=== PATIENT | male | born 1970 | race Caucasian/White ===

== ENCOUNTER 2018-08-18 11:01 | Outpatient (REF) | payer MEDICAID, SELFPAY ==
[2018-08-18 20:40] LABS: Anion Gap 9.7 mmol/L (3-11); BUN 14 mg/dL (7-18); CO2 29.3 mmol/L (21.0-32.0); CREATININE 0.86 mg/dL (0.70-1.30); Calcium 9.1 mg/dL (8.5-10.1); Chloride 103 mmol/L (98-107); Glucose 121 mg/dL (70-100); Potassium 4.5 mmol/L (3.5-5.1); Sodium 142 mmol/L (136-145); TSH 1.41 uIU/mL (0.358-3.74); Troponin I 0.02 ng/mL (0.00-0.06)
== END 2018-08-18 11:21 ==
LOC: NCHCN 11:01
PROVIDERS: PCP Internal Medicine; Visit Provider Nurse Practitioner Family
DX: R00.2 Palpitations (principal)
CPT/HCPCS: 80048; 84443; 84484

== ENCOUNTER 2019-03-13 18:02 | Emergency (ER) | payer MEDICAID, SELFPAY ==
[2019-03-13] VITALS (7 sets, daily range): BP systolic 134–146; BP diastolic 67–82; PULSE 64–91; RESP 15–22; TEMP 36.7; O2SAT 100
--- NOTE | 2019-03-13 18:08 | DI.CT_ITS ---
SYMPTOM/DIAGNOSIS: CHEST/BACK AND ABD PAIN CTA CHEST, ABDOMEN AND PELVIS: CT angiography was performed with multi slice acquisition and multi planar and 3D reconstruction. CT angiography of the chest, abdomen and pelvis was performed with a bolus infusion of 125 cc's of Omnipaque 350. The lungs are clear except for an incidental 2 mm. non calcified right middle lobe nodule. No mediastinal or hilar adenopathy. No thoracic aortic aneurysm or dissection. No pulmonary embolic disease. Major branch vessels of the thoracic aorta appear normal. Abdominal aorta is normal in appearance with no evidence of aneurysm or dissection. The celiac trunk, superior mesenteric artery, inferior mesenteric artery and renal arteries appear normal. Common internal and external iliac arteries appear normal. No abdominal wall hernia is seen. Liver and spleen are normal in appearance. Pancreas appears normal. Gallbladder has been surgically removed. No biliary dilatation is seen. Adrenals and kidneys are unremarkable except for a non obstructing 2 mm. left lower pole renal calculus. No abdominal or pelvic adenopathy is seen. Appendix is normal. No evidence of diverticulitis or bowel obstruction. CONCLUSION: Negative chest, abdomen and pelvis CTA. Incidental 2 mm. non calcified right middle lobe pulmonary nodule. Non obstructing left renal calculus.
--- NOTE | 2019-03-13 18:10 | W.ED.GENAD ---
Discharge Plan Disposition Patient Disposition: HOME Condition: Stable Discharge Details Chief Complaint: Chest Pain Clinical Impression: Epigastric pain Primary Care Provider: Bin Bowman ED Provider: Jose Perez Home Meds and New Rx's Prescriptions: No Action atorvastatin 40 mg Tablet 40 mg PO HS RF: 0 clonazepam 0.5 mg Tablet 0.5 mg PO HS RF: 0 ranitidine HCl [Zantac 75] 75 mg Tablet 150 mg PO DAILY RF: 0 pantoprazole 40 mg Tablet,Delayed Release (Dr/Ec) 40 mg PO DAILY RF: 0 aspirin 81 mg Tablet,Chewable 81 mg PO DAILY RF: 0 lisinopril 2.5 mg Tablet 2.5 mg PO DAILY AM RF: 0 lamotrigine 100 mg Tablet Extended Release 24hr 100 mg PO HS RF: 0 metoprolol tartrate 75 mg Tablet 75 mg PO DAILY AM RF: 0 Discharge Instructions Instructions: Epigastric Pain (ED) Additional Instructions: folllow up with your primary care provider within a week if your symptoms significantly worsen or you have new symptoms such as persistent vomit or fevers return to the emergency department Medical Decision Making 48 yo male who has a hx of cad s/p stent placement last year, prior cholecystectomy, htn, hld, former smoker, who comes in with chief complaint of intermittent epigastric burning that has been going on for over a year. He states he has been seen at [place] a few times recently for this and was told it was likely gastritis. He states he has had burning currently localized to the epigastric region since last night. Denies any diaphoresis, n/v, sob, does have some radiation of the pain to the back, denies any pain with exertion. He is in no distress on exam with soft abdomen with mild epigastric tenderness. Pain doesn't sound typical of acs but given his hx will obtain ecg and troponin, heart score is 3 based on age and risk factors. no evidence of dvt or hypoxia/tachycardia so doubt PE. Given radiation of the pain to the back will obtain CTA to eval for possible dissection pt's labs unremarkable, lipase machine is currently broken and not available for about 30 or so minutes per the lab. Imaging on my read unremarkable, awaiting vrad. Pt states his burning sensation improved significantly with mylana/lidocaine cta shows no acute findings, lipase still pending, he is still in no distress. I recommended delta troponin and ecg but pt declines this at this time and doesn't want to wait for this or lipase. He has capacity to make his own decisions and understands that the delta troponin/ecg would lower his risk of and disability and still doesn't want to stay for this. I did advise that he f/u with his pcp and return precautions given Differential Diagnosis gastritis, pancreatitis, esophagitis, nstemi, dissection Medical Records Medical records reviewed: Yes I reviewed the patient's medical records. Imaging Data Radiologic Study: Attestation: I personally reviewed and interpreted this imaging study as follows: Imaging: CT Scan Radiologist's impression: no acute findings Lab Data Lab results reviewed: Yes I reviewed the patient's lab results. ECG Data Attestation: I personally reviewed and interpreted this ECG (s) as follows: Prior ECG tracings: not available for review Interpretation: sinus rhythm, rate of 78, pr 144, qtc 401, no acute st t wave ischemic findings HPI General Mode of arrival: ambulatory. Date/Time Provider Initiated Documentation: 03/13/19 18:02. Limitations to Documentation: no limitations. Information obtained by: patient. History of Present Illness 48 year old M presents to the emergency department with the chief complaint of epigastric burning, described as moderate, Quality is described as burning, and is localized to the abdomen. Patient reports radiation to back. Patient started experiencing this day(s) (1) and it has been constant. No relieving factors improve symptom(s), No exacerbating factors reported . Patient notes no other symptoms.. Patient did receive the following treatments prior to arrival, other (pepto bismol) Related Data Home Medications Medication Instructions Recorded Confirmed aspirin 81 mg PO DAILY 03/13/19 03/13/19 atorvastatin 40 mg PO HS 03/13/19 03/13/19 clonazepam 0.5 mg PO HS 03/13/19 03/13/19 lamotrigine 100 mg PO HS 03/13/19 03/13/19 lisinopril 2.5 mg PO DAILY AM 03/13/19 03/13/19 metoprolol tartrate 75 mg PO DAILY AM 03/13/19 03/13/19 pantoprazole 40 mg PO DAILY 03/13/19 03/13/19 ranitidine HCl [Zantac 75] 150 mg PO DAILY 03/13/19 03/13/19 Allergies Allergy/AdvReac Type Severity Reaction Status Date / Time gabapentin Allergy Unverified 03/13/19 18:13 bupropion [From Wellbutrin] AdvReac Unverified 03/13/19 18:14 sertraline [From Zoloft] AdvReac Unverified 03/13/19 18:14 Review of Systems Review of Systems All systems reviewed & are unremarkable except as noted in HPI and below Constitutional Denies chills and Denies fever(s) Cardiovascular Denies dyspnea Respiratory Denies cough and Denies dyspnea Gastrointestinal Denies vomiting Integumentary/Breasts Denies rash PFSH Social History Smoking/Tobacco Use Status: Former Tobacco Use Alcohol Intake: never Drug use: Occasionally Substance use type: marijuana Do you feel safe at home: Yes Do you feel safe in your relationship?: Yes Exam Const General: no acute distress Orientation: alert HENMT Head: normal to inspection Ears: external ears normal General nose exam: external nose normal Mouth: moist mucous membranes Eyes General: appearance normal, both eyes and all related structures Neck Neck: normal visual inspection Resp Effort & Inspection: normal respiratory effort and able to speak in complete sentences Cardio Rate: regular rate GI Inspection: normal to inspection and no abdominal wall ecchymosis Skin General skin exam: no rashes or lesions noted Neuro General: alert and oriented x3 Extrem General: normal to inspection Psych Mental Status: mental status grossly normal
--- NOTE | 2019-03-13 18:17 | ED.GENADUL_ITS ---
Discharge Plan Disposition Patient Disposition: HOME Condition: Stable Discharge Details Chief Complaint: Chest Pain Clinical Impression: Epigastric pain Primary Care Provider: Bin Bowman ED Provider: Jose Perez Home Meds and New Rx's Prescriptions: No Action atorvastatin 40 mg Tablet 40 mg PO HS RF: 0 clonazepam 0.5 mg Tablet 0.5 mg PO HS RF: 0 ranitidine HCl [Zantac 75] 75 mg Tablet 150 mg PO DAILY RF: 0 pantoprazole 40 mg Tablet,Delayed Release (Dr/Ec) 40 mg PO DAILY RF: 0 aspirin 81 mg Tablet,Chewable 81 mg PO DAILY RF: 0 lisinopril 2.5 mg Tablet 2.5 mg PO DAILY AM RF: 0 lamotrigine 100 mg Tablet Extended Release 24hr 100 mg PO HS RF: 0 metoprolol tartrate 75 mg Tablet 75 mg PO DAILY AM RF: 0 Discharge Instructions Instructions: Epigastric Pain (ED) Additional Instructions: folllow up with your primary care provider within a week if your symptoms significantly worsen or you have new symptoms such as persistent vomit or fevers return to the emergency department Medical Decision Making 48 yo male who has a hx of cad s/p stent placement last year, prior cholecystectomy, htn, hld, former smoker, who comes in with chief complaint of intermittent epigastric burning that has been going on for over a year. He sta cade he has been seen at [place] a few times recently for this and was told it was likely gastritis. He states he has had burning currently localized to the epigastric region since last night. Denies any diaphoresis, n/v, sob, does have some radiation of the pain to the back, denies any pain with exertion. He is in no distress on exam with soft abdomen with mild epigastric tenderness. Pain doesn't sound typical of acs but given his hx will obtain ecg and troponin, heart score is 3 based on age and risk factors. no evidence of dvt or hypoxia/tachycardia so doubt PE. Given radiation of the pain to the back will obtain CTA to eval for possible dissection pt's labs unremarkable, lipase machine is currently broken and not available for about 30 or so minutes per the lab. Imaging on my read unremarkable, awaiting vrad. Pt states his burning sensation improved significantly with mylana/lidocaine cta shows no acute findings, lipase still pending, he is still in no distress. I recommended delta troponin and ecg but pt declines this at this time and doesn't want to wait for this or lipase. He has capacity to make his own decisions and understands that the delta troponin/ecg would lower his risk of and disability and still doesn't want to stay for this. I did advise that he f/u with his pcp and return precautions given Differential Diagnosis gastritis, pancreatitis, esophagitis, nstemi, dissection Medical Records Medical records reviewed: Yes I reviewed the patient's medical records. Imaging Data Radiologic Study: Attestation: I personally reviewed and interpreted this imaging study as follows: Imaging: CT Scan Radiologist's impression: no acute findings Lab Data Lab results reviewed: Yes I reviewed the patient's lab results. ECG Data Attestation: I personally reviewed and interpreted this ECG (s) as follows: Prior ECG tracings: not available for review Interpretation: sinus rhythm, rate of 78, pr 144, qtc 401, no acute st t wave ischemic findings HPI General Mode of arrival: ambulatory . Date/Time Provider Initiated Documentation: 03/13/19 18:02 . Limitations to Documentation: no limitations . Information obtained by: patient . History of Present Illness 48 year old M presents to the emergency department with the chief complaint of epigastric burning, described as moderate, Quality is described as burning, and is localized to the abdomen. Patient reports radiation to back. Patient started experiencing this day(s) (1) and it has been constant. No relieving factors improve symptom(s), No exacerbating factors reported . Patient notes no other symptoms.. Patient did receive the following treatments prior to arrival, other (pepto bismol) Related Data Home Medications Medication Instructions Recorded Confirmed aspirin 81 mg PO DAILY 03/13/19 03/13/19 atorvastatin 40 mg PO HS 03/13/19 03/13/19 clonazepam 0.5 mg PO HS 03/13/19 03/13/19 lamotrigine 100 mg PO HS 03/13/19 03/13/19 lisinopril 2.5 mg PO DAILY AM 03/13/19 03/13/19 metoprolol tartrate 75 mg PO DAILY AM 03/13/19 03/13/19 pantoprazole 40 mg PO DAILY 03/13/19 03/13/19 ranitidine HCl [Zantac 75] 150 mg PO DAILY 03/13/19 03/13/19 Allergies Allergy/AdvReac Type Severity Reaction Status Date / Time gabapentin Allergy Unverified 03/13/19 18:13 bupropion [From Wellbutrin] AdvReac Unverified 03/13/19 18:14 sertraline [From Zoloft] AdvReac Unverified 03/13/19 18:14 Review of Systems Review of Systems All systems reviewed & are unremarkable except as noted in HPI and below Constitutional Denies chills and Denies fever(s) Cardiovascular Denies dyspnea Respiratory Denies cough and Denies dyspnea Gastrointestinal Denies vomiting Integumentary/Breasts Denies rash PFSH Social History Smoking/Tobacco Use Status: Former Tobacco Use Alcohol Intake: never Drug use: Occasionally Substance use type: marijuana Do you feel safe at home: Yes Do you feel safe in your relationship?: Yes Exam Const General: no acute distress Orientation: alert HENMT Head: normal to inspection Ears: external ears normal General nose exam: external nose normal Mouth: moist mucous membranes Eyes General: appearance normal, both eyes and all related structures Neck Neck: normal visual inspection Resp Effort & Inspection: normal respiratory effort and able to speak in complete sentences Cardio Rate: regular rate GI Inspection: normal to inspection and no abdominal wall ecchymosis Skin General skin exam: no rashes or lesions noted Neuro General: alert and oriented x3 Extrem General: normal to inspection Psych Mental Status: mental status grossly normal
[2019-03-13 18:22] LABS: Abs Immature Grans 0.02 k/cumm (0.0-0.09); Absolute Basophil Count 0.04 k/cumm (0.0-0.2); Absolute Lymphocyte Count 1.88 k/cumm (1.2-3.4); Absolute Monocyte Count 0.56 k/cumm (0.11-0.7); Absolute Neutrophil Count 5.55 k/cumm (1.2-6.7); Basophils % 0.5; Eosinophils % 1.2; HCT 46.3 % (40.0-50.0); Immature Grans % 0.2; Lymphocytes % 23.1; Mean Corp. HGB Concentration 34.6 g/dL (32.0-36.0); Mean Corpuscular Hemoglobin 28.7 pg (27.0-33.0); Mean Corpuscular Volume 83.1 fL (80-95); Mean Platelet Volume 10.4 fL (8.0-11.0); Monocytes % 6.9; Neutrophils % 68.1; Platelet Count 178 x1000/uL (130-400); RBC 5.57 m/cumm (4.50-6.00); RBC Distribution Width 13.3 % (11.8-14.1); White Blood Cell Count 8.15 k/cumm (4.4-10.8)
[2019-03-13] MEDS: Omnipaque 350 MG/ML 100 ML BTL IJ (18:24)
[2019-03-13 18:40] LABS: INR 1.1 (0.9-1.1); PTT Activated 21.1 sec (21.0-31.4); Prothrombin Time 10.6 sec (9.3-11.0)
[2019-03-13] MEDS: Omnipaque 350 MG/ML 50 ML BTL IJ (18:40)
[2019-03-13] MEDS: Normal Saline Flush 10 ML SYR IVP (18:40)
[2019-03-13 19:02] LABS: ALT 36 U/L (12-78); AST 21 U/L (15-37); Albumin 3.9 g/dL (3.4-5.0); Alkaline Phosphatase 67 U/L (46-116); Anion Gap 10.7 mmol/L (3-11); BUN 11 mg/dL (7-18); Bilirubin, Total 0.9 mg/dL (0.2-1.0); CO2 27.3 mmol/L (21.0-32.0); CREATININE 1.09 mg/dL (0.70-1.30); Chloride 100 mmol/L (98-107); Glucose 118 mg/dL (70-100); Magnesium 1.9 mg/dL (1.8-2.4); Potassium 3.4 mmol/L (3.5-5.1); Sodium 138 mmol/L (136-145); Total Protein 7.8 g/dL (6.4-8.2); Troponin I 0.04 ng/mL (0.00-0.06)
--- NOTE | 2019-03-13 19:29 | DI.VRAD_ITS ---
EXAM: CT Angiography Chest With Contrast EXAM DATE/TIME: 03/13/2019 6:10 PM CLINICAL HISTORY: 48 years old, male; Signs and symptoms; Other: Chest/back/abdomen pain TECHNIQUE: Imaging protocol: Axial computed tomographic angiography images of the chest with intravenous contrast using CT angiography protocol. 3D rendering: MIP reconstructed images were created and reviewed. Radiation optimization: All CT scans at this facility use at least one of these dose optimization techniques: automated exposure control; mA and/or kV adjustment per patient size (includes targeted exams where dose is matched to clinical indication); or iterative reconstruction. Contrast material: OMNIPAQUE 350; Contrast volume: 125 ml; Contrast route: IV; COMPARISON: No relevant prior studies available. FINDINGS: Normal thoracic aorta without aneurysm or dissection. No airspace consolidation, pleural effusion or pneumothorax. There is a 2 mm nodule in the right middle lobe. No significant mediastinal lymphadenopathy. No acute fracture. IMPRESSION: No acute findings. EXAM: CT Angiography Abdomen and Pelvis With Contrast EXAM DATE/TIME: 03/13/2019 6:10 PM CLINICAL HISTORY: 48 years old, male; Signs and symptoms; Other: Chest/back/abdomen pain TECHNIQUE: Imaging protocol: Axial computed tomographic angiography images of the abdomen and pelvis with intravenous contrast material. 3D rendering: MIP reconstructed images were created and reviewed. Radiation optimization: All CT scans at this facility use at least one of these dose optimization techniques: automated exposure control; mA and/or kV adjustment per patient size (includes targeted exams where dose is matched to clinical indication); or iterative reconstruction. COMPARISON: No relevant prior studies available. FINDINGS: Normal abdominal aorta without aneurysm or dissection. The celiac trunk, superior mesenteric artery, bilateral renal arteries and inferior mesenteric artery are patent. Status post cholecystectomy. No biliary ductal dilatation. No hepatic masses. No hydronephrosis. 2 mm nonobstructing stone in the left kidney. Unremarkable adrenal glands, pancreas and spleen. No evidence of bowel obstruction. Normal appendix. Normal urinary bladder. No free fluid or free air. No acute fracture. IMPRESSION: No acute findings. Dictated and Authenticated by: Severiano Ann MD. Ordering:CASA Garcia MD
[2019-03-13 23:04] LABS: Calcium 9.3 mg/dL (8.5-10.1)
[2019-03-13 23:05] LABS: Lipase 175 U/L (73-393); NT-proBNP 303 pg/mL
== END 2019-03-13 19:41 | disposition home or self-care (01) ==
PROVIDERS: Emergency Provider Emergency Medicine; PCP Internal Medicine
DX: R10.13 Epigastric pain (principal); I25.10 Atherosclerotic heart disease of native coronary artery without angina pectoris; Z95.5 Presence of coronary angioplasty implant and graft; Z87.891 Personal history of nicotine dependence
CPT/HCPCS: 36415; 71275; 74177; 80053; 83690; 93005; 99285; 83735; 83880; 84484; 85025; 85610; 85730; 93010; J3490; Q9967

== ENCOUNTER 2019-03-24 00:05 | Outpatient (CLI) | payer MEDICAID, SELFPAY ==
--- NOTE | 2019-03-24 08:45 | MERGEMPI_ITS ---
*[facility]* *[facility]* [address] [place] [address] Myocardial Perfusion Imaging - SPECT Regadenoson Date of study: 03/24/2019 *PATIENT PRESENTATION* Height: 167.6cm (66in) Blood Pressure: Weight: 136.4kg (300lb) BSA: 2.6m^2 Referring physician: Jose Culver MD Ordering physician: Jude Dennison V Impressions: Abnormal study after pharmacologic stress. Summary: 1. Myocardial perfusion imaging: There is a moderate sized, severely intense, fixed defect involving the inferolateral wall(s). This suggests moderate myocardial infarction in the distribution of the left circumflex coronary artery. Overall ischemia: minimal. 2. The calculated left ventricular ejection fraction after stress: 50%. No left ventricular regional motion abnormality. Indication: R07.89. History: REASON FOR VISIT: PATIENT REPORTS BURNING SENSATION ORIGINATING IN ABDOMEN AND RADIATING UP TOWARDS CHEST AND UPPER AND LOWER BACK. BURNING SENSATION IS CONSTANT. OMEPRAZOLE AND CARAFATE HAVE NOT RESOLVED BURNING SENSATION. PATIENT HAS BEEN EXPERIENCING BURNING SENSATION FOR PAST 1 1/2 YEARS. PAST MEDICAL HISTORY: CAD S/P STENT PLACEMENT, CHELECYSTECTOMY, HYPERTENSION, HYPERLIPIDEMIA. FAMILY HISTORY: NONE. SMOKING STATUS: 25 PACK YEAR SMOKING HISTORY, QUIT IN 2011. EXERCISE ROUTINE: 20 MIN/DAY OF STATIONARY CYCLING. Risk factors: Hypertension. Obesity. Dyslipidemia. Cholesterol: 163mg/dl. HDL: 36mg/dl. LDL: 111mg/dl. Triglycerides: 146mg/dl. ALLERGIES: GABAPENTIN, BUPROPION, SERTRALINE. MEDICATIONS: RANITIDINE HCL 150MG, DAILY. PANTOPRAZOLE 40MG, DAILY. METOPROLOL TARTRATE 75MG, DAILY. LISINOPRIL 2.5MG, DAILY. LAMOTRIGINE 100MG, HS. CLONAZEPAM 0.5MG, HS. ATORVASTATIN 40MG, HS. ASPIRIN 81MG, DIALY. Imaging Technique: Protocol: Regadenoson. Acquisition: Gated SPECT; 1 day - rest/stress. The patient was imaged in the supine position. Attenuation correction used. Isotope administration: - Rest. Tc[99m]-sestamibi. Dose: 15mCi. Injection time: 09:30 AM. Injection to stress time: 00:45. - Stress. Tc[99m]-sestamibi. Dose: 45mCi. Injection time: 11:20 AM. 1-2 min before end of exercise Baseline ECG: SINUS RHYTHM, HEART RATE 62 BPM. Stress protocol: +--------+---+ + + + !Stage !HR !BP (mmHg) !Symptoms !Comments ! +--------+---+ + + + !Baseline!62 !150/82 (105)! ! ! +--------+---+ + + + !1 min !108!142/80 (101)!Resolved, mild dyspnea!Inject Regadenoson.! +--------+---+ + + + !3 min !93 !150/84 (106)! ! ! +--------+---+ + + + !6 min !75 !138/88 (105)! ! ! +--------+---+ + + + !1 min !---! ! !Inject Regadenoson.! +--------+---+ + + + * Stress results: The rate-pressure product for the peak heart rate and blood pressure was 58927df Hg/min. Stress ECG: MPI STRESS TEST ENDED IN 6 MIN WHEN EFFECTS OF REGADENOSON INJECTION SUBSIDED. APPROPRIATE HEART RATE AND BLOOD PRESSURE RESPONSE TO REGADENOSON INJECTION. MILD DYSPNEA EXPERIENCED, RESOLVING WITHIN A MINUTE. OCCASIONAL PVC NOTED. NO SIGNIFICANT ST SEGMENT CHANGES. Myocardial perfusion: Imaging information: gated. There is a moderate sized, severely intense, fixed defect involving the inferolateral wall(s). This suggests moderate myocardial infarction in the distribution of the left circumflex coronary artery. Overall ischemia: minimal. Ventricular Function (Wall Motion): The calculated left ventricular ejection fraction after stress: 50%. No left ventricular regional motion abnormality. Study data: Jose Culver MD supervised and was readily available during the procedure. This study was interpreted by [facility]. Study status: Routine. Consent: The risks, benefits, and alternatives to the procedure were explained to the patient and informed consent was obtained. Procedure: Initial setup. A baseline ECG was recorded. Surface ECG leads and manual cuff blood pressure measurements were monitored. Heart sounds: Normal. Lung sounds: Normal. Regadenoson stress test. Stress testing was performed, with regadenoson by intravenous bolus, for a total dose of 0.4mgover 10.00sec, followed by a 5ml saline flush. The infusion was terminated due to per protocol. The patient was unable to exercise due to METOPROLOL USE TODAY. Study completion: All catheters inserted during the procedure were removed. The patient tolerated the procedure well and was discharged from the lab. Discharge: The patient left the laboratory in stable condition. Birthdate: Patient birthdate: 1970. Sex: Gender: male. Study date: Study date: 03/24/2019. Study time: 00:01 AM. Electronically signed by Jose Culver MD 03/24/2019 16:58
[2019-03-24] MEDS: Regadenoson 0.4 MG/5 ML SYR IVP (11:28)
== END 2019-03-24 00:25 ==
PROVIDERS: PCP Internal Medicine; Visit Provider Physician Assistant Medical
DX: R07.89 Other chest pain (principal); R94.30 Abnormal result of cardiovascular function study, unspecified; I25.10 Atherosclerotic heart disease of native coronary artery without angina pectoris; I10 Essential (primary) hypertension; E78.5 Hyperlipidemia, unspecified; Z87.891 Personal history of nicotine dependence
CPT/HCPCS: 78452; 93017; J2785

== ENCOUNTER 2019-04-28 13:44 | Outpatient (CLI) | payer MEDICAID, SELFPAY ==
[2019-04-28 15:17] LABS: Calculated LDL 52; Cholesterol 113 mg/dL (50-200); HDL Cholesterol 51 mg/dL (40-60); TSH (W/Ref FT4) 1.55 uIU/mL (0.358-3.74); Triglyceride 50 mg/dL (30-150)
== END 2019-04-28 14:04 ==
PROVIDERS: PCP Internal Medicine; Visit Provider Student in an Organized Health Care Education/Training Program
DX: I10 Essential (primary) hypertension (principal); E78.5 Hyperlipidemia, unspecified; I21.19 ST elevation (STEMI) myocardial infarction involving other coronary artery of inferior wall; Z95.5 Presence of coronary angioplasty implant and graft
CPT/HCPCS: 36415; 80061; 83721; 84443

== ENCOUNTER 2019-05-17 01:43 | Outpatient (CLI) | payer MEDICAID, SELFPAY ==
--- NOTE | 2019-05-20 08:47 | HOLTER_ITS ---
Holter Monitor Report DATE OF DICTATION May 20, 2019 STUDY INDICATION Irregular heartbeat. REQUESTING PROVIDER Jonatan Morgan M.D. FINDINGS The patient was monitored for two days. Baseline sinus rhythm. Average heart rate 59 beats per minute, range 48 to 99 beats per minute. 88 PVCs. No VT. 6,636 PACs for 48 hours, 3.9% of total beats. 7 atrial runs, longest 7 beats, fastest 149 beats per minute. No patient events. FINAL INTERPRETTATION Occasional supraventricular ectopy and rare atrial runs, asymptomatic. Jonatan Morgan M.D. [facility]/debora T - 05/20/2019
== END 2019-05-17 02:03 ==
PROVIDERS: PCP Internal Medicine; Visit Provider Student in an Organized Health Care Education/Training Program
DX: I49.9 Cardiac arrhythmia, unspecified (principal); I49.3 Ventricular premature depolarization; I49.1 Atrial premature depolarization
CPT/HCPCS: 93225

== ENCOUNTER 2019-05-19 15:54 | Outpatient (CLI) | payer MEDICAID, SELFPAY | END 2019-05-19 16:14 | PROVIDERS: PCP Internal Medicine; Visit Provider Student in an Organized Health Care Education/Training Program | DX: I49.9 Cardiac arrhythmia, unspecified (principal); I49.3 Ventricular premature depolarization; I49.1 Atrial premature depolarization | CPT/HCPCS: 93226 ==

== ENCOUNTER 2020-05-16 09:27 | Outpatient (REF) | payer MEDICAID, SELFPAY ==
[2020-05-16 20:07] LABS: Hemoglobin A1C 4.8 % (3.8-5.6)
[2020-05-16 20:11] LABS: TSH (W/Ref FT4) 1.95 uIU/mL (0.36-3.74)
== END 2020-05-16 09:47 ==
LOC: NCHCN 09:27
PROVIDERS: PCP Internal Medicine; Visit Provider Nurse Practitioner Family
DX: I48.91 Unspecified atrial fibrillation (principal); R73.9 Hyperglycemia, unspecified
CPT/HCPCS: 83036; 84443

== ENCOUNTER 2021-04-16 18:19 | Outpatient (REF) | payer MEDICAID, SELFPAY ==
[2021-04-17 01:31] LABS: COVID-19 RT-PCR UVMMC Result Negative (Negative)
== END 2021-04-16 18:20 | disposition home or self-care (01) ==
LOC: NCHCN 18:19
PROVIDERS: PCP Internal Medicine; Visit Provider Nurse Practitioner Family
DX: Z20.822 Contact with and (suspected) exposure to COVID-19 (principal); J06.9 Acute upper respiratory infection, unspecified
CPT/HCPCS: U0003

== ENCOUNTER 2021-06-13 21:23 | Outpatient (REF) | payer MEDICAID, SELFPAY ==
[2021-06-13 20:41] LABS: Bacteria Negative HPF (Negative); Casts Negative LPF (Negative); Crystals Negative HPF (Negative); Epithelial Cells Few HPF (Negative); Mucus Negative (Negative); Other Cells Negative (Negative); RBC Negative HPF (0-2); WBC Negative HPF (0-5)
[2021-06-13 20:42] LABS: C & S Indicated? C&S Done As Ordered
== END 2021-06-13 21:24 | disposition home or self-care (01) ==
LOC: NCHCN 21:23
PROVIDERS: PCP Internal Medicine; Visit Provider Physician Assistant
DX: N39.0 Urinary tract infection, site not specified (principal)
CPT/HCPCS: 81015; 87086

== ENCOUNTER 2021-06-20 09:04 | Outpatient (REF) | payer MEDICAID, SELFPAY ==
[2021-06-20 21:03] LABS: HCT 44.8 % (40.0-50.0); HGB 14.4 g/dL (13.5-17.5); MCH 27.1 pg (27.0-33.0); MCHC 32.1 % (32.0-36.0); MCV 84.4 fL (80-95); MPV 10.2 fL (8.0-11.0); Platelet Count 217 10^3/uL (130-400); RBC 5.31 10^6/uL (4.36-5.78); RDW 17.2 % (11.8-14.1); RDW-SD 53.2 fL; WBC 6.52 10^3/uL (4.4-10.8)
[2021-06-20 21:34] LABS: ALT 35 U/L (16-63); AST 21 U/L (15-37); Albumin 3.8 g/dL (3.4-5.0); Alkaline Phosphatase 53 U/L (46-116); Anion Gap 7.2 mmol/L (3-11); BUN 21 mg/dL (7-18); Bilirubin, Total 0.5 mg/dL (0.2-1.0); CO2 26.8 mmol/L (21.0-32.0); CREATININE 1.2 mg/dL (0.70-1.30); Calcium 8.8 mg/dL (8.5-10.1); Chloride 103 mmol/L (98-107); Glucose 126 mg/dL (74-106); Potassium 4.3 mmol/L (3.5-5.1); Sodium 137 mmol/L (136-145); TSH (W/Ref FT4) 3.32 uIU/mL (0.36-3.74); Total Protein 7.5 g/dL (6.4-8.2)
== END 2021-06-20 09:05 | disposition home or self-care (01) ==
LOC: NCHCN 09:04
PROVIDERS: PCP Internal Medicine; Visit Provider Physician Assistant
DX: I10 Essential (primary) hypertension (principal); I48.91 Unspecified atrial fibrillation
CPT/HCPCS: 80053; 85027; 84443

== ENCOUNTER 2021-12-26 17:40 | Outpatient (REF) | payer MEDICAID, SELFPAY ==
[2021-12-26 21:28] LABS: ALT 44 U/L (16-63); AST 25 U/L (15-37); Albumin 3.7 g/dL (3.4-5.0); Alkaline Phosphatase 51 U/L (46-116); Anion Gap 10.3 mmol/L (3-11); BUN 14 mg/dL (7-18); Bilirubin, Total 0.5 mg/dL (0.2-1.0); CO2 27.7 mmol/L (21.0-32.0); CREATININE 1.2 mg/dL (0.70-1.30); Chloride 102 mmol/L (98-107); Glucose 110 mg/dL (74-106); Potassium 4.1 mmol/L (3.5-5.1); Sodium 140 mmol/L (136-145); TSH (W/Ref FT4) 2.74 uIU/mL (0.36-3.74); Total Protein 7.5 g/dL (6.4-8.2)
== END 2021-12-26 17:41 | disposition home or self-care (01) ==
LOC: NCHCN 17:40
PROVIDERS: PCP Internal Medicine; Visit Provider Physician Assistant
DX: I10 Essential (primary) hypertension (principal); I48.91 Unspecified atrial fibrillation
CPT/HCPCS: 80053; 85027; 84443

== ENCOUNTER 2022-10-22 11:39 | Outpatient (CLI) | payer MEDICAID, SELFPAY ==
--- NOTE | 2022-10-22 11:30 | DI.RAD_ITS ---
Exam(s) XR KNEE RT 3V AP,LAT,BRYON EXAM: XR KNEE RT 3V AP,LAT,BRYON CLINICAL HISTORY: R knee pain. TECHNIQUE: 2D digital imaging was performed of the right knee. Three views obtained. Merchant, AP an d PA tunnel views were obtained. COMPARISON: No exams were available for comparison FINDINGS: BONES: No acute fracture is present. No bony destructive lesion is seen. JOINTS: The knee is normally aligned. There are mild degenerative changes in the medial joint compart ment with joint space narrowing and periarticular spurring. SOFT TISSUE: Normal. IMPRESSION: Degenerative changes of the knee. DATA REPOSITORY: RADIATION DOSE DELIVERED:
== END 2022-10-22 11:40 | disposition home or self-care (01) ==
LOC: DIORS 11:39
PROVIDERS: PCP Internal Medicine; Referring Provider Internal Medicine; Visit Provider Physician Assistant
DX: M17.11 Unilateral primary osteoarthritis, right knee (principal)
CPT/HCPCS: 73562

== ENCOUNTER 2022-12-04 18:12 | Outpatient (REF) | payer MEDICAID, SELFPAY ==
[2022-12-04 21:16] LABS: Abs Immature Grans 0.03 10^3/uL (0.0-0.06); Absolute Basophil Count 0.05 10^3/uL (0.0-0.2); Absolute Eosinophil Count 0.14 10^3/uL (0.0-0.7); Absolute Lymphocyte Count 2.09 10^3/uL (1.2-3.4); Absolute Monocyte Count 0.59 10^3/uL (0.1-0.8); Absolute Neutrophil Count 4.26 10^3/uL (1.2-6.7); Basophils % 0.7; HCT 42.4 % (40.0-50.0); HGB 13.7 g/dL (13.5-17.5); Immature Grans % 0.4; Lymphocytes % 29.2; MCH 28.6 pg (27.0-33.0); MCHC 32.3 % (32.0-36.0); MCV 89 fL (80-95); MPV 10.5 fL (8.0-11.0); Monocytes % 8.2; Neutrophils % 59.5; Platelet Count 217 10^3/uL (130-400); RBC 4.79 10^6/uL (4.36-5.78); RDW-SD 48.4 fL; WBC 7.16 10^3/uL (4.4-10.8)
[2022-12-04 21:34] LABS: ALT 43 U/L (16-63); AST 43 U/L (15-37); Albumin 3.6 g/dL (3.4-5.0); Alkaline Phosphatase 67 U/L (46-116); Anion Gap 8.5 mmol/L (3-11); BUN 10 mg/dL (7-18); CO2 27.5 mmol/L (21.0-32.0); Calcium 9.4 mg/dL (8.5-10.1); Chloride 101 mmol/L (98-107); Estimated GFR 90.56 (mL/min/1.73m2); Glucose 111 mg/dL (74-106); Potassium 4.6 mmol/L (3.5-5.1); Sodium 137 mmol/L (136-145); Total Protein 7.8 g/dL (6.4-8.2)
[2022-12-04 21:35] LABS: Hemoglobin A1C 5.2 % (<5.7)
[2022-12-04 23:11] LABS: Bilirubin, Total 0.8 mg/dL (0.2-1.0)
== END 2022-12-04 18:13 | disposition home or self-care (01) ==
LOC: NCHCN 18:12
PROVIDERS: PCP Internal Medicine; Visit Provider Physician Assistant
DX: I10 Essential (primary) hypertension (principal); R73.9 Hyperglycemia, unspecified; F41.8 Other specified anxiety disorders; E66.01 Morbid (severe) obesity due to excess calories
CPT/HCPCS: 80053; 83036; 85025

== ENCOUNTER 2022-12-25 14:50 | Outpatient (CLI) | payer MEDICAID, SELFPAY ==
--- NOTE | 2022-12-25 14:15 | DI.RAD_ITS ---
Exam(s) XR KNEE LT 3V AP,LAT,BRYON EXAM: XR KNEE LT 3V AP,LAT,BRYON CLINICAL HISTORY: LEFT KNEE PAIN. TECHNIQUE: 2D digital imaging was performed. Three views. COMPARISON: CR XR KNEE RT 3V AP,LAT,BRYON from 10/22/2022 FINDINGS: BONES: No acute fracture is present. No bony destructive lesion is seen. Enchondroma proximal tibial metaphysis. JOINTS: The knee is normally aligned. Joint spaces are maintained. Minimal periarticular spurring. No joint effusion is seen. SOFT TISSUE: Tiny calcification adjacent to the lateral aspect of the patella, likely not within join t space. IMPRESSION: Minimal degenerative changes. No acute abnormality. DATA REPOSITORY: RADIATION DOSE DELIVERED:
== END 2022-12-25 14:51 | disposition home or self-care (01) ==
LOC: DIORS 14:50
PROVIDERS: PCP Internal Medicine; Referring Provider Internal Medicine; Visit Provider Student in an Organized Health Care Education/Training Program
DX: M17.12 Unilateral primary osteoarthritis, left knee (principal)
CPT/HCPCS: 73562

== ENCOUNTER 2023-12-17 18:12 | Outpatient (REF) | payer MEDICAID, SELFPAY ==
--- OUTSIDE RECORDS SUMMARY | 2023-12-17 18:16 | XMS_ITS | Continuity of Care Document ---
Author Name Unknown Organization [facility] Address [address] [place] [address] Care Team Providers Care Assistant Professor Of Chemistry Name Role Phone Primeau IPHCBin Primary Care Physician Encounter [facility]_[place] Date(s): 09/24/22 - 09/24/22 [facility] [address] [place] [address] Discharge Disposition: Home or Self Care Attending Physician: Amira Hooks Admitting Physician: Amira Hooks Referring Physician: Amira Hooks Allergies, Adverse Reactions, Alerts Substance Reaction Severity Status adenosine 1 Rapid heart beat Severe Active gabapentin Unknown Active buPROPion Unknown Active Zoloft Chest pain Severe Active 1PT had an adverse reaction HR went up to 250%27s Assessment and Plan Future Appointments Medications furosemide 20 mg oral tablet 20 mg = 1 tab, Oral, Daily, # 90 tab, 4 Refill(s), Pharmacy: [facility] 4[facility] Start Date: 04/23/22 Status: Ordered metoprolol succinate 50 mg oral tablet, extended release 50 mg = 1 tab, Oral, BID, # 60 tab, 11 Refill(s), Pharmacy: [facility] Start Date: 04/23/22 Status: Ordered Problem List Condition Confirmation Course Effective Dates Status H ealth Status Informant Atrial fibrillation Confirmed 11/28/20 Active Coronary arteriosclerosis Confirmed 11/28/20 Active Epigastric pain Confirmed Active Hypertensive disorder Confirmed 11/28/20 Active Nocturnal dyspnea Confirmed 08/11/20 Active Obstructive sleep apnea syndrome Confirmed Active Supraventricular tachycardia Confirmed 11/28/20 Active Procedures Procedure Date Related Diagnosis Body Site Status Cardiac ablation using fluor oscopy guidance 1 01/10/21 Completed Cardiac catheterization 2 01/10/21 Completed Tonsillectomy Completed Social History Social History Type Response Smoking Status Smoking tobacco use: Former tobacco user;Former smokeless tobacco user, quit more than 30 days ago; Number of years: 15; entered on: 08/22/22 Sex Male Patient Care team information Personnel Name: Bin Boyce MD Address: Address: [address]
--- OUTSIDE RECORDS SUMMARY | 2023-12-17 18:16 | XMS_ITS | Continuity of Care Document ---
Author Name Unknown Organization [facility] Address [address] [place] [address] Care Team Providers Care Instructional Support Technician Name Role Phone Primeau [facility] Primary Care Physician Encounter [facility] [id number] Date(s): 12/10/23 - 12/10/23 [facility] [address] [place] [address] Discharge Disposition: Home Allergies, Adverse Reactions, Alerts Substance Reaction Severity Status adenosine 1 Rapid heart beat Severe Active gabapentin Unknown Active buPROPion Unknown Active Zoloft Chest pain Severe Active 1PT had an adverse reaction HR went up to 250%27s Assessment and Plan Future Appointments Future Scheduled Tests Laboratory* Basic Metabolic Panel 11/06/23 Medications aspirin 81 mg oral capsule 81 mg = 1 cap, Oral, Daily, do not exceed 48 capsules in 24 hours, # 30 cap, 0 Refill(s) Start Date: 09/30/23 Status: Ordered clonazePAM 1 mg oral tablet 1 mg = 1 tab, Oral, TID, 0 Refill(s) Start Date: 09/30/23 Status: Ordered Eliquis 5 mg oral tablet 5 mg = 1 tab, Oral, BID, # 60 tab, 0 Refill(s) Start Date: 09/30/23 Status: Ordered lamoTRIgine 200 mg oral tablet 200 mg = 1 tab, Oral, BID, # 60 tab, 0 Refill(s) Start Date: 09/30/23 Status: Ordered lisinopril 2.5 mg oral tablet 2.5 mg = 1 tab, Oral, Daily, # 30 tab, 0 Refill(s) Start Date: 09/30/23 Status: Ordered metoprolol succinate 50 mg oral tablet, extended release 50 mg = 1 tab, Oral, BID, # 180 tab, 4 Refill(s), Pharmacy: [facility], 168, cm, 11/17/22 13:46:00 EST, Height/Length Dosing, 210, kg, 11/17/22 13:46:00 EST, Weight Dosing Start Date: 06/24/23 Stop Date: 09/16/24 Status: Ordered Potassium Chloride (Tcy-Cenx-Hek 10) 10 mEq oral tablet, extended release 4 tabs, Oral, Daily, # 360 tab, 3 Refill(s), Pharmacy: [facility], 167.64, cm, 10/06/23 12:44:00 EST, Height, 204.12, kg, 10/06/23 12:54:00 EST, Weight Dosing Start Date: 10/31/23 Status: Ordered Pyridium 200 mg oral tablet 200 mg = 1 tab, Oral, TID(PC), # 9 tab, 0 Refill(s), Pharmacy: [facility], 168, cm, 11/17/22 13:46:00 EST, Height/Length Dosing, 210, kg, 11/17/22 13:46:00 EST, Weight Dosing Start Date: 11/17/22 Stop Date: 11/20/22 Status: Ordered torsemide 40 mg oral tablet 40 mg = 1 tab, Oral, Daily, # 90 tab, 4 Refill(s), Pharmacy: [facility] [id number], 167.64, cm, 09/30/23 13:19:00 EST, Height, 206.6, kg, 09/30/23 13:30:00 EST, Weight Dosing Start Date: 09/30/23 Status: Ordered Trulicity Pen 3 mg/0.5 mL subcutaneous solution 3 mg = 0.5 mL, Subcutaneous, every week, rotate injection sites, # 2 mL, 0 Refill(s) Start Date: 09/30/23 Status: Ordered Problem List Condition Confirmation Course Effective Dates Status H ealth Status Informant Atrial fibrillation Confirmed 11/28/20 Active Coronary arteriosclerosis Confirmed 11/28/20 Active Epigastric pain Confirmed Active Hypertensive disorder Confirmed 11/28/20 Active Nocturnal dyspnea Confirmed 08/11/20 Active Obstructive sleep apnea syndrome 1 Confirmed Active Supraventricular tachycardia Confirmed 11/28/20 Active 1CPAP 7-3 cm [place] Procedures Procedure Date Related Diagnosis Body Site Status Cardiac ablation using fluor oscopy guidance 1 01/10/21 Completed Cardiac catheterization 2 01/10/21 Completed Tonsillectomy Completed Social History Social History Type Response Smoking Status Smoking tobacco use: Former tobacco user;Former smokeless tobacco user, quit more than 30 days ago; Number of years: 15; entered on: 10/06/23 Sex Male Patient Care team information Care Team Personnel Name: Suresh Roth MD Position: Physician Member Role: Informed Provider Address: Address: [address] [place] [address] Name: Bin Boyce MD Position: No Access Member Role: Primary Care Physician Address: Address: [facility] [address] Care Team Related Persons Name: MASON GRAY Address: Home [address] [place], [id number]
--- OUTSIDE RECORDS SUMMARY | 2023-12-17 18:16 | XMS_ITS | Continuity of Care Document ---
Author Name Unknown Organization [facility] Address [address] [place] [address] Care Team Providers Care Clinical Cytogeneticist Scientist Name Role Phone Primeau Bin NANCE Primary Care Physician Encounter [facility]_[place] Date(s): 11/17/22 - 11/17/[address] [phone] Discharge Disposition: Home or Self Care Attending Physician: Bin Alcantar MD Admitting Physician: Bin Alcantar MD Allergies, Adverse Reactions, Alerts Substance Reaction Severity Status adenosine 1 Rapid heart beat Severe Active buPROPion Unknown Active Zoloft Chest pain Severe Active gabapentin Unknown Active 1PT had an adverse reaction HR went up to 250%27s Assessment and Plan Extracted from: Title:Clinical Document Author:Yaquelin Salas te:11/17/22 Diagnosis: Urinary frequency Comment: Diagnostic Tests Pending * Urine Culture 11/17/22 Functional Status 11/17/22 Family Member Travel History No recent t ravel Recent Travel History No recent travel Other exposure to Infectious Disease Non e Medications Bactrim 400 mg-80 mg oral tablet 2 tab, Oral, BID, # 40 tab, 0 Refill(s), Pharmacy: [facility], 168, cm, 11/17/22 13:46:00 EST, Height/Length Dosing, 210, kg, 11/17/22 13:46:00 EST, Weight Dosing Start Date: 11/17/22 Stop Date: 11/27/22 Status: Ordered furosemide 20 mg oral tablet 20 mg = 1 tab, Oral, Daily, # 90 tab, 4 Refill(s), [facility] Start Date: 04/23/22 Status: Ordered metoprolol succinate 50 mg oral tablet, extended release 50 mg = 1 tab, Oral, BID, # 60 tab, 11 Refill(s), Pharmacy: [facility] Start Date: 04/23/22 Status: Ordered Pyridium 200 mg oral tablet 200 mg = 1 tab, Oral, TID(PC), # 9 tab, 0 Refill(s), Pharmacy: [facility], 168, cm, 11/17/22 13:46:00 EST, Height/Length Dosing, 210, kg, 11/17/22 13:46:00 EST, Weight Dosing Start Date: 11/17/22 Stop Date: 11/20/22 Status: Ordered Problem List Condition Confirmation Course [...] Cardiac catheterization 2 01/10/21 Completed Tonsillectomy Completed Results Laboratory List Name Date Urinalysis with Micro if Indicated and C ulture if Indicated 11/17/22 Urinalysis Microscopic 11/17/22 Most recent to oldest [Reference Range]: 1 UA Color Yellow (11/17/22 2:15 PM) UA WBC [0-3] 10-25 *ABN* (11/17/22 2:15 PM) UA Urobilinogen Normal (11/17/22 2:15 PM) UA Bili [Negative] Negative (11/17/22 2:15 PM) UA Ketones Negative (11/17/22 2:15 PM) UA RBC [0-2] 3-5 (11/17/22 2:15 PM) UA Leuk Est 3+ *ABN* (11/17/22 2:15 PM) UA Nitrite Negative (11/17/22 2:15 PM) UA Glucose [Negative] Negative (11/17/22 2:15 PM) UA Bacteria Few /HPF *ABN* (11/17/22 2:15 PM) UA Protein Negative (11/17/22 2:15 PM) UA Blood 2+ *ABN* (11/17/22 2:15 PM) UA Mucous None Seen /HPF (11/17/22 2:15 PM) UA Spec Grav 1.010 *NA* (11/17/22 2:15 PM) UA Squam Epithelial [None Seen] Few *ABN* (11/17/22 2:15 PM) UA pH 7.0 *NA* (11/17/22 2:15 PM) UA Appear Clear (11/17/22 2:15 PM) UA Culture Ind?. Indicated (11/17/22 2:15 PM) Vital Signs Most recent to oldest [Reference Range]: 1 Temperature Temporal Artery [36-38 Deg C ] 36.6 Deg C (11/17/22 1:21 PM) Peripheral Pulse Rate [60-100 bpm] 103 b pm *HI* (11/17/22 1:21 PM) Respiratory Rate [12-24 br/min] 18 br/mi n (11/17/22 1:21 PM) Blood Pressure [90-140/60-90 mmHg] 142/8 8mmHg *HI* (11/17/22 1:21 PM) Weight Dosing 210.00 kg (11/17/22 1:46 PM) Weight Estimated 210.00 kg (11/17/22 1:21 PM) Height/Length Dosing 168.000 cm (11/17/22 1:46 PM) Height/Length Estimated 168.000 cm (11/17/22 1:21 PM) Social History Social History Type Response Smoking Status Smoking tobacco use: Former tobacco user;Former smokeless tobacco user, quit more than 30 days ago; Number of years: 15; entered on: 08/22/22 Sex Male Physician Emergency department Note * Bin Alcantar MD: PERFORM Event Display: ED Note Physician Authored Date: [id number] ROLO GRAY :1970 Age:51 years Sex:Male Visit Date:11/17/2022 Primary Care Physician: Bin Boyce MD Name: Rolo Jeff CC: Urinary urgency. HPI: Patient reports having dark urine x5 to 6 days. ??Developed urinary urgency last night. ??Experienced night sweats last night. ??Similar to prior episode of urinary tract infection. Independent History: Med/Surg/Fam/Soc Hx: External Notes: Medications: ROS: Review of systems negative for objective fever, chest pain, palpitations, pulmonary symptoms, upper respiratory symptoms, weight change, visual change, vomiting, abnormal bleeding, skin rash. ??Review of systems is positive for night sweats, urinary urgency, bilateral knee pain. Exam: Patient is in no acute distress. ??He converses normally. ??Establishes maintains eye contact. ??Respirations are normal. ??Mental status is normal. ??Abdomen is obese precluding effective palpation of the abdomen. Labs: Urinalysis demonstrates pyuria. ??Culture is pending Imaging:?? Independent Test Interpretatiion: ?? Medical Decision Making: ?Problem Complexity: Low data Complexity: Limited ?Risk of Management: Low risk ?Codin Diff Dx and Evaluation:?? ED Course:?? Discussion: Disposition: Home Impression: Urinary tract infection Electronically Signed on 11/17/22 03:20 PM Bin Alcantar MD Emergency department Discharge instructions * Bin Alcantar MD: PERFORM Event Display: ED Discharge Information Authored Date: [id number] ROLO GRAY :1970 Age:51 years Sex:Male Visit Date:11/17/2022 Primary Care Physician: Bin Boyce MD Discharge Instructions We would like to thank you for allowing us to assist you with your healthcare needs. The following includes patient education materials and information regarding your injury/illness. Discharge Vitals Temperature??(Temporal Artery) 97.9 ??F (36.6 ??C) Heart Rate??(Peripheral) 103 Respiratory Rate?? 18 Blood Pressure?? 142/88?? Height?? 66.14 in (168.000 cm) Weight??(Estimated) 463.05 lb (210.00 kg) Allergies Zoloft??(Chest pain) adenosine??(Rapid heart beat) buPROPion gabapentin What to Do Next Instructions from Your Care Team You do have a urinary tract infection. ??Take??2 Bactrim double strength twice daily for 10 days.??The culture of your??urine will be??available on Friday. ?? Take Pyridium 200 mg up to 3 times per day as needed for??urinary??urgency/discomfort. ?? There should be gradual improvement. ?? Follow-up here with your primary care provider as needed. ?? Bin Alcantar MD You were treated today on an emergency basis; it may be bermudez to contact your primary care provider to notify them of your visit today. You may have been referred to your regular doctor or a specialist, please follow up as instructed. If your condition worsens or you can't get in to see the doctor, contact the Emergency Department. Medications What How Much When Why Instructions Next Dose New phenazopyridine (Pyridium 200 mg oral tablet) 1 tab Oral (given by mouth) 3 times a day after meals Duration: 3 Days Pickup at [facility] 415 New sulfamethoxazole-trimethoprim (Bactrim 400 mg-80 mg oral tablet) 2 tab Oral (given by mouth) 2 times a day Duration: 10 Days Pickup at [facility] 415 Unchanged furosemide (furosemide 20 mg oral tablet) 1 tab Oral (given by mouth) Every day [facility] Unchanged metoprolol (metoprolol succinate 50 mg oral tablet, extended release) 1 tab Oral (given by mouth) 2 times a day Afib Pharmacy Information [facility] 4156: [address] [id number] [phone] Tests Performed Medications and Immunizations Administered Given Bactrim DS, 2 tab, Oral Lab Test Name Test Result Date/Time UA Color YELLOW. 11/17/2022 14:15 EST UA Appear CLEAR. 11/17/2022 14:15 EST UA Glucose NEGATIVE 11/17/2022 14:15 EST UA Bili NEGATIVE 11/17/2022 14:15 EST UA Ketones NEGATIVE 11/17/2022 14:15 EST UA Spec Grav 1.010 11/17/2022 14:15 EST UA Blood 2+ 11/17/2022 14:15 EST UA pH 7.0 11/17/2022 14:15 EST UA Protein NEGATIVE 11/17/2022 14:15 EST UA Urobilinogen 0.2 Uro 11/17/2022 14:15 EST UA Nitrite NEGATIVE 11/17/2022 14:15 EST UA Leuk Est 3+ 11/17/2022 14:15 EST UA Culture Ind?. Indicated 11/17/2022 14:15 EST UA WBC 10-25 11/17/2022 14:15 EST UA RBC 3-5 11/17/2022 14:15 EST UA Squam Epithelial Few 11/17/2022 14:15 EST UA Mucous None Seen 11/17/2022 14:15 EST UA Bacteria Few 11/17/2022 14:15 EST Patient/Senior Drafter Signature Patient Name:ROLO GRAY I have received this information and my questions have been answered. Patient/Senior Drafter Name: Patient/Senior Drafter Signature: Relationship to Patient: Witness Name/Signature: Date: Electronically Signed on: 11/17/2022 15:20 ESTSigned by:Bin Taylor MD: PERFORM Event Display: ED Discharge Information Authored Date: [id number] ROLO GRAY :1970 Age:51 years Sex:Male Visit Date:11/17/2022 Primary Care Physician: Gracie [facility], Bin Moe MD Discharge Instructions We would like to thank you for allowing us to assist you with your healthcare needs. The following includes patient education materials and information regarding your injury/illness. Discharge Vitals Temperature??(Temporal Artery) 97.9 ??F (36.6 ??C) Heart Rate??(Peripheral) 103 Respiratory Rate?? 18 Blood Pressure?? 142/88?? Height?? 66.14 in (168.000 cm) Weight??(Estimated) 463.05 lb (210.00 kg) Allergies Zoloft??(Chest pain) adenosine??(Rapid heart beat) buPROPion gabapentin What to Do Next Instructions from Your Care Team You do have a urinary tract infection. ??Take??2 Bactrim double strength twice daily for 10 days.??The culture of your??urine will be??available on Friday. ?? Take Pyridium 200 mg up to 3 times per day as needed for??urinary??urgency/discomfort. ?? There should be gradual improvement. ?? Follow-up here with your primary care provider as needed. ?? Bin Alcantar MD You were treated today on an emergency basis; it may be bermudez to contact your primary care provider to notify them of your visit today. You may have been referred to your regular doctor or a specialist, please follow up as instructed. If your condition worsens or you can't get in to see the doctor, contact the Emergency Department. Medications What How Much When Why Instructions Next Dose New phenazopyridine (Pyridium 200 mg oral tablet) 1 tab Oral (given by mouth) 3 times a day after meals Duration: 3 Days Pickup at [facility] 415 New sulfamethoxazole-trimethoprim (Bactrim 400 mg-80 mg oral tablet) 2 tab Oral (given by mouth) 2 times a day Duration: 10 Days Pickup at [place] [address] Unchanged furosemide (furosemide 20 mg oral tablet) 1 tab Oral (given by mouth) Every day Edema [facility] Unchanged metoprolol (metoprolol succinate 50 mg oral tablet, extended release) 1 tab Oral (given by mouth) 2 times a day Afib Pharmacy Information [place] [address]: [address] [place] [address] [phone] Tests Performed Medications and Immunizations Administered Given Bactrim DS, 2 tab, Oral Lab Test Name Test Result Date/Time UA Color YELLOW. 11/17/2022 14:15 EST UA Appear CLEAR. 11/17/2022 14:15 EST UA Glucose NEGATIVE 11/17/2022 14:15 EST UA Bili NEGATIVE 11/17/2022 14:15 EST UA Ketones NEGATIVE 11/17/2022 14:15 EST UA Spec Grav 1.010 11/17/2022 14:15 EST UA Blood 2+ 11/17/2022 14:15 EST UA pH 7.0 11/17/2022 14:15 EST UA Protein NEGATIVE 11/17/2022 14:15 EST UA Urobilinogen 0.2 Uro 11/17/2022 14:15 EST UA Nitrite NEGATIVE 11/17/2022 14:15 EST UA Leuk Est 3+ 11/17/2022 14:15 EST UA Culture Ind?. Indicated 11/17/2022 14:15 EST UA WBC 10-25 11/17/2022 14:15 EST UA RBC 3-5 11/17/2022 14:15 EST UA Squam Epithelial Few 11/17/2022 14:15 EST UA Mucous None Seen 11/17/2022 14:15 EST UA Bacteria Few 11/17/2022 14:15 EST Patient/Senior Drafter Signature Patient Name:ROLO GRAY I have received this information and my questions have been answered. Patient/Senior Drafter Name: Patient/Senior Drafter Signature: Relationship to Patient: Witness Name/Signature: Date: Electronically Signed on: 11/17/2022 15:16 ESTSigned by:[facility] Discharge summary * Yaquelin Salas: PERFORM Event Display: Discharge Note Authored Date: [id number] * Yaquelin Salas: PERFORM Event Display: Discharge Note Authored Date: [id number] Diagnosis: Urinary frequency Comment: Electronically Signed on 11/17/22 03:48 PM Yaquelin Salas Patient Care team information Personnel Name: Bin Boyce MD Address: Address: [address], [place] [address]
--- OUTSIDE RECORDS SUMMARY | 2023-12-17 18:16 | XMS_ITS | Continuity of Care Document ---
Author Name Unknown Organization [facility] Address [address] [place] [address] Care Team Providers Care Cask Maker Name Role Phone Primeau IPHCBin Primary Care Physician Encounter [facility]_[place] Date(s): 09/11/23 - 09/11/[address] [address] Discharge Disposition: Home or Self Care Attending Physician: Amira Hooks PA-C Admitting Physician: Amira Hooks PA-C Referring Physician: Amira Hooks PA-C Allergies, Adverse Reactions, Alerts Substance Reaction Severity Status adenosine 1 Rapid heart beat Severe Active gabapentin Unknown Active buPROPion Unknown Active Zoloft Chest pain Severe Active 1PT had an adverse reaction HR went up to 250%27s Assessment and Plan Future Appointments Medications Bactrim 400 mg-80 mg oral tablet 2 tab, Oral, BID, # 40 tab, 0 Refill(s), Pharmacy: [facility], 168, cm, 11/17/22 13:46:00 EST, Height/Length Dosing, 210, kg, 11/17/22 13:46:00 EST, Weight Dosing Start Date: 11/17/22 Stop Date: 11/27/22 Status: Ordered furosemide 20 mg oral tablet 20 mg = 1 tab, Oral, Daily, # 90 tab, 4 Refill(s), Pharmacy: [facility], 168, cm, 11/17/22 13:46:00 EST, Height/Length Dosing, 210, kg, 11/17/22 13:46:00 EST, Weight Dosing Start Date: 07/08/23 Status: Ordered metoprolol succinate 50 mg oral tablet, extended release 50 mg = 1 tab, Oral, BID, # 180 tab, 4 Refill(s), Pharmacy: [facility], 168, cm, 11/17/22 13:46:00 EST, Height/Length Dosing, 210, kg, 11/17/22 13:46:00 EST, Weight Dosing Start Date: 06/24/23 Stop Date: 09/16/24 Status: Ordered Pyridium 200 mg oral tablet 200 mg = 1 tab, Oral, TID(PC), # 9 tab, 0 Refill(s), Pharmacy: [facility], 168, cm, 11/17/22 13:46:00 EST, [...] 08/22/22 Sex Male Patient Care team information Care Team Personnel Name: Bin Boyce MD Position: No Access Member Role: Primary Care Physician Address: Address: [facility] [address] [place], [place] [address] Care Team Related Persons Name: MASON GRAY Address: Home [address] [facility], [id number]
--- OUTSIDE RECORDS SUMMARY | 2023-12-17 18:16 | XMS_ITS | Continuity of Care Document ---
Author Name Unknown Organization [facility] Address [address] [place] [address] Care Team Providers Care Cytologist Name Role Phone [facility] Encounter [facility] Date(s): 09/18/22 - 12/09/[address] [address] Encounter Diagnosis Pain in left knee(Final) - Pain in right knee(Final) - Recurrent dislocation of patella, right knee(Final) - Discharge Disposition: Home or Self Care Attending Physician: Amira Hooks Admitting Physician: Amira Hooks Referring Physician: Amira Hooks Allergies, Adverse Reactions, Alerts Substance Reaction Severity Status adenosine 1 Rapid heart beat Severe Active gabapentin Unknown Active buPROPion Unknown Active Zoloft Chest pain Severe Active 1PT had an adverse reaction HR went up to 250%27s Medications Bactrim 400 mg-80 mg oral tablet 2 tab, Oral, BID, # 40 tab, 0 Refill(s), [id number], 168, cm, 11/17/22 13:46:00 EST, Height/Length Dosing, 210, kg, 11/17/22 13:46:00 EST, Weight Dosing Start Date: 11/17/22 Stop Date: 11/27/22 Status: Ordered furosemide 20 mg oral tablet 20 mg = 1 tab, Oral, Daily, # 90 tab, 4 Refill(s), [facility] Start Date: 04/23/22 Status: Ordered metoprolol succinate 50 mg oral tablet, extended release 50 mg = 1 tab, Oral, BID, # 60 tab, 11 Refill(s), Pharmacy: [id number] Start Date: 04/23/22 Status: Ordered Pyridium 200 mg oral tablet 200 mg = 1 tab, Oral, TID(PC), # 9 tab, 0 Refill(s), Pharmacy: [id number], 168, cm, 11/17/22 13:46:00 EST, [...] years: 15; entered on: 08/22/22 Sex Male Physical therapy Progress note * Erich Soto PT: PERFORM Event Display: Physical Therapy Progress Note Authored Date: [id number] *Referring??Diagnosis: Bilateral knee pain *Therapy Diagnosis: Bilateral knee sprain injuries Number of Sessions:2 Summary of Treatment: Knee mobility exercise education, patient education for aerobic exercise parameter, pain modulation technique education, education for bilateral patella mobilization technique *Reason for Discharge: Patient did not return for additional therapy. *Therapy Assessment: Bib was last seen on 10/29/2022 for this episode. At that time he was reporting significant improvement in general mobility and strength in bilateral knees. He had resolution of strain related symptoms and was pleased with the progress he was making. He was comfortable with independent management at her last session and canceled his 2 remaining sessions after the 10/29/2022 visit. He had made good progress towards his goals and likely did not require further physical therapy intervention. We will discharge from physical therapy for this episode today. *Goal Status: Short-term goals: Defer long-term goals nursing home goals: To be met in 8 weeks 1. Patient will be able to ambulate over variable terrain without assistive device with no increased knee pain, met 2. Patient able to ascend and descend stairs with no increased right knee pain, met 3. Patient able to transfer in and out of automobiles with no increased knee pain, met 4. Patient able to don footwear with no increased knee pain, met 5. Patient independent with lower extremity dynamic, exercise program, met *Discharge Plan:??Discharge from therapy today. Electronically Signed on 12/09/22 04:52 PM Erich Soto PT * Erich Soto PT: PERFORM, MODIFY Event Display: Physical Therapy Progress Note Authored Date: [id number] *Referring??Diagnosis: Bilateral knee pain *Therapy Diagnosis: Bilateral knee sprain injuries *Subjective: Received an injection in my right knee about a week after he got together, feels so much better. Patient??Case History: Bib returns with reports of improved knee mobility and weightbearing confidence in right lower extremity. He had injection 3 weeks ago and reports no significant distress following up. Pain:?Mild posterior right knee strain sensation, anterior left knee soreness. *Objective Measures and Interventions: CPT 48445: Therapeutic Exercise:?26? minutes Therapeutic exercise to promote improved joint stability, strength, endurance, and range of motion for functional ADL???s such as: walking Specific education/training provided: Home exercise program education/modification Static standing balance challenge exercise education Aerobic exercise parameter education Patient education for seated recumbent bike options for aerobic exercise and lower extremity strengthening *Patient Education: See above *Physical Therapy Assessment: Bib returns reporting significant improvement in right knee mobility and close chain functional capacity following an injection that he received 3 weeks ago. He was proactive with exercises and can appreciate improved tolerance to stair climbing and descending with only moderate discomfort in posterior knee region at endrange. We discussed positional modifications that he can make to reduce posterior capsule and hamstring strain with terminal extension, I anticipate this will resolve in time without issue. He will benefit from home exercise program modifications to maximize confidence with uneven terrain ambulation and coordination of right lower extremity for c lose chain functions. *Plan: ??cont per plan *Total Time: 30 min *Time In: 1444 *Time Out: 3054 This document was dictated utilizing voice recognition software and may contain inadvertent errors. Electronically Signed on 10/29/22 03:16 PM Erich Soto PT * Erich Soto PT: PERFORM, MODIFY Event Display: Physical Therapy Progress Note Authored Date: [id number] *Visit Type: Initial Evaluation Patient ID and date of checked:?? yes *Referring??Diagnosis: Bilateral knee pain *Therapy Diagnosis: Bilateral knee sprain injuries *Subjective: I slipped about a month ago coming out of my bathroom and injured both knees when I fell. Patient Case History:??Patient is a 51-year-old male who presents in physical therapy approximately4 weeks status post a fall injury at his home. He states while he was exiting his bathroom which she has a 6 inch step down he stepped into a pile of dog slobber with his right foot causing a sudden hyperextension of his right knee and generating a fall onto his left knee. He had notable pain through his left knee initially and states over the course of 2 weeks favoring the left knee he developedincreased right knee pain. He presents today with anterior left knee discomfort as well as global right knee pain with limitations in walking and close chain functions. He is hopeful PT can help, is concerned he tore something, and is a consultation with orthopedics scheduled in 2 weeks. 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 Household Members/Support Network: Supportive spouse Home Equipment: Occasional use of a straight cane. *Previous Level of Function: No significant difficulties with ADL mobility, no significant knee pain with ADL mobility *Current Level of Function:??Limited tolerance to close chain activities, decreased balance, decreased confidence with close chain functional movements. Pain: Location: Anterior left knee region, posterior/medial right knee region, anterior right knee region/quadriceptendon Nature: Occasional sharp pain, stiffness, soreness, right medial knee region tightness Behavior: ??Increased pain with weightbearing activities, increased pain with static sitting Severity: Patient rates pain occasionally 10/10, at best 2/10 Palpation:??Hypersensitivity and tenderness to palpation along right medial collateral region of knee, right medial hamstring group, bilateral quadricep tendon region Skin Inspection: wnl Edema: None noted Knee Joint Mobility: ROM/Strength: R AROM L AROM R PROM L PROM R Strength L Strength Knee Flex ??100 ??110 ??100 ??110 ??2 ??3 Knee Ext ??+5 ??+15 ??+5 ??+15 ??2 ??3 Knee Special Tests: Test Right Left Anterior Drawer Test Anterior Henny Test Apley Compression Test Bounce Home Test Leon Test Patellar Apprehension Test Patellar Grind Test Pivot Shift Test Posterior Drawer Test Posterior Henny Test Q-angle Test Thessaly Test ??unable ot perform Valgus Stress Test ??positive Varus Stress Test ??negative ??negative Upper Quadrant Screen: Gross within normal limits, patient is obese Lower Quadrant Screen: Bilateral ankle range of motion, bilateral hip range of motion within normallimits, gross strength bilateral hips and bilateral ankles are within functional limits. Balance: Static standing balance is good, static standing balance single limb bilaterally is poor, dynamic balance is poor both double limb and single limb. Posture Deviations/Comments: Patient unable to stand with right knee in full extension, favors right knee in standing with left pelvic shift Gait Deviations/Comments: Ambulating with wide base of support, increased hip external rotation, decreased stance time right lower extremity, decreased swing phase bilateral knee *Patient Education: Patient education for seated knee extension/flexion exercise, seated hip abduction in combination with knee extension flexion exercise, seated ankle tilting/tibial rotation exercise, patient education for graded loading progression to enhance right knee range of motion and strength. *Physical Therapy Assessment: Patient is a 51-year-old male presents to physical therapy approximately 4 weeks status post a fall after slipping in his home coming out of his bathroom. Patient has notable objective deficits including decreased bilateral knee strength, decreased right knee range of motion, significant tenderness and sensitivity across right medial knee structures as well as hamstring tendon groups, gait abnormalities, balance deficits, and pain consistent with likely sprain related injury to his right knee following a sudden hyperextension moment as well as impact injury to his left knee during the fall. Patient will benefit from physical therapy to address the above deficits and attempt to restore dynamic lower extremity strength and confidence with close chain activities. Patient will be seen an orthopedist in 2 more weeks, I am hopeful that he will begin to appreciatechanges before that with a implementation of home exercises. *Rehab Potential: Good?to reach the established goals *Functional Outcome Measure: FOM: Lower Extremity Functional Scale (LEFS) ? Score: 86% impairment ? Comments: *Short Term Goals: Defer to long-term goals *Geothermal Operating Engineer Goals: ?? To be met in 8 weeks 1. Patient able to ambulate over variable terrain without assistive device with no increased knee pain 2. Patient able to a send and descend stairs with no increased right knee pain 3. Patient able to transfer in and out of automobiles with no increased knee pain 4. Patient able to don closed with no increased knee pain 5. Patient independent with lower extremity dynamic home exercise program *Patient Goals: Regain strength and confidence in my knees *Frequency of Treatment: 1x/wk *Intensity of Treatment (minutes):?? 45 min *Duration of Treatment (days/weeks):?? 8 weeks *Planned Treatment Interventions: ??x CPT 57972: Therapeutic Exercise CPT 93504: Iontophoresis ??x CPT 02159: Therapeutic Activity CPT 07724: Electrical Stimulation (TENS/probe) ??x CPT 95887: Manual Therapy CPT G0283: Electrical Stimulation (unattended) ??x CPT 04874: Gait Training CPT 37363: Biofeedback ??x CPT 05588: Neuromuscular Re-education CPT 16045: Initial Orthotic Fit/Train CPT 03151: Self-Care/Home Management CPT 73154: Initial Prosthetic Train CPT 76165: Ultrasound *Discharge Plan: Upon achieving goals or maximal benefit of therapy services. *Procedure Documentation: CPT 87433: Low Complexity PT Evaluation:??30? minutes Physical Therapy Evaluation performed. History involves 1-2 personal factors and/or comorbidities. Examination of body system(s) includes 3 or more elements. Clinical presentation is stable. Clinical decision making is low. CPT 82473: Therapeutic Exercise:?20?? minutes Therapeutic exercise to promote improved joint stability, strength, endurance, and range of motion for functional ADL???s such as: walking, stair negotiation Specific education/training provided: Patient education for seated knee extension/flexion exercise, seated hip abduction in combination with knee extension flexion exercise, seated ankle tilting/tibial rotation exercise, patient education for graded loading progression to enhance right knee range of motion and strength. *Total Time: 50 min *Time In: 1050 *Time Out: 1140 This document was dictated utilizing voice recognition software and may contain inadvertent errors. Electronically Signed on 10/10/22 11:09 AM Erich Soto PT Reviewed by: Grisel Wayne Patient Care team information Personnel Name: Gracie [facility], Bin Moe MD Address: Address: [id number] [place] [address]
--- OUTSIDE RECORDS SUMMARY | 2023-12-17 18:16 | XMS_ITS | Continuity of Care Document ---
Author Name Unknown Organization [facility] Address [address] [place] [address] Care Team Providers Care Traction Power Engineer Name Role Phone [facility] Encounter [facility] Date(s): 08/22/22 - 08/23/[address] [address] Encounter Diagnosis Palpitations(Discharge Diagnosis) - 08/23/22 Palpitations(Final) - Unspecified atrial fibrillation(Final) - Atherosclerotic heart disease of [place] coronary artery without angina pectoris (Final) - Essential (primary) hypertension(Final) - Other correction (current) drug therapy(Final) - Discharge Disposition: Home or Self Care Attending Physician: Oliver Newton MD Admitting Physician: Oliver Newton MD Allergies, Adverse Reactions, Alerts Substance Reaction Severity Status adenosine 1 Rapid heart beat Severe Active gabapentin Unknown Active buPROPion Unknown Active Zoloft Chest pain Severe Active 1PT had an adverse reaction HR went up to 250%27s Functional Status 08/22/22 Family Member Travel History No recent t ravel Recent Travel History No recent travel Other exposure to Infectious Disease Non e Medications furosemide 20 mg oral tablet 20 mg = 1 tab, Oral, Daily, # 90 tab, 4 Refill(s), Pharmacy: [id number] Start Date: 04/23/22 Status: Ordered metoprolol succinate 50 mg oral tablet, extended release 50 mg = 1 tab, Oral, BID, # 60 tab, 11 Refill(s), Pharmacy: [id number] Start Date: 04/23/22 Status: Ordered [...] Tonsillectomy Completed Results Laboratory List Name Date Troponin-I 08/23/22 CBC w/ Diff 08/23/22 Comprehensive Metabolic Panel 08/23/22 Troponin-I 08/23/22 Automated Diff 08/22/22 Most recent to oldest [Reference Range]: 1 2 WBC [5.0-10.0 x10^3/mcL] 8.0 x10^3/mcL (08/23/22 12:02 AM) RBC [4.6-6.0 x10^6/mcL] 5.0 x10^6/mcL (08/23/22 12:02 AM) Neutro Auto [40.0-75.0 %] 66.7 % (08/23/22 12:02 AM) Lymph Auto [20.0-50.0 %] 22.6 % (08/23/22 12:02 AM) Drew Auto [2.0-15.0 %] 7.4 % (08/23/22 12:02 AM) Basophil Auto [0.0-1.0 %] 0.6 % (08/23/22 12:02 AM) BUN [7-18 mg/dL] 9 mg/dL (08/23/22 12:02 AM) Glucose Level [74-106 mg/dL] 106 mg/dL (08/23/22 12:02 AM) Potassium Level [3.5-5.1 mmol/L] 3.5 mmo l/L (08/23/22 12:02 AM) MCV [80.0-103.0 fL] 87.2 fL (08/23/22 12:02 AM) AST [15-37 unit/L] 16 unit/L (08/23/22 12:02 AM) ALT [14-59 unit/L] 30 unit/L (08/23/22 12:02 AM) MCHC [31.0-35.0 g/dL] 32.4 g/dL (08/23/22 12:02 AM) Troponin-I [0.0-76.2 pg/mL] 68.8 pg/mL (08/23/22 1:55 AM) 57.9 pg/mL (08/23/22 12:02 AM) Sodium Level [136-145 mmol/L] 140 mmol/L (08/23/22 12:02 AM) Hct [41.0-51.0 %] 43.5 % (08/23/22 AM) Calcium Level [8.5-10.1 mg/dL] 9.0 mg/dL (08/23/22 12:02 AM) Albumin Level [3.4-5.0 g/dL] 3.2 g/dL *LOW* (08/23/22 AM) Protein Total [6.4-8.2 g/dL] 7.2 g/dL (08/23/22 12:02 AM) MCH [26.0-32.0 pg] 28.3 pg (08/23/22 AM) Neutro Absolute 5.3 x10^3/mcL *NA* (08/23/22 12:02 AM) Bilirubin Total [0.2-1.0 mg/dL] 0.4 mg/d L (08/23/22:02 AM) Hgb [14.0-18.0 g/dL] 14.1 g/dL (08/23/22 12:02 AM) Alk Phos [46-146 unit/L] 69 unit/L (08/23/22 AM) Platelets [130-450 x10^3/mcL] 195 x10^3/ mcL (08/23/22 12:02 AM) CO2 [21-32 mmol/L] 29 mmol/L (08/23/22 12:02 AM) eGFR Non-AA [>=60] 89 (08/23/22 12:02 AM) eGFR AA [>=60] 89 (08/23/22 12:02 AM) Chloride Level [98-107 mmol/L] 104 mmol/ L (08/23/22 12:02 AM) RDW-CV [11.5-17.0 %] 13.7 % (08/23/22 12:02 AM) Imm Gran Auto [0.0-0.9 %] 0.4 % (08/23/22 12:02 AM) Creatinine Level [0.70-1.30 mg/dL] 1.01 mg/dL (08/23/22 12:02 AM) Anion Gap [8-16 mmol/L] 9 mmol/L (08/23/22 12:02 AM) Eos, Auto [1.0-6.0 %] 2.3 % (08/23/22 12:02 AM) Vital Signs Most recent to oldest [Reference Range]: 1 2 3 Temperature Temporal Artery [36-38 Deg C] 36.9 Deg C (08/22/22 11:22 PM) Peripheral Pulse Rate [60-100 bpm] 66 bpm (08/23/22 3:00 AM) 69 bpm (08/23/22 2:30 AM) 86 bpm (08/23/22 2:00 AM) Heart Rate Monitored [60-100 bpm] 68 bpm (08/23/22 3:00 AM) 66 bpm (08/23/22 2:30 AM) 76 bpm (08/23/22 2:00 AM) Respiratory Rate [12-24 br/min] 18 br/min (08/23/22 3:00 AM) 18 br/min (08/23/22 2:30 AM) 14 br/min (08/23/22 2:00 AM) Blood Pressure [90-140/60-90 mmHg] 140/96mmHg (08/23/22 1:00 AM) 148/108mmHg *HI* (08/23/22 12:00 AM) 161/88mmHg *HI* (08/22/22 11:22 PM) Weight Dosing 200.00 kg (08/22/22 11:46 PM) Weight Estimated 200.00 kg (08/22/22 11:22 PM) Height/Length Dosing 168.000 cm (08/22/22 11:46 PM) Height/Length Estimated 168.000 cm (08/22/22 11:22 PM) Social History Social History Type Response Smoking Status Smoking tobacco use: Former tobacco user;Former smokeless tobacco user, quit more than 30 days ago; Number of years: 15; entered on: 08/22/22 Sex Male Hospital Discharge Instructions Patient Education 08/23/2022 01:59:25 Palpitations, Ufal-iq-Ptwm Palpitations Palpitations are feelings that your heartbeat is not normal. Your heartbeat may feel like it is: ??? Uneven. ??? Faster than normal. ??? Fluttering. ??? Skipping a beat. This is usually not a serious problem. In some cases, you may need tests to rule out any serious problems. Follow these instructions at home: Pay attention to any changes in your condition. Take these actions to help manage your symptoms: Eating and drinking ??? Avoid: ??? Coffee, tea, soft drinks, and energy drinks. ??? Chocolate. ??? Alcohol. ??? Diet pills. Lifestyle ??? Try to lower your stress. These things can help you relax: ??? Yoga. ??? Deep breathing and meditation. ??? Exercise. ??? Using words and images to create positive thoughts (guided imagery). ??? Using your mind to control things in your body (biofeedback). ??? Do not use drugs. ??? Get plenty of rest and sleep. Keep a regular bed time. General instructions ??? Take [id number] and prescription medicines only as told by your doctor. ??? Do not use any products that contain nicotine or tobacco, such as cigarettes and e-cigarettes. If you need help quitting, ask your doctor. ??? Keep all follow-up visits as told by your doctor. This is important. You may need more tests ifpalpitations do not go away or get worse. Contact a doctor if: ??? Your symptoms last more than 24 hours. ??? Your symptoms occur more often. Get help right away if you: ??? Have chest pain. ??? Feel short of breath. ??? Have a very bad headache. ??? Feel dizzy. ??? Pass out (faint). Summary ??? Palpitations are feelings that your heartbeat is uneven or faster than normal. It may feel likeyour heart is fluttering or skipping a beat. ??? Avoid food and drinks that may cause palpitations. These include caffeine, chocolate, and alcohol. ??? Try to lower your stress. Do not smoke or use drugs. ??? Get help right away if you faint or have chest pain, shortness of breath, a severe headache, ordizziness. This information is not intended to replace advice given to you by your health care provider. Make sure you discuss any questions you have with your health care provider. Document Revised: 02/22/2022 Document Reviewed: 12/09/2018 Else[employer] Patient Education ?? 2021 [employer] Follow Up Care 08/22/2022 23:22:33 With:Follow up with primary care provider Address: When: only if needed Patient Care team information Personnel Name: Gracie Bin MOTA MD Address: Address: [address] [address]- [place]
--- OUTSIDE RECORDS SUMMARY | 2023-12-17 18:16 | XMS_ITS | Continuity of Care Document ---
Author Name Unknown Organization [facility] Address [address] [place] [address] Care Team Providers Care Book Packer Name Role Phone Primeau IPHC, Bin Moe Primary Care Physician Encounter [facility] Date(s): 09/30/23 - 09/30/23 [facility] [address] [place] [address] Encounter Diagnosis Atrial fibrillation(Discharge Diagnosis) - 09/30/23 Discharge Disposition: Home or Self Care Attending Physician: Suresh Roth MD Allergies, Adverse Reactions, Alerts Substance Reaction Severity Status adenosine 1 Rapid heart beat Severe Active gabapentin Unknown Active buPROPion Unknown Active Zoloft Chest pain Severe Active 1PT had an adverse reaction HR went up to 250%27s Assessment and Plan Future Appointments Future Scheduled Tests Laboratory* Basic Metabolic Panel 10/10/23 Medications aspirin 81 mg oral capsule 81 mg = 1 cap, Oral, Daily, do not exceed 48 capsules in 24 hours, # 30 cap, 0 Refill(s) Start Date: 09/30/23 Status: Ordered Bactrim 400 mg-80 mg oral tablet 2 tab, Oral, BID, # 40 tab, 0 Refill(s), Pharmacy: [id number], 168, cm, 11/17/22 13:46:00 EST, Height/Length Dosing, 210, kg, 11/17/22 13:46:00 EST, Weight Dosing Start Date: 11/17/22 Stop Date: 11/27/22 Status: Ordered clonazePAM 1 mg oral tablet [...] Refill(s) Start Date: 09/30/23 Status: Ordered lamoTRIgine 50 mg oral tablet, disintegrating 50 mg = 1 tab, Oral, Daily, # 30 tab, 0 Refill(s) Start Date: 09/30/23 Status: Ordered lisinopril 2.5 mg oral tablet 2.5 mg = 1 tab, Oral, Daily, # 30 tab, 0 Refill(s) Start Date: 09/30/23 Status: Ordered metoprolol succinate 50 mg oral tablet, extended release 50 mg = 1 tab, Oral, BID, # 180 tab, 4 Refill(s), Pharmacy: [facility], 168, cm, 11/17/22 13:46:00 EST, Height/Length Dosing, 210, kg, 11/17/22 13:46:00 EST, Weight Dosing Start Date: 06/24/23 Stop Date: 09/16/24 Status: Ordered Pyridium 200 mg oral tablet 200 mg = 1 tab, Oral, TID(PC), # 9 tab, 0 Refill(s), Pharmacy: [id number], 168, cm, 11/17/22 13:46:00 EST, Height/Length Dosing, 210, kg, 11/17/22 13:46:00 EST, Weight Dosing Start Date: 11/17/22 Stop Date: 11/20/22 Status: Ordered torsemide 40 mg oral tablet 40 mg = 1 tab, Oral, Daily, # 90 tab, 4 Refill(s), Pharmacy: [facility], 167.64, cm, 09/30/23 13:19:00 EST, Height, 206.6, [...] Cardiac catheterization 2 01/10/21 Completed Tonsillectomy Completed Vital Signs Most recent to oldest [Reference Range]: 1 Peripheral Pulse Rate [60-100 bpm] 66 bp m (09/30/23 1:19 PM) Blood Pressure [90-140/60-90 mmHg] 140/7 9mmHg (09/30/23 1:19 PM) Mean Arterial Pressure, Cuff [70-110 mmH g] 99 mmHg (09/30/23 1:19 PM) Weight 206.60 kg (09/30/23 1:19 PM) Weight Measured (lbs) 455.474 lb (09/30/23 1:19 PM) Weight Dosing 206.600 kg (09/30/23 1:19 PM) Height 167.64 cm (09/30/23 1:19 PM) Height/Length Measured (inches) 66 inch (09/30/23 1:19 PM) BSA Measured 3.1 m2 (09/30/23 1:19 PM) Body Mass Index 73.51 kg/m2 (09/30/23 1:19 PM) Social History Social History Type Response Smoking Status Smoking tobacco use: Former tobacco user;Former smokeless tobacco user, quit more than 30 days ago; Number of years: 15; entered on: 08/22/22 Sex Male Cardiology * Marissa Hamilton: PERFORM Event Display: Cardiac Services Authored Date: [id number] Cardiac catheterization study * Marissa Hamilton: PERFORM Event Display: Power Distribution Engineer Authored Date: [id number] Physician Outpatient Note * Suresh Roth MD: PERFORM Event Display: Office Clinic Note Physician Authored Date: [id number] KAELA GRAY :1970 Age:52 years Sex:Male Visit Date:09/30/2023 Primary Care Physician: Gracie SVETLANA, Bin Moe MD History of Present Illness Cardiac Complaints 1. CAD- NSTEMI 2017, EMMY OM1. 2. SVT 3. Atrial fibrillation- Ablation 06/2020, repeat ablation 01/2021 ?? This is a 52 year old man who last saw Dr. Culver in April 2022 for routine cardiology follow up. He saw EP in November 2021, his Amiodarone was decreased to 200mg 4 days a week. By the end of Dec 2021,his??use had stopped completely.??He had been doing well at the time of his visit, and had no cardiac complaints.?? He is here today for routine cardiology follow up. ?? He is accompanied by his Autumn. ??He has been without chest pain, orthopnea, PND, palpitations,syncope. ??He does have lower extremity edema which is been going on for about a year. ?? We about his ablation which was accompanied by??perforation and hemopericardium which required a drain; this was a painful process, but he was well treated??and??remains a big admirer of Dr. Escobar,as am I. ?? We spent a fair bit of time talking about diuresis. ??He is taking 20 mg of Lasix which is essentially placebo??dose.?? He weighs 450 pounds but does not have access to a scale??that can give him accurate weights.?? I think he would be very much to his advantage to invest in a scale, but it would be quite expensive??and if we can get insurance to help with that??we certainly should. ?? He does not have nocturia because he spends his night sleeping in a recliner with CPAP.?? He is not exercising much due to a bad right knee. Review of Systems A complete review of systems is negative other than as noted in the history of present illness. Physical Exam Vitals & Measurements HR:??66??(Peripheral)?? BP:??140/79?? SpO2:??98%?? HT:??167.64??cm?? WT:??206.60??kg?? BMI:??73.51?? BSA:??3.1?? HEENT: Normocephalic, atraumatic Respirations: Clear to auscultation bilaterally with no wheezes rubs or rhonchi Cardiac: Regular rate and rhythm, normal S1, S2, no murmurs gallops or rubs Abdomen: Nontender nondistended normal active bowel sounds Extremities: 2+ dorsalis pedis pulses bilaterally with no significant edema Medical Decision Making Data Reviewed: Echo:??February 12, 2021. ??LVEF 60-65%. ??Normal size. ??Mild concentric LVH. ??E/E primed average 7.9. ??Atrial fibrillation. ??Right ventricle mildly dilated, normal function. ??Left atrium mildly dilated, 38. ??Right atrium mildly dilated. ??Trivial TR. ??Pulmonary pressure 25-35 mmHg. ??Small circumferential pericardial effusion. ??Moderate left pleural effusion. ??IVC mildly dilated with respirophasic change right atrial pressure estimated 5-10 mmHg. Stress: March 14, 2019. ??[place]. ??Moderate size severely intense fixed inferolateral defect. ??LVEF 50%. ??Minimal ischemia. LHC:??January 16, 2021. ??[place]. ??Successful placement of pericardial drain for pre tamponade physiology. July 13, 2017. ??[place]. ??Left main: Normal. ??LAD normal. ??LCx: 85% proximal OM 1. ??Thrombus. ??Large. ??RCA normal. ??[place] normal. [place] EMMY x1???OM1. Event monitor: February 22, 2021. ??11 days 4 hours. ??ZIO monitor. ??[place]. ??Baseline rhythm sinus, average rate 57 bpm, range 41-95 bpm. ??No pauses greater than or equal to 3 seconds. ??No AV block. ??Rare PAC. ??No SVT. ??Less than 1% burden PVC. ??No NSVT. August 02, 2020. ??13 days 21 hours. ??[place]. ??Baseline rhythm sinus, average 64 bpm, [id number] bpm. ??No pauses. ??Rare single PAC. ??19 runs of SVT. ??Fastest 160 bpm, longest 13 beat duration. ??Less than 1% PVC. ??No NSVT. ??Symptoms: Dyspnea chest pain pressure dizziness lightheadedness corresponded to sinus rhythm 64-92 bpm. EK09/30/2023: Sinus rhythm at 63 bpm.?? Axes and intervals within normal limits. ??No evidence of ischemia or prior infarct. ?? 52-year-old gentleman??with coronary disease and heart failure with preserved ejection fraction. ?? Coronary artery disease:??No signs or symptoms of ischemia.?? It has been??about??6 years since he had PCI??to OM1, and he remains without ischemic symptoms. ??EKG is reassuring. ??He is on appropriate medications. ?? SVT/atrial fibrillation:??He has had [address] Escobar. ??He remains in sinus rhythm. ??He wears an Apple Watch and has seen no arrhythmia. ??He says sometimes he feels his heart fluttering??after eating, but this does not correlate with any arrhythmias on his Apple Watch. ?? Heart failure with preserved ejection fraction: I have not started??Entresto and Jardiance yet,??but I will have him see heart failure clinic in a few months, and this conversation should occur at that time.?? Today we focused fairly extensively on diuretics.?I am??stopping his placebo dose of Lasix, switching over to torsemide 40 mg. ??He knows what to expect with this.?? I would love for this to be weight-based. ??If in fact he currently weighs 450 pounds, estimated that he was carrying on10 pounds of excess fluid weight so his dry weight would be around 440.?? This would mean on days that he weighs 441 or more, he should take torsemide??and on days that he weighs 440 or less, he would not take torsemide. ??Since he does not have access to a scale,??we will simply go based on exam findings, but I think he would very much be to his advantage to get a scale,??and this would be fairly expensive given his weight, and we are hoping insurance can help with that.?? I did review with Autumn and with Bib how to check for pitting. ?? We will check a Chem-7 in about 10 days; both he and Autumn agreed to make sure that they come in forlab work. ?? I will plan to see Bib back here in about a year, but we will have him seen in heart failure clinic in just about 3 months with Suzy. ??It was genuine pleasure to meet Bib and Autumn.?? I am glad to see he is doing well.?? Clinic Assessment/Plan Atrial fibrillation??I48.91 Actions: DISCONTINUED - furosemide, 20 mg = 1 tab, Oral, Daily, # 90 tab, 4 Refill(s), Pharmacy: [facility], 168, cm, 11/17/22 13:46:00 EST, Height/Length Dosing, 210, kg, 11/17/22 13:46:00 EST, Weight Dosing ORDERED - torsemide, 40 mg = 1 tab, Oral, Daily, # 90 tab, 4 Refill(s), Pharmacy: [facility], 167.64, cm, 09/30/23 13:19:00 EST, Height, 206.6, kg, 09/30/23 13:30:00 EST, Weight Dosing COMPLETED - [id number] Office/Outpatient Visit - Established Patient, Level 4 (30-39 min)., 09/30/23 13:05:00 EST, Atrial fibrillation FUTURE - Basic Metabolic Panel, Blood, Routine, 10/10/23, Once, Lab Collect, Atrial fibrillation (HFpEF) heart failure with preserved ejection fraction, Order for future visit COMPLETED - CV ECG Clinic, 09/30/23 13:11:00 EST, Routine, Reason: Other (please specify), Stop date and time 09/30/23 13:11:00 EST, Atrial fibrillation, ORD_SET_REQ_DT_RANGE, [facility] Internal Person Id FUTURE - Follow-Up Appointment Request [facility], *Est. 09/30/24 +/- 28 days, Future Order, In [facility] ?? Problem List/Past Medical History Ongoing Atrial fibrillation Coronary arteriosclerosis Epigastric pain Hypertensive disorder Morbid obesity Nocturnal dyspnea Obstructive sleep apnea syndrome Supraventricular tachycardia Historical No qualifying data Procedure/Surgical History ???Cardiac ablation using fluoroscopy guidance (01/11/2021)???Cardiac catheterization (01/11/2021)???Tonsillectomy Medications What How Much When Why Instructions New torsemide (torsemide 40 mg oral tablet) 1 tab Oral (given by mouth) Every day Atrial fibrillation Refills: [address] [facility] Unchanged apixaban (Eliquis 5 mg oral tablet) 1 tab Oral (given by mouth) 2 times a day Unchanged aspirin (aspirin 81 mg oral capsule) 1 Capsules Oral (given by mouth) Every day do not exceed 48 capsules in 24 hours ?? Unchanged clonazePAM (clonazePAM 1 mg oral tablet) 1 tab Oral (given by mouth) 3 times a day Unchanged dulaglutide (Trulicity Pen 3 mg/ 0.5 mL subcutaneous solution) 0.5 Milliliters Subcutaneous (under the skin) Every week rotate injection sites ?? Unchanged lamoTRIgine (lamoTRIgine 200 mg oral tablet) 1 tab Oral (given by mouth) 2 times a day Unchanged lamoTRIgine (lamoTRIgine 50 mg oral tablet, disintegrating) 1 tab Oral (given by mouth) Every day Unchanged lisinopril (lisinopril 2.5 mg oral tablet) 1 tab Oral (given by mouth) Every day Unchanged metoprolol (metoprolol succinate 50 mg oral tablet, extended release) 1 tab Oral (given by mouth) 2 times a day Afib Duration: 90 Days Unchanged phenazopyridine (Pyridium 200 mg oral tablet) 1 tab Oral (given by mouth) 3 times a day after meals Duration: 3 Days Unchanged sulfamethoxazole-trimethoprim (Bactrim 400 mg-80 mg oral tablet) 2 tab Oral (given by mouth) 2 times a day Duration: [address] [facility]: [address] [place] [address] [phone] ?? What How Much When WhyComments Stop Taking furosemide (furosemide 20 mg oral tablet) 1 tab Oral (given by mouth) Every day Edema Afib Allergies Zoloft??(Chest pain) adenosine??(Rapid heart beat) buPROPion gabapentin Social History Electronic Cigarette/Vaping Electronic Cigarette Use: Former use, quit more than 90 days ago. Tobacco Former tobacco user Tobacco Use:. 15 year(s). Former smokeless tobacco user, quit more than 30 daysago Smokeless Tobacco use:. Family History Diabetes mellitus: Brother. Hyperlipidemia: Father and Brother. Hypertensive disorder: Father and Brother. Myocardial infarction: Father and Brother. Electronically Signed on 09/30/23 02:10 PM Suresh Roth MD Patient Care team information Care Team Personnel Name: Bin Boyce MD Position: No Access Member Role: Primary Care Physician Address: Address: [address] [address]- Care Team Related Persons Name: AUTUMN GRAY Address: Home [address] [facility], [id number]
--- OUTSIDE RECORDS SUMMARY | 2023-12-17 18:16 | XMS_ITS | Continuity of Care Document ---
Author Name Unknown Organization [facility] Address [address] [place] [address] Care Team Providers Care Steam Roller Operator Name Role Phone Primeau IPHC, Bin Moe Primary Care Physician Encounter [facility] [id number] Date(s): 10/08/23 - 10/08/23 [facility] [address] [place] [address] Discharge Disposition: Home Allergies, Adverse Reactions, Alerts [...] BID, # 180 tab, 4 Refill(s), Pharmacy: [facility], 168, cm, 11/17/22 13:46:00 EST, Height/Length Dosing, 210, kg, 11/17/22 13:46:00 EST, Weight Dosing Start Date: 06/24/23 Stop Date: 09/16/24 Status: Ordered Pyridium 200 mg oral tablet 200 mg = 1 tab, Oral, TID(PC), # 9 tab, 0 Refill(s), Pharmacy: [facility], 168, cm, 11/17/22 13:46:00 EST, Height/Length Dosing, 210, kg, 11/17/22 13:46:00 EST, Weight Dosing Start Date: 11/17/22 Stop Date: 11/20/22 Status: Ordered torsemide 40 mg oral tablet 40 mg = 1 tab, Oral, Daily, # 90 tab, 4 Refill(s), Pharmacy: [facility], 167.64, cm, 09/30/23 13:19:00 EST, [...] tachycardia Confirmed 11/28/20 Active 1CPAP 7-3 cm [place]/Adapt Procedures Procedure Date Related Diagnosis Body Site [...] Member Role: Primary Care Physician Address: Address: [address] [address]- Care Team Related Persons Name: MASON GRAY Address: Home [address] [place], [id number]
--- OUTSIDE RECORDS SUMMARY | 2023-12-17 18:16 | XMS_ITS | Continuity of Care Document ---
Author Name Unknown Organization [facility] Address [address] [place] [address] Care Team Providers Care Resort Manager Name Role Phone Primeau Bin MOTA Primary Care Physician Encounter [facility] [id number] Date(s): 12/03/23 - 12/03/[address] [address] Discharge Disposition: Home or Self Care Attending Physician: Joan Castro MD Admitting Physician: Joan Castro MD Referring Physician: Joan Castro MD Allergies, Adverse Reactions, Alerts Substance Reaction [...] BID, # 180 tab, 4 Refill(s), Pharmacy: [id number], 168, cm, 11/17/22 13:46:00 EST, Height/Length Dosing, 210, kg, 11/17/22 13:46:00 EST, Weight Dosing Start Date: 06/24/23 Stop Date: 09/16/24 Status: Ordered Potassium Chloride (Srs-Kgsr-Gwo 10) 10 mEq oral tablet, extended release 4 tabs, Oral, Daily, # 360 tab, 3 Refill(s), Pharmacy: [facility] [address], 167.64, cm, 10/06/23 12:44:00 EST, Height, 204.12, kg, 10/06/23 12:54:00 EST, Weight Dosing Start Date: 10/31/23 Status: Ordered Pyridium 200 mg oral tablet 200 mg = 1 tab, Oral, TID(PC), # 9 tab, 0 Refill(s), Pharmacy: [facility] [address], 168, cm, 11/17/22 13:46:00 EST, Height/Length Dosing, 210, kg, 11/17/22 13:46:00 EST, Weight Dosing Start Date: 11/17/22 Stop Date: 11/20/22 Status: Ordered torsemide 40 mg oral tablet 40 mg = 1 tab, Oral, Daily, # 90 tab, 4 Refill(s), Pharmacy: [facility] [address], 167.64, cm, 09/30/23 13:19:00 EST, Height, 206.6, [...] disorder Confirmed 11/28/20 Active Nocturnal dyspnea Confirmed 10/2/20 Active Obstructive sleep apnea syndrome 1 Confirmed Active Supraventricular tachycardia Confirmed 11/28/20 Active 1CPAP 7-3 cm [place]/Adapt Procedures Procedure Date Related Diagnosis Body Site [...] Physician Member Role: Informed Provider Address: Address: [address] [place] [address]- Name: Bin Boyce MD Position: No Access Member Role: Primary Care Physician Address: Address: [address] Care Team Related Persons Name: MASON GRAY Address: Home [address] [facility], [id number]
--- OUTSIDE RECORDS SUMMARY | 2023-12-17 18:16 | XMS_ITS | Continuity of Care Document ---
Author Name Unknown Organization [facility] Address [address] [place] [address] Care Team Providers Care Molder Hand Name Role Phone Primeau Bin MOTA Primary Care Physician Encounter [facility] [id number] Date(s): 12/08/23 - 12/08/[address] [address] Discharge Disposition: Home or Self Care Attending [...] BID, # 180 tab, 4 Refill(s), Pharmacy: [facility] [id number], 168, cm, 11/17/22 13:46:00 EST, Height/Length Dosing, 210, kg, 11/17/22 13:46:00 EST, Weight Dosing Start Date: 06/24/23 Stop Date: 09/16/24 Status: Ordered Potassium Chloride (Doi-Jxeh-Hsz 10) 10 mEq oral tablet, extended release 4 tabs, Oral, Daily, # 360 tab, 3 Refill(s), Pharmacy: [facility] [address], 167.64, cm, 10/06/23 12:44:00 EST, Height, 204.12, kg, 10/06/23 12:54:00 EST, Weight Dosing Start Date: 10/31/23 Status: Ordered Pyridium 200 mg oral tablet 200 mg = 1 tab, Oral, TID(PC), # 9 tab, 0 Refill(s), Pharmacy: [facility] [address], 168, cm, 11/17/22 13:46:00 EST, Height/Length Dosing, 210, kg, 11/17/22 13:46:00 EST, Weight Dosing Start Date: 11/17/22 Stop Date: 11/20/22 Status: Ordered torsemide 40 mg oral tablet 40 mg = 1 tab, Oral, Daily, # 90 tab, 4 Refill(s), Pharmacy: [facility] [address], 167.64, cm, 09/30/23 13:19:00 EST, Height, 206.6, [...] tachycardia Confirmed 11/28/20 Active 1CPAP 7-3 cm [place]/Adapt Procedures Procedure Date Related Diagnosis Body Site [...] Physician Member Role: Informed Provider Address: Address: [address] [place] [address]- Name: Bin Boyce MD Position: No Access Member Role: Primary Care Physician Address: Address: [address] Care Team Related Persons Name: MASON GRAY Address: Home [address] [facility], [id number]
--- OUTSIDE RECORDS SUMMARY | 2023-12-17 18:17 | XMS_ITS | Continuity of Care Document ---
Author Name Unknown Organization [facility] Address [address] [place] [address] Care Team Providers Care Group Exercise Class Instructor Name Role Phone Primeau Bin MOTA Primary Care Physician Encounter [facility] [id number] Date(s): 10/29/23 - 10/29/[address] [address] Discharge Disposition: Home or Self Care Attending Physician: Suresh Roth MD Admitting Physician: Suresh Roth MD Referring Physician: Suresh Roth MD Allergies, Adverse Reactions, Alerts Substance Reaction Severity Status adenosine 1 Rapid heart beat Severe Active gabapentin Unknown Active buPROPion Unknown Active Zoloft Chest pain Severe Active 1PT had an adverse reaction HR went up to 250%27s Assessment and Plan Future Appointments Medications aspirin 81 mg oral capsule 81 [...] BID, # 180 tab, 4 Refill(s), Pharmacy: [facility], 168, cm, 11/17/22 13:46:00 EST, Height/Length Dosing, 210, kg, 11/17/22 13:46:00 EST, Weight Dosing Start Date: 06/24/23 Stop Date: 09/16/24 Status: Ordered Pyridium 200 mg oral tablet 200 mg = 1 tab, Oral, TID(PC), # 9 tab, 0 Refill(s), Pharmacy: [facility], 168, cm, 11/17/22 13:46:00 EST, Height/Length Dosing, 210, kg, 11/17/22 13:46:00 EST, Weight Dosing Start Date: 11/17/22 Stop Date: 11/20/22 Status: Ordered torsemide 40 mg oral tablet 40 mg = 1 tab, Oral, Daily, # 90 tab, 4 Refill(s), Pharmacy: [facility], 167.64, cm, 09/30/23 13:19:00 EST, [...] tachycardia Confirmed 11/28/20 Active 1CPAP 7-3 cm [place]/Adapt Procedures Procedure Date Related Diagnosis Body Site Status Cardiac ablation using fluor oscopy guidance 1 01/10/21 Completed Cardiac catheterization 2 01/10/21 Completed Tonsillectomy Completed Results Laboratory List Name Date Basic Metabolic Panel (BMP) 10/29/23 Most recent to oldest [Reference Range]: 1 BUN [7-18 mg/dL] 10 mg/dL (10/29/23 1:14 PM) Glucose Level [74-106 mg/dL] 129 mg/dL *HI* (10/29/23 1:14 PM) Potassium Level [3.5-5.1 mmol/L] 2.9 mmo l/L *LOW* (10/29/23 1:14 PM) Sodium Level [136-145 mmol/L] 137 mmol/L (10/29/23 1:14 PM) Calcium Level [8.5-10.1 mg/dL] 9.3 mg/dL (10/29/23 1:14 PM) CO2 [21-32 mmol/L] 32 mmol/L (10/29/23 1:14 PM) eGFR Non-AA [>=60] 98 (10/29/23 1:14 PM) eGFR AA [>=60] 98 (10/29/23 1:14 PM) Chloride Level [98-107 mmol/L] 97 mmol/L *LOW* (10/29/23 1:14 PM) Creatinine Level [0.70-1.30 mg/dL] 0.93 mg/dL (10/29/23 1:14 PM) Social History Social History Type Response Smoking Status Smoking tobacco use: Former tobacco user;Former smokeless tobacco user, quit more than 30 days ago; Number of years: 15; entered on: 10/06/23 Sex Male Patient Care team information Care Team Personnel Name: Bin Boyce MD Position: No Access Member Role: Primary Care Physician Address: Address: [address] [address]- Care Team Related Persons Name: MASON GRAY Address: Home [address] [place], [id number]
--- OUTSIDE RECORDS SUMMARY | 2023-12-17 18:17 | XMS_ITS | Continuity of Care Document ---
Author Name Unknown Organization [facility] f or Sleep Disorders Address [address] [place] [address] Care Team Providers Care Medical Operations Supervisor Name Role Phone [facility], Severo Moe Primary Care Physician [facility] Date(s): 10/06/23 - 10/06/23 [facility] [address] [place] [address] Encounter Diagnosis Obstructive sleep apnea syndrome(Discharge Diagnosis) - 10/06/23 Discharge Disposition: Home or Self Care Attending Physician: Bernarda Aguilar QUALITY ASSURANCE/R&D LAB TECHNICIAN Allergies, Adverse Reactions, Alerts Substance Reaction Severity [...] BID, # 180 tab, 4 Refill(s), Pharmacy: [id number], 168, cm, 11/17/22 13:46:00 EST, Height/Length Dosing, 210, kg, 11/17/22 13:46:00 EST, Weight Dosing Start Date: 06/24/23 Stop Date: 09/16/24 Status: Ordered Pyridium 200 mg oral tablet 200 mg = 1 tab, Oral, TID(PC), # 9 tab, 0 Refill(s), Pharmacy: [id number], 168, cm, 11/17/22 13:46:00 EST, Height/Length Dosing, 210, kg, 11/17/22 13:46:00 EST, Weight Dosing Start Date: 11/17/22 Stop Date: 11/20/22 Status: Ordered torsemide 40 mg oral tablet 40 mg = 1 tab, Oral, Daily, # 90 tab, 4 Refill(s), Pharmacy: [facility], 167.64, cm, 09/30/23 13:19:00 EST, [...] Range]: 1 Peripheral Pulse Rate [60-100 bpm] 84 bp m (10/06/23 12:44 PM) Blood Pressure [90-140/60-90 mmHg] 128/7 6mmHg (10/06/23 12:44 PM) Mean Arterial Pressure, Cuff [70-110 mmH g] 93 mmHg (10/06/23 12:44 PM) Weight 204.12 kg (10/06/23 12:44 PM) Weight Measured (lbs) 450.007 lb (10/06/23 12:44 PM) Weight Dosing 204.120 kg (10/06/23 12:44 PM) Height 167.64 cm (10/06/23 12:44 PM) Height/Length Measured (inches) 66 inch (10/06/23 12:44 PM) BSA Measured 3.08 m2 (10/06/23 12:44 PM) Body Mass Index 72.63 kg/m2 (10/06/23 12:44 PM) Social History Social History Type Response Smoking Status Smoking tobacco use: Former tobacco user;Former smokeless tobacco user, quit more than 30 days ago; Number of years: 15; entered on: 10/06/23 Sex Male Polysomnography (sleep) study * Jean Pastor M: PERFORM Event Display: Sleep Study Authored Date: [id number] Progress note * Lily Landon R: PERFORM Event Display: Progress Note - Physician Authored Date: [id number] Physician Outpatient Note * Bernarda Aguilar QUALITY ASSURANCE/R&D LAB TECHNICIAN: PERFORM Event Display: Office Clinic Note Physician Authored Date: [id number] KAELA AGUILAR :1970 Age:52 years Sex:Male Visit Date:10/06/2023 Primary Care Physician: [facility], Severo Moe MD Chief Complaint 450 History of Present Illness Kaela Aguilar has a visit for PILAR follow-up. ?? Kaela was seen by me on 03/04/2022. He has a medical history to include CAD (s/p NSTEMI 2016), SVT (s/p cardioversion), a-fib, HTN and morbid obesity. ?? He noted symptoms of mild snoring, nocturnal gasping, and fatigue. ?? Polysomnogram 09/16/2020 (BMI 60.76). Sleep efficiency was 79%, AHI 72.7/hr, RDI 73.4/hr, REM AHI 68.2/hr, REM RDI 68.2/hr, supine AHI 73/hr, right lateral AHI N/A, left lateral AHI N/A, sp02 mike 67%, 51 minutes were spent at a saturation <88%, arousal index 44/hr, PLMi 0/hr, PLM arousal index0/hr. EKG showed frequent PVC's and PAC's. ?? Last visit he was using CPAP??6-13 cm with nasal pillows and a residual AHI of 6/hr. I set CPAP to 7-13 cm. ?? Bib tells me he is using his CPAP every night but he was hoping to get a new machine because he heard that his replaced CPAP machine is on the recall list again. He says he wakes every morning with nasal and sinus congestion. ?? ESS today 12/03 COMPLIANCE DATA REVIEWED WITH PATIENT: Dates 09/06/23-10/05/23, Used 30/30 nights, average use 8??hrs and 53??minutes. Mean pressure 7.7 cm, 90th percentile pressure 9 cm, time in large air leak 0.5 minutes, AHI 2.4/hr. Physical Exam Vitals & Measurements HR:??84??(Peripheral)?? BP:??128/76?? SpO2:??96%?? HT:??167.64??cm?? WT:??204.12??kg?? BMI:??72.63?? BSA:??3.08?? N/A Clinic Assessment/Plan 1.??Obstructive sleep apnea syndrome??G47.33 Severe PILAR with an AHI of 72.7/hr and sp02 mike of 67%. He has been using CPAP 7-13 cm. He has excellent compliance and reduction in AHI. He benefits from CPAP and can't sleep without it. Unfortunately he recently found out that his replaced CPAP is again being recalled and he was told that it would not be replaced. His CPAP was issued in 10/12/2020 so his insurance will not likely replace it Prerna let he and his Autumn know this but I am ordering a new CPAP set at 7-13 cm through [facility]. He is aware of the insurance compliance requirements and follow-up that will be needed if he doesget a new CPAP. I discussed other options like buying a new one online or getting one from a friendwho may not be using theirs. He asked about the [facility] and??I let him know he was not a candidate.??If he does not get a new CPAP I will see him back in one year. He has significant daily sinus congestion despite adjusting humidity, using saline flushes and Flonase. I suggested he turn the humidity up to highest setting without running out of water.??He is asked to call our office for any sleeprelated questions or concerns. I provided greater than 30 minutes in the care of this patient, more than half the time was spent in [id number] counseling. Additional Actions: DISCONTINUED - sulfamethoxazole-trimethoprim, 2 tab, Oral, BID, # 40 tab, 0 Refill(s), Pharmacy: [id number], 168, cm, 11/17/22 13:46:00 EST, Height/Length Dosing, 210, kg, 11/17/22 13:46:00 EST, Weight Dosing Problem List/Past Medical History Ongoing Atrial fibrillation Coronary arteriosclerosis Epigastric pain Hypertensive disorder Morbid obesity Nocturnal dyspnea Obstructive sleep apnea syndrome Supraventricular tachycardia Historical No qualifying data Procedure/Surgical History ???Cardiac ablation using fluoroscopy guidance (01/11/2021)???Cardiac catheterization (01/11/2021)???Tonsillectomy Medications What How Much When Why Instructions Unchanged apixaban (Eliquis 5 mg oral tablet) 1 tab Oral (given by mouth) 2 times a day Contact prescribing physician if questions or concerns ?? Unchanged aspirin (aspirin 81 mg oral capsule) 1 Capsules Oral (given by mouth) Every day do not exceed 48 capsules in 24 hours Contact prescribing physician if questions or concerns ?? Unchanged clonazePAM (clonazePAM 1 mg oral tablet) 1 tab Oral (given by mouth) 3 times a day Contact prescribing physician if questions or concerns ?? Unchanged dulaglutide (Trulicity Pen 3 mg/ 0.5 mL subcutaneous solution) 0.5 Milliliters Subcutaneous (under the skin) Every week rotate injection sites Contact prescribing physician if questions or concerns ?? Unchanged lamoTRIgine (lamoTRIgine 200 mg oral tablet) 1 tab Oral (given by mouth) 2 times a day Contact prescribing physician if questions or concerns ?? Unchanged lisinopril (lisinopril 2.5 mg oral tablet) 1 tab Oral (given by mouth) Every day Contact prescribing physician if questions or concerns ?? Unchanged metoprolol (metoprolol succinate 50 mg oral tablet, extended release) 1 tab Oral (given by mouth) 2 times a day Afib Duration: 90 Days Contact prescribing physician if questions or concerns ?? Unchanged phenazopyridine (Pyridium 200 mg oral tablet) 1 tab Oral (given by mouth) 3 times a day after meals Duration: 3 Days Contact prescribing physician if questions or concerns ?? Unchanged torsemide (torsemide 40 mg oral tablet) 1 tab Oral (given by mouth) Every day Atrial fibrillation Contact prescribing physician if questions or concerns ? What How Much When Comments Stop Taking lamoTRIgine (lamoTRIgine 50 mg oral tablet, disintegrating) 1 tab Oral (given by mouth) Every day Stop Taking sulfamethoxazole-trimethoprim (Bactrim 400 mg-80 mg oral tablet) 2 tab Oral (given by mouth) 2 times a day Duration: 10 Days Allergies Zoloft??(Chest pain) adenosine??(Rapid heart beat) buPROPion [...] infarction: Father and Brother. Electronically Signed on 10/06/23 01:27 PM Bernarda Aguilar NP * Jean Pastor: PERFORM Event Display: Office Clinic Note Physician Authored Date: [id number] Patient Name KAELA AGUILAR (51yo, M) ID# [id number] Appt. Date/Time 03/04/2022 02:00PM 1970 Service Dept. P_Sleep Medicine Provider BERNARDA AGUILAR NP Insurance Med Primary: [facility] (MEDICAID) Insurance # : [id number] Med : [facility] - OUTPATIENT - INSTITUTIONAL (MEDICAID) Insurance # : [id number] Med Enriquez: SLIDING FEE SCHEDULE - DISCOUNT Med : [facility] - INPATIENT - INSTITUTIONAL (MEDICAID) Insurance # : [id number] Med : [facility] - OUTPATIENT - INSTITUTIONAL (MEDICAID) Insurance # : [id number] Prescription: CHANGE - [place] [employer] - Member is eligible. details Chief Complaint None recorded. Patient's Care Team Primary Care Provider: SEVERO ARRIAGA MD: [address] [place] [address], , Orthopedic Surgeon: OMAYRA ACOSTA PASwathiC: [address] [facility] [place] [address], , Helper Maintenance Cleaning: MARIA G CULVER MD: [address] [facility] [place] [address], Ph , General Surgeon: MARIVEL DEL VALLE MD: [address] [facility] [place] [address], , Other: [facility]: [address], [place] [address], , Patient's Pharmacies [facility] ([facility]): [address] [place] [phone], Ph , [id number]: [address] [address], [facility] (ER[facility]): [place] [address], , Vitals Ht: 5 ft 6 in Stated (167.64 cm) 03/04/2022 01:43 pm Wt: 450 lbs With clothes (204.12 kg) 03/04/2022 01:43 pm BMI: 72.6 03/04/2022 01:43 pm BP: 118/72 03/04/2022 01:46 pm Pulse: 66 bpm 03/04/2022 01:46 pm O2Sat: 98% 03/04/2022 01:46 pm Allergies Reviewed Allergies ADENOSINE: Tachycardia (Severe) GABAPENTIN WELLBUTRIN Adensine: PT had an adverse reaction HR went up to 250's. No seafood allergy. No contrast allergy. Medications Reviewed Medications acetaminophen 325 mg tablet Take 2 tablet(s) every 6 hours by oral route as needed. Internal Note: per [facility] DIscharge, start 01/15/2021 01/15/21 started Tameka Lynch RN amiodarone 400 mg tablet Take 1 tablet(s) every day by oral route. Internal Note: pt not taking, start 03/26/2021 03/26/21 started Tameka Lynch RN aspirin 81 mg tablet,delayed release Take 1 tablet(s) every day by oral route., start 12/16/2020 03/18/19 filled [facility] atorvastatin 80 mg tablet Take 1 tablet(s) every day by oral route at bedtime for 90 days. Internal Note: 20 mg QHS, start 12/16/2020 09/29/20 filled surescripts budesonide 32 mcg/actuation nasal spray 2 spray(s) every day by nasal route for 30 days. Internal Note: Each Nostril, start 12/16/2020 10/18/20 filled surescripts Clindagel 1 % topical gel, once daily APPLY A THIN LAYER TO THE AFFECTED AREA(S) BY TOPICAL ROUTE TWICE DAILY NEEDED 01/16/21 entered Tameka Lynch RN clonazePAM 1 mg tablet 1 tablet(s) twice a day by oral route as directed for 30 days. Internal Note: Coty Savage 11/29/2020, start 12/16/2020 10/23/20 filled surescripts Eliquis 5 mg tablet 1 tablet(s) twice a day by oral route for 30 days., start 12/16/2020 11/20/20 filled surescripts furosemide 20 mg tablet Take 1 tablet(s) every day by oral route for 90 days. 04/10/21 prescribed Maria G Culver MD lamoTRIgine 100 mg tablet Take 1 tablet(s) every day by oral route. Internal Note: Coty Savage 12/12/2020, start 12/16/2020 12/16/20 started Arturo Garner MD lisinopriL 2.5 mg tablet Take 1 tablet(s) every day by oral route for 90 days. 03/15/21 prescribed Maria G Culver MD metoprolol succinate ER 100 mg tablet,extended release 24 hr Take 1.5 tablet(s) every day by oral route. Internal Note: 02/21/[address] Escobar 50mg BID and decrease Amiodarone 400mg QD 02/14/21 entered Tameka Lynch, RN nitroglycerin 0.4 mg sublingual tablet DISSOLVE ONE TABLET UNDER THE TONGUE EVERY 5 MINUTES NEEDED FOR CHEST PAIN. DO NOT EXCEED A TOTAL OF 3 DOSES IN 15 MINUTES, start 12/16/2020 11/07/20 filled surescripts Pacerone 200 mg tablet 2 tabs twice daily until 02/24/21 then decrease to 1 tab bid on 02/25/[address] Escobar 02/19/21 entered Tameka Lynch, RN pantoprazole 40 mg tablet,delayed release Take 1 tablet(s) every day by oral route in the morning for 90 days. Internal Note: pt not taking, start 12/16/2020 11/16/20 filled surescripts Vaccines None recorded. Problems Reviewed Problems Obstructive sleep apnea syndrome - PSG 09/16/20 AHI 72.7, 02 67%, CPAP 6-10 cm Roxanna- Hypertensive disorder - Onset: 11/28/2020 Coronary arteriosclerosis - Onset: 11/28/2020 Atrial fibrillation - Onset: 11/28/2020 Supraventricular tachycardia - Onset: 11/28/2020 Nocturnal dyspnea - Onset: 08/11/2020 Epigastric pain Family History Family History not reviewed (last reviewed 10/11/2021) Father - Myocardial infarction - Hypertensive disorder - Hyperlipidemia Brother - Myocardial infarction - Hypertensive disorder - Hyperlipidemia - Diabetes mellitus Social History Reviewed Social History Advanced Directive Do you have an advanced directive?: No What is your code status?: 0 Education and Occupation Are you currently employed?: Yes 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 Diet and Exercise What is your exercise level?: Moderate (Notes: light housework light yardwork, stairs, walks) Substance Use Do you or have you ever smoked tobacco?: Former smoker (Notes: quit 2009) How much tobacco do you chew?: none What was the date of your most recent tobacco screening?: 04/03/2021 What is your level of alcohol consumption?: None Have you used IV drugs?: No What is your level of caffeine consumption?: None Home and Environment Are there any guns present in your home?: Yes Activities of Daily Living Are you blind or do you have difficulty seeing?: No Which of your hands is dominant?: Right Other Animal exposure?: Yes (Notes: 5 dogs/bird/ 3 snakes) Auto related injury?: No Currently : No Hard of hearing or deaf in one or both ears?: No Live alone or with others?: with others (Notes: /mother) If injured, is litigation ongoing?: No General stress level: High (Notes: due to hear problems) Work related injury?: No Gender Identity and LGBTQ Identity First name used: BIB Surgical History Surgical History not reviewed (last reviewed 04/03/2021) Tonsillectomy Cardiac ablation using fluoroscopy guidance - 01/11/2021 - 07-10-2020 Cardiac Catheterization - 01/11/2021 - 07-13-2017 Past Medical History Past Medical History not reviewed (last reviewed 07/19/2020) Hypertension: Y Notes: EGD[10/04/2016] Screening Name Score Notes [place] Sleepiness 0 HPI Kaela Aguilar has a visit for PILAR follow-up. Kaela was seen by me on 02/20/21. He has a medical history to include CAD (s/p NSTEMI 2016), SVT (s/p cardioversion), a-fib, HTN and morbid obesity. He noted symptoms of mild snoring, nocturnal gasping, and fatigue. Polysomnogram was completed on 09/16/2020 (BMI 60.76) . Sleep efficiency was 79%, AHI 72.7/hr, RDI 73.4/hr, REM AHI 68.2/hr, REM RDI 68.2/hr, supine AHI 73/hr, right lateral AHI N/A, left lateral AHI N/A, sp02 mike 67%, 51 minutes were spent at a saturation <88%, arousal index 44/hr, PLMi 0/hr, PLM arousal index 0/hr. EKG showed frequent PVC's and PAC's. Last visit he was using CPAP 6-10 cm with nasal pillows and a residual AHI of 6.9/hr. He had poor tolerance initially to higher pressures. I set CPAP to 7-10 cm last visit. A follow-up oximetry 03/10/21 with only 28 seconds <88%. Bib tells me he stopped using his CPAP when he learned about the recall (over a month). He does notnotice a difference with or without CPAP. He has been back on it since he received the replacement several months ago. He is using it every night. He is sleeping from about 11pm-12 am until 7 am. He falls asleep easily, he wakes up 0 times most nights. He is not napping. The CPAP pressure feels ok. He says he actually raised the pressure because he thought it might be too low. He set it at 6-13 cm. He feels very well rested. He is using nasal pillows and has occasional nasal irritation that is better with vit D oil. ESS today COMPLIANCE DATA REVIEWED WITH PATIENT: 02/02/22-03/03/22, Used 30/30 days, average use 7 hours 52 minutes a night, mean pressure 7.3cm, 90 th percentile pressure 9cm, time in large air leak 0 minutes, AHI 6.3/hour. ROS ROS as noted in the HPI Physical Exam General: A&O, well groomed morbidly obese. HEAD: normocephalic & atraumatic. EYES: non icteric. LUNGS: CTA all georges. Good air movement. CARDIO: RRR without murmur, gallop or thrill. NEURO: A&O. Normal gait. PSYCH: Normal mood and affect. CUTANEOUS: no overt lesions or rashes Assessment / Plan 1. Obstructive sleep apnea syndrome - Severe PILAR with an AHI of 72.7/hr and sp02 mike of 67%. He has been using CPAP 6-13 cm (he actually changed the pressure on his own down from 7-10 cm). A follow-up oximetry on these settings showed elimination of any significant hypoxemia. He has an AHI just slightly above goal so I have changed the pressure back to 7 cm. I did let him know the small, but potential dangers of adjusting pressureson his own to include central apneas and aerophagia or worsening AHI. He continues to sleep well and feel well rested. Continued use of CPAP is recommended. He is encouraged to keep up with the routine maintenance of the machine and to clean and replace parts as indicated. I will see him back in two years. He is asked to call the clinic for any sleep related questions or concerns. I provided greater than 30 minutes in the care of this patient, more than half the time was spent in [id number] counseling. G47.33: Obstructive sleep apnea (adult) (pediatric) Return to Office Maria G Culver MD for Follow Up 30 at [facility] on 04/23/2022 at 10:00 AM to see BERNARDA AGUILAR NP at Sleep Medicine on or around 03/04/2024 Electronically Signed on 10/03/23 09:13 AM Jean Pastor Patient Care team information Care Team Personnel Name: Gr[facility]ie [facility], Severo Moe MD Position: No Access Member Role: Primary Care Physician Address: Address: [facility] [address] [place] [address]- Care Team Related Persons Name: AUTUMN AGUILAR Address: Home [address] [facility], [id number]
--- OUTSIDE RECORDS SUMMARY | 2023-12-17 18:17 | XMS_ITS | Continuity of Care Document ---
Author Name Unknown Organization [facility] Address [address] [place] [address] Care Team Providers Care Real Estate Account Executive Name Role Phone Primeau Bin MOTA Primary Care Physician Encounter [facility] [id number] Date(s): 11/04/23 - 11/04/[address] [address] Encounter Diagnosis Hypokalemia(Discharge Diagnosis) - 11/04/23 Discharge Disposition: Home or Self Care Attending [...] BID, # 180 tab, 4 Refill(s), Pharmacy: [id number], 168, cm, 11/17/22 13:46:00 EST, Height/Length Dosing, 210, kg, 11/17/22 13:46:00 EST, Weight Dosing Start Date: 06/24/23 Stop Date: 09/16/24 Status: Ordered Potassium Chloride (Jdl-Jzar-Yec 10) 10 mEq oral tablet, extended release 4 tabs, Oral, Daily, # 360 tab, 3 Refill(s), Pharmacy: [facility], 167.64, cm, 10/06/23 12:44:00 EST, Height, 204.12, kg, 10/06/23 12:54:00 EST, Weight Dosing Start Date: 10/31/23 Status: Ordered Pyridium 200 mg oral tablet 200 mg = 1 tab, Oral, TID(PC), # 9 tab, 0 Refill(s), Pharmacy: [facility], 168, cm, 11/17/22 13:46:00 EST, Height/Length Dosing, 210, kg, 11/17/22 13:46:00 EST, Weight Dosing Start Date: 11/17/22 Stop Date: 11/20/22 Status: Ordered torsemide 40 mg oral tablet 40 mg = 1 tab, Oral, Daily, # 90 tab, 4 Refill(s), Pharmacy: [facility], 167.64, cm, 09/30/23 13:19:00 EST, Height, 206.6, [...] tachycardia Confirmed 11/28/20 Active 1CPAP 7-3 cm [place] Procedures Procedure Date Related Diagnosis Body Site Status Cardiac ablation using fluor oscopy guidance 1 01/10/21 Completed Cardiac catheterization 2 01/10/21 Completed Tonsillectomy Completed Results Laboratory List Name Date Basic Metabolic Panel (BMP) 11/04/23 Magnesium Level 11/04/23 Most recent to oldest [Reference Range]: 1 BUN [7-18 mg/dL] 12 mg/dL (11/04/23 1:42 PM) Glucose Level [74-106 mg/dL] 134 mg/dL *HI* (11/04/23 1:42 PM) Potassium Level [3.5-5.1 mmol/L] 4.1 mmo l/L (11/04/23 1:42 PM) Sodium Level [136-145 mmol/L] 142 mmol/L (11/04/23 1:42 PM) Calcium Level [8.5-10.1 mg/dL] 10.1 mg/d L (11/04/23 1:42 PM) Magnesium Level [1.8-2.4 mg/dL] 2.0 mg/d L (11/04/23 1:42 PM) CO2 [21-32 mmol/L] 34 mmol/L *HI* (11/04/23 1:42 PM) eGFR Non-AA [>=60] 83 (11/04/23 1:42 PM) eGFR AA [>=60] 83 (11/04/23 1:42 PM) Chloride Level [98-107 mmol/L] 103 mmol/ L (11/04/23 1:42 PM) Creatinine Level [0.70-1.30 mg/dL] 1.07 mg/dL (11/04/23 1:42 PM) Vital Signs Most recent to oldest [Reference Range]: 1 2 Temperature Temporal Artery [36-38 Deg C ] 36.2 Deg C (11/04/23 12:18 PM) Peripheral Pulse Rate [60-100 bpm] 66 bp m (11/04/23 2:52 PM) 71 bpm (11/04/23 12:18 PM) Heart Rate Monitored [60-100 bpm] 62 bpm (11/04/23 2:52 PM) Respiratory Rate [12-24 br/min] 23 br/mi n (11/04/23 2:52 PM) 18 br/min (11/04/23 12:18 PM) Blood Pressure [90-140/60-90 mmHg] 136/8 3mmHg (11/04/23 12:18 PM) Mean Arterial Pressure, Cuff [70-110 mmHg] 101 mmHg (11/04/23 12:18 PM) Weight 208.7 kg (11/04/23 12:18 PM) Weight Dosing 208.700 kg (11/04/23 12:18 PM) Social History Social History Type Response Smoking Status Smoking tobacco use: Former tobacco user;Former smokeless tobacco user, quit more than 30 days ago; Number of years: 15; entered on: 10/06/23 Sex Male Hospital Discharge Instructions Patient Education 11/04/2023 13:48:47 Hypokalemia Hypokalemia Hypokalemia means that the amount of potassium in the blood is lower than normal. Potassium is a mineral (electrolyte) that helps regulate the amount of fluid in the body. It also stimulates muscle tightening (contraction) and helps nerves work properly. Normally, most of the body's potassium is inside cells, and only a very small amount is in the blood. Because the amount in the blood is so small, minor changes to potassium levels in the blood can be life-threatening. What are the causes? This condition may be caused by: ??? Antibiotic medicine. ??? Diarrhea or vomiting. Taking too much of a medicine that helps you have a bowel movement (laxative) can cause diarrhea and lead to hypokalemia. ??? Chronic kidney disease (CKD). ??? Medicines that help the body get rid of excess fluid (diuretics). ??? Eating disorders, such as anorexia or bulimia. ??? Low magnesium levels in the body. ??? Sweating a lot. What are the signs or symptoms? Symptoms of this condition include: ??? Weakness. ??? Constipation. ??? Fatigue. ??? Muscle cramps. ??? Mental confusion. ??? Skipped heartbeats or irregular heartbeat (palpitations). ??? Tingling or numbness. How is this diagnosed? This condition is diagnosed with a blood test. How is this treated? This condition may be treated by: ??? Taking potassium supplements. ??? Adjusting the medicines that you take. ??? Eating more foods that contain a lot of potassium. If your potassium level is very low, you may need to get potassium through an IV and be monitored in the hospital. Follow these instructions at home: Eating and drinking ??? Eat a healthy diet. A healthy diet includes fresh fruits and vegetables, whole grains, healthy fats, and lean proteins. ??? If told, eat more foods that contain a lot of potassium. These include: ??? Nuts, such as peanuts and pistachios. ??? Seeds, such as sunflower seeds and pumpkin seeds. ??? Peas, lentils, and barrios beans. ??? Whole grain and bran cereals and breads. ??? Fresh fruits and vegetables, such as apricots, avocado, bananas, cantaloupe, kiwi, oranges, tomatoes, asparagus, and potatoes. ??? Juices, such as orange, tomato, and prune. ??? Lean meats, including fish. ??? Milk and milk products, such as yogurt. General instructions ??? Take iqaq-wkm-fmaabzd and prescription medicines only as told by your health care provider. This includes vitamins, natural food products, and supplements. ??? Keep all follow-up visits. This is important. Contact a health care provider if: ??? You have weakness that gets worse. ??? You feel your heart pounding or racing. ??? You vomit. ??? You have diarrhea. ??? You have diabetes and you have trouble keeping your blood sugar in your target range. Get help right away if: ??? You have chest pain. ??? You have shortness of breath. ??? You have vomiting or diarrhea that lasts for more than 2 days. ??? You faint. These symptoms may be an emergency. Get help right away. Call 911. ??? Do not wait to see if the symptoms will go away. ??? Do not drive yourself to the hospital. Summary ??? Hypokalemia means that the amount of potassium in the blood is lower than normal. ??? This condition is diagnosed with a blood test. ??? Hypokalemia may be treated by taking potassium supplements, adjusting the medicines that you take, or eating more foods that are high in potassium. ??? If your potassium level is very low, you may need to get potassium through an IV and be monitored in the hospital. This information is not intended to replace advice given to you by your health care provider. Make sure you discuss any questions you have with your health care provider. Document Revised: 07/11/2022 Document Reviewed: 07/11/2022 [employer] Patient Education ?? 2022 [employer]. 11/04/2023 13:48:44 Potassium Content of Foods Potassium Content of Foods Potassium is a mineral found in many foods and drinks. It can affect how the heart works, affect blood pressure, and keep fluids and electrolytes balanced in the body. It is important not to have toomuch potassium (hyperkalemia) or too little potassium (hypokalemia) in the body, especially in the blood. Potassium is naturally found in many different types of whole foods, such as fruits, vegetables, meat, and dairy products. Processed foods tend to be lower in potassium. The amount of potassium you need each day depends on your age and any medical conditions you may have. General recommendations are: ??? Females aged 19 and older: 2,600 mg per day. ??? Males aged 19 and older: 3,400 mg per day. Talk with your health care provider or dietitian about how much potassium you need. What foods are high in potassium? Below are examples of foods that have greater than 200 mg of potassium per serving. Fruits ??? Corozal ??? 1 medium (130 g) has 230 mg of potassium. ??? Banana ??? 1 medium (120 g) has 420 mg of potassium. ??? Cantaloupe, chunks ??? 1 cup (160 g) has 430 mg of potassium. Vegetables ??? Potato, baked, without skin ??? 1 medium (170 g) has 600 mg of potassium. ??? Broccoli, chopped, cooked ? cup (77.5 g) has 230 mg of potassium. ??? Tomato, chopped or sliced ??? 1 cup (152 g) has 400 mg of potassium. Grains ??? Cereal, bran with raisins ??? 1 cup (59 g) has 360 mg of potassium. ??? Granola with almonds ? cup (82 g) has 220 mg of potassium. Meats and other proteins ??? Ground beef erica ??? 4 ounces (113 g) has 240 mg of potassium. ??? Kidney beans, boiled ? cup (130 g) has 350 mg of potassium. ??? Almonds ??? 1 ounce (approximately 22 nuts or 28 g) has 200 mg of potassium. Dairy ??? Cow's milk, 1% ??? 1 cup (237 mL) has 360 mg of potassium. ??? Plain vanilla low-fat yogurt ? cup (184 g) has 220 mg of potassium. The items listed above may not be a complete list of foods high in potassium. Actual amounts of potassium may be different depending on ripeness, shelf life, and food preparation. Contact a dietitianfor more information. What foods are low in potassium? Below are examples of foods that have less than 200 mg of potassium per serving. Fruits ??? Blueberries ??? 1 cup (145 g) has 110 mg of potassium. ??? Apple ??? 1 medium (140 g) has 145 mg of potassium. ??? Grapes ??? 1 cup (160 g) has 175 mg of potassium. Vegetables ??? Cabbage, raw ??? 1 cup (70 g) has 120 mg of potassium. ??? Cauliflower, chopped, cooked ??? 1 cup (180 g) has 90 mg of potassium. ??? George lettuce, chopped ??? 1 cup (56 g) has 120 mg of potassium. Grains ??? Bagel, plain ??? one 4-inch (10 cm) has 100 mg of potassium. ??? Whole wheat bread ??? 1 slice (26 g) has 70 mg of potassium. ??? White rice, cooked ??? 1 cup (163 g) has 50 mg of potassium. Meats and other proteins ??? Tuna, light, canned in water ??? 3 ounces (85 g) has 150 mg of potassium. ??? Egg, fried ??? 1 large (50 g) has 60 mg of potassium. ??? Peanuts ???1 ounce (35 nuts or 28 g) has 180 mg of potassium. ??? Tofu ? cup (252 g) has 150 mg of potassium. Dairy ??? Cheese (cheddar, felisa, mozzarella, or provolone) ??? 1 ounce (28 g) has 30 to 40 mg of potassium. The items listed above may not be a complete list of foods that are low in potassium. Actual amounts of potassium may be different depending on ripeness, shelf life, and food preparation. Contact a dietitian for more information. Summary ??? Potassium is a mineral found in many foods and drinks. It affects how the heart works, affects blood pressure, and keeps fluids and electrolytes balanced in the body. ??? The amount of potassium you need each day depends on your age and any existing medical conditions you may have. ??? Your health care provider or dietitian may recommend an amount of potassium that you should have each day. This information is not intended to replace advice given to you by your health care provider. Make sure you discuss any questions you have with your health care provider. Document Revised: 07/30/2022 Document Reviewed: 07/11/2022 [employer] Patient Education ?? 2022 [employer]. Physician Emergency department Note * Bin Alcantar MD: PERFORM Event Display: ED Note Physician Authored Date: [id number] KAELA GRAY :1970 Age:52 years Sex:Male Visit Date:11/04/2023 [facility] Information Time Seen: Bin Alcantar MD / 11/04/2023 13:19 Chief Complaint K 2.2 on friday put on potassium pills. I take lasix so thats why its low. Today feeling dizzy fatigue. chronic sob denies chest pain pitting +1 edema noted to RLE pt states its better than normal History Of Present Illness: Patient is concerns are fatigue and lightheadedness.?? Notified by??cardiology that potassium is low at 2.9. ??Referred to ED for replacement. Review of Systems: Other than as per HPI noncontributory. Physical Exam Vitals & Measurements T:??36.2?C ??(Temporal Artery)?? HR:??71??(Peripheral)?? RR:??18?? BP:??136/83?? SpO2:??100%?? WT:??208.7??kg?? O2 Therapy:??Room air?? No distress. ??Minimal peripheral edema. Medical Decision Making: Problem complexity is low. ??Data complexity is low. ??Management risk are low. ??[facility] coding 29358. Procedure No Qualifying Data Assessment/Plan 1.??Hypokalemia??E87.6 Patient Education Hypokalemia Potassium Content of Foods Medication Reconciliation Unchanged apixaban (Eliquis 5 mg oral tablet)1 tab Oral (given by mouth) 2 times a day. ?? aspirin (aspirin 81 mg oral capsule)1 Capsules Oral (given by mouth) every day. do not exceed 48 capsules in 24 hours. ?? clonazePAM (clonazePAM 1 mg oral tablet)1 tab Oral (given by mouth) 3 times a day. ?? dulaglutide (Trulicity Pen 3 mg/0.5 mL subcutaneous solution)0.5 Milliliters Subcutaneous (under the skin) every week. rotate injection sites. ?? lamoTRIgine (lamoTRIgine 200 mg oral tablet)1 tab Oral (given by mouth) 2 times a day. ?? lisinopril (lisinopril 2.5 mg oral tablet)1 tab Oral (given by mouth) every day. ?? metoprolol (metoprolol succinate 50 mg oral tablet, extended release)1 tab Oral (given by mouth) 2 times a day for 90 Days. Refills: 4. ?? phenazopyridine (Pyridium 200 mg oral tablet)1 tab Oral (given by mouth) 3 times a day after meals for 3 Days. Refills: 0. ?? potassium chloride (Potassium Chloride (Ekw-Rasg-Eam 10) 10 mEq oral tablet, extended release)4 tabs Oral (given by mouth) every day. Refills: 3. ?? torsemide (torsemide 40 mg oral tablet)1 tab Oral (given by mouth) every day. Refills: 4. Problem List/Past Medical History Ongoing Atrial fibrillation Coronary arteriosclerosis Epigastric pain Hypertensive disorder Morbid obesity Nocturnal dyspnea Obstructive sleep apnea syndrome Supraventricular tachycardia Historical No qualifying data Procedure/Surgical History ???Cardiac ablation using fluoroscopy guidance (01/11/2021)???Cardiac catheterization (01/11/2021)???Tonsillectomy Medication Administration Given potassium chloride, 10 mEq, IV Piggyback Allergies Zoloft??(Chest pain) adenosine??(Rapid heart beat) buPROPion gabapentin Social History Electronic Cigarette/Vaping Electronic Cigarette Use: Former use, quit more than 90 days ago. Tobacco Former tobacco user Tobacco Use:. 14 year(s). Former smokeless tobacco user, quit more than 30 daysago Smokeless Tobacco use:. Family History Diabetes mellitus: Brother. Hyperlipidemia: Father and Brother. Hypertensive disorder: Father and Brother. Myocardial infarction: Father and Brother. Lab Results Routine Chemistry?? LATEST RESULTS?? HISTORICAL RESULTS?? Sodium Level?? 11/04/23 13:42?? 142?? 10/29/23?? 137?? Potassium Level?? 11/04/23 13:42?? 4.1?? 10/29/23?? 2.9 ??Low?? Chloride Level?? 11/04/23 13:42?? 103?? 10/29/23?? 97 ??Low?? CO2?? 11/04/23 13:42?? 34 ??High?? 10/29/23?? 32?? BUN?? 11/04/23 13:42?? 12?? 10/29/23?? 10?? Glucose Level?? 11/04/23 13:42?? 134 ??High?? 10/29/23?? 129 ??High?? Creatinine Level?? 11/04/23 13:42?? 1.07?? 10/29/23?? 0.93?? eGFR AA?? 11/04/23 13:42?? 83?? 10/29/23?? 98?? eGFR Non-AA?? 11/04/23 13:42?? 83?? 10/29/23?? 98?? Calcium Level?? 11/04/23 13:42?? 10.1?? 10/29/23?? 9.3?? Magnesium Level?? 11/04/23 13:42?? 2.0? Electronically Signed on 11/04/23 02:49 PM Bin Alcantar MD Emergency department Discharge instructions * Bin Alcantar MD: PERFORM Event Display: ED Discharge Information Authored Date: [id number] KAELA GRAY :1970 Age:52 years Sex:Male Visit Date:11/04/2023 Primary Care Physician: Bin Boyce MD Discharge Instructions We would like to thank you for allowing us to assist you with your healthcare needs. The following includes patient education materials and information regarding your injury/illness. Diagnosis from Today's Visit Hypokalemia Discharge Vitals Temperature??(Temporal Artery) 97.2 ??F (36.2 ??C) Heart Rate??(Peripheral) 71 Respiratory Rate?? 18 Blood Pressure?? 136/83?? Weight?? 460.18 lb (208.7 kg) Allergies Zoloft??(Chest pain) adenosine??(Rapid heart beat) buPROPion gabapentin What to Do Next Instructions from Your Care Team A aeki-ixv-ejiovcb magnesium supplement 500 mg/day??may be??beneficial.?? High potassium diet may also be helpful.?? Consider??thigh height compression stockings. ?? Bin Alcantar MD Upcoming Scheduled Appointments Friday 12:40 PM EST ?? With: Suzy Hall ADMINISTRATIVE SALES ASSISTANT Where: [facility] [address] [place] [address] Status: Confirmed Friday 10:15 AM EST ?? With: Bernarda Aguilar NP Where: [facility] [address] [place] [address] Status: Confirmed You were treated today on an emergency [...] How Much When Why Instructions Next Dose Unchanged apixaban (Eliquis 5 mg oral tablet) [...] by mouth) 2 times a day Unchanged lisinopril (lisinopril 2.5 mg oral tablet) 1 tab Oral (given by mouth) Every day Unchanged metoprolol (metoprolol succinate 50 mg oral tablet, extended release) 1 tab Oral (given by mouth) 2 times a day Afib Duration: 90 Days Unchanged phenazopyridine (Pyridium 200 mg oral tablet) 1 tab Oral (given by mouth) 3 times a day after meals Duration: 3 Days Unchanged potassium chloride (Potassium Chloride (Nih-Kzjb-Mqo 10) 10 mEq oral tablet, extended release) 4 tabs Oral (given by mouth) Every day Atrial fibrillation Unchanged torsemide (torsemide 40 mg oral tablet) 1 tab Oral (given by mouth) Every day Atrial fibrillation Education Materials Hypokalemia Hypokalemia means that the amount of potassium in the blood is lower than normal. Potassium is a mineral (electrolyte) that helps regulate the amount of fluid in the body. It also stimulates muscle tightening (contraction) and helps nerves work properly. Normally, most of the body's potassium is inside cells, and only a very small amount is in the blood. Because the amount in the blood is so small, minor changes to potassium levels in the blood can be life-threatening. What are the causes? This condition may be caused by: ? Antibiotic medicine. ? Diarrhea or vomiting. Taking too much of a medicine that helps you have a bowel movement (laxative)can cause diarrhea and lead to hypokalemia. ? Chronic kidney disease (CKD). ? Medicines that help the body get rid of excess fluid (diuretics). ? Eating disorders, such as anorexia or bulimia. ? Low magnesium levels in the body. ? Sweating a lot. What are the signs or symptoms? Symptoms of this condition include: ? Weakness. ? Constipation. ? Fatigue. ? Muscle cramps. ? Mental confusion. ? Skipped heartbeats or irregular heartbeat (palpitations). ? Tingling or numbness. How is this diagnosed? This condition is diagnosed with a blood test. How is this treated? This condition may be treated by: ? Taking potassium supplements. ? Adjusting the medicines that you take. ? Eating more foods that contain a lot of potassium. If your potassium level is very low, you may need to get potassium through an IV and be monitored in the hospital. Follow these instructions at home: Eating and drinking ? Eat a healthy diet. A healthy diet includes fresh fruits and vegetables, whole grains, healthy fats, and lean proteins. ? If told, eat more foods that contain a lot of potassium. These include: ? Nuts, such as peanuts and pistachios. ? Seeds, such as sunflower seeds and pumpkin seeds. ? Peas, lentils, and barrios beans. ? Whole grain and bran cereals and breads. ? Fresh fruits and vegetables, such as apricots, avocado, bananas, cantaloupe, kiwi, oranges, tomatoes, asparagus, and potatoes. ? Juices, such as orange, tomato, and prune. ? Lean meats, including fish. ? Milk and milk products, such as yogurt. General instructions ? Take qamd-dpp-vwqhqht and prescription medicines only as told by your health care provider. This includes vitamins, natural food products, and supplements. ? Keep all follow-up visits. This is important. Contact a health care provider if: ? You have weakness that gets worse. ? You feel your heart pounding or racing. ? You vomit. ? You have diarrhea. ? You have diabetes and you have trouble keeping your blood sugar in your target range. Get help right away if: ? You have chest pain. ? You have shortness of breath. ? You have vomiting or diarrhea that lasts for more than 2 days. ? You faint. These symptoms may be an emergency. Get help right away. Call 911. ? Do not wait to see if the symptoms will go away. ? Do not drive yourself to the hospital. Summary ? Hypokalemia means that the amount of potassium in the blood is lower than normal. ? This condition is diagnosed with a blood test. ? Hypokalemia may be treated by taking potassium supplements, adjusting the medicines that you take, or eating more foods that are high in potassium. ? If your potassium level is very low, you may need to get potassium through an IV and be monitored in the hospital. This information is not intended to replace advice given to you by your health care provider. Make sure you discuss any questions you have with your health care provider. Document Revised: 07/11/2022 Document Reviewed: 07/11/2022 [employer] Patient Education ?? 2022 [employer] Potassium Content of Foods Potassium is a mineral found in many foods and drinks. It can affect how the heart works, affect blood pressure, and keep fluids and electrolytes balanced in the body. It is important not to have toomuch potassium (hyperkalemia) or too little potassium (hypokalemia) in the body, especially in the blood. Potassium is naturally found in many different types of whole foods, such as fruits, vegetables, meat, and dairy products. Processed foods tend to be lower in potassium. The amount of potassium you need each day depends on your age and any medical conditions you may have. General recommendations are: ? Females aged 19 and older: 2,600 mg per day. ? Males aged 19 and older: 3,400 mg per day. Talk with your health care provider or dietitian about how much potassium you need. What foods are high in potassium? Below are examples of foods that have greater than 200 mg of potassium per serving. Fruits ? [place]al ??? 1 medium (130 g) has 230 mg of potassium. ? Banana ??? 1 medium (120 g) has 420 mg of potassium. ? Cantaloupe, chunks ??? 1 cup (160 g) has 430 mg of potassium. Vegetables ? Potato, baked, without skin ??? 1 medium (170 g) has 600 mg of potassium. ? Broccoli, chopped, cooked ? cup (77.5 g) has 230 mg of potassium. ? Tomato, chopped or sliced ??? 1 cup (152 g) has 400 mg of potassium. Grains ? Cereal, bran with raisins ??? 1 cup (59 g) has 360 mg of potassium. ? Granola with almonds ? cup (82 g) has 220 mg of potassium. Meats and other proteins ? Ground beef erica ??? 4 ounces (113 g) has 240 mg of potassium. ? Kidney beans, boiled ? cup (130 g) has 350 mg of potassium. ? Almonds ??? 1 ounce (approximately 22 nuts or 28 g) has 200 mg of potassium. Dairy ? Cow's milk, 1% ??? 1 cup (237 mL) has 360 mg of potassium. ? Plain vanilla low-fat yogurt ? cup (184 g) has 220 mg of potassium. The items listed above may not be a complete list of foods high in potassium. Actual amounts of potassium may be different depending on ripeness, shelf life, and food preparation. Contact a dietitianfor more information. What foods are low in potassium? Below are examples of foods that have less than 200 mg of potassium per serving. Fruits ? Blueberries ??? 1 cup (145 g) has 110 mg of potassium. ? Apple ??? 1 medium (140 g) has 145 mg of potassium. ? Grapes ??? 1 cup (160 g) has 175 mg of potassium. Vegetables ? Cabbage, raw ??? 1 cup (70 g) has 120 mg of potassium. ? Cauliflower, chopped, cooked ??? 1 cup (180 g) has 90 mg of potassium. ? George lettuce, chopped ??? 1 cup (56 g) has 120 mg of potassium. Grains ? Bagel, plain ??? one 4-inch (10 cm) has 100 mg of potassium. ? Whole wheat bread ??? 1 slice (26 g) has 70 mg of potassium. ? White rice, cooked ??? 1 cup (163 g) has 50 mg of potassium. Meats and other proteins ? Tuna, light, canned in water ??? 3 ounces (85 g) has 150 mg of potassium. ? Egg, fried ??? 1 large (50 g) has 60 mg of potassium. ? Peanuts ???1 ounce (35 nuts or 28 g) has 180 mg of potassium. ? Tofu ? cup (252 g) has 150 mg of potassium. Dairy ? Cheese (cheddar, felisa, mozzarella, or provolone) ??? 1 ounce (28 g) has 30 to 40 mg of potassium. The items listed above may not be a complete list of foods that are low in potassium. Actual amounts of potassium may be different depending on ripeness, shelf life, and food preparation. Contact a dietitian for more information. Summary ? Potassium is a mineral found in many foods and drinks. It affects how the heart works, affects blood pressure, and keeps fluids and electrolytes balanced in the body. ? The amount of potassium you need each day depends on your age and any existing medical conditions you may have. ? Your health care provider or dietitian may recommend an amount of potassium that you should have each day. This information is not intended to replace advice given to you by your health care provider. Make sure you discuss any questions you have with your health care provider. Document Revised: 07/30/2022 Document Reviewed: 07/11/2022 Elsevier Patient Education ?? 2022 Elsevier Inc. Tests Performed Medications and Immunizations Administered Given potassium chloride, 10 mEq, IV Piggyback Lab Test Name Test Result Date/Time Sodium Level 142 mmol/L 11/04/2023 13:42 EST Potassium Level 4.1 mmol/L 11/04/2023 13:42 EST Chloride Level 103 mmol/L 11/04/2023 13:42 EST CO2 34 mmol/L 11/04/2023 13:42 EST BUN 12 mg/dL 11/04/2023 13:42 EST Glucose Level 134 mg/dL 11/04/2023 13:42 EST Creatinine Level 1.07 mg/dL 11/04/2023 13:42 EST eGFR AA 83 11/04/2023 13:42 EST eGFR Non-AA 83 11/04/2023 13:42 EST Calcium Level 10.1 mg/dL 11/04/2023 13:42 EST Magnesium Level 2.0 mg/dL 11/04/2023 13:42 EST Patient/Block Captain Signature Patient Name:KAELA GRAY I have received this information and my questions have been answered. Patient/Block Captain Name: Patient/Block Captain Signature: Relationship to Patient: Witness Name/Signature: Date: Electronically Signed on: 11/04/2023 14:49 ESTSigned by:[facility] Emergency department Note * Kinga Sloan: PERFORM Event Display: ED Notes Authored Date: Patient Care team information Care Team Personnel Name: Suresh Roth MD Position: Physician Member Role: Informed Provider Address: Address: [address] [place] [id number] Name: Bin Boyce MD Position: No Access Member Role: Primary Care Physician Address: Address: [id number] [place] [address] Name: Ericka Reed Position: Nurse Member Role: ED Nurse Name: Bin Alcantar MD Position: Physician Member Role: ED Physician Address: Address: [address] [place] [id number] [place] Care Team Related Persons Name: MASON GRAY Address: Home [address] [facility], [id number]
--- OUTSIDE RECORDS SUMMARY | 2023-12-17 18:17 | XMS_ITS | Continuity of Care Document ---
Author Name Unknown Organization [facility] Address [address] [place] [address] Care Team Providers Care Shuttle Route Vehicle Operator Name Role Phone [place] [facility], Bin Moe Primary Care Physician Encounter [facility] [id number] Date(s): 12/10/23 - 12/10/[address] [id number] Encounter Diagnosis Hematuria(Discharge Diagnosis) - 12/10/23 Discharge Disposition: Home or Self Care Attending Physician: Esther Hodgson MD Admitting Physician: Esther Hodgson MD Allergies, Adverse Reactions, Alerts Substance Reaction Severity Status adenosine 1 Rapid heart beat Severe Active gabapentin Unknown Active buPROPion Unknown Active Zoloft Chest pain Severe Active 1PT had an adverse reaction HR went up to 250%27s Assessment and Plan Extracted from: Title:ED Provider Note Author:Kristy Iqbal Ma, MD Date:12/10/23 Assessment/Plan 1.??Hematuria??R31.9 Ordered: Discharge Patient, 12/10/23 11:56:00 EST, Constant Indicator ?? Patient Education Hematuria, Adult Follow Up With When Contact Information Tacho Machado MD Within 1 to 2 weeks [facility] [address] [place] [id number] ?? Additional Instructions: Future Appointments Future Scheduled Tests Laboratory* Basic Metabolic Panel 11/06/23 Functional Status 12/10/23 Family Member Travel History No recent t ravel Recent Travel History No recent travel Other exposure to Infectious Disease Non e Medications aspirin 81 mg oral capsule 81 [...] BID, # 180 tab, 4 Refill(s), Pharmacy: [facility], 168, cm, 11/17/22 13:46:00 EST, Height/Length Dosing, 210, kg, 11/17/22 13:46:00 EST, Weight Dosing Start Date: 06/24/23 Stop Date: 09/16/24 Status: Ordered Potassium Chloride (Dyl-Bgzw-Qbj 10) 10 mEq oral tablet, extended release 4 tabs, Oral, Daily, # 360 tab, 3 Refill(s), Pharmacy: [facility] [id number], 167.64, cm, 10/06/23 12:44:00 EST, Height, 204.12, kg, 10/06/23 12:54:00 EST, Weight Dosing Start Date: 10/31/23 Status: Ordered Pyridium 200 mg oral tablet 200 mg = 1 tab, Oral, TID(PC), # 9 tab, 0 Refill(s), Pharmacy: [facility], 168, cm, 11/17/22 13:46:00 EST, Height/Length Dosing, 210, kg, 11/17/22 13:46:00 EST, Weight Dosing Start Date: 11/17/22 Stop Date: 11/20/22 Status: Ordered torsemide 40 mg oral tablet 40 mg = 1 tab, Oral, Daily, # 90 tab, 4 Refill(s), Pharmacy: [facility] [id number], 167.64, cm, 09/30/23 13:19:00 EST, [...] if Indicated and C ulture if Indicated 12/10/23 Urinalysis Microscopic 12/10/23 Most recent to oldest [Reference Range]: 1 UA Color Pale Yellow (12/10/23 11:33 AM) UA WBC [0-3] 0-3 (12/10/23 11:33 AM) UA Urobilinogen Normal (12/10/23 11:33 AM) UA Bili [Negative] Negative (12/10/23 11:33 AM) UA Ketones Negative (12/10/23 11:33 AM) UA RBC [0-2] 3-5 (12/10/23 11:33 AM) UA Leuk Est Negative (12/10/23 11:33 AM) UA Nitrite Negative (12/10/23 11:33 AM) UA Glucose [Negative] Negative (12/10/23 11:33 AM) UA Bacteria None Seen /HPF (12/10/23 11:33 AM) UA Protein Negative (12/10/23 11:33 AM) UA Blood 1+ *ABN* (12/10/23 11:33 AM) UA Mucous None Seen /HPF (12/10/23 11:33 AM) UA Spec Grav 1.010 *NA* (12/10/23 11:33 AM) UA Squam Epithelial [None Seen] Rare (12/10/23 11:33 AM) UA pH 5.5 *NA* (12/10/23 11:33 AM) UA Appear Clear (12/10/23 11:33 AM) UA Culture Ind?. Not Indicated (12/10/23 11:33 AM) Vital Signs Most recent to oldest [Reference Range]: 1 2 3 Temperature Tympanic [36.6-38.1 Deg C] 36.5 Deg C *LOW* (12/10/23:23 AM) Peripheral Pulse Rate [60-100 bpm] 94 bpm (12/10/23 12:02 PM) 96 bpm (12/10/23:38 AM) Heart Rate Monitored [60-100 bpm] 95 bpm (12/10/23 11:23 AM) Respiratory Rate [12-24 br/min] 20 br/min (12/10/23 12:02 PM) 20 br/min (12/10/23:38 AM) 20 br/min (12/10/23 11:23 AM) Blood Pressure [90-140/60-90 mmHg] 137/82mmHg (12/10/23 12:02 PM) 148/80mmHg *HI* (12/10/23 11: AM) Mean Arterial Pressure, Cuff [70-110 mmHg] 103 mmHg (12/10/23 11:23 AM) Weight Estimated 208.7 kg (12/10/23 11:23 AM) Body Mass Index Estimated 74.26 kg/m2 (12/10/23 11:23 AM) Height/Length Estimated 167.64 cm (12/10/23 11:23 AM) Social History Social History Type Response Smoking Status Smoking tobacco use: Former tobacco user;Former smokeless tobacco user, quit more than 30 days ago; Number of years: 15; entered on: 10/06/23 Sex Male Hospital Discharge Instructions Patient Education 12/10/2023 10:56:00 Hematuria, Adult Hematuria, Adult Hematuria is blood in the urine. Blood may be visible in the urine, or it may be identified with a test. This condition can be caused by infections of the bladder, urethra, kidney, or prostate. Otherpossible causes include: ??? Kidney stones. ??? Cancer of the urinary tract. ??? Too much calcium in the urine. ??? Conditions that are passed from parent to child (inherited conditions). ??? Exercise that requires a lot of energy. Infections can usually be treated with medicine, and a kidney stone usually will pass through your urine. If neither of these is the cause of your hematuria, more tests may be needed to identify the cause of your symptoms. It is very important to tell your health care provider about any blood in your urine, even if it ispainless or the blood stops without treatment. Blood in the urine, when it happens and then stops and then happens again, can be a symptom of a very serious condition, including cancer. There is no pain in the initial stages of many urinary cancers. Follow these instructions at home: Medicines ??? Take sigg-glt-vzafbtw and prescription medicines only as told by your health care provider. ??? If you were prescribed an antibiotic medicine, take it as told by your health care provider. Donot stop taking the antibiotic even if you start to feel better. Eating and drinking ??? Drink enough fluid to keep your urine pale yellow. It is recommended that you drink 3???4 quarts (2.8???3.8 L) a day. If you have been diagnosed with an infection, drinking cranberry juice in addition to large amounts of water is recommended. ??? Avoid caffeine, tea, and carbonated beverages. These tend to irritate the bladder. ??? Avoid alcohol because it may irritate the prostate (in males). General instructions ??? If you have been diagnosed with a kidney stone, follow your health care provider's instructionsabout straining your urine to catch the stone. ??? Empty your bladder often. Avoid holding urine for long periods of time. ??? If you are female: ??? After a bowel movement, wipe from front to back and use each piece of toilet paper only once. ??? Empty your bladder before and after sex. ??? Pay attention to any changes in your symptoms. Tell your health care provider about any changesor any new symptoms. ??? It is up to you to get the results of any tests. Ask your health care provider, or the department that is doing the test, when your results will be ready. ??? Keep all follow-up visits. This is important. Contact a health care provider if: ??? You develop back pain. ??? You have a fever or chills. ??? You have nausea or vomiting. ??? Your symptoms do not improve after 3 days. ??? Your symptoms get worse. Get help right away if: ??? You develop severe vomiting and are unable to take medicine without vomiting. ??? You develop severe pain in your back or abdomen even though you are taking medicine. ??? You pass a large amount of blood in your urine. ??? You pass blood clots in your urine. ??? You feel very weak or like you might faint. ??? You faint. Summary ??? Hematuria is blood in the urine. It has many possible causes. ??? It is very important that you tell your health care provider about any blood in your urine, even if it is painless or the blood stops without treatment. ??? Take nlwd-rqm-rhkeavs and prescription medicines only as told by your health care provider. ??? Drink enough fluid to keep your urine pale yellow. This information is not intended to replace advice given to you by your health care provider. Make sure you discuss any questions you have with your health care provider. Document Revised: 06/27/2021 Document Reviewed: 06/27/2021 ElseSift Patient Education ?? 2022 [employer] Follow Up Care 12/10/2023 11:23:47 With:Tacho Machado MD Address: [facility] [address] [place], [place] [id number]- When:1 to 2 weeks Physician Emergency department Note * Kristy Iqbal MD: PERFORM Event Display: ED Note Physician Authored Date: [id number] KAELA GRAY :1970 Age:52 years Sex:Male Visit Date:12/10/2023 Primary Care Physician: Bin Boyce MD Basic Information Time Seen: Kristy Iqbal MD / 12/10/2023 11:35 Chief Complaint Urinated blood at home. Came in via EMS. Denies pain, dysuria. No fevers, no clots. Pt denies flankpain. Reports burning sensation in upper right quadrant of abdomen. Had a US here recently looking for stones in bile duct. Has hadd gall bladder removed. History Of Present Illness: 52-year-old male with history of atrial fibrillation on??Eliquis,??CAD,??hypertension, morbid obesity, PILAR, SVT,??presents to the emergency department complaining of??blood in his urine this morning on waking up.?? The patient says that he??just peed now??and did not notice any blood.?? He does report some midepigastric pain??that has been ongoing the past few weeks,??he had an ultrasound??showing stones in his gallbladder.?? He does not have any dysuria,??urgency or frequency.?? He does not have any flank pain, he has had no fevers or chills. Physical Exam Vitals & Measurements T:??36.5?C ??(Tympanic)?? HR:??96??(Peripheral)?? RR:??20?? BP:??148/80?? SpO2:??98%?? HT:??167.64??cm?? WT:??208.7??kg??(Estimated)?? BMI:??74.26?? O2 Therapy:??Room air?? General: A&Ox3, Calm, no apparent distress, well developed, pleasant and cooperative ?? HEENT: Head ATNC. Eyes: VISHAL. Extraocular Mobility: intact and symmetrical. Conjunctiva: non-injected, anicteric, no discharge. Oral Cavity: moist. Neck: no masses, no crepitus. Lymph Nodes: no cervical lymphadenopathy? Respiratory: CTA bilaterally, no wheezing, no rales/crackles? CV: RRR, normal S1, normal S2, no murmurs, rubs or gallops ?? Abdomen : soft, non-tender, non-distended, no rebound or guarding, no hepatosplenomegaly ?? Extremities: no le swelling, warm and well-perfused, no cyanosis, capillary refill <2 seconds? Skin: no rash, no lesions, no bruising? Neuro: normal tone, normal strength in all 4 extremities, sensation intact?? Medical Decision Makin-year-old male with history of atrial fibrillation on??Eliquis,??CAD,??hypertension, morbid obesity, PILAR, SVT,??presents to the emergency department complaining of??an episode?? of hematuria this morning, which he says resolved on second urination. ?? Thorough chart review performed, nursing triage note reviewed, vitals reviewed ?? The patient is well and non toxic appearing with reassuring VS ?? Pt's presentation is concerning for??painless hematuria. No concern for painful or obstructing kidney stone. ?? UA with blood, no evidence of infection ?? f/u Urology 1-2 weeks. Discharge instructions and return precautions discussed, all questions answered. Procedure No Qualifying Data Assessment/Plan 1.??Hematuria??R31.9 Ordered: Discharge Patient, 12/10/23 11:56:00 EST, Constant Indicator ?? Patient Education Hematuria, Adult Follow Up With When Contact Information Tacho Machado MD Within 1 to 2 weeks [facility] [address] [place] [id number]- Additional Instructions: Medication Reconciliation Unchanged apixaban (Eliquis 5 mg [...] Refills: 0. ?? potassium chloride (Potassium Chloride (Zkf-Szcp-Sox 10) 10 mEq oral tablet, extended release)4 [...] ablation using fluoroscopy guidance (01/11/2021)???Cardiac catheterization (01/11/2021)???Tonsillectomy Allergies Zoloft??(Chest pain) adenosine??(Rapid heart beat) buPROPion [...] Myocardial infarction: Father and Brother. Lab Results UA Macroscopic?? LATEST RESULTS?? HISTORICAL RESULTS?? UA Color?? 12/10/23 11:33?? Pale Yellow?? 11/17/22?? Yellow?? UA Appear?? 12/10/23 11:33?? Clear?? 11/17/22?? Clear?? UA Glucose?? 12/10/23 11:33?? Negative?? 11/17/22?? Negative?? UA Bili?? 12/10/23 11:33?? Negative?? 11/17/22?? Negative?? UA Ketones?? 12/10/23 11:33?? Negative?? 11/17/22?? Negative?? UA Spec Grav?? 12/10/23 11:33?? 1.010?? 11/17/22?? 1.010?? UA Blood?? 12/10/23 11:33?? 1+ Abnormal?? 11/17/22?? 2+ Abnormal?? UA pH?? 12/10/23 11:33?? 5.5?? 11/17/22?? 7.0?? UA Protein?? 12/10/23 11:33?? Negative?? 11/17/22?? Negative?? UA Urobilinogen?? 12/10/23 11:33?? Normal?? 11/17/22?? Normal?? UA Nitrite?? 12/10/23 11:33?? Negative?? 11/17/22?? Negative?? UA Leuk Est?? 12/10/23 11:33?? Negative?? 11/17/22?? 3+ Abnormal?? UA Culture Ind?.?? 12/10/23 11:33?? Not Indicated?? 11/17/22?? Indicated? UA Microscopic?? LATEST RESULTS?? HISTORICAL RESULTS?? UA WBC?? 12/10/23 11:33?? 0-3?? 11/17/22?? 10-25 Abnormal?? UA RBC?? 12/10/23 11:33?? 3-5?? 11/17/22?? 3-5?? UA Squam Epithelial?? 12/10/23 11:33?? Rare?? 11/17/22?? Few Abnormal?? UA Mucous?? 12/10/23 11:33?? None Seen?? 11/17/22?? None Seen?? UA Bacteria?? 12/10/23 11:33?? None Seen?? 11/17/22?? Few Abnormal? Electronically Signed on 12/10/23 11:59 AM Kristy Iqbal MD Emergency department Discharge instructions * Kristy Iqbal MD: PERFORM Event Display: ED Discharge Information Authored Date: [id number] KAELA GRAY :1970 Age:52 years Sex:Male Visit Date:12/10/2023 Primary Care Physician: Bin Boyce MD Discharge Instructions We would like to thank you for allowing us to assist you with your healthcare needs. The following includes patient education materials and information regarding your injury/illness. Diagnosis from Today's Visit Hematuria Discharge Vitals Temperature??(Tympanic) 97.7 ??F (36.5 ??C) Heart Rate??(Peripheral) 96 Respiratory Rate?? 20 Blood Pressure?? 148/80?? Height?? 66.00 in (167.64 cm) Weight??(Estimated) 460.18 lb (208.7 kg) BMI?? 74.26 Allergies Zoloft??(Chest pain) adenosine??(Rapid heart beat) buPROPion gabapentin What to Do Next Instructions from Your Care Team Please follow up with Dr Machado for evaluation of blood in your urine in the next 1-2 weeks. Call the number listed here to make an appointment. Return to the ED for any new or worsening symptoms. You Need to Schedule the Following Appointments Follow Up with??Tacho Machado MD When:??Within 1 to 2 weeks Where: [facility] [address] [place] [address] Upcoming Scheduled Appointments Friday 12:40 PM EST ?? With: Suzy Hall CURING MACHINE OPERATOR Where: [facility] [address] [place] [address] Status: Confirmed Friday 10:15 AM EST ?? With: Bernarda Aguilar CURING MACHINE OPERATOR Where: [facility] [address] [place] [address] Status: Confirmed You were treated today [...] 3 Days Unchanged potassium chloride (Potassium Chloride (Jqg-Htzi-Ath 10) 10 mEq oral tablet, extended release) 4 tabs Oral (given by mouth) Every day Atrial fibrillation Unchanged torsemide (torsemide 40 mg oral tablet) 1 tab Oral (given by mouth) Every day Atrial fibrillation Education Materials Hematuria, Adult Hematuria is blood in the urine. Blood may be visible in the urine, or it may be identified with a test. This condition can be caused by infections of the bladder, urethra, kidney, or prostate. Otherpossible causes include: ? Kidney stones. ? Cancer of the urinary tract. ? Too much calcium in the urine. ? Conditions that are passed from parent to child (inherited conditions). ? Exercise that requires a lot of energy. Infections can usually be treated with medicine, and a kidney stone usually will pass through your urine. If neither of these is the cause of your hematuria, more tests may be needed to identify the cause of your symptoms. It is very important to tell your health care provider about any blood in your urine, even if it ispainless or the blood stops without treatment. Blood in the urine, when it happens and then stops and then happens again, can be a symptom of a very serious condition, including cancer. There is no pain in the initial stages of many urinary cancers. Follow these instructions at home: Medicines ? Take lqfc-dcq-fpqytnj and prescription medicines only as told by your health care provider. ? If you were prescribed an antibiotic medicine, take it as told by your health care provider. Do notstop taking the antibiotic even if you start to feel better. Eating and drinking ? Drink enough fluid to keep your urine pale yellow. It is recommended that you drink 3???4 quarts (2.8???3.8 L) a day. If you have been diagnosed with an infection, drinking cranberry juice in addition to large amounts of water is recommended. ? Avoid caffeine, tea, and carbonated beverages. These tend to irritate the bladder. ? Avoid alcohol because it may irritate the prostate (in males). General instructions ? If you have been diagnosed with a kidney stone, follow your health care provider's instructions about straining your urine to catch the stone. ? Empty your bladder often. Avoid holding urine for long periods of time. ? If you are female: ? After a bowel movement, wipe from front to back and use each piece of toilet paper only once. ? Empty your bladder before and after sex. ? Pay attention to any changes in your symptoms. Tell your health care provider about any changes or any new symptoms. ? It is up to you to get the results of any tests. Ask your health care provider, or the department that is doing the test, when your results will be ready. ? Keep all follow-up visits. This is important. Contact a health care provider if: ? You develop back pain. ? You have a fever or chills. ? You have nausea or vomiting. ? Your symptoms do not improve after 3 days. ? Your symptoms get worse. Get help right away if: ? You develop severe vomiting and are unable to take medicine without vomiting. ? You develop severe pain in your back or abdomen even though you are taking medicine. ? You pass a large amount of blood in your urine. ? You pass blood clots in your urine. ? You feel very weak or like you might faint. ? You faint. Summary ? Hematuria is blood in the urine. It has many possible causes. ? It is very important that you tell your health care provider about any blood in your urine, even ifit is painless or the blood stops without treatment. ? Take glkc-gmf-phohfzn and prescription medicines only as told by your health care provider. ? Drink enough fluid to keep your urine pale yellow. This information is not intended to replace advice given to you by your health care provider. Make sure you discuss any questions you have with your health care provider. Document Revised: 06/27/2021 Document Reviewed: 06/27/2021 [employer] Patient Education ?? 2022 [employer]. Tests Performed Lab Test Name Test Result Date/Time UA Color Pale Yello 12/10/2023 11:33 EST UA Appear CLEAR. 12/10/2023 11:33 EST UA Glucose NEGATIVE 12/10/2023 11:33 EST UA Bili NEGATIVE 12/10/2023 11:33 EST UA Ketones NEGATIVE 12/10/2023 11:33 EST UA Spec Grav 1.010 12/10/2023 11:33 EST UA Blood 1+ 12/10/2023 11:33 EST UA pH 5.5 12/10/2023 11:33 EST UA Protein NEGATIVE 12/10/2023 11:33 EST UA Urobilinogen 0.2 Uro 12/10/2023 11:33 EST UA Nitrite NEGATIVE 12/10/2023 11:33 EST UA Leuk Est NEGATIVE 12/10/2023 11:33 EST UA Culture Ind?. Not Indicated 12/10/2023 11:33 EST UA WBC 0-3 12/10/2023 11:33 EST UA RBC 3-5 12/10/2023 11:33 EST UA Squam Epithelial Rare 12/10/2023 11:33 EST UA Mucous None Seen 12/10/2023 11:33 EST UA Bacteria None Seen 12/10/2023 11:33 EST Patient/Saturator Signature Patient Name:KAELA GRAY I have received this information and my questions have been answered. Patient/Saturator Name: Patient/Saturator Signature: Relationship to Patient: Witness Name/Signature: Date: Electronically Signed on: 12/10/2023 11:57 ESTSigned by:EDWARD Patient Care team information Care Team Personnel Name: Suresh Roth MD Position: Physician Member Role: Informed Provider Address: Address: [address] [place] [address], [place] [address]- Name: Bin Boyce MD Position: No Access Member Role: Primary Care Physician Address: Address: [facility] [address] [place] [address]- Care Team Related Persons Name: MASON GRAY Address: Home [address] [facility], [id number]
[2023-12-17 20:18] LABS: Abs Immature Grans 0.04 10^3/uL (0.0-0.06); Absolute Basophil Count 0.06 10^3/uL (0.0-0.2); Absolute Eosinophil Count 0.26 10^3/uL (0.0-0.7); Absolute Lymphocyte Count 2.21 10^3/uL (1.2-3.4); Absolute Monocyte Count 0.72 10^3/uL (0.1-0.8); Absolute Neutrophil Count 5.13 10^3/uL (1.2-6.7); Basophils % 0.7; Eosinophils % 3.1; HCT 39.1 % (40.0-50.0); HGB 12.7 g/dL (13.5-17.5); Immature Grans % 0.5; Lymphocytes % 26.2; MCH 27.8 pg (27.0-33.0); MCHC 32.5 % (32.0-36.0); MCV 86 fL (80-95); MPV 10.5 fL (8.0-11.0); Monocytes % 8.6; Neutrophils % 60.9; Platelet Count 171 10^3/uL (130-400); RBC 4.57 10^6/uL (4.36-5.78); RDW 14.1 % (11.8-14.1); RDW-SD 44.1 fL; WBC 8.42 10^3/uL (4.4-10.8)
[2023-12-17 20:31] LABS: Bacteria Rare HPF (Negative); Epithelial Cells Few HPF (Negative); RBC 0-2 HPF (0-2); WBC 0-2 HPF (0-5)
[2023-12-17 20:32] LABS: C & S Indicated? C&S Done As Ordered; Crystals Negative HPF (Negative); Mucus Negative (Negative)
[2023-12-17 20:35] LABS: ALT 51 U/L (16-63); AST 42 U/L (15-37); Albumin 3.1 g/dL (3.4-5.0); Alkaline Phosphatase 65 U/L (46-116); Anion Gap 7.1 mmol/L (3-11); BUN 8 mg/dL (7-18); Bilirubin, Total 0.5 mg/dL (0.2-1.0); CO2 27.9 mmol/L (21.0-32.0); CREATININE 0.9 mg/dL (0.70-1.30); Chloride 105 mmol/L (98-107); Estimated GFR 101.49 (mL/min/1.73m2); Glucose 124 mg/dL (74-106); Sodium 140 mmol/L (136-145); Total Protein 7.2 g/dL (6.4-8.2)
[2023-12-17 20:38] LABS: Hemoglobin A1C 5.7 % (<5.7)
== END 2023-12-17 18:13 | disposition home or self-care (01) ==
LOC: NCHCN 18:12
PROVIDERS: PCP Internal Medicine; Visit Provider Physician Assistant
DX: I10 Essential (primary) hypertension (principal)
CPT/HCPCS: 80053; 81015; 83036; 85025; 87086

== ENCOUNTER 2024-05-17 14:25 | Outpatient (REF) | payer MEDICAID, SELFPAY ==
--- OUTSIDE RECORDS SUMMARY | 2024-05-17 14:28 | XMS_ITS | Continuity of Care Document ---
Author Name Unknown Organization [facility] Address [address] [place] [address] Care Team Providers Care Lump Roller Name Role Phone Primeau Bin MOTA Primary Care Physician Encounter [facility] [id number] Date(s): 04/17/24 - 04/17/[address] [address] Encounter Diagnosis Hematuria(Discharge Diagnosis) - 04/17/24 Discharge Disposition: Home or Self Care Attending Physician: Bin Alcantar MD Admitting Physician: Bin Alcantar MD Allergies, Adverse Reactions, Alerts Substance Reaction Severity Status adenosine 1 Rapid heart beat Severe Active gabapentin Unknown Active buPROPion Unknown Active Zoloft Chest pain Severe Active 1PT had an adverse reaction HR went up to 250%27s Assessment and Plan Extracted from: Title:Clinical Document Author:Yaquelin Salas te:04/17/24 Diagnosis: 1. Hematuria Comment: Diagnosis: Urinary symptoms Comment: Extracted from: Title:ED Provider Note Author:Carlos Elizabeth MD Date:04/17/24 Assessment/Plan 1.??Hematuria??R31.9 Ordered: cephalexin 500 mg oral capsule, 500 mg = 1 cap, Oral, QID, X 7 days, # 28 cap, 0 Refill(s), 04/24/24 17:29:00 EDT, Pharmacy: [id number], 168, cm, 04/09/24 22:09:00 EDT, Height, 210.92, kg, 04/09/24 22:12:00 EDT, Weight Dosing Discharge Patient, 04/17/24 17:29:00 EDT, Home Independently, Constant Indicator ?? Patient Education Hematuria, Adult Follow Up With When Contact Information [facility], Bin Moe MD Within 1 to [address] [phone] ?? Additional Instructions: Future Appointments Diagnostic Tests Pending * Urine Culture 04/17/24 Future Scheduled Tests Laboratory* Basic Metabolic Panel 11/06/23 Functional Status 04/17/24 Family Member Travel History No recent t ravel Recent Travel History No recent travel Other exposure to Infectious Disease Non e Medications aspirin 81 mg oral capsule 81 mg = 1 cap, Oral, Daily, do not exceed 48 capsules in 24 hours, # 30 cap, 0 Refill(s) Start Date: 09/30/23 Status: Ordered cephalexin 500 mg oral capsule 500 mg = 1 cap, Oral, QID, X 7 days, # 28 cap, 0 Refill(s), 04/24/24 4:29:00 PM CDT, Pharmacy: [id number], 168, cm, 04/09/24 22:09:00 EDT, Height, 210.92, kg, 04/09/24 22:12:00 EDT, Weight Dosing Start Date: 04/17/24 Stop Date: 04/24/24 Status: Ordered clonazePAM 1 mg oral tablet [...] # 180 tab, 4 Refill(s), Pharmacy: [id number], 168, cm, 11/17/22 13:46:00 EST, Height/Length Dosing, 210, kg, 11/17/22 13:46:00 EST, Weight Dosing Start Date: 06/24/23 Stop Date: 09/16/24 Status: Ordered Motegrity 0 Refill(s) Start Date: 03/16/24 Status: Ordered neomycin 500 mg =, BID, 0 Refill(s) Start Date: 04/03/24 Status: Ordered Potassium Chloride (Obi-Dlio-Lhf 10) 10 mEq oral tablet, extended release 4 tabs, Oral, Daily, # 360 tab, 3 Refill(s), Pharmacy: [id number], 167.64, cm, 10/06/23 12:44:00 EST, Height, 204.12, kg, 10/06/23 12:54:00 EST, Weight Dosing Start Date: 10/31/23 Status: Ordered torsemide 40 mg oral tablet 40 mg = 1 tab, Oral, Daily, # 90 tab, 4 Refill(s), Pharmacy: [id number], 167.64, cm, 09/30/23 13:19:00 EST, Height, 206.6, kg, 09/30/23 13:30:00 EST, Weight Dosing Start Date: 09/30/23 Status: Ordered Trulicity Pen 3 mg/0.5 mL subcutaneous solution 3 mg = 0.5 mL, Subcutaneous, every week, rotate injection sites, # 2 mL, 0 Refill(s) Start Date: 09/30/23 Status: Ordered Mental Status 04/17/24 Eye Opening Response Emma Spontaneous ly Best Verbal Response Emma Oriented Best Motor Response Emma Obeys comman ds Protivin Coma Score 15 Problem List Condition Confirmation Course Effective Dates Status H ealth Status Informant Atrial fibrillation Confirmed 11/28/20 Active Coronary arteriosclerosis Confirmed 11/28/20 Active Epigastric pain Confirmed Active Hypertensive disorder Confirmed 11/28/20 Active Nocturnal dyspnea Confirmed 08/11/20 Active Obstructive sleep apnea syndrome 1 Confirmed Active Supraventricular tachycardia Confirmed 11/28/20 Active 1CPAP 7-3 cm [place] Procedures Procedure Date Related Diagnosis Body Site Status Cardiac ablation using fluor oscopy guidance 1 01/10/21 Completed Cardiac catheterization 2 01/10/21 Completed Tonsillectomy Completed Results Laboratory List Name Date Urinalysis Microscopic 04/17/24 Urinalysis with Micro if Indicated and C ulture if Indicated 04/17/24 Most recent to oldest [Reference Range]: 1 UA Color Pale Yellow (04/17/24 4:53 PM) UA WBC [0-3] 3-5 *ABN* (04/17/24 4:53 PM) UA Urobilinogen Normal (04/17/24 4:53 PM) UA Bili [Negative] Negative (04/17/24 4:53 PM) UA Ketones Negative (04/17/24 4:53 PM) UA RBC [0-2] 50-100 (04/17/24 4:53 PM) UA Leuk Est 1+ *ABN* (04/17/24 4:53 PM) UA Nitrite Negative (04/17/24 4:53 PM) UA Glucose [Negative] Negative (04/17/24 4:53 PM) UA Bacteria Rare /HPF (04/17/24 4:53 PM) UA Protein Trace *ABN* (04/17/24 4:53 PM) UA Blood 3+ *ABN* (04/17/24 4:53 PM) UA Mucous Rare /HPF *ABN* (04/17/24 4:53 PM) UA Spec Grav 1.020 *NA* (04/17/24 4:53 PM) UA Squam Epithelial [None Seen] Few *ABN* (04/17/24 4:53 PM) UA pH 6.5 *NA* (04/17/24 4:53 PM) UA Appear Hazy *ABN* (04/17/24 4:53 PM) UA Culture Ind?. Indicated (04/17/24 4:53 PM) Vital Signs Most recent to oldest [Reference Range]: 1 Temperature Temporal Artery [36-38 Deg C ] 35.9 Deg C *LOW* (04/17/24 4:43 PM) Peripheral Pulse Rate [60-100 bpm] 64 bp m (04/17/24 4:43 PM) Respiratory Rate [12-24 br/min] 18 br/mi n (04/17/24 4:43 PM) Blood Pressure [90-140/60-90 mmHg] 158/7 5mmHg *HI* (04/17/24 4:43 PM) Mean Arterial Pressure, Cuff [65-140 mmH g] 103 mmHg (04/17/24 4:43 PM) Weight Estimated 208.6 kg (04/17/24 4:43 PM) Body Mass Index Estimated 73.91 kg/m2 (04/17/24 4:43 PM) Height/Length Estimated 168 cm (04/17/24 4:43 PM) Social History Social History Type Response Smoking Status Smoking tobacco use: Former tobacco user;Former smokeless tobacco user, quit more than 30 days ago; Number of years: 15; entered on: 10/06/23 Sex Male Hospital Discharge Instructions Patient Education 04/17/2024 16:29:57 Hematuria, Adult Hematuria, Adult Hematuria is blood [...] these instructions at home: Medicines ??? Take wmav-jkf-irqwbqv and prescription medicines only as told by [...] the blood stops without treatment. ??? Take wmhy-oyg-aopgbgv and prescription medicines only as told by your health care provider. ??? Drink enough fluid to keep your urine pale yellow. This information is not intended to replace advice given to you by your health care provider. Make sure you discuss any questions you have with your health care provider. Document Revised: 06/27/2021 Document Reviewed: 06/27/2021 Elsevier Patient Education ?? 2022 [employer] Follow Up Care 04/17/2024 16:41:54 With:[facility]ie [facility], Bin Moe MD Address: [address] [phone] When:1 to 2 weeks Physician Emergency department Note * Carlos Elizabeth MD: PERFORM Event Display: ED Note Physician Authored Date: [id number] KAELA GRAY :1970 Age:53 years Sex:Male Visit Date:04/17/2024 Primary Care Physician: Gracie NANCE, Bin Moe MD Basic Information Time Seen: Carlos Elizabeth MD / 04/17/2024 16:52 Chief Complaint I had a right uretral stent placed on the . I have been peeing straight blood ever since but then I stopped peeing blood two days ago, but now my urine is smelly and it's dark and i'm in pain again History Of Present Illness: 53-year-old male past medical history SVT, obesity, hypertension, CAD, atrial fibrillation, renal stones status post??right-sided ureteral stent??placed on the presents with??foul-smelling urineand??towards the end of his void he gets renal pain with this.?? Otherwise no fevers abdominal painnausea vomiting, overall feeling better and states his hematuria has improved since the procedure. Review of Systems: Dark urine, odorous urine, flank pain Physical Exam Vitals & Measurements T:??35.9?C ??(Temporal Artery)?? HR:??64??(Peripheral)?? RR:??18?? BP:??158/75?? SpO2:??100%?? HT:??168??cm?? WT:??208.6??kg??(Estimated)?? BMI:??73.91?? Pain Score:??5?? O2 Therapy:??Room air?? Patient clinically looks very well.?No reproducible abdominal pain on exam Medical Decision Makin-year-old male presents with??foul-smelling urine and dark urine. ??Patient states he just had a right ureteral stent placed for a??renal stone down at [facility] on the . ??He states his pain overall has been well-controlled and improving but he??has started to develop some??pain in the right??flank at the end of his void, and also has noticed darker urine and foul-smelling urine??that he reports is consistent with prior urinary tract infections, and he is quite??nervous that this??may berelated to an infection after his procedure.?? He does not have any outright dysuria per se and no abdominal pain, denies any fevers. ??Vitals are stable.?? His urine sample??is hazy, has +3 blood, 50-100 RBCs, 3-5 WBCs, rare bacteria, positive for leukocyte esterase. ??Overall, this more likely reflects hematuria and not an acute infection, however??given that he would like to err on the side ofcaution and be treated until the culture definitively comes back, we had a shared decision-making conversation to??put him on Keflex and await the culture results, in an effort to avoid a postprocedural??infection. ??Patient was placed on Keflex. ??Given return precautions the ED.?? Will be in touch with the patient??once the urine??culture comes back.?? Discharged stable condition return precautions ED, follow-up with urology. Procedure No Qualifying Data Assessment/Plan 1.??Hematuria??R31.9 Ordered: cephalexin 500 mg oral capsule, 500 mg = 1 cap, Oral, QID, X 7 days, # 28 cap, 0 Refill(s), 04/24/24 17:29:00 EDT, Pharmacy: [id number], 168, cm, 04/09/24 22:09:00 EDT, Height, 210.92, kg,04/09/24 22:12:00 EDT, Weight Dosing Discharge Patient, 04/17/24 17:29:00 EDT, Home Independently, Constant Indicator ?? Patient Education Hematuria, Adult Follow Up With When Contact Information [facility], Bin Moe MD Within 1 to [address] [phone] Additional Instructions: Medication Reconciliation New Prescription cephalexin (cephalexin 500 mg oral capsule)1 Capsules Oral (given by mouth) 4 times a day for 7 Days. Refills: 0. ?? Unchanged apixaban (Eliquis 5 mg oral tablet)1 [...] day for 90 Days. Refills: 4. ?? [id number] Milligrams 2 times a day. ?? potassium chloride (Potassium Chloride (Lus-Leul-God 10) 10 mEq oral tablet, extended release)4 tabs Oral (given by mouth) every day. Refills: 3. ?? prucalopride (Motegrity) ?? torsemide (torsemide 40 mg oral tablet)1 tab Oral (given by mouth) every day. Refills: 4. Problem List/Past Medical History Ongoing Atrial fibrillation Coronary arteriosclerosis Epigastric pain Hypertensive disorder Morbid obesity Nocturnal dyspnea Obstructive sleep apnea syndrome Supraventricular tachycardia Historical No qualifying data Procedure/Surgical History ???Cardiac ablation using fluoroscopy guidance (01/11/2021)???Cardiac catheterization (01/11/2021)???Tonsillectomy Allergies Zoloft??(Chest pain) adenosine??(Rapid heart beat) buPROPion gabapentin Social History Alcohol Never Electronic Cigarette/Vaping Electronic Cigarette Use: Former use, quit more than 90 days ago. Substance Use Never Tobacco Former tobacco user Tobacco Use:. 14 year(s). Former smokeless tobacco user, quit more than 30 daysago Smokeless Tobacco use:. Family History Diabetes mellitus: Brother. Hyperlipidemia: Father and Brother. Hypertensive disorder: Father and Brother. Myocardial infarction: Father and Brother. Lab Results UA Macroscopic?? LATEST RESULTS?? HISTORICAL RESULTS?? UA Color?? 04/17/24 16:53?? Pale Yellow?? 04/09/24?? Dark Yellow?? UA Appear?? 04/17/24 16:53?? Hazy Abnormal?? 04/09/24?? Hazy Abnormal?? UA Glucose?? 04/17/24 16:53?? Negative?? 04/09/24?? Negative?? UA Bili?? 04/17/24 16:53?? Negative?? 04/09/24?? 1+ Abnormal?? UA Ketones?? 04/17/24 16:53?? Negative?? 04/09/24?? Negative?? UA Spec Grav?? 04/17/24 16:53?? 1.020?? 04/09/24?? 1.015?? UA Blood?? 04/17/24 16:53?? 3+ Abnormal?? 04/09/24?? 3+ Abnormal?? UA pH?? 04/17/24 16:53?? 6.5?? 04/09/24?? 7.0?? UA Protein?? 04/17/24 16:53?? Trace Abnormal?? 04/09/24?? 2+ Abnormal?? UA Urobilinogen?? 04/17/24 16:53?? Normal?? 04/09/24?? Normal?? UA Nitrite?? 04/17/24 16:53?? Negative?? 04/09/24?? Negative?? UA Leuk Est?? 04/17/24 16:53?? 1+ Abnormal?? 04/09/24?? Trace Abnormal?? UA Culture Ind?.?? 04/17/24 16:53?? Indicated?? 04/09/24?? Indicated? UA Microscopic?? LATEST RESULTS?? HISTORICAL RESULTS?? UA WBC?? 04/17/24 16:53?? 3-5 Abnormal?? 04/09/24?? 5-10 Abnormal?? UA RBC?? 04/17/24 16:53?? 50-100?? 04/09/24?? >100?? UA Squam Epithelial?? 04/17/24 16:53?? Few Abnormal?? 04/09/24?? Rare?? UA Mucous?? 04/17/24 16:53?? Rare Abnormal?? 04/09/24?? None Seen?? UA Bacteria?? 04/17/24 16:53?? Rare?? 04/09/24?? Few Abnormal? Electronically Signed on 04/17/2024 17:31 EDT Carlos Elizabeth MD Emergency department Discharge instructions * Carlos Elizabeth MD: PERFORM Event Display: ED Discharge Information Authored Date: [id number] KAELA GRAY :1970 Age:53 years Sex:Male Visit Date:04/17/2024 Primary Care Physician: Bin Boyce MD Discharge Instructions We would like to thank you for allowing us to assist you with your healthcare needs. The following includes patient education materials and information regarding your injury/illness. Diagnosis from Today's Visit Hematuria Discharge Vitals Temperature??(Temporal Artery) 96.6 ??F (35.9 ??C) Heart Rate??(Peripheral) 64 Respiratory Rate?? 18 Blood Pressure?? 158/75?? SpO2?? 100% Height?? 66.14 in (168 cm) Weight??(Estimated) 459.96 lb (208.6 kg) BMI?? 73.91 Allergies Zoloft??(Chest pain) adenosine??(Rapid heart beat) buPROPion gabapentin What to Do Next Instructions from Your Care Team You were seen in the emergency department today for??concern for urinary tract infection. ??Your urine sample showed microscopic blood, this less likely represents an infection, however given??your overall concerns, we will treat as if there is an infection present for the next??couple of days until your urine culture results come back, at which point you may not need to continue the rest of the antibiotics if the culture is negative. ??Kmak to the ER with any worsening symptoms otherwise follow-up with your urologist??as indicated??after your procedure. You Need to Schedule the Following Appointments Follow Up with??Bin Boyce MD When:??Within 1 to 2 weeks Where: [facility] [address] [place] [phone] Upcoming Scheduled Appointments Friday 10:15 AM EST ?? With: Bernarda Aguilar BALLOON DIPPER Where: [facility] [address] [place] [phone] Status: Confirmed You were treated today on [...] Much When Why Instructions Next Dose New cephalexin (cephalexin 500 mg oral capsule) 1 Capsules Oral (given by mouth) 4 times a day Hematuria Duration: 7 Days Pickup at [facility] Unchanged apixaban (Eliquis 5 mg oral tablet) [...] a day Afib Duration: 90 Days Unchanged neomycin 500 Milligrams 2 times a day Unchanged potassium chloride (Potassium Chloride (Fiv-Cwdm-Smu 10) 10 mEq oral tablet, extended release) 4 tabs Oral (given by mouth) Every day Atrial fibrillation Unchanged prucalopride (Motegrity) Unchanged torsemide (torsemide 40 mg oral tablet) 1 tab Oral (given by mouth) Every day Atrial fibrillation Pharmacy Information [facility]: [address] [place] [address] [phone] Education Materials Hematuria, Adult Hematuria is blood [...] these instructions at home: Medicines ? Take sovo-tof-tbrtrzf and prescription medicines only as told by [...] the blood stops without treatment. ? Take ynrl-bxz-tzvotly and prescription medicines only as told by your health care provider. ? Drink enough fluid to keep your urine pale yellow. This information is not intended to replace advice given to you by your health care provider. Make sure you discuss any questions you have with your health care provider. Document Revised: 06/27/2021 Document Reviewed: 06/27/2021 Elsevier Patient Education ?? 2022 [employer] Tests Performed Lab Test Name Test Result Date/Time UA Color Pale Yello 04/17/2024 16:53 EDT UA Appear Hazy- Clinitek 04/17/2024 16:53 EDT UA Glucose NEGATIVE 04/17/2024 16:53 EDT UA Bili NEGATIVE 04/17/2024 16:53 EDT UA Ketones NEGATIVE 04/17/2024 16:53 EDT UA Spec Grav 1.020 04/17/2024 16:53 EDT UA Blood 3+ 04/17/2024 16:53 EDT UA pH 6.5 04/17/2024 16:53 EDT UA Protein TRACE. 04/17/2024 16:53 EDT UA Urobilinogen 0.2 Uro 04/17/2024 16:53 EDT UA Nitrite NEGATIVE 04/17/2024 16:53 EDT UA Leuk Est 1+ 04/17/2024 16:53 EDT UA Culture Ind?. Indicated 04/17/2024 16:53 EDT UA WBC 3-5 04/17/2024 16:53 EDT UA RBC 50-100 04/17/2024 16:53 EDT UA Squam Epithelial Few 04/17/2024 16:53 EDT UA Mucous Rare 04/17/2024 16:53 EDT UA Bacteria Rare 04/17/2024 16:53 EDT Patient/Nurse Reviewer Signature Patient Name:ISAAC KAELA I have received this information and my questions have been answered. Patient/Nurse Reviewer Name: Patient/Nurse Reviewer Signature: Relationship to Patient: Witness Name/Signature: Date: Electronically Signed on: 04/17/2024 17:31 EDTSigned by:[facility] Discharge summary * Yaquelin Salas: PERFORM Event Display: Discharge Note Authored Date: * Yaquelin Salas: PERFORM Event Display: Discharge Note Authored Date: Diagnosis: 1. Hematuria Comment: Diagnosis: Urinary symptoms Comment: Electronically Signed on 04/17/2024 17:36 EDT Yaquelin Salas Patient Care team information Care Team Personnel Name: Bin Boyce MD Position: No Access Member Role: Informed Provider Address: Address: [address] [address] Care Team Related Persons Name: MASON GRAY Address: Home [address] [facility], [phone]
--- OUTSIDE RECORDS SUMMARY | 2024-05-17 14:29 | XMS_ITS | Continuity of Care Document ---
Author Name Unknown Organization [facility] Address [address] [place] [address] Care Team Providers Care Services Tech Name Role Phone Bin Boyce Primary Care Physician Encounter [facility] Date(s): 12/24/23 - 12/24/[address] [address] Encounter Diagnosis Atypical chest pain(Discharge Diagnosis) - 12/24/23 Discharge Disposition: Home or Self Care Attending Physician: Fadi Penny MD Admitting Physician: Fadi Penny MD Allergies, Adverse Reactions, Alerts Substance Reaction Severity Status adenosine 1 Rapid heart beat Severe Active gabapentin Unknown Active buPROPion Unknown Active Zoloft Chest pain Severe Active 1PT had an adverse reaction HR went up to 250%27s Assessment and Plan Extracted from: Title:ED Provider Note Author:Fadi Penny MD Date:12/24/23 Assessment/Plan 1.??Atypical chest pain??R07.89 Orders: Cardiac Monitoring, 12/24/23 1:08:00 EST, May be off for activity: No XR Chest 2 Views, 12/24/23 1:08:00 EST, Stat, Reason: CHEST PAIN, Reason: CHEST PAIN, Exam to be performed outside organization? Patient Education Nonspecific Chest Pain, Adult Follow Up With When Contact Information Bin Boyce MD Within 1 week, only if needed [facility] [address] [place] [address]- [phone] ?? Additional Instructions: Future Appointments Future Scheduled Tests Laboratory* Basic Metabolic Panel 11/06/23 Functional Status 12/24/23 Family Member Travel History No recent t [...] Pharmacy: [id number], 168, cm, 11/17/22 13:46:00 EST, Height/Length Dosing, 210, kg, 11/17/22 13:46:00 EST, Weight Dosing Start Date: 06/24/23 Stop Date: 09/16/24 Status: Ordered Potassium Chloride (Bjb-Awjd-Cbj 10) 10 mEq oral tablet, extended release 4 tabs, Oral, Daily, # 360 tab, 3 Refill(s), Pharmacy: [facility], 167.64, cm, 10/06/23 12:44:00 EST, Height, 204.12, kg, 10/06/23 12:54:00 EST, Weight Dosing Start Date: 10/31/23 Status: Ordered Pyridium 200 mg oral tablet 200 mg = 1 tab, Oral, TID(PC), # 9 tab, 0 Refill(s), Pharmacy: [facility], 168, cm, 11/17/22 13:46:00 EST, Height/Length Dosing, 210, kg, 11/17/22 13:46:00 EST, Weight Dosing Start Date: 11/17/22 Stop Date: 11/20/22 Status: Ordered torsemide 40 mg oral tablet 40 mg = 1 tab, Oral, Daily, # 90 tab, 4 Refill(s), Pharmacy: [facility]156, 167.64, cm, 09/30/23 13:19:00 EST, Height, 206.6, kg, 09/30/23 13:30:00 EST, Weight Dosing Start Date: 09/30/23 Status: Ordered Trulicity Pen 3 mg/0.5 mL subcutaneous solution 3 mg = 0.5 mL, Subcutaneous, every week, rotate injection sites, # 2 mL, 0 Refill(s) Start Date: 09/30/23 Status: Ordered Mental Status 12/24/23 Eye Opening Response Converse Spontaneous ly Best Verbal Response Converse Oriented Best Motor Response Converse Obeys comman ds Emma Coma Score 15 Problem List Condition Confirmation Course Effective Dates Status H ealth Status Informant Atrial fibrillation Confirmed 11/28/20 Active Coronary arteriosclerosis Confirmed 11/28/20 Active Epigastric pain Confirmed Active Hypertensive disorder Confirmed 11/28/20 Active Nocturnal dyspnea Confirmed 08/11/20 Active Obstructive sleep apnea syndrome 1 Confirmed Active Supraventricular tachycardia Confirmed 11/28/20 Active 1CPAP 7-3 cm [place]/Adapt Procedures Procedure Date Related Diagnosis Body Site Status Cardiac ablation using fluor oscopy guidance 1 01/10/21 Completed Cardiac catheterization 2 01/10/21 Completed Tonsillectomy Completed Results Laboratory List Name Date Troponin-I 12/24/23 Automated Diff 12/24/23 CBC w/ Diff 12/24/23 Comprehensive Metabolic Panel (CMP) 12/24 Lipase Level 12/24/23 Troponin-I 12/24/23 Most recent to oldest [Reference Range]: 1 2 WBC [5.0-10.0 x10^3/mcL] 8.9 x10^3/mcL (12/24/23 1:06 AM) RBC [4.6-6.0 x10^6/mcL] 4.6 x10^6/mcL (12/24/23 1:06 AM) Neutro Auto [40.0-75.0 %] 59.3 % (12/24/23 1:06 AM) Lymph Auto [20.0-50.0 %] 30.0 % (12/24/23 1:06 AM) Kern Auto [2.0-15.0 %] 7.0 % (12/24/23 1:06 AM) Basophil Auto [0.0-1.0 %] 0.6 % (12/24/23 1:06 AM) BUN [7-18 mg/dL] 8 mg/dL (12/24/23 1:06 AM) Glucose Level [74-106 mg/dL] 114 mg/dL *HI* (12/24/23 1:06 AM) Potassium Level [3.5-5.1 mmol/L] 3.7 mmo l/L (12/24/23 1:06 AM) MCV [80.0-96.0 fL] 86.7 fL (12/24/23 1:06 AM) AST [15-37 unit/L] 26 unit/L (12/24/23 1:06 AM) ALT [16-63 unit/L] 34 unit/L (12/24/23 1:06 AM) MCHC [31.0-35.0 g/dL] 32.6 g/dL (12/24/23 1:06 AM) Troponin-I [0.0-76.2 pg/mL] 63.9 pg/mL (12/24/23 2:45 AM) 59.3 pg/mL (12/24/23 1:06 AM) Sodium Level [136-145 mmol/L] 140 mmol/L (12/24/23 1:06 AM) Hct [41.0-51.0 %] 39.6 % *LOW* (12/24/23 1:06 AM) Lipase Level [16-77 unit/L] 31 unit/L 1 (12/24/23 1:06 AM) Calcium Level [8.5-10.1 mg/dL] 9.2 mg/dL (12/24/23 1:06 AM) Albumin Level [3.4-5.0 g/dL] 3.1 g/dL *LOW* (12/24/23 1:06 AM) Protein Total [6.4-8.2 g/dL] 7.2 g/dL (12/24/23 1:06 AM) MCH [26.0-32.0 pg] 28.2 pg (12/24/23 1:06 AM) Neutro Absolute 5.3 x10^3/mcL *NA* (12/24/23 1:06 AM) Bilirubin Total [0.2-1.0 mg/dL] 0.5 mg/d L (12/24/23 1:06 AM) Hgb [14.0-18.0 g/dL] 12.9 g/dL *LOW* (12/24/23 1:06 AM) Alk Phos [46-146 unit/L] 69 unit/L (12/24/23 1:06 AM) Platelets [130-450 x10^3/mcL] 176 x10^3/ mcL (12/24/23 1:06 AM) CO2 [21-32 mmol/L] 28 mmol/L (12/24/23 1:06 AM) eGFR Non-AA [>=60] 91 (12/24/23 1:06 AM) eGFR AA [>=60] 91 (12/24/23 1:06 AM) Chloride Level [98-107 mmol/L] 104 mmol/ L (12/24/23 1:06 AM) RDW-CV [11.5-14.5 %] 14.4 % (12/24/23 1:06 AM) Imm Gran Auto [0.0-0.9 %] 0.7 % (12/24/23 1:06 AM) Slide Review Not Indicated (12/24/23 1:06 AM) Creatinine Level [0.70-1.30 mg/dL] 0.99 mg/dL (12/24/23 1:06 AM) Eos, Auto [1.0-6.0 %] 2.4 % (12/24/23 1:06 AM) 1Interpretive Data: Effective 08/29/22, [facility] has switched to a revised Lipase test.Note new ReferenceRange. Vital Signs Most recent to oldest [Reference Range]: 1 2 3 Temperature Temporal Artery [36-38 Deg C] 36.9 Deg C (12/24/23 12:59 AM) Peripheral Pulse Rate [60-100 bpm] 60 bpm (12/24/23 3:03 AM) 79 bpm (12/24/23 2:33 AM) 80 bpm (12/24/23 2:04 AM) Heart Rate Monitored [60-100 bpm] 60 bpm (12/24/23 3:03 AM) 80 bpm (12/24/23 2:33 AM) 73 bpm (12/24/23 2:04 AM) Respiratory Rate [12-24 br/min] 21 br/min (12/24/23 3:03 AM) 19 br/min (12/24/23 2:33 AM) 23 br/min (12/24/23 2:04 AM) Blood Pressure [90-140/60-90 mmHg] 106/58mmHg (12/24/23 3:03 AM) 135/64mmHg (12/24/23 2:33 AM) 123/60mmHg (12/24/23 2:04 AM) Mean Arterial Pressure, Cuff [70-110 mmHg] 74 mmHg (12/24/23 3:03 AM) 88 mmHg (12/24/23:33 AM) 81 mmHg (12/24/23 2:04 AM) Weight 220.2 kg (12/24/23 12:59 AM) Weight Dosing 220.200 kg (12/24/23 12:59 AM) Body Mass Index Estimated 78.35 kg/m2 (12/24/23 12:59 AM) Height/Length Estimated 167.64 cm (12/24/23 12:59 AM) Social History Social History Type Response Smoking Status Smoking tobacco use: Former tobacco user;Former smokeless tobacco user, quit more than 30 days ago; Number of years: 15; entered on: 10/06/23 Sex Male Hospital Discharge Instructions Patient Education 12/24/2023 02:26:02 Nonspecific Chest Pain, Adult Nonspecific Chest Pain, Adult Chest pain is an uncomfortable, tight, or painful feeling in the chest. The pain can feel like a crushing, aching, or squeezing pressure. A person can feel a burning or tingling sensation. Chest paincan also be felt in your back, neck, jaw, shoulder, or arm. This pain can be worse when you move, sneeze, or take a deep breath. Chest pain can be caused by a condition that is life-threatening. This must be treated right away. It can also be caused by something that is not life- threatening. If you have chest pain, it can be hard to know the difference, so it is important to get help right away to make sure that you do not have a serious condition. Some life-threatening causes of chest pain include: ??? Heart attack. ??? A tear in the body's main blood vessel (aortic dissection). ??? Inflammation around your heart (pericarditis). ??? A problem in the lungs, such as a blood clot (pulmonary embolism) or a collapsed lung (pneumothorax). Some non life-threatening causes of chest pain include: ??? Heartburn. ??? Anxiety or stress. ??? Damage to the bones, muscles, and cartilage that make up your chest wall. ??? Pneumonia or bronchitis. ??? Shingles infection (varicella-zoster virus). Your chest pain may come and go. It may also be constant. Your health care provider will do tests and other studies to find the cause of your pain. Treatment will depend on the cause of your chest pain. Follow these instructions at home: Medicines ??? Take tswb-ryr-rtjlvlr and prescription medicines only as told by your health care provider. ??? If you were prescribed an antibiotic medicine, take it as told by your health care provider. Donot stop taking the antibiotic even if you start to feel better. Activity ??? Avoid any activities that cause chest pain. ??? Do not lift anything that is heavier than 10 lb (4.5 kg), or the limit that you are told, untilyour health care provider says that it is safe. ??? Rest as directed by your health care provider. ??? Return to your normal activities only as told by your health care provider. Ask your health care provider what activities are safe for you. Lifestyle ??? Do not use any products that contain nicotine or tobacco, such as cigarettes, e-cigarettes, andchewing tobacco. If you need help quitting, ask your health care provider. ??? Do not drink alcohol. ??? Make healthy lifestyle changes as recommended. These may include: ??? Getting regular exercise. Ask your health care provider to suggest some exercises that are safefor you. ??? Eating a heart-healthy diet. This includes plenty of fresh fruits and vegetables, whole grains,low-fat (lean) protein, and low-fat dairy products. A dietitian can help you find healthy eating options. ??? Maintaining a healthy weight. ??? Managing any other health conditions you may have, such as high blood pressure (hypertension) or diabetes. ??? Reducing stress, such as with yoga or relaxation techniques. General instructions ??? Pay attention to any changes in your symptoms. ??? It is up to you to get the results of any tests that were done. Ask your health care provider, or the department that is doing the tests, when your results will be ready. ??? Keep all follow-up visits as told by your health care provider. This is important. ??? You may be asked to go for further testing if your chest pain does not go away. Contact a health care provider if: ??? Your chest pain does not go away. ??? You feel depressed. ??? You have a fever. ??? You notice changes in your symptoms or develop new symptoms. Get help right away if: ??? Your chest pain gets worse. ??? You have a cough that gets worse, or you cough up blood. ??? You have severe pain in your abdomen. ??? You faint. ??? You have sudden, unexplained chest discomfort. ??? You have sudden, unexplained discomfort in your arms, back, neck, or jaw. ??? You have shortness of breath at any time. ??? You suddenly start to sweat, or your skin gets clammy. ??? You feel nausea or you vomit. ??? You suddenly feel lightheaded or dizzy. ??? You have severe weakness, or unexplained weakness or fatigue. ??? Your heart begins to beat quickly, or it feels like it is skipping beats. These symptoms may represent a serious problem that is an emergency. Do not wait to see if the symptoms will go away. Get medical help right away. Call your local emergency services (911 in the [place] Do not drive yourself to the hospital. Summary ??? Chest pain can be caused by a condition that is serious and requires urgent treatment. It may also be caused by something that is not life-threatening. ??? Your health care provider may do lab tests and other studies to find the cause of your pain. ??? Follow your health care provider's instructions on taking medicines, making lifestyle changes, and getting emergency treatment if symptoms become worse. ??? Keep all follow-up visits as told by your health care provider. This includes visits for any further testing if your chest pain does not go away. This information is not intended to replace advice given to you by your health care provider. Make sure you discuss any questions you have with your health care provider. Document Revised: 01/10/2022 Document Reviewed: 01/10/2022 Elsevier Patient Education ?? 2022 [employer] Follow Up Care 12/24/2023 00:59:09 With:Bin Boyce MD Address: [address] [phone] When:1 week only if needed Physician Emergency department Note * Fadi Penny MD: PERFORM Event Display: ED Note Physician Authored Date: [id number] KAELA GRAY :1970 Age:53 years Sex:Male Visit Date:12/24/2023 Primary Care Physician: Bin Boyce MD Basic Information Time Seen: Fadi Penny MD / 12/24/2023 01:00 Chief Complaint CP started this PM, sharp mid sternum like a sticking feeling 1045, at rest. Received 325 ASA andpain has relieved. Pain began when drinking water, went away within 10 min. No recent illnesses. Hxof stent years ago. History Of Present Illness: Patient complains of??low??retrosternal chest discomfort that lasted about 10 minutes. ??It startedat 10:45 when he was drinking water and then resolved. ??There was no shortness of breath with it. ??He has been having some problems with epigastric discomfort off and on??for the last month or so and is scheduled to have a CT scan at [facility]??next week. ??I assume it is??being done they are nothere because his morbid obesity. ??He has a history of coronary artery disease and had a stent about 5 years ago. ??He also has paroxysmal atrial fibrillation and his last ablation for that was last June. ??No atrial fibrillation since then. Review of Systems: No fever chills or sweats. ??No headache runny nose sore throat??or cough. ??No dysuria. Physical Exam Vitals & Measurements T:??36.9?C ??(Temporal Artery)?? HR:??60??(Peripheral)?? HR:??60??(Monitored)?? RR:??21?? BP:??106/58?? SpO2:??96%?? HT:??167.64??cm?? WT:??220.2??kg?? BMI:??78.35?? Pain Score:??0?? O2 Therapy:??Room air?? Resting SpO2:??98?? Resting SpO2:??97?? Alert pleasant cooperative in no distress. ??Morbidly obese and well-appearing. ??HEENT normocephalic atraumatic. ??Extraocular movements are intact no conjunctivitis. ??Oropharynx is clear. ??Neck is supple and trachea midline. ??No lymphadenopathy. ??Lungs are clear. ??Heart is regular rate and rhythm.?? No tachypnea. ??Abdomen obese soft nontender nondistended.?? Moves all 4 extremities equally.?? No gross neurological deficits. Medical Decision Making: Chest 2 view as read by me??shows no acute finding and??no change compared to??2020 ?? 1:40 AM first troponin negative. ??Will repeat at 2:45 which is 4 hours after onset of pain. ?? 3:25 AM:??Second troponin negative. ??Patient pain-free.?? Pain not likely??cardiopulmonary in nature.?? As it??came while he was drinking water esophageal spasm is a likely culprit.?? He has CT scan??later today and upper and lower endoscopy coming up soon. ??He will return as needed. Procedure No Qualifying Data Assessment/Plan 1.??Atypical chest pain??R07.89 Orders: Cardiac Monitoring, 12/24/23 1:08:00 EST, May be off for activity: No XR Chest 2 Views, 12/24/23 1:08:00 EST, Stat, Reason: CHEST PAIN, Reason: CHEST PAIN, Exam to be performed outside organization? Patient Education Nonspecific Chest Pain, Adult Follow Up With When Contact Information [facility], Bin Moe MD Within 1 week, only if needed [address] [phone] Additional Instructions: Medication Reconciliation Unchanged apixaban (Eliquis [...] Refills: 0. ?? potassium chloride (Potassium Chloride (Bbg-Blxv-Mqj 10) 10 mEq oral tablet, extended release)4 [...] and Brother. Myocardial infarction: Father and Brother. Diagnostic Results ECG EKG as read by me is sinus rhythm rate of 93.?? Inferior Q waves??are noted. ??No acute ST or T wave changes.?? No change from 09/29/2023. Lab Results CBC and Differential?? LATEST RESULTS?? HISTORICAL RESULTS?? WBC?? 12/24/23 01:06?? 8.9?? 08/23/22?? 8.0?? RBC?? 12/24/23 01:06?? 4.6?? 08/23/22?? 5.0?? Hgb?? 12/24/23 01:06?? 12.9 ??Low?? 08/23/22?? 14.1?? Hct?? 12/24/23 01:06?? 39.6 ??Low?? 08/23/22?? 43.5?? MCV?? 12/24/23 01:06?? 86.7?? 08/23/22?? 87.2?? MCH?? 12/24/23 01:06?? 28.2?? 08/23/22?? 28.3?? MCHC?? 12/24/23 01:06?? 32.6?? 08/23/22?? 32.4?? RDW-CV?? 12/24/23 01:06?? 14.4?? 08/23/22?? 13.7?? Platelets?? 12/24/23 01:06?? 176?? 08/23/22?? 195?? Neutro Auto?? 12/24/23 01:06?? 59.3?? 08/23/22?? 66.7?? Lymph Auto?? 12/24/23 01:06?? 30.0?? 08/23/22?? 22.6?? Kern Auto?? 12/24/23 01:06?? 7.0?? 08/23/22?? 7.4?? Eos, Auto?? 12/24/23 01:06?? 2.4?? 08/23/22?? 2.3?? Basophil Auto?? 12/24/23 01:06?? 0.6?? 08/23/22?? 0.6?? Imm Gran Auto?? 12/24/23 01:06?? 0.7?? 08/23/22?? 0.4?? Neutro Absolute?? 12/24/23 01:06?? 5.3?? 08/23/22?? 5.3?? Slide Review?? 12/24/23 01:06?? Not Indicated? Routine Chemistry?? LATEST RESULTS?? HISTORICAL RESULTS?? Sodium Level?? 12/24/23 01:06?? 140?? 11/04/23?? 142?? Potassium Level?? 12/24/23 01:06?? 3.7?? 11/04/23?? 4.1?? Chloride Level?? 12/24/23 01:06?? 104?? 11/04/23?? 103?? CO2?? 12/24/23 01:06?? 28?? 11/04/23?? 34 ??High?? Alk Phos?? 12/24/23 01:06?? 69?? 08/23/22?? 69?? AST?? 12/24/23 01:06?? 26?? 08/23/22?? 16?? ALT?? 12/24/23 01:06?? 34?? 08/23/22?? 30?? BUN?? 12/24/23 01:06?? 8?? 11/04/23?? 12?? Glucose Level?? 12/24/23 01:06?? 114 ??High?? 11/04/23?? 134 ??High?? Creatinine Level?? 12/24/23 01:06?? 0.99?? 11/04/23?? 1.07?? eGFR AA?? 12/24/23 01:06?? 91?? 11/04/23?? 83?? eGFR Non-AA?? 12/24/23 01:06?? 91?? 11/04/23?? 83?? Calcium Level?? 12/24/23 01:06?? 9.2?? 11/04/23?? 10.1?? Protein Total?? 12/24/23 01:06?? 7.2?? 08/23/22?? 7.2?? Albumin Level?? 12/24/23 01:06?? 3.1 ??Low?? 08/23/22?? 3.2 ??Low?? Bilirubin Total?? 12/24/23 01:06?? 0.5?? 08/23/22?? 0.4?? Lipase Level?? 12/24/23 01:06?? 31? Cardiac Isoenzymes?? LATEST RESULTS?? HISTORICAL RESULTS?? Troponin-I?? 12/24/23 02:45?? 63.9?? 08/23/22?? 68.8? Electronically Signed on 12/24/23 03:26 AM Fadi Penny MD Emergency department Discharge instructions * Fadi Penny MD: PERFORM Event Display: ED Discharge Information Authored Date: [id number] ISAACKAELA :1970 Age:53 years Sex:Male Visit Date:12/24/2023 Primary Care Physician: Bin Boyce MD Discharge Instructions We would like to thank you for allowing us to assist you with your healthcare needs. The following includes patient education materials and information regarding your injury/illness. Diagnosis from Today's Visit Atypical chest pain Discharge Vitals Temperature??(Temporal Artery) 98.4 ??F (36.9 ??C) Heart Rate??(Peripheral) 60 Heart Rate??(Monitored) 60 Respiratory Rate?? 21 Blood Pressure?? 106/58?? Height?? 66.00 in (167.64 cm) Weight?? 485.54 lb (220.2 kg) BMI?? 78.35 Allergies Zoloft??(Chest pain) adenosine??(Rapid heart beat) buPROPion gabapentin What to Do Next You Need to Schedule the Following Appointments Follow Up with??Bin Boyce MD When:??Within 1 week, only if needed Where: [address] [phone] Upcoming Scheduled Appointments Friday 12:40 PM EST ?? With: Suzy Hall FIGURINE MAKER Where: [facility] [address] [place] [address] Status: Confirmed Friday 10:15 AM EST ?? With: Bernarda Aguilar NP Where: [facility] [address] [place] [address] Status: Confirmed You were treated today [...] 3 Days Unchanged potassium chloride (Potassium Chloride (Wcn-Mjoe-Ych 10) 10 mEq oral tablet, extended release) 4 tabs Oral (given by mouth) Every day Atrial fibrillation Unchanged torsemide (torsemide 40 mg oral tablet) 1 tab Oral (given by mouth) Every day Atrial fibrillation Education Materials Nonspecific Chest Pain, Adult Chest pain is an uncomfortable, tight, or painful feeling in the chest. The pain can feel like a crushing, aching, or squeezing pressure. A person can feel a burning or tingling sensation. Chest paincan also be felt in your back, neck, jaw, shoulder, or arm. This pain can be worse when you move, sneeze, or take a deep breath. Chest pain can be caused by a condition that is life-threatening. This must be treated right away. It can also be caused by something that is not life- threatening. If you have chest pain, it can be hard to know the difference, so it is important to get help right away to make sure that you do not have a serious condition. Some life-threatening causes of chest pain include: ? Heart attack. ? A tear in the body's main blood vessel (aortic dissection). ? Inflammation around your heart (pericarditis). ? A problem in the lungs, such as a blood clot (pulmonary embolism) or a collapsed lung (pneumothorax). Some non life-threatening causes of chest pain include: ? Heartburn. ? Anxiety or stress. ? Damage to the bones, muscles, and cartilage that make up your chest wall. ? Pneumonia or bronchitis. ? Shingles infection (varicella-zoster virus). Your chest pain may come and go. It may also be constant. Your health care provider will do tests and other studies to find the cause of your pain. Treatment will depend on the cause of your chest pain. Follow these instructions at home: Medicines ? Take ixoh-iqy-rryaqnk and prescription medicines only as told by your health care provider. ? If you were prescribed an antibiotic medicine, take it as told by your health care provider. Do notstop taking the antibiotic even if you start to feel better. Activity ? Avoid any activities that cause chest pain. ? Do not lift anything that is heavier than 10 lb (4.5 kg), or the limit that you are told, until your health care provider says that it is safe. ? Rest as directed by your health care provider. ? Return to your normal activities only as told by your health care provider. Ask your health care provider what activities are safe for you. Lifestyle ? Do not use any products that contain nicotine or tobacco, such as cigarettes, e- cigarettes, and chewing tobacco. If you need help quitting, ask your health care provider. ? Do not drink alcohol. ? Make healthy lifestyle changes as recommended. These may include: ? Getting regular exercise. Ask your health care provider to suggest some exercises that are safe foryou. ? Eating a heart-healthy diet. This includes plenty of fresh fruits and vegetables, whole grains, low-fat (lean) protein, and low-fat dairy products. A dietitian can help you find healthy eating options. ? Maintaining a healthy weight. ? Managing any other health conditions you may have, such as high blood pressure (hypertension) or diabetes. ? Reducing stress, such as with yoga or relaxation techniques. General instructions ? Pay attention to any changes in your symptoms. ? It is up to you to get the results of any tests that were done. Ask your health care provider, or the department that is doing the tests, when your results will be ready. ? Keep all follow-up visits as told by your health care provider. This is important. ? You may be asked to go for further testing if your chest pain does not go away. Contact a health care provider if: ? Your chest pain does not go away. ? You feel depressed. ? You have a fever. ? You notice changes in your symptoms or develop new symptoms. Get help right away if: ? Your chest pain gets worse. ? You have a cough that gets worse, or you cough up blood. ? You have severe pain in your abdomen. ? You faint. ? You have sudden, unexplained chest discomfort. ? You have sudden, unexplained discomfort in your arms, back, neck, or jaw. ? You have shortness of breath at any time. ? You suddenly start to sweat, or your skin gets clammy. ? You feel nausea or you vomit. ? You suddenly feel lightheaded or dizzy. ? You have severe weakness, or unexplained weakness or fatigue. ? Your heart begins to beat quickly, or it feels like it is skipping beats. These symptoms may represent a serious problem that is an emergency. Do not wait to see if the symptoms will go away. Get medical help right away. Call your local emergency services (911 in the [place] Do not drive yourself to the hospital. Summary ? Chest pain can be caused by a condition that is serious and requires urgent treatment. It may also be caused by something that is not life-threatening. ? Your health care provider may do lab tests and other studies to find the cause of your pain. ? Follow your health care provider's instructions on taking medicines, making lifestyle changes, and getting emergency treatment if symptoms become worse. ? Keep all follow-up visits as told by your health care provider. This includes visits for any further testing if your chest pain does not go away. This information is not intended to replace advice given to you by your health care provider. Make sure you discuss any questions you have with your health care provider. Document Revised: 01/10/2022 Document Reviewed: 01/10/2022 [employer] Patient Education ?? 2022 [employer] Tests Performed Lab Test Name Test Result Date/Time WBC 8.9 x10^3/mcL 12/24/2023 01:06 EST RBC 4.6 x10^6/mcL 12/24/2023 01:06 EST Hgb 12.9 g/dL 12/24/2023 01:06 EST Hct 39.6 % 12/24/2023 01:06 EST MCV 86.7 fL 12/24/2023 01:06 EST MCH 28.2 pg 12/24/2023 01:06 EST MCHC 32.6 g/dL 12/24/2023 01:06 EST RDW-CV 14.4 % 12/24/2023 01:06 EST Platelets 176 x10^3/mcL 12/24/2023 01:06 EST Neutro Auto 59.3 % 12/24/2023 01:06 EST Lymph Auto 30.0 % 12/24/2023 01:06 EST Kern Auto 7.0 % 12/24/2023 01:06 EST Eos, Auto 2.4 % 12/24/2023 01:06 EST Basophil Auto 0.6 % 12/24/2023 01:06 EST Imm Gran Auto 0.7 % 12/24/2023 01:06 EST Neutro Absolute 5.3 x10^3/mcL 12/24/2023 01:06 EST Slide Review Not Indicated 12/24/2023 01:06 EST Sodium Level 140 mmol/L 12/24/2023 01:06 EST Potassium Level 3.7 mmol/L 12/24/2023 01:06 EST Chloride Level 104 mmol/L 12/24/2023 01:06 EST CO2 28 mmol/L 12/24/2023 01:06 EST Alk Phos 69 unit/L 12/24/2023 01:06 EST AST 26 unit/L 12/24/2023 01:06 EST ALT 34 unit/L 12/24/2023 01:06 EST BUN 8 mg/dL 12/24/2023 01:06 EST Glucose Level 114 mg/dL 12/24/2023 01:06 EST Creatinine Level 0.99 mg/dL 12/24/2023 01:06 EST eGFR AA 91 12/24/2023 01:06 EST eGFR Non-AA 91 12/24/2023 01:06 EST Calcium Level 9.2 mg/dL 12/24/2023 01:06 EST Protein Total 7.2 g/dL 12/24/2023 01:06 EST Albumin Level 3.1 g/dL 12/24/2023 01:06 EST Bilirubin Total 0.5 mg/dL 12/24/2023 01:06 EST Lipase Level 31 unit/L 12/24/2023 01:06 EST Troponin-I 63.9 pg/mL 12/24/2023 02:45 EST 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 Patient/[employer] Delivery Driver Name: Patient/[employer] Delivery Driver Signature: Relationship to Patient: Witness Name/Signature: Date: Electronically Signed on: 12/24/2023 03:26 ESTSigned by:RONI Patient Care team information Care Team Personnel Name: Suresh Roth MD Position: Physician Member Role: Informed Provider Address: Address: [address] [place] [id number]- Name: Bin Boyce MD Position: No Access Member Role: Primary Care Physician Address: Address: [facility] [address] [facility], [place] [address] Care Team Related Persons Name: MASON GRAY Address: Home [address] [facility], [phone]
--- OUTSIDE RECORDS SUMMARY | 2024-05-17 14:29 | XMS_ITS | Continuity of Care Document ---
Author Name Unknown Organization [facility] Address [address] [place] [address] Care Team Providers Care Behaviorist Name Role Phone [facility] Primary [facility] Physician Encounter [facility] [id number] Date(s): 03/31/24 - 03/31/24 [facility] [address] [place] [address] Encounter Diagnosis Atrial fibrillation(Discharge Diagnosis) - 03/31/24 Hypertension(Discharge Diagnosis) - 03/31/24 SVT (supraventricular tachycardia)(Discharge Diagnosis) - 03/31/24 Discharge Disposition: Home or Self Care Attending Physician: Suzy Hall NP Allergies, Adverse Reactions, Alerts Substance Reaction Severity Status adenosine 1 Rapid heart beat Severe Active gabapentin Unknown Active buPROPion Unknown Active Zoloft Chest pain Severe Active 1PT had an adverse reaction HR went up to 250%27s Assessment and Plan Extracted from: Title:Cardiology Clinic - Office Visit Note Auth or:Suzy Hall NP Date:03/31/24 Atrial fibrillation??I48.91 Actions: COMPLETED - Follow-Up Appointment Request [facility], 03/31/24 12:40:00 EDT, In Approximately, [facility], 03/31/24 12:40:00 EDT ?? Hypertension??I10 Actions: COMPLETED - 72399 Office/Outpatient Visit - Established Patient, Level 3 (20-29 min)., 03/31/24 12:05:00 EDT, Hypertension FUTURE - Follow-Up Appointment Request [facility], *Est. 03/31/25 +/- 28 days, Future Order, In Approximately, [facility] ?? SVT (supraventricular tachycardia)??I47.10 ?? Future Appointments Future Scheduled Tests Laboratory* Basic Metabolic Panel 11/06/23 Medications aspirin 81 mg oral capsule 81 mg = 1 cap, Oral, Daily, do not exceed 48 capsules in 24 hours, # 30 cap, 0 Refill(s) Start Date: 09/30/23 Status: Ordered Bactrim 600 mg =, BID, 0 Refill(s) Start Date: 12/31/23 Status: Ordered clonazePAM 1 mg oral tablet [...] BID, # 180 tab, 4 Refill(s), Pharmacy: [id number], 168, cm, 11/17/22 13:46:00 EST, Height/Length Dosing, 210, kg, 11/17/22 13:46:00 EST, Weight Dosing Start Date: 06/24/23 Stop Date: 09/16/24 Status: Ordered Motegrity 0 Refill(s) Start Date: 03/16/24 Status: Ordered oxyCODONE 10 mg oral tablet 10 mg = 1 tab, Oral, every 6 hr, PRN as needed for pain, # 15 tab, 0 Refill(s), 04/06/24 3:18:00 PM CDT Start Date: 03/16/24 Stop Date: 04/06/24 Status: Ordered Potassium Chloride (Wgu-Skxv-Msk 10) 10 mEq oral tablet, extended release 4 tabs, Oral, Daily, # 360 tab, 3 Refill(s), Pharmacy: [id number], 167.64, cm, 10/06/23 12:44:00 EST, Height, 204.12, kg, 10/06/23 12:54:00 EST, Weight Dosing Start Date: 10/31/23 Status: Ordered Pyridium 200 mg oral tablet 200 mg = 1 tab, Oral, TID(PC), # 9 tab, 0 Refill(s), Pharmacy: [id number], 168, cm, 11/17/22 13:46:00 EST, Height/Length Dosing, 210, kg, 11/17/22 13:46:00 EST, Weight Dosing Start Date: 11/17/22 Stop Date: 11/20/22 Status: Ordered torsemide 40 mg oral tablet 40 mg = 1 tab, Oral, Daily, # 90 tab, 4 Refill(s), Pharmacy: [id number], 167.64, cm, 09/30/23 13:19:00 [...] Range]: 1 Peripheral Pulse Rate [60-100 bpm] 79 bp m (03/31/24 12:06 PM) Blood Pressure [90-140/60-90 mmHg] 165/9 0mmHg *HI* (03/31/24 12:06 PM) Mean Arterial Pressure, Cuff [65-140 mmH g] 115 mmHg (03/31/24 12:06 PM) Social History Social History Type Response Smoking Status Smoking tobacco use: Former tobacco user;Former smokeless tobacco user, quit more than 30 days ago; Number of years: 15; entered on: 10/06/23 Sex Male Physician Outpatient Note * Suzy Hall 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 CAD- NSTEMI 2017, EMMY OM1. 2. SVT 3. Atrial fibrillation- Ablation 06/2020, repeat ablation 01/2021 ?? This is a 53-year-old gentleman that I last saw in the office on 12/31/2019??for heart failure with preserved ejection fraction, atrial fibrillation,??SVT,??coronary artery disease with history of an NSTEMI in 2016 and a stent??to the OM1.?? He was asymptomatic??for his CAD and on a cardioprotectivemedication regimen, as well as in sinus rhythm??with a history of 2 ablations at [facility].?? I discussed with him starting Entresto and Jardiance for his heart failure with preserved ejection fraction, and he stated??that he declined considering he felt well but will keep that??in his mind.?? His torsemide was at a therapeutic dose. ??He is here??to follow-up. ?? He states that he has been??feeling quite poorly lately but it is related to his kidney stones.?? He states that he was told he has at least a 2 mm??kidney stone??that he is scheduled for surgery next Friday. ??He first noticed this when he went into the bathroom and urinated??straight dinesh blood.??He is also on treatment for his H. pylori with 2 antibiotics??so he is slowly hoping to feel better.?? He states that in terms of his heart he feels great. ??He denies chest pain, palpitations, dyspnea, syncope, orthopnea, PND, and edema. ??He was previously on 40 mg of torsemide but is no longertaking this. ??He states that??he is??wearing compression stockings every single day and it makes him feel great and he notices that he has no swelling. ??He is not wearing the compression stockings today and still has no swelling on exam. ?? He is not performing any exercise??lately due to his stomach and kidney issues,??but hopes??to get back??into a routine after his illness is resolved.?? He is not checking his blood pressure at home??routinely??but when he was checking his blood pressure he is averaging around 108. ??He does have an arm blood pressure cuff available and will start to do this again. Review of Systems A complete review of systems is negative other than as noted in the history of present illness. Physical Exam Vitals & Measurements HR:??79??(Peripheral)?? BP:??165/90?? SpO2:??98%?? HEENT: Normocephalic, atraumatic Respirations: Clear to auscultation [...] change right atrial pressure estimated 5-10 mmHg. Stress:??March 14, 2019. ??[place]. ??Moderate size severely intense fixed inferolateral defect. ??LVEF 50%. ??Minimal ischemia. LHC:??January 16, 2021. ??[place]. ??Successful placement of pericardial drain for pre tamponade physiology. July 13, 2017. ??[place]. ??Left main: Normal. ??LAD normal. ??LCx: 85% proximal OM 1. ??Thrombus. ??Large. ??RCA normal. ??Ramus normal. Marck EMMY x1???OM1. Event monitor:??February 22, 2021. ??11 days 4 hours. ??ZIO monitor. ??[place]. ??Baseline rhythm sinus, average rate 57 bpm, range 41-95 bpm. ??No pauses greater than or equal to 3 seconds. ??No AV block. ??Rare PAC. ??No SVT. ??Less than 1% burden PVC. ??No NSVT. August 02, 2020. ??13 days 21 hours. ??[place]. ??Baseline rhythm sinus, average 64 bpm, edqiw66-382 bpm. ??No pauses. ??Rare single PAC. ??19 runs of SVT. ??Fastest 160 bpm, longest 13 beat duration. ??Less than 1% PVC. ??No NSVT. ??Symptoms: Dyspnea chest pain pressure dizziness lightheadedness corresponded to sinus rhythm 64-92 bpm. EK09/30/2023: Sinus rhythm at 63 bpm.?? Axes and intervals within normal limits. ??No evidence of ischemia or prior infarct. 12/31/23:EKG:Sinus rhythm at 64 bpm, axes and intervals within normal limits. 03/31/24:EKG:Sinus rhythm at 73 bpm ?? 52-year-old gentleman??with coronary disease and heart failure with preserved ejection fraction. ? Heart failure with Preserved ejection fraction:??He is not on a cardioprotective medication regimenfor his heart failure, we discussed in??Entresto and Jardiance previously and he declined this.?? David encourage him to be on Entresto and Jardiance for his??heart failure with preserved ejection fraction??by he states he is asymptomatic and declines??at this time.?? He does not have any swelling on exam??and he is not taking his torsemide. 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 ? Coronary artery disease:??He is asymptomatic and on a cardioprotective medication regimen for his coronary artery disease. ??No change to this regimen at this time. ? SVT/atrial fibrillation:??He is asymptomatic and doing well.?? He is properly anticoagulated andrate controlled. ??I will see him again in 1 year to check in on how he is doing, he knows to call in with any questions or concerns in the meantime.?? It was a pleasure to see Rolo. Clinic Assessment/Plan Atrial fibrillation??I48.91 Actions: COMPLETED - Follow-Up Appointment Request [facility], 03/31/24 12:40:00 EDT, In [facility], [facility], 03/31/24 12:40:00 EDT ?? Hypertension??I10 Actions: COMPLETED - [id number] Office/Outpatient Visit - Established Patient, Level 3 (20-29 min)., 03/31/24 12:05:00 EDT, Hypertension FUTURE - Follow-Up Appointment Request SALIM[facility], *Est. 03/31/25 +/- 28 days, Future Order, In [facility], [facility] ?? SVT (supraventricular tachycardia)??I47.10 ?? Problem List/Past Medical History Ongoing Atrial [...] a day Afib Duration: 90 Days Unchanged oxyCODONE (oxyCODONE 10 mg oral tablet) 1 tab Oral (given by mouth) Every 6 hours as needed for as needed for pain Kidney stone Hematuria Unchanged phenazopyridine (Pyridium 200 mg oral tablet) 1 tab Oral (given by mouth) 3 times a day after meals Duration: 3 Days Unchanged potassium chloride (Potassium Chloride (Gpv-Fbio-Sze 10) 10 mEq oral tablet, extended release) 4 tabs Oral (given by mouth) Every day Atrial fibrillation Unchanged prucalopride (Motegrity) Unchanged sulfamethoxazole-trimethoprim (Bactrim) 600 Milligrams 2 times a day Unchanged torsemide (torsemide 40 mg oral tablet) 1 tab Oral (given by mouth) Every day Atrial fibrillation Allergies Zoloft??(Chest pain) adenosine??(Rapid heart beat) buPROPion [...] infarction: Father and Brother. Electronically Signed on 03/31/2024 12:50 EDT Suzy Hall NP Patient Care team information Care Team Personnel Name: Suresh Roth MD Position: Physician Member Role: Informed Provider Address: Address: [address] [place] [id number]- Name: Bin Boyce MD Position: No Access Member Role: Primary Care Physician Address: Address: [facility] [address] [place] [address]- [place] Care Team Related Persons Name: MASON GRAY Address: Home [address] [facility], [phone]
--- OUTSIDE RECORDS SUMMARY | 2024-05-17 14:29 | XMS_ITS | Continuity of Care Document ---
Author Name Unknown Organization [facility] Address [address] [place] [address] Care Team Providers Care Vp Outcomes Name Role Phone [facility] [id number] Date(s): 04/09/24 - 04/10/[address] [address] Discharge Disposition: Home or Self Care Attending Physician: Tacho Dumont MD Admitting Physician: Tacho Dumont MD Allergies, Adverse Reactions, Alerts Substance Reaction Severity Status adenosine 1 Rapid heart beat Severe Active gabapentin Unknown Active buPROPion Unknown Active Zoloft Chest pain Severe Active 1PT had an adverse reaction HR went up to 250%27s Assessment and Plan Future Appointments Diagnostic Tests Pending * Urine Culture 04/09/24 Future Scheduled Tests Laboratory* Basic Metabolic Panel [...] 0 Refill(s) Start Date: 09/30/23 Status: Ordered doxycycline 100 mg =, BID, 0 Refill(s) Start Date: 04/03/24 Status: Ordered Eliquis 5 mg oral tablet [...] BID, # 180 tab, 4 Refill(s), Pharmacy: [id number], 168, cm, 11/17/22 13:46:00 EST, Height/Length Dosing, 210, kg, 11/17/22 13:46:00 EST, Weight Dosing Start Date: 06/24/23 Stop Date: 09/16/24 Status: Ordered Motegrity 0 Refill(s) Start Date: 03/16/24 Status: Ordered neomycin 500 mg =, BID, 0 Refill(s) Start Date: 04/03/24 Status: Ordered oxyCODONE 10 mg oral tablet 10 mg = 1 tab, Oral, every 6 hr, PRN as needed for pain, # 12 tab, 0 Refill(s), 04/15/24 12:57:00 PM CDT Start Date: 04/03/24 Stop Date: 04/15/24 Status: Ordered Potassium Chloride (Rzc-Btdf-Jss 10) 10 mEq oral tablet, extended release 4 tabs, Oral, Daily, # 360 tab, 3 Refill(s), Pharmacy: [facility], 167.64, cm, 10/06/23 12:44:00 EST, Height, 204.12, kg, 10/06/23 12:54:00 EST, Weight Dosing Start Date: 10/31/23 Status: Ordered Pyridium 200 mg oral tablet 200 mg = 1 tab, Oral, TID(PC), # 9 tab, 0 Refill(s), Pharmacy: [id number], 168, cm, 11/17/22 13:46:00 EST, Height/Length Dosing, 210, kg, 11/17/22 13:46:00 EST, Weight Dosing Start Date: 11/17/22 Stop Date: 11/20/22 Status: Ordered torsemide 40 mg oral tablet 40 mg = 1 tab, Oral, Daily, # 90 tab, 4 Refill(s), Pharmacy: [id number], 167.64, cm, 09/30/23 [...] if Indicated and C ulture if Indicated 04/09/24 Urinalysis Microscopic 04/09/24 CBC w/ Diff 04/09/24 Comprehensive Metabolic Panel (CMP) 04/09 .Manual Differential (NCTY) 04/09/24 Most recent to oldest [Reference Range]: 1 WBC [5.0-10.0 x10^3/mcL] 10.8 x10^3/mcL *HI* (04/09/24 10:57 PM) RBC [4.6-6.0 x10^6/mcL] 5.1 x10^6/mcL (04/09/24 10:57 PM) Segs Man [40-75 %] 86 % *HI* (04/09/24 10:57 PM) Lymph Man [20-50 %] 11 % *LOW* (04/09/24 10:57 PM) [place] Man [2-15 %] 2 % (04/09/24 10:57 PM) Eos Man [1-6 %] 0 % *LOW* (04/09/24 10:57 PM) BUN [7-18 mg/dL] 12 mg/dL (04/09/24 10:57 PM) UA Color Dark Yellow (04/09/24 11:52 PM) UA WBC [0-3] 5-10 *ABN* (04/09/24 11:52 PM) Glucose Level [74-106 mg/dL] 162 mg/dL *HI* (04/09/24 10:57 PM) Potassium Level [3.5-5.1 mmol/L] 4.9 mmo l/L (04/09/24 10:57 PM) MCV [80.0-96.0 fL] 84.6 fL (04/09/24 10:57 PM) UA Urobilinogen Normal (04/09/24:52 PM) RBC Morph Normal (04/09/24 10:57 PM) UA Bili [Negative] 1+ *ABN* (04/09/24 11:52 PM) UA Ketones Negative (04/09/24 11:52 PM) AST [15-37 unit/L] 36 unit/L (04/09/24 10:57 PM) ALT [16-63 unit/L] 47 unit/L (04/09/24 10:57 PM) MCHC [31.0-35.0 g/dL] 32.7 g/dL (04/09/24 10:57 PM) Sodium Level [136-145 mmol/L] 134 mmol/L *LOW* (04/09/24 10:57 PM) UA RBC [0-2] >100 (04/09/24 11:52 PM) UA Leuk Est Trace *ABN* (04/09/24:52 PM) UA Nitrite Negative (04/09/24 11:52 PM) UA Glucose [Negative] Negative (04/09/24 11:52 PM) Hct [41.0-51.0 %] 43.4 % (04/09/24 10:57 PM) UA Bacteria Few /HPF *ABN* (04/09/24 11:52 PM) Calcium Level [8.5-10.1 mg/dL] 9.9 mg/dL (04/09/24 10:57 PM) Albumin Level [3.4-5.0 g/dL] 3.4 g/dL (04/09/24 10:57 PM) Protein Total [6.4-8.2 g/dL] 7.9 g/dL (04/09/24 10:57 PM) UA Protein 2+ *ABN* (04/09/24 11:52 PM) MCH [26.0-32.0 pg] 27.7 pg (04/09/24 10:57 PM) Bilirubin Total [0.2-1.0 mg/dL] 0.7 mg/d L (04/09/24 10:57 PM) Hgb [14.0-18.0 g/dL] 14.2 g/dL (04/09/24 10:57 PM) Alk Phos [46-146 unit/L] 74 unit/L (04/09/24 10:57 PM) UA Blood 3+ *ABN* (04/09/24 11:52 PM) UA Mucous None Seen /HPF (04/09/24 11:52 PM) Band Man [0-5 %] 1 % (04/09/24 10:57 PM) UA Spec Grav 1.015 *NA* (04/09/24 11:52 PM) Platelets [130-450 x10^3/mcL] 190 x10^3/ mcL (04/09/24 10:57 PM) CO2 [21-32 mmol/L] 26 mmol/L (04/09/24 10:57 PM) UA Squam Epithelial [None Seen] Rare (04/09/24 11:52 PM) UA pH 7.0 *NA* (04/09/24 11:52 PM) eGFR Non-AA [>=60] 76 (04/09/24 10:57 PM) eGFR AA [>=60] 76 (04/09/24 10:57 PM) UA Appear Hazy *ABN* (04/09/24 11:52 PM) Chloride Level [98-107 mmol/L] 99 mmol/L (04/09/24 10:57 PM) RDW-CV [11.5-14.5 %] 14.8 % *HI* (04/09/24 10:57 PM) Slide Review Man Diff (04/09/24 10:57 PM) UA Culture Ind?. Indicated (04/09/24 11:52 PM) Abs Neut Man 9.4 x10^3/mcL *NA* (04/09/24 10:57 PM) Creatinine Level [0.70-1.30 mg/dL] 1.15 mg/dL (04/09/24 10:57 PM) Baso Man [0-1 %] 0 % (04/09/24 10:57 PM) Vital Signs Most recent to oldest [Reference Range]: 1 Temperature Temporal Artery [36-38 Deg C ] 36.4 Deg C (04/09/24 10:09 PM) Heart Rate Monitored [60-100 bpm] 94 bpm (04/09/24 10:09 PM) Respiratory Rate [12-24 br/min] 20 br/mi n (04/09/24 10:09 PM) Blood Pressure [90-140/60-90 mmHg] 135/7 7mmHg (04/09/24 10:09 PM) Mean Arterial Pressure, Cuff [65-140 mmH g] 96 mmHg (04/09/24 10:09 PM) Weight 210.92 kg (04/09/24 10:09 PM) Weight Dosing 210.920 kg (04/09/24 10:09 PM) Height 168 cm (04/09/24 10:09 PM) Body Mass Index 74.73 kg/m2 (04/09/24 10:09 PM) Body Mass Index Estimated 74.73 kg/m2 (04/09/24 10:09 PM) Height/Length Estimated 168 cm (04/09/24 10:09 PM) Social History Social History Type Response Smoking Status Smoking tobacco use: Former tobacco user;Former smokeless tobacco user, quit more than 30 days ago; Number of years: 15; entered on: 10/06/23 Sex Male Physician Emergency department Note * Tacho Dumont MD: PERFORM Event Display: ED Note Physician Authored Date: [id number] KAELA GRAY :1970 Age:53 years Sex:Male Visit Date:04/09/2024 Primary Care Physician: Bin Boyce MD HPI 53-year-old morbidly obese male with CAD, atrial fibrillation (on Eliquis), HTN, PILAR, and recent kidney stones presents with ongoing right flank pain and pain on urination refractory to acetaminophen(notes that he cannot/will not take ibuprofen due to Eliquis usage) after having a stent placed earlier today at [facility]. ??The patient was discharged with instructions to use ibuprofen and acetaminophen for analgesia. ??The patient has taken acetaminophen approximately 5 hours prior to arrival. ??Thepatient reports that he was seen approximately 1 week ago in this ER and received oxycodone with good effect. ?? M/S/F/SocHx notable for: Please see HPI; remainder reviewed with patient and in chart.? ROS: Negative constitutional, eye, cardiovascular, pulmonary, GI, , MSK, skin, neurologic, psychiatric, endocrine unless noted in the HPI. ?? Exam HR 94, RR 20, BP 135/77, T 36.4?C, SaO2 97% on room air. Gen: Pleasant, non-toxic appearing, 500 mL NS, 1 g IV acetaminophen and 15 mg IV Toradol given for initial symptom management. HEENT: NC, AT, PEERL, EOMI. Resp: Clear to auscultation bilaterally, normal work of breathing, no accessory muscle usage. Card: Regular rate and rhythm with no murmurs, rubs, or gallops, extremities warm and well perfused. GI: Non-tender to palpation throughout all quadrants, non-distended, no rebound or guarding. : No suprapubic tenderness to palpation. MSK: No visible deformities, strength and tone without visually appreciable deficit. Skin: Normal color with no visible lesions. Neuro: Alert and oriented?3, no facial asymmetry, vision and hearing WNL. Psych: Mood and affect appropriate. ?? Labs?? WBC 10.8, Hb 14.2, Na 134, K 4.9, total bilirubin 0.7, AST 36, ALT 47, ALP 74, CR 1.15.?? UA with trace leukocyte esterase, negative nitrate, negative ketones, 5-10 WBCs, >100 RBCs, raresquamous epithelial cells, few bacteria. MDM Previous chart, nursing note, labs, imaging, and vitals reviewed.?? A: 53-year-old morbidly obese male with CAD, atrial fibrillation (on Eliquis), HTN, PILAR, and recentkidney stones presents with ongoing right flank pain and pain on urination refractory to acetaminophen (notes that he cannot/will not take ibuprofen due to Eliquis usage) after having a stent placed earlier today at [facility]. ?? DDx: UTI, pyelonephritis, postprocedural pain, acute kidney injury. ?? Evaluation: Patient resting in mild discomfort, no significant tachycardia, hypertension, or discernible abnormalities on physical examination. ??Creatinine is within acceptable limits, labs note white blood cell count of 10.8 and a urinalysis with trace leukocyte esterase, and 5-10 WBCs, this is tentatively believed to be secondary to the patient's recent procedure as the patient is afebrile andwithout further concerning features, a urinary tract infection/pyelonephritis is felt to be effectively excluded/appropriately risk stratified. ??A urine culture was ordered and the patient was discharged with instructions to use ibuprofen and acetaminophen for pain control. ??Treatment guidelines for concurrent NSAID with NOAC usage reviewed and 3 to 5 days of limited NSAID usage for acute pain control is appropriate. ??The patient noted multiple times that he would prefer to have oxycodone 15mg as he felt that 10 mg oxycodones were not sufficient. ??The patient noted that he did have significant improvement with the liquid acetaminophen that he was given (the patient was given 1 g IV acetaminophen, 15 mg Toradol, and 500 mg NS in the emergency department with good improvement of symptoms). ??As there is similar efficacy between p.o. with IV acetaminophen, then it is anticipated that p.o. acetaminophen should provide similar relief at home. ?? Impression: Post procedural pain. Electronically Signed on 04/10/2024 01:12 EDT Tacho Dumont MD Emergency department Discharge instructions * Tacho Dumont MD: PERFORM Event Display: ED Discharge Information Authored Date: [id number] KAELA GRAY :1970 Age:53 years Sex:Male Visit Date:04/09/2024 Primary Care Physician: Bin Boyce MD Discharge Instructions We would like to thank you for allowing us to assist you with your healthcare needs. The following includes patient education materials and information regarding your injury/illness. ?? You were seen at [facility] for evaluation for evaluation of??flank pain following a recent stent placement. ??At the time of your evaluation your pain is tentatively believed to be due to your recent procedure. ??You may take acetaminophen as directed on the bottle for baseline pain control 400 mg ibuprofen every 6-8 hours as needed for additional pain control. ??Please do not take ibuprofen for more than 3-5 days.?Please contact your urologist tomorrow by phone for further careas needed. ??If you develop fevers, chills, or change in symptoms, please return to the emergency department. ??Please read and follow all of the instructions below. ?? Please follow up with your primary care physician??as needed. When calling for follow-up care, please make the office aware that this follow-up is from your recent emergency room visit.? Your care today was limited to identifying and treating emergent medical problems only. Many peoplehave subtle differences in their test results that require follow up with their outpatient physician(s) to correctly determine if this represents a normal variation or concerning abnormality with respect to your specific health.??The care given to you today was limited to identifying and treating emergent medical problems - you need to request a copy of all of your medical records from today's visit and follow up with your outpatient physician(s) to review both today's visit and your overall health. If you have any new symptoms or if you are at all concerned about your health please return immediately to the emergency department. ?? Prescriptions: If you are uninsured or have financial difficulties with filling your prescription(s), you may consider using a free pharmacy discount service such as [employer] ([employer]) or [employer] ([employer]). These services allow you to search for a medication on your phone (or computer) and obtain a coupon that usually has a significant discount from the list dumont at a pharmacy. Your physician does not have a financial relationship with either of these services. You may also wish to speak with your physician to determine if lower cost prescriptions are possible. ?? Acetaminophen (Tylenol) ?Please take 1,000 mg every 6 hours as needed for pain.?Do no use with alcohol or other??acetaminophen??containing medications.? SIDE EFFECTS: This drug usually has no side effects. If you do not have liver problems, the maximumdose of acetaminophen for adults is 4 grams per day (4000 milligrams). Taking more than the maximumdaily amount may cause serious (possibly fatal) liver damage. Get medical help right away if you have any of the following symptoms of liver damage: persistent nausea/vomiting, extreme tiredness, stomach/abdominal pain, yellowing eyes/skin, dark urine. If you have liver problems, consult your doctor or pharmacist for a safe dosage of this medication. A very serious allergic reaction to this drug is rare. However, get medical help right away if you notice any symptoms of a serious allergic reacti on, including: rash, itching/swelling (especially of the face/tongue/throat), severe dizziness, trouble breathing. This is not a complete list of possible side effects. If you notice other effects not listed above, contact your doctor or pharmacist. Ibuprofen (Brand Names: Motrin, Advil) ?Take 400 mg with a glass of water every 6 to 8 hours as needed for pain or fever. ?Do not take for more than 10 days.?This medication may cause a mildly upset stomach, if so take it with a small snack. Stop taking it if you have persistent abdominal pain, heartburn, or any stomach pain. Do not take this medication if you have known ulcers.?Do not take with Naproxen Sodium (brand name: Aleve) or other non-steroidal antiiflammatory medications that you may be prescribed (e.g. Diclofenac, Etodolac, Indomethicin) ?? WARNING: This drug may infrequently cause serious (rarely fatal) bleeding from the stomach or intestines. Also, related drugs rarely have caused blood clots to form, resulting in heart attacks and strokes. This medication might also rarely cause similar problems. Talk to your doctor or pharmacist about the benefits and risks of treatment, as well as other possible medication choices. If you notice any of the following rare but very serious side effects, stop taking ibuprofen and seek immediate medical attention: black stools, persistent stomach/abdominal pain, vomit that looks like coffee grounds, chest pain, weakness on one side of the body, sudden vision changes, slurred speech.? SIDE EFFECTS: Upset stomach, nausea, vomiting, heartburn, headache, diarrhea, constipation, drowsiness, and dizziness may occur. If any of these effects persist or worsen, notify your doctor or pharmacist promptly. If your doctor has directed you to use this medication, remember that he or she has judged that the benefit to you is greater than the risk of side effects. Many people using this medication do not have serious side effects. Tell your doctor immediately if any of these serious side effects occur: stomach pain, swelling of the hands or feet, sudden or unexplained weight gain, ringing in the ears (tinnitus). Tell your doctor immediately if any of these unlikely but serious side effects occur: vision changes, rapid or pounding heartbeat, easy bruising or bleeding, difficult/painful swallowing. Tell your doctor immediately if any of these highly unlikely but very serious side effects occur: change in amount of urine, severe headache, very stiff neck, mental/mood changes, persistent sore throat or fever. This drug may rarely cause serious (possibly fatal) liver disease. If you notice any of the following highly unlikely but very serious side effects, stop taking ibuprofen and consult your doctor or pharmacist immediately: yellowing eyes and skin, dark urine, unusual/extreme tiredness. An allergic reaction to this drug is unlikely, but seek immediate medical attention if it occurs. Symptoms of an allergic reaction include: rash, itching/swelling (especially of the face/tongue/throat), severe dizziness, trouble breathing. This is not a complete list of possible side effects.? DRUG INTERACTIONS: Your healthcare professionals (e.g., doctor or pharmacist) may already be aware of any possible drug interactions and may be monitoring you for it. Do not start, stop or change thedosage of any medicine before checking with them first. This drug should not be used with the following medications because very serious interactions may occur: cidofovir, ketorolac. If you are currently using any of these medications listed above, tell your doctor or pharmacist before starting ibuprofen. Before using this medication, tell your doctor or pharmacist of all prescription and nonprescription/herbal products you may use, especially of: anti-platelet drugs (e.g., cilostazol, clopidogrel), oral bisphosphonates (e.g., alendronate), other medications for arthritis (e.g., aspirin, methotrexate), blood thinners (e.g., enoxaparin, heparin, warfarin), corticosteroids (e.g., prednisone), cyclosporine, desmopressin, high blood pressure drugs (including YANDEL inhibitors such as captopril, angiotensin II receptor antagonists such as losartan, and beta-blockers such as metoprolol), lithium, pemetrexed, water pills (diuretics such as furosemide, hydrochlorothiazide, triamterene). Check all prescription and nonprescription medicine labels carefully for other pain/fever drugs (NSAIDs such as aspirin, celecoxib, naproxen). These drugs are similar to ibuprofen, so taking one of these drugs while also taking ibuprofen may increase your risk of side effects. Consult your doctor or pharmacist for more details. However, if your doctor has prescribed low doses of aspirin to prevent heart attack or stroke (usually at dosages of 81-325 milligrams a day), you should continue to take theaspirin. Daily use of ibuprofen may decrease aspirin's ability to prevent heart attack/stroke. Talkto your doctor about using a different medication (e.g., acetaminophen) to treat pain/fever. If youmust take ibuprofen, talk to your doctor about possibly taking immediate-release aspirin (not enteric-coated) while also taking the ibuprofen dose apart from your aspirin dose. Do not increase your daily dose of aspirin or change the way you take aspirin/other medications without your doctor's approval. This document does not contain all possible interactions. Therefore, before using this product, tell your doctor or pharmacist of all the products you use. Keep a list of all your medications with you, and share the list with your doctor and pharmacist. ?? Discharge Vitals Temperature??(Temporal Artery) 97.5 ??F (36.4 ??C) Heart Rate??(Monitored) 94 Respiratory Rate?? 20 Blood Pressure?? 135/77?? SpO2?? 97% Height?? 66.14 in (168 cm) Height?? 66.14 in (168 cm) Weight?? 465.08 lb (210.92 kg) BMI?? 74.73 BMI?? 74.73 Allergies Zoloft??(Chest pain) adenosine??(Rapid heart beat) buPROPion gabapentin What to Do Next Upcoming Scheduled Appointments Friday 10:15 AM EST ?? With: Bernarda Aguilar [employer] Where: [facility] [address] [place] [address] Status: Confirmed You were treated today [...] by mouth) 3 times a day Unchanged doxycycline 100 Milligrams 2 times a day Unchanged dulaglutide (Trulicity Pen [...] 500 Milligrams 2 times a day Unchanged oxyCODONE (oxyCODONE 10 mg oral tablet) 1 tab Oral (given by mouth) Every 6 hours as needed for as needed for pain Hematuria Unchanged phenazopyridine (Pyridium 200 mg oral tablet) 1 tab Oral (given by mouth) 3 times a day after meals Duration: 3 Days Unchanged potassium chloride (Potassium Chloride (Rdu-Nncm-Dac 10) 10 mEq oral tablet, extended release) 4 tabs Oral (given by mouth) Every day Atrial fibrillation Unchanged prucalopride (Motegrity) Unchanged sulfamethoxazole-trimethoprim (Bactrim) 600 Milligrams 2 times a day Unchanged torsemide (torsemide 40 mg oral tablet) 1 tab Oral (given by mouth) Every day Atrial fibrillation Tests Performed Medications and Immunizations Administered Given acetaminophen, 1000 mg, IV Piggyback NS bolus, 500 mL, Hydration Bolus Toradol, 15 mg, IV Push Lab Test Name Test Result Date/Time WBC 10.8 x10^3/mcL 04/09/2024 22:57 EDT RBC 5.1 x10^6/mcL 04/09/2024 22:57 EDT Hgb 14.2 g/dL 04/09/2024 22:57 EDT Hct 43.4 % 04/09/2024 22:57 EDT MCV 84.6 fL 04/09/2024 22:57 EDT MCH 27.7 pg 04/09/2024 22:57 EDT MCHC 32.7 g/dL 04/09/2024 22:57 EDT RDW-CV 14.8 % 04/09/2024 22:57 EDT Platelets 190 x10^3/mcL 04/09/2024 22:57 EDT Segs Man 86 % 04/09/2024 22:57 EDT Lymph Man 11 % 04/09/2024 22:57 EDT [place] Man 2 % 04/09/2024 22:57 EDT Eos Man 0 % 04/09/2024 22:57 EDT Baso Man 0 % 04/09/2024 22:57 EDT Band Man 1 % 04/09/2024 22:57 EDT Abs Neut Man 9.4 x10^3/mcL 04/09/2024 22:57 EDT RBC Morph Normal 04/09/2024 22:57 EDT Slide Review Man Diff 04/09/2024 22:57 EDT Sodium Level 134 mmol/L 04/09/2024 22:57 EDT Potassium Level 4.9 mmol/L 04/09/2024 22:57 EDT Chloride Level 99 mmol/L 04/09/2024 22:57 EDT CO2 26 mmol/L 04/09/2024 22:57 EDT Alk Phos 74 unit/L 04/09/2024 22:57 EDT AST 36 unit/L 04/09/2024 22:57 EDT ALT 47 unit/L 04/09/2024 22:57 EDT BUN 12 mg/dL 04/09/2024 22:57 EDT Glucose Level 162 mg/dL 04/09/2024 22:57 EDT Creatinine Level 1.15 mg/dL 04/09/2024 22:57 EDT eGFR AA 76 04/09/2024 22:57 EDT eGFR Non-AA 76 04/09/2024 22:57 EDT Calcium Level 9.9 mg/dL 04/09/2024 22:57 EDT Protein Total 7.9 g/dL 04/09/2024 22:57 EDT Albumin Level 3.4 g/dL 04/09/2024 22:57 EDT Bilirubin Total 0.7 mg/dL 04/09/2024 22:57 EDT UA Color Dark Yello 04/09/2024 23:52 EDT UA Appear Hazy- Clinitek 04/09/2024 23:52 EDT UA Glucose NEGATIVE 04/09/2024 23:52 EDT UA Bili 1+ 04/09/2024 23:52 EDT UA Ketones NEGATIVE 04/09/2024 23:52 EDT UA Spec Grav 1.015 04/09/2024 23:52 EDT UA Blood 3+ 04/09/2024 23:52 EDT UA pH 7.0 04/09/2024 23:52 EDT UA Protein 2+ 04/09/2024 23:52 EDT UA Urobilinogen 0.2 Uro 04/09/2024 23:52 EDT UA Nitrite NEGATIVE 04/09/2024 23:52 EDT UA Leuk Est TRACE. 04/09/2024 23:52 EDT UA Culture Ind?. Indicated 04/09/2024 23:52 EDT UA WBC 5-10 04/09/2024 23:52 EDT UA RBC >100 04/09/2024 23:52 EDT UA Squam Epithelial Rare 04/09/2024 23:52 EDT UA Mucous None Seen 04/09/2024 23:52 EDT UA Bacteria Few 04/09/2024 23:52 EDT Patient/Organic Chemist Signature Patient Name:KAELA GRAY I have received this information and my questions have been answered. Patient/Organic Chemist Name: Patient/Organic Chemist Signature: Relationship to Patient: Witness Name/Signature: Date: Electronically Signed on: 04/10/2024 01:12 EDTSigned by:DALTON Emergency department Note * Fadia Sevilla M: PERFORM Event Display: ED Notes Authored Date: Patient Care team information Care Team Personnel Name: Suresh Roth MD Position: Physician Member Role: Informed Provider Address: Address: [address] [place] [id number] [place] Name: Bin Boyce MD Position: No Access Member Role: Primary Care Physician Address: Address: [facility] [address] [place] [address]- Care Team Related Persons Name: MASON GRAY Address: Home [address] [facility], [id number]
--- OUTSIDE RECORDS SUMMARY | 2024-05-17 14:29 | XMS_ITS | Continuity of Care Document ---
Author Name Unknown Organization [facility] Address [address] [place] [address] Care Team Providers Care Solar Energy Specialist Name Role Phone [facility] Encounter [facility] [id number] Date(s): 02/23/24 - 02/23/[address] [id number] Discharge Disposition: Home or Self Care Attending Physician: Rachel Carrasco MD Admitting Physician: Rachel Carrasco MD Referring Physician: Rachel Carrasco MD Allergies, Adverse Reactions, Alerts Substance Reaction Severity Status adenosine 1 Rapid heart beat Severe Active gabapentin Unknown Active buPROPion Unknown Active Zoloft Chest pain Severe Active 1PT had an adverse reaction HR went up to 250%27s Assessment and Plan Future Appointments Diagnostic Tests Pending * Urine Culture 02/23/24 Future Scheduled Tests Laboratory* Basic Metabolic Panel [...] BID, # 180 tab, 4 Refill(s), Pharmacy: [facility], 168, cm, 11/17/22 13:46:00 EST, Height/Length Dosing, 210, kg, 11/17/22 13:46:00 EST, Weight Dosing Start Date: 06/24/23 Stop Date: 09/16/24 Status: Ordered Potassium Chloride ([id number]-[id number] 10) 10 mEq oral tablet, extended release 4 tabs, Oral, Daily, # 360 tab, 3 Refill(s), Pharmacy: [facility], 167.64, cm, 10/06/23 12:44:00 EST, Height, 204.12, kg, 10/06/23 12:54:00 EST, Weight Dosing Start Date: 10/31/23 Status: Ordered Pyridium 200 mg oral tablet 200 mg = 1 tab, Oral, TID(PC), # 9 tab, 0 Refill(s), Pharmacy: [facility], 168, cm, 11/17/22 13:46:00 EST, Height/Length Dosing, 210, kg, 11/17/22 13:46:00 EST, Weight Dosing Start Date: 11/17/22 Stop Date: 11/20/22 Status: Ordered torsemide 40 mg oral tablet 40 mg = 1 tab, Oral, Daily, # 90 tab, 4 Refill(s), Pharmacy: [facility], 167.64, cm, 09/30/23 13:19:00 EST, Height, 206.6, [...] tachycardia Confirmed 11/28/20 Active 1CPAP 7-3 cm Gate/Adapt Procedures Procedure Date Related Diagnosis Body Site Status Cardiac ablation using fluor oscopy guidance 1 01/10/21 Completed Cardiac catheterization 2 01/10/21 Completed Tonsillectomy Completed Results Laboratory List Name Date Creatinine 02/23/24 Most recent to oldest [Reference Range]: 1 eGFR Non-AA [>=60] 76 (02/23/24 9:57 AM) eGFR AA [>=60] 76 (02/23/24 9:57 AM) Creatinine Level [0.70-1.30 mg/dL] 1.14 mg/dL (02/23/24 9:57 AM) Social History Social History Type Response Smoking Status Smoking tobacco use: Former tobacco user;Former smokeless tobacco user, quit more than 30 days ago; Number of years: 15; entered on: 10/06/23 Sex Male Patient Care team information Care Team Personnel Name: Suresh Roth MD Position: Physician Member Role: Informed Provider Address: Address: [address] [place] [id number]- Name: Bin Boyce MD Position: No Access Member Role: Primary Care Physician Address: Address: [facility] [address] [place], [place] [id number] [place] [address] Care Team Related Persons Name: MASON GRAY Address: Home [address] [facility], [id number]
--- OUTSIDE RECORDS SUMMARY | 2024-05-17 14:29 | XMS_ITS | Continuity of Care Document ---
Author Name Unknown Organization [facility] Address [address] [place] [address] Care Team Providers Care Sales Operations Associate Name Role Phone Bin Boyce Primary Care Physician Encounter [facility] [id number] Date(s): 04/03/24 - 04/03/[address] [address] Encounter Diagnosis Hematuria(Discharge Diagnosis) - 04/03/24 Discharge Disposition: Home or Self Care Attending Physician: Carlos Elizabeth MD Admitting Physician: Carlos Elizabeth MD Allergies, Adverse Reactions, Alerts Substance Reaction Severity Status adenosine 1 Rapid heart beat Severe Active buPROPion Unknown Active Zoloft Chest pain Severe Active gabapentin Unknown Active 1PT had an adverse reaction HR went up to 250%27s Assessment and Plan Extracted from: Title:Clinical Document Author:Yaquelin Salas te:04/03/24 Diagnosis: 1. Hematuria Comment: Diagnosis: Flank pain Comment: Diagnosis: Hematuria Comment: Extracted from: Title:ED Provider Note Author:Carlos Elizabeth MD Date:04/03/24 Assessment/Plan 1.??Hematuria??R31.9 Ordered: oxyCODONE 10 mg oral tablet, 10 mg = 1 tab, Oral, every 6 hr, PRN as needed for pain, # 12 tab, 0 Refill(s), 04/15/24 13:57:00 EDT Discharge Patient, 04/03/24 13:57:00 EDT, Home Independently, Constant Indicator ?? Patient Education Hematuria, Adult Follow Up With When Contact Information Bin Boyce MD Within 1 to 2 weeks [facility] [address] [facility] [place] [phone] ?? Additional Instructions: Future Appointments Future Scheduled Tests Laboratory* Basic Metabolic Panel 11/06/23 Functional Status 04/03/24 Family Member Travel History No recent t [...] BID, # 180 tab, 4 Refill(s), Pharmacy: [id number], 168, cm, 11/17/22 13:46:00 [...] Date: 04/03/24 Stop Date: 04/15/24 Status: Ordered oxyCODONE 10 mg oral tablet 10 mg = 1 tab, Oral, every 6 hr, PRN as needed for pain, # 15 tab, 0 Refill(s), 04/06/24 3:18:00 PM CDT Start Date: 03/16/24 Stop Date: 04/06/24 Status: Ordered Potassium Chloride (Mdq-Kcug-Aoj 10) 10 mEq oral tablet, extended release 4 tabs, Oral, Daily, # 360 tab, 3 Refill(s), Pharmacy: [id number], 167.64, cm, 10/06/23 12:44:00 EST, Height, 204.12, kg, 10/06/23 12:54:00 EST, Weight Dosing Start Date: 10/31/23 Status: Ordered Pyridium 200 mg oral tablet 200 mg = 1 tab, Oral, TID(PC), # 9 tab, 0 Refill(s), Pharmacy: [id number], 168, cm, 11/17/22 13:46:00 EST, Height/Length Dosing, 210, kg, 11/17/22 13:46:00 EST, Weight Dosing Start Date: 11/17/22 Stop Date: 11/20/22 Status: Ordered torsemide 40 mg oral tablet 40 mg = 1 tab, Oral, Daily, # 90 tab, 4 Refill(s), Pharmacy: [id number], 167.64, cm, 09/30/23 13:19:00 EST, Height, 206.6, kg, 09/30/23 13:30:00 EST, Weight Dosing Start Date: 09/30/23 Status: Ordered Trulicity Pen 3 mg/0.5 mL subcutaneous solution 3 mg = 0.5 mL, Subcutaneous, every week, rotate injection sites, # 2 mL, 0 Refill(s) Start Date: 09/30/23 Status: Ordered Mental Status 04/03/24 Eye Opening Response [place] Spontaneous ly Best Verbal Response [place] Oriented Best Motor Response [place] Obeys comman ds [place] Coma Score 15 Problem List Condition Confirmation [...] Tonsillectomy Completed Results Laboratory List Name Date CBC w/ Diff 04/03/24 Comprehensive Metabolic Panel (CMP) 04/03 Urinalysis Microscopic 04/03/24 Urinalysis with Micro if Indicated and C ulture if Indicated 04/03/24 Automated Diff 04/03/24 Most recent to oldest [Reference Range]: 1 WBC [5.0-10.0 x10^3/mcL] 9.4 x10^3/mcL (04/03/24 12:02 PM) RBC [4.6-6.0 x10^6/mcL] 5.0 x10^6/mcL (04/03/24 12:02 PM) Neutro Auto [40.0-75.0 %] 58.7 % (04/03/24 12:02 PM) Lymph Auto [20.0-50.0 %] 26.6 % (04/03/24 12:02 PM) Benton Auto [2.0-15.0 %] 8.0 % (04/03/24 12:02 PM) Basophil Auto [0.0-1.0 %] 0.7 % (04/03/24 12:02 PM) BUN [7-18 mg/dL] 9 mg/dL (04/03/24 12:02 PM) UA Color Yellow (04/03/24 12:02 PM) UA WBC [0-3] 0-3 (04/03/24 12:02 PM) Glucose Level [74-106 mg/dL] 113 mg/dL *HI* (04/03/24 12:02 PM) Potassium Level [3.5-5.1 mmol/L] 3.6 mmo l/L (04/03/24 12:02 PM) MCV [80.0-96.0 fL] 85.9 fL (04/03/24 12:02 PM) UA Urobilinogen Normal (04/03/24 12:02 PM) UA Bili [Negative] Negative (04/03/24: PM) UA Ketones Negative (04/03/24 PM) AST [15-37 unit/L] 31 unit/L (04/03/24 12: PM) ALT [16-63 unit/L] 45 unit/L (04/03/24: PM) MCHC [31.0-35.0 g/dL] 32.5 g/dL (04/03/24: PM) Sodium Level [136-145 mmol/L] 139 mmol/L (04/03/24 12: PM) UA RBC [0-2] >100 (04/03/24 PM) UA Leuk Est Negative (04/03/24: PM) UA Nitrite Negative (04/03/24 PM) UA Glucose [Negative] Negative (04/03/24 PM) Hct [41.0-51.0 %] 43.4 % (04/03/24: PM) UA Bacteria None Seen /HPF (04/03/24 PM) Calcium Level [8.5-10.1 mg/dL] 9.0 mg/dL (04/03/24 PM) Albumin Level [3.4-5.0 g/dL] 3.3 g/dL *LOW* (04/03/24: PM) Protein Total [6.4-8.2 g/dL] 7.5 g/dL (04/03/24: PM) UA Protein Negative (04/03/24: PM) MCH [26.0-32.0 pg] 27.9 pg (04/03/24 12:02 PM) Neutro Absolute 5.5 x10^3/mcL *NA* (04/03/24: PM) Bilirubin Total [0.2-1.0 mg/dL] 0.4 mg/d L (04/03/24 12: PM) Hgb [14.0-18.0 g/dL] 14.1 g/dL (04/03/24:02 PM) Alk Phos [46-146 unit/L] 76 unit/L (04/03/24 12:02 PM) UA Blood 3+ *NA* (04/03/24 12: PM) UA Mucous None Seen /HPF (04/03/24 12: PM) UA Spec Grav <=1.005 *NA* (04/03/24: PM) Platelets [130-450 x10^3/mcL] 187 x10^3/ mcL (04/03/24 12: PM) CO2 [21-32 mmol/L] 26 mmol/L (04/03/24 12: PM) UA Squam Epithelial [None Seen] Rare (04/03/24 12: PM) UA pH 5.5 *NA* (04/03/24: PM) eGFR Non-AA [>=60] 94 (04/03/24 12: PM) eGFR AA [>=60] 94 (04/03/24 12:02 PM) UA Appear Clear (04/03/24: PM) Chloride Level [98-107 mmol/L] 103 mmol/ L (04/03/24: PM) RDW-CV [11.5-14.5 %] 15.2 % *HI* (04/03/24 12: PM) Imm Gran Auto [0.0-0.9 %] 0.6 % (04/03/24 12: PM) Slide Review Not Indicated (04/03/24: PM) UA Culture Ind?. Not Indicated (04/03/24 12: PM) Creatinine Level [0.70-1.30 mg/dL] 0.96 mg/dL (04/03/24: PM) Eos, Auto [1.0-6.0 %] 5.4 % (04/03/24 12: PM) Vital Signs Most recent to oldest [Reference Range]: 1 Temperature Temporal Artery [36-38 Deg C ] 36.2 Deg C (04/03/24 11:42 AM) Peripheral Pulse Rate [60-100 bpm] 57 bp m *LOW* (04/03/24 11:42 AM) Respiratory Rate [12-24 br/min] 17 br/mi n (04/03/24 11:42 AM) Blood Pressure [90-140/60-90 mmHg] 148/8 4mmHg *HI* (04/03/24 11:42 AM) Mean Arterial Pressure, Cuff [65-140 mmH g] 105 mmHg (04/03/24 11:42 AM) Weight Estimated 211 kg (04/03/24 11:42 AM) Body Mass Index Estimated 75.66 kg/m2 (04/03/24 11:42 AM) Height/Length Estimated 167 cm (04/03/24 11:42 AM) Social History Social History Type Response Smoking Status Smoking tobacco use: Former tobacco user;Former smokeless tobacco user, quit more than 30 days ago; Number of years: 15; entered on: 10/06/23 Sex Male Hospital Discharge Instructions Patient Education 04/03/2024 12:59:47 Hematuria, Adult Hematuria, Adult Hematuria is blood [...] these instructions at home: Medicines ??? Take kxjf-ojs-ogqkcsu and prescription medicines only as told by [...] the blood stops without treatment. ??? Take kyah-elu-tfsblky and prescription medicines only as told by your health care provider. ??? Drink enough fluid to keep your urine pale yellow. This information is not intended to replace advice given to you by your health care provider. Make sure you discuss any questions you have with your health care provider. Document Revised: 06/27/2021 Document Reviewed: 06/27/2021 Elsevier Patient Education ?? 2022 [employer]. Follow Up Care 04/03/2024 11:41:25 With:Bin Boyce MD Address: [address] [address] [phone] When:1 to 2 weeks Physician Emergency department Note * Carlos Elizabeth MD: PERFORM Event Display: ED Note Physician Authored Date: [id number] KAELA GRAY :1970 Age:53 years Sex:Male Visit Date:04/03/2024 Primary Care Physician: Bin Boyce MD Basic Information Time Seen: Carlos Elizabeth MD / 04/03/2024 11:44 Chief Complaint I have right flank pain, I have surgery at [facility] next friday to have kidney stone removed and to also look in my bladder to see if anything else is going on. Tylenol last night. I'm on two antibiotics for H Pylori prescribed by [facility] History Of Present Illness: 53-year-old male past medical history obesity, atrial fibrillation on Eliquis, kidney stones, SVT??presents with??hematuria. ??He had a recent diagnosis of??kidney stones, is set to follow-up with??urology in a couple of days. ??Had sudden onset dinesh hematuria which brought the patient back to theER here. ??Has some residual right-sided flank pain. ??No fevers vomiting or any other recent symptoms, no abdominal pain. Review of Systems: Flank pain, hematuria Physical Exam Vitals & Measurements T:??36.2?C ??(Temporal Artery)?? HR:??57??(Peripheral)?? RR:??17?? BP:??148/84?? SpO2:??100%?? HT:??167??cm?? WT:??211??kg??(Estimated)?? BMI:??75.66?? Pain Score:??8?? O2 Therapy:??Room air?? General: Alert and oriented, well nourished,?No??acute distress Eye: PERRL, EOMI,?Normal?conjunctiva HENT: Normocephalic Lungs: Clear to auscultation and percussion,?Non-labored?? respiration Heart:?Normal? rate,?Regular??rhythm Abdomen: Soft, non-tender, non-distended Psychiatric: Cooperative, appropriate mood and affect Medical Decision Makin-year-old male past medical history as above presents with hematuria, on Eliquis for atrial fibrillation. ??He has been following up with urology at [facility] for??a right-sided 2 mm kidney stone, was here for pain control within the last couple of weeks, has an appointment with [facility] in a couple of days for cystoscopy,??direct visualization of the urinary tract and??possible stenting for kidney stone.?? He had an episode of??hematuria earlier today which is why came back to the ER. ??Vitals are stable. ??Patient's pain??is about 7-8 out of 10, he was given 15 mg of oxycodone and Tylenol. ??His body habitus is too large for us to fit him into the CT scanner here. ??At this time he is r elatively comfortable after oxycodone and pain is controlled. ??His UA does not show infection, does redemonstrate hematuria. ??Labs are reassuring. ??Patient is not presenting with a UTI. ??He most likely has the hematuria from a lingering kidney stone. ??He will be having a cystoscopy to further evaluate for any??intraluminal issues or??lesions or masses??within a couple of days.?? His urine did seem to clear up??pretty while here in the??ER??and did not have any dinesh??red blood. ??He is given oxycodone as needed for his pain control for what is most likely a kidney stone causing his issues.?? Discharged in stable condition with return precautions ED and will follow-up with [facility] urology in a couple of days. Procedure No Qualifying Data Assessment/Plan 1.??Hematuria??R31.9 Ordered: oxyCODONE 10 mg oral tablet, 10 mg = 1 tab, Oral, every 6 hr, PRN as needed for pain, # 12 tab, 0 Refill(s), 04/15/24 13:57:00 EDT Discharge Patient, 04/03/24 13:57:00 EDT, Home Independently, Constant Indicator ?? Patient Education Hematuria, Adult Follow Up With When Contact Information [facility], Bin Moe MD Within 1 to [address] [phone] Additional Instructions: Medication Reconciliation Changed oxyCODONE (oxyCODONE 10 mg oral tablet)1 tab Oral (given by mouth) every 6 hours as needed as needed for pain. Refills: 0. ?? oxyCODONE (oxyCODONE 10 mg oral tablet)1 tab Oral (given by mouth) every 6 hours as needed as needed for pain. Refills: 0. ?? Unchanged apixaban (Eliquis 5 mg oral tablet)1 tab Oral (given by mouth) 2 times a day. ?? aspirin (aspirin 81 mg oral capsule)1 Capsules Oral (given by mouth) every day. do not exceed 48 capsules in 24 hours. ?? clonazePAM (clonazePAM 1 mg oral tablet)1 tab Oral (given by mouth) 3 times a day. ?? [id number] Milligrams 2 times a day. ?? dulaglutide (Trulicity Pen [...] day for 90 Days. Refills: 4. ?? [id number] Milligrams 2 times a day. ?? phenazopyridine (Pyridium 200 mg oral tablet)1 tab Oral (given by mouth) 3 times a day after meals for 3 Days. Refills: 0. ?? potassium chloride (Potassium Chloride (Fso-Egqr-Mny 10) 10 mEq oral tablet, extended release)4 tabs Oral (given by mouth) every day. Refills: 3. ?? prucalopride (Motegrity) ?? sulfamethoxazole-trimethoprim (Bactrim)600 Milligrams 2 times a day. ?? torsemide (torsemide 40 mg oral tablet)1 tab Oral (given by mouth) every day. Refills: 4. Problem List/Past Medical History Ongoing Atrial fibrillation Coronary arteriosclerosis Epigastric pain Hypertensive disorder Morbid obesity Nocturnal dyspnea Obstructive sleep apnea syndrome Supraventricular tachycardia Historical No qualifying data Procedure/Surgical History ???Cardiac ablation using fluoroscopy guidance (01/11/2021)???Cardiac catheterization (01/11/2021)???Tonsillectomy Medication Administration Given oxyCODONE 5 mg oral tablet, 15 mg, Oral Tylenol, 1000 mg, Oral Allergies Zoloft??(Chest pain) adenosine??(Rapid heart beat) buPROPion [...] Myocardial infarction: Father and Brother. Lab Results CBC and Differential?? LATEST RESULTS?? HISTORICAL RESULTS?? WBC?? 04/03/24 12:02?? 9.4?? 03/16/24?? 8.5?? RBC?? 04/03/24 12:02?? 5.0?? 03/16/24?? 5.2?? Hgb?? 04/03/24 12:02?? 14.1?? 03/16/24?? 14.5?? Hct?? 04/03/24 12:02?? 43.4?? 03/16/24?? 45.2?? MCV?? 04/03/24 12:02?? 85.9?? 03/16/24?? 86.8?? MCH?? 04/03/24 12:02?? 27.9?? 03/16/24?? 27.8?? MCHC?? 04/03/24 12:02?? 32.5?? 03/16/24?? 32.1?? RDW-CV?? 04/03/24 12:02?? 15.2 ??High?? 03/16/24?? 14.9 ??High?? Platelets?? 04/03/24 12:02?? 187?? 03/16/24?? 204?? Neutro Auto?? 04/03/24 12:02?? 58.7?? 03/16/24?? 64.5?? Lymph Auto?? 04/03/24 12:02?? 26.6?? 03/16/24?? 24.9?? Benton Auto?? 04/03/24 12:02?? 8.0?? 03/16/24?? 7.5?? Eos, Auto?? 04/03/24 12:02?? 5.4?? 03/16/24?? 2.0?? Basophil Auto?? 04/03/24 12:02?? 0.7?? 03/16/24?? 0.6?? Imm Gran Auto?? 04/03/24 12:02?? 0.6?? 03/16/24?? 0.5?? Neutro Absolute?? 04/03/24 12:02?? 5.5?? 03/16/24?? 5.5?? Slide Review?? 04/03/24 12:02?? Not Indicated?? 12/24/23?? Not Indicated? Routine Chemistry?? LATEST RESULTS?? HISTORICAL RESULTS?? Sodium Level?? 04/03/24 12:02?? 139?? 03/16/24?? 142?? Potassium Level?? 04/03/24 12:02?? 3.6?? 03/16/24?? 3.8?? Chloride Level?? 04/03/24 12:02?? 103?? 03/16/24?? 103?? CO2?? 04/03/24 12:02?? 26?? 03/16/24?? 28?? Alk Phos?? 04/03/24 12:02?? 76?? 03/16/24?? 74?? AST?? 04/03/24 12:02?? 31?? 03/16/24?? 32?? ALT?? 04/03/24 12:02?? 45?? 03/16/24?? 39?? BUN?? 04/03/24 12:02?? 9?? 03/16/24?? 9?? Glucose Level?? 04/03/24 12:02?? 113 ??High?? 03/16/24?? 137 ??High?? Creatinine Level?? 04/03/24 12:02?? 0.96?? 03/16/24?? 1.21?? eGFR AA?? 04/03/24 12:02?? 94?? 03/16/24?? 71?? eGFR Non-AA?? 04/03/24 12:02?? 94?? 03/16/24?? 71?? Calcium Level?? 04/03/24 12:02?? 9.0?? 03/16/24?? 9.4?? Protein Total?? 04/03/24 12:02?? 7.5?? 03/16/24?? 7.8?? Albumin Level?? 04/03/24 12:02?? 3.3 ??Low?? 03/16/24?? 3.3 ??Low?? Bilirubin Total?? 04/03/24 12:02?? 0.4?? 03/16/24?? 0.4? UA Macroscopic?? LATEST RESULTS?? HISTORICAL RESULTS?? UA Color?? 04/03/24 12:02?? Yellow?? 03/16/24?? Yellow?? UA Appear?? 04/03/24 12:02?? Clear?? 03/16/24?? Hazy Abnormal?? UA Glucose?? 04/03/24 12:02?? Negative?? 03/16/24?? Negative?? UA Bili?? 04/03/24 12:02?? Negative?? 03/16/24?? 1+ Abnormal?? UA Ketones?? 04/03/24 12:02?? Negative?? 03/16/24?? Negative?? UA Spec Grav?? 04/03/24 12:02?? <=1.005?? 03/16/24?? >=1.030?? UA Blood?? 04/03/24 12:02?? 3+?? 03/16/24?? 3+ Abnormal?? UA pH?? 04/03/24 12:02?? 5.5?? 03/16/24?? 5.5?? UA Protein?? 04/03/24 12:02?? Negative?? 03/16/24?? 1+ Abnormal?? UA Urobilinogen?? 04/03/24 12:02?? Normal?? 03/16/24?? Normal?? UA Nitrite?? 04/03/24 12:02?? Negative?? 03/16/24?? Negative?? UA Leuk Est?? 04/03/24 12:02?? Negative?? 03/16/24?? Negative?? UA Culture Ind?.?? 04/03/24 12:02?? Not Indicated?? 03/16/24?? Not Indicated? UA Microscopic?? LATEST RESULTS?? HISTORICAL RESULTS?? UA WBC?? 04/03/24 12:02?? 0-3?? 03/16/24?? 0-3?? UA RBC?? 04/03/24 12:02?? >100?? 03/16/24?? 10-25?? UA Squam Epithelial?? 04/03/24 12:02?? Rare?? 03/16/24?? Few Abnormal?? UA Mucous?? 04/03/24 12:02?? None Seen?? 03/16/24?? Moderate Abnormal?? UA Bacteria?? 04/03/24 12:02?? None Seen?? 03/16/24?? Rare? Electronically Signed on 04/03/2024 14:10 EDT Carlos Elizabeth MD Emergency department Discharge instructions * Carlos Elizabeth MD: PERFORM Event Display: ED Discharge Information Authored Date: [id number] KAELA GRAY :1970 Age:53 years Sex:Male Visit Date:04/03/2024 Primary Care Physician: Bin Boyce MD Discharge Instructions We would like to thank you for allowing us to assist you with your healthcare needs. The following includes patient education materials and information regarding your injury/illness. Diagnosis from Today's Visit Hematuria Discharge Vitals Temperature??(Temporal Artery) 97.2 ??F (36.2 ??C) Heart Rate??(Peripheral) 57 Respiratory Rate?? 17 Blood Pressure?? 148/84?? SpO2?? 100% Height?? 65.75 in (167 cm) Weight??(Estimated) 465.26 lb (211 kg) BMI?? 75.66 Allergies Zoloft??(Chest pain) adenosine??(Rapid heart beat) buPROPion gabapentin What to Do Next Instructions from Your Care Team You are seen in the emergency department today for blood in the urine, or hematuria. ??There is no infection in the urine noted.?? You are given a prescription for oxycodone for pain,??only use for breakthrough pain.?? Please follow-up with your urologist for the continuation of your symptoms.?? Come back to the ER with any worsening symptoms. You Need to Schedule the Following Appointments Follow Up with??Bin Boyce MD When:??Within 1 to 2 weeks Where: [address] [phone] Upcoming Scheduled Appointments Friday 10:15 AM EST ?? With: Bernarda Aguilar BAG REPAIRER Where: [facility] [address] [place] [phone] Status: Confirmed You were treated today on [...] How Much When Why Instructions Next Dose Changed oxyCODONE (oxyCODONE 10 mg oral tablet) 1 tab Oral (given by mouth) Every 6 hours as needed for as needed for pain Kidney stone Hematuria Changed oxyCODONE (oxyCODONE 10 mg oral tablet) 1 tab Oral (given by mouth) Every 6 hours as needed for as needed for pain Hematuria Printed Prescription Unchanged apixaban (Eliquis 5 mg oral tablet) [...] 500 Milligrams 2 times a day Unchanged phenazopyridine (Pyridium 200 mg oral tablet) 1 tab Oral (given by mouth) 3 times a day after meals Duration: 3 Days Unchanged potassium chloride (Potassium Chloride (Npj-Bfit-Fvu 10) 10 mEq oral tablet, extended release) [...] these instructions at home: Medicines ? Take wran-yef-icokfdl and prescription medicines only as told by [...] the blood stops without treatment. ? Take fjpb-olb-vhufrkk and prescription medicines only as told by your health care provider. ? Drink enough fluid to keep your urine pale yellow. This information is not intended to replace advice given to you by your health care provider. Make sure you discuss any questions you have with your health care provider. Document Revised: 06/27/2021 Document Reviewed: 06/27/2021 [employer] Patient Education ?? 2022 [employer] Tests Performed Medications and Immunizations Administered Given oxyCODONE 5 mg oral tablet, 15 mg, Oral Tylenol, 1000 mg, Oral Lab Test Name Test Result Date/Time WBC 9.4 x10^3/mcL 04/03/2024 12:02 EDT RBC 5.0 x10^6/mcL 04/03/2024 12:02 EDT Hgb 14.1 g/dL 04/03/2024 12:02 EDT Hct 43.4 % 04/03/2024 12:02 EDT MCV 85.9 fL 04/03/2024 12:02 EDT MCH 27.9 pg 04/03/2024 12:02 EDT MCHC 32.5 g/dL 04/03/2024 12:02 EDT RDW-CV 15.2 % 04/03/2024 12:02 EDT Platelets 187 x10^3/mcL 04/03/2024 12:02 EDT Neutro Auto 58.7 % 04/03/2024 12:02 EDT Lymph Auto 26.6 % 04/03/2024 12:02 EDT Benton Auto 8.0 % 04/03/2024 12:02 EDT Eos, Auto 5.4 % 04/03/2024 12:02 EDT Basophil Auto 0.7 % 04/03/2024 12:02 EDT Imm Gran Auto 0.6 % 04/03/2024 12:02 EDT Neutro Absolute 5.5 x10^3/mcL 04/03/2024 12:02 EDT Slide Review Not Indicated 04/03/2024 12:02 EDT Sodium Level 139 mmol/L 04/03/2024 12:02 EDT Potassium Level 3.6 mmol/L 04/03/2024 12:02 EDT Chloride Level 103 mmol/L 04/03/2024 12:02 EDT CO2 26 mmol/L 04/03/2024 12:02 EDT Alk Phos 76 unit/L 04/03/2024 12:02 EDT AST 31 unit/L 04/03/2024 12:02 EDT ALT 45 unit/L 04/03/2024 12:02 EDT BUN 9 mg/dL 04/03/2024 12:02 EDT Glucose Level 113 mg/dL 04/03/2024 12:02 EDT Creatinine Level 0.96 mg/dL 04/03/2024 12:02 EDT eGFR AA 94 04/03/2024 12:02 EDT eGFR Non-AA 94 04/03/2024 12:02 EDT Calcium Level 9.0 mg/dL 04/03/2024 12:02 EDT Protein Total 7.5 g/dL 04/03/2024 12:02 EDT Albumin Level 3.3 g/dL 04/03/2024 12:02 EDT Bilirubin Total 0.4 mg/dL 04/03/2024 12:02 EDT UA Color YELLOW. 04/03/2024 12:02 EDT UA Appear CLEAR. 04/03/2024 12:02 EDT UA Glucose NEGATIVE 04/03/2024 12:02 EDT UA Bili NEGATIVE 04/03/2024 12:02 EDT UA Ketones NEGATIVE 04/03/2024 12:02 EDT UA Spec Grav <=1.005 04/03/2024 12:02 EDT UA Blood 3+ 04/03/2024 12:02 EDT UA pH 5.5 04/03/2024 12:02 EDT UA Protein NEGATIVE 04/03/2024 12:02 EDT UA Urobilinogen 0.2 Uro 04/03/2024 12:02 EDT UA Nitrite NEGATIVE 04/03/2024 12:02 EDT UA Leuk Est NEGATIVE 04/03/2024 12:02 EDT UA Culture Ind?. Not Indicated 04/03/2024 12:02 EDT UA WBC 0-3 04/03/2024 12:02 EDT UA RBC >100 04/03/2024 12:02 EDT UA Squam Epithelial Rare 04/03/2024 12:02 EDT UA Mucous None Seen 04/03/2024 12:02 EDT UA Bacteria None Seen 04/03/2024 12:02 EDT Patient/Application Architect Signature Patient Name:KAELA GRAY I have received this information and my questions have been answered. Patient/Application Architect Name: Patient/Application Architect Signature: Relationship to Patient: Witness Name/Signature: Date: Electronically Signed on: 04/03/2024 14:02 EDTSigned by:TRM Discharge summary * Yaquelin Salas: PERFORM Event Display: Discharge Note Authored Date: [id number] Diagnosis: 1. Hematuria Comment: Diagnosis: Flank pain Comment: Diagnosis: Hematuria Comment: Electronically Signed on 04/03/2024 14:16 EDT Yaquelin Salas Patient Care team information Care Team Personnel Name: Suresh Roth MD Position: Physician Member Role: Informed Provider Address: Address: [address] [place] [address]- Name: Bin Boyce MD Position: No Access Member Role: Primary Care Physician Address: Address: [address] Care Team Related Persons Name: MASON GRAY Address: Home [address] [facility], [phone]
--- OUTSIDE RECORDS SUMMARY | 2024-05-17 14:29 | XMS_ITS | Continuity of Care Document ---
Author Name Unknown Organization [facility] Address [address] [place] [address] Care Team Providers Care Pool Hall Inspector Name Role Phone [facility] Encounter [facility] Date(s): 03/16/24 - 03/16/[address] [address] Encounter Diagnosis Kidney stone(Discharge Diagnosis) - 03/16/24 Hematuria(Discharge Diagnosis) - 03/16/24 Discharge Disposition: Home or Self Care Attending Physician: Oliver Newton MD Admitting Physician: Oliver Newton MD Allergies, Adverse Reactions, Alerts Substance Reaction Severity Status adenosine 1 Rapid heart beat Severe Active gabapentin Unknown Active buPROPion Unknown Active Zoloft Chest pain Severe Active 1PT had an adverse reaction HR went up to 250%27s Assessment and Plan Extracted from: Title:ED Provider Note Author:Carlos Elizabeth MD Date:03/16/24 Assessment/Plan 1.??Kidney stone??N20.0 Ordered: oxyCODONE 10 mg oral tablet, 10 mg = 1 tab, Oral, every 6 hr, PRN as needed for pain, # 15 tab, 0 Refill(s), 04/06/24 16:18:00 EDT Discharge Patient, 03/16/24 15:59:00 EDT, Home Independently, Constant Indicator ?? 2.??Hematuria??R31.9 Ordered: oxyCODONE 10 mg oral tablet, 10 mg = 1 tab, Oral, every 6 hr, PRN as needed for pain, # 15 tab, 0 Refill(s), 04/06/24 16:18:00 EDT Discharge Patient, 03/16/24 15:59:00 EDT, Home Independently, Constant Indicator ?? Patient Education Hematuria, Adult Kidney Stones Follow Up With When Contact Information Follow up with specialist Within 1 to 2 weeks Additional Instructions: [facility] Urology - follow-up??according to their??recommendations [facility], Bin Moe MD Within 1 to [address] [phone] ?? Additional Instructions: Future Appointments Future Scheduled [...] BID, # 180 tab, 4 Refill(s), Pharmacy: [id number], 168, cm, 11/17/22 [...] Stop Date: 04/06/24 Status: Ordered Potassium Chloride (Okj-Ighw-Tyj 10) 10 mEq oral tablet, extended release 4 tabs, Oral, Daily, # 360 tab, 3 Refill(s), Pharmacy: [id number], 167.64, cm, 10/06/23 12:44:00 EST, Height, 204.12, kg, 10/06/23 12:54:00 EST, Weight Dosing Start Date: 10/31/23 Status: Ordered Pyridium 200 mg oral tablet 200 mg = 1 tab, Oral, TID(PC), # 9 tab, 0 Refill(s), Pharmacy: [id number], 168, cm, 11/17/22 13:46:00 EST, Height/Length Dosing, 210, kg, 11/17/22 13:46:00 EST, Weight Dosing Start Date: 11/17/22 Stop Date: 11/20/22 Status: Ordered torsemide 40 mg oral tablet 40 mg = 1 tab, Oral, Daily, # 90 tab, 4 Refill(s), Pharmacy: [id number], 167.64, cm, 09/30/23 [...] Tonsillectomy Completed Results Laboratory List Name Date Automated Diff 03/16/24 CBC w/ Diff 03/16/24 Comprehensive Metabolic Panel (CMP) Urinalysis Microscopic 03/16/24 Urinalysis with Micro if Indicated and C ulture if Indicated 03/16/24 Most recent to oldest [Reference Range]: 1 WBC [5.0-10.0 x10^3/mcL] 8.5 x10^3/mcL (03/16/24 11:41 AM) RBC [4.6-6.0 x10^6/mcL] 5.2 x10^6/mcL (03/16/24 11:41 AM) Neutro Auto [40.0-75.0 %] 64.5 % (03/16/24 11: AM) Lymph Auto [20.0-50.0 %] 24.9 % (03/16/24 11:41 AM) Green Auto [2.0-15.0 %] 7.5 % (03/16/24 11: AM) Basophil Auto [0.0-1.0 %] 0.6 % (03/16/24 11:41 AM) BUN [7-18 mg/dL] 9 mg/dL (03/16/24 11: AM) UA Color Yellow (03/16/24: AM) UA WBC [0-3] 0-3 (03/16/24 11:41 AM) Glucose Level [74-106 mg/dL] 137 mg/dL *HI* (03/16/24: AM) Potassium Level [3.5-5.1 mmol/L] 3.8 mmo l/L (03/16/24 11:41 AM) MCV [80.0-96.0 fL] 86.8 fL (03/16/24 11:41 AM) UA Urobilinogen Normal (03/16/24 11: AM) UA Bili [Negative] 1+ *ABN* (03/16/24 11:41 AM) UA Ketones Negative (03/16/24 11:41 AM) AST [15-37 unit/L] 32 unit/L (03/16/24 11:41 AM) ALT [16-63 unit/L] 39 unit/L (03/16/24 AM) MCHC [31.0-35.0 g/dL] 32.1 g/dL (03/16/24 AM) Sodium Level [136-145 mmol/L] 142 mmol/L (03/16/24 AM) UA RBC [0-2] 10-25 (03/16/24 AM) UA Leuk Est Negative (03/16/24) UA Nitrite Negative (03/16/24 AM) UA Glucose [Negative] Negative (03/16/24 AM) Hct [41.0-51.0 %] 45.2 % (03/16/24 AM) UA Bacteria Rare /HPF (03/16/24 AM) Calcium Level [8.5-10.1 mg/dL] 9.4 mg/dL (03/16/24 AM) Albumin Level [3.4-5.0 g/dL] 3.3 g/dL *LOW* (03/16/24) Protein Total [6.4-8.2 g/dL] 7.8 g/dL (03/16/24: AM) UA Protein 1+ *ABN* (03/16/24 AM) MCH [26.0-32.0 pg] 27.8 pg (03/16/24: AM) Neutro Absolute 5.5 x10^3/mcL *NA* (03/16/24 AM) Bilirubin Total [0.2-1.0 mg/dL] 0.4 mg/d L (03/16/24 AM) Hgb [14.0-18.0 g/dL] 14.5 g/dL (03/16/24: AM) Alk Phos [46-146 unit/L] 74 unit/L (03/16/24 AM) UA Blood 3+ *ABN* (03/16/24 AM) UA Mucous Moderate /HPF *ABN* (03/16/24 AM) UA Spec Grav >=1.030 *NA* (03/16/24 AM) Platelets [130-450 x10^3/mcL] 204 x10^3/ mcL (03/16/24 11:41 AM) CO2 [21-32 mmol/L] 28 mmol/L (03/16/24 11:41 AM) UA Squam Epithelial [None Seen] Few *ABN* (03/16/24 11:41 AM) UA pH 5.5 *NA* (03/16/24 11:41 AM) eGFR Non-AA [>=60] 71 (03/16/24 11:41 AM) eGFR AA [>=60] 71 (03/16/24 11:41 AM) UA Appear Hazy *ABN* (03/16/24 11:41 AM) Chloride Level [98-107 mmol/L] 103 mmol/ L (03/16/24 11:41 AM) RDW-CV [11.5-14.5 %] 14.9 % *HI* (03/16/24 11:41 AM) Imm Gran Auto [0.0-0.9 %] 0.5 % (03/16/24 11:41 AM) UA Culture Ind?. Not Indicated (03/16/24 11:41 AM) Creatinine Level [0.70-1.30 mg/dL] 1.21 mg/dL (03/16/24 11:41 AM) Eos, Auto [1.0-6.0 %] 2.0 % (03/16/24 11:41 AM) Vital Signs Most recent to oldest [Reference Range]: 1 2 Temperature Temporal Artery [36-38 Deg C ] 35.6 Deg C *LOW* (03/16/24 11:28 AM) Peripheral Pulse Rate [60-100 bpm] 57 bp m *LOW* (03/16/24 2:16 PM) 58 bpm *LOW* (03/16/24 11:28 AM) Respiratory Rate [12-24 br/min] 16 br/mi n (03/16/24 2:16 PM) 18 br/min (03/16/24 11:28 AM) Blood Pressure [90-140/60-90 mmHg] 148/9 1mmHg *HI* (03/16/24 11:28 AM) Mean Arterial Pressure, Cuff [65-140 mmH g] 110 mmHg (03/16/24 11:28 AM) Weight Estimated 210.92 kg (03/16/24 11:28 AM) Body Mass Index Estimated 75.63 kg/m2 (03/16/24 11:28 AM) Height/Length Estimated 167 cm (03/16/24 11:28 AM) Social History Social History Type Response Smoking Status Smoking tobacco use: Former tobacco user;Former smokeless tobacco user, quit more than 30 days ago; Number of years: 15; entered on: 10/06/23 Sex Male Hospital Discharge Instructions Patient Education 03/16/2024 15:19:41 Hematuria, Adult Hematuria, Adult Hematuria is blood [...] these instructions at home: Medicines ??? Take vjli-axt-xocwevo and prescription medicines only as told by [...] the blood stops without treatment. ??? Take qkit-lqb-zpyuaey and prescription medicines only as told by your health care provider. ??? Drink enough fluid to keep your urine pale yellow. This information is not intended to replace advice given to you by your health care provider. Make sure you discuss any questions you have with your health care provider. Document Revised: 06/27/2021 Document Reviewed: 06/27/2021 [employer] Patient Education ?? 2022 [employer]. 03/16/2024 15:19:39 Kidney Stones Kidney Stones Kidney stones are solid, rock-like deposits that form inside of the kidneys. The kidneys are a pairof organs that make urine. A kidney stone may form in a kidney and move into other parts of the urinary tract, including the tubes that connect the kidneys to the bladder (ureters), the bladder, and the tube that carries urine out of the body (urethra). As the stone moves through these areas, it can cause intense pain and block the flow of urine. Kidney stones are created when high levels of certain minerals are found in the urine. The stones are usually passed out of the body through urination, but in some cases, medical treatment may be needed to remove them. What are the causes? Kidney stones may be caused by: ??? A condition in which certain glands produce too much parathyroid hormone (primary hyperparathyroidism), which causes too much calcium buildup in the blood. ??? A buildup of uric acid crystals in the bladder (hyperuricosuria). Uric acid is a chemical that the body produces when you eat certain foods. It usually leaves the body in the urine. ??? Narrowing (stricture) of one or both of the ureters. ??? A kidney blockage that is present at (congenital obstruction). ??? Past surgery on the kidney or the ureters. What increases the risk? The following factors may make you more likely to develop this condition: ??? Having had a kidney stone in the past. ??? Having a family history of kidney stones. ??? Not drinking enough water. ??? Eating a diet that is high in protein, salt (sodium), or sugar. ??? Being overweight or obese. What are the signs or symptoms? Symptoms of a kidney stone may include: ??? Pain in the side of the abdomen, right below the ribs (flank pain). Pain usually spreads (radiates) to the groin. ??? Needing to urinate often or urgently. ??? Painful urination. ??? Blood in the urine (hematuria). ??? Nausea. ??? Vomiting. ??? Fever and chills. How is this diagnosed? This condition may be diagnosed based on: ??? Your symptoms and medical history. ??? A physical exam. ??? Blood tests. ??? Urine tests. These may be done before and after the stone passes out of your body through urination. ??? Imaging tests, such as a CT scan, abdominal X-ray, or ultrasound. ??? A procedure to examine the inside of the bladder (cystoscopy). How is this treated? Treatment for kidney stones depends on the size, location, and makeup of the stones. Kidney stones will often pass out of the body through urination. You may need to: ??? Increase your fluid intake to help pass the stone. In some cases, you may be given fluids through an IV and may need to be monitored in the hospital. ??? Take medicine for pain. ??? Make changes in your diet to help prevent kidney stones from coming back. Sometimes, procedures are needed to remove a kidney stone. This may involve: ??? A procedure to break up kidney stones using: ??? A focused beam of light (laser therapy). ??? Shock waves (extracorporeal shock wave lithotripsy). ??? Surgery to remove kidney stones. This may be needed if you have severe pain or have stones thatblock your urinary tract. Follow these instructions at home: Medicines ??? Take azlb-mqb-oioyamp and prescription medicines only as told by your health care provider. ??? Ask your health care provider if the medicine prescribed to you requires you to avoid driving or using heavy machinery. Eating and drinking ??? Drink enough fluid to keep your urine pale yellow. You may be instructed to drink at least 8???10 glasses of water each day. This will help you pass the kidney stone. ??? If directed, change your diet. This may include: ??? Limiting how much sodium you eat. ??? Eating more fruits and vegetables. ??? Limiting how much animal protein you eat. Animal proteins include red meat, poultry, fish, and eggs. ??? Eating a normal amount of calcium (1,000???1,300 mg per day). ??? Follow instructions from your health care provider about eating or drinking restrictions. General instructions ??? Collect urine samples as told by your health care provider. You may need to collect a urine sample: ??? 24 hours after you pass the stone. ??? 8???12 weeks after you pass the kidney stone, and every 6???12 months after that. ??? Strain your urine every time you urinate, for as long as directed. Use the strainer that your health care provider recommends. ??? Do not throw out the kidney stone after passing it. Keep the stone so it can be tested by your health care provider. Testing the makeup of your kidney stone may help prevent you from getting kidney stones in the future. ??? Keep all follow-up visits. You may need follow-up X-rays or ultrasounds to make sure that your stone has passed. How is this prevented? To prevent another kidney stone: ??? Drink enough fluid to keep your urine pale yellow. This is the best way to prevent kidney stones. ??? Eat a healthy diet. Follow recommendations from your health care provider about foods to avoid.Recommendations vary depending on the type of kidney stone that you have. You may be instructed to eat a low-protein diet. ??? Maintain a healthy weight. Where to find more information ??? National Kidney Foundation (NKF): www.kidney.org ??? U[employer] Foundation (UCF): www.urologyhealth.org Contact a health care provider if: ??? You have pain that gets worse or does not get better with medicine. Get help right away if: ??? You have a fever or chills. ??? You develop severe pain. ??? You develop new abdominal pain. ??? You faint. ??? You are unable to urinate. Summary ??? Kidney stones are solid, rock-like deposits that form inside of the kidneys. ??? Kidney stones can cause nausea, vomiting, blood in the urine, abdominal pain, and the urge to urinate often. ??? Treatment for kidney stones depends on the size, location, and makeup of the stones. Kidney stones will often pass out of the body through urination. ??? Kidney stones can be prevented by drinking enough fluids, eating a healthy diet, and maintaining a healthy weight. This information is not intended to replace advice given to you by your health care provider. Make sure you discuss any questions you have with your health care provider. Document Revised: 02/05/2023 Document Reviewed: 02/05/2023 [employer] Patient Education ?? 2022 [employer] Follow Up Care 03/16/2024 11:22:44 With:Follow up with specialist Address: When:1 to 2 weeks Comments:[facility] - follow-up??according to their??recommendations [facility] Address: [address] [phone] When:1 to 2 weeks Physician Emergency department Note * Carlos Elizabeth MD: PERFORM Event Display: ED Note Physician Authored Date: [id number] KAELA GRAY :1970 Age:53 years Sex:Male Visit Date:03/16/2024 Primary Care Physician: [facility], Bin Moe MD Basic Information Time Seen: Carlos Elizabeth MD / 03/16/2024 11:37 Chief Complaint Pt reports wicked kidney pain on the right, known stone on the left w/ plan for surgery 04/09 w/ [facility] [place]. Carrasco urologist. Tylenol w/ no relief. History Of Present Illness: 53-year-old male??past medical history atrial fibrillation??on Eliquis, CAD/VT, hypertension, obesity, SVT, PILAR, kidney stones presents with right flank pain. ??This has been??going on intermittentlyfor??a couple of weeks and he is follow- up with urology for stent placement if the symptoms are persistent.?? He developed sudden onset right-sided 10 out of 10 flank pain with nausea radiating towards the right??side of his abdomen??and has been present for a couple of hours prior to arrival to the ER. ??He had some hematuria with this as well. ??Otherwise no fevers or any other symptoms. Review of Systems: Flank pain, nausea Physical Exam Vitals & Measurements T:??35.6?C ??(Temporal Artery)?? HR:??57??(Peripheral)?? RR:??16?? BP:??148/91?? SpO2:??97%?? HT:??167??cm?? WT:??210.92??kg??(Estimated)?? BMI:??75.63?? Pain Score:??10?? General: Alert and oriented, well nourished Eye: PERRL, EOMI,?Normal?conjunctiva HENT: Normocephalic Lungs: Clear to auscultation and percussion,?Non-labored?? respiration Heart:?Normal? rate,?Regular??rhythm Abdomen: Soft, non-tender, non-distended Psychiatric: Cooperative, appropriate mood and affect Medical Decision Makin-year-old male extensive medical history as above??presents with??right-sided flank pain. ??He has a history of kidney stones and??has been dealing with some right-sided pain??for the past couple of weeks intermittently, saw Dr. Carrasco in urology??at [facility], it seems on chart review as if they are planning for??surgical removal/procedure/stent placement for this??kidney stone. ??He does have CT imaging recently showing a 2 mm right mid ureter stone.?? He developed sudden onset worsening pain today in the right side of his flank which is why he came back to the ER.?? He is having 10 out of??10 right-sided flank pain on arrival, was given IV fluids Zofran Toradol and??morphine.?? This was? ?very successful in reducing his pain.?? I did??acknowledges giving Toradol in the setting of??anticoagulation use but his pain was so significant??on arrival I felt that a one-time dose would be??beneficial for his pain.?? No leukocytosis. ??Hemoglobin normal. ??Other labs are normal including crea tinine.?? His UA does not show evidence of infection.?? UA does show evidence of blood.?? Patient??has a BMI that is too big to fit into our CT scanner here in the ER,??however given his clinical presentation and recent CT scan at [facility] showing a renal stone in the right mid ureter,??patient??is??almost most definitely presenting with??worsening pain from a right-sided kidney stone.?? I cannot obtain imaging here at this time to confirm the location of the stone or any development of a new kidney stone, however given that he??had significant pain improvement with the regimen here in the ER. ??He can follow-up with his??urologist as scheduled as an outpatient. ??I confirmed this with??speaking with urology at [facility], they are in agreement with plan with pain regimen and control and??follow-up as an outpatient.?? Given return precautions the ED, given oxycodone prescription??for breakthrough pain, recommended Tylenol??in addition to this for pain control.?? From a prescription monitoring system was reviewed,??oxycodone can be prescribed at this time.?? Discharged in stable condition return precautions ED and??close follow-up with urology. Procedure No Qualifying Data Assessment/Plan 1.??Kidney stone??N20.0 Ordered: oxyCODONE 10 mg oral tablet, 10 mg = 1 tab, Oral, every 6 hr, PRN as needed for pain, # 15 tab, 0 Refill(s), 04/06/24 16:18:00 EDT Discharge Patient, 03/16/24 15:59:00 EDT, Home Independently, Constant Indicator ?? 2.??Hematuria??R31.9 Ordered: oxyCODONE 10 mg oral tablet, 10 mg = 1 tab, Oral, every 6 hr, PRN as needed for pain, # 15 tab, 0 Refill(s), 04/06/24 16:18:00 EDT Discharge Patient, 03/16/24 15:59:00 EDT, Home Independently, Constant Indicator ?? Patient Education Hematuria, Adult Kidney Stones Follow Up With When Contact Information Follow up with specialist Within 1 to 2 weeks Additional Instructions: [facility] Urology - follow-up??according to their??recommendations [facility], Bin Moe MD Within 1 to [address] [address] [phone] Additional Instructions: Medication Reconciliation New Prescription oxyCODONE (oxyCODONE 10 mg oral tablet)1 tab [...] Refills: 0. ?? potassium chloride (Potassium Chloride (Gbd-Xztf-Abf 10) 10 mEq oral tablet, extended release)4 [...] guidance (01/11/2021)???Cardiac catheterization (01/11/2021)???Tonsillectomy Medication Administration Given morphine 4 mg/mL preservative-free injectable solution, 4 mg, IV Push NS bolus, 1000 mL, Hydration Bolus Toradol, 15 mg, IV Push Zofran, 4 mg, IV Push Allergies Zoloft??(Chest pain) adenosine??(Rapid heart beat) buPROPion [...] and Differential?? LATEST RESULTS?? HISTORICAL RESULTS?? WBC?? 03/16/24 11:41?? 8.5?? 12/24/23?? 8.9?? RBC?? 03/16/24 11:41?? 5.2?? 12/24/23?? 4.6?? Hgb?? 03/16/24 11:41?? 14.5?? 12/24/23?? 12.9 ??Low?? Hct?? 03/16/24 11:41?? 45.2?? 12/24/23?? 39.6 ??Low?? MCV?? 03/16/24 11:41?? 86.8?? 12/24/23?? 86.7?? MCH?? 03/16/24 11:41?? 27.8?? 12/24/23?? 28.2?? MCHC?? 03/16/24 11:41?? 32.1?? 12/24/23?? 32.6?? RDW-CV?? 03/16/24 11:41?? 14.9 ??High?? 12/24/23?? 14.4?? Platelets?? 03/16/24 11:41?? 204?? 12/24/23?? 176?? Neutro Auto?? 03/16/24 11:41?? 64.5?? 12/24/23?? 59.3?? Lymph Auto?? 03/16/24 11:41?? 24.9?? 12/24/23?? 30.0?? Green Auto?? 03/16/24 11:41?? 7.5?? 12/24/23?? 7.0?? Eos, Auto?? 03/16/24 11:41?? 2.0?? 12/24/23?? 2.4?? Basophil Auto?? 03/16/24 11:41?? 0.6?? 12/24/23?? 0.6?? Imm Gran Auto?? 03/16/24 11:41?? 0.5?? 12/24/23?? 0.7?? Neutro Absolute?? 03/16/24 11:41?? 5.5?? 12/24/23?? 5.3? Routine Chemistry?? LATEST RESULTS?? HISTORICAL RESULTS?? Sodium Level?? 03/16/24 11:41?? 142?? 12/24/23?? 140?? Potassium Level?? 03/16/24 11:41?? 3.8?? 12/24/23?? 3.7?? Chloride Level?? 03/16/24 11:41?? 103?? 12/24/23?? 104?? CO2?? 03/16/24 11:41?? 28?? 12/24/23?? 28?? Alk Phos?? 03/16/24 11:41?? 74?? 12/24/23?? 69?? AST?? 03/16/24 11:41?? 32?? 12/24/23?? 26?? ALT?? 03/16/24 11:41?? 39?? 12/24/23?? 34?? BUN?? 03/16/24 11:41?? 9?? 12/24/23?? 8?? Glucose Level?? 03/16/24 11:41?? 137 ??High?? 12/24/23?? 114 ??High?? Creatinine Level?? 03/16/24 11:41?? 1.21?? 02/23/24?? 1.14?? eGFR AA?? 03/16/24 11:41?? 71?? 02/23/24?? 76?? eGFR Non-AA?? 03/16/24 11:41?? 71?? 02/23/24?? 76?? Calcium Level?? 03/16/24 11:41?? 9.4?? 12/24/23?? 9.2?? Protein Total?? 03/16/24 11:41?? 7.8?? 12/24/23?? 7.2?? Albumin Level?? 03/16/24 11:41?? 3.3 ??Low?? 12/24/23?? 3.1 ??Low?? Bilirubin Total?? 03/16/24 11:41?? 0.4?? 12/24/23?? 0.5? UA Macroscopic?? LATEST RESULTS?? HISTORICAL RESULTS?? UA Color?? 03/16/24 11:41?? Yellow?? 01/17/24?? Yellow?? UA Appear?? 03/16/24 11:41?? Hazy Abnormal?? 01/17/24?? Clear?? UA Glucose?? 03/16/24 11:41?? Negative?? 01/17/24?? Negative?? UA Bili?? 03/16/24 11:41?? 1+ Abnormal?? 01/17/24?? Negative?? UA Ketones?? 03/16/24 11:41?? Negative?? 01/17/24?? Negative?? UA Spec Grav?? 03/16/24 11:41?? >=1.030?? 01/17/24?? <=1.005?? UA Blood?? 03/16/24 11:41?? 3+ Abnormal?? 01/17/24?? 2+ Abnormal?? UA pH?? 03/16/24 11:41?? 5.5?? 01/17/24?? 6.0?? UA Protein?? 03/16/24 11:41?? 1+ Abnormal?? 01/17/24?? Negative?? UA Urobilinogen?? 03/16/24 11:41?? Normal?? 01/17/24?? Normal?? UA Nitrite?? 03/16/24 11:41?? Negative?? 01/17/24?? Negative?? UA Leuk Est?? 03/16/24 11:41?? Negative?? 01/17/24?? Negative?? UA Culture Ind?.?? 03/16/24 11:41?? Not Indicated?? 01/17/24?? Not Indicated? UA Microscopic?? LATEST RESULTS?? HISTORICAL RESULTS?? UA WBC?? 03/16/24 11:41?? 0-3?? 01/17/24?? 0-3?? UA RBC?? 03/16/24 11:41?? 10-25?? 01/17/24?? 5-10?? UA Squam Epithelial?? 03/16/24 11:41?? Few Abnormal?? 01/17/24?? Few Abnormal?? UA Mucous?? 03/16/24 11:41?? Moderate Abnormal?? 01/17/24?? None Seen?? UA Bacteria?? 03/16/24 11:41?? Rare?? 01/17/24?? None Seen? Electronically Signed on 03/16/24 04:29 PM Carlos Elizabeth MD Emergency department Discharge instructions * Carlos Elizabeth MD: PERFORM Event Display: ED Discharge Information Authored Date: [id number] KAELA GRAY :1970 Age:53 years Sex:Male Visit Date:03/16/2024 Primary Care Physician: Bin Boyce MD Discharge Instructions We would like to thank you for allowing us to assist you with your healthcare needs. The following includes patient education materials and information regarding your injury/illness. Diagnosis from Today's Visit Kidney stone Hematuria Discharge Vitals Temperature??(Temporal Artery) 96.1 ??F (35.6 ??C) Heart Rate??(Peripheral) 57 Respiratory Rate?? 16 Blood Pressure?? 148/91?? SpO2?? 97% Height?? 65.75 in (167 cm) Weight??(Estimated) 465.08 lb (210.92 kg) BMI?? 75.63 Allergies Zoloft??(Chest pain) adenosine??(Rapid heart beat) buPROPion gabapentin What to Do Next Instructions from Your Care Team You were seen in the emergency department today for a kidney stone.?? Your??pain seems well-controlled here in the emergency department.?? I spoke with??the urologist at [facility], they are in agreement with??the plan for pain control??with oxycodone as needed for breakthrough pain, and Tylenol 500mg 6-7 times a day??as needed for pain. ??Come back to the ER with any significantly worsening symptoms or pain. ??Otherwise follow-up with your urologist according to their??recommendations. You Need to Schedule the Following Appointments Follow Up with??Follow up with specialist When:??Within 1 to 2 weeks Why: [facility] Urology - follow-up??according to their??recommendations Follow Up with??[facility], Bin Moe MD When:??Within 1 to 2 weeks Where: [facility] [address] [place] [address] [phone] Upcoming Scheduled Appointments Friday 12:40 PM EDT ?? With: Suzy Hall TRAVEL PTA Where: [facility] Cardiology [address] [place] [address] Status: Confirmed Friday 10:15 AM EST ?? With: Bernarda Aguilar NP Where: [facility] [address] [place] [address] Status: Confirmed You were treated [...] Much When Why Instructions Next Dose New oxyCODONE (oxyCODONE 10 mg oral tablet) 1 tab Oral (given by mouth) Every 6 hours as needed for as needed for pain Kidney stone Hematuria Printed Prescription Unchanged apixaban (Eliquis 5 [...] 3 Days Unchanged potassium chloride (Potassium Chloride (Hcd-Svpl-Lxg 10) 10 mEq oral tablet, extended release) [...] these instructions at home: Medicines ? Take [id number]-[id number] and prescription medicines only as told by [...] the blood stops without treatment. ? Take wtnl-qvu-ziyhoih and prescription medicines only as told by your health care provider. ? Drink enough fluid to keep your urine pale yellow. This information is not intended to replace advice given to you by your health care provider. Make sure you discuss any questions you have with your health care provider. Document Revised: 06/27/2021 Document Reviewed: 06/27/2021 [employer] Patient Education ?? 2022 [employer] Kidney Stones Kidney stones are solid, rock-like deposits that form inside of the kidneys. The kidneys are a pairof organs that make urine. A kidney stone may form in a kidney and move into other parts of the urinary tract, including the tubes that connect the kidneys to the bladder (ureters), the bladder, and the tube that carries urine out of the body (urethra). As the stone moves through these areas, it can cause intense pain and block the flow of urine. Kidney stones are created when high levels of certain minerals are found in the urine. The stones are usually passed out of the body through urination, but in some cases, medical treatment may be needed to remove them. What are the causes? Kidney stones may be caused by: ? A condition in which certain glands produce too much parathyroid hormone (primary hyperparathyroidism), which causes too much calcium buildup in the blood. ? A buildup of uric acid crystals in the bladder (hyperuricosuria). Uric acid is a chemical that the body produces when you eat certain foods. It usually leaves the body in the urine. ? Narrowing (stricture) of one or both of the ureters. ? A kidney blockage that is present at (congenital obstruction). ? Past surgery on the kidney or the ureters. What increases the risk? The following factors may make you more likely to develop this condition: ? Having had a kidney stone in the past. ? Having a family history of kidney stones. ? Not drinking enough water. ? Eating a diet that is high in protein, salt (sodium), or sugar. ? Being overweight or obese. What are the signs or symptoms? Symptoms of a kidney stone may include: ? Pain in the side of the abdomen, right below the ribs (flank pain). Pain usually spreads (radiates)to the groin. ? Needing to urinate often or urgently. ? Painful urination. ? Blood in the urine (hematuria). ? Nausea. ? Vomiting. ? Fever and chills. How is this diagnosed? This condition may be diagnosed based on: ? Your symptoms and medical history. ? A physical exam. ? Blood tests. ? Urine tests. These may be done before and after the stone passes out of your body through urination. ? Imaging tests, such as a CT scan, abdominal X-ray, or ultrasound. ? A procedure to examine the inside of the bladder (cystoscopy). How is this treated? Treatment for kidney stones depends on the size, location, and makeup of the stones. Kidney stones will often pass out of the body through urination. You may need to: ? Increase your fluid intake to help pass the stone. In some cases, you may be given fluids through an IV and may need to be monitored in the hospital. ? Take medicine for pain. ? Make changes in your diet to help prevent kidney stones from coming back. Sometimes, procedures are needed to remove a kidney stone. This may involve: ? A procedure to break up kidney stones using: ? A focused beam of light (laser therapy). ? Shock waves (extracorporeal shock wave lithotripsy). ? Surgery to remove kidney stones. This may be needed if you have severe pain or have stones that block your urinary tract. Follow these instructions at home: Medicines ? Take gxvo-dzb-tbqhvgz and prescription medicines only as told by your health care provider. ? Ask your health care provider if the medicine prescribed to you requires you to avoid driving or using heavy machinery. Eating and drinking ? Drink enough fluid to keep your urine pale yellow. You may be instructed to drink at least 8???10 glasses of water each day. This will help you pass the kidney stone. ? If directed, change your diet. This may include: ? Limiting how much sodium you eat. ? Eating more fruits and vegetables. ? Limiting how much animal protein you eat. Animal proteins include red meat, poultry, fish, and eggs. ? Eating a normal amount of calcium (1,000???1,300 mg per day). ? Follow instructions from your health care provider about eating or drinking restrictions. General instructions ? Collect urine samples as told by your health care provider. You may need to collect a urine sample: ? 24 hours after you pass the stone. ? 8???12 weeks after you pass the kidney stone, and every 6???12 months after that. ? Strain your urine every time you urinate, for as long as directed. Use the strainer that your health care provider recommends. ? Do not throw out the kidney stone after passing it. Keep the stone so it can be tested by your health care provider. Testing the makeup of your kidney stone may help prevent you from getting kidney stones in the future. ? Keep all follow-up visits. You may need follow-up X-rays or ultrasounds to make sure that your stone has passed. How is this prevented? To prevent another kidney stone: ? Drink enough fluid to keep your urine pale yellow. This is the best way to prevent kidney stones. ? Eat a healthy diet. Follow recommendations from your health care provider about foods to avoid. Recommendations vary depending on the type of kidney stone that you have. You may be instructed to eat a low-protein diet. ? Maintain a healthy weight. Where to find more information ? National Kidney Foundation (NKF): www.kidney.org ? [employer] (UCF): www.urologyhealth.org Contact a health care provider if: ? You have pain that gets worse or does not get better with medicine. Get help right away if: ? You have a fever or chills. ? You develop severe pain. ? You develop new abdominal pain. ? You faint. ? You are unable to urinate. Summary ? Kidney stones are solid, rock-like deposits that form inside of the kidneys. ? Kidney stones can cause nausea, vomiting, blood in the urine, abdominal pain, and the urge to urinate often. ? Treatment for kidney stones depends on the size, location, and makeup of the stones. Kidney stones will often pass out of the body through urination. ? Kidney stones can be prevented by drinking enough fluids, eating a healthy diet, and maintaining a healthy weight. This information is not intended to replace advice given to you by your health care provider. Make sure you discuss any questions you have with your health care provider. Document Revised: 02/05/2023 Document Reviewed: 02/05/2023 [employer] Patient Education ?? 2022 [employer] Tests Performed Medications and Immunizations Administered Given morphine 4 mg/mL preservative-free injectable solution, 4 mg, IV Push NS bolus, 1000 mL, Hydration Bolus Toradol, 15 mg, IV Push Zofran, 4 mg, IV Push Lab Test Name Test Result Date/Time WBC 8.5 x10^3/mcL 03/16/2024 11:41 EDT RBC 5.2 x10^6/mcL 03/16/2024 11:41 EDT Hgb 14.5 g/dL 03/16/2024 11:41 EDT Hct 45.2 % 03/16/2024 11:41 EDT MCV 86.8 fL 03/16/2024 11:41 EDT MCH 27.8 pg 03/16/2024 11:41 EDT MCHC 32.1 g/dL 03/16/2024 11:41 EDT RDW-CV 14.9 % 03/16/2024 11:41 EDT Platelets 204 x10^3/mcL 03/16/2024 11:41 EDT Neutro Auto 64.5 % 03/16/2024 11:41 EDT Lymph Auto 24.9 % 03/16/2024 11:41 EDT Green Auto 7.5 % 03/16/2024 11:41 EDT Eos, Auto 2.0 % 03/16/2024 11:41 EDT Basophil Auto 0.6 % 03/16/2024 11:41 EDT Imm Gran Auto 0.5 % 03/16/2024 11:41 EDT Neutro Absolute 5.5 x10^3/mcL 03/16/2024 11:41 EDT Sodium Level 142 mmol/L 03/16/2024 11:41 EDT Potassium Level 3.8 mmol/L 03/16/2024 11:41 EDT Chloride Level 103 mmol/L 03/16/2024 11:41 EDT CO2 28 mmol/L 03/16/2024 11:41 EDT Alk Phos 74 unit/L 03/16/2024 11:41 EDT AST 32 unit/L 03/16/2024 11:41 EDT ALT 39 unit/L 03/16/2024 11:41 EDT BUN 9 mg/dL 03/16/2024 11:41 EDT Glucose Level 137 mg/dL 03/16/2024 11:41 EDT Creatinine Level 1.21 mg/dL 03/16/2024 11:41 EDT eGFR AA 71 03/16/2024 11:41 EDT eGFR Non-AA 71 03/16/2024 11:41 EDT Calcium Level 9.4 mg/dL 03/16/2024 11:41 EDT Protein Total 7.8 g/dL 03/16/2024 11:41 EDT Albumin Level 3.3 g/dL 03/16/2024 11:41 EDT Bilirubin Total 0.4 mg/dL 03/16/2024 11:41 EDT UA Color YELLOW. 03/16/2024 11:41 EDT UA Appear Hazy- Cl[place]k 03/16/2024 11:41 EDT UA Glucose NEGATIVE 03/16/2024 11:41 EDT UA Bili 1+ 03/16/2024 11:41 EDT UA Ketones NEGATIVE 03/16/2024 11:41 EDT UA Spec Grav >=1.030 03/16/2024 11:41 EDT UA Blood 3+ 03/16/2024 11:41 EDT UA pH 5.5 03/16/2024 11:41 EDT UA Protein 1+ 03/16/2024 11:41 EDT UA Urobilinogen 0.2 Uro 03/16/2024 11:41 EDT UA Nitrite NEGATIVE 03/16/2024 11:41 EDT UA Leuk Est NEGATIVE 03/16/2024 11:41 EDT UA Culture Ind?. Not Indicated 03/16/2024 11:41 EDT UA WBC 0-3 03/16/2024 11:41 EDT UA RBC 10-25 03/16/2024 11:41 EDT UA Squam Epithelial Few 03/16/2024 11:41 EDT UA Mucous Moderate 03/16/2024 11:41 EDT UA Bacteria Rare 03/16/2024 11:41 EDT Patient/Squadron Worker Signature Patient Name:KAELA GRAY I have received this information and my questions have been answered. Patient/Squadron Worker Name: Patient/Squadron Worker Signature: Relationship to Patient: Witness Name/Signature: Date: Electronically Signed on: 03/16/2024 16:21 EDTSigned by:TRM Patient Care team information Care Team Personnel Name: Suresh Roth MD Position: Physician Member Role: Informed Provider Address: Address: [address] [place] [id number]- Name: Bin Boyce MD Position: No Access Member Role: Primary Care Physician Address: Address: [facility] [address], [place] [address] Care Team Related Persons Name: MASON GRAY Address: Home [address] [facility], [id number]
--- OUTSIDE RECORDS SUMMARY | 2024-05-17 14:29 | XMS_ITS | Continuity of Care Document ---
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 Role Phone [facility] Date[facility]s): 01/17/24 - 01/17/[address] [address] Encounter Diagnosis Rt flank pain(Discharge Diagnosis) - 01/17/24 Discharge Disposition: Home or Self Care Attending Physician: Colt Arzola MD Admitting Physician: Colt Arzola MD Allergies, Adverse Reactions, Alerts Substance Reaction Severity Status adenosine 1 Rapid heart beat Severe Active gabapentin Unknown Active buPROPion Unknown Active Zoloft Chest pain Severe Active 1PT had an adverse reaction HR went up to 250%27s Assessment and Plan Extracted from: Title:ED Provider Note Author:Nadir Hodgson MD Date:01/17/24 Assessment/Plan 1.??Rt flank pain??R10.9 Think this is renal colic for patient??as he underwent a bowel prep and has??a??2 mm stone on previous CT scan??from December 24, 2023 from [facility].?? Patient does not fit on our CT scan.?? Patient is already been prescribed tamsulosin by his primary care provider he will??continue with this. ??Patient had 5 mg of oxycodone??orally here in the emergency department. ??Patient did not want IV??started as he is a difficult IV stick.?? Urinalysis does not show infection.?? Patient is??sent home with a bottle of??Percocet??5/325 #5??and a??oxycodone prescription??for 5 mg 1- 2 tabs every 6 hours as sent to the pharmacy.?? Patient is aware if he worsens or does not improve to return to the emergency department??or see primary??care provider or urologist sooner. Ordered: oxyCODONE 5 mg oral tablet, 5 mg = 1 tab, Oral, every 4 hr, PRN as needed for pain, X 5 days, # 15 tab, 0 Refill(s), 01/22/24 19:41:00 EDT, Pharmacy: [id number], 167.64, cm, 12/31/23 12:16:00 EST, Height, 210.9, kg, 12/31/23 12:23:00 EST, Weight Dosing Discharge Patient, 01/17/24 19:40:00 EST, Home Independently, Constant Indicator ?? Orders: THP oxyCODONE-acetaminophen 5-325mg Tab, 5 tab, Oral, Misc, Once, First Dose: 01/17/24 19:40:00 EST, Stop Date: 01/17/24 19:40:00 EST, Physician Stop, STAT Patient Education Renal Colic Follow Up With When Contact Information Follow up with primary care provider Within 1 to 2 weeks Additional Instructions: Future Appointments Future Scheduled Tests [...] BID, # 180 tab, 4 Refill(s), Pharmacy: [id number], 168, cm, 11/17/22 13:46:00 EST, Height/Length Dosing, 210, kg, 11/17/22 13:46:00 EST, Weight Dosing Start Date: 06/24/23 Stop Date: 09/16/24 Status: Ordered oxyCODONE 5 mg oral tablet 5 mg = 1 tab, Oral, every 4 hr, PRN as needed for pain, X 5 days, # 15 tab, 0 Refill(s), 01/22/24 6:41:00 PM CDT, Pharmacy: [facility] [id number], 167.64, cm, 12/31/23 12:16:00 EST, Height, 210.9, kg,12/31/23 12:23:00 EST, Weight Dosing Start Date: 01/17/24 Stop Date: 01/22/24 Status: Ordered Potassium Chloride (Dzj-Euni-Rhs 10) 10 mEq oral tablet, extended release 4 tabs, Oral, Daily, # 360 tab, 3 Refill(s), Pharmacy: [facility] [id number], 167.64, cm, 10/06/23 12:44:00 EST, Height, 204.12, kg, 10/06/23 12:54:00 EST, Weight Dosing Start Date: 10/31/23 Status: Ordered Pyridium 200 mg oral tablet 200 mg = 1 tab, Oral, TID(PC), # 9 tab, 0 Refill(s), Pharmacy: [facility] [id number], 168, cm, 11/17/22 13:46:00 EST, Height/Length Dosing, 210, kg, 11/17/22 13:46:00 EST, Weight Dosing Start Date: 11/17/22 Stop Date: 11/20/22 Status: Ordered torsemide 40 mg oral tablet 40 mg = 1 tab, Oral, Daily, # 90 tab, 4 Refill(s), Pharmacy: [facility] [id number], 167.64, cm, 09/30/23 13:19:00 EST, Height, 206.6, [...] tachycardia Confirmed 11/28/20 Active 1CPAP 7-3 cm Saxton/Adapt Procedures Procedure Date Related Diagnosis Body Site Status Cardiac ablation using fluor oscopy guidance 1 01/10/21 Completed Cardiac catheterization 2 01/10/21 Completed Tonsillectomy Completed Results Laboratory List Name Date Urinalysis with Micro if Indicated and C ulture if Indicated 01/17/24 Urinalysis Microscopic 01/17/24 Most recent to oldest [Reference Range]: 1 UA Color Yellow (01/17/24 5:50 PM) UA WBC [0-3] 0-3 (01/17/24 5:50 PM) UA Urobilinogen Normal (01/17/24 5:50 PM) UA Bili [Negative] Negative (01/17/24 5:50 PM) UA Ketones Negative (01/17/24 5:50 PM) UA RBC [0-2] 5-10 (01/17/24 5:50 PM) UA Leuk Est Negative (01/17/24 5:50 PM) UA Nitrite Negative (01/17/24 5:50 PM) UA Glucose [Negative] Negative (01/17/24 5:50 PM) UA Bacteria None Seen /HPF (01/17/24 5:50 PM) UA Protein Negative (01/17/24 5:50 PM) UA Blood 2+ *ABN* (01/17/24 5:50 PM) UA Mucous None Seen /HPF (01/17/24 5:50 PM) UA Spec Grav <=1.005 *NA* (01/17/24 5:50 PM) UA Squam Epithelial [None Seen] Few *ABN* (01/17/24 5:50 PM) UA pH 6.0 *NA* (01/17/24 5:50 PM) UA Appear Clear (01/17/24 5:50 PM) UA Culture Ind?. Not Indicated (01/17/24 5:50 PM) Vital Signs Most recent to oldest [Reference Range]: 1 Peripheral Pulse Rate [60-100 bpm] 81 bp m (01/17/24 4:42 PM) Respiratory Rate [12-24 br/min] 18 br/mi n (01/17/24 4:42 PM) Blood Pressure [90-140/60-90 mmHg] 152/7 7mmHg *HI* (01/17/24 4:42 PM) Mean Arterial Pressure, Cuff [65-140 mmH g] 102 mmHg (01/17/24 4:42 PM) Weight Estimated 208.65 kg (01/17/24 4:42 PM) Body Mass Index Estimated 74.24 kg/m2 (01/17/24 4:42 PM) Height/Length Estimated 167.64 cm (01/17/24 4:42 PM) Social History Social History Type Response Smoking Status Smoking tobacco use: Former tobacco user;Former smokeless tobacco user, quit more than 30 days ago; Number of years: 15; entered on: 10/06/23 Sex Male Hospital Discharge Instructions Patient Education 01/17/2024 18:42:37 Renal Colic Renal Colic Renal colic is pain that is caused by passing a kidney stone. The pain can be sharp and severe. It may be felt in the back, abdomen, side (flank), or groin. It can cause nausea. Renal colic can come and go. Follow these instructions at home: Watch your condition for any changes. The following actions may help to lessen any discomfort that you are feeling: Medicines ??? Take slum-dkq-kfxykqv and prescription medicines only as told by your health care provider. ??? Do not drive or use heavy machinery while taking prescription pain medicine. Eating and drinking ??? Drink enough fluid to keep your urine pale yellow. You may be instructed to drink at least 8???10 glasses of water each day. Follow instructions from your health care provider. ??? If directed, change your diet. This may include: ??? Limiting how much sodium you eat. You may need to eat less than 2 grams (2,000 mg) per day. ??? Eating more fruits and vegetables. ??? Limiting how much animal protein, such as red meat, poultry, fish, and eggs, you eat. ??? Avoiding foods such as spinach, rhubarb, sweet potatoes, and nuts. These make kidney stones more likely to form. ??? Follow instructions from your health care provider about eating or drinking restrictions. General instructions ??? Keep all follow-up visits as told by your health care provider. This is important. ??? Collect urine samples as told by your health care provider. You may need to collect a urine sample: ??? 24 hours after you pass the stone. ??? 8???12 weeks after passing the kidney stone, and every 6???12 months [...] makeup of your kidney stone may help understand how to prevent youfrom getting kidney stones in the future. Contact a health care provider if: ??? You have a fever or chills. ??? Your urine smells bad or looks cloudy. ??? You have pain or burning when you pass urine. Get help right away if: ??? Your flank pain or groin pain suddenly worsens. ??? You become confused or disoriented or you lose consciousness. Summary ??? Renal colic is pain that is caused by passing a kidney stone. ??? Take vkib-jqi-ctbqmjv and prescription medicines only as told by your health care provider. ??? Drink enough fluid to keep your urine pale yellow. You may be instructed to drink at least 8???10 glasses of water each day. Follow instructions from your health care provider. ??? Strain your urine every time you urinate, for as long as directed. Use the strainer that your health care provider recommends. ??? Do not throw out the kidney stone after passing it. Keep the stone so it can be tested by your health care provider. This information is not intended to replace advice given to you by your health care provider. Make sure you discuss any questions you have with your health care provider. Document Revised: 06/30/2022 Document Reviewed: 07/01/2022 Elsevier Patient Education ?? 2022 [employer] Follow Up Care 01/17/2024 16:41:54 With:Follow up with primary care provider Address: When:1 to 2 weeks Physician Emergency department Note * Esther Hodgson MD: PERFORM Event Display: ED Note Physician Authored Date: [id number] KAELA GRAY :1970 Age:53 years Sex:Male Visit Date:01/17/2024 Primary Care Physician: Gracie [facility], Bin Moe MD Basic Information Time Seen: Esther Hodgson MD / 01/17/2024 18:17 Chief Complaint Pt states he has had pain to his right flank area today. ??Concerned he may have a kidney stone History Of Present Illness: Review of [facility] CT scan from December 24, 2023 shows possible??2 mm??nonobstructing right mid ureteral calculus. ??Patient had done a bowel prep and was supposed to have a colonoscopy done yesterday at [facility]??however they were 3 hours behind so they??were unable to do his colonoscopy yesterday.?? Patient's pain??became over a 10 out of 10 prior to arrival.?? Patient reports is a 7 out of 10??here. ??Patient does not fit in our CT scanner here thus he had his CT as above at [facility].?? Patient already has an appointment??with urology at [facility] coming up.?? Patient had called his primary care provider??prior to coming to the emergency department and was??prescribed??Flomax.?? Patient is on blood thinners.?? Tylenol has not??helped sufficiently with his pain. ??Patient is here with his who is driving him home. Review of Systems: see hpi for ros Physical Exam Vitals & Measurements HR:??81??(Peripheral)?? RR:??18?? BP:??152/77?? SpO2:??98%?? HT:??167.64??cm?? WT:??208.65??kg??(Estimated)?? BMI:??74.24?? O2 Therapy:??Room air?? General: Alert and oriented, well nourished,?No??acute distress Eye: PER,?Normal??conjunctiva, No scleral icterus HENT: Normocephalic?Normal?? hearing?? Respiratory:??Respiration??no distress??no increased work of breathing Chest: wall excursion wnl no abnormal movements no obvious deformities Back: Positive right flank area pain Abdomen no significant right??lateral??thigh pain Musculoskeletal:?Normal?? range of motion and strength,?No??tenderness,?No??swelling Skin: Skin is warm, dry and pink,?No??rashes,?No??lesions Neurologic: Awake, alert and oriented X4 Psychiatric: Cooperative, appropriate mood and affect Medical Decision Making: For MDM please see under assessment and plan Procedure No Qualifying Data Assessment/Plan 1.??Rt flank pain??R10.9 Think this is renal colic for patient??as he underwent a bowel prep and has??a??2 mm stone on previous CT scan??from December 24, 2023 from [facility].?? Patient does not fit on our CT scan.?? Patientis already been prescribed tamsulosin by his primary care provider he will??continue with this. ??Patient had 5 mg of oxycodone??orally here in the emergency department. ??Patient did not want IV??started as he is a difficult IV stick.?? Urinalysis does not show infection.?? Patient is??sent home with a bottle of??Percocet??5/325 #5??and a??oxycodone prescription??for 5 mg 1-2 tabs every 6 hours as sent to the pharmacy.?? Patient is aware if he worsens or does not improve to return to the emergency department??or see primary??care provider or urologist sooner. Ordered: oxyCODONE 5 mg oral tablet, 5 mg = 1 tab, Oral, every 4 hr, PRN as needed for pain, X 5 days, # 15 tab, 0 Refill(s), 01/22/24 19:41:00 EDT, Pharmacy: [id number], 167.64, cm, 12/31/23 12:16:00 EST, Height, 210.9, kg, 12/31/23 12:23:00 EST, Weight Dosing Discharge Patient, 01/17/24 19:40:00 EST, Home Independently, Constant Indicator ?? Orders: THP oxyCODONE-acetaminophen 5-325mg Tab, 5 tab, Oral, Misc, Once, First Dose: 01/17/24 19:40:00 EST, Stop Date: 01/17/24 19:40:00 EST, Physician Stop, STAT Patient Education Renal Colic Follow Up With When Contact Information Follow up with primary care provider Within 1 to 2 weeks Additional Instructions: Medication Reconciliation New Prescription oxyCODONE (oxyCODONE 5 mg oral tablet)1 tab Oral (given by mouth) every 4 hours as needed as neededfor pain for 5 Days. Refills: 0. ?? Unchanged apixaban (Eliquis [...] Refills: 0. ?? potassium chloride (Potassium Chloride (Dsd-Mahm-Ktj 10) 10 mEq oral tablet, extended release)4 tabs Oral (given by mouth) every day. Refills: 3. ?? sulfamethoxazole-trimethoprim (Bactrim)600 Milligrams 2 times a [...] Administration Given oxyCODONE 5 mg oral tablet, 5 mg, Oral THP oxyCODONE-acetaminophen 5-325mg Tab, 5 tab, Oral Allergies Zoloft??(Chest pain) adenosine??(Rapid heart beat) [...] Macroscopic?? LATEST RESULTS?? HISTORICAL RESULTS?? UA Color?? 01/17/24 17:50?? Yellow?? 12/10/23?? Pale Yellow?? UA Appear?? 01/17/24 17:50?? Clear?? 12/10/23?? Clear?? UA Glucose?? 01/17/24 17:50?? Negative?? 12/10/23?? Negative?? UA Bili?? 01/17/24 17:50?? Negative?? 12/10/23?? Negative?? UA Ketones?? 01/17/24 17:50?? Negative?? 12/10/23?? Negative?? UA Spec Grav?? 01/17/24 17:50?? <=1.005?? 12/10/23?? 1.010?? UA Blood?? 01/17/24 17:50?? 2+ Abnormal?? 12/10/23?? 1+ Abnormal?? UA pH?? 01/17/24 17:50?? 6.0?? 12/10/23?? 5.5?? UA Protein?? 01/17/24 17:50?? Negative?? 12/10/23?? Negative?? UA Urobilinogen?? 01/17/24 17:50?? Normal?? 12/10/23?? Normal?? UA Nitrite?? 01/17/24 17:50?? Negative?? 12/10/23?? Negative?? UA Leuk Est?? 01/17/24 17:50?? Negative?? 12/10/23?? Negative?? UA Culture Ind?.?? 01/17/24 17:50?? Not Indicated?? 12/10/23?? Not Indicated? UA Microscopic?? LATEST RESULTS?? HISTORICAL RESULTS?? UA WBC?? 01/17/24 17:50?? 0-3?? 12/10/23?? 0-3?? UA RBC?? 01/17/24 17:50?? 5-10?? 12/10/23?? 3-5?? UA Squam Epithelial?? 01/17/24 17:50?? Few Abnormal?? 12/10/23?? Rare?? UA Mucous?? 01/17/24 17:50?? None Seen?? 12/10/23?? None Seen?? UA Bacteria?? 01/17/24 17:50?? None Seen?? 12/10/23?? None Seen? Electronically Signed on 01/17/24 07:46 PM Esther Hodgson MD Emergency department Discharge instructions * Esther Hodgson MD: PERFORM Event Display: ED Discharge Information Authored Date: [id number] KAELA GRAY :1970 Age:53 years Sex:Male Visit Date:01/17/2024 Primary Care Physician: Bin Boyce MD Discharge Instructions We would like to thank you for allowing us to assist you with your healthcare needs. The following includes patient education materials and information regarding your injury/illness. Diagnosis from Today's Visit Rt flank pain Discharge Vitals Heart Rate??(Peripheral) 81 Respiratory Rate?? 18 Blood Pressure?? 152/77?? SpO2?? 98% Height?? 66.00 in (167.64 cm) Weight??(Estimated) 460.07 lb (208.65 kg) BMI?? 74.24 Allergies Zoloft??(Chest pain) adenosine??(Rapid heart beat) buPROPion gabapentin What to Do Next Instructions from Your Care Team You may take up to 1000 mg??of Tylenol??(acetaminophen) every 6 hours as needed??for pain or discomfort for maximum 4000 mg in 24 hours or you may permanently hurt your liver.?? Take your Flomax (tamsulosin) 0.4 mg daily.?? For??severe pain you may take??oxycodone??5 mg??1-2 tabs every 6 hours as needed for severe pain.?? If you worsen return to the emergency department or see primary care provider. You Need to Schedule the Following Appointments Follow Up with??Follow up with primary care provider When:??Within 1 to 2 weeks Upcoming Scheduled Appointments Friday 12:40 PM EDT ?? With: Suzy Hall [employer] Where: [facility] [address] [place] [address] Status: Confirmed Friday 10:15 AM EST ?? With: Bernarda Aguilar NP Where: [facility] [address] [place] [address] Status: Confirmed You were treated [...] Why Instructions Next Dose New oxyCODONE (oxyCODONE 5 mg oral tablet) 1 tab Oral (given by mouth) Every 4 hours as needed for as needed for pain Rt flank pain Duration: 5 Days Pickup at [id number] Unchanged apixaban (Eliquis 5 mg [...] 3 Days Unchanged potassium chloride (Potassium Chloride (Sok-Ckwt-Qgh 10) 10 mEq oral tablet, extended release) 4 tabs Oral (given by mouth) Every day Atrial fibrillation Unchanged sulfamethoxazole-trimethoprim (Bactrim) 600 Milligrams 2 times a day Unchanged torsemide (torsemide 40 mg oral tablet) 1 tab Oral (given by mouth) Every day Atrial fibrillation Pharmacy Information [facility] [id number]: [address] [place] [address] [phone] Education Materials Renal Colic Renal colic is pain that is caused by passing a kidney stone. The pain can be sharp and severe. It may be felt in the back, abdomen, side (flank), or groin. It can cause nausea. Renal colic can come and go. Follow these instructions at home: Watch your condition for any changes. The following actions may help to lessen any discomfort that you are feeling: Medicines ? Take ptvi-eye-pjjlzoi and prescription medicines only as told by your health care provider. ? Do not drive or use heavy machinery while taking prescription pain medicine. Eating and drinking ? Drink enough fluid to keep your urine pale yellow. You may be instructed to drink at least 8???10 glasses of water each day. Follow instructions from your health care provider. ? If directed, change your diet. This may include: ? Limiting how much sodium you eat. You may need to eat less than 2 grams (2,000 mg) per day. ? Eating more fruits and vegetables. ? Limiting how much animal protein, such as red meat, poultry, fish, and eggs, you eat. ? Avoiding foods such as spinach, rhubarb, sweet potatoes, and nuts. These make kidney stones more likely to form. ? Follow instructions from your health care provider about eating or drinking restrictions. General instructions ? Keep all follow-up visits as told by your health care provider. This is important. ? Collect urine samples as told by your health care provider. You may need to collect a urine sample: ? 24 hours after you pass the stone. ? 8???12 weeks after passing the kidney stone, and every 6???12 months [...] makeup of your kidney stone may help understand how to prevent you from getting kidney stones in the future. Contact a health care provider if: ? You have a fever or chills. ? Your urine smells bad or looks cloudy. ? You have pain or burning when you pass urine. Get help right away if: ? Your flank pain or groin pain suddenly worsens. ? You become confused or disoriented or you lose consciousness. Summary ? Renal colic is pain that is caused by passing a kidney stone. ? Take ebwd-uux-rqiurde and prescription medicines only as told by your health care provider. ? Drink enough fluid to keep your urine pale yellow. You may be instructed to drink at least 8???10 glasses of water each day. Follow instructions from your health care provider. ? Strain your urine every time you urinate, for as long as directed. Use the strainer that your health care provider recommends. ? Do not throw out the kidney stone after passing it. Keep the stone so it can be tested by your health care provider. This information is not intended to replace advice given to you by your health care provider. Make sure you discuss any questions you have with your health care provider. Document Revised: 06/30/2022 Document Reviewed: 07/01/2022 [employer] Patient Education ?? 2022 [employer] Tests Performed Medications and Immunizations Administered Given oxyCODONE 5 mg oral tablet, 5 mg, Oral Lab Test Name Test Result Date/Time UA Color YELLOW. 01/17/2024 17:50 EST UA Appear CLEAR. 01/17/2024 17:50 EST UA Glucose NEGATIVE 01/17/2024 17:50 EST UA Bili NEGATIVE 01/17/2024 17:50 EST UA Ketones NEGATIVE 01/17/2024 17:50 EST UA Spec Grav <=1.005 01/17/2024 17:50 EST UA Blood 2+ 01/17/2024 17:50 EST UA pH 6.0 01/17/2024 17:50 EST UA Protein NEGATIVE 01/17/2024 17:50 EST UA Urobilinogen 0.2 Uro 01/17/2024 17:50 EST UA Nitrite NEGATIVE 01/17/2024 17:50 EST UA Leuk Est NEGATIVE 01/17/2024 17:50 EST UA Culture Ind?. Not Indicated 01/17/2024 17:50 EST UA WBC 0-3 01/17/2024 17:50 EST UA RBC 5-10 01/17/2024 17:50 EST UA Squam Epithelial Few 01/17/2024 17:50 EST UA Mucous None Seen 01/17/2024 17:50 EST UA Bacteria None Seen 01/17/2024 17:50 EST Patient/Invas Tech Signature Patient Name:KAELA GRAY I have received this information and my questions have been answered. Patient/Invas Tech Name: Patient/Invas Tech Signature: Relationship to Patient: Witness Name/Signature: Date: Electronically Signed on: 01/17/2024 19:44 ESTSigned by:[facility] Emergency department Note * Fadia Sevilla M: PERFORM Event Display: ED Notes Authored Date: [id number] Patient Care team information Care Team Personnel Name: Suresh Roth MD Position: Physician Member Role: Informed Provider Address: Address: [address] [place] [address]- [place] Name: Bin Boyce MD Position: No Access Member Role: Primary Care Physician Address: Address: [facility] [address] [place] [address]- [place] Care Team Related Persons Name: ISAAC MASON Address: Home [address] [facility], [phone]
--- OUTSIDE RECORDS SUMMARY | 2024-05-17 14:29 | XMS_ITS | Continuity of Care Document ---
Author Name Unknown Organization [facility] Address [address] [place] [address] Care Team Providers Care Reliner Name Role Phone [facility] [id number] Date(s): 12/31/23 - 12/31/23 [facility] [address] [place] [address] Encounter Diagnosis Atrial fibrillation(Discharge Diagnosis) - 12/31/23 Supraventricular tachycardia(Discharge Diagnosis) - 12/31/23 Hypertensive disorder(Discharge Diagnosis) - 12/31/23 Atherosclerotic heart disease of [place] coronary artery without angina pectoris (Final) - Discharge Disposition: Home or Self Care Attending Physician: Suzy Hall NP Allergies, Adverse Reactions, Alerts Substance Reaction Severity Status adenosine 1 Rapid heart beat Severe Active gabapentin Unknown Active buPROPion Unknown Active Zoloft Chest pain Severe Active 1PT had an adverse reaction HR went up to 250%27s Assessment and Plan Extracted from: Title:Cardiology Clinic - Office Visit Note Auth or:Suzy Hall NP Date:12/31/23 Atrial fibrillation??I48.91 Actions: COMPLETED - 76574 Office/Outpatient Visit - Established Patient, Level 3 (20-29 min)., 12/31/23 11:51:00 EST, Atrial fibrillation FUTURE - Follow-Up Appointment Request SALIMA, *Est. 03/30/24 +/- 21 days, Future Order, In Approximately, [facility] ?? Hypertensive disorder??I10 ?? Supraventricular tachycardia??I47.10 ?? Future Appointments Future Scheduled Tests Laboratory* [...] Stop Date: 09/16/24 Status: Ordered Potassium Chloride (Lvp-Qqwc-Soq 10) 10 mEq oral tablet, extended release 4 tabs, Oral, Daily, # 360 tab, 3 Refill(s), Pharmacy: [facility], 167.64, cm, 10/06/23 12:44:00 EST, Height, 204.12, [...] Range]: 1 Peripheral Pulse Rate [60-100 bpm] 62 bp m (12/31/23 12:16 PM) Blood Pressure [90-140/60-90 mmHg] 143/7 0mmHg *HI* (12/31/23 12:16 PM) Mean Arterial Pressure, Cuff [65-140 mmH g] 94 mmHg (12/31/23 12:16 PM) Weight 210.90 kg (12/31/23 12:16 PM) Weight Measured (lbs) 464.954 lb (12/31/23 12:16 PM) Weight Dosing 210.900 kg (12/31/23 12:16 PM) Height 167.64 cm (12/31/23 12:16 PM) Height/Length Measured (inches) 66 inch (12/31/23 12:16 PM) BSA Measured 3.13 m2 (12/31/23 12:16 PM) Body Mass Index 75.04 kg/m2 (12/31/23 12:16 PM) Social History Social History Type Response Smoking Status Smoking tobacco use: Former tobacco user;Former smokeless tobacco user, quit more than 30 days ago; Number of years: 15; entered on: 10/06/23 Sex Male Physician Outpatient Note * Suzy Hall APPLICATIONS SUPPORT ANALYST: PERFORM Event Display: Office Clinic Note Physician Authored Date: [id number] ROLO GRAY :1970 Age:53 years Sex:Male Visit Date:12/31/2023 Primary Care Physician: Gracie [facility], Bin Moe MD History of Present Illness Cardiac Complaints 1. CAD- NSTEMI 2016, EMMY OM1. 2. SVT 3. Atrial fibrillation- Ablation 06/2020, repeat ablation 01/2021 ? This is a 52-year-old gentleman that last saw ??in office on 09/30/2023 for atrial fibrillation, CAD, SVT, heart failure with??preserved ejection fraction. At his last visit he was??reporting lower extremity edema??going on for about a year, and was on 20 mg of Lasix.?? There was no dis cussion about Entresto or Jardiance, this was left for the conversation today.?? His Lasix was stopped??and switched to torsemide 40 mg??with a Chem-7 to be done in 10 days after he started.?? He weighed 450 pounds in the office??at his last visit and an estimated 10 pounds of excess fluid weight, so his dry weight should be around 440 pounds. He is here today to discuss his heart failure.?? He is maintained on Torsemide 40mg, Eliquis 5mg BID, asa 81mg, lisinopril 2.5mg, metoprolol 50mg. ?? He states that he has had a bladder infection recently and providers think that there is something going on with his lower GI system, they did find another 2 mm kidney stone??so he is on Bactrim currently.?? He states that everything feels good and he feels like his medications are going well.?? Hedoes report??mild fluttering for about 2 seconds twice a week??when he is watching TV, however someweeks he does not feel it at all. ??This fluttering does not cause dyspnea/pain/syncope??or??diaphoresis.?? He does have documented SVT??from a Zio monitor.?? He denies chest pain,??dyspnea, syncope,orthopnea, PND??or worsening edema. ?? He was prescribed 40 mg of torsemide by?? in September.?? He states that he is not been taking this for a couple of weeks now in fear that he was going to get another kidney stone. ??When hewas taking the medication he took it around 9 AM in the morning, he would urinate within 30 minutes, and this increased urination lasted for about an hour and 1/2 to 2 hours without any nocturia.?? He did weigh 464 pounds in the office today, he states that he was 477 pounds in the hospital last??week. ??In the appointment with he weighed 450 pounds and??it was determined that his dry weight was 440 pounds??at this appointment.?? He states that??he has been wearing compression socks daily and he does not notice any edema??since stopping the torsemide.?? When he was taking the torsemide he did notice a decrease in swelling??mildly.?? He is drinking about a half a gallon of water aday with 8 ounces of tea.?? His consumption of sodium depends on??his diet??that week which really depends on how much money they have for groceries that week.?? Occasionally they will have to eat more prepackaged foods??instead of fresh produce which does increase his sodium content. ?? He??does take his blood pressure at home and is averaging??120-127 systolic. Review of Systems A complete review of systems is negative other than as noted in the history of present illness. Physical Exam Vitals & Measurements HR:??62??(Peripheral)?? BP:??143/70?? SpO2:??97%?? HT:??167.64??cm?? WT:??210.90??kg?? BMI:??75.04?? BSA:??3.13?? HEENT: Normocephalic, atraumatic Respirations: Clear to auscultation [...] 1. ??Thrombus. ??Large. ??RCA normal. ??Ramus normal. [place] EMMY x1???OM1. Event monitor: February 22, 2021. ??11 days 4 hours. ??ZIO monitor. ??[place]. ??Baseline rhythm sinus, average rate 57 bpm, range 41-95 bpm. ??No pauses greater than or equal to 3 seconds. ??No AV block. ??Rare PAC. ??No SVT. ??Less than 1% burden PVC. ??No NSVT. August 02, 2020. ??13 days 21 hours. ??[place]. ??Baseline rhythm sinus, average 64 bpm, ryioh53-440 bpm. ??No pauses. ??Rare single PAC. ??19 [...] bpm, axes and intervals within normal limits. ?? 52-year-old gentleman??with coronary disease and heart failure with preserved ejection fraction. ?? Coronary Artery disease:??He is asymptomatic at this time without??signs or symptoms of ischemia, and he is on proper??medications.?? No change to these medications at this time. ?? SVT/atrial fibrillation:??He is in a sinus rhythm today with 64 bpm and has had a history of 2??ablations at [facility].?? He states that he occasionally will feel his heart fluttering??but his watch does not tell him of any arrhythmia.?? No change to his??regimen at this time. ?? Heart failure with Preserved ejection Fraction:??I discussed this diagnosis with him at length today. ??He stated that no one has ever told him that he has heart failure at all??and if this was something that was a concern that he would have heard it before this time. ??I explained to him??heartfailure and what preserved and reduced ejection fraction would mean??at length today. ??I also explained to him??options of how to help??treat heart failure with the addition of Entresto and Jardiance to his medication regimen.?? I explained that Entresto and Jardiance??do help??improve heart failure but also reduces??the likelihood of being admitted into the hospital due to heart failure or prolonging hospital stays??and admission stays due to heart failure.?? He states??everything feels goodand I do not want to feel horrible with changing medications, etc. juggling act, I would like to keep things the way that they are right now.?? He is going to keep this in the back burner of his mind??and think about it in the future. ??I did talk to him that we would stop his lisinopril and startEntresto and Jardiance in 2 days??and he is waiting to??think about this in the future.?? It soundslike??his torsemide, when taken was??a therapeutic dose.?? He does not have any significant edema on exam today but is 264 pounds. ??He states that he has not seen any swelling either??and that the compression stockings are really a life saver for him. ??I did suggest a weight base management but he states that he cannot afford a scale for at home.?? He is going to take the torsemide as an??as needed basis and call me if he starts to see any??increased swelling in his lower extremities so then we can start the torsemide again and get another Chem-7??after he does start it.?? I will see him again in 3 months??to check in on how he is doing, he knows to call in with any questions or concerns in the meantime. ??It was a pleasure to meet Rolo. Clinic Assessment/Plan Atrial fibrillation??I48.91 Actions: COMPLETED - 87090 Office/Outpatient Visit - Established Patient, Level 3 (20-29 min)., 12/31/23 11:51:00 EST, Atrial fibrillation FUTURE - Follow-Up Appointment Request [facility], *Est. 03/30/24 +/- 21 days, Future Order[facility] ?? Hypertensive disorder??I10 ?? Supraventricular tachycardia??I47.10 ?? Problem List/Past Medical History Ongoing Atrial [...] 3 Days Unchanged potassium chloride (Potassium Chloride (Zru-Yfhv-Rio 10) 10 mEq oral tablet, extended release) [...] infarction: Father and Brother. Electronically Signed on 12/31/23 01:10 PM Suzy Hall NP Patient Care team information Care Team Personnel Name: Suresh Roth MD Position: Physician Member Role: Informed Provider Address: Address: [address] [place] [id number]- Name: Bin Boyce MD Position: No Access Member Role: Primary Care Physician Address: Address: [facility] [address] [place] [address]- [place] Care Team Related Persons Name: ISAAC MASON Address: Home [address] [facility], [id number]
== END 2024-05-17 14:26 | disposition home or self-care (01) ==
LOC: LBN 14:25
PROVIDERS: PCP Internal Medicine; Visit Provider Urology
DX: R31.29 Other microscopic hematuria (principal)
CPT/HCPCS: 87086

== ENCOUNTER 2024-06-04 20:32 | Outpatient (REF) | payer MEDICAID, SELFPAY ==
--- OUTSIDE RECORDS SUMMARY | 2024-06-04 20:40 | XMS_ITS | Encounter Summary ---
[place] [address] Care Team Providers Care Millwright Supervisor Name Role Phone Amira Hooks Primary Care Provider Encounter Details Date Type Department Care Team (Late st Contact Info) Description 06/04/2024 Telephone [place] [address] Michelle Reed, RN Social History Tobacco Use Types Packs/Day Years Used Date Smoking Tobacco: Former Cigarettes 1.5 15 1 - 2009 Smokeless Tobacco: Former Chew Quit: 2013 Alcohol Use Standard Drinks/Week Comments No 0 (1 standard drink = 0.6 oz pur e alcohol) IPV Inpatient Questions Answer Date Recorded Does Anyone Try to Keep You From Having Contact with Others or Doing Things Outside Your Home? unable to answer (comment required) 05/24/2024 Feels Threatened by Someone unable to an swer (comment required) 05/24/2024 Feels Unsafe at Home or Work/School unab le to answer (comment required) 05/24/2024 Physical Signs of Abuse Present no 05/24/2024 Sex and Gender Information Value Date Recorded Sex Assigned at Not on file Gender Identity Male 02/14/2021 11:07 PM EDT Sexual Orientation Not on file documented as of this encounter Miscellaneous Notes * Telephone Encounter - Michelle Reed RN - 06/04/2024 1:47 PM EDT S/p 7/15/24 URS/LL right Stent removal 06/11/24 * Telephone Encounter - Michelle Reed RN - 06/04/2024 1:43 PM EDT Copied from CRM #[id number]. Topic: Specialty Dept CRMs - Generic Call >> Jun 04, 2024 11:20 AM Adilia Rodney wrote: Specialist: Rachel Carrasco MD Relationship (if other than patient-full name): self Reason for Call: Patient calling to see if he can speak to a nurse about the pain he is feeling. Patient considering ER visit but was hoping to get something from our clinic to help. Please call to discuss. documented in this encounter Plan of Treatment Upcoming Encounters Date Type Department Care Team (Latest Contact Info) Description 06/07/2024 2:00 PM EDT Office Visit Gastroenterology at [place] [phone] Joan Castro MD [facility] [place] [address] 06/11/2024 1:03 PM EDT Hospital Encounter Main Operating Room [address] Rachel Carrasco MD [facility] [place] [address] 06/11/2024 1:03 PM EDT - 06/11/2024 1:58 PM EDT Surgery Main Operating Room [place] [phone] Rachel Carrasco MD [facility] [place] [address] CYSTO, REMOVAL OF STENT, FOREIGN BODY OR CALCULUS, SIMPLE (WRVU 2.81) 06/23/2024 10:00 AM EDT Office Visit Cardiology at [address] [place] [address] Mo Horne MD [facility] [place] [address] Scheduled Procedures Name Priority Associated Diagnoses Date/Ti me CYSTO, REMOVAL OF STENT, FOR EIGN BODY OR CALCULUS, SIMPLE (WRVU 2.81) NEPHROLITHIASIS 06/11/2024 1:03 PM EDT documented as of this encounter Visit Diagnoses Not on filedocumented in this encounter Care Teams Millwright Supervisor Relationship Specialty Start Date End Date Amira Hooks PA [address] [place] [id number] PCP - General Family Medicine 07/25/22 documented as of this encounter
--- OUTSIDE RECORDS SUMMARY | 2024-06-04 20:40 | XMS_ITS | Encounter Summary ---
[place] [address] Care Team Providers Care Hearing Aid Fitter Name Role Phone Amira Hooks Primary Care Provider Encounter Details Date Type Department Care Team (Late st Contact Info) Description 05/21/2024 [place] [address] Michelle Reed, RN Social History Tobacco Use [...] Your Home? unable to answer (comment required) 04/09/2024 Feels Threatened by Someone unable to an swer (comment required) 04/09/2024 Feels Unsafe at Home or Work/School unab le to answer (comment required) 04/09/2024 Physical Signs of Abuse Present no 04/09/2024 Sex and Gender Information Value Date Recorded Sex Assigned at Not on file Gender Identity Male 02/14/2021 11:07 PM EDT Sexual Orientation Not on file documented as of this encounter Miscellaneous Notes * Telephone Encounter - Michelle Reed RN - 05/21/2024 12:34 PM EDT Copied from CRM #[id number]. Topic: Specialty Dept CRMs - Generic Call >> May 21, 2024 12:22 PM Nat Ruth wrote: Specialist: Jose Juan Anton MD Relationship (if other than patient-full name): Autumn Aguilar, spouse Reason for Call: Autumn is returning a call from Dr Anton. Autumn advised that the patient is unhappy at this time and has a few questions. He is inquiring what type of infection he has. He would also like to know if the procedure that is scheduled for Friday can still be done. Please call to advise. documented in this encounter Plan of Treatment Upcoming Encounters Date Type Department Care Team (Latest Contact Info) Description 06/07/2024 2:00 PM EDT Office [place] [phone] Joan Castro MD [facility] [place] [address] 06/11/2024 1:03 PM EDT Hospital Encounter [place] [phone] Rachel Carrasco MD [facility] [place] [address] 06/11/2024 1:03 PM EDT - 06/11/2024 1:58 PM EDT Surgery [place] [phone] Rachel Carrasco MD [facility] [place] [address] CYSTO, REMOVAL OF STENT, FOREIGN BODY OR CALCULUS, SIMPLE (WRVU 2.81) 06/23/2024 10:00 AM EDT Office Visit Cardiology at [address] [phone] Mo Horne MD [facility] [place] [address] Scheduled Procedures Name Priority Associated Diagnoses Date/Ti me CYSTO, REMOVAL OF STENT, FOR EIGN BODY OR CALCULUS, SIMPLE (WRVU 2.81) NEPHROLITHIASIS 06/11/2024 1:03 PM EDT documented as of this encounter Visit Diagnoses Not on filedocumented in this encounter Care Teams Hearing Aid Fitter Relationship Specialty Start Date End Date Amira Hooks PA [address] [place] [id number] PCP - General Family Medicine 07/25/22 documented as of this encounter
--- OUTSIDE RECORDS SUMMARY | 2024-06-04 20:40 | XMS_ITS | Encounter Summary ---
Author Organization [facility] [place] [address] Care Team Providers Care Inventory Control Associate Name Role Phone Amira Hooks Primary Care Provider [phone] Encounter Details Date Type Department Care Team (Late st Contact Info) Description 06/04/2024 [place] [phone] Xenia Mcrae, RN Social History Tobacco Use Types Packs/Day Years Used Date Smoking Tobacco: Former Cigarettes 1.5 15 1 - 2009 Smokeless Tobacco: Former Chew Quit: 2013 Alcohol Use Standard Drinks/Week Comments No 0 (1 standard drink = 0.6 oz pur e alcohol) [facility] Inpatient Questions Answer Date Recorded Does Anyone [...] on file documented as of this encounter Progress Notes * Xenia Mcrae RN - 06/04/2024 7:55 AM EDT Patient is scheduled for cysto with stent removal under anesthesia on 8/2/24. Patient will continue anticoagulation as he did for his URS/LL on 05/24/24. documented in this encounter Miscellaneous Notes * Telephone Encounter - Xenia Mcrae RN - 06/04/2024 7:55 AM EDT ----- Message from Gabriel Perez RN sent at 06/04/2024 7:31 AM EDT ----- Regarding: dos 06-11-24 Good morning, In checking the chart we found no pre-op instructions for Eliquis. Please contact the patient directly with instructions if necessary. Thank you, Gabriel ALEJANDRO P[facility] documented in this encounter Plan of Treatment Upcoming Encounters Date Type Department Care Team (Latest Contact Info) Description 06/07/2024 2:00 PM EDT Office Visit Gastroenterology at [place] [phone] Joan Castro MD [facility] [place] [address] 06/11/2024 1:03 PM EDT Hospital Encounter Main Operating Room [place] [phone] Rachel Carrasco MD [facility] [place] [address] 06/11/2024 1:03 PM EDT - 06/11/2024 1:58 PM EDT Surgery Main Operating Room [place] [phone] Rachel Carrasco MD [facility] [place] [address] CYSTO, REMOVAL OF STENT, FOREIGN BODY OR CALCULUS, SIMPLE (WRVU 2.81) 06/23/2024 10:00 AM EDT Office Visit Cardiology at [address] [place] [phone] Mo Horne MD [facility] [place] [address] Scheduled Procedures Name Priority Associated Diagnoses Date/Ti me CYSTO, REMOVAL OF STENT, FOR EIGN BODY OR CALCULUS, SIMPLE (WRVU 2.81) NEPHROLITHIASIS 06/11/2024 1:03 PM EDT documented as of this encounter Visit Diagnoses Not on filedocumented in this encounter Care Teams Inventory Control Associate Relationship Specialty Start Date End Date Amira Hooks PA [address] [place] [id number] PCP - General Family Medicine 07/25/22 documented as of this encounter
--- OUTSIDE RECORDS SUMMARY | 2024-06-04 20:40 | XMS_ITS | Encounter Summary ---
Author Organization [facility] Address [facility] [place] [address] Care Team Providers Care Truck Shop Mechanic Name Role Phone Amira Hooks Primary Care Provider Encounter Details Date Type Department Care Team (Latest Contact Info) Description 04/09/2024 2:11 PM EDT - 04/09/2024 11:59 PM EDT Hospital Encounter XRay at [address] [place] [address] Rachel Carrasco MD [facility] [place] [address] Discharge Disposition: Home Social History Tobacco Use Types Packs/Day Years Used Date Smoking Tobacco: Former Cigarettes 1.5 15 1 995 - 2009 Smokeless Tobacco: Former Chew Quit: [...] on file documented as of this encounter Medications at Time of Discharge Medication Sig Dispensed Refills Start Date End Date tamsulosin (Flomax) 0.4 mg capsule Take 1 capsule by mouth daily. 90 tablet 3 04/09/2024 sucralfate (Carafate) 1 gram tabletIndications:Dyspe psia Take 1 tablet by mouth 4 times daily. If needed for upper abdominal discomfort and burning. Administer on an empty stomach. Take at least 2 hours before and 2 hours after other medications to prevent problems with absorption. 120 tablet 3 03/26/2024 prucalopride (Motegrity) 2 mg tabletIndications:Chron ic constipation Take 1 tablet by mouth daily. 30 tablet 3 03/02/2024 ipratropium (ATROVENT) 21 mcg (0.03 %) [place]wing, Non-Aerosol INSTILL 2 SPRAYS VIA NOSTRILS AT BEDTIME 09/18/2023 torsemide (Demadex) 20 mg tablet Take 40 mg by mouth daily. potassium chloride ER (Klor-Con, K-Tab) 10 mEq ER tablet Take 4 tablets by mouth Daily at Noon. 10/31/[address] capsule Take 60 mg by mouth daily. 04/02/2023 loratadine (Claritin) 10 mg Tablet Take 10 mg by mouth daily as needed. 04/02/2023 metoclopramide (Reglan) 5 mg tablet Take 5 mg by mouth 3 times daily as needed. 06/03/2023 apixaban (Eliquis) 5 mg TabletIndications:Atria l flutter, unspecified type Take 1 tablet by mouth 2 times daily. 180 tablet 1 04/24/2022 atorvastatin (Lipitor) 20 mg TabletIndications:Hyper lipidemia, unspecified hyperlipidemia type Take 1 tablet by mouth every evening. 90 tablet 05/08/2021 metoprolol succinate XL (Toprol XL) 50 mg Tablet Sustained Release 24 hr Take 1 tablet by mouth 2 times daily. 180 tablet 3 03/19/2021 furosemide (Lasix) 20 mg Tablet Take 1 tablet by mouth daily. 30 tablet 01/24/2021 lamoTRIgine (LaMICtal) 100 mg Tablet Take 1 tablet by mouth daily. 30 tablet 12 01/14/2021 clindamycin (CLINDAGEL) 1 % Gel APPLY TOPICALLY TO AFFECTED AREA TWICE DAILY 30 g 1 12/19/2020 lisinopriL (Prinivil;Zestril) 2.5 mg TabletIndications:Essen tial hypertension Take 1 tablet by mouth daily. 90 tablet 3 05/26/2020 acetaminophen (TYLENOL) 325 mg Tablet Take 2 tablets by mouth every 6 hours as needed for Pain. 30 tablet 1 07/21/2018 nitroGLYcerin (NITROSTAT) 0.4 mg Tablet, Sublingual DISSOLVE 1 UNDER TONGUE NEEDED 4 03/10/2018 aspirin 81 mg Tablet, Delayed Release (E.C.) Take 1 tablet by mouth daily. 30 tablet 3 07/16/2017 clonazePAM (KLONOPIN) 1 mg Tablet Take 1 mg by mouth 3 times daily as needed for Anxiety. oxyCODONE (Roxicodone) 10 mg tablet Take 1 tablet by mouth Three Times Daily for DHE. 02/06/2024 04/10/2024 documented as of this encounter Plan of Treatment Upcoming Encounters Date Type Department Care Team (Latest Contact Info) Description 06/07/2024 2:00 PM EDT Office [place] [phone] Joan Castro MD [facility] [place] [address] 06/11/2024 1:03 PM EDT Hospital Encounter Main Operating Room [place] [phone] Rachel Carrasco MD [facility] [place] [address] 06/11/2024 1:03 PM EDT - 06/11/2024 1:58 PM EDT Surgery Main Operating Room [place] [phone] Rachel Carrasco MD [facility] [place] [address] CYSTO, REMOVAL OF STENT, FOREIGN BODY OR CALCULUS, SIMPLE (WRVU 2.81) 06/23/2024 10:00 AM EDT Office Visit Cardiology at [address] [place] [address] Mo Horne MD [facility] [address] Scheduled Procedures Name Priority Associated Diagnoses Date/Ti me CYSTO, REMOVAL OF STENT, FOR EIGN BODY OR CALCULUS, SIMPLE (WRVU 2.81) NEPHROLITHIASIS 06/11/2024 1:03 PM EDT documented as of this encounter Procedures Procedure Name Priority Date/Time Associated Diagnosis Comments XR FLUORO NO RAD <1HR - OR USE Routine 04/09/2024 2:12 PM EDT documented in this encounter Results * XR Fluoro No Rad <1Hr - OR Use (04/09/2024 2:12 PM EDT) Narrative Dicom, Auditing User - 04/09/2024 2:13 PM EDT This exam is auto-finalizing. No interpretation was done. Rachel Carrasco MD IMG FLUORO ORDERABLE S documented in this encounter Visit Diagnoses Not on filedocumented in this encounter Care Teams Truck Shop Mechanic Relationship Specialty Start Date End Date Amira Hooks PA [address] [place] [id number] PCP - General Family Medicine 07/25/22 documented as of this encounter
--- OUTSIDE RECORDS SUMMARY | 2024-06-04 20:40 | XMS_ITS | Encounter Summary ---
Author Organization [facility] [place] [address] Care Team Providers Care Deportation Officer Name Role Phone Amira Hooks Primary Care Provider Reason for Visit * Auth/Cert (Routine) Specialty Diagnoses / Procedures Referred By Zeyad mishra Referred To Contact Diagnoses Nephrolithiasis right ureteral stone Procedures PRO CYSTO/URETEROSCOPY W/LITHOTRIPSY INC INDWELLING STENT INSERTION CYSTOURETEROSCOPY,DIAGNOSTI C,W/ LITHOTRIPSY INC. INSERTION OF INDWELLING URETERAL STENT (WRVU 8) MODIFIER HOLMIUM LASER Racehl Carrasco MD [facility] [place] [place] [address] [facility] Referral ID Status Reason Start Date Expiration Date Visits Re quested Visits Authorized [id number] 1 1 Encounter Details Date Type Department Care Team (Late st Contact Info) Description 05/24/2024 7:30 AM EDT - 05/24/2024 9:45 AM EDT Surgery [place] [phone] Rachel Carrasco MD [facility] [place] [address] CYSTOURETEROSCOPY,DIAG NOSTIC,W/ LITHOTRIPSY INC. INSERTION OF INDWELLING URETERAL STENT (WRVU 8) Social History Tobacco Use Types Packs/Day Years Used Date Smoking Tobacco: Former Cigarettes 1.5 15 1 5 - 2009 Smokeless Tobacco: Former Chew Quit: 2013 Alcohol Use Standard Drinks/Week Comments No 0 (1 standard drink = 0.6 oz pur e alcohol) DH IPV Inpatient Questions Answer Date Recorded Does [...] on file documented as of this encounter Last Filed Vital Signs Vital Sign Reading Time Taken Comments Blood Pressure 125/66 05/24/2024 9:45 AM EDT Pulse 89 05/24/2024 9:44 AM EDT Temperature 35.9 ??C (96.6 ??F) 05/24/2024 9:44 AM ED T Respiratory Rate 19 05/24/2024 9:45 AM EDT Oxygen Saturation 99% 05/24/2024 9:45 AM EDT Inhaled Oxygen Concentration - - Weight 208.2 kg (459 lb 1.6 oz) 05/24/2024 6:32 AM EDT Height 167.6 cm (5' 6) 05/24/2024 6:32 AM EDT Body Mass Index 74.1 05/24/2024 6:32 AM EDT documented in this encounter Discharge Instructions * Patient Instructions* Yuli Suero MD - 05/24/2024 9:40 AM EDT Discharge Instructions after Ureteral Stent Placement Call your doctor for: fevers greater than 101 severe nausea or vomiting increasing pain not controlled by pain medications Inability to urinate and/or large blood clots The number for questions is [phone] before 5 PM weekdays and [phone] after 5 PM and weekends if questions are urgent/emergent. Activity level: Increased activity may lead to more stent discomfort and more blood in your urine. Your activity level will be determined by your comfort level. Diet: You may resume your regular diet as tolerated. Driving: No driving while still taking opioid pain medications (wait at least 6- 8 hours since last dose). No driving if you are still sore from surgery as it may limit your ability to react quickly if necessary. Shower/Bath: No restrictions. Blood in urine: You will have blood in your urine as long as you have the stent in place. It may get better and then may worsen intermittently. This is normal. Should it become more bloody, decrease your activity and increase your fluid intake. Stent Discomfort: Most patients experience some degree of discomfort related to their ureteral stent. Symptoms include flank pain (increased during urination), frequency and urgency of urination, burning or pain in the bladder or urethra with urination, pelvic discomfort, and blood in the urine. Your symptoms may be exacerbated by activity. To manage your stent symptoms, try the following: - drink plenty of fluid (~2 liters per day or enough to make urine clear or pale yellow) - take acetaminophen (Tylenol), up to 650mg every 4 hours (regular strength) or 1000mg every 6 hours (extra strength) - Take flomax daily until your stent is removed if you are experiencing stent pain. - You may have been prescribed Pyridium additionally for pain. Please take this three times per dayuntil your stent is removed. This helps with bladder spasms. Anticoagulation: You may restart your Eliquis tonight. Antibiotic: - You have been given a prescription for Macrobid. Please take twice a day for two days following surgery. Follow up Appointments: You will be scheduled for an in-office stent removal in 1 week. Please call [phone] if you do not hear from the Urologic clinic in the next couple of days about when your appointment will be scheduled. It is important to remember that your ureteral stent cannot stay in place permanently. If it remains in place too long it may become encrusted with stone and require additional surgery to remove it. Please call our office if you do not receive your appointment or if you need to reschedule. Future Appointments Date Time Provider Department Center 06/07/2024 2:00 PM Joan Castro MD [facility] 06/23/2024 10:00 AM Mo Horne MD [facility] documented in this encounter Medications at Time of Discharge Medication Sig Dispensed Refills Start Date End Date oxyCODONE (Roxicodone) 10 mg tablet Take 1 tablet by mouth every 4 hours. 15 tablet 04/10/2024 tamsulosin (Flomax) 0.4 mg capsule Take 1 [...] 03/02/2024 ipratropium (ATROVENT) 21 mcg (0.03 %) [place], Non-Aerosol INSTILL 2 SPRAYS VIA NOSTRILS AT [...] 3 times daily as needed for Anxiety. phenazopyridine (Pyridium) 200 mg tablet Take 1 tablet by mouth 3 times daily as needed for Pain for up to 3 days. 9 tablet 05/24/2024 05/27/2024 nitrofurantoin (Macrobid) 100 mg capsule Take 1 capsule by mouth 2 times daily for 2 days. 4 capsule 05/24/2024 05/26/2024 documented as of this encounter Progress Notes * Edwige Giang RN - 05/24/2024 11:03 AM EDT IV removed, site benign. My assessment remains unchanged from my previous assessment. No complaintsof chest pain or SOB. Discussed pain management. Patient has all belongings and has received discharge summary. Summary reviewed with pt and Autumn, all questions answered. Patient encouraged to call with any further questions or concerns. Patient discharged to home with Autumn. Pt demonstrated abilityto ambulate to bathroom prior to d/c. VSS. Tolerated PO intake. * Ivonne Fuentes RN - 05/24/2024 9:42 AM EDT Unable to assess back, pt. Over 400lbs on hover mat documented in this encounter H&P Notes * Rachel Carrasco MD - 05/24/2024 7:26 AM EDT Urology H&P Rolo Aguilar is a 53 y.o. male with a history of paroxysmal A-fib, CAD, Bipolar disorder, depression, GERD, HLD, HTN, seizures and a 2mm right ureteral stone s/p R stent placement on 04/09. He presents today for cystoscopy and right ureteroscopy with laser lithotripsy and right ureteral stent placement. There have been no changes to his history. He denies fevers/chills, chest pain, SOB, and n/v. PreOp UCx grew MMF He has completed Nitrofurantoin as prescribed. Anticoagulation: Eliquis continued Micro: Lab Results Component Value Date URINECULTURE (A) 02/17/2024 10,000-49,000 cfu/ml mixed mucosal debbie Note: Culture shows multiple bacterial species suggesting mucosal contamination. MEDICAL AND SURGICAL HISTORY Past Medical History: Diagnosis Date A-fib Anxiety Arthritis CAD (coronary artery disease) Depression Flutter-fibrillation GERD (gastroesophageal reflux disease) Hepatitis HLD (hyperlipidemia) Hypertension Seizure Past Surgical History: Procedure Laterality Date CHOLECYSTECTOMY PRO CYSTOSCOPY, INSERT URETERAL STENT Right 04/09/2024 CYSTO, STENT PLACEMENT (WRVU 2.82) performed by Rachel Carrasco MD at [facility] MAIN OR PRO LAP, CHOLECYSTECTOMY/GRAPH N/A 07/21/2018 LAPAROSCOPIC CHOLECYSTECTOMY WITH CHOLANGIOGRAM (WRVU 11.47) performed by Colt Hewitt MD [facility] MAIN OR PRO UNLISTED LAPAROSCOPIC PX LVR N/A 07/21/2018 LAPAROSCOPIC LIVER BIOPSY (WRVU 16.52) performed by Colt Hewitt MD at [facility] MAIN OR PRO UPPER GI ENDOSCOPY, BIOPSY N/A 12/29/2017 UPPER GASTROINTESTINAL ENDOSCOPY,WITH BIOPSY SINGLE OR MULTIPLE (WRVU 2.49) performed by Yusuf Tucker MD at [facility] ENDOSCOPY PRO UPPER GI ENDOSCOPY, BIOPSY N/A 03/08/2024 EGD WITH BIOPSY (WRVU 2.39) performed by Radu Silveira MD at [facility] ENDOSCOPY PRO UPPER GI ENDOSCOPY, DIAGNOSTIC N/A 12/29/2017 EGD, UPPER GI ENDOSCOPY performed by Yusuf Tucker MD at [facility] ENDOSCOPY TONSILLECTOMY ALLERGIES Allergies Allergen Reactions Adenosine Palpitations tachycardia Other reaction(s): Rapid heart beat PT had an adverse reaction HR went up to 250%27s Gabapentin Wellbutrin [Bupropion Hcl] Zoloft [Sertraline] MEDICATIONS No current facility-administered medications on file prior to encounter. Current Outpatient Medications on File Prior to Encounter Medication Sig Dispense Refill oxyCODONE (Roxicodone) 10 mg tablet Take 1 tablet by mouth every 4 hours. 15 tablet 0 tamsulosin (Flomax) 0.4 mg capsule Take 1 capsule by mouth daily. 90 tablet 3 sucralfate (Carafate) 1 gram tablet Take 1 tablet by mouth 4 times daily. If needed for upper abdominal discomfort and burning. Administer on an empty stomach. Take at least 2 hours before and 2 hours after other medications to prevent problems with absorption. 120 tablet 3 prucalopride (Motegrity) 2 mg tablet Take 1 tablet by mouth daily. 30 tablet 3 ipratropium (ATROVENT) 21 mcg (0.03 %) [place], Non-Aerosol INSTILL 2 SPRAYS VIA NOSTRILS AT BEDTIME torsemide (Demadex) 20 mg tablet Take 40 mg by mouth daily. potassium chloride ER (Klor-Con, K-Tab) 10 mEq ER tablet Take 4 tablets by mouth Daily at Noon. Dexilant [address] capsule Take 60 mg by mouth daily. loratadine (Claritin) 10 mg Tablet Take 10 mg by mouth daily as needed. metoclopramide (Reglan) 5 mg tablet Take 5 mg by mouth 3 times daily as needed. apixaban (Eliquis) 5 mg Tablet Take 1 tablet by mouth 2 times daily. 180 tablet 1 atorvastatin (Lipitor) 20 mg Tablet Take 1 tablet by mouth every evening. 90 tablet 0 metoprolol succinate XL (Toprol XL) 50 mg Tablet Sustained Release 24 hr Take 1 tablet by mouth 2 times daily. 180 tablet 3 furosemide (Lasix) 20 mg Tablet Take 1 tablet by mouth daily. 30 tablet 0 lamoTRIgine (LaMICtal) 100 mg Tablet Take 1 tablet by mouth daily. (Patient taking differently: Take 200 mg by mouth daily.) 30 tablet 12 clindamycin (CLINDAGEL) 1 % Gel APPLY TOPICALLY TO AFFECTED AREA TWICE DAILY 30 g 1 lisinopriL (Prinivil;Zestril) 2.5 mg Tablet Take 1 tablet by mouth daily. 90 tablet 3 acetaminophen (TYLENOL) 325 mg Tablet Take 2 tablets by mouth every 6 hours as needed for Pain. 30 tablet 1 nitroGLYcerin (NITROSTAT) 0.4 mg Tablet, Sublingual DISSOLVE 1 UNDER TONGUE NEEDED 4 aspirin 81 mg Tablet, Delayed Release (E.C.) Take 1 tablet by mouth daily. 30 tablet 3 clonazePAM (KLONOPIN) 1 mg Tablet Take 1 mg by mouth 3 times daily as needed for Anxiety. PHYSICAL EXAM Temp: -- Heart Rate: -- Resp: -- BP: -- SpO2: -- Heart Rate from SpO2: -- GEN: Resting comfortably, conversant, NAD. CHEST: respiratory effort normal CV: Regular rate. Labs: Recent Labs 01/04/24 1238 WBC 8.6 HGB 14.0 HCT 43.4 PLATELET 214 Recent Labs 04/09/24 1101 01/04/24 1238 NA -- 142 K -- 4.4 CL -- 105 CO2 -- 26 BUN -- 10 CREATININE 0.88 0.82 Imaging: Relevant imaging reviewed CT Urogram 02/26/24: IMPRESSION 1. Unchanged position of a 2 mm right mid ureter calculus. No hydronephrosis. No apparent fistula. A/P: 53 y.o. male who presents today for above procedures. All risks, benefits, and alternatives have been explained, and questions answered. Proceed with scheduled procedure. - Consent confirmed, all questions answered. - Patient marked - Preop abx: - SQH: N/A - T/S: N/A Yuli Suero MD PGY-1 05/21/2024 I have seen and examined the patient and reviewed the history documented and I agree with the details as written. I have reviewed the available, pertinent laboratory data and imaging. The assessment and plan were formulated in discussion with me and I agree with them as documented. Rachel Carrasco MD documented in this encounter Miscellaneous Notes * Brief Op Note - Rachel Carrasco MD - 05/24/2024 9:13 AM EDT Brief Operative Note Patient Name: Rolo Aguilar : [id number] MR#: [id number] Case Date: 05/24/2024 Surgeon: Surgeons and Role: * Rachel Carrasco MD - Primary * Yuli Suero MD - Resident - Assisting Preoperative diagnosis: right ureteral stone Postoperative diagnosis: right ureteral stone Procedure(s) (LRB): CYSTOURETEROSCOPY,DIAGNOSTIC,W/ LITHOTRIPSY INC. INSERTION OF INDWELLING URETERAL STENT (WRVU 8) (Right) MODIFIER HOLMIUM LASER (N/A) Anesthesia: General Findings:lovett urethral narrowing/ LS, indwelling right stent with minimal encrustation, removed, Medially displaced ureter, 2.5mm right mid stone mildly impacted, lasered and removed, 7F x 28cm ureteral stent placed Complications: none Estimated Blood Loss: 5cc Specimens removed during surgery: Order Name Source Comment Collection Info Order Time SPECIMEN TO PATHOLOGY rt ureteral stone rt. ureteral stone excision No 05/24/2024 9:23 AM Time specimen removed from patient: 9:23 AM Number of tissue samples (in container) 1 Biospecimen to store? No Fluids: Intraprocedure Crystalloid Total Intake lactated ringers infusion 300.00 mL ciprofloxacin (Cipro) 200 mg in dextrose 5% 100 mL infusion 200.00 mL famotidine (Pepcid) (10 mg/mL) injection 40 mg 4.00 mL Total Intake 504 mL PRBCs: none (See Anesthesia Record/Report for Other Blood Products) Urine Output: (no urine output recorded) Drains: RIGHT 7F x 28cm right ureteral stent Disposition: awakened from anesthesia, extubated and taken to the recovery room in a stable condition, having suffered no apparent untoward event. Condition: doing well without problems (Please see the Surgical Encounter Summary for any Implant and Specimen details pertinent to this patient.) Surgical Infection Prevention Bundle Used? No Attestation: Case Date: 05/24/2024 I was present and I participated during the entire procedure (does not need to include opening and closing). Rachel Carrasco MD 05/24/2024 * Op Note - Rachel Carrasco MD - 05/24/2024 8:28 AM EDT [facility] Operative Note Patient Name: Rolo Aguilar : [id number] MR#: [id number] Case Date: 05/24/2024 Surgeon: Surgeons and Role: * Rachel Carrasco MD - Primary * Yuli Suero MD - Resident - Assisting Preoperative diagnosis: right ureteral stone Postoperative diagnosis: right ureteral stone Procedure(s) (LRB): CYSTOURETEROSCOPY,DIAGNOSTIC,W/ LITHOTRIPSY INC. INSERTION OF INDWELLING URETERAL STENT (WRVU 8) (Right) MODIFIER HOLMIUM LASER (N/A) Anesthesia: General Estimated Blood Loss: Specimens removed during surgery: Order Name Source Comment Collection Info Order Time SPECIMEN TO PATHOLOGY rt ureteral stone rt. ureteral stone excision No 05/24/2024 9:23 AM Time specimen removed from patient: 9:23 AM Number of tissue samples (in container) 1 Biospecimen to store? No Drains: * No LDAs found * Surgical Closure: Primary Closure - skin incision is completely closed without any wires, madhavi, drains or other devices Disposition: awakened from anesthesia, extubated and taken to the recovery room in a stable condition, having suffered no apparent untoward event. Condition: doing well without problems (Please see the Surgical Encounter Summary for any Implant and Specimen details pertinent to this patient.) HPI/Surgical Indications: Rolo Aguilar is a 53 yo pt presenting for management of right ureteral stone. We discucssed risks including bleeding, infection,critical illness, damage to urethra, bladder, ureter (stricture / avulsion), kidney, repeat procedures, need for ureteral stent / PCN, open procedures, cardiopulmonary failure, DVT, PE, Stroke, MO, and other anesthetic risks. With an understanding he elected to proceed. Procedure Description: Rolo Aguilar was identified and consented in preop holding. The patient was then transferred to the operating room and placed on the operating room table in supine position. Venodynes were placed for DVT prophylaxis, general anesthesia was administered, and IV antibiotics consisting of ciprofloxacin were infused. Once an adequate level of general anesthesia had been obtained, the patient was moved to dorsal lithotomy and prepped and draped in usual sterile fashion. A team timeout was heldconfirming the patient's identity, planned procedure, and laterality. A 22F cystoscope was passed into the bladder and cystourethroscopy was performed with the 30-degree lens in 360 degree fashion. There was lovett anterior urethral narrowing consistent with LS. No focal mucosal abnormalities or stones were noted. The right indwelling ureteral stent was identified, grasped, and brought to the urethral meatus. This was cannulated with a glide wire which was advanced to the renal pelvis and secured as a safety wire. The bladder was emptied and a flexible ureteroscope was advanced to the level of the 2.5cm ureteralstone. The stone was noted to be somewhat impacted with ureteral edema and inflammation. A Ozzy basked was used to advance the stone proximal to a more favorable location. A 200 micron Holmium laser fiber was inserted and advanced to the level of the stone. The stone was fragmented and a Ozzy basked used to remove the stones. The flexible scope was withdrawn and we inspected the ureter which was free from injury. The ureteral length was measured with a pollock catheter backloaded thru the cystoscope over the safety wire. A retrograde pyelogram was performed to opacify the renal pelvis. We then placed a 7Fr 28cm ureteralstent over the Glidewire and removed the wire with a good coil noted on fluoroscopy in the renal pelvis and cystoscopically in the bladder. The bladder was emptied. The patient was washed, dried, awakened, and returned to recovery in good condition. All removed stones were sent to the lab for stoneanalysis. Plan: RTC 5-7 days for ureteral stent removal Surgical Infection Prevention Bundle Used? No Attestation: Case Date: 05/24/2024 I was present and I participated during the entire procedure (does not need to include opening and closing). Rachel Carrasco MD 05/24/2024 documented in this encounter Plan of Treatment Upcoming Encounters Date Type Department Care Team (Latest Contact Info) Description 06/07/2024 2:00 PM EDT Office [place] [address] Joan Castro MD [facility] [place] [address] 06/11/2024 1:03 PM EDT Hospital Encounter [place] [phone] Rachel Carrasco MD [facility] [place] [address] 06/11/2024 1:03 PM EDT - 06/11/2024 1:58 PM EDT Surgery [place] [phone] Rachel Carrasco MD [facility] [place] [address] CYSTO, REMOVAL OF STENT, FOREIGN BODY OR CALCULUS, SIMPLE (WRVU 2.81) 06/23/2024 10:00 AM EDT Office Visit Cardiology at [address] [place] [address] Mo Horne MD [facility] [place] [address] Scheduled Procedures Name Priority Associated Diagnoses Date/Ti me CYSTO, REMOVAL OF STENT, FOR EIGN BODY OR CALCULUS, SIMPLE (WRVU 2.81) NEPHROLITHIASIS 06/11/2024 1:03 PM EDT documented as of this encounter Procedures Procedure Name Priority Date/Time Associated Diagnosis Comments XR FLUORO NO RAD <1HR - OR USE Routine 05/24/2024 9:46 AM EDT KIDNEY STONE ANALYSIS Routine 05/24/2024 9:23 AM EDT SPECIMEN TO PATHOLOGY Routine 05/24/2024 9:23 AM EDT MODIFIER HOLMIUM LASER Yes 05/24/2024 7:38 AM EDT Nephrolithiasis Cysto/Ureteroscopy W/Lithotripsy Inc Indwelling Stent Insertion ([id number]) Yes 05/24/2024 7:38 AM EDT Nephrolithiasis POCT GLUCOSE Routine 05/24/2024 6:44 AM EDT CYSTOURETEROSCOPY,DI AGNOSTIC,W/ LITHOTRIPSY INC. INSERTT Routine 05/24/2024 6:16 AM EDT Nephrolithiasis IMPLANTABLE DEVICES SCAN 05/24/2024 12:00 AM EDT documented in this encounter Results * XR Fluoro No Rad <1Hr - OR Use (05/24/2024 9:46 AM EDT) Narrative Dicom, Auditing User - 05/24/2024 9:46 AM EDT This exam is auto-finalizing. No interpretation was done. Rachel Carrasco MD IMG FLUORO ORDERABLE S * Kidney Stone Analysis (05/24/2024 9:23 AM EDT) Kidney Stone Analysis Test ? Result ?Flag ??Unit ??RefValue ------- Kidney Stone Analysis ??Source: ?Right Ureter ??Stone Interpretation ? SEE COMMENTS ?50% Calcium oxalate monohydrate. 40% Calcium oxalate ?dihydrate. ??10% Calcium phosphate (apatite). ??Result Comment ? SEE COMMENTS ?For stones containing calcium oxalate, calcium phosphate, ?and/or uric acid, a 24 hr urinary supersaturation test may ?help detect underlying risk factors for this type of stone ?formation and provide guidance for a stone prevention ?strategy. ? ---ADDITIONAL INFORMATION------- ?This test was developed and its performance characteristics ?determined by [facility] in a manner consistent with CLIA ?requirements. This test has not been cleared or approved by ?the U.S. Food and Drug Administration. ?Test Performed by: ?[facility] ?[address] [place] [address] ?Councilman: Pippa Traore Ph.D.; CLIA# [id number] [facility] Calculus Other / Unknown 05/24/2024 9 :23 AM EDT 05/24/2024 3:58 PM EDT Narrative Resulting Agency Comment Spec In Lab Rachel Carrasco MD BODY FLUIDS AND STOO LS ORDERABLES Performing Organization Address [facility] Co de Phone Number [facility] [place] [phone] * Specimen to Pathology (05/24/2024 9:23 AM EDT) AP Specimen 05/24/2024 9:23 AM EDT 05/24/2024 9:23 AM EDT Narrative [facility] - 05/24/2024 9:23 AM EDT Specimen requisition ordered. ??Separate Pathology report to follow Rachel Carrasco MD PATHOLOGY/CYTOLOGY O RDERABLES Performing Organization Address [facility] Co de Phone Number [facility] [place] [phone] * POCT Glucose (05/24/2024 6:44 AM EDT) POC Glucose 116 65 - 199 mg/dL [facility] Comment: Supplemental ranges: <140 mg/dL before meals <180 mg/dL all other times of the day Blood 05/24/2024 6:44 AM EDT 05/24/2024 6:44 AM EDT Rachel Carrasco MD POINT OF CARE TEST [address] [facility] [place] [address] * Scan Doc: Implantable Devices (05/24/2024 12:00 AM EDT) Narrative 05/24/2024 12:00 AM EDT Ordered by an unspecified provider. Scanning Provider MEDIA MGR SCAN EXT O RDR/RSLT documented in this encounter Visit Diagnoses Diagnosis Nephrolithiasis Calculus of kidney Nephrolithiasis Calculus of kidney documented in this encounter Administered Medications Inactive Administered Medications - up to 3 most recent administrations Medication Order MAR Action Action Date Dose Rate Site acetaminophen (Tylenol) tablet 975 mg 975 mg, Oral, ONCE, 1 dose, On Fri05/24/24 at 0700, Administer with a SIP of water only. Maximum dose of acetaminophen is 4,000 mg from all sources in 24 hours., Day of Surgery (Day of Procedure), Routine Given 05/24/2024 6:54 AM EDT 975 mg ciprofloxacin (Cipro) 200 mg in dextrose 5% 100 mL infusion 200 mg, Intravenous, EVERY 12 HOURS, First dose on Fri05/24/24 at 0800, Until Discontinued, Administer over 60 Minutes, Indication for (Active or Suspected): Uriniary Tract/Pyelonephritis, Restricted Antibiotic: Please indicate the most appropriate choice: Pre-approved indication (state the indication in comments field) Given 05/24/2024 7:57 AM EDT 400 mg iohexoL (Omnipaque) (300 mg/mL) solution PRN, Starting on Fri05/24/24 at 0908, Until Fri05/24/24 at 1607, Intra-Operative (Intra-Procedure), Routine Given 05/24/2024 9:08 AM EDT 6.25 mLs 19- Surgical Site lactated ringers infusion 1,000 mL, at 100 mL/hr, Intravenous, CONTINUOUS, Starting on Fri05/24/24 at 0700, Until Fri05/24/24 at 1125, Day of Surgery (Day of Procedure) New Bag 05/24/2024 7:39 AM EDT New Bag 05/24/2024 6:55 AM EDT 1,000 mLs 100 mL/hr documented in this encounter Active and Recently Administered Medications Times are shown in EDT. Scheduled Medication Order 05/22/2024 05/23/2024 05/24/2024 acetaminophen (Tylenol) tablet 975 mg (COMPLETED) 975 mg, Oral, ONCE, 1 dose, On Fri05/24/24 at 0700, Administer with a SIP of water only. Maximum dose of acetaminophen is 4,000 mg from all sources in 24 hours., Day of Surgery (Day of Procedure), Routine 0654 (Given - Provid er: Gerald Naranjo RN) ciprofloxacin (Cipro) 200 mg in dextrose 5% 100 mL infusion 200 mg, Intravenous, EVERY 12 HOURS, First dose on Fri05/24/24 at 0800, Until Discontinued, Administer over 60 Minutes, Indication for (Active or Suspected): Uriniary Tract/Pyelonephritis, Restricted Antibiotic: Please indicate the most appropriate choice: Pre-approved indication (state the indication in comments field) 0757 (Given - Provid er: Swetha Zhou DO) famotidine (Pepcid) (10 mg/mL) injection 40 mg (COMPLETED) 40 mg, Intravenous, ONCE, 1 dose, On Fri05/24/24 at 0745 0739 (New Bag - Prov ider: Swetha Zhou DO) Continuous Medication Order 05/22/2024 05/23/2024 05/24/2024 lactated ringers infusion (CANCELED) 1,000 mL, at 100 mL/hr, Intravenous, CONTINUOUS, Starting on Fri05/24/24 at 0700, Until Fri05/24/24 at 1125, Day of Surgery (Day of Procedure) 0655 (New Bag - Prov ider: Gerald Naranjo RN)0738 (Paused - Provider: Swetha Zhou DO - Comment: Switch to gravity)0739 (New Bag - Provider: Swetha Zhou DO)0857 (Anesthesia Volume Adjustment - Provider: Swetha Zhou DO) PRN Medication Order 05/22/2024 05/23/2024 05/24/2024 iohexoL (Omnipaque) (300 mg/mL) solution (CANCELED) PRN, Starting on Fri05/24/24 at 0908, Until Fri05/24/24 at 1607, Intra-Operative (Intra-Procedure), Routine 0908 (Given - Provid er: Rachel Carrasco MD) No Frequency Medication Order 05/22/2024 05/23/2024 05/24/2024 ciprofloxacin (Cipro) 400 mg/200 mL infusion 1 dose, Starting on Fri05/24/24 at 0740, Until Fri05/24/24 at 1607, Ursula Nolan (ANES): cabinet override 0745 (Due) documented in this encounter Care Teams Deportation Officer Relationship Specialty Start Date End Date Amira Hooks PA [address] [place] [phone] PCP - General Family Medicine 07/25/22 documented as of this encounter
--- OUTSIDE RECORDS SUMMARY | 2024-06-04 20:40 | XMS_ITS | Encounter Summary ---
Author Organization [facility] [place] [address] Care Team Providers Care Stove Mechanic Name Role Phone Amira Hooks Primary Care Provider [phone] Reason for Visit * Auth/Cert (Routine) Specialty Diagnoses / Procedures Referred By Zeyad mishra Referred To Contact Diagnoses Nephrolithiasis right ureteral stone Procedures PRO CYSTO/URETEROSCOPY W/LITHOTRIPSY INC INDWELLING STENT INSERTION CYSTOURETEROSCOPY,DIAGNOSTI C,W/ LITHOTRIPSY INC. INSERTION OF INDWELLING URETERAL STENT (WRVU 8) MODIFIER HOLMIUM LASER Rachel Carrasco MD [facility] [place] [place] [address] [facility] Referral ID Status Reason Start Date Expiration Date Visits Re quested Visits Authorized [id number] 1 1 Encounter Details Date Type Department Care Team (Latest Contact Info) Description 05/24/2024 6:15 AM EDT - 05/24/2024 11:03 AM EDT Hospital Encounter [place] [address] Rachel Carrasco MD [facility] [place] [address] Nephrolithiasis Discharge Disposition: Home Social History Tobacco Use [...] Sign Reading Time Taken Comments Blood Pressure 123/69 05/24/2024 10:15 AM EDT Pulse 78 05/24/2024 10:30 AM EDT Temperature 35.9 ??C (96.6 ??F) 05/24/2024 9:44 AM ED T Respiratory Rate 21 05/24/2024 10:3 0 AM EDT Oxygen Saturation 96% 05/24/2024 10: 30 AM EDT Inhaled Oxygen Concentration - - [...] blood clots The number for questions is [phone] before 5 PM weekdays and [phone] after 5 PM and weekends if questions [...] stent removal in 1 week. Please call [phone] if you do not hear from the [...] Center 06/07/2024 2:00 PM Joan Castro MD [facility] [place] 06/23/2024 10:00 AM Mo Horne MD [facility] documented in this encounter Medications at Time [...] 03/02/2024 ipratropium (ATROVENT) 21 mcg (0.03 %) Hailey, Non-Aerosol INSTILL 2 SPRAYS VIA NOSTRILS AT [...] 2.82) performed by Rachel Carrasco MD at [facility] MAIN OR PRO LAP, CHOLECYSTECTOMY/GRAPH N/A 07/21/2018 LAPAROSCOPIC CHOLECYSTECTOMY WITH CHOLANGIOGRAM (WRVU 11.47) performed by Colt Hewitt MD [facility] MAIN OR PRO UNLISTED LAPAROSCOPIC PX LVR N/A 07/21/2018 LAPAROSCOPIC LIVER BIOPSY (WRVU 16.52) performed by Colt Hewitt MD at [facility] MAIN OR PRO UPPER GI ENDOSCOPY, BIOPSY N/A 12/29/2017 UPPER GASTROINTESTINAL ENDOSCOPY,WITH BIOPSY SINGLE OR MULTIPLE (WRVU 2.49) performed by Yusuf Tucker MD at [facility] ENDOSCOPY PRO UPPER GI ENDOSCOPY, BIOPSY N/A 03/08/2024 EGD WITH BIOPSY (WRVU 2.39) performed by Radu Silveira MD at [facility] ENDOSCOPY PRO UPPER GI ENDOSCOPY, DIAGNOSTIC N/A 12/29/2017 EGD, UPPER GI ENDOSCOPY performed by Yusuf Tucker MD at [facility] ENDOSCOPY TONSILLECTOMY ALLERGIES Allergies Allergen Reactions Adenosine [...] 3 ipratropium (ATROVENT) 21 mcg (0.03 %) Hailey, Non-Aerosol INSTILL 2 SPRAYS VIA NOSTRILS AT [...] Operative Note Patient Name: Rolo Aguilar : [id number] MR#: [id number] Case Date: 05/24/2024 Surgeon: Surgeons and Role: [...] Carrasco MD - 05/24/2024 8:28 AM EDT [facility] Operative Note Patient Name: Rolo Aguilar : [id number] MR#: [id number] Case Date: 05/24/2024 Surgeon: Surgeons and Role: [...] open procedures, cardiopulmonary failure, DVT, PE, Stroke, UT, and other anesthetic risks. With an understanding [...] 2:00 PM EDT Office [place] [address] Joan Castro MD [facility] [place] [address] 06/11/2024 1:03 PM EDT Hospital Encounter [place] [phone] Rachel Carrasco MD [facility] [place] [address] 06/11/2024 1:03 PM EDT - 06/11/2024 1:58 PM EDT Surgery [place] [phone] Rachel Carrasco MD [facility] [place] [address] CYSTO, REMOVAL OF STENT, FOREIGN BODY OR CALCULUS, SIMPLE (WRVU 2.81) 06/23/2024 10:00 AM EDT Office Visit Cardiology at [address] [place] [address] Mo Horne MD [facility] [place] [address] Scheduled Procedures Name Priority Associated Diagnoses Date/Ti [...] Nephrolithiasis Cysto/Ureteroscopy W/Lithotripsy Inc Indwelling Stent Insertion (18072) Yes 05/24/2024 7:38 AM EDT Nephrolithiasis POCT [...] developed and its performance characteristics ?determined by [facility] in a manner consistent with CLIA ?requirements. This test has not been cleared or approved by ?the U.S. Food and Drug Administration. ?Test Performed by: ?[facility] ?[address] [place] [id number] ?Relief Worker: Pippa Traore Ph.D.; CLIA# [id number] [facility] Calculus Other / Unknown 05/24/2024 9 :23 AM EDT 05/24/2024 3:58 PM EDT Narrative Resulting Agency Comment Spec In Lab Rachel Carrasco MD BODY FLUIDS AND STOO LS ORDERABLES Performing Organization Address [facility] Co de Phone Number [facility] [place] [address] * Specimen to Pathology (05/24/2024 9:23 AM EDT) AP Specimen 05/24/2024 9:23 AM EDT 05/24/2024 9:23 AM EDT Narrative [facility] - 05/24/2024 9:23 AM EDT Specimen requisition ordered. ??Separate Pathology report to follow Rachel Carrasco MD PATHOLOGY/CYTOLOGY O RDERABLES Performing Organization Address [facility] Co de Phone Number [facility] [place] [address] * POCT Glucose (05/24/2024 6:44 AM EDT) POC Glucose 116 65 - 199 mg/dL [facility] Comment: Supplemental ranges: <140 mg/dL before meals <180 mg/dL all other times of the day Blood 05/24/2024 6:44 AM EDT 05/24/2024 6:44 AM EDT Rachel Carrasco MD POINT OF CARE TEST O RDERABLES [facility] [place] [address] * Scan Doc: Implantable Devices (05/24/2024 12:00 AM EDT) Narrative 05/24/2024 12:00 AM EDT Ordered by an unspecified provider. Scanning Provider MEDIA MGR SCAN EXT O RDR/RSLT documented in this encounter Visit Diagnoses Diagnosis Nephrolithiasis Calculus of kidney documented in this [...] Given 05/24/2024 7:57 AM EDT 400 mg lactated ringers infusion 1,000 mL, at 100 [...] (Due) documented in this encounter Care Teams Stove Mechanic Relationship Specialty Start Date End Date Amira Hooks PA [address] [place] [id number] PCP - General Family Medicine 07/25/22 documented as of this encounter
--- OUTSIDE RECORDS SUMMARY | 2024-06-04 20:40 | XMS_ITS | Encounter Summary ---
Author Organization [facility] [place] [address] Care Team Providers Care Manager Shell Name Role Phone Amira Hooks Primary Care Provider Encounter Details Date Type Department Care Team (Latest Contact Info) Description 06/01/2024 Travel Social History Tobacco Use Types Packs/Day Years Used Date Smoking Tobacco: Former Cigarettes 1.5 15 1 - 2009 Smokeless Tobacco: Former Chew Quit: 2013 Alcohol Use Standard Drinks/Week Comments No 0 (1 standard drink = 0.6 oz pur e alcohol) [facility] In[facility] Questions Answer Date Recorded Does Anyone [...] on file documented as of this encounter Plan of Treatment Upcoming Encounters Date Type Department Care Team (Latest Contact Info) Description 06/07/2024 2:00 PM EDT Office [place] [address] Joan Castro MD [facility] [place] [address] 06/11/2024 1:03 PM EDT Hospital Encounter [place] [phone] Rachel Carrasco MD [facility] [place] [address] 06/11/2024 1:03 PM EDT - 06/11/2024 1:58 PM EDT Surgery [place] [phone] Rachel Carrasco MD [facility] [place] [address] CYSTO, REMOVAL OF STENT, FOREIGN BODY OR CALCULUS, SIMPLE (WRVU 2.81) 06/23/2024 10:00 AM EDT Office Visit Cardiology at [address] [phone] Mo Horne MD [facility] [place] [address] Scheduled Procedures Name Priority Associated Diagnoses Date/Ti me CYSTO, REMOVAL OF STENT, FOR EIGN BODY OR CALCULUS, SIMPLE (WRVU 2.81) NEPHROLITHIASIS 06/11/2024 1:03 PM EDT documented as of this encounter Visit Diagnoses Not on filedocumented in this encounter Care Teams Manager Shell Relationship Specialty Start Date End Date Amira Hooks PA [address] [place] [phone] PCP - General Family Medicine 07/25/22 documented as of this encounter
--- OUTSIDE RECORDS SUMMARY | 2024-06-04 20:40 | XMS_ITS | Encounter Summary ---
Author Organization [facility] Address [facility] [place] [address] Care Team Providers Care Chief Concierge Name Role Phone Amira Hooks Primary Care Provider Encounter Details Date Type Department Care Team (Late st Contact Info) Description 05/03/2024 [place] [address] Abelino Lazar MD [facility] [place] [address] Social History Tobacco Use Types Packs/Day Years [...] 2:00 PM EDT Office [place] [phone] Joan Castro MD [facility] [place] [address] 06/11/2024 1:03 PM EDT Hospital Encounter Main [place] [phone] Rachel Carrasco MD [facility] [place] [address] 06/11/2024 1:03 PM EDT - 06/11/2024 1:58 PM EDT Surgery Main Operating Room [place] [phone] Rachel Carrasco MD [facility] [place] [address] CYSTO, REMOVAL OF STENT, FOREIGN BODY OR CALCULUS, SIMPLE (WRVU 2.81) 06/23/2024 10:00 AM EDT Office Visit Cardiology at [address] [address] Mo Horne MD [facility] [place] [address] Scheduled Procedures Name Priority Associated Diagnoses Date/Ti me CYSTO, REMOVAL OF STENT, FOR EIGN BODY OR CALCULUS, SIMPLE (WRVU 2.81) NEPHROLITHIASIS 06/11/2024 1:03 PM EDT documented as of this encounter Visit Diagnoses Not on filedocumented in this encounter Care Teams Chief Concierge Relationship Specialty Start Date End Date Amira Hooks PA [address] [place] [phone] PCP - General Family Medicine 07/25/22 documented as of this encounter
--- OUTSIDE RECORDS SUMMARY | 2024-06-04 20:40 | XMS_ITS | Encounter Summary ---
[place] [address] Care Team Providers Care Cabin Worker Name Role Phone Amira Hooks Primary Care Provider Encounter Details Date Type Department Care Team (Late st Contact Info) Description 05/17/2024 Telephone [place] [phone] Xenia Mcrae, RN Social History Tobacco Use Types Packs/Day Years Used Date Smoking Tobacco: Former Cigarettes 1.5 15 1 - 2009 Smokeless Tobacco: Former Chew Quit: 2013 Alcohol Use Standard Drinks/Week Comments No 0 (1 standard drink = 0.6 oz pur e alcohol) [facility] Inpatient Questions Answer Date Recorded Does Anyone [...] Progress Notes * Xenia Mcrae RN - 05/17/2024 1:53 PM EDT Order faxed to number provided below. documented in this encounter Miscellaneous Notes * Telephone Encounter - Xenia Mcrae RN - 05/17/2024 1:34 PM EDT Copied from CRM #[id number]. Topic: Specialty Dept CRMs - Generic Call >> May 17, 2024 1:20 PM Maria Rodriguez wrote: Specialist: Rachel Carrasco MD Relationship (if other than patient-full name): Keily from [facility] Reason for Call: Keily states patient is at lab to have Urine culture Clean Catch Urine but ordershave not been received. Please fax orders to [phone] or call Keily at [phone]. documented in this encounter Plan of Treatment Upcoming Encounters Date Type Department Care Team (Latest Contact Info) Description 06/07/2024 2:00 PM EDT Office Visit Gastroenterology at [place] [phone] Joan Castro MD [facility] [place] [address] 06/11/2024 1:03 PM EDT Hospital Encounter Main Operating Room [place] [phone] Rachel Carrasco MD [facility] [place] [place] [address] 06/11/2024 1:03 PM EDT - 06/11/2024 1:58 PM EDT Surgery Main Operating Room [place] [phone] Rachel Carrasco MD [facility] [place] [address] CYSTO, REMOVAL OF STENT, FOREIGN BODY OR CALCULUS, SIMPLE (WRVU 2.81) 06/23/2024 10:00 AM EDT Office Visit Cardiology at [address] [phone] Mo Horne MD [facility] [place] [address] Scheduled Procedures Name Priority Associated Diagnoses Date/Ti me CYSTO, REMOVAL OF STENT, FOR EIGN BODY OR CALCULUS, SIMPLE (WRVU 2.81) NEPHROLITHIASIS 06/11/2024 1:03 PM EDT documented as of this encounter Visit Diagnoses Not on filedocumented in this encounter Care Teams Cabin Worker Relationship Specialty Start Date End Date Amira Hooks PA [address] [place] [address] PCP - General Family Medicine 07/25/22 documented as of this encounter
--- OUTSIDE RECORDS SUMMARY | 2024-06-04 20:40 | XMS_ITS | Encounter Summary ---
Author Organization [facility] Address [facility] [place] [address] Care Team Providers Care Licensed Massage Practitioner Name Role Phone Amira Hooks Primary Care Provider [phone] Encounter Details Date Type Department Care Team (Late st Contact Info) Description 04/09/2024 [place] [address] Abelino Lazar MD [facility] [place] [address] Nephrolithiasis Social History Tobacco Use Types Packs/Day Years Used Date Smoking Tobacco: Former Cigarettes 1.5 15 1 995 - 2009 Smokeless Tobacco: Former Chew Quit: 2014 Alcohol Use Standard Drinks/Week Comments No 0 [...] 2:00 PM EDT Office Visit [place] [phone] Joan Castro MD [facility] [place] [address] 06/11/2024 1:03 PM EDT Hospital Encounter [place] [phone] Rachel Carrasco MD [facility] [place] [address] 06/11/2024 1:03 PM EDT - 06/11/2024 1:58 PM EDT Surgery [place] [phone] Rachel Carrasco MD [facility] [place] [address] CYSTO, REMOVAL OF STENT, FOREIGN BODY OR CALCULUS, SIMPLE (WRVU 2.81) 06/23/2024 10:00 AM EDT Office Visit Cardiology at [address] [address] Mo Horne MD [facility] [place] [address] Scheduled Procedures Name Priority Associated Diagnoses Date/Ti me CYSTO, REMOVAL OF STENT, FOR EIGN BODY OR CALCULUS, SIMPLE (WRVU 2.81) NEPHROLITHIASIS 06/11/2024 1:03 PM EDT documented as of this encounter Visit Diagnoses Diagnosis Nephrolithiasis Calculus of kidney documented in this encounter Care Teams Licensed Massage Practitioner Relationship Specialty Start Date End Date Amira Hooks PA [address] [place] [address] PCP - General Family Medicine 07/25/22 documented as of this encounter
--- OUTSIDE RECORDS SUMMARY | 2024-06-04 20:40 | XMS_ITS | Encounter Summary ---
[place] [address] Care Team Providers Care Cloth Examiner Machine Name Role Phone Amira Hooks Primary Care Provider Encounter Details Date Type Department Care Team (Late st Contact Info) Description 04/14/2024 [place] [phone] Xenia Mcrae, RN Social History Tobacco Use Types Packs/Day Years Used Date Smoking Tobacco: Former Cigarettes 1.5 15 1 - 2009 Smokeless Tobacco: Former Chew Quit: 2013 Alcohol Use Standard Drinks/Week Comments No 0 (1 standard drink = 0.6 oz pur e alcohol) [facility] Inpatient Questions Answer Date Recorded [...] Progress Notes * Xenia Mcrae RN - 04/14/2024 2:37 PM EDT Reason for call: Hematuria Background: Patient is s/p URS and stent placement on 04/09/24. Disposition: Talked to patient's Autumn and patient, reviewed discharge instructions regarding blood in urinewith a ureteral stent in place. Patient has hematuria in the AM that clears throughout the day withhydration, no blood clots or difficulty with urination. Patients verbalizes understanding and will provide support and encouragement. Patient reassured and will call back with any further questions or concerns. documented in this encounter Miscellaneous Notes * Telephone Encounter - Xenia Mcrae RN - 04/14/2024 2:07 PM EDT Copied from [facility] #[id number]. Topic: Specialty Dept CRMs - Triage >> Apr 14, 2024 12:07 PM Dillan K wrote: Triage Message Specialist: Rachel Carrasco Relationship (if other than patient-full name): Autumn, Symptom: Urinating blood Has patient experienced symptom before NA If patient has experienced symptom before, when was the last time this occurred Currently Is patient currently having symptom Yes When did symptom begin Friday Additional Comments: Patient's called stating a stent was placed on Friday for kidney stones. Patient is urinating blood, quite a bit, no clots, and wonders if this is normal. Please call to advise as patient is very anxious and would like to speak to a nurse. documented in this encounter Plan of Treatment Upcoming Encounters Date Type Department Care Team (Latest Contact Info) Description 06/07/2024 2:00 PM EDT Office [place] [address] Joan Castro MD [facility] [place] [address] 06/11/2024 1:03 PM EDT Hospital Encounter [place] [address] Rachel Carrasco MD [facility] [place] [address] 06/11/2024 1:03 PM EDT - 06/11/2024 1:58 PM EDT Surgery Main Operating Room [facility] [place] [address] Rachel Carrasco MD [facility] [place] [address] CYSTO, REMOVAL OF STENT, FOREIGN BODY OR CALCULUS, SIMPLE (WRVU 2.81) 06/23/2024 10:00 AM EDT Office Visit Cardiology at [address] [phone] Mo Horne MD [facility] [place] [address] Scheduled Procedures Name Priority Associated Diagnoses Date/Ti me CYSTO, REMOVAL OF STENT, FOR EIGN BODY OR CALCULUS, SIMPLE (WRVU 2.81) NEPHROLITHIASIS 06/11/2024 1:03 PM EDT documented as of this encounter Visit Diagnoses Not on filedocumented in this encounter Care Teams Cloth Examiner Machine Relationship Specialty Start Date End Date Amira Hooks PA [address] [place] [address] PCP - General Family Medicine 07/25/22 documented as of this encounter
--- OUTSIDE RECORDS SUMMARY | 2024-06-04 20:40 | XMS_ITS | Encounter Summary ---
Author Organization [facility] Address [address] [place] [address] Care Team Providers Care Digital Account Executive Name Role Phone Unavailable Primary Care Provider Unavailabl e Encounter Details Date Type Department Care Team (Late st Contact Info) Description 12/16/2020 Lab Requisition [facility] Pathology & Laboratory Medicine - [facility] [address] [place] [address] Outr Resulting Lab, Provider Social History Tobacco Use Types Packs/Day Years Used Date Smoking Tobacco: Never Assessed Interpersonal Safety Answer Date Record ed Physically Hurt Never 10/03/2020 Verbally Threaten Not on file 10/03/2020 Sex and Gender Information Value Date Recorded Sex Assigned at Not on file Gender Identity Not on file Sexual Orientation Not on file documented as of this encounter Plan of Treatment Not on file documented as of this encounter Procedures Procedure Name Priority Date/Time Associated Diagnosis Comments ZZCOVID-19 TEST [facility] PCR Today 12/16/2020 1:30 EST COVID-19 TESTING Routine 12/16/2020 1:30 EST documented in this encounter Results * COVID-19 TEST [facility] PCR (12/16/2020 1:30 EST) Swab ENTIRE NASOPHARYNX / Unknown 12/16/2020 1:30 EST 12/16/2020 22:23 EST Provider Outr Resulting Lab MICROBIOLOGY - GENERAL ORDERABLES [facility] [address] [place] [address] * COVID-19 TESTING (12/16/2020 1:30 EST) COVID-19 rt-PCR Result Negative Negative 12/18/2020 16:18 EST [facility] Comment: This test has not been FDA cleared or approved. This test has been authorized by FDA under an EUA for use by authorized laboratories. This test has been authorized only for detection of nucleic acid from 2019-nCoV, not for any other viruses or pathogens. This test is only authorized for the duration of the declaration that circumstances exist justifying the authorization of emergency use of in vitro diagnostic tests for detection and/or diagnosis of 2019-nCoV under section 564(b)(1) of Act, 21 U.S.C ?? 360bbb-3(b) (1), unless the authorization is terminated or revoked sooner. Negative results do not preclude 2019-nCoV infection and should not be used as the sole basis for treatment or other patient management decisions. Negative results must be combined with clinical observations, patient history, and epidemiological information. This test was developed and its performance characteristics determined by [facility]. It has not been cleared or approved by the US Food and Drug Administration. FDA does not require this test to go through premarket FDA review. This test is used for clinical purposes. It should not be regarded as investigational or for research. This laboratory is certified under the Clinical Laboratory Improvement Amendments (CLIA) as qualified to perform high complexity clinical laboratory testing. This test is based on the CDC COVID-19 Emergency Use Authorization (EUA) assay, with minor modification as defined by the FDA Performed on the CRAiLARo 7 Flex RT-PCR System. Performing Lab [facility] 12/18/2020 16:18 EST [facility] Swab 12/16/2020 1:30 EST 12/16/2020 22:23 EST Provider Outr Resulting Lab MICROBIOLOGY - GENERAL ORDERABLES [facility] [address] [place] [address] documented in this encounter Visit Diagnoses Not on filedocumented in this encounter
--- OUTSIDE RECORDS SUMMARY | 2024-06-04 20:40 | XMS_ITS | Encounter Summary ---
[facility] Organization [facility] Address [facility] [place] [address] Care Team Providers Care Configuration Specialist Name Role Phone Amira Hooks Primary Care Provider Encounter Details Date Type Department Care Team (Late st Contact Info) Description 04/27/2024 [place] [address] Nathen Yanez MD [facility] [place] [address] Social History Tobacco Use Types Packs/Day Years [...] 2:00 PM EDT Office [place] [phone] Joan Castro MD [facility] [address] 06/11/2024 1:03 PM EDT Hospital Encounter Main Operating Room [place] [phone] Rachel Carrasco MD [facility] [place] [address] 06/11/2024 1:03 PM EDT - 06/11/2024 1:58 PM EDT Surgery [place] [phone] Rachel Carrasco MD [facility] [place] [address] CYSTO, REMOVAL OF STENT, FOREIGN BODY OR CALCULUS, SIMPLE (WRVU 2.81) 06/23/2024 10:00 AM EDT Office Visit Cardiology at [address] [address] Mo Horne MD [facility] [place] [address] Scheduled Procedures Name Priority Associated Diagnoses Date/Ti me CYSTO, REMOVAL OF STENT, FOR EIGN BODY OR CALCULUS, SIMPLE (WRVU 2.81) NEPHROLITHIASIS 06/11/2024 1:03 PM EDT documented as of this encounter Visit Diagnoses Not on filedocumented in this encounter Care Teams Configuration Specialist Relationship Specialty Start Date End Date Amira Hooks PA [address] [address] PCP - General Family Medicine 07/25/22 documented as of this encounter
--- OUTSIDE RECORDS SUMMARY | 2024-06-04 20:40 | XMS_ITS | Encounter Summary ---
Author Organization [facility] Address [facility] [place] [address] Care Team Providers Care Industrial Chemist Name Role Phone Amira Hooks Primary Care Provider [phone] Encounter Details Date Type Department Care Team (Late st Contact Info) Description 04/09/2024 [place] [phone] Carlos Redd MD [facility] [place] [address] Social History Tobacco Use Types Packs/Day Years [...] as of this encounter Progress Notes * Carlos Redd MD - 04/09/2024 9:08 PM EDT Returned patient phone call. Spoke with the patient and his . The patient is having significantflank pain and burning with urination following cystoscopy and ureteral stent placement. Denies fever or chills. Sometimes feels nausea with pain. Discussed with patient that if his pain is intractable and they do not feel comfortable or able to treated at home, it would be reasonable to go to the nearest emergency department for pain control. There should be no interventions required with regards to the stent that is in place. Most likely would need hydration and pain control. I discussed more urgent/emergent return precautions including onset of fever or intractable nausea and vomiting. I offered to prescribe stronger pain medications (oxycodone) however would not likely be able to burr picker until tomorrow. Patient does have 2 oxycodone left over from last emergency department visit (10 mg tablets). Discussed that he can try taking 1 of these every 4 hours for pain. The patient and his are opting to go to [facility] emergency department for pain control overnight. We are available if any questions or concerns. documented in this encounter Plan of Treatment Upcoming Encounters Date Type Department Care Team (Latest Contact Info) Description 06/07/2024 2:00 PM EDT Office [place] [address] Joan Castro MD [facility] [place] [address] 06/11/2024 1:03 PM EDT Hospital Encounter [place] [phone] Rachel Carrasco MD [facility] [place] [address] 06/11/2024 1:03 PM EDT - 06/11/2024 1:58 PM EDT Surgery [place] [address] Rachel Carrasco MD [facility] [place] [address] CYSTO, REMOVAL OF STENT, FOREIGN BODY OR CALCULUS, SIMPLE (WRVU 2.81) 06/23/2024 10:00 AM EDT Office Visit Cardiology at [address] [place] [address] Mo Horne MD [facility] [place] [address] Scheduled Procedures Name Priority Associated Diagnoses Date/Ti me CYSTO, REMOVAL OF STENT, FOR EIGN BODY OR CALCULUS, SIMPLE (WRVU 2.81) NEPHROLITHIASIS 06/11/2024 1:03 PM EDT documented as of this encounter Visit Diagnoses Not on filedocumented in this encounter Care Teams Industrial Chemist Relationship Specialty Start Date End Date Amira Hooks PA [address] [place] [address] PCP - General Family Medicine 07/25/22 documented as of this encounter
--- OUTSIDE RECORDS SUMMARY | 2024-06-04 20:40 | XMS_ITS | Clinical Summary ---
Author Organization [facility] Address [address] [place] [address] Care Team Providers Care Swedish Masseuse Name Role Phone Unavailable Primary Care Provider Unavailabl e Social History Tobacco Use Types Packs/Day Years Used Date Smoking Tobacco: Never Assessed Interpersonal Safety Answer Date Record ed Physically Hurt Never 10/03/2020 Verbally Threaten Not on file 10/03/2020 Sex and Gender Information Value Date Recorded Sex Assigned at Not on file Gender Identity Not on file Sexual Orientation Not on file Plan of Treatment Health Maintenance Due Date Last Done Comments Hepatitis C Screen 1970 Hepatitis B Vaccine (1 of 3 - 19+ 3-dose series) 12/17 COVID-19 Vaccine (2022- season) 2023
--- OUTSIDE RECORDS SUMMARY | 2024-06-04 20:40 | XMS_ITS | Encounter Summary ---
Author Organization [facility] Address [facility] [address] Care Team Providers Care Statistical Reporting Analyst Name Role Phone Amira Hooks Primary Care Provider Encounter Details Date Type Department Care Team (Late st Contact Info) Description 04/10/2024 [place] [phone] Carlos Redd MD [facility] [place] [address] Social History Tobacco Use Types Packs/Day Years [...] encounter Miscellaneous Notes * Telephone Encounter - Carlos Redd MD - 04/10/2024 8:06 AM EDT Patient calling back, went to ED in [facility] overnight for pain control - had temporary reliefand discharged home. They were not comfortable prescribing opioid pain medications to the patient. He had return of pain early this morning - took a 10mg oxycodone he had from previous encounters andwas able to get about 3 hours sleep. Flank pain is back now - will send him a few days worth of oxycodone to try to get him out of recovery period from surgery over weekend. documented in this encounter Plan of Treatment Upcoming Encounters Date Type Department Care Team (Latest Contact Info) Description 06/07/2024 2:00 PM EDT Office [place] [address] Joan Castro MD [facility] [place] [address] 06/11/2024 1:03 PM EDT Hospital Encounter [place] [phone] Rachel Carrasco MD [facility] [place] [address] 06/11/2024 1:03 PM EDT - 06/11/2024 1:58 PM EDT Surgery [place] [address] Rachel Carrasco MD [facility] [place] [address] CYSTO, REMOVAL OF STENT, FOREIGN BODY OR CALCULUS, SIMPLE (WRVU 2.81) 06/23/2024 10:00 AM EDT Office Visit Cardiology at [address] [place] [phone] Mo Horne MD [facility] [place] [address] Scheduled Procedures Name Priority Associated Diagnoses Date/Ti me CYSTO, REMOVAL OF STENT, FOR EIGN BODY OR CALCULUS, SIMPLE (WRVU 2.81) NEPHROLITHIASIS 06/11/2024 1:03 PM EDT documented as of this encounter Visit Diagnoses Not on filedocumented in this encounter Care Teams Statistical Reporting Analyst Relationship Specialty Start Date End Date Amira Hooks PA [address] [place] [id number] PCP - General Family Medicine 07/25/22 documented as of this encounter
--- OUTSIDE RECORDS SUMMARY | 2024-06-04 20:40 | XMS_ITS | Encounter Summary ---
[place] [address] Care Team Providers Care Folder Operator Name Role Phone Amira Hooks Primary Care Provider [phone] Encounter Details Date Type Department Care Team (Late st Contact Info) Description 04/12/2024 [place] [phone] Xenia Mcrae, RN Social History Tobacco Use Types Packs/Day Years Used Date Smoking Tobacco: Former Cigarettes 1.5 15 1 - 2009 Smokeless Tobacco: Former Chew Quit: 2013 Alcohol Use Standard Drinks/Week Comments No 0 (1 standard drink = 0.6 oz pur e alcohol) [facility] Inpatient Questions Answer Date Recorded Does Anyone [...] Progress Notes * Xenia Mcrae RN - 04/12/2024 2:19 PM EDT Reason for call: Hematuria Background: Patient is s/p URS and stent placement on 04/09/24. Disposition: Call returned to patient. Patient reports intermittent light hematuria. Reviewed discharge instructions regarding blood in urine with a ureteral stent in place, reassured patient that this may vary depending on his activity level and fluid intake. Patient reports that heis urinating well and is not passing large blood clots. His Urine was light pink at the start of his stream this AM then cleared during urination. Encouraged hydration and rest. Patient will call back if he starts passing large clots, has difficulty with urination or with any further questions or concerns. documented in this encounter Miscellaneous Notes * Telephone Encounter - Xenia Mcrae RN - 04/12/2024 2:19 PM EDT Copied from [facility] #[id number]. Topic: Specialty Dept CRMs - Triage >> Apr 12, 2024 12:58 PM Lorna Shipley wrote: Triage Message Specialist: Danilo Relationship (if other than patient-full name): Patient Symptom: blood in urine Has patient experienced symptom before no If patient has experienced symptom before, when was the last time this occurred NA Is patient currently having symptom yes When did symptom begin unknown Additional Comments: Patient calling stating that he is having blood in his urine and he would liketo know if this is normal while having a stent in. documented in this encounter Plan of Treatment Upcoming Encounters Date Type Department Care Team (Latest Contact Info) Description 06/07/2024 2:00 PM EDT Office [place] [address] Joan Castro MD [facility] [place] [place] [address] 06/11/2024 1:03 PM EDT Hospital Encounter [place] [phone] Rachel Carrasco MD [facility] [place] [address] 06/11/2024 1:03 PM EDT - 06/11/2024 1:58 PM EDT Surgery [place] [address] Rachel Carrasco MD [facility] [place] [address] CYSTO, REMOVAL OF STENT, FOREIGN BODY OR CALCULUS, SIMPLE (WRVU 2.81) 06/23/2024 10:00 AM EDT Office Visit Cardiology at [address] [address] Mo Horne MD [facility] [place] [address] Scheduled Procedures Name Priority Associated Diagnoses Date/Ti me CYSTO, REMOVAL OF STENT, FOR EIGN BODY OR CALCULUS, SIMPLE (WRVU 2.81) NEPHROLITHIASIS 06/11/2024 1:03 PM EDT documented as of this encounter Visit Diagnoses Not on filedocumented in this encounter Care Teams Folder Operator Relationship Specialty Start Date End Date Amira Hooks PA [address] [place] [id number] PCP - General Family Medicine 07/25/22 documented as of this encounter
--- OUTSIDE RECORDS SUMMARY | 2024-06-04 20:40 | XMS_ITS | Encounter Summary ---
Author Organization [facility] Address [address] [place] [address] Care Team Providers Care Strike Warfare/Missile Systems Officer Name Role Phone Unavailable Primary Care Provider Unavailabl e Encounter Details Date Type Department Care Team (Late st Contact Info) Description 12/14/2020 Lab Requisition [facility] Pathology & Laboratory Medicine - [facility] [address] [place] [address] Outr Resulting Lab, Provider Social History Tobacco [...] Priority Date/Time Associated Diagnosis Comments ZZCOVID-19 TEST [facility] PCR Today 12/14/2020 7:52 EST COVID-19 TESTING Routine 12/14/2020 7:52 EST documented in this encounter Results * COVID-19 TEST [facility] PCR (12/14/2020 7:52 EST) Swab ENTIRE NASOPHARYNX / Unknown 12/14/2020 7:52 EST 12/14/2020 17:47 EST Provider Outr Resulting Lab MICROBIOLOGY - GENERAL ORDERABLES [facility] [address] [place] [address] * COVID-19 TESTING (12/14/2020 7:52 EST) COVID-19 rt-PCR Result Negative Negative 12/15/2020 15:[address] [facility] Comment: This test has [...] developed and its performance characteristics determined by [facility]. It has not been cleared or approved [...] defined by the FDA Performed on the Structured Polymerso 7 Flex RT-PCR System. Performing Lab [facility] Lab 12/15/2020 15:[address] [facility] Swab 12/14/2020 7:52 EST 12/14/2020 17:47 EST Provider Outr Resulting Lab MICROBIOLOGY - GENERAL ORDERABLES [facility] [address] [place] [address] documented in this encounter Visit Diagnoses Not on filedocumented in this encounter
--- OUTSIDE RECORDS SUMMARY | 2024-06-04 20:40 | XMS_ITS | Encounter Summary ---
Author Organization [facility] Address [facility] [place] [address] Care Team Providers Care Spool Carrier Name Role Phone Amira Hooks Primary Care Provider [phone] Encounter Details Date Type Department Care Team (Late st Contact Info) Description 05/21/2024 [place] [address] Jose Juan Anton MD [facility] [place] [address] Social History Tobacco Use Types Packs/Day Years [...] encounter Miscellaneous Notes * Telephone Encounter - Jose Juan Anton MD - 05/21/2024 1:20 PM EDT Called Rolo back and clarified why he is taking the antibiotics. He is going to pick them up prior today and start taking them. Jose Juan Anton MD 05/21/2024 * Telephone Encounter - Jose Juan Anton MD - 05/21/2024 9:10 AM EDT Urology Patient Phone Call - Urine Culture Patient: Rolo Aguilar Date: 05/21/2024 Time: 9:10 AM I called Rolo Aguilar with regards to his urine culture results. His urine culture results are as follows: MMF Treatment: Nitrofurantoin (Macrobid or Macrodantin) 5d Message on answering machine. Jose Juan Anton MD Urology Resident documented in this encounter Plan of Treatment Upcoming Encounters Date Type Department Care Team (Latest Contact Info) Description 06/07/2024 2:00 PM EDT Office Visit Gastroenterology at [place] [phone] Joan Castro MD [facility] [place] [address] 06/11/2024 1:03 PM EDT Hospital Encounter [place] [phone] Rachel Carrasco MD [facility] [place] [address] 06/11/2024 1:03 PM EDT - 06/11/2024 1:58 PM EDT Surgery Main Operating Room [place] [phone] Rachel Carrasco MD [facility] [address] CYSTO, REMOVAL OF STENT, FOREIGN BODY OR CALCULUS, SIMPLE (WRVU 2.81) 06/23/2024 10:00 AM EDT Office Visit Cardiology at [address] [place] [address] Mo Horne MD [facility] [place] [address] Scheduled Procedures Name Priority Associated Diagnoses Date/Ti me CYSTO, REMOVAL OF STENT, FOR EIGN BODY OR CALCULUS, SIMPLE (WRVU 2.81) NEPHROLITHIASIS 06/11/2024 1:03 PM EDT documented as of this encounter Visit Diagnoses Not on filedocumented in this encounter Care Teams Spool Carrier Relationship Specialty Start Date End Date Amira Hooks PA [address] [place] [id number] PCP - General Family Medicine 07/25/22 documented as of this encounter
--- OUTSIDE RECORDS SUMMARY | 2024-06-04 20:40 | XMS_ITS | Encounter Summary ---
Author Organization [facility] Address [address] [place] [address] Care Team Providers Care Harness Maker Name Role Phone Unavailable Primary Care Provider Unavailabl e Encounter Details Date Type Department Care Team (Late st Contact Info) Description 04/16/2021 Lab Requisition [facility] Pathology & Laboratory Medicine - [facility] [address] [place] [address] Outr Resulting Lab, Provider Social History Tobacco [...] Priority Date/Time Associated Diagnosis Comments ZZCOVID-19 TEST [facility] PCR Today 04/16/2021 11:00 EDT COVID-19 TESTING Routine 04/16/2021 11:0 0 EDT documented in this encounter Results * COVID-19 TEST [facility] PCR (04/16/2021 11:00 EDT) Swab ENTIRE NASOPHARYNX / Unknown 04/16/2021 11:00 EDT 04/16/2021 20:37 EDT Provider Outr Resulting Lab MICROBIOLOGY - GENERAL ORDERABLES [facility] [address] [place] [address] * COVID-19 TESTING (04/16/2021 11:00 EDT) COVID-19 rt-PCR Result Negative Negative 04/17/2021 1:26 EDT [facility] Comment: This test has [...] clinical observations, patient history, and epidemiological information. Performed on the EnviroGeneher Fusion instrument Performing Lab [facility] Lab 04/17/2021 1:26 EDT [facility] Swab 04/16/2021 11:0 0 EDT 04/16/2021 20:37 EDT Provider Outr Resulting Lab MICROBIOLOGY - GENERAL ORDERABLES [facility] [address] [place] [address] documented in this encounter Visit Diagnoses Not on filedocumented in this encounter
--- OUTSIDE RECORDS SUMMARY | 2024-06-04 20:40 | XMS_ITS | Encounter Summary ---
[place] [address] Care Team Providers Care Supervisor Concrete Block Plant Name Role Phone Amira Hooks Primary Care Provider Encounter Details Date Type Department Care Team (Late st Contact Info) Description 04/27/2024 [place] [address] Michelle Reed, RN Social History Tobacco Use [...] Telephone Encounter - Michelle Reed RN - 04/27/2024 3:10 PM EDT Copied from [facility] #[id number]. Topic: Specialty Dept CRMs - Triage >> Apr 27, 2024 2:37 PM Rayo Bhagat wrote: Triage Message Specialist: Danilo Relationship (if other than patient-full name): Autumn, spouse Symptom: Itching, possible yeast infection Has patient experienced symptom before If patient has experienced symptom before, when was the last time this occurred Is patient currently having symptom yes When did symptom begin 4 days ago Additional Comments: Patient's spouse Autumn called in looking to see if Dr. Carrasco could call in medication - stated that the patient started having itching in the groin area after being on antibiotics, believes he may have a yeast infection. documented in this encounter Plan of Treatment Upcoming Encounters Date Type Department Care Team (Latest Contact Info) Description 06/07/2024 2:00 PM EDT Office Visit Gastroenterology at [place] [phone] Joan Castro MD [facility] [place] [address] 06/11/2024 1:03 PM EDT Hospital Encounter Main Operating Room [place] [phone] Rachel Carrasco MD [facility] [place] [address] 06/11/2024 1:03 PM EDT - 06/11/2024 1:58 PM EDT Surgery Main Operating Room [place] [phone] Rachel Carrasco MD [facility] [place] [address] CYSTO, REMOVAL OF STENT, FOREIGN BODY OR CALCULUS, SIMPLE (WRVU 2.81) 06/23/2024 10:00 AM EDT Office Visit Cardiology at [address] [place] [address] Mo Horne MD [facility] [place] [address] Scheduled Procedures Name Priority Associated Diagnoses Date/Ti me CYSTO, REMOVAL OF STENT, FOR EIGN BODY OR CALCULUS, SIMPLE (WRVU 2.81) NEPHROLITHIASIS 06/11/2024 1:03 PM EDT documented as of this encounter Visit Diagnoses Not on filedocumented in this encounter Care Teams Supervisor Concrete Block Plant Relationship Specialty Start Date End Date Amira Hooks PA [address] [place] [id number] PCP - General Family Medicine 07/25/22 documented as of this encounter
--- OUTSIDE RECORDS SUMMARY | 2024-06-04 20:40 | XMS_ITS | Encounter Summary ---
Author Organization Formerly [facility] Address [facility] [place] [address] Care Team Providers Care Imcu Nurse Name Role Phone Amira Hooks Primary Care Provider Encounter Details Date Type Department Care Team (Late st Contact Info) Description 06/04/2024 [place] [address] Jose Juan Anton MD [facility] [place] [address] Social History Tobacco Use Types Packs/Day Years [...] Encounter - Jose Juan Anton MD - 06/04/2024 2:36 PM EDT Urology Patient Phone Call Patient: Rolo Aguilar Date: 06/04/2024 Time: 2:39 PM Question/Concern Topic: Post Operative Pain Summary of Conversation: Rolo Aguilar called the resident on-call in regards to stent pain. - Taking Tylenol. - Staying hydrated. - Tried pyridium as well. - Going to his PCP to be seen. Jose Juan Anton MD Urology Resident documented in this encounter Plan of Treatment Upcoming Encounters Date Type Department Care Team (Latest Contact Info) Description 06/07/2024 2:00 PM EDT Office [place] [address] Joan Castro MD [facility] [place] [address] 06/11/2024 1:03 PM EDT Hospital Encounter [place] [phone] Rachel Carrasco MD [facility] [place] [address] 06/11/2024 1:03 PM EDT - 06/11/2024 1:58 PM EDT Surgery [place] [phone] Rachel Carrasco MD [facility] [place] [address] CYSTO, REMOVAL OF STENT, FOREIGN BODY OR CALCULUS, SIMPLE (WRVU 2.81) 06/23/2024 10:00 AM EDT Office Visit Cardiology at [address] [address] Mo Horne MD [facility] [place] [address] Scheduled Procedures Name Priority Associated Diagnoses Date/Ti me CYSTO, REMOVAL OF STENT, FOR EIGN BODY OR CALCULUS, SIMPLE (WRVU 2.81) NEPHROLITHIASIS 06/11/2024 1:03 PM EDT documented as of this encounter Visit Diagnoses Not on filedocumented in this encounter Care Teams Imcu Nurse Relationship Specialty Start Date End Date Amira Hooks PA [address] [place] [id number] PCP - General Family Medicine 07/25/22 documented as of this encounter
--- OUTSIDE RECORDS SUMMARY | 2024-06-04 20:40 | XMS_ITS | Encounter Summary ---
[place] [address] Care Team Providers Care Clarifying Plant Operator Name Role Phone Amira Hooks Primary Care Provider [phone] Encounter Details Date Type Department Care Team (Late st Contact Info) Description 04/09/2024 [place] [phone] Xenia Mcrae, RN Social History Tobacco Use Types Packs/Day Years Used Date Smoking Tobacco: Former Cigarettes 1.5 15 1 - 2009 Smokeless Tobacco: Former Chew Quit: 2013 Alcohol Use Standard Drinks/Week Comments No 0 (1 standard drink = 0.6 oz pur e alcohol) [facility] Inpatient Questions Answer Date Recorded [...] as of this encounter Progress Notes * Xenai Mcrae RN - 04/09/2024 3:26 PM EDT Call returned to patient and . Patient is s/p URS and stent placement today, he has been experiencing discomfort and burning with urination since he was discharged. Reassured patient that this was likely due to irritation from theprocedure today. Discharge instructions reviewed. Encouraged water gluttony, tylenol and flomax as prescribed (per pt's - he is not able to take ibuprofen). Patient will call back with any further questions or concerns, or page urology resident over the weekend if needed. documented in this encounter Miscellaneous Notes * Telephone Encounter - Xenia Mcrae RN - 04/09/2024 3:23 PM EDT Copied from [facility] #[id number]. Topic: Specialty Dept CRMs - Triage >> April 09, 2024 2:49 PM Rayo Bhagat wrote: Triage Message Specialist: Danilo Relationship (if other than patient-full name): Autumn, spouse Symptom: Pain when sitting, burning when urinating, blood in urine after Cystoscopy Has patient experienced symptom before If patient has experienced symptom before, when was the last time this occurred Is patient currently having symptom yes When did symptom begin after procedure today Additional Comments: Patient's spouse, Autumn, called in looking to speak with a nurse - stated that the patient just had a procedure today, and now has painful/burning urination. Autumn said that the patient has pain in bladder when sitting which is better when he is standing. As well, Autumn stated that the patient also has blood in urine, but was told by department that this would be normal after procedure. Autumn said that they are currently at a rest stop and have another hour of travel time home,would like to know if they should turn around and come back. documented in this encounter Plan of Treatment Upcoming Encounters Date Type Department Care Team (Latest Contact Info) Description 06/07/2024 2:00 PM EDT Office [place] [address] Joan Castro MD [facility] [place] [address] 06/11/2024 1:03 PM EDT Hospital Encounter [place] [phone] Rachel Carrasco MD [facility] [place] [place] [address] 06/11/2024 1:03 PM EDT - 06/11/2024 1:58 PM EDT Surgery [place] [phone] Rachel Carrasco MD [facility] [place] [address] CYSTO, REMOVAL OF STENT, FOREIGN BODY OR CALCULUS, SIMPLE (WRVU 2.81) 06/23/2024 10:00 AM EDT Office Visit Cardiology at [address] [phone] Mo Horne MD [facility] [place] [place] [address] Scheduled Procedures Name Priority Associated Diagnoses Date/Ti me CYSTO, REMOVAL OF STENT, FOR EIGN BODY OR CALCULUS, SIMPLE (WRVU 2.81) NEPHROLITHIASIS 06/11/2024 1:03 PM EDT documented as of this encounter Visit Diagnoses Not on filedocumented in this encounter Care Teams Clarifying Plant Operator Relationship Specialty Start Date End Date Amira Hooks PA [address] [place] [phone] PCP - General Family Medicine 07/25/22 documented as of this encounter
--- OUTSIDE RECORDS SUMMARY | 2024-06-04 20:40 | XMS_ITS | Encounter Summary ---
Author Organization [facility] [place] [address] Care Team Providers Care Supply Chain Manager Name Role Phone Amira Hooks Primary Care Provider Reason for Visit * Auth/Cert (Routine) Specialty Diagnoses / Procedures Referred By Zeyad mishra Referred To Contact Diagnoses Nephrolithiasis right ureteral stone Procedures PRO CYSTO/URETEROSCOPY W/LITHOTRIPSY INC INDWELLING STENT INSERTION CYSTOURETEROSCOPY,DIAGNOSTI C,W/ LITHOTRIPSY INC. INSERTION OF INDWELLING URETERAL STENT (WRVU 8) MODIFIER HOLMIUM LASER Rachel Carrasco MD [facility] [place] [address] [facility] Referral ID Status Reason Start Date Expiration Date Visits Re quested Visits Authorized [id number] 1 1 Encounter Details Date Type Department Care Team (Late st Contact Info) Description 05/24/2024 7:39 AM EDT Anesthesia [place] [phone] Ursula Nolan MD [facility] [place] [address] Swetha Zhou DO [facility] [place] [address] Anesthesia Record Procedure Summary Procedure Name Responsible Anesthesiologist Anesthesia Start Time Anesthesia Stop Time CYSTOURETEROSCOPY,BRADLEY GNOSTIC,W/ LITHOTRIPSY INC. INSERTION OF INDWELLING URETERAL STENT (WRVU 8) (Right: Ureter) Ursula Nolan MD 05/24/24 0739 05/24/24 0950 Events Date Time Event Comment 05/24/2024 0702 0739 AN Verify 0739 Start 0742 An Start Data 0750 An Induction 0752 An Intubation 0755 Anesthesia Ready 0940 Extubation/LMA Out 0945 an stop data 0950 Recovery or ICU Handoff Kacey ent care was transferred to the destination unit staff after review of the patient's medical history, current anesthetic/surgical status and plan, according to the Provider Handoff Checklist. 0950 Stop Meds Name Total lidocaine IV 50 mg propofoL 300 mg ePHEDrine 40 mg ondansetron 4 mg dexAMETHasone 4 mg succinylcholine 200 mg famotidine (Pepcid) (10 mg/mL) injection 40 mg 40 mg ciprofloxacin (Cipro) 200 mg in dextrose 5% 100 mL infusion 400 mg lactated ringers infusion 300 mL * Agents Name O2 * Blood No blood administrations on file. Lines, Drains, and Airways Type Details Placement Removal Incision 05/24/24; 0828; penis 05/24/24 0 828 by Ivonne Fuentes, FLAVIA PIV 05/24/24; 0651; [id number]-tvn-[id number] catheter system; 20 gauge; median cubital vein (antecubital fossa), right; no longer indicated, removed per policy/procedure, catheter/device intact; 05/24/24; 1100 05/24/24 0651 by Gerald Naranjo RN 05/24/24 1100 by Edwige Giang, FLAVIA ETT Mask Ventilation: No t Attempted (0); ETT Type: Cuffed; ETT Size: 7.5 mm; Indirect: Video; Notes: Asleep, Pre-O2, RSI; Attempts: 1; Laryngoscopy Grade: 1; ETT Placement Verified By: Auscultation, Capnometry, Visual; Secured at Teeth: 22 cm; Inserted by: DO Abelardo; Removal Date: 05/24/24; Removal Time: 93905/24/24 0759 by Swetha Zhou DO 05/24/24 0940 by Swetha Zhou DO documented in this encounter Social History Tobacco Use Types Packs/Day Years [...] on file documented as of this encounter OR Notes * Anesthesia Postprocedure Evaluation - Ursula Nolan MD - 06/04/2024 4:21 PM EDT Department of Anesthesiology Post-procedure Note Patient: Rolo Aguilar Procedure Summary Date: 05/24/24 Room / Location: [facility] OR [address] [place] [address] MAIN OR Anesthesia Start: 738 Anesthesia Stop: 949 Procedures: CYSTOURETEROSCOPY,DIAGNOSTIC,W/ LITHOTRIPSY INC. INSERTION OF INDWELLING URETERAL STENT (WRVU 8) (Right: Ureter) MODIFIER HOLMIUM LASER (Ureter) Diagnosis: Nephrolithiasis (right ureteral stone) Surgeons: Rachel Carrasco MD Responsible Provider: Ursula Nolan MD Anesthesia Type: general ASA Status: 3 All Anesthesia Providers: Anesthesiologist: Ursula Nolan MD Actuarial Science Teacher: Swetha Zhou DO Vitals Value Taken Time BP 123/69 05/24/24 1015 Temp 35.9 ??C (96.6 ??F) 05/24/24 0944 Pulse 78 05/24/24 1030 Resp 21 05/24/24 1030 SpO2 96 % 05/24/24 1030 Pain Level 0 05/24/24 1000 Patient Location: PACU/OKP Level of Consciousness: Awake and Alert Pain Management: Satisfactory Analgesia PONV: None Cardiovascular Status: At Baseline and Hemodynamically Stable Respiratory Status: At Baseline and Room Air Postoperative Fluid Status: Intravascular EUvolemia Possible Anesthetic Complications: NONE apparent at time of evaluation Final Primary Anesthesia Type: General (The anesthetic type performed was the same as planned.) Comments: Ursula Nolan MD * Anesthesia Preprocedure Evaluation - Swetha Zhou DO - 05/24/2024 7:11 AM EDT Images from the original note were not included. Pre-Anesthesia Evaluation for: Rolo Aguilar a 53 y.o. male. Procedure(s): CYSTOURETEROSCOPY,DIAGNOSTIC,W/ LITHOTRIPSY INC. INSERTION OF INDWELLING URETERAL STENT (WRVU 8) MODIFIER HOLMIUM LASER Patient Active Problem List Diagnosis Date Noted Small intestinal bacterial overgrowth (SIBO) 03/02/2024 Gastroesophageal reflux disease 11/28/2023 Obstructive sleep apnea syndrome 09/18/2022 Dyspepsia 09/18/2022 Atrial flutter 02/14/2021 Bipolar disorder 01/03/2021 SVT (supraventricular tachycardia) 12/21/2020 PAF (paroxysmal atrial fibrillation) 12/21/2020 Flutter-fibrillation 2020 Atrial fibrillation 11/28/2020 H/O cardiac radiofrequency ablation 07/10/2020 Coronary disease 07/29/2019 Heart palpitations 07/29/2019 Obesity 07/29/2019 Essential hypertension 07/29/2019 Past Medical History: Diagnosis Date A-fib Anxiety Arthritis CAD (coronary artery disease) Depression Flutter-fibrillation GERD (gastroesophageal reflux disease) Hepatitis HLD (hyperlipidemia) Hypertension Seizure Past Surgical History: Procedure Laterality Date CHOLECYSTECTOMY PRO CYSTOSCOPY, INSERT URETERAL STENT Right 04/09/2024 CYSTO, STENT PLACEMENT (WRVU 2.82) performed by Rachel Carrasco MD at [facility] MAIN OR PRO LAP, CHOLECYSTECTOMY/GRAPH N/A 07/21/2018 LAPAROSCOPIC CHOLECYSTECTOMY WITH CHOLANGIOGRAM (WRVU 11.47) performed by Colt Hewitt MD [facility] MAIN OR PRO UNLISTED LAPAROSCOPIC PX LVR N/A 07/21/2018 LAPAROSCOPIC LIVER BIOPSY (WRVU 16.52) performed by Colt Hewitt MD at [facility] MAIN OR PRO UPPER GI ENDOSCOPY, BIOPSY N/A 12/29/2017 UPPER GASTROINTESTINAL ENDOSCOPY,WITH BIOPSY SINGLE OR MULTIPLE (WRVU 2.49) performed by Yusuf Tucker MD at [facility] ENDOSCOPY PRO UPPER GI ENDOSCOPY, BIOPSY N/A 03/08/2024 EGD WITH BIOPSY (WRVU 2.39) performed by Radu Silveira MD at [facility] ENDOSCOPY PRO UPPER GI ENDOSCOPY, DIAGNOSTIC N/A 12/29/2017 EGD, UPPER GI ENDOSCOPY performed by Yusuf Tucker MD at [facility] ENDOSCOPY TONSILLECTOMY Social History Tobacco Use Smoking status: Former Current packs/day: 0.00 Average packs/day: 1.5 packs/day for 15.0 years (22.5 ttl pk-yrs) Types: Cigarettes Start date: 1994 Quit date: 2009 Years since quittin.5 Smokeless tobacco: Former Types: Chew Quit date: 2013 Substance Use Topics Alcohol use: No Social History Substance and Sexual Activity Drug Use Not Currently Types: Benzodiazapines , Opioids Comment: oxycodone for back pain Allergies Allergen Reactions Adenosine Palpitations tachycardia Other reaction(s): Rapid heart beat PT had an adverse reaction HR went up to 250%27s Gabapentin Wellbutrin [Bupropion Hcl] Zoloft [Sertraline] Medications: MAR and/or home medications have been reviewed. Physical Exam: Preprocedure Vitals Current as of 05/21/24 1644 No BP, pulse, respiration, SpO2, or temperature recorded. Height: Weight: BMI: IBW: Airway Assessment: Mallampati: II TM distance: >3 FB Neck ROM: full Bearded, plethoric neck Cardiovascular Assessment: Rhythm: regular Rate: normal Pulmonary Assessment: unlabored breathing Dental Assessment: Misc Assessment: IV access: Peripheral line Other exam findings: 20g in R AC fossa None Anesthesia Plan: ASA 3 general, with a(n) intravenous induction Rolo Aguilar is a 53 y.o. male with right ureteral stone scheduled cysto/stent/laser lithotripsy with Dr. Carrasco. PMH: Obesity (BMI: 74.41 kg/m??), asthma (atrovent/no recent issue), CHF (lasix, torsemide), atrialfibrillation (apixaban LAST DOSE: 05/22, metoprolol), HTN (lisinopril), ASCVD (ASA, NTG), HLD (atorvastatin), GERD/Motility issues (Dexlansoprazole, neomycin, sucralfate, motility), anxiety (clonazepam, lamotrigine). Exercise tolerance: ~4 METs, walks from basement stairs to upstairs without CP/SOB NPO Status: appropriately NPO >8h Allergies reviewed, adenosine (tachycardia), gabapentin, wellbutrin, Zoloft (reactions not specified) LABS & STUDIES Labs 12/2023: CBC and BMP WNL EKG 06/2023: NSR, no ST changes suggestive of ischemia ZioPatch 07/2022: Predominant rhythm is sinus; There were 11 episodes of SVT, some symptomatic, lasting as long as 15 seconds. There were episodes of junctional rhythm; No severe or symptomatic bradycardia, significant pauses (>3 seconds) or high grade AV block. TTE: 1. A trivial pericardial effusion is visualized. 2. Compared with the prior TTE images of 01/11/2021, the amount of pericadial effusion has decreasd. 3. Global left ventricular wall motion and contractility are probably within normal limits. LVEF 70%. 4. Right ventricular global systolic function is probably normal. ANESTHESIA HISTORY Anesthetic Hx: No apparent issues with GA or MAC; noted to be Grade one with MAC4 ANESTHETIC PLAN GA, ETT Standard ASA monitoring Adequate PIV access Multimodal PONV and pain management Swetha Zhou DO, PGY2/CA1 Department of Anesthesiology p3[facility] - Other Informed Consent: Anesthetic plan and risks discussed with patient and spouse. Plan discussed with resident and attending. Anesthesia Screening documented in this encounter Plan of Treatment Upcoming Encounters Date Type Department Care Team (Latest Contact Info) Description 06/07/2024 2:00 PM EDT Office [place] [phone] Joan Castro MD [facility] [place] [address] 06/11/2024 1:03 PM EDT Hospital Encounter [place] [address] Rachel Carrasco MD [facility] [place] [address] 06/11/2024 1:03 PM EDT - 06/11/2024 1:58 PM EDT [place] [phone] Rachel Carrasco MD [facility] [place] [address] CYSTO, REMOVAL OF STENT, FOREIGN BODY OR CALCULUS, SIMPLE (WRVU 2.81) 06/23/2024 10:00 AM EDT Office Visit Cardiology at [address] [address] Mo Horne MD [facility] [place] [address] Scheduled Procedures Name Priority Associated Diagnoses Date/Ti me CYSTO, REMOVAL OF STENT, FOR EIGN BODY OR CALCULUS, SIMPLE (WRVU 2.81) NEPHROLITHIASIS 06/11/2024 1:03 PM EDT documented as of this encounter Visit Diagnoses Not on filedocumented in this encounter Administered Medications Inactive Administered Medications - up to 3 most recent administrations Medication Order MAR Action Action Date Dose Rate Site ciprofloxacin (Cipro) 200 mg in dextrose 5% 100 mL infusion 200 mg, Intravenous, EVERY 12 HOURS, First dose on Fri05/24/24 at 0800, Until Discontinued, Administer over 60 Minutes, Indication for (Active or Suspected): Uriniary Tract/Pyelonephritis, Restricted Antibiotic: Please indicate the most appropriate choice: Pre-approved indication (state the indication in comments field) Given 05/24/2024 7:57 AM EDT 400 mg dexAMETHasone (Decadron) injection Intravenous, PRN, Starting on Fri05/24/24 at 0822, Until Fri05/24/24 at 1110, Anesthesia Intra-op, Routine Given 05/24/2024 8:22 AM EDT 4 mg ePHEDrine sulfate (5 mg/mL) multi-dose injection Intravenous, PRN, Starting on Fri05/24/24 at 0801, Until Fri05/24/24 at 1110, Anesthesia Intra-op, Routine Given 05/24/2024 9:26 AM EDT 5 mg Given 05/24/2024 8:51 AM EDT 10 mg Given 05/24/2024 8:34 AM EDT 10 mg famotidine (Pepcid) (10 mg/mL) injection 40 mg 40 mg, Intravenous, ONCE, 1 dose, On Fri05/24/24 at 0745 New Bag 05/24/2024 7:39 AM EDT 40 mg lactated ringers infusion 1,000 mL, at 100 mL/hr, Intravenous, CONTINUOUS, Starting on Fri05/24/24 at 0700, Until Fri05/24/24 at 1125, Day of Surgery (Day of Procedure) New Bag 05/24/2024 7:39 AM EDT New Bag 05/24/2024 6:55 AM EDT 1,000 mLs 100 mL/hr lidocaine (pf) (Xylocaine) (20 mg/mL) 2% injection syringe Intravenous, PRN, Starting on Fri05/24/24 at 0750, Until Fri05/24/24 at 1110, Anesthesia Intra-op, Routine Given 05/24/2024 7:50 AM EDT 50 mg ondansetron (pf) (Zofran) (2 mg/mL) injection Intravenous, PRN, Starting on Fri05/24/24 at 0910, Until Fri05/24/24 at 1110, Anesthesia Intra-op, Routine Given 05/24/2024 9:10 AM EDT 4 mg propofoL (Diprivan) 10 mg/mL bolus injection (Anesthesia) Intravenous, PRN, Starting on Fri05/24/24 at 0750, Until Fri05/24/24 at 1110, Anesthesia Intra-op Given 05/24/2024 7:52 AM EDT 100 mg Given 05/24/2024 7:50 AM EDT 200 mg succinylcholine (Anectine;Quelicin) (20 mg/mL) injection Intravenous, PRN, Starting on Fri05/24/24 at 0750, Until Fri05/24/24 at 1110, Anesthesia Intra-op, Routine Given 05/24/2024 7:50 AM EDT 200 mg documented in this encounter Care Teams Supply Chain Manager Relationship Specialty Start Date End Date Amira Hooks PA [address] [place] [id number] PCP - General Family Medicine 07/25/22 documented as of this encounter
--- OUTSIDE RECORDS SUMMARY | 2024-06-04 20:40 | XMS_ITS | Encounter Summary ---
Author Organization [facility] Address [facility] [place] [address] Care Team Providers Care Datastage Architect Name Role Phone Amira Hooks Primary Care Provider Encounter Details Date Type Department Care Team (Late st Contact Info) Description 05/14/2024 Telephone Urology [place] [address] Arron Sparks MD [facility] [place] [address] Social History Tobacco Use Types Packs/Day Years [...] encounter Miscellaneous Notes * Telephone Encounter - Arron Sparks MD - 05/14/2024 5:18 PM EDT Attempted to call pt to request he obtain Ucx for upcoming procedure with Dr. Carrasco. No response, left VM for callback. Of note there is a standing order for Ucx that could be used for this. Arron Sparks MD documented in this encounter Plan of Treatment Upcoming Encounters Date Type Department Care Team (Latest Contact Info) Description 06/07/2024 2:00 PM EDT Office Visit Gastroenterology [place] [phone] Joan Castro MD [facility] [place] [address] 06/11/2024 1:03 PM EDT Hospital Encounter [place] [phone] Rachel Carrasco MD [facility] [place] [address] 06/11/2024 1:03 PM EDT - 06/11/2024 1:58 PM EDT Surgery [place] [phone] Rachel Carrasco MD [facility] [place] [address] CYSTO, REMOVAL OF STENT, FOREIGN BODY OR CALCULUS, SIMPLE (WRVU 2.81) 06/23/2024 10:00 AM EDT Office Visit Cardiology at [address] [phone] Mo Horne MD [facility] [place] [address] Scheduled Procedures Name Priority Associated Diagnoses Date/Ti me CYSTO, REMOVAL OF STENT, FOR EIGN BODY OR CALCULUS, SIMPLE (WRVU 2.81) NEPHROLITHIASIS 06/11/2024 1:03 PM EDT documented as of this encounter Visit Diagnoses Not on filedocumented in this encounter Care Teams Datastage Architect Relationship Specialty Start Date End Date Amira Hooks PA [address] [place] [id number] PCP - General Family Medicine 07/25/22 documented as of this encounter
--- OUTSIDE RECORDS SUMMARY | 2024-06-04 20:40 | XMS_ITS | Referral Summary ---
Author Organization [facility] Address [address] [place] [address] Care Team Providers Care Chief Engineer Research Name Role Phone Unavailable Primary Care Provider [...] Orientation Not on file Plan of Treatment Not on file
--- OUTSIDE RECORDS SUMMARY | 2024-06-04 20:40 | XMS_ITS | Clinical Summary ---
Author Organization [facility] Address [facility] [place] [address] Care Team Providers Care Communication Signals Intelligence Name Role Phone Amira Hooks Primary Care Provider Allergies Active Allergy Reactions Criticality Noted Date Comments Adenosine Palpitations High 07/07/2020 tachycardia Other reaction(s): Rapid heart beat PT had an adverse reaction HR went up to 250%27s Gabapentin 05/23/2017 Bupropion Hcl 05/23/2017 Sertraline 05/23/2017 Medications Medication Sig Dispensed Refills Start Date End Date Status clonazePAM (KLONOPIN) 1 mg Tablet Take 1 mg by mouth 3 times daily as needed for Anxiety. Active aspirin 81 mg Tablet, Delayed Release (E.C.) Take 1 tablet by mouth daily. 30 tablet 3 07/16/2017 Active nitroGLYcerin (NITROSTAT) 0.4 mg Tablet, Sublingual DISSOLVE 1 UNDER TONGUE NEEDED 4 03/10/2018 Active acetaminophen (TYLENOL) 325 mg Tablet Take 2 tablets by mouth every 6 hours as needed for Pain. 30 tablet 1 07/21/2018 Active lisinopriL (Prinivil;Zestril) 2.5 mg TabletIndications:Es sential hypertension Take 1 tablet by mouth daily. 90 tablet 3 05/26/2020 Active clindamycin (CLINDAGEL) 1 % Gel APPLY TOPICALLY TO AFFECTED AREA TWICE DAILY 30 g 1 12/19/2020 Active lamoTRIgine (LaMICtal) 100 mg Tablet Take 1 tablet by mouth daily. 30 tablet 12 01/14/2021 Active Additional Information Patient taking differently: 200 mgOral DAILY, Reported on 06/18/2023 furosemide (Lasix) 20 mg Tablet Take 1 tablet by mouth daily. 30 tablet 01/24/2021 Active metoprolol succinate XL (Toprol XL) 50 mg Tablet Sustained Release 24 hr Take 1 tablet by mouth 2 times daily. 180 tablet 3 03/19/2021 Active atorvastatin (Lipitor) 20 mg TabletIndications:Hy perlipidemia, unspecified hyperlipidemia type Take 1 tablet by mouth every evening. 90 tablet 05/08/2021 Active apixaban (Eliquis) 5 mg TabletIndications:At rial flutter, unspecified type Take 1 tablet by mouth 2 times daily. 180 tablet 1 04/24/2022 Active [address] capsule Take 60 mg by mouth daily. 04/02/2023 Active loratadine (Claritin) 10 mg Tablet Take 10 mg by mouth daily as needed. 04/02/2023 Active metoclopramide (Reglan) 5 mg tablet Take 5 mg by mouth 3 times daily as needed. 06/03/2023 Active torsemide (Demadex) 20 mg tablet Take 40 mg by mouth daily. Active potassium chloride ER (Klor-Con, K-Tab) 10 mEq ER tablet Take 4 tablets by mouth Daily at Noon. 10/31/2023 Active ipratropium (ATROVENT) 21 mcg (0.03 %) [place], Non-Aerosol INSTILL 2 SPRAYS VIA NOSTRILS AT BEDTIME 09/18/2023 Active prucalopride (Motegrity) 2 mg tabletIndications:Ch ronic constipation Take 1 tablet by mouth daily. 30 tablet 3 03/02/2024 Active sucralfate (Carafate) 1 gram tabletIndications:Dy spepsia Take 1 tablet by mouth 4 times daily. If needed for upper abdominal discomfort and burning. Administer on an empty stomach. Take at least 2 hours before and 2 hours after other medications to prevent problems with absorption. 120 tablet 3 03/26/2024 Active tamsulosin (Flomax) 0.4 mg capsule Take 1 capsule by mouth daily. 90 tablet 3 04/09/2024 Active oxyCODONE (Roxicodone) 10 mg tablet Take 1 tablet by mouth every 4 hours. 15 tablet 04/10/2024 Active Active Problems Problem Noted Date Diagnosed Date Small intestinal bacterial overgrowth (SIBO) Gastroesophageal reflux disease 11/28/2023 Obstructive sleep apnea syndrome 09/18/2022 Dyspepsia 09/18/2022 Atrial flutter 02/14/2021 Bipolar disorder 01/03/2021 SVT (supraventricular tachycardia) 12/21/2020 Overview (12/21/2020): Added automatically from request for surgery [id number] PAF (paroxysmal atrial fibrillation) 12/21/2020 Overview (01/02/2021): Added automatically from request for surgery [id number] Flutter-fibrillation 2020 Atrial fibrillation 11/28/2020 H/O cardiac radiofrequency ablation 07/10/2020 Coronary disease 07/29/2019 Overview (07/29/2019): ?? 2017: STEMI. PCI of OM1. EF 60%. Many ER visits to [facility] after this. Heart palpitations 07/29/2019 Obesity 07/29/2019 Essential hypertension 07/29/2019 Encounters Date Type Department Care Team Description 06/04/2024 Telephone Urology at [place] [phone] Jose Juan Anton MD 06/04/2024 [place] [phone] Michelle Reed RN 06/04/2024 [place] [phone] Xenia Mcrae RN 06/02/2024 [place] [address] Shai Mckeon PA 06/01/2024 Travel 05/24/2024 7:39 AM EDT Anesthesia Event [place] [phone] Ursula Nolan MD Bloom, Charlotte E, DO 05/24/2024 7:30 AM EDT - 05/24/2024 9:45 AM EDT Surgery Main Operating Room [place] [id number] Rachel Carrasco MD CYSTOURETEROSCOPY,BRADLEYG ADEW/ LITHOTRIPSY INC. INSERTION OF INDWELLING URETERAL STENT (WRVU 8) 05/24/2024 6:15 AM EDT - 05/24/2024 11:03 AM EDT Hospital Encounter Same Day Program at [address] Rachel Carrasco MD Nephrolithiasis Discharge Disposition: Home 05/21/2024 Telephone Urology at [place] [address] Michelle Reed RN 05/21/2024 Telephone Urology at [place] [address] Jose Juan Anton MD 05/17/2024 Telephone Urology at [place] [address] Xenia Mcrae RN 05/14/2024 Telephone Urology at [place] [address] Arron Sparks MD 05/03/2024 Orders Only Urology [place] [address] Abelino Lazar MD 04/27/2024 Orders Only Urology at [place] [address] Nathen Yanez MD 04/27/2024 [place] [address] Michelle Reed RN 04/14/2024 [place] [address] Xenia Mcrae RN 04/12/2024 Telephone Urology at [place] [phone] Xenia Mcrae, FLAVIA 04/10/2024 [place] [address] Carlos Redd MD 04/09/2024 2:11 PM EDT - 04/09/2024 11:59 PM EDT Hospital Encounter XRay at [address] [place] [address] Rachel Carrasco MD Discharge Disposition: Home 04/09/2024 11:48 AM EDT - 04/09/2024 2:11 PM EDT Surgery Main Operating Room [place] [phone] Rachel Carrasco MD CYSTO, STENT PLACEMENT (WRVU 2.82) 04/09/2024 11:16 AM EDT Anesthesia Event [place] [address] Amarjit Beth MD [place], Ann O, CRNA 04/09/2024 10:00 AM EDT - 04/09/2024 1:48 PM EDT Hospital Encounter Same Day Program at [place] [phone] Rachel Carrasco MD Hematuria, unspecified type Discharge Disposition: Home 04/09/2024 [place] [address] Carlos Redd MD 04/09/2024 [place] [address] Xenia Mcrae, FLAVIA 04/09/2024 Orders Only Urology [place] [phone] Abelino Lazar MD Nephrolithiasis 04/08/2024 Telephone Urology at [place] [phone] Xenia Mcrae, FLAVIA 04/02/2024 [place] [address] Michelle Reed, FLAVIA 04/01/2024 Telephone Urology at [place] [address] Michelle Reed, RN 03/31/2024 Telephone Urology at [place] [phone] Joss Johnson, corporate secretary (Flank pain) 03/31/2024 Telephone Urology at [place] [address] Joss Johnson, RN 03/24/2024 Telephone Urology at [place] [address] Rachel Carrasco MD 03/16/2024 Telephone Urology at [place] [address] Michelle Reed RN 03/08/2024 11:00 AM EDT - 03/08/2024 11:30 AM EDT Surgery Gastroenterology at [place] [address] Radu Silveira MD EGD WITH BIOPSY (WRVU 2.39) 03/08/2024 10:35 AM EDT Anesthesia Event Gastroenterology at [place] [address] aGbriel Parra MD 03/08/2024 10:02 AM EDT - 03/08/2024 11:27 AM EDT Hospital Encounter Gastroenterology at [place] [address] Radu Silveira MD Discharge Disposition: Home 03/05/2024 Telephone Gastroenterology at [place] [address] Salima Pereira from Last 3 Months Family History Medical History Relation Comments Coronary Artery Disease Brother Diabetes Brother Hypertension Brother Coronary Artery Disease Father Hypertension Father Coronary Artery Disease Sister Relation Status Comments Brother Father Mother Alive Sister Social History Tobacco Use Types Packs/Day Years Used Date Smoking Tobacco: Former Cigarettes 1.5 15 1 995 - 2009 Smokeless Tobacco: Former Chew Quit: 2014 Tobacco Cessation:Counseling Given: Not Answered Alcohol Use Standard Drinks/Week Comments No 0 (1 standard drink = 0.6 oz pur e alcohol) [facility] Inpatient Questions Answer Date Recorded Does Anyone [...] PM EDT Sexual Orientation Not on file Last Filed Vital Signs Vital Sign Reading [...] Mass Index 74.1 05/24/2024 6:32 AM EDT Plan of Treatment Upcoming Encounters Date Type Department Care Team (Latest Contact Info) Description 06/07/2024 2:00 PM EDT Office [place] [phone] Joan Castro MD [facility] [place] [address] 06/11/2024 1:03 PM EDT Hospital Encounter [place] [phone] Rachel Carrasco MD [facility] [place] [address] 06/11/2024 1:03 PM EDT - 06/11/2024 1:58 PM EDT Surgery Main Operating Room [facility] [place] [address] Rachel Carrasco MD [facility] [place] [address] CYSTO, REMOVAL OF STENT, FOREIGN BODY OR CALCULUS, SIMPLE (WRVU 2.81) 06/23/2024 10:00 AM EDT Office Visit Cardiology at [address] [phone] Mo Horne MD [facility] [place] [address] Scheduled Procedures Name Priority Associated Diagnoses Date/Ti me CYSTO, REMOVAL OF STENT, FOR EIGN BODY OR CALCULUS, SIMPLE (WRVU 2.81) NEPHROLITHIASIS 06/11/2024 1:03 PM EDT Health Maintenance Due Date Last Done Comments CT Colonography 1969 Colonoscopy 1969 Colorectal Cancer Screening 1969 FIT DNA 1969 FIT 1969 Sigmoidoscopy (10 year) with FIT yearly 1969 Sigmoidoscopy 1969 HIV screen 1987 Hepatitis C Screening 1987 Hepatitis B vaccine (0-59 yrs) (1) 1988 Tdap adult 1988 Tetanus vaccine 1988 Zoster vaccine (1 of 2) 2019 Covid-19 Vaccine ( - 2022-2 4 season) 2023 Influenza (Flu) vaccine (1 o f 1 - Influenza standard series) 07/11/2024 Diabetes Screening (HgbA1C o r Glucose) 01/04/2027 01/04/2024, 04/06/2023, 12/26/2021, Additional history exists Medical Devices Implanted Type Area Practical Nursing Instructor Device Identifier Shelf Expiration Date Model / Serial / Lot Stent Ureteral [id number] Dbl Pgtl Soft Ptfe Tria ([id number]) - [id number] Implanted:Qty : 1 on 04/09/2024 by Rachel Carrasco MD at [facility] IMPLANTS Right: Ureter [employer] 10/16/2026 [id number] / / [id number] Stent Ureteral [id number] Dbl Pgtl Firm Ptfe Tria ([id number]) - [id number] Implanted:Qty : 1 on 05/24/2024 by Rachel Carrasco MD at [facility] IMPLANTS Right: Ureter [employer] 10/16/2026 [id number] 40 / / [id number] Procedures Procedure Name Priority Date/Time Associated Diagnosis Comments XR FLUORO NO RAD <1HR - OR USE Routine 05/24/2024 9:46 AM EDT SPECIMEN TO PATHOLOGY Routine 05/24/2024 9:23 AM EDT KIDNEY STONE ANALYSIS Routine 05/24/2024 9:23 AM EDT MODIFIER HOLMIUM LASER Yes 05/24/2024 7:38 AM EDT Nephrolithiasis Cysto/Ureteroscopy W/Lithotripsy Inc Indwelling Stent Insertion (24000) Yes 05/24/2024 7:38 AM EDT Nephrolithiasis POCT GLUCOSE Routine 05/24/2024 6:44 AM EDT CYSTOURETEROSCOPY,DI AGNOSTIC,W/ LITHOTRIPSY INC. INSERTT Routine 05/24/2024 6:16 AM EDT Nephrolithiasis IMPLANTABLE DEVICES SCAN 05/24/2024 12:00 AM EDT LAB SCAN 05/20/2024 12:00 AM EDT XR FLUORO NO RAD <1HR - OR USE Routine 04/09/2024 2:12 PM EDT Cystoscopy, Insert Ureteral Stent (87365) Yes 04/09/2024 11:16 AM EDT LEFT URETERAL STONE/HEMATURIA WORK UP HC CREATININE Routine 04/09/2024 11:01 AM EDT Hematuria, unspecified type IMPLANTABLE DEVICES SCAN 04/09/2024 12:00 AM EDT SPECIMEN TO PATHOLOGY Routine 03/08/2024 10:54 AM EDT SPECIMEN TO PATHOLOGY Routine 03/08/2024 10:54 AM EDT SPECIMEN TO PATHOLOGY Routine 03/08/2024 10:54 AM EDT SURGICAL PATHOLOGY REPORT Routine 03/08/2024 10:49 AM EDT Upper Gi Endoscopy, Biopsy ([id number]) 03/08/2024 10:38 AM EDT Dyspepsia Screening for colon cancer UPPER GI ENDOSCOPY Routine 03/08/2024 9: 59 AM EDT BASIC METABOLIC PANEL (NON-FASTING) STAT 01/04/2024 12:38 PM EST from Last 3 Months or Most Recently Relevant to Health Maintenance Results * XR Fluoro No Rad <1Hr - OR Use (05/24/2024 9:46 AM EDT) Only the most recent of2 resultswithin the time period is included. Narrative Dicom, Auditing User - 05/24/2024 9:46 [...] developed and its performance characteristics ?determined by [facility] in a manner consistent with CLIA ?requirements. This test has not been cleared or approved by ?the U.S. Food and Drug Administration. ?Test Performed by: ?[facility] ?[address] [place] [address] ?Store Planner: Pippa Traore Ph.D.; CLIA# [id number] [facility] Calculus Other / Unknown 05/24/2024 9 :23 AM EDT 05/24/2024 3:58 PM EDT Narrative Resulting Agency Comment Spec In Lab Rachel Carrasco MD BODY FLUIDS AND WILLIAMS THIBODEAUX ORDERABLES [facility] [place] [address] * Specimen to Pathology (05/24/2024 9:23 AM EDT) Only the most recent of4 resultswithin the time period is included. AP Specimen 05/24/2024 9:23 AM EDT 05/24/2024 9:23 AM EDT Narrative [facility] - 05/24/2024 9:23 AM EDT Specimen requisition ordered. ??Separate Pathology report to follow Rachel Carrasco MD PATHOLOGY/CYTOLOGY O ORIANA [facility] [place] [address] * POCT Glucose (05/24/2024 6:44 AM EDT) POC Glucose 116 65 - 199 mg/dL [facility] Comment: Supplemental ranges: <140 mg/dL before meals <180 mg/dL all other times of the day Blood 05/24/2024 6:44 AM EDT 05/24/2024 6:44 AM EDT Rachel Carrasco MD POINT OF CARE TEST O ORIANA [facility] [place] [address] * Scan Doc: Implantable Devices (05/24/2024 12:00 AM EDT) Narrative 05/24/2024 12:00 AM EDT Ordered by an unspecified provider. Scanning Provider MEDIA MGR SCAN EXT O RDR/RSLT * Scan Doc: Lab (05/20/2024 12:00 AM EDT) Narrative 05/20/2024 12:00 AM EDT Ordered by an unspecified provider. Scanning Provider MEDIA MGR SCAN EXT O RDR/RSLT * Creatinine (04/09/2024 11:01 AM EDT) Creatinine 0.88 0.80 - 1.50 mg/dL [facility] Estimated GFR 102 >=60 mL/min/1. 73 m?? [facility] Comment: This patient's estimated GFR was calculated using the 2020 CKD-EPI equation. The estimated GFR can vary from the measured GFR by up to 30% in the absence of rapidly changing kidney function. Assessment of the estimated GFR is not appropriate when creatinine concentrations are rapidly changing. For clinical situations in which a more precise estimate of GFR is necessary, consider alternative methods of GFR estimation such as a 24-hour urine creatinine clearance. Assignment of CKD stage 1-5 for patients with an eGFR near the transition point between stages may be based on clinical assessment of muscle mass and symptoms in addition to eGFR. Blood 04/09/2024 11:0 1 AM EDT 04/09/2024 11:15 AM EDT Narrative Resulting Agency Comment Spec In Lab Rachel Carrasco MD CHEMISTRY ORDERABLES Performing Organization Address City/State/[facility] Co de Phone Number [facility] [place] [address] * Scan Doc: Implantable Devices (04/09/2024 12:00 AM EDT) Narrative 04/09/2024 12:00 AM EDT Ordered by an unspecified provider. Scanning Provider MEDIA MGR SCAN EXT O RDR/RSLT * Surgical Pathology Report (03/08/2024 10:49 AM EDT) FINAL DIAGNOSIS (AP) 60 ? Location: 4T; EA11; A The signing pathologist has (i) examined the relevant preparation(s) for the specimen(s) and (ii) rendered or confirmed the diagnosis(es). . ?Surgical Pathology DIAGNOSIS A - Duodenal biopsies, biopsy (4): - Duodenal mucosa, negative for diagnostic abnormality ?? . B - Gastric biopsies, biopsy (4): - ??Antrum-type mucosa with reactive gastropathy and focal ?? intestinal metaplasia. - ??Body/fundic-t ype mucosa with parietal cell hyperplasia consistent with PPI effect. C - Mid- esophagus biopsies, biopsy (4): - ??Squamous mucosa negative for diagnostic abnormality. Electronically signed by: ?Tyson Durbin MD Verified: ??03/19/2024 15:53 ??Pathologist Performed at: ??-[facility] Dept. of Pathology, [place] [address] Rn Sexual Assault: Rosendo Hawkins MD, FCAP, ??CLIA Certificate: [id number] SPECIMEN(S) SUBMITTED A - duodenal biopsies, biopsy (4) B - gastric biopsies, biopsy (4) C - mid- esophagus biopsies, biopsy (4) CLINICAL INFORMATION 53-year-old male with history of bloating SPECIMEN PROCESSING A - Labeled/Fixativ e: Duodenal biopsies, formalin. Quantity/Size: Four, ranging from 0.2 to 0.4 cm. Tissue Description: Soft, singh-pink tissues. Sections/Proces sing: Submitted in toto ??in 1 cassette labeled A1. B - Labeled/Fixativ e: Gastric biopsies, formalin. Quantity/Size: Five, ranging from 0.4 to 0.8 cm. Tissue Description: Soft, singh-pink tissues. Sections/Proces sing: Submitted in toto ??in 1 cassette labeled B1. C - Labeled/Fixativ e: Mid esophagus biopsies, formalin. Quantity/Size: Four, ranging from 0.2 to 0.5 cm. Tissue Description: Soft, white tissues. Sections/Proces sing: Submitted in toto ??in 1 cassette labeled C1. ??sdy 03/19/2024 3:53 PM EDT [facility] 03/08/2024 10:4 9 AM EDT Radu Silveira MD PATHOLOGY/CYTOLOGY O ORIANA [facility] [place] [id number] * UPPER GI ENDOSCOPY (03/08/2024 9:59 AM EDT) UPPER GI ENDOSCOPY [facility] ___ Procedure Date: 03/08/2024 9:59 AM ? Patient Name: Rolo Aguilar ? Date of : 1970 ? Age: 53 ? Order #: [id number] ? Instrument Name: [id number] ? ___ Procedure: ? Upper GI endoscopy Indications: ? Abdominal bloating Providers: ? Radu Silveira, Violet Macias, ? Jose Langston Referring MD: ?Amira Hooks Medicines: ? Propofol per Anesthesia Complications: ? No immediate complications. ___ Procedure: ? Pre-Anesthesia Assessment: ? - Prior to the procedure, a History ? and Physical was performed, and ? patient medications and allergies ? were reviewed. The patient is ? competent. The risks and benefits ? of the procedure and the sedation ? options and risks were discussed ? with the patient. All questions ? were answered and informed consent ? was obtained. Patient ? identification and proposed ? procedure were verified by the ? physician in the pre-procedure ? area. Mental Status Examination: ? alert and oriented. Airway ? Examination: normal oropharyngeal ? airway and neck mobility. ? Respiratory Examination: clear to ? auscultation. CV Examination: ? normal. Prophylactic Antibiotics: ? The patient does not require ? prophylactic antibiotics. Prior ? Anticoagulants: The patient has ? taken no anticoagulant or ? antiplatelet agents. ASA Grade ? Assessment: III - A patient with ? severe systemic disease. After ? reviewing the risks and benefits, ? the patient was deemed in ? satisfactory condition to undergo ? the procedure. The anesthesia plan ? was to use monitored anesthesia ? care (MAC). Immediately prior to ? administration of medications, the ? patient was re-assessed for ? adequacy to receive sedatives. The ? heart rate, respiratory rate, ? oxygen saturations, blood pressure, ? adequacy of pulmonary ventilation, ? and response to care were monitored ? throughout the procedure. The ? physical status of the patient was ? re-assessed after the procedure. ? The procedure, indications, ? benefits, risks and alternatives ? were explained to the patient. ? Specifically discussed were ? potential complications including, ? but not limited to, bleeding, ? perforation, infection, missing a ? cancer, and adverse medication ? reactions. The Endoscope was ? introduced through the mouth, and ? advanced to the second part of ? duodenum The patient tolerated the ? procedure well. ? Findings: ? The examined esophagus was normal. Multiple biopsies ? were obtained in the mid esophagus with cold forceps ? for histology. ? Esophagogastric landmarks were identified: the Z-line ? was found at 45 cm and the gastroesophageal junction ? was found at 45 cm from the incisors. ? Scattered moderate inflammation characterized by ? erosions and erythema was found in the gastric ? antrum. Biopsies were taken with a cold forceps for ? histology and Helicobacter pylori testing. ? The examined duodenum was normal. Biopsies for ? histology were taken with a cold forceps for ? evaluation of celiac disease. ? Moderate Sedation: ? Not applicable - See Anesthesia documentation Impression: ?- Normal esophagus. Multiple ? biopsies were obtained in the mid ? esophagus. ? - Gastritis. Biopsied. ? - Normal examined duodenum. ? Biopsied. Recommendation: ?- Discharge patient to home. ? - Resume previous diet. ? - Await pathology results. ? - Return to GI office. ? Procedure Code(s): ? --- Professional --- ? 42493, Esophagogastroduode noscopy, ? flexible, transoral; with biopsy, ? single or multiple Diagnosis Code(s): ? --- Professional --- ? R14.0, Abdominal distension ? (gaseous) ? K29.70, Gastritis, unspecified, ? without bleeding ? --- Technical --- ? R14.0, Abdominal distension ? (gaseous) ? K29.70, Gastritis, unspecified, ? without bleeding CPT copyright 2021 [employer]. All rights reserved. The codes documented in this report are preliminary and upon him coder review may be revised to meet current compliance requirements. Attending Participation: ? I personally performed the entire procedure. ? Radu Silveira, 03/08/2024 10:56:11 AM Number of Addenda: 0 Note Initiated On: 03/08/2024 9:59 AM PROVATION 03/08/2024 9:59 AM EDT Unknown GENERAL SURGICAL ORD ERABLES PROVATION * Basic Metabolic Panel (non-fasting) (01/04/2024 12:38 PM EST) Glucose Lvl 119 65 - 199 mg/dL [facility] Comment:Diabetes: >=200 mg/d L plus symptoms BUN 10 10 - 20 mg/dL [facility] Creatinine 0.82 0.80 - 1.50 mg/dL [facility] Sodium 142 135 - 145 mmol/L [facility] Potassium 4.4 3.5 - 5.0 mmol/L [facility] Comment: Please note: ??Patients with WBC >100,000 may have falsely elevated Potassium levels. ??For accurate Potassium quantification in these patients send serum separator tube (gold top) for subsequent determinations. ??Contact the Clinical Chemistry Laboratory if there are any questions. Chloride 105 98 - 107 mmol/L [facility] CO2 26 22 - 31 mmol/L [facility] Anion Gap 11 5 - 15 mmol/L [facility] Calcium 9.7 8.5 - 10.5 mg/dL [facility] Estimated GFR 104 >=60 mL/min/1. 73 m?? [facility] Comment: This patient's estimated GFR was calculated using the 2020 CKD-EPI equation. The estimated GFR can vary from the measured GFR by up to 30% in the absence of rapidly changing kidney function. Assessment of the estimated GFR is not appropriate when creatinine concentrations are rapidly changing. For clinical situations in which a more precise estimate of GFR is necessary, consider alternative methods of GFR estimation such as a 24-hour urine creatinine clearance. Assignment of CKD stage 1-5 for patients with an eGFR near the transition point between stages may be based on clinical assessment of muscle mass and symptoms in addition to eGFR. Blood 01/04/2024 12:3 8 PM EST 01/04/2024 1:08 PM EST Narrative Resulting Agency Comment Spec In Lab Pieter Rios III, MD CHEMISTRY ORDERABL ES [facility] [place] [address] from Last 3 Months or Most Recently Relevant to Health Maintenance Advance Directives * Attempt Cardiopulmonary Resuscitation - Inpatient (Latest Code Status on File) Date Activated Date Inactivated Comments 02/14/2021 9:57 PM 02/17/2021 6:00 PM Question Answer Comments Code Status decision made by: Patient * Attempt Cardiopulmonary Resuscitation - Inpatient Date Activated Date Inactivated Comments 01/10/2021 9:31 PM 01/13/2021 5:43 PM Question Answer Comments Code Status decision made by: Patient * Attempt Cardiopulmonary Resuscitation - Inpatient Date Activated Date Inactivated Comments 01/10/2021 10:25 AM 01/10/2021 9:30 PM Question Answer Comments Code Status decision made by: Patient * Attempt Cardiopulmonary Resuscitation - Inpatient Date Activated Date Inactivated Comments 2020 2:09 AM 12/19/2020 3:47 PM Question Answer Comments Code Status decision made by: Patient * Attempt Cardiopulmonary Resuscitation - Inpatient Date Activated Date Inactivated Comments 07/10/2020 9:52 AM 07/11/2020 1:40 PM Question Answer Comments Code Status decision made by: Patient Care Teams Communication Signals Intelligence Relationship Specialty Start Date End Date Amira Hooks PA [address] [place] [address] PCP - General Family Medicine 07/25/22
--- OUTSIDE RECORDS SUMMARY | 2024-06-04 20:40 | XMS_ITS | Encounter Summary ---
Author Organization [facility] Address [facility] [place] [address] Care Team Providers Care Biller Name Role Phone Amira Hooks Primary Care Provider Encounter Details Date Type Department Care Team (Late st Contact Info) Description 06/02/2024 Telephone [place] [phone] Shai Mckeon PA [facility] [place] [address] Social History Tobacco Use Types Packs/Day Years Used Date Smoking Tobacco: Former Cigarettes 1.5 15 1 99 - 2009 Smokeless Tobacco: Former Chew Quit: [...] encounter Miscellaneous Notes * Telephone Encounter - Shai Mckeon PA - 06/02/2024 4:38 PM EDT Called pt, he has a right ureteral stent since right URS/LL on 05/24. He sent a picture of pink tinged yellow urine through [facility] which he was anxious about. Continues totake tylenol for intermittent flank pain. Has not had any fevers. He is staying well hydrated. Earlier in the day pt had darker red urine that quickly resolved. Advised that he continue to stay hydrated. Call or seek care if with fevers/consistent dark red urine/clots, or if he is not able to void. Pt scheduled for stent removal on 06/11/24. Pt agreeable w/ plan. All questions answered. documented in this encounter Plan of Treatment Upcoming Encounters Date Type Department Care Team (Latest Contact Info) Description 06/07/2024 2:00 PM EDT Office [place] [address] Joan Castro MD [facility] [place] [address] 06/11/2024 1:03 PM EDT Hospital Encounter Main Operating Room [place] [phone] Rachel Carrasco MD [facility] [place] [address] 06/11/2024 1:03 PM EDT - 06/11/2024 1:58 PM EDT Surgery Main Operating Room [place] [phone] Rachel Carrasco MD [facility] [place] [address] CYSTO, REMOVAL OF STENT, FOREIGN BODY OR CALCULUS, SIMPLE (WRVU 2.81) 06/23/2024 10:00 AM EDT Office Visit Cardiology at [address] [place] [phone] Mo Horne MD [facility] [place] [address] Scheduled Procedures Name Priority Associated Diagnoses Date/Ti me CYSTO, REMOVAL OF STENT, FOR EIGN BODY OR CALCULUS, SIMPLE (WRVU 2.81) NEPHROLITHIASIS 06/11/2024 1:03 PM EDT documented as of this encounter Visit Diagnoses Not on filedocumented in this encounter Care Teams Biller Relationship Specialty Start Date End Date Amira Hooks PA [address] [place] [id number] PCP - General Family Medicine 07/25/22 documented as of this encounter
--- OUTSIDE RECORDS SUMMARY | 2024-06-04 20:40 | XMS_ITS | Encounter Summary ---
Author Organization [facility] Address [address] [place] [address] Care Team Providers Care Scoop Driver Name Role Phone Unavailable Primary Care Provider Unavailabl e Encounter Details Date Type Department Care Team (Late st Contact Info) Description 05/07/2020 Lab Requisition [facility] Pathology & Laboratory Medicine - [facility] [address] [place] [address] Outr Resulting Lab, Provider Social History Tobacco Use Types Packs/Day Years Used Date Smoking Tobacco: Never Assessed Sex and Gender Information Value Date Recorded Sex Assigned at Not on file Gender Identity Not on file Sexual Orientation Not on file documented as of this encounter Plan of Treatment Not on file documented as of this encounter Procedures Procedure Name Priority Date/Time Associated Diagnosis Comments ZZCOVID-19 TEST [facility] PCR Today 05/07/2020 5:10 EDT COVID-19 TESTING Routine 05/07/2020 5:10 EDT documented in this encounter Results * COVID-19 TEST [facility] PCR (05/07/2020 5:10 EDT) Swab ENTIRE NASOPHARYNX / Unknown 05/07/2020 5:10 EDT 05/07/2020 16:11 EDT Provider Outr Resulting Lab MICROBIOLOGY - GENERAL ORDERABLES [facility] [address] [place] [address] * COVID-19 TESTING (05/07/2020 5:10 EDT) COVID-19 rt-PCR Result Negative Negative 05/07/2020 20:19 EDT [facility] Comment: This test has not [...] history, and epidemiological information. Performed on the [employer] Fusion instrument Performing Lab [place] [facility] Lab 05/07/2020 20:19 EDT [facility] Swab 05/07/2020 5:10 EDT 05/07/2020 16:11 EDT Provider Outr Resulting Lab MICROBIOLOGY - GENERAL ORDERABLES [facility] [address] [place] [address] documented in this encounter Visit Diagnoses Not on filedocumented in this encounter
--- OUTSIDE RECORDS SUMMARY | 2024-06-04 20:41 | XMS_ITS | Encounter Summary ---
Author Organization [facility] Address [facility] [place] [address] Care Team Providers Care Utilization Management Um Nurse Name Role Phone Amira Hooks Primary Care Provider Encounter Details Date Type Department Care Team (Late st Contact Info) Description 03/24/2024 Telephone [place] [address] Rachel Carrasco MD [facility] [place] [address] Social History Tobacco Use Types Packs/Day Years Used Date Smoking Tobacco: Former Cigarettes 1.5 15 1 995 - 2009 Smokeless Tobacco: Former Chew Quit: 2013 Alcohol Use Standard Drinks/Week Comments No 0 (1 standard drink = 0.6 oz pur e alcohol) [facility] Inpatient Questions Answer Date Recorded Does Anyone Try to Keep You From Having Contact with Others or Doing Things Outside Your Home? no 04/06/2023 Feels Threatened by Someone no 03/11 Feels Unsafe at Home or Work/School no 04/06/2023 Physical Signs of Abuse Present no 04/06/2023 Sex and Gender Information Value Date Recorded Sex Assigned at Not on file Gender Identity Male 02/14/2021 11:07 PM EDT Sexual Orientation Not on file documented as of this encounter Miscellaneous Notes * Telephone Encounter - Rachel Carrasco MD - 03/24/2024 3:30 PM EDT Called Mr. Mcbride regarding opioid pain medications. I have relayed that given he was not on pain meds when his stone was diagnosed, he has minimal to no hydronephrosis on his CTU from 02/26/24 andthat I have offered to move his surgery up to Friday this week and he has deferred due to other commitments, that I do not think it is safe to prescribe additional opioid pain medications at this time. I have encouraged him to use non narcotic pain medications. We will continue to look for earlier OR time. I have counseled him to present to the ED if uncontrolled pain between now and then. Rachel Carrasco MD documented in this encounter Plan of Treatment Upcoming Encounters Date Type Department Care Team (Latest Contact Info) Description 06/07/2024 2:00 PM EDT Office Visit [place] [address] Joan Castro MD [facility] [place] [address] 06/11/2024 1:03 PM EDT Hospital Encounter Main Operating Room [place] [phone] Rachel Carrasco MD [facility] [place] [address] 06/11/2024 1:03 PM EDT - 06/11/2024 1:58 PM EDT Surgery [place] [phone] Rachel Carrasco MD [facility] [place] [address] CYSTO, REMOVAL OF STENT, FOREIGN BODY OR CALCULUS, SIMPLE (WRVU 2.81) 06/23/2024 10:00 AM EDT Office Visit Cardiology at [address] [place] [address] Mo Horne MD [facility] [place] [address] Scheduled Procedures Name Priority Associated Diagnoses Date/Ti me CYSTO, REMOVAL OF STENT, FOR EIGN BODY OR CALCULUS, SIMPLE (WRVU 2.81) NEPHROLITHIASIS 06/11/2024 1:03 PM EDT documented as of this encounter Visit Diagnoses Not on filedocumented in this encounter Care Teams Utilization Management Um Nurse Relationship Specialty Start Date End Date Amira Hooks PA [address] [place] [phone] PCP - General Family Medicine 07/25/22 documented as of this encounter
--- OUTSIDE RECORDS SUMMARY | 2024-06-04 20:41 | XMS_ITS | Encounter Summary ---
Author Organization [facility] Address [facility] [place] [address] Care Team Providers Care Stone Trimmer Name Role Phone Amira Hooks Primary Care Provider [phone] Encounter Details Date Type Department Care Team (Late st Contact Info) Description 02/24/2024 Orders [place] [address] [facility] [place] [address] Social History Tobacco Use Types Packs/Day Years Used Date Smoking Tobacco: Former Cigarettes 1.5 15 1 995 - 2009 Smokeless Tobacco: Former Chew Quit: 2014 Alcohol Use Standard Drinks/Week Comments No 0 (1 standard drink = 0.6 oz pur e alcohol) [facility] Inpatient Questions Answer Date Recorded [...] 2:00 PM EDT Office [place] [address] [facility] [place] [address] 06/11/2024 1:03 PM EDT Hospital Encounter Main Operating Room [place] [phone] [facility] [place] [address] 06/11/2024 1:03 PM EDT - 06/11/2024 1:58 PM EDT Surgery Main Operating Room [place] [phone] [facility] [place] [address] CYSTO, REMOVAL OF STENT, FOREIGN BODY OR CALCULUS, SIMPLE (WRVU 2.81) 06/23/2024 10:00 AM EDT Office Visit Cardiology at [address] [address] [facility] [place] [address] Scheduled Procedures Name Priority Associated Diagnoses Date/Ti me CYSTO, REMOVAL OF STENT, FOR EIGN BODY OR CALCULUS, SIMPLE (WRVU 2.81) NEPHROLITHIASIS 06/11/2024 1:03 PM EDT documented as of this encounter Visit Diagnoses Not on filedocumented in this encounter Care Teams Stone Trimmer Relationship Specialty Start Date End Date Amira Hooks PA [address] [place] [id number] PCP - General Family Medicine 07/25/22 documented as of this encounter
--- OUTSIDE RECORDS SUMMARY | 2024-06-04 20:41 | XMS_ITS | Encounter Summary ---
[place] [address] Care Team Providers Care Timber Estimator Name Role Phone Amira Hooks Primary Care Provider [phone] Encounter Details Date Type Department Care Team (Late st Contact Info) Description 04/08/2024 [place] [phone] Xenia Mcrae, RN Social History Tobacco Use Types Packs/Day Years Used Date Smoking Tobacco: Former Cigarettes 1.5 15 1 - 2009 Smokeless Tobacco: Former Chew Quit: 2013 Alcohol Use Standard Drinks/Week Comments No 0 (1 standard drink = 0.6 oz pur e alcohol) [facility] Inpatient Questions Answer Date Recorded Does Anyone [...] Progress Notes * Xenia Mcrae RN - 04/08/2024 2:50 PM EDT Call returned to patient, patient received a call from same day nurses with instructions about medshe can take prior to surgery tomorrow and was not sure about tylenol or oxycodone, he will call same day nurses to confirm. documented in this encounter Miscellaneous Notes * Telephone Encounter - Xenia Mcrae RN - 04/08/2024 2:46 PM EDT Copied from CRM #[id number]. Topic: Specialty Dept CRMs - Medication Issues >> April 08, 2024 2:27 PM Willie Webber wrote: Medication Issues Specialist Dr. Carrasco Relationship (if other than patient-full name): self Reason for call: Medication Issue (if symptom based used Triage Subtopic) Message/information for the nurse: Name of Medication: oxyCODONE (Roxicodone) 10 mg tablet *tylenol Issue with the medication: Patient is unsure if he can take oxycodone or tylenol before his surgerytomorrow. Please call to discuss. documented in this encounter Plan of Treatment Upcoming Encounters Date Type Department Care Team (Latest Contact Info) Description 06/07/2024 2:00 PM EDT Office [place] [phone] Joan Castro MD [facility] [place] [address] 06/11/2024 1:03 PM EDT Hospital Encounter [place] [phone] Rachel Carrasco MD [facility] [place] [address] 06/11/2024 1:03 PM EDT - 06/11/2024 1:58 PM EDT Surgery [place] [address] Rachel Carrasco MD [facility] [place] [address] CYSTO, REMOVAL OF STENT, FOREIGN BODY OR CALCULUS, SIMPLE (WRVU 2.81) 06/23/2024 10:00 AM EDT Office Visit Cardiology at [address] [place] [address] Mo Horne MD [facility] [place] [address] Scheduled Procedures Name Priority Associated Diagnoses Date/Ti me CYSTO, REMOVAL OF STENT, FOR EIGN BODY OR CALCULUS, SIMPLE (WRVU 2.81) NEPHROLITHIASIS 06/11/2024 1:03 PM EDT documented as of this encounter Visit Diagnoses Not on filedocumented in this encounter Care Teams Timber Estimator Relationship Specialty Start Date End Date Amira Hooks PA [address] [place] [phone] PCP - General Family Medicine 07/25/22 documented as of this encounter
--- OUTSIDE RECORDS SUMMARY | 2024-06-04 20:41 | XMS_ITS | Encounter Summary ---
Author Organization Formerly [facility] [place] [address] Care Team Providers Care Prepress Specialist Name Role Phone Amira Hooks Primary Care Provider Reason for Visit * Auth/Cert (Routine) Specialty Diagnoses / Procedures Referred By Zeyad mishra Referred To Contact Diagnoses LEFT URETERAL STONE/HEMATURIA WORK UP Procedures PRO CYSTOURETHROSCOPY PRO PLMT URTRL STENT PRQ PRE-EXISTING NFROS TRACT PRO CYSTO/URETERO/PYELOSCOPY W/LITHOTRIPSY CYSTO, CYSTOURETHROSCOPY, DIAGNOSTIC (WRVU 1.53) PLCMNT URETERAL STENT, PERC, IMG GUIDANCE; EXISTING NEPH TRACT (WRVU 3.96) CYSTOURETEROSCOPY, LITHOTRIPSY (WRVU 7.5) MODIFIER HOLMIUM LASER Rachel Carrasco MD [facility] [place] [address] [facility] Referral ID Status Reason Start Date Expiration Date Visits Re quested Visits Authorized [id number] 1 1 Encounter Details Date Type Department Care Team (Latest Contact Info) Description 04/09/2024 10:00 AM EDT - 04/09/2024 1:48 PM EDT Hospital En[place] [address] [facility] [place] [address] Hematuria, unspecified type Discharge Disposition: Home Social History Tobacco Use [...] Sign Reading Time Taken Comments Blood Pressure 140/76 04/09/2024 1:30 PM EDT Pulse 85 04/09/2024 10:49 AM EDT Temperature 36 ??C (96.8 ??F) 04/09/2024 1:30 PM EDT Respiratory Rate 16 04/09/2024 1:30 PM EDT Oxygen Saturation 95% 04/09/2024 1:30 PM EDT Inhaled Oxygen Concentration - - Weight 208.7 kg (460 lb) 04/09/2024 10:49 AM EDT Height 167.6 cm (5' 6) 04/09/2024 10:49 AM EDT Body Mass Index 74.25 04/09/2024 10:49 AM EDT documented in this encounter Discharge Instructions * Patient Instructions* Abelino Lazar MD - 04/09/2024 12:59 PM EDT Instructions following Cystoscopic Surgery Activity: As tolerated by your comfort level. Urination: You will likely have a small amount of blood in your urine for the next several days, upto 10-14 days. This is normal; however, if you are passing large amounts of blood clots or you are unable to urinate please call our office at [phone] before 5PM or [phone] after hours. Call Doctor for: Please call if you have copious blood in your urine, severe back or side pain, pain not controlled by pain medications, persistent nausea and vomiting, or for any fevers greater [id number] F. The number for questions is [phone] before 5 PM weekdays and [phone] after 5 PM and weekends. Pain Medication: You may use ibuprofen (motrin, advil) or acetaminophen (tylenol) if you are experiencing pain. We have sent flomax to your pharmacy to help with stent related discomfort. Follow-up: Follow up procedure in about 2-4 weeks for repeat URS has been requested. Please call the office ifyou do not hear back regarding this appointment. documented in this encounter Medications at Time [...] 03/02/2024 ipratropium (ATROVENT) 21 mcg (0.03 %) Coleman, Non-Aerosol INSTILL 2 SPRAYS VIA NOSTRILS AT [...] 3 times daily as needed for Anxiety. doxycycline (Avidoxy) 100 mg tabletIndications:Small intestinal bacterial overgrowth (SIBO) Take 1 tablet by mouth 2 times daily for 14 days. 28 tablet 03/26/2024 04/09/2024 neomycin (Mycifradin) 500 mg tabletIndications:Small intestinal bacterial overgrowth (SIBO) Take 1 tablet by mouth 2 times daily for 14 days. 28 tablet 03/26/2024 04/09/2024 oxyCODONE (Roxicodone) 10 mg tablet Take 1 tablet by mouth Three Times Daily for DHE. 02/06/2024 04/10/2024 documented as of this encounter H&P Notes * Abelino Lazar MD - 04/09/2024 10:42 AM EDT Urology H&P Rolo Aguilar is a 53 y.o. male with a history of gross hematuria with CT urogram showing 2mm right mid ureteral stone. He presents today for cysto and right URS/LL, possible right ureteral stent placement. There have been no changes to his history. Anticoagulation: none Urine cx: 02/16 MMF PMH: Past Medical History: Diagnosis Date A-fib Anxiety Arthritis CAD (coronary artery disease) Depression Flutter-fibrillation GERD (gastroesophageal reflux disease) Hepatitis HLD (hyperlipidemia) Hypertension Seizure PSH: Past Surgical History: Procedure Laterality Date CHOLECYSTECTOMY PRO LAP, CHOLECYSTECTOMY/GRAPH N/A 07/21/2018 LAPAROSCOPIC CHOLECYSTECTOMY WITH CHOLANGIOGRAM (WRVU 11.47) performed by Colt Hewitt MD [facility] MAIN OR PRO UNLISTED LAPAROSCOPIC PX LVR N/A 07/21/2018 LAPAROSCOPIC LIVER BIOPSY (WRVU 16.52) performed by Colt Hewitt MD at [facility] MAIN OR PRO UPPER GI ENDOSCOPY, BIOPSY N/A 12/29/2017 UPPER GASTROINTESTINAL ENDOSCOPY,WITH BIOPSY SINGLE OR MULTIPLE (WRVU 2.49) performed by Yusuf Tucker MD at [facility] ENDOSCOPY PRO UPPER GI ENDOSCOPY, BIOPSY N/A 03/08/2024 EGD WITH BIOPSY (WRVU 2.39) performed by Radu Silveira MD at [facility] ENDOSCOPY PRO UPPER GI ENDOSCOPY, DIAGNOSTIC N/A 12/29/2017 EGD, UPPER GI ENDOSCOPY performed by Yusuf Tucker MD at [facility] ENDOSCOPY TONSILLECTOMY Allergies: Allergies Allergen Reactions Adenosine Palpitations tachycardia Other reaction(s): Rapid heart beat PT had an adverse reaction HR went up to 250%27s Gabapentin Wellbutrin [Bupropion Hcl] Zoloft [Sertraline] No data found. Physical Exam: Gen: NAD CV: regular rate Pulm: CTAB, respiratory effort normal Labs: Recent Labs 01/04/24 1238 WBC 8.6 HGB 14.0 HCT 43.4 PLATELET 214 Recent Labs 01/04/24 1238 NA 142 K 4.4 CL 105 CO2 26 BUN 10 CREATININE 0.82 Micro: Lab Results Component Value Date URINECULTURE (A) 02/17/2024 10,000-49,000 cfu/ml mixed mucosal debbie Note: Culture shows multiple bacterial species suggesting mucosal contamination. A/P: 53 y.o. male who presents today for above procedures. All risks, benefits, and alternatives have been explained, and questions answered. Proceed with scheduled procedure. - Consent signed and placed in chart - Patient marked - Preop abx: rimma Lazar MD 04/09/2024 [id number] documented in this encounter Miscellaneous Notes * Op Note - Rachel Carrasco MD - 04/09/2024 11:54 AM EDT [facility] Operative Note Patient Name: Rolo Aguilar : [id number] MR#: [id number] Case Date: 04/09/2024 Surgeon: Surgeons and Role: * Rachel Carrasco MD - Primary * Abelino Lazar MD - Resident - Assisting Preoperative diagnosis: LEFT URETERAL STONE/HEMATURIA WORK UP Postoperative diagnosis: LEFT URETERAL STONE/HEMATURIA WORK UP Procedure(s) (LRB): CYSTO, STENT PLACEMENT (WRVU 2.82) (Right) Findings: - panurethral narrowing with concentric rings and white mucosa consistent with lichen sclerosis - very high bladder neck and stiff posterior urethra, difficult to enter bladder - normal diagnostic cystoscopy - pinpoint right ureteral orifice unable to accommodate flex-x flexible ureteroscope - 7F x 28cm right ureteral stent placement Anesthesia: General Estimated Blood Loss: 5 mL Specimens removed during surgery: none Drains: 7F x 28cm right ureteral stent placement Surgical Closure: n/a Disposition: awakened from anesthesia, extubated and taken to the recovery room in a stable condition, having suffered no apparent untoward event. Condition: doing well without problems (Please see the Surgical Encounter Summary for any Implant and Specimen details pertinent to this patient.) HPI/Surgical Indications: Rolo Aguilar is a 53 y.o. male with a history of gross hematuria with CT urogram showing 2mm right mid ureteral stone. He presents today for cysto and right URS/LL, possible right ureteral stent placement. There have been no changes to his history. Anticoagulation: none Urine cx: 02/16 MMF Procedure Description: The patient was identified in the pre-operative holding area. Consent was verified. The correct side of the procedure was marked. The patient was taken to the operating room and placed supine on the operating table. General anesthesia was induced. The patient was then moved to the dorsal lithotomy position and prepped and draped in the usual sterile fashion. A timeout was performed involving all members of the OR team confirming the patient's identity and planned procedure. Preoperative antibiotics were administered. A 22 Fr rigid cystoscope was inserted into the bladder. There was panurethral narrowing - concentric rings and whitish mucosa consistent with lichen sclerosis. The posterior urethra was tight and hada high bladder neck making entry into the bladder quite difficult. A diagnostic cystoscopy was completed with 70 degree lens that did not reveal and tumors, lesions, or stones. The right ureteral orifice was identified and a glide wire was cannulated through a 5F pollack. The pollack was removed. The cystoscope was removed. A semi rigid ureteroscope was inserted into the urethra however would notpass over the elevated bladder neck. The semi rigid ureteroscope was removed and the flex-x flexible ureteroscope was used to enter the bladder. The right ureteral orifice was identified and was pinpoint, it would not accept the flex-x freehand or over a glide wire. Therefore the decision was made to place a ureteral stent. The cystoscope was back loaded over the safety wire and the pollack was advanced to the renal pelvis. The wire was removed and a retrograde was completed to aid in stent placement. The wire was replaced and pollack removed. A 7F x 28cm ureteral stent was advanced over the wire with appropriate proximal and distal curls. The bladder was emptied. The cystoscope was removed. The patient tolerated the procedure well and was awakened from anesthesia with no adverse events. The patient was taken to the recovery area in stable condition. Dr. Carrasco, the attending surgeon, was present for the entire procedure. Surgical Infection Prevention Bundle Used? No Plan - URS/LL requested in 2-4wk Attestation: Case Date: 04/09/2024 I was present and I participated during the entire procedure (does not need to include opening and closing). Rachel Carrasco MD 04/09/2024 documented in this encounter Plan of Treatment Upcoming Encounters Date Type Department Care Team (Latest Contact Info) Description 06/07/2024 2:00 PM EDT Office [place] [phone] [facility] [place] [address] 06/11/2024 1:03 PM EDT Hospital Encounter [place] [phone] [facility] [place] [address] 06/11/2024 1:03 PM EDT - 06/11/2024 1:58 PM EDT Surgery [place] [phone] [facility] [place] [place] [address] CYSTO, REMOVAL OF STENT, FOREIGN BODY OR CALCULUS, SIMPLE (WRVU 2.81) 06/23/2024 10:00 AM EDT Office Visit Cardiology at [address] [place] [address] [facility] [place] [address] Scheduled Procedures Name Priority Associated Diagnoses Date/Ti me CYSTO, REMOVAL OF STENT, FOR EIGN BODY OR CALCULUS, SIMPLE (WRVU 2.81) NEPHROLITHIASIS 06/11/2024 1:03 PM EDT documented as of this encounter Procedures Procedure Name Priority Date/Time Associated Diagnosis Comments XR FLUORO NO RAD <1HR - OR USE Routine 04/09/2024 2:12 PM EDT Cystoscopy, Insert Ureteral Stent (48638) Yes 04/09/2024 11:16 AM EDT LEFT URETERAL STONE/HEMATURIA WORK UP HC CREATININE Routine 04/09/2024 11:01 AM EDT Hematuria, unspecified type IMPLANTABLE DEVICES SCAN 04/09/2024 12:00 AM EDT documented in this encounter Results * XR Fluoro No Rad <1Hr - OR Use (04/09/2024 2:12 PM EDT) Narrative Dicom, Auditing User - 04/09/2024 2:13 PM EDT This exam is auto-finalizing. No interpretation was done. Rachel Carrasco MD IMG FLUORO ORDERABLE S * Creatinine (04/09/2024 11:01 AM EDT) Creatinine 0.88 0.80 - 1.50 mg/dL [facility] Estimated GFR 102 >=60 mL/min/1. 73 m?? [facility] Comment: This patient's estimated GFR was [...] In Lab Rachel Carrasco MD CHEMISTRY ORDERABLES [facility] [place] [address] * Scan Doc: Implantable Devices (04/09/2024 12:00 AM EDT) Narrative 04/09/2024 12:00 AM EDT Ordered by an unspecified provider. Scanning Provider MEDIA MGR SCAN EXT O RDR/RSLT documented in this encounter Visit Diagnoses Diagnosis Hematuria, unspecified type documented in this encounter Active and Recently Administered Medications Times are shown in EDT. Continuous Medication Order 04/07/2024 04/08/2024 04/09/2024 lactated ringers infusion (CANCELED) 1,000 mL, at 100 mL/hr, Intravenous, CONTINUOUS, Starting on Fri04/09/24 at 1045, Until Fri04/09/24 at 1347, Day of Surgery (Day of Procedure) 1116 (New Bag - Prov ider: Marii Nieves CRNA)1307 (Anesthesia Volume Adjustment - Provider: Amarjit Beth MD) PRN Medication Order 04/07/2024 04/08/2024 04/09/2024 iohexoL (Omnipaque) (300 mg/mL) solution (CANCELED) PRN, Starting on Fri04/09/24 at 1207, Until Fri04/09/24 at 1411, Intra-Operative (Intra-Procedure), Routine 1207 (Given - Provid er: Rachel Carrasco MD - Comment: Omnipaque 50mL placed on sterile field for surigcal team to dilute and administer as needed.) documented in this encounter Care Teams Prepress Specialist Relationship Specialty Start Date End Date Amira Hooks PA [address] [place] [id number] PCP - General Family Medicine 07/25/22 documented as of this encounter
--- OUTSIDE RECORDS SUMMARY | 2024-06-04 20:41 | XMS_ITS | Encounter Summary ---
[place] [address] Care Team Providers Care Ice Cream Vault Worker Name Role Phone Amira Hooks Primary Care Provider Encounter Details Date Type Department Care Team (Late st Contact Info) Description 03/31/2024 [place] [address] Joss Johnson, RN Social History Tobacco Use Types Packs/Day Years Used Date Smoking Tobacco: Former Cigarettes 1.5 15 1 - 2009 Smokeless Tobacco: Former Chew Quit: 2013 Alcohol Use Standard Drinks/Week Comments No 0 (1 standard drink = 0.6 oz pur e alcohol) [facility] Inpatient Questions Answer Date Recorded Does [...] encounter Miscellaneous Notes * Telephone Encounter - Joss Johnson, RN - 03/31/2024 3:36 PM EDT Copied from CRM #[id number]. Topic: Specialty Dept CRMs - Triage >> March 31, 2024 2:38 PM Makayla Alejandre wrote: Triage Message Specialist: Rachel Carrasco MD Relationship (if other than patient-full name): Autumn Aguilar- spouse (no rep form on file) Symptom: Pain due to kidney stone Has patient experienced symptom before yes If patient has experienced symptom before, when was the last time this occurred 03/07 Is patient currently having symptom yes- mild When did symptom begin 03/16 Additional Comments: Patient was seen a [facility] on 03/16 for excruciating pain from a Kidney stone. The pain was so bad patient was having trouble breathing. Patient was prescribed oxycodone but has been denied to continue taking (see encounter from 03/24) Patient stated Tylenol does not touch it and is wondering if there is something he can be prescribed that will help until his surgery date on 04/09. Patient is on a blood thinner and can not take Ibuprofen. documented in this encounter Plan of Treatment Upcoming Encounters Date Type Department Care Team (Latest Contact Info) Description 06/07/2024 2:00 PM EDT Office Visit Gastroenterology at [address] Joan Castro MD [facility] [address] 06/11/2024 1:03 PM EDT Hospital Encounter Main Operating Room [place] [phone] Rachel Carrasco MD [facility] [place] [address] 06/11/2024 1:03 PM EDT - 06/11/2024 1:58 PM EDT Surgery Main Operating Room [place] [phone] Rachel Carrasco MD [facility] [place] [address] CYSTO, REMOVAL OF STENT, FOREIGN BODY OR CALCULUS, SIMPLE (WRVU 2.81) 06/23/2024 10:00 AM EDT Office Visit Cardiology at [address] [place] [address] Mo Horne MD [facility] [place] [address] Scheduled Procedures Name Priority Associated Diagnoses Date/Ti me CYSTO, REMOVAL OF STENT, FOR EIGN BODY OR CALCULUS, SIMPLE (WRVU 2.81) NEPHROLITHIASIS 06/11/2024 1:03 PM EDT documented as of this encounter Visit Diagnoses Not on filedocumented in this encounter Care Teams Ice Cream Vault Worker Relationship Specialty Start Date End Date Amira Hooks PA [address] [place] [id number] PCP - General Family Medicine 07/25/22 documented as of this encounter
--- OUTSIDE RECORDS SUMMARY | 2024-06-04 20:41 | XMS_ITS | Encounter Summary ---
Author Organization [facility] [place] [address] Care Team Providers Care Beet Worker Name Role Phone Amira Hooks Primary [...] 7.5) MODIFIER HOLMIUM LASER Rachel Carrasco MD [facility] [place] [address] [facility] Referral ID Status Reason Start Date Expiration Date Visits Re quested Visits Authorized [id number] 1 1 Encounter Details Date Type Department Care Team (Late st Contact Info) Description 04/09/2024 11:48 AM EDT - 04/09/2024 2:11 PM EDT Surgery [place] [phone] Rachel Carrasco MD [facility] [place] [address] CYSTO, STENT PLACEMENT (WRVU 2.82) Social History Tobacco Use Types Packs/Day Years [...] to urinate please call our office at [phone] before 5PM or [phone] after hours. Call Doctor for: Please call if you have copious blood in your urine, severe back or side pain, pain not controlled by pain medications, persistent nausea and vomiting, or for any fevers greater [id number] F. The number for questions is [phone] before 5 PM weekdays and [phone] after 5 PM and weekends. Pain Medication: [...] 03/02/2024 ipratropium (ATROVENT) 21 mcg (0.03 %) Mulga, Non-Aerosol INSTILL 2 SPRAYS VIA NOSTRILS AT [...] (WRVU 11.47) performed by Colt Hewitt MD [facility] MAIN OR PRO UNLISTED LAPAROSCOPIC PX LVR N/A 07/21/2018 LAPAROSCOPIC LIVER BIOPSY (WRVU 16.52) performed by Colt Hewitt MD at [facility] MAIN OR PRO UPPER GI ENDOSCOPY, BIOPSY N/A 12/29/2017 UPPER GASTROINTESTINAL ENDOSCOPY,WITH BIOPSY SINGLE OR MULTIPLE (WRVU 2.49) performed by Yusuf Tucker MD at [facility] ENDOSCOPY PRO UPPER GI ENDOSCOPY, BIOPSY N/A 03/08/2024 EGD WITH BIOPSY (WRVU 2.39) performed by Radu Silveira MD at [facility] ENDOSCOPY PRO UPPER GI ENDOSCOPY, DIAGNOSTIC N/A 12/29/2017 EGD, UPPER GI ENDOSCOPY performed by Yusuf Tucker MD at [facility] ENDOSCOPY TONSILLECTOMY Allergies: Allergies Allergen Reactions Adenosine [...] Carrasco MD - 04/09/2024 11:54 AM EDT [facility] Operative Note Patient Name: Rolo Aguilar : [id number] MR#: [id number] Case Date: 04/09/2024 Surgeon: Surgeons and Role: [...] 2:00 PM EDT Office [place] [phone] Joan Castro MD [facility] [place] [address] 06/11/2024 1:03 PM EDT Hospital Encounter [place] [phone] Rachel Carrasco MD [facility] [place] [address] 06/11/2024 1:03 PM EDT - 06/11/2024 1:58 PM EDT Surgery [place] [phone] Rachel Carrasco MD [facility] [place] [address] CYSTO, REMOVAL OF STENT, FOREIGN BODY OR CALCULUS, SIMPLE (WRVU 2.81) 06/23/2024 10:00 AM EDT Office Visit Cardiology at [address] [phone] Mo Horne MD [facility] [place] [address] Scheduled Procedures Name Priority Associated Diagnoses Date/Ti me CYSTO, REMOVAL OF STENT, FOR EIGN BODY OR CALCULUS, SIMPLE (WRVU 2.81) NEPHROLITHIASIS 06/11/2024 1:03 PM EDT documented as of this encounter Procedures Procedure Name Priority Date/Time Associated Diagnosis Comments XR FLUORO NO RAD <1HR - OR USE Routine 04/09/2024 2:12 PM EDT Cystoscopy, Insert Ureteral Stent ([id number]) Yes 04/09/2024 11:16 AM EDT LEFT URETERAL [...] EDT) Creatinine 0.88 0.80 - 1.50 mg/dL [facility] Estimated GFR 102 >=60 mL/min/1. 73 m?? [facility] Comment: This patient's estimated [...] In Lab Rachel Carrasco MD CHEMISTRY ORDERABLES [facility] [place] [address] * Scan Doc: Implantable Devices (04/09/2024 12:00 AM EDT) Narrative 04/09/2024 12:00 AM EDT Ordered by an unspecified provider. Scanning Provider MEDIA MGR SCAN EXT O RDR/RSLT documented in this encounter Visit Diagnoses Not on filedocumented in this encounter Administered Medications Inactive Administered Medications - up to 3 most recent administrations Medication Order MAR Action Action Date Dose Rate Site iohexoL (Omnipaque) (300 mg/mL) solution PRN, Starting on Fri04/09/24 at 1207, Until Fri04/09/24 at 1411, Intra-Operative (Intra-Procedure), Routine Given 04/09/2024 12:07 PM EDT 50 mLs 19- Surgical Site documented in this encounter Active and Recently [...] needed.) documented in this encounter Care Teams Beet Worker Relationship Specialty Start Date End Date Amira Hooks PA [address] [place] [id number] PCP - General Family Medicine 07/25/22 documented as of this encounter
--- OUTSIDE RECORDS SUMMARY | 2024-06-04 20:41 | XMS_ITS | Encounter Summary ---
Author Organization [place] [address] Care Team Providers Care Ict Trainer Name Role Phone Amira Hooks Primary Care Provider Reason for Referral * Diagnostic Test (Routine) - Closed Specialty Diagnoses / Procedures Referred By Contac t Referred To Contact Radiology Diagnoses Nephrolithiasis Procedures CT Urogram Abelino Lazar MD [facility] [place] [address] [facility] [place] [address] Referral ID Status Reason Start Date Expiration Date V isits Requested Visits Authorized [id number] Closed Specialty Service Requested 02/17/2024 08/18/2025 1 1 Reason for Visit * Diagnostic Test (Routine) - Closed Specialty Diagnoses / Procedures Referred By Zeyad t Referred To Contact Radiology Diagnoses Nephrolithiasis Procedures CT Urogram Abelino Lazar MD [facility] [place] [address] [facility] [place] [address] Referral ID Status Reason Start Date Expiration Date V isits Requested Visits Authorized [id number] Closed Specialty Service Requested 02/17/2024 08/18/2025 1 1 Encounter Details Date Type Department Care Team (Latest Contact Info) Description 02/26/2024 3:53 PM EDT - 02/26/2024 11:59 PM EDT Hospital Encounter CT Scan at [facility] [place] [address] Rachel Carrasco MD [facility] [place] [address] Nephrolithiasis Discharge Disposition: Home Social History Tobacco Use Types Packs/Day Years Used Date Smoking Tobacco: Former Cigarettes 1.5 15 1 - 2009 Smokeless Tobacco: Former Chew Quit: 2013 Alcohol Use Standard Drinks/Week Comments No 0 (1 standard drink = 0.6 oz pur e alcohol) [facility] Inpatient Questions Answer Date Recorded Does Anyone [...] Sign Reading Time Taken Comments Blood Pressure 196/67 02/26/2024 4:56 PM EDT Pulse - - Temperature - - Respiratory Rate - - Oxygen Saturation - - Inhaled Oxygen Concentration - - Weight 209.1 kg (461 lb) 02/26/2024 4:37 PM EDT Height - - Body Mass Index 74.41 11/26/2023 3:53 PM EST documented in this encounter Medications at Time of Discharge Medication Sig Dispensed Refills Start Date End Date sucralfate (Carafate) 1 gram tabletIndications:Dyspe psia Take 1 tablet by mouth 4 times daily. If needed for upper abdominal discomfort and burning. Administer on an empty stomach. Take at least 2 hours before and 2 hours after other medications to prevent problems with absorption. 120 tablet 3 03/26/2024 ipratropium (ATROVENT) 21 mcg (0.03 %) [place], Non-Aerosol INSTILL 2 SPRAYS VIA NOSTRILS AT [...] for 14 days. 28 tablet 03/26/2024 04/09/2024 sucralfate (Carafate) 1 gram tabletIndications:Dyspe psia Take 1 tablet by mouth 4 times daily. 120 tablet 3 03/26/2024 03/26/2024 oxyCODONE (Roxicodone) 10 mg tablet Take 1 tablet by mouth Three Times Daily for DHE. 02/06/2024 04/10/2024 documented as of this encounter Plan of Treatment Upcoming Encounters Date Type Department Care Team (Latest Contact Info) Description 06/07/2024 2:00 PM EDT Office [place] [address] Joan Castro MD [facility] [place] [place] [address] 06/11/2024 1:03 PM EDT Hospital Encounter Main [place] [phone] Rachel Carrasco MD [facility] [place] [address] 06/11/2024 1:03 PM EDT - 06/11/2024 1:58 PM EDT Surgery Main [place] [phone] Rachel Carrasco MD [facility] [place] [address] CYSTO, REMOVAL OF STENT, FOREIGN BODY OR CALCULUS, SIMPLE (WRVU 2.81) 06/23/2024 10:00 AM EDT Office Visit Cardiology at [address] [place] [phone] Mo Horne MD [facility] [place] [address] Scheduled Procedures Name Priority Associated Diagnoses Date/Ti me CYSTO, REMOVAL OF STENT, FOR EIGN BODY OR CALCULUS, SIMPLE (WRVU 2.81) NEPHROLITHIASIS 06/11/2024 1:03 PM EDT documented as of this encounter Procedures Procedure Name Priority Date/Time Associated Diagnosis Comments CT SCAN UROLOGY Routine 02/26/2024 5:00 PM EDT Nephrolithiasis documented in this encounter Results * CT Urogram (02/26/2024 5:00 PM EDT) WORKSTATION ID [id number] RAD Anatomical Region Laterality Modality Abdomen, Pelvis Computed Tomogra phy Impressions 02/27/2024 3:25 PM EDT 1. ??Unchanged position of a 2 mm right mid ureter calculus. No hydronephrosis. 2. ??Hepatic steatosis. Thank you for letting us participate in the care of this patient. ??If you are a health care provider and have any questions regarding this report, please contact the number below. ??For patients who have questions please contact the health health care / medical job titles that requested your imaging first. ? Narrative 02/27/2024 3:25 PM EDT EXAMINATION: CT UROGRAM CLINICAL HISTORY: hx stones, gross hematuria N20.0, Calculus of kidney TECHNIQUE: Helical CT of the abdomen and pelvis prior to and following the intravenous administration of contrast. Administered 110.0 ml of OMNIPAQUE 350.00 mg/ml. 3D VR and MIP images were reformatted on a separate workstation and reviewed as part of this study. COMPARISON: CT 12/24/2023 FINDINGS: Right kidney and ureter: Unchanged 2 mm right mid ureteral calculus. No hydronephrosis. No renal lesions. No filling defect or abnormal wall thickening in the collecting system. Left kidney and ureter: No calculi, hydronephrosis or hydroureter. No renal lesions. No filling defect or abnormal wall thickening in the collecting system. Urinary bladder: Normal. No calculi or mass. Lower chest: Normal. Liver: Diffuse low attenuation consistent with steatosis. Mildly enlarged measuring 19.2 cm in craniocaudal dimension. Bile ducts: Nondilated. Gallbladder: Absent. Pancreas: Normal. Spleen: Normal. Adrenals: Normal. Vasculature: Patent renal veins. No abdominal aortic aneurysm. Lymph Nodes: Mildly prominent sidra hepatis lymph node is favored reactive. Bowel: Nondilated small and large bowel. Normal appendix. Peritoneum and retroperitoneum: No free fluid or loculated fluid collection. No pneumoperitoneum. No mesenteric inflammation. Abdominal wall: Normal. Reproductive organs: Normal. Osseous structures: No suspicious lesions. Thoracolumbar degenerative disc disease. Procedure Note Jerri Portillo MD - 02/27/2024 EXAMINATION: CT UROGRAM CLINICAL HISTORY: hx stones, gross hematuria N20.0, Calculus of kidney TECHNIQUE: Helical CT of the abdomen and pelvis prior to and followingthe intravenous administration of contrast. Administered 110.0 ml ofOMNIPAQUE 350.00 mg/ml. 3D VR and MIP images were reformatted on a separateworkstation and reviewed as part of this study. COMPARISON: CT 12/24/2023 FINDINGS: Right kidney and ureter: Unchanged 2 mm right mid ureteral calculus. No hydronephrosis. No renal lesions. No filling defect or abnormal wallthickening in the collecting system. Left kidney and ureter: No calculi, hydronephrosis or hydroureter. Norenal lesions. No filling defect or abnormal wall thickening in the collectingsystem. Urinary bladder: Normal. No calculi or mass. Lower chest: Normal. Liver: Diffuse low attenuation consistent with steatosis. Mildlyenlarged measuring 19.2 cm in craniocaudal dimension. Bile ducts: Nondilated. Gallbladder: Absent. Pancreas: Normal. Spleen: Normal. Adrenals: Normal. Vasculature: Patent renal veins. No abdominal aortic aneurysm. Lymph Nodes: Mildly prominent sidra hepatis lymph node is favoredreactive. Bowel: Nondilated small and large bowel. Normal appendix. Peritoneum and retroperitoneum: No free fluid or loculated fluidcollection. No pneumoperitoneum. No mesenteric inflammation. Abdominal wall: Normal. Reproductive organs: Normal. Osseous structures: No suspicious lesions. Thoracolumbar degenerativedisc disease. IMPRESSION 1. Unchanged position of a 2 mm right mid ureter calculus. Nohydronephrosis. 2. Hepatic steatosis. Thank you for letting us participate in the care of this patient. If youare a health care provider and have any questions regarding this report,please contact the number below. For patients who have questions please contactthe health health care / medical job titles that requested your imaging first. Rachel Carrasco MD IMG CT ORDERABLES documented in this encounter Visit Diagnoses Diagnosis Nephrolithiasis Calculus of kidney documented in this encounter Administered Medications Inactive Administered Medications - up to 3 most recent administrations Medication Order MAR Action Action Date Dose Rate Site furosemide (Lasix) (10 mg/mL) injection 10 mg 10 mg, Intravenous, ONCE, 1 dose, On Candi 02/26/24 at 1700, Radiology Protocol Medication, Routine Given 02/26/2024 4:51 PM EDT 10 mg iohexoL (Omnipaque) (350 mg/mL) solution 0-200 mL 0-200 mL, Intravenous, ONCE PRN, 1 dose, Starting on Candi 02/26/24 at 1638, Until Candi 02/26/24 at 1639, Per Protocol, Warning Vesicant/Irritant Medication , Radiology Contrast, Routine Given 02/26/2024 4:39 PM EDT 110 mLs documented in this encounter Care Teams Ict Trainer Relationship Specialty Start Date End Date Amira Hooks PA [address] [address] PCP - General Family Medicine 07/25/22 documented as of this encounter
--- OUTSIDE RECORDS SUMMARY | 2024-06-04 20:41 | XMS_ITS | Encounter Summary ---
Author Organization [facility] Address [facility] [place] [address] Care Team Providers Care Paper Box Maker Name Role Phone Amira Hooks Primary Care Provider Encounter Details Date Type Department Care Team (Late st Contact Info) Description 03/08/2024 11:00 AM EDT - 03/08/2024 11:30 AM EDT [place] [address] Radu Silveira MD [facility] DR GASTR[place] [address] EGD WITH BIOPSY (WRVU 2.39) Social History Tobacco Use Types Packs/Day Years Used Date Smoking Tobacco: Former Cigarettes 1.5 15 1 - 2009 Smokeless Tobacco: Former Chew Quit: 2013 Tobacco Cessation:Counseling Given: Not Answered Alcohol Use Standard Drinks/Week Comments No 0 (1 standard drink = 0.6 oz pur e alcohol) [facility] Inpatient Questions Answer Date Recorded Does [...] Sign Reading Time Taken Comments Blood Pressure 134/68 03/08/2024 10:13 AM EDT Pulse 88 03/08/2024 10:13 AM EDT Temperature 36.6 ??C (97.8 ??F) 03/08/2024 10:13 AM E DT Respiratory Rate 14 03/08/2024 11:10 AM EDT Oxygen Saturation 97% 03/08/2024 11:04 AM EDT Inhaled Oxygen Concentration - - Weight 208.7 kg (460 lb) 03/08/2024 10:13 AM EDT Height - - Body Mass Index 74.25 11/26/2023 3:53 PM EST documented in this encounter Discharge Instructions * Discharge Instructions* Erich Umanzor RN - 03/08/2024 10:55 AM EDT Upper GI Endoscopy: What to Expect at Home Your Recovery You will be able to go home after your doctor or nurse checks to make sure you are not having any problems. You may have to stay overnight if you had treatment during the test. You may have a sore throat fora day or two after the test. This care sheet gives you a general idea about what to expect after the test. How can you care for yourself at home? Activity Rest when you feel tired. You can do your normal activities when it feels okay to do so. Diet Follow your doctor's directions for eating. Unless your doctor has told you not to, drink plenty of fluids. This helps to replace the fluids that were lost during the prep. Do not drink alcohol. Medicines Your doctor will tell you if and when you can restart your medicines. He or she will also give you instructions about taking any new medicines. If you take blood thinners, such as warfarin (Coumadin), clopidogrel (Plavix), or aspirin, be sure to talk to your doctor. He or she will tell you if and when to start taking those medicines again. Make sure that you understand exactly what your doctor wants you to do. If polyps were removed or a biopsy was done during the test, your doctor may tell you not to take aspirin or other anti-inflammatory medicines for a few days. These include ibuprofen (Advil, Motrin) and naproxen (Aleve). If you have a sore throat the day after the procedure, use an vyak-nfx-tejcffd spray to numb your throat. Sucking on throat lozenges and gargling with warm salt water may also help relieve your symptoms. Other instructions For your safety, do not drive or operate machinery until the medicine wears off and you can think clearly. Your doctor may tell you not to drive or operate machinery until the day after your test. Do not sign legal documents or make major decisions until the medicine wears off and you can think clearly. The anesthesia can make it hard for you to fully understand what you are agreeing to. Additional Information for Sedation Patients For patients who received sedation: You may have received medications before and/or during your procedure which effects your judgement and reaction time. Do not drive, operate machinery, drink alcoholic beverages or make important decisions for 24 hours. Be careful on stairs as you may be unsteady on your feet. You may eat a regular diet as tolerated. Do not smoke if you are alone. IV site: Slight redness or tenderness is normal, you can use a warm compress if you would like. If tenderness and/or redness increase or if foul drainage occurs, please contact your Doctor. Please call [phone] before 8pm Mon-Fri with problems, questions or concerns. If you call after 8pm or on weekends, call the Hospital at [phone] and ask to speak to the [employer] correctional treatment specialist and the catalyst recovery operator will contact that person for you. When should you call for help? Call [phone] anytime you think you may need emergency care. For example, call if: You passed out (lost consciousness). You pass maroon or bloody stools. You have trouble breathing. Call your doctor now or seek immediate medical care if: You have pain that does not get better after you take pain medicine. You are sick to your stomach or cannot drink fluids. You have new or worse belly pain. You have blood in your stools. You have a fever. You cannot pass stools or gas. Watch closely for changes in your health, and be sure to contact your doctor if you have any problems. Where can you learn more? [facility] View your After Visit Summary and more online at [email or web address] If you would like to provide feedback about your hospital experience, please call the Office of Patient and Family Relations at . If you have received this After Visit Summary in error, please immediately return it in person to the department, or notify the [facility] Privacy Office by calling toll free at between the hours of 8AM and 5PM to arrange for our retrieval of the documents at no cost to you. Content Version: 12.2 ?? [id number] [employer]. Care instructions adapted under license by [facility]. If you have questions about a medical condition or this instruction, always ask your healthcare professional. [employer] disclaims any warranty or liability for your use of this information. documented in this encounter Medications at Time [...] 03/02/2024 ipratropium (ATROVENT) 21 mcg (0.03 %) [place], Non-Aerosol INSTILL 2 SPRAYS VIA NOSTRILS AT [...] as of this encounter H&P Notes * Radu Silveira MD - 03/08/2024 10:26 AM EDT Procedure: egd Indication: bloating History of Present Illness: Rolo Aguilar is a 53 y.o. man with bloating, heartburn here for egd. Symptoms started after initiation of dulaglutide. Patient Active Problem List Diagnosis Code Coronary disease I25.10 Heart palpitations R00.2 Obesity E66.9 Essential hypertension I10 H/O cardiac radiofrequency ablation Z98.890 Flutter-fibrillation I48.91, I48.92 SVT (supraventricular tachycardia) I47.10 PAF (paroxysmal atrial fibrillation) I48.0 Bipolar disorder F31.9 Atrial flutter I48.92 Obstructive sleep apnea syndrome G47.33 Dyspepsia R10.13 Atrial fibrillation I48.91 Gastroesophageal reflux disease K21.9 Small intestinal bacterial overgrowth (SIBO) K63.8219 Medications: Reviewed in EDH Allergies Allergen Reactions Adenosine Palpitations tachycardia Other reaction(s): Rapid heart beat PT had an adverse reaction HR went up to 250%27s Gabapentin Wellbutrin [Bupropion Hcl] Zoloft [Sertraline] Social History/Family History: Reviewed in EDH. No changes Exam: Patient Vitals for the past 24 hrs: Temp Pulse Resp BP SpO2 O2 Device 03/08/24 1011 -- -- 18 -- -- -- 03/08/24 1013 36.6 ??C (97.8 ??F) 88 19 134/68 99 % CPAP Axox3, nad Anicteric, MMM CTAB RRR, no m/r/g abd soft nt nd +bs Assessment and Plan: Proceed with EGD: ASA Grade: ASA 3 - Patient with moderate systemic disease with functional limitations Mallampati score:IV (only hard palate visible) Sedation plan: MAC Risks and benefits of the procedure were discussed with the patient. Consent has been signed. Radu Silveira MD documented in this encounter Miscellaneous Notes * Op Note - Radu Silveira MD - 03/08/2024 10:47 AM EDT Operative Note Patient Name: Rolo Aguilar : [id number] MR#: [id number] Case Date: 03/08/2024 Surgeon: Surgeon(s) and Role: * Radu Silveira MD - Primary Procedure(s): EGD WITH BIOPSY (WRVU 2.39) Please see Provation report for details. documented in this encounter Plan of Treatment Upcoming Encounters Date Type Department Care Team (Latest Contact Info) Description 06/07/2024 2:00 PM EDT Office [place] [phone] Joan Castro MD [facility] [place]STROENTER[place] [address] 06/11/2024 1:03 PM EDT Hospital Encounter [place] [phone] Rachel Carrasco MD [facility] [place] [address] 06/11/2024 1:03 PM EDT - 06/11/2024 1:58 PM EDT Surgery Main Operating Room [place] [phone] Rachel Carrasco MD [facility] [place] [address] CYSTO, REMOVAL OF STENT, FOREIGN BODY OR CALCULUS, SIMPLE (WRVU 2.81) 06/23/2024 10:00 AM EDT Office Visit Cardiology at [address] [id number] Mo Horne MD [facility] [place] [address] (work) Scheduled Procedures Name Priority Associated Diagnoses Date/Ti me CYSTO, REMOVAL OF STENT, FOR EIGN BODY OR CALCULUS, SIMPLE (WRVU 2.81) NEPHROLITHIASIS 06/11/2024 1:03 PM EDT documented as of this encounter Procedures Procedure Name Priority Date/Time Associated Diagnosis Comments SPECIMEN TO PATHOLOGY Routine 03/08/2024 10:54 AM EDT SPECIMEN TO PATHOLOGY Routine 03/08/2024 10:54 AM EDT SPECIMEN TO PATHOLOGY Routine 03/08/2024 10:54 AM EDT SURGICAL PATHOLOGY REPORT Routine 03/08/2024 10:49 AM EDT Upper Gi Endoscopy, Biopsy ([id number]) 03/08/2024 10:38 AM EDT Dyspepsia Screening for colon cancer documented in this encounter Results * Specimen to Pathology (03/08/2024 10:54 AM EDT) AP Specimen 03/08/2024 10:5 4 AM EDT 03/08/2024 10:54 AM EDT Narrative [facility] - 03/08/2024 10:54 AM EDT Specimen requisition ordered. ??Separate Pathology report to follow Radu Silveira MD PATHOLOGY/CYTOLOGY O [place] Performing Organization Address [facility] [place] [address] * Specimen to Pathology (03/08/2024 10:54 AM EDT) AP Specimen 03/08/2024 10:5 4 AM EDT 03/08/2024 10:54 AM EDT Narrative [facility] - 03/08/2024 10:54 AM EDT Specimen requisition ordered. ??Separate Pathology report to follow Radu Silveira MD PATHOLOGY/CYTOLOGY O [place] Performing Organization Address [facility]/ZIP Co de Phone Number [facility] [place] [address] * Specimen to Pathology (03/08/2024 10:54 AM EDT) AP Specimen 03/08/2024 10:5 4 AM EDT 03/08/2024 10:54 AM EDT Narrative [facility] - 03/08/2024 10:54 AM EDT Specimen requisition ordered. ??Separate Pathology report to follow Radu Silveira MD PATHOLOGY/CYTOLOGY O RDERABLES [facility] [place] [address] * Surgical Pathology Report (03/08/2024 10:49 AM EDT) FINAL DIAGNOSIS (AP) ? Location: 4T; EA11; A The signing [...] negative for diagnostic abnormality. Electronically signed by: ?Gifty PANDEY, Tyson Verified: ??03/19/2024 15:53 ??Pathologist Performed at: ??-[facility] Dept. of Pathology, [place] [address] Cigarette Catcher: Rosendo Hawkins MD, FCAP, ??CLIA Certificate: [id number] SPECIMEN(S) SUBMITTED A - duodenal biopsies, biopsy [...] labeled C1. ??sdy 03/19/2024 3:53 PM EDT [facility] 03/08/2024 10:4 9 AM EDT Radu Silveira MD PATHOLOGY/CYTOLOGY O RDERABLES [facility] [place] [address] documented in this encounter Visit Diagnoses Diagnosis Dyspepsia Dyspepsia and other specified disorders of function of stomach Screening for colon cancer Special screening for malignant neoplasms, colon documented in this encounter Administered Medications Inactive Administered Medications - up to 3 most recent administrations Medication Order MAR Action Action Date Dose Rate Site lactated ringers infusion 100 mL/hr, Intravenous, CONTINUOUS, Starting on 03/08/24 at 1030, Until Fri03/08/24 at 1125, Day of Surgery (Day of Procedure) Restarted 03/08/2024 10:35 AM EDT New Bag 03/08/2024 10:30 AM EDT 100 mL/hr 100 mL/hr documented in this encounter Active and Recently Administered Medications Times are shown in EDT. Continuous Medication Order 03/06/2024 03/07/2024 03/08/2024 lactated ringers infusion (CANCELED) 100 mL/hr, Intravenous, CONTINUOUS, Starting on Fri03/08/24 at 1030, Until Fri03/08/24 at 1125, Day of Surgery (Day of Procedure) 1030 (New Bag - Prov ider: Viola Llamas RN)1034 (Paused - Provider: Ava Morris CRNA - Comment: Switch to gravity)1035 (Restarted - Provider: Ava Morris CRNA)1056 (Stopped - Provider: Ava Morris CRNA) documented in this encounter Care Teams Paper Box Maker Relationship Specialty Start Date End Date Amira Hooks PA [address] [place] [phone] PCP - General Family Medicine 07/25/22 documented as of this encounter
--- OUTSIDE RECORDS SUMMARY | 2024-06-04 20:41 | XMS_ITS | Encounter Summary ---
[place] [address] Care Team Providers Care Guidance Services Coordinator Name Role Phone Amira Hooks Primary Care Provider Encounter Details Date Type Department Care Team (Late st Contact Info) Description 04/01/2024 [place] [address] Michelle Reed, RN Social History Tobacco Use Types Packs/Day Years Used Date Smoking Tobacco: Former Cigarettes 1.5 15 1 - 2009 Smokeless Tobacco: Former Chew Quit: 2013 Alcohol Use Standard Drinks/Week Comments No 0 (1 standard drink = 0.6 oz pur e alcohol) [facility] Inpatient Questions Answer Date Recorded Does [...] Telephone Encounter - Michelle Reed RN - 04/01/2024 2:12 PM EDT Attempted to contact patient with no answer. Left message on personal voicemail to advise patient to hold Eliquis 48 hours prior to procedure on 04/09 Will also send message to patient through [facility] * Telephone Encounter - Michelle Reed RN - 04/01/2024 2:10 PM EDT ----- Message from Rachel Carrasco sent at 04/01/2024 10:42 AM EDT ----- Regarding: RE: dos 04/09 Correction - he should hold for 48 hrs - in case of biopsy - due to gross hematuria - thanks ----- Message ----- From: Michelle Reed RN Sent: 04/01/2024 9:26 AM EDT To: Rachel Carrasco MD Subject: FW: dos 04/09 Patient does not need to hold eliquis for cysto/URS on 04/09 does he? ----- Message ----- From: Gabriel Jensen RN Sent: 04/01/2024 7:06 AM EDT To: [facility] [place] [facility] [place] Subject: dos 04/09 Good morning, In checking the chart we found no pre-op instructions for Eliquis. Please contact the patient directly with instructions if necessary. Thank you, Gabriel ALEJANDRO PCC documented in this encounter Plan of Treatment Upcoming Encounters Date Type Department Care Team (Latest Contact Info) Description 06/07/2024 2:00 PM EDT Office [place] [address] Joan Castro MD [facility] [place] [address] 06/11/2024 1:03 PM EDT Hospital Encounter [place] [address] Rachel Carrasco MD [facility] [place] [address] 06/11/2024 1:03 PM EDT - 06/11/2024 1:58 PM EDT Surgery [place] [address] Rachel Carrasco MD [facility] [place] [address] CYSTO, REMOVAL OF STENT, FOREIGN BODY OR CALCULUS, SIMPLE (WRVU 2.81) 06/23/2024 10:00 AM EDT Office Visit Cardiology at [address] [place] [address] Mo Horne MD [facility] [place] [address] Scheduled Procedures Name Priority Associated Diagnoses Date/Ti me CYSTO, REMOVAL OF STENT, FOR EIGN BODY OR CALCULUS, SIMPLE (WRVU 2.81) NEPHROLITHIASIS 06/11/2024 1:03 PM EDT documented as of this encounter Visit Diagnoses Not on filedocumented in this encounter Care Teams Guidance Services Coordinator Relationship Specialty Start Date End Date Amira Hooks PA [address] [place] [address] PCP - General Family Medicine 07/25/22 documented as of this encounter
--- OUTSIDE RECORDS SUMMARY | 2024-06-04 20:41 | XMS_ITS | Encounter Summary ---
Author Organization [facility] [place] [address] Care Team Providers Care Small Products I Assembler Name Role Phone Amira Hooks Primary Care Provider Encounter Details Date Type Department Care Team (Late st Contact Info) Description 04/02/2024 [place] [address] Michelle Reed, RN Social History Tobacco Use [...] 2:00 PM EDT Office [place] [address] Joan Castro MD [facility] [place] [address] 06/11/2024 1:03 PM EDT Hospital Encounter [place] [phone] Rachel Carrasco MD [facility] [place] [place] [address] 06/11/2024 1:03 PM EDT - 06/11/2024 1:58 PM EDT Surgery Main Operating Room [place] [phone] Rachel Carrasco MD [facility] [place] [address] CYSTO, REMOVAL OF STENT, FOREIGN BODY OR CALCULUS, SIMPLE (WRVU 2.81) 06/23/2024 10:00 AM EDT Office Visit Cardiology at [address] [place] [address] Mo Horne MD [facility] [place] [address] Scheduled Procedures Name Priority Associated Diagnoses Date/Ti me CYSTO, REMOVAL OF STENT, FOR EIGN BODY OR CALCULUS, SIMPLE (WRVU 2.81) NEPHROLITHIASIS 06/11/2024 1:03 PM EDT documented as of this encounter Visit Diagnoses Not on filedocumented in this encounter Care Teams Small Products I Assembler Relationship Specialty Start Date End Date Amira Hooks PA [address] [place] [address] PCP - General Family Medicine 07/25/22 documented as of this encounter
--- OUTSIDE RECORDS SUMMARY | 2024-06-04 20:41 | XMS_ITS | Encounter Summary ---
[place] [address] Care Team Providers Care It Teacher Name Role Phone Amira Hooks Primary Care Provider Reason for Visit * Reason Onset Date Comments Triage 03/31/2024 Flank pain Encounter Details Date Type Department Care Team (Late st Contact Info) Description 03/31/2024 [place] [phone] Joss Johnson, combo welder (Flank pain) Social History Tobacco Use Types Packs/Day Years Used Date Smoking Tobacco: Former Cigarettes 1.5 15 1 - 2009 Smokeless Tobacco: Former Chew Quit: 2013 Alcohol Use Standard Drinks/Week Comments No 0 (1 standard drink = 0.6 oz pur e alcohol) [facility] Inpatient Questions Answer Date Recorded Does [...] encounter Miscellaneous Notes * Telephone Encounter - Nathen Yanez MD - 03/31/2024 4:33 PM EDT If pain is truly uncontrolled patient would need to go to ED for in person evaluation. Last imagingshowed small stone without signs of obstruction so if that has changed then he would need additional workup before prescribing narcotic pain regimen. * Telephone Encounter - Joss Johnson RN - 03/31/2024 3:37 PM EDT Reason for Call: Triage (Flank pain) Brief Health History (Onset, Location, Duration, Characteristics, Aggravating Factors, Relieving Factors/Radiation,Timing, and Severity): Copied from CRM:Pain due to kidney stone symptom begin 03/16. Patient was seen a [facility] on 03/16 for excruciating pain [...] blood thinner and can not take Ibuprofen. Spoke to patient and his , Autumn, who explained this patient is still experiencing kidney stone pain. She said that she had to take him to the emergency room on 03/16 because he couldn't walk due tothe severity of his pain. He stated that he spoke to Dr. Carrasco last week who told him to use Tylenol and Ibuprofen for his pain. He said that he was told by his stripper and opaquer apprentice that he cannot take Ibuprofen because he is on Eliquis. He stated that his pain is a 5 or 6 out of 10 in severity without activity. He said his pain is located on the right side of his lower back sometimes can be on either side or in his groin area. He said that his pain goes up with any activity. He stated that he has tried a heating pad and is taking the maximum daily dose of Tylenol but it is not working to relieve his pain. I explained that Dr. Carrasco had decided not to prescribe him any opioid pain medication after consideration of his CT and other reasons. I advised him to go to the emergency room if he experiences severe uncontrolled pain. I also advised him that all I can do is forward his request again for review. Worsening Symptoms: Emphasized symptoms that require emergent/urgent care according to EPIC protocol utilized or other documented decision support tool. Patient able to teach back worsening symptoms and action to take. Patient/Caregiver demonstrates understanding via teach back: Yes Disposition: Notified provider * Telephone Encounter - Joss Johnson RN - 03/31/2024 3:37 PM EDT Copied from [facility] #[id number]. Topic: Specialty Dept CRMs - Triage >> [...] 03/16 Additional Comments: Patient was seen a [facility] on 03/16 for excruciating pain [...] 2:00 PM EDT Office [place] [phone] Joan Castro MD [facility] [place] [address] 06/11/2024 1:03 PM EDT Hospital Encounter [place] [address] Rachel Carrasco MD [facility] [place] [address] 06/11/2024 1:03 PM EDT - 06/11/2024 1:58 PM EDT Surgery [place] [phone] Rachel Crarasco MD [facility] [place] [address] CYSTO, REMOVAL OF STENT, FOREIGN BODY OR CALCULUS, SIMPLE (WRVU 2.81) 06/23/2024 10:00 AM EDT Office Visit Cardiology at [address] [address] Mo Horne MD [facility] [place] [address] Scheduled Procedures Name Priority Associated Diagnoses Date/Ti me CYSTO, REMOVAL OF STENT, FOR EIGN BODY OR CALCULUS, SIMPLE (WRVU 2.81) NEPHROLITHIASIS 06/11/2024 1:03 PM EDT documented as of this encounter Visit Diagnoses Not on filedocumented in this encounter Care Teams It Teacher Relationship Specialty Start Date End Date Amira Hooks PA [address] [place] [address] PCP - General Family Medicine 07/25/22 documented as of this encounter
--- OUTSIDE RECORDS SUMMARY | 2024-06-04 20:41 | XMS_ITS | Encounter Summary ---
Author Organization [facility] [place] [address] Care Team Providers Care Core Fitter Name Role Phone Amira Hooks Primary Care Provider Encounter Details Date Type Department Care Team (Latest Contact Info) Description 02/26/2024 Travel Social History Tobacco Use Types Packs/Day [...] 2:00 PM EDT Office Visit [place] [address] Joan Castro MD [facility] [place] [address] 06/11/2024 1:03 PM EDT Hospital Encounter [place] [phone] Rachel Carrasco MD [facility] [place] [address] 06/11/2024 1:03 PM EDT - 06/11/2024 1:58 PM EDT Surgery [place] [phone] Rachel Carrasco MD [facility] [place] [address] CYSTO, REMOVAL OF STENT, FOREIGN BODY OR CALCULUS, SIMPLE (WRVU 2.81) 06/23/2024 10:00 AM EDT Office Visit Cardiology at [address] [address] Mo Horne MD [facility] [place] [address] Scheduled Procedures Name Priority Associated Diagnoses Date/Ti me CYSTO, REMOVAL OF STENT, FOR EIGN BODY OR CALCULUS, SIMPLE (WRVU 2.81) NEPHROLITHIASIS 06/11/2024 1:03 PM EDT documented as of this encounter Visit Diagnoses Not on filedocumented in this encounter Care Teams Core Fitter Relationship Specialty Start Date End Date Amira Hooks PA [address] [place] [address] PCP - General Family Medicine 07/25/22 documented as of this encounter
--- OUTSIDE RECORDS SUMMARY | 2024-06-04 20:41 | XMS_ITS | Encounter Summary ---
[place] [address] Care Team Providers Care Kerrick Kleaner Operator Name Role Phone Amira Hooks Primary Care Provider Encounter Details Date Type Department Care Team (Late st Contact Info) Description 03/05/2024 Telephone [place] [address] Salima Pereira Social History Tobacco Use Types Packs/Day Years Used Date Smoking Tobacco: Former Cigarettes 1.5 15 1 - 2009 Smokeless Tobacco: Former Chew Quit: 2013 Alcohol Use Standard Drinks/Week Comments No 0 (1 standard drink = 0.6 oz pur e alcohol) [facility] Inpatient Questions Answer Date Recorded Does [...] encounter Miscellaneous Notes * Telephone Encounter - Salima Pereira - 03/05/2024 9:38 AM EDT Left message. Dr Castro wanted to offer him an appointment with either Maryanne or Hedy for 3 weeks after his endoscopy (03/09) if he wanted documented in this encounter Plan of Treatment Upcoming Encounters Date Type Department Care Team (Latest Contact Info) Description 06/07/2024 2:00 PM EDT Office [place] [phone] Joan Castro MD [facility] [place] [address] 06/11/2024 1:03 PM EDT Hospital Encounter [place] [phone] Rachel Carrasco MD [facility] [place] [address] 06/11/2024 1:03 PM EDT - 06/11/2024 1:58 PM EDT Surgery [place] [phone] Rachel Carrasco MD [facility] [place] [address] CYSTO, REMOVAL OF STENT, FOREIGN BODY OR CALCULUS, SIMPLE (WRVU 2.81) 06/23/2024 10:00 AM EDT Office Visit Cardiology at [address] [place] [address] Mo Horne MD [facility] [place] [address] Scheduled Procedures Name Priority Associated Diagnoses Date/Ti me CYSTO, REMOVAL OF STENT, FOR EIGN BODY OR CALCULUS, SIMPLE (WRVU 2.81) NEPHROLITHIASIS 06/11/2024 1:03 PM EDT documented as of this encounter Visit Diagnoses Not on filedocumented in this encounter Care Teams Kerrick Kleaner Operator Relationship Specialty Start Date End Date Amira Hooks PA [address] [place] [address] PCP - General Family Medicine 07/25/22 documented as of this encounter
--- OUTSIDE RECORDS SUMMARY | 2024-06-04 20:41 | XMS_ITS | Encounter Summary ---
Author Organization [facility] [place] [address] Care Team Providers Care Farmer General Name Role Phone Amira Hooks Primary Care Provider Encounter Details Date Type Department Care Team (Latest Contact Info) Description 02/16/2024 Travel Social History Tobacco Use Types Packs/Day Years Used Date Smoking Tobacco: Former Cigarettes 1.5 15 1 995 - 2009 Smokeless Tobacco: Former Chew Quit: 2013 Alcohol Use Standard Drinks/Week Comments No 0 (1 standard drink = 0.6 oz pur e alcohol) [facility] Inpatient Questions Answer Date Recorded Does Anyone [...] 2:00 PM EDT Office [place] [address] Joan Castro MD [facility] [place] [address] 06/11/2024 1:03 PM EDT Hospital Encounter [place] [phone] Rachel Carrasco MD [facility] [place] [address] 06/11/2024 1:03 PM EDT - 06/11/2024 1:58 PM EDT Surgery [place] [phone] Rachel Carrasco MD [facility] [place] [address] CYSTO, REMOVAL OF STENT, FOREIGN BODY OR CALCULUS, SIMPLE (WRVU 2.81) 06/23/2024 10:00 AM EDT Office Visit Cardiology at [address] [address] Mo Horne MD [facility] [place] [address] Scheduled Procedures Name Priority Associated Diagnoses Date/Ti me CYSTO, REMOVAL OF STENT, FOR EIGN BODY OR CALCULUS, SIMPLE (WRVU 2.81) NEPHROLITHIASIS 06/11/2024 1:03 PM EDT documented as of this encounter Visit Diagnoses Not on filedocumented in this encounter Care Teams Farmer General Relationship Specialty Start Date End Date Amira Hooks PA [address] [place] [address] PCP - General Family Medicine 07/25/22 documented as of this encounter
--- OUTSIDE RECORDS SUMMARY | 2024-06-04 20:41 | XMS_ITS | Encounter Summary ---
Author Organization [facility] [place] [address] Care Team Providers Care Emergency Spill Response Technician Name Role Phone Amira Hooks Primary Care Provider Encounter Details Date Type Department Care Team (Late st Contact Info) Description 01/16/2024 12:02 PM EST Anesthesia Event [place] [address] Jesse Ellis MD [facility] [place] [address] Willie Gonzalez CRNA [facility] [place] [address] Anesthesia Record Procedure Summary Procedure Name Responsible Anesthesiologist Anesthesia Start Time Anesthesia Stop Time EGD, UPPER GI ENDOSCOPY (WRVU 2.09) (Trunk) Events Date Time Event Comment 01/16/2024 1115 Meds * Agents No agents on file. * Blood No blood administrations on file. Lines, Drains, and Airways Type Details Placement Removal Incision 05/24/24; 08; penis 05/24/24 0828 by Ivonne Davila RN documented in this encounter Social History Tobacco [...] of this encounter OR Notes * Anesthesia Preprocedure Evaluation - Jesse Ellis MD - 01/16/2024 10:47 AM EST Pre-Anesthesia Evaluation for: Rolo Aguilar a 53 y.o. male. Procedure(s): EGD, UPPER GI ENDOSCOPY (WRVU 2.09) COLONOSCOPY, DIAGNOSTIC (WRVU 3.26) Patient Active Problem List Diagnosis Date Noted ??? Gastroesophageal reflux disease 11/28/2023 ??? Obstructive sleep apnea syndrome 09/18/2022 ??? Dyspepsia 09/18/2022 ??? Atrial flutter 02/14/2021 ??? Bipolar disorder 01/03/2021 ??? SVT (supraventricular tachycardia) 12/21/2020 ??? PAF (paroxysmal atrial fibrillation) 12/21/2020 ??? Flutter-fibrillation 2020 ??? Atrial fibrillation 11/28/2020 ??? H/O cardiac radiofrequency ablation 07/10/2020 ??? Coronary disease 07/29/2019 ??? Heart palpitations 07/29/2019 ??? Obesity 07/29/2019 ??? Essential hypertension 07/29/2019 Past Medical History: Diagnosis Date ??? A-fib ??? Anxiety ??? Arthritis ??? CAD (coronary artery disease) ??? Depression ??? Flutter-fibrillation ??? GERD (gastroesophageal reflux disease) ??? Hepatitis ??? HLD (hyperlipidemia) ??? Hypertension ??? Seizure Past Surgical History: Procedure Laterality Date ??? CHOLECYSTECTOMY ??? PRO LAP, CHOLECYSTECTOMY/GRAPH N/A 07/21/2018 LAPAROSCOPIC CHOLECYSTECTOMY WITH CHOLANGIOGRAM (WRVU 11.47) performed by Laycock, Colt S, MD [facility] MAIN OR ??? PRO UNLISTED LAPAROSCOPIC PX LVR N/A 07/21/2018 LAPAROSCOPIC LIVER BIOPSY (WRVU 16.52) performed by Colt Hewitt MD at [facility] MAIN OR ??? PRO UPPER GI ENDOSCOPY, BIOPSY N/A 12/29/2017 UPPER GASTROINTESTINAL ENDOSCOPY,WITH BIOPSY SINGLE OR MULTIPLE (WRVU 2.49) performed by Yusuf Tucker MD at [facility] ENDOSCOPY ??? PRO UPPER GI ENDOSCOPY, DIAGNOSTIC N/A 12/29/2017 EGD, UPPER GI ENDOSCOPY performed by Yusuf Tucker MD at [facility] ENDOSCOPY ??? TONSILLECTOMY Social History Tobacco Use ??? Smoking status: Former Packs/day: 1.50 Years: 15.00 Additional pack years: 0.00 Total pack years: 22.50 Types: Cigarettes Quit date: 2009 Years since quittin.1 ??? Smokeless tobacco: Former Types: Chew Quit date: 2013 Substance Use Topics ??? Alcohol use: No Social History Substance and Sexual Activity Drug Use Yes ??? Types: Marijuana Comment: medical MJ Allergies Allergen Reactions ??? Adenosine Palpitations tachycardia Other reaction(s): Rapid heart beat PT had an adverse reaction HR went up to 250%27s ??? Gabapentin ??? Wellbutrin [Bupropion Hcl] ??? Zoloft [Sertraline] Medications: MAR and/or home medications have been reviewed. Physical Exam: Preprocedure Vitals Current as of 01/16/24 1047 No BP, pulse, respiration, SpO2, or temperature recorded. Height: 167.6 cm (5' 6) (11/26/23) Weight: 211.7 kg (466 lb 12.8 oz) (11/26/23) BMI: 75.34 IBW: 63.8 kg (140 lb 9.2 oz) Airway Assessment: Mallampati: II TM distance: >3 FB Neck ROM: full Cardiovascular Assessment: Rhythm: regular Rate: normal Pulmonary Assessment: unlabored breathing pulmonary exam normal Dental Assessment: Misc Assessment: Patient is wearing No contact(s). IV access: Peripheral line Last Filed Perioperative Cognitive Screening None Anesthesia Plan: ASA 2 MAC, with a(n) intravenous induction 53-year-old 2011.7 kg M with PMH: Obesity (BMI: 75.34 kg/m??), asthma (ipratropium, albuterol), CHF(torsemide), atrial fibrillation (apixaban, metoprolol), HTN (lisinopril), ASCVD (ASA, NTG), HLD (atorvastatin), GERD (dexlansoprazole), anxiety (clonazepam, lamotrigine), patient presents here todayfor EGD and colonoscopy. Allergies: Adenosine, gabapentin, Wellbutrin, Zoloft NPO status: Appropriate Plan: MAC, PIV x 1, standard ASA monitors Region - Other Informed Consent: Anesthetic plan and risks discussed with patient. Plan discussed with MENTAL HEALTH TECHNICIAN and attending. Anesthesia Screening documented in this encounter Plan of Treatment Upcoming Encounters Date Type Department Care Team (Latest Contact Info) Description 06/07/2024 2:00 PM EDT Office Visit [place] [phone] Joan Castro MD [facility] [place] [address] 06/11/2024 1:03 PM EDT Hospital Encounter Main Operating Room [place] [phone] Rachel Carrasco MD [facility] [place] [address] 06/11/2024 1:03 PM EDT - 06/11/2024 1:58 PM EDT Surgery [place] [phone] Rachel Carrasco MD [facility] [address] CYSTO, REMOVAL OF STENT, FOREIGN BODY OR CALCULUS, SIMPLE (WRVU 2.81) 06/23/2024 10:00 AM EDT Office Visit Cardiology at [address] [place] [address] Mo Horne MD [facility] [place] [place] [address] Scheduled Procedures Name Priority Associated Diagnoses Date/Ti me CYSTO, REMOVAL OF STENT, FOR EIGN BODY OR CALCULUS, SIMPLE (WRVU 2.81) NEPHROLITHIASIS 06/11/2024 1:03 PM EDT documented as of this encounter Visit Diagnoses Not on filedocumented in this encounter Care Teams Emergency Spill Response Technician Relationship Specialty Start Date End Date Amira Hooks PA [address] [place] [address] PCP - General Family Medicine 07/25/22 documented as of this encounter
--- OUTSIDE RECORDS SUMMARY | 2024-06-04 20:41 | XMS_ITS | Encounter Summary ---
Author Organization [facility] [place] [address] Care Team Providers Care Applied Research Director Name Role Phone Amira Hooks Primary Care Provider [phone] Encounter Details Date Type Department Care Team (Latest Contact Info) Description 02/07/2024 Travel Social History Tobacco Use Types Packs/Day Years Used Date Smoking Tobacco: Former Cigarettes 1.5 15 1 995 - 2009 Smokeless Tobacco: Former Chew Quit: 2013 Alcohol Use Standard Drinks/Week Comments No 0 (1 standard drink = 0.6 oz pur e alcohol) [facility] Inpatient Questions Answer Date Recorded Does Anyone [...] 2:00 PM EDT Office Visit [place] [address] Joan Castro MD [facility] [place] [address] 06/11/2024 1:03 PM EDT Hospital Encounter [place] [phone] Rachel Carrasco MD [facility] [place] [address] 06/11/2024 1:03 PM EDT - 06/11/2024 1:58 PM EDT Surgery [place] [phone] Rachel Carrasco MD [facility] [place] [address] CYSTO, REMOVAL OF STENT, FOREIGN BODY OR CALCULUS, SIMPLE (WRVU 2.81) 06/23/2024 10:00 AM EDT Office Visit Cardiology at [address] [address] Mo Horne MD [facility] [place] [address] Scheduled Procedures Name Priority Associated Diagnoses Date/Ti me CYSTO, REMOVAL OF STENT, FOR EIGN BODY OR CALCULUS, SIMPLE (WRVU 2.81) NEPHROLITHIASIS 06/11/2024 1:03 PM EDT documented as of this encounter Visit Diagnoses Not on filedocumented in this encounter Care Teams Applied Research Director Relationship Specialty Start Date End Date Amira Hooks PA [address] [place] [address] PCP - General Family Medicine 07/25/22 documented as of this encounter
--- OUTSIDE RECORDS SUMMARY | 2024-06-04 20:41 | XMS_ITS | Encounter Summary ---
Author Organization [facility] [place] [address] Care Team Providers Care Insect Control Aide Name Role Phone Amira Hooks Primary Care Provider Encounter Details Date Type Department Care Team (Latest Contact Info) Description 02/23/2024 Travel Social History Tobacco Use Types Packs/Day Years Used Date Smoking Tobacco: Former Cigarettes 1.5 15 1 995 - 2009 Smokeless Tobacco: Former Chew Quit: 2013 Alcohol Use Standard Drinks/Week Comments No 0 (1 standard drink = 0.6 oz pur e alcohol) [facility] Inpatient Questions Answer Date Recorded Does [...] 2:00 PM EDT Office [place] [address] Joan Castro MD [facility] [place] [address] 06/11/2024 1:03 PM EDT Hospital Encounter [place] [phone] Rachel Carrasco MD [facility] [place] [address] 06/11/2024 1:03 PM EDT - 06/11/2024 1:58 PM EDT Surgery [place] [phone] Rachel Carrasco MD [facility] [place] [place] [address] CYSTO, REMOVAL OF STENT, FOREIGN BODY OR CALCULUS, SIMPLE (WRVU 2.81) 06/23/2024 10:00 AM EDT Office Visit Cardiology at [address] [address] Mo Horne MD [facility] [place] [address] Scheduled Procedures Name Priority Associated Diagnoses Date/Ti me CYSTO, REMOVAL OF STENT, FOR EIGN BODY OR CALCULUS, SIMPLE (WRVU 2.81) NEPHROLITHIASIS 06/11/2024 1:03 PM EDT documented as of this encounter Visit Diagnoses Not on filedocumented in this encounter Care Teams Insect Control Aide Relationship Specialty Start Date End Date Amira Hooks PA [address] [place] [address] PCP - General Family Medicine 07/25/22 documented as of this encounter
--- OUTSIDE RECORDS SUMMARY | 2024-06-04 20:41 | XMS_ITS | Encounter Summary ---
[place] [address] Care Team Providers Care Wrapping Machine Helper Name Role Phone Amira Hooks Primary Care Provider Encounter Details Date Type Department Care Team (Late st Contact Info) Description 03/01/2024 Telephone [place] [address] Joss Johnson, RN Social History Tobacco Use Types Packs/Day Years Used Date Smoking Tobacco: Former Cigarettes 1.5 15 1 - 2009 Smokeless Tobacco: Former Chew Quit: 2013 Alcohol Use Standard Drinks/Week Comments No 0 (1 standard drink = 0.6 oz pur e alcohol) [facility] Inpatient Questions Answer Date Recorded Does Anyone [...] Telephone Encounter - Joss Johnson, RN - 03/01/2024 10:46 AM EDT Copied from CRM #[id number]. Topic: Specialty Dept CRMs - Generic Call >> Mar 01, 2024 9:23 AM Alissa Rodriguez wrote: Specialist: Rachel Carrasco Relationship (if other than patient-full name): self Reason for Call: Patient returning call to provider from earlier today. Patient states that he is available any time for return call. documented in this encounter Plan of Treatment Upcoming Encounters Date Type Department Care Team (Latest Contact Info) Description 06/07/2024 2:00 PM EDT Office Visit [place] [phone] Joan Castro MD [facility] [place] [address] 06/11/2024 1:03 PM EDT Hospital Encounter Main Operating Room [place] [phone] Rachel Carrasco MD [facility] [place] [address] 06/11/2024 1:03 PM EDT - 06/11/2024 1:58 PM EDT Surgery Main Operating Room [place] [phone] Rachel Carrasco MD [facility] [place] [address] CYSTO, REMOVAL OF STENT, FOREIGN BODY OR CALCULUS, SIMPLE (WRVU 2.81) 06/23/2024 10:00 AM EDT Office Visit Cardiology at [address] [place] [phone] Mo Horne MD [facility] [place] [address] Scheduled Procedures Name Priority Associated Diagnoses Date/Ti me CYSTO, REMOVAL OF STENT, FOR EIGN BODY OR CALCULUS, SIMPLE (WRVU 2.81) NEPHROLITHIASIS 06/11/2024 1:03 PM EDT documented as of this encounter Visit Diagnoses Not on filedocumented in this encounter Care Teams Wrapping Machine Helper Relationship Specialty Start Date End Date Amira Hooks PA [address] [place] [address] PCP - General Family Medicine 07/25/22 documented as of this encounter
--- OUTSIDE RECORDS SUMMARY | 2024-06-04 20:41 | XMS_ITS | Encounter Summary ---
Author Organization [facility] Address [facility] [place] [address] Care Team Providers Care Packaging Designer Name Role Phone Amira Hooks Primary Care Provider [phone] Encounter Details Date Type Department Care Team (Latest Contact Info) Description 01/16/2024 8:49 AM EST - 01/16/2024 9:57 PM EST Hospital Encounter [place] [address] Joan Castro MD [facility] [place] [address] Discharge Disposition: Home Social History Tobacco Use [...] 03/26/2024 ipratropium (ATROVENT) 21 mcg (0.03 %) Tracy, Non-Aerosol INSTILL 2 SPRAYS VIA NOSTRILS AT [...] times daily. 120 tablet 3 03/26/2024 03/26/2024 documented as of this encounter Plan of Treatment Upcoming Encounters Date Type Department Care Team (Latest Contact Info) Description 06/07/2024 2:00 PM EDT Office [place] [phone] Joan Castro MD [facility] [place] [address] 06/11/2024 1:03 PM EDT Hospital Encounter [place] [phone] Rcahel Carrasco MD [facility] [place] [address] 06/11/2024 1:03 PM EDT - 06/11/2024 1:58 PM EDT Surgery [place] [phone] Rachel Carrasco MD [facility] [place] [address] CYSTO, REMOVAL OF STENT, FOREIGN BODY OR CALCULUS, SIMPLE (WRVU 2.81) 06/23/2024 10:00 AM EDT Office Visit Cardiology at [address] [place] [phone] Mo Horne MD [facility] [place] [address] Scheduled Procedures Name Priority Associated Diagnoses Date/Ti me CYSTO, REMOVAL OF STENT, FOR EIGN BODY OR CALCULUS, SIMPLE (WRVU 2.81) NEPHROLITHIASIS 06/11/2024 1:03 PM EDT documented as of this encounter Procedures Procedure Name Priority Date/Time Associated Diagnosis Comments Colonoscopy, Diagnostic (56094) Dyspepsia Screening for colon cancer Upper GI Endoscopy, Diagnostic (70198) Dyspepsia Screening for colon cancer documented in this encounter Visit Diagnoses Not on filedocumented in this encounter Care Teams Packaging Designer Relationship Specialty Start Date End Date Amira Hooks PA [address] [place] [id number] PCP - General Family Medicine 07/25/22 documented as of this encounter
--- OUTSIDE RECORDS SUMMARY | 2024-06-04 20:41 | XMS_ITS | Encounter Summary ---
Author Organization [facility] Address [facility] [place] [address] Care Team Providers Care Regional Economic Liaison Name Role Phone Amira Hooks Primary Care Provider Encounter Details Date Type Department Care Team (Late st Contact Info) Description 03/08/2024 10:35 AM EDT Anesthesia Event [place] [address] Luis Manuel Moncada MD [facility] [place] [address] Anesthesia Record Procedure Summary Procedure Name Responsible Anesthesiologist Anesthesia Start Time Anesthesia Stop Time EGD WITH BIOPSY (WRVU 2.39) (Trunk) Luis Manuel Moncada MD 03/08/24 1035 03/08/24 1100 Events Date Time Event Comment 03/08/2024 1035 AN Verify 1035 Start 1037 An Start Data 1042 An Induction 1043 Anesthesia Ready 1046 1047 Procedure Start 1050 An Data Art SpO2 fell off 1056 Procedure Stop 1059 an stop data 1100 Recovery or ICU Handoff Kacey ent care was transferred to the destination unit staff after review of the patient's medical history, current anesthetic/surgical status and plan, according to the Provider Handoff Checklist. 1100 Stop Meds Name Total Propofol 100 mg Propofol INF 584.36 mg lactated ringers infusion 400 mL * Agents Name O2 Auxiliary Flowmeter 1 * Blood No blood administrations on file. Lines, Drains, and Airways Type Details Placement Removal PIV 03/08/24; 1024; 22 g auge; median cubital vein (antecubital fossa), left; Anatomical Landmarks; US Not Used; dennys; 03/08/24; 1125 03/08/24 1024 by Dennys Llamas RN 03/08/24 1125 by Db Wharton RN documented in this encounter Social History [...] OR Notes * Anesthesia Postprocedure Evaluation - Luis Manuel Moncada MD - 03/08/2024 11:33 AM EDT Department of Anesthesiology Post-procedure Note Patient: Rolo Aguilar Procedure Summary Date: 03/08/24 Room / Location: [facility] ENDO 5 / [facility]OSCOPY Anesthesia Start: 1035 Anesthesia Stop: 1100 Procedure: EGD WITH BIOPSY (WRVU 2.39) (Trunk) Diagnosis: Dyspepsia Screening for colon cancer (dyspepsia, abd pain, bloating and colon cancer screening - please schedule for January [address] Castro) (PT DECLINES COLO) Surgeons: Radu Silveira MD Responsible Provider: Luis Manuel Moncada MD Anesthesia Type: MAC ASA Status: 3 All Anesthesia Providers: Anesthesiologist: Luis Manuel Moncada MD AIR CREW OFFICER: Ava Morris CRNA Vitals Value Taken Time BP 103/49 03/08/24 1110 Temp Pulse Resp 14 03/08/24 1110 SpO2 98 % 03/08/24 1120 Pain Level 0 03/08/24 1110 Vitals shown include unfiled device data. Patient Location: PACU/OKP Level of Consciousness: Awake and Alert Pain Management: Satisfactory Analgesia PONV: None Cardiovascular Status: At Baseline and Hemodynamically Stable Respiratory Status: At Baseline and Room Air Postoperative Fluid Status: Intravascular EUvolemia Possible Anesthetic Complications: NONE apparent at time of evaluation Final Primary Anesthesia Type: MAC (The anesthetic type performed was the same as planned.) Comments: LUIS MANUEL MONCADA MD * Anesthesia Preprocedure Evaluation - Luis Manuel Moncada MD - 03/08/2024 10:13 AM EDT Pre-Anesthesia Evaluation for: Rolo Aguilar a 53 y.o. male. Procedure(s): EGD, [facility] Patient Active Problem List Diagnosis Date Noted ??? Small intestinal bacterial overgrowth (SIBO) 03/02/2024 ??? Gastroesophageal reflux disease 11/28/2023 ??? Obstructive [...] (WRVU 11.47) performed by Colt Hewitt MD [facility] MAIN OR ??? PRO UNLISTED LAPAROSCOPIC PX LVR N/A 07/21/2018 LAPAROSCOPIC LIVER BIOPSY (WRVU 16.52) performed by Colt Hewitt MD at [facility] MAIN OR ??? PRO UPPER GI ENDOSCOPY, BIOPSY N/A 12/29/2017 UPPER GASTROINTESTINAL ENDOSCOPY,WITH BIOPSY SINGLE OR MULTIPLE (WRVU 2.49) performed by Yusuf Tucker MD at [facility] ENDOSCOPY ??? PRO UPPER GI ENDOSCOPY, DIAGNOSTIC N/A 12/29/2017 EGD, UPPER GI ENDOSCOPY performed by Yusuf Tucker MD at [facility] ENDOSCOPY ??? TONSILLECTOMY Social History Tobacco Use ??? Smoking status: Former Packs/day: 1.50 Years: 15.00 Additional pack years: 0.00 Total pack years: 22.50 Types: Cigarettes Quit date: 2009 Years since quittin.3 ??? Smokeless tobacco: Former Types: Chew Quit [...] Physical Exam: Preprocedure Vitals Current as of 03/08/24 1013 BP: Pulse: Resp: 18 SpO2: Temp: Height: Weight: BMI: IBW: Last edited 03/08/24 1011 by Airway Assessment: Mallampati: II TM distance: >3 FB Cardiovascular Assessment: Rhythm: regular Pulmonary Assessment: unlabored breathing Dental Assessment: - normal exam Misc Assessment: IV access: Peripheral line Last Filed Perioperative Cognitive Screening None Anesthesia Plan: ASA 3 MAC, with a(n) intravenous induction 53-year-old 2011.7 kg M for EGD to eval GERD sx. PMH: Obesity (BMI: 74.41 kg/m??), asthma (no recent issue), CHF (torsemide), atrial fibrillation (apixaban, metoprolol), HTN (lisinopril), ASCVD (ASA,NTG), HLD (atorvastatin), GERD (dexlansoprazole), anxiety (clonazepam, lamotrigine). NPO, no issue with past anesthesia or recent illness. Propofol, std monitors. Region - Other Informed Consent: Anesthetic plan and risks discussed with patient. Plan discussed with AIR CREW OFFICER. Anesthesia Screening documented in this encounter Plan of Treatment Upcoming Encounters Date Type Department Care Team (Latest Contact Info) Description 06/07/2024 2:00 PM EDT Office Visit [place] [phone] Joan Castro MD [facility] [place] [address] 06/11/2024 1:03 PM EDT Hospital Encounter [place] [phone] Rachel Carrasco MD [facility] [place] [address] 06/11/2024 1:03 PM EDT - 06/11/2024 1:58 PM EDT Surgery [place] [phone] Rachel Carrasco MD [facility] [place] [address] CYSTO, REMOVAL OF STENT, FOREIGN BODY OR CALCULUS, SIMPLE (WRVU 2.81) 06/23/2024 10:00 AM EDT Office Visit Cardiology at [address] [phone] Mo Horne MD [facility] [place] [place] [address] Scheduled Procedures Name Priority Associated Diagnoses Date/Ti [...] infusion 100 mL/hr, Intravenous, CONTINUOUS, Starting on Fri03/08/24 at 1030, Until Fri03/08/24 at 1125, Day of Surgery (Day of Procedure) Restarted 03/08/2024 10:35 AM EDT New Bag 03/08/2024 10:30 AM EDT 100 mL/hr 100 mL/hr propofoL (Diprivan) (10 mg/mL) infusion Intravenous, CONTINUOUS PRN, Starting on Fri03/08/24 at 1042, Until Fri03/08/24 at 1100, Anesthesia Intra-op, Routine New Bag 03/08/2024 10:42 AM EDT 200 mcg/kg/min 250.44 mL/hr propofoL (Diprivan) 10 mg/mL bolus injection (Anesthesia) Intravenous, PRN, Starting on Fri03/08/24 at 1042, Until Fri03/08/24 at 1100, Anesthesia Intra-op Given 03/08/2024 10:46 AM EDT 20 mg Given 03/08/2024 10:45 AM EDT 30 mg Given 03/08/2024 10:42 AM EDT 50 mg documented in this encounter Care Teams Regional Economic Liaison Relationship Specialty Start Date End Date Amira Hooks PA [address] [place] [address] PCP - General Family Medicine 07/25/22 documented as of this encounter
--- OUTSIDE RECORDS SUMMARY | 2024-06-04 20:41 | XMS_ITS | Encounter Summary ---
Author Organization [facility] [place] [address] Care Team Providers Care Oncologist Name Role Phone Amira Hooks Primary Care Provider Encounter Details Date Type Department Care Team (Latest Contact Info) Description 01/26/2024 Travel Social History Tobacco Use Types Packs/Day [...] 2:00 PM EDT Office [place] [address] Joan Castro MD [facility] [place] [address] 06/11/2024 1:03 PM EDT Hospital Encounter [place] [phone] Rachel Carrasco MD [facility] [place] [address] 06/11/2024 1:03 PM EDT - 06/11/2024 1:58 PM EDT Surgery [place] [phone] Rachel Carrasco MD [facility] [place] [address] CYSTO, REMOVAL OF STENT, FOREIGN BODY OR CALCULUS, SIMPLE (WRVU 2.81) 06/23/2024 10:00 AM EDT Office Visit Cardiology at [address] [address] Mo Horne MD [facility] [place] [address] Scheduled Procedures Name Priority Associated Diagnoses Date/Ti me CYSTO, REMOVAL OF STENT, FOR EIGN BODY OR CALCULUS, SIMPLE (WRVU 2.81) NEPHROLITHIASIS 06/11/2024 1:03 PM EDT documented as of this encounter Visit Diagnoses Not on filedocumented in this encounter Care Teams Oncologist Relationship Specialty Start Date End Date Amira Hooks PA [address] [place] [id number] PCP - General Family Medicine 07/25/22 documented as of this encounter
--- OUTSIDE RECORDS SUMMARY | 2024-06-04 20:41 | XMS_ITS | Encounter Summary ---
Author Organization [facility]iam [facility] [place] [address] Care Team Providers Care Student Services Representative Name Role Phone Amira Hooks Primary Care Provider Encounter Details Date Type Department Care Team (Late st Contact Info) Description 03/01/2024 [place] [phone] Rachel Carrasco MD [facility] [place] [address] Social History Tobacco Use Types Packs/Day Years [...] Telephone Encounter - Rachel Carrasco MD - 03/03/2024 8:39 AM EDT Was able to reach pt and discuss findings - he is ok with proceeding with cysto/URS/LL/stent placement - discussed risks including bleeding, infection,damage to urethra, bladder, ureter (stricture / avulsion), kidney, repeat procedures, need for ureteral stent / PCN, open procedures, critical illness, and other anesthetic risks. All questions answered. Relayed he should present to ED with uncontrolled flank pain +/- fevers in the interim. Rachel Carrasco MD * Telephone Encounter - Rachel Carrasco MD - 03/01/2024 7:59 AM EDT Called Mr. Aguilar to relay the results of his CTU with left mid ureteral stone still present. NoanswerKIYA, will start looking for OR time for left URS/ll/stone removal and completion hematuriawork up with cysto. CTU 02/26/24 FINDINGS: Right kidney and ureter: Unchanged 2 [...] No suspicious lesions. Thoracolumbar degenerative disc disease. IMPRESSION 1. Unchanged position of a 2 mm right mid ureter calculus. No hydronephrosis. 2. Hepatic steatosis. documented in this encounter Plan of Treatment Upcoming Encounters Date Type Department Care Team (Latest Contact Info) Description 06/07/2024 2:00 PM EDT Office [place] [phone] Joan Castro MD [facility] [place] [address] 06/11/2024 1:03 PM EDT Hospital Encounter [place] [phone] Rachel Carrasco MD [facility] [place] [address] 06/11/2024 1:03 PM EDT - 06/11/2024 1:58 PM EDT Surgery [place] [phone] Rachel Carrasco MD [facility] [place] [address] CYSTO, REMOVAL OF STENT, FOREIGN BODY OR CALCULUS, SIMPLE (WRVU 2.81) 06/23/2024 10:00 AM EDT Office Visit Cardiology at [address] [address] oM Horne MD [facility] [address] Scheduled Procedures Name Priority Associated Diagnoses Date/Ti me CYSTO, REMOVAL OF STENT, FOR EIGN BODY OR CALCULUS, SIMPLE (WRVU 2.81) NEPHROLITHIASIS 06/11/2024 1:03 PM EDT documented as of this encounter Visit Diagnoses Not on filedocumented in this encounter Care Teams Student Services Representative Relationship Specialty Start Date End Date Amira Hooks PA [address] [address] PCP - General Family Medicine 07/25/22 documented as of this encounter
--- OUTSIDE RECORDS SUMMARY | 2024-06-04 20:41 | XMS_ITS | Encounter Summary ---
[place] [address] Care Team Providers Care Etched Circuit Processor Name Role Phone Amira Hooks Primary Care Provider Reason for Visit * Diagnostic Test (Routine) - Closed Specialty Diagnoses / Procedures Referred By Zeyad mishra Referred To Contact Gastroenterology Diagnoses Dyspepsia Abdominal bloating HBT - laculose - bloating Procedures Breath Hydrogen Test Joan Castro MD [facility] [place] [address] [facility] [address] [place] [address] Referral ID Status Reason Start Date Expiration Date V isits Requested Visits Authorized [id number] Closed Consult, Test & Treat 11/26/2023 11/25/2024 1 1 Encounter Details Date Type Department Care Team (Latest Contact Info) Description 02/14/2024 10:00 AM EDT Procedure [place] [address] Dyspepsia; Abdominal bloating Social History Tobacco Use Types Packs/Day Years Used Date Smoking Tobacco: Former Cigarettes 1.5 15 1 - 2009 Smokeless Tobacco: Former Chew Quit: 2013 Alcohol Use Standard Drinks/Week Comments No 0 (1 standard drink = 0.6 oz pur e alcohol) [facility] Inpatient Questions Answer Date Recorded [...] as of this encounter Progress Notes * Davon Lay APRN - 02/14/2024 10:00 AM EDT Gastroenterology Breath Test Report Patient: Rolo Aguilar Date Of : 1970 PCP: SONNY Gambino Referring: Joan Castro STUDY DATE: 02/18/2024 PROVIDER: Davon Lay APRN INDICATION: bloating ppmH2 ppmCH4 CO2(f) Fasting Baseline 38 26 3.5/1.74 Administer sugar: Lactulose 10g with 90 mL H2O Sample Time ppmH2 ppmCH4 CO2(f) 90 min 32 25 3.4/1.79 Interpretation: Excess hydrogen production (>20ppm) at baseline. This may represent presence of a small intestinal bacterial overgrowth (SIBO) variant or deviation from test protocol. Patient had excess production of methane which can be associated with constipation. Patient reported no symptoms during the test. Clinical interpretation is based on the Hydrogen and Methane-Based Breath Testing in Gastrointestinal Disorders: The [place] Consensus (Am J Gastroenterol 2017; 112(5):775-84. Apositive breath test is defined as a rise in hydrogen production >20 ppm compared to baseline within 90 minutes. Methane-positive is defined by at least 10 ppm production of methane. SignedDavon APRN Gastroenterology [place] [address] P: [phone] F: [phone] Copy: SONNY Espinoza documented in this encounter Plan of Treatment Upcoming Encounters Date Type Department Care Team (Latest Contact Info) Description 06/07/2024 2:00 PM EDT Office [place] [address] Jona Castro MD [facility] [place] [address] 06/11/2024 1:03 PM EDT Hospital Encounter [place] [phone] Rachel Carrasco MD [facility] [place] [address] 06/11/2024 1:03 PM EDT - 06/11/2024 1:58 PM EDT Surgery [place] [phone] Rachel Carrasco MD [facility] [place] [address] CYSTO, REMOVAL OF STENT, FOREIGN BODY OR CALCULUS, SIMPLE (WRVU 2.81) 06/23/2024 10:00 AM EDT Office Visit Cardiology at [address] [address] Mo Horne MD [facility] [place] [address] Scheduled Procedures Name Priority Associated Diagnoses Date/Ti me CYSTO, REMOVAL OF STENT, FOR EIGN BODY OR CALCULUS, SIMPLE (WRVU 2.81) NEPHROLITHIASIS 06/11/2024 1:03 PM EDT documented as of this encounter Visit Diagnoses Diagnosis Dyspepsia Dyspepsia and other specified disorders of function of stomach Abdominal bloating Flatulence, eructation, and gas pain documented in this encounter Care Teams Etched Circuit Processor Relationship Specialty Start Date End Date Amira Hooks PA [address] [address] PCP - General Family Medicine 07/25/22 documented as of this encounter
--- OUTSIDE RECORDS SUMMARY | 2024-06-04 20:41 | XMS_ITS | Encounter Summary ---
[place] [address] Care Team Providers Care Music Librarian Name Role Phone Amira Hooks Primary Care Provider [phone] Encounter Details Date Type Department Care Team (Late st Contact Info) Description 03/16/2024 [place] [address] Michelle Reed, RN Social History Tobacco Use [...] Telephone Encounter - Michelle Reed RN - 03/16/2024 12:56 PM EDT Called and spoke to patients spouse. Patient is in ED at [facility] right sided flank pain and hematuria. Patients spouse says ED doctor Carlos Rehman, DO is trying to contact urology * Telephone Encounter - Michelle Reed RN - 03/16/2024 12:27 PM EDT Copied from [facility] #[id number]. Topic: Specialty Dept CRMs - Triage >> March 16, 2024 8:46 AM Rayo Bhagat wrote: Triage Message Specialist: Danilo Relationship (if other than patient-full name): self Symptom: back pain Has patient experienced symptom before yes If patient has experienced symptom before, when was the last time this occurred ongoing kidney stone Is patient currently having symptom yes When did symptom begin about 6 hours ago Additional Comments: Patient called in, stated he is having pretty bad back pain due to his kidney stone. Patient stated that the pain woke him up around 6 hours ago, was wondering if he could get medication for the pain. Patient stated he can't take Advil, but has tried Tylenol and it's not helping. documented in this encounter Plan of Treatment Upcoming Encounters Date Type Department Care Team (Latest Contact Info) Description 06/07/2024 2:00 PM EDT Office [place] [address] Joan Castro MD [facility] DR [place] [address] 06/11/2024 1:03 PM EDT Hospital Encounter [place] [address] Rachel Carrasco MD [facility] [place] [address] 06/11/2024 1:03 PM EDT - 06/11/2024 1:58 PM EDT Surgery [place] [address] Rachel Carrasco MD [facility] [place] [address] CYSTO, REMOVAL OF STENT, FOREIGN BODY OR CALCULUS, SIMPLE (WRVU 2.81) 06/23/2024 10:00 AM EDT Office Visit Cardiology at [address] [place] [address] Mo Horne MD [facility] [place] [address] Scheduled Procedures Name Priority Associated Diagnoses Date/Ti me CYSTO, REMOVAL OF STENT, FOR EIGN BODY OR CALCULUS, SIMPLE (WRVU 2.81) NEPHROLITHIASIS 06/11/2024 1:03 PM EDT documented as of this encounter Visit Diagnoses Not on filedocumented in this encounter Care Teams Music Librarian Relationship Specialty Start Date End Date Amira Hooks PA [address] [place] [id number] PCP - General Family Medicine 07/25/22 documented as of this encounter
--- OUTSIDE RECORDS SUMMARY | 2024-06-04 20:41 | XMS_ITS | Encounter Summary ---
Author Organization [facility] Address [facility] [place] [address] Care Team Providers Care Clinical Pharmacy Specialist Name Role Phone Amira Hooks Primary Care Provider Encounter Details Date Type Department Care Team (Late st Contact Info) Description 02/18/2024 [place] [address] Rachel Carrasco MD [facility] [place] [address] Hematuria, unspecified type Social History Tobacco Use Types Packs/Day Years [...] 2:00 PM EDT Office [place] [address] Joan Castro MD [facility] [place] [address] 06/11/2024 1:03 PM EDT Hospital Encounter [place] [phone] Rachel Carrasco MD [facility] [place] [address] 06/11/2024 1:03 PM EDT - 06/11/2024 1:58 PM EDT Surgery [place] [phone] Rachel Carrasco MD [facility] [place] [address] CYSTO, REMOVAL OF STENT, FOREIGN BODY OR CALCULUS, SIMPLE (WRVU 2.81) 06/23/2024 10:00 AM EDT Office Visit Cardiology at [address] [address] Mo Horne MD [facility] [place] [address] Scheduled Procedures Name Priority Associated Diagnoses Date/Ti me CYSTO, REMOVAL OF STENT, FOR EIGN BODY OR CALCULUS, SIMPLE (WRVU 2.81) NEPHROLITHIASIS 06/11/2024 1:03 PM EDT documented as of this encounter Results * Creatinine (04/09/2024 11:01 AM EDT) Creatinine 0.88 0.80 - 1.50 mg/dL [facility] Estimated GFR 102 >=60 mL/min/1. 73 m?? [facility] Comment: This patient's estimated GFR [...] In Lab Rachel Carrasco MD CHEMISTRY ORDERABLES [facility] [place] [address] documented in this encounter Visit Diagnoses Diagnosis Hematuria, unspecified type documented in this encounter Care Teams Clinical Pharmacy Specialist Relationship Specialty Start Date End Date Amira Hooks PA [address] [place] [id number] PCP - General Family Medicine 07/25/22 documented as of this encounter
--- OUTSIDE RECORDS SUMMARY | 2024-06-04 20:41 | XMS_ITS | Encounter Summary ---
Author Organization [facility] Address [facility] [place] [address] Care Team Providers Care Depot Agent Name Role Phone Amira Hokos Primary Care Provider [phone] Encounter Details Date Type Department Care Team (Latest Contact Info) Description 03/08/2024 10:02 AM EDT - 03/08/2024 11:27 AM EDT Hospital Encounter [place] [address] Radu Silveira MD [facility] [place] [address] Discharge Disposition: Home Social History Tobacco Use Types Packs/Day Years Used Date Smoking Tobacco: Former Cigarettes 1.5 15 1 - 2009 Smokeless Tobacco: Former Chew Quit: 2013 Tobacco Cessation:Counseling Given: Not Answered Alcohol Use Standard Drinks/Week Comments No 0 (1 standard drink = 0.6 oz pur e alcohol) [facility] Inpatient Questions Answer Date Recorded Does Anyone [...] encounter Discharge Instructions * Discharge Instructions* Erich Umanzor, RN - 03/08/2024 10:55 AM EDT Upper [...] the day after the procedure, use an ejyf-fjs-xjtyjyy spray to numb your throat. Sucking on [...] occurs, please contact your Doctor. Please call [phone] before 8pm Mon-Fri with problems, questions or concerns. If you call after 8pm or on weekends, call the Hospital at [phone] and ask to speak to the [employer] neonatal critical care nurse and the wafer fab operator will contact that person for you. When should you call for help? Call [phone] anytime you think you may need emergency [...] any problems. Where can you learn more? [facility] View your After Visit Summary and more online at [email or web address] If you would like to provide feedback [...] cost to you. Content Version: 12.2 ?? [id number] Seen. Care instructions adapted under license by [facility]. If you have questions about a medical condition or this instruction, always ask your healthcare professional. Seen disclaims any warranty or liability for your [...] 03/02/2024 ipratropium (ATROVENT) 21 mcg (0.03 %) [place], Non-Aerosol INSTILL 2 SPRAYS VIA NOSTRILS AT [...] Operative Note Patient Name: Rolo Aguilar : [id number] MR#: [id number] Case Date: 03/08/2024 Surgeon: Surgeon(s) and Role: * Radu Silveira MD - Primary Procedure(s): EGD WITH BIOPSY (WRVU 2.39) Please see Provation report for details. documented in this encounter Plan of Treatment Upcoming Encounters Date Type Department Care Team (Latest Contact Info) Description 06/07/2024 2:00 PM EDT Office Visit [place] [phone] Joan Castro MD [facility] [place] [address] 06/11/2024 1:03 PM EDT Hospital Encounter Main Operating Room [address] Rachel Carrasco MD [facility] [place] [address] 06/11/2024 1:03 PM EDT - 06/11/2024 1:58 PM EDT Surgery Main Operating Room [address] Rachel Carrasco MD [facility] [place] [address] CYSTO, REMOVAL OF STENT, FOREIGN BODY OR CALCULUS, SIMPLE (WRVU 2.81) 06/23/2024 10:00 AM EDT Office Visit Cardiology at [address] [phone] Mo Horne MD [facility] [place] [address] Scheduled Procedures Name Priority Associated Diagnoses Date/Ti [...] 10:49 AM EDT Upper Gi Endoscopy, Biopsy (50582) 03/08/2024 10:38 AM EDT Dyspepsia Screening for colon cancer documented in this encounter Results * Specimen to Pathology (03/08/2024 10:54 AM EDT) AP Specimen 03/08/2024 10:5 4 AM EDT 03/08/2024 10:54 AM EDT Narrative [facility] - 03/08/2024 10:54 AM EDT Specimen requisition ordered. ??Separate Pathology report to follow Radu Silveira MD PATHOLOGY/CYTOLOGY O [place]IA[place] Performing Organization Address [facility] [place] [place] [address] * Specimen to Pathology (03/08/2024 10:54 AM EDT) AP Specimen 03/08/2024 10:5 4 AM EDT 03/08/2024 10:54 AM EDT Narrative [facility] - 03/08/2024 10:54 AM EDT Specimen requisition ordered. ??Separate Pathology report to follow Radu Silveira MD PATHOLOGY/CYTOLOGY O [place] Performing Organization Address City/[facility]/[place] [address] * Specimen to Pathology (03/08/2024 10:54 AM EDT) AP Specimen 03/08/2024 10:5 4 AM EDT 03/08/2024 10:54 AM EDT Narrative [facility] - 03/08/2024 10:54 AM EDT Specimen requisition ordered. ??Separate Pathology report to follow Radu Silveira MD PATHOLOGY/CYTOLOGY O RDERABLES [facility] [place] [address] * Surgical Pathology Report (03/08/2024 10:49 AM [...] MD Verified: ??03/19/2024 15:53 ??Pathologist Performed at: ??-[facility] Dept. of Pathology, [place] [address] Umbrella Tipper Hand: Rosendo Hawkins MD, FCAP, ??CLIA Certificate: [id number] SPECIMEN(S) SUBMITTED A - duodenal biopsies, biopsy [...] labeled C1. ??sdy 03/19/2024 3:53 PM EDT [facility] 03/08/2024 10:4 9 AM EDT Radu Silveira MD PATHOLOGY/CYTOLOGY O RDERABLES [facility] [place] [address] documented in this encounter Visit Diagnoses Not [...] CRNA) documented in this encounter Care Teams Depot Agent Relationship Specialty Start Date End Date Amira Hooks PA [address] [place] [id number] PCP - General Family Medicine 07/25/22 documented as of this encounter
--- OUTSIDE RECORDS SUMMARY | 2024-06-04 20:41 | XMS_ITS | Encounter Summary ---
[facility] Organization [facility] [place] [address] Care Team Providers Care Systems Eng Name Role Phone Amira Hooks Primary Care Provider Reason for Visit * Reason Comments Blood In Urine Encounter Details Date Type Department Care Team (Late st Contact Info) Description 01/04/2024 11:02 AM EST - 01/04/2024 2:15 PM EST [place] [id number] Hematuria, unspecified type Discharge Disposition: Home Social [...] Sign Reading Time Taken Comments Blood Pressure 154/79 01/04/2024 10:59 AM EST Pulse 65 01/04/2024 10:59 AM EST Temperature 36.5 ??C (97.7 ??F) 01/04/2024 10:[address] Respiratory Rate 18 01/04/2024 10:59 AM EST Oxygen Saturation 97% 01/04/2024 10:59 AM EST Inhaled Oxygen Concentration - - Weight - - Height - - Body Mass Index - - documented in this encounter Discharge Instructions * Discharge Instructions* Anthony Trejo PA - 01/04/2024 1:59 PM EST You are seen in the emergency department for evaluation of hematuria. This is likely secondary to your known kidney stone and the fact that you are on Eliquis. Your labshere were reassuring and showed no evidence of infection or kidney problems. Likely that you have passed the stone at this point but you can strain your urine for the next few days to see. You should follow-up with urology as previously planned. Return to the emergency department for any new or worsening symptoms including inability to urinate, fevers, chills, burning when you pee, worsening pain or any other concerns. documented in this encounter Medications at Time [...] 03/26/2024 ipratropium (ATROVENT) 21 mcg (0.03 %) [place], Non-Aerosol INSTILL 2 SPRAYS VIA NOSTRILS AT [...] 03/26/2024 03/26/2024 documented as of this encounter ED Notes * Anthony Trejo PA - 01/04/2024 2:01 PM EST ED Provider Note HPI: Rolo Aguilar is a 53 y.o. male with a history of CAD, A-fib status post multiple ablations onEliquis, PILAR, who presents to the Emergency Department for evaluation of hematuria. Patient reports2 weeks ago he had painless hematuria and was seen by his PCP who ordered a CT scan that showed a 2mm right-sided kidney stone. Patient was started on Bactrim at that time due to a possible infectious process. Patient reports that he was feeling well but this morning when he woke up he peed a significant amount of blood. Patient denies any burning with urination, increased frequency, feeling that he is retaining urine, fevers, chills, numbness, tingling, abdominal pain. Does endorse some mild b ilateral flank discomfort. Patient denies any other complaints at this time. Patient reports he wasreferred to urology previously for his hematuria. Patient has a distant smoking history. ROS as per HPI Vitals: ED Triage Vitals [01/04/24 1059] BP: 154/79 Heart Rate: 65 Resp: 18 Temp: 36.5 ??C (97.7 ??F) Temp src: Temporal SpO2: 97 % O2 Device: RA O2 Flow Rate (L/min): n/a Physical Exam Vitals and nursing note reviewed. Constitutional: General: He is not in acute distress. Appearance: Normal appearance. He is not ill-appearing, toxic-appearing or diaphoretic. HENT: Head: Normocephalic and atraumatic. Nose: Nose normal. No congestion. Mouth/Throat: Mouth: Mucous membranes are moist. Eyes: Pupils: Pupils are equal, round, and reactive to light. Cardiovascular: Rate and Rhythm: Normal rate and regular rhythm. Pulses: Normal pulses. Pulmonary: Effort: Pulmonary effort is normal. No respiratory distress. Abdominal: General: Abdomen is flat. Palpations: Abdomen is soft. Tenderness: There is no abdominal tenderness. There is no right CVA tenderness, left CVA tenderness, guarding or rebound. Musculoskeletal: General: Normal range of motion. Cervical back: Normal range of motion and neck supple. Skin: General: Skin is warm and dry. Neurological: General: No focal deficit present. Mental Status: He is alert and oriented to person, place, and time. DDx: UTI, Pyelonephritis, Renal Colic, Disc Injury, Sciatica, MSK Pain ED Course: I have reviewed labs and imaging, images and available reports, and they are significant for: No orders to display ED Course as of 01/04/242253 [place] Jan 04, 2024 1228 Blood UA(!): Large 1228 Leukocytes UA: Negative 1228 Nitrite UA: Negative 1228 Bacteria UA(!): Rare 1228 WBC UA: <1 1228 Protein UA(!): Trace 1341 WBC: 8.6 1342 Hemoglobin: 14.0 1342 Platelets: 214 1347 Glucose Lvl: 119 1347 Creatinine: 0.82 1347 Sodium: 142 1347 Potassium: 4.4 1347 Anion Gap: 11 1347 Calcium: 9.7 Procedures Assessment and Plan: 53 y.o. male with hematuria in the setting of known nephrolithiasis and on Eliquis. Normotensive, afebrile, nontachycardic, not hypoxic. On exam patient well-appearing no acute distress. No real CVA tenderness. Patient had CT recently that showed mid ureter nephrolithiasis. Labs here show no leukocytosis, no anemia, normal kidney function. UA with blood but no evidence of infection. The patient has no pain. Discussed imaging but did not feel that it was necessary at this time. The patient reports significant painless hematuria but he is on Eliquis and has a known stone therefore I think this is likely the cause. No concern for urinary retention. Patient has follow-up with urology. I gave him a strainer and encouraged him to stay well-hydrated and return for any new or worsening symptoms. Patient states understanding agreement with this plan. Did this case involve critical care? No The visit findings, diagnosis, and care plan were discussed with the patient. The diagnosis and care plans discussions were outlined in the discharge instructions. The patient expressed understanding of the details of the visit, the return precautions and that he should returnto the ER at any time for worsening symptoms, new symptoms, or other concerns. he agrees with the follow- up plan. Anthony Trejo PA 01/04/242253 documented in this encounter Miscellaneous Notes * ED Triage - Breonna Huff RN - 01/04/2024 10:57 AM EST Patient arrives with concerns for hematuria starting this morning. This happened 2 weeks ago and hewas told an old kidney stone on the L was no longer there and they thought he may have passed it. Does have new 2mm kidney stone on R, put on Bactrim. Endorses 2/10 R flank pain and very mild burningwith urination. Denies fever, urgency, frequency. Pt speaking in clear, logical and full sentences. Respiratory rate regular and unlabored. Skin appropriate color, warm and dry. Alert & oriented x4 HPI (Adult) Stated Reason for Visit: peeing blood History Obtained From: patient documented in this encounter Plan of Treatment Upcoming Encounters Date Type Department Care Team (Latest Contact Info) Description 06/07/2024 2:00 PM EDT Office Visit Gastroenterology at [place] [phone] Joan Castro MD [facility] [place] [address] 06/11/2024 1:03 PM EDT Hospital Encounter Main Operating Room [place] [phone] Rachel Carrasco MD [facility] [place] [address] 06/11/2024 1:03 PM EDT - 06/11/2024 1:58 PM EDT Surgery [place] [phone] Rachel Carrasco MD [facility] [place] [address] CYSTO, REMOVAL OF STENT, FOREIGN BODY OR CALCULUS, SIMPLE (WRVU 2.81) 06/23/2024 10:00 AM EDT Office Visit Cardiology at [address] [place] [address] Mo Horne MD [facility] [place] [address] Scheduled Procedures Name Priority Associated Diagnoses Date/Ti me CYSTO, REMOVAL OF STENT, FOR EIGN BODY OR CALCULUS, SIMPLE (WRVU 2.81) NEPHROLITHIASIS 06/11/2024 1:03 PM EDT documented as of this encounter Procedures Procedure Name Priority Date/Time Associated Diagnosis Comments HEMOGRAM STAT 01/04/2024 12:38 PM EST DIFFERENTIAL, AUTOMATED STAT 01/04/2024 12:38 PM EST GOLD TUBE HOLD STAT 01/04/2024 12:38 PM EST HC CBC,PLT & AUTO DIFF STAT 01/04/2024 12:38 PM EST BASIC METABOLIC PANEL (NON-FASTING) STAT 01/04/2024 12:38 PM EST URINALYSIS MICROSCOPIC EXAM STAT 01/04/2024 11:28 AM EST URINALYSIS WITH REFLEX CULTURE STAT 01/04/2024 11:28 AM EST documented in this encounter Results * Gold Tube HOLD (01/04/2024 12:38 PM EST) Pathologist [facility] Gold Hold Sample in lab. [facility] Blood Venous Draw / Unknown 01/04/2024 12:38 PM EST 01/04/2024 1:09 PM EST Anthony DENNIS CHEMISTRY ORDERABLES [facility] [place] [address] * (ABNORMAL) Differential, Automated (01/04/2024 12:38 PM EST) Neutrophils % 70.6 % [facility] Neutr Abs (ANC) 6.06 1.70 - 6.10 x10(3)/[facility] Lymphocytes % 20.0 % [facility] Lymphocytes Abs 1.7 0.9 - 3.2 x10(3)/[facility] Monocytes % 6.8 % [facility] Monocyte Abs 0.6 0.3 - 0.9 x10(3)/[facility] Eosinophils % 1.2 % [facility] Eosinophils Abs 0.1 0.0 - 0.4 x10(3)/[facility] Basophils % 0.6 % [facility] Basophils Abs 0.0 0.0 - 0.1 x10(3)/[facility] Immature Gran % 0.80 % [facility] Comment: Immature granulocytes(IG's)percentage and absolute count will include metamyelocytes, myelocytes, and promyelocytes. Blood smears from CBCs yielding IG's will be scanned manually for concordance. If this scan disagrees with the automated IG or if promyelocytes are noted, a manual differential will be performed. Amy Gran Abs 0.07(H) 0.00 - 0.04 x10(3)/[facility] Blood 01/04/2024 12:3 8 PM EST 01/04/2024 1:08 PM EST Narrative Resulting Agency Comment Spec In Lab Anthony DENNIS HEMATOLOGY ORDERABLE S [facility] [place] [address] * (ABNORMAL) Hemogram (01/04/2024 12:38 PM EST) Pathologist [facility] WBC 8.6 4.0 - 9.5 x10(3)/[facility] RBC 5.02 4.58 - 5.54 x10(6)/[facility] Hemoglobin 14.0 13.7 - 16.5 g/dL [facility] Hematocrit 43.4 40.5 - 48.5 % [facility] MCV 86.5 82.9 - 93.1 [facility] MCH 27.9 27.5 - 32.1 pg [facility] MCHC 32.3 32.0 - 35.7 g/dL [facility] Platelets 214 145 - 357 x10(3)/[facility] RDWSD 44.9 36.0 - 45.0 [facility] RDWCV 14.3(H) 11.4 - 13.8 % [facility] MPV 10.5 7.6 - 12.9 [facility] nRBC % Auto 0.0 % [facility] nRBC Abs Auto 0.000 0.000 - 0.000 x10(3)/[facility] Blood 01/04/2024 12:3 8 PM EST 01/04/2024 1:08 PM EST Narrative Resulting Agency Comment Spec In Lab Anthony DENNIS HEMATOLOGY ORDERABLE S [facility] [place] [address] * Basic Metabolic Panel (non-fasting) (01/04/2024 12:38 PM EST) Glucose Lvl 119 65 - 199 mg/dL [facility] Comment:Diabetes: >=200 mg/d L plus symptoms BUN 10 10 - 20 mg/dL [facility] Creatinine 0.82 0.80 - 1.50 mg/dL [facility] Sodium 142 135 - 145 mmol/L [facility] Potassium 4.4 3.5 - 5.0 mmol/L [facility] Comment: Please note: ??Patients with WBC >100,000 may have falsely elevated Potassium levels. ??For accurate Potassium quantification in these patients send serum separator tube (gold top) for subsequent determinations. ??Contact the Clinical Chemistry Laboratory if there are any questions. Chloride 105 98 - 107 mmol/L [facility] CO2 26 22 - 31 mmol/L [facility] Anion Gap 11 5 - 15 mmol/L [facility] Calcium 9.7 8.5 - 10.5 mg/dL [facility] Estimated GFR 104 >=60 mL/min/1. 73 m?? [facility] Comment: This patient's estimated [...] Pieter Rios III, MD CHEMISTRY ORDERABL ES [facility] [place] [address] * (ABNORMAL) Urinalysis Microscopic Exam (01/04/2024 11:28 AM EST) RBC UA 4(H) 0 - 3 /HPF [facility] WBC UA <1 0 - 3 /HPF [facility] Bacteria UA Rare(A) None /HPF [facility] Squam Epith UA <1 <=4 /HPF [facility] Clean Catch Urine 01/04/2024 11:28 AM EST 01/04/2024 11:42 AM EST Narrative Resulting Agency Comment Spec In Lab Geno Walker BLOW MOLDING MACHINE TENDER URINE ORDERABLES Performing Organization Address City/[facility]/ZIP Co de Phone Number [facility] [place] [address] * (ABNORMAL) Urinalysis with reflex Culture (01/04/2024 11:28 AM EST) Glucose UA Negative Negative mg/dL [facility] Protein UA Trace(A) Negative mg/dL [facility] Bilirubin UA Negative Negative mg/dL [facility] Comment: Clinical correlation required for positive Urine Bilirubin results as false positive may occur with some drugs and drug related products. If a false positive is suspected a serum total bilirubin should be considered if clinically indicated. Urobilinogen UA Normal Normal mg/dL [facility] pH UA 7.0 5.0 - 8.0 [facility] Blood UA Large(A) Negative mg/dL [facility] Ketones UA Negative Negative mg/dL [facility] Nitrite UA Negative Negative [facility] Leukocytes UA Negative Negative [facility] Appearance UA Clear Clear [facility] Spec [place] UA 1.004(L) 1.005 - 1.030 [facility] Color UA Yellow Yellow [facility] Culture Reflexed No [facility] Clean Catch Urine 01/04/2024 11:28 AM EST 01/04/2024 11:42 AM EST Narrative Resulting Agency Comment Spec In Lab Geno Walker APRN URINE ORDERABLES Performing Organization Address City/[facility]/ZIP Co de Phone Number [facility] [address] documented in this encounter Visit Diagnoses Diagnosis Hematuria, unspecified type documented in this encounter Care Teams Systems Eng Relationship Specialty Start Date End Date Amira Hooks PA [address] [address] PCP - General Family Medicine 07/25/22 documented as of this encounter
--- OUTSIDE RECORDS SUMMARY | 2024-06-04 20:41 | XMS_ITS | Encounter Summary ---
Author Organization [facility] [place] [address] Care Team Providers Care Gas Distribution Supervisor Name Role Phone Amira Hooks Primary Care Provider [phone] Encounter Details Date Type Department Care Team (Latest Contact Info) Description 02/14/2024 Travel Social History Tobacco Use Types Packs/Day Years Used Date Smoking Tobacco: Former Cigarettes 1.5 15 1 995 - 2009 Smokeless Tobacco: Former Chew Quit: 2013 Alcohol Use Standard Drinks/Week Comments No 0 (1 standard drink = 0.6 oz pur e alcohol) [facility] Inpatient Questions Answer Date Recorded Does Anyone [...] 2:00 PM EDT Office [place] [address] Joan Castro MD [facility] [place] [address] 06/11/2024 1:03 PM EDT Hospital Encounter [place] [phone] Rachel Carrasco MD [facility] [place] [address] 06/11/2024 1:03 PM EDT - 06/11/2024 1:58 PM EDT Surgery [place] [phone] Rachel Carrasco MD [facility] [place] [address] CYSTO, REMOVAL OF STENT, FOREIGN BODY OR CALCULUS, SIMPLE (WRVU 2.81) 06/23/2024 10:00 AM EDT Office Visit Cardiology at [address] [phone] Mo Horne MD [facility] [place] [address] Scheduled Procedures Name Priority Associated Diagnoses Date/Ti me CYSTO, REMOVAL OF STENT, FOR EIGN BODY OR CALCULUS, SIMPLE (WRVU 2.81) NEPHROLITHIASIS 06/11/2024 1:03 PM EDT documented as of this encounter Visit Diagnoses Not on filedocumented in this encounter Care Teams Gas Distribution Supervisor Relationship Specialty Start Date End Date Amira Hooks PA [address] [place] [address] PCP - General Family Medicine 07/25/22 documented as of this encounter
--- OUTSIDE RECORDS SUMMARY | 2024-06-04 20:41 | XMS_ITS | Encounter Summary ---
Author Organization [facility] [place] [address] Care Team Providers Care Gasoline Pump Mechanic Name Role Phone Amira Hooks Primary Care Provider [phone] Encounter Details Date Type Department Care Team (Late st Contact Info) Description 02/23/2024 Telephone [place] [address] Mahin Helms Social History Tobacco Use Types Packs/Day Years Used Date Smoking Tobacco: Former Cigarettes 1.5 15 1 - 2009 Smokeless Tobacco: Former Chew Quit: 2013 Alcohol Use Standard Drinks/Week Comments No 0 (1 standard drink = 0.6 oz pur e alcohol) [facility] Inpatient Questions Answer Date Recorded Does [...] encounter Miscellaneous Notes * Telephone Encounter - Mahin Helms - 02/23/2024 8:41 AM EDT Rolo Aguilar [id number] Diagnosis/Indication: heartburn Please review patient chart to confirm if previous Endoscopy procedure was performed within system. If yes, take note of Anesthesia type used. If previous procedure found, and with MAC/propofol Anesthesia support was used, schedule this procedure with Anesthesia and skip the Anesthesia portion of questions. If not performed within system, not performed at all, or performed with IVCS, ask Anesthesia questions. SCHEDULING QUESTIONS (ask all patient these questions) Have you ever had a/an Upper Endoscopy before? Yes: Date 12/29/17 If yes, did you have any problems with the procedure (such as waking up during the procedure, pain or difficulties afterwards, etc.)? No What type of sedation was used: General Anesthesia (ASK ONLY FOR COLONOSCOPY PROCEDURES) Are you aware, or have you ever been told that you had a poor prep or failed prep with a previous colonoscopy? No If yes, assign the Extended MiraLAX Prep (ASK ONLY FOR COLONOSCOPY PROCEDURES) Do you have an ongoing history of constipation? (E.g., hard stools, >2 days without a bowel movement, straining or difficulty passing stool) No If yes, assign the Extended MiraLAX Prep Do you take any blood thinners or have you been diagnosed with a bleeding disorder that increases your risk of bleeding with procedures? Yes: Type: eliquis Do you have a Pacemaker or Defibrillator device? If yes, send pool message to Cardiology with patient information and date or procedure. No Do you have diabetes? If yes, call PCP/managing provider to discuss use of prep and any questions or concerns related to. No If yes, assign the Extended MiraLAX Prep Do you take any iron supplements or vitamins that contain iron? No Do you have a preference regarding the gender of your provider? Yes Tormey ANESTHESIA QUESTIONS (YES to any question, please book with Anesthesia support) Have you ever been diagnosed with Pulmonary Hypertension and/or Congential Heart Disease? No Have you been diagnosed with A-Fib (atrial fibrillation) that is NOT being well controled with medications? No Have you ever had an allergic or adverse reaction to Fentanyl or Versed? No Have you had a problem with sedation or anesthesia? (Waking up during procedure, extreme confusion after, etc.) No Do you have a diagnosis of Obstructive Sleep Apnea that requires the use of a c- pap machine? Yes Do you use an oxygen tank at home? No Do you use a rescue inhaler more than twice per day? (COPD, severe asthma) No Do you experience breathing problems when you lay flat for a period of time? No Do you regularly take prescription opioid pain medications on a daily basis? (Includes oxycodone, Percocet, Suboxone, methadone, etc.) No If yes, assign the Extended MiraLAX Prep SCHEDULING CONFIRMATIONS: Please note any and all parts of your conversation with the patient here. We offer all new patients an opportunity to have an appointment with one of our associate care providers to learn more about your upcoming procedure, ask questions and get answers. These appointmentsare offered via telehealth. Would you be interested in scheduling this appointment? (Only ask if NEW referral patient; skip this question if GI provider ordered the procedure.) No Is there any other information or concerns you would like to us to share with your care team in relation to your upcoming scheduled procedure? No You must have a responsible republican who will drive you to your procedure, stay on campus for the entire duration of your procedure, and drive you home from your procedure. Who will likely be your ambulette driver for the procedure? *Please Verify the height and weight, and adjust if height and/or weight have changed* Estimated body mass index is 75.34 kg/m?? as calculated from the following: Height as of 11/26/23: 167.6 cm (5' 6). Weight as of 11/26/23: 211.7 kg (466 lb 12.8 oz). Age:53 y.o. documented in this encounter Plan of Treatment Upcoming Encounters Date Type Department Care Team (Latest Contact Info) Description 06/07/2024 2:00 PM EDT Office Visit [place] [address] Joan Castro MD [facility] [place] [address] 06/11/2024 1:03 PM EDT Hospital Encounter [place] [address] Rachel Carrasco MD [facility] [place] [place] [address] 06/11/2024 1:03 PM EDT - 06/11/2024 1:58 PM EDT Surgery [place] [address] Rachel Carrasco MD [facility] [place] [place] [address] CYSTO, REMOVAL OF STENT, FOREIGN BODY OR CALCULUS, SIMPLE (WRVU 2.81) 06/23/2024 10:00 AM EDT Office Visit Cardiology at [address] [place] [address] Mo Horne MD [facility] [place] [address] Scheduled Procedures Name Priority Associated Diagnoses Date/Ti me CYSTO, REMOVAL OF STENT, FOR EIGN BODY OR CALCULUS, SIMPLE (WRVU 2.81) NEPHROLITHIASIS 06/11/2024 1:03 PM EDT documented as of this encounter Visit Diagnoses Not on filedocumented in this encounter Care Teams Gasoline Pump Mechanic Relationship Specialty Start Date End Date Amira Hooks PA [address] [place] [address] PCP - General Family Medicine 07/25/22 documented as of this encounter
--- OUTSIDE RECORDS SUMMARY | 2024-06-04 20:41 | XMS_ITS | Encounter Summary ---
[place] [address] Care Team Providers Care Director Learning And Development Name Role Phone Amira Hooks Primary Care Provider Reason for Referral * Diagnostic Test (Routine) - Closed Specialty Diagnoses / Procedures Referred By Contac t Referred To Contact Radiology Diagnoses Nephrolithiasis Procedures CT Urogram Abelino Lazar MD [facility] [place] [address] [facility] [place] [address] Referral ID Status Reason Start Date Expiration Date V isits Requested Visits Authorized [id number] Closed Specialty Service Requested 02/17/2024 08/18/2025 1 1 Reason for Visit * Consultation (Routine) - Authorized Specialty Diagnoses / Procedures Referred By Contac t Referred To Contact Urology Diagnoses Hematuria, unspecified type Amira Hooks PA [address] [place] [address] [facility] [place] [address] Referral ID Status Reason Start Date Expiration Date Visits Requested Visits Authorized [id number] Authorized Consult, Test & Treat PCP Updated and/or Approved 2023 12/16/2024 6 6 Encounter Details Date Type Department Care Team (Late st Contact Info) Description 02/17/2024 3:20 PM EDT Office Visit Urology at [facility] [place] [place] [address] [facility] [place] [address] Nephrolithiasis; Hematuria, unspecified type Social History Tobacco Use Types Packs/Day Years Used Date Smoking Tobacco: Former Cigarettes 1.5 15 1 995 - 2009 Smokeless Tobacco: Former Chew Quit: 2013 Alcohol Use Standard Drinks/Week Comments No 0 (1 standard drink = 0.6 oz pur e alcohol) [facility] Inpatient Questions Answer Date Recorded Does [...] Sign Reading Time Taken Comments Blood Pressure 144/80 02/17/2024 3:17 PM EDT Pulse 77 02/17/2024 3:17 PM EDT Temperature - - Respiratory Rate - - Oxygen Saturation 97% 02/17/2024 3:17 PM EDT Inhaled Oxygen Concentration - - Weight - - Height - - Body Mass Index - - documented in this encounter Progress Notes * Abelino Lazar MD - 02/17/2024 3:20 PM EDT UROLOGY OUTPATIENT CLINIC NOTE CC: gross hematuria HPI: Rolo Aguilar is a 53 y.o. male who presents to clinic for evaluation of gross hematuria. First episode of painless gross hematuria in early December. Was seen by PCP who ordered a CTAP that showed a 2mm stone in the right mid ureter. No flank pain at that time. He presented to the ED on 01/04/24 for another episode of painless gross hematuria. Vitals/Labs were wnl and UA showed 4 RBCs. No imaging was completed at that time. He denies any fevers, chills, n/v. Since leaving the ED on 01/04/24 he has had intermittent right flank pain. Reported hx of left kidney stone but this was not seen on the last CT scan. He denies hx of stone passage. IPSS 0/0/0/0/0/0 QOL 1/6 PMH - CAD (stent 2017, ASA), afib (eliquis), PILAR, Bipolar, GERD, HTN PSH - Lap cholecystectomy 2017 FHX - no family hx of cancer or stones Social - 15 pack year smoker, quit 20 years - no EtOH or illicit drug use - currently unemployed REVIEW OF SYSTEM 02/16/2024 4:00 PM REVIEW OF SYSTEMS Constitutional Pain Ear / nose / throat / mouth None of the above Eyes None of the above Respiratory None of the above Cardiovascular None of the above Gastrointestinal Nausea, vomiting Heartburn, indigestion Constipation Change in stools Abdominal pain Feeling bloated Other stomach, intestine, or bowel symptoms Skin, hair None of the above Musculoskeletal Back pain Neurological None of the above Hematologic / Lymphatic None of the above Genitourinary Blood in urine Other urinary or genital symptoms Other Symptoms They say i have a kidney stone on the right PHYSICAL EXAM Temp: -- Heart Rate: [77] Resp: -- BP: (144)/(80) SpO2: [97 %] Heart Rate from SpO2: -- GEN: NAD. Resting comfortably. CV: Reg rate CHEST: Non labored on room air ABD: Soft, NT, ND EXTR: Moving spontaneously. Warm, 2+ pulses bilaterally. No edema. : Mild CVA tenderness SKIN: Warm and dry. NEURO: Alert and follows command. LABS 01/04/24 - Cr 0.82 UA today trace blood URINANALYSIS Component Value Date/Time SPGRAVITYUA 1.004 (L) 01/04/2024 1128 PHUADIP 7.0 01/04/2024 1128 PROTEINUADIP Trace (A) 01/04/2024 1128 GLUCOSEU Negative 01/04/2024 1128 KETONESUA Negative 01/04/2024 1128 UROBILIUADIP Normal 01/04/2024 1128 BLOODUADIP Large (A) 01/04/2024 1128 NITRATEUA Negative 01/04/2024 1128 LEUKOESTERUA Negative 01/04/2024 1128 WBCUA <1 01/04/2024 1128 BILIRUBINUA Negative 01/04/2024 1128 IMAGING 2mm right mid ureteral stone No other stones No hydronephrosis ASSESSMENT/PLAN #2mm right mid-ureteral stone #morbid obesity and significant co-morbidity Discussed rationale for further imaging to determine 1) if the stone has passed and 2) gross hematuria workup. We also discussed that a cystoscopy is also part of the gross hematuria workup. The patient expressed anxiety in having this done in the office. We agreed to proceed with CTU first. If thestone has not passed, we can proceed with OR ureteroscopy/laser lithotripsy and complete the cystosc opy at that time. If the stone has passed, can discuss the pros/cons of OR diagnostic cysto after the CTU has been completed. If the patient is going to the OR, would need anesthesia consult and holdeliquis x3d. All questions answered today. - CTU, next steps pending results Abelino Lazar MD * Rachel Carrasco MD - 02/17/2024 3:20 PM EDT I have seen and examined the patient [...] 2:00 PM EDT Office [place] [address] [facility] [place] [address] 06/11/2024 1:03 PM EDT Hospital Encounter [place] [phone] [facility] [place] [address] 06/11/2024 1:03 PM EDT - 06/11/2024 1:58 PM EDT Surgery [place] [phone] [facility] [place] [address] CYSTO, REMOVAL OF STENT, FOREIGN BODY OR CALCULUS, SIMPLE (WRVU 2.81) 06/23/2024 10:00 AM EDT Office Visit Cardiology at [address] [place] [address] [facility] [place] [address] Scheduled Orders Name Type Priority Associated Diagnoses Orde r Schedule Urine culture Clean Catch Urine Microbiology Routine Hematuria, unspecified type Expected: 02/17/2024, Expires: 02/16/2025 Scheduled Procedures Name Priority Associated Diagnoses Date/Ti me CYSTO, REMOVAL OF STENT, FOR EIGN BODY OR CALCULUS, SIMPLE (WRVU 2.81) NEPHROLITHIASIS 06/11/2024 1:03 PM EDT documented as of this encounter Procedures Procedure Name Priority Date/Time Associated Diagnosis Comments URINE CULTURE Routine 02/17/2024 5:00 PM EDT documented in this encounter Results * CT Urogram (02/26/2024 5:00 PM EDT) WORKSTATION ID [id number] DH RAD Anatomical Region Laterality Modality Abdomen, Pelvis [...] who have questions please contact the health medicare interviewer that requested your imaging first. ? Electronically signed by: JERRI PORTILLO MD, [facility] ([phone]), at 02/27/2024 3:25 PM Narrative 02/27/2024 3:25 PM EDT EXAMINATION: CT [...] patients who have questions please contactthe health medicare interviewer that requested your imaging first. Electronically signed by: JERRI PORTILLO MD, [facility]([phone]), at 02/27/2024 3:25 PM Rachel Carrasco MD IMG CT ORDERABLES * (ABNORMAL) Urine culture (02/17/2024 5:00 PM EDT) Urine Culture 10,000-49,000 cfu/ml mixed mucosal debbie Note: Culture shows multiple bacterial species suggesting mucosal contamination. (A) [facility] Clean Catch Urine 02/17/2024 5:00 PM EDT 02/17/2024 6:39 PM EDT Narrative Resulting Agency Comment Spec In Lab Rachel Carrasco MD MICROBIOLOGY - GENER AL ORDERABLES [facility] [place] [address] documented in this encounter Visit Diagnoses Diagnosis Nephrolithiasis Calculus of kidney Hematuria, unspecified type Nephrolithiasis Calculus of kidney documented in this encounter Care Teams Director Learning And Development Relationship Specialty Start Date End Date Amira Hooks PA [address] [place] [address] PCP - General Family Medicine 07/25/22 documented as of this encounter
--- OUTSIDE RECORDS SUMMARY | 2024-06-04 20:41 | XMS_ITS | Encounter Summary ---
Author Organization [facility] [place] [address] Care Team Providers Care Obstetric Anaesthetist Name Role Phone Amira Hooks Primary Care [...] 7.5) MODIFIER HOLMIUM LASER Rachel Carrasco MD [facility] [place] [address] [facility] Referral ID Status Reason Start Date Expiration Date Visits Re quested Visits Authorized [id number] 1 1 Encounter Details Date Type Department Care Team (Late st Contact Info) Description 04/09/2024 11:16 AM EDT Anesthesia Event [place] [phone] Amarjit Beth MD [facility] [place] [address] Marii Nieves CRNA [facility] [place] [address] Anesthesia Record Procedure Summary Procedure Name Responsible Anesthesiologist Anesthesia Start Time Anesthesia Stop Time CYSTO, STENT PLACEMENT (WRVU 2.82) (Right: Ureter) Amarjit Beth MD 04/09/24 1116 04/09/24 1253 Events Date Time Event Comment 04/09/2024 1054 1116 AN Verify 1116 Start 1116 An Start Data 1126 An Induction 1130 An Intubation 1149 Anesthesia Ready 1153 Procedure Start 1243 Extubation/LMA Out 1247 an stop data 1253 Recovery or ICU Handoff Kacey ent care was transferred to the destination unit staff after review of the patient's medical history, current anesthetic/surgical status and plan, according to the Provider Handoff Checklist. 1253 Stop Meds Name Total fentaNYL 100 mcg IV Lidocaine 100 mg Propofol 450 mg Rocuronium 50 mg Ondansetron 8 mg Dexamethasone 8 mg succinylcholine 140 mg ceFAZolin 3 g dexmedeTOMIDine 8 mcg sugammadex 200 mg propofol INF 164.43 mg lactated ringers infusion 800 mL * Agents Name O2 * Blood No blood administrations on file. Lines, Drains, and Airways Type Details Placement Removal PIV 04/09/24; 1057; ghmi-pua-thexme catheter system; 20 gauge; median vein (underside of arm), left; Anatomical Landmarks; US Not Used; Liz ALEJANDRO; distraction; 04/09/24; 1347 04/09/24 1057 by Alis Bunch RN 04/09/24 1347 by Ashley Taylor RN ETT Mask Ventilation: Ea sy (1); ETT Type: Cuffed; ETT Size: 8 mm; Indirect: Video; Notes: Asleep, Pre-O2, Stylette; Attempts: 1; Laryngoscopy Grade: 1; Secured at Teeth: 23 cm; Inserted by: Jessica Beth; Removal Date: 04/09/24; Removal Time: 1247 04/09/24 1130 by Marii Nieves CRNA 04/09/24 1247 by Marii Nieves CRNA documented in this encounter Social History Tobacco [...] OR Notes * Anesthesia Postprocedure Evaluation - Amarjit Beth MD - 04/09/2024 1:07 PM EDT Department of Anesthesiology Post-procedure Note Patient: Rolo Aguilar Procedure Summary Date: 04/09/24 Room / Location: [facility] OR [facility] MAIN OR Anesthesia Start: 1116 Anesthesia Stop: 1253 Procedure: CYSTO, STENT PLACEMENT (WRVU 2.82) (Right: Ureter) Diagnosis: (LEFT URETERAL STONE/HEMATURIA WORK UP) Surgeons: Rachel Carrasco MD Responsible Provider: Amarjit Beth MD Anesthesia Type: general ASA Status: 3 All Anesthesia Providers: Anesthesiologist: Amarjit Beth MD FORM PRESS OPERATOR: Marii Nieves CRNA Vitals Value Taken Time BP 121/56 04/09/24 1300 Temp 36.9 ??C (98.4 ??F) 04/09/24 1252 Pulse Resp 16 04/09/24 1252 SpO2 96 % 04/09/24 1306 Pain Level 0 04/09/24 1252 Vitals shown include unfiled device data. Patient Location: PACU/[facility] Level of Consciousness: Awake and Alert Pain Management: Satisfactory Analgesia PONV: None Cardiovascular Status: At Baseline Respiratory Status: Supplemental O2 (NC or FM) Postoperative Fluid Status: Intravascular EUvolemia Possible Anesthetic Complications: NONE apparent at time of evaluation Final Primary Anesthesia Type: General (The anesthetic type performed was the same as planned.) Comments: * Anesthesia Preprocedure Evaluation - Amarjit Beth MD - 04/08/2024 2:15 PM EDT Pre-Anesthesia Evaluation for: Rolo Aguilar a 53 y.o. male. Procedure(s): CYSTO, CYSTOURETHROSCOPY, DIAGNOSTIC (WRVU 1.53) PLCMNT URETERAL STENT, PERC, IMG GUIDANCE; EXISTING NEPH TRACT (WRVU 3.96) CYSTOURETEROSCOPY, LITHOTRIPSY (WRVU 7.5) MODIFIER HOLMIUM LASER Patient Active Problem List [...] (WRVU 11.47) performed by Colt Hewitt MD [facility] MAIN OR ??? PRO UNLISTED LAPAROSCOPIC PX LVR N/A 07/21/2018 LAPAROSCOPIC LIVER BIOPSY (WRVU 16.52) performed by Colt Hewitt MD at [facility] MAIN OR ??? PRO UPPER GI ENDOSCOPY, BIOPSY N/A 12/29/2017 UPPER GASTROINTESTINAL ENDOSCOPY,WITH BIOPSY SINGLE OR MULTIPLE (WRVU 2.49) performed by Yusuf Tucker MD at [facility] ENDOSCOPY ??? PRO UPPER GI ENDOSCOPY, BIOPSY N/A 03/08/2024 EGD WITH BIOPSY (WRVU 2.39) performed by Radu Silveira MD at [facility] ENDOSCOPY ??? PRO UPPER GI ENDOSCOPY, DIAGNOSTIC N/A 12/29/2017 EGD, UPPER GI ENDOSCOPY performed by Yusuf Tucker MD at [facility] ENDOSCOPY ??? TONSILLECTOMY Social History Tobacco Use ??? Smoking status: Former Current packs/day: 0.00 Average packs/day: 1.5 packs/day for 15.0 years (22.5 ttl pk-yrs) Types: Cigarettes Start date: 1994 Quit date: 2009 Years since quittin.4 ??? Smokeless tobacco: Former Types: Chew Quit date: 2013 Substance Use Topics ??? Alcohol use: No Social History Substance and Sexual Activity Drug Use Not Currently ??? Types: Benzodiazapines , Opioids Comment: oxycodone for back pain Allergies Allergen Reactions ??? Adenosine Palpitations tachycardia Other reaction(s): Rapid heart beat PT had an adverse reaction HR went up to 250%27s ??? Gabapentin ??? Wellbutrin [Bupropion Hcl] ??? Zoloft [Sertraline] Medications: MAR and/or home medications have been reviewed. Physical Exam: Preprocedure Vitals Current as of 04/08/24 1415 No BP, pulse, respiration, SpO2, or temperature recorded. Height: Weight: BMI: IBW: Airway Assessment: Mallampati: I TM distance: >3 FB Neck ROM: full Cardiovascular Assessment: Rate: normal Pulmonary Assessment: unlabored breathing Dental Assessment: - normal exam Misc Assessment: IV access: Peripheral line Last Filed Perioperative Cognitive Screening None Anesthesia Plan: ASA 3 general, with a(n) intravenous induction 53-year-old with left ureteral stone presenting for cysto/stent/laser lithotripsy. PMH: Obesity (BMI: 74.41 kg/m??), asthma (atrovent/no recent issue), CHF (lasix, torsemide), atrialfibrillation (apixaban LAST DOSE: 04/08, metoprolol), HTN (lisinopril), ASCVD (ASA, NTG), HLD (atorvastatin), GERD/Motility issues (Dexlansoprazole, neomycin, sucralfate, motility), anxiety (clonazepam, lamotrigine). Anesthetic Hx: No apparent issues with GA or MAC; noted to be Grade one with MAC4 NPO status: OK Plan GA Region - Other Informed Consent: Anesthetic plan and risks discussed with patient. Plan discussed with FORM PRESS OPERATOR. Anesthesia Screening documented in this encounter Plan of Treatment Upcoming Encounters Date Type Department Care Team (Latest Contact Info) Description 06/07/2024 2:00 PM EDT Office Visit [place] [phone] Joan Castro MD [facility] [place] [address] 06/11/2024 1:03 PM EDT Hospital Encounter [place] [phone] Rachel Carrasco MD [facility] [place] [address] 06/11/2024 1:03 PM EDT - 06/11/2024 1:58 PM EDT Surgery [place] [phone] Rachel Carrasco MD [facility] [place] [address] CYSTO, REMOVAL OF STENT, FOREIGN BODY OR CALCULUS, SIMPLE (WRVU 2.81) 06/23/2024 10:00 AM EDT Office Visit Cardiology at [address] [place] [address] Mo Horne MD [facility] [place] [address] Scheduled Procedures Name Priority Associated Diagnoses Date/Ti me CYSTO, REMOVAL OF STENT, FOR EIGN BODY OR CALCULUS, SIMPLE (WRVU 2.81) NEPHROLITHIASIS 06/11/2024 1:03 PM EDT documented as of this encounter Visit Diagnoses Not on filedocumented in this encounter Administered Medications Inactive Administered Medications - up to 3 most recent administrations Medication Order MAR Action Action Date Dose Rate Site ceFAZolin (Ancef) (100 mg/mL) injection solution Intravenous, PRN, Starting on Fri04/09/24 at 1149, Until Fri04/09/24 at 1307, Anesthesia Intra-op, Routine Given 04/09/2024 11:49 AM EDT 3 g dexAMETHasone (Decadron) injection Intravenous, PRN, Starting on Fri04/09/24 at 1157, Until Fri04/09/24 at 1307, Anesthesia Intra-op, Routine Given 04/09/2024 11:57 AM EDT 8 mg dexmedeTOMIDine (Precedex) (4 mcg/mL) bolus injection (Anesthsia) Intravenous, PRN, Starting on Fri04/09/24 at 1117, Until Fri04/09/24 at 1307, Anesthesia Intra-op, Routine Given 04/09/2024 11:19 AM EDT 4 mcg Given 04/09/2024 11:17 AM EDT 4 mcg fentaNYL (pf) (50 mcg/mL) multi-dose injection Intravenous, PRN, Starting on Fri04/09/24 at 1126, Until Fri04/09/24 at 1307, Anesthesia Intra-op, Routine Given 04/09/2024 11:26 AM EDT 100 mcg lactated ringers infusion 1,000 mL, at 100 mL/hr, Intravenous, CONTINUOUS, Starting on Fri04/09/24 at 1045, Until Fri04/09/24 at 1347, Day of Surgery (Day of Procedure) New Bag 04/09/2024 11:16 AM EDT lidocaine (pf) (Xylocaine) (20 mg/mL) 2% injection syringe Intravenous, PRN, Starting on Fri04/09/24 at 1126, Until Fri04/09/24 at 1307, Anesthesia Intra-op, Routine Given 04/09/2024 11:26 AM EDT 100 mg ondansetron (pf) (Zofran) (2 mg/mL) injection Intravenous, PRN, Starting on Fri04/09/24 at 1221, Until Fri04/09/24 at 1307, Anesthesia Intra-op, Routine Given 04/09/2024 12:21 PM EDT 8 mg propofoL (Diprivan) (10 mg/mL) infusion Intravenous, CONTINUOUS PRN, Starting on Fri04/09/24 at 1230, Until Fri04/09/24 at 1307, Anesthesia Intra-op, Routine New Bag 04/09/2024 12:30 PM EDT 150 mcg/kg/min 109.62 mL/hr propofoL (Diprivan) 10 mg/mL bolus injection (Anesthesia) Intravenous, PRN, Starting on Fri04/09/24 at 1126, Until Fri04/09/24 at 1307, Anesthesia Intra-op Given 04/09/2024 12:33 PM EDT 50 mg Given 04/09/2024 12:21 PM EDT 150 mg Given 04/09/2024 11:27 AM EDT 50 mg rocuronium (Zemuron) (10 mg/mL) multi-dose injection Intravenous, PRN, Starting on Fri04/09/24 at 1140, Until Fri04/09/24 at 1307, Anesthesia Intra-op, Routine Given 04/09/2024 11:40 AM EDT 50 mg succinylcholine (Anectine;Quelicin) (20 mg/mL) injection Intravenous, PRN, Starting on Fri04/09/24 at 1127, Until Fri04/09/24 at 1307, Anesthesia Intra-op, Routine Given 04/09/2024 11:27 AM EDT 140 mg sugammadex (Bridion) 100 mg/mL injection Intravenous, PRN, Starting on Fri04/09/24 at 1236, Until Fri04/09/24 at 1307, Anesthesia Intra-op, Routine Given 04/09/2024 12:36 PM EDT 200 mg documented in this encounter Care Teams Obstetric Anaesthetist Relationship Specialty Start Date End Date Amira Hooks PA [address] [place] [address] PCP - General Family Medicine 07/25/22 documented as of this encounter
--- OUTSIDE RECORDS SUMMARY | 2024-06-04 20:42 | XMS_ITS | Encounter Summary ---
Author Organization [facility] [place] [address] Care Team Providers Care Cooler Man Name Role Phone Amira Hooks Primary Care Provider [phone] Encounter Details Date Type Department Care Team (Latest Contact Info) Description 11/26/2023 Travel Social History Tobacco Use Types Packs/Day Years Used Date Smoking Tobacco: Former Cigarettes 1.5 15 1 995 - 2009 Smokeless Tobacco: Former Chew Quit: 2013 Alcohol Use Standard Drinks/Week Comments No 0 (1 standard drink = 0.6 oz pur e alcohol) [facility] Inpatient Questions Answer Date Recorded [...] 2:00 PM EDT Office [place] [address] Joan Castro MD [facility] [place] [address] 06/11/2024 1:03 PM EDT Hospital Encounter [place] [phone] Rachel Carrasco MD [facility] [place] [address] 06/11/2024 1:03 PM EDT - 06/11/2024 1:58 PM EDT Surgery [place] [phone] Rachel Carrasco MD [facility] [place] [address] CYSTO, REMOVAL OF STENT, FOREIGN BODY OR CALCULUS, SIMPLE (WRVU 2.81) 06/23/2024 10:00 AM EDT Office Visit Cardiology at [address] [address] Mo Horne MD [facility] [place] [address] Scheduled Procedures Name Priority Associated Diagnoses Date/Ti me CYSTO, REMOVAL OF STENT, FOR EIGN BODY OR CALCULUS, SIMPLE (WRVU 2.81) NEPHROLITHIASIS 06/11/2024 1:03 PM EDT documented as of this encounter Visit Diagnoses Not on filedocumented in this encounter Care Teams Cooler Man Relationship Specialty Start Date End Date Amira Hooks PA [address] [place] [address] PCP - General Family Medicine 07/25/22 documented as of this encounter
--- OUTSIDE RECORDS SUMMARY | 2024-06-04 20:42 | XMS_ITS | Encounter Summary ---
Author Organization [facility] Address [facility] [place] [address] Care Team Providers Care Tax Accountant Name Role Phone Amira Hooks Primary Care Provider Encounter Details Date Type Department Care Team (Late st Contact Info) Description 03/14/2023 Telephone Psychiatry [place] [phone] Joana Mabry, PhD [facility] [place] [address] Social History Tobacco Use Types Packs/Day Years Used Date Smoking Tobacco: Former Cigarettes 1.5 15 1 995 - 2009 Smokeless Tobacco: Former Chew Quit: 2014 Alcohol Use Standard Drinks/Week Comments No 0 (1 standard drink = 0.6 oz pur e alcohol) Sex and Gender Information Value Date Recorded Sex Assigned at Not on file Gender Identity Male 02/14/2021 11:07 PM EDT Sexual Orientation Not on file documented as of this encounter Plan of Treatment Upcoming Encounters Date Type Department Care Team (Latest Contact Info) Description 06/07/2024 2:00 PM EDT Office [place] [phone] Joan Castro MD [facility] [place] [address] 06/11/2024 1:03 PM EDT Hospital Encounter [place] [address] Rachel Carrasco MD [facility] [place] [address] 06/11/2024 1:03 PM EDT - 06/11/2024 1:58 PM EDT Surgery [place] [address] Rachel Carrasco MD [facility] [place] [address] CYSTO, REMOVAL OF STENT, FOREIGN BODY OR CALCULUS, SIMPLE (WRVU 2.81) 06/23/2024 10:00 AM EDT Office Visit Cardiology at [address] [place] [address] Mo Horne MD [facility] [place] [address] Scheduled Procedures Name Priority Associated Diagnoses Date/Ti me CYSTO, REMOVAL OF STENT, FOR EIGN BODY OR CALCULUS, SIMPLE (WRVU 2.81) NEPHROLITHIASIS 06/11/2024 1:03 PM EDT documented as of this encounter Visit Diagnoses Not on filedocumented in this encounter Care Teams Tax Accountant Relationship Specialty Start Date End Date Amira Hooks PA [address] [place] [address] PCP - General Family Medicine 07/25/22 documented as of this encounter
--- OUTSIDE RECORDS SUMMARY | 2024-06-04 20:42 | XMS_ITS | Encounter Summary ---
Author Organization [facility] Address [facility] [place] [address] Care Team Providers Care Threat Analyst Name Role Phone Amira Hooks Primary Care Provider Reason for Visit * Consultation (Routine) - Closed Specialty Diagnoses / Procedures Referred By Zeyad t Referred To Contact Weight and Wellness Diagnoses Class 3 severe obesity with body mass index (BMI) greater than or equal to 70 in adult, unspecified obesity type, unspecified whether serious comorbidity present Fadi Escobar MD [facility] [place] [address] [facility] [address] [place] [phone] Referral ID Status Reason Start Date Expiration Date V isits Requested Visits Authorized [id number] Closed Consult, Test & Treat 12/27/2021 12/27/2022 1 1 Encounter Details Date Type Department Care Team (Late st Contact Info) Description 08/07/2022 10:00 AM EDT TH Visit (TeleHealth) Weight and Wellness at [address] [address] Linh Carrillo MD [facility] DR MADELYN [facility] [address] PATIENT NOT SEEN Social History Tobacco Use Types Packs/Day Years Used Date Smoking Tobacco: Former Cigarettes 1.5 15 1 999 - 2013 Smokeless Tobacco: Former Chew Alcohol Use Standard Drinks/Week Comments No 0 (1 standard drink = 0.6 oz pur e alcohol) Sex and Gender Information Value Date Recorded Sex Assigned at Not on file Gender Identity Male 02/14/2021 11:07 PM EDT Sexual Orientation Not on file documented as of this encounter Progress Notes * Linh Carrillo MD - 08/07/2022 10:00 AM EDT This patient was not seen in this encounter. Unable to logon to Zoom visit. documented in this encounter Plan of Treatment Upcoming Encounters Date Type Department Care Team (Latest Contact Info) Description 06/07/2024 2:00 PM EDT Office Visit Gastroenterology at [place] [phone] Joan Castro MD [facility] [place] [address] 06/11/2024 1:03 PM EDT Hospital Encounter [place] [address] Rachel Carrasco MD [facility] [place] [address] 06/11/2024 1:03 PM EDT - 06/11/2024 1:58 PM EDT Surgery Main Operating Room [place] [phone] Rachel Carrasco MD [facility] [place] [address] CYSTO, REMOVAL OF STENT, FOREIGN BODY OR CALCULUS, SIMPLE (WRVU 2.81) 06/23/2024 10:00 AM EDT Office Visit Cardiology at [address] [place] [address] Mo Horne MD [facility] [place] [address] Scheduled Procedures Name Priority Associated Diagnoses Date/Ti me CYSTO, REMOVAL OF STENT, FOR EIGN BODY OR CALCULUS, SIMPLE (WRVU 2.81) NEPHROLITHIASIS 06/11/2024 1:03 PM EDT Scheduled Referrals Name Type Priority Associated Diagnoses Orde r Schedule Referral to [facility] Outpatient Referral Routine Class 3 severe obesity with body mass index (BMI) greater than or equal to 70 in adult, unspecified obesity type, unspecified whether serious comorbidity present Ordered: 12/27/2021 documented as of this encounter Visit Diagnoses Diagnosis DH PATIENT NOT SEEN documented in this encounter Care Teams Threat Analyst Relationship Specialty Start Date End Date Amira Hooks PA [address] [place] [phone] PCP - General Family Medicine 07/25/22 documented as of this encounter
--- OUTSIDE RECORDS SUMMARY | 2024-06-04 20:42 | XMS_ITS | Encounter Summary ---
[place] [address] Care Team Providers Care Structural Metal Fabricator Apprentice Name Role Phone Amira Hooks Primary Care Provider Encounter Details Date Type Department Care Team (Late st Contact Info) Description 12/24/2022 Telephone Psychiatry [place] [address] Twyla Mayfield Social History Tobacco Use Types Packs/Day Years [...] encounter Miscellaneous Notes * Telephone Encounter - Twyla Mayfield - 12/24/2022 11:49 AM EST Rolo Landis just called to return your call from yesterday. He is available to take a call today. Chiki documented in this encounter Plan of Treatment Upcoming Encounters Date Type Department Care Team (Latest Contact Info) Description 06/07/2024 2:00 PM EDT Office [place] [address] Joan Castro MD [facility] [place] [address] 06/11/2024 1:03 PM EDT Hospital Encounter Main Operating Room [address] Rachel Carrasco MD [facility] [address] 06/11/2024 1:03 PM EDT - 06/11/2024 1:58 PM EDT Surgery Main Operating Room [place] [address] Rachel Carrasco MD [facility] [address] CYSTO, REMOVAL OF STENT, FOREIGN BODY OR CALCULUS, SIMPLE (WRVU 2.81) 06/23/2024 10:00 AM EDT Office Visit Cardiology at [address] [address] Mo Horne MD [facility] [place] [address] Scheduled Procedures Name Priority Associated Diagnoses Date/Ti me CYSTO, REMOVAL OF STENT, FOR EIGN BODY OR CALCULUS, SIMPLE (WRVU 2.81) NEPHROLITHIASIS 06/11/2024 1:03 PM EDT documented as of this encounter Visit Diagnoses Not on filedocumented in this encounter Care Teams Structural Metal Fabricator Apprentice Relationship Specialty Start Date End Date Amira Hooks PA [address] [place] [phone] PCP - General Family Medicine 07/25/22 documented as of this encounter
--- OUTSIDE RECORDS SUMMARY | 2024-06-04 20:42 | XMS_ITS | Encounter Summary ---
Author Organization [facility] [place] [address] Care Team Providers Care Talent Coordinator Name Role Phone Amira Hooks Primary Care Provider [phone] Encounter Details Date Type Department Care Team (Latest Contact Info) Description 04/09/2023 Travel Social History Tobacco Use Types Packs/Day Years Used Date Smoking Tobacco: Former Cigarettes 1.5 15 1 995 - 2009 Smokeless Tobacco: Former Chew Quit: 2013 Alcohol Use Standard Drinks/Week Comments No 0 (1 standard drink = 0.6 oz pur e alcohol) [facility] Inpatient Questions Answer Date Recorded Does Anyone [...] 2:00 PM EDT Office [place] [address] Jaon Castro MD [facility] [place] [address] 06/11/2024 1:03 PM EDT Hospital Encounter Main [place] [phone] Rachel Carrasco MD [facility] [place] [address] 06/11/2024 1:03 PM EDT - 06/11/2024 1:58 PM EDT Surgery [place] [phone] Rachel Carrasco MD [facility] [place] [address] CYSTO, REMOVAL OF STENT, FOREIGN BODY OR CALCULUS, SIMPLE (WRVU 2.81) 06/23/2024 10:00 AM EDT Office Visit Cardiology at [address] [address] Mo Horne MD [facility] [address] Scheduled Procedures Name Priority Associated Diagnoses Date/Ti me CYSTO, REMOVAL OF STENT, FOR EIGN BODY OR CALCULUS, SIMPLE (WRVU 2.81) NEPHROLITHIASIS 06/11/2024 1:03 PM EDT documented as of this encounter Visit Diagnoses Not on filedocumented in this encounter Care Teams Talent Coordinator Relationship Specialty Start Date End Date Amira Hooks PA [address] [place] [phone] PCP - General Family Medicine 07/25/22 documented as of this encounter
--- OUTSIDE RECORDS SUMMARY | 2024-06-04 20:42 | XMS_ITS | Encounter Summary ---
[place] [address] Care Team Providers Care Application Software Developer Name Role Phone Amira Hooks Primary Care Provider Reason for Visit * Consultation (Routine) - Closed Specialty Diagnoses / Procedures Referred By Zeyad mishra Referred To Contact General Surgery Diagnoses Morbid obesity Blood glucose elevated Hypertension, unspecified type Other sleep apnea Amira Hooks PA [address] [place] [address] [facility] Gen Surgery [address] [place] [phone] Referral ID Status Reason Start Date Expiration Date V isits Requested Visits Authorized [id number] Closed Consult, Test & Treat PCP Updated and/or Approved 12/09/2022 12/09/2023 6 6 Encounter Details Date Type Department Care Team (Late st Contact Info) Description 12/30/2022 4:00 PM EST Notes [place] [address] Social History Tobacco Use Types Packs/Day Years [...] as of this encounter Progress Notes * Wolf Peyton L - 12/30/2022 4:00 PM EST PATIENT ATTENDED THE [facility] INTRO TO BARIATRIC ON 12/30/2022 FOR THE [facility]EN PROGRAM documented in this encounter Plan of Treatment Upcoming Encounters Date Type Department Care Team (Latest Contact Info) Description 06/07/2024 2:00 PM EDT Office [place] [address] Joan Castro MD [facility] [place] [address] 06/11/2024 1:03 PM EDT Hospital Encounter [place] [phone] Rachel Carrasco MD [facility] [place] [address] 06/11/2024 1:03 PM EDT - 06/11/2024 1:58 PM EDT Surgery [place] [address] Rachel Carrasco MD [facility] [place] [address] CYSTO, REMOVAL OF STENT, FOREIGN BODY OR CALCULUS, SIMPLE (WRVU 2.81) 06/23/2024 10:00 AM EDT Office Visit Cardiology at [address] [phone] Mo Horne MD [facility] [address] Scheduled Procedures Name Priority Associated Diagnoses Date/Ti me CYSTO, REMOVAL OF STENT, FOR EIGN BODY OR CALCULUS, SIMPLE (WRVU 2.81) NEPHROLITHIASIS 06/11/2024 1:03 PM EDT Scheduled Referrals Name Type Priority Associated Diagnoses Orde r Schedule Referral to Bariatric Surgery Program Outpatient Referral Routine Morbid obesity Blood glucose elevated Hypertension, unspecified type Other sleep apnea Ordered: 12/09/2022 documented as of this encounter Visit Diagnoses Not on filedocumented in this encounter Care Teams Application Software Developer Relationship Specialty Start Date End Date Amira Hooks PA [address] [place] [id number] PCP - General Family Medicine 07/25/22 documented as of this encounter
--- OUTSIDE RECORDS SUMMARY | 2024-06-04 20:42 | XMS_ITS | Encounter Summary ---
Author Organization [facility] Address [facility] [place] [address] Care Team Providers Care Counter Stitcher Name Role Phone Amira Hooks Primary Care Provider [phone] Encounter Details Date Type Department Care Team (Late st Contact Info) Description 01/07/2023 Telephone Psychiatry [place] [phone] Lori Dean Social History Tobacco Use Types Packs/Day Years [...] encounter Miscellaneous Notes * Telephone Encounter - Lori Dean - 01/07/2023 12:32 PM EST Left vm to schedule apt with Dr. Mabry documented in this encounter Plan of Treatment Upcoming Encounters Date Type Department Care Team (Latest Contact Info) Description 06/07/2024 2:00 PM EDT Office [place] [phone] Joan Castro MD [facility] [place] [address] 06/11/2024 1:03 PM EDT Hospital Encounter [place] [phone] Rachel Carrasco MD [facility] [place] [address] 06/11/2024 1:03 PM EDT - 06/11/2024 1:58 PM EDT Surgery Main Operating Room [place] [phone] Rachel Carrasco MD [facility] [place] [address] CYSTO, REMOVAL OF STENT, FOREIGN BODY OR CALCULUS, SIMPLE (WRVU 2.81) 06/23/2024 10:00 AM EDT Office Visit Cardiology at [address] [place] [address] Mo Horne MD [facility] [place] [address] Scheduled Procedures Name Priority Associated Diagnoses Date/Ti me CYSTO, REMOVAL OF STENT, FOR EIGN BODY OR CALCULUS, SIMPLE (WRVU 2.81) NEPHROLITHIASIS 06/11/2024 1:03 PM EDT documented as of this encounter Visit Diagnoses Not on filedocumented in this encounter Care Teams Counter Stitcher Relationship Specialty Start Date End Date Amira Hooks PA [address] [place] [phone] PCP - General Family Medicine 07/25/22 documented as of this encounter
--- OUTSIDE RECORDS SUMMARY | 2024-06-04 20:42 | XMS_ITS | Encounter Summary ---
Author Organization [facility] [place] [address] Care Team Providers Care Life Skills Instructor Name Role Phone Bin Bowman MD Primary Care Provider Reason for Visit * Reason Comments Medication Refill Encounter Details Date Type Department Care Team (Late st Contact Info) Description 06/05/2022 Refill Cardiology at [address] [phone] Fadi Escobar MD [facility] [place] [address] Medication Refill Social History Tobacco Use Types Packs/Day Years Used Date Smoking Tobacco: Former Cigarettes 1.5 15 1 - 2013 Smokeless Tobacco: Former Chew Alcohol [...] 2:00 PM EDT Office [place] [phone] Joan Castro MD [facility] [place] [address] 06/11/2024 1:03 PM EDT Hospital Encounter [place] [address] Rachel Carrasco MD [facility] [place] [address] 06/11/2024 1:03 PM EDT - 06/11/2024 1:58 PM EDT Surgery [place] [phone] Rachel Carrasco MD [facility] [place] [address] CYSTO, REMOVAL OF STENT, FOREIGN BODY OR CALCULUS, SIMPLE (WRVU 2.81) 06/23/2024 10:00 AM EDT Office Visit Cardiology at [address] [address] Mo Horne MD [facility] [place] [address] Scheduled Procedures Name Priority Associated Diagnoses Date/Ti me CYSTO, REMOVAL OF STENT, FOR EIGN BODY OR CALCULUS, SIMPLE (WRVU 2.81) NEPHROLITHIASIS 06/11/2024 1:03 PM EDT documented as of this encounter Visit Diagnoses Diagnosis Essential hypertension Unspecified essential hypertension documented in this encounter Care Teams Life Skills Instructor Relationship Specialty Start Date End Date Bin Bowman MD [address] [place] [phone] PCP - General General Internal Medicine 04/21/1707/11 documented as of this encounter
--- OUTSIDE RECORDS SUMMARY | 2024-06-04 20:42 | XMS_ITS | Encounter Summary ---
Author Organization [facility] [place] [address] Care Team Providers Care Runner Worker Name Role Phone Amira Hooks Primary Care Provider Encounter Details Date Type Department Care Team (Late st Contact Info) Description 08/07/2022 External Results Weight and Wellness at [facility] [address] [place] [address] Ariella Hansen, RN Social History Tobacco Use Types Packs/Day [...] 2:00 PM EDT Office [place] [address] Joan Castro MD [facility] [place] [address] 06/11/2024 1:03 PM EDT Hospital Encounter [place] [address] Rachel Carrasco MD [facility] [place] [address] 06/11/2024 1:03 PM EDT - 06/11/2024 1:58 PM EDT Surgery [place] [phone] Rachel Carrasco MD [facility] [place] [address] CYSTO, REMOVAL OF STENT, FOREIGN BODY OR CALCULUS, SIMPLE (WRVU 2.81) 06/23/2024 10:00 AM EDT Office Visit Cardiology at [address] [address] Mo Horne MD [facility] [place] [address] Scheduled Procedures Name Priority Associated Diagnoses Date/Ti me CYSTO, REMOVAL OF STENT, FOR EIGN BODY OR CALCULUS, SIMPLE (WRVU 2.81) NEPHROLITHIASIS 06/11/2024 1:03 PM EDT documented as of this encounter Procedures Procedure Name Priority Date/Time Associated Diagnosis Comments [facility] EXTERNAL LABS 2 Routine 12/26/2021 documented in this encounter Results * [facility] Labs 2 - External (12/26/2021) Hemoglobin A1C 5.3 BUN 14 Creatinine 1.2 AST 25 ALT 44 TSH 2.74 12/26/2021 Historical Provider POINT OF CARE EMILI T ORDERABLES documented in this encounter Visit Diagnoses Not on filedocumented in this encounter Care Teams Runner Worker Relationship Specialty Start Date End Date Amira Hooks PA [address] [place] [id number] PCP - General Family Medicine 07/25/22 documented as of this encounter
--- OUTSIDE RECORDS SUMMARY | 2024-06-04 20:42 | XMS_ITS | Encounter Summary ---
Author Organization [place] [address] Care Team Providers Care Metal Hardener Name Role Phone Amira Hooks Primary Care Provider [phone] Encounter Details Date Type Department Care Team (Late st Contact Info) Description 01/16/2023 Telephone Psychiatry [place] [phone] Lori Dean Social History Tobacco Use Types [...] * Telephone Encounter - Lori Dean - 01/16/2023 8:45 AM EST Left another to schedule with Dr. Mabry in person documented in this encounter Plan of Treatment Upcoming Encounters Date Type Department Care Team (Latest Contact Info) Description 06/07/2024 2:00 PM EDT Office [place] [address] Joan Castro MD [facility] [place] [address] 06/11/2024 1:03 PM EDT Hospital Encounter Main Operating Room [place] [phone] Rachel Carrasco MD [facility] [place] [address] 06/11/2024 1:03 PM EDT - 06/11/2024 1:58 PM EDT Surgery Main Operating Room [place] [phone] Rachel Carrasco MD [facility] [place] [address] CYSTO, REMOVAL OF STENT, FOREIGN BODY OR CALCULUS, SIMPLE (WRVU 2.81) 06/23/2024 10:00 AM EDT Office Visit Cardiology at [address] [place] [address] Mo Horne MD [facility] CARDIOLOGY [place] [phone] Scheduled Procedures Name Priority Associated Diagnoses Date/Ti me CYSTO, REMOVAL OF STENT, FOR EIGN BODY OR CALCULUS, SIMPLE (WRVU 2.81) NEPHROLITHIASIS 06/11/2024 1:03 PM EDT documented as of this encounter Visit Diagnoses Not on filedocumented in this encounter Care Teams Metal Hardener Relationship Specialty Start Date End Date Amira Hooks PA [address] [place] [phone] PCP - General Family Medicine 07/25/22 documented as of this encounter
--- OUTSIDE RECORDS SUMMARY | 2024-06-04 20:42 | XMS_ITS | Encounter Summary ---
Author Organization [facility] Address [facility] [place] [address] Care Team Providers Care Pedigree Researcher Name Role Phone Amira Hooks Primary Care Provider Encounter Details Date Type Department Care Team (Late st Contact Info) Description 12/23/2022 Telephone Psychiatry [place] [phone] Joana Mabry, PhD [facility] [place] [address] Social History Tobacco Use Types Packs/Day Years [...] 2:00 PM EDT Office [place] [phone] Joan Castro MD [facility] [place] [address] 06/11/2024 1:03 PM EDT Hospital Encounter [place] [address] Rachel Carrasco MD [facility] [address] 06/11/2024 1:03 PM EDT - 06/11/2024 1:58 PM EDT Surgery [place] [address] Rachel Carrasco MD [facility] [place] [address] CYSTO, REMOVAL OF STENT, FOREIGN BODY OR CALCULUS, SIMPLE (WRVU 2.81) 06/23/2024 10:00 AM EDT Office Visit Cardiology at [address] [place] [address] Mo Horne MD [facility] [place] [address] Scheduled Procedures Name Priority Associated Diagnoses Date/Ti me CYSTO, REMOVAL OF STENT, FOR EIGN BODY OR CALCULUS, SIMPLE (WRVU 2.81) NEPHROLITHIASIS 06/11/2024 1:03 PM EDT documented as of this encounter Visit Diagnoses Not on filedocumented in this encounter Care Teams Pedigree Researcher Relationship Specialty Start Date End Date Amira Hooks PA [address] [place] [phone] PCP - General Family Medicine 07/25/22 documented as of this encounter
--- OUTSIDE RECORDS SUMMARY | 2024-06-04 20:42 | XMS_ITS | Encounter Summary ---
Author Organization [facility] [place] [address] Care Team Providers Care Quality Supervisor Name Role Phone Amira Hooks Primary Care Provider [phone] Reason for Visit * Reason Comments Atrial Fibrillation Encounter Details Date Type Department Care Team (Late st Contact Info) Description 04/06/2023 10:19 PM EDT - 04/07/2023 12:25 AM EDT Emergency [place] [address] Darnell Ferguson MD [facility] DR [place]ER[place] [address] Racing heart beat Discharge Disposition: Home Social History Tobacco Use [...] Sign Reading Time Taken Comments Blood Pressure 155/85 04/06/2023 11:30 PM EDT Pulse 91 04/07/2023 12:00 AM EDT Temperature 36.6 ??C (97.8 ??F) 04/06/2023 10:12 PM E DT Respiratory Rate 20 04/07/2023 12:00 AM EDT Oxygen Saturation 97% 04/06/2023 11:30 PM EDT Inhaled Oxygen Concentration - - Weight - - Height 167.6 cm (5' 6) 04/06/2023 10:12 PM EDT Body Mass Index - - documented in this encounter Discharge Instructions * Discharge Instructions* Faina Shipley MD - 04/06/2023 11:53 PM EDT You were seen in the [facility] emergency department. Your work-up here was reassuring. Atthis time we recommend following up with your primary care provider. Please return to the emergency department if you develop any chest pain, difficulty breathing, feellightheaded or lose consciousness, or if you have any other concerns. documented in this encounter Medications at Time of Discharge Medication Sig Dispensed Refills Start Date End Date Dexilant [address] capsule Take 60 mg by mouth daily. 04/02/2023 loratadine (Claritin) 10 mg Tablet Take 10 mg by mouth daily as needed. 04/02/2023 apixaban (Eliquis) 5 mg TabletIndications:Atr ial flutter, unspecified type Take 1 tablet by mouth 2 times daily. 180 tablet 1 04/24/2022 atorvastatin (Lipitor) 20 mg TabletIndications:Hyp erlipidemia, unspecified hyperlipidemia type Take 1 tablet by [...] g 1 12/19/2020 lisinopriL (Prinivil;Zestril) 2.5 mg TabletIndications:Ess ential hypertension Take 1 tablet by mouth daily. [...] 3 times daily as needed for Anxiety. Trulicity 0.75 mg/0.5 mL Pen Injector INJECT 3/4 MG SUBCUTANEOUSLY ONCE A WEEK FOR 4 WEEKS, THEN INCREASE TO 1.5MG WEEKLY IF TOLERATED. 08/09/2022 11/26/2023 pantoprazole EC (Protonix) 40 mg Tablet, Delayed Release (E.C.) Take 1 tablet by mouth daily. 90 tablet 3 03/19/2021 06/18/2023 documented as of this encounter ED Notes * Faina Shipley MD - 04/07/2023 12:25 AM EDT ED Resident Note HPI: Rolo Aguilar is a 52 y.o. male with past medical history significant for paroxysmal atrial fibrillation (on Eliquis), CAD who presents to the Emergency Department with concern for atrial fibrillation. History obtained from patient and his . Patient noticed his heart racing tonight and was concerned that he was in atrial fibrillation. Hewas wearing his Apple Watch, which did not show that he was in atrial fibrillation. He notes that his heart rate was going from 80-100 which is faster than usual for him. He has not had a sensation like this since he had his last episode of atrial fibrillation, which has not occurred in the year and a half since his ablation. He called his Phosphatic Fertilizer Supervisor, and it was recommended he take an additional dose of metoprolol 50 mg. He has not missed any of his regular medications. What is most concerning to him is that he feels bloated and that he feels short of breath in his stomach. This sensation has been ongoing for weeks, and he is concerned that it is a side effect of Trulicity. He is alsofelt nauseous since starting this medication and has been eating and drinking less than usual. He denies recent illness, fever, cough, vomiting, chest pain, leg swelling. Has intermittent diarrhea. ROS as per HPI Vitals: ED Triage Vitals [04/06/23 2212] BP: 134/85 Heart Rate: (!) 109 Resp: 18 Temp: 36.6 ??C (97.8 ??F) Temp src: Temporal SpO2: 99 % O2 Device: RA O2 Flow Rate (L/min): n/a Physical Exam Vitals and nursing note reviewed. Constitutional: General: He is not in acute distress. Cardiovascular: Rate and Rhythm: Normal rate and regular rhythm. Pulses: Normal pulses. Heart sounds: Normal heart sounds. Pulmonary: Effort: Pulmonary effort is normal. No respiratory distress. Breath sounds: Normal breath sounds. Abdominal: Palpations: Abdomen is soft. Tenderness: There is no abdominal tenderness. Musculoskeletal: Right lower leg: No edema. Left lower leg: No edema. Skin: General: Skin is dry. Neurological: Mental Status: He is alert and oriented to person, place, and time. ED Course as of 04/07/23 0353 Sun April 06, 2023 1107 Patient decline IV fluids and Mg repletion at this time. Assessment and Plan: Rolo Aguilar is a 52 y.o. male with past medical history significant for paroxysmal atrial fibrillation (on Eliquis), CAD who presents to the Emergency Department with concern for atrial fibrillation. ECG demonstrates sinus tachycardia. Mild ST depressions in V3 and V4. Patient is without any chest pain or other symptoms to suggest ACS. Exam is not concerning for any signs of heart failure. No newleg swelling or hypoxia, patient is anticoagulated on Eliquis, I think PE is less likely cause of his symptoms. No infectious symptoms to suggest pneumonia. No abdominal tenderness on exam to suggestacute cause of bloating. Has been having less p.o. intake due to Trulicity, and dehydration may be contributing. Encouraged patient to discuss with his primary care provider about his concerns regarding this medication, and if there are any other options. He has been making many lifestyle modifications in the meantime. Offered patient IV fluids and magnesium to help with symptoms of palpitations,however he declined and would like to go home at this time. Will discharge with plan for Primary care and/or Cardiology follow-up. The visit findings, diagnosis, and care plan were discussed with the patient. The diagnosis and care plans discussions were outlined in the discharge instructions. The patient expressed understanding of the details of the visit, the return precautions and that he should returnto the ER at any time for worsening symptoms, new symptoms, or other concerns. he agrees with the follow- up plan. Faina Shipley MD Resident 04/07/23 2300 Associated attestation - Darnell Ferguson MD - 04/07/2023 11:08 PM EDT ED ATTENDING ATTESTATION NOTE The patient was seen in conjunction with Dr. Shipley, the resident physician. I have independentlyperformed the garcia portions of the history and physical exam. I have reviewed the nursing notes, vital signs, and all diagnostic studies personally including labs, imaging studies and EKGs. I have discussed the details of the case with the resident and agree with the assessment and plan as describedin the resident note unless noted otherwise. * Mahogany Butterfield RN - 04/06/2023 11:43 PM EDT 2310: resident at bedside. Pt resting. No needs. documented in this encounter Miscellaneous Notes * ED Triage - Deepika To RN - 04/06/2023 10:14 PM EDT HPI (Adult) Stated Reason for Visit: I think I am in afib again. My heart rate has been 100-105 since 1900.I feel some SOB. History Obtained From: patient Pt. Presents with rapid heartrate since 1900. Pt. With tachycardia at triage. + nausea and SOB and feels dizzy with standing or sitting. Pt. Has not been in afib since his ablation over 2 years ago. documented in this encounter Plan of Treatment Upcoming Encounters Date Type Department Care Team (Latest Contact Info) Description 06/07/2024 2:00 PM EDT Office [place] [phone] Joan Castro MD [facility] [place] [address] 06/11/2024 1:03 PM EDT Hospital Encounter [place] [address] Rachel Carrasco MD [facility] [place] [address] 06/11/2024 1:03 PM EDT - 06/11/2024 1:58 PM EDT Surgery [place] [phone] Rachel Carrasco MD [facility] [place] [address] CYSTO, REMOVAL OF STENT, FOREIGN BODY OR CALCULUS, SIMPLE (WRVU 2.81) 06/23/2024 10:00 AM EDT Office Visit Cardiology at [address] [place] [address] Mo Horne MD [facility] [place] [address] Scheduled Procedures Name Priority Associated Diagnoses Date/Ti me CYSTO, REMOVAL OF STENT, FOR EIGN BODY OR CALCULUS, SIMPLE (WRVU 2.81) NEPHROLITHIASIS 06/11/2024 1:03 PM EDT documented as of this encounter Procedures Procedure Name Priority Date/Time Associated Diagnosis Comments HC THYROID STIMULATING HORMONE, SERUM STAT 04/06/2023 10:30 PM EDT HEMOGRAM STAT 04/06/2023 10:30 PM EDT DIFFERENTIAL, AUTOMATED STAT 04/06/2023 10:30 PM EDT BLUE TUBE HOLD STAT 04/06/2023 10:30 PM EDT HC CBC,PLT & AUTO DIFF STAT 04/06/2023 10:30 PM EDT HC MAGNESIUM, SERUM STAT 04/06/2023 1 0:30 PM EDT BASIC METABOLIC PANEL (NON-FASTING) STAT 04/06/2023 10:30 PM EDT EKG 12-LEAD STAT 04/06/2023 10:24 PM EDT documented in this encounter Results * Blue Tube HOLD (04/06/2023 10:30 PM EDT) [facility] Blue Hold Sample in lab. [facility] Blood Venous Draw / Unknown 04/06/2023 10:30 PM EDT 04/06/2023 10:47 PM EDT Faina Grijalva MD HEMATOLOGY ORDERAB LES [facility] [place] [address] * (ABNORMAL) Differential, Automated (04/06/2023 10:30 PM EDT) [facility] Neutrophils % 71.5 % [facility] Neutr Abs (ANC) 6.97(H) 1.70 - 6.10 x10(3)/mc L [facility] Lymphocytes % 19.3 % [facility] Lymphocytes Abs 1.9 0.9 - 3.2 x10(3)/mc L [facility] Monocytes % 7.4 % [facility] Monocyte Abs 0.7 0.3 - 0.9 x10(3)/mc L [facility] Eosinophils % 0.9 % [facility] Eosinophils Abs 0.1 0.0 - 0.4 x10(3)/[facility] Basophils % 0.5 % [facility] Basophils Abs 0.0 0.0 - 0.1 x10(3)/[facility] Immature Gran % 0.40 % [facility] Comment: Immature granulocytes(IG's)percentage and absolute count will include metamyelocytes, myelocytes, and promyelocytes. Blood smears from CBCs yielding IG's will be scanned manually for concordance. If this scan disagrees with the automated IG or if promyelocytes are noted, a manual differential will be performed. Amy Gran Abs 0.04 0.00 - 0.04 x10(3)/[facility] Blood 04/06/2023 10:3 0 PM EDT 04/06/2023 10:46 PM EDT Narrative Resulting Agency Comment Spec In Lab Faina Grijalva MD HEMATOLOGY ORDERAB LES Performing Organization Address City/State/[facility] Co de Phone Number [facility] [place] [address] * (ABNORMAL) Hemogram (04/06/2023 10:30 PM EDT) WBC 9.8(H) 4.0 - 9.5 x10(3)/[facility] RBC 5.07 4.58 - 5.54 x10(6)/[facility] Hemoglobin 14.3 13.7 - 16.5 g/dL [facility] Hematocrit 43.4 40.5 - 48.5 % [facility] MCV 85.6 82.9 - 93.1 fL [facility] MCH 28.2 27.5 - 32.1 pg [facility] MCHC 32.9 32.0 - 35.7 g/dL [facility] Platelets 241 145 - 357 x10(3)/[facility] RDWSD 45.2(H) 36.0 - 45.0 fL [facility] RDWCV 14.6(H) 11.4 - 13.8 % [facility] MPV 9.9 7.6 - 12.9 [facility]ORY nRBC % Auto 0.0 % [facility] nRBC Abs Auto 0.000 0.000 - 0.000 x10(3)/[facility] Blood 04/06/2023 10:3 0 PM EDT 04/06/2023 10:46 PM EDT Narrative Resulting Agency Comment Spec In Lab Faina Grijalva MD HEMATOLOGY ORDERAB LES Performing Organization Address [facility] Co de Phone Number [facility] [place] [address] * TSH Sandoval (04/06/2023 10:30 PM EDT) TSH 2.28 0.27 - 4.20 mcIU/mL [facility] Comment: Reference Interval (mcIU/mL): Females: ??First Trimester: 0.23-3.88 ??Second Trimester: 0.22-3.90 ??Third Trimester: 0.44-4.66 Blood 04/06/2023 10:3 0 PM EDT 04/06/2023 10:46 PM EDT Narrative Resulting Agency Comment Spec In Lab Darnell Ferguson MD CHEMISTRY ORDERABLES [facility] [place] [address] * Magnesium (04/06/2023 10:30 PM EDT) Magnesium 0.82 0.69 - 1.07 mmol/L [facility] Blood 04/06/2023 10:3 0 PM EDT 04/06/2023 10:46 PM EDT Narrative Resulting Agency Comment Spec In Lab Darnell Ferguson MD CHEMISTRY ORDERABLES [facility] [place] [address] * (ABNORMAL) Basic Metabolic Panel (non-fasting) (04/06/2023 10:30 PM EDT) Glucose Lvl 104 65 - 199 mg/dL [facility] Comment:Diabetes: >=200 mg/d L plus symptoms BUN 7(L) 10 - 20 mg/dL [facility] Creatinine 0.92 0.80 - 1.50 mg/dL [facility] Sodium 143 135 - 145 mmol/L [facility] Potassium 3.6 3.5 - 5.0 mmol/L [facility] Comment: Please note: ??Patients with WBC >100,000 may have falsely elevated Potassium levels. ??For accurate Potassium quantification in these patients send serum separator tube (gold top) for subsequent determinations. ??Contact the Clinical Chemistry Laboratory if there are any questions. Chloride 106 98 - 107 mmol/L [facility] CO2 26 22 - 31 mmol/L [facility] Anion Gap 11 5 - 15 mmol/L [facility] Calcium 9.6 8.5 - 10.5 mg/dL [facility] Estimated GFR 99 >=60 mL/min/1. 73 m?? [facility] [...] and symptoms in addition to eGFR. Blood 04/06/2023 10:3 0 PM EDT 04/06/2023 10:46 PM EDT Narrative Resulting Agency Comment Spec In Lab Darnell Ferguson MD CHEMISTRY ORDERABLES Performing Organization Address City/[facility]/ZIP Co de Phone Number [facility] [place] [address] * EKG 12 Lead (04/06/2023 10:24 PM EDT) Ventricular rate 107 BPM MUSE SYSTEM Atrial Rate 107 BPM MUSE SYSTEM P-R Interval 160 ms MUSE SYSTEM QRS Duration 94 ms MUSE SYSTEM Q-T Interval 360 ms MUSE SYSTEM QTC Calculated (Bezet) 480 ms MUSE SYSTEM Calculated P Norman 26 degrees MUSE SYSTEM Calculated R Norman 55 degrees MUSE SYSTEM Calculated T Norman 41 degrees MUSE SYSTEM INTERPRETATION Sinus tachycardia Nonspecific ST abnormality Abnormal ECG When compared with ECG of 18-SEP-2022 09:30, Vent. rate has increased BY ??[address] now depressed in Anterior leads QT has lengthened Confirmed by MD Alecia, Ruperto Moya ([id number]) on 04/09/2023 4:15:28 PM MUSE SYSTEM 04/06/2023 10:2 4 PM EDT 04/09/2023 4:15 PM EDT Darnell Ferguson MD ECG ORDERABLES Performing Organization Address City/[facility] Co de Phone Number MUSE SYSTEM documented in this encounter Visit Diagnoses Diagnosis Racing heart beat Tachycardia, unspecified documented in this encounter Care Teams Quality Supervisor Relationship Specialty Start Date End Date Amira Hooks PA [address] [place] [address], [place] [address] PCP - General Family Medicine 07/25/22 documented as of this encounter
--- OUTSIDE RECORDS SUMMARY | 2024-06-04 20:42 | XMS_ITS | Encounter Summary ---
Author Organization [facility] [place] [address] Care Team Providers Care Airport Screener Name Role Phone Amira Hooks Primary Care Provider Encounter Details Date Type Department Care Team (Latest Contact Info) Description 04/07/2023 Travel Social History Tobacco Use Types Packs/Day Years Used Date Smoking Tobacco: Former Cigarettes 1.5 15 1 995 - 2009 Smokeless Tobacco: Former Chew Quit: 2013 Alcohol Use Standard Drinks/Week Comments No 0 (1 standard drink = 0.6 oz pur e alcohol) [facility] Inpatient Questions Answer Date Recorded Does Anyone [...] PM EDT Office Visit [place] [address] Jaon Castro MD [facility] [place] [address] 06/11/2024 1:03 PM EDT Hospital Encounter [place] [phone] Rachel Carrasco MD [facility] [place] [address] 06/11/2024 1:03 PM EDT - 06/11/2024 1:58 PM EDT Surgery [place] [phone] Rachel Carrasco MD [facility] [place] [address] CYSTO, REMOVAL OF STENT, FOREIGN BODY OR CALCULUS, SIMPLE (WRVU 2.81) 06/23/2024 10:00 AM EDT Office Visit Cardiology at [address] [address] Mo Horne MD [facility] [place] [address] Scheduled Procedures Name Priority Associated Diagnoses Date/Ti me CYSTO, REMOVAL OF STENT, FOR EIGN BODY OR CALCULUS, SIMPLE (WRVU 2.81) NEPHROLITHIASIS 06/11/2024 1:03 PM EDT documented as of this encounter Visit Diagnoses Not on filedocumented in this encounter Care Teams Airport Screener Relationship Specialty Start Date End Date Amira Hooks PA [address] [place] [id number] PCP - General Family Medicine 07/25/22 documented as of this encounter
--- OUTSIDE RECORDS SUMMARY | 2024-06-04 20:42 | XMS_ITS | Encounter Summary ---
[place] [address] Care Team Providers Care Theatre Instructor Name Role Phone Amira Hooks Primary Care Provider Encounter Details Date Type Department Care Team (Late st Contact Info) Description 12/08/2023 Telephone [place] [address] Violet Perrin Social History Tobacco Use Types Packs/Day Years [...] encounter Miscellaneous Notes * Telephone Encounter - Violet Perrin - 12/08/2023 8:41 AM EST Rolo Aguilar [id number] Diagnosis/Indication: Endoscopy (worsening GERD and dyspepsia despite high dose acid reduction, r/oGOO, H pylori; prior TTG IgA neg) + Colonoscopy (screening, first time, avg risk). Needs MAC. Can add to consult time, Friday the at 11am. Please review patient chart to confirm if [...] Have you ever had a/an Upper Endoscopy & Colonoscopy before? Yes: Date 1st time colo. Egd here If yes, did you have any problems with the procedure (such as waking up during the procedure, pain or difficulties afterwards, etc.)? No What type of sedation was used: General Anesthesia Do you take any blood thinners or have you been diagnosed with a bleeding disorder that increases your risk of bleeding with procedures? Yes: Type: eliquis Do you have a Pacemaker or Defibrillator device? If yes, send pool message to Cardiology with patient information and date or procedure. No Are you a diabetic? If yes, call PCP/managing provider to discuss use of prep and any questions or concerns related to. No Do you take any iron supplements or vitamins that contain iron? No Do you have a preference regarding the gender of your provider? Yes tormey ANESTHESIA QUESTIONS (YES to any question, please book with Anesthesia support) Have you ever been diagnosed with Pulmonary Hypertension and/or Congential Heart Disease? Yes Have you been diagnosed with A-Fib (atrial fibrillation) that is NOT being well controled with medications? Yes Have you ever had an allergic or [...] a period of time? No Do you take prescription narcotic pain medications, including suboxone or methodone? No SCHEDULING CONFIRMATIONS: Please note any and all [...] your procedure. Who will likely be your motorcycle delivery driver for the procedure? *Please Verify the height and weight, and adjust if height and/or weight have changed* Estimated body mass index is 75.34 kg/m?? as calculated from the following: Height as of 11/26/23: 167.6 cm (5' 6). Weight as of 11/26/23: 211.7 kg (466 lb 12.8 oz). Age:52 y.o. documented in this encounter Plan of Treatment Upcoming Encounters Date Type Department Care Team (Latest Contact Info) Description 06/07/2024 2:00 PM EDT Office Visit [place] [phone] Joan Castro MD [facility] [place] [address] 06/11/2024 1:03 PM EDT Hospital Encounter [place] [phone] Rachel Carrasco MD [facility] [place] [address] 06/11/2024 1:03 PM EDT - 06/11/2024 1:58 PM EDT Surgery [place] [phone] Rachel Carrasco MD [facility] [place] [address] CYSTO, REMOVAL OF STENT, FOREIGN BODY OR CALCULUS, SIMPLE (WRVU 2.81) 06/23/2024 10:00 AM EDT Office Visit Cardiology at [address] [place] [address] Mo Horne MD [facility] [place] [address] Scheduled Procedures Name Priority Associated Diagnoses Date/Ti me CYSTO, REMOVAL OF STENT, FOR EIGN BODY OR CALCULUS, SIMPLE (WRVU 2.81) NEPHROLITHIASIS 06/11/2024 1:03 PM EDT documented as of this encounter Visit Diagnoses Not on filedocumented in this encounter Care Teams Theatre Instructor Relationship Specialty Start Date End Date Amira Hooks PA [address] [place] [id number] PCP - General Family Medicine 07/25/22 documented as of this encounter
--- OUTSIDE RECORDS SUMMARY | 2024-06-04 20:42 | XMS_ITS | Encounter Summary ---
Author Organization [facility] Address [facility] [place] [address] Care Team Providers Care Provider Scribe Name Role Phone Amira Hooks Primary Care Provider Encounter Details Date Type Department Care Team (Late st Contact Info) Description 04/09/2023 10:00 AM EDT Office Visit Psychiatry [place] [address] Joana Mabry, PhD [facility] [place] [address] Post-traumatic stress disorder, unspecified Social History Tobacco Use Types Packs/Day Years [...] as of this encounter Progress Notes * Joana Mabry, PhD - 04/09/2023 10:00 AM EDT INDIVIDUAL THERAPY PROGRESS NOTE CPT CODES 43653, 11950, [id number] LOCATION: Office SESSION DURATION: 45 minutes ATTENDEES: Patient PRIMARY COMPLAINT/DIAGNOSIS: Post-traumatic stress disorder (PTSD) TREATMENT MODALITY: CBT PATIENT REPORT OF CURRENT FUNCTIONING/CHANGES: The patient reported a recent emergency room trip since we last met, related to dehydration which he believes to be related to a medication he has been taking for weight loss. He denied any changes or increased levels of distress following our last appointment. CENTRAL THEME OF SESSION: Discuss common symptoms in PTSD, introduce SUDS (subjective units of distress scale) IN-SESSION PROCEDURES: During today's session, we checked in about any changes in symptoms since welast met. The bulk of the session was spent discussing common responses to trauma, as well as introducing the SUDS scale and discussing rationale and plans for in-vivo exposure. We discussed common responses to trauma, and how these show up for Mr. Aguilar, including avoidance (things that remindhim of the hospital, sleep), reexperiencing and experiencing nightmares, trouble concentrating, feelings of loss of control, and changes in relationships. We discussed the rationale for in-vivo exposures which we plan to begin during our next session, and introduced the SUDS scale and identified ind ividualized anchors. CLINICAL FINDINGS: PROGRESS FROM BASELINE: same as pre-treatment PROGRESS FROM LAST SESSION:same as last session Patient-reported Psychiatry Follow-up scores and responses: PHQ9 04/08/2023 10:41 AM PHQ-9 Patient Reported Responses Little interest or pleasure Several Days Down, depressed, hopeless Several Days Trouble sleeping More than half the days Tired or no energy Several Days Poor appetite or overeating Several days Feeling like a failure Not at all Trouble concentrating (newspaper) Several Days Moving or speaking slowly Not at all Would be better off Not at all PHQ-9 Score 7 (Mild Depression) GAD7 04/08/2023 10:41 AM ANGELO-7 Patient Reported Responses Nervous, anxious (Patient) More than half the days Unable to stop worrying (Patient) More than half the days Worrying about different things (Patient) More than half the days Trouble relaxing (Patient) More than half the days Restless (Patient) Several days Easily annoyed, irritable (Patient) Several days Afraid something awful will happen (Patient) Several days Difficulty (Patient) Somewhat difficult ANGELO-7 Score (Patient) 11 (Moderate Anxiety) Psychiatry Improvement Scale: 04/08/2023 10:41 AM Psychiatry Improvement Scale Improvement Scale No change MENTAL STATUS EXAM: AFFECT: Appropriate. BEHAVIOR: WNL COGNITION: Cognition grossly intact. THOUGHT CONTENT: denied suicidal ideation ASSESSMENT/OBSERVATIONS: Mr. Aguilar was on-time for this appointment, dressed and groomed appropriately. He was appropriately engaged during the session, speech was normal pitch/rate/rhythm, thought content logical and linear, remaining on-topic throughout the session. He initially had difficulty identifying a range of SUDS levels of symptoms, but with further discussion was able to identify triggers which did not fall in the extremes of the scale. PLAN: Revised goals or interventions: Continue with plan to do PE for PTSD; during our next session, we will select and complete an in-vivo exposure. Safety Risk Management: No new risks identified. Patient denied SI. Homework: Consider possible in-vivo exposures. Next Appointment: 04/16 at 10am For mental health emergencies, call 988 from anywhere in the [facility]. State specific information for [place] and [place] crisis services are as follows and should be used to access local resources: [facility] Crises Services [facility] Crisis Line text or call Visit www.Venga for further information [place] Call your local [facility] crisis line at: [place]: Counseling Service of [facility] [phone] [place]: [facility] Services [phone] [place]: [facility] [phone] [place]: [facility] [phone] [place]: [facility] [phone] [place] israel [place]: [facility] Counseling and Support [phone] [place]: [facility] Mental Health [phone] on weekdays 8AM-4:30PM and [phone] on nights and weekends [place]: [facility] [place]: [facility] [phone] [place]: [facility] [phone] [place]: [facility] Services, [place]: HCRS [place]: HCRS or Text [place] to [phone] For further information for [place] residents: https://mentalhealth.[place].[facility]/services/emergency-services/noj-esv-twgn National Suicide Prevention Hotline: For patients cared for in the Department of Psychiatry, you can reach your mental health clinician at [phone]. Joana Mabry, PhD documented in this encounter Plan of Treatment Upcoming Encounters Date Type Department Care Team (Latest Contact Info) Description 06/07/2024 2:00 PM EDT Office [place] [phone] Joan Castro MD [facility] [place] [address] 06/11/2024 1:03 PM EDT Hospital Encounter [place] [address] Rachel Carrasco MD [facility] [place] [address] 06/11/2024 1:03 PM EDT - 06/11/2024 1:58 PM EDT Surgery [place] [phone] Rachel Carrasco MD [facility] [place] [address] CYSTO, REMOVAL OF STENT, FOREIGN BODY OR CALCULUS, SIMPLE (WRVU 2.81) 06/23/2024 10:00 AM EDT Office Visit Cardiology at [address] [place] [address] Mo Horne MD [facility] [place] [address] Scheduled Procedures Name Priority Associated Diagnoses Date/Ti me CYSTO, REMOVAL OF STENT, FOR EIGN BODY OR CALCULUS, SIMPLE (WRVU 2.81) NEPHROLITHIASIS 06/11/2024 1:03 PM EDT documented as of this encounter Visit Diagnoses Diagnosis Post-traumatic stress disorder, unspecified documented in this encounter Care Teams Provider Scribe Relationship Specialty Start Date End Date Amira Hooks PA [address] [place] [phone] PCP - General Family Medicine 07/25/22 documented as of this encounter
--- OUTSIDE RECORDS SUMMARY | 2024-06-04 20:42 | XMS_ITS | Encounter Summary ---
Author Organization [facility] [place] [address] Care Team Providers Care Business Change Manager Name Role Phone Amira Hooks Primary Care Provider Reason for Referral * Diagnostic Test (Routine) - Closed Specialty Diagnoses / Procedures Referred By Zeyad mishra Referred To Contact Gastroenterology Diagnoses Dyspepsia Abdominal bloating HBT - laculose - bloating Procedures Breath Hydrogen Test Josh Castro MD [facility] [place] [address] [address] Referral ID Status Reason Start Date Expiration Date V isits Requested Visits Authorized [id number] Closed Consult, Test & Treat 11/26/2023 11/25/2024 1 1 Reason for Visit * Consultation (Routine) - Closed Specialty Diagnoses / Procedures Referred By Zeyad mishra Referred To Contact Gastroenterology Diagnoses Constipation, unspecified constipation type Gastroesophageal reflux disease, unspecified whether esophagitis present motility- constipation (former magalys pt ) Amira Hooks PA [address] [place] [address] [facility] [address] [place] [phone] Referral ID Status Reason Start Date Expiration Date V isits Requested Visits Authorized [id number] Closed Consult, Test & Treat PCP Updated and/or Approved 04/20/2023 04/19/2024 6 6 Encounter Details Date Type Department Care Team (Late st Contact Info) Description 11/26/2023 4:00 PM EST Office Visit [place] [address] Josh Castro MD [facility] [place] [address] Dyspepsia; Screening for colon cancer; Abdominal bloating; Gastroesophageal reflux disease, unspecified whether esophagitis present; Small intestinal bacterial overgrowth (SIBO) Social History Tobacco Use Types Packs/Day Years [...] Sign Reading Time Taken Comments Blood Pressure 130/65 11/26/2023 3:53 PM EST Pulse 74 11/26/2023 3:53 PM EST Temperature - - Respiratory Rate - - Oxygen Saturation - - Inhaled Oxygen Concentration - - Weight 211.7 kg (466 lb 12.8 oz) 11/26/2023 3:53 PM EST Height 167.6 cm (5' 6) 11/26/2023 3:53 PM EST Body Mass Index 75.34 11/26/2023 3:53 PM EST documented in this encounter Patient Instructions * Patient Instructions* Josh Castro MD - 11/26/2023 4:00 PM EST Plan: Will consult with [facility] colleagues re: prolonged GLP-1 effects beyond 4-5 half lives Continue Dexilant 60mg/day Add gaviscon extra strength after meals and at bedtime Schedule Endoscopy and colonoscopy Hydrogen breath test with lactulose for SIBO (Small intestine bacterial overgrowth) CBC, LFTS and RUQ u/s to evaluate for CBD stone Consider abd wall injection Follow-up in 6 mo documented in this encounter Progress Notes * Josh Castro MD - 11/26/2023 4:00 PM EST [facility] Section of Gastroenterology and Hepatology New Patient Visit PCP: SONNY Gambino Referring provider: SONNY Gambino [address] [place] [phone] HPI: This is a 52 y.o. male with hx of Afib s/p ablation on Eliquis, STEMI, s/p CCY, bipolar d/o, PTSD (medical trauma) who is kindly referred by SONNY Gambino [address] [place] [phone] for evaluation of abd pain and constipation. Previously seen by Magalys Ambrocio, see her notes. Patient's primary concern today: bloated, reflux, epigastric pain Sx began after started Trulicity, which he is off now (was on for about 1 year up and down doses, has been about 1.5 months) Previously GERD was fairly well controlled Eating --> frequent BMS (diarrhea), gas, bloat, abd pain, reflux Abd pain in the epigastric area Reflux and heartburn after eating, as well as other times Post-prandial bloating about 30-60 min after eating every meal, can even feel palpitations, resolves, not in Afib. Doesn't seem to matter what he eats or how much he eats Same sx with drinking water vs hot sauce Eats smaller portions now, only once a day Associated nausea No vomiting (fights vomiting) Just waits it out, doesn't eat, yucky feeling lasts for about 1 hour, bloating persists Tried a few different PPIs no difference, currently on dexilant Diarrhea stop but all other sx have persisted Has daily formed stools Denies constipation Has tried Kombucha - doesn't seem to change it Metoclopramide - no change Feels close to GB sx but not quite the same Diet Eggs, craig, home fries, toast Sphaghetti, turkey burger Pizza, frozen Not a lot of red meat Review of Systems The remainder of 10 point ROS are negative except as above. GI BACKGROUND EGD 2015 reportedly normal EGD 12/29/17 normal. Pathology negative. Ojeda pH on once daily PPI 01/01/18 negative for pathologic acid reflux. SAP negative. S/p CCY for sludge, sx leading up to this were N/V, wt loss, abd pain Has tried a number of meds for GERD - lansoprazole (helps somewhat), famotidine (helps), carafate (helps), omeprazole (not helpful) Also trials of gabapentin - adverse reaction Per notes - trigger point injection with local and steroid - 100% effective for localized pain Prior X rays with mild to mod increased stool in the ascending/transverse colon (2020) - fiber recommended TTG IgA neg 2016 2017 - liver appeared fatty at time of CCY, bx performed - DIAGNOSIS A - Liver, wedge biopsy: - Superficial liver biopsy showing bridging fibrosis. Cannot rule out cirrhosis. There is no evidence of inflammation or steatosis. For more definitive diagnosis core biopsy should be considered. Iron stain is negative. Trichrome stain was evaluated for final diagnosis. B - Gallbladder: - Cholelithiasis. 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 - [place] Former smoker Mom with severe HH, surgery to reduce this Father age 71 Fhx No CRC Patient Active Problem List Diagnosis Date Noted Obstructive sleep apnea syndrome 09/18/2022 Epigastric pain 09/18/2022 Atrial flutter 02/14/2021 Bipolar disorder 01/03/2021 SVT (supraventricular tachycardia) 12/21/2020 PAF (paroxysmal atrial fibrillation) 12/21/2020 Flutter-fibrillation 2020 H/O cardiac radiofrequency ablation 07/10/2020 Coronary disease 07/29/2019 Heart palpitations 07/29/2019 Obesity 07/29/2019 Essential hypertension 07/29/2019 Past Medical History: Diagnosis Date A-fib Anxiety Arthritis CAD (coronary artery disease) Depression Flutter-fibrillation GERD (gastroesophageal reflux disease) Hepatitis HLD (hyperlipidemia) Hypertension Seizure Past Surgical History: Procedure Laterality Date CHOLECYSTECTOMY PRO LAP, CHOLECYSTECTOMY/GRAPH N/A 07/21/2018 LAPAROSCOPIC CHOLECYSTECTOMY WITH CHOLANGIOGRAM (WRVU 11.47) performed by Colt Hewitt MD [facility] MAIN OR PRO UNLISTED LAPAROSCOPIC PX LVR N/A 07/21/2018 LAPAROSCOPIC LIVER BIOPSY (WRVU 16.52) performed by Colt Hewitt MD at [facility] MAIN OR PRO UPPER GI ENDOSCOPY, BIOPSY N/A 12/29/2017 UPPER GASTROINTESTINAL ENDOSCOPY,WITH BIOPSY SINGLE OR MULTIPLE (WRVU 2.49) performed by Yusuf Tucker MD at [facility] ENDOSCOPY PRO UPPER GI ENDOSCOPY, DIAGNOSTIC N/A 12/29/2017 EGD, UPPER GI ENDOSCOPY performed by Yusuf Tucker MD at [facility] ENDOSCOPY TONSILLECTOMY Social History Socioeconomic History Marital status: Spouse name: Not on file Number of children: Not on file Years of education: Not on file Highest education level: Not on file Occupational History Not on file Tobacco Use Smoking status: Former Packs/day: 1.50 Years: 15.00 Additional pack years: 0.00 Total pack years: 22.50 Types: Cigarettes Quit date: 2009 Years since quittin.0 Smokeless tobacco: Former Types: Chew Quit date: 2013 Vaping Use Vaping Use: Former Substance and Sexual Activity Alcohol use: No Drug use: Yes Types: Marijuana Comment: medical MJ Sexual activity: Never Other Topics Concern Not on file Social History Narrative Not on file Social Determinants of Health Financial Resource Strain: Not on file Food Insecurity: Not on file Transportation Needs: Not on file Physical Activity: Not on file Intimate Partner Violence: Not on file Housing Stability: Not on file Family History Problem Relation Age of Onset Coronary Artery Disease Father Hypertension Father Coronary Artery Disease Brother Hypertension Brother Diabetes Brother Coronary Artery Disease Sister Current Outpatient Medications: torsemide (Demadex) 20 mg tablet, Take 40 mg by mouth daily., Disp: , Rfl: potassium chloride ER (Klor-Con, K-Tab) 10 mEq ER tablet, Take 4 tablets by mouth Daily at Noon., Disp: , Rfl: Dexilant [address] capsule, Take 60 mg by mouth daily., Disp: , Rfl: loratadine (Claritin) 10 mg Tablet, Take 10 mg by mouth daily as needed., Disp: , Rfl: metoclopramide (Reglan) 5 mg tablet, Take 5 mg by mouth 3 times daily as needed., Disp: , Rfl: apixaban (Eliquis) 5 mg Tablet, Take 1 tablet by mouth 2 times daily., Disp: 180 tablet, Rfl: 1 atorvastatin (Lipitor) 20 mg Tablet, Take 1 tablet by mouth every evening., Disp: 90 tablet, Rfl: 0 metoprolol succinate XL (Toprol XL) 50 mg Tablet Sustained Release 24 hr, Take 1 tablet by mouth 2 times daily., Disp: 180 tablet, Rfl: 3 lamoTRIgine (LaMICtal) 100 mg Tablet, Take 1 tablet by mouth daily. (Patient taking differently: Take 200 mg by mouth daily.), Disp: 30 tablet, Rfl: 12 clindamycin (CLINDAGEL) 1 % Gel, APPLY TOPICALLY TO AFFECTED AREA TWICE DAILY, Disp: 30 g, Rfl: 1 lisinopriL (Prinivil;Zestril) 2.5 mg Tablet, Take 1 tablet by mouth daily., Disp: 90 tablet, Rfl: 3 acetaminophen (TYLENOL) 325 mg Tablet, Take 2 tablets by mouth every 6 hours as needed for Pain., Disp: 30 tablet, Rfl: 1 nitroGLYcerin (NITROSTAT) 0.4 mg Tablet, Sublingual, DISSOLVE 1 UNDER TONGUE NEEDED, Disp: , Rfl: 4 aspirin 81 mg Tablet, Delayed Release (E.C.), Take 1 tablet by mouth daily., Disp: 30 tablet, Rfl: 3 clonazePAM (KLONOPIN) 1 mg Tablet, Take 1 mg by mouth 3 times daily as needed for Anxiety., Disp: ,Rfl: Trulicity 0.75 mg/0.5 mL Pen Injector, INJECT 3/4 MG SUBCUTANEOUSLY ONCE A WEEK FOR 4 WEEKS, THEN INCREASE TO 1.5MG WEEKLY IF TOLERATED., Disp: , Rfl: furosemide (Lasix) 20 mg Tablet, Take 1 tablet by mouth daily. (Patient not taking: Reported on 11/26/2023), Disp: 30 tablet, Rfl: 0 Allergies Allergen Reactions Adenosine Palpitations tachycardia Other reaction(s): Rapid heart beat PT had an adverse reaction HR went up to 250%27s Gabapentin Wellbutrin [Bupropion Hcl] Zoloft [Sertraline] BP 130/65 (BP Location (NBP): Right arm, Patient Position: Sitting, BP Cuff Sizes: Large Adult (32-43 cm)) Pulse 74 Ht 167.6 cm (5' 6) Wt (!) 211.7 kg (466 lb 12.8 oz) BMI 75.34 kg/m?? Physical exam: Constitutional: Well appearing, NAD, AAO x 3 Eyes: EOMI, anicteric sclera Cardiovascular: S1, S2, RRR no m/r/g, no peripheral edema Respiratory: CTABL no w/r/r Gastrointestinal: soft, epigastric ttp with lipoma, ND Neurologic: CN 2-12, strength and sensation grossly intact Psychiatric: pleasant, judgement and insight intact Skin: no rashes or lesions Musculoskeletal: no joint swelling or erythema, full range of motion Data: As reviewed above Impression: Dyspepsia (post-prandial pain, bloating, nausea) and worsening GERD correlated with starting Trulicity yet persist despite stopping, now > 45 days out when we know medication should beout of his system. Loose stools have resolved. DDX: Question ongoing delayed gastric emptying (?) Suspect SIBO. Warrants endoscopic evaluation to evaluate for alternate etiology given he's refractoryto PPI. Discussed colon cancer screening which he's never had. He's had medical trauma and is afraid of waking up during the procedures and apprehensive about having a tube go up his rectum. We discussed these things and he feels comfortable proceeding. Sharp pain localized to epigastric area may be of a different etiology (nerve/MSK) - previously benefit from local injections. Plan: Will consult with [facility] colleagues re: prolonged GLP-1 effects beyond 4-5 half lives Continue Dexilant 60mg/day Add gaviscon extra strength after meals and at bedtime Schedule Endoscopy (worsening GERD and dyspepsia despite high dose acid reduction, r/o GOO, H pylori; prior TTG IgA neg) + Colonoscopy (screening, first time, avg risk). Needs MAC. Can add to consulttime, Friday the at 11am. Hydrogen breath test with lactulose for SIBO (Small intestine bacterial overgrowth) CBC, LFTS and RUQ u/s to evaluate for CBD stone Consider abd wall injection Next steps - Cannot do OJEDA 2/2 to Eliquis - Consider NM GE scan, pH impedence Follow-up: 6 months Total face to face time day of encounter: 65 minutes The risks, benefits and alternatives were discussed with the patient who understands and agrees with above. Josh Castro MD 11/26/23 Josh Castro MD Section of Gastroenterology and Hepatology [facility] [address] [address] * Josh Castro MD - 11/26/2023 4:00 PM EST See below for breath test report. This is an unusual result, to see hydrogen and methane levels go down. Given elevated baseline levels I do and ongoing symptoms I do think we should treat. Sending doxy 100mg BID and neomycin 500mg BID x 14 days for suspected SIBO with methane excess. Also sending script for Carafate given prior benefit, and counseled on dosing. Gastroenterology Breath Test Report Patient: Rolo Aguilar Date Of : 1970 PCP: SONNY Gambino Referring: Josh Castro STUDY DATE: 02/18/2024 PROVIDER: Davon Lay [...] Breath Testing in Gastrointestinal Disorders: The [place] Consensus (Am J Gastroenterol 2017; 112(5):775-84. Apositive breath test is defined as a rise in hydrogen production >20 ppm compared to baseline within 90 minutes. Methane-positive is defined by at least 10 ppm production of methane. Signed, Davon Lay APRN Gastroenterology [place] [address] P: [phone] F: [phone] Copy: SONNY Espinoza documented in this encounter Miscellaneous Notes * Addendum Note - Josh Castro MD - 11/26/2023 4:00 PM ESTAddended by: JOSH CASTRO on: 03/26/2024 06:48 AM Modules accepted: Orders documented in this encounter Plan of Treatment Upcoming Encounters Date Type Department Care Team (Latest Contact Info) Description 06/07/2024 2:00 PM EDT Office Visit [place] [address] Josh Castro MD [facility] [place] [address] 06/11/2024 1:03 PM EDT Hospital Encounter Main Operating Room [place] [phone] Rachel Carrasco MD [facility] [address] 06/11/2024 1:03 PM EDT - 06/11/2024 1:58 PM EDT Surgery Main Operating Room [place] [phone] Rachel Carrasco MD [facility] [place] [address] CYSTO, REMOVAL OF STENT, FOREIGN BODY OR CALCULUS, SIMPLE (WRVU 2.81) 06/23/2024 10:00 AM EDT Office Visit Cardiology at [address] [place] [address] Mo Horne MD [facility] [place] [address] Scheduled Orders Name Type Priority Associated Diagnoses Orde r Schedule Hepatic Function Panel Lab Routine Dyspepsia Expected: 11/26/2023 (Approximate), Expires: 05/27/2024 US Abdomen Limited Hepatology Protocol Imaging Routine Dyspepsia Expected: 11/26/2023, Expires: 05/27/2024 Breath Hydrogen Test GI Routine Dyspepsia Abdominal bloating Expected: 11/26/2023 (Approximate), Expires: 05/27/2024 Scheduled Procedures Name Priority Associated Diagnoses Date/Ti me CYSTO, REMOVAL OF STENT, FOR EIGN BODY OR CALCULUS, SIMPLE (WRVU 2.81) NEPHROLITHIASIS 06/11/2024 1:03 PM EDT documented as of this encounter Visit Diagnoses Diagnosis Dyspepsia Dyspepsia and other specified disorders of function of stomach Screening for colon cancer Special screening for malignant neoplasms, colon Abdominal bloating Flatulence, eructation, and gas pain Gastroesophageal reflux disease, unspecified whether esophagitis present Small intestinal bacterial overgrowth (SIBO) documented in this encounter Care Teams Business Change Manager Relationship Specialty Start Date End Date Amira Hooks PA [address] [place] [phone] PCP - General Family Medicine 07/25/22 documented as of this encounter
--- OUTSIDE RECORDS SUMMARY | 2024-06-04 20:42 | XMS_ITS | Encounter Summary ---
Author Organization [facility] [place] [address] Care Team Providers Care Rn Chronic Name Role Phone Amira Hooks Primary Care Provider Encounter Details Date Type Department Care Team (Latest Contact Info) Description 09/17/2022 Travel Social History Tobacco Use Types Packs/Day Years Used Date Smoking Tobacco: Former Cigarettes 1.5 15 1 999 - 2014 Smokeless Tobacco: Former Chew Alcohol Use Standard [...] PM EDT Office Visit [place] [address] Joan Castro MD [facility] [place] [address] 06/11/2024 1:03 PM EDT Hospital Encounter [place] [address] Rachel Carrasco MD [facility] [place] [address] 06/11/2024 1:03 PM EDT - 06/11/2024 1:58 PM EDT Surgery [place] [address] Rachel Carrasco MD [facility] [place] [address] CYSTO, REMOVAL OF STENT, FOREIGN BODY OR CALCULUS, SIMPLE (WRVU 2.81) 06/23/2024 10:00 AM EDT Office Visit Cardiology at [address] [address] Mo Horne MD [facility] [place] [address] Scheduled Procedures Name Priority Associated Diagnoses Date/Ti me CYSTO, REMOVAL OF STENT, FOR EIGN BODY OR CALCULUS, SIMPLE (WRVU 2.81) NEPHROLITHIASIS 06/11/2024 1:03 PM EDT documented as of this encounter Visit Diagnoses Not on filedocumented in this encounter Care Teams Rn Chronic Relationship Specialty Start Date End Date Amira Hooks PA [address] [address] PCP - General Family Medicine 07/25/22 documented as of this encounter
--- OUTSIDE RECORDS SUMMARY | 2024-06-04 20:42 | XMS_ITS | Encounter Summary ---
Author Organization [facility] Address [facility] [place] [address] Care Team Providers Care Pick And Shovel Man Name Role Phone Bin Bowman MD Primary Care Provider Encounter Details Date Type Department Care Team (Late st Contact Info) Description 06/24/2022 10:00 AM EDT Office Visit Cardiology at [address] [address] Fadi Escobar MD [facility] [place] [address] PAF (paroxysmal atrial fibrillation) Social History Tobacco Use Types Packs/Day Years [...] Sign Reading Time Taken Comments Blood Pressure 140/81 06/24/2022 9:25 AM EDT Pulse 62 06/24/2022 9:25 AM EDT Temperature - - Respiratory Rate - - Oxygen Saturation 100% 06/24/2022 9:25 AM EDT Inhaled Oxygen Concentration - - Weight 194.7 kg (429 lb 3.2 oz) 06/24/2022 9:25 AM EDT Height 167.6 cm (5' 6) 06/24/2022 9:25 AM EDT Body Mass Index 69.27 06/24/2022 9:25 AM EDT documented in this encounter Progress Notes * Fadi Escobar MD - 06/24/2022 10:00 AM EDT Cardiac Electrophysiology Clinic?? [place] [facility]?? June 24, 2022 (last visit December 05, 2021) ? Aviation Warfare Systems Operator:??Jose Culver MD (has since moved to a new practice elsewhere). Primary Care:??Bin Bowman MD ?? Reason for Visit:??Follow up ?? Backgound: ??Jeff??is a 51??year old gentleman who has had multiple??symptomatic episodes of paroxysmal atrial??tachycardia +/- ??fibrillation (AF), with numerous trips to the local emergency room in [facility] for some of those symptomatic episodes.? He initially had undergone an electrophysiology study in June 2020 because of multiple manifest dysrhythmias, including a wide complex tachycardia. That assessment revealed inducible cavotricuspid isthmus dependent atrial flutter, which was ablated. In addition, at that time also exhibited dual at rioventricular node physiology with echo beats elicited, but actual atrioventricular node reentranttachycardia was not elicited; given available electrocardiogram tracings of clinical supraventricular tachycardia, a 'conservative' ablative modification of the atrioventricular node slow pathway also was accomplished during that procedure. ?? Subsequent to that, Mr. Aguilar had more symptomatic tachydysrhythmias, and again sought treatment at his local emergency room, and atrial tachycardia/fibrillation was documented, for which he was started on amiodarone.??On??January 10, 2021, he underwent mapping and ablation of atrial fibrillation,with the acute findings and results summarized in his problem list. Afterward, however, he??was noted to have developed a pericardial effusion (especially notable posteriorly), for which a pericardial drain electively was placed the following day (~300 cc of bloody effusion was removed; the drain was removed the following day subsequent to no further re accumulation of effusion. He was dischargedthe day after that on continued amiodarone and apixaban. He subsequently also was maintained on colchicine and aspirin for a limited time for treatment of pericarditis symptoms. ?? He remained on apixaban 5 mg twice daily, and his dose of??amiodarone was reduced to 200 mg daily as of [id number] June. He reported early on??having felt a total of??3-4 episodes of brief tachycardia,??the??longest was??of which was??<5 minutes??duration; the associated symptoms were??not severe??as they otherwise previously had been when he had episodes pre-ablation, and he has required no further trips to his local emergency department since then (about which both he and his ??remain??pleased). ?? 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 Kasia struggled, however, with more weight gain. Recent Medical History: He has been contacted by [facility], and has an appointment on August 07 to be seen! In the meantime, he has worked to lose more weight, and reportsbeing on a 'vegan' diet of sorts. Regarding his rhythm status, overall he reports continuing to be doing substantially better than earlier last year, and he has not been back to the Emergency Department for tachycardia symptoms sinceI last saw him. Things are not perfect, however, as he yet has experienced occasional symptoms (perhaps every couple weeks) in which he feels his heart beating fast and there may be associated dizziness; on a few occasions it has been severe enough that he felt he need to grab onto something momentarily. These episodes occur at anytime, even if he is just sitting and relaxing, and can provoke anxiety. He has not been syncopal. He feels a few seconds of palpitations up to several times per week,but that is notably less bothersome. He has been completely off of amiodarone since last December. The Zio monitor expected in advance of this visit was not acquired. ?? Past Medical History: ??1) ??Cardiac tachydysrhythmias??(see above) >?Recurrent symptomatic tachycardias (narrow complex, wide complex) in 2020 : ??Repeat visit to local emergency department : ??Adenosine-responsive in at least 1 instance : ??Direct current cardioversions >?Diagnostic electrophysiology study, mapping, and ablation (July 10, 2020) :?Cavotricuspid isthmus dependent atrial flutter elicited, mapped, and ablated (with persiting bidirectional conduction block across the isthmus achieved). :?Atrioventricular node slow pathway pathway modification for presumed atrioventricular (see details above).?? :?No manifest accessory pathway function was observed. :?No sustained ventricular tachycardia was elicited via ventricular extra- stimulus pacing with up to triple extrastimuli into [address] cycle lengths at two separate sites. >?Atrial tachycardia/fibrillation >?Diagnostic electrophysiology study, mapping, and ablation (January 10, 2021) : Successful acute electrical isolation of the pulmonary vein antra,??and conduction block was achieved across the inferoposterior aspect of the left atrial wall between the electrically isolated pulmonary vein antra.?? : Mitral annular flutter was elicited and mapped, and ablation of a posterolateral isthmus was accomplished (albeit without having achieved bidirectional conduction block across that entire segment despite delivery of 40-50 montes - ablation via the adjacent portion of the coronary sinus could not be accomplished due to the narrow caliber of that vessel). If this is clinically relevant, then it yet may be approachable once local edema resulting from this ablation effort eventually resolves.?? : No inferior cavotricuspid isthmus dependent atrial flutter was??elicited,??and??conduction block across the inferior cavotricuspid isthmus was evident (see above description in body of report regarding portion of isthmus (possibly proximal of??the Eustachian ridge).?? : Preserved atrioventricular conduction??with dual atrioventricular node physiology.?? : No finding of an accessory pathway. : The P wave duration post-cardioversion and pre-ablation was prolonged at 140 ms during sinus rhythm; the post-ablation sinus rhythm P wave duration was 120 ms. > Post-procedure effusion with tamponade / drained > Atrial tachycardia/fibrillation with pericardidits: Amiodarone > Slow amiodarone taper (no more trips to the local emergency room to date). ??2) ??Coronary artery disease >?July 2017 at [facility]: Non-STEMI (EMMY of OM1) >?LVEF 55-60% >?Aspirin, statin, beta helen ??3) ??Hypertension ??4) ??Dyslipidemia ??5)?Obesity ??6) ??Obstructive sleep apnea ??7) ??RICARDO ??8) ??Gastroesophageal reflux ??9) ??History of depression and bipolar disorder 10) ??History of seizure 11)?Atypical chest pain (costchondritis, gastroesophageal reflux) 12) ??Surgeries: >?S/p cholecystectomy >?S/p tinsillectomy ?? Allergies & Sensitivities:??Adenosine, Gabapentin, Wellbutrin [bupropion hcl], and Zoloft [sertraline] ? Medications:??As per eDH (includes aspirin 81 mg daily, apixaban 5 mg twice daily, metoprolol succinate 50 mg twice daily, furosemide 20 mg daily, atorvastatin 20 mg daily, and other noncardiac medications)? 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 medicinal) noted in records ?? Review of Systems: No history of TIA, stroke, heart failure; no??recent??complaint of exertional angina, syncope,??claudication. Remainder of review of systems was as noted in the present history. ?? Physical Examination (cursory): Vital Signs: ?Blood pressure: 140/81??sitting arm (cuff). ?Pulse: 62/minute, regular ?Ventilations: 16/minute, unlabored ?Weight: 194.7??kg dressed (decreased) ?Body mass index: 69.27??kg/m2? General: In no acute distress. Articulate and attentive. Skin: Warm and dry, normal turgor. HEENT: Normocephalic, atraumatic; anicteric sclerae. Neck: No elevated jugulovenous distention upright. Chest: Symmetric chest wall expansion with inspiration. ?? Lungs: Good air movement. Heart: Regular rate. Abdomen: Obese. Extremities: Pulses present. Neurological: Grossly intact. ?? Tests:?? Transthoracic Echocardiogram??(January??2020):??Normal ventricular function and structure, EF 65%, mild pulmonary hypertension; 'trivial' pericardial effusion; mildly dilated atria. Zio Monitor??(October 04, 2021; analyzed 8??days 18??hours): Sinus rhythm 49- 116/minute, 63/minute; rare ectopy??(while yet on amiodarone 200 mg daily) Zio Monitor??(February 19, 2021; analyzed 11??days 4??hours): Sinus rhythm 41- 95/minute, 57/minute; rare ectopy??(while yet on amiodarone 400 mg daily) Zio Monitor (August 02, 2020; analyzed??13 days 21 hours): >?The overall sinus rhythm rate range was 41-127/minute, and averaged 64/minute. The predominant underlying rhythm throughout the monitoring period was conducted sinus rhythm. The slowest heartrates marginally tended to occur overnight. >?No pauses >3 seconds were seen, and there was no high grade atrioventricular conduction block reported or observed at normal sinus rates.?? >?There was a <1.0% burden of isolated ectopic supraventricular beats detected, and rare supraventricular couplets and triplets were detected as well. There were 19 supraventricular runs detected (the run with the fastest interval lasted 7 beats with a maximum rate of 160/minute, and the longest lasted 13 beats at a mean rate of 100/minute); the mean rate of all of these runs was 121/minute. >?There was a <1.0% burden of isolated ectopic ventricular beats detected, and a ventricular couplet and a triplet were detected as well. There were no ventricular runs detected. >?The patient wrote in 3 timed diary entries for symptoms (variably noting dyspnea, chest pain or pressure, dizziness, and lightheadedness), and there were 5 patient-triggered events; these corresponded to sinus rhythm 64-92/minute. ?Conclusion: This monitor study was remarkable for sinus rhythm. Occasional nonsustained supraventricular tachycardia runs (without any atrial flutter/fibrillation) and a low overall burden ofectopy were detected. Stress??[facility]??([facility], [facility]??Moderate size severely intense fixed inferolateraldefect. LVEF 50%. Minimal ischemia. Transthoracic??Echocardiogram??(May 08, 2020):??LVEF 55-60%, moderately dilated left atrium and mildly dilated right atrium. Electrocardiogram??(June 24, 2022):??Normal sinus rhythm??62/minute, QRS 98 ms, QTc 412 ms. Electrocardiogram??(July 25, 2021):??Normal sinus rhythm??62/minute, QRS 100 ms, QTc 454 ms. Electrocardiogram??(May 06, 2020; 2:25 PM):??Sinus rhythm 62/minute, conducted atrial ectopy, QRS duration 100 ms, QTc 380 ms, old inferior infarction. Electrocardiogram??(May 06, 2020; 1:40 PM):??Atrial fibrillation 159/minute, old inferior infarction. Electrocardiogram??(May 06, 2020; 1:34 PM):??Atrial fibrillation 159/minute, old inferior infarction. Electrocardiogram??(April 27, 2020):??Sinus rhythm 82/minute, AR 156 m, QRS duration 102 ms, QTc 416ms, old inferior infarction. Chest Radiograph??(July 18, 2021): No indication of amiodarone toxicity. Blood Tests??(July 19, 2021; [place], [place]): Heaptic enzymes normal (albumin and calcium slight low), TSH mildly elevated at 4.22 uIU/L (upper limit normal range 3.74) ?? Assessment:??Subsequent to his January 2021 mapping and ablation procedure and initial post-proceduretreatment with amiodarone, Mr. Jeff hamm had been doing well with respect to his rhythm status, even on a very low dose of amiodarone; this was discontinued in December 2021 after had his eyes examined (specialty examination in [facility], no records available at this time to review -from questioning him, he gave no indication of any suspected macular involvement). Regarding his rhythm status, I am not sure what he may be experiencing, and accordingly it would begood to obtain another Zio monitor to reassess for the intermittent episodes he described. Fortunately these episodes have been self- limited, unlike back in 2019. I also discussed the utility of a tool such as Kardia XL for when he feels symptoms - tracing from that may be useful (6 simultaneous leads of data recorded at a time). He has had lightheadedness (presyncpal when more severe) in conjunction with transient tachycardia, as described in the Recent History section of this note. Before recommending a course of treatment, it would be helpful to correlate what he has been feeling with electrocardiographic information. One possibility is that he yet has some atrial tachycardia +/- fibrillation (AT-AF), and cautious use of sotalol then would be a consideration for him if otherwise significant bradycardia nor pauses pose a limitation. He and his were made aware that I am in the process of transitioning away from clinical practice by this (he also recently lost Dr. Culver, who already has moved on). We discussed the appropriateness of continued follow up here, and at satellite offices further north. Finally, I am very pleased that he will be engaging with the folks in the [facility] - he is still young, and has much to gain from successfully losing substantial weight, which also may have a significant salutory effect on his cardiac rhythm status; he is motivated, as is his supportive . ?? Recommendations: 1)?Zio monitor??prior to next visit; review results at the next visit. 2)?Follow up - he expects to be here August 07 () for a visit to [facility] (he is from [place], [place]) - possibly could he have Zio moniotr results by then to review in Cardiac Electrophysiology that day? 3) Follow up discussed (per our discussion, he knows of Dr. Horne - follow up in [place], [place], would be closer to his home. ____ documented in this encounter Plan of Treatment Upcoming Encounters Date Type Department Care Team (Latest Contact Info) Description 06/07/2024 2:00 PM EDT Office Visit [place] [address] Joan Castro MD [facility] [place] [address] 06/11/2024 1:03 PM EDT Hospital Encounter [place] [address] Rachel Carrasco MD [facility] [place] [address] 06/11/2024 1:03 PM EDT - 06/11/2024 1:58 PM EDT [place] [phone] Rachel Carrasco MD [facility] [place] [address] CYSTO, REMOVAL OF STENT, FOREIGN BODY OR CALCULUS, SIMPLE (WRVU 2.81) 06/23/2024 10:00 AM EDT Office Visit Cardiology at [address] [place] [address] Mo Horne MD [facility] [place] [address] Scheduled Procedures Name Priority Associated Diagnoses Date/Ti me CYSTO, REMOVAL OF STENT, FOR EIGN BODY OR CALCULUS, SIMPLE (WRVU 2.81) NEPHROLITHIASIS 06/11/2024 1:03 PM EDT documented as of this encounter Procedures Procedure Name Priority Date/Time Associated Diagnosis Comments EKG 12-LEAD Routine 06/24/2022 9:44 AM EDT PAF (paroxysmal atrial fibrillation) documented in this encounter Results * EKG 12 Lead (06/24/2022 9:44 AM EDT) Ventricular rate 62 BPM MUSE SYSTEM Atrial Rate 62 BPM MUSE SYSTEM P-R Interval 174 ms MUSE SYSTEM QRS Duration 98 ms MUSE SYSTEM Q-T Interval 406 ms MUSE SYSTEM QTC Calculated (Bezet) 412 ms MUSE SYSTEM Calculated P Montgomery 29 degrees MUSE SYSTEM Calculated R [place] 41 degrees MUSE SYSTEM Calculated T [place] 27 degrees MUSE SYSTEM INTERPRETATION Normal sinus rhythm Normal ECG When compared with ECG of 25-JUL-2021 08:34, Premature atrial complexes are no longer Present Confirmed by MD Cheng, Jose ([id number]) on 06/24/2022 11:29:45 AM MUSE SYSTEM 06/24/2022 9:44 AM EDT 06/24/2022 11:29 AM EDT Fadi Escobar MD ECG ORDERABLES MUSE SYSTEM documented in this encounter Visit Diagnoses Diagnosis PAF (paroxysmal atrial fibrillation) Atrial fibrillation documented in this encounter Care Teams Pick And Shovel Man Relationship Specialty Start Date End Date Bin Bowman MD [address] [place] [id number] PCP - General General Internal Medicine 04/21/1707/11 documented as of this encounter
--- OUTSIDE RECORDS SUMMARY | 2024-06-04 20:42 | XMS_ITS | Encounter Summary ---
Author Organization [facility] [place] [address] Care Team Providers Care Building Maintenance Technician Name Role Phone Amira Hooks Primary Care Provider Encounter Details Date Type Department Care Team (Latest Contact Info) Description 06/18/2023 Travel Social History Tobacco Use Types Packs/Day Years Used Date Smoking Tobacco: Former Cigarettes 1.5 15 1 995 - 2009 Smokeless Tobacco: Former Chew Quit: 2013 Alcohol Use Standard Drinks/Week Comments No 0 (1 standard drink = 0.6 oz pur e alcohol) [facility] Inpatient Questions Answer Date Recorded Does Anyone [...] 2:00 PM EDT Office Visit [place] [address] Joan Castro MD [facility] [place] [address] 06/11/2024 1:03 PM EDT Hospital Encounter Main [place] [phone] Rachel Carrsaco MD [facility] [place] [address] 06/11/2024 1:03 PM EDT - 06/11/2024 1:58 PM EDT Surgery Main [place] [phone] Rachel Carrasco MD [facility] [place] [place] [address] CYSTO, REMOVAL OF STENT, FOREIGN BODY OR CALCULUS, SIMPLE (WRVU 2.81) 06/23/2024 10:00 AM EDT Office Visit Cardiology at [address] [address] Mo Honre MD [facility] [place] [address] Scheduled Procedures Name Priority Associated Diagnoses Date/Ti me CYSTO, REMOVAL OF STENT, FOR EIGN BODY OR CALCULUS, SIMPLE (WRVU 2.81) NEPHROLITHIASIS 06/11/2024 1:03 PM EDT documented as of this encounter Visit Diagnoses Not on filedocumented in this encounter Care Teams Building Maintenance Technician Relationship Specialty Start Date End Date Amira Hooks PA [address] [place] [phone] PCP - General Family Medicine 07/25/22 documented as of this encounter
--- OUTSIDE RECORDS SUMMARY | 2024-06-04 20:42 | XMS_ITS | Encounter Summary ---
[place] [address] Care Team Providers Care Certified Veterinary Technician Name Role Phone Amira Hooks Primary Care Provider Reason for Referral * Consultation (Routine) - Closed Specialty Diagnoses / Procedures Referred By Zeyad mishra Referred To Contact General Surgery Diagnoses Morbid obesity Blood glucose elevated Hypertension, unspecified type Other sleep apnea Amira Hooks PA [address] [place] [address], [place] [address] [facility] [address] [place] [phone] Referral ID Status Reason Start Date Expiration Date V isits Requested Visits Authorized [id number] Closed Consult, Test & Treat PCP Updated and/or Approved 12/09/2022 12/09/2023 6 6 Encounter Details Date Type Department Care Team (Latest Contact Info) Description 12/09/2022 Transcribe Orders eD Incoming Referrals [phone] Amira Hooks PA [address] [place] [address] Morbid obesity; Blood glucose elevated; Hypertension, unspecified type; Other sleep apnea Social History Tobacco Use Types Packs/Day Years [...] 2:00 PM EDT Office [place] [phone] Joan Castro MD [facility] [place] [address] 06/11/2024 1:03 PM EDT Hospital Encounter Main Operating Room [place] [phone] Rachel Carrasco MD [facility] [place] [address] 06/11/2024 1:03 PM EDT - 06/11/2024 1:58 PM EDT Surgery Main Operating Room [place] [phone] Rachel Carrasco MD [facility] [place] [address] CYSTO, REMOVAL OF STENT, FOREIGN BODY OR CALCULUS, SIMPLE (WRVU 2.81) 06/23/2024 10:00 AM EDT Office Visit Cardiology at [address] [address] Mo Horne MD [facility] [place] [address] Scheduled Procedures Name Priority Associated Diagnoses Date/Ti [...] as of this encounter Visit Diagnoses Diagnosis Morbid obesity Blood glucose elevated Other abnormal glucose Hypertension, unspecified type Other sleep apnea documented in this encounter Care Teams Certified Veterinary Technician Relationship Specialty Start Date End Date Amira Hooks PA [address] [place] [id number] PCP - General Family Medicine 07/25/22 documented as of this encounter
--- OUTSIDE RECORDS SUMMARY | 2024-06-04 20:42 | XMS_ITS | Encounter Summary ---
Author Organization [facility] Address [facility] [place] [address] Care Team Providers Care Dioramist Name Role Phone Amira Hooks Primary Care Provider [phone] Reason for Visit * Reason Comments Tachycardia SVT Encounter Details Date Type Department Care Team (Late st Contact Info) Description 09/18/2022 9:00 AM EST Office Visit Cardiology at [address] [phone] Mo Horne MD [facility] [address] S/P ablation of atrial fibrillation Social History Tobacco Use Types Packs/Day Years [...] Sign Reading Time Taken Comments Blood Pressure 137/86 09/18/2022 9:06 AM EST Pulse 61 09/18/2022 9:06 AM EST Temperature - - Respiratory Rate - - Oxygen Saturation - - Inhaled Oxygen Concentration - - Weight 206.8 kg (456 lb) 09/18/2022 9:06 AM EST Height 167.6 cm (5' 6) 09/18/2022 9:06 AM EST Body Mass Index 73.6 09/18/2022 9:06 AM EST documented in this encounter Patient Instructions * Patient Instructions* Mo Horne MD - 09/18/2022 9:00 AM EST Images from the original note were not included. It was nice to see you in the Cardiac Electrophysiology Clinic today. We discussed atrial fibrillation, atrial flutter and medications You should continue with your medicines as before I made no changes to your medicines today The medicines that we discussed are sotalol, dofetilide, dronedarone (the latter does not require an inpatient admission) I will arrange for a routine follow up in about 6 months time For any questions, call my office: [phone] To access your health care information, go to the web at: [email or web address] (you will need to register) For educational materials: [email or web address] Mo BARTON.[facility], Clinical Cardiac Electrophysiology, [facility], For more information about heart rhythm issues, go to [email or web address] - the Heart Rhythm Society's patient resource center [facility] To access your health care information, go to the web at: [email or web address] (you will need to register) Heart-Healthy Lifestyle You can help keep your heart and blood vessels healthy by taking steps toward a healthier lifestyle. These healthy habits include not smoking, eating right, exercising regularly, staying at a healthyweight, and getting the screening tests you need. A heart-healthy lifestyle is important for everyone, not just for people with existing health problems. It can help you keep your heart and blood vessels healthy. If you already have heart or blood vessel problems, such as high cholesterol or high blood pressure, a healthy lifestyle can help you lower your risk of a heart attack and stroke. If you have children, you can be their healthy role model. If your habits are healthy, your children are more likely to build those habits in their own lives. Don't smoke Everyone who uses tobacco would benefit from quitting. When you quit smoking--no matter how old youare--you will decrease your risk of heart attack, stroke, and many other health problems. Where can you learn more? Visit our health information library at [email or web address] You can also view health information on Convo, your personal patient account. Log in or sign uptoday. * Attachments The following attachments cannot be sent through Care Everywhere. * Rhythm-Control Medicines: General Info (Polish) documented in this encounter Progress Notes * Mo Horne MD - 09/18/2022 9:00 AM EST Images from the original note were not included. Clinical Cardiac Electrophysiology Follow Up Patient ID Rolo Aguilar 1970 [id number] Rolo Aguilar is following up in EP clinic Chief Complaint Paroxysmal atrial arrhythmias History This is a 51 y.o. male following up/being seen in clinic for paroxysmal atrial arrhythmias. He was previously seen and followed by Dr. Escobar, but we have not met before. A brief history is appendedbelow. His history includes CAD, sleep apnea. 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 He underwent atrial fibrillation ablation in January 2021, following which he developed a pericardialeffusion (300 cc of bloody effusion). For period of time he was maintained on amiodarone, for atrial arrhythmias; amiodarone was stopped in December of this year. At that visit, he had been planning on meeting with the weight and wellness program. Zio patch placed in June showed 11 episodes of supraventricular tachycardia, some of which were symptomatic. There was no atrial fibrillation or atrial flutter. In August of this year, he was seen in the local emergency room with a sensation of palpitations. He was felt to have probable sinus tachycardia. I would note, there is prior follow-up with Dr. Escobar, there appeared to have been some discussion about consideration of sotalol. Since his last evaluation in the emergency room - he has not had any further arrhythmias/flutter sensation. He wears an Apple Watch - no arrhythmias. He has sleep apnea - wears CPAP every night, gets a restful night sleep. No lightheadedness, dizziness or syncope. No chest pain. No heart failure symptoms (no edema, PND, orthopnea)1 Weight stable Has some 'PTSD' type symptoms related to his hospitalisation with pericarditis. Problem List Patient Active Problem List Diagnosis ??? Obstructive sleep apnea syndrome ??? Epigastric pain ??? Atrial flutter ??? Bipolar disorder ??? SVT (supraventricular tachycardia) Added automatically from request for surgery [id number] ??? PAF (paroxysmal atrial fibrillation) Added automatically from request for surgery [id number] ??? Flutter-fibrillation ??? H/O cardiac radiofrequency ablation ??? Coronary disease ?? 2017: STEMI. PCI of OM1. EF 60%. Many [facility] visits [facility] after this. ??? Heart palpitations ??? Obesity ??? Essential hypertension Review of Systems Review of Systems Constitutional: Positive for weight loss. Cardiovascular: Positive for palpitations. Meds Current Outpatient Medications Medication Sig Dispense Refill ??? Nystop 100,000 unit/gram Powder APPLY DIRECTED TO SKIN TWO TO THREE TIMES A DAY FOR ONE TO TWO WEEKS ??? apixaban (Eliquis) 5 mg Tablet Take 1 tablet by mouth 2 times daily. 180 tablet 1 ??? atorvastatin (Lipitor) 20 mg Tablet Take 1 tablet by mouth every evening. 90 tablet 0 ??? pantoprazole EC (Protonix) 40 mg Tablet, Delayed Release (E.C.) Take 1 tablet by mouth daily. 90 tablet 3 ??? metoprolol succinate XL (Toprol XL) 50 mg Tablet Sustained Release 24 hr Take 1 tablet by mouth2 times daily. 180 tablet 3 ??? furosemide (Lasix) 20 mg Tablet Take 1 tablet by mouth daily. 30 tablet 0 ??? lamoTRIgine (LaMICtal) 100 mg Tablet Take 1 tablet by mouth daily. (Patient taking differently:Take 150 mg by mouth daily.) 30 tablet 12 ??? clindamycin (CLINDAGEL) 1 % Gel APPLY TOPICALLY TO AFFECTED AREA TWICE DAILY 30 g 1 ??? lisinopriL (Prinivil;Zestril) 2.5 mg Tablet Take 1 tablet by mouth daily. 90 tablet 3 ??? acetaminophen (TYLENOL) 325 mg Tablet Take 2 tablets by mouth every 6 hours as needed for Pain.30 tablet 1 ??? nitroGLYcerin (NITROSTAT) 0.4 mg Tablet, Sublingual DISSOLVE 1 UNDER TONGUE NEEDED 4 ??? aspirin 81 mg Tablet, Delayed Release (E.C.) Take 1 tablet by mouth daily. 30 tablet 3 ??? clonazePAM (KLONOPIN) 1 mg Tablet Take 1 mg by mouth 2 times daily as needed for Anxiety. ??? Trulicity 0.75 mg/0.5 mL Pen Injector INJECT 3/4 MG SUBCUTANEOUSLY ONCE A WEEK FOR 4 WEEKS, THEN INCREASE TO 1.5MG WEEKLY IF TOLERATED. No current facility-administered medications for this visit. Social History Social History Socioeconomic History ??? Marital status: Spouse name: None ??? Number of children: None ??? Years of education: None ??? Highest education level: None Occupational History ??? None Tobacco Use ??? Smoking status: Former Smoker Packs/day: 1.50 Years: 15.00 Pack years: 22.50 Types: Cigarettes Quit date: 2014 Years since quittin.8 ??? Smokeless tobacco: Former User Types: Chew Vaping Use ??? Vaping Use: Former Substance and Sexual Activity ??? Alcohol use: No ??? Drug use: Yes Types: Marijuana Comment: medical MJ ??? Sexual activity: Never Other Topics Concern ??? None Social History Narrative ??? None Social Determinants of Health Financial Resource Strain: Not on file Food Insecurity: Not on file Transportation Needs: Not on file Physical Activity: Not on file Housing Stability: Not on file Family History Family History Problem Relation Age of Onset ??? Coronary Artery Disease Father ??? Hypertension Father ??? Coronary Artery Disease Brother ??? Hypertension Brother ??? Diabetes Brother ??? Coronary Artery Disease Sister Exam No data found. Physical Exam Constitutional: Comments: Body mass index is 73.6 kg/m??. HENT: Nose: No congestion. Eyes: Conjunctiva/sclera: Conjunctivae normal. Cardiovascular: Rate and Rhythm: Normal rate. Pulses: Normal pulses. Pulmonary: Effort: Pulmonary effort is normal. Skin: General: Skin is warm. Neurological: General: No focal deficit present. Mental Status: He is alert. I have personally reviewed the ECG: sinus rhythm, 61 bpm, NJ 180 ms, QRS 100 ms, QT 420 ms, no brugada, or pre-excitation, no Long QT Impression Rolo Aguilar is seen in the EP clinic for follow up - a prior patient of Dr Escobar with a history of cavotricuspid isthmus ablation, dual AV node slow pathway modification, posterior wall isolation (PVI/AF ablation), mitral annular flutter ablation (partial); who continues to have episodes of irregular atrial arrhythmias. We had a discussion about anti-arrhythmic medicines, including dronedarone, sotalol and dofetilide as well as repeat ablation. For now, we have agreed on a 'watchful waiting' approach; for recurrent arrhythmias, he will trial an increase of his metoprolol to 150 mg in divided doses. For further breakthrough events, we could consider dronedarone, sotalol or dofetilide (he will look into the out of pocket expense for these) Recommendations / Plan A) No changes to medications B) Encouraged to continue to lose weight, exercise C) For recurrent palpitations, could increase metoprolol to 150 mg / day D) Contingency for dronedarone, sotalol or dofetilide E) Follow up in 6 months MO HORNE MD Cardiac Electrophysiology [facility] [place] 35 minutes of this 45 minute encounter were spent preparing to see the patient (e.g. review of tests), obtaining and/or reviewing separately obtained history, performing a medically appropriate examination and/or evaluation, counseling and educating the patient, ordering medications, tests, or procedures, documenting clinical information in the electronic medical record, Independently interpreting results Cc: SONNY Gambino documented in this encounter Plan of Treatment Upcoming Encounters Date Type Department Care Team (Latest Contact Info) Description 06/07/2024 2:00 PM EDT Office [place] [phone] Joan Castro MD [facility] [place] [address] 06/11/2024 1:03 PM EDT Hospital Encounter [place] [phone] Rachel Carrasco MD [facility] [place] [address] 06/11/2024 1:03 PM EDT - 06/11/2024 1:58 PM EDT Surgery [place] [phone] Rachel Carrasco MD [facility] [place] [address] CYSTO, REMOVAL OF STENT, FOREIGN BODY OR CALCULUS, SIMPLE (WRVU 2.81) 06/23/2024 10:00 AM EDT Office Visit Cardiology at [address] [place] [phone] Mo Horne MD [facility] [address] Scheduled Procedures Name Priority Associated Diagnoses Date/Ti me CYSTO, REMOVAL OF STENT, FOR EIGN BODY OR CALCULUS, SIMPLE (WRVU 2.81) NEPHROLITHIASIS 06/11/2024 1:03 PM EDT documented as of this encounter Visit Diagnoses Diagnosis S/P ablation of atrial fibrillation Other postprocedural status documented in this encounter Care Teams Dioramist Relationship Specialty Start Date End Date Amira Hooks PA [address] [place] [address] PCP - General Family Medicine 07/25/22 documented as of this encounter
--- OUTSIDE RECORDS SUMMARY | 2024-06-04 20:42 | XMS_ITS | Encounter Summary ---
Author Organization [facility] [place] [address] Care Team Providers Care Steamer Blocker Name Role Phone Amira Hooks Primary Care Provider Encounter Details Date Type Department Care Team (Latest Contact Info) Description 12/08/2022 Travel Social History Tobacco Use Types Packs/Day [...] 2:00 PM EDT Office [place] [phone] Joan Castro MD [facility] [place] [address] 06/11/2024 1:03 PM EDT Hospital Encounter [place] [phone] Rachel Carrasco MD [facility] [place] [address] 06/11/2024 1:03 PM EDT - 06/11/2024 1:58 PM EDT Surgery [place] [address] Rachel Carrasco MD [facility] [place] [address] CYSTO, REMOVAL OF STENT, FOREIGN BODY OR CALCULUS, SIMPLE (WRVU 2.81) 06/23/2024 10:00 AM EDT Office Visit Cardiology at [address] [phone] Mo Horne MD [facility] [place] [address] Scheduled Procedures Name Priority Associated Diagnoses Date/Ti me CYSTO, REMOVAL OF STENT, FOR EIGN BODY OR CALCULUS, SIMPLE (WRVU 2.81) NEPHROLITHIASIS 06/11/2024 1:03 PM EDT documented as of this encounter Visit Diagnoses Not on filedocumented in this encounter Care Teams Steamer Blocker Relationship Specialty Start Date End Date Amira Hooks PA [address] [address] PCP - General Family Medicine 07/25/22 documented as of this encounter
--- OUTSIDE RECORDS SUMMARY | 2024-06-04 20:42 | XMS_ITS | Encounter Summary ---
Author Organization [facility] [place] [address] Care Team Providers Care Medicare Contact Specialist Name Role Phone Amira Hooks Primary Care Provider Encounter Details Date Type Department Care Team (Late st Contact Info) Description 08/06/2022 Telephone Weight and Wellness at [facility] [address] [place] [phone] Daysi Greene, BOILER WATER TESTER Social History Tobacco Use Types Packs/Day Years [...] encounter Miscellaneous Notes * Telephone Encounter - Daysi Greene BOILER WATER TESTER - 08/06/2022 1:32 PM EDT [facility] Neurosurgical Physician Assistant Pre-telemedicine Visit Phone Note Rolo Aguilar 1970 [] Patient was not reached Patient was reached and the following information was reviewed/obtained per protocol: [x] Confirmed patient name and date of [x] Confirmed ZOOM downloaded and functioning [] ZOOM appointment link sent if no MyDH [x] Phone number to be reached is: [phone] REVIEW: [x] Review of patient medications completed Have you started on any NEW medications? [] No [] Yes: [x] Confirmed preferred pharmacy: [facility] [place] home delivery Reminders Your provider might ask you what you ate the day prior to the visit Please weigh yourself before the appointment Pedi: Both parent and child need to be present for the visit documented in this encounter Plan of Treatment Upcoming Encounters Date Type Department Care Team (Latest Contact Info) Description 06/07/2024 2:00 PM EDT Office [place] [phone] Joan Castro MD [facility] [place] [address] 06/11/2024 1:03 PM EDT Hospital Encounter [place] [phone] Rachel Carrasco MD [facility] [place] [address] 06/11/2024 1:03 PM EDT - 06/11/2024 1:58 PM EDT Surgery [place] [phone] Rachel Carrasco MD [facility] [place] [address] CYSTO, REMOVAL OF STENT, FOREIGN BODY OR CALCULUS, SIMPLE (WRVU 2.81) 06/23/2024 10:00 AM EDT Office Visit Cardiology at [address] [phone] Mo Horne MD [facility] [place] [address] Scheduled Procedures Name Priority Associated Diagnoses Date/Ti me CYSTO, REMOVAL OF STENT, FOR EIGN BODY OR CALCULUS, SIMPLE (WRVU 2.81) NEPHROLITHIASIS 06/11/2024 1:03 PM EDT documented as of this encounter Visit Diagnoses Not on filedocumented in this encounter Care Teams Medicare Contact Specialist Relationship Specialty Start Date End Date Amira Hooks PA [address] [place] [id number] PCP - General Family Medicine 07/25/22 documented as of this encounter
--- OUTSIDE RECORDS SUMMARY | 2024-06-04 20:42 | XMS_ITS | Encounter Summary ---
Author Organization [facility] Address [facility] [place] [address] Care Team Providers Care Implementation Director Name Role Phone Amira Hooks Primary Care Provider Reason for Visit * Reason Comments Atrial Fibrillation Encounter Details Date Type Department Care Team (Late st Contact Info) Description 12/18/2022 3:00 PM EST Office Visit Cardiology at [address] [phone] Mo Horne MD [facility] [place] [address] Paroxysmal atrial fibrillation Social History Tobacco Use Types [...] Sign Reading Time Taken Comments Blood Pressure 142/81 12/18/2022 3:11 PM EST Pulse 86 12/18/2022 3:11 PM EST Temperature - - Respiratory Rate - - Oxygen Saturation - - Inhaled Oxygen Concentration - - Weight 205 kg (452 lb) 12/18/2022 3:11 PM EST Height 167.6 cm (5' 6) 12/18/2022 3:11 PM EST Body Mass Index 72.95 12/18/2022 3:11 PM EST documented in this encounter Progress Notes * Mo Horne MD - 12/18/2022 3:00 PM EST Images from the original note were not included. Clinical Cardiac Electrophysiology Follow Up Patient ID Rolo Aguilar 1970 [id number] Rolo Aguilar is following up in EP clinic Chief Complaint Paroxysmal atrial arrhythmias History This is a 52 y.o. male following up/being seen in clinic for paroxysmal atrial arrhythmias. He was previously seen and followed by Dr. Escobar, and we first met in September of 2022. From that visit '.. Initially, he underwent EPS in June of [...] He wears an Apple Watch - no arrhythmias....' Does wear CPAP - indicates it works for him Working on weight loss with the bariatric clinic Recently had exposure to propane - developed nausea etc with this - he noted that he was experiencing a 'flutter' sensation. He feels that he is in sinus rhythm today. Recently, perhaps up to 15-20 minutes of atrial fibrillation/flutter. He wears an Apple Watch - no alarms for AF. Fell on some tile recently (orthopedic follow up pending). Problem List Patient Active Problem List Diagnosis ??? Obstructive sleep apnea syndrome ??? Epigastric pain ??? Atrial flutter ??? Bipolar disorder ??? SVT (supraventricular tachycardia) Added automatically from request for surgery [id number] ??? PAF (paroxysmal atrial fibrillation) Added automatically from request for surgery [id number] ??? Flutter-fibrillation ??? H/O cardiac radiofrequency ablation ??? Coronary disease ?? 2017: STEMI. PCI of OM1. EF 60%. Many ER visits to [facility] after this. ??? Heart palpitations ??? Obesity ??? Essential hypertension Review of Systems Review of Systems Constitutional: Positive for weight loss. Cardiovascular: Positive for palpitations. Meds Current Outpatient Medications Medication Sig Dispense Refill ??? Trulicity 0.75 mg/0.5 mL Pen Injector INJECT 3/4 MG SUBCUTANEOUSLY ONCE A WEEK FOR 4 WEEKS, THEN INCREASE TO 1.5MG WEEKLY IF TOLERATED. ??? apixaban (Eliquis) 5 mg Tablet Take [...] 2 times daily as needed for Anxiety. No current facility-administered medications for this visit. Social History Social History Socioeconomic History ??? Marital status: Spouse name: None ??? Number of children: None ??? Years of education: None ??? Highest education level: None Occupational History ??? None Tobacco Use ??? Smoking status: Former Packs/day: 1.50 Years: 15.00 Pack years: 22.50 Types: Cigarettes Quit date: 2009 Years since quittin.1 ??? Smokeless tobacco: Former Types: Chew Quit date: 2013 Vaping Use ??? Vaping Use: Former Substance [...] Brother ??? Coronary Artery Disease Sister Exam Patient Vitals for the past 24 hrs: BP 12/18/22 1511 142/81 Physical Exam Constitutional: Comments: Body mass index is 73.6 kg/m??. HENT: Nose: No congestion. Eyes: Conjunctiva/sclera: Conjunctivae normal. Cardiovascular: Rate and Rhythm: Normal rate. Pulses: Normal pulses. Pulmonary: Effort: Pulmonary effort is normal. Skin: General: Skin is warm. Neurological: General: No focal deficit present. Mental Status: He is alert. Impression Rolo Aguilar is seen in the EP clinic for follow up - a prior patient of Dr Escobar with a history of cavotricuspid isthmus ablation, dual AV node slow pathway modification, posterior wall isolation (PVI/AF ablation), mitral annular flutter ablation (partial); who continues to have episodes of irregular atrial arrhythmias. At his last admission, we had discussed the possibility of using sotalol/multaq/dofetilide. He was recently bothered by an apparent propane/carbon monoxide leak. He remains in sinus rhythm. Recommendations / Plan A) No changes to medications B) Encouraged to continue with weight loss C) Contingency for anti-arrhythmic medication usage D) Routine follow in about 6 months MO HORNE MD Cardiac Electrophysiology [facility] Heart and Vascular [place] 35 minutes of this 45 minute encounter [...] 2:00 PM EDT Office Visit Gastroenterology at [place] [phone] Joan Castro MD [facility] [place] [address] 06/11/2024 1:03 PM EDT Hospital Encounter Main Operating Room [place] [phone] Rachel Carrasco MD [facility] [place] [address] 06/11/2024 1:03 PM EDT - 06/11/2024 1:58 PM EDT Surgery Main Operating Room [place] [phone] Rachel Cararsco MD [facility] [place] [address] CYSTO, REMOVAL OF STENT, FOREIGN BODY OR CALCULUS, SIMPLE (WRVU 2.81) 06/23/2024 10:00 AM EDT Office Visit Cardiology at [address] [phone] Mo Horne MD [facility] [place] [address] Scheduled Procedures Name Priority Associated Diagnoses Date/Ti me CYSTO, REMOVAL OF STENT, FOR EIGN BODY OR CALCULUS, SIMPLE (WRVU 2.81) NEPHROLITHIASIS 06/11/2024 1:03 PM EDT documented as of this encounter Visit Diagnoses Diagnosis Paroxysmal atrial fibrillation Atrial fibrillation documented in this encounter Care Teams Implementation Director Relationship Specialty Start Date End Date Amira Hooks PA [address] [address] PCP - General Family Medicine 07/25/22 documented as of this encounter
--- OUTSIDE RECORDS SUMMARY | 2024-06-04 20:42 | XMS_ITS | Encounter Summary ---
Author Organization Formerly [facility] [place] [address] Care Team Providers Care Sales And Marketing Assistant Name Role Phone Amira Hooks Primary Care Provider Encounter Details Date Type Department Care Team (Latest Contact Info) Description 12/23/2022 Travel Social History Tobacco Use Types Packs/Day [...] 2:00 PM EDT Office [place] [phone] Joan Castro MD [facility] [place] [address] 06/11/2024 1:03 PM EDT Hospital Encounter [place] [phone] Rachel Carrasco MD [facility] UROLOGY [place] [id number] 06/11/2024 1:03 PM EDT - 06/11/2024 1:58 PM EDT Surgery [place] [address] Rachel Carrasco MD [facility] [place] [address] CYSTO, REMOVAL OF STENT, FOREIGN BODY OR CALCULUS, SIMPLE (WRVU 2.81) 06/23/2024 10:00 AM EDT Office Visit Cardiology at [address] [place] [address] Mo Horne MD [facility] [place] [address] Scheduled Procedures Name Priority Associated Diagnoses Date/Ti me CYSTO, REMOVAL OF STENT, FOR EIGN BODY OR CALCULUS, SIMPLE (WRVU 2.81) NEPHROLITHIASIS 06/11/2024 1:03 PM EDT documented as of this encounter Visit Diagnoses Not on filedocumented in this encounter Care Teams Sales And Marketing Assistant Relationship Specialty Start Date End Date Amira Hooks PA [address] [address] PCP - General Family Medicine 07/25/22 documented as of this encounter
--- OUTSIDE RECORDS SUMMARY | 2024-06-04 20:42 | XMS_ITS | Encounter Summary ---
[place] [address] Care Team Providers Care Clinical Biostatistics Director Name Role Phone Amira Hooks Primary Care Provider Reason for Referral * Consultation (Routine) - Authorized Specialty Diagnoses / Procedures Referred By Zeyad mishra Referred To Contact Urology Diagnoses Hematuria, unspecified type Amira Hooks PA [address] [place] [address] [facility] [place] [address] Referral ID Status Reason Start Date Expiration Date Visits Requested Visits Authorized [id number] Authorized Consult, Test & Treat PCP Updated and/or Approved 2023 12/16/2024 6 6 Encounter Details Date Type Department Care Team (Latest Contact Info) Description 12/23/2023 Transcribe Orders eDH Incoming Referrals [phone] Amira Hooks PA [address] [place] [address] [phone] Hematuria, unspecified type Social History Tobacco Use [...] 2:00 PM EDT Office [place] [phone] Joan Castro MD [facility] [place] [address] 06/11/2024 1:03 PM EDT Hospital Encounter [place] [address] Rachel Carrasco MD [facility] [place] [address] 06/11/2024 1:03 PM EDT - 06/11/2024 1:58 PM EDT Surgery [place] [address] Rachel Carrasco MD [facility] [place] [address] CYSTO, REMOVAL OF STENT, FOREIGN BODY OR CALCULUS, SIMPLE (WRVU 2.81) 06/23/2024 10:00 AM EDT Office Visit Cardiology at [address] [place] [address] Mo Horne MD [facility] [place] [address] Scheduled Procedures Name Priority Associated Diagnoses Date/Ti me CYSTO, REMOVAL OF STENT, FOR EIGN BODY OR CALCULUS, SIMPLE (WRVU 2.81) NEPHROLITHIASIS 06/11/2024 1:03 PM EDT Scheduled Referrals Name Type Priority Associated Diagnoses Orde r Schedule Referral to Urology Outpatient Referral Routine Hematuria, unspecified type Ordered: 12/23/2023 documented as of this encounter Visit Diagnoses Diagnosis Hematuria, unspecified type documented in this encounter Care Teams Clinical Biostatistics Director Relationship Specialty Start Date End Date Amira Hooks PA [address] [place] [address] PCP - General Family Medicine 07/25/22 documented as of this encounter
--- OUTSIDE RECORDS SUMMARY | 2024-06-04 20:42 | XMS_ITS | Encounter Summary ---
Author Organization [facility] [place] [address] Care Team Providers Care Counter Stitcher Name Role Phone Amira Hooks Primary Care Provider [phone] Encounter Details Date Type Department Care Team (Latest Contact Info) Description 12/31/2022 Travel Social History Tobacco Use Types Packs/Day [...] 2:00 PM EDT Office Visit [place] [phone] Joan Castro MD [facility] [place] [address] 06/11/2024 1:03 PM EDT Hospital Encounter [place] [phone] Rachel Carrasco MD [facility] UROLOGY [place] [phone] 06/11/2024 1:03 PM EDT - 06/11/2024 1:58 PM EDT Surgery [place] [address] Rachel Carrasco MD [facility] [place] [address] CYSTO, REMOVAL OF STENT, FOREIGN BODY OR CALCULUS, SIMPLE (WRVU 2.81) 06/23/2024 10:00 AM EDT Office Visit Cardiology at [address] [place] [address] Mo Horne MD [facility] [place] [address] Scheduled Procedures Name Priority Associated Diagnoses Date/Ti me CYSTO, REMOVAL OF STENT, FOR EIGN BODY OR CALCULUS, SIMPLE (WRVU 2.81) NEPHROLITHIASIS 06/11/2024 1:03 PM EDT documented as of this encounter Visit Diagnoses Not on filedocumented in this encounter Care Teams Counter Stitcher Relationship Specialty Start Date End Date Amira Hooks PA [address] [address] PCP - General Family Medicine 07/25/22 documented as of this encounter
--- OUTSIDE RECORDS SUMMARY | 2024-06-04 20:42 | XMS_ITS | Encounter Summary ---
Author Organization [facility] Address [facility] [place] [address] Care Team Providers Care Cook Fish Eggs Name Role Phone Amira Hooks Primary Care Provider Reason for Visit * Reason Comments Atrial Fibrillation S/P Ablation Encounter Details Date Type Department Care Team (Late st Contact Info) Description 06/18/2023 1:40 PM EDT Office Visit Cardiology at [address] [address] Mo Horne MD [facility] [place] [address] S/P ablation of atrial fibrillation Social History [...] Sign Reading Time Taken Comments Blood Pressure 122/68 06/18/2023 1:42 PM EDT Pulse 68 06/18/2023 1:42 PM EDT per e cg Temperature - - Respiratory Rate - - Oxygen Saturation - - Inhaled Oxygen Concentration - - Weight 206.8 kg (456 lb) 06/18/2023 1:42 PM EDT Height 167.6 cm (5' 6) 06/18/2023 1:42 PM EDT Body Mass Index 73.6 06/18/2023 1:42 PM EDT documented in this encounter Progress Notes * Mo Horne MD - 06/18/2023 1:40 PM EDT Images from the original note were not included. Clinical Cardiac Electrophysiology Follow Up Patient ID Rolo Aguilar [id number] Rolo Aguilar is following up in EP [...] wears an Apple Watch - no arrhythmias....' He was recently evaluated in the ED again for palpitations (March of 2023) and was found to be in sinus tachycardia. No recently documented atrial fibrillation. He was found to be dehydrated. Every nowand then he has a sensation of flutter- but his Apple watch does not indicate. He has since started to see a psychologist, because of PTSD (some of this appears to be related to the pericardiocentesis procedure after his ablation in January of 2021) He is drumming for exercise - feels Ok doing this. Problem List Patient Active Problem List Diagnosis Obstructive sleep apnea syndrome Epigastric pain Atrial flutter Bipolar disorder SVT (supraventricular tachycardia) Added automatically from request for surgery [id number] PAF (paroxysmal atrial fibrillation) Added automatically from request for surgery [id number] Flutter-fibrillation H/O cardiac radiofrequency ablation Coronary disease 2017: STEMI. PCI of OM1. EF 60%. Many ER visits to [facility] after this. Heart palpitations Obesity Essential hypertension Review of Systems Review of Systems Constitutional: Positive for weight loss. Cardiovascular: Positive for palpitations. Meds Current Outpatient Medications Medication Sig Dispense Refill Dexilant [address] capsule Take 60 mg by mouth daily. loratadine (Claritin) 10 mg Tablet Take 10 mg by mouth daily as needed. metoclopramide (Reglan) 5 mg tablet Take 5 mg by mouth 3 times daily as needed. Trulicity 0.75 mg/0.5 mL Pen Injector INJECT 3/4 MG SUBCUTANEOUSLY ONCE A WEEK FOR 4 WEEKS, THEN INCREASE TO 1.5MG WEEKLY IF TOLERATED. apixaban (Eliquis) 5 mg Tablet Take 1 [...] 3 times daily as needed for Anxiety. No current facility-administered medications for this visit. Social History Social History Socioeconomic History Marital status: Spouse name: None Number of children: None Years of education: None Highest education level: None Occupational History None Tobacco Use Smoking status: Former Packs/day: 1.50 Years: 15.00 Pack years: 22.50 Types: Cigarettes Quit date: 2009 Years since quittin.6 Smokeless tobacco: Former Types: Chew Quit date: 2013 Vaping Use Vaping Use: Former Substance and Sexual Activity Alcohol use: No Drug use: Yes Types: Marijuana Comment: medical MJ Sexual activity: Never Other Topics Concern None Social History Narrative None Social Determinants of Health Financial Resource Strain: Not on file Food Insecurity: Not on file Transportation Needs: Not on file Physical Activity: Not on file Housing Stability: Not on file Family History Family History Problem Relation Age of Onset Coronary Artery Disease Father Hypertension Father Coronary Artery Disease Brother Hypertension Brother Diabetes Brother Coronary Artery Disease Sister Exam Patient Vitals for the past 24 hrs: Pulse BP 06/18/23 1342 68 122/68 Physical Exam Constitutional: Comments: Body mass index is 73.6 kg/m??. HENT: Nose: No congestion. Eyes: Conjunctiva/sclera: Conjunctivae normal. Cardiovascular: Rate and Rhythm: Normal rate. Pulses: Normal pulses. Pulmonary: Effort: Pulmonary effort is normal. Skin: General: Skin is warm. Neurological: General: No focal deficit present. Mental Status: He is alert. ECG: sinus rhythm 68 bpm, CT 180ms, QRS 100ms, QT 400ms Praful Aguilar is seen in the EP clinic for follow up - a prior patient of Dr Escobar with a history of cavotricuspid isthmus ablation, dual AV node slow pathway modification, posterior wall isolation (PVI/AF ablation), mitral annular flutter ablation (partial). Overall, he has been having some palpitations - but no documented arrhythmias. For now, we recommend continued vigilance. Recommendations / Plan A) No changes to medications B) Encouraged to continue with weight loss C) Contingency for anti-arrhythmic medication usage D) Routine follow in about 12 months MO HORNE MD Cardiac Electrophysiology [facility] [place] 20 minutes of this minute encounter were spent preparing to see the patient (e.g. review of tests),obtaining and/or reviewing separately obtained history, performing a medically appropriate examination and/or evaluation, counseling and educating the patient, ordering medications, tests, or procedures, documenting clinical information in the electronic medical record, Independently interpreting results Cc: SONNY Gambino documented in this encounter Plan of Treatment Upcoming Encounters Date Type Department Care Team (Latest Contact Info) Description 06/07/2024 2:00 PM EDT Office [place] [address] Joan Castro MD [facility] [place] [address] 06/11/2024 1:03 PM EDT Hospital Encounter Main Operating Room [place] [phone] Rachel Carrasco MD [facility] [place] [address] 06/11/2024 1:03 PM EDT - 06/11/2024 1:58 PM EDT Surgery Main Operating Room [address] Rachel Carrasco MD [facility] [place] [address] CYSTO, REMOVAL OF STENT, FOREIGN BODY OR CALCULUS, SIMPLE (WRVU 2.81) 06/23/2024 10:00 AM EDT Office Visit Cardiology at [address] [place] [address] Mo Horne MD [facility] [place] [address] Scheduled Procedures Name Priority Associated Diagnoses Date/Ti me CYSTO, REMOVAL OF STENT, FOR EIGN BODY OR CALCULUS, SIMPLE (WRVU 2.81) NEPHROLITHIASIS 06/11/2024 1:03 PM EDT documented as of this encounter Visit Diagnoses Diagnosis S/P ablation of atrial fibrillation Other postprocedural status documented in this encounter Care Teams Cook Fish Eggs Relationship Specialty Start Date End Date Amira Hooks PA [address] [place] [id number] PCP - General Family Medicine 07/25/22 documented as of this encounter
--- OUTSIDE RECORDS SUMMARY | 2024-06-04 20:42 | XMS_ITS | Encounter Summary ---
Author Organization [facility] Address [facility] [place] [address] Care Team Providers Care Charge Lpn Name Role Phone Amira Hooks Primary Care Provider Encounter Details Date Type Department Care Team (Late st Contact Info) Description 03/14/2023 10:00 AM EDT Office Visit Psychiatry [place] [address] Joana Mabry, PhD [facility] [place] [address] Post-traumatic stress disorder, unspecified Social History Tobacco [...] Progress Notes * Joana Mabry, PhD - 03/14/2023 10:00 AM EDT INDIVIDUAL THERAPY PROGRESS NOTE CPT CODES 88018, 50854, 44350 LOCATION: Office SESSION DURATION: 36 minutes ATTENDEES: Patient PRIMARY COMPLAINT/DIAGNOSIS: Post-traumatic stress disorder (PTSD) TREATMENT MODALITY: CBT PATIENT REPORT OF CURRENT FUNCTIONING/CHANGES: The patient reported that his anxiety has continued,and may be a bit worse than when he came in for his initial evaluation, and that he still has wicked nightmares. He previously delayed starting treatment with me because of an urgent medical situation with his brother; patient reported his brother in the past few weeks. He also reported that he believes being in the hospital with his brother, hearing machines beeping, etc. triggeredhis PTSD. He also reports that my bipolar mood swings are worse -- changing 5-7 times a day and that his mood is more depressed than up. CENTRAL THEME OF SESSION: Discuss rationale for prolonged exposure (PE) IN-SESSION PROCEDURES: During today's session, we discussed changes in the patient's life and symptoms since our initial evaluation (see above.) We reviewed the plan to do prolonged exposure to address symptoms of PTSD. The patient understands that I will be consulting with a colleague with expertise in PE throughout this work, and agreed with this. Today we discussed the rationale for prolonged exposure, as well as two factors that contribute to continuing distress related to past trauma, including avoidance and negative changes in thinking. CLINICAL FINDINGS: PROGRESS FROM BASELINE: same as pre-treatment PROGRESS FROM LAST SESSION:same as last session Patient-reported Psychiatry Follow-up scores and responses: PHQ9 03/13/2023 8:52 PM PHQ-9 Patient Reported Responses Little interest or pleasure Several Days Down, depressed, hopeless Several Days Trouble sleeping Not at all Tired or no energy Several Days Poor appetite or overeating Several days Feeling like a failure Not at all Trouble concentrating (newspaper) Several Days Moving or speaking slowly Not at all Would be better off Not at all PHQ-9 Score 5 (Mild Depression) GAD7 03/13/2023 8:52 PM ANGELO-7 Patient Reported Responses Nervous, anxious (Patient) More than half the days Unable to stop worrying (Patient) Several days Worrying about different things (Patient) Several days Trouble relaxing (Patient) More than half the days Restless (Patient) Not at all Easily annoyed, irritable (Patient) Several days Afraid something awful will happen (Patient) Not at all Difficulty (Patient) Somewhat difficult ANGELO-7 Score (Patient) 7 (Mild Anxiety) Psychiatry Improvement Scale: 03/13/2023 8:52 PM Psychiatry Improvement Scale Improvement Scale No change MENTAL STATUS EXAM: AFFECT: Appropriate. BEHAVIOR: WNL COGNITION: Cognition grossly intact. THOUGHT CONTENT: denied suicidal ideation ASSESSMENT/OBSERVATIONS: Mr. Aguilar arrived late for today's session, and as such it was a shorter visit than will typically be the case. He was engaged during the session, making good eye contact, speech was normal pitch/rate/rhythm, thought content logical and linear, remaining on-topic throughout the session. He expressed motivation for engaging in PE and a strong desire to work toward reducing interference from anxiety/trauma. PLAN: Revised goals or interventions: Continue with plan to do PE for PTSD; during our next session, we will complete a structured interview to further assess the impact of the trauma. Safety Risk Management: No new risks identified. Patient denied SI. Homework: None assigned. Next Appointment: 03/26 at 10am For mental health emergencies, call 988 from anywhere in the [facility]. State specific information for [place] and [place] crisis services are as follows and should be used to access local resources: [facility] Mental [facility] Crises Services [facility] Crisis Line text or call Visit [employer] for further information [place] Call your local community crisis line at: [place]: [facility] [phone] [place]: [facility] [phone] [place]: [facility] [phone] [place]: [facility] [phone] [place]: [facility] [phone] [place] is[place] Esmer[place]: [facility] Counseling and Support [phone] [place]: [facility] Mental Health [phone] on weekdays 8AM-4:30PM and [phone] on nights and weekends [place]: [facility] [place]: [facility] [phone] [place]: [facility] [phone] [place]: [facility] Services, [place]: HCRS [place]: HCRS or Text [place] to [phone] For further information for [place] residents: https://mentalhealth.[place].gov/services/emergency-services/bln-pqx-wigx National Suicide Prevention Hotline: For patients cared for in the Department of Psychiatry, you can reach your mental health clinician at [phone]. Joana Mabry, PhD documented in this encounter Plan of Treatment Upcoming Encounters Date Type Department Care Team (Latest Contact Info) Description 06/07/2024 2:00 PM EDT Office [place] [phone] Joan Castro MD [facility] [place] [address] 06/11/2024 1:03 PM EDT Hospital Encounter [place] [phone] Rachel Carrasco MD [facility] [place] [address] 06/11/2024 1:03 PM EDT - 06/11/2024 1:58 PM EDT Surgery [place] [phone] Rachel Carrasco MD [facility] [place] [address] CYSTO, REMOVAL OF STENT, FOREIGN BODY OR CALCULUS, SIMPLE (WRVU 2.81) 06/23/2024 10:00 AM EDT Office Visit Cardiology at [address] [address] Mo Horne MD [facility] [place] [address] Scheduled Procedures Name Priority Associated Diagnoses Date/Ti me CYSTO, REMOVAL OF STENT, FOR EIGN BODY OR CALCULUS, SIMPLE (WRVU 2.81) NEPHROLITHIASIS 06/11/2024 1:03 PM EDT documented as of this encounter Visit Diagnoses Diagnosis Post-traumatic stress disorder, unspecified documented in this encounter Care Teams Charge Lpn Relationship Specialty Start Date End Date Amira Hooks PA [address] [place] [id number] PCP - General Family Medicine 07/25/22 documented as of this encounter
--- OUTSIDE RECORDS SUMMARY | 2024-06-04 20:42 | XMS_ITS | Encounter Summary ---
Author Organization [facility] [place] [address] Care Team Providers Care International Sales Manager Name Role Phone Amira Hooks Primary Care Provider Encounter Details Date Type Department Care Team (Latest Contact Info) Description 12/24/2023 Travel Social History Tobacco Use Types Packs/Day Years Used Date Smoking Tobacco: Former Cigarettes 1.5 15 1 995 - 2009 Smokeless Tobacco: Former Chew Quit: 2013 Alcohol Use Standard Drinks/Week Comments No 0 (1 standard drink = 0.6 oz pur e alcohol) [facility] Inpatient Questions Answer Date Recorded Does [...] 2:00 PM EDT Office [place] [address] Joan Castro MD [facility] [place] [address] 06/11/2024 1:03 PM EDT Hospital Encounter [place] [phone] Rachel Carrasco MD [facility] [place] [address] 06/11/2024 1:03 PM EDT - 06/11/2024 1:58 PM EDT Surgery [place] [phone] Rachel Carrasco MD [facility] [place] [address] CYSTO, REMOVAL OF STENT, FOREIGN BODY OR CALCULUS, SIMPLE (WRVU 2.81) 06/23/2024 10:00 AM EDT Office Visit Cardiology at [address] [address] Mo Horne MD [facility] [place] [address] Scheduled Procedures Name Priority Associated Diagnoses Date/Ti me CYSTO, REMOVAL OF STENT, FOR EIGN BODY OR CALCULUS, SIMPLE (WRVU 2.81) NEPHROLITHIASIS 06/11/2024 1:03 PM EDT documented as of this encounter Visit Diagnoses Not on filedocumented in this encounter Care Teams International Sales Manager Relationship Specialty Start Date End Date Amira Hooks PA [address] [place] [address] PCP - General Family Medicine 07/25/22 documented as of this encounter
--- OUTSIDE RECORDS SUMMARY | 2024-06-04 20:42 | XMS_ITS | Encounter Summary ---
Author Organization [facility] Address [facility] [address] Care Team Providers Care Visual Presentation Manager Name Role Phone Bin Bowman MD Primary Care Provider Reason for Referral * Diagnostic Test (Routine) - Closed Specialty Diagnoses / Procedures Referred By Contac t Referred To Contact Cardiology Diagnoses PAF (paroxysmal atrial fibrillation) Procedures Ziopatch 48 Hrs-15 Days Fadi Escobar MD [facility] [place] [address] [facility] [place] [address] Referral ID Status Reason Start Date Expiration Date V isits Requested Visits Authorized [id number] Closed Specialty Service Requested 12/27/2021 12/27/2022 1 1 Reason for Visit * Diagnostic Test (Routine) - Closed Specialty Diagnoses / Procedures Referred By Contac t Referred To Contact Cardiology Diagnoses PAF (paroxysmal atrial fibrillation) Procedures Ziopatch 48 Hrs-15 Days Fadi Escobar MD [facility] [place] [address] [facility] [place] [address] Referral ID Status Reason Start Date Expiration Date V isits Requested Visits Authorized [id number] Closed Specialty Service Requested 12/27/2021 12/27/2022 1 1 Encounter Details Date Type Department Care Team (Latest Contact Info) Description 07/02/2022 8:14 AM EDT - 07/02/2022 11:59 PM EDT Hospital Encounter Non-Invasive Cardiology Lab [facility] [place] [address] Fadi Escobar MD [facility] [place] [address] PAF (paroxysmal atrial fibrillation) Discharge Disposition: Home Social History Tobacco Use [...] Sig Dispensed Refills Start Date End Date apixaban (Eliquis) 5 mg TabletIndications:Atrial flutter, unspecified type Take 1 tablet by mouth 2 times daily. 180 tablet 1 04/24/2022 atorvastatin (Lipitor) 20 mg TabletIndications:Hyperl ipidemia, unspecified hyperlipidemia type Take 1 tablet by [...] g 1 12/19/2020 lisinopriL (Prinivil;Zestril) 2.5 mg TabletIndications:Essent ial hypertension Take 1 tablet by mouth daily. [...] 3 times daily as needed for Anxiety. AMIOdarone (PACERONE) 400 mg TabletIndications:Flutte r-fibrillation TAKE ONE TABLET BY MOUTH EVERY DAY 90 tablet 08/09/2021 08/06/2022 pantoprazole EC (Protonix) 40 mg Tablet, Delayed Release (E.C.) Take 1 tablet by mouth daily. 90 tablet 3 03/19/2021 06/18/2023 loperamide (Imodium A-D) 2 mg Capsule Take 2 capsules by mouth 4 times daily as needed for Diarrhea. 30 tablet 01/13/2021 08/06/2022 documented as of this encounter Plan of Treatment Upcoming Encounters Date Type Department Care Team (Latest Contact Info) Description 06/07/2024 2:00 PM EDT Office [place] [phone] Joan Castro MD [facility] [place] [address] 06/11/2024 1:03 PM EDT Hospital Encounter [place] [phone] Rachel Carrasco MD [facility] [place] [address] 06/11/2024 1:03 PM EDT - 06/11/2024 1:58 PM EDT Surgery [place] [phone] Rachel Carrasco MD [facility] [place] [address] CYSTO, REMOVAL OF STENT, FOREIGN BODY OR CALCULUS, SIMPLE (WRVU 2.81) 06/23/2024 10:00 AM EDT Office Visit Cardiology at [address] [place] [address] Mo Horne MD [facility] [address] Scheduled Procedures Name Priority Associated Diagnoses Date/Ti me CYSTO, REMOVAL OF STENT, FOR EIGN BODY OR CALCULUS, SIMPLE (WRVU 2.81) NEPHROLITHIASIS 06/11/2024 1:03 PM EDT documented as of this encounter Procedures Procedure Name Priority Date/Time Associated Diagnosis Comments ZIOPATCH 48 HRS-15 DAYS Routine 07/02/2022 8:16 AM EDT PAF (paroxysmal atrial fibrillation) documented in this encounter Results * Ziopatch 48 Hrs-15 Days (07/02/2022 8:16 AM EDT) Anatomical Region Laterality Modality Other Narrative 07/26/2022 5:16 PM EDT [facility] ? Zio Patch? Ambulatory Cardiac Event Monitor Report Duration of recording - 13 days 16 hours ??(after removal of artifact) Summary Data Predominant rhythm - sinus rhythm Minimum sinus rate - 45 bpm Maximum sinus rate - 120 bpm Average heart rate - 62 bpm Atrial fibrillation - none Ectopic beats atrial premature beats (APC? s) Rare ventricular premature beats (VPC's) rare Tachyarrhythmias 11 Supraventricular Tachycardia runs occurred, the run with the fastest interval lasting 9 beats with a max rate of 148 bpm, the longest lasting 15.1 secs with an avg rate of 92 bpm. Some episodes of Supraventricular Tachycardia may be possible Atrial Tachycardia. Junctional Rhythm was present. Supraventricular Tachycardia and Junctional Rhythm were detected within +/- 45 seconds of symptomatic patient event(s). Bradyarrhythmias No severe or symptomatic bradycardia, significant pauses (>3 seconds) or high grade AV block. Triggered and Patient Diary Events There were 19 triggered and 20 patient diary events which occurred with SVT, sinus, junctional, and isolated SVE/VEs Conclusion(s): ?? 1) Predominant rhythm is sinus 2) There were 11 episodes of SVT, some symptomatic, lasting as long as 15 seconds. There were episodes of junctional rhythm 3) No severe or symptomatic bradycardia, significant pauses (>3 seconds) or high grade AV block. Fadi Esocbar MD [facility] documented in this encounter Visit Diagnoses Diagnosis PAF (paroxysmal atrial fibrillation) Atrial fibrillation documented in this encounter Care Teams Visual Presentation Manager Relationship Specialty Start Date End Date Bin Bowman MD [address] [place] [id number] PCP - General General Internal Medicine 04/21/1707/11 documented as of this encounter
--- OUTSIDE RECORDS SUMMARY | 2024-06-04 20:42 | XMS_ITS | Encounter Summary ---
Author Organization [facility] Address [facility] [place] [address] Care Team Providers Care Business Process Specialist Name Role Phone Amira Hooks Primary Care Provider Encounter Details Date Type Department Care Team (Latest Contact Info) Description 03/26/2023 10:00 AM EDT TH Visit (TeleHealth) Psychiatry [place] [address] Joana Mabry, PhD [facility] [address] [place] [address] Post-traumatic stress disorder, unspecified Social History Tobacco [...] Progress Notes * Joana Mabry, PhD - 03/26/2023 10:00 AM EDT INDIVIDUAL THERAPY PROGRESS NOTE CPT CODES 33199, 12340, 49033 LOCATION: Office SESSION DURATION: 45 minutes (50 minutes) ATTENDEES: Patient PRIMARY COMPLAINT/DIAGNOSIS: Post-traumatic stress disorder (PTSD) TREATMENT MODALITY: CBT PATIENT REPORT OF CURRENT FUNCTIONING/CHANGES: The patient reported no significant changes since his last session and that I still have nightmares a lot. CENTRAL THEME OF SESSION: Complete trauma interview, review role of avoidance and how prolonged exposure (PE) targets this IN-SESSION PROCEDURES: During today's session, we completed a semistructured trauma interview as part of the prolonged exposure protocol. As part of this interview, Mr. Aguilar described that the event which continues to interfere the most was a medical procedure completed the day after his most recent heart ablation. He described avoidance of hospitals, sights/sounds associated with hospitals,and avoidance of doing things that he worries could lead to him having to go to a hospital (e.g., if he had an accident.) He denied problematic use of substances and denied suicidal ideation. We reviewed the role that avoidance plays in maintaining anxiety, and how PE targets this. CLINICAL FINDINGS: PROGRESS FROM BASELINE: same as [...] ASSESSMENT/OBSERVATIONS: Mr. Aguilar was on-time for this telephone appointment. He was engaged during the session, speech was normal pitch/rate/rhythm, thought content logical and linear, remaining on-topic throughout the session. PLAN: Revised goals or interventions: Continue with plan to do PE for PTSD; during our next session, we will discuss common symptoms of PTSD. Safety Risk Management: No new risks identified. Patient denied SI. Homework: None assigned. Next Appointment: 04/09 at 10am For mental health emergencies, call [phone] from anywhere in the [facility]. State specific information for [place] and [place] crisis services are as follows and should be used to access local resources: [facility] Mental Health Crises Services [facility] Crisis Line text or call Visit www.PCS [employer] for further information [place] Call your local [facility] crisis line at: [place]: Counseling Service [facility] [phone] [place]: [facility] [phone] [place]: [facility] [phone] [place]: [facility] [phone] [place]: [facility] [phone] Asa israel [place]: [facility] Counseling and Support [phone] [place]: [facility] [phone] on weekdays 8AM-4:30PM and [phone] on nights and weekends [place]: Rashida Hurd [place]: [facility] [phone] [place]: [facility] Services [phone] [place]: [facility] Services, [place]: HCRS [place]: HCRS or Text [place] to [phone] For further information for [place] residents: [email or web address]/emergency-services/jmy-rkt-iswz National Suicide Prevention Hotline: For patients cared for in the Department of Psychiatry, you can reach your mental health clinician at [phone]. Joana Mabry, PhD documented in this encounter Plan of Treatment Upcoming Encounters Date Type Department Care Team (Latest Contact Info) Description 06/07/2024 2:00 PM EDT Office [place] [phone] Joan Castro MD [facility] [place] [address] 06/11/2024 1:03 PM EDT Hospital Encounter [place] [phone] Rachel Carrasco MD [facility] [place] [address] 06/11/2024 1:03 PM EDT - 06/11/2024 1:58 PM EDT Surgery [place] [phone] Rachel Carrasco MD [facility] [place] [address] CYSTO, REMOVAL OF STENT, FOREIGN BODY OR CALCULUS, SIMPLE (WRVU 2.81) 06/23/2024 10:00 AM EDT Office Visit Cardiology at [address] [place] [address] Mo Horne MD [facility] [place] [address] Scheduled Procedures Name Priority Associated Diagnoses Date/Ti me CYSTO, REMOVAL OF STENT, FOR EIGN BODY OR CALCULUS, SIMPLE (WRVU 2.81) NEPHROLITHIASIS 06/11/2024 1:03 PM EDT documented as of this encounter Visit Diagnoses Diagnosis Post-traumatic stress disorder, unspecified documented in this encounter Care Teams Business Process Specialist Relationship Specialty Start Date End Date Amira Hooks PA [address] [address] PCP - General Family Medicine 07/25/22 documented as of this encounter
--- OUTSIDE RECORDS SUMMARY | 2024-06-04 20:42 | XMS_ITS | Encounter Summary ---
Author Organization [facility] [place] [address] Care Team Providers Care Scientific Informatics Project Leader Name Role Phone Amira Hooks Primary Care Provider [phone] Encounter Details Date Type Department Care Team (Latest Contact Info) Description 04/06/2023 Travel Social History Tobacco Use Types Packs/Day Years Used Date Smoking Tobacco: Former Cigarettes 1.5 15 1 995 - 2009 Smokeless Tobacco: Former Chew Quit: 2013 Alcohol Use Standard Drinks/Week Comments No 0 (1 standard drink = 0.6 oz pur e alcohol) [facility] Inpatient Questions Answer Date Recorded Does [...] 2:00 PM EDT Office [place] [address] Joan Castro MD [facility] [place] [address] 06/11/2024 1:03 PM EDT Hospital Encounter [place] [phone] Rachel Carrasco MD [facility] [place] [address] 06/11/2024 1:03 PM EDT - 06/11/2024 1:58 PM EDT Surgery [place] [phone] Rachel Carrasco MD [facility] [place] [address] CYSTO, REMOVAL OF STENT, FOREIGN BODY OR CALCULUS, SIMPLE (WRVU 2.81) 06/23/2024 10:00 AM EDT Office Visit Cardiology at [address] [address] Mo Horne MD [facility] [place] [address] Scheduled Procedures Name Priority Associated Diagnoses Date/Ti me CYSTO, REMOVAL OF STENT, FOR EIGN BODY OR CALCULUS, SIMPLE (WRVU 2.81) NEPHROLITHIASIS 06/11/2024 1:03 PM EDT documented as of this encounter Visit Diagnoses Not on filedocumented in this encounter Care Teams Scientific Informatics Project Leader Relationship Specialty Start Date End Date Amira Hooks PA [address] [place] [id number] PCP - General Family Medicine 07/25/22 documented as of this encounter
--- OUTSIDE RECORDS SUMMARY | 2024-06-04 20:42 | XMS_ITS | Encounter Summary ---
Author Organization [facility] Address [facility] [place] [address] Care Team Providers Care Obstetrics Scrub Nurse Name Role Phone Amira Hooks Primary Care Provider [phone] Reason for Referral * Psychiatric (Routine) - Closed Specialty Diagnoses / Procedures Referred By Contestuardo t Referred To Contact Psychiatry Diagnoses Bipolar affective disorder, remission status unspecified Panic disorder Depression with anxiety Coty Barr APRN [address] [place] [address] Bin Hughes, PhD [facility] DR [place] [address] Referral ID Status Reason Start Date Expiration Date V isits Requested Visits Authorized [id number] Closed Consult, Test & Treat PCP Updated and/or Approved 07/25/2022 07/25/2023 6 6 Encounter Details Date Type Department Care Team (Latest Contact Info) Description 07/25/2022 Transcribe Orders eDH Incoming Referrals [phone] Coty Barr APRN [address] [place], [place] [address] Bipolar affective disorder, remission status unspecified; Panic disorder; Depression with anxiety Social History Tobacco Use Types Packs/Day Years [...] 2:00 PM EDT Office Visit Gastroenterology at [place] [phone] Joan Castro MD [facility] [place] [address] 06/11/2024 1:03 PM EDT Hospital Encounter Main Operating Room [place] [phone] Rachel Carrasco MD [facility] [place] [address] 06/11/2024 1:03 PM EDT - 06/11/2024 1:58 PM EDT Surgery Main Operating Room [place] [phone] Rachel Carrasco MD [facility] [place] [address] CYSTO, REMOVAL OF STENT, FOREIGN BODY OR CALCULUS, SIMPLE (WRVU 2.81) 06/23/2024 10:00 AM EDT Office Visit Cardiology at [address] [place] [address] Mo Horne MD [facility] [place] [address] Scheduled Procedures Name Priority Associated Diagnoses Date/Ti me CYSTO, REMOVAL OF STENT, FOR EIGN BODY OR CALCULUS, SIMPLE (WRVU 2.81) NEPHROLITHIASIS 06/11/2024 1:03 PM EDT Scheduled Referrals Name Type Priority Associated Diagnoses Order Schedule Referral to Psychiatry Outpatient Referral Routine Bipolar affective disorder, remission status unspecified Panic disorder Depression with anxiety Ordered: 07/25/2022 documented as of this encounter Visit Diagnoses Diagnosis Bipolar affective disorder, remission status unspecified Panic disorder Panic disorder without agoraphobia Depression with anxiety Dysthymic disorder documented in this encounter Care Teams Obstetrics Scrub Nurse Relationship Specialty Start Date End Date Amira Hooks PA [address] [place] [id number] PCP - General Family Medicine 07/25/22 documented as of this encounter
--- OUTSIDE RECORDS SUMMARY | 2024-06-04 20:42 | XMS_ITS | Encounter Summary ---
Author Organization [facility] [place] [address] Care Team Providers Care Color Depositing Machine Tender Name Role Phone Amira Hooks Primary Care Provider [phone] Encounter Details Date Type Department Care Team (Latest Contact Info) Description 01/02/2023 Travel Social History Tobacco Use Types Packs/Day [...] PM EDT Office Visit [place] [phone] Joan Castro MD [facility] [place] [address] 06/11/2024 1:03 PM EDT Hospital Encounter [place] [phone] Rachel Carrasco MD [facility] UROLOGY [place] 2003256 06/11/2024 1:03 PM EDT - 06/11/2024 1:58 PM EDT Surgery [place] [address] Rachel Carrasco MD [facility] [place] [address] CYSTO, REMOVAL OF STENT, FOREIGN BODY OR CALCULUS, SIMPLE (WRVU 2.81) 06/23/2024 10:00 AM EDT Office Visit Cardiology at [address] [place] [address] Mo Horne MD [facility] [place] [address] Scheduled Procedures Name Priority Associated Diagnoses Date/Ti me CYSTO, REMOVAL OF STENT, FOR EIGN BODY OR CALCULUS, SIMPLE (WRVU 2.81) NEPHROLITHIASIS 06/11/2024 1:03 PM EDT documented as of this encounter Visit Diagnoses Not on filedocumented in this encounter Care Teams Color Depositing Machine Tender Relationship Specialty Start Date End Date Amira Hooks PA [address] [address] PCP - General Family Medicine 07/25/22 documented as of this encounter
--- OUTSIDE RECORDS SUMMARY | 2024-06-04 20:42 | XMS_ITS | Encounter Summary ---
Author Organization [facility] Address [facility] [place] [address] Care Team Providers Care Supervisor Paste Mixing Name Role Phone Amira Hooks Primary Care Provider Encounter Details Date Type Department Care Team (Late st Contact Info) Description 04/18/2023 Telephone Psychiatry and [place] [address] Joana Mabry, PhD [facility] [place] [address] Social History Tobacco Use Types Packs/Day Years Used Date Smoking Tobacco: Former Cigarettes 1.5 15 1 995 - 2009 Smokeless Tobacco: Former Chew Quit: 2013 Alcohol Use Standard Drinks/Week Comments No 0 (1 standard drink = 0.6 oz pur e alcohol) [facility] Inpatient Questions Answer Date Recorded Does Anyone [...] 2:00 PM EDT Office Visit [place] [address] Joan Castro MD [facility] [place] [address] 06/11/2024 1:03 PM EDT Hospital Encounter Main Operating Room [place] [phone] Rachel Carrasco MD [facility] [place] [address] 06/11/2024 1:03 PM EDT - 06/11/2024 1:58 PM EDT Surgery Main Operating Room [place] [phone] Rachel Carrasco MD [facility] [place] [address] CYSTO, REMOVAL OF STENT, FOREIGN BODY OR CALCULUS, SIMPLE (WRVU 2.81) 06/23/2024 10:00 AM EDT Office Visit Cardiology at [address] [address] Mo Horne MD [facility] [place] [address] Scheduled Procedures Name Priority Associated Diagnoses Date/Ti me CYSTO, REMOVAL OF STENT, FOR EIGN BODY OR CALCULUS, SIMPLE (WRVU 2.81) NEPHROLITHIASIS 06/11/2024 1:03 PM EDT documented as of this encounter Visit Diagnoses Not on filedocumented in this encounter Care Teams Supervisor Paste Mixing Relationship Specialty Start Date End Date Amira Hooks PA [address] [place] [id number] PCP - General Family Medicine 07/25/22 documented as of this encounter
--- OUTSIDE RECORDS SUMMARY | 2024-06-04 20:42 | XMS_ITS | Encounter Summary ---
[place] [address] Care Team Providers Care Film Projector Operator Name Role Phone Amira Hooks Primary Care Provider [phone] Reason for Referral * Diagnostic Test (Routine) - Closed Specialty Diagnoses / Procedures Referred By Contac t Referred To Contact Radiology Diagnoses Hematuria, unspecified type Procedures CT Abdomen & Pelvis wo Contrast Amira Hooks PA [address] [place] [address] [facility] [place] [address] Referral ID Status Reason Start Date Expiration Date V isits Requested Visits Authorized [id number] Closed Specialty Service Requested 12/22/2023 06/21/2025 1 1 Reason for Visit * Diagnostic Test (Routine) - Closed Specialty Diagnoses / Procedures Referred By Contac t Referred To Contact Radiology Diagnoses Hematuria, unspecified type Procedures CT Abdomen & Pelvis wo Contrast Amira Hooks PA [address] [place] [address], [place] [address] [facility] [place] [address] Referral ID Status Reason Start Date Expiration Date V isits Requested Visits Authorized [id number] Closed Specialty Service Requested 12/22/2023 06/21/2025 1 1 Encounter Details Date Type Department Care Team (Latest Contact Info) Description 12/24/2023 2:20 PM EST - 12/24/2023 11:59 PM EST Hospital Encounter CT Scan at [facility] [place] [address] Amira Hooks PA [address] [place] [id number] Hematuria, unspecified type Discharge Disposition: Home Social History Tobacco Use Types Packs/Day Years Used Date Smoking Tobacco: Former Cigarettes 1.5 15 1 - 2009 Smokeless Tobacco: Former Chew Quit: 2013 Alcohol Use Standard Drinks/Week Comments No 0 (1 standard drink = 0.6 oz pur e alcohol) [facility] Inpatient Questions Answer Date Recorded [...] 03/26/2024 ipratropium (ATROVENT) 21 mcg (0.03 %) [place], Non-Aerosol INSTILL 2 SPRAYS VIA NOSTRILS AT [...] 2:00 PM EDT Office [place] [phone] Joan Castro MD [facility] [place] [address] 06/11/2024 1:03 PM EDT Hospital Encounter [place] [address] Rachel Carrasco MD [facility] [place] [address] 06/11/2024 1:03 PM EDT - 06/11/2024 1:58 PM EDT Surgery [place] [phone] Rachel Carrasco MD [facility] [place] [address] CYSTO, REMOVAL OF STENT, FOREIGN BODY OR CALCULUS, SIMPLE (WRVU 2.81) 06/23/2024 10:00 AM EDT Office Visit Cardiology at [address] [place] [address] Mo Horne MD [facility] [place] [address] Scheduled Procedures Name Priority Associated Diagnoses Date/Ti me CYSTO, REMOVAL OF STENT, FOR EIGN BODY OR CALCULUS, SIMPLE (WRVU 2.81) NEPHROLITHIASIS 06/11/2024 1:03 PM EDT documented as of this encounter Procedures Procedure Name Priority Date/Time Associated Diagnosis Comments CT ABDOMEN AND PELVIS WO CONTRAST Routine 12/24/2023 2:37 PM EST Hematuria, unspecified type documented in this encounter Results * CT Abdomen & Pelvis wo Contrast (12/24/2023 2:37 PM EST) Anatomical Region Laterality Modality Abdomen, Pelvis Computed Tomogra phy Impressions 12/24/2023 4:31 PM EST 1. ??Possible punctate 2 mm nonobstructing right mid ureteral calculus. No other radiodense urinary tract calculi. 2. ??Hepatic steatosis. I have personally reviewed the image(s) and the resident's interpretation and agree with the findings, Erich Ordonez MD at 12/24/2023 4:31 PM Thank you for letting us participate in the care of this patient. ??If you are a health care provider and have any questions regarding this report, please contact the number below. ??For patients who have questions please contact the health manager medicare that requested your imaging first. ? Narrative 12/24/2023 4:31 PM EST EXAMINATION: CT ABDOMEN AND PELVIS WO CONTRAST CLINICAL HISTORY: Blood in urine, hematuria unspecified Blood in urine, hematuria unspecified R31.9, Hematuria, unspecified TECHNIQUE: Helical CT of the abdomen and pelvis without intravenous contrast. Oral contrast was not administered. Multiplanar reformatted images were generated. COMPARISON: None FINDINGS: The absence of intravenous contrast limits the evaluation of solid viscera and vasculature. Exam quality further reduced by body habitus and decreased vjasii-hw-islyz ratio. Lower chest: Trace bilateral pleural effusions. Small left lower lobe calcified granuloma. Normal cardiac size without pericardial effusion. Partially visualized annular mitral valve calcification. Liver: Diffuse hypoattenuation consistent with hepatic steatosis. No gross lesion. Bile ducts: Nondilated intra and extra hepatic biliary ducts. Gallbladder: Status post cholecystectomy. Surgical clips within the gallbladder fossa. Pancreas: Minimal pancreatic atrophy with fatty infiltration. No pancreatic ductal dilation. Spleen: Normal size. Adrenals: Normal. Right kidney/ureter: No collecting system dilation. No renal calculi. Possible punctate 2 mm calculus in the right mid ureter on series 4 image 511. No ureterectasis. No gross renal lesion. Left kidney/ureter: No collecting system dilation. No renal calculus. No gross renal lesion. Urinary Bladder: No gross abnormality, limited assessment. No bladder or proximal urethral calculi. Vasculature: No abdominal aortic aneurysm. Lymph Nodes: Mildly enlarged periportal lymph node measuring 1.1 cm in short axis on series 3 image 46, nonspecific. Borderline enlarged distal external iliac chain/pelvic sidewall nodes measuring 1.1 cm in short axis and prominent bilateral inguinal lymph nodes, likely normal or mildly reactive. Bowel: Nondilated, no wall thickening. ?? Peritoneum and retroperitoneum: No free fluid or loculated fluid collection. No pneumoperitoneum. No mesenteric inflammation. Abdominal wall: Partially excluded from the qayul-ek-gkac due to body habitus. No appreciable abdominal wall hernia where visualized. Reproductive organs: Normal contours. Osseous structures: No fracture or suspicious appearing osseous lesion. Small benign-appearing lucent lesion with sclerotic rim in the posterior medial right iliac bone has nonaggressive features. Multilevel spondylosis. Procedure Note Erich Ordonez MD - 12/24/2023 EXAMINATION: CT ABDOMEN AND PELVIS WO CONTRAST CLINICAL HISTORY: Blood in urine, hematuria unspecified Blood in urine, hematuria unspecified R31.9, Hematuria, unspecified TECHNIQUE: Helical CT of the abdomen and pelvis without intravenouscontrast. Oral contrast was not administered. Multiplanar reformatted images were generated. COMPARISON: None FINDINGS: The absence of intravenous contrast limits the evaluation of solid visceraand vasculature. Exam quality further reduced by body habitus and decreased ehlxgc-vg-qazpq ratio. Lower chest: Trace bilateral pleural effusions. Small left lower lobecalcified granuloma. Normal cardiac size without pericardial effusion. Partially visualized annular mitral valve calcification. Liver: Diffuse hypoattenuation consistent with hepatic steatosis. Nogross lesion. Bile ducts: Nondilated intra and extra hepatic biliary ducts. Gallbladder: Status post cholecystectomy. Surgical clips within thegallbladder fossa. Pancreas: Minimal pancreatic atrophy with fatty infiltration. Nopancreatic ductal dilation. Spleen: Normal size. Adrenals: Normal. Right kidney/ureter: No collecting system dilation. No renal calculi.Possible punctate 2 mm calculus in the right mid ureter on series 4 image 511. No ureterectasis. No gross renal lesion. Left kidney/ureter: No collecting system dilation. No renal calculus. Nogross renal lesion. Urinary Bladder: No gross abnormality, limited assessment. No bladder or proximal urethral calculi. Vasculature: No abdominal aortic aneurysm. Lymph Nodes: Mildly enlarged periportal lymph node measuring 1.1 cm inshort axis on series 3 image 46, nonspecific. Borderline enlarged distalexternal iliac chain/pelvic sidewall nodes measuring 1.1 cm in short axis andprominent bilateral inguinal lymph nodes, likely normal or mildly reactive. Bowel: Nondilated, no wall thickening. Peritoneum and retroperitoneum: No free fluid or loculated fluidcollection. No pneumoperitoneum. No mesenteric inflammation. Abdominal wall: Partially excluded from the ybwjm-ud-okwb due to bodyhabitus. No appreciable abdominal wall hernia where visualized. Reproductive organs: Normal contours. Osseous structures: No fracture or suspicious appearing osseous lesion.Small benign-appearing lucent lesion with sclerotic rim in the posterior medialright iliac bone has nonaggressive features. Multilevel spondylosis. IMPRESSION 1. Possible punctate 2 mm nonobstructing right mid ureteral calculus. Noother radiodense urinary tract calculi. 2. Hepatic steatosis. I have personally reviewed the image(s) and the resident's interpretationand agree with the findings, Erich Ordonez MD at 12/24/2023 4:31 PM Thank you for letting us participate in the care of this patient. If youare a health care provider and have any questions regarding this report,please contact the number below. For patients who have questions please contactthe health manager medicare that requested your imaging first. Amira DENNIS IMPili CT ORDERABLES documented in this encounter Visit Diagnoses Diagnosis Hematuria, unspecified type documented in this encounter Care Teams Film Projector Operator Relationship Specialty Start Date End Date Amira Hooks PA [address] [place] [address] PCP - General Family Medicine 07/25/22 documented as of this encounter
--- OUTSIDE RECORDS SUMMARY | 2024-06-04 20:42 | XMS_ITS | Encounter Summary ---
Author Organization [facility] [place] [address] Care Team Providers Care Managing Jeweler Name Role Phone Amira Hooks Primary Care Provider [phone] Encounter Details Date Type Department Care Team (Latest Contact Info) Description 03/13/2023 Travel Social History Tobacco Use Types Packs/Day [...] 2:00 PM EDT Office [place] [phone] Joan Castro MD [facility] [place] [address] 06/11/2024 1:03 PM EDT Hospital Encounter [place] [phone] Rachel Carrasco MD [facility] UROLOGY [place] [id number] 06/11/2024 1:03 PM EDT - 06/11/2024 1:58 PM EDT Surgery [place] [address] Rachel Carrasco MD [facility] [place] [address] CYSTO, REMOVAL OF STENT, FOREIGN BODY OR CALCULUS, SIMPLE (WRVU 2.81) 06/23/2024 10:00 AM EDT Office Visit Cardiology at [address] [place] [address] Mo Horne MD [facility] [place] [address] Scheduled Procedures Name Priority Associated Diagnoses Date/Ti me CYSTO, REMOVAL OF STENT, FOR EIGN BODY OR CALCULUS, SIMPLE (WRVU 2.81) NEPHROLITHIASIS 06/11/2024 1:03 PM EDT documented as of this encounter Visit Diagnoses Not on filedocumented in this encounter Care Teams Managing Jeweler Relationship Specialty Start Date End Date Amira Hooks PA [address] [address] PCP - General Family Medicine 07/25/22 documented as of this encounter
--- OUTSIDE RECORDS SUMMARY | 2024-06-04 20:42 | XMS_ITS | Encounter Summary ---
Author Organization [facility] [place] [address] Care Team Providers Care Weathercaster Name Role Phone Amira Hooks Primary Care Provider Encounter Details Date Type Department Care Team (Latest Contact Info) Description 12/16/2022 Travel Social History Tobacco Use Types Packs/Day [...] 2:00 PM EDT Office [place] [address] Joan Castro MD [facility] [place] [address] 06/11/2024 1:03 PM EDT Hospital Encounter [place] [address] Rachel Carrasco MD [facility] [place] [address] 06/11/2024 1:03 PM EDT - 06/11/2024 1:58 PM EDT Surgery [place] [address] Rachel Carrasco MD [facility] [place] [address] CYSTO, REMOVAL OF STENT, FOREIGN BODY OR CALCULUS, SIMPLE (WRVU 2.81) 06/23/2024 10:00 AM EDT Office Visit Cardiology at [address] [address] Mo Horne MD [facility] [place] [address] Scheduled Procedures Name Priority Associated Diagnoses Date/Ti me CYSTO, REMOVAL OF STENT, FOR EIGN BODY OR CALCULUS, SIMPLE (WRVU 2.81) NEPHROLITHIASIS 06/11/2024 1:03 PM EDT documented as of this encounter Visit Diagnoses Not on filedocumented in this encounter Care Teams Weathercaster Relationship Specialty Start Date End Date Amira Hooks PA [address] [address] PCP - General Family Medicine 07/25/22 documented as of this encounter
--- OUTSIDE RECORDS SUMMARY | 2024-06-04 20:42 | XMS_ITS | Encounter Summary ---
[place] [address] Care Team Providers Care Family And Consumer Education Teacher Name Role Phone Amira Hooks Primary Care Provider [phone] Reason for Referral * Consultation (Routine) - Closed Specialty Diagnoses / Procedures Referred By Zeyad t Referred To Contact Gastroenterology Diagnoses Constipation, unspecified constipation type Gastroesophageal reflux disease, unspecified whether esophagitis present motility- constipation (former magalys pt ) Amira Hooks PA [address] [place] [address] [facility] [place] [address] Referral ID Status Reason Start Date Expiration Date V isits Requested Visits Authorized [id number] Closed Consult, Test & Treat PCP Updated and/or Approved 04/20/2023 04/19/2024 6 6 Encounter Details Date Type Department Care Team (Latest Contact Info) Description 04/20/2023 Transcribe Orders eDH Incoming Referrals [phone] Amira Hooks PA [address] [place] [address] Constipation, unspecified constipation type; Gastroesophageal reflux disease, unspecified whether esophagitis present Social History Tobacco Use Types Packs/Day Years Used Date Smoking Tobacco: Former Cigarettes 1.5 15 1 995 - 2009 Smokeless Tobacco: Former Chew Quit: 2013 Alcohol Use Standard Drinks/Week Comments No 0 (1 standard drink = 0.6 oz pur e alcohol) [facility] Inpatient Questions Answer Date Recorded Does [...] 2:00 PM EDT Office [place] [address] [facility] [place] [address] 06/11/2024 1:03 PM EDT Hospital Encounter [place] [phone] [facility] [place] [address] 06/11/2024 1:03 PM EDT - 06/11/2024 1:58 PM EDT Surgery [place] [phone] [facility] [place] [address] CYSTO, REMOVAL OF STENT, FOREIGN BODY OR CALCULUS, SIMPLE (WRVU 2.81) 06/23/2024 10:00 AM EDT Office Visit Cardiology at [address] [address] [facility] [place] [address] Scheduled Procedures Name Priority Associated Diagnoses Date/Ti me CYSTO, REMOVAL OF STENT, FOR EIGN BODY OR CALCULUS, SIMPLE (WRVU 2.81) NEPHROLITHIASIS 06/11/2024 1:03 PM EDT Scheduled Referrals Name Type Priority Associated Diagnoses Order Schedule Referral to Gastroenterology Outpatient Referral Routine Constipation, unspecified constipation type Gastroesophageal reflux disease, unspecified whether esophagitis present Ordered: 04/20/2023 documented as of this encounter Visit Diagnoses Diagnosis Constipation, unspecified constipation type Gastroesophageal reflux disease, unspecified whether esophagitis present documented in this encounter Care Teams Family And Consumer Education Teacher Relationship Specialty Start Date End Date Amira Hooks PA [address] [place] [id number] PCP - General Family Medicine 07/25/22 documented as of this encounter
--- OUTSIDE RECORDS SUMMARY | 2024-06-04 20:42 | XMS_ITS | Encounter Summary ---
Author Organization [facility] Address [facility] [place] [address] Care Team Providers Care Machine Stripper Cutter Name Role Phone Amira Hooks Primary Care Provider Reason for Visit * Psychiatric (Routine) - Closed Specialty Diagnoses / Procedures Referred By Contac t Referred To Contact Psychiatry Diagnoses Bipolar affective disorder, remission status unspecified Panic disorder Depression with anxiety Coty Barr APRN [address] [place] [address] Bin Hughes, PhD [facility] [place] [address] Referral ID Status Reason Start Date Expiration Date V isits Requested Visits Authorized [id number] Closed Consult, Test & Treat PCP Updated and/or Approved 07/25/2022 07/25/2023 6 6 Encounter Details Date Type Department Care Team (Late st Contact Info) Description 12/16/2022 1:00 PM EST Office Visit Psychiatry and [place] [phone] Joana Mabry, PhD [facility] [place] [address] Post-traumatic stress disorder, unspecified Social History Tobacco [...] Progress Notes * Joana Mabry, PhD - 12/16/2022 1:00 PM EST DIAGNOSTIC INTERVIEW CPT Code 62381 Referral Source: Coty Barr APRN Location: Office Attendees: Patient and family member Presenting Complaint: Rolo Aguilar is a 51 y.o. male who presented with a primary complaint of not sleeping because of really bad nightmares. History and Symptoms of Presenting Illness: Mr. Aguilar reported that he has a history of heart problems, including a heart attack in 2016 and 2 heart ablation procedures since this time (the last one approximately 1 year ago.) He reported that particularly during the second ablation he couldn'tget away from the pain, despite being given several different pain medications. Mr. Aguilar reported that he has nightmares most nights of the week where he dreams he is back in the hospital and wakes up feeling as though he is back in the hospital. He stated that every time his heart flutters or acts weird, he goes into a panic. He reports avoiding reminders of the hospital and tries to avoid thinking about his experience. He reports that changes since his heart attack and heart ablations include worrying a lot, not sleeping, negative mood, and getting snappy, irritated, or depressed. He also reported that he and his specifically rearranged their living room so that it was different from when he had his heart attack, and that he avoids medical shows on television or similar content that reminds him of what happened. He reports especially having trouble going to sleep on Friday nights because he had his heart attack on a Friday morning, and that he will stay up very late on Friday nights until he's too tired to stay awake (usually around 3am.) Mr. Aguilar reported that he is not currently experiencing depressed mood, but that he has in thepast. He reported that the last time he had an episode of depressed mood was approximately 2 years ago. He reported a history of periods of elevated mood during which he acted out of character. He and his reported that he is normally very conscientious, but during the last period of elevated mood he said upsetting things that were out of character and engaged in risky driving behavior. He reported that last period like this was 4-5 years ago, as well as before he was put on medications forbipolar disorder many years ago. Mr. Aguilar reports a history of panic attacks which include shortness of breath, sweating, feeling shaking, and muscle tension. He reported that these attacks are usually triggered by sensations of his heart fluttering, but occasionally come out of the blue, and peak within approximately 5 minutes. He reports worrying that he is having a heart attack while the episode is happening, but denies continued worry about having another panic attack. Mr. Aguilar denied social anxiety. He reports frequent worry about everything. Examples included worrying that he won't do a tattoo correctly, worrying about his car stopping correctly, or worrying about his mother. He reported that some days he worries a lot, and other days not that much, espec ially if he's busy. He reported that his worrying used to be worse, but that it has been helped a lot by meditation. However, he reports that it has been harder to focus on mediation as well as he used to with the anxiety related to his heart. He also reported some past checking behaviors (e.g., checking locks) and currently needing to have his toothbrush set in its gonzalez just right; however, he denies that these are very distressing or time-consuming. Past Psychiatric history and treatment: Prior diagnoses: Mr. Aguilar reported past diagnoses of bipolar II, obsessive- compulsive disorder, and anxiety. He also reported that doctors have told him he has PTSD related to these past experiences with his heart. History of shannan: Mr. Aguilar reported a history of hypomania and past diagnosis of bipolar II disorder; he reported that his last hypomanic episode was approximately 4-5 years ago. Prior psychiatric hospitalizations: Denied Prior outpatient treatment: Me. Aguilar reported previously taking a meditation class which he found very helpful. Prior suicide attempts or self-harm: Mr. Aguilar denied current suicidal ideation, plan, and intent (It's the last thing on my mind). He reported one near suicide attempt approximately 30 years ago, when he made a plan to kill himself with a gun. However, his significant other talked him out ofit. He reported that this happened before being diagnosed with bipolar disorder and before startingon medications, and that nothing like this has happened since. Prior violence or legal issues: Denied Prior ECT/TMS: Not assessed Prior medications trials: Patient reports currently taking clonazepam as prescribed, but is seekingtherapy because he does not want additional medications. Substance Use History: Mr. Aguilar denied drinking alcohol. He stated that he tried it a few times, but that he found he didn't get drunk even if he had a large amount. He also denied drug use including marijuana. He also reported that when he had tried marijuana in the past it not have an impact. Family of Origin and Developmental History: Mr. Aguilar lives with his . Family History of Psychiatric Problems: Not assessed. 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 He reported attendingschool until his senior year of high school and reports that his favorite subjects in school were generally creative/artistically focused classes. Family and Peer Relationships: Mr. Aguilar reported having a supportive spouse. Service: Denied Hoahaoism Background: Mr. Aguilar reported that he considers himself spiritual, but not sabianist. Medical history: Past Medical History: Diagnosis Date ??? A-fib ??? Anxiety ??? Arthritis ??? CAD (coronary artery disease) ??? Depression ??? Flutter-fibrillation ??? GERD (gastroesophageal reflux disease) ??? Hepatitis ??? HLD (hyperlipidemia) ??? Hypertension ??? Seizure Trauma History: See History of Presenting Problem above. Mental Status Exam: Musculoskeletal System: Not assessed Mental Status Exam: Appearance: age appropriate Behavior: cooperative with the interview and good eye contact Speech: normal pitch, normal volume, normal rate and normal rhythm Language: fluent in british Mood: euthymic Affect: mood-congruent Thought Process: linear and logical Associations: intact Thought Content: denied homicidal ideation and denied suicidal ideation Perception: denied auditory hallucinations denied visual hallucinations; Mr. Aguilar reported onepast incident of seeing a cat in his bathroom for a few seconds when they do not have a cat; he reported seeing this out of the corner of his eye and was not sure of what he saw and said it could have been his eyes playing tricks on him. Orientation: grossly intact by interview Attention/Concentration: able to sustain focus Cognition: grossly intact by interview Memory: recent and remote memory grossly intact Fund of Knowledge: appropriate for age and level of functioning Insight: good Judgment: good Patient-reported Psychiatry Initial scores and responses: VR12 VR12 Patient Reported Responses 06/04/2019 Health in general Good Moderate activity No, not limited at all Climb several flights No, not limited at all Accomplished less No, none of the time Accomplished less-emotional problems Yes, a little of the time Did work less carefully Yes, a little of the time Pain impact Not at all Jay calm Most of the time Lot of energy Some of the time Jay downhearted Some of the time Social Impact Some of the time VR12 - Physical Component Summary 56.58 VR12 - Mental Component Summary 40.4 AUDIT AUDIT Patient Reported Responses 12/16/2022 Drinking frequency Never PHQ9 MYD-H PHQ-9 RESPONSES 12/16/2022 Little interest or pleasure Several days Down, depressed, hopeless Several days Trouble sleeping More than half the days Tired or no energy Several days Poor appetite or overeating Not at all Feeling like a failure Several days Trouble concentrating (newspaper) Several days Moving or speaking slowly Several days Would be better off Not at all Phq9 Impairment Somewhat difficult PHQ-9 Score 8 (Mild Depression) GAD7 ANGELO-7 Patient Reported Responses 12/16/2022 Nervous, anxious (Patient) Several days Unable to stop worrying (Patient) Several days Worrying about different things (Patient) More than half the days Trouble relaxing (Patient) More than half the days Restless (Patient) Several days Easily annoyed, irritable (Patient) Several days Afraid something awful will happen (Patient) More than half the days Difficulty (Patient) Somewhat difficult ANGELO-7 Score (Patient) 10 (Moderate Anxiety) ANGELO-7 Score (Patient) - PTSD: PTSD Patient Reported Responses 12/16/2022 Experienced traumatic event Yes Nightmares / intrusive thoughts Yes Avoided remembering Yes On guard / alert Yes Numb / detached No Jay guilty or blamed yourself or others No PTSD Score 3 (Probable PTSD) Summary Assessment: The patient is a 52-year-old male reporting distress due to nightmares and avoidance related to past heart problems, including heart attack and heart ablations, consistent with a diagnosis of post-traumatic stress disorder. He reports a history of panic attacks which are usually(though not always) triggered and associated worry about having a heart problem, but denies on-going worry about having another panic attack. He reports a history of bipolar disorder, which is broadly consistent with information provided as part of this evaluation focused on assessment for anxiety disorders. He denies current depression or shannan, as well as significant symptoms of social anxiety o r OCD. He reports frequent worry, but this appears to be relatively well managed through meditation, and does not appear to rise to a clinically interfering level at this time. Risk Assessment: Mr. Aguilar denied current suicidal ideation, plan, and intent (It's the last thing on my mind). He reported one near suicide attempt approximately 30 years ago, when he made a plan to kill himself with a gun. However, his significant other talked him out of it. He reported that this happened before being diagnosed with bipolar disorder and before starting on medications, andthat nothing like this has happened since. Based on his current denial of SI/plan/intent, the length of time since past suicidal gestures, and patient's report of symptoms being well-managed since starting on psychiatric medications, his risk is judged to be low at this time. DSM-5 Diagnoses: Post-traumatic stress disorder Bipolar II disorder (by history) Initial Treatment Plan: We discussed and agreed that I will look into potential options for PTSD treatment and will follow up with the patient by phone to discuss. Measurement based recommendation for ADS screening: No recommendation. Manual review of chart is recommended for treatment in the Anxiety Disorders Service at [facility]. Does the clinician agree with the recommendation: Yes (see initial plan, above) Does the patient agree with the recommendation: Yes (see initial plan, above) Patient Instruction/Education Provided: Verbal Patient understands the plan? Yes We discussed that I am available via [employer], but that I do not check this daily, and should not be used in case of emergency. We have reviewed crisis numbers to call in case of emergency. We discussed limits to confidentiality, which include breaking confidentiality in the case of concern for imminent danger to self, someone else (including child and elder abuse) or if records are subpoenaed by a journeyman meat cutter. We also discussed that notes can be read by other clinicians and staff involved in the patient's care. For mental health emergencies, Call 988 from anywhere in the [facility]. State specific information for [place] and [place] crisis services are as follows and should be used to access local resources: [facility] Crisis Line text or call Visit www.[employer]ane for further information [place] Call your local community crisis line at: [place]: Counseling Service [facility] [phone] [place]: [facility] [phone] [place]: [facility] [phone] [place]: [facility] [phone] [place]: [facility] [phone] [place]: [facility] Counseling and Support [phone] [place]: [facility] Mental [facility] [phone] on weekdays 8AM-4:30PM and [phone] on nights and weekends [place]: [facility] [place]: [facility] [phone] [place]: [facility] Services [phone] [place]: [facility] MH Services, [place]: H[facility]S [place]: HCRS or Text [place] to 693447 For further information for [place] residents: https://mentalhealth.[place].[facility]/services/emergency-services/euw-jmh-fcgq National Suicide Prevention Hotline: For patients cared for in the Department of Psychiatry, you can reach your mental health clinician at [phone]. Joana Mabry, PhD documented in this encounter Plan of Treatment Upcoming Encounters Date Type Department Care Team (Latest Contact Info) Description 06/07/2024 2:00 PM EDT Office Visit [place] [phone] Joan Castro MD [facility] [place] [address] 06/11/2024 1:03 PM EDT Hospital Encounter [place] [address] Rachel Carrasco MD [facility] [place] [address] 06/11/2024 1:03 PM EDT - 06/11/2024 1:58 PM EDT Surgery [place] [phone] Rachel Carrasco MD [facility] [place] [address] CYSTO, REMOVAL OF STENT, FOREIGN BODY OR CALCULUS, SIMPLE (WRVU 2.81) 06/23/2024 10:00 AM EDT Office Visit Cardiology at [address] [place] [phone] Mo Horne MD [facility] [place] [address] Scheduled Procedures Name Priority Associated [...] unspecified documented in this encounter Care Teams Machine Stripper Cutter Relationship Specialty Start Date End Date Amira Hooks PA [address] [place] [id number] PCP - General Family Medicine 07/25/22 documented as of this encounter
--- OUTSIDE RECORDS SUMMARY | 2024-06-04 20:43 | XMS_ITS | Encounter Summary ---
Author Organization [facility] Address [facility] [place] [address] Care Team Providers Care Fitting Room Inspector Name Role Phone Bin Bowman MD Primary Care Provider Reason for Visit * Reason Comments Tachycardia Shortness of Breath * Auth/Cert Specialty Diagnoses / Procedures Referred By Zeyad mishra Referred To Contact Diagnoses Atrial flutter Procedures EMERGENCY IPI Referral ID Status Reason Start Date Expiration Date Visits Re quested Visits Authorized [id number] 1 1 Encounter Details Date Type Department Care Team (Latest Contact Info) Description 02/14/2021 1:46 PM EDT - 02/17/2021 3:55 PM EDT Hospital Encounter [place] [address] Aileen Francis DO [facility] [place] [address] Nathen Figueroa MD [facility] [place] [address] Nilsa Goldstein MD [facility] [place] [address] Ivy Hurd MD [facility] [place] [address] Atrial flutter (Primary Dx); PAF (paroxysmal atrial fibrillation) Discharge Disposition: Home [...] Sign Reading Time Taken Comments Blood Pressure 115/85 02/17/2021 11:23 AM EDT Pulse 65 02/17/2021 11:23 AM EDT Temperature 36.6 ??C (97.9 ??F) 02/17/2021 1 1:23 AM EDT Respiratory Rate 14 02/17/2021 11:2 3 AM EDT Oxygen Saturation 99% 02/17/2021 11: 23 AM EDT Inhaled Oxygen Concentration - - Weight 179.3 kg (395 lb 4.6 oz) 02/17/2021 6:06 AM EDT Height - - Body Mass Index 63.8 02/05/2021 2:23 PM EDT documented in this encounter Discharge Summaries * Fadi Escobar MD - 02/17/2021 2:05 PM EDT Cardiac Electrophysiology Discharge Summary Patient Name: Rolo Aguilar Patient Age: 50 y.o. Language: Scottish Race: White Ethnicity: Not nor Admit date: 02/14/2021 Discharge date and time: 02/17/21 Attending Physician: Nilsa Goldstein MD Discharge Physician: Fadi Escobar MD Follow-up Recommendations for Providers: Mr. Aguilar [place] [facility] [place] in atrial fibrillation with RVR. He was then admitted for evaluation and management of symptomatic atrial fibrillation. He is being discharged in sinus rhythm on amiodarone 400 mg bid, which will decrease to 400 mg QD in one week. Mr Aguilar is anticoagulated on Apixaban 5 mg BID. Inpatient Provider Contact Information: Cardiac Electrophysiology - Weekends and holidays call [phone]; ask for financial services technician sales correspondent. Discharge Diagnoses (Hospital Problems) and Secondary Diagnoses (Chronic Problems): Active Hospital Problems Diagnosis ??? Atrial flutter ??? Bipolar disorder ??? Coronary disease ??? Heart palpitations ??? Obesity Active Non-Hospital Problems Diagnosis ??? SVT (supraventricular tachycardia) ??? PAF (paroxysmal atrial fibrillation) ??? Flutter-fibrillation ??? H/O cardiac radiofrequency ablation ??? Essential hypertension Procedure(s): None Other Major Procedures: None History of Presentation: 50 y.o. male with a history of atrial flutter s/p CTI ablation in July 2020,??atrial fibrillation s/p PVI and posterior LA wall isolation on 01/10/21, anticoagulated with Eliquis,??ASCVD (s/p NSTEMI, EMMY to OM1 in 07/2017), HTN, sleep apnea, RICARDO, and obesity,, who was admitted for evaluation andmanagement of symptomatic atrial fibrillation.. Hospital Course: Re-loaded with amiodarone IV Switched to oral amiodarone (400mg po BID) on 02/16 Converted to sinus rhythm vs. junctional rhythm in the 70s with subjective improvement to breathing Will discharge home on Amiodarone 400 mg BID Vital Signs at Discharge: BP: 115/85, Heart Rate: 65, Temp: 36.6 ??C (97.9 ??F), Resp: 14, Weight: (!) 179.3 kg (395 lb 4.6 oz) (02/17/21 0606) Functional and Cognitive Status: Stable Admission Diagnoses: Atrial flutter [I48.92] Discharge Diagnoses: Atrial flutter [I48.92] Admission Condition: fair Indication for Admission: Medical necessity/monitoring post-procedure Consults: none Important Studies and Lab Data: Lab Results Component Value Date WBC 9.7 (H) 02/15/2021 HGB 13.4 (L) 02/15/2021 HCT 42.0 02/15/2021 PLATELET 353 02/15/2021 No results for input(s): INR in the last 168 hours. Lab Results Component Value Date NA 138 02/17/2021 K 3.6 02/17/2021 CL 102 02/17/2021 BUN 13 02/15/2021 CREATININE 1.08 02/15/2021 MAGNESIUM 0.81 02/15/2021 Treatments: IV Amiodarone load Discharge Exam: Please see physical exam in day of discharge progress note. No changes. Discharge Conditions/Prognosis: good Discharge to: home Updated Allergies/ADRs: Allergen Reactions ??? Adenosine Palpitations tachycardia ??? Gabapentin ??? Wellbutrin [Bupropion Hcl] ??? Zoloft [Sertraline] Discharge Medications: STOPPED Medications HYDROmorphone 2 mg Tab Commonly known as: Dilaudid UNREVIEWED medications - Discuss With Your Provider Dose Details acetaminophen 325 mg Tab Commonly known as: Tylenol Take 2 tablets by mouth every 6 hours as needed for Pain. 650 mg Quantity: 30 tablet Refills: 1 AMIOdarone 400 mg Tab Commonly known as: PACERONE Take 1 tablet by mouth 2 times daily. 400 mg Quantity: 60 tablet Refills: 1 apixaban 5 mg Tab Commonly known as: Eliquis Take 1 tablet by mouth 2 times daily. 5 mg Quantity: 60 tablet Refills: 3 aspirin EC 81 mg Tbec Take 1 tablet by mouth daily. 81 mg Quantity: 30 tablet Refills: 3 atorvastatin 20 mg Tab Commonly known as: Lipitor Take 1 tablet by mouth every evening. 20 mg Quantity: 90 tablet Refills: 3 clindamycin 1 % Gel Commonly known as: CLINDAGEL APPLY TOPICALLY TO AFFECTED AREA TWICE DAILY Quantity: 30 g Refills: 1 clonazePAM 1 mg Tab Commonly known as: KlonoPIN Take 1 mg by mouth 2 times daily as needed for Anxiety. 1 mg Refills: 0 colchicine 0.6 mg Tab Commonly known as: Colcrys Take 1 tablet by mouth daily for 87 days. 0.6 mg Quantity: 87 tablet Refills: 0 furosemide 20 mg Tab Commonly known as: Lasix Take 1 tablet by mouth daily. 20 mg Quantity: 30 tablet Refills: 0 lamoTRIgine 100 mg Tab Commonly known as: LaMICtal Take 1 tablet by mouth daily. 100 mg Quantity: 30 tablet Refills: 12 lisinopriL 2.5 mg Tab Commonly known as: Prinivil;Zestril Take 1 tablet by mouth daily. 2.5 mg Quantity: 90 tablet Refills: 3 loperamide 2 mg Cap Commonly known as: Imodium A-D Take 2 capsules by mouth 4 times daily as needed for Diarrhea. 4 mg Quantity: 30 tablet Refills: 0 metoprolol succinate XL 50 mg Tablet sr Commonly known as: Toprol-XL Take 150 mg by mouth daily. 150 mg Refills: 0 nitroGLYcerin 0.4 mg Subl Commonly known as: Nitrostat DISSOLVE 1 UNDER TONGUE NEEDED Refills: 4 pantoprazole EC 40 mg Tbec Commonly known as: Protonix Take 1 tablet by mouth 2 times daily. 40 mg Quantity: 180 tablet Refills: 3 Smoking Status at Discharge: Tobacco Use Smoking Status Former Smoker ??? Packs/day: 1.50 ??? Years: 15.00 ??? Pack years: 22.50 ??? Types: Cigarettes ??? Quit date: 2013 ??? Years since quittin.2 Smokeless Tobacco Former User ??? Types: Chew Instructions Given to Patient at Discharge: General Instructions - Amiodarone 400 mg twice daily for one week, then decrease to 400 mg once daily. - Toprol 100 mg twice daily - Return to clinic next week for Ziopatch - will be scheduled - Follow up with Dr Escobar per appointment below Future Appointments and Orders Future Appointments and Orders Future Appointments Provider Department Dept Phone 03/19/2021 3:20 PM Fadi Escobar MD [place] [facility] [place]rive at: [place] [facility] [phone] Cardiac Electrophysiology Attending This patient was seen and evaluated during the morning of February 17; I also called to check on himApril , and to reiterate the medication plans (reduce amiodarone from 400 mg twice daily to 400mg daily as of Friday, February 24; he remain on metoprolol succinate 100 mg twice daily). He has plans to see Dr. Culver on February 27, and I'll plan to see him again in early-mid March to review results of a Zio monitor. Mr. Aguilar's pulse is 65/minute this AM (February 18), and he feels well. documented in this encounter Medications at Time of Discharge Medication Sig Dispensed Refills Start Date End Date furosemide (Lasix) 20 mg Tablet Take 1 [...] 3 times daily as needed for Anxiety. metoprolol succinate XL (Toprol XL) 100 mg Tablet Sustained Release 24 hr Take 1 tablet by mouth 2 times daily. 180 tablet 3 02/17/2021 03/19/2021 AMIOdarone (PACERONE) 400 mg TabletIndications:Flutt er-fibrillation Take 1 tablet by mouth 2 times daily. 60 tablet 1 02/13/2021 03/14/2021 atorvastatin (Lipitor) 20 mg Tablet Take 1 tablet by mouth every evening. 90 tablet 3 02/12/2021 05/08/2021 colchicine (Colcrys) 0.6 mg Tablet Take 1 tablet by mouth daily for 87 days. 87 tablet 01/14/2021 02/27/2021 loperamide (Imodium A-D) 2 mg Capsule Take 2 capsules by mouth 4 times daily as needed for Diarrhea. 30 tablet 01/13/2021 08/06/2022 apixaban (Eliquis) 5 mg Tablet Take 1 tablet by mouth 2 times daily. 60 tablet 3 12/19/2020 04/27/2021 pantoprazole (PROTONIX) 40 mg Tablet, Delayed Release (E.C.) Take 1 tablet by mouth 2 times daily. 180 tablet 3 03/25/2019 03/19/2021 documented as of this encounter Progress Notes * Autumn Cotter RN - 02/17/2021 3:39 PM EDT Pt dc'd off telemetry, IV's removed intact. Pt stated an understanding of discharge instructions, follow up appointments, medications, and activity tolerance. Pt dc'd to home with no services * Fadi Escobar MD - 02/17/2021 1:14 PM EDT Cardiac Electrophysiology Attending This patient was seen and evaluated, and reviewed with Dr. Kahn. I had an extended discussion with reviewing his rhythm status and observations over the past year, and in particular discussed acute findings and results from his procedure last month. He had a pericardial effusion post-procedure that was drained, and also developed some pericarditis that was terated. Unfortunately he also went on to have recurrent sustained atrial tachycardia/flutter, with a difficult to control ventricular rate, although ultimately the rate wsas brought under control subsequent to his admission here several days ago. He was given intravenous amiodarone, and by yesterday morning, in addition to improved ve ntricular rate control, he reverted to sinus rhythm. He has fe;lt much better in sinus rhythm. The fact thay he reverted to sinus rhythm in sinus rhythm is encouraging, and suggests that his chances of remaining in sinus rhythm on amiodarone are improved; I advised that we continue amiodarone 400 mg twice daily for another week, and then reduce the amiodarone to 400 mg daily until I see him again at the end of March (also with metoprolol succinate 100 mg twice daily). I encouraged him to be up and around, but otherwise hopefully at this point he can better enjoy the spring. We discussed limitations of his left atrial procedure in early January I suspect that the flutter that he has had might be mitral annular flutter, and I discussed with him and his why that might be (it also yet instead could be a different atypical flutter or atrial tachycardia); I am not aware that he has had any further atrial fibrillation. In the short to intermediate term, it is reasonableto control this with amiodarone. In the longer term, however, amiodarone toxicity risks increase. Consequently, I also discussed alternatives with him, incluidng an eventual follow up procedure to elicit and map this flutter, and otherwise to complete bidirectional conduction block at the posteroolateral mitral isthmus, and to complete electrical isolation of the posterior left atrium (probable electrical continuity across the superior segment of the circumferential ablation trajectory). This is not urgent at this point, though otherwise it hasd been a contingency plan for next week if otherwi se his atrial tachycardia/flutter persisted. I answered ll of their questions, and albertowoisdidier anticipate that he can go home this afternoon if he continues to do well (discussed with Mr. Kahn). * Franco Kerns RN - 02/17/2021 4:44 AM EDT OUTCOME EVALUATION NOTE: OUTCOME SUMMARY: Patient's vitas stable. Tele: Remains in SR. Patient reports slept well. PLAN MOVING FORWARD: Team review in the day. * Rachana Almonte RN - 02/16/2021 5:43 PM EDT Patient in NSR upon start of shift. Patient ambulated in hallway with RN monitoring heart rate and rhythm. Patient continues to remain in NSR. No complaints of pain or shortness of breath. Plan D/C to home tomorrow. Will continue to monitor. * Nilsa Goldstein MD - 02/16/2021 8:04 AM EDT Cardiac Electrophysiology Progress Note Patient: Rolo Aguilar : 1970 Attending: Nilsa Goldstein MD Code Status: FULL Problem List: Patient Active Problem List Diagnosis ??? Atrial flutter ??? Bipolar disorder ??? SVT (supraventricular tachycardia) Overview Note: Added automatically from request for surgery [id number] ??? PAF (paroxysmal atrial fibrillation) Overview Note: Added automatically from request for surgery [id number] ??? Flutter-fibrillation ??? H/O cardiac radiofrequency ablation ??? Coronary disease Overview Note: ?? 2017: STEMI. PCI of OM1. EF 60%. Many ER visits to [facility] after this. ??? Heart palpitations ??? Obesity ??? Essential hypertension Brief HPI: 50 y.o. male male??with a history of atrial flutter s/p CTI ablation in July 2020, atrial fibrillation s/p PVI and posterior LA wall isolation on 01/10/21, anticoagulated with Eliquis, ASCVD (s/p NSTEMI, EMMY to OM1 in 07/2017), HTN, sleep apnea, RICARDO, and obesity, who is currently admitted for evaluation and management of recurrent atrial fibrillation. Mr. Aguilar underwent a PVI and posterior LA wall isolation on 01/10/21 complicated by hypotension requiring pressor support in setting of acute [id number] pericardial effusion for which a pericardiocentesis was performed and pericardial drain was placed with good effect. Mr. Aguilar also experienced pericarditis in setting of this pericardial effusion. He was prescribed colchicine 0.6mgpo daily x 3 months (01/11/21 - 04/13/21). On a post-discharge CXR and echo (01/22/21), he was noted to have a new pleural effusion, for which lasix 20mg po daily was initiated. On 01/31/21, patient underwent another echo and CXR with the following results reported: CXR from 01/31 shows small left & very small right pleural effusion. Echo shows trace pericardial effusion. At a 02/05/21 follow-up visit, Mr. Aguilar reported subjective improvements with respect to chest discomfort and shortness of breath, and denied recurrence of atrial fibrillation. However, on 02/12/21, he presented to an OSH in afib. He was cardioverted but reverted back to atrialfibrillation a few hours later. His amiodarone was increased and he was scheduled for an [facility] [facility] [place] this [place]. Given his progressive and intolerable symptoms, Mr. Aguilar presented to [facility] [place] on 02/14/21 in atrial fibrillation with RVR. He was then admitted for evaluation and management of symptomatic atrial fibrillation. Interval History: Re-loaded with amiodarone IV Switched to oral amiodarone (400mg po BID) on 02/16 Converted to sinus rhythm vs. junctional rhythm in the 70s with subjective improvement to breathing Acute ROS: Constitutional: - fatigue, - fever, - chills Respiratory: - shortness of breath, - cough, - apnea, - wheezing Cardiovascular: - chest pain, - palpitations, - unusual rates Gastrointestinal: - nausea, - vomiting, - abdominal pain, - diarrhea Neurological: - lightheadedness, - dizziness, - syncope, - weakness Psychiatric: - anxious Vitals: Last Set of Vitals and range of vitals over past 24 hours: Last value Range last 24 hrs Temperature Temp: 36.8 ??C (98.2 ??F) Temp: [36.7 ??C (98.1 ??F)-36.8 ??C (98.2 ??F)] Heart Rate Heart Rate: (!) 122 Heart Rate: [122-124] Blood Pressure BP: 117/76 BP: (117-139)/(76-87) Respiratory Rate Resp: 21 Resp: [21-23] SpO2 SpO2: 99 % SpO2: [97 %-99 %] Physical Exam: General- No acute distress, sitting comfortably in exam room chair HEENT- Head atraumatic, normocephalic Skin- Warm and dry Neck- No JVD noted Cardiovascular- S1/S2 regular rate and regular rhythm. Lungs- Unlabored respiratory effort on room air Neuro- A&Ox3 EKG - Likely SR at 70bpm with short CA of 106ms, QRS duration 100ms, QT 440ms, QTc 475ms Telemetry- SR vs junctional rhythm in the 60s-70s since ~0500 on 02/16 Laboratory (Last 24 Hours): Lab Results Component Value Date NA 141 02/16/2021 K 3.7 02/16/2021 CL 104 02/16/2021 BUN 13 02/15/2021 CREATININE 1.08 02/15/2021 MAGNESIUM 0.81 02/15/2021 Assessment: 50 y.o. male male??with a history of atrial flutter s/p CTI ablation in July 2020, atrial fibrillation s/p PVI and posterior LA wall isolation on 01/10/21, anticoagulated with Eliquis, ASCVD (s/p NSTEMI, EMMY to OM1 in 07/2017), HTN, sleep apnea, RICARDO, and obesity, who has converted to sinus rhythm with in the setting of re-loading amiodarone. He is tolerating beta-helen therapy of metoprolol tartrate 75mg po q8h. Today, we encouraged ambulation around the unit to assess symptoms /rates with exertion. His primary senior principal software engineer assumes the EP service tomorrow and will discuss future management (AAD vs. Repeat ablation vs. [id number]-pic-[id number] strategy). Plan: 1. Continue amiodarone 400mg po BID 2. Continue anticoagulation with Eliquis 3. Continue beta-helen as tolerated 4. Encourage ambulation today I appreciate the opportunity to be involved with Mr. Aguilar's care. Please do not hesitate to contact EP with any further questions (pager [phone]). SONNY Grover 02/16/2021 Pager: [phone] Addendum Converted to sinus rhythm overnight. He has noticed an improvement in his breathing and overall feels better. Will transition to oral amiodarone and see how he does in the next 24 hours. He has been asked to ambulate around the unit to see his heart rate response to mild exertion. Anticipate probable discharge to home tomorrow; contingency remains for a possible EPS/ablation next week (although he is not particularly keen on this idea) \ NILSA GOLDSTEIN MD * Nilsa Goldstein MD - 02/15/2021 2:00 PM EDT Inpatient EP Cardiology Progress Note Patient Name: Rolo Aguilar Responsible Attending: Nilsa Goldstein MD Reason for continued hospitalization: 1) Atrial flutter with rapid ventricular conduction 2) Amiodarone loading with possible cardioversion Active Problems: Active Hospital Problems Diagnosis ??? Atrial flutter ??? Bipolar disorder ??? Coronary disease ?? 2017: STEMI. PCI of OM1. EF 60%. Many ER visits to [facility] after this. ??? Heart palpitations ??? Obesity Resolved Hospital Problems No resolved problems to display. Interval History: Stable overnight, is aware of palpitations / tachycardia, but generally only with heart rate > 130bpm Review of Systems: Review of Systems Telemetry: HR: atrial flutter with apparent 2:1 conduction Meds: Scheduled Meds: ??? lamoTRIgine 100 mg Oral Nightly ??? lidocaine 1 patch Transdermal Q24H And ??? lidocaine 1 patch Transdermal Q24H ??? apixaban 5 mg Oral BID ??? sodium chloride 0.9 % (flush) 5 mL Intravenous BID ??? aspirin EC 81 mg Oral Daily ??? atorvastatin 20 mg Oral QPM ??? colchicine 0.6 mg Oral Daily ??? furosemide 20 mg Oral Daily ??? metoprolol tartrate 50 mg Oral Q8H VANESA ??? pantoprazole EC 40 mg Oral Daily Continuous Infusions: ??? AMIOdarone 0.5 mg/min (02/15/21 0852) PRN Meds:acetaminophen, sodium chloride 0.9 % (flush), lidocaine, nitroGLYcerin, clonazePAM, loperamide Physical Exam: Vital Signs: Last value Range last 24 hrs Temperature Temp: 36.7 ??C (98.1 ??F) Temp: [36.6 ??C (97.9 ??F)-36.7 ??C (98.1 ??F)] Heart Rate Heart Rate: (!) 124 Heart Rate: [105-129] Blood Pressure BP: 139/87 BP: (92-144)/(67-113) Respiratory Rate Resp: 23 Resp: [12-26] SpO2 SpO2: 97 % SpO2: [91 %-99 %] Physical Exam Constitutional: He is oriented to person, place, and time. He appears well-developed. Body mass index is 62.91 kg/m??. Cardiovascular: tachy Neurological: He is alert and oriented to person, place, and time. Skin: Skin is warm and dry. Multiple tattoos Lab Comments: Recent Labs 02/15/2110402/14/21 1413 WBC 9.7* 11.8* HGB 13.4* 14.0 HCT 42.0 43.2 PLATELET 353 375* No results for input(s): INR in the last 168 hours. Recent Labs 02/15/2110402/14/21 1413 NA 143 138 K 4.0 3.9 CL 104 101 CO2 27 25 BUN 13 13 CREATININE 1.08 1.09 No results for input(s): AST, ALT, ALKPHOS, BILITOT, BILIDIR in the last 168 hours. Recent Labs 02/15/21 0105 02/14/21 1413 CALCIUM 9.5 9.8 MAGNESIUM 0.81 -- Recent Labs 02/15/21 0717 02/14/21 2316 02/14/21 1413 TROPONINT <0.01 <0.01 <0.01 Assessment: Rolo Aguilar is a 50 y.o. male admitted from the ED last night. His past medical history is quite complicated for a 50 year old man, with morbid obesity, HTN, CAD (s/p PCI 07/2017), two prior ablations over the pasts few months- the first for a right atrial flutter and dual AV nodes, the second for atrial fibrillation, mitral annular flutter (and apparently dualAV florencia physiology was demonstrated at that second EPS). He has presented multiple times since then with rapid ventricular rates; most recently to [facility], where he believes that he was only in sinus rhythm for about 15 minutes. His amiodarone dose was increased to 400 mg twice daily at that visit. He arrived in the ED last night - he has been started on iv amiodarone (he was switched to iv heparin also but we will switch him back to apixaban) We had a long discussion about his arrhythmia substrate and his preference to be considered for a pacemaker and AVJ ablation. We discussed the potential problems of such an approach at his age. He indicates that he might be willing to accept the downstream consequences of AVJ/pacemaker at his age, rather than the possibility of a complication from another ablation attempt. We also discussed the possibility that his current atrial flutter might be an ablatable rhythm. For now, I have recommended that we load with amiodarone and attempt another cardioversion (either tomorrow or on Friday), further management plans are dependent upon his preference. He may wish to discuss some of this with Dr Escobar, with whom he has had his two prior ablation procedures. Plan: 1. Continue with amiodarone gtt today, start oral amiodarone tomorrow 2. NPO from midnight for probable cardioversion tomorrow 3. Longer term plan - likely repeat EPS/ablation versus consideration for AVJ/PPM NILSA GOLDSTEIN MD 02/15/2021 documented in this encounter H&P Notes * Brooks Reyna MD - 02/14/2021 7:55 PM EDT Cardiology Admission H&P Patient Name: Rolo Aguilar Date of : 1970 Age: 50 y.o. Hospital Admit Date: 02/14/2021 Inpatient Attending: Ivy Hurd MD PCP: Bin Bowman MD Presenting Diagnosis/Chief Complaint: Active Problem List: Active Hospital Problems Diagnosis ??? Atrial flutter Resolved Hospital Problems No resolved problems to display. History of Present Illness: 50 y/o M with obesity/PILAR/RICARDO, HTN, CAD s/p PCI to [facility] 07/2017, recurrent SVT/AT/AFL initially diagnosed 04/27/2020 followed by inferior CTI and AVRT ablation on 07/10/20 followed by PVI, posterior Left Atrial Wall and mitral annular flutter ablation on 01/10/21 that was c/b cardiac tamponade requiring pericardiocentesis. His clinical course has been marked by narrow complex tachycardias requiring recurrent hospitalizations/ED visits/ DCCV. He presented [place] [facility] [place] today with symptomatic tachycardia/plapitations. Pt reports was in usual state of health till 2 AM on 02/12/2021 while watching TV had a recurrence ofpalpitations with dyspnea, dizziness as well as diaphoresis. He checked his heart rate and it was in the 170s. Called EMS and landed at [facility] 40 minutes away. Thereby he got DCCV that was initially successful followed by a flutter recurrence within 15 minutes. He was subsequently discharged from the ED with heart rate in 120s on amiodarone 400 twice daily. Since then he reports has been unable to sleep secondary to palpitations. Decreased exercise tolerance due to dyspnea. Denies any chest pain/pressure/tightness. No significant leg swelling, orthopnea or PND. No fever or cough. Has not been vaccinated against Covid. Dr. Culver was contacted who recommended increasing Toprol from 100 mg/day to 150 mg daily. He took his first dose today however there was no improvement in heart rate therefore decided to come to the ED for further evaluation. He was recently started on Lasix 01/22/21 for CHF. F/u TTE with trace pericardial effusion. ?? ED course: BP 92/68-144/113, HR 105-128, RR 15 SPO2 96% room air EKG with atrial flutter with 2:1 conduction. Ventricular rate of 129 bpm, T wave inversion in the anterior leads. WBC 11.8, Hb 14, platelets 375 K Sodium 138, potassium 3.9, BUN/fruit harvester 13/1.09 Troponin<0.01, TSH 2.77 Covid PCR undetectable Meds received: Adenosine 6 mg IV once for narrow complex tachycardia in the ED showed underlying a flutter. Lopressor 5 mg IV once slowed ventricular response. Fentanyl 50 MCG IV once. After consultation with the ED it was decided 20 patient to EP service with initiation of amiodarone. Personal social history: with stepchildren. 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 Past smoker 1.5 pack/day for 15years. Quit almost 15 years ago. No history of EtOH or recreational drug use. Family history: Father at 72 and had mitral valve replaced. Mother alive at 86. Brother also with mitral valve disease. Sister with CAD at age 62. Past Medical History: Past Medical History: Diagnosis Date ??? A-fib ??? Anxiety ??? CAD (coronary artery disease) ??? Flutter-fibrillation ??? GERD (gastroesophageal reflux disease) ??? HLD (hyperlipidemia) ??? Hypertension ??? Seizure Surgical History/Problems: Past Surgical History: Procedure Laterality Date ??? PRO LAP, CHOLECYSTECTOMY/GRAPH N/A 07/21/2018 LAPAROSCOPIC CHOLECYSTECTOMY WITH CHOLANGIOGRAM (WRVU 11.47) performed by Colt Hewtit MD [facility] MAIN OR ??? PRO UNLISTED LAPAROSCOPIC PX LVR N/A 07/21/2018 LAPAROSCOPIC LIVER BIOPSY (WRVU 16.52) performed by Colt Hewitt MD at [facility] MAIN OR ??? PRO UPPER GI ENDOSCOPY, BIOPSY N/A 12/29/2017 UPPER GASTROINTESTINAL ENDOSCOPY,WITH BIOPSY SINGLE OR MULTIPLE (WRVU 2.49) performed by Yusuf Tucker MD at [facility] ENDOSCOPY ??? PRO UPPER GI ENDOSCOPY, DIAGNOSTIC N/A 12/29/2017 EGD, UPPER GI ENDOSCOPY performed by Yusuf Tucker MD at [facility] ENDOSCOPY ??? TONSILLECTOMY Significant Family History: Family History Problem Relation Age of Onset ??? Coronary Artery Disease Father ??? Hypertension Father ??? Coronary Artery Disease Brother ??? Hypertension Brother ??? Diabetes Brother Social History: Social History Socioeconomic History ??? Marital status: Spouse name: Not on file ??? Number of children: Not on file ??? Years of education: Not on file ??? Highest education level: Not on file Occupational History ??? Not on file Tobacco Use ??? Smoking status: Former Smoker Types: Cigarettes Quit date: 2013 Years since quittin.2 ??? Smokeless tobacco: Former User Types: Chew Substance and Sexual Activity ??? Alcohol use: No ??? Drug use: Yes Types: Marijuana Comment: medical MJ ??? Sexual activity: Never Other Topics Concern ??? Not on file Social History Narrative ??? Not on file Social Determinants of Health Financial Resource Strain: ??? Difficulty of Paying Living Expenses: Food Insecurity: ??? Worried About Running Out of Food in the Last Year: ??? Ran Out of Food in the Last Year: Transportation Needs: ??? Lack of Transportation (Medical): ??? Lack of Transportation (Non-Medical): Physical Activity: ??? Days of Exercise per Week: ??? Minutes of Exercise per Session: Stress: ??? Feeling of Stress : Social Connections: ??? Frequency of Communication with Friends and Family: ??? Frequency of Social Gatherings with Friends and Family: ??? Attends Jew Services: ??? Active Member of Clubs or Organizations: ??? Attends Club or Organization Meetings: ??? Marital Status: Intimate Partner Violence: ??? Fear of Current or Ex-Partner: ??? Emotionally Abused: ??? Physically Abused: ??? Sexually Abused: REVIEW OF SYSTEMS: Review of Systems Constitutional: Positive for activity change, diaphoresis and fatigue. Negative for appetite change, chills, fever and unexpected weight change. HENT: Negative. Eyes: Negative. Respiratory: Positive for apnea and shortness of breath. Negative for cough, choking, chest tightness, wheezing and stridor. Cardiovascular: Positive for palpitations. Negative for chest pain and leg swelling. Gastrointestinal: Positive for diarrhea. Negative for abdominal distention, abdominal pain, anal bleeding, blood in stool, constipation, nausea, rectal pain and vomiting. Endocrine: Negative. Genitourinary: Negative. Musculoskeletal: Positive for arthralgias and back pain. Negative for gait problem, joint swelling,myalgias, neck pain and neck stiffness. Skin: Negative. Allergic/Immunologic: Negative. Neurological: Positive for dizziness and weakness. Negative for tremors, seizures, syncope, facial asymmetry, speech difficulty, light-headedness, numbness and headaches. Hematological: Negative. Psychiatric/Behavioral: Negative. Medications: (Not in a hospital admission) Allergies: Allergies Allergen Reactions ??? Adenosine Palpitations tachycardia ??? Gabapentin ??? Wellbutrin [Bupropion Hcl] ??? Zoloft [Sertraline] PHYSICAL EXAM: Last set of vital signs: BP 96/72 Pulse (!) 115 Temp 37.4 ??C (99.3 ??F) (Oral) Resp 20 Wt (!) 166.9 kg (368 lb) SpO2 96% BMI 59.40 kg/m?? Physical Exam Vitals reviewed. Constitutional: General: He is not in acute distress. Appearance: He is obese. HENT: Head: Normocephalic and atraumatic. Right Ear: External ear normal. Left Ear: External ear normal. Mouth/Throat: Mouth: Mucous membranes are moist. Eyes: General: No scleral icterus. Extraocular Movements: Extraocular movements intact. Pupils: Pupils are equal, round, and reactive to light. Neck: Vascular: No carotid bruit. Comments: No JVD. Cardiovascular: Rate and Rhythm: Regular rhythm. Tachycardia present. Heart sounds: No murmur. No gallop. Pulmonary: Effort: No respiratory distress. Breath sounds: No stridor. No wheezing, rhonchi or rales. Chest: Chest wall: No tenderness. Abdominal: General: There is distension. Palpations: Abdomen is soft. Tenderness: There is no abdominal tenderness. There is no right CVA tenderness, left CVA tendernessor guarding. Musculoskeletal: General: Normal range of motion. Cervical back: Normal range of motion. Right lower leg: No edema. Left lower leg: No edema. Skin: General: Skin is warm and dry. Capillary Refill: Capillary refill takes 2 to 3 seconds. Findings: No rash. Neurological: General: No focal deficit present. Mental Status: He is alert and oriented to person, place, and time. Psychiatric: Mood and Affect: Mood normal. Behavior: Behavior normal. Diagnostics: I have independently visualized the following studies: TTE 01/22/21 from [facility] No pericardial effusion. EF 60-65%. Large pleural effusion. TTE 01/13/21 SUMMARY: ?? 1. Limited study to evaluate for pericardial effusion. 2. Patient is with tachyarrhythmia for some portions of the exam. 3. Trivial posterior pericardial effusion, without right-sided chambre collapse nor evidence of enhanced ventricular interdependence. 4. IVC is dilated but non-plethoric. 5. Compared to yesterday's study, there has been no significant change. LABS: Recent Results (from the past 24 hour(s)) Basic Metabolic Panel (non-fasting) Result Value Ref Range Glucose Lvl 109 65 - 199 mg/dL BUN 13 10 - 20 mg/dL Creatinine 1.09 0.80 - 1.50 mg/dL Sodium 138 135 - 145 mmol/L Potassium 3.9 3.5 - 5.0 mmol/L Chloride 101 98 - 107 mmol/L CO2 25 22 - 31 mmol/L Anion Gap 12 5 - 15 mmol/L Calcium 9.8 8.5 - 10.5 mg/dL Estimated GFR 78 >=60 mL/min/1.73 m?? Troponin Result Value Ref Range Troponin-T <0.01 0.00 - 0.00 ng/mL TSH Tyrone Result Value Ref Range TSH 2.77 0.27 - 4.20 mcIU/mL Hemogram Result Value Ref Range WBC 11.8 (H) 4.0 - 9.5 x10(3)/mcL RBC 5.27 4.58 - 5.54 x10(6)/mcL Hemoglobin 14.0 13.7 - 16.5 gm/dL Hematocrit 43.2 40.5 - 48.5 % MCV 82.0 (L) 82.9 - 93.1 fL MCH 26.6 (L) 27.5 - 32.1 pg MCHC 32.4 32.0 - 35.7 gm/dL Platelets 375 (H) 145 - 357 x10(3)/mcL RDWSD 41.3 36.0 - 45.0 fL RDWCV 13.9 (H) 11.4 - 13.8 % MPV 10.5 7.6 - 12.9 fL nRBC % Auto 0.0 % nRBC Abs Auto 0.000 0.000 - 0.000 x10(3)/mcL Differential, Automated Result Value Ref Range Neutrophils % 67.6 % Neutr Abs (ANC) 7.95 (H) 1 - 6 x10(3)/mcL Lymphocytes % 23.4 % Lymphocytes Abs 2.8 0.9 - 3.2 x10(3)/mcL Monocytes % 7.6 % Monocyte Abs 0.9 0.3 - 0.9 x10(3)/mcL Eosinophils % 0.6 % Eosinophils Abs 0.1 0.0 - 0.4 x10(3)/mcL Basophils % 0.4 % Basophils Abs 0.0 0.0 - 0.1 x10(3)/mcL Immature Gran % 0.40 % Amy Gran Abs 0.05 (H) 0.00 - 0.04 x10(3)/mcL Blue Tube HOLD Result Value Ref Range Blue Hold Sample in lab. ASSESSMENT: 50 y/o M with obesity/PILAR, HTN, CAD s/p PCI to ELEANOR 2016, recurrent SVT/AT/AFL initially diagnosed 04/27/2020 followed by inferior CTI and AVRT ablation 07/10/20 followed by PVI, posterior Left Atrial Wall and mitral annular flutter ablation 01/10/21 c/b cardiac tamponade requiring pericardiocentesis presented to ED with symptomatic tachycardia/plapitations. TREATMENT PLAN: #Recurrent Aflutter -Patient will receive IV amiodarone load -Meanwhile we will continue with current dose of Toprol XL 150 mg/d. Formulation has been changed to short acting tartrate given soft systolic blood pressures. -Last Eliquis dose at 8 AM on 02/14/21. -We will consider switching to heparin drip tentatively in case plan changes for AVN ablation. -Patient tentatively planned for DCCV 02/16/21. -Meanwhile continue with colchicine. #HTN -Holding lisinopril 2.5 due to soft BPs. #CAD -Continue with ASA/Lipitor #Bipolar Disorder - continue home clonazepam 1 mg bid prn - continue home lamotrigine 200 mg qd ?? #GERD - continue pantoprazole 40 mg/d. #Chronic diastolic Heart Failure ?? Other: - DVT prophylaxis:??restart apixaban when bleed r/o - GI prophylaxis:??N/A - Diet:??Cardiac Diet - Code Status: Full Provider: Brooks Reyna MD Provider #: [id number] 02/14/2021 documented in this encounter ED Notes * Maggie Ramos RN - 02/14/2021 10:22 PM EDT Provider at the bedside * Maggie Ramos RN - 02/14/2021 9:41 PM EDT Patient requesting for his night meds. Listed Provider paged and referred to Cardiology Hospitalist. Will page Cardiology * Maggie Ramos RN - 02/14/2021 8:02 PM EDT Patient awake in bed with unlabored respirations, HR in the 112. Patient awaiting admission to floor. * Nathen Figueroa MD - 02/14/2021 2:06 PM EDT ED Attending Note HPI: Rolo Aguilar is a 50 y.o. male who presents to the Emergency Department with a tacky arrhythmia. He has a history of atrial fibrillation a flutter and SVT status post ablation followed by electrophysiology Dr. Escobar here. He recently was cardioverted at [facility] 2 days ago which transiently converted him to sinus rhythm for about 20 minutes he states however he has been in atacky arrhythmia since then. Cardiology increased his amiodarone to 400 mg twice daily and his metoprolol was increased to 150 mg/day which he started this morning. He denies any chest pain or shortness of breath currently. He denies any new cardiac symptoms. No fevers or chills. He also does have a history of NSTEMI with drug-eluting stent to the OM branch in 2017. Review of Systems Pertinent positives and negatives are included in the HPI, otherwise at least ten systems were reviewed and negative. Past Medical and Surgical Histories, Social History, Medications, Allergies were reviewed in the chart. Vitals: ED Triage Vitals [02/14/21 1312] BP: n/a Heart Rate: (!) 129 Resp: 18 Temp: 37.4 ??C (99.3 ??F) Temp src: Oral SpO2: 99 % O2 Device: RA O2 Flow Rate (L/min): n/a Physical Exam Patient well-appearing nontoxic in no acute distress Neuro: Patient moving all 4 extremities no motor deficit numbness or weakness. Gait is normal. GCS is 15 Heart: Heart is tachycardic and regular. Lungs: Respirations are normal unlabored. Skin: Warm well perfused nondiaphoretic Last 3 wbc, hgb, hct plt Recent Labs 02/15/21 0105 02/14/21 1413 02/05/21 1404 WBC 9.7* 11.8* 6.9 HGB 13.4* 14.0 13.0* HCT 42.0 43.2 40.7 PLATELET 353 375* 293 No orders to display Procedures Assessment and Plan: 50 y.o. male with tacky arrhythmia resistant to metoprolol amiodarone and cardioversion. I did speak with the senior principal software engineer on-call given the complexity of patient's presentations and he did recommend starting with low- dose adenosine 6 mg to determine if this is SVT versus atrial flutter witha buried flutter wave. Patient did report that he received adenosine once which caused a tachyarrhythmia however the on-call lecture claim processor did review records and did inform you that patient has received adenosine during ablation procedures and he has had response to adenosine in the past andhe recommended using it today. Patient did receive 6 mg of adenosine and had no complications this did demonstrate atrial flutter I then treated him with 5 mg of metoprolol his rate is improved he will be admitted to the electrophysiology service please see their note for details. Did this case involve critical care? Yes CRITICAL CARE DOCUMENTATION: Is there a high potential of sudden, clinically significant, or life threatening deterioration? Yes Are there life and/or organ supporting interventions that require frequent personal assessment and manipulation or support to treat/prevent vital organ failure/deterioration? yes I personally performed 30 minutes of aggregate critical care time exclusive of procedures and teaching during this emergency department visit. This includes time spent during direct patient evaluation and reassessment, interpreting diagnostic tests, directing life and/or organ supporting interventions, and documentation. Nathen Figueroa MD 02/15/21 1337 * Erich Bates RN - 02/14/2021 1:48 PM EDT Pt ambulatory to room 19, reports no chest pain, mild SOB. Skin w/p/d. Has 1 visitor. * Juanito Meza PA - 02/14/2021 1:08 PM EDT PROVIDER TRIAGE NOTE Patient: Rolo Aguilar Age (): 50 y.o. (1970) CC: Tachycardia HPI: Rolo Aguilar is a 50 y.o. male with PMH significant for bipolar, morbid obesity, afib on eliquis, SVT, who presented to the ED for tachycardia. He was cardioverted 2 days ago at [facility] and then went right back into afib. He is feeling short of breath and a little dizzy. He contacted his EP doctor here (melisa) and was told to come to the ED. He had an ablation on January 10. COVID-19 Screening: Symptoms [] Fever [] Cough [x] SOB [] None Exposure [] Recent travel outside [place] [] Contact with known or suspected positive individuals [x] None PE: There were no vitals taken for this visit. Patient well-appearing, no acute distress. PLAN: EKG/Labs ordered. Repeat examination, obtain further diagnostics as indicated, and ongoing evaluation/management per ED provider. Juanito Meza PA 02/14/21 1315 documented in this encounter Miscellaneous Notes * Plan of Care - Valentin North, RN - 02/16/2021 6:10 AM EDT OUTCOME EVALUATION NOTE: OUTCOME SUMMARY: Uneventful night, slept between care. VS as documented. Voids with no issue (forgets to use urinal). Amio drip maintained per order. Converted to NSR around 0510, see tele full report. NPO since midnight. PLAN MOVING FORWARD: Pending course. INDIVIDUALIZED FALL PREVENTION INTERVENTIONS: Patient-specific fall risk factors per assessment: [current deficits]: Tele wires Assistance [level of assistance required for transfers and ambulation]: Indep Supervision [direct monitoring required during toileting and ADLs]: Indep Surveillance [continuous indirect monitoring]: Tele, pulse ox, purposeful rounding, call weeks in reach CPG GOAL OUTCOME EVALUATION: ongoing * Plan of Care - Luis Alberto Palafox RN - 02/15/2021 6:03 PM EDT OUTCOME EVALUATION NOTE: OUTCOME SUMMARY: Pt reports no SOB/CP, VS as seen in chart. SP02 mid to high 90s on RA, Aflutter on tele, HR 100s-120s. Heparin gtt DCed, Amio gtt maintained per protocol. Reports Lower back pain, tylenol + lidocainegiven W/good relief. PLAN MOVING FORWARD: NPO @[place], DCCV 02/16 INDIVIDUALIZED FALL PREVENTION INTERVENTIONS: Patient-specific fall risk factors per assessment: [current deficits]: Tele leads, IV Pole Assistance [level of assistance required for transfers and ambulation]: SBA Supervision [direct monitoring required during toileting and ADLs]: Int. Surveillance [continuous indirect monitoring]: Tele/Pulse OX Patient-specific fall prevention interventions for sensory deficits provided, if applicable: Call weeks within reach, Bed in low position, Upper rails raised x2, Non-skid socks on when out of bed CPG GOAL OUTCOME EVALUATION: Ongoing * Initial Assessments - Chanell Fatima RN - 02/15/2021 7:45 AM EDT Office of Care Management Initial Assessment Chanell Fatima RN reviewed record and discussed patient with Care Team. Source of Information: Team, bedside nurse, medical record, and Source: (Chart review) Reason for Hospitalization: palpitations Last COVID test: Lab Results Component Value Date COVID19 Not Detected 07/05/2020 [id number] Not Detected 02/14/2021 Past medical History: Past Medical History: Diagnosis Date ??? A-fib ??? Anxiety ??? Arthritis ??? CAD (coronary artery disease) ??? Depression ??? Flutter-fibrillation ??? GERD (gastroesophageal reflux disease) ??? Hepatitis ??? HLD (hyperlipidemia) ??? Hypertension ??? Seizure Hospitalizations Within the Past 30 Days: 0; no previous admission in last 30 days Anticipated Length Of Stay (If known): 2-3 days Current Decision-Making Capacity: Decision Maker: Self Advance Care Planning: Attempt Cardiopulmonary Resuscitation - Inpatient <no information> -Advanced Directive: No, need to discuss If AD's have not been completed spouse would be surrogate decision maker per [place] surrogate decision making law. (Only good for 90 days) Any [place] [facility] abide by [place]. The hierarchy for surrogate decision making is: (a) Patient???s spouse, or civil union partner or common law spouse unless there is a divorce proceeding, separation agreement, or restraining order limiting that person???s relationship with the patient. (b) Any adult son or daughter of the patient. (c) Either parent of the patient. (d) Any adult brother or sister of the patient. (e) Any adult grandchild of the patient. (f) Any grandparent of the patient. (g) Any adult aunt, uncle, niece, or nephew of the patient. (h) A close friend of the patient. (i) The agent with financial power of disability attorney or a conservator appointed in accordance with RSA 464-A. (j) The guardian of the patient???s estate. Current Coping/Education/Information Needs: Confirms that providers have been good about communicating information to them and denies current questions. Current Functional Ability: Independent Functional Status Prior to Admission: Independent Home Environment: Patient lives with spouse in a house. Current DME: none Home Address Confirmed as: [address] [place] [address] Social & Family Supports: Extended Emergency Contact Information Primary Emergency Contact: Autumn Aguilar Address: [address] [place] [address] [facility] Mobile Relation: Spouse Secondary Emergency Contact: TadeoWhitney Address: [address] [place] [id number] [facility] Relation: Sibling Primary Care Provided by: self Provides Primary Care For: no one Family Caregiver if needed: spouse Quality of Family relationships: supportive Community Resources being provided currently: (None) Behavioral Health History: none noted Substance Use/Abuse: Listed as: Social History Tobacco Use Smoking Status Former Smoker ??? Packs/day: 1.50 ??? Years: 15.00 ??? Pack years: 22.50 ??? Types: Cigarettes ??? Quit date: 2013 ??? Years since quittin.2 Social History Substance and Sexual Activity Alcohol Use No Social History Substance and Sexual Activity Drug Use Yes ??? Types: Marijuana Comment: medical MJ Other Pertinent/Service Specific Information: No Health/Prescription Coverage: Primary Insurance: [place] Payor: [place] / Plan: [place] PRIMARY CARE PLUS / Product Type: *No Product type* / Secondary Insurance: N/A Prescription Coverage: Yes Preferred Pharmacy: [facility] [address] [place] [address] [address] [address] [facility] [address] Primary Care Provider: Bin Bowman MD [phone] Patient/Caregiver Goals of Treatment: [place] home Potential Needs for Transition of Care: Patient/Family Anticipated Services at Transition: none Agency Referrals: None Transportation: family or friend will provide Anticipated Barriers to Discharge/Concerns to be Addressed: no discharge needs identified Assessment: Patient is admitted to cardioloy/EP service for tachycardia/palpitations Plan: Patient with no apparent RNCM/SW needs at this time. No housing, transportation, insurance, resources concerns identified at this time. Supports in place to achieve a safe post-hospital transition. No identified barriers to accessing necessary care and/or follow-up after discharge. A member of the Care Management team will continue to monitor progress, follow for continuity of care and assist with transition of care planning. Chanell Fatima, RN, MSN, operating room technician Office of Care Management Pager: [phone] Work * ED Triage - Deepika To RN - 02/14/2021 1:15 PM EDT HPI (Adult) Stated Reason for Visit: I was cardioverted 2 days ago at [facility] and went back into tachycardia after 15 minutes. I have been 120-180 heart rate since. History Obtained From: patient Pt. Referred to come here by cardiology for persistent tachycardia. Pt. Has hx pericarditis. documented in this encounter Plan of Treatment Upcoming Encounters Date Type Department Care Team (Latest Contact Info) Description 06/07/2024 2:00 PM EDT Office [place] [phone] Joan Castro MD [facility] [place] [address] 06/11/2024 1:03 PM EDT Hospital Encounter [place] [phone] Rachel Carrasco MD [facility] UROLOGY [place] [id number] 06/11/2024 1:03 PM EDT - 06/11/2024 1:58 PM EDT Surgery [place] [address] Rachel Carrasco MD [facility] [place] [address] CYSTO, REMOVAL OF STENT, FOREIGN BODY OR CALCULUS, SIMPLE (WRVU 2.81) 06/23/2024 10:00 AM EDT Office Visit Cardiology at [address] [place] [address] Nilsa Goldstein MD [facility] [place] [address] Scheduled Orders Name Type Priority Associated Diagnoses Orde r Schedule EKG 12 Lead ECG STAT One Time for 1 Occurrences starting 02/14/2021 until 02/14/2021 EKG 12 Lead ECG STAT Atrial flutter One Time for 1 Occurrences starting 02/16/2021 until 02/16/2021 Scheduled Procedures Name Priority Associated Diagnoses Date/Ti me CYSTO, REMOVAL OF STENT, FOR EIGN BODY OR CALCULUS, SIMPLE (WRVU 2.81) NEPHROLITHIASIS 06/11/2024 1:03 PM EDT documented as of this encounter Procedures Procedure Name Priority Date/Time Associated Diagnosis Comments CARDIOVERSION-OR Routine 02/20/2021 8:21 AM EDT HC VENIPUNCTURE STAT 02/17/2021 6:00 AM EDT EKG 12-LEAD STAT 02/16/2021 7:45 AM EDT Atrial flutter LAVENDER TUBE HOLD STAT 02/16/2021 4: 00 AM EDT HC VENIPUNCTURE STAT 02/16/2021 4:00 AM EDT HC UNFRACTIONATED HEPARIN (HEP UFH) STAT 02/15/2021 7:17 AM EDT HC TROPONIN T STAT 02/15/2021 7:17 AM EDT HC UNFRACTIONATED HEPARIN (HEP UFH) STAT 02/15/2021 1:05 AM EDT HEMOGRAM STAT 02/15/2021 1:05 AM EDT DIFFERENTIAL, AUTOMATED STAT 02/16/20 1:05 AM EDT HC CBC,PLT & AUTO DIFF STAT 1:05 AM EDT HC MAGNESIUM, SERUM STAT 02/15/2021 1 :05 AM EDT BASIC METABOLIC PANEL (NON-FASTING) STAT 02/15/2021 1:05 AM EDT GOLD TUBE HOLD STAT 02/14/2021 11:16 PM EDT HC TROPONIN T STAT 02/14/2021 11:16 PM EDT HC PROBNP STAT 02/14/2021 11:16 PM EDT XR CHEST ONE VIEW STAT 02/14/2021 10: 10 PM EDT RAPID COVID-19 PCR ([facility]) STAT 02/14/2021 6:43 PM EDT HC THYROID STIMULATING HORMONE, SERUM STAT 02/14/2021 2:13 PM EDT HEMOGRAM STAT 02/14/2021 2:13 PM EDT DIFFERENTIAL, AUTOMATED STAT 02/15/20 2:13 PM EDT BLUE TUBE HOLD STAT 02/14/2021 2:13 PM EDT HC CBC,PLT & AUTO DIFF STAT 2:13 PM EDT HC TROPONIN T STAT 02/14/2021 2:13 PM EDT BASIC METABOLIC PANEL (NON-FASTING) STAT 02/14/2021 2:13 PM EDT EKG 12-LEAD STAT 02/14/2021 1:14 PM EDT Cardioversion Elective Arrhythmia External (06014) atrial flutter documented in this encounter Results * Electrolytes panel (02/17/2021 6:00 AM EDT) Sodium 138 135 - 145 mmol/L [facility] Potassium 3.6 3.5 - 5.0 mmol/L [facility] Comment: Please note: ??Patients with WBC >100,000 may have falsely elevated Potassium levels. ??For accurate Potassium quantification in these patients send serum separator tube (gold top) for subsequent determinations. ??Contact the Clinical Chemistry Laboratory if there are any questions. Chloride 102 98 - 107 mmol/L [facility] CO2 26 22 - 31 mmol/L [facility] Anion Gap 10 5 - 15 mmol/L [facility] Blood specimen (specimen) 02/17/2021 6:00 AM EDT 02/17/2021 6:13 AM EDT Narrative Resulting Agency Comment Spec In Lab Brooks Reyna MD CHEMISTRY ORDER BELEN [facility] [place] [address] * EKG 12 Lead (02/16/2021 7:45 AM EDT) Ventricular rate 70 BPM MUSE SYSTEM Atrial Rate 70 BPM MUSE SYSTEM P-R Interval 106 ms MUSE SYSTEM QRS Duration 100 ms MUSE SYSTEM Q-T Interval 440 ms MUSE SYSTEM QTC Calculated (Bezet) 475 ms MUSE SYSTEM Calculated P [place] 55 degrees MUSE SYSTEM Calculated R [place] 33 degrees MUSE SYSTEM Calculated T [place] 21 degrees MUSE SYSTEM INTERPRETATION Sinus rhythm Inferior infarct , age undetermined Nonspecific T wave abnormality Abnormal ECG When compared with ECG of 14-FEB-2021 13:14, Sinus rhythm has replaced Atrial flutter Confirmed by MD Corby, Roberto Carlos Lopez ([id number]) on 02/16/2021 3:30:41 PM MUSE SYSTEM 02/16/2021 7:45 AM EDT 02/16/2021 3:30 PM EDT Brooks Reyna MD ECG ORDERABLES Performing Organization Address City/[facility]/ZIP Co de Phone Number MUSE SYSTEM * Lavender Tube HOLD (02/16/2021 4:00 AM EDT) Lavender Hold Sample in lab. [facility] Blood specimen (specimen) Venous Draw / Unknown 02/16/2021 4:00 AM EDT 02/16/2021 4:24 AM EDT Brooks Reyna MD HEMATOLOGY ORDE RABLES Performing Organization Address City/[facility] Co de Phone Number [facility] [place] [address] * Electrolytes panel (02/16/2021 4:00 AM EDT) Sodium 141 135 - 145 mmol/L [facility] Potassium 3.7 3.5 - 5.0 mmol/L [facility] Comment: Please note: ??Patients with WBC >100,000 may have falsely elevated Potassium levels. ??For accurate Potassium quantification in these patients send serum separator tube (gold top) for subsequent determinations. ??Contact the Clinical Chemistry Laboratory if there are any questions. Chloride 104 98 - 107 mmol/L [facility] CO2 26 22 - 31 mmol/L [facility] Anion Gap 11 5 - 15 mmol/L [facility] Blood specimen (specimen) 02/16/2021 4:00 AM EDT 02/16/2021 4:23 AM EDT Narrative Resulting Agency Comment Spec In Lab Brooks Reyna MD CHEMISTRY ORDER BELEN Performing Organization Address [facility]/ZIP Co de Phone Number [facility] [place] [address] * Troponin (02/15/2021 7:17 AM EDT) Pathologist [facility] Troponin-T <0.01 0.00 - 0.00 ng/mL [facility] Comment: The 99th percentile for Troponin T is less than 0.01 ng/mL, any detectable cTnT concentration using this assay should be considered elevated. According to the third universal definition of myocardial infarction the following criteria with a clinical presentation consistent with acute myocardial ischemia meets the diagnosis for a myocardial infarction (SC). Detection of a rise and/or fall of cTnT, with at least one value greater than the 99th percentile (> or = 0.01) and with at least one of the following ?? Symptoms of ischemia ?? New or presumed new significant FF-odjbscy-E wave (ST-T) changes or new left bundle branch block (LBBB) ?? Development of pathologic Q waves in the ECG ?? Imaging evidence of new loss of viable myocardium or new regional wall motion abnormality ?? Identification of an intracoronary thrombus by angiography or autopsy Samples for cTnT testing should be obtained serially upon first assessment and again 3 to 6 hours later. If the clinical suspicion is high and previous samples have been negative an additional sample may be indicated. Reference: Third [place] Definition of Myocardial Infarction. Journal of the [place] [employer] 2012;60:1581-98 Blood specimen (specimen) 02/15/2021 7:17 AM EDT 02/15/2021 7:49 AM EDT Narrative Resulting Agency Comment Spec In Lab Brooks Reyna MD CHEMISTRY ORDER BELEN Performing Organization Address [facility] Co de Phone Number [facility] [place] [address] * (ABNORMAL) Heparin (unfractionated) Level (02/15/2021 7:17 AM EDT) Pathologist [facility] Heparin UFH Level 1.49(Crit ical) IU/mL [facility] Comment: Critical Result called by ?? GREG CRITICAL Results read back by: ? Luis Alberto Palafox Guidelines for therapeutic unfractionated heparin levels are summarized below. Heparin (Anti-Xa) levels should be determined in a plasma sample that has been drawn 6 hours after a dose change i.e., steady-state has been reached. DRUG ?Dosing Schedule ? Target Peak Steady-State ?Heparin (Anti-Xa) Levels (Units/mL) Unfractionated ?Continuous infusion ?0.3-0.7 Heparin ?0.3-0.6 for some neurology indications Blood specimen (specimen) 02/15/2021 7:17 AM EDT 02/15/2021 7:49 AM EDT Narrative Resulting Agency Comment Spec In Lab Brooks Reyna MD HEMATOLOGY SCOOTER YOUNGBLOOD [facility] [place] [address] * Differential, Automated (02/15/2021 1:05 AM EDT) Neutrophils % 59.6 % [facility] Neutr Abs (ANC) 5.76 1.70 - 6.10 x10(3)/[facility] Lymphocytes % 32.9 % [facility] Lymphocytes Abs 3.2 0.9 - 3.2 x10(3)/[facility] Monocytes % 5.8 % [facility] Monocyte Abs 0.6 0.3 - 0.9 x10(3)/[facility] Eosinophils % 1.0 % [facility] Eosinophils Abs 0.1 0.0 - 0.4 x10(3)/[facility] Basophils % 0.3 % [facility] Basophils Abs 0.0 0.0 - 0.1 x10(3)/[facility] Immature Gran % 0.40 % [facility] Comment: Immature granulocytes(IG's)percentage and absolute count will include metamyelocytes, myelocytes, and promyelocytes. Blood smears from CBCs yielding IG's will be scanned manually for concordance. If this scan disagrees with the automated IG or if promyelocytes are noted, a manual differential will be performed. Amy Gran Abs 0.04 0.00 - 0.04 x10(3)/[facility] Blood specimen (specimen) 02/15/2021 1:05 AM EDT 02/15/2021 1:21 AM EDT Narrative Resulting Agency Comment Spec In Lab Brooks Reyna MD [facility] [place] [address] * (ABNORMAL) Hemogram (02/15/2021 1:05 AM EDT) WBC 9.7(H) 4.0 - 9.5 x10(3)/[facility] RBC 5.16 4.58 - 5.54 x10(6)/[facility] Hemoglobin 13.4(L) 13.7 - 16.5 gm/dL [facility] Hematocrit 42.0 40.5 - 48.5 % [facility] MCV 81.4(L) 82.9 - 93.1 fL [facility] MCH 26.0(L) 27.5 - 32.1 pg [facility] MCHC 31.9(L) 32.0 - 35.7 gm/dL [facility] Platelets 353 145 - 357 x10(3)/[facility] RDWSD 41.5 36.0 - 45.0 [facility] RDWCV 14.0(H) 11.4 - 13.8 % [facility] MPV 9.9 7.6 - 12.9 [facility] nRBC % Auto 0.0 % [facility] nRBC Abs Auto 0.000 0.000 - 0.000 x10(3)/[facility] Blood specimen (specimen) 02/15/2021 1:05 AM EDT 02/15/2021 1:21 AM EDT Narrative Resulting Agency Comment Spec In Lab Brooks Reyna MD HEMATOLOGY SCOOTER YOUNGBLOOD [facility] [place] [address] * (ABNORMAL) Heparin (unfractionated) Level (02/15/2021 1:05 AM EDT) Heparin UFH Level 1.92(Crit ical) IU/mL [facility] Comment: Critical Result called by ?? FADI CRITICAL Results read back by: ? Lashawn Foley at 2021-02-15 01:41:04 Guidelines for therapeutic unfractionated heparin levels are summarized below. Heparin (Anti-Xa) levels should be determined in a plasma sample that has been drawn 6 hours after a dose change i.e., steady-state has been reached. DRUG ?Dosing Schedule ? Target Peak Steady-State ?Heparin (Anti-Xa) Levels (Units/mL) Unfractionated ?Continuous infusion ?0.3-0.7 Heparin ?0.3-0.6 for some neurology indications Blood specimen (specimen) 02/15/2021 1:05 AM EDT 02/15/2021 1:21 AM EDT Narrative Resulting Agency Comment Spec In Lab Brooks Reyna MD HEMATOLOGY ORDE RABLES Performing Organization Address [facility] Co de Phone Number [facility] [place] [address] * Magnesium (02/15/2021 1:05 AM EDT) Magnesium 0.81 0.69 - 1.07 mmol/L [facility] Blood specimen (specimen) 02/15/2021 1:05 AM EDT 02/15/2021 1:21 AM EDT Narrative Resulting Agency Comment Spec In Lab Brooks Reyna MD CHEMISTRY ORDER BELEN Performing Organization Address [facility] Co de Phone Number [facility] [place] [address] * Basic Metabolic Panel (non-fasting) (02/15/2021 1:05 AM EDT) Glucose Lvl 137 65 - 199 mg/dL [facility] Comment:Diabetes: >=200 mg/d L plus symptoms BUN 13 10 - 20 mg/dL [facility] Creatinine 1.08 0.80 - 1.50 mg/dL [facility] Sodium 143 135 - 145 mmol/L [facility] Potassium 4.0 3.5 - 5.0 mmol/L [facility] Comment: Please note: ??Patients with WBC >100,000 may have falsely elevated Potassium levels. ??For accurate Potassium quantification in these patients send serum separator tube (gold top) for subsequent determinations. ??Contact the Clinical Chemistry Laboratory if there are any questions. Chloride 104 98 - 107 mmol/L [facility] CO2 27 22 - 31 mmol/L [facility] Anion Gap 12 5 - 15 mmol/L [facility] Calcium 9.5 8.5 - 10.5 mg/dL [facility] Estimated GFR 79 >=60 mL/min/1. 73 m?? [facility] Comment: This patient? s estimated glomerular filtration rate (eGFR) is between 79 mL/min/1.73 m2 (patients with less muscle mass per kg body weight) and 92 mL/min/1.73 m2 (patients with more muscle mass per kg body weight) as determined by the CKD-EPI equation. Assessment of eGFR is not appropriate when creatinine concentrations are rapidly changing. For clinical decisions where creatinine clearance will affect therapy, a 24-hour urine creatinine clearance may be advised. Assignment of CKD stage 1 - 5 for patients with an eGFR near the transition point between stages may be based on clinical assessment of muscle mass and symptoms in addition to eGFR. Blood specimen (specimen) 02/15/2021 1:05 AM EDT 02/15/2021 1:21 AM EDT Narrative Resulting Agency Comment Spec In Lab Brooks Reyna MD CHEMISTRY ORDER BELEN [facility] [place] [address] * Gold Tube HOLD (02/14/2021 11:16 PM EDT) Gold Hold Sample in lab. [facility] Blood specimen (specimen) Venous Draw / Unknown 02/14/2021 11:16 PM EDT 02/14/2021 11:21 PM EDT Brooks Reyna MD CHEMISTRY ORDER BELEN [facility] [place] [address] * Troponin (02/14/2021 11:16 PM EDT) Troponin-T <0.01 0.00 - 0.00 ng/mL [facility] Comment: The 99th percentile for Troponin T is less than 0.01 ng/mL, any detectable cTnT concentration using this assay should be considered elevated. According to the third universal definition of myocardial infarction the following criteria with a clinical presentation consistent with acute myocardial ischemia meets the diagnosis for a myocardial infarction (SC). Detection of a rise and/or fall of cTnT, with at least one value greater than the 99th percentile (> or = 0.01) and with at least one of the following ?? Symptoms of ischemia ?? New or presumed new significant PB-uybaohp-R wave (ST-T) changes or new left bundle branch block (LBBB) ?? Development of pathologic Q waves in the ECG ?? Imaging evidence of new loss of viable myocardium or new regional wall motion abnormality ?? Identification of an intracoronary thrombus by angiography or autopsy Samples for cTnT testing should be obtained serially upon first assessment and again 3 to 6 hours later. If the clinical suspicion is high and previous samples have been negative an additional sample may be indicated. Reference: Third [place] Definition of Myocardial Infarction. Journal of the [place] [employer] 2012;60:1581-98 Blood specimen (specimen) 02/14/2021 11:16 PM EDT 02/14/2021 11:20 PM EDT Narrative Resulting Agency Comment Spec In Lab Brooks Reyna MD CHEMISTRY ORDER BELEN Performing Organization Address City/[facility]/ZIP Co de Phone Number [facility] [place] [address] * (ABNORMAL) pro-Brain Natriuretic Peptide (02/14/2021 11:16 PM EDT) ProBNP 966(H) <=124 pg/mL [facility] Blood specimen (specimen) 02/14/2021 11:16 PM EDT 02/14/2021 11:20 PM EDT Narrative Resulting Agency Comment Spec In Lab Brooks Reyna MD CHEMISTRY ORDER BELEN Performing Organization Address City/[facility]/ZIP Co de Phone Number [facility] [place] [address] * XR Chest One View (02/14/2021 10:10 PM EDT) Anatomical Region Laterality Modality Chest N/A Digital Radiogra phy Impressions 02/14/2021 10:28 PM EDT Mildly prominent pulmonary vascular markings likely reflects some degree of pulmonary vascular congestion. No confluent focal area of consolidation. Probable small left-sided pleural effusion. Thank you for letting us participate in the care of this patient. ??If you are a health care provider and have any questions regarding this report, please contact the number below. ??For patients who have questions please contact the health resident care provider that requested your imaging first. ? Electronically signed by: Tali Chapa MD, [facility] ([phone]), at 02/14/2021 10:28 PM Narrative 02/14/2021 10:28 PM EDT EXAMINATION: XR CHEST ONE VIEW CLINICAL HISTORY: pt with afib rvr. R/o CHF. TECHNIQUE: 1 view of the chest COMPARISON: 01/31/2021 FINDINGS: Lung markings are mildly prominent likely related to combination of accentuation due to the portable technique and mild pulmonary vascular congestion. No confluent focal area of consolidation. Probable small left-sided pleural effusion. No sizable right-sided pleural effusion or pneumothorax. Cardiomediastinal silhouette is unchanged.No free air under the diaphragm. Procedure Note Tali Chapa MD - 02/14/2021 EXAMINATION: XR CHEST ONE VIEW CLINICAL HISTORY: pt with afib rvr. R/o CHF. TECHNIQUE: 1 view of the chest COMPARISON: 01/31/2021 FINDINGS: Lung markings are mildly prominent likely related to combinationof accentuation due to the portable technique and mild pulmonary vascular congestion. No confluent focal area of consolidation. Probable smallleft-sided pleural effusion. No sizable right-sided pleural effusion orpneumothorax. Cardiomediastinal silhouette is unchanged.No free air under thediaphragm. IMPRESSION Mildly prominent pulmonary vascular markings likely reflects some degree of pulmonary vascular congestion. No confluent focal area of consolidation. Probable small left-sided pleural effusion. Thank you for letting us participate in the care of this patient. If youare a health care provider and have any questions regarding this report,please contact the number below. For patients who have questions please contactthe health resident care provider that requested your imaging first. Electronically signed by: Tali Chapa MD, [facility]([phone]), at 02/14/2021 10:28 PM Brooks Reyna MD IMG DX ORDERABL ES * COVID-19 PCR (02/14/2021 6:43 PM EDT) SARS-CoV-2 RNA PCR Not Detected Not Detected [facility] Comment: This result should be interpreted in combination with the clinical observations, patient history and epidemiological information in making a final diagnosis. For testing of asymptomatic individuals, assay performance characteristics and clinical utility have not been evaluated. Testing for SARS-CoV-2 (Severe acute respiratory syndrome coronavirus 2, formerly known as 2019 novel coronavirus or 2019-nCoV) to aid in the diagnosis of COVID-19 is performed using the The [employer] SARS-CoV-2 Test as authorized by the FDA Emergency Use Authorization (EUA). This EUA assay is intended for In-vitro Diagnostic (IVD) use with respiratory specimens such as nasopharyngeal swabs collected from individuals during the acute phase of infection. This assay is performed based on the instructions for use provided by [employer] and additional guidance provided by CDC and FDA. Testing is performed in the [facility] within the Department of Pathology and Laboratory Medicine at [facility], certified under the Clinical Laboratory Improvement Amendments of 1988 (CLIA), 42 U.S.C. section 263a, to perform high complexity tests. Assay performance has been verified according to clinical laboratory regulatory requirements for use with specimens collected from individuals suspected of COVID-19. Test results are provided above. A result of Not Detected indicates that the viral RNA target is not present above the limit of detection, but does not preclude SARS-CoV-2 infection. False negative results may occur if a specimen is improperly collected, transported or handled; if amplification inhibitors are present; or if inadequate numbers of viral particles are present in the specimen. When a diagnostic test is negative, the possibility of a false negative result should be considered in the context of a patient? s recent exposures and the presence of clinical signs and symptoms consistent with COVID-19. A result of Detected indicates that RNA from SARS-CoV-2 was detected and the patient is infected. As required or requested by public health authorities, positive specimens may be sent for additional testing. Positive and negative predictive values for this test are highly dependent on disease prevalence. A result of Invalid indicates that neither the viral RNA targets nor the internal control target was detected. An invalid result suggests the presence of inhibitors. Recollection and re-testing is recommended in the case of an invalid result. 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 [facility] Blood specimen (specimen) Venous Draw / Unknown 02/14/2021 2:13 PM EDT 02/14/2021 2:30 PM EDT Juanito DENNIS HEMATOLOGY ORDERABLE S [facility] [place] [address] * (ABNORMAL) Differential, Automated (02/14/2021 2:13 PM EDT) [facility] Neutrophils % 67.6 % [facility] Neutr Abs (ANC) 7.95(H) 1.70 - 6.10 x10(3)/[facility] Lymphocytes % 23.4 % [facility] Lymphocytes Abs 2.8 0.9 - 3.2 x10(3)/[facility] Monocytes % 7.6 % [facility] Monocyte Abs 0.9 0.3 - 0.9 x10(3)/[facility] Eosinophils % 0.6 % [facility] Eosinophils Abs 0.1 0.0 - 0.4 x10(3)/[facility] Basophils % 0.4 % [facility] Basophils Abs 0.0 0.0 - 0.1 x10(3)/[facility] Immature Gran % 0.40 % [facility] Comment: Immature granulocytes(IG's)percentage and absolute count will include metamyelocytes, myelocytes, and promyelocytes. Blood smears from CBCs yielding IG's will be scanned manually for concordance. If this scan disagrees with the automated IG or if promyelocytes are noted, a manual differential will be performed. Amy Gran Abs 0.05(H) 0.00 - 0.04 x10(3)/ L [facility] Blood specimen (specimen) 02/14/2021 2:13 PM EDT 02/14/2021 2:30 PM EDT Narrative Resulting Agency Comment Spec In Lab Juanito DENNIS HEMATOLOGY ORDERABLE S Performing Organization Address City/[facility]/[place] [address] * (ABNORMAL) Hemogram (02/14/2021 2:13 PM EDT) WBC 11.8(H) 4.0 - 9.5 x10(3)/[facility] RBC 5.27 4.58 - 5.54 x10(6)/[facility] Hemoglobin 14.0 13.7 - 16.5 gm/dL [facility] Hematocrit 43.2 40.5 - 48.5 % [facility] MCV 82.0(L) 82.9 - 93.1 [facility] MCH 26.6(L) 27.5 - 32.1 pg [facility] MCHC 32.4 32.0 - 35.7 gm/dL [facility] Platelets 375(H) 145 - 357 x10(3)/[facility] RDWSD 41.3 36.0 - 45.0 [facility] RDWCV 13.9(H) 11.4 - 13.8 % [facility] MPV 10.5 7.6 - 12.9 [facility] nRBC % Auto 0.0 % [facility] nRBC Abs Auto 0.000 0.000 - 0.000 x10(3)/[facility] Blood specimen (specimen) 02/14/2021 2:13 PM EDT 02/14/2021 2:30 PM EDT Narrative Resulting Agency Comment Spec In Lab Juanito DENNIS HEMATOLOGY ORDERABLE S [facility] [place] [address] * TSH [place] (02/14/2021 2:13 PM EDT) [facility] TSH 2.77 0.27 - 4.20 mcIU/mL [facility] Blood specimen (specimen) 02/14/2021 2:13 PM EDT 02/14/2021 2:30 PM EDT Narrative Resulting Agency Comment Spec In Lab Rolo Wynn MD CHEMISTRY ORDERABLE S [facility] [place] [address] * Troponin (02/14/2021 2:13 PM EDT) [facility] Troponin-T <0.01 0.00 - 0.00 ng/mL [facility] Comment: The 99th percentile for Troponin T is less than 0.01 ng/mL, any detectable cTnT concentration using this assay should be considered elevated. According to the third universal definition of myocardial infarction the following criteria with a clinical presentation consistent with acute myocardial ischemia meets the diagnosis for a myocardial infarction (SC). Detection of a rise and/or fall of cTnT, with at least one value greater than the 99th percentile (> or = 0.01) and with at least one of the following ?? Symptoms of ischemia ?? New or presumed new significant BD-dtizxdk-U wave (ST-T) changes or new left bundle branch block (LBBB) ?? Development of pathologic Q waves in the ECG ?? Imaging evidence of new loss of viable myocardium or new regional wall motion abnormality ?? Identification of an intracoronary thrombus by angiography or autopsy Samples for cTnT testing should be obtained serially upon first assessment and again 3 to 6 hours later. If the clinical suspicion is high and previous samples have been negative an additional sample may be indicated. Reference: Third [place] Definition of Myocardial Infarction. Journal of the [place] [employer] 2012;60:1581-98 Blood specimen (specimen) 02/14/2021 2:13 PM EDT 02/14/2021 2:30 PM EDT Narrative Resulting Agency Comment Spec In Lab Rolo Wynn MD CHEMISTRY ORDERABLE S [facility] [place] [address] * Basic Metabolic Panel (non-fasting) (02/14/2021 2:13 PM EDT) Glucose Lvl 109 65 - 199 mg/dL [facility] Comment:Diabetes: >=200 mg/d L plus symptoms BUN 13 10 - 20 mg/dL [facility] Creatinine 1.09 0.80 - 1.50 mg/dL [facility] Sodium 138 135 - 145 mmol/L [facility] Potassium 3.9 3.5 - 5.0 mmol/L [facility] Comment: Please note: ??Patients with WBC >100,000 may have falsely elevated Potassium levels. ??For accurate Potassium quantification in these patients send serum separator tube (gold top) for subsequent determinations. ??Contact the Clinical Chemistry Laboratory if there are any questions. Chloride 101 98 - 107 mmol/L [facility] CO2 25 22 - 31 mmol/L [facility] Anion Gap 12 5 - 15 mmol/L [facility] Calcium 9.8 8.5 - 10.5 mg/dL [facility] Estimated GFR 78 >=60 mL/min/1. 73 m?? [facility] Comment: This patient? s estimated glomerular filtration rate (eGFR) is between 78 mL/min/1.73 m2 (patients with less muscle mass per kg body weight) and 91 mL/min/1.73 m2 (patients with more muscle mass per kg body weight) as determined by the CKD-EPI equation. Assessment of eGFR is not appropriate when creatinine concentrations are rapidly changing. For clinical decisions where creatinine clearance will affect therapy, a 24-hour urine creatinine clearance may be advised. Assignment of CKD stage 1 - 5 for patients with an eGFR near the transition point between stages may be based on clinical assessment of muscle mass and symptoms in addition to eGFR. Blood specimen (specimen) 02/14/2021 2:13 PM EDT 02/14/2021 2:30 PM EDT Narrative Resulting Agency Comment Spec In Lab Rolo Wynn MD CHEMISTRY ORDERABLE S [facility] [place] [address] * EKG 12 Lead (02/14/2021 1:14 PM EDT) Ventricular rate 129 BPM MUSE SYSTEM Atrial Rate 258 BPM MUSE SYSTEM QRS Duration 100 ms MUSE SYSTEM Q-T Interval 370 ms MUSE SYSTEM QTC Calculated (Bezet) 542 ms MUSE SYSTEM Calculated R [place] 68 degrees MUSE SYSTEM Calculated T [place] 69 degrees MUSE SYSTEM INTERPRETATION Atrial flutter with 2:1 A-V conduction Nonspecific ST and T wave abnormality Abnormal ECG When compared with ECG of 05-FEB-2021 14:45, Atrial flutter has replaced Sinus rhythm Vent. rate has increased BY ??65 BPM Confirmed by MD De Anda Daniel ([id number]) on 02/15/2021 4:27:28 PM MUSE SYSTEM 02/14/2021 1:14 PM EDT 02/15/2021 4:27 PM EDT Rolo Wynn MD ECG ORDERABLES Performing Organization Address City/[facility] Co de Phone Number MUSE SYSTEM documented in this encounter Visit Diagnoses Diagnosis Atrial flutter- Primary Atrial flutter PAF (paroxysmal atrial fibrillation) Atrial fibrillation Coronary disease Heart palpitations Palpitations Obesity Obesity, unspecified Bipolar disorder Bipolar disorder, unspecified documented in this encounter Admitting Diagnoses Diagnosis Atrial flutter documented in this encounter Administered Medications Inactive Administered Medications - up to 3 most recent administrations Medication Order JAN Action Action Date Dose Rate Site acetaminophen (Tylenol) tablet 1,000 mg 1,000 mg, Oral, EVERY 8 HOURS PRN, Starting on Candi 02/15/21 at 1300, Until 02/17/21 at 1755, Pain, Maximum dose of acetaminophen is 4000 mg from all sources in 24 hours. When ordered for pain, acetaminophen should be given even when other ordered pain medications are indicated. , Routine Given 02/15/2021 9:25 PM EDT 1,000 mg acetaminophen (Tylenol) tablet 650 mg 650 mg, Oral, EVERY 4 HOURS PRN, Starting on Candi 02/15/21 at 0823, Until Candi 02/15/21 at 1120, Pain, Headaches, Maximum dose of acetaminophen is 4000 mg from all sources in 24 hours. When ordered for pain, acetaminophen should be given even when other ordered pain medications are indicated. , Routine Given 02/15/2021 8:49 AM EDT 650 mg adenosine (Adenocard) (3 mg/mL) injection 6 mg 6 mg, Intravenous, ONCE, 1 dose, On Fri02/14/21 at 1540, STAT Given 02/14/2021 3:46 PM EDT 6 mg AMIOdarone (Cordarone) (1.8 mg/mL) in dextrose 5% 200 mL infusion 0.5-1 mg/min (16.6667-33.3333 mL/hr, rounded to 16.7-33.3 mL/hr), Intravenous, CONTINUOUS, Starting on Fri02/14/21 at 2212, Until Fri02/16/21 at 0803, Initiate loading infusion (slow): 1 mg/minute over 6 hours, then decrease to maintenance Infusion: 0.5 mg/minute over 18 hours. At 24 hours from start time, call MD regarding infusion or change to oral dosing. New Bag 02/15/2021 7:18 PM EDT 0.5 mg/min 16.7 mL/hr New Bag 02/15/2021 8:52 AM EDT 0.5 mg/min 16.7 mL/hr Rate/Dose Change 02/15/2021 5:00 AM EDT 0.5 mg/min 16.7 mL /hr AMIOdarone (CORDARONE) bolus from bag 150 mg 150 mg, Intravenous, Administer over 10 Minutes, ONCE, 1 dose, On Fri02/14/21 at 2212, Rapid Load. Bolus from Bag, Routine Bolus from Bag 02/14/2021 11:12 PM EDT 150 mg AMIOdarone (Cordarone; Pacerone) tablet 400 mg 400 mg, Oral, 2 TIMES DAILY, First dose on Fri02/16/21 at 0900, Until Discontinued, Routine Given 02/17/2021 9:14 AM EDT 400 mg Given 02/16/2021 9:29 PM EDT 400 mg Given 02/16/2021 8:20 AM EDT 400 mg apixaban (Eliquis) tablet 5 mg 5 mg, Oral, 2 TIMES DAILY, First dose on Candi 02/15/21 at 1200, Until Discontinued, Anticoagulant, Routine, Restricted anticoagulant, choose the most appropriate response: Approved indication of non-valvular atrial fibrillation Given 02/17/2021 9:15 AM EDT 5 mg Given 02/16/2021 9:29 PM EDT 5 mg Given 02/16/2021 8:18 AM EDT 5 mg aspirin EC tablet 81 mg 81 mg, Oral, DAILY, First dose on Candi 02/15/21 at 0900, Until Discontinued, Routine Given 02/17/2021 9:14 AM EDT 81 mg Given 02/16/2021 8:17 AM EDT 81 mg Given 02/15/2021 8:50 AM EDT 81 mg atorvastatin (Lipitor) tablet 20 mg 20 mg, Oral, EVERY EVENING, First dose on Candi 02/15/21 at 1700, Until Discontinued, Routine Given 02/16/2021 4:57 PM EDT 20 mg Given 02/15/2021 4:14 PM EDT 20 mg clonazePAM (KlonoPIN) tablet 1 mg 1 mg, Oral, 2 TIMES DAILY PRN, Starting on Fri02/14/21 at 2355, Until Fri02/17/21 at 1755, Anxiety, DO NOT SPLIT, CRUSH OR OPEN, Routine Given 02/16/2021 9:35 PM EDT 1 mg Given 02/16/2021 9:37 AM EDT 1 mg Given 02/15/2021 9:25 PM EDT 1 mg colchicine (Colcrys) tablet 0.6 mg 0.6 mg, Oral, DAILY, First dose on Candi 02/15/21 at 0900, Until Discontinued, Maximum dose: 2.4 mg/ 24 hours. DO NOT SPLIT, CRUSH OR OPEN, Routine Given 02/16/2021 8:18 AM EDT 0.6 mg furosemide (Lasix) tablet 20 mg 20 mg, Oral, DAILY, First dose on Candi 02/15/21 at 0900, Until Discontinued, Routine Given 02/17/2021 9:15 AM EDT 20 mg Given 02/16/2021 8:17 AM EDT 20 mg Given 02/15/2021 8:50 AM EDT 20 mg heparin (porcine) 50 units/mL in dextrose 5% 500 mL infusion 0-5,000 Units/hr (0-100 mL/hr), Intravenous, CONTINUOUS, Starting on Candi 02/15/21 at 0045, Until Candi 02/15/21 at 1052, Begin infusion at 1,750 units per hr (15 units/kg/hr). MAX INITIAL infusion rate is 1,750 units/hr Target Heparin UFH Level (anti-Xa activity) = 0.3 - 0.7 IU/mL Start adjustment schedule 6 hours after starting infusion. If Heparin UFH Level is: - less than 0.1 IU/mL, administer PRN bolus and increase rate by 450 units per hr (4 units/kg/hr) - 0.1 - 0.29 IU/mL, administer PRN bolus and increase rate by 250 units per hr (2 units/kg/hr) - 0.3 - 0.7 IU/mL, No Change - 0.71 - 0.85 IU/mL, decrease rate by 100 units per hr (1 units/kg/hr) - 0.86 - 1.05 IU/mL, stop infusion for 30 minutes, then decrease rate by 250 units per hr (2 units/kg/hr) - Greater than 1.05 IU/mL, stop infusion for 60 minutes, then decrease rate by 350 units per hour (3 units/kg/hr) Repeat Heparin UFH Level 6 hours after initiating heparin. Then 6 hours after each dose adjustment. When 2 consecutive Heparin UFH Level within target range of 0.3 - 0.7 IU/mL, change Heparin UFH Level to once every 24 hours with A.M. labs while on heparin. RN to order required Heparin UFH Level - Per Protocol, Routine Restarted 02/15/2021 2:52 AM EDT 1,400 Units/hr 28 mL/hr New Bag 02/15/2021 1:19 AM EDT 1,750 Units/hr 35 mL/hr lamoTRIgine (LaMICtal) tablet 100 mg 100 mg, Oral, NIGHTLY, First dose (after last modification) on Candi 02/15/21 at 0200, Until Discontinued, Routine Given 02/16/2021 9:30 PM EDT 100 mg Given 02/15/2021 9:24 PM EDT 100 mg Given 02/15/2021 1:17 AM EDT 100 mg lidocaine (Lidoderm) 5% topical patch 1 patch 1 patch, Transdermal, EVERY 24 HOURS, First dose on Fri02/15/21 at 1000, Until Discontinued, Apply patch(es) for 12 hours, and then remove for 12 hours., Routine Patch Applied 02/15/2021 10:09 AM EDT 1 patch 07- Back Lower (Left) lidocaine (Lidoderm) topical patch REMOVAL Transdermal, EVERY 24 HOURS, First dose on Fri02/15/21 at 2130, Until Discontinued, Remove lidocaine 5% patch lidocaine (Xylocaine) 1% (10 mg/mL) injection 3 mg 3 mg (0.3 mL), Subcutaneous, ONCE PRN, 1 dose, Starting on Fri02/16/21 at 1045, Until Fri02/17/21 at 1755, for discomfort with PIV insertion, Routine loperamide (Imodium A-D) capsule 4 mg 4 mg, Oral, 4 TIMES DAILY PRN, Starting on Fri02/14/21 at 2355, Until Fri02/17/21 at 1755, Diarrhea, Do not exceed 16 mg/day., Routine Given 02/16/2021 9:37 AM EDT 4 mg metoprolol (LOPRESSOR) injection 5 mg 5 mg, Intravenous, ONCE, 1 dose, On Fri02/14/21 at 1559, STAT Given 02/14/2021 4:05 PM EDT 5 mg metoprolol tartrate (Lopressor) tablet 12.5 mg 12.5 mg, Oral, ONCE, 1 dose, On Fri02/15/21 at 1645, Routine Given 02/15/2021 4:14 PM EDT 12.5 mg metoprolol tartrate (Lopressor) tablet 25 mg 25 mg, Oral, EVERY 12 HOURS SCHEDULED (2 times per day), First dose on Fri02/16/21 at 2100, Until Discontinued, Routine Given 02/17/2021 9:15 AM EDT 25 mg Given 02/16/2021 9:29 PM EDT 25 mg metoprolol tartrate (Lopressor) tablet 50 mg 50 mg, Oral, EVERY 8 HOURS SCHEDULED, First dose on Fri02/15/21 at 0600, Until Discontinued, Hold for HR <60 or SBP<100, Routine Given 02/15/2021 1:21 PM EDT 50 mg Given 02/15/2021 5:21 AM EDT 50 mg metoprolol tartrate (Lopressor) tablet 75 mg 75 mg, Oral, EVERY 8 HOURS SCHEDULED, 1 dose, First dose (after last modification) on Candi 02/15/21 at 2200, Hold for HR <60 or SBP<100, Routine Given 02/15/2021 9:25 PM EDT 75 mg nitroGLYcerin (Nitrostat) disintegrating tablet 0.4 mg 0.4 mg, Sublingual, EVERY 5 MIN PRN, Starting on Fri02/14/21 at 2155, Until 02/17/21 at 1755, Chest pain, May repeat every 5 minutes for a total of three doses. Notify provider if chest pain not relieved with nitroglycerin. Do not administer nitroglycerin if the patient has received or taken phosphodiesterase (PDE-5) inhibitors such as sildenafil, tadalafil or vardenafil within the last 24 to 72 hours., Routine pantoprazole EC (Protonix) tablet 40 mg 40 mg, Oral, DAILY, First dose on Candi 02/15/21 at 0900, Until Discontinued, DO NOT CRUSH OR OPEN, Routine Given 02/17/2021 9:15 AM EDT 40 mg Given 02/16/2021 8:18 AM EDT 40 mg Given 02/15/2021 8:49 AM EDT 40 mg sodium chloride 0.9 % (flush) flush 5 mL 5 mL, Intravenous, 2 TIMES DAILY, First dose on Fri02/14/21 at 2159, Until Discontinued, Routine Given 02/16/2021 9:32 PM EDT 5 mLs Given 02/16/2021 8:22 AM EDT 5 mLs Given 02/15/2021 9:26 PM EDT 5 mLs sodium chloride 0.9 % (flush) flush 5 mL 5 mL, Intravenous, 2 TIMES DAILY, First dose on Fri02/16/21 at 1145, Until Discontinued, Routine Given 02/17/2021 9:16 AM EDT 5 mLs Given 02/16/2021 9:31 PM EDT 5 mLs sodium chloride 0.9 % (flush) flush 5-20 mL 5-20 mL, Intravenous, EVERY 1 MIN PRN, Starting on Fri02/14/21 at 2155, Until 02/17/21 at 1755, flush, Flush pertains to all indwelling lines. Flush per protocol found in the job aid using the link provided on this medication record., Routine sodium chloride 0.9 % (flush) flush 5-20 mL 5-20 mL, Intravenous, EVERY 1 MIN PRN, Starting on Fri02/16/21 at 1045, Until 02/17/21 at 1755, flush, Flush pertains to all indwelling lines. Flush per protocol found in the job aid using the link provided on this medication record., Routine documented in this encounter Active and Recently Administered Medications Times are shown in EDT. Scheduled Medication Order 02/15/2021 02/16/2021 02/17/2021 AMIOdarone (Cordarone; Pacerone) tablet 400 mg 400 mg, Oral, 2 TIMES DAILY, First dose on Fri02/16/21 at 0900, Until Discontinued, Routine 0820 (Given - Provider: Rachana Almonte RN)2128 (Given - Provider: Franco Kerns RN) 913 (Given - Provider: Autmun Cotter RN - Comment: qtc 0.43) apixaban (Eliquis) tablet 5 mg 5 mg, Oral, 2 TIMES DAILY, First dose on Fri02/15/21 at 1200, Until Discontinued, Anticoagulant, Routine, Restricted anticoagulant, choose the most appropriate response: Approved indication of non-valvular atrial fibrillation 1321 (Given - Provider: Luis Alberto Palafox RN)2126 (Given - Provider: Valentin North RN) 08 (Given - Provider: Rachana Almonte RN)2128 (Given - Provider: Franco Kerns RN) 0915 (Given - Provider: Autumn Cotter, FLAVIA) aspirin EC tablet 81 mg 81 mg, Oral, DAILY, First dose on Fri02/15/21 at 0900, Until Discontinued, Routine 0850 (Given - Provider: Luis Alberto Palafox RN) 08 (Given - Provider: Rachana Almonte RN) 0914 (Given - Provider: Autumn Cotter RN) atorvastatin (Lipitor) tablet 20 mg 20 mg, Oral, EVERY EVENING, First dose on Candi /8/21 at 1700, Until Discontinued, Routine 1614 (Given - Provider: Luis Alberto Palafox, FLAVIA) 1657 (Given - Provider: Rachana Almonte, FLAVIA) colchicine (Colcrys) tablet 0.6 mg (CANCELED) 0.6 mg, Oral, DAILY, First dose on Fri02/15/21 at 0900, Until Discontinued, Maximum dose: 2.4 mg/ 24 hours. DO NOT SPLIT, CRUSH OR OPEN, Routine 0849 (Not Given - Provider: Luis Alberto Palafox RN - Reason: Patient/family refused - Comment: Pt said he takes it every other day) 0818 (Given - Provider: Rachana Almonte, FLAVIA) furosemide (Lasix) tablet 20 mg 20 mg, Oral, DAILY, First dose on Fri02/15/21 at 0900, Until Discontinued, Routine 0850 (Given - Provider: Luis Alberto Palafox RN) 0817 (Given - Provider: Rachana Almonte RN) 0915 (Given - Provider: Autumn Cotter, FLAVIA) lamoTRIgine (LaMICtal) tablet 100 mg 100 mg, Oral, NIGHTLY, First dose (after last modification) on Fri02/15/21 at 0200, Until Discontinued, Routine 0117 (Given - Provider: Lashawn Foley RN)2123 (Given - Provider: Valentin North, FLAVIA) 2129 (Given - Provider: Franco Kerns RN) lidocaine (Lidoderm) 5% topical patch 1 patch(Linked Group 1) 1 patch, Transdermal, EVERY 24 HOURS, First dose on Fri02/15/21 at 1000, Until Discontinued, Apply patch(es) for 12 hours, and then remove for 12 hours., Routine 1009 (Patch Applied - Provider: Luis Alberto Palafox RN) 1000 (Not Given - Provider: Rachana Almonte RN - Reason: Patient/family refused) 1000 (Not Given - Provider: Autumn Cotter, FLAVIA - Reason: Patient/family refused) lidocaine (Lidoderm) topical patch REMOVAL(Linked Group 1) Transdermal, EVERY 24 HOURS, First dose on Fri02/15/21 at 2130, Until Discontinued, Remove lidocaine 5% patch 2129 (Patch Removed - Provider: Valentin North RN) 2129 (Patch Not Removed (add comment) - Provider: Franco Kerns RN - Comment: no patch found on patient's body) metoprolol tartrate (Lopressor) tablet 12.5 mg (COMPLETED) 12.5 mg, Oral, ONCE, 1 dose, On Fri02/15/21 at 1645, Routine 1614 (Given - Provider: Luis Alberto Palafox RN) metoprolol tartrate (Lopressor) tablet 25 mg 25 mg, Oral, EVERY 12 HOURS SCHEDULED (2 times per day), First dose on Fri02/16/21 at 2100, Until Discontinued, Routine 212 (Given - Provider: Franco Kerns RN) 0915 (Given - Provider: Autumn Cotter, FLAVIA) metoprolol tartrate (Lopressor) tablet 50 mg (CANCELED) 50 mg, Oral, EVERY 8 HOURS SCHEDULED, First dose on Fri02/15/21 at 0600, Until Discontinued, Hold for HR <60 or SBP<100, Routine 0521 (Given - Provider: Lashawn Foley RN)1321 (Given - Provider: Luis Alberto Palafox RN) metoprolol tartrate (Lopressor) tablet 75 mg (COMPLETED) 75 mg, Oral, EVERY 8 HOURS SCHEDULED, 1 dose, First dose (after last modification) on Fri02/15/21 at 2200, Hold for HR <60 or SBP<100, Routine 212 (Given - Provider: Valentin North, FLAVIA) pantoprazole EC (Protonix) tablet 40 mg 40 mg, Oral, DAILY, First dose on Fri02/15/21 at 0900, Until Discontinued, DO NOT CRUSH OR OPEN, Routine 0849 (Given - Provider: Luis Alberto Palafox RN) 0818 (Given - Provider: Rachana Almonte RN) 0915 (Given - Provider: Autumn Cotter, FLAVIA) sodium chloride 0.9 % (flush) flush 5 mL 5 mL, Intravenous, 2 TIMES DAILY, First dose on Fri02/14/21 at 2159, Until Discontinued, Routine 0851 (Given - Provider: Luis Alberto Palafox RN)212 (Given - Provider: Valentin North RN) 0822 (Given - Provider: Rachana Almonte, FLAVIA)213 (Given - Provider: Franco eK[employer]ns, FLAVIA) 0900 (Not Given - Provider: Autumn Cotter, FLAVIA - Reason: Contraindicated) sodium chloride 0.9 % (flush) flush 5 mL 5 mL, Intravenous, 2 TIMES DAILY, First dose on Fri02/16/21 at 1145, Until Discontinued, Routine 1145 (Not Given - Provider: Rachana Almonte, FLAVIA - Reason: Contraindicated)2130 (Given - Provider: Franco Kerns, FLAVIA) 0916 (Given - Provider: Autumn Cotter, FLAVIA) Continuous Medication Order 02/15/2021 02/16/2021 02/17/2021 AMIOdarone (Cordarone) (1.8 mg/mL) in dextrose 5% 200 mL infusion (CANCELED)(Linked Group 2) 0.5-1 mg/min (16.6667-33.3333 mL/hr, rounded to 16.7-33.3 mL/hr), Intravenous, CONTINUOUS, Starting on Fri02/14/21 at 2212, Until Fri02/16/21 at 0803, Initiate loading infusion (slow): 1 mg/minute over 6 hours, then decrease to maintenance Infusion: 0.5 mg/minute over 18 hours. At 24 hours from start time, call MD regarding infusion or change to oral dosing. 0122 (New Bag - Provider: Lashawn Foley RN)0500 (Rate/Dose Change - Provider: Roe Boyce RN - Comment: rate change)0852 (New Bag - Provider: Luis Alberto Palafox, FLAVIA)1918 (New Bag - Provider: Luis Alberto Palafox, FLAVIA) 0807 (Stopped - Provider: Rachana Almonte, FLAVIA) heparin (porcine) 50 units/mL in dextrose 5% 500 mL infusion (CANCELED)(Linked Group 3) 0-5,000 Units/hr (0-100 mL/hr), Intravenous, CONTINUOUS, Starting on Candi 02/15/21 at 0045, Until Candi 02/15/21 at 1052, Begin infusion at 1,750 units per hr (15 units/kg/hr). MAX INITIAL infusion rate is 1,750 units/hr Target Heparin UFH Level (anti-Xa activity) = 0.3 - 0.7 IU/mL Start adjustment schedule 6 hours after starting infusion. If Heparin UFH Level is: - less than 0.1 IU/mL, administer PRN bolus and increase rate by 450 units per hr (4 units/kg/hr) - 0.1 - 0.29 IU/mL, administer PRN bolus and increase rate by 250 units per hr (2 units/kg/hr) - 0.3 - 0.7 IU/mL, No Change - 0.71 - 0.85 IU/mL, decrease rate by 100 units per hr (1 units/kg/hr) - 0.86 - 1.05 IU/mL, stop infusion for 30 minutes, then decrease rate by 250 units per hr (2 units/kg/hr) - Greater than 1.05 IU/mL, stop infusion for 60 minutes, then decrease rate by 350 units per hour (3 units/kg/hr) Repeat Heparin UFH Level 6 hours after initiating heparin. Then 6 hours after each dose adjustment. When 2 consecutive Heparin UFH Level within target range of 0.3 - 0.7 IU/mL, change Heparin UFH Level to once every 24 hours with A.M. labs while on heparin. RN to order required Heparin UFH Level - Per Protocol, Routine 0119 (New Bag - Provider: Lashawn Foley RN)0147 (Paused - Provider: Lashawn Foley RN)0252 (Restarted - Provider: Lashawn Foley RN)0826 (Stopped - Provider: Luis Alberto Palafox RN) PRN Medication Order 02/15/2021 02/16/2021 02/17/2021 acetaminophen (Tylenol) tablet 1,000 mg 1,000 mg, Oral, EVERY 8 HOURS PRN, Starting on Candi 02/15/21 at 1300, Until 02/17/21 at 1755, Pain, Maximum dose of acetaminophen is 4000 mg from all sources in 24 hours. When ordered for pain, acetaminophen should be given even when other ordered pain medications are indicated. , Routine 2124 (Given - Provider: Valentin North RN) acetaminophen (Tylenol) tablet 650 mg (CANCELED) 650 mg, Oral, EVERY 4 HOURS PRN, Starting on Candi 02/15/21 at 0823, Until Candi 02/15/21 at 1120, Pain, Headaches, Maximum dose of acetaminophen is 4000 mg from all sources in 24 hours. When ordered for pain, acetaminophen should be given even when other ordered pain medications are indicated. , Routine 08 (Given - Provider: Luis Alberto Palafox, RN) clonazePAM (KlonoPIN) tablet 1 mg 1 mg, Oral, 2 TIMES DAILY PRN, Starting on Fri02/14/21 at 2355, Until 02/17/21 at 1755, Anxiety, DO NOT SPLIT, CRUSH OR OPEN, Routine 011 (Given - Provider: Lashawn Foley, FLAVIA)2124 (Given - Provider: Valentin North, RN) 936 (Given - Provider: Rachana Almonte, FLAVIA)2134 (Given - Provider: Franco Kerns RN) lidocaine (Xylocaine) 1% (10 mg/mL) injection 3 mg 3 mg (0.3 mL), Subcutaneous, ONCE PRN, 1 dose, Starting on Fri02/16/21 at 1045, Until 02/17/21 at 1755, for discomfort with PIV insertion, Routine loperamide (Imodium A-D) capsule 4 mg 4 mg, Oral, 4 TIMES DAILY PRN, Starting on Fri02/14/21 at 2355, Until 02/17/21 at 1755, Diarrhea, Do not exceed 16 mg/day., Routine 936 (Given - Provider: Rachana Almonte, FLAVIA) nitroGLYcerin (Nitrostat) disintegrating tablet 0.4 mg 0.4 mg, Sublingual, EVERY 5 MIN PRN, Starting on Fri02/14/21 at 2155, Until 02/17/21 at 1755, Chest pain, May repeat every 5 minutes for a total of three doses. Notify provider if chest pain not relieved with nitroglycerin. Do not administer nitroglycerin if the patient has received or taken phosphodiesterase (PDE-5) inhibitors such as sildenafil, tadalafil or vardenafil within the last 24 to 72 hours., Routine sodium chloride 0.9 % (flush) flush 5-20 mL 5-20 mL, Intravenous, EVERY 1 MIN PRN, Starting on Fri02/14/21 at 2155, Until 02/17/21 at 1755, flush, Flush pertains to all indwelling lines. Flush per protocol found in the job aid using the link provided on this medication record., Routine sodium chloride 0.9 % (flush) flush 5-20 mL 5-20 mL, Intravenous, EVERY 1 MIN PRN, Starting on Fri02/16/21 at 1045, Until 02/17/21 at 1755, flush, Flush pertains to all indwelling lines. Flush per protocol found in the job aid using the link provided on this medication record., Routine Linked Groups Order Group 1: lidocaine (Lidoderm) 5% topical patch 1 patchJump to med 1 patch, Transdermal, EVERY 24 HOURS, First dose on Fri02/15/21 at 1000, Until Discontinued, Apply patch(es) for 12 hours, and then remove for 12 hours., Routine And lidocaine (Lidoderm) topical patch REMOVALJump to med Transdermal, EVERY 24 HOURS, First dose on Fri02/15/21 at 2130, Until Discontinued, Remove lidocaine 5% patch Group 2: AMIOdarone (CORDARONE) bolus from bag 150 mg (COMPLETED) 150 mg, Intravenous, Administer over 10 Minutes, ONCE, 1 dose, On Fri02/14/21 at 2212, Rapid Load. Bolus from Bag, Routine And AMIOdarone (Cordarone) (1.8 mg/mL) in dextrose 5% 200 mL infusion (CANCELED)Jump to med 0.5-1 mg/min (16.6667-33.3333 mL/hr, rounded to 16.7-33.3 mL/hr), Intravenous, CONTINUOUS, Starting on Fri02/14/21 at 2212, Until Fri02/16/21 at 0803, Initiate loading infusion (slow): 1 mg/minute over 6 hours, then decrease to maintenance Infusion: 0.5 mg/minute over 18 hours. At 24 hours from start time, call MD regarding infusion or change to oral dosing. Group 3: heparin (porcine) (1,000 units/mL) injection 0-8,000 Units (CANCELED) 0-8,000 Units, Intravenous, BOLUS PER HEPARIN PROTOCOL, Starting on Fri02/14/21 at 2353, Until Fri02/15/21 at 1052, Per Protocol, START ADJUSTMENT SCHEDULE 6 HOURS AFTER STARTING INFUSION Heparin UFH Level between 0.1 - 0.29 IU/mL: Bolus 4,000 units Heparin UFH Level less than 0.1 IU/mL: Bolus 8,000 units, Routine And heparin (porcine) 50 units/mL in dextrose 5% 500 mL infusion (CANCELED)Jump to med 0-5,000 Units/hr (0-100 mL/hr), Intravenous, CONTINUOUS, Starting on Candi 02/15/21 at 0045, Until Candi 02/15/21 at 1052, Begin infusion at 1,750 units per hr (15 units/kg/hr). MAX INITIAL infusion rate is 1,750 units/hr Target Heparin UFH Level (anti-Xa activity) = 0.3 - 0.7 IU/mL Start adjustment schedule 6 hours after starting infusion. If Heparin UFH Level is: - less than 0.1 IU/mL, administer PRN bolus and increase rate by 450 units per hr (4 units/kg/hr) - 0.1 - 0.29 IU/mL, administer PRN bolus and increase rate by 250 units per hr (2 units/kg/hr) - 0.3 - 0.7 IU/mL, No Change - 0.71 - 0.85 IU/mL, decrease rate by 100 units per hr (1 units/kg/hr) - 0.86 - 1.05 IU/mL, stop infusion for 30 minutes, then decrease rate by 250 units per hr (2 units/kg/hr) - Greater than 1.05 IU/mL, stop infusion for 60 minutes, then decrease rate by 350 units per hour (3 units/kg/hr) Repeat Heparin UFH Level 6 hours after initiating heparin. Then 6 hours after each dose adjustment. When 2 consecutive Heparin UFH Level within target range of 0.3 - 0.7 IU/mL, change Heparin UFH Level to once every 24 hours with A.M. labs while on heparin. RN to order required Heparin UFH Level - Per Protocol, Routine documented in this encounter Care Teams Fitting Room Inspector Relationship Specialty Start Date End Date Bin Bowman MD [address] [place] [id number] PCP - General General Internal Medicine 04/21/1707/11 documented as of this encounter
--- OUTSIDE RECORDS SUMMARY | 2024-06-04 20:43 | XMS_ITS | Encounter Summary ---
Author Organization [facility] Address [facility] [place] [address] Care Team Providers Care Natural Foods Clerk Name Role Phone Bin Bowman MD Primary Care Provider [phone] Encounter Details Date Type Department Care Team (Late st Contact Info) Description 06/01/2021 Orders Only Cardiology at [address] [phone] Fadi Escobar MD [facility] [place] [address] On amiodarone therapy Social History Tobacco Use Types Packs/Day Years [...] 2:00 PM EDT Office [place] [phone] Joan Castro MD [facility] [place] [address] 06/11/2024 1:03 PM EDT Hospital Encounter [place] [address] Rachel Carrasco MD [facility] [place] [address] 06/11/2024 1:03 PM EDT - 06/11/2024 1:58 PM EDT Surgery [place] [phone] Rachel Carrasco MD [facility] [place] [address] CYSTO, REMOVAL OF STENT, FOREIGN BODY OR CALCULUS, SIMPLE (WRVU 2.81) 06/23/2024 10:00 AM EDT Office Visit Cardiology at [address] [place] [address] Mo Horne MD [facility] [place] [address] Scheduled Procedures Name Priority Associated Diagnoses Date/Ti me CYSTO, REMOVAL OF STENT, FOR EIGN BODY OR CALCULUS, SIMPLE (WRVU 2.81) NEPHROLITHIASIS 06/11/2024 1:03 PM EDT documented as of this encounter Results * EKG 12 Lead (07/25/2021 8:34 AM EDT) Ventricular rate 62 BPM MUSE SYSTEM Atrial Rate 62 BPM MUSE SYSTEM P-R Interval 136 ms MUSE SYSTEM QRS Duration 100 ms MUSE SYSTEM Q-T Interval 448 ms MUSE SYSTEM QTC Calculated (Bezet) 454 ms MUSE SYSTEM Calculated P [place] 34 degrees MUSE SYSTEM Calculated R [place] 65 degrees MUSE SYSTEM Calculated T [place] 43 degrees MUSE SYSTEM INTERPRETATION Sinus rhythm with Premature atrial complexes Otherwise normal ECG When compared with ECG of 16-FEB-2021 07:45, Premature atrial complexes are now Present Criteria for Inferior infarct are no longer Present ST no longer depressed in Anterior leads Nonspecific T wave abnormality no longer evident in Anterior leads Confirmed by MD JennieSeveriano ([id number]) on 07/25/2021 1:13:36 PM MUSE SYSTEM 07/25/2021 8:34 AM EDT 07/25/2021 1:13 PM EDT Fadi Escobar MD ECG ORDERABLES MUSE SYSTEM documented in this encounter Visit Diagnoses Diagnosis On amiodarone therapy documented in this encounter Care Teams Natural Foods Clerk Relationship Specialty Start Date End Date Bin Bowman MD [address] [place] [phone] PCP - General General Internal Medicine 04/21/1707/11 documented as of this encounter
--- OUTSIDE RECORDS SUMMARY | 2024-06-04 20:43 | XMS_ITS | Encounter Summary ---
Author Organization [facility] [place] [address] Care Team Providers Care Auto Clocks Repairer Name Role Phone Bin Bowman MD Primary Care Provider Reason for Visit * Reason Onset Date Comments Medication Refill 04/06/2022 Encounter Details Date Type Department Care Team (Late st Contact Info) Description 04/06/2022 Refill Cardiology at [address] [phone] Stephany Cardenas MD [facility] [place] [address] Medication Refill Social History Tobacco Use Types [...] 2:00 PM EDT Office Visit [place] [phone] Joan Castro MD [facility] [place] [address] 06/11/2024 1:03 PM EDT Hospital Encounter [place] [phone] Rachel Carrasco MD [facility] [place] [address] 06/11/2024 1:03 PM EDT - 06/11/2024 1:58 PM EDT Surgery [place] [phone] Rachel Carrasco MD [facility] [place] [address] CYSTO, REMOVAL OF STENT, FOREIGN BODY OR CALCULUS, SIMPLE (WRVU 2.81) 06/23/2024 10:00 AM EDT Office Visit Cardiology at [address] [place] [phone] Mo Horne MD [facility] [place] [address] Scheduled Procedures Name Priority Associated Diagnoses Date/Ti me CYSTO, REMOVAL OF STENT, FOR EIGN BODY OR CALCULUS, SIMPLE (WRVU 2.81) NEPHROLITHIASIS 06/11/2024 1:03 PM EDT documented as of this encounter Visit Diagnoses Not on filedocumented in this encounter Care Teams Auto Clocks Repairer Relationship Specialty Start Date End Date Bin Bowman MD [address] [place] [phone] PCP - General General Internal Medicine 04/21/1707/11 documented as of this encounter
--- OUTSIDE RECORDS SUMMARY | 2024-06-04 20:43 | XMS_ITS | Encounter Summary ---
Author Organization [facility] Address [facility] [place] [address] Care Team Providers Care Yard Manager Name Role Phone Bin Bowman MD Primary Care Provider Encounter Details Date Type Department Care Team (Late st Contact Info) Description 03/14/2021 Refill Cardiology at [address] [phone] Fadi Escobar MD [facility] [place] [address] Social History Tobacco Use Types Packs/Day Years [...] 2:00 PM EDT Office [place] [phone] Joan Castro MD [facility] [place] [address] 06/11/2024 1:03 PM EDT Hospital Encounter [place] [address] Rachel Carrasco MD [facility] [place] [address] 06/11/2024 1:03 PM EDT - 06/11/2024 1:58 PM EDT Surgery [place] [address] Rachel Carrasco MD [facility] [place] [address] CYSTO, REMOVAL OF STENT, FOREIGN BODY OR CALCULUS, SIMPLE (WRVU 2.81) 06/23/2024 10:00 AM EDT Office Visit Cardiology at [address] [phone] Mo Horne MD [facility] [place] [address] Scheduled Procedures Name Priority Associated Diagnoses Date/Ti me CYSTO, REMOVAL OF STENT, FOR EIGN BODY OR CALCULUS, SIMPLE (WRVU 2.81) NEPHROLITHIASIS 06/11/2024 1:03 PM EDT documented as of this encounter Visit Diagnoses Diagnosis Flutter-fibrillation Other premature beats documented in this encounter Care Teams Yard Manager Relationship Specialty Start Date End Date Bin Bowman MD [address] [place] [phone] PCP - General General Internal Medicine 04/21/1707/11 documented as of this encounter
--- OUTSIDE RECORDS SUMMARY | 2024-06-04 20:43 | XMS_ITS | Encounter Summary ---
Author Organization [facility] [place] [address] Care Team Providers Care Hat Model Name Role Phone Bin Bowman MD Primary Care Provider Encounter Details Date Type Department Care Team (Late st Contact Info) Description 03/19/2021 Telephone Cardiology at [address] [phone] Jami Gurrola Social History Tobacco Use Types Packs/Day Years [...] encounter Miscellaneous Notes * Telephone Encounter - Jami Gurrola - 03/19/2021 12:[address] Escobar was looking for this pt's zio report. I was able to touch base with Clarissa Marie and we do not have this report back yet. I have called [facility] and they were going to put a stat on it but were not sure it would be available before the appt time. We have reached out to the pt to let them know and possibly reschedule if he was feeling okay but had to leave them a message on his cell phone. documented in this encounter Plan of Treatment Upcoming Encounters Date Type Department Care Team (Latest Contact Info) Description 06/07/2024 2:00 PM EDT Office Visit [place] [phone] Joan Castro MD [facility] [place] [address] 06/11/2024 1:03 PM EDT Hospital Encounter [place] [address] Rachel Carrasco MD [facility] [place] [address] 06/11/2024 1:03 PM EDT - 06/11/2024 1:58 PM EDT Surgery [place] [phone] Rachel Carrasco MD [facility] [place] [address] CYSTO, REMOVAL OF STENT, FOREIGN BODY OR CALCULUS, SIMPLE (WRVU 2.81) 06/23/2024 10:00 AM EDT Office Visit Cardiology at [address] [place] [address] Mo Horne MD [facility] [place] [address] Scheduled Procedures Name Priority Associated Diagnoses Date/Ti me CYSTO, REMOVAL OF STENT, FOR EIGN BODY OR CALCULUS, SIMPLE (WRVU 2.81) NEPHROLITHIASIS 06/11/2024 1:03 PM EDT documented as of this encounter Visit Diagnoses Not on filedocumented in this encounter Care Teams Hat Model Relationship Specialty Start Date End Date Bin Bowman MD [address] [address] PCP - General General Internal Medicine 04/21/1707/11 documented as of this encounter
--- OUTSIDE RECORDS SUMMARY | 2024-06-04 20:43 | XMS_ITS | Encounter Summary ---
Author Organization [facility] Address [facility] [place] [address] Care Team Providers Care Palliative Nurse Name Role Phone Bin Bowman MD Primary Care Provider Reason for Referral * Diagnostic Test (Routine) - Closed Specialty Diagnoses / Procedures Referred By Contac t Referred To Contact Cardiology Diagnoses PAF (paroxysmal atrial fibrillation) SVT (supraventricular tachycardia) Atrial flutter, unspecified type Procedures Ziopatch 48 Hrs-15 Days Fadi Escobar MD [facility] [address] [facility] [place] [address] Referral ID Status Reason Start Date Expiration Date V isits Requested Visits Authorized [id number] Closed Specialty Service Requested 09/20/2021 12/21/2021 1 1 Encounter Details Date Type Department Care Team (Late st Contact Info) Description 08/29/2021 Orders Only Cardiology at [address] [phone] Fadi Escobar MD [facility] [place] [address] PAF (paroxysmal atrial fibrillation); SVT (supraventricular tachycardia); Atrial flutter, unspecified type Social History Tobacco Use Types [...] 2:00 PM EDT Office [place] [address] Joan Castro MD [facility] [place] [address] 06/11/2024 1:03 PM EDT Hospital Encounter Main Operating Room [place] [phone] Rachel Carrasco MD [facility] [place] [address] 06/11/2024 1:03 PM EDT - 06/11/2024 1:58 PM EDT Surgery [place] [address] Rachel Carrasco MD [facility] [place] [address] CYSTO, REMOVAL OF STENT, FOREIGN BODY OR CALCULUS, SIMPLE (WRVU 2.81) 06/23/2024 10:00 AM EDT Office Visit Cardiology at [address] [phone] Mo Horne MD [facility] [place] [address] Scheduled Procedures Name Priority Associated Diagnoses Date/Ti me CYSTO, REMOVAL OF STENT, FOR EIGN BODY OR CALCULUS, SIMPLE (WRVU 2.81) NEPHROLITHIASIS 06/11/2024 1:03 PM EDT documented as of this encounter Results * Ziopatch 48 Hrs-15 Days (09/20/2021 7:00 AM EST) Anatomical Region Laterality Modality Other Narrative 10/24/2021 8:50 AM EST [facility] ? Zio Patch? Ambulatory Cardiac Event Monitor Report Duration of recording ? 8 days 18 hours Summary Data Predominant rhythm ? sinus rhythm Minimum sinus rate 49 bpm Maximum sinus rate 116 bpm Average heart rate 63 bpm Atrial fibrillation: None Ectopic beats <1% atrial premature beats (APC? s), predominantly isolated, with rare couplets, no triplets and no SVT <1% ventricular premature beats (VPC's), all isolated, with no couplets, no triplets and no NSVT No high grade ectopy, no atrial fibrillation, no pauses, no high grade AV block and no atrial fibrillation Triggered and Patient Diary Events There were 0 triggered and 0 patient diary events: Conclusion(s): ?? 1) Sinus rhythm at average heart rate of 63 bpm 2) No significant ectopy, atrial fibrillation, pauses or AV block 3) No reported symptomatic events Fadi Escobar MD [facility] ORD ERABLES documented in this encounter Visit Diagnoses Diagnosis PAF (paroxysmal atrial fibrillation) Atrial fibrillation SVT (supraventricular tachycardia) Other specified cardiac dysrhythmias Atrial flutter, unspecified type PAF (paroxysmal atrial fibrillation) Atrial fibrillation SVT (supraventricular tachycardia) Other specified cardiac dysrhythmias Atrial flutter, unspecified type documented in this encounter Care Teams Palliative Nurse Relationship Specialty Start Date End Date Bin Bowman MD [address] [place] [id number] PCP - General General Internal Medicine 04/21/1707/11 documented as of this encounter
--- OUTSIDE RECORDS SUMMARY | 2024-06-04 20:43 | XMS_ITS | Encounter Summary ---
Author Organization [facility] [place] [address] Care Team Providers Care Business Professor Name Role Phone Bin Bowman MD Primary Care Provider Reason for Referral * Diagnostic Test (Routine) - Closed Specialty Diagnoses / Procedures Referred By Contac t Referred To Contact Cardiology Diagnoses PAF (paroxysmal atrial fibrillation) SVT (supraventricular tachycardia) Atrial flutter, unspecified type Procedures Ziopatch 48 Hrs-15 Days Fadi Escobar MD [facility] [place] [address] [facility] [place] [address] Referral ID Status Reason Start Date Expiration Date V isits Requested Visits Authorized [id number] Closed Specialty Service Requested 09/20/2021 12/21/2021 1 1 Reason for Visit * Diagnostic Test (Routine) - Closed Specialty Diagnoses / Procedures Referred By Contac t Referred To Contact Cardiology Diagnoses PAF (paroxysmal atrial fibrillation) SVT (supraventricular tachycardia) Atrial flutter, unspecified type Procedures Ziopatch 48 Hrs-15 Days Fadi Escobar MD [facility] [place] [address] [facility] [place] [address] Referral ID Status Reason Start Date Expiration Date V isits Requested Visits Authorized [id number] Closed Specialty Service Requested 09/20/2021 12/21/2021 1 1 Encounter Details Date Type Department Care Team (Latest Contact Info) Description 09/20/2021 6:58 AM EST - 09/20/2021 11:59 PM EST Hospital Encounter Non-Invasive [place] [address] Fadi Escobar MD [facility] [place] [address] PAF (paroxysmal atrial fibrillation); SVT (supraventricular tachycardia); Atrial flutter, unspecified type Discharge Disposition: Home Social History [...] Sig Dispensed Refills Start Date End Date atorvastatin (Lipitor) 20 mg TabletIndications:Hyperl ipidemia, unspecified [...] MOUTH EVERY DAY 90 tablet 08/09/2021 08/06/2022 Eliquis 5 mg TabletIndications:Atrial arrhythmia TAKE ONE TABLET BY MOUTH TWICE A DAY 60 tablet 3 07/12/2021 11/08/2021 pantoprazole EC (Protonix) 40 mg Tablet, Delayed [...] 2:00 PM EDT Office Visit [place] [phone] Joan Castro MD [facility] [place] [address] 06/11/2024 1:03 PM EDT Hospital Encounter [place] [phone] Rachel Carrasco MD [facility] [place] [address] 06/11/2024 1:03 PM EDT - 06/11/2024 1:58 PM EDT Surgery [place] [address] Rachel Carrasco MD [facility] [place] [address] CYSTO, REMOVAL OF STENT, FOREIGN BODY OR CALCULUS, SIMPLE (WRVU 2.81) 06/23/2024 10:00 AM EDT Office Visit Cardiology at [address] [place] [address] Mo Horne MD [facility] [place] [address] Scheduled Procedures Name Priority Associated Diagnoses Date/Ti me CYSTO, REMOVAL OF STENT, FOR EIGN BODY OR CALCULUS, SIMPLE (WRVU 2.81) NEPHROLITHIASIS 06/11/2024 1:03 PM EDT documented as of this encounter Procedures Procedure Name Priority Date/Time Associated Diagnosis Comments ZIOPATCH 48 HRS-15 DAYS Routine 09/20/2021 7:00 AM EST PAF (paroxysmal atrial fibrillation) SVT (supraventricular tachycardia) Atrial flutter, unspecified type documented in this encounter Results * Ziopatch 48 Hrs-15 Days (09/20/2021 7:00 AM EST) Anatomical Region Laterality Modality Other Narrative 10/24/2021 8:50 AM EST [facility] ? Zio Patch? Ambulatory Cardiac Event [...] type documented in this encounter Care Teams Business Professor Relationship Specialty Start Date End Date Bin Bowman MD [address] [place] [id number] PCP - General General Internal Medicine 04/21/1707/11 documented as of this encounter
--- OUTSIDE RECORDS SUMMARY | 2024-06-04 20:43 | XMS_ITS | Encounter Summary ---
Author Organization [facility] [place] [address] Care Team Providers Care Sports Intern Name Role Phone Bin Bowman MD Primary Care Provider Reason for Visit * Reason Onset Date Comments Questions 05/31/2021 Encounter Details Date Type Department Care Team (Late st Contact Info) Description 05/31/2021 Telephone Cardiology at [address] [phone] Lennie Garcia, RN Questions Social History Tobacco Use Types Packs/Day Years [...] encounter Miscellaneous Notes * Telephone Encounter - Lennie Garcia, RN - 05/31/2021 1:41 PM EDT Pt's Autumn calling with questions about medication management Pt was seen in 03/19/[address] Escobar where note stated: Amiodarone 400 mg daily (to be reduced at a later date to 200 mg daily, and this is not intended villa a half-way therapeutic plan) Pt is scheduled for f/u on 07/25/21 & Autumn is wondering when amiodarone should be reduced & to what dosage the reduction should be changed to. Sent communication to Dr. Escobar to ask his expert opinion. Will advise based on recommendation from Dr. Escobar documented in this encounter Plan of Treatment Upcoming Encounters Date Type Department Care Team (Latest Contact Info) Description 06/07/2024 2:00 PM EDT Office Visit Gastroenterology at [place] [phone] Joan Castro MD [facility] [place] [address] 06/11/2024 1:03 PM EDT Hospital Encounter Main Operating Room [place] [phone] Rachel Carrasco MD [facility] [place] [address] 06/11/2024 1:03 PM EDT - 06/11/2024 1:58 PM EDT Surgery [place] [address] Rachel Carrasco MD [facility] [place] [address] CYSTO, REMOVAL OF STENT, FOREIGN BODY OR CALCULUS, SIMPLE (WRVU 2.81) 06/23/2024 10:00 AM EDT Office Visit Cardiology at [address] [place] [address] Mo Horne MD [facility] [place] [address] Scheduled Procedures Name Priority Associated Diagnoses Date/Ti me CYSTO, REMOVAL OF STENT, FOR EIGN BODY OR CALCULUS, SIMPLE (WRVU 2.81) NEPHROLITHIASIS 06/11/2024 1:03 PM EDT documented as of this encounter Visit Diagnoses Not on filedocumented in this encounter Care Teams Sports Intern Relationship Specialty Start Date End Date Bin Bowman MD [address] [place] [phone] PCP - General General Internal Medicine 04/21/1707/11 documented as of this encounter
--- OUTSIDE RECORDS SUMMARY | 2024-06-04 20:43 | XMS_ITS | Encounter Summary ---
Author Organization [facility] [place] [address] Care Team Providers Care Icing Coater Name Role Phone Bin Bowman MD Primary Care Provider Encounter Details Date Type Department Care Team (Late st Contact Info) Description 11/27/2021 Orders Only Cardiology at [address] [phone] Fadi Escobar MD [facility] [place] [address] On amiodarone therapy (Primary Dx); SVT (supraventricular tachycardia); Atrial fibrillation with rapid ventricular response Social History Tobacco Use Types Packs/Day Years [...] 2:00 PM EDT Office Visit [place] [phone] Joan Castro MD [facility] GASTROENTEROLOGY [place], [place] [phone] 06/11/2024 1:03 PM EDT Hospital Encounter Main [place] [phone] Rachel Carrasco MD [facility] [place] [address] 06/11/2024 1:03 PM EDT - 06/11/2024 1:58 PM EDT Surgery Main [place] [phone] Rachel Carrasco MD [facility] [place] [address] CYSTO, REMOVAL OF STENT, FOREIGN BODY OR CALCULUS, SIMPLE (WRVU 2.81) 06/23/2024 10:00 AM EDT Office Visit Cardiology at [address] [place] [phone] Mo Horne MD [facility] [place] [address] Scheduled Procedures Name Priority Associated Diagnoses Date/Ti me CYSTO, REMOVAL OF STENT, FOR EIGN BODY OR CALCULUS, SIMPLE (WRVU 2.81) NEPHROLITHIASIS 06/11/2024 1:03 PM EDT documented as of this encounter Visit Diagnoses Diagnosis On amiodarone therapy- Primary SVT (supraventricular tachycardia) Other specified cardiac dysrhythmias Atrial fibrillation with rapid ventricular response Atrial fibrillation documented in this encounter Care Teams Icing Coater Relationship Specialty Start Date End Date Bin Bowman MD [address] [place] [id number] PCP - General General Internal Medicine 04/21/1707/11 documented as of this encounter
--- OUTSIDE RECORDS SUMMARY | 2024-06-04 20:43 | XMS_ITS | Encounter Summary ---
Author Organization [facility] [place] [address] Care Team Providers Care R And D Lab Technician Name Role Phone Bin Bowman MD Primary Care Provider Reason for Visit * Reason Onset Date Comments Medication Change/management 04/24/2022 Danielle liset Encounter Details Date Type Department Care Team (Late st Contact Info) Description 04/24/2022 Telephone Cardiology at [address] [phone] Fadi Escobar MD [facility] [place] [address] Medication Change/management (Eliquis) Social History Tobacco Use Types Packs/Day Years [...] 2:00 PM EDT Office [place] [phone] Joan Castro MD [facility] [place] [address] 06/11/2024 1:03 PM EDT Hospital Encounter [place] [phone] Rachel Carrasco MD [facility] [place] [address] 06/11/2024 1:03 PM EDT - 06/11/2024 1:58 PM EDT Surgery [place] [phone] Rachel Carrasco MD [facility] [place] [address] CYSTO, REMOVAL OF STENT, FOREIGN BODY OR CALCULUS, SIMPLE (WRVU 2.81) 06/23/2024 10:00 AM EDT Office Visit Cardiology at [address] [place] [phone] Mo Horne MD [facility] [place] [address] Scheduled Procedures Name Priority Associated Diagnoses Date/Ti me CYSTO, REMOVAL OF STENT, FOR EIGN BODY OR CALCULUS, SIMPLE (WRVU 2.81) NEPHROLITHIASIS 06/11/2024 1:03 PM EDT documented as of this encounter Visit Diagnoses Not on filedocumented in this encounter Care Teams R And D Lab Technician Relationship Specialty Start Date End Date Bin Bowman MD [address] [place] [phone] PCP - General General Internal Medicine 04/21/1707/11 documented as of this encounter
--- OUTSIDE RECORDS SUMMARY | 2024-06-04 20:43 | XMS_ITS | Encounter Summary ---
Author Organization [facility] Address [facility] [place] [address] Care Team Providers Care Lawn Mower Sharpener Name Role Phone Bin Bowman MD Primary Care Provider [phone] Encounter Details Date Type Department Care Team (Late st Contact Info) Description 12/05/2021 10:40 AM EST Office Visit Cardiology at [address] [phone] Fadi Escobar MD [facility] [place] [address] Atrial arrhythmia Social History Tobacco Use Types Packs/Day Years [...] Sign Reading Time Taken Comments Blood Pressure 149/88 12/05/2021 10:27 AM EST Pulse 59 12/05/2021 10:27 AM EST Temperature - - Respiratory Rate - - Oxygen Saturation 99% 12/05/2021 10: 27 AM EST Inhaled Oxygen Concentration - - Weight 216.3 kg (476 lb 12.8 oz) 2021 10:27 AM EST Height 167.6 cm (5' 6) 12/05/2021 10:2 7 AM EST Body Mass Index 76.96 12/05/2021 10:27 AM EST documented in this encounter Progress Notes * Fadi Escobar MD - 12/05/2021 10:40 AM EST Cardiac Electrophysiology Clinic [facility] 2021 (last visit July 25, 2021) ?? Aviation Project Engineer: Jose Culver MD Primary Care: Bin Bowman MD ?? Reason for Visit: Follow up Backgound: Mr. Aguilar is a 50 year old gentleman who has had multiple symptomatic episodes of paroxysmal atrial tachycardia +/- fibrillation (AF), with numerous trips to the local emergency room in [facility] for some of those symptomatic episodes. ?? He initially had undergone an electrophysiology study [...] documented, for which he was started on amiodarone. On January 10, 2021, he underwent mapping and ablation of atrial fibrillation, with the acute findings and results summarized in his problem list. Afterward, however, he was noted to have developed a pericardial effusion (especially notable posteriorly), for which a pericardial drain electively was placed the following day (~300 cc of bloody effusion was removed; the drain was removed the following day subsequent to no further re accumulation of effusion. He was discharged the day after that on continued amiodarone and apixaban. He subsequently also was maintained on colchicine and aspirin for a limited time for treatment of pericarditis symptoms. ?? Recent Medical History: He has remained on apixaban 5 mg twice daily, and his dose of amiodarone was reduced to 200 mg daily as of [id number] June. He reported early on having felt a total of 3-4 episodes of brief tachycardia, the longest was of which was <5 minutes duration; the associated symptoms were not severeas they otherwise previously had been when he had episodes pre-ablation, and he has required no further trips to his local emergency department since then (about which both he and his remain pleased). 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 He has struggled, however, with more weight gain. ?? Past Medical History: 1) Cardiac tachydysrhythmias (see above) > Recurrent symptomatic tachycardias (narrow complex, wide complex) in 2020 : Repeat visit to local emergency department : Adenosine-responsive in at least 1 instance : Direct current cardioversions > Diagnostic electrophysiology study, mapping, and ablation (July 10, 2020) : ??Cavotricuspid isthmus dependent atrial flutter elicited, mapped, and ablated (with persiting bidirectional conduction block across the isthmus achieved). : ??Atrioventricular node slow pathway pathway modification for presumed atrioventricular (see details above). : ??No manifest accessory pathway function was observed. : ??No sustained ventricular tachycardia was elicited via ventricular extra- stimulus pacing with upto triple extrastimuli into [address] cycle lengths at two separate sites. > Atrial tachycardia/fibrillation > Diagnostic electrophysiology study, mapping, and ablation (January 10, [...] report regarding portion of isthmus (possibly proximal of the Eustachian ridge).?? : Preserved atrioventricular conduction??with dual [...] to the local emergency room to date). 2) Coronary artery disease [place] [facility] [place]EMMY of OM1) >?LVEF 55-60% >?Aspirin, statin, beta helen 3) Hypertension 4) Dyslipidemia 5) Obesity 6) Obstructive sleep apnea 7) RICARDO 8) Gastroesophageal reflux 9) History of depression and bipolar disorder 10) History of seizure 11) Atypical chest pain (costchondritis, gastroesophageal reflux) 12) Surgeries: > S/p cholecystectomy > S/p tinsillectomy ?? Allergies & Sensitivities: Adenosine, Gabapentin, Wellbutrin [bupropion hcl], and Zoloft [sertraline] Medications: As per eDH (includes amiodarone 200 mg daily, aspirin 81 mg daily, apixaban 5 mg twicedaily, metoprolol succinate 50 mg twice daily, lisinopril 2.5 mg daily, furosemide 20 mg daily, ...) ?? 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 medicinal) noted in records ?? Review of Systems: No history of TIA, stroke, heart failure; no recent complaint of exertional angina, presyncope, syncope, claudication. Remainder of review of systems was unremarkable, other than as noted in the present history. ?? Physical Examination (cursory): Vital Signs: Blood pressure: 149/88 sitting arm (cuff). Pulse: 59/minute, regular Ventilations: 16/minute, unlabored Weight: 216.3 kg dressed (increased) Body mass index: 76.95 kg/m2 General: In no acute distress. Articulate and attentive. Skin: Warm and dry, normal turgor. HEENT: Normocephalic, atraumatic; anicteric sclerae. Neck: No elevated jugulovenous distention upright. Chest: Symmetric chest wall expansion with inspiration. Lungs: Good air movement. Heart: Regular rate. Abdomen: Obese. Extremities: Pulses present. Neurological: Grossly intact. Tests: Transthoracic Echocardiogram (January 31, 2021): Normal ventricular function and structure, EF 65%, mild pulmonary hypertension; 'trivial' pericardial effusion; mildly dilated atria. Zio Monitor (October 04, 2021; analyzed 8 days 18 hours): Sinus rhythm 49- 116/minute, 63/minute; rare ectopy (while yet on amiodarone 200 mg daily) Zio Monitor (February 19, 2021; analyzed 11 days 4 hours): Sinus rhythm 41- 95/minute, 57/minute; rare ectopy (while yet on amiodarone 400 mg daily) Zio [...] burden ofectopy were detected. Stress??Imaging??(March 14, 2019; [facility]):??Moderate size severely intense fixed inferolateraldefect. LVEF 50%. Minimal ischemia. Transthoracic??Echocardiogram??(May 08, 2020):??LVEF 55-60%, moderately dilated left atrium and mildly dilated right atrium. Electrocardiogram (July 25, 2021): Normal sinus rhythm 62/minute, QRS 100 ms, QTc 454 ms. Electrocardiogram??(May 06, 2020; 2:25 PM):??Sinus rhythm 62/minute, conducted atrial ectopy, QRS duration 100 ms, QTc 380 ms, old inferior infarction. Electrocardiogram??(May 06, 2020; 1:40 PM):??Atrial fibrillation 159/minute, old inferior infarction. Electrocardiogram??(May 06, 2020; 1:34 PM):??Atrial fibrillation 159/minute, old inferior infarction. Electrocardiogram??(April 27, 2020):??Sinus rhythm 82/minute, IN 156 m, QRS duration 102 ms, QTc 416ms, old inferior infarction. Chest Radiograph (July 18, 2021): No indication of amiodarone toxicity. Blood Tests (July 19, 2021; [place], [place]): Heaptic enzymes normal (albumin and calcium slight low), TSH mildly elevated at 4.22 uIU/L (upper limit normal range 3.74) ?? Assessment: Subsequent to his January mapping and ablation procedure and initial post-procedure treatment with amiodarone, Mr. Aguilar largely has done well with respect to his rhythm status. Last month the amiodarone dose was reduced to 200 mg daily. We discussed continuing to taper the amiodarone- I advised taking 200 mg 4 days per week as a next step, in addition to repeating thye screening testinfor early signs of amiodarone toxicity (including his retrurning for another ophthlamologic examination soon). Finally, we discussed his struggles weight - he was agreeable to my referring him to [facility] (and he also was made aware that it may take a bit of time to move thatprocess forward, but it certainly is worth a try to do that). ?? His previous mildly elevated TSH was noted again, and this also bears follow up, along with other routines testing to be performed while he continues on amiodarone. ?? I answered all of his questions. Recommendations: 0) Screening due for early signs of amiodarone toxicity (hepatic profile, TSH, renal profile, electrocardiogram) 1) Continue amiodarone 200 mg 4 days/week, and reconsider this next during follow up assessment. > Repeat chest radiograph in next . 2) Zio monitor prior to next visit; review results at the next visit. 3) Follow up in time frame. 4) Expedite referral to [facility]. 5) Follow up sooner prn ____ documented in this encounter Plan of Treatment Upcoming Encounters Date Type Department Care Team (Latest Contact Info) Description 06/07/2024 2:00 PM EDT Office Visit [place] [phone] Joan Castro MD [facility] [place] [address] 06/11/2024 1:03 PM EDT Hospital Encounter Main Operating Room [place] [phone] Rachel Carrasco MD [facility] [place] [address] 06/11/2024 1:03 PM EDT - 06/11/2024 1:58 PM EDT Surgery Main Operating Room [place] [phone] Rachel Carrasco MD [facility] [place] [address] CYSTO, REMOVAL OF STENT, FOREIGN BODY OR CALCULUS, SIMPLE (WRVU 2.81) 06/23/2024 10:00 AM EDT Office Visit Cardiology at [address] [place] [phone] Mo Horne MD [facility] [place] [address] Scheduled Procedures Name Priority Associated Diagnoses Date/Ti me CYSTO, REMOVAL OF STENT, FOR EIGN BODY OR CALCULUS, SIMPLE (WRVU 2.81) NEPHROLITHIASIS 06/11/2024 1:03 PM EDT documented as of this encounter Visit Diagnoses Diagnosis Atrial arrhythmia Cardiac dysrhythmia, unspecified documented in this encounter Care Teams Lawn Mower Sharpener Relationship Specialty Start Date End Date Bin Bowman MD [address] [place] [id number] PCP - General General Internal Medicine 04/21/1707/11 documented as of this encounter
--- OUTSIDE RECORDS SUMMARY | 2024-06-04 20:43 | XMS_ITS | Encounter Summary ---
Author Organization [facility] [place] [address] Care Team Providers Care Salad Bar Clerk Name Role Phone Bin Bowman MD Primary Care Provider [phone] Reason for Visit * Reason Onset Date Comments Medication Refill 05/31/2021 Encounter Details Date Type Department Care Team (Late st Contact Info) Description 05/31/2021 Refill [place] [phone] Harini Jansen MD [facility] [place] [address] Social History Tobacco Use Types Packs/Day Years [...] 2:00 PM EDT Office Visit [place] [phone] Joan Castro MD [facility] [place] [address] 06/11/2024 1:03 PM EDT Hospital Encounter [place] [phone] Rachel Carrasco MD [facility] [place] [address] 06/11/2024 1:03 PM EDT - 06/11/2024 1:58 PM EDT Surgery [place] [phone] Rachel Carrasco MD [facility] [place] [address] CYSTO, REMOVAL OF STENT, FOREIGN BODY OR CALCULUS, SIMPLE (WRVU 2.81) 06/23/2024 10:00 AM EDT Office Visit Cardiology at [address] [place] [phone] Mo Horne MD [facility] [place] [address] Scheduled Procedures Name Priority Associated Diagnoses Date/Ti me CYSTO, REMOVAL OF STENT, FOR EIGN BODY OR CALCULUS, SIMPLE (WRVU 2.81) NEPHROLITHIASIS 06/11/2024 1:03 PM EDT documented as of this encounter Visit Diagnoses Not on filedocumented in this encounter Care Teams Salad Bar Clerk Relationship Specialty Start Date End Date Bin Bowman MD [address] [place] [id number] PCP - General General Internal Medicine 04/21/1707/11 documented as of this encounter
--- OUTSIDE RECORDS SUMMARY | 2024-06-04 20:43 | XMS_ITS | Encounter Summary ---
Author Organization [facility] Address [facility] [place] [address] Care Team Providers Care Industrial Relations Counselor Name Role Phone Bin Bowman MD Primary Care Provider Encounter Details Date Type Department Care Team (Late st Contact Info) Description 07/25/2021 8:20 AM EDT Office Visit Cardiology at [address] [phone] Fadi Escobar MD [facility] [place] [address] On amiodarone therapy; Atrial arrhythmia Social History Tobacco Use Types [...] Sign Reading Time Taken Comments Blood Pressure 135/74 07/25/2021 8:22 AM EDT Pulse 64 07/25/2021 8:22 AM EDT Temperature - - Respiratory Rate - - Oxygen Saturation 99% 07/25/2021 8:22 AM EDT Inhaled Oxygen Concentration - - Weight 202.7 kg (446 lb 12.8 oz) 07/25/2021 8:22 AM EDT Height 167.6 cm (5' 6) 07/25/2021 8:22 AM EDT Body Mass Index 72.12 07/25/2021 8:22 AM EDT documented in this encounter Progress Notes * Fadi Escobar MD - 07/25/2021 8:20 AM EDT Cardiac Electrophysiology [facility] [place] Office July 25, 2021 Technical Architect: Jose Culver MD Primary Care: Bin Bowman MD Reason for Visit: Follow up Backgound: Mr. Aguilar is a 50 year old gentleman who has had multiple symptomatic episodes of paroxysmal atrial tachycardia +/- fibrillation (AF), with numerous trips to the local emergency room in [facility] for some of those symptomatic episodes. He initially had undergone an electrophysiology study [...] pathway also was accomplished during that procedure. Subsequent to that, Mr. Aguilar had more symptomatic tachydysrhythmias, and again sought treatment at his local emergency room, and atrial tachycardia/fibrillation was documented, for which he was started on amiodarone. On January 10, 2021, he underwent mapping and ablation of atrial fibrillation, with the following acute findings and results: > Successful acute electrical isolation of the pulmonary vein antra, and conduction block was achieved across the inferoposterior aspect of the left atrial wall between the electrically isolated pulmonary vein antra. ?? > Mitral annular flutter was elicited and mapped, and ablation of a posterolateral isthmus was accomplished (albeit without having achieved bidirectional conduction block across that entire segment despite delivery of 40-50 montes - ablation via the adjacent portion of the coronary sinus could not be accomplished due to the narrow caliber of that vessel). If this is clinically relevant, then ityet may be approachable once local edema resulting from this ablation effort eventually resolves. ?? > No inferior cavotricuspid isthmus dependent atrial flutter was elicited, and conduction block across the inferior cavotricuspid isthmus was evident (see above description in body of report regarding portion of isthmus (possibly proximal of the Eustachian ridge). ?? > Preserved atrioventricular conduction with dual atrioventricular node physiology. ?? > No finding of an accessory pathway. ?? > The P wave duration post-cardioversion and pre-ablation was prolonged at 140 ms during sinus rhythm; the post-ablation sinus rhythm P wave duration was 120 ms. Afterward, he was noted to have developed a pericardial effusion (especially notable posteriorly), for which a pericardial drain electively was placed the following day (~300 cc of bloody effusion was removed; the drain was removed the following day subsequent to no further re accumulation of effusion. He was discharged the day after that on continued amiodarone and apixaban. He subsequently alsowas maintained on colchicine and aspirin for a limited time for treatment of pericarditis symptoms. Recent Medical History: He has remained on apixaban 5 mg twice daily, and his dose of amiodarone was reduced to 200 mg daily as of [id number] June. He reports having felt a total of 3-4 episodes of brief tachycardia, the longest was of which was <5 minutes duration; the associated symptoms were not severe as they otherwise previously had been when he had episodes pre-ablation, and he has required no further tripsto his local emergency department (about which both he and his were pleased). 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 Past Medical History: 1) Cardiac tachydysrhythmias (see above) > Recurrent symptomatic tachycardias (narrow complex, wide complex) in 2020 : Repeat visit to local emergency department : Adensoine-responsive in at least 1 instance : Direct current cardioversions > Diagnostic electrophysiology study, mapping, and ablation (July 10, 2020) : Cavotricuspid isthmus dependent atrial flutter elicited, mapped, and ablated (with persiting bidirectional conduction block across the isthmus achieved). : Atrioventricular node slow pathway pathway modification for presumed atrioventricular (see details above). : No manifest accessory pathway function was observed. : No sustained ventricular tachycardia was elicited via ventricular extra- stimulus pacing with up to triple extrastimuli into [address] cycle lengths at two separate sites. > Atrial tachycardia/fibrillation > Diagnostic electrophysiology study, mapping, and ablation (see above history) 2) Coronary artery disease >?July 2017 at [facility]: Non-STEMI (EMMY of OM1) >?LVEF 55-60% >?Aspirin, statin, beta helen 3) Hypertension 4) Dyslipidemia 5) Obesity 6) Obstructive sleep apnea 7) RICARDO 8) Gastroesophageal reflux 9) History of depression and bipolar disorder 10) History of seizure 11) Atypical chest pain (costchondritis, gastroesophageal reflux) 12) Surgeries: > S/p cholecystectomy > S/p tinsillectomy Allergies & Sensitivities: Adenosine, Gabapentin, Wellbutrin [bupropion hcl], and Zoloft [sertraline] Medications: As per eDH (includes amiodarone 200 mg daily, aspirin 81 mg daily, apixaban 5 mg twicedaily, metoprolol succinate 50 mg twice daily, lisinopril 2.5 mg daily, furosemide 20 mg daily, ...) 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 Remainder of review of systems was unremarkable, other than as noted in the present history. Physical Examination (cursory): Vital Signs: Blood pressure: 135/74 sitting arm (cuff). Pulse: 64/minute, regular Ventilations: 16/minute, unlabored Weight: 202.7 kg dressed Body mass index: 72.12 kg/m2 General: In no acute distress. Articulate and attentive. Skin: Warm and dry, normal turgor. HEENT: Normocephalic, atraumatic; anicteric sclerae. Neck: No elevated jugulovenous distention upright. Chest: Symmetric chest wall expansion with inspiration. Lungs: Good air movement. Heart: Regular rate. Abdomen: Nondistended. Extremities: Pulses present. Neurological: Grossly intact. Tests: Transthoracic Echocardiogram (January 31, 2021): Normal ventricular function and structure, EF 65%, mild pulmonary hypertension; 'trivial' pericardial effusion; mildly dilated atria. Zio Monitor (February 19, 2021; analyzed 11 days 4 hours): Sinus rhythm 41- 95/minute, 57/minute; rare ectopy (while yet on amiodarone 400 mg daily) Zio Monitor (August 02, 2020; analyzed 13 days 21 hours): > The overall sinus rhythm rate range was 41-127/minute, and averaged 64/minute. The predominantunderlying rhythm throughout the monitoring period was conducted sinus rhythm. The slowest heart rates marginally tended to occur overnight. > No pauses >3 seconds were seen, and there was no high grade atrioventricular conduction block reported or observed at normal sinus rates. > There was a <1.0% burden of isolated ectopic supraventricular beats detected, and rare supraventricular couplets and triplets were detected as well. There were 19 supraventricular runs detected (the run with the fastest interval lasted 7 beats with a maximum rate of 160/minute, and the longest lasted 13 beats at a mean rate of 100/minute); the mean rate of all of these runs was 121/minute. > There was a <1.0% burden of isolated ectopic ventricular beats detected, and a ventricular couplet and a triplet were detected as well. There were no ventricular runs detected. > The patient wrote in 3 timed diary entries for symptoms (variably noting dyspnea, chest pain or pressure, dizziness, and lightheadedness), and there were 5 patient-triggered events; these corresponded to sinus rhythm 64-92/minute. Conclusion: This monitor study was remarkable for sinus rhythm. Occasional nonsustained supraventricular tachycardia runs (without any atrial flutter/fibrillation) and a low overall burden of ectopy were detected. Stress??Imaging??(March 14, 2019; [facility]):??Moderate size severely intense fixed inferolateraldefect. LVEF [...] inferior infarction. Electrocardiogram??(April 27, 2020):??Sinus rhythm 82/minute, KS 156 m, QRS duration 102 ms, QTc 416ms, old inferior infarction. Chest Radiograph (July 18, 2021): No indication of amiodarone toxicity. Blood Tests (July 19, 2021; [place], [place]): Heaptic enzymes normal (albumin and calcium slight low), TSH mildly elevated at 4.22 uIU/L (upper limit normal range 3.74) Assessment: Subsequent to his January mapping and ablation procedure and initial post-procedure treatment with amiodarone, Mr. Jeff hamm has done well with respect to his rhythm status. Last month the amiodarone dose was reduced to 200 mg daily. Today I again reviewed the results of his procedure with him, as well as discussing the post-ablation course that included a pericardiocentesis. I discussed acute procedural findings and potential limitations of that procedure (especially the as yet unknown durability of conduction block elicited along ablation trajectories). He has tolerated the amiodarone well, and so we decided to continue theamiodarone 200 mg daily for now, and otherwise repeat a Zio monitor assessment. Once the results ofthat have been reviewed, we can decide on the discontinuation of amiodarone altogether on a trial basis (versus alternatives, if necessary). His mildly elevated TSH was mentioned, and this also bears follow up, along with other routines testing to be performed while he continues on amiodarone. I answered all of his questions. Recommendations: 1) Continue amiodarone 200 mg daily, and reconsider this early next year during follow up assessment. > Screening for early signs of amiodarone toxicity (hepatic profile, TSH, renal profile, electrocardiogram) > Repeat chest radiograph in ~6 month if still on amiodarone then. 2) Zio monitor prior to next visit; review results at the next visit. 3) Follow up in November/December time frame. 4) Follow up sooner prn ____ documented in this encounter Plan of Treatment Upcoming Encounters Date Type Department Care Team (Latest Contact Info) Description 06/07/2024 2:00 PM EDT Office Visit [place] [phone] Joan Castro MD [facility] [place] [address] 06/11/2024 1:03 PM EDT Hospital Encounter [place] [phone] Rachel Carrasco MD [facility] [place] [address] 06/11/2024 1:03 PM EDT - 06/11/2024 1:58 PM EDT Surgery [place] [phone] Rachel Carrasco MD [facility] [place] [address] CYSTO, REMOVAL OF STENT, FOREIGN BODY OR CALCULUS, SIMPLE (WRVU 2.81) 06/23/2024 10:00 AM EDT Office Visit Cardiology at [address] [phone] Mo Horne MD [facility] [place] [address] Scheduled Procedures Name Priority Associated Diagnoses Date/Ti me CYSTO, REMOVAL OF STENT, FOR EIGN BODY OR CALCULUS, SIMPLE (WRVU 2.81) NEPHROLITHIASIS 06/11/2024 1:03 PM EDT documented as of this encounter Procedures Procedure Name Priority Date/Time Associated Diagnosis Comments EKG 12-LEAD Routine 07/25/2021 8:34 AM EDT On amiodarone therapy documented in this encounter Results * EKG 12 Lead (07/25/2021 8:34 AM EDT) Ventricular rate 62 BPM MUSE SYSTEM Atrial Rate 62 BPM MUSE SYSTEM P-R Interval 136 ms MUSE SYSTEM QRS Duration 100 ms MUSE SYSTEM Q-T Interval 448 ms MUSE SYSTEM QTC Calculated (Bezet) 454 ms MUSE SYSTEM Calculated P [place] 34 degrees MUSE SYSTEM Calculated R [place] 65 degrees MUSE SYSTEM Calculated T [place] 43 degrees MUSE SYSTEM INTERPRETATION Sinus rhythm with Premature atrial complexes Otherwise normal ECG When compared with ECG of 16-FEB-2021 07:45, Premature atrial complexes are now Present Criteria for Inferior infarct are no longer Present ST no longer depressed in Anterior leads Nonspecific T wave abnormality no longer evident in Anterior leads Confirmed by MD Jennie, Severiano ([id number]) on 07/25/2021 1:13:36 PM MUSE SYSTEM 07/25/2021 8:34 AM EDT 07/25/2021 1:13 PM EDT Fadi Escobar MD ECG ORDERABLES MUSE SYSTEM documented in this encounter Visit Diagnoses Diagnosis On amiodarone therapy Atrial arrhythmia Cardiac dysrhythmia, unspecified documented in this encounter Care Teams Industrial Relations Counselor Relationship Specialty Start Date End Date Bin Bowman MD [address] [place] [phone] PCP - General General Internal Medicine 04/21/1707/11 documented as of this encounter
--- OUTSIDE RECORDS SUMMARY | 2024-06-04 20:43 | XMS_ITS | Encounter Summary ---
Author Organization [facility] [place] [address] Care Team Providers Care Supervisor Telephone Answering Service Name Role Phone Bin Bowman MD Primary Care Provider Reason for Visit * Reason Comments Medication Refill Encounter Details Date Type Department Care Team (Late st Contact Info) Description 03/20/2022 Refill Cardiology at [address] [phone] Jag Lopez PA [facility] [place] [address] Medication Refill Social History Tobacco Use Types [...] 2:00 PM EDT Office [place] [phone] Joan Castro MD [facility] [place] [address] 06/11/2024 1:03 PM EDT Hospital Encounter [place] [phone] Rachel Carrasco MD [facility] [place] [address] 06/11/2024 1:03 PM EDT - 06/11/2024 1:58 PM EDT Surgery [place] [phone] Rachel Carrasco MD [facility] [place] [address] CYSTO, REMOVAL OF STENT, FOREIGN BODY OR CALCULUS, SIMPLE (WRVU 2.81) 06/23/2024 10:00 AM EDT Office Visit Cardiology at [address] [phone] Mo Horne MD [facility] [place] [address] Scheduled Procedures Name Priority Associated Diagnoses Date/Ti me CYSTO, REMOVAL OF STENT, FOR EIGN BODY OR CALCULUS, SIMPLE (WRVU 2.81) NEPHROLITHIASIS 06/11/2024 1:03 PM EDT documented as of this encounter Visit Diagnoses Diagnosis Atrial arrhythmia Cardiac dysrhythmia, unspecified documented in this encounter Care Teams Supervisor Telephone Answering Service Relationship Specialty Start Date End Date Bin Bowman MD [address] [place] [phone] PCP - General General Internal Medicine 04/21/1707/11 documented as of this encounter
--- OUTSIDE RECORDS SUMMARY | 2024-06-04 20:43 | XMS_ITS | Encounter Summary ---
Author Organization [facility] [place] [address] Care Team Providers Care Stem Teacher Name Role Phone Bin Bowman MD Primary Care Provider Reason for Visit * Reason Onset Date Comments Diarrhea 02/27/2021 Encounter Details Date Type Department Care Team (Late st Contact Info) Description 02/27/2021 Telephone Cardiology at [address] [phone] Lennie Garcia RN Diarrhea Social History Tobacco Use Types Packs/Day Years [...] Telephone Encounter - Lennie Garcia, RN - 02/27/2021 4:20 PM EDT TC from pt's Autumn regarding medication side effects of colchicine. Pt was having diarrhea as side effect on 02/05 OV w/ MLexie Daley PA-C, instructions were if diarrhea continues to decrease to 0.6 every other day x 3 months Pt is still continuing to have severe diarrhea, discussed w/ M. Thuy - dose can be reduced to 0.3 mg every other day, but they will need tablet sent (rather than capsule) sent to pharmacy for mail order Until receiving new prescription pt will take 0.6 mg every 2 days documented in this encounter Plan of Treatment Upcoming Encounters Date Type Department Care Team (Latest Contact Info) Description 06/07/2024 2:00 PM EDT Office Visit [place] [phone] Joan Castro MD [facility] [place] [address] 06/11/2024 1:03 PM EDT Hospital Encounter [place] [phone] Rachel Carrasco MD [facility] [place] [address] 06/11/2024 1:03 PM EDT - 06/11/2024 1:58 PM EDT Surgery [place] [phone] Rachel Carrasco MD [facility] [place] [address] CYSTO, REMOVAL OF STENT, FOREIGN BODY OR CALCULUS, SIMPLE (WRVU 2.81) 06/23/2024 10:00 AM EDT Office Visit Cardiology at [address] [place] [phone] Mo Horne MD [facility] [place] [address] Scheduled Procedures Name Priority Associated Diagnoses Date/Ti me CYSTO, REMOVAL OF STENT, FOR EIGN BODY OR CALCULUS, SIMPLE (WRVU 2.81) NEPHROLITHIASIS 06/11/2024 1:03 PM EDT documented as of this encounter Visit Diagnoses Not on filedocumented in this encounter Care Teams Stem Teacher Relationship Specialty Start Date End Date Bin Bowman MD [address] [place] [id number] PCP - General General Internal Medicine 04/21/1707/11 documented as of this encounter
--- OUTSIDE RECORDS SUMMARY | 2024-06-04 20:43 | XMS_ITS | Encounter Summary ---
Author Organization [facility] [place] [address] Care Team Providers Care Chemist Enzymes Name Role Phone Bin Bowman MD Primary Care Provider Encounter Details Date Type Department Care Team (Late st Contact Info) Description 03/22/2022 [place] [phone] Joss Painter MD [facility] [place] [address] Social History Tobacco Use Types Packs/Day Years [...] 2:00 PM EDT Office [place] [phone] Joan Castro MD [facility] [place] [address] 06/11/2024 1:03 PM EDT Hospital Encounter [place] [address] Rachel Carrasco MD [facility] [place] [address] 06/11/2024 1:03 PM EDT - 06/11/2024 1:58 PM EDT Surgery [place] [phone] Rachel Carrasco MD [facility] [place] [address] CYSTO, REMOVAL OF STENT, FOREIGN BODY OR CALCULUS, SIMPLE (WRVU 2.81) 06/23/2024 10:00 AM EDT Office Visit Cardiology at [address] [place] [address] Mo Horne MD [facility] [place] [address] Scheduled Procedures Name Priority Associated Diagnoses Date/Ti me CYSTO, REMOVAL OF STENT, FOR EIGN BODY OR CALCULUS, SIMPLE (WRVU 2.81) NEPHROLITHIASIS 06/11/2024 1:03 PM EDT documented as of this encounter Visit Diagnoses Not on filedocumented in this encounter Care Teams Chemist Enzymes Relationship Specialty Start Date End Date Bin Bowman MD [address] [place] [id number] PCP - General General Internal Medicine 04/21/1707/11 documented as of this encounter
--- OUTSIDE RECORDS SUMMARY | 2024-06-04 20:43 | XMS_ITS | Encounter Summary ---
Author Organization [facility] Address [facility] [place] [address] Care Team Providers Care Requirements Manager Name Role Phone Bin Bowman MD Primary Care Provider Reason for Visit * Reason Comments Medication Refill Encounter Details Date Type Department Care Team (Late st Contact Info) Description 11/06/2021 Refill Cardiology at [address] [phone] Fadi Escobar MD [facility] [place] [place] [address] Medication Refill Social History Tobacco Use Types [...] encounter Miscellaneous Notes * Telephone Encounter - Dunia Canales RN - 11/07/2021 9:52 AM EST YULISA: 07/25/2021 Recent Medical History: He has remained on apixaban 5 mg twice daily, and his dose of amiodarone was reduced to 200 mg daily as of [id number] June. He reports having felt a total [...] tattoos, and he otherwise offered no complaints. Recommendations: 1) Continue amiodarone 200 mg daily, and reconsider this early next year during follow up assessment. > Screening for early signs of amiodarone toxicity (hepatic profile, TSH, renal profile, electrocardiogram) > Repeat chest radiograph in ~6 month if still on amiodarone then. 2) Zio monitor prior to next visit; review results at the next visit. 3) Follow up in time frame. 4) Follow up sooner prn F/U appt 12/05/2021 Dunia Canales DNP senior research consultant Clinic at [place] [phone] documented in this encounter Plan of Treatment Upcoming Encounters Date Type Department Care Team (Latest Contact Info) Description 06/07/2024 2:00 PM EDT Office Visit Gastroenterology at [place] [phone] Joan Castro MD [facility] [place] [address] 06/11/2024 1:03 PM EDT Hospital Encounter Main Operating Room [place] [phone] Rachel Carrasco MD [facility] [place] [address] 06/11/2024 1:03 PM EDT - 06/11/2024 1:58 PM EDT Surgery Main Operating Room [place] [phone] Rachel Carrasco MD [facility] [place] [address] CYSTO, REMOVAL OF STENT, FOREIGN BODY OR CALCULUS, SIMPLE (WRVU 2.81) 06/23/2024 10:00 AM EDT Office Visit Cardiology at [address] [place] [phone] Mo Horne MD [facility] [place] [address] Scheduled Procedures Name Priority Associated Diagnoses Date/Ti me CYSTO, REMOVAL OF STENT, FOR EIGN BODY OR CALCULUS, SIMPLE (WRVU 2.81) NEPHROLITHIASIS 06/11/2024 1:03 PM EDT documented as of this encounter Visit Diagnoses Diagnosis Atrial arrhythmia Cardiac dysrhythmia, unspecified documented in this encounter Care Teams Requirements Manager Relationship Specialty Start Date End Date Bin Bowman MD [address] [place] [id number] PCP - General General Internal Medicine 04/21/1707/11 documented as of this encounter
--- OUTSIDE RECORDS SUMMARY | 2024-06-04 20:43 | XMS_ITS | Encounter Summary ---
Author Organization [facility] Address [facility] [place] [address] Care Team Providers Care Scrap Piler Name Role Phone Bin Bowman MD Primary Care Provider Reason for Referral * Diagnostic Test (Routine) - Closed Specialty Diagnoses / Procedures Referred By Contac t Referred To Contact Cardiology Diagnoses PAF (paroxysmal atrial fibrillation) Procedures Ziopatch 48 Hrs-15 Days Fadi Escobar MD [facility] [place] [address] [facility] [place] [address] Referral ID Status Reason Start Date Expiration Date V isits Requested Visits Authorized [id number] Closed Specialty Service Requested 02/19/2021 04/21/2021 1 1 Reason for Visit * Diagnostic Test (Routine) - Closed Specialty Diagnoses / Procedures Referred By Contac t Referred To Contact Cardiology Diagnoses PAF (paroxysmal atrial fibrillation) Procedures Ziopatch 48 Hrs-15 Days Fadi Escobar MD [facility] [place] [address] [facility] [place] [address] Referral ID Status Reason Start Date Expiration Date V isits Requested Visits Authorized [id number] Closed Specialty Service Requested 02/19/2021 04/21/2021 1 1 Encounter Details Date Type Department Care Team (Latest Contact Info) Description 02/19/2021 11:23 AM EDT - 02/19/2021 11:59 PM EDT Hospital Encounter Non-Invasive Cardiology Lab [facility] [place] [address] Fadi Escobar MD [facility] [place] [address] PAF (paroxysmal atrial fibrillation) Discharge Disposition: Home [...] 03/25/2019 03/19/2021 documented as of this encounter Plan of Treatment Upcoming Encounters Date Type Department Care Team (Latest Contact Info) Description 06/07/2024 2:00 PM EDT Office [place] [phone] Joan Castro MD [facility] [address] 06/11/2024 1:03 PM EDT Hospital Encounter [place] [address] Rachel Carrasco MD [facility] [place] [address] 06/11/2024 1:03 PM EDT - 06/11/2024 1:58 PM EDT Surgery [place] [address] Rachel Carrasco MD [facility] [place] [address] CYSTO, REMOVAL OF STENT, FOREIGN BODY OR CALCULUS, SIMPLE (WRVU 2.81) 06/23/2024 10:00 AM EDT Office Visit Cardiology at [address] [place] [phone] Mo Horne MD [facility] [place] [address] Scheduled Procedures Name Priority Associated Diagnoses Date/Ti me CYSTO, REMOVAL OF STENT, FOR EIGN BODY OR CALCULUS, SIMPLE (WRVU 2.81) NEPHROLITHIASIS 06/11/2024 1:03 PM EDT documented as of this encounter Procedures Procedure Name Priority Date/Time Associated Diagnosis Comments ZIOPATCH 48 HRS-15 DAYS Routine 02/19/2021 11:27 AM EDT PAF (paroxysmal atrial fibrillation) documented in this encounter Results * Ziopatch 48 Hrs-15 Days (02/19/2021 11:27 AM EDT) Anatomical Region Laterality Modality Other Narrative 03/21/2021 11:24 AM EDT [facility] ? [facility] Cardiac Event Monitor Report Duration of recording ? ??11 days 4 hours Predominant rhythm: ?sinus ?rhythm Maximum sinus rate: ? 95 bpm Minimum sinus rate: ?? 41 bpm Average heart rate: ??57 bpm Atrial ectopy rare Ventricular ectopy rare Triggered events and diary entries One triggered event which corresponded to a premature ventricular contraction and a ventricular couplet One diary note no symptoms corresponding to sinus at 61 Conclusions: ?? 1. Predominant rhythm is sinus 2. No apparent significant arrhythmias Judy Tijerina MD [facility] See link to pdf document of the primary data under Scans on Order below. Fadi Escobar MD [facility] ORD ERABLES documented in this encounter Visit Diagnoses Diagnosis PAF (paroxysmal atrial fibrillation) Atrial fibrillation documented in this encounter Care Teams Scrap Piler Relationship Specialty Start Date End Date Bin Bowamn MD [address] [address] PCP - General General Internal Medicine 04/21/1707/11 documented as of this encounter
--- OUTSIDE RECORDS SUMMARY | 2024-06-04 20:43 | XMS_ITS | Encounter Summary ---
Author Organization [facility] [place] [address] Care Team Providers Care Card Lacer Jacquard Name Role Phone Bin Bowman MD Primary Care Provider Reason for Visit * Reason Comments Medication Refill Encounter Details Date Type Department Care Team (Late st Contact Info) Description 08/02/2021 Refill Cardiology at [address] [phone] Fadi Escobar MD [facility] [place] [address] Medication Refill Social History Tobacco Use Types [...] 2:00 PM EDT Office [place] [phone] Joan Castro MD [facility] [place] [address] 06/11/2024 1:03 PM EDT Hospital Encounter [place] [phone] Rachel Carrasco MD [facility] [place] [address] 06/11/2024 1:03 PM EDT - 06/11/2024 1:58 PM EDT Surgery [place] [phone] Rachel Carrasco MD [facility] [place] [address] CYSTO, REMOVAL OF STENT, FOREIGN BODY OR CALCULUS, SIMPLE (WRVU 2.81) 06/23/2024 10:00 AM EDT Office Visit Cardiology at [address] [phone] Mo Horne MD [facility] [place] [address] Scheduled Procedures Name Priority Associated Diagnoses Date/Ti me CYSTO, REMOVAL OF STENT, FOR EIGN BODY OR CALCULUS, SIMPLE (WRVU 2.81) NEPHROLITHIASIS 06/11/2024 1:03 PM EDT documented as of this encounter Visit Diagnoses Diagnosis Flutter-fibrillation Other premature beats documented in this encounter Care Teams Card Lacer Jacquard Relationship Specialty Start Date End Date Bin Bowman MD [address] [place] [address] PCP - General General Internal Medicine 04/21/1707/11 documented as of this encounter
--- OUTSIDE RECORDS SUMMARY | 2024-06-04 20:43 | XMS_ITS | Encounter Summary ---
Author Organization [facility] [place] [address] Care Team Providers Care Bakery Worker Conveyor Line Name Role Phone Bin Bowman MD Primary Care Provider [phone] Reason for Visit * Reason Onset Date Comments Medication Refill 03/15/2021 Encounter Details Date Type Department Care Team (Late st Contact Info) Description 03/15/2021 Refill Cardiology at [address] [phone] Mary Daley PA [facility] [place] [address] Medication Refill Social History Tobacco Use Types [...] 2:00 PM EDT Office [place] [address] Joan Castro MD [facility] GASTROENTEROLOGY [place], [place] [phone] 06/11/2024 1:03 PM EDT Hospital Encounter [place] [phone] Rachel Carrasco MD [facility] [place] [address] 06/11/2024 1:03 PM EDT - 06/11/2024 1:58 PM EDT Surgery [place] [phone] Rachel Carrasco MD [facility] [place] [address] CYSTO, REMOVAL OF STENT, FOREIGN BODY OR CALCULUS, SIMPLE (WRVU 2.81) 06/23/2024 10:00 AM EDT Office Visit Cardiology at [address] [place] [address] Mo Horne MD [facility] [place] [address] Scheduled Procedures Name Priority Associated Diagnoses Date/Ti me CYSTO, REMOVAL OF STENT, FOR EIGN BODY OR CALCULUS, SIMPLE (WRVU 2.81) NEPHROLITHIASIS 06/11/2024 1:03 PM EDT documented as of this encounter Visit Diagnoses Not on filedocumented in this encounter Care Teams Bakery Worker Conveyor Line Relationship Specialty Start Date End Date Bin Bowman MD [address] [place] [id number] PCP - General General Internal Medicine 04/21/1707/11 documented as of this encounter
--- OUTSIDE RECORDS SUMMARY | 2024-06-04 20:43 | XMS_ITS | Encounter Summary ---
Author Organization [facility] Address [facility] [place] [address] Care Team Providers Care Java Web Engineer Name Role Phone Bin Bowman MD Primary Care Provider [phone] Encounter Details Date Type Department Care Team (Late st Contact Info) Description 03/19/2021 3:20 PM EDT Office Visit Cardiology at [address] [phone] Fadi Escobar MD [facility] [place] [address] Atrial arrhythmia; Atrial fibrillation with rapid ventricular response Social [...] Sign Reading Time Taken Comments Blood Pressure 134/74 03/19/2021 3:13 PM EDT Pulse 62 03/19/2021 3:13 PM EDT Temperature - - Respiratory Rate 22 03/19/2021 3:13 PM EDT Oxygen Saturation 99% 03/19/2021 3:13 PM EDT Inhaled Oxygen Concentration - - Weight 183.2 kg (403 lb 14.4 oz) 03/19/2021 3:13 PM EDT Height 167.6 cm (5' 6) 03/19/2021 3:13 PM EDT Body Mass Index 65.19 03/19/2021 3:13 PM EDT documented in this encounter Progress Notes * Fadi Escobar MD - 03/19/2021 3:20 PM EDT Cardiac Electrophysiology [facility] [place] Office March 19, 2021 Women'S Basketball Coach: Jose Culver MD Primary Care: Bni Bowman MD Reason for Visit: S/p mapping and ablation of atrial fibrillation complicated by cardiac tamponade Backgound: 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 In June 2020 he underwent an initial electrophysiology study with mapping and catheter ablation procedure, with the following acute findings and results: > Cavotricuspid isthmus dependent atrial flutter elicited, mapped, and ablated (with persiting bidirectional conduction block across the isthmus achieved). > Atrioventricular node slow pathway pathway modification for presumed atrioventricular (see details above). > No manifest accessory pathway function was observed. > No sustained ventricular tachycardia was elicited via ventricular extra- stimulus pacing with up to triple extrastimuli into [address] train cycle lengths at two separate sites. He tolerated that procedure well, and was discharged the following day continued on metoprolol succinate 100 or ? 125 mg twice daily (he has concurrent coronary disease and a history of myocardial infarction). Following that, he initially did well, resulting in an eventual reduction of his metoprolol dose to 50 mg twice daily. By later in October on the reduced metoprolol dose, he again was experiencing symptomatic tachydysrhythmias, and in November and December he went to the local emergency room at least on a couple of occasions for these dysrhythmias, with a finding of atrial flutter/fibrillation during his early December visit. He was started on amiodarone during one of the emergency room visits, and arrangements for an expedited mapping and ablation procedure moved forward. Recent Medical History: On January 10, 2021, he underwent a follow up mapping and ablation of atrial tachycardia/fibrillation (with amiodarone effect likely yet present), with the following acute findings and results: [...] rhythm P wave duration was 120 ms. The day after the procedure, however, he had some pericarditis symptoms and his blood pressure remained below his baseline with a pulse in the 90s/minute; an evaluation revealed that he had a small to moderate effusion, with findings suggestive of early tamponade. Consequently, a pericardial drain was placed with ~300 cc of bloody effusion removed. Per my recollection, after initial an [id number] cc of drainage, there was a trivial effusion evident by echocardiogram the following day. The drain was removed, with no precomputation of fluid, and he was discharged the following day on colchicine, aspirin, and amiodarone (400 mg daily). He went on to have more atrial tachycardia/fibrillation in conjunction with slowly resolving pericarditis symptoms, with rapid conduction at times. It was a difficult month for him due to these issues, and ultimately he was readmitted for more aggressive amiodarone loading, which was when I last saw him (February 17) prior to this visit; he was discharged in sinus rhythm following a reversion to sinus rhythm during the amiodarone reload. He is back for a 1 month follow up visit, having recently worn a [employer] monitor. He reports having done much better over the past month since his discharge from the hospital. He has felt no more symptoms suggestive of atrial flutter/fibrillation, and his pericarditis symptoms largely had resolved by earlier last month. Indeed, his most significant complaint related to diarrhea.. . that issue had improved on a reduced dose of colchicine, but he was interested in whether he needto continue it any longer. Another question he had was about the use of Victoza - he wanted to knowif I had any concerns about his being on this medication (he said that he was interested in this, with the thought that it might facilitate his losing weight - he said that has been pursuing this poss ibility with his primary physician). Past Medical History: 1) Supraventricular tachycardia (see above) 2) Atrial tachycardia/fibrillation (see above) 3) Coronary artery disease > July 2017 at [facility]: Non-STEMI (EMMY of OM1) > LVEF 55-60% > Aspirin, statin, beta helen 4) Atypical chest pain (costchondritis, gastroesophageal reflux) 5) Hypertension 6) Sleep apnea (referral made to Sleep Clinic as of April 2020)) 7) Morbid obesity 8) Bipolar disorder with anxiety 9) RICARDO 0) S/p surgeries > Tonsillectomy > Cholecystectomy? Allergies & Sensitivities: Gabapentin; Wellbutrin [bupropion hcl]; and Zoloft [sertraline] ?? Medications: 1) Metoprolol succinate 150 mg daily 2) Apixaban 5 mg twice daily (initiated April 2020) 3) Lisinopril 2.5 mg daily 4) Amiodarone 400 mg mg daily 5) Lamotrigine 100 mg daily 6) Furosemide 20 mg daily 7) Clonazepam 1 mg twice daily 8) Atorvastatin 20 mg daily 9) Aspirin 81 mg daily 10) Nitroglycerin 0.4 mg sublingual as directed 11) Pantoprazole EC 40 mg daily ?? 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 Family History: Father (hypertension, coronary artery disease), sister (coronary artery disease), brother (hypertension, diabetes, coronary artery disease) ?? Review of Systems: No known history of TIA or stroke, diabetes, heart failure; no complaint of presyncope, syncope, nor claudication. No recent progressive angina. Remainder of review of systems was unremarkable, otherthan as noted in the present. Physical Examination (cursory): Vital Signs: Blood pressure: 134/74 sitting arm (cuff). Pulse: 62/minute, regular Ventilations: 16/minute, unlabored Weight: 183.2 kg dressed Body mass index: 65.19 kg/m2 General: In no acute distress. Articulate and attentive. Skin: Warm and dry, normal turgor. HEENT: Normocephalic, atraumatic; anicteric sclerae. Neck: No elevated jugulovenous distention upright. Chest: Symmetric chest wall expansion with inspiration. Lungs: Good air movement. Heart: Regular rate. Abdomen: Nondistended, obese.. Extremities: Pulses present. Neurological: Grossly intact. Tests: Youth1 [employer] Monitor (February 22, 2021; analyzed 11 days 4 hours): > The overall sinus rhythm rate range was 41-95/minute, and averaged 57/minute. The predominant underlying rhythm throughout the monitoring period was conducted sinus rhythm. The slowest heart rates tended to occur overnight. > No pauses >3 seconds were seen, and there was no high grade atrioventricular conduction block reported or observed at normal sinus rates. > There was a <1.0% burden of isolated ectopic supraventricular beats detected; no supraventricular couplets, triplets, nor runs were detected. > There was a <1.0% burden of isolated ectopic ventricular beats detected; no ventricular couplets, triplets, nor runs were detected. Conclusion: This monitor study was remarkable for sinus rhythm and a low overall burden of ectopy were detected. No atrial tachycardia/fibrillation was detected (on amiodarone therapy, s/p ablation 3months ago). Youth1 [employer] Monitor (August 02, 2020; analyzed 13 days [...] of ectopy were detected. Stress??Imaging??(March 14, 2019; [facility]):??Moderate size severely intense fixed inferolateraldefect. LVEF 50%. Minimal ischemia. Transthoracic??Echocardiogram??(May 08, 2020):??LVEF 55-60%, moderately dilated left atrium and mildly dilated right atrium. Electrocardiogram??(May 06, 2020; 2:25 PM):??Sinus rhythm 62/minute, conducted atrial ectopy, QRS duration 100 ms, QTc 380 ms, old inferior infarction. Electrocardiogram??(May 06, 2020; 1:40 PM):??Atrial fibrillation 159/minute, old inferior infarction. Electrocardiogram??(May 06, 2020; 1:34 PM):??Atrial fibrillation 159/minute, old inferior infarction. Electrocardiogram??(April 27, 2020):??Sinus rhythm 82/minute, ND 156 m, QRS duration 102 ms, QTc 416ms, old inferior infarction. Assessment: The past year, but particularly the past 5-6 months have been rough for Mr. Aguilar. A big part of that has been because of his rapidly conducting conducted dysrhythias. Supraventricular tachycardia, atrial tachycardia/flutter, and atrial fibrillation all have been noted; of note, to the best of my knowledge, no supraventricular tachycardia has been seen since his June 2020 ablation procedure during which his atrioventricular node slow pathway was modified (without having elicited overt atrioventricular node reentrant tachycardia). Typical atrial flutter also was targeted during that June procedure. He subsequently was seen to have more atrial tachycardia/flutter and new rapidly conducted fibrillation, and those were the newly targeted dysrhythmias during his subsequent mapping and ablation procedure in December (though with amiodarone effect present). Acute electrical isolation of the pulmonary veins was achieved at that time, and conduction block was achieved across the inferior aspect of the posterior left atrial wall. In addition, mitral annular flutter was elicited and targeted, but bidirectional conduction block across the left atrial posteriolateral mitral isthmus was not completed acutely (perhaps in part due to excessive local tissue edema as efforts to complete that line of block were pursued). His difficult post-operative course included pericarditis, a ~300 cc pericardial effusion drained the day after his procedure, and rapidly conducted atrial tachycardia/fibrillation. He required aggressive amiodarone reloading to bring this under control as otherwise his post-procedure pericarditis was treated. Over the past month, he at long last has experienced substantial relief, and his symptoms of pericarditis have fully resolved. He yet has experienced diarrhea thought likely the result of his colchicine, despite the dose having been reduced. I think it reasonable for his to discontinue the colchicine at this point. His Zio monitor showed sinus rhythm with a limited rate range, but minimal ectopy and no atrial tachycardia/fibrillation was recorded during this >11 day recording! We further discussed his use ofamiodarone, and the need to monitor him for early signs of toxicity on that medication; the lower the dose, the less likely that problems will emerge. Understandably, for now he is reluctant to make any change on that, but I emphasized that we should be looking at reducing this dose, and eventuallyseek to get him off that medication. In the absence of pericarditis (which by now should be fully resolved), his need for amiodarone for rhythm control should be reduced, and even possibly elimiated.That said, theer yet were limitations to his abalation procedure that targeted atrial fibrillation (question of lesion durability, and the fullposterior left atrfial wall was not isolated electrically) and mitral annular flutter (bidierctional conduction block across the posterolateral mitral isthmus was not achieved). A follow up procedure effectively may address those issues, but for now that is to be avoided, in order to allow his continued recovery and to facilitate an enjoyable spring and summer before further stirring the pot by adjusting down the amiodarone dose. He is becoming more active again, and actively is seeking to lose weight. In response to his question about Victoza, I told him that I do not have particular experience with that medication; in looking up information about it, I did not find any particular contraindication to his using it with regard to his cardiac rhythm status, if his physician otherwise thinks he'd benefit from it. It may be associated with an increase his baseline heart rate, but his sinsu rhythm rates presently while on metoprolol and amiodarone are somewhat suppressed anyway. The other issue would be to be aware that the metoprolol can act to mask symptoms of hypoglycemia elicited by the Victoza. Recommendations: 1) Please see comments about Victoza above 2) Discontinue colchicine 3) Amiodarone 400 mg daily (to be reduced at a later date to 200 mg daily, and this is not intendedto be a long term care administrator therapeutic plan)... monitoring for early signs of amiodarone toxicty remains important: > Renal/hepatic profile and TSH to be obtained in ~2-3 months > Annual ophthalmologic exam > Chest radiograph towards end of year (last image was February 14) > Some of this possibly can be obtained closer to home ([place], [place]) 4) Continue apixaban anticoagulation 5) Follow up ~July, sooner as needed - reconsider reduction amiodarone documented in this encounter Plan of Treatment Upcoming Encounters Date Type Department Care Team (Latest Contact Info) Description 06/07/2024 2:00 PM EDT Office [place] [phone] Joan Castro MD [facility] [place] [address] 06/11/2024 1:03 PM EDT Hospital Encounter [place] [address] Rachel Carrasco MD [facility] [place] [address] 06/11/2024 1:03 PM EDT - 06/11/2024 1:58 PM EDT Surgery [place] [address] Rachel Carrasco MD [facility] [place] [address] CYSTO, REMOVAL OF STENT, FOREIGN BODY OR CALCULUS, SIMPLE (WRVU 2.81) 06/23/2024 10:00 AM EDT Office Visit Cardiology at [address] [address] Mo Horne MD [facility] [place] [address] Scheduled Procedures Name Priority Associated Diagnoses Date/Ti me CYSTO, REMOVAL OF STENT, FOR EIGN BODY OR CALCULUS, SIMPLE (WRVU 2.81) NEPHROLITHIASIS 06/11/2024 1:03 PM EDT documented as of this encounter Visit Diagnoses Diagnosis Atrial arrhythmia Cardiac dysrhythmia, unspecified Atrial fibrillation with rapid ventricular response Atrial fibrillation documented in this encounter Care Teams Java Web Engineer Relationship Specialty Start Date End Date Bin Bowman MD [address] [place] [address] PCP - General General Internal Medicine 04/21/1707/11 documented as of this encounter
--- OUTSIDE RECORDS SUMMARY | 2024-06-04 20:43 | XMS_ITS | Encounter Summary ---
Author Organization [facility] [place] [address] Care Team Providers Care Demand Generation Manager Name Role Phone Bin Bowman MD Primary Care Provider Reason for Visit * Reason Onset Date Comments Medication Refill 05/08/2021 Lipitor Encounter Details Date Type Department Care Team (Late st Contact Info) Description 05/08/2021 Refill Cardiology at [address] [phone] Mary Daley, SONNY [facility] [place] [address] Medication Refill (Lipitor) Social History Tobacco Use Types Packs/Day Years [...] 2:00 PM EDT Office [place] [phone] Joan Castro MD [facility] GASTROENTEROLOGY [place], [place] [phone] 06/11/2024 1:03 PM EDT Hospital Encounter [place] [phone] Rachel Carrasco MD [facility] [place] [address] 06/11/2024 1:03 PM EDT - 06/11/2024 1:58 PM EDT Surgery [place] [phone] Rachel Carrasco MD [facility] [place] [address] CYSTO, REMOVAL OF STENT, FOREIGN BODY OR CALCULUS, SIMPLE (WRVU 2.81) 06/23/2024 10:00 AM EDT Office Visit Cardiology at [address] [place] [phone] Mo Horne MD [facility] [place] [address] Scheduled Procedures Name Priority Associated Diagnoses Date/Ti me CYSTO, REMOVAL OF STENT, FOR EIGN BODY OR CALCULUS, SIMPLE (WRVU 2.81) NEPHROLITHIASIS 06/11/2024 1:03 PM EDT documented as of this encounter Visit Diagnoses Diagnosis Hyperlipidemia, unspecified hyperlipidemia type documented in this encounter Care Teams Demand Generation Manager Relationship Specialty Start Date End Date Bin Bowman MD [address] [place] [address] PCP - General General Internal Medicine 04/21/1707/11 documented as of this encounter
--- OUTSIDE RECORDS SUMMARY | 2024-06-04 20:43 | XMS_ITS | Encounter Summary ---
Author Organization [facility] [place] [address] Care Team Providers Care Brainer Name Role Phone Bin Bowman MD Primary Care Provider Encounter Details Date Type Department Care Team (Late st Contact Info) Description 04/23/2021 Telephone Cardiology at [address] [phone] Ivonne Nicole, RN Social History Tobacco Use Types Packs/Day [...] encounter Miscellaneous Notes * Telephone Encounter - Ivonne Nicole, RN - 04/23/2021 3:21 PM EDT RTC to Mrs Aguilar, regarding message asking about Amiodarone, and steroid interactions. Advised the pharmacist is a good resource, and will need to discuss further. documented in this encounter Plan of Treatment Upcoming Encounters Date Type Department Care Team (Latest Contact Info) Description 06/07/2024 2:00 PM EDT Office [place] [address] Joan Castro MD [facility] [place] [address] 06/11/2024 1:03 PM EDT Hospital Encounter Main Operating Room [place] [phone] Rachel Carrasco MD [facility] [place] [address] 06/11/2024 1:03 PM EDT - 06/11/2024 1:58 PM EDT Surgery Main Operating Room [place] [phone] Rachel Carrasco MD [facility] [address] CYSTO, REMOVAL OF STENT, FOREIGN BODY OR CALCULUS, SIMPLE (WRVU 2.81) 06/23/2024 10:00 AM EDT Office Visit Cardiology at [address] [place] [address] Mo Horne MD [facility] [place] [address] Scheduled Procedures Name Priority Associated Diagnoses Date/Ti me CYSTO, REMOVAL OF STENT, FOR EIGN BODY OR CALCULUS, SIMPLE (WRVU 2.81) NEPHROLITHIASIS 06/11/2024 1:03 PM EDT documented as of this encounter Visit Diagnoses Not on filedocumented in this encounter Care Teams Brainer Relationship Specialty Start Date End Date Bin Bowman MD [address] [place] [phone] PCP - General General Internal Medicine 04/21/1707/11 documented as of this encounter
--- OUTSIDE RECORDS SUMMARY | 2024-06-04 20:43 | XMS_ITS | Encounter Summary ---
Author Organization [facility] Address [facility] [place] [address] Care Team Providers Care Vocational Ed Instructor Name Role Phone Bin Bowman MD Primary Care Provider [phone] Reason for Visit * Reason Comments Medication Refill Encounter Details Date Type Department Care Team (Late st Contact Info) Description 03/20/2022 Refill Cardiology at [address] [phone] Jag Lopez PA [facility] [place] [address] Medication Refill Social History Tobacco Use Types [...] encounter Miscellaneous Notes * Telephone Encounter - Anahy Paulino RN - 03/21/2022 4:32 PM EDT YULISA 12/05/21 with no changes to the requested medications and directions to follow up Sep 2022. Requested Prescriptions Pending Prescriptions Disp Refills ??? Eliquis 5 mg Tablet [Pharmacy Med Name: ELIQUIS 5MG TABS] 60 tablet 3 Sig: TAKE ONE TABLET BY MOUTH TWICE A DAY Anahy Paulino microcomputer technician Clinic at [place] [phone] documented in this encounter Plan of Treatment Upcoming Encounters Date Type Department Care Team (Latest Contact Info) Description 06/07/2024 2:00 PM EDT Office Visit Gastroenterology at [address] Joan Castro MD [facility] [place] [address] 06/11/2024 1:03 PM EDT Hospital Encounter Main Operating Room [place] [address] Rachel Carrasco MD [facility] [place] [address] 06/11/2024 1:03 PM EDT - 06/11/2024 1:58 PM EDT Surgery Main Operating Room [place] [address] Rachel Carrasco MD [facility] [place] [address] CYSTO, REMOVAL OF STENT, FOREIGN BODY OR CALCULUS, SIMPLE (WRVU 2.81) 06/23/2024 10:00 AM EDT Office Visit Cardiology at [address] [place] [address] Mo Horne MD [facility] [place] [address] Scheduled Procedures Name Priority Associated Diagnoses Date/Ti me CYSTO, REMOVAL OF STENT, FOR EIGN BODY OR CALCULUS, SIMPLE (WRVU 2.81) NEPHROLITHIASIS 06/11/2024 1:03 PM EDT documented as of this encounter Visit Diagnoses Diagnosis Atrial arrhythmia Cardiac dysrhythmia, unspecified documented in this encounter Care Teams Vocational Ed Instructor Relationship Specialty Start Date End Date Bin Bowman MD [address] [address] PCP - General General Internal Medicine 04/21/1707/11 documented as of this encounter
--- OUTSIDE RECORDS SUMMARY | 2024-06-04 20:43 | XMS_ITS | Encounter Summary ---
Author Organization [facility] [place] [address] Care Team Providers Care Parimutuel Cashier Name Role Phone Bin Bowman MD Primary Care Provider Reason for Visit * Reason Onset Date Comments Follow-up 02/21/2021 Encounter Details Date Type Department Care Team (Late st Contact Info) Description 02/21/2021 Telephone Cardiology at [address] [phone] Lennie Garcia, RN Follow-up Social History Tobacco Use Types Packs/Day Years [...] Telephone Encounter - Lennie Garcia, RN - 02/21/2021 3:24 PM EDTSummary: Bradycardia TC from pt's spouse Autumn w/ a few questions/concerns. States Bib's BP & HR have been regular, but pulse is running mid 40's - low 50's with accompanying dizziness & spaciness & his BP is low 100's/60's Discussed w/ Dr. Escobar who states that pt should decrease metoprolol from 100 mg BID to 50 mg BID& should adjust amiodarone early to 400 mg QD today rather than waiting until Friday Pt's Autumn was in agreement & verbalized understanding of plan. She is also wondering if Bib is OK to take a probiotic along with his other medications, which I notified them, should be no issue. documented in this encounter Plan of Treatment Upcoming Encounters Date Type Department Care Team (Latest Contact Info) Description 06/07/2024 2:00 PM EDT Office [place] [address] Joan Castro MD [facility] [place] [address] 06/11/2024 1:03 PM EDT Hospital Encounter [place] [phone] Rachel Carrasco MD [facility] [address] 06/11/2024 1:03 PM EDT - 06/11/2024 1:58 PM EDT Surgery [place] [address] Rachel Carrasco MD [facility] [address] CYSTO, REMOVAL OF STENT, FOREIGN BODY OR CALCULUS, SIMPLE (WRVU 2.81) 06/23/2024 10:00 AM EDT Office Visit Cardiology at [address] [address] Mo Horne MD [facility] [place] [address] Scheduled Procedures Name Priority Associated Diagnoses Date/Ti me CYSTO, REMOVAL OF STENT, FOR EIGN BODY OR CALCULUS, SIMPLE (WRVU 2.81) NEPHROLITHIASIS 06/11/2024 1:03 PM EDT documented as of this encounter Visit Diagnoses Not on filedocumented in this encounter Care Teams Parimutuel Cashier Relationship Specialty Start Date End Date Bin Bowman MD [address] [place] [phone] PCP - General General Internal Medicine 04/21/1707/11 documented as of this encounter
--- OUTSIDE RECORDS SUMMARY | 2024-06-04 20:43 | XMS_ITS | Encounter Summary ---
Author Organization [facility] [place] [address] Care Team Providers Care Six Pack Loader Operator Name Role Phone Bin Bowman MD Primary Care Provider Reason for Visit * Reason Onset Date Comments Medication Refill 04/06/2022 Encounter Details Date Type Department Care Team (Late st Contact Info) Description 04/06/2022 Refill Cardiology at [address] [phone] Fadi Escobar MD [facility] [place] [address] Medication Refill Social History Tobacco Use Types [...] 2:00 PM EDT Office Visit [place] [phone] Joan Castro MD [facility] GASTROENTEROLOGY [place], [place] [phone] 06/11/2024 1:03 PM EDT Hospital Encounter [place] [phone] Rachel Carrasco MD [facility] [place] [address] 06/11/2024 1:03 PM EDT - 06/11/2024 1:58 PM EDT Surgery [place] [phone] Rachel Carrasco MD [facility] [place] [address] CYSTO, REMOVAL OF STENT, FOREIGN BODY OR CALCULUS, SIMPLE (WRVU 2.81) 06/23/2024 10:00 AM EDT Office Visit Cardiology at [address] [place] [address] Mo Horne MD [facility] [place] [address] Scheduled Procedures Name Priority Associated Diagnoses Date/Ti me CYSTO, REMOVAL OF STENT, FOR EIGN BODY OR CALCULUS, SIMPLE (WRVU 2.81) NEPHROLITHIASIS 06/11/2024 1:03 PM EDT documented as of this encounter Visit Diagnoses Not on filedocumented in this encounter Care Teams Six Pack Loader Operator Relationship Specialty Start Date End Date Bin Bowman MD [address] [place] [id number] PCP - General General Internal Medicine 04/21/1707/11 documented as of this encounter
--- OUTSIDE RECORDS SUMMARY | 2024-06-04 20:43 | XMS_ITS | Encounter Summary ---
Author Organization [facility] Address [facility] [place] [address] Care Team Providers Care Ceramist Name Role Phone Bin Bowman MD Primary Care Provider Reason for Referral * Diagnostic Test (Routine) - Closed Specialty Diagnoses / Procedures Referred By Contac t Referred To Contact Cardiology Diagnoses PAF (paroxysmal atrial fibrillation) Procedures Ziopatch 48 Hrs-15 Days Fadi Escobar MD [facility] [place] [address] [facility] [place] [address] Referral ID Status Reason Start Date Expiration Date V isits Requested Visits Authorized [id number] Closed Specialty Service Requested 12/27/2021 12/27/2022 1 1 Encounter Details Date Type Department Care Team (Late st Contact Info) Description 12/10/2021 Orders Only Cardiology at [address] [phone] Fadi Escobar MD [facility] [place] [address] PAF (paroxysmal atrial fibrillation) Social History Tobacco [...] 2:00 PM EDT Office Visit Gastroenterology at [place] [phone] Joan Castro MD [facility] [place] [address] 06/11/2024 1:03 PM EDT Hospital Encounter Main Operating Room [place] [phone] Rachel Carrasco MD [facility] [address] 06/11/2024 1:03 PM EDT - 06/11/2024 1:58 PM EDT Surgery Main Operating Room [place] [phone] Rachel Carrasco MD [facility] [place] [address] CYSTO, REMOVAL OF STENT, FOREIGN BODY OR CALCULUS, SIMPLE (WRVU 2.81) 06/23/2024 10:00 AM EDT Office Visit Cardiology at [address] [phone] Mo Horne MD [facility] [place] [address] Scheduled Procedures Name Priority Associated Diagnoses Date/Ti me CYSTO, REMOVAL OF STENT, FOR EIGN BODY OR CALCULUS, SIMPLE (WRVU 2.81) NEPHROLITHIASIS 06/11/2024 1:03 PM EDT documented as of this encounter Results * Ziopatch 48 Hrs-15 Days (07/02/2022 8:16 AM EDT) Anatomical Region Laterality Modality Other Narrative 07/26/2022 5:16 PM EDT [facility] ? Zio Patch? Ambulatory Cardiac Event [...] seconds) or high grade AV block. Fadi Escobar MD CARDIAC SERVICES ORD ERABLES * EKG 12 Lead (06/24/2022 9:44 AM EDT) Ventricular rate 62 BPM MUSE SYSTEM Atrial Rate 62 BPM MUSE SYSTEM P-R Interval 174 ms MUSE SYSTEM QRS Duration 98 ms MUSE SYSTEM Q-T Interval 406 ms MUSE SYSTEM QTC Calculated (Bezet) 412 ms MUSE SYSTEM Calculated P [place] 29 degrees MUSE SYSTEM Calculated R [place] 41 degrees MUSE SYSTEM Calculated T [place] 27 degrees MUSE SYSTEM INTERPRETATION Normal sinus rhythm Normal ECG When compared with ECG of 25-JUL-2021 08:34, Premature atrial complexes are no longer Present Confirmed by MD Cheng, Jose ([id number]) on 06/24/2022 11:29:45 AM MUSE SYSTEM 06/24/2022 9:44 AM EDT 06/24/2022 11:29 AM EDT Fadi Escobar MD ECG ORDERABLES MUSE SYSTEM documented in this encounter Visit Diagnoses Diagnosis PAF (paroxysmal atrial fibrillation) Atrial fibrillation PAF (paroxysmal atrial fibrillation) Atrial fibrillation documented in this encounter Care Teams Ceramist Relationship Specialty Start Date End Date Bin Bowman MD [address] [place] [id number] PCP - General General Internal Medicine 04/21/1707/11 documented as of this encounter
--- OUTSIDE RECORDS SUMMARY | 2024-06-04 20:43 | XMS_ITS | Encounter Summary ---
Author Organization [facility] Address [facility] [place] [address] Care Team Providers Care Environmental Adviser Name Role Phone Bin Bowman MD Primary Care Provider Reason for Visit * Reason Comments Medication Refill Encounter Details Date Type Department Care Team (Late st Contact Info) Description 04/27/2021 Refill Cardiology at [address] [phone] Juan Antonio Mathew PA [facility] [place] [address] Medication Refill Social History Tobacco Use Types [...] encounter Miscellaneous Notes * Telephone Encounter - Evelyn Bishop RN - 04/27/2021 9:50 AM EDT Received prescription refill request for [facility], [address] Refill request for 30 days with 1 refills Reviewed Epic record and last office note from Dr. Escobar dated 03/19/21 Recommendations: 1) Please see comments about Victoza above 2) Discontinue colchicine 3) Amiodarone 400 mg daily (to be reduced at a later date to 200 mg daily, and this is not intendedto be a terminal block assembler therapeutic plan)... monitoring for early signs of amiodarone toxicty remains important: > Renal/hepatic profile and TSH to be obtained in ~2-3 months > Annual ophthalmologic exam > Chest radiograph towards end of year (last image was February 14) > Some of this possibly can be obtained closer to home ([place], [place]) 4) Continue apixaban anticoagulation 5) Follow up ~July, sooner as needed - reconsider reduction amiodarone Refill prepped and forwarded to Provider for authorization FLAVIA Gary documented in this encounter Plan of Treatment Upcoming Encounters Date Type Department Care Team (Latest Contact Info) Description 06/07/2024 2:00 PM EDT Office [place] [address] Joan Castro MD [facility] [place] [address] 06/11/2024 1:03 PM EDT Hospital Encounter Main Operating Room [place] [phone] Rachel Carrasco MD [facility] [place] [address] 06/11/2024 1:03 PM EDT - 06/11/2024 1:58 PM EDT Surgery Main Operating Room [place] [phone] Rachel Carrasco MD [facility] [place] [address] CYSTO, REMOVAL OF STENT, FOREIGN BODY OR CALCULUS, SIMPLE (WRVU 2.81) 06/23/2024 10:00 AM EDT Office Visit Cardiology at [address] [place] [address] Mo Horne MD [facility] [place] [address] Scheduled Procedures Name Priority Associated Diagnoses Date/Ti me CYSTO, REMOVAL OF STENT, FOR EIGN BODY OR CALCULUS, SIMPLE (WRVU 2.81) NEPHROLITHIASIS 06/11/2024 1:03 PM EDT documented as of this encounter Visit Diagnoses Diagnosis Atrial arrhythmia Cardiac dysrhythmia, unspecified documented in this encounter Care Teams Environmental Adviser Relationship Specialty Start Date End Date Bin Bowman MD [address] [place] [address] PCP - General General Internal Medicine 04/21/1707/11 documented as of this encounter
--- OUTSIDE RECORDS SUMMARY | 2024-06-04 20:43 | XMS_ITS | Encounter Summary ---
Author Organization [facility] [place] [address] Care Team Providers Care Stem Assembler Name Role Phone Bin Bowman MD Primary Care Provider Reason for Visit * Reason Onset Date Comments Medication Refill 03/22/2022 Encounter Details Date Type Department Care Team (Late st Contact Info) Description 03/22/2022 Refill Cardiology at [address] [phone] Fadi Escobar MD [facility] [place] [address] Medication Refill Social History Tobacco Use Types [...] 2:00 PM EDT Office Visit [place] [phone] Joan Castro MD [facility] GASTROENTEROLOGY [place], [place] [phone] 06/11/2024 1:03 PM EDT Hospital Encounter [place] [phone] Rachel Carrasco MD [facility] [place] [address] 06/11/2024 1:03 PM EDT - 06/11/2024 1:58 PM EDT Surgery [place] [phone] Rachel Carrasco MD [facility] [place] [address] CYSTO, REMOVAL OF STENT, FOREIGN BODY OR CALCULUS, SIMPLE (WRVU 2.81) 06/23/2024 10:00 AM EDT Office Visit Cardiology at [address] [address] Mo Horne MD [facility] [place] [address] Scheduled Procedures Name Priority Associated Diagnoses Date/Ti me CYSTO, REMOVAL OF STENT, FOR EIGN BODY OR CALCULUS, SIMPLE (WRVU 2.81) NEPHROLITHIASIS 06/11/2024 1:03 PM EDT documented as of this encounter Visit Diagnoses Diagnosis Atrial arrhythmia Cardiac dysrhythmia, unspecified documented in this encounter Care Teams Stem Assembler Relationship Specialty Start Date End Date Bin Bowman MD [address] [place] [address] PCP - General General Internal Medicine 04/21/1707/11 documented as of this encounter
--- OUTSIDE RECORDS SUMMARY | 2024-06-04 20:43 | XMS_ITS | Encounter Summary ---
Author Organization [facility] [place] [address] Care Team Providers Care Solid Waste Collection Worker Name Role Phone Bin Bowman MD Primary Care Provider Reason for Visit * Reason Onset Date Comments Prior Authorization 03/08/2021 colchicine Encounter Details Date Type Department Care Team (Late st Contact Info) Description 03/08/2021 Telephone Cardiology at [address] [phone] Fady Lord RNshrimp pond laborer (colchicine) Social History Tobacco Use Types Packs/Day Years [...] encounter Miscellaneous Notes * Telephone Encounter - Fayd Lord RN - 03/08/2021 7:27 AM EDT Medication Prior Authorization for Cardiology [place] [address] Patient: Rolo Aguilar Patient : 1970 Insurance Plan: [place] Physician: SONNY Hammond Return Medication Requested: Colchicine Strength: 0.6mg Frequency: Every other day Disp.: 45 Refills: 0 Currently Taking ? : Yes If yes, How Lon months Patient's diagnosis for this medication: H/O radiofrequency cardiac ablation ICD code for this diagnosis: Z98.890 Medical necessity for this medication: Yes, Post procedure pericarditis with a pericardial drain Approve: Yes Start Date: 03/14/21 End Date: 03/14/22 Case/Reference #: [id number] documented in this encounter Plan of Treatment Upcoming Encounters Date Type Department Care Team (Latest Contact Info) Description 06/07/2024 2:00 PM EDT Office Visit [place] [phone] Joan Castro MD [facility] [place] [address] 06/11/2024 1:03 PM EDT Hospital Encounter [place] [phone] Rachel Carrasco MD [facility] [address] 06/11/2024 1:03 PM EDT - 06/11/2024 1:58 PM EDT Surgery [place] [phone] Rachel Carrasco MD [facility] [place] [address] CYSTO, REMOVAL OF STENT, FOREIGN BODY OR CALCULUS, SIMPLE (WRVU 2.81) 06/23/2024 10:00 AM EDT Office Visit Cardiology at [address] [address] Mo Horne MD [facility] [place] [address] Scheduled Procedures Name Priority Associated Diagnoses Date/Ti me CYSTO, REMOVAL OF STENT, FOR EIGN BODY OR CALCULUS, SIMPLE (WRVU 2.81) NEPHROLITHIASIS 06/11/2024 1:03 PM EDT documented as of this encounter Visit Diagnoses Not on filedocumented in this encounter Care Teams Solid Waste Collection Worker Relationship Specialty Start Date End Date Bin Bowman MD [address] [place] [address] PCP - General General Internal Medicine 04/21/1707/11 documented as of this encounter
--- OUTSIDE RECORDS SUMMARY | 2024-06-04 20:43 | XMS_ITS | Encounter Summary ---
Author Organization [facility] Address [facility] [place] [address] Care Team Providers Care Elementary Reading Specialist Name Role Phone Bin Bowman MD Primary Care Provider Reason for Visit * Reason Onset Date Comments Medication Refill 04/24/2022 Encounter Details Date Type Department Care Team (Late st Contact Info) Description 04/24/2022 Refill Cardiology at [address] [phone] Jag Lopez PA [facility] [place] [address] Medication Refill Social History Tobacco Use Types [...] encounter Miscellaneous Notes * Telephone Encounter - Kaern Erickson RN - 04/24/2022 8:06 AM EDT Images from the original note were not included. Can we get a new rx for 180 tablets (90 days) for Eliquis sent to Home Delivery pharmacy please?The patient has the same copay for 30 days vs 90 days and with shipping delays, 90 days is easier. Thank you!! Per Dr. Escobar's note on 12/05/21- patient is due for f/u in the fall of 2021. Karen Erickson RN, BSN Ambulatory Cardiology Department \ documented in this encounter Plan of Treatment Upcoming Encounters Date Type Department Care Team (Latest Contact Info) Description 06/07/2024 2:00 PM EDT Office Visit Gastroenterology at [place] [phone] Joan Castro MD [facility] [place] [address] 06/11/2024 1:03 PM EDT Hospital Encounter Main Operating Room [place] [phone] Rachel Carrasco MD [facility] [place] [address] 06/11/2024 1:03 PM EDT - 06/11/2024 1:58 PM EDT Surgery Main Operating Room [place] [phone] Rachel Carrasco MD [facility] [place] [address] CYSTO, REMOVAL OF STENT, FOREIGN BODY OR CALCULUS, SIMPLE (WRVU 2.81) 06/23/2024 10:00 AM EDT Office Visit Cardiology at [address] [place] [address] Mo Horne MD [facility] [address] Scheduled Procedures Name Priority Associated Diagnoses Date/Ti me CYSTO, REMOVAL OF STENT, FOR EIGN BODY OR CALCULUS, SIMPLE (WRVU 2.81) NEPHROLITHIASIS 06/11/2024 1:03 PM EDT documented as of this encounter Visit Diagnoses Diagnosis Atrial flutter, unspecified type- Primary documented in this encounter Care Teams Elementary Reading Specialist Relationship Specialty Start Date End Date Bin Bowman MD [address] [place] [id number] PCP - General General Internal Medicine 04/21/1707/11 documented as of this encounter
--- OUTSIDE RECORDS SUMMARY | 2024-06-04 20:43 | XMS_ITS | Encounter Summary ---
Author Organization [facility] Address [facility] [place] [address] Care Team Providers Care Curtain Drier Name Role Phone Bin Bowman MD Primary Care Provider [phone] Reason for Referral * Consultation (Routine) - Closed Specialty Diagnoses / Procedures Referred By Zeyad mishra Referred To Contact Weight and Wellness Diagnoses Class 3 severe obesity with body mass index (BMI) greater than or equal to 70 in adult, unspecified obesity type, unspecified whether serious comorbidity present Fadi Escobar MD [facility] [place] [address] [facility] [address] [place] [address] Referral ID Status Reason Start Date Expiration Date V isits Requested Visits Authorized [id number] Closed Consult, Test & Treat 12/27/2021 12/27/2022 1 1 Encounter Details Date Type Department Care Team (Late st Contact Info) Description 12/10/2021 Orders Only Cardiology at [address] [phone] Fadi Escobar MD [facility] [place] [address] Class 3 severe obesity with body mass index (BMI) greater than or equal to 70 in adult, unspecified obesity type, unspecified whether serious comorbidity present Social History Tobacco Use Types Packs/Day [...] 2:00 PM EDT Office [place] [phone] Joan Castro MD [facility] [place] [address] 06/11/2024 1:03 PM EDT Hospital Encounter Main Operating Room [place] [phone] Rachel Carrasco MD [facility] [place] [address] 06/11/2024 1:03 PM EDT - 06/11/2024 1:58 PM EDT Surgery [place] [address] Rachel Carrasco MD [facility] [place] [address] CYSTO, REMOVAL OF STENT, FOREIGN BODY OR CALCULUS, SIMPLE (WRVU 2.81) 06/23/2024 10:00 AM EDT Office Visit Cardiology at [address] [phone] Mo Horne MD [facility] [place] [address] Scheduled Procedures Name Priority Associated Diagnoses Date/Ti [...] as of this encounter Visit Diagnoses Diagnosis Class 3 severe obesity with body mass index (BMI) greater than or equal to 70 in adult, unspecified obesity type, unspecified whether serious comorbidity present documented in this encounter Care Teams Curtain Drier Relationship Specialty Start Date End Date Bin Bowman MD [address] [place] [address] PCP - General General Internal Medicine 04/21/1707/11 documented as of this encounter
--- OUTSIDE RECORDS SUMMARY | 2024-06-04 20:43 | XMS_ITS | Encounter Summary ---
Author Organization [facility] Address [facility] [place] [address] Care Team Providers Care Bus Person Dishwasher Name Role Phone Bin Bowman MD Primary Care Provider [phone] Reason for Visit * Reason Comments Medication Refill Eliquis Encounter Details Date Type Department Care Team (Late st Contact Info) Description 07/07/2021 Refill Cardiology at [address] [phone] Juan Antonio Mathew PA [facility] [place] [address] Medication Refill (Eliquis) Social History Tobacco Use Types Packs/Day [...] 2:00 PM EDT Office Visit [place] [phone] Joan Castro MD [facility] [place] [address] 06/11/2024 1:03 PM EDT Hospital Encounter [place] [phone] Rachel Carrasco MD [facility] [place] [address] 06/11/2024 1:03 PM EDT - 06/11/2024 1:58 PM EDT [place] [phone] Rachel Carrasco MD [facility] [place] [address] CYSTO, REMOVAL OF STENT, FOREIGN BODY OR CALCULUS, SIMPLE (WRVU 2.81) 06/23/2024 10:00 AM EDT Office Visit Cardiology at [address] [phone] Mo Horne MD [facility] [place] [address] Scheduled Procedures Name Priority Associated Diagnoses Date/Ti me CYSTO, REMOVAL OF STENT, FOR EIGN BODY OR CALCULUS, SIMPLE (WRVU 2.81) NEPHROLITHIASIS 06/11/2024 1:03 PM EDT documented as of this encounter Visit Diagnoses Diagnosis Atrial arrhythmia Cardiac dysrhythmia, unspecified documented in this encounter Care Teams Bus Person Dishwasher Relationship Specialty Start Date End Date Bin Bowman MD [address] [place] [address] PCP - General General Internal Medicine 04/21/1707/11 documented as of this encounter
--- OUTSIDE RECORDS SUMMARY | 2024-06-04 20:43 | XMS_ITS | Encounter Summary ---
Author Organization [facility] Address [facility] [place] [address] Care Team Providers Care Cake Icer And Packer Name Role Phone Bin Bowman MD Primary Care Provider [phone] Reason for Visit * Reason Comments Medication Refill Encounter Details Date Type Department Care Team (Late st Contact Info) Description 08/02/2021 Refill Cardiology at [address] [address] Mary Daley PA [facility] [place] [address] Medication Refill Social History Tobacco Use Types [...] Telephone Encounter - Anahy Paulino RN - 08/02/2021 11:19 AM EDT YULISA: 07/25/[address] Escobar, note incomplete at this time. Ref. Range 2020 03:11 Chol, Total Latest Units: mg/dL 89 HDL Latest Units: mg/dL 35 Chol/HDL Ratio Latest Units: ratio 2.5 Triglycerides Latest Units: mg/dL 75 LDL Cholesterol Latest Units: mg/dL 39 Next f/u visit scheduled for: not scheduled yet Anahy Paulino machine silver stripper Clinic at [place] [phone] documented in this encounter Plan of Treatment Upcoming Encounters Date Type Department Care Team (Latest Contact Info) Description 06/07/2024 2:00 PM EDT Office Visit Gastroenterology at [address] Joan Castro MD [facility] [place] [address] 06/11/2024 1:03 PM EDT Hospital Encounter Main Operating Room [place] [address] Rachel Carrasco MD [facility] [place] [address] 06/11/2024 1:03 PM EDT - 06/11/2024 1:58 PM EDT Surgery Main Operating Room [place] [address] Rachel Carrasco MD [facility] [place] [address] CYSTO, REMOVAL OF STENT, FOREIGN BODY OR CALCULUS, SIMPLE (WRVU 2.81) 06/23/2024 10:00 AM EDT Office Visit Cardiology at [address] [place] [address] Mo Horne MD [facility] [place] [address] Scheduled Procedures Name Priority Associated Diagnoses Date/Ti me CYSTO, REMOVAL OF STENT, FOR EIGN BODY OR CALCULUS, SIMPLE (WRVU 2.81) NEPHROLITHIASIS 06/11/2024 1:03 PM EDT documented as of this encounter Visit Diagnoses Diagnosis Hyperlipidemia, unspecified hyperlipidemia type documented in this encounter Care Teams Cake Icer And Packer Relationship Specialty Start Date End Date Bin Bowman MD [address] [place] [address] PCP - General General Internal Medicine 04/21/1707/11 documented as of this encounter
--- OUTSIDE RECORDS SUMMARY | 2024-06-04 20:43 | XMS_ITS | Encounter Summary ---
Author Organization [facility] Address [facility] [place] [address] Care Team Providers Care Backhoe Operator Name Role Phone Bin Bowman MD Primary Care Provider Encounter Details Date Type Department Care Team (Late st Contact Info) Description 04/05/2021 Orders Only Cardiology at [address] [phone] Fadi Escobar MD [facility] [place] [address] On amiodarone therapy Social History Tobacco Use [...] 2:00 PM EDT Office [place] [phone] Joan Castro MD [facility] [place] [address] 06/11/2024 1:03 PM EDT Hospital Encounter [place] [address] Rachel Carrasco MD [facility] [place] [address] 06/11/2024 1:03 PM EDT - 06/11/2024 1:58 PM EDT Surgery [place] [address] Rachel Carrasco MD [facility] [place] [address] CYSTO, REMOVAL OF STENT, FOREIGN BODY OR CALCULUS, SIMPLE (WRVU 2.81) 06/23/2024 10:00 AM EDT Office Visit Cardiology at [address] [place] [address] Mo Horne MD [facility] [place] [address] Scheduled Procedures Name Priority Associated Diagnoses Date/Ti me CYSTO, REMOVAL OF STENT, FOR EIGN BODY OR CALCULUS, SIMPLE (WRVU 2.81) NEPHROLITHIASIS 06/11/2024 1:03 PM EDT documented as of this encounter Visit Diagnoses Diagnosis On amiodarone therapy documented in this encounter Care Teams Backhoe Operator Relationship Specialty Start Date End Date Bin Bowman MD [address] [place] [address] PCP - General General Internal Medicine 04/21/1707/11 documented as of this encounter
--- OUTSIDE RECORDS SUMMARY | 2024-06-04 20:44 | XMS_ITS | Encounter Summary ---
Author Organization [facility] [place] [address] Care Team Providers Care Watch Technician Name Role Phone Bin Bowman MD Primary Care Provider [phone] Reason for Visit * - Closed Specialty Diagnoses / Procedures Referred By Zeyad mishra Referred To Contact Procedures Film Library- Storage Only DX Chest Bin Bowman MD [address] [place] [address] Referral ID Status Reason Start Date Expiration Date Visits Re quested Visits Authorized [id number] Closed 01/23/2021 01/23/2022 1 1 Encounter Details Date Type Department Care Team (Late st Contact Info) Description 01/23/2021 4:20 PM EDT Ancillary Procedure [place] [address] Bin Bowman MD [address] [place] [address] Social History Tobacco Use Types Packs/Day Years Used Date Smoking Tobacco: Former Cigarettes Q uit: 2014 Smokeless Tobacco: Former Chew Alcohol Use [...] 2:00 PM EDT Office Visit [place] [phone] Joan Castro MD [facility] [place] [address] 06/11/2024 1:03 PM EDT Hospital Encounter [place] [phone] Rachel Carrasco MD [facility] [place] [address] 06/11/2024 1:03 PM EDT - 06/11/2024 1:58 PM EDT Surgery [place] [phone] Rachel Carrasco MD [facility] [place] [address] CYSTO, REMOVAL OF STENT, FOREIGN BODY OR CALCULUS, SIMPLE (WRVU 2.81) 06/23/2024 10:00 AM EDT Office Visit Cardiology at [address] [phone] Mo Horne MD [facility] [place] [address] Scheduled Procedures Name Priority Associated Diagnoses Date/Ti me CYSTO, REMOVAL OF STENT, FOR EIGN BODY OR CALCULUS, SIMPLE (WRVU 2.81) NEPHROLITHIASIS 06/11/2024 1:03 PM EDT documented as of this encounter Procedures Procedure Name Priority Date/Time Associated Diagnosis Comments FILM LIBRARY STORAGE ONLY DX CHEST Routine 01/23/2021 4:17 PM EDT documented in this encounter Results * Film Library- Storage Only DX Chest (01/23/2021 4:17 PM EDT) Narrative RAD - 01/23/2021 4:17 PM EDT This exam is auto-finalizing. It's purpose is for storage only. Bin Bowman MD IMG FILM LIBRARY ORD ERABLES [place], [place] documented in this encounter Visit Diagnoses Not on filedocumented in this encounter Care Teams Watch Technician Relationship Specialty Start Date End Date Bin Bowman MD [address] [place] [address] PCP - General General Internal Medicine 04/21/1707/11 documented as of this encounter
--- OUTSIDE RECORDS SUMMARY | 2024-06-04 20:44 | XMS_ITS | Encounter Summary ---
Author Organization [facility] Address [facility] [place] [address] Care Team Providers Care Upholstery Trimmer Name Role Phone Bin Bowman MD Primary Care Provider Encounter Details Date Type Department Care Team (Late st Contact Info) Description 02/12/2021 [place] [phone] Donal Bennett MD [facility] [place] [address] Social History Tobacco Use Types Packs/Day Years Used Date Smoking Tobacco: Former Cigarettes Q uit: 2013 Smokeless Tobacco: Former Chew Alcohol Use Standard Drinks/Week Comments No 0 (1 standard drink = 0.6 oz pur e alcohol) Sex and Gender Information Value Date Recorded Sex Assigned at Not on file Gender Identity Male 02/14/2021 11:07 PM EDT Sexual Orientation Not on file documented as of this encounter Miscellaneous Notes * Telephone Encounter - Donal Bennett MD - 02/12/2021 6:22 AM EDT Images from the original note were not included. Consult for AF with RVR. [facility]. Hx 50 year old male well known to the EP service history of atrial flutter s/p CTI ablation in July 2020, atrial fibrillation s/p PVI and posterior LA wall isolation on 01/10/21(c/b tamponade), anticoagulated with Eliquis, ASCVD (s/p NSTEMI, EMMY to OM1 in 07/2017), HTN, sleep apnea, RICARDO, and obesity presented to [facility] with symptomatic AF with RVR. Rates initially in 160's, improved with 3x IV metoprolol. Rates are now better in 120's, but he is still symptomatic. He has been on amiodarone as an outpatient. He has not missed doses of anticoagulation. He is otherwise hemodynamically stable. Rhythm most likely course AF. Awaiting more strips. A/P: Due to symptomatic AF already loaded with amiodarone, he will undergo DCCV in the [facility] ED. Likely discharge home after without medication changes. I will inform EP team to discuss long termplan for atrial fibrillation. Donal Bennett MD [facility]. documented in this encounter Plan of Treatment Upcoming Encounters Date Type Department Care Team (Latest Contact Info) Description 06/07/2024 2:00 PM EDT Office Visit Gastroenterology at [place] [phone] Joan Castro MD [facility] [place] [address] 06/11/2024 1:03 PM EDT Hospital Encounter Main Operating Room [place] [phone] Rachel Carrasco MD [facility] [place] [address] 06/11/2024 1:03 PM EDT - 06/11/2024 1:58 PM EDT Surgery Main Operating Room [place] [phone] Rachel Carrasco MD [facility] [place] [address] CYSTO, REMOVAL OF STENT, FOREIGN BODY OR CALCULUS, SIMPLE (WRVU 2.81) 06/23/2024 10:00 AM EDT Office Visit Cardiology at [address] [place] [address] Mo Horne MD [facility] [place] [address] Scheduled Procedures Name Priority Associated Diagnoses Date/Ti me CYSTO, REMOVAL OF STENT, FOR EIGN BODY OR CALCULUS, SIMPLE (WRVU 2.81) NEPHROLITHIASIS 06/11/2024 1:03 PM EDT documented as of this encounter Visit Diagnoses Not on filedocumented in this encounter Care Teams Upholstery Trimmer Relationship Specialty Start Date End Date Bin Bowman MD [address] [place] [address] PCP - General General Internal Medicine 04/21/1707/11 documented as of this encounter
--- OUTSIDE RECORDS SUMMARY | 2024-06-04 20:44 | XMS_ITS | Encounter Summary ---
Author Organization [facility] [place] [address] Care Team Providers Care Actuarial Clerk Name Role Phone Bin Bowman MD Primary Care Provider Encounter Details Date Type Department Care Team (Late st Contact Info) Description 01/24/2021 Telephone Cardiology at [address] [phone] Lennie Garcia, RN Social History Tobacco Use Types Packs/Day [...] Miscellaneous Notes * Telephone Encounter - Lennie Garcia RN - 01/24/2021 3:28 PM EDT TC to pt & as f/u to results of echo & CXR (new bilat pleural effusions) per [facility] (+) SOB w/ exertion, rattles w/ use of incentive spirometer, lower extremity edema (-) weight gain,weight on Friday was 388 lbs Discussed w/ Dr. Cardenas, EP fellow on consult. It was recommended for pt to start Lasix 20 mg oralQD until his 02/05 OV with Mary Daley PA-C Will have BMP & be re-evaluated at this OV. Dr. Cardenas recommended if no improvement on 20 mg of Lasix, should call & Lasix could be increased to 40 mg QD Autumn (pt's spouse) agreeable w/ plan & verbalized understanding. They will call back with any further questions or concerns. Encouraged them to go to nearest ED if any worsening/severe symptoms develop. documented in this encounter Plan of Treatment Upcoming Encounters Date Type Department Care Team (Latest Contact Info) Description 06/07/2024 2:00 PM EDT Office [place] [phone] Joan Castro MD [facility] [place] [address] 06/11/2024 1:03 PM EDT Hospital Encounter [place] [phone] Rachel Carrasco MD [facility] [place] [address] 06/11/2024 1:03 PM EDT - 06/11/2024 1:58 PM EDT Surgery [place] [phone] Rachel Carrasco MD [facility] [place] [address] CYSTO, REMOVAL OF STENT, FOREIGN BODY OR CALCULUS, SIMPLE (WRVU 2.81) 06/23/2024 10:00 AM EDT Office Visit Cardiology at [address] [place] [phone] Mo Horne MD [facility] [place] [address] Scheduled Procedures Name Priority Associated Diagnoses Date/Ti me CYSTO, REMOVAL OF STENT, FOR EIGN BODY OR CALCULUS, SIMPLE (WRVU 2.81) NEPHROLITHIASIS 06/11/2024 1:03 PM EDT documented as of this encounter Results * (ABNORMAL) Basic Metabolic Panel (non-fasting) (02/05/2021 2:04 PM EDT) Glucose Lvl 115 65 - 199 mg/dL [facility] Comment:Diabetes: >=200 mg/d L plus symptoms BUN 8(L) 10 - 20 mg/dL [facility] Creatinine 0.98 0.80 - 1.50 mg/dL [facility] Sodium 141 135 - 145 mmol/L [facility] Potassium 3.9 3.5 - 5.0 mmol/L [facility] Comment: Please note: ??Patients with WBC >100,000 may have falsely elevated Potassium levels. ??For accurate Potassium quantification in these patients send serum separator tube (gold top) for subsequent determinations. ??Contact the Clinical Chemistry Laboratory if there are any questions. Chloride 103 98 - 107 mmol/L [facility] CO2 28 22 - 31 mmol/L [facility] Anion Gap 10 5 - 15 mmol/L [facility] Calcium 9.6 8.5 - 10.5 mg/dL [facility] Estimated GFR 89 >=60 mL/min/1. 73 m?? [facility] Comment: This patient? s estimated glomerular filtration rate (eGFR) is between 89 mL/min/1.73 m2 (patients with less muscle mass per kg body weight) and 103 mL/min/1.73 m2 (patients with more muscle mass [...] in addition to eGFR. Blood specimen (specimen) 02/05/2021 2:04 PM EDT 02/05/2021 2:15 PM EDT Narrative Resulting Agency Comment Spec In Lab Fadi Escobar MD CHEMISTRY ORDERABLES [facility] [place] [address] documented in this encounter Visit Diagnoses Diagnosis Essential hypertension Unspecified essential hypertension High risk medication use Encounter for long-term (current) use of other medications documented in this encounter Care Teams Actuarial Clerk Relationship Specialty Start Date End Date Bin Bowman MD [address] [place] [address] PCP - General General Internal Medicine 04/21/1707/11 documented as of this encounter
--- OUTSIDE RECORDS SUMMARY | 2024-06-04 20:44 | XMS_ITS | Encounter Summary ---
Author Organization [facility] Address [facility] [place] [address] Care Team Providers Care Parachute Officer Name Role Phone Bin Bowman MD Primary Care Provider Reason for Visit * Reason Onset Date Comments Medication Refill 02/13/2021 Encounter Details Date Type Department Care Team (Late st Contact Info) Description 02/13/2021 Refill Cardiology at [address] [phone] Fadi Escobar MD [facility] [place] [address] Medication Refill Social History Tobacco Use Types [...] Telephone Encounter - Lennie Garcia RN - 02/13/2021 12:04 PM EDTSummary: Medication Management TC from pt's spouse Autumn r/t Rolo's recent ED visit yesterday Amiodarone was increased to 400 mg BID - Autumn states that pt used to take brand name Pacerone but afew weeks ago was given generic amiodarone by Jerrod She thinks that Rolo doesn't tolerate the chemical composition of the generic amiodarone She contacted [facility] pharmacy who can dispense brand name Pacerone if script is sent in. Sent script in to pharmacy, Autumn knows to contact us if they are in need of anything Will discuss POC w/ Dr. Escobar documented in this encounter Plan of Treatment Upcoming Encounters Date Type Department Care Team (Latest Contact Info) Description 06/07/2024 2:00 PM EDT Office [place] [phone] Joan Castro MD [facility] [place] [address] 06/11/2024 1:03 PM EDT Hospital Encounter [place] [phone] Rachel Carrasco MD [facility] [place] [address] 06/11/2024 1:03 PM EDT - 06/11/2024 1:58 PM EDT Surgery [place] [phone] Rachel Carrasco MD [facility] [place] [address] CYSTO, REMOVAL OF STENT, FOREIGN BODY OR CALCULUS, SIMPLE (WRVU 2.81) 06/23/2024 10:00 AM EDT Office Visit Cardiology at [address] [place] [phone] Mo Horne MD [facility] [address] Scheduled Procedures Name Priority Associated Diagnoses Date/Ti me CYSTO, REMOVAL OF STENT, FOR EIGN BODY OR CALCULUS, SIMPLE (WRVU 2.81) NEPHROLITHIASIS 06/11/2024 1:03 PM EDT documented as of this encounter Visit Diagnoses Diagnosis Flutter-fibrillation Other premature beats documented in this encounter Care Teams Parachute Officer Relationship Specialty Start Date End Date Bin Bowman MD [address] [place] [phone] PCP - General General Internal Medicine 04/21/1707/11 documented as of this encounter
--- OUTSIDE RECORDS SUMMARY | 2024-06-04 20:44 | XMS_ITS | Encounter Summary ---
Author Organization [facility] [place] [address] Care Team Providers Care Equip Maint Eng Name Role Phone Bin Bowman MD Primary Care Provider [phone] Reason for Visit * Reason Onset Date Comments Follow-up 02/02/2021 Encounter Details Date Type Department Care Team (Late st Contact Info) Description 02/02/2021 Telephone Cardiology at [address] [phone] Lennie Garcia, RN Follow-up Social History Tobacco [...] Telephone Encounter - Lennie Garcia, RN - 02/02/2021 1:12 PM EDTSummary: F/u and Plan of Care TC to re-assess weights, symptoms, & most recent f/u CXR & echo from 01/31 at [facility] with Dr. Culver CXR from 01/31 shows small left & very small right pleural effusion Echo shows trace pericardial effusion. Autumn reports pt's symptoms of FRAIRE & edema has resolved & now (-) rattles Pt does not weigh himself daily, but took weight today & is 376. Plan to continue w/ 20 mg Lasix & colchicine (no longer has chest discomfort) & will see Al on 02/05 in f/u Per Dr. Escobar - recommended amiodarone 400 mg QD x 30 days then STOP. Autumn verbalized understanding & was agreeable to POC documented in this encounter Plan of Treatment Upcoming Encounters Date Type Department Care Team (Latest Contact Info) Description 06/07/2024 2:00 PM EDT Office Visit [place] [phone] Joan Castro MD [facility] [place] [address] 06/11/2024 1:03 PM EDT Hospital Encounter Main [place] [phone] Rachel Carrasco MD [facility] [place] [address] 06/11/2024 1:03 PM EDT - 06/11/2024 1:58 PM EDT Surgery Main [place] [phone] Rachel Carrasco MD [facility] [place] [address] CYSTO, REMOVAL OF STENT, FOREIGN BODY OR CALCULUS, SIMPLE (WRVU 2.81) 06/23/2024 10:00 AM EDT Office Visit Cardiology at [address] [place] [phone] Mo Horne MD [facility] [place] [address] Scheduled Procedures Name Priority Associated Diagnoses Date/Ti me CYSTO, REMOVAL OF STENT, FOR EIGN BODY OR CALCULUS, SIMPLE (WRVU 2.81) NEPHROLITHIASIS 06/11/2024 1:03 PM EDT documented as of this encounter Visit Diagnoses Not on filedocumented in this encounter Care Teams Equip Maint Eng Relationship Specialty Start Date End Date Bin Bowman MD [address] [place] [phone] PCP - General General Internal Medicine 04/21/1707/11 documented as of this encounter
--- OUTSIDE RECORDS SUMMARY | 2024-06-04 20:44 | XMS_ITS | Encounter Summary ---
Author Organization [facility] [place] [address] Care Team Providers Care Financial Representative Name Role Phone Bin Bowman MD Primary Care Provider Reason for Visit * - Closed Specialty Diagnoses / Procedures Referred By Zeyad mishra Referred To Contact Procedures Film Library- Storage Only DX Chest Bin Bowman MD [address] [place] [phone] Referral ID Status Reason Start Date Expiration Date Visits Re quested Visits Authorized [id number] Closed 01/31/2021 01/31/2022 1 1 Encounter Details Date Type Department Care Team (Late st Contact Info) Description 01/31/2021 1:50 PM EDT Ancillary Procedure [place] [address] Bin Bowman MD [address] [place] [address] [phone] Social History Tobacco Use Types Packs/Day Years [...] 2:00 PM EDT Office [place] [phone] Joan Castro MD [facility] [place] [address] 06/11/2024 1:03 PM EDT Hospital Encounter [place] [phone] Rachel Carrasco MD [facility] [place] [address] 06/11/2024 1:03 PM EDT - 06/11/2024 1:58 PM EDT Surgery [place] [phone] Rachel Carrasco MD [facility] [place] [address] CYSTO, REMOVAL OF STENT, FOREIGN BODY OR CALCULUS, SIMPLE (WRVU 2.81) 06/23/2024 10:00 AM EDT Office Visit Cardiology at [address] [phone] Mo Horne MD [facility] [address] Scheduled Procedures Name Priority Associated Diagnoses Date/Ti me CYSTO, REMOVAL OF STENT, FOR EIGN BODY OR CALCULUS, SIMPLE (WRVU 2.81) NEPHROLITHIASIS 06/11/2024 1:03 PM EDT documented as of this encounter Procedures Procedure Name Priority Date/Time Associated Diagnosis Comments FILM LIBRARY STORAGE ONLY DX CHEST Routine 01/31/2021 1:46 PM EDT documented in this encounter Results * Film Library- Storage Only DX Chest (01/31/2021 1:46 PM EDT) Narrative RAD - 01/31/2021 1:46 PM EDT This exam is auto-finalizing. It's purpose is for storage only. Bin Bowman MD IMG FILM LIBRARY ORD ERABLES [place], [place] documented in this encounter Visit Diagnoses Not on filedocumented in this encounter Care Teams Financial Representative Relationship Specialty Start Date End Date Bin Bowman MD [address] [place] [phone] PCP - General General Internal Medicine 04/21/1707/11 documented as of this encounter
--- OUTSIDE RECORDS SUMMARY | 2024-06-04 20:44 | XMS_ITS | Encounter Summary ---
Author Organization [facility] [place] [address] Care Team Providers Care Oil Dispatcher Name Role Phone Bin Bowman MD Primary Care Provider Reason for Visit * Reason Onset Date Comments Medication Refill 02/02/2021 Encounter Details Date Type Department Care Team (Late st Contact Info) Description 02/02/2021 Refill Cardiology at [address] [phone] Fadi Escobar MD [facility] [place] [address] Medication Refill Social History Tobacco Use Types [...] 2:00 PM EDT Office [place] [phone] Joan Castro MD [facility] [place] [address] 06/11/2024 1:03 PM EDT Hospital Encounter [place] [phone] Rachel Carrasco MD [facility] [place] [address] 06/11/2024 1:03 PM EDT - 06/11/2024 1:58 PM EDT Surgery [place] [phone] Rachel Carrasco MD [facility] [place] [address] CYSTO, REMOVAL OF STENT, FOREIGN BODY OR CALCULUS, SIMPLE (WRVU 2.81) 06/23/2024 10:00 AM EDT Office Visit Cardiology at [address] [phone] Mo Horne MD [facility] [place] [address] Scheduled Procedures Name Priority Associated Diagnoses Date/Ti me CYSTO, REMOVAL OF STENT, FOR EIGN BODY OR CALCULUS, SIMPLE (WRVU 2.81) NEPHROLITHIASIS 06/11/2024 1:03 PM EDT documented as of this encounter Visit Diagnoses Diagnosis Flutter-fibrillation Other premature beats documented in this encounter Care Teams Oil Dispatcher Relationship Specialty Start Date End Date Bin Bowman MD [address] [place] [phone] PCP - General General Internal Medicine 04/21/1707/11 documented as of this encounter
--- OUTSIDE RECORDS SUMMARY | 2024-06-04 20:44 | XMS_ITS | Encounter Summary ---
[place] [address] Care Team Providers Care Ip Architect Name Role Phone Bin Bowman MD Primary Care Provider Encounter Details Date Type Department Care Team (Late st Contact Info) Description 01/23/2021 Telephone Cardiology at [address] [phone] Anahy Paulino, RN Social History Tobacco Use Types Packs/Day [...] Telephone Encounter - Anahy Paulino RN - 01/23/2021 3:28 PM EDT VM left from Esmer at [facility] Cardiology. She reports that the patient had an echo there yesterday and the results have been sent over. She states the patient reported increasing shortness of breath recently, so a chest xray was ordered that showed a small to moderate pleural effusion on the left and small pleural effusion on the right. TC to Esmer. No answer message left confirming receipt of echo results and that this tag writer will report the findings to Dr. Escobar. Note emailed to Dr. Escobar for review. Anahy Paulino conveyor worker Clinic at [facility] [phone] documented in this encounter Plan of Treatment Upcoming Encounters Date Type Department Care Team (Latest Contact Info) Description 06/07/2024 2:00 PM EDT Office [place] [address] Joan Castro MD [facility] [place] [address] 06/11/2024 1:03 PM EDT Hospital Encounter [place] [address] Rachel Carrasco MD [facility] [place] [address] 06/11/2024 1:03 PM EDT - 06/11/2024 1:58 PM EDT Surgery Main Operating Room [place] [address] Rachel Carrasco MD [facility] [place] [address] CYSTO, REMOVAL OF STENT, FOREIGN BODY OR CALCULUS, SIMPLE (WRVU 2.81) 06/23/2024 10:00 AM EDT Office Visit Cardiology at [address] [place] [phone] Mo Horne MD [facility] [place] [address] Scheduled Procedures Name Priority Associated Diagnoses Date/Ti me CYSTO, REMOVAL OF STENT, FOR EIGN BODY OR CALCULUS, SIMPLE (WRVU 2.81) NEPHROLITHIASIS 06/11/2024 1:03 PM EDT documented as of this encounter Visit Diagnoses Not on filedocumented in this encounter Care Teams Ip Architect Relationship Specialty Start Date End Date Bin Bowman MD [address] [place] [phone] PCP - General General Internal Medicine 04/21/1707/11 documented as of this encounter
--- OUTSIDE RECORDS SUMMARY | 2024-06-04 20:44 | XMS_ITS | Encounter Summary ---
Author Organization [facility] [place] [address] Care Team Providers Care Medication Reconciliation Technician Name Role Phone Bin Bowman MD Primary Care Provider [phone] Reason for Visit * Reason Onset Date Comments Follow-up 01/16/2021 Encounter Details Date Type Department Care Team (Late st Contact Info) Description 01/16/2021 Telephone Cardiology at [address] [phone] Lennie Garcia, RN Follow-up Social History Tobacco [...] Telephone Encounter - Lennie Garcia, RN - 01/16/2021 10:49 AM ESTSummary: F/u from 01/[address] Wilkerson TC from pt's spouse Autumn about plan s/p 01/15 OV w/ Dr. Wilkerson. Recommendations were as follows: I have offered to have limited echo today (to r/o effusion of concern) or schedule f/u echo within one week + provider appointment. I have also recommended blood tests today (he is on several medications that should have lab monitoring) Both Mr. Aguilar and his decline these stating that 1) it would be hard to walk to the phlebotomy lab--I said that we could provide wheelchair) 2) they do not want to travel to [facility] for echocardiogram 3) they have a party coordinator at their local hospital andwould like to have echo and follow up there. Pt's expresses that pt wishes to have testing done at Dr. Culver office at [facility] Cardiology Called Dr. Culver office, spoke w/ Yulia, RN who will convey message to Dr. Culver & who will set up testing (limited echo & CMP, LFT, Mag labs) Pt has f/u appt with EP on 02/05 and f[facility] on 02/[address] Wilkerson's note to [facility] Card[facility] at [phone] documented in this encounter Plan of Treatment Upcoming Encounters Date Type Department Care Team (Latest Contact Info) Description 06/07/2024 2:00 PM EDT Office Visit Gastroenterology at [place] [phone] Joan Castro MD [facility] [place] [address] 06/11/2024 1:03 PM EDT Hospital Encounter Main Operating Room [place] [phone] Rachel Carrasco MD [facility] [place] [address] 06/11/2024 1:03 PM EDT - 06/11/2024 1:58 PM EDT Surgery Main Operating Room [place] [phone] Rachel Carrasco MD [facility] [place] [address] CYSTO, REMOVAL OF STENT, FOREIGN BODY OR CALCULUS, SIMPLE (WRVU 2.81) 06/23/2024 10:00 AM EDT Office Visit Cardiology at [address] [place] [address] Mo Horne MD [facility] [place] [address] Scheduled Procedures Name Priority Associated Diagnoses Date/Ti me CYSTO, REMOVAL OF STENT, FOR EIGN BODY OR CALCULUS, SIMPLE (WRVU 2.81) NEPHROLITHIASIS 06/11/2024 1:03 PM EDT documented as of this encounter Visit Diagnoses Not on filedocumented in this encounter Care Teams Medication Reconciliation Technician Relationship Specialty Start Date End Date Bin Bowman MD [address] [place] [id number] PCP - General General Internal Medicine 04/21/1707/11 documented as of this encounter
--- OUTSIDE RECORDS SUMMARY | 2024-06-04 20:44 | XMS_ITS | Encounter Summary ---
Author Organization [facility] [place] [address] Care Team Providers Care Director Of Conservation Name Role Phone Bin Bowman MD Primary Care Provider [phone] Reason for Visit * Auth/Cert Specialty Diagnoses / Procedures Referred By Zeyad mishra Referred To Contact Diagnoses SVT (supraventricular tachycardia) [I47.1], PAF (paroxysmal atrial fibrillation) [I48.0] Procedures ELECTROPHYSIOLOGY PROCEDURE TRANSESOPHAGEAL ECHO DURING CATH/EP PROCEDURE Referral ID Status Reason Start Date Expiration Date Visits Re quested Visits Authorized [id number] 1 1 Encounter Details Date Type Department Care Team (Latest Contact Info) Description 01/13/2021 8:10 AM EST - 01/13/2021 11:59 PM EST Hospital Encounter [place] [phone] Discharge Disposition: Home Social History Tobacco Use [...] Sig Dispensed Refills Start Date End Date lamoTRIgine (LaMICtal) 100 mg Tablet Take 1 [...] needed for Anxiety. AMIOdarone (PACERONE) 400 mg Tablet Take 1 tablet by mouth daily. 60 tablet 01/13/2021 02/02/2021 aspirin EC 650 mg Tablet, Delayed Release (E.C.) Take 1 tablet by mouth daily. 90 tablet 01/13/2021 02/05/2021 colchicine (Colcrys) 0.6 mg Tablet Take 1 tablet by mouth daily for 87 days. 87 tablet 01/14/2021 02/27/2021 loperamide (Imodium A-D) 2 mg Capsule Take 2 capsules by mouth 4 times daily as needed for Diarrhea. 30 tablet 01/13/2021 08/06/2022 HYDROmorphone (Dilaudid) 2 mg Tablet Take 1 tablet by mouth every 6 hours as needed for Pain. 10 tablet 01/13/2021 02/14/2021 apixaban (Eliquis) 5 mg Tablet Take 1 tablet by mouth 2 times daily. 60 tablet 3 12/19/2020 04/27/2021 atorvastatin (Lipitor) 20 mg Tablet Take 1 tablet by mouth every evening. 30 tablet 3 12/19/2020 02/12/2021 metoprolol succinate XL (Toprol-XL) 50 mg Tablet Sustained Release 24 hr Take 150 mg by mouth daily. 02/17/2021 pantoprazole (PROTONIX) 40 mg Tablet, Delayed Release (E.C.) Take 1 tablet by mouth 2 times daily. 180 tablet 3 03/25/2019 03/19/2021 documented as of this encounter Plan of Treatment Upcoming Encounters Date Type Department Care Team (Latest Contact Info) Description 06/07/2024 2:00 PM EDT Office Visit [place] [phone] Joan Castro MD [facility] [place] [address] 06/11/2024 1:03 PM EDT Hospital Encounter [place] [phone] Rachel aCrrasco MD [facility] [place] [address] 06/11/2024 1:03 PM EDT - 06/11/2024 1:58 PM EDT Surgery [place] [phone] Rachel Carrasco MD [facility] [place] [address] CYSTO, REMOVAL OF STENT, FOREIGN BODY OR CALCULUS, SIMPLE (WRVU 2.81) 06/23/2024 10:00 AM EDT Office Visit Cardiology at [address] [phone] Mo Horne MD [facility] [place] [address] Scheduled Procedures Name Priority Associated Diagnoses Date/Ti me CYSTO, REMOVAL OF STENT, FOR EIGN BODY OR CALCULUS, SIMPLE (WRVU 2.81) NEPHROLITHIASIS 06/11/2024 1:03 PM EDT documented as of this encounter Procedures Procedure Name Priority Date/Time Associated Diagnosis Comments ECHO COMPLETE Routine 01/13/2021 11:03 AM EST Pericardial effusion documented in this encounter Results * ECHO COMPLETE (01/13/2021 11:03 AM EST) Anatomical Region Laterality Modality Other 01/13/2021 Narrative 01/13/2021 11:38 AM EST Procedure: ?Transthoracic Echocardiogram Patient: ?ISAAC Rodney ?(Age): 1970(50y) Med Rec#: ? [id number] ?Sex: ?M ? Site Loc: ? [facility] ?Ht / Wt: ??168(cm)/198(kg) Pt. Loc: ?Adult Floor ? BSA: ?2.79 Study Date: ?? 01/13/2021 ?Pt. Type: Inpatient Tape: ? Referring: Jose Anand ??([id number]) Reading: Joss De Anda ([id number]) Documentum Consultant: Shahriar Juan RDCS, FASE Diagnosis: *Pericardial effusion (noninflammatory) (I31.3) *Paroxysmal atrial fibrillation (I48.0) BP: ? 119/83 HR: ? 140 SUMMARY: 1. Limited study to evaluate for pericardial effusion. 2. Patient is with tachyarrhythmia for some portions of the exam. 3. Trivial posterior pericardial effusion, without right-sided chambre collapse nor evidence of enhanced ventricular interdependence. 4. IVC is dilated but non-plethoric. 5. Compared to yesterday's study, there has been no significant change. Findings ? : Study Quality: ? Technically limited Left Ventricle: ? The left ventricular chamber size is normal. ?Left ventricular wall thickness is normal. ?Global left ventricular wall motion and contractility are probably within normal limits. ?There are no left ventricular segmental wall motion abnormalities. Right Ventricle: ? Right ventricular chamber size, wall thickness, and systolic function are within normal limits. ?The estimated pulmonary artery systolic pressure is 37 mmHg. ?The estimated right atrial pressure is 8 mmHg. Aortic Valve: ? The aortic valve is not well visualized. ?The aortic valve is probably tricuspid. ?There is no evidence of aortic valve thickening. ?There is no evidence of aortic valve stenosis. ?There is no evidence of aortic regurgitation. Mitral Valve: ? The mitral valve appears normal in structure and function. ?There is trace mitral regurgitation present. Tricuspid Valve: ? The tricuspid valve appears normal in structure and function. ?There is trace tricuspid regurgitation present. Pulmonic Valve: ? The pulmonic valve is not well visualized. ?There is no evidence of pulmonic regurgitation. Pericardium: ? A trivial pericardial effusion is visualized. ?A pericardial fat pad is visualized. Aorta: ? The aortic root is normal in size. ?The ascending aorta is normal in size. Pulmonary Artery: ? The main pulmonary artery appears normal. Venous: ? The inferior vena cava appears dilated. ?There is a greater than 50% respiratory change in the inferior vena cava dimension. Misc: ? Two-dimensional echo, spectral Doppler and color Doppler performed. Chambers 2D ?Value ?Units (Range) ? IVSd (2D) ? 1 ?cm ? LVPWd (2D) ?1.01 ? cm ? IVS:LVPW ratio (2D) 0.98 ? ratio ? RWT (2D) ?0.44 ? ratio ? RWT PW (2D) ? 0.45 ? ratio ? LVIDd (2D) ?4.54 ? cm ? LVIDs (2D) ?2.69 ? cm ? LVIDd (2D) index ?1.63 ? cm/m2 ? LVIDs (2D) index ?0.96 ? cm/m2 ? LV FS (2D) ?40.69 ?% ? EF Teichholz (2D) ?? 71.58 ?% ? Ao root diameter (2D2.86 ? cm (2.1 - 3.6) ? Ascending Ao ?2.81 ? cm (2 - 3.5) ? Volumes/Mass ?Value ?Units (Range) ? LA Area 4 CH ?29 ? cm2 (<21) ? LA ESV BP (A/L) inde36.14 ?ml/m2 ? RA AREA 4CH ? 20 ? cm2 ? LA ESV BP (MOD) inde36 ? ml/m2 ? LV ESV SP 4CH (MOD) 34.12 ?ml ? LV ESV SP 2CH (MOD) 37.02 ?ml ? LV EDV BP ? 133.03 ? ml ? LV ESV BP ? 35.87 ?ml ? LV EDV BP index ? 47.66 ?ml/m2 ? LV ESV BP index ? 12.85 ?ml/m2 ? BP EF (MOD) ? 73.03 ?% ? LV mass (2D) ?156.11 ? g ? LV mass (2D) index ??55.93 ?g/m2 ? Diastolic/Systolic Function ?Value ?Units (Range) ? MV E-wave Vmax ?0.94 ? m/sec ? MV deceleration wdwf161.49 ? msec ? MV A-wave Vmax ?0.66 ? m/sec ? MV E:A ratio ?1.43 ? ratio ? LV septal e' Vmax ?? 0.11 ? m/sec ? LV lateral e' Vmax ??0.18 ? m/sec ? LV average e' Vmax ??0.14 ? m/sec ? LV E:e' septal ratio8.58 ? ratio ? LV E:e' lateral rati5.24 ? ratio ? LV average E:e' rati6.51 ? ratio ? Aortic Valve ?Value ?Units (Range) ? AV Vmax ? 1.21 ? m/sec ? AV peak gradient ?5.82 ? mmHg ? LVOT Vmax ? 0.98 ? m/sec ? LVOT peak gradient ??3.84 ? mmHg ? DOI (Vmax) ?0.81 ? ratio ? Tricuspid Valve ?Value ?Units (Range) ? TR Vmax ? 2.69 ? m/sec ? TR peak gradient ?29 ? mmHg ? RAP ? 8 ?mmHg ? RVSP ?37 ? mmHg ? Wall Motion: Segment Name ?Rest ? Base-Anteroseptal ?? Normal ? Base-Anterior ? Normal ? Base-Anterolateral ??Normal ? Base-Posterolateral Normal ? Base-Inferior ? Normal ? Base-Inferoseptal ?? Normal ? Mid-Anteroseptal ?Normal ? Mid-Anterior ?Normal ? Mid-Anterolateral ?? Normal ? Mid-Posterolateral ??Normal ? Mid-Inferior ?Normal ? Mid-Inferoseptal ?Normal ? [place]-Septal ? Normal ? [place]-Anterior ? Normal ? [place]-Lateral ?Normal ? [place]-Inferior ? Normal ? [place]-Tip ?Normal ? This report has been electronically signed by: Joss De Anda MD ? 01/13/2021 11:37:34 Images reviewed and interpretation verified [facility] Procedure Note Joss De Anda MD - 01/13/2021 Procedure: Transthoracic Echocardiogram Patient: ISAAC Rodney (Age): 1970(50y) Med Rec#: [id number] Sex: M Site Loc: [facility] Ht / Wt: 168(cm)/198(kg) Pt. Loc: Adult Floor BSA: 2.79 Study Date: 01/13/2021 Pt. Type: Inpatient Tape: Referring: Jose Anand ([id number]) Reading: Joss De Anda ([id number]) Documentum Consultant: Burdulis, Egle RDCS, FASE Diagnosis: *Pericardial effusion (noninflammatory) (I31.3) *Paroxysmal atrial fibrillation (I48.0) BP: 119/83 HR: 140 SUMMARY: 1. Limited study to evaluate for pericardial effusion. 2. Patient is with tachyarrhythmia for some portions of the exam. 3. Trivial posterior pericardial effusion, without right-sided chambre collapse nor evidence of enhanced ventricular interdependence. 4. IVC is dilated but non-plethoric. 5. Compared to yesterday's study, there has been no significant change. Findings : Study Quality: Technically limited Left Ventricle: The left ventricular chamber size is normal. Left ventricular wall thickness is normal. Global left ventricular wall motion and contractility are probably within normal limits. There are no left ventricular segmental wall motion abnormalities. Right Ventricle: Right ventricular chamber size, wall thickness, and systolic function are within normal limits. The estimated pulmonary artery systolic pressure is 37 mmHg. The estimated right atrial pressure is 8 mmHg. Aortic Valve: The aortic valve is not well visualized. The aortic valve is probably tricuspid. There is no evidence of aortic valve thickening. There is no evidence of aortic valve stenosis. There is no evidence of aortic regurgitation. Mitral Valve: The mitral valve appears normal in structure and function. There is trace mitral regurgitation present. Tricuspid Valve: The tricuspid valve appears normal in structure and function. There is trace tricuspid regurgitation present. Pulmonic Valve: The pulmonic valve is not well visualized. There is no evidence of pulmonic regurgitation. Pericardium: A trivial pericardial effusion is visualized. A pericardial fat pad is visualized. Aorta: The aortic root is normal in size. The ascending aorta is normal in size. Pulmonary Artery: The main pulmonary artery appears normal. Venous: The inferior vena cava appears dilated. There is a greater than 50% respiratory change in the inferior vena cava dimension. Misc: Two-dimensional echo, spectral Doppler and color Doppler performed. Chambers 2D Value Units (Range) IVSd (2D) 1 cm LVPWd (2D) 1.01 cm IVS:LVPW ratio (2D) 0.98 ratio RWT (2D) 0.44 ratio RWT PW (2D) 0.45 ratio LVIDd (2D) 4.54 cm LVIDs (2D) 2.69 cm LVIDd (2D) index 1.63 cm/m2 LVIDs (2D) index 0.96 cm/m2 LV FS (2D) 40.69 % EF Teichholz (2D) 71.58 % Ao root diameter (2D2.86 cm (2.1 - 3.6) Ascending Ao 2.81 cm (2 - 3.5) Volumes/Mass Value Units (Range) LA Area 4 CH 29 cm2 (<21) LA ESV BP (A/L) inde36.14 ml/m2 RA AREA 4CH 20 cm2 LA ESV BP (MOD) inde36 ml/m2 LV ESV SP 4CH (MOD) 34.12 ml LV ESV SP 2CH (MOD) 37.02 ml LV EDV BP 133.03 ml LV ESV BP 35.87 ml LV EDV BP index 47.66 ml/m2 LV ESV BP index 12.85 ml/m2 BP EF (MOD) 73.03 % LV mass (2D) 156.11 g LV mass (2D) index 55.93 g/m2 Diastolic/Systolic Function Value Units (Range) MV E-wave Vmax 0.94 m/sec MV deceleration kvws909.49 msec MV A-wave Vmax 0.66 m/sec MV E:A ratio 1.43 ratio LV septal e' Vmax 0.11 m/sec LV lateral e' Vmax 0.18 m/sec LV average e' Vmax 0.14 m/sec LV E:e' septal ratio8.58 ratio LV E:e' lateral rati5.24 ratio LV average E:e' rati6.51 ratio Aortic Valve Value Units (Range) AV Vmax 1.21 m/sec AV peak gradient 5.82 mmHg LVOT Vmax 0.98 m/sec LVOT peak gradient 3.84 mmHg DOI (Vmax) 0.81 ratio Tricuspid Valve Value Units (Range) TR Vmax 2.69 m/sec TR peak gradient 29 mmHg RAP 8 mmHg RVSP 37 mmHg Wall Motion: Segment Name Rest Base-Anteroseptal Normal Base-Anterior Normal Base-Anterolateral Normal Base-Posterolateral Normal Base-Inferior Normal Base-Inferoseptal Normal Mid-Anteroseptal Normal Mid-Anterior Normal Mid-Anterolateral Normal Mid-Posterolateral Normal Mid-Inferior Normal Mid-Inferoseptal Normal [place]-Septal Normal [place]-Anterior Normal [place]-Lateral Normal [place]-Inferior Normal [place]-Tip Normal This report has been electronically signed by: Joss De Anda MD 01/13/2021 11:37:34 Images reviewed and interpretation verified [facility] Jose Anand MD ECHO ORDERABLES documented in this encounter Visit Diagnoses Not on filedocumented in this encounter Care Teams Director Of Conservation Relationship Specialty Start Date End Date Bin Bowman MD [address] [place] [address] PCP - General General Internal Medicine 04/21/1707/11 documented as of this encounter
--- OUTSIDE RECORDS SUMMARY | 2024-06-04 20:44 | XMS_ITS | Encounter Summary ---
Author Organization [facility] [place] [address] Care Team Providers Care Senior Strategy Analyst Name Role Phone Bin Bowman MD Primary Care Provider Reason for Visit * Reason Onset Date Comments Medication Refill 02/12/2021 Encounter Details Date Type Department Care Team (Late st Contact Info) Description 02/12/2021 Refill Cardiology at [address] [phone] Mary Daley PA [facility] [place] [address] Medication Refill Social History Tobacco Use Types [...] 2:00 PM EDT Office Visit [place] [phone] Joan Castro MD [facility] [place] [address] 06/11/2024 1:03 PM EDT Hospital Encounter [place] [phone] Rachel Carrasco MD [facility] [place] [address] 06/11/2024 1:03 PM EDT - 06/11/2024 1:58 PM EDT Surgery [place] [phone] Rachel Carrasco MD [facility] [place] [address] CYSTO, REMOVAL OF STENT, FOREIGN BODY OR CALCULUS, SIMPLE (WRVU 2.81) 06/23/2024 10:00 AM EDT Office Visit Cardiology at [address] [place] [address] Mo Horne MD [facility] [place] [address] Scheduled Procedures Name Priority Associated Diagnoses Date/Ti me CYSTO, REMOVAL OF STENT, FOR EIGN BODY OR CALCULUS, SIMPLE (WRVU 2.81) NEPHROLITHIASIS 06/11/2024 1:03 PM EDT documented as of this encounter Visit Diagnoses Not on filedocumented in this encounter Care Teams Senior Strategy Analyst Relationship Specialty Start Date End Date Bin Bowman MD [address] [place] [id number] PCP - General General Internal Medicine 04/21/1707/11 documented as of this encounter
--- OUTSIDE RECORDS SUMMARY | 2024-06-04 20:44 | XMS_ITS | Encounter Summary ---
Author Organization [facility] Address [facility] [place] [address] Care Team Providers Care Care Director Name Role Phone Bin Bowman MD Primary Care Provider [phone] Reason for Referral * Diagnostic Test (Routine) - Closed Specialty Diagnoses / Procedures Referred By Contac t Referred To Contact Cardiology Diagnoses PAF (paroxysmal atrial fibrillation) Procedures Ziopatch 48 Hrs-15 Days Fadi Escobar MD [facility] [place] [address] [facility] [place] [address] Referral ID Status Reason Start Date Expiration Date V isits Requested Visits Authorized [id number] Closed Specialty Service Requested 02/19/2021 04/21/2021 1 1 Encounter Details Date Type Department Care Team (Late st Contact Info) Description 01/17/2021 Orders Only Cardiology at [address] [phone] Fadi Escobar MD [facility] [place] [address] PAF (paroxysmal atrial fibrillation) Social History Tobacco [...] 2:00 PM EDT Office Visit Gastroenterology at [place] [phone] Joan Castro MD [facility] [place] [address] 06/11/2024 1:03 PM EDT Hospital Encounter Main Operating Room [place] [phone] Rachel Carrasco MD [facility] [address] 06/11/2024 1:03 PM EDT - 06/11/2024 1:58 PM EDT Surgery Main Operating Room [place] [phone] Rachel Carrasco MD [facility] [place] [address] CYSTO, REMOVAL OF STENT, FOREIGN BODY OR CALCULUS, SIMPLE (WRVU 2.81) 06/23/2024 10:00 AM EDT Office Visit Cardiology at [address] [phone] Mo Horne MD [facility] [place] [address] Scheduled Procedures Name Priority Associated Diagnoses Date/Ti me CYSTO, REMOVAL OF STENT, FOR EIGN BODY OR CALCULUS, SIMPLE (WRVU 2.81) NEPHROLITHIASIS 06/11/2024 1:03 PM EDT documented as of this encounter Results * Ziopatch 48 Hrs-15 Days (02/19/2021 11:27 AM EDT) Anatomical Region Laterality Modality Other Narrative 03/21/2021 11:24 AM EDT [facility] ? [facility] Monitor [...] fibrillation documented in this encounter Care Teams Care Director Relationship Specialty Start Date End Date Bin Bowman MD [address] [place] [address] PCP - General General Internal Medicine 04/21/1707/11 documented as of this encounter
--- OUTSIDE RECORDS SUMMARY | 2024-06-04 20:44 | XMS_ITS | Encounter Summary ---
Author Organization [facility] Address [facility] [place] [address] Care Team Providers Care Apartment Leasing Consultant Name Role Phone Bin Bowman MD Primary Care Provider Encounter Details Date Type Department Care Team (Late st Contact Info) Description 02/12/2021 External [place] [phone] Social History Tobacco Use Types [...] PM EDT Office [place] [phone] Joan Castro MD [facility] [place] [address] 06/11/2024 1:03 PM EDT Hospital Encounter [place] [phone] Rachel Carrasco MD [facility] [place] [address] 06/11/2024 1:03 PM EDT - 06/11/2024 1:58 PM EDT Surgery [place] [address] Rachel Carrasco MD [facility] [place] [address] CYSTO, REMOVAL OF STENT, FOREIGN BODY OR CALCULUS, SIMPLE (WRVU 2.81) 06/23/2024 10:00 AM EDT Office Visit Cardiology at [address] [place] [address] Mo Horne MD [facility] [place] [address] Scheduled Procedures Name Priority Associated Diagnoses Date/Ti me CYSTO, REMOVAL OF STENT, FOR EIGN BODY OR CALCULUS, SIMPLE (WRVU 2.81) NEPHROLITHIASIS 06/11/2024 1:03 PM EDT documented as of this encounter Procedures Procedure Name Priority Date/Time Associated Diagnosis Comments ECG SCAN Routine 02/12/2021 ECG SCAN Routine 02/12/2021 documented in this encounter Results * Scan Doc: ECG (02/12/2021) Historical Provider MEDIA MGR SCAN EX T ORDR/RSLT * Scan Doc: ECG (02/12/2021) Historical Provider MEDIA MGR SCAN EX T ORDR/RSLT documented in this encounter Visit Diagnoses Not on filedocumented in this encounter Care Teams Apartment Leasing Consultant Relationship Specialty Start Date End Date Bin Bowman MD [address] [place] [address] PCP - General General Internal Medicine 04/21/1707/11 documented as of this encounter
--- OUTSIDE RECORDS SUMMARY | 2024-06-04 20:44 | XMS_ITS | Encounter Summary ---
Author Organization [facility] Address [facility] [place] [address] Care Team Providers Care Operating Room Aide Name Role Phone Bin Bowman MD Primary Care Provider Encounter Details Date Type Department Care Team (Late st Contact Info) Description 02/14/2021 Telephone Cardiology at [address] [phone] Mahogany Hong PA [facility] [place] [address] Social History Tobacco Use Types Packs/Day Years [...] encounter Miscellaneous Notes * Telephone Encounter - Mahogany Hong PA - 02/14/2021 3:53 PM EDT Images from the original note were not included. 02/14/2021 Rolo Aguilar Initial Contact Date: 02/14/2021 Initial contact time: 3:53 PM Referring Provider: Dr. Horne Patient Location: [facility] BED # [facility] Past Medical History: Atrial Arrhythmias Presenting Symptoms per OSH: 50 Y O M from [place], who has a history of Atrial Arrhythmias was driven to the ER by his wifebecause he was feeling poorly. He was recently treated with amio and metop and cardioverted at [facility] and flipped back out and is feeling terrible again. May need to be admitted for IV dilt gtt per Dr. Horne. Plan: Spoke to Dr. Horne. Spoke to Dr. Humza Wilson. Above recommendations were based on my discussion with them; I have not personally interviewed or examined this patient. Advised to call the transfer center back with any changes in the patient condition. I have not personally reviewed EKGs. SONNY Dickerson 02/14/2021 02/14/2021 documented in this encounter Plan of Treatment Upcoming Encounters Date Type Department Care Team (Latest Contact Info) Description 06/07/2024 2:00 PM EDT Office [place] [phone] Joan Castro MD [facility] [place] [address] 06/11/2024 1:03 PM EDT Hospital Encounter Main Operating Room [place] [phone] Rachel Carrasco MD [facility] [place] [address] 06/11/2024 1:03 PM EDT - 06/11/2024 1:58 PM EDT Surgery [place] [phone] Rachel Carrasco MD [facility] [place] [address] CYSTO, REMOVAL OF STENT, FOREIGN BODY OR CALCULUS, SIMPLE (WRVU 2.81) 06/23/2024 10:00 AM EDT Office Visit Cardiology at [address] [place] [address] Mo Horne MD [facility] [place] [address] Scheduled Procedures Name Priority Associated Diagnoses Date/Ti me CYSTO, REMOVAL OF STENT, FOR EIGN BODY OR CALCULUS, SIMPLE (WRVU 2.81) NEPHROLITHIASIS 06/11/2024 1:03 PM EDT documented as of this encounter Visit Diagnoses Not on filedocumented in this encounter Care Teams Operating Room Aide Relationship Specialty Start Date End Date Bin Bowman MD [address] [place] [address] PCP - General General Internal Medicine 04/21/1707/11 documented as of this encounter
--- OUTSIDE RECORDS SUMMARY | 2024-06-04 20:44 | XMS_ITS | Encounter Summary ---
Author Organization [facility] [place] [address] Care Team Providers Care Helper Steel Fabrication Name Role Phone Bin Bowman MD Primary Care Provider Encounter Details Date Type Department Care Team (Late st Contact Info) Description 01/23/2021 Orders Only Cardiology at [address] [phone] Chica Rm, RN PAF (paroxysmal atrial fibrillation) Social History Tobacco [...] 2:00 PM EDT Office Visit [place] [address] Joan Castro MD [facility] [place] [address] 06/11/2024 1:03 PM EDT Hospital Encounter [place] [address] Rachel Carrasco MD [facility] [place] [address] 06/11/2024 1:03 PM EDT - 06/11/2024 1:58 PM EDT Surgery [place] [phone] Rachel Carrasco MD [facility] [place] [address] CYSTO, REMOVAL OF STENT, FOREIGN BODY OR CALCULUS, SIMPLE (WRVU 2.81) 06/23/2024 10:00 AM EDT Office Visit Cardiology at [address] [address] Mo Horne MD [facility] [place] [address] Scheduled Procedures Name Priority Associated Diagnoses Date/Ti me CYSTO, REMOVAL OF STENT, FOR EIGN BODY OR CALCULUS, SIMPLE (WRVU 2.81) NEPHROLITHIASIS 06/11/2024 1:03 PM EDT documented as of this encounter Results * EKG 12 Lead (02/05/2021 2:45 PM EDT) Ventricular rate 64 BPM MUSE SYSTEM Atrial Rate 64 BPM MUSE SYSTEM P-R Interval 164 ms MUSE SYSTEM QRS Duration 100 ms MUSE SYSTEM Q-T Interval 418 ms MUSE SYSTEM QTC Calculated (Bezet) 431 ms MUSE SYSTEM Calculated P Sapello 21 degrees MUSE SYSTEM Calculated R [place] 41 degrees MUSE SYSTEM Calculated T Sapello 12 degrees MUSE SYSTEM INTERPRETATION Normal sinus rhythm Possible Inferior infarct (cited on or before 13-JAN-2021) Abnormal ECG When compared with ECG of 15-JAN-2021 15:43, No significant change was found Confirmed by MD Nataly, Gilberto Jerome ([id number]) on 02/05/2021 3:31:24 PM MUSE SYSTEM 02/05/2021 2:45 PM EDT 02/05/2021 3:31 PM EDT Wilian Bridges MD ECG ORDERABLES [facility] SYSTEM documented in this encounter Visit Diagnoses Diagnosis PAF (paroxysmal atrial fibrillation) Atrial fibrillation documented in this encounter Care Teams [employer] Relationship Specialty Start Date End Date Bin Bowman MD [address] [place] [id number] PCP - General General Internal Medicine 04/21/1707/11 documented as of this encounter
--- OUTSIDE RECORDS SUMMARY | 2024-06-04 20:44 | XMS_ITS | Encounter Summary ---
[facility] [place] [address] Care Team Providers Care Insurance Healthcare Representative Name Role Phone Bin Bowman MD Primary Care Provider Encounter Details Date Type Department Care Team (Late st Contact Info) Description 02/16/2021 10:35 AM EDT Anesthesia Event [place] [address] Ariella Shetty MD [facility] [place] [address] Ariella Shetty MD [facility] [place] [address] Anesthesia Record Procedure Summary Procedure Name Responsible Anesthesiologist Anesthesia Start Time Anesthesia Stop Time CARDIOVERSION-ELECT ALBERT (WRVU 2) Events No events on file. Meds * Agents No agents on file. [...] OR Notes * Anesthesia Preprocedure Evaluation - Ariella Shetty - 02/15/2021 8:17 PM EDT Pre-Anesthesia Evaluation for: Rolo Aguilar a 50 y.o. male. Procedure(s): CARDIOVERSION-ELECTIVE (WRVU 2.25) Patient Active Problem List Diagnosis ??? Atrial flutter ??? Bipolar disorder ??? SVT (supraventricular tachycardia) Added automatically from request for surgery [id number] ??? PAF (paroxysmal atrial fibrillation) Added automatically from request for surgery [id number] ??? Flutter-fibrillation ??? H/O cardiac radiofrequency ablation ??? Coronary disease ?? 2017: STEMI. PCI of OM1. EF 60%. Many ER visits to [facility] after this. ??? Heart palpitations ??? Obesity ??? Essential hypertension Past Medical History: Diagnosis Date ??? A-fib ??? Anxiety ??? Arthritis ??? CAD (coronary artery disease) ??? Depression ??? Flutter-fibrillation ??? GERD (gastroesophageal reflux disease) ??? Hepatitis ??? HLD (hyperlipidemia) ??? Hypertension ??? Seizure Past Surgical History: Procedure Laterality Date ??? CHOLECYSTECTOMY ??? PRO LAP, CHOLECYSTECTOMY/GRAPH N/A 07/21/2018 LAPAROSCOPIC CHOLECYSTECTOMY WITH CHOLANGIOGRAM (WRVU 11.47) performed by Colt Hewitt MD [facility] MAIN OR ??? PRO UNLISTED LAPAROSCOPIC PX LVR N/A 07/21/2018 LAPAROSCOPIC LIVER BIOPSY (WRVU 16.52) performed by Colt Hewitt MD at [facility] MAIN OR ??? PRO UPPER GI ENDOSCOPY, BIOPSY N/A 12/29/2017 UPPER GASTROINTESTINAL ENDOSCOPY,WITH BIOPSY SINGLE OR MULTIPLE (WRVU 2.49) performed by Yusuf Tucker MD at [facility] ENDOSCOPY ??? PRO UPPER GI ENDOSCOPY, DIAGNOSTIC N/A 12/29/2017 EGD, UPPER GI ENDOSCOPY performed by Yusuf Tucker MD at [facility] ENDOSCOPY ??? TONSILLECTOMY Social History Tobacco Use ??? Smoking status: Former Smoker Packs/day: 1.50 Years: 15.00 Pack years: 22.50 Types: Cigarettes Quit date: 2014 Years since quittin.2 ??? Smokeless tobacco: Former User Types: Chew Substance Use Topics ??? Alcohol use: No Social History Substance and Sexual Activity Drug Use Yes ??? Types: Marijuana Comment: medical MJ Allergies Allergen Reactions ??? Adenosine Palpitations tachycardia ??? Gabapentin ??? Wellbutrin [Bupropion Hcl] ??? Zoloft [Sertraline] Medications: MAR and/or home medications have been reviewed. Physical Exam: Preprocedure Vitals Current as of 02/15/212016 BP: 139/87 Pulse: 124 Resp: 23 SpO2: 97 Temp: 36.7 ??C (98.1 ??F) Height: Weight: 176.8 kg (389 lb 12.4 oz) (02/15/21) BMI: IBW: Last edited 02/15/21 1135 by Anesthesia Physical Exam Last Filed Perioperative Cognitive Screening None Anesthesia Plan: ASA 3 50 yo, 176 kg male presenting for cardioversion PMH significant for PILAR on CPAP, HTN, CAD s/p stenting in 2017, GERD, anxiety, A flutter s/p 2 ablations in past few months. He presented to ED on 02/14 with A flutter with RVR, currently on amiodaroneinfusion. He has previously tolerated anesthesia, mac 4 gr 1. Allergies to adenosine, gabapentin, wellbutrin, zoloft. Echo in January 2021 showing normal EF, mild TR, mild pHTN, apical RV hypokinesis, no WMAs. Plan: propofol MAC, std monitors and IV access Informed Consent: PAT Clinic Note documented in this encounter Plan of Treatment Upcoming Encounters Date Type Department Care Team (Latest Contact Info) Description 06/07/2024 2:00 PM EDT Office Visit [place] [address] Joan Castro MD [facility] [place] [address] 06/11/2024 1:03 PM EDT Hospital Encounter [place] [phone] Rachel Carrasco MD [facility] [place] [address] 06/11/2024 1:03 PM EDT - 06/11/2024 1:58 PM EDT Surgery [place] [phone] Rachel Carrasco MD [facility] [place] [address] CYSTO, REMOVAL OF STENT, FOREIGN BODY OR CALCULUS, SIMPLE (WRVU 2.81) 06/23/2024 10:00 AM EDT Office Visit Cardiology at [address] [place] [address] Mo Horne MD [facility] [place] [address] Scheduled Procedures Name Priority Associated Diagnoses Date/Ti me CYSTO, REMOVAL OF STENT, FOR EIGN BODY OR CALCULUS, SIMPLE (WRVU 2.81) NEPHROLITHIASIS 06/11/2024 1:03 PM EDT documented as of this encounter Visit Diagnoses Not on filedocumented in this encounter Care Teams Insurance Healthcare Representative Relationship Specialty Start Date End Date Bin Bowman MD [address] [place] [id number] PCP - General General Internal Medicine 04/21/1707/11 documented as of this encounter
--- OUTSIDE RECORDS SUMMARY | 2024-06-04 20:44 | XMS_ITS | Encounter Summary ---
Author Organization [facility] Address [facility] [place] [address] Care Team Providers Care Wire Stitcher Operator Name Role Phone Bin Bowman MD Primary Care Provider [phone] Encounter Details Date Type Department Care Team (Late st Contact Info) Description 02/05/2021 2:15 PM EDT Office Visit Cardiology at [address] [address] Mary Daley, SONNY [facility] [place] [address] PAF (paroxysmal atrial fibrillation) Social History Tobacco [...] Sign Reading Time Taken Comments Blood Pressure 138/80 02/05/2021 2:23 PM EDT Pulse 68 02/05/2021 2:23 PM EDT Temperature - - Respiratory Rate - - Oxygen Saturation 98% 02/05/2021 2:23 PM EDT Inhaled Oxygen Concentration - - Weight 169.2 kg (373 lb) 02/05/2021 2:23 PM EDT Height 167.6 cm (5' 6) 02/05/2021 2:23 PM EDT Body Mass Index 60.2 02/05/2021 2:23 PM EDT documented in this encounter Progress Notes * Mary Daley PA - 02/05/2021 2:15 PM EDT Cardiac Electrophysiology Clinic Visit Subjective: Patient ID: Rolo Aguilar is a 50 y.o. male. CC: Post-ablation follow-up HPI: 50 y.o. male male with a history of atrial flutter s/p CTI ablation in July 2020, atrial fibrillation s/p PVI and posterior LA wall isolation on 01/10/21, anticoagulated with Eliquis, ASCVD (s/p NSTEMI, EMMY to OM1 in 07/2017), HTN, sleep apnea, RICARDO, and obesity, who presents for a post-ablation follow-up. Mr. Aguilar underwent a PVI and posterior LA wall isolation on 01/10/21 complicated by hypotension requiring pressor support in setting of acute vlaql-[id number] pericardial effusion for which a pericardiocentesis was [...] pleural effusion Echo shows trace pericardial effusion. Dr. Escobar recommended amiodarone 400mg daily for 30 days then discontinue. Today, Mr. Aguilar reports that he is ok. He has made some improvements but does not feel backto normal. He reports improvement in his breathing with some FRAIRE. For example, when he first went home, he was unable to climb his stairs without feeling completely winded. Now (nearly 3 weeks later) he explains that this is much easier and he can climb stairs to let his dogs out without difficulty. He has been using an incentive spirometer which he feels is getting easier. He endorses localized, occasional chest discomfort which feels like it is at the site of the pericardial drain. This is fleeting, not reproducible. He occasionally feels this is he moves his left arm back in a certain waybut cannot reproduce it today. He endorses rare palpitations which radiate to his throat and last <5 minutes. He denies lightheadedness. He denies weight gain (acutally has experienced ~8-10 lb wtloss). He has been taking lasix 20mg po daily with good effect. He continues amiodarone 400mg po daily. He also continues his colchicine 0.6mg po daily associated with frequent episodes of diarrhea. Patient Active Problem List Diagnosis ??? Bipolar disorder ??? SVT (supraventricular tachycardia) Overview Note: Added automatically from request for surgery [id number] ??? PAF (paroxysmal atrial fibrillation) Overview Note: Added automatically from request for surgery [id number] ??? Flutter-fibrillation ??? H/O cardiac radiofrequency ablation ??? Coronary disease Overview Note: ?? 2017: STEMI. PCI of OM1. EF 60%. Many ER visits to [facility] after this. ??? Heart palpitations ??? Obesity ??? Essential hypertension ROS: Constitutional: - fatigue, - fever, - chills Respiratory: Please see HPI Cardiovascular: Please see HPI Gastrointestinal: - nausea, - vomiting, - abdominal pain, - diarrhea Neurological: Please see HPI Psychiatric: - anxious Medications: Current Outpatient Medications Medication Sig Note Dispense Refill ??? AMIOdarone (PACERONE) 400 mg Tablet Take 1 tablet by mouth daily. For 30 days, then stop 30 tablet 0 ??? furosemide (Lasix) 20 mg Tablet Take 1 tablet by mouth daily. 30 tablet 0 ??? colchicine (Colcrys) 0.6 mg Tablet Take 1 tablet by mouth daily for 87 days. 87 tablet 0 ??? lamoTRIgine (LaMICtal) 100 mg Tablet Take 1 tablet by mouth daily. 30 tablet 12 ??? loperamide (Imodium A-D) 2 mg Capsule Take 2 capsules by mouth 4 times daily as needed for Diarrhea. 30 tablet 0 ??? HYDROmorphone (Dilaudid) 2 mg Tablet Take 1 tablet by mouth every 6 hours as needed for Pain. 10 tablet 0 ??? clindamycin (CLINDAGEL) 1 % Gel APPLY TOPICALLY TO AFFECTED AREA TWICE DAILY 30 g 1 ??? apixaban (Eliquis) 5 mg Tablet Take 1 tablet by mouth 2 times daily. 60 tablet 3 ??? atorvastatin (Lipitor) 20 mg Tablet Take 1 tablet by mouth every evening. 30 tablet 3 ??? metoprolol succinate XL (Toprol-XL) 50 mg Tablet Sustained Release 24 hr Take 50 mg by mouth daily. ??? lisinopriL (Prinivil;Zestril) 2.5 mg Tablet Take 1 tablet by mouth daily. 90 tablet 3 ??? pantoprazole (PROTONIX) 40 mg Tablet, Delayed Release (E.C.) Take 1 tablet by mouth 2 times daily. 180 tablet 3 ??? acetaminophen (TYLENOL) 325 mg Tablet Take 2 tablets by mouth every 6 hours as needed for Pain.30 tablet 1 ??? nitroGLYcerin (NITROSTAT) 0.4 mg Tablet, Sublingual DISSOLVE 1 UNDER TONGUE NEEDED 03/18/2018:Received from: External Pharmacy 4 ??? aspirin 81 mg Tablet, Delayed Release (E.C.) Take 1 tablet by mouth daily. 30 tablet 3 ??? clonazePAM (KLONOPIN) 1 mg Tablet Take 1 mg by mouth 2 times daily as needed for Anxiety. 07/20/2018: Takes BID Objective: Vitals: Vitals: 02/05/21 1423 BP: 138/80 Pulse: 68 SpO2: 98% Weight: (!) 169.2 kg (373 lb) Height: 167.6 cm (5' 6) Physical Exam: General- No acute distress, sitting comfortably in exam room chair HEENT- Head atraumatic, normocephalic Skin- Warm, dry Neck- No JVD noted Cardiovascular- S1/S2 regular rate and regular rhythm. No murmur, rub or gallop Lungs- Diminished lung sounds at left base otherwise clear to auscultation bilaterally Extremities- Pulses equal bilaterally. No edema noted Neuro- A&Ox3 ECG in office today shows SR at 64bpm, IN of 164ms, QRS of 100ms, QT 418ms, QTc is 431ms. Inferior Q waves. Assessment and Plan: 50 y.o. male male with a history of atrial flutter s/p CTI ablation in July 2020, atrial fibrillation s/p PVI and posterior LA wall isolation on 01/10/21 complicated by pericardial effusion and subsequent pleural effusions, anticoagulated with Eliquis, ASCVD (s/p NSTEMI, EMMY to OM1 in 07/2017), HTN, sleep apnea, RICARDO, and obesity, who has made great strides since a complicated hospital course 3weeks ago. His SOB is improving and he had not had recurrent lightheadedness which is reassuring. His exam is generally promising with improvement, although, possible persistence of left pleural effusion. Therefore, will continue lasix until his follow-up with Dr. Culver. Advised to discontinue if he is anuric (not a current complaint). He is experiencing some diarrhea with colchicine, mjrrlavdiwwpstaj-janbg-xhj dosing if diarrhea continues. Communicated Dr. Escobar's recommendations to continue amiodarone until 03/05/21. Plan: 1. Continue amiodarone 400mg po daily until 03/05/21 2. Continue anticoagulation with Eliquis 3. Continue colchicine 0.6mg po daily 4. Continue lasix 20mg po daily 5. Follow-up with Dr. Culver next month (already scheduled) 6. Follow-up with Dr. Escobar in March I appreciate the opportunity to be involved with Mr. Aguilar's care. Please do not hesitate to contact EP with any further questions (pager [phone]). SONNY Grover 4:04 PM 02/05/21 documented in this encounter Plan of Treatment Upcoming Encounters Date Type Department Care Team (Latest Contact Info) Description 06/07/2024 2:00 PM EDT Office Visit [place] [address] Joan Castro MD [facility] [place] [address] 06/11/2024 1:03 PM EDT Hospital Encounter [place] [address] Rachel Carrasco MD [facility] [address] 06/11/2024 1:03 PM EDT - 06/11/2024 1:58 PM EDT Surgery [place] [address] Rachel Carrasco MD [facility] [place] [address] CYSTO, REMOVAL OF STENT, FOREIGN BODY OR CALCULUS, SIMPLE (WRVU 2.81) 06/23/2024 10:00 AM EDT Office Visit Cardiology at [address] [place] [address] Mo Horne MD [facility] [place] [address] Scheduled Procedures Name Priority Associated Diagnoses Date/Ti me CYSTO, REMOVAL OF STENT, FOR EIGN BODY OR CALCULUS, SIMPLE (WRVU 2.81) NEPHROLITHIASIS 06/11/2024 1:03 PM EDT documented as of this encounter Procedures Procedure Name Priority Date/Time Associated Diagnosis Comments EKG 12-LEAD Routine 02/05/2021 2:45 PM EDT PAF (paroxysmal atrial fibrillation) documented in this encounter Results * EKG 12 Lead (02/05/2021 2:45 PM EDT) Ventricular rate 64 BPM MUSE SYSTEM Atrial Rate 64 BPM MUSE SYSTEM P-R Interval 164 ms MUSE SYSTEM QRS Duration 100 ms MUSE SYSTEM Q-T Interval 418 ms MUSE SYSTEM QTC Calculated (Bezet) 431 ms MUSE SYSTEM Calculated P Harvey 21 degrees MUSE SYSTEM Calculated R Harvey 41 degrees MUSE SYSTEM Calculated T Harvey 12 degrees MUSE SYSTEM INTERPRETATION Normal sinus rhythm Possible Inferior infarct (cited on or before 13-JAN-2021) Abnormal ECG When compared with ECG of 15-JAN-2021 15:43, No significant change was found Confirmed by MD Nataly, Gilberto Jerome ([id number]) on 02/05/2021 3:31:24 PM MUSE SYSTEM 02/05/2021 2:45 PM EDT 02/05/2021 3:31 PM EDT Wilian Bridges MD ECG ORDERABLES [facility] SYSTEM documented in this encounter Visit Diagnoses Diagnosis PAF (paroxysmal atrial fibrillation) Atrial fibrillation documented in this encounter Care Teams Wire Stitcher Operator Relationship Specialty Start Date End Date Bin Bowman MD [address] [place] [id number] PCP - General General Internal Medicine 04/21/1707/11 documented as of this encounter
--- OUTSIDE RECORDS SUMMARY | 2024-06-04 20:44 | XMS_ITS | Encounter Summary ---
Author Organization [facility] Address [facility] [place] [address] Care Team Providers Care Master Steam Yacht Name Role Phone Bin Bowman MD Primary Care Provider [phone] Encounter Details Date Type Department Care Team (Late st Contact Info) Description 02/14/2021 Telephone Cardiology at [address] [phone] Fadi Escobar MD [facility] [place] [address] Social History Tobacco Use Types Packs/Day Years [...] 2:00 PM EDT Office [place] [phone] Joan Castro MD [facility] [place] [address] 06/11/2024 1:03 PM EDT Hospital Encounter [place] [address] Rachel Carrasco MD [facility] [place] [address] 06/11/2024 1:03 PM EDT - 06/11/2024 1:58 PM EDT Surgery [place] [phone] Rachel Carrasco MD [facility] [place] [address] CYSTO, REMOVAL OF STENT, FOREIGN BODY OR CALCULUS, SIMPLE (WRVU 2.81) 06/23/2024 10:00 AM EDT Office Visit Cardiology at [address] [address] Mo Horne MD [facility] [place] [address] Scheduled Procedures Name Priority Associated Diagnoses Date/Ti me CYSTO, REMOVAL OF STENT, FOR EIGN BODY OR CALCULUS, SIMPLE (WRVU 2.81) NEPHROLITHIASIS 06/11/2024 1:03 PM EDT documented as of this encounter Visit Diagnoses Not on filedocumented in this encounter Care Teams Master Steam Yacht Relationship Specialty Start Date End Date Bin Bowman MD [address] [place] [phone] PCP - General General Internal Medicine 04/21/1707/11 documented as of this encounter
--- OUTSIDE RECORDS SUMMARY | 2024-06-04 20:44 | XMS_ITS | Encounter Summary ---
Author Organization [facility] [place] [address] Care Team Providers Care Gelatin Plant Supervisor Name Role Phone Bin Bowman MD Primary Care Provider [phone] Reason for Visit * Reason Onset Date Comments Follow-up 02/13/2021 Encounter Details Date Type Department Care Team (Late st Contact Info) Description 02/13/2021 Telephone Cardiology at [address] [phone] Lennie Garcia, RN Follow-up Social History Tobacco [...] Telephone Encounter - Lennie Garcia, RN - 02/13/2021 3:36 PM EDTSummary: F/u Call TC to pt's Autumn r/t POC & f/u s/p ED visit at [facility] yesterday (02/12/21) Discussed situation with Dr. Escobar & aMry Daley. Plan will be for pt to continue on amiodarone 400 mg BID for 1 week (last day of BID dosing will be 02/20) Pt will then decrease down to 400 mg QD of amiodarone on 02/21. Dr. Escobar plans on contacting Dr. Culver to discuss pt. Determination will be made of sooner appt than /10 f/u with Dr. Escobar as well as potentially wearing heart monitor (Zio) Will await Dr. Escobar's determination & will contact pt once advisement provided. documented in this encounter Plan of Treatment Upcoming Encounters Date Type Department Care Team (Latest Contact Info) Description 06/07/2024 2:00 PM EDT Office Visit [place] [phone] Joan Castro MD [facility] [place] [address] 06/11/2024 1:03 PM EDT Hospital Encounter [place] [phone] Rachel Carrasco MD [facility] [place] [address] 06/11/2024 1:03 PM EDT - 06/11/2024 1:58 PM EDT Surgery [place] [phone] Rachel Carrasco MD [facility] [place] [address] CYSTO, REMOVAL OF STENT, FOREIGN BODY OR CALCULUS, SIMPLE (WRVU 2.81) 06/23/2024 10:00 AM EDT Office Visit Cardiology at [address] [place] [phone] Mo Horne MD [facility] [place] [address] Scheduled Procedures Name Priority Associated Diagnoses Date/Ti me CYSTO, REMOVAL OF STENT, FOR EIGN BODY OR CALCULUS, SIMPLE (WRVU 2.81) NEPHROLITHIASIS 06/11/2024 1:03 PM EDT documented as of this encounter Visit Diagnoses Not on filedocumented in this encounter Care Teams Gelatin Plant Supervisor Relationship Specialty Start Date End Date Bin Bowman MD [address] [place] [id number] PCP - General General Internal Medicine 04/21/1707/11 documented as of this encounter
--- OUTSIDE RECORDS SUMMARY | 2024-06-04 20:44 | XMS_ITS | Encounter Summary ---
Author Organization [facility] Address [facility] [place] [address] Care Team Providers Care Research Manager Name Role Phone Bin Bowman MD Primary Care Provider [phone] Encounter Details Date Type Department Care Team (Late st Contact Info) Description 01/15/2021 4:00 PM EST Office Visit Cardiology at [address] [place] [address] Judy Tijerina MD [facility] [place] [address] Flutter-fibrillation; SVT (supraventricular tachycardia); Coronary disease; Essential hypertension Social History Tobacco Use Types Packs/Day Years [...] Sign Reading Time Taken Comments Blood Pressure 138/86 01/15/2021 3:45 PM EST Pulse 80 01/15/2021 3:45 PM EST Temperature - - Respiratory Rate - - Oxygen Saturation 99% 01/15/2021 3:45 PM EST Inhaled Oxygen Concentration - - Weight 184.6 kg (407 lb) 01/15/2021 3:45 PM EST Height 167.6 cm (5' 6) 01/15/2021 3:45 PM EST Body Mass Index 65.69 01/15/2021 3:45 PM EST documented in this encounter Patient Instructions * Patient Instructions* Judy Tijerina MD - 01/15/2021 4:00 PM EST For labs and echocardiogram, Please call Dr. Culver' office right away to schedule both of these Have my office fax all your notes to him. documented in this encounter Progress Notes * Judy Tijerina MD - 01/15/2021 4:00 PM EST CARDIOLOGY OUTPATIENT CLINIC NOTE PRIMARY CARE PROVIDER: Bin Bowman MD REFERRING PROVIDER: Bin Bowman Patient ID: Rolo Aguilar is a 50 y.o. male. HPI: 01/15/21 Patient was scheduled to be seen later this week but mistakenly came today. He is seen by the Consult Attending. 50 year old with morbid obesity, past history of atrial flutter (on anticoagulation), SVT (refractory to cardioversion) CAD with stent in LCX 2016, anxiety, bipolar disorder. Admitted in early January 2021 with pericardial effusion --felt to be secondary to ablation. He comes with his today. He states that I couldn't breath when he first presented to the hospital but now is now much better, at least 50% or more. He weighs 184 kg (BMI 66) and is essentiallysedentary. He has minimal chest discomfort at rest, some with a deep breath. EKG 01/15/21 Sinus at 69 No evidence of pulsus alternans Echocardiogram 01/13/21 ??1. Limited study to evaluate for pericardial effusion. 2. Patient is with tachyarrhythmia for some portions of the exam. 3. Trivial posterior pericardial effusion, without right-sided chambre collapse nor evidence of enhanced ventricular interdependence. 4. IVC is dilated but non-plethoric. 5. Compared to yesterday's study, there has been no significant change Cardiac catheterization 01/11/21 Drainage of pericardial effusion and placement of pigtail catheter PROBLEM LIST: Problem List: 2020-12: Bipolar disorder 2020-12: SVT (supraventricular tachycardia) 2020-12: PAF (paroxysmal atrial fibrillation) 2020-12: Flutter-fibrillation 2020-06: H/O cardiac radiofrequency ablation 2019-07: Coronary disease 2019-07: Heart palpitations 2019-07: Obesity 2019-07: Essential hypertension MEDICATIONS: Current Outpatient Medications Medication Sig Dispense Refill ??? AMIOdarone (PACERONE) 400 mg Tablet Take 1 tablet by mouth daily. 60 tablet 0 ??? aspirin EC 650 mg Tablet, Delayed Release (E.C.) Take 1 tablet by mouth daily. 90 tablet 0 ??? colchicine (Colcrys) 0.6 mg [...] No current facility-administered medications for this visit. Subjective: Review of Systems Constitution: Negative for malaise/fatigue and weight gain. Cardiovascular: Positive for chest pain, dyspnea on exertion, irregular heartbeat and palpitations.Negative for claudication, cyanosis, leg swelling, near-syncope, orthopnea, paroxysmal nocturnal dyspnea and syncope. Respiratory: Positive for shortness of breath. Negative for sleep disturbances due to breathing. Hematologic/Lymphatic: Does not bruise/bleed easily. Musculoskeletal: Negative for back pain, falls, joint pain and myalgias. Genitourinary: Negative for frequency. Neurological: Negative for dizziness, light-headedness and loss of balance. Psychiatric/Behavioral: Negative for altered mental status and memory loss. Social History: Social History Socioeconomic History ??? Marital status: Spouse name: Not on file ??? Number of children: Not on file ??? Years of education: Not on file ??? Highest education level: Not on file Occupational History ??? Not on file Tobacco Use ??? Smoking status: Former Smoker Types: Cigarettes Quit date: 2013 Years since quittin.1 ??? Smokeless tobacco: Former User Types: Chew Substance and Sexual Activity ??? Alcohol use: No ??? Drug use: Yes Types: Marijuana Comment: medical MJ ??? Sexual activity: Never Other Topics Concern ??? Not on file Social History Narrative ??? Not on file Social Determinants of Health Financial Resource Strain: ??? Difficulty of Paying Living Expenses: Not on file Food Insecurity: ??? Worried About Running Out of Food in the Last Year: Not on file ??? Ran Out of Food in the Last Year: Not on file Transportation Needs: ??? Lack of Transportation (Medical): Not on file ??? Lack of Transportation (Non-Medical): Not on file Physical Activity: ??? Days of Exercise per Week: Not on file ??? Minutes of Exercise per Session: Not on file Objective: Physical Exam Constitutional: Appearance: He is well-developed. Comments: Massively obese Neck: Vascular: No JVD. Cardiovascular: Rate and Rhythm: Normal rate and regular rhythm. Heart sounds: Normal heart sounds. Pulmonary: Effort: Pulmonary effort is normal. Breath sounds: Normal breath sounds. Skin: General: Skin is warm and dry. Neurological: Mental Status: He is alert and oriented to person, place, and time. Psychiatric: Behavior: Behavior normal. No data found. Recent Results (from the past 72 hour(s)) BMP w/fasting Glucose Result Value Glucose Fasting 92 BUN 14 Creatinine 0.83 Sodium 135 Potassium 3.8 Chloride 103 CO2 22 Anion Gap 10 Calcium 8.2 (L) Estimated GFR 102 Magnesium Result Value Magnesium 0.92 Hemogram Result Value WBC 11.5 (H) RBC 4.11 (L) Hemoglobin 11.4 (L) Hematocrit 35.1 (L) MCV 85.4 MCH 27.7 MCHC 32.5 Platelets 122 (L) RDWSD 44.7 RDWCV 14.6 (H) MPV 10.6 nRBC % Auto 0.0 nRBC Abs Auto 0.000 Differential, Automated Result Value Neutrophils % 71.0 Neutr Abs (ANC) 8.18 (H) Lymphocytes % 16.6 Lymphocytes Abs 1.9 Monocytes % 10.7 Monocyte Abs 1.2 (H) Eosinophils % 0.5 Eosinophils Abs 0.1 Basophils % 0.3 Basophils Abs 0.0 Immature Gran % 0.90 Amy Gran Abs 0.10 (H) EKG 12 Lead Result Value Ventricular rate 141 Atrial Rate 141 P-R Interval 146 QRS Duration 94 Q-T Interval 266 QTC Calculated (Bezet) 407 Calculated P [place] 55 Calculated R [place] 28 Calculated T [place] 54 INTERPRETATION Sinus tachycardia Low voltage QRS Possible Inferior infarct , age undetermined Abnormal ECG EKG 12 Lead Result Value Ventricular rate 141 Atrial Rate 141 P-R Interval 146 QRS Duration 94 Q-T Interval 266 QTC Calculated (Bezet) 407 Calculated P [place] 55 Calculated R [place] 28 Calculated T [place] 54 INTERPRETATION Sinus tachycardia Low voltage QRS Possible Inferior infarct (cited on or before 13-JAN-2021) Abnormal ECG When compared with ECG of 12-JAN-2021 00:07, Diffuse ST-elevations have resolved, and there are now diffuse TWI, consistent with resolving pericarditis Confirmed by MD De Anda Daniel ([id number]) on 01/13/2021 12:29:23 PM Assessment and Plan: No problem-specific Assessment & Plan notes found for this encounter. This is a 50 year old gentleman with recent EP ablation procedure and subsequent pericardial effusion apparently due to the procedure. He has had drainage and pigtail catheter, removed when rate of drainage suggested that there was no further significant accumulation. Today he states that his breathing is much improved. Note that he is morbidly obese (body weight 407 lbs, BMI 65. 7) and very sedentary. He was seen today by the Consult Attending as he came on a day that was not scheduled for his appointment (this was January 17 2021). By exam and history, he does not appear to be in hemodynamic compromise and clinically is doing much, much better. I have offered to have limited echo [...] they do not want to travel to [facility] for echocardiogram 3) they have a jig bore tool maker at their local hospital and would like to have echo and follow up there. I have given them copy of today's EKG and discharge summary and asked that they have all records (including this note) sent to their jig bore tool maker, Dr. Culver. They have follow up with the Electrophysiology team here and agreed to keep these appointments. This appointment was 50 minutes long and > 50% of the time was spent counseling, and coordination of care. Time spent for this clinic appointment on the date of service includes: 1) udfi-bo-cpch counseling as noted above 2) reviewing past medical records, cardiac testing, results of laboratory testing 3) coordinating care with other physicians and allied health care providers Judy Tijerina MD, Robinson, FACC, FNLA Attending Sap Portal Consultant Sports Cardiology Program Preventive Cardiology Lipid Clinic Advanced Hypertension Clinic documented in this encounter Plan of Treatment Upcoming Encounters Date Type Department Care Team (Latest Contact Info) Description 06/07/2024 2:00 PM EDT Office Visit [place] [address] Joan Castro MD [facility] [address] 06/11/2024 1:03 PM EDT Hospital Encounter [place] [phone] Rachel Carrasco MD [facility] [place] [address] 06/11/2024 1:03 PM EDT - 06/11/2024 1:58 PM EDT Surgery [place] [phone] Rachel Carrasco MD [facility] [place] [address] CYSTO, REMOVAL OF STENT, FOREIGN BODY OR CALCULUS, SIMPLE (WRVU 2.81) 06/23/2024 10:00 AM EDT Office Visit Cardiology at [address] [place] [address] Mo Horne MD [facility] [place] [address] Scheduled Procedures Name Priority Associated Diagnoses Date/Ti me CYSTO, REMOVAL OF STENT, FOR EIGN BODY OR CALCULUS, SIMPLE (WRVU 2.81) NEPHROLITHIASIS 06/11/2024 1:03 PM EDT documented as of this encounter Procedures Procedure Name Priority Date/Time Associated Diagnosis Comments EKG 12-LEAD Routine 01/15/2021 3:43 PM EST Flutter-fibrillation SVT (supraventricular tachycardia) Coronary disease Essential hypertension documented in this encounter Results * EKG 12 Lead (01/15/2021 3:43 PM EST) Ventricular rate 69 BPM MUSE SYSTEM Atrial Rate 69 BPM MUSE SYSTEM P-R Interval 154 ms MUSE SYSTEM QRS Duration 106 ms MUSE SYSTEM Q-T Interval 404 ms MUSE SYSTEM QTC Calculated (Bezet) 432 ms MUSE SYSTEM Calculated P [place] 10 degrees MUSE SYSTEM Calculated R [place] 32 degrees MUSE SYSTEM Calculated T [place] 36 degrees MUSE SYSTEM INTERPRETATION Normal sinus rhythm Possible Inferior infarct (cited on or before 13-JAN-2021) Abnormal ECG When compared with ECG of 13-JAN-2021 08:06, Vent. rate has decreased BY ??72 BPM Nonspecific T wave abnormality, improved in Lateral leads Confirmed by Roxana Mesa MD ([id number]) on 01/16/2021 12:13:58 PM MUSE SYSTEM 01/15/2021 3:43 PM EST 01/16/2021 12:13 PM EST Judy Tijerina MD ECG ORDERABLES MUSE SYSTEM documented in this encounter Visit Diagnoses Diagnosis Flutter-fibrillation Other premature beats SVT (supraventricular tachycardia) Other specified cardiac dysrhythmias Coronary disease Essential hypertension Unspecified essential hypertension documented in this encounter Care Teams Research Manager Relationship Specialty Start Date End Date Bin Bowman MD [address] [place] [id number] PCP - General General Internal Medicine 04/21/1707/11 documented as of this encounter
--- OUTSIDE RECORDS SUMMARY | 2024-06-04 20:44 | XMS_ITS | Encounter Summary ---
Author Organization [facility] [place] [address] Care Team Providers Care Public Health Staff Nurse Name Role Phone Bin Bowman MD Primary Care Provider Reason for Visit * Reason Onset Date Comments Post Procedure Call 01/17/2021 Encounter Details Date Type Department Care Team (Late st Contact Info) Description 01/17/2021 Telephone Cardiology at [address] [phone] Lennie Garcia, RN Post Procedure Call Social History Tobacco Use Types Packs/Day Years [...] Telephone Encounter - Lennie Garcia RN - 01/17/2021 8:17 AM ESTSummary: Post Procedure Call: AF/AFL ablation MAGALY RN POST-PROCEDURE CALL Patient Name: Rolo Aguilar Patient Performing MD: MEREDITH Date of Procedure: 01/10/21 Date Discharged: 01/13/21 Procedure: AF/AFL ablation Date Patient was Called: 01/17/21 Assessment: Catheter Insertion Sites (bruising, swelling, redness, discharge): Sites CD&I CP/dizziness/SOB/palpitations: (+) palpitations & tachycardia - only lasting 2-3 min w/ mild dizziness. Reports this is much better than what he used to experience prior to his ablation. (+) FRAIRE & fatigue but nothing major He states that overall he feels much better than when he first came in & when he was discharged, each day status is improving UTI symptoms (pain, burning, urgency, frequency): Negative Headaches: Negative S/S of infection (fever/chills/malaise): Negative Other Complaints: pericarditis & pericardial effusion w/ tamponade requiring pericardial drain placement during admission Med Changes/Clarification: 1) Colchicine 0.6 mg 1 tab BID 2) Amiodarone adjusted to 400 mg daily 3) High dose ASA w/ taper: Take 650 mg three times a day until 01/16. Starting 01/17 take 650 mg two times a day until 01/24. Starting 01/25 take 650 mg daily until 01/31. Starting 02/01 go back to taking 81 mg daily Follow Up Plan: 1) Visit w/ Dr. Wilkerson on 01/15 - recommendations for limited echo to r/o effusion & amio lab work (CMP, TSH, Mag) within the week - to be done w/ Dr. Culver @ [facility] (01/22) 2) F/u w/ Mary Daley on 02/05 3) Zio in early/mid February 4) F/u w/ Dr. Escobar in early March documented in this encounter Plan of Treatment Upcoming Encounters Date Type Department Care Team (Latest Contact Info) Description 06/07/2024 2:00 PM EDT Office Visit [place] [address] Joan Castro MD [facility] [place] [address] 06/11/2024 1:03 PM EDT Hospital Encounter [place] [address] Rachel Carrasco MD [facility] [place] [address] 06/11/2024 1:03 PM EDT - 06/11/2024 1:58 PM EDT Surgery [place] [address] Rachel Carrasco MD [facility] [place] [address] CYSTO, REMOVAL OF STENT, FOREIGN BODY OR CALCULUS, SIMPLE (WRVU 2.81) 06/23/2024 10:00 AM EDT Office Visit Cardiology at [address] [phone] Mo Horne MD [facility] [place] [address] Scheduled Procedures Name Priority Associated Diagnoses Date/Ti me CYSTO, REMOVAL OF STENT, FOR EIGN BODY OR CALCULUS, SIMPLE (WRVU 2.81) NEPHROLITHIASIS 06/11/2024 1:03 PM EDT documented as of this encounter Visit Diagnoses Not on filedocumented in this encounter Care Teams Public Health Staff Nurse Relationship Specialty Start Date End Date Bin Bowman MD [address] [place] [phone] PCP - General General Internal Medicine 04/21/1707/11 documented as of this encounter
--- OUTSIDE RECORDS SUMMARY | 2024-06-04 20:44 | XMS_ITS | Encounter Summary ---
Author Organization [facility] [place] [address] Care Team Providers Care Actuarial Intern Name Role Phone Bin Bowman MD Primary Care Provider [phone] Reason for Visit * Reason Onset Date Comments Follow-up 02/14/2021 Encounter Details Date Type Department Care Team (Late st Contact Info) Description 02/14/2021 Telephone Cardiology at [address] [phone] Lennie Garcia, RN Follow-up Social History Tobacco [...] Telephone Encounter - Lennie Garcia, RN - 02/14/2021 10:41 AM EDTSummary: Follow Up TC to pt's Autumn as f/u to discussion from yesterday (02/13) r/t to recent [facility] admission d/t AF. As a result amiodarone was increased to 400 mg BID. Discussed w/ Dr. Escobar POC for pt last PM. Dr. Escobar requested DCCV within the next few weeks w/ continuation of amiodarone 400 mg BID untilCV date (scheduled 02/28) Discussed this w/ Autumn who states that Bib's HR's are still in the 130's despite 400 mg BID ofamiodarone & in addition last PM Dr. Culver increased pt's metoprolol dose from 100 mg to 150 mg. Bib took that this AM with no improvement in HR's. Autumn reports that Bib is diaphoretic & is having SOB & dizziness w/ exertion. Discussed w/ Estela Mathew - recommended pt (if relatively stable) come to [facility]. Autumn & Bib were agreeable to this & Autumn will drive Bib to [facility]. documented in this encounter Plan of Treatment Upcoming Encounters Date Type Department Care Team (Latest Contact Info) Description 06/07/2024 2:00 PM EDT Office [place] [phone] Joan Castro MD [facility] [place] [address] 06/11/2024 1:03 PM EDT Hospital Encounter Main Operating Room [place] [phone] Rachel Carrasco MD [facility] [place] [address] 06/11/2024 1:03 PM EDT - 06/11/2024 1:58 PM EDT Surgery [place] [phone] Rachel Carrasco MD [facility] [place] [address] CYSTO, REMOVAL OF STENT, FOREIGN BODY OR CALCULUS, SIMPLE (WRVU 2.81) 06/23/2024 10:00 AM EDT Office Visit Cardiology at [address] [place] [phone] Mo Horne MD [facility] [place] [address] Scheduled Procedures Name Priority Associated Diagnoses Date/Ti me CYSTO, REMOVAL OF STENT, FOR EIGN BODY OR CALCULUS, SIMPLE (WRVU 2.81) NEPHROLITHIASIS 06/11/2024 1:03 PM EDT documented as of this encounter Visit Diagnoses Not on filedocumented in this encounter Care Teams Actuarial Intern Relationship Specialty Start Date End Date Bin Bowman MD [address] [place] [id number] PCP - General General Internal Medicine 04/21/1707/11 documented as of this encounter
--- OUTSIDE RECORDS SUMMARY | 2024-06-04 20:44 | XMS_ITS | Encounter Summary ---
Author Organization [facility] [place] [address] Care Team Providers Care Instructor Dramatic Arts Name Role Phone Bin Bowman MD Primary Care Provider Encounter Details Date Type Department Care Team (Late st Contact Info) Description 01/23/2021 External Results Non-[place] [address] None None Social History Tobacco Use Types Packs/Day Years [...] 2:00 PM EDT Office [place] [phone] Joan Castro MD [facility] [place] [address] 06/11/2024 1:03 PM EDT Hospital Encounter [place] [address] Rachel Carrasco MD [facility] [place] [address] 06/11/2024 1:03 PM EDT - 06/11/2024 1:58 PM EDT Surgery Main Operating Room [facility] [place] [address] Rachel Carrasco MD [facility] [place] [place] [address] CYSTO, REMOVAL OF STENT, FOREIGN BODY OR CALCULUS, SIMPLE (WRVU 2.81) 06/23/2024 10:00 AM EDT Office Visit Cardiology at [address] [place] [phone] Mo Horne MD [facility] [place] [address] Scheduled Procedures Name Priority Associated Diagnoses Date/Ti me CYSTO, REMOVAL OF STENT, FOR EIGN BODY OR CALCULUS, SIMPLE (WRVU 2.81) NEPHROLITHIASIS 06/11/2024 1:03 PM EDT documented as of this encounter Procedures Procedure Name Priority Date/Time Associated Diagnosis Comments ECHO SCAN (SCAN) Routine 01/22/2021 documented in this encounter Results * Scan Doc: Echo (01/22/2021) Anatomical Region Laterality Modality Cardiac Other None MEDIA MGR SCAN EXT O RDR/RSLT documented in this encounter Visit Diagnoses Not on filedocumented in this encounter Care Teams Instructor Dramatic Arts Relationship Specialty Start Date End Date Bin Bowman MD [address] [place] [phone] PCP - General General Internal Medicine 04/21/17 9/03/01 documented as of this encounter
--- OUTSIDE RECORDS SUMMARY | 2024-06-04 20:44 | XMS_ITS | Encounter Summary ---
Author Organization [facility] [place] [address] Care Team Providers Care Pulp Mill Operator Name Role Phone Bin Bowman MD Primary Care Provider [phone] Encounter Details Date Type Department Care Team (Latest Contact Info) Description 02/05/2021 1:30 PM EDT Laboratory Appointment Lab [address]L [place] [address] Essential hypertension; High risk medication use; SVT (supraventricular tachycardia) Social History Tobacco Use Types Packs/Day Years [...] 2:00 PM EDT Office [place] [phone] Joan Castro MD [facility] [place] [address] 06/11/2024 1:03 PM EDT Hospital Encounter Main [place] [address] Rachel Carrasco MD [facility] [place] [address] 06/11/2024 1:03 PM EDT - 06/11/2024 1:58 PM EDT Surgery [place] [phone] Rachel Carrasco MD [facility] [place] [address] CYSTO, REMOVAL OF STENT, FOREIGN BODY OR CALCULUS, SIMPLE (WRVU 2.81) 06/23/2024 10:00 AM EDT Office Visit Cardiology at [address] [phone] Mo Horne MD [facility] [place] [address] Scheduled Procedures Name Priority Associated Diagnoses Date/Ti me CYSTO, REMOVAL OF STENT, FOR EIGN BODY OR CALCULUS, SIMPLE (WRVU 2.81) NEPHROLITHIASIS 06/11/2024 1:03 PM EDT documented as of this encounter Procedures Procedure Name Priority Date/Time Associated Diagnosis Comments HEMOGRAM Routine 02/05/2021 2:04 PM EDT SVT (supraventricular tachycardia) DIFFERENTIAL, AUTOMATED Routine 02/05/2021 2:04 PM EDT SVT (supraventricular tachycardia) HC CBC,PLT & AUTO DIFF Routine 02/05/2021 2:04 PM EDT SVT (supraventricular tachycardia) HC VENIPUNCTURE Routine 02/05/2021 2:04 PM EDT Essential hypertension High risk medication use documented in this encounter Results * Differential, Automated (02/05/2021 2:04 PM EDT) Neutrophils % 46.8 % [facility] Neutr Abs (ANC) 3.24 1.70 - 6.10 x10(3)/[facility] Lymphocytes % 39.8 % [facility] Lymphocytes Abs 2.8 0.9 - 3.2 x10(3)/[facility] Monocytes % 8.7 % [facility] Monocyte Abs 0.6 0.3 - 0.9 x10(3)/[facility] Eosinophils % 3.6 % [facility] Eosinophils Abs 0.2 0.0 - 0.4 x10(3)/[facility] Basophils % 0.7 % [facility] Basophils Abs 0.0 0.0 - 0.1 x10(3)/[facility] Immature Gran % 0.40 % [facility] Comment: Immature granulocytes(IG's)percentage and absolute count will include metamyelocytes, myelocytes, and promyelocytes. Blood smears from CBCs yielding IG's will be scanned manually for concordance. If this scan disagrees with the automated IG or if promyelocytes are noted, a manual differential will be performed. Amy Gran Abs 0.03 0.00 - 0.04 x10(3)/[facility] Blood specimen (specimen) 02/05/2021 2:04 PM EDT 02/05/2021 2:15 PM EDT Narrative Resulting Agency Comment Spec In Lab Fadi Escobar MD HEMATOLOGY ORDERABLE S [facility] [place] [address] * (ABNORMAL) Hemogram (02/05/2021 2:04 PM EDT) WBC 6.9 4.0 - 9.5 x10(3)/[facility] RBC 4.85 4.58 - 5.54 x10(6)/[facility] Hemoglobin 13.0(L) 13.7 - 16.5 gm/dL [facility] Hematocrit 40.7 40.5 - 48.5 % [facility] MCV 83.9 82.9 - 93.1 fL [facility] MCH 26.8(L) 27.5 - 32.1 pg [facility] MCHC 31.9(L) 32.0 - 35.7 gm/dL [facility] Platelets 293 145 - 357 x10(3)/[facility] RDWSD 41.8 36.0 - 45.0 fL [facility] RDWCV 13.5 11.4 - 13.8 % [facility] MPV 9.8 7.6 - 12.9 [facility] nRBC % Auto 0.0 % [facility] nRBC Abs Auto 0.000 0.000 - 0.000 x10(3)/[facility] Blood specimen (specimen) 02/05/2021 2:04 PM EDT 02/05/2021 2:15 PM EDT Narrative Resulting Agency Comment Spec In Lab Fadi Escobar MD HEMATOLOGY ORDERABLE S [facility] [place] [address] * (ABNORMAL) Basic Metabolic Panel (non-fasting) (02/05/2021 2:04 PM EDT) Glucose Lvl 115 65 - 199 mg/dL [facility] Comment:Diabetes: >=200 mg/d L plus symptoms BUN 8(L) 10 - 20 mg/dL [facility] Creatinine 0.98 0.80 - 1.50 mg/dL [facility] Sodium 141 135 - 145 mmol/L [facility] Potassium 3.9 3.5 - 5.0 mmol/L [facility] Comment: Please note: ??Patients with WBC >100,000 may have falsely elevated Potassium levels. ??For accurate Potassium quantification in these patients send serum separator tube (gold top) for subsequent determinations. ??Contact the Clinical Chemistry Laboratory if there are any questions. Chloride 103 98 - 107 mmol/L [facility] CO2 28 22 - 31 mmol/L [facility] Anion Gap 10 5 - 15 mmol/L [facility] Calcium 9.6 8.5 - 10.5 mg/dL [facility] Estimated GFR 89 >=60 mL/min/1. 73 m?? [facility] Comment: This patient? s estimated [...] In Lab Fadi Escobar MD CHEMISTRY ORDERABLES [facility] [place] [address] documented in this encounter Visit Diagnoses Diagnosis Essential hypertension Unspecified essential hypertension High risk medication use Encounter for long-term (current) use of other medications SVT (supraventricular tachycardia) Other specified cardiac dysrhythmias documented in this encounter Care Teams Pulp Mill Operator Relationship Specialty Start Date End Date Bin Bowman MD [address] [place] [id number] PCP - General General Internal Medicine 04/21/1707/11 documented as of this encounter
--- OUTSIDE RECORDS SUMMARY | 2024-06-04 20:44 | XMS_ITS | Encounter Summary ---
Author Organization [facility] Address [facility] [place] [address] Care Team Providers Care Loss Prevention/Safety District Manager Name Role Phone Bin Bowman MD Primary Care Provider [phone] Reason for Visit * Reason Onset Date Comments Outside Provider Call 02/12/2021 Encounter Details Date Type Department Care Team (Late st Contact Info) Description 02/12/2021 Telephone Cardiology at [address] [phone] Fadi Escobar MD [facility] [place] [address] Outside Provider Call Social History Tobacco Use Types Packs/Day [...] encounter Miscellaneous Notes * Telephone Encounter - Shruthi Higuera - 02/12/2021 11:[address] Escobar, Please call Dr. Culver at [facility] as soon as available. [phone] Thank you Shruthi * Telephone Encounter - [place], Jami Mcgregor - 02/12/2021 11:[address] Culver office called again. They stated it was urgent to consult with Dr. Escobar on this pt. Heis in the ED at [facility] and has been cardioverted once already today. Please call him at [phone] documented in this encounter Plan of Treatment Upcoming Encounters Date Type Department Care Team (Latest Contact Info) Description 06/07/2024 2:00 PM EDT Office [place] [phone] Joan Castro MD [facility] [place] [address] 06/11/2024 1:03 PM EDT Hospital Encounter Main [place] [phone] Rachel Carrasco MD [facility] [place] [address] 06/11/2024 1:03 PM EDT - 06/11/2024 1:58 PM EDT Surgery Main [place] [phone] Rachel Carrasco MD [facility] [place] [address] CYSTO, REMOVAL OF STENT, FOREIGN BODY OR CALCULUS, SIMPLE (WRVU 2.81) 06/23/2024 10:00 AM EDT Office Visit Cardiology at [address] [phone] Mo Horne MD [facility] [place] [address] Scheduled Procedures Name Priority Associated Diagnoses Date/Ti me CYSTO, REMOVAL OF STENT, FOR EIGN BODY OR CALCULUS, SIMPLE (WRVU 2.81) NEPHROLITHIASIS 06/11/2024 1:03 PM EDT documented as of this encounter Visit Diagnoses Not on filedocumented in this encounter Care Teams Loss Prevention/Safety District Manager Relationship Specialty Start Date End Date Bin Bowman MD [address] [place] [id number] PCP - General General Internal Medicine 04/21/1707/11 documented as of this encounter
--- OUTSIDE RECORDS SUMMARY | 2024-06-04 20:44 | XMS_ITS | Encounter Summary ---
Author Organization [facility] [place] [address] Care Team Providers Care Supervisor Publications Name Role Phone Bin Bowman MD Primary Care Provider [phone] Reason for Visit * Reason Onset Date Comments Follow-up 01/31/2021 Encounter Details Date Type Department Care Team (Late st Contact Info) Description 01/31/2021 Telephone Cardiology at [address] [phone] Lennie Garcia, RN Follow-up Social History Tobacco [...] Telephone Encounter - Lennie Garcia, RN - 01/31/2021 9:51 AM EDTSummary: Follow Up TC from pt's Autumn regarding status of Rolo Pt was put on Lasix on 01/24 for fluid volume status (bilat pleural effusions seen on CXR). Autumn reports today that Rolo is experiencing chest discomfort upon inspiration & that Dr. Culver is sending him for a repeat CXR & further lab work She reports that he has been excessively fatigued as well. She will keep us updated & Rolo cesiae for a f/u on 02/05 with Mary Daley documented in this encounter Plan of Treatment Upcoming Encounters Date Type Department Care Team (Latest Contact Info) Description 06/07/2024 2:00 PM EDT Office Visit [place] [phone] Joan Castro MD [facility] [place] [address] 06/11/2024 1:03 PM EDT Hospital Encounter [place] [phone] Rachel Carrasco MD [facility] [place] [address] 06/11/2024 1:03 PM EDT - 06/11/2024 1:58 PM EDT Surgery [place] [address] Rachel Carrasco MD [facility] [place] [address] CYSTO, REMOVAL OF STENT, FOREIGN BODY OR CALCULUS, SIMPLE (WRVU 2.81) 06/23/2024 10:00 AM EDT Office Visit Cardiology at [address] [place] [phone] Mo Horne MD [facility] [place] [address] Scheduled Procedures Name Priority Associated Diagnoses Date/Ti me CYSTO, REMOVAL OF STENT, FOR EIGN BODY OR CALCULUS, SIMPLE (WRVU 2.81) NEPHROLITHIASIS 06/11/2024 1:03 PM EDT documented as of this encounter Visit Diagnoses Not on filedocumented in this encounter Care Teams Supervisor Publications Relationship Specialty Start Date End Date Bin Bowman MD [address] [place] [address] PCP - General General Internal Medicine 04/21/1707/11 documented as of this encounter
--- OUTSIDE RECORDS SUMMARY | 2024-06-04 20:45 | XMS_ITS | Encounter Summary ---
Author Organization [facility] [place] [address] Care Team Providers Care Delivery And Mail Sorter Name Role Phone Bin Bowman MD Primary Care Provider [phone] Reason for Visit * Auth/Cert Specialty Diagnoses / Procedures Referred By Zeyad mishra Referred To Contact Diagnoses SVT (supraventricular tachycardia) [I47.1], PAF (paroxysmal atrial fibrillation) [I48.0] Procedures ELECTROPHYSIOLOGY PROCEDURE TRANSESOPHAGEAL ECHO DURING CATH/EP PROCEDURE Referral ID Status Reason Start Date Expiration Date Visits Re quested Visits Authorized [id number] 1 1 Encounter Details Date Type Department Care Team (Late st Contact Info) Description 01/10/2021 11:10 AM EST Anesthesia Event [place] [address] Zena Calero MD [facility] [place] [address] Anesthesia Record Procedure Summary Procedure Name Responsible Anesthesiologist Anesthesia Start Time Anesthesia Stop Time ELECTROPHYSIOLOGY PROCEDURE Zena Calero MD 01/10/21 1110 01/10/21 1921 Events Date Time Event Comment 01/10/2021 1052 1053 AN Verify 1110 Start 1115 An Start Data 1121 An Induction 1123 An Intubation 1143 Anesthesia Ready 1302 Break/Relief In I assumed ca re for Break Relief before which we: 1. Identified the patient 2. Identified the responsible provider(s) 3. Reviewed the pertinent medical history 4. Discussed the surgical plan and course 5. Reviewed intra-op anesthesia management and issues during anesthesia 6. Set expectations for the relief (and/or post-procedure) period 7. Allowed opportunity for questions and acknowledgement of understanding VAZQUEZ DENNIOSN CRNA 1334 Break/Relief Out 1606 Handoff Intra-procedure anesthesia care was transferred after review of the patient's history, current anesthetic/surgical status and procedural plan, anticipated issues and expected post-operative course (including disposition.) BOOM PACE MD 1650 Handoff Intra-procedure anesthesia care was transferred after review of the patient's history, current anesthetic/surgical status and procedural plan, anticipated issues and expected post-operative course (including disposition.) PALOMO BROWN CRNA 1746 AN Defib CV @ 200J 190 Extubation/LMA Out 1908 an stop data 1919 Recovery or ICU Handoff Kacey ent care was transferred to the destination unit staff after review of the patient's medical history, current anesthetic/surgical status and plan, according to the Provider Handoff Checklist. 1920 Stop Meds Name Total Midazolam 2 mg fentaNYL 100 mcg Propofol 250 mg Rocuronium 100 mg ePHEDrine 5 mg Ondansetron 8 mg Dexamethasone 8 mg Succinylcholine 200 mg PHENYLephrine INF 11,975 mcg ceFAZolin 6 g Heparin 25,500 Units Heparin INF 10,808.33 Units Dexmedetomidine 30 mcg Protamine 50 mg ketorolac (Toradol) (30 mg/mL) injection 30 mg Sugammadex 400 mg Lactated Ringers 1,000 mL Lactated Ringers 600 mL * Agents Name O2 Air N2O Sevoflurane (et) * Blood No blood administrations on file. Lines, Drains, and Airways Type Details Placement Removal Incision 07/10/20; groin; LDA not present upon assessment; 02/15/21; 221007/10/20 0000 by Autumn Dobson RN 02/15/212210 by Valentin North RN Incision 07/10/20; groin; LDA not present upon assessment; 02/15/21; 221007/10/20 0000 by Autumn Dobson RN 02/15/212210 by Valentin North RN Incision 07/10/20; neck; LDA not present upon assessment; 02/15/21; 221107/10/20 0000 by Autumn Dobson RN 02/15/21 2212 by Valentin North, RN (RETIRED) Peripheral IV Line - Single Lumen 01/10/21; 1055; cephalic vein (lateral side of arm), right; [id number]-tmk-vghxmc catheter system; 20 gauge, 1 in length; rtrn; 01/13/21; 1425 01/10/21 1055 by Viola Connell RN 01/13/21 1425 by Tess Santiago RN ETT Mask Ventilation: No t Attempted (0); ETT Type: Cuffed, Oral; ETT Size: 8 mm; Mac Blade: 4; Notes: Asleep, Pre-O2, Stylette; Attempts: 1; Laryngoscopy Grade: 1; ETT Placement Verified By: Capnometry, Visual; Secured at Teeth: 24 cm; Inserted by: Kevin; Removal Date: 01/10/21; Removal Time: 190501/10/21 1123 by Palomo Brown CRNA 01/10/21 1906 by Jesse Garcia CRNA (RETIRED) Peripheral IV Line - Single Lumen 01/10/21; 1134; metacarpal vein (top of hand), left; lomi-kbr-bskffd catheter system; 16 gauge; 0; removed per patient; 01/11/21; 1223 01/10/21 1134 by Palomo Brown CRNA 01/11/21 1223 by Miriam Chong RN Arterial Line 01/10/21; 1143; radi al artery; 20 gauge; Kevin; Sterile Prep, Sterile Gloves; catheter not patent; 01/11/21; 2330 01/10/21 1143 by Palomo Brown FURNACE ROOM SUPERVISOR 01/11/21 2330 by Twyla William RN Urethral Catheter 01/10/21; 1151; Surg aiden longer than 2 hours; indwelling single lumen catheter; latex; 14; inserted at this facility; 1; 10; 10; intraurethral Xylocaine gel; drainage bag to dependent drainage; urethral catheter removed, tubing intact, per protocol/policy; 01/12/21; 1557 01/10/21 1151 by Db Beck RN 01/12/21 1557 by Alyce Carrillo LNA LDA Cath/EP Sheath 01/10/21; 1320; 8.5 Ukrainian (Fr); Right; Femoral 01/10/21 1320 by Breonna Alcaraz RN 01/10/21 1846 by Breonna Alcaraz RN LDA Cath/EP Sheath 01/10/21; 1325; 8.5 Ukrainian (Fr); Right; Femoral 01/10/21 1325 by Breonna Alcaraz RN 01/10/21 1846 by Beronna Alcaraz RN LDA Cath/EP Sheath 01/10/21; 1333; 8 Fr ench (Fr); Right; Internal jugular 01/10/21 1333 by Db Beck RN 01/10/21 1901 by Breonna Alcaraz RN documented in this encounter Social History [...] OR Notes * Anesthesia Postprocedure Evaluation - Boom Pace MD - 01/10/2021 8:11 PM EST Department of Anesthesiology Post-procedure Note Patient: Rolo Aguilar Procedure Summary Date: 01/10/21 Room / Location: [facility] B-LAB ROOM 4 / [facility] EP LABS Anesthesia Start: 1109 Anesthesia Stop: 1920 Procedures: ELECTROPHYSIOLOGY PROCEDURE (N/A ) TRANSESOPHAGEAL ECHO DURING CATH/EP PROCEDURE (N/A ) Diagnosis: SVT (supraventricular tachycardia) PAF (paroxysmal atrial fibrillation) (SVT (supraventricular tachycardia) [I47.1], PAF (paroxysmal atrial fibrillation) [I48.0]) Providers: Fadi Escobar MD; Jose Anand MD Responsible Provider: Zena Calero MD Anesthesia Type: general ASA Status: 4 All Anesthesia Providers: Anesthesiologist: Boom Pace MD; Zena Calero MD FURNACE ROOM SUPERVISOR: Jesse Garcia CRNA; Palomo Brown CRNA Vitals Value Taken Time BP 110/67 01/10/211999 Temp 36.3 ??C (97.3 ??F) 01/10/21 1945 Pulse 97 01/10/212009 Resp 19 01/10/212009 SpO2 97 % 01/10/212009 Pain Level 0 01/10/21 1915 Vitals shown include unvalidated device data. Patient Location: PACU/[facility] Level of Consciousness: Awake and Alert Pain Management: Satisfactory Analgesia PONV: None Cardiovascular Status: At Baseline and Hemodynamically Stable Respiratory Status: At Baseline and Room Air Postoperative Fluid Status: Intravascular EUvolemia Possible Anesthetic Complications: NONE apparent at time of evaluation Final Primary Anesthesia Type: General (The anesthetic type performed was the same as planned.) Comments: BOOM PACE MD * Anesthesia Preprocedure Evaluation - Zena Calero MD - 01/09/2021 5:10 PM EST Pre-Anesthesia Evaluation for: Rolo Aguilar a 50 y.o. male. Procedure(s): ELECTROPHYSIOLOGY PROCEDURE TRANSESOPHAGEAL ECHO DURING CATH/EP PROCEDURE Patient Active Problem List Diagnosis ??? SVT (supraventricular tachycardia) Added automatically from request for surgery [id number] ??? Bipolar disorder ??? PAF (paroxysmal atrial fibrillation) Added automatically from request for surgery [id number] ??? Flutter-fibrillation ??? H/O cardiac radiofrequency ablation ??? Coronary disease ?? 2017: STEMI. PCI of OM1. EF 60%. Many ER visits to [facility] after this. ??? Heart palpitations ??? Obesity ??? Essential hypertension Past Medical History: Diagnosis Date ??? A-fib ??? Anxiety ??? CAD (coronary artery disease) ??? Flutter-fibrillation ??? GERD (gastroesophageal reflux disease) ??? HLD (hyperlipidemia) ??? Hypertension ??? Seizure Past Surgical History: Procedure Laterality Date ??? PRO LAP, CHOLECYSTECTOMY/GRAPH N/A 07/21/2018 LAPAROSCOPIC CHOLECYSTECTOMY WITH CHOLANGIOGRAM (WRVU 11.47) performed by Colt Hewitt MD [facility] MAIN OR ??? PRO UNLISTED LAPAROSCOPIC PX LVR N/A 07/21/2018 LAPAROSCOPIC LIVER BIOPSY (WRVU 16.52) performed by Colt Hewitt MD at [facility] MAIN OR ??? PRO UPPER GI ENDOSCOPY, BIOPSY N/A 12/29/2017 UPPER GASTROINTESTINAL ENDOSCOPY,WITH BIOPSY SINGLE OR MULTIPLE (WRVU 2.49) performed by Yusuf Tucker MD at [facility] ENDOSCOPY ??? PRO UPPER GI ENDOSCOPY, DIAGNOSTIC N/A 12/29/2017 EGD, UPPER GI ENDOSCOPY performed by Yusuf Tucker MD at [facility] ENDOSCOPY ??? TONSILLECTOMY Social History Tobacco [...] home medications have been reviewed. Physical Exam: No data found. There is no height or weight on file to calculate BMI. Airway Assessment: Mallampati: II TM distance: >3 FB Neck ROM: full Cardiovascular Assessment: Rhythm: regular Pulmonary Assessment: (+) decreased breath sounds Dental Assessment: Misc Assessment: IV access: Peripheral line Anesthesia Plan: ASA 4 general, with a(n) intravenous induction 50 year old male with a PMH significant for HTN, morbid obesity (BMI 66), PILAR (compliant with CPAP), CAD, a-fib/flutter (s/p ablation for flutter), GERD (controlled with medication), anxiety and bipolar disorder who presents for ablation of afib/flutter (with RVR). He states he is in sinus most of the time but does have episodes at home where his heart will 'race' (180 bpm per patient). He denies any recent changes in his health No problems with anesthesia in the past (although had bleeding from his groin with last ablation). NPO Previous record reviewed. DL x 1 with MAC Plan: GETA, arterial line Patient Active Problem List: Coronary disease (I25.10) Heart palpitations (R00.2) Obesity (E66.9) Essential hypertension (I10) H/O cardiac radiofrequency ablation (Z98.890) Flutter-fibrillation (I48.91, I48.92) SVT (supraventricular tachycardia) (I47.1) PAF (paroxysmal atrial fibrillation) (I48.0) Bipolar disorder (F31.9) Region - Other Informed Consent: Anesthetic plan and risks discussed with patient and spouse. Use of blood products discussed with who consented to blood products. Plan discussed with FURNACE ROOM SUPERVISOR. PAT Clinic Note documented in this encounter Plan of Treatment Upcoming Encounters Date Type Department Care Team (Latest Contact Info) Description 06/07/2024 2:00 PM EDT Office Visit [place] [address] Joan Castro MD [facility] [place] [address] 06/11/2024 1:03 PM EDT Hospital Encounter [place] [phone] Rachel Carrasco MD [facility] [place] [address] 06/11/2024 1:03 PM EDT - 06/11/2024 1:58 PM EDT Surgery [place] [phone] Rachel Carrasco MD [facility] [place] [address] CYSTO, REMOVAL OF STENT, FOREIGN BODY OR CALCULUS, SIMPLE (WRVU 2.81) 06/23/2024 10:00 AM EDT Office Visit Cardiology at [address] [address] Mo Horne MD [facility] [place] [address] Scheduled Procedures Name Priority Associated Diagnoses Date/Ti me CYSTO, REMOVAL OF STENT, FOR EIGN BODY OR CALCULUS, SIMPLE (WRVU 2.81) NEPHROLITHIASIS 06/11/2024 1:03 PM EDT documented as of this encounter Visit Diagnoses Not on filedocumented in this encounter Administered Medications Inactive Administered Medications - up to 3 most recent administrations Medication Order MAR Action Action Date Dose Rate Site ceFAZolin (Ancef) 1 g in dextrose 5% 50 mL infusion Intravenous, PRN, Starting on Fri01/10/21 at 1420, Until Fri01/10/21 at 192, Administer over 30 Minutes, Anesthesia Intra-op Given 01/10/2021 6:20 PM EST 3 g Given 01/10/2021 2:20 PM EST 3 g dexamethasone (Decadron) injection Intravenous, PRN, Starting on Fri01/10/21 at 1711, Until Fri01/10/21 at 1928, Anesthesia Intra-op, Routine Given 01/10/2021 5:11 PM EST 8 mg dexmedetomidine (Precedex) (4 mcg/mL) bolus injection (Anesthsia) Intravenous, PRN, Starting on Fri01/10/21 at 1835, Until Fri01/10/21 at 192, Anesthesia Intra-op, Routine Given 01/10/2021 6:39 PM EST 10 mcg Given 01/10/2021 6:35 PM EST 10 mcg Given 01/10/2021 6:31 PM EST 10 mcg ePHEDrine (pf) (5 mg/mL) multi-dose injection Intravenous, PRN, Starting on Fri01/10/21 at 1350, Until Fri01/10/21 at 1928, Anesthesia Intra-op, Routine Given 01/10/2021 1:50 PM EST 5 mg fentaNYL (pf) (50 mcg/mL) multi-dose injection Intravenous, PRN, Starting on Fri01/10/21 at 1120, Until Fri01/10/21 at 192, Anesthesia Intra-op, Routine Given 01/10/2021 11:20 AM EST 100 mcg heparin (porcine) (1,000 units/mL) injection Intravenous, PRN, Starting on Fri01/10/21 at 1514, Until Fri01/10/21 at 1928, Anesthesia Intra-op, Routine Given 01/10/2021 5:36 PM EST 4,000 Uni ts Given 01/10/2021 4:02 PM EST 4,000 Units Given 01/10/2021 3:37 PM EST 7,500 Units heparin (porcine) 50 units/mL in sodium chloride 0.45% 500 mL infusion Intravenous, CONTINUOUS PRN, Starting on Fri01/10/21 at 1517, Until Fri01/10/21 at 192, Anesthesia Intra-op, Routine Rate/Dose Change 01/10/2021 4:02 PM EST 4,000 Units/hr 80 mL/hr Rate/Dose Change 01/10/2021 3:38 PM EST 3,000 Units/hr 60 mL/hr New Bag 01/10/2021 3:17 PM EST 2,500 Units/hr 50 mL/hr ketorolac (Toradol) (30 mg/mL) injection Intravenous, PRN, Starting on Fri01/10/21 at 1838, Until Fri01/10/21 at 192, Anesthesia Intra-op, Routine Given 01/10/2021 6:38 PM EST 30 mg lactated ringers infusion Intravenous, CONTINUOUS PRN, Starting on Fri01/10/21 at 1131, Until Fri01/10/21 at 1928, Anesthesia Intra-op New Bag 01/10/2021 11:31 AM EST lactated ringers infusion Intravenous, CONTINUOUS PRN, Starting on Fri01/10/21 at 1054, Until Fri01/10/21 at 1928, Anesthesia Intra-op New Bag 01/10/2021 10:54 AM EST midazolam (pf) (Versed) (1 mg/mL) multi-dose injection Intravenous, PRN, Starting on Fri01/10/21 at 1110, Until Fri01/10/21 at 192, Anesthesia Intra-op, Routine Given 01/10/2021 11:10 AM EST 2 mg ondansetron (pf) (Zofran) (2 mg/mL) injection Intravenous, PRN, Starting on Fri01/10/21 at 1711, Until Fri01/10/21 at 192, Anesthesia Intra-op, Routine Given 01/10/2021 6:30 PM EST 8 mg PHENYLephrine (Desmond-Synephrine) (80 mcg/mL) in sodium chloride 0.9% 250 mL infusion Intravenous, CONTINUOUS PRN, Starting on Fri01/10/21 at 1200, Until Fri01/10/21 at 192, Anesthesia Intra-op, Routine Rate/Dose Change 01/10/2021 6:27 PM EST 40 mcg/min 30 mL/hr Rate/Dose Change 01/10/2021 5:49 PM EST 25 mcg/min 18.75 m L/hr Rate/Dose Change 01/10/2021 5:23 PM EST 40 mcg/min 30 mL/h r propofoL (Diprivan) 10 mg/mL bolus injection (Anesthesia) Intravenous, PRN, Starting on Fri01/10/21 at 1121, Until Fri01/10/21 at 192, Anesthesia Intra-op Given 01/10/2021 11:21 AM EST 250 mg protamine (10 mg/mL) injection Intravenous, PRN, Starting on Fri01/10/21 at 1836, Until Fri01/10/21 at 192, Anesthesia Intra-op, Routine Given 01/10/2021 6:36 PM EST 50 mg rocuronium (Zemuron) (10 mg/mL) multi-dose injection Intravenous, PRN, Starting on Fri01/10/21 at 1128, Until Fri01/10/21 at 192, Anesthesia Intra-op, Routine Given 01/10/2021 12:28 PM EST 30 mg Given 01/10/2021 11:28 AM EST 70 mg succinylcholine (Anectine;Quelicin) (20 mg/mL) injection Intravenous, PRN, Starting on Fri01/10/21 at 1121, Until Fri01/10/21 at 192, Anesthesia Intra-op, Routine Given 01/10/2021 11:21 AM EST 200 mg sugammadex (Bridion) 100 mg/mL injection Intravenous, PRN, Starting on Fri01/10/21 at 1900, Until Fri01/10/21 at 192, Anesthesia Intra-op, Routine Given 01/10/2021 7:00 PM EST 400 mg documented in this encounter Care Teams Delivery And Mail Sorter Relationship Specialty Start Date End Date Bin Bowman MD [address] [address] PCP - General General Internal Medicine 04/21/1707/11 documented as of this encounter
--- OUTSIDE RECORDS SUMMARY | 2024-06-04 20:45 | XMS_ITS | Encounter Summary ---
Author Organization [facility] Address [facility] [place] [address] Care Team Providers Care Continuous Wave Operator Name Role Phone Bin Bowman MD Primary Care Provider Reason for Visit * Auth/Cert Specialty Diagnoses / Procedures Referred By Zeyad mishra Referred To Contact Diagnoses SVT (supraventricular tachycardia) [I47.1], PAF (paroxysmal atrial fibrillation) [I48.0] Procedures ELECTROPHYSIOLOGY PROCEDURE TRANSESOPHAGEAL ECHO DURING CATH/EP PROCEDURE Referral ID Status Reason Start Date Expiration Date Visits Re quested Visits Authorized [id number] 1 1 Encounter Details Date Type Department Care Team (Latest Contact Info) Description 01/10/2021 9:22 AM EST - 01/13/2021 3:37 PM [facility] Hospital Encounter [place] [id number] Fadi Escobar MD [facility] CARDIOLOGY [place] [id number] Rayo Bianchi MD [facility] [place] [address] Judy Tijerina MD [facility] [place] [address] Jose Anand MD [facility] [place] [address] SVT (supraventricular tachycardia); SVT (supraventricular tachycardia); PAF (paroxysmal atrial fibrillation); Pericardial effusion Discharge Disposition: Home Social History Tobacco Use [...] Sign Reading Time Taken Comments Blood Pressure 126/92 01/13/2021 9:12 AM EST Pulse 97 01/13/2021 9:12 AM EST Temperature 37.1 ??C (98.8 ??F) 01/13/2021 7:35 AM ES T Respiratory Rate 23 01/13/2021 9:12 AM EST Oxygen Saturation 96% 01/13/2021 4:25 AM EST Inhaled Oxygen Concentration - - Weight 197.6 kg (435 lb 10.1 oz) 01/13/2021 5:00 AM EST Height 167.6 cm (5' 5.98) 01/12/2021 1 0:32 AM EST Body Mass Index 70.35 01/12/2021 10:32 AM EST documented in this encounter Discharge Summaries * Jose Anand MD - 01/13/2021 3:37 PM EST Images from the original note were not included. Cardiology - Discharge Summary Patient Name: Rolo Aguilar Patient Age: 50 y.o. Birthdate: 1970 Admit date: 01/10/2021 Discharge date and time: 01/14/2021 Attending Physician: Jose Anand MD Rolo Aguilar is a 50 y.o. male with morbid obesity??and PMH of atrial flutter (on apixaban) and SVT (refractory to cardioversion + ablation, recently being maintained on 400mg amio + metop 50mgQD), CAD (s/p PCI with EMMY x 1 in [facility] in 2016), GERD, ??anxiety, bipolar disorder admitted s/p ablation c/b pericardial effusion s/p pericardiocentesis Follow-up Recommendations for Providers: -pt discharged on high dose aspirin schedule as follows: Take 650 mg three times a day until 01/16. Starting 01/17 take 650 mg two times a day until 01/24. Starting 01/25 take 650 mg daily until 01/31. Starting 02/01 go back to taking 81 mg daily -please evaluate pain and decrease aspirin frequency sooner than outlined plan if pain has resolved -pt to continue colchicine 0.6 mg daily for 3 months (01/11-04/13/21) -f/u LFts, BMP while pt taking colchicine given the interaction with amiodarone -pt discharged with 10 pills of dilaudid (2 mg Q4 hr PRN), assess necessity for additional pain medications -of note, pt taking 100 mg lamotrigine instead of 200 mg as ordered,f/u with patient and adjust as needed Discharge Diagnoses (Hospital Problems) and Secondary Diagnoses (Chronic Problems): Active Hospital Problems Diagnosis ??? SVT (supraventricular tachycardia) ??? PAF (paroxysmal atrial fibrillation) ??? H/O cardiac radiofrequency ablation Resolved Hospital Problems No resolved problems to display. Procedures/Cardiac Studies: cardiac catheterization, echocardiogram (see full report below) History of Presentation: Mr. Aguilar has an extensive history of refractory palpitations and repeat episodes of atrial flutter and SVT with rates reaching 160, refractory to direct cardioversion onset since April 272019 for which he has been frequently hospitalized. He underwent a flutter ablation on 07/10/2020, however had continued episodes atrial flutter with rapid ventricular rates requiring escalating doses ofrate control until he was finally hospitalized on 01/02 and was loaded with amiodarone on infusion and discharged on amiodarone taper, now maintained on amiodarone 400 mg qday along with 50 mg of metoprolol XL. He presented today for repeat elective atrial flutter ablation and reports he was otherwise at his baseline health status prior to his procedure. ?? Pt underwent atrial fibrillation ablation this morning with the initiation of anesthesia at 1110. 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 He was awakened from anesthesia, extubated and taken to PACU recovery hemodynamically stable afebrile, with BP 110/67, HR 97, RR 19, and SpO2 97% satting on room air, upon arrival to PACU at 1913 patient was noted to have low BP down to 81/44 and was initiated on 30 of phenylephrine gtt. Patient was given additional 1 L of LR. BP improved with sukhi with MAPs sustaining above 70s. Cardiology was consulted for transfer to [facility]. ?? Tele shows normal sinus rhythm. Other than some mild soreness in his chest when he takes a deep breath, some mild dizziness, and haziness, patient states he has no acute complaints and is otherwise doing well. He denies an chest pain, shortness of breath, palpitations, weakness, fatigue, headache, nausea, abdominal pain, fevers, chills, myalgias, arthralgias, back pain, numbness, tingling, or anyother acute sx. Hospital Course: #atrial flutter ablation #Pericardial tamponade s/p pericardiocentesis (cardiogenic shock) #HTN #PMH of CAD s/p PCI Mr. Aguilar became hypotensive after his ablation; he then had a bedside echo which showed a moderately sized pericardial effusion with some RA collapse and mild septal flattening. He briefly required pressors. His EKG showed diffuse ST elevation, consistent with pericardial effusion. He then hada formal TTE which showed a moderately sized pericardial effusion. He was treated with mIVFs and underwent pericardiocentesis during which about 350mL of bloody fluid was removed. Pericardial drain was kept in place for 24 hrs with minimal output. He was started on high dose aspirin and colchicine for ongoing pericarditis. His pain was managed with scheduled acetaminophen and PRN dilaudid and lidocaine patches. His apixaban was started the day prior to dc without any changes in pericardial effusio. He was continued on his home amiodarone and atorvastatin. His home lisinopril and metoprolol were also held. #Bipolar Disorder #Anxiety Continued home clonazepam and lamotrigine. Important Studies and Lab Data: Admission Labs: Discharge Labs: Recent Labs 01/13/21 0530 01/12/21 0819 01/11/21 0740 01/10/21 2155 WBC 11.5* 19.3* 13.2* 16.1* HGB 11.4* 12.5* 13.7 13.5* PLATELET 122* 179 224 253 Recent Labs 01/13/21 0530 01/12/21 0355 01/11/21 0740 01/10/21 2155 NA 135 135 134* 138 K 3.8 5.0 4.9 4.3 CL 103 104 104 107 CO2 22 22 19* 18* BUN 14 18 15 15 CREATININE 0.83 0.91 0.86 0.89 GLUCOSE -- -- -- 171 Recent Labs 01/13/21 0530 01/12/21 0355 01/11/21 0740 01/10/21 2155 CALCIUM 8.2* 8.2* 8.1* 8.1* MAGNESIUM 0.92 0.95 -- 0.63* Recent Labs 01/11/21 0640 TROPONINT 1.06* Recent Labs 01/11/21 0640 01/10/21 2155 AST 47* 46* ALT 40 40 ALKPHOS 47 51 BILITOT 0.4 0.5 BILIDIR 0.1 0.2 Recent Labs 01/10/21 2155 INR 1.4 Lab Results Component Value Date CHLPL 89 2020 HDL 35 2020 CHOLHDL 2.5 2020 TRIG 75 2020 LDLCHOL 39 2020 Recent Labs 12/17/20 0311 HA1C 5.2 Studies: 01/13/21 SUMMARY: ?? 1. Limited study to evaluate for pericardial effusion. 2. Patient is with tachyarrhythmia for some portions of the exam. 3. Trivial posterior pericardial effusion, without right-sided chambre collapse nor evidence of enhanced ventricular interdependence. 4. IVC is dilated but non-plethoric. 5. Compared to yesterday's study, there has been no significant change. ? Findings : ?? Study Quality: Technically limited ?? Left Ventricle: The left ventricular chamber size is normal. Left ventricular wall thickness is normal. Global left ventricular wall motion and contractility are probably within normal limits. There are no left ventricular segmental wall motion abnormalities. ?? Right Ventricle: Right ventricular chamber size, wall thickness, and systolic function are within normal limits. The estimated pulmonary artery systolic pressure is 37 mmHg. The estimated right atrial pressure is 8 mmHg. ?? Aortic Valve: The aortic valve is not well visualized. The aortic valve is probably tricuspid. There is no evidence of aortic valve thickening. There is no evidence of aortic valve stenosis. There is no evidence of aortic regurgitation. ?? Mitral Valve: The mitral valve appears normal in structure and function. There is trace mitral regurgitation present. ?? Tricuspid Valve: The tricuspid valve appears normal in structure and function. There is trace tricuspid regurgitation present. ?? Pulmonic Valve: The pulmonic valve is not well visualized. There is no evidence of pulmonic regurgitation. ?? Pericardium: A trivial pericardial effusion is visualized. A pericardial fat pad is visualized. ?? Aorta: The aortic root is normal in size. The ascending aorta is normal in size. ?? Pulmonary Artery: The main pulmonary artery appears normal. ?? Venous: The inferior vena cava appears dilated. There is a greater than 50% respiratory change in the inferior vena cava dimension. ?? Misc: Two-dimensional echo, spectral Doppler and color Doppler performed. ?? Chambers 2D Value Units (Range) IVSd (2D) [...] Ascending Ao 2.81 cm (2 - 3.5) ?? Volumes/Mass Value Units (Range) LA Area 4 [...] g LV mass (2D) index 55.93 g/m2 ?? Diastolic/Systolic Function Value Units (Range) MV E-wave Vmax 0.94 m/sec MV deceleration [id number] msec MV A-wave Vmax 0.66 m/sec MV E:A ratio 1.43 ratio LV septal e' Vmax 0.11 m/sec LV lateral e' Vmax 0.18 m/sec LV average e' Vmax 0.14 m/sec LV E:e' septal ratio8.58 ratio LV E:e' lateral rati5.24 ratio LV average E:e' rati6.51 ratio ?? Aortic Valve Value Units (Range) AV Vmax 1.21 m/sec AV peak gradient 5.82 mmHg LVOT Vmax 0.98 m/sec LVOT peak gradient 3.84 mmHg DOI (Vmax) 0.81 ratio ?? Tricuspid Valve Value Units (Range) TR Vmax 2.69 m/sec TR peak gradient 29 mmHg RAP 8 mmHg RVSP 37 mmHg ? Wall Motion: ?? Segment Name Rest ?? Base-Anteroseptal Normal Base-Anterior Normal Base-Anterolateral Normal Base-Posterolateral Normal Base-Inferior Normal Base-Inferoseptal Normal Mid-Anteroseptal Normal Mid-Anterior Normal Mid-Anterolateral Normal Mid-Posterolateral Normal Mid-Inferior Normal Mid-Inferoseptal Normal [place]-Septal Normal [place]-Anterior Normal [place]-Lateral Normal [place]-Inferior Normal [place]-Tip Normal TTE 01/12/21 1. A trivial pericardial effusion is visualized. 2. Compared with the prior TTE images of 01/11/2021, the amount of pericadial effusion has decreasd. 3. Global left ventricular wall motion and contractility are probably within normal limits. LVEF 70%. 4. Right ventricular global systolic function is probably normal. TTE 01/11/21 SUMMARY: ?? 1. There is a smal to moderate circumferential pericardial effusion most prominent around the right ventricle. There is no RV collapse, but there is echocardiographic evidence for hemodynamic significance (ventricular septal shift with respiration, variation in mitral E velocities, diastolic collapse of the right atrium, restriction to RV diastolic expansion, and IVC plethora). Clinical correlation required. 2. Compared to the limited TTE performed 01/10/2021, the pericardial effusion is better visualized but likely unchanged in size. ? Findings : ?? Study Quality: Technically limited ?? Left Ventricle: The left ventricular chamber size is normal. Mild concentric left ventricular hypertrophy is observed. There is no evidence of LVOT obstruction. There is normal global left ventricular systolic function. The quantitative left ventricular ejection fraction by biplane Malik's method is 63%. There are no left ventricular segmental wall motion abnormalities. Assessment of diastolic function is indeterminate. ?? Left Atrium: The left atrium is normal in size. No atrial septal defect is visualized. ?? Right Ventricle: Right ventricular chamber size, wall thickness, and systolic function are within normal limits. Pulmonary artery hypertension could not be assessed due to inadequate tricuspid regurgitation jet. ?? Right Atrium: The right atrium appears normal. ?? Aortic Valve: The aortic valve is trileaflet. The leaflets are thin with normal excursion. There is no aortic stenosis or regurgitation present. ?? Mitral Valve: The mitral valve appears normal in structure and function. There is no evidence of mitral valve leaflet prolapse. There is trace mitral regurgitation present. ?? Tricuspid Valve: The tricuspid valve appears normal in structure and function. There is trace tricuspid regurgitation present. ?? Pulmonic Valve: The pulmonic valve appears normal in structure and function. ?? Pericardium: The pericardium appears normal and there is no evidence of a pericardial effusion.respiratory variation present There is a moderate circumferential pericardial effusion. 1.0 to 1.6 cm to fat pad. A pericardial fat pad is visualized. Right atrial collapse is present. ?? Aorta: The aortic root is normal in size. The ascending aorta is normal in size. There is no evidence of coarctation of the aorta. ?? Pulmonary Artery: The main pulmonary artery appears normal. ?? Venous: The inferior vena cava appears dilated. There is less than 50% respiratory change in the inferior vena cava dimension consistent with elevated right atrial pressure. ?? Misc: See remainder of report for additional findings. Two-dimensional echo, spectral Doppler and color Doppler performed. ?? Optison contrast (one 3 ml vial) was used to enhance endocardial definition. Excess contrast was discarded. ?? Chambers 2D Value Units (Range) IVSd (2D) 1.24 cm LVPWd (2D) 1.24 cm IVS:LVPW ratio (2D) 1 ratio RWT (2D) 0.55 ratio RWT PW (2D) 0.55 ratio LVIDd (2D) 4.52 cm LVIDs (2D) 3.4 cm LVIDd (2D) index 1.67 cm/m2 LVIDs (2D) index 1.26 cm/m2 LV FS (2D) 24.6 % EF Teichholz (2D) 48.94 % Ao root diameter (2D3.1 cm (2.1 - 3.6) Ascending Ao 3.13 cm (2 - 3.5) ?? Volumes/Mass Value Units (Range) LA Area 4 CH 19 cm2 (<21) LA ESV BP (A/L) inde21.56 ml/m2 LV ESV SP 4CH (MOD) 33.43 ml LV ESV SP 2CH (MOD) 17.63 ml LV EDV BP 72.25 ml LV ESV BP 26.46 ml LV EDV BP index 26.76 ml/m2 LV ESV BP index 9.8 ml/m2 BP EF (MOD) 63.37 % LV mass (2D) 208.07 g LV mass (2D) index 77.06 g/m2 ?? Diastolic/Systolic Function Value Units (Range) MV E-wave Vmax 0.52 m/sec MV deceleration [id number] msec MV A-wave Vmax 0.41 m/sec MV E:A ratio 1.12 ratio LV septal e' Vmax 0.07 m/sec LV lateral e' Vmax 0.07 m/sec LV average e' Vmax 0.07 m/sec LV E:e' septal ratio6.62 ratio LV E:e' lateral rati6.62 ratio LV average E:e' rati6.62 ratio ?? Tricuspid Valve Value Units (Range) IVC diameter 2.6 cm ? Wall Motion: ?? Segment Name Rest ?? Base-Anteroseptal Normal Base-Anterior Normal Base-Anterolateral Normal Base-Posterolateral Normal Base-Inferior Normal Base-Inferoseptal Normal Mid-Anteroseptal Normal Mid-Anterior Normal Mid-Anterolateral Normal Mid-Posterolateral Normal Mid-Inferior Normal Mid-Inferoseptal Normal [place]-Septal Normal [place]-Anterior Normal [place]-Lateral Normal [place]-Inferior Normal [place]-Tip Normal Pericardiocentesis 01/11/21 Conclusions: * Successful placement of pericardial drain for pre-tamponade physiology. Complications/Events: The patient had no complications during these procedures. Recommendations: Based upon the results of this procedure, it was recommended that medical therapy be considered. Comments: Ultrasound access was used to identify the best approach for draining a small circumferential pericardial effusion with tamponade physiology. The subxyphoid approach showed the depth was excessive for reaching with a needle, hence the reagan-apical approach was used, selecting the shortest distance to reach to the pericardium. The skin was prepped and draped in a normal fashion and local anesthesia was applied to the skin. A standard needle was then used to track to the pericardial space. Once entered, a wire was introduced into the pericardial space and confirmed with ultrasound and flouroscopy. Next, the tract was dilated and the pigatil was placed into the pericardial space. Bloody fluid was removed, totalling ~300cc. Echo showed near resolution of the fluid in the pericardial space. Blood pressure was noted to increase by 80 mm Hg. The catheter was sutured in place and sterile dresing were applied. The drain was connected to LCWS and a pleuravac was connected. Successful placement of pericardial drain. ?? Pending Studies and Lab Data: none Discharge Conditions/Prognosis: stable Discharge to: home with assist Discharge Medications: Your Medications New Medications Dose Details colchicine 0.6 mg Tab Commonly known as: Colcrys Take 1 tablet by mouth daily for 87 days. 0.6 mg Quantity: 87 tablet Refills: 0 HYDROmorphone 2 mg Tab Commonly known as: Dilaudid Take 1 tablet by mouth every 6 hours as needed for Pain. 2 mg Quantity: 10 tablet Refills: 0 loperamide 2 mg Cap Commonly known as: Imodium A-D Take 2 capsules by mouth 4 times daily as needed for Diarrhea. 4 mg Quantity: 30 tablet Refills: 0 Continued medications with new dosing Dose Details AMIOdarone 400 mg Tab Commonly known as: PACERONE Take 1 tablet by mouth daily. What changed: ?? how much to take ?? how to take this ?? when to take this ?? additional instructions 400 mg Quantity: 60 tablet Refills: 0 * aspirin EC 81 mg Tbec Take 1 tablet by mouth daily. What changed: Another medication with the same name was added. Make sure you understand how and when to take each. 81 mg Quantity: 30 tablet Refills: 3 * Aspirin 650 mg Tbec Take 1 tablet by mouth daily. What changed: You were already taking a medication with the same name, and this prescription was added. Make sure you understand how and when to take each. 650 mg Quantity: 90 tablet Refills: 0 lamoTRIgine 100 mg Tab Commonly known as: LaMICtal Take 1 tablet by mouth daily. What changed: ?? medication strength ?? how much to take 100 mg Quantity: 30 tablet Refills: 12 * This list has 2 medication(s) that are the same as other medications prescribed for you. Read thedirections carefully, and ask your doctor or other care provider to review them with you. Continued medications, unchanged Dose Details acetaminophen 325 mg Tab Commonly known as: Tylenol Take 2 tablets by mouth every 6 hours as needed for Pain. 650 mg Quantity: 30 tablet Refills: 1 apixaban 5 mg Tab Commonly known as: Eliquis Take 1 tablet by mouth 2 times daily. 5 mg Quantity: 60 tablet Refills: 3 atorvastatin 20 mg Tab Commonly known as: Lipitor Take 1 tablet by mouth every evening. 20 mg Quantity: 30 tablet Refills: 3 clindamycin 1 % Gel Commonly known as: CLINDAGEL APPLY TOPICALLY TO AFFECTED AREA TWICE DAILY Quantity: 30 g Refills: 1 clonazePAM 1 mg Tab Commonly known as: KlonoPIN Take 1 mg by mouth 2 times daily as needed for Anxiety. 1 mg Refills: 0 lisinopriL 2.5 mg Tab Commonly known as: Prinivil;Zestril Take 1 tablet by mouth daily. 2.5 mg Quantity: 90 tablet Refills: 3 metoprolol succinate XL 50 mg Tablet sr Commonly known as: Toprol-XL Take 50 mg by mouth daily. 50 mg Refills: 0 nitroGLYcerin 0.4 mg Subl Commonly known as: Nitrostat DISSOLVE 1 UNDER TONGUE NEEDED Refills: 4 pantoprazole EC 40 mg Tbec Commonly known as: Protonix Take 1 tablet by mouth 2 times daily. 40 mg Quantity: 180 tablet Refills: 3 Updated Allergies/ADRs: Allergies Allergen Reactions ??? Adenosine Palpitations tachycardia ??? Gabapentin ??? Wellbutrin [Bupropion Hcl] ??? Zoloft [Sertraline] Future Appointments and Orders Future Appointments and Orders Future Appointments Provider Department Dept Phone 01/17/2021 4:20 PM Jayne Rogel [place] [facility] [place] [facility] [phone] 02/05/2021 2:15 PM Mary Daley PA [place] [facility] [place] [facility] [phone] General Instructions DISCHARGE INSTRUCTIONS FOLLOWING YOUR ABLATION 1. Medications as prescribed. 2. Follow up with Dr. Escobar or an EP Associate Provider in 2-3 months. You will be contacted witharrangements. 3. Resume anticoagulation as per your home dose. 4. Standard post ablation wound care instructions (see below): Anticoagulation - You have been prescribed anticoagulation to reduce risk of clot formation due to atrial fibrillation/flutter and following the ablation procedure. Catheter Insertion Area Care - You may take a shower if you wish the morning after the procedure. Wash the area with soap and water. - Look for signs of infection over the next several days. - A little spot of blood at the catheter insertion area is not unusual. A bruise or a small lump under the skin is normal; they generally disappear in three or four days. In some cases you may develop a larger bruise that may appear to extend somewhat down your thigh; this is normal and will resolve, generally within 1-2 weeks. - Expect some mild tenderness over the area where the catheter was inserted. This should improve during the 24 to 48 hours after the procedure. - Take Tylenol if needed and contact your doctor if the discomfort worsens. Avoid higher-dose ibuprofen (greater than 400mg twice daily) due to increased bleeding risk while on blood thinners (does not include aspirin). Problems to Watch For If there is bright red blood flowing from the catheter insertion area 1. STOP what you are doing and lie down. 2. Hold pressure steadily on the area for fifteen minutes. 3. Call for help. 4. If the bleeding does not stop in fifteen minutes, call 911. 5. If there is rapid swelling with a ???black and blue?? color at the catheter insertion area, there may be bleeding inside. Call your doctor if there is any increase in size. Check the insertion site for the next few days at home. Signs of infection are: 1. Redness 2. Swelling 3. Yellow, white, green or brown, foul smelling drainage 4. Increased soreness 5. If you think there is an infection, take your temperature. Then call your doctor. The limb on the side where you had the catheter inserted should look and feel normal in its color, sensation and temperature. If your leg becomes cool, pale, blue or changing color with numbness and tingling, contact your doctor. If you feel faint or dizzy, lie down with your feet elevated. Have someone call the doctor. If you are alert, drink fluids. Activity - Do not bend over, strain or lift heavy objects for 48 hours after the procedure. - Do not participate in active sports for 1 week. - Avoid heavy lifting (greater than 10 pounds) for one week following your procedure. Additional discharge instructions: Pt advised to be vigilant for any of the following clinical findings (or anything else out of the ordinary): ?? Bleeding, pain, or swelling at any sheath/catheter insertion site. Sometimes this may develop even days after discharge, and there may then be a need to examine this and alter the anticoagulation medications. It is good to be up and around after the ablation procedure, but heavy lifting and straing should be avoided for the first 3-5 days. ?? Chest discomfort. Inflammation in the form of pericarditis may result in chest pain, which is not uncommon after an ablation procedure for atrial fibrillation. It often may be position-dependent, or will be exacerbated by ventilatory movement. If the patient experiences chest discomfort, it should be medically evaluated to ascertain the significance, and to assess for more serious alternative considerations requiring urgent intervention. If it otherwise is pericarditis, it commonly responds well to anti-inflammatory medication. ?? Atrial dysrhythmias (flutter, fibrillation, tachycardia). Post-procedure atrial dysrhythmias on the basis of temporary inflammation are not uncommon, and are not necessarily indicative of an ineffective procedure... if the dysrhythmia is due to inflammtion, the dysrhythmias likely will cease as the inflammation resolves. The first 1-2 months are the most likely time during which this matter isrelevant. If the patient experiences dysrhythmias, the Cardiac Electrtophysiology Service should becontacted. ?? Side effects of any new medications initiated at the [facility]. The patient should be aware and informed of any significant potential side effects that may be incurred as a result of being on new medication... ?? Sudden weakness, sensory loss, altered behavior or speech. This might be a consequence of a cerbrovascular event (stroke or TIA). This requires urgent and immediate medical attention. ?? Fever or sweats, significant malaise. Possibly a consequence of infection. This requires that the Cardiac Electrophysiology Service be contacted, or otherwise an urgent medical assessment should be obtained. ?? Shortness of breath, increased exertional intolerance. A variety of pulmonary or cardiac processes could be responsible for this. This requires that the Cardiac Electrophysiology Service be contacted, or otherwise an urgent medical assessment should be obtained. ?? Difficulty swallowing, or pain with swallowing. While remote, there nonetheless is a ablation procedural risk of injury to the esophagus; if these symptoms emerge, immediate medical evaluation is urged (with no oral intake pending medical evaluation). This is not an exhaustive list. If the patient experiences anything out of the ordinary post-procedure, he/she is encouraged to contact his/her physician or the Cardiac Electrophysiology Service Triage Nurse ([phone], option 3). Patient Instructions Patient Instructions on Discharge to Home Why you were hospitalized - you were admitted after having a complication from your recent ablation. Due to the small amount of blood around the heart, you have a lot of inflammation surrounding yourheart and will need to stay on colchicine for 3 months. New Medications 1. colchicine??(Colcrys): take daily for the next 3 months 2. HYDROmorphone??(Dilaudid)??-take one pill every 6 hours as needed for pain 3. loperamide??(Imodium A-D)-take as needed CHANGE how you take: 1. AMIOdarone??(PACERONE)??: take 400 mg daily until you see your EP team 2. aspirin EC:do not take you 81 mg aspiring until you finish the high dose aspirin course 3. Aspirin??: Take 650 mg three times a day until 01/16. Starting 01/17 take 650 mg two times a day until 01/24. Starting 01/25 take 650 mg daily until 01/31. Starting 02/01 go back to taking 81 mg daily 4. lamoTRIgine??(LaMICtal)??-take 100 mg daily When to call your doctor: -Chest pain, worsening shortness of breath, fatigue with usual exertion, or new rest/night time symptoms. -If you become short of breath, cannot lie down to sleep, or have swelling in your legs/ankles or abdomen, contact your health care provider. -Call if you have reduced urination during the day or increased urination at night. -Call for signs of increased wound drainage, redness, swelling, or increased pain at the site of your cardiac cath. -Call if you develop a temp >100.5 Activity level: -No heavy lifting (more than five pounds) for 48 hours; no more than 10 pounds for one week. -You may return to work in 1 week. Use common sense. Don't exhaust yourself. -No hunting, skiing, jogging, snow shoveling, snowmobiling, lawn mowing, swimming, golf or tennis until after your return appointment with your family doctor. -Do not ride motorcycles, tractors or horses until cleared by your doctor. Diet: -Heart healthy: low salt, low fat, low concentrated sweets. Remember to avoid added salt, canned foods, processed foods (ie hot dogs, sausage, cold meats), and foods naturally high in salt, such as potato chips or pizza. Driving: -Per your routine after 48 hrs Wound Care: -your dressing may be removed in 24 hours. Site may be washed with soap/water. A dressing does not need to be reapplied unless irritation occurs with underclothes. If irritation occurs, apply clean band-aid daily. Exercise: -Exercise 5-7 days per week as tolerated with gradual increase to 30 minutes per day. Smoking cessation: -If you are currently a smoker, you are strongly urged to stop smoking! Smoking increases the severity and incidence of heart disease, and is a risk factor for cancer and emphysema. Your health care provider can provide specific measures to assist you, including nicotine supplements, anti-anxiety meds, and support groups in your community. Return to work: One week Driving: No driving for 48 hours and until you are done with your dilaudid medications Home oxygen therapy: N/A Arrangements for VNA/home care: none Follow up Appointments: Future Appointments Date Time Provider Department Center 01/17/2021 4:20 PM Jayne Rogel [place]N [facility] 02[place]05/2021 2:15 PM Mary Daley PA [facility] [place] [facility] [place] PCP: Bin Bowman MD @ [phone] Telesales Advisor: Will be assigned at the next cardiology appt Your Inpatient Medical [place] [facility] [place] Name(s) of your inpatient provider(s): Jose Anand MD- Attending physician Thor Wills MD- Underwear Welter Harini Jansen MD-Resident Physician Chavo Dominguez MD- Pull Out Operator Physician Call your doctor if: Chest pain, shortness of breath, pain or swelling in legs occurs. If you have non-emergent questions between now and the time of your follow up appointments: During 8am-5pm Friday through Friday call [phone] to speak with a nurse in the cardiology clinic All other times call [phone] and ask to speak to the rubber tire and tubes supervisor front end driver. For questions regarding this document or issues relating to this hospitalization on the Medical Service, please contact your inpatient physician through the [facility] [employer] Accounts Manager . Issues afterhours and on weekends will be handled by the Telesales Advisor staff on-call. documented in this encounter Discharge Instructions * Discharge Instructions* Maria M Hercules, BABAK - 01/12/2021 4:04 PM EST DISCHARGE INSTRUCTIONS FOLLOWING YOUR ABLATION 1. Medications as prescribed. 2. Follow up with Dr. Escobar or an EP Associate Provider in 2-3 months. You will be contacted witharrangements. 3. Resume anticoagulation as per your home dose. 4. Standard post ablation wound care instructions (see below): Anticoagulation - You have been prescribed anticoagulation to reduce risk of clot formation due to atrial fibrillation/flutter and following the ablation procedure. Catheter Insertion Area Care - You may take a shower if you wish the morning after the procedure. Wash the area with soap and water. - Look for signs of infection over the next several days. - A little spot of blood at the catheter insertion area is not unusual. A bruise or a small lump under the skin is normal; they generally disappear in three or four days. In some cases you may develop a larger bruise that may appear to extend somewhat down your thigh; this is normal and will resolve, generally within 1-2 weeks. - Expect some mild tenderness over the area where the catheter was inserted. This should improve during the 24 to 48 hours after the procedure. - Take Tylenol if needed and contact your doctor if the discomfort worsens. Avoid higher-dose ibuprofen (greater than 400mg twice daily) due to increased bleeding risk while on blood thinners (does not include aspirin). Problems to Watch For If there is bright red blood flowing from the catheter insertion area 1. STOP what you are doing and lie down. 2. Hold pressure steadily on the area for fifteen minutes. 3. Call for help. 4. If the bleeding does not stop in fifteen minutes, call 911. 5. If there is rapid swelling with a ???black and blue?? color at the catheter insertion area, there may be bleeding inside. Call your doctor if there is any increase in size. Check the insertion site for the next few days at home. Signs of infection are: 1. Redness 2. Swelling 3. Yellow, white, green or brown, foul smelling drainage 4. Increased soreness 5. If you think there is an infection, take your temperature. Then call your doctor. The limb on the side where you had the catheter inserted should look and feel normal in its color, sensation and temperature. If your leg becomes cool, pale, blue or changing color with numbness and tingling, contact your doctor. If you feel faint or dizzy, lie down with your feet elevated. Have someone call the doctor. If you are alert, drink fluids. Activity - Do not bend over, strain or lift heavy objects for 48 hours after the procedure. - Do not participate in active sports for 1 week. - Avoid heavy lifting (greater than 10 pounds) for one week following your procedure. Additional discharge instructions: Pt advised to be vigilant for any of the following clinical findings (or anything else out of the ordinary): ?? Bleeding, pain, or swelling at any sheath/catheter insertion site. Sometimes this may develop even days after discharge, and there may then be a need to examine this and alter the anticoagulation medications. It is good to be up and around after the ablation procedure, but heavy lifting and straing should be avoided for the first 3-5 days. ?? Chest discomfort. Inflammation in the form of pericarditis may result in chest pain, which is not uncommon after an ablation procedure for atrial fibrillation. It often may be position-dependent, or will be exacerbated by ventilatory movement. If the patient experiences chest discomfort, it should be medically evaluated to ascertain the significance, and to assess for more serious alternative considerations requiring urgent intervention. If it otherwise is pericarditis, it commonly responds well to anti-inflammatory medication. ?? Atrial dysrhythmias (flutter, fibrillation, tachycardia). Post-procedure atrial dysrhythmias on the basis of temporary inflammation are not uncommon, and are not necessarily indicative of an ineffective procedure... if the dysrhythmia is due to inflammtion, the dysrhythmias likely will cease as the inflammation resolves. The first 1-2 months are the most likely time during which this matter isrelevant. If the patient experiences dysrhythmias, the Cardiac Electrtophysiology Service should becontacted. ?? Side effects of any new medications initiated at the [facility]. The patient should be aware and informed of any significant potential side effects that may be incurred as a result of being on new medication... ?? Sudden weakness, sensory loss, altered behavior or speech. This might be a consequence of a cerbrovascular event (stroke or TIA). This requires urgent and immediate medical attention. ?? Fever or sweats, significant malaise. Possibly a consequence of infection. This requires that the Cardiac Electrophysiology Service be contacted, or otherwise an urgent medical assessment should be obtained. ?? Shortness of breath, increased exertional intolerance. A variety of pulmonary or cardiac processes could be responsible for this. This requires that the Cardiac Electrophysiology Service be contacted, or otherwise an urgent medical assessment should be obtained. ?? Difficulty swallowing, or pain with swallowing. While remote, there nonetheless is a ablation procedural risk of injury to the esophagus; if these symptoms emerge, immediate medical evaluation is urged (with no oral intake pending medical evaluation). This is not an exhaustive list. If the patient experiences anything out of the ordinary post-procedure, he/she is encouraged to contact his/her physician or the Cardiac Electrophysiology Service Triage Nurse ([phone], option 3). * Patient Instructions* Harini Jansen - 01/13/2021 2:01 PM EST Patient Instructions on Discharge to Home Why you were hospitalized - you were admitted after having a complication from your recent ablation. Due to the small amount of blood around the heart, you have a lot of inflammation surrounding yourheart and will need to stay on colchicine for 3 months. New Medications 1. colchicine??(Colcrys): take daily for the next 3 months 2. HYDROmorphone??(Dilaudid)??-take one pill every 6 hours as needed for pain 3. loperamide??(Imodium A-D)-take as needed CHANGE how you take: 1. AMIOdarone??(PACERONE)??: take 400 mg daily until you see your EP team 2. aspirin EC:do not take you 81 mg aspiring until you finish the high dose aspirin course 3. Aspirin??: Take 650 mg three times a day until 01/16. Starting 01/17 take 650 mg two times a day until 01/24. Starting 01/25 take 650 mg daily until 01/31. Starting 02/01 go back to taking 81 mg daily 4. lamoTRIgine??(LaMICtal)??-take 100 mg daily When to call your doctor: -Chest pain, worsening shortness of breath, fatigue with usual exertion, or new rest/night time symptoms. -If you become short of breath, cannot lie down to sleep, or have swelling in your legs/ankles or abdomen, contact your health care provider. -Call if you have reduced urination during the day or increased urination at night. -Call for signs of increased wound drainage, redness, swelling, or increased pain at the site of your cardiac cath. -Call if you develop a temp >100.5 Activity level: -No heavy lifting (more than five pounds) for 48 hours; no more than 10 pounds for one week. -You may return to work in 1 week. Use common sense. Don't exhaust yourself. -No hunting, skiing, jogging, snow shoveling, snowmobiling, lawn mowing, swimming, golf or tennis until after your return appointment with your family doctor. -Do not ride motorcycles, tractors or horses until cleared by your doctor. Diet: -Heart healthy: low salt, low fat, low concentrated sweets. Remember to avoid added salt, canned foods, processed foods (ie hot dogs, sausage, cold meats), and foods naturally high in salt, such as potato chips or pizza. Driving: -Per your routine after 48 hrs Wound Care: -your dressing may be removed in 24 hours. Site may be washed with soap/water. A dressing does not need to be reapplied unless irritation occurs with underclothes. If irritation occurs, apply clean band-aid daily. Exercise: -Exercise 5-7 days per week as tolerated with gradual increase to 30 minutes per day. Smoking cessation: -If you are currently a smoker, you are strongly urged to stop smoking! Smoking increases the severity and incidence of heart disease, and is a risk factor for cancer and emphysema. Your health care provider can provide specific measures to assist you, including nicotine supplements, anti-anxiety meds, and support groups in your community. Return to work: One week Driving: No driving for 48 hours and until you are done with your dilaudid medications Home oxygen therapy: N/A Arrangements for VNA/home care: none Follow up Appointments: Future Appointments Date Time Provider Department Center 01/17/2021 4:20 PM Jayne Rogel APRN [facility] [place] 02[place]05/2021 2:15 PM Mary Daley PA [facility] [place] [place] [place] PCP: Bin Bowman MD @ [phone] Telesales Advisor: Will be assigned at the next cardiology appt Your Inpatient Medical [place] [facility] [place] Name(s) of your inpatient provider(s): Jose Anand MD- Attending physician Thor Wills MD- Underwear Welter Harini Jansen MD-Resident Physician Chavo Dominguez MD- Pull Out Operator Physician Call your doctor if: Chest pain, shortness of breath, pain or swelling in legs occurs. If you have non-emergent questions between now and the time of your follow up appointments: During 8am-5pm Friday through Friday call [phone] to speak with a nurse in the cardiology clinic All other times call [phone] and ask to speak to the rubber tire and tubes supervisor front end driver. documented in this encounter Medications at Time [...] as of this encounter Progress Notes * Nayan Guerrero, PT - 01/13/2021 3:37 PM EST Physical Therapy Note Treatment Number PT: 2 History of Present Illness: 50 y.o. male with a history of adenosine-sensitive SVT, Atrial fibrillation and atrial flutter with RVR on amiodarone, who was electively admitted for ablation on 01/10/21. Complicated by pericardial effusion treated with drain. Referred to PT for evaluation. Interval History: Periods of tachycardia with activity. Pericardial drain removed. Subjective: I don't have any stairs, I don't need to practice. My will keep an eye on me. Objective: Patient seen for physical therapy and demonstrated the following: Pain: Pain improved now that drain is out. Vitals: On room air. Min light headedness with initial standing, BP below after walking, symptoms subsided with activity. SpO2: 94 % HR: Burst of 140 bpm with walking, but down to 80's with brief standing rest BP: 124/82 mmHg standing Bed Mobility: Supine to sit: nt Sit to Supine: nt Transfers: Sit to Stand: ind Stand to Sit: ind Balance: Good without a device in standing Gait: Pt walked 150' with one brief rest when HR up. Pace slow and cautious, but independent. No device needed. Pt was instructed to move slowly when changing positions at home. Pt left in cc with call weeks within reach, all needs met, RN aware. Assessment: Rolo Aguilar was seen today for physical therapy treatment session for continuation of POC. Pt has met all PT goals and is independent with mobility. He stated that he does not haveto go up and down stairs at home. He feels that he will be able to manage at home with his 's assist. He is walking independently and can feel with HR increases and he should rest. Therapy Plan: D/c PT Discharge Recommendations: Anticipated Discharge Disposition (PT): home with assist when medically ready for hospital discharge. Discussed with pt and RN. Equipment needs: none Physical Therapy Goals: met Total Minutes, Physical Therapy: 20 NAYAN GUERRERO, PT Pager: [phone] Physical Therapy Inpatient Rehabilitation Department * Tess Santiago RN - 01/13/2021 3:18 PM EST Pt had frequent episodes of tachycardia beginning at 445 this morning. This shift the episodes became more frequent, the team was notified, EKG performed showing sinus tach. A flutter noted on tele midmorning. Team notified. PO amio and metoprolol admin. Pt walked w PT this morning. HR up to 150 for short periods of time. BP remained stable. Pt reported dizziness. Pt did well walking with PT. Having several episodes of diarrhea, PRN immodium ordered. Pt being discharged to home. Plan to follow up w cardiology and EP. IVs and tele removed. Pt brought to [facility] in wheelchair by staff with belongings. * Jose Anand MD - 01/13/2021 12:55 PM EST Inpatient Cardiology Progress Note ID: Rolo Aguilar is a 50 y.o. male with morbid obesity and PMH of atrial flutter (on apixaban) and SVT (refractory to cardioversion + ablation, recently being maintained on 400mg amio + metop 50mg QD), CAD (s/p PCI with EMMY x 1 in [facility] in 2017), GERD, anxiety, bipolar disorder. Found to have pericardial effusion s/p pericardiocentesis 24 hr events: -frequent atrial tachycardia with symptomatic palpitations per the patient -he denies any chest pain or SOB -complains of diarrhea, no abd pain or nausea -pleuritic pain improving Vital Signs: Temp: [36.7 ??C (98.1 ??F)-37.2 ??C (99 ??F)] Heart Rate: [72-140] Resp: [11-24] BP: (105-138)/(56-92) SpO2: [95 %-99 %] Heart Rate from SpO2: [69 bpm-94 bpm] Exam: General: Morbidly obese well-appearing middle-aged male in NAD Head: NCAT Eyes: EOMI,no scleral icterus Oropharynx: MMM, no erythema, exudates, or lesions, good dentition Neck: Supple, trachea midline, no thyromegaly; right prior IJ site has clean dressing without bleeding or purulence Lungs: CTAB Heart: RRR w/o M/R/G Abdomen: Soft, NT/ND, NABS Extremities: no LE edema, R groin site clean Neuro: Cranial Nerves 2-12 grossly intact; no gross focal deficits Skin: No gross rashes, lesions, or ecchymoses Intake/Output Summary (Last 24 hours) at 01/13/2021 1255 Last data filed at 01/13/2021 1100 Gross per 24 hour Intake 2488 ml Output 1600 ml Net 888 ml cumulative I/O's since admission: Patient Vitals for the past 168 hrs: Weight 01/13/21 0500 (!) 197.6 kg (435 lb 10.1 oz) 01/12/21 0641 (!) 198 kg (436 lb 8.2 oz) 01/11/21 0630 (!) 196.6 kg (433 lb 6.8 oz) 01/10/21 1006 (!) 184.7 kg (407 lb 3.2 oz) Labs Recent Labs 01/13/21 0530 01/12/21 0819 01/11/21 0740 WBC 11.5* 19.3* 13.2* HGB 11.4* 12.5* 13.7 HCT 35.1* 38.9* 42.2 PLATELET 122* 179 224 Recent Labs 01/13/21 0530 01/12/21 0355 01/11/21 0740 NA 135 135 134* K 3.8 5.0 4.9 CL 103 104 104 CO2 22 22 19* BUN 14 18 15 CREATININE 0.83 0.91 0.86 Recent Labs 01/11/21 0640 01/10/21 2155 AST 47* 46* ALT 40 40 ALKPHOS 47 51 BILITOT 0.4 0.5 BILIDIR 0.1 0.2 Recent Labs 01/13/21 0530 01/12/21 0355 01/11/21 0740 01/10/21 2155 CALCIUM 8.2* 8.2* 8.1* 8.1* MAGNESIUM 0.92 0.95 -- 0.63* Recent Labs 01/10/21 2155 INR 1.4 PT 15.6* PTT 66* Recent Labs 01/11/21 0640 TROPONINT 1.06* Recent Labs 01/11/21 0745 POCGLU 136 Imaging/Studies: TTE 01/11/21: SUMMARY: ?? 1. There is a smal to moderate circumferential pericardial effusion most prominent around the right ventricle. There is no RV collapse, but there is echocardiographic evidence for hemodynamic significance (ventricular septal shift with respiration, variation in mitral E velocities, diastolic collapse of the right atrium, restriction to RV diastolic expansion, and IVC plethora). Clinical correlation required. 2. Compared to the limited TTE performed 01/10/2021, the pericardial effusion is better visualized but likely unchanged in size. MEDS: Infusions: Scheduled: ??? metoprolol tartrate 12.5 mg Oral Q6H VANESA ??? lidocaine 3 patch Transdermal Q24H And ??? lidocaine 3 patch Transdermal Q24H ??? acetaminophen 975 mg Oral Q6H VANESA ??? apixaban 5 mg Oral BID ??? lamoTRIgine 100 mg Oral Daily ??? aspirin EC 650 mg Oral TID ??? colchicine 0.6 mg Oral Daily ??? atorvastatin 20 mg Oral QPM ??? pantoprazole EC 40 mg Oral BID ??? sodium chloride 0.9 % (flush) 5 mL Intravenous BID ??? sodium chloride 0.9 % (flush) 5 mL Intravenous BID ??? AMIOdarone 400 mg Oral Daily PRN: loperamide, HYDROmorphone, midazolam (PF), atropine, clonazePAM, sodium chloride 0.9 % (flush), lidocaine, sodium chloride 0.9 % (flush), nitroGLYcerin ASSESSMENT: Rolo Aguilar is a 50 y.o. male s/p ablation w/ post-procedure hypotension w/ hemopericardium s/p pericardiocentesis. Pt HD stable after pericardial drain was removed. He tolerated eliquis initiation without change in hemoglobin. His pain is well controlled therefore plan to discharge with close f/u with EP. Pt to get a ziopatch in 1 month and a f/u with Dr. Escobar. PLAN: #Pericardial tamponade (cardiogenic shock) after ablation #Atrial Flutter s/p ablation #Hx of HTN #PMH of CAD s/p PCI - TTE today to reassess effusion looks stable today - colchicine (pericarditis) 0.6 mg QD for 3 months -immodium for GI side effects - high dose ASA (pericarditis) with plans to decreased frequency weekly - continue home lisinopril 2.5 mg - start home metoprolol XL 50 mg - continue amiodarone 400 mg qd - continue atorvastatin 20 mg qhs - continue home apixaban for now ?? #Bipolar Disorder #Anxiety - continue home clonazepam 1 mg bid prn - continue home lamotrigine 100 mg qd ?? #GERD - continue pantoprazole 40 mg bid ?? #R/o Infection - BCX??x 2 DC today to home with assist Harini Jansen MD PGY3, Cardiology S2 01/13/2021 CARDIOLOGY ATTENDING NOTE Patient: Rolo Aguilar Date of Service: 01/13/2021 Date of Admission: 01/10/2021 Length of Stay Hospital Day 1 day Please see the above note by Dr. Jansen for details. I have interviewed and examined the patient independently and I concur with the assessment and plan. The case was discussed on cardiology rounds and we reviewed the plan of care with the team and patient. In addition, I certify that I am a D-H credentialed attending provider with admitting privileges and that the patient meets or has met medicalnecessity to require an inpatient IPI level of care meeting a minimum of two midnights ?? Mr. Aguilar is a 50 year old man who presented with AF/AT ablation with post- procedure hypotension requiring pressors. TTE with moderate circumferential pericardial effusion with hemodynamic significance, consistent with cardiogenic shock. He underwent pericardiocentesis on 01/11 with 300cc of bloody fluid removed. Drain initially left in place with minimal output, taken out on 01/12. TTE today with trial effusion. His pain has improved with high dose ASA, colchicine. He does have pAF on tele, onamiodarone and beta-helen for this. Stable for discharge today with outpatient follow-up. ?? Rest per Dr. Jansen. Jose Anand MD, MPH, RPVI, [facility] Pager [phone] Cardiovascular Division ChairFashion Merchandisertape [place] [address] * Mahogany Ferreira OT - 01/13/2021 12:16 PM EST Occupational Therapy Note 01/13/21 1214 OT Time and Intention Document Type contact Total Minutes, Occupational Therapy 0 Comment, Session Not Performed Order received. Chart reviewed. Spoke with both RN and PT. No acute OT needs. Pt mobilizing independently/supervised, and managing own ADLs. Will sign off. Mahogany Ferreira, OTR Pager [phone] * Nilsa Goldstein MD - 01/13/2021 10:45 AM EST Inpatient Cardiology Progress Note Patient Name: Rolo Aguilar Responsible Attending: Jose Anand MD EP Attending: Nilsa Goldstein MD Reason for continued hospitalization: Evaluation and management of pericardial effusion post ablation Active Problems: Active Hospital Problems Diagnosis ??? SVT (supraventricular tachycardia) Added automatically from request for surgery [id number] ??? PAF (paroxysmal atrial fibrillation) Added automatically from request for surgery [id number] ??? H/O cardiac radiofrequency ablation Resolved Hospital Problems No resolved problems to display. Interval History: He underwent an elective atrial flutter ablation on 01/10/21 and developed sustained hypotension post-procedure requiring pressor support. An echocardiogram showed pericardial effusion for which a pericardial drain was placed with ~300 mL output. He was transferred to the cardiology service for help in management on 01/11/21. The pericardial drain was removed 01/12/21. Apixaban was restarted last night. He is feeling much improved today with much less pain and able to deep breathe without pain. He slept last night until ~3 am when he felt dizziness with a return to SVT/AT/AFL 130-150 bpm. He is having an echocardiogram this morning. Review of Systems: Constitutional: - fatigue, - fever, - chills Respiratory: - shortness of breath, - cough, - apnea, - wheezing Cardiovascular: - chest pain, - palpitations, - unusual rates, - edema Gastrointestinal: - nausea, - vomiting, - abdominal pain, - diarrhea Neurological: - lightheadedness, - dizziness, - syncope, - weakness Psychiatric: - anxious Telemetry: HR: SR 70-100 with intermittent SVT/ atrial [id number] bpm. Meds: Scheduled Meds: ??? metoprolol tartrate 12.5 mg Oral Q6H VANESA ??? lidocaine 3 patch Transdermal Q24H And ??? lidocaine 3 patch Transdermal Q24H ??? acetaminophen 975 mg Oral Q6H VANESA ??? apixaban 5 mg Oral BID ??? lamoTRIgine 100 mg Oral Daily ??? aspirin EC 650 mg Oral TID ??? colchicine 0.6 mg Oral Daily ??? atorvastatin 20 mg Oral QPM ??? pantoprazole EC 40 mg Oral BID ??? sodium chloride 0.9 % (flush) 5 mL Intravenous BID ??? sodium chloride 0.9 % (flush) 5 mL Intravenous BID ??? AMIOdarone 400 mg Oral Daily Continuous Infusions: PRN Meds:HYDROmorphone, midazolam (PF), atropine, clonazePAM, sodium chloride 0.9 % (flush), lidocaine, sodium chloride 0.9 % (flush), nitroGLYcerin Physical Exam: Vital Signs: Last value Range last 8 hrs Temperature Temp: 37.1 ??C (98.8 ??F) Temp: [37.1 ??C (98.8 ??F)] Heart Rate Heart Rate: 97 Heart Rate: [73-140] Blood Pressure BP: (!) 126/92 BP: (113-126)/(70-92) Respiratory Rate Resp: 23 Resp: [18-23] SpO2 SpO2: 96 % SpO2: [96 %] General- No acute distress, laying comfortably in bed HEENT- Head atraumatic, normocephalic Skin- Warm and dry Neck- No JVD noted Cardiovascular- S1/S2 regular rate and rhythm. No murmur, rub or gallop Lungs- Clear to auscultation bilaterally Extremities- Pulses equal bilaterally. No edema noted. Neuro- A&Ox3 Lab Comments: Recent Labs 01/13/21 0530 01/12/21 0819 01/11/21 0740 WBC 11.5* 19.3* 13.2* HGB 11.4* 12.5* 13.7 HCT 35.1* 38.9* 42.2 PLATELET 122* 179 224 Recent Labs 01/10/21 2155 INR 1.4 Recent Labs 01/13/21 0530 01/12/21 0355 01/11/21 0740 NA 135 135 134* K 3.8 5.0 4.9 CL 103 104 104 CO2 22 22 19* BUN 14 18 15 CREATININE 0.83 0.91 0.86 Recent Labs 01/11/21 0640 01/10/21 2155 AST 47* 46* ALT 40 40 ALKPHOS 47 51 BILITOT 0.4 0.5 BILIDIR 0.1 0.2 Recent Labs 01/13/21 0530 01/12/21 0355 01/11/21 0740 01/10/21 2155 CALCIUM 8.2* 8.2* 8.1* 8.1* MAGNESIUM 0.92 0.95 -- 0.63* Recent Labs 01/11/21 0640 TROPONINT 1.06* Pertinent Radiographic/Diagnostic Results: Echocardiogram results pending. Assessment: Rolo Aguilar is a 50 y.o. male with a history of adenosine- sensitive SVT, Atrial fibrillation and atrial flutter with RVR on amiodarone, who was electively admitted for ablation on 01/10/21. He takes apixaban for anticoagulation. He is improving post pericardial drain removal and may tentatively go home today if echocardiogram is stable. Discussed with team. Plan for follow up with Zio monitor in 1 month as outpatient and then follow up with Dr. Fadi Escobar for results a month later. Recommend: 1. Continue apixaban. 2. Zio monitor in 1 month post discharge. 3. Follow up with Dr. Escobar for results 1 month after Zio. Maria M Hercules, BABAK 01/13/2021 Pager: [phone] Addendum Stable, overall condition appears to have improved Likely ready for discharge soon with outpatient follow up NILSA GOLDSTEIN MD * Tess Santiago, RN - 01/12/2021 6:56 PM EST Patient's pain better managed throughout the day today with scheduled PO pain meds; only requiring IV dilaudid 1x. Pt up w PT and RN assistance ambulating in hallway. Pt tachycardic up to 140 w some dizziness with ambulation. BP elevated after walking. SR w ST elevation on tele for most of shift. Pericardial drain pulled this afternoon. Dressing CDI. Lobato discontinued; pt spontaneously in urinal. IVF continued per team. Team aware of low urine output w IVF. Echo performed this AM. Plan for repeat echo tomorrow. Plan to restart aristeo payne. * Fadi Escobar MD - 01/12/2021 2:48 PM EST Images from the original note were not included. Cardiac Electrophysiology Progress Note Problem List: Patient Active Problem List Diagnosis ??? ','SVT (supraventricular tachycardia) Overview Note: Added automatically from request for surgery [id number] ??? Bipolar disorder ??? PAF (paroxysmal atrial fibrillation) Overview Note: Added automatically from request for surgery [id number] ??? Flutter-fibrillation ??? H/O cardiac radiofrequency ablation ??? Coronary disease Overview Note: ?? 2017: STEMI. PCI of OM1. EF 60%. Many ER visits to [facility] after this. ??? Heart palpitations ??? Obesity ??? Essential hypertension Brief HPI: 50 y.o. male with a history of adenosine-sensitive SVT, Atrial fibrillation and atrial flutter with RVR on amiodarone, who was electively admitted for ablation on 01/10/21. He takes apixabanfor anticoagulation. His other history includes morbid obesity, CAD (PCI in 2017), GERD, anxiety, bipolar disorder. He described painful inspiratory breathing that has improved today. He feels that his ability to deep breathe has improved by 25%. His chest pain is more relieved this afternoon as well. He is looking forward to some sleep as he has only slept about 2 hours in 2 days. Interval History: He underwent an elective atrial flutter ablation on 01/10/21 and developed sustained hypotension post-procedure requiring pressor support. An echocardiogram showed pericardial effusion for which a pericardial drain was placed with ~ 250 mL output. He was transferred to the cardiology service for help in management on 01/11/21. In the interim, his pericardial drain has been removed today. He denies palpitations or issues with access sites. ROS: Constitutional: - fatigue, - fever, - chills Respiratory: + shortness of breath, - cough, - apnea, - wheezing Cardiovascular: + chest pain, - palpitations, - unusual rates Gastrointestinal: - nausea, - vomiting, - abdominal pain, - diarrhea Neurological: - lightheadedness, - dizziness, - syncope, - weakness Psychiatric: - anxious Vitals: Last Set of Vitals and range of vitals over past 24 hours: Last value Range last 24 hrs Temperature Temp: 36.5 ??C (97.7 ??F) Temp: [36.5 ??C (97.7 ??F)-37 ??C (98.6 ??F)] Heart Rate Heart Rate: 93 Heart Rate: [79-126] Blood Pressure BP: 111/62 BP: (111-142)/(62-94) Respiratory Rate Resp: 19 Resp: [15-25] SpO2 SpO2: 96 % SpO2: [88 %-99 %] Physical Exam: General- No acute distress, laying comfortably in bed Skin- Warm and dry Neck- No JVD noted. Right IJ dressing CDI. Cardiovascular- S1/S2 regular rate and rhythm. No murmur, rub or gallop Lungs- Clear but diminished bases to auscultation bilaterally Extremities- Pulses equal bilaterally. No edema noted. R groin dressing removed, site CDI. Neuro- A&Ox3 EKG - sinus rhythm rate 96 bpm. MA 154ms, QRS 94ms, QT 354 ms, QTc 447 ms, diffuse ST elevation in lateral and inferior leads. Telemetry- SR 70s-90s bpm. Laboratory (Last 24 Hours): Lab Results Component Value Date WBC 19.3 (H) 01/12/2021 HGB 12.5 (L) 01/12/2021 HCT 38.9 (L) 01/12/2021 PLATELET 179 01/12/2021 Recent Labs 01/10/21 2155 INR 1.4 Lab Results Component Value Date NA 135 01/12/2021 K 5.0 01/12/2021 CL 104 01/12/2021 BUN 18 01/12/2021 CREATININE 0.91 01/12/2021 MAGNESIUM 0.95 01/12/2021 Diagnostics: Transthoracic Echo 01/12/21: SUMMARY: ??1. A trivial pericardial effusion is visualized. 2. Compared with the prior TTE images of 01/11/2021, the amount of pericadial effusion has decreased. 3. Global left ventricular wall motion and contractility are probably within normal limits. LVEF 70%. 4. Right ventricular global systolic function is probably normal. Procedures: EPS/Ablation 01/10/21: Brief Op Note: Procedure: Electrical isolation of the pulmonary veins,mitral annular flutter ablation Anesthesia: General Findings: Atrial fibrillation,mitral annular flutter Complications: None apparent Assessment: 50 y.o. male with a history of adenosine-sensitive SVT, atrial fibrillation and atrial flutter withRVR on amiodarone, who was electively admitted for ablation on 01/10/21. He takes apixaban for anticoagulation. Mr. Aguilar is improving post pericardiocentesis, with pericardial drain removed today. Reviewed post-ablation discharge instructions. Remains in sinus rhythm. Echocardiogram tomorrow and timing ofrestarting apixaban being discussed with team. Recommend Zio monitor in 1 month after discharge andfollow up with Dr. Escobar for results. Plan: 1. Reviewed post-ablation instructions- see multidisciplinary instructions for details. 2. Follow up for Zio in 1 month [address] then [address] Dr. Escobar for results. Maria M Hercules, VICE PRESIDENT PLANNING 01/12/2021 Pager: [phone] Cardiac Electrophysiology Attending This patient was seen and evaluated by me several times throughout the day today. He did not sleep well last night again due to positional chest discomfort, but he finally slept this morning (prior to the chest tube removal) and a good part of this afternoon. After an initial [address] vicente yesterday afternoon, there has been no more drainage. An echocardiogram was obtained this AM, which I personally reviewed with Dr. Mesa - only a 'trivial' pericardial effusion was noted. Consequently, Dr. Amato oversaw removal of the chest tube, which resulted in significant relief for Mr. Aguilar, though he still has some positional pericarditis. I later discussed recommendations for reinitiation of anticoagulation with the Cardiology team, as well as careful use of NSAID medicationalong with the colchicine. Mr. Mcbride has only ambulated once (still with the chest drain at the time), so I encouraged himabout the importance of this. Violet, his nurse, has been instrumental in getting him a more favorable space (with a window) for his recovery, rather than his current location. I agree with principal findings documented above. The impression and plan incorporate my input. * Macey Alarcon, PT - 01/12/2021 1:20 PM EST Physical Therapy Evaluation Patient profile: Rolo Aguilar is a 50 y.o. male with morbid obesity??and PMH of atrial flutter (on apixaban) and SVT (refractory to cardioversion + ablation, recently being maintained on 400mg amio + metop 50mg QD), CAD (s/p PCI with EMMY x 1 in LCX in 2017), GERD, ??anxiety, bipolar disorder.Found to have pericardial effusion s/p pericardiocentesis w/ pigtail in place. . Patient with the following active problems: Past Medical History: Diagnosis Date ??? A-fib ??? Anxiety ??? CAD (coronary artery disease) ??? Flutter-fibrillation ??? GERD (gastroesophageal reflux disease) ??? HLD (hyperlipidemia) ??? Hypertension ??? Seizure Past Surgical History: Procedure Laterality Date ??? PRO LAP, CHOLECYSTECTOMY/GRAPH N/A 07/21/2018 LAPAROSCOPIC CHOLECYSTECTOMY WITH CHOLANGIOGRAM (WRVU 11.47) performed by Colt Hewitt MD [facility] MAIN OR ??? PRO UNLISTED LAPAROSCOPIC PX LVR N/A 07/21/2018 LAPAROSCOPIC LIVER BIOPSY (WRVU 16.52) performed by Colt Hewitt MD at [facility] MAIN OR ??? PRO UPPER GI ENDOSCOPY, BIOPSY N/A 12/29/2017 UPPER GASTROINTESTINAL ENDOSCOPY,WITH BIOPSY SINGLE OR MULTIPLE (WRVU 2.49) performed by Yusuf Tucker MD at [facility] ENDOSCOPY ??? PRO UPPER GI ENDOSCOPY, DIAGNOSTIC N/A 12/29/2017 EGD, UPPER GI ENDOSCOPY performed by Yusuf Tucker MD at [facility] ENDOSCOPY ??? TONSILLECTOMY Active Non-Hospital Problems Diagnosis ??? Bipolar disorder ??? Flutter-fibrillation ??? Coronary disease ??? Heart palpitations ??? Obesity ??? Essential hypertension Social History: Pt resides with and mother in a house with 5 stairs to enter with L sided railing. Pt has a flt to basement where he resides with L sided railing. 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 Precautions/Special Considerations: Fall risk, lobato,chest tube,PIV,significant pain Mobility and Positioning Recommendations: ?? Pt. to utilize no device and CTG for ambulation and transfers with nursing. ?? Please encourage up to chair for meal times as able. ?? Pt encouraged to ambulate frequently with staff, getting into the bathroom for toileting and walking out in the yun >/= 3 times daily as able. Subjective: ???I am just in so much pain, I can't take a deep breath?? Objective: Pt seen for evaluation today. Pain- 08/19 pain chest (secondary to pericardiocentesis, pericardial drain) Vital Signs- BP-pre-110/70, post-143/112, HR 136 post session Mental Status: alert, oriented to person, place, and time Vision: intact Skin: chest tube site Musculoskeletal: ROM: limited by body habitus Strength: intact throughout Sensation: intact Bed Mobility: Supine to Sit: HOB full elevated, marquez with incr effort, incr pain Sit to Supine: marquez with HOB elevated, incr pain, tendency to valsalva Transfers: Sit to Stand: CTG Stand to Sit: CTG, Gait: Distance: 100 feet Device used: none Level of assist: CTG Gait mechanics: slow pace, cues for pacing and PLB Stairs: NA Balance: Sitting Static: good Sitting Dynamic: good Standing Static: good Standing Dynamic / Gait: good Education: patient has been educated on Bed mobility, Transfers, Breathing exercises, Safety , Gait, Activity pacing/Energy conservation, Role of therapy, Balance and Discharge planning and needs reinforcement. understanding. Patient status, treatment, and mobility recommendations discussed with nursing. Assessment: Rolo Rashaun Aguilar was seen today for physical therapy evaluation. Upon eval, pt in significant pain limiting overall mobility. Requires cues/education for PLB and pacing.Significant difficulty taking a deep breath.Spoke to RN re: spirometry. RN to place one in patient's room and pt can attempt as tolerated.Anticipate that pt will progress well once pain is better controlled.Anticipate DC to home when medically ready.. The pt would benefit from skilled therapy services while in the hospital to maximize functional abilities. Discharge Recommendations: Based on the current findings, Anticipated Discharge Disposition (PT): home with assist when medically ready for hospital discharge. Consult Recommendations: No other consults recommended at this time. Equipment needs: No equipment necessary Goals: To be achieved by 01/19/21: 1. Pt. to demonstrate knowledge of safety limitations and precautions and will appropriately request assistance for functional activities and to mobilize. 2. Pt. to demonstrate understanding of appropriate pacing,PLB and spirometry exercises. 3. Pt. to perform bed mobility independently. 4. Pt. to perform all transfers independently using no assistive device. 5. Pt. to ambulate 150+ feet independently using a no assistive device. 6. Pt. to ambulate up/down 12 step/stairs using one rail independently. 7. Family or caregiver to demonstrate understanding of therapeutic interventions to support the care of the patient. 8. Pt will tolerate progression towards upright with stable vital signs. Plan: Therapy Frequency (PT): 2-4 times/wk for therapy including balance training, bed mobility training, gait training, patient/family education, stair training, strengthening and transfer training.Patient/family understand and agree with plan as stated above. 2017 PT Evaluation Code Rationale: ?? Diagnosis & Pertinent Co-Morbidities, personal factors, and present illness affecting Plan of Care: (see above); Additional personal factors or co- morbidities that impact plan: ?? Total # of Factors: 0 1-2 3+ x ?? Examination of body system impairments, functional limitations and behaviors, and/or participation restrictions. Addressing 1-2 elements Addressing 3 + elements x Addressing 4 + elements ?? Clinical presentation: See assessment above. Stable/Uncomplicated Evolving/Fluctuating Symptoms Unstable/Unpredictable X SOB,pain ?? Clinical decision making of moderate complexity based on pt's functional performance as outlinedin this evaluation. Time IN / OUT: 920-1000 Total Minutes, Physical Therapy: 40 Macey Alarcon, PT Pager: [phone] Physical Therapy Inpatient Rehabilitation Department * Mark Anthony Barrera OT - 01/12/2021 10:30 AM EST OT Contact note 01/12/21 1030 OT Time and Intention Document Type contact Total Minutes, Occupational Therapy 0 Comment, Session Not Performed Checked on pt this morning. RN reported he was in too much pain. Returned later and he was receiving an echo. Unable to return later. Will continue to follow. Mark Anthony Barrera OTR/Andie Pager: [phone] * Jose Anand MD - 01/12/2021 7:00 AM EST Inpatient Cardiology Progress Note ID: Rolo Aguilar is a 50 y.o. male with morbid obesity and PMH of atrial flutter (on apixaban) and SVT (refractory to cardioversion + ablation, recently being maintained on 400mg amio + metop 50mg QD), CAD (s/p PCI with EMMY x 1 in LCX in 2017), GERD, anxiety, bipolar disorder. Found to have pericardial effusion s/p pericardiocentesis w/ pigtail in place. 24 hr events: - Persistent inspiratory chest pain overnight. EKG stable, diffuse ST elevation consistent with pericardial effusion - Dilaudid and lidocaine patches added for pain control - 400mL out pericardial pigtail drain past 24hrs Vital Signs: Temp: [36.4 ??C (97.5 ??F)-37 ??C (98.6 ??F)] Heart Rate: [91-121] Resp: [15-26] BP: (91-159)/(57-108) SpO2: [92 %-99 %] Heart Rate from SpO2: [72 bpm-117 bpm] Exam: General: Morbidly obese well-appearing middle-aged male in NAD Head: NCAT Eyes: EOMI,no scleral icterus Oropharynx: MMM, no erythema, exudates, or lesions, good dentition Neck: Supple, trachea midline, no thyromegaly; right prior IJ site has clean dressing without bleeding or purulence Lungs: CTAB Heart: RRR w/o M/R/G Abdomen: Soft, NT/ND, NABS Extremities: 1+ edema bilaterally; right femoral groin site: no bleeding, dry, non-purulent, no surrounding erythmema Neuro: Cranial Nerves 2-12 grossly intact; no gross focal deficits Skin: No gross rashes, lesions, or ecchymoses Intake/Output Summary (Last 24 hours) at 01/12/2021 0700 Last data filed at 01/12/2021 0500 Gross per 24 hour Intake 3020 ml Output 1325 ml Net 1695 ml cumulative I/O's since admission: Patient Vitals for the past 168 hrs: Weight 01/12/21 0641 (!) 198 kg (436 lb 8.2 oz) 01/11/21 0630 (!) 196.6 kg (433 lb 6.8 oz) 01/10/21 1006 (!) 184.7 kg (407 lb 3.2 oz) Labs Recent Labs 01/11/21 0740 01/10/21 2155 WBC 13.2* 16.1* HGB 13.7 13.5* HCT 42.2 41.1 PLATELET 224 253 Recent Labs 01/12/21 0355 01/11/21 0740 01/10/21 2155 NA 135 134* 138 K 5.0 4.9 4.3 CL 104 104 107 CO2 22 19* 18* BUN 18 15 15 CREATININE 0.91 0.86 0.89 Recent Labs 01/11/21 0640 01/10/21 2155 AST 47* 46* ALT 40 40 ALKPHOS 47 51 BILITOT 0.4 0.5 BILIDIR 0.1 0.2 Recent Labs 01/12/21 0355 01/11/21 0740 01/10/21 2155 CALCIUM 8.2* 8.1* 8.1* MAGNESIUM -- -- 0.63* Recent Labs 01/10/21 2155 INR 1.4 PT 15.6* PTT 66* Recent Labs 01/11/21 0640 TROPONINT 1.06* Recent Labs 01/11/21 0745 POCGLU 136 Imaging/Studies: TTE 01/11/21: SUMMARY: ?? 1. There is a smal to moderate circumferential pericardial effusion most prominent around the right ventricle. There is no RV collapse, but there is echocardiographic evidence for hemodynamic significance (ventricular septal shift with respiration, variation in mitral E velocities, diastolic collapse of the right atrium, restriction to RV diastolic expansion, and IVC plethora). Clinical correlation required. 2. Compared to the limited TTE performed 01/10/2021, the pericardial effusion is better visualized but likely unchanged in size. MEDS: Infusions: ??? sodium chloride 0.9% 100 mL/hr (01/12/21 0400) ??? PHENYLephrine Stopped (01/11/21 0653) Scheduled: ??? lidocaine 1 patch Transdermal Q24H And ??? lidocaine 1 patch Transdermal Q24H ??? lamoTRIgine 100 mg Oral Daily ??? aspirin EC 650 mg Oral TID ??? colchicine 0.6 mg Oral Daily ??? heparin (porcine) 5,000 Units Subcutaneous Q8H VANESA ??? atorvastatin 20 mg Oral QPM ??? pantoprazole EC 40 mg Oral BID ??? sodium chloride 0.9 % (flush) 5 mL Intravenous BID ??? sodium chloride 0.9 % (flush) 5 mL Intravenous BID ??? AMIOdarone 400 mg Oral Daily PRN: HYDROmorphone, acetaminophen, midazolam (PF), atropine, clonazePAM, sodium chloride 0.9 % (flush), lidocaine, sodium chloride 0.9 % (flush), nitroGLYcerin ASSESSMENT: oRlo Aguilar is a 50 y.o. male s/p ablation w/ post-procedure hypotension w/ pericardial effusion and tamponade physiology. S/p pericardiocentesis w/ pigtail in place draining to gravity. Treating with high dose aspirin, colchicine, and mIVFs. Pain management with acetaminophen, PRN dilaudid,and lidocaine patches. PLAN: #Pericardial effusion s/p atrial flutter ablation #Atrial Flutter s/p ablation #Hx of HTN #PMH of CAD s/p PCI - TTE today to reassess effusion - Pericardial Pigtail in place now to continuous wall suction - continuous NS 100 ml/hr x 10 hours - colchicine (pericarditis) - high dose ASA (pericarditis) - EKG: NSR - hold home lisinopril 2.5 mg - hold home metoprolol XL 50 mg - continue amiodarone 400 mg qd - continue atorvastatin 20 mg qhs - Holding home apixaban for now - maintain K >4, Mag >1 - tele ?? #Bipolar Disorder #Anxiety - continue home clonazepam 1 mg bid prn - continue home lamotrigine 100 mg qd ?? #GERD - continue pantoprazole 40 mg bid ?? #R/o Infection - BCX??x 2 ?? Other: - DVT prophylaxis:??holding apixaban for now - GI prophylaxis:??N/A - Diet:??Cardiac Diet - Code Status: Full - Dispo:??[facility] Chavo Dominguez MD PGY2, Cardiology S2 01/12/2021 CARDIOLOGY ATTENDING NOTE Patient: Rolo gAuilar Date of Service: 01/12/2021 Date of Admission: 01/10/2021 Length of Stay Hospital Day 0 days Please see the above note by Dr. Dominguez for details. I have interviewed and examined the patient independently and I concur with the assessment and plan. The case was discussed on cardiology roundsand we reviewed the plan of care with the team and patient. In addition, I certify that I am a [facility] credentialed attending provider with admitting privileges and that the patient meets or has met medical necessity to require an inpatient IPI level of care meeting a minimum of two midnights Mr. Aguilar is a 50 year old man who presented with AF/AT ablation with post- procedure hypotension requiring pressors. TTE with moderate circumferential pericardial effusion with hemodynamic significance. He underwent pericardiocentesis on 01/11 with 300cc of bloody fluid removed. Drain left in plac e, drained ~400cc. Will keep drain in place, repeat TTE today. Pain control with high dose ASA, colchicine, PRN opioids. Rest per Dr. Dominguez. Jose Anand MD, MPH, VI, [facility] Pager [phone] Cardiovascular Division ChairFashion Merchandisertape [place] [address] * Nayan William RN - 01/12/2021 6:15 AM EST Loss of arterial line overnight. MD notified. Line d/c'd by FLAVIA Gregory, mikki held by this creative services writer. Non-invasive BP remains WNL. Pain and SOB continue to persist. MD at bedside several times. EKG done for HARMEET on tele. Per MD, EKG consistent with pericarditis. Changes made to PRN pain meds. One-time dose Oxycodone given with poor result. Lidocaine patch added this am. performed bedside U/S toassess for recurrent effusion. Scant drainage from pericardial drain. * Sherrie Barraza OT - 01/11/2021 5:05 PM EST Occupational Therapy: 01/11/21 1703 OT Time and Intention Document Type contact Total Minutes, Occupational Therapy 0 Comment, Session Not Performed OT orders received/chart reviewed. Patient deferred by RN today, as he was currently receiving an ECHO and undergoing a cardiac work up. OT will follow up tomorrow, as appropriate * Fadi Escobar MD - 01/11/2021 1:20 PM EST Cardiac Electrophysiology Mr. Mcbride was seen and evaluated this AM shortly after I learned that he had been found to havea [id number] size pericardial effusion on echocardiogram during the early AM hours. had some pericarditis this AM,unlike yesterday evening when I saw him in the PACU after the procedure. I reviewed his overnight echocardiogram with Dr. Barillas, as well as the follow up echocardiogram obtained after I saw him. There was not full diastolic relaxation of the right ventricle compared to his baseline imaging, but there was no right ventricular collapse. Apically the effusion was <1 cm,and was unchanged from earlier this AM; posteriolaterally the effusion was somewhat larger, but also probably unchanged. Despite that, he has very mild dyspnea and his blood pressure 110 systolic is not back up to baseline. His pulse is in the 90s/minute (sinus rhythm), and he is producing urine. I contacted Dr. Amato and Dr. Meade to discuss this with them - he is a large man in whom pericardiocentesis and drain placement would be expected to be more challenging. Consideration of observation contingencies versus proceeding with an attempt at pericardiocentesis led me to request that he undergo pericardiocentesis and drain placement this afternoon. I subsequently discussed this with and Mrs. Jean Baptiste (I had suggested this as a possibility to both earlier this AM when we spoke), and answered their questions pending his meeting Dr. Amato. I anticipate this happening early this afternoon. * Chavo Dominguez MD - 01/11/2021 7:37 AM EST Inpatient Cardiology Progress Note I have seen and examined this patient and discussed with the grad intern, resident, fellow. I have personally reviewed the echocardiogram (initial and repeat) and discussed with Fadi Escobar from EP. While no clear evidence of tamponade, we will tap and leave drain in for fluid. Hold anticoagulation fornow. Judy Tijerina MD, [place], [facility] Cardiology Attending ID: Rolo Aguilar is a 50 y.o. male with morbid obesity and PMH of atrial flutter (on apixaban) and SVT (refractory to cardioversion + ablation, recently being maintained on 400mg amio + metop 50mg QD), CAD (s/p PCI with EMMY x 1 in LCX in 2017), GERD, anxiety, bipolar disorder who is transferred from PACU after elective atrial flutter ablation with sustained hypotension post-procedure requiring pressor support. Most recent echo 2017: EF 60% Cardiac Medications: ?? Amiodarone 400 mg qd Apixaban 5 mg bid Atorvastatin 20 mg qhs Lisinopril 2.5 qd Metoprolol succinate 50 mg qd 24 hr events: - Bedside echo w/ moderate pericardial effusion w/ some RA collapse and mild septal flattening - BP lowest around 81/44 before pressors initiated - S/p 2.5L IVF boluses, now on 100mL/hr - Phenylephrine gtt now weaned off, HDS ROS: Mild dizziness, haziness. Otherwise doing well, no other symptoms. He denies an chest pain, shortness of breath, palpitations, weakness, fatigue, headache, nausea, abdominal pain, fevers, chills, myalgias, arthralgias, back pain, numbness, tingling, or any other acute sx. Vital Signs: Temp: [35.9 ??C (96.6 ??F)-36.8 ??C (98.2 ??F)] Heart Rate: [66-106] Resp: [11-29] BP: (75-148)/(54-80) SpO2: [92 %-100 %] Heart Rate from SpO2: [71 bpm-106 bpm] Exam: General: Morbidly obese well-appearing middle-aged male in NAD Head: NCAT Eyes: EOMI,no scleral icterus Oropharynx: MMM, no erythema, exudates, or lesions, good dentition Neck: Supple, trachea midline, no thyromegaly; right prior IJ site has clean dressing without bleeding or purulence Lungs: CTAB Heart: RRR w/o M/R/G Abdomen: Soft, NT/ND, NABS Extremities: 1+ edema bilaterally; right femoral groin site: no bleeding, dry, non-purulent, no surrounding erythmema Neuro: Cranial Nerves 2-12 grossly intact; no gross focal deficits Skin: No gross rashes, lesions, or ecchymoses Intake/Output Summary (Last 24 hours) at 01/11/2021 0737 Last data filed at 01/11/2021 0600 Gross per 24 hour Intake 5286.83 ml Output 606 ml Net 4680.83 ml cumulative I/O's since admission: Patient Vitals for the past 168 hrs: Weight 01/11/21 0630 (!) 196.6 kg (433 lb 6.8 oz) 01/10/21 1006 (!) 184.7 kg (407 lb 3.2 oz) Labs Recent Labs 01/10/21 2155 WBC 16.1* HGB 13.5* HCT 41.1 PLATELET 253 Recent Labs 01/10/21 2155 NA 138 K 4.3 CL 107 CO2 18* BUN 15 CREATININE 0.89 Recent Labs 01/10/21 2155 AST 46* ALT 40 ALKPHOS 51 BILITOT 0.5 BILIDIR 0.2 Recent Labs 01/10/21 2155 CALCIUM 8.1* MAGNESIUM 0.63* Recent Labs 01/10/21 2155 INR 1.4 PT 15.6* PTT 66* Recent Labs 01/11/21 0640 TROPONINT 1.06* No results for input(s): POCGLU in the last 168 hours. Imaging/Studies: TTE: moderate pericardial effusion MEDS: Infusions: ??? sodium chloride 0.9% ??? PHENYLephrine Stopped (01/11/21 0653) Scheduled: ??? magnesium sulfate 2 g Intravenous Once ??? atorvastatin 20 mg Oral QPM ??? lamoTRIgine 200 mg Oral Daily ??? pantoprazole EC 40 mg Oral BID ??? sodium chloride 0.9 % (flush) 5 mL Intravenous BID ??? sodium chloride 0.9 % (flush) 5 mL Intravenous BID ??? AMIOdarone 400 mg Oral Daily PRN: acetaminophen, clonazePAM, sodium chloride 0.9 % (flush), lidocaine, sodium chloride 0.9 % (flush), nitroGLYcerin ASSESSMENT: Rolo Aguilar is a 50 y.o. male s/p ablation w/ post-procedure hypotension w/ pericardial effusion and tamponade physiology. No signs of alternans on EKG. Holding apixaban and home ASA until stable from bleeding perspective. Holding home HTN meds. Blood cultures pending. Will get repeat TTE today. Hypotension after the procedure was most likely cardiogenic due to the large effusion in his pericardial space. PLAN: #Post-Procedural Hypotension #Atrial Flutter s/p ablation #Hx of HTN #PMH of CAD s/p PCI - s/p 2.6L IVF during and post procedure - continuous NS 100 ml/hr x 10 hours - weaned off phenylephrine - repeat TTE?? - colchicine for pericardial effusion - EKG - hold home lisinopril 2.5 mg - hold home metoprolol XL 50 mg - continue amiodarone 400 mg qd - continue atorvastatin 20 mg qhs - hold home ASA 81 mg qd - hold home apixaban until bleed ruled out - maintain K >4, Mag >1 - tele ?? #Bipolar Disorder #Anxiety - continue home clonazepam 1 mg bid prn - continue home lamotrigine 100 mg qd ?? #GERD - continue pantoprazole 40 mg bid ?? #R/o Infection - BCX??x 2 - UA - no shortness of breath, productive cough, fever; no indication for CXR ?? Other: - DVT prophylaxis:??restart apixaban when bleed r/o - GI prophylaxis:??N/A - Diet:??Cardiac Diet - Code Status: Full - Dispo:??[facility] Chavo Dominguez MD PGY2, Cardiology S2 01/11/2021 * Hanna Claros RN - 01/11/2021 3:41 AM EST OUTCOME EVALUATION NOTE: OUTCOME SUMMARY: Transferred to CSCU. Pt is AO4. No complaints of chest pain. Complains of some SOB. Sukhi. currently running at 10mcg/min, BP WDL, will continue to titrate per protocol. S.R. on tele. Right groin dressing c/d/i, no signs of hematoma. Echo completed. Pt NPO per MD/RN discussion. Will continue to monitor. PLAN MOVING FORWARD: continue d/c planning as appropriate. INDIVIDUALIZED FALL PREVENTION INTERVENTIONS: Patient-specific fall risk factors per assessment: [current deficits]: generalized weakness, unfamiliar environment, tubes/wires. Assistance [level of assistance required for transfers and ambulation]: bedrest Supervision [direct monitoring required during toileting and ADLs]: Hourly rounding, room near RN station, call weeks in reach. Surveillance [continuous indirect monitoring]: Tele and o2 monitoring Patient-specific fall prevention interventions for sensory deficits provided, if applicable: Lighting adjusted for tasks for safety, non skid socks, bed lowered and in locked position. CPG GOAL OUTCOME EVALUATION: ongoing * Citlali Flores RN - 01/10/2021 7:13 PM EST 1912: Rolo Aguilar arrives from EP on bed to PACU 11. Placed patient on monitor with parameters adjusted to be appropriate for patient with alarms on and active. Low BP noted. Anesthesia at bedside administering IV BP medications with good result. 1999: Dr. Escobar at bedside assessing and updating patient. Notified MD of BP since arrival to PACU, UOP, mental status. MD agrees that patient could use some fluid and to hold IV Lasix at this time. 2044: Patient shows no signs of bleeding from procedure/sheath sites or along back/flank. BP low requiring a Phenylephrine drip to be started. BP responding to vasopressor. Will continue to recover patient in PACU at this time. Patient unable to be transferred to SSU with vasopressor administration. 2114: Spoke with EP fellow regarding vasopressor and need to upgrade bed status for patient. Plans for possible bedside echo. 2145: Cardiology fellows at bedside assessing patient, discussing plan of care, and placing orders.Plans for upgraded room to ICU in available unit. 2330: Resident at bedside discussing plan with patient and placing orders. Plans for stepdown room. 01/11/2021: 0220: [facility]bal [facility] [place]ami. Plans for transport per protocol on monitor withnurse assist. documented in this encounter H&P Notes * Judy Tijerina MD - 01/10/2021 9:24 PM EST Cardiology Admission History and Physical Patient Name: Rolo Aguilar Service: S1 Team Responsible Attending: Rayo Bianchi MD PCP: Bin Bowman MD PCP phone #: [phone] ID/Chief Complaint: Rolo Aguilar is a 50 y.o. man old pleasant morbidly obese gentleman with PMH of atrial flutter(on apixaban) and SVT, CAD(s/p PCI with EMMY x 1 in LCX in 2016), GERD, anxiety,bipolar disorder who is transferred from PACU after elective atrial flutter ablation with sustainedhypotension post- procedure requiring pressor support. History of Present Illness: Mr. Aguilar has an extensive history of refractory palpitations and repeat episodes of atrial flutter and SVT with rates reaching 160, refractory to direct cardioversion onset since April 272019 for which he has been frequently hospitalized. He underwent a flutter ablation on 07/10/2020, however had continued episodes atrial flutter with rapid ventricular rates requiring escalating doses ofrate control until he was finally hospitalized on 01/02 and was loaded with amiodarone on infusion and discharged on amiodarone taper, now maintained on amiodarone 400 mg qday along with 50 mg of metoprolol XL. He presented today for repeat elective atrial flutter ablation and reports he was otherwise at his baseline health status prior to his procedure. Pt underwent atrial fibrillation ablation this this morning with the initiation of anesthesia at 1110. 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 He was awakened from anesthesia, extubated and taken to PACU recovery hemodynamically stable afebrile, with BP 110/67, HR 97, RR 19, and SpO2 97% satting on room air, upon arrival to PACU at 1913 patient was noted to have low BP down to 81/44 and was initiated on 30 of phenylephrine gtt. Patient was given additional 1 L of LR. BP improved with sukhi with MAPs sustaining above 70s. Cardiology was consulted for transfer to CSCU. Tele shows normal sinus rhythm. Other than some mild soreness in his chest when he takes a deep breath, some mild dizziness, and haziness, patient states he has no acute complaints and is otherwise doing well. He denies an chest pain, shortness of breath, palpitations, weakness, fatigue, headache, nausea, abdominal pain, fevers, chills, myalgias, arthralgias, back pain, numbness, tingling, or anyother acute sx. Prior Cardiac Testing: Cardiac Cath(07/13/17) Conclusions: * One vessel coronary artery disease (LCX) * Elevated left ventricular end diastolic pressure * Successful stent insertion of the proximal OM1 lesion * Recommend continuing clopidogrel 75 mg PO daily for 12 months (see DAPT Recommendations above for more information.) TTE(07/15/2017) ?? 1. The left ventricular chamber size is normal. There is normal global left ventricular systolic function. The quantitative left ventricular ejection fraction by biplane Malik's method is 60%. There are left ventricular segmental wall motion abnormalities [facility], as coded in the diagram below. 2. Right ventricular chamber size, wall thickness, and systolic function are within normal limits. 3. See remainder of report for additional findings. 4. No prior echo available for comparison. Ziopatch(08/02/20): There was a <1.0% burden of isolated [...] of all of these runs was 121/minute. ?? There was a <1.0% burden of isolated ectopic ventricular beats detected, and a ventricular couplet and a triplet were detected as well. There were no ventricular runs detected. The patient wrote in 3 timed diary entries for symptoms (variably noting dyspnea, chest pain or pressure, dizziness, and lightheadedness), and there were 5 patient-triggered events; these corresponded to sinus rhythm 64-92/minute. This monitor study was remarkable for sinus rhythm. Occasional nonsustained supraventricular tachycardia runs (without any atrial flutter/fibrillation) and a low overall burden of ectopy were detected. ?? Cardiac Medications: Amiodarone 400 mg qd Apixaban 5 mg bid Atorvastatin 20 mg qhs Lisinopril 2.5 qd Metoprolol succinate 50 mg qd Review of Systems: Pt denies fevers, chills, sweats, weakness, fatigue, weight changes, vision changes, hearing changes, changes in taste, congestion, rhinorrhea, epistaxis, sore throat, cough, sob, barker, wheezing, chest pain, palpitations, orthopnea, edema, pnd, abdominal pain, nausea, vomiting, constipation, diarrhea, bloody/melanotic bowel movements, dysuria, hematuria, frequency, myalgias, arthralgias, neck pain, back pain, headache, numbness, tingling, focal weakness, parasthesias, syncope, tremors, confusion, anxiety, rashes, lesions, trauma, sick contacts, travel, insect bites, or any other acute sx at this time. Problem List/Past Medical History Patient Active Problem List Diagnosis ??? SVT (supraventricular tachycardia) Added automatically from request for surgery [id number] ??? Bipolar disorder ??? PAF (paroxysmal atrial fibrillation) Added automatically from request for surgery [id number] ??? Flutter-fibrillation ??? H/O cardiac radiofrequency ablation ??? Coronary disease ?? 2017: STEMI. PCI of OM1. EF 60%. Many ER visits to [facility] after this. ??? Heart palpitations ??? Obesity ??? Essential hypertension Meds: Current Outpatient Medications Medication Instructions ??? acetaminophen (TYLENOL) 650 mg, Oral, EVERY 6 HOURS PRN ??? AMIOdarone (PACERONE) 400 mg Tablet Take one tablet by mouth three times daily x 5 days, then one tablet by mouth daily x 7 days, then 0.5 mg tablet daily thereafter ??? apixaban (ELIQUIS) 5 mg, Oral, 2 TIMES DAILY ??? aspirin EC 81 mg, Oral, DAILY ??? atorvastatin (LIPITOR) 20 mg, Oral, EVERY EVENING ??? clindamycin (CLINDAGEL) 1 % Gel APPLY TOPICALLY TO AFFECTED AREA TWICE DAILY ??? clonazePAM (KLONOPIN) 1 mg, Oral, 2 TIMES DAILY PRN ??? lamoTRIgine (LAMICTAL) 200 mg, Oral, DAILY ??? lisinopriL (PRINIVIL;ZESTRIL) 2.5 mg, Oral, DAILY ??? metoprolol succinate XL (TOPROL-XL) 50 mg, Oral, DAILY ??? nitroGLYcerin (NITROSTAT) 0.4 mg Tablet, Sublingual DISSOLVE 1 UNDER TONGUE NEEDED ??? pantoprazole EC (PROTONIX) 40 mg, Oral, 2 TIMES DAILY Allergies: Allergies Allergen Reactions ??? Adenosine Palpitations tachycardia ??? Gabapentin ??? Wellbutrin [Bupropion Hcl] ??? Zoloft [Sertraline] Family History: Family History Problem Relation Age [...] status: Former Smoker Types: Cigarettes Quit date: 2014 Years since quittin.1 ??? Smokeless tobacco: Former [...] of Exercise per Session: Not on file Vitals: Last value Range last 24 hrs Temperature Temp: 36.2 ??C (97.2 ??F) Temp: [35.9 ??C (96.6 ??F)-36.6 ??C (97.9 ??F)] Heart Rate Heart Rate: 94 Heart Rate: [66-101] Blood Pressure BP: 107/67 BP: (75-148)/(54-76) Respiratory Rate Resp: 19 Resp: [11-26] SpO2 SpO2: 99 % SpO2: [92 %-100 %] Examination: General: Morbidly obese well-appearing middle-aged male in NAD Head: NCAT Eyes: EOMI,no scleral icterus Oropharynx: MMM, no erythema, exudates, or lesions, good dentition Neck: Supple, trachea midline, no thyromegaly; right prior IJ site has clean dressing without bleeding or purulence Lungs: CTAB Heart: RRR w/o M/R/G/C Abdomen: Soft, NT/ND, NABS Extremities: 1+ edema bilaterally; right femoral groin site; no ttp, no bleeding, dry, non-purulent, no surrounding erythmema Neuro: Cranial Nerves 2-12 grossly intact; no gross focal deficits Skin: No gross rashes, lesions, or ecchymoses Lines: PIV x 2 bilateral [place] Art Line - Right Laboratory: CBC: Recent Labs 01/10/21215412/17/2031007/10/20 0738 WBC 16.1* 8.8 9.9* HGB 13.5* 14.4 15.6 PLATELET 253 172 208 Chemistry: Recent Labs 01/10/21215412/19/20 0502 12/18/20 0403 12/17/2031007/10/20 0738 NA 138 138 137 141 140 K 4.3 4.2 3.9 3.6 4.7 CL 107 104 105 106 100 CO2 18* 27 25 25 32* BUN 15 -- -- 9* 13 CREATININE 0.89 -- -- 0.92 1.05 GLUCOSE 171 -- -- 110 -- Recent Labs 01/10/21215412/17/2031007/10/20 0738 CALCIUM 8.1* 9.1 10.0 MAGNESIUM 0.63* 0.84 -- PHOS -- 3.0 -- LFT's: Recent Labs 01/10/215 12/17/20 0311 BILITOT 0.5 0.5 BILIDIR 0.2 0.2 ALBUMIN 3.3 3.7 ALKPHOS 51 66 ALT 40 29 AST 46* 18 Coags: Recent Labs 01/10/212154 PT 15.6* INR 1.4 PTT 66* Endocrine: Recent Labs 12/17/20 0311 TSH 2.75 Microbiology: None Diagnostic Studies: EKG- NSR CXR pending ASSESSMENT: 50 y/o gentleman s/p ablation with post-post procedure hypotension . Possibly 2/2 to sedation As patient was sedated with propofol and is morbidly obese, it is possible that given its lipophilicity, it may be retained in his system longer and he is requiring more time to recover as evidence by his mild haziness and dizziness. Echo ordered to r/o any signs of pericardial effusion with tamponade physiology or new stress cardiomyopathy. No electrical alternans on EKG. Will recheck CBC to confirm stable hgb but no overt bleeding from cath site or prior right IJ site. Will hold apixaban and home aspirin until hemoglobin is confirmed to be stable. Will attain blood cultures, UA, and blood cultures to r/o although our suspicion for acute infection is low. Holding home antihypertensives, but willcontinue home metoprolol. . In the meantime, will continue to support with IV phenylephrine, titrating down as tolerated, and additional IV fluids as shown below: PLAN: Admit to Cardiology, M1S1 Team Pager #[phone] #Post-Procedural Hypotension #Atrial Flutter s/p ablation #Hx of HTN #PMH of CAD s/p PCI - s/p 2.6L IVF during and post procedure - continuous NS 100 ml/hr x 10 hours - pressor support to maintain SBP > 65 - phenylephrine currently at 50: downtitrate as tolerated - TTE - EKG - repeat CBC to r/o bleeding - hold home lisinopril 2.5 mg - hold home metoprolol XL 50 mg - continue amiodarone 400 mg qd - continue atorvastatin 20 mg qhs - hold home ASA 81 mg qd - hold home apixaban until bleed ruled out - maintain K >4, Mag >1 - tele #Bipolar Disorder #Anxiety - continue home clonazepam 1 mg bid prn - continue home lamotrigine 200 mg qd #GERD - continue pantoprazole 40 mg bid #R/o Infection - BCX x 2 - UA - no shortness of breath, productive cough, fever; no indication for CXR Other: - DVT prophylaxis: restart apixaban when bleed r/o - GI prophylaxis: N/A - Diet: Cardiac Diet - Code Status: Full - Dispo: [facility] Ernie Thrasher MD Internal Medicine PGY-2 I have seen and examined this patient and discussed with the grad intern, resident, fellow. Judy Tijerina MD, [place], [facility] Cardiology Attending * Fadi Escobar MD - 01/10/2021 10:24 AM EST Interval History and Physical Exam: Planned Procedure [facility] [place] HISTORY OF PRESENT ILLNESS: Rolo Aguilar is a 50 y.o. man old gentleman referred by??Jose Culver MD, for several recent manifestly symptomatic cardiac dysrhythmias. Mr. Aguilar had presented on April 27 to the Emergency Department in [facility] with an episode of supraventricular tachycardia (SVT) at a rate of 164/minute. He was given adenosine, and evidently reverted to a faster poorly tolerated wide complex tachycardia. In response to this, direct current cardioversion was accomplished (300 Joule applications x 3, first 2 followed??by with sinus rhythm reemergence of SVT in <30 seconds, and 3rd shock preceded by intravenous metoprolol 5 mg). ?? Approximately 1-2 weeks later, he again developed rapid palpitations, and his subsequent Emergency Room evaluation was said to reveal atrial flutter with associated rapid ventricular rates. He was given three doses of intravenous metoprolol 5 mg, and soon thereafter he eventually reverted back to sinus rhythm. Later that evening he developed atrial fibrillation (AF) with ventricular rates up to almost 160/minute, for which he was given additional metoprolol and some intravenous diltiazem, bringing his heart rate down to ~90- 100/minute; approximately 75 minutes later, he reverted to sinus rhythm, but with a 5 second post-conversion pause. Shortly thereafter, he again reverted to AF for ~1 minute before sinus rhythm again reemerged. He was admitted to the hospital for subsequent monitoring,but he then remained in sinus rhythm. On July 10, he underwent a diagnostic electrophysiology study and associated mapping and ablation procedure; following are the findings and acute outcomes: In patient cardiology service was called from pt's Autumn regarding Rolo's recent/frequent hospitalizations for his atrial arrhythmias PM of 01/02 was most recent episode of AF/AFL. He was Given IV amiodarone infusion which converted his arrhythmia after 4 hrs. He was then discharged on repeat PO amiodarone load (400 mg BID) Reviewed ECG tracings & clinical data w/ Dr. Escobar who agreed that we will attempt to move case to a sooner date than 01/16 LAST Oral Anticoagulation dose: apixaban yesterday am denies recent bleeds, trauma, interval fevers chills or neurological changes. ROS: Denies recent fevers, chills. No syncope No orthopnea, PHYSICAL EXAM: Vital Signs: BP 148/67 Pulse 66 Temp 36.5 ??C (97.7 ??F) (Temporal) Resp 18 Ht 167.6 cm (5'6) Wt (!) 184.7 kg (407 lb 3.2 oz) SpO2 97% BMI 65.72 kg/m?? A&O x 3, calm conversant, no acute distress JVD non disteneded Lung: clear to auscultation bilaterally, normal respiratory effort Heart: regular S1 S 2no murmurs, rubs or gallops Chest: no open wound or new rash, Femoral vein Site/Groin: no new rash, no thrills. Ext: no edema PROBLEM LIST: Patient Active Problem List Diagnosis Code ??? Coronary disease I25.10 ??? Heart palpitations R00.2 ??? Obesity E66.9 ??? Essential hypertension I10 ??? H/O cardiac radiofrequency ablation Z98.890 ??? Flutter-fibrillation I48.91, I48.92 ??? SVT (supraventricular tachycardia) I47.1 ??? PAF (paroxysmal atrial fibrillation) I48.0 ??? Bipolar disorder F31.9 ALLERGIES: Allergies Allergen Reactions ??? Adenosine Palpitations tachycardia ??? Gabapentin ??? Wellbutrin [Bupropion Hcl] ??? Zoloft [Sertraline] Current Outpatient Medications: ??? AMIOdarone (PACERONE) 400 mg Tablet, Take one tablet by mouth three times daily x 5 days, then one tablet by mouth daily x 7 days, then 0.5 mg tablet daily thereafter, Disp: 60 tablet, Rfl: 0 ??? apixaban (Eliquis) 5 mg Tablet, Take 1 tablet by mouth 2 times daily., Disp: 60 tablet, Rfl: 3 ??? atorvastatin (Lipitor) 20 mg Tablet, Take 1 tablet by mouth every evening., Disp: 30 tablet, Rfl: 3 ??? metoprolol succinate XL (Toprol-XL) 50 mg Tablet Sustained Release 24 hr, Take 50 mg by mouth daily., Disp: , Rfl: ??? lisinopriL (Prinivil;Zestril) 2.5 mg Tablet, Take 1 tablet by mouth daily., Disp: 90 tablet, Rfl: 3 ??? pantoprazole (PROTONIX) 40 mg Tablet, Delayed Release (E.C.), Take 1 tablet by mouth 2 times daily., Disp: 180 tablet, Rfl: 3 ??? acetaminophen (TYLENOL) 325 mg Tablet, Take 2 tablets by mouth every 6 hours as needed for Pain., Disp: 30 tablet, Rfl: 1 ??? aspirin 81 mg Tablet, Delayed Release (E.C.), Take 1 tablet by mouth daily., Disp: 30 tablet, Rfl: 3 ??? lamoTRIgine (LAMICTAL) 200 mg Tablet, Take 1 tablet by mouth daily. (Patient taking differently: Take 100 mg by mouth daily.), Disp: 30 tablet, Rfl: 3 ??? clonazePAM (KLONOPIN) 1 mg Tablet, Take 1 mg by mouth 2 times daily as needed for Anxiety., Disp: , Rfl: ??? clindamycin (CLINDAGEL) 1 % Gel, APPLY TOPICALLY TO AFFECTED AREA TWICE DAILY, Disp: 30 g, Rfl:1 ??? nitroGLYcerin (NITROSTAT) 0.4 mg Tablet, Sublingual, DISSOLVE 1 UNDER TONGUE NEEDED, Disp: ,Rfl: 4 PAST SURGICAL HISTORY: Past Surgical History: Procedure Laterality Date ??? PRO LAP, CHOLECYSTECTOMY/GRAPH N/A 07/21/2018 LAPAROSCOPIC CHOLECYSTECTOMY WITH CHOLANGIOGRAM (WRVU 11.47) performed by Colt Hewitt MD [facility] MAIN OR ??? PRO UNLISTED LAPAROSCOPIC PX LVR N/A 07/21/2018 LAPAROSCOPIC LIVER BIOPSY (WRVU 16.52) performed by Colt Hewitt MD at [facility] MAIN OR ??? PRO UPPER GI ENDOSCOPY, BIOPSY N/A 12/29/2017 UPPER GASTROINTESTINAL ENDOSCOPY,WITH BIOPSY SINGLE OR MULTIPLE (WRVU 2.49) performed by Yusuf Tucker MD at [facility] ENDOSCOPY ??? PRO UPPER GI ENDOSCOPY, DIAGNOSTIC N/A 12/29/2017 EGD, UPPER GI ENDOSCOPY performed by Yusuf Tucker MD at [facility] ENDOSCOPY ??? TONSILLECTOMY Accessory Clinical Findings: Laboratory Data: Lab Results Component Value Date WBC 8.8 2020 HGB 14.4 2020 HCT 43.6 2020 MCV 83.7 2020 Lab Results Component Value Date NA 138 12/19/2020 K 4.2 12/19/2020 CL 104 12/19/2020 CO2 27 12/19/2020 BUN 9 (L) 2020 CREATININE 0.92 2020 GLUCOSE 110 2020 GLUCFASTING 113 (H) 07/10/2020 CALCIUM 9.1 2020 ESTGFR 96 2020 Lab Results Component Value Date TSH 2.75 2020 Lab Results Component Value Date INR 1.5 2020 INR 1.2 07/10/2020 INR 1.2 (H) 07/13/2017 ASSESSMENT AND PLAN: Planned EPS and likely AT (possible PWI for AF) ablation GA CARTO Hold Eliquis for 24 hrs (PM before & AM of procedure) George Brar MD 01/10/21 10:24 AM Cardiac Electrophysiology Attending This patient was seen and evaluated, and reviewed with Dr. Brar. I agree with principal findingsdocumnted. Goals for this expedited procedure were discussed, including the matter of possible leftatrial ablation targeting atrial tachycardai/fibrillation (including discussion differentiating dysrhythmia 'triggers' and the prioritization of targeting dysrhythmia substrate (now including documented fibrillation). Risks of harm, limitations, and intended benefits also were considered; all of his questions, and those of his , were answered. The impression and plan incorporate my input. documented in this encounter Miscellaneous Notes * Plan of Care - Tess Santiago RN - 01/11/2021 5:56 PM EST OUTCOME EVALUATION NOTE: OUTCOME SUMMARY: Patient experiencing chest pain and shortness of breath this morning upon inspiration, team notified. Patient had echo showing pericardial effusion; pericardial drain placed this afternoon. Pt returned in extreme pain, sweating w rigors. IV toradol, PO tylenol, PO oxy, IV morphine and IV dilaudid admin at this time. Pt continues to express shortness of breath and chest pain w inspiration. Arterial line in to monitor BP; team wanting to keep a-line in. Sinus rhythm on tele. Vitals stable on 2 L at this time. Lobato in place. PLAN MOVING FORWARD: Pericardial drain in place to water suction. Continuing to try to manage pain. Monitoring BP. INDIVIDUALIZED FALL PREVENTION INTERVENTIONS: Nonskid socks, call weeks in reach, bed near nurses station Patient-specific fall risk factors per assessment: [current deficits]: tele wires, IV lines, unfamiliar environment Assistance [level of assistance required for transfers and ambulation]: bedrest Supervision [direct monitoring required during toileting and ADLs]: eyes on Surveillance [continuous indirect monitoring]: telemetry, pulse oximetry, a-line Patient-specific fall prevention interventions for sensory deficits provided, if applicable: n/a CPG GOAL OUTCOME EVALUATION: ongoing * Brief Op Note - Erich Amato MD - 01/11/2021 2:45 PM EST Preliminary Cardiac Catheterization Procedure Note: Patient Name: Rolo Aguilar : [id number] MR#: [id number] Case Date: 01/11/2021 [employer] Accounts Manager: Surgeon(s) and Role: * Erich Amato MD - Primary * Rachana Silver DO - Fellow Preoperative diagnosis: Pericardial drain placement Postoperative diagnosis: * Pre-tamponade * Procedure(s) performed: Pericardiocentesis Pericardial drain placement Access: Apical chest wall, just below the left breast; six [place] citizen pigtail. A time-out was conducted prior to the start of the procedure to verify the correct patient and procedure, procedure location, and all relevant critical information. Preliminary findings: Ultrasound access was used to identify the best approach for draining a small circumferential pericardial effusion with pre-tamponade physiology. The subxyphoid approach showed the depth was excessive for reaching with a needle, hence the reagan-apical approach was used, selecting the shortest distance to reach to the pericardium. The skin was prepped and draped in a normal fashion and local anesthesia was applied to the skin. A standard needle was then used to track to the pericardial space. Once entered, a wire was introduced into the pericardial space and confirmed with ultrasound and flouroscopy. Next, the tract was dilated and the pigatil was placed into the pericardial space. Bloody fluid was removed, totalling ~300cc. Echo showed near resolution of the fluid in the pericardial space.Blood pressure was noted to increase by 80 mm Hg. The catheter was sutured in place and sterile dresing were applied. The drain was connected to LCWS and a pleuravac was connected. Successful placement of pericardial drain. The patient tolerated the procedures smoothly and was transferred from the cardiac catheterization lab to the next level of care in stable condition. No evident early complications. Full report to follow. Erich Amato MD * Initial Assessments - Chanell Fatima RN - 01/11/2021 12:02 PM EST Office of Care Management Initial Assessment Chanell Fatima RN reviewed record and discussed patient with Care Team. Source of Information: Team, bedside nurse, medical record, and Source: (chart review) Reason for Hospitalization: Stated Reason for Admission: Ablation for afib/tachycardia Last COVID test date and time: Rapid SARS-CoV-2 RNA Date Value Ref Range Status 01/10/2021 Not Detected Not Detected Final Past medical History: Past Medical History: Diagnosis Date ??? A-fib ??? Anxiety ??? CAD (coronary artery disease) ??? Flutter-fibrillation ??? GERD (gastroesophageal reflux disease) ??? HLD (hyperlipidemia) ??? Hypertension ??? Seizure Hospitalizations Within the Past 30 Days: Hospitalizations in past 30 days: 1 Anticipated Length Of Stay (If known): 3 days Current Decision-Making Capacity: Decision Maker: Self Advance Care Planning: Attempt Cardiopulmonary Resuscitation - Inpatient <no information> -Advanced Directive: (not on file) If AD's have not been completed spouse would be surrogate decision maker per [place] surrogate decision making law. (Only good for 90 days) Any [place] [facility] [place] abide [place]. The hierarchy [...] (i) The agent with financial power of county attorney or a conservator appointed in accordance with RSA 464-A. (j) The guardian of the patient???s estate. Current Functional Ability: Current Functional Status: Independent Functional Status Prior to Admission: Prior Functional Status: Independent Home Environment: People in Home: spouse. Living Arrangements: house. Current DME: None DME Needed at DC: None Home Address Listed as: [address] [place] [id number] Social & Family Supports: Extended Emergency Contact Information Primary Emergency Contact: Autumn Aguilar Address: [address] [place], [place] [id number] [place] [address] Mobile Relation: Spouse Secondary Emergency Contact: Whitney Piedra Address: [address] [place] [address] [facility] Relation: Sibling Community Resources being provided currently: Outpatient/Agency/Support Group Needs: (none) Behavioral Health History: Current or Prior Mental Health History: None reported or noted at this time Substance Use/Abuse: chart review Social History Tobacco Use Smoking Status Former Smoker ??? Types: Cigarettes ??? Quit date: 2013 ??? Years since quittin.1 Social History Substance and Sexual Activity Alcohol Use No Social History Substance and Sexual Activity Drug Use Yes ??? Types: Marijuana Comment: medical MJ Other Pertinent/Service Specific Information: No Health/Prescription Coverage: Primary Insurance: [place] Payor[place] / Plan: [place] PRIMARY CARE PLUS / Product Type: *No Product type* / Secondary Insurance: N/A Prescription Coverage: yes Preferred Pharmacy: [facility]/pharmacy #[id number] - [place], [place] - [address] [facility] [address] [facility] [place], [place] [address] [facility] [id number] [facility] [address] [place], [place] [address] [facility] [address] [facility] [address] [id number] [address] [facility] [address] [facility] [place] [address] [facility] [address] [address] Primary Care Provider: Bin Bowman MD [phone] Patient/Caregiver Goals of Treatment: MA home Potential Needs for Transition of Care: Patient/Family Anticipated Services at Transition: none Agency Referrals: none Transportation: Transportation Anticipated: family or friend will provide(spouse) Anticipated Barriers to Discharge/Special Considerations: None noted or presented to CM at this time. Assessment: Patient is admitted to cardiology service for post procedure hypotension requiring pressor support. Plan: Patient with no apparent RNCM/SW needs [...] assist with transition of care planning. Chanell D Fatima, RN, MSN, motivational speaker Office of Care Management Pager: [phone] Work * Brief Op Note - Fadi Escobar MD - 01/10/2021 7:27 PM EST Brief Operative Note Patient Name: Rolo Aguilar : [id number] MR#: [id number] Case Date: 01/10/2021 Surgeon: Surgeon(s) and Role: Panel 1: * Fadi Escobar MD - Primary * George Brar MD - Fellow Panel 2: * Jose Anand MD - Primary Preoperative diagnosis: SVT (supraventricular tachycardia) [I47.1], PAF (paroxysmal atrial fibrillation) [I48.0] Postoperative diagnosis: Same Procedure: Electrical isolation of the pulmonary veins,mitral annular flutter ablation Anesthesia: General Findings: Atrial fibrillation,mitral annular flutter Complications: None apparent Intake: Intraprocedure Crystalloid Total Intake Lactated Ringers 1600.00 mL Total Intake 1600 mL Transfusion No data found in the last 1 encounters. Output: Estimated Blood Loss: * No values recorded between 01/10/2021 12:18 PM and 01/10/2021 6:28 PM * Urine Output:: (no urine output recorded) Other Output: (no other output recorded) Drains: Lobato Specimens removed during surgery: None Disposition: awakened from anesthesia, extubated and taken to the recovery room in a stable condition, having suffered no apparent untoward event. Condition: doing well without problems Attestation: Case Date: 01/10/2021 I was present and I participated during the entire procedure (does not need to include opening and closing). (Please see the Surgical Encounter Summary for any Implant and Specimen details pertinent to this patient.) Infection Bundle used? No * Op Note - Fadi Escobar MD - 01/10/2021 12:18 PM EST Electrical Isolation of Pulmonary Vein Antra and Posterior Left Atrial Wall (Atrial Fibrillation Radiofrequency Ablation) and Ablation of Atrial Tachycardia/Flutter: Electrophysiology Study with Dobutamine Infusion, Transseptal Left Atrial Assessment x 2, Intracardiac Echo Imaging, 3-Dimensional Intracardiac Mapping (CARTO), Direct Current Cardioversion Operators: George Brar MD, and Fadi Escobar MD Indication: Symptomatic paroxysmal atrial tachycardia/fibrillation and possible supraventricular tachycardia Pre-procedure: Anticoagulation : Apixaban discontinued 1 day ago Antiarrhythmic : Amiodarone held _ days ago Weight (kilograms) : 187.4 kg Method: The procedural attending personally reviewed the nature of the procedure, procedural goals,and associated risks and limitations of the planned intervention with the patient. The patient was reminded of anticoagulation plans post-procedure. Other post-procedure issues also were reviewed, such as pericarditis, post-procedure atrial fibrillation related to inflammation in pericarditis, bleeding and thrombus issues, excess fluid, etc. All of his questions were answered. After confirmation of his informed consent, the patient was brought to the biplane Electrophysiology Laboratory in the fasting state. A time out was accomplished. Continuous electrocardiographic monitoring was instituted. General anesthesia and airway management were accomplished by the Anesthesiology Service. Both femoral regions and the right base of the neck were prepared and draped in the usual sterile manner. Local anesthesia was achieved with a 1:1 mixture of 2% lidocaine and 0.5% bupivacaine administered subcutaneously. Using ultrasound venography for guidance, the following hemostatic sheaths (all with sidearms and flushed) were inserted utilizing a modified Seldinger technique and electrode catheters were positioned under fluoroscopic guidance as follows: Sheath Catheter Electrodes Insertion Site Target 8 Fr 6 Fr 10 Right internal jugular Coronary sinus (CS) 8.5 Fr 7 Fr 20 Right femoral vein Left atrium 11.5 Fr 7.5 Fr 4 Right femoral vein Left atrium (8 Fr ICE temporarily via 11.5 Fr sheath) ... esophageal lead w/ 2 cm bipole (with thermistor and Esophastar) (to assess left atrial posterior wall activation timing). ... central venous pressure (monitored via the right internal jugular sheath side arm). ... blood pressure (monitored via radial arterial line) There were a number of issues that arose, resulting in the delay of getting the electrophysiologic evaluation underway. Coronary sinus (CS) access required more effort than typically needed, and the subsequent assessment to assure proper position of the CS catheter also was necessary - this included intracardiac echocardiographic imaging, which also confirmed the proper catheter position (the fluoroscopic view revealed an axially rotated heart such that the distal tip of the coronary sinus decapolar catheter was situated more posteriorly than usual). There also were issues with initial functionality of the UBmatrixisamiando system, the EP-4 stimulator, and the lateral GE fluoroscopic camera. Reconfigurations, engaging with technical support, and rebooting the various systems ultimately achieved proper functionality, thereby finally allowing for the procedure to be executed. Due to the late start, an abbreviated and more focused diagnostic protocol was employed for initial electrophysiologic testing. Programmed electrical stimulation, imaging, CARTO 3-dimensional mapping, and radiofrequency ablation were performed as detailed below and digitally archived. Transeptal Access: A heparin infusion was initiated at a rate of 2500 units/hour. The short 8 Algerian sheaths in the right femoral vein were replaced with long sheaths as follows: A Daig 8.5 Fr SL1 transeptal sheath carefully was advanced over a 0.035 J- tipped guidewire so thatits tip was in the superior vena cava. The guidewire was exchanged for a Brockenbrough needle (BRK tip), which was inserted into the sheath dilator. The tip of the sheath dilator was pulled inferiorly and positioned at the low middle aspect of the foramen ovalis ('leftward tenting at the fossa' wasconfirmed), and then the Brockenbrough needle was advanced into the left atrium guided by the intracardiac echocardiography (ICE) imaging and fluoroscopic views, and over this was advanced the dilator and sheath, taking care to remain posterior and away from the left atrial appendage (EFREM); almost s imultaneously, a 7500 unit bolus of heparin was administered. With the needle and dilator withdrawn, the left atrial pressure was assessed via the sheath side arm pressure column to be ~10 cm blood; the right atrial pressure at that time was 17 mm Hg. A blood sample sample also was obtained, and the oxygen saturation was measured as 96%. An eicosapolar PentaRay catheter was inserted via this SL1 sheath and cautiously advanced into the left atrium (LA) for mapping. Arterial blood gas measurements and iStat chemistries were obtained from the sample drawn at the time of initial transseptal access to the left atrium; these results were within an acceptable rangepH 7.4, pCO2 39.6 mm Hg, pO2 149 mm Hg, HCO3 26 mmol/L. Next, a [address] Brian 'Agilis' short curl steerable transeptal sheath was advanced across the fossa via a separate lower and more anterior septal access site utilizing similar technique as was used with the SL1 sheath (without ICE imaging). The left atrial pressure was assessed via the sheath side arm pressure column, and was ~10 cm blood; the right atrial pressure at that time again was 17 mm Hg. Another blood sample was obtained, with the oxygen saturation was measured at 97.3%). Another 2500 unit intravenous bolus of heparin was administered immediately after confirming successful left atrial access. Activated Clotting Times (ACTs) were assessed regularly after entry into the left atrium, and adjustments to the heparin infusion rate and heparin bolus doses were administered to maintain the ACT inthe targeted range (300-400 seconds). A slow continuous heparinized saline flush (10,000 units/liter) was maintained through the sidearms of both transseptal sheaths. Left Atrial Appendage Assessment: The intracardiac echocardiography (ICE) catheter was removed from the 9 Fr sheath, and then deployed through the Agilis sheath for left atrial access. ICE was employed for a careful assessment of theleft atrial appendage (imaging at a frequency of 11.5 MHz), during which no thrombus was identified. The ICE catheter then was removed from the Agilis sheath, and redeployed via the 9 Fr femoral sheath to the right atrium for subsequent use in monitoring the patient's status. Electrophysiologic Assessment: 1) The patient was in sinus rhythm at baseline. Measurements assessed during sinus rhythm at a cycle length (CL) of 1110 milliseconds (ms) were as follows: MA: 180 ms (P wave duration 140 ms) QRS: 100 ms QT: 480 ms 2) Atrial overdrive pacing was accomplished from the proximal-most bipole in the coronary sinus (CS), and the atrioventricular (AV) Wenckebach block CL was observed at 410 ms. There was no pre-excitation or conduction aberrancy identified. The okhepchn-el-HJA interval < QRS-QRS interval just prior to the observed AV Wenckebach block CL, and no echo beats were elicited. 3) Pacing was accomplished from the left ventricle, and ventriculo-atrial (VA) conduction was absent at a paced CL of 600 ms. 4) Rapid atrial pacing decremented down to a CL of 220 ms elicited atrial tachycardia that initially was irregular with varying atrial ectivation, but which settled into an atrial tachycardia of CL 240 ms (+/- 10 ms) with medial to lateral CS activation. Within ~10 seconds, however, it transformed to a similar CL with lateral to medial activation, before otherwise reverting to overt fibrillatory conduction; it then spontaneously terminated. 5) Atrial extrastimulus testing from the most proximal CS bipole was accomplished using an atrial drive train of CL 600 ms (20 mA @ 2 ms); the local atrial effective refractory period (ERP) was notedat an S2 coupling interval of 250 ms, and the AV node ERP determination was not directly observed (significant atrial tissue conduction delay limited florencia testing). There was a notable jump in the AV interval when the S2 extrastimulus was reduced from 340 ms to 320 ms (~100 ms increment in the [id number]-[id number]-NYJ interval), indicative of the presence of dual AV node physiology. Left Atrial Anatomy and Mapping: A CARTO oLyfe ThermoCool SF 8 Fr ablation catheter with bidirectional deflectable 3.5 mm tip (D and F curves) was positioned within the left atrium for mapping and ablation via the Agilis sheath. A left atrial volume was constructed via fast anatomical mapping (using the eicosapolar PentaRay cath eter). A left atrial voltage map simultaneously was acquired, and this revealed no obvious areas ofscar or atrial regions with low amplitude fractionated electrogram signals. Radiofrequency Ablation: Electrical Isolation of the Posterior Left Atrium - I The esophageal lead was observed in position adjacent to the posterior left atrium. Extra precautions were observed when ablating inferoposteriorly (unidirectional catheter tip motion with expedited movement along the posterior trajectory and the adjacent esophageal luminal temperature continually was assessed). The peak esophageal temperature noted during left atrial posterior wall ablation was 37.4 centigrade degrees (original baseline temperature of 35.8 centigrade degrees). Cautious radiofrequency ablation was accomplished across the inferoposterior (IP) segment, extending from the inferior left pulmonary vein antrum (LPVA) margin towards the inferoposterior margin of the right pulmonary vein antrum (RPVA), using expedited unidirectional catheter motion and 20 montes of delivered power; conduction block along that segment was achieved. This segment was 5.1 centimeters (cm) in length. Next, starting at the medial extent of the IP segment at the inferior margin of the RPVA, the ablation trajectory was extended towards the septal aspect of the RPVA, up the anteroseptal margin to thesuperior margin delivering up to 30-35 montes. After that, the SF ablation catheter was placed at the inferior aspect of the LPVA. The rove catheter was used to kathy the tissue edge the lateral left atrial wall and left atrial appendage from the anterior margin of the left pulmonary vein antrum. After this was accomplished, radiofrequency ablation commenced at the inferior margin of the left pulmonary vein antrum (LPVA), and this next ablation trajectory extended up along the previously marked anterior margin edge using increasedpower delivery to as much as 40 montes. This segment was 5.9 centimeters in length. Finally, ablation was accomplished along the superior segment between the superior ends of the septal trajectory and the leftward trajectory; the superior segment was ablated using 30-40 montes. This segment was 4.4 centimeters in length. This failed to achieve acute electrical isolation (aEI) of the posterior left atrium (ESTEPHANIE), although marked conduction delay into the ESTEPHANIE was evident. The circumferential ablation trajectory (CAT) was reassessed for any remaining sites of electrical continuity (EC) via a comnination of local electrogram analyisis, differential pacing, and regional activation mapping. [place] [address] Joules during minutes:seconds of actual ablation time, aEI of the ESTEPHANIE at lastwas achieved. Additional cautious ablation was accomplished at garcia locations along the CAT to consolidate this acute result. A detailed description of mapping details, specific ablation locations, and ablation energy and time utilized per segment was not effectively documented on tis occasion due to the late procediral start and due to limitations (and/or limitations of familiarity) with the recently installedClMytonomy mapping system. Mitral Annular Flutter Induction, Mapping, Ablation Rapid atrial CS pacing to a CL of 200 ms again elicied atrial tachycardia at a CL of ~225 ms (+/- 5ms) with lateral to medial CS activation. Limited entrainment mapping results indicated this to be mitral annular flutter (transient fibrillatory conduction also eventually emerged). With the patient otherwise yet stable and with a post-ablation waiting perod underway subsequent toaEI of the ESTEPHANIE, this mitral annular flutter was targeted via ablation along a posterolateral trajectory with delivery of 40 montes (and limited cautious delivery of 50 montes). Complete conduction block across this isthmus was not achieved, and so the rove catheter was withdrawn to the right atrium with the Agilis sheath, and the rove catheter tip was redirected toward the distal CS. Unfortunately,the mid and distal CS vessel appeared to be too narrow to accommodate both the decapolar catheter and the rove catheter together. The rove catheter could not be manipulated to advance distally enough, even with partial withdrawal of the CS catheter, to allow for epicardial-side isthmus ablation viathis approach. Substantal catheter manipulation was necessary to engage the CS with the rove catheter via the Agilis sheath. Electrical Isolation of the Posterior Left Atrium - II In the meantime, conduction into the ESTEPHANIE region recovered. Mapping revealed the possibility of epicardial connections into the ESTEPHANIE region, particularly adjacent to the the LPVA; aEI of the LPVA was achieved after cautious ablation of portions of the posterior margin of the LPVA. Ablation of a portion of the posterior margin of the RPVA and a portion of the right lobo also was accomplished before completing aEI of the RPVA. There remained EC into the posterior left atrial wall (PLAW), but lateconduction block across the IP segment was confirmed - the PLAW region was activated epicardially, or via the roof segment (recall that aEI of the entire ESTEPHANIE earlier had been achieved, but that did not persist, necessitating segmentation 5to achieve aEI of both pulmonary vein antra). Right Atrial Assessment: The catheters and sheaths were withdrawn to the right atrium, and the inferior cavotricuspid isthmus (iCTI), which had been ablated last June, was reassessd. No iCTI dependent atrial flutter was elicited, and split electrograms consistent with conduction block were noted at the iCTI location. That said, proximally (adjacent to the inferior vena cava), the split appeared to be narrower and with some low amplitude fractionated electrograms; limited ablation to tht location was accomplished. Otherwise, conduction block along that isthmus appeared to be intact. Completion of the Procedure: The heparin infusion was discontinued as the catheters and sheaths were withdrawn and placed in neutral position. ICE revealed a trivial effusion at the conclusion of the procedure. Total Fluoroscopy Time: 25.2 minutes, low intensity setting, biplane Dose Area Product: 7833 cGy.cm2 Cumulated Dose: 681 mGy Total Radiofrequency Energy Delivered: [id number] Joules Total Actual Ablation Time: 50:31 m:s At the conclusion of the procedure, sheaths were removed, and hemostasis was achieved via manual compression (following administration of ? mg of protamine). The total estimated blood loss was <50cc (including discards in conjunction with assessing ACT). No intravenous contrast was used during this procedure. The total fluid administered during the procedure was __ cc, and the urine output was ___ cc. The patient tolerated the procedure well, with no apparent acute complications. He was transferred to the recovery area in stable condition with a Lobato catheter yet in place. Results: 0) No left atrial thrombus identified. 1) Successful acute electrical isolation of the pulmonary vein antra, and conduction block was achieved across the inferoposterior aspect of the left atrial wall between the electrically isolated pulmonary vein antra. 2) Mitral annular flutter was elicited and mapped, [...] resulting from this ablation effort eventually resolves. 3) No inferior cavotricuspid isthmus dependent atrial flutter was elicieed, and conduction block across the inferior cavotricuspid isthmus was evident (see above description in body of report regarding portion of isthmus (possibly proximal o the Eustachian ridge). 4) Preserved atrioventricular conduction with dual atrioventricular node physiology. 5) No finding of an accessory pathway. 6) The P wave duration post-cardioversion and pre-ablation was prolonged at 140 ms during sinus rhythm; the post-ablation sinus rhythm P wave duration was 120 [address] ____ Dr. Escobar was present, and participated in all garcia aspects of this procedure; he reviewed archived signals and produced this report. Addendum: During the recovery period with subsequent observation by the next morning, the patient'sblood pressure had not returned to pre-procedure levels, and also did not respond sufficiently to fluid administration; a repeat echocardiogram the following morning revealed that he had developed a s [id number] effusion with restricted filling (though not overt right atrial collapse). A pericardiocentesis subsequently was performed with a 300 cc of bloody fluid removed (please see separte report by Erich Amato MD), and the blood pressure reverted to baseline values; a 6 Algerian pericardial drain was placed, but there was no significant fluid reaccumulation. documented in this encounter Plan of Treatment Upcoming Encounters Date Type Department Care Team (Latest Contact Info) Description 06/07/2024 2:00 PM EDT Office [place] [phone] Joan Castro MD [facility] [place] [address] 06/11/2024 1:03 PM EDT Hospital Encounter [place] [phone] Rachel Carrasco MD [facility] [place] [address] 06/11/2024 1:03 PM EDT - 06/11/2024 1:58 PM EDT Surgery [place] [phone] Rachel Carrasco MD [facility] [place] [address] CYSTO, REMOVAL OF STENT, FOREIGN BODY OR CALCULUS, SIMPLE (WRVU 2.81) 06/23/2024 10:00 AM EDT Office Visit Cardiology at [address] [phone] Nilsa Goldstein MD [facility] [place] [address] Pending Results Name Type Priority Associated Diagnoses Date /Time EKG 12 Lead ECG Routine PAF (paroxysmal atrial fibrillation) 01/13/2021 8:06 AM EST Scheduled Procedures Name Priority Associated Diagnoses Date/Ti me CYSTO, REMOVAL OF STENT, FOR EIGN BODY OR CALCULUS, SIMPLE (WRVU 2.81) NEPHROLITHIASIS 06/11/2024 1:03 PM EDT documented as of this encounter Procedures Procedure Name Priority Date/Time Associated Diagnosis Comments ECHO COMPLETE Routine 01/13/2021 11:03 AM EST Pericardial effusion EKG 12-LEAD Routine 01/13/2021 8:06 AM EST Pericardial effusion EKG 12-LEAD Routine 01/13/2021 8:06 AM EST PAF (paroxysmal atrial fibrillation) HC VENIPUNCTURE STAT 01/13/2021 5:30 AM EST HEMOGRAM STAT 01/13/2021 5:30 AM EST DIFFERENTIAL, AUTOMATED STAT 01/14/20 5:30 AM EST HC CBC,PLT & AUTO DIFF STAT 5:30 AM EST HC MAGNESIUM, SERUM Routine 01/13/2021 5 :30 AM EST ECHO LMTD W/O CONTRAST W LMTD SPEC DOPP Routine 01/12/2021 11:08 AM EST Pericardial effusion SCAN, PERIPHERAL BLOOD STAT 8:19 AM EST HEMOGRAM STAT 01/12/2021 8:19 AM EST DIFFERENTIAL, AUTOMATED STAT 01/13/20 8:19 AM EST HC CBC,PLT & AUTO DIFF STAT 8:19 AM EST HC VENIPUNCTURE STAT 01/12/2021 3:55 AM EST MAGNESIUM STAT 01/12/2021 3:55 AM EST EKG 12-LEAD STAT 01/12/2021 12:07 AM EST Pericardial effusion CARDIAC CATHETERIZATION Routine 01/12/20 2:33 PM EST HC L-LACTATE Routine 01/11/2021 1:10 PM EST ECHO COMPLETE W CONTRAST Routine 021 10:21 AM EST SVT (supraventricular tachycardia) XR CHEST ONE VIEW STAT 01/11/2021 10: 18 AM EST POCT GLUCOSE Routine 01/11/2021 7:45 AM EST BMP W/FASTING GLUCOSE STAT 01/11/2021 7:40 AM EST HEMOGRAM STAT 01/11/2021 7:40 AM EST DIFFERENTIAL, AUTOMATED STAT 01/12/20 7:40 AM EST HC L-LACTATE STAT 01/11/2021 7:40 AM EST HC CBC,PLT & AUTO DIFF STAT 7:40 AM EST HC TROPONIN T STAT 01/11/2021 6:40 AM EST HEPATIC FUNCTION PANEL STAT 6:40 AM EST EKG 12-LEAD STAT 01/11/2021 6:29 AM EST Pericardial effusion HC VENIPUNCTURE STAT 01/11/2021 4:51 AM EST HC BLOOD CULTURE- STAT 01/11/2021 4:3 0 AM EST XR CHEST ONE VIEW Routine 01/11/2021 2:1 3 AM EST LACTATE, WHOLE BLOOD, [place] [place] [place] STAT 01/11/2021 2:05 AM EST EKG 12-LEAD Routine 01/11/2021 1:59 AM EST SVT (supraventricular tachycardia) HEMOGRAM Routine 01/10/2021 9:55 PM EST DIFFERENTIAL, AUTOMATED Routine 01/11/20 9:55 PM EST HC PARTIAL THROMBOPLASTIN TIME Routine 01/10/2021 9:55 PM EST HC PROTHROMBIN TIME Routine 01/10/2021 9 :55 PM EST HC CBC,PLT & AUTO DIFF Routine 9:55 PM EST HC MAGNESIUM, SERUM Routine 01/10/2021 9 :55 PM EST HEPATIC FUNCTION PANEL Routine 9:55 PM EST BASIC METABOLIC PANEL (NON-FASTING) Routine 01/10/2021 9:55 PM EST ELECTROPHYSIOLOGY PROCEDURE Routine 01/10/2021 6:28 PM EST SVT (supraventricular tachycardia) POINT OF CARE BLOOD GAS HISTORICAL Routine 01/10/2021 4:20 PM EST RAPID COVID-19 PCR ([facility]) Routine 01/10/2021 12:32 PM EST documented in this encounter Results * ECHO COMPLETE (01/13/2021 11:03 AM EST) Anatomical Region Laterality Modality Other 01/13/2021 Narrative 01/13/2021 11:38 AM EST Procedure: ?Transthoracic Echocardiogram Patient: ?ISAACIMER Rodney ?(Age): 1970(50y) Med Rec#: ? [id number] ?Sex: ?M ? Site Loc: ? [facility] ?Ht / Wt: ??168(cm)/198(kg) Pt. Loc: ?Adult Floor ? BSA: ?2.79 Study Date: ?? 01/13/2021 ?Pt. Type: Inpatient Tape: ? Referring: Jose Anand ??([id number]) Reading: Joss De Anda ([id number]) Jewelry Enameler: Shahriar Juan RDCS, FASE Diagnosis: *Pericardial effusion [...] Vmax ?0.94 ? m/sec ? MV deceleration cvwi537.49 ? msec ? MV A-wave Vmax ?0.66 [...] ? Mid-Inferior ?Normal ? Mid-Inferoseptal ?Normal ? [place]-Septal ? Normal ? [place]-Anterior ? Normal ? [place]-Lateral ?Normal ? [place]-Inferior ? Normal ? [place]-Tip ?Normal ? This report has been electronically signed by: Joss De nAda MD ? 01/13/2021 11:37:34 Images reviewed and interpretation verified [facility] Cardiac Ultrasound Laboratory Procedure Note Joss De Anda MD - 01/13/2021 Procedure: Transthoracic Echocardiogram Patient: ISAAC Rodney (Age): 1970(50y) Med Rec#: [id number] Sex: M [place] [facility] [place] / Wt: 168(cm)/198(kg) Pt. Loc: Adult Floor BSA: 2.79 Study Date: 01/13/2021 Pt. Type: Inpatient Tape: Referring: Jose Anand ([id number]) Reading: Joss De Anda ([id number]) Jewelry Enameler: Shahriar Juan RDCS, [place] Diagnosis: *Pericardial effusion (noninflammatory) (I31.3) *Paroxysmal atrial [...] MV E-wave Vmax 0.94 m/sec MV deceleration ukxd295.49 msec MV A-wave Vmax 0.66 m/sec MV [...] Normal Mid-Posterolateral Normal Mid-Inferior Normal Mid-Inferoseptal Normal [place]-Septal Normal [place]-Anterior Normal [place]-Lateral Normal [place]-Inferior Normal [place]-Tip Normal This report has been electronically signed by: Joss De Anda MD 01/13/2021 11:37:34 Images reviewed and interpretation verified [facility] Ultrasound [facility] Jose Anand MD ECHO ORDERABLES * EKG 12 Lead (01/13/2021 8:06 AM EST) Ventricular rate 141 BPM MUSE SYSTEM Atrial Rate 141 BPM MUSE SYSTEM P-R Interval 146 ms MUSE SYSTEM QRS Duration 94 ms MUSE SYSTEM Q-T Interval 266 ms MUSE SYSTEM QTC Calculated (Bezet) 407 ms MUSE SYSTEM Calculated P [place] 55 degrees MUSE SYSTEM Calculated R [place] 28 degrees MUSE SYSTEM Calculated T [place] 54 degrees MUSE SYSTEM INTERPRETATION Sinus tachycardia Low voltage QRS Possible Inferior infarct (cited on or before 13-JAN-2021) Abnormal ECG When compared with ECG of 12-JAN-2021 00:07, Diffuse ST-elevations have resolved, and there are now diffuse TWI, consistent with resolving pericarditis Confirmed by MD De Anda Daniel ([id number]) on 01/13/2021 12:29:23 PM MUSE SYSTEM 01/13/2021 8:06 AM EST 01/13/2021 12:29 PM EST Jose Anand MD ECG ORDERABLES MUSE SYSTEM * (ABNORMAL) Differential, Automated (01/13/2021 5:30 AM EST) Pathologist [facility] Neutrophils % 71.0 % [facility] Neutr Abs (ANC) 8.18(H) 1.70 - 6.10 x10(3)/ L [facility] Lymphocytes % 16.6 % [facility] Lymphocytes Abs 1.9 0.9 - 3.2 x10(3)/[facility] Monocytes % 10.7 % [facility] Monocyte Abs 1.2(H) 0.3 - 0.9 x10(3)/ L [facility] Eosinophils % 0.5 % [facility] Eosinophils Abs 0.1 0.0 - 0.4 x10(3)/[facility] Basophils % 0.3 % [facility] Basophils Abs 0.0 0.0 - 0.1 x10(3)/[facility] LABORATORY Immature Gran % 0.90 % [facility] Comment: Immature granulocytes(IG's)percentage and absolute count will include metamyelocytes, myelocytes, and promyelocytes. Blood smears from CBCs yielding IG's will be scanned manually for concordance. If this scan disagrees with the automated IG or if promyelocytes are noted, a manual differential will be performed. Amy Gran Abs 0.10(H) 0.00 - 0.04 x10(3)/ L [facility] Blood specimen (specimen) 01/13/2021 5:30 AM EST 01/13/2021 5:44 AM EST Narrative Resulting Agency Comment Spec In Lab Harini Jansen MD HEMATOLOGY ORDERABLE S Performing Organization Address City/State/[facility] Co de Phone Number [facility] [place] [address] * (ABNORMAL) Hemogram (01/13/2021 5:30 AM EST) WBC 11.5(H) 4.0 - 9.5 x10(3)/[facility] LABORATORY RBC 4.11(L) 4.58 - 5.54 x10(6)/[facility] LABORATORY Hemoglobin 11.4(L) 13.7 - 16.5 gm/dL [facility] Hematocrit 35.1(L) 40.5 - 48.5 % [facility] MCV 85.4 82.9 - 93.1 fL [facility] MCH 27.7 27.5 - 32.1 pg [facility] MCHC 32.5 32.0 - 35.7 gm/dL [facility] Platelets 122(L) 145 - 357 x10(3)/[facility] RDWSD 44.7 36.0 - 45.0 fL [facility] RDWCV 14.6(H) 11.4 - 13.8 % [facility] MPV 10.6 7.6 - 12.9 fL [facility] nRBC % Auto 0.0 % [facility] nRBC Abs Auto 0.000 0.000 - 0.000 x10(3)/mcL [facility] Blood specimen (specimen) 01/13/2021 5:30 AM EST 01/13/2021 5:44 AM EST Narrative Resulting Agency Comment Spec In Lab Harini Jansen MD HEMATOLOGY ORDERABLE S Performing Organization Address [facility] de Phone Number [facility] [place] [address] * Magnesium (01/13/2021 5:30 AM EST) Magnesium 0.92 0.69 - 1.07 mmol/L [facility] Blood specimen (specimen) 01/13/2021 5:30 AM EST 01/13/2021 5:45 AM EST Narrative Resulting Agency Comment Spec In Lab Jose Anand MD CHEMISTRY ORDERABLES Performing Organization Address [facility] de Phone Number [facility] [place] [address] * (ABNORMAL) BMP w/fasting Glucose (01/13/2021 5:30 AM EST) Glucose Fasting 92 65 - 99 mg/dL [facility] Comment: ?Fasting* Glucose Interpretive Criteria Normal ?65-99 mg/dL Impaired Fasting glucose ?100-125 mg/dL Consistent with Diabetes Mellitus ? >or= 126 mg/dL *Fasting is defined as no caloric intake for at least 8 hours In the absence of unequivocal hyperglycemia a plasma glucose value of >or= 126 mg/dL should be repeated on a subsequent day. Diagnosis and Classification of Diabetes Mellitus, Position Statement from the [place] [employer]. ??Diabetes Care, Volume 33, Supplement 1, Nov 2009 BUN 14 10 - 20 mg/dL [facility] Creatinine 0.83 0.80 - 1.50 mg/dL [facility] Sodium 135 135 - 145 mmol/L [facility] Potassium 3.8 3.5 - 5.0 mmol/L [facility] Comment: result rechecked- Please note: ??Patients with WBC >100,000 may have falsely elevated Potassium levels. ??For accurate Potassium quantification in these patients send serum separator tube (gold top) for subsequent determinations. ??Contact the Clinical Chemistry Laboratory if there are any questions. Chloride 103 98 - 107 mmol/L [facility] CO2 22 22 - 31 mmol/L [facility] Anion Gap 10 5 - 15 mmol/L [facility] Calcium 8.2(L) 8.5 - 10.5 mg/dL [facility] Estimated GFR 102 >=60 mL/min/1. 73 m?? [facility] Comment: This patient? s estimated glomerular filtration rate (eGFR) is between 102 mL/min/1.73 m2 (patients with less muscle mass per kg body weight) and 118 mL/min/1.73 m2 (patients with more muscle mass [...] in addition to eGFR. Blood specimen (specimen) 01/13/2021 5:30 AM EST 01/13/2021 5:45 AM EST Narrative Resulting Agency Comment Spec In Lab Judy Tijerina MD CHEMISTRY ORDERABLES [facility] [place] [address] * ECHO LMTD W/O CONTRAST W LMTD SPEC DOPP (01/12/2021 11:08 AM EST) EF 70 HEARTLAB SYSTEM Anatomical Region Laterality Modality Other 01/12/2021 Narrative 01/12/2021 11:42 AM EST Procedure: ?Transthoracic Echocardiogram Patient: ?ISAAC Rodney ?(Age): 1970(50y) Med Rec#: ? [id number] ?Sex: ?M ? [place] [facility] [place]Ht / Wt: ??168(cm)/198(kg) Pt. Loc: ?Adult Floor ? BSA: ?2.79 Study Date: ?? 01/12/2021 ?Pt. Type: Inpatient Tape: ? Referring: Thor Wills ([id number]) Referring: Judy Tijerina Reading: Roxana Mesa ([id number]) Jewelry Enameler: Willie Dugan [facility] Jewelry Enameler 2: Suzy Randolph Diagnosis: *Pericardial effusion (noninflammatory) (I31.3) BP: ? 142/92 SUMMARY: 1. A trivial pericardial effusion is visualized. 2. Compared with the prior TTE images of 01/11/2021, the amount of pericadial effusion has decreasd. 3. Global left ventricular wall motion and contractility are probably within normal limits. LVEF 70%. 4. Right ventricular global systolic function is probably normal. Findings ? : Study Quality: ? Technically limited Limited for pericardial effusion. Left Ventricle: ? The left ventricle appears underfilled. ?Global left ventricular wall motion and contractility are probably within normal limits.LVEF 70%. Right Ventricle: ? The right ventricle is probably normal in size. ?Right ventricular global systolic function is probably normal. Pericardium: ? A trivial pericardial effusion is visualized. ?A pericardial fat pad is visualized. Venous: ? The inferior vena cava appears dilated. ?There is a greater than 50% respiratory change in the inferior vena cava dimension. Misc: ? See remainder of report for additional findings. ?Two-dimensional echo and limited spectral Doppler performed. Wall Motion: Segment Name ?Rest ? Base-Anteroseptal ?? Normal ? Base-Anterior ? Normal ? Base-Anterolateral ??Normal ? Base-Posterolateral Normal ? Base-Inferior ? Normal ? Base-Inferoseptal ?? Normal ? Mid-Anteroseptal ?Normal ? Mid-Anterior ?Normal ? Mid-Anterolateral ?? Normal ? Mid-Posterolateral ??Normal ? Mid-Inferior ?Normal ? Mid-Inferoseptal ?Normal ? [place]-Septal ? Normal ? [place]-Anterior ? Normal ? [place]-Lateral ?Normal ? [place]-Inferior ? Normal ? [place]-Tip ?Normal ? This report has been electronically signed by: Roxana Mesa MD ? 01/12/2021 11:42:18 Images reviewed and interpretation verified [facility] Cardiac Ultrasound Laboratory Procedure Note Roxana Mesa MD - 01/12/2021 Procedure: Transthoracic Echocardiogram Patient: ISAAC Rodney (Age): 1970(50y) Med Rec#: [id number] Sex: M [place] [facility] [place] Ht / Wt: 168(cm)/198(kg) Pt. Loc: Adult Floor BSA: 2.79 Study Date: 01/12/2021 Pt. Type: Inpatient Tape: Referring: Thor Wills ([id number]) Referring: Judy Tijerina Reading: Roxana Mesa ([id number]) Jewelry Enameler: Willie Dugan [facility] Jewelry Enameler 2: Suzy Randolph Diagnosis: *Pericardial effusion (noninflammatory) (I31.3) BP: 142/92 SUMMARY: 1. A trivial pericardial effusion is visualized. 2. Compared with the prior TTE images of 01/11/2021, the amount of pericadial effusion has decreasd. 3. Global left ventricular wall motion and contractility are probably within normal limits. LVEF 70%. 4. Right ventricular global systolic function is probably normal. Findings : Study Quality: Technically limited Limited for pericardial effusion. Left Ventricle: The left ventricle appears underfilled. Global left ventricular wall motion and contractility are probably within normal limits.LVEF 70%. Right Ventricle: The right ventricle is probably normal in size. Right ventricular global systolic function is probably normal. Pericardium: A trivial pericardial effusion is visualized. A pericardial fat pad is visualized. Venous: The inferior vena cava appears dilated. There is a greater than 50% respiratory change in the inferior vena cava dimension. Misc: See remainder of report for additional findings. Two-dimensional echo and limited spectral Doppler performed. Wall Motion: Segment Name Rest Base-Anteroseptal Normal Base-Anterior Normal Base-Anterolateral Normal Base-Posterolateral Normal Base-Inferior Normal Base-Inferoseptal Normal Mid-Anteroseptal Normal Mid-Anterior Normal Mid-Anterolateral Normal Mid-Posterolateral Normal Mid-Inferior Normal Mid-Inferoseptal Normal [place]-Septal Normal [place]-Anterior Normal [place]-Lateral Normal [place]-Inferior Normal [place]-Tip Normal This report has been electronically signed by: Roxana Mesa MD 01/12/2021 11:42:18 Images reviewed and interpretation verified [facility]ound [facility] Judy Tijerina MD ECHO ORDERABLES * Scan, Peripheral Blood (01/12/2021 8:19 AM EST) Plat Estimate Normal [facility] RBC Morphology Abnormal [facility] Ovalocytes 1-5 /HPF [facility] Claritza Cells 1-5 /HPF [facility] Vacuolated Neut Present [facility] Blood specimen (specimen) 01/12/2021 8:19 AM EST 01/12/2021 8:36 AM EST Narrative Resulting Agency Comment Spec In Lab Harini Jansen MD HEMATOLOGY ORDERABLE S Performing Organization Address City/State/[facility] Co de Phone Number [facility] [place] [address] * (ABNORMAL) Differential, Automated (01/12/2021 8:19 AM EST) Neutrophils % 71.6 % [facility] Neutr Abs (ANC) 13.82(H) 1.70 - 6.10 x10(3)/mc L [facility] Lymphocytes % 7.9 % [facility] Lymphocytes Abs 1.5 0.9 - 3.2 x10(3)/mc L [facility] Monocytes % 8.4 % [facility] Monocyte Abs 1.6(H) 0.3 - 0.9 x10(3)/[facility] LABORATORY Eosinophils % 11.3 % [facility] Eosinophils Abs 2.2(H) 0.0 - 0.4 x10(3)/[facility] LABORATORY Basophils % 0.2 % [facility] Basophils Abs 0.0 0.0 - 0.1 x10(3)/[facility] LABORATORY Immature Gran % 0.60 % [facility] Comment: Immature granulocytes(IG's)percentage and absolute count will include metamyelocytes, myelocytes, and promyelocytes. Blood smears from CBCs yielding IG's will be scanned manually for concordance. If this scan disagrees with the automated IG or if promyelocytes are noted, a manual differential will be performed. Amy Gran Abs 0.12(H) 0.00 - 0.04 x10(3)/[facility] LABORATORY Blood specimen (specimen) 01/12/2021 8:19 AM EST 01/12/2021 8:36 AM EST Narrative Resulting Agency Comment Spec In Lab Harini Jansen MD HEMATOLOGY ORDERABLE S [facility] [place] [address] * (ABNORMAL) Hemogram (01/12/2021 8:19 AM EST) WBC 19.3(H) 4.0 - 9.5 x10(3)/[facility] LABORATORY RBC 4.48(L) 4.58 - 5.54 x10(6)/[facility] LABORATORY Hemoglobin 12.5(L) 13.7 - 16.5 gm/dL [facility] Hematocrit 38.9(L) 40.5 - 48.5 % [facility] MCV 86.8 82.9 - 93.1 fL [facility] MCH 27.9 27.5 - 32.1 pg [facility] MCHC 32.1 32.0 - 35.7 gm/dL [facility] Platelets 179 145 - 357 x10(3)/[facility] LABORATORY RDWSD 46.8(H) 36.0 - 45.0 [facility] LABORATORY RDWCV 14.8(H) 11.4 - 13.8 % [facility] MPV 9.9 7.6 - 12.9 [facility] LABORATORY nRBC % Auto 0.0 % [facility] nRBC Abs Auto 0.000 0.000 - 0.000 x10(3)/[facility] LABORATORY Blood specimen (specimen) 01/12/2021 8:19 AM EST 01/12/2021 8:36 AM EST Narrative Resulting Agency Comment Spec In Lab Harini Jansen MD HEMATOLOGY ORDERABLE S Performing Organization Address [facility] de Phone Number [facility] [place] [address] * Magnesium (01/12/2021 3:55 AM EST) Pathologist [facility] Magnesium 0.95 0.69 - 1.07 mmol/L [facility] Comment:result rechecked- Blood specimen (specimen) Venous Draw / Unknown 01/12/2021 3:55 AM EST 01/12/2021 4:03 AM EST Narrative Resulting Agency Comment Spec In Lab Harini Jansen MD CHEMISTRY ORDERABLES Performing Organization Address [facility] de Phone Number [facility] [place] [address] * (ABNORMAL) BMP w/fasting Glucose (01/12/2021 3:55 AM EST) Glucose Fasting 126(H) 65 - 99 mg/dL [facility] Comment: ?Fasting* Glucose Interpretive Criteria Normal ?65-99 mg/dL Impaired Fasting glucose ?100-125 mg/dL Consistent with Diabetes Mellitus ? >or= 126 mg/dL *Fasting is defined as no caloric intake for at least 8 hours In the absence of unequivocal hyperglycemia a plasma glucose value of >or= 126 mg/dL should be repeated on a subsequent day. Diagnosis and Classification of Diabetes Mellitus, Position Statement from the [place] [employer]. ??Diabetes Care, Volume 33, Supplement 1, Nov 2009 BUN 18 10 - 20 mg/dL [facility] Creatinine 0.91 0.80 - 1.50 mg/dL [facility] Sodium 135 135 - 145 mmol/L [facility] Potassium 5.0 3.5 - 5.0 mmol/L [facility] Comment: Please note: ??Patients with WBC >100,000 may have falsely elevated Potassium levels. ??For accurate Potassium quantification in these patients send serum separator tube (gold top) for subsequent determinations. ??Contact the Clinical Chemistry Laboratory if there are any questions. Chloride 104 98 - 107 mmol/L [facility] CO2 22 22 - 31 mmol/L [facility] Anion Gap 9 5 - 15 mmol/L [facility] Calcium 8.2(L) 8.5 - 10.5 mg/dL [facility] Estimated GFR 97 >=60 mL/min/1. 73 m?? [facility] Comment: This patient? s estimated glomerular filtration rate (eGFR) is between 97 mL/min/1.73 m2 (patients with less muscle mass per kg body weight) and 113 mL/min/1.73 m2 (patients with more muscle mass per kg body weight) as determined by the CKD-EPI equation. Assessment of eGFR is not appropriate when creatinine concentrations are rapidly changing. For clinical decisions where creatinine clearance will affect therapy, a 24-hour urine creatinine clearance may be advised. Assignment of CKD stage 1 ? 5 for patients with an eGFR near the transition point between stages may be based on clinical assessment of muscle mass and symptoms in addition to eGFR. Blood specimen (specimen) 01/12/2021 3:55 AM EST 01/12/2021 4:00 AM EST Narrative Resulting Agency Comment Spec In Lab Judy Tijerina MD CHEMISTRY ORDERABLES Performing Organization Address [facility] Co de Phone Number [facility] [place] [address] * EKG 12 Lead (01/12/2021 12:07 AM EST) Ventricular rate 96 BPM MUSE SYSTEM Atrial Rate 96 BPM MUSE SYSTEM P-R Interval 154 ms MUSE SYSTEM QRS Duration 94 ms MUSE SYSTEM Q-T Interval 354 ms MUSE SYSTEM QTC Calculated (Bezet) 447 ms MUSE SYSTEM Calculated P [place] 44 degrees MUSE SYSTEM Calculated R [place] 16 degrees MUSE SYSTEM Calculated T [place] 23 degrees MUSE SYSTEM INTERPRETATION Normal sinus rhythm Diffuse ST elevation, consider early repolarization, pericarditis, or injury Abnormal ECG When compared with ECG of 11-JAN-2021 06:29, Acute pericarditis is suspected. I personally reviewed the tracing and edited the fellows interpretation Confirmed by fellow Fernandez Higuera ([id number]) on 01/12/2021 9:35:13 AM Confirmed by Vini Chanel ([id number]) on 01/12/2021 5:29:51 PM MUSE SYSTEM 01/12/2021 12:0 7 AM EST 01/12/2021 5:29 PM EST Judy Tijerina MD ECG ORDERABLES Performing Organization Address [facility] Co de Phone Number MUSE SYSTEM * CARDIAC CATHETERIZATION (01/11/2021 2:33 PM EST) Anatomical Region Laterality Modality Other Narrative 01/11/2021 2:49 PM EST ?[facility] ? Cardiac Catheterization/Intervention Report ? Patient Name: Isaac, Rolo M ? Procedure Date: 01/11/2021 ? A #: [id number] ? Primary Physician: Genesis, Erich T ? Case #: [id number] ? File Name: [id number] ? Catheterization Order Number: [id number] ? [facility] ? Final Report [place], [place] ? Patient Name: ? Rolo M Isaac ? ID#: ?[id number] ? : ?1970 ? Procedure Date: ? January 11, 2021 ?Case #: ? [id number] ? Room: ? 5 ? Case Physician: ? Erich Amato M.D. ?Start: ?14:10 ?Fellow: ? Rachana Adrianne, D.O. ?Admission: ??01/10/2021 ? Procedures: ?* Pericardiocentesis ?* Transthoracic Echo During Cath ? History ?Rolo Aguilar is a 50 year old man. He has hypertension, a family ?history of coronary artery disease and morbid obesity. The patient's ?smoking status is Former. He has hypercholesterolemia managed with lipid ?therapy. The patient is status post a remote myocardial infarction. He ?has a history of atrial fibrillation/atrial flutter. The patient also has ?a history of pericardial effusion. Prior to the initiation of this ?procedure, the patient was designated as ASA Class IV. The [facility] clinical ?frailty scale is 6: Moderately Frail. ? Diagnostic Tests: ?Prior Coronary Angiography: ? LV ejection fraction within 6 months is 63%. ?Electrocardiography: ? EKG was assessed by ECG. EKG was Abnormal. EKG showed other ? abnormality. ?Medications Prior to Procedure: ? Aspirin and Statin. ? Technique: ?A 6Fr sheath was inserted in the sub-xyphoid utilizing the Seldinger ?technique. Radiation: Fluoro time was 0.8 minutes, dose area product was ?4,062 mGYcm2 and air kerma was 62 mGY. See the case log for additional ?details. ? Conclusions: ?* Successful placement of pericardial drain for pre-tamponade physiology. ? Complications/Events: ?The patient had no complications during these procedures. ? Recommendations: ?Based upon the results of this procedure, it was recommended that medical ?therapy be considered. ? Comments: ?Ultrasound access was used to identify the best approach for draining a ?small circumferential pericardial effusion with tamponade physiology. ?The subxyphoid approach showed the depth was excessive for reaching with ?a needle, hence the reagan-apical approach was used, selecting the shortest ?distance to reach to the pericardium. ??The skin was prepped and draped in ?a normal fashion and local anesthesia was applied to the skin. ??A ?standard needle was then used to track to the pericardial space. ??Once ?entered, a wire was introduced into the pericardial space and confirmed ?with ultrasound and flouroscopy. ??Next, the tract was dilated and the ?pigatil was placed into the pericardial space. ??Bloody fluid was removed, ?totalling ~300cc. ??Echo showed near resolution of the fluid in the ?pericardial space. ??Blood pressure was noted to increase by 80 mm Hg. ?The catheter was sutured in place and sterile dresing were applied. ??The ?drain was connected to LCWS and a pleuravac was connected. ?Successful placement of pericardial drain. ?The attending physician was present for the entire procedure. ?Dr. Erich Amato M.D. was present during the moderate sedation ?intraservice time as documented by the sedation nurse. ??Case time = 00:13. ?Dr. Erich Amato M.D. performed the pericardiocentesis and ?transthoracic echo . ? Erich Amato M.D. ? Electronically Signed by: Erich Amato M.D. ? Report Finalized: 01/11/2021 ??14:44 ? Procedure Note Erich Amato MD - 01/11/2021 [facility] Cardiac Catheterization/Intervention Report Patient Name: Rolo Aguilar Procedure Date: 01/11/2021 A #: [id number] Primary Physician: Erich Amato Case #: [id number] File Name: [id number] Catheterization Order Number: [id number] [facility] FinalReport [place], [place] Patient Name: Rolo Aguilar ID#:[id number] :1970 Procedure Date: January 11, 2021 Case #: [id number] Room: 5 Case Physician: Erich Amato M.D. Start: 14:10 Fellow: Rachana Silver D.O. Admission:01/10/2021 Procedures: * Pericardiocentesis * Transthoracic Echo During Cath History Rolo Aguilar is a 50 year old man. He has hypertension, afamily history of coronary artery disease and morbid obesity. The patient's smoking status is Former. He has hypercholesterolemia managed withlipid therapy. The patient is status post a remote myocardial infarction.He has a history of atrial fibrillation/atrial flutter. The patientalso has a history of pericardial effusion. Prior to the initiation of this procedure, the patient was designated as ASA Class IV. The CSHAclinical frailty scale is 6: Moderately Frail. Diagnostic Tests: Prior Coronary Angiography: LV ejection fraction within 6 months is 63%. Electrocardiography: EKG was assessed by ECG. EKG was Abnormal. EKG showed other abnormality. Medications Prior to Procedure: Aspirin and Statin. Technique: A 6Fr sheath was inserted in the sub-xyphoid utilizing the Seldinger technique. Radiation: Fluoro time was 0.8 minutes, dose area productwas 4,062 mGYcm2 and air kerma was 62 mGY. See the case log foradditional details. Conclusions: * Successful placement of pericardial drain for pre-tamponadephysiology. Complications/Events: The patient had no complications during these procedures. Recommendations: Based upon the results of this procedure, it was recommended thatmedical therapy be considered. Comments: Ultrasound access was used to identify the best approach fordraining a small circumferential pericardial effusion with tamponadephysiology. The subxyphoid approach showed the depth was excessive for reachingwith a needle, hence the reagan-apical approach was used, selecting theshortest distance to reach to the pericardium. The skin was prepped anddraped in a normal fashion and local anesthesia was applied to the skin. A standard needle was then used to track to the pericardial space.Once entered, a wire was introduced into the pericardial space andconfirmed with ultrasound and flouroscopy. Next, the tract was dilated andthe pigatil was placed into the pericardial space. Bloody fluid wasremoved, totalling ~300cc. Echo showed near resolution of the fluid in the pericardial space. Blood pressure was noted to increase by 80 mmHg. The catheter was sutured in place and sterile dresing were applied.The drain was connected to LCWS and a pleuravac was connected. Successful placement of pericardial drain. The attending physician was present for the entire procedure. Dr. Erich Amato M.D. was present during the moderate sedation intraservice time as documented by the sedation nurse. Case time =00:13. Dr. Erich Amato M.D. performed the pericardiocentesis and transthoracic echo . Erich Amato M.D. Electronically Signed by: Erich Amato M.D. Report Finalized: 01/11/2021 14:44 Erich Amato MD CARDIAC CATH ORDERAB LES * Lactate, whole blood, send to lab ([facility] (01/11/2021 1:10 PM EST) Lactate WB 2.1 0.5 - 2.2 mmol/L [facility] Blood specimen (specimen) 01/11/2021 1:10 PM EST 01/11/2021 1:25 PM EST Narrative Resulting Agency Comment Spec In Lab Judy Tijerina MD CHEMISTRY ORDERABLES Performing Organization Address City/State/[facility] Co de Phone Number [facility] [place] [address] * ECHO COMPLETE W CONTRAST (01/11/2021 10:21 AM EST) EF 63 HEARTLAB SYSTEM Anatomical Region Laterality Modality Other 01/11/2021 Narrative 01/11/2021 11:10 AM EST Procedure: ?Transthoracic Echocardiogram Patient: ?ISAAC Rodney ?(Age): 1970(50y) Med Rec#: ? [id number] ?Sex: ?M ? [place] ? [facility] ?Ht / Wt: ??167(cm)/185(kg) Pt. Loc: ?Adult Floor ? BSA: ?2.7 Study Date: ?? 01/11/2021 ?Pt. Type: Inpatient Tape: ? Referring: Rayo Bianchi ([id number]) Reading: Khurram Barillas ([id number]) Jewelry Enameler: Viola Moore Jewelry Enameler 2: Humza Wilson ([id number]) Interpreting Fellow: Humza Wilson ([id number]) Diagnosis: *Supraventricular tachycardia (I47.1) *1 vial Optison used BP: ? 112/74 SUMMARY: 1. There is a smal to moderate circumferential pericardial effusion most prominent around the right ventricle. There is no RV collapse, but there is echocardiographic evidence for hemodynamic significance (ventricular septal shift with respiration, variation in mitral E velocities, diastolic collapse of the right atrium, restriction to RV diastolic expansion, and IVC plethora). Clinical correlation required. 2. Compared to the limited TTE performed 01/10/2021, the pericardial effusion is better visualized but likely unchanged in size. Findings ? : Study Quality: ? Technically limited Left Ventricle: ? The left ventricular chamber size is normal. ?Mild concentric left ventricular hypertrophy is observed. ?There is no evidence of LVOT obstruction. ?There is normal global left ventricular systolic function. ?The quantitative left ventricular ejection fraction by biplane Malik's method is 63%. ?There are no left ventricular segmental wall motion abnormalities. ?Assessment of diastolic function is indeterminate. Left Atrium: ? The left atrium is normal in size. ?No atrial septal defect is visualized. Right Ventricle: ? Right ventricular chamber size, wall thickness, and systolic function are within normal limits. ?Pulmonary artery hypertension could not be assessed due to inadequate tricuspid regurgitation jet. Right Atrium: ? The right atrium appears normal. Aortic Valve: ? The aortic valve is trileaflet. The leaflets are thin with normal excursion. There is no aortic stenosis or regurgitation present. Mitral Valve: ? The mitral valve appears normal in structure and function. ?There is no evidence of mitral valve leaflet prolapse. ?There is trace mitral regurgitation present. Tricuspid Valve: ? The tricuspid valve appears normal in structure and function. ?There is trace tricuspid regurgitation present. Pulmonic Valve: ? The pulmonic valve appears normal in structure and function. Pericardium: ? The pericardium appears normal and there is no evidence of a pericardial effusion.respiratory variation present ?There is a moderate circumferential pericardial effusion. 1.0 to 1.6 cm to fat pad. ?A pericardial fat pad is visualized. ?Right atrial collapse is present. Aorta: ? The aortic root is normal in size. ?The ascending aorta is normal in size. ?There is no evidence of coarctation of the aorta. Pulmonary Artery: ? The main pulmonary artery appears normal. Venous: ? The inferior vena cava appears dilated. ?There is less than 50% respiratory change in the inferior vena cava dimension consistent with elevated right atrial pressure. Misc: ? See remainder of report for additional findings. ?Two-dimensional echo, spectral Doppler and color Doppler performed. ?Optison contrast (one 3 ml vial) was used to enhance endocardial definition. Excess contrast was discarded. Chambers 2D ?Value ?Units (Range) ? IVSd (2D) ? 1.24 ? cm ? LVPWd (2D) ?1.24 ? cm ? IVS:LVPW ratio (2D) 1 ?ratio ? RWT (2D) ?0.55 ? ratio ? RWT PW (2D) ? 0.55 ? ratio ? LVIDd (2D) ?4.52 ? cm ? LVIDs (2D) ?3.4 ?cm ? LVIDd (2D) index ?1.67 ? cm/m2 ? LVIDs (2D) index ?1.26 ? cm/m2 ? LV FS (2D) ?24.6 ? % ? EF Teichholz (2D) ?? 48.94 ?% ? Ao root diameter (2D3.1 ?cm (2.1 - 3.6) ? Ascending Ao ?3.13 ? cm (2 - 3.5) ? Volumes/Mass ?Value ?Units (Range) ? LA Area 4 CH ?19 ? cm2 (<21) ? LA ESV BP (A/L) inde21.56 ?ml/m2 ? LV ESV SP 4CH (MOD) 33.43 ?ml ? LV ESV SP 2CH (MOD) 17.63 ?ml ? LV EDV BP ? 72.25 ?ml ? LV ESV BP ? 26.46 ?ml ? LV EDV BP index ? 26.76 ?ml/m2 ? LV ESV BP index ? 9.8 ?ml/m2 ? BP EF (MOD) ? 63.37 ?% ? LV mass (2D) ?208.07 ? g ? LV mass (2D) index ??77.06 ?g/m2 ? Diastolic/Systolic Function ?Value ?Units (Range) ? MV E-wave Vmax ?0.52 ? m/sec ? MV deceleration rlpd503.21 ? msec ? MV A-wave Vmax ?0.41 ? m/sec ? MV E:A ratio ?1.12 ? ratio ? LV septal e' Vmax ?? 0.07 ? m/sec ? LV lateral e' Vmax ??0.07 ? m/sec ? LV average e' Vmax ??0.07 ? m/sec ? LV E:e' septal ratio6.62 ? ratio ? LV E:e' lateral rati6.62 ? ratio ? LV average E:e' rati6.62 ? ratio ? Tricuspid Valve ?Value ?Units (Range) ? IVC diameter ?2.6 ?cm ? Wall Motion: Segment Name ?Rest ? Base-Anteroseptal ?? Normal ? Base-Anterior ? Normal ? Base-Anterolateral ??Normal ? Base-Posterolateral Normal ? Base-Inferior ? Normal ? Base-Inferoseptal ?? Normal ? Mid-Anteroseptal ?Normal ? Mid-Anterior ?Normal ? Mid-Anterolateral ?? Normal ? Mid-Posterolateral ??Normal ? Mid-Inferior ?Normal ? Mid-Inferoseptal ?Normal ? [place]-Septal ? Normal ? [place]-Anterior ? Normal ? [place]-Lateral ?Normal ? [place]-Inferior ? Normal ? [place]-Tip ?Normal ? This report has been electronically signed by: Khurrma Barillas MD ? 01/11/2021 11:04:46 Images reviewed and interpretation verified [facility] Cardiac Ultrasound Laboratory Procedure Note Khurram Barillas MD - 01/11/2021 Procedure: Transthoracic Echocardiogram Patient: ISAAC Rodney (Age): 1970(50y) Med Rec#: [id number] Sex: M [place] [facility] [place] Ht / Wt: 167(cm)/185(kg) Pt. Loc: Adult Floor BSA: 2.7 Study Date: 01/11/2021 Pt. Type: Inpatient Tape: Referring: Rayo Bianchi ([id number]) Reading: Khurram Barillas ([id number]) Jewelry Enameler: Viola Moore Jewelry Enameler 2: Humza Wilson ([id number]) Interpreting Fellow: Humza Wilson ([id number]) Diagnosis: *Supraventricular tachycardia (I47.1) *1 vial Optison used BP: 112/74 SUMMARY: 1. There is a smal to moderate circumferential pericardial effusion most prominent around the right ventricle. There is no RV collapse, but there is echocardiographic evidence for hemodynamic significance (ventricular septal shift with respiration, variation in mitral E velocities, diastolic collapse of the right atrium, restriction to RV diastolic expansion, and IVC plethora). Clinical correlation required. 2. Compared to the limited TTE performed 01/10/2021, the pericardial effusion is better visualized but likely unchanged in size. Findings : Study Quality: Technically limited Left Ventricle: The left ventricular chamber size is normal. Mild concentric left ventricular hypertrophy is observed. There is no evidence of LVOT obstruction. There is normal global left ventricular systolic function. The quantitative left ventricular ejection fraction by biplane Malik's method is 63%. There are no left ventricular segmental wall motion abnormalities. Assessment of diastolic function is indeterminate. Left Atrium: The left atrium is normal in size. No atrial septal defect is visualized. Right Ventricle: Right ventricular chamber size, wall thickness, and systolic function are within normal limits. Pulmonary artery hypertension could not be assessed due to inadequate tricuspid regurgitation jet. Right Atrium: The right atrium appears normal. Aortic Valve: The aortic valve is trileaflet. The leaflets are thin with normal excursion. There is no aortic stenosis or regurgitation present. Mitral Valve: The mitral valve appears normal in structure and function. There is no evidence of mitral valve leaflet prolapse. There is trace mitral regurgitation present. Tricuspid Valve: The tricuspid valve appears normal in structure and function. There is trace tricuspid regurgitation present. Pulmonic Valve: The pulmonic valve appears normal in structure and function. Pericardium: The pericardium appears normal and there is no evidence of a pericardial effusion.respiratory variation present There is a moderate circumferential pericardial effusion. 1.0 to 1.6 cm to fat pad. A pericardial fat pad is visualized. Right atrial collapse is present. Aorta: The aortic root is normal in size. The ascending aorta is normal in size. There is no evidence of coarctation of the aorta. Pulmonary Artery: The main pulmonary artery appears normal. Venous: The inferior vena cava appears dilated. There is less than 50% respiratory change in the inferior vena cava dimension consistent with elevated right atrial pressure. Misc: See remainder of report for additional findings. Two-dimensional echo, spectral Doppler and color Doppler performed. Optison contrast (one 3 ml vial) was used to enhance endocardial definition. Excess contrast was discarded. Chambers 2D Value Units (Range) IVSd (2D) 1.24 cm LVPWd (2D) 1.24 cm IVS:LVPW ratio (2D) 1 ratio RWT (2D) 0.55 ratio RWT PW (2D) 0.55 ratio LVIDd (2D) 4.52 cm LVIDs (2D) 3.4 cm LVIDd (2D) index 1.67 cm/m2 LVIDs (2D) index 1.26 cm/m2 LV FS (2D) 24.6 % EF Teichholz (2D) 48.94 % Ao root diameter (2D3.1 cm (2.1 - 3.6) Ascending Ao 3.13 cm (2 - 3.5) Volumes/Mass Value Units (Range) LA Area 4 CH 19 cm2 (<21) LA ESV BP (A/L) inde21.56 ml/m2 LV ESV SP 4CH (MOD) 33.43 ml LV ESV SP 2CH (MOD) 17.63 ml LV EDV BP 72.25 ml LV ESV BP 26.46 ml LV EDV BP index 26.76 ml/m2 LV ESV BP index 9.8 ml/m2 BP EF (MOD) 63.37 % LV mass (2D) 208.07 g LV mass (2D) index 77.06 g/m2 Diastolic/Systolic Function Value Units (Range) MV E-wave Vmax 0.52 m/sec MV deceleration axzq716.21 msec MV A-wave Vmax 0.41 m/sec MV E:A ratio 1.12 ratio LV septal e' Vmax 0.07 m/sec LV lateral e' Vmax 0.07 m/sec LV average e' Vmax 0.07 m/sec LV E:e' septal ratio6.62 ratio LV E:e' lateral rati6.62 ratio LV average E:e' rati6.62 ratio Tricuspid Valve Value Units (Range) IVC diameter 2.6 cm Wall Motion: Segment Name Rest Base-Anteroseptal Normal Base-Anterior Normal Base-Anterolateral Normal Base-Posterolateral Normal Base-Inferior Normal Base-Inferoseptal Normal Mid-Anteroseptal Normal Mid-Anterior Normal Mid-Anterolateral Normal Mid-Posterolateral Normal Mid-Inferior Normal Mid-Inferoseptal Normal [place]-Septal Normal [place]-Anterior Normal [place]-Lateral Normal [place]-Inferior Normal [place]-Tip Normal This report has been electronically signed by: Khurram Barillas MD 01/11/2021 11:04:46 Images reviewed and interpretation verified [facility] Cardiac Ultrasound Laboratory Rayo Bianchi MD ECHO ORDERABLES * XR Chest One View (01/11/2021 10:18 AM EST) Anatomical Region Laterality Modality Chest N/A Digital Radiogra phy Impressions 01/11/2021 10:36 AM EST Hypoinflation with bibasilar atelectasis Thank you for letting us participate in the care of this patient. For questions regarding this report, please contact the number below. ? Electronically signed by: Tashia Hairston MD, [facility] ([phone]), at 01/11/2021 10:36 AM Narrative 01/11/2021 10:36 AM EST EXAMINATION: XR CHEST ONE VIEW CLINICAL HISTORY: worsening shortness of breath TECHNIQUE: 1 view of the chest COMPARISON: 01/11/2021 FINDINGS: Very low lung volumes with bibasilar atelectasis. . The remainder of the lungs are clear accounting for this. No pulmonary edema or pneumothorax. Heart and mediastinum are normal for projection. No large effusions Procedure Note Tashia Hairston MD - 01/11/2021 EXAMINATION: XR CHEST ONE VIEW CLINICAL HISTORY: worsening shortness of breath TECHNIQUE: 1 view of the chest COMPARISON: 01/11/2021 FINDINGS: Very low lung volumes with bibasilar atelectasis. . The remainder of the lungs are clear accounting for this. No pulmonaryedema or pneumothorax. Heart and mediastinum are normal for projection. Nolarge effusions IMPRESSION Hypoinflation with bibasilar atelectasis Thank you for letting us participate in the care of this patient. Forquestions regarding this report, please contact the number below. Electronically signed by: Tashia Hairston MD, [facility]([phone]), at 01/11/2021 10:36 AM Rayo Bianchi MD IMG DX ORDERABLES * POCT Glucose (01/11/2021 7:45 AM EST) [facility] POC Glucose 136 65 - 199 mg/dL [facility] Comment: Supplemental ranges: <140 mg/dL before meals <180 mg/dL all other times of the day Blood specimen (specimen) 01/11/2021 7:45 AM EST 01/11/2021 7:45 AM EST Judy Tijerina MD POINT OF CARE TEST O RDERABLES [facility] [place] [address] * (ABNORMAL) Differential, Automated (01/11/2021 7:40 AM EST) Pathologist [facility] Neutrophils % 85.3 % [facility] Neutr Abs (ANC) 11.24(H) 1.70 - 6.10 x10(3)/mc L [facility] Lymphocytes % 8.5 % [facility] Lymphocytes Abs 1.1 0.9 - 3.2 x10(3)/[facility] LABORATORY Monocytes % 5.5 % [facility] Monocyte Abs 0.7 0.3 - 0.9 x10(3)/[facility] LABORATORY Eosinophils % 0.0 % [facility] Eosinophils Abs 0.0 0.0 - 0.4 x10(3)/[facility]ORY Basophils % 0.1 % [facility] Basophils Abs 0.0 0.0 - 0.1 x10(3)/[facility] LABORATORY Immature Gran % 0.60 % [facility] Comment: Immature granulocytes(IG's)percentage and absolute count will include metamyelocytes, myelocytes, and promyelocytes. Blood smears from CBCs yielding IG's will be scanned manually for concordance. If this scan disagrees with the automated IG or if promyelocytes are noted, a manual differential will be performed. Amy Gran Abs 0.08(H) 0.00 - 0.04 x10(3)/[facility]ATORY Blood specimen (specimen) 01/11/2021 7:40 AM EST 01/11/2021 7:58 AM EST Narrative Resulting Agency Comment Spec In Lab Harini Jansen MD HEMATOLOGY ORDERABLE S Performing Organization Address City/State/[facility] Co de Phone Number [facility] [place] [address] * (ABNORMAL) Hemogram (01/11/2021 7:40 AM EST) WBC 13.2(H) 4.0 - 9.5 x10(3)/[facility] LABORATORY RBC 4.87 4.58 - 5.54 x10(6)/[facility] LABORATORY Hemoglobin 13.7 13.7 - 16.5 gm/dL [facility] Hematocrit 42.2 40.5 - 48.5 % [facility] MCV 86.7 82.9 - 93.1 fL [facility] MCH 28.1 27.5 - 32.1 pg [facility] MCHC 32.5 32.0 - 35.7 gm/dL [facility] Platelets 224 145 - 357 x10(3)/[facility] LABORATORY RDWSD 45.8(H) 36.0 - 45.0 fL [facility] RDWCV 14.3(H) 11.4 - 13.8 % [facility] MPV 10.7 7.6 - 12.9 fL [facility] nRBC % Auto 0.0 % [facility] nRBC Abs Auto 0.000 0.000 - 0.000 x10(3)/[facility] LABORATORY Blood specimen (specimen) 01/11/2021 7:40 AM EST 01/11/2021 7:58 AM EST Narrative Resulting Agency Comment Spec In Lab Harini Jansen MD HEMATOLOGY ORDERABLE S [facility] [place] [address] * (ABNORMAL) BMP w/fasting Glucose (01/11/2021 7:40 AM EST) Glucose Fasting 155(H) 65 - 99 mg/dL [facility] Comment: ?Fasting* Glucose Interpretive Criteria Normal ?65-99 mg/dL Impaired Fasting glucose ?100-125 mg/dL Consistent with Diabetes Mellitus ? >or= 126 mg/dL *Fasting is defined as no caloric intake for at least 8 hours In the absence of unequivocal hyperglycemia a plasma glucose value of >or= 126 mg/dL should be repeated on a subsequent day. Diagnosis and Classification of Diabetes Mellitus, Position Statement from the [place] [employer]. ??Diabetes Care, Volume 33, Supplement 1, Nov 2009 BUN 15 10 - 20 mg/dL [facility] Creatinine 0.86 0.80 - 1.50 mg/dL [facility] Sodium 134(L) 135 - 145 mmol/L [facility] Potassium 4.9 3.5 - 5.0 mmol/L [facility] Comment: Please note: ??Patients with WBC >100,000 may have falsely elevated Potassium levels. ??For accurate Potassium quantification in these patients send serum separator tube (gold top) for subsequent determinations. ??Contact the Clinical Chemistry Laboratory if there are any questions. Chloride 104 98 - 107 mmol/L [facility] CO2 19(L) 22 - 31 mmol/L [facility] Anion Gap 11 5 - 15 mmol/L [facility] Calcium 8.1(L) 8.5 - 10.5 mg/dL [facility] Estimated GFR 100 >=60 mL/min/1. 73 m?? [facility] Comment: This patient? s estimated glomerular filtration rate (eGFR) is between 100 mL/min/1.73 m2 (patients with less muscle mass per kg body weight) and 116 mL/min/1.73 m2 (patients with more muscle mass per kg body weight) as determined by the CKD-EPI equation. Assessment of eGFR is not appropriate when creatinine concentrations are rapidly changing. For clinical decisions where creatinine clearance will affect therapy, a 24-hour urine creatinine clearance may be advised. Assignment of CKD stage 1 ? 5 for patients with an eGFR near the transition point between stages may be based on clinical assessment of muscle mass and symptoms in addition to eGFR. Blood specimen (specimen) 01/11/2021 7:40 AM EST 01/11/2021 7:58 AM EST Narrative Resulting Agency Comment Spec In Lab Judy Tijerina MD CHEMISTRY ORDERABLES [facility] [place] [address] * (ABNORMAL) Lactate, whole blood, [place] [place] [place] (01/11/2021 7:40 AM EST) Pathologist [facility] Lactate WB 2.7(H) 0.5 - 2.2 mmol/L [facility] Blood specimen (specimen) 01/11/2021 7:40 AM EST 01/11/2021 8:00 AM EST Narrative Resulting Agency Comment Spec In Lab Judy Tijerina MD CHEMISTRY ORDERABLES [facility] [place] [address] * (ABNORMAL) Hepatic Function Panel (01/11/2021 6:40 AM EST) [facility] Total Protein 5.9(L) 6.1 - 8.0 gm/dL [facility] Albumin 3.3 3.2 - 5.2 gm/dL [facility] AST 47(H) 0 - 39 unit/L [facility] ALT 40 0 - 55 unit/L [facility] Alk Phos 47 40 - 130 unit/L [facility] Total Bilirubin 0.4 0.2 - 1.3 mg/dL [facility] Bili, Direct 0.1 0.0 - 0.3 mg/dL [facility] Blood specimen (specimen) Venous Draw / Unknown 01/11/2021 6:40 AM EST 01/11/2021 6:48 AM EST Narrative Resulting Agency Comment Spec In Lab Harini Jansen MD CHEMISTRY ORDERABLES [facility] [place] [address] * (ABNORMAL) Troponin (01/11/2021 6:40 AM EST) [facility] Troponin-T 1.06(H) 0.00 - 0.00 ng/mL [facility] Comment: The 99th percentile for Troponin T is less than 0.01 ng/mL, any detectable cTnT concentration using this assay should be considered elevated. According to the third universal definition of myocardial infarction the following criteria with a clinical presentation consistent with acute myocardial ischemia meets the diagnosis for a myocardial infarction ([place]). Detection of a rise and/or fall of cTnT, with at least one value greater than the 99th percentile (> or = 0.01) and with at least one of the following ?? Symptoms of ischemia ?? New or presumed new significant [id number] wave (ST-T) changes or new left bundle [...] additional sample may be indicated. Reference: Third [place] Definition of Myocardial Infarction. Journal of the [place] [employer] 2012;60:1581-98 Blood specimen (specimen) 01/11/2021 6:40 AM EST 01/11/2021 6:47 AM EST Narrative Resulting Agency Comment Spec In Lab Rayo Bianchi MD CHEMISTRY ORDERABLES Performing Organization Address City/State/[facility] Co de Phone Number [facility] [place] [address] * EKG 12 Lead (01/11/2021 6:29 AM EST) Ventricular rate 101 BPM MUSE SYSTEM Atrial Rate 101 BPM MUSE SYSTEM P-R Interval 150 ms MUSE SYSTEM QRS Duration 88 ms MUSE SYSTEM Q-T Interval 360 ms MUSE SYSTEM QTC Calculated (Bezet) 466 ms MUSE SYSTEM Calculated P [place] 46 degrees MUSE SYSTEM Calculated R [place] 47 degrees MUSE SYSTEM Calculated T [place] 29 degrees MUSE SYSTEM INTERPRETATION Sinus tachycardia Low voltage QRS Borderline ECG When compared with ECG of 11-JAN-2021 01:59, (unconfirmed) No significant change was found Confirmed by MD Alecia, Ruperto Moya ([id number]) on 01/11/2021 5:10:03 PM MUSE SYSTEM 01/11/2021 6:29 AM EST 01/11/2021 5:10 PM EST Rayo Bianchi MD ECG ORDERABLES Performing Organization Address City/[facility]/ZIP Co de Phone Number MUSE SYSTEM * Blood culture (01/11/2021 4:51 AM EST) Blood Culture No growth at 5 days. [facility] Blood specimen (specimen) STRUCTURE OF RIGHT HAND / Unknown 01/11/2021 4:51 AM EST 01/11/2021 6:43 AM EST Comment:SET 2 Narrative Resulting Agency Comment Spec In Lab Fadi Escobar MD MICROBIOLOGY - BLOOD ORDERABLES Performing Organization Address [facility] de Phone Number [place] [phone] * Blood culture (01/11/2021 4:30 AM EST) Blood Culture No growth at 5 days. [facility] Blood specimen (specimen) STRUCTURE OF RIGHT HAND / Unknown 01/11/2021 4:30 AM EST 01/11/2021 6:44 AM EST Narrative Resulting Agency Comment Spec In Lab Fadi Escobar MD MICROBIOLOGY - BLOOD ORDERABLES Performing Organization Address [facility] de Phone Number [facility] [place] [address] * XR Chest One View (01/11/2021 2:13 AM EST) Anatomical Region Laterality Modality Chest N/A Digital Radiogra phy Impressions 01/11/2021 7:50 AM EST 1. ??Limited examination. 2. ??The lung volumes are decreased, which accentuates the pulmonary vascular markings and cardiac silhouette. 3. ??No focal pulmonary opacity 4. ??Stable moderate cardiomegaly. Thank you for letting us participate in the care of this patient. For questions regarding this report, please contact the number below. ? Electronically signed by: Chavo Bartlett DO [facility] ([phone]), at 01/11/2021 7:50 AM Narrative 01/11/2021 7:50 AM EST EXAMINATION: XR CHEST ONE VIEW CLINICAL HISTORY: 50-year-old male with mild pleuritic pain. TECHNIQUE: 2 AP sitting portable upright radiographs of the chest were obtained. COMPARISON: Comparison is made to multiple prior chest radiograph examinations, the most recent which is dated December 16, 2020.. FINDINGS: Patient body habitus limits evaluation. Multiple monitoring devices overlie the patient. The lung volumes are decreased, which accentuates the pulmonary vascular markings and cardiac silhouette. ??There is no focal pulmonary opacity. ??There is no pleural effusion. ??There is no pneumothorax. The trachea is midline. ??Hilar structures are limited in evaluation. The cardiac silhouette is moderately enlarged. ??There is stable widening of the superior mediastinum. Visualized structures within the superior abdomen are unremarkable. Osseous structures are unchanged. Procedure Note Chavo Bartlett DO - 01/11/2021 EXAMINATION: XR CHEST ONE VIEW CLINICAL HISTORY: 50-year-old male with mild pleuritic pain. TECHNIQUE: 2 AP sitting portable upright radiographs of the chest wereobtained. COMPARISON: Comparison is made to multiple prior chest radiographexaminations, the most recent which is dated December 16, 2020.. FINDINGS: Patient body habitus limits evaluation. Multiple monitoring devices overlie the patient. The lung volumes are decreased, which accentuates the pulmonary vascular markings and cardiac silhouette. There is no focal pulmonary opacity.There is no pleural effusion. There is no pneumothorax. The trachea is midline. Hilar structures are limited in evaluation. The cardiac silhouette is moderately enlarged. There is stable wideningof the superior mediastinum. Visualized structures within the superior abdomen are unremarkable. Osseous structures are unchanged. IMPRESSION 1. Limited examination. 2. The lung volumes are decreased, which accentuates the pulmonaryvascular markings and cardiac silhouette. 3. No focal pulmonary opacity 4. Stable moderate cardiomegaly. Thank you for letting us participate in the care of this patient. Forquestions regarding this report, please contact the number below. Electronically signed by: Chavo Bartlett DO, [facility]([phone]), at 01/11/2021 7:50 AM Rayo Bianchi MD IMG DX ORDERABLES * (ABNORMAL) Lactate, whole blood, [place] lab [place] [place] [place] (01/11/2021 2:05 AM EST) [facility] Lactate WB 3.5(H) 0.5 - 2.2 mmol/L [facility] Blood specimen (specimen) Venous Draw / Unknown 01/11/2021 2:05 AM EST 01/11/2021 2:14 AM EST Narrative Resulting Agency Comment Spec In Lab Ernie Thrasher MD CHEMISTRY ORDER BELEN [facility] [place] [address] * EKG 12 Lead (01/11/2021 1:59 AM EST) Pathologist [facility] Ventricular rate 96 BPM MUSE SYSTEM Atrial Rate 96 BPM MUSE SYSTEM P-R Interval 148 ms MUSE SYSTEM QRS Duration 84 ms MUSE SYSTEM Q-T Interval 366 ms MUSE SYSTEM QTC Calculated (Bezet) 462 ms MUSE SYSTEM Calculated P [place] 52 degrees MUSE SYSTEM Calculated R [place] 60 degrees MUSE SYSTEM Calculated T [place] 19 degrees MUSE SYSTEM INTERPRETATION Normal sinus rhythm Baseline artifact Normal ECG When compared with ECG of 17-DEC-2020 02:40, Sinus rhythm has replaced Atrial fibrillation I personally reviewed the tracing and edited the fellows interpretation Confirmed by fellow Fernandez Higuera ([id number]) on 01/11/2021 10:24:41 AM Confirmed by Vini Chanel ([id number]) on 01/12/2021 5:28:31 PM MUSE SYSTEM 01/11/2021 1:59 AM EST 01/12/2021 5:28 PM EST Rayo Bianchi MD ECG ORDERABLES MUSE SYSTEM * (ABNORMAL) Differential, Automated (01/10/2021 9:55 PM EST) Neutrophils % 88.7 % [facility] Neutr Abs (ANC) 14.29(H) 1.70 - 6.10 x10(3)/ L [facility] Lymphocytes % 8.9 % [facility] Lymphocytes Abs 1.4 0.9 - 3.2 x10(3)/[facility] Monocytes % 1.4 % [facility] Monocyte Abs 0.2(L) 0.3 - 0.9 x10(3)/[facility] Eosinophils % 0.1 % [facility] Eosinophils Abs 0.0 0.0 - 0.4 x10(3)/[facility] Basophils % 0.3 % [facility] Basophils Abs 0.0 0.0 - 0.1 x10(3)/[facility] Immature Gran % 0.60 % [facility] Comment: Immature granulocytes(IG's)percentage and absolute count will include metamyelocytes, myelocytes, and promyelocytes. Blood smears from CBCs yielding IG's will be scanned manually for concordance. If this scan disagrees with the automated IG or if promyelocytes are noted, a manual differential will be performed. Amy Gran Abs 0.09(H) 0.00 - 0.04 x10(3)/[facility] Blood specimen (specimen) 01/10/2021 9:55 PM EST 01/10/2021 10:01 PM EST Narrative Resulting Agency Comment Spec In Lab Ernie Thrasher MD HEMATOLOGY ORDE RYLIE [facility] [place] [address] * (ABNORMAL) Hemogram (01/10/2021 9:55 PM EST) Pathologist [facility] WBC 16.1(H) 4.0 - 9.5 x10(3)/[facility] LABORATORY RBC 4.79 4.58 - 5.54 x10(6)/[facility] Hemoglobin 13.5(L) 13.7 - 16.5 gm/dL [facility] Hematocrit 41.1 40.5 - 48.5 % [facility] MCV 85.8 82.9 - 93.1 [facility]ORY MCH 28.2 27.5 - 32.1 pg [facility] MCHC 32.8 32.0 - 35.7 gm/dL [facility] Platelets 253 145 - 357 x10(3)/[facility] LABORATORY RDWSD 44.0 36.0 - 45.0 [facility] RDWCV 14.2(H) 11.4 - 13.8 % [facility] MPV 10.3 7.6 - 12.9 [facility] nRBC % Auto 0.0 % [facility] nRBC Abs Auto 0.000 0.000 - 0.000 x10(3)/[facility] Blood specimen (specimen) 01/10/2021 9:55 PM EST 01/10/2021 10:01 PM EST Narrative Resulting Agency Comment Spec In Lab Ernie Thrasher MD HEMATOLOGY SCOOTER YOUNGBLOOD [facility] [place] [address] * (ABNORMAL) APTT (01/10/2021 9:55 PM EST) Pathologist [facility] PTT 66(H) 25 - 37 sec [facility] Comment: The PTT is NOT appropriate for heparin monitoring. Use the Anti-Xa level for heparin monitoring (HEP UFH) or LMWH monitoring (HEP LMW). A PTT less than 37 seconds generally indicates adequate hemostasis. Blood specimen (specimen) 01/10/2021 9:55 PM EST 01/10/2021 10:01 PM EST Narrative Resulting Agency Comment Spec In Lab Fadi Escobar MD HEMATOLOGY ORDERABLE S Performing Organization Address [facility] de Phone Number [facility] [place] [address] * (ABNORMAL) Prothrombin Time (01/10/2021 9:55 PM EST) PT 15.6(H) 9.4 - 12.5 sec [facility] INR 1.4 [facility] Comment: An INR <2.0 indicates adequate procoagulant activity for hemostasis in most patients without underlying bleeding disorders, though the INR may not adequately reflect hemostatic capacity in patients with liver disease and synthetic impairment. The recommended target INR range for therapeutic anticoagulation is 2.0 ? 3.0 for most applications, though lower and higher ranges may be appropriate depending on clinical circumstances. Blood specimen (specimen) 01/10/2021 9:55 PM EST 01/10/2021 10:01 PM EST Narrative Resulting Agency Comment Spec In Lab Fadi Escobar MD HEMATOLOGY ORDERABLE S Performing Organization Address [facility] de Phone Number [facility] [place] [address] * (ABNORMAL) Hepatic Function Panel (01/10/2021 9:55 PM EST) Total Protein 6.1 6.1 - 8.0 gm/dL [facility] Albumin 3.3 3.2 - 5.2 gm/dL [facility] AST 46(H) 0 - 39 unit/L [facility] ALT 40 0 - 55 unit/L [facility] Alk Phos 51 40 - 130 unit/L [facility] Total Bilirubin 0.5 0.2 - 1.3 mg/dL [facility] Bili, Direct 0.2 0.0 - 0.3 mg/dL [facility] Blood specimen (specimen) 01/10/2021 9:55 PM EST 01/10/2021 10:01 PM EST Narrative Resulting Agency Comment Spec In Lab Fadi Escobar MD CHEMISTRY ORDERABLES Performing Organization Address [facility] Co de Phone Number [facility] [place] [address] * (ABNORMAL) Magnesium (01/10/2021 9:55 PM EST) Magnesium 0.63(L) 0.69 - 1.07 mmol/L [facility] Blood specimen (specimen) 01/10/2021 9:55 PM EST 01/10/2021 10:01 PM EST Narrative Resulting Agency Comment Spec In Lab Fadi Escobar MD CHEMISTRY ORDERABLES Performing Organization Address [facility] de Phone Number [facility] [place] [address] * (ABNORMAL) Basic Metabolic Panel (non-fasting) (01/10/2021 9:55 PM EST) Glucose Lvl 171 65 - 199 mg/dL [facility] Comment:Diabetes: >=200 mg/d L plus symptoms BUN 15 10 - 20 mg/dL [facility] Creatinine 0.89 0.80 - 1.50 mg/dL [facility] Sodium 138 135 - 145 mmol/L [facility] Potassium 4.3 3.5 - 5.0 mmol/L [facility] Comment: Please note: ??Patients with WBC >100,000 may have falsely elevated Potassium levels. ??For accurate Potassium quantification in these patients send serum separator tube (gold top) for subsequent determinations. ??Contact the Clinical Chemistry Laboratory if there are any questions. Chloride 107 98 - 107 mmol/L [facility] CO2 18(L) 22 - 31 mmol/L [facility] Anion Gap 13 5 - 15 mmol/L [facility] Calcium 8.1(L) 8.5 - 10.5 mg/dL [facility] Estimated GFR 99 >=60 mL/min/1. 73 m?? [facility] Comment: This patient? s estimated glomerular filtration rate (eGFR) is between 99 mL/min/1.73 m2 (patients with less muscle mass per kg body weight) and 115 mL/min/1.73 m2 (patients with more muscle mass per kg body weight) as determined by the CKD-EPI equation. Assessment of eGFR is not appropriate when creatinine concentrations are rapidly changing. For clinical decisions where creatinine clearance will affect therapy, a 24-hour urine creatinine clearance may be advised. Assignment of CKD stage 1 ? 5 for patients with an eGFR near the transition point between stages may be based on clinical assessment of muscle mass and symptoms in addition to eGFR. Blood specimen (specimen) 01/10/2021 9:55 PM EST 01/10/2021 10:01 PM EST Narrative Resulting Agency Comment Spec In Lab Fadi Escobar MD CHEMISTRY ORDERABLES [facility] [place] [address] * ELECTROPHYSIOLOGY PROCEDURE (01/10/2021 6:28 PM EST) Anatomical Region Laterality Modality Other Narrative 01/22/2021 8:24 AM EDT Cardiac Electrophysiology Please refer to the operative note filed under the inpatient tab following the completion of this procedure. Fadi Escobar MD EP PROCEDURE ORDERAB LES * (ABNORMAL) Point of Care Blood Gas Historical (01/10/2021 4:20 PM EST) POC pH 7.41 7.35 - 7.45 [facility] [facility] P[facility] PCO2 40 35 - 45 mmHg [facility] POC PO2 149(H) 85 - 104 mmHg [facility] POC Base Excess 0.0 -3.0 - 3.0 mmol/L [facility] POC HCO3 24.8 20.0 - 26.0 mmol/L [facility] POC Sodium 139 135 - 145 mmol/L [facility] POC Potassium 3.9 3.5 - 5.0 mmol/L [facility] POC Hematocrit 42.0 40.0 - 51.0 % [facility] POC Calc Hgb 14.3 13.7 - 17.5 gm/dL [facility] Comment:The calculation of h emoglobin from hematocrit assumes a normal MCHC. POC Bgas Loc CC LAB [facility] Blood specimen (specimen) 01/10/2021 4:20 PM EST 01/11/2021 9:00 AM EST Jose Anand MD CHEMISTRY ORDERABLES Performing Organization Address City/State/[facility] Co de Phone Number [facility] [place] [address] * COVID-19 PCR (01/10/2021 12:32 PM EST) SARS-CoV-2 RNA PCR Not Detected Not Detected [facility] Comment: This result should be interpreted in combination with the clinical observations, patient history and epidemiological information. For testing of asymptomatic individuals, assay performance characteristics and clinical utility have not been evaluated. Testing for SARS-CoV-2 (Severe acute respiratory syndrome coronavirus 2, formerly known as 2019 novel coronavirus or 2019-nCoV) to aid in the diagnosis of COVID-19 is performed using the Simplexa COVID-19 Direct Assay by [employer] as authorized by the FDA issued Emergency Use Authorization (EUA). This assay is intended for In-vitro Diagnostic (IVD) use with nasopharyngeal swabs collected from individuals meeting the CDC criteria for testing. The assay is performed based on the instructions for use and additional guidance provided by the FDA. Testing is performed in the Microbiology Laboratory within the Department of Pathology and Laboratory Medicine at [facility], certified under the Clinical Laboratory Improvement Amendments of 1988 (CLIA), 42 U.S.C. section 263a, to perform high complexity tests. Assay performance has been verified according to clinical laboratory regulatory requirements. Test results are provided above. A result of Not Detected indicates that the viral RNA target is not present but does not preclude SARS-CoV-2 infection. False negative results may occur if a specimen is improperly collected, transported or handled; if amplification inhibitors are present; or if inadequate numbers of viral particles are present in the specimen. A result of Detected suggests a current or recent infection and the patient is presumed to be infected. Positive and negative predictive values for this test are highly dependent on disease prevalence. A result of Invalid indicates the inability to conclusively determine the presence or absence of SARS-CoV-2 RNA in the sample which can be due to a variety of factors. Recollection is recommended in the case of an invalid result. CDC COVID-19 criteria for testing on human specimens and clinical management guidance information are available at the CDC Coronavirus Disease 2019 (COVID-19) webpage under Information for Healthcare Professionals (https://www.cdc.gov/coronavirus/2019-ncov/hcp/index.html). Additional information about this and other EUA tests can be found in provider and patient fact sheets at the following FDA website: https://www.fda.gov/medical-devices/hkhphudraiq-cnrmcfp-5220-yhgmo-50-jaejkygjf- use-a mkrkuzsjoovom-xicsadq-rtcltcz/gvace-nynrmqllisv-hnfd SARS-CoV-2 Source [employer] [facility] Nasopharyngeal swab (specimen) 01/10/2021 12:32 PM EST 01/10/2021 1:22 PM EST Comment:Symptoms->Surveillan ce Narrative Resulting Agency Comment Spec In Lab Fadi Escobar MD MICROBIOLOGY - GENER AL ORDERABLES [facility] [place] [address] documented in this encounter Visit Diagnoses Diagnosis SVT (supraventricular tachycardia)- Primary Other specified cardiac dysrhythmias SVT (supraventricular tachycardia) Other specified cardiac dysrhythmias PAF (paroxysmal atrial fibrillation) Atrial fibrillation Pericardial effusion Unspecified disease of pericardium PAF (paroxysmal atrial fibrillation) Atrial fibrillation H/O cardiac radiofrequency ablation SVT (supraventricular tachycardia) Other specified cardiac dysrhythmias PAF (paroxysmal atrial fibrillation) Atrial fibrillation documented in this encounter Admitting Diagnoses Diagnosis SVT (supraventricular tachycardia) Other specified cardiac dysrhythmias PAF (paroxysmal atrial fibrillation) Atrial fibrillation H/O cardiac radiofrequency ablation documented in this encounter Administered Medications Inactive Administered Medications - up to 3 most recent administrations Medication Order MAR Action Action Date Dose Rate Site acetaminophen (Tylenol) tablet 650 mg 650 mg, Oral, EVERY 6 HOURS PRN, Starting on Fri01/10/21 at 2329, Until Fri01/11/21 at 1202, Pain, Maximum dose of acetaminophen is 4000 mg from all sources in 24 hours. When ordered for pain, acetaminophen should be given even when other ordered pain medications are indicated. , Routine Given 01/11/2021 8:27 AM EST 650 mg acetaminophen (Tylenol) tablet 975 mg 975 mg, Oral, EVERY 6 HOURS PRN, Starting on Fri01/11/21 at 1202, Until Fri01/12/21 at 0833, Pain, Maximum dose of acetaminophen is 4000 mg from all sources in 24 hours. When ordered for pain, acetaminophen should be given even when other ordered pain medications are indicated. , Routine Given 01/12/2021 3:22 AM EST 975 mg Given 01/11/2021 9:05 PM EST 975 mg Given 01/11/2021 3:16 PM EST 975 mg acetaminophen (Tylenol) tablet 975 mg 975 mg, Oral, EVERY 6 HOURS SCHEDULED, First dose (after last modification) on Fri01/12/21 at 1100, Until Discontinued, Maximum dose of acetaminophen is 4000 mg from all sources in 24 hours. When ordered for pain, acetaminophen should be given even when other ordered pain medications are indicated. , Routine Given 01/13/2021 11:17 AM EST 975 mg Given 01/13/2021 6:20 AM EST 975 mg Given 01/12/2021 11:34 PM EST 975 mg AMIOdarone (Cordarone; Pacerone) tablet 400 mg 400 mg, Oral, DAILY, First dose (after last modification) on Fri01/11/21 at 0900, Until Discontinued, Routine Given 01/13/2021 8:25 AM EST 400 mg Given 01/12/2021 8:40 AM EST 400 mg Given 01/11/2021 8:28 AM EST 400 mg apixaban (Eliquis) tablet 5 mg 5 mg, Oral, 2 TIMES DAILY, First dose on Fri01/12/21 at 2100, Until Discontinued, Anticoagulant, Routine, Restricted anticoagulant, choose the most appropriate response: Continuation of ongoing therapy Given 01/13/2021 8:26 AM EST 5 mg Given 01/12/2021 9:00 PM EST 5 mg aspirin 81 mg chewable tablet 1 dose, Starting on Fri01/11/21 at 0034, Until Fri01/11/21 at 0036, Citlali Flores: navdeep override aspirin chewable tablet 81 mg 81 mg, Oral, DAILY, First dose on Fri01/11/21 at 0015, Until Discontinued, Routine Given 01/11/2021 12:36 AM EST 81 mg aspirin EC tablet 650 mg 650 mg, Oral, 3 TIMES DAILY, First dose (after last modification) on Fri01/11/21 at 2100, Until Discontinued, Routine Given 01/13/2021 2:49 PM EST 650 mg Given 01/13/2021 8:24 AM EST 650 mg Given 01/12/2021 8:59 PM EST 650 mg atorvastatin (Lipitor) tablet 20 mg 20 mg, Oral, EVERY EVENING, First dose on Fri01/10/21 at 2345, Until Discontinued, Routine Given 01/12/2021 5:22 PM EST 20 mg Given 01/11/2021 4:41 PM EST 20 mg Given 01/11/2021 12:35 AM EST 20 mg atropine (0.1 mg/mL) injection 1 mg 1 mg, Intravenous, Administer over 4 Hours, EVERY 5 MIN PRN, 2 doses, Starting on Fri01/11/21 at 1946, Until 01/13/21 at 1737, Other, vasovagal episode, Call interventional MD., Cath (Recovery-Hospital Unit), Routine clonazePAM (KlonoPIN) tablet 1 mg 1 mg, Oral, 2 TIMES DAILY PRN, Starting on Fri01/10/21 at 2329, Until Fri01/13/21 at 1737, Anxiety, DO NOT SPLIT, CRUSH OR OPEN, Routine Given 01/12/2021 8:48 AM EST 1 mg Given 01/11/2021 9:07 PM EST 1 mg colchicine (Colcrys) tablet 0.6 mg 0.6 mg, Oral, DAILY, First dose on Fri01/12/21 at 0900, Until Discontinued, Maximum dose: 2.4 mg/24 hours. DO NOT SPLIT, CRUSH OR OPEN, Routine Given 01/13/2021 8:27 AM EST 0.6 mg Given 01/12/2021 8:40 AM EST 0.6 mg colchicine (Colcrys) tablet 1.2 mg 1.2 mg, Oral, ONCE, 1 dose, On Fri01/11/21 at 1045, Maximum dose: 2.4 mg/24 hours. DO NOT SPLIT, CRUSH OR OPEN, Routine Given 01/11/2021 10:33 AM EST 1.2 mg heparin (porcine) (5,000 units/1 mL) subcutaneous injection 5,000 Units 5,000 Units, Subcutaneous, EVERY 8 HOURS SCHEDULED, First dose on Fri01/11/21 at 2200, Until Discontinued, Routine Given 01/12/2021 2:38 PM EST 5,000 Units Abdominal Tissue Given 01/11/2021 9:06 PM EST 5,000 Units HYDROmorphone (Dilaudid) (1 mg/mL) injection syringe 0.4 mg 0.4 mg, Intravenous, EVERY 4 HOURS PRN, Starting on Fri01/11/21 at 1727, Until Fri01/12/21 at 0004, Pain, Routine Given 01/11/2021 10:14 PM EST 0.4 mg Left Arm Given 01/11/2021 5:49 PM EST 0.4 mg Le ft Arm HYDROmorphone (Dilaudid) (1 mg/mL) injection syringe 0.4 mg 0.4 mg, Intravenous, EVERY 2 HOURS PRN, Starting on Fri01/12/21 at 0022, Until Fri01/13/21 at 1737, Pain, Routine Given 01/12/2021 9:02 PM EST 0.4 mg Given 01/12/2021 10:14 AM EST 0.4 mg Given 01/12/2021 5:21 AM EST 0.4 mg ketorolac (Toradol) (30 mg/mL) injection 30 mg 30 mg, Intravenous, ONCE, 1 dose, On Fri01/11/21 at 1500, Routine Given 01/11/2021 2:49 PM EST 30 mg lamoTRIgine (LaMICtal) tablet 100 mg 100 mg, Oral, DAILY, First dose (after last modification) on Fri01/12/21 at 0900, Until Discontinued, Routine Given 01/13/2021 8:24 AM EST 100 mg Given 01/12/2021 8:40 AM EST 100 mg lamoTRIgine (LaMICtal) tablet 200 mg 200 mg, Oral, DAILY, First dose on Fri01/11/21 at 0900, Until Discontinued, Routine Given 01/11/2021 8:28 AM EST 200 mg lidocaine (Lidoderm) 5% topical patch 1 patch 1 patch, Transdermal, EVERY 24 HOURS, First dose on Fri01/12/21 at 0600, Until Discontinued, Apply patch(es) for 12 hours, and then remove for 12 hours., Routine Patch Applied 01/12/2021 5:50 AM EST 1 patch 11- Chest (Left) lidocaine (Lidoderm) 5% topical patch 3 patch 3 patch, Transdermal, EVERY 24 HOURS, First dose (after last modification) on Fri01/12/21 at 0900, Until Discontinued, Apply patch(es) for 12 hours, and then remove for 12 hours., Routine Patch Applied 01/13/2021 8:27 AM EST 3 patches 11- Chest (Left) Patch Applied 01/12/2021 10:52 AM EST 2 patches 11- Chest (Left) lidocaine (Lidoderm) topical patch REMOVAL Transdermal, EVERY 24 HOURS, First dose (after last modification) on Fri01/12/21 at 2100, Until Discontinued, Remove lidocaine 5% patch loperamide (Imodium A-D) capsule 4 mg 4 mg, Oral, 4 TIMES DAILY PRN, Starting on 01/13/21 at 1244, Until 01/13/21 at 1737, Diarrhea, Do not exceed 16 mg/day., Routine Given 01/13/2021 1:41 PM EST 4 mg magnesium sulfate 2 g in sterile water 50 mL infusion 2 g, Intravenous, ONCE, 1 dose, On Fri01/11/21 at 0030, Administer over 120 Minutes New Bag 01/11/2021 12:38 AM EST 2 g 25 mL/hr magnesium sulfate 2 g in sterile water 50 mL infusion 2 g, Intravenous, ONCE, 1 dose, On Candi 01/11/21 at 0815, Administer over 120 Minutes New Bag 01/11/2021 8:38 AM EST 2 g 25 mL/hr metoprolol tartrate (Lopressor) tablet 12.5 mg 12.5 mg, Oral, EVERY 6 HOURS SCHEDULED, First dose (after last modification) on Fri01/13/21 at 1800, Until Discontinued, Routine metoprolol tartrate (Lopressor) tablet 25 mg 25 mg, Oral, EVERY 6 HOURS SCHEDULED, First dose on Fri01/13/21 at 0930, Until Discontinued, Routine Given 01/13/2021 9:11 AM EST 25 mg midazolam (pf) (Versed) (1 mg/mL) injection 1 mg 1 mg, Intravenous, Administer over 4 Hours, EVERY 1 HOUR PRN, 2 doses, Starting on Candi 01/11/21 at 1946, Until Fri01/13/21 at 1737, For sheath removal, May repeat once while in Cath Recovery Unit., Cath (Recovery-Hospital Unit), Routine morphine (2 mg/mL) injection 1 mg 1 mg, Intravenous, ONCE, 1 dose, On Candi 01/11/21 at 1615, Routine Given 01/11/2021 3:32 PM EST 1 mg oxyCODONE (Roxicodone) tablet 5 mg 5 mg, Oral, ONCE, 1 dose, On Candi 01/11/21 at 1715, Routine Given 01/11/2021 4:41 PM EST 5 mg oxyCODONE (Roxicodone) tablet 5 mg 5 mg, Oral, ONCE, 1 dose, On Fri01/12/21 at 0015, STAT Given 01/11/2021 11:48 PM EST 5 mg pantoprazole EC (Protonix) tablet 40 mg 40 mg, Oral, 2 TIMES DAILY, First dose on Fri01/10/21 at 2345, Until Discontinued, DO NOT CRUSH OR OPEN, Routine Given 01/13/2021 8:26 AM EST 40 mg Given 01/12/2021 9:00 PM EST 40 mg Given 01/12/2021 8:40 AM EST 40 mg PHENYLephrine (Sukhi-Synephrine) (80 mcg/mL) in sodium chloride 0.9% 250 mL infusion 60 mcg/min (45 mL/hr), Intravenous, CONTINUOUS PRN, Starting on Fri01/10/21 at 1944, Until Fri01/10/21 at 2329, Per the Vasopressor Administration Policy, [place] 2657: A central line must be placed for the administration of vasopressor infusions lasting longer than 8 hours. Warning Vesicant/Irritant Medication , PACU Recovery New Bag 01/10/2021 8:30 PM EST 40 mcg/min 30 mL/hr PHENYLephrine (Sukhi-Synephrine) (80 mcg/mL) in sodium chloride 0.9% 250 mL infusion 0-180 mcg/min (0-135 mL/hr), Intravenous, CONTINUOUS, Starting on Fri01/10/21 at 2200, Until Fri01/13/21 at 0703, Titrate to maintain mean arterial pressure (MAP) greater than 65 mmHg. Start at 50 mcg/min and adjust dose by 25 mcg/min every 10 minutes. Do not exceed 180 mcg/min. Warning Vesicant/Irritant Medication Per the Vasopressor Administration Policy, [place] 2657: A central line must be placed for the administration of vasopressor infusions lasting longer than 8 hours. Warning Vesicant/Irritant Medication Rate/Dose Change 01/11/2021 4:15 AM EST 10 mcg/min 7.5 mL/hr Rate/Dose Change 01/11/2021 3:51 AM EST 15 mcg/min 11.3 mL /hr Rate/Dose Change 01/11/2021 3:39 AM EST 10 mcg/min 7.5 mL/ hr sodium chloride 0.9 % (flush) flush 5 mL 5 mL, Intravenous, 2 TIMES DAILY, First dose on Fri01/10/21 at 2145, Until Discontinued, Recovery (Recovery-Hospital Unit), Routine Given 01/13/2021 8:43 AM EST 5 mLs Given 01/12/2021 9:01 PM EST 5 mLs Given 01/12/2021 8:52 AM EST 5 mLs sodium chloride 0.9 % (flush) flush 5 mL 5 mL, Intravenous, 2 TIMES DAILY, First dose on Fri01/10/21 at 2345, Until Discontinued, Routine Given 01/13/2021 8:44 AM EST 5 mLs Given 01/12/2021 9:01 PM EST 5 mLs Given 01/11/2021 9:13 PM EST 5 mLs sodium chloride 0.9% infusion 100 mL/hr, Intravenous, CONTINUOUS, Starting on Candi 01/11/21 at 0000, Until Candi 01/11/21 at 0629 New Bag 01/11/2021 12:00 AM EST 100 mL/hr 100 mL/hr sodium chloride 0.9% infusion 100 mL/hr, Intravenous, CONTINUOUS, Starting on Candi 01/11/21 at 0800, Until 01/13/21 at 0703 Rate/Dose Verify 01/13/2021 6:00 AM EST 100 mL/hr 100 mL/hr Rate/Dose Verify 01/13/2021 4:00 AM EST 100 mL/hr 100 mL/ hr Rate/Dose Verify 01/13/2021 2:00 AM EST 100 mL/hr 100 mL/ hr documented in this encounter Active and Recently Administered Medications Times are shown in EST. Scheduled Medication Order 01/11/2021 01/12/2021 01/13/2021 acetaminophen (Tylenol) tablet 975 mg 975 mg, Oral, EVERY 6 HOURS SCHEDULED, First dose (after last modification) on Fri01/12/21 at 1100, Until Discontinued, Maximum dose of acetaminophen is 4000 mg from all sources in 24 hours. When ordered for pain, acetaminophen should be given even when other ordered pain medications are indicated. , Routine 1052 (Given - Provider: Tess Santiago RN)1721 (Given - Provider: Tess Santiago RN)2334 (Given - Provider: Nayan William, FLAVIA) 0620 (Given - Provider: Nayan William, FLAVIA)1117 (Given - Provider: Tess Santiago RN) AMIOdarone (Cordarone; Pacerone) tablet 400 mg 400 mg, Oral, DAILY, First dose (after last modification) on Candi 01/11/21 at 0900, Until Discontinued, Routine 0828 (Given - Provider: Tess Santiago RN)1341 (JAN Hold - Provider: Admin Adt - Reason: Transfer to a Procedural area)1446 (JAN Unhold - Provider: Admin Adt) 0840 (Given - Provider: Tess Santiago RN) 0825 (Given - Provider: Tess Santiago RN) apixaban (Eliquis) tablet 5 mg 5 mg, Oral, 2 TIMES DAILY, First dose on Fri01/12/21 at 2100, Until Discontinued, Anticoagulant, Routine, Restricted anticoagulant, choose the most appropriate response: Continuation of ongoing therapy 2100 (Given - Provider: Nayan William RN) 0826 (Given - Provider: Tess Santiago RN) aspirin chewable tablet 81 mg (CANCELED) 81 mg, Oral, DAILY, First dose on Fri01/11/21 at 0015, Until Discontinued, Routine 0036 (Given - Provider: Citlali Flores RN) aspirin EC tablet 650 mg 650 mg, Oral, 3 TIMES DAILY, First dose (after last modification) on Fri01/11/21 at 2100, Until Discontinued, Routine 2105 (Given - Provider: Nayan William RN) 0840 (Given - Provider: Tess Santiago RN)1437 (Given - Provider: Tess Santiago RN)2059 (Given - Provider: Nayan William RN) 0824 (Given - Provider: Tess Santiago RN)1449 (Given - Provider: Tess Santiago RN) atorvastatin (Lipitor) tablet 20 mg 20 mg, Oral, EVERY EVENING, First dose on Fri01/10/21 at 2345, Until Discontinued, Routine 0035 (Given - Provider: Citlali Flores RN)1341 (JAN Hold - Provider: Admin Adt - Reason: Transfer to a Procedural area)1446 (MAR Unhold - Provider: Admin Adt)1641 (Given - Provider: Gina Carmichael RN) 1722 (Given - Provider: Tess Santiago RN) colchicine (Colcrys) tablet 0.6 mg 0.6 mg, Oral, DAILY, First dose on Fri01/12/21 at 0900, Until Discontinued, Maximum dose: 2.4 mg/24 hours. DO NOT SPLIT, CRUSH OR OPEN, Routine 0840 (Given - Provider: Tess Santiago RN) 0827 (Given - Provider: Tess Santiago RN) colchicine (Colcrys) tablet 1.2 mg (COMPLETED) 1.2 mg, Oral, ONCE, 1 dose, On Fri01/11/21 at 1045, Maximum dose: 2.4 mg/24 hours. DO NOT SPLIT, CRUSH OR OPEN, Routine 1033 (Given - Provider: Tess Santiago RN) heparin (porcine) (5,000 units/1 mL) subcutaneous injection 5,000 Units (CANCELED) 5,000 Units, Subcutaneous, EVERY 8 HOURS SCHEDULED, First dose on Fri01/11/21 at 2200, Until Discontinued, Routine 2106 (Given - Provider: Nayan William RN) 0600 (Not Given - Provider: Nayan William RN - Reason: See comment - Comment: hold per MD)1438 (Given - Provider: Tess Santiago RN) ketorolac (Toradol) (30 mg/mL) injection 30 mg (COMPLETED) 30 mg, Intravenous, ONCE, 1 dose, On Fri01/11/21 at 1500, Routine 1449 (Given - Provider: Gina Carmichael RN) lamoTRIgine (LaMICtal) tablet 100 mg 100 mg, Oral, DAILY, First dose (after last modification) on Fri01/12/21 at 0900, Until Discontinued, Routine 1341 (MAR Hold - Provider: Admin Adt - Reason: Transfer to a Procedural area)1446 (MAR Unhold - Provider: Admin Adt) 0840 (Given - Provider: Tess Santiago RN) 0824 (Given - Provider: Tess Santiago RN) lamoTRIgine (LaMICtal) tablet 200 mg (CANCELED) 200 mg, Oral, DAILY, First dose on Fri01/11/21 at 0900, Until Discontinued, Routine 0828 (Given - Provider: Tess Santiago RN) lidocaine (Lidoderm) 5% topical patch 1 patch (CANCELED) 1 patch, Transdermal, EVERY 24 HOURS, First dose on Fri01/12/21 at 0600, Until Discontinued, Apply patch(es) for 12 hours, and then remove for 12 hours., Routine 0550 (Patch Applied - Provider: Nayan William RN) lidocaine (Lidoderm) 5% topical patch 3 patch(Linked Group 1) 3 patch, Transdermal, EVERY 24 HOURS, First dose (after last modification) on Fri01/12/21 at 0900, Until Discontinued, Apply patch(es) for 12 hours, and then remove for 12 hours., Routine 1052 (Patch Applied - Provider: Tess Santiago RN - Comment: per pharmacist) 0827 (Patch Applied - Provider: Tess Santiago RN) lidocaine (Lidoderm) topical patch REMOVAL(Linked Group 1) Transdermal, EVERY 24 HOURS, First dose (after last modification) on Fri01/12/21 at 2100, Until Discontinued, Remove lidocaine 5% patch 2100 (Patch Removed - Provider: Nayan William RN) magnesium sulfate 2 g in sterile water 50 mL infusion (COMPLETED) 2 g, Intravenous, ONCE, 1 dose, On Fri01/11/21 at 0030, Administer over 120 Minutes 0038 (New Bag - Provider: Citlali Flores RN)0238 (Stopped - Provider: Citlali Flores RN) magnesium sulfate 2 g in sterile water 50 mL infusion (COMPLETED) 2 g, Intravenous, ONCE, 1 dose, On Fri01/11/21 at 0815, Administer over 120 Minutes 0838 (New Bag - Provider: Tess Santiago RN)1038 (Stopped - Provider: Gina Carmichael, FLAVIA) metoprolol tartrate (Lopressor) tablet 12.5 mg 12.5 mg, Oral, EVERY 6 HOURS SCHEDULED, First dose (after last modification) on Fri01/13/21 at 1800, Until Discontinued, Routine metoprolol tartrate (Lopressor) tablet 25 mg (CANCELED) 25 mg, Oral, EVERY 6 HOURS SCHEDULED, First dose on Fri01/13/21 at 0930, Until Discontinued, Routine 0911 (Given - Provider: Tess Santiago RN) morphine (2 mg/mL) injection 1 mg (COMPLETED) 1 mg, Intravenous, ONCE, 1 dose, On Fri01/11/21 at 1615, Routine 1532 (Given - Provider: Gina Carmichael RN) oxyCODONE (Roxicodone) tablet 5 mg (COMPLETED) 5 mg, Oral, ONCE, 1 dose, On Fri01/11/21 at 1715, Routine 1641 (Given - Provider: Gina Carmichael, FLAVIA) oxyCODONE (Roxicodone) tablet 5 mg (COMPLETED) 5 mg, Oral, ONCE, 1 dose, On Fri01/12/21 at 0015, STAT 2348 (Given - Provider: Nayan William, FLAVIA) pantoprazole EC (Protonix) tablet 40 mg 40 mg, Oral, 2 TIMES DAILY, First dose on Fri01/10/21 at 2345, Until Discontinued, DO NOT CRUSH OR OPEN, Routine 0035 (Given - Provider: Citlali Flores RN)0828 (Given - Provider: Tess Santiago RN)1341 (JAN Hold - Provider: Admin Adt - Reason: Transfer to a Procedural area)1446 (JAN Unhold - Provider: Admin Adt)210 (Given - Provider: Nayan William, FLAVIA) 0840 (Given - Provider: Tess Santiago, RN)2100 (Given - Provider: Nayan William RN) 0826 (Given - Provider: Tess Santiago RN) sodium chloride 0.9 % (flush) flush 5 mL 5 mL, Intravenous, 2 TIMES DAILY, First dose on Fri01/10/21 at 2145, Until Discontinued, Recovery (Recovery-Hospital Unit), Routine 0900 (Not Given - Provider: Tess Santiago RN - Reason: See comment - Comment: infusing)2099 (Not Given - Provider: Nayan William RN - Reason: See comment - Comment: line infusing) 0852 (Given - Provider: Tess Santiago RN)210 (Given - Provider: Nayan William, FLVAIA) 0843 (Given - Provider: Tess Santiago RN) sodium chloride 0.9 % (flush) flush 5 mL 5 mL, Intravenous, 2 TIMES DAILY, First dose on Fri01/10/21 at 2345, Until Discontinued, Routine 0900 (Not Given - Provider: Tess Santiago RN - Reason: See comment - Comment: infusing)1341 (JAN Hold - Provider: Admin Adt - Reason: Transfer to a Procedural area)144 (JAN Unhold - Provider: Admin Adt)211 (Given - Provider: Nayan William, FLAVIA) 0900 (Not Given - Provider: Tess Santiago RN - Reason: See comment - Comment: infusing)2100 (Given - Provider: Nayan William RN) 0844 (Given - Provider: Tess Santiago RN) Continuous Medication Order 01/11/2021 01/12/2021 01/13/2021 PHENYLephrine (Sukhi-Synephrine) (80 mcg/mL) in sodium chloride 0.9% 250 mL infusion (CANCELED) 0-180 mcg/min (0-135 mL/hr), Intravenous, CONTINUOUS, Starting on 01/10/21 at 2200, Until 01/13/21 at 0703, Titrate to maintain mean arterial pressure (MAP) greater than 65 mmHg. Start at 50 mcg/min and adjust dose by 25 mcg/min every 10 minutes. Do not exceed 180 mcg/min. Warning Vesicant/Irritant Medication Per the Vasopressor Administration Policy, [place] 2657: A central line must be placed for the administration of vasopressor infusions lasting longer than 8 hours. Warning Vesicant/Irritant Medication 0005 (Rate/Dose Change - Provider: Citlali Flores RN)0020 (Rate/Dose Change - Provider: Citlali Flores RN)0130 (Rate/Dose Change - Provider: Citlali Flores RN)0253 (Rate/Dose Change - Provider: Hanna Claros RN)0323 (Rate/Dose Change - Provider: Hanna Claros RN)0339 (Rate/Dose Change - Provider: Hanna Claros RN)0351 (Rate/Dose Change - Provider: Hanna Claros RN)0415 (Rate/Dose Change - Provider: Hanna Claros RN)0653 (Stopped - Provider: Hanna Claros RN - Comment: MD pope)1341 (JAN Hold - Provider: Admin Adt - Reason: Transfer to a Procedural area)1446 (JAN Unhold - Provider: Admin Adt) sodium chloride 0.9% infusion (CANCELED) 100 mL/hr, Intravenous, CONTINUOUS, Starting on Candi 01/11/21 at 0000, Until Candi 01/11/21 at 0629 0000 (New Bag - Provider: Citlali Flores RN) sodium chloride 0.9% infusion (CANCELED) 100 mL/hr, Intravenous, CONTINUOUS, Starting on Candi 01/11/21 at 0800, Until 01/13/21 at 0703 0827 (New Bag - Provider: Tess Santiago RN)1152 (Paused - Provider: Gina Carmichael, FLAVIA)1222 (Restarted - Provider: Gina Carmichael, FLAVIA)1341 (JAN Hold - Provider: Admin Adt - Reason: Transfer to a Procedural area)1446 (JAN Unhold - Provider: Admin Adt)1500 (New Bag - Provider: Gina Carmichael RN)2000 (Rate/Dose Verify - Provider: Nayan William RN) 0000 (Rate/Dose Verify - Provider: Nayan William RN)0145 (New Bag - Provider: Nayan William RN)0200 (Rate/Dose Verify - Provider: Nayan William RN)0400 (Rate/Dose Verify - Provider: Nayan William RN)0600 (Rate/Dose Verify - Provider: Nayan William RN)1235 (New Bag - Provider: Tess Santiago RN)1500 (Rate/Dose Verify - Provider: Tess Santiago RN)1534 (Rate/Dose Verify - Provider: Tess Santiago RN)2000 (Rate/Dose Verify - Provider: Nayan William RN)2340 (New Bag - Provider: Nayan William RN) 0000 (Rate/Dose Verify - Provider: Nayan William RN)0200 (Rate/Dose Verify - Provider: Nayan William RN)0400 (Rate/Dose Verify - Provider: Nayan William RN)0600 (Rate/Dose Verify - Provider: Nayan William RN)0800 (Stopped - Provider: Tess Santiago RN) PRN Medication Order 01/11/2021 01/12/2021 01/13/2021 acetaminophen (Tylenol) tablet 650 mg (CANCELED) 650 mg, Oral, EVERY 6 HOURS PRN, Starting on Fri01/10/21 at 2329, Until Candi 01/11/21 at 1202, Pain, Maximum dose of acetaminophen is 4000 mg from all sources in 24 hours. When ordered for pain, acetaminophen should be given even when other ordered pain medications are indicated. , Routine 826 (Given - Provider: Tess Santiago RN) acetaminophen (Tylenol) tablet 975 mg (CANCELED) 975 mg, Oral, EVERY 6 HOURS PRN, Starting on Candi 01/11/21 at 1202, Until Fri01/12/21 at 0833, Pain, Maximum dose of acetaminophen is 4000 mg from all sources in 24 hours. When ordered for pain, acetaminophen should be given even when other ordered pain medications are indicated. , Routine 1341 (JAN Hold - Provider: Admin Adt - Reason: Transfer to a Procedural area)1446 (JAN Unhold - Provider: Admin Adt)1516 (Given - Provider: Gina Carmichael RN)2105 (Given - Provider: Nayan William, FLAVIA) 0322 (Given - Provider: Nayan William, FLAVIA) atropine (0.1 mg/mL) injection 1 mg 1 mg, Intravenous, Administer over 4 Hours, EVERY 5 MIN PRN, 2 doses, Starting on Candi 01/11/21 at 1946, Until 01/13/21 at 1737, Other, vasovagal episode, Call interventional MD., Cath (Recovery-Hospital Unit), Routine clonazePAM (KlonoPIN) tablet 1 mg 1 mg, Oral, 2 TIMES DAILY PRN, Starting on Fri01/10/21 at 2329, Until 01/13/21 at 1737, Anxiety, DO NOT SPLIT, CRUSH OR OPEN, Routine 1341 (JAN Hold - Provider: Admin Adt - Reason: Transfer to a Procedural area)1446 ([facility] Unhold - Provider: Admin Adt)210 (Given - Provider: Nayan William, FLAVIA) 0848 (Given - Provider: Tess Santiago RN) fentaNYL (pf) (50 mcg/mL) multi-dose injection (CANCELED) ONCE PRN, Starting on Candi 01/11/21 at 1412, Until Candi 01/11/21 at 1433, Intra-Operative (Intra-Procedure), Routine 1412 (Given - Provider: Jonathon Jimenez RN)1416 (Given - Provider: Jonathon Jimenez RN)1420 (Given - Provider: Elle Sherman RN) HYDROmorphone (Dilaudid) (1 mg/mL) injection syringe 0.4 mg (CANCELED) 0.4 mg, Intravenous, EVERY 4 HOURS PRN, Starting on Candi 01/11/21 at 1727, Until Fri01/12/21 at 0004, Pain, Routine 1749 (Given - Provider: Tess Santiago RN)2214 (Given - Provider: Nayan William RN) HYDROmorphone (Dilaudid) (1 mg/mL) injection syringe 0.4 mg 0.4 mg, Intravenous, EVERY 2 HOURS PRN, Starting on Fri01/12/21 at 0022, Until 01/13/21 at 1737, Pain, Routine 0100 (Given - Provider: Nayan William RN)0323 (Given - Provider: Nayan William RN)0521 (Given - Provider: Nayan William, RN)1014 (Given - Provider: Tess Santiago RN)2101 (Given - Provider: Nayan William RN) lidocaine (Xylocaine) 1% (10 mg/mL) injection 3 mg 3 mg (0.3 mL), Subcutaneous, ONCE PRN, 1 dose, Starting on 01/10/21 at 2123, Until 01/13/21 at 1737, for discomfort with PIV insertion, Recovery (Recovery-Hospital Unit), Routine lidocaine (Xylocaine) 1% (10 mg/mL) injection (CANCELED) ONCE PRN, Starting on Candi 01/11/21 at 1401, Until Candi 01/11/21 at 1433, Cath (Intra-Procedure), Routine 1401 (Given - Provider: Rachana Silver, DO - Comment: Left lateral chest wall) loperamide (Imodium A-D) capsule 4 mg 4 mg, Oral, 4 TIMES DAILY PRN, Starting on 01/13/21 at 1244, Until 01/13/21 at 1737, Diarrhea, Do not exceed 16 mg/day., Routine 1341 (Given - Provider: Tess Santiago RN) midazolam (pf) (Versed) (1 mg/mL) injection 1 mg 1 mg, Intravenous, Administer over 4 Hours, EVERY 1 HOUR PRN, 2 doses, Starting on Candi 01/11/21 at 1946, Until 01/13/21 at 1737, For sheath removal, May repeat once while in Cath Recovery Unit., Cath (Recovery-Hospital Unit), Routine midazolam (pf) (Versed) (1 mg/mL) multi-dose injection (CANCELED) ONCE PRN, Starting on Candi 01/11/21 at 1401, Until Candi 01/11/21 at 1433, Cath (Intra-Procedure), Routine 1401 (Given - Provider: Jonathon Jimenez RN)1416 (Given - Provider: Jonathon Jimenez, RN)1421 (Given - Provider: Jonathon Jimenez RN) nitroGLYcerin (Nitrostat) disintegrating tablet 0.4 mg 0.4 mg, Sublingual, EVERY 5 MIN PRN, Starting on Fri01/10/21 at 2329, Until 01/13/21 at 1737, Chest pain, May repeat every 5 minutes for a total of three doses. Notify provider if chest pain not relieved with nitroglycerin. Do not administer nitroglycerin if the patient has received or taken phosphodiesterase (PDE-5) inhibitors such as sildenafil, tadalafil or vardenafil within the last 24 to 72 hours., Routine 1341 (JAN Hold - Provider: Admin Adt - Reason: Transfer to a Procedural area)1446 ([facility] Unhold - Provider: Admin Adt) sodium chloride 0.9 % (flush) flush 5-20 mL 5-20 mL, Intravenous, EVERY 1 MIN PRN, Starting on Fri01/10/21 at 2123, Until 01/13/21 at 1737, flush, Flush pertains to all indwelling lines. Flush per protocol found in the job aid using the link provided on this medication record., Recovery (Recovery-Hospital Unit), Routine sodium chloride 0.9 % (flush) flush 5-20 mL 5-20 mL, Intravenous, EVERY 1 MIN PRN, Starting on Fri01/10/21 at 2329, Until 01/13/21 at 1737, flush, Flush pertains to all indwelling lines. Flush per protocol found in the job aid using the link provided on this medication record., Routine 1341 (JAN Hold - Provider: Admin Adt - Reason: Transfer to a Procedural area)1446 ([facility] Unhold - Provider: Admin Adt) Linked Groups Order Group 1: lidocaine (Lidoderm) 5% topical patch 3 patchJump to med 3 patch, Transdermal, EVERY 24 HOURS, First dose (after last modification) on Fri01/12/21 at 0900, Until Discontinued, Apply patch(es) for 12 hours, and then remove for 12 hours., Routine And lidocaine (Lidoderm) topical patch REMOVALJump to med Transdermal, EVERY 24 HOURS, First dose (after last modification) on Fri01/12/21 at 2100, Until Discontinued, Remove lidocaine 5% patch documented in this encounter Care Teams 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
--- OUTSIDE RECORDS SUMMARY | 2024-06-04 20:45 | XMS_ITS | Encounter Summary ---
Author Organization [facility] [place] [address] Care Team Providers Care Employee Relations Administrator Name Role Phone Bin Bowman MD Primary Care Provider Reason for Visit * Auth/Cert Specialty Diagnoses / Procedures Referred By Zeyad mishra Referred To Contact Diagnoses SVT (supraventricular tachycardia) [I47.1], PAF (paroxysmal atrial fibrillation) [I48.0] Procedures ELECTROPHYSIOLOGY PROCEDURE TRANSESOPHAGEAL ECHO DURING CATH/EP PROCEDURE Referral ID Status Reason Start Date Expiration Date Visits Re quested Visits Authorized [id number] 1 1 Encounter Details Date Type Department Care Team (Latest Contact Info) Description 01/11/2021 5:20 AM EST - 01/11/2021 11:59 PM EST Hospital Encounter Non[place] [phone] Discharge Disposition: Home Social History Tobacco Use [...] g 1 12/19/2020 lisinopriL (Prinivil;Zestril) 2.5 mg TabletIndications:Esse ntial hypertension Take 1 tablet by mouth daily. [...] needed for Pain. 10 tablet 01/13/2021 02/14/2021 AMIOdarone (PACERONE) 400 mg Tablet Take one tablet by mouth three times daily x 5 days, then one tablet by mouth daily x 7 days, then 0.5 mg tablet daily thereafter 60 tablet 12/19/2020 01/13/2021 apixaban (Eliquis) 5 mg Tablet Take 1 [...] times daily. 180 tablet 3 03/25/2019 03/19/2021 lamoTRIgine (LAMICTAL) 200 mg Tablet Take 1 tablet by mouth daily. 30 tablet 3 07/16/2017 01/13/2021 documented as of this encounter Plan of Treatment Upcoming Encounters Date Type Department Care Team (Latest Contact Info) Description 06/07/2024 2:00 PM EDT Office [place] [phone] Joan Castro MD [facility] [place] [address] 06/11/2024 1:03 PM EDT Hospital Encounter [place] [phone] Rachel Carrasco MD [facility] [place] [phone] 06/11/2024 1:03 PM EDT - 06/11/2024 1:58 PM EDT Surgery [place] [phone] Rachel Carrasco MD [facility] [place] [address] CYSTO, REMOVAL OF STENT, FOREIGN BODY OR CALCULUS, SIMPLE (WRVU 2.81) 06/23/2024 10:00 AM EDT Office Visit Cardiology at [address] [place] [phone] Mo Horne MD [facility] [place] [address] Scheduled Procedures Name Priority Associated Diagnoses Date/Ti me CYSTO, REMOVAL OF STENT, FOR EIGN BODY OR CALCULUS, SIMPLE (WRVU 2.81) NEPHROLITHIASIS 06/11/2024 1:03 PM EDT documented as of this encounter Procedures Procedure Name Priority Date/Time Associated Diagnosis Comments ECHO COMPLETE W CONTRAST Routine 01/11/2021 10:21 AM EST SVT (supraventricular tachycardia) documented in this encounter Visit Diagnoses Not on filedocumented in this encounter Administered Medications Inactive Administered Medications - up to 3 most recent administrations Medication Order MAR Action Action Date Dose Rate Site perflutren protein-A microsphers (Optison) (0.22 mg/mL) injection 0.5 mL 0.5 mL, Intravenous, ONCE PRN, 1 dose, Starting on Candi 3 at 1021, Until Candi 01/11/21 at 1021, for enhancement of sub-optimal echo images, Echo Lab (Intra-Procedure), Routine Given 01/11/2021 10:21 AM EST 0.5 mLs documented in this encounter Care Teams Employee Relations Administrator Relationship Specialty Start Date End Date Bin Bowman MD [address] [place] [id number] PCP - General General Internal Medicine 04/21/1707/11 documented as of this encounter
--- OUTSIDE RECORDS SUMMARY | 2024-06-04 20:45 | XMS_ITS | Encounter Summary ---
Author Organization [facility] [place] [address] Care Team Providers Care Farm Field Manager Name Role Phone Bin Bowman MD Primary Care Provider [phone] Reason for Visit * Auth/Cert Specialty Diagnoses / Procedures Referred By Zeyad mishra Referred To Contact Diagnoses SVT (supraventricular tachycardia) [I47.1], PAF (paroxysmal atrial fibrillation) [I48.0] Procedures ELECTROPHYSIOLOGY PROCEDURE TRANSESOPHAGEAL ECHO DURING CATH/EP PROCEDURE Referral ID Status Reason Start Date Expiration Date Visits Re quested Visits Authorized [id number] 1 1 Encounter Details Date Type Department Care Team (Late st Contact Info) Description 01/11/2021 2:18 PM EST - 01/11/2021 3:18 PM EST Surgery [place] [address] Erich Amato MD [facility] [place] [address] CARDIAC CATHETERIZATION Social History Tobacco Use Types Packs/Day Years [...] Sign Reading Time Taken Comments Blood Pressure 159/108 01/11/2021 2:46 PM EST Pulse 102 01/11/2021 3:10 PM EST Temperature 36.4 ??C (97.5 ??F) 01/11/2021 1 0:02 AM EST Respiratory Rate 16 01/11/2021 3:10 PM EST Oxygen Saturation 94% 01/11/2021 3:10 PM EST Inhaled Oxygen Concentration - - Weight 196.6 kg (433 lb 6.8 oz) 01/11/2021 6:30 AM EST Height 167.6 cm (5' 6) 01/10/2021 10:0 6 AM EST Body Mass Index 70.35 01/12/2021 [...] in LCX in 2017), GERD, ??anxiety, bipolar disorder admitted s/p ablation [...] a 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 He was awakened from anesthesia, extubated and [...] MV E-wave Vmax 0.94 m/sec MV deceleration ccff134.49 msec MV A-wave Vmax 0.66 m/sec MV [...] Normal Mid-Posterolateral Normal Mid-Inferior Normal Mid-Inferoseptal Normal [place]-Septal Normal [place]-Anterior Normal [place]-Lateral Normal [place]-Inferior Normal [place]-Tip Normal TTE 01/12/21 1. A trivial pericardial [...] MV E-wave Vmax 0.52 m/sec MV deceleration jiva111.21 msec MV A-wave Vmax 0.41 m/sec MV [...] Normal Mid-Posterolateral Normal Mid-Inferior Normal Mid-Inferoseptal Normal [place]-Septal Normal [place]-Anterior Normal [place]-Lateral Normal [place]-Inferior Normal [place]-Tip Normal Pericardiocentesis 01/11/21 Conclusions: * Successful placement [...] 4:20 PM Jayne Rogel APRN Cardiology at [facility] Arrive at: Investor Area [phone] 02/05/2021 2:15 PM Mary Daley PA Cardiology at [facility] Arrive at: Investor Area [phone] General Instructions DISCHARGE INSTRUCTIONS FOLLOWING YOUR ABLATION [...] of any new medications initiated at the [facility]. The patient should be aware and informed [...] or the Cardiac Electrophysiology Service Triage Nurse ([phone], option 3). Patient Instructions Patient Instructions on [...] Center 01/17/2021 4:20 PM Jayne Rogel APRN [facility] CARD 4A [facility] 02/05/2021 2:15 PM Mary Daley PA [facility] CARD 4A [facility] PCP: Bin Bowman MD @ [phone] Pinsetter Mechanic Automatic: Will be assigned at the next cardiology appt Your Inpatient Medical Team at [facility] Name(s) of your inpatient provider(s): Jose Anand MD- Attending physician Tohr Wills MD- Engineering Technologist Harini Jansen MD-Resident Physician Chavo Dominguez MD- Digital Experience Manager Physician Call your doctor if: Chest pain, shortness of breath, pain or swelling in legs occurs. If you have non-emergent questions between now and the time of your follow up appointments: During 8am-5pm Friday through Friday call [phone] to speak with a nurse in the cardiology clinic All other times call [phone] and ask to speak to the pencil maker union organizer. For questions regarding this document or issues relating to this hospitalization on the Medical Service, please contact your inpatient physician through the [facility] Engineering Tech . Issues afterhours and on weekends will be handled by the Pinsetter Mechanic Automatic staff on-call. documented in this encounter Discharge Instructions * Discharge Instructions* Maria M Hercules, PRODUCTION CHECKER - 01/12/2021 4:04 PM EST DISCHARGE INSTRUCTIONS [...] of any new medications initiated at the [facility]. The patient should be aware and informed [...] or the Cardiac Electrophysiology Service Triage Nurse ([phone], option 3). * Patient Instructions* Harini Jansen [...] Center 01/17/2021 4:20 PM Jayne Rogel APRN [facility] CARD 4A [facility] 02/05/2021 2:15 PM Mary Daley PA [facility] 4A [facility] PCP: Bin Bowman MD @ [phone] Pinsetter Mechanic Automatic: Will be assigned at the next cardiology appt Your Inpatient Medical Team at [facility] Name(s) of your inpatient provider(s): Jose Anand MD- Attending physician Thor Wills MD- Engineering Technologist Harini Jansen MD-Resident Physician Chavo Dominguez MD- Digital Experience Manager Physician Call your doctor if: Chest pain, shortness of breath, pain or swelling in legs occurs. If you have non-emergent questions between now and the time of your follow up appointments: During 8am-5pm Friday through Friday call [phone] to speak with a nurse in the cardiology clinic All other times call [phone] and ask to speak to the pencil maker union organizer. documented in this encounter Medications at Time [...] met Total Minutes, Physical Therapy: 20 NAYAN GUERRERO PT Pager: [phone] Physical Therapy Inpatient Rehabilitation Department * Tess [...] IVs and tele removed. Pt brought to [facility] in wheelchair by staff with belongings. * [...] per Dr. Jansen. Jose Anand MD, MPH, VI, [facility] Pager [phone] Cardiovascular Regenerator OperatorTwisting [place] [address] * Mahogany Ferreira OT - 01/13/2021 12:16 PM EST Occupational Therapy Note 01/13/21 1214 OT Time and Intention Document Type contact Total Minutes, Occupational Therapy 0 Comment, Session Not Performed Order received. Chart reviewed. Spoke with both RN and PT. No acute OT needs. Pt mobilizing independently/supervised, and managing own ADLs. Will sign off. Mahogany Ferreira OTR Pager [phone] * Nilsa Goldstein MD - 01/13/2021 10:45 AM EST Inpatient Cardiology Progress Note Patient Name: Rolo Aguilar Responsible Attending: Jose Anand MD EP Attending: Nilsa Goldstein MD Reason for continued hospitalization: Evaluation and management of pericardial effusion post ablation Active Problems: Active Hospital Problems Diagnosis ??? SVT (supraventricular tachycardia) Added automatically from request for surgery [id number] ??? PAF (paroxysmal atrial fibrillation) Added automatically from request for surgery [id number] ??? H/O cardiac radiofrequency ablation Resolved Hospital [...] HR: SR 70-100 with intermittent SVT/ atrial parqwmzxmyj910-126 bpm. Meds: Scheduled Meds: ??? metoprolol tartrate [...] noted. Neuro- A&Ox3 Lab Comments: Recent Labs 01/13/2152901/12/21 0819 01/11/21 0740 WBC 11.5* 19.3* 13.2* HGB 11.4* 12.5* 13.7 HCT 35.1* 38.9* 42.2 PLATELET 122* 179 224 Recent Labs 01/10/21 2155 INR 1.4 Recent Labs 01/13/2152901/12/21 0355 01/11/21 0740 NA 135 135 134* [...] 1 month after Zio. Maria M Hercules, PRODUCTION CHECKER 01/13/2021 Pager: [phone] Addendum Stable, overall condition appears to have improved Likely ready for discharge soon with outpatient follow up NILSA GOLDSTEIN MD * Tess Santigao RN - 01/12/2021 6:56 PM EST Patient's [...] for repeat echo tomorrow. Plan to restart eliquis tonight. * Fadi Escobar MD - 01/12/2021 2:48 PM EST Images from the original note were not included. Cardiac Electrophysiology Progress Note Problem List: Patient Active Problem List Diagnosis ??? ','SVT (supraventricular tachycardia) Overview Note: Added automatically from request for surgery [id number] ??? Bipolar disorder ??? PAF (paroxysmal atrial fibrillation) Overview Note: Added automatically from request for surgery [id number] ??? Flutter-fibrillation ??? H/O cardiac radiofrequency ablation ??? Coronary disease Overview Note: ?? 2017: STEMI. PCI of OM1. EF 60%. Many ER visits to [facility] after this. ??? Heart palpitations ??? [...] EKG - sinus rhythm rate 96 bpm. SD 154ms, QRS 94ms, QT 354 ms, QTc [...] 01/10/21. He takes apixaban for anticoagulation. Mr. Isaac is improving post pericardiocentesis, with pericardial drain [...] Dr. Escobar for results. Maria M Hercules, PRODUCTION CHECKER 01/12/2021 Pager: [phone] Cardiac Electrophysiology Attending This patient was seen and evaluated by me several times throughout the day today. He did not sleep well last night again due to positional chest discomfort, but he finally slept this morning (prior to the chest tube removal) and a good part of this afternoon. After an initial [address] cinthia yesterday afternoon, there has been no more [...] and plan incorporate my input. * Macey Alarcon PT - 01/12/2021 1:20 PM EST Physical [...] (WRVU 11.47) performed by Colt Hewitt MD [facility] MAIN OR ??? PRO UNLISTED LAPAROSCOPIC PX LVR N/A 07/21/2018 LAPAROSCOPIC LIVER BIOPSY (WRVU 16.52) performed by Colt Hewitt MD at [facility] MAIN OR ??? PRO UPPER GI ENDOSCOPY, BIOPSY N/A 12/29/2017 UPPER GASTROINTESTINAL ENDOSCOPY,WITH BIOPSY SINGLE OR MULTIPLE (WRVU 2.49) performed by Yusuf Tucker MD at [facility] ENDOSCOPY ??? PRO UPPER GI ENDOSCOPY, DIAGNOSTIC N/A 12/29/2017 EGD, UPPER GI ENDOSCOPY performed by Yusuf Tucker MD at [facility] ENDOSCOPY ??? TONSILLECTOMY Active Non-Hospital Problems Diagnosis ??? Bipolar disorder ??? Flutter-fibrillation ??? Coronary disease ??? Heart palpitations ??? Obesity ??? Essential hypertension Social History: Pt resides with and mother in a house with 5 stairs to enter with L sided railing. Pt has a flt to basement where he resides with L sided railing. 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 Precautions/Special Considerations: Fall risk, lobato,chest tube,PIV,significant pain [...] Objective: Pt seen for evaluation today. Pain- 10/10 pain chest (secondary to pericardiocentesis, pericardial drain) [...] mobility recommendations discussed with nursing. Assessment: Rolo Rodney Isaac was seen today for physical therapy evaluation. [...] Physical Therapy: 40 Macey Alarcon, PT Pager: [phone] Physical Therapy Inpatient Rehabilitation Department * Mark [...] to return later. Will continue to follow. CARMELO Souza/L Pager: [phone] * Jose Anand MD - 01/12/2021 7:00 [...] 253 Recent Labs 01/12/21 0355 01/11/21 0740 01/10/212154 NA 135 134* 138 K 5.0 4.9 4.3 CL 104 104 107 CO2 22 19* 18* BUN 18 15 15 CREATININE 0.91 0.86 0.89 Recent Labs 01/11/21 0640 01/10/212154 AST 47* 46* ALT 40 40 ALKPHOS 47 51 BILITOT 0.4 0.5 BILIDIR 0.1 0.2 Recent Labs 01/12/21 0355 01/11/21 0740 01/10/212154 CALCIUM 8.2* 8.1* 8.1* MAGNESIUM -- -- 0.63* Recent Labs 01/10/212154 INR 1.4 PT 15.6* PTT 66* Recent [...] S2 01/12/2021 CARDIOLOGY ATTENDING NOTE Patient: Rolo Aguilar Date of Service: 01/12/2021 Date of Admission: [...] PRN opioids. Rest per Dr. Dominguez. Jose Annad MD, MPH, RPVI, FACC Pager [phone] Cardiovascular Regenerator OperatorTwisting [place] [address] * Nayan William RN - 01/12/2021 6:15 AM EST Loss of arterial line overnight. MD notified. Line d/c'd by FLAVIA Gregory, pressure held by this commercial loan underwriter. Non-invasive BP remains WNL. Pain and SOB [...] that he had been found to havea tfacx-wp-hvihfisi size pericardial effusion on echocardiogram during the [...] examined this patient and discussed with the senior insight manager international, resident, fellow. I have personally reviewed the echocardiogram (initial and repeat) and discussed with Fadi Escobar from EP. While no clear evidence of tamponade, we will tap and leave drain in for fluid. Hold anticoagulation fornow. Judy Tijerina MD, Robinson, [facility] Cardiology Attending ID: Rolo Aguilar is a [...] lb 3.2 oz) Labs Recent Labs 01/10/21 215 WBC 16.1* HGB 13.5* HCT 41.1 PLATELET 253 Recent Labs 01/10/21 2155 NA 138 K 4.3 CL 107 CO2 18* BUN 15 CREATININE 0.89 Recent Labs 01/10/21 215 AST 46* ALT 40 ALKPHOS 51 BILITOT 0.5 BILIDIR 0.2 Recent Labs 01/10/21 215 CALCIUM 8.1* MAGNESIUM 0.63* Recent Labs 01/10/21 215 INR 1.4 PT 15.6* PTT 66* Recent [...] of hematoma. Echo completed. Pt NPO per /RN discussion. Will continue to monitor. PLAN MOVING [...] PM EST 1912: Rolo Aguilar arrives from on bed to PACU 11. Placed patient [...] for patient. Plans for possible bedside echo. 5: Cardiology fellows at bedside assessing patient, discussing plan of care, and placing orders.Plans for upgraded room to ICU in available unit. 2330: Resident at bedside discussing plan with patient and placing orders. Plans for stepdown room. 01/11/2021: 0220: Verbal report [facility] nurseJami. Plans for transport per protocol on monitor withnurse assist. documented in this encounter H&P Notes * Judy Tijerina MD - 01/10/2021 9:24 PM EST Cardiology Admission History and Physical Patient Name: Rolo Aguilar Service: S1 Team Responsible Attending: Rayo Bianchi MD PCP: Bin Bowman MD PCP phone #: [phone] ID/Chief Complaint: Rolo Aguilar is a 50 y.o. man old pleasant morbidly obese gentleman with PMH of atrial flutter(on apixaban) and SVT, CAD(s/p PCI with EMMY x 1 in LCX in 2017), GERD, anxiety,bipolar disorder who is transferred from [...] a 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 He was awakened from anesthesia, extubated and [...] ventricular segmental wall motion abnormalities present at [facility] inferolateral wall, as coded in the [...] tachycardia) Added automatically from request for surgery [id number] ??? Bipolar disorder ??? PAF (paroxysmal atrial fibrillation) Added automatically from request for surgery [id number] ??? Flutter-fibrillation ??? H/O cardiac radiofrequency ablation ??? Coronary disease ?? 2017: STEMI. PCI of OM1. EF 60%. Many ER visits to [facility] after this. ??? Heart palpitations ??? [...] PHOS -- 3.0 -- LFT's: Recent Labs 01/10/21215412/17/20310 BILITOT 0.5 0.5 BILIDIR 0.2 0.2 ALBUMIN 3.3 3.7 ALKPHOS 51 66 ALT 40 29 AST 46* 18 Coags: Recent Labs 01/10/212154 PT 15.6* INR 1.4 PTT 66* Endocrine: Recent Labs 12/17/20310 TSH 2.75 Microbiology: None Diagnostic Studies: EKG- [...] PLAN: Admit to Cardiology, M1S1 Team Pager #[phone] #Post-Procedural Hypotension #Atrial Flutter s/p ablation #Hx [...] Diet - Code Status: Full - Dispo: CVCC Ernie Thrasher MD Internal Medicine PGY-2 I have seen and examined this patient and discussed with the senior insight manager international, resident, fellow. Judy Tijerina MD, Robinson, [facility] Cardiology Attending * Fadi Escobar MD - 01/10/2021 10:24 AM EST Interval History and Physical Exam: Planned Procedure [facility] CARDIAC ELECTROPHYSIOLOGY LABORATORIES HISTORY OF PRESENT ILLNESS: [...] (WRVU 11.47) performed by Colt Hewitt MD [facility] MAIN OR ??? PRO UNLISTED LAPAROSCOPIC PX LVR N/A 07/21/2018 LAPAROSCOPIC LIVER BIOPSY (WRVU 16.52) performed by Colt Hewitt MD at [facility] MAIN OR ??? PRO UPPER GI ENDOSCOPY, BIOPSY N/A 12/29/2017 UPPER GASTROINTESTINAL ENDOSCOPY,WITH BIOPSY SINGLE OR MULTIPLE (WRVU 2.49) performed by Yusuf Tucker MD at [facility] ENDOSCOPY ??? PRO UPPER GI ENDOSCOPY, DIAGNOSTIC N/A 12/29/2017 EGD, UPPER GI ENDOSCOPY performed by Yusuf Tcuker MD at [facility] ENDOSCOPY ??? TONSILLECTOMY Accessory Clinical Findings: Laboratory [...] Procedure Note: Patient Name: Rolo Aguilar : [id number] MR#: [id number] Case Date: 01/11/2021 Engineering Tech: Surgeon(s) and Role: * Erich Amato MD - Primary * Rachana Silver DO - Fellow Preoperative diagnosis: Pericardial drain placement Postoperative diagnosis: * Pre-tamponade * Procedure(s) performed: Pericardiocentesis Pericardial drain placement Access: Apical chest wall, just below the left breast; six mauritanian pigtail. A time-out was conducted prior to [...] spouse would be surrogate decision maker per [place] surrogate decision making law. (Only good for 90 days) Any patient receiving care at [facility] must abide by [place] law. The hierarchy for surrogate decision making [...] (i) The agent with financial power of assistant city attorney or a conservator appointed in accordance with RSA 464-A. (j) The guardian of the patient???s estate. Current Functional Ability: Current Functional Status: Independent Functional Status Prior to Admission: Prior Functional Status: Independent Home Environment: People in Home: spouse. Living Arrangements: house. Current DME: None DME Needed at DC: None Home Address Listed as: [address] [place] [address] Social & Family Supports: Extended Emergency Contact Information Primary Emergency Contact: Autumn Aguilar Address: [address] [place] [id number] [place] [address] Mobile Relation: Spouse Secondary Emergency Contact: TadeoWhitney Address: [address] [place] [address] [facility] Relation: Sibling Community Resources being provided [...] Insurance: N/A Prescription Coverage: yes Preferred Pharmacy: [id number] [place] - [address] [place] [address] [facility] - [place], [place] - [address] [facility] [address] [facility] - [place] [address] [facility] [address] [id number] - [place], [place] - [address] [facility] [address] [facility] [address] Primary Care Provider: Bin Bowman MD [phone] Patient/Caregiver Goals of Treatment: DC home Potential Needs for Transition of Care: [...] assist with transition of care planning. Chanell Fatima RN, MSN, family resource management professor Office of Care Management Pager: [phone] Work * Brief Op Note - Fadi Escobar MD - 01/10/2021 7:27 PM EST Brief Operative Note Patient Name: Rolo Aguilar : [id number] MR#: [id number] Case Date: 01/10/2021 Surgeon: Surgeon(s) and Role: [...] were issues with initial functionality of the Pipit Interactive data acquisiton system, the EP-4 stimulator, and the lateral Apmetrix fluoroscopic camera. Reconfigurations, engaging with technical support, [...] rate of 2500 units/hour. The short 8 Khmer sheaths in the right femoral vein were [...] of 1110 milliseconds (ms) were as follows: SD: 180 ms (P wave duration 140 ms) QRS: 100 ms QT: 480 ms 2) Atrial overdrive pacing was accomplished from the proximal-most bipole in the coronary sinus (CS), and the atrioventricular (AV) Wenckebach block CL was observed at 410 ms. There was no pre-excitation or conduction aberrancy identified. 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 Left Atrial Anatomy and Mapping: A [employer] ThermoCool SF 8 Fr ablation catheter with [...] [place] a [place] [address] Joules during minutes:seconds of actual ablation time, [...] (and/or limitations of familiarity) with the recently installedClValidic mapping system. Mitral Annular Flutter Induction, Mapping, [...] Dose: 681 mGy Total Radiofrequency Energy Delivered: [id number] Joules Total Actual Ablation Time: 50:31 m:s [...] revealed that he had developed a s edru-dd-mlljoxuo effusion with restricted filling (though not overt right atrial collapse). A pericardiocentesis subsequently was performed with a 300 cc of bloody fluid removed (please see separte report by Erich Amato MD), and the blood pressure reverted to baseline values; a 6 Khmer pericardial drain was placed, but there was no significant fluid reaccumulation. documented in this encounter Plan of Treatment Upcoming Encounters Date Type Department Care Team (Latest Contact Info) Description 06/07/2024 2:00 PM EDT Office Visit [place] [address] Joan Castro MD [facility] [address] 06/11/2024 1:03 PM EDT Hospital Encounter Main Operating Room [place] [phone] Rachel Carrasco MD [facility] [place] [address] 06/11/2024 1:03 PM EDT - 06/11/2024 1:58 PM EDT Surgery Main Operating Room [place] [phone] Rachel Carrasco MD [facility] [place] [address] CYSTO, REMOVAL OF STENT, FOREIGN BODY OR CALCULUS, SIMPLE (WRVU 2.81) 06/23/2024 10:00 AM EDT Office Visit Cardiology at [address] [address] Nilsa Goldstein MD [facility] [address] Pending Results Name Type Priority Associated Diagnoses [...] EST LACTATE, WHOLE BLOOD, SEND TO LAB ([facility]) STAT 01/11/2021 2:05 AM [...] 01/10/2021 4:20 PM EST RAPID COVID-19 PCR ([facility]) Routine 01/10/2021 12:32 PM EST documented in this encounter Results * ECHO COMPLETE (01/13/2021 11:03 AM EST) Anatomical Region Laterality Modality Other 01/13/2021 Narrative 01/13/2021 11:38 AM EST Procedure: ?Transthoracic Echocardiogram Patient: ?ISAAC Rodney ?(Age): 1970(50y) Med Rec#: ? [id number] ?Sex: ?M ? Site Loc: ? [facility] ?Ht / Wt: ??168(cm)/198(kg) Pt. Loc: ?Adult Floor ? BSA: ?2.79 Study Date: ?? 01/13/2021 ?Pt. Type: Inpatient Tape: ? Referring: Jose Anand ??([id number]) Reading: Joss De Anda ([id number]) Capacitor Assembler: Shahriar Juan RDCS, L[place] Diagnosis: *Pericardial effusion [...] Vmax ?0.94 ? m/sec ? MV deceleration tjtv351.49 ? msec ? MV A-wave Vmax ?0.66 [...] ? Mid-Inferior ?Normal ? Mid-Inferoseptal ?Normal ? [place]-Septal ? Normal ? [place]-Anterior ? Normal ? [place]-Lateral ?Normal ? [place]-Inferior ? Normal ? [place]-Tip ?Normal ? This report has been electronically signed by: Joss De Anda MD ? 01/13/2021 11:37:34 Images reviewed and interpretation verified [facility] Procedure Note Joss De Anda MD - 01/13/2021 Procedure: Transthoracic Echocardiogram Patient: ISAAC Rodney (Age): 1970(50y) Med Rec#: [id number] Sex: M Site Loc: [facility] Ht / Wt: 168(cm)/198(kg) Pt. Loc: Adult Floor BSA: 2.79 Study Date: 01/13/2021 Pt. Type: Inpatient Tape: Referring: Jose Anand ([id number]) Reading: Joss De Anda ([id number]) Capacitor Assembler: Shahriar Juan RDCS, FASE Diagnosis: *Pericardial effusion [...] MV E-wave Vmax 0.94 m/sec MV deceleration lvtv551.49 msec MV A-wave Vmax 0.66 m/sec MV [...] Normal Mid-Posterolateral Normal Mid-Inferior Normal Mid-Inferoseptal Normal [place]-Septal Normal [place]-Anterior Normal [place]-Lateral Normal [place]-Inferior Normal [place]-Tip Normal This report has been electronically signed by: Joss De Anda MD 01/13/2021 11:37:34 Images reviewed and interpretation verified [facility] Jose Anand MD ECHO ORDERABLES * EKG 12 Lead (01/13/2021 8:06 AM EST) Ventricular rate 141 BPM MUSE SYSTEM Atrial Rate 141 BPM MUSE SYSTEM P-R Interval 146 ms MUSE SYSTEM QRS Duration 94 ms MUSE SYSTEM Q-T Interval 266 ms MUSE SYSTEM QTC Calculated (Bezet) 407 ms MUSE SYSTEM Calculated P [place] 55 degrees MUSE SYSTEM Calculated R [place] 28 degrees MUSE SYSTEM Calculated T [place] 54 degrees MUSE SYSTEM INTERPRETATION Sinus tachycardia Low voltage QRS Possible Inferior infarct (cited on or before 13-JAN-2021) Abnormal ECG When compared with ECG of 12-JAN-2021 00:07, Diffuse ST-elevations have resolved, and there are now diffuse TWI, consistent with resolving pericarditis Confirmed by MD De Anda Daniel ([id number]) on 01/13/2021 12:29:23 PM MUSE SYSTEM 01/13/2021 8:06 AM EST 01/13/2021 12:29 PM EST Jose Anand MD ECG ORDERABLES MUSE SYSTEM * (ABNORMAL) Differential, Automated (01/13/2021 5:30 AM EST) Neutrophils % 71.0 % [facility] Neutr Abs (ANC) 8.18(H) 1.70 - 6.10 x10(3)/[facility] Lymphocytes % 16.6 % [facility] Lymphocytes Abs 1.9 0.9 - 3.2 x10(3)/[facility]OR[facility] Monocytes % 10.7 % [facility] Monocyte Abs 1.2(H) 0.3 - 0.9 x10(3)/[facility] Eosinophils % 0.5 % [facility] Eosinophils Abs 0.1 0.0 - 0.4 x10(3)/[facility] Basophils % 0.3 % [facility] Basophils Abs 0.0 0.0 - 0.1 x10(3)/[facility] Immature Gran % 0.90 % [facility] Comment: Immature granulocytes(IG's)percentage and absolute count will include metamyelocytes, myelocytes, and promyelocytes. Blood smears from CBCs yielding IG's will be scanned manually for concordance. If this scan disagrees with the automated IG or if promyelocytes are noted, a manual differential will be performed. Amy Gran Abs 0.10(H) 0.00 - 0.04 x10(3)/[facility] LABORATORY Blood specimen (specimen) 01/13/2021 5:30 AM EST 01/13/2021 5:44 AM EST Narrative Resulting Agency Comment Spec In Lab Harini Jansen MD HEMATOLOGY ORDERABLE S [facility] [place] [address] * (ABNORMAL) Hemogram (01/13/2021 5:30 AM EST) WBC 11.5(H) 4.0 - 9.5 x10(3)/[facility] LABORATORY RBC 4.11(L) 4.58 - 5.54 x10(6)/[facility] Hemoglobin 11.4(L) 13.7 - 16.5 gm/dL [facility] Hematocrit 35.1(L) 40.5 - 48.5 % [facility] MCV 85.4 82.9 - 93.1 fL [facility] MCH 27.7 27.5 - 32.1 pg [facility] MCHC 32.5 32.0 - 35.7 gm/dL [facility] Platelets 122(L) 145 - 357 x10(3)/[facility]ORAT[facility] RDWSD 44.7 36.0 - 45.0 [facility]ORY RDWCV 14.6(H) 11.4 - 13.8 % [facility] MPV 10.6 7.6 - 12.9 [facility] nRBC % Auto 0.0 % [facility] nRBC Abs Auto 0.000 0.000 - 0.000 x10(3)/[facility] Blood specimen (specimen) 01/13/2021 5:30 AM EST 01/13/2021 5:44 AM EST Narrative Resulting Agency Comment Spec In Lab Harini Jansen MD HEMATOLOGY ORDERABLE S Performing Organization Address City/[facility]/ZIP Co de Phone Number [facility] [place] [address] * Magnesium (01/13/2021 5:30 AM EST) Magnesium 0.92 0.69 - 1.07 mmol/L [facility] Blood specimen (specimen) 01/13/2021 5:30 AM EST 01/13/2021 5:45 AM EST Narrative Resulting Agency Comment Spec In Lab Joes Anand MD CHEMISTRY ORDERABLES Performing Organization Address City/State/[facility] Co de Phone Number [facility] [place] [address] * (ABNORMAL) BMP w/fasting Glucose (01/13/2021 5:30 AM EST) Glucose Fasting 92 65 - 99 mg/dL [facility] Comment: ?Fasting* Glucose Interpretive Criteria Normal [...] of Diabetes Mellitus, Position Statement from the [place] [employer]. ??Diabetes Care, Volume 33, Supplement 1, Nov 2009 BUN 14 10 - 20 mg/dL [facility] Creatinine 0.83 0.80 - 1.50 mg/dL [facility] Sodium 135 135 - 145 mmol/L [facility] Potassium 3.8 3.5 - 5.0 mmol/L [facility] Comment: result rechecked- Please note: ??Patients with WBC >100,000 may have falsely elevated Potassium levels. ??For accurate Potassium quantification in these patients send serum separator tube (gold top) for subsequent determinations. ??Contact the Clinical Chemistry Laboratory if there are any questions. Chloride 103 98 - 107 mmol/L [facility] CO2 22 22 - 31 mmol/L [facility] Anion Gap 10 5 - 15 mmol/L [facility] Calcium 8.2(L) 8.5 - 10.5 mg/dL [facility] Estimated GFR 102 >=60 mL/min/1. 73 m?? [facility] Comment: This patient? s [...] Tijerina MD CHEMISTRY ORDERABLES Performing Organization Address City/State/[facility] Co de Phone Number [facility] [place] [address] * ECHO LMTD W/O CONTRAST W LMTD SPEC DOPP (01/12/2021 11:08 AM EST) EF 70 HEARTLAB SYSTEM Anatomical Region Laterality Modality Other 01/12/2021 Narrative 01/12/2021 11:42 AM EST Procedure: ?Transthoracic Echocardiogram Patient: ?ISAAC SHERWOOD Rashaun ?(Age): 1970(50y) Med Rec#: ? [id number] ?Sex: ?M ? Site Loc: ? [facility] ?Ht / Wt: ??168(cm)/198(kg) Pt. Loc: ?Adult Floor ? BSA: ?2.79 Study Date: ?? 01/12/2021 ?Pt. Type: Inpatient Tape: ? Referring: Thor Wills ([id number]) Referring: Judy Tijerina Reading: Roxana Mesa ([id number]) Capacitor Assembler: Willie Dugan ALISHA Capacitor Assembler 2: Suzy Randolph Diagnosis: *Pericardial effusion (noninflammatory) [...] ? Mid-Inferior ?Normal ? Mid-Inferoseptal ?Normal ? [place]-Septal ? Normal ? [place]-Anterior ? Normal ? [place]-Lateral ?Normal ? [place]-Inferior ? Normal ? [place]-Tip ?Normal ? This report has been electronically signed by: Roxana Mesa MD ? 01/12/2021 11:42:18 Images reviewed and interpretation verified [facility] Procedure Note Roxana Mesa MD - 01/12/2021 Procedure: Transthoracic Echocardiogram Patient: ISAAC Rodney (Age): 1970(50y) Med Rec#: [id number] Sex: M Site Loc: [facility] Ht / Wt: 168(cm)/198(kg) Pt. Loc: Adult Floor BSA: 2.79 Study Date: 01/12/2021 Pt. Type: Inpatient Tape: Referring: Thor Wills ([id number]) Referring: Judy Tijerina Reading: Roxana Mesa ([id number]) Capacitor Assembler: Willie Duagn [facility] Capacitor Assembler 2: Suzy Randolph Diagnosis: *Pericardial effusion (noninflammatory) [...] Normal Mid-Posterolateral Normal Mid-Inferior Normal Mid-Inferoseptal Normal [place]-Septal Normal [place]-Anterior Normal [place]-Lateral Normal [place]-Inferior Normal [place]-Tip Normal This report has been electronically signed by: Roxana Mesa MD 01/12/2021 11:42:18 Images reviewed and interpretation verified [facility] Judy Tijerina MD ECHO ORDERABLES * Scan, Peripheral Blood (01/12/2021 8:19 AM EST) Pathologist [facility] Plat Estimate Normal [facility] RBC Morphology Abnormal [facility] Ovalocytes 1-5 /HPF [facility] [place]anna Cells 1-5 /HPF [facility] Vacuolated Neut Present [facility] Blood specimen (specimen) 01/12/2021 8:19 AM EST 01/12/2021 8:36 AM EST Narrative Resulting Agency Comment Spec In Lab Harini Jansen MD HEMATOLOGY ORDERABLE S [facility] [place] [place] [address] * (ABNORMAL) Differential, Automated (01/12/2021 8:19 AM EST) Pathologist [facility] Neutrophils % 71.6 % [facility] Neutr Abs (ANC) 13.82(H) 1.70 - 6.10 x10(3)/mc L [facility] Lymphocytes % 7.9 % [facility] Lymphocytes Abs 1.5 0.9 - 3.2 x10(3)/ L [facility] Monocytes % 8.4 % [facility] Monocyte Abs 1.6(H) 0.3 - 0.9 x10(3)/ L [facility] Eosinophils % 11.3 % [facility] Eosinophils Abs 2.2(H) 0.0 - 0.4 x10(3)/mc L [facility] Basophils % 0.2 % [facility] Basophils Abs 0.0 0.0 - 0.1 x10(3)/mc L [facility] Immature Gran % 0.60 % [facility] Comment: Immature granulocytes(IG's)percentage and absolute count will include metamyelocytes, myelocytes, and promyelocytes. Blood smears from CBCs yielding IG's will be scanned manually for concordance. If this scan disagrees with the automated IG or if promyelocytes are noted, a manual differential will be performed. Amy Gran Abs 0.12(H) 0.00 - 0.04 x10(3)/ L [facility] Blood specimen (specimen) 01/12/2021 8:19 AM EST 01/12/2021 8:36 AM EST Narrative Resulting Agency Comment Spec In Lab Harini Jansen MD HEMATOLOGY ORDERABLE S [facility] [place] [address] * (ABNORMAL) Hemogram (01/12/2021 8:19 AM EST) WBC 19.3(H) 4.0 - 9.5 x10(3)/[facility] LABORATORY RBC 4.48(L) 4.58 - 5.54 x10(6)/[facility] LABORATORY Hemoglobin 12.5(L) 13.7 - 16.5 gm/dL [facility] Hematocrit 38.9(L) 40.5 - 48.5 % [facility] MCV 86.8 82.9 - 93.1 [facility] MCH 27.9 27.5 - 32.1 pg [facility] MCHC 32.1 32.0 - 35.7 gm/dL [facility] Platelets 179 145 - 357 x10(3)/[facility] RDWSD 46.8(H) 36.0 - 45.0 [facility] RDWCV 14.8(H) 11.4 - 13.8 % [facility] MPV 9.9 7.6 - 12.9 [facility] nRBC % Auto 0.0 % [facility] nRBC Abs Auto 0.000 0.000 - 0.000 x10(3)/[facility] LABOR[facility] Blood specimen (specimen) 01/12/2021 8:19 AM EST 01/12/2021 8:36 AM EST Narrative Resulting Agency Comment Spec In Lab Harini Jansen MD HEMATOLOGY ORDERABLE S Performing Organization Address City/[facility]/ZIP Co de Phone Number [facility] [place] [address] * Magnesium (01/12/2021 3:55 AM EST) Magnesium 0.95 0.69 - 1.07 mmol/L [facility] Comment:result rechecked-peg Blood specimen (specimen) Venous Draw / Unknown 01/12/2021 3:55 AM EST 01/12/2021 4:03 AM EST Narrative Resulting Agency Comment Spec In Lab Harini Jansen MD CHEMISTRY ORDERABLES Performing Organization Address City/[facility] Co de Phone Number [facility] [place] [address] * (ABNORMAL) BMP w/fasting Glucose (01/12/2021 3:55 AM EST) Glucose Fasting 126(H) 65 - 99 mg/dL [facility] Comment: ?Fasting* Glucose Interpretive Criteria Normal [...] of Diabetes Mellitus, Position Statement from the [place] [employer]. ??Diabetes Care, Volume 33, Supplement 1, Nov 2009 BUN 18 10 - 20 mg/dL [facility] Creatinine 0.91 0.80 - 1.50 mg/dL [facility] Sodium 135 135 - 145 mmol/L [facility] Potassium 5.0 3.5 - 5.0 mmol/L [facility] Comment: Please note: ??Patients with WBC >100,000 may have falsely elevated Potassium levels. ??For accurate Potassium quantification in these patients send serum separator tube (gold top) for subsequent determinations. ??Contact the Clinical Chemistry Laboratory if there are any questions. Chloride 104 98 - 107 mmol/L [facility] CO2 22 22 - 31 mmol/L [facility] Anion Gap 9 5 - 15 mmol/L [facility] Calcium 8.2(L) 8.5 - 10.5 mg/dL [facility] Estimated GFR 97 >=60 mL/min/1. 73 m?? [facility] Comment: This patient? s [...] In Lab Judy Tijerina MD CHEMISTRY ORDERABLES [facility] [place] [address] * EKG 12 Lead (01/12/2021 12:07 AM EST) Ventricular rate 96 BPM MUSE SYSTEM Atrial Rate 96 BPM MUSE SYSTEM P-R Interval 154 ms MUSE SYSTEM QRS Duration 94 ms MUSE SYSTEM Q-T Interval 354 ms MUSE SYSTEM QTC Calculated (Bezet) 447 ms MUSE SYSTEM Calculated P [place] 44 degrees MUSE SYSTEM Calculated R [place] 16 degrees MUSE SYSTEM Calculated T [place] 23 degrees MUSE SYSTEM INTERPRETATION Normal sinus rhythm Diffuse ST elevation, consider early repolarization, pericarditis, or injury Abnormal ECG When compared with ECG of 11-JAN-2021 06:29, Acute pericarditis is suspected. I personally reviewed the tracing and edited the fellows interpretation Confirmed by fellow Fernandez Higuera ([id number]) on 01/12/2021 9:35:13 AM Confirmed by Vini Chanel ([id number]) on 01/12/2021 5:29:51 PM MUSE SYSTEM 01/12/2021 12:0 7 AM EST 01/12/2021 5:29 PM EST Judy Tijerina MD ECG ORDERABLES MUSE SYSTEM * CARDIAC CATHETERIZATION (01/11/2021 2:33 PM EST) Anatomical Region Laterality Modality Other Narrative 01/11/2021 2:49 PM EST ?[facility] ? Cardiac Catheterization/Intervention Report ? Patient Name: Rolo Aguilar ? Procedure Date: 01/11/2021 ? A #: [id number] ? Primary Physician: Genesis, Erich T ? Case #: [id number] ? File Name: [id number] ? Catheterization Order Number: [id number] ? [facility] ? Final Report [place], [place] ? Patient Name: ? Rolo M Isaac ? ID#: ?[id number] ? : ?1970 ? Procedure Date: ? January 11, 2021 ?Case #: ? [id number] ? Room: ? 5 ? Case Physician: ? Erich Amato M.D. ?Start: ?14:10 ?Fellow: ? Rachana Silver D.O. ?Admission: ??01/10/2021 ? Procedures: ?* Pericardiocentesis [...] was designated as ASA Class IV. The HA clinical ?frailty scale is 6: Moderately Frail. [...] pericardiocentesis and ?transthoracic echo . ? Erich Mishra Genesis, M.D. ? Electronically Signed by: Erich Kennedyries, M.D. ? Report Finalized: 01/11/2021 ??14:44 ? Procedure Note Erich Amato MD - 01/11/2021 [facility] Cardiac Catheterization/Intervention Report Patient Name: Rolo Aguilar Procedure Date: 01/11/2021 A #: [id number] Primary Physician: Erich Amato Case #: [id number] File Name: [id number] Catheterization Order Number: [id number] [facility] FinalReport [place], [place] Patient Name: Rolo Aguilar ID#:[id number] :1970 Procedure Date: January 11, 2021 Case [...] * Lactate, whole blood, send to lab ([facility]) (01/11/2021 1:10 PM EST) Lactate WB 2.1 0.5 - 2.2 mmol/L [facility] Blood specimen (specimen) 01/11/2021 1:10 PM EST 01/11/2021 1:25 PM EST Narrative Resulting Agency Comment Spec In Lab Judy Tijerina MD CHEMISTRY ORDERABLES [facility] [place] [address] * ECHO COMPLETE W CONTRAST (01/11/2021 10:21 AM EST) EF 63 HEARTLAB SYSTEM Anatomical Region Laterality Modality Other 01/11/2021 Narrative 01/11/2021 11:10 AM EST Procedure: ?Transthoracic Echocardiogram Patient: ?ISAAC Rodney ?(Age): 1970(50y) Med Rec#: ? [id number] ?Sex: ?M ? Site Loc: ? [facility] ?Ht / Wt: ??167(cm)/185(kg) Pt. Loc: ?Adult Floor ? BSA: ?2.7 Study Date: ?? 01/11/2021 ?Pt. Type: Inpatient Tape: ? Referring: Rayo Bianchi ([id number]) Reading: Khurram Barillas ([id number]) Capacitor Assembler: Viola Moore Capacitor Assembler 2: Humza Wilson ([id number]) Interpreting Fellow: Humza Wilson ([id number]) Diagnosis: *Supraventricular tachycardia (I47.1) *1 vial Optison [...] Vmax ?0.52 ? m/sec ? MV deceleration [id number] ? msec ? MV A-wave Vmax ?0.41 [...] ? Mid-Inferior ?Normal ? Mid-Inferoseptal ?Normal ? [place]-Septal ? Normal ? [place]-Anterior ? Normal ? [place]-Lateral ?Normal ? [place]-Inferior ? Normal ? [place]-Tip ?Normal ? This report has been electronically signed by: Khurram Barillas MD ? 01/11/2021 11:04:46 Images reviewed and interpretation verified [facility] Procedure Note Khurram Barillas MD - 01/11/2021 Procedure: Transthoracic Echocardiogram Patient: ISAAC Rodney (Age): 1970(50y) Med Rec#: [id number] Sex: M Site Loc: [facility] Ht / Wt: 167(cm)/185(kg) Pt. Loc: Adult Floor BSA: 2.7 Study Date: 01/11/2021 Pt. Type: Inpatient Tape: Referring: Rayo Bianchi ([id number]) Reading: Khurram Barillas ([id number]) Capacitor Assembler: Viola Moore Capacitor Assembler 2: Humza Wilson ([id number]) Interpreting Fellow: Humza Wilson ([id number]) Diagnosis: *Supraventricular tachycardia (I47.1) *1 vial Optison [...] MV E-wave Vmax 0.52 m/sec MV deceleration [id number] msec MV A-wave Vmax 0.41 m/sec MV [...] Normal Mid-Posterolateral Normal Mid-Inferior Normal Mid-Inferoseptal Normal [place]-Septal Normal [place]-Anterior Normal [place]-Lateral Normal [place]-Inferior Normal [place]-Tip Normal This report has been electronically signed by: Khurram Barillas MD 01/11/2021 11:04:46 Images reviewed and interpretation verified [facility] Rayo Bianchi MD ECHO [...] ? Electronically signed by: Tashia Hairston MD, [facility] ([phone]), at 01/11/2021 10:36 AM Narrative 01/11/2021 10:36 [...] below. Electronically signed by: Tashia Hairston MD, [facility]([phone]), at 01/11/2021 10:36 AM Rayo Bianchi MD IMG DX ORDERABLES * POCT Glucose (01/11/2021 7:45 AM EST) [facility] POC Glucose 136 65 - 199 mg/dL [facility] Comment: Supplemental ranges: <140 mg/dL before meals <180 mg/dL all other times of the day Blood specimen (specimen) 01/11/2021 7:45 AM EST 01/11/2021 7:45 AM EST Judy Tijerina MD POINT OF CARE TEST O RDERABLES Performing Organization Address City/State/[facility] Co de Phone Number [facility] [place] [address] * (ABNORMAL) Differential, Automated (01/11/2021 7:40 AM EST) [facility] Neutrophils % 85.3 % [facility] Neutr Abs (ANC) 11.24(H) 1.70 - 6.10 x10(3)/mc L [facility] Lymphocytes % 8.5 % [facility] Lymphocytes Abs 1.1 0.9 - 3.2 x10(3)/mc L [facility] Monocytes % 5.5 % [facility] Monocyte Abs 0.7 0.3 - 0.9 x10(3)/mc L [facility] Eosinophils % 0.0 % [facility] Eosinophils Abs 0.0 0.0 - 0.4 x10(3)/mc L [facility] Basophils % 0.1 % [facility] Basophils Abs 0.0 0.0 - 0.1 x10(3)/[facility] Immature Gran % 0.60 % [facility] Comment: Immature granulocytes(IG's)percentage and absolute count will include metamyelocytes, myelocytes, and promyelocytes. Blood smears from CBCs yielding IG's will be scanned manually for concordance. If this scan disagrees with the automated IG or if promyelocytes are noted, a manual differential will be performed. Amy Gran Abs 0.08(H) 0.00 - 0.04 x10(3)/ L [facility] Blood specimen (specimen) 01/11/2021 7:40 AM EST 01/11/2021 7:58 AM EST Narrative Resulting Agency Comment Spec In Lab Harini Jansen MD HEMATOLOGY ORDERABLE S Performing Organization Address City/State/[facility] Co de Phone Number [facility] [place] [address] * (ABNORMAL) Hemogram (01/11/2021 7:40 AM EST) WBC 13.2(H) 4.0 - 9.5 x10(3)/[facility] RBC 4.87 4.58 - 5.54 x10(6)/[facility] Hemoglobin 13.7 13.7 - 16.5 gm/dL [facility] Hematocrit 42.2 40.5 - 48.5 % [facility] MCV 86.7 82.9 - 93.1 fL [facility] MCH 28.1 27.5 - 32.1 pg [facility] MCHC 32.5 32.0 - 35.7 gm/dL [facility] Platelets 224 145 - 357 x10(3)/[facility] RDWSD 45.8(H) 36.0 - 45.0 fL [facility] RDWCV 14.3(H) 11.4 - 13.8 % [facility] MPV 10.7 7.6 - 12.9 fL [facility] nRBC % Auto 0.0 % [facility] nRBC Abs Auto 0.000 0.000 - 0.000 x10(3)/mcL [facility] Blood specimen (specimen) 01/11/2021 7:40 AM EST 01/11/2021 7:58 AM EST Narrative Resulting Agency Comment Spec In Lab Harini Jansen MD HEMATOLOGY ORDERABLE S [facility] [place] [address] * (ABNORMAL) BMP w/fasting Glucose (01/11/2021 7:40 AM EST) Glucose Fasting 155(H) 65 - 99 mg/dL [facility] Comment: ?Fasting* Glucose Interpretive Criteria Normal [...] of Diabetes Mellitus, Position Statement from the [place] [employer]. ??Diabetes Care, Volume 33, Supplement 1, Nov 2009 BUN 15 10 - 20 mg/dL [facility] Creatinine 0.86 0.80 - 1.50 mg/dL [facility] Sodium 134(L) 135 - 145 mmol/L [facility] Potassium 4.9 3.5 - 5.0 mmol/L [facility] Comment: Please note: ??Patients with WBC >100,000 may have falsely elevated Potassium levels. ??For accurate Potassium quantification in these patients send serum separator tube (gold top) for subsequent determinations. ??Contact the Clinical Chemistry Laboratory if there are any questions. Chloride 104 98 - 107 mmol/L [facility] CO2 19(L) 22 - 31 mmol/L [facility] Anion Gap 11 5 - 15 mmol/L [facility] Calcium 8.1(L) 8.5 - 10.5 mg/dL [facility] Estimated GFR 100 >=60 mL/min/1. 73 m?? [facility] Comment: This patient? s [...] Tijerina MD CHEMISTRY ORDERABLES Performing Organization Address City/[facility]/ZIP Co de Phone Number [facility] [address] * (ABNORMAL) Lactate, whole blood, send to lab ([facility]) (01/11/2021 7:40 AM EST) Lactate WB 2.7(H) 0.5 - 2.2 mmol/L [facility] Blood specimen (specimen) 01/11/2021 7:40 AM EST 01/11/2021 8:00 AM EST Narrative Resulting Agency Comment Spec In Lab Judy Tijerina MD CHEMISTRY ORDERABLES [facility] [place] [address] * (ABNORMAL) Hepatic Function Panel (01/11/2021 6:40 AM EST) [facility] Total Protein 5.9(L) 6.1 - 8.0 gm/dL [facility] Albumin 3.3 3.2 - 5.2 gm/dL [facility] AST 47(H) 0 - 39 unit/L [facility] ALT 40 0 - 55 unit/L [facility] Alk Phos 47 40 - 130 unit/L [facility] Total Bilirubin 0.4 0.2 - 1.3 mg/dL [facility] Bili, Direct 0.1 0.0 - 0.3 mg/dL [facility] Blood specimen (specimen) Venous Draw / Unknown 01/11/2021 6:40 AM EST 01/11/2021 6:48 AM EST Narrative Resulting Agency Comment Spec In Lab Harini Jansen MD CHEMISTRY ORDERABLES [facility] [place] [address] * (ABNORMAL) Troponin (01/11/2021 6:40 AM EST) [facility] Troponin-T 1.06(H) 0.00 - 0.00 ng/mL [facility] Comment: The 99th percentile for Troponin T is less than 0.01 ng/mL, any detectable cTnT concentration using this assay should be considered elevated. According to the third universal definition of myocardial infarction the following criteria with a clinical presentation consistent with acute myocardial ischemia meets the diagnosis for a myocardial infarction (AL). Detection of a rise and/or fall of cTnT, with at least one value greater than the 99th percentile (> or = 0.01) and with at least one of the following ?? Symptoms of ischemia ?? New or presumed new significant JK-atnrvnm-M wave (ST-T) changes or new left bundle [...] additional sample may be indicated. Reference: Third [place] Definition of Myocardial Infarction. Journal of the [place] [employer] 2012;60:1581-98 Blood specimen (specimen) 01/11/2021 6:40 AM EST 01/11/2021 6:47 AM EST Narrative Resulting Agency Comment Spec In Lab Rayo Bianchi MD CHEMISTRY ORDERABLES Performing Organization Address [facility] Co de Phone Number [facility] [place] [address] * EKG 12 Lead (01/11/2021 6:29 AM EST) Ventricular rate 101 BPM MUSE SYSTEM Atrial Rate 101 BPM MUSE SYSTEM P-R Interval 150 ms MUSE SYSTEM QRS Duration 88 ms MUSE SYSTEM Q-T Interval 360 ms MUSE SYSTEM QTC Calculated (Bezet) 466 ms MUSE SYSTEM Calculated P [place] 46 degrees MUSE SYSTEM Calculated R [place] 47 degrees MUSE SYSTEM Calculated T [place] 29 degrees MUSE SYSTEM INTERPRETATION Sinus tachycardia Low voltage QRS Borderline ECG When compared with ECG of 11-JAN-2021 01:59, (unconfirmed) No significant change was found Confirmed by MD Alecia, Ruperto Moya ([id number]) on 01/11/2021 5:10:03 PM MUSE SYSTEM 01/11/2021 6:29 AM EST 01/11/2021 5:10 PM EST Rayo Bianchi MD ECG ORDERABLES Performing Organization Address [facility] Co de Phone Number MUSE SYSTEM * Blood culture (01/11/2021 4:51 AM EST) Blood Culture No growth at 5 days. [facility] Blood specimen (specimen) STRUCTURE OF RIGHT HAND / Unknown 01/11/2021 4:51 AM EST 01/11/2021 6:43 AM EST Comment:SET 2 Narrative Resulting Agency Comment Spec In Lab Fadi Escobar MD MICROBIOLOGY - BLOOD ORDERABLES Performing Organization Address [facility]/ZIP Co de Phone Number [facility] [place] [address] * Blood culture (01/11/2021 4:30 AM EST) Blood Culture No growth at 5 days. [facility] Blood specimen (specimen) STRUCTURE OF RIGHT HAND / Unknown 01/11/2021 4:30 AM EST 01/11/2021 6:44 AM EST Narrative Resulting Agency Comment Spec In Lab Fadi Escobar MD MICROBIOLOGY - BLOOD ORDERABLES Performing Organization Address [facility] de Phone Number [facility] [place] [address] * XR Chest One View (01/11/2021 2:13 [...] report, please contact the number below. ? Narrative 01/11/2021 7:50 AM EST EXAMINATION: XR [...] below. Electronically signed by: Chavo Bartlett DO, [facility]([phone]), at 01/11/2021 7:50 AM Rayo Bianchi MD IMG DX ORDERABLES * (ABNORMAL) Lactate, whole blood, send to lab ([facility]) (01/11/2021 2:05 AM EST) Pathologist [facility] Lactate WB 3.5(H) 0.5 - 2.2 mmol/L [facility] Blood specimen (specimen) Venous Draw / Unknown 01/11/2021 2:05 AM EST 01/11/2021 2:14 AM EST Narrative Resulting Agency Comment Spec In Lab Ernie Thrasher MD CHEMISTRY ORDER BELEN Performing Organization Address City/[facility]/ZIP Co de Phone Number [facility] [place] [phone] * EKG 12 Lead (01/11/2021 1:59 AM EST) [facility] Ventricular rate 96 BPM MUSE SYSTEM Atrial Rate 96 BPM MUSE SYSTEM P-R Interval 148 ms MUSE SYSTEM QRS Duration 84 ms MUSE SYSTEM Q-T Interval 366 ms MUSE SYSTEM QTC Calculated (Bezet) 462 ms MUSE SYSTEM Calculated P [place] 52 degrees MUSE SYSTEM Calculated R [place] 60 degrees MUSE SYSTEM Calculated T [place] 19 degrees MUSE SYSTEM INTERPRETATION Normal sinus rhythm Baseline artifact Normal ECG When compared with ECG of 17-DEC-2020 02:40, Sinus rhythm has replaced Atrial fibrillation I personally reviewed the tracing and edited the fellows interpretation Confirmed by fellow Fernandez Higuera ([id number]) on 01/11/2021 10:24:41 AM Confirmed by Vini Chanel ([id number]) on 01/12/2021 5:28:31 PM MUSE SYSTEM 01/11/2021 1:59 AM EST 01/12/2021 5:28 PM EST Rayo Bianchi MD ECG ORDERABLES Performing Organization Address City/[facility]/ZIP Co de Phone Number MUSE SYSTEM * (ABNORMAL) Differential, Automated (01/10/2021 9:55 PM EST) Pathologist [facility] Neutrophils % 88.7 % [facility] Neutr Abs (ANC) 14.29(H) 1.70 - 6.10 x10(3)/mc L [facility] Lymphocytes % 8.9 % [facility] Lymphocytes Abs 1.4 0.9 - 3.2 x10(3)/ L [facility] Monocytes % 1.4 % [facility] Monocyte Abs 0.2(L) 0.3 - 0.9 x10(3)/[facility] Eosinophils % 0.1 % [facility] Eosinophils Abs 0.0 0.0 - 0.4 x10(3)/[facility] LAB[facility] Basophils % 0.3 % [facility] Basophils Abs 0.0 0.0 - 0.1 x10(3)/[facility] LABORATORY Immature Gran % 0.60 % [facility] Comment: Immature granulocytes(IG's)percentage and absolute count will include metamyelocytes, myelocytes, and promyelocytes. Blood smears from CBCs yielding IG's will be scanned manually for concordance. If this scan disagrees with the automated IG or if promyelocytes are noted, a manual differential will be performed. Amy Gran Abs 0.09(H) 0.00 - 0.04 x10(3)/[facility] Blood specimen (specimen) 01/10/2021 9:55 PM EST 01/10/2021 10:01 PM EST Narrative Resulting Agency Comment Spec In Lab Ernie Thrasher MD HEMATOLOGY [employer]ER [employer]BLO[employer] [facility] Organization Address City/State/ZIP Co de Phone Number [facility] [place] [address] * (ABNORMAL) Hemogram (01/10/2021 9:55 PM EST) WBC 16.1(H) 4.0 - 9.5 x10(3)/[facility] LABORATORY RBC 4.79 4.58 - 5.54 x10(6)/[facility]ORY Hemoglobin 13.5(L) 13.7 - 16.5 gm/dL [facility] Hematocrit 41.1 40.5 - 48.5 % [facility] MCV 85.8 82.9 - 93.1 fL [facility] MCH 28.2 27.5 - 32.1 pg [facility] MCHC 32.8 32.0 - 35.7 gm/dL [facility] Platelets 253 145 - 357 x10(3)/[facility] LABORATORY RDWSD 44.0 36.0 - 45.0 fL [facility] RDWCV 14.2(H) 11.4 - 13.8 % [facility] MPV 10.3 7.6 - 12.9 [facility] LAB[facility]ATORY nRBC % Auto 0.0 % [facility] nRBC Abs Auto 0.000 0.000 - 0.000 x10(3)/[facility] LAB[facility]ORY Blood specimen (specimen) 01/10/2021 9:55 PM EST 01/10/2021 10:01 PM EST Narrative Resulting Agency Comment Spec In Lab Ernie Thrasher MD HEMATOLOGY [employer] [place] Performing Organization Address [facility]/[place] [address] * (ABNORMAL) APTT (01/10/2021 9:55 PM EST) PTT 66(H) 25 - 37 sec [facility] Comment: The PTT is NOT appropriate for heparin monitoring. Use the Anti-Xa level for heparin monitoring (HEP UFH) or LMWH monitoring (HEP LMW). A PTT less than 37 seconds generally indicates adequate hemostasis. Blood specimen (specimen) 01/10/2021 9:55 PM EST 01/10/2021 10:01 PM EST Narrative Resulting Agency Comment Spec In Lab Fadi Escobar MD HEMATOLOGY ORDERABLE S Performing Organization Address City/[facility]/ZIP Co de Phone Number [facility] [place] [address] * (ABNORMAL) Prothrombin Time (01/10/2021 9:55 PM EST) PT 15.6(H) 9.4 - 12.5 sec [facility] INR 1.4 [facility] Comment: An INR <2.0 [...] MD HEMATOLOGY ORDERABLE S Performing Organization Address [facility] Co de Phone Number [facility] [place] [address] * (ABNORMAL) Hepatic Function Panel (01/10/2021 9:55 PM EST) Pathologist [facility] Total Protein 6.1 6.1 - 8.0 gm/dL [facility] Albumin 3.3 3.2 - 5.2 gm/dL [facility] AST 46(H) 0 - 39 unit/L [facility] ALT 40 0 - 55 unit/L [facility] Alk Phos 51 40 - 130 unit/L [facility] Total Bilirubin 0.5 0.2 - 1.3 mg/dL [facility] Bili, Direct 0.2 0.0 - 0.3 mg/dL [facility] Blood specimen (specimen) 01/10/2021 9:55 PM EST 01/10/2021 10:01 PM EST Narrative Resulting Agency Comment Spec In Lab Fadi Escobar MD CHEMISTRY ORDERABLES Performing Organization Address [facility] Co de Phone Number [facility] [place] [address] * (ABNORMAL) Magnesium (01/10/2021 9:55 PM EST) Magnesium 0.63(L) 0.69 - 1.07 mmol/L [facility] Blood specimen (specimen) 01/10/2021 9:55 PM EST 01/10/2021 10:01 PM EST Narrative Resulting Agency Comment Spec In Lab Fadi Escobar MD CHEMISTRY ORDERABLES [facility] [place] [address] * (ABNORMAL) Basic Metabolic Panel (non-fasting) (01/10/2021 9:55 PM EST) Glucose Lvl 171 65 - 199 mg/dL [facility] Comment:Diabetes: >=200 mg/d L plus symptoms BUN 15 10 - 20 mg/dL [facility] Creatinine 0.89 0.80 - 1.50 mg/dL [facility] Sodium 138 135 - 145 mmol/L [facility] Potassium 4.3 3.5 - 5.0 mmol/L [facility] Comment: Please note: ??Patients with WBC >100,000 may have falsely elevated Potassium levels. ??For accurate Potassium quantification in these patients send serum separator tube (gold top) for subsequent determinations. ??Contact the Clinical Chemistry Laboratory if there are any questions. Chloride 107 98 - 107 mmol/L [facility] CO2 18(L) 22 - 31 mmol/L [facility] Anion Gap 13 5 - 15 mmol/L [facility] Calcium 8.1(L) 8.5 - 10.5 mg/dL [facility] Estimated GFR 99 >=60 mL/min/1. 73 m?? [facility] Comment: This patient? s [...] In Lab Fadi Escobar MD CHEMISTRY ORDERABLES [facility] [place] [address] * ELECTROPHYSIOLOGY PROCEDURE (01/10/2021 6:28 PM EST) Anatomical Region Laterality Modality Other Narrative 01/22/2021 8:24 AM EDT Cardiac Electrophysiology Please refer to the operative note filed under the inpatient tab following the completion of this procedure. Fadi Escobar MD EP PROCEDURE ORDERAB LES * (ABNORMAL) Point of Care Blood Gas Historical (01/10/2021 4:20 PM EST) POC pH 7.41 7.35 - 7.45 [facility] POC PCO2 40 35 - 45 mmHg [facility] POC PO2 149(H) 85 - 104 mmHg [facility] POC Base Excess 0.0 -3.0 - 3.0 mmol/L [facility] POC HCO3 24.8 20.0 - 26.0 mmol/L [facility] POC Sodium 139 135 - 145 mmol/L [facility] POC Potassium 3.9 3.5 - 5.0 mmol/L [facility] POC Hematocrit 42.0 40.0 - 51.0 % [facility] POC Calc Hgb 14.3 13.7 - 17.5 gm/dL [facility] Comment:The calculation of h emoglobin from hematocrit assumes a normal MCHC. POC Bgas Loc CC LAB [facility] Blood specimen (specimen) 01/10/2021 4:20 PM EST 01/11/2021 9:00 AM EST Jose Anand MD CHEMISTRY ORDERABLES [facility] [place] [address] * COVID-19 PCR (01/10/2021 12:32 PM EST) SARS-CoV-2 RNA PCR Not Detected Not Detected [facility] Comment: This result should be interpreted [...] using the Simplexa COVID-19 Direct Assay by My Visual Brief as authorized by the FDA issued Emergency [...] Department of Pathology and Laboratory Medicine at [facility], certified under the Clinical Laboratory Improvement Amendments [...] fact sheets at the following FDA website: https://www.fda.gov/medical-devices/yygqbxvpgxo-ymwfgkn-8134-ptqiw-92-lxiraxbpq- use-a dzxbhofxmdqgj-paupeba-qxncgka/dvphb-rqqjkebzdzc-ofib SARS-CoV-2 Source [facility] Nasopharyngeal swab (specimen) 01/10/2021 12:32 PM EST 01/10/2021 1:22 PM EST Comment:Symptoms->Surveillan ce Narrative Resulting Agency Comment Spec In Lab Fadi Escobar MD MICROBIOLOGY - GENER AL ORDERABLES Performing Organization Address City/State/[facility] Co de Phone Number [facility] [place] [phone] documented in this encounter Visit Diagnoses Not on filedocumented in this encounter Admitting Diagnoses Diagnosis SVT [...] 01/12/2021 9:00 PM EST 5 mg aspirin EC tablet 650 mg 650 [...] Given 01/12/2021 8:40 AM EST 0.6 mg fentaNYL (pf) (50 mcg/mL) multi-dose injection ONCE PRN, Starting on Candi 01/11/21 at 1412, Until Candi 01/11/21 at 1433, Intra-Operative (Intra-Procedure), Routine Given 01/11/2021 2:20 PM EST 25 mcg Right Arm Given 01/11/2021 2:16 PM EST 25 mcg Ri ght Arm Given 01/11/2021 2:12 PM EST 25 mcg Ri ght Arm HYDROmorphone (Dilaudid) (1 mg/mL) injection syringe 0.4 mg 0.4 mg, Intravenous, EVERY 2 HOURS PRN, Starting on Fri01/12/21 at 0022, Until 01/13/21 at 1737, Pain, Routine Given 01/12/2021 9:02 PM EST 0.4 mg Given 01/12/2021 10:14 AM EST 0.4 mg Given 01/12/2021 5:21 AM EST 0.4 mg lamoTRIgine (LaMICtal) tablet 100 mg 100 mg, Oral, DAILY, First dose (after last modification) on Fri01/12/21 at 0900, Until Discontinued, Routine Given 01/13/2021 8:24 AM EST 100 mg Given 01/12/2021 8:40 AM EST 100 mg lidocaine (Lidoderm) 5% topical patch 3 patch [...] 2100, Until Discontinued, Remove lidocaine 5% patch lidocaine (Xylocaine) 1% (10 mg/mL) injection ONCE PRN, Starting on Candi 01/11/21 at 1401, Until Candi 01/11/21 at 1433, Cath (Intra-Procedure), Routine Given 01/11/2021 2:01 PM EST 5 mLs 20-Other (document i n comment section) loperamide (Imodium A-D) capsule 4 mg 4 mg, Oral, 4 TIMES DAILY PRN, Starting on 01/13/21 at 1244, Until 01/13/21 at 1737, Diarrhea, Do not exceed 16 mg/day., Routine Given 01/13/2021 1:41 PM EST 4 mg metoprolol tartrate (Lopressor) tablet 12.5 mg 12.5 mg, Oral, EVERY 6 HOURS SCHEDULED, First dose (after last modification) on 01/13/21 at 1800, Until Discontinued, Routine midazolam (pf) (Versed) (1 mg/mL) injection 1 mg 1 mg, Intravenous, Administer over 4 Hours, EVERY 1 HOUR PRN, 2 doses, Starting on Candi 01/11/21 at 1946, Until 01/13/21 at 1737, For sheath removal, May repeat once while in Cath Recovery Unit., Cath (Recovery-Hospital Unit), Routine midazolam (pf) (Versed) (1 mg/mL) multi-dose injection ONCE PRN, Starting on Candi 01/11/21 at 1401, Until Candi 01/11/21 at 1433, Cath (Intra-Procedure), Routine Given 01/11/2021 2:21 PM EST 1 mg Right Arm Given 01/11/2021 2:16 PM EST 1 mg Ri ght Arm Given 01/11/2021 2:01 PM EST 1 mg Ri ght Arm pantoprazole EC (Protonix) tablet 40 mg 40 mg, Oral, 2 TIMES DAILY, First dose on Fri01/10/21 at 2345, Until Discontinued, DO NOT CRUSH OR OPEN, Routine Given 01/13/2021 8:26 AM EST 40 mg Given 01/12/2021 9:00 PM EST 40 mg Given 01/12/2021 8:40 AM EST 40 mg sodium chloride 0.9 % (flush) [...] Given 01/11/2021 9:13 PM EST 5 mLs documented in this encounter Active and Recently [...] Tess Santiago RN)2334 (Given - Provider: Nayan William RN) 0620 (Given - Provider: Nayan William RN)1117 (Given - Provider: Tess Santiago RN) AMIOdarone [...] on Fri01/11/21 at 0015, Until Discontinued, Routine 003 (Given - Provider: Citlali Flores RN) aspirin [...] on Fri01/10/21 at 2345, Until Discontinued, Routine 003 (Given - Provider: Citlali Flores RN)1341 (JAN Hold - Provider: Admin Adt - Reason: Transfer to a Procedural area)1446 (JAN Unhold - Provider: Admin Adt)1641 (Given - [...] Fri01/12/21 at 0900, Until Discontinued, Routine 1341 (JAN Hold - Provider: Admin [...] patch 2100 (Patch Removed - Provider: Nayan William, FLAVIA) magnesium sulfate 2 g in sterile water 50 mL infusion (COMPLETED) 2 g, Intravenous, ONCE, 1 dose, On Candi 01/11/21 at 0030, Administer over 120 Minutes 0038 (New Bag - Provider: Citlali Flores RN)0238 (Stopped - Provider: Citlali Flores RN) magnesium sulfate 2 g in sterile water 50 mL infusion (COMPLETED) 2 g, Intravenous, ONCE, 1 dose, On Candi 01/11/21 at 0815, Administer over 120 Minutes 0838 (New Bag - Provider: Tess Santiago RN)1038 (Stopped - Provider: Gina Carmichael RN) metoprolol tartrate (Lopressor) tablet 12.5 mg 12.5 mg, Oral, EVERY 6 HOURS SCHEDULED, First dose (after last modification) on 01/13/21 at 1800, Until Discontinued, Routine metoprolol tartrate (Lopressor) tablet 25 mg (CANCELED) 25 mg, Oral, EVERY 6 HOURS SCHEDULED, First dose on 01/13/21 at 0930, Until Discontinued, Routine 0911 (Given - Provider: Tess Santiago RN) morphine (2 mg/mL) injection 1 mg (COMPLETED) 1 mg, Intravenous, ONCE, 1 dose, On Fri01/11/21 at 1615, Routine 1532 (Given - Provider: Gina Carmichael, FLAVIA) oxyCODONE (Roxicodone) tablet 5 mg (COMPLETED) 5 mg, Oral, ONCE, 1 dose, On Fri01/11/21 at 1715, Routine 1641 (Given - Provider: Gina Carmichael RN) oxyCODONE [...] Procedural area)1446 (JAN Unhold - Provider: Admin Adt)2104 (Given - Provider: Nayan William RN) 0840 (Given - Provider: Tess Santiago RN)2099 (Given - Provider: Nayan William RN) 0826 [...] infusing) 0852 (Given - Provider: Tess Santiago RN)2100 (Given - Provider: Nayan William RN) 0843 (Given - Provider: Tess Santiago RN) sodium chloride 0.9 % (flush) flush 5 mL 5 mL, Intravenous, 2 TIMES DAILY, First dose on Fri01/10/21 at 2345, Until Discontinued, Routine 0900 (Not Given - Provider: Tess Santiago RN - Reason: See comment - Comment: infusing)1341 (JAN Hold - Provider: Admin Adt - Reason: Transfer to a Procedural area)1446 (JAN Unhold - Provider: Admin Adt)2112 (Given - Provider: Nayan William RN) 0900 (Not Given - Provider: Tess Santiago [...] Tess Santiago RN)1152 (Paused - Provider: Gina Carmichael RN)1222 (Restarted - Provider: Gina Carmichael RN)1341 (JAN Hold - Provider: Admin Adt [...] Oral, EVERY 6 HOURS PRN, Starting on 01/10/21 at 2329, Until Candi 01/11/21 at 1202, Pain, Maximum dose of acetaminophen is 4000 mg from all sources in 24 hours. When ordered for pain, acetaminophen should be given even when other ordered pain medications are indicated. , Routine 08 (Given - Provider: Tess Santiago RN) acetaminophen [...] Procedural area)1446 (MAR Unhold - Provider: Admin Adt)1516 (Given - Provider: Gina Carmichael, RN)210 (Given - Provider: Nayan William, RN) 0322 (Given - Provider: Nayan William, FLAVIA) atropine (0.1 mg/mL) injection 1 mg 1 mg, Intravenous, Administer over 4 Hours, EVERY 5 MIN PRN, 2 doses, Starting on Candi 01/11/21 at 1946, Until 01/13/21 at 1737, Other, vasovagal episode, Call interventional MDLexie, Cath (Recovery-Hospital Unit), Routine clonazePAM (KlonoPIN) tablet 1 mg 1 mg, Oral, 2 TIMES DAILY PRN, Starting on Fri01/10/21 at 2329, Until 01/13/21 at 1737, Anxiety, DO NOT SPLIT, CRUSH OR OPEN, Routine 1341 (JAN Hold - Provider: Admin Adt - Reason: Transfer to a Procedural area)1446 (JAN Unhold - Provider: Admin Adt)2106 (Given - Provider: Nayan William, FLAVIA) 0848 (Given - Provider: Tess Santiago RN) fentaNYL (pf) (50 mcg/mL) multi-dose injection (CANCELED) ONCE PRN, Starting on Candi 01/11/21 at 1412, Until Candi 01/11/21 at 1433, Intra-Operative (Intra-Procedure), Routine 1412 (Given - Provider: Jonathon Jimenez, FLAVIA)1416 (Given - Provider: Jonathon Jimenez, FLAVIA)1420 (Given - Provider: Elle Sherman RN) HYDROmorphone (Dilaudid) (1 mg/mL) injection syringe 0.4 mg (CANCELED) 0.4 mg, Intravenous, EVERY 4 HOURS PRN, Starting on Candi 01/11/21 at 1727, Until Fri01/12/21 at 0004, Pain, Routine 1749 (Given - Provider: Tess Santiago RN)2214 (Given - Provider: Nayan William, FLAVIA) HYDROmorphone (Dilaudid) (1 mg/mL) injection syringe 0.4 mg 0.4 mg, Intravenous, EVERY 2 HOURS PRN, Starting on Fri01/12/21 at 0022, Until 01/13/21 at 1737, Pain, Routine 0100 (Given - Provider: Nayan William, RN)0323 (Given - Provider: Nayan William, FLAVIA)0521 (Given - Provider: Nayan William RN)1014 (Given - Provider: Tess Santiago, RN)2102 (Given - Provider: Nayan William, RN) lidocaine (Xylocaine) 1% (10 mg/mL) injection 3 mg 3 mg (0.3 mL), Subcutaneous, ONCE PRN, 1 dose, Starting on 01/10/21 at 2123, Until 01/13/21 at 1737, for discomfort with PIV insertion, Recovery (Recovery-Hospital Unit), Routine lidocaine (Xylocaine) 1% (10 mg/mL) injection (CANCELED) ONCE PRN, Starting on Candi 01/11/21 at 1401, Until Candi 3 at 1433, Cath (Intra-Procedure), Routine 1401 (Given - Provider: Rachana Silver, DO - Comment: Left lateral chest wall) loperamide (Imodium A-D) capsule 4 mg 4 mg, Oral, 4 TIMES DAILY PRN, Starting on 01/13/21 at 1244, Until 01/13/21 at 1737, Diarrhea, Do not exceed 16 mg/day., Routine 1341 (Given - Provider: Tess Santaigo, FLAVIA) midazolam (pf) (Versed) (1 mg/mL) injection 1 [...] on Candi 01/11/21 at 1401, Until Candi 3 at 1433, Cath (Intra-Procedure), Routine 1401 (Given - Provider: Jonathon Jimenez, FLAVIA)1416 (Given - Provider: Jonathon Jimenez RN)1421 (Given - Provider: Jonathon Jimenez, RN) nitroGLYcerin (Nitrostat) disintegrating tablet 0.4 mg [...] - Reason: Transfer to a Procedural area)1446 ([facility] Unhold - Provider: Admin Adt) sodium chloride [...] provided on this medication record., Routine 1341 ([facility] Hold - Provider: Admin Adt - Reason: Transfer to a Procedural area)1446 ([facility] Unhold - Provider: Admin Adt) Linked Groups [...] patch documented in this encounter 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
--- OUTSIDE RECORDS SUMMARY | 2024-06-04 20:45 | XMS_ITS | Encounter Summary ---
Author Organization [facility] Address [facility] [place] [address] Care Team Providers Care Bench Tool Maker Name Role Phone Bin Bwoman MD Primary Care Provider Reason for Visit * Auth/Cert Specialty Diagnoses / Procedures Referred By Zeyad mishra Referred To Contact Diagnoses SVT (supraventricular tachycardia) [I47.1], PAF (paroxysmal atrial fibrillation) [I48.0] Procedures ELECTROPHYSIOLOGY PROCEDURE TRANSESOPHAGEAL ECHO DURING CATH/EP PROCEDURE Referral ID Status Reason Start Date Expiration Date Visits Re quested Visits Authorized [id number] 1 1 Encounter Details Date Type Department Care Team (Late st Contact Info) Description 01/10/2021 10:30 AM EST - 01/10/2021 5:25 PM EST Surgery [place] [address] Fadi Escobar MD [facility] [place] [place] [address] ELECTROPHYSIOLOGY PROCEDURE Social History Tobacco Use Types Packs/Day Years [...] Sign Reading Time Taken Comments Blood Pressure 148/67 01/10/2021 10:06 AM EST Pulse 66 01/10/2021 10:06 AM EST Temperature 36.5 ??C (97.7 ??F) 01/10/2021 1 0:06 AM EST Respiratory Rate 18 01/10/2021 10:0 6 AM EST Oxygen Saturation 97% 01/10/2021 10: 06 AM EST Inhaled Oxygen Concentration - - Weight 184.7 kg (407 lb 3.2 oz) 021 10:06 AM EST Height 167.6 cm (5' 6) [...] take 650 mg daily until 01/31. 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 He was awakened from anesthesia, extubated and [...] MV E-wave Vmax 0.94 m/sec MV deceleration wlst815.49 msec MV A-wave Vmax 0.66 m/sec MV [...] Normal Mid-Posterolateral Normal Mid-Inferior Normal Mid-Inferoseptal Normal [place]-Septal Normal [place]-Anterior Normal [place]-Lateral Normal [place]-Inferior Normal [place]-Tip Normal TTE 01/12/21 1. A trivial pericardial [...] MV E-wave Vmax 0.52 m/sec MV deceleration zmmm747.21 msec MV A-wave Vmax 0.41 m/sec MV [...] Normal Mid-Posterolateral Normal Mid-Inferior Normal Mid-Inferoseptal Normal [place]-Septal Normal [place]-Anterior Normal [place]-Lateral Normal [place]-Inferior Normal [place]-Tip Normal Pericardiocentesis 01/11/21 Conclusions: * Successful placement [...] 4:20 PM Jayne Rogel APRN Cardiology at [facility] Arrive at: [facility] [phone] 02/05/2021 2:15 PM Mary Daley PA Cardiology at [facility] Arrive at: [facility] [phone] General Instructions DISCHARGE INSTRUCTIONS FOLLOWING YOUR ABLATION [...] of any new medications initiated at the [facility]. The patient should be aware and informed [...] or the Cardiac Electrophysiology Service Triage Nurse ([phone], option 3). Patient Instructions Patient Instructions on [...] Time Provider Department Center 01/17/2021 4:20 PM Janye Rogel APRN [facility] CARD 4A [facility] 02/05/2021 2:15 PM Mary aDley PA [facility] CARD 4A [facility] PCP: Bin Bowman MD @ [phone] Roofing Apprentice: Will be assigned at the next cardiology appt Your Inpatient Medical Team at [facility] Name(s) of your inpatient provider(s): Jose Anand MD- Attending physician Thor Wills MD- Medical Billing Manager Harini Jansen MD-Resident Physician Chavo Dominguez MD- Magnetic Healer Physician Call your doctor if: Chest pain, shortness of breath, pain or swelling in legs occurs. If you have non-emergent questions between now and the time of your follow up appointments: During 8am-5pm Friday through Friday call [phone] to speak with a nurse in the cardiology clinic All other times call [phone] and ask to speak to the classification inspector balloon pilot. For questions regarding this document or issues relating to this hospitalization on the Medical Service, please contact your inpatient physician through the [facility] Inserting Operator . Issues afterhours and on weekends will be handled by the Roofing Apprentice staff on-call. documented in this encounter Discharge Instructions * Discharge Instructions* Maria M Hercules APRN - 01/12/2021 4:04 PM EST DISCHARGE INSTRUCTIONS [...] of any new medications initiated at the [facility]. The patient should be aware and informed [...] or the Cardiac Electrophysiology Service Triage Nurse ([phone], option 3). * Patient Instructions* Harini Jansen [...] Center 01/17/2021 4:20 PM Jayne Rogel APRN [facility] CARD 4A [facility] 02/05/2021 2:15 PM Mary Daley PA [facility] CARD 4A [facility] PCP: Bin Bowman MD @ [phone] Roofing Apprentice: Will be assigned at the next cardiology appt Your Inpatient Medical Team at [facility] Name(s) of your inpatient provider(s): Jose Anand MD- Attending physician Thor Wills MD- Medical Billing Manager Harini Jansen MD-Resident Physician Chavo Dominguez MD- Magnetic Healer Physician Call your doctor if: Chest pain, shortness of breath, pain or swelling in legs occurs. If you have non-emergent questions between now and the time of your follow up appointments: During 8am-5pm Friday through Friday call [phone] to speak with a nurse in the cardiology clinic All other times call [phone] and ask to speak to the classification inspector balloon pilot. documented in this encounter Medications at Time [...] Physical Therapy: 20 NAYAN GUERRERO PT Pager: [phone] Physical Therapy Inpatient Rehabilitation Department * Tess [...] IVs and tele removed. Pt [facility] in wheelchair by staff with belongings. * [...] Dr. Jansen. Jose Anand MD, MPH, VI, [facility] Pager [phone] [facility] ManagerInformation [place] [address] * Mahogany Ferreira OT - 01/13/2021 12:16 PM EST Occupational Therapy Note 01/13/21 1214 OT Time and Intention Document Type contact Total Minutes, Occupational Therapy 0 Comment, Session Not Performed Order received. Chart reviewed. Spoke with both RN and PT. No acute OT needs. Pt mobilizing independently/supervised, and managing own ADLs. Will sign off. Mahogany Ferreira OTR Pager [phone] * Nilsa Goldstein MD - 01/13/2021 10:45 AM EST Inpatient Cardiology Progress Note Patient Name: Rolo Aguilar Responsible Attending: Jose Anand MD EP Attending: Nilsa Goldstein MD Reason for continued hospitalization: Evaluation and management of pericardial effusion post ablation Active Problems: Active Hospital Problems Diagnosis ??? SVT (supraventricular tachycardia) Added automatically from request for surgery [id number] ??? PAF (paroxysmal atrial fibrillation) Added automatically from request for surgery [id number] ??? H/O cardiac radiofrequency ablation Resolved Hospital [...] HR: SR 70-100 with intermittent SVT/ atrial yswejehhvun994-618 bpm. Meds: Scheduled Meds: ??? metoprolol tartrate [...] Neuro- A&Ox3 Lab Comments: Recent Labs 01/13/21 0501/12/21 0819 01/11/21 0740 WBC 11.5* 19.3* 13.2* [...] 1 month after Zio. Maria M Hercules, OIL WELL DRILLING MANAGER 01/13/2021 Pager: [phone] Addendum Stable, overall condition appears to have improved Likely ready for discharge soon with outpatient follow up NILSA GOLDSTEIN MD * Tess Santiago RN - 01/12/2021 6:56 PM EST Patient's [...] Note: Added automatically from request for surgery [id number] ??? Bipolar disorder ??? PAF (paroxysmal atrial fibrillation) Overview Note: Added automatically from request for surgery [id number] ??? Flutter-fibrillation ??? H/O cardiac radiofrequency ablation ??? Coronary disease Overview Note: ?? 2017: STEMI. PCI of OM1. EF 60%. Many ER visits to [facility] after this. ??? Heart palpitations ??? Obesity [...] EKG - sinus rhythm rate 96 bpm. WI 154ms, QRS 94ms, QT 354 ms, QTc [...] Dr. Escobar for results. Maria M Hercules, OIL WELL DRILLING MANAGER 01/12/2021 Pager: [phone] Cardiac Electrophysiology Attending This patient was seen [...] (WRVU 11.47) performed by Colt Hewitt MD Critical access hospital MAIN OR ??? PRO UNLISTED LAPAROSCOPIC PX LVR N/A 07/21/2018 LAPAROSCOPIC LIVER BIOPSY (WRVU 16.52) performed by Colt Hewitt MD at [facility] MAIN OR ??? PRO UPPER GI ENDOSCOPY, BIOPSY N/A 12/29/2017 UPPER GASTROINTESTINAL ENDOSCOPY,WITH BIOPSY SINGLE OR MULTIPLE (WRVU 2.49) performed by Yusuf Tucker MD at [facility] ENDOSCOPY ??? PRO UPPER GI ENDOSCOPY, DIAGNOSTIC N/A 12/29/2017 EGD, UPPER GI ENDOSCOPY performed by Yusuf Tucker MD at [facility] ENDOSCOPY ??? TONSILLECTOMY Active Non-Hospital Problems Diagnosis ??? Bipolar disorder ??? Flutter-fibrillation ??? Coronary disease ??? Heart palpitations ??? Obesity ??? Essential hypertension Social History: Pt resides with and mother in a house with 5 stairs to enter with L sided railing. Pt has a flt to basement where he resides with L sided railing. 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 Precautions/Special Considerations: Fall risk, lobato,chest tube,PIV,significant pain [...] recommendations discussed with nursing. Assessment: Rolo Rashaun HarmonIsaac was seen today for physical therapy evaluation. [...] Physical Therapy: 40 Macey Alarcon, PT Pager: [phone] Physical Therapy Inpatient Rehabilitation Department * Mark [...] Will continue to follow. Mark Anthony Barrera OTR/L Pager: [phone] * Jose Anand MD - 01/12/2021 7:00 [...] MAGNESIUM -- -- 0.63* Recent Labs 01/10/21 215 INR 1.4 [...] per Dr. Dominguez. Jose Anand MD, MPH, RPVI, [facility] Pager [phone] [facility] ManagerInformation [place] [address] * Nayan William RN - 01/12/2021 6:15 AM EST Loss of arterial line overnight. MD notified. Line d/c'd by FLAVIA Gregory, pressure held by this staff writer. Non-invasive BP remains WNL. Pain and [...] that he had been found to havea zyxuf-ft-qanumvoa size pericardial effusion on echocardiogram during the [...] examined this patient and discussed with the technology intern, resident, fellow. I have personally reviewed the echocardiogram (initial and repeat) and discussed with Fadi Escobar from EP. While no clear evidence of tamponade, we will tap and leave drain in for fluid. Hold anticoagulation fornow. Judy Tijerina MD, Robinson, [facility] Cardiology Attending ID: Rolo Aguilar is [...] (407 lb 3.2 oz) Labs Recent Labs 01/10/212154 WBC 16.1* HGB 13.5* HCT 41.1 PLATELET 253 Recent Labs 01/10/212154 NA 138 K 4.3 CL 107 CO2 18* BUN 15 CREATININE 0.89 Recent Labs 01/10/212154 AST 46* ALT 40 ALKPHOS 51 BILITOT 0.5 BILIDIR 0.2 Recent Labs 01/10/212154 CALCIUM 8.1* MAGNESIUM 0.63* Recent Labs 01/10/212154 INR 1.4 PT [...] room. 01/11/2021: 0220: Verbal [facility] nurse[facility]ami. Plans for transport per protocol on monitor withnurse assist. 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 He was awakened from anesthesia, extubated and [...] ventricular segmental wall motion abnormalities present at [facility] inferolateral wall, as coded in the diagram [...] tachycardia) Added automatically from request for surgery [id number] ??? Bipolar disorder ??? PAF (paroxysmal atrial fibrillation) Added automatically from request for surgery [id number] ??? Flutter-fibrillation ??? H/O cardiac radiofrequency ablation ??? Coronary disease ?? 2017: STEMI. PCI of OM1. EF 60%. Many ER visits to [facility] after this. ??? Heart palpitations ??? Obesity [...] PLAN: Admit to Cardiology, M1S1 Team Pager #[phone] #Post-Procedural Hypotension #Atrial Flutter s/p ablation #Hx [...] examined this patient and discussed with the technology intern, resident, fellow. Judy Tijerina MD, Robinson, FACC Cardiology Attending * Fadi Escobar MD - 01/10/2021 10:24 AM EST Interval History and Physical Exam: Planned Procedure [facility] CARDIAC ELECTROPHYSIOLOGY LABORATORIES HISTORY OF PRESENT ILLNESS: Rolo Aguilar is a 50 y.o. man old gentleman referred by??Jose Culver MD, for several recent manifestly symptomatic cardiac dysrhythmias. Mr. Aguilar had presented on April 27 to the Emergency Department in [facility] with an episode of supraventricular tachycardia (SVT) [...] (WRVU 11.47) performed by Colt Hewitt MD Critical access hospital MAIN OR ??? PRO UNLISTED LAPAROSCOPIC PX LVR N/A 07/21/2018 LAPAROSCOPIC LIVER BIOPSY (WRVU 16.52) performed by Colt Hewitt MD at [facility] MAIN OR ??? PRO UPPER GI ENDOSCOPY, BIOPSY N/A 12/29/2017 UPPER GASTROINTESTINAL ENDOSCOPY,WITH BIOPSY SINGLE OR MULTIPLE (WRVU 2.49) performed by Yusuf Tucker MD at [facility] ENDOSCOPY ??? PRO UPPER GI ENDOSCOPY, DIAGNOSTIC N/A 12/29/2017 EGD, UPPER GI ENDOSCOPY performed by Yusuf Tucker MD at [facility] ENDOSCOPY ??? TONSILLECTOMY Accessory Clinical Findings: Laboratory [...] Procedure Note: Patient Name: Rolo Aguilar : [id number] MR#: [id number] Case Date: 01/11/2021 Inserting Operator: Surgeon(s) and Role: * Erich Amato MD - Primary * Rachana Silver DO - Fellow Preoperative diagnosis: Pericardial drain placement Postoperative diagnosis: * Pre-tamponade * Procedure(s) performed: Pericardiocentesis Pericardial drain placement Access: Apical chest wall, just below the left breast; six [place] pigtail. A time-out was conducted prior to [...] spouse would be surrogate decision maker per [place] surrogate decision making law. (Only good for 90 days) Any patient receiving care at [facility] must abide by [place] law. The hierarchy for surrogate decision making [...] (i) The agent with financial power of attorney recruiter or a conservator appointed in accordance with RSA 464-A. (j) The guardian of the patient???s estate. Current Functional Ability: Current Functional Status: Independent Functional Status Prior to Admission: Prior Functional Status: Independent Home Environment: People in Home: spouse. Living Arrangements: house. Current DME: None DME Needed at DC: None Home Address Listed as: [address] [place] [address] Social & Family Supports: Extended Emergency Contact Information Primary Emergency Contact: IsaacAutumn Address: [address] [place] [address] [facility] Mobile Relation: Spouse Secondary Emergency Contact: Whitney Piedra Address: [address] [place] [address] [facility] Relation: Sibling Community Resources being [...] Insurance: N/A Prescription Coverage: yes Preferred Pharmacy: [facility]/pharmacy #[id number] - [place] - [address] [place] [address] [facility] - [place] [address] [facility] [address] [facility] [address] [place] [address] [facility] [address] [id number] - [place] [address] [facility] [address] [facility] [address] Primary Care Provider: Bin Bowman MD [phone] Patient/Caregiver Goals of Treatment: DC home Potential [...] of care planning. Chanell Fatima RN, MSN, inside sales assistant Office of Care Management Pager: [phone] Work * Brief Op Note - Fadi Escobar MD - 01/10/2021 7:27 PM EST Brief Operative Note Patient Name: Rolo Aguilar : [id number] MR#: [id number] Case Date: 01/10/2021 Surgeon: Surgeon(s) and Role: Panel 1: * Fadi Escobar MD - Primary * George Brar MD - Fellow Panel 2: * Jose Anadn MD - Primary Preoperative diagnosis: SVT (supraventricular [...] were issues with initial functionality of the revoPT data acquisiton system, the EP-4 stimulator, and the lateral [employer] fluoroscopic camera. Reconfigurations, engaging with technical support, [...] rate of 2500 units/hour. The short 8 Russian sheaths in the right femoral vein were [...] of 1110 milliseconds (ms) were as follows: WI: 180 ms (P wave duration 140 ms) QRS: 100 ms QT: 480 ms 2) Atrial overdrive pacing was accomplished from the proximal-most bipole in the coronary sinus (CS), and the atrioventricular (AV) Wenckebach block CL was observed at 410 ms. There was no pre-excitation or conduction aberrancy identified. 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 Left Atrial Anatomy and Mapping: A [employer] ThermoCool SF 8 Fr ablation catheter with [...] [place] a [place] [address] Joules during minutes:seconds of actual ablation time, [...] (and/or limitations of familiarity) with the recently installed[employer] mapping system. Mitral Annular Flutter Induction, Mapping, [...] Dose: 681 mGy Total Radiofrequency Energy Delivered: 824486 Joules Total Actual Ablation Time: 50:31 m:s [...] revealed that he had developed a s emxu-cw-mypfgtfe effusion with restricted filling (though not overt right atrial collapse). A pericardiocentesis subsequently was performed with a 300 cc of bloody fluid removed (please see separte report by Erich Amato MD), and the blood pressure reverted to baseline values; a 6 Russian pericardial drain was placed, but there was no significant fluid reaccumulation. documented in this encounter Plan of Treatment Upcoming Encounters Date Type Department Care Team (Latest Contact Info) Description 06/07/2024 2:00 PM EDT Office [place] [address] Joan Castro MD [facility] [place] [address] 06/11/2024 1:03 PM EDT Hospital Encounter [place] [phone] Rachel Carrasco MD [facility] [place] [address] 06/11/2024 1:03 PM EDT - 06/11/2024 1:58 PM EDT Surgery Main Operating Room [place] [phone] Rachel Carrasco MD [facility] [place] [address] CYSTO, REMOVAL OF STENT, FOREIGN BODY OR CALCULUS, SIMPLE (WRVU 2.81) 06/23/2024 10:00 AM EDT Office Visit Cardiology at [address] [address] Nilsa Goldstein MD [facility] [place] [address] Pending Results Name Type Priority Associated Diagnoses [...] EST LACTATE, WHOLE BLOOD, SEND TO LAB ([facility]) STAT 01/11/2021 2:05 AM EST EKG 12-LEAD [...] 01/10/2021 4:20 PM EST RAPID COVID-19 PCR ([facility]) Routine 01/10/2021 12:32 PM EST documented in this encounter Results * ECHO COMPLETE (01/13/2021 11:03 AM EST) Anatomical Region Laterality Modality Other 01/13/2021 Narrative 01/13/2021 11:38 AM EST Procedure: ?Transthoracic Echocardiogram Patient: ?ISAAC Rodney ?(Age): 1970(50y) Med Rec#: ? [id number] ?Sex: ?M ? Site Loc: ? [facility] ?Ht / Wt: ??168(cm)/198(kg) Pt. Loc: ?Adult Floor ? BSA: ?2.79 Study Date: ?? 01/13/2021 ?Pt. Type: Inpatient Tape: ? Referring: Jose Anand ??([id number]) Reading: Joss De Anda ([id number]) Supervisor Orchard: Shahriar Juan RDCS, L[place] Diagnosis: *Pericardial effusion [...] Vmax ?0.94 ? m/sec ? MV deceleration ioow366.49 ? msec ? MV A-wave Vmax ?0.66 [...] ? Mid-Inferior ?Normal ? Mid-Inferoseptal ?Normal ? [place]-Septal ? Normal ? [place]-Anterior ? Normal ? [place]-Lateral ?Normal ? [place]-Inferior ? Normal ? [place]-Tip ?Normal ? This report has been electronically signed by: Joss De Anda MD ? 01/13/2021 11:37:34 Images reviewed and interpretation verified [facility] Cardiac Ultrasound Laboratory Procedure Note Joss De Anda MD - 01/13/2021 Procedure: Transthoracic Echocardiogram Patient: ISAAC Rodney (Age): 1970(50y) Med Rec#: [id number] Sex: M Site Loc: [facility] Ht / Wt: 168(cm)/198(kg) Pt. Loc: Adult Floor BSA: 2.79 Study Date: 01/13/2021 Pt. Type: Inpatient Tape: Referring: Jose Anand ([id number]) Reading: Joss De Anda ([id number]) Supervisor Orchard: Shahriar Juan RDCS, FASE Diagnosis: *Pericardial effusion [...] MV E-wave Vmax 0.94 m/sec MV deceleration vmui773.49 msec MV A-wave Vmax 0.66 m/sec MV [...] Normal Mid-Posterolateral Normal Mid-Inferior Normal Mid-Inferoseptal Normal [place]-Septal Normal [place]-Anterior Normal [place]-Lateral Normal [place]-Inferior Normal [place]-Tip Normal This report has been electronically signed by: Joss De Anda MD 01/13/2021 11:37:34 Images reviewed and interpretation verified [facility] Cardiac Ultrasound Laboratory Jose Anand MD ECHO ORDERABLES * EKG 12 Lead (01/13/2021 8:06 AM EST) Ventricular rate 141 BPM MUSE SYSTEM Atrial Rate 141 BPM MUSE SYSTEM P-R Interval 146 ms MUSE SYSTEM QRS Duration 94 ms MUSE SYSTEM Q-T Interval 266 ms MUSE SYSTEM QTC Calculated (Bezet) 407 ms MUSE SYSTEM Calculated P [place] 55 degrees MUSE SYSTEM Calculated R [place] 28 degrees MUSE SYSTEM Calculated T [place] 54 degrees MUSE SYSTEM INTERPRETATION Sinus tachycardia Low voltage QRS Possible Inferior infarct (cited on or before 13-JAN-2021) Abnormal ECG When compared with ECG of 12-JAN-2021 00:07, Diffuse ST-elevations have resolved, and there are now diffuse TWI, consistent with resolving pericarditis Confirmed by MD De Anda Daniel ([id number]) on 01/13/2021 12:29:23 PM MUSE SYSTEM 01/13/2021 8:06 AM EST 01/13/2021 12:29 PM EST Jose Anand MD ECG ORDERABLES MUSE SYSTEM * (ABNORMAL) Differential, Automated (01/13/2021 5:30 AM EST) Neutrophils % 71.0 % [facility] Neutr Abs (ANC) 8.18(H) 1.70 - 6.10 x10(3)/[facility] LABORATORY Lymphocytes % 16.6 % [facility] Lymphocytes Abs 1.9 0.9 - 3.2 x10(3)/[facility] LABORATORY Monocytes % 10.7 % [facility] Monocyte Abs 1.2(H) 0.3 - 0.9 x10(3)/[facility] LABORATORY Eosinophils % 0.5 % [facility] Eosinophils Abs 0.1 0.0 - 0.4 x10(3)/[facility] LABORATORY Basophils % 0.3 % [facility] Basophils Abs 0.0 0.0 - 0.1 x10(3)/[facility] LABORATORY Immature Gran % 0.90 % [facility] Comment: Immature granulocytes(IG's)percentage and absolute count will include metamyelocytes, myelocytes, and promyelocytes. Blood smears from CBCs yielding IG's will be scanned manually for concordance. If this scan disagrees with the automated IG or if promyelocytes are noted, a manual differential will be performed. Amy Gran Abs 0.10(H) 0.00 - 0.04 x10(3)/[facility] LABORATORY Blood specimen (specimen) 01/13/2021 5:30 AM EST 01/13/2021 5:44 AM EST Narrative Resulting Agency Comment Spec In Lab Harini Jansen MD HEMATOLOGY ORDERABLE S [facility] [place] [address] * (ABNORMAL) Hemogram (01/13/2021 5:30 AM EST) WBC 11.5(H) 4.0 - 9.5 x10(3)/[facility] LABORATORY RBC 4.11(L) 4.58 - 5.54 x10(6)/[facility] LABORATORY Hemoglobin 11.4(L) 13.7 - 16.5 gm/dL [facility] Hematocrit 35.1(L) 40.5 - 48.5 % [facility] MCV 85.4 82.9 - 93.1 [facility] LABORATORY MCH 27.7 27.5 - 32.1 pg [facility] MCHC 32.5 32.0 - 35.7 gm/dL [facility] [facility] Platelets 122(L) 145 - 357 x10(3)/[facility] LABORATORY RDWSD 44.7 36.0 - 45.0 [facility] LABORATORY RDWCV 14.6(H) 11.4 - 13.8 % [facility] LAB[facility]ATORY MPV 10.6 7.6 - 12.9 [facility] LABORATORY nRBC % Auto 0.0 % [facility] LABORATORY nRBC Abs Auto 0.000 0.000 - 0.000 x10(3)/[facility] LABORATORY Blood specimen (specimen) 01/13/2021 5:30 AM EST 01/13/2021 5:44 AM EST Narrative Resulting Agency Comment Spec In Lab Harini Jansen MD HEMATOLOGY ORDERABLE S [facility] [place] [address] * Magnesium (01/13/2021 5:30 AM EST) Magnesium 0.92 0.69 - 1.07 mmol/L [facility] Blood specimen (specimen) 01/13/2021 5:30 AM EST 01/13/2021 5:45 AM EST Narrative Resulting Agency Comment Spec In Lab Jose Anand MD CHEMISTRY ORDERABLES Performing Organization Address City/State/[facility] Co de Phone Number [facility] [place] [address] * (ABNORMAL) BMP w/fasting Glucose (01/13/2021 5:30 AM EST) Glucose Fasting 92 65 - 99 mg/dL [facility] Comment: ?Fasting* Glucose Interpretive [...] of Diabetes Mellitus, Position Statement from the [place] [employer]. ??Diabetes Care, Volume 33, Supplement 1, Nov 2009 BUN 14 10 - 20 mg/dL [facility] Creatinine 0.83 0.80 - 1.50 mg/dL [facility] Sodium 135 135 - 145 mmol/L [facility] Potassium 3.8 3.5 - 5.0 mmol/L [facility] Comment: result rechecked- Please note: ??Patients with WBC >100,000 may have falsely elevated Potassium levels. ??For accurate Potassium quantification in these patients send serum separator tube (gold top) for subsequent determinations. ??Contact the Clinical Chemistry Laboratory if there are any questions. Chloride 103 98 - 107 mmol/L [facility] CO2 22 22 - 31 mmol/L [facility] Anion Gap 10 5 - 15 mmol/L [facility] Calcium 8.2(L) 8.5 - 10.5 mg/dL [facility] Estimated GFR 102 >=60 mL/min/1. 73 m?? [facility] Comment: This patient? [...] Tijerina MD CHEMISTRY ORDERABLES Performing Organization Address City/State/[facility] Co de Phone Number [facility] [place] [address] * ECHO LMTD W/O CONTRAST W LMTD SPEC DOPP (01/12/2021 11:08 AM EST) EF 70 HEARTLAB SYSTEM Anatomical Region Laterality Modality Other 01/12/2021 Narrative 01/12/2021 11:42 AM EST Procedure: ?Transthoracic Echocardiogram Patient: ?ISAAC SHERWOOD Rashaun ?(Age): 1970(50y) Med Rec#: ? [id number] ?Sex: ?M ? Site Loc: ? [facility] ?Ht / Wt: ??168(cm)/198(kg) Pt. Loc: ?Adult Floor ? BSA: ?2.79 Study Date: ?? 01/12/2021 ?Pt. Type: Inpatient Tape: ? Referring: Thor Wills ([id number]) Referring: Judy Tijerina Reading: Roxana Mesa ([id number]) Supervisor Orchard: Willie Dugan [facility] Supervisor Orchard 2: Suzy Randolph Diagnosis: *Pericardial effusion (noninflammatory) [...] ? Mid-Inferior ?Normal ? Mid-Inferoseptal ?Normal ? [place]-Septal ? Normal ? [place]-Anterior ? Normal ? [place]-Lateral ?Normal ? [place]-Inferior ? Normal ? [place]-Tip ?Normal ? This report has been electronically signed by: Roxana Mesa MD ? 01/12/2021 11:42:18 Images reviewed and interpretation verified [facility] Cardiac Ultrasound Laboratory Procedure Note Roxana Mesa MD - 01/12/2021 Procedure: Transthoracic Echocardiogram Patient: ISAAC Rodney (Age): 1970(50y) Med Rec#: [id number] Sex: M Site Loc: [facility] Ht / Wt: 168(cm)/198(kg) Pt. Loc: Adult Floor BSA: 2.79 Study Date: 01/12/2021 Pt. Type: Inpatient Tape: Referring: Thor Wills ([id number]) Referring: Judy Tijerina Reading: Roxana Mesa ([id number]) Supervisor Orchard: Willie Dugan [facility] Supervisor Orchard 2: Suzy Randolph Diagnosis: *Pericardial effusion (noninflammatory) [...] Normal Mid-Posterolateral Normal Mid-Inferior Normal Mid-Inferoseptal Normal [place]-Septal Normal [place]-Anterior Normal [place]-Lateral Normal [place]-Inferior Normal [place]-Tip Normal This report has been electronically signed by: Roxana Mesa MD 01/12/2021 11:42:18 Images reviewed and interpretation verified [facility] Cardiac Ultrasound Laboratory Judy Tijerina MD ECHO ORDERABLES * Scan, Peripheral Blood (01/12/2021 8:19 AM EST) Plat Estimate Normal [facility] RBC Morphology Abnormal [facility] Ovalocytes 1-5 /HPF [facility] Claritza Cells 1-5 /HPF [facility] Vacuolated Neut Present [facility] Blood specimen (specimen) 01/12/2021 8:19 AM EST 01/12/2021 8:36 AM EST Narrative Resulting Agency Comment Spec In Lab Harini Jansen MD HEMATOLOGY ORDERABLE S [facility] [place] [address] * (ABNORMAL) Differential, Automated (01/12/2021 8:19 AM EST) Pathologist [facility] Neutrophils % 71.6 % [facility] Neutr Abs (ANC) 13.82(H) 1.70 - 6.10 x10(3)/mc L [facility] Lymphocytes % 7.9 % [facility] Lymphocytes Abs 1.5 0.9 - 3.2 x10(3)/[facility] LABORATORY Monocytes % 8.4 % [facility] Monocyte Abs 1.6(H) 0.3 - 0.9 x10(3)/ L [facility] Eosinophils % 11.3 % [facility] Eosinophils Abs 2.2(H) 0.0 - 0.4 x10(3)/mc L [facility] Basophils % 0.2 % [facility] Basophils Abs 0.0 0.0 - 0.1 x10(3)/mc L [facility] Immature Gran % 0.60 % [facility] Comment: Immature granulocytes(IG's)percentage and absolute count will include metamyelocytes, myelocytes, and promyelocytes. Blood smears from CBCs yielding IG's will be scanned manually for concordance. If this scan disagrees with the automated IG or if promyelocytes are noted, a manual differential will be performed. Amy Gran Abs 0.12(H) 0.00 - 0.04 x10(3)/ L [facility] Blood specimen (specimen) 01/12/2021 8:19 AM EST 01/12/2021 8:36 AM EST Narrative Resulting Agency Comment Spec In Lab Harini Jansen MD HEMATOLOGY ORDERABLE S [facility] [place] [address] * (ABNORMAL) Hemogram (01/12/2021 8:19 AM EST) WBC 19.3(H) 4.0 - 9.5 x10(3)/[facility] LABORATORY RBC 4.48(L) 4.58 - 5.54 x10(6)/[facility] LABORATORY Hemoglobin 12.5(L) 13.7 - 16.5 gm/dL [facility] Hematocrit 38.9(L) 40.5 - 48.5 % [facility] MCV 86.8 82.9 - 93.1 [facility] LABORATORY MCH 27.9 27.5 - 32.1 pg [facility] MCHC 32.1 32.0 - 35.7 gm/dL [facility]OR[facility] Platelets 179 145 - 357 x10(3)/[facility] RDWSD 46.8(H) 36.0 - 45.0 [facility] LABORATORY RDWCV 14.8(H) 11.4 - 13.8 % [facility]AT[facility] MPV 9.9 7.6 - 12.9 [facility] LABORATORY nRBC % Auto 0.0 % [facility] LABORAT[facility] nRBC Abs Auto 0.000 0.000 - 0.000 x10(3)/[facility] LABORATORY Blood specimen (specimen) 01/12/2021 8:19 AM EST 01/12/2021 8:36 AM EST Narrative Resulting Agency Comment Spec In Lab Harini Jansen MD HEMATOLOGY ORDERABLE S Performing Organization Address City/[facility] Co de Phone Number [facility] [place] [address] * Magnesium (01/12/2021 3:55 AM EST) Magnesium 0.95 0.69 - 1.07 mmol/L [facility] Comment:result rechecked-peg Blood specimen (specimen) Venous Draw / Unknown 01/12/2021 3:55 AM EST 01/12/2021 4:03 AM EST Narrative Resulting Agency Comment Spec In Lab Harini Jansen MD CHEMISTRY ORDERABLES Performing Organization Address [facility] Co de Phone Number [facility] [place] [address] * (ABNORMAL) BMP w/fasting Glucose (01/12/2021 3:55 AM EST) Glucose Fasting 126(H) 65 - 99 mg/dL [facility] Comment: ?Fasting* Glucose Interpretive [...] of Diabetes Mellitus, Position Statement from the [place] [employer]. ??Diabetes Care, Volume 33, Supplement 1, Nov 2009 BUN 18 10 - 20 mg/dL [facility] Creatinine 0.91 0.80 - 1.50 mg/dL [facility] Sodium 135 135 - 145 mmol/L [facility] Potassium 5.0 3.5 - 5.0 mmol/L [facility] Comment: Please note: ??Patients with WBC >100,000 may have falsely elevated Potassium levels. ??For accurate Potassium quantification in these patients send serum separator tube (gold top) for subsequent determinations. ??Contact the Clinical Chemistry Laboratory if there are any questions. Chloride 104 98 - 107 mmol/L [facility] CO2 22 22 - 31 mmol/L [facility] Anion Gap 9 5 - 15 mmol/L [facility] Calcium 8.2(L) 8.5 - 10.5 mg/dL [facility] Estimated GFR 97 >=60 mL/min/1. 73 m?? [facility] Comment: This patient? [...] In Lab Judy Tijerina MD CHEMISTRY ORDERABLES [facility] [place] [address] * EKG 12 Lead (01/12/2021 12:07 AM EST) Ventricular rate 96 BPM MUSE SYSTEM Atrial Rate 96 BPM MUSE SYSTEM P-R Interval 154 ms MUSE SYSTEM QRS Duration 94 ms MUSE SYSTEM Q-T Interval 354 ms MUSE SYSTEM QTC Calculated (Bezet) 447 ms MUSE SYSTEM Calculated P [place] 44 degrees MUSE SYSTEM Calculated R [place] 16 degrees MUSE SYSTEM Calculated T [place] 23 degrees MUSE SYSTEM INTERPRETATION Normal sinus rhythm Diffuse ST elevation, consider early repolarization, pericarditis, or injury Abnormal ECG When compared with ECG of 11-JAN-2021 06:29, Acute pericarditis is suspected. I personally reviewed the tracing and edited the fellows interpretation Confirmed by fellow Fernandez Higuera ([id number]) on 01/12/2021 9:35:13 AM Confirmed by Vini Chanel ([id number]) on 01/12/2021 5:29:51 PM MUSE SYSTEM 01/12/2021 12:0 7 AM EST 01/12/2021 5:29 PM EST Judy Tijerina MD ECG ORDERABLES MUSE SYSTEM * CARDIAC CATHETERIZATION (01/11/2021 2:33 PM EST) Anatomical Region Laterality Modality Other Narrative 01/11/2021 2:49 PM EST ?[facility] ? Cardiac Catheterization/Intervention Report ? Patient Name: Rolo Aguilar ? Procedure Date: 01/11/2021 ? A #: [id number] ? Primary Physician: Genesis, Erich T ? Case #: [id number] ? File Name: [id number] ? Catheterization Order Number: [id number] ? [facility] ? Final Report [place], [place] ? Patient Name: ? Rolo M Isaac ? ID#: ?[id number] ? : ?1970 ? Procedure Date: ? January 11, 2021 ?Case #: ? [id number] ? Room: ? 5 ? Case Physician: ? Erich T Genesis, M.D. ?Start: ?14:10 ?Fellow: ? Rachana Silver [...] Genesis, M.D. ? Electronically Signed by: Erich Mishra Genesis, M.D. ? Report Finalized: 01/11/2021 ??14:44 ? Procedure Note Erich Amato MD - 01/11/2021 [facility] Cardiac Catheterization/Intervention Report Patient Name: Rolo Aguilar Procedure Date: 01/11/2021 A #: [id number] Primary Physician: Erich Amato Case #: [id number] File Name: [id number] Catheterization Order Number: [id number] [facility] FinalReport [place], [place] Patient Name: Rolo Aguilar ID#:[id number] :1970 Procedure Date: January 11, 2021 Case [...] * Lactate, whole blood, send to lab ([facility]) (01/11/2021 1:10 PM EST) Lactate WB 2.1 0.5 - 2.2 mmol/L [facility] Blood specimen (specimen) 01/11/2021 1:10 PM EST 01/11/2021 1:25 PM EST Narrative Resulting Agency Comment Spec In Lab Judy Tijerina MD CHEMISTRY ORDERABLES [facility] [place] [address] * ECHO COMPLETE W CONTRAST (01/11/2021 10:21 AM EST) EF 63 HEARTLAB SYSTEM Anatomical Region Laterality Modality Other 01/11/2021 Narrative 01/11/2021 11:10 AM EST Procedure: ?Transthoracic Echocardiogram Patient: ?ISAAC SHERWOOD M ?(Age): 1970(50y) Med Rec#: ? [id number] ?Sex: ?M ? Site Loc: ? [facility] ?Ht / Wt: ??167(cm)/185(kg) Pt. Loc: ?Adult Floor ? BSA: ?2.7 Study Date: ?? 01/11/2021 ?Pt. Type: Inpatient Tape: ? Referring: Rayo Bianchi ([id number]) Reading: Khurram Barillas ([id number]) Supervisor Orchard: Viola Moore Supervisor Orchard 2: Humza Wilson ([id number]) Interpreting Fellow: Humza Wilson ([id number]) Diagnosis: *Supraventricular tachycardia (I47.1) *1 vial Optison [...] Vmax ?0.52 ? m/sec ? MV deceleration wuaw967.21 ? msec ? MV A-wave Vmax ?0.41 [...] ? Mid-Inferior ?Normal ? Mid-Inferoseptal ?Normal ? [place]-Septal ? Normal ? [place]-Anterior ? Normal ? [place]-Lateral ?Normal ? [place]-Inferior ? Normal ? [place]-Tip ?Normal ? This report has been electronically signed by: Khurram Barillas MD ? 01/11/2021 11:04:46 Images reviewed and interpretation verified [facility] Cardiac Ultrasound Laboratory Procedure Note Khurram Barillas MD - 01/11/2021 Procedure: Transthoracic Echocardiogram Patient: ISAAC Rodney (Age): 1970(50y) Med Rec#: [id number] Sex: M Site Loc: [facility] Ht / Wt: 167(cm)/185(kg) Pt. Loc: Adult Floor BSA: 2.7 Study Date: 01/11/2021 Pt. Type: Inpatient Tape: Referring: Rayo Bianchi ([id number]) Reading: Khurram Barillas ([id number]) Supervisor Orchard: Viola Moore Supervisor Orchard 2: Humza Wilson ([id number]) Interpreting Fellow: Humza Wilson ([id number]) Diagnosis: *Supraventricular tachycardia (I47.1) *1 vial Optison [...] MV E-wave Vmax 0.52 m/sec MV deceleration epnq745.21 msec MV A-wave Vmax 0.41 m/sec MV [...] Normal Mid-Posterolateral Normal Mid-Inferior Normal Mid-Inferoseptal Normal [place]-Septal Normal [place]-Anterior Normal [place]-Lateral Normal [place]-Inferior Normal [place]-Tip Normal This report has been electronically signed by: Khurarm Barillas MD 01/11/2021 11:04:46 Images reviewed and interpretation verified [facility] Cardiac Ultrasound Laboratory Rayo Bianchi MD [...] ? Electronically signed by: Tashia Hairston MD, [facility] ([phone]), at 01/11/2021 10:36 AM Narrative 01/11/2021 10:36 [...] below. Electronically signed by: Tashia Hairston MD, [facility]([phone]), at 01/11/2021 10:36 AM Rayo Bianchi MD IMG DX ORDERABLES * POCT Glucose (01/11/2021 7:45 AM EST) [facility] POC Glucose 136 65 - 199 mg/dL [facility] Comment: Supplemental ranges: <140 mg/dL before meals <180 mg/dL all other times of the day Blood specimen (specimen) 01/11/2021 7:45 AM EST 01/11/2021 7:45 AM EST Judy Tijerina MD POINT OF CARE TEST O RDERABLES Performing Organization Address City/State/[facility] Co de Phone Number [facility] [place] [address] * (ABNORMAL) Differential, Automated (01/11/2021 7:40 AM EST) [facility] Neutrophils % 85.3 % [facility] Neutr Abs (ANC) 11.24(H) 1.70 - 6.10 x10(3)/mc L [facility] Lymphocytes % 8.5 % [facility] Lymphocytes Abs 1.1 0.9 - 3.2 x10(3)/mc L [facility] Monocytes % 5.5 % [facility] Monocyte Abs 0.7 0.3 - 0.9 x10(3)/mc L [facility] Eosinophils % 0.0 % [facility] Eosinophils Abs 0.0 0.0 - 0.4 x10(3)/mc L [facility] Basophils % 0.1 % [facility] Basophils Abs 0.0 0.0 - 0.1 x10(3)/mc L [facility] Immature Gran % 0.60 % [facility] Comment: Immature granulocytes(IG's)percentage and absolute count will include metamyelocytes, myelocytes, and promyelocytes. Blood smears from CBCs yielding IG's will be scanned manually for concordance. If this scan disagrees with the automated IG or if promyelocytes are noted, a manual differential will be performed. Amy Gran Abs 0.08(H) 0.00 - 0.04 x10(3)/[facility] LABORATORY Blood specimen (specimen) 01/11/2021 7:40 AM EST 01/11/2021 7:58 AM EST Narrative Resulting Agency Comment Spec In Lab Harini Jansen MD HEMATOLOGY ORDERABLE S [facility] [place] [address] * (ABNORMAL) Hemogram (01/11/2021 7:40 AM EST) WBC 13.2(H) 4.0 - 9.5 x10(3)/[facility] LABORATORY RBC 4.87 4.58 - 5.54 x10(6)/[facility] LABORATORY Hemoglobin 13.7 13.7 - 16.5 gm/dL [facility] Hematocrit 42.2 40.5 - 48.5 % [facility] MCV 86.7 82.9 - 93.1 fL [facility] MCH 28.1 27.5 - 32.1 pg [facility] MCHC 32.5 32.0 - 35.7 gm/dL [facility] Platelets 224 145 - 357 x10(3)/[facility] LABORATORY RDWSD 45.8(H) 36.0 - 45.0 fL [facility] RDWCV 14.3(H) 11.4 - 13.8 % [facility] MPV 10.7 7.6 - 12.9 fL [facility] nRBC % Auto 0.0 % [facility] nRBC Abs Auto 0.000 0.000 - 0.000 x10(3)/mcL [facility] Blood specimen (specimen) 01/11/2021 7:40 AM EST 01/11/2021 7:58 AM EST Narrative Resulting Agency Comment Spec In Lab Harini Jansen MD HEMATOLOGY ORDERABLE S [facility] [place] [address] * (ABNORMAL) BMP w/fasting Glucose (01/11/2021 7:40 AM EST) Glucose Fasting 155(H) 65 - 99 mg/dL [facility] Comment: ?Fasting* Glucose Interpretive [...] of Diabetes Mellitus, Position Statement from the [place] [employer]. ??Diabetes Care, Volume 33, Supplement 1, Nov 2009 BUN 15 10 - 20 mg/dL [facility] Creatinine 0.86 0.80 - 1.50 mg/dL [facility] Sodium 134(L) 135 - 145 mmol/L [facility] Potassium 4.9 3.5 - 5.0 mmol/L [facility] Comment: Please note: ??Patients with WBC >100,000 may have falsely elevated Potassium levels. ??For accurate Potassium quantification in these patients send serum separator tube (gold top) for subsequent determinations. ??Contact the Clinical Chemistry Laboratory if there are any questions. Chloride 104 98 - 107 mmol/L [facility] CO2 19(L) 22 - 31 mmol/L [facility] Anion Gap 11 5 - 15 mmol/L [facility] Calcium 8.1(L) 8.5 - 10.5 mg/dL [facility] Estimated GFR 100 >=60 mL/min/1. 73 m?? [facility] Comment: This patient? [...] Tijerina MD CHEMISTRY ORDERABLES Performing Organization Address City/[facility]/ZIP Co de Phone Number [facility] [place] [address] * (ABNORMAL) Lactate, whole blood, send to lab ([facility]) (01/11/2021 7:40 AM EST) Lactate WB 2.7(H) 0.5 - 2.2 mmol/L [facility] Blood specimen (specimen) 01/11/2021 7:40 AM EST 01/11/2021 8:00 AM EST Narrative Resulting Agency Comment Spec In Lab Judy Tijerina MD CHEMISTRY ORDERABLES [facility] [place] [address] * (ABNORMAL) Hepatic Function Panel (01/11/2021 6:40 AM EST) [facility] Total Protein 5.9(L) 6.1 - 8.0 gm/dL [facility] Albumin 3.3 3.2 - 5.2 gm/dL [facility] AST 47(H) 0 - 39 unit/L [facility] ALT 40 0 - 55 unit/L [facility] Alk Phos 47 40 - 130 unit/L [facility] Total Bilirubin 0.4 0.2 - 1.3 mg/dL [facility] Bili, Direct 0.1 0.0 - 0.3 mg/dL [facility] Blood specimen (specimen) Venous Draw / Unknown 01/11/2021 6:40 AM EST 01/11/2021 6:48 AM EST Narrative Resulting Agency Comment Spec In Lab Harini Jansen MD CHEMISTRY ORDERABLES [facility] [place] [id number] * (ABNORMAL) Troponin (01/11/2021 6:40 AM EST) [facility] Troponin-T 1.06(H) 0.00 - 0.00 ng/mL [facility] Comment: The 99th percentile for Troponin T is less than 0.01 ng/mL, any detectable cTnT concentration using this assay should be considered elevated. According to the third universal definition of myocardial infarction the following criteria with a clinical presentation consistent with acute myocardial ischemia meets the diagnosis for a myocardial infarction (NC). Detection of a rise and/or fall of cTnT, with at least one value greater than the 99th percentile (> or = 0.01) and with at least one of the following ?? Symptoms of ischemia ?? New or presumed new significant WN-nlghiru-L wave (ST-T) changes or new left bundle [...] additional sample may be indicated. Reference: Third [place] Definition of Myocardial Infarction. Journal of the [place] [employer] 2012;60:1581-98 Blood specimen (specimen) 01/11/2021 6:40 AM EST 01/11/2021 6:47 AM EST Narrative Resulting Agency Comment Spec In Lab Rayo Bianchi MD CHEMISTRY ORDERABLES Performing Organization Address [facility] Co de Phone Number [facility] [place] [id number] * EKG 12 Lead (01/11/2021 6:29 AM EST) Ventricular rate 101 BPM MUSE SYSTEM Atrial Rate 101 BPM MUSE SYSTEM P-R Interval 150 ms MUSE SYSTEM QRS Duration 88 ms MUSE SYSTEM Q-T Interval 360 ms MUSE SYSTEM QTC Calculated (Bezet) 466 ms MUSE SYSTEM Calculated P [place] 46 degrees MUSE SYSTEM Calculated R [place] 47 degrees MUSE SYSTEM Calculated T [place] 29 degrees MUSE SYSTEM INTERPRETATION Sinus tachycardia Low voltage QRS Borderline ECG When compared with ECG of 11-JAN-2021 01:59, (unconfirmed) No significant change was found Confirmed by MD Alecia, Ruperto Moya ([id number]) on 01/11/2021 5:10:03 PM MUSE SYSTEM 01/11/2021 6:29 AM EST 01/11/2021 5:10 PM EST Rayo Bianchi MD ECG ORDERABLES Performing Organization Address [facility] Co de Phone Number MUSE SYSTEM * Blood culture (01/11/2021 4:51 AM EST) Blood Culture No growth at 5 days. [facility] Blood specimen (specimen) STRUCTURE OF RIGHT HAND / Unknown 01/11/2021 4:51 AM EST 01/11/2021 6:43 AM EST Comment:SET 2 Narrative Resulting Agency Comment Spec In Lab Fadi Escobar MD MICROBIOLOGY - BLOOD ORDERABLES Performing Organization Address City/[place] [facility] Co de Phone Number [facility] [place] [address] * Blood culture (01/11/2021 4:30 AM EST) Blood Culture No growth at 5 days. [facility] Blood specimen (specimen) STRUCTURE OF RIGHT HAND / Unknown 01/11/2021 4:30 AM EST 01/11/2021 6:44 AM EST Narrative Resulting Agency Comment Spec In Lab Fadi Escobar MD MICROBIOLOGY - BLOOD ORDERABLES Performing Organization Address [facility] de Phone Number [facility] [place] [place] [address] * XR Chest One View (01/11/2021 2:13 [...] below. ? Electronically signed by: Chavo Bartlett DO, [facility] ([phone]), at 01/11/2021 7:50 AM Narrative 01/11/2021 7:50 [...] below. Electronically signed by: Chavo Bartlett DO, [facility]([phone]), at 01/11/2021 7:50 AM Rayo Bianchi MD IMG DX ORDERABLES * (ABNORMAL) Lactate, whole blood, send to lab ([facility]) (01/11/2021 2:05 AM EST) Lactate WB 3.5(H) 0.5 - 2.2 mmol/L [facility] Blood specimen (specimen) Venous Draw / Unknown 01/11/2021 2:05 AM EST 01/11/2021 2:14 AM EST Narrative Resulting Agency Comment Spec In Lab Ernie Thrasher MD CHEMISTRY ORDER BELEN Performing Organization Address City/[facility]/ZIP Co de Phone Number [facility] [place] [address] * EKG 12 Lead (01/11/2021 1:59 AM EST) Ventricular rate 96 BPM MUSE SYSTEM Atrial Rate 96 BPM MUSE SYSTEM P-R Interval 148 ms MUSE SYSTEM QRS Duration 84 ms MUSE SYSTEM Q-T Interval 366 ms MUSE SYSTEM QTC Calculated (Bezet) 462 ms MUSE SYSTEM Calculated P [place] 52 degrees MUSE SYSTEM Calculated R [place] 60 degrees MUSE SYSTEM Calculated T [place] 19 degrees MUSE SYSTEM INTERPRETATION Normal sinus rhythm Baseline artifact Normal ECG When compared with ECG of 17-DEC-2020 02:40, Sinus rhythm has replaced Atrial fibrillation I personally reviewed the tracing and edited the fellows interpretation Confirmed by fellow Fernandez Higuera ([id number]) on 01/11/2021 10:24:41 AM Confirmed by Vini Chanel ([id number]) on 01/12/2021 5:28:31 PM MUSE SYSTEM 01/11/2021 1:59 AM EST 01/12/2021 5:28 PM EST Rayo Bianchi MD ECG ORDERABLES Performing Organization Address City/[facility]/ZIP Co de Phone Number MUSE SYSTEM * (ABNORMAL) Differential, Automated (01/10/2021 9:55 PM EST) Neutrophils % 88.7 % [facility] Neutr Abs (ANC) 14.29(H) 1.70 - 6.10 x10(3)/mc L [facility] Lymphocytes % 8.9 % [facility] Lymphocytes Abs 1.4 0.9 - 3.2 x10(3)/ L [facility] Monocytes % 1.4 % [facility] Monocyte Abs 0.2(L) 0.3 - 0.9 x10(3)/[facility] Eosinophils % 0.1 % [facility] Eosinophils Abs 0.0 0.0 - 0.4 x10(3)/[facility] Basophils % 0.3 % [facility] Basophils Abs 0.0 0.0 - 0.1 x10(3)/[facility] Immature Gran % 0.60 % [facility] Comment: Immature granulocytes(IG's)percentage and absolute count will include metamyelocytes, myelocytes, and promyelocytes. Blood smears from CBCs yielding IG's will be scanned manually for concordance. If this scan disagrees with the automated IG or if promyelocytes are noted, a manual differential will be performed. Amy Gran Abs 0.09(H) 0.00 - 0.04 x10(3)/[facility] Blood specimen (specimen) 01/10/2021 9:55 PM EST 01/10/2021 10:01 PM EST Narrative Resulting Agency Comment Spec In Lab Ernie Thrasher MD HEMATOLOGY [facility]ER [facility] Organization Address City/State/[facility] Co de Phone Number [facility] [place] [address] * (ABNORMAL) Hemogram (01/10/2021 9:55 PM EST) WBC 16.1(H) 4.0 - 9.5 x10(3)/[facility] LAB[facility]AT[facility] RBC 4.79 4.58 - 5.54 x10(6)/[facility] Hemoglobin 13.5(L) 13.7 - 16.5 gm/dL [facility] Hematocrit 41.1 40.5 - 48.5 % [facility] MCV 85.8 82.9 - 93.1 [facility] MCH 28.2 27.5 - 32.1 pg [facility] MCHC 32.8 32.0 - 35.7 gm/dL [facility] Platelets 253 145 - 357 x10(3)/[facility] RDWSD 44.0 36.0 - 45.0 fL [facility] RDWCV 14.2(H) 11.4 - 13.8 % [facility] MPV 10.3 7.6 - 12.9 [facility] nRBC % Auto 0.0 % [facility] nRBC Abs Auto 0.000 0.000 - 0.000 x10(3)/[facility] Blood specimen (specimen) 01/10/2021 9:55 PM EST 01/10/2021 10:01 PM EST Narrative Resulting Agency Comment Spec In Lab Ernie Thrasher MD HEMATOLOGY [employer]ER [place] Performing Organization Address City/[facility]/ZIP Co de Phone Number [facility] [place] [address] * (ABNORMAL) APTT (01/10/2021 9:55 PM EST) PTT 66(H) 25 - 37 sec [facility] Comment: The PTT is NOT appropriate for heparin monitoring. Use the Anti-Xa level for heparin monitoring (HEP UFH) or LMWH monitoring (HEP LMW). A PTT less than 37 seconds generally indicates adequate hemostasis. Blood specimen (specimen) 01/10/2021 9:55 PM EST 01/10/2021 10:01 PM EST Narrative Resulting Agency Comment Spec In Lab Fadi Escobar MD HEMATOLOGY ORDERABLE S Performing Organization Address City/[facility]/ZIP Co de Phone Number [facility] [place] [address] * (ABNORMAL) Prothrombin Time (01/10/2021 9:55 PM EST) PT 15.6(H) 9.4 - 12.5 sec [facility] INR 1.4 [facility] Comment: An INR <2.0 indicates adequate [...] MD HEMATOLOGY ORDERABLE S Performing Organization Address [facility] Co de Phone Number [facility] [place] [address] * (ABNORMAL) Hepatic Function Panel (01/10/2021 9:55 PM EST) Pathologist [facility] Total Protein 6.1 6.1 - 8.0 gm/dL [facility] Albumin 3.3 3.2 - 5.2 gm/dL [facility] AST 46(H) 0 - 39 unit/L [facility] ALT 40 0 - 55 unit/L [facility] Alk Phos 51 40 - 130 unit/L [facility] Total Bilirubin 0.5 0.2 - 1.3 mg/dL [facility] Bili, Direct 0.2 0.0 - 0.3 mg/dL [facility] Blood specimen (specimen) 01/10/2021 9:55 PM EST 01/10/2021 10:01 PM EST Narrative Resulting Agency Comment Spec In Lab Fadi Escobar MD CHEMISTRY ORDERABLES Performing Organization Address [facility] Co de Phone Number [facility] [place] [address] * (ABNORMAL) Magnesium (01/10/2021 9:55 PM EST) Magnesium 0.63(L) 0.69 - 1.07 mmol/L [facility] Blood specimen (specimen) 01/10/2021 9:55 PM EST 01/10/2021 10:01 PM EST Narrative Resulting Agency Comment Spec In Lab Fadi Escobar MD CHEMISTRY ORDERABLES [facility] [place] [address] * (ABNORMAL) Basic Metabolic Panel (non-fasting) (01/10/2021 9:55 PM EST) Glucose Lvl 171 65 - 199 mg/dL [facility] Comment:Diabetes: >=200 mg/d L plus symptoms BUN 15 10 - 20 mg/dL [facility] Creatinine 0.89 0.80 - 1.50 mg/dL [facility] Sodium 138 135 - 145 mmol/L [facility] Potassium 4.3 3.5 - 5.0 mmol/L [facility] Comment: Please note: ??Patients with WBC >100,000 may have falsely elevated Potassium levels. ??For accurate Potassium quantification in these patients send serum separator tube (gold top) for subsequent determinations. ??Contact the Clinical Chemistry Laboratory if there are any questions. Chloride 107 98 - 107 mmol/L [facility] CO2 18(L) 22 - 31 mmol/L [facility] Anion Gap 13 5 - 15 mmol/L [facility] Calcium 8.1(L) 8.5 - 10.5 mg/dL [facility] Estimated GFR 99 >=60 mL/min/1. 73 m?? [facility] Comment: This patient? [...] In Lab Fadi Escobar MD CHEMISTRY ORDERABLES [facility] [place] [address] * ELECTROPHYSIOLOGY PROCEDURE (01/10/2021 6:28 PM EST) Anatomical Region Laterality Modality Other Narrative 01/22/2021 8:24 AM EDT Cardiac Electrophysiology Please refer to the operative note filed under the inpatient tab following the completion of this procedure. Fadi Escobar MD EP PROCEDURE ORDERAB LES * (ABNORMAL) Point of Care Blood Gas Historical (01/10/2021 4:20 PM EST) POC pH 7.41 7.35 - 7.45 [facility] POC PCO2 40 35 - 45 mmHg [facility] POC PO2 149(H) 85 - 104 mmHg [facility] POC Base Excess 0.0 -3.0 - 3.0 mmol/L [facility] POC HCO3 24.8 20.0 - 26.0 mmol/L [facility] POC Sodium 139 135 - 145 mmol/L [facility] POC Potassium 3.9 3.5 - 5.0 mmol/L [facility] POC Hematocrit 42.0 40.0 - 51.0 % [facility] POC Calc Hgb 14.3 13.7 - 17.5 gm/dL [facility] Comment:The calculation of h emoglobin from hematocrit assumes a normal MCHC. POC Bgas Loc CC LAB [facility] Blood specimen (specimen) 01/10/2021 4:20 PM EST 01/11/2021 9:00 AM EST Jose Anand MD CHEMISTRY ORDERABLES [facility] [place] [address] * COVID-19 PCR (01/10/2021 12:32 PM EST) SARS-CoV-2 RNA PCR Not Detected Not Detected [facility] Comment: This result should [...] using the Simplexa COVID-19 Direct Assay by Swish as authorized by the FDA issued Emergency [...] Department of Pathology and Laboratory Medicine at [facility], certified under the Clinical Laboratory Improvement [...] fact sheets at the following FDA website: https://www.fda.gov/medical-devices/rynwfednqlv-vwkbuus-1188-ispim-90-jzarflcnp- use-a fzsleskspdunf-yjpgkhn-ybuxucc/rqmnp-uyoxsinvase-sbag SARS-CoV-2 Source [employer] [facility] [facility] Nasopharyngeal swab (specimen) 01/10/2021 12:32 PM EST 01/10/2021 1:22 PM EST Comment:Symptoms->Surveillan ce Narrative Resulting Agency Comment Spec In Lab Fadi Escobar MD MICROBIOLOGY - GENER AL ORDERABLES Performing Organization Address City/State/[facility] Co de Phone Number [facility] [place] [phone] documented in this encounter Visit Diagnoses Diagnosis SVT (supraventricular tachycardia)- Primary Other specified cardiac dysrhythmias SVT (supraventricular tachycardia) Other specified cardiac dysrhythmias PAF (paroxysmal atrial fibrillation) Atrial fibrillation Pericardial effusion Unspecified disease of pericardium PAF (paroxysmal atrial fibrillation) Atrial fibrillation SVT [...] Given 01/12/2021 8:40 AM EST 0.6 mg HYDROmorphone (Dilaudid) (1 mg/mL) injection syringe 0.4 [...] Cath Recovery Unit., Cath (Recovery-Hospital Unit), Routine pantoprazole EC (Protonix) tablet 40 mg [...] Provider: Admin Adt)1641 (Given - Provider: Gina Carmichael, FLAVIA) 1722 (Given - Provider: Tess Santiago RN) colchicine (Colcrys) tablet 0.6 mg 0.6 mg, Oral, DAILY, First dose on Fri01/12/21 at 0900, Until Discontinued, Maximum dose: 2.4 mg/24 hours. DO NOT SPLIT, CRUSH OR OPEN, Routine 0840 (Given - Provider: Tess Santiago RN) 0827 (Given - Provider: Tess Santiago RN) colchicine (Colcrys) tablet 1.2 mg (COMPLETED) 1.2 mg, Oral, ONCE, 1 dose, On Candi 01/11/21 at 1045, Maximum dose: 2.4 mg/24 hours. DO NOT SPLIT, CRUSH OR OPEN, Routine 1033 (Given - Provider: Tess Santiago RN) heparin (porcine) (5,000 units/1 mL) subcutaneous injection 5,000 Units (CANCELED) 5,000 Units, Subcutaneous, EVERY 8 HOURS SCHEDULED, First dose on Candi 01/11/21 at 2200, Until Discontinued, Routine 2106 (Given - Provider: Nayan William, LFAVIA) 0600 (Not Given - Provider: Nayan William RN - Reason: See comment - Comment: hold per MD)1438 (Given - Provider: Tess Santiago RN) ketorolac (Toradol) (30 mg/mL) injection 30 mg (COMPLETED) 30 mg, Intravenous, ONCE, 1 dose, On Candi 01/11/21 at 1500, Routine 1449 (Given - Provider: Gina Carmichael, FLAVIA) lamoTRIgine (LaMICtal) tablet 100 mg 100 [...] dose, On Candi 01/11/21 at 1615, Routine 1532 (Given - Provider: Gina Carmichael, FLAVIA) oxyCODONE (Roxicodone) tablet 5 mg (COMPLETED) 5 mg, Oral, ONCE, 1 dose, On Candi 01/11/21 at 1715, Routine 1641 (Given - Provider: [...] Procedural area)1446 (JAN Unhold - Provider: Admin Adt)2105 (Given - Provider: Nayan William RN) 0840 (Given - Provider: Tess Santiago RN)2100 (Given - Provider: Nayan William RN) 0826 (Given - Provider: Tess Santiago RN) sodium chloride 0.9 % (flush) flush 5 mL 5 mL, Intravenous, 2 TIMES DAILY, First dose on Fri01/10/21 at 2145, Until Discontinued, Recovery (Recovery-Hospital Unit), Routine 0900 (Not Given - Provider: Tess Santiago RN - Reason: See comment - Comment: infusing)2100 (Not Given - Provider: Nayan William RN - Reason: See comment - Comment: line infusing) 0852 (Given - Provider: Tess Santiago RN)2101 (Given - Provider: Nayan William RN) 0843 (Given - Provider: Tess Santiago RN) sodium chloride 0.9 % (flush) flush 5 mL 5 mL, Intravenous, 2 TIMES DAILY, First dose on Fri01/10/21 at 2345, Until Discontinued, Routine 0900 (Not Given - Provider: Tess Santiago RN - Reason: See comment - Comment: infusing)1341 (MAR Hold - Provider: Admin Adt - Reason: Transfer to a Procedural area)1446 (MAR Unhold - Provider: Admin Adt)211 (Given - Provider: Nayan William RN) 0900 (Not Given - Provider: Tess Santiago RN - Reason: See comment - Comment: infusing)210 (Given - Provider: Nayan William RN) 0844 (Given - Provider: Tess Santiago RN) Continuous Medication Order 01/11/2021 01/12/2021 01/13/2021 PHENYLephrine (Sukhi-Synephrine) (80 mcg/mL) in sodium chloride 0.9% 250 mL infusion (CANCELED) 0-180 mcg/min (0-135 mL/hr), Intravenous, CONTINUOUS, Starting on Fri01/10/21 at 2200, Until 01/13/21 at 0703, Titrate [...] - Reason: Transfer to a Procedural area)1446 ([facility] Unhold - Provider: Admin Adt) sodium chloride [...] RN)1222 (Restarted - Provider: Gina Carmichael RN)1341 ([facility] Hold - Provider: Admin Adt - Reason: Transfer to a Procedural area)1446 ([facility] Unhold - Provider: Admin Adt)1500 (New Bag [...] William RN)0600 (Rate/Dose Verify - Provider: Nayan William, FLAVIA)0800 (Stopped - Provider: Tess Santiago, FLAVIA) PRN Medication Order 01/11/2021 01/12/2021 01/13/2021 acetaminophen [...] Starting on Candi 01/11/21 at 1202, Until 01/12/21 at 0833, Pain, Maximum dose of acetaminophen is 4000 mg from all sources in 24 hours. When ordered for pain, acetaminophen should be given even when other ordered pain medications are indicated. , Routine 1341 (JAN Hold - Provider: Admin Adt - Reason: Transfer to a Procedural area)1446 (MAR Unhold - Provider: Admin Adt)1516 (Given - Provider: Gina Carmichael RN)2104 (Given - Provider: Nayan William RN) 0322 (Given - Provider: Nayan William RN) atropine (0.1 mg/mL) injection 1 mg 1 mg, Intravenous, Administer over 4 Hours, EVERY 5 MIN PRN, 2 doses, Starting on Candi 01/11/21 at 1946, Until 01/13/21 at 1737, Other, vasovagal episode, Call interventional MDLexie, Cath (Recovery-Hospital Unit), Routine clonazePAM (KlonoPIN) tablet 1 mg 1 mg, Oral, 2 TIMES DAILY PRN, Starting on 01/10/21 at 2329, Until 01/13/21 at 1737, Anxiety, DO NOT SPLIT, CRUSH OR OPEN, Routine 1341 (JAN Hold - Provider: Admin Adt - Reason: Transfer to a Procedural area)1446 (MAR Unhold - Provider: Admin Adt)2106 (Given - Provider: Nayan William RN) 0848 (Given - Provider: Tess Santiago, RN) fentaNYL (pf) (50 mcg/mL) multi-dose injection (CANCELED) ONCE PRN, Starting on Candi 01/11/21 at 1412, Until Candi 01/11/21 at 1433, Intra-Operative (Intra-Procedure), Routine 1412 (Given - Provider: Jonathon Jimenez, FLAVIA)1416 (Given - Provider: Jonathon Jimenez RN)1420 (Given [...] Nayan William RN)0521 (Given - Provider: Nayan William RN)1014 (Given - Provider: Tess Santiago RN)2102 (Given - Provider: Nayan William RN) lidocaine [...] Cath (Intra-Procedure), Routine 1401 (Given - Provider: Jonathno Jimenez, FLAVIA)1416 (Given - Provider: Jonathon Jimenez, FLAVIA)1421 (Given - Provider: Jonathon Jimenez RN) nitroGLYcerin (Nitrostat) disintegrating tablet 0.4 mg 0.4 mg, Sublingual, EVERY 5 MIN PRN, Starting on 01/10/21 at 2329, Until 01/13/21 at 1737, Chest [...] Intravenous, EVERY 1 MIN PRN, Starting on 01/10/21 at 2123, Until 01/13/21 at 1737, flush, [...] area)1446 (JAN Unhold - Provider: Admin Adt) Linked Groups [...] patch documented in this encounter Care Teams Bench Tool Maker Relationship Specialty Start Date End Date Bni Bowman MD [address] [place] [id number] PCP - General General Internal Medicine 04/21/1707/11 documented as of this encounter
--- OUTSIDE RECORDS SUMMARY | 2024-06-04 20:46 | XMS_ITS | Encounter Summary ---
Author Organization [facility] [place] [address] Care Team Providers Care Check And Transfer Beader Name Role Phone Bin Bowman MD Primary Care Provider Reason for Referral * Diagnostic Test (Routine) - Closed Specialty Diagnoses / Procedures Referred By Contac t Referred To Contact Cardiology Diagnoses H/O cardiac radiofrequency ablation Procedures Mary Contreras PA [facility] [place] [address] [facility] [place] [address] Referral ID Status Reason Start Date Expiration Date V isits Requested Visits Authorized [id number] Closed Specialty Service Requested 08/01/2020 08/26/2020 1 1 Reason for Visit * Diagnostic Test (Routine) - Closed Specialty Diagnoses / Procedures Referred By Contac t Referred To Contact Cardiology Diagnoses H/O cardiac radiofrequency ablation Procedures Mary Contreras PA [facility] [place] [address] [facility] [place] [address] Referral ID Status Reason Start Date Expiration Date V isits Requested Visits Authorized [id number] Closed Specialty Service Requested 08/01/2020 08/26/2020 1 1 Encounter Details Date Type Department Care Team (Latest Contact Info) Description 08/02/2020 12:52 PM EDT - 08/02/2020 11:59 PM EDT Hospital Encounter Non-Invasive Cardiology Lab [facility] [place] [address] Fadi Escobar MD [facility] [place] [address] H/O cardiac radiofrequency ablation Discharge Disposition: Home Social History Tobacco Use [...] Sig Dispensed Refills Start Date End Date lisinopriL (Prinivil;Zestril) 2.5 mg TabletIndications:Essen tial hypertension [...] as needed for Anxiety. metoprolol succinate XL (Toprol-XL) 100 mg Tablet Sustained Release 24 hrIndications:Coronary artery disease involving [place] coronary artery of [place] heart without angina pectoris,Essential hypertension,Heart palpitations Take 1 tablet by mouth 2 times daily. Take with 25mg tab to equal 125mg BID 90 tablet 1 07/11/2020 11/07/2020 metoprolol succinate XL (Toprol-XL) 25 mg Tablet Sustained Release 24 hrIndications:Coronary artery disease involving [place] coronary artery of [place] heart without angina pectoris,Essential hypertension,Heart palpitations Take 1 tablet by mouth 2 times daily. Take with 100mg tab to equal 125mg BID 30 tablet 12 07/11/2020 2020 apixaban (Eliquis) 2.5 mg Tablet Take 5 mg by mouth 2 times daily. 12/19/2020 clindamycin (CLINDAGEL) 1 % Gel APPLY TOPICALLY TO AFFECTED AREA TWICE DAILY 1 01/06/2019 2020 hydroCHLOROthiazide (HYDRODIURIL) 12.5 mg Tablet take 1 tablet by mouth once daily 0 04/08/2019 2020 pantoprazole (PROTONIX) 40 mg Tablet, Delayed Release (E.C.) Take 1 tablet by mouth 2 times daily. 180 tablet 3 03/25/2019 03/19/2021 atorvastatin (LIPITOR) 80 mg Tablet Take 1 tablet by mouth every evening. 90 tablet 3 07/16/2017 12/19/2020 lamoTRIgine (LAMICTAL) 200 mg Tablet Take 1 tablet by mouth daily. 30 tablet 3 07/16/2017 01/13/2021 documented as of this encounter Plan of Treatment Upcoming Encounters Date Type Department Care Team (Latest Contact Info) Description 06/07/2024 2:00 PM EDT Office [place] [phone] Joan Castro MD [facility] [place] [address] 06/11/2024 1:03 PM EDT Hospital Encounter [place] [phone] Rachel Carrasco MD [facility] [place] [address] 06/11/2024 1:03 PM EDT - 06/11/2024 1:58 PM EDT Surgery [place] [phone] Rachel Carrasco MD [facility] [place] [place] [address] CYSTO, REMOVAL OF STENT, FOREIGN BODY OR CALCULUS, SIMPLE (WRVU 2.81) 06/23/2024 10:00 AM EDT Office Visit Cardiology at [address] [place] [address] Mo Horne MD [facility] [place] [address] Scheduled Procedures Name Priority Associated Diagnoses Date/Ti me CYSTO, REMOVAL OF STENT, FOR EIGN BODY OR CALCULUS, SIMPLE (WRVU 2.81) NEPHROLITHIASIS 06/11/2024 1:03 PM EDT documented as of this encounter Procedures Procedure Name Priority Date/Time Associated Diagnosis Comments ZIOPATCH Routine 08/02/2020 1:20 PM EDT H/O cardiac radiofrequency ablation documented in this encounter Results * Ziopatch (08/02/2020 1:20 PM EDT) Anatomical Region Laterality Modality Other Narrative 08/26/2020 8:29 PM EDT Cardiac Electrophysiology Zio Monitor Study Initiated: ??02 August 2020 Duration: ?? 13 days 21 hours (after removal of negligible artifact) Indication: S/p mapping and ablation of atrial flutter and atrioventricular node reentrant tachyvcardia Result: The overall sinus rhythm rate range was 41-127/minute, and averaged 64/minute. The predominant underlying rhythm throughout the monitoring period was conducted sinus rhythm. The slowest heart rates marginally tended to occur overnight. No pauses >3 seconds were seen, and there was no high grade atrioventricular conduction block reported or observed at normal sinus rates. There was a <1.0% burden of isolated [...] of all of these runs was 121/minute. There was a <1.0% burden of isolated [...] low overall burden of ectopy were detected. ____ Interpreted by Fadi Escobar MD, [facility] Fadi Escobar MD CARDIAC SERVICES ORD ERABLES documented in this encounter Visit Diagnoses Diagnosis H/O cardiac radiofrequency ablation documented in this encounter Care Teams Check And Transfer Beader Relationship Specialty Start Date End Date Bin Bowman MD [address] [place] [address] PCP - General General Internal Medicine 04/21/1707/11 documented as of this encounter
--- OUTSIDE RECORDS SUMMARY | 2024-06-04 20:46 | XMS_ITS | Encounter Summary ---
Author Organization Count Includes [facility] Address [facility] [place] [address] Care Team Providers Care Receiving Operator Name Role Phone Bin Bowman MD Primary Care Provider [phone] Encounter Details Date Type Department Care Team (Late st Contact Info) Description 12/14/2020 Telephone Cardiology at [address] [phone] Obdulio Dominique MD [facility] [place] [address] Social History Tobacco Use Types Packs/Day Years [...] 2:00 PM EDT Office [place] [phone] Joan Castro MD [facility] [place] [address] 06/11/2024 1:03 PM EDT Hospital Encounter [place] [address] Rachel Carrasco MD [facility] [place] [address] 06/11/2024 1:03 PM EDT - 06/11/2024 1:58 PM EDT Surgery [place] [phone] Rachel Carrasco MD [facility] [place] [address] CYSTO, REMOVAL OF STENT, FOREIGN BODY OR CALCULUS, SIMPLE (WRVU 2.81) 06/23/2024 10:00 AM EDT Office Visit Cardiology at [address] [address] Mo Horne MD [facility] [place] [address] Scheduled Procedures Name Priority Associated Diagnoses Date/Ti me CYSTO, REMOVAL OF STENT, FOR EIGN BODY OR CALCULUS, SIMPLE (WRVU 2.81) NEPHROLITHIASIS 06/11/2024 1:03 PM EDT documented as of this encounter Visit Diagnoses Not on filedocumented in this encounter Care Teams Receiving Operator Relationship Specialty Start Date End Date Bin Bowman MD [address] [place] [address] PCP - General General Internal Medicine 04/21/1707/11 documented as of this encounter
--- OUTSIDE RECORDS SUMMARY | 2024-06-04 20:46 | XMS_ITS | Encounter Summary ---
Author Organization [facility] Address [facility] [place] [address] Care Team Providers Care Motion Picture Critic Name Role Phone Bin Bowman MD Primary Care Provider [phone] Encounter Details Date Type Department Care Team (Late st Contact Info) Description 12/15/2020 Telephone [place] [address] Joss Painter MD [facility] [place] [address] Social History Tobacco Use Types Packs/Day Years [...] Miscellaneous Notes * Telephone Encounter - Joss Painter - 12/15/2020 11:16 PM EST 49 yo patient followed by Dr. Escobar with the following history: Past Medical History: ??1) ??Supraventricular tachycardia (see above) ??2) ??Atrial tachycardia/fibrillation (see above) ??3)?[place] [facility] [place]I [place]EMMY of OM1) >?LVEF 55-60% >?Aspirin, statin, beta helen ??4)?Atypical chest pain (costchondritis, gastroesophageal reflux) ??5) ??Hypertension ??6)?Sleep apnea (referral made to Sleep Clinic as of April 2020)) ??7) ??Morbid obesity ??8) ??Bipolar disorder with anxiety ??9) ??RICARDO ??0) ??S/p surgeries >?Tonsillectomy >?Cholecystectomy??? Presents today with narrow complex tachycardia, appears to be AFib/flutter on ECG. He has been weaning his metoprolol per Dr. Escobar's last note and is currently on 50 mg daily. He is symptomatic with palpitations. VS: [id number] ?? All covid questions: negative?? Tested yesterday PCR - negative He is now on diltiazem 25 mg/h in addition to his home doses of amiodarone and metoprolol. He has taken apixaban continuously. A/P: Difficult to control atrial fibrillation/flutter awaiting ablation. Advised cardioversion and subsequent brief observation prior to discharge. documented in this encounter Plan of Treatment Upcoming Encounters Date Type Department Care Team (Latest Contact Info) Description 06/07/2024 2:00 PM EDT Office Visit [place] [phone] Joan Castro MD [facility] [place] [address] 06/11/2024 1:03 PM EDT Hospital Encounter [place] [address] Rachel Carrasco MD [facility] [place] [address] 06/11/2024 1:03 PM EDT - 06/11/2024 1:58 PM EDT Surgery Main Operating Room [facility] [place] [address] Rachel Carrasco MD [facility] [place] [address] CYSTO, REMOVAL OF STENT, FOREIGN BODY OR CALCULUS, SIMPLE (WRVU 2.81) 06/23/2024 10:00 AM EDT Office Visit Cardiology at [address] [place] [address] Mo Horne MD [facility] [place] [address] Scheduled Procedures Name Priority Associated Diagnoses Date/Ti me CYSTO, REMOVAL OF STENT, FOR EIGN BODY OR CALCULUS, SIMPLE (WRVU 2.81) NEPHROLITHIASIS 06/11/2024 1:03 PM EDT documented as of this encounter Visit Diagnoses Not on filedocumented in this encounter Care Teams Motion Picture Critic Relationship Specialty Start Date End Date Bin Bowman MD [address] [place] [id number] PCP - General General Internal Medicine 04/21/1707/11 documented as of this encounter
--- OUTSIDE RECORDS SUMMARY | 2024-06-04 20:46 | XMS_ITS | Encounter Summary ---
Author Organization [facility] Address [facility] [place] [address] Care Team Providers Care Dam Tender Name Role Phone Bin Bowman MD Primary Care Provider Encounter Details Date Type Department Care Team (Late st Contact Info) Description 01/03/2021 Telephone Cardiology at [address] [phone] Obdulio Dominique MD [facility] [place] [address] Social History Tobacco Use Types Packs/Day Years [...] encounter Miscellaneous Notes * Telephone Encounter - Obdulio Dominique MD - 01/03/2021 2:23 AM EST Cardiology Triage Note 01/03/2021 History of Present Illness See triage note by me from late 01/02/2021 for full history. Patient is on IV amiodarone and converted to sinus rhythm. He was originally sinus bradycardia at 54 bpm, and now is sinus rhythm at 65 bpm. His symptoms have resolved and he feels back to his usual self. Assessment & Recommendations The atrial flutter appears to be exquisitely sensitive to amiodarone. I suspect that once patient'sdose of amiodarone dose was decreased from 400 mg twice daily to 200 mg once daily, the atrial flutter was no longer being adequately treated. - stop IV amiodarone - start amiodarone 400 mg PO twice daily - continue home metoprolol succinate 50 mg daily - I will provide update for EP attending to reach out to patient about antiarrhythmic management and how to successfully bridge patient to abalation - [place] [facility] The above recommendations are based on my conversation with the referring provider. I have not personally interviewed or examined this patient. Obdulio Dominique MD documented in this encounter Plan of Treatment Upcoming Encounters Date Type Department Care Team (Latest Contact Info) Description 06/07/2024 2:00 PM EDT Office Visit Gastroenterology at [place] [phone] Joan Castro MD [facility] [place] [address] 06/11/2024 1:03 PM EDT Hospital Encounter Main Operating Room [place] [phone] Rachel Carrasco MD [facility] [place] [address] 06/11/2024 1:03 PM EDT - 06/11/2024 1:58 PM EDT Surgery Main Operating Room [place] [phone] Rachel Carrasco MD [facility] [address] CYSTO, REMOVAL OF STENT, FOREIGN BODY OR CALCULUS, SIMPLE (WRVU 2.81) 06/23/2024 10:00 AM EDT Office Visit Cardiology at [address] [place] [address] Mo Horne MD [facility] [place] [address] Scheduled Procedures Name Priority Associated Diagnoses Date/Ti me CYSTO, REMOVAL OF STENT, FOR EIGN BODY OR CALCULUS, SIMPLE (WRVU 2.81) NEPHROLITHIASIS 06/11/2024 1:03 PM EDT documented as of this encounter Visit Diagnoses Not on filedocumented in this encounter Care Teams Dam Tender Relationship Specialty Start Date End Date Bin Bowman MD [address] [place] [address] PCP - General General Internal Medicine 04/21/1707/11 documented as of this encounter
--- OUTSIDE RECORDS SUMMARY | 2024-06-04 20:46 | XMS_ITS | Encounter Summary ---
Author Organization [facility] [place] [address] Care Team Providers Care Briquette Maker Name Role Phone Bin Bowman MD Primary Care Provider Encounter Details Date Type Department Care Team (Late st Contact Info) Description 12/06/2020 Telephone Cardiology at [address] [phone] Jami Gurrola Social History Tobacco Use Types [...] * Telephone Encounter - Jami Gurrola - 12/06/2020 9:[address] Culver office called about this pt and wants him to be seen as soon as possible. I explained that Dr. Escobar does not have anything until late january into February but we could set him up with a PA in the meantime (would need an hour). The nurse said he has been to the ed twice recently with SVT and his meds have had to be adjusted. She was going to call his and let her know, his will be reaching out to us to schedule whichever appt they want. They will also be faxing over all of the recent visits, notes, labs, etc for review. I told her I would get it to the team nurse to review and update Dr. Escobar if appropriate. documented in this encounter Plan of Treatment Upcoming Encounters Date Type Department Care Team (Latest Contact Info) Description 06/07/2024 2:00 PM EDT Office Visit [place] [phone] Joan Castro MD [facility] [place] [address] 06/11/2024 1:03 PM EDT Hospital Encounter Main Operating Room [place] [phone] Rachel Carrasco MD [facility] [place] [address] 06/11/2024 1:03 PM EDT - 06/11/2024 1:58 PM EDT Surgery Main Operating Room [place] [phone] Rachel Carrasco MD [facility] [place] [address] CYSTO, REMOVAL OF STENT, FOREIGN BODY OR CALCULUS, SIMPLE (WRVU 2.81) 06/23/2024 10:00 AM EDT Office Visit Cardiology at [address] [place] [address] Mo Horne MD [facility] [place] [address] Scheduled Procedures Name Priority Associated Diagnoses Date/Ti me CYSTO, REMOVAL OF STENT, FOR EIGN BODY OR CALCULUS, SIMPLE (WRVU 2.81) NEPHROLITHIASIS 06/11/2024 1:03 PM EDT documented as of this encounter Visit Diagnoses Not on filedocumented in this encounter Care Teams Briquette Maker Relationship Specialty Start Date End Date Bin Bowman MD [address] [address] PCP - General General Internal Medicine 04/21/1707/11 documented as of this encounter
--- OUTSIDE RECORDS SUMMARY | 2024-06-04 20:46 | XMS_ITS | Encounter Summary ---
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 Golf Coach Name Role Phone Bin Bowman MD Primary Care Provider Reason for Referral * Diagnostic Test (Routine) - Closed Specialty Diagnoses / Procedures Referred By Zeyad mishra Referred To Contact Cardiology Diagnoses H/O cardiac radiofrequency ablation Procedures Mary Contreras PA [facility] [place] [address] [facility] [place] [address] Referral ID Status Reason Start Date Expiration Date V isits Requested Visits Authorized [id number] Closed Specialty Service Requested 08/01/2020 08/26/2020 1 1 Encounter Details Date Type Department Care Team (Late st Contact Info) Description 07/18/2020 Orders Only Cardiology at [address] [phone] Mary Daley PA [facility] [place] [address] H/O cardiac radiofrequency ablation Social History Tobacco Use Types Packs/Day Years [...] 2:00 PM EDT Office [place] [phone] Joan Castro MD [facility] [place] [address] 06/11/2024 1:03 PM EDT Hospital Encounter [place] [phone] Rachel Carrasco MD [facility] [place] [address] 06/11/2024 1:03 PM EDT - 06/11/2024 1:58 PM EDT [place] [phone] Rachel Carrasco MD [facility] [place] [address] CYSTO, REMOVAL OF STENT, FOREIGN BODY OR CALCULUS, SIMPLE (WRVU 2.81) 06/23/2024 10:00 AM EDT Office Visit Cardiology at [address] [phone] Mo Horne MD [facility] [place] [address] Scheduled Procedures Name Priority Associated Diagnoses Date/Ti me CYSTO, REMOVAL OF STENT, FOR EIGN BODY OR CALCULUS, SIMPLE (WRVU 2.81) NEPHROLITHIASIS 06/11/2024 1:03 PM EDT documented as of this encounter Results * Ziopatch (08/02/2020 1:20 [...] detected. ____ Interpreted by Fadi Escobar MD, [facility] Fadi Escobar MD CARDIAC SERVICES ORD ERABLES documented in this encounter Visit Diagnoses Diagnosis H/O cardiac radiofrequency ablation H/O cardiac radiofrequency ablation documented in this encounter Care Teams Head Boys Golf Coach Relationship Specialty Start Date End Date Bin Bowman MD [address] [address] PCP - General General Internal Medicine 04/21/1707/11 documented as of this encounter
--- OUTSIDE RECORDS SUMMARY | 2024-06-04 20:46 | XMS_ITS | Encounter Summary ---
Author Organization [facility] Address [facility] [place] [address] Care Team Providers Care Physician Name Role Phone Bin Bowman MD Primary Care Provider Reason for Visit * Auth/Cert Specialty Diagnoses / Procedures Referred By Zeyad t Referred To Contact Diagnoses Flutter-fibrillation Afib w/ RVR Procedures EMERGENCY IPI Referral ID Status Reason Start Date Expiration Date Visits Re quested Visits Authorized [id number] 1 1 Encounter Details Date Type Department Care Team (Latest Contact Info) Description 2020 1:31 AM EST - 12/19/2020 1:47 PM [facility] Hospital Encounter [place] [address] Khurram Barillas MD [facility] [place] [address] Fadi Escobar MD [facility] [place] [address] Coronary disease; Flutter-fibrillatio n Discharge Disposition: Home Social History Tobacco Use [...] Sign Reading Time Taken Comments Blood Pressure 129/80 12/19/2020 7:57 AM EST Pulse 60 12/19/2020 7:57 AM EST Temperature 36.5 ??C (97.7 ??F) 12/19/2020 7:57 AM ES T Respiratory Rate 13 12/19/2020 7:57 AM EST Oxygen Saturation 99% 12/19/2020 7:57 AM EST Inhaled Oxygen Concentration - - Weight 184.9 kg (407 lb 10.1 oz) 12/19/2020 6:47 AM EST Height - - Body Mass Index 65.79 09/06/2020 1:55 PM EDT documented in this encounter Discharge Summaries * Juan Antonio Mathew PA - 12/19/2020 1:47 PM EST Cardiac Electrophysiology Discharge Summary Patient Name: Rolo Aguilar Patient Age: 50 y.o. Language: Maltese Race: White Ethnicity: Not nor Admit date: 2020 Discharge date and time: 12/19/2020 @ 1:47 PM Attending Physician: Breonna Terrell MD Discharge Physician: Breonna Terrell MD Follow-up Recommendations for Providers: 1. Medications as listed above. ?? Amiodarone 400 mg tablet: Take 1 tablet by mouth three times daily x 5 days, then one tablet daily x 7 days, then 200 mg (1/2 tablet) daily thereafter (a new script with lower dose will be sent [facility] long-term). ?? Metoprolol succinate 50 mg tablet: Take 1 tablet by mouth daily ?? Atorvastatin 20 mg tablet: Take 1 tablet by mouth every evening (DECREASED DOSE) 2. Continue other home medications as listed including Eliquis 5 mg twice daily. 3. Review the information below regarding Amiodarone. 4. Follow up in ~1 month in the EP clinic (schedulers will be calling you to set this up). 5. If you have any questions and need to get in touch with the office, please call [phone]. Inpatient Provider Contact Information: Cardiac Electrophysiology - Discharge Diagnoses (Hospital Problems) and Secondary Diagnoses (Chronic Problems): Active Hospital Problems Diagnosis ??? Flutter-fibrillation Resolved Hospital Problems No resolved problems to display. Active Non-Hospital Problems Diagnosis ??? SVT (supraventricular tachycardia) ??? H/O cardiac radiofrequency ablation ??? Coronary disease ??? Heart palpitations ??? Obesity ??? Essential hypertension History of Presentation: 50 y.o. male with a history of morbid obesity, SVT s/p ablation (07/10/2020), paroxysmal AF (on apixaban),??ASCVD (s/p NSTEMI, EMMY to OM1 in 07/2017), HTN, sleep apnea, RICARDO who was transferred from [facility] due to recurrent A flutter with RVR. Hospital Course: Patient was started at OSH on Amiodarone which was continued inpatient at [facility] [place]. He was loaded on about 4 grams via IV before transitioning to Amiodarone 400 mg BID. 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 IV Amiodarone was stopped and he was started on Amiodarone 400 mg TID. He was anticoagulated on Eliquis. He tolerated Amiodarone and remained in sinus rhythm without complaints and hemodynamically stable. Vital Signs at Discharge: BP: 129/80, Heart Rate: 60, Temp: 36.5 ??C (97.7 ??F), Resp: 13, Weight: (!) 184.9 kg (407 lb 10.1 oz) (12/19/20 0647) Functional and Cognitive Status: Stable Admission Diagnoses: Flutter-fibrillation [I48.91, I48.92] Discharge Diagnoses: Flutter-fibrillation [I48.91, I48.92] Admission Condition: good Indication for Admission: Medical necessity/monitoring symptomatic atrial fibrillation, on IV antiarrhythmic loading medication. Consults: none Important Studies and Lab Data: Lab Results Component Value Date WBC 8.8 2020 HGB 14.4 2020 HCT 43.6 2020 PLATELET 172 2020 Recent Labs 12/17/20 0311 INR 1.5 Lab Results Component Value Date NA 138 12/19/2020 K 4.2 12/19/2020 CL 104 12/19/2020 BUN 9 (L) 2020 CREATININE 0.92 2020 MAGNESIUM 0.84 2020 Discharge Exam: Please see physical exam in day of discharge progress note. No changes. Discharge Conditions/Prognosis: good Discharge to: home Updated Allergies/ADRs: Allergies Allergen Reactions ??? Adenosine Palpitations tachycardia ??? Gabapentin ??? Wellbutrin [Bupropion Hcl] ??? Zoloft [Sertraline] Immunizations Given this Hospitalization: There is no immunization history on file for this patient. Discharge Medications: Your Medications Continued medications with new dosing Dose Details AMIOdarone 400 mg Tab Commonly known as: PACERONE Take one tablet by mouth three times daily x 5 days, then one tablet by mouth daily x 7 days, then 0.5 mg tablet daily thereafter What changed: ?? medication strength ?? how much to take ?? how to take this ?? when to take this ?? additional instructions Quantity: 60 tablet Refills: 0 apixaban 5 mg Tab Commonly known as: Eliquis Take 1 tablet by mouth 2 times daily. What changed: medication strength 5 mg Quantity: 60 tablet Refills: 3 atorvastatin 20 mg Tab Commonly known as: Lipitor Take 1 tablet by mouth every evening. What changed: ?? medication strength ?? how much to take 20 mg Quantity: 30 tablet Refills: 3 lamoTRIgine 200 mg Tab Commonly known as: LaMICtal Take 1 tablet by mouth daily. What changed: how much to take 200 mg Quantity: 30 tablet Refills: 3 metoprolol succinate XL 50 mg Tablet sr Commonly known as: Toprol-XL Take 50 mg by mouth daily. What changed: Another medication with the same name was removed. Continue taking this medication, and follow the directions you see here. 50 mg Refills: 0 Continued medications, unchanged Dose Details acetaminophen 325 mg Tab Commonly known as: Tylenol Take 2 tablets by mouth every 6 hours as needed for Pain. 650 mg Quantity: 30 tablet Refills: 1 aspirin EC 81 mg Tbec Take 1 tablet by mouth daily. 81 mg Quantity: 30 tablet Refills: 3 clindamycin [...] 2.5 mg Quantity: 90 tablet Refills: 3 nitroGLYcerin 0.4 mg Subl Commonly known as: Nitrostat DISSOLVE 1 UNDER TONGUE NEEDED Refills: 4 pantoprazole EC 40 mg Tbec Commonly known as: Protonix Take 1 tablet by mouth 2 times daily. 40 mg Quantity: 180 tablet Refills: 3 STOPPED Medications hydroCHLOROthiazide 12.5 mg Tab Commonly known as: Hydrodiuril Smoking Status at Discharge: Social History Tobacco Use Smoking Status Former Smoker ??? Types: Cigarettes ??? Quit date: 2013 ??? Years since quittin.1 Smokeless Tobacco Former User ??? Types: Chew Instructions Given to Patient at Discharge: Patient Instructions DISCHARGE INSTRUCTIONS 1. Medications as listed above. ?? Amiodarone 400 mg tablet: Take 1 tablet by mouth three times daily x 5 days, then one tablet daily x 7 days, then 200 mg (1/2 tablet) daily thereafter (a new script with lower dose will be sent [facility] long-term). ?? Metoprolol succinate 50 mg tablet: Take 1 tablet by mouth daily ?? Atorvastatin 20 mg tablet: Take 1 tablet by mouth every evening (DECREASED DOSE) 2. Continue other home medications as listed including Eliquis 5 mg twice daily. 3. Review the information below regarding Amiodarone. 4. Follow up in ~1 month in the EP clinic (schedulers will be calling you to set this up). 5. If you have any questions and need to get in touch with the office, please call [phone]. Important Things to Remember While On Amiodarone ?? Do not miss doses or take extra doses of Amiodarone ?? Do not start any other medications, including over the counter meds without first consulting your doctor. ?? Get prescriptions filled and refilled as soon as possible to avoid any disruptions in treatment. ?? DO report any adverse or unusual events. ?? If you experience fainting seek medical attention immediately. Please advise family and friends of this recommendation as well. ?? Please advise any care providers that you take Amiodarone when medications are being changed or added to your regimen. Antiarrhythmic Medication Instructions - Amiodarone You have been started on a category of medication call an Antiarrhythmic Drug. These medicines are typically used to control or reduce the risk of recurrence of abnormal heart rhythms. Many of these medicines are sensitive to changes electrolytes in the body (such as potassium, sodium, etc). Therefore it is recommended that blood work be obtained every 6 months to check electrolytes. Amiodarone can also affect the liver, lungs, thyroid, and eyes. A 12 lead EKG is also recommendedevery 6 months. These can be checked by your primary health provider or key punch teacher if they are agreeable or by the [facility] Electrophysiology group. Amiodarone is a peculiar drug with multiple potential toxic effects which require careful follow up. The side effects include potentially life threatening liver and lung toxicity as well as hypo- andhyper- thyroidism, photosensitivity, skin discoloration, and optic effects with very rare eye toxicity limiting vision. We obtain laboratory work for routine amiodarone monitoring every 3-4 months the first year of therapy and every 6 months after that. This laboratory work includes thyroid tests, liver enzymes, a chest x-ray, and an ECG. Allergic pneumonitis can be lethal if it is not detected quickly and the amiodarone stopped. It is easily confused with heart failure, which can be a crucial mistake. Minor elevations of liver enzymes are common and can be ignored. High elevations of liver enzymes are uncommon and must be taken seriously. Hypothyroidism (and occasional hyperthyroidism) canoccur. Amiodarone raises the T4 level with chronic therapy, so it is not a good guide to hypothyroidism. We empirically treat patients with Synthroid when the TSH doubles over baseline. They only have subclinical hypothyroidism at this point, sparing them the problem of becoming clinically hypothyroid. Patients can develop skin rashes and bad sunburn with sun exposure, as well as a graying of theskin. We recommend covering up in the sun or using a sunscreen. Estefanía Page, et al. Heart Rhythm 2007;4:[id number] Heart Rhythm Society Amiodarone Monitoring Recommendations Lab Test Frequency LFT Baseline and every 6 months CXR Baseline and every 12 months PFT's Baseline and prn pulmonary symptoms Thyroid Baseline and every 6 months Eye exam Yearly Reasonable to obtain LFT's, TFT q 4 months for the 1st year General Instructions WHAT YOU NEED TO KNOW ABOUT AMIODARONE (Cordarone, Nexterone, and Pacerone) Why am I starting this drug? - It is used to treat fast or unsafe heart rhythms. It can potentially affect your lungs, liver, and thyroid. You will be closely watched when starting this drug. Warning: - Sometimes drugs are not safe when you take them with certain other drugs. Taking them together can cause bad side effects. Be sure to talk to your doctors and pharmacist about all the drugs you take. Before taking this drug, tell your doctor if: - You have a drug allergy and your reaction to it, especially to amiodarone or iodine. - You have a slow heart rate without a working pacemaker - You have thyroid, liver or pulmonary disease - You are , may be or are breast-feeding What are some things I need to know about taking this drug? - Read the ???Amiodarone Initiation?? patient letter you were given at your doctor???s visit. You may have medication changes when you start this drug. - Take this drug as prescribed by your doctor or nurse practitioner, even if you are feeling well. - Call us if another doctor adds ANY new drug as many drugs interact negatively with this one o Antibiotics (Azithromycin, etc) o Celexa (citalopram) or depressants meds o Claritin (loratadine) o Zocor ?40mg (simvastatin) o Zantac (ranitidine) - Keep a list of all of the drugs you are taking with you. Include prescriptions, herbal supplements, vitamins, and over the counter medications. - Tell your primary care doctor, Coumadin clinic, dentists, and other doctors you are on this drug. - Amiodarone can increase your INR while on Coumadin/warfarin. Have your INR checked frequently when starting amiodarone - If you miss a dose, take it as soon as you think about it. If it is close to the time for your next dose, skip the missed dose and go back to your normal time. Do not take 2 doses at the same time or extra doses. - Do not change the dose or stop the drug. Talk with your doctor beforehand. While taking this drug, remember to: - Avoid alcohol as both are processed by the liver and can lead to amiodarone toxicity - Avoid grapefruit and grapefruit juice. Grapefruit affects how this drug is absorbed in the stomach. - Avoid sun, sunlamps, and tanning beds because you may sunburn easily. Use sunscreen and wear clothing and eyewear that protects you from the sun. - Have your blood work and lung function checked before starting and then every 6 months. - Take with or without food, but always take it with food or always take it without food - Amiodarone and Coumadin/Warfarin interact with each other - do not take them together at the sametime. Take amiodarone in the morning and warfarin in the evening. What are some common side effects of this drug? - Upset stomach or throwing up. Many small meals, good mouth care, sucking hard, sugar-free candy, or chewing sugar-free gum may help. - Constipation. Drinking more fluids, working out, or adding fiber to your diet may help. Talk withyour doctor about a stool softener or laxative. - Sunburn. Wear sunscreen, clothing, and eyewear that protects you from the sun. What are some side effects that I need to call my doctor about right away? - If you think there has been an overdose, call ([place] [facility]), your local poison control center (http://www.aapcc.org), or emergency room right away - Signs of allergic reaction: rash; hives; itching; red, swollen, blistered or peeling skin; fever;wheezing; tightness in chest or throat; trouble breathing or talking; unusual hoarseness; or swelling of mouth, face, lips, tongue, or throat - Signs of depression: thoughts of killing yourself, nervousness, emotional ups and downs, thinkingthat is not normal, anxiety, or lack of interest in life - Trouble breathing - Cough that does not go away - Very bad belly pain - Change in thinking clearly and with logic - Not able to handle heat or cold - Shakiness, trouble moving around, or stiffness - A big weight loss or gain - Hair thinning - Neck swelling - Not able to eat - Dark urine or yellow skin or eyes - Very nervous and excitable - Feeling very tired or weak - Numbness or tingling in your hands and feet - Any rash - Side effect or health problem is not better or you are feeling worse How do I store this drug? - Store at room temperature, protected from light, and in a dry place (not a bathroom) General drug facts - If your symptoms or health problems do not get better or if they become worse, call your doctor - Do not share your drugs with others or take anyone else???s drugs - Talk with your doctor before starting any new drug - If you have any questions about this drug, please talk with your doctor or pharmacist. Information was adapted from [facility]???s ???Amiodarone: Patient drug information?? http://www.Checkr/contents/bzevkjionu-iaairrv-rssj-information?source=[facility] ch_result&search=patient+information+amiodarone&selectedTitle=1~150 Discharge References/Attachments EPS (Electrophysiology Study) and Catheter Ablation: Pre-op (Maltese) documented in this encounter Discharge Instructions * Discharge Instructions* Juan Antonio Mathew PA - 12/19/2020 8:46 AM EST WHAT YOU NEED TO KNOW ABOUT AMIODARONE (Cordarone, Nexterone, and Pacerone) Why am I starting this drug? - It is used to treat fast or unsafe heart rhythms. It can potentially affect your lungs, liver, and thyroid. You will be closely watched when starting this drug. Warning: - Sometimes drugs are not safe when you take them with certain other drugs. Taking them together can cause bad side effects. Be sure to talk to your doctors and pharmacist about all the drugs you take. Before taking this drug, tell your doctor if: - You have a drug allergy and your reaction to it, especially to amiodarone or iodine. - You have a slow heart rate without a working pacemaker - You have thyroid, liver or pulmonary disease - You are , may be or are breast-feeding What are some things I need to know about taking this drug? - Read the ???Amiodarone Initiation?? patient letter you were given at your doctor???s visit. You may have medication changes when you start this drug. - Take this drug as prescribed by your doctor or nurse practitioner, even if you are feeling well. - Call us if another doctor adds ANY new drug as many drugs interact negatively with this one o Antibiotics (Azithromycin, etc) o Celexa (citalopram) or depressants meds o Claritin (loratadine) o Zocor ?40mg (simvastatin) o Zantac (ranitidine) - Keep a list of all of the drugs you are taking with you. Include prescriptions, herbal supplements, vitamins, and over the counter medications. - Tell your primary care doctor, Coumadin clinic, dentists, and other doctors you are on this drug. - Amiodarone can increase your INR while on Coumadin/warfarin. Have your INR checked frequently when starting amiodarone - If you miss a dose, take it as soon as you think about it. If it is close to the time for your next dose, skip the missed dose and go back to your normal time. Do not take 2 doses at the same time or extra doses. - Do not change the dose or stop the drug. Talk with your doctor beforehand. While taking this drug, remember to: - Avoid alcohol as both are processed by the liver and can lead to amiodarone toxicity - Avoid grapefruit and grapefruit juice. Grapefruit affects how this drug is absorbed in the stomach. - Avoid sun, sunlamps, and tanning beds because you may sunburn easily. Use sunscreen and wear clothing and eyewear that protects you from the sun. - Have your blood work and lung function checked before starting and then every 6 months. - Take with or without food, but always take it with food or always take it without food - Amiodarone and Coumadin/Warfarin interact with each other - do not take them together at the sametime. Take amiodarone in the morning and warfarin in the evening. What are some common side effects of this drug? - Upset stomach or throwing up. Many small meals, good mouth care, sucking hard, sugar-free candy, or chewing sugar-free gum may help. - Constipation. Drinking more fluids, working out, or adding fiber to your diet may help. Talk withyour doctor about a stool softener or laxative. - Sunburn. Wear sunscreen, clothing, and eyewear that protects you from the sun. What are some side effects that I need to call my doctor about right away? - If you think there has been an overdose, call ([place] [facility]), your local poison control center (http://www.aapcc.org), or emergency room right away - Signs of allergic reaction: rash; hives; itching; red, swollen, blistered or peeling skin; fever;wheezing; tightness in chest or throat; trouble breathing or talking; unusual hoarseness; or swelling of mouth, face, lips, tongue, or throat - Signs of depression: thoughts of killing yourself, nervousness, emotional ups and downs, thinkingthat is not normal, anxiety, or lack of interest in life - Trouble breathing - Cough that does not go away - Very bad belly pain - Change in thinking clearly and with logic - Not able to handle heat or cold - Shakiness, trouble moving around, or stiffness - A big weight loss or gain - Hair thinning - Neck swelling - Not able to eat - Dark urine or yellow skin or eyes - Very nervous and excitable - Feeling very tired or weak - Numbness or tingling in your hands and feet - Any rash - Side effect or health problem is not better or you are feeling worse How do I store this drug? - Store at room temperature, protected from light, and in a dry place (not a bathroom) General drug facts - If your symptoms or health problems do not get better or if they become worse, call your doctor - Do not share your drugs with others or take anyone else???s drugs - Talk with your doctor before starting any new drug - If you have any questions about this drug, please talk with your doctor or pharmacist. Information was adapted from [facility]???s ???Amiodarone: Patient drug information?? http://www.digitalbox.[employer]/contents/xigmezopjo-usilgwi-ymax-information?source=[facility] ch_result&search=patient+information+amiodarone&selectedTitle=1~150 * Patient Instructions* Juan Antonio Mathew PA - 12/19/2020 8:38 AM EST DISCHARGE INSTRUCTIONS 1. Medications as listed above. ?? Amiodarone 400 mg tablet: Take 1 tablet by mouth three times daily x 5 days, then one tablet daily x 7 days, then 200 mg (1/2 tablet) daily thereafter (a new script with lower dose will be sent [facility] long-term). ?? Metoprolol succinate 50 mg tablet: Take 1 tablet by mouth daily ?? Atorvastatin 20 mg tablet: Take 1 tablet by mouth every evening (DECREASED DOSE) 2. Continue other home medications as listed including Eliquis 5 mg twice daily. 3. Review the information below regarding Amiodarone. 4. Follow up in ~1 month in the EP clinic (schedulers will be calling you to set this up). 5. If you have any questions and need to get in touch with the office, please call [phone]. Important Things to Remember While On Amiodarone ?? Do not miss doses or take extra doses of Amiodarone ?? Do not start any other medications, including over the counter meds without first consulting your doctor. ?? Get prescriptions filled and refilled as soon as possible to avoid any disruptions in treatment. ?? DO report any adverse or unusual events. ?? If you experience fainting seek medical attention immediately. Please advise family and friends of this recommendation as well. ?? Please advise any care providers that you take Amiodarone when medications are being changed or added to your regimen. Antiarrhythmic Medication Instructions - Amiodarone You have been started on a category of medication call an Antiarrhythmic Drug. These medicines are typically used to control or reduce the risk of recurrence of abnormal heart rhythms. Many of these medicines are sensitive to changes electrolytes in the body (such as potassium, sodium, etc). Therefore it is recommended that blood work be obtained every 6 months to check electrolytes. Amiodarone can also affect the liver, lungs, thyroid, and eyes. A 12 lead EKG is also recommendedevery 6 months. These can be checked by your primary health provider or key punch teacher if they are agreeable or by the [facility] Electrophysiology group. Amiodarone is a peculiar drug with multiple potential toxic effects which require careful follow up. The side effects include potentially life threatening liver and lung toxicity as well as hypo- andhyper- thyroidism, photosensitivity, skin discoloration, and optic effects with very rare eye toxicity limiting vision. We obtain laboratory work for routine amiodarone monitoring every 3-4 months the first year of therapy and every 6 months after that. This laboratory work includes thyroid tests, liver enzymes, a chest x-ray, and an ECG. Allergic pneumonitis can be lethal if it is not detected quickly and the amiodarone stopped. It is easily confused with heart failure, which can be a crucial mistake. Minor elevations of liver enzymes are common and can be ignored. High elevations of liver enzymes are uncommon and must be taken seriously. Hypothyroidism (and occasional hyperthyroidism) canoccur. Amiodarone raises the T4 level with chronic therapy, so it is not a good guide to hypothyroidism. We empirically treat patients with Synthroid when the TSH doubles over baseline. They only have subclinical hypothyroidism at this point, sparing them the problem of becoming clinically hypothyroid. Patients can develop skin rashes and bad sunburn with sun exposure, as well as a graying of theskin. We recommend covering up in the sun or using a sunscreen. Goldschlamalena N, et al. Heart Rhythm 2007;4:[id number] Heart Rhythm Society Amiodarone Monitoring Recommendations Lab Test Frequency LFT Baseline and every 6 months CXR Baseline and every 12 months PFT's Baseline and prn pulmonary symptoms Thyroid Baseline and every 6 months Eye exam Yearly Reasonable to obtain LFT's, TFT q 4 months for the 1st year * Attachments The following attachments cannot be sent through Care Everywhere. * EPS (Electrophysiology Study) and Catheter Ablation: Pre-op (Maltese) documented in this encounter Medications at Time of Discharge Medication Sig Dispensed Refills Start Date End Date clindamycin (CLINDAGEL) 1 % Gel APPLY TOPICALLY [...] Anxiety. AMIOdarone (PACERONE) 400 mg Tablet Take one [...] 07/16/2017 01/13/2021 documented as of this encounter Progress Notes * Maggie Moyer RCP - 12/19/2020 6:46 AM EST Respiratory Therapy NIV Note NIV Settings: Pt stated home settings are Auto CPAP 6-8cmH2O Ramp 4 over 30 minutes Flex 3 Humidity 3 NIV Measurements: Assessment: Set up auto CPAP with pt's home settings. Large nasal mask. Pt used for only a couple of hours. Plan: Will continue to follow. MAGGIE MOYER RCP * Jag Kahn PA - 12/18/2020 8:19 AM EST Inpatient Cardiac Electrophysiology Progress Note Patient Name: Rolo Aguilar Service: EP Responsible Attending: Breonna Terrell Reason for continued hospitalization: Monitoring atrial fibrillation while continuing amiodarone loading with switch to oral. Active Problems: Diagnosis Code ??? Coronary disease I25.10 ??? Heart palpitations R00.2 ??? Obesity E66.9 ??? Essential hypertension I10 ??? H/O cardiac radiofrequency ablation Z98.890 ??? Flutter-fibrillation I48.91, I48.92 Interval History: Mr Aguilar arrived around 0130 on 12/17 from an OSH in atrial fibrillation/flutter with RVR (rates in the 100's to 140's). Amio running at 1 mg/hr and switched to 0.5 mg/hr at 0500. He had received 1 gm of amiodarone at the outside hospital and then was started on low (maintenance) dose oral amiodarone. This was subsequently increased to loading dose (400 mg BID), but he had recurrent AF. Amiodarone loading (1gm) was restarted and he converted from AF --> SR in the transplant case manager hours of 12/17. IV amiodarone was stopped yesterday afternoon and oral was started last night at 400 mg tid. He got his second dose this morning. He reports feeling well overnight and this morning with no palpitations, SOB, pre-syncope/syncope or other complaints. He is anticoagulated with Apixaban 5 mg bid. He uses CPAP at home and has requested a machine for tonight as he sleeps much better with it. Review of Systems: Constitutional: - fatigue, - fever, - chills Respiratory: - shortness of breath, - cough, - apnea, - wheezing Cardiovascular: - chest pain, - palpitations, - unusual rates Gastrointestinal: - nausea, - vomiting, - abdominal pain, - diarrhea Neurological: - lightheadedness, - dizziness, - syncope, - weakness Psychiatric: - anxious Telemetry: Normal sinus rhythm overnight and this morning with rates currently in the low 60s. Meds: STOPPED Medications clindamycin 1 % Gel Commonly known as: CLINDAGEL hydroCHLOROthiazide 12.5 mg Tab Commonly known as: Hydrodiuril UNREVIEWED medications - Discuss With Your Provider Dose Details acetaminophen 325 mg Tab Commonly known as: Tylenol Take 2 tablets by mouth every 6 hours as needed for Pain. 650 mg Quantity: 30 tablet Refills: 1 AMIOdarone 200 mg Tab Commonly known as: Cordarone; Pacerone Take 200 mg by mouth 2 times daily. 200 mg Refills: 0 apixaban 2.5 mg Tab Commonly known as: Eliquis Take 5 mg by mouth 2 times daily. 5 mg Refills: 0 aspirin EC 81 mg Tbec Take 1 tablet by mouth daily. 81 mg Quantity: 30 tablet Refills: 3 atorvastatin 80 mg Tab Commonly known as: Lipitor Take 1 tablet by mouth every evening. 80 mg Quantity: 90 tablet Refills: 3 clonazePAM 1 mg Tab Commonly known as: KlonoPIN Take 1 mg by mouth 2 times daily as needed for Anxiety. 1 mg Refills: 0 lamoTRIgine 200 mg Tab Commonly known as: LaMICtal Take 1 tablet by mouth daily. 200 mg Quantity: 30 tablet Refills: 3 lisinopriL 2.5 mg Tab Commonly known as: Prinivil;Zestril Take 1 tablet by mouth daily. 2.5 mg Quantity: 90 tablet Refills: 3 metoprolol succinate XL 50 mg Tablet sr Commonly known as: Toprol-XL Take 50 mg by mouth daily. Ask about: Which instructions should I use? 50 mg Refills: 0 nitroGLYcerin 0.4 mg Subl Commonly known as: Nitrostat DISSOLVE 1 UNDER TONGUE NEEDED Refills: 4 pantoprazole EC 40 mg Tbec Commonly known as: Protonix Take 1 tablet by mouth 2 times daily. 40 mg Quantity: 180 tablet Refills: 3 Vital Signs: Last value Range last 8 hrs Temperature Temp: 36.6 ??C (97.9 ??F) Temp: [36.6 ??C (97.9 ??F)] Heart Rate Heart Rate: 63 Heart Rate: [63] Blood Pressure BP: 115/65 BP: (115)/(65) Respiratory Rate Resp: 15 Resp: [15] SpO2 SpO2: 98 % SpO2: [98 %] Physical Exam: General- No acute distress, laying comfortably in bed Skin- Warm and dry Neck- No JVD noted Cardiovascular- S1/S2 regular rate and rhythm. No murmur, rub or gallop Lungs- Clear to auscultation bilaterally Extremities- Pulses equal bilaterally. No edema noted. Neuro- A&Ox3 Lab Results Component Value Date WBC 8.8 2020 HGB 14.4 2020 HCT 43.6 2020 PLATELET 172 2020 12/17/20; 031 INR 1.5 Component Value Date NA 137 12/18/2020 K 3.9 12/18/2020 CL 105 12/18/2020 BUN 9 (L) 2020 CREATININE 0.92 2020 MAGNESIUM 0.84 2020 Assessment: - 50 y.o. male w/ hx of morbid obesity, SVT s/p ablation (07/10/2020), paroxysmal AF (on apixaban),??ASCVD (s/p NSTEMI, EMMY to OM1 in 07/2017), HTN, sleep apnea, RICARDO who was transferred from [facility] due to recurrent and difficult to control Atrial flutter with RVR. - Currently in sinus rhythm in the 60s with no complaints. - Transitioned from IV to oral amiodarone 400 mg tid last night. - Anticoagulated on Apixaban 5 mg bid. - Metoprolol 50 mg bid Plan: - Continue amiodarone 400 mg tid. - Continue apixaban 5 mg bid. - Titrate metoprolol as needed if pt becomes bradycardic - Continue other home meds - Monitor tele for another 24 hrs - Will consult respiratory therapy for CPAP - If maintains sinus rhythm, discharge tomorrow - Return for ablation procedure with Dr Escobar early January SONNY Frank 12/18/2020 Associated attestation - Breonan Terrell MD - 12/18/2020 11:16 AM EST Staff addendum: I have seen and evaluated the patient, and reviewed the available medical records. I agree with the findings, physical examination, and assessment of Mr. Kahn as detailed below. Bib has done well overnight since switching to oral amiodarone and he feels well. Since he was backand forth so much with AF, we have agreed that he would stay for another day for monitoring. Breonna Terrell MD 12/18/2020 11:15 AM documented in this encounter H&P Notes * Wes Nina MD - 2020 5:25 AM EST Cardiology History and Physical Patient Name: Rolo Aguilar Date of : 1970 Age: 50 y.o. Hospital Admit Date: 2020 PCP: Bin Bowman MD Presenting Diagnosis/Chief Complaint: A flutter with RVR Active Problem List: Active Hospital Problems Diagnosis ??? Flutter-fibrillation Resolved Hospital Problems No resolved problems to display. History of Present Illness: HPI Rolo Aguilar is a 50 y.o. male w/ hx of morbid obesity, SVT s/p ablation (07/10/2020), paroxysmal AF (on apixaban), ASCVD (s/p NSTEMI, EMMY to OM1 in 07/2017), HTN, sleep apnea, RICARDO who was transferred from [facility] due to recurrent A flutter with RVR. The patient has been presenting to OSH daily for the past three days with symptoms of palpitations,dizziness, and SOB and is noted to be in RVR. He denies any CP or syncope. On 12/14 the patient firstpresented and was noted to be in RVR in the 160s. He was given Diltiazem 20 mg IVP and Bolus and HRdecreased to the 90s before converting to SVT which broke spontaneously and the patient was discharged. The patient presented the next day with similar symptoms and was noted to be in RVR. He was started on Dilt gtt which was ineffective and the patient was cardioverted and discharged home with increased doses of home meds metoprolol (25 to 50 mg daily) and Amiodarone (200 daily to BID). Yesterday, the patient presented in AM with a similar presentation and was cardioverted and discharged with EP follow up on Friday. The patient returned to the Hospital in the afternoon after having a recurrence of his RVR. Of note, the patient had SVT in April 2020 and was given Adenosine and he reverted to a faster WCT necessitating DCCV to SR. 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 At OSH, the patient was given Amio Bolus and started on drip. Troponin was negative and EKG with RVR and no significant ischemic changes. He was noted to be HD stable. On our encounter, the patient was noted to be comfortable and NAD and he denied any sx or cc. He presented on Amio gtt which had started at around 10:30PM. Overnight the patient converted to SR. Past Medical History: Past Medical History: Diagnosis Date ??? A-fib ??? Anxiety ??? CAD (coronary artery disease) ??? Flutter-fibrillation ??? GERD (gastroesophageal reflux disease) ??? HLD (hyperlipidemia) ??? Hypertension ??? Seizure Surgical History/Problems: Past Surgical History: Procedure Laterality Date ??? PRO LAP, CHOLECYSTECTOMY/GRAPH N/A 07/21/2018 LAPAROSCOPIC CHOLECYSTECTOMY WITH CHOLANGIOGRAM (WRVU 11.47) performed by Colt Hewitt MD [facility] MAIN OR ??? PRO UNLISTED LAPAROSCOPIC PX LVR N/A 07/21/2018 LAPAROSCOPIC LIVER BIOPSY (WRVU 16.52) performed by Colt Hewitt MD at [facility] MAIN OR ??? PRO UPPER GI ENDOSCOPY, BIOPSY N/A 12/29/2017 UPPER GASTROINTESTINAL ENDOSCOPY,WITH BIOPSY SINGLE OR MULTIPLE (WRVU 2.49) performed by Yusuf Tucker MD at [facility] ENDOSCOPY ??? PRO UPPER GI ENDOSCOPY, DIAGNOSTIC N/A 12/29/2017 EGD, UPPER GI ENDOSCOPY performed by Yusuf Tucker MD at [facility] ENDOSCOPY ??? TONSILLECTOMY Significant Family History: Family [...] of Exercise per Session: Not on file REVIEW OF SYSTEMS: General ROS: No fatigue or weakness. Psychological: no anxiety / Depression Ophthalmic: No blurred vision or watery or red eyes. ENT: Negative for ear discharge or running nose or cold or throat swelling. Allergy: negative for itchy/watery eyes Heme: Negative for bleeding, bruising, fatigue, jaundice, night sweats Endocrine: negative for polydipsia/polyuria/ heat intolerance Respiratory: As in HPI CVS: As in HPI GI: No abd pain, change in bowel habits, or black or bloody stools Genitourinary: No dysuria, trouble voiding, or hematuria MSK: negative for joint pain, joint stiffness or joint swelling Neurological: No TIA or stroke symptoms PHYSICAL EXAM: Last set of vital signs: BP 157/76 (BP Location (NBP): Right arm, Patient Position: Lying) Pulse (!) 137 Resp 23 Wt (!) 185.2 kg (408 lb 4.7 oz) SpO2 99% BMI 65.90 kg/m?? Gen/Constitutional: Comfortable and NAD. Morbidly obese male HEENT: VISHAL, EOMI, No conjunctival pallor or scleral icterus. Cardiac/CVS: Irregularly irregular rhythm. NL s1, s2. No MRG Pulm/Chest: CTAB Abd/GI: Soft. No distention or tenderness. Musculoskeletal: no peripheral edema . Pulses palpable B/L, no calf tenderness, swelling, or erythema. Neuro/IRONWORKER MACHINE OPERATOR: AAO x 3, No gross motor deficits. No sensory loss. No gait ataxia. LABS: Recent Results (from the past 24 hour(s)) COVID-19 PCR Specimen: Nasopharyngeal Swab Symptoms->Surveillance Result Value Ref Range Rapid SARS-CoV-2 RNA Not Detected Not Detected SARS-CoV-2 Source SECURITY SYSTEM ADMINISTRATOR Swab Basic Metabolic Panel (non-fasting) Result Value Ref Range Glucose Lvl 110 65 - 199 mg/dL BUN 9 (L) 10 - 20 mg/dL Creatinine 0.92 0.80 - 1.50 mg/dL Sodium 141 135 - 145 mmol/L Potassium 3.6 3.5 - 5.0 mmol/L Chloride 106 98 - 107 mmol/L CO2 25 22 - 31 mmol/L Anion Gap 10 5 - 15 mmol/L Calcium 9.1 8.5 - 10.5 mg/dL Estimated GFR 96 >=60 mL/min/1.73 m?? Magnesium Result Value Ref Range Magnesium 0.84 0.69 - 1.07 mmol/L Phosphorus Result Value Ref Range Phosphorus 3.0 2.5 - 4.5 mg/dL TSH Result Value Ref Range TSH 2.75 0.27 - 4.20 mcIU/mL pro-Brain Natriuretic Peptide Result Value Ref Range ProBNP 654 (H) <=125 pg/mL Hepatic Function Panel Result Value Ref Range Total Protein 6.9 6.1 - 8.0 gm/dL Albumin 3.7 3.2 - 5.2 gm/dL AST 18 0 - 39 unit/L ALT 29 0 - 55 unit/L Alk Phos 66 40 - 130 unit/L Total Bilirubin 0.5 0.2 - 1.3 mg/dL Bili, Direct 0.2 0.0 - 0.3 mg/dL Prothrombin Time Result Value Ref Range PT 16.7 (H) 9.4 - 12.5 sec INR 1.5 APTT Result Value Ref Range PTT 36 25.0 - 37.0 sec Lipid Panel (Reflex Direct LDL) Result Value Ref Range Chol, Total 89 mg/dL Triglycerides 75 mg/dL HDL 35 mg/dL LDL Cholesterol 39 mg/dL Chol/HDL Ratio 2.5 ratio Lipid Interpretation See Note Hemoglobin A1c Result Value Ref Range Hemoglobin A1C 5.2 4.3 - 5.6 % Est Avg Gluc 104 mg/dL Hemogram Result Value Ref Range WBC 8.8 4.0 - 9.5 x10(3)/mcL RBC 5.21 4.58 - 5.54 x10(6)/mcL Hemoglobin 14.4 13.7 - 16.5 gm/dL Hematocrit 43.6 40.5 - 48.5 % MCV 83.7 82.9 - 93.1 fL MCH 27.6 27.5 - 32.1 pg MCHC 33.0 32.0 - 35.7 gm/dL Platelets 172 145 - 357 x10(3)/mcL RDWSD 41.3 36.0 - 45.0 fL RDWCV 13.6 11.4 - 13.8 % MPV 9.7 7.6 - 12.9 fL nRBC % Auto 0.0 % nRBC Abs Auto 0.000 0.000 - 0.000 x10(3)/mcL Differential, Automated Result Value Ref Range Neutrophils % 63.7 % Neutr Abs (ANC) 5.57 1 - 6 x10(3)/mcL Lymphocytes % 26.8 % Lymphocytes Abs 2.4 0.9 - 3.2 x10(3)/mcL Monocytes % 6.8 % Monocyte Abs 0.6 0.3 - 0.9 x10(3)/mcL Eosinophils % 1.9 % Eosinophils Abs 0.2 0.0 - 0.4 x10(3)/mcL Basophils % 0.6 % Basophils Abs 0.0 0.0 - 0.1 x10(3)/mcL Immature Gran % 0.20 % Amy Gran Abs 0.02 0.00 - 0.04 x10(3)/mcL A&P: Rolo Aguilar is a 50 y.o. male w/ hx of morbid obesity, SVT s/p ablation (07/10/2020), paroxysmal AF (on apixaban), ASCVD (s/p NSTEMI, EMMY to OM1 in 07/2017), HTN, sleep apnea, RICARDO who was transferred from [facility] due to recurrent and difficult to control A flutter with RVR. #A flutter with RVR, controlled now, in SR at present #SVT s/p ablation (07/10/2020) #paroxysmal AF (on apixaban) #ASCVD (s/p NSTEMI, EMMY to OM1 in 07/2017) #HTN #sleep apnea Admit to cardiology Telemetry monitoring Labs EKG C/w Amio loading C/w home meds Echo in AM EP consult HM: Full Code Heart healthy diet DVT ppx: On Apixaban at home Wes Nina MD 2020 Associated attestation - Breonna Terrell MD - 2020 9:28 AM EST Staff addendum: I have seen and evaluated the patient, and reviewed the available medical records. I agree with the findings, physical examination, and assessment of Dr. Nina as detailed below. Salient features of the presentation include that this patient has had prior ablation of CTI-dependent flutter and AVNRT and has been struggling with AFl and AF for the past week with multiple presentations to the [facility]. He has had recurrence of atrial flutter and evidence of atrial fibrillation over the past week for which he has been started on amiodarone. He received 1 gm of amiodarone at the outside hospital and then was started on low (maintenance) dose oral amiodarone. This was subsequently increased to loading dose (400 mg BID), but he had recurrent AF. Amiodarone loading (1gm) was restarted and will be completed around 11 pm tonight. He converted from AF --> SR in the transplant case manager hours. We discussed how amiodarone works and that it can take a while to achieve therapeutic levels due tothe volume of distribution especially in a large patient (BMI > 65). We will complete this second 1 gm load of amiodarone and then switch to high dose oral loading dose (400 mg TID) with some overlap and monitor for another day to try and avoid the events following the first load. In addition, BB was switched to long acting version. He is scheduled for repeat EPS/RFA with Dr. Escobar in January. The goal is to find an effective suppressive AAD regimen in advance of that planned procedure. This is far preferable to an inpatient ablation procedure (especially in light of the logistical challenges of the latter approach). This plan was conveyed to the patient and his , Autumn, via phone. Breonna Terrell MD 2020 8:51 AM documented in this encounter Miscellaneous Notes * Initial Assessments - Kinga Santiago RN - 12/18/2020 11:57 AM EST Office of Care Management Assessment Medical record reviewed. Plan of care and patient status discussed with direct care RN and/or Care Team in multidisciplinary rounds. Screening: Last COVID test: 12/17/20 Not detected 50 y.o. male here for evaluation and management of atrial fibrillation. Present on Admission: ??? Flutter-fibrillation Patient /has not been admitted to a hospital within the last 30 days. Patient receiving hospital care under Inpatient status. Admission order reviewed. Primary Insurance on file: MEDICAID [place] Secondary Insurance on file:@ Primary care provider on file: Bin Bowman MD [phone] Advance Directive on file and Code Status: <no information>, Attempt Cardiopulmonary Resuscitation - Inpatient Patient???s Functional Status: Independent Living Situation: lives with Autumn at [address] [place] [address] Supports:Autumn Aguilar (Spouse) Assessment: Patient with no apparent RNCM/SW needs at this time. No housing, transportation, insurance, resources concerns identified at this time. Supports in place to achieve a safe post-hospital transition. No identified barriers to accessing necessary care and/or follow-up after discharge. Plan: Patient to d/c to home when medically ready. to transport when discharged lasting machine operator bed/Distribution Center Assistant will continue to follow patient???s progress and remain available if situation changes for coordination of care, psychosocial support and/or discharge planning. Office of Care Management CM: Pager: * Plan of Care - Ismael Vallejo RN - 2020 6:34 AM EST Pt arrived around 0130 from OSH. Afib RVR with rates in the 100's to 140's. Amio running at 1 mg/hrand switched to 0.5 mg/hr at 0500. Converted to SR around 0315 with rates in the 60's to 70's. No complaints of CP or SOB overnight. Rested comfortably between care. NPO for possible cardioversion. documented in this encounter Plan of Treatment Upcoming Encounters Date Type Department Care Team (Latest Contact Info) Description 06/07/2024 2:00 PM EDT Office [place] [phone] Joan Castro MD [facility] [place] [address] 06/11/2024 1:03 PM EDT Hospital Encounter [place] [phone] Rachel Carrasco MD [facility] [place] [address] 06/11/2024 1:03 PM EDT - 06/11/2024 1:58 PM EDT Surgery [place] [phone] Rachel Carrasco MD [facility] [place] [address] CYSTO, REMOVAL OF STENT, FOREIGN BODY OR CALCULUS, SIMPLE (WRVU 2.81) 06/23/2024 10:00 AM EDT Office Visit Cardiology at [address] [phone] Mo Horne MD [facility] [place] [address] Scheduled Procedures Name Priority Associated Diagnoses Date/Ti me CYSTO, REMOVAL OF STENT, FOR EIGN BODY OR CALCULUS, SIMPLE (WRVU 2.81) NEPHROLITHIASIS 06/11/2024 1:03 PM EDT documented as of this encounter Procedures Procedure Name Priority Date/Time Associated Diagnosis Comments HC VENIPUNCTURE Routine 12/19/2020 5:02 AM EST HC VENIPUNCTURE Routine 12/18/2020 4:03 AM EST HEMOGRAM Routine 2020 3:11 AM EST DIFFERENTIAL, AUTOMATED Routine 12/17/19 3:11 AM EST HC PARTIAL THROMBOPLASTIN TIME Routine 2020 3:11 AM EST HC PROTHROMBIN TIME Routine 2020 3 :11 AM EST HC VENIPUNCTURE Routine 2020 3:11 AM EST HC THYROID STIMULATING HORMONE, SERUM Routine 2020 3:11 AM EST HC PHOSPHORUS, SERUM Routine 2020 3:11 AM EST HC PROBNP Routine 2020 3:11 AM EST HC MAGNESIUM, SERUM Routine 2020 3 :11 AM EST HC HEMOGLOBIN A1C Routine 2020 3:1 1 AM EST HEPATIC FUNCTION PANEL Routine 3:11 AM EST LIPID PANEL (REFLEX DIRECT LDL) Routine 2020 3:11 AM EST BASIC METABOLIC PANEL (NON-FASTING) Routine 2020 3:11 AM EST EKG 12-LEAD Routine 2020 2:40 AM EST Coronary disease Flutter-fibrillati on RAPID COVID-19 PCR ([facility]) Routine 2020 2:15 AM EST documented in this encounter Results * Electrolytes panel (12/19/2020 5:02 AM EST) Sodium 138 135 - 145 mmol/L [facility] Potassium 4.2 3.5 - 5.0 mmol/L [facility] Comment: Please note: ??Patients with WBC >100,000 may have falsely elevated Potassium levels. ??For accurate Potassium quantification in these patients send serum separator tube (gold top) for subsequent determinations. ??Contact the Clinical Chemistry Laboratory if there are any questions. Chloride 104 98 - 107 mmol/L [facility] CO2 27 22 - 31 mmol/L [facility] Anion Gap 7 5 - 15 mmol/L [facility] Blood specimen (specimen) 12/19/2020 5:02 AM EST 12/19/2020 5:31 AM EST Narrative Resulting Agency Comment Spec In Lab Wes Nina MD CHEMISTRY ORDERABLES Performing Organization Address [facility] Co de Phone Number [facility] [place] [address] * Electrolytes panel (12/18/2020 4:03 AM EST) Sodium 137 135 - 145 mmol/L [facility] Potassium 3.9 3.5 - 5.0 mmol/L [facility] Comment: Please note: ??Patients with WBC >100,000 may have falsely elevated Potassium levels. ??For accurate Potassium quantification in these patients send serum separator tube (gold top) for subsequent determinations. ??Contact the Clinical Chemistry Laboratory if there are any questions. Chloride 105 98 - 107 mmol/L [facility] CO2 25 22 - 31 mmol/L [facility] Anion Gap 7 5 - 15 mmol/L [facility] Blood specimen (specimen) 12/18/2020 4:03 AM EST 12/18/2020 4:24 AM EST Narrative Resulting Agency Comment Spec In Lab Wes Nina MD CHEMISTRY ORDERABLES Performing Organization Address [facility] Co de Phone Number [facility] [place] [address] * Differential, Automated (2020 3:11 AM EST) Neutrophils % 63.7 % [facility] Neutr Abs (ANC) 5.57 1.70 - 6.10 x10(3)/[facility] Lymphocytes % 26.8 % [facility] Lymphocytes Abs 2.4 0.9 - 3.2 x10(3)/[facility] Monocytes % 6.8 % [facility] Monocyte Abs 0.6 0.3 - 0.9 x10(3)/[facility] LABORATORY Eosinophils % 1.9 % [facility] Eosinophils Abs 0.2 0.0 - 0.4 x10(3)/[facility] LABORATORY Basophils % 0.6 % [facility] Basophils Abs 0.0 0.0 - 0.1 x10(3)/[facility] Immature Gran % 0.20 % [facility] Comment: Immature granulocytes(IG's)percentage and absolute count will include metamyelocytes, myelocytes, and promyelocytes. Blood smears from CBCs yielding IG's will be scanned manually for concordance. If this scan disagrees with the automated IG or if promyelocytes are noted, a manual differential will be performed. Amy Gran Abs 0.02 0.00 - 0.04 x10(3)/[facility] [facility] Blood specimen (specimen) 2020 3:11 AM EST 2020 3:23 AM EST Narrative Resulting Agency Comment Spec In Lab Wes Nina MD HEMATOLOGY ORDERABLE S [facility] [place] [address] * Hemogram (2020 3:11 AM EST) WBC 8.8 4.0 - 9.5 x10(3)/[facility] LABORATORY RBC 5.21 4.58 - 5.54 x10(6)/[facility] LABORATORY Hemoglobin 14.4 13.7 - 16.5 gm/dL [facility] Hematocrit 43.6 40.5 - 48.5 % [facility] MCV 83.7 82.9 - 93.1 [facility] LABORATORY MCH 27.6 27.5 - 32.1 pg [facility] MCHC 33.0 32.0 - 35.7 gm/dL [facility] Platelets 172 145 - 357 x10(3)/[facility] LABORATORY RDWSD 41.3 36.0 - 45.0 [facility] LABORATORY RDWCV 13.6 11.4 - 13.8 % [facility] MPV 9.7 7.6 - 12.9 [facility] LABORATORY nRBC % Auto 0.0 % [facility] LABORATORY nRBC Abs Auto 0.000 0.000 - 0.000 x10(3)/[facility] LABORATORY Blood specimen (specimen) 2020 3:11 AM EST 2020 3:23 AM EST Narrative Resulting Agency Comment Spec In Lab Wes Nina MD HEMATOLOGY ORDERABLE S [facility] [place] [address] * Hemoglobin A1c (2020 3:11 AM EST) Hemoglobin A1C 5.2 4.3 - 5.6 % [facility] Comment: Reference Range: 4.3 - 5.6% 5.7 - 6.4% - Increased Risk of Developing Diabetes Mellitus >= 6.5% - Consistent with diagnosis of Diabetes Mellitus In the absence of hyperglycemia (i.e. plasma glucose > 200 mg/dL) or classic symptoms of hyperglycemia a repeat measurement of HbA1c should be performed on a separate sample to confirm the diagnosis. Diagnosis and Classification of Diabetes Mellitus, Diabetes Care 2013; 36: Suppl. 1, L47-68 Est Avg Gluc 104 mg/dL [facility] Comment: eAG equivalents for HbA1c percentages: HbA1c(%) ?eAG(mg/dL) 6.0 ?126 6.5 ?140 7.0 ?154 7.5 ?169 8.0 ?183 8.5 ?197 9.0 ?212 9.5 ?226 10.0 ? 240 Limitations: The eAG calculation has not been validated on women, individuals below 18 years old and above 70 years old, and individuals with hemoglobinopathies. Additional resources are available on the ADA website. Isak TORRES, Diann J, Saskia R, et al. ??Translating the A1C assay into estimated average glucose values. ??Diabetes Care 2008:31(8):1861-4922. Blood specimen (specimen) 2020 3:11 AM EST 2020 3:23 AM EST Narrative Resulting Agency Comment Spec In Lab Wes Nina MD CHEMISTRY ORDERABLES [facility] [place] [address] * Lipid Panel (Reflex Direct LDL) (2020 3:11 AM EST) Chol, Total 89 mg/dL [facility] Comment: Lower Risk: <200 mg/dL Average Risk: 200-239 mg/dL Higher Risk: >ud=973 mg/dL Triglycerides 75 mg/dL [facility] Comment: Average Risk/Lower Risk: <150 mg/dL Borderline High Risk: 150-199 mg/dL High Risk: 200-499 mg/dL Very High Risk: >sv=072 mg/dL HDL 35 mg/dL [facility] Comment: Males: ?? Higher Risk: <40 mg/dL Females: ?? HIgher Risk: <50 mg/dL LDL Cholesterol 39 mg/dL [facility] Comment: Lowest Risk: <100 mg/dL Lower Risk: 100-129 mg/dL Borderline High Risk: 130-159 mg/dL High Risk: 160-189 mg/dL Very High Risk: >ld=622 mg/dL Chol/HDL Ratio 2.5 ratio [facility] Lipid Interpretation See Note [facility] Comment: Lipid management should be guided by a patient? s ASCVD risk, goals and preferences. ACC/AHA Guidelines recommend high intensity statin if clinical ASCVD or LDL greater than or equal to 190 mg/dL. http://[email or web address]/ZCR-VLB-Nhzfgeipu Adults aged 40-75 with LDL 70-189 mg/dL should have their 10 year ASCVD risk estimated with the ACC/AHA ASCVD risk motorcycle mechanic apprentice http://tools.acc.org/VIUUL-Kwyl-Fetazglah/ Statin should be discussed if risk greater than or equal to 7.5% in non-diabetics. With diabetes, moderate intensity statin is recommended if risk less than 7.5%, high intensity if risk greater than or equal to 7.5%. Annual lipid monitoring on statins is not necessary. Evaluate secondary causes of Triglycerides greater than 500 mg/dL or LDL greater than 190 mg/dL: See table 6 of ACC/AHA Guideline. Lifestyle modification is a critical component of ASCVD risk reduction. Blood specimen (specimen) 2020 3:11 AM EST 2020 3:23 AM EST Narrative Resulting Agency Comment Spec In Lab Wes Nina MD CHEMISTRY ORDERABLES [facility] [place] [address] * APTT (2020 3:11 AM EST) PTT 36 25 - 37 sec [facility] Comment: The PTT is NOT appropriate for heparin monitoring. Use the Anti-Xa level for heparin monitoring (HEP UFH) or LMWH monitoring (HEP LMW). A PTT less than 37 seconds generally indicates adequate hemostasis. Blood specimen (specimen) 2020 3:11 AM EST 2020 3:23 AM EST Narrative Resulting Agency Comment Spec In Lab Wes Nina MD HEMATOLOGY ORDERABLE S Performing Organization Address [facility] de Phone Number [facility] [place] [address] * (ABNORMAL) Prothrombin Time (2020 3:11 AM EST) PT 16.7(H) 9.4 - 12.5 sec [facility] INR 1.5 [facility] Comment: An INR <2.0 indicates [...] depending on clinical circumstances. Blood specimen (specimen) 2020 3:11 AM EST 2020 3:23 AM EST Narrative Resulting Agency Comment Spec In Lab Wes Nina MD HEMATOLOGY ORDERABLE S Performing Organization Address [facility] de Phone Number [facility] [place] [address] * Hepatic Function Panel (2020 3:11 AM EST) Total Protein 6.9 6.1 - 8.0 gm/dL [facility] Albumin 3.7 3.2 - 5.2 gm/dL [facility] AST 18 0 - 39 unit/L [facility] ALT 29 0 - 55 unit/L [facility] Alk Phos 66 40 - 130 unit/L [facility] Total Bilirubin 0.5 0.2 - 1.3 mg/dL [facility] Bili, Direct 0.2 0.0 - 0.3 mg/dL [facility] Blood specimen (specimen) 2020 3:11 AM EST 2020 3:23 AM EST Narrative Resulting Agency Comment Spec In Lab Wes Nina MD CHEMISTRY ORDERABLES Performing Organization Address City/[facility]/ZIP Co de Phone Number [facility] [place] [address] * (ABNORMAL) pro-Brain Natriuretic Peptide (2020 3:11 AM EST) ProBNP 654(H) <=125 pg/mL [facility] Blood specimen (specimen) 2020 3:11 AM EST 2020 3:23 AM EST Narrative Resulting Agency Comment Spec In Lab Wes Nina MD CHEMISTRY ORDERABLES Performing Organization Address City/[facility]/ZIP Co de Phone Number [facility] [place] [address] * TSH (2020 3:11 AM EST) TSH 2.75 0.27 - 4.20 mcIU/mL [facility] Blood specimen (specimen) 2020 3:11 AM EST 2020 3:23 AM EST Narrative Resulting Agency Comment Spec In Lab Wes Nina MD CHEMISTRY ORDERABLES Performing Organization Address City/[facility]/ZIP Co de Phone Number [facility] [place] [address] * Phosphorus (2020 3:11 AM EST) Phosphorus 3.0 2.5 - 4.5 mg/dL [facility] Blood specimen (specimen) 2020 3:11 AM EST 2020 3:23 AM EST Narrative Resulting Agency Comment Spec In Lab Wes Nina MD CHEMISTRY ORDERABLES Performing Organization Address City/[facility]/ZIP Co de Phone Number [facility] [place] [address] * Magnesium (2020 3:11 AM EST) Magnesium 0.84 0.69 - 1.07 mmol/L [facility] Blood specimen (specimen) 2020 3:11 AM EST 2020 3:23 AM EST Narrative Resulting Agency Comment Spec In Lab Wes Nina MD CHEMISTRY ORDERABLES Performing Organization Address [facility] Co de Phone Number [facility] [place] [address] * (ABNORMAL) Basic Metabolic Panel (non-fasting) (2020 3:11 AM EST) Pathologist [facility] Glucose Lvl 110 65 - 199 mg/dL [facility] Comment:Diabetes: >=200 mg/d L plus symptoms BUN 9(L) 10 - 20 mg/dL [facility] Creatinine 0.92 0.80 - 1.50 mg/dL [facility] Sodium 141 135 - 145 mmol/L [facility] Potassium 3.6 3.5 - 5.0 mmol/L [facility] Comment: Please note: ??Patients with WBC >100,000 may have falsely elevated Potassium levels. ??For accurate Potassium quantification in these patients send serum separator tube (gold top) for subsequent determinations. ??Contact the Clinical Chemistry Laboratory if there are any questions. Chloride 106 98 - 107 mmol/L [facility] CO2 25 22 - 31 mmol/L [facility] Anion Gap 10 5 - 15 mmol/L [facility] Calcium 9.1 8.5 - 10.5 mg/dL [facility] Estimated GFR 96 >=60 mL/min/1. 73 m?? [facility] Comment: This patient? s estimated glomerular filtration rate (eGFR) is between 96 mL/min/1.73 m2 (patients with less muscle mass per kg body weight) and 111 mL/min/1.73 m2 (patients with more muscle mass [...] in addition to eGFR. Blood specimen (specimen) 2020 3:11 AM EST 2020 3:23 AM EST Narrative Resulting Agency Comment Spec In Lab Wes Nina MD CHEMISTRY ORDERABLES Performing Organization Address [facility] Co de Phone Number [facility] [place] [address] * EKG 12 Lead (2020 2:40 AM EST) Ventricular rate 100 BPM MUSE SYSTEM Atrial Rate 286 BPM MUSE SYSTEM QRS Duration 96 ms MUSE SYSTEM Q-T Interval 350 ms MUSE SYSTEM QTC Calculated (Bezet) 451 ms MUSE SYSTEM Calculated R [place] 35 degrees MUSE SYSTEM Calculated T [place] 32 degrees MUSE SYSTEM INTERPRETATION Atrial fibrillation with rapid ventricular response Abnormal ECG When compared with ECG of 06-SEP-2020 14:03, Atrial fibrillation has replaced Sinus rhythm Confirmed by MD Terrell Emily P. ([id number]) on 2020 12:49:35 PM MUSE SYSTEM 2020 2:40 AM EST 2020 12:49 PM EST Wes Nina MD ECG ORDERABLES Performing Organization Address [facility] Co de Phone Number MUSE SYSTEM * COVID-19 PCR (2020 2:15 AM EST) Pathologist [facility] SARS-CoV-2 RNA PCR Not Detected Not Detected [facility] Comment: This result should be [...] using the Simplexa COVID-19 Direct Assay by [employer] as authorized by the FDA issued Emergency [...] Department of Pathology and Laboratory Medicine at [facility], certified under the Clinical Laboratory Improvement Amendments [...] fact sheets at the following FDA website: https://www.fda.gov/medical-devices/ytltinbkxwy-mwrxrot-1568-onyeo-02-yggkhzbkk- use-a rhyjnlrtryapf-hyzibnr-hjiwwuz/ilpix-uspllwonhfl-zqjr SARS-CoV-2 Source SECURITY SYSTEM ADMINISTRATOR Swab [facility] Nasopharyngeal swab (specimen) 2020 2:15 AM EST 2020 3:28 AM EST Comment:Symptoms->Surveillan ce Narrative Resulting Agency Comment Spec In Lab Wes Nina MD MICROBIOLOGY - GENER AL ORDERABLES [facility] [place] [address] documented in this encounter Visit Diagnoses Diagnosis Coronary disease Flutter-fibrillation Other premature beats Flutter-fibrillation Other premature beats documented in this encounter Admitting Diagnoses Diagnosis Flutter-fibrillation Other premature beats documented in this encounter Administered Medications Inactive Administered Medications - up to 3 most recent administrations Medication Order MAR Action Action Date Dose Rate Site AMIOdarone (Cordarone) (1.8 mg/mL) in dextrose 5% 200 mL infusion 0.5-1 mg/min (16.6667-33.3333 mL/hr, rounded to 16.7-33.3 mL/hr), Intravenous, CONTINUOUS, Starting on Fri12/17/20 at 0300, Until Fri12/18/20 at 1437, Slow Load. Initiate loading infusion (slow): 1 mg/minute over 6 hours, then decrease to maintenance infusion: 0.5 mg/minute over 18 hours. At 24 hours from start time, call MD regarding infusion or change to oral dosing. New Bag 2020 3:14 PM EST 0.5 mg/min 16.7 mL/hr New Bag 2020 5:15 AM EST 0.5 mg/min 16.7 mL/hr New Bag 2020 2:35 AM EST 1 mg/min 33.3 mL/hr AMIOdarone (Cordarone; Pacerone) tablet 400 mg 400 mg, Oral, 3 TIMES DAILY, First dose on Fri12/17/20 at 2300, Until Discontinued, Routine Given 12/19/2020 8:33 AM EST 400 mg Given 12/18/2020 8:23 PM EST 400 mg Given 12/18/2020 2:33 PM EST 400 mg apixaban (Eliquis) tablet 5 mg 5 mg, Oral, 2 TIMES DAILY, First dose on Fri12/17/20 at 0900, Until Discontinued, Anticoagulant, Routine, Restricted anticoagulant, choose the most appropriate response: Approved indication of non-valvular atrial fibrillation Given 12/19/2020 8:34 AM EST 5 mg Given 12/18/2020 8:23 PM EST 5 mg Given 12/18/2020 8:32 AM EST 5 mg aspirin EC tablet 81 mg 81 mg, Oral, DAILY, First dose on 12/17/20 at 0900, Until Discontinued, Routine Given 12/19/2020 8:33 AM EST 81 mg Given 12/18/2020 8:32 AM EST 81 mg Given 2020 8:20 AM EST 81 mg atorvastatin (Lipitor) tablet 80 mg 80 mg, Oral, EVERY EVENING, First dose on 12/17/20 at 1700, Until Discontinued, Routine Given 12/18/2020 4:12 PM EST 80 mg Given 2020 5:04 PM EST 80 mg clonazePAM (KlonoPIN) tablet 1 mg 1 mg, Oral, ONCE PRN, 1 dose, Starting on Fri12/18/20 at 2032, Until Fri12/18/20 at 2237, Anxiety, DO NOT SPLIT, CRUSH OR OPEN, Routine Given 12/18/2020 10:37 PM EST 0.5 mg lamoTRIgine (LaMICtal) tablet 100 mg 100 mg, Oral, DAILY, First dose on 12/17/20 at 0900, Until Discontinued, Routine Given 12/19/2020 8:[address] 100 mg Given 12/18/2020 8:38 AM EST 100 mg Given 2020 9:39 AM EST 100 mg lisinopriL (Prinivil;Zestril) tablet 2.5 mg 2.5 mg, Oral, DAILY, First dose on 12/17/20 at 0900, Until Discontinued, Routine Given 12/19/2020 8:33 AM EST 2.5 mg Given 12/18/2020 8:33 AM EST 2.5 mg Given 2020 8:20 AM EST 2.5 mg metoprolol succinate XL (Toprol-XL) tablet 50 mg 50 mg, Oral, 2 TIMES DAILY, First dose on 12/17/20 at 2100, Until Discontinued, DO NOT CRUSH OR OPEN, Routine Given 12/19/2020 8:33 AM EST 50 mg Given 12/18/2020 8:23 PM EST 50 mg Given 12/18/2020 8:32 AM EST 50 mg metoprolol tartrate (Lopressor) tablet 50 mg 50 mg, Oral, EVERY 12 HOURS SCHEDULED, First dose on 12/17/20 at 0900, Until Discontinued, Hold for SBP less than 90 mmHG or HR less than 60 beats per minute, Routine Given 2020 8:21 AM EST 50 mg potassium chloride ER (K-Dur/Klor-Con) tablet 40 mEq 40 mEq, Oral, ONCE, 1 dose, On 12/17/20 at 0745, Routine Given 2020 8:21 AM EST 40 mEq sodium chloride 0.9 % (flush) flush 5 mL 5 mL, Intravenous, 2 TIMES DAILY, First dose on 12/17/20 at 0900, Until Discontinued, Routine Given 12/19/2020 8:35 AM EST 5 mLs Given 12/18/2020 8:23 PM EST 5 mLs Given 12/18/2020 8:39 AM EST 5 mLs sodium chloride 0.9 % (flush) flush 5 mL 5 mL, Intravenous, 2 TIMES DAILY, First dose on 12/17/20 at 0900, Until Discontinued, Routine Given 12/19/2020 8:35 AM EST 5 mLs Given 12/18/2020 8:39 AM EST 5 mLs Given 2020 8:52 PM EST 5 mLs documented in this encounter Active and Recently Administered Medications Times are shown in EST. Scheduled Medication Order 2020 12/18/2020 12/19/2020 AMIOdarone (Cordarone; Pacerone) tablet 400 mg 400 mg, Oral, 3 TIMES DAILY, First dose on 12/17/20 at 2300, Until Discontinued, Routine 3463 (Given - Provider: Maggie Wolf RN) 0832 (Given - Provider: Mavis Gamboa RN)143 (Given - Provider: Mavis Gamboa RN)2022 (Given - Provider: Maggie Wolf RN) 0833 (Given - Provider: Mavis Gamboa RN) apixaban (Eliquis) tablet 5 mg 5 mg, Oral, 2 TIMES DAILY, First dose on 12/17/20 at 0900, Until Discontinued, Anticoagulant, Routine, Restricted anticoagulant, choose the most appropriate response: Approved indication of non-valvular atrial fibrillation 820 (Given - Provider: Fernandez Richardson RN)2035 (Given - Provider: Maggie Wolf, RN) 0832 (Given - Provider: Mavis Gamboa RN)2022 (Given - Provider: Maggie Wolf RN) 0834 (Given - Provider: Mavis Gamboa RN) aspirin EC tablet 81 mg 81 mg, Oral, DAILY, First dose on 12/17/20 at 0900, Until Discontinued, Routine 0820 (Given - Provider: Fernandez Richardson RN) 0832 (Given - Provider: Mavis Gamboa RN) 0833 (Given - Provider: Mavis Gamboa RN) atorvastatin (Lipitor) tablet 80 mg 80 mg, Oral, EVERY EVENING, First dose on 12/17/20 at 1700, Until Discontinued, Routine 1704 (Given - Provider: Fernandez Richardson RN) 1612 (Given - Provider: Mavis Gamboa RN) lamoTRIgine (LaMICtal) tablet 100 mg 100 mg, Oral, DAILY, First dose on 12/17/20 at 0900, Until Discontinued, Routine 0939 (Given - Provider: Fernandez Richardson RN) 0838 (Given - Provider: Mavis Gamboa RN) 0834 (Given - Provider: Mavis Gamboa RN) lisinopriL (Prinivil;Zestril) tablet 2.5 mg 2.5 mg, Oral, DAILY, First dose on 12/17/20 at 0900, Until Discontinued, Routine 0820 (Given - Provider: Fernandez Richardson RN) 0833 (Given - Provider: Mavis Gamboa RN) 0833 (Given - Provider: Mavis Gamboa RN) metoprolol succinate XL (Toprol-XL) tablet 50 mg 50 mg, Oral, 2 TIMES DAILY, First dose on 12/17/20 at 2100, Until Discontinued, DO NOT CRUSH OR OPEN, Routine 2035 (Given - Provider: Maggie Wolf RN) 0832 (Given - Provider: Mavis Gamboa RN)2022 (Given - Provider: Maggie Wolf RN) 0833 (Given - Provider: Mavis Gamboa RN) metoprolol tartrate (Lopressor) tablet 50 mg (CANCELED) 50 mg, Oral, EVERY 12 HOURS SCHEDULED, First dose on 12/17/20 at 0900, Until Discontinued, Hold for SBP less than 90 mmHG or HR less than 60 beats per minute, Routine 0821 (Given - Provider: Fernandez Richardson RN) potassium chloride ER (K-Dur/Klor-Con) tablet 40 mEq (COMPLETED) 40 mEq, Oral, ONCE, 1 dose, On 12/17/20 at 0745, Routine 0821 (Given - Provider: Fernandez Richardson RN) sodium chloride 0.9 % (flush) flush 5 mL 5 mL, Intravenous, 2 TIMES DAILY, First dose on 12/17/20 at 0900, Until Discontinued, Routine 0900 (Not Given - Provider: Fernandez Richardson RN - Reason: See comment - Comment: Dupe order)2099 (Not Given - Provider: Maggie Wolf RN - Reason: Contraindicated) 0839 (Given - Provider: Mavis Gamboa RN)2022 (Given - Provider: Maggie Wolf RN) 0835 (Given - Provider: Mavis Gamboa RN) sodium chloride 0.9 % (flush) flush 5 mL 5 mL, Intravenous, 2 TIMES DAILY, First dose on 12/17/20 at 0900, Until Discontinued, Routine 0900 (Not Given - Provider: Fernandez Richardson RN - Reason: See comment - Comment: infusing)2051 (Given - Provider: Maggie Wolf RN) 0839 (Given - Provider: Mavis Gamboa RN)2100 (Not Given - Provider: Maggie Wolf, FLAVIA - Reason: Loss of access) 0835 (Given - Provider: Mavis Gamboa RN) Continuous Medication Order 2020 12/18/2020 12/19/2020 AMIOdarone (Cordarone) (1.8 mg/mL) in dextrose 5% 200 mL infusion (CANCELED) 0.5-1 mg/min (16.6667-33.3333 mL/hr, rounded to 16.7-33.3 mL/hr), Intravenous, CONTINUOUS, Starting on Fri12/17/20 at 0300, Until Fri12/18/20 at 1437, Slow Load. Initiate loading infusion (slow): 1 mg/minute over 6 hours, then decrease to maintenance infusion: 0.5 mg/minute over 18 hours. At 24 hours from start time, call MD regarding infusion or change to oral dosing. 0235 (New Bag - Provider: Ismael Vallejo RN - Comment: Started at [facility] on 12/16 at 2300.)0515 (New Bag - Provider: Ismael Vallejo RN)1514 (New Bag - Provider: Fernandez Richardson RN)2307 (Stopped - Provider: Maggie Wolf RN) PRN Medication Order 2020 12/18/2020 12/19/2020 acetaminophen (Tylenol) tablet 650 mg 650 mg, Oral, EVERY 4 HOURS PRN, Starting on Fri12/17/20 at 0213, Until Fri12/19/20 at 1547, Pain, Headaches, Maximum dose of acetaminophen is 4000 mg from all sources in 24 hours. When ordered for pain, acetaminophen should be given even when other ordered pain medications are indicated. , Routine clonazePAM (KlonoPIN) tablet 1 mg (COMPLETED) 1 mg, Oral, ONCE PRN, 1 dose, Starting on Fri12/18/20 at 2032, Until Fri12/18/20 at 2237, Anxiety, DO NOT SPLIT, CRUSH OR OPEN, Routine 2237 (Given - Provider: Maggie Wolf, FLAVIA) lidocaine (Xylocaine) 1% (10 mg/mL) injection 3 mg 3 mg (0.3 mL), Subcutaneous, ONCE PRN, 1 dose, Starting on Fri12/17/20 at 0213, Until Fri12/19/20 at 1547, for discomfort with PIV insertion, Routine nitroGLYcerin (Nitrostat) disintegrating tablet 0.4 mg 0.4 mg, Sublingual, EVERY 5 MIN PRN, Starting on Fri12/17/20 at 0213, Until Fri12/19/20 at 1547, Chest pain, May repeat every 5 minutes [...] Intravenous, EVERY 1 MIN PRN, Starting on 12/17/20 at 0213, Until Tu12/19/20 at 1547, flush, Flush pertains to all indwelling lines. Flush per protocol found in the job aid using the link provided on this medication record., Routine sodium chloride 0.9 % (flush) flush 5-20 mL 5-20 mL, Intravenous, EVERY 1 MIN PRN, Starting on 12/17/20 at 0213, Until Fri12/19/20 at 1547, flush, Flush pertains to all indwelling lines. Flush per protocol found in the job aid using the link provided on this medication record., Routine documented in this encounter Care Teams Physician Relationship Specialty Start Date End Date Bin Bowman MD [address] [address] PCP - General General Internal Medicine 04/21/1707/11 documented as of this encounter
--- OUTSIDE RECORDS SUMMARY | 2024-06-04 20:46 | XMS_ITS | Encounter Summary ---
[place] [address] Care Team Providers Care Head Sampler Name Role Phone Bin Bowman MD Primary Care Provider Encounter Details Date Type Department Care Team (Late Contact Info) Description 12/21/2020 Telephone [place] [address] Teetee Hugo Social History Tobacco Use Types Packs/Day Years [...] encounter Miscellaneous Notes * Telephone Encounter - Teetee Hugo - 12/21/2020 9:12 AM ESTSummary: EP Procedure Life Sciences Director Checklist - 01/16 EP Procedure Life Sciences Director Patient Coordination Checklist DATE CALLED: CASTILLO HAS SENT [email or web address] MESSAGE TO PATIENT WHO AGREED TO DATE/TIME DATE OF PROCEDURE: 01/16 0630/0730 PERFORMING MD MEREDITH PROCEDURE TYPE: SVT ABLATION COMPANY: [employer] ANESTHESIA TYPE: GA IMAGING NEEDED: N/A DATES OF SCHEDULED IMAGING: N/A ORDERS: Y ANTICOAG TYPE: ELIQUIS MANAGED BY (IF ON WARFARIN): N/A FACILITY NAME - N/A MD - N/A CONTACT INFO - N/A DATE OF INR PRIOR TO PROCEDURE: N/A documented in this encounter Plan of Treatment Upcoming Encounters Date Type Department Care Team (Latest Contact Info) Description 06/07/2024 2:00 PM EDT Office [place] [phone] Joan Castro MD [facility] [place] [address] 06/11/2024 1:03 PM EDT Hospital Encounter Main Operating Room [place] [phone] Rachel Carrasco MD [facility] [place] [address] 06/11/2024 1:03 PM EDT - 06/11/2024 1:58 PM EDT Surgery [place] [phone] Rachel Carrasco MD [facility] [place] [address] CYSTO, REMOVAL OF STENT, FOREIGN BODY OR CALCULUS, SIMPLE (WRVU 2.81) 06/23/2024 10:00 AM EDT Office Visit Cardiology at [address] [place] [id number] Mo Horne MD [facility] [place] [address] Scheduled Procedures Name Priority Associated Diagnoses Date/Ti me CYSTO, REMOVAL OF STENT, FOR EIGN BODY OR CALCULUS, SIMPLE (WRVU 2.81) NEPHROLITHIASIS 06/11/2024 1:03 PM EDT documented as of this encounter Visit Diagnoses Not on filedocumented in this encounter Care Teams Head Sampler Relationship Specialty Start Date End Date Bin Bowman MD [address] [place] [id number] PCP - General General Internal Medicine 04/21/1707/11 documented as of this encounter
--- OUTSIDE RECORDS SUMMARY | 2024-06-04 20:46 | XMS_ITS | Encounter Summary ---
Author Organization [facility] [place] [address] Care Team Providers Care Recruiting And Selection Consultant Name Role Phone Bin Bowman MD Primary Care Provider Reason for Visit * Reason Onset Date Comments Pre Procedure Call 01/02/2021 Encounter Details Date Type Department Care Team (Late st Contact Info) Description 01/02/2021 Telephone Cardiology at [address] [phone] Lennie Garcia RN Pre Procedure Call Social History Tobacco Use Types [...] Telephone Encounter - Lennie Garcia RN - 01/02/2021 1:34 PM ESTSummary: Pre Procedure Call: SVT ablation MAGALY HOLLOW WARE MAKER COORDINATION CHECKLIST Patient Name: Rolo Aguilar Patient Initials: PS Date Scheduled: 01/16/21 Arrival Time/ Case Time: 6:30 am / 7:30 am Date Patient was Called: 01/02/21 Procedure: AT/AF ablation Orders: Yes Anesthesia: GA Med Instructions: BB/CCB - hold metoprolol AM of procedure AAD - discontinue amiodarone beginning 01/03/21 Anticoag Type: Eliquis (apixaban) Anticoag Instructions: hold Eliquis PM before & AM of procedure Imaging: SEN Date Scheduled for Imagin01/16/21 COVID TEST?: YES Contrast Allergy: No DM: No Coming from an assisted living facility?: No Any recent S/S of infection (fevers, on oral ABX)?: No Other Instructions: NPO after midnight on day of procedure, AM medications w/ small sips of water, Same Day will call 01/15/21. 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 documented in this encounter Plan of Treatment Upcoming Encounters Date Type Department Care Team (Latest Contact Info) Description 06/07/2024 2:00 PM EDT Office Visit Gastroenterology at [place] [phone] Joan Castro MD [facility] [place] [address] 06/11/2024 1:03 PM EDT Hospital Encounter Main Operating Room [place] [phone] Rachel Carrasco MD [facility] [place] [address] 06/11/2024 1:03 PM EDT - 06/11/2024 1:58 PM EDT Surgery Main Operating Room [place] [phone] Rachel Carrasco MD [facility] [place] [address] CYSTO, REMOVAL OF STENT, FOREIGN BODY OR CALCULUS, SIMPLE (WRVU 2.81) 06/23/2024 10:00 AM EDT Office Visit Cardiology at [address] [place] [address] Mo Horne MD [facility] [place] [address] Scheduled Procedures Name Priority Associated Diagnoses Date/Ti me CYSTO, REMOVAL OF STENT, FOR EIGN BODY OR CALCULUS, SIMPLE (WRVU 2.81) NEPHROLITHIASIS 06/11/2024 1:03 PM EDT documented as of this encounter Visit Diagnoses Not on filedocumented in this encounter Care Teams Recruiting And Selection Consultant Relationship Specialty Start Date End Date Bin Bowman MD [address] [place] [address] PCP - General General Internal Medicine 04/21/1707/11 documented as of this encounter
--- OUTSIDE RECORDS SUMMARY | 2024-06-04 20:46 | XMS_ITS | Encounter Summary ---
Author Organization [facility] Address [facility] [place] [address] Care Team Providers Care Welding Setter Name Role Phone Bin Bowman MD Primary Care Provider [phone] Reason for Visit * Reason Onset Date Comments Medication Refill 11/07/2020 Metoprolol Encounter Details Date Type Department Care Team (Late st Contact Info) Description 11/07/2020 Refill Cardiology at [address] [phone] Mary Daley, SONNY [facility] [place] [address] Medication Refill (Metoprolol) Social History Tobacco Use Types Packs/Day Years [...] 2:00 PM EDT Office Visit [place] [phone] Joan Castro MD [facility] GASTROENTEROLOGY [place], [place] [phone] 06/11/2024 1:03 PM EDT Hospital Encounter Main [place] [phone] Rachel Carrasco MD [facility] [place] [address] 06/11/2024 1:03 PM EDT - 06/11/2024 1:58 PM EDT Surgery Main [place] [phone] Rachel Carrasco MD [facility] [place] [address] CYSTO, REMOVAL OF STENT, FOREIGN BODY OR CALCULUS, SIMPLE (WRVU 2.81) 06/23/2024 10:00 AM EDT Office Visit Cardiology at [address] [place] [address] Mo Horne MD [facility] [place] [address] Scheduled Procedures Name Priority Associated Diagnoses Date/Ti me CYSTO, REMOVAL OF STENT, FOR EIGN BODY OR CALCULUS, SIMPLE (WRVU 2.81) NEPHROLITHIASIS 06/11/2024 1:03 PM EDT documented as of this encounter Visit Diagnoses Diagnosis Coronary disease Essential hypertension Unspecified essential hypertension Heart palpitations Palpitations documented in this encounter Care Teams Welding Setter Relationship Specialty Start Date End Date Bin Bwoman MD [address] [place] [address] PCP - General General Internal Medicine 04/21/1707/11 documented as of this encounter
--- OUTSIDE RECORDS SUMMARY | 2024-06-04 20:46 | XMS_ITS | Encounter Summary ---
[place] [address] Care Team Providers Care Movie Shot Camera Operator Name Role Phone Bin Bowman MD Primary Care Provider Encounter Details Date Type Department Care Team (Late st Contact Info) Description 12/19/2020 Telephone Cardiology at [address] [phone] Ivonne Nicole, RN Social History Tobacco Use [...] Telephone Encounter - Ivonne Nicole, RN - 12/19/2020 3:21 PM EST TC from [facility] pharmacy to clarify Amiodarone prescription for 400mg, sent to pharmacy today. Confirmed new dosing schedule with pharmacist, even though patient has just picked up Amiodarone 200mg tablet prescription 4 days ago. documented in this encounter Plan of Treatment Upcoming Encounters Date Type Department Care Team (Latest Contact Info) Description 06/07/2024 2:00 PM EDT Office [place] [address] Joan Castro MD [facility] [place] [address] 06/11/2024 1:03 PM EDT Hospital Encounter Main Operating Room [address] Rachel Carrasco MD [facility] [place] [address] 06/11/2024 1:03 PM EDT - 06/11/2024 1:58 PM EDT Surgery Main Operating Room [place] [address] Rachel Carrasco MD [facility] [place] [address] CYSTO, REMOVAL OF STENT, FOREIGN BODY OR CALCULUS, SIMPLE (WRVU 2.81) 06/23/2024 10:00 AM EDT Office Visit Cardiology at [address] [address] Mo Horne MD [facility] [place] [address] Scheduled Procedures Name Priority Associated Diagnoses Date/Ti me CYSTO, REMOVAL OF STENT, FOR EIGN BODY OR CALCULUS, SIMPLE (WRVU 2.81) NEPHROLITHIASIS 06/11/2024 1:03 PM EDT documented as of this encounter Visit Diagnoses Not on filedocumented in this encounter Care Teams Movie Shot Camera Operator Relationship Specialty Start Date End Date Bin Bowman MD [address] [place] [address] PCP - General General Internal Medicine 04/21/1707/11 documented as of this encounter
--- OUTSIDE RECORDS SUMMARY | 2024-06-04 20:46 | XMS_ITS | Encounter Summary ---
Author Organization [facility] [address] Care Team Providers Care Plasterer Tender Name Role Phone Bin Bowman MD Primary Care Provider Encounter Details Date Type Department Care Team (Late st Contact Info) Description 12/15/2020 Ancillary Procedure [place] [phone] Bin Bowman MD [address] [place], [place] [phone] Social History Tobacco Use Types Packs/Day Years [...] 2:00 PM EDT Office [place] [phone] Joan Castro MD [facility] DR GASTROENTEROLOGY [place], [place] [phone] 06/11/2024 1:03 PM EDT Hospital Encounter [place] [address] Rachel Carrasco MD [facility] [place] [address] 06/11/2024 1:03 PM EDT - 06/11/2024 1:58 PM EDT Surgery [place] [phone] Rachel Carrasco MD [facility] [place] [address] CYSTO, REMOVAL OF STENT, FOREIGN BODY OR CALCULUS, SIMPLE (WRVU 2.81) 06/23/2024 10:00 AM EDT Office Visit Cardiology at [address] [place] [address] Mo Horne MD [facility] [place] [address] Scheduled Procedures Name Priority Associated Diagnoses Date/Ti me CYSTO, REMOVAL OF STENT, FOR EIGN BODY OR CALCULUS, SIMPLE (WRVU 2.81) NEPHROLITHIASIS 06/11/2024 1:03 PM EDT documented as of this encounter Procedures Procedure Name Priority Date/Time Associated Diagnosis Comments FILM LIBRARY STORAGE ONLY DX CHEST Routine 12/15/2020 12:00 AM EST documented in this encounter Results * Film Library- Storage Only DX Chest (12/15/2020 12:00 AM EST) Narrative SAIDA LAGUNA - 12/16/2020 11:42 PM EST This exam is auto-finalizing. It's purpose is for storage only. Bin Bowman MD IMG FILM LIBRARY ORD ERABLES [place], [place] documented in this encounter Visit Diagnoses Not on filedocumented in this encounter Care Teams Plasterer Tender Relationship Specialty Start Date End Date Bin Bowman MD [address] [place] [address] PCP - General General Internal Medicine 04/21/1707/11 documented as of this encounter
--- OUTSIDE RECORDS SUMMARY | 2024-06-04 20:46 | XMS_ITS | Encounter Summary ---
Author Organization [facility] [place] [address] Care Team Providers Care Manager Unit Name Role Phone Bin Bowman MD Primary Care Provider Encounter Details Date Type Department Care Team (Late st Contact Info) Description 12/15/2020 External Results [place] [address] Social History Tobacco Use Types [...] 2:00 PM EDT Office Visit [place] [phone] Joan Castro MD [facility] [place] [address] 06/11/2024 1:03 PM EDT Hospital Encounter [place] [address] Rachel Carrasco MD [facility] [place] [address] 06/11/2024 1:03 PM EDT - 06/11/2024 1:58 PM EDT Surgery Main Operating Room [facility] [place] [address] Rachel Carrasco MD [facility] [place] [address] CYSTO, REMOVAL OF STENT, FOREIGN BODY OR CALCULUS, SIMPLE (WRVU 2.81) 06/23/2024 10:00 AM EDT Office Visit Cardiology at [address] [place] [address] Mo Horne MD [facility] [place] [address] Scheduled Procedures Name Priority Associated Diagnoses Date/Ti me CYSTO, REMOVAL OF STENT, FOR EIGN BODY OR CALCULUS, SIMPLE (WRVU 2.81) NEPHROLITHIASIS 06/11/2024 1:03 PM EDT documented as of this encounter Procedures Procedure Name Priority Date/Time Associated Diagnosis Comments ECG SCAN Routine 12/15/2020 documented in this encounter Results * Scan Doc: ECG (12/15/2020) Historical Provider MEDIA MGR SCAN EX T ORDR/RSLT documented in this encounter Visit Diagnoses Not on filedocumented in this encounter Care Teams Manager Unit Relationship Specialty Start Date End Date Bin Bowman MD [address] [place] [address] PCP - General General Internal Medicine 04/21/1707/11 documented as of this encounter
--- OUTSIDE RECORDS SUMMARY | 2024-06-04 20:46 | XMS_ITS | Encounter Summary ---
Author Organization [facility] [place] [address] Care Team Providers Care Cognos Administrator Name Role Phone Bin Bowman MD Primary Care Provider [phone] Encounter Details Date Type Department Care Team (Late st Contact Info) Description 07/11/2020 Telephone Cardiology at [address] [phone] Fady Lord RN Social History Tobacco Use Types Packs/Day [...] encounter Miscellaneous Notes * Telephone Encounter - Fady Lord RN - 07/11/2020 1:44 PM EDT Received a TC from pt with questions re: metoprolol. Per telephone note on 06/13/20 pt stated was taking Metoprolol 125mg daily. Pt then stated while inpatient that he was taking metoprolol 200mg twice daily. Autumn reports that he was taking metoprolol 125mg twice daily. This information wasdiscussed with SONNY Herman who stated to keep metoprolol 125mg BID. Information was confirmed with Dr. Palomo Lyman' nurse at [facility] Cardiology. Pt medication list updated. documented in this encounter Plan of Treatment Upcoming Encounters Date Type Department Care Team (Latest Contact Info) Description 06/07/2024 2:00 PM EDT Office Visit [place] [phone] Joan Castro MD [facility] [place] [address] 06/11/2024 1:03 PM EDT Hospital Encounter [place] [phone] Rachel Carrasco MD [facility] [place] [address] 06/11/2024 1:03 PM EDT - 06/11/2024 1:58 PM EDT Surgery [place] [phone] Rachel Carrasco MD [facility] [place] [address] CYSTO, REMOVAL OF STENT, FOREIGN BODY OR CALCULUS, SIMPLE (WRVU 2.81) 06/23/2024 10:00 AM EDT Office Visit Cardiology at [address] [place] [phone] Mo Horne MD [facility] [place] [address] Scheduled Procedures Name Priority Associated Diagnoses Date/Ti me CYSTO, REMOVAL OF STENT, FOR EIGN BODY OR CALCULUS, SIMPLE (WRVU 2.81) NEPHROLITHIASIS 06/11/2024 1:03 PM EDT documented as of this encounter Visit Diagnoses Not on filedocumented in this encounter Care Teams Cognos Administrator Relationship Specialty Start Date End Date Bin Bowman MD [address] [place] [address] PCP - General General Internal Medicine 04/21/1707/11 documented as of this encounter
--- OUTSIDE RECORDS SUMMARY | 2024-06-04 20:46 | XMS_ITS | Encounter Summary ---
Author Organization [facility] Address [facility] [place] [address] Care Team Providers Care Clinical Nursing Professor Name Role Phone Bin Bowman MD Primary Care Provider [phone] Encounter Details Date Type Department Care Team (Late st Contact Info) Description 01/02/2021 Orders Only Cardiology at [address] [phone] Fadi Escobar MD [facility] [place] [address] Flutter-fibrillation Social History Tobacco Use Types Packs/Day Years [...] 2:00 PM EDT Office Visit [place] [address] Joan Castro MD [facility] [place] [address] 06/11/2024 1:03 PM EDT Hospital Encounter [place] [address] Rachel Carrasco MD [facility] [place] [address] 06/11/2024 1:03 PM EDT - 06/11/2024 1:58 PM EDT Surgery [place] [phone] Rachel Carrasco MD [facility] [place] [address] CYSTO, REMOVAL OF STENT, FOREIGN BODY OR CALCULUS, SIMPLE (WRVU 2.81) 06/23/2024 10:00 AM EDT Office Visit Cardiology at [address] [address] Mo Horne MD [facility] [address] Scheduled Procedures Name Priority Associated Diagnoses Date/Ti me CYSTO, REMOVAL OF STENT, FOR EIGN BODY OR CALCULUS, SIMPLE (WRVU 2.81) NEPHROLITHIASIS 06/11/2024 1:03 PM EDT documented as of this encounter Procedures Procedure Name Priority Date/Time Associated Diagnosis Comments ECHOCARDIOGRAM TRANSTHORACIC Routine 01/11/2021 documented in this encounter Results * Echo Transthoracic (Complete) (01/11/2021) Anatomical Region Laterality Modality Other 01/11/2021 Narrative 01/11/2021 8:39 AM EST Amended Report Procedure: ?Transthoracic Echocardiogram Patient: ?Jeff Seth ?(Age): 1970(50y) Med Rec#: ? [id number] ?Sex: ? Site Loc: ? Ht / Wt: ??(cm)/ (kg) ? Pt. Loc: ? Study Date: ?? 01/11/2021 ?Pt. Type: Tape: ? Reading: Khurram Barillas ([id number]) Crystal Finisher: [employer] Airline Station Agent: Chintan Gallegos ([id number]) Interpreting Fellow: Chintan Gallegos ([id number]) Diagnosis: SUMMARY: 1. Limited on-call echocardiogram performed . 2. There is a moderate circumferential pericardial effusion (most prominent adjacent to the RV). The effusion appears hemodynamically significant by echo criteria (ventricular septal shift with respiration, variation in mitral E velocities, diastolic collapse of the right atrium, and restriction to RV diastolic expansion, and IVC plethora). Clinical correlation required. ?? 3. There is normal global left ventricular systolic function that is visually estimated to be 65%. 4. Compared to the prior echocardiogram from 07/15/2017, the pericardial effusion (with associated hemodynamic effects) is new. Findings ? : Left Ventricle: ? There is normal global left ventricular systolic function.Visually estimated to be 65%. Right Ventricle: ? Right ventricular global systolic function is normal. Pericardium: ? There is a moderate circumferential pericardial effusion. ?Right atrial collapse is present. This report has been electronically signed by: Khurram Barillas MD ? 01/11/2021 10:02:13 Images reviewed and interpretation verified [facility] Cardiac Ultrasound Laboratory Procedure Note Khurram Barillas MD - 01/11/2021 Amended Report Procedure: Transthoracic Echocardiogram Patient: Jeff MOTT(Age): 1970(50y) [facility] Rec#: [id number] Sex: Site Loc: Ht / Wt: (cm)/ (kg) Pt. Loc: Study Date: 01/11/2021 Pt. Type: Tape: Reading: Khurram Barillas ([id number]) Crystal Finisher: [employer] Airline Station Agent: Chintan Gallegos ([id number]) Interpreting Fellow: Chintan Gallegos ([id number]) Diagnosis: SUMMARY: 1. Limited on-call echocardiogram performed . 2. There is a moderate circumferential pericardial effusion (most prominent adjacent to the RV). The effusion appears hemodynamically significant by echo criteria (ventricular septal shift with respiration, variation in mitral E velocities, diastolic collapse of the right atrium, and restriction to RV diastolic expansion, and IVC plethora). Clinical correlation required. 3. There is normal global left ventricular systolic function that is visually estimated to be 65%. 4. Compared to the prior echocardiogram from 07/15/2017, the pericardial effusion (with associated hemodynamic effects) is new. Findings : Left Ventricle: There is normal global left ventricular systolic function.Visually estimated to be 65%. Right Ventricle: Right ventricular global systolic function is normal. Pericardium: There is a moderate circumferential pericardial effusion. Right atrial collapse is present. This report has been electronically signed by: Khurram Barillas MD 01/11/2021 10:02:13 Images reviewed and interpretation verified [facility] Cardiac Ultrasound Laboratory Unknown ECHO ORDERABLES documented in this encounter Visit Diagnoses Diagnosis Flutter-fibrillation Other premature beats documented in this encounter Care Teams Clinical Nursing Professor Relationship Specialty Start Date End Date Bin Bowman MD [address] [address] PCP - General General Internal Medicine 04/21/1707/11 documented as of this encounter
--- OUTSIDE RECORDS SUMMARY | 2024-06-04 20:46 | XMS_ITS | Encounter Summary ---
Author Organization [facility] Address [facility] [place] [address] Care Team Providers Care Fish And Wildlife Technician Name Role Phone Bin Bowman MD Primary Care Provider Encounter Details Date Type Department Care Team (Late st Contact Info) Description 12/06/2020 Orders Only Cardiology at [address] [phone] Fadi Escobar MD [facility] [place] [address] SVT (supraventricular tachycardia) Social History Tobacco Use [...] 2:00 PM EDT Office [place] [address] Joan Castro MD [facility] [place] [address] 06/11/2024 1:03 PM EDT Hospital Encounter Main [place] [address] Rachel Carrasco MD [facility] [place] [address] 06/11/2024 1:03 PM EDT - 06/11/2024 1:58 PM EDT Surgery Main [place] [address] Rachel Carrasco MD [facility] [place] [address] CYSTO, REMOVAL OF STENT, FOREIGN BODY OR CALCULUS, SIMPLE (WRVU 2.81) 06/23/2024 10:00 AM EDT Office Visit Cardiology at [address] [place] [address] Mo Horne MD [facility] [place] [address] Scheduled Procedures Name Priority Associated Diagnoses Date/Ti me CYSTO, REMOVAL OF STENT, FOR EIGN BODY OR CALCULUS, SIMPLE (WRVU 2.81) NEPHROLITHIASIS 06/11/2024 1:03 PM EDT documented as of this encounter Visit Diagnoses Diagnosis SVT (supraventricular tachycardia) Other specified cardiac dysrhythmias documented in this encounter Care Teams Fish And Wildlife Technician Relationship Specialty Start Date End Date Bin Bowman MD [address] [place] [address] PCP - General General Internal Medicine 04/21/1707/11 documented as of this encounter
--- OUTSIDE RECORDS SUMMARY | 2024-06-04 20:46 | XMS_ITS | Encounter Summary ---
Author Organization [facility] [place] [address] Care Team Providers Care Glass Cut Off Tender Name Role Phone Bin Bowman MD Primary Care Provider [phone] Encounter Details Date Type Department Care Team (Late st Contact Info) Description 12/21/2020 [place] [phone] Cynthia Wild Social History Tobacco Use Types Packs/Day Years [...] encounter Miscellaneous Notes * Telephone Encounter - Cynthia Wild - 12/21/2020 12:56 PM EST Telephone call placed/received to schedule covid 19 testing with patient. Ordering provider: Dr. Escobar Testing Facility: [facility] Date of Testin/6 Time of Testing: TBD Symptoms: No Is this the first test for Covid 19 No, Dec, Neg, [facility] If no, please list date of previous test, result, and type of test (Molecular, Antigen, Antibody orunknown): Resides in congregate care setting No Employee or Household Member of Employee No Healthcare Worker No documented in this encounter Plan of Treatment Upcoming Encounters Date Type Department Care Team (Latest Contact Info) Description 06/07/2024 2:00 PM EDT Office [place] [phone] Joan Castro MD [facility] [place] [address] 06/11/2024 1:03 PM EDT Hospital Encounter [place] [phone] Rachel Carrasco MD [facility] [place] [address] 06/11/2024 1:03 PM EDT - 06/11/2024 1:58 PM EDT Surgery [place] [phone] Rachel Carrasco MD [facility] [place] [address] CYSTO, REMOVAL OF STENT, FOREIGN BODY OR CALCULUS, SIMPLE (WRVU 2.81) 06/23/2024 10:00 AM EDT Office Visit Cardiology at [address] [place] [phone] Mo Horne MD [facility] [address] Scheduled Procedures Name Priority Associated Diagnoses Date/Ti me CYSTO, REMOVAL OF STENT, FOR EIGN BODY OR CALCULUS, SIMPLE (WRVU 2.81) NEPHROLITHIASIS 06/11/2024 1:03 PM EDT documented as of this encounter Visit Diagnoses Diagnosis COVID-19 ruled out documented in this encounter Care Teams Glass Cut Off Tender Relationship Specialty Start Date End Date Bin Bowman MD [address] [place] [address] PCP - General General Internal Medicine 04/21/1707/11 documented as of this encounter
--- OUTSIDE RECORDS SUMMARY | 2024-06-04 20:46 | XMS_ITS | Encounter Summary ---
Author Organization [facility] [place] [address] Care Team Providers Care Plant Pathology Teacher Name Role Phone Bin Bowman MD Primary Care Provider Reason for Visit * Reason Onset Date Comments Questions 10/30/2020 Medication adjus tment Encounter Details Date Type Department Care Team (Late st Contact Info) Description 10/30/2020 Telephone Cardiology at [address] [phone] Ivonne Nicole, RN Questions (Medication adjustment) Social History Tobacco Use Types Packs/Day Years [...] Telephone Encounter - Ivonne Nicole, RN - 11/02/2020 12:07 PM EST RTC to Mrs Aguilar, after leaving a for Mr Aguilar, to convey Dr Terrell's advice to increase Mr Aguilar's Metoprolol XL from 50mg Bid, to 100mg BID. Also, advised per Dr Terrell that if Mr Aguilar has dizziness, lightheadedness that does not resolve over hours, that he report to the ED to be evaluated. Mrs Aguilar, states metoprolol increase, and verbalizes understanding, by teach back method, and as Mr Aguilar's emergency contact will convey Dr Terrell's advise to him, and states he will beginMetoprolol 100mg, BID with 1st dose tonight. * Telephone Encounter - Ivonne Nicole RN - 11/02/2020 9:32 AM EST RTC to Mr Aguilar following up regarding phone call from Mrs Aguilar on 10/30, regarding complaint of palpitations. Mr Aguilar states he has fluttering, or palpitations, even while watching TV, and can experience dizziness, at time. Confirmed with him that he is taking Metoprolol XL 50mg, BID, decreased from 125mg, BID on OV with Dr Escobar, on 10/07/2020. Ablation procedure on 07/10/2020, and he states he was doing great post ablation until recently, andis questioning if this is because of the decreased Metoprolol. Forwarding to physician on consult. * Telephone Encounter - Ivonne Nicole RN - 10/30/2020 12:44 PM EST RTC to Mr Aguilar regarding her message stating Mr Aguilar had palpitations last night, and said he became dizzy when he stood up. She states he does not monitor his HR, and B/P. Dr Escobar did reduce Mr Aguilar's dosing of Metoprolol from 125mg, BID to 50Mg BID, at his office visit on 10/07/2020. This was done post ablation procedure on 07/10/2020. The Jeff's wanted to call to ask if he needs medication adjustment, or to make an appointment to see Dr Escobar. Forwarding to provider. The patient indicates understanding of these issues and agrees with the plan. documented in this encounter Plan of Treatment Upcoming Encounters Date Type Department Care Team (Latest Contact Info) Description 06/07/2024 2:00 PM EDT Office [place] [address] Joan Castro MD [facility] [place] [address] 06/11/2024 1:03 PM EDT Hospital Encounter Main Operating Room [place] [phone] Rachel Carrasco MD [facility] [place] [address] 06/11/2024 1:03 PM EDT - 06/11/2024 1:58 PM EDT Surgery Main Operating Room [place] [address] Rachel Carrasco MD [facility] [place] [address] CYSTO, REMOVAL OF STENT, FOREIGN BODY OR CALCULUS, SIMPLE (WRVU 2.81) 06/23/2024 10:00 AM EDT Office Visit Cardiology at [address] [address] Mo Horne MD [facility] [place] [address] Scheduled Procedures Name Priority Associated Diagnoses Date/Ti vt CYSTO, REMOVAL OF STENT, FOR EIGN BODY OR CALCULUS, SIMPLE (WRVU 2.81) NEPHROLITHIASIS 06/11/2024 1:03 PM EDT documented as of this encounter Visit Diagnoses Not on filedocumented in this encounter Care Teams Plant Pathology Teacher Relationship Specialty Start Date End Date Bin Bowman MD [address] [place] [address] PCP - General General Internal Medicine 04/21/1707/11 documented as of this encounter
--- OUTSIDE RECORDS SUMMARY | 2024-06-04 20:46 | XMS_ITS | Encounter Summary ---
Author Organization [facility]ly [facility] [place] [address] Care Team Providers Care Program Therapist Name Role Phone Bin Bowman MD Primary Care Provider [phone] Encounter Details Date Type Department Care Team (Late st Contact Info) Description 12/16/2020 11:40 PM EST Ancillary Procedure [place] [phone] Bin Bowman MD [address] [place] [address] Social History Tobacco Use Types Packs/Day Years [...] 2:00 PM EDT Office [place] [phone] Jaon Castro MD [facility] [place] [address] 06/11/2024 1:03 PM EDT Hospital Encounter [place] [phone] Rachel Carrasco MD [facility] [place] [address] 06/11/2024 1:03 PM EDT - 06/11/2024 1:58 PM EDT Surgery Main Operating [facility] [place] [phone] Rachel Carrasco MD [facility] [place] [address] CYSTO, REMOVAL OF STENT, FOREIGN BODY OR CALCULUS, SIMPLE (WRVU 2.81) 06/23/2024 10:00 AM EDT Office Visit Cardiology at [address] [place] [address] Mo Horne MD [facility] [place] [address] Scheduled Procedures Name Priority Associated Diagnoses Date/Ti me CYSTO, REMOVAL OF STENT, FOR EIGN BODY OR CALCULUS, SIMPLE (WRVU 2.81) NEPHROLITHIASIS 06/11/2024 1:03 PM EDT documented as of this encounter Procedures Procedure Name Priority Date/Time Associated Diagnosis Comments FILM LIBRARY STORAGE ONLY DX CHEST Routine 12/16/2020 11:37 PM EST documented in this encounter Results * Film Library- Storage Only DX Chest (12/16/2020 11:37 PM EST) Narrative SAIDA LAGUNA - 12/16/2020 11:37 PM EST This exam is auto-finalizing. It's purpose is for storage only. Bin Bowman MD IMG FILM LIBRARY ORD ERABLES [place], [place] documented in this encounter Visit Diagnoses Not on filedocumented in this encounter Care Teams Program Therapist Relationship Specialty Start Date End Date Bin Bowman MD [address] [place] [address] PCP - General General Internal Medicine 04/21/1707/11 documented as of this encounter
--- OUTSIDE RECORDS SUMMARY | 2024-06-04 20:46 | XMS_ITS | Encounter Summary ---
Author Organization [facility]ly [facility] Address [facility] [place] [address] Care Team Providers Care Instructional Assistant Name Role Phone Bin Bowman MD Primary Care Provider Encounter Details Date Type Department Care Team (Late st Contact Info) Description 12/14/2020 Telephone Cardiology at [address] [phone] Obdulio Dominique MD [facility] [place] [address] Social History Tobacco Use Types Packs/Day Years [...] Telephone Encounter - Obdulio Dominique MD - 12/14/2020 12:09 AM EST Cardiology Triage Note 12/14/2020 History of Present Illness 49M hx h/o SVT s/p ablation (07/10/2020), paroxysmal AF (on apixaban), ASCVD (s/p NSTEMI, EMMY to OM1in 07/2017), HTN, sleep apnea, RICARDO, and obesity who presente dto In April 2020, he was evaluated in the ED for palpitations and noted to be in SVT at 164bpm. Adenosine was administered and he reverted to a faster WCT necessitating DCCV to SR. He had another occurrence of sustained, symptomatic SVT requiring emergent medical care about weeks after the first episode. 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 Tonight he developed acute dyspnea and flushed face while resting at home. He went to the ED and was found to be in AF w/ RVR with ventricular rates in the 160s. He was given diltiazem 20 mg which lowered the rates to the 90s, and then gradually increased. He was started on dilitazem gtt with gradually increased doses to now 30 mg/hr. His HR initially decreaesed to the 90s but then converted to an SVT with rates in the 160s. He spontaneously broke out of the SVT and appears to now be in AF w/ RVR rates 130s. Hemodymically stable, minimally symptomatic. 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 He has not spontaneously converted on diltiazem therapy. Inthe past, he developed wide complex tachycardia that required DCCV x3 when given adenosine. Additional rate control has not been tried nor has rhythm control. Rate control with metoprolol is an option. Rhythm control with flecainide or propafenone are options. - try metoprolol 5 mg IVP up to 3 times - if ineffective, requested to call back to discuss with EP attending if flecainide is safe to use Above recommendations are based on my conversation with the referring provider. I have not personally interviewed or examined this patient. Obdulio Dominique MD documented in this encounter Plan of Treatment Upcoming Encounters Date Type Department Care Team (Latest Contact Info) Description 06/07/2024 2:00 PM EDT Office [place] [phone] Joan Castro MD [facility] [place] [address] 06/11/2024 1:03 PM EDT Hospital Encounter [place] [phone] Rachel Carrasco MD [facility] [place] [address] 06/11/2024 1:03 PM EDT - 06/11/2024 1:58 PM EDT Surgery [place] [phone] Rachel Carrasco MD [facility] [place] [address] CYSTO, REMOVAL OF STENT, FOREIGN BODY OR CALCULUS, SIMPLE (WRVU 2.81) 06/23/2024 10:00 AM EDT Office Visit Cardiology at [address] [place] [address] Mo Horne MD [facility] [place] [address] Scheduled Procedures Name Priority Associated Diagnoses Date/Ti me CYSTO, REMOVAL OF STENT, FOR EIGN BODY OR CALCULUS, SIMPLE (WRVU 2.81) NEPHROLITHIASIS 06/11/2024 1:03 PM EDT documented as of this encounter Visit Diagnoses Not on filedocumented in this encounter Care Teams Instructional Assistant Relationship Specialty Start Date End Date Bin Bowman MD [address] [place] [address] PCP - General General Internal Medicine 04/21/1707/11 documented as of this encounter
--- OUTSIDE RECORDS SUMMARY | 2024-06-04 20:46 | XMS_ITS | Encounter Summary ---
Author Organization [facility] [place] [address] Care Team Providers Care Director Of Workforce Development Name Role Phone Bin Bowman MD Primary Care Provider [phone] Encounter Details Date Type Department Care Team (Late st Contact Info) Description 08/01/2020 Telephone Cardiology at [address] [phone] Fady Lord RN Social History Tobacco Use [...] Telephone Encounter - Fady Lord RN - 08/01/2020 4:51 PM EDT TC to pt re: Zio out of pocket cost. Pt states he was initially told that it would be $400 and now we are seeing $500. Called Alex to confirm pt total out of pocket cost. Was told if pts Medicaid [place] was active then Meghna bills directly to Medicaid, if inactive then the cost is the responsibility of the pt. This information was relayed to the pt and his . If responsible for cost pt would pay $395. This information was confirmed with Alex. Pt will be in clinictomorrow for Zio patch placement. documented in this encounter Plan of Treatment Upcoming Encounters Date Type Department Care Team (Latest Contact Info) Description 06/07/2024 2:00 PM EDT Office Visit [place] [phone] Joan Castro MD [facility] [place] [address] 06/11/2024 1:03 PM EDT Hospital Encounter [place] [phone] Rachel Carrasco MD [facility] [address] 06/11/2024 1:03 PM EDT - 06/11/2024 1:58 PM EDT Surgery [place] [phone] Rachel Carrasco MD [facility] [place] [address] CYSTO, REMOVAL OF STENT, FOREIGN BODY OR CALCULUS, SIMPLE (WRVU 2.81) 06/23/2024 10:00 AM EDT Office Visit Cardiology at [address] [place] [address] Mo Horne MD [facility] [place] [address] Scheduled Procedures Name Priority Associated Diagnoses Date/Ti me CYSTO, REMOVAL OF STENT, FOR EIGN BODY OR CALCULUS, SIMPLE (WRVU 2.81) NEPHROLITHIASIS 06/11/2024 1:03 PM EDT documented as of this encounter Visit Diagnoses Not on filedocumented in this encounter Care Teams Director Of Workforce Development Relationship Specialty Start Date End Date Bin Bowman MD [address] [place] [address] PCP - General General Internal Medicine 04/21/1707/11 documented as of this encounter
--- OUTSIDE RECORDS SUMMARY | 2024-06-04 20:46 | XMS_ITS | Encounter Summary ---
Author Organization [facility] Address [facility] [place] [address] Care Team Providers Care Panelboard Tank Pumper Name Role Phone Bin Bowman MD Primary Care Provider [phone] Encounter Details Date Type Department Care Team (Late st Contact Info) Description 12/06/2020 Orders Only Cardiology at [address] [phone] Fadi Escobar MD [facility] [place] [address] SVT (supraventricular tachycardia) Social History Tobacco Use [...] 2:00 PM EDT Office [place] [address] Joan Castro MD [facility] [place] [address] 06/11/2024 1:03 PM EDT Hospital Encounter [place] [address] Rachel Carrasco MD [facility] [place] [address] 06/11/2024 1:03 PM EDT - 06/11/2024 1:58 PM EDT Surgery [place] [address] Rachel Carrasco MD [facility] [place] [address] CYSTO, REMOVAL OF STENT, FOREIGN BODY OR CALCULUS, SIMPLE (WRVU 2.81) 06/23/2024 10:00 AM EDT Office Visit Cardiology at [address] [place] [address] Mo Horne MD [facility] [place] [address] Scheduled Orders Name Type Priority Associated Diagnoses Orde r Schedule Basic Metabolic Panel (non-fasting) Lab Routine SVT (supraventricular tachycardia) Expected: 01/16/2021 (Approximate), Expires: 12/06/2021 Scheduled Procedures Name Priority Associated Diagnoses Date/Ti me CYSTO, REMOVAL OF STENT, FOR EIGN BODY OR CALCULUS, SIMPLE (WRVU 2.81) NEPHROLITHIASIS 06/11/2024 1:03 PM EDT documented as of this encounter Visit Diagnoses Diagnosis SVT (supraventricular tachycardia) Other specified cardiac dysrhythmias documented in this encounter Care Teams Panelboard Tank Pumper Relationship Specialty Start Date End Date Bin Bowman MD [address] [place] [address] PCP - General General Internal Medicine 04/21/17/03/01 documented as of this encounter
--- OUTSIDE RECORDS SUMMARY | 2024-06-04 20:46 | XMS_ITS | Encounter Summary ---
Author Organization [facility]iam [facility] [address] Care Team Providers Care Hand Tool Filer Name Role Phone Bin Bowman MD Primary Care Provider Encounter Details Date Type Department Care Team (Late st Contact Info) Description 12/16/2020 Telephone Cardiology at [address] [phone] Paul Asher [facility] [place] [address] Social History Tobacco Use Types Packs/Day Years [...] encounter Miscellaneous Notes * Telephone Encounter - Paul Asher DO - 12/16/2020 8:41 AM EST Telephone Note See Dr. Painter note from last night for full details. Provider calling back today for final discharge medication recs: Cardioverted in ER last now, now back in NSR in the 60s On amiodarone 200g QD Metoprolol succinate 25mg QD (decrease from 125mg BID per advice of Dr. Culver) Pt has follow up with Mary Daley in EP here on 12/18 Recommended the below medication changes. - increase to amio 400mg BID x 2 weeks -> 200mg QD - increase metoprolol to 50mg QD Ultimately defer final recs to EP. Siddhartha Asher DO Senior Java Software Developer; PGY-5 12/16/2020 documented in this encounter Plan of Treatment Upcoming Encounters Date Type Department Care Team (Latest Contact Info) Description 06/07/2024 2:00 PM EDT Office [place] [phone] Joan Castro MD [facility] [place] [address] 06/11/2024 1:03 PM EDT Hospital Encounter [place] [phone] Rachel Carrasco MD [facility] [place] [address] 06/11/2024 1:03 PM EDT - 06/11/2024 1:58 PM EDT Surgery [place] [phone] Rachel Carrasco MD [facility] [place] [address] CYSTO, REMOVAL OF STENT, FOREIGN BODY OR CALCULUS, SIMPLE (WRVU 2.81) 06/23/2024 10:00 AM EDT Office Visit Cardiology at [address] [phone] Mo Horne MD [facility] [place] [address] Scheduled Procedures Name Priority Associated Diagnoses Date/Ti me CYSTO, REMOVAL OF STENT, FOR EIGN BODY OR CALCULUS, SIMPLE (WRVU 2.81) NEPHROLITHIASIS 06/11/2024 1:03 PM EDT documented as of this encounter Visit Diagnoses Not on filedocumented in this encounter Care Teams Hand Tool Filer Relationship Specialty Start Date End Date Bin Bowman MD [address] [place] [address] PCP - General General Internal Medicine 04/21/1707/11 documented as of this encounter
--- OUTSIDE RECORDS SUMMARY | 2024-06-04 20:46 | XMS_ITS | Encounter Summary ---
Author Organization [facility] [place] [address] Care Team Providers Care Health And Safety Tech Name Role Phone Bin Bowman MD Primary Care Provider [phone] Reason for Visit * Reason Onset Date Comments Medication Refill 07/11/2020 Encounter Details Date Type Department Care Team (Late st Contact Info) Description 07/11/2020 Refill Cardiology at [address] [phone] Mary Daley PA [facility] [place] [address] Medication Refill Social History Tobacco Use Types [...] 2:00 PM EDT Office [place] [phone] Joan Castro MD [facility] [place] [address] 06/11/2024 1:03 PM EDT Hospital Encounter [place] [phone] Rachel Carrasco MD [facility] [place] [address] 06/11/2024 1:03 PM EDT - 06/11/2024 1:58 PM EDT Surgery [place] [phone] Rachel Carrasco MD [facility] [place] [address] CYSTO, REMOVAL OF STENT, FOREIGN BODY OR CALCULUS, SIMPLE (WRVU 2.81) 06/23/2024 10:00 AM EDT Office Visit Cardiology at [address] [address] Mo Horne MD [facility] [place] [address] Scheduled Procedures Name Priority Associated Diagnoses Date/Ti me CYSTO, REMOVAL OF STENT, FOR EIGN BODY OR CALCULUS, SIMPLE (WRVU 2.81) NEPHROLITHIASIS 06/11/2024 1:03 PM EDT documented as of this encounter Visit Diagnoses Diagnosis Coronary disease Essential hypertension Unspecified essential hypertension Heart palpitations Palpitations documented in this encounter Care Teams Health And Safety Tech Relationship Specialty Start Date End Date Bin Bowman MD [address] [place] [address] PCP - General General Internal Medicine 04/21/1707/11 documented as of this encounter
--- OUTSIDE RECORDS SUMMARY | 2024-06-04 20:46 | XMS_ITS | Encounter Summary ---
Author Organization [facility] [place] [address] Care Team Providers Care Pill Coater Name Role Phone Bin Bowman MD Primary Care Provider Encounter Details Date Type Department Care Team (Late st Contact Info) Description 12/14/2020 Telephone Cardiology at [address] [phone] Teri Bates Social History Tobacco Use Types Packs/Day Years [...] encounter Miscellaneous Notes * Telephone Encounter - Teri Teague - 12/14/2020 8:50 AM EST Call from Esmer @ Dr. Culver office, [facility]. Pt seen in the ED again last night. Started on Joe zhu. Esmer will be faxing updated ED records to us this morning. Would like to move up pt's mapping and ablation date sooner than 01/16/21. LVM for Jose Hogue, RN @ [id number]. Pt has clinic appt with SONNY Hammond on 12/18/20. Teri Teague Electrophysiology Scheduling [id number] option 2 documented in this encounter Plan of Treatment Upcoming Encounters Date Type Department Care Team (Latest Contact Info) Description 06/07/2024 2:00 PM EDT Office [place] [phone] Joan Castro MD [facility] [place] [address] 06/11/2024 1:03 PM EDT Hospital Encounter [place] [address] Rachel Carrasco MD [facility] [place] [address] 06/11/2024 1:03 PM EDT - 06/11/2024 1:58 PM EDT Surgery [place] [phone] Rachel Carrasco MD [facility] [place] [address] CYSTO, REMOVAL OF STENT, FOREIGN BODY OR CALCULUS, SIMPLE (WRVU 2.81) 06/23/2024 10:00 AM EDT Office Visit Cardiology at [address] [place] [address] Mo Horne MD [facility] [place] [address] Scheduled Procedures Name Priority Associated Diagnoses Date/Ti me CYSTO, REMOVAL OF STENT, FOR EIGN BODY OR CALCULUS, SIMPLE (WRVU 2.81) NEPHROLITHIASIS 06/11/2024 1:03 PM EDT documented as of this encounter Visit Diagnoses Not on filedocumented in this encounter Care Teams Pill Coater Relationship Specialty Start Date End Date Bin Bowman MD [address] [place] [address] PCP - General General Internal Medicine 04/21/1707/11 documented as of this encounter
--- OUTSIDE RECORDS SUMMARY | 2024-06-04 20:46 | XMS_ITS | Encounter Summary ---
Author Organization [facility] [place] [address] Care Team Providers Care Waste Collector Name Role Phone Bin Bowman MD Primary Care Provider Encounter Details Date Type Department Care Team (Late st Contact Info) Description 12/16/2020 External Results [place] [address] Social History Tobacco Use Types [...] PM EDT Office Visit [place] [address] Joan Castro MD [facility] [place] [address] 06/11/2024 1:03 PM EDT Hospital Encounter [place] [address] Rachel Carrasco MD [facility] [place] [address] 06/11/2024 1:03 PM EDT - 06/11/2024 1:58 PM EDT Surgery Main Operating Room [facility] [place] [address] Rachel Carrasco MD [facility] [place] [address] CYSTO, REMOVAL OF STENT, FOREIGN BODY OR CALCULUS, SIMPLE (WRVU 2.81) 06/23/2024 10:00 AM EDT Office Visit Cardiology at [address] [place] [address] Mo Horne MD [facility] [place] [address] Scheduled Procedures Name Priority Associated Diagnoses Date/Ti me CYSTO, REMOVAL OF STENT, FOR EIGN BODY OR CALCULUS, SIMPLE (WRVU 2.81) NEPHROLITHIASIS 06/11/2024 1:03 PM EDT documented as of this encounter Procedures Procedure Name Priority Date/Time Associated Diagnosis Comments ECG SCAN Routine 12/16/2020 documented in this encounter Results * Scan Doc: ECG (12/16/2020) Historical Provider MEDIA MGR SCAN EX T ORDR/RSLT documented in this encounter Visit Diagnoses Not on filedocumented in this encounter Care Teams Waste Collector Relationship Specialty Start Date End Date Bin Bowman MD [address] [place] [address] PCP - General General Internal Medicine 04/21/1707/11 documented as of this encounter
--- OUTSIDE RECORDS SUMMARY | 2024-06-04 20:46 | XMS_ITS | Encounter Summary ---
Author Organization [facility] Address [facility] [place] [address] Care Team Providers Care Medical Staff Physician Name Role Phone Bin Bowman MD Primary Care Provider Encounter Details Date Type Department Care Team (Late st Contact Info) Description 12/14/2020 External [place] [address] Social History Tobacco Use Types [...] 2:00 PM EDT Office [place] [address] Joan Castro MD [facility] [place] [address] 06/11/2024 1:03 PM EDT Hospital Encounter [place] [phone] Rachel Carrasco MD [facility] [place] [address] 06/11/2024 1:03 PM EDT - 06/11/2024 1:58 PM EDT Surgery Main Operating Room [facility] [place] [address] Rachel Carrasco MD [facility] [place] [address] CYSTO, REMOVAL OF STENT, FOREIGN BODY OR CALCULUS, SIMPLE (WRVU 2.81) 06/23/2024 10:00 AM EDT Office Visit Cardiology at [address] [place] [address] Mo Horne MD [facility] [place] [address] Scheduled Procedures Name Priority Associated Diagnoses Date/Ti me CYSTO, REMOVAL OF STENT, FOR EIGN BODY OR CALCULUS, SIMPLE (WRVU 2.81) NEPHROLITHIASIS 06/11/2024 1:03 PM EDT documented as of this encounter Procedures Procedure Name Priority Date/Time Associated Diagnosis Comments ECG SCAN Routine 12/14/2020 ECG SCAN Routine 12/14/2020 ECG SCAN Routine 12/14/2020 documented in this encounter Results * Scan Doc: ECG (12/14/2020) Historical Provider MEDIA MGR SCAN EX T ORDR/RSLT * Scan Doc: ECG (12/14/2020) Historical Provider MEDIA MGR SCAN EX T ORDR/RSLT * Scan Doc: ECG (12/14/2020) Historical Provider MEDIA MGR SCAN EX T ORDR/RSLT documented in this encounter Visit Diagnoses Not on filedocumented in this encounter Care Teams Medical Staff Physician Relationship Specialty Start Date End Date Bin Bowman MD [address] [place] [phone] PCP - General General Internal Medicine 04/21/1707/11 documented as of this encounter
--- OUTSIDE RECORDS SUMMARY | 2024-06-04 20:46 | XMS_ITS | Encounter Summary ---
Author Organization Formerly [facility], [facility] [place] [address] Care Team Providers Care Folder Taper Operator Name Role Phone Bin Bowman MD Primary Care Provider [phone] Reason for Visit * Reason Onset Date Comments Follow-up 01/04/2021 Encounter Details Date Type Department Care Team (Late st Contact Info) Description 01/04/2021 Telephone Cardiology at [address] [phone] Lennie Garcia, RN Follow-up Social History Tobacco [...] Telephone Encounter - Lennie Garcia, RN - 01/04/2021 9:41 AM ESTSummary: Update to Case TC from pt's Autumn regarding Rolo's recent/frequent hospitalizations [...] case to a sooner date than 01/16 Was able to get confirmation by EP flower shop laborer/designercrime lab technician & Dr. Escobar to move forward with case date of 01/10 Discussed w/ Autumn and relayed information with her. She was agreeable & they will come forprocedure on 01/10 w/ arrival time of 9:30 for 10:30 am case They understand that amiodarone should be stopped today (beginning with no dose this afternoon) They are hesitant to stop the amiodarone for fear of another ED visit & they asked to hear fromDr. Escobar. Messaged Dr. Escobar to ask to give them a call documented in this encounter Plan of Treatment Upcoming Encounters Date Type Department Care Team (Latest Contact Info) Description 06/07/2024 2:00 PM EDT Office [place] [address] Joan Castro MD [facility] [place] [address] 06/11/2024 1:03 PM EDT Hospital Encounter Main Operating Room [place] [phone] Rachel Carrasco MD [facility] [place] [address] 06/11/2024 1:03 PM EDT - 06/11/2024 1:58 PM EDT [place] [phone] Rachel Carrasco MD [facility] [place] [address] CYSTO, REMOVAL OF STENT, FOREIGN BODY OR CALCULUS, SIMPLE (WRVU 2.81) 06/23/2024 10:00 AM EDT Office Visit Cardiology at [address] [place] [phone] Mo Horne MD [facility] [place] [address] Scheduled Procedures Name Priority Associated Diagnoses Date/Ti me CYSTO, REMOVAL OF STENT, FOR EIGN BODY OR CALCULUS, SIMPLE (WRVU 2.81) NEPHROLITHIASIS 06/11/2024 1:03 PM EDT documented as of this encounter Visit Diagnoses Not on filedocumented in this encounter Care Teams Folder Taper Operator Relationship Specialty Start Date End Date Bin Bowman MD [address] [place] [address] PCP - General General Internal Medicine 04/21/1707/11 documented as of this encounter
--- OUTSIDE RECORDS SUMMARY | 2024-06-04 20:46 | XMS_ITS | Encounter Summary ---
[place] [address] Care Team Providers Care Mill Control Operator Name Role Phone Bin Bowman MD Primary Care Provider Encounter Details Date Type Department Care Team (Late st Contact Info) Description 12/05/2020 Telephone Cardiology at [address] [phone] Ivonne Nicole, RN Social History Tobacco Use [...] Telephone Encounter - Ivonne Nicole, RN - 12/05/2020 3:58 PM EST TC from Mrs Autumn Aguilar regarding Mr Aguilar's dose of Metoprolol which has been increased back to 125mg, Bid, for Heart Rate, above 150[address]. [address] Escobar's notes from Mr Aguilar's visit on 09/06/2020, regarding tapering off the metoprolol, as long as Mr Aguilar is doing well, and Plan to RTC in 1 year with CAROLANNO. No plan for repeat EP study in notes at this time. Advised Mr Aguilar stay on Metoprolol 125mg, BID, per orders for now, unless this is changed, by his doctor. The patient indicates understanding of these issues and agrees with the plan. documented in this encounter Plan of Treatment Upcoming Encounters Date Type Department Care Team (Latest Contact Info) Description 06/07/2024 2:00 PM EDT Office Visit [place] [phone] Joan Castro MD [facility] [place] [address] 06/11/2024 1:03 PM EDT Hospital Encounter [place] [phone] Rachel Carrasco MD [facility] [place] [address] 06/11/2024 1:03 PM EDT - 06/11/2024 1:58 PM EDT Surgery [place] [phone] Rachel Carrasco MD [facility] [place] [address] CYSTO, REMOVAL OF STENT, FOREIGN BODY OR CALCULUS, SIMPLE (WRVU 2.81) 06/23/2024 10:00 AM EDT Office Visit Cardiology at [address] [place] [address] Mo Horne MD [facility] [place] [address] Scheduled Procedures Name Priority Associated Diagnoses Date/Ti me CYSTO, REMOVAL OF STENT, FOR EIGN BODY OR CALCULUS, SIMPLE (WRVU 2.81) NEPHROLITHIASIS 06/11/2024 1:03 PM EDT documented as of this encounter Visit Diagnoses Not on filedocumented in this encounter Care Teams Mill Control Operator Relationship Specialty Start Date End Date Bin Bowman MD [address] [place] [address] PCP - General General Internal Medicine 04/21/1707/11 documented as of this encounter
--- OUTSIDE RECORDS SUMMARY | 2024-06-04 20:46 | XMS_ITS | Encounter Summary ---
Author Organization [facility] [place] [address] Care Team Providers Care Project Internship Name Role Phone Bin Bowman MD Primary Care Provider Reason for Visit * Reason Comments Medication Refill Encounter Details Date Type Department Care Team (Late st Contact Info) Description 10/19/2020 Refill Cardiology at [address] [phone] Jeremie Patton MD [facility] [place] [address] Medication Refill Social History Tobacco Use Types [...] 2:00 PM EDT Office [place] [phone] Joan Castro MD [facility] [place] [address] 06/11/2024 1:03 PM EDT Hospital Encounter [place] [address] Rachel Carrasco MD [facility] [place] [address] 06/11/2024 1:03 PM EDT - 06/11/2024 1:58 PM EDT Surgery [place] [address] Rachel Carrasco MD [facility] [place] [address] CYSTO, REMOVAL OF STENT, FOREIGN BODY OR CALCULUS, SIMPLE (WRVU 2.81) 06/23/2024 10:00 AM EDT Office Visit Cardiology at [address] [place] [address] Mo Horne MD [facility] [place] [address] Scheduled Procedures Name Priority Associated Diagnoses Date/Ti me CYSTO, REMOVAL OF STENT, FOR EIGN BODY OR CALCULUS, SIMPLE (WRVU 2.81) NEPHROLITHIASIS 06/11/2024 1:03 PM EDT documented as of this encounter Visit Diagnoses Diagnosis Coronary disease Essential hypertension Unspecified essential hypertension Heart palpitations Palpitations documented in this encounter Care Teams Project Internship Relationship Specialty Start Date End Date Bin Bowman MD [address] [place] [address] PCP - General General Internal Medicine 04/21/1707/11 documented as of this encounter
--- OUTSIDE RECORDS SUMMARY | 2024-06-04 20:46 | XMS_ITS | Encounter Summary ---
Author Organization [facility] Address [facility] [place] [address] Care Team Providers Care Ventilating Expert Name Role Phone Bin Bowman MD Primary Care Provider Encounter Details Date Type Department Care Team (Late st Contact Info) Description 12/16/2020 [place] [address] Humza Wilson MD [facility] [place] [address] Social History Tobacco Use Types Packs/Day Years [...] encounter Miscellaneous Notes * Telephone Encounter - Humza Wilson MD - 12/16/2020 10:17 PM EST Telephone Triage Note Initial contact date: 12/16/2020 Initial contact time: 10:17 PM Referring provider: Dr. Ocampo Patient location: [facility] Past medical history: Past Medical History: ??1) ??Supraventricular tachycardia (see above) ??2) ??Atrial tachycardia/fibrillation (see above) ??3)?Coronary artery disease >?July 2017 at [facility]: Non-STEMI (EMMY of OM1) >?LVEF 55-60% >?Aspirin, statin, beta helen ??4)?Atypical chest pain (costchondritis, gastroesophageal reflux) ??5) ??Hypertension ??6)?Sleep apnea (referral made to Sleep Clinic as of April 2020)) ??7) ??Morbid obesity ??8) ??Bipolar disorder with anxiety ??9) ??RICARDO ??0) ??S/p surgeries >?Tonsillectomy >?Cholecystectomy??? History Presents today with narrow complex tachycardia, which appears to be flutter. See notes from Dr. Dominique 12/14, Dr. Painter 12/[address] Asher earlier today. He had been weaned down over time from a maximum of 125 mg BID metoprolol to 50 mg daily. Was admitted and on a diltiazem drip as well as amiodarone 200 mg daily and low dose metoprolol. He was cardioverted yesterday and was in sinus rhythm. Discharge recommendations were amiodarone 400 mg BID and metoprolol 50 mg QD. He went home and was doingwell but suddenly worsened after walking with his dog. In the ED so far planned metoprolol IV x3. Discussed amiodarone bolus as well. We had discussed that he does have a planned repeat ablation which is due for January 16 and an outpatient visit with Mary Daley 12/18 but that clearly with his recurrent visits it is reasonable for EP assessment and likely up-titration of his florencia blockers. Pertinent diagnostic findings: Vitals: BP 135/89 HR 146 RR 12 SaO2 93% EKG: Atrial flutter with 2:1 block. Troponin Negative CXR: Pending Plan: - Load with amiodarone drip 150 mg bolus and drip at 1 mg/minute for 6 hours than 0.5 mg/minute. - Will continue metoprolol and uptitrate this. - Will accept in transfer for EP evaluation. Noted that it may just be a decision on antiarrhythmicoptions. Humza Wilson MD 12/16/2020 10:17 PM documented in this encounter Plan of Treatment Upcoming Encounters Date Type Department Care Team (Latest Contact Info) Description 06/07/2024 2:00 PM EDT Office [place] [phone] Joan Castro MD [facility] [place] [address] 06/11/2024 1:03 PM EDT Hospital Encounter Main Operating Room [place] [phone] Rachel Carrasco MD [facility] [place] [address] 06/11/2024 1:03 PM EDT - 06/11/2024 1:58 PM EDT Surgery Main Operating Room [place] [phone] Rachel Carrasco MD [facility] [place] [address] CYSTO, REMOVAL OF STENT, FOREIGN BODY OR CALCULUS, SIMPLE (WRVU 2.81) 06/23/2024 10:00 AM EDT Office Visit Cardiology at [address] [place] [address] Mo Horne MD [facility] [place] [address] Scheduled Procedures Name Priority Associated Diagnoses Date/Ti me CYSTO, REMOVAL OF STENT, FOR EIGN BODY OR CALCULUS, SIMPLE (WRVU 2.81) NEPHROLITHIASIS 06/11/2024 1:03 PM EDT documented as of this encounter Visit Diagnoses Not on filedocumented in this encounter Care Teams Ventilating Expert Relationship Specialty Start Date End Date Bin Bowman MD [address] [place] [address] PCP - General General Internal Medicine 04/21/1707/11 documented as of this encounter
--- OUTSIDE RECORDS SUMMARY | 2024-06-04 20:46 | XMS_ITS | Encounter Summary ---
Author Organization [facility] [place] [address] Care Team Providers Care Stamp Machine Servicer Name Role Phone Bin Bowman MD Primary Care Provider [phone] Reason for Visit * Reason Onset Date Comments Questions 07/14/2020 Encounter Details Date Type Department Care Team (Late st Contact Info) Description 07/14/2020 Telephone Cardiology at [address] [phone] Fady Lord RN Questions Social History Tobacco Use Types [...] Telephone Encounter - Fady Lord RN - 07/14/2020 3:35 PM EDT TC from pt Autumn. Asking about pts HR. She stated that every so often she could feel a skipped beat and wanted to know if this was normal. Explained to her about the blanking period after an ablation. Asked if he was experiencing any sx and she said no. It was found randomly. Pt VS 128/84 HR 64 bpm. Pt and are aware to let us know if sx develop with the HR. Verbalized understanding. aware that if pt develops chest pain, SOB, lightheadedness, dizziness to be evaluated by PCP or ED. documented in this encounter Plan of Treatment Upcoming Encounters Date Type Department Care Team (Latest Contact Info) Description 06/07/2024 2:00 PM EDT Office [place] [phone] Joan Castro MD [facility] [place] [address] 06/11/2024 1:03 PM EDT Hospital Encounter [place] [phone] Rachel Carrasco MD [facility] [place] [address] 06/11/2024 1:03 PM EDT - 06/11/2024 1:58 PM EDT Surgery [place] [phone] Rachel Carrasco MD [facility] [place] [address] CYSTO, REMOVAL OF STENT, FOREIGN BODY OR CALCULUS, SIMPLE (WRVU 2.81) 06/23/2024 10:00 AM EDT Office Visit Cardiology at [address] [place] [address] Mo Horne MD [facility] [place] [address] Scheduled Procedures Name Priority Associated Diagnoses Date/Ti me CYSTO, REMOVAL OF STENT, FOR EIGN BODY OR CALCULUS, SIMPLE (WRVU 2.81) NEPHROLITHIASIS 06/11/2024 1:03 PM EDT documented as of this encounter Visit Diagnoses Not on filedocumented in this encounter Care Teams Stamp Machine Servicer Relationship Specialty Start Date End Date Bin Bowman MD [address] [place] [address] PCP - General General Internal Medicine 04/21/1707/11 documented as of this encounter
--- OUTSIDE RECORDS SUMMARY | 2024-06-04 20:46 | XMS_ITS | Encounter Summary ---
Author Organization [facility] Address [facility] [place] [address] Care Team Providers Care Chip Machine Operator Name Role Phone Bin Bowman MD Primary Care Provider Encounter Details Date Type Department Care Team (Late st Contact Info) Description 01/02/2021 Telephone Cardiology at [address] [phone] Obdulio Dominique MD [facility] [place] [address] Social History Tobacco Use Types Packs/Day Years [...] Telephone Encounter - Obdulio Dominique MD - 01/02/2021 10:50 PM EST Cardiology Triage Note 01/02/2021 History of Present Illness See triage note by me from earlier today for full history. Patient has been given diltiazem 20 mg IV push x2, metoprolol tartrate 50 mg and then amiodarone 150 mg IVP and continues to remain in atrial flutter with 2:1 AV conduction, ventricular rate 140 bpm.He continues to have symptoms of dyspnea, lightheadedness, nausea. Assessment & Recommendations Patient has atrial flutter refractory to diltiazem, metoprolol, and IVP amiodarone. On prior hospitalization, he was pharmacologically converted on amiodarone gtt. He has taken all doses of anticoagulation in the past 3 weeks. I think it is reasonable to try amiodarone gtt and transfer to [facility]. The above recommendations are based on my conversation with the referring provider. I have not personally interviewed or examined this patient. Obdulio Dominique MD documented in this encounter Plan of Treatment Upcoming Encounters Date Type Department Care Team (Latest Contact Info) Description 06/07/2024 2:00 PM EDT Office Visit [place] [address] Joan Castro MD [facility] [place] [address] 06/11/2024 1:03 PM EDT Hospital Encounter [place] [phone] Rachel Carrasco MD [facility] [place] [address] 06/11/2024 1:03 PM EDT - 06/11/2024 1:58 PM EDT Surgery [place] [phone] Rachel Carrasco MD [facility] [place] [address] CYSTO, REMOVAL OF STENT, FOREIGN BODY OR CALCULUS, SIMPLE (WRVU 2.81) 06/23/2024 10:00 AM EDT Office Visit Cardiology at [address] [place] [phone] Mo Horne MD [facility] [place] [address] Scheduled Procedures Name Priority Associated Diagnoses Date/Ti me CYSTO, REMOVAL OF STENT, FOR EIGN BODY OR CALCULUS, SIMPLE (WRVU 2.81) NEPHROLITHIASIS 06/11/2024 1:03 PM EDT documented as of this encounter Visit Diagnoses Not on filedocumented in this encounter Care Teams Chip Machine Operator Relationship Specialty Start Date End Date Bin Bowman MD [address] [place] [address] PCP - General General Internal Medicine 04/21/1707/11 documented as of this encounter
--- OUTSIDE RECORDS SUMMARY | 2024-06-04 20:46 | XMS_ITS | Encounter Summary ---
Author Organization [facility] Address [facility] [place] [address] Care Team Providers Care State'S Attorney Name Role Phone Bin Bowman MD Primary Care Provider [phone] Encounter Details Date Type Department Care Team (Late st Contact Info) Description 01/02/2021 Telephone Cardiology at [address] [phone] Obdulio Dominique MD [facility] [place] [address] Social History Tobacco Use Types Packs/Day Years [...] Encounter - Obdulio Dominique MD - 01/02/2021 8:30 PM EST Cardiology Triage Note 01/02/2021 History of Present Illness See telephone note by me from earlier today for full history ECG: Atrial flutter with 2:1 AV conduction, ventricular rate 140 bpm Assessment & Recommendations This is a challenging situation as patient has resistant atrial flutter. He is planned for ablationon 2020 and so was instructed to stop amiodarone today. - attempt diltiazem 20 mg IVP up to 3 times and metoprolol tartrate 50 mg po to lower ventricular rate; if successful can discharge on diltiazem ER 120 mg daily and metoprolol succinate 100 mg daily - if not successful, try amiodarone 150 mg IVP bolus; if responsive, can restart amiodarone 400 mg twice daily and will see EP outpatient in clinic - if not successful, can start amiodarone gtt and transfer to [facility] [place] evaluation, may need to attempt another cardioversion The above recommendations are based on my conversation with the referring provider. I have not personally interviewed or examined this patient. Obdulio Dominique MD documented in this encounter Plan of Treatment Upcoming Encounters Date Type Department Care Team (Latest Contact Info) Description 06/07/2024 2:00 PM EDT Office Visit [place] [phone] Joan Castro MD [facility] [place] [address] 06/11/2024 1:03 PM EDT Hospital Encounter Main Operating Room [place] [phone] Rachel Carrasco MD [facility] [place] [address] 06/11/2024 1:03 PM EDT - 06/11/2024 1:58 PM EDT Surgery Main Operating Room [place] [phone] Rachel Carrasco MD [facility] [place] [address] CYSTO, REMOVAL OF STENT, FOREIGN BODY OR CALCULUS, SIMPLE (WRVU 2.81) 06/23/2024 10:00 AM EDT Office Visit Cardiology at [address] [place] [phone] Mo Horne MD [facility] [place] [address] Scheduled Procedures Name Priority Associated Diagnoses Date/Ti me CYSTO, REMOVAL OF STENT, FOR EIGN BODY OR CALCULUS, SIMPLE (WRVU 2.81) NEPHROLITHIASIS 06/11/2024 1:03 PM EDT documented as of this encounter Visit Diagnoses Not on filedocumented in this encounter Care Teams State'S Attorney Relationship Specialty Start Date End Date Bin Bowman MD [address] [place] [address] PCP - General General Internal Medicine 04/21/1707/11 documented as of this encounter
--- OUTSIDE RECORDS SUMMARY | 2024-06-04 20:46 | XMS_ITS | Encounter Summary ---
Author Organization [facility] Address [facility] [place] [address] Care Team Providers Care Tanning Solution Maker Name Role Phone Bin Bowman MD Primary Care Provider Encounter Details Date Type Department Care Team (Late st Contact Info) Description 01/02/2021 Telephone Cardiology at [address] [phone] Obdulio Dominique MD [facility] [place] [address] Social History Tobacco Use Types Packs/Day Years [...] Encounter - Obdulio Dominique MD - 01/02/2021 6:55 PM EST Cardiology Telephone Note 01/02/2021 Rolo Aguilar is a 50 y.o. male with a history of SVT s/p ablation (07/10/2020), paroxysmal AF (on apixaban),??ASCVD (s/p NSTEMI, EMMY to OM1 in 07/2017), HTN, sleep apnea, RICARDO who was [place] [facility] [place]/ RVR who called in to report symptoms of rapid heart rate, palpit aitons, nausea, and lightheadedness. He was informed to stop amiodarone po today in preparation for ablation on 01/16/2021. Since stoppingamiodarone 200 mg this morning, he has now developed acute palpitations, nausea, and lightheadedness. He denies chest pain, presyncope. He feels that he is back in atrial fibrillation. I advised patient to have his drive him to [facility] for ECG to identify arrhythmia if that is the underlying issue. From there, further treatment can be performed. Obdulio Dominique MD documented in this encounter Plan of Treatment Upcoming Encounters Date Type Department Care Team (Latest Contact Info) Description 06/07/2024 2:00 PM EDT Office [place] [address] Joan Castro MD [facility] [place] [address] 06/11/2024 1:03 PM EDT Hospital Encounter Main Operating Room [place] [phone] Rachel Carrasco MD [facility] [place] [address] 06/11/2024 1:03 PM EDT - 06/11/2024 1:58 PM EDT Surgery [place] [phone] Rachel Carrasco MD [facility] [place] [address] CYSTO, REMOVAL OF STENT, FOREIGN BODY OR CALCULUS, SIMPLE (WRVU 2.81) 06/23/2024 10:00 AM EDT Office Visit Cardiology at [address] [place] [phone] Mo Horne MD [facility] [address] Scheduled Procedures Name Priority Associated Diagnoses Date/Ti me CYSTO, REMOVAL OF STENT, FOR EIGN BODY OR CALCULUS, SIMPLE (WRVU 2.81) NEPHROLITHIASIS 06/11/2024 1:03 PM EDT documented as of this encounter Visit Diagnoses Not on filedocumented in this encounter Care Teams Tanning Solution Maker Relationship Specialty Start Date End Date Bin Bowman MD [address] [place] [id number] PCP - General General Internal Medicine 04/21/1707/11 documented as of this encounter
--- OUTSIDE RECORDS SUMMARY | 2024-06-04 20:46 | XMS_ITS | Encounter Summary ---
Author Organization [facility] Address [facility] [place] [address] Care Team Providers Care Corporate Tutor Name Role Phone Bin Bowman MD Primary Care Provider Encounter Details Date Type Department Care Team (Latest Contact Info) Description 09/06/2020 2:00 PM EDT Office Visit Cardiology at [address] [phone] Fadi Escobar MD [facility] [place] [address] H/O cardiac radiofrequency ablation; Coronary disease; Essential hypertension; Heart palpitations; SVT (supraventricular tachycardia); Atrial tachycardia; Atrial arrhythmia Social History Tobacco Use Types [...] Sign Reading Time Taken Comments Blood Pressure 127/76 09/06/2020 1:55 PM EDT Pulse 68 09/06/2020 1:55 PM EDT Temperature - - Respiratory Rate - - Oxygen Saturation 100% 09/06/2020 1:55 PM EDT Inhaled Oxygen Concentration - - Weight 182.1 kg (401 lb 8 oz) 09/06/2020 1:55 PM EDT Height 167.6 cm (5' 6) 09/06/2020 1:55 PM EDT Body Mass Index 64.8 09/06/2020 1:55 PM EDT documented in this encounter Progress Notes * Stephany Cardenas MD - 09/06/2020 2:00 PM EDT [facility] [place] REFERRING PROVIDER: Bin Bowman Md [address] [place] [address] PRIMARY CARE PROVIDER: Bin Bowman MD [address] [place] [address] * Fadi Escobar MD - 09/06/2020 2:00 PM EDT Cardiac Electrophysiology [facility] September 06, 2020 (previous telehealth visit May 16, 2020) Olericulture Teacher: Jeremie Patton MD; Jose Culver MD Primary Care Physician: Bin Bowman MD ?? Reason for Visit: Follow up s/p radiofrequency ablation Backgound: Mr. Aguilar is a nice 49 year old gentleman referred by Jose Culver MD, for severalrecent manifestly symptomatic cardiac dysrhythmias. [facility]. [facility] of supraventricular tachycardia (SVT) at arate of 164/minute. He was given adenosine, and evidently reverted to a faster poorly tolerated wide complex tachycardia. In response to this, direct current cardioversion was accomplished (300 Jouleapplications x 3, first 2 followed by with sinus rhythm reemergence of SVT in [...] monitoring,but he then remained in sinus rhythm. Recent History: On July 10, he underwent a diagnostic electrophysiology study and associated mapping and ablation procedure; following are the findings and acute outcomes: > Cavotricuspid isthmus dependent atrial flutter elicited, mapped, and ablated (with persiting bidirectional conduction block across the isthmus achieved). > Atrioventricular node slow pathway pathway modification for presumed atrioventricular . > No manifest accessory pathway function was observed. > No sustained ventricular tachycardia was elicited via ventricular extra- stimulus pacing with up to triple extrastimuli into [address] cycle lengths at two separate sites. ?? He subsequently was discharged home on metoprolol succinate dose at 125 mg twice daily (he has concurrent coronary disease and a history of myocardial infarction). He reports no subsequent symptoms suggestive of any atrial dysrhythmias. ?? Past Medical History: 1) Supraventricular tachycardia (see above) 2) Atrial tachycardia/fibrillation (see above) 3) [place]ary artery [place] [facility] Non-[place]I (EMMY of OM1) > LVEF 55-60% [...] Zoloft [sertraline] ?? Medications: 1) Metoprolol succinate 125 mg twice daily 2) Apixaban initiated (initiated April 2020) 3) Lisinopril 2.5 mg daily 4) Pantoprazole 40 mg daily 5) Lamotrigine 100 mg daily 6) Hydrochlorothiazide 12.5 mg daily 7) Clonazepam 1 mg daily 8) Atorvastatin 80 mg daily 9) Aspirin 81 mg daily 0) Nitroglycerin 0.4 mg sublingual as directed ?? 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 Family History: Not obtained ?? Review of Systems: No known history of diabetes, TIA, stroke, heart failure; no complaint of presyncope, syncope, claudication. No recent progressive angina. Remainder of review of systems was unremarkable, other than as noted in the above history. Physical Examination (cursory): Vital Signs: Blood pressure: 127/76 sitting left arm (cuff). Pulse: 68/minute, regular Ventilations: 16/minute, unlabored Weight: 182 kilograms dressed General: In no acute distress. Articulate and attentive. Skin: Warm and dry, normal turgor. HEENT: Normocephalic, atraumatic; anicteric sclerae. Neck: No elevated jugulovenous distention upright. Chest: Symmetric chest wall expansion with inspiration. Lungs: Clear. Heart: Regular rate. Abdomen: Nondistended. Extremities: Pulses present. Neurological: Grossly intact. Tests: AlixaRxo Monitor (August 02, 2020; analyzed 13 days [...] low overall burden of ectopy were detected. Stress [facility] (March 14, 2019; [facility] Moderate size severely intense fixed inferolateral defect. LVEF 50%. Minimal ischemia. Transthoracic Echocardiogram (May 08, 2020): LVEF 55-60%, moderately dilated left atrium and mildly dilated right atrium. Electrocardiogram (May 06, 2020; 2:25 PM): Sinus rhythm 62/minute, conducted atrial ectopy, QRS duration 100 ms, QTc 380 ms, old inferior infarction. Electrocardiogram (May 06, 2020; 1:40 PM): Atrial fibrillation 159/minute, old inferior infarction. Electrocardiogram (May 06, 2020; 1:34 PM): Atrial fibrillation 159/minute, old inferior infarction. Electrocardiogram (April 27, 2020): Sinus rhythm 82/minute, NC 156 m, QRS duration 102 ms, QTc 416 ms, old inferior infarction. Assessment: Mr. Aguilar had presented with multiple symptomatic dysrhythmias recently. His recentelectrophysiology study was helpful in assessing his existing electrophysiologic substrate - mapping and ablation targeted inferior cavotricuspid isthmus dependent atrial flutter that was elicited, and also suspected atrioventricular florencia reentrant tachycardia was ablated (although this was not explicitly elicited). During that procedure, no ventricular tachycardia was elicited, and no accessorypathway was identified. I reviewed all of this with him once more. Subsequent to that procedure, he repo motivation towards working towards getting healthier (we discussed weight loss and regular moderate exercise). Recommendations: 1) Discussed metoprolol succinate gradual taper to 100 mg daily from 125 mg twice daily (dose reduction starting at 100 mg twice daily as of now, reducing dose by 50 mg/day every 2 weeks, so long as he continues to feel well).rts having done well. He expresses 2) Continue apixaban 5 mg twice daily for now 3) Follow up Zio monitor to be worn in 1 year, with follow up afterward to review results (sooner as needed). documented in this encounter Plan of Treatment Upcoming Encounters Date Type Department Care Team (Latest Contact Info) Description 06/07/2024 2:00 PM EDT Office [place] [address] Joan Castro MD [facility] [place] [address] 06/11/2024 1:03 PM EDT Hospital Encounter Main Operating Room [place] [phone] Rachel Carrasco MD [facility] [place] [address] 06/11/2024 1:03 PM EDT - 06/11/2024 1:58 PM EDT Surgery [place] [phone] Rachel Carrasco MD [facility] [place] [address] CYSTO, REMOVAL OF STENT, FOREIGN BODY OR CALCULUS, SIMPLE (WRVU 2.81) 06/23/2024 10:00 AM EDT Office Visit Cardiology at [address] [place] [address] Mo Horne MD [facility] [place] [address] Scheduled Procedures Name Priority Associated Diagnoses Date/Ti me CYSTO, REMOVAL OF STENT, FOR EIGN BODY OR CALCULUS, SIMPLE (WRVU 2.81) NEPHROLITHIASIS 06/11/2024 1:03 PM EDT documented as of this encounter Procedures Procedure Name Priority Date/Time Associated Diagnosis Comments EKG 12-LEAD Routine 09/06/2020 2:03 PM EDT H/O cardiac radiofrequency ablation Coronary disease Essential hypertension Heart palpitations SVT (supraventricular tachycardia) Atrial tachycardia documented in this encounter Results * EKG 12 Lead (09/06/2020 2:03 PM EDT) Ventricular rate 69 BPM MUSE SYSTEM Atrial Rate 69 BPM MUSE SYSTEM P-R Interval 144 ms MUSE SYSTEM QRS Duration 92 ms MUSE SYSTEM Q-T Interval 378 ms MUSE SYSTEM QTC Calculated (Bezet) 405 ms MUSE SYSTEM Calculated P [place] 20 degrees MUSE SYSTEM Calculated R [place] 32 degrees MUSE SYSTEM Calculated T [place] 24 degrees MUSE SYSTEM INTERPRETATION Sinus rhythm with Premature atrial complexes Possible Inferior infarct , age undetermined Abnormal ECG When compared with ECG of 10-JUL-2020 08:14, Premature atrial complexes are now Present Confirmed by MD KASHMIR, ORLANDO ([id number]) on 09/06/2020 5:15:52 PM MUSE SYSTEM 09/06/2020 2:03 PM EDT 09/06/2020 5:15 PM EDT Fadi Escobar MD ECG ORDERABLES MUSE SYSTEM documented in this encounter Visit Diagnoses Diagnosis H/O cardiac radiofrequency ablation Coronary disease Essential hypertension Unspecified essential hypertension Heart palpitations Palpitations SVT (supraventricular tachycardia) Other specified cardiac dysrhythmias Atrial tachycardia Other specified cardiac dysrhythmias Atrial arrhythmia Cardiac dysrhythmia, unspecified documented in this encounter Care Teams Corporate Tutor Relationship Specialty Start Date End Date Bin Bowman MD [address] [place] [id number] PCP - General General Internal Medicine 04/21/1707/11 documented as of this encounter
--- OUTSIDE RECORDS SUMMARY | 2024-06-04 20:46 | XMS_ITS | Encounter Summary ---
Author Organization [facility] [place] [address] Care Team Providers Care Manager Social Services Name Role Phone Bin Bowman MD Primary Care Provider [phone] Encounter Details Date Type Department Care Team (Late st Contact Info) Description 01/02/2021 External Results [place] [address] Social History Tobacco Use Types [...] 2:00 PM EDT Office [place] [phone] Joan Castro MD [facility] [place] [address] 06/11/2024 1:03 PM EDT Hospital Encounter [place] [address] Rachel Carrasco MD [facility] [place] [address] 06/11/2024 1:03 PM EDT - 06/11/2024 1:58 PM EDT Surgery Main Operating [facility] [place] [address] Rachel Carrasco MD [facility] [place] [address] CYSTO, REMOVAL OF STENT, FOREIGN BODY OR CALCULUS, SIMPLE (WRVU 2.81) 06/23/2024 10:00 AM EDT Office Visit Cardiology at [address] [place] [address] Mo Horne MD [facility] [place] [address] Scheduled Procedures Name Priority Associated Diagnoses Date/Ti me CYSTO, REMOVAL OF STENT, FOR EIGN BODY OR CALCULUS, SIMPLE (WRVU 2.81) NEPHROLITHIASIS 06/11/2024 1:03 PM EDT documented as of this encounter Procedures Procedure Name Priority Date/Time Associated Diagnosis Comments ECG SCAN Routine 01/02/2021 documented in this encounter Results * Scan Doc: ECG (01/02/2021) Historical Provider MEDIA MGR SCAN EX T ORDR/RSLT documented in this encounter Visit Diagnoses Not on filedocumented in this encounter Care Teams Manager Social Services Relationship Specialty Start Date End Date Bin Bowman MD [address] [place] [phone] PCP - General General Internal Medicine 04/21/1707/11 documented as of this encounter
--- OUTSIDE RECORDS SUMMARY | 2024-06-04 20:47 | XMS_ITS | Encounter Summary ---
Author Organization [facility] Address [facility] [place] [address] Care Team Providers Care Transaction Manager Name Role Phone Bin Bowman MD Primary Care Provider Encounter Details Date Type Department Care Team (Late st Contact Info) Description 03/25/2019 4:00 PM EDT Office [place] [phone] Breonna Ambrocio, [facility] [employer] [address] [place] [address] Bloating; Lower abdominal pain; Gastroesophageal reflux disease, esophagitis presence not specified Social History Tobacco Use Types Packs/Day Years Used Date Smoking Tobacco: Former Cigarettes Smokeless Tobacco: Former Chew Alcohol Use Standard Drinks/Week Comments No 0 (1 standard drink = 0.6 oz pur e alcohol) Sex and Gender Information Value Date Recorded Sex Assigned at Not on file Gender Identity Male 02/14/2021 11:07 PM EDT Sexual Orientation Not on file documented as of this encounter Last Filed Vital Signs Vital Sign Reading Time Taken Comments Blood Pressure 120/74 03/25/2019 3:53 PM EDT Pulse 62 03/25/2019 3:53 PM EDT Temperature - - Respiratory Rate - - Oxygen Saturation - - Inhaled Oxygen Concentration - - Weight 136.1 kg (300 lb) 03/25/2019 3:53 PM EDT Height 167.6 cm (5' 6) 03/25/2019 3:53 PM EDT Body Mass Index 48.42 03/25/2019 3:53 PM EDT documented in this encounter Patient Instructions * Patient Instructions* Breonna Ambrocio APRN - 03/25/2019 4:00 PM EDT 1. Increase pantoprazole to 40mg twice daily 30-60 minutes before breakfast and dinner 2. Stool studies at your convenience. Please tile picker the supplies from [place] [employer] and send me a message when you drop off the samples 3. Abdominal x-ray today in 3L. Please let me know after you have this done. 4. Once I get the stool study results, I will treat you with antibiotics 5. The big triggers for GI issues include high fructose corn syrup, gluten (wheat), and lactose 6. I will send you a message with further recommendations after I get the results of the x-ray and stool studies. documented in this encounter Progress Notes * Breonna Ambrocio APRN - 03/25/2019 4:00 PM EDT Ocular Care Technician: Breonna Ambrocio APRN PCP: Bin Bowman MD Requesting Provider: Bin Bowman MD REASON FOR VISIT This is a keren 48 y.o. male with a history significant for bipolar disorder who returns to me today in follow up. GI PROBLEM LIST 1. PAVAN; EGD 12/29/17 normal. Pathology negative. Farmer pH on once daily PPI 01/01/18 negative for pathologic acid reflux. SAP negative. INTERVAL HISTORY- 03/25/19 Was doing well after cholecystectomy until several months ago. Started developing reflux symptoms ago. Taking pantoprazole 40mg. Taking this once daily. Denies dysphagia, odynophagia, and globus. Denies chronic NSAID use. Denies nausea currently. Denies vomiting. Moving his bowels daily. RUQ and LUQ three to four times a day. It's like a sticking pain. Constant pyrosis in abdomen. Bloating and gas. No blood or mucus in stool. [place] type #4-5. Denies abdominal cramping and fecal urgency. Denies constipation. Anxiety has improved since starting mindfulness mediation classes. No longer taking geodon. Has changed his diet since his [place] last year. Eating much healthier and fewer processed foods. Denies unintentional weight loss. INTERVAL HISTORY- 01/20/18 Has been tapering off of geodon for the past month. Having difficulty with the taper. Has developednausea without vomiting. Intermittent chills and flushing for the past month. Unintentional weight loss of 6 lbs over the past week. No appetite. Ondansetron takes the edge off. Denies fevers. Abdominal pain bilateral upper quadrant. Bloating and distension. Daily bowel movements. Stools are normal in consistency. No blood or mucus. Denies anal or rectal pain. No anemia. Denies chronic NSAID use. Farmer pH unremarkable. EGD unremarkable. Was just seen by our hepatology team. Abdominal ultrasound and labs were ordered. Has been having occasional episodes of dysphagia. Takes nitro for chest pain. Has tried increasing esomeprazole dose to twice daily on occasion for the nausea. This seems to help with the reflux symptoms. INTERVAL HISTORY- 10/07/17 Endorses some recent cardiac issues. STEMI. Has not had the EGD and Farmer pH because he has been unable to stop plavix. Food is becoming lodged in his chest. Retrosternal pyrosis. Daily occurrence. Regurgitation. No odynophagia or globus. Has been taking pantoprazole 40mg once daily. Has lost over 50 lbs since last year. Denies vomiting. Sometimes I feel a little sick to my stomach. Abdominal pain LUQ approximately once every week to two weeks. Accompanied by cramping and fecal urgency. Diarrhea. Sometimes my food hasn't been digested. Bloating. Appetite has decreased. Denies early satiety. HPI Here for heartburn and like someone lighted a camp fire in my stomach. Epigastric pain. Burning into throat accompanied by an acidic taste. Post- prandial chest pain. This occurs after eating. Will last for several hours and may occur during the night. Used to have nocturnal waking. Not currently waking up in the night. EKG. Negative. Started on gabapentin for the chest pain. He went to the ED within 2 days of starting medications because I had burning throughout my whole body. Ever since that time I've had problems with my stomach. This was over a year ago. Rare heartburn symptoms prior to that time. Has lost approximately 35 lbs. Initially wasn't intentional. Has recently been making lifestyle changes. Taking lansoprazole once daily in the morning and famotidine at night before bed. Was using carafate for a little while. [place] this helped. Had an EGD in September 2016. Was told everything is normal, although patient states he feels he would like another EGD done by a fairing worker and not a general surgeon. Denies dysphagia, odynophagia, globus. Denies regurgitation, nausea, vomiting. Decreased appetite. Early satiety. Post-prandial bloating frequently. Denies chronic NSAID use. No anemia. Abdominal pain related to heartburn and bloating. Denies diarrhea and constipation. No cramping or urgency. No blood or mucus in stool. No anal or rectal pain. 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 Triggers: Coffee Diet Reviewed: Breakfast; oatmeal Lunch; ramen noodles, burger Dinner; chicken/pork, starch/vegetable. Pizza Coffee/Tea: tea with honey Soda/Juice/Sugary Beverages: none. Stopped drinking soda approximately one month ago. Calcium: yogurt Food allergies: none Sleep: snores, usually feels well rested. ROS Notable for the gastrointestinal symptoms as described above. CONSTITUTIONAL: Denies anorexia, fever, or unintended weight change Allergies Allergies Allergen Reactions ??? Gabapentin ??? Wellbutrin [Bupropion Hcl] ??? Zoloft [Sertraline] Current Medications Medications reviewed and reconciled in e-DH Medical History 1. Bipolar 2. STEMI Surgical History 1. 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 Has 2 step-kids. HABITS Denies current tobacco use. Quit 4 years ago. Occasional alcohol use. Denies using other substances. Family History Mom is alive, age: 83 stomach issues Reflux. Esophageal strictures. Dad is , age: 71 Maternal grandfather stomach cancer No other GI etiologies Recent Tests 1. EGD 10/04/16; unremarkable findings Medication/Diet Trials 1. Lansoprazole 30mg once daily; takes the edge off. 2. Famotidine; doesn't wake up with sx 3. Carafate; helpful 4. Omeprazole; not helpful Physical Exam: Most Recent Vitals: 03/25/19 1553 BP: 120/74 Pulse: 62 Height: 5'6 Weight: 136.1 kg (300 lb) Body mass index is 48.42 kg/m??. GENERAL: Healthy-appearing in no acute distress. Appears stated age. Well nourished. SKIN: Many tattoos. No lesions, rashes, lumps, or angiomas on exposed skin. NEURO: Alert and oriented to person, place, time, and situation. Cranial nerves II-XII intact. PSYCH: Mood appropriate. Good eye contact. Normal interaction. Answers all questions appropriately. Labs: Lab Results Component Value Date WBC 8.7 10/07/2017 HGB 15.2 10/07/2017 HCT 47.1 10/07/2017 MCV 87.5 10/07/2017 PLATELET 217 10/07/2017 Lab Results Component Value Date NA 138 01/23/2018 K 4.2 01/23/2018 CL 99 01/23/2018 CO2 28 01/23/2018 BUN 11 01/23/2018 CREATININE 0.9 01/23/2018 GLUCOSE 107 07/16/2017 CALCIUM 9.2 01/23/2018 ESTGFR >60 07/16/2017 Lab Results Component Value Date ALT 35 01/23/2018 AST 20 01/23/2018 GGT 28 01/23/2018 ALKPHOS 65 01/23/2018 BILITOT 0.6 01/23/2018 BILIDIR 0.2 01/23/2018 ALBUMIN 4.2 01/23/2018 PROT 7.5 01/23/2018 ASSESSMENT This is a keren 46 year old man with a history of bipolar disorder who returns to me today in follow up for PAVAN, bloating, and abdominal pain. Was doing well since the time of his cholecystectomy until several months ago, when his reflux symptoms became refractory to PPI therapy and he began experiencing bloating and abdominal pain. He had a normal EGD in 2018 so I don't feel he needs to repeat this test. We can consider the utility of impedence pH/Farmer pH, but at this point we will stabilizehis symptoms before proceeding with pH testing. Will increase PPI therapy to BID dosing. Differentials include GERD, NERD, FD. We reviewed medication indications, administration, and side effects. Interms of his abdominal pain and bloating, we will get a KUB and stool cultures. In the absence of other findings, will consider manipulation of his gut microbiome with rifaximin or metronidazole. After his symptoms have stabilized, I recommend that he follow up with his PCP for management of GI issues and medication refills, while I will remain available on a consultation basis. He was agreeable to this plan. Differentials include IBS, IBD, SIBO, obstructive etiology PLAN 1. Increase pantoprazole to 40mg twice daily 30-60 minutes before breakfast and dinner 2. Stool culture, fecal calprotectin, and C. Diff antigen. External orders provided 3. KUB to be done at [facility] 4. Once I get the stool study results, I will treat you with antibiotics 5. I will send a message with further recommendations pending results of testing. Patient agrees with the above plan. I did my best to answer their questions. Signed, Breonna Ambrocio APRN 03/26/19 8:01 AM Section of Gastroenterology & Hepatology [facility] ?? documented in this encounter Plan of Treatment Upcoming Encounters Date Type Department Care Team (Latest Contact Info) Description 06/07/2024 2:00 PM EDT Office [place] [phone] Joan Castro MD [facility] [place] [address] 06/11/2024 1:03 PM EDT Hospital Encounter [place] [phone] Rachel Carrasco MD [facility] [place] [address] 06/11/2024 1:03 PM EDT - 06/11/2024 1:58 PM EDT [place] [phone] Rachel Carrasco MD [facility] [place] [address] CYSTO, REMOVAL OF STENT, FOREIGN BODY OR CALCULUS, SIMPLE (WRVU 2.81) 06/23/2024 10:00 AM EDT Office Visit Cardiology at [address] [place] [phone] Mo Horne MD [facility] [place] [address] Scheduled Procedures Name Priority Associated Diagnoses Date/Ti me CYSTO, REMOVAL OF STENT, FOR EIGN BODY OR CALCULUS, SIMPLE (WRVU 2.81) NEPHROLITHIASIS 06/11/2024 1:03 PM EDT documented as of this encounter Visit Diagnoses Diagnosis Bloating Flatulence, eructation, and gas pain Lower abdominal pain Abdominal pain, other specified site Gastroesophageal reflux disease, esophagitis presence not specified documented in this encounter Care Teams Transaction Manager Relationship Specialty Start Date End Date Bin Bowman MD [address] [place] [id number] PCP - General General Internal Medicine 04/21/1707/11 documented as of this encounter
--- OUTSIDE RECORDS SUMMARY | 2024-06-04 20:47 | XMS_ITS | Encounter Summary ---
Author Organization [facility] Address [facility] [place] [address] Care Team Providers Care Ferryboat Pilot Name Role Phone Bin Bowman MD Primary Care Provider [phone] Reason for Visit * Reason Comments Pain Management * Consultation (Routine) - Closed Specialty Diagnoses / Procedures Referred By Zeyad mishra Referred To Contact Pain Management Diagnoses Mononeuropathy, unspecified abdominal nerve entrapment/CT 03/13/19 Jude Dennison V, SON[address] [place] [address] [facility] [address] [place] [phone] Referral ID Status Reason Start Date Expiration Date Visits Re quested Visits Authorized [id number] Closed 05/04/2019 05/03/2020 1 1 Encounter Details Date Type Department Care Team (Late st Contact Info) Description 06/04/2019 8:30 AM EDT Office Visit [facility] [place] [address] Linh Lux MD [facility] [place] [address] Abdominal wall pain in right upper quadrant; Myofascial pain Social History Tobacco Use Types Packs/Day Years [...] Sign Reading Time Taken Comments Blood Pressure 130/82 06/04/2019 8:09 AM EDT Pulse 61 06/04/2019 8:09 AM EDT Temperature - - Respiratory Rate - - Oxygen Saturation 100% 06/04/2019 8:09 AM EDT Inhaled Oxygen Concentration - - Weight 138.1 kg (304 lb 6.4 oz) 06/04/2019 8:09 AM EDT Height 167.6 cm (5' 6) 06/04/2019 8:09 AM EDT Body Mass Index 49.13 06/04/2019 8:09 AM EDT documented in this encounter Progress Notes * Lnih Lux MD - 06/04/2019 8:30 AM EDT [facility] Initial Consultation Note DOS: 06/04/19 : 1970 Rolo Aguilar is a 48 y.o. year old male with a PMH including DE who presents to the pain clinic today at the referral of Jude Dennison PA [address] [place] [address] for consultation regarding Abdominal Pain. CC: Chief Complaint Patient presents with ??? Pain Management HPI: Rolo Aguilar Presents for evaluation of his chronic abdominal pain. He is accompanied today by Autumn. RUQ, and occasional LLQ Abdominal pain with food and associated with nausea. Has had extensive workup including HIDA, Abdominal Xray, CT scan, upper scope, stool studies, pill endoscopy. All tests were negative aside from HIDA scan was + but had to wait approximately one year to get offof plavix due to recent DE prior to lap sourav (one year ago which was not helpful in resolving his symptoms. Never any bowel symptoms but had associated nausea. Taking lansoprazole once daily in the morning and famotidine at night before bed. Was using carafate for a little while. [place] this helped. Approximately 6 weeks ago his PCP astutely found a trigger point In his RUQ and performed a triggerpoint injection with local and steroid which after gave him 100% relief with the local immediately and then since steroids have kicked in he has essentially been pain free for 5 weeks. He has some associated nausea with eating but this is very minimal and only increases when he over eats. He was pre viously using medical cannabis which was helpful but has been off of this for several months since he started a meditation course and continues to meditate daily. He is exercising daily. ?? Pain Description: Duration - a few years ago. Location - predominately in RUQ and occasional at top of left upper quadrant Quality - burning and sharp Weakness - none Numbness/Tingling - None Allodynia- None Pain score: 0/10 today, 0/10 at worst, 0/10 at best, 0/10 on average (all in past week) Prior to injection -08/19 Alleviating factors: None Aggravating factors: Can happen any time, worst after eating Prior Treatments/Medications (Per prior notes and patient): Medications : Topicals - None NSAIDs -None Acetaminophen - Rare -> None Antidepressants - None Antieptileptics - Gabapentin -> SE (for other issue) Muscle Relaxants - None Opioids - None Steroids - None GI cocktail helpful Medical MJ -> helpful PT: None Modalities: Surgery: post a laparoscopic cholecystectomy from 07/21/2018 Injections: TP injection by PCP Chiropractic: None Acupuncture: None Mental Health: 1 per month Meditation: 1 hours per day (8 week course) took place of medical Exercise cardio 1/2 every day ROS: Constitutional: 100 lb weight loss over 1 yr, fevers, chills, or night sweats. HENT: No recent hearing changes. No difficulty swallowing. Eyes: No recent vision changes. Respiratory: No cough or shortness of breath. Cardiovascular: No syncope. Rare chest pain/ palpitations per cards is extra beats GI: No diarrhea,No constipation. No vomiting. + nausea (but very mild since injection) : No dysuria, hesitancy, or urgency. No incontinence. Musculoskeletal: No muscle weakness. Skin: + itching over stomach ? HCTZ Neurologic: No numbness/tingling. No difficulty with balance. Psychiatric: Mood ok. No anxiety anymore. No SI/HI. Sleep is good. Heme/Lymph/Imm: No easy bleeding or brusing. PMH/PSH: Patient Active Problem List Diagnosis Code ??? STEMI (ST elevation myocardial infarction) I21.3 No past medical history on file. Past Surgical History: Procedure Laterality Date ??? PRO LAP, CHOLECYSTECTOMY/GRAPH N/A 07/21/2018 LAPAROSCOPIC CHOLECYSTECTOMY WITH CHOLANGIOGRAM (WRVU 11.47) performed by Colt Hewitt MD [facility] MAIN OR ??? PRO UNLISTED LAPAROSCOPIC PX LVR N/A 07/21/2018 LAPAROSCOPIC LIVER BIOPSY (WRVU 16.52) performed by Colt Hewitt MD at [facility] MAIN OR ??? PRO UPPER GI ENDOSCOPY, BIOPSY N/A 12/29/2017 UPPER GASTROINTESTINAL ENDOSCOPY,WITH BIOPSY SINGLE OR MULTIPLE (WRVU 2.49) performed by Yusuf Tucker MD at [facility] ENDOSCOPY ??? PRO UPPER GI ENDOSCOPY, DIAGNOSTIC N/A 12/29/2017 EGD, UPPER GI ENDOSCOPY performed by Yusuf Tucker MD at [facility] ENDOSCOPY FAMILY HISTORY: See ORT SOCIAL HISTORY: Tobacco : Quit 8 years ago Alcohol : None Recreational drug use : Medical cannabis helpful but stopped using 4 months ago Work :[employer] Home : At home with and mom with dogs, bird, and snake Opioid Risk Tool Female Male 1. Family history of Substance Abuse Alcohol [] 1 [x] 3 Illegal Drugs [] 2 [] 3 Prescription Drugs [] 4 [x] 4 2. Personal History of Substance Abuse Alcohol [] 3 [] 3 Illegal Drugs [] 4 [] 4 Prescription Drugs [] 5 [] 5 3. Age (kathy box if 16-45) [] 1 [] 1 4. History of Preadolescent Sexual Abuse [] 3 [] 0 5. Psychological Disease Attention Deficit Disorder, Obsessive Compulsive D/o, Bipolar, Schizophrenia [] 2 [x] 2 Depression [] 1 [] 1 TOTAL: Comments about ORT in relation to this patient: 9 Opioid Risk Category: high risk >8 FUNCTIONAL STATUS: Independent in all ADLs. MEDICATIONS: Current Outpatient Medications: ??? clindamycin (CLINDAGEL) 1 % Gel, APPLY TOPICALLY TO AFFECTED AREA TWICE DAILY, Disp: , Rfl: 1 ??? hydroCHLOROthiazide (HYDRODIURIL) 12.5 mg Tablet, take 1 tablet by mouth once daily, Disp: , Rfl: 0 ??? pantoprazole (PROTONIX) 40 mg Tablet, Delayed Release (E.C.), Take 1 tablet by mouth 2 times daily., Disp: 180 tablet, Rfl: 3 ??? acetaminophen (TYLENOL) 325 mg Tablet, Take 2 tablets by mouth every 6 hours as needed for Pain., Disp: 30 tablet, Rfl: 1 ??? nitroGLYcerin (NITROSTAT) 0.4 mg Tablet, Sublingual, DISSOLVE 1 UNDER TONGUE NEEDED, Disp: ,Rfl: 4 ??? aspirin 81 mg Tablet, Delayed Release (E.C.), Take 1 tablet by mouth daily., Disp: 30 tablet, Rfl: 3 ??? atorvastatin (LIPITOR) 80 mg Tablet, Take 1 tablet by mouth every evening. (Patient taking differently: Take 40 mg by mouth every evening.), Disp: 90 tablet, Rfl: 3 ??? meTOPROLOL succinate (TOPROL-XL) 50 mg Tablet Sustained Release 24 hr, Take 1 tablet by mouth daily. (Patient taking differently: Take 100 mg by mouth daily.), Disp: 30 tablet, Rfl: 12 ??? lamoTRIgine (LAMICTAL) 200 mg Tablet, Take 1 tablet by mouth daily. (Patient taking differently: Take 100 mg by mouth daily.), Disp: 30 tablet, Rfl: 3 ??? clonazePAM (KLONOPIN) 1 mg Tablet, Take 1 mg by mouth 2 times daily as needed for Anxiety., Disp: , Rfl: ??? sucralfate (CARAFATE) 1 gram Tablet, take 1 tablet by mouth four times a day, Disp: , Rfl: 0 ??? pantoprazole (PROTONIX) 40 mg Tablet, Delayed Release (E.C.), Take 40 mg by mouth daily., Disp:, Rfl: ??? ranitidine (ZANTAC) 150 mg Tablet, Take 150 mg by mouth daily., Disp: , Rfl: ??? NEXIUM 40 mg Capsule, Delayed Release(E.C.), TAKE 1 CAPSULE BY MOUTH 2 TIMES DAILY. (Patient not taking: Reported on 03/25/2019), Disp: 60 capsule, Rfl: 5 ??? ondansetron (ZOFRAN-ODT) 4 mg Tablet, Rapid Dissolve, Take 1 tablet by mouth every 8 hours as needed for Nausea. (Patient not taking: Reported on 08/19/2018), Disp: 20 tablet, Rfl: 0 ??? MARIJUANA ORAL, Take by mouth., Disp: , Rfl: ??? ondansetron (ZOFRAN-ODT) 4 mg Tablet, Rapid Dissolve, Take 1 tablet by mouth every 8 hours as needed for Nausea. (Patient not taking: Reported on 08/19/2018), Disp: 20 tablet, Rfl: 11 ??? lisinopril (PRINIVIL;ZESTRIL) 2.5 mg Tablet, Take 1 tablet by mouth daily. (Patient not taking:Reported on 06/04/2019), Disp: 90 tablet, Rfl: 3 PDMP report checked and no inconsistencies are noted. ALLERGIES: Allergies Allergen Reactions ??? Gabapentin ??? Wellbutrin [Bupropion Hcl] ??? Zoloft [Sertraline] PHYSICAL EXAM: General: Patient is seated comfortably in NAD, well-groomed. HEENT: Head atraumatic, EOMI. Respiratory: Breathing comfortably on RA. Cardiovascular: 2+ peripheral pulses, no swelling Abdominal: non-distended, non-tender to palpation, + BS. No allodynia or hyperalgesia Skin: + red rash over lower abdomen with some excoriations. Psych: Appropriate affect, A&Ox3 , answers questions appropriately Neurologic: integrity specialist - grossly intact Reflexes - 2+ and symmetric in bilateral patellae, and Achilles. No ankle clonus. Motor - 5/5 in all planes of motion in Lower extremities. Sensation - Intact to light touch throughout lower extremities Gait/Station: Normal gait. No loss of balance noted. Transitions from exam room chair to table without difficulty. TESTS/IMAGING: XRAY - abdomen: 04/10/19: No acute abnormality CTA- 03/13/19 Negative chest, abdomen, pelvis CTA A/P: Mr Aguilar is a 48 yr old male with chronic abdominal pain s/p extensive workup and Lap sourav without relief. About six weeks ago he had a trigger point injection in his abdominal wall by his PCP which after the steroid took effect has left him essentially pain free. He is here to establish care for potential future injections should his pain reoccur. Pain is consistent with abdominal walletiology that is myofascial in origin. Procedures: 1. If pain reoccurs will plan for US guided abdominal wall TPI. Adjunctive Therapy: 1. Encouraged patient to continue exercise regimen and meditation practices. Imaging: Not indicated Referrals: Discussed follow up with PCP regarding abdominal rash Medications: Not indicated Thank you for allowing us the opportunity to participate in Mr Aguilar's care. Linh Lux MD [facility] Electrotherapist of Anesthesiology [facility] [address] [address] / [facility] CC: Jude Dennison PA [address] [place] [id number] documented in this encounter Plan of Treatment Upcoming Encounters Date Type Department Care Team (Latest Contact Info) Description 06/07/2024 2:00 PM EDT Office [place] [phone] Joan Castro MD [facility] [place] [address] 06/11/2024 1:03 PM EDT Hospital Encounter Main Operating Room [place] [phone] Rachel Carrasco MD [facility] [place] [address] 06/11/2024 1:03 PM EDT - 06/11/2024 1:58 PM EDT Surgery [place] [phone] Rachel Carrasco MD [facility] [place] [address] CYSTO, REMOVAL OF STENT, FOREIGN BODY OR CALCULUS, SIMPLE (WRVU 2.81) 06/23/2024 10:00 AM EDT Office Visit Cardiology at [address] [phone] Mo Horne MD [facility] [place] [address] Scheduled Procedures Name Priority Associated Diagnoses Date/Ti me CYSTO, REMOVAL OF STENT, FOR EIGN BODY OR CALCULUS, SIMPLE (WRVU 2.81) NEPHROLITHIASIS 06/11/2024 1:03 PM EDT documented as of this encounter Visit Diagnoses Diagnosis Abdominal wall pain in right upper quadrant Abdominal pain, right upper quadrant Myofascial pain Mylagia and myositis, unspecified documented in this encounter Care Teams Ferryboat Pilot Relationship Specialty Start Date End Date Bin Bowman MD [address] [place] [phone] PCP - General General Internal Medicine 04/21/1707/11 documented as of this encounter
--- OUTSIDE RECORDS SUMMARY | 2024-06-04 20:47 | XMS_ITS | Encounter Summary ---
Author Organization [facility], [facility] [place] [address] Care Team Providers Care Cushion Builder Name Role Phone Bin Bowman MD Primary Care Provider [phone] Reason for Visit * Reason Onset Date Comments Questions 06/13/2020 Encounter Details Date Type Department Care Team (Late st Contact Info) Description 06/13/2020 Telephone Cardiology at [address] [phone] Fady Lord RN Questions Social History Tobacco [...] Telephone Encounter - Fady Lord RN - 06/13/2020 2:47 PM EDT Received a call from Esmer from [facility] Cardiology re: plan for this patient. He was just in the ED again last night with tachycardia. (Esmer is working on faxing the records so we can scan into pts chart). Woke up from a sound sleep last night HR was 142 bmp associated with nausea, SOB, lightheadedness. Pt reported that this episode was different than his previous episodes. His HR then went up [address] the ED. Dr. Culver increased metoprolol to 125 mg daily. Today pt has a few palpitations but hasnot felt his heart race as he did last night. Pt states he is completely drained today and feels asthough he has run 5 marathons. Will relay to Dr. Escobar for his review and advisement. documented in this encounter Plan of Treatment Upcoming Encounters Date Type Department Care Team (Latest Contact Info) Description 06/07/2024 2:00 PM EDT Office [place] [phone] Joan Castro MD [facility] [place] [address] 06/11/2024 1:03 PM EDT Hospital Encounter [place] [phone] Rachel Carrasco MD [facility] [place] [address] 06/11/2024 1:03 PM EDT - 06/11/2024 1:58 PM EDT Surgery [place] [phone] Rachel Carrasco MD [facility] [place] [address] CYSTO, REMOVAL OF STENT, FOREIGN BODY OR CALCULUS, SIMPLE (WRVU 2.81) 06/23/2024 10:00 AM EDT Office Visit Cardiology at [address] [phone] Mo Horne MD [facility] [place] [address] Scheduled Procedures Name Priority Associated Diagnoses Date/Ti me CYSTO, REMOVAL OF STENT, FOR EIGN BODY OR CALCULUS, SIMPLE (WRVU 2.81) NEPHROLITHIASIS 06/11/2024 1:03 PM EDT documented as of this encounter Visit Diagnoses Not on filedocumented in this encounter Care Teams Cushion Builder Relationship Specialty Start Date End Date Bin Bowman MD [address] [place] [phone] PCP - General General Internal Medicine 04/21/1707/11 documented as of this encounter
--- OUTSIDE RECORDS SUMMARY | 2024-06-04 20:47 | XMS_ITS | Encounter Summary ---
Author Organization [facility] Address [facility] [place] [address] Care Team Providers Care Car Pick Up Driver Name Role Phone Bin Bowman MD Primary Care Provider Encounter Details Date Type Department Care Team (Late st Contact Info) Description 07/29/2019 9:00 AM EDT Office Visit Cardiology at [address] [phone] Jeremie Patton MD [facility] [place] [address] Coronary disease Social History Tobacco Use Types Packs/Day Years [...] Sign Reading Time Taken Comments Blood Pressure 137/87 07/29/2019 9:06 AM EDT Pulse 61 07/29/2019 9:06 AM EDT Temperature - - Respiratory Rate - - Oxygen Saturation 100% 07/29/2019 9:06 AM EDT Inhaled Oxygen Concentration - - Weight 144.2 kg (318 lb) 07/29/2019 9:06 AM EDT Height 167.6 cm (5' 6) 07/29/2019 9:06 AM EDT Body Mass Index 51.33 07/29/2019 9:06 AM EDT documented in this encounter Progress Notes * Jeremie Patton MD - 07/29/2019 9:00 AM EDT Images from the original note were not included. CARDIOVASCULAR MEDICINE [place] [address] Subjective Identification Rolo Aguilar is a 48 y.o. patient of Bin Bowman MD with the following cardiovascular issues: 1. Coronary disease--- STEMI in Jul 2017 with PCI of OM1. Other vessels ok. EF 60%. Previously followed by Dr. Montes at [facility]. Frequent ER visits initially post DC. Last nuc stress test at [facility] in March 2019 showing scar 2. Palpitations--- investigations showing PVCs. 3. Hypertension 4. Hyperlipidemia Comorbidities include hx of cholelithiasis, GERD, elevated BMI, depression, bipolar illness. Lives in [place], [place]. 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 Present Illness Last contact with [facility] cardiology was phone call in Jun 2018 with slight troponin elevation. He is here to establish care. He recently saw Dr. Patel at [facility] and they did not click. He formerly has been followed by Dr. Montes who has retired from [facility]. We reviewed his past medical history which is documented above. Most recently, he was in the emergency room at [facility] in June with palpitations. They seem to correlate with PVCs and his metoprolol dose was increased. He was also started on the low-dose of hydrochlorothiazide because of elevated blood pressure. He has been monitoring his blood pressure every day and it has been consistently less than 130/80 and usually less than 120. He has felt some improvement in in the palpitations with the increased dose of metoprolol. The palpitations occur about every 3 days and last about 5 to 10 minutes. He has had no syncope or presyncope. He hada nuclear stress test done at [facility] in which apparently showed no concerning abnormalities by the patient's did not have this document. He is staying active by riding exercise bicicle 30 to 45 minutes/day. Has no chest pain doing this.He does have some left upper chest discomfort 5 to 10 minutes with eating He had his gallbladder removed this was a great relief 1 year ago. Medications Current Outpatient Medications: ??? clindamycin (CLINDAGEL) 1 [...] evening.), Disp: 90 tablet, Rfl: 3 ??? lisinopril (PRINIVIL;ZESTRIL) 2.5 mg Tablet, Take 1 tablet by mouth daily., Disp: 90 tablet, Rfl: 3 ??? meTOPROLOL [...] needed for Anxiety., Disp: , Rfl: ??? MARIJUANA ORAL, Take by mouth., Disp: , Rfl: Objective Physical Exam BP 137/87 Pulse 61 Ht 167.6 cm (5' 6) Wt (!) 144.2 kg (318 lb) SpO2 100% BMI 51.33 kg/m?? , Body mass index is 51.33 kg/m??. General: Pleasant. No distress. Skin: Warm and dry. HEENT: Anicteric sclera. Neck: JVP not elevated. No AJR. No carotid bruits. Chest: Clear Heart: HS regular. No murmurs. Abdomen: Nondistended. Soft. Nontender. Extremities: No edema SEPARATOR TENDER: Normal mentation. Psych: Appropriate affect. Labs Lab Results Component Value Date NA 138 01/23/2018 K 4.2 01/23/2018 CL 99 01/23/2018 CO2 28 01/23/2018 BUN 11 01/23/2018 CREATININE 0.9 01/23/2018 CHLPL 121 07/14/2017 HDL 37 (L) 07/14/2017 CHOLHDL 3.3 07/14/2017 TRIG 72 07/14/2017 LDLCHOL 70 07/14/2017 Assessment and Plan 1. Coronary disease: Stable. He is having no exertional angina. I do not think his prandial chest discomfort is angina bec he has none with more strenuous exertion. Recommend continued use of metoprolol, aspirin, and high intensity statin. Will request nuc stress test result from [facility]. 2. Palpitations: Improved with increased dose of metoprolol. Follow up [address] [facility] Lexiscan report received from [facility] from March. Showed large fixed inferolateral defect. No ischemia. EF 50%. cc: Bin Bowman MD [address] / [place] [address] documented in this encounter Plan of Treatment Upcoming Encounters Date Type Department Care Team (Latest Contact Info) Description 06/07/2024 2:00 PM EDT Office Visit [place] [phone] Joan Castro MD [facility] [address] 06/11/2024 1:03 PM EDT Hospital Encounter [place] [phone] Rachel Carrasco MD [facility] [place] [address] 06/11/2024 1:03 PM EDT - 06/11/2024 1:58 PM EDT Surgery Main Operating Room [facility] [place] [address] Rachel Carrasco MD [facility] [place] [address] CYSTO, REMOVAL OF STENT, FOREIGN BODY OR CALCULUS, SIMPLE (WRVU 2.81) 06/23/2024 10:00 AM EDT Office Visit Cardiology at [address] [phone] Mo Horne MD [facility] [place] [address] Scheduled Procedures Name Priority Associated Diagnoses Date/Ti me CYSTO, REMOVAL OF STENT, FOR EIGN BODY OR CALCULUS, SIMPLE (WRVU 2.81) NEPHROLITHIASIS 06/11/2024 1:03 PM EDT documented as of this encounter Visit Diagnoses Diagnosis Coronary disease documented in this encounter Care Teams Car Pick Up Driver Relationship Specialty Start Date End Date Bin Bowman MD [address] [place] [id number] PCP - General General Internal Medicine 04/21/1707/11 documented as of this encounter
--- OUTSIDE RECORDS SUMMARY | 2024-06-04 20:47 | XMS_ITS | Encounter Summary ---
Author Organization [facility] [place] [address] Care Team Providers Care Manager Department Name Role Phone Bin Bowman MD Primary Care Provider Encounter Details Date Type Department Care Team (Late st Contact Info) Description 07/22/2018 Telephone [place] [phone] Rachana Wild, RN Social History Tobacco Use Types Packs/Day [...] encounter Miscellaneous Notes * Telephone Encounter - Rachana Wild RN - 07/22/2018 12:21 PM EDT Pt is s/p laparoscopic cholecystectomy 07/21/[address] Hewitt. Pt's called and left a message stating that the oxycodone was not helping much, and wondering if there was anything else that would work better. When I returned her call, she questioned the plvaix prescription that was given to him yesterday. She states that at their last visit with Dr. Montes, he told them that the pt that he was done with the plavix and did not need to start it again. I inquired if the pt was taking any tylenol and she stated that he had just taken 2 tylenol, 2 ibuprofen and 1 oxycodone. She is also concerned that he is not eating correctly and has been doing protein shakes primarily for a while now.She is concerned that he won't return to a healthy eating habit. Plan: I read the note that is scanned into the pt's chart from Dr. Montes. I let the pt's know that while the note states the pt has stopped the plavix, it does not specifically say he shouldstay off of it. I instructed her to contact Dr. Montes's office to clarify. As far as the shakesand eating goes, I let her know that most people after surgery have little appetite or food doesn'ttaste as it should, so shakes are good to supplement. Once the initial post op period has passed, if there are still concerns, they should take them up with his PCP. Since the pt is not currently taking plavix, he should take 2 tylenol every 6 hours with food, 400-600 mg ibuprofen every 6 hours with food and stagger the doses so that he is taking something every 3 hours. He is to take the oxycodone only as needed for pain that is not tolerable after that. Pt's verbalizes her understanding and agrees with the plan. documented in this encounter Plan of Treatment Upcoming Encounters Date Type Department Care Team (Latest Contact Info) Description 06/07/2024 2:00 PM EDT Office [place] [phone] Joan Castro MD [facility] [place] [address] 06/11/2024 1:03 PM EDT Hospital Encounter [place] [phone] Rachel Carrasco MD [facility] UROLOGY [place] [id number] 06/11/2024 1:03 PM EDT - 06/11/2024 1:58 PM EDT Surgery [place] [address] Rachel Carrasco MD [facility] [place] [address] CYSTO, REMOVAL OF STENT, FOREIGN BODY OR CALCULUS, SIMPLE (WRVU 2.81) 06/23/2024 10:00 AM EDT Office Visit Cardiology at [address] [phone] Mo Horne MD [facility] [place] [address] Scheduled Procedures Name Priority Associated Diagnoses Date/Ti me CYSTO, REMOVAL OF STENT, FOR EIGN BODY OR CALCULUS, SIMPLE (WRVU 2.81) NEPHROLITHIASIS 06/11/2024 1:03 PM EDT documented as of this encounter Visit Diagnoses Not on filedocumented in this encounter Care Teams Manager Department Relationship Specialty Start Date End Date Bin Bowman MD [address] [place] [id number] PCP - General General Internal Medicine 04/21/1707/11 documented as of this encounter
--- OUTSIDE RECORDS SUMMARY | 2024-06-04 20:47 | XMS_ITS | Encounter Summary ---
Author Organization [facility] [place] [address] Care Team Providers Care Axminster Rug Setter Name Role Phone Bin Bowman MD Primary Care Provider Reason for Visit * Auth/Cert Specialty Diagnoses / Procedures Referred By Zeyad mishra Referred To Contact Diagnoses BILIARY COLIC Procedures PRO LAP, CHOLECYSTECTOMY/GRAPH PRO UNLISTED LAPAROSCOPIC PX LVR LAPAROSCOPIC CHOLECYSTECTOMY WITH CHOLANGIOGRAM (WRVU 11.47) LAPAROSCOPIC LIVER BIOPSY (WRVU 16.52) Referral ID Status Reason Start Date Expiration Date Visits Re quested Visits Authorized [id number] 1 1 Encounter Details Date Type Department Care Team (Late st Contact Info) Description 07/21/2018 12:20 PM EDT Anesthesia Event [place] [address] Anali Smith MD [facility] [address] Kim Osorio CRNA [facility] [place] [address] Anesthesia Record Procedure Summary Procedure Name Responsible Anesthesiologist Anesthesia Start Time Anesthesia Stop Time LAPAROSCOPIC CHOLECYSTECTOMY WITH CHOLANGIOGRAM (WRVU 11.47) (Abdomen) Anali Smith MD 07/21/18 1220 07/21/18 1415 Events Date Time Event Comment 07/21/2018 1220 Start 1223 AN Verify 1224 An Start Data 1228 An Induction 1230 An Intubation 1231 Anesthesia Ready 1251 Procedure Start 1311 Break/Relief In VAZQUEZDAVONTE BAL PARMJITIDT, TOY ASSEMBLER 1333 Break/Relief In VAZQUEZ Rodney BAL JOSE ANGEL, TOY ASSEMBLER 1404 Extubation/LMA Out Patient h emodynamically stable with adequate tidal volumes and RR. SXNd and extubated awake to . Transferred to recovery on Fm and FIO2. Report to RN. VSS. 1404 an stop data 1415 Recovery or ICU Handoff Kacey ent care was transferred to the destination unit staff after review of the patient's medical history, current anesthetic/surgical status and plan, according to the Provider Handoff Checklist. 1415 Stop 1457 Meds Name Total Midazolam 2 mg fentaNYL 100 mcg IV Lidocaine 100 mg Propofol 200 mg Rocuronium 70 mg ePHEDrine 10 mg Ondansetron 4 mg Dexamethasone 8 mg Neostigmine 4 mg Glycopyrrolate 0.8 mg ceFAZolin (ANCEF) 3g in dextrose 5% 100 mL 3 g Propofol INF 304.92 mg Dexmedetomidine 20 mcg lactated Ringers infusion 1,000 mL 800 m L * Agents Name O2 Air N2O Sevoflurane (et) * Blood No blood administrations on file. Lines, Drains, and Airways Type Details Placement Removal (RETIRED) Peripheral IV Line - Single Lumen 07/21/18; 1157; median cubital vein (antecubital fossa), left; elej-suj-xpziuw catheter system; 18 gauge; uri obrien; 07/21/18; 1612 07/21/18 1157 by Elizabeth Obrien RN 07/21/18 1612 by Cintia Vieira RN ETT Mask Ventilation: Ea sy (1); ETT Type: Cuffed, Oral; ETT Size: 7.5 mm; Mac Blade: 3; Notes: Asleep, Pre-O2, Stylette; Attempts: 1; Laryngoscopy Grade: 1; ETT Placement Verified By: Auscultation, Capnometry, Visual; Secured at Teeth: 23 cm; Inserted by: Jo RICHMOND; Removal Date: 07/21/18; Removal Time: 1404 07/21/18 1230 by Kim Osorio CRNA 07/21/18 1404 by Kim Osorio CRNA NG/OG Tube 07/21/18; 1230; orogastric; 18 Fr; mouth; 07/10/20; 1627 07/21/18 1230 by Kim Osorio CRNA 07/10/20 1627 by Autumn Dobson RN Incision 07/21/18; 1252; abdomen; laparoscopic punctures (specify) (Multiple trocar sites. ); 07/10/20; 1627 07/21/18 1252 by Adriana Neil RN 07/10/20 1627 by Autumn Dobson RN documented in this encounter Social History [...] OR Notes * Anesthesia Postprocedure Evaluation - Anali Smith MD - 07/21/2018 2:57 PM EDT [facility] [place] of Anesthesiology Post-procedure Note Patient: Rolo Aguilar Procedure Summary Date Anesthesia Start Anesthesia Stop Room / Location 07/21/18 1220 1415 [facility] OR 26 / [facility] MAIN OR Procedure Diagnosis Surgeon Responsible Provider LAPAROSCOPIC CHOLECYSTECTOMY WITH CHOLANGIOGRAM (WRVU 11.47) (N/A Abdomen); LAPAROSCOPIC LIVER BIOPSY (WRVU 16.52) (N/A Abdomen) (BILIARY COLIC) Colt Hewitt MD Hartman, Gregg S, MD All Anesthesia Providers: Anesthesiologist: Anali Smith MD TOY ASSEMBLER: Kim Osorio CRNA Most Recent Vitals: 07/21/18 1430 BP: (!) 155/97 Pulse: Resp: 16 Temp: SpO2: 99% Pain 7 (07/21/18 1430) Patient Location: PACU/[facility] Level of Consciousness: Awake and Alert Pain Management: Pain Being Addressed PONV: PONV Resolved with Rx Cardiovascular Status: At Baseline and Hemodynamically Stable Respiratory Status: At Baseline and Room Air Postoperative Fluid Status: Intravascular EUvolemia Possible Anesthetic Complications: NONE apparent at time of evaluation Final Primary Anesthesia Type: General (The anesthetic type performed was the same as planned.) Comments: ANALI SMITH MD * Anesthesia Preprocedure Evaluation - Anali Smith MD - 07/21/2018 11:57 AM EDT Pre-Anesthesia Evaluation for: Rolo Aguilar a 47 y.o. male. Procedure(s): LAPAROSCOPIC CHOLECYSTECTOMY WITH CHOLANGIOGRAM (WRVU 11.47) LAPAROSCOPIC LIVER BIOPSY (WRVU 16.52) Patient Active Problem List Diagnosis ??? STEMI (ST elevation myocardial infarction) No past medical history on file. Past Surgical History: Procedure Laterality Date ??? PRO UPPER GI ENDOSCOPY, BIOPSY N/A 12/29/2017 UPPER GASTROINTESTINAL ENDOSCOPY,WITH BIOPSY SINGLE OR MULTIPLE (WRVU 2.49) performed by Yusuf Tucker MD at [facility] ENDOSCOPY ??? PRO UPPER GI ENDOSCOPY, DIAGNOSTIC N/A 12/29/2017 EGD, UPPER GI ENDOSCOPY performed by Yusuf Tucker MD at [facility] ENDOSCOPY Social History Substance Use Topics ??? Smoking status: Former Smoker Types: Cigarettes ??? Smokeless tobacco: Former User Types: Chew ??? Alcohol use No History Drug Use ??? Yes ??? Special: Marijuana Comment: medical MJ Allergies Allergen Reactions ??? Gabapentin ??? Wellbutrin [Bupropion Hcl] ??? Zoloft [Sertraline] Medications: MAR and/or home medications have been reviewed. Physical Exam: Most Recent Vitals: 07/21/18 1143 BP: 139/80 Pulse: 75 Resp: 16 Temp: 36.5 ??C (97.7 ??F) SpO2: 100% Body mass index is 46.97 kg/(m^2). Height: 167.6 cm (5' 6) Weight: 132 kg (291 lb) Airway Assessment: Mallampati: I TM distance: >3 FB Neck ROM: full Cardiovascular Assessment: Rhythm: regular Rate: normal Pulmonary Assessment: breath sounds clear to auscultation Dental Assessment: Comment: Broken molars Misc Assessment: Patient is wearing No contact(s). IV access: Peripheral line Anesthesia Plan: ASA 3 general, with a(n) inhalational and intravenous induction Pt seen chart reviewed laposky- sourav PMHx; +CAD S/p stents... makred weight loss Currently denies -SOB -CP, good exercise tolerance -Liver/kidney disease -URI -GERD NPO today food, clears x several hours Anes Hx - for complications R & B reviewed Plan Gen ET Region - Other Informed Consent: Anesthetic plan and risks discussed with patient and spouse. Use of blood products discussed with patient who consented to blood products. Plan discussed with TOY ASSEMBLER. PAT Staff Note documented in this encounter Plan of Treatment Upcoming Encounters Date Type Department Care Team (Latest Contact Info) Description 06/07/2024 2:00 PM EDT Office [place] [phone] Joan Castro MD [facility] [place] [address] 06/11/2024 1:03 PM EDT Hospital Encounter [place] [phone] Rachel Carrasco MD [facility] [place] [address] 06/11/2024 1:03 PM EDT - 06/11/2024 1:58 PM EDT Surgery [place] [phone] Rachel Carrasco MD [facility] [address] CYSTO, REMOVAL OF STENT, FOREIGN BODY OR CALCULUS, SIMPLE (WRVU 2.81) 06/23/2024 10:00 AM EDT Office Visit Cardiology at [address] [place] [phone] Mo Horne MD [facility] [place] [address] Scheduled Procedures Name Priority Associated Diagnoses Date/Ti me CYSTO, REMOVAL OF STENT, FOR EIGN BODY OR CALCULUS, SIMPLE (WRVU 2.81) NEPHROLITHIASIS 06/11/2024 1:03 PM EDT documented as of this encounter Visit Diagnoses Not on filedocumented in this encounter Administered Medications Inactive Administered Medications - up to 3 most recent administrations Medication Order MAR Action Action Date Dose Rate Site ceFAZolin (ANCEF) 3g in dextrose 5% 100 mL 3 g, Intravenous, EVERY 8 HOURS, First dose on e 07/21/18 at 1215, Until Discontinued, Administer over 30 Minutes, Indication for (Active or Suspected): Prophylaxis Given 07/21/2018 12:31 PM EDT 3 g dexamethasone (DECADRON) injection PRN, Starting on 07/21/18 at 1228, Until 07/21/18 at 1415, Anesthesia Intra-op, Routine Given 07/21/2018 12:28 PM EDT 8 mg dexmedetomidine (PRECEDEX) injection PRN, Starting on e 07/21/18 at 1231, Until Tu07/21/18 at 1415, Anesthesia Intra-op, Routine Given 07/21/2018 12:56 PM EDT 8 mcg Given 07/21/2018 12:31 PM EDT 12 mcg ePHEDrine 5 mg/mL multi-dose injection PRN, Starting on e 07/21/18 at 1243, Until 07/21/18 at 1415, Anesthesia Intra-op, Routine Given 07/21/2018 1:37 PM EDT 5 mg Given 07/21/2018 12:43 PM EDT 5 mg fentaNYL 50 mcg/mL multi-dose injection PRN, Starting on e 07/21/18 at 1228, Until Tu07/21/18 at 1415, Pain, Anesthesia Intra-op, Routine Given 07/21/2018 1:06 PM EDT 50 mcg Given 07/21/2018 12:28 PM EDT 50 mcg glycopyrrolate (ROBINUL) multi-dose injection PRN, Starting on 07/21/18 at 1353, Until Tu07/21/18 at 1415, Anesthesia Intra-op, Routine Given 07/21/2018 1:57 PM EDT 0.2 mg Given 07/21/2018 1:53 PM EDT 0.6 mg lidocaine (PF) (XYLOCAINE) 100 mg/5 mL (2 %) injection PRN, Starting on Fri07/21/18 at 1228, Until Fri07/21/18 at 1415, Anesthesia Intra-op, Routine Given 07/21/2018 12:28 PM EDT 100 mg midazolam (PF) (VERSED) 1 mg/mL multi-dose injection PRN, Starting on Fri07/21/18 at 1220, Until Fri07/21/18 at 1415, Sleep, Anesthesia Intra-op, Routine Given 07/21/2018 12:20 PM EDT 2 mg neostigmine (BLOXIVERZ) injection PRN, Starting on Fri07/21/18 at 1353, Until Fri07/21/18 at 1415, Anesthesia Intra-op, Routine Given 07/21/2018 1:53 PM EDT 4 mg ondansetron (ZOFRAN) injection PRN, Starting on Fri07/21/18 at 1342, Until Fri07/21/18 at 1415, Nausea, Anesthesia Intra-op, Routine Given 07/21/2018 1:42 PM EDT 4 mg propofol (DIPRIVAN) 10 mg/mL bolus injection (Anesthesia) PRN, Starting on Fri07/21/18 at 1228, Until Fri07/21/18 at 1415, Anesthesia Intra-op Given 07/21/2018 12:28 PM EDT 200 mg propofol (DIPRIVAN) infusion CONTINUOUS PRN, Starting on Fri07/21/18 at 1231, Until Fri07/21/18 at 1415, Anesthesia Intra-op, Routine New Bag 07/21/2018 12:31 PM EDT 30 mcg/kg/min 23.8 mL/hr rocuronium (ZEMURON) multi-dose injection PRN, Starting on Fri07/21/18 at 1228, Until Fri07/21/18 at 1415, Anesthesia Intra-op, Routine Given 07/21/2018 12:41 PM EDT 10 mg Given 07/21/2018 12:28 PM EDT 60 mg documented in this encounter Care Teams Axminster Rug Setter Relationship Specialty Start Date End Date Bin Bowman MD [address] [place] [phone] PCP - General General Internal Medicine 04/21/1707/11 documented as of this encounter
--- OUTSIDE RECORDS SUMMARY | 2024-06-04 20:47 | XMS_ITS | Encounter Summary ---
Author Organization [facility] [place] [address] Care Team Providers Care Vehicle And Equipment Cleaner Name Role Phone Bin Bowman MD Primary Care Provider [phone] Reason for Visit * Reason Onset Date Comments Medication Refill 05/26/2020 Encounter Details Date Type Department Care Team (Late st Contact Info) Description 05/26/2020 Refill Cardiology at [address] [phone] Jeremie Patton MD [facility] [place] [address] Medication Refill Social History Tobacco Use Types [...] 2:00 PM EDT Office [place] [phone] Joan Castro MD [facility] GASTROENTEROLOGY [place], [place] [phone] 06/11/2024 1:03 PM EDT Hospital Encounter [place] [phone] Rachel Carrasco MD [facility] [place] [address] 06/11/2024 1:03 PM EDT - 06/11/2024 1:58 PM EDT Surgery [place] [phone] Rachel Carrasco MD [facility] [place] [address] CYSTO, REMOVAL OF STENT, FOREIGN BODY OR CALCULUS, SIMPLE (WRVU 2.81) 06/23/2024 10:00 AM EDT Office Visit Cardiology at [address] [phone] Mo Horne MD [facility] [place] [address] Scheduled Procedures Name Priority Associated Diagnoses Date/Ti me CYSTO, REMOVAL OF STENT, FOR EIGN BODY OR CALCULUS, SIMPLE (WRVU 2.81) NEPHROLITHIASIS 06/11/2024 1:03 PM EDT documented as of this encounter Visit Diagnoses Diagnosis Coronary disease Essential hypertension Unspecified essential hypertension Heart palpitations Palpitations documented in this encounter Care Teams Vehicle And Equipment Cleaner Relationship Specialty Start Date End Date Bin Bowman MD [address] [place] [id number] PCP - General General Internal Medicine 04/21/1707/11 documented as of this encounter
--- OUTSIDE RECORDS SUMMARY | 2024-06-04 20:47 | XMS_ITS | Encounter Summary ---
Author Organization [facility] [place] [address] Care Team Providers Care Biofuels Plant Operations Engineer Name Role Phone Bin Bowman MD Primary Care Provider Encounter Details Date Type Department Care Team (Late st Contact Info) Description 06/05/2018 External [place] [address] Rachana Silver [facility] [place] [address] Social History Tobacco Use Types Packs/Day Years [...] 2:00 PM EDT Office Visit [place] [phone] Joan Castro MD [facility] [place] [address] 06/11/2024 1:03 PM EDT Hospital Encounter [place] [address] Rachel Carrasco MD [facility] [place] [address] 06/11/2024 1:03 PM EDT - 06/11/2024 1:58 PM EDT Surgery [place] [address] Rachel Carrasco MD [facility] [place] [address] CYSTO, REMOVAL OF STENT, FOREIGN BODY OR CALCULUS, SIMPLE (WRVU 2.81) 06/23/2024 10:00 AM EDT Office Visit Cardiology at [address] [phone] Mo Horne MD [facility] [place] [address] Scheduled Procedures Name Priority Associated Diagnoses Date/Ti me CYSTO, REMOVAL OF STENT, FOR EIGN BODY OR CALCULUS, SIMPLE (WRVU 2.81) NEPHROLITHIASIS 06/11/2024 1:03 PM EDT documented as of this encounter Procedures Procedure Name Priority Date/Time Associated Diagnosis Comments ECG SCAN Routine 06/05/2018 documented in this encounter Results * Scan Doc: ECG (06/05/2018) Rachana Silver DO MEDIA MGR SCAN EX T ORDR/RSLT documented in this encounter Visit Diagnoses Not on filedocumented in this encounter Care Teams Biofuels Plant Operations Engineer Relationship Specialty Start Date End Date Bin Bowman MD [address] [place] [id number] PCP - General General Internal Medicine 04/21/1707/11 documented as of this encounter
--- OUTSIDE RECORDS SUMMARY | 2024-06-04 20:47 | XMS_ITS | Encounter Summary ---
Author Organization [facility] Address [facility] [place] [address] Care Team Providers Care Occupational Medicine Physician Name Role Phone Bin Bowman MD Primary Care Provider [phone] Reason for Visit * Auth/Cert Specialty Diagnoses / Procedures Referred By Zeyad mishra Referred To Contact Diagnoses BILIARY COLIC Procedures PRO LAP, CHOLECYSTECTOMY/GRAPH PRO UNLISTED LAPAROSCOPIC PX LVR LAPAROSCOPIC CHOLECYSTECTOMY WITH CHOLANGIOGRAM (WRVU 11.47) LAPAROSCOPIC LIVER BIOPSY (WRVU 16.52) Referral ID Status Reason Start Date Expiration Date Visits Re quested Visits Authorized [id number] 1 1 Encounter Details Date Type Department Care Team (Latest Contact Info) Description 07/21/2018 11:16 AM EDT - 07/21/2018 4:12 PM EDT Hospital Encounter [place] [address] Colt Hewitt MD [facility] [place] [address] Discharge Disposition: Home Social History Tobacco Use [...] Sign Reading Time Taken Comments Blood Pressure 117/70 07/21/2018 3:30 PM EDT Pulse 75 07/21/2018 11:43 AM EDT Temperature 36.5 ??C (97.7 ??F) 07/21/2018 2:15 PM ED T Respiratory Rate 16 07/21/2018 3:30 PM EDT Oxygen Saturation 96% 07/21/2018 3:30 PM EDT Inhaled Oxygen Concentration - - Weight 132 kg (291 lb) 07/21/2018 11:43 AM EDT Height 167.6 cm (5' 6) 07/21/2018 11:43 AM EDT Body Mass Index 46.97 07/21/2018 11:43 AM EDT documented in this encounter Discharge Instructions * Discharge Instructions* Cintia Vieira RN - 07/21/2018 2:25 PM EDT POST ANESTHESIA INSTRUCTIONS Go home, rest, use caution on stairs. Change positions slowly. Do not smoke if you are alone. Diet light to regular as tolerated today. If nausea occurs start with clear liquids and progress slowly. No driving, operating machinery, alcoholic beverages and no important decisions for 24 hours. Monitor IV site for signs and symptoms of infection: increasing redness, swelling, foul drainage, if occurs contact M.D. Patients who have had endotrachial tubes (this tube, used by anesthesia department, is passed down your throat after you are asleep, to ensure safe air passage during your operation). A sore throat is normal due to the tube. Cold liquids or soothing lozenges will help ease the discomfort. The generalized muscle aches are due to the medication given to you just before the tube is inserted. As the medication wears off, you may develop muscle soreness, which usually goes away in 12-24 hours. * Patient Instructions* Jesse Pollack MD - 07/21/2018 2:27 PM EDT Minimally Invasive Surgery Discharge Instructions If you have any questions or concerns, please call [phone] before 5pm Friday through Friday; or [phone] after 5pm and on weekends. Diet: regular Activity: no heavy lifting for 4 weeks. Ok to return to work in one week. Ok to shower in 24 hrs Driving: Do not drive while taking narcotic pain medications. If you are no longer taking pain medication, it should safe to drive when it no longer hurts getting in and out of the vehicle, and when you can quickly move your leg from the gas to the brake pedal without it causing pain. Pain Medications: Take only as needed. -Take the medication exactly as it is prescribed and make sure to read all instructions that come with the medication. -Over the next couple of days you should be requiring less of this medication to control you pain, so that eventually you will not need any at all. You do not have to take all of the medication that was prescribed, you may have some left over. -Use ibuprofen (motrin, advil) and/or tylenol prior to using this medication. If your pain is stillnot controlled, you may then use this medication. -Taking more than the prescribed amount of medication or using with alcohol or other drugs can cause you to stop breathing resulting in coma, brain damage or . -Opioids can slow reaction time, cause drowsiness or cloud judgement. No driving for 8 hours after any dose of opioid pain medication if one was prescribed for you. -Using this drug may cause addiction. While addiction is more common in people with a personal or family history of addiction, it can occur in anyone. -Opioids are at risk of being diverted by anyone with access to your home. Opioids should be storedin a safe and secure place, such as a locked cabinet or safe. -Unused opioids should be disposed of appropriately. They may be returned to a take-back location, or mixed with a small amount of water and poured over an undesirable waste such as used coffee grounds or cat litter. -Please note that most pain medications can cause constipation. You may use a stool softener such as Miralax to prevent this. Other Means for Pain Relief: Other than medications. ?? Learn deep breathing exercises or meditation to help you relax ?? Reduce stress ?? Your body produces natural endorphins from exercise which can help reduce pain. Even walking is considered exercise. Talk with your provider/surgical team about what exercises are appropriate for you to perform. ?? You may use a heating pad or apply ice to the painful area unless specifically discouraged by the surgical team. ?? Find ways to distract yourself from the pain. Other Medication Changes: Call your Dr: Please call if you notice worsening redness or drainage from incision(s) lasting longer than 5 days after your surgery, any foul-smelling drainage from the incision, pain not controlledby pain medications, persistent nausea and vomiting, or for any fevers greater than 101.3 F. Showering: in 48 hrs Wound Care: Once showering, wash your incision(s) daily with soap and rinse well, pat dry. Assess for any signs of infection such as increased redness, pain, warmth or drainage. The Steri-Strips willfall off in 7-10 days. The brown bandaids can be removed at any time. Follow-up: Future Appointments Date Time Provider Department Center 08/19/2018 11:40 AM Colt Hewitt MD [facility] documented in this encounter Medications at Time of Discharge Medication Sig Dispensed Refills Start Date End Date acetaminophen (TYLENOL) 325 mg Tablet Take 2 [...] 3 times daily as needed for Anxiety. meclizine (ANTIVERT) 12.5 mg Tablet TAKE ONE TABLET BY MOUTH EVERY 8 HOURS FOR DIZZYNESS 1 04/28/2018 03/25/2019 ondansetron (ZOFRAN-ODT) 4 mg Tablet, Rapid Dissolve Take 1 tablet by mouth every 8 hours as needed for Nausea. 20 tablet 07/21/2018 07/29/2019 clopidogrel (PLAVIX) 75 mg Tablet Take 1 tablet by mouth daily. Start 48 hrs after surgery 90 tablet 3 07/21/2018 03/25/2019 oxyCODONE (ROXICODONE) 5 mg Tablet Take 1 tablet by mouth every 4 hours as needed for Pain. 10 tablet 07/21/2018 03/25/2019 MARIJUANA ORAL Take by mouth. 05/15/2020 ondansetron (ZOFRAN-ODT) 4 mg Tablet, Rapid Dissolve Take 1 tablet by mouth every 8 hours as needed for Nausea. 20 tablet 11 01/20/2018 07/29/2019 esomeprazole (NEXIUM) 40 mg Capsule, Delayed Release(E.C.) Take 1 capsule by mouth 2 times daily. 60 capsule 11 01/20/2018 08/03/2018 atorvastatin (LIPITOR) 80 mg Tablet Take 1 tablet by mouth every evening. 90 tablet 3 07/16/2017 12/19/2020 lisinopril (PRINIVIL;ZESTRIL) 2.5 mg Tablet Take 1 tablet by mouth daily. 90 tablet 3 07/16/2017 05/26/2020 meTOPROLOL succinate (TOPROL-XL) 50 mg Tablet Sustained Release 24 hr Take 1 tablet by mouth daily. 30 tablet 12 07/16/2017 05/26/2020 lamoTRIgine (LAMICTAL) 200 mg Tablet Take 1 tablet by mouth daily. 30 tablet 3 07/16/2017 01/13/2021 ACETYLCYSTEINE (NAC ORAL) Take by mouth. 03/25/2019 documented as of this encounter H&P Notes * Jesse Pollack MD - 07/21/2018 11:50 AM EDT HPI: Rolo presents to hospital the for the planned procedure of lap sourav with IOC. Denies changes in health. Denies any new symptoms which have developed since the previous encounter. ROS: No complaints of nausea vomiting fevers chills chest pain shortness of breath rash neurological side effect FH: No family h/o of bleeding or anesthesia problems Surgical Hx: Past Surgical History: Procedure Laterality Date ??? PRO UPPER GI ENDOSCOPY, BIOPSY N/A 12/29/2017 UPPER GASTROINTESTINAL ENDOSCOPY,WITH BIOPSY SINGLE OR MULTIPLE (WRVU 2.49) performed by Yusuf Tucker MD at [facility] ENDOSCOPY ??? PRO UPPER GI ENDOSCOPY, DIAGNOSTIC N/A 12/29/2017 EGD, UPPER GI ENDOSCOPY performed by Yusuf Tucker MD at [facility] ENDOSCOPY SH: Non smoker Objective: Most Recent Vitals: 07/21/18 1143 BP: 139/80 Pulse: 75 Resp: 16 Temp: 36.5 ??C (97.7 ??F) SpO2: 100% GEN: NAD , obese HEENT: trachea midline, no scleral icterus PULM: normal respiratory effort CARD: appears warm and well perfused ABD: soft, non tender non distended SKIN: no rash, no diaphoresis MSK: no gross deformities NEURO: GCS 15 PSYCH: normal affect and mood A/p: Rolo presents to hospital for lap sourav with IOC. Consent signed, risk and benefits discussed, especially the risk of conversion to open given his large body habitus. Consent signed and questions answered. Pre op needs ancef and lovenox Jesse Pollack MD documented in this encounter Miscellaneous Notes * Op Note - Colt Hewitt MD - 07/21/2018 4:12 PM EDT [facility] [place] Patient Name: Rolo Aguilar : [id number] MR#: [id number] Case Date: 07/21/2018 Surgeon: Surgeon(s) and Role: * Colt Hewitt MD - Primary * Guerline Traore MD - Resident-Technology Coach * Jesse Pollack MD - Fellow Preoperative diagnosis: BILIARY COLIC Postoperative diagnosis: BILIARY COLIC Procedure(s) (LRB): LAPAROSCOPIC CHOLECYSTECTOMY WITH CHOLANGIOGRAM (WRVU 11.47) (N/A) LAPAROSCOPIC LIVER BIOPSY (WRVU 16.52) (N/A) Findings: Mildly inflamed gallbladder, holangiogram showed no filling defects in the bile system and good flow of dye into the duodenum with normal bile duct anatomy. Anesthesia: General Estimated Blood Loss: * No values recorded between 07/21/2018 12:52 PM and 07/21/2018 1:59 PM * Specimens removed during surgery: Order Name Source Comment Collection Info Order Time SPECIMEN TO PATHOLOGY OR 26 BILIARY COLIC Gallbladder. excision No 07/21/2018 1:39 PM Number of tissue samples (in container) 1 Time specimen removed from patient: 1:39 PM Biospecimen to store? No SPECIMEN TO PATHOLOGY OR 26 BILIARY COLIC Liver biopsy biopsy No 07/21/2018 1:47 PM Number of tissue samples (in container) 1 Time specimen removed from patient: 1:47 PM Biospecimen to store? No Drains: none Surgical Closure: Primary Closure - skin incision is completely closed without any wires, madhavi, drains or other devices Disposition: awakened from anesthesia, extubated and taken to the recovery room in a stable condition, having suffered no apparent untoward event. Condition: doing well without problems (Please see the Surgical Encounter Summary for any Implant and Specimen details pertinent to this patient.) HPI/Surgical Indications: Indications For Procedure: The patient is a 47-year-old female with a history of biliary colic, confirmed to have sludge on ultrasound. Following review of her therapeutic options, he has elected to undergo a laparoscopic cholecystectomy. Procedure Description: Description of Procedure: The patient was brought to the Operating Room and placed in the supine position. Following uneventful induction of general endotracheal anesthesia, Venodyne stockings and anorogastric tube were placed. His abdomen was prepped and draped in the usual sterile fashion. Due to his obesity we elected to the use optical entry with 11 mm trocar and a 0?? scope to enter his abdomen handbreadth above the umbilicus. Through this, a 30 degree laparoscope was inserted. All remaining trocars were inserted under direct visualization. The next trocar was a 10 mm trocar placed in the midline just below the xiphoid. The next trocar was a 5 mm trocar placed in the anterior axillaryline just below the costal margin. Through this trocar, a grasping forceps was placed on the fundusof the gallbladder where it was then retracted cephalad. The last trocar was a 5 mm trocar placed in the midclavicular line below the costal margin. Using appropriate grasping instruments, the peritoneum overlying the triangle of Calot was incised. During the retraction due to the friability of thegallbladder wall there was some bile spillage. Clips were placed over the area of bile spillage which was high up on the gallbladder. The abdomen was copiously irrigated after this to reduce contamination. The cystic duct/gallbladder junction was identified, dissected circumferentially. A clip was then placed on the cystic duct/gallbladder junction and an intraoperative cholangiogram performed using fluoroscopy, which showed good flow of dye into the duodenum. There were no intra- or extrahepatic bile duct filling defects. The biliary anatomy appeared normal. Following completion of the cholangiogram, the catheter was removed. Two clips were then placed proximally on the cystic duct and theduct divided. The cystic artery was identified medially and was dissected circumferentially. Two clips were placed proximally and one distally, and the artery was divided. Remaining soft tissue attachments to the gallbladder to the liver bed were then divided using electrocautery. The gallbladder bed was inspected and excellent hemostasis was obtaine d. The gallbladder was extracted through the epigastric trocar site. The abdomen was again irrigated and excellent hemostasis was assured. All remaining trocars were then removed and the pneumoperitoneum was evacuated. All trocar sites were closed at the skin level using a running subcuticular closure of 4-0 Vicryl followed by Steri-Strips followed by Band-Aids. Overall, the patient tolerated theprocedure well and was taken to the Recovery Room postoperatively in stable condition. Infection Bundle used? N/A Jesse Pollack MD I performed this without a resident No Qualified resident available documented in this encounter Plan of Treatment Upcoming Encounters Date Type Department Care Team (Latest Contact Info) Description 06/07/2024 2:00 PM EDT Office [place] [address] Joan Castro MD [facility] [place] [place] [address] 06/11/2024 1:03 PM EDT Hospital Encounter [place] [phone] Rachel Carrasco MD [facility] [place] [address] 06/11/2024 1:03 PM EDT - 06/11/2024 1:58 PM EDT Surgery [place] [phone] Rachel Carrasco MD [facility] [place] [address] CYSTO, REMOVAL OF STENT, FOREIGN BODY OR CALCULUS, SIMPLE (WRVU 2.81) 06/23/2024 10:00 AM EDT Office Visit Cardiology at [address] [place] [address] Mo Horne MD [facility] [place] [address] Scheduled Procedures Name Priority Associated Diagnoses Date/Ti me CYSTO, REMOVAL OF STENT, FOR EIGN BODY OR CALCULUS, SIMPLE (WRVU 2.81) NEPHROLITHIASIS 06/11/2024 1:03 PM EDT documented as of this encounter Procedures Procedure Name Priority Date/Time Associated Diagnosis Comments SPECIMEN TO PATHOLOGY Routine 07/21/2018 1:47 PM EDT SURGICAL PATHOLOGY REPORT Routine 07/21/2018 1:39 PM EDT SPECIMEN TO PATHOLOGY Routine 07/21/2018 1:39 PM EDT XR FLUORO NO RAD <1HR - OR USE Routine 07/21/2018 1:30 PM EDT LAPAROSCOPIC LIVER BIOPSY (WRVU 16.52) 07/21/2018 12:23 PM EDT BILIARY COLIC LAPAROSCOPIC CHOLECYSTECTOMY WITH CHOLANGIOGRAM (WRVU 11.47) 07/21/2018 12:23 PM EDT BILIARY COLIC documented in this encounter Results * Specimen to Pathology (07/21/2018 1:47 PM EDT) AP Specimen 07/21/2018 1:47 PM EDT 07/21/2018 2:20 PM EDT Narrative [facility] - 07/21/2018 2:20 PM EDT Specimen requisition ordered. ??Separate Pathology report to follow Resulting Agency Comment Spec In Lab Colt Hewitt MD PATHOLOGY/CYTOLOGY ORDERABLES [facility] [address] [place] [address] * Surgical Pathology Report (07/21/2018 1:39 PM EDT) FINAL DIAGNOSIS (AP) [id number] ? Location: [facility]; [facility]; A The signing pathologist has (i) examined the relevant preparation(s) for the specimen(s) and (ii) rendered or confirmed the diagnosis(es). . ?Surgical Pathology DIAGNOSIS A - Liver, wedge ??biopsy: - Superficial liver biopsy showing bridging fibrosis. Cannot rule out cirrhosis. There is no evidence of inflammation or steatosis. For more definitive diagnosis core biopsy should be considered. Iron stain is negative. Trichrome stain was evaluated for final diagnosis. B - Gallbladder: - ??Cholelithiasis. Electronically signed by: ??Tyson Durbin MD Verified: ??07/24/2018 ?Pathologist Performed at: ??-[facility] [place], [place], [place] CLINICAL INFORMATION Specimen Submitted: A - Liver biopsy B - Gallbladder Clinical History and Diagnosis: Biliary colic SPECIMEN PROCESSING A - ??Labeled/Fixative : Liver biopsy, fresh. Quantity/Size: Single, 1.4 x 0.7 x 0.7 cm. Tissue Description: Wedge of rubbery brown tissue. Sections/Processin g: Entirely submitted. (T1) B - ??Labeled/Fixative : Gallbladder, fresh. Quantity/Size: Single, 10.1 x 4.0 x 3.0 cm. Specimen Description: Cholecystectomy with 0.8 cm full-thickness defect on serosal side. External surface: Smooth purple serosal surface with defect as above. Lumen contents: Watery green bile. Gallstones: Numerous black, firm, multifaceted choleliths ranging in size from 0.2 cm-0.5 cm. Mucosa: Velvety green mucosa with no apparent lesions. Wall: Average wall thickness 0.2 cm. Duct: Patent, 0.3 cm diameter. Ink Designation: Adventitial margin inked black. Sections/Processin g: Cystic duct margin and sales representative canvas products gallbladder body sections submitted. (R1) ??rm 07/24/2018 4:34 PM EDT [facility] 07/21/2018 1:39 PM EDT Colt Hewitt MD PATHOLOGY/CYTOLOGY ORDERABLES Performing Organization Address City/[facility]/ZIP Co de Phone Number [facility] [place] [address] * Specimen to Pathology (07/21/2018 1:39 PM EDT) AP Specimen 07/21/2018 1:39 PM EDT 07/21/2018 2:20 PM EDT Narrative [facility] - 07/21/2018 2:20 PM EDT Specimen requisition ordered. ??Separate Pathology report to follow Resulting Agency Comment Spec In Lab Colt Hewitt MD PATHOLOGY/CYTOLOGY ORDERABLES Performing Organization Address [place]/[facility] Co de Phone Number [facility] [place] [address] * XR Fluoro No Rad <1Hr - OR Use (07/21/2018 1:30 PM EDT) Narrative RAD - 07/21/2018 1:42 PM EDT This order does not need a radiologist interpretation. ?? Colt Hewitt MD IMG FLUORO ORDERABL ES Performing Organization Address [place]/[facility] Co de Phone Number [place], [place] documented in this encounter Visit Diagnoses Not on filedocumented in this encounter Administered Medications Inactive Administered Medications - up to 3 most recent administrations Medication Order MAR Action Action Date Dose Rate Site acetaminophen (TYLENOL) tablet 650 mg 650 mg, Oral, EVERY 6 HOURS PRN, Starting on Fri07/21/18 at 1429, Until Fri07/21/18 at 1819, Pain, Maximum dose of acetaminophen is 4000 mg from all sources in 24 hours., Routine Given 07/21/2018 2:38 PM EDT 650 mg ceFAZolin (ANCEF) 3g in dextrose 5% 100 mL 3 g, Intravenous, EVERY 8 HOURS, First dose on Fri07/21/18 at 1215, Until Discontinued, Administer over 30 Minutes, Indication for (Active or Suspected): Prophylaxis Given 07/21/2018 12:31 PM EDT 3 g enoxaparin (LOVENOX) injection 40 mg 40 mg, Subcutaneous, ONCE, 1 dose, On Fri07/21/18 at 1215, Routine Given 07/21/2018 12:15 PM EDT 40 mg Right Lower Quadrant HYDROmorphone (DILAUDID) injection 0.4-0.6 mg 0.4-0.6 mg, Intravenous, EVERY 5 MIN PRN, Starting on Fri07/21/18 at 1419, Until Fri07/21/18 at 1541, Pain, Give 0.4 mg every 5 minutes PRN for mild to moderate pain (1-5) Give 0.6 mg every 5 minutes PRN for moderate to severe pain (6-10). Hold for respiratory rate less than 10 per minute. Maximum dose 4 mg over one hour. If multiple pain medications are ordered, start with hydromorphone or morphine and use fentanyl for breakthrough pain., PACU Recovery, Routine Given 07/21/2018 2:56 PM EDT 0.4 mg Given 07/21/2018 2:48 PM EDT 0.6 mg Given 07/21/2018 2:30 PM EDT 0.6 mg lactated Ringers infusion 1,000 mL 1,000 mL, at 100 mL/hr, Intravenous, CONTINUOUS, Starting on Fri07/21/18 at 1200, Until Fri07/21/18 at 1541, Day of Surgery (Day of Procedure) New Bag 07/21/2018 12:00 PM EDT 1,000 mLs 100 mL/hr ondansetron (ZOFRAN-ODT) oral disintegrating tablet 4 mg 4 mg, Oral, EVERY 8 HOURS PRN, Starting on Fri07/21/18 at 1429, Until Fri07/21/18 at 1819, Nausea, Routine oxyCODONE (ROXICODONE) immediate release tablet 5 mg 5 mg, Oral, ONCE, 1 dose, On Fri07/21/18 at 1445, Routine Given 07/21/2018 2:45 PM EDT 5 mg documented in this encounter Active and Recently Administered Medications Times are shown in EDT. Scheduled Medication Order 07/19/2018 07/20/2018 07/21/2018 ceFAZolin (ANCEF) 3g in dextrose 5% 100 mL 3 g, Intravenous, EVERY 8 HOURS, First dose on Fri07/21/18 at 1215, Until Discontinued, Administer over 30 Minutes, Indication for (Active or Suspected): Prophylaxis 1215 (Due)1231 (Give n - Provider: Kim Osorio CRNA) enoxaparin (LOVENOX) injection 40 mg (COMPLETED) 40 mg, Subcutaneous, ONCE, 1 dose, On Fri07/21/18 at 1215, Routine 1215 (Given - Provid er: Rosalinda Nichols RN - Comment: abdomen) oxyCODONE (ROXICODONE) immediate release tablet 5 mg (COMPLETED) 5 mg, Oral, ONCE, 1 dose, On Fri07/21/18 at 1445, Routine 1445 (Given - Provid er: Cintia Veiira RN) Continuous Medication Order 07/19/2018 07/20/2018 07/21/2018 lactated Ringers infusion 1,000 mL (CANCELED) 1,000 mL, at 100 mL/hr, Intravenous, CONTINUOUS, Starting on Fri07/21/18 at 1200, Until Fri07/21/18 at 1541, Day of Surgery (Day of Procedure) 1200 (New Bag - Prov ider: Elizabeth Morales RN)1416 (Stopped - Provider: Kim Osorio CRNA) PRN Medication Order 07/19/2018 07/20/2018 07/21/2018 acetaminophen (TYLENOL) tablet 650 mg 650 mg, Oral, EVERY 6 HOURS PRN, Starting on Fri07/21/18 at 1429, Until Fri07/21/18 at 1819, Pain, Maximum dose of acetaminophen is 4000 mg from all sources in 24 hours., Routine 1438 (Given - Provid er: Cintia Vieira RN) BUpivacaine (PF) (MARCAINE) 0.25 % (2.5 mg/mL) injection (CANCELED) ONCE PRN, Starting on Fri07/21/18 at 1255, Until Fri07/21/18 at 1819, Intra-Operative (Intra-Procedure), Routine 1255 (Given - Provid er: Colt Hewitt MD) HYDROmorphone (DILAUDID) injection 0.4-0.6 mg (CANCELED) 0.4-0.6 mg, Intravenous, EVERY 5 MIN PRN, Starting on Fri07/21/18 at 1419, Until Fri07/21/18 at 1541, Pain, Give 0.4 mg every 5 minutes PRN for mild to moderate pain (1-5) Give 0.6 mg every 5 minutes PRN for moderate to severe pain (6-10). Hold for respiratory rate less than 10 per minute. Maximum dose 4 mg over one hour. If multiple pain medications are ordered, start with hydromorphone or morphine and use fentanyl for breakthrough pain., PACU Recovery, Routine 1424 (Given - Provid er: Cintia Vieira RN)1430 (Given - Provider: Cintia Vieira, RN)1448 (Given - Provider: Cintia Vieira RN)1456 (Given - Provider: Cintia Vieira RN) iohexol (OMNIPAQUE) 300 mg/mL solution (CANCELED) ONCE PRN, Starting on Fri07/21/18 at 1320, Until Fri07/21/18 at 1819, Intra-Operative (Intra-Procedure), Routine 1320 (Given - Provid er: Colt Hewitt MD) ondansetron (ZOFRAN-ODT) oral disintegrating tablet 4 mg 4 mg, Oral, EVERY 8 HOURS PRN, Starting on Fri07/21/18 at 1429, Until Fri07/21/18 at 1819, Nausea, Routine documented in this encounter Care Teams Occupational Medicine Physician Relationship Specialty Start Date End Date Bin Bowman MD [address] [place] [id number] PCP - General General Internal Medicine 04/21/1707/11 documented as of this encounter
--- OUTSIDE RECORDS SUMMARY | 2024-06-04 20:47 | XMS_ITS | Encounter Summary ---
Author Organization [facility] Address [facility] [place] [address] Care Team Providers Care Receiver Stocker Name Role Phone Bin Bowman MD Primary Care Provider Encounter Details Date Type Department Care Team (Late st Contact Info) Description 06/01/2020 Orders Only Cardiology at [address] [phone] Fadi Escobar MD [facility] [place] [address] Heart palpitations Social History Tobacco Use Types Packs/Day Years [...] 2:00 PM EDT Office [place] [phone] Joan Castro MD [facility] [place] [address] 06/11/2024 1:03 PM EDT Hospital Encounter [place] [address] Rachel Carrasco MD [facility] [place] [address] 06/11/2024 1:03 PM EDT - 06/11/2024 1:58 PM EDT Surgery [place] [phone] Rachel Carrasco MD [facility] [place] [address] CYSTO, REMOVAL OF STENT, FOREIGN BODY OR CALCULUS, SIMPLE (WRVU 2.81) 06/23/2024 10:00 AM EDT Office Visit Cardiology at [address] [address] Mo Horne MD [facility] [place] [address] Pending Results Name Type Priority Associated Diagnoses Date /Time Holter Monitor 48hr Cardiac Services Routine Heart palpitations 06/05/2020 10:44 AM EDT Scheduled Orders Name Type Priority Associated Diagnoses Orde r Schedule Holter Monitor 48hr Cardiac Services Routine Heart palpitations Expected: 06/01/2020 (Approximate), Expires: 06/01/2021 Scheduled Procedures Name Priority Associated Diagnoses Date/Ti me CYSTO, REMOVAL OF STENT, FOR EIGN BODY OR CALCULUS, SIMPLE (WRVU 2.81) NEPHROLITHIASIS 06/11/2024 1:03 PM EDT documented as of this encounter Visit Diagnoses Diagnosis Heart palpitations Palpitations documented in this encounter Care Teams Receiver Stocker Relationship Specialty Start Date End Date Bin Bowman MD [address] [place] [address] PCP - General General Internal Medicine 04/21/1707/11 documented as of this encounter
--- OUTSIDE RECORDS SUMMARY | 2024-06-04 20:47 | XMS_ITS | Encounter Summary ---
Author Organization [facility] [place] [address] Care Team Providers Care Automotive Machinist Name Role Phone Bin Bowman MD Primary Care Provider [phone] Reason for Visit * Reason Onset Date Comments Follow-up 06/01/2020 Encounter Details Date Type Department Care Team (Late st Contact Info) Description 06/01/2020 Telephone Cardiology at [address] [phone] Fady Lord RN Follow-up Social History Tobacco Use Types [...] Telephone Encounter - Fady Lord RN - 06/01/2020 4:23 PM EDT Called pt re: zio patch. Approximate $400 out of pocket cost. She stated that they can not move forward d/t the cost. Dr. Escobar had approved for a 48 hour holter monitor if unable to continue with zio. This option was brought up and agreeable, transferred to scheduling to set up time for pt to come in to have holter placed. documented in this encounter Plan of Treatment Upcoming Encounters Date Type Department Care Team (Latest Contact Info) Description 06/07/2024 2:00 PM EDT Office [place] [phone] Joan Castro MD [facility] [place] [address] 06/11/2024 1:03 PM EDT Hospital Encounter [place] [address] Rachel Carrasco MD [facility] [place] [address] 06/11/2024 1:03 PM EDT - 06/11/2024 1:58 PM EDT Surgery Main Operating Room [place] [phone] Rachel Carrasco MD [facility] [place] [address] CYSTO, REMOVAL OF STENT, FOREIGN BODY OR CALCULUS, SIMPLE (WRVU 2.81) 06/23/2024 10:00 AM EDT Office Visit Cardiology at [address] [place] [address] Mo Horne MD [facility] [address] Scheduled Procedures Name Priority Associated Diagnoses Date/Ti me CYSTO, REMOVAL OF STENT, FOR EIGN BODY OR CALCULUS, SIMPLE (WRVU 2.81) NEPHROLITHIASIS 06/11/2024 1:03 PM EDT documented as of this encounter Visit Diagnoses Not on filedocumented in this encounter Care Teams Automotive Machinist Relationship Specialty Start Date End Date Bin Bowman MD [address] [place] [address] PCP - General General Internal Medicine 04/21/1707/11 documented as of this encounter
--- OUTSIDE RECORDS SUMMARY | 2024-06-04 20:47 | XMS_ITS | Encounter Summary ---
Author Organization [facility] Address [facility] [place] [address] Care Team Providers Care Work Order Detailer Name Role Phone Bin Bowman MD Primary Care Provider Encounter Details Date Type Department Care Team (Late st Contact Info) Description 06/22/2020 Orders Only Cardiology at [address] [phone] Fadi Escobar MD [facility] [place] [address] Heart palpitations Social History Tobacco Use Types [...] 2:00 PM EDT Office [place] [phone] Joan Castro MD [facility] [place] [address] 06/11/2024 1:03 PM EDT Hospital Encounter [place] [address] Rachel Carrasco MD [facility] [place] [address] 06/11/2024 1:03 PM EDT - 06/11/2024 1:58 PM EDT Surgery [place] [phone] Rachel Carrasco MD [facility] [place] [address] CYSTO, REMOVAL OF STENT, FOREIGN BODY OR CALCULUS, SIMPLE (WRVU 2.81) 06/23/2024 10:00 AM EDT Office Visit Cardiology at [address] [address] Mo Horne MD [facility] [place] [address] Scheduled Procedures Name Priority Associated Diagnoses Date/Ti me CYSTO, REMOVAL OF STENT, FOR EIGN BODY OR CALCULUS, SIMPLE (WRVU 2.81) NEPHROLITHIASIS 06/11/2024 1:03 PM EDT documented as of this encounter Visit Diagnoses Diagnosis Heart palpitations Palpitations documented in this encounter Care Teams Work Order Detailer Relationship Specialty Start Date End Date Bin Bowman MD [address] [place] [address] PCP - General General Internal Medicine 04/21/1707/11 documented as of this encounter
--- OUTSIDE RECORDS SUMMARY | 2024-06-04 20:47 | XMS_ITS | Encounter Summary ---
Author Organization [facility] [place] [address] Care Team Providers Care Spark Tester Name Role Phone Bin Bowman MD Primary Care Provider Encounter Details Date Type Department Care Team (Late st Contact Info) Description 06/22/2020 Telephone Cardiology at [address] [phone] Fady Lord RN Social History Tobacco Use [...] Telephone Encounter - Fady Lord RN - 06/22/2020 12:18 PM EDT Received TC from EKG Processing re: 48 hour holter monitor, only 6 hours of information was obtained. New order placed for another 48 hour holter monitor. EKG processing stated they would contact pt and have scheduling get in contact with pt to set up time for application. documented in this encounter Plan of Treatment Upcoming Encounters Date Type Department Care Team (Latest Contact Info) Description 06/07/2024 2:00 PM EDT Office Visit [place] [address] Joan Castro MD [facility] [place] [address] 06/11/2024 1:03 PM EDT Hospital Encounter [place] [phone] Rachel Carrasco MD [facility] [place] [address] 06/11/2024 1:03 PM EDT - 06/11/2024 1:58 PM EDT Surgery [place] [address] Rachel Carrasco MD [facility] [place] [address] CYSTO, REMOVAL OF STENT, FOREIGN BODY OR CALCULUS, SIMPLE (WRVU 2.81) 06/23/2024 10:00 AM EDT Office Visit Cardiology at [address] [phone] Mo Horne MD [facility] [place] [address] Scheduled Procedures Name Priority Associated Diagnoses Date/Ti me CYSTO, REMOVAL OF STENT, FOR EIGN BODY OR CALCULUS, SIMPLE (WRVU 2.81) NEPHROLITHIASIS 06/11/2024 1:03 PM EDT documented as of this encounter Visit Diagnoses Not on filedocumented in this encounter Care Teams Spark Tester Relationship Specialty Start Date End Date Bin Bowman MD [address] [place] [address] PCP - General General Internal Medicine 04/21/1707/11 documented as of this encounter
--- OUTSIDE RECORDS SUMMARY | 2024-06-04 20:47 | XMS_ITS | Encounter Summary ---
Author Organization [facility] [place] [address] Care Team Providers Care Glass Vial Filler Name Role Phone Bin Bowman MD Primary Care Provider Encounter Details Date Type Department Care Team (Late st Contact Info) Description 05/07/2020 External Results [place] [address] Social History Tobacco Use Types [...] 2:00 PM EDT Office [place] [address] Joan Castro MD [facility] [place] [address] 06/11/2024 1:03 PM EDT Hospital Encounter [place] [address] Rachel Carrasco MD [facility] [place] [address] 06/11/2024 1:03 PM EDT - 06/11/2024 1:58 PM EDT Surgery Main Operating Room [facility] [place] [address] Rachel Carrasco MD [facility] [place] [address] CYSTO, REMOVAL OF STENT, FOREIGN BODY OR CALCULUS, SIMPLE (WRVU 2.81) 06/23/2024 10:00 AM EDT Office Visit Cardiology at [address] [place] [address] Mo Horne MD [facility] [address] Scheduled Procedures Name Priority Associated Diagnoses Date/Ti me CYSTO, REMOVAL OF STENT, FOR EIGN BODY OR CALCULUS, SIMPLE (WRVU 2.81) NEPHROLITHIASIS 06/11/2024 1:03 PM EDT documented as of this encounter Procedures Procedure Name Priority Date/Time Associated Diagnosis Comments ECG SCAN Routine 05/07/2020 documented in this encounter Results * Scan Doc: ECG (05/07/2020) Historical Provider MD [facility] MGR SCAN EX T ORDR/RSLT documented in this encounter Visit Diagnoses Not on filedocumented in this encounter Care Teams Glass Vial Filler Relationship Specialty Start Date End Date Bin Bowman MD [address] [place] [address] PCP - General General Internal Medicine 04/21/1707/11 documented as of this encounter
--- OUTSIDE RECORDS SUMMARY | 2024-06-04 20:47 | XMS_ITS | Encounter Summary ---
Author Organization [facility] [place] [address] Care Team Providers Care Law Office Manager Name Role Phone Bin Bowman MD Primary Care Provider [phone] Reason for Visit * Reason Onset Date Comments Medication Refill 05/26/2020 Encounter Details Date Type Department Care Team (Late st Contact Info) Description 05/26/2020 Refill Cardiology at [address] [phone] Jeremie Patton MD [facility] [place] [address] Medication Refill Social History Tobacco [...] 2:00 PM EDT Office Visit [place] [phone] Joan Castro MD [facility] GASTROENTEROLOGY [place], [place] [phone] 06/11/2024 1:03 PM EDT Hospital Encounter [place] [phone] Rachel Carrasco MD [facility] [place] [address] 06/11/2024 1:03 PM EDT - 06/11/2024 1:58 PM EDT Surgery [place] [phone] Rachel Carrasco MD [facility] [place] [address] CYSTO, REMOVAL OF STENT, FOREIGN BODY OR CALCULUS, SIMPLE (WRVU 2.81) 06/23/2024 10:00 AM EDT Office Visit Cardiology at [address] [address] Mo Horne MD [facility] [place] [address] Scheduled Procedures Name Priority Associated Diagnoses Date/Ti me CYSTO, REMOVAL OF STENT, FOR EIGN BODY OR CALCULUS, SIMPLE (WRVU 2.81) NEPHROLITHIASIS 06/11/2024 1:03 PM EDT documented as of this encounter Visit Diagnoses Diagnosis Coronary disease Essential hypertension Unspecified essential hypertension documented in this encounter Care Teams Law Office Manager Relationship Specialty Start Date End Date Bin Bowman MD [address] [place] [address] PCP - General General Internal Medicine 04/21/1707/11 documented as of this encounter
--- OUTSIDE RECORDS SUMMARY | 2024-06-04 20:47 | XMS_ITS | Encounter Summary ---
Author Organization [facility] [place] [address] Care Team Providers Care Press Helper Name Role Phone Bin Bowman MD Primary Care Provider Reason for Visit * Reason Comments Medication Refill Encounter Details Date Type Department Care Team (Late st Contact Info) Description 07/03/2018 Refill [place] [phone] Hawk Coker DO [facility] DR HEMATOLOGY/[place] [address] Social History Tobacco Use Types Packs/Day Years [...] 2:00 PM EDT Office [place] [phone] Joan Castro MD [facility] [place] [address] 06/11/2024 1:03 PM EDT Hospital Encounter [place] [address] Rachel Carrasco MD [facility] [place] [place] [address] 06/11/2024 1:03 PM EDT - 06/11/2024 1:58 PM EDT Surgery [place] [phone] Rachel Carrasco MD [facility] [place] [address] CYSTO, REMOVAL OF STENT, FOREIGN BODY OR CALCULUS, SIMPLE (WRVU 2.81) 06/23/2024 10:00 AM EDT Office Visit Cardiology at [address] [place] [address] Mo Horne MD [facility] [place] [address] Scheduled Procedures Name Priority Associated Diagnoses Date/Ti me CYSTO, REMOVAL OF STENT, FOR EIGN BODY OR CALCULUS, SIMPLE (WRVU 2.81) NEPHROLITHIASIS 06/11/2024 1:03 PM EDT documented as of this encounter Visit Diagnoses Not on filedocumented in this encounter Care Teams Press Helper Relationship Specialty Start Date End Date Bin Bowman MD [address] [place] [address] PCP - General General Internal Medicine 04/21/1707/11 documented as of this encounter
--- OUTSIDE RECORDS SUMMARY | 2024-06-04 20:47 | XMS_ITS | Encounter Summary ---
Author Organization [facility] Address [facility] [place] [address] Care Team Providers Care Batch Unit Treater Name Role Phone Bin Bowman MD Primary Care Provider [phone] Reason for Visit * Reason Comments Follow-up Encounter Details Date Type Department Care Team (Late st Contact Info) Description 08/19/2018 11:40 AM EDT Office [place] [address] Colt Hewitt MD [facility] [place] [address] Postoperative visit Social History Tobacco Use Types Packs/Day Years [...] Sign Reading Time Taken Comments Blood Pressure - - Pulse - - Temperature - - Respiratory Rate - - Oxygen Saturation - - Inhaled Oxygen Concentration - - Weight 134.7 kg (296 lb 14.4 oz) 2017 12:13 PM EDT Height 167.6 cm (5' 6) 08/19/2018 12:1 3 PM EDT Body Mass Index 47.92 08/19/2018 12:13 PM EDT documented in this encounter Progress Notes * Colt Hewitt MD - 08/19/2018 11:40 AM EDT Patient is a 47-year-old gentleman who returns in follow-up status post a laparoscopic cholecystectomy from 07/21/2018. At the time of surgery his liver also appeared to have some fatty changes in it and we did a biopsy subsequent pathology on his gallbladder was consistent with cholelithiasis his liver biopsy was described as having bridging fibrosis cannot rule out cirrhosis and thought further characterization characterization would be requiring a core biopsy which we will not be pursuing at this point. On exam all trocar sites are healing well without any evidence erythema or herniation his abdomen is soft flat and nontender overall the nausea that he been experiencing preoperatively have resolved I be happy see him back on a as needed basis documented in this encounter Plan of Treatment Upcoming Encounters Date Type Department Care Team (Latest Contact Info) Description 06/07/2024 2:00 PM EDT Office Visit Gastroenterology at [place] [phone] Joan Castro MD [facility] [place] [address] 06/11/2024 1:03 PM EDT Hospital Encounter Main Operating Room [place] [phone] Rachel Carrasco MD [facility] [place] [address] 06/11/2024 1:03 PM EDT - 06/11/2024 1:58 PM EDT Surgery Main Operating Room [place] [phone] Rachel Carrasco MD [facility] [place] [address] CYSTO, REMOVAL OF STENT, FOREIGN BODY OR CALCULUS, SIMPLE (WRVU 2.81) 06/23/2024 10:00 AM EDT Office Visit Cardiology at [address] [place] [phone] Mo Horne MD [facility] [place] [address] Scheduled Procedures Name Priority Associated Diagnoses Date/Ti me CYSTO, REMOVAL OF STENT, FOR EIGN BODY OR CALCULUS, SIMPLE (WRVU 2.81) NEPHROLITHIASIS 06/11/2024 1:03 PM EDT documented as of this encounter Visit Diagnoses Diagnosis Postoperative visit documented in this encounter Care Teams Batch Unit Treater Relationship Specialty Start Date End Date Bin Bowman MD [address] [place] [address] PCP - General General Internal Medicine 04/21/1707/11 documented as of this encounter
--- OUTSIDE RECORDS SUMMARY | 2024-06-04 20:47 | XMS_ITS | Encounter Summary ---
Author Organization [facility] [place] [address] Care Team Providers Care Community Health Outreach Worker Name Role Phone Bin Bowman MD Primary Care Provider [phone] Encounter Details Date Type Department Care Team (Late st Contact Info) Description 05/19/2020 Telephone Cardiology at [address] [phone] Lennie Garcia, RN Social History Tobacco Use [...] Telephone Encounter - Lennie Garcia, RN - 05/19/2020 12:40 PM EDT TC to pt regarding Zio & insurance coverage Has [place] Medicaid but notified pt [employer] offers pt assistance program. Pt contacted [employer] who notified that Zio would be no cost to him. Spoke w/ [facility] who reports that 's billing portion may be roughly $400 out of pocket. Pt & will be calling [place] medicaid & the billing department next week to determine how they would like to move forward. Dr. Escobar OK'd 48 Hr Holter monitor if they choose to not move forward with Zio documented in this encounter Plan of Treatment Upcoming Encounters Date Type Department Care Team (Latest Contact Info) Description 06/07/2024 2:00 PM EDT Office Visit [place] [address] Joan Castro MD [facility] [place] [address] 06/11/2024 1:03 PM EDT Hospital Encounter [place] [phone] Rachel Carrasco MD [facility] [place] [address] 06/11/2024 1:03 PM EDT - 06/11/2024 1:58 PM EDT Surgery [place] [phone] Rachel Carrasco MD [facility] [place] [address] CYSTO, REMOVAL OF STENT, FOREIGN BODY OR CALCULUS, SIMPLE (WRVU 2.81) 06/23/2024 10:00 AM EDT Office Visit Cardiology at [address] [place] [address] Mo Horne MD [facility] [place] [address] Scheduled Procedures Name Priority Associated Diagnoses Date/Ti me CYSTO, REMOVAL OF STENT, FOR EIGN BODY OR CALCULUS, SIMPLE (WRVU 2.81) NEPHROLITHIASIS 06/11/2024 1:03 PM EDT documented as of this encounter Visit Diagnoses Not on filedocumented in this encounter Care Teams Community Health Outreach Worker Relationship Specialty Start Date End Date Bin Bowman MD [address] [place] [address] PCP - General General Internal Medicine 04/21/1707/11 documented as of this encounter
--- OUTSIDE RECORDS SUMMARY | 2024-06-04 20:47 | XMS_ITS | Encounter Summary ---
Author Organization Formerly [facility], [facility] Address [facility] [place] [address] Care Team Providers Care Executive Pilot Name Role Phone Bin Bowman MD Primary Care Provider Reason for Visit * Auth/Cert Specialty Diagnoses / Procedures Referred By Zeyad t Referred To Contact Diagnoses . Procedures ELECTROPHYSIOLOGY PROCEDURE Referral ID Status Reason Start Date Expiration Date Visits Re quested Visits Authorized [id number] 1 1 Encounter Details Date Type Department Care Team (Late st Contact Info) Description 07/10/2020 9:53 AM EDT Anesthesia Event [place] [address] Xander Galvez MD [facility] [place] [address] Emanuel Becerra MD [facility] [place] [address] Anesthesia Record Procedure Summary Procedure Name Responsible Anesthesiologist Anesthesia Start Time Anesthesia Stop Time ELECTROPHYSIOLOGY PROCEDURE Xander Galvez MD 07/10/20 0953 07/10/20 1651 Events Date Time Event Comment 07/10/2020 0808 0952 AN Verify 0953 Start 0953 An Start Data 1003 An Induction 1004 An Intubation 1015 Anesthesia Ready 1321 AN Defib 200j 1540 Break/Relief In I assumed ca re for Break Relief before which we: 1. Identified the patient 2. Identified the responsible provider(s) 3. Reviewed the pertinent medical history 4. Discussed the surgical plan and course 5. Reviewed intra-op anesthesia management and issues during anesthesia 6. Set expectations for the relief (and/or post-procedure) period 7. Allowed opportunity for questions and acknowledgement of understanding Selin Whiteside CRNA 1603 Break/Relief Out 1628 Procedure Stop 1634 Extubation/LMA Out 1635 an stop data 1651 Recovery or ICU Handoff Kacey ent care was transferred to the destination unit staff after review of the patient's medical history, current anesthetic/surgical status and plan, according to the Provider Handoff Checklist. 1651 Stop Meds Name Total fentaNYL 100 mcg IV Lidocaine 50 mg Propofol 400 mg Rocuronium 70 mg PHENYLephrine 80 mcg Ondansetron 4 mg Neostigmine 3 mg Glycopyrrolate 0.4 mg Succinylcholine 200 mg PHENYLephrine INF 4,350 mcg DOBUTamine INF 38.26 mg Lactated Ringers 1,250 mL Lactated Ringers 1,250 mL * Agents Name O2 Air N2O Sevoflurane (et) * Blood No blood administrations on file. Lines, Drains, and Airways Type Details Placement Removal NG/OG Tube 07/21/18; 1230; orogastric; 18 Fr; mouth; 07/10/20; 1627 07/21/18 1230 by Kim Osoiro CRNA 07/10/20 1627 by Autumn Dobson, RN Incision 07/21/18; 1252; abdo men; laparoscopic punctures (specify) (Multiple trocar sites. ); 07/10/20; 1627 07/21/18 1252 by Adriana Neil RN 07/10/20 1627 by Autumn Dobson, RN Arterial Line 07/10/20; radial art aiden, left; 20 gauge; Gandevia; Sterile Prep, Sterile Gloves; no longer indicated; 07/11/20; 1045 07/10/20 0000 by Autumn Dobson RN 07/11/20 1045 by Marilu Lopez LPN Incision 07/10/20; groin; LDA not present upon assessment; 02/15/21; 2211 07/10/20 0000 by Autumn Dobson, FLAVIA 02/15/21 2211 by Valentin North RN Incision 07/10/20; groin; LDA not present upon assessment; 02/15/21; 221007/10/20 0000 by Autumn Dobson RN 02/15/21 221 by Valentin North RN Incision 07/10/20; neck; LDA not present upon assessment; 02/15/21; 221107/10/20 0000 by Autumn Dobson RN 02/15/21 221 by Valentin North RN (RETIRED) Peripheral IV Line - Single Lumen 07/10/20; 0821; median cubital vein (antecubital fossa), left; [id number]-[id number]-ulmidv catheter system; 20 gauge; Rivas RN; distraction, intradermal injection, tolerated well; 0; 07/11/20; 1116 07/10/20 0821 by Kinga Hathaway RN 07/11/20 1116 by Kati Edmonds RN ETT Mask Ventilation: Ea sy (1); ETT Type: Oral; ETT Size: 8 mm; Mac Blade: 3; Notes: Asleep, Pre-O2, Stylette, Cricoid Pressure; Attempts: 1; Laryngoscopy Grade: 1; ETT Placement Verified By: Auscultation, Capnometry, Visual; Secured at Teeth: 22 cm; Inserted by: Yovanny; Removal Date: 07/10/20; Removal Time: 1634 07/10/20 1003 by Xander Hairston CRNA 07/10/20 1634 by Xander Hairston CRNA (RETIRED) Peripheral IV Line - Single Lumen 07/10/20; 1023; metacarpal vein (top of hand), left; zmki-wht-pfpraq catheter system; 18 gauge; Gandevia; no longer indicated; 07/11/20; 1043 07/10/20 1023 by Xander Hairston CRNA 07/11/20 1043 by Marilu Lopez LPN Urethral Catheter 07/10/20; 1045; Surg aiden longer than 2 hours; Physician order; indwelling single lumen catheter; latex; 14; inserted at this facility; 1; 10; 10; intraurethral Xylocaine gel; drainage bag to dependent drainage; 07/11/20; 0005 07/10/20 1045 by Lay Becker RN 07/11/20 0005 by Gricelda Hernandez LNA LDA Cath/EP Sheath 07/10/20; 1121; 8 Fr ench (Fr); Right; Femoral (RFV) 07/10/20 1121 by Lay Becker RN 07/10/20 1625 by Lay Becker RN LDA Cath/EP Sheath 07/10/20; 1121; 7 Fr ench (Fr); Right; Femoral (RFV) 07/10/20 1121 by Lay Becker RN 07/10/20 1625 by Lay Becker RN LDA Cath/EP Sheath 07/10/20; 1122; 7 Fr ench (Fr); Left; Femoral (LFV) 07/10/20 1122 by Lay Becker RN 07/10/20 1625 by Lay Becker RN LDA Cath/EP Sheath 07/10/20; 1128; 5.5 Ivorian (Fr); Left; Femoral (LFV) 07/10/20 1128 by Lay Becker RN 07/10/20 1625 by Lay Becker RN LDA Cath/EP Sheath 07/10/20; 1128; 8 Fr ench (Fr); Right; Internal jugular 07/10/20 1128 by Lay Becker RN 07/10/20 1625 by Lay Becker RN documented in this encounter Social History [...] OR Notes * Anesthesia Postprocedure Evaluation - Xander Galvez MD - 07/10/2020 9:44 PM EDT Department of Anesthesiology Post-procedure Note Patient: Rolo Aguilar Procedure Summary Date: 07/10/20 Room / Location: [facility] B-LAB ROOM 4 / [facility] EP LABS Anesthesia Start: 952 Anesthesia Stop: 1650 Procedure: ELECTROPHYSIOLOGY PROCEDURE (N/A ) Diagnosis: SVT (supraventricular tachycardia) Atrial tachycardia Wide-complex tachycardia (.) Provider: Fadi Escobar MD Responsible Provider: Xander Galvez MD Anesthesia Type: general ASA Status: 3 All Anesthesia Providers: Anesthesiologist: Emanuel Becerra MD; Xander Galvez MD BILINGUAL SPEECH THERAPIST: Xander Hairston CRNA Vitals Value Taken Time BP 113/64 07/10/20 1802 Temp 36.4 ??C (97.5 ??F) 07/10/20 1745 Pulse 70 07/10/20 1821 Resp 16 07/10/20 1730 SpO2 93 % 07/10/20 1821 Pain Level 3 07/10/20 1735 Vitals shown include unvalidated device data. Patient Location: PACU/[facility] Level of Consciousness: Awake and Alert Pain Management: Satisfactory Analgesia PONV: None Cardiovascular Status: At Baseline and Hemodynamically Stable Respiratory Status: At Baseline and Room Air Postoperative Fluid Status: Intravascular EUvolemia Possible Anesthetic Complications: NONE apparent at time of evaluation Final Primary Anesthesia Type: General (The anesthetic type performed was the same as planned.) Comments: XANDER GALVEZ MD * Anesthesia Preprocedure Evaluation - Emanuel Becerra MD - 07/08/2020 10:57 AM EDT Pre-Anesthesia Evaluation for: Rolo Aguilar a 49 y.o. male. Procedure(s): ELECTROPHYSIOLOGY PROCEDURE Patient Active Problem List Diagnosis ??? Coronary disease ?? 2017: STEMI. PCI of OM1. EF 60%. Many ER visits to [facility] after this. ??? Heart palpitations ??? Obesity ??? Essential hypertension No past medical history on file. Past Surgical History: Procedure Laterality Date ??? PRO LAP, CHOLECYSTECTOMY/GRAPH N/A 07/21/2018 LAPAROSCOPIC CHOLECYSTECTOMY WITH CHOLANGIOGRAM (WRVU 11.47) performed by Colt Hewitt MD [facility] MAIN OR ??? PRO UNLISTED LAPAROSCOPIC PX LVR N/A 07/21/2018 LAPAROSCOPIC LIVER BIOPSY (WRVU 16.52) performed by Colt Hewitt MD at [facility] MAIN OR ??? PRO UPPER GI ENDOSCOPY, BIOPSY N/A 12/29/2017 UPPER GASTROINTESTINAL ENDOSCOPY,WITH BIOPSY SINGLE OR MULTIPLE (WRVU 2.49) performed by Yusuf Tucker MD at [facility] ENDOSCOPY ??? PRO UPPER GI ENDOSCOPY, DIAGNOSTIC N/A 12/29/2017 EGD, UPPER GI ENDOSCOPY performed by Yusuf Tucker MD at [facility] ENDOSCOPY Social History Tobacco Use ??? Smoking status: Former Smoker Types: Cigarettes Quit date: 2013 Years since quittin.6 ??? Smokeless tobacco: Former User Types: Chew [...] file to calculate BMI. Airway Assessment: Mallampati: I TM distance: >3 FB Neck ROM: full Cardiovascular Assessment: Rhythm: irregular Pulmonary Assessment: pulmonary exam normal Dental Assessment: - normal exam Misc Assessment: Patient is wearing No contact(s). IV access: Peripheral line Anesthesia Plan: ASA 3 general, with a(n) intravenous induction Medical record reviewed. Patient to undergo ablation for A-flutter. History otherwise notable for: 1) Supraventricular tachycardia 2) Atrial tachycardia/fibrillation 3) Coronary artery disease > July 2017 at [facility]: Non-STEMI (EMMY of OM1) > LVEF 55-60% > Aspirin, Apixaban, statin, beta helen 4) Atypical chest pain (costchondritis, gastroesophageal reflux) 5) Hypertension 6) Sleep apnea (referral made to Sleep Clinic as of April 2020)) 7) Morbid obesity 8) Bipolar disorder with anxiety 9) RICARDO Plan: GETA, IVx2, arterial line Region - Other Informed Consent: Anesthetic plan and risks discussed with patient. Plan discussed with BILINGUAL SPEECH THERAPIST and attending. PAT Clinic Note documented in this encounter Plan of Treatment Upcoming Encounters Date Type Department Care Team (Latest Contact Info) Description 06/07/2024 2:00 PM EDT Office [place] [phone] Joan Castro MD [facility] [place] [address] 06/11/2024 1:03 PM EDT Hospital Encounter Main Operating Room [place] [phone] Rachel Carrasco MD [facility] [place] [address] 06/11/2024 1:03 PM EDT - 06/11/2024 1:58 PM EDT Surgery [place] [phone] Rachel Carrasco MD [facility] [place] [address] CYSTO, REMOVAL OF STENT, FOREIGN BODY OR CALCULUS, SIMPLE (WRVU 2.81) 06/23/2024 10:00 AM EDT Office Visit Cardiology at [address] [place] [address] Mo Horne MD [facility] [place] [address] Scheduled Procedures Name Priority Associated Diagnoses Date/Ti me CYSTO, REMOVAL OF STENT, FOR EIGN BODY OR CALCULUS, SIMPLE (WRVU 2.81) NEPHROLITHIASIS 06/11/2024 1:03 PM EDT documented as of this encounter Visit Diagnoses Not on filedocumented in this encounter Administered Medications Inactive Administered Medications - up to 3 most recent administrations Medication Order MAR Action Action Date Dose Rate Site DOBUTamine 2,000 mcg/mL (standard ADULT & Pedi greater than 20kg) CONTINUOUS PRN, Starting on Fri07/10/20 at 1230, Until Fri07/10/20 at 1651, Anesthesia Intra-op Restarted 07/10/2020 1:12 PM EDT 5 mcg/kg/min 26.1 mL/hr New Bag 07/10/2020 12:30 PM EDT 10 mcg/kg/min 52.2 mL/h r fentaNYL 50 mcg/mL multi-dose injection PRN, Starting on Fri07/10/20 at 1003, Until Fri07/10/20 at 1651, Anesthesia Intra-op, Routine Given 07/10/2020 10:03 AM EDT 100 mcg glycopyrrolate (ROBINUL) multi-dose injection PRN, Starting on Fri07/10/20 at 1618, Until Fri07/10/20 at 1651, Anesthesia Intra-op, Routine Given 07/10/2020 4:18 PM EDT 0.4 mg lactated ringers infusion CONTINUOUS PRN, Starting on Fri07/10/20 at 0952, Until Fri07/10/20 at 1651, Anesthesia Intra-op New Bag 07/10/2020 1:57 PM EDT New Bag 07/10/2020 9:52 AM EDT lactated ringers infusion CONTINUOUS PRN, Starting on Fri07/10/20 at 1015, Until Fri07/10/20 at 1651, Anesthesia Intra-op New Bag 07/10/2020 1:57 PM E DT New Bag 07/10/2020 10:15 AM EDT lidocaine (PF) (XYLOCAINE) 100 mg/5 mL (2 %) injection PRN, Starting on Fri07/10/20 at 1003, Until Fri07/10/20 at 1651, Anesthesia Intra-op, Routine Given 07/10/2020 10:03 AM EDT 50 mg neostigmine (BLOXIVERZ) injection PRN, Starting on Fri07/10/20 at 1618, Until Fri07/10/20 at 1651, Anesthesia Intra-op, Routine Given 07/10/2020 4:18 PM EDT 3 mg ondansetron (ZOFRAN) injection PRN, Starting on Fri07/10/20 at 1618, Until Fri07/10/20 at 1651, Anesthesia Intra-op, Routine Given 07/10/2020 4:18 PM EDT 4 mg PHENYLephrine (ROSALINA-SYNEPHRINE) 20 mg in sodium chloride 250 mL (standard ADULT & Pedi greater than 20kg) infusion CONTINUOUS PRN, Starting on Fri07/10/20 at 1159, Until Fri07/10/20 at 1651, Anesthesia Intra-op, Routine Rate/Dose Change 07/10/2020 3:58 PM EDT 30 mcg/min 22.5 mL/hr Rate/Dose Change 07/10/2020 3:47 PM EDT 20 mcg/min 15 mL/h r Rate/Dose Change 07/10/2020 3:28 PM EDT 10 mcg/min 7.5 mL/ hr PHENYLephrine in NS (PF) (ROSALINA-SYNEPHRINE) 0.8 mg/10 mL (80 mcg/mL) multi-dose injection Syrg PRN, Starting on Fri07/10/20 at 1145, Until Fri07/10/20 at 1651, Anesthesia Intra-op, Routine Given 07/10/2020 11:45 AM EDT 80 mcg propofol (DIPRIVAN) 10 mg/mL bolus injection (Anesthesia) PRN, Starting on Fri07/10/20 at 1003, Until Fri07/10/20 at 1651, Anesthesia Intra-op Given 07/10/2020 10:03 AM EDT 40 0 mg rocuronium (ZEMURON) multi-dose injection PRN, Starting on Fri07/10/20 at 1015, Until Fri07/10/20 at 1651, Anesthesia Intra-op, Routine Given 07/10/2020 11:03 AM EDT 20 mg Given 07/10/2020 10:15 AM EDT 50 mg succinylcholine chloride (Quelicin) injection PRN, Starting on Fri07/10/20 at 1003, Until Fri07/10/20 at 1651, Anesthesia Intra-op, Routine Given 07/10/2020 10:03 AM EDT 200 mg documented in this encounter Care Teams Executive Pilot Relationship Specialty Start Date End Date Bin Bowman MD [address] [place] [id number] PCP - General General Internal Medicine 04/21/1707/11 documented as of this encounter
--- OUTSIDE RECORDS SUMMARY | 2024-06-04 20:47 | XMS_ITS | Encounter Summary ---
Author Organization [facility] Address [facility] [place] [address] Care Team Providers Care Concrete Bucket Unloader Name Role Phone Bin Bowman MD Primary Care Provider Reason for Visit * Auth/Cert Specialty Diagnoses / Procedures Referred By Zeyad mishra Referred To Contact Diagnoses BILIARY COLIC Procedures PRO LAP, CHOLECYSTECTOMY/GRAPH PRO UNLISTED LAPAROSCOPIC PX LVR LAPAROSCOPIC CHOLECYSTECTOMY WITH CHOLANGIOGRAM (WRVU 11.47) LAPAROSCOPIC LIVER BIOPSY (WRVU 16.52) Referral ID Status Reason Start Date Expiration Date Visits Re quested Visits Authorized [id number] 1 1 Encounter Details Date Type Department Care Team (Late st Contact Info) Description 07/21/2018 12:47 PM EDT - 07/21/2018 3:56 PM EDT Surgery [place] [address] Colt Hewitt MD [facility] [place] [address] LAPAROSCOPIC CHOLECYSTECTOMY WITH CHOLANGIOGRAM (WRVU 11.47) Social History Tobacco Use Types Packs/Day Years [...] have any questions or concerns, please call [phone] before 5pm Friday through Friday; or [phone] after 5pm and on weekends. Diet: regular [...] 11:40 AM Colt Hewitt MD [facility] documented in this encounter Medications at [...] 2.49) performed by Yusuf Tucker MD at [facility] ENDOSCOPY ??? PRO UPPER GI ENDOSCOPY, DIAGNOSTIC N/A 12/29/2017 EGD, UPPER GI ENDOSCOPY performed by Yusuf Tucker MD at [facility] ENDOSCOPY SH: Non smoker Objective: Most [...] Hewitt MD - 07/21/2018 4:12 PM EDT [facility] Operative Note Patient Name: Rolo Aguilar : [id number] MR#: [id number] Case Date: 07/21/2018 Surgeon: Surgeon(s) and Role: * Colt Hewitt MD - Primary * Guerline Traore MD - Resident-Technology Infusion Specialist * Jesse Pollack MD - Fellow Preoperative [...] Info Order Time SPECIMEN TO PATHOLOGY OR BILIARY COLIC Gallbladder. excision No 07/21/2018 1:39 PM Number of tissue samples (in container) 1 Time specimen removed from patient: 1:39 PM Biospecimen to store? No SPECIMEN TO PATHOLOGY OR BILIARY COLIC Liver biopsy biopsy No 07/21/2018 [...] 2:00 PM EDT Office Visit [place] [address] Joan Castro MD [facility] [place] [address] 06/11/2024 1:03 PM EDT Hospital Encounter [place] [phone] Rachel Carrasco MD [facility] [place] [address] 06/11/2024 1:03 PM EDT - 06/11/2024 1:58 PM EDT Surgery [place] [phone] Rachel Carrasco MD [facility] [place] [address] CYSTO, REMOVAL OF STENT, FOREIGN BODY OR CALCULUS, SIMPLE (WRVU 2.81) 06/23/2024 10:00 AM EDT Office Visit Cardiology at [address] [place] [phone] Mo Horne MD [facility] [place] [address] Scheduled Procedures Name Priority Associated Diagnoses Date/Ti [...] PATHOLOGY/CYTOLOGY ORDERABLES [facility] [place] [address] * Surgical Pathology Report (07/21/2018 1:39 PM EDT) FINAL DIAGNOSIS (AP) [id number] ? Location: [facility]; [place]; A The signing pathologist has (i) examined [...] Durbin MD Verified: ??07/24/2018 ?Pathologist Performed at: ??-[facility] Dept. of Pathology, [place], [place] CLINICAL INFORMATION Specimen Submitted: A - [...] black. Sections/Processin g: Cystic duct margin and international representative gallbladder body sections submitted. (R1) ??rm 07/24/2018 4:34 PM EDT [facility] 07/21/2018 1:39 PM EDT Colt Hewitt MD PATHOLOGY/CYTOLOGY ORDERABLES Performing Organization Address [facility] Co de Phone Number [facility] [place] [address] * Specimen to Pathology (07/21/2018 1:39 PM EDT) AP Specimen 07/21/2018 1:39 PM EDT 07/21/2018 2:20 PM EDT Narrative [facility] - 07/21/2018 2:20 PM EDT Specimen requisition ordered. ??Separate Pathology report to follow Resulting Agency Comment Spec In Lab Colt Hewitt MD PATHOLOGY/CYTOLOGY ORDERABLES Performing Organization Address [facility] [place] [address] * XR Fluoro No Rad <1Hr - OR Use (07/21/2018 1:30 PM EDT) Narrative RAD - 07/21/2018 1:42 PM EDT This order does not need a radiologist interpretation. ?? Colt Hewitt MD IMG FLUORO ORDERABL ES Performing Organization Address [facility] Co de Phone Number RAD [place], [place] documented in this encounter Visit Diagnoses [...] Given 07/21/2018 2:38 PM EDT 650 mg BUpivacaine (PF) (MARCAINE) 0.25 % (2.5 mg/mL) injection ONCE PRN, Starting on Fri07/21/18 at 1255, Until Fri07/21/18 at 1819, Intra-Operative (Intra-Procedure), Routine Given 07/21/2018 12:55 PM EDT 11 mLs 19- Surgical Site ceFAZolin (ANCEF) 3g in dextrose 5% [...] Given 07/21/2018 2:30 PM EDT 0.6 mg iohexol (OMNIPAQUE) 300 mg/mL solution ONCE PRN, Starting on Fri07/21/18 at 1320, Until Fri07/21/18 at 1819, Intra-Operative (Intra-Procedure), Routine Given 07/21/2018 1:20 PM EDT 20 mLs 19- Surgical Site lactated Ringers infusion 1,000 mL 1,000 mL, [...] Routine 1445 (Given - Provid er: Cintia Vieira RN) Continuous Medication Order 07/19/2018 07/20/2018 07/21/2018 [...] Cintia Vieira RN)1430 (Given - Provider: Cintia Vieira RN)1448 (Given - Provider: Cintia Vieira RN)1456 (Given - Provider: Cintia Vieira, RN) iohexol (OMNIPAQUE) 300 mg/mL solution (CANCELED) ONCE PRN, Starting on Fri07/21/18 at 1320, Until Fri07/21/18 at 1819, Intra-Operative (Intra-Procedure), Routine 1320 (Given - Provid er: Colt Hewitt MD) ondansetron (ZOFRAN-ODT) oral disintegrating tablet 4 mg 4 mg, Oral, EVERY 8 HOURS PRN, Starting on Fri07/21/18 at 1429, Until Fri07/21/18 at 1819, Nausea, Routine documented in this encounter Care Teams Concrete Bucket Unloader Relationship Specialty Start Date End Date Bin Bowman MD [address] [place] [phone] PCP - General General Internal Medicine 04/21/1707/11 documented as of this encounter
--- OUTSIDE RECORDS SUMMARY | 2024-06-04 20:47 | XMS_ITS | Encounter Summary ---
Author Organization [facility] Address [facility] [place] [address] Care Team Providers Care [employer] Name Role Phone Bin Bowman MD Primary Care Provider [phone] Reason for Visit * Auth/Cert Specialty Diagnoses / Procedures Referred By Zeyad mishra Referred To Contact Diagnoses . Procedures ELECTROPHYSIOLOGY PROCEDURE Referral ID Status Reason Start Date Expiration Date Visits Re quested Visits Authorized [id number] 1 1 Encounter Details Date Type Department Care Team (Late st Contact Info) Description 07/10/2020 8:30 AM EDT - 07/10/2020 3:29 PM EDT Surgery [place] [address] Fadi Escobar MD [facility] [place] [address] ELECTROPHYSIOLOGY PROCEDURE Social History Tobacco Use Types [...] Sign Reading Time Taken Comments Blood Pressure 142/82 07/10/2020 7:56 AM EDT Pulse 65 07/10/2020 7:56 AM EDT Temperature 36.7 ??C (98.1 ??F) 07/10/2020 7:56 AM ED T Respiratory Rate 16 07/10/2020 7:56 AM EDT Oxygen Saturation 100% 07/10/2020 7:56 AM EDT Inhaled Oxygen Concentration - - Weight 173.9 kg (383 lb 4.8 oz) 07/10/2020 7:56 AM EDT Height 167.6 cm (5' 6) 07/10/2020 7:56 AM EDT Body Mass Index 63.16 07/10/2020 7:56 AM EDT documented in this encounter Discharge Summaries * Fadi Escobar MD - 07/11/2020 7:07 AM EDT Cardiac Electrophysiology Discharge Summary Patient Name: Rolo Aguilar Patient Age: 49 y.o. 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 Discharge Diagnoses (Hospital Problems) and Secondary Diagnoses (Chronic Problems): Active Hospital Problems Diagnosis ??? H/O cardiac radiofrequency ablation Resolved Hospital Problems No resolved problems to display. Active Non-Hospital Problems Diagnosis ??? Coronary disease ??? Heart palpitations ??? Obesity ??? Essential hypertension Operations/Major Procedures: Operations: CTI ablation Procedure(s) with comments: ELECTROPHYSIOLOGY PROCEDURE - Procedure and Procedure Specific Questions: Ablation- Atrial Flutter 1. Is the patient Diabetic? No 2. Is the Patient on Coumadin? No 3. Medication Taper? Yes Instructions: Continue all medications until day of procedure, except holdmetoprolol AM of procedure, and last dose apixaban should be in AM the day prior to the planned procedure. 5. Access: bilateral 6. When should the procedure be scheduled? Next Available Time: Fadi Escobar MD Additional Commen History of Presentation: 49 y.o. male with a history of SVT, ASCVD (s/p NSTEMI, EMMY to OM1 in 07/2017), HTN, sleep apnea, RICARDO, and obesity, who was electively admitted for EPS/ablation on 07/10/20. In April 2020, he was evaluated in the ED for palpitations and noted to be in SVT at 164bpm. Adenosine was administered and he reverted to a faster WCT necessitating DCCV to SR. He had another occurrence of sustained, symptomatic SVT requiring emergent medical care about 1-2 weeks after the first episode. Given this history, the decision was made to pursue EPS/ablation. Hospital Course: - Elective admission for EPS/ablation - Underwent acute successful CTI ablation - Admitted post ablation for pain management, access site management in the setting of anticoagulation, telemetry monitoring, and evaluation of their medical condition. Vital Signs at Discharge: BP: 128/73, Heart Rate: 79, Temp: 37 ??C (98.6 ??F), Resp: 16, BMI (Calculated): 61.86 Height: 167.6 cm (5' 6) (07/10/20 0756) Weight: (!) 177.5 kg (391 lb 5.1 oz) (07/11/20 0500) Functional and Cognitive Status: Stable Admission Diagnoses: H/O cardiac radiofrequency ablation [Z98.890] Discharge Diagnoses: H/O cardiac radiofrequency ablation [Z98.890] Admission Condition: good Indication for Admission: Medical necessity/monitoring post-procedure Consults: none Important Studies and Lab Data: Lab Results Component Value Date WBC 9.9 (H) 07/10/2020 HGB 15.6 07/10/2020 HCT 47.3 07/10/2020 PLATELET 208 07/10/2020 Recent Labs 07/10/20 0738 INR 1.2 Lab Results Component Value Date NA 140 07/10/2020 K 4.7 07/10/2020 CL 100 07/10/2020 BUN 13 07/10/2020 CREATININE 1.05 07/10/2020 MAGNESIUM 0.82 07/16/2017 Treatments: s/p CTI ablation Discharge Exam: Please see physical exam in day of discharge progress note. No changes. Discharge Conditions/Prognosis: good Discharge to: home Updated Allergies/ADRs: Allergies Allergen Reactions ??? Adenosine Palpitations tachycardia ??? Gabapentin ??? Wellbutrin [Bupropion Hcl] ??? Zoloft [Sertraline] Immunizations Given this Hospitalization: There is no immunization history on file for this patient. Discharge Medications: Your Medications Continued medications with new dosing Dose Details atorvastatin 80 mg Tab Commonly known as: Lipitor Take 1 tablet by mouth every evening. What changed: how much to take 80 mg Quantity: 90 tablet Refills: 3 lamoTRIgine 200 mg Tab Commonly known as: LaMICtal Take 1 tablet by mouth daily. What changed: how much to take 200 mg Quantity: 30 tablet Refills: 3 metoprolol succinate XL 100 mg Tablet sr Commonly known as: Toprol-XL Take 1 tablet by mouth 2 times daily. What changed: when to take this 100 mg Quantity: 90 tablet Refills: 1 Continued medications, unchanged Dose Details acetaminophen 325 mg Tab Commonly known as: Tylenol Take 2 tablets by mouth every 6 hours as needed for Pain. 650 mg Quantity: 30 tablet Refills: 1 apixaban 2.5 mg Tab Commonly known as: Eliquis Take 5 mg by mouth 2 times daily. 5 mg Refills: 0 aspirin EC 81 mg Tbec Take 1 tablet by mouth daily. 81 mg Quantity: 30 tablet Refills: 3 clindamycin 1 % Gel Commonly known as: CLINDAGEL APPLY TOPICALLY TO AFFECTED AREA TWICE DAILY Refills: 1 clonazePAM 1 mg Tab Commonly known as: KlonoPIN Take 1 mg by mouth 2 times daily as needed for Anxiety. 1 mg Refills: 0 hydroCHLOROthiazide 12.5 mg Tab Commonly known as: Hydrodiuril take 1 tablet by mouth once daily Refills: 0 lisinopriL 2.5 mg Tab Commonly [...] tablet Refills: 3 Smoking Status at Discharge: Social History Tobacco Use Smoking Status Former Smoker ??? Types: Cigarettes ??? Quit date: 2013 ??? Years since quittin.6 Smokeless Tobacco Former User ??? Types: Chew Instructions Given to Patient at Discharge: Patient Instructions DISCHARGE INSTRUCTIONS FOLLOWING YOUR ABLATION 1. Medications as prescribed. 2. Follow up with Dr. Escobar in 3 months. 3. Resume anticoagulation as per your home [...] of any new medications initiated at the [facility]. The patient should be aware and [...] his/her physician or the Cardiac Electrophysiology Service ([phone]). Cardiac Electrophysiology Attending This patient was reviewed with Mr. Kahn and Dr. De Anda. I discussed procedural results and findings with Mr. Aguilar, and recommended follow up in ~3 months (sooner prn) after he wears a Zio monitor and results are available. If insurance in [place] fails to cover the cost of the Zio monitor,implantation of an ILR should be considered if otherwise he goes on to have any other symptoms attributable to a dysrhythmia. documented in this encounter Discharge Instructions * Discharge Instructions* Mary Daley PA - 07/11/2020 9:45 AM EDT * Patient Instructions* Mary Daley PA - 07/11/2020 9:45 AM EDT DISCHARGE INSTRUCTIONS FOLLOWING YOUR ABLATION 1. Medications as prescribed. 2. Follow up with Dr. Escobar in 3 months. 3. Resume anticoagulation as per your home [...] of any new medications initiated at the [facility]. The patient should be aware and [...] his/her physician or the Cardiac Electrophysiology Service ([phone]). documented in this encounter Medications at Time [...] 3 times daily as needed for Anxiety. apixaban (Eliquis) 2.5 mg Tablet Take 5 [...] as of this encounter Progress Notes * Mary Daley PA - 07/11/2020 7:06 AM EDT Cardiac Electrophysiology Post-Ablation Day of Discharge Progress Note Problem List: Patient Active Problem List Diagnosis ??? H/O cardiac radiofrequency ablation ??? Coronary disease Overview Note: ?? 2017: STEMI. PCI of OM1. EF 60%. Many ER visits to [facility] after this. ??? Heart palpitations ??? Obesity ??? Essential hypertension Brief HPI: 49 y.o. male with a history of SVT, ASCVD (s/p NSTEMI, EMMY to OM1 in 07/2017), HTN, sleepapnea, RICARDO, and obesity, who was electively admitted for EPS/ablation on 07/10/20. In April 2020, he was evaluated in the ED for palpitations and noted to be in SVT at 164bpm. Adenosine was administered and he reverted to a faster WCT necessitating DCCV to SR. He had another occurrence of sustained, symptomatic SVT requiring emergent medical care about 1-2 weeks after the first episode. Given this history, the decision was made to pursue EPS/ablation. Interval History: Mr. Aguilar is doing well this morning. He denies chest pain, shortness of breath, palpitations. He reports bleeding from the left access site while walking after bedrest last night, this has resolved and a new bandage was applied by the nursing staff. ROS: Constitutional: - fatigue, - fever, - chills Respiratory: Please see HPI/Interval History Cardiovascular: Please see HPI/Interval History Gastrointestinal: - nausea, - vomiting, - abdominal pain, - diarrhea Neurological: Please see HPI/Interval History Psychiatric: - anxious Vitals: Last Set of Vitals and range of vitals over past 24 hours: Last value Range last 24 hrs Temperature Temp: 37 ??C (98.6 ??F) Temp: [36.4 ??C (97.5 ??F)-37.1 ??C (98.8 ??F)] Heart Rate Heart Rate: 79 Heart Rate: [65-107] Blood Pressure BP: 128/73 BP: (96-142)/(47-82) Respiratory Rate Resp: 16 Resp: [16-20] SpO2 SpO2: 98 % SpO2: [90 %-100 %] Physical Exam: General- No acute distress, laying comfortably in bed Skin- Warm and dry, numerous tattoos Neck- No JVD note. RIJ acces site with moderate hematoma, overlaying ice pack during exam this morning. Cardiovascular- S1/S2 regular rate and rhythm. No murmur, rub or gallop Lungs- Clear to auscultation bilaterally Extremities- Pulses equal bilaterally. No edema noted. R/L groin are CDI. Neuro- A&Ox3 Telemetry- SR in the 70s-90s, rarely 100s Laboratory (Last 24 Hours): Lab Results Component Value Date WBC 9.9 (H) 07/10/2020 HGB 15.6 07/10/2020 HCT 47.3 07/10/2020 PLATELET 208 07/10/2020 Lab Results Component Value Date NA 140 07/10/2020 K 4.7 07/10/2020 CL 100 07/10/2020 BUN 13 07/10/2020 CREATININE 1.05 07/10/2020 MAGNESIUM 0.82 07/16/2017 Procedures: EPS/Ablation 07/10/20 s/p CTI ablation- final report pending Assessment: 49 y.o. male with a history of SVT, ASCVD (s/p NSTEMI, EMMY to OM1 in 07/2017), HTN, sleep apnea, RICARDO, and obesity, who is POD#1 s/p CTI (typical atrial flutter) ablation. Left femoral access site hasbleeding has resolved. Given evidence of single echo beat consistent with cycle length of clinical SVT, will encourage up-titration of beta-helen to minimize risk of recurrent arrhythmia. A Zio monitor is recommended for ambulatory monitoring of recurrent arrhythmia/symptoms, however, patient's insurance coverage is not supporting this diagnostic tool. Consideration of ILR will be made pending symptoms and follow-up. Plan: 1. Reviewed post-ablation instructions 2. Metoprolol succinate 100mg po bid 3. Continue anticoagulation with Eliquis 4. Follow up in [address] Escobar. 5. Discharge today I appreciate the opportunity to be involved with Mr. Aguilar's care. Please do not hesitate to contact EP with any further questions (pager [phone]). SONNY Grover 07/11/2020 Pager: [phone] * Justa Rider, FLAVIA - 07/10/2020 10:29 PM EDT 21:30 Pt started bleeding from L femoral access during ambulation. Manual pressure applied for 30 minutes. No sign of hematoma. Dressing and a sand bag applied. 22:30 Dressing on L femoral dry and intact. Shanks catheter d/c held and pt stayed on bed for an extended period. Will continue monitoring. * Wes Nina MD - 07/10/2020 9:29 PM EDT Patient developed L femoral access site bleed. No pulsating hematoma or bruise. Hemostasis achievedwith site pressure. * Autumn Dobson RN - 07/10/2020 6:25 PM EDT Pt states he is more comfortable. Shannon po sips. Report to [facility]. documented in this encounter H&P Notes * Fadi Escobar MD - 07/10/2020 9:47 AM EDT Interval History and Physical Exam: Planned Procedure [facility] HISTORY OF PRESENT ILLNESS: Rolo Aguilar is a 49 y.o. male with multiple symptomatic dysrhythmias recently. April 27 to the Emergency Department in [facility] with an episode of supraventricular tachycardia (SVT) at a rate of 164/minute. He was given adenosine, and evidently reverted to a faster poorly tolerated wide complex tachycardia. In response to this, direct current cardioversion was accomplished (300 Joule applications x 3, first 2 followed by with [...] monitoring,but he then remained in sinus rhythm. He had a TH wit Dr Escobar in May of this year: discussed the nature of the electrophysiology procedure, including sedation (with support from the Anesthesiology team), the electrophysiology stimulation study, mapping, and ablation. Risks of harm, limitations, and expected benefits were reviewed. I would prioritize targeting organized dysrhythmias, unless otherwise masked by fibrillatory conduction. It is not yet clear if he otherwise has any significant fibrillatory burden, but he is unaware of that if it is the case. LAST Oral Anticoagulation dose: apixaban last taken 07/09/2020 am denies recent bleeds, trauma, interval fevers chills or neurological changes. ROS: Denies recent fevers, chills. No syncope No orthopnea, PHYSICAL EXAM: Vital Signs: BP 142/82 (BP Location (NBP): Left arm) Pulse 65 Temp 36.7 ??C (98.1 ??F) (Temporal) Resp 16 Ht 167.6 cm (5' 6) Wt (!) 173.9 kg (383 lb 4.8 oz) SpO2 100% BMI 61.87 kg/m?? A&O x 3, calm conversant, no acute distress JVD non disteneded Lung: clear to auscultation bilaterally, normal respiratory effort Heart: regular S1 S 2no murmurs, rubs or gallops Chest: no open wound or new rash, Femoral vein Site/Groin: no new rash, no thrills. Ext: +1 edema PROBLEM LIST: Patient Active Problem List Diagnosis Code ??? Coronary disease I25.10 ??? Heart palpitations R00.2 ??? Obesity E66.9 ??? Essential hypertension I10 ALLERGIES: Allergies Allergen Reactions ??? Adenosine Palpitations tachycardia ??? Gabapentin ??? Wellbutrin [Bupropion Hcl] ??? Zoloft [Sertraline] MEDICATIONS: No current facility-administered medications for this encounter. Current Outpatient Medications Medication Sig Dispense Refill ??? apixaban (Eliquis) 2.5 mg Tablet Take 5 mg by mouth 2 times daily. ??? lisinopriL (Prinivil;Zestril) 2.5 mg Tablet Take 1 tablet by mouth daily. 90 tablet 3 ??? metoprolol succinate XL (Toprol-XL) 100 mg Tablet Sustained Release 24 hr Take 1 tablet by mouth daily. 90 tablet 1 ??? hydroCHLOROthiazide (HYDRODIURIL) 12.5 mg Tablet take 1 tablet by mouth once daily 0 ??? pantoprazole (PROTONIX) 40 mg Tablet, Delayed Release (E.C.) Take 1 tablet by mouth 2 times daily. 180 tablet 3 ??? acetaminophen (TYLENOL) 325 mg Tablet Take 2 tablets by mouth every 6 hours as needed for Pain.30 tablet 1 ??? aspirin 81 mg Tablet, Delayed Release (E.C.) Take 1 tablet by mouth daily. 30 tablet 3 ??? atorvastatin (LIPITOR) 80 mg Tablet Take 1 tablet by mouth every evening. (Patient taking differently: Take 40 mg by mouth every evening.) 90 tablet 3 ??? lamoTRIgine (LAMICTAL) 200 mg Tablet Take 1 tablet by mouth daily. (Patient taking differently:Take 100 mg by mouth daily.) 30 tablet 3 ??? clonazePAM (KLONOPIN) 1 mg Tablet Take 1 mg by mouth 2 times daily as needed for Anxiety. ??? clindamycin (CLINDAGEL) 1 % Gel APPLY TOPICALLY TO AFFECTED AREA TWICE DAILY 1 ??? nitroGLYcerin (NITROSTAT) 0.4 mg Tablet, Sublingual DISSOLVE 1 UNDER TONGUE NEEDED 4 PAST SURGICAL HISTORY: Past Surgical History: Procedure Laterality Date ??? PRO LAP, CHOLECYSTECTOMY/GRAPH N/A 07/21/2018 LAPAROSCOPIC CHOLECYSTECTOMY WITH CHOLANGIOGRAM (WRVU 11.47) performed by Colt Hewitt MD [facility] MAIN OR ??? PRO UNLISTED LAPAROSCOPIC PX LVR N/A 07/21/2018 LAPAROSCOPIC LIVER BIOPSY (WRVU 16.52) performed by Colt Hewitt MD at [facility] MAIN OR ??? PRO UPPER GI ENDOSCOPY, BIOPSY N/A 12/29/2017 UPPER GASTROINTESTINAL ENDOSCOPY,WITH BIOPSY SINGLE OR MULTIPLE (WRVU 2.49) performed by Yusuf Tucker MD at [facility] ENDOSCOPY ??? PRO UPPER GI ENDOSCOPY, DIAGNOSTIC N/A 12/29/2017 EGD, UPPER GI ENDOSCOPY performed by Yusuf Tucker MD at [facility] ENDOSCOPY Accessory Clinical Findings: Laboratory Data: Lab Results Component Value Date WBC 9.9 (H) 07/10/2020 HGB 15.6 07/10/2020 HCT 47.3 07/10/2020 MCV 89.4 07/10/2020 Lab Results Component Value Date NA 140 07/10/2020 K 4.7 07/10/2020 CL 100 07/10/2020 CO2 32 (H) 07/10/2020 BUN 13 07/10/2020 CREATININE 1.05 07/10/2020 GLUCOSE 107 07/16/2017 GLUCFASTING 113 (H) 07/10/2020 CALCIUM 10.0 07/10/2020 ESTGFR 82 07/10/2020 Lab Results Component Value Date TSH 1.55 07/14/2017 Lab Results Component Value Date INR 1.2 07/10/2020 INR 1.2 (H) 07/13/2017 ASSESSMENT AND PLAN: EPS with possible ablation Would prioritize targeting organized dysrhythmias, unless otherwise masked by fibrillatory conduction GA Lindsey Brar MD 07/10/20 9:50 AM Cardiac Electrophysiology Attending This patient was seen and evaluated, and reviewed with Dr. Christie. I agree with principal findings documentd. I discussed the nature of the planned procedure and associated contingencies with the patient and his (and answered all of their questions). The impression and plan incorporate my input. documented in this encounter Miscellaneous Notes * Initial Assessments - Meseret Bowers RN - 07/11/2020 11:35 AM EDT Attempted to see patient to complete initial assessment. He had left the hospital. He was on the EP service for dysrythmnia. He is insured through [place] Medicaid with prescription coverage. Per discussion with RN, he was independent and had no needs on discharge. * Plan of Care - Kushal-Justa Lee RN - 07/11/2020 3:43 AM EDT OUTCOME EVALUATION NOTE: OUTCOME SUMMARY: Pt A/O x4. Ambulation after bedrest caused bleeding from L femoral cath site. Bleeding stopped after manual pressure and sand bag. Shanks discontinued as ordered; pt voiding well though c/o burning aturination. Pt stood up on scale without bleeding, hematoma, or tenderness. Dressing dry and intact.Will continue monitoring. Call weeks within reach. PLAN MOVING FORWARD: Discharge to home today if no further complications INDIVIDUALIZED FALL PREVENTION INTERVENTIONS: Patient-specific fall risk factors per assessment: [current deficits]: Unfamiliar environment, telemetry leads, incisions on groin Assistance [level of assistance required for transfers and ambulation]: SBA Supervision [direct monitoring required during toileting and ADLs]: Eyes on Surveillance [continuous indirect monitoring]: Telemetry, call weeks within reach, purposeful rounding, room by nurse station Patient-specific fall prevention interventions for sensory deficits provided, if applicable: [X] No CPG GOAL OUTCOME EVALUATION: documented in this encounter Plan of Treatment Upcoming Encounters Date Type Department Care Team (Latest Contact Info) Description 06/07/2024 2:00 PM EDT Office [place] [phone] Joan Castro MD [facility] [place] [address] 06/11/2024 1:03 PM EDT Hospital Encounter Main Operating Room [place] [phone] Rachel Carrasco MD [facility] [place] [address] 06/11/2024 1:03 PM EDT - 06/11/2024 1:58 PM EDT Surgery [place] [phone] Rachel Carrasco MD [facility] [place] [address] CYSTO, REMOVAL OF STENT, FOREIGN BODY OR CALCULUS, SIMPLE (WRVU 2.81) 06/23/2024 10:00 AM EDT Office Visit Cardiology at [address] [place] [address] Mo Horne MD [facility] [place] [address] Scheduled Orders Name Type Priority Associated Diagnoses Orde r Schedule EKG 12 Lead ECG Routine SVT (supraventricular tachycardia) One Time for 1 Occurrences starting 07/11/2020 until 07/11/2020 Scheduled Procedures Name Priority Associated Diagnoses Date/Ti me CYSTO, REMOVAL OF STENT, FOR EIGN BODY OR CALCULUS, SIMPLE (WRVU 2.81) NEPHROLITHIASIS 06/11/2024 1:03 PM EDT documented as of this encounter Procedures Procedure Name Priority Date/Time Associated Diagnosis Comments EKG 12-LEAD Routine 07/10/2020 8:14 AM EDT SVT (supraventricular tachycardia) BMP W/FASTING GLUCOSE STAT 07/10/2020 7:38 AM EDT HEMOGRAM STAT 07/10/2020 7:38 AM EDT DIFFERENTIAL, AUTOMATED STAT 07/10/2020 7:38 AM EDT HC PROTHROMBIN TIME STAT 07/10/2020 7 :38 AM EDT HC CBC,PLT & AUTO DIFF STAT 07/10/2020 7:38 AM EDT documented in this encounter Results * EKG 12 Lead (07/10/2020 8:14 AM EDT) Ventricular rate 65 BPM MUSE SYSTEM Atrial Rate 65 BPM MUSE SYSTEM P-R Interval 150 ms MUSE SYSTEM QRS Duration 98 ms MUSE SYSTEM Q-T Interval 410 ms MUSE SYSTEM QTC Calculated (Bezet) 426 ms MUSE SYSTEM Calculated P [place] 27 degrees MUSE SYSTEM Calculated R [place] 29 degrees MUSE SYSTEM Calculated T [place] 18 degrees MUSE SYSTEM INTERPRETATION Normal sinus rhythm Normal ECG When compared with ECG of 16-JUL-2017 06:45, T wave inversion less evident in Inferior leads Nonspecific T wave abnormality no longer evident in Lateral leads I personally reviewed the tracing and edited the fellows interpretation Confirmed by fellow Humza Wilson ([id number]) on 07/10/2020 11:25:10 AM Confirmed by MD Cheng, Jose [id number]) on 07/10/2020 2:19:23 PM MUSE SYSTEM 07/10/2020 8:14 AM EDT 07/10/2020 2:19 PM EDT Fadi Escobar MD ECG ORDERABLES MUSE SYSTEM * Differential, Automated (07/10/2020 7:38 AM EDT) Neutrophils % 57.6 % [facility] Neutr Abs (ANC) 5.69 1.70 - 6.10 x10(3)/[facility] Lymphocytes % 31.6 % [facility] Lymphocytes Abs 3.1 0.9 - 3.2 x10(3)/[facility] Monocytes % 7.6 % [facility] Monocyte Abs 0.8 0.3 - 0.9 x10(3)/[facility] Eosinophils % 2.2 % [facility] Eosinophils Abs 0.2 0.0 - 0.4 x10(3)/[facility] Basophils % 0.6 % [facility] Basophils Abs 0.1 0.0 - 0.1 x10(3)/[facility] Immature Gran % 0.40 % [facility] Comment: Immature granulocytes(IG's)percentage and absolute count will include metamyelocytes, myelocytes, and promyelocytes. Blood smears from CBCs yielding IG's will be scanned manually for concordance. If this scan disagrees with the automated IG or if promyelocytes are noted, a manual differential will be performed. Amy Gran Abs 0.04 0.00 - 0.04 x10(3)/[facility] Blood specimen (specimen) 07/10/2020 7:38 AM EDT 07/10/2020 7:55 AM EDT Narrative Resulting Agency Comment Spec In Lab Fadi Escobar MD HEMATOLOGY ORDERABLE S [facility] [place] [address] * (ABNORMAL) Hemogram (07/10/2020 7:38 AM EDT) WBC 9.9(H) 4.0 - 9.5 x10(3)/[facility] RBC 5.29 4.58 - 5.54 x10(6)/[facility] Hemoglobin 15.6 13.7 - 16.5 gm/dL [facility] Hematocrit 47.3 40.5 - 48.5 % [facility] MCV 89.4 82.9 - 93.1 [facility] MCH 29.5 27.5 - 32.1 pg [facility] MCHC 33.0 32.0 - 35.7 gm/dL [facility] Platelets 208 145 - 357 x10(3)/[facility] RDWSD 41.3 36.0 - 45.0 [facility] LABORATORY RDWCV 12.5 11.4 - 13.8 % [facility] LABORATORY MPV 10.7 7.6 - 12.9 [facility] LABORATORY nRBC % Auto 0.0 % [facility] LABORATORY nRBC Abs Auto 0.000 0.000 - 0.000 x10(3)/[facility] LABORATORY Blood specimen (specimen) 07/10/2020 7:38 AM EDT 07/10/2020 7:55 AM EDT Narrative Resulting Agency Comment Spec In Lab Fadi Escobar MD HEMATOLOGY ORDERABLE S [facility] [place] [address] * (ABNORMAL) BMP w/fasting Glucose (07/10/2020 7:38 AM EDT) Glucose Fasting 113(H) 65 - 99 mg/dL [facility] Comment: ?Fasting* Glucose [...] of Diabetes Mellitus, Position Statement from the [place] [employer]. ??Diabetes Care, Volume 33, Supplement 1, Nov 2009 BUN 13 10 - 20 mg/dL [facility] Creatinine 1.05 0.80 - 1.50 mg/dL [facility] Sodium 140 135 - 145 mmol/L [facility] Potassium 4.7 3.5 - 5.0 mmol/L [facility] Comment: Please note: ??Patients with WBC >100,000 may have falsely elevated Potassium levels. ??For accurate Potassium quantification in these patients send serum separator tube (gold top) for subsequent determinations. ??Contact the Clinical Chemistry Laboratory if there are any questions. Chloride 100 98 - 107 mmol/L [facility] CO2 32(H) 22 - 31 mmol/L [facility] Anion Gap 8 5 - 15 mmol/L [facility] Calcium 10.0 8.5 - 10.5 mg/dL [facility] Estimated GFR 82 >=60 mL/min/1. 73 m?? [facility] Comment: The eGFR was calculated using the CKD-EPI equation. As with all creatinine based estimates of kidney function, eGFR values calculated with the CKD-EPI equation are not accurate in patients with acute kidney failure, extremes of body mass or the acutely ill. http://LoLo/DHMCnkf eGFR 95 >=60 mL/min/1. 73 m?? [facility] Comment: The eGFR was calculated using the CKD-EPI equation. As with all creatinine based estimates of kidney function, eGFR values calculated with the CKD-EPI equation are not accurate in patients with acute kidney failure, extremes of body mass or the acutely ill. http://Futuretec.Sportsvite D/B/A LeagueApps/DHMCnkf Blood specimen (specimen) 07/10/2020 7:38 AM EDT 07/10/2020 7:56 AM EDT Narrative Resulting Agency Comment Spec In Lab Fadi Escobar MD CHEMISTRY ORDERABLES Performing Organization Address [facility] de Phone Number [facility] [place] [address] * (ABNORMAL) Prothrombin Time (07/10/2020 7:38 AM EDT) PT 14.0(H) 9.4 - 12.5 sec [facility]OR[facility]ORY INR 1.2 [facility] LABORATORY Comment: An INR <2.0 indicates [...] depending on clinical circumstances. Blood specimen (specimen) 07/10/2020 7:38 AM EDT 07/10/2020 7:55 AM EDT Narrative Resulting Agency Comment Spec In Lab Fadi Escobar MD HEMATOLOGY ORDERABLE S Performing Organization Address [facility] Co de Phone Number [facility] [place] [address] documented in this encounter Visit Diagnoses Diagnosis SVT (supraventricular tachycardia) Other specified cardiac dysrhythmias Coronary disease Essential hypertension Unspecified essential hypertension Heart palpitations Palpitations SVT (supraventricular tachycardia) Other specified cardiac dysrhythmias Atrial tachycardia Other specified cardiac dysrhythmias Wide-complex tachycardia Paroxysmal ventricular tachycardia documented in this encounter Admitting Diagnoses Diagnosis H/O cardiac radiofrequency ablation documented in this encounter Administered Medications Inactive Administered Medications - up to 3 most recent administrations Medication Order MAR Action Action Date Dose Rate Site acetaminophen (Tylenol) tablet 650 mg 650 mg, Oral, EVERY 6 HOURS PRN, Starting on Fri07/10/20 at 1631, Until Fri07/11/20 at 1335, Pain, Maximum dose of acetaminophen is 4000 mg from all sources in 24 hours. When ordered for pain, acetaminophen should be given even when other ordered pain medications are indicated. , Routine Given 07/11/2020 4:25 AM EDT 650 mg apixaban (Eliquis) tablet 5 mg 5 mg, Oral, 2 TIMES DAILY, First dose on Fri07/10/20 at 2100, Until Discontinued, Anticoagulant, Routine, Restricted anticoagulant, choose the most appropriate response: Continuation of ongoing therapy Given 07/11/2020 9:00 AM EDT 5 mg Given 07/10/2020 9:33 PM EDT 5 mg aspirin EC tablet 81 mg 81 mg, Oral, DAILY, First dose on Fri07/11/20 at 0900, Until Discontinued, Routine Given 07/11/2020 9:02 AM EDT 81 mg atorvastatin (Lipitor) tablet 80 mg 80 mg, Oral, EVERY EVENING, First dose on Fri07/10/20 at 1930, Until Discontinued, Routine Given 07/10/2020 9:33 PM EDT 80 mg BUpivacaine (PF) (MARCAINE) 0.5 % (5 mg/mL) injection 150 mg 150 mg (30 mL), Subcutaneous, ONCE, 1 dose, On Fri07/10/20 at 1145, EP (Intra-Procedure), Routine Given 07/10/2020 11:00 AM EDT 150 mg clonazePAM (KlonoPIN) tablet 1 mg 1 mg, Oral, 2 TIMES DAILY PRN, Starting on Fri07/10/20 at 1631, Until Fri07/11/20 at 1335, Anxiety, DO NOT SPLIT, CRUSH OR OPEN, Routine Given 07/11/2020 9:06 AM EDT 1 mg Given 07/10/2020 9:37 PM EDT 0.5 mg hydroCHLOROthiazide (Hydrodiuril) tablet 12.5 mg 12.5 mg, Oral, DAILY, First dose on Fri07/10/20 at 1930, Until Discontinued, Routine Given 07/11/2020 9:03 AM EDT 12.5 mg Given 07/10/2020 9:33 PM EDT 12.5 mg HYDROmorphone (DILAUDID) injection 0.4-0.6 mg 0.4-0.6 mg, Intravenous, EVERY 5 MIN PRN, Starting on Fri07/10/20 at 1630, Until Fri07/10/20 at 1821, Pain, Give 0.4 mg every 5 minutes [...] for breakthrough pain., PACU Recovery, Routine Given 07/10/2020 5:35 PM EDT 0.2 mg Given 07/10/2020 5:09 PM EDT 0.4 mg Given 07/10/2020 4:55 PM EDT 0.4 mg lactated ringers infusion 1,000 mL, at 100 mL/hr, Intravenous, CONTINUOUS, Starting on Fri07/10/20 at 0815, Until Fri07/10/20 at 1821, Day of Surgery (Day of Procedure) New Bag 07/10/2020 8:23 AM EDT 1,000 mLs 100 mL/hr lactated ringers infusion 1,000 mL, at 100 mL/hr, Intravenous, CONTINUOUS, Starting on Fri07/10/20 at 1700, Until Fri07/10/20 at 1821, PACU Recovery Continued Bag 07/10/2020 4:56 PM EDT 1,000 mLs 100 mL/hr lamoTRIgine (LaMICtal) tablet 200 mg 200 mg, Oral, DAILY, First dose on Fri07/10/20 at 1930, Until Discontinued, Routine Given 07/11/2020 9:02 AM EDT 200 mg Given 07/10/2020 9:32 PM EDT 200 mg lidocaine ((GLYDO)) 2 % gel 10 mL 10 mL, INTRA-URETHRAL, ONCE, 1 dose, On Fri07/10/20 at 1145, EP (Intra-Procedure), Routine Given 07/10/2020 10:40 AM EDT 10 mLs lidocaine (XYLOCAINE) 10 mg/mL (1 %) injection 3 mg 3 mg (0.3 mL), Subcutaneous, ONCE PRN, 1 dose, Starting on Fri07/10/20 at 0756, Until Fri07/10/20 at 0823, for discomfort with PIV insertion, Day of Surgery (Day of Procedure), Routine Given 07/10/2020 8:23 AM EDT 3 mg lidocaine (XYLOCAINE) 20 mg/mL (2 %) injection 400 mg 400 mg (20 mL), Subcutaneous, ONCE, 1 dose, On Fri07/10/20 at 1145, EP (Intra-Procedure), Routine Given 07/10/2020 11:00 AM EDT 400 mg lisinopriL (Prinivil;Zestril) tablet 2.5 mg 2.5 mg, Oral, DAILY, First dose on Fri07/11/20 at 0900, Until Discontinued, Routine Given 07/11/2020 9:02 AM E DT 2.5 mg metoprolol succinate XL (Toprol-XL) tablet 100 mg 100 mg, Oral, DAILY, First dose on Fri07/10/20 at 1930, Until Discontinued, DO NOT CRUSH OR OPEN, Routine Given 07/11/2020 9:02 AM EDT 100 mg Given 07/10/2020 9:33 PM EDT 100 mg pantoprazole EC (Protonix) tablet 40 mg 40 mg, Oral, 2 TIMES DAILY, First dose on Fri07/10/20 at 2100, Until Discontinued, DO NOT CRUSH OR OPEN, Routine Given 07/11/2020 9:02 AM EDT 40 mg Given 07/10/2020 9:33 PM EDT 40 mg sodium chloride 0.9 % (flush) flush 5 mL 5 mL, Intravenous, 2 TIMES DAILY, First dose on Fri07/10/20 at 2100, Until Discontinued, Recovery (Recovery-Hospital Unit), Routine Given 07/10/2020 9:40 PM EDT 5 mLs documented in this encounter Active and Recently Administered Medications Times are shown in EDT. Scheduled Medication Order 07/09/2020 07/10/2020 07/11/2020 apixaban (Eliquis) tablet 5 mg 5 mg, Oral, 2 TIMES DAILY, First dose on Fri07/10/20 at 2100, Until Discontinued, Anticoagulant, Routine, Restricted anticoagulant, choose the most appropriate response: Continuation of ongoing therapy 2132 (Given - Provider: Justa Rider RN) 0900 (Given - Provider: Kati Edmonds RN) aspirin EC tablet 81 mg 81 mg, Oral, DAILY, First dose on Fri07/11/20 at 0900, Until Discontinued, Routine 901 (Given - Provid er: Kati Edmonds RN) atorvastatin (Lipitor) tablet 80 mg 80 mg, Oral, EVERY EVENING, First dose on Fri07/10/20 at 1930, Until Discontinued, Routine 2132 (Given - Provider: Justa Rider RN) BUpivacaine (PF) (MARCAINE) 0.5 % (5 mg/mL) injection 150 mg (COMPLETED) 150 mg (30 mL), Subcutaneous, ONCE, 1 dose, On Fri07/10/20 at 1145, EP (Intra-Procedure), Routine 1100 (Given - Provider: Lay Becker RN) hydroCHLOROthiazide (Hydrodiuril) tablet 12.5 mg 12.5 mg, Oral, DAILY, First dose on Fri07/10/20 at 1930, Until Discontinued, Routine 2132 (Given - Provider: Justa Rider RN) 09 (Given - Provider: Kati Edmonds RN) lamoTRIgine (LaMICtal) tablet 200 mg 200 mg, Oral, DAILY, First dose on Fri07/10/20 at 1930, Until Discontinued, Routine 2131 (Given - Provider: Justa Rider RN) 09 (Given - Provider: Kati Edmonds RN) lidocaine ((GLYDO)) 2 % gel 10 mL (COMPLETED) 10 mL, INTRA-URETHRAL, ONCE, 1 dose, On Fri07/10/20 at 1145, EP (Intra-Procedure), Routine 1040 (Given - Provider: Lay Becker RN) lidocaine (XYLOCAINE) 20 mg/mL (2 %) injection 400 mg (COMPLETED) 400 mg (20 mL), Subcutaneous, ONCE, 1 dose, On Fri07/10/20 at 1145, EP (Intra-Procedure), Routine 1100 (Given - Provider: Lay Becker RN) lisinopriL (Prinivil;Zestril) tablet 2.5 mg 2.5 mg, Oral, DAILY, First dose on Fri07/11/20 at 0900, Until Discontinued, Routine 901 (Given - Provid er: Kati Edmonds RN) metoprolol succinate XL (Toprol-XL) tablet 100 mg 100 mg, Oral, DAILY, First dose on Fri07/10/20 at 1930, Until Discontinued, DO NOT CRUSH OR OPEN, Routine 2132 (Given - Provider: Justa Rider RN) 901 (Given - Provider: Kati Edmonds, FLAVIA) pantoprazole EC (Protonix) tablet 40 mg 40 mg, Oral, 2 TIMES DAILY, First dose on Fri07/10/20 at 2100, Until Discontinued, DO NOT CRUSH OR OPEN, Routine 2132 (Given - Provider: Justa Rider RN) 901 (Given - Provider: Kati Edmonds RN) sodium chloride 0.9 % (flush) flush 5 mL 5 mL, Intravenous, 2 TIMES DAILY, First dose on Fri07/10/20 at 2100, Until Discontinued, Recovery (Recovery-Hospital Unit), Routine 2139 (Given - Provider: Justa Rider RN) 09 (Canceled Entry - Provider: Kati Edmonds RN - Reason: Contraindicated) Continuous Medication Order 07/09/2020 07/10/2020 07/11/2020 lactated ringers infusion (CANCELED) 1,000 mL, at 100 mL/hr, Intravenous, CONTINUOUS, Starting on Fri07/10/20 at 0815, Until Fri07/10/20 at 1821, Day of Surgery (Day of Procedure) 0823 (New Bag - Provider: Kinga Hathaway RN) lactated ringers infusion (CANCELED) 1,000 mL, at 100 mL/hr, Intravenous, CONTINUOUS, Starting on Fri07/10/20 at 1700, Until Fri07/10/20 at 1821, PACU Recovery 1656 (Continued Bag - Provid er: Autumn Dobson RN) PRN Medication Order 07/09/2020 07/10/2020 07/11/2020 acetaminophen (Tylenol) tablet 650 mg 650 mg, Oral, EVERY 6 HOURS PRN, Starting on Fri07/10/20 at 1631, Until Fri07/11/20 at 1335, Pain, Maximum dose of acetaminophen is 4000 mg from all sources in 24 hours. When ordered for pain, acetaminophen should be given even when other ordered pain medications are indicated. , Routine 0425 (Given - Provid er: Justa Rider RN) clonazePAM (KlonoPIN) tablet 1 mg 1 mg, Oral, 2 TIMES DAILY PRN, Starting on Fri07/10/20 at 1631, Until Fri07/11/20 at 1335, Anxiety, DO NOT SPLIT, CRUSH OR OPEN, Routine 2137 (Given - Provider: Justa Rider RN) 0906 (Given - Provider: Kati Edmonds RN) HYDROmorphone (DILAUDID) injection 0.4-0.6 mg (CANCELED) 0.4-0.6 mg, Intravenous, EVERY 5 MIN PRN, Starting on Fri07/10/20 at 1630, Until Fri07/10/20 at 1821, Pain, Give 0.4 mg every 5 minutes PRN for mild to moderate pain (1-5) Give 0.6 mg every 5 minutes PRN for moderate to severe pain (6-10). Hold for respiratory rate less than 10 per minute. Maximum dose 4 mg over one hour. If multiple pain medications are ordered, start with hydromorphone or morphine and use fentanyl for breakthrough pain., PACU Recovery, Routine 1655 (Given - Provider: Autumn Dobson RN)1709 (Given - Provider: Autumn Dobson RN)1735 (Given - Provider: Autumn Dobson RN) lidocaine (XYLOCAINE) 10 mg/mL (1 %) injection 3 mg (COMPLETED) 3 mg (0.3 mL), Subcutaneous, ONCE PRN, 1 dose, Starting on Fri07/10/20 at 0756, Until Fri07/10/20 at 0823, for discomfort with PIV insertion, Day of Surgery (Day of Procedure), Routine 0823 (Given - Provider: Kinga Hathaway RN) lidocaine (XYLOCAINE) 10 mg/mL (1 %) injection 3 mg 3 mg (0.3 mL), Subcutaneous, ONCE PRN, 1 dose, Starting on Fri07/10/20 at 1843, Until Fri07/11/20 at 1335, for discomfort with PIV insertion, Recovery (Recovery-Hospital Unit), Routine nitroGLYcerin (Nitrostat) disintegrating tablet 0.4 mg 0.4 mg, Sublingual, EVERY 5 MIN PRN, Starting on Fri07/10/20 at 1843, Until Fri07/11/20 at 1335, Chest pain, SL nitroglycerin may be repeated every 5 minutes as needed up to 3 doses, Routine sodium chloride 0.9 % (flush) flush 5-20 mL 5-20 mL, Intravenous, EVERY 1 MIN PRN, Starting on Fri07/10/20 at 1843, Until Fri07/11/20 at 1335, flush, Flush pertains to all indwelling lines. Flush per protocol found in the job aid using the link provided on this medication record., Recovery (Recovery-Hospital Unit), Routine documented in this encounter Care Teams Life Tester [employer] Relationship Specialty Start Date End Date Bin Bowman MD [address] [place] [phone] PCP - General General Internal Medicine 04/21/1707/11 documented as of this encounter
--- OUTSIDE RECORDS SUMMARY | 2024-06-04 20:47 | XMS_ITS | Encounter Summary ---
Author Organization [facility] Address [facility] [place] [address] Care Team Providers Care Sales Engineer [employer] Name Role Phone Bin Bowman MD Primary Care Provider [phone] Encounter Details Date Type Department Care Team (Late st Contact Info) Description 06/27/2018 Telephone Cardiology at [address] [phone] Joss De Anda MD [facility] [address] CARDIOLOGY [place] [address] Social History Tobacco Use Types Packs/Day Years [...] Miscellaneous Notes * Telephone Encounter - Joss De Anda - 06/27/2018 12:32 PM EDT Telephone Triage Note Initial Contact Date: 06/27/18 Initial contact time: 1230h Referring Provider: Bubba Patient Location: [facility] Presenting Symptoms per OSH: Palpitations, fluttering x 6 minutes, 2-3 times this AM. Last happened at 1000h Ruled out multiple times for atypical cp Past Medical History: STEMI in 07/2017, OM1 PCI. Other vessels normal Cholelithiasis, planned surgery Isch CDM, EF 60%, wmas in cx territory Pertinent Diagnostic Findings: Vitals: BP 123/75 HR 75 SaO2 RA EKG : NSR without ischemic changes Troponin : 0.09 (ULN 0.06) CXR: no acute disease CMP, CBC: nl No ectopy there OSH Interventions: none Assessment: Perhaps tachyarrhythmia caused the fluttering; however, would be too short to cause biomarker elevation. Thus, biomarker of unclear significant, in setting of atypical symptoms and ischemically blandekg. Plan: Repeat troponin Call back when resulted/further symptoms documented in this encounter Plan of Treatment Upcoming Encounters Date Type Department Care Team (Latest Contact Info) Description 06/07/2024 2:00 PM EDT Office Visit [place] [address] Joan Castro MD [facility] [place] [address] 06/11/2024 1:03 PM EDT Hospital Encounter [place] [phone] Rachel Carrasco MD [facility] [place] [address] 06/11/2024 1:03 PM EDT - 06/11/2024 1:58 PM EDT Surgery [place] [phone] Rachel Carrasco MD [facility] [place] [address] CYSTO, REMOVAL OF STENT, FOREIGN BODY OR CALCULUS, SIMPLE (WRVU 2.81) 06/23/2024 10:00 AM EDT Office Visit Cardiology at [address] [address] Mo Horne MD [facility] [place] [address] Scheduled Procedures Name Priority Associated Diagnoses Date/Ti me CYSTO, REMOVAL OF STENT, FOR EIGN BODY OR CALCULUS, SIMPLE (WRVU 2.81) NEPHROLITHIASIS 06/11/2024 1:03 PM EDT documented as of this encounter Visit Diagnoses Not on filedocumented in this encounter Care Teams Sales Engineer [employer] Relationship Specialty Start Date End Date Bin Bowman MD [address] [place] [id number] PCP - General General Internal Medicine 04/21/1707/11 documented as of this encounter
--- OUTSIDE RECORDS SUMMARY | 2024-06-04 20:47 | XMS_ITS | Encounter Summary ---
Author Organization [facility] Address [facility] [place] [address] Care Team Providers Care Group Leader [employer] Name Role Phone Bin Bowman MD Primary Care Provider [phone] Encounter Details Date Type Department Care Team (Latest Contact Info) Description 06/05/2020 10:08 AM EDT - 06/05/2020 11:59 PM EDT Hospital Encounter Non-[place]vasive [place] [address] Fadi Escobar MD [facility] [place] [address] Heart palpitations Discharge Disposition: Home Social History Tobacco Use [...] Sustained Release 24 hrIndications:Coronary artery disease involving [place] coronary artery of [place] heart without angina pectoris,Essential hypertension,Heart palpitations Take 1 tablet by mouth daily. 90 tablet 1 05/26/2020 07/11/2020 clindamycin (CLINDAGEL) 1 % Gel APPLY TOPICALLY [...] 2:00 PM EDT Office [place] [address] Joan Castro MD [facility] [place] [address] 06/11/2024 1:03 PM EDT Hospital Encounter [place] [phone] Rachel Carrasco MD [facility] [place] [place] [address] 06/11/2024 1:03 PM EDT - 06/11/2024 1:58 PM EDT Surgery [place] [address] Rachel Carrasco MD [facility] [place] [address] CYSTO, REMOVAL OF STENT, FOREIGN BODY OR CALCULUS, SIMPLE (WRVU 2.81) 06/23/2024 10:00 AM EDT Office Visit Cardiology at [address] [place] [address] Mo Horne MD [facility] [place] [address] Pending Results Name Type Priority Associated Diagnoses Date /Time Holter Monitor 48hr Cardiac Services Routine Heart palpitations 06/05/2020 10:44 AM EDT Scheduled Orders Name Type Priority Associated Diagnoses Orde r Schedule Holter Monitor 48hr Cardiac Services Routine Heart palpitations 1 Occurrences starting 06/05/2020 until 06/05/2020 Scheduled Procedures Name Priority Associated Diagnoses Date/Ti me CYSTO, REMOVAL OF STENT, FOR EIGN BODY OR CALCULUS, SIMPLE (WRVU 2.81) NEPHROLITHIASIS 06/11/2024 1:03 PM EDT documented as of this encounter Visit Diagnoses Diagnosis Heart palpitations Palpitations documented in this encounter Care Teams Group Leader [employer] Processing Relationship Specialty Start Date End Date Bin Bowman MD [address] [place] [phone] PCP - General General Internal Medicine 04/21/1707/11 documented as of this encounter
--- OUTSIDE RECORDS SUMMARY | 2024-06-04 20:47 | XMS_ITS | Encounter Summary ---
Author Organization [facility] Address [facility] [place] [address] Care Team Providers Care Packer Name Role Phone Bin Bowman MD Primary Care Provider [phone] Reason for Visit * Consultation (Routine) - Closed Specialty Diagnoses / Procedures Referred By Zeyad mishra Referred To Contact General Surgery Diagnoses Upper abdominal pain Breonna Ambrocio, REPAIR CAMERAMAN [address] [place] [address] [facility] [place] [address] Referral ID Status Reason Start Date Expiration Date V isits Requested Visits Authorized [id number] Closed Consult, Test & Treat 02/20/2018 02/20/2019 1 1 Encounter Details Date Type Department Care Team (Late st Contact Info) Description 03/18/2018 8:00 AM EDT Office [place] [address] [facility] [place] [address] Biliary colic Social History Tobacco Use Types Packs/Day Years [...] Sign Reading Time Taken Comments Blood Pressure 122/78 03/18/2018 7:44 AM EDT Pulse 62 03/18/2018 7:44 AM EDT Temperature 36.6 ??C (97.9 ??F) 03/18/2018 7:44 AM ED T Respiratory Rate 12 03/18/2018 7:44 AM EDT Oxygen Saturation 100% 03/18/2018 7:44 AM EDT Inhaled Oxygen Concentration - - Weight 143.6 kg (316 lb 9.6 oz) 03/18/2018 7:44 AM EDT Height 167.6 cm (5' 6) 03/18/2018 7:44 AM EDT Body Mass Index 51.1 03/18/2018 7:44 AM EDT documented in this encounter Progress Notes * Colt Hewitt MD - 03/18/2018 8:00 AM EDT Patient is a 47-year-old gentleman referred to me for possible cholecystectomy. He is someone that has had a past history significant for a AL with cardiac stents and is currently on Plavix this happened last July. He currently would be required to be on Plavix for a year as the normal recommendation. More recently he has been having recurrent episodes of epigastric abdominal pain with radiation to his right upper quadrant around to the back. He had previous ultrasound which showed sludge more recently he has had a HIDA scan which showed an ejection fraction of 8%. As I speak with him today he states that nearly any food will get some significant abdominal pain and as result he has been avoiding eating as much as practical and has lost significant weight during this timeframe [id number] pounds. However he still remains morbidly obese with a BMI of 51. I spent 40 minutes with patient today along with his significant other entire time in [id number] conversation regarding pathophysiology of gallstones as well as risks and benefits of surgery. I think given the symptomatic nature of his gallbladder I would advocate for laparoscopic cholecystectomy. It be critical that he is compliant with the low-fat preop diet in order to minimize the impact of fatty liver on exposure in the gallbladder anatomy. And I clearly stressed to him that if he was noncompliant with the diet were not able to proceed safely I would abandon attempts to proceed with surgery that day as converting open in those situations is no less risky. I also mentioned risks to include infection possibility ofbleeding requiring transfusion possible injury to bile duct intestine and a roughly 2% chance of having to convert to the open surgery due to gallbladder scarring fibrosis and inflammation. His is going to contact his checkering machine operator and review timing of surgery to see whether we can move that upfrom the July timeframe. She will contact my office if if she gets clearance for that otherwise we will give him a tentative date for July per cardiology's recommendations. Overall he seemsunderstand and would like to proceed we will give him a tentative date for July for laparoscopic cholecystectomy and possible liver biopsy depending on what we see at the time as most assuredly has a component of fatty liver infiltration. documented in this encounter Miscellaneous Notes * Addendum Note - Abram Angel MD - 03/18/2018 10:30 AM EDTAddended by: ABRAM ANGEL on: 03/18/2018 10:30 AM Modules accepted: Orders documented in this encounter Plan of Treatment Upcoming Encounters Date Type Department Care Team (Latest Contact Info) Description 06/07/2024 2:00 PM EDT Office Visit [place] [address] [facility] [place] [address] 06/11/2024 1:03 PM EDT Hospital Encounter [place] [phone] [facility] [place] [address] 06/11/2024 1:03 PM EDT - 06/11/2024 1:58 PM EDT [place] [address] [facility] [place] [address] CYSTO, REMOVAL OF STENT, FOREIGN BODY OR CALCULUS, SIMPLE (WRVU 2.81) 06/23/2024 10:00 AM EDT Office Visit Cardiology at [address] [address] [address] [facility] [place] [address] Scheduled Procedures Name Priority Associated Diagnoses Date/Ti me CYSTO, REMOVAL OF STENT, FOR EIGN BODY OR CALCULUS, SIMPLE (WRVU 2.81) NEPHROLITHIASIS 06/11/2024 1:03 PM EDT documented as of this encounter Procedures Procedure Name Priority Date/Time Associated Diagnosis Comments AMB REFERRAL TO GENERAL SURGERY Routine 03/18/2018 9:00 AM EDT Upper abdominal pain documented in this encounter Visit Diagnoses Diagnosis Biliary colic Calculus of gallbladder without mention of cholecystitis or obstruction documented in this encounter Care Teams Packer Relationship Specialty Start Date End Date Bin Bowman MD [address] [place] [id number] PCP - General General Internal Medicine 04/21/1707/11 documented as of this encounter
--- OUTSIDE RECORDS SUMMARY | 2024-06-04 20:47 | XMS_ITS | Encounter Summary ---
Author Organization [facility] [place] [address] Care Team Providers Care Fitter Hand Name Role Phone Bin Bowman MD Primary Care Provider Reason for Visit * Reason Comments Medication Refill Encounter Details Date Type Department Care Team (Late st Contact Info) Description 06/27/2018 Refill [place] [phone] Hawk Coker DO [facility] DR HEMATOLOGY/[place] [address] Social History Tobacco Use Types Packs/Day Years [...] Office Visit [place] [phone] Joan Castro MD [facility] [place] [address] 06/11/2024 1:03 PM EDT Hospital Encounter [place] [address] Rachel Carrasco MD [facility] [place] [address] 06/11/2024 1:03 PM EDT - 06/11/2024 1:58 PM EDT Surgery [place] [phone] Rachel Carrasco MD [facility] [place] [address] CYSTO, REMOVAL OF STENT, FOREIGN BODY OR CALCULUS, SIMPLE (WRVU 2.81) 06/23/2024 10:00 AM EDT Office Visit Cardiology at [address] [place] [address] Mo Horne MD [facility] [place] [address] Scheduled Procedures Name Priority Associated Diagnoses Date/Ti me CYSTO, REMOVAL OF STENT, FOR EIGN BODY OR CALCULUS, SIMPLE (WRVU 2.81) NEPHROLITHIASIS 06/11/2024 1:03 PM EDT documented as of this encounter Visit Diagnoses Not on filedocumented in this encounter Care Teams Fitter Hand Relationship Specialty Start Date End Date Bin Bowman MD [address] [place] [id number] PCP - General General Internal Medicine 04/21/1707/11 documented as of this encounter
--- OUTSIDE RECORDS SUMMARY | 2024-06-04 20:47 | XMS_ITS | Encounter Summary ---
[place] [address] Care Team Providers Care Retail Client Solutions Consultant Name Role Phone Bin Bowman MD Primary Care Provider Encounter Details Date Type Department Care Team (Late st Contact Info) Description 06/05/2018 Telephone Cardiology at [address] [address] Adrianne, Rachana L, [facility] [address] Social History Tobacco Use Types Packs/Day Years [...] encounter Miscellaneous Notes * Telephone Encounter - Adrianne Rachana Chaves - 06/05/2018 8:15 PM EDT Telephone Consult Note Initial Contact Date: 06/05/2018 Referring Provider: Chavo Deleon MD Patient Location: [facility] Presenting Symptoms per OSH: Rolo Aguilar is a 47 y.o. male with past medical history significant for HTN, HLD, GERD, morbid obesity, depression, bipolar, and inferior STEMI in 07/2017 who presented to [facility] with complaints of epigastric pain and nausea with some associated shoulder and back pain. The patient has chronic epigastric pain and nausea related to gallbladder disease. He is awaiting cholecystectomy in July (once he is done with 1 year of DAPT s/p his PR). The symptoms feel similar today to his chronic pain although are slightly worse. The pain has been constant since 10:30 AM. No chest pain, no shortness of breath, no diaphoresis. This pain does not feel similar to his pain with his prior PR. His back and shoulder pain is reproducible. The OSH provider suspects that his pain is not cardiac in etiology, particularly in the setting of a negative troponin after 10+ hours of pain at this time. However, he is requesting review of his EKG. EKG is significant for evidence of prior inferior infarct. There are some small ST depressions in the anterior leads. Upon review of other EKGs, this has been present previously and overall his EKG does appear unchanged. He has been taking his DAPT without missing dosing. Discussed with OSH provider that it may be worthwhile to monitor him in the ED, do serial EKGs and perhaps an additional troponin for reassurance that this is his chronic abdominal pain. He is planning on doing this. He will call with any further questions. Vitals: BP 151/79 HR 81 R 18 99% on RA Afebrile documented in this encounter Plan of Treatment Upcoming Encounters Date Type Department Care Team (Latest Contact Info) Description 06/07/2024 2:00 PM EDT Office [place] [phone] Joan Castro MD [facility] [place] [address] 06/11/2024 1:03 PM EDT Hospital Encounter [place] [phone] Rachel Carrasco MD [facility] [address] 06/11/2024 1:03 PM EDT - 06/11/2024 1:58 PM EDT Surgery [place] [address] Rachel Carrasco MD [facility] [place] [address] CYSTO, REMOVAL OF STENT, FOREIGN BODY OR CALCULUS, SIMPLE (WRVU 2.81) 06/23/2024 10:00 AM EDT Office Visit Cardiology at [address] [place] [phone] Mo Horne MD [facility] [place] [address] Scheduled Procedures Name Priority Associated Diagnoses Date/Ti me CYSTO, REMOVAL OF STENT, FOR EIGN BODY OR CALCULUS, SIMPLE (WRVU 2.81) NEPHROLITHIASIS 06/11/2024 1:03 PM EDT documented as of this encounter Visit Diagnoses Not on filedocumented in this encounter Care Teams Retail Client Solutions Consultant Relationship Specialty Start Date End Date Bin Bowman MD [address] [place] [id number] PCP - General General Internal Medicine 04/21/1707/11 documented as of this encounter
--- OUTSIDE RECORDS SUMMARY | 2024-06-04 20:47 | XMS_ITS | Encounter Summary ---
[place] [address] Care Team Providers Care Ceramic Designer Name Role Phone Bin Bowman MD Primary Care Provider [phone] Encounter Details Date Type Department Care Team (Late st Contact Info) Description 06/07/2020 Telephone Cardiology at [address] [address] Fady Lord RN Social History Tobacco Use [...] Telephone Encounter - Fady Lord RN - 06/07/2020 10:04 AM EDT TC to patient who is going to reach out to his general wheel aligner Dr. Culver to assist with replacing the holter monitor on. Pt aware to reach out to clinic with any questions or concerns. * Telephone Encounter - Fady Lord RN - 06/07/2020 10:03 AM EDT ----- Message from Rolo Aguilar sent at 06/07/2020 9:52 AM EDT ----- Regarding: RE:Monitor Contact: I came there on Friday. Can Dr. Culver have someone do it at his office in [place]? documented in this encounter Plan of Treatment Upcoming Encounters Date Type Department Care Team (Latest Contact Info) Description 06/07/2024 2:00 PM EDT Office [place] [phone] [facility] [place] [address] 06/11/2024 1:03 PM EDT Hospital Encounter Main Operating Room [place] [phone] [facility] [place] [address] 06/11/2024 1:03 PM EDT - 06/11/2024 1:58 PM EDT Surgery Main Operating Room [place] [phone] [facility] [place] [address] CYSTO, REMOVAL OF STENT, FOREIGN BODY OR CALCULUS, SIMPLE (WRVU 2.81) 06/23/2024 10:00 AM EDT Office Visit Cardiology at [address] [address] [facility] [place] [address] Scheduled Procedures Name Priority Associated Diagnoses Date/Ti me CYSTO, REMOVAL OF STENT, FOR EIGN BODY OR CALCULUS, SIMPLE (WRVU 2.81) NEPHROLITHIASIS 06/11/2024 1:03 PM EDT documented as of this encounter Visit Diagnoses Not on filedocumented in this encounter Care Teams Ceramic Designer Relationship Specialty Start Date End Date Bin Bowman MD [address] [place] [address] PCP - General General Internal Medicine 04/21/1707/11 documented as of this encounter
--- OUTSIDE RECORDS SUMMARY | 2024-06-04 20:47 | XMS_ITS | Encounter Summary ---
Author Organization [facility] [place] [address] Care Team Providers Care City Assessor Name Role Phone Bin Bowman MD Primary Care Provider [phone] Encounter Details Date Type Department Care Team (Late st Contact Info) Description 06/27/2018 External Results [address] [place] [address] Social History Tobacco Use Types [...] 2:00 PM EDT Office Visit [place] [address] Joan Castro MD [facility] [place] [address] 06/11/2024 1:03 PM EDT Hospital Encounter [place] [address] Rachel Carrasco MD [facility] [place] [address] 06/11/2024 1:03 PM EDT - 06/11/2024 1:58 PM EDT Surgery Main Operating Room [facility] [place] [address] Rachel Carrasco MD [facility] [place] [address] CYSTO, REMOVAL OF STENT, FOREIGN BODY OR CALCULUS, SIMPLE (WRVU 2.81) 06/23/2024 10:00 AM EDT Office Visit Cardiology at [address] [address] Mo Horne MD [facility] [place] [address] Scheduled Procedures Name Priority Associated Diagnoses Date/Ti me CYSTO, REMOVAL OF STENT, FOR EIGN BODY OR CALCULUS, SIMPLE (WRVU 2.81) NEPHROLITHIASIS 06/11/2024 1:03 PM EDT documented as of this encounter Procedures Procedure Name Priority Date/Time Associated Diagnosis Comments ECG SCAN Routine 06/27/2018 documented in this encounter Results * Scan Doc: ECG (06/27/2018) Historical Provider MD WILL[facility]SON MGR SCAN EX T ORDR/RSLT documented in this encounter Visit Diagnoses Not on filedocumented in this encounter Care Teams City Assessor Relationship Specialty Start Date End Date Bin Bowman MD [address] [place] [id number] PCP - General General Internal Medicine 04/21/1707/11 documented as of this encounter
--- OUTSIDE RECORDS SUMMARY | 2024-06-04 20:47 | XMS_ITS | Encounter Summary ---
Author Organization [facility] [place] [address] Care Team Providers Care Manufacturing Controller Name Role Phone Bin Bowman MD Primary Care Provider [phone] Encounter Details Date Type Department Care Team (Late st Contact Info) Description 05/07/2020 Telephone Cardiology at [address] [address] Paul Asher [facility] [place] [address] Social History Tobacco Use Types Packs/Day Years [...] Telephone Encounter - Paul Asher DO - 05/07/2020 2:34 AM EDT Phone call: Request for Patient transfer or consultation Requesting physician: Dr. Coello Location: [facility] Indication for transfer request: AF Pertinent clinical details: HPI: 49 yo male with a hx of CAD s/p STEMI in 07/2017 s/p EMMY to OM1, EF 60%, HTN, HLD, presented severaltimes with palpitations always with normal EKG. 10 days ago presented to ED with tachycardia, thought to be SVT but did not respond to adenosine and ultimately required DCCV. Came back to ED yesterday afternoon with AF w/ RVR and received Metoprolol 5mg IV x 3 and IV fluidsand converted back to NSR and was discharged home. He then came back in this evening with AF w/ RVR. He received another 15mg of IV metoprolol in split doses but did not convert so ~ 1 hr later he was bolused with 20mg of IV dilt -> rates came down to 90-100s. The then had an episode where felt lightheaded and dizzy, had ~5-6 second pause and then converted to sinus. Now in sinus rhythm w/ HR in the 80s. Home medications are metoprolol 75mg QD He is not anticoagulated, only on ASA 81mg QD Vitals: HR in the 80s, BP: 130/80s Labs: Troponin: negative BMP and CBC unremarkable Assessment/Recs: 49 yo male with difficult to control AF, likely warrants rhythm control strategy. Pause was in the setting of extensive AV florencia blocking agents and AF w/ RVR so worry about that is low. Pt is on lower dose of metoprolol at home. Recommended watching pt overnight and increasing metoprolol dose to metop succinate 75mg BID, if he tolerates this f/u as outpatient for discussion of an tiarrythmic plan. Paul Asher DO Art Framing Manager, PGY-4 05/07/2020 documented in this encounter Plan of Treatment Upcoming Encounters Date Type Department Care Team (Latest Contact Info) Description 06/07/2024 2:00 PM EDT Office [place] [phone] Joan Castro MD [facility] [place] [address] 06/11/2024 1:03 PM EDT Hospital Encounter [place] [address] Rachel Carrasco MD [facility] [place] [address] 06/11/2024 1:03 PM EDT - 06/11/2024 1:58 PM EDT Surgery [place] [phone] Rachel Carrasco MD [facility] [place] [address] CYSTO, REMOVAL OF STENT, FOREIGN BODY OR CALCULUS, SIMPLE (WRVU 2.81) 06/23/2024 10:00 AM EDT Office Visit Cardiology at [address] [address] Mo Horne MD [facility] [place] [address] Scheduled Procedures Name Priority Associated Diagnoses Date/Ti me CYSTO, REMOVAL OF STENT, FOR EIGN BODY OR CALCULUS, SIMPLE (WRVU 2.81) NEPHROLITHIASIS 06/11/2024 1:03 PM EDT documented as of this encounter Visit Diagnoses Not on filedocumented in this encounter Care Teams Manufacturing Controller Relationship Specialty Start Date End Date Bin Bowman MD [address] [place] [id number] PCP - General General Internal Medicine 04/21/1707/11 documented as of this encounter
--- OUTSIDE RECORDS SUMMARY | 2024-06-04 20:47 | XMS_ITS | Encounter Summary ---
Author Organization [facility] Address [facility] [place] [address] Care Team Providers Care Network Operations Specialist Name Role Phone Bin Bowman MD Primary Care Provider [phone] Reason for Visit * Consultation (Routine) - Closed Specialty Diagnoses / Procedures Referred By Contact Referred To Contact Electrophysiology / Cardiology Diagnoses atrial fibrillation Procedures atrial fibrillation Jose Culver MD [address] [place] [id number] [facility] [address] [address] [place] [phone] Referral ID Status Reason Start Date Expiration Date V isits Requested Visits Authorized [id number] Closed Consult, Test & Treat 05/09/2020 05/09/2021 1 1 Encounter Details Date Type Department Care Team (Latest Contact Info) Description 05/16/2020 2:00 PM EDT TH Visit (TeleHealth) Cardiology at [address] [phone] Fadi Escobar MD [facility] [address] SVT (supraventricular tachycardia); Atrial tachycardia; Wide-complex tachycardia Social History Tobacco Use Types Packs/Day Years [...] as of this encounter Progress Notes * Makayla Leon LNA - 05/16/2020 2:00 PM EDT I called patient and spoke with his spouse. PT is taken all Med's and is also taken Eliquis 5 mg BID, his BP today 05/15/2020 Was 110/67, HR 49, No current WT, and HT 5'7 KELLE Angelo * Fadi Escobar MD - 05/16/2020 2:00 PM EDT Cardiac Electrophysiology Telephone Visit May 16, 2020 Treasury Director: Jeremie Patton MD Primary Care Physician: Bin Bowman MD Reason for Consultation: Supraventricular tachycardia, atrial flutter/fibrillation, and wide complex tachycardia Backgound: Mr. Aguilar is a 49 year old gentleman referred by Jose Culver MD, for several recent manifestly symptomatic cardiac dysrhythmias. Mr. Aguilar had presented on April 27 to the Emergency Department in [facility] with an episode of supraventricular tachycardia (SVT) at a rateof 164/minute. He was given adenosine, and evidently reverted to a faster poorly tolerated wide complex tachycardia. In response to this, direct current cardioversion was accomplished (300 Joule applications x 3, first 2 followed by with sinus rhythm reemergence of SVT in <30 seconds, and 3rd shock preceded by intravenous metoprolol 5 mg). Approximately 1-2 weeks later, he again developed [...] monitoring,but he then remained in sinus rhythm. Over the years, he has experienced isolated or brief palpitations (during rest and relaxed periods,not in association with exertion), but it has never sustained like what occurred this past month. He explicitly noted that he experienced no anginal symptoms while in the tachycardia. He has tolerated the metoprolol succinate up to now, with the dose having been increased to 75 mg twice daily last week. Past Medical History: 1) Supraventricular tachycardia (see above) 2) Atrial tachycardia/fibrillation (see above) 3) [place] [facility] [place]EMMY of OM1) > LVEF 55-60% > Aspirin, statin, beta helen 4) Atypical chest pain (costchondritis, gastroesophageal reflux) 5) Hypertension 6) Sleep apnea (referral made to Sleep Clinic as of April 2020)) 7) Morbid obesity 8) Bipolar disorder with anxiety 9) RICARDO 0) S/p surgeries > Tonsillectomy > Cholecystectomy? Allergies & Sensitivities: Gabapentin; Wellbutrin [bupropion hcl]; and Zoloft [sertraline] Medications: 1) Metoprolol succinate 75 mg twice daily (increased from 50 mg ? 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 No recent progressive angina. Remainder of review of systems was unremarkable, other than as noted in the present history, and in the clinic note by Dr. Culver on May 07, 2020. Tests: Stress Imaging (March 14, 2019; [facility]): Moderate size severely intense fixed inferolateral defect. [...] Electrocardiogram (April 27, 2020): Sinus rhythm 82/minute, WV 156 m, QRS duration 102 ms, QTc 416 ms, old inferior infarction. Assessment: Mr. Aguilar has presented with multiple symptomatic dysrhythmias recently. I yet don't have all of the relevant rhythm strips, but the ones that I have confirm this. Though he is on metoprolol now, a Zio monitor would be useful to document his present baseline, but ultimately it is clear that he likely would benefit from a mapping and ablation procedure. This better could facilitate elucidating the mechanisms of his dysrhythmias (supraventricular tachycardia, atrial tachycardia/flutter, wide complex tachycardia, propensity for atrial fibrillation). I agree with the use of metoprolol as a first step, which is in the absence of any findings of antegrade pre-excitation (the wide complex tachycardia notwithstanding), and I recommended increasing the dose to 100 mg twice daily from the 75 mg twice daily that he has been on for the past week. I discussed the nature of the electrophysiology procedure, [...] of that if it is the case. I answered all of his questions. I also encouraged him to continue with the anticoagulation (apixaban) until holding doses ~1 day prior to his planned procedure. Recommendations: 1) Increase metoprolol succinate to 100 mg twice daily from 75 mg twice daily 2) Zio monitor to be worn 3) Continue apixaban 5 mg twice daily (hold 24 hours prior to planned invasive procedure) 4) To be arranged: Diagnostic electrophysiology study, mapping, and ablation (procedure orders written) > Performed with support of Anesthesiology Service > CARTO electroanatomic mapping > Thermocool ablation catheter > Hold metoprolol dose AM of the procedure 5) Request for tracing of the wide complex tachycardia elicited s/p adenosine dose during supraventricular tachycardia (if available). ____ documented in this encounter Plan of Treatment Upcoming Encounters Date Type Department Care Team (Latest Contact Info) Description 06/07/2024 2:00 PM EDT Office [place] [phone] Joan Castro MD [facility] [place] [address] 06/11/2024 1:03 PM EDT Hospital Encounter [place] [phone] Rachel Cararsco MD [facility] [place] [address] 06/11/2024 1:03 PM EDT - 06/11/2024 1:58 PM EDT Surgery [place] [phone] Rachel Carrasco MD [facility] [place] [address] CYSTO, REMOVAL OF STENT, FOREIGN BODY OR CALCULUS, SIMPLE (WRVU 2.81) 06/23/2024 10:00 AM EDT Office Visit Cardiology at [address] [phone] Mo Horne MD [facility] [address] Scheduled Procedures Name Priority Associated Diagnoses Date/Ti me CYSTO, REMOVAL OF STENT, FOR EIGN BODY OR CALCULUS, SIMPLE (WRVU 2.81) NEPHROLITHIASIS 06/11/2024 1:03 PM EDT documented as of this encounter Procedures Procedure Name Priority Date/Time Associated Diagnosis Comments ELECTROPHYSIOLOGY PROCEDURE Routine 07/10/2020 4:17 PM EDT SVT (supraventricular tachycardia) Atrial tachycardia Wide-complex tachycardia documented in this encounter Results * ELECTROPHYSIOLOGY PROCEDURE (07/10/2020 4:17 PM EDT) Anatomical Region Laterality Modality Other Narrative 07/15/2020 2:46 PM EDT Comprehensive Electrophysiology Evaluation, Mapping, and Radiofrequency Ablation of Atrioventricular Florencia Reciprocating Tachycardiaand Cavotricuspid Isthmus Dependent Atrial Flutter Indication: ?? Recurrent symptomatic palpitations corresponding intermittently to narrow complex tachycardia with [id number] RP interval, documented sustained wide complex tachycardia on telemetry (concern for supraventricular tachycardia ithw aberrancy versus ventricular tachycardia in setting of prior myocardial infarction), and suspected atrial tachycardia/flutter alternating with documented atrial fibrillation. Operators: ?Lawrence Brar MD (Fellow) ?Fadi Escobar MD (Attending) Anesthesia: ?? General Anesthesia Care was provided by anesthesia consult service (see separate note). Procedure: ?After a discussion with the patient about the planned procedure (with contingencies) and after confirmation of his informed consent, the patient was brought to the biplane Electrophysiology Laboratory in the fasting state; he had been off his anticoagulation for the 3 days leading up to this procedure, and also metoprolol 200 mg daily was withheld the day prior to this procedure. A time-out was accomplished. Continuous electrocardiographic monitoring was instituted. General Anesthesia Care was provided by anesthesia consult service (see separate note). The right femoral region and the right base of the neck were prepared and draped in the usual sterile manner. Local anesthesia was achieved with a 1:1 mixture of 2% lidocaine and 0.5% bupivacaine administered subcutaneously. Using ultrasound venography for guidance, the following hemostatic sheaths (all with sidearms and flushed) were inserted utilizing a modified Seldinger technique. Electrode catheters were positioned under fluoroscopic guidance as follows: Sheath ?? Catheter ??Electrodes ??Insertion Site ?? Target ?8 Fr ? 6 Fr ? 10 ?Rt int jugular ?? Coronary sinus (CS) ?5 Fr ? 5 Fr ?4 ?Rt femoral vein ??Rt ventricle & high atrium ?8 Fr ? 7 Fr ? Rt femoral vein ??Mapping/Ablation ??6.5 Fr ? 5 Fr ? 10 ?Rt femoral vein ??His ... central venous pressure (monitored via the right internal jugular sheath side arm). ... blood pressure (monitored via radial arterial line) Programmed electrical stimulation, imaging, CARTO 3-dimensional mapping, and radiofrequency ablation were performed as detailed below and digitally archived. Assessment and Findings: 1) At baseline, the manifest rhythm was conducted sinus rhtyhm w/o pre-excitation at a cycle length of 1020 milliseconds (ms): WV: ?150 ms (P wave duration 140 ms) AH: ? 60 ms HV: ? 50 ms QRS: ?? 100 ms QT: ?410 ms 2) Atrial overdrive pacing was accomplished from the proximal coronary sinus (CS), and the atrioventricular (AV) Wenckebach block CL was observed at 330 ms. There was no pre-excitation or conduction aberrancy identified. The ecusynjz-el-WPF interval > QRS-QRS interval just prior to the observed AV Wenckebach block CL, and no echo beat was elicited. 3) Pacing was accomplished from high right ventricular septum, and 1:1 concentric ventriculo-atrial (VA) conduction was present down to a CL of 460 ms. 4) Atrial extrastimulus testing from the proximal CS was accomplished using an atrial drive train of CL 600 ms; the local atrial effective refractory period (ERP) was noted at an S2 coupling interval of 250 ms (25 mA @ 2 ms), and the AV node ERP determination was not directly observed (significant local atrial tissue conduction delay limited florencia testing). Atrial extrastimulus testing from the proximal CS also was accomplished using an atrial drive train of CL 400 ms; the atrioventricular node ERP was noted at an S2 coupling interval of 240 ms. Of note when using an S1 drive train of 400 ms was that concentric atrial echo beats were elicited at S2 coupling intervals of 300 ms down to 250 ms, and the VA time was 60 ms as measured at the proximal His bundle bipole; the inscription of the P wave on the early ST segment as noted, in that its terminal portion extended out to ~90 ms beyond the end of the associated QRS complex - this appeared to match the QRS and P wave relationship of a clinical electrocardiographic recording acquired during clinical supraventricular tachycardia in which he had presented. Single and double atrial extrastimuli into the S1 drive train of 400 ms failed to elicit more than a single conducted echo beat. 5) Ventricular extrastimulus pacing with up to triple extrastimuli was accomplished using two S1 drive trains (600 and 400 ms) from two distinct right ventricular locations (near apex and at th outflow tract). No sustained ventricular dysrhythmia was elicited despite pacing at high output (10 mA @ 2 ms) down to local ventricular refractoriness. 6) Rapid high output atrial overdrive pacing decremented down to a CL of 240 ms elicited 2 atrial re-entrant beats, and 8 atrial re-entrant beats were elicited in response to atrial pacing to a CL of 220 ms. 7) A 6 mg intravenous test bolus of adenosine was administered, which was observed to have minimal manifest effect on conduction intervals, and also there was no other obvious effect on the patient's rhythm or ventilatory parameters (no significant AH prolongation, AV conduction block, or change in ventilatory pressures). An 18 mg intravenous bolus of adenosine was administered next, but with a similar result other than for transient WV interval prolongation. A subsequent 30 mg intravenous bolus of adenosine elicited transient AV conduction block with minimal (or no) sinus rate slowing; again there was no apparent impact on ventilatory parameters. No antegrade ventricular pre-excitation was elicited. Adenosine testing during ventricular pacing also was performed. At a paced cycle length of 600 ms, concentric 1:1 VA conduction was observed; administration of 30 mg of adenosine bolus elicited transient VA conduction block. 8) Dobutamine was infused at a rate of 10 mcg/kg/minute (sinus rate increased to 88/minute after ~12-5 minutes). Atrial extrastimulus testing from the proximal CS was accomplished using an atrial drive train of CL 500 ms; the local atrial effective refractory period (ERP) was noted at an S2 coupling interval of 210 ms (25 mA @ 2 ms), and the AV node ERP determination was not directly observed. Atrial extrastimulus testing from the proximal CS also was accomplished using an atrial drive train of CL 400 ms; the local atrial effective refractory period (ERP) was noted at an S2 coupling interval of 200 ms (25 mA @ 2 ms), and the AV node ERP determination again was not directly observed. No echo beats were elicited. Atrial burst pacing also failed to elicit echo beats or other supraventricular tachycardia, as otherwise the dobutamine infusion was terminated. Rapid high output atrial overdrive pacing decremented down to a CL of 190 ms elicited 24 beats of varying atrial reentry (no reentry pacing to a CL of 200 ms). 9) As the dobutamine effect waned, additional atrial extrastimulus testing from the proximal CS (single and double extrastimuli) was accomplished in an effort to elicit dual AV node physiology, echo beats, or SVT. In limited instances, single conducted echo beats (and/or concentric pattern atrial reentrant beats) were elicited. Additional atrial burst pacing (still under the waning influence of the dobutamine infusion) also failed to elicit SVT. Similar efforts were made via pacing maneuvres from the high right atrium, but no SVT as elicited. Finally rapid high output overdrive pacing from the high right atrium was accomplished to assess for sustained atrial reentry. Pacing to a CL of 190 ms elicited 3 atrial reentrant beats, and pacing to a CL of 180 ms elicited atrial tachycardia with fibrillatory transformation prior to termination just under 1 minute later. Pacing to 180 ms again elicited similar fibrillatory atrial reentry, which terminated after 7 seconds; however, atrial reentry reemerged 12 seconds later, initiated by a spontaneous atrial ectopic beat (coupling interval as short as 360 ms at observed bipole sites). Dobutamine 5 mcg/kg/minute was infused to see if the manifest transient periods of apparent spatiotemporal organization might be sustained (underlying tachycardia CL of 225 ms at times, prior to recurring fibrillatory transformation). Eventually, the atrial reentry accelerated and became fully fibrillatory. An 18 mg intravenous bolus of adenosine further shortened the fibrillatory CLs. After that, the dobutamine infusion was terminated, and a biphasic 200 Joule direct current cardioversion (DCCV) was accomplished via an anteroposterior vector, which restored sinus rhythm at ~100/minute. Within 8 seconds, atrial fibrillation reemerged, but as the dobutamine effect waned and after the CLs lengthened, it spontaneously terminated again ~9 minutes later. 0) Efforts to elicit SVT or atrial tachycardia/flutter resumed via rapid high output atrial overdrive pacing decremented down to a CL at which atrial reentry was elicited (~200 ms). Following another 18 mg intravenous bolus of adenosine, increased atrial ectopy and atrial salvos were observed, although this failed to elicit either atrial tachycardia or atrial fibrillation. Finally, atrial pacing to a CL of 230 ms elicited (for the first time) sustained atrial tachycardia/flutter of CL 230-240 ms. Limited entrainment mapping near the inferior cavotricuspid isthmus (iCTI) resulted in a post pacing interval minimally longer than the tachycardia CL, unlike the post pacing interval observed after entrainment further into the CS. Additional entrainment pace mapping, however, terminated this tachycardia, otherwise deemed to be an iCTI dependent atrial tachycardia/flutter. It again was elicited, and iCTI dependence was confirmed. Radiofrequency Ablation: Inferior Cavotricuspid Isthmus Dependent Atrial Flutter: The tip of a CARTO Biosense ThermoCool SF 7.5 Fr ablation catheter (with bidirectional deflectable 3.5 mm tip, D and F curves) was positioned at the iCTI location for mapping and ablation with the aid of an 8.5 Fr SAFL sheath. The distal CTI was identified at a 5:30-6:00 in an JEROD orientation. Cautious ablation using 30-40 montes was accomplished from this distal site, which was extended proximally via a drag of the rove catheter tip until drop off into the towards the inferior vena cava (IVC). Appropriate impedence drops were noted throughout, following which electrogram splits of >80 ms were observd along the entire ablation trajectory. Additional ablation proximally and at the base of the Eustacian ridge also was accomplished, which then resulted in transisthmus conduction times >150 ms (bidirectional), which persisted through to the conclusion of the procedure >30 minutes later. Typical Atrioventricular Florencia reentrant Tachycardia: Although lacking for a reliable endpoint, empiric ablation targeting the AV node slow pathway was accomplished in light of findings discussed in Assessment and Findings #4 above. The rove catheter tip was positioned medial to the iCTI trajectory at the relatively small triangle of Patrick for mapping and ablationh. The His bundle location was marked using CARTO, with particular attention given to its most proximal inferior location. Once a stable catheter position was confirmed at a mid-location at the upper aspect of the anterior CS os, cautious ablation was accomplished (titrating an initial 10 montes of power up to 30 montes, while watching for an impedance drop (while observing for changes in the WV interval and for the emergence of an accelerated junctional rhythm). The first lesion was discontinued with no junctional beats seen. The rove catheter tip was shifted slightly rightward at the perceived margin of the CS os, and the same ablation effort was repeated, covering the relatively small area of the presumed slow pathway location; no accelerated junctional rhythm was elicited with any of the lesions (all with up to 30 montes delivered, and with an associated impedance drop observed). Afterward, atrial extrastimuli again did not result in eliciting dual AV node physiology, but single AV node echo beats yet could be elicited, as as noted at baseline. No SVT was inducible. The triangle of Patrick was re-evaluated. More proximally, but adjacent to the prior AV node slow pathway lesions, mechanical touch via the rove catheter tip resulted in transient AV conduction block. Moving the catheter away resulted in almost immediate synagogue of 1:1 conduction, with normal manifest conduction intervals - that sensitive location was suspected at or near the compact AV node. Immediately below this area atrial electrograms showed a more broadbased fragmented pattern almost continuous in timing to activation of the HIS. This was highly suspicious for further slow pathway tissue but was about one catheter tip distance from the area of the compact AV node. Further ablation effort was deferred. Atrial electrogram examined at a mid-location ~1 cm below the most inferior location of the detected his bundle deflection with a more rightward positioning of the rove catheter tip (but at a similar level as th first ablation 2 lesions) - a longer duration atrial signal extending later to the timing of proximal His bundle deflection was noted. Additional ablation was accomplished, using the same power titration as noted earlier, targeting ~1 cm trajectory; the only time any junctional beats were elicited was during ablation closest to the 2nd ablation lesion described earlier (perhaps 2 mm more superiorly situated otherwise). Completion of the Procedure: Upon completion of mapping, ablation, and follow up electrophysiologic and provocative testing, all catheters and sheaths were placed in neutral position and cautiously were withdrawn from the heart. Total Fluoroscopy Time: 17.8 minutes, low intensity setting, biplane Dose Area Product: ?3737 cGy.cm2 Cumulated Dose: ?443 mGy Total Radiofrequency Energy Delivered: 59677 Joules Total Actual Ablation Time: ?16:54 minuts:seconds At the conclusion of the procedure, sheaths were removed, and hemostasis was achieved via manual compression. The total estimated blood loss was <20 cc. No intravenous contrast was used during this procedure. The total fluid administered during the procedure was __ cc, and the urine output was __ cc. The patient tolerated the procedure well, with no apparent acute complications. He was transferred to the recovery area in stable condition with a Shanks catheter yet in place. Conclusions: 1) ??Cavotricuspid isthmus dependent atrial flutter elicited, mapped, and ablated (with persiting bidirectional conduction block across the isthmus achieved). 2) ??Atrioventricular node slow pathway pathway modification for presumed atrioventricular (see details above). 3) ??No manifest accessory pathway function was observed. 4) ??No sustained ventricular tachycardia was elicited via ventricular extra-stimulus pacing with up to triple extrastimuli into 2 [address] train cycle lengths at two separate sites. Follow Up: 1) ??Monitor overnight 2) ??Will continue metoprolol succinate dose at 100 mg daily (the patient has concurrent coronary disease and a history of myocardial infarction). 3) ??Discharge tomorrow with a Zio patch monitor, and then follow up in clinic; if subsequent supraventricular tachycardias emerge, cryoablation would be a consideration (due to the relatively small space of the triangle of Patrick). ?? ____ Dr. Escobar was present, and participated in all garcia aspects of this procedure; he personally reviewed, revised, and approved this report drafted by Dr. Brar. Fadi Escobar MD EP PROCEDURE ORDERAB LES documented in this encounter Visit Diagnoses Diagnosis SVT (supraventricular tachycardia) Other specified cardiac dysrhythmias Atrial tachycardia Other specified cardiac dysrhythmias Wide-complex tachycardia Paroxysmal ventricular tachycardia SVT (supraventricular tachycardia) Other specified cardiac dysrhythmias Atrial tachycardia Other specified cardiac dysrhythmias Wide-complex tachycardia Paroxysmal ventricular tachycardia documented in this encounter Care Teams Network Operations Specialist Relationship Specialty Start Date End Date Bin Bowman MD [address] [place] [phone] PCP - General General Internal Medicine 04/21/1707/11 documented as of this encounter
--- OUTSIDE RECORDS SUMMARY | 2024-06-04 20:47 | XMS_ITS | Encounter Summary ---
Author Organization [facility] [place] [address] Care Team Providers Care Boiler House Supervisor Name Role Phone Bin Bowman MD Primary Care Provider Encounter Details Date Type Department Care Team (Late st Contact Info) Description 07/04/2020 [place] [address] Makayla Mcdermott, RN COVID-19 Social History Tobacco Use Types Packs/Day Years [...] 2:00 PM EDT Office [place] [address] [facility] [place] [address] 06/11/2024 1:03 PM EDT Hospital Encounter [place] [address] [facility] [place] [address] 06/11/2024 1:03 PM EDT - 06/11/2024 1:58 PM EDT Surgery [place] [phone] [facility] [address] CYSTO, REMOVAL OF STENT, FOREIGN BODY OR CALCULUS, SIMPLE (WRVU 2.81) 06/23/2024 10:00 AM EDT Office Visit Cardiology at [address] [address] [facility] [place] [address] Scheduled Procedures Name Priority Associated Diagnoses Date/Ti me CYSTO, REMOVAL OF STENT, FOR EIGN BODY OR CALCULUS, SIMPLE (WRVU 2.81) NEPHROLITHIASIS 06/11/2024 1:03 PM EDT documented as of this encounter Visit Diagnoses Diagnosis COVID-19 documented in this encounter Care Teams Boiler House Supervisor Relationship Specialty Start Date End Date Bin Bowman MD [address] [place] [phone] PCP - General General Internal Medicine 04/21/1707/11 documented as of this encounter
--- OUTSIDE RECORDS SUMMARY | 2024-06-04 20:47 | XMS_ITS | Encounter Summary ---
Author Organization [facility], [facility] Address [facility] [place] [address] Care Team Providers Care Pumper Hand Name Role Phone Bin Bowman MD Primary Care Provider Encounter Details Date Type Department Care Team (Latest Contact Info) Description 07/05/2020 9:47 PM EDT - 07/05/2020 11:59 PM EDT [place] [address] COVID-19 Discharge Disposition: Home Social History Tobacco Use [...] Sustained Release 24 hrIndications:Coronary artery disease involving hoh coronary artery of hoh heart without angina pectoris,Essential hypertension,Heart palpitations Take 1 tablet by mouth 2 times daily. 90 tablet 1 07/11/2020 07/11/2020 apixaban (Eliquis) 2.5 mg Tablet Take 5 mg by mouth 2 times daily. 12/19/2020 metoprolol succinate XL (Toprol-XL) 100 mg Tablet Sustained Release 24 hrIndications:Coronary artery disease involving hoh coronary artery of hoh heart without angina pectoris,Essential hypertension,Heart palpitations Take [...] 2:00 PM EDT Office [place] [phone] Joan Castro MD [facility] [place] [address] 06/11/2024 1:03 PM EDT Hospital Encounter [place] [phone] Rachel Carrasco MD [facility] [place] [address] 06/11/2024 1:03 PM EDT - 06/11/2024 1:58 PM EDT Surgery Main Operating Room [facility] [place] [address] Rachel Carrasco MD [facility] [address] CYSTO, REMOVAL OF STENT, FOREIGN BODY OR CALCULUS, SIMPLE (WRVU 2.81) 06/23/2024 10:00 AM EDT Office Visit Cardiology at [address] [phone] Mo Horne MD [facility] [place] [address] Scheduled Procedures Name Priority Associated Diagnoses Date/Ti me CYSTO, REMOVAL OF STENT, FOR EIGN BODY OR CALCULUS, SIMPLE (WRVU 2.81) NEPHROLITHIASIS 06/11/2024 1:03 PM EDT documented as of this encounter Procedures Procedure Name Priority Date/Time Associated Diagnosis Comments COVID-19 PCR Routine 07/05/2020 1:02 PM EDT documented in this encounter Results * COVID-19 PCR (07/05/2020 1:02 PM EDT) SARS-CoV-2 RNA Not Detected Not Detected [facility] Comment: This result should be interpreted in combination with the clinical observations, patient history and epidemiological information. For testing of asymptomatic individuals, assay performance characteristics and clinical utility have not been evaluated. Testing for SARS-CoV-2 (Severe acute respiratory syndrome coronavirus 2, formerly known as 2019 novel coronavirus or 2019-nCoV) to aid in the diagnosis of COVID-19 is performed using the Sims RealTime SARS-CoV-2 as authorized by the FDA Emergency Use Authorization (EUA). This EUA assay is intended for In-vitro Diagnostic (IVD) use with respiratory specimens such as nasopharyngeal swabs collected from individuals during the acute phase of infection. This assay is performed based on the instructions for use provided by the [employer] and additional guidance provided by [facility] and FDA. Testing is performed in the Clinical Genomics and Advanced Technology Laboratory within the Department of Pathology and Laboratory Medicine at [facility], certified under the Clinical Laboratory Improvement [...] the patient is presumed to be infected. As required or requested by public health authorities, positive specimens may be sent for additional testing. Positive and negative predictive values for this test are highly dependent on disease prevalence. A result of Invalid indicates that neither the viral RNA targets nor the internal control target was detected. An invalid result suggests the presence of inhibitors. Recollection is recommended in the case of an invalid result. CDC COVID-19 criteria for testing on human specimens and clinical management guidance information are available at the CDC Coronavirus Disease 2019 (COVID-19) webpage under Information for Healthcare Professionals (https://www.cdc.gov/coronavirus/2019-ncov/hcp/index.html) Additional information about this and other EUA tests can be found in provider and patient fact sheets at the following FDA website: https://www.fda.gov/medical-devices/nfnmodhor-qcaytgyjpk-ayonimy-devices/emergen -us e-authorizations#wsimk09ajx SARS-Cov-2 RNA Source TILE APPLICATOR Swab [facility] Nasopharyngeal swab (specimen) Other / Unknown 07/05/2020 1:02 PM EDT 07/08/2020 12:15 AM EDT Narrative Resulting Agency Comment Spec In Lab Fadi Escobar MD MICROBIOLOGY - GENER AL ORDERABLES [facility] [place] [address] documented in this encounter Visit Diagnoses Diagnosis COVID-19 documented in this encounter Care Teams Pumper Hand Relationship Specialty Start Date End Date Bin Bomwan MD [address] [place] [phone] PCP - General General Internal Medicine 04/21/1707/11 documented as of this encounter
--- OUTSIDE RECORDS SUMMARY | 2024-06-04 20:47 | XMS_ITS | Encounter Summary ---
Author Organization [facility] Address [facility] [place] [address] Care Team Providers Care Playground Equipment Erector Name Role Phone Bin Bowman MD Primary Care Provider Reason for Visit * Auth/Cert Specialty Diagnoses / Procedures Referred By Zeyad mishra Referred To Contact Diagnoses . Procedures ELECTROPHYSIOLOGY PROCEDURE Referral ID Status Reason Start Date Expiration Date Visits Re quested Visits Authorized [id number] 1 1 Encounter Details Date Type Department Care Team (Latest Contact Info) Description 07/10/2020 7:22 AM EDT - 07/11/2020 11:35 AM EDT Hospital Encounter Intermediate [place] [address] Fadi Escobar MD [facility] [place] [address] SVT (supraventricular tachycardia); Coronary disease; Essential hypertension; Heart palpitations Discharge Disposition: Home Social History [...] Sign Reading Time Taken Comments Blood Pressure 128/73 07/11/2020 4:06 AM EDT Pulse 79 07/11/2020 4:06 AM EDT Temperature 37 ??C (98.6 ??F) 07/11/2020 4:06 AM EDT Respiratory Rate 16 07/11/2020 4:06 AM EDT Oxygen Saturation 98% 07/11/2020 4:06 AM EDT Inhaled Oxygen Concentration - - Weight 177.5 kg (391 lb 5.1 oz) 07/11/2020 5:00 AM EDT Height 167.6 cm (5' 6) 07/10/2020 7:56 AM EDT Body Mass Index 63.16 07/10/2020 7:56 AM EDT documented in this encounter Discharge Summaries * Fadi Escobar MD - 07/11/2020 7:07 AM EDT Cardiac Electrophysiology Discharge Summary Patient Name: Rolo Aguilar Patient Age: 49 y.o. Language: Emirati Race: White Ethnicity: Not nor Admit date: 07/10/2020 Discharge date and time: 07/11/2020 Attending Physician: Fadi Escobar MD Discharge Physician: Fadi Escobar MD Follow-up Recommendations for Providers: - s/p CTI ablation (atrial flutter ablation) - follow-up with EP in ~3 months Inpatient Provider Contact Information: Cardiac Electrophysiology - Weekends and holidays call [phone]; ask for lens grinder and polisher occupational therapy specialist. Discharge Diagnoses (Hospital Problems) and Secondary Diagnoses [...] of any new medications initiated at the [facility]. The patient should be aware and [...] his/her physician or the Cardiac Electrophysiology Service ([phone]). Cardiac Electrophysiology Attending This patient was reviewed with Mr. Kahn and Dr. De Anda. I discussed procedural results and findings with Mr. Aguilar, and recommended follow up in ~3 months (sooner prn) after he wears a Zio monitor and results are available. If insurance in [place] fails to cover the cost of the [...] of any new medications initiated at the [facility]. The patient should be aware and [...] his/her physician or the Cardiac Electrophysiology Service ([phone]). documented in this encounter Medications at Time [...] OM1. EF 60%. Many ER visits to [facility] after this. ??? Heart palpitations [...] contact EP with any further questions (pager [phone]). SONNY Grover 07/11/2020 Pager: [phone] * Justa Rider, FLAVIA - 07/10/2020 10:29 [...] Interval History and Physical Exam: Planned Procedure [facility] HISTORY OF PRESENT ILLNESS: Rolo Aguilar is a 49 y.o. male with multiple symptomatic dysrhythmias recently. April 27 to the Emergency Department in [facility] with an episode of supraventricular tachycardia (SVT) [...] (WRVU 11.47) performed by Colt Hewitt MD [facility] MAIN OR ??? PRO UNLISTED LAPAROSCOPIC PX LVR N/A 07/21/2018 LAPAROSCOPIC LIVER BIOPSY (WRVU 16.52) performed by Colt Hewitt MD at [facility] MAIN OR ??? PRO UPPER GI ENDOSCOPY, BIOPSY N/A 12/29/2017 UPPER GASTROINTESTINAL ENDOSCOPY,WITH BIOPSY SINGLE OR MULTIPLE (WRVU 2.49) performed by Yusuf Tucker MD at [facility] ENDOSCOPY ??? PRO UPPER GI ENDOSCOPY, DIAGNOSTIC N/A 12/29/2017 EGD, UPPER GI ENDOSCOPY performed by Yusuf Tucker MD at [facility] ENDOSCOPY Accessory Clinical Findings: Laboratory Data: Lab [...] service for dysrythmnia. He is insured through [place] Medicaid with prescription coverage. Per discussion with [...] 2:00 PM EDT Office Visit Gastroenterology at [place] [phone] Joan Castro MD [facility] [place] [address] 06/11/2024 1:03 PM EDT Hospital Encounter Main Operating Room [place] [phone] Rachel Carrasco MD [facility] [place] [address] 06/11/2024 1:03 PM EDT - 06/11/2024 1:58 PM EDT Surgery [place] [phone] Rachel Carrasco MD [facility] [place] [address] CYSTO, REMOVAL OF STENT, FOREIGN BODY OR CALCULUS, SIMPLE (WRVU 2.81) 06/23/2024 10:00 AM EDT Office Visit Cardiology at [address] [place] [address] Mo Horne MD [facility] [address] Scheduled Orders Name Type Priority Associated Diagnoses [...] (Bezet) 426 ms MUSE SYSTEM Calculated P [place] 27 degrees MUSE SYSTEM Calculated R [place] 29 degrees MUSE SYSTEM Calculated T [place] 18 degrees MUSE SYSTEM INTERPRETATION Normal sinus rhythm Normal ECG When compared with ECG of 16-JUL-2017 06:45, T wave inversion less evident in Inferior leads Nonspecific T wave abnormality no longer evident in Lateral leads I personally reviewed the tracing and edited the fellows interpretation Confirmed by fellow Humza Wilson ([id number]) on 07/10/2020 11:25:10 AM Confirmed by MD Cheng, Jose ([id number]) on 07/10/2020 2:19:23 PM MUSE SYSTEM 07/10/2020 8:14 AM EDT 07/10/2020 2:19 PM EDT Fadi Escobar MD ECG ORDERABLES MUSE SYSTEM * Differential, Automated (07/10/2020 7:38 AM EDT) Neutrophils % 57.6 % [facility] Neutr Abs (ANC) 5.69 1.70 - 6.10 x10(3)/[facility] Lymphocytes % 31.6 % [facility] Lymphocytes Abs 3.1 0.9 - 3.2 x10(3)/[facility] Monocytes % 7.6 % [facility] Monocyte Abs 0.8 0.3 - 0.9 x10(3)/[facility] Eosinophils % 2.2 % [facility] Eosinophils Abs 0.2 0.0 - 0.4 x10(3)/[facility] Basophils % 0.6 % [facility] Basophils Abs 0.1 0.0 - 0.1 x10(3)/[facility] Immature Gran % 0.40 % [facility] Comment: Immature granulocytes(IG's)percentage and absolute count will include metamyelocytes, myelocytes, and promyelocytes. Blood smears from CBCs yielding IG's will be scanned manually for concordance. If this scan disagrees with the automated IG or if promyelocytes are noted, a manual differential will be performed. Amy Gran Abs 0.04 0.00 - 0.04 x10(3)/[facility] Blood specimen (specimen) 07/10/2020 7:38 AM EDT 07/10/2020 7:55 AM EDT Narrative Resulting Agency Comment Spec In Lab Fadi Escobar MD HEMATOLOGY ORDERABLE S [facility] [place] [address] * (ABNORMAL) Hemogram (07/10/2020 7:38 AM EDT) WBC 9.9(H) 4.0 - 9.5 x10(3)/[facility] RBC 5.29 4.58 - 5.54 x10(6)/[facility] Hemoglobin 15.6 13.7 - 16.5 gm/dL [facility] Hematocrit 47.3 40.5 - 48.5 % [facility] MCV 89.4 82.9 - 93.1 [facility] MCH 29.5 27.5 - 32.1 pg [facility] MCHC 33.0 32.0 - 35.7 gm/dL [facility] Platelets 208 145 - 357 x10(3)/[facility] RDWSD 41.3 36.0 - 45.0 [facility] RDWCV 12.5 11.4 - 13.8 % [facility] MPV 10.7 7.6 - 12.9 [facility] nRBC % Auto 0.0 % [facility] nRBC Abs Auto 0.000 0.000 - 0.000 x10(3)/[facility] Blood specimen (specimen) 07/10/2020 7:38 AM EDT 07/10/2020 7:55 AM EDT Narrative Resulting Agency Comment Spec In Lab Fadi Escobar MD HEMATOLOGY ORDERABLE S [facility] [place] [address] * (ABNORMAL) BMP w/fasting Glucose (07/10/2020 7:38 AM EDT) Glucose Fasting 113(H) 65 - 99 mg/dL [facility] Comment: ?Fasting* Glucose Interpretive Criteria [...] of Diabetes Mellitus, Position Statement from the [place] [employer]. ??Diabetes Care, Volume 33, Supplement 1, Nov 2009 BUN 13 10 - 20 mg/dL [facility] Creatinine 1.05 0.80 - 1.50 mg/dL [facility] Sodium 140 135 - 145 mmol/L [facility] Potassium 4.7 3.5 - 5.0 mmol/L [facility] Comment: Please note: ??Patients with WBC >100,000 may have falsely elevated Potassium levels. ??For accurate Potassium quantification in these patients send serum separator tube (gold top) for subsequent determinations. ??Contact the Clinical Chemistry Laboratory if there are any questions. Chloride 100 98 - 107 mmol/L [facility] CO2 32(H) 22 - 31 mmol/L [facility] Anion Gap 8 5 - 15 mmol/L [facility] Calcium 10.0 8.5 - 10.5 mg/dL [facility] Estimated GFR 82 >=60 mL/min/1. 73 m?? [facility] Comment: The eGFR was calculated using the CKD-EPI equation. As with all creatinine based estimates of kidney function, eGFR values calculated with the CKD-EPI equation are not accurate in patients with acute kidney failure, extremes of body mass or the acutely ill. [email or web address] eGFR 95 >=60 mL/min/1. 73 m?? [facility] Comment: The eGFR was calculated using the CKD-EPI equation. As with all creatinine based estimates of kidney function, eGFR values calculated with the CKD-EPI equation are not accurate in patients with acute kidney failure, extremes of body mass or the acutely ill. [email or web address] Blood specimen (specimen) 07/10/2020 7:38 AM EDT 07/10/2020 7:56 AM EDT Narrative Resulting Agency Comment Spec In Lab Fadi Escobar MD CHEMISTRY ORDERABLES Performing Organization Address [facility] Co de Phone Number [facility] [place] [address] * (ABNORMAL) Prothrombin Time (07/10/2020 7:38 AM EDT) PT 14.0(H) 9.4 - 12.5 sec [facility] INR 1.2 [facility] Comment: An INR <2.0 indicates [...] MD HEMATOLOGY ORDERABLE S Performing Organization Address [facility] Co de Phone Number [facility] [place] [address] documented in this encounter Visit Diagnoses Diagnosis SVT (supraventricular tachycardia) Other specified cardiac dysrhythmias Coronary disease Essential hypertension Unspecified essential hypertension Heart palpitations Palpitations H/O cardiac radiofrequency ablation documented in this encounter Admitting Diagnoses Diagnosis [...] on Fri07/11/20 at 0900, Until Discontinued, Routine 09 (Given - Provid er: Kati Edmonds RN) metoprolol succinate XL (Toprol-XL) tablet 100 mg 100 mg, Oral, DAILY, First dose on Fri07/10/20 at 1930, Until Discontinued, DO NOT CRUSH OR OPEN, Routine 2132 (Given - Provider: Justa Rider RN) 901 (Given - Provider: Kati Edmonds RN) pantoprazole EC (Protonix) tablet 40 mg 40 [...] Rider RN) 0906 (Given - Provider: Kati Edmnods RN) HYDROmorphone (DILAUDID) injection 0.4-0.6 mg (CANCELED) [...] Routine documented in this encounter Care Teams Playground Equipment Erector Relationship Specialty Start Date End Date Bin Bowman MD [address] [place] [phone] PCP - General General Internal Medicine 04/21/1707/11 documented as of this encounter
--- OUTSIDE RECORDS SUMMARY | 2024-06-04 20:47 | XMS_ITS | Encounter Summary ---
Author Organization [facility] [place] [address] Care Team Providers Care Field Sales Consultant Name Role Phone Bin Bowman MD Primary Care Provider Reason for Visit * Reason Comments Medication Refill Encounter Details Date Type Department Care Team (Late st Contact Info) Description 08/03/2018 Refill [place] [phone] Breonna Ambrocio, GRAIN HANDLER [address] [place] [address] Gastroesophageal reflux disease, esophagitis presence not specified [...] 2:00 PM EDT Office [place] [phone] Joan Castro MD [facility] [place] [address] 06/11/2024 1:03 PM EDT Hospital Encounter [place] [phone] Rachel Carrasco MD [facility] [place] [address] 06/11/2024 1:03 PM EDT - 06/11/2024 1:58 PM EDT Surgery [place] [phone] Rachel Carrasco MD [facility] [place] [address] CYSTO, REMOVAL OF STENT, FOREIGN BODY OR CALCULUS, SIMPLE (WRVU 2.81) 06/23/2024 10:00 AM EDT Office Visit Cardiology at [address] [address] Mo Horne MD [facility] [place] [address] Scheduled Procedures Name Priority Associated Diagnoses Date/Ti me CYSTO, REMOVAL OF STENT, FOR EIGN BODY OR CALCULUS, SIMPLE (WRVU 2.81) NEPHROLITHIASIS 06/11/2024 1:03 PM EDT documented as of this encounter Visit Diagnoses Diagnosis Gastroesophageal reflux disease, esophagitis presence not specified documented in this encounter Care Teams Field Sales Consultant Relationship Specialty Start Date End Date Bin Bowman MD [address] [place] [phone] PCP - General General Internal Medicine 04/21/1707/11 documented as of this encounter
--- OUTSIDE RECORDS SUMMARY | 2024-06-04 20:47 | XMS_ITS | Encounter Summary ---
Author Organization [facility] [place] [address] Care Team Providers Care Sleeve Turner Name Role Phone Bin Bowman MD Primary Care Provider Encounter Details Date Type Department Care Team (Late st Contact Info) Description 07/04/2020 [place] [phone] Jil Reis Social History Tobacco Use Types Packs/Day Years [...] encounter Miscellaneous Notes * Telephone Encounter - Jil Rivera - 07/04/2020 11:29 AM EDT Spoke with to schedule preop covid 19 test. Would like an order sent to [facility] and she willcall to get this scheduled. Gave her number to call. documented in this encounter Plan of Treatment Upcoming Encounters Date Type Department Care Team (Latest Contact Info) Description 06/07/2024 2:00 PM EDT Office [place] [address] Joan Castro MD [facility] [place] [address] 06/11/2024 1:03 PM EDT Hospital Encounter Main Operating Room [address] Rachel Carrasco MD [facility] [place] [address] 06/11/2024 1:03 PM EDT - 06/11/2024 1:58 PM EDT Surgery Main Operating Room [place] [address] Rachel Carrasco MD [facility] [place] [address] CYSTO, REMOVAL OF STENT, FOREIGN BODY OR CALCULUS, SIMPLE (WRVU 2.81) 06/23/2024 10:00 AM EDT Office Visit Cardiology at [address] [address] Mo Horne MD [facility] [place] [address] Scheduled Procedures Name Priority Associated Diagnoses Date/Ti me CYSTO, REMOVAL OF STENT, FOR EIGN BODY OR CALCULUS, SIMPLE (WRVU 2.81) NEPHROLITHIASIS 06/11/2024 1:03 PM EDT documented as of this encounter Visit Diagnoses Not on filedocumented in this encounter Care Teams Sleeve Turner Relationship Specialty Start Date End Date Bin Bowman MD [address] [place] [id number] PCP - General General Internal Medicine 04/21/1707/11 documented as of this encounter
--- OUTSIDE RECORDS SUMMARY | 2024-06-04 20:48 | XMS_ITS | Encounter Summary ---
Author Organization [facility] [place] [address] Care Team Providers Care Truck Rental Service Attendant Name Role Phone Bin Bowman MD Primary Care Provider Reason for Visit * Reason Comments GI Problem * Consultation (Routine) - Closed Specialty Diagnoses / Procedures Referred By Zeyad mishra Referred To Contact Gastroenterology Diagnoses Elevated LFTs Breonna Ambrocio, BABAK [address] [place] [address] [facility] [address] [place] [address] Referral ID Status Reason Start Date Expiration Date V isits Requested Visits Authorized [id number] Closed Consult, Test & Treat 10/07/2017 10/07/2018 1 1 Encounter Details Date Type Department Care Team (Late st Contact Info) Description 01/20/2018 10:30 AM EDT Office [place] [address] Rachel Farrar APRN [facility] [place] [address] Nausea without vomiting; Elevated liver enzymes Social History Tobacco Use Types Packs/Day Years [...] Sign Reading Time Taken Comments Blood Pressure 129/71 01/20/2018 10:28 AM EDT Pulse 73 01/20/2018 10:28 AM EDT Temperature - - Respiratory Rate - - Oxygen Saturation - - Inhaled Oxygen Concentration - - Weight 143.2 kg (315 lb 11.2 oz) 2017 10:28 AM EDT Height 167.6 cm (5' 6) 01/20/2018 10:2 8 AM EDT Body Mass Index 50.96 01/20/2018 10:28 AM EDT documented in this encounter Progress Notes * Rachel Farrar APRN - 01/20/2018 10:30 AM EDT HEPATOLOGY NEW PATIENT CONSULTATION Rolo Aguilar 1970 BOBBIN WINDER: RACHEL FARRAR APRN PCP: Bin Bowman MD Requesting Provider: REASON FOR CONSULTATION Elevated liver enzymes. HISTORY OF PRESENT ILLNESS Rolo Aguilar is a 47 y.o. year old male with elevated liver enzymes at the time of a STEMI inNov2016. His main concern today is nausea that has worsened over the past 3 months and abdominal pain. He is also seeing Breonna Ambrocio APRN today for those concerns. He has never been told of any liver issues. Denies any jaundice. He has lost over 50 lbs in the past year due to nausea. ROS: Constitutional: SEe HPI. Eye: no visual changes ENT: no URI symptoms Cardio: no chest pain, palpitations Resp: no cough, no SOB GI: see HPI. No blood in stools, no nausea/vomitting : no dysuria Integumentary: no new rashes, no easy bruising Musculoskeletal: no new joint pains, swelling of ankles or legs Neuro: no new numbness, weakness in extremities PAST MEDICAL/SURGICAL HISTORY H/o STEMI GERD Bipolar MEDICATIONS Outpatient Prescriptions Marked as Taking for the 01/20/18 encounter (Office Visit) with Rachel Farrar APRN Medication Sig Dispense Refill ??? MARIJUANA ORAL Take by mouth. ??? ondansetron (ZOFRAN-ODT) 4 mg Tablet, Rapid Dissolve Take 1 tablet by mouth every 8 hours as needed for Nausea. 20 tablet 0 ??? esomeprazole (NEXIUM) 40 mg Capsule, Delayed Release(E.C.) Take 40 mg by mouth daily. ??? aspirin 81 mg Tablet, Delayed Release (E.C.) Take 1 tablet by mouth daily. 30 tablet 3 ??? atorvastatin (LIPITOR) 80 mg Tablet Take 1 tablet by mouth every evening. 90 tablet 3 ??? clopidogrel (PLAVIX) 75 mg Tablet Take 1 tablet by mouth daily. 90 tablet 3 ??? lisinopril (PRINIVIL;ZESTRIL) 2.5 mg Tablet Take 1 tablet by mouth daily. 90 tablet 3 ??? meTOPROLOL succinate (TOPROL-XL) 50 mg Tablet Sustained Release 24 hr Take 1 tablet by mouth daily. 30 tablet 12 ??? lamoTRIgine (LAMICTAL) 200 mg Tablet Take 1 tablet by mouth daily. 30 tablet 3 ??? ziprasidone (GEODON) 20 mg Capsule Take 20 mg by mouth every other day. ??? clonazePAM (KLONOPIN) 1 mg Tablet Take 1 mg by mouth 2 times daily as needed for Anxiety. ALLERGIES Allergies Allergen Reactions ??? Gabapentin ??? Wellbutrin [Bupropion Hcl] ??? 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 PHYSICAL EXAM Vitals: 01/20/18 1028 BP: 129/71 Pulse: 73 Weight: (!) 143.2 kg (315 lb 11.2 oz) Height: 167.6 cm (5' 6) Body mass index is 50.96 kg/(m^2). Gen: Well appearing, no apparent distress. Skin: no spider angiomata, no palmar erythema, no jaundice. HEENT: Sclerae anicteric, pupils equal, round, react to light. Pharynx unremarkable. Neck is supple, no adenopathy, no thyromegaly. Chest is clear. Heart: Regular rate and rhythm. Normal S1, S2, no murmurs. Abdomen: Normal bowel sounds; soft, non distended. No obvious hepatosplenomegaly. No evidence of ascites. Tender to palpation. Extremities: No edema. Neuro: alert and oriented x3, no asterixis or tremor. Lab Results Component Value Date WBC 8.7 10/07/2017 HGB 15.2 10/07/2017 HCT 47.1 10/07/2017 MCV 87.5 10/07/2017 PLATELET 217 10/07/2017 No results for input(s): INR in the last 168 hours. Lab Results Component Value Date ALT 35 07/13/2017 AST 193 (H) 07/13/2017 ALKPHOS 44 07/13/2017 BILITOT 0.6 07/13/2017 Chemistry Component Value Date/Time NA 139 07/16/2017 0516 K 4.0 07/16/2017 0516 CL 101 07/16/2017 0516 CO2 26 07/16/2017 0516 BUN 11 07/16/2017 0516 CREATININE 1.05 07/16/2017 0516 Component Value Date/Time CALCIUM 9.0 07/16/2017 0516 ALKPHOS 44 07/13/2017 1500 AST 193 (H) 07/13/2017 1500 ALT 35 07/13/2017 1500 BILITOT 0.6 07/13/2017 1500 Ref. Range 07/13/2017 15:00 ALT Latest Ref Range: 0 - 55 unit/L 35 AST Latest Ref Range: 0 - 39 unit/L 193 (H) Alk Phos Latest Ref Range: 40 - 120 unit/L 44 Total Bilirubin Latest Ref Range: 0.2 - 1.3 mg/dL 0.6 Albumin Latest Ref Range: 3.2 - 5.2 gm/dL 3.0 (L) Creatinine Latest Ref Range: 0.80 - 1.50 mg/dL 1.01 Potassium Latest Ref Range: 3.5 - 5.0 mmol/L 4.4 Sodium Latest Ref Range: 135 - 145 mmol/L 139 11/09/16: AST: 41 ALT: 30 Alk Phos: 71 Albumin; 4.4 Tbili: 0.9 Unable to obtain valid readings on Fibroscan. NAFLD Score: -0.248 (indeterminate for fibrosis) Fib-4: 1.049 (significant fibrosis unlikely) ASSESSMENT/PLAN Rolo Aguilar is a 47 y.o. male with elevated liver enzymes in July 2017, which was at the time of a STEMI. Upon review of his records, his liver enzymes are slightly elevated in 2015, however much less than in 07/2017. I suspect that he has underlying fatty liver disease (NAFLD) causing his elevated liver tests in 2015 and that his his elevated liver enzymes in July 2017 was due tohis acute STEMI. I was unable to do a fibroscan today due to his body habitus, but my suspicion foradvanced fibrosis is low based on his NAFLD score and Fib-4 score. I will do a liver fibrosis panelto further assess fibrosis level and recheck his liver enzymes today. We discussed that treatment for fatty liver is based in lifestyle changes, including weight loss. He has lost over 50 lbs in the past year due to nausea, which would cause fat to come out of his liver. We discussed that treatment was keeping that weight off and continuing to watch his diet and to exercise. His nausea and abdominal pain is of greater concern to the patient, and he is seeing Breonna Ambrocio APRN, for these issues today. We discussed doing an abdominal ultrasound to assess for hepatic steatosis and also examine his gallbladder for potential gallstones. Plan; - Blood work today- CMP, LIver fibrosis panel - Ultrasound of liver next available - patient will do locally. Rachel Farrar APRN Section of [place]astroenterology [place] [address] Copy: Bin Bowman MD [address] / [facility] [id number] 35 minutes of this 38 minute visit in face to face discussion regarding disease, prognosis and treatment documented in this encounter Plan of Treatment Upcoming Encounters Date Type Department Care Team (Latest Contact Info) Description 06/07/2024 2:00 PM EDT Office [place] [phone] Joan Castro MD [facility] [place] [address] 06/11/2024 1:03 PM EDT Hospital Encounter Main Operating Room [place] [phone] Rachel Carrasco MD [facility] UROLOGY [place] [id number] 06/11/2024 1:03 PM EDT - 06/11/2024 1:58 PM EDT Surgery [place] [address] Rachel Carrasco MD [facility] [place] [address] CYSTO, REMOVAL OF STENT, FOREIGN BODY OR CALCULUS, SIMPLE (WRVU 2.81) 06/23/2024 10:00 AM EDT Office Visit Cardiology at [address] [place] [address] Mo Horne MD [facility] [place] [address] Scheduled Procedures Name Priority Associated Diagnoses Date/Ti me CYSTO, REMOVAL OF STENT, FOR EIGN BODY OR CALCULUS, SIMPLE (WRVU 2.81) NEPHROLITHIASIS 06/11/2024 1:03 PM EDT documented as of this encounter Visit Diagnoses Diagnosis Nausea without vomiting Elevated liver enzymes Nonspecific elevation of levels of transaminase or lactic acid dehydrogenase (LDH) documented in this encounter Care Teams Truck Rental Service Attendant Relationship Specialty Start Date End Date Bin Bowman MD [address] [place] [id number] PCP - General General Internal Medicine 04/21/1707/11 documented as of this encounter
--- OUTSIDE RECORDS SUMMARY | 2024-06-04 20:48 | XMS_ITS | Encounter Summary ---
Author Organization [facility] [place] [address] Care Team Providers Care Laminating Machine Operator Helper Name Role Phone Bin Bowman MD Primary Care Provider [phone] Encounter Details Date Type Department Care Team (Late st Contact Info) Description 12/04/2017 Orders Only [place] [address] Breonna Ambrocio, HORSE AND WAGON DRIVER [address] [place] [address] Gastroesophageal reflux disease, esophagitis presence not specified; Dyspepsia Social History Tobacco Use Types Packs/Day Years [...] Office Visit [place] [phone] Joan Castro MD [facility] [place] [place] [address] 06/11/2024 1:03 PM EDT Hospital Encounter [place] [address] Rachel Carrasco MD [facility] [place] [address] 06/11/2024 1:03 PM EDT - 06/11/2024 1:58 PM EDT Surgery [place] [address] Rachel Carrasco MD [facility] [place] [address] CYSTO, REMOVAL OF STENT, FOREIGN BODY OR CALCULUS, SIMPLE (WRVU 2.81) 06/23/2024 10:00 AM EDT Office Visit Cardiology at [address] [address] Mo Horne MD [facility] [place] [address] Scheduled Procedures Name Priority Associated Diagnoses Date/Ti me CYSTO, REMOVAL OF STENT, FOR EIGN BODY OR CALCULUS, SIMPLE (WRVU 2.81) NEPHROLITHIASIS 06/11/2024 1:03 PM EDT documented as of this encounter Visit Diagnoses Diagnosis Gastroesophageal reflux disease, esophagitis presence not specified Dyspepsia Dyspepsia and other specified disorders of function of stomach documented in this encounter Care Teams Laminating Machine Operator Helper Relationship Specialty Start Date End Date Bin Bowman MD [address] [place] [id number] PCP - General General Internal Medicine 04/21/1707/11 documented as of this encounter
--- OUTSIDE RECORDS SUMMARY | 2024-06-04 20:48 | XMS_ITS | Encounter Summary ---
Author Organization [facility] [place] [address] Care Team Providers Care Department Chairperson Name Role Phone Bin Bowman MD Primary Care Provider Encounter Details Date Type Department Care Team (Late st Contact Info) Description 01/16/2018 Orders Only [place] [phone] Breonna Ambrocio, SKOOG OPERATOR [address] [place] [address] Social History Tobacco Use Types Packs/Day Years [...] 2:00 PM EDT Office Visit [place] [phone] Joan Castro MD [facility] [place] [address] 06/11/2024 1:03 PM EDT Hospital Encounter [place] [address] Rachel Carrasco MD [facility] [place] [address] 06/11/2024 1:03 PM EDT - 06/11/2024 1:58 PM EDT Surgery [place] [phone] Rachel Carrasco MD [facility] [place] [address] CYSTO, REMOVAL OF STENT, FOREIGN BODY OR CALCULUS, SIMPLE (WRVU 2.81) 06/23/2024 10:00 AM EDT Office Visit Cardiology at [address] [address] Mo Horne MD [facility] [place] [address] Scheduled Procedures Name Priority Associated Diagnoses Date/Ti me CYSTO, REMOVAL OF STENT, FOR EIGN BODY OR CALCULUS, SIMPLE (WRVU 2.81) NEPHROLITHIASIS 06/11/2024 1:03 PM EDT documented as of this encounter Visit Diagnoses Not on filedocumented in this encounter Care Teams Department Chairperson Relationship Specialty Start Date End Date Bin Bowman MD [address] [place] [id number] PCP - General General Internal Medicine 04/21/1707/11 documented as of this encounter
--- OUTSIDE RECORDS SUMMARY | 2024-06-04 20:48 | XMS_ITS | Encounter Summary ---
Author Organization [facility] [place] [address] Care Team Providers Care Shipping Receiving Manager Name Role Phone Bin Bowman MD Primary Care Provider [phone] Encounter Details Date Type Department Care Team (Late st Contact Info) Description 03/06/2018 Telephone [place] [phone] Dimple Wolf, RN Social History Tobacco Use Types Packs/Day [...] encounter Miscellaneous Notes * Telephone Encounter - Dimple Wolf RN - 03/06/2018 1:06 PM EDT Returned call to patient after discussing with Breonna Ambrocio APRN. Explained to patient that Breonna would rather not continue to prescribe Ativan as is seems that the Ativan and Zofran are not being taken at the same time. Breonna Ambrocio would like patient to contact his PCP to discuss/ be evaluated to be sure that his anxiety is being treated appropriately and the Ativan is not masking anything else. Breonna Ambrocio APRN did offer to write a small prescription for the Ativan to get him through the weekend until he had a chance to contact his PCP. Patient declined prescription and was not sure that he would request Ativan from PCP as PCP is prescribing the klonopin. Patient states that he is seeing Dr. Hewitt in a couple of weeks and hopefully once that is taken care of he hopes to feel better. Patient will call then office with any questions/concerns. Forwarding to Breonna Ambrocio APRN. * Telephone Encounter - Dimple Wolf RN - 03/06/2018 12:24 PM EDT Patient calls the office leaving a message on the RN voicemail stating, Breonna and I have been emailing back and forth. I have been using the Ativan very sparingly, the directions say to take it every 6 hours as needed, I haven't been taking it that often. I have 3 pills left and would like to talk to Breonna as she mention not prescribing it. Forwarding message to Breonna Ambrocio APRN documented in this encounter Plan of Treatment Upcoming Encounters Date Type Department Care Team (Latest Contact Info) Description 06/07/2024 2:00 PM EDT Office [place] [address] Joan Castro MD [facility] [place] [address] 06/11/2024 1:03 PM EDT Hospital Encounter [place] [phone] Rachel Carrasco MD [facility] [place] [address] 06/11/2024 1:03 PM EDT - 06/11/2024 1:58 PM EDT Surgery Main Operating [place] [address] Rachel Carrasco MD [facility] [place] [address] CYSTO, REMOVAL OF STENT, FOREIGN BODY OR CALCULUS, SIMPLE (WRVU 2.81) 06/23/2024 10:00 AM EDT Office Visit Cardiology at [address] [place] [address] Mo Horne MD [facility] [place] [address] Scheduled Procedures Name Priority Associated Diagnoses Date/Ti me CYSTO, REMOVAL OF STENT, FOR EIGN BODY OR CALCULUS, SIMPLE (WRVU 2.81) NEPHROLITHIASIS 06/11/2024 1:03 PM EDT documented as of this encounter Visit Diagnoses Not on filedocumented in this encounter Care Teams Shipping Receiving Manager Relationship Specialty Start Date End Date Bin Bowman MD [address] [place] [id number] PCP - General General Internal Medicine 04/21/1707/11 documented as of this encounter
--- OUTSIDE RECORDS SUMMARY | 2024-06-04 20:48 | XMS_ITS | Encounter Summary ---
Author Organization [facility] [place] [address] Care Team Providers Care Waste Recycler Name Role Phone Bin Bowman MD Primary Care Provider Encounter Details Date Type Department Care Team (Late st Contact Info) Description 02/05/2018 Orders [place] [phone] Breonna Ambrocio, PRE OWNED SALES CONSULTANT [address] [place] [address] Gastroesophageal reflux disease, esophagitis presence not specified; Epigastric pain Social History Tobacco Use Types Packs/Day [...] 2:00 PM EDT Office [place] [phone] Joan Castro MD [facility] [place] [address] 06/11/2024 1:03 PM EDT Hospital Encounter [place] [address] Rachel Carrasco MD [facility] [place] [address] 06/11/2024 1:03 PM EDT - 06/11/2024 1:58 PM EDT Surgery [place] [address] Rachel Carrasco MD [facility] [place] [address] CYSTO, REMOVAL OF STENT, FOREIGN BODY OR CALCULUS, SIMPLE (WRVU 2.81) 06/23/2024 10:00 AM EDT Office Visit Cardiology at [address] [address] Mo Horne MD [facility] [place] [address] Scheduled Procedures Name Priority Associated Diagnoses Date/Ti me CYSTO, REMOVAL OF STENT, FOR EIGN BODY OR CALCULUS, SIMPLE (WRVU 2.81) NEPHROLITHIASIS 06/11/2024 1:03 PM EDT documented as of this encounter Visit Diagnoses Diagnosis Gastroesophageal reflux disease, esophagitis presence not specified Epigastric pain Abdominal pain, epigastric documented in this encounter Care Teams Waste Recycler Relationship Specialty Start Date End Date Bin Bowman MD [address] [place] [id number] PCP - General General Internal Medicine 04/21/1707/11 documented as of this encounter
--- OUTSIDE RECORDS SUMMARY | 2024-06-04 20:48 | XMS_ITS | Encounter Summary ---
[place] [address] Care Team Providers Care Anesthesia Assistant Name Role Phone Bin Bowman MD Primary Care Provider Reason for Referral * Consultation (Routine) - Closed Specialty Diagnoses / Procedures Referred By Zeyad mishra Referred To Contact Gastroenterology Diagnoses Elevated LFTs Breonna Ambrocio APRN [address] [place] [address] [facility] [address] [place] [phone] Referral ID Status Reason Start Date Expiration Date V isits Requested Visits Authorized [id number] Closed Consult, Test & Treat 10/07/2017 10/07/2018 1 1 * Surgical (Routine) - Specialty Diagnoses / Procedures Referred By Zeyad mishra Referred To Contact Gastroenterology Diagnoses Gastroesophageal reflux disease, esophagitis presence not specified GERD Procedures Farmer Capsule pH Test Farmer Breonna Ambrocio APRN [address] [place] [address] [facility] [address] [place] [id number] Referral ID Status Reason Start Date Expiration Date V isits Requested Visits Authorized [id number] Consult, Test & Treat 10/07/2017 10/07/2018 1 1 Reason for Visit * Reason Comments Follow-up Encounter Details Date Type Department Care Team (Late st Contact Info) Description 10/07/2017 10:00 AM EST Office [place] [address] Breonna Ambrocio, DIRECTOR ALUMNI RELATIONS [address] [place] [address] Dysphagia, unspecified type; Gastroesophageal reflux disease, esophagitis presence not specified; Bloating; Diarrhea, unspecified type; Elevated LFTs Social History Tobacco Use Types Packs/Day Years [...] Sign Reading Time Taken Comments Blood Pressure 129/78 10/07/2017 9:47 AM EST Pulse 64 10/07/2017 9:47 AM EST Temperature - - Respiratory Rate - - Oxygen Saturation - - Inhaled Oxygen Concentration - - Weight 159.2 kg (351 lb) 10/07/2017 9:47 AM EST Height 167.6 cm (5' 6) 10/07/2017 9:47 AM EST Body Mass Index 56.65 10/07/2017 9:47 AM EST documented in this encounter Patient Instructions * Patient Instructions* Breonna Ambrocio APRN - 10/07/2017 10:00 AM EST 1. Upper endoscopy with anesthesia 2. Farmer pH on once daily pantoprazole 3. Increase pantoprazole to 40mg twice daily 30-60 minutes before breakfast and dinner 4. Labs today in 3L 5. Hepatology referral 6. Fibroscan 7. Follow up appointment 2-3 weeks after upper endoscopy documented in this encounter Progress Notes * Breonna Ambrocio APRN - 10/07/2017 10:00 AM EST Needle Felt Making Machine Operator: Breonna Ambrocio APRN PCP: Bin Bowman MD Requesting Provider: Bin Bowman MD REASON FOR VISIT This is a very nice 46 y.o. male with a history significant for bipolar disorder who returns to me today in follow up. GI PROBLEM LIST 1. PAVAN --EGD --Farmer pH --MEDICATION TRIALS *Pantoprazole 40mg once daily; not beneficial *FD Diana --LIFESTYLE/DIET *Weight loss *Mediterranean diet *GERD lifestyle modifications 2. DIARRHEA 3. ELEVATED LFTs Time Spent With Patient 28 minutes of this 31 minute visit were spent in [id number] discussion and counseling the patientas detailed per below. INTERVAL HISTORY- 10/07/17 Endorses some recent cardiac [...] Was using carafate for a little while. [place] this helped. Had an EGD in September 2016. Was told everything is normal, although patient states he feels he would like another EGD done by a insurance instructor and not a general surgeon. Denies dysphagia, odynophagia, globus. Denies regurgitation, nausea, vomiting. Decreased appetite. Early satiety. Post-prandial bloating frequently. Denies chronic NSAID use. No anemia. Abdominal pain related to heartburn and bloating. Denies diarrhea and constipation. No cramping or urgency. No blood or mucus in stool. No anal or rectal pain. Will get chills in the lens shaper grinder or late at night. 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 [...] not helpful Physical Exam: Most Recent Vitals: 10/07/17 0947 BP: 129/78 Pulse: 64 Height: 5'6 Weight - Scale: (!) 159.2 kg (351 lb) GENERAL: Healthy-appearing in no acute distress. Appears stated age. Well nourished. SKIN: Many tattoos. No lesions, rashes, lumps, or angiomas on exposed skin. NEURO: Alert and oriented to person, place, time, and situation. Cranial nerves II-XII intact. PSYCH: Mood appropriate. Good eye contact. Normal interaction. Answers all questions appropriately. Labs: Lab Results Component Value Date WBC 8.6 07/16/2017 HGB 11.6 (L) 07/16/2017 HCT 34.5 (L) 07/16/2017 MCV 87.6 07/16/2017 PLATELET 128 (L) 07/16/2017 Lab Results Component Value Date NA 139 07/16/2017 K 4.0 07/16/2017 CL 101 07/16/2017 CO2 26 07/16/2017 BUN 11 07/16/2017 CREATININE 1.05 07/16/2017 GLUCOSE 107 07/16/2017 CALCIUM 9.0 07/16/2017 ESTGFR >60 07/16/2017 Lab Results Component Value Date ALT 35 07/13/2017 AST 193 (H) 07/13/2017 ALKPHOS 44 07/13/2017 BILITOT 0.6 07/13/2017 ALBUMIN 3.0 (L) 07/13/2017 PROT 6.0 (L) 07/13/2017 ASSESSMENT This is a very nice 46 year old man with a history of bipolar disorder who returns to me today in follow up for PAVAN. His symptoms first began after starting gabapentin for his bipolar disorder. Typical reflux symptoms with some dyspepsia. Partial response to PPI. EGD in September 2016 was normal. Nowarning signs. He has been changing his diet and lifestyle with significant weight loss. Since our last visit, he had a STEMI. Was hospitalized and started on plavix. Was unable to do EGD and Farmer pH. Has been taking pantoprazole once daily. Taking medication appropriately. Today, he also complains of bloating and diarrhea. He does not meet SEKOU IV criteria due to chronicity of symptoms. 1. DYSPHAGIA Unclear etiology. Behaves more like esophageal dysphagia. He is currently taking plavix. Consider utility of barium swallow. Consider utility of HREM. Ddx; Schatzki ring, esophageal stricture, GERD, esophageal dysmotility 2. PAVAN Unclear etiology. Symptoms not controlled on once daily PPI. Increase to pantoprazole 40mg twice daily. Recommend EGD for evaluation. Recommend Farmer pH on once daily PPI therapy. Ddx: GERD, gastritis/gastropathy, PUD 3. BLOATING Unclear etiology. Consider utility of HBT. Consider low-FODMAP diet. 4. DIARRHEA Unclear etiology. We discussed the pathophysiology of diarrhea including central/visceral hypersensitivity, gut dysbiosis, diet, and immune function. He is concerned about CD. We will do some labs torule out CD and a pancreatic etiology. He was also slightly anemic during hospitalization for STEMI, although it is possible this was dilutional. We will recheck his CBC today. Consider utility of colonoscopy. Ddx; carbohydrate malabsorption, BAM, SIBO/dysbiosis, CD, IBD 5. ELEVATED LFTs Recommend fibroscan and hepatology referral. PLAN 1. GERD diet and lifestyle modifications. Continue losing weight. 2. Upper endoscopy with anesthesia. 3. Farmer pH on once daily PPI 4. Pantoprazole 40mg twice daily in the morning and evening on an empty stomach approximately 30-60minutes before eating breakfast and dinner. May use TUMs or gaviscon for breakthrough symptoms. 5. CBC, TTG/IgA, IgA, Lipase today 6. Hepatology referral 7. Fibroscan 8. GIF approximately 3 weeks after testing. Patient agrees with the above plan. I did my best to answer their questions. Signed, Breonna Ambrocio APRN 10/07/17 10:53 AM Section of Gastroenterology & Hepatology [facility] ?? documented in this encounter Miscellaneous Notes * Addendum Note - Sindy Lester - 10/07/2017 11:21 AM ESTAddended by: SINDY LESTER on: 10/07/2017 11:21 AM Modules accepted: Orders documented in this encounter Plan of Treatment Upcoming Encounters Date Type Department Care Team (Latest Contact Info) Description 06/07/2024 2:00 PM EDT Office [place] [address] Joan Castro MD [facility] [place] [address] 06/11/2024 1:03 PM EDT Hospital Encounter [place] [phone] Rachel Carrasco MD [facility] [place] [address] 06/11/2024 1:03 PM EDT - 06/11/2024 1:58 PM EDT Surgery [place] [phone] Rachel Carrasco MD [facility] [place] [address] CYSTO, REMOVAL OF STENT, FOREIGN BODY OR CALCULUS, SIMPLE (WRVU 2.81) 06/23/2024 10:00 AM EDT Office Visit Cardiology at [address] [phone] Mo Horne MD [facility] [place] [address] Scheduled Orders Name Type Priority Associated Diagnoses Orde r Schedule UPPER GI ENDOSCOPY Procedures Routine Dysphagia, unspecified type Gastroesophageal reflux disease, esophagitis presence not specified Bloating Diarrhea, unspecified type Ordered: 10/07/2017 Farmer Capsule pH Test Procedures Routine Gastroesophageal reflux disease, esophagitis presence not specified Ordered: 10/07/2017 Scheduled Procedures Name Priority Associated Diagnoses Date/Ti me CYSTO, REMOVAL OF STENT, FOR EIGN BODY OR CALCULUS, SIMPLE (WRVU 2.81) NEPHROLITHIASIS 06/11/2024 1:03 PM EDT Scheduled Referrals Name Type Priority Associated Diagnoses Order Schedule Referral to Gastroenterology Outpatient Referral Routine Elevated LFTs Ordered: 10/07/2017 documented as of this encounter Procedures Procedure Name Priority Date/Time Associated Diagnosis Comments HEMOGRAM Routine 10/07/2017 11:27 AM EST Dysphagia, unspecified type Gastroesophageal reflux disease, esophagitis presence not specified Bloating Diarrhea, unspecified type Elevated LFTs DIFFERENTIAL, AUTOMATED Routine 10/07/2017 11:27 AM EST Dysphagia, unspecified type Gastroesophageal reflux disease, esophagitis presence not specified Bloating Diarrhea, unspecified type Elevated LFTs TISSUE TRANSGLUTAMINASE, IGA Routine 10/07/2017 11:27 AM EST Dysphagia, unspecified type Gastroesophageal reflux disease, esophagitis presence not specified Bloating Diarrhea, unspecified type CBC (WITH DIFF) Routine 10/07/2017 11:27 AM EST Dysphagia, unspecified type Gastroesophageal reflux disease, esophagitis presence not specified Bloating Diarrhea, unspecified type Elevated LFTs LIPASE Routine 10/07/2017 11:27 AM EST Dysphagia, unspecified type Gastroesophageal reflux disease, esophagitis presence not specified Bloating Diarrhea, unspecified type IGA Routine 10/07/2017 11:27 AM EST Dysphagia, unspecified type Gastroesophageal reflux disease, esophagitis presence not specified Bloating Diarrhea, unspecified type documented in this encounter Results * Differential, Automated (10/07/2017 11:27 AM EST) Neutrophils % 65.4 % [facility] Neutr Abs (ANC) 5.68 1.70 - 6.10 x10(3)/[facility] Lymphocytes % 26.3 % [facility] Lymphocytes Abs 2.3 0.9 - 3.2 x10(3)/[facility] Monocytes % 6.3 % [facility] Monocyte Abs 0.6 0.3 - 0.9 x10(3)/[facility] Eosinophils % 1.1 % [facility] Eosinophils Abs 0.1 0.0 - 0.4 x10(3)/[facility] Basophils % 0.6 % [facility] Basophils Abs 0.0 0.0 - 0.1 x10(3)/[facility] Immature Gran % 0.30 % [facility] Comment: Immature granulocytes(IG's)percentage and absolute count will include metamyelocytes, myelocytes, and promyelocytes. Blood smears from CBCs yielding IG's will be scanned manually for concordance. If this scan disagrees with the automated IG or if promyelocytes are noted, a manual differential will be performed. Amy Gran Abs 0.03 0.00 - 0.04 x10(3)/[facility] Blood specimen (specimen) 10/07/2017 11:27 AM EST 10/07/2017 11:42 AM EST Narrative Resulting Agency Comment Spec In Lab Breonna Ambrocio DIRECTOR [employer]UMNI RELATIONS HEMATOLOGY ORDER BELEN [facility] [place] [address] * (ABNORMAL) Hemogram (10/07/2017 11:27 AM EST) WBC 8.7 4.0 - 9.5 x10(3)/[facility] RBC 5.38 4.58 - 5.54 x10(6)/[facility] Hemoglobin 15.2 13.7 - 16.5 gm/dL [facility] Hematocrit 47.1 40.5 - 48.5 % [facility] MCV 87.5 82.9 - 93.1 fL [facility] MCH 28.3 27.5 - 32.1 pg [facility] MCHC 32.3 32.0 - 35.7 gm/dL [facility] Platelets 217 145 - 357 x10(3)/[facility] RDWSD 45.0 36.0 - 45.0 [facility] RDWCV 14.1(H) 11.4 - 13.8 % [facility] MPV 10.3 7.6 - 12.9 [facility] nRBC % Auto 0.0 % [facility] nRBC Abs Auto 0.000 0.000 - 0.000 x10(3)/mcL [facility] Blood specimen (specimen) 10/07/2017 11:27 AM EST 10/07/2017 11:42 AM EST Narrative Resulting Agency Comment Spec In Lab Breonna Smith Lolly BEJARANON HEMATOLOGY ORDER BELEN Performing Organization Address City/[facility] Co de Phone Number [facility] [place] [address] * IgA (10/07/2017 11:27 AM EST) IgA 264 70 - 400 mg/dL [facility] Blood specimen (specimen) 10/07/2017 11:27 AM EST 10/07/2017 11:41 AM EST Narrative Resulting Agency Comment Spec In Lab Breonna E Lolly BEJARANON IMMUNOLOGY ORDER BELEN Performing Organization Address [facility] Co de Phone Number [facility] [place] [address] * Tissue transglutaminase, IgA (10/07/2017 11:27 AM EST) Pathologist [facility] TTG IgA Ab 0.4 0.1 - 10.0 u/ml [facility] Comment: Negative = <7 U/mL Equivocal = 7-10 U/mL Positive = >10 U/mL Blood specimen (specimen) 10/07/2017 11:27 AM EST 10/08/2017 9:01 AM EST Narrative Resulting Agency Comment Spec In Lab Breonna Luis Lolly BEJARANON IMMUNOLOGY ORDER BELEN Performing Organization Address City/[facility] Co de Phone Number [facility] [place] [address] * Lipase (10/07/2017 11:27 AM EST) Lipase 28 0 - 60 unit/L [facility] Blood specimen (specimen) 10/07/2017 11:27 AM EST 10/07/2017 11:41 AM EST Narrative Resulting Agency Comment Spec In Lab Breonna Ambrocio DIRECTOR [employer]UM[employer] RELATIONS CHEMISTRY ORDERA BLES [facility] [place] [address] documented in this encounter Visit Diagnoses Diagnosis Dysphagia, unspecified type Gastroesophageal reflux disease, esophagitis presence not specified Bloating Flatulence, eructation, and gas pain Diarrhea, unspecified type Elevated LFTs Other abnormal blood chemistry documented in this encounter Care Teams Anesthesia Assistant Relationship Specialty Start Date End Date Bin Bowman MD [address] [place] [phone] PCP - General General Internal Medicine 04/21/1707/11 documented as of this encounter
--- OUTSIDE RECORDS SUMMARY | 2024-06-04 20:48 | XMS_ITS | Encounter Summary ---
Author Organization [facility] [place] [address] Care Team Providers Care Clay Dry Press Mixer Operator Name Role Phone Bin Bowman MD Primary Care Provider [phone] Reason for Visit * Reason Onset Date Comments Nausea 01/16/2018 Encounter Details Date Type Department Care Team (Late st Contact Info) Description 01/16/2018 Telephone [place] [phone] Aydin Lugo RN Nausea Social History Tobacco Use Types Packs/Day Years [...] encounter Miscellaneous Notes * Telephone Encounter - Aydin Lugo RN - 01/16/2018 4:03 PM EST Per Breonna Ambrocio, COLLATOR HAND: I did send in a small script for ondansetron, BUT I am concerned by the new onset of symptoms. ?? Please have him follow up with PCP if he is continuing to have chills/fevers. Relayed above to patient. Reviewed dosing instructions for zofran. Patient states he now has a thermometer. Temperature is 98.4 F Advised patient to recheck if he has chills. If febrile call PCP to discuss. * Telephone Encounter - Aydin Lugo RN - 01/16/2018 1:13 PM EST Patient calls complaining of nausea x 1 week. Whenever he eats he gets nauseated. Has vomited on several occasions. Little appetite. Has not vomited today. Able to tolerate water and liquids without nausea. States that he is drinking plenty of fluids. Complains of chills. Does not own a thermometer. Intermittent diarrhea. Has a runny nose, but this is typical for him. Some lower back pain. Denies generalized body aches. Denies cough. Taking Nexium 40 mg once daily in the morning. Takes on an empty stomach. Hasn't been able to eat breakfast recently. Tried gaviscon but this gave him heartburn. Sleeping well, doesn't wake up in the middle of the night. Continuing to lose weight. Is at 330 lb now (21 lb loss since 10/07/17) Scheduled to see the liver team and Breonna Ambrocio next week (01/20) Patient requests an antiemetic to help with the nausea until he is seen in clinic. documented in this encounter Plan of Treatment Upcoming Encounters Date Type Department Care Team (Latest Contact Info) Description 06/07/2024 2:00 PM EDT Office [place] [phone] [facility] [place] [address] 06/11/2024 1:03 PM EDT Hospital Encounter [place] [phone] [facility] [place] [address] 06/11/2024 1:03 PM EDT - 06/11/2024 1:58 PM EDT Surgery [place] [address] [facility] [place] [address] CYSTO, REMOVAL OF STENT, FOREIGN BODY OR CALCULUS, SIMPLE (WRVU 2.81) 06/23/2024 10:00 AM EDT Office Visit Cardiology at [address] [place] [address] [facility] [place] [address] Scheduled Procedures Name Priority Associated Diagnoses Date/Ti me CYSTO, REMOVAL OF STENT, FOR EIGN BODY OR CALCULUS, SIMPLE (WRVU 2.81) NEPHROLITHIASIS 06/11/2024 1:03 PM EDT documented as of this encounter Visit Diagnoses Not on filedocumented in this encounter Care Teams Clay Dry Press Mixer Operator Relationship Specialty Start Date End Date Bin Bowman MD [address] [place] [id number] PCP - General General Internal Medicine 04/21/1707/11 documented as of this encounter
--- OUTSIDE RECORDS SUMMARY | 2024-06-04 20:48 | XMS_ITS | Encounter Summary ---
Author Organization [facility] [address] Care Team Providers Care Research Clerk Name Role Phone Bin Bowman MD Primary Care Provider Reason for Visit * Surgical (Routine) - Specialty Diagnoses / Procedures Referred By Zeyad mishra Referred To Contact Gastroenterology Diagnoses Gastroesophageal reflux disease, esophagitis presence not specified GERD Procedures Farmer Capsule pH Test Farmer Breonna Ambrocio, RESIDENTIAL TREATMENT STAFF [address] [place] [address] [facility] [address] [place] [address] Referral ID Status Reason Start Date Expiration Date V isits Requested Visits Authorized [id number] Consult, Test & Treat 10/07/2017 10/07/2018 1 1 Encounter Details Date Type Department Care Team (Latest Contact Info) Description 12/29/2017 10:00 AM EST Procedure [place] [address] Gastroesophageal reflux disease, esophagitis presence not specified [...] as of this encounter Progress Notes * Dimple Wolf RN - 12/29/2017 10:00 AM EST 11:25am Farmer capsule deployed following EGD with Dr. Tucker Placed at 34cm from incisors without difficulty. Study being performed on Nexium 40mg once daily First pH- 6.6 Farmer teaching completed prior to procedures. Patient verbalized understanding of Farmer procedure and use of the navy fighter pilot. documented in this encounter Plan of Treatment Upcoming Encounters Date Type Department Care Team (Latest Contact Info) Description 06/07/2024 2:00 PM EDT Office [place] [phone] Joan Castro MD [facility] [place] [address] 06/11/2024 1:03 PM EDT Hospital Encounter [place] [phone] Rachel Carrasco MD [facility] [place] [address] 06/11/2024 1:03 PM EDT - 06/11/2024 1:58 PM EDT Surgery [place] [phone] Rachel Carrasco MD [facility] [place] [address] CYSTO, REMOVAL OF STENT, FOREIGN BODY OR CALCULUS, SIMPLE (WRVU 2.81) 06/23/2024 10:00 AM EDT Office Visit Cardiology at [address] [phone] Mo Horne MD [facility] [place] [address] Scheduled Orders Name Type Priority Associated Diagnoses Orde r Schedule Farmer Capsule pH Test Procedures Routine Gastroesophageal reflux disease, esophagitis presence not specified Ordered: 10/07/2017 Scheduled Procedures Name Priority Associated Diagnoses Date/Ti me CYSTO, REMOVAL OF STENT, FOR EIGN BODY OR CALCULUS, SIMPLE (WRVU 2.81) NEPHROLITHIASIS 06/11/2024 1:03 PM EDT documented as of this encounter Visit Diagnoses Diagnosis Gastroesophageal reflux disease, esophagitis presence not specified documented in this encounter Care Teams Research Clerk Relationship Specialty Start Date End Date Bin Bowman MD [address] [place] [id number] PCP - General General Internal Medicine 04/21/1707/11 documented as of this encounter
--- OUTSIDE RECORDS SUMMARY | 2024-06-04 20:48 | XMS_ITS | Encounter Summary ---
Author Organization Formerly [facility] [place] [address] Care Team Providers Care Nutrition Aides Teacher Name Role Phone Bin Bowman MD Primary Care Provider [phone] Encounter Details Date Type Department Care Team (Late st Contact Info) Description 12/29/2017 11:11 AM EST Anesthesia Event [place] [address] Nicole Hardin [facility] [place] [address] Anesthesia Record Procedure Summary Procedure Name Responsible Anesthesiologist Anesthesia Start Time Anesthesia Stop Time EGD, UPPER GI ENDOSCOPY (WRVU 2.09) (Trunk) Nicole Hardin DO 12/29/17 1111 12/29/17 1135 Events Date Time Event Comment 12/29/2017 1017 1111 AN Verify 1111 Start 1111 An Start Data 1117 An Induction 1118 Anesthesia Ready 1135 an stop data 1135 Recovery or ICU Handoff Kacey ent care was transferred to the destination unit staff after review of the patient's medical history, current anesthetic/surgical status and plan, according to the Provider Handoff Checklist. 1135 Stop Meds Name Total IV Lidocaine 60 mg Propofol 130 mg Propofol INF 286.2 mg lactated Ringers infusion 0 mL * Agents Name O2 Air N2O O2 Auxiliary Flowmeter 1 * Blood No blood administrations on file. Lines, Drains, and Airways Type Details Placement Removal (RETIRED) Peripheral IV Line - Single Lumen 12/29/17; 0948; 12/29/17; 1232 12/29/17 0948 by Nasrin Brown RN 12/29/17 1232 by Yudi Marshall RN documented in this encounter Social History [...] OR Notes * Anesthesia Postprocedure Evaluation - Nicole Hardin DO - 12/29/2017 5:17 PM EST [facility] Department of Anesthesiology Post-procedure Note Patient: Rolo Aguilar Procedure Summary Date Anesthesia Start Anesthesia Stop Room / Location 12/29/17 1111 1135 [facility] 4 / [facility] Procedure Diagnosis Surgeon Responsible Provider EGD, UPPER GI ENDOSCOPY (N/A Trunk); UPPER GASTROINTESTINAL ENDOSCOPY,WITH BIOPSY SINGLE OR MULTIPLE (WRVU 2.49) (N/A ) Bloating; Gastroesophageal reflux disease, esophagitis presence not specified; Dysphagia, unspecified type; Diarrhea, unspecified type (?GERD, PUD, ?Gastritis, stricture; OJEDA placement; (consult)) Yusuf Tucker MD Joshi, [place], DO All Anesthesia Providers: Anesthesiologist: Nicole Hardin DO CIGAR ROLLER: Annabella Lorenzo CRNA Most Recent Vitals: 12/29/17 1150 BP: Pulse: Resp: SpO2: 97% Pain Patient Location: PACU/SDP Level of Consciousness: Awake and Alert Pain Management: Satisfactory Analgesia PONV: None Cardiovascular Status: Hemodynamically Stable Respiratory Status: Stable Respiratory Status Postoperative Fluid Status: Intravascular EUvolemia Possible Anesthetic Complications: NONE apparent at time of evaluation Final Primary Anesthesia Type: MAC (The anesthetic type performed was the same as planned.) Comments: * Anesthesia Preprocedure Evaluation - Nicole Hardin DO - 12/28/2017 2:18 PM EST Pre-Anesthesia Evaluation for: Rolo Aguilar a 47 y.o. male. Procedure(s): EGD, UPPER GI ENDOSCOPY Patient Active Problem List Diagnosis ??? STEMI (ST elevation myocardial infarction) No past medical history on file. No past surgical history on file. Social History Substance Use Topics ??? Smoking status: Former Smoker Types: Cigarettes ??? Smokeless tobacco: Former User Types: Chew ??? Alcohol use No History Drug Use No Allergies Allergen Reactions ??? Gabapentin ??? Wellbutrin [Bupropion Hcl] ??? Zoloft [Sertraline] Medications: MAR and/or home medications have been reviewed. Physical Exam: There were no vitals filed for this visit. There is no height or weight on file to calculate BMI. Airway Assessment: Mallampati: I TM distance: >3 FB Neck ROM: full Cardiovascular Assessment: Rhythm: regular Rate: normal Pulmonary Assessment: breath sounds clear to auscultation Dental Assessment: Comment: Broken molars Misc Assessment: Patient is wearing No contact(s). IV access: Peripheral line Anesthesia Plan: ASA 3 MAC, Mod to high risk. Super morbid obesity STEMi 07/2017- very active (exercises 3 times per week) and has lost 70 lbs since TX. No further symptoms of chest pressure since TX. Follow up Echo in 11/2017- resolved WMA according to patient. Patient nervous because he woke up during last EGD. Rarely snores since losing weight. denies that him holding his breath during sleep. NPO confirmed Region - Other Informed Consent: Anesthetic plan and risks discussed with patient and spouse. Plan discussed with CIGAR ROLLER and attending. PAT Staff Note documented in this encounter Plan of Treatment Upcoming Encounters Date Type Department Care Team (Latest Contact Info) Description 06/07/2024 2:00 PM EDT Office Visit [place] [address] Joan Castro MD [facility] [place] [address] 06/11/2024 1:03 PM EDT Hospital Encounter [place] [address] Rachel Carrasco MD [facility] [place] [address] 06/11/2024 1:03 PM EDT - 06/11/2024 1:58 PM EDT Surgery [place] [phone] Rachel Carrasco MD [facility] [place] [address] CYSTO, REMOVAL OF STENT, FOREIGN BODY OR CALCULUS, SIMPLE (WRVU 2.81) 06/23/2024 10:00 AM EDT Office Visit Cardiology at [address] [place] [address] Mo Horne MD [facility] [place] [address] Scheduled Procedures Name Priority Associated Diagnoses Date/Ti me CYSTO, REMOVAL OF STENT, FOR EIGN BODY OR CALCULUS, SIMPLE (WRVU 2.81) NEPHROLITHIASIS 06/11/2024 1:03 PM EDT documented as of this encounter Visit Diagnoses Not on filedocumented in this encounter Administered Medications Inactive Administered Medications - up to 3 most recent administrations Medication Order MAR Action Action Date Dose Rate Site lactated Ringers infusion 100 mL/hr, Intravenous, CONTINUOUS, Starting on Fri12/29/17 at 0945, Until Fri12/29/17 at 1232, Endoscopy (Day of Procedure) New Bag 12/29/2017 11:11 AM EST New Bag 12/29/2017 9:45 AM EST 100 mL/hr 100 mL/hr lidocaine (PF) (XYLOCAINE) 100 mg/5 mL (2 %) injection PRN, Starting on Fri12/29/17 at 1117, Until Fri12/29/17 at 1135, Anesthesia Intra-op, Routine Given 12/29/2017 11:17 AM EST 60 mg propofol (DIPRIVAN) 10 mg/mL bolus injection (Anesthesia) PRN, Starting on Fri12/29/17 at 1117, Until Fri12/29/17 at 1135, Anesthesia Intra-op Given 12/29/2017 11:19 AM EST 30 mg Given 12/29/2017 11:17 AM EST 100 mg propofol (DIPRIVAN) infusion CONTINUOUS PRN, Starting on Fri12/29/17 at 1117, Until Fri12/29/17 at 1135, Anesthesia Intra-op, Routine New Bag 12/29/2017 11:17 AM EST 150 mcg/kg/min 143.1 mL/hr documented in this encounter Care Teams Nutrition Aides Teacher Relationship Specialty Start Date End Date Bin Bowman MD [address] [place] [id number] PCP - General General Internal Medicine 04/21/1707/11 documented as of this encounter
--- OUTSIDE RECORDS SUMMARY | 2024-06-04 20:48 | XMS_ITS | Encounter Summary ---
Author Organization [facility] [place] [address] Care Team Providers Care Application Helper Name Role Phone Bin Bowman MD Primary Care Provider Encounter Details Date Type Department Care Team (Late st Contact Info) Description 01/23/2018 External Results [place] [address] Franci Brooks, RN Social History Tobacco Use Types Packs/Day [...] 2:00 PM EDT Office [place] [address] Joan Castro MD [facility] [place] [address] 06/11/2024 1:03 PM EDT Hospital Encounter [place] [address] Rachel Carrasco MD [facility] [place] [address] 06/11/2024 1:03 PM EDT - 06/11/2024 1:58 PM EDT Surgery Main Operating Room [facility] [place] [address] Rachel Carrasco MD [facility] [place] [address] CYSTO, REMOVAL OF STENT, FOREIGN BODY OR CALCULUS, SIMPLE (WRVU 2.81) 06/23/2024 10:00 AM EDT Office Visit Cardiology at [address] [phone] Mo Horne MD [facility] [place] [address] Scheduled Procedures Name Priority Associated Diagnoses Date/Ti me CYSTO, REMOVAL OF STENT, FOR EIGN BODY OR CALCULUS, SIMPLE (WRVU 2.81) NEPHROLITHIASIS 06/11/2024 1:03 PM EDT documented as of this encounter Procedures Procedure Name Priority Date/Time Associated Diagnosis Comments EXTERNAL LAB CBC CMP THYROID RESULTS PANEL Routine 01/23/2018 documented in this encounter Results * CBC / CMP / Thyroid External Results (01/23/2018) Sodium 138 Potassium 4.2 Chloride 99 CO2 28 BUN 11 Creatinine 0.9 Calcium 9.2 Total Protein 7.5 Albumin 4.2 Total Bilirubin 0.6 Bili, Direct 0.2 Alk Phos 65 AST 20 ALT 35 GGT 28 01/23/2018 Historical Provider POINT OF CARE EMILI T ORDERABLES documented in this encounter Visit Diagnoses Not on filedocumented in this encounter Care Teams Application Helper Relationship Specialty Start Date End Date Bin Bowman MD [address] [place] [id number] PCP - General General Internal Medicine 04/21/1707/11 documented as of this encounter
--- OUTSIDE RECORDS SUMMARY | 2024-06-04 20:48 | XMS_ITS | Encounter Summary ---
Author Organization [facility] Address [facility] [place] [address] Care Team Providers Care Warehouse Specialist Name Role Phone Bin Bowman MD Primary Care Provider [phone] Encounter Details Date Type Department Care Team (Late st Contact Info) Description 12/29/2017 10:00 AM EST - 12/29/2017 10:30 AM EST [place] [address] Yusuf Tucker MD [facility] [place] [address] EGD, UPPER GI ENDOSCOPY (WRVU 2.09) Social History Tobacco Use Types Packs/Day Years [...] Sign Reading Time Taken Comments Blood Pressure 106/65 12/29/2017 11:45 AM EST Pulse 80 12/29/2017 9:28 AM EST Temperature - - Respiratory Rate 16 12/29/2017 9:28 AM EST Oxygen Saturation 97% 12/29/2017 11:50 AM EST Inhaled Oxygen Concentration - - Weight - - Height - - Body Mass Index - - documented in this encounter Discharge Instructions * Discharge Instructions* Yudi Marshall RN - 12/29/2017 11:38 AM EST Images from the original note were not included. UPPER GI ENDOSCOPY with Farmer PH Capsule WHAT TO EXPECT AFTER THE PROCEDEURE After the test you may feel a little more gassy or bloated than usual. This is normal. ACTIVITY Because of the sedation that you recieved Your judgement and reaction time are affected ?? Go home and rest quietly for the remainder of the day. You may resume your normal activities tomorrow. ?? Change from one position to the next slowly. You may loose your balance unexpectedly. ?? Be careful on stairs, as you may be unsteady on your feet. FOR THE NEXT 24 HRS ?? DO NOT DRIVE OR OPERATE ANY MACHINERY ?? DO NOT DRINK ALCOHOLIC BEVERAGES ?? DO NOT SIGN LEGAL DOCUMENTS or make important decisions ?? If you are a smoker: DO NOT SMOKE WHILE YOU ARE ALONE Diet ?? Start by eating small portions of foods that ordinarily won't upset your stomach. Be gentle withwhat you choose to start with. ?? Drink plenty of fluids ( unless otherwise told not to) Medications ?? You may have a mild sore throat. Ice chips, popsicles, over- the-counter throat lozenges or spaymay help numb your throat. This procedure should not cause a fever. ?? You may experience some chest discomfort that may or may not get worse with swallowing. If this happens try drinking a warm liquid which will help relax the esophagus. Or use pain medicine that you normally would use ( Tylenol, advil ...). Peppermint tea may also be useful. This discomfort usually passes after 24-48 hrs. Other Instructions Be sure to carry your tool dresser within 3 feet at all times . Follow the instructions that were givento you along with your diary. IV SITE may get red or tender. This is normal. You may use warm compresses 20 minutes at a time on and off for the next day or so. If the tenderness +/or redness increases or foul drainage and a red streak occurs, please contact your PCP WHEN SHOULD YOU CALL FOR HELP? Call 911 anytime you think that you need emergency care. For example, call if: You passed out (lost consciousness). You cough up blood. You vomit blood or what looks like coffee grounds. You pass maroon or very bloody stools. Call your doctor now or seek immediate medical attention if: Severe chest pain that gets worse with swallowing You have trouble swallowing. You have belly pain. Your stools are black or tarlike or have streaks of blood. You are sick to your stomach or cannot keep fluids down. Watch closely for changes in your health, and be sure to contact your doctor IF Your throat still hurts after a day or two You do not get better as expected. Friday-Friday Same Day Endo [phone] [id number]-[id number] Otherwise contact [phone] and ask to speak to the dry house worker correctional corporal Denise Wolf RN [phone] if any problems with tool dresser Follow-up care is a garcia part of your treatment and safety. Be sure to make and go to all appointments, and call your doctor if you are having problems. Instructions have been reviewed and patient expresses understanding Upper GI Endoscopy: What to Expect at Home Your Recovery After you have an endoscopy, you will stay at the hospital or clinic for 1 to 2 hours. This will allow the medicine to wear off. You will be able to go home [...] you care for yourself at home? Activity ?? Rest as much as you need to after you go home. ?? You should be able to go back to your usual activities the day after the test. Diet ?? Follow your doctor's directions for eating after the test. ?? Drink plenty of fluids (unless your doctor has told you not to). Medications ?? If you have a sore throat the day after the test, use an dxlm-rib-rdcqkpl spray to numb your throat. Follow-up care is a garcia part of your treatment and safety. Be sure to make and go to all appointments, and call your doctor if you are having problems. It's also a good idea to know your test resultsand keep a list of the medicines you take. When should you call for help? Call 911 anytime you think you may need emergency care. For example, call if: ? ?? You passed out (loses consciousness). ? ?? You have trouble breathing. ? ?? You pass maroon or bloody stools. ?Call your doctor now or seek immediate medical care if: ? ?? You have pain that does not get better after your take pain medicine. ? ?? You have new or worse belly pain. ? ?? You have blood in your stools. ? ?? You are sick to your stomach and cannot keep fluids down. ? ?? You have a fever. ? ?? You cannot pass stools or gas. ?Watch closely for changes in your health, and be sure to contact your doctor if: ? ?? Your throat still hurts after a day or two. ? ?? You do not get better as expected. Where can you learn more? Visit our health information library at [email or web address]. You can also view health information on [employer], your personal patient account. Log in or sign uptoday. Enter J454 in the search box to learn more about Upper GI Endoscopy: What to Expect at Home. Current as of: March 21, 2017 Content Version: 11.4 ?? [id number] [employer]. Care instructions adapted under license by [facility]. If you have questions about a medical condition or this instruction, always ask your healthcare professional. [employer] disclaims any warranty or liability for your use of this information. documented in this encounter Medications at Time of Discharge Medication Sig Dispensed Refills Start Date End Date aspirin 81 mg Tablet, Delayed Release (E.C.) Take 1 tablet by mouth daily. 30 tablet 3 07/16/2017 clonazePAM (KLONOPIN) 1 mg Tablet Take 1 mg by mouth 3 times daily as needed for Anxiety. esomeprazole (NEXIUM) 40 mg Capsule, Delayed Release(E.C.) Take 40 mg by mouth daily. 01/20/2018 pantoprazole (PROTONIX) 40 mg Tablet, Delayed Release (E.C.) Take 1 tablet by mouth 2 times daily. 180 tablet 3 10/07/2017 01/20/2018 atorvastatin (LIPITOR) 80 mg Tablet Take 1 tablet by mouth every evening. 90 tablet 3 07/16/2017 12/19/2020 clopidogrel (PLAVIX) 75 mg Tablet Take 1 tablet by mouth daily. 90 tablet 3 07/16/2017 07/21/2018 lisinopril (PRINIVIL;ZESTRIL) 2.5 mg Tablet Take 1 tablet by mouth daily. 90 tablet 3 07/16/2017 05/26/2020 meTOPROLOL succinate (TOPROL-XL) 50 mg Tablet Sustained Release 24 hr Take 1 tablet by mouth daily. 30 tablet 12 07/16/2017 05/26/2020 lamoTRIgine (LAMICTAL) 200 mg Tablet Take 1 tablet by mouth daily. 30 tablet 3 07/16/2017 01/13/2021 ACETYLCYSTEINE (NAC ORAL) Take by mouth. 03/25/2019 ziprasidone (GEODON) 20 mg Capsule Take 20 mg by mouth every other day. 07/20/2018 documented as of this encounter H&P Notes * Yusuf Tucker MD - 12/29/2017 10:59 AM EST Gastroenterology and Hepatology Pre-Procedure History and Physical Exam Procedure: EGD: Indication: GERD, Bloating Patient Active Problem List Diagnosis Code ??? STEMI (ST elevation myocardial infarction) I21.3 EXAM: HEENT: Airway examined, oropharynx clear Mallampati Score: II (soft palate, uvula, fauces visible) LUNGS: Clear to auscultation HEART: Regular rate and rhythm, normal S1, S2 ABDOMEN: Normal bowel sounds, soft, non tender, non distended, A/P Proceed with the planned endoscopic procedure. ASA 3 - Patient with moderate systemic disease with functional limitations Sedation Plan: anesthesia Risks and benefits of the procedure explained to the patient. Consent signed. Electronically signed by: Yusuf Tucker MD Department of Gastroenterology [facility] 12/29/2017 documented in this encounter Plan of Treatment Upcoming Encounters Date Type Department Care Team (Latest Contact Info) Description 06/07/2024 2:00 PM EDT Office [place] [address] Joan Castro MD [facility] [place] [address] 06/11/2024 1:03 PM EDT Hospital Encounter [place] [phone] Rachel Carrasco MD [facility] [place] [place] [address] 06/11/2024 1:03 PM EDT - 06/11/2024 1:58 PM EDT Surgery [place] [phone] Rachel Carrasco MD [facility] [place] [place] [address] CYSTO, REMOVAL OF STENT, FOREIGN BODY OR CALCULUS, SIMPLE (WRVU 2.81) 06/23/2024 10:00 AM EDT Office Visit Cardiology at [address] [place] [address] Mo Horne MD [facility] [place] [address] Scheduled Procedures Name Priority Associated Diagnoses Date/Ti me CYSTO, REMOVAL OF STENT, FOR EIGN BODY OR CALCULUS, SIMPLE (WRVU 2.81) NEPHROLITHIASIS 06/11/2024 1:03 PM EDT documented as of this encounter Procedures Procedure Name Priority Date/Time Associated Diagnosis Comments SURGICAL PATHOLOGY REPORT Routine 12/29/2017 11:27 AM EST SPECIMEN TO PATHOLOGY Routine 12/29/2017 11:27 AM EST SPECIMEN TO PATHOLOGY Routine 12/29/2017 11:27 AM EST SPECIMEN TO PATHOLOGY Routine 12/29/2017 11:27 AM EST SPECIMEN TO PATHOLOGY Routine 12/29/2017 11:27 AM EST UPPER GASTROINTESTINAL ENDOSCOPY,WITH BIOPSY SINGLE OR MULTIPLE (WRVU 2.39) 12/29/2017 11:12 AM EST Bloating Gastroesophageal reflux disease, esophagitis presence not specified Dysphagia, unspecified type Diarrhea, unspecified type EGD, UPPER GI ENDOSCOPY (WRVU 2.09) 12/29/2017 11:12 AM EST Bloating Gastroesophageal reflux disease, esophagitis presence not specified Dysphagia, unspecified type Diarrhea, unspecified type UPPER GI ENDOSCOPY Routine 12/29/2017 11 :00 AM EST documented in this encounter Results * Surgical Pathology Report (12/29/2017 11:27 AM EST) FINAL DIAGNOSIS (AP) [id number] ? Location: 4; [facility]; A The signing pathologist has (i) examined the relevant preparation(s) for the specimen(s) and (ii) rendered or confirmed the diagnosis(es). . ?Surgical Pathology DIAGNOSIS A - Duodenum, ??biopsy: - ??Duodenal mucosa, negative for diagnostic abnormality ??. B - Gastric, ??biopsy: - Body/fundic-typ e mucosa, negative for diagnostic abnormality. C - Distal esophagus, biopsy: - Squamous mucosa negative for diagnostic abnormality. D - Mid esophagus, biopsy: - Squamous mucosa negative for diagnostic abnormality. Electronically signed by: ??Tyson Durbin MD Verified: ??01/01/2018 ?Pathologist Performed at: ??-[facility] [place] Dept. [place]ology, [place], [place] CLINICAL INFORMATION Specimen Submitted: A - Duodenal biopsies B - Gastric biopsies C - Distal esophageal biopsies D - Mid esophageal biopsies Clinical History: EGD for GERD bloating Clinical Diagnosis: Same SPECIMEN PROCESSING A - Labeled/Fixativ e: Duodenal biopsies, formalin. Quantity/Size: Five, averaging 0.3 cm. Tissue Description: ??Soft, singh-pink tissue ??. Sections/Proces sing: (T1) B - Labeled/Fixativ e: Gastric biopsies, formalin. Quantity/Size: Four, 0.2-0.5 cm. Tissue Description: ??Soft, singh-pink tissue ??. Sections/Proces sing: (T1) C - Labeled/Fixativ e: Distal esophageal biopsies, formalin. Quantity/Size: Single, 0.4 cm. Tissue Description: ??Soft, loera-white tissue ??. Sections/Proces sing: (T1) D - Labeled/Fixativ e: Mid esophageal biopsies, formalin. Quantity/Size: Single, 0.3 cm. Tissue Description: ??Soft, singh-pink tissue ??. Sections/Proces sing: (T1) ??ejr 01/01/2018 2:42 PM EST [facility] 12/29/2017 11:2 7 AM EST Yusuf Tucker MD PATHOLOGY/CYTOLOGY O [place] Performing Organization Address [facility] Co de Phone Number [facility] [place] [address] * Specimen to Pathology (12/29/2017 11:27 AM EST) AP Specimen 12/29/2017 11:2 7 AM EST 12/29/2017 1:17 PM EST Narrative [facility] - 12/29/2017 1:17 PM EST Specimen requisition ordered. ??Separate Pathology report to follow Resulting Agency Comment Spec In Lab Yusuf Tucker MD PATHOLOGY/CYTOLOGY O [place] Performing Organization Address [facility] Co de Phone Number [facility] [place] [address] * Specimen to Pathology (12/29/2017 11:27 AM EST) AP Specimen 12/29/2017 11:2 7 AM EST 12/29/2017 1:17 PM EST Narrative [facility] - 12/29/2017 1:17 PM EST Specimen requisition ordered. ??Separate Pathology report to follow Resulting Agency Comment Spec In Lab Yusuf Tucker MD PATHOLOGY/CYTOLOGY O [place] Performing Organization Address [facility] [place] [address] * Specimen to Pathology (12/29/2017 11:27 AM EST) AP Specimen 12/29/2017 11:2 7 AM EST 12/29/2017 1:17 PM EST Narrative [facility] - 12/29/2017 1:17 PM EST Specimen requisition ordered. ??Separate Pathology report to follow Resulting Agency Comment Spec In Lab Yusuf Tucker MD PATHOLOGY/CYTOLOGY O [place] Performing Organization Address [facility] [place] [address] * Specimen to Pathology (12/29/2017 11:27 AM EST) AP Specimen 12/29/2017 11:2 7 AM EST 12/29/2017 1:17 PM EST Narrative [facility] - 12/29/2017 1:17 PM EST Specimen requisition ordered. ??Separate Pathology report to follow Resulting Agency Comment Spec In Lab Yusuf Tucker MD PATHOLOGY/CYTOLOGY O [place] Performing Organization Address [facility] [place] [address] * UPPER GI ENDOSCOPY (12/29/2017 11:00 AM EST) UPPER GI ENDOSCOPY [facility] Endoscopy Procedure Date: 12/29/2017 11:00 AM ? Patient Name: Rolo Aguilar ? Date of : 1970 ? Age: 47 ? Order #: [id number] ? Instrument Name: [id number] ? Procedure: ? Upper GI endoscopy Indications: ? Heartburn, bloating Providers: ? Yusuf Tucker MD, Eridana G. ? Miko Gibbons, Silver Buffer Referring : ?Bin Bowman MD Medicines: ? Monitored Anesthesia Care Complications: ? No immediate complications. Procedure: ? Pre-Anesthesia Assessment: ? - Prior to the procedure, a History ? and Physical was performed, and ? patient medications and allergies ? were reviewed. The patient is ? competent. The risks and benefits of ? the procedure and the sedation ? options and risks were discussed with ? the patient. All questions were ? answered and informed consent was ? obtained. Patient identification and ? proposed procedure were verified by ? the physician and the nurse in the ? pre-procedure area in the procedure ? room. Mental Status Examination: ? alert and oriented. Airway ? Examination: normal oropharyngeal ? airway and neck mobility. Respiratory ? Examination: clear to auscultation. ? CV Examination: normal. ASA Grade ? Assessment: III - A patient with ? severe systemic disease. After ? reviewing the risks and benefits, the ? patient was deemed in satisfactory ? condition to undergo the procedure. ? The anesthesia plan was to use ? monitored anesthesia care (MAC). ? Immediately prior to administration ? of medications, the patient was ? re-assessed for adequacy to receive ? sedatives. The heart rate, ? respiratory rate, oxygen saturations, ? blood pressure, adequacy of pulmonary ? ventilation, and response to care ? were monitored throughout the ? procedure. The physical status of the ? patient was re-assessed after the ? procedure. ? The procedure, indications, benefits, ? risks and alternatives were explained ? to the patient. Specifically ? discussed were potential ? complications including, but not ? limited to, bleeding, perforation, ? infection, missing a cancer, and ? adverse medication reactions. The ? Endoscope was introduced through the ? mouth, and advanced to the second ? part of duodenum. The patient ? tolerated the procedure well. The ? upper GI endoscopy was accomplished ? without difficulty. The patient ? tolerated the procedure well. ? Findings: ? The examined esophagus was normal. Biopsies were ? taken with a cold forceps for histology from the mid ? and distal esophagus. ? The entire examined stomach was normal. Biopsies were ? taken with a cold forceps for Helicobacter pylori ? testing. ? The examined duodenum was normal. Biopsies for ? histology were taken with a cold forceps for ? evaluation of celiac disease. ? Moderate Sedation: ? Not applicable - See Anesthesia documentation Impression: ?- Normal esophagus s/p mid and distal ? esophageal biopsies. ? - Normal stomach. Biopsied. ? - Normal examined duodenum. Biopsied. ? - Following endoscopy, Farmer pH probe ? placed Recommendation: ?- Discharge to home ? - Continue Pantoprazole as ? prescribed, 30 min before breakfast ? - Avoid NSAIDs ? - F/u path and pH probe testing ? Attending Participation: ? I personally performed the entire procedure. ? Dr. Goldberg Garrett Yusuf Tucker MD 12/29/2017 11:34:44 AM Number of Addenda: 0 Note Initiated On: 12/29/2017 11:00 AM PROVATION 12/29/2017 11:0 0 AM EST Bin Bowman MD GENERAL SURGICAL ORD ERABLES PROVATION documented in this encounter Visit Diagnoses Diagnosis Bloating Flatulence, eructation, and gas pain Gastroesophageal reflux disease, esophagitis presence not specified Dysphagia, unspecified type Diarrhea, unspecified type documented in this encounter Administered Medications Inactive Administered Medications - up to 3 most recent administrations Medication Order MAR Action Action Date Dose Rate Site lactated Ringers infusion 100 mL/hr, Intravenous, CONTINUOUS, Starting on Fri12/29/17 at 0945, Until Fri12/29/17 at 1232, Endoscopy (Day of Procedure) New Bag 12/29/2017 11:11 AM EST New Bag 12/29/2017 9:45 AM EST 100 mL/hr 100 mL/hr documented in this encounter Active and Recently Administered Medications Times are shown in EST. Continuous Medication Order 12/27/2017 12/28/2017 12/29/2017 lactated Ringers infusion (CANCELED) 100 mL/hr, Intravenous, CONTINUOUS, Starting on Fri12/29/17 at 0945, Until Fri12/29/17 at 1232, Endoscopy (Day of Procedure) 0945 (New Bag - Prov ider: Nasrin Brown RN)1111 (New Bag - Provider: Annabella Lorenzo CRNA) documented in this encounter Care Teams Warehouse Specialist Relationship Specialty Start Date End Date Bin Bowman MD [address] [place] [id number] PCP - General General Internal Medicine 04/21/1707/11 documented as of this encounter
--- OUTSIDE RECORDS SUMMARY | 2024-06-04 20:48 | XMS_ITS | Encounter Summary ---
Author Organization [facility] [address] Care Team Providers Care Commercial Estimator Name Role Phone Bin Bowman MD Primary Care Provider [phone] Reason for Visit * Reason Onset Date Comments Prior Authorization 02/03/2018 Encounter Details Date Type Department Care Team (Late st Contact Info) Description 02/03/2018 Telephone [place] [address] Aydin Lugo RNwhipped topping supervisor Social History Tobacco Use Types Packs/Day Years [...] encounter Miscellaneous Notes * Telephone Encounter - Gabriela Blanco CMA - 02/04/2018 7:39 AM EDT Approved for the Nexium 40 mg Tracking number: [id number] Start: until 02/02/2019 * Telephone Encounter - Aydin Lugo RN - 02/03/2018 9:25 AM EDT Prior Authorization Medication: esomeprazole Dosage: 40 mg Frequency & Route: PO BID Insurance & Phone #: [place] ID #: [id number] Trialed (dosage, frequency): pantoprazole 40 mg BID, famotidine 20 mg BID, lansoprazole, esomeprazole 40 mg daily 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, nutcracker esophagus Notes: Submitted via covermymeds 02/02 pending documented in this encounter Plan of Treatment Upcoming Encounters Date Type Department Care Team (Latest Contact Info) Description 06/07/2024 2:00 PM EDT Office [place] [phone] Joan Castro MD [facility] [place] [address] 06/11/2024 1:03 PM EDT Hospital Encounter [place] [phone] Rachel Carrasco MD [facility] [place] [address] 06/11/2024 1:03 PM EDT - 06/11/2024 1:58 PM EDT Surgery [place] [phone] Rachel Carrasco MD [facility] [place] [address] CYSTO, REMOVAL OF STENT, FOREIGN BODY OR CALCULUS, SIMPLE (WRVU 2.81) 06/23/2024 10:00 AM EDT Office Visit Cardiology at [address] [id number] Mo Horne MD [facility] [place] [address] Scheduled Procedures Name Priority Associated Diagnoses Date/Ti me CYSTO, REMOVAL OF STENT, FOR EIGN BODY OR CALCULUS, SIMPLE (WRVU 2.81) NEPHROLITHIASIS 06/11/2024 1:03 PM EDT documented as of this encounter Visit Diagnoses Not on filedocumented in this encounter Care Teams Commercial Estimator Relationship Specialty Start Date End Date Bin Bowman MD [address] [place] [address] PCP - General General Internal Medicine 04/21/1707/11 documented as of this encounter
--- OUTSIDE RECORDS SUMMARY | 2024-06-04 20:48 | XMS_ITS | Encounter Summary ---
Author Organization [facility] [place] [address] Care Team Providers Care Animal Husbandry Manager Name Role Phone iBn Bowman MD Primary Care Provider Encounter Details Date Type Department Care Team (Late st Contact Info) Description 03/06/2018 Orders Only [place] [phone] Breonna Ambrocio, TOP PRECIPITATOR OPERATOR HELPER [address] [place] [address] Social History Tobacco Use Types Packs/Day Years [...] 2:00 PM EDT Office Visit [place] [phone] Joan Castro MD [facility] [place] [address] 06/11/2024 1:03 PM EDT Hospital Encounter [place] [address] Rachel Carrasco MD [facility] [address] 06/11/2024 1:03 PM EDT - 06/11/2024 1:58 PM EDT Surgery [place] [phone] Rachel Carrasco MD [facility] [place] [address] CYSTO, REMOVAL OF STENT, FOREIGN BODY OR CALCULUS, SIMPLE (WRVU 2.81) 06/23/2024 10:00 AM EDT Office Visit Cardiology at [address] [address] Mo Horne MD [facility] [place] [address] Scheduled Procedures Name Priority Associated Diagnoses Date/Ti me CYSTO, REMOVAL OF STENT, FOR EIGN BODY OR CALCULUS, SIMPLE (WRVU 2.81) NEPHROLITHIASIS 06/11/2024 1:03 PM EDT documented as of this encounter Visit Diagnoses Not on filedocumented in this encounter Care Teams Animal Husbandry Manager Relationship Specialty Start Date End Date Bin Bowman MD [address] [place] [id number] PCP - General General Internal Medicine 04/21/1707/11 documented as of this encounter
--- OUTSIDE RECORDS SUMMARY | 2024-06-04 20:48 | XMS_ITS | Encounter Summary ---
Author Organization [facility] Address [facility] [place] [address] Care Team Providers Care General Engineering Teacher Name Role Phone Bin Bowman MD Primary Care Provider [phone] Encounter Details Date Type Department Care Team (Latest Contact Info) Description 02/16/2018 - 02/16/2018 11:59 PM EDT Hospital Encounter [place] [address] Colt Hewitt MD [facility] [place] [address] Discharge Disposition: Home Social History Tobacco Use [...] 3 times daily as needed for Anxiety. MARIJUANA ORAL Take by mouth. 05/15/2020 LORazepam (ATIVAN) 1 mg Tablet Take 1 tablet by mouth every 6 hours as needed for Anxiety. 30 tablet 1 01/20/2018 03/06/2018 ondansetron (ZOFRAN-ODT) 4 mg Tablet, Rapid Dissolve Take 1 tablet by mouth every 8 hours as needed for Nausea. 20 tablet 11 01/20/2018 07/29/2019 esomeprazole (NEXIUM) 40 mg Capsule, Delayed Release(E.C.) Take 1 capsule by mouth 2 times daily. 60 capsule 11 01/20/2018 08/03/2018 ondansetron (ZOFRAN-ODT) 4 mg Tablet, Rapid Dissolve Take 1 tablet by mouth every 8 hours as needed for Nausea. 20 tablet 01/16/2018 07/21/2018 atorvastatin (LIPITOR) 80 mg Tablet Take 1 [...] day. 07/20/2018 documented as of this encounter Plan of Treatment Upcoming Encounters Date Type Department Care Team (Latest Contact Info) Description 06/07/2024 2:00 PM EDT Office Visit [place] [phone] Joan Castro MD [facility] [place] [address] 06/11/2024 1:03 PM EDT Hospital Encounter [place] [phone] Rachel Carrasco MD [facility] [place] [address] 06/11/2024 1:03 PM EDT - 06/11/2024 1:58 PM EDT Surgery Main Operating [facility] [place] [address] Rachel Carrasco MD [facility] [place] [address] CYSTO, REMOVAL OF STENT, FOREIGN BODY OR CALCULUS, SIMPLE (WRVU 2.81) 06/23/2024 10:00 AM EDT Office Visit Cardiology at [address] [place] [phone] Mo Horne MD [facility] [place] [address] Scheduled Procedures Name Priority Associated Diagnoses Date/Ti me CYSTO, REMOVAL OF STENT, FOR EIGN BODY OR CALCULUS, SIMPLE (WRVU 2.81) NEPHROLITHIASIS 06/11/2024 1:03 PM EDT documented as of this encounter Procedures Procedure Name Priority Date/Time Associated Diagnosis Comments FILM LIBRARY STORAGE ONLY NUCLEAR MEDICINE Routine 02/16/2018 12:00 AM EDT documented in this encounter Results * Film Library- Storage Only nuclear medicine (02/16/2018 12:00 AM EDT) Narrative [facility] - 02/23/2018 2:58 PM EDT This exam is for storage only and is auto-finalizing. Colt Hewitt MD IMG FILM LIBRARY OR DERABLES [place], [place] documented in this encounter Visit Diagnoses Not on filedocumented in this encounter Care Teams General Engineering Teacher Relationship Specialty Start Date End Date Bin Bowman MD [address] [place] [phone] PCP - General General Internal Medicine 04/21/1707/11 documented as of this encounter
--- OUTSIDE RECORDS SUMMARY | 2024-06-04 20:48 | XMS_ITS | Encounter Summary ---
Author Organization [facility] [place] [address] Care Team Providers Care Sandwich Artist Name Role Phone Bin Bowman MD Primary Care Provider Reason for Visit * Reason Comments Medication Refill Encounter Details Date Type Department Care Team (Late st Contact Info) Description 12/31/2017 Refill [place] [phone] Hawk Coker DO [facility] DR HEMATOLOGY/[place] [address] Social History Tobacco Use Types Packs/Day Years [...] 2:00 PM EDT Office Visit [place] [phone] oJan Castro MD [facility] [place] [address] 06/11/2024 1:03 PM EDT Hospital Encounter [place] [address] Rachel Carrasco MD [facility] [place] [address] 06/11/2024 1:03 PM EDT - 06/11/2024 1:58 PM EDT Surgery [place] [phone] Rachel Carrasco MD [facility] [place] [address] CYSTO, REMOVAL OF STENT, FOREIGN BODY OR CALCULUS, SIMPLE (WRVU 2.81) 06/23/2024 10:00 AM EDT Office Visit Cardiology at [address] [place] [address] Mo Horne MD [facility] [place] [address] Scheduled Procedures Name Priority Associated Diagnoses Date/Ti me CYSTO, REMOVAL OF STENT, FOR EIGN BODY OR CALCULUS, SIMPLE (WRVU 2.81) NEPHROLITHIASIS 06/11/2024 1:03 PM EDT documented as of this encounter Visit Diagnoses Not on filedocumented in this encounter Care Teams Sandwich Artist Relationship Specialty Start Date End Date Bin Bowman MD [address] [place] [phone] PCP - General General Internal Medicine 04/21/1707/11 documented as of this encounter
--- OUTSIDE RECORDS SUMMARY | 2024-06-04 20:48 | XMS_ITS | Encounter Summary ---
Author Organization [facility] Address [facility] [place] [address] Care Team Providers Care Electrical Solderer Name Role Phone Bin Bowman MD Primary Care Provider [phone] Encounter Details Date Type Department Care Team (Latest Contact Info) Description 12/29/2017 8:49 AM EST - 12/29/2017 12:32 PM EST Hospital Encounter [place] [address] Yusuf Tucker MD [facility] [place] [address] Discharge Disposition: Home Social History Tobacco Use [...] this encounter Discharge Instructions * Discharge Instructions* JeYudi toledo RN - 12/29/2017 11:38 AM EST Images [...] Other Instructions Be sure to carry your side trimmer within 3 feet at all times . [...] better as expected. Friday-Friday Same Day Endo [phone] Otherwise contact [phone] and ask to speak to the human resources associate long chain dyeing machine operator Denise Wolf RN [phone] if any problems with side trimmer Follow-up care is a garcia part of [...] the day after the test, use an [id number]-[id number] spray to numb your throat. Follow-up care [...] more? Visit our health information library at [email or web address]. You can also view health information on [employer], your personal patient account. Log in or sign uptoday. Enter J454 in the search box to learn more about Upper GI Endoscopy: What to Expect at Home. Current as of: March 21, 2017 Content Version: 11.4 ?? [id number] [employer]. Care instructions adapted under license by [facility]. If you have questions about a medical condition or this instruction, always ask your healthcare professional. [employer] disclaims any warranty or liability for your [...] by: Yusuf Tucker MD Department of Gastroenterology [facility] 12/29/2017 documented in this encounter Plan of Treatment Upcoming Encounters Date Type Department Care Team (Latest Contact Info) Description 06/07/2024 2:00 PM EDT Office [place] [address] Joan Castro MD [facility] [place] [address] 06/11/2024 1:03 PM EDT Hospital Encounter [place] [phone] Rachel Carrasco MD [facility] [place] [address] 06/11/2024 1:03 PM EDT - 06/11/2024 1:58 PM EDT Surgery [place] [phone] Rachel Carrasco MD [facility] [place] [address] CYSTO, REMOVAL OF STENT, FOREIGN BODY OR CALCULUS, SIMPLE (WRVU 2.81) 06/23/2024 10:00 AM EDT Office Visit Cardiology at [address] [address] Mo Horne MD [facility] [place] [address] Scheduled Procedures Name Priority Associated Diagnoses Date/Ti [...] (12/29/2017 11:27 AM EST) FINAL DIAGNOSIS (AP) [id number] ? Location: 4T; EA; A The signing pathologist has (i) examined [...] Durbin MD Verified: ??01/01/2018 ?Pathologist Performed at: ??-[facility] Dept. of Pathology, [place], [place] CLINICAL INFORMATION Specimen Submitted: A - [...] sing: (T1) ??ejr 01/01/2018 2:42 PM EST [facility] 12/29/2017 11:2 7 AM EST Yusuf Tucker MD PATHOLOGY/CYTOLOGY [place] Performing Organization Address [facility] Co de Phone Number [facility] [place] [address] * Specimen to Pathology (12/29/2017 11:27 AM EST) AP Specimen 12/29/2017 11:2 7 AM EST 12/29/2017 1:17 PM EST Narrative [facility] - 12/29/2017 1:17 PM EST Specimen requisition ordered. ??Separate Pathology report to follow Resulting Agency Comment Spec In Lab Yusuf Tucker MD PATHOLOGY/CYTOLOGY [place] Performing Organization Address [facility] Co de Phone Number [facility] [place] [address] * Specimen to Pathology (12/29/2017 11:27 AM EST) AP Specimen 12/29/2017 11:2 7 AM EST 12/29/2017 1:17 PM EST Narrative [facility] - 12/29/2017 1:17 PM EST Specimen requisition ordered. ??Separate Pathology report to follow Resulting Agency Comment Spec In Lab Yusuf Tucker MD PATHOLOGY/CYTOLOGY [place] Performing Organization Address [facility]/[place] [address] * Specimen to Pathology (12/29/2017 11:27 AM EST) AP Specimen 12/29/2017 11:2 7 AM EST 12/29/2017 1:17 PM EST Narrative [facility] - 12/29/2017 1:17 PM EST Specimen requisition ordered. ??Separate Pathology report to follow Resulting Agency Comment Spec In Lab Yusuf Tucker MD PATHOLOGY/CYTOLOGY [place] Performing Organization Address [facility] [place] [address] * Specimen to Pathology (12/29/2017 11:27 AM EST) AP Specimen 12/29/2017 11:2 7 AM EST 12/29/2017 1:17 PM EST Narrative [facility] - 12/29/2017 1:17 PM EST Specimen requisition ordered. ??Separate Pathology report to follow Resulting Agency Comment Spec In Lab Yusuf Tucker MD PATHOLOGY/CYTOLOGY [place] Performing Organization Address [facility] [place] [address] * UPPER GI ENDOSCOPY (12/29/2017 11:00 AM EST) UPPER GI ENDOSCOPY [facility] Endoscopy Procedure Date: 12/29/2017 11:00 AM ? Patient Name: Rolo Aguilar ? Date of : 1970 ? Age: 47 ? Order #: [id number] ? Instrument Name: [id number] ? Procedure: ? Upper GI endoscopy Indications: ? Heartburn, bloating Providers: ? Yusuf Tucker MD, Funmi Andre ? Miko Gibbons, Ethylbenzene Cracking Supervisor Referring : ?Bin Bowman MD Medicines: ? [...] PROVATION documented in this encounter Visit Diagnoses Not [...] CRNA) documented in this encounter Care Teams Electrical Solderer Relationship Specialty Start Date End Date Bin Bowman MD [address] [place] [phone] PCP - General General Internal Medicine 04/21/1707/11 documented as of this encounter
--- OUTSIDE RECORDS SUMMARY | 2024-06-04 20:48 | XMS_ITS | Encounter Summary ---
Author Organization [facility] [place] [address] Care Team Providers Care Boiler Control Room Operator Name Role Phone Bin Bowman MD Primary Care Provider Encounter Details Date Type Department Care Team (Late st Contact Info) Description 12/04/2017 Telephone [place] [address] Dimple Wolf, RN Social History Tobacco Use [...] Miscellaneous Notes * Telephone Encounter - Dimple Wolf, RN - 12/04/2017 10:04 AM EST Leslie calls from the [facility] pharmacy in [place], [place] stating, patient asked me to call the office. He was seen in the ED and prescribed Esomeprazole, which is not covered by his [place] Medicaid. Returned call to above caller to make her aware that the patient notified us this morning and a message was sent to Breonna Ambrocio APRN. Caller states that if Breonna agrees with the change she will need to send a prescription and a PriorAuthorization will be needed. Forwarding to Breonna Ambrocio APRN documented in this encounter Plan of Treatment Upcoming Encounters Date Type Department Care Team (Latest Contact Info) Description 06/07/2024 2:00 PM EDT Office Visit [place] [phone] Joan Castro MD [facility] [address] 06/11/2024 1:03 PM EDT Hospital Encounter [place] [address] Rachel Carrasco MD [facility] [place] [address] 06/11/2024 1:03 PM EDT - 06/11/2024 1:58 PM EDT Surgery [place] [phone] Rachel Carrasco MD [facility] [place] [address] CYSTO, REMOVAL OF STENT, FOREIGN BODY OR CALCULUS, SIMPLE (WRVU 2.81) 06/23/2024 10:00 AM EDT Office Visit Cardiology at [address] [place] [phone] Mo Horne MD [facility] [place] [address] Scheduled Procedures Name Priority Associated Diagnoses Date/Ti me CYSTO, REMOVAL OF STENT, FOR EIGN BODY OR CALCULUS, SIMPLE (WRVU 2.81) NEPHROLITHIASIS 06/11/2024 1:03 PM EDT documented as of this encounter Visit Diagnoses Not on filedocumented in this encounter Care Teams Boiler Control Room Operator Relationship Specialty Start Date End Date Bin Bowman MD [address] [place] [phone] PCP - General General Internal Medicine 04/21/1707/11 documented as of this encounter
--- OUTSIDE RECORDS SUMMARY | 2024-06-04 20:48 | XMS_ITS | Encounter Summary ---
Author Organization [facility] [place] [address] Care Team Providers Care Ironworker Foreman Name Role Phone Severo Bowman MD Primary Care Provider Reason for Referral * Consultation (Routine) - Specialty Diagnoses / Procedures Referred By Zeyad mishra Referred To Contact Cardiac Rehabilitation Diagnoses ST elevation myocardial infarction (STEMI), unspecified artery Ky Amato MD [facility] [place] [address] Cardiac Rehab, [facility] [address] [place] [address] Referral ID Status Reason Start Date Expiration Date V isits Requested Visits Authorized [id number] Consult, Test & Treat 07/16/2017 01/12/2018 36 36 Reason for Visit * Auth/Cert Specialty Diagnoses / Procedures Referred By Zeyad mishra Referred To Contact Diagnoses STEMI (ST elevation myocardial infarction) STEMI STEMI Procedures CARDIAC CATHETERIZATION Referral ID Status Reason Start Date Expiration Date Visits Re quested Visits Authorized [id number] 1 1 Encounter Details Date Type Department Care Team (Latest Contact Info) Description 07/13/2017 12:24 PM EDT - 07/16/2017 11:51 AM EDT Hospital Encounter Intermediate [place] [address] Ky Amato MD [facility] [place] [address] Neftali White MD [facility] [place] [address] ST elevation myocardial infarction (STEMI), unspecified artery Discharge Disposition: Home Social History Tobacco Use [...] Sign Reading Time Taken Comments Blood Pressure 102/70 07/16/2017 11:11 AM EDT Pulse 69 07/16/2017 11:11 AM EDT Temperature 37.1 ??C (98.8 ??F) 07/16/2017 1 1:11 AM EDT Respiratory Rate 18 07/16/2017 11:1 1 AM EDT Oxygen Saturation 100% 07/16/2017 11: 11 AM EDT Inhaled Oxygen Concentration - - Weight 170.8 kg (376 lb 8.7 oz) 07/16/2017 6:48 AM EDT Height 167.6 cm (5' 6) 07/14/2017 7:00 AM EDT Body Mass Index 60.78 07/14/2017 7:00 AM EDT documented in this encounter Discharge Summaries * Ky Amato MD - 07/16/2017 7:57 AM EDT Discharge Summary Patient Name: Rolo Aguilar Patient Age: 46 y.o. Language: Belgian Race: White Ethnicity: Not nor Admit date: 07/13/2017 Discharge date and time: 07/16/2017 Attending Physician: Ky Amato MD Discharge Physician: Hawk Coker DO (Resident) ID: Mr. Aguilar is a 46yo w/ pMHx Of HTN, HLD, GERD, morbid obesity, depression, bipolar, who presents as transfer from [facility] for chest pain and inferior STEMI. Follow-up Recommendations for Providers: - Would recommend checking BMP in 1-2 weeks as patient has been started on YANDEL inhibitor - Patient was restarted on his Ziprasidone as an inpatient, would recommend a repeat EKG to assess QTc in next few weeks - Please follow-up patient's blood pressure and titrate medications as appropriate - Cardiac rehab in [facility] Discharge Diagnoses (Hospital Problems) and Secondary Diagnoses (Chronic Problems): Active Hospital Problems Diagnosis ??? STEMI (ST elevation myocardial infarction) Resolved Hospital Problems Diagnosis Date Resolved No resolved problems to display. There are no active non-hospital problems to display for this patient. Procedures: Operations: Procedure(s) with comments: CARDIAC CATHETERIZATION - Procedure: Coronary Angiography Dominance: Right ? Left Main The left main was normal. ? Left Anterior Descending The left anterior descending (LAD) was normal. ? Left Circumflex There was an 85% long segmental stenosis of the proximal segment of the first obtuse marginal branch (OM1) of the left circumflex (LCX). There was evidence of thrombus in this lesion. The OM1 was large. ? Right Coronary Artery The right coronary artery (RCA) was normal. ? Ramus The ramus was normal. Conclusions: * One vessel coronary artery disease (LCX) * Elevated left ventricular end diastolic pressure * Successful stent insertion of the proximal OM1 lesion * Recommend continuing clopidogrel 75 mg PO daily for 12 months (see DAPT Recommendations above for more information.) History of Presentation (per 07/13/2017 Admission H&P): Mr. Aguilar is a 46yo w/ pMHx Of HTN, HLD, GERD, morbid obesity, depression, bipolar, who presents as transfer from [facility] for chest pain and inferior STEMI. Patient woke up at 6am this morning with a headache from back of head to the front and pressure on chest. Pressure was localized to the LLSB, was constant, but did not radiate anywhere. Patient also felt some pain in jaw. Jonatan cerda thought it was indigestion (felt similar to it), and proceeded to drink with a cup of tea. 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 He also received 1L of NS for BP in the 90/50s. It took an 1 to 1.5 hr to get to [facility]. ?? 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 ?? Patient denies recent illnesses, diarrhea, constipation, coughs, sick contacts Hospital Course: Rolo Aguilar was admitted to the Medicine Service on 07/13/2017 in stable condition. 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 Prior to discharge he had aCXR showing mild pulmonary edema. This was from acute diastolic heart failure. His cath showed one vessel coronary artery disease of the LCX, he received EMMY to his proximal OM1 lesion. On transfer to the [facility], the patient was chest pain free and otherwise asymptomatic. Baseline labs were checked and within normal limits, including renal function. He was monitored on telemetry which showed normalsinus rhythm. We continued to cycle EKGs and cardiac enzymes; his troponin peaked and trended down at which time we stopped monitoring this. The patient was started on ASA, Plavix, metoprolol, YANDEL-I and a statin (atorvastatin 80MG) as an inpatient. His home atenolol was stopped. A TTE was performedthat showed a preserved LVEF of 60%. The patient's Ziprasidone was initially held in the setting ofacute NM. This was discussed at length with the patient who ultimately decided that he would like to continue this medication. The risks of continuing this medication (sudden cardiac , arrhythmia, etc.) were discussed in great detail and the patient displayed appropriate understanding of this conversation. He reported that he has tried to come off these medications in the past and has had significant struggles with his mental health. Ultimately he felt that his mood was stable on his current regimen and he wanted to continue this. We were accepting of this decision as the risk of deterioration of his mental health likely outweighed the benefit of discontinuing this medication. His QTc was monitored daily and found to be in the normal range. In addition, the patient was evaluated by the cardiac rehab team. The patient tolerated supervised ambulation in the hallway and up/downstairs with no anginal symptoms. It was recommended that the patient return home and participate in a supervised cardiac rehab program. Important Studies and Lab Data: DISCHARGE BASIC LABS Recent Labs 07/16/1751507/15/1743607/14/17 0320 WBC 8.6 9.5 11.5* HGB 11.6* 12.3* 13.5* HCT 34.5* 36.5* 38.8* PLATELET 128* 145 197 Recent Labs 07/16/1751507/15/1743607/14/17 0320 NA 139 137 139 K 4.0 4.1 4.3 CL 101 100 103 CO2 26 25 22 BUN 11 10 11 CREATININE 1.05 0.88 0.79* MAGNESIUM 0.82 0.96 0.70 Recent Labs 07/13/17 1500 BILITOT 0.6 AST 193* ALT 35 ALKPHOS 44 Recent Labs 07/13/17 1500 INR 1.2* PTT 138* Pertinent radiology/diagnostic studies: CXR (07/13): FINDINGS: There is no pneumothorax or pleural effusion. Lungs are moderately well inflated. There is enlargement of the central pulmonary vascularity with vascular indistinctness and minimal peribronchial cuffing. No interlobular septal thickening. Heart size and mediastinum are within normal limits for radiographic projection. No displaced rib fracture or focal bone lesion. ?? IMPRESSION Mild interstitial pulmonary edema. TTE (07/15) SUMMARY: ?? 1. The left ventricular chamber size is normal. There is normal global left ventricular systolic function. The quantitative left ventricular ejection fraction by biplane Malik's method is 60%. There are left ventricular segmental wall motion abnormalities present at [facility] inferolateral wall, as coded in the diagram below. 2. Right ventricular chamber size, wall thickness, and systolic function are within normal limits. 3. See remainder of report for additional findings. 4. No prior echo available for comparison. Discharge Conditions/Prognosis: Upon discharge the pt is hemodynamically stable, fully ambulatory without requiring supplemental oxygen, holding down food/drink, afebrile and pain free Discharge to: home without services Discharge Medications: Your Medications New Medications Dose Details aspirin 81 mg Tbec Take 1 tablet by mouth daily. 81 mg Quantity: 30 tablet Refills: 3 atorvastatin 80 mg Tab Commonly known as: LIPITOR Take 1 tablet by mouth every evening. 80 mg Quantity: 90 tablet Refills: 3 clopidogrel 75 mg Tab Commonly known as: PLAVIX Take 1 tablet by mouth daily. 75 mg Quantity: 90 tablet Refills: 3 lisinopril 2.5 mg Tab Commonly known as: PRINIVIL;ZESTRIL Take 1 tablet by mouth daily. 2.5 mg Quantity: 90 tablet Refills: 3 meTOPROLOL succinate 50 mg Tablet sr Commonly known as: TOPROL-XL Take 1 tablet by mouth daily. 50 mg Quantity: 30 tablet Refills: 12 Continued medications with new dosing Dose Details lamoTRIgine 200 mg Tab Commonly known as: LaMICtal Take 1 tablet by mouth daily. What changed: - medication strength - how much to take 200 mg Quantity: 30 tablet Refills: 3 Continued medications, unchanged Dose Details clonazePAM 1 mg Tab Commonly known as: KlonoPIN Take 1 mg by mouth 2 times daily as needed for Anxiety. 1 mg Refills: 0 NAC ORAL Take by mouth. Refills: 0 pantoprazole 40 mg Tbec Commonly known as: PROTONIX Take 1 tablet by mouth daily. 40 mg Quantity: 90 tablet Refills: 3 ziprasidone 20 mg Cap Commonly known as: GEODON Take 20 mg by mouth nightly. 20 mg Refills: 0 STOPPED Medications atenolol 25 mg Tab Commonly known as: TENORMIN famotidine 20 mg Tab Commonly known as: PEPCID lansoprazole 30 mg Cpdr Commonly known as: PREVACID UNABLE TO FIND Updated Allergies/ADRs: Allergies Allergen Reactions ??? Gabapentin ??? Wellbutrin [Bupropion Hcl] ??? Zoloft [Sertraline] Instructions Given to Patient at Discharge: Patient Instructions Patient Instructions on Discharge to Home Why you were hospitalized: You had a heart attack, which was caused by a blockage in one of your heart arteries. This was fixed with a stent that was placed during a cardiac catheretization. Because you had this procedure, youshouldn't lift anything greater than 10 lbs for the next week and nothing greater than 20 lbs for 2 weeks. After that time you may go back to regular activity and work. Call your doctor if your Right groin pain gets worse, or you develop swelling or redness in that area. Also, call your doctor if you develop sudden chest pain or shortness of breath, especially chestpain that does not go away with nitroglycerin. It is important that you take your aspirin 81mg daily forever and clopidogrel 75mg daily for at least 1 year. Do not miss any doses of these medications! New Medications: Aspirin: this is a platelet inhibitor that will help prevent clot build up in your arteries, as well as in the stent that was placed. Continue taking 81mg daily indefinitely. Clopidogrel (plavix): this is a second platelet inhibitor that will help prevent clot build up in the stent that was placed. It is very important that you take this medication every day at least forone year to help keep your stent open. Follow up with your doctor before stopping this medication. Atorvastatin (lipitor): this is a cholesterol-lowering medication that helps prevent build up of plaque in your arteries. Take this every evening. Metoprolol (toprol): this is a beta helen, that helps protect your heart. Take this every day. Lisinopril: this is an YADNEL inhibitor that also helps protect your heart, as well as help control your blood pressure. Take this every day. Medication Changes: Stop taking Atenolol When to call your doctor: - Chest pain, worsening shortness of breath, fatigue with usual exertion, or new rest/night time symptoms. - Weigh yourself daily and record; if you note an increase of more than 2-3 pounds in 2 days, or 5 pounds over a week, contact your health care provider. - If you become short of breath, cannot lie down to sleep, or have swelling in your legs/ankles or abdomen, contact your health care provider. - Call if you have reduced urination during the day or increased urination at night. - Call for signs of increased wound drainage, redness, swelling, or increased pain at the site of your cardiac cath. - Call if you develop a temp >100.5 If you have non-emergent questions between now and the time of your follow up appointments: During 8am-5pm Friday through Friday call [phone] to speak with a nurse in the cardiology clinic All other times call [phone] and ask to speak to the international sales representative music education adjunct professor. Activity level: - No heavy lifting (more than five pounds) for 48 hours; no more than 10 pounds for one week. - You may return to work in 1 week. Use common sense. Don't exhaust yourself. - No hunting, skiing, jogging, snow shoveling, snowmobiling, lawn mowing, swimming, golf or tennis until after your return appointment with your family doctor. - Do not ride motorcycles, tractors or horses until cleared by your doctor. Diet: - Heart healthy: low salt, low fat, low concentrated sweets. Remember to avoid added salt, canned foods, processed foods (ie hot dogs, sausage, cold meats), and foods naturally high in salt, such as potato chips or pizza. Driving: - Per your routine after [address] if you feel dizzy, light headed, or are taking narcotic medications (ie/ Oxycodone, Morphine, Dilaudid, etc). Shower/Bath: - You may shower 24 hours after cardiac catheterization. - You may not sit in water for 5 days (tub bath, hot tub or pool). Wound Care: - Cath site dressing may be removed in 24 hours. Site may be washed with soap/water. A dressing does not need to be reapplied unless irritation occurs with underclothes. If irritation occurs, apply clean band-aid daily. Exercise: - Exercise 5-7 days per week as tolerated with gradual increase to 30 minutes per day. Smoking cessation: - If you are currently a smoker, you are strongly urged to stop smoking! Smoking increases the severity and incidence of heart disease, and is a risk factor for cancer and emphysema. Your health careprovider can provide specific measures to assist you, including nicotine supplements, anti-anxiety meds, and support groups in your community. Home oxygen therapy: n/a Arrangements for VNA/home care: n/a Follow up Appointments: Future Appointments Date Time Provider Department Center 09/10/2017 3:00 PM [facility] 09/19/2017 9:30 AM Breonna Ambrocio APRN [facility] Cardiology Follow-up: Dr. Montes -- August 01, 1:30PM PCP Follow-up: JONATAN Hay -- July 28, 11:00AM -- [phone] Your Inpatient Doctor(s) at [facility]: Ky Amato MD - Attending physician Hawk Coker DO - Resident physician Maryuri Sanchez MD - Casino Worker physician Your Primary Care Provider: Severo Bowman MD [address] / [place] [address] For questions regarding issues relating to your hospitalization on the Hospital Medicine Service, please contact your inpatient physician through the [facility] Home Health Billing Specialist [phone]. Issues after hours and on weekends will be handled by the Hospitalist staff on-call. General Instructions None Future Appointments and Orders Future Appointments Provider Department Dept Phone 09/10/2017 3:00 PM [facility] [place] [phone] 09/19/2017 9:30 AM Breonna Ambrocio APRN [facility] [place] [phone] Future Orders Complete By Expires Referral to Cardiac Rehab [[id number] Custom] As directed Process Instructions: If no progress note charted, please enter Clinical details in comments. Scheduling Instructions: Questions: My question or request is: STEMI. Cardiac rehab at [facility] Provider Contact Information: Severo Bowman MD [address] / [place] [address] Discharge References/Attachments: Discharge References/Attachments None documented in this encounter Discharge Instructions * Patient Instructions* Hawk Coker DO - 07/15/2017 1:15 PM EDT Patient Instructions on Discharge to Home Why you were hospitalized: You had a heart attack, which was caused by a blockage in one of your heart arteries. This was fixed with a stent that was placed during a cardiac catheretization. Because you had this procedure, youshouldn't lift anything greater than 10 lbs for the next week and nothing greater than 20 lbs for 2 weeks. After that time you may go back to regular activity and work. Call your doctor if your Right groin pain gets worse, or you develop swelling or redness in that area. Also, call your doctor if you develop sudden chest pain or shortness of breath, especially chestpain that does not go away with nitroglycerin. It is important that you take your aspirin 81mg daily forever and clopidogrel 75mg daily for at least 1 year. Do not miss any doses of these medications! New Medications: Aspirin: this is a platelet inhibitor that will help prevent clot build up in your arteries, as well as in the stent that was placed. Continue taking 81mg daily indefinitely. Clopidogrel (plavix): this is a second platelet inhibitor that will help prevent clot build up in the stent that was placed. It is very important that you take this medication every day at least forone year to help keep your stent open. Follow up with your doctor before stopping this medication. Atorvastatin (lipitor): this is a cholesterol-lowering medication that helps prevent build up of plaque in your arteries. Take this every evening. Metoprolol (toprol): this is a beta helen, that helps protect your heart. Take this every day. Lisinopril: this is an YANDEL inhibitor that also helps protect your heart, as well as help control your blood pressure. Take this every day. Medication Changes: Stop taking Atenolol When to call your doctor: - Chest pain, worsening shortness of breath, fatigue with usual exertion, or new rest/night time symptoms. - Weigh yourself daily and record; if you note an increase of more than 2-3 pounds in 2 days, or 5 pounds over a week, contact your health care provider. - If you become short of breath, cannot lie down to sleep, or have swelling in your legs/ankles or abdomen, contact your health care provider. - Call if you have reduced urination during the day or increased urination at night. - Call for signs of increased wound drainage, redness, swelling, or increased pain at the site of your cardiac cath. - Call if you develop a temp >100.5 If you have non-emergent questions between now and the time of your follow up appointments: During 8am-5pm Friday through Friday call [phone] to speak with a nurse in the cardiology clinic All other times call [phone] and ask to speak to the international sales representative music education adjunct professor. Activity level: - No heavy lifting (more than five pounds) for 48 hours; no more than 10 pounds for one week. - You may return to work in 1 week. Use common sense. Don't exhaust yourself. - No hunting, skiing, jogging, snow shoveling, snowmobiling, lawn mowing, swimming, golf or tennis until after your return appointment with your family doctor. - Do not ride motorcycles, tractors or horses until cleared by your doctor. Diet: - Heart healthy: low salt, low fat, low concentrated sweets. Remember to avoid added salt, canned foods, processed foods (ie hot dogs, sausage, cold meats), and foods naturally high in salt, such as potato chips or pizza. Driving: - Per your routine after [address] if you feel dizzy, light headed, or are taking narcotic medications (ie/ Oxycodone, Morphine, Dilaudid, etc). Shower/Bath: - You may shower 24 hours after cardiac catheterization. - You may not sit in water for 5 days (tub bath, hot tub or pool). Wound Care: - Cath site dressing may be removed in 24 hours. Site may be washed with soap/water. A dressing does not need to be reapplied unless irritation occurs with underclothes. If irritation occurs, apply clean band-aid daily. Exercise: - Exercise 5-7 days per week as tolerated with gradual increase to 30 minutes per day. Smoking cessation: - If you are currently a smoker, you are strongly urged to stop smoking! Smoking increases the severity and incidence of heart disease, and is a risk factor for cancer and emphysema. Your health careprovider can provide specific measures to assist you, including nicotine supplements, anti-anxiety meds, and support groups in your community. Home oxygen therapy: n/a Arrangements for VNA/home care: n/a Follow up Appointments: Future Appointments Date Time Provider Department Center 09/10/2017 3:00 PM [facility] 09/19/2017 9:30 AM Breonna Ambrocio APRN [facility] Cardiology Follow-up: Dr. Montes -- August 01, 1:30PM PCP Follow-up: JONATAN Hay -- July 28, 11:00AM -- [phone] Your Inpatient Doctor(s) at [facility]: Ky Amato MD - Attending physician Hawk Coker DO - Resident physician Maryuri Sanchez MD - Casino Worker physician Your Primary Care Provider: Severo Bowman MD [address] / [place] [address] For questions regarding issues relating to your hospitalization on the Hospital Medicine Service, please contact your inpatient physician through the [facility] Home Health Billing Specialist [phone]. Issues after hours and on weekends will be handled by the Hospitalist staff on-call. documented in this encounter Medications at Time of Discharge Medication Sig Dispensed Refills Start Date End Date aspirin 81 mg Tablet, Delayed Release (E.C.) Take 1 tablet by mouth daily. 30 tablet 3 07/16/2017 clonazePAM (KLONOPIN) 1 mg Tablet Take 1 mg by mouth 3 times daily as needed for Anxiety. atorvastatin (LIPITOR) 80 mg Tablet Take 1 [...] mg by mouth every other day. 07/20/2018 pantoprazole (PROTONIX) 40 mg Tablet, Delayed Release (E.C.) Take 1 tablet by mouth daily. 90 tablet 3 05/23/2017 10/07/2017 documented as of this encounter Progress Notes * Twyla Chaudhary, PT - 07/15/2017 2:03 PM EDT PT referral received. Chart reviewed and pt interviewed. He has been up ambulating independently. No PT needs. He will be best served by cardiac rehab. Twyla Chaudhary, PT Pager [phone] * Ky Amato MD - 07/15/2017 6:26 AM EDT Inpatient Cardiology Progress Note Hospital Day 2 days Active Hospital Problems Diagnosis ??? STEMI (ST elevation myocardial infarction) Resolved Hospital Problems Diagnosis Date Resolved No resolved problems to display. Patient Active Problem List Diagnosis Code ??? STEMI (ST elevation myocardial infarction) I21.3 ID: 46-year-old with strong family history, previous tobacco abuse, and morbid obesity who presents with an inferoposterior ST elevation myocardial infarction to [facility]. He was treated with thrombolytic drugs and transferred for immediate catheterization. Long 85% stenosis of the mid cir cumflex s/p EMMY OM1. 24 Hour Events/Subjective: - CXR shows mild interstitial pulmonary edema - Troponin 4.96 --> 7.00 --> 5.83 (stopped trending) - Step down to [facility] - metoprolol 25mg BID - started lisinopril 2.5 daily - EKG daily; QTc 425 --> 432 --> 411 - TTE still pending - withheld lasix despite elevated EDP - HgbA1c only 5.1; no hyperlipidemia; was a heavy smoker - Less anxious last night; likely because can be with him in [facility] - Walking around this morning - no CP, SOB - BP soft; 90/50's; HR 70's; O2Sat 90's RA - RRR; no m/r/g - CTAb/l - Rare PAC's; improved from previous night's PVC's - Net negative 650cc Inpatient Medications: Scheduled Meds: ??? lisinopril 2.5 mg Oral Daily ??? clopidogrel 75 mg Oral Daily ??? aspirin 81 mg Oral Daily ??? meTOPROLOL tartrate 25 mg Oral 2 times per day ??? pantoprazole 40 mg Oral Daily ??? ziprasidone 20 mg Oral Nightly ??? lamoTRIgine 200 mg Oral Daily ??? clonazePAM 1 mg Oral BID ??? atorvastatin 80 mg Oral QPM ??? heparin (Porcine) 5,000 Units Subcutaneous Q8H VANESA Continuous Infusions: PRN Meds:.nitroGLYcerin Vitals: Last value 24hr range T 37.4 ??C (99.3 ??F) Temp: [36.8 ??C (98.2 ??F)-37.6 ??C (99.7 ??F)] HR 80 Heart Rate: [72-84] BP 99/58 BP: (90-115)/(52-70) RR 18 Resp: [18-22] SpO2 100 % SpO2: [96 %-100 %] Last value Initial Value Wt (!) 173.1 kg (381 lb 9.9 oz) (!) 173.1 kg (381 lb 9.9 oz) Height 167.6 cm (5' 6) 167.6 cm (5' 6) Ins/Outs: Intake/Output Summary (Last 24 hours) at 07/15/17 0626 Last data filed at 07/14/17 1632 Gross per 24 hour Intake 250 ml Output 900 ml Net -650 ml Physical Exam: General: ??Pleasant, alert, appropriate, ??in NAD. ??Appears stated age.? HEENT: EOMI, PERRL, anicteric sclera. Oropharynx clear w/o lesions. Moist mucous membranes Neck: Supple with normal ROM. No obvious LAD. ??No JVD. Cardiac: ??Normal S1 and S2, Regular rate and rhythm; No murmrs/gallops/rubs. Respiratory: ??Nonlabored. Clear to auscultation bilaterally; No wheezes/ rhonci/ rales. Abd: + BS; soft, non-tender, non-distended, no obvious masses. Ext: ??WWP without le edema, cyanosis or clubbing. ??DPP 2+ bilaterally. Neuro: ??II-XII grossly intact. Alert and orientated, ??no-focal deficits, sensation intact to crude touch Skin: ??No rashs, no lesions, no petechiae Labs: Recent Labs 07/15/17 0437 07/14/17 0320 07/13/17 1500 WBC 9.5 11.5* 10.2* HGB 12.3* 13.5* 13.4* HCT 36.5* 38.8* 39.8* PLATELET 145 197 193 Recent Labs 07/13/17 1500 INR 1.2* Recent Labs 07/15/17 0437 07/14/17 0320 07/13/17 1500 NA 137 139 139 K 4.1 4.3 4.4 CL 100 103 103 CO2 25 22 24 BUN 10 11 11 CREATININE 0.88 0.79* 1.01 Recent Labs 07/13/17 1500 AST 193* ALT 35 ALKPHOS 44 BILITOT 0.6 Recent Labs 07/15/17 0437 07/14/17 0320 07/13/17 1500 CALCIUM 8.9 8.6 8.4* MAGNESIUM 0.96 0.70 -- Recent Labs 07/14/17 0320 07/13/17 2110 07/13/17 1500 CK 2165* 2820* 2712* TROPONINT 5.83* 7.00* 4.96* Recent Labs 07/14/17 0320 TSH 1.55 Recent Labs 07/14/17 0320 HA1C 5.1 Lab Results Component Value Date CHLPL 121 07/14/2017 HDL 37 (L) 07/14/2017 CHOLHDL 3.3 07/14/2017 TRIG 72 07/14/2017 LDLCHOL 70 07/14/2017 Imaging: Diagnostic Studies: Coronary Angiography: ?Dominance: Right ?Left Main ?The left main was normal. ?Left Anterior Descending ?The left anterior descending (LAD) was normal. ?Left Circumflex ?There was an 85% long segmental stenosis of the proximal segment of ?the first obtuse marginal branch (OM1) of the left circumflex (LCX). ?There was evidence of thrombus in this lesion. The OM1 was large. ?Right Coronary Artery ?The right coronary artery (RCA) was normal. ?Ramus ?The ramus was normal. ?. ? Intervention Summary: ?First Obtuse Marginal Branch of the LCX ?Proximal 85% ?Stent insertion was performed on the 85% stenosis in the ?proximal segment of the OM1. This was a de gabriela lesion. ?According to the ACC/AHA classification system, this lesion ?was a type B1 moderate risk lesion. Primary prevention of ?restenosis was the indication for stent insertion. This was ?the culprit lesion. Vessel flow pre intervention was TAYLOR 3. ?Stent insertion was accomplished through a 6 Fr. EBU 4.0 ?guide. ??The lesion was predilated with a 3.00mm APEX 12 MM ?balloon with a maximum inflation pressure of 6 atmospheres. ??A ?premounted 4.00 x 18 mm Resolute DARÍO (EMMY) was deployed ?with??a maximum inflation pressure of 12 atmospheres. ? ASSESSMENT/PLAN Mr. Aguilar is a 46 yo with morbid obesity, significant family cardiac hx, ?diabetes, ?HLD, w/ bipolar disorder who presented as transfer for acute inferior STEMI, now s/p cath in OM1 and hemodynamically stable. Received tNK at [facility] prior to transfer. Hemodynamically stable so far, anticipate discharge tomorrow. ? #Inferior STEMI s/p EMMY OM1 - ASA, plavix, metoprolol 25mg BID - Lisinopril 2.5mg daily --> kidney function and K+ wnl - Consider conversion to atenolol, but BP still soft - Tele, regular vitals - Trend troponin - TSH, HgbA1c - Regular CBC, BMP - TTE pending - cardiac rehab; SW to see him today ? #Bipolar Disorder - home lamotrigine 200mg qdaily - ziprasidone 20mg qdaily - as ziprasidone is a QT prolonging medication; no prolongation so far on ekg ? #Others: - DVT prophylaxis: heparin subq - GI prophylaxis: home pantoprazole 40mg - Diet: cardiac diet - Code Status: full - Dispo: pending transfer to floor ? Maryuri Sanchez MD PGY1 Internal Medicine Cardiology S1 Pager [phone] Attending Addendum: The patient was seen and examined in conjunction with the resident on rounds. My history, physical exam findings, assessment, and plan are reflected in that note. Lab and relevant imaging data was reviewed and the plan was communicated with the patient and available family. Doing well and approaching d/c. Advance GDT for CAD meds. Ky Amato MD, [facility] Attending Special Services Director Pager [phone] * Veena Marx - 07/13/2017 7:15 PM EDT Post-Catheterization Progress Note Subjective: Patient denies chest pain, palpitations, dyspnea, light-headedness, right wrist pain, right groin pain, or back pain. Objective: Vitals: Last value Range last 8 hrs Temperature Temp: -- Heart Rate Heart Rate: 78 Heart Rate: [71-78] Blood Pressure BP: 111/72 BP: (108-116)/(65-72) Respiratory Rate Resp: 17 Resp: [16-29] SpO2 SpO2: 98 % SpO2: [94 %-98 %] Gen: NAD Groin: R femoral access site without hematoma or ecchymosis. No active bleeding. Dressing c/d/i. Notenderness to palpation. R radial access site without hematoma or ecchymosis, without active bleeding and dressing is c/d/i, no tenderness to palpation. Abd: No Gregg's sign. Ext: LE warm with 2+ DP pulses. Sensation intact in LE bilaterally. Back: No flank or back tenderness. No retroperitoneal ecchymosis/ Brenner Hartman's sign. A/P: S/p cardiac catheterization with benign appearing R femoral access site and benign appearing R radial access site. Veena Marx MD Internal Medicine, PGY - 2 Cardiology S1 #[id number] documented in this encounter H&P Notes * Ky Amato MD - 07/13/2017 3:05 PM EDT Cardiology Admission History and Physical Patient Name: Rolo Aguilar Service: S1 Team Responsible Attending: MD PCP: Severo Bowman MD PCP phone #: [phone] ID/Chief Complaint: 46yo male History of Present Illness: Mr. Aguilar is a 46yo w/ pMHx Of HTN, HLD, GERD, morbid obesity, depression, bipolar, who presents as transfer from [facility] for chest pain and inferior STEMI. Patient woke up at 6am this morning with a headache from back of head to the front and pressure on chest. Pressure was localized to the LLSB, was constant, but did not radiate anywhere. Patient also felt some pain in jaw. Jonatan cerda thought it was indigestion (felt similar to it), and proceeded to drink with a cup of tea. 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 He also received 1L of NS for BP in the 90/50s. It took an 1 to 1.5 hr to get to [facility]. 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 Patient denies recent illnesses, diarrhea, constipation, coughs, sick contacts PMHx Bipolar HTN ?HLD (last time check 6mo ago was wnl) GERD (scheduled for endoscopy in Nov) SurgHx Tonsillectomy and adenoidectomy at age 5 OSH labs prior to transfer: CBC: wbc 10 Hgb 14 Hct 44 Plt 151 CMP: K 3.5 Bun 12 Cr 0.9 Cardiac enzymes: Tn- <0.06 (wnl at OSH) Review of Systems: GENERAL HEENT CV PULM All negative All negative All negative All negative Weight loss Headache Chest Pain Non-productive cough Weight gain Vision change Palpitations Productive cough Fevers Sinus congestion Orthopnea Wheezing Chills Hoarseness LE edema Hemoptysis Night sweats Epistaxis PND Pleuritic pain Fatigue Syncope SOB Claudication FRAIRE MSK RENAL ENDO GI All negative All negative All negative All negative Arthralgias Frequency Heat intolerance Blood in stool Myalgias Urgency Cold intolerance Dysphagia Weakness Hematuria Polydipsia Odynophagia Stiffness Flank pain Polyphagia Abdominal discomfort Dysuria Cushingoid Constipation Foamy urine Diarrhea Discharge Nausea/Vomiting LYMPH SKIN NEURO PSYCH All negative All negative All negative All negative Swollen nodes Rash Seizures Depressed affect Tender nodes Ulcers Tremors Occupational stress Diffuse nodes Bruising Spasticity Anxiety Local nodes Tanned skin Focal weakness Insomnia Night sweats Telangiectasias Diplopia Paresthesias Dizziness Problem List/Past Medical History Patient Active Problem List Diagnosis ??? STEMI (ST elevation myocardial infarction) Meds: No current facility-administered medications on file prior to encounter. Current Outpatient Prescriptions on File Prior to Encounter Medication Sig Dispense Refill ??? lansoprazole (PREVACID) 30 mg Capsule, Delayed Release(E.C.) Take 30 mg by mouth nightly. ??? ACETYLCYSTEINE (NAC ORAL) Take by mouth. ??? UNABLE TO FIND CBD natural supplement ??? lamoTRIgine (LAMICTAL) 150 mg Tablet Take 150 mg by mouth daily. ??? famotidine (PEPCID) 20 mg Tablet Take 20 mg by mouth 2 times daily. ??? ziprasidone (GEODON) 20 mg Capsule Take 20 mg by mouth nightly. ??? atenolol (TENORMIN) 25 mg Tablet Take 25 mg by mouth 2 times daily. ??? clonazePAM (KLONOPIN) 1 mg Tablet Take 1 mg by mouth 2 times daily as needed for Anxiety. ??? pantoprazole (PROTONIX) 40 mg Tablet, Delayed Release (E.C.) Take 1 tablet by mouth daily. 90 tablet 3 Allergies: Allergies Allergen Reactions ??? Gabapentin ??? Wellbutrin [Bupropion Hcl] ??? Zoloft [Sertraline] Family History: Mother: HTN Father: Had HTN, HLD, mitral valve stenosis, passed from hemorrhagic stroke Siblings: Brother also mitral valve stenosis, younger sister w/ HTN Social History: Tobacco: stopped 3 years (1.5ppd for 32years); quit chewing tabacco 1 years EtOH: occasional glass of whiskey Illicits: denies other ilicit drug use Living Situation: Lives with mother in [place], [place]. Sees Dr. Bowman ([facility]), Sindhu Diana ([facility]). In good relationship with . 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 Appears stated age. HEENT: EOMI, PERRL, anicteric sclera. Oropharynx clear w/o lesions. Moist mucous membranes Neck: Supple with normal ROM. No obvious LAD. No JVD. Cardiac: Normal S1 and S2, Regular rate and rhythm; No murmrs/gallops/rubs. Respiratory: Nonlabored. Clear to auscultation bilaterally; No wheezes/ rhonci/ rales. Abd: + BS; soft, non-tender, non-distended, no obvious masses. Ext: WWP without le edema, cyanosis or clubbing. DPP 2+ bilaterally. Neuro: II-XII grossly intact. Alert and orientated, no-focal deficits, sensation intact to crude touch Skin: No rashs, no lesions, no petechiae Laboratory: CBC: No results for input(s): WBC, HGB, PLATELET in the last 7068 hours. Chemistry: No results for input(s): NA, K, CL, CO2, BUN, CREATININE, GLUCOSE in the last 7068 hours. No results for input(s): CALCIUM, MAGNESIUM, PHOS in the last 7068 hours. LFT's: No results for input(s): BILITOT, BILIDIR, ALBUMIN, ALKPHOS, ALT, AST in the last 7068 hours. Coags: No results for input(s): PT, INR, PTT, FIBRINOGEN, DDIMER in the last 168 hours. Invalid input(s): THROMBIN TIME Cardiac enzymes: No results for input(s): TROPONINT, CK in the last 7068 hours. Endocrine: No results for input(s): TSH, CORTISOL in the last 7068 hours. Invalid input(s): [id number] Heme: No results for input(s): LDH, HAPTOGLOBIN, URICACID in the last 168 hours. Diagnostic Studies: Coronary Angiography: Dominance: Right ? Left Main The left main was normal. ? Left Anterior Descending The left anterior descending (LAD) was normal. ? Left Circumflex There was an 85% long segmental stenosis of the proximal segment of the first obtuse marginal branch (OM1) of the left circumflex (LCX). There was evidence of thrombus in this lesion. The OM1 was large. ? Right Coronary Artery The right coronary artery (RCA) was normal. ? Ramus The ramus was normal. . ? Intervention Summary: First Obtuse Marginal Branch of the LCX Proximal 85% Stent insertion was performed on the 85% stenosis in the proximal segment of the OM1. This was a de gabriela lesion. According to the ACC/AHA classification system, this lesion was a type B1 moderate risk lesion. Primary prevention of restenosis was the indication for stent insertion. This was the culprit lesion. Vessel flow pre intervention was TAYLOR 3. ? Stent insertion was accomplished through a 6 Fr. EBU 4.0 guide. The lesion was predilated with a 3.00mm APEX 12 MM balloon with a maximum inflation pressure of 6 atmospheres. A premounted 4.00 x 18 mm Resolute DARÍO (EMMY) was deployed with a maximum inflation pressure of 12 atmospheres. ? The final outcome was defined as successful. A coronary arteriolar vasodilator was administered as part of the intervention on this lesion. There was no residual stenosis following this intervention. The final TAYLOR flow was 3. Events included no reflow. EKG- ST elevation in inferior leads, with changes in V1 c/w inferior-posterior infarct CXR- pending ASSESSMENT/PLAN Mr. Aguilar is a 46 yo with morbid obesity, significant family cardiac hx, ?diabetes, ?HLD, w/ bipolar disorder who presented as transfer for acute inferior STEMI, now s/p cath in OM1 and hemodynamically stable. Received tNK at [facility] prior to transfer. #Inferior STEMI s/p EMMY OM1 - ASA, plavix, metoprolol 25mg BID - Consider YANDEL-I pending continued stable vitals - Tele, regular vitals - Trend troponin - TSH, HgbA1c - Regular CBC, BMP - CXR - TTE ordered - post cath check - cardiac rehab #Bipolar Disorder - restart home lamotrigine 200mg qdaily - restart ziprasidone 20mg qdaily - as ziprasidone is a QT prolonging medication, will consult psych tmr for alternative medication #Others: - DVT prophylaxis: - GI prophylaxis: home pantoprazole 40mg - Diet: cardiac diet - Code Status: full - Dispo: pending transfer to floor Maryuri Sanchez MD PGY1 Internal Medicine Cardiology S1 Pager [phone] Attending Addendum: The patient was seen and examined in conjunction with the resident on rounds. My history, physical exam findings, assessment, and plan are reflected in that note. Lab and relevant imaging data was reviewed and the plan was communicated with the patient and available family. 46-year-old with strong family history, previous tobacco abuse, and morbid obesity who presents with an inferoposterior ST elevation myocardial infarction to [facility]. He was treated with thrombolytic drugs and transferred for immediate catheterization. In the Multisensor Intelligence Officer, radial access was difficult due to a radial loop. As a result, femoral access was performed and revealed a long 85% stenosis of the mid circumflex which was treated with a drug-eluting stent with a good angiographic result. His hemodynamics have remained stable and his chest pain has resolved. Physical examination demonstrates a morbidly obese gentleman who is nearly 170 kg. His skin has multiple tattoos and his physical exam is compromised by his body size. Our focus will be on risk factor reduction and we will sort out his cardiovascular risk profile. Inthe anterior mediate time, we will continue with his medications as prescribed. He does have underlying psychiatric disease and is on a number of medications to stabilize this, some of which interfere with/prolonged QTc intervals. We will ask for input from psychiatry regarding optimization of these meds to see if there are alternatives which could be less arrhythmogenic. Anticipate a 3 day hospital course. Ky Amato MD, [facility], [facility] Attending Special Services Director Pager [phone] documented in this encounter Miscellaneous Notes * Plan of Care - Thor Bobo RN - 07/16/2017 1:11 AM EDT Problem: Skin Integrity Impairment, Risk/Actual (Adult) Goal: Skin Integrity/Wound Healing Patient will demonstrate the desired outcomes by discharge/transition of care. Outcome: Ongoing (Interventions Implemented as Appropriate) 07/16/17 0106 Skin Integrity Impairment, Risk/Actual (Adult) Skin Integrity/Wound Healing making progress toward outcome Problem: Patient Care Overview Goal: Plan of Care Review Outcome: Ongoing (Interventions Implemented as Appropriate) 07/15/17 0141 07/15/17 1945 Coping/Psychosocial Plan Of Care Reviewed With -- patient;spouse Plan of Care Review Progress no change -- OUTCOME EVALUATION NOTE: OUTCOME SUMMARY: Pt A&O. VSS on RA. No complaints of CP/SOB. Ambulating around unit w/o complications. geodon given tonight. Confirmed with Jah PANDEY. remained at bedside. NSR/SA on tele. Rare PVC's. HR 60-95. occ PAC's PLAN MOVING FORWARD: d/c home INDIVIDUALIZED FALL PREVENTION INTERVENTIONS: Patient-specific fall risk factors per assessment: [current deficits]: Weight, s/p cath, new environment, Assistance [level of assistance required for transfers and ambulation]: IND Supervision [direct monitoring required during toileting and ADLs]: Call weeks within reach, rings appropriately Surveillance [continuous indirect monitoring]: Tele, hourly rounding, call weeks within reach, room near nurses station Patient-specific fall prevention interventions for sensory deficits provided, if applicable: n/a CPG GOAL OUTCOME EVALUATION: Ongoing Goal: Individualization & Mutuality Outcome: Ongoing (Interventions Implemented as Appropriate) 07/14/17 1900 Mutuality/Individual Preferences What Anxieties, Fears or Concerns Do You Have About Your Health or Care? none What Questions Do You Have About Your Health or Care? none What Information Would Help Us Give You More Personalized Care? Call me Bib Goal: Fall Prevention-Safe Patient Handling Outcome: Ongoing (Interventions Implemented as Appropriate) 07/15/17194407/16/17 0000 07/16/17 0106 Restraint Interventions Safety Promotion/Fall Prevention -- safety round/check completed -- Daily Care Interventions Self-Care Promotion -- -- independence encouraged;BADL personal objects within reach;BADL personal routines maintained Chatterjee Fall Risk History of Falling 0 -- -- Secondary Diagnosis 15 -- -- Ambulatory Aids 0 -- -- Intravenous Therapy/Heparin/Saline Lock 20 -- -- Gait/Transferring 0 -- -- Mental Status 0 -- -- Score 35 -- -- OTHER Chatterjee Fall Risk Med -- -- Positioning Body Position independent -- -- Goal: Infection Control Outcome: Ongoing (Interventions Implemented as Appropriate) 07/15/171944 Safety Interventions Isolation Precautions standard precautions maintained Infection Prevention single patient room provided;rest/sleep promoted;personal protective equipmentutilized;environmental surveillance performed Coping Strategies Supportive Measures active listening utilized;self-care encouraged;self- reflection promoted;self-responsibility promoted;verbalization of feelings encouraged Goal: Discharge Needs Assessment Outcome: Ongoing (Interventions Implemented as Appropriate) 07/15/17 0141 Discharge Needs Assessment Concerns To Be Addressed denies needs/concerns at this time Readmission Within The Last 30 Days no previous admission in last 30 days Equipment Needed After Discharge none Discharge Disposition home or self-care;still a patient Current Health Anticipated Changes Related to Illness none Living Environment Transportation Available family or friend will provide Activity/Self Care Review of Systems Equipment Currently Used at Home none Goal: Interdisciplinary Rounds/Family Conf Outcome: Ongoing (Interventions Implemented as Appropriate) 07/16/17 0106 Interdisciplinary Rounds/Family Conf Participants patient;physician;family;nursing Problem: Cardiac Cath/Percutaneous Coronary Intervention (Adult) Goal: Signs and Symptoms of Listed Potential Problems Will be Absent, Minimized or Managed (CardiacCath/Percutaneous Coronary Intervention) Signs and symptoms of listed potential problems will be absent, minimized or managed by discharge/transition of care (reference Cardiac Cath/Percutaneous Coronary Intervention (Adult) CPG). Outcome: Ongoing (Interventions Implemented as Appropriate) 07/16/17 0106 Cardiac Cath/Percutaneous Coronary Intervention Problems Assessed (Cardiac Catheterization) all Problems Present (Cardiac Catheterization) none * Plan of Care - Mavis Gamboa RN - 07/15/2017 3:25 PM EDT Problem: Patient Care Overview Goal: Plan of Care Review Outcome: Ongoing (Interventions Implemented as Appropriate) 07/15/17 0141 07/15/17 075 Coping/Psychosocial Plan Of Care Reviewed With -- patient;spouse Plan of Care Review Progress no change -- OUTCOME EVALUATION NOTE: OUTCOME SUMMARY: Up ambulating in hallway- c/o feeling SOB- sats in the upper 90's. Stairs completed- shower taken-seen by cardiac rehab. PLAN MOVING FORWARD: Discharge in AM INDIVIDUALIZED FALL PREVENTION INTERVENTIONS: Patient-specific fall risk factors per assessment: [current deficits]:none Assistance [level of assistance required for transfers and ambulation]: independent Supervision [direct monitoring required during toileting and ADLs]: call weeks within reach Surveillance [continuous indirect monitoring]: hourly rounds Patient-specific fall prevention interventions for sensory deficits provided, if applicable: CPG GOAL OUTCOME EVALUATION: Goal: Fall Prevention-Safe Patient Handling Outcome: Ongoing (Interventions Implemented as Appropriate) 07/14/17 2300 07/15/17 0141 07/15/17 0753 Restraint Interventions Safety Promotion/Fall Prevention -- fall prevention program maintained;activity supervised;safety round/check completed -- Chatterjee Fall Risk History of Falling 0 -- -- Secondary Diagnosis 15 -- -- Ambulatory Aids 0 -- -- Intravenous Therapy/Heparin/Saline Lock 20 -- -- Gait/Transferring 0 -- -- Mental Status 0 -- -- Score 35 -- -- OTHER Chatterjee Fall Risk Med -- -- Positioning Body Position -- -- independent Goal: Infection Control Outcome: Ongoing (Interventions Implemented as Appropriate) 07/14/17 1035 07/15/17 0753 Safety Interventions Isolation Precautions standard precautions maintained -- Infection Prevention environmental surveillance performed -- Coping Strategies Supportive Measures -- active listening utilized;self-care encouraged Problem: Cardiac Cath/Percutaneous Coronary Intervention (Adult) Goal: Signs and Symptoms of Listed Potential Problems Will be Absent, Minimized or Managed (CardiacCath/Percutaneous Coronary Intervention) Signs and symptoms of listed potential problems will be absent, minimized or managed by discharge/transition of care (reference Cardiac Cath/Percutaneous Coronary Intervention (Adult) CPG). Outcome: Ongoing (Interventions Implemented as Appropriate) 07/15/17 0141 Cardiac Cath/Percutaneous Coronary Intervention Problems Assessed (Cardiac Catheterization) all Problems Present (Cardiac Catheterization) none * Consult Note - Asia Delgado RN - 07/15/2017 11:04 AM EDT Rolo Aguilar was seen today by Cardiac Rehabilitation for: STEMI Activity evaluation - Patient has been ambulating independently on the unit and climbed the stairs with nursing staff this morning prior to taking a shower. Educational packet regarding CAD, cardiac risk factors, and managing angina given to the patient. Heart diagram reviewed. Reviewed managing angina /use of sl nitroglycerin. Mediterranean diet guidelines briefly reviewed. Given parameters for home exercise. 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 He quit smoking 3 years ago. Recently, he made changes in his diet and began walking 3 miles every day. He has lost 40 lbs and is motivated to continueto lose weight and exercise. Reviewed home exercise program with him. He is very interested in participating in cardiac rehab. Participation to an outpatient cardiac rehabilitation program at [facility] was discussed. Patient agrees to a referral to this program. The referral will be sent at discharge and the patient should be contacted by the Program within 1- 2 weeks from discharge. * Initial Assessments - Carolann Smith RN - 07/15/2017 9:21 AM EDT Office of Care Management Initial Assessment Carolann Smith RN reviewed record and discussed patient with Care Team. Source of Information: eDH and patient Introduced self/reviewed role; services accepted. Reason for Hospitalization: STEMI No past medical history on file. Hospitalizations Within the Past 30 Days: None Anticipated Length Of Stay (If known): 3 days Current Decision-Making Capacity: Self, A&Ox3, Full Capacity, Cognitively able to make medical decisions Advance Care Planning: None on file Current Coping/Education/Information Needs: Coping well Current Functional Ability: Independent Functional Status Prior to Admission: Independent Home Environment: Lives with spouse and MIL, single family home, 4 TED w/rails, lives in basement [address] [place] [address] Social & Family Supports/Community Resources: Autumn Extended Emergency Contact Information Primary Emergency Contact: Autumn Aguilar Address: [address] [place] [address] [facility] Relation: Spouse Secondary Emergency Contact: Whitney Piedra Address: [address] [place] [address] [facility] Relation: Sibling Behavioral Health History: History depression, anxiety, and bipolar Substance Use/Abuse: Quit smoking 3 years ago, rare alcohol use, denies illicit drug use Other Pertinent/Service Specific Information: None Health/Prescription Coverage: Payor: [place] / Plan: [place] PRIMARY CARE PLUS / Product Type: *No Product type* / Secondary Insurance: None Prescription Coverage: see above Preferred Pharmacy: [id number] - [place], [place] - [address] [facility] [address] Other: None Primary Care Provider: Seveor Bowman MD [phone] Patient/Caregiver Goals of Treatment: Safe dc plan Potential Needs for Transition of Care: Rehab/SNF: NA Home Health: NA DME: NA Dialysis: NA Community Resources: pt is aware Transportation: Other: None Anticipated Barriers to Discharge/Special Considerations: None Plan: Patient is to discharge when medially ready. No dc needs identified at this time. A member of the Care Management team will continue to monitor progress, follow for continuity of care and assist with transition of care planning. NEGRITA Smith, MS, BSN, RN, Pager [phone] Office of Care Management * Plan of Care - Db Monsalve Braxton - 07/15/2017 1:48 AM EDT Problem: Skin Integrity Impairment, Risk/Actual (Adult) Goal: Skin Integrity/Wound Healing Patient will demonstrate the desired outcomes by discharge/transition of care. Outcome: Ongoing (Interventions Implemented as Appropriate) 07/15/17 0141 Skin Integrity Impairment, Risk/Actual (Adult) Skin Integrity/Wound Healing making progress toward outcome Problem: Patient Care Overview Goal: Plan of Care Review Outcome: Ongoing (Interventions Implemented as Appropriate) 07/15/17 014 Coping/Psychosocial Plan Of Care Reviewed With patient;spouse Plan of Care Review Progress no change OUTCOME EVALUATION NOTE: OUTCOME SUMMARY: Noted and reported to tolerate plan of care. Reviewed personal safety recommendations, medication regime and pertinent psych medications that potentially do not affect QT interval. Patient waits for Psych consult. Stated understanding and agreement. Offered no further questions on assessment. PLAN MOVING FORWARD: Continue plan of care per MD order, nursing process and patient participation. Amend prn. INDIVIDUALIZED FALL PREVENTION INTERVENTIONS: Patient-specific fall risk factors per assessment: [current deficits]: Morbid obesity, inpatient status Assistance [level of assistance required for transfers and ambulation]: standby Supervision [direct monitoring required during toileting and ADLs]: independent Surveillance [continuous indirect monitoring]: tele Patient-specific fall prevention interventions for sensory deficits provided, if applicable: no CPG GOAL OUTCOME EVALUATION: Goal: Individualization & Mutuality Outcome: Ongoing (Interventions Implemented as Appropriate) 07/14/17 1900 Mutuality/Individual Preferences What Anxieties, Fears or Concerns Do You Have About Your Health or Care? none What Questions Do You Have About Your Health or Care? none What Information Would Help Us Give You More Personalized Care? Call me Bib Goal: Fall Prevention-Safe Patient Handling Outcome: Ongoing (Interventions Implemented as Appropriate) 07/14/17 2300 07/15/17 014 Restraint Interventions Safety Promotion/Fall Prevention -- fall prevention program maintained;activity supervised;safety round/check completed Chatterjee Fall Risk History of Falling 0 -- Secondary Diagnosis 15 -- Ambulatory Aids 0 -- Intravenous Therapy/Heparin/Saline Lock 20 -- Gait/Transferring 0 -- Mental Status 0 -- Score 35 -- OTHER Chatterjee Fall Risk Med -- Positioning Body Position independent -- Goal: Infection Control Outcome: Ongoing (Interventions Implemented as Appropriate) 07/14/17 1035 07/14/17 2300 Safety Interventions Isolation Precautions standard precautions maintained -- Infection Prevention environmental surveillance performed -- Coping Strategies Supportive Measures -- active listening utilized Goal: Discharge Needs Assessment Outcome: Ongoing (Interventions Implemented as Appropriate) 07/15/17 0141 Discharge Needs Assessment Concerns To Be Addressed denies needs/concerns at this time Readmission Within The Last 30 Days no previous admission in last 30 days Provider Choice List(s) Given yes Equipment Needed After Discharge none Current Discharge Risk chronically ill Discharge Disposition home or self-care;still a patient Current Health Anticipated Changes Related to Illness none Living Environment Transportation Available family or friend will provide Activity/Self Care Review of Systems Equipment Currently Used at Home none Goal: Interdisciplinary Rounds/Family Conf Outcome: Ongoing (Interventions Implemented as Appropriate) 07/15/17 0141 Interdisciplinary Rounds/Family Conf Participants patient;nursing Problem: Cardiac Cath/Percutaneous Coronary Intervention (Adult) Goal: Signs and Symptoms of Listed Potential Problems Will be Absent, Minimized or Managed (CardiacCath/Percutaneous Coronary Intervention) Signs and symptoms of listed potential problems will be absent, minimized or managed by discharge/transition of care (reference Cardiac Cath/Percutaneous Coronary Intervention (Adult) CPG). Outcome: Ongoing (Interventions Implemented as Appropriate) 07/15/17 0141 Cardiac Cath/Percutaneous Coronary Intervention Problems Assessed (Cardiac Catheterization) all Problems Present (Cardiac Catheterization) none * Plan of Care - Cherelle Loaiza RN - 07/14/2017 6:09 PM EDT Problem: Patient Care Overview Goal: Plan of Care Review 07/14/17 1750 Coping/Psychosocial Plan Of Care Reviewed With patient;spouse OUTCOME EVALUATION NOTE: OUTCOME SUMMARY: Transferred from [facility], A&Ox4, denies pain or SOB. Right radial and femoral sites benign. Ambulatory in yun, c/o SOB. Patient states prior to admission he was walking a mile per day. ACS education packet given to patient along with heart diagram. PLAN MOVING FORWARD: Cardiac Rehab, activity as tolerated, medical optimization, echocardiogram. INDIVIDUALIZED FALL PREVENTION INTERVENTIONS: Patient-specific fall risk factors per assessment: [current deficits]: Unfamiliar environment, generalized weakness Assistance [level of assistance required for transfers and ambulation]: independent Supervision [direct monitoring required during toileting and ADLs]: independent Surveillance [continuous indirect monitoring]: Telemetry, purposeful rounding Patient-specific fall prevention interventions for sensory deficits provided, if applicable: [X] No CPG GOAL OUTCOME EVALUATION: Goal: Fall Prevention-Safe Patient Handling 07/14/17 1035 Chatterjee Fall Risk History of Falling 0 Secondary Diagnosis 15 Ambulatory Aids 0 Intravenous Therapy/Heparin/Saline Lock 20 Gait/Transferring 0 Mental Status 0 Score 35 OTHER Chatterjee Fall Risk Med Restraint Interventions Safety Promotion/Fall Prevention nonskid shoes/slippers when out of bed;safety round/check completed Positioning Body Position independent;up in chair Goal: Infection Control 07/14/17 0900 07/14/17 1035 Safety Interventions Isolation Precautions -- standard precautions maintained Infection Prevention -- environmental surveillance performed Coping Strategies Supportive Measures active listening utilized;decision-making supported;goal setting facilitated;positive reinforcement provided;relaxation techniques promoted;self-care encouraged;self-reflection promoted;self-responsibility promoted;verbalization of feelings encouraged -- Goal: Discharge Needs Assessment 07/14/171749 Discharge Needs Assessment Concerns To Be Addressed denies needs/concerns at this time Readmission Within The Last 30 Days no previous admission in last 30 days Equipment Needed After Discharge none Discharge Disposition still a patient Current Health Anticipated Changes Related to Illness none Living Environment Transportation Available family or friend will provide Goal: Interdisciplinary Rounds/Family Conf 07/14/171749 Interdisciplinary Rounds/Family Conf Participants nursing;patient;physician Problem: Cardiac Cath/Percutaneous Coronary Intervention (Adult) Goal: Signs and Symptoms of Listed Potential Problems Will be Absent, Minimized or Managed (CardiacCath/Percutaneous Coronary Intervention) Signs and symptoms of listed potential problems will be absent, minimized or managed by discharge/transition of care (reference Cardiac Cath/Percutaneous Coronary Intervention (Adult) CPG). 07/14/171749 Cardiac Cath/Percutaneous Coronary Intervention Problems Assessed (Cardiac Catheterization) all Problems Present (Cardiac Catheterization) none documented in this encounter Plan of Treatment Upcoming Encounters Date Type Department Care Team (Latest Contact Info) Description 06/07/2024 2:00 PM EDT Office Visit [place] [address] Joan Castro MD [facility] [place] [address] 06/11/2024 1:03 PM EDT Hospital Encounter [place] [phone] Rachel Carrasco MD [facility] [place] [address] 06/11/2024 1:03 PM EDT - 06/11/2024 1:58 PM EDT Surgery [place] [phone] Rachel aCrrasco MD [facility] [place] [address] CYSTO, REMOVAL OF STENT, FOREIGN BODY OR CALCULUS, SIMPLE (WRVU 2.81) 06/23/2024 10:00 AM EDT Office Visit Cardiology at [address] [place] [phone] Mo Horne MD [facility] [place] [address] Scheduled Procedures Name Priority Associated Diagnoses Date/Ti me CYSTO, REMOVAL OF STENT, FOR EIGN BODY OR CALCULUS, SIMPLE (WRVU 2.81) NEPHROLITHIASIS 06/11/2024 1:03 PM EDT Scheduled Referrals Name Type Priority Associated Diagnoses Orde r Schedule Referral to Cardiac Rehab Outpatient Referral Routine ST elevation myocardial infarction (STEMI), unspecified artery Ordered: 07/16/2017 documented as of this encounter Procedures Procedure Name Priority Date/Time Associated Diagnosis Comments EKG 12-LEAD Routine 07/16/2017 6:[address] elevation myocardial infarction (STEMI), unspecified artery HEMOGRAM Routine 07/16/2017 5:16 AM EDT DIFFERENTIAL, AUTOMATED Routine 07/16/20 5:16 AM EDT CBC (WITH DIFF) Routine 07/16/2017 5:16 AM EDT MAGNESIUM Routine 07/16/2017 5:16 AM EDT BASIC METABOLIC PANEL (NON-FASTING) Routine 07/16/2017 5:16 AM EDT ECHO COMPLETE Routine 07/15/2017 11:[address] elevation myocardial infarction (STEMI), unspecified artery EKG 12-LEAD Routine 07/15/2017 7:[address] elevation myocardial infarction (STEMI), unspecified artery HEMOGRAM Routine 07/15/2017 4:37 AM EDT DIFFERENTIAL, AUTOMATED Routine 07/15/20 17 4:37 AM EDT CBC (WITH DIFF) Routine 07/15/2017 4:37 AM EDT MAGNESIUM Routine 07/15/2017 4:37 AM EDT BASIC METABOLIC PANEL (NON-FASTING) Routine 07/15/2017 4:37 AM EDT EKG 12-LEAD Routine 07/14/2017 8:[address] elevation myocardial infarction (STEMI), unspecified artery POCT GLUCOSE Routine 07/14/2017 8:07 AM EDT HEMOGRAM Routine 07/14/2017 3:20 AM EDT DIFFERENTIAL, AUTOMATED Routine 07/14/20 17 3:20 AM EDT CARDIAC ENZYMES ([facility]) Routine 07/14/2017 3:20 AM EDT CBC (WITH DIFF) Routine 07/14/2017 3:20 AM EDT TSH Routine 07/14/2017 3:20 AM EDT MAGNESIUM Routine 07/14/2017 3:20 AM EDT HEMOGLOBIN A1C Routine 07/14/2017 3:20 AM EDT LIPID PANEL (REFLEX DIRECT LDL) Routine 07/14/2017 3:20 AM EDT BASIC METABOLIC PANEL (NON-FASTING) Routine 07/14/2017 3:20 AM EDT EXECUTIVE PERSONAL ASSISTANT SCAN 07/14/2017 12:00 AM EDT CARDIAC ENZYMES ([facility]) Routine 07/13/2017 9:10 PM EDT XR CHEST ONE VIEW Routine 07/13/2017 7:5 5 PM EDT POCT GLUCOSE Routine 07/13/2017 7:30 PM EDT EKG 12-LEAD Routine 07/13/2017 3:[address] elevation myocardial infarction (STEMI), unspecified artery POCT GLUCOSE Routine 07/13/2017 3:01 PM EDT HEMOGRAM STAT 07/13/2017 3:00 PM EDT DIFFERENTIAL, AUTOMATED STAT 07/13/20 3:00 PM EDT CARDIAC ENZYMES ([facility]) STAT 07/13/2017 3:00 PM EDT APTT Routine 07/13/2017 3:00 PM EDT PROTHROMBIN TIME Routine 07/13/2017 3:00 PM EDT CBC (WITH DIFF) STAT 07/13/2017 3:00 PM EDT COMPREHENSIVE METABOLIC PANEL (NON-FASTING) STAT 07/13/2017 3:00 PM EDT CARDIAC CATHETERIZATION Routine 07/13/20 2:[address] elevation myocardial infarction (STEMI), unspecified artery documented in this encounter Results * EKG 12 Lead (07/16/2017 6:45 AM EDT) Ventricular rate 72 BPM MUSE SYSTEM Atrial Rate 72 BPM MUSE SYSTEM P-R Interval 150 ms MUSE SYSTEM QRS Duration 96 ms MUSE SYSTEM Q-T Interval 374 ms MUSE SYSTEM QTC Calculated (Bezet) 409 ms MUSE SYSTEM Calculated P Granger 30 degrees MUSE SYSTEM Calculated R Granger 21 degrees MUSE SYSTEM Calculated T Granger 14 degrees MUSE SYSTEM INTERPRETATION Normal sinus rhythm Inferior-fisher reef net ior infarct , age undetermined Abnormal ECG When compared with ECG of 15-JUL-2017 07:31, Inferior-fisher reef net ior infarct is now Present Inverted T waves have replaced nonspecific T wave abnormality in Inferior leads Confirmed by MD Jennie, Severiano ([id number]) on 07/16/2017 5:00:13 PM MUSE SYSTEM 07/16/2017 6:45 AM EDT 07/16/2017 5:00 PM EDT Ky Amato MD ECG ORDERABLES MUSE SYSTEM * Differential, Automated (07/16/2017 5:16 AM EDT) Pathologist [facility] Neutrophils % 61.5 % [facility] Neutr Abs (ANC) 5.29 1.70 - 6.10 x10(3)/[facility] Lymphocytes % 28.6 % [facility] Lymphocytes Abs 2.5 0.9 - 3.2 x10(3)/[facility] Monocytes % 7.7 % [facility] Monocyte Abs 0.7 0.3 - 0.9 x10(3)/[facility] Eosinophils % 1.2 % [facility] Eosinophils Abs 0.1 0.0 - 0.4 x10(3)/[facility] Basophils % 0.5 % [facility] Basophils Abs 0.0 0.0 - 0.1 x10(3)/[facility] Immature Gran % 0.50 % [facility] Comment: Immature granulocytes(IG's)percentage and absolute count will include metamyelocytes, myelocytes, and promyelocytes. Blood smears from CBCs yielding IG's will be scanned manually for concordance. If this scan disagrees with the automated IG or if promyelocytes are noted, a manual differential will be performed. Amy Gran Abs 0.04 0.00 - 0.04 x10(3)/[facility] Blood specimen (specimen) 07/16/2017 5:16 AM EDT 07/16/2017 5:31 AM EDT Narrative Resulting Agency Comment Spec In Lab Ky Amato MD HEMATOLOGY ORDERABLE S [facility] [place] [address] * (ABNORMAL) Hemogram (07/16/2017 5:16 AM EDT) WBC 8.6 4.0 - 9.5 x10(3)/[facility] RBC 3.94(L) 4.58 - 5.54 x10(6)/[facility] Hemoglobin 11.6(L) 13.7 - 16.5 gm/dL [facility] Hematocrit 34.5(L) 40.5 - 48.5 % [facility] MCV 87.6 82.9 - 93.1 fL [facility] MCH 29.4 27.5 - 32.1 pg [facility] MCHC 33.6 32.0 - 35.7 gm/dL [facility] Platelets 128(L) 145 - 357 x10(3)/[facility]AT[facility] RDWSD 43.5 36.0 - 45.0 fL [facility] RDWCV 13.5 11.4 - 13.8 % [facility] MPV 10.0 7.6 - 12.9 fL [facility] nRBC % Auto 0.0 % [facility] nRBC Abs Auto 0.000 0.000 - 0.000 x10(3)/mcL [facility] Blood specimen (specimen) 07/16/2017 5:16 AM EDT 07/16/2017 5:31 AM EDT Narrative Resulting Agency Comment Spec In Lab Ky Amato MD HEMATOLOGY ORDERABLE S Performing Organization Address [facility] Co de Phone Number [facility] [place] [address] * Magnesium (07/16/2017 5:16 AM EDT) Pathologist [facility] Magnesium 0.82 0.69 - 1.07 mmol/L [facility] Blood specimen (specimen) 07/16/2017 5:16 AM EDT 07/16/2017 5:31 AM EDT Narrative Resulting Agency Comment Spec In Lab Ky Amato MD CHEMISTRY ORDERABLES Performing Organization Address [facility] Co de Phone Number [facility] [place] [address] * Basic Metabolic Panel (non-fasting) (07/16/2017 5:16 AM EDT) [facility] Glucose Lvl 107 65 - 199 mg/dL [facility] Comment:Diabetes: >=200 mg/d L plus symptoms BUN 11 10 - 20 mg/dL [facility] Creatinine 1.05 0.80 - 1.50 mg/dL [facility] Comment: Please note that the pediatric reference intervals supplied above were not validated at [facility]. Results from pediatric patients should be interpreted in conjunction to the patient's age, height and muscle mass. Sodium 139 135 - 145 mmol/L [facility] Potassium 4.0 3.5 - 5.0 mmol/L [facility] Comment: Please note: ??Patients with WBC >100,000 may have falsely elevated Potassium levels. ??For accurate Potassium quantification in these patients send serum separator tube (gold top) for subsequent determinations. ??Contact the Clinical Chemistry Laboratory if there are any questions. Chloride 101 98 - 107 mmol/L [facility] CO2 26 22 - 31 mmol/L [facility] Anion Gap 12 5 - 15 mmol/L [facility] Calcium 9.0 8.5 - 10.5 mg/dL [facility] Estimated GFR >60 >=60 [facility] Comment: This estimated GFR (eGFR) value was calculated using the MDRD equation which has been validated on patients between the ages of 18 and 70. The MDRD should not be used to assess kidney function in patients < 18 years of age or in patients with extremes of body mass, or in patients with acute kidney failure. This value should be multiplied by 1.2 for patients. For further information please copy and paste the following links into your internet browser. [email or web address]/[email or web address] [email or web address] Blood specimen (specimen) 07/16/2017 5:16 AM EDT 07/16/2017 5:31 AM EDT Narrative Resulting Agency Comment Spec In Lab Ky Amato MD CHEMISTRY ORDERABLES [facility] [place] [address] * ECHO COMPLETE (07/15/2017 11:23 AM EDT) EF 60 [facility] Anatomical Region Laterality Modality Other 07/15/2017 Narrative 07/15/2017 1:08 PM EDT Procedure: ?Transthoracic Echocardiogram Patient: ?JEFF SHERWOOD M ?(Age): 1970(46y) Med Rec#: ? [id number] ?Sex: ?M ? Site Loc: ? [facility] ?Ht / Wt: ??168(cm)/173(kg) Pt. Loc: ?Echo Lab ?BSA: ?2.64 Study Date: ?? 07/15/2017 ?Pt. Type: Inpatient Tape: ? Referring: SEVERO GREEN R Referring: Ky Amato Reading: Dao Perez ([id number]) Order Processing Manager: Gabriel Silva [facility] Diagnosis: *ICD-10-PCS ST elevation (STEMI) myocardial infarction of unspecified site (I21.3) BP: ? 100/60 SUMMARY: 1. The left ventricular chamber size is normal. ??There is normal global left ventricular systolic function. ??The quantitative left ventricular ejection fraction by biplane Malik's method is 60%. ??There are left ventricular segmental wall motion abnormalities present at [facility] inferolateral wall, as coded in the diagram below. 2. Right ventricular chamber size, wall thickness, and systolic function are within normal limits. 3. See remainder of report for additional findings. 4. No prior echo available for comparison. Findings ? : Left Ventricle: ? The left ventricular chamber size is normal. ?Left ventricular wall thickness is normal. ?There is normal global left ventricular systolic function. ?The quantitative left ventricular ejection fraction by biplane Malik's method is 60%. ?There are left ventricular segmental wall motion abnormalities present, as shown in the diagram below. ?Doppler assessment is consistent with normal left sided filling pressure. ?The ??basal inferior wall segment is hypokinetic (score 2). ?The ??basal inferolateral, and ??mid inferolateral wall segments are akinetic (score 3). ?Overall wallmotion score index is ??1.31 Left Atrium: ? The left atrium is normal in size.33 ml/m2 Right Ventricle: ? Right ventricular chamber size, wall thickness, and systolic function are within normal limits. ?Pulmonary artery hypertension could not be assessed due to inadequate tricuspid regurgitation jet. Right Atrium: ? The right atrium is mildly dilated. Aortic Valve: ? The aortic valve is [...] ? A trivial pericardial effusion is visualized. Aorta: ? The aortic root [...] ?Value ?Units (Range) ? IVSd (2D) ? 0.9 ?cm ? LVPWd (2D) ?1.4 ?cm ? IVS:LVPW ratio (2D) 0.6 ?ratio ? RWT (2D) ?0.5 ?ratio ? RWT PW (2D) ? 0.6 ?ratio ? LVIDd (2D) ?5.1 ?cm ? LVIDs (2D) ?3.8 ?cm ? LVIDd (2D) index ?1.9 ?cm/m2 ? LVIDs (2D) index ?1.4 ?cm/m2 ? LV FS (2D) ?27 ? % ? EF Teichholz (2D) ?? 52 ? % ? Ao root diameter (2D2.7 ?cm (2.1 - 3.6) ? Ascending Ao ?3.1 ?cm (2 - 3.5) ? Volumes/Mass ?Value ?Units (Range) ? LA Area 4 CH ?29 ? cm2 (<21) ? RA AREA 4CH ? 22 ? cm2 ? LA ESV BP (MOD) inde32.6 ? ml/m2 ? LV ESV SP 4CH (MOD) 49 ? ml ? LV ESV SP 2CH (MOD) 55 ? ml ? LV EDV BP ? 132 ?ml ? LV ESV BP ? 53 ? ml ? LV EDV BP index ? 50 ? ml/m2 ? LV ESV BP index ? 20.1 ? ml/m2 ? BP EF (MOD) ? 60 ? % ? LV mass (2D) ?234.9 ?g ? LV mass (2D) index ??89 ? g/m2 ? Diastolic/Systolic Function ?Value ?Units (Range) ? MV E-wave Vmax ?0.9 ?m/sec ? MV deceleration [id number] ?msec ? MV A-wave Vmax ?0.5 ?m/sec ? MV E:A ratio ?1.6 ?ratio ? LV septal e' Vmax ?? 0.1 ?m/sec ? LV lateral e' Vmax ??0.1 ?m/sec ? LV average e' Vmax ??0.1 ?m/sec ? LV E:e' septal ratio12.4 ? ratio ? LV E:e' lateral rati12.2 ? ratio ? LV average E:e' rati12.5 ? ratio ? Tricuspid Valve ?Value ?Units (Range) ? RAP ? 8 ?mmHg ? Wall Motion: Segment Name ?Rest ? Base-Anteroseptal ?? Normal ? Base-Anterior ? Normal ? Base-Anterolateral ??Normal ? Base-Posterolateral Akinetic ? Base-Inferior ? Hypokinetic ? Base-Inferoseptal ?? Normal ? Mid-Anteroseptal ?Normal ? Mid-Anterior ?Normal ? Mid-Anterolateral ?? Normal ? Mid-Posterolateral ??Akinetic ? Mid-Inferior ?Normal ? Mid-Inferoseptal ?Normal ? [place]-Septal ? Normal ? [place]-Anterior ? Normal ? [place]-Lateral ?Normal ? [place]-Inferior ? Normal ? [place]-Tip ?Normal ? This report has been electronically signed by: Dao Perez MD ? 07/15/2017 13:08:41 Images reviewed and interpretation verified [facility] Cardiac Ultrasound Laboratory Procedure Note Dao Perez MD - 07/15/2017 Procedure: Transthoracic Echocardiogram Patient: JEFF Rodney (Age): 1970(46y) Med Rec#: [id number] Sex: M [place] Loc[place] [facility] Ht / Wt: 168(cm)/173(kg) Pt. Loc: Echo Lab BSA: 2.64 Study Date: 07/15/2017 Pt. Type: Inpatient Tape: Referring: SEVERO GREEN R Referring: Ky Amato Reading: Dao Perez ([id number]) Order Processing Manager: Gabriel Silva [facility] Diagnosis: *ICD-10-PCS ST elevation (STEMI) myocardial infarction of unspecified site (I21.3) BP: 100/60 SUMMARY: 1. The left ventricular chamber size is normal. There is normal global left ventricular systolic function. The quantitative left ventricular ejection fraction by biplane Malik's method is 60%. There are left ventricular segmental wall motion abnormalities present at [facility] inferolateral wall, as coded in the diagram below. 2. Right ventricular chamber size, wall thickness, and systolic function are within normal limits. 3. See remainder of report for additional findings. 4. No prior echo available for comparison. Findings : Left Ventricle: The left ventricular chamber size is normal. Left ventricular wall thickness is normal. There is normal global left ventricular systolic function. The quantitative left ventricular ejection fraction by biplane Malik's method is 60%. There are left ventricular segmental wall motion abnormalities present, as shown in the diagram below. Doppler assessment is consistent with normal left sided filling pressure. The basal inferior wall segment is hypokinetic (score 2). The basal inferolateral, and mid inferolateral wall segments are akinetic (score 3). Overall wallmotion score index is 1.31 Left Atrium: The left atrium is normal in size.33 ml/m2 Right Ventricle: Right ventricular chamber size, wall thickness, and systolic function are within normal limits. Pulmonary artery hypertension could not be assessed due to inadequate tricuspid regurgitation jet. Right Atrium: The right atrium is mildly dilated. Aortic Valve: The aortic valve is not [...] Pericardium: A trivial pericardial effusion is visualized. Aorta: The aortic root is normal in size. The ascending aorta is normal in size. Pulmonary Artery: The main pulmonary artery appears normal. Venous: The inferior vena cava appears dilated. There is a greater than 50% respiratory change in the inferior vena cava dimension. Misc: Two-dimensional echo, spectral Doppler and color Doppler performed. Chambers 2D Value Units (Range) IVSd (2D) 0.9 cm LVPWd (2D) 1.4 cm IVS:LVPW ratio (2D) 0.6 ratio RWT (2D) 0.5 ratio RWT PW (2D) 0.6 ratio LVIDd (2D) 5.1 cm LVIDs (2D) 3.8 cm LVIDd (2D) index 1.9 cm/m2 LVIDs (2D) index 1.4 cm/m2 LV FS (2D) 27 % EF Teichholz (2D) 52 % Ao root diameter (2D2.7 cm (2.1 - 3.6) Ascending Ao 3.1 cm (2 - 3.5) Volumes/Mass Value Units (Range) LA Area 4 CH 29 cm2 (<21) RA AREA 4CH 22 cm2 LA ESV BP (MOD) inde32.6 ml/m2 LV ESV SP 4CH (MOD) 49 ml LV ESV SP 2CH (MOD) 55 ml LV EDV BP 132 ml LV ESV BP 53 ml LV EDV BP index 50 ml/m2 LV ESV BP index 20.1 ml/m2 BP EF (MOD) 60 % LV mass (2D) 234.9 g LV mass (2D) index 89 g/m2 Diastolic/Systolic Function Value Units (Range) MV E-wave Vmax 0.9 m/sec MV deceleration [id number] msec MV A-wave Vmax 0.5 m/sec MV E:A ratio 1.6 ratio LV septal e' Vmax 0.1 m/sec LV lateral e' Vmax 0.1 m/sec LV average e' Vmax 0.1 m/sec LV E:e' septal ratio12.4 ratio LV E:e' lateral rati12.2 ratio LV average E:e' rati12.5 ratio Tricuspid Valve Value Units (Range) RAP 8 mmHg Wall Motion: Segment Name Rest Base-Anteroseptal Normal Base-Anterior Normal Base-Anterolateral Normal Base-Posterolateral Akinetic Base-Inferior Hypokinetic Base-Inferoseptal Normal Mid-Anteroseptal Normal Mid-Anterior Normal Mid-Anterolateral Normal Mid-Posterolateral Akinetic Mid-Inferior Normal Mid-Inferoseptal Normal [place]-Septal Normal [place]-Anterior Normal [place]-Lateral Normal [place]-Inferior Normal [place]-Tip Normal This report has been electronically signed by: Dao Perez MD 07/15/2017 13:08:41 Images reviewed and interpretation verified [facility] Cardiac Ultrasound Laboratory Ky Amato MD ECHO ORDERABLES * EKG 12 Lead (07/15/2017 7:31 AM EDT) Ventricular rate 81 BPM MUSE SYSTEM Atrial Rate 81 BPM MUSE SYSTEM P-R Interval 134 ms MUSE SYSTEM QRS Duration 94 ms MUSE SYSTEM Q-T Interval 354 ms MUSE SYSTEM QTC Calculated (Bezet) 411 ms MUSE SYSTEM Calculated P Granger 36 degrees MUSE SYSTEM Calculated R Granger 36 degrees MUSE SYSTEM Calculated T Granger 45 degrees MUSE SYSTEM INTERPRETATION Normal sinus rhythm Normal ECG When compared with ECG of 14-JUL-2017 08:54, (unconfirmed) Criteria for Inferior-posterio r infarct are no longer Present I personally reviewed the tracing and edited the fellows interpretation Confirmed by fellow MD Linda, Jerri Rodney ([id number]) on 07/15/2017 11:45:01 AM Confirmed by MEÑO ??KY PANDEY ([id number]) on 07/15/2017 12:47:33 PM MUSE SYSTEM 07/15/2017 7:31 AM EDT 07/15/2017 12:47 PM EDT Ky Amato MD ECG ORDERABLES MUSE SYSTEM * (ABNORMAL) Differential, Automated (07/15/2017 4:37 AM EDT) Pathologist [facility] Neutrophils % 65.1 % [facility] Neutr Abs (ANC) 6.19(H) 1.70 - 6.10 x10(3)/mc L [facility] Lymphocytes % 23.2 % [facility] Lymphocytes Abs 2.2 0.9 - 3.2 x10(3)/[facility] LABORATORY Monocytes % 9.7 % [facility] Monocyte Abs 0.9 0.3 - 0.9 x10(3)/[facility]ORATORY Eosinophils % 1.3 % [facility] Eosinophils Abs 0.1 0.0 - 0.4 x10(3)/[facility]ORATORY Basophils % 0.3 % [facility] Basophils Abs 0.0 0.0 - 0.1 x10(3)/[facility]ORATORY Immature Gran % 0.40 % [facility] Comment: Immature granulocytes(IG's)percentage and absolute count will include metamyelocytes, myelocytes, and promyelocytes. Blood smears from CBCs yielding IG's will be scanned manually for concordance. If this scan disagrees with the automated IG or if promyelocytes are noted, a manual differential will be performed. Amy Gran Abs 0.04 0.00 - 0.04 x10(3)/[facility] LABORATORY Blood specimen (specimen) 07/15/2017 4:37 AM EDT 07/15/2017 4:46 AM EDT Narrative Resulting Agency Comment Spec In Lab Ky Amato MD HEMATOLOGY ORDERABLE S [facility] [place] [address] * (ABNORMAL) Hemogram (07/15/2017 4:37 AM EDT) WBC 9.5 4.0 - 9.5 x10(3)/[facility] LABORATORY RBC 4.24(L) 4.58 - 5.54 x10(6)/[facility] LABORATORY Hemoglobin 12.3(L) 13.7 - 16.5 gm/dL [facility] Hematocrit 36.5(L) 40.5 - 48.5 % [facility] MCV 86.1 82.9 - 93.1 fL [facility] MCH 29.0 27.5 - 32.1 pg [facility] MCHC 33.7 32.0 - 35.7 gm/dL [facility] Platelets 145 145 - 357 x10(3)/[facility] LABORATORY RDWSD 42.3 36.0 - 45.0 [facility] LABORATORY RDWCV 13.5 11.4 - 13.8 % [facility] MPV 10.2 7.6 - 12.9 [facility] LABORATORY nRBC % Auto 0.0 % [facility] nRBC Abs Auto 0.000 0.000 - 0.000 x10(3)/[facility] LABORATORY Blood specimen (specimen) 07/15/2017 4:37 AM EDT 07/15/2017 4:46 AM EDT Narrative Resulting Agency Comment Spec In Lab Ky Amato MD HEMATOLOGY ORDERABLE S Performing Organization Address City/[facility]/ZIP Co de Phone Number [facility] [place] [address] * Magnesium (07/15/2017 4:37 AM EDT) Pathologist [facility] Magnesium 0.96 0.69 - 1.07 mmol/L [facility] Blood specimen (specimen) 07/15/2017 4:37 AM EDT 07/15/2017 4:46 AM EDT Narrative Resulting Agency Comment Spec In Lab Ky Amato MD CHEMISTRY ORDERABLES Performing Organization Address [facility] Co de Phone Number [facility] [place] [address] * Basic Metabolic Panel (non-fasting) (07/15/2017 4:37 AM EDT) Glucose Lvl 114 65 - 199 mg/dL [facility] Comment:Diabetes: >=200 mg/d L plus symptoms BUN 10 10 - 20 mg/dL [facility] Creatinine 0.88 0.80 - 1.50 mg/dL [facility] Comment: Please note that the pediatric reference intervals supplied above were not validated at [facility]. Results from pediatric patients should be interpreted in conjunction to the patient's age, height and muscle mass. Sodium 137 135 - 145 mmol/L [facility] Potassium 4.1 3.5 - 5.0 mmol/L [facility] Comment: Please note: ??Patients with WBC >100,000 may have falsely elevated Potassium levels. ??For accurate Potassium quantification in these patients send serum separator tube (gold top) for subsequent determinations. ??Contact the Clinical Chemistry Laboratory if there are any questions. Chloride 100 98 - 107 mmol/L [facility] CO2 25 22 - 31 mmol/L [facility] Anion Gap 12 5 - 15 mmol/L [facility] Calcium 8.9 8.5 - 10.5 mg/dL [facility] Estimated GFR >60 >=60 [facility] Comment: This estimated GFR (eGFR) value was calculated using the MDRD equation which has been validated on patients between the ages of 18 and 70. The MDRD should not be used to assess kidney function in patients < 18 years of age or in patients with extremes of body mass, or in patients with acute kidney failure. This value should be multiplied by 1.2 for patients. For further information please copy and paste the following links into your internet browser. [email or web address] [email or web address] Blood specimen (specimen) 07/15/2017 4:37 AM EDT 07/15/2017 4:46 AM EDT Narrative Resulting Agency Comment Spec In Lab Ky Amato MD CHEMISTRY ORDERABLES [facility] [place] [address] * EKG 12 Lead (07/14/2017 8:54 AM EDT) [facility] Ventricular rate 84 BPM MUSE SYSTEM Atrial Rate 84 BPM MUSE SYSTEM P-R Interval 148 ms MUSE SYSTEM QRS Duration 96 ms MUSE SYSTEM Q-T Interval 366 ms MUSE SYSTEM QTC Calculated (Bezet) 432 ms MUSE SYSTEM Calculated P Granger 40 degrees MUSE SYSTEM Calculated R Granger 36 degrees MUSE SYSTEM Calculated T Granger 62 degrees MUSE SYSTEM INTERPRETATION Normal sinus rhythm Low voltage QRS Inferior-po sterior infarct (cited on or before 13-JUL-2017 ) Abnormal ECG When compared with ECG of 13-JUL-2017 15:02, (unconfirme d) Serial changes of evolving Inferior-po sterior infarct Present Confirmed by MD Alecia, Ruperto Moya ([id number]) on 07/15/2017 12:53:12 PM MUSE SYSTEM 07/14/2017 8:54 AM EDT 07/15/2017 12:53 PM EDT Ky Amato MD ECG ORDERABLES Performing Organization Address City/[facility] Co de Phone Number MUSE SYSTEM * POCT Glucose (07/14/2017 8:07 AM EDT) [facility] POC Glucose 122 65 - 199 mg/dL [facility] Comment: Supplemental ranges: <140 mg/dL before meals <180 mg/dL all other times of the day Blood specimen (specimen) 07/14/2017 8:07 AM EDT 07/14/2017 8:07 AM EDT Ky Amato MD POINT OF CARE TEST O RDERABLES Performing Organization Address City/[facility]/ZIP Co de Phone Number [facility] [place] [address] * (ABNORMAL) Cardiac Enzymes (07/14/2017 3:20 AM EDT) [facility] Troponin-T 5.83(H) 0.00 - 0.00 ng/mL [facility] Comment: result rechecked-[facility] The 99th percentile for Troponin T is less than 0.01 ng/mL, any detectable cTnT concentration using this assay should be considered elevated. According to the third universal definition of myocardial infarction the following criteria with a clinical presentation consistent with acute myocardial ischemia meets the diagnosis for a myocardial infarction (NM). Detection of a rise and/or fall of cTnT, with at least one value greater than the 99th percentile (> or = 0.01) and with at least one of the following ?? Symptoms of ischemia ?? New or presumed new significant NP-zkmyaqg-Y wave (ST-T) changes or new left bundle [...] additional sample may be indicated. Reference: Third [place] Definition of Myocardial Infarction. Journal of the [place] [employer] 2012;60:1581-98 CK, Total 2,165(H) 0 - 200 unit/L [facility] Blood specimen (specimen) Venous Draw / Unknown 07/14/2017 3:20 AM EDT 07/14/2017 3:33 AM EDT Narrative Resulting Agency Comment Spec In Lab Ky Amato MD CHEMISTRY ORDERABLES [facility] [place] [place] [address] * (ABNORMAL) Differential, Automated (07/14/2017 3:20 AM EDT) Neutrophils % 81.8 % [facility] Neutr Abs (ANC) 9.44(H) 1.70 - 6.10 x10(3)/mc L [facility] Lymphocytes % 11.2 % [facility] Lymphocytes Abs 1.3 0.9 - 3.2 x10(3)/mc L [facility] Monocytes % 6.2 % [facility] Monocyte Abs 0.7 0.3 - 0.9 x10(3)/mc L [facility] Eosinophils % 0.1 % [facility] Eosinophils Abs 0.0 0.0 - 0.4 x10(3)/[facility] LABORATORY Basophils % 0.3 % [facility] Basophils Abs 0.0 0.0 - 0.1 x10(3)/[facility] LABORATORY Immature Gran % 0.40 % [facility] Comment: Immature granulocytes(IG's)percentage and absolute count will include metamyelocytes, myelocytes, and promyelocytes. Blood smears from CBCs yielding IG's will be scanned manually for concordance. If this scan disagrees with the automated IG or if promyelocytes are noted, a manual differential will be performed. Amy Gran Abs 0.05(H) 0.00 - 0.04 x10(3)/[facility] LABORATORY Blood specimen (specimen) 07/14/2017 3:20 AM EDT 07/14/2017 3:33 AM EDT Narrative Resulting Agency Comment Spec In Lab Ky Amato MD HEMATOLOGY ORDERABLE S Performing Organization Address City/State/[facility] Co de Phone Number [facility] [place] [address] * (ABNORMAL) Hemogram (07/14/2017 3:20 AM EDT) WBC 11.5(H) 4.0 - 9.5 x10(3)/[facility] LABORATORY RBC 4.56(L) 4.58 - 5.54 x10(6)/[facility] LABORATORY Hemoglobin 13.5(L) 13.7 - 16.5 gm/dL [facility] Hematocrit 38.8(L) 40.5 - 48.5 % [facility] MCV 85.1 82.9 - 93.1 fL [facility] MCH 29.6 27.5 - 32.1 pg [facility] MCHC 34.8 32.0 - 35.7 gm/dL [facility] Platelets 197 145 - 357 x10(3)/[facility] RDWSD 42.0 36.0 - 45.0 fL [facility] RDWCV 13.6 11.4 - 13.8 % [facility] MPV 10.4 7.6 - 12.9 fL [facility] nRBC % Auto 0.0 % [facility] nRBC Abs Auto 0.000 0.000 - 0.000 x10(3)/mcL [facility] Blood specimen (specimen) 07/14/2017 3:20 AM EDT 07/14/2017 3:33 AM EDT Narrative Resulting Agency Comment Spec In Lab Ky Amato MD HEMATOLOGY ORDERABLE S Performing Organization Address [facility]/ZIP Co de Phone Number [facility] [place] [address] * Magnesium (07/14/2017 3:20 AM EDT) [facility] Magnesium 0.70 0.69 - 1.07 mmol/L [facility] Blood specimen (specimen) 07/14/2017 3:20 AM EDT 07/14/2017 3:33 AM EDT Narrative Resulting Agency Comment Spec In Lab Ky Amato MD CHEMISTRY ORDERABLES Performing Organization Address [facility] Co de Phone Number [facility] [place] [address] * (ABNORMAL) Basic Metabolic Panel (non-fasting) (07/14/2017 3:20 AM EDT) Pathologist [facility] Glucose Lvl 129 65 - 199 mg/dL [facility] Comment:Diabetes: >=200 mg/d L plus symptoms BUN 11 10 - 20 mg/dL [facility] Creatinine 0.79(L) 0.80 - 1.50 mg/dL [facility] Comment: Please note that the pediatric reference intervals supplied above were not validated at [facility]. Results from pediatric patients should be interpreted in conjunction to the patient's age, height and muscle mass. Sodium 139 135 - 145 mmol/L [facility] Potassium 4.3 3.5 - 5.0 mmol/L [facility] Comment: Please note: ??Patients with WBC >100,000 may have falsely elevated Potassium levels. ??For accurate Potassium quantification in these patients send serum separator tube (gold top) for subsequent determinations. ??Contact the Clinical Chemistry Laboratory if there are any questions. Chloride 103 98 - 107 mmol/L [facility] CO2 22 22 - 31 mmol/L [facility] Anion Gap 14 5 - 15 mmol/L [facility] Calcium 8.6 8.5 - 10.5 mg/dL [facility] Estimated GFR >60 >=60 [facility] Comment: This estimated GFR (eGFR) value was calculated using the MDRD equation which has been validated on patients between the ages of 18 and 70. The MDRD should not be used to assess kidney function in patients < 18 years of age or in patients with extremes of body mass, or in patients with acute kidney failure. This value should be multiplied by 1.2 for patients. For further information please copy and paste the following links into your internet browser. [email or web address] [email or web address] Blood specimen (specimen) 07/14/2017 3:20 AM EDT 07/14/2017 3:33 AM EDT Narrative Resulting Agency Comment Spec In Lab Ky Amato MD CHEMISTRY ORDERABLES Performing Organization Address City/[facility] Co de Phone Number [facility] [place] [address] * TSH (07/14/2017 3:20 AM EDT) TSH 1.55 0.27 - 4.20 mlU/ML [facility] Blood specimen (specimen) 07/14/2017 3:20 AM EDT 07/14/2017 3:33 AM EDT Narrative Resulting Agency Comment Spec In Lab Ky Amato MD CHEMISTRY ORDERABLES Performing Organization Address [facility]/ZIP Co de Phone Number [facility] [place] [address] * (ABNORMAL) Lipid Panel (07/14/2017 3:20 AM EDT) Chol, Total 121 <=239 mg/dL [facility] Triglycerides 72 <=199 mg/dL [facility] HDL 37(L) >=40 mg/dL [facility] LDL Cholesterol 70 <=190 mg/dL [facility] Chol/HDL Ratio 3.3 ratio [facility] Lipid Interpretation See Note [facility] Comment: Lipid management should be guided by a patient? s ASCVD risk, goals and preferences. ACC/AHA Guidelines recommend high intensity statin if clinical ASCVD or LDL greater than or equal to 190 mg/dL. http://Faraday.[employer]/OCF-EOO-Sqjxzblsu Adults aged 40-75 with LDL 70-189 mg/dL should have their 10 year ASCVD risk estimated with the ACC/AHA ASCVD risk manufacturing cost estimator http://tools.acc.org/RTPDE-Vili-Fuixzjfde/ Statin should be discussed if risk greater [...] of ASCVD risk reduction. Blood specimen (specimen) 07/14/2017 3:20 AM EDT 07/14/2017 3:33 AM EDT Narrative Resulting Agency Comment Spec In Lab Ky Amato MD CHEMISTRY ORDERABLES [facility] [place] [address] * Hemoglobin A1c (07/14/2017 3:20 AM EDT) Hemoglobin A1C 5.1 4.3 - 5.6 % [facility] Comment: Reference Range: 4.3 - [...] Mellitus, Diabetes Care 2013; 36: Suppl. 1, S67-74 Est Avg Gluc 100 mg/dL [facility] Comment: eAG equivalents for HbA1c percentages: [...] into estimated average glucose values. ??Diabetes Care 2008:31(8):7073-6183. Blood specimen (specimen) 07/14/2017 3:20 AM EDT 07/14/2017 3:33 AM EDT Narrative Resulting Agency Comment Spec In Lab Ky Amato MD CHEMISTRY ORDERABLES [facility] [place] [address] * SCAN DOC: EXECUTIVE PERSONAL ASSISTANT (07/14/2017 12:00 AM EDT) Anatomical Region Laterality Modality Other Narrative 07/14/2017 12:00 AM EDT Ordered by an unspecified provider. Scanning Provider MEDIA MGR SCAN EXT O RDR/RSLT * (ABNORMAL) Cardiac Enzymes (07/13/2017 9:10 PM EDT) Troponin-T 7.00(H) 0.00 - 0.00 ng/mL [facility] Comment: Result rechecked. The 99th percentile for Troponin T is less than 0.01 ng/mL, any detectable cTnT concentration using this assay should be considered elevated. According to the third universal definition of myocardial infarction the following criteria with a clinical presentation consistent with acute myocardial ischemia meets the diagnosis for a myocardial infarction (NM). Detection of a rise and/or fall of cTnT, with at least one value greater than the 99th percentile (> or = 0.01) and with at least one of the following ?? Symptoms of ischemia ?? New or presumed new significant PO-nnzsrey-X wave (ST-T) changes or new left bundle [...] additional sample may be indicated. Reference: Third [place] Definition of Myocardial Infarction. Journal of the [place] [employer] 2012;60:1581-98 CK, Total 2,820(H) 0 - 200 unit/L [facility] Blood specimen (specimen) 07/13/2017 9:10 PM EDT 07/13/2017 9:14 PM EDT Narrative Resulting Agency Comment Spec In Lab Ky Amato MD CHEMISTRY ORDERABLES [facility] [place] [address] * XR Chest PA or AP 1 view (07/13/2017 7:55 PM EDT) Anatomical Region Laterality Modality Chest N/A Digital Radiogra phy Impressions 07/13/2017 8:05 PM EDT Mild interstitial pulmonary edema. Narrative 07/13/2017 8:05 PM EDT EXAMINATION: XR CHEST PA OR AP 1 VIEW CLINICAL HISTORY: s/p cath TECHNIQUE: AP semiupright portable chest 07/13/2017 at 1945 hours COMPARISON: None FINDINGS: There is no pneumothorax or pleural effusion. Lungs are moderately well inflated. There is enlargement of the central pulmonary vascularity with vascular indistinctness and minimal peribronchial cuffing. No interlobular septal thickening. Heart size and mediastinum are within normal limits for radiographic projection. No displaced rib fracture or focal bone lesion. Procedure Note Millie Lanza MD - 07/13/2017 EXAMINATION: XR CHEST PA OR AP 1 VIEW CLINICAL HISTORY: s/p cath TECHNIQUE: AP semiupright portable chest 07/13/2017 at 1945 hours COMPARISON: None FINDINGS: There is no pneumothorax or pleural effusion. Lungs are moderately well inflated. There is enlargement of the central pulmonary vascularity with vascular indistinctness and minimal peribronchial cuffing. Nointerlobular septal thickening. Heart size and mediastinum are within normal limitsfor radiographic projection. No displaced rib fracture or focal bone lesion. IMPRESSION Mild interstitial pulmonary edema. Ky Amato MD IMG DX ORDERABLES * POCT Glucose (07/13/2017 7:30 PM EDT) POC Glucose 110 65 - 199 mg/dL [facility] Comment: Supplemental ranges: <140 mg/dL before meals <180 mg/dL all other times of the day Blood specimen (specimen) 07/13/2017 7:30 PM EDT 07/13/2017 7:30 PM EDT Ky Amato MD POINT OF CARE TEST O RDERABLES [facility] [place] [address] * EKG 12 Lead (07/13/2017 3:02 PM EDT) Pathologist [facility] Ventricular rate 76 BPM MUSE SYSTEM Atrial Rate 76 BPM MUSE SYSTEM P-R Interval 158 ms MUSE SYSTEM QRS Duration 92 ms MUSE SYSTEM Q-T Interval 378 ms MUSE SYSTEM QTC Calculated (Bezet) 425 ms MUSE SYSTEM Calculated P Granger 39 degrees MUSE SYSTEM Calculated R Granger 51 degrees MUSE SYSTEM Calculated T Granger 68 degrees MUSE SYSTEM INTERPRETATION Normal sinus rhythm Inferior-poste rior infarct , possibly acute * ACUTE NM ?? Consider right ventricular involvement in acute inferior infarct Abnormal ECG No previous ECGs available Confirmed by MD Alecia, Ruperto Moya ([id number]) on 07/15/2017 12:53:01 PM MUSE SYSTEM 07/13/2017 3:02 PM EDT 07/15/2017 12:53 PM EDT Ky Amato MD ECG ORDERABLES Performing Organization Address City/[facility]/ZIP Co de Phone Number MUSE SYSTEM * POCT Glucose (07/13/2017 3:01 PM EDT) [facility] POC Glucose 113 65 - 199 mg/dL [facility] Comment: Supplemental ranges: <140 mg/dL before meals <180 mg/dL all other times of the day Blood specimen (specimen) 07/13/2017 3:01 PM EDT 07/13/2017 3:01 PM EDT Ky Amato MD POINT OF CARE TEST O RDERABLES Performing Organization Address City/[facility]/ZIP Co de Phone Number [facility] [place] [address] * (ABNORMAL) Differential, Automated (07/13/2017 3:00 PM EDT) [facility] Neutrophils % 80.0 % [facility] Neutr Abs (ANC) 8.14(H) 1.70 - 6.10 x10(3)/mc L [facility] Lymphocytes % 14.4 % [facility] Lymphocytes Abs 1.5 0.9 - 3.2 x10(3)/[facility] LABORATORY Monocytes % 4.8 % [facility] Monocyte Abs 0.5 0.3 - 0.9 x10(3)/[facility] LABORATORY Eosinophils % 0.1 % [facility] Eosinophils Abs 0.0 0.0 - 0.4 x10(3)/[facility] LABORATORY Basophils % 0.3 % [facility] Basophils Abs 0.0 0.0 - 0.1 x10(3)/[facility] LABORATORY Immature Gran % 0.40 % [facility] Comment: Immature granulocytes(IG's)percentage and absolute count will include metamyelocytes, myelocytes, and promyelocytes. Blood smears from CBCs yielding IG's will be scanned manually for concordance. If this scan disagrees with the automated IG or if promyelocytes are noted, a manual differential will be performed. Amy Gran Abs 0.04 0.00 - 0.04 x10(3)/[facility] LABORATORY Blood specimen (specimen) 07/13/2017 3:00 PM EDT 07/13/2017 3:18 PM EDT Narrative Resulting Agency Comment Spec In Lab Ky Amato MD HEMATOLOGY ORDERABLE S [facility] [place] [address] * (ABNORMAL) Hemogram (07/13/2017 3:00 PM EDT) WBC 10.2(H) 4.0 - 9.5 x10(3)/[facility] LABORATORY RBC 4.60 4.58 - 5.54 x10(6)/[facility] LABORATORY Hemoglobin 13.4(L) 13.7 - 16.5 gm/dL [facility] Hematocrit 39.8(L) 40.5 - 48.5 % [facility] MCV 86.5 82.9 - 93.1 [facility] LABORATORY MCH 29.1 27.5 - 32.1 pg [facility] MCHC 33.7 32.0 - 35.7 gm/dL [facility] Platelets 193 145 - 357 x10(3)/[facility] LABORATORY RDWSD 41.3 36.0 - 45.0 [facility] LABORATORY RDWCV 13.4 11.4 - 13.8 % [facility] MPV 9.9 7.6 - 12.9 [facility] LABORATORY nRBC % Auto 0.0 % [facility] nRBC Abs Auto 0.000 0.000 - 0.000 x10(3)/[facility] LABORATORY Blood specimen (specimen) 07/13/2017 3:00 PM EDT 07/13/2017 3:18 PM EDT Narrative Resulting Agency Comment Spec In Lab Ky Amato MD HEMATOLOGY ORDERABLE S Performing Organization Address City/[facility]/ZIP Co de Phone Number [facility] [place] [address] * (ABNORMAL) APTT (07/13/2017 3:00 PM EDT) PTT 138(Criti torey) 25 - 35 sec [facility] Comment: Called by: [facility], Read back by: Germaine Núñez/CVCC, Date/Time:07/13/17 15:39. The recommended therapeutic range for full dose, unfractionated heparin at [facility] is 80 ? 114 seconds. The use of the anti-Xa (heparin) level rather than the PTT is recommended for monitoring anticoagulation intensity in critically ill patients receiving unfractionated heparin by continuous IV infusion. Blood specimen (specimen) 07/13/2017 3:00 PM EDT 07/13/2017 3:18 PM EDT Narrative Resulting Agency Comment Spec In Lab Ky Amato MD HEMATOLOGY ORDERABLE S [facility] [place] [address] * (ABNORMAL) Prothrombin Time (07/13/2017 3:00 PM EDT) PT 16.0(H) 12.0 - 15.0 sec [facility] Comment: An INR <2.0 [...] may be appropriate depending on clinical circumstances. INR 1.2(H) 0.9 - 1.1 [facility] Blood specimen (specimen) 07/13/2017 3:00 PM EDT 07/13/2017 3:18 PM EDT Narrative Resulting Agency Comment Spec In Lab Ky Amato MD HEMATOLOGY ORDERABLE S [facility] [place] [address] * (ABNORMAL) Cardiac Enzymes (07/13/2017 3:00 PM EDT) Troponin-T 4.96(H) 0.00 - 0.00 ng/mL [facility] Comment: The 99th percentile for Troponin T is less than 0.01 ng/mL, any detectable cTnT concentration using this assay should be considered elevated. According to the third universal definition of myocardial infarction the following criteria with a clinical presentation consistent with acute myocardial ischemia meets the diagnosis for a myocardial infarction (NM). Detection of a rise and/or fall of cTnT, with at least one value greater than the 99th percentile (> or = 0.01) and with at least one of the following ?? Symptoms of ischemia ?? New or presumed new significant RE-zsiomvf-L wave (ST-T) changes or new left bundle [...] additional sample may be indicated. Reference: Third [place] Definition of Myocardial Infarction. Journal of the [place] [employer] 2012;60:1581-98 CK, Total 2,712(H) 0 - 200 unit/L [facility] Blood specimen (specimen) 07/13/2017 3:00 PM EDT 07/13/2017 3:18 PM EDT Narrative Resulting Agency Comment Spec In Lab Ky Amato MD CHEMISTRY ORDERABLES [facility] [place] [address] * (ABNORMAL) Comprehensive metabolic panel (non-fasting) (07/13/2017 3:00 PM EDT) Glucose Lvl 119 65 - 199 mg/dL [facility] Comment:Diabetes: >=200 mg/d L plus symptoms BUN 11 10 - 20 mg/dL [facility] Creatinine 1.01 0.80 - 1.50 mg/dL [facility] Comment: Please note that the pediatric reference intervals supplied above were not validated at [facility]. Results from pediatric patients should be interpreted in conjunction to the patient's age, height and muscle mass. Sodium 139 135 - 145 mmol/L [facility] Potassium 4.4 3.5 - 5.0 mmol/L [facility] Comment: Please note: ??Patients with WBC >100,000 may have falsely elevated Potassium levels. ??For accurate Potassium quantification in these patients send serum separator tube (gold top) for subsequent determinations. ??Contact the Clinical Chemistry Laboratory if there are any questions. Chloride 103 98 - 107 mmol/L [facility] CO2 24 22 - 31 mmol/L [facility] Anion Gap 12 5 - 15 mmol/L [facility] Calcium 8.4(L) 8.5 - 10.5 mg/dL [facility] Total Protein 6.0(L) 6.1 - 8.0 gm/dL [facility] Albumin 3.0(L) 3.2 - 5.2 gm/dL [facility] AST 193(H) 0 - 39 unit/L [facility] ALT 35 0 - 55 unit/L [facility] Alk Phos 44 40 - 120 unit/L [facility] Total Bilirubin 0.6 0.2 - 1.3 mg/dL [facility] Estimated GFR >60 >=60 [facility] Comment: This estimated GFR (eGFR) value was calculated using the MDRD equation which has been validated on patients between the ages of 18 and 70. The MDRD should not be used to assess kidney function in patients < 18 years of age or in patients with extremes of body mass, or in patients with acute kidney failure. This value should be multiplied by 1.2 for patients. For further information please copy and paste the following links into your internet browser. [email or web address] [email or web address] Blood specimen (specimen) 07/13/2017 3:00 PM EDT 07/13/2017 3:18 PM EDT Narrative Resulting Agency Comment Spec In Lab Ky Amato MD CHEMISTRY ORDERABLES Performing Organization Address City/State/[facility] Co de Phone Number [facility] [place] [address] * CARDIAC CATHETERIZATION (07/13/2017 2:29 PM EDT) Anatomical Region Laterality Modality Other Narrative 07/13/2017 2:53 PM EDT ?[facility] ? Cardiac Catheterization/Intervention Report ? Patient Name: Jeff, Rolo M ? Procedure Date: 07/13/2017 ? A #: [id number] ? Primary Physician: White, Neftali V ? Case #: [id number] ? File Name: [id number] ? Catheterization Order Number: [id number] ? [facility] ? Final Report [place], [place] ? Patient Name: ? Rolo M Jeff ? ID#: ?[id number] ? : ?1970 ? Procedure Date: ? July 13, 2017 ?Case #: ? [id number] ? Room: ? 5 ? Case Physician: ? Neftali White M.D. ? Start: ?12:30 ?Fellow: ? Raghavendra Hurd M.D. ? Admission: ??07/13/2017 ? Discharge: ??07/16/2017 ? Referring Physician: ??Severo Bowman M.D. ? Procedures: ?* Coronary Angiography ?* Left Heart Catheterization ?* Coronary Stent Insertion ?* Access Site Angiography ? Pre Case Status: ?These procedures were performed on an emergent basis. ? History ?Rolo Aguilar is a 46 year old man. He has hypertension, a family ?history of coronary artery disease and morbid obesity. The patient has a ?history of smoking. He has hypercholesterolemia managed with lipid ?therapy. The patient is also status post an acute ST elevation myocardial ?infarction. Prior to the initiation of this procedure, the patient was ?designated as ASA Class IV. ? Patient Status at Catheterization: ?The patient presented with: ST-Elevation NM (STEMI) or equivalent (w/i 7 ?days). [place] [employer] angina class was IV. This patient ?received full dose lytics. No stress or imaging studies were performed ?prior to this procedure ? Technique: ?A 6 SLFr sheath was inserted in the right radial artery utilizing the ?Seldinger technique. A 6Fr sheath was inserted in the right femoral ?artery utilizing the Seldinger technique. The left coronary artery was ?injected utilizing a 6Fr JL 4 catheter. A 6Fr JR 4 catheter was used to ?inject the right coronary artery. Left ventricular pressure was performed ?with a 6Fr JR 4 catheter. Coronary stent insertion was performed and the ?equipment utilized will be described in the intervention summary section. ?3,000 units of heparin were administered. A total of 200cc of Omnipaque ?were opened, 102cc of Omnipaque were administered and 98cc of Omnipaque ?were wasted. Radiation: Fluoro time was 13.7 minutes, dose area product ?was 134,639 mGYcm2 and air kerma was 2,137 mGY. ?The patient received the following medications prior to and during the ?procedure: Aspirin (any), Clopidogrel and Unfractionated Heparin (any). ? Hemodynamics: ?Left Heart Pressures ? Resting: ? Syst Diast ? EDP ?a ?v ? m ?Ao 103 ?? 69 ?87 ?LV 111 ? 24 ? Post Contrast: ? Syst Diast ? EDP ?a ?v ? m ?Ao 111 ?? 58 ?LV 111 ? 24 ? Coronary Angiography: ?Dominance: Right ?Left Main ? The left main was normal. ?Left Anterior Descending ? The left anterior descending (LAD) was normal. ?Left Circumflex ? There was an 85% long segmental stenosis of the proximal segment of ? the first obtuse marginal branch (OM1) of the left circumflex (LCX). ?There was evidence of thrombus in this lesion. The OM1 was large. ?Right Coronary Artery ? The right coronary artery (RCA) was normal. ?Ramus ? The ramus was normal. ? Indication for Intervention: ?Coronary intervention was indicated for primary therapy for an acute ?myocardial infarction. Left Ventricular Ejection fraction was not ?assessed. The priority for the procedure was Emergent. The NCDR ?indication for the procedure was STEMI (Stable after successful full- dose ?Thrombolysis). ? Intervention Summary: ?First Obtuse Marginal Branch of the LCX ? Proximal 85% ? Stent insertion was performed on the 85% stenosis in the ? proximal segment of the OM1. This was a de gabriela lesion. ? According to the ACC/AHA classification system, this lesion ? was a type B1 moderate risk lesion. Primary prevention of ? restenosis was the indication for stent insertion. This was ? the culprit lesion. Vessel flow pre intervention was TAYLOR 3. ? Stent insertion was accomplished through a 6 Fr. EBU 4.0 ? guide. ??The lesion was predilated with a 3.00mm APEX 12 MM ? balloon with a maximum inflation pressure of 6 atmospheres. ??A ? premounted 4.00 x 18 mm Resolute DARÍO (EMMY) was deployed with ? a maximum inflation pressure of 12 atmospheres. ? The final outcome was defined as successful. A coronary ? arteriolar vasodilator was administered as part of the ? intervention on this lesion. There was no residual stenosis ? following this intervention. The final TAYLOR flow was 3. Events ? included no reflow. ? Vascular Access: ?Vascular Access Angiogram: ? A selective angiogram at the right radial artery revealed no ? significant obstructive disease. A selective angiogram at the access ? site also revealed See note below. ? A selective angiogram at the right femoral artery revealed no ? significant obstructive disease. ?Vascular Access Management: ? Mechanical Compression of the right radial artery access site was ? performed. ? A Perclose was deployed at the right femoral artery access site. ? This device was successful. ? Dual Antiplatelet (DAPT) Recommendations: ?Drug eluting stent (EMMY) inserted. 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 ?Recommend continuing clopidogrel 75 mg PO daily for 12 months. ??Recommend ?continuing aspirin 81 mg unless intolerant. ? Conclusions: ?* One vessel coronary artery disease (LCX) ?* Elevated left ventricular end diastolic pressure ?* Successful stent insertion of the proximal OM1 lesion ?* Recommend continuing clopidogrel 75 mg PO daily for 12 months (see DAPT ?Recommendations above for more information.) ? Complications/Events: ?The patient had no complications during these procedures. ? Comments: ?Radial Access ?Radial access obtained in usual fashion. ??Versicor wire placed into ?ascending aorto without difficulties. ??Unable to pass diagnostic JR4. ?Jeimy demonstrated an impressive radial loop. ??Femoral access was then ?obtained. ?The attending physician was present for the entire procedure. ?Dr. Neftali White M.D. was present during the moderate sedation ?intraservice time as documented by the sedation nurse. ??Case time = 01:56. ?Dr. Neftali White M.D. performed the coronary angiography, left heart ?catheterization, stent insertion-coronary and access site angiography. ? Neftali White M.D. ? Electronically Signed by: Neftali White M.D. ? Report Finalized: 07/13/2017 ??14:45 ? Report Last Ammended: 10/23/2017 ??13:36 ? Procedure Note Neftali White MD - 10/23/2017 [facility] Cardiac Catheterization/Intervention Report Patient Name: Rolo Aguilar Procedure Date: 07/13/2017 A #: [id number] Primary Physician: Neftali Wihte V Case #: [id number] File Name: [id number] Catheterization Order Number: [id number] [facility] FinalReport [place], [place] Patient Name: Rolo Aguilar ID#:[id number] :1970 Procedure Date: July 13, 2017 Case #: [id number] Room: 5 Case Physician: Neftali White M.D. Start: 12:30 Fellow: Raghavendra Hurd M.D. Admission:07/13/2017 Discharge:07/16/2017 Referring Physician: Severo Bowman M.D. Procedures: * Coronary Angiography * Left Heart Catheterization * Coronary Stent Insertion * Access Site Angiography Pre Case Status: These procedures were performed on an emergent basis. History Rolo Aguilar is a 46 year old man. He has hypertension, afamily history of coronary artery disease and morbid obesity. The patienthas a history of smoking. He has hypercholesterolemia managed with lipid therapy. The patient is also status post an acute ST elevationmyocardial infarction. Prior to the initiation of this procedure, the patientwas designated as ASA Class IV. Patient Status at Catheterization: The patient presented with: ST-Elevation NM (STEMI) or equivalent(w/i 7 days). [place] [employer] angina class was IV. Thispatient received full dose lytics. No stress or imaging studies wereperformed prior to this procedure Technique: A 6 SLFr sheath was inserted in the right radial artery utilizingthe Seldinger technique. A 6Fr sheath was inserted in the right femoral artery utilizing the Seldinger technique. The left coronary arterywas injected utilizing a 6Fr JL 4 catheter. A 6Fr JR 4 catheter was usedto inject the right coronary artery. Left ventricular pressure wasperformed with a 6Fr JR 4 catheter. Coronary stent insertion was performed andthe equipment utilized will be described in the intervention summarysection. 3,000 units of heparin were administered. A total of 200cc ofOmnipaque were opened, 102cc of Omnipaque were administered and 98cc ofOmnipaque were wasted. Radiation: Fluoro time was 13.7 minutes, dose areaproduct was 134,639 mGYcm2 and air kerma was 2,137 mGY. The patient received the following medications prior to and duringthe procedure: Aspirin (any), Clopidogrel and Unfractionated Heparin(any). Hemodynamics: Left Heart Pressures Resting: Syst Diast EDP a v m Ao 103 69 87 LV 111 24 Post Contrast: Syst Diast EDP a v m Ao 111 58 LV 111 24 Coronary Angiography: Dominance: Right Left Main The left main was normal. Left Anterior Descending The left anterior descending (LAD) was normal. Left Circumflex There was an 85% long segmental stenosis of the proximalsegment of the first obtuse marginal branch (OM1) of the left circumflex(LCX). There was evidence of thrombus in this lesion. The OM1 waslarge. Right Coronary Artery The right coronary artery (RCA) was normal. Ramus The ramus was normal. Indication for Intervention: Coronary intervention was indicated for primary therapy for an acute myocardial infarction. Left Ventricular Ejection fraction was not assessed. The priority for the procedure was Emergent. The [facility] indication for the procedure was STEMI (Stable after successfulfull-dose Thrombolysis). Intervention Summary: First Obtuse Marginal Branch of the LCX Proximal 85% Stent insertion was performed on the 85% stenosis in the proximal segment of the OM1. This was a de gabriela lesion. According to the ACC/AHA classification system, thislesion was a type B1 moderate risk lesion. Primary prevention of restenosis was the indication for stent insertion. Thiswas the culprit lesion. Vessel flow pre intervention was TIMI3. Stent insertion was accomplished through a 6 Fr. EBU 4.0 guide. The lesion was predilated with a 3.00mm APEX 12MM balloon with a maximum inflation pressure of 6atmospheres. A premounted 4.00 x 18 mm Resolute DARÍO (EMMY) was deployedwith a maximum inflation pressure of 12 atmospheres. The final outcome was defined as successful. A coronary arteriolar vasodilator was administered as part of the intervention on this lesion. There was no residualstenosis following this intervention. The final TAYLOR flow was 3.Events included no reflow. Vascular Access: Vascular Access Angiogram: A selective angiogram at the right radial artery revealed no significant obstructive disease. A selective angiogram at theaccess site also revealed See note below. A selective angiogram at the right femoral artery revealed no significant obstructive disease. Vascular Access Management: Mechanical Compression of the right radial artery access sitewas performed. A Perclose was deployed at the right femoral artery accesssite. This device was successful. Dual Antiplatelet (DAPT) Recommendations: Drug eluting stent (EMMY) inserted. 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 Recommend continuing clopidogrel 75 mg PO daily for 12 months.Recommend continuing aspirin 81 mg unless intolerant. Conclusions: * One vessel coronary artery disease (LCX) * Elevated left ventricular end diastolic pressure * Successful stent insertion of the proximal OM1 lesion * Recommend continuing clopidogrel 75 mg PO daily for 12 months (seeDAPT Recommendations above for more information.) Complications/Events: The patient had no complications during these procedures. Comments: Radial Access Radial access obtained in usual fashion. Versicor wire placed into ascending aorto without difficulties. Unable to pass diagnosticJR4. Angrio demonstrated an impressive radial loop. Femoral access wasthen obtained. The attending physician was present for the entire procedure. Dr. Neftali White M.D. was present during the moderate sedation intraservice time as documented by the sedation nurse. Case time =01:56. Dr. Neftali White M.D. performed the coronary angiography, leftheart catheterization, stent insertion-coronary and access site angiography. Neftali White M.D. Electronically Signed by: Neftali White M.D. Report Finalized: 07/13/2017 14:45 Report Last Ammended: 10/23/2017 13:36 Neftali Grijalva MD CARDIAC CATH ORDERAB LES documented in this encounter Visit Diagnoses Diagnosis ST elevation myocardial infarction (STEMI), unspecified artery STEMI (ST elevation myocardial infarction) Acute myocardial infarction, unspecified site, episode of care unspecified ST elevation myocardial infarction (STEMI), unspecified artery documented in this encounter Administered Medications Inactive Administered Medications - up to 3 most recent administrations Medication Order MAR Action Action Date Dose Rate Site aspirin EC tablet 81 mg 81 mg, Oral, DAILY, First dose on 07/14/17 at 0900, Until Discontinued, Recovery (Recovery-Hospital Unit), Routine Given 07/16/2017 8:32 AM EDT 81 mg Given 07/15/2017 8:19 AM EDT 81 mg Given 07/14/2017 9:06 AM EDT 81 mg atorvastatin (LIPITOR) tablet 80 mg 80 mg, Oral, EVERY EVENING, First dose on 07/13/17 at 1815, Until Discontinued, Routine Given 07/15/2017 4:44 PM EDT 80 mg Given 07/14/2017 5:08 PM EDT 80 mg Given 07/13/2017 8:17 PM EDT 80 mg calcium carbonate (TUMS) chewable tablet 500 mg 500 mg, Oral, ONCE, 1 dose, On Fri07/13/17 at 2215, Routine Given 07/13/2017 10:14 PM EDT 500 mg clonazePAM (KlonoPIN) tablet 1 mg 1 mg, Oral, 2 TIMES DAILY, First dose on Fri07/13/17 at 2100, Until Discontinued, Routine Given 07/16/2017 8:33 AM EDT 1 mg Given 07/15/2017 8:26 PM EDT 1 mg Given 07/15/2017 8:20 AM EDT 1 mg clopidogrel (PLAVIX) tablet 75 mg 75 mg, Oral, DAILY, First dose on Fri07/14/17 at 0900, Until Discontinued, Recovery (Recovery-Hospital Unit), Routine Given 07/16/2017 8:33 AM EDT 75 mg Given 07/15/2017 8:20 AM EDT 75 mg Given 07/14/2017 9:06 AM EDT 75 mg fentaNYL 50mcg/mL injection 25 mcg, Intravenous, Administer over 4 Hours, EVERY 15 MIN PRN, Starting on Fri07/13/17 at 1450, Until Fri07/13/17 at 1917, Pain, For sheath removal, May repeat once, while in Cath Recovery Unit, Cath (Recovery-Hospital Unit), Routine Given 07/13/2017 3:17 PM EDT 25 mcg heparin (Porcine) subcutaneous injection 5,000 Units 5,000 Units, Subcutaneous, EVERY 8 HOURS SCHEDULED, First dose on Fri07/14/17 at 0600, Until Discontinued, Routine Given 07/16/2017 5:17 AM EDT 5,000 Unit s Given 07/15/2017 8:35 PM EDT 5,000 Units Given 07/15/2017 2:31 PM EDT 5,000 Units lamoTRIgine (LaMICtal) tablet 200 mg 200 mg, Oral, DAILY, First dose on Fri07/13/17 at 1800, Until Discontinued, Routine Given 07/15/2017 8:31 PM EDT 200 mg Given 07/14/2017 8:33 PM EDT 200 mg Given 07/13/2017 8:18 PM EDT 200 mg lisinopril (PRINIVIL;ZESTRIL) tablet 2.5 mg 2.5 mg, Oral, DAILY, First dose on Fri07/14/17 at 0900, Until Discontinued, Routine Given 07/16/2017 8:33 AM EDT 5 mg Given 07/15/2017 8:21 AM EDT 2.5 mg Given 07/14/2017 9:10 AM EDT 2.5 mg LORazepam (ATIVAN) tablet 0.5 mg 0.5 mg, Oral, ONCE, 1 dose, On 07/14/17 at 0045, Routine Given 07/14/2017 1:17 AM EDT 0.5 mg magnesium sulfate 2 g in sterile water 50 mL 2 g, Intravenous, ONCE, 1 dose, On Fri07/14/17 at 0745, Administer over 120 Minutes New Bag 07/14/2017 8:08 AM EDT 2 g 25 mL/hr melatonin tablet 3 mg 3 mg, Oral, ONCE, 1 dose, On Fri07/14/17 at 0045, Routine Given 07/14/2017 1:17 AM EDT 3 mg meTOPROLOL tartrate (LOPRESSOR) tablet 25 mg 25 mg, Oral, EVERY 12 HOURS SCHEDULED (2 times per day), First dose on Fri07/13/17 at 2100, Until Discontinued, Routine Given 07/16/2017 8:34 AM EDT 25 mg Given 07/15/2017 8:26 PM EDT 25 mg Given 07/15/2017 8:19 AM EDT 25 mg oxyCODONE-acetaminophen (PERCOCET) 5-325 mg per tablet 1 tablet 1 tablet, Oral, Administer over 1 Days, EVERY 4 HOURS PRN, Starting on Fri07/13/17 at 1450, Until Fri07/14/17 at 0832, Pain, May repeat in 30-60 minutes if pain not relieved, Cath (Recovery-Hospital Unit), Routine Given 07/13/2017 3:53 PM EDT 1 tablet pantoprazole (PROTONIX) tablet 40 mg 40 mg, Oral, DAILY, First dose on Fri07/13/17 at 1630, Until Discontinued, DO NOT CRUSH OR OPEN Given 07/16/2017 8:34 AM EDT 40 mg Given 07/15/2017 8:22 AM EDT 40 mg Given 07/14/2017 8:04 AM EDT 40 mg sodium chloride 0.9% infusion 50 mL/hr, Intravenous, CONTINUOUS, Starting on Fri07/13/17 at 1515, Until Fri07/13/17 at 2014, Recovery (Recovery-Hospital Unit) Rate/Dose Change 07/13/2017 8:00 PM EDT 10 mL/hr 10 mL/hr Rate/Dose Verify 07/13/2017 6:00 PM EDT 50 mL/hr 50 mL/h r New Bag 07/13/2017 3:15 PM EDT 50 mL/hr 50 mL/hr ziprasidone (GEODON) capsule 20 mg 20 mg, Oral, NIGHTLY, First dose on 07/13/17 at 2100, Until Discontinued, May cause prolongation of QT interval. Take with food., Routine Given 07/15/2017 8:26 PM EDT 20 mg documented in this encounter Active and Recently Administered Medications Times are shown in EDT. Scheduled Medication Order 07/14/2017 07/15/2017 07/16/2017 aspirin EC tablet 81 mg 81 mg, Oral, DAILY, First dose on Fri07/14/17 at 0900, Until Discontinued, Recovery (Recovery-Hospital Unit), Routine 09 (Given - Provider: Rachana Macias RN) 0819 (Given - Provider: Mavis Gamboa RN) 0832 (Given - Provider: Mavis Gamboa RN) atorvastatin (LIPITOR) tablet 80 mg 80 mg, Oral, EVERY EVENING, First dose on 07/13/17 at 1815, Until Discontinued, Routine 1708 (Given - Provider: Cherelle Loaiza RN) 1644 (Given - Provider: Mavis Gamboa RN) clonazePAM (KlonoPIN) tablet 1 mg 1 mg, Oral, 2 TIMES DAILY, First dose on 07/13/17 at 2100, Until Discontinued, Routine 09 (Given - Provider: Rachana Macias RN)2024 (Given - Provider: bD Monsalve) 08 (Given - Provider: Mavis Gamboa RN)2025 (Given - Provider: Thor Bobo RN) 0833 (Given - Provider: Mavis Gamboa RN) clopidogrel (PLAVIX) tablet 75 mg 75 mg, Oral, DAILY, First dose on Fri07/14/17 at 0900, Until Discontinued, Recovery (Recovery-Hospital Unit), Routine 0906 (Given - Provider: Rachana Macias RN) 0820 (Given - Provider: Mavis Gamboa RN) 0833 (Given - Provider: Mavis Gamboa RN) heparin (Porcine) subcutaneous injection 5,000 Units 5,000 Units, Subcutaneous, EVERY 8 HOURS SCHEDULED, First dose on Fri07/14/17 at 0600, Until Discontinued, Routine 0610 (Given - Provider: Maria G Carrasco RN)1510 (Given - Provider: Cherelle Loaiza RN)2032 (Given - Provider: Db Monsalve)220 (Not Given - Provider: Db Monsalve - Reason: Contraindicated - Comment: given earlier per patient request) 0543 (Given - Provider: Db Monsalve)143 (Given - Provider: Mavis Gamboa RN)2034 (Given - Provider: Thor Bobo RN)220 (Canceled Entry - Provider: Thor Bobo RN - Reason: See comment - Comment: PT REQUESTED EARLY) 516 (Given - Provider: Thor Bobo RN) lamoTRIgine (LaMICtal) tablet 200 mg 200 mg, Oral, DAILY, First dose on Fri07/13/17 at 1800, Until Discontinued, Routine 2032 (Given - Provider: Db Monsalve)2199 (Not Given - Provider: Db Monsalve - Reason: Contraindicated - Comment: given earlier per patient request) 2030 (Given - Provider: Thor Bobo RN)2199 (Canceled Entry - Provider: Thor Bobo RN - Reason: See comment - Comment: PT REQUESTED EARLY) lisinopril (PRINIVIL;ZESTRIL) tablet 2.5 mg 2.5 mg, Oral, DAILY, First dose on Fri07/14/17 at 0900, Until Discontinued, Routine 0910 (Given - Provider: Rachana Macias RN) 0821 (Given - Provider: Mavis Gamboa RN) 0833 (Given - Provider: Mavis Gamboa RN) LORazepam (ATIVAN) tablet 0.5 mg (COMPLETED) 0.5 mg, Oral, ONCE, 1 dose, On Fri07/14/17 at 0045, Routine 0117 (Given - Provider: Maria G Carrasco RN) magnesium sulfate 2 g in sterile water 50 mL (COMPLETED) 2 g, Intravenous, ONCE, 1 dose, On Fri07/14/17 at 0745, Administer over 120 Minutes 0808 (New Bag - Provider: Rachana Macias, RN)1008 (Stopped - Provider: Cherelle Loaiza RN) melatonin tablet 3 mg (COMPLETED) 3 mg, Oral, ONCE, 1 dose, On 07/14/17 at 0045, Routine 0117 (Given - Provider: Maria G Carrasco, FLAVIA) meTOPROLOL tartrate (LOPRESSOR) tablet 25 mg 25 mg, Oral, EVERY 12 HOURS SCHEDULED (2 times per day), First dose on 07/13/17 at 2100, Until Discontinued, Routine 09 (Given - Provider: Rachana Macias, RN)2024 (Given - Provider: Db Monsalve) 08 (Given - Provider: Mavis Gamboa, FLAVIA)2025 (Given - Provider: Thor Bobo RN) 0834 (Given - Provider: Mavis Gamboa RN) pantoprazole (PROTONIX) tablet 40 mg 40 mg, Oral, DAILY, First dose on 07/13/17 at 1630, Until Discontinued, DO NOT CRUSH OR OPEN 0804 (Given - Provider: Rachana Macias RN) 0822 (Given - Provider: Mavis Gamboa, FLAVIA) 0834 (Given - Provider: Mavis Gamboa RN) ziprasidone (GEODON) capsule 20 mg 20 mg, Oral, NIGHTLY, First dose on 07/13/17 at 2100, Until Discontinued, May cause prolongation of QT interval. Take with food., Routine 2025 (Not Given - Provider: Db Monsalve - Reason: Medication not available) 2025 (Given - Provider: Thor Bobo RN) PRN Medication Order 07/14/2017 07/15/2017 07/16/2017 nitroGLYcerin (NITROSTAT) SL tablet 0.4 mg 0.4 mg, Sublingual, EVERY 5 MIN PRN, Starting on 07/13/17 at 1450, Until Fri07/16/17 at 1352, Chest pain, May repeat every 5 minutes for a total of three doses. Notify provider if chest pain not relieved with nitroglycerin. Do not administer nitroglycerin if the patinet has received or taken phosphodiesterase (PDE-5) inhibitors such as sildenafil, tadalafil or vardenafil within the last 24 to 72 hours., Routine documented in this encounter Care Teams Ironworker Foreman Relationship Specialty Start Date End Date Severo Bwoman MD [address] [place] [id number] PCP - General General Internal Medicine 04/21/1707/11 documented as of this encounter
--- OUTSIDE RECORDS SUMMARY | 2024-06-04 20:48 | XMS_ITS | Encounter Summary ---
Author Organization [facility] [place] [address] Care Team Providers Care Dough Machine Operator Name Role Phone Bin Bowman MD Primary Care Provider Reason for Visit * Reason Comments Medication Refill Encounter Details Date Type Department Care Team (Late st Contact Info) Description 12/03/2017 Ref[place] [phone] Hawk Coker DO [facility] DR HEMATOLOGY/[place] [address] Social History Tobacco Use Types Packs/Day Years [...] 2:00 PM EDT Office [place] [phone] Joan Castro MD [facility] [place] [address] 06/11/2024 1:03 PM EDT Hospital Encounter [place] [address] Rachel Carrasco MD [facility] [place] [address] 06/11/2024 1:03 PM EDT - 06/11/2024 1:58 PM EDT Surgery [place] [phone] Rachel Carrasco MD [facility] [place] [address] CYSTO, REMOVAL OF STENT, FOREIGN BODY OR CALCULUS, SIMPLE (WRVU 2.81) 06/23/2024 10:00 AM EDT Office Visit Cardiology at [address] [place] [address] Mo Horne MD [facility] [place] [address] Scheduled Procedures Name Priority Associated Diagnoses Date/Ti me CYSTO, REMOVAL OF STENT, FOR EIGN BODY OR CALCULUS, SIMPLE (WRVU 2.81) NEPHROLITHIASIS 06/11/2024 1:03 PM EDT documented as of this encounter Visit Diagnoses Not on filedocumented in this encounter Care Teams Dough Machine Operator Relationship Specialty Start Date End Date Bin Bowman MD [address] [place] [phone] PCP - General General Internal Medicine 04/21/1707/11 documented as of this encounter
--- OUTSIDE RECORDS SUMMARY | 2024-06-04 20:48 | XMS_ITS | Encounter Summary ---
Author Organization [facility] Address [facility] [place] [address] Care Team Providers Care Clarifier Name Role Phone Bin Bowman MD Primary Care Provider Reason for Referral * Consultation (Routine) - Closed Specialty Diagnoses / Procedures Referred By Zeyad mishra Referred To Contact General Surgery Diagnoses Upper abdominal pain Breonna Amborcio APRN [address] [place] [address] Colt Hewitt MD [facility] [place] [address] Referral ID Status Reason Start Date Expiration Date V isits Requested Visits Authorized [id number] Closed Consult, Test & Treat 02/20/2018 02/20/2019 1 1 Encounter Details Date Type Department Care Team (Late st Contact Info) Description 02/20/2018 Orders [place] [address] Breonna Ambrocio APRN [address] [place] [address] Upper abdominal pain Social History Tobacco Use Types Packs/Day [...] 2:00 PM EDT Office [place] [phone] Joan Castro MD [facility] [place] [address] 06/11/2024 1:03 PM EDT Hospital Encounter [place] [phone] Rachel Carrasco MD [facility] [place] [address] 06/11/2024 1:03 PM EDT - 06/11/2024 1:58 PM EDT Surgery [place] [phone] Rachel Carrasco MD [facility] [place] [address] CYSTO, REMOVAL OF STENT, FOREIGN BODY OR CALCULUS, SIMPLE (WRVU 2.81) 06/23/2024 10:00 AM EDT Office Visit Cardiology at [address] [place] [address] Mo Horne MD [facility] [place] [address] Scheduled Procedures Name Priority Associated Diagnoses Date/Ti me CYSTO, REMOVAL OF STENT, FOR EIGN BODY OR CALCULUS, SIMPLE (WRVU 2.81) NEPHROLITHIASIS 06/11/2024 1:03 PM EDT documented as of this encounter Procedures Procedure Name Priority Date/Time Associated Diagnosis Comments AMB REFERRAL TO GENERAL SURGERY Routine 03/18/2018 9:00 AM EDT Upper abdominal pain documented in this encounter Results * Referral to General Surgery (03/18/2018 9:00 AM EDT) Breonna Liarturolance ASSISTANT SURVEYOR OUTPATIENT REFER RAL ORDERABLES documented in this encounter Visit Diagnoses Diagnosis Upper abdominal pain Abdominal pain, other specified site documented in this encounter Care Teams Clarifier Relationship Specialty Start Date End Date Bin Bowman MD [address] [address] PCP - General General Internal Medicine 04/21/1707/11 documented as of this encounter
--- OUTSIDE RECORDS SUMMARY | 2024-06-04 20:48 | XMS_ITS | Encounter Summary ---
Author Organization [facility] [place] [address] Care Team Providers Care Company Driver Name Role Phone Bin Bowman MD Primary Care Provider [phone] Reason for Visit * Reason Comments Medication Refill Encounter Details Date Type Department Care Team (Late st Contact Info) Description 12/30/2017 Refill [place] [phone] Hawk Coker DO [facility] DR HEMATOLOGY/[place] [address] Social History Tobacco Use Types Packs/Day Years [...] 2:00 PM EDT Office Visit [place] [phone] Joan Castro MD [facility] [place] [address] 06/11/2024 1:03 PM EDT Hospital Encounter [place] [address] Rachel Carrasco MD [facility] [place] [address] 06/11/2024 1:03 PM EDT - 06/11/2024 1:58 PM EDT Surgery [place] [phone] Rachel Carrasco MD [facility] [place] [address] CYSTO, REMOVAL OF STENT, FOREIGN BODY OR CALCULUS, SIMPLE (WRVU 2.81) 06/23/2024 10:00 AM EDT Office Visit Cardiology at [address] [place] [address] Mo Horne MD [facility] [address] Scheduled Procedures Name Priority Associated Diagnoses Date/Ti me CYSTO, REMOVAL OF STENT, FOR EIGN BODY OR CALCULUS, SIMPLE (WRVU 2.81) NEPHROLITHIASIS 06/11/2024 1:03 PM EDT documented as of this encounter Visit Diagnoses Not on filedocumented in this encounter Care Teams Company Driver Relationship Specialty Start Date End Date Bin Bowman MD [address] [place] [phone] PCP - General General Internal Medicine 04/21/1707/11 documented as of this encounter
--- OUTSIDE RECORDS SUMMARY | 2024-06-04 20:48 | XMS_ITS | Encounter Summary ---
Author Organization [facility] [address] Care Team Providers Care Mattress Specialist Name Role Phone Bin Bowman MD Primary Care Provider [phone] Reason for Visit * Reason Comments Medication Refill Encounter Details Date Type Department Care Team (Late st Contact Info) Description 11/01/2017 [place] [phone] Hawk Coker DO [facility] DR HEMATOLOGY/[place] [address] Social History Tobacco Use Types Packs/Day Years [...] 2:00 PM EDT Office [place] [phone] Joan Castro MD [facility] [place] [address] 06/11/2024 1:03 PM EDT Hospital Encounter [place] [address] Rachel Carrasco MD [facility] [place] [address] 06/11/2024 1:03 PM EDT - 06/11/2024 1:58 PM EDT Surgery [place] [phone] Rachel Carrasco MD [facility] [place] [address] CYSTO, REMOVAL OF STENT, FOREIGN BODY OR CALCULUS, SIMPLE (WRVU 2.81) 06/23/2024 10:00 AM EDT Office Visit Cardiology at [address] [place] [address] Mo Horne MD [facility] [place] [address] Scheduled Procedures Name Priority Associated Diagnoses Date/Ti me CYSTO, REMOVAL OF STENT, FOR EIGN BODY OR CALCULUS, SIMPLE (WRVU 2.81) NEPHROLITHIASIS 06/11/2024 1:03 PM EDT documented as of this encounter Visit Diagnoses Not on filedocumented in this encounter Care Teams Mattress Specialist Relationship Specialty Start Date End Date Bin Bowman MD [address] [place] [phone] PCP - General General Internal Medicine 04/21/1707/11 documented as of this encounter
--- OUTSIDE RECORDS SUMMARY | 2024-06-04 20:48 | XMS_ITS | Encounter Summary ---
Author Organization [facility] Address [facility] [place] [address] Care Team Providers Care Screening Unit Registered Nurse Name Role Phone Bin Bowman MD Primary Care Provider Encounter Details Date Type Department Care Team (Late st Contact Info) Description 07/18/2017 [place] [address] Nargis Santillan MD [facility] [place] [address] Social History Tobacco Use Types Packs/Day Years [...] encounter Miscellaneous Notes * Telephone Encounter - Nargis Santillan MD - 07/18/2017 9:55 PM EDT Telephone Triage Note Initial Contact Date: 07/18/2017 Initial contact time: 21:50 Referring Provider: Dr. Merry Osuna Patient Location: [facility] ED Presenting Symptoms per OSH: Fire in the belly Patient presents to ED with complaint of abdominal discomfort. This is apparently chronic for him but in the setting of his recent cardiac event (infero-posterior STEMI s/p lytics followed by PCI to OM1) he wanted to be evaluated to make sure it wasn't cardiac. No other associated symptoms. He repor tori to the provider there fleeting (seconds) sharp chest pains that he reports have bee ongoing even prior to his discharge from here on Fri07/16/17. Provider does not feel his clinical picture is consistent with a cardiac etiology, however, patientdoes have a positive troponin by their system and she wants to know what his discharge troponin was(it was not included in our DC summary apparently) Pertinent Diagnostic Findings: Vitals: Reportedly stable/normal EKG : No elevations, subtle depressions V2-V4 per outside providers read (not provided for my review) Troponin @ 4.8 (troponin I) Plan: I shared the results that the provider requested - the patient's troponin prior to discharge from was 5.83 (troponin T). EKG on day of discharge showed subtle ST-depressions in V2, V3 but not V4 (although this may reflect lead placement). I discussed with the provider that although our troponin assays are different scales (T versus I) that with one point we can not tell whether he is steadily coming down or whether he came down and is now going back up. She felt his clinical syndrome was notconsistent with a cardiac etiology and transfer was not requested. documented in this encounter Plan of Treatment Upcoming Encounters Date Type Department Care Team (Latest Contact Info) Description 06/07/2024 2:00 PM EDT Office [place] [phone] Joan Castro MD [facility] [place] [address] 06/11/2024 1:03 PM EDT Hospital Encounter [place] [phone] Rachel Carrasco MD [facility] [place] [address] 06/11/2024 1:03 PM EDT - 06/11/2024 1:58 PM EDT Surgery [place] [address] Rachel Carrasco MD [facility] [place] [address] CYSTO, REMOVAL OF STENT, FOREIGN BODY OR CALCULUS, SIMPLE (WRVU 2.81) 06/23/2024 10:00 AM EDT Office Visit Cardiology at [address] [place] [address] Mo Horne MD [facility] [place] [address] Scheduled Procedures Name Priority Associated Diagnoses Date/Ti me CYSTO, REMOVAL OF STENT, FOR EIGN BODY OR CALCULUS, SIMPLE (WRVU 2.81) NEPHROLITHIASIS 06/11/2024 1:03 PM EDT documented as of this encounter Visit Diagnoses Not on filedocumented in this encounter Care Teams Screening Unit Registered Nurse Relationship Specialty Start Date End Date Bin Bowman MD [address] [place] [id number] PCP - General General Internal Medicine 04/21/1707/11 documented as of this encounter
--- OUTSIDE RECORDS SUMMARY | 2024-06-04 20:48 | XMS_ITS | Encounter Summary ---
Author Organization [facility] Address [facility] [place] [address] Care Team Providers Care Manager Commercial Real Estate Name Role Phone Bin Bowman MD Primary Care Provider [phone] Encounter Details Date Type Department Care Team (Late st Contact Info) Description 07/16/2017 [place] [address] Abhi Melendez MD [facility] [place] [address] Social History Tobacco Use Types Packs/Day Years [...] encounter Miscellaneous Notes * Telephone Encounter - Abhi Melendez - 07/16/2017 11:05 PM EDT Called by patient's to confirm medication list. List discussed and accurate medication list confirmed. No further questions per . Patient is taking medications as prescribed; most importantly has picked up plavix and will start as instructed. ?? documented in this encounter Plan of Treatment Upcoming Encounters Date Type Department Care Team (Latest Contact Info) Description 06/07/2024 2:00 PM EDT Office [place] [phone] Joan Castro MD [facility] [place] [address] 06/11/2024 1:03 PM EDT Hospital Encounter Main [place] [phone] Rachel Carrasco MD [facility] [place] [address] 06/11/2024 1:03 PM EDT - 06/11/2024 1:58 PM EDT Surgery Main Operating Room [place] [phone] Rachel Carrasco MD [facility] [place] [address] CYSTO, REMOVAL OF STENT, FOREIGN BODY OR CALCULUS, SIMPLE (WRVU 2.81) 06/23/2024 10:00 AM EDT Office Visit Cardiology at [address] [address] Mo Horne MD [facility] [place] [address] Scheduled Procedures Name Priority Associated Diagnoses Date/Ti me CYSTO, REMOVAL OF STENT, FOR EIGN BODY OR CALCULUS, SIMPLE (WRVU 2.81) NEPHROLITHIASIS 06/11/2024 1:03 PM EDT documented as of this encounter Visit Diagnoses Not on filedocumented in this encounter Care Teams Manager Commercial Real Estate Relationship Specialty Start Date End Date Bin Bowman MD [address] [place] [phone] PCP - General General Internal Medicine 04/21/1707/11 documented as of this encounter
--- OUTSIDE RECORDS SUMMARY | 2024-06-04 20:48 | XMS_ITS | Encounter Summary ---
Author Organization [facility] Address [facility] [place] [address] Care Team Providers Care Radioisotope Technologist Name Role Phone Bin Bowman MD Primary Care Provider Encounter Details Date Type Department Care Team (Latest Contact Info) Description 01/01/2018 4:00 PM EST Tech [place] [address] Ivonne Willis MD [facility] [place] [address] Gastroesophageal reflux disease, esophagitis presence not specified [...] as of this encounter Progress Notes * Ivonne Willis MD - 01/01/2018 4:00 PM EST [id number] WIRELESS pH CAPSULE STUDY AFTER UPPER ENDOSCOPY Rolo Aguilar [address] [place] [address] : 1970 STUDY DATE: 12/29/2017 PROVIDER: Ivonne Willis MD ([id number]) INDICATION GERD Note that this study was performed on of medications used to treat acid reflux. METHODS After upper endoscopy where landmarks were visualized and measured, in a supervised setting, and after informed consent, a Farmer pH telemetry capsule was deployed orally and attached to the esophageal wall at 5 cm above the upper border of the LES. ??No complications were noted during this procedure. FINDINGS Visual inspection of the study shows fluctuations in pH values throughout the study consistent witha technically adequate study. DAY ONE Upright: 17 hours, 37 minutes Supine: 6 hours, 23 minutes Total Number of Reflux Episodes: 1 ? Upright Position: 1 ? Supine Position: 0 ? Reflux Episodes Longer than Five Minutes: 0 ? Upright: 0 ? Supine: ??0 ? Duration of Longest Episode: 0 ??minute(s)? Total Distal Esophageal Acid Exposure Time: 0 hour, 0??minute(s). Percent of Total Recording Time: 0.1% Percent of Upright Recording Time: 0.1% Percent of Supine Recording Time: 0% Calculated DeMeester Score (normal values are up to 14.72) Day One Calculated DeMeester Score: 0.4 DAY TWO Upright: 21 hours, 20 minutes Supine: 2 hours, 40 minutes Total Number of Reflux Episodes: 2 ? Upright Position: 2 ? Supine Position: 0 ? Reflux Episodes Longer than Five Minutes: 0 ? Upright: 0 ? Supine: ??0 ? Duration of Longest Episode: 0 ??minute(s) ? Total Distal Esophageal Acid Exposure Time: 0 hour, 0??minute(s). Percent of Total Recording Time: 0.1% Percent of Upright Recording Time: 0.1% Percent of Supine Recording Time: 0% Calculated DeMeester Score (normal values are up to 14.72) Day One Calculated DeMeester Score: 0.5 Dedin-Mcmaj-Bxld (Total) Fraction of Time with pH Less Than 4%: 0.1 Tsxor-Uizcf-Ztct DeMeester Score (Total): 0.5 Day One Symptoms Association Probability (SAP) for Heartburn: 80.1 Chest pain: 0 Day Two SAP for Heartburn: 0 Regurgitation: 0 Ayryu-Bgyim-Cgwo SAP for Heartburn: N/A Chest pain: 0 Regurgitation: 0 IMPRESSION This study was performed on acid suppression medication (Nexium 40 mg QD). This study was negative for pathologic acid reflux. The SAP was not significant for heartburn, chest pain, or regurgitation indicating these symptoms were not related to acid reflux. The SAP for heartburn at 48 hours was notaccurately calculated due to the low number of acid events, but was not significant for day one or day two, which would indicate the 48 hour SAP would also not be significant. NORMAL VALUES FOR WIRELESS pH CAPSULE STUDY 1. Total number of reflux episodes = less than 50. 2. Number of episodes longer than 5 minutes = less than 3. 3. Acid exposure time Total = less than 5.3% Upright = less than 6.3% Supine = less than 1.2%. SAP expresses the likelihood that a specific symptom, i.e., heartburn, regurgitation, chest pain, is associated with acid reflux. ??By convention, SAP values greater than 95% are positive. Ivonne Willis MD Section of Gastroenterology and Hepatology [facility] [place] [address] V: [phone] F: [phone] CC/EC: PCP documented in this encounter Plan of Treatment Upcoming Encounters Date Type Department Care Team (Latest Contact Info) Description 06/07/2024 2:00 PM EDT Office [place] [address] Joan Castro MD [facility] [place] [address] 06/11/2024 1:03 PM EDT Hospital Encounter [place] [address] Rachel Carrasco MD [facility] [place] [address] 06/11/2024 1:03 PM EDT - 06/11/2024 1:58 PM EDT Surgery [place] [address] Rachel Carrasco MD [facility] [place] [address] CYSTO, REMOVAL OF STENT, FOREIGN BODY OR CALCULUS, SIMPLE (WRVU 2.81) 06/23/2024 10:00 AM EDT Office Visit Cardiology at [address] [place] [phone] Mo Horne MD [facility] [place] [address] Scheduled Procedures Name Priority Associated Diagnoses Date/Ti me CYSTO, REMOVAL OF STENT, FOR EIGN BODY OR CALCULUS, SIMPLE (WRVU 2.81) NEPHROLITHIASIS 06/11/2024 1:03 PM EDT documented as of this encounter Visit Diagnoses Diagnosis Gastroesophageal reflux disease, esophagitis presence not specified documented in this encounter Care Teams Radioisotope Technologist Relationship Specialty Start Date End Date Bin Bowman MD [address] [place] [phone] PCP - General General Internal Medicine 04/21/1707/11 documented as of this encounter
--- OUTSIDE RECORDS SUMMARY | 2024-06-04 20:48 | XMS_ITS | Encounter Summary ---
Author Organization [facility] [place] [address] Care Team Providers Care Communications Electrician Supervisor Name Role Phone Bin Bowman MD Primary Care Provider Reason for Visit * Reason Comments GI Problem Encounter Details Date Type Department Care Team (Latest Contact Info) Description 01/20/2018 12:00 PM EDT Office Visit [place] [address] Breonna Ambrocio, MASTICATOR [address] [place] [address] Gastroesophageal reflux disease without esophagitis; Dyspepsia; Dysphagia, unspecified type; Bloating Social History Tobacco Use Types Packs/Day Years [...] - Inhaled Oxygen Concentration - - Weight 142.9 kg (315 lb) 01/20/2018 10:28 AM EDT Height 167.6 cm (5' 6) 01/20/2018 10:28 AM EDT Body Mass Index 50.84 01/20/2018 10:28 AM EDT documented in this encounter Patient Instructions * Patient Instructions* Breonna Ambrocio APRN - 01/20/2018 12:00 PM EDT 1. At the onset of symptoms: Take Lorazepam 0.5mg and ondansetron ODT 4mg. May repeat ondansetron x1 if no benefit after 30 minutes Then: Lorazepam 0.5mg every 8 hours as needed and ondansetron ODT 4mg every 8 hours as needed. May repeat ondansetron dose x 1 if no benefit after 30 minutes 2. Increase esomeprazole 40mg twice daily 30-60 minutes prior to breakfast and dinner. 3. Follow up as needed documented in this encounter Progress Notes * Breonna Ambrocio APRN - 01/20/2018 12:00 PM EDT Instructional Specialist: Breonna Ambrocio APRN PCP: Bin Bowman MD Requesting Provider: Bin Bowman MD REASON FOR VISIT This is a keren 47 y.o. male with a history significant for bipolar disorder who returns to me today in follow up. GI PROBLEM LIST 1. PAVAN --EGD 12/29/17; ??- Normal esophagus s/p mid and distal ?esophageal biopsies. ?- Normal stomach. Biopsied. ?- Normal examined duodenum. Biopsied. ?- Following endoscopy, Farmer pH probe ?placed Pathology; negative --Farmer pH on once daily PPI 01/01/18; This study was performed on acid suppression medication (Nexium 40 mg QD). This study was negative for pathologic acid reflux. The SAP was not significant for heartburn, chest pain, or regurgitation indicating these symptoms were not related to acid reflux. TheSAP for heartburn at 48 hours was not accurately calculated due to the low number of acid events, but was not significant for day one or day two, which would indicate the 48 hour SAP would also not be significant. --MEDICATION TRIALS *Pantoprazole 40mg once daily; not beneficial *Esomeprazole 40mg once daily; beneficial *FD Diana --LIFESTYLE/DIET *Weight loss *Mediterranean diet *GERD lifestyle modifications 2. DIARRHEA 3. ELEVATED LFTs 4. NAUSEA Time Spent With Patient 28 minutes of this 31 minute visit were spent in uzyb-oa-wdsu discussion and counseling the patientas detailed per below. INTERVAL HISTORY- 01/20/18 Has been tapering off [...] Was using carafate for a little while. [place] this helped. Had an EGD in September 2016. Was told everything is normal, although patient states he feels he would like another EGD done by a reed man and not a general surgeon. Denies dysphagia, odynophagia, globus. Denies regurgitation, nausea, vomiting. Decreased appetite. Early satiety. Post-prandial bloating frequently. Denies chronic NSAID use. No anemia. Abdominal pain related to heartburn and bloating. Denies diarrhea and constipation. No cramping or urgency. No blood or mucus in stool. No anal or rectal pain. Will get chills in the fruit dryer or late at night. 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 [...] helpful 4. Omeprazole; not helpful Physical Exam: There were no vitals filed for this visit. Height: 5'6 Weight: (!) 142.9 kg (315 lb) Body mass index is 50.84 kg/(m^2). GENERAL: Healthy-appearing in no acute distress. Appears [...] 10/07/2017 Lab Results Component Value Date NA 139 07/16/2017 K 4.0 07/16/2017 CL 101 07/16/2017 CO2 26 07/16/2017 BUN 11 07/16/2017 CREATININE 1.05 07/16/2017 GLUCOSE 107 07/16/2017 CALCIUM 9.0 07/16/2017 ESTGFR >60 07/16/2017 Lab Results Component Value Date ALT 35 07/13/2017 AST 193 (H) 07/13/2017 ALKPHOS 44 07/13/2017 BILITOT 0.6 07/13/2017 ALBUMIN 3.0 (L) 07/13/2017 PROT 6.0 (L) 07/13/2017 ASSESSMENT This is a keren 46 year old man with a history of bipolar disorder who returns to me today in follow up for PAVAN. Since our last visit, he had a normal EGD and Farmer pH on once daily PPI. Has been developing increase in dyspeptic symptoms which I feel may be associated with tapering off geodon. Timing of symptoms correlates with taper. Recommend that he continues the taper. Recommend increasing esomeprazole to twice daily, since he finds this helpful. Recommend ondansetron with lorazepam for nausea. We discussed the potential interactions between geodon and ondansetron including QT interval prolongation. Less concerned about this interaction since he is tapering off geodon. If he continues to have dyspeptic symptoms after tapering off geodon, consider low- FODMAP diet. Consider TCA. Consider FD Diana. Consider gastroparesis. Consider GES. Consider biliary etiology. He has an abdominal ultrasound ordered. We discussed the pathophysiology of reflux symptoms including acid reflux, non-acid reflux, and visceral hypersensitivity. PPI therapy was reviewed. Teaching was provided with regard to the timing of medication administration and side effects. We reviewed GERD diet and lifestyle modifications. He occasionally has dysphagia symptoms. Possible visceral hypersensitivity component. Wediscussed the utility of HREM. We will defer at this time. He currently has nitro available. He maytry taking this the next time he has symptoms. Consider utility of HREM. 1. DYSPHAGIA- Unchanged Ddx: EMMY, esophageal dysmotility, jackhammer esophagus, nutcracker esophagus 2. PAVAN with overlapping dyspepsia- Unchanged Ddx: bile acid reflux, visceral hypersensitivity 3. DIARRHEA- Improved 4. BLOATING- Improved PLAN 1. At the onset of symptoms: Take Lorazepam 0.5mg and ondansetron ODT 4mg. May repeat ondansetron x1 if no benefit after 30 minutes Then: Lorazepam 0.5mg every 8 hours as needed and ondansetron ODT 4mg every 8 hours as needed. May repeat ondansetron dose x 1 if no benefit after 30 minutes 2. Increase esomeprazole to 40mg twice daily 30-60 minutes prior to breakfast and dinner. 3. Follow up as needed Patient agrees with the above plan. I did my best to answer their questions. Signed, Breonna Ambrocio APRN 01/20/18 1:27 PM Section of Gastroenterology & Hepatology [facility] ?? documented in this encounter Plan of Treatment Upcoming Encounters Date Type Department Care Team (Latest Contact Info) Description 06/07/2024 2:00 PM EDT Office Visit [place] [address] Joan Castro MD [facility] [place] [address] 06/11/2024 1:03 PM EDT Hospital Encounter Main Operating Room [place] [phone] Rachel Carrasco MD [facility] [place] [address] 06/11/2024 1:03 PM EDT - 06/11/2024 1:58 PM EDT Surgery Main Operating Room [place] [phone] Rachel Carrasco MD [facility] [place] [address] CYSTO, REMOVAL OF STENT, FOREIGN BODY OR CALCULUS, SIMPLE (WRVU 2.81) 06/23/2024 10:00 AM EDT Office Visit Cardiology at [address] [address] Mo Horne MD [facility] [place] [address] Scheduled Procedures Name Priority Associated Diagnoses Date/Ti me CYSTO, REMOVAL OF STENT, FOR EIGN BODY OR CALCULUS, SIMPLE (WRVU 2.81) NEPHROLITHIASIS 06/11/2024 1:03 PM EDT documented as of this encounter Visit Diagnoses Diagnosis Gastroesophageal reflux disease without esophagitis Esophageal reflux Dyspepsia Dyspepsia and other specified disorders of function of stomach Dysphagia, unspecified type Bloating Flatulence, eructation, and gas pain documented in this encounter Care Teams Communications Electrician Supervisor Relationship Specialty Start Date End Date Bin Bowman MD [address] [place] [address] PCP - General General Internal Medicine 04/21/1707/11 documented as of this encounter
--- OUTSIDE RECORDS SUMMARY | 2024-06-04 20:48 | XMS_ITS | Encounter Summary ---
Author Organization [facility] [place] [address] Care Team Providers Care Distribution Coordinator Name Role Phone Bin Bowman MD Primary Care Provider Reason for Visit * Reason Comments Medication Refill Encounter Details Date Type Department Care Team (Late st Contact Info) Description 12/02/2017 Ref[place] [address] Hawk Coker DO [facility] DR HEMATOLOGY/[place] [address] Social History Tobacco Use Types Packs/Day Years [...] 2:00 PM EDT Office [place] [phone] Joan Castro MD [facility] DR [place] [address] 06/11/2024 1:03 PM EDT Hospital Encounter [place] [address] Rachel Carrasco MD [facility] [place] [address] 06/11/2024 1:03 PM EDT - 06/11/2024 1:58 PM EDT Surgery [place] [phone] Rachel Carrasco MD [facility] [place] [address] CYSTO, REMOVAL OF STENT, FOREIGN BODY OR CALCULUS, SIMPLE (WRVU 2.81) 06/23/2024 10:00 AM EDT Office Visit Cardiology at [address] [place] [address] Mo Horne MD [facility] [place] [address] Scheduled Procedures Name Priority Associated Diagnoses Date/Ti me CYSTO, REMOVAL OF STENT, FOR EIGN BODY OR CALCULUS, SIMPLE (WRVU 2.81) NEPHROLITHIASIS 06/11/2024 1:03 PM EDT documented as of this encounter Visit Diagnoses Not on filedocumented in this encounter Care Teams Distribution Coordinator Relationship Specialty Start Date End Date Bin Bowman MD [address] [place] [id number] PCP - General General Internal Medicine 04/21/1707/11 documented as of this encounter
--- OUTSIDE RECORDS SUMMARY | 2024-06-04 20:49 | XMS_ITS | Encounter Summary ---
Author Organization [facility] [place] [address] Care Team Providers Care Cylinder Dyer Name Role Phone Severo Bowman MD Primary Care Provider [phone] Reason for Visit * Auth/Cert Specialty Diagnoses / Procedures Referred By Zeyad mishra Referred To Contact Diagnoses STEMI (ST elevation myocardial infarction) STEMI STEMI Procedures CARDIAC CATHETERIZATION Referral ID Status Reason Start Date Expiration Date Visits Re quested Visits Authorized [id number] 1 1 Encounter Details Date Type Department Care Team (Late st Contact Info) Description 07/13/2017 10:54 AM EDT - 07/13/2017 12:36 [place] [address] Neftali White MD [facility] [place] [address] CARDIAC CATHETERIZATION Social History Tobacco Use Types [...] Rolo Aguilar Patient Age: 46 y.o. Language: Canadian Race: White Ethnicity: Not nor Admit date: 07/13/2017 Discharge date and time: 07/16/2017 Attending Physician: Ky Amato MD Discharge Physician: Hawk Coker DO (Resident) ID: Mr. Aguilar is a 46yo w/ pMHx Of HTN, HLD, GERD, morbid obesity, depression, bipolar, who presents as transfer from [facility] for chest pain and inferior [...] medications as appropriate - Cardiac rehab in [facility] Discharge Diagnoses (Hospital Problems) and Secondary [...] depression, bipolar, who presents as transfer from [facility] for chest pain and inferior [...] called the ambulance, who transported him to [facility], where he was loaded plavix, started on heparin gtt, and tNK was already loaded with ASA at home). He also received 1L of NS for BP in the 90/50s. It took an 1 to 1.5 hr to get to [facility]. ?? In lab clerk, LM was normal, RCA was normal, LAD was normal, LCD 85% long segmental stenosis of ELEANOR.S/p EMMY in OM1. ?? Patient denies recent illnesses, diarrhea, constipation, coughs, sick contacts Hospital Course: Rolo Aguilar was admitted to the Medicine Service on 07/13/2017 in stable condition. The following issues were addressed during this admission and he was discharged on 07/16/2017 ACS On admission to [facility], the patient was taken emergently to the lab clerk. Prior to discharge he had aCXR showing mild pulmonary edema. This was from acute diastolic heart failure. His cath showed one vessel coronary artery disease of the LCX, he received EMMY to his proximal OM1 lesion. On transfer to the [facility], the patient was chest pain free [...] was initially held in the setting ofacute [place]. This was discussed at length with the [...] Lab Data: DISCHARGE BASIC LABS Recent Labs 07/16/17 0516 07/15/17 0437 07/14/17 0320 WBC 8.6 9.5 11.5* HGB 11.6* 12.3* 13.5* HCT 34.5* 36.5* 38.8* PLATELET 128* 145 197 Recent Labs 07/16/17 0516 07/15/17 0437 07/14/17 0320 NA 139 137 139 K 4.0 [...] ventricular segmental wall motion abnormalities present at [facility] inferolateral wall, as coded in the diagram [...] appointments: During 8am-5pm Friday through Friday call [phone] to speak with a nurse in the cardiology clinic All other times call [phone] and ask to speak to the dip tanker production administrator. Activity level: - No heavy lifting (more [...] 3:00 PM MOTILITY LAB [facility] 09/19/2017 9:30 AM Breonna Ambrocio, DOCTOR OF NATUROPATHIC MEDICINE [facility] Cardiology Follow-up: Dr. Montes -- August 01, 1:30PM PCP Follow-up: JONATAN Hay -- July 28, 11:00AM -- [phone] Your Inpatient Doctor(s) at [facility]: Ky Amato MD - Attending physician Hawk Coker DO - Resident physician Maryuri Sanchez MD - Clinical Asst physician Your Primary Care Provider: Severo Bowman MD [address] / [place] [place] [address] For questions regarding issues relating to your hospitalization on the Hospital Medicine Service, please contact your inpatient physician through the [facility] Electrician Apprentice [phone]. Issues after hours and on weekends will be handled by the Hospitalist staff on-call. General Instructions None Future Appointments and Orders Future Appointments Provider Department Dept Phone 09/10/2017 3:00 PM MOTILITY [facility] [place] [phone] 09/19/2017 9:30 AM Breonna Ambrocio APRN [facility] [place] [phone] Future Orders Complete By Expires Referral to Cardiac Rehab [[id number] Custom] As directed Process Instructions: If no progress note charted, please enter Clinical details in comments. Scheduling Instructions: Questions: My question or request is: STEMI. Cardiac rehab at [facility] Provider Contact Information: Severo Bowman MD [address] / [place] [address] Discharge References/Attachments: Discharge References/Attachments None documented in this encounter Discharge Instructions * Patient Instructions* Hawk Coker, - 07/15/2017 1:15 PM EDT Patient Instructions [...] appointments: During 8am-5pm Friday through Friday call [phone] to speak with a nurse in the cardiology clinic All other times call [phone] and ask to speak to the dip tanker production administrator. Activity level: - No heavy lifting (more [...] 3:00 PM MOTILITY LAB [facility] 09/19/2017 9:30 AM Breonna Ambrocio, DOCTOR OF NATUROPATHIC MEDICINE [facility] Cardiology Follow-up: Dr. Montes -- August 01, 1:30PM PCP Follow-up: JONATAN Hay -- July 28, 11:00AM -- [phone] Your Inpatient Doctor(s) at [facility]: Ky Amato MD - Attending physician Hawk Coker DO - Resident physician Maryuri Sanchez MD - Clinical Asst physician Your Primary Care Provider: Severo Bowman MD [address] / [place] [address] For questions regarding issues relating to your hospitalization on the Hospital Medicine Service, please contact your inpatient physician through the [facility] Electrician Apprentice [phone]. Issues after hours and on weekends will [...] by cardiac rehab. Twyla Chaudhary, PT Pager [phone] * Ky Amato MD - 07/15/2017 6:26 [...] an inferoposterior ST elevation myocardial infarction to [facility]. He was treated with thrombolytic drugs and [...] no lesions, no petechiae Labs: Recent Labs 07/15/1743607/14/17 0320 07/13/17 1500 WBC 9.5 11.5* 10.2* [...] OM1 and hemodynamically stable. Received tNK at [facility] prior to transfer. Hemodynamically stable so [...] MD PGY1 Internal Medicine Cardiology S1 Pager [phone] Attending Addendum: The patient was seen and examined in conjunction with the resident on rounds. My history, physical exam findings, assessment, and plan are reflected in that note. Lab and relevant imaging data was reviewed and the plan was communicated with the patient and available family. Doing well and approaching d/c. Advance GDT for CAD meds. Ky Amato MD, [facility] Attending Leg Assembler Pager [phone] * Veena Marx - 07/13/2017 7:15 PM [...] c/d/i, no tenderness to palpation. Abd: No Benton's sign. Ext: LE warm with 2+ DP [...] PCP: Severo Bowman MD PCP phone #: [phone] ID/Chief Complaint: 46yo male History of Present Illness: Mr. Aguilar is a 46yo w/ pMHx Of HTN, HLD, GERD, morbid obesity, depression, bipolar, who presents as transfer from [facility] for chest pain and inferior [...] called the ambulance, who transported him to [facility], where he was loaded plavix, started on heparin gtt, and tNK was already loaded with ASA at home). He also received 1L of NS for BP in the 90/50s. It took an 1 to 1.5 hr to get to [facility]. In lab clerk, LM was normal, RCA was normal, LAD was normal, LCD 85% long segmental stenosis of ELEANOR.S/p EMMY in OM1. Patient denies recent illnesses, diarrhea, constipation, coughs, sick contacts PMHx Bipolar HTN ?HLD (last time check 6mo ago was wnl) GERD (scheduled for endoscopy in Sep) SurgHx Tonsillectomy and adenoidectomy at age 5 [...] use Living Situation: Lives with mother in [place], [place]. Sees Dr. Bowman ([facility]), Sindhu Diana ([facility]). In good relationship with . 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 Invalid input(s): [id number] Heme: No results for input(s): LDH, HAPTOGLOBIN, [...] OM1 and hemodynamically stable. Received tNK at [facility] prior to transfer. #Inferior STEMI s/p [...] MD PGY1 Internal Medicine Cardiology S1 Pager [phone] Attending Addendum: The patient was seen and [...] an inferoposterior ST elevation myocardial infarction to [facility]. He was treated with thrombolytic drugs and transferred for immediate catheterization. In the [place], radial access was difficult due to a [...] 3 day hospital course. Ky Amato MD, [facility] Attending Leg Assembler Pager [phone] documented in this encounter Miscellaneous Notes * Plan of Care - Thor Bobo, RN - 07/16/2017 1:11 AM EDT Problem: Skin Integrity Impairment, Risk/Actual (Adult) Goal: Skin Integrity/Wound Healing Patient will demonstrate the desired outcomes by discharge/transition of care. Outcome: Ongoing (Interventions Implemented as Appropriate) 07/16/17 0106 Skin Integrity Impairment, Risk/Actual (Adult) Skin Integrity/Wound Healing making progress toward outcome Problem: Patient Care Overview Goal: Plan of Care Review Outcome: Ongoing (Interventions Implemented as Appropriate) 07/15/17 0141 07/15/171944 Coping/Psychosocial Plan Of Care Reviewed With -- [...] -- -- Score 35 -- -- OTHER Chattejree Fall Risk Med -- -- Positioning Body [...] CPG). 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 He quit smoking 3 years ago. Recently, he made changes in his diet and began walking 3 miles every day. He has lost 40 lbs and is motivated to continueto lose weight and exercise. Reviewed home exercise program with him. He is very interested in participating in cardiac rehab. Participation to an outpatient cardiac rehabilitation program at [facility] was discussed. Patient agrees to [...] lives in basement [address] [place] [address] Social & Family Supports/Community Resources: Autumn Extended Emergency Contact Information Primary Emergency Contact: Autumn Aguilar Address: [address] [place] [address] [place] Mobile Relation: Spouse Secondary Emergency Contact: Lorenza Piedraann Address: [address] [place] [address] [facility] [place] Relation: Sibling Behavioral Health History: History depression, anxiety, and bipolar Substance Use/Abuse: Quit smoking 3 years ago, rare alcohol use, denies illicit drug use Other Pertinent/Service Specific Information: None Health/Prescription Coverage: Payor: [place]ICAID [place] / Plan: [place]ICA[place] PRIMARY CARE PLUS / Product Type: *No Product type* / Secondary Insurance: None Prescription Coverage: see above Preferred Pharmacy: [id number] - [place], [place] - [address] [place] [address] Other: None Primary Care Provider: Severo Bowman MD [phone] Patient/Caregiver Goals of Treatment: Safe dc plan [...] planning. NEGRITA Smith, MS, BSN, RN, Pager [phone] Office of Care Management * Plan of Care - Db Monsalve - 07/15/2017 1:48 AM EDT Problem: Skin Integrity Impairment, Risk/Actual (Adult) Goal: Skin Integrity/Wound Healing Patient will demonstrate the desired outcomes by discharge/transition of care. Outcome: Ongoing (Interventions Implemented as Appropriate) 07/15/17 014 Skin Integrity Impairment, Risk/Actual (Adult) Skin Integrity/Wound [...] (Interventions Implemented as Appropriate) 07/14/17 1035 07/14/17 230 Safety Interventions Isolation Precautions standard precautions maintained -- Infection Prevention environmental surveillance performed -- Coping Strategies Supportive Measures -- active listening utilized Goal: Discharge Needs Assessment Outcome: Ongoing (Interventions Implemented as Appropriate) 07/15/17 014 Discharge Needs Assessment Concerns To Be Addressed [...] Ongoing (Interventions Implemented as Appropriate) 07/15/17 014 Interdisciplinary Rounds/Family Conf Participants patient;nursing Problem: Cardiac [...] OUTCOME EVALUATION NOTE: OUTCOME SUMMARY: Transferred from [facility], A&Ox4, denies pain or SOB. Right [...] EDT Office Visit Gastroenterology at [place] [phone] Joan Castro MD [facility] [place] [address] 06/11/2024 1:03 PM EDT Hospital Encounter Main Operating Room [place] [phone] Rachel Carrasco MD [facility] [place] [address] 06/11/2024 1:03 PM EDT - 06/11/2024 1:58 PM EDT Surgery Main Operating Room [place] [phone] Rachel Carrasco MD [facility] [place] [address] CYSTO, REMOVAL OF STENT, FOREIGN BODY OR CALCULUS, SIMPLE (WRVU 2.81) 06/23/2024 10:00 AM EDT Office Visit Cardiology at [address] [place] [address] Mo Horne MD [facility] [place] [address] Scheduled Procedures Name Priority Associated Diagnoses Date/Ti [...] 5:16 AM EDT DIFFERENTIAL, AUTOMATED Routine 07/16/20 17 5:16 AM EDT CBC (WITH DIFF) Routine [...] 07/14/20 17 3:20 AM EDT CARDIAC ENZYMES ([facility]) Routine 07/14/2017 3:20 AM EDT CBC (WITH DIFF) Routine 07/14/2017 3:20 AM EDT TSH Routine 07/14/2017 3:20 AM EDT MAGNESIUM Routine 07/14/2017 3:20 AM EDT HEMOGLOBIN A1C Routine 07/14/2017 3:20 AM EDT LIPID PANEL (REFLEX DIRECT LDL) Routine 07/14/2017 3:20 AM EDT BASIC METABOLIC PANEL (NON-FASTING) Routine 07/14/2017 3:20 AM EDT DIRECTOR OF SUPPLY CHAIN SCAN 07/14/2017 12:00 AM EDT CARDIAC ENZYMES ([facility]) Routine 07/13/2017 9:10 PM EDT XR CHEST ONE VIEW Routine 07/13/2017 7:5 5 PM EDT POCT GLUCOSE Routine 07/13/2017 7:30 PM EDT EKG 12-LEAD Routine 07/13/2017 3:[address] elevation myocardial infarction (STEMI), unspecified artery POCT GLUCOSE Routine 07/13/2017 3:01 PM EDT HEMOGRAM STAT 07/13/2017 3:00 PM EDT DIFFERENTIAL, AUTOMATED STAT 07/13/20 17 3:00 PM EDT CARDIAC ENZYMES ([facility]) STAT 07/13/2017 3:00 PM EDT APTT Routine 07/13/2017 3:00 PM EDT PROTHROMBIN TIME Routine 07/13/2017 3:00 PM EDT CBC (WITH DIFF) STAT 07/13/2017 3:00 PM EDT COMPREHENSIVE METABOLIC PANEL (NON-FASTING) STAT 07/13/2017 3:00 PM EDT CARDIAC CATHETERIZATION Routine 07/13/20 17 2:[address] elevation myocardial infarction (STEMI), unspecified artery documented in this encounter Results * EKG 12 Lead (07/16/2017 6:45 AM EDT) Pathologist [facility] Ventricular rate 72 BPM MUSE SYSTEM Atrial Rate 72 BPM MUSE SYSTEM P-R Interval 150 ms MUSE SYSTEM QRS Duration 96 ms MUSE SYSTEM Q-T Interval 374 ms MUSE SYSTEM QTC Calculated (Bezet) 409 ms MUSE SYSTEM Calculated P [place] 30 degrees MUSE SYSTEM Calculated R [place] 21 degrees MUSE SYSTEM Calculated T [place] 14 degrees MUSE SYSTEM INTERPRETATION Normal sinus rhythm Inferior-switch inspector ior infarct , age undetermined Abnormal ECG When compared with ECG of 15-JUL-2017 07:31, Inferior-switch inspector ior infarct is now Present Inverted T waves have replaced nonspecific T wave abnormality in Inferior leads Confirmed by MD Jennie, Severiano ([id number]) on 07/16/2017 5:00:13 PM MUSE SYSTEM 07/16/2017 6:45 AM EDT 07/16/2017 5:00 PM EDT Ky Amato MD ECG ORDERABLES MUSE SYSTEM * Differential, Automated (07/16/2017 5:16 AM EDT) Neutrophils % 61.5 % [facility] Neutr Abs (ANC) 5.29 1.70 - 6.10 x10(3)/[facility] Lymphocytes % 28.6 % [facility] Lymphocytes Abs 2.5 0.9 - 3.2 x10(3)/[facility] Monocytes % 7.7 % [facility] Monocyte Abs 0.7 0.3 - 0.9 x10(3)/[facility] Eosinophils % 1.2 % [facility] Eosinophils Abs 0.1 0.0 - 0.4 x10(3)/[facility] Basophils % 0.5 % [facility] Basophils Abs 0.0 0.0 - 0.1 x10(3)/[facility] Immature Gran % 0.50 % [facility] Comment: Immature granulocytes(IG's)percentage and absolute count will include metamyelocytes, myelocytes, and promyelocytes. Blood smears from CBCs yielding IG's will be scanned manually for concordance. If this scan disagrees with the automated IG or if promyelocytes are noted, a manual differential will be performed. Amy Gran Abs 0.04 0.00 - 0.04 x10(3)/[facility]OR[facility] Blood specimen (specimen) 07/16/2017 5:16 AM EDT 07/16/2017 5:31 AM EDT Narrative Resulting Agency Comment Spec In Lab Ky Amato MD HEMATOLOGY ORDERABLE S [facility] [place] [address] * (ABNORMAL) Hemogram (07/16/2017 5:16 AM EDT) WBC 8.6 4.0 - 9.5 x10(3)/[facility] RBC 3.94(L) 4.58 - 5.54 x10(6)/[facility] Hemoglobin 11.6(L) 13.7 - 16.5 gm/dL [facility] Hematocrit 34.5(L) 40.5 - 48.5 % [facility] MCV 87.6 82.9 - 93.1 [facility] MCH 29.4 27.5 - 32.1 pg [facility] MCHC 33.6 32.0 - 35.7 gm/dL [facility] Platelets 128(L) 145 - 357 x10(3)/[facility] RDWSD 43.5 36.0 - 45.0 [facility] RDWCV 13.5 11.4 - 13.8 % [facility] MPV 10.0 7.6 - 12.9 [facility] nRBC % Auto 0.0 % [facility] nRBC Abs Auto 0.000 0.000 - 0.000 x10(3)/[facility] Blood specimen (specimen) 07/16/2017 5:16 AM EDT 07/16/2017 5:31 AM EDT Narrative Resulting Agency Comment Spec In Lab Ky Amato MD HEMATOLOGY ORDERABLE S [facility] [place] [address] * Magnesium (07/16/2017 5:16 AM EDT) Magnesium 0.82 0.69 - 1.07 mmol/L [facility] Blood specimen (specimen) 07/16/2017 5:16 AM EDT 07/16/2017 5:31 AM EDT Narrative Resulting Agency Comment Spec In Lab Ky Amato MD CHEMISTRY ORDERABLES [facility] [place] [address] * Basic Metabolic Panel (non-fasting) (07/16/2017 5:16 AM EDT) Glucose Lvl 107 65 - 199 mg/dL [facility] Comment:Diabetes: >=200 mg/d L plus symptoms BUN 11 10 - 20 mg/dL [facility] Creatinine 1.05 0.80 - 1.50 mg/dL [facility] Comment: Please note that the pediatric reference intervals supplied above were not validated at [facility]. Results from pediatric patients should be interpreted in conjunction to the patient's age, height and muscle mass. Sodium 139 135 - 145 mmol/L [facility] Potassium 4.0 3.5 - 5.0 mmol/L [facility] Comment: Please note: ??Patients with WBC >100,000 may have falsely elevated Potassium levels. ??For accurate Potassium quantification in these patients send serum separator tube (gold top) for subsequent determinations. ??Contact the Clinical Chemistry Laboratory if there are any questions. Chloride 101 98 - 107 mmol/L [facility] CO2 26 22 - 31 mmol/L [facility] Anion Gap 12 5 - 15 mmol/L [facility] Calcium 9.0 8.5 - 10.5 mg/dL [facility] Estimated GFR >60 >=60 [facility] Comment: This estimated GFR (eGFR) [...] the following links into your internet browser. [email or web address] Blood specimen (specimen) 07/16/2017 5:16 AM EDT 07/16/2017 5:31 AM EDT Narrative Resulting Agency Comment Spec In Lab Ky Amato MD CHEMISTRY ORDERABLES [facility] [place] [address] * ECHO COMPLETE (07/15/2017 11:23 AM EDT) EF 60 HEARTLAB SYSTEM Anatomical Region Laterality Modality Other 07/15/2017 Narrative 07/15/2017 1:08 PM EDT Procedure: ?Transthoracic Echocardiogram Patient: ?ISAAC Rodney ?(Age): 1970(46y) Med Rec#: ? [id number] ?Sex: ?M ? Site Loc: ? [facility] ?Ht / Wt: ??168(cm)/173(kg) Pt. Loc: ?Echo Lab ?BSA: ?2.64 Study Date: ?? 07/15/2017 ?Pt. Type: Inpatient Tape: ? Referring: SEVERO GREEN R Referring: Ky Amato Reading: Dao Perez ([id number]) Hris Specialist: Gabriel Silva ALISHA Diagnosis: *ICD-10-PCS ST elevation (STEMI) myocardial infarction of unspecified site (I21.3) BP: ? 100/60 SUMMARY: 1. The left ventricular chamber size is normal. ??There is normal global left ventricular systolic function. ??The quantitative left ventricular ejection fraction by biplane Malik's method is 60%. ??There are left ventricular segmental wall motion abnormalities present at [facility] inferolateral wall, as coded in the diagram [...] E-wave Vmax ?0.9 ?m/sec ? MV deceleration [id number] ?msec ? MV A-wave Vmax ?0.5 ?m/sec [...] ? Mid-Inferior ?Normal ? Mid-Inferoseptal ?Normal ? [place]-Septal ? Normal ? [place]-Anterior ? Normal ? [place]-Lateral ?Normal ? [place]-Inferior ? Normal ? [place]-Tip ?Normal ? This report has been electronically signed by: Dao Perez MD ? 07/15/2017 13:08:41 Images reviewed and interpretation verified [facility] Cardiac Ultrasound Laboratory Procedure Note Dao Perez MD - 07/15/2017 Procedure: Transthoracic Echocardiogram Patient: ISAAC Rodney (Age): 1970(46y) Med Rec#: [id number] Sex: M Site Loc: [facility] Ht / Wt: 168(cm)/173(kg) Pt. Loc: Echo Lab BSA: 2.64 Study Date: 07/15/2017 Pt. Type: Inpatient Tape: Referring: SEVERO GREEN R Referring: Ky Amato Reading: Dao Perez ([id number]) Hris Specialist: Gabriel Silva [facility] Diagnosis: *ICD-10-PCS ST elevation (STEMI) myocardial infarction of unspecified site (I21.3) BP: 100/60 SUMMARY: 1. The left ventricular chamber size is normal. There is normal global left ventricular systolic function. The quantitative left ventricular ejection fraction by biplane Malik's method is 60%. There are left ventricular segmental wall motion abnormalities present at [facility] inferolateral wall, as coded in the diagram [...] MV E-wave Vmax 0.9 m/sec MV deceleration [id number] msec MV A-wave Vmax 0.5 m/sec MV [...] Normal Mid-Posterolateral Akinetic Mid-Inferior Normal Mid-Inferoseptal Normal [place]-Septal Normal [place]-Anterior Normal [place]-Lateral Normal [place]-Inferior Normal [place]-Tip Normal This report has been electronically signed by: Dao Perez MD 07/15/2017 13:08:41 Images reviewed and interpretation verified [facility] Cardiac Ultrasound Laboratory Ky Amato MD ECHO ORDERABLES * EKG 12 Lead (07/15/2017 7:31 AM EDT) Ventricular rate 81 BPM MUSE SYSTEM Atrial Rate 81 BPM MUSE SYSTEM P-R Interval 134 ms MUSE SYSTEM QRS Duration 94 ms MUSE SYSTEM Q-T Interval 354 ms MUSE SYSTEM QTC Calculated (Bezet) 411 ms MUSE SYSTEM Calculated P [place] 36 degrees MUSE SYSTEM Calculated R [place] 36 degrees MUSE SYSTEM Calculated T [place] 45 degrees MUSE SYSTEM INTERPRETATION Normal sinus rhythm Normal ECG When compared with ECG of 14-JUL-2017 08:54, (unconfirmed) Criteria for Inferior-posterio r infarct are no longer Present I personally reviewed the tracing and edited the fellows interpretation Confirmed by fellow MD Linda, Jerri Rodney ([id number]) on 07/15/2017 11:45:01 AM Confirmed by MEÑO ??KY PANDEY ([id number]) on 07/15/2017 12:47:33 PM MUSE SYSTEM 07/15/2017 7:31 AM EDT 07/15/2017 12:47 PM EDT Ky Amato MD ECG ORDERABLES MUSE SYSTEM * (ABNORMAL) Differential, Automated (07/15/2017 4:37 AM EDT) Neutrophils % 65.1 % [facility] Neutr Abs (ANC) 6.19(H) 1.70 - 6.10 x10(3)/[facility] Lymphocytes % 23.2 % [facility] Lymphocytes Abs 2.2 0.9 - 3.2 x10(3)/[facility] Monocytes % 9.7 % [facility] Monocyte Abs 0.9 0.3 - 0.9 x10(3)/[facility] Eosinophils % 1.3 % [facility] Eosinophils Abs 0.1 0.0 - 0.4 x10(3)/[facility] Basophils % 0.3 % [facility] Basophils Abs 0.0 0.0 - 0.1 x10(3)/[facility] Immature Gran % 0.40 % [facility] Comment: Immature granulocytes(IG's)percentage and absolute count will include metamyelocytes, myelocytes, and promyelocytes. Blood smears from CBCs yielding IG's will be scanned manually for concordance. If this scan disagrees with the automated IG or if promyelocytes are noted, a manual differential will be performed. Amy Gran Abs 0.04 0.00 - 0.04 x10(3)/ L [facility] Blood specimen (specimen) 07/15/2017 4:37 AM EDT 07/15/2017 4:46 AM EDT Narrative Resulting Agency Comment Spec In Lab Ky Amato MD HEMATOLOGY ORDERABLE S [facility] [place] [address] * (ABNORMAL) Hemogram (07/15/2017 4:37 AM EDT) WBC 9.5 4.0 - 9.5 x10(3)/[facility] RBC 4.24(L) 4.58 - 5.54 x10(6)/[facility] Hemoglobin 12.3(L) 13.7 - 16.5 gm/dL [facility] Hematocrit 36.5(L) 40.5 - 48.5 % [facility] MCV 86.1 82.9 - 93.1 [facility] MCH 29.0 27.5 - 32.1 pg [facility] MCHC 33.7 32.0 - 35.7 gm/dL [facility] Platelets 145 145 - 357 x10(3)/[facility] RDWSD 42.3 36.0 - 45.0 [facility] RDWCV 13.5 11.4 - 13.8 % [facility] MPV 10.2 7.6 - 12.9 [facility] nRBC % Auto 0.0 % [facility] nRBC Abs Auto 0.000 0.000 - 0.000 x10(3)/[facility] Blood specimen (specimen) 07/15/2017 4:37 AM EDT 07/15/2017 4:46 AM EDT Narrative Resulting Agency Comment Spec In Lab Ky Amato MD HEMATOLOGY ORDERABLE S Performing Organization Address [facility] Co de Phone Number [facility] [place] [address] * Magnesium (07/15/2017 4:37 AM EDT) [facility] Magnesium 0.96 0.69 - 1.07 mmol/L [facility] Blood specimen (specimen) 07/15/2017 4:37 AM EDT 07/15/2017 4:46 AM EDT Narrative Resulting Agency Comment Spec In Lab Ky Amato MD CHEMISTRY ORDERABLES Performing Organization Address [facility] de Phone Number [facility] [place] [address] * Basic Metabolic Panel (non-fasting) (07/15/2017 4:37 AM EDT) [facility] Glucose Lvl 114 65 - 199 mg/dL [facility] Comment:Diabetes: >=200 mg/d L plus symptoms BUN 10 10 - 20 mg/dL [facility] Creatinine 0.88 0.80 - 1.50 mg/dL [facility] Comment: Please note that the pediatric reference intervals supplied above were not validated at [facility]. Results from pediatric patients should be interpreted in conjunction to the patient's age, height and muscle mass. Sodium 137 135 - 145 mmol/L [facility] Potassium 4.1 3.5 - 5.0 mmol/L [facility] Comment: Please note: ??Patients with WBC >100,000 may have falsely elevated Potassium levels. ??For accurate Potassium quantification in these patients send serum separator tube (gold top) for subsequent determinations. ??Contact the Clinical Chemistry Laboratory if there are any questions. Chloride 100 98 - 107 mmol/L [facility] CO2 25 22 - 31 mmol/L [facility] Anion Gap 12 5 - 15 mmol/L [facility] Calcium 8.9 8.5 - 10.5 mg/dL [facility] Estimated GFR >60 >=60 [facility] Comment: This estimated GFR (eGFR) [...] the following links into your internet browser. [email or web address] Blood specimen (specimen) 07/15/2017 4:37 AM EDT 07/15/2017 4:46 AM EDT Narrative Resulting Agency Comment Spec In Lab Ky Amato MD CHEMISTRY ORDERABLES Performing Organization Address City/State/[facility] Co de Phone Number [facility] [place] [phone] * EKG 12 Lead (07/14/2017 8:54 AM EDT) Ventricular rate 84 BPM MUSE SYSTEM Atrial Rate 84 BPM MUSE SYSTEM P-R Interval 148 ms MUSE SYSTEM QRS Duration 96 ms MUSE SYSTEM Q-T Interval 366 ms MUSE SYSTEM QTC Calculated (Bezet) 432 ms MUSE SYSTEM Calculated P [place] 40 degrees MUSE SYSTEM Calculated R [place] 36 degrees MUSE SYSTEM Calculated T [place] 62 degrees MUSE SYSTEM INTERPRETATION Normal sinus rhythm Low voltage QRS Inferior-po sterior infarct (cited on or before 13-JUL-2017 ) Abnormal ECG When compared with ECG of 13-JUL-2017 15:02, (unconfirme d) Serial changes of evolving Inferior-po sterior infarct Present Confirmed by MD Alecia, Ruperto Moya ([id number]) on 07/15/2017 12:53:12 PM MUSE SYSTEM 07/14/2017 8:54 AM EDT 07/15/2017 12:53 PM EDT Ky Amato MD ECG ORDERABLES MUSE SYSTEM * POCT Glucose (07/14/2017 8:07 AM EDT) POC Glucose 122 65 - 199 mg/dL [facility] Comment: Supplemental ranges: <140 mg/dL before meals <180 mg/dL all other times of the day Blood specimen (specimen) 07/14/2017 8:07 AM EDT 07/14/2017 8:07 AM EDT Ky Amato MD POINT OF CARE TEST O RDERABLES [facility] [place] [address] * (ABNORMAL) Cardiac Enzymes (07/14/2017 3:20 AM EDT) Troponin-T 5.83(H) 0.00 - 0.00 ng/mL [facility] Comment: result rechecked-[facility] The 99th percentile for Troponin T is less than 0.01 ng/mL, any detectable cTnT concentration using this assay should be considered elevated. According to the third universal definition of myocardial infarction the following criteria with a clinical presentation consistent with acute myocardial ischemia meets the diagnosis for a myocardial infarction ([place]). Detection of a rise and/or fall of cTnT, with at least one value greater than the 99th percentile (> or = 0.01) and with at least one of the following ?? Symptoms of ischemia ?? New or presumed new significant HL-ayehxgb-T wave (ST-T) changes or new left bundle [...] additional sample may be indicated. Reference: Third Warrens Definition of Myocardial Infarction. Journal of the [place] [employer] 2012;60:1581-98 CK, Total 2,165(H) 0 - 200 unit/L [facility] Blood specimen (specimen) Venous Draw / Unknown 07/14/2017 3:20 AM EDT 07/14/2017 3:33 AM EDT Narrative Resulting Agency Comment Spec In Lab Ky Amato MD CHEMISTRY ORDERABLES [facility] [place] [address] * (ABNORMAL) Differential, Automated (07/14/2017 3:20 AM EDT) Neutrophils % 81.8 % [facility] Neutr Abs (ANC) 9.44(H) 1.70 - 6.10 x10(3)/[facility] Lymphocytes % 11.2 % [facility] Lymphocytes Abs 1.3 0.9 - 3.2 x10(3)/[facility] Monocytes % 6.2 % [facility] Monocyte Abs 0.7 0.3 - 0.9 x10(3)/[facility] Eosinophils % 0.1 % [facility] Eosinophils Abs 0.0 0.0 - 0.4 x10(3)/[facility] Basophils % 0.3 % [facility] Basophils Abs 0.0 0.0 - 0.1 x10(3)/[facility] Immature Gran % 0.40 % [facility] Comment: Immature granulocytes(IG's)percentage and absolute count will include metamyelocytes, myelocytes, and promyelocytes. Blood smears from CBCs yielding IG's will be scanned manually for concordance. If this scan disagrees with the automated IG or if promyelocytes are noted, a manual differential will be performed. Amy Gran Abs 0.05(H) 0.00 - 0.04 x10(3)/ L [facility] Blood specimen (specimen) 07/14/2017 3:20 AM EDT 07/14/2017 3:33 AM EDT Narrative Resulting Agency Comment Spec In Lab Ky Amato MD HEMATOLOGY ORDERABLE S [facility] [place] [address] * (ABNORMAL) Hemogram (07/14/2017 3:20 AM EDT) WBC 11.5(H) 4.0 - 9.5 x10(3)/[facility] RBC 4.56(L) 4.58 - 5.54 x10(6)/[facility] Hemoglobin 13.5(L) 13.7 - 16.5 gm/dL [facility] Hematocrit 38.8(L) 40.5 - 48.5 % [facility] MCV 85.1 82.9 - 93.1 [facility] MCH 29.6 27.5 - 32.1 pg [facility] MCHC 34.8 32.0 - 35.7 gm/dL [facility] Platelets 197 145 - 357 x10(3)/[facility] RDWSD 42.0 36.0 - 45.0 [facility] RDWCV 13.6 11.4 - 13.8 % [facility] MPV 10.4 7.6 - 12.9 [facility] nRBC % Auto 0.0 % [facility] nRBC Abs Auto 0.000 0.000 - 0.000 x10(3)/[facility] Blood specimen (specimen) 07/14/2017 3:20 AM EDT 07/14/2017 3:33 AM EDT Narrative Resulting Agency Comment Spec In Lab Ky Amato MD HEMATOLOGY ORDERABLE S [facility] [place] [address] * Magnesium (07/14/2017 3:20 AM EDT) Magnesium 0.70 0.69 - 1.07 mmol/L [facility] Blood specimen (specimen) 07/14/2017 3:20 AM EDT 07/14/2017 3:33 AM EDT Narrative Resulting Agency Comment Spec In Lab Ky Amato MD CHEMISTRY ORDERABLES [facility] [place] [address] * (ABNORMAL) Basic Metabolic Panel (non-fasting) (07/14/2017 3:20 AM EDT) Glucose Lvl 129 65 - 199 mg/dL [facility] Comment:Diabetes: >=200 mg/d L plus symptoms BUN 11 10 - 20 mg/dL [facility] Creatinine 0.79(L) 0.80 - 1.50 mg/dL [facility] Comment: Please note that the pediatric reference intervals supplied above were not validated at [facility]. Results from pediatric patients should be interpreted in conjunction to the patient's age, height and muscle mass. Sodium 139 135 - 145 mmol/L [facility] Potassium 4.3 3.5 - 5.0 mmol/L [facility] Comment: Please note: ??Patients with WBC >100,000 may have falsely elevated Potassium levels. ??For accurate Potassium quantification in these patients send serum separator tube (gold top) for subsequent determinations. ??Contact the Clinical Chemistry Laboratory if there are any questions. Chloride 103 98 - 107 mmol/L [facility] CO2 22 22 - 31 mmol/L [facility] Anion Gap 14 5 - 15 mmol/L [facility] Calcium 8.6 8.5 - 10.5 mg/dL [facility] Estimated GFR >60 >=60 [facility] Comment: This estimated GFR (eGFR) [...] the following links into your internet browser. [email or web address] Blood specimen (specimen) 07/14/2017 3:20 AM EDT 07/14/2017 3:33 AM EDT Narrative Resulting Agency Comment Spec In Lab Ky Amato MD CHEMISTRY ORDERABLES Performing Organization Address [facility] Co de Phone Number [facility] [place] [address] * TSH (07/14/2017 3:20 AM EDT) TSH 1.55 0.27 - 4.20 mlU/ML [facility] Blood specimen (specimen) 07/14/2017 3:20 AM EDT 07/14/2017 3:33 AM EDT Narrative Resulting Agency Comment Spec In Lab Ky Amato MD CHEMISTRY ORDERABLES Performing Organization Address [facility] Co de Phone Number [facility] [place] [address] * (ABNORMAL) Lipid Panel (07/14/2017 3:20 AM EDT) Chol, Total 121 <=239 mg/dL [facility] Triglycerides 72 <=199 mg/dL [facility] HDL 37(L) >=40 mg/dL [facility] LDL Cholesterol 70 <=190 mg/dL [facility] Chol/HDL Ratio 3.3 ratio [facility] Lipid Interpretation See Note [facility] Comment: Lipid management should be guided by a patient? s ASCVD risk, goals and preferences. ACC/AHA Guidelines recommend high intensity statin if clinical ASCVD or LDL greater than or equal to 190 mg/dL. [email or web address] Adults aged 40-75 with LDL 70-189 mg/dL should have their 10 year ASCVD risk estimated with the ACC/AHA ASCVD risk materials management clerk http://tools.acc.org/UWORZ-Rvwa-Fyiutfqfu/ Statin should be discussed if risk greater [...] In Lab Ky Amato MD CHEMISTRY ORDERABLES [facility] [place] [address] * Hemoglobin A1c (07/14/2017 3:20 AM EDT) Hemoglobin A1C 5.1 4.3 - 5.6 % [facility] Comment: Reference Range: 4.3 - [...] 1, S67-74 Est Avg Gluc 100 mg/dL [facility] Comment: eAG equivalents [...] into estimated average glucose values. ??Diabetes Care 2008:31(8):4784-2443. Blood specimen (specimen) 07/14/2017 3:20 AM EDT 07/14/2017 3:33 AM EDT Narrative Resulting Agency Comment Spec In Lab Ky Amato MD CHEMISTRY ORDERABLES [facility] [place] [address] * SCAN DOC: DIRECTOR OF SUPPLY CHAIN (07/14/2017 12:00 AM EDT) Anatomical Region Laterality Modality Other Narrative 07/14/2017 12:00 AM EDT Ordered by an unspecified provider. Scanning Provider MEDIA MGR SCAN EXT O RDR/RSLT * (ABNORMAL) Cardiac Enzymes (07/13/2017 9:10 PM EDT) Troponin-T 7.00(H) 0.00 - 0.00 ng/mL [facility] Comment: Result rechecked. The 99th percentile for Troponin T is less than 0.01 ng/mL, any detectable cTnT concentration using this assay should be considered elevated. According to the third universal definition of myocardial infarction the following criteria with a clinical presentation consistent with acute myocardial ischemia meets the diagnosis for a myocardial infarction ([place]). Detection of a rise and/or fall of cTnT, with at least one value greater than the 99th percentile (> or = 0.01) and with at least one of the following ?? Symptoms of ischemia ?? New or presumed new significant AL-oojzbci-T wave (ST-T) changes or new left bundle [...] additional sample may be indicated. Reference: Third Warrens Definition of Myocardial Infarction. Journal of the [place] [employer] 2012;60:1581-98 CK, Total 2,820(H) 0 - 200 unit/L [facility] Blood specimen (specimen) 07/13/2017 9:10 PM EDT 07/13/2017 9:14 PM EDT Narrative Resulting Agency Comment Spec In Lab Ky Amato MD CHEMISTRY ORDERABLES [facility] [place] [id number] * XR Chest PA or AP 1 [...] * POCT Glucose (07/13/2017 7:30 PM EDT) Pathologist [facility] POC Glucose 110 65 - 199 mg/dL [facility] Comment: Supplemental ranges: <140 mg/dL before meals <180 mg/dL all other times of the day Blood specimen (specimen) 07/13/2017 7:30 PM EDT 07/13/2017 7:30 PM EDT Ky Amato MD POINT OF CARE TEST O RDERABLES [facility] [place] [address] * EKG 12 Lead (07/13/2017 3:02 PM EDT) Ventricular rate 76 BPM MUSE SYSTEM Atrial Rate 76 BPM MUSE SYSTEM P-R Interval 158 ms MUSE SYSTEM QRS Duration 92 ms MUSE SYSTEM Q-T Interval 378 ms MUSE SYSTEM QTC Calculated (Bezet) 425 ms MUSE SYSTEM Calculated P [place] 39 degrees MUSE SYSTEM Calculated R [place] 51 degrees MUSE SYSTEM Calculated T [place] 68 degrees MUSE SYSTEM INTERPRETATION Normal sinus rhythm Inferior-poste rior infarct , possibly acute * ACUTE [place] ?? Consider right ventricular involvement in acute inferior infarct Abnormal ECG No previous ECGs available Confirmed by MD Alston Gregory A. ([id number]) on 07/15/2017 12:53:01 PM MUSE SYSTEM 07/13/2017 3:02 PM EDT 07/15/2017 12:53 PM EDT Ky Amato MD ECG ORDERABLES MUSE SYSTEM * POCT Glucose (07/13/2017 3:01 PM EDT) Pathologist [facility] POC Glucose 113 65 - 199 mg/dL [facility] Comment: Supplemental ranges: <140 mg/dL before meals <180 mg/dL all other times of the day Blood specimen (specimen) 07/13/2017 3:01 PM EDT 07/13/2017 3:01 PM EDT Ky Amato MD POINT OF CARE TEST O RDERABLES Performing Organization Address City/[facility]/ZIP Co de Phone Number [facility] [place] [address] * (ABNORMAL) Differential, Automated (07/13/2017 3:00 PM EDT) Pathologist [facility] Neutrophils % 80.0 % [facility] Neutr Abs (ANC) 8.14(H) 1.70 - 6.10 x10(3)/ L [facility] Lymphocytes % 14.4 % [facility] Lymphocytes Abs 1.5 0.9 - 3.2 x10(3)/[facility] Monocytes % 4.8 % [facility] Monocyte Abs 0.5 0.3 - 0.9 x10(3)/[facility] Eosinophils % 0.1 % [facility] Eosinophils Abs 0.0 0.0 - 0.4 x10(3)/[facility] Basophils % 0.3 % [facility] Basophils Abs 0.0 0.0 - 0.1 x10(3)/[facility] Immature Gran % 0.40 % [facility] Comment: Immature granulocytes(IG's)percentage and absolute count will include metamyelocytes, myelocytes, and promyelocytes. Blood smears from CBCs yielding IG's will be scanned manually for concordance. If this scan disagrees with the automated IG or if promyelocytes are noted, a manual differential will be performed. Amy Gran Abs 0.04 0.00 - 0.04 x10(3)/mc L [facility] Blood specimen (specimen) 07/13/2017 3:00 PM EDT 07/13/2017 3:18 PM EDT Narrative Resulting Agency Comment Spec In Lab Ky Amato MD HEMATOLOGY ORDERABLE S [facility] [place] [address] * (ABNORMAL) Hemogram (07/13/2017 3:00 PM EDT) WBC 10.2(H) 4.0 - 9.5 x10(3)/[facility] RBC 4.60 4.58 - 5.54 x10(6)/[facility] Hemoglobin 13.4(L) 13.7 - 16.5 gm/dL [facility] Hematocrit 39.8(L) 40.5 - 48.5 % [facility] MCV 86.5 82.9 - 93.1 [facility] MCH 29.1 27.5 - 32.1 pg [facility] MCHC 33.7 32.0 - 35.7 gm/dL [facility] Platelets 193 145 - 357 x10(3)/[facility] RDWSD 41.3 36.0 - 45.0 [facility] RDWCV 13.4 11.4 - 13.8 % [facility] MPV 9.9 7.6 - 12.9 [facility] nRBC % Auto 0.0 % [facility] nRBC Abs Auto 0.000 0.000 - 0.000 x10(3)/[facility] Blood specimen (specimen) 07/13/2017 3:00 PM EDT 07/13/2017 3:18 PM EDT Narrative Resulting Agency Comment Spec In Lab Ky Amato MD HEMATOLOGY ORDERABLE S Performing Organization Address [facility] Co de Phone Number [facility] [place] [address] * (ABNORMAL) APTT (07/13/2017 3:00 PM EDT) PTT 138(Criti torey) 25 - 35 sec [facility] Comment: Called by: ALEXIA, Read back by: Germaine Núñez/MAGDACC, Date/Time:07/13/17 15:39. The recommended therapeutic range for full dose, unfractionated heparin at [facility] is 80 ? 114 seconds. The use of the anti-Xa (heparin) level rather than the PTT is recommended for monitoring anticoagulation intensity in critically ill patients receiving unfractionated heparin by continuous IV infusion. Blood specimen (specimen) 07/13/2017 3:00 PM EDT 07/13/2017 3:18 PM EDT Narrative Resulting Agency Comment Spec In Lab Ky Amato MD HEMATOLOGY ORDERABLE S Performing Organization Address [facility] Co de Phone Number [facility] [place] [address] * (ABNORMAL) Prothrombin Time (07/13/2017 3:00 PM EDT) PT 16.0(H) 12.0 - 15.0 sec [facility] Comment: An INR <2.0 indicates [...] clinical circumstances. INR 1.2(H) 0.9 - 1.1 [facility] Blood specimen (specimen) 07/13/2017 3:00 PM EDT 07/13/2017 3:18 PM EDT Narrative Resulting Agency Comment Spec In Lab Ky Amato MD HEMATOLOGY ORDERABLE S Performing Organization Address [facility]/ZIP Co de Phone Number [facility] [place] [address] * (ABNORMAL) Cardiac Enzymes (07/13/2017 3:00 PM EDT) [facility] Troponin-T 4.96(H) 0.00 - 0.00 ng/mL [facility] Comment: The 99th percentile for Troponin T is less than 0.01 ng/mL, any detectable cTnT concentration using this assay should be considered elevated. According to the third universal definition of myocardial infarction the following criteria with a clinical presentation consistent with acute myocardial ischemia meets the diagnosis for a myocardial infarction ([place]). Detection of a rise and/or fall of cTnT, with at least one value greater than the 99th percentile (> or = 0.01) and with at least one of the following ?? Symptoms of ischemia ?? New or presumed new significant FI-ovynshb-R wave (ST-T) changes or new left bundle [...] additional sample may be indicated. Reference: Third Warrens Definition of Myocardial Infarction. Journal of the [place] [employer] 2012;60:1581-98 CK, Total 2,712(H) 0 - 200 unit/L [facility] Blood specimen (specimen) 07/13/2017 3:00 PM EDT 07/13/2017 3:18 PM EDT Narrative Resulting Agency Comment Spec In Lab Ky Amato MD CHEMISTRY ORDERABLES Performing Organization Address City/[facility]/ZIP Co de Phone Number [facility] [place] [address] * (ABNORMAL) Comprehensive metabolic panel (non-fasting) (07/13/2017 3:00 PM EDT) [facility] Glucose Lvl 119 65 - 199 mg/dL [facility] Comment:Diabetes: >=200 mg/d L plus symptoms BUN 11 10 - 20 mg/dL [facility] Creatinine 1.01 0.80 - 1.50 mg/dL [facility] Comment: Please note that the pediatric reference intervals supplied above were not validated at [facility]. Results from pediatric patients should be interpreted in conjunction to the patient's age, height and muscle mass. Sodium 139 135 - 145 mmol/L [facility] Potassium 4.4 3.5 - 5.0 mmol/L [facility] Comment: Please note: ??Patients with WBC >100,000 may have falsely elevated Potassium levels. ??For accurate Potassium quantification in these patients send serum separator tube (gold top) for subsequent determinations. ??Contact the Clinical Chemistry Laboratory if there are any questions. Chloride 103 98 - 107 mmol/L [facility] CO2 24 22 - 31 mmol/L [facility] Anion Gap 12 5 - 15 mmol/L [facility] Calcium 8.4(L) 8.5 - 10.5 mg/dL [facility] Total Protein 6.0(L) 6.1 - 8.0 gm/dL [facility] Albumin 3.0(L) 3.2 - 5.2 gm/dL [facility] AST 193(H) 0 - 39 unit/L [facility] ALT 35 0 - 55 unit/L [facility] Alk Phos 44 40 - 120 unit/L [facility] Total Bilirubin 0.6 0.2 - 1.3 mg/dL [facility] Estimated GFR >60 >=60 [facility] Comment: This estimated GFR (eGFR) [...] the following links into your internet browser. [email or web address] Blood specimen (specimen) 07/13/2017 3:00 PM EDT 07/13/2017 3:18 PM EDT Narrative Resulting Agency Comment Spec In Lab Ky Amato MD CHEMISTRY ORDERABLES Performing Organization Address [facility]/ZIP Co de Phone Number [facility] [place] [address] * CARDIAC CATHETERIZATION (07/13/2017 2:29 PM EDT) Anatomical Region Laterality Modality Other Narrative 07/13/2017 2:53 PM EDT ?[facility] ? Cardiac Catheterization/Intervention Report ? Patient Name: Rolo Aguilar ? Procedure Date: 07/13/2017 ? A #: [id number] ? Primary Physician: Neftali White V ? Case #: [id number] ? File Name: [id number] ? Catheterization Order Number: [id number] ? [facility] ? Final Report [place], [place] ? Patient Name: ? Rolo Aguilar ? ID#: ?[id number] ? : ?1970 ? Procedure Date: ? July 13, 2017 ?Case #: ? [id number] ? Room: ? 5 ? Case Physician: [...] at Catheterization: ?The patient presented with: ST-Elevation [place] (STEMI) or equivalent (w/i 7 ?days). [place] [employer] angina class was IV. This [...] dose administered prior to arrival in the lab clerk. ?Recommend continuing clopidogrel 75 mg PO daily [...] insertion-coronary and access site angiography. ? Neftali V White, M.D. ? Electronically Signed by: Neftali V White, M.D. ? Report Finalized: 07/13/2017 ??14:45 ? Report Last Ammended: 10/23/2017 ??13:36 ? Procedure Note Neftali White MD - 10/23/2017 [facility] Cardiac Catheterization/Intervention Report Patient Name: Rolo Aguilar Procedure Date: 07/13/2017 A #: [id number] Primary Physician: Neftali White V Case #: [id number] File Name: [id number] Catheterization Order Number: [id number] [facility] FinalReport [place], [place] Patient Name: Rolo Aguilar ID#:[id number] :1970 Procedure Date: July 13, 2017 Case [...] at Catheterization: The patient presented with: ST-Elevation [place] (STEMI) or equivalent(w/i 7 days). [place] [employer] angina class was IV. Thispatient [...] priority for the procedure was Emergent. The [facility] indication for the procedure was STEMI (Stable [...] dose administered prior to arrival in the lab clerk. Recommend continuing clopidogrel 75 mg PO daily [...] 07/13/2017 14:45 Report Last Ammended: 10/23/2017 13:36 Nefatli Grijalva MD CARDIAC CATH ORDERAB LES documented [...] mg, Oral, EVERY EVENING, First dose on Fri07/13/17 at 1815, Until Discontinued, Routine Given 07/15/2017 4:44 PM EDT 80 mg Given 07/14/2017 5:08 PM EDT 80 mg Given 07/13/2017 8:17 PM EDT 80 mg clonazePAM (KlonoPIN) tablet 1 mg [...] 07/14/2017 9:06 AM EDT 75 mg fentaNYL 50 mcg/mL multi-dose injection ONCE PRN, Starting on 07/13/17 at 1252, Until Fri07/13/17 at 1342, Intra-Operative (Intra-Procedure), Routine Given 07/13/2017 12:52 PM EDT 25 mcg fentaNYL 50 mcg/mL multi-dose injection ONCE PRN, Starting on Fri07/13/17 at 1410, Until Fri07/13/17 at 1412, Cath (Intra-Procedure), Routine Given 07/13/2017 2:10 PM EDT 25 mcg fentaNYL 50 mcg/mL multi-dose injection ONCE PRN, Starting on Fri07/13/17 at 1415, Until Fri07/13/17 at 1427, Cath (Intra-Procedure), Routine Given 07/13/2017 2:15 PM EDT 25 mcg heparin (porcine) injection ONCE PRN, Starting on Fri07/13/17 at 1352, Until Fri07/13/17 at 1412, Cath (Intra-Procedure), Routine Given 07/13/2017 2:05 PM EDT 3,000 Units Given 07/13/2017 1:52 PM EDT 3,000 Units Given 07/13/2017 12:55 PM EDT 3,000 Units heparin (Porcine) subcutaneous injection 5,000 Units 5,000 Units, Subcutaneous, EVERY 8 HOURS SCHEDULED, First dose on Fri07/14/17 at 0600, Until Discontinued, Routine Given 07/16/2017 5:17 AM EDT 5,000 Unit s Given 07/15/2017 8:35 PM EDT 5,000 Units Given 07/15/2017 2:31 PM EDT 5,000 Units iohexol (OMNIPAQUE) 350 mg/mL solution ONCE PRN, Starting on Fri07/13/17 at 1412, Until Fri07/13/17 at 1412, Cath (Intra-Procedure), Routine Given 07/13/2017 2:12 PM EDT 102 mLs lamoTRIgine (LaMICtal) tablet 200 mg 200 mg, Oral, DAILY, First dose on Fri07/13/17 at 1800, Until Discontinued, Routine Given 07/15/2017 8:31 PM E DT 200 mg Given 07/14/2017 8:33 PM EDT 200 mg Given 07/13/2017 8:18 PM EDT 200 mg lisinopril (PRINIVIL;ZESTRIL) tablet 2.5 mg 2.5 mg, Oral, DAILY, First dose on Fri07/14/17 at 0900, Until Discontinued, Routine Given 07/16/2017 8:33 AM EDT 5 mg Given 07/15/2017 8:21 AM EDT 2.5 mg Given 07/14/2017 9:10 AM EDT 2.5 mg meTOPROLOL tartrate (LOPRESSOR) tablet 25 mg 25 mg, Oral, EVERY 12 HOURS SCHEDULED (2 times per day), First dose on 07/13/17 at 2100, Until Discontinued, Routine Given 07/16/2017 8:34 AM EDT 25 mg Given 07/15/2017 8:26 PM EDT 25 mg Given 07/15/2017 8:19 AM EDT 25 mg midazolam (PF) (VERSED) 1 mg/mL multi-dose injection ONCE PRN, Starting on 07/13/17 at 1253, Until 07/13/17 at 1342, Cath (Intra-Procedure), Routine Given 07/13/2017 12:53 PM EDT 1 mg midazolam (PF) (VERSED) 1 mg/mL multi-dose injection ONCE PRN, Starting on 07/13/17 at 1415, Until 07/13/17 at 1427, Cath (Intra-Procedure), Routine Given 07/13/2017 2:15 PM EDT 1 mg niCARdipine (CARDENE) in sodium chloride 0.9% injection ONCE PRN, Starting on 07/13/17 at 1410, Until 07/13/17 at 1412, Intra-Operative (Intra-Procedure), Routine Given 07/13/2017 2:10 PM EDT 200 mcg nitroGLYcerin 100 mcg/mL intracoronary dilution ONCE PRN, Starting on 07/13/17 at 1254, Until 07/13/17 at 1342, Cath (Intra-Procedure), Routine Given 07/13/2017 12:54 PM EDT 150 mcg pantoprazole (PROTONIX) tablet 40 mg 40 mg, Oral, DAILY, First dose on 07/13/17 at 1630, Until Discontinued, DO NOT CRUSH OR OPEN Given 07/16/2017 8:34 AM EDT 40 mg Given 07/15/2017 8:22 AM EDT 40 mg Given 07/14/2017 8:04 AM EDT 40 mg verapamil (ISOPTIN) injection ONCE PRN, Starting on 07/13/17 at 1253, Until 07/13/17 at 1342, Administer over 2 Minutes, Cath (Intra-Procedure) Given 07/13/2017 12:53 PM EDT 2.5 mg ziprasidone (GEODON) capsule 20 mg 20 mg, [...] 0906 (Given - Provider: Rachana Macias RN) 0819 [...] on 07/13/17 at 2100, Until Discontinued, Routine 0906 (Given - Provider: Rachana Macias RN)2024 (Given - Provider: Db Monsalve) 0820 (Given - Provider: Mavis Gamboa RN)202 (Given - Provider: Thor Bobo RN) 0833 [...] See comment - Comment: PT REQUESTED EARLY) 0517 (Given - Provider: Thor Bobo RN) lamoTRIgine [...] Minutes 0808 (New Bag - Provider: Rachana Macias RN)1008 (Stopped - Provider: Cherelle Loaiza RN) [...] Provider: Rachana Macias RN)2024 (Given - Provider: Db Monsalve) 08 (Given - Provider: Mvais Gamboa RN)2025 (Given - Provider: Thor Bobo, FLAVIA) 08 (Given - Provider: Mavis Gamboa, FLAVIA) pantoprazole (PROTONIX) tablet 40 mg 40 mg, Oral, DAILY, First dose on 07/13/17 at 1630, Until Discontinued, DO NOT CRUSH OR OPEN 0804 (Given - Provider: Rachana Macias RN) 08 (Given - Provider: Mavis Gamboa RN) 0834 [...] Routine documented in this encounter Care Teams Cylinder Dyer Relationship Specialty Start Date End Date Severo Bowman MD [address] [address] PCP - General General Internal Medicine 04/21/1707/11 documented as of this encounter
--- OUTSIDE RECORDS SUMMARY | 2024-06-04 20:49 | XMS_ITS | Encounter Summary ---
Author Organization [facility] Address [facility] [place] [address] Care Team Providers Care Costumed Character Entertainer Name Role Phone Bin Bowman MD Primary Care Provider [phone] Encounter Details Date Type Department Care Team (Late st Contact Info) Description 07/13/2017 Telephone Cardiology at [address] [address] Andi Sibley MD [facility] [place] [address] Social History Tobacco Use Types Packs/Day Years Used Date Smoking Tobacco: Former Cigarettes Smokeless Tobacco: Former Chew Sex and Gender Information Value Date Recorded Sex Assigned at Not on file Gender Identity Male 02/14/2021 11:07 PM EDT Sexual Orientation Not on file documented as of this encounter Miscellaneous Notes * Telephone Encounter - Andi Sibley V - 07/13/2017 9:13 AM EDT Images from the original note were not included. Telephone Triage Note Initial Contact Date: July 13, 2017 Initial contact time: 8:50 AM Referring Provider: Dr Mir Alcantar Patient Location: [facility] Presenting Symptoms per OSH: Woke up at 6 AM, chest pain radiating to neck, 10/10 slight improvement after his gave aspirin but persistent. In ER, was called in few minutes after ECG. Labs pending at this time. ECG consistent with inferior STEMI Past Medical History: Hypertension, Hyperlipidemia, ? Schizophrenia, Depression, morbid obesity Pertinent Diagnostic Findings: Vitals: BP 96/52 HR 54 SaO2 96% RA EKG : Inferior STEMI, NSR. Pl see below. All labs pending at this time OSH Interventions: As cut off for [facility] air transport was 159 kgs and pt weighs 174 Kgs, he will betransported via ground after tNK given. At this time, plan is to give tNK, 300 mg of Plavix, IV heparin and then transfer via ground. Probable ETA would be 10:30-11 AM Plan: Accepted to [facility] under Dr Amato. Will first go to cath lab manager unless lab is busy with another patient. Andi Sibley MD 9:18 AM July 13, 2017 Control Systems Designer Pager # [phone] documented in this encounter Plan of Treatment Upcoming Encounters Date Type Department Care Team (Latest Contact Info) Description 06/07/2024 2:00 PM EDT Office Visit Gastroenterology at [place] [phone] Joan Castro MD [facility] [place] [address] 06/11/2024 1:03 PM EDT Hospital Encounter Main Operating Room [place] [phone] Rachel Carrasco MD [facility] [place] [address] 06/11/2024 1:03 PM EDT - 06/11/2024 1:58 PM EDT Surgery Main Operating Room [place] [phone] Rachel Carrasco MD [facility] [place] [address] CYSTO, REMOVAL OF STENT, FOREIGN BODY OR CALCULUS, SIMPLE (WRVU 2.81) 06/23/2024 10:00 AM EDT Office Visit Cardiology at [address] [place] [address] Mo Horne MD [facility] [place] [address] Scheduled Procedures Name Priority Associated Diagnoses Date/Ti me CYSTO, REMOVAL OF STENT, FOR EIGN BODY OR CALCULUS, SIMPLE (WRVU 2.81) NEPHROLITHIASIS 06/11/2024 1:03 PM EDT documented as of this encounter Visit Diagnoses Not on filedocumented in this encounter Care Teams Costumed Character Entertainer Relationship Specialty Start Date End Date Bin Bowman MD [address] [place] [id number] PCP - General General Internal Medicine 04/21/1707/11 documented as of this encounter
--- OUTSIDE RECORDS SUMMARY | 2024-06-04 20:49 | XMS_ITS | Encounter Summary ---
Author Organization [facility] [place] [address] Care Team Providers Care Rodbuster Name Role Phone Bin Bowman MD Primary Care Provider Reason for Visit * Reason Comments GI Problem * Consultation (Routine) - Closed Specialty Diagnoses / Procedures Referred By Zeyad mishra Referred To Contact Gastroenterology Diagnoses GERD (gastroesophageal reflux disease) GERD, dyspepsia, intermittent LUQ pain for several months. Procedures Consultation - D requests copy of consultation note Bin Bowman MD [address] [place] [address] [facility] [place] [address] [address] Referral ID Status Reason Start Date Expiration Date V isits Requested Visits Authorized [id number] Closed Connection Center Consult, Test & Treat PCP Updated and/or Approved 04/22/2017 04/22/2018 1 1 Encounter Details Date Type Department Care Team (Latest Contact Info) Description 05/23/2017 12:00 PM EDT Office [place] [address] Breonna Ambrocio, MAIL CALLER [address] [place] [address] Gastroesophageal reflux disease, esophagitis presence not specified; Pyrosis; Epigastric pain; Lower abdominal pain Social History Tobacco Use Types Packs/Day Years Used Date Smoking Tobacco: Former Cigarettes Smokeless Tobacco: Former Chew Sex and Gender Information Value Date Recorded Sex Assigned at Not on file Gender Identity Male 02/14/2021 11:07 PM EDT Sexual Orientation Not on file documented as of this encounter Last Filed Vital Signs Vital Sign Reading Time Taken Comments Blood Pressure 142/74 05/23/2017 11:38 AM EDT Pulse 55 05/23/2017 11:38 AM EDT Temperature - - Respiratory Rate - - Oxygen Saturation - - Inhaled Oxygen Concentration - - Weight - - Height 167.6 cm (5' 6) 05/23/2017 11:38 AM EDT Body Mass Index - - documented in this encounter Patient Instructions * Patient Instructions* Breonna Ambrocio APRN - 05/23/2017 12:00 PM EDT 1. Small frequent meals 2. Avoid eating within 2-4 hours of bedtime 3. Lifeway kefir 1/2-1 cup per day. May use a probiotic containing lactobacillus, bifidobacteria, and saccharomyces strains if preferred. May use a probiotic containing lactobacillus, bifidobacteria,and saccharomyces strains if preferred. 4. Try FD Diana (menthol-diann oil). 5. Upper endoscopy 6. Farmer pH off medications 7. Stop famotidine 8. Pantoprazole 40mg once daily in the morning approximately 30-60 minutes prior to eating. 9. GIF approximately 3 weeks after upper endoscopy and Farmer pH documented in this encounter Progress Notes * Breonna Ambrocio APRN - 05/23/2017 12:00 PM EDT Exercise Planner: Breonna Ambrocio APRN PCP: Bin Bowman MD Requesting Provider: Bin Bowman MD Reason for Consultation This is a 46 y.o. male with a history significant for GERD, depression, anxiety, and bipolar disorder. I am seeing him as a new patient today in consult for refractory GERD symptoms. Time Spent With Patient 55 minutes of this 62 minute visit were spent in [id number] discussion and counseling the patientas detailed per below. HPI Here for heartburn and like someone [...] Was using carafate for a little while. [place] this helped. Had an EGD in September 2016. Was told everything is normal, although patient states he feels he would like another EGD done by a beading machine operator and not a general surgeon. Denies dysphagia, odynophagia, globus. Denies regurgitation, nausea, vomiting. Decreased appetite. Early satiety. Post-prandial bloating frequently. Denies chronic NSAID use. No anemia. Abdominal pain related to heartburn and bloating. Denies diarrhea and constipation. No cramping or urgency. No blood or mucus in stool. No anal or rectal pain. Will get chills in the felter tennis balls or late at night. Triggers: Coffee Diet Reviewed: Breakfast; oatmeal Lunch; ramen noodles, burger Dinner; chicken/pork, starch/vegetable. Pizza Coffee/Tea: tea with honey Soda/Juice/Sugary Beverages: none. Stopped drinking soda approximately one month ago. Calcium: yogurt Food allergies: none Sleep: snores, usually feels well rested. ROS Notable for the gastrointestinal symptoms as described above. CONSTITUTIONAL: Denies anorexia, fever, or unintended weight change EYES: Denies red or painful eyes ENT: Denies oral ulcers, dysphagia, odynophagia, globus. RESPIRATORY: Denies cough, shortness of breath, wheezing CV: See HPI. Denies palpitations. : Recent UTI and candidal infection after ABX. Denies dysuria, urinary incontinence, or dyspareunia. MUSC/SKELETAL: Bilateral knee issues. Denies chronic joint pains or history of inflammatory arthritis. INTEGUMENTARY: Dry skin. Denies recent skin rash or lesions. NEURO: Denies neuropathy, loss of sensation, facial drooping or unilateral weakness. PSYCH: Denies psychiatric problems. ENDO: Denies frequent urination and excessive hunger or thirst. HEM/LYMPH: Denies easy bleeding or bruising. ALL/IMMUNO: Sinus allergies. Denies frequent colds. Allergies Allergies Allergen Reactions ??? Gabapentin ??? Wellbutrin [Bupropion Hcl] ??? Zoloft [Sertraline] Current Medications Medications reviewed and reconciled in e-DH Medical History Non-contributory Surgical History 1. T & A Social [...] helpful 4. Omeprazole; not helpful Physical Exam: Vitals: 05/23/17 1138 BP: 142/74 Pulse: 55 Height: 5'6 GENERAL: Healthy-appearing in no acute distress. Appears stated age. Over nourished. SKIN: Many tattoos. No lesions, rashes, lumps, or angiomas on exposed skin. NECK: No adenopathy. No thyromegaly. HEENT: PERRL, EOMI, mucosa clear without ulceration or lesions, normal Dentition LUNGS: Clear to auscultation bilaterally COR: Regular, normal S1 and S2 without murmurs. ABD: Normal active BS. Soft, non-distended. No bruits. No tenderness to deep palpation in all 4 quadrants. No organomegaly. EXT: No cyanosis, clubbing, or edema. NEURO: Alert and oriented to person, place, time, and situation. Cranial nerves II-XII intact. PSYCH: Mood appropriate. Good eye contact. Normal interaction. Answers all questions appropriately. Labs: Labs unremarkable. Available in Scan Doc. Hgb 17 Impression/Recommendations This is a very nice 46 year old man with a history of bipolar disorder who comes in to me today in consult for refractory GERD symptoms. His symptoms first began after starting gabapentin for his bipolar disorder. Typical reflux symptoms with some dyspepsia. Partial response to PPI. Also taking famotidine. His EGD in September 2016 was normal. No warning signs. No lower GI symptoms. He has been changing his diet and lifestyle with significant weight loss. We discussed the pathophysiology of reflux symptoms including acid reflux, non-acid reflux, and visceral hypersensitivity. We reviewed diagnostic and treatment options with an emphasis on repeat upper endoscopy and Farmer pH. PPI therapy was reviewed. Teaching was provided with regard to the timing of medication administration and side effects. We reviewed GERD diet and lifestyle modifications. Ddx: GERD, bile reflux, visceral hypersensitivity, dyspepsia. 1. GERD diet and lifestyle modifications. Continue losing weight. 2. Upper endoscopy 3. Farmer pH off medications 4. Pantoprazole 40mg once daily in the morning on an empty stomach approximately 30-60 minutes before eating the first meal of the day. May use TUMs or gaviscon for breakthrough symptoms. 5. FD Diana on an empty stomach up to four times daily as needed. Samples provided. 6. Lifeway kefir 1/2-1 cup per day. May use a probiotic containing lactobacillus, bifidobacteria, and saccharomyces strains if preferred. 7. Stop famotidine 8. GIF approximately 3 weeks after testing. I have provided him with my contact information. He has been encouraged to contact me with any questions or concerns. Signed, Breonna Ambrocio APRN 05/23/17 2:12 PM Section of Gastroenterology & Hepatology [facility] ?? documented in this encounter Plan of Treatment Upcoming Encounters Date Type Department Care Team (Latest Contact Info) Description 06/07/2024 2:00 PM EDT Office [place] [address] Joan Castro MD [facility] [place] [address] 06/11/2024 1:03 PM EDT Hospital Encounter [place] [phone] Rachel Carrasco MD [facility] [place] [address] 06/11/2024 1:03 PM EDT - 06/11/2024 1:58 PM EDT Surgery [place] [phone] Rachel Carrasco MD [facility] [place] [address] CYSTO, REMOVAL OF STENT, FOREIGN BODY OR CALCULUS, SIMPLE (WRVU 2.81) 06/23/2024 10:00 AM EDT Office Visit Cardiology at [address] [place] [address] Mo Horne MD [facility] [place] [address] Scheduled Procedures Name Priority Associated Diagnoses Date/Ti me CYSTO, REMOVAL OF STENT, FOR EIGN BODY OR CALCULUS, SIMPLE (WRVU 2.81) NEPHROLITHIASIS 06/11/2024 1:03 PM EDT documented as of this encounter Visit Diagnoses Diagnosis Gastroesophageal reflux disease, esophagitis presence not specified Pyrosis Heartburn Epigastric pain Abdominal pain, epigastric Lower abdominal pain Abdominal pain, other specified site documented in this encounter Care Teams Rodbuster Relationship Specialty Start Date End Date Bin Bowman MD [address] [place] [address] PCP - General General Internal Medicine 04/21/1707/11 documented as of this encounter
--- OUTSIDE RECORDS SUMMARY | 2024-06-04 20:49 | XMS_ITS | Encounter Summary ---
Author Organization [facility] Address [facility] [place] [address] Care Team Providers Care Client Advisor Name Role Phone Bin Bowman MD Primary Care Provider Encounter Details Date Type Department Care Team (Late st Contact Info) Description 07/13/2017 External [place] [phone] Andi Sibley MD [facility] CARDIOLOGY DEPT [place], [place] [phone] Social History Tobacco Use Types Packs/Day Years [...] 2:00 PM EDT Office [place] [address] Joan Castro MD [facility] GASTROENTEROLOGY [place], [place] [phone] 06/11/2024 1:03 PM EDT Hospital Encounter [place] [address] Rachel Carrasco MD [facility] [place] [address] 06/11/2024 1:03 PM EDT - 06/11/2024 1:58 PM EDT Surgery Main Operating Room [facility] [place] [address] Rachel Carrasco MD [facility] [place] [address] CYSTO, REMOVAL OF STENT, FOREIGN BODY OR CALCULUS, SIMPLE (WRVU 2.81) 06/23/2024 10:00 AM EDT Office Visit Cardiology at [address] [phone] Mo Horne MD [facility] [place] [address] Scheduled Procedures Name Priority Associated Diagnoses Date/Ti me CYSTO, REMOVAL OF STENT, FOR EIGN BODY OR CALCULUS, SIMPLE (WRVU 2.81) NEPHROLITHIASIS 06/11/2024 1:03 PM EDT documented as of this encounter Procedures Procedure Name Priority Date/Time Associated Diagnosis Comments ECG SCAN Routine 07/13/2017 ECG SCAN Routine 07/13/2017 documented in this encounter Results * Scan Doc: ECG (07/13/2017) Andi Grijalva MD MEDIA MGR SCAN EXT ORDR/RSLT * Scan Doc: ECG (07/13/2017) MD TERI Montenegro MGR SCAN EXT ORDR/RSLT documented in this encounter Visit Diagnoses Not on filedocumented in this encounter Care Teams Client Advisor Relationship Specialty Start Date End Date Bin Bowman MD [address] [place] [address] PCP - General General Internal Medicine 04/21/1707/11 documented as of this encounter
--- OUTSIDE RECORDS SUMMARY | 2024-06-04 20:49 | XMS_ITS | Encounter Summary ---
Author Organization [facility] Address [facility] [place] [address] Care Team Providers Care Brim Curler Name Role Phone Bin Bowman MD Primary Care Provider Encounter Details Date Type Department Care Team (Late st Contact Info) Description 07/13/2017 Orders Only Cardiology at [address] [phone] Andi Sibley MD [facility] [place] [address] Social History Tobacco Use Types Packs/Day Years [...] 2:00 PM EDT Office [place] [address] Joan Castro MD [facility] [place] [address] 06/11/2024 1:03 PM EDT Hospital Encounter [place] [address] Rachel Carrasco MD [facility] [place] [address] 06/11/2024 1:03 PM EDT - 06/11/2024 1:58 PM EDT Surgery Main Operating Room [facility] [place] [phone] Rachel Carrasco MD [facility] [place] [address] CYSTO, REMOVAL OF STENT, FOREIGN BODY OR CALCULUS, SIMPLE (WRVU 2.81) 06/23/2024 10:00 AM EDT Office Visit Cardiology at [address] [phone] Mo Horne MD [facility] [place] [place] [address] Scheduled Orders Name Type Priority Associated Diagnoses Order Schedule Cardiac Catheterization Cardiac Cath Routine One Time for 1 Occurrences starting 07/13/2017 until 07/13/2017 Scheduled Procedures Name Priority Associated Diagnoses Date/Ti me CYSTO, REMOVAL OF STENT, FOR EIGN BODY OR CALCULUS, SIMPLE (WRVU 2.81) NEPHROLITHIASIS 06/11/2024 1:03 PM EDT documented as of this encounter Visit Diagnoses Not on filedocumented in this encounter Care Teams Brim Curler Relationship Specialty Start Date End Date Bin Bowman MD [address] [place] [address] PCP - General General Internal Medicine 04/21/1707/11 documented as of this encounter
== END 2024-06-04 20:33 | disposition home or self-care (01) ==
LOC: NCHCN 20:32
PROVIDERS: PCP Internal Medicine; Visit Provider Physician Assistant
DX: R82.998 Other abnormal findings in urine (principal); M54.89 Other dorsalgia
CPT/HCPCS: 87086

== ENCOUNTER 2024-06-17 22:08 | Outpatient (REF) | payer MEDICAID, SELFPAY ==
--- OUTSIDE RECORDS SUMMARY | 2024-06-17 22:16 | XMS_ITS | Encounter Summary ---
Author Organization [facility] Address [address] [place] [address] Care Team Providers Care Customer Support Executive Name Role Phone Unavailable Primary Care Provider Unavailabl e Encounter Details Date Type Department Care Team (Late st Contact Info) Description 05/07/2020 Lab Requisition [facility] Pathology & Laboratory Medicine - [facility] [address] [place] [address] Outr Resulting Lab, Provider Social History Tobacco [...] Outr Resulting Lab MICROBIOLOGY - GENERAL ORDERABLES [facility] [address] [place] [address] * COVID-19 TESTING (05/07/2020 5:10 EDT) COVID-19 rt-PCR Result Negative Negative 05/07/2020 20:19 EDT [facility] Comment: This test has not [...] history, and epidemiological information. Performed on the [employer] Fusion instrument Performing Lab [place] [facility] Lab 05/07/2020 20:19 EDT [facility] Swab 05/07/2020 5:10 EDT 05/07/2020 16:11 EDT Provider Outr Resulting Lab MICROBIOLOGY - GENERAL ORDERABLES [facility] [address] [place] [address] documented in this encounter Visit Diagnoses Not on filedocumented in this encounter
--- OUTSIDE RECORDS SUMMARY | 2024-06-17 22:16 | XMS_ITS | Encounter Summary ---
Author Organization [facility] Address [facility] [place] [address] Care Team Providers Care Fish Liver Sorter Name Role Phone Amira Hooks Primary Care Provider Encounter Details Date Type Department Care Team (Latest Contact Info) Description 06/07/2024 Travel Social History Tobacco Use Types Packs/Day [...] Upcoming Encounters Date Type Department Care Team (Late st Contact Info) Description 06/23/2024 10:00 AM EDT Office Visit Cardiology at [address] [phone] Mo Horne MD [facility] [address] 09/21/2024 10:[address] [place] [place] [phone] Rachel Carrasco MD [facility] [place] [address] 09/21/2024 11:00 AM EST [place] [phone] Rachel Carrasco MD [facility] [place] [address] documented as of this encounter Visit Diagnoses Not on filedocumented in this encounter Care Teams Fish Liver Sorter Relationship Specialty Start Date End Date Amira Hooks PA [address] [place] [phone] PCP - General Family Medicine 07/25/22 documented as of this encounter
--- OUTSIDE RECORDS SUMMARY | 2024-06-17 22:16 | XMS_ITS | Encounter Summary ---
Author Organization [facility] Address [address] [place] [address] Care Team Providers Care Chief School Finance Officer Name Role Phone Unavailable Primary Care Provider Unavailabl e Encounter Details Date Type Department Care Team (Late st Contact Info) Description 04/16/2021 Lab Requisition [facility] Pathology & Laboratory Medicine - [facility] [address] [place] [address] Outr Resulting Lab, Provider Social History Tobacco [...] [facility] [address] [place] [address] * COVID-19 TESTING (04/16/2021 11:00 EDT) COVID-19 rt-PCR Result Negative Negative 04/17/2021 1:26 EDT [facility] [...] history, and epidemiological information. Performed on the Provident Linkher Fusion instrument Performing Lab [place] [facility] Lab 04/17/2021 1:26 EDT [facility] Swab 04/16/2021 11:0 0 EDT 04/16/2021 20:37 EDT Provider Outr Resulting Lab MICROBIOLOGY - GENERAL ORDERABLES [facility] [address] [place] [address] documented in this encounter Visit Diagnoses Not on filedocumented in this encounter
--- OUTSIDE RECORDS SUMMARY | 2024-06-17 22:16 | XMS_ITS | Encounter Summary ---
Author Organization [facility] Address [facility] [place] [address] Care Team Providers Care Felling Bucking Supervisor Name Role Phone Amira Hooks Primary Care Provider Reason for Visit * Reason Onset Date Comments Medication Refill 06/09/2024 Encounter Details Date Type Department Care Team (Late st Contact Info) Description 06/09/2024 Refill [place] [address] Joan Castro MD [facility] [place] [address] Chronic constipation Social History Tobacco Use Types Packs/Day Years Used Date Smoking Tobacco: Former Cigarettes 1.5 15 1 - 2009 Smokeless Tobacco: Former Chew Quit: 2013 Alcohol Use Standard Drinks/Week Comments No 0 (1 standard drink = 0.6 oz pur e alcohol) [facility] Inpatient Questions Answer Date Recorded Does Anyone [...] AM EDT Office Visit Cardiology at [address] [place] [address] Mo Horne MD [facility] [place] [address] 09/21/2024 10:[address] [place] [phone] Rachel Carrasco MD [place] [address] 09/21/2024 11:00 AM EST Office [place] [phone] Rachel Carrasco MD [facility] [place] [address] documented as of this encounter Visit Diagnoses Diagnosis Chronic constipation Unspecified constipation documented in this encounter Care Teams Felling Bucking Supervisor Relationship Specialty Start Date End Date Amira Hooks PA [address] [place] [address] PCP - General Family Medicine 07/25/22 documented as of this encounter
--- OUTSIDE RECORDS SUMMARY | 2024-06-17 22:16 | XMS_ITS | Clinical Summary ---
Author Organization [facility] Address [facility] [place] [address] Care Team Providers Care Knocker Out Name Role Phone Amira Hooks Primary Care [...] 3 times daily as needed. 06/03/2023 Active potassium chloride ER (Klor-Con, K-Tab) 10 mEq ER tablet Take 4 tablets by mouth Daily at Noon. 10/31/2023 Active ipratropium (ATROVENT) 21 mcg (0.03 %) [place], Non-Aerosol INSTILL 2 SPRAYS VIA NOSTRILS AT BEDTIME 09/18/2023 Active sucralfate (Carafate) 1 gram tabletIndications:Dy spepsia [...] every 4 hours. 15 tablet 04/10/2024 Active prucalopride (Motegrity) 2 mg tabletIndications:Ch ronic constipation Take 1 tablet by mouth daily. 90 tablet 3 06/09/2024 Active phenazopyridine (Pyridium) 200 mg tablet Take 1 tablet by mouth 3 times daily as needed for Pain. 9 tablet 06/11/2024 Active Active Problems Problem Noted Date Diagnosed Date Intestinal metaplasia of gastric mucosa 06/07/20 Abdominal bloating 06/07/2024 Chronic constipation 06/07/2024 Screening for colon cancer 06/07/2024 Small intestinal bacterial overgrowth (SIBO) Gastroesophageal reflux disease 11/28/2023 Obstructive sleep apnea syndrome 09/18/2022 Dyspepsia 09/18/2022 Atrial flutter 02/14/2021 Bipolar disorder 01/03/2021 SVT (supraventricular tachycardia) 12/21/2020 Overview (12/21/2020): Added automatically from request for surgery [id number] PAF (paroxysmal atrial fibrillation) 12/21/2020 Overview (01/02/2021): Added automatically from request for surgery [id number] Flutter-fibrillation 2020 Atrial fibrillation 11/28/2020 H/O cardiac radiofrequency ablation 07/10/2020 Coronary disease 07/29/2019 Overview (07/29/2019): ?? 2017: STEMI. PCI of OM1. EF 60%. Many ER visits to [facility] after this. Heart palpitations 07/29/2019 Obesity 07/29/2019 Essential hypertension 07/29/2019 Encounters Date Type Department Care Team Description 06/17/2024 Travel 06/15/2024 1:30 PM EDT Clinical [place] [address] Arrived 06/15/2024 Travel 06/11/2024 5:41 PM EDT - 06/11/2024 6:36 PM EDT Surgery [place] [phone] Rachel Carrasco MD CYSTO, REMOVAL OF STENT, FOREIGN BODY OR CALCULUS, SIMPLE (WRVU 2.81) 06/11/2024 5:27 PM EDT Anesthesia [place] [phone] Larissa Rollins MD Morley, Benjamin D, MD 06/11/2024 4:14 PM EDT - 06/11/2024 7:41 PM EDT Hospital Encounter Same Day Program at [place] [address] Rachel Carrasco MD Discharge Disposition: Home 06/11/2024 Orders Only Urology [place] [address] Abelino Lazar MD Nephrolithiasis 06/09/2024 Refill Gastroenterology at [place] [address] Joan Castro MD Chronic constipation 06/07/2024 2:00 PM EDT Office Visit Gastroenterology at [place] [address] Joan Castro MD Screening for colon cancer; Chronic constipation; Abdominal bloating; Intestinal metaplasia of gastric mucosa; Dyspepsia; Heartburn 06/07/2024 Travel 06/07/2024 Refill Gastroenterology at [place] [address] Joan Castro MD Chronic constipation 06/04/2024 Telephone Urology at [place] [address] Jose Juan Anton MD 06/04/2024 Telephone Urology at [place] [address] Michelle Reed, RN 06/04/2024 [place] [address] Xenia Mcrae, FLAVIA 06/02/2024 Telephone Urology [place] [phone] Shai Mckeon PA 06/01/2024 Travel 05/24/2024 7:39 AM EDT Anesthesia Event Main Operating Room [place] [phone] Ursula Nolan MD Bloom, Charlotte E, DO 05/24/2024 7:30 AM EDT - 05/24/2024 9:45 AM EDT Surgery Main Operating Room [place] [address] Rachel Carrasco MD CYSTOURETEROSCOPY,DIAG NOSTIC,W/ LITHOTRIPSY INC. INSERTION OF INDWELLING URETERAL STENT (WRVU 8) 05/24/2024 6:15 AM EDT - 05/24/2024 11:03 AM EDT Hospital Encounter Same Day Program at [place] [address] Rachel Carrasco MD Nephrolithiasis Discharge Disposition: Home 05/21/2024 Telephone Urology at [place] [address] Michelle Reed RN 05/21/2024 Telephone Urology at [place] [address] Jose Juan Anton MD 05/17/2024 Telephone Urology at [place] [address] Xenia Mcrae RN 05/14/2024 Telephone Urology at [place] [address] Arron Sparks MD 05/03/2024 Orders Only Urology [place] [address] Abelino Lazar MD 04/27/2024 Orders Only Urology at [place] [address] Nathen Yanez MD 04/27/2024 Telephone Urology at [address] Michelle Reed RN 04/14/2024 Telephone Urology at [place] [phone] Xenia Mcrae RN 04/12/2024 Telephone Urology at [place] [phone] Xenia Mcrae, FLAVIA 04/10/2024 Telephone Urology [place] [phone] Carlos Redd MD 04/09/2024 2:11 PM EDT - 04/09/2024 11:59 PM EDT Hospital Encounter XRay at [address] [place] [address] Rachel Carrasco MD Discharge Disposition: Home 04/09/2024 11:48 AM EDT - 04/09/2024 2:11 PM EDT Surgery Main Operating Room [place] [phone] Rachel Carrasco MD CYSTO, STENT PLACEMENT (WRVU 2.82) 04/09/2024 11:16 AM EDT Anesthesia Event Main Operating Room [place] [phone] Amarjit Beth MD [place], Ann O, CRNA 04/09/2024 10:00 AM EDT - 04/09/2024 1:48 PM EDT Hospital Encounter Same Day Program at [place] [phone] Rachel Carrasco MD Hematuria, unspecified type Discharge Disposition: Home 04/09/2024 Telephone Urology [place] [phone] Carlos Redd MD 04/09/2024 Telephone Urology at [place] [phone] Xenia Mcrae, FLAVIA 04/09/2024 Orders Only Urology [place] [phone] Abelino Lazar MD Nephrolithiasis 04/08/2024 [place] [address] Xenia Mcrae RN 04/02/2024 [place] [address] Michelle Reed RN 04/01/2024 [place] [address] Michelle Reed RN 03/31/2024 [place] [address] Joss Johnson, industrial engineering director (Flank pain) 03/31/2024 [place] [address] Joss Johnson RN 03/24/2024 [place] [address] Rachel Carrasco MD from Last 3 Months Family History Medical [...] Your Home? unable to answer (comment required) 06/11/2024 Feels Threatened by Someone unable to an swer (comment required) 06/11/2024 Feels Unsafe at Home or Work/School unab le to answer (comment required) 06/11/2024 Physical Signs of Abuse Present no 06/11/2024 Sex and Gender Information Value Date Recorded Sex Assigned at Not on file Gender Identity Male 02/14/2021 11:07 PM EDT Sexual Orientation Not on file Last Filed Vital Signs Vital Sign Reading Time Taken Comments Blood Pressure 128/55 06/11/2024 7:15 PM EDT Pulse 93 06/11/2024 4:28 PM EDT Temperature 36.8 ??C (98.2 ??F) 06/11/2024 7:15 PM ED T Respiratory Rate 16 06/11/2024 7:15 PM EDT Oxygen Saturation 95% 06/11/2024 7:15 PM EDT Inhaled Oxygen Concentration - - Weight 212 kg (467 lb 6.4 oz) 06/11/2024 4:28 PM EDT Height 167.6 cm (5' 6) 06/11/2024 4:28 PM EDT Body Mass Index 75.44 06/11/2024 4:28 PM EDT Plan of Treatment Upcoming Encounters Date Type Department Care Team (Late st Contact Info) Description 06/23/2024 10:00 AM EDT Office Visit Cardiology at [address] [phone] Mo Horne MD [facility] [place] [address] 09/21/2024 10:[address] [place] [phone] Rachel Carrasco MD [facility] [place] [address] 09/21/2024 11:00 AM EST Office [place] [phone] Rachel Carrasco MD [facility] [place] [address] Health Maintenance Due Date Last Done Comments CT Colonography 1969 Colonoscopy 1969 Colorectal Cancer Screening 1969 FIT DNA 1969 FIT 1969 Sigmoidoscopy (10 year) with FIT yearly 1969 Sigmoidoscopy 1969 HIV screen 1987 Hepatitis C Screening 1987 Hepatitis B vaccine (0-59 yrs) (1) 1988 Tdap adult 1988 Tetanus vaccine 1988 Zoster vaccine (1 of 2) 2019 Covid-19 Vaccine (1 - 2022-2 4 season) 2023 Influenza (Flu) vaccine (1 o f 1 - Influenza standard series) 07/11/2024 Diabetes Screening (HgbA1C o r Glucose) 01/04/2027 01/04/2024, 04/06/2023, 12/26/2021, Additional history exists Medical Devices Implanted Type Area Pulp Grinder And Blender Device Identifier Shelf Expiration Date Model / Serial / Lot Stent Ureteral [id number] Dbl Pgtl Soft Ptfe Tria ([id number]) - [id number] Implanted:Qty : 1 on 04/09/2024 by Rachel Carrasco MD at [facility] IMPLANTS Right: Ureter [employer] 10/16/2026 [id number] / / [id number] Stent Ureteral [id number] Dbl Pgtl Firm Ptfe Tria ([id number]) - [id number] Implanted:Qty : 1 on 05/24/2024 by Rachel Carrasco MD at [facility] IMPLANTS Right: Ureter [employer] 10/16/2026 [id number] / / [id number] Procedures Procedure Name Priority Date/Time Associated Diagnosis Comments Cystoscopy, Remv Calculus, Simple ([id number]) 06/11/2024 5:26 PM EDT NEPHROLITHIASIS XR FLUORO NO RAD <1HR - OR USE Routine 05/24/2024 9:46 AM EDT SPECIMEN TO PATHOLOGY Routine 05/24/2024 9:23 AM EDT KIDNEY STONE ANALYSIS Routine 05/24/2024 9:23 AM EDT MODIFIER HOLMIUM LASER Yes 05/24/2024 7:38 AM EDT Nephrolithiasis Cysto/Ureteroscopy W/Lithotripsy Inc Indwelling Stent Insertion ([id number]) Yes 05/24/2024 7:38 AM EDT Nephrolithiasis POCT GLUCOSE Routine 05/24/2024 6:44 AM EDT CYSTOURETEROSCOPY,DI AGNOSTIC,W/ LITHOTRIPSY INC. INSERTT Routine 05/24/2024 6:16 AM EDT Nephrolithiasis IMPLANTABLE DEVICES SCAN 05/24/2024 12:00 AM EDT LAB SCAN 05/20/2024 12:00 AM EDT XR FLUORO NO RAD <1HR - OR USE Routine 04/09/2024 2:12 PM EDT Cystoscopy, Insert Ureteral Stent ([id number]) Yes 04/09/2024 11:16 AM EDT LEFT URETERAL STONE/HEMATURIA WORK UP CREATININE Routine 04/09/2024 11:01 AM EDT Hematuria, unspecified type IMPLANTABLE DEVICES SCAN 04/09/2024 12:00 AM EDT BASIC METABOLIC PANEL STAT 01/04/2024 12:38 PM EST from Last [...] (05/24/2024 9:23 AM EDT) Kidney Stone Analysis (MAY) Test ? Result ?Flag ??Unit ??RefValue ------- [...] developed and its performance characteristics ?determined by [facility] in a manner consistent with CLIA ?requirements. This test has not been cleared or approved by ?the U.S. Food and Drug Administration. ?Test Performed by: ?[facility] ?[address] [place] [id number] ?Body Man: Pippa Traore Ph.D.; CLIA# [id number] [facility] Calculus Other / Unknown 05/24/2024 9 :23 AM EDT 05/24/2024 3:58 PM EDT Narrative Resulting Agency Comment Spec In Lab Rachel Carrasco MD LAB SEND OUT ORDERAB LES [facility] [place] [address] * Specimen to Pathology (05/24/2024 9:23 AM EDT) AP Specimen 05/24/2024 9:23 AM EDT 05/24/2024 9:23 AM EDT Narrative [facility] - 05/24/2024 9:23 AM EDT Specimen requisition ordered. ??Separate Pathology report to follow Rachel Carrasco MD PATHOLOGY/CYTOLOGY O [place] Performing Organization Address [facility] Co de Phone Number [facility] [place] [address] * POCT Glucose (05/24/2024 6:44 AM EDT) Glucose, POC 116 65 - 199 mg/dL [facility] Comment: Supplemental ranges: <140 mg/dL before meals <180 mg/dL all other times of the day Blood 05/24/2024 6:44 AM EDT 05/24/2024 6:44 AM EDT Rachel Carrasco MD POINT OF CARE TEST O [place]IANA Performing Organization Address [facility] Co de Phone Number [facility] [place] [address] * Scan Doc: Implantable Devices (05/24/2024 12:00 [...] EDT) Creatinine 0.88 0.80 - 1.50 mg/dL [facility] Est Glomerular Filtration Rate 102 >=60 mL/min/1. 73 m?? [facility] Comment: This patient's estimated GFR [...] In Lab Rachel Carrasco MD CHEMISTRY ORDERABLES [facility] [place] [address] * Scan Doc: Implantable Devices (04/09/2024 12:00 AM EDT) Narrative 04/09/2024 12:00 AM EDT Ordered by an unspecified provider. Scanning Provider MEDIA MGR SCAN EXT O RDR/RSLT * Basic Metabolic Panel (non-fasting) (01/04/2024 12:38 PM EST) Glucose 119 65 - 199 mg/dL [facility] Comment:Diabetes: >=200 mg/d L plus symptoms Blood Urea Nitrogen 10 10 - 20 mg/dL [facility] Creatinine 0.82 0.80 - 1.50 mg/dL [facility] Sodium 142 135 - 145 mmol/L [facility] Potassium 4.4 3.5 - 5.0 mmol/L [facility] Comment: Please note: ??Patients with WBC >100,000 may have falsely elevated Potassium levels. ??For accurate Potassium quantification in these patients send serum separator tube (gold top) for subsequent determinations. ??Contact the Clinical Chemistry Laboratory if there are any questions. Chloride 105 98 - 107 mmol/L [facility] Carbon Dioxide 26 22 - 31 mmol/L [facility] Anion Gap 11 5 - 15 mmol/L [facility] Calcium 9.7 8.5 - 10.5 mg/dL [facility] Est Glomerular Filtration Rate 104 >=60 mL/min/1. 73 m?? [facility] Comment: This patient's estimated GFR [...] Pieter Rios III, MD CHEMISTRY ORDERABL ES [facility] [place] [address] from Last 3 Months or Most Recently Relevant to Health Maintenance Advance Directives Documents on File Type Date Recorded Patient Menhaden Vessel Pilot Expl anation Personal Menhaden Vessel Pilot 06/17/2024 2:17 PM montrell manpreet * Attempt Cardiopulmonary Resuscitation - Inpatient (Latest [...] Status decision made by: Patient Care Teams Knocker Out Relationship Specialty Start Date End Date Amira Hooks PA [address] [address] PCP - General Family Medicine 07/25/22
--- OUTSIDE RECORDS SUMMARY | 2024-06-17 22:16 | XMS_ITS | Clinical Summary ---
Author Organization [facility] Address [address] [place] [address] Care Team Providers Care Wheel And Caster Repairer Name Role Phone Unavailable Primary Care Provider [...]
--- OUTSIDE RECORDS SUMMARY | 2024-06-17 22:16 | XMS_ITS | Encounter Summary ---
Author Organization [facility] Address [facility] [place] [address] Care Team Providers Care Aerophysics Engineer Name Role Phone Amira Hooks Primary Care Provider Encounter Details Date Type Department Care Team (Latest Contact Info) Description 06/15/2024 Travel Social History Tobacco Use Types Packs/Day [...] AM EDT Office Visit Cardiology at [address] [phone] Mo Horne MD [facility] [place] [address] 09/21/2024 10:[address] [place] [place] [phone] Rachel Carrasco MD [facility] [place] [address] 09/21/2024 11:00 AM EST [place] [phone] Rachel Carrasco MD [facility] [place] [address] documented as of this encounter Visit Diagnoses Not on filedocumented in this encounter Care Teams Aerophysics Engineer Relationship Specialty Start Date End Date Amira Hooks PA [address] [place] [id number] PCP - General Family Medicine 07/25/22 documented as of this encounter
--- OUTSIDE RECORDS SUMMARY | 2024-06-17 22:16 | XMS_ITS | Encounter Summary ---
Author Organization [facility] [place] [address] Care Team Providers Care Punch Out Crew Member Name Role Phone Amira Hooks Primary Care Provider [phone] Reason for Visit * Auth/Cert (Routine) Specialty Diagnoses / Procedures Referred By Zeyad mishra Referred To Contact Diagnoses Nephrolithiasis NEPHROLITHIASIS Procedures PRO CYSTOSCOPY, REMV CALCULUS, SIMPLE CYSTO, REMOVAL OF STENT, FOREIGN BODY OR CALCULUS, SIMPLE (WRVU 2.81) Rachel Carrasco MD [facility] [place] [address] [facility] Referral ID Status Reason Start Date Expiration Date Visits Re quested Visits Authorized [id number] 1 1 Encounter Details Date Type Department Care Team (Late st Contact Info) Description 06/11/2024 5:27 PM EDT Anesthesia Event [place] [address] Larissa Rollins MD [facility] [place] [address] Jude Jenkins MD [facility] [place] [address] Anesthesia Record Procedure Summary Procedure Name Responsible Anesthesiologist Anesthesia Start Time Anesthesia Stop Time CYSTO, REMOVAL OF STENT, FOREIGN BODY OR CALCULUS, SIMPLE (WRVU 2.81) (Right: Ureter) Larissa Rollins MD 06/11/24 1727 06/11/24 1821 Events Date Time Event Comment 06/11/2024 1656 1727 AN Verify 1727 Start 1727 An Start Data 1738 An Induction 1740 An Intubation 1742 Anesthesia Ready 181 Extubation/LMA Out 181 an stop data 182 Recovery or ICU Handoff Kacey ent care was transferred to the destination unit staff after review of the patient's medical history, current anesthetic/surgical status and plan, according to the Provider Handoff Checklist. 182 Stop Meds Name Total propofoL 200 mg ondansetron 4 mg succinylcholine 200 mg ceFAZolin (Ancef) 2 g vial attach to sod ium chloride 0.9% 100 mL Mini-Bag Plus 3 g lactated ringers 300 mL * Agents Name O2 * Blood No blood administrations on file. Lines, Drains, and Airways Type Details Placement Removal Urethral Catheter indwelling double carlitos men catheter; silastic; 16; 1; 5; 5; drainage bag 06/11/24 1802 by Incision 06/11/24; 1753; penis 06/11/24 1 753 by Aileen Thapa RN Incision 05/24/24; 0828; peni s; 06/11/24 (removed prior to entering the OR); 1753 05/24/24 0828 by Ivonne Fuentes RN 06/11/24 1753 by Aileen Thapa RN PIV 06/11/24; 1637; 20 g auge; median cubital vein (antecubital fossa), left; Anatomical Landmarks; intradermal injection, appears comfortable, tolerated well; 0; 06/11/24; 1937 06/11/24 163 by Zeus Norris RN 06/11/24 193 by Christina Longoria, RN ETT Mask Ventilation: No t Attempted (0); ETT Type: Cuffed, Oral; Indirect: Video; Notes: Asleep, Pre-O2, Stylette; Attempts: 1; Laryngoscopy Grade: 2; ETT Placement Verified By: Auscultation, Capnometry, Visual; Secured at Teeth: 24 cm; Inserted by: marysol; Removal Date: 06/11/24; Removal Time: 181106/11/24 1740 by Arturo Max CRNA 06/11/241811 by Arturo Max CRNA documented in this encounter Social History [...] OR Notes * Anesthesia Postprocedure Evaluation - Larissa Rollins MD - 06/11/2024 6:57 PM EDT Department of Anesthesiology Post-procedure Note Patient: Rolo Aguilar Procedure Summary Date: 06/11/24 Room / Location: [facility] OR [address] [place] [address] MAIN OR Anesthesia Start: 1726 Anesthesia Stop: 1820 Procedure: CYSTO, REMOVAL OF STENT, FOREIGN BODY OR CALCULUS, SIMPLE (WRVU 2.81) (Right: Ureter) Diagnosis: (NEPHROLITHIASIS) Surgeons: Rachel Carrasco MD Responsible Provider: Larissa Rollins MD Anesthesia Type: general ASA Status: 3 All Anesthesia Providers: Anesthesiologist: Ursula Nolan MD; Larissa Rollins MD COLOR DEVELOPER: Álvaro Henry CRNA Vitals Value Taken Time BP 150/78 06/11/24 1845 Temp 36.1 ??C (97 ??F) 06/11/24 1815 Pulse Resp 16 06/11/24 1815 SpO2 95 % 06/11/24 1856 Pain Level 0 06/11/24 1830 Vitals shown include unfiled device data. Patient Location: PACU/SDP Level of Consciousness: Conscious but Sleepy Pain Management: Satisfactory Analgesia PONV: None Cardiovascular Status: At Baseline Respiratory Status: At Baseline Postoperative Fluid Status: Intravascular EUvolemia Possible Anesthetic Complications: NONE apparent at time of evaluation Final Primary Anesthesia Type: General (The anesthetic type performed was the same as planned.) Comments: * Anesthesia Preprocedure Evaluation - Ursula Nolan MD - 06/11/2024 11:18 AM EDT Images from the original note were not included. Pre-Anesthesia Evaluation for: Rolo Aguilar a 53 y.o. male. Procedure(s): CYSTOURETEROSCOPY,DIAGNOSTIC,W/ LITHOTRIPSY INC. INSERTION OF INDWELLING URETERAL STENT (WRVU 8) MODIFIER HOLMIUM LASER Patient Active Problem List Diagnosis Date Noted ??? Intestinal metaplasia of gastric mucosa 06/07/2024 ??? Abdominal bloating 06/07/2024 ??? Chronic constipation 06/07/2024 ??? Screening for colon cancer 06/07/2024 ??? Small intestinal bacterial overgrowth (SIBO) 03/02/2024 [...] Procedure Laterality Date ??? CHOLECYSTECTOMY ??? PRO CYSTO/URETEROSCOPY W/LITHOTRIPSY INC INDWELLING STENT INSERTION Right 05/24/2024 CYSTOURETEROSCOPY,DIAGNOSTIC,W/ LITHOTRIPSY INC. INSERTION OF INDWELLING URETERAL STENT (WRVU 8) performed by Rachel Carrasco MD at [facility] MAIN OR ??? PRO CYSTOSCOPY, INSERT URETERAL STENT Right 04/09/2024 CYSTO, STENT PLACEMENT (WRVU 2.82) performed by Rachel Carrasco MD at [facility] MAIN OR ??? PRO LAP, CHOLECYSTECTOMY/GRAPH N/A 07/21/2018 LAPAROSCOPIC CHOLECYSTECTOMY WITH CHOLANGIOGRAM (WRVU 11.47) performed by Colt Hewitt MD [facility] OR ??? PRO UNLISTED LAPAROSCOPIC PX LVR N/A 07/21/2018 LAPAROSCOPIC LIVER BIOPSY (WRVU 16.52) performed by Colt Hewitt MD at [facility] MAIN OR ??? PRO UPPER GI ENDOSCOPY, BIOPSY N/A 12/29/2017 UPPER GASTROINTESTINAL ENDOSCOPY,WITH BIOPSY SINGLE OR MULTIPLE (WRVU 2.49) performed by Yusuf Tucker MD at [facility] ENDOSCOPY ??? PRO UPPER GI ENDOSCOPY, BIOPSY N/A 03/08/2024 EGD WITH BIOPSY (WRVU 2.39) performed by Radu Silveira MD at [facility] ENDOSCOPY ??? PRO UPPER GI ENDOSCOPY, DIAGNOSTIC N/A 12/29/2017 EGD, UPPER GI ENDOSCOPY performed by Yusuf Tucker MD at [facility] ENDOSCOPY ??? TONSILLECTOMY Social History Tobacco Use ??? Smoking status: Former Current packs/day: 0.00 Average packs/day: 1.5 packs/day for 15.0 years (22.5 ttl pk-yrs) Types: Cigarettes Start date: 1994 Quit date: 2009 Years since quittin.5 ??? Smokeless tobacco: Former Types: Chew Quit [...] exam Misc Assessment: IV access: Peripheral line Other exam findings: 20g in R AC fossa Last Filed Perioperative Cognitive Screening None Anesthesia Plan: ASA 3 general, with a(n) intravenous induction Rolo Aguilar is a 53 y.o. male with right ureteral stone scheduled cysto/stent with Dr. Carrasco. PMH: Obesity (BMI: 76.41 kg/m??), asthma (atrovent/no recent issue), CHF (lasix, [...] MAC; noted to be Grade one with MAC4, VL ANESTHETIC PLAN GA, ETT Region - Other Informed Consent: Anesthetic plan and risks discussed with patient and spouse. Plan discussed with resident and attending. Anesthesia Screening documented in this encounter Plan of Treatment Upcoming Encounters Date Type Department Care Team (Late st Contact Info) Description 06/23/2024 10:00 AM EDT Office Visit Cardiology at [address] [place] [address] Mo Horne MD [facility] [place] [address] 09/21/2024 10:[address] [place] [place] [phone] Rachel Carrasco MD [facility] [place] [address] 09/21/2024 11:00 AM EST Office [place] [phone] Rachel Carrasco MD [facility] [place] [address] documented as of this encounter Visit Diagnoses Not on filedocumented in this encounter Administered Medications Inactive Administered Medications - up to 3 most recent administrations Medication Order MAR Action Action Date Dose Rate Site ceFAZolin (Ancef) 2 g vial attach to sodium chloride 0.9% 100 mL Mini-Bag Plus 2 g, Intravenous, TECHNICAL SALES SPECIALIST TO O.R., 1 dose, On Fri06/11/24 at 1700, Administer over 30 Minutes, Day of Surgery (Day of Procedure), Indication for (Active or Suspected): Prophylaxis New Bag 06/11/2024 5:44 PM EDT 3 g lactated ringers infusion Intravenous, CONTINUOUS PRN, Starting on Fri06/11/24 at 1726, Until Fri06/11/24 at 1847, Anesthesia Intra-op New Bag 06/11/2024 5:26 PM EDT ondansetron (pf) (Zofran) (2 mg/mL) injection Intravenous, PRN, Starting on Fri06/11/24 at 1744, Until Fri06/11/24 at 1847, Anesthesia Intra-op, Routine Given 06/11/2024 5:44 PM EDT 4 mg propofoL (Diprivan) 10 mg/mL bolus injection (Anesthesia) Intravenous, PRN, Starting on Fri06/11/24 at 1738, Until Fri06/11/24 at 1847, Anesthesia Intra-op Given 06/11/2024 5:38 PM EDT 200 mg succinylcholine (Anectine;Quelicin) (20 mg/mL) injection Intravenous, PRN, Starting on Fri06/11/24 at 1738, Until Fri06/11/24 at 1847, Anesthesia Intra-op, Routine Given 06/11/2024 5:38 PM EDT 200 mg documented in this encounter Care Teams Punch Out Crew Member Relationship Specialty Start Date End Date Amira Hooks PA [address] [address] PCP - General Family Medicine 07/25/22 documented as of this encounter
--- OUTSIDE RECORDS SUMMARY | 2024-06-17 22:16 | XMS_ITS | Encounter Summary ---
[facility] [place] [address] Care Team Providers Care Commercial Door Installer Name Role Phone Amira Hooks Primary Care Provider Encounter Details Date Type Department Care Team (Late Contact Info) Description 06/15/2024 1:30 PM EDT Clinical Support [place] [address] Arrived Social History Tobacco Use Types Packs/Day Years [...] AM EDT Office Visit Cardiology at [address] [place] [address] Mo Horne MD [facility] [place] [address] 09/21/2024 10:[address] [place] [address] Rachel Carrasco MD [facility] UROLOGY [place], [place] [id number] 09/21/2024 11:00 AM EST Office [place] [address] Rachel Carrasco MD [facility] [place] [address] documented as of this encounter Visit Diagnoses Not on filedocumented in this encounter Care Teams Commercial Door Installer Relationship Specialty Start Date End Date Amira Hooks PA [address] [place] [id number] PCP - General Family Medicine 07/25/22 documented as of this encounter
--- OUTSIDE RECORDS SUMMARY | 2024-06-17 22:16 | XMS_ITS | Encounter Summary ---
[place] [address] Care Team Providers Care Hospice Case Manager Name Role Phone Amira Hooks Primary Care Provider Reason for Referral * Diagnostic Test (Routine) - Authorized Specialty Diagnoses / Procedures Referred By Zeyad mishra Referred To Contact Radiology Diagnoses Nephrolithiasis Procedures CT Abdomen & Pelvis wo Contrast Abelino Lazar MD [facility] [place] [address] [facility] [place] [address] Referral ID Status Reason Start Date Expiration Date Visits Requested Visits Authorized [id number] Authorized Specialty Service Requested 06/11/2024 12/12/2025 1 1 Encounter Details Date Type Department Care Team (Late st Contact Info) Description 06/11/2024 [place] [address] Abelino Lazar MD [facility] [place] [address] Nephrolithiasis Social History Tobacco Use Types Packs/Day [...] AM EDT Office Visit Cardiology at [address] [phone] Mo Horne MD [facility] [place] [address] 09/21/2024 10:[address] [place] [phone] Rachel Carrasco MD [facility] [place] [address] 09/21/2024 11:00 AM EST Office [place] [address] Rachel Carrasco MD [facility] [place] [address] Scheduled Orders Name Type Priority Associated Diagnoses Orde r Schedule CT Abdomen & Pelvis wo Contrast Imaging Routine Nephrolithiasis Expected: 09/11/2024, Expires: 03/13/2025 documented as of this encounter Visit Diagnoses Diagnosis Nephrolithiasis Calculus of kidney documented in this encounter Care Teams Hospice Case Manager Relationship Specialty Start Date End Date Amira Hooks PA [address] [place] [phone] PCP - General Family Medicine 07/25/22 documented as of this encounter
--- OUTSIDE RECORDS SUMMARY | 2024-06-17 22:16 | XMS_ITS | Encounter Summary ---
Author Organization [facility] [place] [address] Care Team Providers Care Farm Machinery Mechanic Name Role Phone Amira Hooks Primary Care Provider [phone] Reason for Visit * Auth/Cert (Routine) Specialty Diagnoses / Procedures Referred By Zeyad mishra Referred To Contact Diagnoses Nephrolithiasis NEPHROLITHIASIS Procedures PRO CYSTOSCOPY, REMV CALCULUS, SIMPLE CYSTO, REMOVAL OF STENT, FOREIGN BODY OR CALCULUS, SIMPLE (WRVU 2.81) Rachel Carrasco MD [facility] [place] [place] [address] [facility] Referral ID Status Reason Start Date Expiration Date Visits Re quested Visits Authorized [id number] 1 1 Encounter Details Date Type Department Care Team (Latest Contact Info) Description 06/11/2024 4:14 PM EDT - 06/11/2024 7:41 PM EDT Hospital En[place] [address] Rachel Carrasco MD [facility] [place] [address] Discharge Disposition: Home Social History Tobacco Use [...] Mass Index 75.44 06/11/2024 4:28 PM EDT documented in this encounter Discharge Instructions * Discharge Instructions* Zeus Norris RN - 06/11/2024 6:31 PM EDT A urinary catheter is a flexible plastic tube used to drain urine from your bladder when you cannoturinate on your own. The catheter allows urine to drain from the bladder into a bag. The bag is usually attached to the thigh. You may need a catheter because you have a medical condition (such as an enlarged prostate) that makes it hard to urinate. Or you may need one if you are not able to control the release of urine or if lyou have had surgery on the pelvis or urinary tract. These catheters are also used when the lowerpart of the body is paralyzed. Catheter care Always wash your hands before and after you handle your catheter. Make sure that urine is flowing out of the catheter into the urine collection bag. Make sure that the catheter tubing does not get twisted or kinked. Keep the urine collection bag below the level of your bladder. Make sure that the urine collection bag does not drag and pull on the catheter. Unless you have been told not to , it isokay to shower with your catheter and urine collection bag in place. Check for inflammation or signs of infection in the area around the catheter. Signs of infection include irritated, swollen, red, or tender skin. You may see pus around the catheter. Clean the skin around the catheter twice a day using soap and water. Dry with a clean towel afterward. Do not apply powder or lotion to the skin around the catheter. Do not tug or pull on the catheter. Do not have sexual intercourse while wearing a catheter. At night you may wish to hang the urine collection bag on the side of your bed. To empty the urine collection bag Wash your hands with soap and water. If your doctor has asked you to keep a record, measure the amount of urine in the bag before you empty it. Remove the drain spout from its sleeve at the bottom ofthe collection bag. Open the valve on the spout. Let the urine flow out of the bag and into the toilet or container. Do net let the tubing or drain spout touch anything. After you empty the bag, wipeoff any liquid on the end of the drain spout. Close the valve. Then put the drain spout back into its sleeve at the bottom of the collection bag. Wash your hands with soap and water. When should you call for help? Call your doctor now or seek immediate medical care if: You have symptoms of urinary infection. For example: You have blood or pus in your urine. You have pain in your back just below your rib cage. This is called flank pain. You have a fever, chills or body aches. You have groin or belly pain. Your urine smells bad. You see large blood clots in your urine No urine or very little urine is flowing into the bag for 4 or more hours. Watch closely for changes in your health and be sure to contact your doctor if: The area around the catheter becomes irritated, swollen, red, tender or has pus draining from it. Urine is leaking from the place where the catheter enters your body. * Patient Instructions* Abelino Lazar MD - 06/11/2024 6:21 PM EDT Instructions following Cystoscopic Surgery and stent removal Activity: As tolerated by your comfort level. Urination: You will likely have a small amount of blood in your urine for the next several days, upto 10-14 days. This is normal; however, if you are passing large amounts of blood clots or your catheter stops draining please call our office at [phone] before 5PM or [phone] after hours. Call Doctor for: Please call if you have copious blood in your urine, severe back or side pain, pain not controlled by pain medications, persistent nausea and vomiting, or for any fevers greater anyf746.3 F. The number for questions is [phone] before 5 PM weekdays and [phone] after 5 PM and weekends. Pain Medication: You may use ibuprofen (motrin, advil) or acetaminophen (tylenol) if you are experiencing pain. Follow-up: - Void trial for catheter removal on 06/15 has been requested, please call if you do not hear regarding this appointment documented in this encounter Medications at Time of Discharge Medication Sig Dispensed Refills Start Date End Date phenazopyridine (Pyridium) 200 mg tablet Take 1 tablet by mouth 3 times daily as needed for Pain. 9 tablet 06/11/2024 prucalopride (Motegrity) 2 mg tabletIndications:Chron ic constipation Take 1 tablet by mouth daily. 90 tablet 3 06/09/2024 oxyCODONE (Roxicodone) 10 mg tablet Take 1 [...] 03/26/2024 ipratropium (ATROVENT) 21 mcg (0.03 %) Kell, Non-Aerosol INSTILL 2 SPRAYS VIA NOSTRILS AT BEDTIME 09/18/2023 potassium chloride ER (Klor-Con, K-Tab) 10 mEq [...] for up to 3 days. 9 tablet 06/11/2024 06/14/2024 documented as of this encounter H&P Notes * Abelino Lazar MD - 06/11/2024 4:59 PM EDT Urology H&P Rolo Aguilar is a 53 y.o. male with a history of of right nephrolithiasis s/p right URS/LL. Operative findings: lovett urethral narrowing/ LS, indwelling right stent with minimal encrustation, removed, Medially displaced ureter, 2.5mm right mid stone mildly impacted, lasered and removed, 7F x 28cm ureteral stent placed He presents today for right ureteral stent placement. There have been no changes to his history. PMH: Past Medical History: Diagnosis Date A-fib Anxiety Arthritis CAD (coronary artery disease) Depression Flutter-fibrillation GERD (gastroesophageal reflux disease) Hepatitis HLD (hyperlipidemia) Hypertension Seizure PSH: Past Surgical History: Procedure Laterality Date CHOLECYSTECTOMY PRO CYSTO/URETEROSCOPY W/LITHOTRIPSY INC INDWELLING STENT INSERTION Right 05/24/2024 CYSTOURETEROSCOPY,DIAGNOSTIC,W/ LITHOTRIPSY INC. INSERTION OF INDWELLING URETERAL STENT (WRVU 8) performed by Rachel Carrasco MD at [facility] MAIN OR PRO CYSTOSCOPY, INSERT URETERAL STENT Right 04/09/2024 CYSTO, STENT PLACEMENT (WRVU 2.82) performed by Rachel Carrasco MD at [facility] MAIN OR PRO LAP, CHOLECYSTECTOMY/GRAPH N/A 07/21/2018 LAPAROSCOPIC CHOLECYSTECTOMY WITH CHOLANGIOGRAM (WRVU 11.47) performed by Colt Hewitt MD [facility] MAIN OR PRO UNLISTED LAPAROSCOPIC PX LVR N/A 07/21/2018 LAPAROSCOPIC LIVER BIOPSY (WRVU 16.52) performed by Colt Hewitt MD at [facility] MAIN OR PRO UPPER GI ENDOSCOPY, BIOPSY N/A 12/29/2017 UPPER GASTROINTESTINAL ENDOSCOPY,WITH BIOPSY SINGLE OR MULTIPLE (WRVU 2.49) performed by Yusuf Tucker MD at [facility] ENDOSCOPY PRO UPPER GI ENDOSCOPY, BIOPSY N/A 03/08/2024 EGD WITH BIOPSY (WRVU 2.39) performed by Radu Silveira MD at [facility] ENDOSCOPY PRO UPPER GI ENDOSCOPY, DIAGNOSTIC N/A 12/29/2017 EGD, UPPER GI ENDOSCOPY performed by Yusuf Tucker MD at [facility] ENDOSCOPY TONSILLECTOMY Allergies: Allergies Allergen Reactions Adenosine Palpitations tachycardia Other reaction(s): Rapid heart beat PT had an adverse reaction HR went up to 250%27s Gabapentin Wellbutrin [Bupropion Hcl] Zoloft [Sertraline] No data found. Physical Exam: Gen: NAD CV: regular rate Pulm: non labored on room air, respiratory effort normal Micro: Lab Results Component Value Date URINECULTURE [...] marked - Preop abx: rimma Lazar MD 06/09/2024 [id number] documented in this encounter Miscellaneous Notes * Op Note - Rachel Carrasco MD - 06/11/2024 5:52 PM EDT [facility] Operative Note Patient Name: Rolo Aguilar : [id number] MR#: [id number] Case Date: 06/11/2024 Surgeon: Surgeons and Role: * Rachel Carrasco MD - Primary * Abelino Lazar MD - Resident - Assisting Preoperative diagnosis: NEPHROLITHIASIS Postoperative diagnosis: NEPHROLITHIASIS Procedure(s) (LRB): CYSTO, REMOVAL OF STENT, FOREIGN BODY OR CALCULUS, SIMPLE (WRVU 2.81) (Right) Findings: - 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 Carrasco requested Anesthesia: General Estimated Blood Loss: Specimens removed during surgery: None Drains: 16F lobato catheter Surgical Closure: Disposition: awakened from anesthesia, extubated and taken to the recovery room in a stable condition, having suffered no apparent untoward event. Condition: doing well without problems (Please see the Surgical Encounter Summary for any Implant and Specimen details pertinent to this patient.) HPI/Surgical Indications: nephrolithiasis Procedure Description: The patient was identified in the pre-operative holding area. Consent was verified. The patient wastaken to the operating room and placed supine on the operating table. General anesthesia was induced. A timeout was performed involving all members of the OR team confirming the patient's identity and planned procedure. Preoperative antibiotics (ancef) were administered. The patient was repositioned into the lithotomy position and prepped and draped in the usual sterile fashion. The 22F cystoscope was inserted into the bladder. The anterior urethra was notable for lovett urethralnarrowing approximately the size of the scope. Despite advancement over a glide wire and pollack, amucosal flap was raised in the mid penile urethra. The true lumen was identified and the scope was gently advanced over the wire and into the bladder. The stent was identified and removed without complication over the wire. A 16F lobato was inserted over the wire with return of urine. 10cc of saline was used to inflate the balloon. The patient tolerated the procedure well and was awoken from anesthesia There were no complications. Dr. Carrasco, the attending surgeon, was present for the entire procedure. Surgical Infection Prevention Bundle Used? No Attestation: Case Date: 06/11/2024 I was present and I participated during the entire procedure (does not need to include opening and closing). Rachel Carrasco MD 06/12/2024 documented in this encounter Plan of Treatment Upcoming Encounters Date Type Department Care Team (Late st Contact Info) Description 06/23/2024 10:00 AM EDT Office Visit Cardiology at [address] [place] [address] Mo Horen MD [facility] [place] [address] 09/21/2024 10:[address] [place] [phone] Rachel Carrasco MD [facility] [place] [address] 09/21/2024 11:00 AM EST Office [place] [phone] Rachel Carrasco MD [facility] [place] [address] documented as of this encounter Procedures Procedure Name Priority Date/Time Associated Diagnosis Comments Cystoscopy, Remv Calculus, Simple (82401) 06/11/2024 5:26 PM EDT NEPHROLITHIASIS documented in this encounter Visit Diagnoses Not on filedocumented in this encounter Administered Medications Inactive Administered Medications - up to 3 most recent administrations Medication Order MAR Action Action Date Dose Rate Site fentaNYL (pf) (50 mcg/mL) multi-dose injection 50 mcg 50 mcg, Intravenous, EVERY 5 MIN PRN, Starting on Fri06/11/24 at 1757, Until Fri06/11/24 at 1937, Pain, Moderate to severe pain (6-10 out of 10), Hold for respiratory rate less than 10 per minute. Maximum dose 200 mcg over one hour, including OR administration. If ordered with HYDROmorphone, give HYDROmorphone first and use fentaNYL for breakthrough pain., PACU Recovery, Routine Given 06/11/2024 6:48 PM EDT 50 mcg documented in this encounter Active and Recently Administered Medications Times are shown in EDT. Scheduled Medication Order 06/09/2024 06/10/2024 06/11/2024 ceFAZolin (Ancef) 2 g vial attach to sodium chloride 0.9% 100 mL Mini-Bag Plus (COMPLETED) 2 g, Intravenous, ALLERGY NURSE TO O.R., 1 dose, On Fri06/11/24 at 1700, Administer over 30 Minutes, Day of Surgery (Day of Procedure), Indication for (Active or Suspected): Prophylaxis 363 (New Bag - Prov ider: Arturo Max CRNA) PRN Medication Order 06/09/2024 06/10/2024 06/11/2024 fentaNYL (pf) (50 mcg/mL) multi-dose injection 50 mcg (CANCELED)(Linked Group 1) 50 mcg, Intravenous, EVERY 5 MIN PRN, Starting on Fri06/11/24 at 1757, Until Fri06/11/24 at 1937, Pain, Moderate to severe pain (6-10 out of 10), Hold for respiratory rate less than 10 per minute. Maximum dose 200 mcg over one hour, including OR administration. If ordered with HYDROmorphone, give HYDROmorphone first and use fentaNYL for breakthrough pain., PACU Recovery, Routine 184 (Given - Provid er: Zeus Norris RN) Linked Groups Order Group 1: fentaNYL (pf) (50 mcg/mL) multi-dose injection 25 mcg (CANCELED) 25 mcg, Intravenous, EVERY 5 MIN PRN, Starting on Fri06/11/24 at 1757, Until Fri06/11/24 at 1937, Pain, Mild to moderate pain (1-5 out of 10), Hold for respiratory rate less than 10 per minute. Maximum dose 100 mcg over one hour, including OR administration. If ordered with HYDROmorphone, give HYDROmorphone first and use fentaNYL for breakthrough pain., PACU Recovery, Routine Or fentaNYL (pf) (50 mcg/mL) multi-dose injection 50 mcg (CANCELED)Jump to med 50 mcg, Intravenous, EVERY 5 MIN PRN, Starting on Fri06/11/24 at 1757, Until Fri06/11/24 at 1937, Pain, Moderate to severe pain (6-10 out of 10), Hold for respiratory rate less than 10 per minute. Maximum dose 200 mcg over one hour, including OR administration. If ordered with HYDROmorphone, give HYDROmorphone first and use fentaNYL for breakthrough pain., PACU Recovery, Routine documented in this encounter Care Teams Farm Machinery Mechanic Relationship Specialty Start Date End Date Amira Hooks PA [address] [place] [address] PCP - General Family Medicine 07/25/22 documented as of this encounter
--- OUTSIDE RECORDS SUMMARY | 2024-06-17 22:16 | XMS_ITS | Encounter Summary ---
Author Organization Counts Include [facility] Address [facility] [place] [address] Care Team Providers Care Laborer Chemical Processing Name Role Phone Amira Hooks Primary Care Provider Encounter Details Date Type Department Care Team (Late st Contact Info) Description 06/07/2024 2:00 PM EDT Office Visit [place] [address] Joan Castro MD [facility] [place] [address] Screening for colon cancer; Chronic constipation; Abdominal bloating; Intestinal metaplasia of gastric mucosa; Dyspepsia; Heartburn Social History Tobacco Use Types Packs/Day Years Used Date Smoking Tobacco: Former Cigarettes 1.5 15 1 - 2009 Smokeless Tobacco: Former Chew Quit: 2013 Alcohol Use Standard Drinks/Week Comments No 0 (1 standard drink = 0.6 oz pur e alcohol) [facility] Inpatient Questions Answer Date Recorded Does [...] Sign Reading Time Taken Comments Blood Pressure 141/63 06/07/2024 1:55 PM EDT Pulse 57 06/07/2024 1:55 PM EDT Temperature - - Respiratory Rate - - Oxygen Saturation - - Inhaled Oxygen Concentration - - Weight 214 kg (471 lb 12.8 oz) 06/07/2024 1:55 P M EDT Height 167.6 cm (5' 6) 06/07/2024 1:55 PM EDT Body Mass Index 76.15 06/07/2024 1:55 PM EDT documented in this encounter Patient Instructions * Patient Instructions* Joan Castro MD - 06/07/2024 2:00 PM EDT ike: Try taking Motegrity 2mg consistently 3x/wk (+ 1mg at bedtime if you need it). If too much diarrhea, skip a day between doses. Based on response, consider further adjustments including a trial of 1mgdaily with a PRN 1mg dose in the evening if needed. Simethicone as needed for upper abdominal pain if needed Reduce animal fat in diet Continue Carafate Ok to drink Kombucha Repeat EGD 1 year FIT test Conisder: Regino NM GE scan pH impedence + HREM GI BH vs neuromodulator Follow-up in: 6 months documented in this encounter Progress Notes * Joan Castro MD - 06/07/2024 2:00 PM EDT [facility] Section of Gastroenterology and Hepatology Telemedicine Follow-Up Visit PCP: SONNY Gambino HPI This is a 53 y.o. male who is engaging in follow-up for abdominal pain. Interval follow-up Ongoing dyspepsia despite Dexilant 60mg/day and being off GLP-1 Baseline elevation of both hydrogen and methane on SIBO test though both dropped after 90 min whichis unusual Gave abx - doxy + neomycin x 14 days, some mild benefit (40% better) which wore off EGD with erosions and erythema in the antrum appeared c/w gastritis. Bx with reactive gastropathy and focal IM. Esophageal and duodenal bx normal. Abd ultrasound with normal bile ducts, + fatty liver Imaging with increased stool volume Feels he did not have an issue with constipation prior to trulicity Started motegrity and it really helped. If takes it daily has diarrhea. So now he does it PRN. Takes 2mg pill; if no benefit then takes a 1mg dose that night and then has a BM. All his symptoms resolve. Had a kidney stone, stent in ureter, gets stent out on Friday - on other meds so trying to get carafate in but can't always, provides a little relief Heartburn even with water No dysphagia No known family hx of gastric cancer Review of systems: 14-point review of systems reviewed and negative except as above. My review of the patients's history and testing (labs, endoscopies, imaging) is summarized below: Patient Active Problem List Diagnosis Code Coronary disease I25.10 Heart palpitations R00.2 Obesity E66.9 Essential hypertension I10 H/O cardiac radiofrequency ablation Z98.890 Flutter-fibrillation I48.91, I48.92 SVT (supraventricular tachycardia) I47.10 PAF (paroxysmal atrial fibrillation) I48.0 Bipolar disorder F31.9 Atrial flutter I48.92 Obstructive sleep apnea syndrome G47.33 Dyspepsia R10.13 Atrial fibrillation I48.91 Gastroesophageal reflux disease K21.9 Small intestinal bacterial overgrowth (SIBO) K63.8219 Current Outpatient Medications: oxyCODONE (Roxicodone) 10 mg tablet, Take 1 tablet by mouth every 4 hours., Disp: 15 tablet, Rfl: 0 tamsulosin (Flomax) 0.4 mg capsule, Take 1 capsule by mouth daily., Disp: 90 tablet, Rfl: 3 sucralfate (Carafate) 1 gram tablet, Take 1 tablet by mouth 4 times daily. If needed for upper abdominal discomfort and burning. Administer on an empty stomach. Take at least 2 hours before and 2 hours after other medications to prevent problems with absorption., Disp: 120 tablet, Rfl: 3 prucalopride (Motegrity) 2 mg tablet, Take 1 tablet by mouth daily., Disp: 30 tablet, Rfl: 3 ipratropium (ATROVENT) 21 mcg (0.03 %) [place], Non-Aerosol, INSTILL 2 SPRAYS VIA NOSTRILS AT BEDTIME, Disp: , Rfl: torsemide (Demadex) 20 mg tablet, Take 40 [...] times daily., Disp: 180 tablet, Rfl: 3 furosemide (Lasix) 20 mg Tablet, Take 1 tablet by mouth daily., Disp: 30 tablet, Rfl: 0 lamoTRIgine (LaMICtal) 100 mg Tablet, Take 1 [...] daily as needed for Anxiety., Disp: ,Rfl: Allergies Allergen Reactions Adenosine Palpitations tachycardia Other reaction(s): Rapid heart beat PT had an adverse reaction HR went up to 250%27s Gabapentin Wellbutrin [Bupropion Hcl] Zoloft [Sertraline] Past Medical History: Diagnosis Date A-fib Anxiety Arthritis CAD (coronary artery disease) Depression Flutter-fibrillation GERD (gastroesophageal reflux disease) Hepatitis HLD (hyperlipidemia) Hypertension Seizure Past Surgical History: Procedure Laterality Date CHOLECYSTECTOMY PRO CYSTO/URETEROSCOPY W/LITHOTRIPSY INC INDWELLING STENT INSERTION Right 05/24/2024 CYSTOURETEROSCOPY,DIAGNOSTIC,W/ LITHOTRIPSY INC. INSERTION OF INDWELLING URETERAL STENT (WRVU 8) performed by Rachel Carrasco MD at [facility] MAIN OR PRO CYSTOSCOPY, INSERT URETERAL STENT Right 04/09/2024 CYSTO, STENT PLACEMENT (WRVU 2.82) performed by Rachel Carrasco MD at [facility] MAIN OR PRO LAP, CHOLECYSTECTOMY/GRAPH N/A 07/21/2018 LAPAROSCOPIC CHOLECYSTECTOMY WITH CHOLANGIOGRAM (WRVU 11.47) performed by Colt Hewitt MD [facility] MAIN OR PRO UNLISTED LAPAROSCOPIC PX LVR N/A 07/21/2018 LAPAROSCOPIC LIVER BIOPSY (WRVU 16.52) performed by Colt Hewitt MD at [facility] MAIN OR PRO UPPER GI ENDOSCOPY, BIOPSY N/A 12/29/2017 UPPER GASTROINTESTINAL ENDOSCOPY,WITH BIOPSY SINGLE OR MULTIPLE (WRVU 2.49) performed by Yusuf Tucker MD at [facility] ENDOSCOPY PRO UPPER GI ENDOSCOPY, BIOPSY N/A 03/08/2024 EGD WITH BIOPSY (WRVU 2.39) performed by Radu Silveira MD at [facility] ENDOSCOPY PRO UPPER GI ENDOSCOPY, DIAGNOSTIC N/A 12/29/2017 EGD, UPPER GI ENDOSCOPY performed by Yusuf Tucker MD at [facility] ENDOSCOPY TONSILLECTOMY Social History Socioeconomic History Marital status: Spouse name: Not on file Number of children: Not on file Years of education: Not on file Highest education level: Not on file Occupational History Not on file Tobacco Use Smoking status: Former Current packs/day: 0.00 Average packs/day: 1.5 packs/day for 15.0 years (22.5 ttl pk-yrs) Types: Cigarettes Start date: 1994 Quit date: 2009 Years since quittin.5 Smokeless tobacco: Former Types: Chew Quit date: 2013 Vaping Use Vaping status: Former Substance and Sexual Activity Alcohol use: No Drug use: Not Currently Types: Benzodiazapines , Opioids Comment: oxycodone for back pain Sexual activity: Never Other Topics Concern Not on file Social History Narrative Not on file Social Determinants of Health Financial Resource Strain: Not on file Food Insecurity: Not on file Transportation Needs: Not on file Physical Activity: Not on file Intimate Partner Violence: Patient Unable To Answer (05/24/2024) DH IPV Inpatient Questions Prevent Contact with Others: unable to answer (comment required) Feels Threatened by Someone: unable to answer (comment required) Feels Unsafe at Home: unable to answer (comment required) Physical Signs of Abuse Present: no Housing Stability: Not on file Family History Problem Relation Age of Onset Coronary Artery Disease Father Hypertension Father Coronary Artery Disease Brother Hypertension Brother Diabetes Brother Coronary Artery Disease Sister Physical Exam: No physical exam performed during this phone/telemedicine visit. PERTINENT LABS AND IMAGING: As noted above Impression: Correlates sx to starting GLP-1, which he has been off for quite some time All upper GI sx improve with moving his bowels - focus on this Wants to avoid other tests for now given recent issues with kidney stones, needs a beak Plan: Try taking Motegrity 2mg consistently 3x/wk (+ 1mg at bedtime if you need it). If too much diarrhea, skip a day between doses. Based on response, consider further adjustments including a trial of 1mgdaily with a PRN 1mg dose in the evening if needed. Simethicone as needed for upper abdominal pain if needed Reduce animal fat in diet Continue Carafate Ok to drink Kombucha Repeat EGD 1 year FIT test Conisder: Linzess NM GE scan pH impedence + HREM GI BH vs neuromodulator Follow-up in: 6 months The risks, benefits and alternatives were discussed with the patient who understands and agrees with above. Joan Castro MD 06/07/24 Joan Castro MD Entertainment Reporterwater pollution control technician Section of Gastroenterology and Hepatology [facility] [email or web address] ([email or web address]) documented in this encounter Plan of Treatment Upcoming Encounters Date Type Department Care Team (Late st Contact Info) Description 06/23/2024 10:00 AM EDT Office Visit Cardiology at [address] [place] [phone] Mo Horne MD [facility] [place] [address] 09/21/2024 10:[address] [place] [address] Rachel Carrasco MD [facility] [place] [address] 09/21/2024 11:00 AM EST Office [place] [phone] Rachel Carrasco MD [facility] [place] [address] Scheduled Orders Name Type Priority Associated Diagnoses Orde r Schedule Fecal Occult Blood, Immunoassay Lab Routine Screening for colon cancer Expected: 06/07/2024, Expires: 06/07/2025 documented as of this encounter Visit Diagnoses Diagnosis Screening for colon cancer Special screening for malignant neoplasms, colon Chronic constipation Unspecified constipation Abdominal bloating Flatulence, eructation, and gas pain Intestinal metaplasia of gastric mucosa Other specified disorder of stomach and duodenum Dyspepsia Dyspepsia and other specified disorders of function of stomach Heartburn documented in this encounter Care Teams Laborer Chemical Processing Relationship Specialty Start Date End Date Amira Hooks PA [address] [place] [id number] PCP - General Family Medicine 07/25/22 documented as of this encounter
--- OUTSIDE RECORDS SUMMARY | 2024-06-17 22:16 | XMS_ITS | Referral Summary ---
Author Organization [facility] Address [address] [place] [address] Care Team Providers Care Metallographer Name Role Phone Unavailable Primary Care Provider [...]
--- OUTSIDE RECORDS SUMMARY | 2024-06-17 22:16 | XMS_ITS | Encounter Summary ---
Author Organization [facility] Address [facility] [place] [address] Care Team Providers Care Door Trimmer Name Role Phone Amira Hooks Primary Care Provider [phone] Reason for Visit * Reason Onset Date Comments Medication Refill 06/07/2024 Encounter Details Date Type Department Care Team (Late st Contact Info) Description 06/07/2024 Ref[place] [address] Joan Castro MD [facility] [place] [address] Chronic constipation Social History Tobacco Use Types Packs/Day Years Used Date Smoking Tobacco: Former Cigarettes 1.5 15 1 - 2009 Smokeless Tobacco: Former Chew Quit: 2013 Alcohol Use Standard Drinks/Week Comments No 0 (1 standard drink = 0.6 oz pur e alcohol) [facility] Inpatient Questions Answer Date Recorded [...] AM EDT Office Visit Cardiology at [address] [place] [address] Mo Horne MD [facility] [place] [address] 09/21/2024 10:[address] [place] [place] [phone] Rachel Carrasco MD [facility] [place] [address] 09/21/2024 11:00 AM EST [place] [phone] Rachel Carrasco MD [facility] [place] [address] documented as of this encounter Visit Diagnoses Diagnosis Chronic constipation Unspecified constipation documented in this encounter Care Teams Door Trimmer Relationship Specialty Start Date End Date Amira Hooks PA [address] [place] [address] PCP - General Family Medicine 07/25/22 documented as of this encounter
--- OUTSIDE RECORDS SUMMARY | 2024-06-17 22:16 | XMS_ITS | Encounter Summary ---
Author Organization [facility] Address [facility] [place] [id number] Care Team Providers Care Trouble Locator Test Desk Name Role Phone Amira Hooks Primary Care Provider Encounter Details Date Type Department Care Team (Latest Contact Info) Description 06/17/2024 Travel Social History Tobacco Use Types Packs/Day [...] AM EDT Office Visit Cardiology at [address] [phone] Mo Horne MD [facility] [place] [id number] 09/21/2024 10:[address] [place] [place] [phone] Rachel Carrasco MD [facility] [place] [address] 09/21/2024 11:00 AM EST [place] [phone] Rachel Carrasco MD [facility] [place] [address] documented as of this encounter Visit Diagnoses Not on filedocumented in this encounter Care Teams Trouble Locator Test Desk Relationship Specialty Start Date End Date Amira Hooks PA [address] [place] [id number] PCP - General Family Medicine 07/25/22 documented as of this encounter
--- OUTSIDE RECORDS SUMMARY | 2024-06-17 22:16 | XMS_ITS | Encounter Summary ---
Author Organization [facility] Address [address] [place] [address] Care Team Providers Care Computerized Table Cutter Name Role Phone Unavailable Primary Care Provider Unavailabl e Encounter Details Date Type Department Care Team (Late st Contact Info) Description 12/16/2020 Lab Requisition [facility] Pathology & Laboratory Medicine - [facility] [address] [place] [address] Outr Resulting Lab, Provider Social History Tobacco [...] Priority Date/Time Associated Diagnosis Comments ZZCOVID-19 TEST [facility] PCR Today 12/16/2020 1:30 EST COVID-19 TESTING Routine 12/16/2020 1:30 EST documented in this encounter Results * COVID-19 TEST [facility] LAB PCR (12/16/2020 1:30 EST) Swab ENTIRE NASOPHARYNX / Unknown 12/16/2020 1:30 EST 12/16/2020 22:23 EST Provider Outr Resulting Lab MICROBIOLOGY - GENERAL ORDERABLES [facility] [address] [place] [address] * COVID-19 TESTING (12/16/2020 1:30 EST) COVID-19 rt-PCR Result Negative Negative 12/18/2020 16:18 EST [facility] Comment: This test has not [...] developed and its performance characteristics determined by [facility]. It has not been cleared [...] defined by the FDA Performed on the StepUpo 7 Flex RT-PCR System. Performing Lab [facility] Lab 12/18/2020 16:18 EST [facility] Swab 12/16/2020 1:30 EST 12/16/2020 22:23 EST Provider Outr Resulting Lab MICROBIOLOGY - GENERAL ORDERABLES [facility] [address] [place] [address] documented in this encounter Visit Diagnoses Not on filedocumented in this encounter
--- OUTSIDE RECORDS SUMMARY | 2024-06-17 22:16 | XMS_ITS | Encounter Summary ---
Author Organization [facility] Address [address] [place] [address] Care Team Providers Care Stock House Worker Name Role Phone Unavailable Primary Care Provider Unavailabl e Encounter Details Date Type Department Care Team (Late st Contact Info) Description 12/14/2020 Lab Requisition [facility] Pathology & Laboratory Medicine - [facility] [address] [place] [address] Outr Resulting Lab, Provider Social History Tobacco [...] [facility] PCR Today 12/14/2020 7:52 EST COVID-19 TESTING Routine 12/14/2020 7:52 EST documented in this encounter Results * COVID-19 TEST [facility] PCR (12/14/2020 7:52 EST) Swab ENTIRE NASOPHARYNX / Unknown 12/14/2020 7:52 EST 12/14/2020 17:47 EST Provider Outr Resulting Lab MICROBIOLOGY - GENERAL ORDERABLES [facility] [address] [place] [address] * COVID-19 TESTING (12/14/2020 7:52 EST) COVID-19 rt-PCR Result Negative Negative 12/15/2020 15:23 EST [facility] Comment: This test has [...] defined by the FDA Performed on the RTF Logico 7 Flex RT-PCR System. Performing Lab [facility] Lab 12/15/2020 15:23 EST [facility] Swab 12/14/2020 7:52 EST 12/14/2020 17:47 EST Provider Outr Resulting Lab MICROBIOLOGY - GENERAL ORDERABLES [facility] [address] [place] [address] documented in this encounter Visit Diagnoses Not on filedocumented in this encounter
--- OUTSIDE RECORDS SUMMARY | 2024-06-17 22:16 | XMS_ITS | Encounter Summary ---
Author Organization [facility] [place] [address] Care Team Providers Care Salesperson Furniture Name Role Phone Amira Hooks Primary Care Provider [phone] Reason for Visit * Auth/Cert (Routine) Specialty Diagnoses / Procedures Referred By Zeyad mishra Referred To Contact Diagnoses Nephrolithiasis NEPHROLITHIASIS Procedures PRO CYSTOSCOPY, REMV CALCULUS, SIMPLE CYSTO, REMOVAL OF STENT, FOREIGN BODY OR CALCULUS, SIMPLE (WRVU 2.81) Rachel Carrasco MD [facility] [place] [address] [facility] Referral ID Status Reason Start Date Expiration Date Visits Re quested Visits Authorized [id number] 1 1 Encounter Details Date Type Department Care Team (Late st Contact Info) Description 06/11/2024 5:41 PM EDT - 06/11/2024 6:36 PM EDT Surgery [place] [address] Rachel Carrasco MD [facility] [place] [address] CYSTO, REMOVAL OF STENT, FOREIGN BODY OR CALCULUS, SIMPLE (WRVU 2.81) Social History Tobacco Use Types Packs/Day Years [...] Sign Reading Time Taken Comments Blood Pressure 147/63 06/11/2024 6:30 PM EDT Pulse 93 06/11/2024 4:28 PM EDT Temperature 36.1 ??C (97 ??F) 06/11/2024 6:15 PM EDT Respiratory Rate 16 06/11/2024 6:15 PM EDT Oxygen Saturation 95% 06/11/2024 6:30 PM EDT Inhaled Oxygen Concentration - - [...] stops draining please call our office at [phone] before 5PM or [phone] after hours. Call Doctor for: Please call if you have copious blood in your urine, severe back or side pain, pain not controlled by pain medications, persistent nausea and vomiting, or for any fevers greater bshv562.3 F. The number for questions is [phone] before 5 PM weekdays and [phone] after 5 PM and weekends. Pain Medication: [...] 03/26/2024 ipratropium (ATROVENT) 21 mcg (0.03 %) [place], Non-Aerosol INSTILL 2 SPRAYS VIA NOSTRILS AT [...] 8) performed by Rachel Carrasco MD at [facility] MAIN OR PRO CYSTOSCOPY, INSERT URETERAL STENT Right 04/09/2024 CYSTO, STENT PLACEMENT (WRVU 2.82) performed by Rachel Carrasco MD at [facility] MAIN OR PRO LAP, CHOLECYSTECTOMY/GRAPH N/A 07/21/2018 LAPAROSCOPIC CHOLECYSTECTOMY WITH CHOLANGIOGRAM (WRVU 11.47) performed by Colt Hewitt MD [facility] MAIN OR PRO UNLISTED LAPAROSCOPIC PX LVR N/A 07/21/2018 LAPAROSCOPIC LIVER BIOPSY (WRVU 16.52) performed by Colt Hewitt MD at [facility] MAIN OR PRO UPPER GI ENDOSCOPY, BIOPSY N/A 12/29/2017 UPPER GASTROINTESTINAL ENDOSCOPY,WITH BIOPSY SINGLE OR MULTIPLE (WRVU 2.49) performed by Yusuf Tucker MD at [facility] ENDOSCOPY PRO UPPER GI ENDOSCOPY, BIOPSY N/A 03/08/2024 EGD WITH BIOPSY (WRVU 2.39) performed by Radu Silveira MD at [facility] ENDOSCOPY PRO UPPER GI ENDOSCOPY, DIAGNOSTIC N/A 12/29/2017 EGD, UPPER GI ENDOSCOPY performed by Yusuf Tucker MD at [facility] ENDOSCOPY TONSILLECTOMY Allergies: Allergies Allergen Reactions [...] Carrasco MD - 06/11/2024 5:52 PM EDT [facility] [place] Operative Note Patient Name: Rolo Aguilar : [id number] MR#: [id number] Case Date: 06/11/2024 Surgeon: Surgeons and Role: [...] AM EDT Office Visit Cardiology at [address] [place] [address] Mo Horne MD [facility] [place] [address] 09/21/2024 10:[address] [place] [phone] Rachel Carrasco MD [facility] [place] [address] 09/21/2024 11:00 AM EST Office [place] [phone] Rachel Carrasco MD [facility] [place] [address] documented as of this encounter Procedures Procedure Name Priority Date/Time Associated Diagnosis Comments Cystoscopy, Remv Calculus, Simple (32065) 06/11/2024 5:26 PM EDT NEPHROLITHIASIS documented in [...] mL Mini-Bag Plus (COMPLETED) 2 g, Intravenous, ASSEMBLER WATCH TRAIN TO O.R., 1 dose, On Fri06/11/24 at 1700, Administer over 30 Minutes, Day of Surgery (Day of Procedure), Indication for (Active or Suspected): Prophylaxis 1744 (New Bag - Prov ider: Arturo Max [...] fentaNYL for breakthrough pain., PACU Recovery, Routine 1847 (Given - Provid er: Zeus Norris RN) [...] Routine documented in this encounter Care Teams Salesperson Furniture Relationship Specialty Start Date End Date Amira Hooks PA [address] [address] PCP - General Family Medicine 07/25/22 documented as of this encounter
--- OUTSIDE RECORDS SUMMARY | 2024-06-17 22:17 | XMS_ITS | Encounter Summary ---
[place] [address] Care Team Providers Care Harvest Supervisor Name Role Phone Amira Hooks Primary Care Provider Encounter Details Date Type Department Care Team (Late st Contact Info) Description 04/08/2024 [place] [phone] Xenia Mcrae, RN Social History Tobacco Use [...] 04/08/2024 2:46 PM EDT Copied from CRM #[id number]. Topic: Specialty Dept CRMs - Medication Issues [...] AM EDT Office Visit Cardiology at [address] [address] Mo Horne MD [facility] [place] [address] 09/21/2024 10:[address] [place] [place] [phone] Rachel Carrasco MD [facility] [place] [address] 09/21/2024 11:00 AM EST [place] [phone] Rachel Carrasco MD [facility] [place] [address] documented as of this encounter Visit Diagnoses Not on filedocumented in this encounter Care Teams Harvest Supervisor Relationship Specialty Start Date End Date Amira Hooks PA [address] [place] [address] PCP - General Family Medicine 07/25/22 documented as of this encounter
--- OUTSIDE RECORDS SUMMARY | 2024-06-17 22:17 | XMS_ITS | Encounter Summary ---
Author Organization [facility] Address [facility] [place] [address] Care Team Providers Care Ap Processor Name Role Phone Amira Hooks Primary Care Provider Encounter Details Date Type Department Care Team (Late st Contact Info) Description 03/24/2024 Telephone [place] [address] Rachel Carrasco MD [facility] [place] [address] Social History Tobacco Use Types Packs/Day Years [...] AM EDT Office Visit Cardiology at [address] [address] Mo Horne MD [facility] [place] [address] 09/21/2024 10:[address] [place] [address] Rachel Carrasco MD [facility] [place] [address] 09/21/2024 11:00 AM EST Office [place] [address] Rachel Carrasco MD [facility] [place] [address] documented as of this encounter Visit Diagnoses Not on filedocumented in this encounter Care Teams Ap Processor Relationship Specialty Start Date End Date Amira Hooks [place] [address] [place] [address] PCP - General Family Medicine 07/25/22 documented as of this encounter
--- OUTSIDE RECORDS SUMMARY | 2024-06-17 22:17 | XMS_ITS | Encounter Summary ---
Author Organization [facility] Address [facility] [place] [address] Care Team Providers Care Senior Mobile Application Developer Name Role Phone Amira Hooks Primary Care Provider [phone] Encounter Details Date Type Department Care Team [...] AM EDT Office Visit Cardiology at [address] [phone] Mo Horne MD [facility] [place] [address] 09/21/2024 10:[address] [place] [phone] Rachel Carrasco MD [facility] [place] [address] 09/21/2024 11:00 AM EST Office [place] [phone] Rachel Carrasco MD [facility] [place] [address] documented as of this encounter Visit Diagnoses Not on filedocumented in this encounter Care Teams Senior Mobile Application Developer Relationship Specialty Start Date End Date Amira Hooks PA [address] [place] [phone] PCP - General Family Medicine 07/25/22 documented as of this encounter
--- OUTSIDE RECORDS SUMMARY | 2024-06-17 22:17 | XMS_ITS | Encounter Summary ---
Author Organization [facility] [place] [address] Care Team Providers Care Stiff Leg Derrick Operator Name Role Phone Amira Hooks Primary Care Provider [phone] Reason for Visit * Auth/Cert (Routine) Specialty Diagnoses / Procedures Referred By Zeyad mishra Referred To Contact Diagnoses Nephrolithiasis right ureteral stone Procedures PRO CYSTO/URETEROSCOPY W/LITHOTRIPSY INC INDWELLING STENT INSERTION CYSTOURETEROSCOPY,DIAGNOSTI C,W/ LITHOTRIPSY INC. INSERTION OF INDWELLING URETERAL STENT (WRVU 8) MODIFIER HOLMIUM LASER Rachel Carrasco MD [facility] [place] [address] [facility] Referral ID Status Reason Start Date Expiration Date Visits Re quested Visits Authorized [id number] 1 1 Encounter Details Date Type Department Care Team (Late st Contact Info) Description 05/24/2024 7:39 AM EDT Anesthesia [place] [phone] Ursula Nolan MD [facility] [place] [address] Swetha Zhou DO [facility] [place] [address] Anesthesia Record Procedure Summary Procedure Name Responsible [...] and Airways Type Details Placement Removal PIV 05/24/24; 0651; hluk-wgj-ygljua catheter system; 20 gauge; median cubital vein [...] DO 05/24/24 0940 by Swetha Zhou DO Incision 05/24/24; 0828; peni s; 06/11/24 (removed prior to entering the OR); 17505/24/24 0828 by Ivonne Fuentes RN 06/11/24 1753 by Aileen Thapa RN documented in this encounter Social History [...] Procedure Summary Date: 05/24/24 Room / Location: [facility] OR [facility] MAIN OR Anesthesia Start: 738 Anesthesia Stop: 949 Procedures: CYSTOURETEROSCOPY,DIAGNOSTIC,W/ LITHOTRIPSY INC. INSERTION OF INDWELLING URETERAL STENT (WRVU 8) (Right: Ureter) MODIFIER HOLMIUM LASER (Ureter) Diagnosis: Nephrolithiasis (right ureteral stone) Surgeons: Rachel Carrasco MD Responsible Provider: Ursula Nolan MD Anesthesia Type: general ASA Status: 3 All Anesthesia Providers: Anesthesiologist: Ursula Nolan MD Semiconductor Assembler: Swetha Zhou, DO Vitals Value Taken Time BP 123/69 05/24/24 1015 Temp 35.9 ??C (96.6 ??F) 05/24/24 0944 Pulse 78 05/24/24 1030 Resp 21 05/24/24 1030 SpO2 96 % 05/24/24 1030 Pain Level 0 05/24/24 1000 Patient Location: PACU/[facility] Level of Consciousness: Awake and Alert [...] 2.82) performed by Rachel Carrasco MD at [facility] MAIN OR PRO LAP, CHOLECYSTECTOMY/GRAPH N/A 07/21/2018 LAPAROSCOPIC CHOLECYSTECTOMY WITH CHOLANGIOGRAM (WRVU 11.47) performed by Colt Hewitt MD [facility] MAIN OR PRO UNLISTED LAPAROSCOPIC PX LVR N/A 07/21/2018 LAPAROSCOPIC LIVER BIOPSY (WRVU 16.52) performed by Colt Hewitt MD at [facility] MAIN OR PRO UPPER GI ENDOSCOPY, BIOPSY N/A 12/29/2017 UPPER GASTROINTESTINAL ENDOSCOPY,WITH BIOPSY SINGLE OR MULTIPLE (WRVU 2.49) performed by Yusuf Tucker MD at [facility] ENDOSCOPY PRO UPPER GI ENDOSCOPY, BIOPSY N/A 03/08/2024 EGD WITH BIOPSY (WRVU 2.39) performed by Radu Silveira MD at [facility] ENDOSCOPY PRO UPPER GI ENDOSCOPY, DIAGNOSTIC N/A 12/29/2017 EGD, UPPER GI ENDOSCOPY performed by Yusuf Tucker MD at [facility] ENDOSCOPY TONSILLECTOMY Social History Tobacco Use [...] Swetha Zhou DO, PGY2/CA1 Department of Anesthesiology [id number] Region - Other Informed Consent: Anesthetic plan and risks discussed with patient and spouse. Plan discussed with resident and attending. Anesthesia Screening documented in this encounter Plan of Treatment Upcoming Encounters Date Type Department Care Team (Late st Contact Info) Description 06/23/2024 10:00 AM EDT Office Visit Cardiology at [address] [place] [phone] Mo Horne MD [facility] [place] [address] 09/21/2024 10:[address] [place] [phone] Rachel Carrasco MD [facility] [place] [address] 09/21/2024 11:00 AM EST Office [place] [phone] Rachel Carrasco MD [facility] [place] [address] documented as of this encounter Visit Diagnoses [...] mg documented in this encounter Care Teams Stiff Leg Derrick Operator Relationship Specialty Start Date End Date Amira Hooks PA [address] [place] [address] PCP - General Family Medicine 07/25/22 documented as of this encounter
--- OUTSIDE RECORDS SUMMARY | 2024-06-17 22:17 | XMS_ITS | Encounter Summary ---
[place] [address] Care Team Providers Care Health And Social Care Teacher Name Role Phone Amira Hooks Primary Care Provider [phone] Encounter Details Date Type Department Care Team (Late st Contact Info) Description 06/04/2024 [place] [address] Michelle Reed, RN Social History Tobacco Use [...] 06/04/2024 1:43 PM EDT Copied from CRM #[id number]. Topic: Specialty Dept CRMs - Generic Call [...] 10:00 AM EDT Office Visit Cardiology at [address] [address] Mo Horne MD [facility] [place] [address] 09/21/2024 10:[address] [place] [place] [phone] Rachel Carrasco MD [facility] [address] 09/21/2024 11:00 AM EST [place] [phone] Rachel Carrasco MD [facility] [place] [address] documented as of this encounter Visit Diagnoses Not on filedocumented in this encounter Care Teams Health And Social Care Teacher Relationship Specialty Start Date End Date Amira Hooks PA [address] [place] [address] PCP - General Family Medicine 07/25/22 documented as of this encounter
--- OUTSIDE RECORDS SUMMARY | 2024-06-17 22:17 | XMS_ITS | Encounter Summary ---
[place] [address] Care Team Providers Care Splunk Developer Name Role Phone Amira Hooks Primary Care Provider [phone] Encounter Details Date Type Department Care Team (Late st Contact Info) Description 04/14/2024 [place] [phone] Xenia Mcrae, RN Social History Tobacco Use Types Packs/Day Years Used Date Smoking Tobacco: Former Cigarettes 1.5 15 1 - 2009 Smokeless Tobacco: Former Chew Quit: 2013 Alcohol Use Standard Drinks/Week Comments No 0 (1 standard drink = 0.6 oz pur e alcohol) [facility] Inpatient Questions Answer Date Recorded Does [...] - 04/14/2024 2:07 PM EDT Copied from COUNTS INCLUDE 234 BEDS AT [facility] #[id number]. Topic: Specialty Dept CRMs - Triage >> Apr 14, 2024 12:07 PM Dillan Roberts wrote: Triage Message Specialist: Rachel Carrasco Relationship [...] Office Visit Cardiology at [address] [phone] Mo Horne MD [facility] [place] [address] 09/21/2024 10:[address] [place] [address] Rachel Carrasco MD [facility] [place] [address] 09/21/2024 11:00 AM EST [place] [address] Rachel Carrasco MD [facility] [place] [address] documented as of this encounter Visit Diagnoses Not on filedocumented in this encounter Care Teams Splunk Developer Relationship Specialty Start Date End Date Amira Hooks PA [address] [place] [address] PCP - General Family Medicine 07/25/22 documented as of this encounter
--- OUTSIDE RECORDS SUMMARY | 2024-06-17 22:17 | XMS_ITS | Encounter Summary ---
Author Organization [facility] [place] [address] Care Team Providers Care Corn Lab Technician Name Role Phone Amira Hooks Primary Care Provider Encounter Details Date Type Department Care Team (Late st Contact Info) Description 06/04/2024 Telephone [place] [phone] Xenia Mcrae, RN Social History Tobacco Use Types Packs/Day Years Used Date Smoking Tobacco: Former Cigarettes 1.5 15 1 - 2009 Smokeless Tobacco: Former Chew Quit: 2013 Alcohol Use Standard Drinks/Week Comments No 0 (1 standard drink = 0.6 oz pur e alcohol) [facility] Inpatient Questions Answer Date Recorded Does [...] cysto with stent removal under anesthesia on 06/11/24. Patient will continue anticoagulation as he did [...] AM EDT Office Visit Cardiology at [address] [address] Mo Horne MD [facility] [place] [address] 09/21/2024 10:[address] [place] [phone] Rachel Carrasco MD [facility] [place] [address] 09/21/2024 11:00 AM EST Office [place] [phone] Rachel Carrasco MD [facility] [place] [address] documented as of this encounter Visit Diagnoses Not on filedocumented in this encounter Care Teams Corn Lab Technician Relationship Specialty Start Date End Date Amira Hooks PA [address] [place] [address] PCP - General Family Medicine 07/25/22 documented as of this encounter
--- OUTSIDE RECORDS SUMMARY | 2024-06-17 22:17 | XMS_ITS | Encounter Summary ---
Author Organization [facility] Address [facility] [place] [address] Care Team Providers Care Environmental Compliance Engineer Name Role Phone Amira Hooks Primary Care Provider Encounter Details Date Type Department Care Team (Late st Contact Info) Description 03/08/2024 10:35 AM EDT Anesthesia [place] [address] Luis Manuel Moncada MD [facility] [place] [address] Anesthesia Record Procedure Summary Procedure Name Responsible [...] fossa), left; Anatomical Landmarks; US Not Used; viola; 03/08/24; 1125 03/08/24 1024 by Viola Llamas RN 03/08/24 1125 by Db Wharton [...] Procedure Summary Date: 03/08/24 Room / Location: [facility] ENDO 5 / [facility] ENDOSCOPY Anesthesia Start: 1035 Anesthesia Stop: 1100 [...] Anesthesia Providers: Anesthesiologist: Luis Manuel Moncada MD JET INSPECTOR: Ava Morris CRNA Vitals Value Taken Time BP 103/49 03/08/24 1110 Temp Pulse Resp 14 03/08/24 1110 SpO2 98 % 03/08/24 1120 Pain Level 0 03/08/24 1110 Vitals shown include unfiled device data. Patient Location: PACU/[facility] Level of Consciousness: Awake and Alert Pain [...] y.o. male. Procedure(s): EGD, [facility] Patient Active Problem List Diagnosis Date [...] (WRVU 11.47) performed by Colt Hewitt MD [facility] MAIN OR ??? PRO UNLISTED LAPAROSCOPIC PX LVR N/A 07/21/2018 LAPAROSCOPIC LIVER BIOPSY (WRVU 16.52) performed by Colt Hewitt MD at [facility] MAIN OR ??? PRO UPPER GI ENDOSCOPY, BIOPSY N/A 12/29/2017 UPPER GASTROINTESTINAL ENDOSCOPY,WITH BIOPSY SINGLE OR MULTIPLE (WRVU 2.49) performed by Yusuf Tucker MD at [facility] ENDOSCOPY ??? PRO UPPER GI ENDOSCOPY, DIAGNOSTIC N/A 12/29/2017 EGD, UPPER GI ENDOSCOPY performed by Yusuf Tucker MD at [facility] ENDOSCOPY ??? TONSILLECTOMY Social History Tobacco [...] risks discussed with patient. Plan discussed with JET INSPECTOR. Anesthesia Screening documented in this encounter Plan of Treatment Upcoming Encounters Date Type Department Care Team (Late st Contact Info) Description 06/23/2024 10:00 AM EDT Office Visit Cardiology at [address] [address] Mo Horne MD [facility] [place] [address] 09/21/2024 10:[address] [place] [place] [phone] Rachel Carrasco MD [facility] [place] [address] 09/21/2024 11:00 AM EST [place] [phone] Rachel Carrasco MD [facility] [place] [address] documented as of this encounter Visit Diagnoses [...] mg documented in this encounter Care Teams Environmental Compliance Engineer Relationship Specialty Start Date End Date Amira Hooks PA [address] [address] PCP - General Family Medicine 07/25/22 documented as of this encounter
--- OUTSIDE RECORDS SUMMARY | 2024-06-17 22:17 | XMS_ITS | Encounter Summary ---
Author Organization [facility] Address [facility] [place] [address] Care Team Providers Care Electronics Supervisor Name Role Phone Amira Hooks Primary Care Provider [phone] Encounter Details Date Type Department Care Team (Late st Contact Info) Description 04/10/2024 [place] [phone] Carlos Redd MD [facility] [place] [address] Social History Tobacco Use Types Packs/Day Years [...] Patient calling back, went to ED in [facility] overnight for pain control - had temporary [...] AM EDT Office Visit Cardiology at [address] [address] Mo Horne MD [facility] [place] [address] 09/21/2024 10:[address] [place] [place] [phone] Rachel Carrasco MD [facility] [place] [address] 09/21/2024 11:00 AM EST [place] [address] Rachel Carrasco MD [facility] [place] [address] documented as of this encounter Visit Diagnoses Not on filedocumented in this encounter Care Teams Electronics Supervisor Relationship Specialty Start Date End Date Amira Hooks PA [address] [place] [address] PCP - General Family Medicine 07/25/22 documented as of this encounter
--- OUTSIDE RECORDS SUMMARY | 2024-06-17 22:17 | XMS_ITS | Encounter Summary ---
Author Organization [facility] Address [facility] [place] [address] Care Team Providers Care Derivatives Trader Name Role Phone Amira Hooks Primary Care Provider Encounter Details Date Type Department Care Team (Late st Contact Info) Description 04/09/2024 [place] [phone] Carlos Redd MD [facility] [place] [address] Social History Tobacco Use Types Packs/Day Years [...] however would not likely be able to pharmacy picking tech until tomorrow. Patient does have 2 oxycodone left over from last emergency department visit (10 mg tablets). Discussed that he can try taking 1 of these every 4 hours for pain. The patient and his are opting to go to [facility] emergency department for pain control overnight. We are available if any questions or concerns. documented in this encounter Plan of Treatment Upcoming Encounters Date Type Department Care Team (Late st Contact Info) Description 06/23/2024 10:00 AM EDT Office Visit Cardiology at [address] [address] Mo Horne MD [facility] [place] [address] 09/21/2024 10:[address] [place] [place] [address] Rachel Carrasco MD [facility] [place] [address] 09/21/2024 11:00 AM EST [place] [phone] Rachel Carrasco MD [facility] [place] [address] documented as of this encounter Visit Diagnoses Not on filedocumented in this encounter Care Teams Derivatives Trader Relationship Specialty Start Date End Date Amira Hooks PA [address] [place] [address] PCP - General Family Medicine 07/25/22 documented as of this encounter
--- OUTSIDE RECORDS SUMMARY | 2024-06-17 22:17 | XMS_ITS | Encounter Summary ---
Author Organization [facility] [place] [address] Care Team Providers Care Senior Accounts Payable Specialist Name Role Phone Amira Hooks Primary Care Provider [phone] Reason for Visit * Auth/Cert (Routine) Specialty Diagnoses / Procedures Referred By Zeyad mishra Referred To Contact Diagnoses LEFT URETERAL STONE/HEMATURIA WORK UP Procedures PRO CYSTOURETHROSCOPY PRO PLMT URTRL STENT PRQ PRE-EXISTING NFROS TRACT PRO CYSTO/URETERO/PYELOSCOPY W/LITHOTRIPSY CYSTO, CYSTOURETHROSCOPY, DIAGNOSTIC (WRVU 1.53) PLCMNT URETERAL STENT, PERC, IMG GUIDANCE; EXISTING NEPH TRACT (WRVU 3.96) CYSTOURETEROSCOPY, LITHOTRIPSY (WRVU 7.5) MODIFIER HOLMIUM LASER Rachel Carrasco MD [facility] [place] [address] [facility] Referral ID Status Reason Start Date Expiration Date Visits Re quested Visits Authorized [id number] 1 1 Encounter Details Date Type Department Care Team (Latest Contact Info) Description 04/09/2024 10:00 AM EDT - 04/09/2024 1:48 PM EDT Hospital Encounter [place] [address] Rachel Carrasco MD [facility] [place] [address] Hematuria, unspecified type Discharge Disposition: [...] to urinate please call our office at [phone] before 5PM or [phone] after hours. Call Doctor for: Please call if you have copious blood in your urine, severe back or side pain, pain not controlled by pain medications, persistent nausea and vomiting, or for any fevers greater kvia641.3 F. The number for questions is [phone] before 5 PM weekdays and [phone] after 5 PM and weekends. Pain Medication: [...] 03/26/2024 ipratropium (ATROVENT) 21 mcg (0.03 %) [place], Non-Aerosol INSTILL 2 SPRAYS VIA NOSTRILS AT [...] for 14 days. 28 tablet 03/26/2024 04/09/2024 prucalopride (Motegrity) 2 mg tabletIndications:Chron ic constipation Take 1 tablet by mouth daily. 30 tablet 3 03/02/2024 06/07/2024 oxyCODONE (Roxicodone) 10 mg tablet Take 1 tablet by mouth Three Times Daily for DHE. 02/06/2024 04/10/2024 torsemide (Demadex) 20 mg tablet Take 40 mg by mouth daily. 06/07/2024 documented as of this encounter H&P Notes [...] performed by Colt Hewitt MD [facility] MAIN OR PRO UNLISTED LAPAROSCOPIC PX LVR N/A 07/21/2018 LAPAROSCOPIC LIVER BIOPSY (WRVU 16.52) performed by Colt Hewitt MD at [facility] MAIN OR PRO UPPER GI ENDOSCOPY, BIOPSY N/A 12/29/2017 UPPER GASTROINTESTINAL ENDOSCOPY,WITH BIOPSY SINGLE OR MULTIPLE (WRVU 2.49) performed by Yusuf Tucker MD at [facility] ENDOSCOPY PRO UPPER GI ENDOSCOPY, BIOPSY N/A 03/08/2024 EGD WITH BIOPSY (WRVU 2.39) performed by Radu Silveira MD at [facility] ENDOSCOPY PRO UPPER GI ENDOSCOPY, DIAGNOSTIC N/A 12/29/2017 EGD, UPPER GI ENDOSCOPY performed by Yusuf Tucker MD at [facility] ENDOSCOPY TONSILLECTOMY Allergies: Allergies Allergen Reactions Adenosine [...] Carrasco MD - 04/09/2024 11:54 AM EDT [facility] [place] Patient Name: Rolo Aguilar : [id number] MR#: [id number] Case Date: 04/09/2024 Surgeon: Surgeons and Role: [...] AM EDT Office Visit Cardiology at [address] [place] [address] Mo Horne MD [facility] [place] [address] 09/21/2024 10:[address] [place] [place] [address] Rachel Carrasco MD [facility] [place] [address] 09/21/2024 11:00 AM EST [place] [address] Rachel Carrasco MD [facility] [place] [address] documented as of this encounter Procedures Procedure Name Priority Date/Time Associated Diagnosis Comments XR FLUORO NO RAD <1HR - OR USE Routine 04/09/2024 2:12 PM EDT Cystoscopy, Insert Ureteral Stent ([id number]) Yes 04/09/2024 11:16 AM EDT LEFT URETERAL [...] EDT) Creatinine 0.88 0.80 - 1.50 mg/dL [facility] Est Glomerular Filtration Rate 102 >=60 mL/min/1. 73 m?? [facility] Comment: This patient's estimated GFR [...] In Lab Rachel Carrasco MD CHEMISTRY ORDERABLES [facility] [address] [place] [id number] * Scan Doc: Implantable Devices (04/09/2024 12:00 [...] needed.) documented in this encounter Care Teams Senior Accounts Payable Specialist Relationship Specialty Start Date End Date Amira Hooks PA [address] [place] [address] PCP - General Family Medicine 07/25/22 documented as of this encounter
--- OUTSIDE RECORDS SUMMARY | 2024-06-17 22:17 | XMS_ITS | Encounter Summary ---
[place] [address] Care Team Providers Care Traffic Control Specialist Name Role Phone Amira Hooks Primary Care Provider Encounter Details Date Type Department Care Team (Late st Contact Info) Description 04/01/2024 [place] [address] Michelle Reed, RN Social History Tobacco Use [...] Will also send message to patient through [facility] * Telephone Encounter - Michelle Reed RN [...] RN Sent: 04/01/2024 7:06 AM EDT To: [facility] Urology Nurse Subject: dos 04/09 Good morning, In checking the chart we found no pre-op instructions for Eliquis. Please contact the patient directly with instructions if necessary. Thank you, Gabriel RN PCC documented in this encounter Plan of Treatment Upcoming Encounters Date Type Department Care Team (Late st Contact Info) Description 06/23/2024 10:00 AM EDT Office Visit Cardiology at [address] [address] Mo Horne MD [facility] [place] [address] 09/21/2024 10:[address] [place] [place] [address] Rachel Carrasco MD [facility] [place] [address] 09/21/2024 11:00 AM EST [place] [address] Rachel Carrasco MD [facility] [place] [address] documented as of this encounter Visit Diagnoses Not on filedocumented in this encounter Care Teams Traffic Control Specialist Relationship Specialty Start Date End Date Amira Hooks PA [address] [place] [address] PCP - General Family Medicine 07/25/22 documented as of this encounter
--- OUTSIDE RECORDS SUMMARY | 2024-06-17 22:17 | XMS_ITS | Encounter Summary ---
Author Organization [facility] Address [facility] [place] [address] Care Team Providers Care Overlock Elastic Attacher Name Role Phone Amira Hooks Primary Care Provider Encounter Details Date Type Department Care Team (Latest Contact Info) Description 03/08/2024 10:02 AM EDT - 03/08/2024 11:27 AM EDT Hospital Encounter [place] [address] Radu Silveira MD [facility] [place] [address] Discharge Disposition: Home Social History Tobacco Use Types Packs/Day Years Used Date Smoking Tobacco: Former Cigarettes 1.5 15 1 - 2009 Smokeless Tobacco: Former Chew Quit: 2013 Tobacco Cessation:Counseling Given: Not Answered Alcohol Use Standard Drinks/Week Comments No 0 (1 standard drink = 0.6 oz pur e alcohol) [facility] Inpatient Questions Answer Date Recorded Does [...] the day after the procedure, use an ckgk-lwe-wjjalef spray to numb your throat. Sucking on [...] occurs, please contact your Doctor. Please call [phone] before 8pm Mon-Fri with problems, questions or concerns. If you call after 8pm or on weekends, call the Hospital at [phone] and ask to speak to the Decay Control Operator computer operations specialist and the splitter operator will contact that person for you. When should you call for help? Call [phone] anytime you think you may need emergency [...] any problems. Where can you learn more? [facility] View your After Visit Summary and more online at [email or web address] If you would like to provide [...] cost to you. Content Version: 12.2 ?? [id number] [employer]. Care instructions adapted under license by [facility]. If you have questions about a medical condition or this instruction, always ask your healthcare professional. [employer] disclaims any warranty or liability for your [...] 03/26/2024 ipratropium (ATROVENT) 21 mcg (0.03 %) [place], Non-Aerosol INSTILL 2 SPRAYS VIA NOSTRILS AT [...] times daily. 120 tablet 3 03/26/2024 03/26/2024 prucalopride (Motegrity) 2 mg tabletIndications:Chron ic [...] Operative Note Patient Name: Rolo Aguilar : [id number] MR#: [id number] Case Date: 03/08/2024 Surgeon: Surgeon(s) and Role: * Radu Silveira MD - Primary Procedure(s): EGD WITH BIOPSY (WRVU 2.39) Please see Provation report for details. documented in this encounter Plan of Treatment Upcoming Encounters Date Type Department Care Team (Late st Contact Info) Description 06/23/2024 10:00 AM EDT Office Visit Cardiology at [address] [address] Mo Horne MD [facility] [place] [address] 09/21/2024 10:[address] [place] [phone] Rachel Carrasco MD [facility] [place] [address] 09/21/2024 11:00 AM EST Office [place] [phone] Rachel Carrasco MD [facility] [place] [address] documented as of this encounter Procedures Procedure Name Priority Date/Time Associated Diagnosis Comments SPECIMEN TO PATHOLOGY Routine 03/08/2024 10:54 AM EDT SPECIMEN TO PATHOLOGY Routine 03/08/2024 10:54 AM EDT SPECIMEN TO PATHOLOGY Routine 03/08/2024 10:54 AM EDT SURGICAL PATHOLOGY REPORT Routine 03/08/2024 10:49 AM EDT Upper Gi Endoscopy, Biopsy ([id number]) 03/08/2024 10:38 AM EDT Dyspepsia Screening for colon cancer documented in this encounter Results * Specimen to Pathology (03/08/2024 10:54 AM EDT) AP Specimen 03/08/2024 10:5 4 AM EDT 03/08/2024 10:54 AM EDT Narrative [facility] - 03/08/2024 10:54 AM EDT Specimen requisition ordered. ??Separate Pathology report to follow Radu Silveira MD PATHOLOGY/CYTOLOGY O RDMARIBEL Performing Organization Address City/[facility]/ZIP [place] [address] * Specimen to Pathology (03/08/2024 10:54 AM EDT) AP Specimen 03/08/2024 10:5 4 AM EDT 03/08/2024 10:54 AM EDT Narrative [facility] - 03/08/2024 10:54 AM EDT Specimen requisition ordered. ??Separate Pathology report to follow Radu Silveira MD PATHOLOGY/CYTOLOGY O ORIANA Performing Organization Address [facility]/[place]IP [place] [address] * Specimen to Pathology (03/08/2024 10:54 AM EDT) AP Specimen 03/08/2024 10:5 4 AM EDT 03/08/2024 10:54 AM EDT Narrative [facility] - 03/08/2024 10:54 AM EDT Specimen requisition ordered. ??Separate Pathology report to follow Radu Silveira MD PATHOLOGY/CYTOLOGY O RDMARIBEL Performing Organization Address [facility]/ZIP Co de Phone Number [facility] [place] [address] * Surgical Pathology Report (03/08/2024 10:49 AM EDT) Final Diagnosis [id number] ? Location: 4T; EA11; A The signing [...] Tyson Verified: ??03/19/2024 15:53 ??Pathologist Performed at: ??[facility] Dept. of Pathology, [place] [address] Cleaning Staff Supervisor: Rosendo Hawkins MD, FCAP, ??CLIA Certificate: [id number] SPECIMEN(S) SUBMITTED A - duodenal biopsies, biopsy [...] labeled C1. ??sdy 03/19/2024 3:53 PM EDT [facility] GI Biopsy 03/08/2024 10:4 9 AM EDT 03/08/2024 10:49 AM EDT GI Biopsy 03/08/2024 10:4 9 AM EDT 03/08/2024 10:49 AM EDT GI Biopsy 03/08/2024 10:4 9 AM EDT 03/08/2024 10:49 AM EDT Radu Silveira MD PATHOLOGY/CYTOLOGY O RDERABLES [facility] [place] [id number] documented in this encounter Visit Diagnoses Not [...] CRNA) documented in this encounter Care Teams Overlock Elastic Attacher Relationship Specialty Start Date End Date Amira Hooks PA [address] [place] [address] PCP - General Family Medicine 07/25/22 documented as of this encounter
--- OUTSIDE RECORDS SUMMARY | 2024-06-17 22:17 | XMS_ITS | Encounter Summary ---
Author Organization [facility] Address [facility] [place] [address] Care Team Providers Care Application Development Intern Name Role Phone Amira Hooks Primary Care Provider Encounter Details Date Type Department Care Team (Late st Contact Info) Description 05/03/2024 [place] [address] Abelino Lazar MD [facility] [place] [address] Social History Tobacco Use Types Packs/Day Years [...] AM EDT Office Visit Cardiology at [address] [place] [address] Mo Horne MD [facility] [place] [address] 09/21/2024 10:[address] [place] [place] [address] Rachel Carrasco MD [facility] [place] [address] 09/21/2024 11:00 AM EST [place] [phone] Rachel Carrasco MD [facility] [place] [address] documented as of this encounter Visit Diagnoses Not on filedocumented in this encounter Care Teams Application Development Intern Relationship Specialty Start Date End Date Amira Hooks PA [address] [place] [address] PCP - General Family Medicine 07/25/22 documented as of this encounter
--- OUTSIDE RECORDS SUMMARY | 2024-06-17 22:17 | XMS_ITS | Encounter Summary ---
Author Organization [facility] [place] [address] Care Team Providers Care Monorail Crane Operator Name Role Phone Amira Hooks Primary Care Provider [phone] Reason for Visit * Auth/Cert (Routine) Specialty Diagnoses / Procedures Referred By Zeyad mishra Referred To Contact Diagnoses Nephrolithiasis right ureteral stone Procedures PRO CYSTO/URETEROSCOPY W/LITHOTRIPSY INC INDWELLING STENT INSERTION CYSTOURETEROSCOPY,DIAGNOSTI C,W/ LITHOTRIPSY INC. INSERTION OF INDWELLING URETERAL STENT (WRVU 8) MODIFIER HOLMIUM LASER Rachel Carrasco MD [facility] [place] [place] [address] [facility] Referral ID Status Reason Start Date Expiration Date Visits Re quested Visits Authorized [id number] 1 1 Encounter Details Date Type Department Care Team (Latest Contact Info) Description 05/24/2024 6:15 AM EDT - 05/24/2024 11:03 AM EDT Hospital Encounter [place] [address] Rachel Carrasco MD [facility] [place] [place] [address] Nephrolithiasis Discharge Disposition: Home Social History Tobacco [...] blood clots The number for questions is [phone] before 5 PM weekdays and [phone] after 5 PM and weekends if questions [...] stent removal in 1 week. Please call [phone] if you do not hear from the [...] Center 06/07/2024 2:00 PM Joan Castro MD [facility] GASTRO [facility] 06/23/2024 10:00 AM Mo Horne MD [facility] documented in this encounter Medications at Time [...] 03/26/2024 ipratropium (ATROVENT) 21 mcg (0.03 %) [place], Non-Aerosol INSTILL 2 SPRAYS VIA NOSTRILS AT [...] for 2 days. 4 capsule 05/24/2024 05/26/2024 prucalopride (Motegrity) 2 mg tabletIndications:Chron ic constipation Take 1 tablet by mouth daily. 30 tablet 3 03/02/2024 06/07/2024 torsemide (Demadex) 20 mg tablet Take 40 mg by mouth daily. 06/07/2024 documented as of this encounter Progress Notes [...] 2.82) performed by Rachel Carrasco MD at [facility] MAIN OR PRO LAP, CHOLECYSTECTOMY/GRAPH N/A 07/21/2018 LAPAROSCOPIC CHOLECYSTECTOMY WITH CHOLANGIOGRAM (WRVU 11.47) performed by Colt Hewitt MD [facility] MAIN OR PRO UNLISTED LAPAROSCOPIC PX LVR N/A 07/21/2018 LAPAROSCOPIC LIVER BIOPSY (WRVU 16.52) performed by Colt Hewitt MD at [facility] MAIN OR PRO UPPER GI ENDOSCOPY, BIOPSY N/A 12/29/2017 UPPER GASTROINTESTINAL ENDOSCOPY,WITH BIOPSY SINGLE OR MULTIPLE (WRVU 2.49) performed by Yusuf Tucker MD at [facility] ENDOSCOPY PRO UPPER GI ENDOSCOPY, BIOPSY N/A 03/08/2024 EGD WITH BIOPSY (WRVU 2.39) performed by Radu Silveira MD at [facility] ENDOSCOPY PRO UPPER GI ENDOSCOPY, DIAGNOSTIC N/A 12/29/2017 EGD, UPPER GI ENDOSCOPY performed by Yusuf Tucker MD at [facility] ENDOSCOPY TONSILLECTOMY ALLERGIES Allergies Allergen Reactions [...] 3 ipratropium (ATROVENT) 21 mcg (0.03 %) [place], Non-Aerosol INSTILL 2 SPRAYS VIA NOSTRILS AT [...] Operative Note Patient Name: Rolo Aguilar : [id number] MR#: [id number] Case Date: 05/24/2024 Surgeon: Surgeons and Role: [...] Carrasco MD - 05/24/2024 8:28 AM EDT [facility] Operative Note Patient Name: Rolo Aguilar : [id number] MR#: [id number] Case Date: 05/24/2024 Surgeon: Surgeons and Role: [...] open procedures, cardiopulmonary failure, DVT, PE, Stroke, OH, and other anesthetic risks. With an understanding [...] AM EDT Office Visit Cardiology at [address] [place] [address] Mo Horne MD [facility] [place] [address] 09/21/2024 10:[address] [place] [address] Rachel Carrasco MD [facility] [place] [address] 09/21/2024 11:00 AM EST Office [place] [address] Rachel Carrasco MD [facility] [place] [place] [address] documented as of this encounter Procedures Procedure Name Priority Date/Time Associated Diagnosis Comments XR FLUORO NO RAD <1HR - OR USE Routine 05/24/2024 9:46 AM EDT KIDNEY STONE ANALYSIS Routine 05/24/2024 9:23 AM EDT SPECIMEN TO PATHOLOGY Routine 05/24/2024 9:23 AM EDT MODIFIER HOLMIUM LASER Yes 05/24/2024 7:38 AM EDT Nephrolithiasis Cysto/Ureteroscopy W/Lithotripsy Inc Indwelling Stent Insertion ([id number]) Yes 05/24/2024 7:38 AM EDT Nephrolithiasis POCT [...] No interpretation was done. Rachel Carrasco MD [facility] FLUORO ORDERABLE S * Kidney Stone Analysis (05/24/2024 9:23 AM EDT) Pathologist [facility] Kidney Stone Analysis (MAY) Test ? Result [...] developed and its performance characteristics ?determined by [facility] in a manner consistent with CLIA ?requirements. This test has not been cleared or approved by ?the U.S. Food and Drug Administration. ?Test Performed by: ?[facility] ?[address] [place] [address] ?Crm Solution Architect: Pippa Traore Ph.D.; CLIA# [id number] [facility] Calculus Other / Unknown 05/24/2024 9 :23 AM EDT 05/24/2024 3:58 PM EDT Narrative Resulting Agency Comment Spec In Lab Rachel Carrasco MD LAB SEND OUT ORDERAB LES [facility] [place] [address] * Specimen to Pathology (05/24/2024 9:23 AM EDT) AP Specimen 05/24/2024 9:23 AM EDT 05/24/2024 9:23 AM EDT Narrative [facility] - 05/24/2024 9:23 AM EDT Specimen requisition ordered. ??Separate Pathology report to follow Rachel Carrasco MD PATHOLOGY/CYTOLOGY O RDMARIBEL Performing Organization Address [facility] Co de Phone Number [facility] [place] [address] * POCT Glucose (05/24/2024 6:44 AM EDT) Glucose, POC 116 65 - 199 mg/dL [facility] Comment: Supplemental ranges: <140 mg/dL before meals <180 mg/dL all other times of the day Blood 05/24/2024 6:44 AM EDT 05/24/2024 6:44 AM EDT Rachel Carrasco MD POINT OF CARE TEST O RDERABLES Performing Organization Address [facility] Co de Phone Number [facility] [place] [address] * Scan Doc: Implantable Devices (05/24/2024 12:00 [...] (Due) documented in this encounter Care Teams Monorail Crane Operator Relationship Specialty Start Date End Date Amira Hooks PA [address] [address] PCP - General Family Medicine 07/25/22 documented as of this encounter
--- OUTSIDE RECORDS SUMMARY | 2024-06-17 22:17 | XMS_ITS | Encounter Summary ---
Author Organization [facility] Address [facility] [place] [address] Care Team Providers Care Field Sales Agent Name Role Phone Amira Hooks Primary Care Provider Encounter Details Date Type Department Care Team (Late st Contact Info) Description 05/21/2024 [place] [address] Jose Juan Anton MD [facility] [place] [address] Social History Tobacco Use Types Packs/Day Years [...] AM EDT Office Visit Cardiology at [address] [address] Mo Horne MD [place] [address] 09/21/2024 10:[address] [place] [place] [address] Rachel Carrasco MD [facility] [place] [address] 09/21/2024 11:00 AM EST [place] [address] Rachel Carrasco MD [facility] [place] [address] documented as of this encounter Visit Diagnoses Not on filedocumented in this encounter Care Teams Field Sales Agent Relationship Specialty Start Date End Date Amira Hooks PA [address] [place] [address] PCP - General Family Medicine 07/25/22 documented as of this encounter
--- OUTSIDE RECORDS SUMMARY | 2024-06-17 22:17 | XMS_ITS | Encounter Summary ---
[place] [address] Care Team Providers Care Second Baker Name Role Phone Amira Hooks Primary Care Provider Encounter Details Date Type Department Care Team (Late st Contact Info) Description 04/27/2024 [place] [address] Michelle Reed, RN Social History Tobacco Use [...] 04/27/2024 3:10 PM EDT Copied from CRM #[id number]. Topic: Specialty Dept CRMs - Triage >> [...] AM EDT Office Visit Cardiology at [address] [place] [address] Mo Horne MD [facility] [place] [address] 09/21/2024 10:[address] [place] [place] [address] Rachel Carrasco MD [facility] [place] [address] 09/21/2024 11:00 AM EST Office [place] [address] Rachel Carrasco MD [facility] [place] [address] documented as of this encounter Visit Diagnoses Not on filedocumented in this encounter Care Teams Second Baker Relationship Specialty Start Date End Date Amira Hooks PA [address] [place] [address] PCP - General Family Medicine 07/25/22 documented as of this encounter
--- OUTSIDE RECORDS SUMMARY | 2024-06-17 22:17 | XMS_ITS | Encounter Summary ---
[place] [address] Care Team Providers Care Database Developer Name Role Phone Amira Hooks Primary Care Provider Encounter Details Date Type Department Care Team (Late st Contact Info) Description 05/17/2024 [place] [phone] Xenia Mcrae, RN Social History Tobacco Use Types Packs/Day Years Used Date Smoking Tobacco: Former Cigarettes 1.5 15 1 - 2009 Smokeless Tobacco: Former Chew Quit: 2013 Alcohol Use Standard Drinks/Week Comments No 0 (1 standard drink = 0.6 oz pur e alcohol) [facility] Inpatient Questions Answer Date Recorded Does Anyone [...] 05/17/2024 1:34 PM EDT Copied from CRM #[id number]. Topic: Specialty Dept CRMs - Generic Call >> May 17, 2024 1:20 PM Maria Rodriguez wrote: Specialist: Rachel Carrasco MD Relationship (if other than patient-full name): Keily from [facility] [facility] Reason for Call: Keily states patient is at lab to have Urine culture Clean Catch Urine but ordershave not been received. Please fax orders to [phone] or call Keily at [phone]. documented in this encounter Plan of Treatment Upcoming Encounters Date Type Department Care Team (Late st Contact Info) Description 06/23/2024 10:00 AM EDT Office Visit Cardiology at [address] [address] Mo Horne MD [facility] [place] [address] 09/21/2024 10:[address] [place] [place] [address] Rachel Carrasco MD [facility] [address] 09/21/2024 11:00 AM EST [place] [address] Rachel Carrasco MD [facility] [place] [address] documented as of this encounter Visit Diagnoses Not on filedocumented in this encounter Care Teams Database Developer Relationship Specialty Start Date End Date Amira Hooks PA [address] [place] [address] PCP - General Family Medicine 07/25/22 documented as of this encounter
--- OUTSIDE RECORDS SUMMARY | 2024-06-17 22:17 | XMS_ITS | Encounter Summary ---
Author Organization [facility] [place] [address] Care Team Providers Care Jewelry Polisher Name Role Phone Amira Hooks Primary Care [...] 7.5) MODIFIER HOLMIUM LASER Rachel Carrasco MD [facility] [place] [address] [facility] Referral ID Status Reason Start Date Expiration Date Visits Re quested Visits Authorized [id number] 1 1 Encounter Details Date Type Department Care Team (Late st Contact Info) Description 04/09/2024 11:16 AM EDT Anesthesia Event [place] [phone] Amarjit Beth MD [facility] [place] [address] Marii Nieves CRNA [facility] [place] [address] Anesthesia Record Procedure Summary Procedure Name Responsible Anesthesiologist Anesthesia Start Time Anesthesia Stop Time CYSTO, STENT PLACEMENT (WRVU 2.82) (Right: Ureter) Amarjit eBth MD 04/09/24 1116 04/09/24 1253 Events Date [...] Type Details Placement Removal PIV 04/09/24; 1057; tfjy-dnf-uqvgcb catheter system; 20 gauge; median vein (underside [...] Procedure Summary Date: 04/09/24 Room / Location: [facility] OR [facility] MAIN OR Anesthesia Start: 1116 Anesthesia Stop: 1253 Procedure: CYSTO, STENT PLACEMENT (WRVU 2.82) (Right: Ureter) Diagnosis: (LEFT URETERAL STONE/HEMATURIA WORK UP) Surgeons: Rachel Carrasco MD Responsible Provider: Amarjit Beth MD Anesthesia Type: general ASA Status: 3 All Anesthesia Providers: Anesthesiologist: Amarjit Beth MD TRAVERTINE INSTALLER: Marii Nieves CRNA Vitals Value Taken Time BP 121/56 04/09/24 1300 Temp 36.9 ??C (98.4 ??F) 04/09/24 1252 Pulse Resp 16 04/09/24 1252 SpO2 96 % 04/09/24 1306 Pain Level 0 04/09/24 1252 Vitals shown include unfiled device data. Patient Location: PACU/[facility] Level of Consciousness: [...] Colt Hewitt MD [facility] MAIN OR ??? PRO UNLISTED LAPAROSCOPIC PX LVR N/A 07/21/2018 LAPAROSCOPIC LIVER BIOPSY (WRVU 16.52) performed by Colt Hewitt MD at [facility] MAIN OR ??? PRO UPPER GI ENDOSCOPY, BIOPSY N/A 12/29/2017 UPPER GASTROINTESTINAL ENDOSCOPY,WITH BIOPSY SINGLE OR MULTIPLE (WRVU 2.49) performed by Yuusf Tucker MD at [facility] ENDOSCOPY ??? PRO UPPER GI ENDOSCOPY, BIOPSY N/A 03/08/2024 EGD WITH BIOPSY (WRVU 2.39) performed by Radu Silveira MD at [facility] ENDOSCOPY ??? PRO UPPER GI ENDOSCOPY, DIAGNOSTIC N/A 12/29/2017 EGD, UPPER GI ENDOSCOPY performed by Yusuf Tucker MD at [facility] ENDOSCOPY ??? TONSILLECTOMY Social History Tobacco [...] risks discussed with patient. Plan discussed with TRAVERTINE INSTALLER. Anesthesia Screening documented in this encounter Plan of Treatment Upcoming Encounters Date Type Department Care Team (Late st Contact Info) Description 06/23/2024 10:00 AM EDT Office Visit Cardiology at [address] [address] Mo Horne MD [facility] [place] [address] 09/21/2024 10:[address] [place] [phone] Rachel Carrasco MD [facility] [place] [address] 09/21/2024 11:00 AM EST [place] [phone] Rachel Carrasco MD [facility] [place] [address] documented as of this encounter Visit Diagnoses [...] mg documented in this encounter Care Teams Jewelry Polisher Relationship Specialty Start Date End Date Amira Hooks PA [address] [address] PCP - General Family Medicine 07/25/22 documented as of this encounter
--- OUTSIDE RECORDS SUMMARY | 2024-06-17 22:17 | XMS_ITS | Encounter Summary ---
Author Organization [facility] Address [facility] [place] [address] Care Team Providers Care Sample Sawyer Name Role Phone Amira Hooks Primary Care Provider Encounter Details Date Type Department Care Team (Late Contact Info) Description 04/09/2024 [place] [address] [facility] [place] [address] Nephrolithiasis Social History Tobacco Use Types Packs/Day [...] AM EDT Office Visit Cardiology at [address] [place] [address] [facility] [place] [address] 09/21/2024 10:[address] [place] [address] [facility] [place] [address] 09/21/2024 11:00 AM EST [place] [phone] [facility] [place] [address] documented as of this encounter Visit Diagnoses Diagnosis Nephrolithiasis Calculus of kidney documented in this encounter Care Teams Sample Sawyer Relationship Specialty Start Date End Date Amira Hooks PA [address] [place] [address] PCP - General Family Medicine 07/25/22 documented as of this encounter
--- OUTSIDE RECORDS SUMMARY | 2024-06-17 22:17 | XMS_ITS | Encounter Summary ---
[place] [address] Care Team Providers Care Processing Talc And Borate Supervisor Name Role Phone Amira Hooks Primary Care Provider [phone] Encounter Details Date Type Department Care Team (Late st Contact Info) Description 03/16/2024 [place] [address] Michelle Reed, RN Social History Tobacco Use [...] patients spouse. Patient is in ED at [facility] right sided flank pain and hematuria. Patients spouse says ED doctor Carlos Rehman, DO is trying to contact urology * Telephone Encounter - Michelle Reed RN - 03/16/2024 12:27 PM EDT Copied from [facility] #[id number]. Topic: Specialty Dept CRMs - Triage >> [...] AM EDT Office Visit Cardiology at [address] [address] Mo Horne MD [facility] [place] [address] 09/21/2024 10:[address] [place] [place] [address] Rachel Carrasco MD [facility] [address] 09/21/2024 11:00 AM EST [place] [phone] Rachel Carrasco MD [facility] [place] [address] documented as of this encounter Visit Diagnoses Not on filedocumented in this encounter Care Teams Processing Talc And Borate Supervisor Relationship Specialty Start Date End Date Amira Hooks PA [address] [place] [address] PCP - General Family Medicine 07/25/22 documented as of this encounter
--- OUTSIDE RECORDS SUMMARY | 2024-06-17 22:17 | XMS_ITS | Encounter Summary ---
Author Organization [facility] Address [facility] [place] [address] Care Team Providers Care Operator And Truck Driver Name Role Phone Amira Hooks Primary Care Provider [phone] Encounter Details Date Type Department Care Team (Latest Contact Info) Description 04/09/2024 2:11 PM EDT - 04/09/2024 11:59 PM EDT Hospital Encounter XRay at [address] [place] [address] Rachel Carrasco MD [facility] [place] [address] Discharge Disposition: Home Social History Tobacco Use [...] 03/26/2024 ipratropium (ATROVENT) 21 mcg (0.03 %) [place], Non-Aerosol INSTILL 2 SPRAYS VIA NOSTRILS AT [...] 3 times daily as needed for Anxiety. prucalopride (Motegrity) 2 mg tabletIndications:Chron ic constipation Take 1 tablet by mouth daily. 30 tablet 3 03/02/2024 06/07/2024 oxyCODONE (Roxicodone) 10 mg tablet Take 1 tablet by mouth Three Times Daily for DHE. 02/06/2024 04/10/2024 torsemide (Demadex) 20 mg tablet Take 40 mg by mouth daily. 06/07/2024 documented as of this encounter Plan of Treatment Upcoming Encounters Date Type Department Care Team (Late st Contact Info) Description 06/23/2024 10:00 AM EDT Office Visit Cardiology at [address] [address] Mo Horne MD [facility] [place] [address] 09/21/2024 10:[address] [place] [address] Rachel Carrasco MD [facility] [place] [address] 09/21/2024 11:00 AM EST Office [place] [phone] Rachel Carrasco MD [facility] [place] [address] documented as of this encounter Procedures Procedure [...] on filedocumented in this encounter Care Teams Operator And Truck Driver Relationship Specialty Start Date End Date Amira Hooks PA [address] [place] [address] PCP - General Family Medicine 07/25/22 documented as of this encounter
--- OUTSIDE RECORDS SUMMARY | 2024-06-17 22:17 | XMS_ITS | Encounter Summary ---
[place] [address] Care Team Providers Care Trigonometry Teacher Name Role Phone Amira Hooks Primary Care Provider Reason for Visit * Reason Onset Date Comments Triage 03/31/2024 Flank pain Encounter Details Date Type Department Care Team (Late st Contact Info) Description 03/31/2024 [place] [phone] Joss Johnson, pharm tech (Flank pain) Social History Tobacco Use Types [...] symptom begin 03/16. Patient was seen a [facility] on 03/16 for excruciating pain from a [...] said that he was told by his try on baster that he cannot take Ibuprofen because he [...] - 03/31/2024 3:37 PM EDT Copied from [facility] #[id number]. Topic: Specialty Dept CRMs - Triage >> [...] 03/16 Additional Comments: Patient was seen a [facility] on 03/16 for excruciating pain from a [...] AM EDT Office Visit Cardiology at [address] [place] [phone] Mo Horne MD [facility] [place] [address] 09/21/2024 10:[address] [place] [phone] Rachel Carrasco MD [facility] [place] [address] 09/21/2024 11:00 AM EST Office Visit Urology at [facility] [place] [phone] Rachel Carrasco MD [facility] [place] [address] documented as of this encounter Visit Diagnoses Not on filedocumented in this encounter Care Teams Trigonometry Teacher Relationship Specialty Start Date End Date Amira Hooks PA [address] [place] [address] PCP - General Family Medicine 07/25/22 documented as of this encounter
--- OUTSIDE RECORDS SUMMARY | 2024-06-17 22:17 | XMS_ITS | Encounter Summary ---
Author Organization [facility] Address [facility] [place] [address] Care Team Providers Care Recyclable Materials Distributor Name Role Phone Amira Hooks Primary Care Provider Encounter Details Date Type Department Care Team (Late st Contact Info) Description 05/14/2024 [place] [address] Arron Sparks MD [facility] [place] [address] Social History Tobacco Use Types Packs/Day Years [...] AM EDT Office Visit Cardiology at [address] [address] Mo Horne MD [facility] [place] [address] 09/21/2024 10:[address] [place] [place] [phone] Rachel Carrasco MD [facility] [place] [address] 09/21/2024 11:00 AM EST [place] [phone] Rachel Carrasco MD [facility] [place] [address] documented as of this encounter Visit Diagnoses Not on filedocumented in this encounter Care Teams Recyclable Materials Distributor Relationship Specialty Start Date End Date Amira Hooks PA [address] [place] [address] PCP - General Family Medicine 07/25/22 documented as of this encounter
--- OUTSIDE RECORDS SUMMARY | 2024-06-17 22:17 | XMS_ITS | Encounter Summary ---
[place] [address] Care Team Providers Care Environmental Sampling Technician Name Role Phone Amira Hooks Primary Care Provider Encounter Details Date Type Department Care Team (Late st Contact Info) Description 04/12/2024 [place] [phone] Xenia Mcrae, RN Social History Tobacco Use [...] - 04/12/2024 2:19 PM EDT Copied from [facility] #[id number]. Topic: Specialty Dept CRMs - Triage >> [...] AM EDT Office Visit Cardiology at [address] [place] [address] Mo Horne MD [facility] [place] [address] 09/21/2024 10:[address] [place] [place] [address] Rachel Carrasco MD [facility] [place] [address] 09/21/2024 11:00 AM EST [place] [phone] Rachel Carrasco MD [facility] [place] [address] documented as of this encounter Visit Diagnoses Not on filedocumented in this encounter Care Teams Environmental Sampling Technician Relationship Specialty Start Date End Date Amira Hooks PA [address] [place] [address] PCP - General Family Medicine 07/25/22 documented as of this encounter
--- OUTSIDE RECORDS SUMMARY | 2024-06-17 22:17 | XMS_ITS | Encounter Summary ---
[place] [address] Care Team Providers Care Resident Care Spec Name Role Phone Amira Hooks Primary Care Provider [phone] Encounter Details Date Type Department Care Team (Late st Contact Info) Description 04/09/2024 [place] [phone] Xenia Mcrae, RN Social History Tobacco Use Types Packs/Day Years Used Date Smoking Tobacco: Former Cigarettes 1.5 15 1 - 2009 Smokeless Tobacco: Former Chew Quit: 2013 Alcohol Use Standard Drinks/Week Comments No 0 (1 standard drink = 0.6 oz pur e alcohol) [facility] Inpatient Questions Answer Date Recorded [...] Progress Notes * Xenia Mcrae RN - 04/09/2024 3:26 PM EDT [...] - 04/09/2024 3:23 PM EDT Copied from [facility] #[id number]. Topic: Specialty Dept CRMs - Triage >> [...] AM EDT Office Visit Cardiology at [address] [place] [phone] Mo Horne MD [facility] [place] [address] 09/21/2024 10:[address] [place] [place] [phone] Rachel Carrasco MD [facility] [place] [address] 09/21/2024 11:00 AM EST [place] [address] Rachel Carrasco MD [facility] [place] [address] documented as of this encounter Visit Diagnoses Not on filedocumented in this encounter Care Teams Resident Care Spec Relationship Specialty Start Date End Date Amira Hooks PA [address] [place] [address] PCP - General Family Medicine 07/25/22 documented as of this encounter
--- OUTSIDE RECORDS SUMMARY | 2024-06-17 22:17 | XMS_ITS | Encounter Summary ---
Author Organization [facility] Address [facility] [place] [address] Care Team Providers Care Machine Stuffer Automatic Name Role Phone Amira Hooks Primary Care Provider Encounter Details Date Type Department Care Team (Late st Contact Info) Description 03/08/2024 11:00 AM EDT - 03/08/2024 11:30 AM EDT Surgery [place] [address] Radu Silveira MD [facility] [place] [address] EGD WITH BIOPSY (WRVU 2.39) Social History [...] the day after the procedure, use an nblr-nsr-tzcsakb spray to numb your throat. Sucking on [...] occurs, please contact your Doctor. Please call [phone] before 8pm Mon-Fri with problems, questions or concerns. If you call after 8pm or on weekends, call the Hospital at [phone] and ask to speak to the Accounts Receivable Clerk business system consultant and the stretcher leveler operator will contact that person for you. When should you call for help? Call [phone] anytime you think you may need emergency [...] any problems. Where can you learn more? [facility] View your After Visit Summary and more online at [email or web address] If you would like to provide [...] cost to you. Content Version: 12.2 ?? [id number] [employer]. Care instructions adapted under license by [facility]. If you have questions about a medical condition or this instruction, always ask your healthcare professional. [employer] disclaims any warranty or liability for your [...] 03/26/2024 ipratropium (ATROVENT) 21 mcg (0.03 %) [place], Non-Aerosol INSTILL 2 SPRAYS VIA NOSTRILS AT [...] Operative Note Patient Name: Rolo Aguilar : [id number] MR#: [id number] Case Date: 03/08/2024 Surgeon: Surgeon(s) and Role: * Radu Silveira MD - Primary Procedure(s): EGD WITH BIOPSY (WRVU 2.39) Please see Provation report for details. documented in this encounter Plan of Treatment Upcoming Encounters Date Type Department Care Team (Late st Contact Info) Description 06/23/2024 10:00 AM EDT Office Visit Cardiology at [address] [address] Mo Horne MD [facility] [place] [address] 09/21/2024 10:[address] [place] [phone] Rachel Carrasco MD [facility] [place] [address] 09/21/2024 11:00 AM EST Office [place] [address] Rachel Carrasco MD [facility] [place] [address] documented as of this encounter Procedures Procedure Name Priority Date/Time Associated Diagnosis Comments SPECIMEN TO PATHOLOGY Routine 03/08/2024 10:54 AM EDT SPECIMEN TO PATHOLOGY Routine 03/08/2024 10:54 AM EDT SPECIMEN TO PATHOLOGY Routine 03/08/2024 10:54 AM EDT SURGICAL PATHOLOGY REPORT Routine 03/08/2024 10:49 AM EDT Upper Gi Endoscopy, Biopsy ([id number]) 03/08/2024 10:38 AM EDT Dyspepsia Screening for colon cancer documented in this encounter Results * Specimen to Pathology (03/08/2024 10:54 AM EDT) AP Specimen 03/08/2024 10:5 4 AM EDT 03/08/2024 10:[address] [facility] - 03/08/2024 10:54 AM EDT Specimen requisition ordered. ??Separate Pathology report to follow Radu Silveira MD PATHOLOGY/CYTOLOGY O RDMARIBEL Performing Organization Address City/[facility]/[place] [address] * Specimen to Pathology (03/08/2024 10:54 AM EDT) AP Specimen 03/08/2024 10:5 4 AM EDT 03/08/2024 10:[address] [facility] - 03/08/2024 10:54 AM EDT Specimen requisition ordered. ??Separate Pathology report to follow Radu Silveira MD PATHOLOGY/CYTOLOGY O RDMARIBEL Performing Organization Address [facility]/[place] [address] * Specimen to Pathology (03/08/2024 10:54 AM EDT) AP Specimen 03/08/2024 10:5 4 AM EDT 03/08/2024 10:[address] [facility] - 03/08/2024 10:54 AM EDT Specimen requisition ordered. ??Separate Pathology report to follow Radu Silveira MD PATHOLOGY/CYTOLOGY O RDMARIBEL Performing Organization Address City/[facility]/[place] [address] * Surgical Pathology Report (03/08/2024 10:49 AM EDT) Final Diagnosis [id number] ? Location: 4T; EA11; A The signing [...] MD Verified: ??03/19/2024 15:53 ??Pathologist Performed at: ??-[facility] Dept. of Pathology, [place] [address] Data Modeler: Rosendo Hawkins MD, FCAP, ??CLIA Certificate: [id number] SPECIMEN(S) SUBMITTED A - duodenal biopsies, biopsy [...] labeled C1. ??sdy 03/19/2024 3:[address] [facility] GI Biopsy 03/08/2024 10:4 9 AM EDT 03/08/2024 10:49 AM EDT GI Biopsy 03/08/2024 10:4 9 AM EDT 03/08/2024 10:49 AM EDT GI Biopsy 03/08/2024 10:4 9 AM EDT 03/08/2024 10:49 AM EDT Radu Silveira MD PATHOLOGY/CYTOLOGY O RDERABLES [facility] [place] [address] documented in this encounter Visit Diagnoses Diagnosis [...] CRNA) documented in this encounter Care Teams Machine Stuffer Automatic Relationship Specialty Start Date End Date Amira Hooks PA [address] [address] PCP - General Family Medicine 07/25/22 documented as of this encounter
--- OUTSIDE RECORDS SUMMARY | 2024-06-17 22:17 | XMS_ITS | Encounter Summary ---
Author Organization [facility] Address [facility] [place] [address] Care Team Providers Care Tool Maintenance Worker Name Role Phone Amira Hooks Primary Care Provider Encounter Details Date Type Department Care Team (Late st Contact Info) Description 06/02/2024 [place] [phone] Shai Mckeon PA [facility] [place] [address] Social History Tobacco Use Types Packs/Day Years [...] picture of pink tinged yellow urine through [facility] which he was anxious about. Continues [...] AM EDT Office Visit Cardiology at [address] [place] [address] Mo Horne MD [facility] [place] [address] 09/21/2024 10:[address] [place] [address] Rachel Carrasco MD [facility] [place] [address] 09/21/2024 11:00 AM EST Office [place] [address] Rachel Carrasco MD [facility] [place] [address] documented as of this encounter Visit Diagnoses Not on filedocumented in this encounter Care Teams Tool Maintenance Worker Relationship Specialty Start Date End Date Amira Hooks PA [address] [place] [address] PCP - General Family Medicine 07/25/22 documented as of this encounter
--- OUTSIDE RECORDS SUMMARY | 2024-06-17 22:17 | XMS_ITS | Encounter Summary ---
[place] [address] Care Team Providers Care Sales And Marketing Associate Name Role Phone Amira Hooks Primary Care Provider Encounter Details Date Type Department Care Team (Late st Contact Info) Description 03/31/2024 [place] [address] Joss Johnson, RN Social History Tobacco Use Types Packs/Day Years Used Date Smoking Tobacco: Former Cigarettes 1.5 15 1 - 2009 Smokeless Tobacco: Former Chew Quit: 2013 Alcohol Use Standard Drinks/Week Comments No 0 (1 standard drink = 0.6 oz pur e alcohol) [facility] Inpatient Questions Answer Date Recorded Does Anyone [...] 03/31/2024 3:36 PM EDT Copied from [facility] #[id number]. Topic: Specialty Dept CRMs - Triage >> [...] 03/16 Additional Comments: Patient was seen a [facility] on 03/16 for excruciating pain from [...] AM EDT Office Visit Cardiology at [address] [phone] Mo Horne MD [facility] [place] [address] 09/21/2024 10:[address] [place] [place] [address] Rachel Carrasco MD [facility] [place] [address] 09/21/2024 11:00 AM EST [place] [address] Rachel Carrasco MD [facility] [place] [address] documented as of this encounter Visit Diagnoses Not on filedocumented in this encounter Care Teams Sales And Marketing Associate Relationship Specialty Start Date End Date Amira Hooks PA [address] [place] [address] PCP - General Family Medicine 07/25/22 documented as of this encounter
--- OUTSIDE RECORDS SUMMARY | 2024-06-17 22:17 | XMS_ITS | Encounter Summary ---
Author Organization [facility] Address [facility] [place] [address] Care Team Providers Care Addressograph Operator Name Role Phone Amira Hooks Primary Care Provider Encounter Details Date Type Department Care Team (Late st Contact Info) Description 06/04/2024 [place] [address] Jose Juan Anton MD [facility] [place] [address] Social History Tobacco Use Types Packs/Day Years [...] AM EDT Office Visit Cardiology at [address] [address] Mo Horne MD [facility] [place] [address] 09/21/2024 10:[address] [place] [place] [address] Rachel Carrasco MD [facility] [place] [address] 09/21/2024 11:00 AM EST [place] [address] Rachel Carrasco MD [facility] [place] [address] documented as of this encounter Visit Diagnoses Not on filedocumented in this encounter Care Teams Addressograph Operator Relationship Specialty Start Date End Date Amira Hooks PA [address] [place] [address] PCP - General Family Medicine 07/25/22 documented as of this encounter
--- OUTSIDE RECORDS SUMMARY | 2024-06-17 22:17 | XMS_ITS | Encounter Summary ---
[place] [address] Care Team Providers Care Blockmason Name Role Phone Amira Hooks Primary Care Provider Encounter Details Date Type Department Care Team (Late st Contact Info) Description 05/21/2024 Telephone [place] [address] Michelle Reed, RN Social History Tobacco Use [...] 05/21/2024 12:34 PM EDT Copied from CRM #[id number]. Topic: Specialty Dept CRMs - Generic Call >> May 21, 2024 12:22 PM Nat Miranda wrote: Specialist: Jose Juan Anton MD Relationship [...] AM EDT Office Visit Cardiology at [address] [phone] Mo Horne MD [facility] [place] [address] 09/21/2024 10:[address] [place] [address] Rachel Carrasco MD [facility] [place] [address] 09/21/2024 11:00 AM EST Office [place] [address] Rachel Carrasco MD [facility] [place] [address] documented as of this encounter Visit Diagnoses Not on filedocumented in this encounter Care Teams Blockmason Relationship Specialty Start Date End Date Amira Hooks PA [address] [place] [address] PCP - General Family Medicine 07/25/22 documented as of this encounter
--- OUTSIDE RECORDS SUMMARY | 2024-06-17 22:17 | XMS_ITS | Encounter Summary ---
Author Organization Formerly [facility] Address [facility] [place] [address] Care Team Providers Care Shoe Shanker Name Role Phone Amira Hooks Primary Care Provider Encounter Details Date Type Department Care Team (Late Contact Info) Description 04/27/2024 Orders [place] [address] Nathen Yanez MD [facility] [place] [address] Social History Tobacco Use Types Packs/Day Years [...] AM EDT Office Visit Cardiology at [address] [place] [address] Mo Horne MD [facility] [place] [address] 09/21/2024 10:[address] [place] [address] Rachel Carrasco MD [facility] [place] [address] 09/21/2024 11:00 AM EST Office [place] [address] Rachel Carrasco MD [facility] [place] [address] documented as of this encounter Visit Diagnoses Not on filedocumented in this encounter Care Teams Shoe Shanker Relationship Specialty Start Date End Date Amira Hooks PA [address] [address] PCP - General Family Medicine 07/25/22 documented as of this encounter
--- OUTSIDE RECORDS SUMMARY | 2024-06-17 22:17 | XMS_ITS | Encounter Summary ---
Author Organization [facility]ly [facility] [place] [address] Care Team Providers Care Push Connector Assembler Name Role Phone Amira Hooks Primary [...] 7.5) MODIFIER HOLMIUM LASER Rachel Carrasco MD [facility] [place] [address] [facility] Referral ID Status Reason Start Date Expiration Date Visits Re quested Visits Authorized [id number] 1 1 Encounter Details Date Type Department Care Team (Late st Contact Info) Description 04/09/2024 11:48 AM EDT - 04/09/2024 2:11 PM EDT [place] [address] Rachel Carrasco MD [facility] [place] [address] CYSTO, STENT PLACEMENT (WRVU 2.82) [...] to urinate please call our office at [phone] before 5PM or [phone] after hours. Call Doctor for: Please call if you have copious blood in your urine, severe back or side pain, pain not controlled by pain medications, persistent nausea and vomiting, or for any fevers greater tbpx873.3 F. The number for questions is [phone] before 5 PM weekdays and [phone] after 5 PM and weekends. Pain Medication: [...] 03/26/2024 ipratropium (ATROVENT) 21 mcg (0.03 %) [place], Non-Aerosol INSTILL 2 SPRAYS VIA NOSTRILS AT [...] performed by Colt Hewitt MD [facility] MAIN OR PRO UNLISTED LAPAROSCOPIC PX LVR [...] at [facility] ENDOSCOPY TONSILLECTOMY Allergies: Allergies Allergen [...] Carrasco MD - 04/09/2024 11:54 AM EDT [facility] Operative Note Patient Name: Rolo Aguilar : [id number] MR#: [id number] Case Date: 04/09/2024 Surgeon: Surgeons and Role: [...] AM EDT Office Visit Cardiology at [address] [place] [address] Mo Horne MD [facility] [place] [address] 09/21/2024 10:[address] [place] [address] Rachel Carrasco MD [facility] [address] 09/21/2024 11:00 AM EST Office [place] [address] Rachel Carrasco MD [facility] [place] [address] documented as of this encounter Procedures Procedure Name Priority Date/Time Associated Diagnosis Comments XR FLUORO NO RAD <1HR - OR USE Routine 04/09/2024 2:12 PM EDT Cystoscopy, Insert Ureteral Stent (64132) Yes 04/09/2024 11:16 AM EDT LEFT URETERAL [...] EDT) Creatinine 0.88 0.80 - 1.50 mg/dL [facility] Est Glomerular Filtration Rate 102 >=60 mL/min/1. 73 m?? [facility] Comment: This patient's estimated GFR [...] In Lab Rachel Carrasco MD CHEMISTRY ORDERABLES [facility] [address] [place] [id number] * Scan Doc: Implantable Devices (04/09/2024 12:00 [...] needed.) documented in this encounter Care Teams Push Connector Assembler Relationship Specialty Start Date End Date Amira Hooks PA [address] [place] [address] PCP - General Family Medicine 07/25/22 documented as of this encounter
--- OUTSIDE RECORDS SUMMARY | 2024-06-17 22:17 | XMS_ITS | Encounter Summary ---
[place] [address] Care Team Providers Care Accountant Cost Name Role Phone Amira Hooks Primary Care Provider Encounter Details Date Type Department Care Team (Late Contact Info) Description 04/02/2024 Telephone [place] [address] Michelle Reed, RN Social History Tobacco Use [...] AM EDT Office Visit Cardiology at [address] [phone] Mo Horne MD [facility] [place] [address] 09/21/2024 10:[address] [place] [address] Rachel Carrasco MD [facility] [place] [address] 09/21/2024 11:00 AM EST Office [place] [address] Rachel Carrasco MD [facility] [place] [address] documented as of this encounter Visit Diagnoses Not on filedocumented in this encounter Care Teams Accountant Cost Relationship Specialty Start Date End Date Amira Hooks PA [address] [place] [address] PCP - General Family Medicine 07/25/22 documented as of this encounter
--- OUTSIDE RECORDS SUMMARY | 2024-06-17 22:17 | XMS_ITS | Encounter Summary ---
Author Organization [facility] [place] [address] Care Team Providers Care Rail Washer Name Role Phone Amira Hooks Primary Care Provider Reason for Visit * Auth/Cert (Routine) Specialty Diagnoses / Procedures Referred By Zeyad mishra Referred To Contact Diagnoses Nephrolithiasis right ureteral stone Procedures PRO CYSTO/URETEROSCOPY W/LITHOTRIPSY INC INDWELLING STENT INSERTION CYSTOURETEROSCOPY,DIAGNOSTI C,W/ LITHOTRIPSY INC. INSERTION OF INDWELLING URETERAL STENT (WRVU 8) MODIFIER HOLMIUM LASER Rachel Carrasco MD [facility] [place] [address] [facility] Referral ID Status Reason Start Date Expiration Date Visits Re quested Visits Authorized [id number] 1 1 Encounter Details Date Type Department Care Team (Late st Contact Info) Description 05/24/2024 7:30 AM EDT - 05/24/2024 9:45 AM EDT Surgery [place] [address] Rachel Carrasco MD [facility] [place] [address] CYSTOURETEROSCOPY,DIAG NOSTIC,W/ LITHOTRIPSY INC. INSERTION OF INDWELLING [...] blood clots The number for questions is [phone] before 5 PM weekdays and [phone] after 5 PM and weekends if questions [...] stent removal in 1 week. Please call [phone] if you do not hear from the [...] Center 06/07/2024 2:00 PM Joan Castro MD [facility] GASTRO [facility] 06/23/2024 10:00 AM Mo Horne MD Lit [...] 03/26/2024 ipratropium (ATROVENT) 21 mcg (0.03 %) [place], Non-Aerosol INSTILL 2 SPRAYS VIA NOSTRILS AT [...] of this encounter Progress Notes * Edwige Giang, FLAVIA - 05/24/2024 11:03 AM EDT IV removed, [...] to assess back, pt. Over 400lbs on Amara documented in this encounter H&P Notes * [...] 2.82) performed by Rachel Carrasco MD at [facility] MAIN OR PRO LAP, CHOLECYSTECTOMY/GRAPH N/A 07/21/2018 LAPAROSCOPIC CHOLECYSTECTOMY WITH CHOLANGIOGRAM (WRVU 11.47) performed by Colt Hewitt MD [facility] MAIN OR PRO UNLISTED LAPAROSCOPIC PX LVR N/A 07/21/2018 LAPAROSCOPIC LIVER BIOPSY (WRVU 16.52) performed by Colt Hewitt MD at [facility] MAIN OR PRO UPPER GI ENDOSCOPY, BIOPSY N/A 12/29/2017 UPPER GASTROINTESTINAL ENDOSCOPY,WITH BIOPSY SINGLE OR MULTIPLE (WRVU 2.49) performed by Yusuf Tucker MD at [facility] ENDOSCOPY PRO UPPER GI ENDOSCOPY, BIOPSY N/A 03/08/2024 EGD WITH BIOPSY (WRVU 2.39) performed by Radu Silveira MD at [facility] ENDOSCOPY PRO UPPER GI ENDOSCOPY, DIAGNOSTIC N/A 12/29/2017 EGD, UPPER GI ENDOSCOPY performed by Yusuf Tucker MD at [facility] ENDOSCOPY TONSILLECTOMY ALLERGIES Allergies Allergen [...] 3 ipratropium (ATROVENT) 21 mcg (0.03 %) [place], Non-Aerosol INSTILL 2 SPRAYS VIA NOSTRILS AT [...] Operative Note Patient Name: Rolo Aguilar : [id number] MR#: [id number] Case Date: 05/24/2024 Surgeon: Surgeons and Role: [...] Carrasco MD - 05/24/2024 8:28 AM EDT [facility] Operative Note Patient Name: Rolo Aguilar : [id number] MR#: [id number] Case Date: 05/24/2024 Surgeon: Surgeons and Role: [...] open procedures, cardiopulmonary failure, DVT, PE, Stroke, [place], and other anesthetic risks. With an understanding [...] AM EDT Office Visit Cardiology at [address] [address] Mo Horne MD [facility] [place] [address] 09/21/2024 10:[address] [place] [place] [address] Rachel Carrasco MD [facility] [place] [address] 09/21/2024 11:00 AM EST [place] [address] Rachel Carrasco MD [facility] [place] [address] documented as of this encounter Procedures Procedure Name Priority Date/Time Associated Diagnosis Comments XR FLUORO NO RAD <1HR - OR USE Routine 05/24/2024 9:46 AM EDT KIDNEY STONE ANALYSIS Routine 05/24/2024 9:23 AM EDT SPECIMEN TO PATHOLOGY Routine 05/24/2024 9:23 AM EDT MODIFIER HOLMIUM LASER Yes 05/24/2024 7:38 AM EDT Nephrolithiasis Cysto/Ureteroscopy W/Lithotripsy Inc Indwelling Stent Insertion ([id number]) Yes 05/24/2024 7:38 AM EDT Nephrolithiasis POCT [...] No interpretation was done. Rachel Carrasco MD G FLUORO ORDERABLE S * Kidney Stone Analysis [...] its performance characteristics ?determined by [facility] in a manner consistent with CLIA ?requirements. This test has not been cleared or approved by ?the U.S. Food and Drug Administration. ?Test Performed by: ?[facility] ?[address] [place] [address] ?Vba Developer: Pippa Traore Ph.D.; CLIA# [id number] [facility] Calculus Other / Unknown 05/24/2024 9 :23 AM EDT 05/24/2024 3:58 PM EDT Narrative Resulting Agency Comment Spec In Lab Rachel Carrasco MD LAB SEND OUT ORDERAB LES Performing Organization Address [facility]/ZIP Co de Phone Number [facility] [place] [address] * Specimen to Pathology (05/24/2024 9:23 AM EDT) AP Specimen 05/24/2024 9:23 AM EDT 05/24/2024 9:23 AM EDT Narrative [facility] - 05/24/2024 9:23 AM EDT Specimen requisition ordered. ??Separate Pathology report to follow Rachel Carrasco MD PATHOLOGY/CYTOLOGY O [place] Performing Organization Address [facility] Co de Phone Number [facility] [place] [address] * POCT Glucose (05/24/2024 6:44 AM EDT) Glucose, POC 116 65 - 199 mg/dL [facility] Comment: Supplemental ranges: <140 mg/dL before meals <180 mg/dL all other times of the day Blood 05/24/2024 6:44 AM EDT 05/24/2024 6:44 AM EDT Rachel Carrasco MD POINT OF CARE TEST [address] Performing Organization Address [facility]/ZIP Co de Phone Number [facility] [place] [address] * Scan Doc: Implantable Devices (05/24/2024 12:00 [...] (Due) documented in this encounter Care Teams Rail Washer Relationship Specialty Start Date End Date Amira Hooks PA [address] [place] [address] PCP - General Family Medicine 07/25/22 documented as of this encounter
--- OUTSIDE RECORDS SUMMARY | 2024-06-17 22:18 | XMS_ITS | Encounter Summary ---
Author Organization [facility] Address [facility] [place] [address] Care Team Providers Care Senior Sas Developer Name Role Phone Amira Hooks Primary Care Provider Encounter Details Date Type Department Care Team (Late st Contact Info) Description 03/14/2023 10:00 AM EDT Office Visit Psychiatry [place] [address] Joana Mabry, PhD [facility] [place] [address] Post-traumatic stress disorder, unspecified Social History Tobacco [...] EDT INDIVIDUAL THERAPY PROGRESS NOTE CPT CODES 86242, 43410, 75345 LOCATION: Office SESSION DURATION: 36 minutes ATTENDEES: [...] emergencies, call [phone] from anywhere in the [facility]. State specific information for [place] and [place] crisis services are as follows and should be used to access local resources: [facility] Mental Health Crises Services [facility] Crisis Line text or call Visit wwwddmap.com for further information [place] Call your local community crisis line at: [place]: [facility] [phone] [place]: [facility] Services [phone] [place]: [facility] [phone] [place]: [facility] [phone] [place]: [facility] [phone] [place]: [facility] Counseling and Support [phone] [place]: [facility] Mental Health [phone] on weekdays 8AM-4:30PM and [phone] on nights and weekends [place]: Rashida [facility] [place]: [facility] [phone] [place]: [facility] [phone] [place]: [facility] Services, [place]: [facility] [place]: HCRS or Text [place] to 455677 For further information for [place] residents: [email or web address]/emergency-services/tcp-kne-nurr National Suicide Prevention Hotline: For patients cared for in the Department of Psychiatry, you can reach your mental health clinician at [phone]. Joana Mabry, PhD documented in this encounter Plan of Treatment Upcoming Encounters Date Type Department Care Team (Late st Contact Info) Description 06/23/2024 10:00 AM EDT Office Visit Cardiology at [address] [place] [address] Mo Horne MD [facility] [place] [address] 09/21/2024 10:[address] [place] [address] Rachel Carrasco MD [facility] [place] [address] 09/21/2024 11:00 AM EST Office [place] [address] Rachel Carrasco MD [facility] [place] [address] documented as of this encounter Visit Diagnoses Diagnosis Post-traumatic stress disorder, unspecified documented in this encounter Care Teams Senior Sas Developer Relationship Specialty Start Date End Date Amira Hooks PA [address] [place] [address] PCP - General Family Medicine 07/25/22 documented as of this encounter
--- OUTSIDE RECORDS SUMMARY | 2024-06-17 22:18 | XMS_ITS | Encounter Summary ---
Author Organization [facility] Address [facility] [place] [address] Care Team Providers Care Watch And Clock Repairer Name Role Phone Amira Hooks Primary Care [...] AM EDT Office Visit Cardiology at [address] [place] [address] Mo Horne MD [facility] [place] [address] 09/21/2024 10:[address] [place] [address] Rachel Carrasco MD [facility] [place] [address] 09/21/2024 11:00 AM EST Office [place] [address] Rachel Carrasco MD [facility] [place] [address] documented as of this encounter Visit Diagnoses Not on filedocumented in this encounter Care Teams Watch And Clock Repairer Relationship Specialty Start Date End Date Amira Hooks PA [address] [place] [address] PCP - General Family Medicine 07/25/22 documented as of this encounter
--- OUTSIDE RECORDS SUMMARY | 2024-06-17 22:18 | XMS_ITS | Encounter Summary ---
[place] [address] Care Team Providers Care Blood Bank Laboratory Technician Name Role Phone Amira Hooks Primary Care Provider Reason for Referral * Consultation (Routine) - Authorized Specialty Diagnoses / Procedures Referred By Zeyad mishra Referred To Contact Urology Diagnoses Hematuria, unspecified type Amira Hooks PA [address] [place] [address] [facility] [place] [address] Referral ID Status Reason Start Date Expiration Date Visits Requested Visits Authorized [id number] Authorized Consult, Test & Treat PCP Updated and/or Approved 2023 12/16/2024 6 6 Encounter Details Date Type Department Care Team (Latest Contact Info) Description 12/23/2023 Transcribe Orders eDH Incoming Referrals [phone] Amira Hooks PA [address] [place] [phone] Hematuria, unspecified type Social History Tobacco Use [...] AM EDT Office Visit Cardiology at [address] [address] Mo Horne MD [facility] [place] [address] 09/21/2024 10:[address] [place] [place] [address] Rachel Carrasco MD [facility] [place] [address] 09/21/2024 11:00 AM EST [place] [address] Rachel Carrasco MD [facility] [place] [address] Scheduled Referrals Name Type Priority Associated Diagnoses Orde r Schedule Referral to Urology Outpatient Referral Routine Hematuria, unspecified type Ordered: 12/23/2023 documented as of this encounter Visit Diagnoses Diagnosis Hematuria, unspecified type documented in this encounter Care Teams Blood Bank Laboratory Technician Relationship Specialty Start Date End Date Amira Hooks PA [address] [place] [address] PCP - General Family Medicine 07/25/22 documented as of this encounter
--- OUTSIDE RECORDS SUMMARY | 2024-06-17 22:18 | XMS_ITS | Encounter Summary ---
Author Organization [facility] Address [facility] [place] [address] Care Team Providers Care Nozzle Cement Sprayer Helper Name Role Phone Amira Hooks Primary Care Provider [phone] Encounter Details Date Type Department Care Team [...] AM EDT Office Visit Cardiology at [address] [place] [address] Mo Horne MD [facility] [place] [id number] 09/21/2024 10:[address] [place] [place] [address] Rachel Carrasco MD [facility] [place] [address] 09/21/2024 11:00 AM EST [place] [address] Rachel Carrasco MD [facility] [place] [address] documented as of this encounter Visit Diagnoses Not on filedocumented in this encounter Care Teams Nozzle Cement Sprayer Helper Relationship Specialty Start Date End Date Amira Hooks PA [address] [place] [address] PCP - General Family Medicine 07/25/22 documented as of this encounter
--- OUTSIDE RECORDS SUMMARY | 2024-06-17 22:18 | XMS_ITS | Encounter Summary ---
Author Organization [facility] Address [facility] [place] [address] Care Team Providers Care Splicer Helper Name Role Phone Amira Hooks Primary Care Provider Encounter Details Date Type Department Care Team (Late st Contact Info) Description 04/18/2023 Telephone Psychiatry [place] [address] Joana Mabry, PhD [facility] [place] [address] Social History Tobacco Use Types Packs/Day Years Used Date Smoking Tobacco: Former Cigarettes 1.5 15 1 5 - 2009 Smokeless Tobacco: Former Chew Quit: 2013 Alcohol Use Standard Drinks/Week Comments No 0 (1 standard drink = 0.6 oz pur e alcohol) [facility] Inpatient Questions Answer Date Recorded Does Anyone [...] AM EDT Office Visit Cardiology at [address] [place] [address] Mo Horne MD [facility] [place] [address] 09/21/2024 10:[address] [place] [address] Rachel Carrasco MD [facility] [place] [address] 09/21/2024 11:00 AM EST Office [place] [address] Rachel Carrasco MD [facility] [place] [address] documented as of this encounter Visit Diagnoses Not on filedocumented in this encounter Care Teams Splicer Helper Relationship Specialty Start Date End Date Amira Hooks PA [address] [place] [address] PCP - General Family Medicine 07/25/22 documented as of this encounter
--- OUTSIDE RECORDS SUMMARY | 2024-06-17 22:18 | XMS_ITS | Encounter Summary ---
Author Organization Formerly [facility], [facility] [place] [place] [address] Care Team Providers Care Pharmacy Aide Name Role Phone Amira Hooks Primary Care Provider Reason for Referral * Diagnostic Test (Routine) - Closed Specialty Diagnoses / Procedures Referred By Zeyad mishra Referred To Contact Gastroenterology Diagnoses Dyspepsia Abdominal bloating HBT - laculose - bloating Procedures Breath Hydrogen Test Josh Castro MD [facility] [place] [address] [address] Referral ID Status Reason Start Date Expiration Date V isits Requested Visits Authorized [id number] Closed Consult, Test & Treat 11/26/2023 11/25/2024 1 1 Reason for Visit * Consultation (Routine) - Closed Specialty Diagnoses / Procedures Referred By Zeyad mishra Referred To Contact Gastroenterology Diagnoses Constipation, unspecified constipation type Gastroesophageal reflux disease, unspecified whether esophagitis present motility- constipation (former magalys pt ) Amira Hooks PA [address] [place] [address] [facility] [address] [place] [phone] Referral ID Status Reason Start Date Expiration Date V isits Requested Visits Authorized [id number] Closed Consult, Test & Treat PCP Updated and/or Approved 04/20/2023 04/19/2024 6 6 Encounter Details Date Type Department Care Team (Late st Contact Info) Description 11/26/2023 4:00 PM EST Office [place] [address] Josh Castro MD [facility] [place] [address] Dyspepsia; Screening for colon cancer; Abdominal bloating; Gastroesophageal reflux disease, unspecified whether esophagitis present; Small intestinal bacterial overgrowth (SIBO) Social History Tobacco Use Types Packs/Day Years Used Date Smoking Tobacco: Former Cigarettes 1.5 15 1 995 - 2009 Smokeless Tobacco: Former Chew Quit: 2013 Alcohol Use Standard Drinks/Week Comments No 0 (1 standard drink = 0.6 oz pur e alcohol) [facility] Inpatient Questions Answer Date Recorded Does Anyone [...] Castro MD - 11/26/2023 4:00 PM EST [facility] Section of Gastroenterology and Hepatology New Patient Visit PCP: SONNY Gambino Referring provider: SONNY Gambino [address] [place] [address] HPI: This is a 52 y.o. male with hx of Afib s/p ablation on Eliquis, STEMI, s/p CCY, bipolar d/o, PTSD (medical trauma) who is kindly referred by SONNY Gambino [address] [place] [address] for evaluation of abd pain and constipation. 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 smoker Mom with [...] performed by Colt Hewitt MD [facility] MAIN OR PRO UNLISTED LAPAROSCOPIC PX LVR N/A 07/21/2018 LAPAROSCOPIC LIVER BIOPSY (WRVU 16.52) performed by Colt Hewitt MD at [facility] MAIN OR PRO UPPER GI ENDOSCOPY, BIOPSY N/A 12/29/2017 UPPER GASTROINTESTINAL ENDOSCOPY,WITH BIOPSY SINGLE OR MULTIPLE (WRVU 2.49) performed by Yusuf Tucker MD at [facility] ENDOSCOPY PRO UPPER GI ENDOSCOPY, DIAGNOSTIC N/A 12/29/2017 EGD, UPPER GI ENDOSCOPY performed by Yusuf Tucker MD at [facility] ENDOSCOPY TONSILLECTOMY Social History Socioeconomic History [...] Castro MD Section of Gastroenterology and Hepatology [facility] [address] * Josh Castro MD - 11/26/2023 4:00 [...] Breath Testing in Gastrointestinal Disorders: The [place] Consensus (Am J Gastroenterol 2017; 112(5):775-84. Apositive breath test is defined as a rise in hydrogen production >20 ppm compared to baseline within 90 minutes. Methane-positive is defined by at least 10 ppm production of methane. Signed, Davon Lay APRN [place]enter[place] [address] P: [phone] F: [phone] Copy: SONNY Espinoza documented in this encounter Miscellaneous Notes * Addendum Note - Josh Castro MD - 11/26/2023 4:00 PM ESTAddended by: JOSH CASTRO on: 03/26/2024 06:48 AM Modules accepted: Orders documented in this encounter Plan of Treatment Upcoming Encounters Date Type Department Care Team (Late st Contact Info) Description 06/23/2024 10:00 AM EDT Office Visit Cardiology at [address] [address] Mo Horne MD [facility] [place] [address] 09/21/2024 10:[address] [place] [address] Rachel Carrasco MD [facility] [place] [address] 09/21/2024 11:00 AM EST [place] [address] Rachel Carrasco MD [facility] [address] Scheduled Orders Name Type Priority Associated Diagnoses Orde r Schedule Hepatic Function Panel Lab Routine Dyspepsia Expected: 11/26/2023 (Approximate), Expires: 05/27/2024 US Abdomen Limited Hepatology Protocol Imaging Routine Dyspepsia Expected: 11/26/2023, Expires: 05/27/2024 Breath Hydrogen Test GI Routine Dyspepsia Abdominal bloating Expected: 11/26/2023 (Approximate), Expires: 05/27/2024 documented as of this encounter Visit Diagnoses Diagnosis Dyspepsia Dyspepsia and other specified disorders of function of stomach Screening for colon cancer Special screening for malignant neoplasms, colon Abdominal bloating Flatulence, eructation, and gas pain Gastroesophageal reflux disease, unspecified whether esophagitis present Small intestinal bacterial overgrowth (SIBO) documented in this encounter Care Teams Pharmacy Aide Relationship Specialty Start Date End Date Amira Hooks PA [address] [address] PCP - General Family Medicine 07/25/22 documented as of this encounter
--- OUTSIDE RECORDS SUMMARY | 2024-06-17 22:18 | XMS_ITS | Encounter Summary ---
[place] [address] Care Team Providers Care Ramp Service Agent Name Role Phone Amira Hooks Primary Care Provider Encounter Details Date Type Department Care Team (Late st Contact Info) Description 03/05/2024 Telephone [place] [address] Salima Pereira Social History Tobacco Use Types Packs/Day Years Used Date Smoking Tobacco: Former Cigarettes 1.5 15 1 - 2009 Smokeless Tobacco: Former Chew Quit: 2013 Alcohol Use Standard Drinks/Week Comments No 0 (1 standard drink = 0.6 oz pur e alcohol) [facility] Inpatient Questions Answer Date Recorded Does [...] AM EDT Office Visit Cardiology at [address] [place] [address] Mo Horne MD [facility] [place] [address] 09/21/2024 10:[address] [place] [place] [address] Rachel Carrasco MD [facility] [place] [address] 09/21/2024 11:00 AM EST [place] [address] Rachel Carrasco MD [facility] [place] [address] documented as of this encounter Visit Diagnoses Not on filedocumented in this encounter Care Teams Ramp Service Agent Relationship Specialty Start Date End Date Amira Hooks PA [address] [place] [address] PCP - General Family Medicine 07/25/22 documented as of this encounter
--- OUTSIDE RECORDS SUMMARY | 2024-06-17 22:18 | XMS_ITS | Encounter Summary ---
Author Organization [facility] [place] [address] Care Team Providers Care Home Lending Officer Name Role Phone Amira Hooks Primary Care Provider Reason for Visit * Reason Comments Blood In Urine Encounter Details Date Type Department Care Team (Late st Contact Info) Description 01/04/2024 11:02 AM EST - 01/04/2024 2:15 PM EST [place] [address] Hematuria, unspecified type Discharge Disposition: Home Social [...] 03/26/2024 ipratropium (ATROVENT) 21 mcg (0.03 %) [place], Non-Aerosol INSTILL 2 SPRAYS VIA NOSTRILS AT [...] times daily. 120 tablet 3 03/26/2024 03/26/2024 torsemide (Demadex) 20 mg tablet Take 40 mg by mouth daily. 06/07/2024 documented as of this encounter ED Notes [...] to display ED Course as of 01/04/242253 [place] Jan 04, 2024 1228 Blood UA(!): Large [...] AM EDT Office Visit Cardiology at [address] [address] Mo Horne MD [facility] [address] 09/21/2024 10:[address] [place] [place] [address] Rachel Carrasco MD [facility] [place] [address] 09/21/2024 11:00 AM EST [place] [phone] Rachel Carrasco MD [facility] [place] [address] documented as of this encounter Procedures Procedure Name Priority Date/Time Associated Diagnosis Comments HEMOGRAM STAT 01/04/2024 12:38 PM EST DIFFERENTIAL, AUTOMATED STAT 01/04/2024 12:38 PM EST GOLD TUBE HOLD STAT 01/04/2024 12:38 PM EST CBC (WITH DIFF) STAT 01/04/2024 12:38 PM EST BASIC METABOLIC PANEL STAT 01/04/2024 12:38 PM EST URINALYSIS MICROSCOPIC EXAM STAT 01/04/2024 11:28 AM EST URINALYSIS WITH REFLEX CULTURE STAT 01/04/2024 11:28 AM EST documented in this encounter Results * Gold Tube HOLD (01/04/2024 12:38 PM EST) Pathologist [facility] Gold Hold Sample in lab. [facility] Blood Venous Draw / Unknown 01/04/2024 12:38 PM EST 01/04/2024 1:09 PM EST Anthony DENNIS CHEMISTRY ORDERABLES Performing Organization Address City/State/[facility] Co de Phone Number [facility] [place] [address] * (ABNORMAL) Differential, Automated (01/04/2024 12:38 PM EST) Pathologist [facility] Neutrophil % 70.6 % [facility] Neutrophil Absolute 6.06 1.70 - 6.10 x10(3)/mc L [facility] Lymph % 20.0 % [facility] Lymphocytes Abs 1.7 0.9 - 3.2 x10(3)/mc L [facility] Monocyte % 6.8 % [facility] Monocyte Abs 0.6 0.3 - 0.9 x10(3)/mc L [facility] Eos % 1.2 % [facility] Eosinophils Abs 0.1 0.0 - 0.4 x10(3)/mc L [facility] Basophil % 0.6 % [facility] Baso Absolute 0.0 0.0 - 0.1 x10(3)/mc L [facility] Immature Gran % 0.80 % [facility] Comment: Immature granulocytes(IG's)percentage and absolute count will include metamyelocytes, myelocytes, and promyelocytes. Blood smears from CBCs yielding IG's will be scanned manually for concordance. If this scan disagrees with the automated IG or if promyelocytes are noted, a manual differential will be performed. Immature Gran Absolute 0.07(H) 0.00 - 0.04 x10(3)/mc L [facility] Blood 01/04/2024 12:3 8 PM EST 01/04/2024 1:08 PM EST Narrative Resulting Agency Comment Spec In Lab Anthony DENNIS HEMATOLOGY ORDERABLE S [facility] [place] [address] * (ABNORMAL) Hemogram (01/04/2024 12:38 PM EST) White Blood Cell 8.6 4.0 - 9.5 x10(3)/mc L [facility] Red Blood Cell 5.02 4.58 - 5.54 x10(6)/ L [facility] Hemoglobin 14.0 13.7 - 16.5 g/dL [facility] Hematocrit 43.4 40.5 - 48.5 % [facility] Mean Cell Volume 86.5 82.9 - 93.1 fL [facility] Mean Cell Hemoglobin 27.9 27.5 - 32.1 pg [facility] Mean Cell Hemoglobin Concentration 32.3 32.0 - 35.7 g/dL [facility] Platelet 214 145 - 357 x10(3)/mc L [facility] RDW Standard Deviation 44.9 36.0 - 45.0 fL [facility] RDW coefficient of variation 14.3(H) 11.4 - 13.8 % [facility] Mean Platelet Volume 10.5 7.6 - 12.9 fL [facility] NRBC% auto 0.0 % [facility] NRBC Absolute 0.000 0.000 - 0.000 x10(3)/mc L [facility] Blood 01/04/2024 12:3 8 PM EST 01/04/2024 1:08 PM EST Narrative Resulting Agency Comment Spec In Lab Anthony DENNIS HEMATOLOGY ORDERABLE S [facility] [place] [address] * Basic Metabolic Panel (non-fasting) (01/04/2024 12:38 PM EST) Glucose 119 65 - 199 mg/dL [facility] Comment:Diabetes: >=200 mg/d L plus symptoms Blood Urea Nitrogen 10 10 - 20 mg/dL [facility] Creatinine 0.82 0.80 - 1.50 mg/dL [facility] Sodium 142 135 - 145 mmol/L [facility] Potassium 4.4 3.5 - 5.0 mmol/L [facility] Comment: Please note: ??Patients with WBC >100,000 may have falsely elevated Potassium levels. ??For accurate Potassium quantification in these patients send serum separator tube (gold top) for subsequent determinations. ??Contact the Clinical Chemistry Laboratory if there are any questions. Chloride 105 98 - 107 mmol/L [facility] Carbon Dioxide 26 22 - 31 mmol/L [facility] Anion Gap 11 5 - 15 mmol/L [facility] Calcium 9.7 8.5 - 10.5 mg/dL [facility] Est Glomerular Filtration Rate 104 >=60 mL/min/1. 73 m?? [facility] Comment: This patient's estimated GFR [...] Pieter Rios III, MD CHEMISTRY ORDERABL ES Performing Organization Address [facility] Co de Phone Number [facility] [place] [address] * (ABNORMAL) Urinalysis Microscopic Exam (01/04/2024 11:28 AM EST) RBC, Urine 4(H) 0 - 3 /HPF [facility] WBC, Urine <1 0 - 3 /HPF [facility] Bacteria, Urine Rare(A) None /HPF [facility] Squamous Epithelial Cells Raw Data, Urine <1 <=4 /HPF [facility] Clean Catch Urine 01/04/2024 11:28 AM EST 01/04/2024 11:42 AM EST Narrative Resulting Agency Comment Spec In Lab Geno Shipley Denise PRECAST CONCRETE IRONWORKER URINE ORDERABLES Performing Organization Address [facility] de Phone Number [facility] [place] [address] * (ABNORMAL) Urinalysis with reflex Culture (01/04/2024 11:28 AM EST) Glucose, Urine Dipstick Negative Negative mg/dL [facility] Protein, Urine Dipstick Trace(A) Negative mg/dL [facility] Bilirubin, Urine Dipstick Negative Negative mg/dL [facility] Comment: Clinical correlation required for positive Urine Bilirubin results as false positive may occur with some drugs and drug related products. If a false positive is suspected a serum total bilirubin should be considered if clinically indicated. Urobilinogen, Urine Dipstick Normal Normal mg/dL [facility] pH, Urn (dipstick) 7.0 5.0 - 8.0 [facility] Blood, Urine Dipstick Large(A) Negative mg/dL [facility] Ketone, Urine Dipstick Negative Negative mg/dL [facility] Nitrite, Urine Dipstick Negative Negative [facility] Leukocytes, Urine Dipstick Negative Negative [facility] Appearance, Urine Dipstick Clear Clear [facility] Specific [place] Urine Automated 1.004(L) 1.005 - 1.030 [facility] Color, Urine Dipstick Yellow Yellow [facility] Reflex to Culture No [facility] Clean Catch Urine 01/04/2024 11:28 AM EST 01/04/2024 11:42 AM EST Narrative Resulting Agency Comment Spec In Lab Geno C Denise PRECAST CONCRETE IRONWORKER URINE ORDERABLES [facility] [place] [address] documented in this encounter Visit Diagnoses Diagnosis Hematuria, unspecified type documented in this encounter Care Teams Home Lending Officer Relationship Specialty Start Date End Date Amira Hooks PA [address] [place] [address] PCP - General Family Medicine 07/25/22 documented as of this encounter
--- OUTSIDE RECORDS SUMMARY | 2024-06-17 22:18 | XMS_ITS | Encounter Summary ---
Author Organization [facility] Address [facility] [place] [address] Care Team Providers Care Auto Painter Helper Name Role Phone Amira Hooks Primary [...] AM EDT Office Visit Cardiology at [address] [place] [address] Mo Horne MD [facility] [place] [address] 09/21/2024 10:[address] [place] [address] Rachel Carrasco MD [facility] [place] [address] 09/21/2024 11:00 AM EST Office [place] [address] Rachel Carrasco MD [facility] [place] [place] [address] documented as of this encounter Visit Diagnoses Not on filedocumented in this encounter Care Teams Auto Painter Helper Relationship Specialty Start Date End Date Amira Hooks PA [address] [place] [address] PCP - General Family Medicine 07/25/22 documented as of this encounter
--- OUTSIDE RECORDS SUMMARY | 2024-06-17 22:18 | XMS_ITS | Encounter Summary ---
Author Organization [facility] Address [place] [address] Care Team Providers Care Desktop Publishing Specialist Name Role Phone Amira Hooks Primary Care Provider Encounter Details Date Type Department Care Team (Latest Contact Info) Description 03/26/2023 10:00 AM EDT TH Visit (TeleHealth) Psychiatry [place] [address] Joana Mabry, PhD [facility] [place] [address] Post-traumatic stress disorder, unspecified Social History Tobacco [...] EDT INDIVIDUAL THERAPY PROGRESS NOTE CPT CODES 42853, 06284, [address] LOCATION: Office SESSION DURATION: 45 minutes (50 [...] emergencies, call [phone] in the [facility]. State specific information for [place] and [place] crisis services are as follows and should be used to access local resources: [facility] Mental [facility] Crises Services [facility] Crisis Line text or call Visit www.Bandtastic for further information [place] Call your local [facility] crisis line at: [place]: Counseling Service [facility] [phone] [place]: [facility] [phone] [place]: [facility] [phone] [place]: [facility] [phone] [place]: [facility] [phone] Asa israel [place]: [facility] Counseling and Support [phone] [place]: [facility] [phone] on weekdays 8AM-4:30PM and [phone] on nights and weekends [place]: Rashida Hurd [place]: [facility] [phone] [place]: [facility] [place] Services [phone] [place]: [facility] Services, [place]: H[facility] [place]: HCRS or Text [place] to [phone] For further information for [place] residents: [email or web address].[email or web address]/services/emergency-services/fdw-itv-gspc National Suicide Prevention Hotline: For patients cared for in the Department of Psychiatry, you can reach your mental health clinician at [phone]. Joana Mabry, PhD documented in this encounter Plan of Treatment Upcoming Encounters Date Type Department Care Team (Late st Contact Info) Description 06/23/2024 10:00 AM EDT Office Visit Cardiology at [address] [place] [address] Mo Horne MD [facility] [place] [address] 09/21/2024 10:[address] [place] [place] [address] Rachel Carrasco MD [facility] [place] [address] 09/21/2024 11:00 AM EST [place] [address] Rachel Carrasco MD [facility] [place] [address] documented as of this encounter Visit Diagnoses Diagnosis Post-traumatic stress disorder, unspecified documented in this encounter Care Teams Desktop Publishing Specialist Relationship Specialty Start Date End Date Amira Hooks PA [address] [place] [address] PCP - General Family Medicine 07/25/22 documented as of this encounter
--- OUTSIDE RECORDS SUMMARY | 2024-06-17 22:18 | XMS_ITS | Encounter Summary ---
Author Organization [facility] Address [facility] [place] [address] Care Team Providers Care Motor Adjuster Name Role Phone Amira Hooks Primary Care Provider [phone] Encounter Details Date Type Department Care Team (Late Contact Info) Description 03/14/2023 Telephone Psychiatry [place] [address] Joana Mabry, PhD [facility] [place] [address] Social History Tobacco Use Types Packs/Day Years [...] Encounters Date Type Department Care Team (Late Contact Info) Description 06/23/2024 10:00 AM EDT Office Visit Cardiology at [address] [address] Mo Horne MD [facility] [place] [address] 09/21/2024 10:[address] [place] [place] [address] Rachel Carrasco MD [facility] [address] 09/21/2024 11:00 AM EST Office [place] [address] Rachel Carrasco MD [facility] [place] [address] documented as of this encounter Visit Diagnoses Not on filedocumented in this encounter Care Teams Motor Adjuster Relationship Specialty Start Date End Date Amira Hooks PA [address] [place] [address] PCP - General Family Medicine 07/25/22 documented as of this encounter
--- OUTSIDE RECORDS SUMMARY | 2024-06-17 22:18 | XMS_ITS | Encounter Summary ---
Author Organization [facility] Address [facility] [place] [address] Care Team Providers Care Training And Development Head Name Role Phone Amira Hooks Primary Care [...] AM EDT Office Visit Cardiology at [address] [place] [address] Mo Horne MD [facility] [place] [address] 09/21/2024 10:[address] [place] [place] [address] Rachel Carrasco MD [facility] [place] [place] [address] 09/21/2024 11:00 AM EST [place] [address] Rachel Carrasco MD [facility] [place] [address] documented as of this encounter Visit Diagnoses Not on filedocumented in this encounter Care Teams Training And Development Head Relationship Specialty Start Date End Date Amira Hooks PA [address] [place] [address] PCP - General Family Medicine 07/25/22 documented as of this encounter
--- OUTSIDE RECORDS SUMMARY | 2024-06-17 22:18 | XMS_ITS | Encounter Summary ---
Author Organization [facility] [place] [address] Care Team Providers Care Front Office Medical Assistant Name Role Phone Amira Hooks Primary Care Provider Reason for Referral * Diagnostic Test (Routine) - Closed Specialty Diagnoses / Procedures Referred By Contac t Referred To Contact Radiology Diagnoses Nephrolithiasis Procedures CT Urogram Abelino Lazar MD [facility] [place] [address] [facility] [place] [address] Referral ID Status Reason Start Date Expiration Date V isits Requested Visits Authorized [id number] Closed Specialty Service Requested 02/17/2024 08/18/2025 1 1 Reason for Visit * Diagnostic Test (Routine) - Closed Specialty Diagnoses / Procedures Referred By Zeyad t Referred To Contact Radiology Diagnoses Nephrolithiasis Procedures CT Urogram Abelino Lazar MD [facility] [place] [address] [facility] [place] [address] Referral ID Status Reason Start Date Expiration Date V isits Requested Visits Authorized [id number] Closed Specialty Service Requested 02/17/2024 08/18/2025 1 1 Encounter Details Date Type Department Care Team (Latest Contact Info) Description 02/26/2024 3:53 PM EDT - 02/26/2024 11:59 PM EDT Hospital Encounter CT Scan [place] [facility] [place] [address] Rachel Carrasco MD [facility] [place] [address] Nephrolithiasis Discharge Disposition: Home Social History Tobacco [...] 03/26/2024 ipratropium (ATROVENT) 21 mcg (0.03 %) [place], Non-Aerosol INSTILL 2 SPRAYS VIA NOSTRILS AT [...] AM EDT Office Visit Cardiology at [address] [place] [address] Mo Horne MD [facility] [place] [address] 09/21/2024 10:[address] [place] [address] Rachel Carrasco MD [facility] [place] [address] 09/21/2024 11:00 AM EST Office [place] [address] Rachel Carrasco MD [facility] [place] [address] documented as of this encounter Procedures Procedure Name Priority Date/Time Associated Diagnosis Comments CT SCAN UROLOGY Routine 02/26/2024 5:00 PM EDT Nephrolithiasis documented in this encounter Results * CT Urogram (02/26/2024 5:00 PM EDT) Crit[employer] WORKSTATION ID [id number] RAD Anatomical Region Laterality Modality Abdomen, Pelvis [...] who have questions please contact the health career developer that requested your imaging first. ? Electronically signed by: JERRI PORTILLO MD, [facility] ([phone]), at 02/27/2024 3:25 PM Narrative 02/27/2024 3:25 [...] patients who have questions please contactthe health career developer that requested your imaging first. Rachel Carrasco [...] mLs documented in this encounter Care Teams Front Office Medical Assistant Relationship Specialty Start Date End Date Amira Hooks PA [address] [address] PCP - General Family Medicine 07/25/22 documented as of this encounter
--- OUTSIDE RECORDS SUMMARY | 2024-06-17 22:18 | XMS_ITS | Encounter Summary ---
[facility] [place] [address] Care Team Providers Care Nanny Babysitter Name Role Phone Amira Hooks Primary Care Provider Encounter Details Date Type Department Care Team (Late st Contact Info) Description 02/23/2024 Telephone [place] [address] Mahin Helms Social History Tobacco Use Types Packs/Day Years Used Date Smoking Tobacco: Former Cigarettes 1.5 15 1 - 2009 Smokeless Tobacco: Former Chew Quit: 2013 Alcohol Use Standard Drinks/Week Comments No 0 (1 standard drink = 0.6 oz pur e alcohol) [facility] Inpatient Questions Answer Date Recorded [...] - 02/23/2024 8:41 AM EDT Rolo Aguilar [id number] Diagnosis/Indication: heartburn Please review patient chart to [...] NEW referral patient; skip this question if [facility] provider ordered the procedure.) No Is there any other information or concerns you would like to us to share with your care team in relation to your upcoming scheduled procedure? No You must have a responsible alliance party who will drive you to your procedure, stay on campus for the entire duration of your procedure, and drive you home from your procedure. Who will likely be your driver/refuse collector for the procedure? *Please Verify the height [...] AM EDT Office Visit Cardiology at [address] [address] Mo Horne MD [facility] [place] [address] 09/21/2024 10:[address] Scan at [facility] [place] [address] Rachel Carrasco MD [facility] [place] [address] 09/21/2024 11:00 AM EST Office [place] [address] Rachel Carrasco MD [facility] [place] [address] documented as of this encounter Visit Diagnoses Not on filedocumented in this encounter Care Teams Nanny Babysitter Relationship Specialty Start Date End Date Amira Hooks PA [address] [place] [address] PCP - General Family Medicine 07/25/22 documented as of this encounter
--- OUTSIDE RECORDS SUMMARY | 2024-06-17 22:18 | XMS_ITS | Encounter Summary ---
[place] [address] Care Team Providers Care Plasma Specialist Name Role Phone Amira Hooks Primary Care Provider Encounter Details Date Type Department Care Team (Late st Contact Info) Description 12/08/2023 Telephone [place] [address] Violet Perrin Social History Tobacco Use Types Packs/Day Years Used Date Smoking Tobacco: Former Cigarettes 1.5 15 1 - 2009 Smokeless Tobacco: Former Chew Quit: 2013 Alcohol Use Standard Drinks/Week Comments No 0 (1 standard drink = 0.6 oz pur e alcohol) [facility] Inpatient Questions Answer Date Recorded Does [...] - 12/08/2023 8:41 AM EST Rolo Aguilar [id number] Diagnosis/Indication: Endoscopy (worsening GERD and dyspepsia despite [...] procedure? No You must have a responsible libertarian who will drive you to your procedure, stay on campus for the entire duration of your procedure, and drive you home from your procedure. Who will likely be your rail car driver for the procedure? *Please Verify the [...] AM EDT Office Visit Cardiology at [address] [address] Mo Horne MD [facility] [place] [address] 09/21/2024 10:[address] [place] [address] Rachel Carrasco MD [facility] [place] [address] 09/21/2024 11:00 AM EST Office [place] [address] Rachel Carrasco MD [facility] [place] [address] documented as of this encounter Visit Diagnoses Not on filedocumented in this encounter Care Teams Plasma Specialist Relationship Specialty Start Date End Date Amira Hooks PA [address] [place] [address] PCP - General Family Medicine 07/25/22 documented as of this encounter
--- OUTSIDE RECORDS SUMMARY | 2024-06-17 22:18 | XMS_ITS | Encounter Summary ---
Author Organization [facility] Address [facility] [place] [address] Care Team Providers Care Rn Anesthetist Name Role Phone Amira Hooks Primary Care [...] AM EDT Office Visit Cardiology at [address] [place] [address] Mo Horne MD [facility] [place] [address] 09/21/2024 10:[address] [place] [place] [address] Rachel Carrasco MD [facility] [place] [address] 09/21/2024 11:00 AM EST [place] [address] Rachel Carrasco MD [facility] [place] [address] documented as of this encounter Visit Diagnoses Not on filedocumented in this encounter Care Teams Rn Anesthetist Relationship Specialty Start Date End Date Amira Hooks PA [address] [place] [address] PCP - General Family Medicine 07/25/22 documented as of this encounter
--- OUTSIDE RECORDS SUMMARY | 2024-06-17 22:18 | XMS_ITS | Encounter Summary ---
Author Organization [facility] Address [facility] [place] [address] Care Team Providers Care Whiskey Proof Reader Name Role Phone Amira Hooks Primary Care [...] AM EDT Office Visit Cardiology at [address] [place] [address] Mo Horne MD [facility] [place] [address] 09/21/2024 10:[address] [place] [address] Rachel Carrasco MD [facility] [place] [address] 09/21/2024 11:00 AM EST Office [place] [address] Rachel Carrasco MD [facility] [place] [address] documented as of this encounter Visit Diagnoses Not on filedocumented in this encounter Care Teams Whiskey Proof Reader Relationship Specialty Start Date End Date Amira Hooks PA [address] [place] [address] PCP - General Family Medicine 07/25/22 documented as of this encounter
--- OUTSIDE RECORDS SUMMARY | 2024-06-17 22:18 | XMS_ITS | Encounter Summary ---
[place] [address] Care Team Providers Care Supervisor Of Research Name Role Phone Amira Hooks Primary Care Provider [phone] Encounter Details Date Type Department Care Team (Late st Contact Info) Description 03/01/2024 [place] [address] Joss Johnson, RN Social History Tobacco Use Types Packs/Day Years Used Date Smoking Tobacco: Former Cigarettes 1.5 15 1 - 2009 Smokeless Tobacco: Former Chew Quit: 2013 Alcohol Use Standard Drinks/Week Comments No 0 (1 standard drink = 0.6 oz pur e alcohol) [facility] Inpatient Questions Answer Date Recorded [...] 03/01/2024 10:46 AM EDT Copied from CRM #[id number]. Topic: Specialty Dept CRMs - Generic Call [...] AM EDT Office Visit Cardiology at [address] [place] [address] Mo Horne MD [facility] [place] [address] 09/21/2024 10:[address] [place] [address] Rachel Carrasco MD [facility] [place] [address] 09/21/2024 11:00 AM EST [place] [address] Rachel Carrasco MD [facility] [place] [address] documented as of this encounter Visit Diagnoses Not on filedocumented in this encounter Care Teams Supervisor Of Research Relationship Specialty Start Date End Date Amira Hooks PA [address] [place] [address] PCP - General Family Medicine 07/25/22 documented as of this encounter
--- OUTSIDE RECORDS SUMMARY | 2024-06-17 22:18 | XMS_ITS | Encounter Summary ---
Author Organization [facility] Address [facility] [place] [address] Care Team Providers Care Online Merchandising Specialist Name Role Phone Amira Hooks Primary Care Provider [phone] Encounter Details Date Type Department Care Team (Late st Contact Info) Description 04/09/2023 10:00 AM EDT Office Visit Psychiatry [place] [address] Joana Mabry, PhD [facility] [place] [address] Post-traumatic stress disorder, unspecified Social History Tobacco [...] EDT INDIVIDUAL THERAPY PROGRESS NOTE CPT CODES 88061, 71013, 78932 LOCATION: Office SESSION DURATION: 45 minutes ATTENDEES: [...] emergencies, call 988 from anywhere in the [facility]. State specific information for [place] and [place] crisis services are as follows and should be used to access local resources: [facility] Mental Health Crises Services [facility] Crisis Line text or call Visit www.[employer] for further information [place] Call your local [facility] crisis line at: [place]: Counseling Service [facility] [phone] [place]: [facility] [phone] [place]: [facility] [phone] [place]: [facility] [phone] [place]: [facility] [phone] [place] israel [place]: [facility] Counseling and Support [phone] [place]: [facility] Mental Health [phone] on weekdays 8AM-4:30PM and [phone] on nights and weekends [place]: [facility] [place]: [facility] [phone] [place]: [facility] [phone] [place]: [facility] Services, [place]: HCRS [place]: HCRS or Text [place] to [phone] For further information for [place] residents: https://mentalhealth.[place].[facility]/services/emergency-services/zpt-rlc-xvwx National Suicide Prevention Hotline: For patients cared for in the Department of Psychiatry, you can reach your mental health clinician at [phone]. Joana Mabry, PhD documented in this encounter Plan of Treatment Upcoming Encounters Date Type Department Care Team (Late st Contact Info) Description 06/23/2024 10:00 AM EDT Office Visit Cardiology at [address] [address] Mo Horne MD [facility] [place] [address] 09/21/2024 10:[address] [place] [place] [address] Rachel Carrasco MD [facility] [place] [address] 09/21/2024 11:00 AM EST Office [place] [address] Rachel Carrasco MD [facility] [place] [address] documented as of this encounter Visit Diagnoses Diagnosis Post-traumatic stress disorder, unspecified documented in this encounter Care Teams Online Merchandising Specialist Relationship Specialty Start Date End Date Amira Hooks PA [address] [place] [address] PCP - General Family Medicine 07/25/22 documented as of this encounter
--- OUTSIDE RECORDS SUMMARY | 2024-06-17 22:18 | XMS_ITS | Encounter Summary ---
Author Organization [facility] Address [facility] [place] [address] Care Team Providers Care Dining Manager Name Role Phone Amira Hooks Primary Care Provider [phone] Reason for Visit * Reason Comments Atrial Fibrillation S/P Ablation Encounter Details Date Type Department Care Team (Late st Contact Info) Description 06/18/2023 1:40 PM EDT Office Visit Cardiology at [address] [address] Mo Horne MD [facility] [place] [address] S/P ablation of atrial fibrillation Social History [...] Follow Up Patient ID Rolo Aguilar [id number] Rolo Aguilar is following up in EP [...] tachycardia) Added automatically from request for surgery [id number] PAF (paroxysmal atrial fibrillation) Added automatically from request for surgery [id number] Flutter-fibrillation H/O cardiac radiofrequency ablation Coronary disease 2017: STEMI. PCI of OM1. EF 60%. Many ER visits to [facility] after this. Heart palpitations Obesity Essential hypertension [...] is alert. ECG: sinus rhythm 68 bpm, LA 180ms, QRS 100ms, QT 400ms Praful Aguilar [...] 12 months MO HORNE MD Cardiac Electrophysiology [facility] [employer] 20 minutes of this minute encounter were [...] AM EDT Office Visit Cardiology at [address] [address] Mo Horne MD [facility] [place] [address] 09/21/2024 10:[address] [place] [place] [address] Rachel Carrasco MD [facility] [place] [address] 09/21/2024 11:00 AM EST [place] [address] Rachel Carrasco MD [facility] [place] [address] documented as of this encounter Visit Diagnoses Diagnosis S/P ablation of atrial fibrillation Other postprocedural status documented in this encounter Care Teams Dining Manager Relationship Specialty Start Date End Date Amira Hooks PA [address] [place] [address] PCP - General Family Medicine 07/25/22 documented as of this encounter
--- OUTSIDE RECORDS SUMMARY | 2024-06-17 22:18 | XMS_ITS | Encounter Summary ---
Author Organization [facility] Address [facility] [place] [address] Care Team Providers Care Cattle Trader Name Role Phone Amira Hooks Primary Care Provider [phone] Encounter Details Date Type Department Care Team (Late st Contact Info) Description 01/16/2024 12:02 PM EST Anesthesia [place] [address] Jesse Ellis MD [facility] [place] [address] Willie Gonzalez CRNA [facility] [place] [address] Anesthesia Record Procedure Summary Procedure Name Responsible [...] 06/11/24 1 753 by Aileen Thapa RN documented in this [...] Colt Hewitt MD [facility] MAIN OR ??? PRO UNLISTED LAPAROSCOPIC PX LVR N/A 07/21/2018 LAPAROSCOPIC LIVER BIOPSY (WRVU 16.52) performed by Colt Hewitt MD at [facility] MAIN OR ??? PRO UPPER GI ENDOSCOPY, BIOPSY N/A 12/29/2017 UPPER GASTROINTESTINAL ENDOSCOPY,WITH BIOPSY SINGLE OR MULTIPLE (WRVU 2.49) performed by Yusuf Tucker MD at [facility] ENDOSCOPY ??? PRO UPPER GI ENDOSCOPY, DIAGNOSTIC N/A 12/29/2017 EGD, UPPER GI ENDOSCOPY performed by Yusuf Tucker MD at [facility] ENDOSCOPY ??? TONSILLECTOMY Social History Tobacco [...] risks discussed with patient. Plan discussed with CAR FERRY MASTER and attending. Anesthesia Screening documented in this encounter Plan of Treatment Upcoming Encounters Date Type Department Care Team (Late st Contact Info) Description 06/23/2024 10:00 AM EDT Office Visit Cardiology at [address] [address] Mo Horne MD [facility] [place] [address] 09/21/2024 10:[address] [place] [place] [address] Rachel Carrasco MD [facility] [place] [address] 09/21/2024 11:00 AM EST [place] [address] Rachel Carrasco MD [facility] [place] [address] documented as of this encounter Visit Diagnoses Not on filedocumented in this encounter Care Teams Cattle Trader Relationship Specialty Start Date End Date Amira Hooks PA [address] [place] [address] PCP - General Family Medicine 07/25/22 documented as of this encounter
--- OUTSIDE RECORDS SUMMARY | 2024-06-17 22:18 | XMS_ITS | Encounter Summary ---
Author Organization [facility] Address [facility] [place] [address] Care Team Providers Care Electronics Teacher Name Role Phone Amira Hooks Primary Care Provider Encounter Details Date Type Department Care Team (Late st Contact Info) Description 02/18/2024 Orders [place] [address] Rachel Carrasco MD [facility] [place] [address] Hematuria, unspecified type Social History Tobacco Use [...] AM EDT Office Visit Cardiology at [address] [place] [address] Mo Horne MD [facility] [place] [address] 09/21/2024 10:[address] [place] [address] Rachel Carrasco MD [facility] [place] [address] 09/21/2024 11:00 AM EST Office [place] [address] Rachel Carrasco MD [facility] [place] [address] documented as of this encounter Results * Creatinine (04/09/2024 11:01 AM EDT) Creatinine 0.88 0.80 - 1.50 mg/dL [facility] Est Glomerular Filtration Rate 102 >=60 mL/min/1. 73 m?? [facility] Comment: This patient's estimated GFR [...] In Lab Rachel Carrasco MD CHEMISTRY ORDERABLES [facility] [place] [address] documented in this encounter Visit Diagnoses Diagnosis Hematuria, unspecified type documented in this encounter Care Teams Electronics Teacher Relationship Specialty Start Date End Date Amira Hooks PA [address] [place] [address] PCP - General Family Medicine 07/25/22 documented as of this encounter
--- OUTSIDE RECORDS SUMMARY | 2024-06-17 22:18 | XMS_ITS | Encounter Summary ---
[place] [address] Care Team Providers Care Vocational School Teacher Name Role Phone Amira Hooks Primary Care Provider [phone] Reason for Visit * Diagnostic Test (Routine) - Closed Specialty Diagnoses / Procedures Referred By Zeyad mishra Referred To Contact Gastroenterology Diagnoses Dyspepsia Abdominal bloating HBT - laculose - bloating Procedures Breath Hydrogen Test Joan Castro MD [facility] [place] [address] [facility] Gastro [address] [place] [address] Referral ID Status Reason Start Date Expiration Date V isits Requested Visits Authorized [id number] Closed Consult, Test & Treat 11/26/2023 11/25/2024 1 1 Encounter Details Date Type Department Care Team (Latest Contact Info) Description 02/14/2024 10:00 AM EDT Procedure [place] [address] Dyspepsia; Abdominal bloating Social History Tobacco Use Types Packs/Day Years Used Date Smoking Tobacco: Former Cigarettes 1.5 15 1 - 2009 Smokeless Tobacco: Former Chew Quit: 2013 Alcohol Use Standard Drinks/Week Comments No 0 (1 standard drink = 0.6 oz pur e alcohol) [facility] Inpatient Questions Answer Date Recorded Does Anyone [...] Breath Testing in Gastrointestinal Disorders: The [place] Consensus (Am J Gastroenterol 2017; 112(5):775-84. Apositive breath test is defined as a rise in hydrogen production >20 ppm compared to baseline within 90 minutes. Methane-positive is defined by at least 10 ppm production of methane. SignedDavon APRN Gastroenterology [place] [address] P: [phone] F: [phone] Copy: SONNY Espinoza documented in this encounter Plan of Treatment Upcoming Encounters Date Type Department Care Team (Late st Contact Info) Description 06/23/2024 10:00 AM EDT Office Visit Cardiology at [address] [place] [address] Mo Horne MD [facility] [place] [address] 09/21/2024 10:[address] [place] [place] [address] Rachel Carrasco MD [facility] [place] [address] 09/21/2024 11:00 AM EST [place] [address] Rachel Carrasco MD [facility] [place] [address] documented as of this encounter Visit Diagnoses Diagnosis Dyspepsia Dyspepsia and other specified disorders of function of stomach Abdominal bloating Flatulence, eructation, and gas pain documented in this encounter Care Teams Vocational School Teacher Relationship Specialty Start Date End Date Amira Hooks PA [address] [address] PCP - General Family Medicine 07/25/22 documented as of this encounter
--- OUTSIDE RECORDS SUMMARY | 2024-06-17 22:18 | XMS_ITS | Encounter Summary ---
Author Organization Replaced By [facility] Address [facility] [place] [address] Care Team Providers Care Import And Export Clerk Name Role Phone Amira Hooks Primary Care Provider Encounter Details Date Type Department Care Team (Latest Contact Info) Description 01/16/2024 8:49 AM EST - 01/16/2024 9:57 PM EST Hospital En[place] [address] Joan Castro MD [facility] [place] [address] Discharge Disposition: Home Social History Tobacco Use [...] 03/26/2024 ipratropium (ATROVENT) 21 mcg (0.03 %) [place], Non-Aerosol INSTILL 2 SPRAYS VIA NOSTRILS AT [...] AM EDT Office Visit Cardiology at [address] [phone] Mo Horne MD [facility] [place] [address] 09/21/2024 10:[address] [place] [place] [address] Rachel Carrasco MD [facility] [place] [address] 09/21/2024 11:00 AM EST [place] [address] Rachel Carrasco MD [facility] [place] [address] documented as of this encounter Procedures Procedure Name Priority Date/Time Associated Diagnosis Comments Colonoscopy, Diagnostic (84919) Dyspepsia Screening for colon cancer Upper GI Endoscopy, Diagnostic (05139) Dyspepsia Screening for colon cancer documented in this encounter Visit Diagnoses Not on filedocumented in this encounter Care Teams Import And Export Clerk Relationship Specialty Start Date End Date Amira Hooks PA [address] [place] [address] PCP - General Family Medicine 07/25/22 documented as of this encounter
--- OUTSIDE RECORDS SUMMARY | 2024-06-17 22:18 | XMS_ITS | Encounter Summary ---
[place] [address] Care Team Providers Care Cultural Historian Name Role Phone Amira Hooks Primary Care Provider Reason for Referral * Diagnostic Test (Routine) - Closed Specialty Diagnoses / Procedures Referred By Contac t Referred To Contact Radiology Diagnoses Hematuria, unspecified type Procedures CT Abdomen & Pelvis wo Contrast Amira Hooks PA [address] [place] [address] [facility] [place] [address] Referral ID Status Reason Start Date Expiration Date V isits Requested Visits Authorized [id number] Closed Specialty Service Requested 12/22/2023 06/21/2025 1 1 Reason for Visit * Diagnostic Test (Routine) - Closed Specialty Diagnoses / Procedures Referred By Contac t Referred To Contact Radiology Diagnoses Hematuria, unspecified type Procedures CT Abdomen & Pelvis wo Contrast Amira Hooks PA [address] [place] [address], [place] [address] [facility] [place] [address] Referral ID Status Reason Start Date Expiration Date V isits Requested Visits Authorized [id number] Closed Specialty Service Requested 12/22/2023 06/21/2025 1 1 Encounter Details Date Type Department Care Team (Latest Contact Info) Description 12/24/2023 2:20 PM EST - 12/24/2023 11:59 PM EST Hospital Encounter CT Scan at [facility] [place] [address] Amira Hooks PA [address] [place] [address] Hematuria, unspecified type Discharge Disposition: Home Social History Tobacco Use Types Packs/Day Years Used Date Smoking Tobacco: Former Cigarettes 1.5 15 1 - 2009 Smokeless Tobacco: Former Chew Quit: 2013 Alcohol Use Standard Drinks/Week Comments No 0 (1 standard drink = 0.6 oz pur e alcohol) [facility] Inpatient Questions Answer Date Recorded [...] 03/26/2024 ipratropium (ATROVENT) 21 mcg (0.03 %) [place], Non-Aerosol INSTILL 2 SPRAYS VIA NOSTRILS AT [...] AM EDT Office Visit Cardiology at [address] [place] [address] Mo Horne MD [facility] [place] [address] 09/21/2024 10:[address] [place] [place] [phone] Rachel Carrasco MD [facility] [place] [address] 09/21/2024 11:00 AM EST [place] [phone] Rachel Carrasco MD [facility] [place] [address] documented as of this encounter Procedures Procedure [...] who have questions please contact the health customer care consultant that requested your imaging first. ? Electronically signed by: Erich Ordonez MD, [facility] ??([phone]), at 12/24/2023 4:31 PM Narrative 12/24/2023 4:31 PM EST EXAMINATION: CT [...] further reduced by body habitus and decreased nskbzd-zz-bvrqh ratio. Lower chest: Trace bilateral pleural effusions. [...] inflammation. Abdominal wall: Partially excluded from the qxzrl-jk-yyiw due to body habitus. No appreciable abdominal [...] further reduced by body habitus and decreased sxeklu-ot-batbw ratio. Lower chest: Trace bilateral pleural effusions. [...] inflammation. Abdominal wall: Partially excluded from the dqexg-oe-iojv due to bodyhabitus. No appreciable abdominal wall [...] patients who have questions please contactthe health customer care consultant that requested your imaging first. Electronically signed by: Erich Ordonez MD, [facility]([phone]), at 12/24/2023 4:31 PM [address] ORDERABLES documented in this encounter Visit Diagnoses Diagnosis Hematuria, unspecified type documented in this encounter Care Teams Cultural Historian Relationship Specialty Start Date End Date Amira Hooks PA [address] [place] [address] PCP - General Family Medicine 07/25/22 documented as of this encounter
--- OUTSIDE RECORDS SUMMARY | 2024-06-17 22:18 | XMS_ITS | Encounter Summary ---
[place] [address] Care Team Providers Care Alto Singer Name Role Phone Amira Hooks Primary Care Provider Reason for Referral * Diagnostic Test (Routine) - Closed Specialty Diagnoses / Procedures Referred By Contac t Referred To Contact Radiology Diagnoses Nephrolithiasis Procedures CT Urogram Abelino Lazar MD [facility] [place] [address] [facility] [place] [address] Referral ID Status Reason Start Date Expiration Date V isits Requested Visits Authorized [id number] Closed Specialty Service Requested 02/17/2024 08/18/2025 1 1 Reason for Visit * Consultation (Routine) - Authorized Specialty Diagnoses / Procedures Referred By Contac t Referred To Contact Urology Diagnoses Hematuria, unspecified type Amira Hooks PA [address] [place] [address] [facility] [place] [address] Referral ID Status Reason Start Date Expiration Date Visits Requested Visits Authorized [id number] Authorized Consult, Test & Treat PCP Updated and/or Approved 2023 12/16/2024 6 6 Encounter Details Date Type Department Care Team (Late st Contact Info) Description 02/17/2024 3:20 PM EDT Office Visit Urology at [facility] [place] [address] Rachel Carrasco MD [facility] [place] [address] Nephrolithiasis; Hematuria, unspecified type Social History Tobacco Use Types Packs/Day Years Used Date Smoking Tobacco: Former Cigarettes 1.5 15 1 995 - 2009 Smokeless Tobacco: Former Chew Quit: 2013 Alcohol Use Standard Drinks/Week Comments No 0 (1 standard drink = 0.6 oz pur e alcohol) [facility] Inpatient Questions Answer Date Recorded [...] AM EDT Office Visit Cardiology at [address] [place] [address] Mo Horne MD [facility] [place] [address] 09/21/2024 10:[address] [place] [place] [address] Rachel Carrasco MD [facility] [place] [address] 09/21/2024 11:00 AM EST [place] [address] Rachel Carrasco MD [facility] [place] [address] Scheduled Orders Name Type Priority Associated Diagnoses Orde r Schedule Urine culture Clean Catch Urine Microbiology Routine Hematuria, unspecified type Expected: 02/17/2024, Expires: 02/16/2025 documented as of this encounter Procedures Procedure Name Priority Date/Time Associated Diagnosis Comments URINE CULTURE Routine 02/17/2024 5:00 PM EDT documented in this encounter Results * CT Urogram (02/26/2024 5:00 PM EDT) [id number] WORKSTATION ID [id number] [facility] Anatomical Region Laterality Modality Abdomen, Pelvis Computed [...] who have questions please contact the health out of school hours care worker that requested your imaging first. ? Narrative [...] patients who have questions please contactthe health out of school hours care worker that requested your imaging first. Rachel Carrasco MD [facility] CT ORDERABLES * (ABNORMAL) Urine culture (02/17/2024 5:00 PM EDT) Urine Culture 10,000-49,000 cfu/ml mixed mucosal debbie Note: Culture shows multiple bacterial species suggesting mucosal contamination. (A) [facility] Clean Catch Urine 02/17/2024 5:00 PM EDT 02/17/2024 6:39 PM EDT Narrative Resulting Agency Comment Spec In Lab Rachel Carrasco MD MICROBIOLOGY - [facility] AL ORDERABLES [facility] [place] [address] documented in this encounter Visit Diagnoses Diagnosis Nephrolithiasis Calculus of kidney Hematuria, unspecified type Nephrolithiasis Calculus of kidney documented in this encounter Care Teams Alto Singer Relationship Specialty Start Date End Date Amira Hooks PA [address] [place] [address] PCP - General Family Medicine 07/25/22 documented as of this encounter
--- OUTSIDE RECORDS SUMMARY | 2024-06-17 22:18 | XMS_ITS | Encounter Summary ---
Author Organization [facility] Address [facility] [place] [address] Care Team Providers Care Garnett Room Worker Name Role Phone Amira Hooks Primary [...] AM EDT Office Visit Cardiology at [address] [place] [address] Mo Horne MD [facility] [address] 09/21/2024 10:[address] [place] [address] Rachel Carrasco MD [facility] [place] [address] 09/21/2024 11:00 AM EST Office [place] [address] Rachel Carrasco MD [facility] [place] [address] documented as of this encounter Visit Diagnoses Not on filedocumented in this encounter Care Teams Garnett Room Worker Relationship Specialty Start Date End Date Amira Hooks PA [address] [place] [address] PCP - General Family Medicine 07/25/22 documented as of this encounter
--- OUTSIDE RECORDS SUMMARY | 2024-06-17 22:18 | XMS_ITS | Encounter Summary ---
Author Organization [facility] [place] [address] Care Team Providers Care Lap Cutter Truer Operator Name Role Phone Amira Hooks Primary [...] AM EDT Office Visit Cardiology at [address] [address] Mo Horne MD [facility] [place] [address] 09/21/2024 10:[address] [place] [place] [address] Rachel Carrasco MD [facility] [place] [address] 09/21/2024 11:00 AM EST [place] [address] Rachel Carrasco MD [facility] [place] [address] documented as of this encounter Visit Diagnoses Not on filedocumented in this encounter Care Teams Lap Cutter Truer Operator Relationship Specialty Start Date End Date Amira Hooks PA [address] [place] [address] PCP - General Family Medicine 07/25/22 documented as of this encounter
--- OUTSIDE RECORDS SUMMARY | 2024-06-17 22:18 | XMS_ITS | Encounter Summary ---
Author Organization [facility] Address [facility] [place] [address] Care Team Providers Care Pepper Cutter Name Role Phone Amira Hooks Primary [...] AM EDT Office Visit Cardiology at [address] [place] [address] Mo Horne MD [facility] [place] [address] 09/21/2024 10:[address] [place] [place] [address] Rachel Carrasco MD [facility] [place] [address] 09/21/2024 11:00 AM EST [place] [address] Rachel Carrasco MD [facility] [place] [address] documented as of this encounter Visit Diagnoses Not on filedocumented in this encounter Care Teams Pepper Cutter Relationship Specialty Start Date End Date Amira Hooks PA [address] [place] [address] PCP - General Family Medicine 07/25/22 documented as of this encounter
--- OUTSIDE RECORDS SUMMARY | 2024-06-17 22:18 | XMS_ITS | Encounter Summary ---
Author Organization [facility] Address [facility] [place] [address] Care Team Providers Care Lath Tier Name Role Phone Amira Hooks Primary Care [...] AM EDT Office Visit Cardiology at [address] [place] [address] Mo Horne MD [facility] [place] [address] 09/21/2024 10:[address] [place] [address] Rachel Carrasco MD [facility] [place] [address] 09/21/2024 11:00 AM EST Office [place] [address] Rachel Carrasco MD [facility] [place] [address] documented as of this encounter Visit Diagnoses Not on filedocumented in this encounter Care Teams Lath Tier Relationship Specialty Start Date End Date Amira Hooks PA [address] [place] [address] PCP - General Family Medicine 07/25/22 documented as of this encounter
--- OUTSIDE RECORDS SUMMARY | 2024-06-17 22:18 | XMS_ITS | Encounter Summary ---
Author Organization [facility] Address [facility] [place] [address] Care Team Providers Care Echo Vascular Tech Name Role Phone Amira Hooks Primary Care Provider [phone] Encounter Details Date Type Department Care Team [...] AM EDT Office Visit Cardiology at [address] [place] [address] Mo Horne MD [facility] [place] [address] 09/21/2024 10:[address] [place] [address] Rachel Carrasco MD [facility] [place] [address] 09/21/2024 11:00 AM EST Office Visit [place] [address] Rachel Carrasco MD [facility] [place] [address] documented as of this encounter Visit Diagnoses Not on filedocumented in this encounter Care Teams Echo Vascular Tech Relationship Specialty Start Date End Date Amira Hooks PA [address] [place] [address] PCP - General Family Medicine 07/25/22 documented as of this encounter
--- OUTSIDE RECORDS SUMMARY | 2024-06-17 22:18 | XMS_ITS | Encounter Summary ---
[place] [address] Care Team Providers Care Director Of Rehabilitation And Wellness Name Role Phone Amira Hooks Primary Care Provider Reason for Referral * Consultation (Routine) - Closed Specialty Diagnoses / Procedures Referred By Zeyad t Referred To Contact Gastroenterology Diagnoses Constipation, unspecified constipation type Gastroesophageal reflux disease, unspecified whether esophagitis present motility- constipation (former magalys pt ) Amira Hooks PA [address] [place] [address] [facility] [place] [address] Referral ID Status Reason Start Date Expiration Date V isits Requested Visits Authorized [id number] Closed Consult, Test & Treat PCP Updated and/or Approved 04/20/2023 04/19/2024 6 6 Encounter Details Date Type Department Care Team (Latest Contact Info) Description 04/20/2023 Transcribe Orders eDH Incoming Referrals [phone] Amira Hooks PA [address] [place] [address] Constipation, unspecified constipation type; Gastroesophageal reflux disease, unspecified whether esophagitis present Social History Tobacco Use Types Packs/Day Years Used Date Smoking Tobacco: Former Cigarettes 1.5 15 1 995 - 2009 Smokeless Tobacco: Former Chew Quit: 2013 Alcohol Use Standard Drinks/Week Comments No 0 (1 standard drink = 0.6 oz pur e alcohol) COUNT INCLUDES [facility] Inpatient Questions Answer Date Recorded Does [...] AM EDT Office Visit Cardiology at [address] [address] Mo Horne MD [facility] [place] [address] 09/21/2024 10:[address] Scan at [place] [phone] Rachel Carrasco MD [facility] [place] [address] 09/21/2024 11:00 AM EST Office Visit Urology at [place] [phone] Rachel Carrasco MD [facility] [place] [address] Scheduled Referrals Name Type Priority Associated Diagnoses Order Schedule Referral to Gastroenterology Outpatient Referral Routine Constipation, unspecified constipation type Gastroesophageal reflux disease, unspecified whether esophagitis present Ordered: 04/20/2023 documented as of this encounter Visit Diagnoses Diagnosis Constipation, unspecified constipation type Gastroesophageal reflux disease, unspecified whether esophagitis present documented in this encounter Care Teams Director Of Rehabilitation And Wellness Relationship Specialty Start Date End Date Amira Hooks PA [address] [place] [address] PCP - General Family Medicine 07/25/22 documented as of this encounter
--- OUTSIDE RECORDS SUMMARY | 2024-06-17 22:18 | XMS_ITS | Encounter Summary ---
Author Organization [facility] [place] [address] Care Team Providers Care Architect Internship Name Role Phone Amira Hooks Primary Care Provider Encounter Details Date Type Department Care Team (Late st Contact Info) Description 03/01/2024 [place] [phone] Rachel Carrasco MD [facility] [place] [address] Social History Tobacco Use Types Packs/Day Years [...] AM EDT Office Visit Cardiology at [address] [address] Mo Horne MD [facility] [place] [address] 09/21/2024 10:[address] [place] [place] [address] Rachel Carrasco MD [facility] [place] [place] [address] 09/21/2024 11:00 AM EST [place] [address] Rachel Carrasco MD [facility] [place] [address] documented as of this encounter Visit Diagnoses Not on filedocumented in this encounter Care Teams Architect Internship Relationship Specialty Start Date End Date Amira Hooks PA [address] [place] [address] PCP - General Family Medicine 07/25/22 documented as of this encounter
--- OUTSIDE RECORDS SUMMARY | 2024-06-17 22:18 | XMS_ITS | Encounter Summary ---
Author Organization [facility] Address [facility] [place] [address] Care Team Providers Care Health Information Technician Name Role Phone Amira Hooks Primary Care Provider [phone] Encounter Details Date Type Department Care Team [...] AM EDT Office Visit Cardiology at [address] [place] [address] Mo Horne MD [facility] [place] [address] 09/21/2024 10:[address] [place] [address] Rachel Carrasco MD [facility] [place] [address] 09/21/2024 11:00 AM EST Office [place] [address] Rachle Carrasco MD [facility] [place] [address] documented as of this encounter Visit Diagnoses Not on filedocumented in this encounter Care Teams Health Information Technician Relationship Specialty Start Date End Date Amira Hooks PA [address] [place] [address] PCP - General Family Medicine 07/25/22 documented as of this encounter
--- OUTSIDE RECORDS SUMMARY | 2024-06-17 22:18 | XMS_ITS | Encounter Summary ---
Author Organization Formerly [facility] [place] [address] Care Team Providers Care Gps Field Data Collector Name Role Phone Amira Hooks Primary Care Provider Reason for Visit * Reason Comments Atrial Fibrillation Encounter Details Date Type Department Care Team (Late st Contact Info) Description 04/06/2023 10:19 PM EDT - 04/07/2023 12:25 AM [place] [address] Darnell Ferguson MD [facility] [place] [address] Racing heart beat Discharge Disposition: Home Social [...] PM EDT You were seen in the [facility] emergency department. Your work-up here was reassuring. [...] half since his ablation. He called his Finisher Hot Strip, and it was recommended he take an [...] of 04/07/23 0353 Sun April 06, 2023 3387 Patient decline IV fluids and Mg repletion [...] AM EDT Office Visit Cardiology at [address] [place] [address] Mo Horne MD [facility] [place] [address] 09/21/2024 10:[address] [place] [phone] Rachel Carrasco MD [facility] [place] [address] 09/21/2024 11:00 AM EST Office [place] [phone] Rachel Carrasco MD [facility] [place] [address] documented as of this encounter Procedures Procedure Name Priority Date/Time Associated Diagnosis Comments TSH CASCADE STAT 04/06/2023 10:30 PM EDT HEMOGRAM STAT 04/06/2023 10:30 PM EDT DIFFERENTIAL, AUTOMATED STAT 04/06/2023 10:30 PM EDT BLUE TUBE HOLD STAT 04/06/2023 10:30 PM EDT CBC (WITH DIFF) STAT 04/06/2023 10:30 PM EDT MAGNESIUM STAT 04/06/2023 10:30 PM EDT BASIC METABOLIC PANEL STAT 04/06/2023 10:30 PM EDT EKG 12-LEAD STAT 04/06/2023 10:24 PM EDT documented in this encounter Results * Blue Tube HOLD (04/06/2023 10:30 PM EDT) Blue Hold Sample in lab. [facility] Blood Venous Draw / Unknown 04/06/2023 10:30 PM EDT 04/06/2023 10:47 PM EDT Faina Grijalva MD HEMATOLOGY ORDERAB LES [facility] [place] [address] * (ABNORMAL) Differential, Automated (04/06/2023 10:30 PM EDT) [facility] Neutrophil % 71.5 % [facility] Neutrophil Absolute 6.97(H) 1.70 - 6.10 x10(3)/mc L [facility] Lymph % 19.3 % [facility] Lymphocytes Abs 1.9 0.9 - 3.2 x10(3)/mc L [facility] Monocyte % 7.4 % [facility] Monocyte Abs 0.7 0.3 - 0.9 x10(3)/mc L [facility] Eos % 0.9 % [facility] Eosinophils Abs 0.1 0.0 - 0.4 x10(3)/mc L [facility] Basophil % 0.5 % [facility] Baso Absolute 0.0 0.0 - 0.1 x10(3)/mc L [facility] Immature Gran % 0.40 % [facility] Comment: Immature granulocytes(IG's)percentage and absolute count will include metamyelocytes, myelocytes, and promyelocytes. Blood smears from CBCs yielding IG's will be scanned manually for concordance. If this scan disagrees with the automated IG or if promyelocytes are noted, a manual differential will be performed. Immature Gran Absolute 0.04 0.00 - 0.04 x10(3)/mc L [facility] Blood 04/06/2023 10:3 0 PM EDT 04/06/2023 10:46 PM EDT Narrative Resulting Agency Comment Spec In Lab Faina Grijalva MD HEMATOLOGY ORDERAB LES Performing Organization Address City/[facility]/ZIP Co de Phone Number [facility] [place] [address] * (ABNORMAL) Hemogram (04/06/2023 10:30 PM EDT) White Blood Cell 9.8(H) 4.0 - 9.5 x10(3)/mc L [facility] Red Blood Cell 5.07 4.58 - 5.54 x10(6)/mc L [facility] Hemoglobin 14.3 13.7 - 16.5 g/dL [facility] Hematocrit 43.4 40.5 - 48.5 % [facility] Mean Cell Volume 85.6 82.9 - 93.1 fL [facility] Mean Cell Hemoglobin 28.2 27.5 - 32.1 pg [facility] Mean Cell Hemoglobin Concentration 32.9 32.0 - 35.7 g/dL [facility] Platelet 241 145 - 357 x10(3)/mc L [facility] RDW Standard Deviation 45.2(H) 36.0 - 45.0 fL [facility] RDW coefficient of variation 14.6(H) 11.4 - 13.8 % [facility] Mean Platelet Volume 9.9 7.6 - 12.9 fL [facility] NRBC% auto 0.0 % [facility] NRBC Absolute 0.000 0.000 - 0.000 x10(3)/ L [facility] Blood 04/06/2023 10:3 0 PM EDT 04/06/2023 10:46 PM EDT Narrative Resulting Agency Comment Spec In Lab Faina Grijalva MD HEMATOLOGY ORDERAB LES Performing Organization Address City/[facility]/ZIP Co de Phone Number [facility] [place] [address] * TSH Cameron (04/06/2023 10:30 PM EDT) Thyroid Stimulating Hormone 2.28 0.27 - 4.20 mcIU/mL [facility] Comment: Reference Interval (mcIU/mL): Females: ??First Trimester: 0.23-3.88 ??Second Trimester: 0.22-3.90 ??Third Trimester: 0.44-4.66 Blood 04/06/2023 10:3 0 PM EDT 04/06/2023 10:46 PM EDT Narrative Resulting Agency Comment Spec In Lab Darnell Ferguson MD CHEMISTRY ORDERABLES Performing Organization Address [facility] Co de Phone Number [facility] [place] [address] * Magnesium (04/06/2023 10:30 PM EDT) Magnesium 0.82 0.69 - 1.07 mmol/L [facility] Blood 04/06/2023 10:3 0 PM EDT 04/06/2023 10:46 PM EDT Narrative Resulting Agency Comment Spec In Lab Darnell Ferguson MD CHEMISTRY ORDERABLES Performing Organization Address [facility] de Phone Number [facility] [place] [address] * (ABNORMAL) Basic Metabolic Panel (non-fasting) (04/06/2023 10:30 PM EDT) Glucose 104 65 - 199 mg/dL [facility] Comment:Diabetes: >=200 mg/d L plus symptoms Blood Urea Nitrogen 7(L) 10 - 20 mg/dL [facility] Creatinine 0.92 0.80 - 1.50 mg/dL [facility] Sodium 143 135 - 145 mmol/L [facility] Potassium 3.6 3.5 - 5.0 mmol/L [facility] Comment: Please note: ??Patients with WBC >100,000 may have falsely elevated Potassium levels. ??For accurate Potassium quantification in these patients send serum separator tube (gold top) for subsequent determinations. ??Contact the Clinical Chemistry Laboratory if there are any questions. Chloride 106 98 - 107 mmol/L [facility] Carbon Dioxide 26 22 - 31 mmol/L [facility] Anion Gap 11 5 - 15 mmol/L [facility] Calcium 9.6 8.5 - 10.5 mg/dL [facility] Est Glomerular Filtration Rate 99 >=60 mL/min/1. 73 m?? [facility] Comment: This patient's estimated GFR [...] Ferguson MD CHEMISTRY ORDERABLES Performing Organization Address City/[facility] Co de Phone Number [facility] [place] [address] * EKG 12 Lead (04/06/2023 10:24 PM EDT) Ventricular rate 107 BPM MUSE SYSTEM Atrial Rate 107 BPM MUSE SYSTEM P-R Interval 160 ms MUSE SYSTEM QRS Duration 94 ms MUSE SYSTEM Q-T Interval 360 ms MUSE SYSTEM QTC Calculated (Bezet) 480 ms MUSE SYSTEM Calculated P [place] 26 degrees MUSE SYSTEM Calculated R [place] 55 degrees MUSE SYSTEM Calculated T [place] 41 degrees MUSE SYSTEM INTERPRETATION Sinus tachycardia Nonspecific ST abnormality Abnormal ECG When compared with ECG of 18-SEP-2022 09:30, Vent. rate has increased BY ??[address] now depressed in Anterior leads QT has lengthened Confirmed by MD Alecia, Ruperto Moya ([id number]) on 04/09/2023 4:15:28 PM MUSE SYSTEM 04/06/2023 10:2 4 PM EDT 04/09/2023 4:15 PM EDT Darnell Ferguson MD ECG ORDERABLES Performing Organization Address City/[facility]/ZIP Co de Phone Number MUSE SYSTEM documented in this encounter Visit Diagnoses Diagnosis Racing heart beat Tachycardia, unspecified documented in this encounter Care Teams Gps Field Data Collector Relationship Specialty Start Date End Date Amira Hooks PA [address] [place] [address] PCP - General Family Medicine 07/25/22 documented as of this encounter
--- OUTSIDE RECORDS SUMMARY | 2024-06-17 22:18 | XMS_ITS | Encounter Summary ---
Author Organization [facility] Address [facility] [place] [address] Care Team Providers Care Courseware Developer Name Role Phone Amira Hooks Primary [...] AM EDT Office Visit Cardiology at [address] [place] [address] Mo Horne MD [facility] [place] [address] 09/21/2024 10:[address] [place] [address] Rachel Carrasco MD [facility] [place] [address] 09/21/2024 11:00 AM EST Office [place] [phone] Rachel Carrasco MD [facility] [place] [address] documented as of this encounter Visit Diagnoses Not on filedocumented in this encounter Care Teams Courseware Developer Relationship Specialty Start Date End Date Amira Hooks PA [address] [place] [address] PCP - General Family Medicine 07/25/22 documented as of this encounter
--- OUTSIDE RECORDS SUMMARY | 2024-06-17 22:18 | XMS_ITS | Encounter Summary ---
Author Organization [facility] Address [facility] [place] [address] Care Team Providers Care Needle Valve Operator Name Role Phone Amira Hooks Primary Care Provider [phone] Encounter Details Date Type Department Care Team (Late st Contact Info) Description 02/24/2024 Orders [place] [address] Joan Castro MD [facility] [place] [address] Social History Tobacco Use Types Packs/Day Years [...] AM EDT Office Visit Cardiology at [address] [place] [address] Mo Horne MD [facility] [place] [address] 09/21/2024 10:[address] [place] [place] [address] Rachel Carrasco MD [facility] [place] [address] 09/21/2024 11:00 AM EST [place] [phone] Rachel Carrasco MD [facility] [place] [address] documented as of this encounter Visit Diagnoses Not on filedocumented in this encounter Care Teams Needle Valve Operator Relationship Specialty Start Date End Date Amira Hooks PA [address] [place] [id number] PCP - General Family Medicine 07/25/22 documented as of this encounter
--- OUTSIDE RECORDS SUMMARY | 2024-06-17 22:19 | XMS_ITS | Encounter Summary ---
Author Organization [facility] [place] [address] Care Team Providers Care Spd Manager Name Role Phone Amira Hooks Primary Care Provider [phone] Encounter Details Date Type Department Care Team (Late st Contact Info) Description 01/16/2023 Telephone Psychiatry [place] [address] Lori Dean Social History Tobacco Use Types [...] AM EDT Office Visit Cardiology at [address] [place] [phone] Mo Horne MD [facility] [place] [address] 09/21/2024 10:[address] Scan at [place] [phone] [facility] [place] [address] 09/21/2024 11:00 AM EST [place] [phone] [facility] [place] [address] documented as of this encounter Visit Diagnoses Not on filedocumented in this encounter Care Teams Spd Manager Relationship Specialty Start Date End Date Amira Hooks PA [address] [place] [address] PCP - General Family Medicine 07/25/22 documented as of this encounter
--- OUTSIDE RECORDS SUMMARY | 2024-06-17 22:19 | XMS_ITS | Encounter Summary ---
Author Organization [facility] Address [facility] [place] [address] Care Team Providers Care Payroll And Benefits Assistant Name Role Phone Bin Bowman MD Primary Care Provider Encounter Details Date Type Department Care Team (Late st Contact Info) Description 04/05/2021 Orders Only Cardiology at [address] [address] Fadi Escobar MD [facility] [place] [address] On amiodarone therapy Social History Tobacco Use [...] AM EDT Office Visit Cardiology at [address] [address] Mo Horne MD [facility] [place] [address] 09/21/2024 10:[address] [place] [place] [address] Rachel Carrasco MD [facility] [place] [address] 09/21/2024 11:00 AM EST [place] [address] Rachel Carrasco MD [facility] [place] [address] documented as of this encounter Visit Diagnoses Diagnosis On amiodarone therapy documented in this encounter Care Teams Payroll And Benefits Assistant Relationship Specialty Start Date End Date Bin Bowman MD [address] [address] PCP - General General Internal Medicine 04/21/1707/11 documented as of this encounter
--- OUTSIDE RECORDS SUMMARY | 2024-06-17 22:19 | XMS_ITS | Encounter Summary ---
Author Organization Formerly [facility] Address [facility] [place] [address] Care Team Providers Care Res Counselor Name Role Phone Bin Bowman MD Primary Care Provider Reason for Referral * Diagnostic Test (Routine) - Closed Specialty Diagnoses / Procedures Referred By Contac t Referred To Contact Cardiology Diagnoses PAF (paroxysmal atrial fibrillation) SVT (supraventricular tachycardia) Atrial flutter, unspecified type Procedures Ziopatch 48 Hrs-15 Days Fadi Escobar MD [facility] [place] [address] [facility] [place] [address] Referral ID Status Reason Start Date Expiration Date V isits Requested Visits Authorized [id number] Closed Specialty Service Requested 09/20/2021 12/21/2021 1 1 Encounter Details Date Type Department Care Team (Late st Contact Info) Description 08/29/2021 Orders Only Cardiology at [address] [address] Fadi Escobar MD [facility] [place] [address] PAF (paroxysmal atrial fibrillation); SVT (supraventricular tachycardia); [...] AM EDT Office Visit Cardiology at [address] [place] [address] Mo Horne MD [facility] [place] [address] 09/21/2024 10:[address] [place] [place] [phone] Rachel Carrasco MD [facility] [place] [address] 09/21/2024 11:00 AM EST [place] [phone] Rachel Carrasco MD [facility] [place] [address] documented as of this encounter Results * Ziopatch 48 Hrs-15 Days (09/20/2021 7:00 AM EST) Anatomical Region Laterality Modality Other Narrative 10/24/2021 8:50 AM EST [facility] ? Zio Patch? Ambulatory Cardiac Event Monitor [...] type documented in this encounter Care Teams Res Counselor Relationship Specialty Start Date End Date Bin Bowman MD [address] [place] [address] PCP - General General Internal Medicine 04/21/1707/11 documented as of this encounter
--- OUTSIDE RECORDS SUMMARY | 2024-06-17 22:19 | XMS_ITS | Encounter Summary ---
Author Organization [facility]ending [facility] Address [facility] [place] [address] Care Team Providers Care Cosmetologist Name Role Phone Bin Bowman MD Primary Care Provider Reason for Visit * Reason Comments Medication Refill Encounter Details Date Type Department Care Team (Late st Contact Info) Description 03/20/2022 Refill Cardiology at [address] [address] Jag Lopez PA [facility] [place] [address] Medication Refill Social History Tobacco Use Types [...] BY MOUTH TWICE A DAY Anahy Paulino recreational programs director Clinic at [facility] [address] documented in this encounter Plan of Treatment Upcoming Encounters Date Type Department Care Team (Late st Contact Info) Description 06/23/2024 10:00 AM EDT Office Visit Cardiology at [address] [place] [phone] Mo Horne MD [facility] [place] [address] 09/21/2024 10:[address] Scan at [place] [phone] Rachel Carrasco MD [facility] [place] [address] 09/21/2024 11:00 AM EST Office Visit Urology at [address] Rachel Carrasco MD [facility] [place] [address] documented as of this encounter Visit Diagnoses Diagnosis Atrial arrhythmia Cardiac dysrhythmia, unspecified documented in this encounter Care Teams Cosmetologist Relationship Specialty Start Date End Date Bin Bowman MD [address] [place] [id number] PCP - General General Internal Medicine 04/21/1707/11 documented as of this encounter
--- OUTSIDE RECORDS SUMMARY | 2024-06-17 22:19 | XMS_ITS | Encounter Summary ---
Author Organization [facility] Address [facility] [place] [address] Care Team Providers Care Architecture Analyst Name Role Phone Bin Bowman MD Primary Care Provider [phone] Reason for Visit * Reason Comments Medication Refill Encounter Details Date Type Department Care Team (Late st Contact Info) Description 03/20/2022 Refill Cardiology at [address] [address] Jag Lopez PA [facility] [place] [address] Medication Refill Social History Tobacco Use Types [...] AM EDT Office Visit Cardiology at [address] [address] Mo Horne MD [facility] [place] [address] 09/21/2024 10:[address] [place] [place] [address] Rachel Carrasco MD [facility] [place] [address] 09/21/2024 11:00 AM EST Office [place] [address] Rachel Carrasco MD [facility] [place] [address] documented as of this encounter Visit Diagnoses Diagnosis Atrial arrhythmia Cardiac dysrhythmia, unspecified documented in this encounter Care Teams Architecture Analyst Relationship Specialty Start Date End Date Bin Bowman MD [address] [place] [id number] PCP - General General Internal Medicine 04/21/1707/11 documented as of this encounter
--- OUTSIDE RECORDS SUMMARY | 2024-06-17 22:19 | XMS_ITS | Encounter Summary ---
Author Organization [facility] Address [facility] [place] [address] Care Team Providers Care Research Consultant Name Role Phone Bin Bowman MD Primary Care Provider Encounter Details Date Type Department Care Team (Late st Contact Info) Description 03/19/2021 3:20 PM EDT Office Visit Cardiology at [address] [address] Fadi Escobar MD [facility] [place] [address] Atrial arrhythmia; Atrial fibrillation with rapid ventricular [...] 03/19/2021 3:20 PM EDT Cardiac Electrophysiology Clinic [place] Office March 19, 2021 Slip Seat Coverer: Jose Culver MD Primary Care: Bin Bowman MD Reason for Visit: S/p mapping and ablation of atrial fibrillation complicated by cardiac tamponade Backgound: 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 Per my recollection, after initial an [id number] cc of drainage, there was a trivial [...] follow up visit, having recently worn a [email or web address] monitor. He reports having done much better [...] Coronary artery disease > July 2017 at [facility]: Non-STEMI (EMMY of OM1) > LVEF 55-60% [...] EC 40 mg daily ?? 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 Neurological: Grossly intact. Tests: [email or web address] Monitor (February 22, 2021; analyzed 11 days [...] (on amiodarone therapy, s/p ablation 3months ago). ETF.como Monitor (August 02, 2020; analyzed 13 days [...] of ectopy were detected. Stress??Imaging??(March 14, 2019; [facility]):??Moderate size severely intense fixed inferolateraldefect. LVEF 50%. [...] inferior infarction. Electrocardiogram??(April 27, 2020):??Sinus rhythm 82/minute, CT 156 m, QRS duration 102 ms, QTc [...] and this is not intendedto be a snf therapeutic plan)... monitoring for early signs of amiodarone toxicty remains important: > Renal/hepatic profile and TSH to be obtained in ~2-3 months > Annual ophthalmologic exam > Chest radiograph towards end of year (last image was February 14) > Some of this possibly can be obtained closer to home ([place], [place]) 4) Continue apixaban anticoagulation 5) Follow up ~July, sooner as needed - reconsider reduction amiodarone documented in this encounter Plan of Treatment Upcoming Encounters Date Type Department Care Team (Late st Contact Info) Description 06/23/2024 10:00 AM EDT Office Visit Cardiology at [address] [place] [address] Mo Horne MD [facility] [place] [address] 09/21/2024 10:[address] Scan at [facility] [place] [address] Rachel Carrasco MD [facility] [place] [address] 09/21/2024 11:00 AM EST [place] [address] Rachel Carrasco MD [facility] [place] [address] documented as of this encounter Visit Diagnoses Diagnosis Atrial arrhythmia Cardiac dysrhythmia, unspecified Atrial fibrillation with rapid ventricular response Atrial fibrillation documented in this encounter Care Teams Research Consultant Relationship Specialty Start Date End Date Bin Bowman MD [address] [place] [address] PCP - General General Internal Medicine 04/21/1707/11 documented as of this encounter
--- OUTSIDE RECORDS SUMMARY | 2024-06-17 22:19 | XMS_ITS | Encounter Summary ---
[place] [address] Care Team Providers Care Spooling Machine Operator Name Role Phone Bin Bowman MD Primary Care Provider [phone] Encounter Details Date Type Department Care Team (Late Contact Info) Description 04/23/2021 Telephone Cardiology at [address] [phone] Ivonne Nicole, RN Social History Tobacco Use [...] AM EDT Office Visit Cardiology at [address] [address] Mo Horne MD [facility] [place] [address] 09/21/2024 10:[address] [place] [place] [address] Rachel Carrasco MD [facility] UROLOGY [place], [place] [address] 09/21/2024 11:00 AM EST [place] [phone] Rachel Carrasco MD [facility] [place] [address] documented as of this encounter Visit Diagnoses Not on filedocumented in this encounter Care Teams Spooling Machine Operator Relationship Specialty Start Date End Date Bin Bowman MD [address] [place] [address] PCP - General General Internal Medicine 04/21/1707/11 documented as of this encounter
--- OUTSIDE RECORDS SUMMARY | 2024-06-17 22:19 | XMS_ITS | Encounter Summary ---
Author Organization [facility] Address [facility] [place] [address] Care Team Providers Care Leguillon Debeader Name Role Phone Amira Hooks Primary Care Provider Reason for Referral * Psychiatric (Routine) - Closed Specialty Diagnoses / Procedures Referred By Contestuardo t Referred To Contact Psychiatry Diagnoses Bipolar affective disorder, remission status unspecified Panic disorder Depression with anxiety Coty Barr APRN [address] [place] [address] Bin Hughes, PhD [facility] [place] [address] Referral ID Status Reason Start Date Expiration Date V isits Requested Visits Authorized [id number] Closed Consult, Test & Treat PCP Updated and/or Approved 07/25/2022 07/25/2023 6 6 Encounter Details Date Type Department Care Team (Latest Contact Info) Description 07/25/2022 Transcribe Orders eDH Incoming Referrals [phone] Coty Barr APRN [address] [place], [place] [address] Bipolar affective disorder, remission status unspecified; Panic [...] AM EDT Office Visit Cardiology at [address] [place] [address] Mo Horne MD [facility] [place] [address] 09/21/2024 10:[address] [place] [place] [address] Rachel Carrasco MD [facility] [place] [address] 09/21/2024 11:00 AM EST [place] [address] Rachel Carrasco MD [facility] [place] [address] Scheduled Referrals Name Type Priority Associated Diagnoses Order Schedule Referral to Psychiatry Outpatient Referral Routine Bipolar affective disorder, remission status unspecified Panic disorder Depression with anxiety Ordered: 07/25/2022 documented as of this encounter Visit Diagnoses Diagnosis Bipolar affective disorder, remission status unspecified Panic disorder Panic disorder without agoraphobia Depression with anxiety Dysthymic disorder documented in this encounter Care Teams Leguillon Debeader Relationship Specialty Start Date End Date Amira Hooks PA [address] [place] [address] PCP - General Family Medicine 07/25/22 documented as of this encounter
--- OUTSIDE RECORDS SUMMARY | 2024-06-17 22:19 | XMS_ITS | Encounter Summary ---
Author Organization [facility] Address [facility] [place] [address] Care Team Providers Care Milk Driver Name Role Phone Bin Bowman MD Primary Care Provider [phone] Reason for Visit * Reason Onset Date Comments Medication Refill 05/08/2021 Lipitor Encounter Details Date Type Department Care Team (Late st Contact Info) Description 05/08/2021 Refill Cardiology at [address] [address] Mary Daley PA [facility] [place] [address] Medication Refill (Lipitor) Social History Tobacco Use [...] AM EDT Office Visit Cardiology at [address] [address] Mo Horne MD [facility] [place] [address] 09/21/2024 10:[address] [place] [address] Rachel Carrasco MD [facility] [place] [address] 09/21/2024 11:00 AM EST Office [place] [phone] Rachel Carrasco MD [facility] [place] [address] documented as of this encounter Visit Diagnoses Diagnosis Hyperlipidemia, unspecified hyperlipidemia type documented in this encounter Care Teams Milk Driver Relationship Specialty Start Date End Date Bin Bowman MD [address] [place] [address] PCP - General General Internal Medicine 04/21/1707/11 documented as of this encounter
--- OUTSIDE RECORDS SUMMARY | 2024-06-17 22:19 | XMS_ITS | Encounter Summary ---
Author Organization Formerly [facility] Address [facility] [place] [address] Care Team Providers Care Windows Server Architect Name Role Phone Amira Hooks Primary Care Provider Encounter Details Date Type Department Care Team (Late Contact Info) Description 12/23/2022 Telephone Psychiatry [place] [address] Joana Mabry, PhD [facility] [place] [address] Social History Tobacco Use Types Packs/Day Years [...] AM EDT Office Visit Cardiology at [address] [address] Mo Horne MD [facility] [place] [address] 09/21/2024 10:[address] [place] [address] Rachel Carrasco MD [facility] [place] [address] 09/21/2024 11:00 AM EST Office [place] [address] Rachel Carrasco MD [facility] [place] [address] documented as of this encounter Visit Diagnoses Not on filedocumented in this encounter Care Teams Windows Server Architect Relationship Specialty Start Date End Date Amira Hooks PA [address] [place] [address] PCP - General Family Medicine 07/25/22 documented as of this encounter
--- OUTSIDE RECORDS SUMMARY | 2024-06-17 22:19 | XMS_ITS | Encounter Summary ---
Author Organization [facility] [place] [address] Care Team Providers Care Catalog Specialist Name Role Phone Amira Hooks Primary [...] AM EDT Office Visit Cardiology at [address] [address] Mo Horne MD [facility] [place] [address] 09/21/2024 10:[address] [place] [address] Rachel Carrasco MD [facility] [place] [address] 09/21/2024 11:00 AM EST Office [place] [address] Rachel Carrasco MD [facility] [address] [place] [address] documented as of this encounter Visit Diagnoses Not on filedocumented in this encounter Care Teams Catalog Specialist Relationship Specialty Start Date End Date Amira Hooks PA [address] [place] [address] PCP - General Family Medicine 07/25/22 documented as of this encounter
--- OUTSIDE RECORDS SUMMARY | 2024-06-17 22:19 | XMS_ITS | Encounter Summary ---
Author Organization [facility] [place] [address] Care Team Providers Care Registered Account Administrator Name Role Phone Bin Bowman MD Primary Care Provider Encounter Details Date Type Department Care Team (Late st Contact Info) Description 03/22/2022 Orders [place] [address] Joss Painter MD [facility] [place] [address] Social History Tobacco Use Types Packs/Day Years [...] AM EDT Office Visit Cardiology at [address] [address] Mo Horne MD [facility] [place] [address] 09/21/2024 10:[address] [place] [address] Rachel Carrasco MD [facility] [place] [address] 09/21/2024 11:00 AM EST Office [place] [address] Rachel Carrasco MD [facility] [place] [address] documented as of this encounter Visit Diagnoses Not on filedocumented in this encounter Care Teams Registered Account Administrator Relationship Specialty Start Date End Date Bin Bowman MD [address] [address] PCP - General General Internal Medicine 04/21/1707/11 documented as of this encounter
--- OUTSIDE RECORDS SUMMARY | 2024-06-17 22:19 | XMS_ITS | Encounter Summary ---
Author Organization [facility] Address [facility] [place] [address] Care Team Providers Care .Net Architect Name Role Phone Bin Bowman MD Primary Care Provider Reason for Visit * Reason Onset Date Comments Medication Refill 04/06/2022 Encounter Details Date Type Department Care Team (Late st Contact Info) Description 04/06/2022 Refill Cardiology at [address] [address] Fadi Escobar MD [facility] [place] [address] Medication Refill Social History Tobacco Use Types [...] AM EDT Office Visit Cardiology at [address] [address] Mo Horne MD [facility] [place] [address] 09/21/2024 10:[address] [place] [place] [address] Rachel Carrasco MD [facility] [place] [address] 09/21/2024 11:00 AM EST [place] [phone] Rachel Carrasco MD [facility] [place] [address] documented as of this encounter Visit Diagnoses Not on filedocumented in this encounter Care Teams .Net Architect Relationship Specialty Start Date End Date Bin Bowman MD [address] [place] [address] PCP - General General Internal Medicine 04/21/1707/11 documented as of this encounter
--- OUTSIDE RECORDS SUMMARY | 2024-06-17 22:19 | XMS_ITS | Encounter Summary ---
Author Organization [facility] Address [facility] [place] [address] Care Team Providers Care Or Director Name Role Phone Bin Bowman MD Primary Care Provider Encounter Details Date Type Department Care Team (Late st Contact Info) Description 12/05/2021 10:40 AM EST Office Visit Cardiology at [address] [address] Fadi Escobar MD [facility] [place] [address] Atrial arrhythmia Social History Tobacco Use Types [...] 12/05/2021 10:40 AM EST Cardiac Electrophysiology Clinic [facility] 2021 (last visit July 25, 2021) ?? Finishing Supervisor: Jose Culver MD Primary Care: Bin Bowman MD ?? Reason for Visit: Follow up Backgound: Mr. Aguilar is a 50 year old gentleman who has had multiple symptomatic episodes of paroxysmal atrial tachycardia +/- fibrillation (AF), with numerous trips to the local emergency room in [facility] for some of those symptomatic episodes. [...] reduced to 200 mg daily as of [id number] June. He reported early on having felt [...] 2) Coronary artery disease >?July 2017 at [facility]: Non-STEMI (EMMY of OM1) >?LVEF 55-60% [...] 20 mg daily, ...) ?? 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; sedentary lifestyle ?Smoking:??Quit 2011 (30 pack [...] burden ofectopy were detected. Stress??Imaging??(March 14, 2019; [facility]):??Moderate size severely intense fixed inferolateraldefect. [...] inferior infarction. Electrocardiogram??(April 27, 2020):??Sinus rhythm 82/minute, FL 156 m, QRS duration 102 ms, QTc 416ms, old inferior infarction. Chest Radiograph (July 18, 2021): No indication of amiodarone toxicity. Blood Tests (July 19, 2021; [place], [place]): Heaptic enzymes normal (albumin and calcium slight [...] AM EDT Office Visit Cardiology at [address] [place] [address] Mo Horne MD [facility] [place] [address] 09/21/2024 10:[address] [place] [address] Rachel Carrasco MD [facility] [place] [address] 09/21/2024 11:00 AM EST Office [place] [address] Rachel Carrasco MD [facility] [place] [address] documented as of this encounter Visit Diagnoses Diagnosis Atrial arrhythmia Cardiac dysrhythmia, unspecified documented in this encounter Care Teams Or Director Relationship Specialty Start Date End Date Bin Bowman MD [address] [place] [address] PCP - General General Internal Medicine 04/21/1707/11 documented as of this encounter
--- OUTSIDE RECORDS SUMMARY | 2024-06-17 22:19 | XMS_ITS | Encounter Summary ---
Author Organization [facility] [place] [address] Care Team Providers Care Practice Support Specialist Name Role Phone Amira Hooks Primary Care Provider Encounter Details Date Type Department Care Team (Late st Contact Info) Description 08/06/2022 Telephone Weight and Wellness at [facility] [address] [place] [address] Daysi Greene, SPEECH PATHOLOGY ASSISTANT Social History Tobacco Use Types Packs/Day Years [...] Notes * Telephone Encounter - Daysi Greene SPEECH PATHOLOGY ASSISTANT - 08/06/2022 1:32 PM EDT [facility] Life Assurance Representative Pre-telemedicine Visit Phone Note Rolo Aguilar 1970 [] Patient was not reached Patient was reached and the following information was reviewed/obtained per protocol: [x] Confirmed patient name and date of [x] Confirmed ZOOM downloaded and functioning [] ZOOM appointment link sent if no MyDH [x] Phone number to be reached is: [phone] REVIEW: [x] Review of patient medications completed Have you started on any NEW medications? [] No [] Yes: [x] Confirmed preferred pharmacy[place] [facility] [place] delivery Reminders Your provider might ask you what you ate the day prior to the visit Please weigh yourself before the appointment Pedi: Both parent and child need to be present for the visit documented in this encounter Plan of Treatment Upcoming Encounters Date Type Department Care Team (Late st Contact Info) Description 06/23/2024 10:00 AM EDT Office Visit Cardiology at [address] [address] Mo Horne MD [facility] [place] [address] 09/21/2024 10:[address] [place] [place] [address] Rachel Carrasco MD [facility] [place] [address] 09/21/2024 11:00 AM EST [place] [address] Rachel Carrasco MD [facility] [place] [address] documented as of this encounter Visit Diagnoses Not on filedocumented in this encounter Care Teams Practice Support Specialist Relationship Specialty Start Date End Date Amira Hooks PA [address] [place] [address] PCP - General Family Medicine 07/25/22 documented as of this encounter
--- OUTSIDE RECORDS SUMMARY | 2024-06-17 22:19 | XMS_ITS | Encounter Summary ---
Author Organization [facility] [place] [address] Care Team Providers Care Consultant Education Name Role Phone Amira Hooks Primary Care [...] AM EDT Office Visit Cardiology at [address] [address] Mo Horne MD [facility] [place] [address] 09/21/2024 10:[address] [place] [address] Rachel Carrasco MD [facility] [place] [address] 09/21/2024 11:00 AM EST Office [place] [address] Rachel Carrasco MD [facility] [place] [address] documented as of this encounter Visit Diagnoses Not on filedocumented in this encounter Care Teams Consultant Education Relationship Specialty Start Date End Date Amira Hooks PA [address] [place] [address] PCP - General Family Medicine 07/25/22 documented as of this encounter
--- OUTSIDE RECORDS SUMMARY | 2024-06-17 22:19 | XMS_ITS | Encounter Summary ---
Author Organization [facility] [place] [address] Care Team Providers Care Credentialing Specialist Name Role Phone Bin Bowman MD Primary Care Provider [phone] Reason for Visit * Reason Onset Date Comments Medication Refill 05/31/2021 Encounter Details Date Type Department Care Team (Late st Contact Info) Description 05/31/2021 Refill [place] [address] Harini Jansen MD [facility] [place] [address] Social History Tobacco Use Types Packs/Day Years [...] AM EDT Office Visit Cardiology at [address] [place] [address] Mo Horne MD [facility] [place] [address] 09/21/2024 10:[address] [place] [place] [address] Rachel Carrasco MD [facility] [place] [address] 09/21/2024 11:00 AM EST Office [place] [address] Rachel Carrasco MD [facility] [place] [address] documented as of this encounter Visit Diagnoses Not on filedocumented in this encounter Care Teams Credentialing Specialist Relationship Specialty Start Date End Date Bin Bowman MD [address] [place] [address] PCP - General General Internal Medicine 04/21/1707/11 documented as of this encounter
--- OUTSIDE RECORDS SUMMARY | 2024-06-17 22:19 | XMS_ITS | Encounter Summary ---
Author Organization [facility] [place] [address] Care Team Providers Care Product Operations Associate Name Role Phone Amira Hooks Primary [...] AM EDT Office Visit Cardiology at [address] [address] Mo Horne MD [facility] [place] [address] 09/21/2024 10:[address] [place] [address] Rachel Carrasco MD [facility] [place] [address] 09/21/2024 11:00 AM EST Office [place] [address] Rachel Carrasco MD [facility] [place] [address] documented as of this encounter Visit Diagnoses Not on filedocumented in this encounter Care Teams Product Operations Associate Relationship Specialty Start Date End Date Amira Hooks PA [address] [place] [address] PCP - General Family Medicine 07/25/22 documented as of this encounter
--- OUTSIDE RECORDS SUMMARY | 2024-06-17 22:19 | XMS_ITS | Encounter Summary ---
Author Organization [facility] [place] [address] Care Team Providers Care Fisher Dip Net Name Role Phone Amira Hooks Primary Care [...] AM EDT Office Visit Cardiology at [address] [address] Mo Horne MD [facility] [place] [address] 09/21/2024 10:[address] [place] [address] Rachel Carrasco MD [facility] [place] [address] 09/21/2024 11:00 AM EST Office [place] [address] Rachel Carrasco MD [facility] [place] [address] documented as of this encounter Visit Diagnoses Not on filedocumented in this encounter Care Teams Fisher Dip Net Relationship Specialty Start Date End Date Amira Hooks PA [address] [place] [address] PCP - General Family Medicine 07/25/22 documented as of this encounter
--- OUTSIDE RECORDS SUMMARY | 2024-06-17 22:19 | XMS_ITS | Encounter Summary ---
Author Organization [facility] Address [facility] [place] [address] Care Team Providers Care Hotel Dining Room Cashier Name Role Phone Bin Bowman MD Primary Care Provider Encounter Details Date Type Department Care Team (Late st Contact Info) Description 11/27/2021 Orders Only Cardiology at [address] [address] Fadi Escobar MD [facility] [place] [address] On amiodarone therapy (Primary Dx); SVT (supraventricular [...] AM EDT Office Visit Cardiology at [address] [address] Mo Horne MD [facility] [place] [address] 09/21/2024 10:[address] [place] [address] Rachel Carrasco MD [facility] [place] [address] 09/21/2024 11:00 AM EST Office [place] [address] Rachel Carrasco MD [facility] [place] [address] documented as of this encounter Visit Diagnoses Diagnosis On amiodarone therapy- Primary SVT (supraventricular tachycardia) Other specified cardiac dysrhythmias Atrial fibrillation with rapid ventricular response Atrial fibrillation documented in this encounter Care Teams Hotel Dining Room Cashier Relationship Specialty Start Date End Date Bin Bowman MD [address] [place] [address] PCP - General General Internal Medicine 04/21/1707/11 documented as of this encounter
--- OUTSIDE RECORDS SUMMARY | 2024-06-17 22:19 | XMS_ITS | Encounter Summary ---
Author Organization [facility] Address [facility] [place] [address] Care Team Providers Care Cloth Pattern Maker Name Role Phone Bin Bowman MD Primary Care Provider Encounter Details Date Type Department Care Team (Late st Contact Info) Description 06/01/2021 Orders Only Cardiology at [address] [address] Fadi Escobar MD [facility] [place] [address] On amiodarone therapy Social History Tobacco Use [...] 10:00 AM EDT Office Visit Cardiology at [address] [address] Mo Horne MD [facility] [place] [address] 09/21/2024 10:[address] [place] [address] Rachel Carrasco MD [facility] [place] [address] 09/21/2024 11:00 AM EST Office [place] [address] Rachel Carrasco MD [facility] [place] [address] documented as of this encounter Results * EKG 12 Lead (07/25/2021 8:34 AM EDT) Ventricular rate 62 BPM MUSE SYSTEM Atrial Rate 62 BPM MUSE SYSTEM P-R Interval 136 ms MUSE SYSTEM QRS Duration 100 ms MUSE SYSTEM Q-T Interval 448 ms MUSE SYSTEM QTC Calculated (Bezet) 454 ms MUSE SYSTEM Calculated P Donald 34 degrees MUSE SYSTEM Calculated R Donald 65 degrees MUSE SYSTEM Calculated T Donald 43 degrees MUSE SYSTEM INTERPRETATION Sinus rhythm [...] therapy documented in this encounter Care Teams Cloth Pattern Maker Relationship Specialty Start Date End Date Bin Bowman MD [address] [place] [address] PCP - General General Internal Medicine 04/21/1707/11 documented as of this encounter
--- OUTSIDE RECORDS SUMMARY | 2024-06-17 22:19 | XMS_ITS | Encounter Summary ---
Author Organization [facility] Address [facility] [place] [address] Care Team Providers Care Station Superintendent Name Role Phone Amira Hooks Primary Care Provider Reason for Visit * Reason Comments Tachycardia SVT Encounter Details Date Type Department Care Team (Late st Contact Info) Description 09/18/2022 9:00 AM EST Office Visit Cardiology at [address] [phone] Mo Horne MD [facility] [place] [address] S/P ablation of atrial fibrillation Social History [...] time For any questions, call my office: [phone] To access your health care information, go to the web at: [email or web address] (you will need to register) For educational materials: [email or web address]_[email or web address] Mo BARTON.[facility], Clinical Cardiac Electrophysiology, [facility], For more information about heart rhythm issues, go to [email or web address] - the Heart Rhythm Society's patient resource center [facility] To access your health care information, go to the web at: [email or web address] [place] (you will need to register) Heart-Healthy Lifestyle [...] more? Visit our health information library at [email or web address]-[email or web address]-[email or web address].html You can also view health information on [employer], your personal patient account. Log in or sign uptoday. * Attachments The following attachments cannot be sent through Care Everywhere. * Rhythm-Control Medicines: General Info (Romanian) documented in this encounter Progress Notes * Mo Horne MD - 09/18/2022 9:00 AM EST Images from the original note were not included. Clinical Cardiac Electrophysiology Follow Up Patient ID Rolo Aguilar [id number] Rolo Aguilar is following up in EP [...] tachycardia) Added automatically from request for surgery [id number] ??? PAF (paroxysmal atrial fibrillation) Added automatically from request for surgery [id number] ??? Flutter-fibrillation ??? H/O cardiac radiofrequency ablation ??? Coronary disease ?? 2017: STEMI. PCI of OM1. EF 60%. Many ER visits to [facility] after this. ??? Heart palpitations [...] reviewed the ECG: sinus rhythm, 61 bpm, VT 180 ms, QRS 100 ms, QT 420 [...] 6 months MO HORNE MD Cardiac Electrophysiology [facility] [place] 35 minutes of this 45 minute encounter [...] AM EDT Office Visit Cardiology at [address] [address] Mo Horne MD [facility] [place] [address] 09/21/2024 10:[address] [place] [address] Rachel Carrasco MD [facility] [place] [address] 09/21/2024 11:00 AM EST Office [place] [address] Rachel Carrasco MD [facility] [place] [address] documented as of this encounter Visit Diagnoses Diagnosis S/P ablation of atrial fibrillation Other postprocedural status documented in this encounter Care Teams Station Superintendent Relationship Specialty Start Date End Date Amira Hooks PA [address] [address] PCP - General Family Medicine 07/25/22 documented as of this encounter
--- OUTSIDE RECORDS SUMMARY | 2024-06-17 22:19 | XMS_ITS | Encounter Summary ---
Author Organization [facility] Miriam [place] [address] Care Team Providers Care Parcel Post Delivery Name Role Phone Bin Bowman MD Primary Care Provider [phone] Reason for Visit * Reason Comments Medication Refill Encounter Details Date Type Department Care Team (Late st Contact Info) Description 08/02/2021 Refill Cardiology at [address] [address] Fadi Escobar MD [facility] [place] [address] Medication Refill Social History Tobacco Use Types [...] AM EDT Office Visit Cardiology at [address] [address] Mo Horne MD [facility] [place] [address] 09/21/2024 10:[address] [place] [address] Rachel Carrasco MD [facility] [place] [address] 09/21/2024 11:00 AM EST Office [place] [address] Rachel Carrasco MD [facility] [place] [address] documented as of this encounter Visit Diagnoses Diagnosis Flutter-fibrillation Other premature beats documented in this encounter Care Teams Parcel Post Delivery Relationship Specialty Start Date End Date Bin Bowman MD [address] [place] [address] PCP - General General Internal Medicine 04/21/1707/11 documented as of this encounter
--- OUTSIDE RECORDS SUMMARY | 2024-06-17 22:19 | XMS_ITS | Encounter Summary ---
Author Organization [facility] [place] [address] Care Team Providers Care Latex Spooler Name Role Phone Bin Bowman MD Primary Care Provider Reason for Visit * Reason Onset Date Comments Questions 05/31/2021 Encounter Details Date Type Department Care Team (Late st Contact Info) Description 05/31/2021 Telephone Cardiology at [address] [phone] Lennie Garcia, RN Questions Social History Tobacco [...] and this is not intended villa a skilled nursing therapeutic plan) Pt is scheduled for f/u [...] AM EDT Office Visit Cardiology at [address] [place] [address] Mo Horne MD [facility] [place] [address] 09/21/2024 10:[address] [place] [address] Rachel Carrasco MD [facility] [place] [address] 09/21/2024 11:00 AM EST Office [place] [phone] Rachel Carrasco MD [facility] [address] documented as of this encounter Visit Diagnoses Not on filedocumented in this encounter Care Teams Latex Spooler Relationship Specialty Start Date End Date Bin Bowman MD [address] [place] [address] PCP - General General Internal Medicine 04/21/1707/11 documented as of this encounter
--- OUTSIDE RECORDS SUMMARY | 2024-06-17 22:19 | XMS_ITS | Encounter Summary ---
Author Organization [facility] [place] [address] Care Team Providers Care Real Estate Agency Licensee Name Role Phone Bin Bowman MD Primary Care Provider [phone] Encounter Details Date Type Department Care Team (Late st Contact Info) Description 03/19/2021 Telephone Cardiology at [address] [address] Jami Gurrola Social History Tobacco Use Types [...] AM EDT Office Visit Cardiology at [address] [place] [address] Mo Horne MD [facility] [place] [address] 09/21/2024 10:[address] [place] [phone] Rachel Carrasco MD [facility] [place] [address] 09/21/2024 11:00 AM EST [place] [address] Rachel Carrasco MD [facility] [place] [address] documented as of this encounter Visit Diagnoses Not on filedocumented in this encounter Care Teams Real Estate Agency Licensee Relationship Specialty Start Date End Date Bin Bowman MD [address] [place] [address] PCP - General General Internal Medicine 04/21/1707/11 documented as of this encounter
--- OUTSIDE RECORDS SUMMARY | 2024-06-17 22:19 | XMS_ITS | Encounter Summary ---
[place] [address] Care Team Providers Care Pcb Designer Name Role Phone Amira Hooks Primary Care Provider Reason for Referral * Consultation (Routine) - Closed Specialty Diagnoses / Procedures Referred By Zeyad mishra Referred To Contact General Surgery Diagnoses Morbid obesity Blood glucose elevated Hypertension, unspecified type Other sleep apnea Amira Hooks PA [address] [place] [address], [place] [address] [facility] Gen Surgery [address] [place] [phone] Referral ID Status Reason Start Date Expiration Date V isits Requested Visits Authorized [id number] Closed Consult, Test & Treat PCP Updated and/or Approved 12/09/2022 12/09/2023 6 6 Encounter Details Date Type Department Care Team (Latest Contact Info) Description 12/09/2022 Transcribe Orders eD Incoming Referrals [phone] Amira Hooks PA [address] [place] [address] Morbid obesity; Blood glucose elevated; Hypertension, unspecified [...] AM EDT Office Visit Cardiology at [address] [place] [address] Mo Horne MD [facility] [place] [address] 09/21/2024 10:[address] [place] [place] [address] Rachel Carrasco MD [facility] [place] [address] 09/21/2024 11:00 AM EST [place] [address] Rachel Carrasco MD [facility] [place] [address] Scheduled Referrals Name Type Priority Associated Diagnoses Orde r Schedule Referral to Bariatric Surgery Program Outpatient Referral Routine Morbid obesity Blood glucose elevated Hypertension, unspecified type Other sleep apnea Ordered: 12/09/2022 documented as of this encounter Visit Diagnoses Diagnosis Morbid obesity Blood glucose elevated Other abnormal glucose Hypertension, unspecified type Other sleep apnea documented in this encounter Care Teams Pcb Designer Relationship Specialty Start Date End Date Amira Hooks PA [address] [address] PCP - General Family Medicine 07/25/22 documented as of this encounter
--- OUTSIDE RECORDS SUMMARY | 2024-06-17 22:19 | XMS_ITS | Encounter Summary ---
Author Organization [facility] Address [facility] [place] [address] Care Team Providers Care Electrical Products Engineer Name Role Phone Bin Bowman MD Primary Care Provider Reason for Visit * Reason Comments Medication Refill Encounter Details Date Type Department Care Team (Late st Contact Info) Description 08/02/2021 Refill Cardiology at [address] [address] Mary Daley PA [facility] [place] [address] Medication Refill Social History Tobacco Use Types [...] scheduled for: not scheduled yet Anahy Paulino [facility] [place] [phone] documented in this encounter Plan of Treatment Upcoming Encounters Date Type Department Care Team (Late st Contact Info) Description 06/23/2024 10:00 AM EDT Office Visit Cardiology at [address] [place] [address] Mo Horne MD [facility] [place] [address] 09/21/2024 10:[address] Scan at [place] [phone] Rachel Carrasco MD [facility] [place] [address] 09/21/2024 11:00 AM EST Office [place] [address] Rachel Carrasco MD [facility] [place] [address] documented as of this encounter Visit Diagnoses Diagnosis Hyperlipidemia, unspecified hyperlipidemia type documented in this encounter Care Teams Electrical Products Engineer Relationship Specialty Start Date End Date Bin Bowman MD [address] [place] [address] PCP - General General Internal Medicine 04/21/1707/11 documented as of this encounter
--- OUTSIDE RECORDS SUMMARY | 2024-06-17 22:19 | XMS_ITS | Encounter Summary ---
Author Organization [facility] [place] [address] Care Team Providers Care Dental Receptionist Name Role Phone Amira Hooks Primary Care Provider [phone] Encounter Details Date Type Department Care Team [...] AM EDT Office Visit Cardiology at [address] [address] Mo Horne MD [facility] [place] [address] 09/21/2024 10:[address] [place] [address] Rachel Carrasco MD [facility] [place] [address] 09/21/2024 11:00 AM EST Office Visit [place] [address] Rachel Carrasco MD [facility] [place] [address] documented as of this encounter Visit Diagnoses Not on filedocumented in this encounter Care Teams Dental Receptionist Relationship Specialty Start Date End Date Amira Hooks PA [address] [place] [address] PCP - General Family Medicine 07/25/22 documented as of this encounter
--- OUTSIDE RECORDS SUMMARY | 2024-06-17 22:19 | XMS_ITS | Encounter Summary ---
Author Organization [facility] Address [facility] [place] [address] Care Team Providers Care Photoflash Powder Mixer Name Role Phone Bin Bowman MD Primary Care Provider Reason for Visit * Reason Onset Date Comments Medication Refill 04/24/2022 Encounter Details Date Type Department Care Team (Late st Contact Info) Description 04/24/2022 Refill Cardiology at [address] [address] Jag Lopez PA [facility] [place] [address] Medication Refill Social History Tobacco Use Types [...] encounter Miscellaneous Notes * Telephone Encounter - Karen Erickson RN - 04/24/2022 8:06 AM EDT [...] AM EDT Office Visit Cardiology at [address] [place] [address] Mo Horne MD [facility] [place] [address] 09/21/2024 10:[address] [place] [phone] Rachel Carrasco MD [facility] [place] [address] 09/21/2024 11:00 AM EST [place] [address] Rachel Carrasco MD [facility] [address] documented as of this encounter Visit Diagnoses Diagnosis Atrial flutter, unspecified type- Primary documented in this encounter Care Teams Photoflash Powder Mixer Relationship Specialty Start Date End Date Bin Bowman MD [address] [place] [address] PCP - General General Internal Medicine 04/21/1707/11 documented as of this encounter
--- OUTSIDE RECORDS SUMMARY | 2024-06-17 22:19 | XMS_ITS | Encounter Summary ---
Author Organization [facility] [place] [address] Care Team Providers Care Insights Manager Name Role Phone Bin Bowman MD Primary Care Provider Reason for Referral * Diagnostic Test (Routine) - Closed Specialty Diagnoses / Procedures Referred By Contac t Referred To Contact Cardiology Diagnoses PAF (paroxysmal atrial fibrillation) SVT (supraventricular tachycardia) Atrial flutter, unspecified type Procedures Ziopatch 48 Hrs-15 Days Fadi Escobar MD [facility] [address] [facility] [place] [address] Referral ID Status Reason Start Date Expiration Date V isits Requested Visits Authorized [id number] Closed Specialty Service Requested 09/20/2021 12/21/2021 1 1 Reason for Visit * Diagnostic Test (Routine) - Closed Specialty Diagnoses / Procedures Referred By Contac t Referred To Contact Cardiology Diagnoses PAF (paroxysmal atrial fibrillation) SVT (supraventricular tachycardia) Atrial flutter, unspecified type Procedures Ziopatch 48 Hrs-15 Days Fadi Escobar MD [facility] [address] [facility] [place] [address] Referral ID Status Reason Start Date Expiration Date V isits Requested Visits Authorized [id number] Closed Specialty Service Requested 09/20/2021 12/21/2021 1 1 Encounter Details Date Type Department Care Team (Latest Contact Info) Description 09/20/2021 6:58 AM EST - 09/20/2021 11:59 PM EST Hospital Encounter Non-Invasive [place] [address] Fadi Escobar MD [facility] [place] [address] PAF (paroxysmal atrial fibrillation); SVT (supraventricular tachycardia); [...] AM EDT Office Visit Cardiology at [address] [address] Mo Horne MD [facility] [place] [address] 09/21/2024 10:[address] [place] [phone] Rachel Carrasco MD [facility] [place] [address] 09/21/2024 11:00 AM EST Office [place] [address] Rachel Carrasco MD [facility] [place] [address] documented as of this encounter Procedures Procedure Name Priority Date/Time Associated Diagnosis Comments ZIOPATCH 48 HRS-15 DAYS Routine 09/20/2021 7:00 AM EST PAF (paroxysmal atrial fibrillation) SVT (supraventricular tachycardia) Atrial flutter, unspecified type documented in this encounter Results * Ziopatch 48 Hrs-15 Days (09/20/2021 7:00 AM EST) Anatomical Region Laterality Modality Other Narrative 10/24/2021 8:50 AM EST [facility] ? Zio Patch? Ambulatory Cardiac Event [...] type documented in this encounter Care Teams Insights Manager Relationship Specialty Start Date End Date Bin Bowman MD [address] [place] [address] PCP - General General Internal Medicine 04/21/1707/11 documented as of this encounter
--- OUTSIDE RECORDS SUMMARY | 2024-06-17 22:19 | XMS_ITS | Encounter Summary ---
[place] [address] Care Team Providers Care Fruit Rancher Name Role Phone Amira Hooks Primary Care Provider Reason for Visit * Consultation (Routine) - Closed Specialty Diagnoses / Procedures Referred By Zeyad mishra Referred To Contact General Surgery Diagnoses Morbid obesity Blood glucose elevated Hypertension, unspecified type Other sleep apnea Amira Hooks PA [address] [place] [address] [facility] Gen Surgery [address] [place] [phone] Referral ID Status Reason Start Date Expiration Date V isits Requested Visits Authorized [id number] Closed Consult, Test & Treat PCP Updated and/or Approved 12/09/2022 12/09/2023 6 6 Encounter Details Date Type Department Care Team (Late st Contact Info) Description 12/30/2022 4:00 PM EST Notes [place] [address] Social History Tobacco Use Types [...] as of this encounter Progress Notes * Luciano Peyton Chaves - 12/30/2022 4:00 PM EST PATIENT ATTENDED THE [facility] INTRO TO BARIATRIC ON 12/30/2022 FOR THE [facility] documented in this encounter Plan of Treatment Upcoming Encounters Date Type Department Care Team (Late st Contact Info) Description 06/23/2024 10:00 AM EDT Office Visit Cardiology at [address] [place] [address] Mo Horne MD [facility] [place] [address] 09/21/2024 10:[address] [place] [address] Rachel Carrasco MD [facility] [place] [address] 09/21/2024 11:00 AM EST Office [place] [address] Rachel Carrasco MD [facility] [address] Scheduled Referrals Name Type Priority Associated Diagnoses Orde r Schedule Referral to Bariatric Surgery Program Outpatient Referral Routine Morbid obesity Blood glucose elevated Hypertension, unspecified type Other sleep apnea Ordered: 12/09/2022 documented as of this encounter Visit Diagnoses Not on filedocumented in this encounter Care Teams Fruit Rancher Relationship Specialty Start Date End Date Amira Hooks PA [address] [place] [address] PCP - General Family Medicine 07/25/22 documented as of this encounter
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
--- OUTSIDE RECORDS SUMMARY | 2024-06-17 22:19 | XMS_ITS | Encounter Summary ---
Author Organization [facility] Address [facility] [place] [address] Care Team Providers Care Steel Handler Name Role Phone Bin Bowman MD Primary Care Provider Reason for Visit * Reason Onset Date Comments Medication Change/management 04/24/2022 Danielle liset Encounter Details Date Type Department Care Team (Late st Contact Info) Description 04/24/2022 Telephone Cardiology at [address] [address] Fadi Escobar MD [facility] [place] [address] Medication Change/management (Eliquis) Social History Tobacco Use [...] AM EDT Office Visit Cardiology at [address] [place] [address] Mo Horne MD [facility] [place] [address] 09/21/2024 10:[address] [place] [address] Rachel Carrasco MD [facility] [place] [address] 09/21/2024 11:00 AM EST Office Visit [place] [address] Rachel Carrasco MD [facility] [place] [address] documented as of this encounter Visit Diagnoses Not on filedocumented in this encounter Care Teams Steel Handler Relationship Specialty Start Date End Date Bin Bowman MD [address] [place] [address] PCP - General General Internal Medicine 04/21/1707/11 documented as of this encounter
--- OUTSIDE RECORDS SUMMARY | 2024-06-17 22:19 | XMS_ITS | Encounter Summary ---
Author Organization [facility] Address [facility] [place] [address] Care Team Providers Care Soda Maker Name Role Phone Bin Bowman MD Primary Care Provider Reason for Visit * Reason Comments Medication Refill Encounter Details Date Type Department Care Team (Late st Contact Info) Description 11/06/2021 Refill Cardiology at [address] [address] Fadi Escobar MD [facility] [place] [address] Medication Refill Social History Tobacco Use Types [...] reduced to 200 mg daily as of czgxg-mg-cdo June. He reports having felt a total [...] prn F/U appt 12/05/2021 Dunia Canales DNP consulting practice manager Clinic at [place] [phone] documented in this encounter Plan of Treatment Upcoming Encounters Date Type Department Care Team (Late st Contact Info) Description 06/23/2024 10:00 AM EDT Office Visit Cardiology at [address] [phone] Mo Horne MD [facility] [place] [address] 09/21/2024 10:[address] Scan at [place] [phone] Rachel Carrasco MD [facility] [place] [address] 09/21/2024 11:00 AM EST Office Visit Urology at [place] [phone] Rachel Carrasco MD [facility] [place] [address] documented as of this encounter Visit Diagnoses Diagnosis Atrial arrhythmia Cardiac dysrhythmia, unspecified documented in this encounter Care Teams Soda Maker Relationship Specialty Start Date End Date Bin Bowman MD [address] [address] PCP - General General Internal Medicine 04/21/1707/11 documented as of this encounter
--- OUTSIDE RECORDS SUMMARY | 2024-06-17 22:19 | XMS_ITS | Encounter Summary ---
Author Organization [facility] [place] [address] Care Team Providers Care Welding Systems And Equipment Repairer Name Role Phone Amira Hooks Primary Care Provider Encounter Details Date Type Department Care Team (Late Contact Info) Description 08/07/2022 External Results Weight and Wellness at [facility] [address] [place] [address] Ariella Hansen, RN Social History Tobacco Use [...] AM EDT Office Visit Cardiology at [address] [phone] Mo Horne MD [facility] [place] [address] 09/21/2024 10:[address] [place] [phone] Rachel Carrasco MD [facility] [place] [address] 09/21/2024 11:00 AM EST Office Visit Urology at [facility] [place] [phone] Rachel Carrasco MD [facility] [place] [address] documented as of this encounter Procedures Procedure Name Priority Date/Time Associated Diagnosis Comments [facility] EXTERNAL LABS 2 Routine 12/26/2021 documented in this encounter Results * [facility] Labs 2 - External (12/26/2021) Hemoglobin A1c 5.3 Blood Urea Nitrogen 14 Creatinine 1.2 Aspartate Aminotransferase 25 Alanine Aminotransferase 44 Thyroid Stimulating Hormone 2.74 12/26/2021 Historical Provider EXTERNAL [facility] documented in this encounter Visit Diagnoses Not on filedocumented in this encounter Care Teams Welding Systems And Equipment Repairer Relationship Specialty Start Date End Date Amira Hooks PA [address] [address] PCP - General Family Medicine 07/25/22 documented as of this encounter
--- OUTSIDE RECORDS SUMMARY | 2024-06-17 22:19 | XMS_ITS | Encounter Summary ---
Author Organization [facility] Address [facility] [place] [address] Care Team Providers Care Sand Conditioner Name Role Phone Bin Bowman MD Primary Care Provider [phone] Reason for Visit * Reason Onset Date Comments Medication Refill 04/06/2022 Encounter Details Date Type Department Care Team (Late st Contact Info) Description 04/06/2022 Refill Cardiology at [address] [phone] Stephany Cardenas MD [facility] [place] [address] Medication Refill Social History Tobacco Use Types [...] AM EDT Office Visit Cardiology at [address] [address] Mo Horne MD [facility] [place] [address] 09/21/2024 10:[address] [place] [phone] Rachel Carrasco MD [facility] [place] [address] 09/21/2024 11:00 AM EST Office [place] [phone] Rachel Carrasco MD [facility] [place] [address] documented as of this encounter Visit Diagnoses Not on filedocumented in this encounter Care Teams Sand Conditioner Relationship Specialty Start Date End Date Bin Bowman MD [address] [place] [address] PCP - General General Internal Medicine 04/21/1707/11 documented as of this encounter
--- OUTSIDE RECORDS SUMMARY | 2024-06-17 22:19 | XMS_ITS | Encounter Summary ---
Author Organization [facility] Address [facility] [place] [address] Care Team Providers Care Drafter Assistant Name Role Phone Bin Bowman MD Primary Care Provider Reason for Visit * Reason Onset Date Comments Medication Refill 03/22/2022 Encounter Details Date Type Department Care Team (Late st Contact Info) Description 03/22/2022 Refill Cardiology at [address] [phone] Fadi Escobar MD [facility] [place] [address] Medication Refill Social History Tobacco Use Types [...] AM EDT Office Visit Cardiology at [address] [address] Mo Horne MD [facility] [place] [address] 09/21/2024 10:[address] [place] [address] Rachel Carrasco MD [facility] [place] [address] 09/21/2024 11:00 AM EST Office [place] [phone] Rachel Carrasco MD [facility] [place] [address] documented as of this encounter Visit Diagnoses Diagnosis Atrial arrhythmia Cardiac dysrhythmia, unspecified documented in this encounter Care Teams Drafter Assistant Relationship Specialty Start Date End Date Bin Bowman MD [address] [place] [address] PCP - General General Internal Medicine 04/21/1707/11 documented as of this encounter
--- OUTSIDE RECORDS SUMMARY | 2024-06-17 22:19 | XMS_ITS | Encounter Summary ---
Author Organization [facility] [place] [address] Care Team Providers Care Heater Operator Helper Name Role Phone Bin Bowman MD Primary Care Provider Reason for Visit * Reason Comments Medication Refill Encounter Details Date Type Department Care Team (Late st Contact Info) Description 06/05/2022 Refill Cardiology at [address] [address] Fadi Escobar MD [facility] [place] [address] Medication Refill Social History Tobacco Use Types [...] AM EDT Office Visit Cardiology at [address] [address] Mo Horne MD [facility] [place] [address] 09/21/2024 10:[address] [place] [address] Rachel Carrasco MD [facility] [place] [address] 09/21/2024 11:00 AM EST Office [place] [phone] Rachel Carrasco MD [facility] [place] [address] documented as of this encounter Visit Diagnoses Diagnosis Essential hypertension Unspecified essential hypertension documented in this encounter Care Teams Heater Operator Helper Relationship Specialty Start Date End Date Bin Bowman MD [address] [place] [address] PCP - General General Internal Medicine 04/21/1707/11 documented as of this encounter
--- OUTSIDE RECORDS SUMMARY | 2024-06-17 22:19 | XMS_ITS | Encounter Summary ---
Author Organization [facility] Address [facility] [place] [address] Care Team Providers Care Environmental Property Assessor Name Role Phone Bin Bowman MD Primary Care Provider [phone] Reason for Referral * Consultation (Routine) - Closed Specialty Diagnoses / Procedures Referred By Zeyad mishra Referred To Contact Weight and Wellness Diagnoses Class 3 severe obesity with body mass index (BMI) greater than or equal to 70 in adult, unspecified obesity type, unspecified whether serious comorbidity present Fadi Escobar MD [facility] [place] [address] [facility] [address] [place] [address] Referral ID Status Reason Start Date Expiration Date V isits Requested Visits Authorized [id number] Closed Consult, Test & Treat 12/27/2021 12/27/2022 1 1 Encounter Details Date Type Department Care Team (Late st Contact Info) Description 12/10/2021 Orders Only Cardiology at [address] [address] Fadi Escobar MD [facility] [place] [address] Class 3 severe obesity with body mass [...] AM EDT Office Visit Cardiology at [address] [address] Mo Horne MD [facility] [place] [address] 09/21/2024 10:[address] [place] [place] [phone] Rachel Carrasco MD [facility] [address] 09/21/2024 11:00 AM EST [place] [address] Rachel Carrasco MD [facility] [address] Scheduled Referrals Name Type Priority Associated Diagnoses [...] present documented in this encounter Care Teams Environmental Property Assessor Relationship Specialty Start Date End Date Bin Bowman MD [address] [address] PCP - General General Internal Medicine 04/21/1707/11 documented as of this encounter
--- OUTSIDE RECORDS SUMMARY | 2024-06-17 22:19 | XMS_ITS | Encounter Summary ---
[place] [address] Care Team Providers Care Puttier Name Role Phone Amira Hooks Primary Care Provider Encounter Details Date Type Department Care Team (Late st Contact Info) Description 01/07/2023 Telephone Psychiatry and Behavioral [place] [address] Lori Dean Social History Tobacco Use Types [...] AM EDT Office Visit Cardiology at [address] [phone] Mo Horne MD [facility] [place] [address] 09/21/2024 10:[address] [place] [address] Rachel Carrasco MD [facility] [place] [address] 09/21/2024 11:00 AM EST Office Visit [place] [phone] Rachel Carrasco MD [facility] [place] [address] documented as of this encounter Visit Diagnoses Not on filedocumented in this encounter Care Teams Puttier Relationship Specialty Start Date End Date Amira Hooks PA [address] [place] [address] PCP - General Family Medicine 07/25/22 documented as of this encounter
--- OUTSIDE RECORDS SUMMARY | 2024-06-17 22:19 | XMS_ITS | Encounter Summary ---
Author Organization [facility] Address [facility] [place] [address] Care Team Providers Care Domestic Cleaner Name Role Phone Amira Hooks Primary Care Provider Reason for Visit * Reason Comments Atrial Fibrillation Encounter Details Date Type Department Care Team (Late st Contact Info) Description 12/18/2022 3:00 PM EST Office Visit Cardiology at [address] [phone] Mo Horne MD [facility] [place] [address] Paroxysmal atrial fibrillation Social History Tobacco Use [...] Follow Up Patient ID Rolo Aguilar [id number] Rolo Aguilra is following up in EP clinic Chief [...] tachycardia) Added automatically from request for surgery [id number] ??? PAF (paroxysmal atrial fibrillation) Added automatically from request for surgery [id number] ??? Flutter-fibrillation ??? H/O cardiac radiofrequency ablation ??? Coronary disease ?? 2017: STEMI. PCI of OM1. EF 60%. Many ER visits to COUNTS INCLUDE 234 BEDS AT [facility] after this. ??? Heart palpitations [...] 6 months MO HORNE MD Cardiac Electrophysiology [facility] [place] 35 minutes of this 45 minute encounter [...] AM EDT Office Visit Cardiology at [address] [address] Mo Horne MD [facility] [place] [address] 09/21/2024 10:[address] [place] [place] [phone] Rachel Carrasco MD [facility] [place] [address] 09/21/2024 11:00 AM EST [place] [phone] Rachel Carrasco MD [facility] [place] [address] documented as of this encounter Visit Diagnoses Diagnosis Paroxysmal atrial fibrillation Atrial fibrillation documented in this encounter Care Teams Domestic Cleaner Relationship Specialty Start Date End Date Amira Hooks PA [address] [place] [address] PCP - General Family Medicine 07/25/22 documented as of this encounter
--- OUTSIDE RECORDS SUMMARY | 2024-06-17 22:19 | XMS_ITS | Encounter Summary ---
Author Organization [facility] [place] [address] Care Team Providers Care Aircraft Skin Burnisher Name Role Phone Amira Hooks Primary Care [...] AM EDT Office Visit Cardiology at [address] [address] Mo Horne MD [facility] [place] [address] 09/21/2024 10:[address] [place] [address] Rachel Carrasco MD [facility] [place] [address] 09/21/2024 11:00 AM EST Office [place] [address] Rachel Carrasco MD [facility] [place] [address] documented as of this encounter Visit Diagnoses Not on filedocumented in this encounter Care Teams Aircraft Skin Burnisher Relationship Specialty Start Date End Date Amira Hooks PA [address] [place] [address] PCP - General Family Medicine 07/25/22 documented as of this encounter
--- OUTSIDE RECORDS SUMMARY | 2024-06-17 22:19 | XMS_ITS | Encounter Summary ---
Author Organization [facility] Address [facility] [place] [address] Care Team Providers Care Forestry Supervisor Name Role Phone Amira Hooks Primary Care Provider [phone] Reason for Visit * Consultation (Routine) - Closed Specialty Diagnoses / Procedures Referred By Zeyad t Referred To Contact Weight and Wellness Diagnoses Class 3 severe obesity with body mass index (BMI) greater than or equal to 70 in adult, unspecified obesity type, unspecified whether serious comorbidity present Fadi Escobar MD [facility] [place] [address] [facility] [address] [place] [phone] Referral ID Status Reason Start Date Expiration Date V isits Requested Visits Authorized [id number] Closed Consult, Test & Treat 12/27/2021 12/27/2022 1 1 Encounter Details Date Type Department Care Team (Late st Contact Info) Description 08/07/2022 10:00 AM EDT TH Visit (TeleHealth) Weight and Wellness at [address] [phone] Linh Carrillo MD [facility] [address] MAD[place] [address] PATIENT NOT SEEN Social History Tobacco Use [...] AM EDT Office Visit Cardiology at [address] [place] [address] Mo Horne MD [facility] [place] [address] 09/21/2024 10:[address] [place] [place] [phone] Rachel Carrasco MD [facility] [place] [address] 09/21/2024 11:00 AM EST [place] [phone] Rachel Carrasco MD [facility] [place] [address] Scheduled Referrals Name Type Priority Associated Diagnoses [...] SEEN documented in this encounter Care Teams Forestry Supervisor Relationship Specialty Start Date End Date Amira Hooks PA [address] [place] [address] PCP - General Family Medicine 07/25/22 documented as of this encounter
--- OUTSIDE RECORDS SUMMARY | 2024-06-17 22:19 | XMS_ITS | Encounter Summary ---
Author Organization [facility] Address [facility] [place] [address] Care Team Providers Care Gage Maker Name Role Phone Bin Bowman MD Primary Care Provider Reason for Visit * Reason Comments Medication Refill Encounter Details Date Type Department Care Team (Late st Contact Info) Description 04/27/2021 Refill Cardiology at [address] [address] Juan Antonio Mathew PA [facility] [place] [address] Medication Refill Social History Tobacco Use Types [...] AM EDT Received prescription refill request for [facility], [facility] [address] Refill request for 30 days with 1 refills Reviewed Epic record and last office note from Dr. Escobar dated 03/19/21 Recommendations: 1) Please see comments about Victoza above 2) Discontinue colchicine 3) Amiodarone 400 mg daily (to be reduced at a later date to 200 mg daily, and this is not intendedto be a manager long term care therapeutic plan)... monitoring for early signs of amiodarone toxicty remains important: > Renal/hepatic profile and TSH to be obtained in ~2-3 months > Annual ophthalmologic exam > Chest radiograph towards end of year (last image was February 14) > Some of this possibly can be obtained closer to home ([place], [place]) 4) Continue apixaban anticoagulation 5) Follow up ~July, sooner as needed - reconsider reduction amiodarone Refill prepped and forwarded to Provider for authorization FLAVIA Gary documented in this encounter Plan of Treatment Upcoming Encounters Date Type Department Care Team (Late st Contact Info) Description 06/23/2024 10:00 AM EDT Office Visit Cardiology at [address] [place] [address] Mo Horne MD [facility] [place] [address] 09/21/2024 10:[address] [place] [phone] Rachel Carrasco MD [facility] [place] [address] 09/21/2024 11:00 AM EST Office [place] [phone] Rachel Carrasco MD [facility] [place] [address] documented as of this encounter Visit Diagnoses Diagnosis Atrial arrhythmia Cardiac dysrhythmia, unspecified documented in this encounter Care Teams Gage Maker Relationship Specialty Start Date End Date Bin Bowman MD [address] [place] [address] PCP - General General Internal Medicine 04/21/1707/11 documented as of this encounter
--- OUTSIDE RECORDS SUMMARY | 2024-06-17 22:19 | XMS_ITS | Encounter Summary ---
Author Organization [facility] Address [facility] [place] [address] Care Team Providers Care Principal Cyber Engineer Name Role Phone Bin Bowman MD Primary Care Provider Reason for Visit * Reason Comments Medication Refill Eliquis Encounter Details Date Type Department Care Team (Late st Contact Info) Description 07/07/2021 Refill Cardiology at [address] [address] Juan Antonio Mathew PA [facility] [place] [address] Medication Refill (Eliquis) Social History Tobacco Use [...] 10:00 AM EDT Office Visit Cardiology at [address] [place] [address] Mo Horne MD [facility] [place] [address] 09/21/2024 10:[address] [place] [place] [address] Rachel Carrasco MD [facility] [place] [address] 09/21/2024 11:00 AM EST [place] [address] Rachel Carrasco MD [facility] [place] [address] documented as of this encounter Visit Diagnoses Diagnosis Atrial arrhythmia Cardiac dysrhythmia, unspecified documented in this encounter Care Teams Principal Cyber Engineer Relationship Specialty Start Date End Date Bin Bowman MD [address] [place] [address] PCP - General General Internal Medicine 04/21/1707/11 documented as of this encounter
--- OUTSIDE RECORDS SUMMARY | 2024-06-17 22:19 | XMS_ITS | Encounter Summary ---
Author Organization [facility] Address [facility] [place] [address] Care Team Providers Care Director Of Religious Activities Name Role Phone Bin Bowman MD Primary Care Provider Encounter Details Date Type Department Care Team (Late st Contact Info) Description 06/24/2022 10:00 AM EDT Office Visit Cardiology at [address] [address] Fadi Escobar MD [facility] [place] [address] PAF (paroxysmal atrial fibrillation) Social History Tobacco [...] 06/24/2022 10:00 AM EDT Cardiac Electrophysiology Clinic?? [facility]?? June 24, 2022 (last visit December 05, 2021) ? Silk Folder:??Jose Culver MD (has since moved to a new practice elsewhere). Primary Care:??Bin Bowman MD ?? Reason for Visit:??Follow up ?? Backgound: ??Jeff??is a 51??year old gentleman who has had multiple??symptomatic episodes of paroxysmal atrial??tachycardia +/- ??fibrillation (AF), with numerous trips to the local emergency room in [facility] for some of those symptomatic episodes.? He [...] reduced to 200 mg daily as of douyv-ax-oji June. He reported early on??having felt a [...] ??2) ??Coronary artery disease >?July 2017 at [facility]: Non-STEMI (EMMY of OM1) >?LVEF 55-60% >?Aspirin, [...] mg daily, and other noncardiac medications)? 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 Stress??Imaging??(March 14, 2019; [facility]):??Moderate size severely intense fixed inferolateraldefect. LVEF [...] inferior infarction. Electrocardiogram??(April 27, 2020):??Sinus rhythm 82/minute, SC 156 m, QRS duration 102 ms, QTc 416ms, old inferior infarction. Chest Radiograph??(July 18, 2021): No indication of amiodarone toxicity. Blood Tests??(July 19, 2021; [place], [place]): Heaptic enzymes normal (albumin and calcium [...] had his eyes examined (specialty examination in [facility], no records available at this time to [...] [facility] (he is from [place], [place]) - possibly could he have Zio moniotr results by then to review in Cardiac Electrophysiology that day? 3) Follow up discussed (per our discussion, he knows of Dr. Horne - follow up in [place], [place], would be closer to his home. ____ documented in this encounter Plan of Treatment Upcoming Encounters Date Type Department Care Team (Late st Contact Info) Description 06/23/2024 10:00 AM EDT Office Visit Cardiology at [address] [place] [phone] Mo Horne MD [facility] [place] [address] 09/21/2024 10:[address] [place] [address] Rachel Carrasco MD [facility] [place] [address] 09/21/2024 11:00 AM EST Office [place] [address] Rachel Carrasco MD [facility] [place] [address] documented as of this encounter Procedures Procedure [...] (Bezet) 412 ms MUSE SYSTEM Calculated P Iva 29 degrees MUSE SYSTEM Calculated R Iva 41 degrees MUSE SYSTEM Calculated T Iva 27 degrees MUSE SYSTEM INTERPRETATION Normal sinus rhythm Normal ECG When compared with ECG of 25-JUL-2021 08:34, Premature atrial complexes are no longer Present Confirmed by MD Cheng, [facility] ([id number]) on 06/24/2022 11:29:45 AM MUSE SYSTEM 06/24/2022 9:44 AM EDT 06/24/2022 11:29 AM EDT Fadi Escobar MD ECG ORDERABLES MUSE SYSTEM documented in this encounter Visit Diagnoses Diagnosis PAF (paroxysmal atrial fibrillation) Atrial fibrillation documented in this encounter Care Teams Director Of Religious Activities Relationship Specialty Start Date End Date Bin Bowman MD [address] [place] [address] PCP - General General Internal Medicine 04/21/1707/11 documented as of this encounter
--- OUTSIDE RECORDS SUMMARY | 2024-06-17 22:19 | XMS_ITS | Encounter Summary ---
Author Organization [facility] Address [facility] [place] [address] Care Team Providers Care Can Doffer Name Role Phone Bin Bowman MD Primary Care Provider Reason for Referral * Diagnostic Test (Routine) - Closed Specialty Diagnoses / Procedures Referred By Contestuardo t Referred To Contact Cardiology Diagnoses PAF (paroxysmal atrial fibrillation) Procedures Ziopatch 48 Hrs-15 Days Fadi Escobar MD [facility] [place] [address] [facility] [place] [address] Referral ID Status Reason Start Date Expiration Date V isits Requested Visits Authorized [id number] Closed Specialty Service Requested 12/27/2021 12/27/2022 1 1 Encounter Details Date Type Department Care Team (Late st Contact Info) Description 12/10/2021 Orders Only Cardiology at [address] [address] Fadi Escobar MD [facility] [place] [address] PAF (paroxysmal atrial fibrillation) Social [...] AM EDT Office Visit Cardiology at [address] [place] [address] Mo Horne MD [facility] [place] [address] 09/21/2024 10:[address] [place] [place] [phone] Rachel Carrasco MD [facility] [place] [address] 09/21/2024 11:00 AM EST [place] [phone] Rachel Carrasco MD [facility] [place] [address] documented as of this encounter Results * Ziopatch 48 Hrs-15 Days (07/02/2022 8:16 AM EDT) Anatomical Region Laterality Modality Other Narrative 07/26/2022 5:16 PM EDT [facility] ? Zio Patch? Ambulatory Cardiac Event [...] (Bezet) 412 ms MUSE SYSTEM Calculated P [place] 29 degrees MUSE SYSTEM Calculated R [place] 41 degrees MUSE SYSTEM Calculated T [place] 27 degrees MUSE SYSTEM INTERPRETATION Normal sinus rhythm Normal ECG When compared with ECG of 25-JUL-2021 08:34, Premature atrial complexes are no longer Present Confirmed by MD Cheng, Jose ([id number]) on 06/24/2022 11:29:45 AM MUSE SYSTEM 06/24/2022 9:44 AM EDT 06/24/2022 11:29 AM EDT Fadi Escobar MD ECG ORDERABLES MUSE SYSTEM documented in this encounter Visit Diagnoses Diagnosis PAF (paroxysmal atrial fibrillation) Atrial fibrillation PAF (paroxysmal atrial fibrillation) Atrial fibrillation documented in this encounter Care Teams Can Doffer Relationship Specialty Start Date End Date Bin Bowman MD [address] [place] [address] PCP - General General Internal Medicine 04/21/1707/11 documented as of this encounter
--- OUTSIDE RECORDS SUMMARY | 2024-06-17 22:19 | XMS_ITS | Encounter Summary ---
[place] [address] Care Team Providers Care Warehouse Receiving Clerk Name Role Phone Amira Hooks Primary Care Provider Encounter Details Date Type Department Care Team (Late Contact Info) Description 12/24/2022 Telephone Psychiatry [place] [address] Twyla Mayfield Social History Tobacco Use Types [...] is available to take a call today. -Twyla documented in this encounter Plan of Treatment Upcoming Encounters Date Type Department Care Team (Late st Contact Info) Description 06/23/2024 10:00 AM EDT Office Visit Cardiology at [address] [place] [address] Mo Horne MD [facility] [place] [address] 09/21/2024 10:[address] [place] [place] [address] Rachel Carrasco MD [facility] [place] [address] 09/21/2024 11:00 AM [place] [phone] Rachel Carrasco MD [facility] [place] [address] documented as of this encounter Visit Diagnoses Not on filedocumented in this encounter Care Teams Warehouse Receiving Clerk Relationship Specialty Start Date End Date Amira Hooks PA [address] [place] [id number] PCP - General Family Medicine 07/25/22 documented as of this encounter
--- OUTSIDE RECORDS SUMMARY | 2024-06-17 22:19 | XMS_ITS | Encounter Summary ---
Author Organization [facility] Address [facility] [place] [address] Care Team Providers Care Supervisor Gelatin Plant Name Role Phone Bin Bowman MD Primary Care Provider [phone] Reason for Referral * Diagnostic Test (Routine) - Closed Specialty Diagnoses / Procedures Referred By Contac t Referred To Contact Cardiology Diagnoses PAF (paroxysmal atrial fibrillation) Procedures Ziopatch 48 Hrs-15 Days Fadi Escobar MD [facility] [place] [address] [facility] [place] [address] Referral ID Status Reason Start Date Expiration Date V isits Requested Visits Authorized [id number] Closed Specialty Service Requested 12/27/2021 12/27/2022 1 1 Reason for Visit * Diagnostic Test (Routine) - Closed Specialty Diagnoses / Procedures Referred By Contac t Referred To Contact Cardiology Diagnoses PAF (paroxysmal atrial fibrillation) Procedures Ziopatch 48 Hrs-15 Days Fadi Escobar MD [facility] [place] [address] [facility] [place] [address] Referral ID Status Reason Start Date Expiration Date V isits Requested Visits Authorized [id number] Closed Specialty Service Requested 12/27/2021 12/27/2022 1 1 Encounter Details Date Type Department Care Team (Latest Contact Info) Description 07/02/2022 8:14 AM EDT - 07/02/2022 11:59 PM EDT Hospital Encounter Non-Invasive Cardiology Lab [facility] [place] [address] Fadi Escobar MD [facility] [place] [address] PAF (paroxysmal atrial fibrillation) Discharge Disposition: Home [...] AM EDT Office Visit Cardiology at [address] [address] Mo Horne MD [facility] [place] [address] 09/21/2024 10:[address] [place] [place] [address] Rachel Carrasco MD [facility] [place] [address] 09/21/2024 11:00 AM EST [place] [address] Rachel Carrasco MD [facility] [place] [address] documented as of this encounter Procedures Procedure Name Priority Date/Time Associated Diagnosis Comments ZIOPATCH 48 HRS-15 DAYS Routine 07/02/2022 8:16 AM EDT PAF (paroxysmal atrial fibrillation) documented in this encounter Results * Ziopatch 48 Hrs-15 Days (07/02/2022 8:16 AM EDT) Anatomical Region Laterality Modality Other Narrative 07/26/2022 5:16 PM EDT [facility] ? Zio Patch? Ambulatory Cardiac Event [...] fibrillation documented in this encounter Care Teams Supervisor Gelatin Plant Relationship Specialty Start Date End Date Bin Bowman MD [address] [address] PCP - General General Internal Medicine 04/21/1707/11 documented as of this encounter
--- OUTSIDE RECORDS SUMMARY | 2024-06-17 22:19 | XMS_ITS | Encounter Summary ---
Author Organization [facility] Address [facility] [place] [address] Care Team Providers Care Director Of Respiratory Therapy Name Role Phone Amira Hooks Primary Care Provider Reason for Visit * Psychiatric (Routine) - Closed Specialty Diagnoses / Procedures Referred By Contac t Referred To Contact Psychiatry Diagnoses Bipolar affective disorder, remission status unspecified Panic disorder Depression with anxiety Coty Barr APRN [address] [place] [address] Bin Hughes, PhD [facility] [place] [address] Referral ID Status Reason Start Date Expiration Date V isits Requested Visits Authorized [id number] Closed Consult, Test & Treat PCP Updated and/or Approved 07/25/2022 07/25/2023 6 6 Encounter Details Date Type Department Care Team (Late st Contact Info) Description 12/16/2022 1:00 PM EST Office Visit Psychiatry and [place] [phone] Joana Mabry, PhD [facility] [address] Post-traumatic stress disorder, unspecified Social History Tobacco [...] 1:00 PM EST DIAGNOSTIC INTERVIEW CPT Code 86266 Referral Source: Coty Barr APRN Location: Office [...] History: 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 He reported attendingschool until his senior year of high school and reports that his favorite subjects in school were generally creative/artistically focused classes. Family and Peer Relationships: Mr. Aguilar reported having a supportive spouse. Service: Denied Lutheran Background: Mr. Aguilar reported that he considers himself spiritual, but not oriental orthodox. Medical history: Past Medical History: Diagnosis Date [...] rate and normal rhythm Language: fluent in russian Mood: euthymic Affect: mood-congruent Thought Process: linear [...] the time Pain impact Not at all [place] calm Most of the time Lot of energy Some of the time [place] downhearted Some of the time Social Impact [...] / alert Yes Numb / detached No [place] guilty or blamed yourself or others No [...] treatment in the Anxiety Disorders Service at [facility]. Does the clinician agree with the recommendation: Yes (see initial plan, above) Does the patient agree with the recommendation: Yes (see initial plan, above) Patient Instruction/Education Provided: Verbal Patient understands the plan? Yes We discussed that I am available via [employer], but that I do not check this daily, and should not be used in case of emergency. We have reviewed crisis numbers to call in case of emergency. We discussed limits to confidentiality, which include breaking confidentiality in the case of concern for imminent danger to self, someone else (including child and elder abuse) or if records are subpoenaed by a digital design engineer. We also discussed that notes can be read by other clinicians and staff involved in the patient's care. For mental health emergencies, Call 988 from anywhere in the [facility]. State specific information for [place] and [place] crisis services are as follows and should be used to access local resources: [facility] Crises Services [facility] Crisis Line text or call Visit www.Axiata for further information [place] Call your local community crisis line at: [place]: Counseling Service [facility] [phone] [place]: [facility] Services [phone] [place]: [facility] [phone] [place]: [facility] [phone] [place]: [facility] [phone] [place]: [facility] Counseling and Support [phone] [place]: [facility] [phone] on weekdays 8AM-4:30PM and [phone] on nights and weekends [place]: [facility] [place]: [facility] [phone] [place]: [facility] [phone] [place]: [facility] MH Services, [place]: [facility] [place]: HCRS or Text [place] to 504742 For further information for [place] residents: https://[email or web address] clinic/services/emergency-services/gms-jsa-cjlz National Suicide Prevention Hotline: For patients cared for in the Department of Psychiatry, you can reach your mental health clinician at [phone]. Joana Mabry, PhD documented in this encounter Plan of Treatment Upcoming Encounters Date Type Department Care Team (Late st Contact Info) Description 06/23/2024 10:00 AM EDT Office Visit Cardiology at [address] [place] [address] Mo Horne MD [facility] [place] [address] 09/21/2024 10:[address] [place] [phone] Rachel Carrasco MD [facility] [place] [address] 09/21/2024 11:00 AM EST Office Visit [place] [address] Rachel Carrasco MD [facility] [place] [address] Scheduled Referrals Name Type Priority Associated Diagnoses Order Schedule Referral to Psychiatry Outpatient Referral Routine Bipolar affective disorder, remission status unspecified Panic disorder Depression with anxiety Ordered: 07/25/2022 documented as of this encounter Visit Diagnoses Diagnosis Post-traumatic stress disorder, unspecified documented in this encounter Care Teams Director Of Respiratory Therapy Relationship Specialty Start Date End Date Amira Hooks PA [address] [address] PCP - General Family Medicine 07/25/22 documented as of this encounter
--- OUTSIDE RECORDS SUMMARY | 2024-06-17 22:20 | XMS_ITS | Encounter Summary ---
Author Organization [facility] [place] [address] Care Team Providers Care Rehabilitation Psychologist Name Role Phone Bin Bowman MD Primary Care Provider Reason for Visit * Reason Onset Date Comments Diarrhea 02/27/2021 Encounter Details Date Type Department Care Team (Late st Contact Info) Description 02/27/2021 Telephone Cardiology at [address] [phone] Lennie Garcia RN Diarrhea Social History Tobacco [...] AM EDT Office Visit Cardiology at [address] [place] [address] Mo Horne MD [facility] [address] 09/21/2024 10:[address] [place] [place] [address] Rachel Carrasco MD [facility] [place] [address] 09/21/2024 11:00 AM EST [place] [phone] Rachel Carrasco MD [facility] [place] [address] documented as of this encounter Visit Diagnoses Not on filedocumented in this encounter Care Teams Rehabilitation Psychologist Relationship Specialty Start Date End Date Bin Bowman MD [address] [place] [address] PCP - General General Internal Medicine 04/21/1707/11 documented as of this encounter
--- OUTSIDE RECORDS SUMMARY | 2024-06-17 22:20 | XMS_ITS | Encounter Summary ---
Author Organization [facility] Address [facility] [place] [address] Care Team Providers Care Pai Gow Dealer Name Role Phone Bin Bowman MD Primary Care Provider Encounter Details Date Type Department Care Team (Late st Contact Info) Description 02/12/2021 External [place] [phone] Social History Tobacco Use Types Packs/Day Years [...] AM EDT Office Visit Cardiology at [address] [place] [address] Mo Horne MD [facility] [place] [address] 09/21/2024 10:[address] [place] [place] [address] Rachel Carrasco MD [facility] [place], [place] [address] 09/21/2024 11:00 AM EST Office Visit Urology at [facility] [place] [address] Rachel Carrasco MD [facility] [place] [address] documented as of this encounter Procedures Procedure Name Priority Date/Time Associated Diagnosis Comments ECG SCAN Routine 02/12/2021 ECG SCAN Routine 02/12/2021 documented in this encounter Results * Scan Doc: ECG (02/12/2021) Historical Provider MD MEDIA MGR SCAN EX T ORDR/RSLT * Scan Doc: ECG (02/12/2021) Historical Provider MD MEDIA MGR SCAN EX T ORDR/RSLT documented in this encounter Visit Diagnoses Not on filedocumented in this encounter Care Teams Pai Gow Dealer Relationship Specialty Start Date End Date Bin Bowman MD [address] [place] [address] PCP - General General Internal Medicine 04/21/1707/11 documented as of this encounter
--- OUTSIDE RECORDS SUMMARY | 2024-06-17 22:20 | XMS_ITS | Encounter Summary ---
Author Organization [facility] Address [facility] [place] [address] Care Team Providers Care Product Marketing Engineer Name Role Phone Bin Bowman MD Primary Care Provider [phone] Reason for Visit * Reason Onset Date Comments Outside Provider Call 02/12/2021 Encounter Details Date Type Department Care Team (Late st Contact Info) Description 02/12/2021 Telephone Cardiology at [address] [address] Fadi Escobar MD [facility] [place] [address] Outside Provider Call Social History Tobacco Use [...] Dr. Escobar, Please call Dr. Culver at [facility] as soon as available. [phone] Thank you Shruthi * Telephone Encounter - Jami Gurrola Meche - 02/12/2021 11:[address] Culver office called again. They stated it was urgent to consult with Dr. Escobar on this pt. Heis in the ED at [facility] and has been cardioverted once already today. Please call him at [phone] documented in this encounter Plan of Treatment Upcoming Encounters Date Type Department Care Team (Late st Contact Info) Description 06/23/2024 10:00 AM EDT Office Visit Cardiology at [address] [place] [address] Mo Horne MD [facility] [place] [address] 09/21/2024 10:[address] [place] [address] Rachel Carrasco MD [facility] [place] [address] 09/21/2024 11:00 AM EST Office [place] [address] Rachel Carrasco MD [facility] [address] documented as of this encounter Visit Diagnoses Not on filedocumented in this encounter Care Teams Product Marketing Engineer Relationship Specialty Start Date End Date Bin Bowman MD [address] [place] [address] PCP - General General Internal Medicine 04/21/1707/11 documented as of this encounter
--- OUTSIDE RECORDS SUMMARY | 2024-06-17 22:20 | XMS_ITS | Encounter Summary ---
Author Organization [facility] Address [facility] [place] [address] Care Team Providers Care Metal Fabricator Name Role Phone Bin Bowman MD Primary Care Provider [phone] Encounter Details Date Type Department Care Team (Late st Contact Info) Description 02/14/2021 Telephone Cardiology at [address] [address] Fadi Escobar MD [facility] [place] [address] Social History Tobacco Use Types Packs/Day Years [...] AM EDT Office Visit Cardiology at [address] [address] Mo Horne MD [facility] [place] [address] 09/21/2024 10:[address] [place] [place] [address] Rachel Carrasco MD [facility] [place] [address] 09/21/2024 11:00 AM EST [place] [address] Rachel Carrasco MD [facility] [place] [address] documented as of this encounter Visit Diagnoses Not on filedocumented in this encounter Care Teams Metal Fabricator Relationship Specialty Start Date End Date Bin Bowman MD [address] [place] [address] PCP - General General Internal Medicine 04/21/1707/11 documented as of this encounter
--- OUTSIDE RECORDS SUMMARY | 2024-06-17 22:20 | XMS_ITS | Encounter Summary ---
Author Organization [facility] [address] Care Team Providers Care Coal Crusher Operator Name Role Phone Bin Bowman MD Primary Care Provider Encounter Details Date Type Department Care Team (Late st Contact Info) Description 01/24/2021 Telephone Cardiology at [address] [phone] Lennie Garcia, RN Social History Tobacco Use [...] & CXR (new bilat pleural effusions) per [facility] (+) SOB w/ exertion, rattles [...] AM EDT Office Visit Cardiology at [address] [place] [phone] Mo Horne MD [facility] [place] [address] 09/21/2024 10:[address] [place] [place] [phone] Rachel Carrasco MD [facility] [place] [address] 09/21/2024 11:00 AM EST [place] [phone] Rachel Carrasco MD [facility] [place] [address] documented as of this encounter Results * (ABNORMAL) Basic Metabolic Panel (non-fasting) (02/05/2021 2:04 PM EDT) Glucose 115 65 - 199 mg/dL [facility] Comment:Diabetes: >=200 mg/d L plus symptoms Blood Urea Nitrogen 8(L) 10 - 20 mg/dL [facility] Creatinine 0.98 0.80 - 1.50 mg/dL [facility] Sodium 141 135 - 145 mmol/L [facility] Potassium 3.9 3.5 - 5.0 mmol/L [facility] Comment: Please note: ??Patients with WBC >100,000 may have falsely elevated Potassium levels. ??For accurate Potassium quantification in these patients send serum separator tube (gold top) for subsequent determinations. ??Contact the Clinical Chemistry Laboratory if there are any questions. Chloride 103 98 - 107 mmol/L [facility] Carbon Dioxide 28 22 - 31 mmol/L [facility] Anion Gap 10 5 - 15 mmol/L [facility] Calcium 9.6 8.5 - 10.5 mg/dL [facility] Est Glomerular Filtration Rate 89 >=60 mL/min/1. 73 m?? [facility] Comment: This patient? s [...] In Lab Fadi Escobar MD CHEMISTRY ORDERABLES [facility] [place] [address] documented in this encounter Visit Diagnoses Diagnosis Essential hypertension Unspecified essential hypertension High risk medication use Encounter for long-term (current) use of other medications documented in this encounter Care Teams Coal Crusher Operator Relationship Specialty Start Date End Date Bin Bowman MD [address] [place] [address] PCP - General General Internal Medicine 04/21/1707/11 documented as of this encounter
--- OUTSIDE RECORDS SUMMARY | 2024-06-17 22:20 | XMS_ITS | Encounter Summary ---
[facility] [place] [address] Care Team Providers Care Rehab Aid Name Role Phone Bin Bowman MD Primary Care Provider [phone] Reason for Visit * Auth/Cert Specialty Diagnoses / Procedures Referred By Zeyad mishra Referred To Contact Diagnoses SVT (supraventricular tachycardia) [I47.1], PAF (paroxysmal atrial fibrillation) [I48.0] Procedures ELECTROPHYSIOLOGY PROCEDURE TRANSESOPHAGEAL ECHO DURING CATH/EP PROCEDURE Referral ID Status Reason Start Date Expiration Date Visits Re quested Visits Authorized [id number] 1 1 Encounter Details Date Type Department Care Team (Latest Contact Info) Description 01/13/2021 8:10 AM EST - 01/13/2021 11:59 PM EST Hospital Encounter Non-[place] [phone] Discharge Disposition: Home Social History Tobacco Use [...] AM EDT Office Visit Cardiology at [address] [place] [phone] Mo Horne MD [facility] [place] [address] 09/21/2024 10:[address] [place] [address] Rachel Carrasco MD [facility] [place] [address] 09/21/2024 11:00 AM EST Office [place] [phone] Rachel Carrasco MD [facility] [place] [address] documented as of this encounter Procedures Procedure Name Priority Date/Time Associated Diagnosis Comments ECHO COMPLETE Routine 01/13/2021 11:03 AM EST Pericardial effusion documented in this encounter Results * ECHO COMPLETE (01/13/2021 11:03 AM EST) Anatomical Region Laterality Modality Other 01/13/2021 Narrative 01/13/2021 11:38 AM EST Procedure: ?Transthoracic Echocardiogram Patient: ?ISAAC SHERWOOD M ?(Age): 1970(50y) Med Rec#: ? [id number] ?Sex: ?M ? [place] [facility] [place]Ht / Wt: ??168(cm)/198(kg) Pt. Loc: ?Adult Floor ? BSA: ?2.79 Study Date: ?? 01/13/2021 ?Pt. Type: Inpatient Tape: ? Referring: Jose Anand ??([id number]) Reading: Joss De Anda ([id number]) Ball Ender: Shahriar Juan RDALISHA, LENORE Diagnosis: *Pericardial effusion (noninflammatory) (I31.3) *Paroxysmal [...] Vmax ?0.94 ? m/sec ? MV deceleration qyvn021.49 ? msec ? MV A-wave Vmax ?0.66 [...] ? Mid-Inferior ?Normal ? Mid-Inferoseptal ?Normal ? Calvin-Septal ? Normal ? Calvin-Anterior ? Normal ? Calvin-Lateral ?Normal ? Calvin-Inferior ? Normal ? Calvin-Tip ?Normal ? This report has been electronically signed by: Joss De Anda MD ? 01/13/2021 11:37:34 Images reviewed and interpretation verified [facility] Procedure Note Joss De Anda MD - 01/13/2021 Procedure: Transthoracic Echocardiogram Patient: ISAAC Rodney (Age): 1970(50y) Med Rec#: [id number] Sex: M [place] [facility] [place] Ht / Wt: 168(cm)/198(kg) Pt. Loc: Adult Floor BSA: 2.79 Study Date: 01/13/2021 Pt. Type: Inpatient Tape: Referring: Jose Anand ([id number]) Reading: Joss De Anda ([id number]) Ball Ender: Shahriar Juan RDCS, FASE Diagnosis: *Pericardial effusion [...] MV E-wave Vmax 0.94 m/sec MV deceleration sixx284.49 msec MV A-wave Vmax 0.66 m/sec MV [...] Normal Mid-Posterolateral Normal Mid-Inferior Normal Mid-Inferoseptal Normal Calvin-Septal Normal Calvin-Anterior Normal Calvin-Lateral Normal Calvin-Inferior Normal Calvin-Tip Normal This report has been electronically signed by: Joss De Anda MD 01/13/2021 11:37:34 Images reviewed and interpretation verified [facility] Jose Anand MD ECHO ORDERABLES documented in this encounter Visit Diagnoses Not on filedocumented in this encounter Care Teams Rehab Aid Relationship Specialty Start Date End Date Bin Bowman MD [address] [place] [address] PCP - General General Internal Medicine 04/21/1707/11 documented as of this encounter
--- OUTSIDE RECORDS SUMMARY | 2024-06-17 22:20 | XMS_ITS | Encounter Summary ---
Author Organization [facility] Address [facility] [place] [address] Care Team Providers Care Meter Reader Chief Name Role Phone Bin Bowman MD Primary Care Provider Encounter Details Date Type Department Care Team (Late st Contact Info) Description 02/14/2021 Telephone Cardiology at [address] [phone] Mahogany Hong PA [facility] [place] [address] Social History Tobacco Use Types Packs/Day Years [...] PM Referring Provider: Dr. Horne Patient Location: [facility] BED # 19 Past Medical History: Atrial Arrhythmias Presenting Symptoms per OSH: 50 Y O M from [place], who has a history of Atrial Arrhythmias was driven to the ER by his wifebecause he was feeling poorly. He was recently treated with amio and metop and cardioverted at [facility] and flipped back out and is feeling [...] AM EDT Office Visit Cardiology at [address] [place] [phone] Mo Horne MD [facility] [place] [address] 09/21/2024 10:[address] [place] [phone] Rachel Carrasco MD [facility] [address] 09/21/2024 11:00 AM EST Office Visit [place] [phone] Rachel Carrasco MD [facility] [place] [address] documented as of this encounter Visit Diagnoses Not on filedocumented in this encounter Care Teams Meter Reader Chief Relationship Specialty Start Date End Date Bin Bowman MD [address] [place] [address] PCP - General General Internal Medicine 04/21/1707/11 documented as of this encounter
--- OUTSIDE RECORDS SUMMARY | 2024-06-17 22:20 | XMS_ITS | Encounter Summary ---
Author Organization [facility] [place] [address] Care Team Providers Care Supervisor Farm Equipment Maintenance Name Role Phone Bin Bowman MD Primary Care Provider Encounter Details Date Type Department Care Team (Late st Contact Info) Description 01/23/2021 External Results [place] [address] None None Social History Tobacco [...] AM EDT Office Visit Cardiology at [address] [address] Mo Horne MD [facility] [place] [address] 09/21/2024 10:[address] [place] [place] [address] Rachel Carrasco MD [facility] [place] [address] 09/21/2024 11:00 AM EST Office Visit Urology at [facility] [place] [address] Rachel Carrasco MD [facility] [place] [address] documented as of this encounter Procedures Procedure Name Priority Date/Time Associated Diagnosis Comments ECHO SCAN (SCAN) Routine 01/22/2021 documented in this encounter Results * Scan Doc: Echo (01/22/2021) Anatomical Region Laterality Modality Cardiac Other None MEDIA MGR SCAN EXT O RDR/RSLT documented in this encounter Visit Diagnoses Not on filedocumented in this encounter Care Teams Supervisor Farm Equipment Maintenance Relationship Specialty Start Date End Date Bin Bowman MD [address] [place] [address] PCP - General General Internal Medicine 04/21/1707/11 documented as of this encounter
--- OUTSIDE RECORDS SUMMARY | 2024-06-17 22:20 | XMS_ITS | Encounter Summary ---
Author Organization [facility] Address [facility] [place] [address] Care Team Providers Care Sustainability Consultant Name Role Phone Bin Bowman MD Primary Care Provider Reason for Referral * Diagnostic Test (Routine) - Closed Specialty Diagnoses / Procedures Referred By Contac t Referred To Contact Cardiology Diagnoses PAF (paroxysmal atrial fibrillation) Procedures Ziopatch 48 Hrs-15 Days Fadi Escobar MD [facility] [place] [address] [facility] [place] [address] Referral ID Status Reason Start Date Expiration Date V isits Requested Visits Authorized [id number] Closed Specialty Service Requested 02/19/2021 04/21/2021 1 1 Reason for Visit * Diagnostic Test (Routine) - Closed Specialty Diagnoses / Procedures Referred By Contac t Referred To Contact Cardiology Diagnoses PAF (paroxysmal atrial fibrillation) Procedures Ziopatch 48 Hrs-15 Days Fadi Escobar MD [facility] [place] [address] [facility] [place] [address] Referral ID Status Reason Start Date Expiration Date V isits Requested Visits Authorized [id number] Closed Specialty Service Requested 02/19/2021 04/21/2021 1 1 Encounter Details Date Type Department Care Team (Latest Contact Info) Description 02/19/2021 11:23 AM EDT - 02/19/2021 11:59 PM EDT Hospital Encounter Non-Invasive Cardiology Lab [facility] [place] [address] Fadi Escobar MD [facility] [place] [address] PAF (paroxysmal atrial fibrillation) Discharge Disposition: Home [...] AM EDT Office Visit Cardiology at [address] [phone] Mo Horne MD [facility] [place] [address] 09/21/2024 10:[address] [place] [place] [phone] Rachel Carrasco MD [facility] [place] [address] 09/21/2024 11:00 AM EST [place] [phone] Rachel Carrasco MD [facility] [place] [address] documented as of this encounter Procedures Procedure Name Priority Date/Time Associated Diagnosis Comments ZIOPATCH 48 HRS-15 DAYS Routine 02/19/2021 11:27 AM EDT PAF (paroxysmal atrial fibrillation) documented in this encounter Results * Ziopatch 48 Hrs-15 Days (02/19/2021 11:27 AM EDT) Anatomical Region Laterality Modality Other Narrative 03/21/2021 11:24 AM EDT [facility] ? [facility] Patch Ambulatory Cardiac Event [...] apparent significant arrhythmias Judy Tijerina MD [facility] See link to pdf document of the primary data under Scans on Order below. Fadi Escobar MD CARDIAC SERVICES ORD ERABLES documented in this encounter Visit Diagnoses Diagnosis PAF (paroxysmal atrial fibrillation) Atrial fibrillation documented in this encounter Care Teams Sustainability Consultant Relationship Specialty Start Date End Date Bin Bowman MD [address] [place] [address] PCP - General General Internal Medicine 04/21/1707/11 documented as of this encounter
--- OUTSIDE RECORDS SUMMARY | 2024-06-17 22:20 | XMS_ITS | Encounter Summary ---
Author Organization [facility] Address [facility] [place] [address] Care Team Providers Care Editor Producer Name Role Phone Bni Bowman MD Primary Care Provider [phone] Reason for Referral * Diagnostic Test (Routine) - Closed Specialty Diagnoses / Procedures Referred By Contac t Referred To Contact Cardiology Diagnoses PAF (paroxysmal atrial fibrillation) Procedures Ziopatch 48 Hrs-15 Days Fadi Escobar MD [facility] [place] [address] [facility] [place] [address] Referral ID Status Reason Start Date Expiration Date V isits Requested Visits Authorized [id number] Closed Specialty Service Requested 02/19/2021 04/21/2021 1 1 Encounter Details Date Type Department Care Team (Late st Contact Info) Description 01/17/2021 Orders Only Cardiology at [address] [phone] Fadi Escobar MD [facility] [place] [address] PAF (paroxysmal atrial fibrillation) Social History Tobacco [...] AM EDT Office Visit Cardiology at [address] [place] [address] Mo Horne MD [facility] [place] [address] 09/21/2024 10:[address] [place] [place] [phone] Rachel Carrasco MD [facility] [place] [address] 09/21/2024 11:00 AM EST [place] [phone] Rachel Carrasco MD [facility] [place] [address] documented as of this encounter Results * Ziopatch 48 Hrs-15 Days (02/19/2021 11:27 AM EDT) Anatomical Region Laterality Modality Other Narrative 03/21/2021 11:24 AM EDT [facility] ? Zio Patch Ambulatory Cardiac Event [...] apparent significant arrhythmias Judy Tijerina MD [facility] See link to pdf document of the primary data under Scans on Order below. Fadi Escobar MD CARDIAC SERVICES ORD ERABLES documented in this encounter Visit Diagnoses Diagnosis PAF (paroxysmal atrial fibrillation) Atrial fibrillation PAF (paroxysmal atrial fibrillation) Atrial fibrillation documented in this encounter Care Teams Editor Producer Relationship Specialty Start Date End Date Bin Bowman MD [address] [place] [address] PCP - General General Internal Medicine 04/21/1707/11 documented as of this encounter
--- OUTSIDE RECORDS SUMMARY | 2024-06-17 22:20 | XMS_ITS | Encounter Summary ---
Author Organization [facility] Address [facility] [place] [address] Care Team Providers Care Computer Repair Engineer Name Role Phone Bin Bowman MD Primary Care Provider Reason for Visit * Reason Onset Date Comments Medication Refill 03/15/2021 Encounter Details Date Type Department Care Team (Late st Contact Info) Description 03/15/2021 Refill Cardiology at [address] [address] Mary Daley PA [facility] [address] Medication Refill Social History Tobacco Use Types [...] AM EDT Office Visit Cardiology at [address] [address] Mo Horne MD [facility] [place] [address] 09/21/2024 10:[address] [place] [place] [phone] Rachel Carrasco MD [facility] [place] [address] 09/21/2024 11:00 AM EST [place] [address] Rachel Carrasco MD [facility] [place] [address] documented as of this encounter Visit Diagnoses Not on filedocumented in this encounter Care Teams Computer Repair Engineer Relationship Specialty Start Date End Date Bin Bowman MD [address] [place] [address] PCP - General General Internal Medicine 04/21/1707/11 documented as of this encounter
--- OUTSIDE RECORDS SUMMARY | 2024-06-17 22:20 | XMS_ITS | Encounter Summary ---
Author Organization [facility] Address [facility] [place] [address] Care Team Providers Care Promotion Officer Name Role Phone Bin Bowman MD Primary Care Provider Encounter Details Date Type Department Care Team (Late st Contact Info) Description 03/14/2021 Refill Cardiology at [address] [address] Fadi Escobar MD [facility] [address] Social History Tobacco Use Types Packs/Day Years [...] AM EDT Office Visit Cardiology at [address] [phone] Mo Horne MD [facility] [address] 09/21/2024 10:[address] [place] [place] [address] Rachel Carrasco MD [facility] [place] [address] 09/21/2024 11:00 AM EST [place] [address] Rachel Carrasco MD [facility] [place] [address] documented as of this encounter Visit Diagnoses Diagnosis Flutter-fibrillation Other premature beats documented in this encounter Care Teams Promotion Officer Relationship Specialty Start Date End Date Bin Bowman MD [address] [place] [address] PCP - General General Internal Medicine 04/21/1707/11 documented as of this encounter
--- OUTSIDE RECORDS SUMMARY | 2024-06-17 22:20 | XMS_ITS | Encounter Summary ---
Author Organization [facility] [place] [address] Care Team Providers Care Quality Review Specialist Name Role Phone Bin Bowman MD Primary Care Provider Reason for Visit * Reason Onset Date Comments Post Procedure Call 01/17/2021 Encounter Details Date Type Department Care Team (Late st Contact Info) Description 01/17/2021 Telephone Cardiology at [address] [phone] Lennie Garcia, RN Post Procedure Call Social [...] to be done w/ Dr. Culver @ [facility] (01/22) 2) F/u w/ Mary Daley on 02/05 3) Zio in early/mid February 4) F/u w/ Dr. Escobar in early March documented in this encounter Plan of Treatment Upcoming Encounters Date Type Department Care Team (Late st Contact Info) Description 06/23/2024 10:00 AM EDT Office Visit Cardiology at [address] [place] [address] Mo Horne MD [facility] [place] [address] 09/21/2024 10:[address] [place] [place] [phone] Rachel Carrasco MD [facility] [place] [address] 09/21/2024 11:00 AM EST [place] [address] Rachel Carrasco MD [facility] [place] [address] documented as of this encounter Visit Diagnoses Not on filedocumented in this encounter Care Teams Quality Review Specialist Relationship Specialty Start Date End Date Bin Bowman MD [address] [place] [address] PCP - General General Internal Medicine 04/21/1707/11 documented as of this encounter
--- OUTSIDE RECORDS SUMMARY | 2024-06-17 22:20 | XMS_ITS | Encounter Summary ---
Author Organization [facility] Address [facility] [place] [address] Care Team Providers Care Manager Books Name Role Phone Bin Bowman MD Primary Care Provider [phone] Encounter Details Date Type Department Care Team (Late st Contact Info) Description 02/05/2021 2:15 PM EDT Office Visit Cardiology at [address] [address] Mary Daley, [facility] [place] [address] PAF (paroxysmal atrial fibrillation) Social History Tobacco [...] requiring pressor support in setting of acute yllda-yu-zbgeculj pericardial effusion for which a pericardiocentesis was [...] Note: Added automatically from request for surgery [id number] ??? PAF (paroxysmal atrial fibrillation) Overview Note: Added automatically from request for surgery [id number] ??? Flutter-fibrillation ??? H/O cardiac radiofrequency ablation ??? Coronary disease Overview Note: ?? 2017: STEMI. PCI of OM1. EF 60%. Many ER visits to [facility] after this. ??? Heart palpitations ??? Obesity [...] in office today shows SR at 64bpm, HI of 164ms, QRS of 100ms, QT 418ms, [...] He is experiencing some diarrhea with colchicine, abjqigmrjoqhfuij-pxwal-tbu dosing if diarrhea continues. Communicated Dr. Escobar's [...] contact EP with any further questions (pager [phone]). SONNY Grover 4:04 PM 02/05/21 documented in this encounter Plan of Treatment Upcoming Encounters Date Type Department Care Team (Late st Contact Info) Description 06/23/2024 10:00 AM EDT Office Visit Cardiology at [address] [place] [address] Mo Horne MD [facility] [place] [address] 09/21/2024 10:[address] [place] [place] [phone] Rachel Carrasco MD [facility] [place] [address] 09/21/2024 11:00 AM EST Office [place] [address] Rachel Carrasco MD [facility] [place] [address] documented as of this encounter Procedures Procedure [...] (Bezet) 431 ms MUSE SYSTEM Calculated P [place] 21 degrees MUSE SYSTEM Calculated R [place] 41 degrees MUSE SYSTEM Calculated T [place] 12 degrees MUSE SYSTEM INTERPRETATION Normal sinus rhythm Possible Inferior infarct (cited on or before 13-JAN-2021) Abnormal ECG When compared with ECG of 15-JAN-2021 15:43, No significant change was found Confirmed by MD Nataly, Gilberto Jerome ([id number]) on 02/05/2021 3:31:24 PM MUSE SYSTEM 02/05/2021 2:45 PM EDT 02/05/2021 3:31 PM EDT Wilian Bridges MD ECG ORDERABLES MUSE SYSTEM documented in this encounter Visit Diagnoses Diagnosis PAF (paroxysmal atrial fibrillation) Atrial fibrillation documented in this encounter Care Teams Manager Books Relationship Specialty Start Date End Date Bin Bowman MD [address] [place] [address] PCP - General General Internal Medicine 04/21/1707/11 documented as of this encounter
--- OUTSIDE RECORDS SUMMARY | 2024-06-17 22:20 | XMS_ITS | Encounter Summary ---
Author [facility] [place] [address] Care Team Providers Care Lodge Sales Associate Name Role Phone Bin Bowman MD Primary Care Provider [phone] Encounter Details Date Type Department Care Team (Late st Contact Info) Description 02/16/2021 10:35 AM EDT Anesthesia Event [place] [address] Ariella Shetty MD [facility] [place] [address] Ariella Shetty MD [facility] [place] [address] Anesthesia Record Procedure Summary Procedure Name Responsible [...] OR Notes * Anesthesia Preprocedure Evaluation - LaureentadAriella Rashaun - 02/15/2021 8:17 PM EDT Pre-Anesthesia Evaluation for: Rolo Aguilar a 50 y.o. male. Procedure(s): CARDIOVERSION-ELECTIVE (WRVU 2.25) Patient Active Problem List Diagnosis ??? Atrial flutter ??? Bipolar disorder ??? SVT (supraventricular tachycardia) Added automatically from request for surgery [id number] ??? PAF (paroxysmal atrial fibrillation) Added automatically from request for surgery [id number] ??? Flutter-fibrillation ??? H/O cardiac radiofrequency ablation [...] performed by Colt Hewitt MD [facility] MAIN OR ??? PRO UNLISTED LAPAROSCOPIC PX LVR N/A 07/21/2018 LAPAROSCOPIC LIVER BIOPSY (WRVU 16.52) performed by Colt Hewitt MD at [facility] MAIN OR ??? PRO UPPER GI ENDOSCOPY, BIOPSY N/A 12/29/2017 UPPER GASTROINTESTINAL ENDOSCOPY,WITH BIOPSY SINGLE OR MULTIPLE (WRVU 2.49) performed by Yusuf Tucker MD at [facility] ENDOSCOPY ??? PRO UPPER GI ENDOSCOPY, DIAGNOSTIC N/A 12/29/2017 EGD, UPPER GI ENDOSCOPY performed by Yusuf Tucker MD at [facility] ENDOSCOPY ??? TONSILLECTOMY Social History Tobacco Use ??? Smoking status: Former Smoker Packs/day: 1.50 Years: 15.00 Pack years: 22.50 Types: Cigarettes Quit date: 2013 Years since [...] AM EDT Office Visit Cardiology at [address] [place] [phone] Mo Horne MD [facility] [place] [address] 09/21/2024 10:[address] Scan at [place] [phone] Rachel Carrasco MD [facility] [place] [address] 09/21/2024 11:00 AM EST Office [place] [phone] Rachel Carrasco MD [facility] [place] [address] documented as of this encounter Visit Diagnoses Not on filedocumented in this encounter Care Teams Lodge Sales Associate Relationship Specialty Start Date End Date Bin Bowman MD [address] [place] [address] PCP - General General Internal Medicine 04/21/1707/11 documented as of this encounter
--- OUTSIDE RECORDS SUMMARY | 2024-06-17 22:20 | XMS_ITS | Encounter Summary ---
Author Organization [facility] [place] [address] Care Team Providers Care Rigging And Controls Aircraft Mechanic Name Role Phone Bin Bowman MD Primary Care Provider [phone] Reason for Visit * Reason Onset Date Comments Follow-up 02/21/2021 Encounter Details Date Type Department Care Team (Late st Contact Info) Description 02/21/2021 Telephone Cardiology at [address] [phone] Lennie Garcia, RN Follow-up Social History Tobacco Use Types Packs/Day Years Used Date Smoking Tobacco: Former Cigarettes 1.5 15 - 2013 Smokeless Tobacco: Former Chew Alcohol [...] AM EDT Office Visit Cardiology at [address] [place] [address] Mo Horne MD [facility] [place] [address] 09/21/2024 10:[address] [place] [place] [phone] Rachel Carrasco MD [facility] [place] [address] 09/21/2024 11:00 AM EST [place] [phone] Rachel Carrasco MD [facility] [address] documented as of this encounter Visit Diagnoses Not on filedocumented in this encounter Care Teams Rigging And Controls Aircraft Mechanic Relationship Specialty Start Date End Date Bin Bowman MD [address] [place] [address] PCP - General General Internal Medicine 04/21/1707/11 documented as of this encounter
--- OUTSIDE RECORDS SUMMARY | 2024-06-17 22:20 | XMS_ITS | Encounter Summary ---
Author Organization [facility] Address [facility] [place] [address] Care Team Providers Care Clay Washer Name Role Phone Bin Bowman MD Primary Care Provider [phone] Encounter Details Date Type Department Care Team (Late st Contact Info) Description 01/15/2021 4:00 PM EST Office Visit Cardiology at [address] [place] [address] Judy Tijerina MD [facility] [place] [address] Flutter-fibrillation; SVT (supraventricular tachycardia); Coronary disease; Essential [...] CARE PROVIDER: Bin Bowman MD REFERRING PROVIDER: iBn Bowman Patient ID: Rolo Aguilar is a [...] 266 QTC Calculated (Bezet) 407 Calculated P [place] 55 Calculated R [place] 28 Calculated T [place] 54 INTERPRETATION Sinus tachycardia Low voltage QRS Possible Inferior infarct , age undetermined Abnormal ECG EKG 12 Lead Result Value Ventricular rate 141 Atrial Rate 141 P-R Interval 146 QRS Duration 94 Q-T Interval 266 QTC Calculated (Bezet) 407 Calculated P [place] 55 Calculated R [place] 28 Calculated T [place] 54 INTERPRETATION Sinus tachycardia Low voltage QRS Possible Inferior infarct (cited on or before 13-JAN-2021) Abnormal ECG When compared with ECG of 12-JAN-2021 00:07, Diffuse ST-elevations have resolved, and there are now diffuse TWI, consistent with resolving pericarditis Confirmed by MD De Anda Daniel ([id number]) on 01/13/2021 12:29:23 PM Assessment and Plan: [...] do not want to travel to [facility] for echocardiogram 3) 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 I have given them copy of today's EKG and discharge summary and asked that they have all records (including this note) sent to their hydrogen power plant engineer, Dr. Culver. They have follow up with the Electrophysiology team here and agreed to keep these appointments. This appointment was 50 minutes long and > 50% of the time was spent counseling, and coordination of care. Time spent for this clinic appointment on the date of service includes: 1) [id number] counseling as noted above 2) reviewing past medical records, cardiac testing, results of laboratory testing 3) coordinating care with other physicians and allied health care providers Judy Tijerina MD, Robinson, FACC, FNLA Attending [facility] Preventive Cardiology Lipid Clinic Advanced Hypertension Clinic documented in this encounter Plan of Treatment Upcoming Encounters Date Type Department Care Team (Late st Contact Info) Description 06/23/2024 10:00 AM EDT Office Visit Cardiology at [address] [phone] Mo Horne MD [facility] [place] [place] [address] 09/21/2024 10:[address] [place] [address] Rachel Carrasco MD [facility] [place] [address] 09/21/2024 11:00 AM EST Office [place] [phone] Rachel Carrasco MD [facility] [place] [place] [address] documented as of this encounter Procedures Procedure [...] (Bezet) 432 ms MUSE SYSTEM Calculated P [place] 10 degrees MUSE SYSTEM Calculated R [place] 32 degrees MUSE SYSTEM Calculated T [place] 36 degrees MUSE SYSTEM INTERPRETATION Normal sinus [...] hypertension documented in this encounter Care Teams Clay Washer Relationship Specialty Start Date End Date Bin Bowman MD [address] [place] [address] PCP - General General Internal Medicine 04/21/1707/11 documented as of this encounter
--- OUTSIDE RECORDS SUMMARY | 2024-06-17 22:20 | XMS_ITS | Encounter Summary ---
Author Organization [facility] [place] [address] Care Team Providers Care It Application Architect Name Role Phone Bin Bowman MD Primary Care Provider Reason for Visit * Reason Onset Date Comments Follow-up 02/02/2021 Encounter Details Date Type Department Care Team (Late st Contact Info) Description 02/02/2021 Telephone Cardiology at [address] [phone] Lennie Garcia, RN Follow-up Social History Tobacco [...] f/u CXR & echo from 01/31 at [facility] with Dr. Culver CXR from 01/31 [...] AM EDT Office Visit Cardiology at [address] [place] [phone] Mo Horne MD [facility] [place] [address] 09/21/2024 10:[address] [place] [place] [phone] Rachel Carrasco MD [facility] [place] [address] 09/21/2024 11:00 AM EST [place] [phone] Rachel Carrasco MD [facility] [place] [address] documented as of this encounter Visit Diagnoses Not on filedocumented in this encounter Care Teams It Application Architect Relationship Specialty Start Date End Date Bin Bowman MD [address] [place] [address] PCP - General General Internal Medicine 04/21/1707/11 documented as of this encounter
--- OUTSIDE RECORDS SUMMARY | 2024-06-17 22:20 | XMS_ITS | Encounter Summary ---
Author Organization [facility] Address [facility] [place] [address] Care Team Providers Care Permaculture Designer Name Role Phone Bin Bowman MD Primary Care Provider [phone] Encounter Details Date Type Department Care Team (Late st Contact Info) Description 01/23/2021 Orders Only Cardiology at [address] [phone] Chica Rm, RN PAF (paroxysmal atrial fibrillation) [...] AM EDT Office Visit Cardiology at [address] [address] Mo Horne MD [facility] [place] [address] 09/21/2024 10:[address] [place] [place] [address] Rachel Carrasco MD [facility] [place] [address] 09/21/2024 11:00 AM EST Office Visit Urology at [facility] [place] [address] Rachel Carrasco MD [facility] [place] [address] documented as of this encounter Results * EKG 12 Lead (02/05/2021 2:45 PM EDT) Ventricular rate 64 BPM MUSE SYSTEM Atrial Rate 64 BPM MUSE SYSTEM P-R Interval 164 ms MUSE SYSTEM QRS Duration 100 ms MUSE SYSTEM Q-T Interval 418 ms MUSE SYSTEM QTC Calculated (Bezet) 431 ms MUSE SYSTEM Calculated P [place] 21 degrees MUSE SYSTEM Calculated R [place] 41 degrees MUSE SYSTEM Calculated T [place] 12 degrees MUSE SYSTEM INTERPRETATION Normal sinus [...] fibrillation documented in this encounter Care Teams Permaculture Designer Relationship Specialty Start Date End Date Bin Bowman MD [address] [place] [address] PCP - General General Internal Medicine 04/21/1707/11 documented as of this encounter
--- OUTSIDE RECORDS SUMMARY | 2024-06-17 22:20 | XMS_ITS | Encounter Summary ---
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 Pt's expresses that pt wishes to have testing done at Dr. Culver office at [facility] Cardiology Called Dr. Culver office, spoke w/ Yulia, RN who will convey message to Dr. Culver & who will set up testing (limited echo & CMP, LFT, Mag labs) Pt has f/u appt with EP on 02/05 and f/u with [facility] Cards on 02/[address] Wilkerson's note to [facility] Cardiology at [phone] documented in this encounter Plan of Treatment Upcoming Encounters Date Type Department Care Team (Late st Contact Info) Description 06/23/2024 10:00 AM EDT Office Visit Cardiology at [address] [place] [address] Mo Horne MD [facility] [place] [place] [address] 09/21/2024 10:[address] [place] [place] [address] Rachel Carrasco MD [facility] [place] [address] 09/21/2024 11:00 AM EST Office [place] [address] Rachel Carrasco MD [facility] [place] [address] documented as of this encounter Visit Diagnoses Not on filedocumented in this encounter Care Teams Marketing Support Coordinator Relationship Specialty Start Date End Date Primeau, Bin E, MD [address] [place] [address] PCP - General General Internal Medicine 04/21/1707/11 documented as of this encounter
--- OUTSIDE RECORDS SUMMARY | 2024-06-17 22:20 | XMS_ITS | Encounter Summary ---
Author Organization [facility] [place] [address] Care Team Providers Care Physical Metallurgist Name Role Phone Bin Bowman MD Primary Care Provider [phone] Reason for Visit * Reason Onset Date Comments Follow-up 02/14/2021 Encounter Details Date Type Department Care Team (Late st Contact Info) Description 02/14/2021 Telephone Cardiology at [address] [phone] Lennie Garcia, RN Follow-up Social History Tobacco [...] discussion from yesterday (02/13) r/t [facility] d[facility]t [facility]. As a result amiodarone [...] recommended pt (if relatively stable) come to [facility]. Autumn & Bib were agreeable to this & Autumn will drive Bib to [facility]. documented in this encounter Plan of Treatment Upcoming Encounters Date Type Department Care Team (Late st Contact Info) Description 06/23/2024 10:00 AM EDT Office Visit Cardiology at [address] [place] [phone] Mo Horne MD [facility] [place] [address] 09/21/2024 10:[address] [place] [place] [address] Rachel Carrasco MD [facility] [place] [address] 09/21/2024 11:00 AM EST [place] [phone] Rachel Carrasco MD [facility] [place] [address] documented as of this encounter Visit Diagnoses Not on filedocumented in this encounter Care Teams Physical Metallurgist Relationship Specialty Start Date End Date Bin Bowman MD [address] [place] [address] PCP - General General Internal Medicine 04/21/1707/11 documented as of this encounter
--- OUTSIDE RECORDS SUMMARY | 2024-06-17 22:20 | XMS_ITS | Encounter Summary ---
Author Organization [place] [address] Care Team Providers Care Tomb Maker Helper Name Role Phone Bin Bowman MD Primary Care Provider [phone] Reason for Visit * Reason Onset Date Comments Follow-up 01/31/2021 Encounter Details Date Type Department Care Team (Late st Contact Info) Description 01/31/2021 Telephone Cardiology at [address] [phone] Lennie Garcia, RN Follow-up Social History Tobacco [...] She will keep us updated & Rolo isrony for a f/u on 02/05 with Mary Daley documented in this encounter Plan of Treatment Upcoming Encounters Date Type Department Care Team (Late st Contact Info) Description 06/23/2024 10:00 AM EDT Office Visit Cardiology at [address] [place] [address] Mo Horne MD [facility] [address] 09/21/2024 10:[address] [place] [phone] Rachel Carrasco MD [facility] [place] [address] 09/21/2024 11:00 AM EST Office [place] [phone] Rachel Carrasco MD [facility] [place] [address] documented as of this encounter Visit Diagnoses Not on filedocumented in this encounter Care Teams Tomb Maker Helper Relationship Specialty Start Date End Date Bin Bowman MD [address] [place] [address] PCP - General General Internal Medicine 04/21/1707/11 documented as of this encounter
--- OUTSIDE RECORDS SUMMARY | 2024-06-17 22:20 | XMS_ITS | Encounter Summary ---
[place] [address] Care Team Providers Care Bean Sorter Name Role Phone Bin Bowman MD Primary Care Provider Encounter Details Date Type Department Care Team (Late st Contact Info) Description 01/23/2021 Telephone Cardiology at [address] [address] Anahy Paulino, RN Social History Tobacco Use [...] PM EDT VM left from Esmer at [facility] Cardiology. She reports that the patient [...] receipt of echo results and that this teletypewriter operator will report the findings to Dr. Escobar. Note emailed to Dr. Escobar for review. Anahy Paulino security installation technician Clinic at [facility] [address] documented in this encounter Plan of Treatment Upcoming Encounters Date Type Department Care Team (Late st Contact Info) Description 06/23/2024 10:00 AM EDT Office Visit Cardiology at [address] [place] [address] Mo Horne MD [facility] [place] [address] 09/21/2024 10:[address] Scan at [place] [phone] Rachel Carrasco MD [facility] [place] [address] 09/21/2024 11:00 AM EST Office Visit Urology at [place] [phone] Rachel Carrasco MD [facility] [place] [address] documented as of this encounter Visit Diagnoses Not on filedocumented in this encounter Care Teams Bean Sorter Relationship Specialty Start Date End Date Bin Bowman MD [address] [place] [address] PCP - General General Internal Medicine 04/21/1707/11 documented as of this encounter
--- OUTSIDE RECORDS SUMMARY | 2024-06-17 22:20 | XMS_ITS | Encounter Summary ---
Author Organization [facility] Address [facility] [place] [address] Care Team Providers Care Green End Department Supervisor Name Role Phone Bin Bowman MD Primary Care Provider [phone] Reason for Visit * Reason Comments Tachycardia Shortness of Breath * Auth/Cert Specialty Diagnoses / Procedures Referred By Zeyad mishra Referred To Contact Diagnoses Atrial flutter Procedures EMERGENCY IPI Referral ID Status Reason Start Date Expiration Date Visits Re quested Visits Authorized [id number] 1 1 Encounter Details Date Type Department Care Team (Latest Contact Info) Description 02/14/2021 1:46 PM EDT - 02/17/2021 3:55 PM EDT Hospital Encounter [place] [address] Aileen Francis DO [facility] [place] [address] Nathen Figueroa MD [facility] [place] [address] Nilsa Goldstein MD [facility] [address] Ivy Hurd MD [facility] [place] [address] Atrial flutter (Primary Dx); PAF (paroxysmal atrial [...] Rolo Aguilar Patient Age: 50 y.o. Language: Armenian Race: White Ethnicity: Not nor Admit date: 02/14/2021 Discharge date and time: 02/17/21 Attending Physician: Nilsa Goldstein MD Discharge Physician: Fadi Escobar MD Follow-up Recommendations for Providers: Mr. Aguilar presented to [facility] ED on 02/14/21 in atrial fibrillation with RVR. He was then admitted for evaluation and management of symptomatic atrial fibrillation. He is being discharged in sinus rhythm on amiodarone 400 mg bid, which will decrease to 400 mg QD in one week. Mr Aguilar is anticoagulated on Apixaban 5 mg BID. Inpatient Provider Contact Information: Cardiac Electrophysiology - Weekends and holidays call [phone]; ask for maintenance inspector international trade analyst. Discharge Diagnoses (Hospital Problems) and Secondary Diagnoses [...] 3:20 PM Fadi Escobar MD Cardiology at [facility] Arrive at: Splitter Operator Area [phone] Cardiac Electrophysiology Attending This patient was seen [...] Note: Added automatically from request for surgery [id number] ??? PAF (paroxysmal atrial fibrillation) Overview Note: Added automatically from request for surgery [id number] ??? Flutter-fibrillation ??? H/O cardiac radiofrequency ablation ??? Coronary disease Overview Note: ?? 2017: STEMI. PCI of OM1. EF 60%. Many ER visits to [facility] after this. ??? Heart palpitations ??? [...] requiring pressor support in setting of acute vxsut-ab-lzkdmaxn pericardial effusion for which a pericardiocentesis was [...] he was scheduled for an outpatientDCCV at [facility] later this month. Given his progressive and intolerable symptoms, Mr. Aguilar presented to [facility] ED on 02/14/21 in atrial fibrillation with [...] - Likely SR at 70bpm with short MT of 106ms, QRS duration 100ms, QT 440ms, [...] assess symptoms /rates with exertion. His primary shredded filler hopper feeder assumes the EP service tomorrow and will discuss future management (AAD vs. Repeat ablation vs. uaeo-bwr-kjapxf strategy). Plan: 1. Continue amiodarone 400mg po BID 2. Continue anticoagulation with Eliquis 3. Continue beta-helen as tolerated 4. Encourage ambulation today I appreciate the opportunity to be involved with Mr. Aguilar's care. Please do not hesitate to contact EP with any further questions (pager [phone]). SONNY Grover 02/16/2021 Pager: [phone] Addendum Converted to sinus rhythm overnight. He [...] OM1. EF 60%. Many ER visits to [facility] after this. ??? Heart palpitations ??? [...] with rapid ventricular rates; most recently to [facility], where he believes that he was only [...] recurrent hospitalizations/ED visits/ DCCV. He presented to [facility] ED today with symptomatic tachycardia/plapitations. Pt reports was in usual state of health till 2 AM on 02/12/2021 while watching TV had a recurrence ofpalpitations with dyspnea, dizziness as well as diaphoresis. He checked his heart rate and it was in the 170s. Called EMS and landed at [facility] 40 minutes away. Thereby he got [...] platelets 375 K Sodium 138, potassium 3.9, BUN/gameroom technician 13/1.09 Troponin<0.01, TSH 2.77 Covid PCR undetectable Meds received: Adenosine 6 mg IV once for narrow complex tachycardia in the ED showed underlying a flutter. Lopressor 5 mg IV once slowed ventricular response. Fentanyl 50 MCG IV once. After consultation with the ED it was decided 20 patient to EP service with initiation of amiodarone. Personal social history: with stepchildren. 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 Past smoker [...] (WRVU 11.47) performed by Colt Hewitt MD [facility] MAIN OR ??? PRO UNLISTED LAPAROSCOPIC PX LVR N/A 07/21/2018 LAPAROSCOPIC LIVER BIOPSY (WRVU 16.52) performed by Colt Hewitt MD at [facility] MAIN OR ??? PRO UPPER GI ENDOSCOPY, BIOPSY N/A 12/29/2017 UPPER GASTROINTESTINAL ENDOSCOPY,WITH BIOPSY SINGLE OR MULTIPLE (WRVU 2.49) performed by Yusuf Tucker MD at [facility] ENDOSCOPY ??? PRO UPPER GI ENDOSCOPY, DIAGNOSTIC N/A 12/29/2017 EGD, UPPER GI ENDOSCOPY performed by Yusuf Tucker MD at [facility] ENDOSCOPY ??? TONSILLECTOMY Significant Family History: [...] Gatherings with Friends and Family: ??? Attends Buddhist Services: ??? Active Member of Clubs or [...] visualized the following studies: TTE 01/22/21 from [facility] No pericardial effusion. EF 60-65%. Large pleural [...] Troponin-T <0.01 0.00 - 0.00 ng/mL TSH Yarnell Result Value Ref Range TSH 2.77 0.27 [...] Escobar here. He recently was cardioverted at [facility] 2 days ago which transiently converted [...] and cardioversion. I did speak with the shredded filler hopper feeder on-call given the complexity of patient's presentations and he did recommend starting with low- dose adenosine 6 mg to determine if this is SVT versus atrial flutter witha buried flutter wave. Patient did report that he received adenosine once which caused a tachyarrhythmia however the on-call lecture time clock mechanic did review records and did inform you [...] He was cardioverted 2 days ago at [facility] and then went right back into afib. [...] Component Value Date COVID19 Not Detected 07/05/2020 [id number] Not Detected 02/14/2021 Past medical History: Past [...] spouse would be surrogate decision maker per [place] surrogate decision making law. (Only good for 90 days) Any patient receiving care at [facility] must abide by [place] law. The hierarchy for surrogate decision making [...] (i) The agent with financial power of insurance attorney or a conservator appointed in accordance [...] Home Address Confirmed as: [address] [place] [address] Social & Family Supports: Extended Emergency Contact Information Primary Emergency Contact: Autumn Aguilar Address: [address] [place] [address] [facility] Mobile Relation: Spouse Secondary Emergency Contact: TadeoWhitney Address: [address] [place] [address] [facility] Relation: Sibling Primary Care Provided by: self [...] Insurance: N/A Prescription Coverage: Yes Preferred Pharmacy: [facility] [address] [place] [address] - [address] [address] [facility] [address] Primary Care Provider: Bin Bowman MD [phone] Patient/Caregiver Goals of Treatment: MS home Potential Needs for Transition of Care: [...] of care planning. Chanell Fatima, RN, MSN, ic engineer Office of Care Management Pager: [phone] Work * ED Triage - Deepika To RN - 02/14/2021 1:15 PM EDT HPI (Adult) Stated Reason for Visit: I was cardioverted 2 days ago at [facility] and went back into tachycardia after 15 minutes. I have been 120-180 heart rate since. History Obtained From: patient Pt. Referred to come here by cardiology for persistent tachycardia. Pt. Has hx pericarditis. documented in this encounter Plan of Treatment Upcoming Encounters Date Type Department Care Team (Late st Contact Info) Description 06/23/2024 10:00 AM EDT Office Visit Cardiology at [address] [place] [address] Nilsa Goldstein MD [facility] [place] [address] 09/21/2024 10:[address] [place] [address] Rachel Carrasco MD [facility] [address] 09/21/2024 11:00 AM EST Office Visit Urology at [facility] [place] [address] Rachel Carrasco MD [facility] [place] [address] Scheduled Orders Name Type Priority Associated Diagnoses Orde r Schedule EKG 12 Lead ECG STAT One Time for 1 Occurrences starting 02/14/2021 until 02/14/2021 EKG 12 Lead ECG STAT Atrial flutter One Time for 1 Occurrences starting 02/16/2021 until 02/16/2021 documented as of this encounter Procedures Procedure [...] 1 :05 AM EDT BASIC METABOLIC PANEL STAT 02/15/2021 1:05 AM EDT GOLD TUBE [...] 02/14/2021 2:13 PM EDT BASIC METABOLIC PANEL STAT 02/14/2021 2:13 PM EDT EKG 12-LEAD STAT 02/14/2021 1:14 PM EDT Cardioversion Elective Arrhythmia External (81604) atrial flutter documented in this encounter Results * Electrolytes panel (02/17/2021 6:00 AM EDT) Sodium 138 135 - 145 mmol/L [facility] Potassium 3.6 3.5 - 5.0 mmol/L [facility] Comment: Please note: ??Patients with WBC >100,000 may have falsely elevated Potassium levels. ??For accurate Potassium quantification in these patients send serum separator tube (gold top) for subsequent determinations. ??Contact the Clinical Chemistry Laboratory if there are any questions. Chloride 102 98 - 107 mmol/L [facility] Carbon Dioxide 26 22 - 31 mmol/L [facility] Anion Gap 10 5 - 15 mmol/L [facility] Blood specimen (specimen) 02/17/2021 6:00 AM EDT 02/17/2021 6:13 AM EDT Narrative Resulting Agency Comment Spec In Lab Brooks Reyna MD CHEMISTRY ORDER BELEN Performing Organization Address [facility] Co de Phone Number [facility] [place] [address] * EKG 12 Lead (02/16/2021 7:45 AM EDT) Ventricular rate 70 BPM MUSE SYSTEM Atrial Rate 70 BPM MUSE SYSTEM P-R Interval 106 ms MUSE SYSTEM QRS Duration 100 ms MUSE SYSTEM Q-T Interval 440 ms MUSE SYSTEM QTC Calculated (Bezet) 475 ms MUSE SYSTEM Calculated P Hunter 55 degrees MUSE SYSTEM Calculated R Hunter 33 degrees MUSE SYSTEM Calculated T Hunter 21 degrees MUSE SYSTEM INTERPRETATION Sinus rhythm Inferior infarct , age undetermined Nonspecific T wave abnormality Abnormal ECG When compared with ECG of 14-FEB-2021 13:14, Sinus rhythm has replaced Atrial flutter Confirmed by MD Corby, Roberto Carlos Lopez ([id number]) on 02/16/2021 3:30:41 PM MUSE SYSTEM 02/16/2021 7:45 AM EDT 02/16/2021 3:30 PM EDT Brooks Reyna MD ECG ORDERABLES Performing Organization Address [facility] Co de Phone Number MUSE SYSTEM * Lavender Tube HOLD (02/16/2021 4:00 AM EDT) Lavender Hold Sample in lab. [facility] Blood specimen (specimen) Venous Draw / Unknown 02/16/2021 4:00 AM EDT 02/16/2021 4:24 AM EDT Brooks Reyna MD HEMATOLOGY ORDE RYLIE Performing Organization Address City/[facility]/ZIP Co de Phone Number [facility] [place] [address] * Electrolytes panel (02/16/2021 4:00 AM EDT) [facility] Sodium 141 135 - 145 mmol/L [facility] Potassium 3.7 3.5 - 5.0 mmol/L [facility] Comment: Please note: ??Patients with WBC >100,000 may have falsely elevated Potassium levels. ??For accurate Potassium quantification in these patients send serum separator tube (gold top) for subsequent determinations. ??Contact the Clinical Chemistry Laboratory if there are any questions. Chloride 104 98 - 107 mmol/L [facility] Carbon Dioxide 26 22 - 31 mmol/L [facility] Anion Gap 11 5 - 15 mmol/L [facility] Blood specimen (specimen) 02/16/2021 4:00 AM EDT 02/16/2021 4:23 AM EDT Narrative Resulting Agency Comment Spec In Lab Brooks Reyna MD CHEMISTRY ORDER BELEN Performing Organization Address [facility] Co de Phone Number [facility] [place] [address] * Troponin (02/15/2021 7:17 AM EDT) [facility] Troponin-T <0.01 0.00 - 0.00 ng/mL [facility] Comment: The 99th percentile for Troponin T is less than 0.01 ng/mL, any detectable cTnT concentration using this assay should be considered elevated. According to the third universal definition of myocardial infarction the following criteria with a clinical presentation consistent with acute myocardial ischemia meets the diagnosis for a myocardial infarction (NH). Detection of a rise and/or fall of cTnT, with at least one value greater than the 99th percentile (> or = 0.01) and with at least one of the following ?? Symptoms of ischemia ?? New or presumed new significant TW-gbymxzj-I wave (ST-T) changes or new left bundle [...] additional sample may be indicated. Reference: Third [place] Definition of Myocardial Infarction. Journal of the [place] College [employer]iology 2012;60:1581-98 Blood specimen (specimen) 02/15/2021 7:17 AM EDT 02/15/2021 7:49 AM EDT Narrative Resulting Agency Comment Spec In Lab Brooks Reyna MD CHEMISTRY ORDER BELEN [facility] [place] [address] * (ABNORMAL) Heparin (unfractionated) Level (02/15/2021 7:17 AM EDT) UF Heparin 1.49(Crit ical) IU/mL [facility] Comment: Critical Result called by ?? SALV[facility] CRITICAL Results read back by: ? Luis [...] Lab Brooks Reyna MD HEMATOLOGY SCOOTER YOUNGBLOOD [facility] [place] [address] * Differential, Automated (02/15/2021 1:05 AM EDT) Neutrophil % 59.6 % [facility] Neutrophil Absolute 5.76 1.70 - 6.10 x10(3)/[facility] Lymph % 32.9 % [facility] Lymphocytes Abs 3.2 0.9 - 3.2 x10(3)/[facility] Monocyte % 5.8 % [facility] Monocyte Abs 0.6 0.3 - 0.9 x10(3)/[facility] Eos % 1.0 % [facility] Eosinophils Abs 0.1 0.0 - 0.4 x10(3)/[facility] Basophil % 0.3 % [facility] Baso Absolute 0.0 0.0 - 0.1 x10(3)/[facility] Immature Gran % 0.40 % [facility] Comment: Immature granulocytes(IG's)percentage and absolute count will include metamyelocytes, myelocytes, and promyelocytes. Blood smears from CBCs yielding IG's will be scanned manually for concordance. If this scan disagrees with the automated IG or if promyelocytes are noted, a manual differential will be performed. Immature Gran Absolute 0.04 0.00 - 0.04 x10(3)/[facility] Blood specimen (specimen) 02/15/2021 1:05 AM EDT 02/15/2021 1:21 AM EDT Narrative Resulting Agency Comment Spec In Lab Brooks Reyna MD HEMATOLOGY SCOOTER YOUNGBLOOD [facility] [place] [address] * (ABNORMAL) Hemogram (02/15/2021 1:05 AM EDT) White Blood Cell 9.7(H) 4.0 - 9.5 x10(3)/[facility] Red Blood Cell 5.16 4.58 - 5.54 x10(6)/[facility] Hemoglobin 13.4(L) 13.7 - 16.5 gm/dL [facility] Hematocrit 42.0 40.5 - 48.5 % [facility] Mean Cell Volume 81.4(L) 82.9 - 93.1 [facility] Mean Cell Hemoglobin 26.0(L) 27.5 - 32.1 pg [facility] Mean Cell Hemoglobin Concentration 31.9(L) 32.0 - 35.7 gm/dL [facility] Platelet 353 145 - 357 x10(3)/[facility] RDW Standard Deviation 41.5 36.0 - 45.0 [facility] RDW coefficient of variation 14.0(H) 11.4 - 13.8 % [facility] Mean Platelet Volume 9.9 7.6 - 12.9 [facility] NRBC% auto 0.0 % [facility] NRBC Absolute 0.000 0.000 - 0.000 x10(3)/[facility] Blood specimen (specimen) 02/15/2021 1:05 AM EDT 02/15/2021 1:21 AM EDT Narrative Resulting Agency Comment Spec In Lab Brooks Reyna MD HEMATOLOGY SCOOTER YOUNGBLOOD Performing Organization Address City/[facility]/ZIP Co de Phone Number [facility] [place] [address] * (ABNORMAL) Heparin (unfractionated) Level (02/15/2021 1:05 AM EDT) UF Heparin 1.92(Crit ical) IU/mL [facility] Comment: Critical Result called by [...] Lab Brooks Reyna MD HEMATOLOGY SCOOTER YOUNGBLOOD Performing Organization Address City/[facility]/ZIP Co de Phone Number [facility] [place] [address] * Magnesium (02/15/2021 1:05 AM EDT) Pathologist [facility] Magnesium 0.81 0.69 - 1.07 mmol/L [facility] Blood specimen (specimen) 02/15/2021 1:05 AM EDT 02/15/2021 1:21 AM EDT Narrative Resulting Agency Comment Spec In Lab Brooks Reyna MD CHEMISTRY ORDER BELEN [facility] [place] [address] * Basic Metabolic Panel (non-fasting) (02/15/2021 1:05 AM EDT) Glucose 137 65 - 199 mg/dL [facility] Comment:Diabetes: >=200 mg/d L plus symptoms Blood Urea Nitrogen 13 10 - 20 mg/dL [facility] Creatinine 1.08 0.80 - 1.50 mg/dL [facility] Sodium 143 135 - 145 mmol/L [facility] Potassium 4.0 3.5 - 5.0 mmol/L [facility] Comment: Please note: ??Patients with WBC >100,000 may have falsely elevated Potassium levels. ??For accurate Potassium quantification in these patients send serum separator tube (gold top) for subsequent determinations. ??Contact the Clinical Chemistry Laboratory if there are any questions. Chloride 104 98 - 107 mmol/L [facility] Carbon Dioxide 27 22 - 31 mmol/L [facility] Anion Gap 12 5 - 15 mmol/L [facility] Calcium 9.5 8.5 - 10.5 mg/dL [facility] Est Glomerular Filtration Rate 79 >=60 mL/min/1. 73 m?? [facility] [...] MD CHEMISTRY ORDER BELEN Performing Organization Address City/[facility]/ZIP Co de Phone Number [facility] [place] [address] * Gold Tube HOLD (02/14/2021 11:16 PM EDT) Gold Hold Sample in lab. [facility] Blood specimen (specimen) Venous Draw / Unknown 02/14/2021 11:16 PM EDT 02/14/2021 11:21 PM EDT Brooks Reyna MD CHEMISTRY ORDER BELEN Performing Organization Address City/[facility] Co de Phone Number [facility] [place] [address] * Troponin (02/14/2021 11:16 PM EDT) Troponin-T <0.01 0.00 - 0.00 ng/mL [facility] Comment: The 99th percentile for Troponin T is less than 0.01 ng/mL, any detectable cTnT concentration using this assay should be considered elevated. According to the third universal definition of myocardial infarction the following criteria with a clinical presentation consistent with acute myocardial ischemia meets the diagnosis for a myocardial infarction (NH). Detection of a rise and/or fall of cTnT, with at least one value greater than the 99th percentile (> or = 0.01) and with at least one of the following ?? Symptoms of ischemia ?? New or presumed new significant UA-jnvfveh-V wave (ST-T) changes or new left bundle [...] additional sample may be indicated. Reference: Third [place] Definition of Myocardial Infarction. Journal of the [place] College of Cardiology 2012;60:1581-98 Blood specimen (specimen) 02/14/2021 11:16 PM EDT 02/14/2021 11:20 PM EDT Narrative Resulting Agency Comment Spec In Lab Brooks Reyna MD CHEMISTRY ORDER BELEN Performing Organization Address City/[facility]/ZIP Co de Phone Number [facility] [place] [address] * (ABNORMAL) pro-Brain Natriuretic Peptide (02/14/2021 11:16 PM EDT) NT-proBNP 966(H) <=124 pg/mL [facility] Blood specimen (specimen) 02/14/2021 11:16 PM EDT 02/14/2021 11:20 PM EDT Narrative Resulting Agency Comment Spec In Lab Brooks Reyna MD CHEMISTRY ORDER BELEN Performing Organization Address City/[facility] Co de Phone Number [facility] [place] [address] * XR Chest One View (02/14/2021 10:10 [...] who have questions please contact the health ocular care aide that requested your imaging first. ? Narrative 02/14/2021 10:28 PM EDT EXAMINATION: XR [...] patients who have questions please contactthe health ocular care aide that requested your imaging first. Brooks Reyna MD [facility] DX ORDERABL ES * COVID-19 PCR (02/14/2021 6:43 PM EDT) SARS-CoV-2 RNA (Rapid) Not Detected Not Detected [facility] [...] of COVID-19 is performed using the [employer] SARS-CoV-2 Test as authorized by the FDA Emergency Use Authorization (EUA). This EUA assay is intended for In-vitro Diagnostic (IVD) use with respiratory specimens such as nasopharyngeal swabs collected from individuals during the acute phase of infection. This assay is performed based on the instructions for use provided by [employer] and additional guidance provided by CDC and FDA. Testing is performed in the [facility] Laboratory within the Department of Pathology and Laboratory Medicine at [facility], certified under the Clinical Laboratory [...] fact sheets at the following FDA website: https://www.fda.gov/medical-devices/woxceiodbyq-apintnd-8110-nbafg-72-fcgkbyeaz- use-a foriiumlfmfvj-epjkony-msmzvqs/xtswy-wcauitqfndi-oieq SARS-CoV-2 Source COOK ROOM SUPERVISOR Swab [place] [facility] Nasopharyngeal swab (specimen) 02/14/2021 6:43 PM EDT 02/14/2021 7:12 PM EDT Comment:Symptoms->Surveillan ce Narrative Resulting Agency Comment Spec In Lab Nathen Figueroa MD MICROBIOLOGY - NERAL ORDERABLES Performing Organization Address [facility]/ZIP Co de Phone Number [facility] [place] [address] * Blue Tube HOLD (02/14/2021 2:13 PM EDT) Blue Hold Sample in lab. [facility] Blood specimen (specimen) Venous Draw / Unknown 02/14/2021 2:13 PM EDT 02/14/2021 2:30 PM EDT Juanito DENNIS HEMATOLOGY ORDERABLE S Performing Organization Address [facility]/ZIP Co de Phone Number [facility] [place] [address] * (ABNORMAL) Differential, Automated (02/14/2021 2:13 PM EDT) Neutrophil % 67.6 % [facility] Neutrophil Absolute 7.95(H) 1.70 - 6.10 x10(3)/[facility] Lymph % 23.4 % [facility] Lymphocytes Abs 2.8 0.9 - 3.2 x10(3)/[facility] Monocyte % 7.6 % [facility] Monocyte Abs 0.9 0.3 - 0.9 x10(3)/[facility] Eos % 0.6 % [facility] Eosinophils Abs 0.1 0.0 - 0.4 x10(3)/[facility] Basophil % 0.4 % [facility] Baso Absolute 0.0 0.0 - 0.1 x10(3)/[facility] Immature Gran % 0.40 % [facility] Comment: Immature granulocytes(IG's)percentage and absolute count will include metamyelocytes, myelocytes, and promyelocytes. Blood smears from CBCs yielding IG's will be scanned manually for concordance. If this scan disagrees with the automated IG or if promyelocytes are noted, a manual differential will be performed. Immature Gran Absolute 0.05(H) 0.00 - 0.04 x10(3)/[facility] LABORATORY Blood specimen (specimen) 02/14/2021 2:13 PM EDT 02/14/2021 2:30 PM EDT Narrative Resulting Agency Comment Spec In Lab Juanito DENNIS HEMATOLOGY ORDERABLE S [facility] [place] [address] * (ABNORMAL) Hemogram (02/14/2021 2:13 PM EDT) White Blood Cell 11.8(H) 4.0 - 9.5 x10(3)/[facility] LABORATORY Red Blood Cell 5.27 4.58 - 5.54 x10(6)/[facility] LABORATORY Hemoglobin 14.0 13.7 - 16.5 gm/dL [facility] Hematocrit 43.2 40.5 - 48.5 % [facility] Mean Cell Volume 82.0(L) 82.9 - 93.1 fL [facility] Mean Cell Hemoglobin 26.6(L) 27.5 - 32.1 pg [facility] Mean Cell Hemoglobin Concentration 32.4 32.0 - 35.7 gm/dL [facility] Platelet 375(H) 145 - 357 x10(3)/mc L [facility] RDW Standard Deviation 41.3 36.0 - 45.0 fL [facility] RDW coefficient of variation 13.9(H) 11.4 - 13.8 % [facility] Mean Platelet Volume 10.5 7.6 - 12.9 [facility] LABORATORY NRBC% auto 0.0 % [facility] LABORATORY NRBC Absolute 0.000 0.000 - 0.000 x10(3)/mc L [facility] Blood specimen (specimen) 02/14/2021 2:13 PM EDT 02/14/2021 2:30 PM EDT Narrative Resulting Agency Comment Spec In Lab Juanito DEN[place] [address] * TSH Yarnell (02/14/2021 2:13 PM EDT) Thyroid Stimulating Hormone 2.77 0.27 - 4.20 mcIU/mL [facility] Blood specimen (specimen) 02/14/2021 2:13 PM EDT 02/14/2021 2:30 PM EDT Narrative Resulting Agency Comment Spec In Lab Rolo Wynn MD CHEMISTRY ORDERABLE S [facility] [place] [address] * Troponin (02/14/2021 2:13 PM EDT) [facility] Troponin-T <0.01 0.00 - 0.00 ng/mL [facility] Comment: The 99th percentile for Troponin T is less than 0.01 ng/mL, any detectable cTnT concentration using this assay should be considered elevated. According to the third universal definition of myocardial infarction the following criteria with a clinical presentation consistent with acute myocardial ischemia meets the diagnosis for a myocardial infarction (NH). Detection of a rise and/or fall of cTnT, with at least one value greater than the 99th percentile (> or = 0.01) and with at least one of the following ?? Symptoms of ischemia ?? New or presumed new significant CG-sxtoarv-W wave (ST-T) changes or new left bundle [...] additional sample may be indicated. Reference: Third [place] Definition of Myocardial Infarction. Journal of the [place] [employer] 2012;60:1581-98 Blood specimen (specimen) 02/14/2021 2:13 PM EDT 02/14/2021 2:30 PM EDT Narrative Resulting Agency Comment Spec In Lab Rolo Wynn MD CHEMISTRY ORDERABLE S [facility] [place] [address] * Basic Metabolic Panel (non-fasting) (02/14/2021 2:13 PM EDT) [facility] Glucose 109 65 - 199 mg/dL [facility] Comment:Diabetes: >=200 mg/d L plus symptoms Blood Urea Nitrogen 13 10 - 20 mg/dL [facility] Creatinine 1.09 0.80 - 1.50 mg/dL [facility] [...] questions. Chloride 101 98 - 107 mmol/L [facility] Carbon Dioxide 25 22 - 31 mmol/L [facility] Anion Gap 12 5 - 15 mmol/L [facility] Calcium 9.8 8.5 - 10.5 mg/dL [facility] Est Glomerular Filtration Rate 78 >=60 mL/min/1. 73 m?? [facility] [...] Lab Rolo Wynn MD CHEMISTRY ORDERABLE S [facility] [place] [address] * EKG 12 Lead (02/14/2021 1:14 PM EDT) Ventricular rate 129 BPM MUSE SYSTEM Atrial Rate 258 BPM MUSE SYSTEM QRS Duration 100 ms MUSE SYSTEM Q-T Interval 370 ms MUSE SYSTEM QTC Calculated (Bezet) 542 ms MUSE SYSTEM Calculated R Hunter 68 degrees MUSE SYSTEM Calculated T Hunter 69 degrees MUSE SYSTEM INTERPRETATION Atrial flutter with 2:1 A-V conduction Nonspecific ST and T wave abnormality Abnormal ECG When compared with ECG of 05-FEB-2021 14:45, Atrial flutter has replaced Sinus rhythm Vent. rate has increased BY ??65 BPM Confirmed by MD De Anda Daniel ([id number]) on 02/15/2021 4:27:28 PM MUSE SYSTEM 02/14/2021 1:14 PM EDT 02/15/2021 4:27 PM EDT Rolo Wynn MD ECG ORDERABLES MUSE SYSTEM documented in [...] on Fri02/15/21 at 0900, Until Discontinued, Routine Given 02/17/2021 [...] on Fri02/15/21 at 0900, Until Discontinued, Routine Given 02/17/2021 [...] NIGHTLY, First dose (after last modification) on [facility] 02/15/21 at 0200, Until Discontinued, Routine Given 02/16/2021 9:30 PM EDT 100 mg Given 02/15/2021 9:24 PM EDT 100 mg Given 02/15/2021 1:17 AM EDT 100 mg lidocaine (Lidoderm) 5% topical patch 1 patch 1 patch, Transdermal, EVERY 24 HOURS, First dose on [facility] 02/15/21 at 1000, Until Discontinued, Apply patch(es) for 12 hours, and then remove for 12 hours., Routine Patch Applied 02/15/2021 10:09 AM EDT 1 patch 07- Back Lower (Left) lidocaine (Lidoderm) topical patch REMOVAL Transdermal, EVERY 24 HOURS, First dose on [facility] 02/15/21 at 2130, Until Discontinued, Remove lidocaine 5% [...] PRN, Starting on Fri02/14/21 at 2155, Until Fri02/17/21 at 1755, Chest pain, May repeat every [...] Routine 0820 (Given - Provider: Rachana Almonte RN)212 (Given - Provider: Franco Kerns RN) 0914 (Given - Provider: Autumn Cotter RN - Comment: qtc 0.43) apixaban (Eliquis) tablet 5 mg 5 mg, Oral, 2 TIMES DAILY, First dose on Fri02/15/21 at 1200, Until Discontinued, Anticoagulant, Routine, Restricted anticoagulant, choose the most appropriate response: Approved indication of non-valvular atrial fibrillation 1321 (Given - Provider: Luis Alberto Palafox RN)2126 (Given - Provider: Valentin North RN) 0818 (Given - Provider: Rachana Almonte RN)2128 (Given - Provider: Franco Kerns RN) 0915 (Given - Provider: Autumn Cotter, FLAVIA) aspirin EC tablet 81 mg 81 mg, Oral, DAILY, First dose on Fri02/15/21 at 0900, Until Discontinued, Routine 0850 (Given - Provider: Luis Alberto Palafox RN) 0817 (Given - Provider: Rachana Almonte RN) 0914 (Given - Provider: Autumn Cotter, FLAVIA) atorvastatin (Lipitor) tablet 20 mg 20 mg, Oral, EVERY EVENING, First dose on Fri02/15/21 at 1700, Until Discontinued, Routine 1614 (Given - Provider: Luis Alberto Palafox RN) 1657 (Given - Provider: Rachana Almonte, FLAVIA) [...] Routine 0850 (Given - Provider: Luis Alberto Palafox, FLAVIA) 0817 (Given - Provider: Rachana Almonte, FLAVIA) 0915 (Given - Provider: Autumn Cotter, FLAVIA) lamoTRIgine (LaMICtal) tablet 100 mg 100 mg, Oral, NIGHTLY, First dose (after last modification) on Fri02/15/21 at 0200, Until Discontinued, Routine 0117 (Given - Provider: Lashawn Foley RN)2123 (Given - Provider: Valentin North, FLAVIA) 2129 (Given - Provider: Franco Kerns, FLAVIA) lidocaine (Lidoderm) 5% topical patch 1 patch(Linked Group 1) 1 patch, Transdermal, EVERY 24 HOURS, First dose on Fri02/15/21 at 1000, Until Discontinued, Apply patch(es) for 12 hours, and then remove for 12 hours., Routine 1009 (Patch Applied - Provider: Luis Alberto Palafox RN) 1000 (Not Given - Provider: Rachana Almonte RN - Reason: Patient/family refused) 1000 (Not Given - Provider: Autumn Cotter RN - Reason: Patient/family refused) lidocaine (Lidoderm) topical [...] (Given - Provider: Luis Alberto Palafox, FLAVIA) metoprolol tartrate (Lopressor) tablet 25 mg 25 [...] Hold for HR <60 or SBP<100, Routine 2124 (Given - Provider: Valentin North RN) pantoprazole EC (Protonix) tablet 40 mg 40 mg, Oral, DAILY, First dose on Fri02/15/21 at 0900, Until Discontinued, DO NOT CRUSH OR OPEN, Routine 0849 (Given - Provider: Luis Alberto Palafox RN) 0818 (Given - Provider: Rachana Almonte, FLAVIA) 0915 (Given - Provider: Autumn Cotter RN) sodium chloride 0.9 % (flush) flush 5 mL 5 mL, Intravenous, 2 TIMES DAILY, First dose on Fri02/14/21 at 2159, Until Discontinued, Routine 0851 (Given - Provider: Luis Alberto Palafox RN)212 (Given - Provider: Valentin North RN) 0822 (Given - Provider: Rachana Almonte RN)2132 (Given - Provider: Franco Kerns, FLAVIA) 0900 (Not Given - Provider: Autumn Cotter, FLAVIA - Reason: Contraindicated) sodium chloride 0.9 % (flush) flush 5 mL 5 mL, Intravenous, 2 TIMES DAILY, First dose on Fri02/16/21 at 1145, Until Discontinued, Routine 1145 (Not Given - Provider: Rachana Almonte, FLAVIA - Reason: Contraindicated)213 (Given - Provider: Franco Kerns RN) 0916 (Given - Provider: Autumn Cotter RN) Continuous Medication Order 02/15/2021 02/16/2021 02/17/2021 AMIOdarone [...] change)0852 (New Bag - Provider: Luis Alberto Palafox RN)1918 (New Bag - Provider: Luis Alberto Palafox RN) 0807 (Stopped - Provider: Rachana Almonte, FLAVIA) [...] 0119 (New Bag - Provider: Lashawn Foley RN)014 (Paused - Provider: Lashawn Foley RN)025 (Restarted - Provider: Lashawn Foley RN)08 (Stopped - Provider: Luis Alberto Palafox RN) [...] 08 (Given - Provider: Luis Alberto Palafox, FLAVIA) clonazePAM (KlonoPIN) tablet 1 mg 1 mg, Oral, 2 TIMES DAILY PRN, Starting on Fri02/14/21 at 2355, Until 02/17/21 at 1755, Anxiety, DO NOT SPLIT, CRUSH OR OPEN, Routine 011 (Given - Provider: Lashawn Foley RN)2124 (Given - Provider: Valentin North RN) 936 (Given - Provider: Rachana Almonte RN)2134 (Given - Provider: Franco Kerns RN) lidocaine [...] mg/day., Routine 936 (Given - Provider: Rachana Almonte RN) nitroGLYcerin (Nitrostat) disintegrating tablet 0.4 mg [...] Units/hr (0-100 mL/hr), Intravenous, CONTINUOUS, Starting on Fri02/15/21 at 0045, Until Fri02/15/21 at 1052, Begin infusion at 1,750 units [...] Routine documented in this encounter Care Teams Green End Department Supervisor Relationship Specialty Start Date End Date Bin Bowman MD [address] [place] [id number] PCP - General General Internal Medicine 04/21/1707/11 documented as of this encounter
--- OUTSIDE RECORDS SUMMARY | 2024-06-17 22:20 | XMS_ITS | Encounter Summary ---
Author Organization [facility] [place] [address] Care Team Providers Care Powerhouse Engineer Name Role Phone Bin Bowman MD Primary Care Provider Reason for Visit * Reason Onset Date Comments Prior Authorization 03/08/2021 colchicine Encounter Details Date Type Department Care Team (Late st Contact Info) Description 03/08/2021 Telephone Cardiology at [address] [phone] Fady Lord RNrod piler (colchicine) Social History Tobacco Use Types Packs/Day [...] Telephone Encounter - Fady Lord RN - 03/08/2021 7:27 AM EDT Medication Prior Authorization for [place] [address] Patient: Rolo Aguilar Patient : 1970 Insurance [...] Date: 03/14/21 End Date: 03/14/22 Case/Reference #: [id number] documented in this encounter Plan of Treatment Upcoming Encounters Date Type Department Care Team (Late st Contact Info) Description 06/23/2024 10:00 AM EDT Office Visit Cardiology at [address] [phone] Mo Horne MD [facility] [place] [address] 09/21/2024 10:[address] [place] [place] [phone] Rachel Carrasco MD [facility] [place] [address] 09/21/2024 11:00 AM EST [place] [address] Rachel Carrasco MD [facility] [address] documented as of this encounter Visit Diagnoses Not on filedocumented in this encounter Care Teams Powerhouse Engineer Relationship Specialty Start Date End Date Bin Bowman MD [address] [place] [id number] PCP - General General Internal Medicine 04/21/1707/11 documented as of this encounter
--- OUTSIDE RECORDS SUMMARY | 2024-06-17 22:20 | XMS_ITS | Encounter Summary ---
Author Organization [facility] [place] [address] Care Team Providers Care Wallpaper Hanger Name Role Phone Bin Bowman MD Primary Care Provider Reason for Visit * Reason Onset Date Comments Medication Refill 02/02/2021 Encounter Details Date Type Department Care Team (Late st Contact Info) Description 02/02/2021 Refill Cardiology at [address] [phone] Fadi Escobar MD [facility] [place] [address] Medication Refill Social History Tobacco Use Types [...] AM EDT Office Visit Cardiology at [address] [address] Mo Horne MD [facility] [place] [address] 09/21/2024 10:[address] [place] [phone] Rachel Carrasco MD [facility] [place] [address] 09/21/2024 11:00 AM EST Office [place] [phone] Rachel Carrasco MD [facility] [place] [address] documented as of this encounter Visit Diagnoses Diagnosis Flutter-fibrillation Other premature beats documented in this encounter Care Teams Wallpaper Hanger Relationship Specialty Start Date End Date Bin Bowman MD [address] [place] [phone] PCP - General General Internal Medicine 04/21/1707/11 documented as of this encounter
--- OUTSIDE RECORDS SUMMARY | 2024-06-17 22:20 | XMS_ITS | Encounter Summary ---
Author Organization [facility] [place] [address] Care Team Providers Care Snorkelling Instructor Name Role Phone Bin Bowman MD Primary Care Provider Encounter Details Date Type Department Care Team (Latest Contact Info) Description 02/05/2021 1:30 PM EDT Laboratory Appointment Lab [address] [place] [address] Essential hypertension; High risk medication [...] AM EDT Office Visit Cardiology at [address] [phone] Mo Horne MD [facility] [place] [address] 09/21/2024 10:[address] [place] [place] [phone] Rachel Carrasco MD [facility] [place] [address] 09/21/2024 11:00 AM EST Office Visit Urology at [facility] [place] [place] [address] Rachel Carrasco MD [facility] [place], [place] [id number] documented as of this encounter Procedures Procedure [...] * Differential, Automated (02/05/2021 2:04 PM EDT) Neutrophil % 46.8 % [facility] Neutrophil Absolute 3.24 1.70 - 6.10 x10(3)/[facility] LABORATORY Lymph % 39.8 % [facility] Lymphocytes Abs 2.8 0.9 - 3.2 x10(3)/[facility] LABORATORY Monocyte % 8.7 % [facility] LABORAT[facility] Monocyte Abs 0.6 0.3 - 0.9 x10(3)/[facility] LABORATORY Eos % 3.6 % [facility] Eosinophils Abs 0.2 0.0 - 0.4 x10(3)/[facility] LABORATORY Basophil % 0.7 % [facility] Baso Absolute 0.0 0.0 - 0.1 x10(3)/[facility] LABORATORY Immature Gran % 0.40 % [facility] Comment: Immature granulocytes(IG's)percentage and absolute count will include metamyelocytes, myelocytes, and promyelocytes. Blood smears from CBCs yielding IG's will be scanned manually for concordance. If this scan disagrees with the automated IG or if promyelocytes are noted, a manual differential will be performed. Immature Gran Absolute 0.03 0.00 - 0.04 x10(3)/[facility] LABORATORY Blood specimen (specimen) 02/05/2021 2:04 PM EDT 02/05/2021 2:15 PM EDT Narrative Resulting Agency Comment Spec In Lab Fadi Escobar MD HEMATOLOGY ORDERABLE S [facility] [place] [address] * (ABNORMAL) Hemogram (02/05/2021 2:04 PM EDT) White Blood Cell 6.9 4.0 - 9.5 x10(3)/[facility] LABORATORY Red Blood Cell 4.85 4.58 - 5.54 x10(6)/[facility] LABORATORY Hemoglobin 13.0(L) 13.7 - 16.5 gm/dL [facility] Hematocrit 40.7 40.5 - 48.5 % [facility] Mean Cell Volume 83.9 82.9 - 93.1 fL [facility] Mean Cell Hemoglobin 26.8(L) 27.5 - 32.1 pg [facility] Mean Cell Hemoglobin Concentration 31.9(L) 32.0 - 35.7 gm/dL [facility] Platelet 293 145 - 357 x10(3)/[facility] LABORATORY RDW Standard Deviation 41.8 36.0 - 45.0 fL [facility] RDW coefficient of variation 13.5 11.4 - 13.8 % [facility] Mean Platelet Volume 9.8 7.6 - 12.9 fL [facility] NRBC% auto 0.0 % [facility] NRBC Absolute 0.000 0.000 - 0.000 x10(3)/mc L [facility] Blood specimen (specimen) 02/05/2021 2:04 PM EDT 02/05/2021 2:15 PM EDT Narrative Resulting Agency Comment Spec In Lab Fadi Escobar MD HEMATOLOGY ORDERABLE S [facility] [address] * (ABNORMAL) Basic Metabolic Panel (non-fasting) (02/05/2021 2:04 PM EDT) Glucose 115 65 - 199 mg/dL [facility] Comment:Diabetes: >=200 mg/d L plus symptoms Blood Urea Nitrogen 8(L) 10 - 20 mg/dL [facility] Creatinine 0.98 0.80 - 1.50 mg/dL [facility] Sodium 141 135 - 145 mmol/L [facility] Potassium 3.9 3.5 - 5.0 mmol/L [facility] Comment: Please note: ??Patients with WBC >100,000 may have falsely elevated Potassium levels. ??For accurate Potassium quantification in these patients send serum separator tube (gold top) for subsequent determinations. ??Contact the Clinical Chemistry Laboratory if there are any questions. Chloride 103 98 - 107 mmol/L [facility] Carbon Dioxide 28 22 - 31 mmol/L [facility] Anion Gap 10 5 - 15 mmol/L [facility] Calcium 9.6 8.5 - 10.5 mg/dL [facility] Est Glomerular Filtration Rate 89 >=60 mL/min/1. 73 m?? [facility] Comment: This patient? s estimated [...] In Lab Fadi Escobar MD CHEMISTRY ORDERABLES [facility] [place] [address] documented in this encounter Visit Diagnoses Diagnosis Essential hypertension Unspecified essential hypertension High risk medication use Encounter for long-term (current) use of other medications SVT (supraventricular tachycardia) Other specified cardiac dysrhythmias documented in this encounter Care Teams Snorkelling Instructor Relationship Specialty Start Date End Date Bin Bowman MD [address] [place] [phone] PCP - General General Internal Medicine 04/21/1707/11 documented as of this encounter
--- OUTSIDE RECORDS SUMMARY | 2024-06-17 22:20 | XMS_ITS | Encounter Summary ---
Author Organization [facility] Address [facility] [place] [address] Care Team Providers Care Intelligence Officer Basic Name Role Phone Bin Bowman MD Primary Care Provider [phone] Reason for Visit * Reason Onset Date Comments Medication Refill 02/13/2021 Encounter Details Date Type Department Care Team (Late st Contact Info) Description 02/13/2021 Refill Cardiology at [address] [phone] Fadi Esocbar MD [facility] [place] [address] Medication Refill Social History Tobacco Use Types [...] AM EDT Office Visit Cardiology at [address] [place] [address] Mo Horne MD [facility] [place] [address] 09/21/2024 10:[address] [place] [place] [phone] Rachel Carrasco MD [facility] [place] [address] 09/21/2024 11:00 AM EST [place] [phone] Rachel Carrasco MD [facility] [place] [address] documented as of this encounter Visit Diagnoses Diagnosis Flutter-fibrillation Other premature beats documented in this encounter Care Teams Intelligence Officer Basic Relationship Specialty Start Date End Date Bin Bowman MD [address] [place] [phone] PCP - General General Internal Medicine 04/21/1707/11 documented as of this encounter
--- OUTSIDE RECORDS SUMMARY | 2024-06-17 22:20 | XMS_ITS | Encounter Summary ---
Author Organization [facility] [place] [address] Care Team Providers Care Purse Seiner Name Role Phone Bin Bowman MD Primary Care Provider Reason for Visit * - Closed Specialty Diagnoses / Procedures Referred By Zeyad mishra Referred To Contact Procedures Film Library- Storage Only DX Chest Bin Bowman MD [address] [place] [address] Referral ID Status Reason Start Date Expiration Date Visits Re quested Visits Authorized [id number] Closed 01/31/2021 01/31/2022 1 1 Encounter Details Date Type Department Care Team (Late st Contact Info) Description 01/31/2021 1:50 PM EDT Ancillary Procedure [place] [address] Bin Bowman MD [address] [place] [phone] Social History Tobacco Use Types Packs/Day Years [...] AM EDT Office Visit Cardiology at [address] [place] [address] Mo Horne MD [facility] [place] [place] [address] 09/21/2024 10:[address] [place] [place] [phone] Rachel Carrasco MD [facility] [place] [address] 09/21/2024 11:00 AM EST [place] [phone] Rachel Carrasco MD [facility] [place] [address] documented as of this encounter Procedures Procedure Name Priority Date/Time Associated Diagnosis Comments FILM LIBRARY STORAGE ONLY DX CHEST Routine 01/31/2021 1:46 PM EDT documented in this encounter Results * Film Library- Storage Only DX Chest (01/31/2021 1:46 PM EDT) Narrative [facility] - 01/31/2021 1:46 PM EDT This exam is auto-finalizing. It's purpose is for storage only. Bin Bowman MD IMG FILM LIBRARY ORD ERABLES [place], [place] documented in this encounter Visit Diagnoses Not on filedocumented in this encounter Care Teams Purse Seiner Relationship Specialty Start Date End Date Bin Bowman MD [address] [place] [phone] PCP - General General Internal Medicine 04/21/1707/11 documented as of this encounter
--- OUTSIDE RECORDS SUMMARY | 2024-06-17 22:20 | XMS_ITS | Encounter Summary ---
Author Organization [facility] [place] [address] Care Team Providers Care Hematology Nurse Educator Name Role Phone Bin Bowman MD Primary Care Provider [phone] Reason for Visit * Reason Onset Date Comments Medication Refill 02/12/2021 Encounter Details Date Type Department Care Team (Late st Contact Info) Description 02/12/2021 Refill Cardiology at [address] [address] Mary Daley PA [facility] [place] [address] Medication Refill Social History Tobacco Use Types [...] AM EDT Office Visit Cardiology at [address] [address] Mo Horne MD [facility] [place] [address] 09/21/2024 10:[address] [place] [place] [phone] Rachel Carrasco MD [facility] [place] [address] 09/21/2024 11:00 AM EST [place] [phone] Rachel Carrasco MD [facility] [place] [address] documented as of this encounter Visit Diagnoses Not on filedocumented in this encounter Care Teams Hematology Nurse Educator Relationship Specialty Start Date End Date Bin Bowman MD [address] [place] [id number] PCP - General General Internal Medicine 04/21/1707/11 documented as of this encounter
--- OUTSIDE RECORDS SUMMARY | 2024-06-17 22:20 | XMS_ITS | Encounter Summary ---
Author Organization [facility] Address [facility] [address] Care Team Providers Care Mining Detail Draftsperson Name Role Phone Bin Bowman MD Primary Care Provider [phone] Encounter Details Date Type Department Care Team (Late st Contact Info) Description 02/12/2021 [place] [phone] Donal Bennett MD [facility] [place] [address] Social History Tobacco Use Types Packs/Day Years [...] not included. Consult for AF with RVR. [facility]. Hx 50 year old male well known to the EP service history of atrial flutter s/p CTI ablation in July 2020, atrial fibrillation s/p PVI and posterior LA wall isolation on 01/10/21(c/b tamponade), anticoagulated with Eliquis, ASCVD (s/p NSTEMI, EMMY to OM1 in 07/2017), HTN, sleep apnea, RICARDO, and obesity presented to [facility] with symptomatic AF with RVR. Rates initially [...] amiodarone, he will undergo DCCV in the [facility] ED. Likely discharge home after without medication changes. I will inform EP team to discuss long termplan for atrial fibrillation. Donal Bennett MD [employer]. documented in this encounter Plan of Treatment Upcoming Encounters Date Type Department Care Team (Late st Contact Info) Description 06/23/2024 10:00 AM EDT Office Visit Cardiology at [address] [place] [address] Mo Horne MD [facility] [place] [address] 09/21/2024 10:[address] [place] [place] [phone] Rachel Carrasco MD [facility] [place] [address] 09/21/2024 11:00 AM EST [place] [phone] Rachel Carrasco MD [facility] [place] [address] documented as of this encounter Visit Diagnoses Not on filedocumented in this encounter Care Teams Mining Detail Draftsperson Relationship Specialty Start Date End Date Bin Bowman MD [address] [address] PCP - General General Internal Medicine 04/21/1707/11 documented as of this encounter
--- OUTSIDE RECORDS SUMMARY | 2024-06-17 22:20 | XMS_ITS | Encounter Summary ---
Author Organization [place] [address] Care Team Providers Care Institutional Custodian Name Role Phone Bin Bowman MD Primary Care Provider Reason for Visit * - Closed Specialty Diagnoses / Procedures Referred By Zeyad mishra Referred To Contact Procedures Film Library- Storage Only DX Chest Bin Bowman MD [address] [place] [phone] Referral ID Status Reason Start Date Expiration Date Visits Re quested Visits Authorized [id number] Closed 01/23/2021 01/23/2022 1 1 Encounter Details Date Type Department Care Team (Late st Contact Info) Description 01/23/2021 4:20 PM EDT Ancillary Procedure [place] [address] Bin Bowman MD [address] [place] [phone] Social History Tobacco Use Types Packs/Day Years [...] AM EDT Office Visit Cardiology at [address] [place] [phone] Mo Horne MD [facility] [place] [address] 09/21/2024 10:[address] [place] [place] [phone] Rachel Carrasco MD [facility] [place] [address] 09/21/2024 11:00 AM EST [place] [phone] Rachle Carrasco MD [facility] [place] [address] documented as of this encounter Procedures Procedure Name Priority Date/Time Associated Diagnosis Comments FILM LIBRARY STORAGE ONLY DX CHEST Routine 01/23/2021 4:17 PM EDT documented in this encounter Results * Film Library- Storage Only DX Chest (01/23/2021 4:17 PM EDT) Narrative [facility] - 01/23/2021 4:17 PM EDT This exam is auto-finalizing. It's purpose is for storage only. Bin Bowman MD IMG FILM LIBRARY ORD ERABLES [place], [place] documented in this encounter Visit Diagnoses Not on filedocumented in this encounter Care Teams Institutional Custodian Relationship Specialty Start Date End Date Bin Bowman MD [address] [place] [address] PCP - General General Internal Medicine 04/21/1707/11 documented as of this encounter
--- OUTSIDE RECORDS SUMMARY | 2024-06-17 22:20 | XMS_ITS | Encounter Summary ---
Author Organization [place] [address] Care Team Providers Care Laundry Pricing Clerk Name Role Phone Bin Bowman MD Primary Care Provider [phone] Reason for Visit * Reason Onset Date Comments Follow-up 02/13/2021 Encounter Details Date Type Department Care Team (Late st Contact Info) Description 02/13/2021 Telephone Cardiology at [address] [phone] Lennie Garcia, RN Follow-up Social History Tobacco [...] POC & f/u s/p ED visit at [facility] yesterday (02/12/21) Discussed situation with Dr. Escobar & Mary Daley. Plan will be for pt to continue on amiodarone 400 mg BID for 1 week (last day of BID dosing will be 02/20) Pt will then decrease down to 400 mg QD of amiodarone on 02/21. Dr. Escobar plans on contacting Dr. Culver to discuss pt. Determination will be made of sooner appt than 03/19 f/u with Dr. Escobar as well as potentially wearing heart monitor (Zio) Will await Dr. Escobar's determination & will contact pt once advisement provided. documented in this encounter Plan of Treatment Upcoming Encounters Date Type Department Care Team (Late st Contact Info) Description 06/23/2024 10:00 AM EDT Office Visit Cardiology at [address] [place] [address] Mo Horne MD [facility] [place] [address] 09/21/2024 10:[address] [place] [place] [phone] Rachel Carrasco MD [facility] [place] [address] 09/21/2024 11:00 AM EST [place] [phone] Rachel Carrasco MD [facility] [place] [address] documented as of this encounter Visit Diagnoses Not on filedocumented in this encounter Care Teams Laundry Pricing Clerk Relationship Specialty Start Date End Date Bin Bowman MD [address] [place] [address] PCP - General General Internal Medicine 04/21/1707/11 documented as of this encounter
--- OUTSIDE RECORDS SUMMARY | 2024-06-17 22:21 | XMS_ITS | Encounter Summary ---
Author [facility] [place] [address] Care Team Providers Care Finance Manager Name Role Phone Bin Bowman MD Primary Care Provider Reason for Visit * Auth/Cert Specialty Diagnoses / Procedures Referred By Zeyad mishra Referred To Contact Diagnoses SVT (supraventricular tachycardia) [I47.1], PAF (paroxysmal atrial fibrillation) [I48.0] Procedures ELECTROPHYSIOLOGY PROCEDURE TRANSESOPHAGEAL ECHO DURING CATH/EP PROCEDURE Referral ID Status Reason Start Date Expiration Date Visits Re quested Visits Authorized [id number] 1 1 Encounter Details Date Type Department Care Team (Latest Contact Info) Description 01/11/2021 5:20 AM EST - 01/11/2021 11:59 PM EST Hospital Encounter Non-[place] [phone] Discharge Disposition: Home Social History Tobacco Use [...] AM EDT Office Visit Cardiology at [address] [place] [address] Mo Horne MD [facility] [place] [address] 09/21/2024 10:[address] [place] [place] [phone] Rachel Carrasco MD [facility] [place] [address] 09/21/2024 11:00 AM [place] [phone] Rachel Carrasco MD [facility] [place] [address] documented as of this encounter Procedures Procedure [...] ONCE PRN, 1 dose, Starting on Candi 01/11/21 at 1021, Until Candi 01/11/21 at 1021, for enhancement of sub-optimal echo images, Echo Lab (Intra-Procedure), Routine Given 01/11/2021 10:21 AM EST 0.5 mLs documented in this encounter Care Teams Finance Manager Relationship Specialty Start Date End Date Bin Bowman MD [address] [address] PCP - General General Internal Medicine 04/21/1707/11 documented as of this encounter
--- OUTSIDE RECORDS SUMMARY | 2024-06-17 22:21 | XMS_ITS | Encounter Summary ---
Author Organization [facility] Address [facility] [place] [address] Care Team Providers Care Radio Frequency Technician Name Role Phone Bin Bowman MD Primary Care Provider [phone] Reason for Visit * Auth/Cert Specialty Diagnoses / Procedures Referred By Zeyad mishra Referred To Contact Diagnoses SVT (supraventricular tachycardia) [I47.1], PAF (paroxysmal atrial fibrillation) [I48.0] Procedures ELECTROPHYSIOLOGY PROCEDURE TRANSESOPHAGEAL ECHO DURING CATH/EP PROCEDURE Referral ID Status Reason Start Date Expiration Date Visits Re quested Visits Authorized [id number] 1 1 Encounter Details Date Type Department Care Team (Latest Contact Info) Description 01/10/2021 9:22 AM EST - 01/13/2021 3:[address] [facility] Hospital Encounter [place] [id number] Fadi Escobar MD [facility] CARDIOLOGY [place] [id number] Rayo Bianchi MD [facility] [address] Judy Tijerina MD [facility] [place] [address] Jose Anand MD [facility] [place] [address] SVT (supraventricular tachycardia); SVT (supraventricular tachycardia); PAF [...] a total of 1.6 LR in the lab technologist. He was awakened from anesthesia, extubated and [...] MV E-wave Vmax 0.94 m/sec MV deceleration qjsq265.49 msec MV A-wave Vmax 0.66 m/sec MV [...] Normal Mid-Posterolateral Normal Mid-Inferior Normal Mid-Inferoseptal Normal [place]-Septal Normal [place]-Anterior Normal [place]-Lateral Normal [place]-Inferior Normal [place]-Tip Normal TTE 01/12/21 1. A trivial pericardial [...] MV E-wave Vmax 0.52 m/sec MV deceleration pajl691.21 msec MV A-wave Vmax 0.41 m/sec MV [...] Normal Mid-Posterolateral Normal Mid-Inferior Normal Mid-Inferoseptal Normal [place]-Septal Normal [place]-Anterior Normal [place]-Lateral Normal [place]-Inferior Normal [place]-Tip Normal Pericardiocentesis 01/11/21 Conclusions: * Successful placement [...] 4:20 PM Jayne Rogel APRN Cardiology at [facility] Arrive at: Creative Technologist Area [phone] 02/05/2021 2:15 PM Mary Daley PA Cardiology at [facility] Arrive at: Creative Technologist Area [phone] General Instructions DISCHARGE INSTRUCTIONS FOLLOWING YOUR ABLATION [...] of any new medications initiated at the [facility]. The patient should be aware and [...] or the Cardiac Electrophysiology Service Triage Nurse ([phone], option 3). Patient Instructions Patient Instructions on [...] Center 01/17/2021 4:20 PM Jayne Rogel APRN [facility] CARD 4A [facility] 02/05/2021 2:15 PM Mary Daley PA [facility] CARD 4A [facility] PCP: Bin Bowman MD @ [phone] Receptionist Nurse: Will be assigned at the next cardiology appt Your Inpatient Medical Team at [facility] Name(s) of your inpatient provider(s): Jose Anand MD- Attending physician Thor Wills MD- Supervisor [place] Harini Jansen MD-Resident Physician Chavo Dominguez MD- Draughtsman Physician Call your doctor if: Chest pain, shortness of breath, pain or swelling in legs occurs. If you have non-emergent questions between now and the time of your follow up appointments: During 8am-5pm Friday through Friday call [phone] to speak with a nurse in the cardiology clinic All other times call [phone] and ask to speak to the border measurer and cutter electrical instrumentation technician. For questions regarding this document or issues relating to this hospitalization on the Medical Service, please contact your inpatient physician through the [facility] Field Gauger . Issues afterhours and on weekends will be handled by the Receptionist Nurse staff on-call. documented in this encounter Discharge [...] or the Cardiac Electrophysiology Service Triage Nurse ([phone], option 3). * Patient Instructions* Harini Jansen [...] Center 01/17/2021 4:20 PM Jayne Rogel APRN [facility] CARD 4A [facility] 02/05/2021 2:15 PM Mary Daley PA [facility] CARD 4A [facility] PCP: Bin Bowman MD @ [phone] Receptionist Nurse: Will be assigned at the next cardiology appt Your Inpatient Medical Team at [facility] Name(s) of your inpatient provider(s): Jose Anand MD- Attending physician Thor Wills MD- Supervisor [place] Harini Jansen MD-Resident Physician Chavo Dominguez MD- Draughtsman Physician Call your doctor if: Chest pain, shortness of breath, pain or swelling in legs occurs. If you have non-emergent questions between now and the time of your follow up appointments: During 8am-5pm Friday through Friday call [phone] to speak with a nurse in the cardiology clinic All other times call [phone] and ask to speak to the border measurer and cutter electrical instrumentation technician. documented in this encounter Medications at Time [...] Physical Therapy: 20 NAYAN GUERRERO, PT Pager: [phone] Physical Therapy Inpatient Rehabilitation Department * Tess [...] IVs and tele removed. Pt brought to [facility] in wheelchair by staff with belongings. [...] Dr. Jansen. Jose Anand MD, MPH, RPVI, [facility] Pager [phone] Cardiovascular Manager ProgrammingDirector Emergency [place] [address] * Mahogany Ferreira OT - 01/13/2021 12:16 PM EST Occupational Therapy Note 01/13/21 1214 OT Time and Intention Document Type contact Total Minutes, Occupational Therapy 0 Comment, Session Not Performed Order received. Chart reviewed. Spoke with both RN and PT. No acute OT needs. Pt mobilizing independently/supervised, and managing own ADLs. Will sign off. Mahogany Ferreira, OTR Pager [phone] * Nilsa Goldstein MD - 01/13/2021 10:45 AM EST Inpatient Cardiology Progress Note Patient Name: Rolo Aguilar Responsible Attending: Jose Anand MD EP Attending: Nilsa Goldstein MD Reason for continued hospitalization: Evaluation and management of pericardial effusion post ablation Active Problems: Active Hospital Problems Diagnosis ??? SVT (supraventricular tachycardia) Added automatically from request for surgery [id number] ??? PAF (paroxysmal atrial fibrillation) Added automatically from request for surgery [id number] ??? H/O cardiac radiofrequency ablation Resolved Hospital [...] HR: SR 70-100 with intermittent SVT/ atrial gkonccbqyak601-773 bpm. Meds: Scheduled Meds: ??? metoprolol tartrate [...] Zio. Maria M Hercules, BABAK 01/13/2021 Pager: [phone] Addendum Stable, overall condition appears to have [...] Note: Added automatically from request for surgery [id number] ??? Bipolar disorder ??? PAF (paroxysmal atrial fibrillation) Overview Note: Added automatically from request for surgery [id number] ??? Flutter-fibrillation ??? H/O cardiac radiofrequency ablation ??? Coronary disease Overview Note: ?? 2017: STEMI. PCI of OM1. EF 60%. Many ER visits to [facility] after this. ??? Heart palpitations [...] EKG - sinus rhythm rate 96 bpm. TX 154ms, QRS 94ms, QT 354 ms, QTc [...] Dr. Escobar for results. Maria M Hercules, MACHINE CUTTER 01/12/2021 Pager: [phone] Cardiac Electrophysiology Attending This patient was seen [...] 16.52) performed by Colt Hewitt MD at [facility] MAIN OR ??? PRO UPPER GI ENDOSCOPY, BIOPSY N/A 12/29/2017 UPPER GASTROINTESTINAL ENDOSCOPY,WITH BIOPSY SINGLE OR MULTIPLE (WRVU 2.49) performed by Yusuf Tucker MD at [facility] ENDOSCOPY ??? PRO UPPER GI ENDOSCOPY, DIAGNOSTIC N/A 12/29/2017 EGD, UPPER GI ENDOSCOPY performed by Yusuf Tucker MD at [facility] ENDOSCOPY ??? TONSILLECTOMY Active Non-Hospital Problems Diagnosis ??? Bipolar disorder ??? Flutter-fibrillation ??? Coronary disease ??? Heart palpitations ??? Obesity ??? Essential hypertension Social History: Pt resides with and mother in a house with 5 stairs to enter with L sided railing. Pt has a flt to basement where he resides with L sided railing. 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 Precautions/Special Considerations: Fall risk, lobato,chest tube,PIV,significant [...] Physical Therapy: 40 Macey Alarcon, PT Pager: [phone] Physical Therapy Inpatient Rehabilitation Department * Mark [...] return later. Will continue to follow. Mark Anthnoy Barrera OTR/Andie Pager: [phone] * Jose Anand MD - 01/12/2021 7:00 [...] Dr. Dominguez. Jose Anand MD, MPH, VI, [facility] Pager [phone] Cardiovascular Manager ProgrammingDirector Emergency Services[place] [address] * Nayan William RN - 01/12/2021 6:15 AM EST Loss of arterial line overnight. MD notified. Line d/c'd by FLAVIA Gregory, mikki held by this typewriter aligner. Non-invasive BP remains WNL. Pain and SOB continue to persist. MD at bedside several times. EKG done for TED on tele. Per MD, EKG consistent with [...] that he had been found to havea mrogz-kk-fpsnlgsn size pericardial effusion on echocardiogram during the [...] examined this patient and discussed with the international trade compliance manager, resident, fellow. I have personally reviewed the echocardiogram (initial and repeat) and discussed with Fadi Escobar from EP. While no clear evidence of tamponade, we will tap and leave drain in for fluid. Hold anticoagulation fornow. Judy Tijerina MD, Robinson, [facility] Cardiology Attending ID: Rolo Aguilar is a [...] room. 01/11/2021: 0220: [facility] Jami. Plans for transport per protocol on monitor withnurse assist. documented in this encounter H&P Notes * Judy Tijerina MD - 01/10/2021 9:24 PM EST Cardiology Admission History and Physical Patient Name: Rolo Aguilar Service: S1 Team Responsible Attending: Rayo Bianchi MD PCP: Bin Bowman MD PCP phone #: [phone] ID/Chief Complaint: Rolo Aguilar is a 50 [...] a total of 1.6 LR in the lab technologist. He was awakened from anesthesia, extubated and [...] ventricular segmental wall motion abnormalities present at [facility] inferolateral wall, as coded in the diagram [...] tachycardia) Added automatically from request for surgery [id number] ??? Bipolar disorder ??? PAF (paroxysmal atrial fibrillation) Added automatically from request for surgery [id number] ??? Flutter-fibrillation ??? H/O cardiac radiofrequency ablation ??? Coronary disease ?? 2017: STEMI. PCI of OM1. EF 60%. Many ER visits to [facility] after this. ??? Heart palpitations [...] PLAN: Admit to Cardiology, M1S1 Team Pager #[phone] #Post-Procedural Hypotension #Atrial Flutter s/p ablation #Hx [...] Diet - Code Status: Full - Dispo: [facility] Ernie Thrasher MD Internal Medicine PGY-2 I have seen and examined this patient and discussed with the international trade compliance manager, resident, fellow. Judy Tijerina MD, Robinson, [facility] Cardiology Attending * Fadi Escobar MD - 01/10/2021 10:24 AM EST Interval History and Physical Exam: Planned Procedure [facility] CARDIAC ELECTROPHYSIOLOGY LABORATORIES HISTORY OF PRESENT ILLNESS: Rolo Aguilar is a 50 y.o. man old gentleman referred by??Jose Culver MD, for several recent manifestly symptomatic cardiac dysrhythmias. Mr. Aguilar had presented on April 27 to the Emergency Department in [facility] with an episode of supraventricular tachycardia [...] 16.52) performed by Colt Hewitt MD at [facility] MAIN OR ??? PRO UPPER GI ENDOSCOPY, BIOPSY N/A 12/29/2017 UPPER GASTROINTESTINAL ENDOSCOPY,WITH BIOPSY SINGLE OR MULTIPLE (WRVU 2.49) performed by Yusuf Tucker MD at [facility] ENDOSCOPY ??? PRO UPPER GI ENDOSCOPY, DIAGNOSTIC N/A 12/29/2017 EGD, UPPER GI ENDOSCOPY performed by Yusuf Tucker MD at [facility] ENDOSCOPY ??? TONSILLECTOMY Accessory Clinical Findings: Laboratory [...] Procedure Note: Patient Name: Rolo Aguilar : [id number] MR#: [id number] Case Date: 01/11/2021 Field Gauger: Surgeon(s) and Role: * Erich Amato MD - Primary * Rachana Silver DO - Fellow Preoperative diagnosis: Pericardial drain placement Postoperative diagnosis: * Pre-tamponade * Procedure(s) performed: Pericardiocentesis Pericardial drain placement Access: Apical chest wall, just below the left breast; six south korean pigtail. A time-out was conducted prior to [...] spouse would be surrogate decision maker per [place] surrogate decision making law. (Only good for 90 days) Any patient receiving care at [facility] must abide by [place] law. The hierarchy for surrogate decision making [...] The agent with financial power of insurance defense attorney or a conservator appointed in accordance with RSA 464-A. (j) The guardian of the patient???s estate. Current Functional Ability: Current Functional Status: Independent Functional Status Prior to Admission: Prior Functional Status: Independent Home Environment: People in Home: spouse. Living Arrangements: house. Current DME: None DME Needed at DC: None Home Address Listed as: [address] [place] [address] Social & Family Supports: Extended Emergency Contact Information Primary Emergency Contact: Autumn Aguilar Address: [address] [place], [place] [address] [place] [address] Mobile Relation: Spouse Secondary Emergency Contact: Whitney Piedra Address: [address] [place] [address] [facility] Relation: Sibling Community Resources being provided currently: [...] Insurance: N/A Prescription Coverage: yes Preferred Pharmacy: [facility]/pharmacy #[id number] - [place], [place] - [address] [facility] [address] [facility] [place], [place] [address] [facility] [address] [facility] [address] [place], [place] [address] [facility] [address] [facility] [address] [id number] [address] [facility] [place] [address] [facility] [address] [address] [address] Primary Care Provider: Bin Bowman MD [phone] Patient/Caregiver Goals of Treatment: [place] home Potential Needs for Transition of Care: [...] care planning. Chanell D Fatima, RN, MSN, senior data developer Office of Care Management Pager: [phone] Work * Brief Op Note - Fadi Escobar MD - 01/10/2021 7:27 PM EST Brief Operative Note Patient Name: Rolo Aguilar : [id number] MR#: [id number] Case Date: 01/10/2021 Surgeon: Surgeon(s) and Role: [...] were issues with initial functionality of the KwicrisKlick[employer] system, the EP-4 stimulator, and the lateral [...] rate of 2500 units/hour. The short 8 Trinidadian sheaths in the right femoral vein were [...] of 1110 milliseconds (ms) were as follows: TX: 180 ms (P wave duration 140 ms) QRS: 100 ms QT: 480 ms 2) Atrial overdrive pacing was accomplished from the proximal-most bipole in the coronary sinus (CS), and the atrioventricular (AV) Wenckebach block CL was observed at 410 ms. There was no pre-excitation or conduction aberrancy identified. 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 Left Atrial Anatomy and Mapping: A CARTO ImmuMetrix ThermoCool SF 8 Fr ablation catheter with [...] to thesuperior margin delivering up to 30-35 montse. After that, the SF ablation catheter was [...] the targeted delivery of a [place] 16491 Joules during minutes:seconds of actual ablation time, [...] (and/or limitations of familiarity) with the recently installedClGranData mapping system. Mitral Annular Flutter Induction, Mapping, [...] Dose: 681 mGy Total Radiofrequency Energy Delivered: 106242 Joules Total Actual Ablation Time: 50:31 m:s [...] revealed that he had developed a s qmov-me-ykeqofqg effusion with restricted filling (though not overt right atrial collapse). A pericardiocentesis subsequently was performed with a 300 cc of bloody fluid removed (please see separte report by Erich Amato MD), and the blood pressure reverted to baseline values; a 6 Trinidadian pericardial drain was placed, but there was no significant fluid reaccumulation. documented in this encounter Plan of Treatment Upcoming Encounters Date Type Department Care Team (Late st Contact Info) Description 06/23/2024 10:00 AM EDT Office Visit Cardiology at [address] [place] [address] Nilsa Goldstein MD [facility] [place] [address] 09/21/2024 10:[address] [place] [address] Rachel Carrasco MD [facility] [place] [address] 09/21/2024 11:00 AM EST Office [place] [address] Rachel Carrasco MD [facility] [place] [address] Pending Results Name Type Priority Associated Diagnoses Date /Time EKG 12 Lead ECG Routine PAF (paroxysmal atrial fibrillation) 01/13/2021 8:06 AM EST documented as of this encounter Procedures Procedure [...] 01/11/2021 2:1 3 AM EST LACTATE, WHOLE BLOOD STAT 01/11/2021 2:05 AM EST EKG 12-LEAD [...] Routine 9:55 PM EST BASIC METABOLIC PANEL Routine 01/10/2021 9:55 PM EST ELECTROPHYSIOLOGY PROCEDURE Routine 01/10/2021 6:28 PM EST SVT (supraventricular tachycardia) POINT OF CARE BLOOD GAS HISTORICAL Routine 01/10/2021 4:20 PM EST RAPID COVID-19 PCR (MH/APD/NLH) Routine 01/10/2021 12:32 PM EST documented in this encounter Results * ECHO COMPLETE (01/13/2021 11:03 AM EST) Anatomical Region Laterality Modality Other 01/13/2021 Narrative 01/13/2021 11:38 AM EST Procedure: ?Transthoracic Echocardiogram Patient: ?ISAAC SHERWOOD M ?(Age): 1970(50y) Med Rec#: ? [id number] ?Sex: ?M ? Site Loc: ? [facility] ?Ht / Wt: ??168(cm)/198(kg) Pt. Loc: ?Adult Floor ? BSA: ?2.79 Study Date: ?? 01/13/2021 ?Pt. Type: Inpatient Tape: ? Referring: Jose Anand ??([id number]) Reading: Joss De Anda ([id number]) Printing Screen Assembler: Shahriar Juan RDCS, [place] Diagnosis: *Pericardial [...] Vmax ?0.94 ? m/sec ? MV deceleration hztu548.49 ? msec ? MV A-wave Vmax ?0.66 [...] ? Mid-Inferior ?Normal ? Mid-Inferoseptal ?Normal ? [place]-Septal ? Normal ? [place]-Anterior ? Normal ? [place]-Lateral ?Normal ? [place]-Inferior ? Normal ? [place]-Tip ?Normal ? This report has been electronically signed by: Joss De Anda MD ? 01/13/2021 11:37:34 Images reviewed and interpretation verified [facility] Cardiac Ultrasound Laboratory Procedure Note Joss De Anda MD - 01/13/2021 Procedure: Transthoracic Echocardiogram Patient: ISAAC Rodney (Age): 1970(50y) Med Rec#: [id number] Sex: M Site Loc: [facility] Ht / Wt: 168(cm)/198(kg) Pt. Loc: Adult Floor BSA: 2.79 Study Date: 01/13/2021 Pt. Type: Inpatient Tape: Referring: Jose Anand ([id number]) Reading: Joss De Anda ([id number]) Printing Screen Assembler: Shahriar Juan RDCS, FASE Diagnosis: *Pericardial [...] MV E-wave Vmax 0.94 m/sec MV deceleration iapy302.49 msec MV A-wave Vmax 0.66 m/sec MV [...] Normal Mid-Posterolateral Normal Mid-Inferior Normal Mid-Inferoseptal Normal [place]-Septal Normal [place]-Anterior Normal [place]-Lateral Normal [place]-Inferior Normal [place]-Tip Normal This report has been electronically signed by: Joss De Anda MD 01/13/2021 11:37:34 Images reviewed and interpretation verified [facility] Cardiac Ultrasound Laboratory Jsoe Anand MD ECHO ORDERABLES * EKG 12 Lead (01/13/2021 8:06 AM EST) Ventricular rate 141 BPM MUSE SYSTEM Atrial Rate 141 BPM MUSE SYSTEM P-R Interval 146 ms MUSE SYSTEM QRS Duration 94 ms MUSE SYSTEM Q-T Interval 266 ms MUSE SYSTEM QTC Calculated (Bezet) 407 ms MUSE SYSTEM Calculated P [place] 55 degrees MUSE SYSTEM Calculated R [place] 28 degrees MUSE SYSTEM Calculated T [place] 54 degrees MUSE SYSTEM INTERPRETATION Sinus tachycardia Low voltage QRS Possible Inferior infarct (cited on or before 13-JAN-2021) Abnormal ECG When compared with ECG of 12-JAN-2021 00:07, Diffuse ST-elevations have resolved, and there are now diffuse TWI, consistent with resolving pericarditis Confirmed by MD De Anda Daniel ([id number]) on 01/13/2021 12:29:23 PM MUSE SYSTEM 01/13/2021 8:06 AM EST 01/13/2021 12:29 PM EST Jose Anand MD ECG ORDERABLES MUSE SYSTEM * (ABNORMAL) Differential, Automated (01/13/2021 5:30 AM EST) Neutrophil % 71.0 % [facility] Neutrophil Absolute 8.18(H) 1.70 - 6.10 x10(3)/ L [facility] Lymph % 16.6 % [facility] Lymphocytes Abs 1.9 0.9 - 3.2 x10(3)/[facility] LABORATORY Monocyte % 10.7 % [facility] Monocyte Abs 1.2(H) 0.3 - 0.9 x10(3)/[facility] LABORATORY Eos % 0.5 % [facility] Eosinophils Abs 0.1 0.0 - 0.4 x10(3)/[facility] LABORATORY Basophil % 0.3 % [facility] Baso Absolute 0.0 0.0 - 0.1 x10(3)/[facility] LABORATORY Immature Gran % 0.90 % [facility] Comment: Immature granulocytes(IG's)percentage and absolute count will include metamyelocytes, myelocytes, and promyelocytes. Blood smears from CBCs yielding IG's will be scanned manually for concordance. If this scan disagrees with the automated IG or if promyelocytes are noted, a manual differential will be performed. Immature Gran Absolute 0.10(H) 0.00 - 0.04 x10(3)/ L [facility] Blood specimen (specimen) 01/13/2021 5:30 AM EST 01/13/2021 5:44 AM EST Narrative Resulting Agency Comment Spec In Lab Harini Jansen MD HEMATOLOGY ORDERABLE S [facility] [place] [address] * (ABNORMAL) Hemogram (01/13/2021 5:30 AM EST) [facility] White Blood Cell 11.5(H) 4.0 - 9.5 x10(3)/mc L [facility] Red Blood Cell 4.11(L) 4.58 - 5.54 x10(6)/mc L [facility] Hemoglobin 11.4(L) 13.7 - 16.5 gm/dL [facility] Hematocrit 35.1(L) 40.5 - 48.5 % [facility] Mean Cell Volume 85.4 82.9 - 93.1 fL [facility] Mean Cell Hemoglobin 27.7 27.5 - 32.1 pg [facility] Mean Cell Hemoglobin Concentration 32.5 32.0 - 35.7 gm/dL [facility] Platelet 122(L) 145 - 357 x10(3)/mc L [facility] RDW Standard Deviation 44.7 36.0 - 45.0 [facility] LABORATORY RDW coefficient of variation 14.6(H) 11.4 - 13.8 % [facility] Mean Platelet Volume 10.6 7.6 - 12.9 fL [facility] NRBC% auto 0.0 % [facility] NRBC Absolute 0.000 0.000 - 0.000 x10(3)/ L [facility] Blood specimen (specimen) 01/13/2021 5:30 AM EST 01/13/2021 5:44 AM EST Narrative Resulting Agency Comment Spec In Lab Harini Jansen MD HEMATOLOGY ORDERABLE S [facility] [address] * Magnesium (01/13/2021 5:30 AM EST) [facility] Magnesium 0.92 0.69 - 1.07 mmol/L [facility] Blood specimen (specimen) 01/13/2021 5:30 AM EST 01/13/2021 5:45 AM EST Narrative Resulting Agency Comment Spec In Lab Jose Anand MD CHEMISTRY ORDERABLES [facility] [place] [address] * (ABNORMAL) BMP w/fasting Glucose (01/13/2021 5:30 AM EST) Glucose Fasting 92 65 - 99 mg/dL [facility] Comment: ?Fasting* Glucose Interpretive Criteria [...] of Diabetes Mellitus, Position Statement from the [place] [employer]. ??Diabetes Care, Volume 33, Supplement 1, Nov 2009 Blood Urea Nitrogen 14 10 - 20 mg/dL [facility] Creatinine 0.83 0.80 - 1.50 mg/dL [facility] Sodium 135 135 - 145 mmol/L [facility] Potassium 3.8 3.5 - 5.0 mmol/L [facility] Comment: result rechecked- Please note: ??Patients with WBC >100,000 may have falsely elevated Potassium levels. ??For accurate Potassium quantification in these patients send serum separator tube (gold top) for subsequent determinations. ??Contact the Clinical Chemistry Laboratory if there are any questions. Chloride 103 98 - 107 mmol/L [facility] Carbon Dioxide 22 22 - 31 mmol/L [facility] Anion Gap 10 5 - 15 mmol/L [facility] Calcium 8.2(L) 8.5 - 10.5 mg/dL [facility] Est Glomerular Filtration Rate 102 >=60 mL/min/1. 73 m?? [facility] Comment: This patient? s estimated [...] In Lab Judy Tijerina MD CHEMISTRY ORDERABLES [facility] [place] [address] * ECHO LMTD W/O CONTRAST W LMTD SPEC DOPP (01/12/2021 11:08 AM EST) EF 70 HEARTLAB SYSTEM Anatomical Region Laterality Modality Other 01/12/2021 Narrative 01/12/2021 11:42 AM EST Procedure: ?Transthoracic Echocardiogram Patient: ?ISAAC SHERWOOD M ?(Age): 1970(50y) Med Rec#: ? [id number] ?Sex: ?M ? Site Loc: ? [facility] ?Ht / Wt: ??168(cm)/198(kg) Pt. Loc: ?Adult Floor ? BSA: ?2.79 Study Date: ?? 01/12/2021 ?Pt. Type: Inpatient Tape: ? Referring: Thor Wills ([id number]) Referring: Judy Tijerina Reading: Roxana Mesa ([id number]) Printing Screen Assembler: Willie Dugan [facility] Printing Screen Assembler 2: Suzy Randolph Diagnosis: *Pericardial effusion [...] ? Mid-Inferior ?Normal ? Mid-Inferoseptal ?Normal ? [place]-Septal ? Normal ? [place]-Anterior ? Normal ? [place]-Lateral ?Normal ? [place]-Inferior ? Normal ? [place]-Tip ?Normal ? This report has been electronically signed by: Roxana Mesa MD ? 01/12/2021 11:42:18 Images reviewed and interpretation verified [facility] Cardiac Ultrasound Laboratory Procedure Note Roxana Mesa MD - 01/12/2021 Procedure: Transthoracic Echocardiogram Patient: ISAAC Rodney DOB(Age): 1970(50y) Med Rec#: [id number] Sex: M Site Loc: [facility] Ht / Wt: 168(cm)/198(kg) Pt. Loc: Adult Floor BSA: 2.79 Study Date: 01/12/2021 Pt. Type: Inpatient Tape: Referring: Thor Wills ([id number]) Referring: Judy Tijerina Reading: Roxana Mesa ([id number]) Printing Screen Assembler: Willie Dugan [facility] Printing Screen Assembler 2: Suzy Randolph Diagnosis: *Pericardial effusion [...] Normal Mid-Posterolateral Normal Mid-Inferior Normal Mid-Inferoseptal Normal [place]-Septal Normal [place]-Anterior Normal [place]-Lateral Normal [place]-Inferior Normal [place]-Tip Normal This report has been electronically signed by: Roxana Mesa MD 01/12/2021 11:42:18 Images reviewed and interpretation verified [facility] Cardiac Ultrasound Laboratory Judy Tijerina MD ECHO ORDERABLES * Scan, Peripheral Blood (01/12/2021 8:19 AM EST) Plat estimate Normal [facility] RBC Morphology Abnormal [facility] Ovalocytes 1-5 /HPF [facility] Claritza Cells 1-5 /HPF [facility] Vacuolated Neut Present [facility] Blood specimen (specimen) 01/12/2021 8:19 AM EST 01/12/2021 8:36 AM EST Narrative Resulting Agency Comment Spec In Lab Harini Jansen MD HEMATOLOGY ORDERABLE S [facility] [place] [address] * (ABNORMAL) Differential, Automated (01/12/2021 8:19 AM EST) Neutrophil % 71.6 % [facility] Neutrophil Absolute 13.82(H) 1.70 - 6.10 x10(3)/mc L [facility] Lymph % 7.9 % [facility] Lymphocytes Abs 1.5 0.9 - 3.2 x10(3)/mc L [facility] Monocyte % 8.4 % [facility] Monocyte Abs 1.6(H) 0.3 - 0.9 x10(3)/mc L [facility] Eos % 11.3 % [facility] Eosinophils Abs 2.2(H) 0.0 - 0.4 x10(3)/mc L [facility] Basophil % 0.2 % [facility] Baso Absolute 0.0 0.0 - 0.1 x10(3)/mc L [facility] Immature Gran % 0.60 % [facility] Comment: Immature granulocytes(IG's)percentage and absolute count will include metamyelocytes, myelocytes, and promyelocytes. Blood smears from CBCs yielding IG's will be scanned manually for concordance. If this scan disagrees with the automated IG or if promyelocytes are noted, a manual differential will be performed. Immature Gran Absolute 0.12(H) 0.00 - 0.04 x10(3)/ L [facility] Blood specimen (specimen) 01/12/2021 8:19 AM EST 01/12/2021 8:36 AM EST Narrative Resulting Agency Comment Spec In Lab Harini Jansen MD HEMATOLOGY ORDERABLE S [facility] [place] [address] * (ABNORMAL) Hemogram (01/12/2021 8:19 AM EST) White Blood Cell 19.3(H) 4.0 - 9.5 x10(3)/ L [facility] Red Blood Cell 4.48(L) 4.58 - 5.54 x10(6)/[facility] Hemoglobin 12.5(L) 13.7 - 16.5 gm/dL [facility] Hematocrit 38.9(L) 40.5 - 48.5 % [facility] Mean Cell Volume 86.8 82.9 - 93.1 [facility] Mean Cell Hemoglobin 27.9 27.5 - 32.1 pg [facility] Mean Cell Hemoglobin Concentration 32.1 32.0 - 35.7 gm/dL [facility] Platelet 179 145 - 357 x10(3)/ L [facility] RDW Standard Deviation 46.8(H) 36.0 - 45.0 [facility] RDW coefficient of variation 14.8(H) 11.4 - 13.8 % [facility] Mean Platelet Volume 9.9 7.6 - 12.9 [facility] NRBC% auto 0.0 % [facility] NRBC Absolute 0.000 0.000 - 0.000 x10(3)/ L [facility] Blood specimen (specimen) 01/12/2021 8:19 AM EST 01/12/2021 8:36 AM EST Narrative Resulting Agency Comment Spec In Lab Harini Jansen MD HEMATOLOGY ORDERABLE S Performing Organization Address City/[facility]/ZIP Co de Phone Number [facility] [place] [address] * Magnesium (01/12/2021 3:55 AM EST) Magnesium 0.95 0.69 - 1.07 mmol/L [facility] Comment:result rechecked-peg Blood specimen (specimen) Venous Draw / Unknown 01/12/2021 3:55 AM EST 01/12/2021 4:03 AM EST Narrative Resulting Agency Comment Spec In Lab Harini Jansen MD CHEMISTRY ORDERABLES Performing Organization Address [facility] Co de Phone Number [facility] [place] [address] * (ABNORMAL) BMP w/fasting Glucose (01/12/2021 3:55 AM EST) Glucose Fasting 126(H) 65 - 99 mg/dL [facility] Comment: ?Fasting* Glucose Interpretive Criteria [...] of Diabetes Mellitus, Position Statement from the [place] [employer]. ??Diabetes Care, Volume 33, Supplement 1, Nov 2009 Blood Urea Nitrogen 18 10 - 20 mg/dL [facility] Creatinine 0.91 0.80 - 1.50 mg/dL [facility] Sodium 135 135 - 145 mmol/L [facility] Potassium 5.0 3.5 - 5.0 mmol/L [facility] Comment: Please note: ??Patients with WBC >100,000 may have falsely elevated Potassium levels. ??For accurate Potassium quantification in these patients send serum separator tube (gold top) for subsequent determinations. ??Contact the Clinical Chemistry Laboratory if there are any questions. Chloride 104 98 - 107 mmol/L [facility] Carbon Dioxide 22 22 - 31 mmol/L [facility] Anion Gap 9 5 - 15 mmol/L [facility] Calcium 8.2(L) 8.5 - 10.5 mg/dL [facility] Est Glomerular Filtration Rate 97 >=60 mL/min/1. 73 m?? [facility] Comment: This patient? s estimated [...] In Lab Judy Tijerina MD CHEMISTRY ORDERABLES [facility] [place] [address] * EKG 12 Lead (01/12/2021 12:07 AM EST) Ventricular rate 96 BPM MUSE SYSTEM Atrial Rate 96 BPM MUSE SYSTEM P-R Interval 154 ms MUSE SYSTEM QRS Duration 94 ms MUSE SYSTEM Q-T Interval 354 ms MUSE SYSTEM QTC Calculated (Bezet) 447 ms MUSE SYSTEM Calculated P [place] 44 degrees MUSE SYSTEM Calculated R [place] 16 degrees MUSE SYSTEM Calculated T [place] 23 degrees MUSE SYSTEM INTERPRETATION Normal sinus rhythm Diffuse ST elevation, consider early repolarization, pericarditis, or injury Abnormal ECG When compared with ECG of 11-JAN-2021 06:29, Acute pericarditis is suspected. I personally reviewed the tracing and edited the fellows interpretation Confirmed by fellow Fernandez Higuera ([id number]) on 01/12/2021 9:35:13 AM Confirmed by Vini Chanel ([id number]) on 01/12/2021 5:29:51 PM MUSE SYSTEM 01/12/2021 12:0 7 AM EST 01/12/2021 5:29 PM EST Judy Tijerina MD ECG ORDERABLES MUSE SYSTEM * CARDIAC CATHETERIZATION (01/11/2021 2:33 PM EST) Anatomical Region Laterality Modality Other Narrative 01/11/2021 2:49 PM EST ?[facility] ? Cardiac Catheterization/Intervention Report ? Patient Name: Rolo Aguilar ? Procedure Date: 01/11/2021 ? A #: [id number] ? Primary Physician: Genesis, Erich T ? Case #: [id number] ? File Name: [id number] ? Catheterization Order Number: [id number] ? [facility] ? Final Report [place], [place] ? Patient Name: ? Rolo M Isaac ? ID#: ?[id number] ? : ?1970 ? Procedure Date: ? [...] pericardiocentesis and ?transthoracic echo . ? Erich Kennedyries, M.D. ? Electronically Signed by: Erich Kennedyries, M.D. ? Report Finalized: 01/11/2021 ??14:44 ? Procedure Note Erich Amato MD - 01/11/2021 [facility] Cardiac Catheterization/Intervention Report Patient Name: Rolo Aguilar Procedure Date: 01/11/2021 A #: [id number] Primary Physician: Erich Amato Case #: [id number] File Name: [id number] Catheterization Order Number: [id number] [facility] FinalReport [place], [place] Patient Name: Rolo Aguilar ID#:[id number] :1970 Procedure Date: January 11, 2021 Case [...] * Lactate, whole blood, send to lab ([facility]) (01/11/2021 1:10 PM EST) Pathologist [facility] Lactate WB 2.1 0.5 - 2.2 mmol/L [facility] Blood specimen (specimen) 01/11/2021 1:10 PM EST 01/11/2021 1:25 PM EST Narrative Resulting Agency Comment Spec In Lab Judy Tijerina MD CHEMISTRY ORDERABLES [facility] [place] [address] * ECHO COMPLETE W CONTRAST (01/11/2021 10:21 AM EST) EF 63 HEARTLAB SYSTEM Anatomical Region Laterality Modality Other 01/11/2021 Narrative 01/11/2021 11:10 AM EST Procedure: ?Transthoracic Echocardiogram Patient: ?ISAAC Rodney ?(Age): 1970(50y) Med Rec#: ? [id number] ?Sex: ?M ? Site Loc: ? [facility] ?Ht / Wt: ??167(cm)/185(kg) Pt. Loc: ?Adult Floor ? BSA: ?2.7 Study Date: ?? 01/11/2021 ?Pt. Type: Inpatient Tape: ? Referring: Rayo Bianchi ([id number]) Reading: Khurram Barillas ([id number]) Printing Screen Assembler: Viola Moore Printing Screen Assembler 2: Humza Wilson ([id number]) Interpreting Fellow: Humza Wilson ([id number]) Diagnosis: *Supraventricular tachycardia (I47.1) *1 vial Optison [...] Vmax ?0.52 ? m/sec ? MV deceleration [id number] ? msec ? MV A-wave Vmax ?0.41 [...] ? Mid-Inferior ?Normal ? Mid-Inferoseptal ?Normal ? [place]-Septal ? Normal ? [place]-Anterior ? Normal ? [place]-Lateral ?Normal ? [place]-Inferior ? Normal ? [place]-Tip ?Normal ? This report has been electronically signed by: Khurram Barillas MD ? 01/11/2021 11:04:46 Images reviewed and interpretation verified [facility] Cardiac Ultrasound Laboratory Procedure Note Khurram Barillas MD - 01/11/2021 Procedure: Transthoracic Echocardiogram Patient: ISAAC Rodney (Age): 1970(50y) Med Rec#: [id number] Sex: M Site Loc: [facility] Ht / Wt: 167(cm)/185(kg) Pt. Loc: Adult Floor BSA: 2.7 Study Date: 01/11/2021 Pt. Type: Inpatient Tape: Referring: Rayo Bianchi ([id number]) Reading: Khurram Barillas ([id number]) Printing Screen Assembler: Viola Moore Printing Screen Assembler 2: Humza Wilson ([id number]) Interpreting Fellow: Humza Wilson ([id number]) Diagnosis: *Supraventricular tachycardia (I47.1) *1 vial Optison [...] MV E-wave Vmax 0.52 m/sec MV deceleration [id number] msec MV A-wave Vmax 0.41 m/sec MV [...] Normal Mid-Posterolateral Normal Mid-Inferior Normal Mid-Inferoseptal Normal [place]-Septal Normal [place]-Anterior Normal [place]-Lateral Normal [place]-Inferior Normal [place]-Tip Normal This report has been electronically signed by: Khurram Barillas MD 01/11/2021 11:04:46 Images reviewed and interpretation verified [facility] Cardiac Ultrasound Laboratory Rayo Bianchi MD ECHO ORDERABLES * XR Chest One View (01/11/2021 10:18 AM EST) Anatomical Region Laterality Modality Chest N/A Digital Radiogra phy Impressions 01/11/2021 10:36 AM EST Hypoinflation with bibasilar atelectasis Thank you for letting us participate in the care of this patient. For questions regarding this report, please contact the number below. ? Narrative 01/11/2021 10:36 AM EST EXAMINATION: XR [...] this report, please contact the number below. Rayo Bianchi MD IMG DX ORDERABLES * POCT Glucose (01/11/2021 7:45 AM EST) [facility] Glucose, POC 136 65 - 199 mg/dL [facility] Comment: Supplemental ranges: <140 mg/dL before meals <180 mg/dL all other times of the day Blood specimen (specimen) 01/11/2021 7:45 AM EST 01/11/2021 7:45 AM EST Judy Tijerina MD POINT OF CARE TEST O RDERABLES Performing Organization Address City/State/[facility] Co de Phone Number [facility] [place] [phone] * (ABNORMAL) Differential, Automated (01/11/2021 7:40 AM EST) [facility] Neutrophil % 85.3 % [facility] Neutrophil Absolute 11.24(H) 1.70 - 6.10 x10(3)/mc L [facility] Lymph % 8.5 % [facility] Lymphocytes Abs 1.1 0.9 - 3.2 x10(3)/mc L [facility] Monocyte % 5.5 % [facility] Monocyte Abs 0.7 0.3 - 0.9 x10(3)/mc L [facility] Eos % 0.0 % [facility] Eosinophils Abs 0.0 0.0 - 0.4 x10(3)/mc L [facility] Basophil % 0.1 % [facility] Baso Absolute 0.0 0.0 - 0.1 x10(3)/ L [facility] Immature Gran % 0.60 % [facility] Comment: Immature granulocytes(IG's)percentage and absolute count will include metamyelocytes, myelocytes, and promyelocytes. Blood smears from CBCs yielding IG's will be scanned manually for concordance. If this scan disagrees with the automated IG or if promyelocytes are noted, a manual differential will be performed. Immature Gran Absolute 0.08(H) 0.00 - 0.04 x10(3)/ L [facility] Blood specimen (specimen) 01/11/2021 7:40 AM EST 01/11/2021 7:58 AM EST Narrative Resulting Agency Comment Spec In Lab Harini Jansen MD HEMATOLOGY ORDERABLE S Performing Organization Address City/State/[facility] Co de Phone Number [facility] [place] [address] * (ABNORMAL) Hemogram (01/11/2021 7:40 AM EST) White Blood Cell 13.2(H) 4.0 - 9.5 x10(3)/[facility] Red Blood Cell 4.87 4.58 - 5.54 x10(6)/ L [facility] Hemoglobin 13.7 13.7 - 16.5 gm/dL [facility] Hematocrit 42.2 40.5 - 48.5 % [facility] Mean Cell Volume 86.7 82.9 - 93.1 fL [facility] Mean Cell Hemoglobin 28.1 27.5 - 32.1 pg [facility] Mean Cell Hemoglobin Concentration 32.5 32.0 - 35.7 gm/dL [facility] Platelet 224 145 - 357 x10(3)/ L [facility] RDW Standard Deviation 45.8(H) 36.0 - 45.0 fL [facility] RDW coefficient of variation 14.3(H) 11.4 - 13.8 % [facility] Mean Platelet Volume 10.7 7.6 - 12.9 fL [facility] NRBC% auto 0.0 % [facility] NRBC Absolute 0.000 0.000 - 0.000 x10(3)/mc L [facility] Blood specimen (specimen) 01/11/2021 7:40 AM EST 01/11/2021 7:58 AM EST Narrative Resulting Agency Comment Spec In Lab Harini Jansen MD HEMATOLOGY ORDERABLE S [facility] [place] [address] * (ABNORMAL) BMP w/fasting Glucose (01/11/2021 7:40 AM EST) Glucose Fasting 155(H) 65 - 99 mg/dL [facility] Comment: ?Fasting* Glucose Interpretive Criteria [...] of Diabetes Mellitus, Position Statement from the [place] [employer]. ??Diabetes Care, Volume 33, Supplement 1, Nov 2009 Blood Urea Nitrogen 15 10 - 20 mg/dL [facility] Creatinine 0.86 0.80 - 1.50 mg/dL [facility] Sodium 134(L) 135 - 145 mmol/L [facility] Potassium 4.9 3.5 - 5.0 mmol/L [facility] Comment: Please note: ??Patients with WBC >100,000 may have falsely elevated Potassium levels. ??For accurate Potassium quantification in these patients send serum separator tube (gold top) for subsequent determinations. ??Contact the Clinical Chemistry Laboratory if there are any questions. Chloride 104 98 - 107 mmol/L [facility] Carbon Dioxide 19(L) 22 - 31 mmol/L [facility] Anion Gap 11 5 - 15 mmol/L [facility] Calcium 8.1(L) 8.5 - 10.5 mg/dL [facility] Est Glomerular Filtration Rate 100 >=60 mL/min/1. 73 m?? [facility] Comment: This patient? s estimated [...] Tijerina MD CHEMISTRY ORDERABLES Performing Organization Address City/[facility]/ZIP Co de Phone Number [facility] [place] [address] * (ABNORMAL) Lactate, whole blood, send to lab ([facility]) (01/11/2021 7:40 AM EST) Lactate WB 2.7(H) 0.5 - 2.2 mmol/L [facility] Blood specimen (specimen) 01/11/2021 7:40 AM EST 01/11/2021 8:00 AM EST Narrative Resulting Agency Comment Spec In Lab Judy Tijerina MD CHEMISTRY ORDERABLES [facility] [place] [address] * (ABNORMAL) Hepatic Function Panel (01/11/2021 6:40 AM EST) [facility] Protein, Total 5.9(L) 6.1 - 8.0 gm/dL [facility] Albumin 3.3 3.2 - 5.2 gm/dL [facility] Aspartate Aminotransferase 47(H) 0 - 39 unit/L [facility] Alanine Aminotransferase 40 0 - 55 unit/L [facility] Alkaline Phosphatase 47 40 - 130 unit/L [facility] Bilirubin, Total 0.4 0.2 - 1.3 mg/dL [facility] Bilirubin, Direct 0.1 0.0 - 0.3 mg/dL [facility] Blood specimen (specimen) Venous Draw / Unknown 01/11/2021 6:40 AM EST 01/11/2021 6:48 AM EST Narrative Resulting Agency Comment Spec In Lab Harini Jansen MD CHEMISTRY ORDERABLES [facility] [place] [address] * (ABNORMAL) Troponin (01/11/2021 6:40 AM EST) [facility] Troponin-T 1.06(H) 0.00 - 0.00 ng/mL [facility] Comment: The 99th percentile for [...] ischemia ?? New or presumed new significant TJ-fvltame-F wave (ST-T) changes or new left bundle [...] additional sample may be indicated. Reference: Third [place] Definition of Myocardial Infarction. Journal of the [place] [employer] 2012;60:1581-98 Blood specimen (specimen) 01/11/2021 6:40 AM EST 01/11/2021 6:47 AM EST Narrative Resulting Agency Comment Spec In Lab Rayo Bianchi MD CHEMISTRY ORDERABLES Performing Organization Address [facility] Co de Phone Number [facility] [place] [address] * EKG 12 Lead (01/11/2021 6:29 AM EST) Ventricular rate 101 BPM MUSE SYSTEM Atrial Rate 101 BPM MUSE SYSTEM P-R Interval 150 ms MUSE SYSTEM QRS Duration 88 ms MUSE SYSTEM Q-T Interval 360 ms MUSE SYSTEM QTC Calculated (Bezet) 466 ms MUSE SYSTEM Calculated P [place] 46 degrees MUSE SYSTEM Calculated R [place] 47 degrees MUSE SYSTEM Calculated T [place] 29 degrees MUSE SYSTEM INTERPRETATION Sinus tachycardia Low voltage QRS Borderline ECG When compared with ECG of 11-JAN-2021 01:59, (unconfirmed) No significant change was found Confirmed by MD Alecia, Ruperto Moya ([id number]) on 01/11/2021 5:10:03 PM MUSE SYSTEM 01/11/2021 6:29 AM EST 01/11/2021 5:10 PM EST Rayo Bianchi MD ECG ORDERABLES Performing Organization Address [facility] Co de Phone Number MUSE SYSTEM * Blood culture (01/11/2021 4:51 AM EST) Blood Culture No growth at 5 days. [facility] Blood specimen (specimen) STRUCTURE OF RIGHT HAND / Unknown 01/11/2021 4:51 AM EST 01/11/2021 6:43 AM EST Comment:SET 2 Narrative Resulting Agency Comment Spec In Lab Fadi Escobar MD MICROBIOLOGY - BLOOD ORDERABLES Performing Organization Address City/[facility]/ZIP Co de Phone Number [facility] [place] [address] * Blood culture (01/11/2021 4:30 AM EST) Blood Culture No growth at 5 days. [facility] Blood specimen (specimen) STRUCTURE OF RIGHT HAND / Unknown 01/11/2021 4:30 AM EST 01/11/2021 6:44 AM EST Narrative Resulting Agency Comment Spec In Lab Fadi Escobar MD MICROBIOLOGY - BLOOD ORDERABLES Performing Organization Address [facility] [place] [address] * XR Chest One View (01/11/2021 2:13 [...] this report, please contact the number below. Rayo Bianchi MD IMG DX ORDERABLES * (ABNORMAL) Lactate, whole blood, send to lab ([facility]) (01/11/2021 2:05 AM EST) Pathologist [facility] Lactate WB 3.5(H) 0.5 - 2.2 mmol/L [facility] Blood specimen (specimen) Venous Draw / Unknown 01/11/2021 2:05 AM EST 01/11/2021 2:14 AM EST Narrative Resulting Agency Comment Spec In Lab Ernie Thrasher MD CHEMISTRY ORDER BELEN [facility] [place] [address] * EKG 12 Lead (01/11/2021 1:59 AM EST) Pathologist [facility] Ventricular rate 96 BPM MUSE SYSTEM Atrial Rate 96 BPM MUSE SYSTEM P-R Interval 148 ms MUSE SYSTEM QRS Duration 84 ms MUSE SYSTEM Q-T Interval 366 ms MUSE SYSTEM QTC Calculated (Bezet) 462 ms MUSE SYSTEM Calculated P [place] 52 degrees MUSE SYSTEM Calculated R [place] 60 degrees MUSE SYSTEM Calculated T [place] 19 degrees MUSE SYSTEM INTERPRETATION Normal sinus rhythm Baseline artifact Normal ECG When compared with ECG of 17-DEC-2020 02:40, Sinus rhythm has replaced Atrial fibrillation I personally reviewed the tracing and edited the fellows interpretation Confirmed by fellow Fernandez Higuera ([id number]) on 01/11/2021 10:24:41 AM Confirmed by Vini Chanel ([id number]) on 01/12/2021 5:28:31 PM MUSE SYSTEM 01/11/2021 1:59 AM EST 01/12/2021 5:28 PM EST Rayo Bianchi MD ECG ORDERABLES Performing Organization Address City/[facility]/ZIP Co de Phone Number MUSE SYSTEM * (ABNORMAL) Differential, Automated (01/10/2021 9:55 PM EST) Pathologist [facility] Neutrophil % 88.7 % [facility] Neutrophil Absolute 14.29(H) 1.70 - 6.10 x10(3)/mc L [facility] Lymph % 8.9 % [facility] Lymphocytes Abs 1.4 0.9 - 3.2 x10(3)/[facility] Monocyte % 1.4 % [facility] Monocyte Abs 0.2(L) 0.3 - 0.9 x10(3)/[facility] Eos % 0.1 % [facility] Eosinophils Abs 0.0 0.0 - 0.4 x10(3)/[facility] Basophil % 0.3 % [facility] Baso Absolute 0.0 0.0 - 0.1 x10(3)/[facility] Immature Gran % 0.60 % [facility] Comment: Immature granulocytes(IG's)percentage and absolute count will include metamyelocytes, myelocytes, and promyelocytes. Blood smears from CBCs yielding IG's will be scanned manually for concordance. If this scan disagrees with the automated IG or if promyelocytes are noted, a manual differential will be performed. Immature Gran Absolute 0.09(H) 0.00 - 0.04 x10(3)/[facility] Blood specimen (specimen) 01/10/2021 9:55 PM EST 01/10/2021 10:01 PM EST Narrative Resulting Agency Comment Spec In Lab Ernie Thrasher MD HEMATOLOGY [facility] [place] [place] [place] [address] * (ABNORMAL) Hemogram (01/10/2021 9:55 PM EST) White Blood Cell 16.1(H) 4.0 - 9.5 x10(3)/[facility] Red Blood Cell 4.79 4.58 - 5.54 x10(6)/[facility] Hemoglobin 13.5(L) 13.7 - 16.5 gm/dL [facility] Hematocrit 41.1 40.5 - 48.5 % [facility] Mean Cell Volume 85.8 82.9 - 93.1 fL [facility] Mean Cell Hemoglobin 28.2 27.5 - 32.1 pg [facility] Mean Cell Hemoglobin Concentration 32.8 32.0 - 35.7 gm/dL [facility] Platelet 253 145 - 357 x10(3)/mc L [facility] RDW Standard Deviation 44.0 36.0 - 45.0 fL [facility] RDW coefficient of variation 14.2(H) 11.4 - 13.8 % [facility] Mean Platelet Volume 10.3 7.6 - 12.9 fL [facility] NRBC% auto 0.0 % [facility] NRBC Absolute 0.000 0.000 - 0.000 x10(3)/mc L [facility] Blood specimen (specimen) 01/10/2021 9:55 PM EST 01/10/2021 10:01 PM EST Narrative Resulting Agency Comment Spec In Lab Ernie Thrasher MD HEMATOLOGY [facility] [place] Performing Organization Address City/[facility]/ZIP Co de Phone Number [facility] [place] [place] [address] * (ABNORMAL) APTT (01/10/2021 9:55 PM EST) Partial Thromboplastin Time 66(H) 25 - 37 sec [facility] Comment: The PTT is NOT appropriate for heparin monitoring. Use the Anti-Xa level for heparin monitoring (HEP UFH) or LMWH monitoring (HEP LMW). A PTT less than 37 seconds generally indicates adequate hemostasis. Blood specimen (specimen) 01/10/2021 9:55 PM EST 01/10/2021 10:01 PM EST Narrative Resulting Agency Comment Spec In Lab Fadi Escobar MD HEMATOLOGY ORDERABLE S [facility] [place] [address] * (ABNORMAL) Prothrombin Time (01/10/2021 9:55 PM EST) Prothrombin Time 15.6(H) 9.4 - 12.5 sec [facility] International Normalization Ratio 1.4 [facility] Comment: An INR <2.0 indicates [...] MD HEMATOLOGY ORDERABLE S Performing Organization Address [facility] Co de Phone Number [facility] [place] [address] * (ABNORMAL) Hepatic Function Panel (01/10/2021 9:55 PM EST) Pathologist [facility] Protein, Total 6.1 6.1 - 8.0 gm/dL [facility] Albumin 3.3 3.2 - 5.2 gm/dL [facility] Aspartate Aminotransferase 46(H) 0 - 39 unit/L [facility] Alanine Aminotransferase 40 0 - 55 unit/L [facility] Alkaline Phosphatase 51 40 - 130 unit/L [facility] Bilirubin, Total 0.5 0.2 - 1.3 mg/dL [facility] Bilirubin, Direct 0.2 0.0 - 0.3 mg/dL [facility] Blood specimen (specimen) 01/10/2021 9:55 PM EST 01/10/2021 10:01 PM EST Narrative Resulting Agency Comment Spec In Lab Fadi Escobar MD CHEMISTRY ORDERABLES [facility] [place] [address] * (ABNORMAL) Magnesium (01/10/2021 9:55 PM EST) Magnesium 0.63(L) 0.69 - 1.07 mmol/L [facility] Blood specimen (specimen) 01/10/2021 9:55 PM EST 01/10/2021 10:01 PM EST Narrative Resulting Agency Comment Spec In Lab Fadi Escobar MD CHEMISTRY ORDERABLES Performing Organization Address City/[facility]/ZIP Co de Phone Number [facility] [place] [address] * (ABNORMAL) Basic Metabolic Panel (non-fasting) (01/10/2021 9:55 PM EST) Pathologist [facility] Glucose 171 65 - 199 mg/dL [facility] Comment:Diabetes: >=200 mg/d L plus symptoms Blood Urea Nitrogen 15 10 - 20 mg/dL [facility] Creatinine 0.89 0.80 - 1.50 mg/dL [facility] Sodium 138 135 - 145 mmol/L [facility] Potassium 4.3 3.5 - 5.0 mmol/L [facility] Comment: Please note: ??Patients with WBC >100,000 may have falsely elevated Potassium levels. ??For accurate Potassium quantification in these patients send serum separator tube (gold top) for subsequent determinations. ??Contact the Clinical Chemistry Laboratory if there are any questions. Chloride 107 98 - 107 mmol/L [facility] Carbon Dioxide 18(L) 22 - 31 mmol/L [facility] Anion Gap 13 5 - 15 mmol/L [facility] Calcium 8.1(L) 8.5 - 10.5 mg/dL [facility] Est Glomerular Filtration Rate 99 >=60 mL/min/1. 73 m?? [facility] Comment: This patient? s estimated [...] In Lab Fadi Escobar MD CHEMISTRY ORDERABLES [facility] [place] [place] [address] * ELECTROPHYSIOLOGY PROCEDURE (01/10/2021 6:28 PM EST) Anatomical Region Laterality Modality Other Narrative 01/22/2021 8:24 AM EDT Cardiac Electrophysiology Please refer to the operative note filed under the inpatient tab following the completion of this procedure. Fadi Escobar MD EP PROCEDURE ORDERAB LES * (ABNORMAL) Point of Care Blood Gas Historical (01/10/2021 4:20 PM EST) pH, POC 7.41 7.35 - 7.45 [facility] pCO2, POC 40 35 - 45 mmHg [facility] pO2, POC 149(H) 85 - 104 mmHg [facility] Base Excess, POC 0.0 -3.0 - 3.0 mmol/L [facility] Bicarbonate, POC 24.8 20.0 - 26.0 mmol/L [facility] Sodium, POC 139 135 - 145 mmol/L [facility] POC Potassium 3.9 3.5 - 5.0 mmol/L [facility] POC Hematocrit 42.0 40.0 - 51.0 % [facility] POC Calc Hgb 14.3 13.7 - 17.5 gm/dL [facility] Comment:The calculation of h emoglobin from hematocrit assumes a normal MCHC. POC Bgas Loc CC LAB [facility] Blood specimen (specimen) 01/10/2021 4:20 PM EST 01/11/2021 9:00 AM EST Jose Anand MD CHEMISTRY ORDERABLES [facility] [place] [place] [address] * COVID-19 PCR (01/10/2021 12:32 PM EST) SARS-CoV-2 RNA (Rapid) Not Detected Not Detected [facility] Comment: This result should be [...] using the Simplexa COVID-19 Direct Assay by [employer] as authorized by the FDA issued Emergency [...] Department of Pathology and Laboratory Medicine at [facility], certified under the Clinical Laboratory Improvement [...] fact sheets at the following FDA website: https://www.fda.gov/medical-devices/tpfpjnaeook-lvfmxww-9752-oskij-34-uhkkfboqf- use-a qogpiypilkske-touyybg-frxvcla/zbcls-pjiusyepask-nkny SARS-CoV-2 Source APPLIED PSYCHOLOGY PROFESSOR Swab [facility] Nasopharyngeal swab (specimen) 01/10/2021 12:32 PM EST 01/10/2021 1:22 PM EST Comment:Symptoms->Surveillan ce Narrative Resulting Agency Comment Spec In Lab Fadi Escobar MD MICROBIOLOGY - GENER AL ORDERABLES Performing Organization Address City/State/[facility] Co de Phone Number [facility] [place] [address] documented in this encounter Visit Diagnoses Diagnosis [...] Oral, 4 TIMES DAILY PRN, Starting on Fri01/13/21 at 1244, Until Fri01/13/21 at 1737, Diarrhea, Do not exceed 16 [...] Fri01/11/21 at 0815, Administer over 120 Minutes New Bag 01/11/2021 8:38 AM EST 2 g 25 mL/hr metoprolol tartrate (Lopressor) tablet 12.5 mg 12.5 mg, Oral, EVERY 6 HOURS SCHEDULED, First dose (after last modification) on Fri01/13/21 at 1800, Until Discontinued, Routine metoprolol tartrate (Lopressor) tablet 25 mg 25 mg, Oral, EVERY 6 HOURS SCHEDULED, First dose on 01/13/21 at 0930, Until Discontinued, Routine Given 01/13/2021 [...] 01/12/2021 8:40 AM EST 40 mg PHENYLephrine (Suhki-Synephrine) (80 mcg/mL) in sodium chloride 0.9% 250 [...] Nayan William RN)1117 (Given - Provider: Tess Santiago, RN) AMIOdarone (Cordarone; Pacerone) tablet 400 mg 400 mg, Oral, DAILY, First dose (after last modification) on Fri01/11/21 at 0900, Until Discontinued, Routine 0828 (Given - Provider: Tess Santiago RN)1341 (JAN Hold - Provider: Admin Adt - Reason: Transfer to a Procedural area)1446 (MAR Unhold - Provider: Admin Adt) 0840 (Given - Provider: Tess Santiago RN) 0825 (Given - Provider: Tess Santiago, RN) apixaban (Eliquis) tablet 5 mg 5 mg, Oral, 2 TIMES DAILY, First dose on Fri01/12/21 at 2100, Until Discontinued, Anticoagulant, Routine, Restricted anticoagulant, choose the most appropriate response: Continuation of ongoing therapy 2100 (Given - Provider: Nayan William RN) 0826 (Given - Provider: Tess Santiago RN) aspirin chewable tablet 81 mg (CANCELED) 81 mg, Oral, DAILY, First dose on Candi 01/11/21 at 0015, Until Discontinued, Routine 0036 (Given - Provider: Citlali Flores RN) aspirin EC tablet 650 mg 650 mg, Oral, 3 TIMES DAILY, First dose (after last modification) on Fri01/11/21 at 2100, Until Discontinued, Routine 2104 (Given - Provider: Nayan William RN) 0840 (Given - Provider: Tess Santiago RN)1437 (Given - Provider: Tess Santiago RN)2059 (Given - Provider: Nayan William RN) 0824 (Given - Provider: Tess Santiago RN)1449 (Given - Provider: Tess Santiago RN) atorvastatin (Lipitor) tablet 20 mg 20 mg, Oral, EVERY EVENING, First dose on Fri01/10/21 at 2345, Until Discontinued, Routine 34 (Given - Provider: Citlali Flores RN)1341 (JAN [...] on Fri01/11/21 at 2200, Until Discontinued, Routine 2105 (Given - Provider: Nayan William RN) 0600 [...] 0015, STAT 2348 (Given - Provider: Nayan William RN) pantoprazole EC (Protonix) tablet 40 mg 40 mg, Oral, 2 TIMES DAILY, First dose on Fri01/10/21 at 2345, Until Discontinued, DO NOT CRUSH OR OPEN, Routine 0035 (Given - Provider: Citlali Flores RN)0828 (Given - Provider: Tess Santiago RN)1341 (MAR Hold - Provider: Admin Adt - Reason: Transfer to a Procedural area)1446 (MAR Unhold - Provider: Admin Adt)2105 (Given - Provider: Nayan William RN) 0840 (Given - Provider: Tess Santiago RN)2100 (Given - Provider: Nayan William, FLAVIA) 0826 (Given - Provider: Tess Santiago RN) [...] Santiago RN)210 (Given - Provider: Nayan William, FLAVIA) 0843 (Given - Provider: Tess Santiago RN) [...] comment - Comment: infusing)210 (Given - Provider: Naayn William RN) 0844 (Given - Provider: Tess [...] 100 mL/hr, Intravenous, CONTINUOUS, Starting on Candi 3 at 0000, Until Candi 01/11/21 at 0629 [...] Procedural area)1446 (MAR Unhold - Provider: Admin Adt)1500 (New Bag [...] Gina Carmichael RN)2105 (Given - Provider: Nayan William RN) 0322 [...] Procedural area)1446 (JAN Unhold - Provider: Admin Adt)2107 (Given - Provider: Nayan William, FLAVIA) 0848 (Given - Provider: Tess Santiago RN) fentaNYL (pf) (50 mcg/mL) multi-dose injection (CANCELED) ONCE PRN, Starting on Candi 01/11/21 at 1412, Until Candi 01/11/21 at 1433, Intra-Operative (Intra-Procedure), Routine 1412 (Given - Provider: Jonathon Jimenez RN)1416 (Given - Provider: Jonathon Jimenez, FLAVIA)1420 (Given [...] Routine 0100 (Given - Provider: Nayan William, FLAVIA)0323 (Given - Provider: Nayan William, FLAVIA)0521 (Given - Provider: Nayan William RN)1014 (Given - Provider: Tess Santiago RN)210 (Given - Provider: Nayan William RN) lidocaine [...] Jimenez RN)1416 (Given - Provider: Jonathon Jimenez RN)1421 (Given - Provider: Jonathon Jimenez RN) [...] - Reason: Transfer to a Procedural area)1446 ([facility] Unhold - Provider: Admin Adt) [...] - Reason: Transfer to a Procedural area)1446 ([facility] Unhold - Provider: Admin Adt) [...] patch documented in this encounter Care Teams Radio Frequency Technician Relationship Specialty Start Date End Date Bin Bowman MD [address] [place] [id number] PCP - General General Internal Medicine 04/21/1707/11 documented as of this encounter
--- OUTSIDE RECORDS SUMMARY | 2024-06-17 22:21 | XMS_ITS | Encounter Summary ---
Author Organization [facility] [place] [address] Care Team Providers Care White Metal Corrosion Proofer Name Role Phone Bin Bowman MD Primary Care Provider [phone] Reason for Visit * Auth/Cert Specialty Diagnoses / Procedures Referred By Zeyad mishra Referred To Contact Diagnoses SVT (supraventricular tachycardia) [I47.1], PAF (paroxysmal atrial fibrillation) [I48.0] Procedures ELECTROPHYSIOLOGY PROCEDURE TRANSESOPHAGEAL ECHO DURING CATH/EP PROCEDURE Referral ID Status Reason Start Date Expiration Date Visits Re quested Visits Authorized [id number] 1 1 Encounter Details Date Type Department Care Team (Late st Contact Info) Description 01/11/2021 2:18 PM EST - 01/11/2021 3:18 PM EST Surgery [place] [address] Erich Amato MD [facility] [place] [address] CARDIAC CATHETERIZATION Social History Tobacco Use Types [...] a total of 1.6 LR in the cath lab technologist. He was awakened from anesthesia, [...] MV E-wave Vmax 0.94 m/sec MV deceleration vpsq676.49 msec MV A-wave Vmax 0.66 m/sec MV [...] Normal Mid-Posterolateral Normal Mid-Inferior Normal Mid-Inferoseptal Normal Tollhouse-Septal Normal Tollhouse-Anterior Normal Tollhouse-Lateral Normal Tollhouse-Inferior Normal Tollhouse-Tip Normal TTE 01/12/21 1. A trivial pericardial [...] MV E-wave Vmax 0.52 m/sec MV deceleration qxzs616.21 msec MV A-wave Vmax 0.41 m/sec MV [...] Normal Mid-Posterolateral Normal Mid-Inferior Normal Mid-Inferoseptal Normal Tollhouse-Septal Normal Tollhouse-Anterior Normal Tollhouse-Lateral Normal Tollhouse-Inferior Normal Tollhouse-Tip Normal Pericardiocentesis 01/11/21 Conclusions: * Successful placement [...] 4:20 PM Jayne Rogel APRN Cardiology at [facility] Arrive at: [facility] Area [phone] 02/05/2021 2:15 PM Mary Daley PA Cardiology at [facility] Arrive at: [facility] [employer] [facility] [phone] General Instructions DISCHARGE INSTRUCTIONS FOLLOWING YOUR ABLATION [...] of any new medications initiated at the [facility]. The patient should be aware and [...] or the Cardiac Electrophysiology Service Triage Nurse ([phone], option 3). Patient Instructions Patient Instructions on [...] Center 01/17/2021 4:20 PM Jayne Rogel APRN [facility] CARD 4A [facility] 02/05/2021 2:15 PM Mary Daley PA [facility] CARD 4A [facility] PCP: Bin Bowman MD @ [phone] Field Representatives Director: Will be assigned at the next cardiology appt Your Inpatient Medical Team at [facility] Name(s) of your inpatient provider(s): Jose Anand MD- Attending physician Thor Wills MD- Profile Trimmer Harini Jansen MD-Resident Physician Chavo Dominguez MD- Syrup Blender Physician Call your doctor if: Chest pain, shortness of breath, pain or swelling in legs occurs. If you have non-emergent questions between now and the time of your follow up appointments: During 8am-5pm Friday through Friday call [phone] to speak with a nurse in the cardiology clinic All other times call [phone] and ask to speak to the staffing account manager airport location manager. For questions regarding this document or issues relating to this hospitalization on the Medical Service, please contact your inpatient physician through the [facility] Hydrochloric Acid Operator . Issues afterhours and on weekends will be handled by the Field Representatives Director staff on-call. documented in this encounter Discharge Instructions * Discharge Instructions* Maria M Hercules, CANCER REGISTRAR - 01/12/2021 4:04 PM EST DISCHARGE INSTRUCTIONS [...] of any new medications initiated at the [facility]. The patient should be aware and [...] or the Cardiac Electrophysiology Service Triage Nurse ([phone], option 3). * Patient Instructions* Harini Jansen [...] Center 01/17/2021 4:20 PM Jayne Rogel APRN [facility] CARD 4A [facility] 02/05/2021 2:15 PM Mary Daley PA [facility] 4A [facility] PCP: Bin Bowman MD @ [phone] Field Representatives Director: Will be assigned at the next cardiology appt Your Inpatient Medical Team at [facility] Name(s) of your inpatient provider(s): Jose Anand MD- Attending physician Thor Wills MD- Profile Trimmer Harini Jansen MD-Resident Physician Chavo Dominguez MD- Syrup Blender Physician Call your doctor if: Chest pain, shortness of breath, pain or swelling in legs occurs. If you have non-emergent questions between now and the time of your follow up appointments: During 8am-5pm Friday through Friday call [phone] to speak with a nurse in the cardiology clinic All other times call [phone] and ask to speak to the staffing account manager airport location manager. documented in this encounter Medications at Time [...] Physical Therapy: 20 NAYAN GUERRERO PT Pager: [phone] Physical Therapy Inpatient Rehabilitation Department * Tess [...] IVs and tele removed. Pt brought [facility] in wheelchair by staff with belongings. * [...] Dr. Jansen. Jose Anand MD, MPH, VI, [facility] Pager [phone] Cardiovascular Hand Flatwork FinisherStudent Counsellorphysical [place] [address] * Mahogany Ferreira OT - 01/13/2021 12:16 PM EST Occupational Therapy Note 01/13/21 1214 OT Time and Intention Document Type contact Total Minutes, Occupational Therapy 0 Comment, Session Not Performed Order received. Chart reviewed. Spoke with both RN and PT. No acute OT needs. Pt mobilizing independently/supervised, and managing own ADLs. Will sign off. Mahogany Ferreira OTR Pager [phone] * Nilsa Goldstein MD - 01/13/2021 10:45 AM EST Inpatient Cardiology Progress Note Patient Name: Rolo Aguilar Responsible Attending: Jose Anand MD EP Attending: Nilsa Goldstein MD Reason for continued hospitalization: Evaluation and management of pericardial effusion post ablation Active Problems: Active Hospital Problems Diagnosis ??? SVT (supraventricular tachycardia) Added automatically from request for surgery [id number] ??? PAF (paroxysmal atrial fibrillation) Added automatically from request for surgery [id number] ??? H/O cardiac radiofrequency ablation Resolved Hospital [...] HR: SR 70-100 with intermittent SVT/ atrial ccmuxnjnugk124-667 bpm. Meds: Scheduled Meds: ??? metoprolol tartrate [...] 1 month after Zio. Maria M Hercules, CANCER REGISTRAR 01/13/2021 Pager: [phone] Addendum Stable, overall condition appears to have [...] Note: Added automatically from request for surgery [id number] ??? Bipolar disorder ??? PAF (paroxysmal atrial fibrillation) Overview Note: Added automatically from request for surgery [id number] ??? Flutter-fibrillation ??? H/O cardiac radiofrequency ablation ??? Coronary disease Overview Note: ?? 2017: STEMI. PCI of OM1. EF 60%. Many ER visits to [facility] after this. ??? Heart palpitations ??? Obesity [...] EKG - sinus rhythm rate 96 bpm. CA 154ms, QRS 94ms, QT 354 ms, QTc [...] Dr. Escobar for results. Maria M Hercules, CANCER REGISTRAR 01/12/2021 Pager: [phone] Cardiac Electrophysiology Attending This patient was seen [...] (WRVU 11.47) performed by Colt Hewitt MD [facility] MAIN OR ??? PRO UNLISTED LAPAROSCOPIC PX [...] at [facility] ENDOSCOPY ??? TONSILLECTOMY Active Non-Hospital Problems Diagnosis ??? Bipolar disorder ??? Flutter-fibrillation ??? Coronary disease ??? Heart palpitations ??? Obesity ??? Essential hypertension Social History: Pt resides with and mother in a house with 5 stairs to enter with L sided railing. Pt has a flt to basement where he resides with L sided railing. 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 Precautions/Special Considerations: Fall risk, lobato,chest tube,PIV,significant [...] Physical Therapy: 40 Macey Alarcon, PT Pager: [phone] Physical Therapy Inpatient Rehabilitation Department * Mark [...] Will continue to follow. CARMELO Souza/L Pager: [phone] * Jose Anand MD - 01/12/2021 7:00 [...] Dr. Dominguez. Jose Anand MD, MPH, RPVI, FACC Pager [phone] Cardiovascular Hand Flatwork FinisherStudent Counsellorphysical [place] [address] * Nayan William RN - 01/12/2021 6:15 AM EST Loss of arterial line overnight. MD notified. Line d/c'd by FLAVIA Gregory, pressure held by this screenplay writer. Non-invasive BP remains WNL. Pain and [...] that he had been found to havea zqfcx-pe-ppomzdnr size pericardial effusion on echocardiogram during the [...] examined this patient and discussed with the internal grinder set up operator, resident, fellow. I have personally reviewed the echocardiogram (initial and repeat) and discussed with Fadi Escobar from EP. While no clear evidence of tamponade, we will tap and leave drain in for fluid. Hold anticoagulation fornow. Judy Tijerina MD, Robinson, [facility] Cardiology Attending ID: Rolo Aguilar is [...] MD PGY2, Cardiology S2 01/11/2021 * Hanna Clarso RN - 01/11/2021 3:41 AM EST OUTCOME [...] room. 01/11/2021: 0220: [facility] nurse[facility]ami. Plans for transport per protocol on monitor withnurse assist. documented in this encounter H&P Notes * Judy Tijerina MD - 01/10/2021 9:24 PM EST Cardiology Admission History and Physical Patient Name: Rolo Aguilar Service: S1 Team Responsible Attending: Rayo Bianchi MD PCP: Bin Bowman MD PCP phone #: [phone] ID/Chief Complaint: Rolo Aguilar is a 50 [...] a total of 1.6 LR in the cath lab technologist. He was awakened from anesthesia, [...] ventricular segmental wall motion abnormalities present at [facility] inferolateral wall, as coded in [...] tachycardia) Added automatically from request for surgery [id number] ??? Bipolar disorder ??? PAF (paroxysmal atrial fibrillation) Added automatically from request for surgery [id number] ??? Flutter-fibrillation ??? H/O cardiac radiofrequency ablation ??? Coronary disease ?? 2017: STEMI. PCI of OM1. EF 60%. Many ER visits to [facility] after this. ??? Heart palpitations ??? Obesity [...] PLAN: Admit to Cardiology, M1S1 Team Pager #[phone] #Post-Procedural Hypotension #Atrial Flutter s/p ablation #Hx [...] examined this patient and discussed with the internal grinder set up operator, resident, fellow. Judy Tijerina MD, [place], [facility] Card[facility] Attending * Fadi Escobar MD - 01/10/2021 10:24 AM EST Interval History and Physical Exam: Planned Procedure [facility] CARDIAC ELECTROPHYSIOLOGY LABORATORIES HISTORY OF PRESENT ILLNESS: Rolo Aguilar is a 50 y.o. man old gentleman referred by??Jose Culver MD, for several recent manifestly symptomatic cardiac dysrhythmias. Mr. Aguilar had presented on April 27 to the Emergency Department in [facility] with an episode of supraventricular [...] (WRVU 11.47) performed by Colt Hewitt MD [facility] MAIN OR ??? PRO UNLISTED LAPAROSCOPIC PX [...] at [facility] ENDOSCOPY ??? TONSILLECTOMY Accessory Clinical Findings: [...] Procedure Note: Patient Name: Rolo Aguilar : [id number] MR#: [id number] Case Date: 01/11/2021 Hydrochloric Acid Operator: Surgeon(s) and Role: * Erich Amato MD - Primary * Rachana Silver DO - Fellow Preoperative diagnosis: Pericardial drain placement Postoperative diagnosis: * Pre-tamponade * Procedure(s) performed: Pericardiocentesis Pericardial drain placement Access: Apical chest wall, just below the left breast; six turkmen pigtail. A time-out was conducted prior to [...] spouse would be surrogate decision maker per [place] surrogate decision making law. (Only good for 90 days) Any patient receiving care at [facility] must abide by [place] law. The hierarchy for surrogate decision making [...] (i) The agent with financial power of commonwealth attorney or a conservator appointed in accordance with RSA 464-A. (j) The guardian of the patient???s estate. Current Functional Ability: Current Functional Status: Independent Functional Status Prior to Admission: Prior Functional Status: Independent Home Environment: People in Home: spouse. Living Arrangements: house. Current DME: None DME Needed at DC: None Home Address Listed as: [address] [place] [address] Social & Family Supports: Extended Emergency Contact Information Primary Emergency Contact: Autumn Aguilar Address: [address] [place] [id number] [place] [address] Mobile Relation: Spouse Secondary Emergency Contact: TadeoWhitney Address: [address] [place] [address] [facility] Relation: Sibling Community Resources being provided [...] N/A Prescription Coverage: yes Preferred Pharmacy: [id number] [place] - [address] [place] [address] [facility] - [place], [place] [address] [facility] [address] [id number] - [place] [address] [facility] [address] [id number] - [place], [place] - [address] [facility] [address] [facility] [address] Primary Care Provider: Bin Bowman MD [phone] Patient/Caregiver Goals of Treatment: DC home Potential [...] of care planning. Chanell Fatima RN, MSN, radiagraph operator Office of Care Management Pager: [phone] Work * Brief Op Note - Fadi Escobar MD - 01/10/2021 7:27 PM EST Brief Operative Note Patient Name: Rolo Aguilar : [id number] MR#: [id number] Case Date: 01/10/2021 Surgeon: Surgeon(s) and Role: [...] were issues with initial functionality of the enGene data acquisiton system, the EP-4 stimulator, and the lateral Syrmo fluoroscopic camera. Reconfigurations, engaging with technical support, [...] rate of 2500 units/hour. The short 8 Belgian sheaths in the right femoral vein were [...] of 1110 milliseconds (ms) were as follows: CA: 180 ms (P wave duration 140 ms) QRS: 100 ms QT: 480 ms 2) Atrial overdrive pacing was accomplished from the proximal-most bipole in the coronary sinus (CS), and the atrioventricular (AV) Wenckebach block CL was observed at 410 ms. There was no pre-excitation or conduction aberrancy identified. 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 Left Atrial Anatomy and Mapping: A CARTO Shmoop ThermoCool SF 8 Fr ablation catheter with [...] the [place] a [place] [address] Joules during minutes:seconds of actual ablation time, [...] (and/or limitations of familiarity) with the recently installedClCoinBatch mapping system. Mitral Annular Flutter Induction, Mapping, [...] Dose: 681 mGy Total Radiofrequency Energy Delivered: [id number] Joules Total Actual Ablation Time: 50:31 m:s [...] revealed that he had developed a s owls-jr-loqxvoyx effusion with restricted filling (though not overt right atrial collapse). A pericardiocentesis subsequently was performed with a 300 cc of bloody fluid removed (please see separte report by Erich Amato MD), and the blood pressure reverted to baseline values; a 6 Belgian pericardial drain was placed, but there was no significant fluid reaccumulation. documented in this encounter Plan of Treatment Upcoming Encounters Date Type Department Care Team (Late st Contact Info) Description 06/23/2024 10:00 AM EDT Office Visit Cardiology at [address] [place] [address] Nilsa Goldstein MD [facility] [place] [address] 09/21/2024 10:[address] [place] [address] Rachel Carrasco MD [facility] [place] [address] 09/21/2024 11:00 AM EST [place] [address] Rachel Carrasco MD [facility] [place] [address] Pending Results Name Type Priority Associated Diagnoses [...] SHERWOOD M ?(Age): 1970(50y) Med Rec#: ? [id number] ?Sex: ?M ? Site Loc: ? [facility] ?Ht / Wt: ??168(cm)/198(kg) Pt. Loc: ?Adult Floor ? BSA: ?2.79 Study Date: ?? 01/13/2021 ?Pt. Type: Inpatient Tape: ? Referring: Jose Anand ??([id number]) Reading: Jsos De Anda ([id number]) Phlebotomy Director: Shahriar Juan RDCS, [place] Diagnosis: *Pericardial effusion [...] Vmax ?0.94 ? m/sec ? MV deceleration mpio437.49 ? msec ? MV A-wave Vmax ?0.66 [...] ? Mid-Inferior ?Normal ? Mid-Inferoseptal ?Normal ? Tollhouse-Septal ? Normal ? Tollhouse-Anterior ? Normal ? Tollhouse-Lateral ?Normal ? Tollhouse-Inferior ? Normal ? Tollhouse-Tip ?Normal ? This report has been electronically signed by: Joss De Anda MD ? 01/13/2021 11:37:34 Images reviewed and interpretation verified [facility] Cardiac Ultrasound Laboratory Procedure Note Joss De Anda MD - 01/13/2021 Procedure: Transthoracic Echocardiogram Patient: ISAAC Rodney (Age): 1970(50y) Med Rec#: [id number] Sex: M Site Loc: [facility] Ht / Wt: 168(cm)/198(kg) Pt. Loc: Adult Floor BSA: 2.79 Study Date: 01/13/2021 Pt. Type: Inpatient Tape: Referring: Jose Anand ([id number]) Reading: Joss De Anda ([id number]) Phlebotomy Director: Shahriar Juan RDCS, FASE Diagnosis: *Pericardial effusion [...] MV E-wave Vmax 0.94 m/sec MV deceleration mwog829.49 msec MV A-wave Vmax 0.66 m/sec MV [...] Normal Mid-Posterolateral Normal Mid-Inferior Normal Mid-Inferoseptal Normal Tollhouse-Septal Normal Tollhouse-Anterior Normal Tollhouse-Lateral Normal Tollhouse-Inferior Normal Tollhouse-Tip Normal This report has been electronically signed by: Joss De Anda MD 01/13/2021 11:37:34 Images reviewed and interpretation verified [facility] Cardiac Ultrasound Laboratory Jose Anand MD ECHO ORDERABLES * EKG 12 Lead (01/13/2021 8:06 AM EST) Pathologist [facility] Ventricular rate 141 BPM MUSE SYSTEM Atrial Rate 141 BPM MUSE SYSTEM P-R Interval 146 ms MUSE SYSTEM QRS Duration 94 ms MUSE SYSTEM Q-T Interval 266 ms MUSE SYSTEM QTC Calculated (Bezet) 407 ms MUSE SYSTEM Calculated P [place] 55 degrees MUSE SYSTEM Calculated R [place] 28 degrees MUSE SYSTEM Calculated T [place] 54 degrees MUSE SYSTEM INTERPRETATION Sinus tachycardia Low voltage QRS Possible Inferior infarct (cited on or before 13-JAN-2021) Abnormal ECG When compared with ECG of 12-JAN-2021 00:07, Diffuse ST-elevations have resolved, and there are now diffuse TWI, consistent with resolving pericarditis Confirmed by MD Neetu, Joss ([id number]) on 01/13/2021 12:29:23 PM MUSE SYSTEM 01/13/2021 8:06 AM EST 01/13/2021 12:29 PM EST Jose Anand MD ECG ORDERABLES MUSE SYSTEM * (ABNORMAL) Differential, Automated (01/13/2021 5:30 AM EST) Pathologist [facility] Neutrophil % 71.0 % [facility] Neutrophil Absolute 8.18(H) 1.70 - 6.10 x10(3)/mc L [facility] Lymph % 16.6 % [facility] Lymphocytes Abs 1.9 0.9 - 3.2 x10(3)/ L [facility] Monocyte % 10.7 % [facility] Monocyte Abs 1.2(H) 0.3 - 0.9 x10(3)/ L [facility] Eos % 0.5 % [facility] Eosinophils Abs 0.1 0.0 - 0.4 x10(3)/[facility]OR[facility] Basophil % 0.3 % [facility] Baso Absolute 0.0 0.0 - 0.1 x10(3)/[facility] LABORATORY Immature Gran % 0.90 % [facility] Comment: Immature granulocytes(IG's)percentage and absolute count will include metamyelocytes, myelocytes, and promyelocytes. Blood smears from CBCs yielding IG's will be scanned manually for concordance. If this scan disagrees with the automated IG or if promyelocytes are noted, a manual differential will be performed. Immature Gran Absolute 0.10(H) 0.00 - 0.04 x10(3)/[facility] LABORATORY Blood specimen (specimen) 01/13/2021 5:30 AM EST 01/13/2021 5:44 AM EST Narrative Resulting Agency Comment Spec In Lab Harini Jansen MD HEMATOLOGY ORDERABLE S Performing Organization Address City/State/[facility] Co de Phone Number [facility] [place] [address] * (ABNORMAL) Hemogram (01/13/2021 5:30 AM EST) White Blood Cell 11.5(H) 4.0 - 9.5 x10(3)/[facility] LABORATORY Red Blood Cell 4.11(L) 4.58 - 5.54 x10(6)/ L [facility] Hemoglobin 11.4(L) 13.7 - 16.5 gm/dL [facility] Hematocrit 35.1(L) 40.5 - 48.5 % [facility] Mean Cell Volume 85.4 82.9 - 93.1 fL [facility] Mean Cell Hemoglobin 27.7 27.5 - 32.1 pg [facility] Mean Cell Hemoglobin Concentration 32.5 32.0 - 35.7 gm/dL [facility] Platelet 122(L) 145 - 357 x10(3)/mc L [facility] RDW Standard Deviation 44.7 36.0 - 45.0 fL [facility] RDW coefficient of variation 14.6(H) 11.4 - 13.8 % [facility] Mean Platelet Volume 10.6 7.6 - 12.9 fL [facility] NRBC% auto 0.0 % [facility] NRBC Absolute 0.000 0.000 - 0.000 x10(3)/mc L [facility] Blood specimen (specimen) 01/13/2021 5:30 AM EST 01/13/2021 5:44 AM EST Narrative Resulting Agency Comment Spec In Lab Harini Jansen MD HEMATOLOGY ORDERABLE S Performing Organization Address City/[facility]/ZIP Co de Phone Number [facility] [place] [address] * Magnesium (01/13/2021 5:30 AM EST) Magnesium 0.92 0.69 - 1.07 mmol/L [facility] Blood specimen (specimen) 01/13/2021 5:30 AM EST 01/13/2021 5:45 AM EST Narrative Resulting Agency Comment Spec In Lab Jose Anand MD CHEMISTRY ORDERABLES Performing Organization Address City/[facility]/ZIP Co de Phone Number [facility] [place] [address] * (ABNORMAL) BMP w/fasting Glucose (01/13/2021 5:30 [...] of Diabetes Mellitus, Position Statement from the [place] [employer]. ??Diabetes Care, Volume 33, Supplement 1, Nov 2009 Blood Urea Nitrogen 14 10 - 20 mg/dL [place] [...] mmol/L [facility] Carbon Dioxide 22 22 - 31 mmol/L [facility] Anion Gap 10 5 - 15 mmol/L [facility] Calcium 8.2(L) 8.5 - 10.5 mg/dL [facility] Est Glomerular Filtration Rate 102 >=60 mL/min/1. 73 m?? [place] [...] Tijerina MD CHEMISTRY ORDERABLES Performing Organization Address City/State/[facility] Co de Phone Number [facility] [place] [address] * ECHO LMTD W/O CONTRAST W LMTD SPEC DOPP (01/12/2021 11:08 AM EST) EF 70 HEARTLAB SYSTEM Anatomical Region Laterality Modality Other 01/12/2021 Narrative 01/12/2021 11:42 AM EST Procedure: ?Transthoracic Echocardiogram Patient: ?ISAAC Rodney ?(Age): 1970(50y) Med Rec#: ? [id number] ?Sex: ?M ? Site Loc: ? [facility] ?Ht / Wt: ??168(cm)/198(kg) Pt. Loc: ?Adult Floor ? BSA: ?2.79 Study Date: ?? 01/12/2021 ?Pt. Type: Inpatient Tape: ? Referring: Thor Wills ([id number]) Referring: Judy Tijerina Reading: Roxana Mesa ([id number]) Phlebotomy Director: Willie Dugan [facility] Phlebotomy Director 2: Suzy Randolph Diagnosis: *Pericardial effusion (noninflammatory) [...] ? Mid-Inferior ?Normal ? Mid-Inferoseptal ?Normal ? [place]-Septal ? Normal ? [place]-Anterior ? Normal ? [place]-Lateral ?Normal ? [place]-Inferior ? Normal ? [place]-Tip ?Normal ? This report has been electronically signed by: Roxana Mesa MD ? 01/12/2021 11:42:18 Images reviewed and interpretation verified [facility] Cardiac Ultrasound Laboratory Procedure Note Roxana Mesa MD - 01/12/2021 Procedure: Transthoracic Echocardiogram Patient: ISAAC Rodney (Age): 1970(50y) Med Rec#: [id number] Sex: M Site Loc: [facility] Ht / Wt: 168(cm)/198(kg) Pt. Loc: Adult Floor BSA: 2.79 Study Date: 01/12/2021 Pt. Type: Inpatient Tape: Referring: Thor Wills ([id number]) Referring: Judy Tijerina Reading: Roxana Mesa ([id number]) Phlebotomy Director: Willie Dugan [facility] Phlebotomy Director 2: Suzy Randolph Diagnosis: *Pericardial effusion (noninflammatory) [...] Normal Mid-Posterolateral Normal Mid-Inferior Normal Mid-Inferoseptal Normal [place]-Septal Normal [place]-Anterior Normal [place]-Lateral Normal [place]-Inferior Normal [place]-Tip Normal This report has been electronically signed by: Roxana Mesa MD 01/12/2021 11:42:18 Images reviewed and interpretation verified [facility] Cardiac Ultrasound Laboratory Judy Tijerina MD ECHO ORDERABLES * Scan, Peripheral Blood (01/12/2021 8:19 AM EST) Plat estimate Normal [facility] RBC Morphology Abnormal [facility] Ovalocytes 1-5 /HPF [facility] [place] Cells 1-5 /HPF [facility] Vacuolated Neut Present [facility] Blood specimen (specimen) 01/12/2021 8:19 AM EST 01/12/2021 8:36 AM EST Narrative Resulting Agency Comment Spec In Lab Harini Jansen MD HEMATOLOGY ORDERABLE S [facility] [place] [address] * (ABNORMAL) Differential, Automated (01/12/2021 8:19 AM EST) Neutrophil % 71.6 % [facility] Neutrophil Absolute 13.82(H) 1.70 - 6.10 x10(3)/mc L [facility] Lymph % 7.9 % [facility] Lymphocytes Abs 1.5 0.9 - 3.2 x10(3)/ L [facility] Monocyte % 8.4 % [facility] Monocyte Abs 1.6(H) 0.3 - 0.9 x10(3)/ L [facility] Eos % 11.3 % [facility] Eosinophils Abs 2.2(H) 0.0 - 0.4 x10(3)/[facility] Basophil % 0.2 % [facility] Baso Absolute 0.0 0.0 - 0.1 x10(3)/ L [facility] Immature Gran % 0.60 % [facility] Comment: Immature granulocytes(IG's)percentage and absolute count will include metamyelocytes, myelocytes, and promyelocytes. Blood smears from CBCs yielding IG's will be scanned manually for concordance. If this scan disagrees with the automated IG or if promyelocytes are noted, a manual differential will be performed. Immature Gran Absolute 0.12(H) 0.00 - 0.04 x10(3)/mc L [facility] Blood specimen (specimen) 01/12/2021 8:19 AM EST 01/12/2021 8:36 AM EST Narrative Resulting Agency Comment Spec In Lab Harini Jansen MD HEMATOLOGY ORDERABLE S Performing Organization Address [facility]/ZIP Co de Phone Number [facility] [place] [address] * (ABNORMAL) Hemogram (01/12/2021 8:19 AM EST) White Blood Cell 19.3(H) 4.0 - 9.5 x10(3)/[facility] Red Blood Cell 4.48(L) 4.58 - 5.54 x10(6)/mc L [facility] Hemoglobin 12.5(L) 13.7 - 16.5 gm/dL [facility] Hematocrit 38.9(L) 40.5 - 48.5 % [facility] Mean Cell Volume 86.8 82.9 - 93.1 fL [facility] Mean Cell Hemoglobin 27.9 27.5 - 32.1 pg [facility] Mean Cell Hemoglobin Concentration 32.1 32.0 - 35.7 gm/dL [facility] Platelet 179 145 - 357 x10(3)/[facility] RDW Standard Deviation 46.8(H) 36.0 - 45.0 [facility] RDW coefficient of variation 14.8(H) 11.4 - 13.8 % [facility] Mean Platelet Volume 9.9 7.6 - 12.9 [facility] NRBC% auto 0.0 % [facility] NRBC Absolute 0.000 0.000 - 0.000 x10(3)/[facility] Blood specimen (specimen) 01/12/2021 8:19 AM EST 01/12/2021 8:36 AM EST Narrative Resulting Agency Comment Spec In Lab Harini Jansen MD HEMATOLOGY ORDERABLE S [facility] [place] [address] * Magnesium (01/12/2021 3:55 AM EST) Magnesium 0.95 0.69 - 1.07 mmol/L [facility] Comment:result rechecked-peg Blood specimen (specimen) Venous Draw / Unknown 01/12/2021 3:55 AM EST 01/12/2021 4:03 AM EST Narrative Resulting Agency Comment Spec In Lab Harini Jansen MD CHEMISTRY ORDERABLES [facility] [place] [address] * (ABNORMAL) BMP w/fasting Glucose (01/12/2021 3:55 [...] of Diabetes Mellitus, Position Statement from the [place] [employer]. ??Diabetes Care, Volume 33, Supplement 1, Nov 2009 Blood Urea Nitrogen 18 10 - 20 mg/dL [facility] [...] mmol/L [facility] Carbon Dioxide 22 22 - 31 mmol/L [facility] Anion Gap 9 5 - 15 mmol/L [facility] Calcium 8.2(L) 8.5 - 10.5 mg/dL [facility] Est Glomerular Filtration Rate 97 >=60 mL/min/1. 73 m?? [facility] [...] MD CHEMISTRY ORDERABLES [facility] [place] [id number] * EKG 12 Lead (01/12/2021 12:07 AM EST) Ventricular rate 96 BPM MUSE SYSTEM Atrial Rate 96 BPM MUSE SYSTEM P-R Interval 154 ms MUSE SYSTEM QRS Duration 94 ms MUSE SYSTEM Q-T Interval 354 ms MUSE SYSTEM QTC Calculated (Bezet) 447 ms MUSE SYSTEM Calculated P [place] 44 degrees MUSE SYSTEM Calculated R [place] 16 degrees MUSE SYSTEM Calculated T [place] 23 degrees MUSE SYSTEM INTERPRETATION Normal sinus rhythm Diffuse ST elevation, consider early repolarization, pericarditis, or injury Abnormal ECG When compared with ECG of 11-JAN-2021 06:29, Acute pericarditis is suspected. I personally reviewed the tracing and edited the fellows interpretation Confirmed by fellow Fernandez Higuera ([id number]) on 01/12/2021 9:35:13 AM Confirmed by Vini Chanel ([id number]) on 01/12/2021 5:29:51 PM MUSE SYSTEM 01/12/2021 12:0 7 AM EST 01/12/2021 5:29 PM EST Judy Tijerina MD ECG ORDERABLES MUSE SYSTEM * CARDIAC CATHETERIZATION (01/11/2021 2:33 PM EST) Anatomical Region Laterality Modality Other Narrative 01/11/2021 2:49 PM EST ?[facility] ? Cardiac Catheterization/Intervention Report ? Patient Name: Isaac, Rolo Rodney ? Procedure Date: 01/11/2021 ? A #: [id number] ? Primary Physician: Erich Amato ? Case #: [id number] ? File Name: [id number] ? Catheterization Order Number: [id number] ? [facility] ? Final Report [place], [place] ? Patient Name: ? Rolo Aguilar ? ID#: ?[id number] ? : ?1970 ? Procedure Date: ? [...] was designated as ASA Class IV. The [facility] clinical ?frailty scale is 6: Moderately Frail. [...] Procedure Note Erich Amato MD - 01/11/2021 [facility] Cardiac Catheterization/Intervention Report Patient Name: Rolo Aguilar Procedure Date: 01/11/2021 A #: [id number] Primary Physician: Erich Amato Case #: [id number] File Name: [id number] Catheterization Order Number: [id number] [facility] FinalReport [place], [place] Patient Name: Rolo Aguilar ID#:[id number] :1970 Procedure Date: January 11, 2021 Case [...] * Lactate, whole blood, send to lab ([facility] (01/11/2021 1:10 PM EST) Lactate WB 2.1 0.5 - 2.2 mmol/L [facility] Blood specimen (specimen) 01/11/2021 1:10 PM EST 01/11/2021 1:25 PM EST Narrative Resulting Agency Comment Spec In Lab Judy Tijerina MD CHEMISTRY ORDERABLES [facility] [place] [address] * ECHO COMPLETE W CONTRAST (01/11/2021 10:21 AM EST) EF 63 HEARTLAB SYSTEM Anatomical Region Laterality Modality Other 01/11/2021 Narrative 01/11/2021 11:10 AM EST Procedure: ?Transthoracic Echocardiogram Patient: ?ISAAC Rodney ?(Age): 1970(50y) Med Rec#: ? [id number] ?Sex: ?M ? Site Loc: ? [facility] ?Ht / Wt: ??167(cm)/185(kg) Pt. Loc: ?Adult Floor ? BSA: ?2.7 Study Date: ?? 01/11/2021 ?Pt. Type: Inpatient Tape: ? Referring: Rayo Bianchi ([id number]) Reading: Khurram Barillas ([id number]) Phlebotomy Director: Viola Moore Phlebotomy Director 2: Humza Wilson ([id number]) Interpreting Fellow: Humza Wilson ([id number]) Diagnosis: *Supraventricular tachycardia (I47.1) *1 vial Optison [...] Vmax ?0.52 ? m/sec ? MV deceleration qykr458.21 ? msec ? MV A-wave Vmax ?0.41 [...] ? Mid-Inferior ?Normal ? Mid-Inferoseptal ?Normal ? [place]ollhouse-Septal ? Normal ? [place]-Anterior ? Normal ? [place]-Lateral ?Normal ? [place]-Inferior ? Normal ? [place]-Tip ?Normal ? This report has been electronically signed by: Khurram Barillas MD ? 01/11/2021 11:04:46 Images reviewed and interpretation verified [facility] Cardiac Ultrasound Laboratory Procedure Note Khurram Barillas MD - 01/11/2021 Procedure: Transthoracic Echocardiogram Patient: ISAAC Rodney (Age): 1970(50y) Med Rec#: [id number] Sex: M Site Loc: [facility] Ht / Wt: 167(cm)/185(kg) Pt. Loc: Adult Floor BSA: 2.7 Study Date: 01/11/2021 Pt. Type: Inpatient Tape: Referring: Rayo Bianchi ([id number]) Reading: Khurram Barillas ([id number]) Phlebotomy Director: Viola Moore Phlebotomy Director 2: Humza Wilson ([id number]) Interpreting Fellow: Humza Wilson ([id number]) Diagnosis: *Supraventricular tachycardia (I47.1) *1 vial Optison [...] MV E-wave Vmax 0.52 m/sec MV deceleration [id number] msec MV A-wave Vmax 0.41 m/sec MV [...] Normal Mid-Posterolateral Normal Mid-Inferior Normal Mid-Inferoseptal Normal [place]-Septal Normal [place]-Anterior Normal [place]-Lateral Normal [place]-Inferior Normal [place]-Tip Normal This report has been electronically signed by: Khurram Barillas MD 01/11/2021 11:04:46 Images reviewed and interpretation verified [facility] Cardiac Ultrasound Laboratory Rayo Bianchi [...] * POCT Glucose (01/11/2021 7:45 AM EST) [facility] Signature Glucose, POC 136 65 - 199 mg/dL [facility] Comment: Supplemental ranges: <140 mg/dL before meals <180 mg/dL all other times of the day Blood specimen (specimen) 01/11/2021 7:45 AM EST 01/11/2021 7:45 AM EST Judy Tijerina MD POINT OF CARE TEST O RDERABLES [facility] [place] [address] * (ABNORMAL) Differential, Automated (01/11/2021 7:40 AM EST) Neutrophil % 85.3 % [facility] Neutrophil Absolute 11.24(H) 1.70 - 6.10 x10(3)/mc L [facility] Lymph % 8.5 % [facility] Lymphocytes Abs 1.1 0.9 - 3.2 x10(3)/mc L [facility] Monocyte % 5.5 % [facility] Monocyte Abs 0.7 0.3 - 0.9 x10(3)/mc L [facility] Eos % 0.0 % [facility] Eosinophils Abs 0.0 0.0 - 0.4 x10(3)/mc L [facility] Basophil % 0.1 % [facility] Baso Absolute 0.0 0.0 - 0.1 x10(3)/mc L [facility] Immature Gran % 0.60 % [facility] Comment: Immature granulocytes(IG's)percentage and absolute count will include metamyelocytes, myelocytes, and promyelocytes. Blood smears from CBCs yielding IG's will be scanned manually for concordance. If this scan disagrees with the automated IG or if promyelocytes are noted, a manual differential will be performed. Immature Gran Absolute 0.08(H) 0.00 - 0.04 x10(3)/mc L [facility] Blood specimen (specimen) 01/11/2021 7:40 AM EST 01/11/2021 7:58 AM EST Narrative Resulting Agency Comment Spec In Lab Harini Jansen MD HEMATOLOGY ORDERABLE S Performing Organization Address City/[facility]/ZIP Co de Phone Number [facility] [place] [address] * (ABNORMAL) Hemogram (01/11/2021 7:40 AM EST) White Blood Cell 13.2(H) 4.0 - 9.5 x10(3)/mc L [facility] Red Blood Cell 4.87 4.58 - 5.54 x10(6)/mc L [facility] Hemoglobin 13.7 13.7 - 16.5 gm/dL [facility] Hematocrit 42.2 40.5 - 48.5 % [facility] Mean Cell Volume 86.7 82.9 - 93.1 fL [facility] Mean Cell Hemoglobin 28.1 27.5 - 32.1 pg [facility] Mean Cell Hemoglobin Concentration 32.5 32.0 - 35.7 gm/dL [facility] Platelet 224 145 - 357 x10(3)/mc L [facility] RDW Standard Deviation 45.8(H) 36.0 - 45.0 [facility] RDW coefficient of variation 14.3(H) 11.4 - 13.8 % [facility] Mean Platelet Volume 10.7 7.6 - 12.9 [facility] NRBC% auto 0.0 % [facility] NRBC Absolute 0.000 0.000 - 0.000 x10(3)/mc L [facility] Blood specimen (specimen) 01/11/2021 7:40 AM EST 01/11/2021 7:58 AM EST Narrative Resulting Agency Comment Spec In Lab Harini Jansen MD HEMATOLOGY ORDERABLE S [facility] [place] [address] * (ABNORMAL) BMP w/fasting Glucose (01/11/2021 7:40 [...] of Diabetes Mellitus, Position Statement from the [place] [employer]. ??Diabetes Care, Volume 33, Supplement 1, Nov 2009 Blood Urea Nitrogen 15 10 - 20 mg/dL [facility] [...] mmol/L [facility] Carbon Dioxide 19(L) 22 - 31 mmol/L [facility] Anion Gap 11 5 - 15 mmol/L [facility] Calcium 8.1(L) 8.5 - 10.5 mg/dL [facility] Est Glomerular Filtration Rate 100 >=60 mL/min/1. 73 m?? [facility] [...] Tijerina MD CHEMISTRY ORDERABLES Performing Organization Address [facility]/ZIP Co de Phone Number [facility] [place] [address] * (ABNORMAL) Lactate, whole blood, send to lab ([facility] (01/11/2021 7:40 AM EST) Lactate WB 2.7(H) 0.5 - 2.2 mmol/L [facility] Blood specimen (specimen) 01/11/2021 7:40 AM EST 01/11/2021 8:00 AM EST Narrative Resulting Agency Comment Spec In Lab Judy Tijerina MD CHEMISTRY ORDERABLES Performing Organization Address [facility]/ZIP Co de Phone Number [facility] [place] [address] * (ABNORMAL) Hepatic Function Panel (01/11/2021 6:40 AM EST) Protein, Total 5.9(L) 6.1 - 8.0 gm/dL [facility] Albumin 3.3 3.2 - 5.2 gm/dL [facility] Aspartate Aminotransferase 47(H) 0 - 39 unit/L [facility] Alanine Aminotransferase 40 0 - 55 unit/L [facility] Alkaline Phosphatase 47 40 - 130 unit/L [facility] Bilirubin, Total 0.4 0.2 - 1.3 mg/dL [facility] Bilirubin, Direct 0.1 0.0 - 0.3 mg/dL [facility] Blood specimen (specimen) Venous Draw / Unknown 01/11/2021 6:40 AM EST 01/11/2021 6:48 AM EST Narrative Resulting Agency Comment Spec In Lab Harini Jansen MD CHEMISTRY ORDERABLES [facility] [place] [address] * (ABNORMAL) Troponin (01/11/2021 6:40 AM EST) Troponin-T 1.06(H) 0.00 - 0.00 ng/mL [facility] [...] ischemia ?? New or presumed new significant OF-[id number] wave (ST-T) changes or new left bundle [...] additional sample may be indicated. Reference: Third [place] Definition of Myocardial Infarction. Journal of the [place] [employer] 2012;60:1581-98 Blood specimen (specimen) 01/11/2021 6:40 AM EST 01/11/2021 6:47 AM EST Narrative Resulting Agency Comment Spec In Lab Rayo Bianchi MD CHEMISTRY ORDERABLES Performing Organization Address [facility]/ZIP Co de Phone Number [facility] [place] [address] * EKG 12 Lead (01/11/2021 6:29 AM EST) Ventricular rate 101 BPM MUSE SYSTEM Atrial Rate 101 BPM MUSE SYSTEM P-R Interval 150 ms MUSE SYSTEM QRS Duration 88 ms MUSE SYSTEM Q-T Interval 360 ms MUSE SYSTEM QTC Calculated (Bezet) 466 ms MUSE SYSTEM Calculated P Princeton 46 degrees MUSE SYSTEM Calculated R [place] 47 degrees MUSE SYSTEM Calculated T [place] 29 degrees MUSE SYSTEM INTERPRETATION Sinus tachycardia Low voltage QRS Borderline ECG When compared with ECG of 11-JAN-2021 01:59, (unconfirmed) No significant change was found Confirmed by MD Alecia, Ruperto Moya ([id number]) on 01/11/2021 5:10:03 PM MUSE SYSTEM 01/11/2021 6:29 AM EST 01/11/2021 5:10 PM EST Rayo Bianchi MD ECG ORDERABLES Performing Organization Address [facility] Co de Phone Number MUSE SYSTEM * Blood culture (01/11/2021 4:51 AM EST) Blood Culture No growth at 5 days. [facility] Blood specimen (specimen) STRUCTURE OF RIGHT HAND / Unknown 01/11/2021 4:51 AM EST 01/11/2021 6:43 AM EST Comment:SET 2 Narrative Resulting Agency Comment Spec In Lab Fadi Escobar MD MICROBIOLOGY - BLOOD ORDERABLES Performing Organization Address [facility]/ZIP Co de Phone Number [facility] [place] [address] * Blood culture (01/11/2021 4:30 AM EST) Blood Culture No growth at 5 days. [facility] Blood specimen (specimen) STRUCTURE OF RIGHT HAND / Unknown 01/11/2021 4:30 AM EST 01/11/2021 6:44 AM EST Narrative Resulting Agency Comment Spec In Lab Fadi Escobar MD MICROBIOLOGY - BLOOD ORDERABLES [facility] [place] [address] * XR Chest One View (01/11/2021 2:13 [...] (ABNORMAL) Lactate, whole blood, send to lab ([facility] (01/11/2021 2:05 AM EST) Lactate WB 3.5(H) 0.5 - 2.2 mmol/L [facility] Blood specimen (specimen) Venous Draw / Unknown 01/11/2021 2:05 AM EST 01/11/2021 2:14 AM EST Narrative Resulting Agency Comment Spec In Lab Ernie Thrasher MD CHEMISTRY ORDER BELEN [facility] [place] [address] * EKG 12 Lead (01/11/2021 1:59 AM EST) Ventricular rate 96 BPM MUSE SYSTEM Atrial Rate 96 BPM MUSE SYSTEM P-R Interval 148 ms MUSE SYSTEM QRS Duration 84 ms MUSE SYSTEM Q-T Interval 366 ms MUSE SYSTEM QTC Calculated (Bezet) 462 ms MUSE SYSTEM Calculated P [place] 52 degrees MUSE SYSTEM Calculated R [place] 60 degrees MUSE SYSTEM Calculated T [place] 19 degrees MUSE SYSTEM INTERPRETATION Normal sinus rhythm Baseline artifact Normal ECG When compared with ECG of 17-DEC-2020 02:40, Sinus rhythm has replaced Atrial fibrillation I personally reviewed the tracing and edited the fellows interpretation Confirmed by fellow Fernandez Higuera ([id number]) on 01/11/2021 10:24:41 AM Confirmed by Vini Chanel ([id number]) on 01/12/2021 5:28:31 PM MUSE SYSTEM 01/11/2021 1:59 AM EST 01/12/2021 5:28 PM EST Rayo Bianchi MD ECG ORDERABLES MUSE SYSTEM * (ABNORMAL) Differential, Automated (01/10/2021 9:55 PM EST) Pathologist [facility] Neutrophil % 88.7 % [facility] Neutrophil Absolute 14.29(H) 1.70 - 6.10 x10(3)/mc L [facility] Lymph % 8.9 % [facility] Lymphocytes Abs 1.4 0.9 - 3.2 x10(3)/mc L [facility] Monocyte % 1.4 % [facility] Monocyte Abs 0.2(L) 0.3 - 0.9 x10(3)/mc L [facility] Eos % 0.1 % [facility] Eosinophils Abs 0.0 0.0 - 0.4 x10(3)/mc L [facility] Basophil % 0.3 % [facility] Baso Absolute 0.0 0.0 - 0.1 x10(3)/mc L [facility] Immature Gran % 0.60 % [facility] Comment: Immature granulocytes(IG's)percentage and absolute count will include metamyelocytes, myelocytes, and promyelocytes. Blood smears from CBCs yielding IG's will be scanned manually for concordance. If this scan disagrees with the automated IG or if promyelocytes are noted, a manual differential will be performed. Immature Gran Absolute 0.09(H) 0.00 - 0.04 x10(3)/mc L [facility] Blood specimen (specimen) 01/10/2021 9:55 PM EST 01/10/2021 10:01 PM EST Narrative Resulting Agency Comment Spec In Lab Ernie Thrasher MD HEMATOLOGY SCOOTER YOUNGBLOOD [facility] [place] [address] * (ABNORMAL) Hemogram (01/10/2021 9:55 PM EST) White Blood Cell 16.1(H) 4.0 - 9.5 x10(3)/mc L [facility] Red Blood Cell 4.79 4.58 - 5.54 x10(6)/mc L [facility] Hemoglobin 13.5(L) 13.7 - 16.5 gm/dL [facility] Hematocrit 41.1 40.5 - 48.5 % [facility] Mean Cell Volume 85.8 82.9 - 93.1 fL [facility] Mean Cell Hemoglobin 28.2 27.5 - 32.1 pg [facility] Mean Cell Hemoglobin Concentration 32.8 32.0 - 35.7 gm/dL [facility] Platelet 253 145 - 357 x10(3)/mc L [facility] RDW Standard Deviation 44.0 36.0 - 45.0 fL [facility] RDW coefficient of variation 14.2(H) 11.4 - 13.8 % [facility] Mean Platelet Volume 10.3 7.6 - 12.9 fL [facility] NRBC% auto 0.0 % [facility] NRBC Absolute 0.000 0.000 - 0.000 x10(3)/mc L [facility] Blood specimen (specimen) 01/10/2021 9:55 PM EST 01/10/2021 10:01 PM EST Narrative Resulting Agency Comment Spec In Lab Ernie Thrasher MD HEMATOLOGY SCOOTER YOUNGBLOOD Performing Organization Address [facility] Co de Phone Number [facility] [place] [address] * (ABNORMAL) APTT (01/10/2021 9:55 PM EST) Partial Thromboplastin Time 66(H) 25 - 37 sec [facility] [...] MD HEMATOLOGY ORDERABLE S Performing Organization Address [facility] Co de Phone Number [facility] [place] [address] * (ABNORMAL) Prothrombin Time (01/10/2021 9:55 PM EST) Prothrombin Time 15.6(H) 9.4 - 12.5 sec [facility] International Normalization Ratio 1.4 [facility] Comment: An [...] MD HEMATOLOGY ORDERABLE S Performing Organization Address [facility] Co de Phone Number [facility] [place] [address] * (ABNORMAL) Hepatic Function Panel (01/10/2021 9:55 PM EST) Protein, Total 6.1 6.1 - 8.0 gm/dL [facility] Albumin 3.3 3.2 - 5.2 gm/dL [facility] Aspartate Aminotransferase 46(H) 0 - 39 unit/L [facility] Alanine Aminotransferase 40 0 - 55 unit/L [facility] Alkaline Phosphatase 51 40 - 130 unit/L [facility] Bilirubin, Total 0.5 0.2 - 1.3 mg/dL [facility] Bilirubin, Direct 0.2 0.0 - 0.3 mg/dL [facility] Blood specimen (specimen) 01/10/2021 9:55 PM EST 01/10/2021 10:01 PM EST Narrative Resulting Agency Comment Spec In Lab Fadi Escobar MD CHEMISTRY ORDERABLES Performing Organization Address City/[facility] Co de Phone Number [facility] [place] [address] * (ABNORMAL) Magnesium (01/10/2021 9:55 PM EST) Magnesium 0.63(L) 0.69 - 1.07 mmol/L [facility] Blood specimen (specimen) 01/10/2021 9:55 PM EST 01/10/2021 10:01 PM EST Narrative Resulting Agency Comment Spec In Lab Fadi Escobar MD CHEMISTRY ORDERABLES [facility] [place] [address] * (ABNORMAL) Basic Metabolic Panel (non-fasting) (01/10/2021 9:55 PM EST) Glucose 171 65 - 199 mg/dL [facility] Comment:Diabetes: >=200 mg/d L plus symptoms Blood Urea Nitrogen 15 10 - 20 mg/dL [facility] [...] mmol/L [facility] Carbon Dioxide 18(L) 22 - 31 mmol/L [facility] Anion Gap 13 5 - 15 mmol/L [facility] Calcium 8.1(L) 8.5 - 10.5 mg/dL [facility] Est Glomerular Filtration Rate 99 >=60 mL/min/1. 73 m?? [facility] [...] In Lab Fadi Escobar MD [place] [address] * ELECTROPHYSIOLOGY PROCEDURE (01/10/2021 6:28 PM EST) Anatomical Region Laterality Modality Other Narrative 01/22/2021 8:24 AM EDT Cardiac Electrophysiology Please refer to the operative note filed under the inpatient tab following the completion of this procedure. Fadi Escobar MD EP PROCEDURE ORDERAB LES * (ABNORMAL) Point of Care Blood Gas Historical (01/10/2021 4:20 PM EST) pH, POC 7.41 7.35 - 7.45 [facility] pCO2, POC 40 35 - 45 mmHg [facility] pO2, POC 149(H) 85 - 104 mmHg [facility] Base Excess, POC 0.0 -3.0 - 3.0 mmol/L [facility] Bicarbonate, POC 24.8 20.0 - 26.0 mmol/L [facility] Sodium, POC 139 135 - 145 mmol/L [facility] POC Potassium 3.9 3.5 - 5.0 mmol/L [facility] POC Hematocrit 42.0 40.0 - 51.0 % [facility] POC Calc Hgb 14.3 13.7 - 17.5 gm/dL [facility] Comment:The calculation of h emoglobin from hematocrit assumes a normal MCHC. POC Bgas Loc CC LAB [facility] Blood specimen (specimen) 01/10/2021 4:20 PM EST 01/11/2021 9:00 AM EST Jose Anand MD CHEMISTRY ORDERABLES [facility] [place] [address] * COVID-19 PCR (01/10/2021 12:32 PM EST) [...] using the Simplexa COVID-19 Direct Assay by [employer] as authorized by the FDA issued Emergency [...] of Pathology and Laboratory Medicine at [facility], certified under the Clinical Laboratory [...] fact sheets at the following FDA website: https://www.fda.gov/medical-devices/bjbsvgauzun-husgayk-4955-cagnx-39-dgyajrcam- use-a bbxewuoykjvnr-tjyctqe-pnqilai/fjzst-pwgdzqhchoj-xmyi SARS-CoV-2 Source [employer] Swab MA RY [facility] Nasopharyngeal swab (specimen) 01/10/2021 12:32 PM EST 01/10/2021 1:22 PM EST Comment:Symptoms->Surveillan ce Narrative Resulting Agency Comment Spec In Lab Fadi Escobar MD MICROBIOLOGY - GENER AL ORDERABLES Performing Organization Address City/State/[facility] Co de Phone Number [facility] [place] [address] documented in this encounter Visit Diagnoses Not [...] mcg/mL) multi-dose injection ONCE PRN, Starting on Fri01/11/21 at 1412, Until Fri01/11/21 at 1433, Intra-Operative (Intra-Procedure), Routine Given 01/11/2021 [...] (10 mg/mL) injection ONCE PRN, Starting on Fri01/11/21 at 1401, Until Fri01/11/21 at 1433, Cath (Intra-Procedure), Routine Given 01/11/2021 [...] Provider: Nayan William, FLAVIA)1117 (Given - Provider: Tses Santiago RN) AMIOdarone (Cordarone; Pacerone) tablet 400 [...] on Fri01/11/21 at 2100, Until Discontinued, Routine 210 (Given - Provider: Nayan William RN) 0840 [...] on Fri01/11/21 at 2200, Until Discontinued, Routine 210 (Given - Provider: Nayan William RN) 0600 [...] Provider: Admin Adt)2105 (Given - Provider: Nayan William, FLAVIA) 0840 (Given - Provider: Tess Santiago RN)2100 [...] RN)210 (Given - Provider: Nayan William RN) 0843 [...] Carmichael RN)2000 (Rate/Dose Verify - Provider: Nayan William, FLAVIA) 0000 (Rate/Dose Verify - Provider: Nayan William, FLAVIA)0145 (New Bag - Provider: Nayan William RN)0200 (Rate/Dose Verify - Provider: Nayan William, RN)0400 (Rate/Dose Verify - Provider: Nayan William, FLAVIA)0600 (Rate/Dose Verify - Provider: Nayan William, RN)1235 (New Bag - Provider: Tess Santiago [...] Procedural area)1446 (MAR Unhold - Provider: Admin Adt)2107 (Given - Provider: Nayan William, FLAVIA) 0848 (Given - Provider: Tess Santiago, FLAVIA) fentaNYL (pf) (50 mcg/mL) multi-dose injection (CANCELED) [...] Nayan William, FLAVIA)0521 (Given - Provider: Nayan William, RN)1014 (Given - Provider: Tess Santiago RN)2102 [...] last 24 to 72 hours., Routine 1341 ([facility] [...] provided on this medication record., Routine 1341 ([facility] [place] Hold - Provider: Admin Adt - Reason: Transfer to a Procedural area)1446 ([facility] Unhold - Provider: Admin Adt) Linked Groups [...] patch documented in this encounter Care Teams [employer]er Relationship Specialty Start Date End Date Bin Bowman MD [address] [place] [id number] PCP - General General Internal Medicine 04/21/1707/11 documented as of this encounter
--- OUTSIDE RECORDS SUMMARY | 2024-06-17 22:22 | XMS_ITS | Encounter Summary ---
[place] [address] Care Team Providers Care Activities Therapist Name Role Phone Bin Bowman MD Primary Care Provider [phone] Encounter Details Date Type Department Care Team (Late st Contact Info) Description 12/05/2020 Telephone Cardiology at [address] [phone] Ivonne Nicole, RN Social History Tobacco Use [...] AM EDT Office Visit Cardiology at [address] [place] [address] Mo Horne MD [facility] [place] [address] 09/21/2024 10:[address] [place] [phone] Rachel Carrasco MD [facility] [place] [address] 09/21/2024 11:00 AM EST Office [place] [phone] Rachel Carrasco MD [facility] [place] [address] documented as of this encounter Visit Diagnoses Not on filedocumented in this encounter Care Teams Activities Therapist Relationship Specialty Start Date End Date Bin Bowman MD [address] [place] [phone] PCP - General General Internal Medicine 04/21/1707/11 documented as of this encounter
--- OUTSIDE RECORDS SUMMARY | 2024-06-17 22:22 | XMS_ITS | Encounter Summary ---
Author Organization [facility] Address [facility] [place] [address] Care Team Providers Care Awning Finisher Name Role Phone Bin Bowman MD Primary Care Provider [phone] Reason for Visit * Auth/Cert Specialty Diagnoses / Procedures Referred By Zeyad mishra Referred To Contact Diagnoses SVT (supraventricular tachycardia) [I47.1], PAF (paroxysmal atrial fibrillation) [I48.0] Procedures ELECTROPHYSIOLOGY PROCEDURE TRANSESOPHAGEAL ECHO DURING CATH/EP PROCEDURE Referral ID Status Reason Start Date Expiration Date Visits Re quested Visits Authorized [id number] 1 1 Encounter Details Date Type Department Care Team (Late st Contact Info) Description 01/10/2021 10:30 AM EST - 01/10/2021 5:25 PM EST Surgery [place] [address] Fadi Escobar MD [facility] [place] [address] ELECTROPHYSIOLOGY PROCEDURE Social History Tobacco Use Types [...] a total of 1.6 LR in the catheterization laboratory technician. He was awakened from anesthesia, [...] 1 L of LR. BP improved with uskhi with MAPs sustaining above 70s. Cardiology was [...] MV E-wave Vmax 0.94 m/sec MV deceleration ueeu791.49 msec MV A-wave Vmax 0.66 m/sec MV [...] Normal Mid-Posterolateral Normal Mid-Inferior Normal Mid-Inferoseptal Normal [place]-Septal Normal [place]-Anterior Normal [place]-Lateral Normal [place]-Inferior Normal [place]-Tip Normal TTE 01/12/21 1. A trivial pericardial [...] MV E-wave Vmax 0.52 m/sec MV deceleration bnjb897.21 msec MV A-wave Vmax 0.41 m/sec MV [...] Normal Mid-Posterolateral Normal Mid-Inferior Normal Mid-Inferoseptal Normal [place]-Septal Normal [place]-Anterior Normal [place]-Lateral Normal [place]-Inferior Normal [place]-Tip Normal Pericardiocentesis 01/11/21 Conclusions: * Successful placement [...] 4:20 PM Jayne Rogel APRN Cardiology at [facility] Arrive at: Body Artist Area [phone] 02/05/2021 2:15 PM Mary Daley PA Cardiology at [facility] Arrive at: Body Artist Area [phone] General Instructions DISCHARGE INSTRUCTIONS FOLLOWING YOUR ABLATION [...] of any new medications initiated at the [facility]. The patient should be aware [...] or the Cardiac Electrophysiology Service Triage Nurse ([phone], option 3). Patient Instructions Patient Instructions on [...] Center 01/17/2021 4:[address] [facility] CARD [address]A [facility] 02/05/2021 2:[address] PA [facility] CARD [address]A [facility] PCP: Bin Bowman MD @ [phone] Relaster: Will be assigned at the next cardiology appt Your Inpatient Medical Team at [facility] Name(s) of your inpatient provider(s): Jose Anand MD- Attending physician Thor Wills MD- Computer Operations Supervisor Harini Jansen MD-Resident Physician Chavo Dominguez MD- Resident Advisor Physician Call your doctor if: Chest pain, shortness of breath, pain or swelling in legs occurs. If you have non-emergent questions between now and the time of your follow up appointments: During 8am-5pm Friday through Friday call [phone] to speak with a nurse in the cardiology clinic All other times call [phone] and ask to speak to the brazing furnace operator box person. For questions regarding this document or issues relating to this hospitalization on the Medical Service, please contact your inpatient physician through the [facility] Medical Technologist Blood Bank . Issues afterhours and on weekends will be handled by the Relaster staff on-call. documented in this encounter Discharge [...] of any new medications initiated at the [facility]. The patient should be aware [...] or the Cardiac Electrophysiology Service Triage Nurse ([phone], option 3). * Patient Instructions* Harini Jansen [...] Center 01/17/2021 4:[address] [facility] CARD [address]A [facility] 02/05/2021 2:[address] [facility] CARD [address]A [facility] PCP: Bin Bowman MD @ [phone] Relaster: Will be assigned at the next cardiology appt Your Inpatient Medical Team at [facility] Name(s) of your inpatient provider(s): Jose Anand MD- Attending physician Thor Wills MD- Computer Operations Supervisor Harini Jansen MD-Resident Physician Chavo Dominguez MD- Resident Advisor Physician Call your doctor if: Chest pain, shortness of breath, pain or swelling in legs occurs. If you have non-emergent questions between now and the time of your follow up appointments: During 8am-5pm Friday through Friday call [phone] to speak with a nurse in the cardiology clinic All other times call [phone] and ask to speak to the brazing furnace operator box person. documented in this encounter Medications at Time [...] Physical Therapy: 20 NAYAN GUERRERO PT Pager: [phone] Physical Therapy Inpatient Rehabilitation Department * Tess [...] IVs and tele removed. Pt brought to [facility] in wheelchair by staff with [...] Dr. Jansen. Jose Anand MD, MPH, VI, [facility] Pager [phone] Cardiovascular Reed CleanerEmployment Security Officerdry ice [place] [address] * Mahogany Ferreira OT - 01/13/2021 12:16 PM EST Occupational Therapy Note 01/13/21 1214 OT Time and Intention Document Type contact Total Minutes, Occupational Therapy 0 Comment, Session Not Performed Order received. Chart reviewed. Spoke with both RN and PT. No acute OT needs. Pt mobilizing independently/supervised, and managing own ADLs. Will sign off. Mahogany Ferreira OTR Pager [phone] * Nilsa Goldstein MD - 01/13/2021 10:45 AM EST Inpatient Cardiology Progress Note Patient Name: Rolo Aguilar Responsible Attending: Jose Anand MD EP Attending: Nilsa Goldstein MD Reason for continued hospitalization: Evaluation and management of pericardial effusion post ablation Active Problems: Active Hospital Problems Diagnosis ??? SVT (supraventricular tachycardia) Added automatically from request for surgery [id number] ??? PAF (paroxysmal atrial fibrillation) Added automatically from request for surgery [id number] ??? H/O cardiac radiofrequency ablation Resolved Hospital [...] HR: SR 70-100 with intermittent SVT/ atrial cfaobiphphl425-495 bpm. Meds: Scheduled Meds: ??? metoprolol tartrate [...] 1 month after Zio. Maria M Hercules, GUIDE DOG MOBILITY INSTRUCTOR 01/13/2021 Pager: [phone] Addendum Stable, overall condition appears to have [...] Note: Added automatically from request for surgery [id number] ??? Bipolar disorder ??? PAF (paroxysmal atrial fibrillation) Overview Note: Added automatically from request for surgery [id number] ??? Flutter-fibrillation ??? H/O cardiac radiofrequency ablation ??? Coronary disease Overview Note: ?? 2017: STEMI. PCI of OM1. EF 60%. Many ER visits to [facility] after this. ??? Heart palpitations ??? [...] EKG - sinus rhythm rate 96 bpm. SC 154ms, QRS 94ms, QT 354 ms, QTc [...] Dr. Escobar for results. Maria M Hercules, GUIDE DOG MOBILITY INSTRUCTOR 01/12/2021 Pager: [phone] Cardiac Electrophysiology Attending This patient was seen [...] (WRVU 11.47) performed by Colt Hewitt MD [facility] MAIN OR ??? PRO UNLISTED LAPAROSCOPIC PX LVR N/A 07/21/2018 LAPAROSCOPIC LIVER BIOPSY (WRVU 16.52) performed by Colt Hewitt MD at [facility] MAIN OR ??? PRO UPPER GI ENDOSCOPY, BIOPSY N/A 12/29/2017 UPPER GASTROINTESTINAL ENDOSCOPY,WITH BIOPSY SINGLE OR MULTIPLE (WRVU 2.49) performed by Yusuf Tucker MD at [facility] ENDOSCOPY ??? PRO UPPER GI ENDOSCOPY, DIAGNOSTIC N/A 12/29/2017 EGD, UPPER GI ENDOSCOPY performed by Yusuf Tucker MD at [facility] ENDOSCOPY ??? TONSILLECTOMY Active Non-Hospital Problems Diagnosis ??? Bipolar disorder ??? Flutter-fibrillation ??? Coronary disease ??? Heart palpitations ??? Obesity ??? Essential hypertension Social History: Pt resides with and mother in a house with 5 stairs to enter with L sided railing. Pt has a flt to basement where he resides with L sided railing. 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 Precautions/Special Considerations: Fall risk, lobato,chest tube,PIV,significant [...] Physical Therapy: 40 Macey Alarcon, PT Pager: [phone] Physical Therapy Inpatient Rehabilitation Department * Mark [...] to follow. Mark Anthony Barrera OTR/L Pager: [phone] * Jose Anand MD - 01/12/2021 7:00 [...] Dr. Dominguez. Jose Anand MD, MPH, RPVI, [facility] Pager [phone] Cardiovascular Reed CleanerEmployment Security Officerdry ice [place] [address] * Nayan William RN - 01/12/2021 6:15 AM EST Loss of arterial line overnight. MD notified. Line d/c'd by FLAVIA Gregory, pressure held by this senior writer. Non-invasive BP remains WNL. Pain and [...] that he had been found to havea uirps-pn-lhqrkkor size pericardial effusion on echocardiogram during the [...] examined this patient and discussed with the collector of internal revenue, resident, fellow. I have personally reviewed the echocardiogram (initial and repeat) and discussed with Fadi Escobar from EP. While no clear evidence of tamponade, we will tap and leave drain in for fluid. Hold anticoagulation fornow. Judy Tijerina MD, Robinson, [facility] Cardiology Attending ID: Rolo Aguilar is a [...] room. 01/11/2021: 0220: Verbal report [facility] nurseJami. Plans for transport per protocol on monitor withnurse assist. documented in this encounter H&P Notes * Judy Tijerina MD - 01/10/2021 9:24 PM EST Cardiology Admission History and Physical Patient Name: Rolo Aguilar Service: S1 Team Responsible Attending: Rayo Bianchi MD PCP: Bin Bowman MD PCP phone #: [phone] ID/Chief Complaint: Rolo Aguilar is a 50 [...] a total of 1.6 LR in the catheterization laboratory technician. He was awakened from anesthesia, [...] ventricular segmental wall motion abnormalities present at [facility] inferolateral wall, as coded in the [...] tachycardia) Added automatically from request for surgery [id number] ??? Bipolar disorder ??? PAF (paroxysmal atrial fibrillation) Added automatically from request for surgery [id number] ??? Flutter-fibrillation ??? H/O cardiac radiofrequency ablation ??? Coronary disease ?? 2017: STEMI. PCI of OM1. EF 60%. Many ER visits to [facility] after this. ??? Heart palpitations ??? [...] PLAN: Admit to Cardiology, M1S1 Team Pager #[phone] #Post-Procedural Hypotension #Atrial Flutter s/p ablation #Hx [...] examined this patient and discussed with the collector of internal revenue, resident, fellow. Judy Tijerina MD, Robinson, FACC Cardiology Attending * Fadi Escobar MD - 01/10/2021 10:24 AM EST Interval History and Physical Exam: Planned Procedure [facility] CARDIAC ELECTROPHYSIOLOGY LABORATORIES HISTORY OF PRESENT ILLNESS: Rolo Aguilar is a 50 y.o. man old gentleman referred by??Jose Culver MD, for several recent manifestly symptomatic cardiac dysrhythmias. Mr. Aguilar had presented on April 27 to the Emergency Department in [facility] with an episode of supraventricular tachycardia [...] (WRVU 11.47) performed by Colt Hewitt MD [facility] MAIN OR ??? PRO UNLISTED LAPAROSCOPIC PX LVR N/A 07/21/2018 LAPAROSCOPIC LIVER BIOPSY (WRVU 16.52) performed by Colt Hewitt MD at [facility] MAIN OR ??? PRO UPPER GI ENDOSCOPY, BIOPSY N/A 12/29/2017 UPPER GASTROINTESTINAL ENDOSCOPY,WITH BIOPSY SINGLE OR MULTIPLE (WRVU 2.49) performed by Yusuf Tucker MD at [facility] ENDOSCOPY ??? PRO UPPER GI ENDOSCOPY, DIAGNOSTIC N/A 12/29/2017 EGD, UPPER GI ENDOSCOPY performed by Yusuf Tucker MD at [facility] ENDOSCOPY ??? TONSILLECTOMY Accessory Clinical Findings: [...] Procedure Note: Patient Name: Rolo Aguilar : [id number] MR#: [id number] Case Date: 01/11/2021 Medical Technologist Blood Bank: Surgeon(s) and Role: * Erich Amato MD [...] spouse would be surrogate decision maker per [place] surrogate decision making law. (Only good for 90 days) Any patient receiving care at [facility] must abide by [place] law. The hierarchy for surrogate decision making [...] (i) The agent with financial power of planning specialist or a conservator appointed in accordance with RSA 464-A. (j) The guardian of the patient???s estate. Current Functional Ability: Current Functional Status: Independent Functional Status Prior to Admission: Prior Functional Status: Independent Home Environment: People in Home: spouse. Living Arrangements: house. Current DME: None DME Needed at DC: None Home Address Listed as: [address] [place] [address] Social & Family Supports: Extended Emergency Contact Information Primary Emergency Contact: IsaacAutumn Address: [address] [place] [address] [facility] Mobile Relation: Spouse Secondary Emergency Contact: Whitney Piedra Address: [address] [place] [address] [facility] Relation: Sibling Community Resources being provided [...] Insurance: N/A Prescription Coverage: yes Preferred Pharmacy: [facility]/pharmacy #[id number] - [place] - [address] [place] [address] [facility] - [place], [place] [address] [facility] [address] [facility] [address] [place] [address] [facility] [address] [id number] [place] [address] [facility] [address] [facility] [address] Primary Care Provider: Bin Bowman MD [phone] Patient/Caregiver Goals of Treatment: DC home Potential [...] of care planning. Chanell Fatima RN, MSN, qa software tester Office of Care Management Pager: [phone] Work * Brief Op Note - Fadi Escobar MD - 01/10/2021 7:27 PM EST Brief Operative Note Patient Name: Rolo Aguilar : [id number] MR#: [id number] Case Date: 01/10/2021 Surgeon: Surgeon(s) and Role: [...] were issues with initial functionality of the CS Disco data acquisiton system, the EP-4 stimulator, and the lateral [employer] fluoroscopic camera. Reconfigurations, engaging with technical support, [...] rate of 2500 units/hour. The short 8 Azeri sheaths in the right femoral vein were [...] of 1110 milliseconds (ms) were as follows: SC: 180 ms (P wave duration 140 ms) QRS: 100 ms QT: 480 ms 2) Atrial overdrive pacing was accomplished from the proximal-most bipole in the coronary sinus (CS), and the atrioventricular (AV) Wenckebach block CL was observed at 410 ms. There was no pre-excitation or conduction aberrancy identified. 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 Left Atrial Anatomy and Mapping: A [employer] ThermoCool SF 8 Fr ablation catheter with [...] [place] a [place] [address] Joules during minutes:seconds of actual ablation time, [...] (and/or limitations of familiarity) with the recently installedClAppRedeem mapping system. Mitral Annular Flutter Induction, Mapping, [...] Dose: 681 mGy Total Radiofrequency Energy Delivered: 144960 Joules Total Actual Ablation Time: 50:31 m:s [...] revealed that he had developed a s zgka-og-ngwxxvlw effusion with restricted filling (though not overt right atrial collapse). A pericardiocentesis subsequently was performed with a 300 cc of bloody fluid removed (please see separte report by Erich Amato MD), and the blood pressure reverted to baseline values; a 6 Azeri pericardial drain was placed, but there was no significant fluid reaccumulation. documented in this encounter Plan of Treatment Upcoming Encounters Date Type Department Care Team (Late st Contact Info) Description 06/23/2024 10:00 AM EDT Office Visit Cardiology at [address] [place] [address] Nilsa Goldstein MD [facility] [place] [address] 09/21/2024 10:[address] [place] [place] [address] Rachel Carrasco MD [facility] [place] [address] 09/21/2024 11:00 AM EST [place] [id number] Rachel Carrasco MD [facility] [place] [address] Pending Results Name Type Priority Associated Diagnoses [...] SHERWOOD M ?(Age): 1970(50y) Med Rec#: ? [id number] ?Sex: ?M ? Site Loc: ? [facility] ?Ht / Wt: ??168(cm)/198(kg) Pt. Loc: ?Adult Floor ? BSA: ?2.79 Study Date: ?? 01/13/2021 ?Pt. Type: Inpatient Tape: ? Referring: Jose Anand ??([id number]) Reading: Joss De Anda ([id number]) Composition Professor: Shahriar Juan RD, [place] Diagnosis: *Pericardial effusion (noninflammatory) (I31.3) *Paroxysmal [...] Vmax ?0.94 ? m/sec ? MV deceleration lfxx360.49 ? msec ? MV A-wave Vmax ?0.66 [...] ? Mid-Inferior ?Normal ? Mid-Inferoseptal ?Normal ? [place]-Septal ? Normal ? [place]-Anterior ? Normal ? [place]-Lateral ?Normal ? [place]-Inferior ? Normal ? [place]-Tip ?Normal ? This report has been electronically signed by: Joss De Anda MD ? 01/13/2021 11:37:34 Images reviewed and interpretation verified [facility] Cardiac Ultrasound Laboratory Procedure Note Joss De Anda MD - 01/13/2021 Procedure: Transthoracic Echocardiogram Patient: ISAAC Rodney DOB(Age): 1970(50y) Med Rec#: [id number] Sex: M Site Loc: [facility] Ht / Wt: 168(cm)/198(kg) Pt. Loc: Adult Floor BSA: 2.79 Study Date: 01/13/2021 Pt. Type: Inpatient Tape: Referring: Jose Anand ([id number]) Reading: Joss De Anda ([id number]) Composition Professor: Shahriar Juan RDCS, FASE Diagnosis: *Pericardial effusion [...] MV E-wave Vmax 0.94 m/sec MV deceleration hsrq157.49 msec MV A-wave Vmax 0.66 m/sec MV [...] Normal Mid-Posterolateral Normal Mid-Inferior Normal Mid-Inferoseptal Normal [place]-Septal Normal [place]-Anterior Normal [place]-Lateral Normal [place]-Inferior Normal [place]-Tip Normal This report has been electronically signed by: Joss De Anda MD 01/13/2021 11:37:34 Images reviewed and interpretation verified [facility] Cardiac Ultrasound Laboratory Jose Anand MD ECHO ORDERABLES * EKG 12 Lead (01/13/2021 8:06 AM EST) [facility] Ventricular rate 141 BPM MUSE SYSTEM Atrial Rate 141 BPM MUSE SYSTEM P-R Interval 146 ms MUSE SYSTEM QRS Duration 94 ms MUSE SYSTEM Q-T Interval 266 ms MUSE SYSTEM QTC Calculated (Bezet) 407 ms MUSE SYSTEM Calculated P [place] 55 degrees MUSE SYSTEM Calculated R [place] 28 degrees MUSE SYSTEM Calculated T [place] 54 degrees MUSE SYSTEM INTERPRETATION Sinus tachycardia Low voltage QRS Possible Inferior infarct (cited on or before 13-JAN-2021) Abnormal ECG When compared with ECG of 12-JAN-2021 00:07, Diffuse ST-elevations have resolved, and there are now diffuse TWI, consistent with resolving pericarditis Confirmed by MD De Anda Daniel ([id number]) on 01/13/2021 12:29:23 PM MUSE SYSTEM 01/13/2021 8:06 AM EST 01/13/2021 12:29 PM EST Jose Anand MD ECG ORDERABLES MUSE SYSTEM * (ABNORMAL) Differential, Automated (01/13/2021 5:30 AM EST) Pathologist [facility] Neutrophil % 71.0 % [facility] Neutrophil Absolute 8.18(H) 1.70 - 6.10 x10(3)/mc L [facility] Lymph % 16.6 % [facility] Lymphocytes Abs 1.9 0.9 - 3.2 x10(3)/ L [facility] Monocyte % 10.7 % [facility] Monocyte Abs 1.2(H) 0.3 - 0.9 x10(3)/ L [facility] Eos % 0.5 % [facility] Eosinophils Abs 0.1 0.0 - 0.4 x10(3)/[facility] Basophil % 0.3 % [facility] Baso Absolute 0.0 0.0 - 0.1 x10(3)/[facility] Immature Gran % 0.90 % [facility] Comment: Immature granulocytes(IG's)percentage and absolute count will include metamyelocytes, myelocytes, and promyelocytes. Blood smears from CBCs yielding IG's will be scanned manually for concordance. If this scan disagrees with the automated IG or if promyelocytes are noted, a manual differential will be performed. Immature Gran Absolute 0.10(H) 0.00 - 0.04 x10(3)/[facility] Blood specimen (specimen) 01/13/2021 5:30 AM EST 01/13/2021 5:44 AM EST Narrative Resulting Agency Comment Spec In Lab Harini Jansen MD HEMATOLOGY ORDERABLE S [facility] [place] [address] * (ABNORMAL) Hemogram (01/13/2021 5:30 AM EST) White Blood Cell 11.5(H) 4.0 - 9.5 x10(3)/[facility] Red Blood Cell 4.11(L) 4.58 - 5.54 x10(6)/[facility] Hemoglobin 11.4(L) 13.7 - 16.5 gm/dL [facility] Hematocrit 35.1(L) 40.5 - 48.5 % [facility] Mean Cell Volume 85.4 82.9 - 93.1 fL [facility] Mean Cell Hemoglobin 27.7 27.5 - 32.1 pg [facility] Mean Cell Hemoglobin Concentration 32.5 32.0 - 35.7 gm/dL [facility] Platelet 122(L) 145 - 357 x10(3)/mc L [facility] RDW Standard Deviation 44.7 36.0 - 45.0 fL [facility] RDW coefficient of variation 14.6(H) 11.4 - 13.8 % [facility] Mean Platelet Volume 10.6 7.6 - 12.9 fL [facility] NRBC% auto 0.0 % [facility] NRBC Absolute 0.000 0.000 - 0.000 x10(3)/mc L [facility] Blood specimen (specimen) 01/13/2021 5:30 AM EST 01/13/2021 5:44 AM EST Narrative Resulting Agency Comment Spec In Lab Harini Jansen MD HEMATOLOGY ORDERABLE S Performing Organization Address City/[facility]/ZIP Co de Phone Number [facility] [place] [address] * Magnesium (01/13/2021 5:30 AM EST) Magnesium 0.92 0.69 - 1.07 mmol/L [facility] Blood specimen (specimen) 01/13/2021 5:30 AM EST 01/13/2021 5:45 AM EST Narrative Resulting Agency Comment Spec In Lab Jose Anand MD CHEMISTRY ORDERABLES Performing Organization Address City/[facility]/ZIP Co de Phone Number [facility] [place] [address] * (ABNORMAL) BMP w/fasting Glucose (01/13/2021 5:30 [...] of Diabetes Mellitus, Position Statement from the [place] [employer]. ??Diabetes Care, Volume 33, Supplement 1, Nov 2009 Blood Urea Nitrogen 14 10 - 20 mg/dL [facility] [...] 107 mmol/L [facility] Carbon Dioxide 22 22 - 31 mmol/L [facility] Anion Gap 10 5 - 15 mmol/L [facility] Calcium 8.2(L) 8.5 - 10.5 mg/dL [facility] Est Glomerular Filtration Rate 102 >=60 mL/min/1. 73 m?? [facility] [...] Tijerina MD CHEMISTRY ORDERABLES Performing Organization Address City/[facility] Co de Phone Number [facility] [place] [address] * ECHO LMTD W/O CONTRAST W LMTD SPEC DOPP (01/12/2021 11:08 AM EST) EF 70 [facility] SYSTEM Anatomical Region Laterality Modality Other 01/12/2021 Narrative 01/12/2021 11:42 AM EST Procedure: ?Transthoracic Echocardiogram Patient: ?ISAAC SHERWOOD M ?(Age): 1970(50y) Med Rec#: ? [id number] ?Sex: ?M ? Site Loc: ? [facility] ?Ht / Wt: ??168(cm)/198(kg) Pt. Loc: ?Adult Floor ? BSA: ?2.79 Study Date: ?? 01/12/2021 ?Pt. Type: Inpatient Tape: ? Referring: Thor Wills ([id number]) Referring: Judy Tijerina Reading: Roxana Mesa ([id number]) Composition Professor: Willie Dugan [facility] Composition Professor 2: Suzy Randolph Diagnosis: *Pericardial effusion (noninflammatory) [...] ? Mid-Inferior ?Normal ? Mid-Inferoseptal ?Normal ? [place]-Septal ? Normal ? [place]-Anterior ? Normal ? [place]-Lateral ?Normal ? [place]-Inferior ? Normal ? [place]-Tip ?Normal ? This report has been electronically signed by: Roxana Mesa MD ? 01/12/2021 11:42:18 Images reviewed and interpretation verified [facility] Cardiac Ultrasound Laboratory Procedure Note Roxana Mesa MD - 01/12/2021 Procedure: Transthoracic Echocardiogram Patient: ISAAC Rodney (Age): 1970(50y) Med Rec#: [id number] Sex: M Site Loc: [facility] Ht / Wt: 168(cm)/198(kg) Pt. Loc: Adult Floor BSA: 2.79 Study Date: 01/12/2021 Pt. Type: Inpatient Tape: Referring: Thor Wills ([id number]) Referring: Judy Tijerina Reading: Roxana Mesa ([id number]) Composition Professor: Willie Dugan [facility] Composition Professor 2: Suzy Randolph Diagnosis: *Pericardial effusion (noninflammatory) [...] Normal Mid-Posterolateral Normal Mid-Inferior Normal Mid-Inferoseptal Normal [place]-Septal Normal [place]-Anterior Normal [place]-Lateral Normal [place]-Inferior Normal [place]-Tip Normal This report has been electronically signed by: Roxaan Mesa MD 01/12/2021 11:42:18 Images reviewed and interpretation verified [facility] Cardiac Ultrasound Laboratory Judy Tijerina MD ECHO ORDERABLES * Scan, Peripheral Blood (01/12/2021 8:19 AM EST) Plat estimate Normal [facility] RBC Morphology Abnormal [facility] Ovalocytes 1-5 /HPF [facility] Gilman Cells 1-5 /HPF [facility] Vacuolated Neut Present [facility] Blood specimen (specimen) 01/12/2021 8:19 AM EST 01/12/2021 8:36 AM EST Narrative Resulting Agency Comment Spec In Lab Harini Jansen MD HEMATOLOGY ORDERABLE S [facility] [place] [address] * (ABNORMAL) Differential, Automated (01/12/2021 8:19 AM EST) Neutrophil % 71.6 % [facility] Neutrophil Absolute 13.82(H) 1.70 - 6.10 x10(3)/mc L [facility] Lymph % 7.9 % [facility] Lymphocytes Abs 1.5 0.9 - 3.2 x10(3)/mc L [facility] Monocyte % 8.4 % [facility] Monocyte Abs 1.6(H) 0.3 - 0.9 x10(3)/mc L [facility] Eos % 11.3 % [facility] Eosinophils Abs 2.2(H) 0.0 - 0.4 x10(3)/mc L [facility] Basophil % 0.2 % [facility] Baso Absolute 0.0 0.0 - 0.1 x10(3)/mc L [facility] [...] Absolute 0.12(H) 0.00 - 0.04 x10(3)/mc L [facility] Blood specimen (specimen) 01/12/2021 8:19 AM EST 01/12/2021 8:36 AM EST Narrative Resulting Agency Comment Spec In Lab Harini Jansen MD HEMATOLOGY ORDERABLE S Performing Organization Address [facility]/ZIP Co de Phone Number [facility] [place] [address] * (ABNORMAL) Hemogram (01/12/2021 8:19 AM EST) White Blood Cell 19.3(H) 4.0 - 9.5 x10(3)/mc L [facility] Red Blood Cell 4.48(L) 4.58 - 5.54 x10(6)/mc L [facility] Hemoglobin 12.5(L) 13.7 - 16.5 gm/dL [facility] Hematocrit 38.9(L) 40.5 - 48.5 % [facility] Mean Cell Volume 86.8 82.9 - 93.1 fL [facility] Mean Cell Hemoglobin 27.9 27.5 - 32.1 pg [facility] Mean Cell Hemoglobin Concentration 32.1 32.0 - 35.7 gm/dL [facility] Platelet 179 145 - 357 x10(3)/[facility] RDW Standard Deviation 46.8(H) 36.0 - 45.0 [facility] RDW coefficient of variation 14.8(H) 11.4 - 13.8 % [facility] Mean Platelet Volume 9.9 7.6 - 12.9 fL [facility] NRBC% auto 0.0 % [facility] NRBC Absolute 0.000 0.000 - 0.000 x10(3)/[facility] Blood specimen (specimen) 01/12/2021 8:19 AM EST 01/12/2021 8:36 AM EST Narrative Resulting Agency Comment Spec In Lab Harini Jansen MD HEMATOLOGY ORDERABLE S [facility] [place] [address] * Magnesium (01/12/2021 3:55 AM EST) Pathologist [facility] Magnesium 0.95 0.69 - 1.07 mmol/L [facility] Comment:result rechecked-peg Blood specimen (specimen) Venous Draw / Unknown 01/12/2021 3:55 AM EST 01/12/2021 4:03 AM EST Narrative Resulting Agency Comment Spec In Lab Harini Jansen MD CHEMISTRY ORDERABLES [facility] [place] [address] * (ABNORMAL) BMP w/fasting Glucose (01/12/2021 3:55 [...] of Diabetes Mellitus, Position Statement from the [place] [employer]. ??Diabetes Care, Volume 33, Supplement 1, Nov 2009 Blood Urea Nitrogen 18 10 - 20 mg/dL [facility] [...] 107 mmol/L [facility] Carbon Dioxide 22 22 - 31 mmol/L [facility] Anion Gap 9 5 - 15 mmol/L [facility] Calcium 8.2(L) 8.5 - 10.5 mg/dL [facility] Est Glomerular Filtration Rate 97 >=60 mL/min/1. 73 m?? [facility] [...] CHEMISTRY ORDERABLES [facility] [place] [id number] * EKG 12 Lead (01/12/2021 12:07 AM EST) Ventricular rate 96 BPM MUSE SYSTEM Atrial Rate 96 BPM MUSE SYSTEM P-R Interval 154 ms MUSE SYSTEM QRS Duration 94 ms MUSE SYSTEM Q-T Interval 354 ms MUSE SYSTEM QTC Calculated (Bezet) 447 ms MUSE SYSTEM Calculated P [place] 44 degrees MUSE SYSTEM Calculated R [place] 16 degrees MUSE SYSTEM Calculated T [place] 23 degrees MUSE SYSTEM INTERPRETATION Normal sinus rhythm Diffuse ST elevation, consider early repolarization, pericarditis, or injury Abnormal ECG When compared with ECG of 11-JAN-2021 06:29, Acute pericarditis is suspected. I personally reviewed the tracing and edited the fellows interpretation Confirmed by fellow Fernandez Higuera ([id number]) on 01/12/2021 9:35:13 AM Confirmed by Vini Chanel ([id number]) on 01/12/2021 5:29:51 PM MUSE SYSTEM 01/12/2021 12:0 7 AM EST 01/12/2021 5:29 PM EST Judy Tijerina MD ECG ORDERABLES MUSE SYSTEM * CARDIAC CATHETERIZATION (01/11/2021 2:33 PM EST) Anatomical Region Laterality Modality Other Narrative 01/11/2021 2:49 PM EST ?[facility] ? Cardiac Catheterization/Intervention Report ? Patient Name: Rolo Aguilar M ? Procedure Date: 01/11/2021 ? A #: [id number] ? Primary Physician: Erich Amato ? Case #: [id number] ? File Name: [id number] ? Catheterization Order Number: [id number] ? [facility] ? Final Report [place], [place] ? Patient Name: ? Rolo Aguilar ? ID#: ?[id number] ? : ?1970 ? Procedure Date: ? January 11, 2021 ?Case #: ? [id number] ? Room: ? 5 ? Case Physician: ? Erich Amato MAmparo. ?Start: ?14:10 ?Fellow: ? Rachana Silver, D.O. ?Admission: ??01/10/2021 ? Procedures: ?* Pericardiocentesis [...] Procedure Note Erich Amato MD - 01/11/2021 [facility] Cardiac Catheterization/Intervention Report Patient Name: Rolo Aguilar Procedure Date: 01/11/2021 A #: [id number] Primary Physician: Erich Amato Case #: [id number] File Name: [id number] Catheterization Order Number: [id number] [facility] FinalReport [place], [place] Patient Name: Rolo Aguilar ID#:[id number] :1970 Procedure Date: January 11, 2021 Case [...] * Lactate, whole blood, send to lab ([facility]) (01/11/2021 1:10 PM EST) Lactate WB 2.1 0.5 - 2.2 mmol/L [facility] Blood specimen (specimen) 01/11/2021 1:10 PM EST 01/11/2021 1:25 PM EST Narrative Resulting Agency Comment Spec In Lab Judy Tijerina MD CHEMISTRY ORDERABLES [facility] [place] [address] * ECHO COMPLETE W CONTRAST (01/11/2021 10:21 AM EST) EF 63 HEARTLAB SYSTEM Anatomical Region Laterality Modality Other 01/11/2021 Narrative 01/11/2021 11:10 AM EST Procedure: ?Transthoracic Echocardiogram Patient: ?ISAAC Rodney ?(Age): 1970(50y) Med Rec#: ? [id number] ?Sex: ?M ? Site Loc: ? [facility] ?Ht / Wt: ??167(cm)/185(kg) Pt. Loc: ?Adult Floor ? BSA: ?2.7 Study Date: ?? 01/11/2021 ?Pt. Type: Inpatient Tape: ? Referring: Rayo Bianchi ([id number]) Reading: Khurram Barillas ([id number]) Composition Professor: Viola Moore Composition Professor 2: Humza Wilson ([id number]) Interpreting Fellow: Humza Wilson ([id number]) Diagnosis: *Supraventricular tachycardia (I47.1) *1 vial Optison [...] Vmax ?0.52 ? m/sec ? MV deceleration kynt742.21 ? msec ? MV A-wave Vmax ?0.41 [...] ? Mid-Inferior ?Normal ? Mid-Inferoseptal ?Normal ? [place]-Septal ? Normal ? [place]-Anterior ? Normal ? [place]-Lateral ?Normal ? [place]-Inferior ? Normal ? [place]-Tip ?Normal ? This report has been electronically signed by: Khurram Barillas MD ? 01/11/2021 11:04:46 Images reviewed and interpretation verified [facility] Cardiac Ultrasound Laboratory Procedure Note Khurram Barillas MD - 01/11/2021 Procedure: Transthoracic Echocardiogram Patient: ISACA Rodney (Age): 1970(50y) Med Rec#: [id number] Sex: M Site Loc: [facility] Ht / Wt: 167(cm)/185(kg) Pt. Loc: Adult Floor BSA: 2.7 Study Date: 01/11/2021 Pt. Type: Inpatient Tape: Referring: Rayo Bianchi ([id number]) Reading: Khurram Barillas ([id number]) Composition Professor: Viola Moore Composition Professor 2: Humza Wilson ([id number]) Interpreting Fellow: Humza Wilson ([id number]) Diagnosis: *Supraventricular tachycardia (I47.1) *1 vial Optison [...] MV E-wave Vmax 0.52 m/sec MV deceleration gpal587.21 msec MV A-wave Vmax 0.41 m/sec MV [...] Normal Mid-Posterolateral Normal Mid-Inferior Normal Mid-Inferoseptal Normal [place]-Septal Normal [place]-Anterior Normal [place]-Lateral Normal [place]-Inferior Normal [place]-Tip Normal This report has been electronically signed by: Khurram Barillas MD 01/11/2021 11:04:46 Images reviewed and interpretation verified [facility] Cardiac Ultrasound Laboratory Rayo Bianchi MD ECHO [...] signed by: Tashia Hairston MD, [facility] ([phone]), at 01/11/2021 10:36 AM Narrative 01/11/2021 10:36 [...] signed by: Tashia Hairston MD, [facility]([phone]), at 01/11/2021 10:36 AM Rayo Bianchi MD IMG DX ORDERABLES * POCT Glucose (01/11/2021 7:45 AM EST) [facility] Glucose, POC 136 65 - 199 mg/dL [facility] Comment: Supplemental ranges: <140 mg/dL before meals <180 mg/dL all other times of the day Blood specimen (specimen) 01/11/2021 7:45 AM EST 01/11/2021 7:45 AM EST Judy Tijerina MD POINT OF CARE TEST O RDERABLES [facility] [place] [address] * (ABNORMAL) Differential, Automated (01/11/2021 7:40 AM EST) Neutrophil % 85.3 % [facility] Neutrophil Absolute 11.24(H) 1.70 - 6.10 x10(3)/ L [facility] Lymph % 8.5 % [facility] Lymphocytes Abs 1.1 0.9 - 3.2 x10(3)/ L [facility] Monocyte % 5.5 % [facility] Monocyte Abs 0.7 0.3 - 0.9 x10(3)/ L [facility] Eos % 0.0 % [facility] Eosinophils Abs 0.0 0.0 - 0.4 x10(3)/ L [facility] Basophil % 0.1 % [facility] Baso Absolute 0.0 0.0 - 0.1 x10(3)/ L [facility] Immature [...] Absolute 0.08(H) 0.00 - 0.04 x10(3)/ L [facility] Blood specimen (specimen) 01/11/2021 7:40 AM EST 01/11/2021 7:58 AM EST Narrative Resulting Agency Comment Spec In Lab Harini Jansen MD HEMATOLOGY ORDERABLE S [facility] [place] [address] * (ABNORMAL) Hemogram (01/11/2021 7:40 AM EST) White Blood Cell 13.2(H) 4.0 - 9.5 x10(3)/mc L [facility] Red Blood Cell 4.87 4.58 - 5.54 x10(6)/mc L [facility] Hemoglobin 13.7 13.7 - 16.5 gm/dL [facility] Hematocrit 42.2 40.5 - 48.5 % [facility] Mean Cell Volume 86.7 82.9 - 93.1 [facility] Mean Cell Hemoglobin 28.1 27.5 - 32.1 pg [facility] Mean Cell Hemoglobin Concentration 32.5 32.0 - 35.7 gm/dL [facility] Platelet 224 145 - 357 x10(3)/mc L [facility] RDW Standard Deviation 45.8(H) 36.0 - 45.0 [facility] RDW coefficient of variation 14.3(H) 11.4 - 13.8 % [facility] Mean Platelet Volume 10.7 7.6 - 12.9 [facility] NRBC% auto 0.0 % [facility] NRBC Absolute 0.000 0.000 - 0.000 x10(3)/mc L [facility] Blood specimen (specimen) 01/11/2021 7:40 AM EST 01/11/2021 7:58 AM EST Narrative Resulting Agency Comment Spec In Lab Harini Jansen MD HEMATOLOGY ORDERABLE S [facility] [place] [address] * (ABNORMAL) BMP w/fasting Glucose (01/11/2021 7:40 [...] of Diabetes Mellitus, Position Statement from the [place] [employer]. ??Diabetes Care, Volume 33, Supplement 1, Nov 2009 Blood Urea Nitrogen 15 10 - 20 mg/dL [facility] [...] 107 mmol/L [facility] Carbon Dioxide 19(L) 22 - 31 mmol/L [facility] Anion Gap 11 5 - 15 mmol/L [facility] Calcium 8.1(L) 8.5 - 10.5 mg/dL [facility] Est Glomerular Filtration Rate 100 >=60 mL/min/1. 73 m?? [facility] [...] MD CHEMISTRY ORDERABLES Performing Organization Address [facility]/ZIP Co de Phone Number [facility] [place] [address] * (ABNORMAL) Lactate, whole blood, send to lab ([facility]) (01/11/2021 7:40 AM EST) Lactate WB 2.7(H) 0.5 - 2.2 mmol/L [facility] Blood specimen (specimen) 01/11/2021 7:40 AM EST 01/11/2021 8:00 AM EST Narrative Resulting Agency Comment Spec In Lab Judy Tijerina MD CHEMISTRY ORDERABLES Performing Organization Address City/[facility]/ZIP Co de Phone Number [facility] [place] [address] * (ABNORMAL) Hepatic Function Panel (01/11/2021 6:40 AM EST) Protein, Total 5.9(L) 6.1 - 8.0 gm/dL [facility] Albumin 3.3 3.2 - 5.2 gm/dL [facility] Aspartate Aminotransferase 47(H) 0 - 39 unit/L [facility] Alanine Aminotransferase 40 0 - 55 unit/L [facility] Alkaline Phosphatase 47 40 - 130 unit/L [facility] Bilirubin, Total 0.4 0.2 - 1.3 mg/dL [facility] Bilirubin, Direct 0.1 0.0 - 0.3 mg/dL [facility] Blood specimen (specimen) Venous Draw / Unknown 01/11/2021 6:40 AM EST 01/11/2021 6:48 AM EST Narrative Resulting Agency Comment Spec In Lab Harini Jansen MD CHEMISTRY ORDERABLES [facility] [place] [address] * (ABNORMAL) Troponin (01/11/2021 6:40 AM EST) Troponin-T 1.06(H) 0.00 - 0.00 ng/mL [facility] Comment: The 99th percentile for Troponin T is less than 0.01 ng/mL, any detectable cTnT concentration using this assay should be considered elevated. According to the third universal definition of myocardial infarction the following criteria with a clinical presentation consistent with acute myocardial ischemia meets the diagnosis for a myocardial infarction ([place]). Detection of a rise and/or fall of cTnT, with at least one value greater than the 99th percentile (> or = 0.01) and with at least one of the following ?? Symptoms of ischemia ?? New or presumed new significant AD-gbbrwhk-P wave (ST-T) changes or new left bundle [...] additional sample may be indicated. Reference: Third [place] Definition of Myocardial Infarction. Journal of the [place] [employer] 2012;60:1581-98 Blood specimen (specimen) 01/11/2021 6:40 AM EST 01/11/2021 6:47 AM EST Narrative Resulting Agency Comment Spec In Lab Rayo Bianchi MD CHEMISTRY ORDERABLES Performing Organization Address [facility]/ZIP Co de Phone Number [facility] [place] [address] * EKG 12 Lead (01/11/2021 6:29 AM EST) Ventricular rate 101 BPM MUSE SYSTEM Atrial Rate 101 BPM MUSE SYSTEM P-R Interval 150 ms MUSE SYSTEM QRS Duration 88 ms MUSE SYSTEM Q-T Interval 360 ms MUSE SYSTEM QTC Calculated (Bezet) 466 ms MUSE SYSTEM Calculated P [place] 46 degrees MUSE SYSTEM Calculated R [place] 47 degrees MUSE SYSTEM Calculated T [place] 29 degrees MUSE SYSTEM INTERPRETATION Sinus tachycardia Low voltage QRS Borderline ECG When compared with ECG of 11-JAN-2021 01:59, (unconfirmed) No significant change was found Confirmed by MD Alecia, Ruperto Moya ([id number]) on 01/11/2021 5:10:03 PM MUSE SYSTEM 01/11/2021 6:29 AM EST 01/11/2021 5:10 PM EST Rayo Bianchi MD ECG ORDERABLES Performing Organization Address [facility] Co de Phone Number MUSE SYSTEM * Blood culture (01/11/2021 4:51 AM EST) Blood Culture No growth at 5 days. [facility] Blood specimen (specimen) STRUCTURE OF RIGHT HAND / Unknown 01/11/2021 4:51 AM EST 01/11/2021 6:43 AM EST Comment:SET 2 Narrative Resulting Agency Comment Spec In Lab Fadi Escobar MD MICROBIOLOGY - BLOOD ORDERABLES Performing Organization Address [facility]/ZIP Co de Phone Number [facility] [place] [address] * Blood culture (01/11/2021 4:30 AM EST) Blood Culture No growth at 5 days. [facility] Blood specimen (specimen) STRUCTURE OF RIGHT HAND / Unknown 01/11/2021 4:30 AM EST 01/11/2021 6:44 AM EST Narrative Resulting Agency Comment Spec In Lab Fadi Escobar MD MICROBIOLOGY - BLOOD ORDERABLES [facility] [place] [address] * XR Chest One View (01/11/2021 2:13 [...] signed by: Chavo Bartlett DO, [facility]([phone]), at 01/11/2021 7:50 AM Rayo Bianchi MD IMG DX ORDERABLES * (ABNORMAL) Lactate, whole blood, send to lab ([facility]) (01/11/2021 2:05 AM EST) Lactate WB 3.5(H) 0.5 - 2.2 mmol/L [facility] Blood specimen (specimen) Venous Draw / Unknown 01/11/2021 2:05 AM EST 01/11/2021 2:14 AM EST Narrative Resulting Agency Comment Spec In Lab Ernie Thrasher MD CHEMISTRY ORDER BELEN [facility] [place] [address] * EKG 12 Lead (01/11/2021 1:59 AM EST) Ventricular rate 96 BPM MUSE SYSTEM Atrial Rate 96 BPM MUSE SYSTEM P-R Interval 148 ms MUSE SYSTEM QRS Duration 84 ms MUSE SYSTEM Q-T Interval 366 ms MUSE SYSTEM QTC Calculated (Bezet) 462 ms MUSE SYSTEM Calculated P [place] 52 degrees MUSE SYSTEM Calculated R [place] 60 degrees MUSE SYSTEM Calculated T [place] 19 degrees MUSE SYSTEM INTERPRETATION Normal sinus rhythm Baseline artifact Normal ECG When compared with ECG of 17-DEC-2020 02:40, Sinus rhythm has replaced Atrial fibrillation I personally reviewed the tracing and edited the fellows interpretation Confirmed by fellow Fernandez Higuera ([id number]) on 01/11/2021 10:24:41 AM Confirmed by Vini Chanel ([id number]) on 01/12/2021 5:28:31 PM MUSE SYSTEM 01/11/2021 1:59 AM EST 01/12/2021 5:28 PM EST Rayo Bianchi MD ECG ORDERABLES MUSE SYSTEM * (ABNORMAL) Differential, Automated (01/10/2021 9:55 PM EST) Pathologist [facility] Neutrophil % 88.7 % [facility] Neutrophil Absolute 14.29(H) 1.70 - 6.10 x10(3)/mc L [facility] Lymph % 8.9 % [facility] Lymphocytes Abs 1.4 0.9 - 3.2 x10(3)/mc L [facility] Monocyte % 1.4 % [facility] Monocyte Abs 0.2(L) 0.3 - 0.9 x10(3)/mc L [facility] Eos % 0.1 % [facility] Eosinophils Abs 0.0 0.0 - 0.4 x10(3)/mc L [facility] Basophil % 0.3 % [facility] Baso Absolute 0.0 0.0 - 0.1 x10(3)/mc L [facility] [...] Absolute 0.09(H) 0.00 - 0.04 x10(3)/mc L [facility] Blood specimen (specimen) 01/10/2021 9:55 PM EST 01/10/2021 10:01 PM EST Narrative Resulting Agency Comment Spec In Lab Ernie Thrasher MD HEMATOLOGY SCOOTER YOUNGBLOOD [facility] [place] [address] * (ABNORMAL) Hemogram (01/10/2021 9:55 PM EST) White Blood Cell 16.1(H) 4.0 - 9.5 x10(3)/mc L [facility] Red Blood Cell 4.79 4.58 - 5.54 x10(6)/mc L [facility] Hemoglobin 13.5(L) 13.7 - 16.5 gm/dL [facility] Hematocrit 41.1 40.5 - 48.5 % [facility] Mean Cell Volume 85.8 82.9 - 93.1 fL [facility] Mean Cell Hemoglobin 28.2 27.5 - 32.1 pg [facility] Mean Cell Hemoglobin Concentration 32.8 32.0 - 35.7 gm/dL [facility] Platelet 253 145 - 357 x10(3)/mc L [facility] RDW Standard Deviation 44.0 36.0 - 45.0 fL [facility] RDW coefficient of variation 14.2(H) 11.4 - 13.8 % [facility] Mean Platelet Volume 10.3 7.6 - 12.9 fL [facility] NRBC% auto 0.0 % [facility] NRBC Absolute 0.000 0.000 - 0.000 x10(3)/mc L [facility] Blood specimen (specimen) 01/10/2021 9:55 PM EST 01/10/2021 10:01 PM EST Narrative Resulting Agency Comment Spec In Lab Ernie Thrasher MD HEMATOLOGY SCOOTER YOUNGBLOOD Performing Organization Address [facility] Co de Phone Number [facility] [place] [address] * (ABNORMAL) APTT (01/10/2021 9:55 PM EST) Partial Thromboplastin Time 66(H) 25 - 37 sec [facility] [...] HEMATOLOGY ORDERABLE S Performing Organization Address [facility] Co de Phone Number [facility] [place] [address] * (ABNORMAL) Prothrombin Time (01/10/2021 9:55 PM EST) Prothrombin Time 15.6(H) 9.4 - 12.5 sec [facility] International Normalization Ratio 1.4 [facility] Comment: [...] HEMATOLOGY ORDERABLE S Performing Organization Address [facility] Co de Phone Number [facility] [place] [address] * (ABNORMAL) Hepatic Function Panel (01/10/2021 9:55 PM EST) Protein, Total 6.1 6.1 - 8.0 gm/dL [facility] Albumin 3.3 3.2 - 5.2 gm/dL [facility] Aspartate Aminotransferase 46(H) 0 - 39 unit/L [facility] Alanine Aminotransferase 40 0 - 55 unit/L [facility] Alkaline Phosphatase 51 40 - 130 unit/L [facility] Bilirubin, Total 0.5 0.2 - 1.3 mg/dL [facility] Bilirubin, Direct 0.2 0.0 - 0.3 mg/dL [facility] Blood specimen (specimen) 01/10/2021 9:55 PM EST 01/10/2021 10:01 PM EST Narrative Resulting Agency Comment Spec In Lab Fadi Escobar MD CHEMISTRY ORDERABLES Performing Organization Address [facility] Co de Phone Number [facility] [place] [address] * (ABNORMAL) Magnesium (01/10/2021 9:55 PM EST) Magnesium 0.63(L) 0.69 - 1.07 mmol/L [facility] Blood specimen (specimen) 01/10/2021 9:55 PM EST 01/10/2021 10:01 PM EST Narrative Resulting Agency Comment Spec In Lab Fadi Escobar MD CHEMISTRY ORDERABLES [facility] [place] [address] * (ABNORMAL) Basic Metabolic Panel (non-fasting) (01/10/2021 9:55 PM EST) Glucose 171 65 - 199 mg/dL [facility] Comment:Diabetes: >=200 mg/d L plus symptoms Blood Urea Nitrogen 15 10 - 20 mg/dL [facility] [...] 107 mmol/L [facility] Carbon Dioxide 18(L) 22 - 31 mmol/L [facility] Anion Gap 13 5 - 15 mmol/L [facility] Calcium 8.1(L) 8.5 - 10.5 mg/dL [facility] Est Glomerular Filtration Rate 99 >=60 mL/min/1. 73 m?? [facility] [...] In Lab Fadi Escobar MD [place] [address] * ELECTROPHYSIOLOGY PROCEDURE (01/10/2021 6:28 PM EST) Anatomical Region Laterality Modality Other Narrative 01/22/2021 8:24 AM EDT Cardiac Electrophysiology Please refer to the operative note filed under the inpatient tab following the completion of this procedure. Fadi Escobar MD EP PROCEDURE ORDERAB LES * (ABNORMAL) Point of Care Blood Gas Historical (01/10/2021 4:20 PM EST) pH, POC 7.41 7.35 - 7.45 [facility] pCO2, POC 40 35 - 45 mmHg [facility] pO2, POC 149(H) 85 - 104 mmHg [facility] Base Excess, POC 0.0 -3.0 - 3.0 mmol/L [facility] Bicarbonate, POC 24.8 20.0 - 26.0 mmol/L [facility] Sodium, POC 139 135 - 145 mmol/L [facility] POC Potassium 3.9 3.5 - 5.0 mmol/L [facility] POC Hematocrit 42.0 40.0 - 51.0 % [facility] POC Calc Hgb 14.3 13.7 - 17.5 gm/dL [facility] Comment:The calculation of h emoglobin from hematocrit assumes a normal MCHC. POC Bgas Loc CC LAB [facility] Blood specimen (specimen) 01/10/2021 4:20 PM EST 01/11/2021 9:00 AM EST Jose Anand MD CHEMISTRY ORDERABLES [facility] [place] [address] * COVID-19 PCR (01/10/2021 12:32 PM EST) SARS-CoV-2 RNA (Rapid) Not Detected Not Detected [facility] [...] using the Simplexa COVID-19 Direct Assay by [employer] as authorized by the FDA issued Emergency [...] Department of Pathology and Laboratory Medicine at [facility], certified under the Clinical Laboratory Improvement Amendments [...] fact sheets at the following FDA website: https://www.fda.gov/medical-devices/ugmlukzgnsl-iwgffhp-2210-xiiil-96-ejtqkogqf- use-a bpiwbghkxgeze-lasruvc-bwtacdj/evkjb-lnisgndktsj-fqad SARS-CoV-2 Source GARDEN EQUIPMENT MECHANIC Swab MA [facility] Nasopharyngeal swab (specimen) 01/10/2021 12:32 PM EST 01/10/2021 1:22 PM EST Comment:Symptoms->Surveillan ce Narrative Resulting Agency Comment Spec In Lab Fadi Escobar MD MICROBIOLOGY - GENER AL ORDERABLES Performing Organization Address City/State/[facility] Co de Phone Number [facility] [place] [address] documented in this encounter Visit Diagnoses Diagnosis [...] on Fri01/13/21 at 1800, Until Discontinued, Routine midazolam (pf) [...] William RN) 0824 (Given - Provider: Tess Santaigo RN)1449 (Given - Provider: Tess Santiago RN) [...] Routine 1532 (Given - Provider: Gina Carmichael FLAVIA) oxyCODONE (Roxicodone) tablet 5 mg (COMPLETED) 5 mg, Oral, ONCE, 1 dose, On Candi 01/11/21 at 1715, Routine 1641 (Given - Provider: Gina Carmichael RN) oxyCODONE (Roxicodone) tablet 5 mg (COMPLETED) 5 mg, Oral, ONCE, 1 dose, On 01/12/21 at 0015, STAT 2348 (Given - Provider: [...] Procedural area)1446 (MAR Unhold - Provider: Admin Adt)3 (Given - Provider: Nayan William RN) 0900 (Not Given - Provider: Tess Santiago RN - Reason: See comment - Comment: infusing)2100 (Given - Provider: Nayan William RN) 0844 (Given - Provider: Tess Santiago, RN) Continuous Medication Order 01/11/2021 01/12/2021 01/13/2021 [...] - Provider: Hanna Claros RN - Comment: aware)1341 (MAR Hold - Provider: Admin Adt - Reason: Transfer to a Procedural area)1446 (MAR Unhold - Provider: Admin Adt) sodium chloride [...] , Routine 08 (Given - Provider: Tess Santiago, RN) acetaminophen (Tylenol) tablet 975 mg (CANCELED) [...] Provider: Gina Carmichael RN)2105 (Given - Provider: Nayna William RN) 0322 (Given - Provider: Nayan [...] Provider: Admin Adt)2107 (Given - Provider: Nayan William RN) 0848 (Given - Provider: Tess Santiago RN) fentaNYL (pf) (50 mcg/mL) multi-dose injection (CANCELED) ONCE PRN, Starting on Candi 01/11/21 at 1412, Until Candi 01/11/21 at 1433, Intra-Operative (Intra-Procedure), Routine 141 (Given - Provider: Jonathon Jimenez, FLAVIA)1416 (Given [...] Intravenous, EVERY 2 HOURS PRN, Starting on 01/12/21 at 0022, Until 01/13/21 at 1737, Pain, Routine 0100 (Given - Provider: Nayan William, FLAVIA)0323 (Given - Provider: Nayan William RN)0521 (Given - Provider: Nayan William, FLAVIA)1014 (Given - Provider: Tess Santiago RN)2102 (Given - Provider: Nayan William, FLAVIA) lidocaine (Xylocaine) 1% (10 mg/mL) injection [...] 1 MIN PRN, Starting on 01/10/21 at 2329, Until 01/13/21 at 1737, flush, [...] patch documented in this encounter Care Teams Awning Finisher Relationship Specialty Start Date End Date Bin Bowman MD [address] [place] [phone] PCP - General General Internal Medicine 04/21/1707/11 documented as of this encounter
--- OUTSIDE RECORDS SUMMARY | 2024-06-17 22:22 | XMS_ITS | Encounter Summary ---
[place] [address] Care Team Providers Care Motors Assembler Name Role Phone Bin Bowman MD Primary Care Provider Encounter Details Date Type Department Care Team (Late st Contact Info) Description 12/19/2020 Telephone Cardiology at [address] [phone] Ivonne Nicole, RN Social History Tobacco Use [...] - 12/19/2020 3:21 PM EST TC from [facility] pharmacy to clarify Amiodarone prescription for 400mg, sent to pharmacy today. Confirmed new dosing schedule with pharmacist, even though patient has just picked up Amiodarone 200mg tablet prescription 4 days ago. documented in this encounter Plan of Treatment Upcoming Encounters Date Type Department Care Team (Late st Contact Info) Description 06/23/2024 10:00 AM EDT Office Visit Cardiology at [address] [place] [address] Mo Horne MD [facility] [place] [address] 09/21/2024 10:[address] [place] [address] Rachel Carrasco MD [facility] [place] [address] 09/21/2024 11:00 AM EST Office [place] [phone] Rachel Carrasco MD [facility] [place] [address] documented as of this encounter Visit Diagnoses Not on filedocumented in this encounter Care Teams Motors Assembler Relationship Specialty Start Date End Date Bin Bowman MD [address] [place] [address] PCP - General General Internal Medicine 04/21/1707/11 documented as of this encounter
--- OUTSIDE RECORDS SUMMARY | 2024-06-17 22:22 | XMS_ITS | Encounter Summary ---
Author Organization [facility] Address [facility] [place] [address] Care Team Providers Care Survival Equipment Repairer Name Role Phone Bin Bowman MD Primary Care Provider Encounter Details Date Type Department Care Team (Late st Contact Info) Description 12/14/2020 Telephone Cardiology at [address] [address] [facility] [address] Social History Tobacco Use Types Packs/Day Years [...] AM EDT Office Visit Cardiology at [address] [place] [address] [facility] [place] [address] 09/21/2024 10:[address] [place] [phone] [facility] [place] [address] 09/21/2024 11:00 AM EST Office [place] [phone] [facility] [place] [address] documented as of this encounter Visit Diagnoses Not on filedocumented in this encounter Care Teams Survival Equipment Repairer Relationship Specialty Start Date End Date Bin Bowman MD [address] [place] [address] PCP - General General Internal Medicine 04/21/1707/11 documented as of this encounter
--- OUTSIDE RECORDS SUMMARY | 2024-06-17 22:22 | XMS_ITS | Encounter Summary ---
Author Organization [facility] Address [facility] [place] [address] Care Team Providers Care Quality Systems Engineer Name Role Phone Bin Bowman MD Primary Care Provider [phone] Encounter Details Date Type Department Care Team (Latest Contact Info) Description 09/06/2020 2:00 PM EDT Office Visit Cardiology at [address] [address] Fadi Escobar MD [facility] [place] [address] H/O cardiac radiofrequency ablation; Coronary disease; Essential [...] Cardenas MD - 09/06/2020 2:00 PM EDT [facility] REFERRING PROVIDER: Bin Bowman Md [address] [place] [address] PRIMARY CARE PROVIDER: Bin Bowman MD [address] [place] [address] * Fadi Escobar MD - 09/06/2020 2:00 PM EDT Cardiac Electrophysiology [facility] September 06, 2020 (previous telehealth visit May 16, 2020) Beef Specialist: Jeremie Patton MD; Jose Culver MD Primary Care Physician: Bin Bowman MD ?? Reason for Visit: Follow up s/p radiofrequency ablation Backgound: Mr. Aguilar is a nice 49 year old gentleman referred by Jose Culver MD, for severalrecent manifestly symptomatic cardiac dysrhythmias. Mr. Aguilar had [facility] [address] with an episode of supraventricular tachycardia (SVT) [...] Coronary artery disease > July 2017 [place] [facility]: Non-STEMI (EMMY of OM1) > LVEF 55-60% [...] mg sublingual as directed ?? 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 Neurological: Grossly intact. Tests: cortical.ioo Monitor (August 02, 2020; analyzed 13 days [...] were detected. Stress Imaging (March 14, 2019; [facility]): Moderate size severely intense fixed inferolateral [...] Electrocardiogram (April 27, 2020): Sinus rhythm 82/minute, WA 156 m, QRS duration 102 ms, QTc [...] AM EDT Office Visit Cardiology at [address] [place] [address] Mo Horne MD [facility] [place] [address] 09/21/2024 10:[address] [place] [address] Rachel Carrasco MD [facility] [place]OLOGY [place], [place] [address] 09/21/2024 11:00 AM EST Office [place] [address] Rachel Carrasco MD [facility] UROLOGY [place], [place] [address] documented as of this encounter Procedures Procedure [...] (Bezet) 405 ms MUSE SYSTEM Calculated P [place] 20 degrees MUSE SYSTEM Calculated R [place] 32 degrees MUSE SYSTEM Calculated T [place] 24 degrees MUSE SYSTEM INTERPRETATION Sinus rhythm [...] documented in this encounter Care Teams Quality Systems Engineer Relationship Specialty Start Date End Date Bin Bowman MD [address] [place] [address] PCP - General General Internal Medicine 04/21/1707/11 documented as of this encounter
--- OUTSIDE RECORDS SUMMARY | 2024-06-17 22:22 | XMS_ITS | Encounter Summary ---
Author Organization [facility] Address [facility] [place] [address] Care Team Providers Care Nursing Tech Name Role Phone Bin Bowman MD Primary Care Provider Encounter Details Date Type Department Care Team (Late st Contact Info) Description 12/06/2020 Orders Only Cardiology at [address] [phone] Fadi Escobar MD [facility] [place] [address] SVT (supraventricular tachycardia) Social History Tobacco Use [...] AM EDT Office Visit Cardiology at [address] [address] Mo Horne MD [facility] [place] [address] 09/21/2024 10:[address] [place] [place] [address] Rachel Carrasco MD [facility] [place] [address] 09/21/2024 11:00 AM EST [place] [address] Rachel Carrasco MD [facility] [place] [address] documented as of this encounter Visit Diagnoses Diagnosis SVT (supraventricular tachycardia) Other specified cardiac dysrhythmias documented in this encounter Care Teams Nursing Tech Relationship Specialty Start Date End Date Bin Bowman MD [address] [place] [phone] PCP - General General Internal Medicine 04/21/1707/11 documented as of this encounter
--- OUTSIDE RECORDS SUMMARY | 2024-06-17 22:22 | XMS_ITS | Encounter Summary ---
Author Organization [facility] Address [facility] [place] [address] Care Team Providers Care Corsets Salesperson Name Role Phone Bin Bowman MD Primary Care Provider Encounter Details Date Type Department Care Team (Late st Contact Info) Description 01/02/2021 External [place] [phone] Social History Tobacco Use Types Packs/Day Years [...] AM EDT Office Visit Cardiology at [address] [place] [address] Mo Horne MD [facility] [place] [address] 09/21/2024 10:[address] [place] [phone] Rachel Carrasco MD [facility] [place] [address] 09/21/2024 11:00 AM EST Office Visit Urology at [facility] [place] [phone] Rachel Carrasco MD [facility] [place] [address] documented as of this encounter Procedures Procedure Name Priority Date/Time Associated Diagnosis Comments ECG SCAN Routine 01/02/2021 documented in this encounter Results * Scan Doc: ECG (01/02/2021) Historical Provider MD WILLIAMSON MGR SCAN EX T ORDR/RSLT documented in this encounter Visit Diagnoses Not on filedocumented in this encounter Care Teams Corsets Salesperson Relationship Specialty Start Date End Date Bin Bowman MD [address] [place] [phone] PCP - General General Internal Medicine 04/21/1707/11 documented as of this encounter
--- OUTSIDE RECORDS SUMMARY | 2024-06-17 22:22 | XMS_ITS | Encounter Summary ---
Author Organization [facility] [place] [address] Care Team Providers Care High School Chemistry Teacher Name Role Phone Bin Bowman MD Primary Care Provider Encounter Details Date Type Department Care Team (Late st Contact Info) Description 12/15/2020 Ancillary Procedure [place] [address] Bin Bowman MD [address] [place] [address] Social History Tobacco Use Types Packs/Day Years [...] AM EDT Office Visit Cardiology at [address] [address] Mo Horne MD [facility] [place] [address] 09/21/2024 10:[address] [place] [address] Rachel Carrasco MD [facility] [place] [address] 09/21/2024 11:00 AM EST [place] [phone] Rachel Carrasco MD [facility] [place] [address] documented as of this encounter Procedures Procedure Name Priority Date/Time Associated Diagnosis Comments FILM LIBRARY STORAGE ONLY DX CHEST Routine 12/15/2020 12:00 AM EST documented in this encounter Results * Film Library- Storage Only DX Chest (12/15/2020 12:00 AM EST) Narrative [facility] - 12/16/2020 11:42 PM EST This exam is auto-finalizing. It's purpose is for storage only. Bin Bowman MD IMG FILM LIBRARY ORD ERABLES [place], [place] documented in this encounter Visit Diagnoses Not on filedocumented in this encounter Care Teams High School Chemistry Teacher Relationship Specialty Start Date End Date Bin Bowman MD [address] [place] [address] PCP - General General Internal Medicine 04/21/1707/11 documented as of this encounter
--- OUTSIDE RECORDS SUMMARY | 2024-06-17 22:22 | XMS_ITS | Encounter Summary ---
Author Organization [facility] [place] [address] Care Team Providers Care Enrobing Machine Feeder Name Role Phone Bin Bowman MD Primary Care Provider [phone] Encounter Details Date Type Department Care Team (Late st Contact Info) Description 12/14/2020 Telephone Cardiology at [address] [phone] Teri Bates Social History Tobacco Use Types [...] Call from Esmer @ Dr. Culver office, [facility]. Pt seen in the ED again last night. Started on Joe zhu. Esmer will be faxing updated ED records to us this morning. Would like to move up pt's mapping and ablation date sooner than 01/16/21. LVM for Jose Hogue, RN @ [id number]. Pt has clinic appt with SONNY Hammond on 12/18/20. Teri Teague Electrophysiology Scheduling [id number] option 2 documented in this encounter Plan of Treatment Upcoming Encounters Date Type Department Care Team (Late st Contact Info) Description 06/23/2024 10:00 AM EDT Office Visit Cardiology at [address] [place] [address] Mo Horne MD [facility] [place] [address] 09/21/2024 10:[address] [place] [place] [phone] Rachel Carrasco MD [facility] [place] [address] 09/21/2024 11:00 AM EST [place] [phone] Rachel Carrasco MD [facility] [place] [address] documented as of this encounter Visit Diagnoses Not on filedocumented in this encounter Care Teams Enrobing Machine Feeder Relationship Specialty Start Date End Date Bin Bowman MD [address] [place] [address] PCP - General General Internal Medicine 04/21/1707/11 documented as of this encounter
--- OUTSIDE RECORDS SUMMARY | 2024-06-17 22:22 | XMS_ITS | Encounter Summary ---
Author Organization [facility] Address [facility] [place] [address] Care Team Providers Care Quarry Equipment Operator Name Role Phone Bin Bowman MD Primary Care Provider Encounter Details Date Type Department Care Team (Late st Contact Info) Description 01/03/2021 Telephone Cardiology at [address] [address] Obdulio Dominique MD [facility] [place] [address] Social History Tobacco Use Types Packs/Day Years [...] patient to abalation - transfer cancelled to [facility] The above recommendations are based on my conversation with the referring provider. I have not personally interviewed or examined this patient. Obdulio Dominique MD documented in this encounter Plan of Treatment Upcoming Encounters Date Type Department Care Team (Late st Contact Info) Description 06/23/2024 10:00 AM EDT Office Visit Cardiology at [address] [place] [phone] Mo Horne MD [facility] [place] [address] 09/21/2024 10:[address] [place] [place] [phone] Rachel Carrasco MD [facility] [place] [address] 09/21/2024 11:00 AM EST Office [place] [phone] Rachel Carrasco MD [facility] [place] [address] documented as of this encounter Visit Diagnoses Not on filedocumented in this encounter Care Teams Quarry Equipment Operator Relationship Specialty Start Date End Date Bin Bowman MD [address] [place] [address] PCP - General General Internal Medicine 04/21/1707/11 documented as of this encounter
--- OUTSIDE RECORDS SUMMARY | 2024-06-17 22:22 | XMS_ITS | Encounter Summary ---
Author Organization [facility] [place] [address] Care Team Providers Care Refining Equipment Operator Name Role Phone Bin Bowman MD Primary Care Provider Encounter Details Date Type Department Care Team (Late st Contact Info) Description 12/16/2020 11:40 PM EST Ancillary Procedure [place] [address] Bin Bowman MD [address] [place] [address] Social History Tobacco Use Types Packs/Day Years [...] AM EDT Office Visit Cardiology at [address] [address] [facility] [place] [address] 09/21/2024 10:[address] [place] [address] [facility] [place] [address] 09/21/2024 11:00 AM EST Office [place] [address] [facility] [place] [address] documented as of this encounter Procedures Procedure Name Priority Date/Time Associated Diagnosis Comments FILM LIBRARY STORAGE ONLY DX CHEST Routine 12/16/2020 11:37 PM EST documented in this encounter Results * Film Library- Storage Only DX Chest (12/16/2020 11:37 PM EST) Narrative [facility] - 12/16/2020 11:37 PM EST This exam is auto-finalizing. It's purpose is for storage only. Bin Bowman MD IMG FILM LIBRARY ORD ERABLES Performing Organization Address City/State/[facility] Co de Phone Number [place], [place] documented in this encounter Visit Diagnoses Not on filedocumented in this encounter Care Teams Refining Equipment Operator Relationship Specialty Start Date End Date Bin Bowman MD [address] [place] [address] PCP - General General Internal Medicine 04/21/1707/11 documented as of this encounter
--- OUTSIDE RECORDS SUMMARY | 2024-06-17 22:22 | XMS_ITS | Encounter Summary ---
Author Organization [facility] [place] [address] Care Team Providers Care Manager Front Office Name Role Phone Bin Bowman MD Primary Care Provider [phone] Encounter Details Date Type Department Care Team (Late st Contact Info) Description 12/16/2020 Telephone Cardiology at [address] [address] Paul Asher [facility] [place] [address] Social History Tobacco Use Types Packs/Day Years [...] final recs to EP. Siddhartha Asher DO Maintenance Controller; PGY-5 12/16/2020 documented in this encounter Plan of Treatment Upcoming Encounters Date Type Department Care Team (Late st Contact Info) Description 06/23/2024 10:00 AM EDT Office Visit Cardiology at [address] [phone] Mo Horne MD [facility] [place] [address] 09/21/2024 10:[address] [place] [address] Rachel Carrasco MD [facility] [place] [address] 09/21/2024 11:00 AM EST [place] [phone] Rachel Carrasco MD [facility] [place] [address] documented as of this encounter Visit Diagnoses Not on filedocumented in this encounter Care Teams Manager Front Office Relationship Specialty Start Date End Date Bin Bowman MD [address] [place] [address] PCP - General General Internal Medicine 04/21/1707/11 documented as of this encounter
--- OUTSIDE RECORDS SUMMARY | 2024-06-17 22:22 | XMS_ITS | Encounter Summary ---
Author Organization [facility] Address [facility] [place] [address] Care Team Providers Care Superintendent Custodian Janitor Name Role Phone Bin Bowman MD Primary Care Provider Reason for Visit * Reason Onset Date Comments Medication Refill 11/07/2020 Metoprolol Encounter Details Date Type Department Care Team (Late st Contact Info) Description 11/07/2020 Refill Cardiology at [address] [address] Mary Daley PA [facility] [place] [address] Medication Refill (Metoprolol) Social History Tobacco Use [...] AM EDT Office Visit Cardiology at [address] [address] Mo Horne MD [facility] [place] [address] 09/21/2024 10:[address] [place] [address] Rachel Carrasco MD [facility] [place] [address] 09/21/2024 11:00 AM EST Office [place] [address] Rachel Carrasco MD [facility] [place] [address] documented as of this encounter Visit Diagnoses Diagnosis Coronary disease Essential hypertension Unspecified essential hypertension Heart palpitations Palpitations documented in this encounter Care Teams Superintendent Custodian Janitor Relationship Specialty Start Date End Date Bin Bowman MD [address] [place] [address] PCP - General General Internal Medicine 04/21/1707/11 documented as of this encounter
--- OUTSIDE RECORDS SUMMARY | 2024-06-17 22:22 | XMS_ITS | Encounter Summary ---
Author Organization [facility] [place] [address] Care Team Providers Care Prototype Sewer Name Role Phone Bin Bowman MD Primary Care Provider [phone] Reason for Visit * Reason Onset Date Comments Questions 10/30/2020 Medication adjus tment Encounter Details Date Type Department Care Team (Late st Contact Info) Description 10/30/2020 Telephone Cardiology at [address] [address] Ivonne Nicole, RN Questions (Medication adjustment) Social [...] following up regarding phone call from Mrs Agiular on 10/30, regarding complaint of palpitations. Mr [...] AM EDT Office Visit Cardiology at [address] [place] [address] Mo Horne MD [facility] [place] [address] 09/21/2024 10:[address] [place] [address] Rachel Carrasco MD [facility] [place] [address] 09/21/2024 11:00 AM EST Office [place] [address] Rachel Carrasco MD [facility] [place] [address] documented as of this encounter Visit Diagnoses Not on filedocumented in this encounter Care Teams Prototype Sewer Relationship Specialty Start Date End Date Bin Bowman MD [address] [place] [address] PCP - General General Internal Medicine 04/21/1707/11 documented as of this encounter
--- OUTSIDE RECORDS SUMMARY | 2024-06-17 22:22 | XMS_ITS | Encounter Summary ---
Author Organization [facility] Address [facility] [place] [address] Care Team Providers Care Vp Packaging Name Role Phone Bin Bowman MD Primary Care Provider [phone] Encounter Details Date Type Department Care Team (Late st Contact Info) Description 01/02/2021 Telephone Cardiology at [address] [address] Obdulio Dominique MD [facility] [place] [address] Social History Tobacco Use Types Packs/Day Years [...] to try amiodarone gtt and transfer to [facility]. The above recommendations are based on my conversation with the referring provider. I have not personally interviewed or examined this patient. Obdulio Dominique MD documented in this encounter Plan of Treatment Upcoming Encounters Date Type Department Care Team (Late st Contact Info) Description 06/23/2024 10:00 AM EDT Office Visit Cardiology at [address] [address] Mo Horne MD [facility] [place] [address] 09/21/2024 10:[address] [place] [place] [address] Rachel Carrasco MD [facility] [place] [address] 09/21/2024 11:00 AM EST [place] [address] Rachel Carrasco MD [facility] [place] [address] documented as of this encounter Visit Diagnoses Not on filedocumented in this encounter Care Teams Vp Packaging Relationship Specialty Start Date End Date Bin Bowman MD [address] [place] [address] PCP - General General Internal Medicine 04/21/1707/11 documented as of this encounter
--- OUTSIDE RECORDS SUMMARY | 2024-06-17 22:22 | XMS_ITS | Encounter Summary ---
Author Organization [facility] Address [facility] [place] [address] Care Team Providers Care Salesperson Flowers Name Role Phone Bin Bowman MD Primary Care Provider Encounter Details Date Type Department Care Team (Late st Contact Info) Description 12/16/2020 [place] [address] Humza Wilson MD [facility] [place] [address] Social History Tobacco Use Types Packs/Day Years [...] PM Referring provider: Dr. Ocampo Patient location: [facility] Past medical history: Past Medical History: ??1) ??Supraventricular tachycardia (see above) ??2) ??Atrial tachycardia/fibrillation (see above) ??3)?Coronary artery [place] >[place] [facility]I (EMMY of OM1) >?LVEF [...] AM EDT Office Visit Cardiology at [address] [place] [address] Mo Horne MD [facility] [place] [address] 09/21/2024 10:[address] [place] [address] Rachel Carrasco MD [facility] [place] [address] 09/21/2024 11:00 AM EST Office [place] [address] Rachel Carrasco MD [facility] [place] [address] documented as of this encounter Visit Diagnoses Not on filedocumented in this encounter Care Teams Salesperson Flowers Relationship Specialty Start Date End Date Bin Bowman MD [address] [place] [address] PCP - General General Internal Medicine 04/21/1707/11 documented as of this encounter
--- OUTSIDE RECORDS SUMMARY | 2024-06-17 22:22 | XMS_ITS | Encounter Summary ---
Author Organization [facility] [place] [address] Care Team Providers Care Neurology Teacher Name Role Phone Bin Bowman MD Primary Care Provider [phone] Reason for Visit * Reason Onset Date Comments Follow-up 01/04/2021 Encounter Details Date Type Department Care Team (Late st Contact Info) Description 01/04/2021 Telephone Cardiology at [address] [phone] Lennie Garcia, RN Follow-up Social History Tobacco [...] Was able to get confirmation by EP lab aidlaborer & Dr. Escobar to move forward with [...] AM EDT Office Visit Cardiology at [address] [phone] Mo Horne MD [facility] [place] [address] 09/21/2024 10:[address] [place] [place] [address] Rachel Carrasco MD [facility] [address] 09/21/2024 11:00 AM EST [place] [address] Rachel Carrasco MD [facility] [address] documented as of this encounter Visit Diagnoses Not on filedocumented in this encounter Care Teams Neurology Teacher Relationship Specialty Start Date End Date Bin Bowman MD [address] [place] [address] PCP - General General Internal Medicine 04/21/1707/11 documented as of this encounter
--- OUTSIDE RECORDS SUMMARY | 2024-06-17 22:22 | XMS_ITS | Encounter Summary ---
Author [facility] [place] [address] Care Team Providers Care Control Panel Operator Crude Unit Name Role Phone Bin Bowman MD Primary Care Provider Encounter Details Date Type Department Care Team (Late Contact Info) Description 12/21/2020 Telephone Electrophysiology [place] [address] Teetee Hugo Social History Tobacco Use Types [...] - 12/21/2020 9:12 AM ESTSummary: EP Procedure Field Worker Checklist - 01/16 EP Procedure Field Worker Patient Coordination Checklist DATE CALLED: CASTILLO HAS SENT [employer] MESSAGE TO PATIENT WHO AGREED TO DATE/TIME DATE OF PROCEDURE: 01/16 0630/0730 PERFORMING MD MEREDITH PROCEDURE TYPE: SVT ABLATION COMPANY: [employer] ANESTHESIA TYPE: GA IMAGING NEEDED: N/A DATES [...] AM EDT Office Visit Cardiology at [address] [place] [address] Mo Horne MD [facility] [place] [address] 09/21/2024 10:[address] Scan at [place] [phone] Rachel Carrasco MD [facility] [address] 09/21/2024 11:00 AM EST Office Visit [place] [address] Rachel Carrasco MD [facility] [place] [address] documented as of this encounter Visit Diagnoses Not on filedocumented in this encounter Care Teams Control Panel Operator Crude Unit Relationship Specialty Start Date End Date Bin Bowman MD [address] [place] [address] PCP - General General Internal Medicine 04/21/1707/11 documented as of this encounter
--- OUTSIDE RECORDS SUMMARY | 2024-06-17 22:22 | XMS_ITS | Encounter Summary ---
Author Organization [facility] Address [facility] [place] [address] Care Team Providers Care Payroll Accounting Specialist Name Role Phone Bin Bowman MD Primary Care Provider Encounter Details Date Type Department Care Team (Late st Contact Info) Description 01/02/2021 Telephone Cardiology at [address] [address] Obdulio Dominique MD [facility] [place] [address] Social History Tobacco Use Types Packs/Day Years [...] apnea, RICARDO who was recently hospitalized from [facility] for AFlutter w/ RVR who called in [...] patient to have his drive him to [facility] for ECG to identify arrhythmia if that is the underlying issue. From there, further treatment can be performed. Obdulio Dominique MD documented in this encounter Plan of Treatment Upcoming Encounters Date Type Department Care Team (Late st Contact Info) Description 06/23/2024 10:00 AM EDT Office Visit Cardiology at [address] [place] [address] Mo Horne MD [facility] [place] [address] 09/21/2024 10:[address] [place] [address] Rachel Carrasco MD [facility] [place] [address] 09/21/2024 11:00 AM EST Office [place] [address] Rachel Carrasco MD [facility] [place] [address] documented as of this encounter Visit Diagnoses Not on filedocumented in this encounter Care Teams Payroll Accounting Specialist Relationship Specialty Start Date End Date Bin Bowman MD [address] [place] [address] PCP - General General Internal Medicine 04/21/1707/11 documented as of this encounter
--- OUTSIDE RECORDS SUMMARY | 2024-06-17 22:22 | XMS_ITS | Encounter Summary ---
Author Organization [facility] Address [facility] [place] [address] Care Team Providers Care Dry Cleaning Supervisor Name Role Phone Bin Bowman MD Primary Care Provider [phone] Encounter Details Date Type Department Care Team (Late st Contact Info) Description 01/02/2021 Telephone Cardiology at [address] [address] Obdulio Dominique MD [facility] [place] [address] Social History Tobacco Use Types Packs/Day Years [...] start amiodarone gtt and [place] [facility] [place], may need to attempt another cardioversion The above recommendations are based on my conversation with the referring provider. I have not personally interviewed or examined this patient. Obdulio Dominique MD documented in this encounter Plan of Treatment Upcoming Encounters Date Type Department Care Team (Late st Contact Info) Description 06/23/2024 10:00 AM EDT Office Visit Cardiology at [address] [place] [address] Mo Horne MD [facility] [place] [address] 09/21/2024 10:[address] [place] [address] Rachel Carrasco MD [facility] [place] [address] 09/21/2024 11:00 AM EST Office [place] [address] Rachel Carrasco MD [facility] [place] [address] documented as of this encounter Visit Diagnoses Not on filedocumented in this encounter Care Teams Dry Cleaning Supervisor Relationship Specialty Start Date End Date Bin Bowman MD [address] [place] [address] PCP - General General Internal Medicine 04/21/1707/11 documented as of this encounter
--- OUTSIDE RECORDS SUMMARY | 2024-06-17 22:22 | XMS_ITS | Encounter Summary ---
Author Organization [facility] Address [facility] [place] [address] Care Team Providers Care Real Estate Associate Attorney Name Role Phone Bin Bowman MD Primary Care Provider Encounter Details Date Type Department Care Team (Late st Contact Info) Description 12/15/2020 External Results [place] [address] Social History Tobacco Use Types Packs/Day Years [...] AM EDT Office Visit Cardiology at [address] [place] [address] Mo Horne MD [facility] [place] [address] 09/21/2024 10:[address] [place] [address] Rachel Carrasco MD [facility] [place] [address] 09/21/2024 11:00 AM EST Office Visit Urology at [facility] [place] [place] [address] Rachel Carrasco MD [facility] [place] [address] documented as of this encounter Procedures Procedure Name Priority Date/Time Associated Diagnosis Comments ECG SCAN Routine 12/15/2020 documented in this encounter Results * Scan Doc: ECG (12/15/2020) Historical Provider MD [facility] MGR SCAN EX T ORDR/RSLT documented in this encounter Visit Diagnoses Not on filedocumented in this encounter Care Teams Real Estate Associate Attorney Relationship Specialty Start Date End Date Bin Bowman MD [address] [place] [address] PCP - General General Internal Medicine 04/21/1707/11 documented as of this encounter
--- OUTSIDE RECORDS SUMMARY | 2024-06-17 22:22 | XMS_ITS | Encounter Summary ---
Author Organization [facility] Address [facility] [place] [address] Care Team Providers Care Welfare Interviewer Name Role Phone Bin Bowman MD Primary Care Provider Encounter Details Date Type Department Care Team (Late st Contact Info) Description 12/14/2020 External [place] [address] Social History Tobacco Use Types Packs/Day Years [...] AM EDT Office Visit Cardiology at [address] [place] [address] Mo Horne MD [facility] [place] [address] 09/21/2024 10:[address] [place] [address] Rachel Carrasco MD [facility] UROLOGY [place], [place] [address] 09/21/2024 11:00 AM EST Office Visit Urology at [facility] [place] [place] [address] Rachel Carrasco MD [facility] [place] [address] documented as of this encounter Procedures Procedure Name Priority Date/Time Associated Diagnosis Comments ECG SCAN Routine 12/14/2020 ECG SCAN Routine 12/14/2020 ECG SCAN Routine 12/14/2020 documented in this encounter Results * Scan Doc: ECG (12/14/2020) Historical Provider MD MEDIA MGR SCAN EX T ORDR/RSLT * Scan Doc: ECG (12/14/2020) Historical Provider MD MEDIA MGR SCAN EX T ORDR/RSLT * Scan Doc: ECG (12/14/2020) Historical Provider MD MEDIA MGR SCAN EX T ORDR/RSLT documented in this encounter Visit Diagnoses Not on filedocumented in this encounter Care Teams Welfare Interviewer Relationship Specialty Start Date End Date Bin Bowman MD [address] [place] [address] PCP - General General Internal Medicine 04/21/1707/11 documented as of this encounter
--- OUTSIDE RECORDS SUMMARY | 2024-06-17 22:22 | XMS_ITS | Encounter Summary ---
Author Organization [facility] Address [facility] [place] [address] Care Team Providers Care Test Lead Application Testing Name Role Phone Bin Bowman MD Primary Care Provider Reason for Referral * Diagnostic Test (Routine) - Closed Specialty Diagnoses / Procedures Referred By Zeyad mishra Referred To Contact Cardiology Diagnoses H/O cardiac radiofrequency ablation Procedures Mary Contreras PA [facility] [place] [address] [facility] [place] [address] Referral ID Status Reason Start Date Expiration Date V isits Requested Visits Authorized [id number] Closed Specialty Service Requested 08/01/2020 08/26/2020 1 1 Encounter Details Date Type Department Care Team (Late st Contact Info) Description 07/18/2020 Orders Only Cardiology at [address] [phone] aMry Daley PA [facility] [place] [address] H/O cardiac radiofrequency ablation Social [...] AM EDT Office Visit Cardiology at [address] [place] [address] Mo Horne MD [facility] [place] [address] 09/21/2024 10:[address] [place] [place] [address] Rachel Carrasco MD [facility] [place] [address] 09/21/2024 11:00 AM EST Office [place] [address] Rachel Carrasco MD [facility] [place] [address] documented as of this encounter Results * [...] ablation documented in this encounter Care Teams Test Lead Application Testing Relationship Specialty Start Date End Date Bin Bowman MD [address] [address] PCP - General General Internal Medicine 04/21/1707/11 documented as of this encounter
--- OUTSIDE RECORDS SUMMARY | 2024-06-17 22:22 | XMS_ITS | Encounter Summary ---
Author Organization [facility] Address [facility] [place] [address] Care Team Providers Care Special Library Librarian Name Role Phone Bin Bowman MD Primary Care Provider [phone] Encounter Details Date Type Department Care Team (Late st Contact Info) Description 01/02/2021 Orders Only Cardiology at [address] [address] Fadi Escobar MD [facility] [place] [address] Flutter-fibrillation Social History Tobacco Use Types Packs/Day [...] 10:00 AM EDT Office Visit Cardiology at [address] [address] Mo Horne MD [facility] [place] [address] 09/21/2024 10:[address] [place] [address] Rachel Carrasco MD [facility] [place] [address] 09/21/2024 11:00 AM EST Office [place] [address] Rachel Carrasco MD [facility] [place] [address] documented as of this encounter Procedures Procedure Name Priority Date/Time Associated Diagnosis Comments ECHOCARDIOGRAM TRANSTHORACIC Routine 01/11/2021 documented in this encounter Results * Echo Transthoracic (Complete) (01/11/2021) Anatomical Region Laterality Modality Other 01/11/2021 Narrative 01/11/2021 8:39 AM EST Amended Report Procedure: ?Transthoracic Echocardiogram Patient: ?Jeff Rolo ?(Age): 1970(50y) Med Rec#: ? [id number] ?Sex: ? Site Loc: ? Ht / Wt: ??(cm)/ (kg) ? Pt. Loc: ? Study Date: ?? 01/11/2021 ?Pt. Type: Tape: ? Reading: Khurram Barillas ([id number]) Community Arts Centre Manager: [employer] Window Decorator: Chintan Gallegos ([id number]) Interpreting Fellow: Chintan Gallegos ([id number]) Diagnosis: SUMMARY: 1. Limited on-call echocardiogram performed [...] 01/11/2021 10:02:13 Images reviewed and interpretation verified [facility] Procedure Note Khurram Barillas MD - 01/11/2021 Amended Report Procedure: Transthoracic Echocardiogram Patient: Jeff MOTT(Age): 1970(50y) Med Rec#: [id number] Sex: Site Loc: Ht / Wt: (cm)/ (kg) Pt. Loc: Study Date: 01/11/2021 Pt. Type: Tape: Reading: Khurram Barillas ([id number]) Community Arts Centre Manager: [employer] Window Decorator: Chintan Gallegos ([id number]) Interpreting Fellow: Chintan Gallegos ([id number]) Diagnosis: SUMMARY: 1. Limited on-call echocardiogram performed [...] 01/11/2021 10:02:13 Images reviewed and interpretation verified [facility] Unknown ECHO ORDERABLES documented in this encounter Visit Diagnoses Diagnosis Flutter-fibrillation Other premature beats documented in this encounter Care Teams Special Library Librarian Relationship Specialty Start Date End Date Bin Bowman MD [address] [address] PCP - General General Internal Medicine 04/21/1707/11 documented as of this encounter
--- OUTSIDE RECORDS SUMMARY | 2024-06-17 22:22 | XMS_ITS | Encounter Summary ---
Author Organization [place] [address] Care Team Providers Care Parts Room Associate Name Role Phone Bin Bowman MD Primary Care Provider Reason for Visit * Reason Onset Date Comments Pre Procedure Call 01/02/2021 Encounter Details Date Type Department Care Team (Late st Contact Info) Description 01/02/2021 Telephone Cardiology at [address] [phone] Lennie Garcia RN Pre Procedure Call Social [...] ESTSummary: Pre Procedure Call: SVT ablation [place] INTERPRETIVE [employer]ER COORDINATION CHECKLIST Patient Name: Rolo Aguilar Patient [...] call 01/15/21. Understands that they will need special needs bus driver on day of discharge Notified pt that Shanks catheter may be placed on day of procedure depending on type & duration of case. documented in this encounter Plan of Treatment Upcoming Encounters Date Type Department Care Team (Late st Contact Info) Description 06/23/2024 10:00 AM EDT Office Visit Cardiology at [address] [place] [phone] Mo Horne MD [facility] [place] [address] 09/21/2024 10:[address] [place] [place] [phone] Rachel Carrasco MD [facility] [address] 09/21/2024 11:00 AM EST [place] [phone] Rachel Carrasco MD [facility] [address] documented as of this encounter Visit Diagnoses Not on filedocumented in this encounter Care Teams Parts Room Associate Relationship Specialty Start Date End Date Bin Bowman MD [address] [place] [id number] PCP - General General Internal Medicine 04/21/1707/11 documented as of this encounter
--- OUTSIDE RECORDS SUMMARY | 2024-06-17 22:22 | XMS_ITS | Encounter Summary ---
Author Organization [facility] Address [facility] [place] [address] Care Team Providers Care Upstairs Maid Name Role Phone Bin Bowman MD Primary Care Provider Reason for Visit * Auth/Cert Specialty Diagnoses / Procedures Referred By Zeyad t Referred To Contact Diagnoses Flutter-fibrillation Afib w/ RVR Procedures EMERGENCY IPI Referral ID Status Reason Start Date Expiration Date Visits Re quested Visits Authorized [id number] 1 1 Encounter Details Date Type Department Care Team (Latest Contact Info) Description 2020 1:31 AM EST - 12/19/2020 1:47 PM [facility] Hospital Encounter [place] [address] Khurram Barillas MD [facility] [place] [address] Fadi Escobar MD [facility] [place] [address] Coronary disease; Flutter-fibrillatio n Discharge Disposition: Home [...] Rolo Aguilar Patient Age: 50 y.o. Language: Indian Race: White Ethnicity: Not nor Admit date: [...] script with lower dose will be sent [facility] long-term). ?? Metoprolol succinate 50 mg tablet: [...] in touch with the office, please call [phone]. Inpatient Provider Contact Information: Cardiac Electrophysiology - [...] sleep apnea, RICARDO who was transferred from [facility] due to recurrent A flutter with RVR. Hospital Course: Patient was started at OSH on Amiodarone which was continued inpatient at [facility]. He was loaded on about 4 grams via IV before transitioning to Amiodarone 400 mg BID. He had recurrent atrial fibrillation and was subsequently reloaded on IV Amiodarone and after an additional 1 gram, he converted to sinus rhythm in the compensation advisor hours of 2020. IV Amiodarone was stopped [...] script with lower dose will be sent [facility] long-term). ?? Metoprolol succinate 50 mg tablet: [...] in touch with the office, please call [phone]. Important Things to Remember While On Amiodarone [...] checked by your primary health provider or bilingual case manager if they are agreeable or by the [facility] Electrophysiology group. Amiodarone is a peculiar [...] sunscreen. Estefanía Page, et al. Heart Rhythm 2007;4:0006-9364 Heart Rhythm Society Amiodarone Monitoring Recommendations Lab [...] think there has been an overdose, call ([place] [facility]), your local poison control center [...] doctor or pharmacist. Information was adapted from [employer]???s ???Amiodarone: Patient drug information?? http://www.Activation Life/contents/fltpgpxyak-csdjbxd-nmzl-information?source=[facility] ch_result&search=patient+information+amiodarone&selectedTitle=1~150 Discharge References/Attachments EPS (Electrophysiology Study) and Catheter Ablation: Pre-op (Indian) documented in this encounter Discharge Instructions * [...] think there has been an overdose, call ([place] [facility]), your local poison control center [...] doctor or pharmacist. Information was adapted from [employer]???s ???Amiodarone: Patient drug information?? http://www.Lio Social.Yoyocard/contents/ellelvtnqm-gqkqibl-xucn-information?source=surjit ch_result&search=patient+information+amiodarone&selectedTitle=1~150 * Patient Instructions* Juan Antonio Mathew PA - 12/19/2020 8:38 AM EST DISCHARGE INSTRUCTIONS 1. Medications as listed above. ?? Amiodarone 400 mg tablet: Take 1 tablet by mouth three times daily x 5 days, then one tablet daily x 7 days, then 200 mg (1/2 tablet) daily thereafter (a new script with lower dose will be sent [facility] long-term). ?? Metoprolol succinate 50 mg tablet: [...] in touch with the office, please call [phone]. Important Things to Remember While On Amiodarone [...] checked by your primary health provider or bilingual case manager if they are agreeable or by the [facility] Electrophysiology group. Amiodarone is a peculiar [...] sunscreen. Goldschlamalena N, et al. Heart Rhythm 2007;4:2574-8059 Heart Rhythm Society Amiodarone Monitoring Recommendations Lab [...] EPS (Electrophysiology Study) and Catheter Ablation: Pre-op (Indian) documented in this encounter Medications at Time [...] converted from AF --> SR in the compensation advisor hours of 12/17. IV amiodarone was stopped [...] sleep apnea, RICARDO who was transferred from [facility] due to recurrent and difficult to [...] January SONNY Frank 12/18/2020 Associated attestation - Breonna Terrell MD - 12/18/2020 11:16 AM EST [...] sleep apnea, RICARDO who was transferred from [facility] due to recurrent A flutter with [...] Colt Hewitt MD [facility] MAIN OR ??? PRO UNLISTED LAPAROSCOPIC PX LVR N/A 07/21/2018 LAPAROSCOPIC LIVER BIOPSY (WRVU 16.52) performed by Colt Hewitt MD at [facility] MAIN OR ??? PRO UPPER GI ENDOSCOPY, BIOPSY N/A 12/29/2017 UPPER GASTROINTESTINAL ENDOSCOPY,WITH BIOPSY SINGLE OR MULTIPLE (WRVU 2.49) performed by Yusuf Tucker MD at [facility] ENDOSCOPY ??? PRO UPPER GI ENDOSCOPY, DIAGNOSTIC N/A 12/29/2017 EGD, UPPER GI ENDOSCOPY performed by Yusuf Tucker MD at [facility] ENDOSCOPY ??? TONSILLECTOMY Significant Family [...] B/L, no calf tenderness, swelling, or erythema. Neuro/CHILD STUDY TEAM DIRECTOR: AAO x 3, No gross motor deficits. No sensory loss. No gait ataxia. LABS: Recent Results (from the past 24 hour(s)) COVID-19 PCR Specimen: Nasopharyngeal Swab Symptoms->Surveillance Result Value Ref Range Rapid SARS-CoV-2 RNA Not Detected Not Detected SARS-CoV-2 Source [employer] Swab Basic Metabolic Panel (non-fasting) Result Value [...] sleep apnea, RICARDO who was transferred from [facility] due to recurrent and difficult to [...] past week with multiple presentations to the [facility]. He has had recurrence of atrial flutter [...] converted from AF --> SR in the compensation advisor hours. We discussed how amiodarone works and [...] care provider on file: Bin Bowman MD [phone] Advance Directive on file and Code Status: <no information>, Attempt Cardiopulmonary Resuscitation - Inpatient Patient???s Functional Status: Independent Living Situation: lives with Autumn at [address] [place] [address] Supports:Autumn Aguilar (Spouse) Assessment: Patient with no apparent RNCM/SW needs at this time. No housing, transportation, insurance, resources concerns identified at this time. Supports in place to achieve a safe post-hospital transition. No identified barriers to accessing necessary care and/or follow-up after discharge. Plan: Patient to d/c to home when medically ready. to transport when discharged direct mail coordinator/Health And Social Care Teacher will continue to follow patient???s progress and [...] AM EDT Office Visit Cardiology at [address] [place] [address] Mo Horne MD [facility] [place] [address] 09/21/2024 10:[address] [place] [place] [address] Rachel Carrasco MD [facility] [place] [address] 09/21/2024 11:00 AM EST [place] [phone] Rachel Carrasco MD [facility] [place] [address] documented as of this encounter Procedures Procedure [...] 2020 3:11 AM EST BASIC METABOLIC PANEL Routine 2020 3:11 AM EST EKG 12-LEAD Routine 2020 2:40 AM EST Coronary disease Flutter-fibrillati on RAPID COVID-19 PCR ([facility]/APD/[facility]) Routine 2020 2:15 AM EST documented in this encounter Results * Electrolytes panel (12/19/2020 5:02 AM EST) Sodium 138 135 - 145 mmol/L [facility] Potassium 4.2 3.5 - 5.0 mmol/L [facility] Comment: Please note: ??Patients with WBC >100,000 may have falsely elevated Potassium levels. ??For accurate Potassium quantification in these patients send serum separator tube (gold top) for subsequent determinations. ??Contact the Clinical Chemistry Laboratory if there are any questions. Chloride 104 98 - 107 mmol/L [facility] Carbon Dioxide 27 22 - 31 mmol/L [facility] Anion Gap 7 5 - 15 mmol/L [facility] Blood specimen (specimen) 12/19/2020 5:02 AM EST 12/19/2020 5:31 AM EST Narrative Resulting Agency Comment Spec In Lab Wes Nina MD CHEMISTRY ORDERABLES [facility] [place] [address] * Electrolytes panel (12/18/2020 4:03 AM EST) Pathologist [facility] Sodium 137 135 - 145 mmol/L [facility] Potassium 3.9 3.5 - 5.0 mmol/L [facility] Comment: Please note: ??Patients with WBC >100,000 may have falsely elevated Potassium levels. ??For accurate Potassium quantification in these patients send serum separator tube (gold top) for subsequent determinations. ??Contact the Clinical Chemistry Laboratory if there are any questions. Chloride 105 98 - 107 mmol/L [facility] Carbon Dioxide 25 22 - 31 mmol/L [facility] Anion Gap 7 5 - 15 mmol/L [facility] Blood specimen (specimen) 12/18/2020 4:03 AM EST 12/18/2020 4:24 AM EST Narrative Resulting Agency Comment Spec In Lab Wes Nina MD CHEMISTRY ORDERABLES [facility] [place] [address] * Differential, Automated (2020 3:11 AM EST) Pathologist [facility] Neutrophil % 63.7 % [facility] Neutrophil Absolute 5.57 1.70 - 6.10 x10(3)/[facility] Lymph % 26.8 % [facility] Lymphocytes Abs 2.4 0.9 - 3.2 x10(3)/[facility] Monocyte % 6.8 % [facility] Monocyte Abs 0.6 0.3 - 0.9 x10(3)/[facility] Eos % 1.9 % [facility] Eosinophils Abs 0.2 0.0 - 0.4 x10(3)/[facility] Basophil % 0.6 % [facility] Baso Absolute 0.0 0.0 - 0.1 x10(3)/[facility] Immature Gran % 0.20 % [facility] Comment: Immature granulocytes(IG's)percentage and absolute count will include metamyelocytes, myelocytes, and promyelocytes. Blood smears from CBCs yielding IG's will be scanned manually for concordance. If this scan disagrees with the automated IG or if promyelocytes are noted, a manual differential will be performed. Immature Gran Absolute 0.02 0.00 - 0.04 x10(3)/[facility] Blood specimen (specimen) 2020 3:11 AM EST 2020 3:23 AM EST Narrative Resulting Agency Comment Spec In Lab Wes Nina MD HEMATOLOGY ORDERABLE S Performing Organization Address City/State/[facility] Co de Phone Number [facility] [place] [address] * Hemogram (2020 3:11 AM EST) White Blood Cell 8.8 4.0 - 9.5 x10(3)/[facility] Red Blood Cell 5.21 4.58 - 5.54 x10(6)/[facility] Hemoglobin 14.4 13.7 - 16.5 gm/dL [facility] Hematocrit 43.6 40.5 - 48.5 % [facility] Mean Cell Volume 83.7 82.9 - 93.1 fL [facility] Mean Cell Hemoglobin 27.6 27.5 - 32.1 pg [facility] Mean Cell Hemoglobin Concentration 33.0 32.0 - 35.7 gm/dL [facility] Platelet 172 145 - 357 x10(3)/[facility] RDW Standard Deviation 41.3 36.0 - 45.0 fL [facility] RDW coefficient of variation 13.6 11.4 - 13.8 % [facility] Mean Platelet Volume 9.7 7.6 - 12.9 fL [facility] NRBC% auto 0.0 % [facility] NRBC Absolute 0.000 0.000 - 0.000 x10(3)/mcL [facility] Blood specimen (specimen) 2020 3:11 AM EST 2020 3:23 AM EST Narrative Resulting Agency Comment Spec In Lab Wes Nina MD HEMATOLOGY ORDERABLE S [facility] [place] [address] * Hemoglobin A1c (2020 3:11 AM EST) Hemoglobin A1c 5.2 4.3 - 5.6 % [facility] Comment: Reference Range: 4.3 - [...] Diabetes Care 2013; 36: Suppl. 1, S67-74 Estimated Average Glucose 104 mg/dL [facility] Comment: eAG equivalents for HbA1c [...] into estimated average glucose values. ??Diabetes Care 2008:31(8):2603-9167. Blood specimen (specimen) 2020 3:11 AM EST 2020 3:23 AM EST Narrative Resulting Agency Comment Spec In Lab Wes Nina MD CHEMISTRY ORDERABLES [facility] [place] [address] * Lipid Panel (Reflex Direct LDL) (2020 3:11 AM EST) Cholesterol, Total 89 mg/dL [facility] Comment: Lower Risk: <200 mg/dL Average Risk: 200-239 mg/dL Higher Risk: >lo=443 mg/dL Triglyceride 75 mg/dL [facility] Comment: Average Risk/Lower Risk: <150 mg/dL Borderline High Risk: 150-199 mg/dL High Risk: 200-499 mg/dL Very High Risk: >mx=062 mg/dL HDL Cholesterol 35 mg/dL [facility] Comment: Males: ?? Higher Risk: <40 mg/dL Females: ?? HIgher Risk: <50 mg/dL LDL Cholesterol 39 mg/dL [facility] Comment: Lowest Risk: <100 mg/dL Lower Risk: 100-129 mg/dL Borderline High Risk: 130-159 mg/dL High Risk: 160-189 mg/dL Very High Risk: >gm=562 mg/dL Cholesterol/HDL Ratio 2.5 ratio [facility] Lipid Interpretation See Note [facility] Comment: Lipid management should be guided by a patient? s ASCVD risk, goals and preferences. ACC/AHA Guidelines recommend high intensity statin if clinical ASCVD or LDL greater than or equal to 190 mg/dL. http://Prime Connections.com/OUX-GHH-Mohvkvadh Adults aged 40-75 with LDL 70-189 mg/dL should have their 10 year ASCVD risk estimated with the ACC/AHA ASCVD risk drapery estimator http://tools.acc.org/WHBVT-Owyw-Awhrtyznx/ Statin should be discussed if risk greater [...] Nina MD CHEMISTRY ORDERABLES Performing Organization Address [facility] Co de Phone Number [facility] [place] [address] * APTT (2020 3:11 AM EST) Partial Thromboplastin Time 36 25 - 37 sec [facility] Comment: The PTT is NOT appropriate for heparin monitoring. Use the Anti-Xa level for heparin monitoring (HEP UFH) or LMWH monitoring (HEP LMW). A PTT less than 37 seconds generally indicates adequate hemostasis. Blood specimen (specimen) 2020 3:11 AM EST 2020 3:23 AM EST Narrative Resulting Agency Comment Spec In Lab Wes Nina MD HEMATOLOGY ORDERABLE S Performing Organization Address City/[facility] Co de Phone Number [facility] [place] [address] * (ABNORMAL) Prothrombin Time (2020 3:11 AM EST) Prothrombin Time 16.7(H) 9.4 - 12.5 sec [facility] International Normalization Ratio 1.5 [facility] Comment: An INR <2.0 indicates [...] HEMATOLOGY ORDERABLE S Performing Organization Address [facility] Co de Phone Number [facility] [place] [address] * Hepatic Function Panel (2020 3:11 AM EST) [facility] Protein, Total 6.9 6.1 - 8.0 gm/dL [facility] Albumin 3.7 3.2 - 5.2 gm/dL [facility] Aspartate Aminotransferase 18 0 - 39 unit/L [facility] Alanine Aminotransferase 29 0 - 55 unit/L [facility] Alkaline Phosphatase 66 40 - 130 unit/L [facility] Bilirubin, Total 0.5 0.2 - 1.3 mg/dL [facility] Bilirubin, Direct 0.2 0.0 - 0.3 mg/dL [facility] Blood specimen (specimen) 2020 3:11 AM EST 2020 3:23 AM EST Narrative Resulting Agency Comment Spec In Lab Wes Nina MD CHEMISTRY ORDERABLES Performing Organization Address [facility] Phone Number [facility] [place] [address] * (ABNORMAL) pro-Brain Natriuretic Peptide (2020 3:11 AM EST) NT-proBNP 654(H) <=125 pg/mL [facility] Blood specimen (specimen) 2020 3:11 AM EST 2020 3:23 AM EST Narrative Resulting Agency Comment Spec In Lab Wes Nina MD CHEMISTRY ORDERABLES Performing Organization Address [facility] Co de Phone Number [facility] [place] [address] * TSH (2020 3:11 AM EST) Thyroid Stimulating Hormone 2.75 0.27 - 4.20 mcIU/mL [facility] Blood specimen (specimen) 2020 3:11 AM EST 2020 3:23 AM EST Narrative Resulting Agency Comment Spec In Lab Wes Nina MD CHEMISTRY ORDERABLES Performing Organization Address [facility] Co de Phone Number [facility] [place] [address] * Phosphorus (2020 3:11 AM EST) Phosphorus 3.0 2.5 - 4.5 mg/dL [facility] Blood specimen (specimen) 2020 3:11 AM EST 2020 3:23 AM EST Narrative Resulting Agency Comment Spec In Lab Wes Nina MD CHEMISTRY ORDERABLES Performing Organization Address [facility] Co de Phone Number [facility] [place] [address] * Magnesium (2020 3:11 AM EST) Magnesium 0.84 0.69 - 1.07 mmol/L [facility] Blood specimen (specimen) 2020 3:11 AM EST 2020 3:23 AM EST Narrative Resulting Agency Comment Spec In Lab Wes Nina MD CHEMISTRY ORDERABLES [facility] [place] [address] * (ABNORMAL) Basic Metabolic Panel (non-fasting) (2020 3:11 AM EST) Glucose 110 65 - 199 mg/dL [facility] Comment:Diabetes: >=200 mg/d L plus symptoms Blood Urea Nitrogen 9(L) 10 - 20 mg/dL [facility] Creatinine 0.92 0.80 - 1.50 mg/dL [facility] Sodium 141 135 - 145 mmol/L [facility] Potassium 3.6 3.5 - 5.0 mmol/L [facility] Comment: Please note: ??Patients with WBC >100,000 may have falsely elevated Potassium levels. ??For accurate Potassium quantification in these patients send serum separator tube (gold top) for subsequent determinations. ??Contact the Clinical Chemistry Laboratory if there are any questions. Chloride 106 98 - 107 mmol/L [facility] Carbon Dioxide 25 22 - 31 mmol/L [facility] Anion Gap 10 5 - 15 mmol/L [facility] Calcium 9.1 8.5 - 10.5 mg/dL [facility] Est Glomerular Filtration Rate 96 >=60 mL/min/1. 73 m?? [facility] Comment: This patient? s estimated [...] Nina MD CHEMISTRY ORDERABLES Performing Organization Address City/[facility]/ZIP Co de Phone Number [facility] [place] [address] * EKG 12 Lead (2020 2:40 AM EST) [facility] Ventricular rate 100 BPM MUSE SYSTEM Atrial Rate 286 BPM MUSE SYSTEM QRS Duration 96 ms MUSE SYSTEM Q-T Interval 350 ms MUSE SYSTEM QTC Calculated (Bezet) 451 ms MUSE SYSTEM Calculated R [place] 35 degrees MUSE SYSTEM Calculated T [place] 32 degrees MUSE SYSTEM INTERPRETATION Atrial fibrillation with rapid ventricular response Abnormal ECG When compared with ECG of 06-SEP-2020 14:03, Atrial fibrillation has replaced Sinus rhythm Confirmed by MD Nidhi, Breonna Lynn ([id number]) on 2020 12:49:35 PM MUSE SYSTEM 2020 2:40 AM EST 2020 12:49 PM EST Wes Nina MD ECG ORDERABLES Performing Organization Address City/[facility] Co de Phone Number MUSE SYSTEM * COVID-19 PCR (2020 2:15 AM EST) [facility] SARS-CoV-2 RNA (Rapid) Not Detected Not Detected [facility] Comment: This result should be [...] using the Simplexa COVID-19 Direct Assay by [facility] as authorized by the FDA issued Emergency [...] Department of Pathology and Laboratory Medicine at [facility], certified under the Clinical Laboratory Improvement [...] fact sheets at the following FDA website: https://www.fda.gov/medical-devices/fvzqrsavwgw-qpsieeg-9572-yjvrg-55-yqsnavczw- use-a rpgaspsjrkfmm-gvwyrgv-yykdvwk/yqrcv-hmgzsldftcg-obgv SARS-CoV-2 Source [employer] Swab [facility] Nasopharyngeal swab (specimen) 2020 2:15 AM EST 2020 3:28 AM EST Comment:Symptoms->Surveillan ce Narrative Resulting Agency Comment Spec In Lab eWs Nina MD MICROBIOLOGY - GENER AL ORDERABLES [facility] [place] [address] documented in this encounter Visit Diagnoses Diagnosis [...] 81 mg, Oral, DAILY, First dose on Fri12/17/20 at 0900, Until Discontinued, Routine Given 12/19/2020 [...] Oral, ONCE PRN, 1 dose, Starting on 12/18/20 at 2032, Until Fri12/18/20 at 2237, Anxiety, [...] on 12/17/20 at 2300, Until Discontinued, Routine 2258 (Given - Provider: Maggie Wolf RN) 0832 [...] response: Approved indication of non-valvular atrial fibrillation 0821 (Given - Provider: Fernandez Richardson RN)2035 (Given - Provider: Maggie Wolf RN) 0832 [...] 0745, Routine 0821 (Given - Provider: Fernandez Richardson, FLAVIA) sodium chloride 0.9 % (flush) flush [...] RN) 0839 (Given - Provider: Mavis Gamboa RN)2099 (Not Given - Provider: Maggie Wolf RN - Reason: Loss of access) 0835 (Given - Provider: Mavis Gamboa RN) Continuous Medication Order 2020 12/18/2020 12/19/2020 AMIOdarone (Cordarone) (1.8 mg/mL) in dextrose 5% 200 mL infusion (CANCELED) 0.5-1 mg/min (16.6667-33.3333 mL/hr, rounded to 16.7-33.3 mL/hr), Intravenous, CONTINUOUS, Starting on 12/17/20 at 0300, Until 12/18/20 at 1437, Slow Load. Initiate loading infusion [...] Fernandez Richardson RN)2307 (Stopped - Provider: Maggie Wolf, RN) PRN Medication Order 2020 12/18/2020 12/19/2020 [...] on Fri12/18/20 at 2032, Until Fri12/18/20 at 223, Anxiety, DO NOT SPLIT, CRUSH OR OPEN, Routine 2236 (Given - Provider: Maggie Wolf, FLAVIA) lidocaine [...] Intravenous, EVERY 1 MIN PRN, Starting on Fri12/17/20 at 0213, Until Fri12/19/20 at 1547, flush, Flush pertains to all indwelling lines. Flush per protocol found in the job aid using the link provided on this medication record., Routine sodium chloride 0.9 % (flush) flush 5-20 mL 5-20 mL, Intravenous, EVERY 1 MIN PRN, Starting on 12/17/20 at 0213, Until 12/19/20 at 1547, flush, Flush pertains to all indwelling lines. Flush per protocol found in the job aid using the link provided on this medication record., Routine documented in this encounter Care Teams Upstairs Maid Relationship Specialty Start Date End Date Bin Bowman MD [address] [place] [id number] PCP - General General Internal Medicine 04/21/1707/11 documented as of this encounter
--- OUTSIDE RECORDS SUMMARY | 2024-06-17 22:22 | XMS_ITS | Encounter Summary ---
Author Organization [facility] [place] [address] Care Team Providers Care Mess Attendant Name Role Phone Bin Bowman MD Primary Care Provider Encounter Details Date Type Department Care Team (Late st Contact Info) Description 12/06/2020 Telephone Cardiology at [address] [phone] Jami Gurrola Social History Tobacco Use Types [...] AM EDT Office Visit Cardiology at [address] [place] [address] Mo Horne MD [facility] [place] [address] 09/21/2024 10:[address] [place] [phone] Rachel Carrasco MD [facility] [place] [address] 09/21/2024 11:00 AM EST Office [place] [phone] Rachel Carrasco MD [facility] [place] [address] documented as of this encounter Visit Diagnoses Not on filedocumented in this encounter Care Teams Mess Attendant Relationship Specialty Start Date End Date Bin Bowman MD [address] [place] [id number] PCP - General General Internal Medicine 04/21/1707/11 documented as of this encounter
--- OUTSIDE RECORDS SUMMARY | 2024-06-17 22:22 | XMS_ITS | Encounter Summary ---
Author Organization [facility] Address [facility] [place] [address] Care Team Providers Care Software Tools Build Engineer Name Role Phone Bin Bowman MD Primary Care Provider [phone] Encounter Details Date Type Department Care Team (Late st Contact Info) Description 12/06/2020 Orders Only Cardiology at [address] [address] Fadi Escobar MD [facility] [place] [address] SVT (supraventricular tachycardia) Social History Tobacco Use [...] AM EDT Office Visit Cardiology at [address] [address] Mo Horne MD [facility] [place] [address] 09/21/2024 10:[address] [place] [place] [address] Rachel Carrasco MD [facility] [place] [address] 09/21/2024 11:00 AM EST [place] [address] Rachel Carrasco MD [facility] [place] [address] Scheduled Orders Name Type Priority Associated Diagnoses Orde r Schedule Basic Metabolic Panel (non-fasting) Lab Routine SVT (supraventricular tachycardia) Expected: 01/16/2021 (Approximate), Expires: 12/06/2021 documented as of this encounter Visit Diagnoses Diagnosis SVT (supraventricular tachycardia) Other specified cardiac dysrhythmias documented in this encounter Care Teams Software Tools Build Engineer Relationship Specialty Start Date End Date Bin Bowman MD [address] [place] [address] PCP - General General Internal Medicine 04/21/1707/11 documented as of this encounter
--- OUTSIDE RECORDS SUMMARY | 2024-06-17 22:22 | XMS_ITS | Encounter Summary ---
Author Organization [facility] Address [facility] [address] Care Team Providers Care Produce Weigher Name Role Phone Bin Bowman MD Primary Care Provider [phone] Encounter Details Date Type Department Care Team (Late st Contact Info) Description 12/15/2020 [place] [address] Joss Painter MD [facility] [place] [address] Social History Tobacco Use Types Packs/Day Years [...] above) ??3)?Coronary artery disease >?July 2017 at [facility]: Non-STEMI (EMMY of OM1) [...] daily. He is symptomatic with palpitations. VS: [id number] ?? All covid questions: negative?? Tested yesterday [...] AM EDT Office Visit Cardiology at [address] [phone] Mo Horne MD [facility] [place] [address] 09/21/2024 10:[address] [place] [place] [address] Rachel Carrasco MD [facility] [place] [address] 09/21/2024 11:00 AM EST [place] [address] Rachel Carrasco MD [facility] [place] [address] documented as of this encounter Visit Diagnoses Not on filedocumented in this encounter Care Teams Produce Weigher Relationship Specialty Start Date End Date Bin Bowman MD [address] [place] [address] PCP - General General Internal Medicine 04/21/1707/11 documented as of this encounter
--- OUTSIDE RECORDS SUMMARY | 2024-06-17 22:22 | XMS_ITS | Encounter Summary ---
Author Organization [facility] [place] [address] Care Team Providers Care Personal Care Aide Name Role Phone Bin Bowman MD Primary Care Provider [phone] Encounter Details Date Type Department Care Team (Late st Contact Info) Description 08/01/2020 Telephone Cardiology at [address] [phone] Fady Lord RN Social History Tobacco Use [...] pay $395. This information was confirmed with [facility]. Pt will be in clinictomorrow for Zio patch placement. documented in this encounter Plan of Treatment Upcoming Encounters Date Type Department Care Team (Late st Contact Info) Description 06/23/2024 10:00 AM EDT Office Visit Cardiology at [address] [place] [address] Mo Horne MD [facility] [place] [address] 09/21/2024 10:[address] [place] [phone] Rachel Carrasco MD [facility] [place] [address] 09/21/2024 11:00 AM EST Office [place] [address] Rachel Carrasco MD [facility] [place] [address] documented as of this encounter Visit Diagnoses Not on filedocumented in this encounter Care Teams Personal Care Aide Relationship Specialty Start Date End Date Bin Bowman MD [address] [place] [address] PCP - General General Internal Medicine 04/21/1707/11 documented as of this encounter
--- OUTSIDE RECORDS SUMMARY | 2024-06-17 22:22 | XMS_ITS | Encounter Summary ---
Author Organization [facility] Address [facility] [place] [address] Care Team Providers Care Gettering Filament Machine Operator Name Role Phone Bin Bowman MD Primary Care Provider Encounter Details Date Type Department Care Team (Late st Contact Info) Description 12/14/2020 Telephone Cardiology at [address] [address] Obdulio Dominique MD [facility] [place] [address] Social History Tobacco Use Types Packs/Day Years [...] AM EDT Office Visit Cardiology at [address] [address] Mo Horne MD [facility] [place] [address] 09/21/2024 10:[address] [place] [place] [address] Rachel Carrasco MD [facility] [address] 09/21/2024 11:00 AM EST [place] [address] Rachel Carrasco MD [facility] [place] [address] documented as of this encounter Visit Diagnoses Not on filedocumented in this encounter Care Teams Gettering Filament Machine Operator Relationship Specialty Start Date End Date Bin Bowman MD [address] [place] [address] PCP - General General Internal Medicine 04/21/1707/11 documented as of this encounter
--- OUTSIDE RECORDS SUMMARY | 2024-06-17 22:22 | XMS_ITS | Encounter Summary ---
Author Organization [facility] Address [facility] [place] [address] Care Team Providers Care Quantometer Operator Name Role Phone Bin Bowman MD Primary Care Provider [phone] Reason for Visit * Auth/Cert Specialty Diagnoses / Procedures Referred By Zeyad mishra Referred To Contact Diagnoses SVT (supraventricular tachycardia) [I47.1], PAF (paroxysmal atrial fibrillation) [I48.0] Procedures ELECTROPHYSIOLOGY PROCEDURE TRANSESOPHAGEAL ECHO DURING CATH/EP PROCEDURE Referral ID Status Reason Start Date Expiration Date Visits Re quested Visits Authorized [id number] 1 1 Encounter Details Date Type Department Care Team (Late st Contact Info) Description 01/10/2021 11:10 AM EST Anesthesia Event [place]rophys[place] [address] Zena Calero MD [facility] [place] [address] Anesthesia Record Procedure Summary Procedure Name Responsible [...] for questions and acknowledgement of understanding VAZQUEZ DENNISON CRNA 1334 Break/Relief Out 1606 Handoff Intra-procedure [...] cephalic vein (lateral side of arm), right; mllg-nnr-eunfse catheter system; 20 gauge, 1 in length; [...] 1134; metacarpal vein (top of hand), left; uera-uhi-etomqi catheter system; 16 gauge; 0; removed per patient; 01/11/21; 1223 01/10/21 1134 by Palomo Brown CRNA 01/11/21 1223 by Miriam Chong RN Arterial Line 01/10/21; 1143; radi al artery; 20 gauge; Kevin; Sterile Prep, Sterile Gloves; catheter not patent; 01/11/21; 2330 01/10/21 1143 by Palomo Brown BURLAP BAG SEWER 01/11/21 2330 by Twyla William RN Urethral [...] LNA LDA Cath/EP Sheath 01/10/21; 1320; 8.5 [place] Zealander (Fr); Right; Femoral 01/10/21 1320 by Breonna Alcaraz RN 01/10/21 1846 by Breonna Alcaraz RN LDA Cath/EP Sheath 01/10/21; 1325; 8.5 [place] (Fr); Right; Femoral 01/10/21 1325 by Breonna Alcaraz RN 01/10/21 1846 by Breonna Alcaraz RN LDA Cath/EP Sheath 01/10/21; 1333; [...] Procedure Summary Date: 01/10/21 Room / Location: [facility] B-LAB ROOM 4 / [facility] EP LABS Anesthesia Start: 1109 Anesthesia Stop: [...] Anesthesiologist: Boom Pace MD; Zena Calero MD BURLAP BAG SEWER: Jesse Garcia CRNA; Palomo Brown CRNA Vitals Value Taken Time BP 110/67 01/10/211999 Temp 36.3 ??C (97.3 ??F) 01/10/21 1945 Pulse 97 01/10/212009 Resp 19 01/10/212009 SpO2 97 % 01/10/212009 Pain Level 0 01/10/21 1915 Vitals shown include unvalidated device data. Patient Location: PACU/[facility] Level of Consciousness: Awake and Alert [...] tachycardia) Added automatically from request for surgery [id number] ??? Bipolar disorder ??? PAF (paroxysmal atrial fibrillation) Added automatically from request for surgery [id number] ??? Flutter-fibrillation ??? H/O cardiac radiofrequency ablation ??? Coronary disease ?? 2017: STEMI. PCI of OM1. EF 60%. Many ER visits to [facility] after this. ??? Heart palpitations [...] 11.47) performed by Colt Hewitt MD [facility] MAIN OR ??? PRO UNLISTED LAPAROSCOPIC PX LVR N/A 07/21/2018 LAPAROSCOPIC LIVER BIOPSY (WRVU 16.52) performed by Colt Hewitt MD at [facility] MAIN OR ??? PRO UPPER GI ENDOSCOPY, BIOPSY N/A 12/29/2017 UPPER GASTROINTESTINAL ENDOSCOPY,WITH BIOPSY SINGLE OR MULTIPLE (WRVU 2.49) performed by Yusuf Tucker MD at [facility] ENDOSCOPY ??? PRO UPPER GI ENDOSCOPY, DIAGNOSTIC N/A 12/29/2017 EGD, UPPER GI ENDOSCOPY performed by Yusuf Tucker MD at [facility] ENDOSCOPY ??? TONSILLECTOMY Social History [...] consented to blood products. Plan discussed with BURLAP BAG SEWER. PAT Clinic Note documented in this encounter Plan of Treatment Upcoming Encounters Date Type Department Care Team (Late st Contact Info) Description 06/23/2024 10:00 AM EDT Office Visit Cardiology at [address] [place] [address] Mo Horne MD [facility] [place] [address] 09/21/2024 10:[address] [place] [address] Rachel Carrasco MD [facility] [place] [address] 09/21/2024 11:00 AM EST Office [place] [address] Rachel Carrasco MD [facility] [place] [address] documented as of this encounter Visit Diagnoses Not on filedocumented in this encounter Administered Medications Inactive Administered Medications - up to 3 most recent administrations Medication Order MAR Action Action Date Dose Rate Site ceFAZolin (Ancef) 1 g in dextrose 5% 50 mL infusion Intravenous, PRN, Starting on Fri01/10/21 at 1420, Until Fri01/10/21 at 1928, Administer over 30 Minutes, Anesthesia Intra-op Given 01/10/2021 6:20 PM EST 3 g Given 01/10/2021 2:20 PM EST 3 g dexamethasone (Decadron) injection Intravenous, PRN, Starting on Fri01/10/21 at 1711, Until Fri01/10/21 at 192, Anesthesia Intra-op, Routine Given 01/10/2021 5:11 PM [...] on Fri01/10/21 at 1350, Until Fri01/10/21 at 192, Anesthesia Intra-op, Routine Given 01/10/2021 1:50 PM EST 5 mg fentaNYL (pf) (50 mcg/mL) multi-dose injection Intravenous, PRN, Starting on Fri01/10/21 at 1120, Until Fri01/10/21 at 192, Anesthesia Intra-op, Routine Given 01/10/2021 11:20 AM EST 100 mcg heparin (porcine) (1,000 units/mL) injection Intravenous, PRN, Starting on Fri01/10/21 at 1514, Until Fri01/10/21 at 192, Anesthesia Intra-op, Routine Given 01/10/2021 5:36 PM [...] on Fri01/10/21 at 1131, Until Fri01/10/21 at 192, Anesthesia Intra-op New Bag 01/10/2021 11:31 AM EST lactated ringers infusion Intravenous, CONTINUOUS PRN, Starting on Fri01/10/21 at 1054, Until Fri01/10/21 at 192, Anesthesia Intra-op New Bag 01/10/2021 10:54 AM [...] on Fri01/10/21 at 1121, Until Fri01/10/21 at 1928, Anesthesia Intra-op Given 01/10/2021 11:21 AM EST [...] mg documented in this encounter Care Teams Quantometer Operator Relationship Specialty Start Date End Date Bin Bowman MD [address] [address] PCP - General General Internal Medicine 04/21/1707/11 documented as of this encounter
--- OUTSIDE RECORDS SUMMARY | 2024-06-17 22:22 | XMS_ITS | Encounter Summary ---
Author Organization [facility] [place] [address] Care Team Providers Care Parts Processor Name Role Phone Bin Bowman MD Primary Care Provider [phone] Encounter Details Date Type Department Care Team (Late st Contact Info) Description 12/21/2020 [place] [phone] Cynthia Wild Social History Tobacco Use Types [...] patient. Ordering provider: Dr. Escobar Testing Facility: [facility] Date of Testin/6 Time of Testing: TBD Symptoms: No Is this the first test for Covid 19 No, Dec, Neg, [facility] If no, please list date of previous test, result, and type of test (Molecular, Antigen, Antibody orunknown): Resides in congregate care setting No Employee or Household Member of Employee No Healthcare Worker No documented in this encounter Plan of Treatment Upcoming Encounters Date Type Department Care Team (Late st Contact Info) Description 06/23/2024 10:00 AM EDT Office Visit Cardiology at [address] [place] [address] Mo Horne MD [facility] [place] [address] 09/21/2024 10:[address] [place] [place] [address] Rachel Carrasco MD [facility] [place] [address] 09/21/2024 11:00 AM EST Office [place] [address] Rachel Carrasco MD [facility] [place] [address] documented as of this encounter Visit Diagnoses Diagnosis COVID-19 ruled out documented in this encounter Care Teams Parts Processor Relationship Specialty Start Date End Date Bin Bowman MD [address] [place] [address] PCP - General General Internal Medicine 04/21/1707/11 documented as of this encounter
--- OUTSIDE RECORDS SUMMARY | 2024-06-17 22:22 | XMS_ITS | Encounter Summary ---
Author Organization [facility] Address [facility] [place] [address] Care Team Providers Care Sorter Laundry Articles Name Role Phone Bin Bowman MD Primary Care Provider [phone] Encounter Details Date Type Department Care Team (Late st Contact Info) Description 12/16/2020 External [place] [phone] Social History Tobacco Use Types Packs/Day Years [...] AM EDT Office Visit Cardiology at [address] [place] [address] Mo Horne MD [facility] [place] [address] 09/21/2024 10:[address] [place] [place] [phone] Rachel Carrasco MD [facility] [place] [address] 09/21/2024 11:00 AM EST Office Visit Urology at [facility] [place] [phone] Rachel Carrasco MD [facility] [place] [place] [address] documented as of this encounter Procedures Procedure Name Priority Date/Time Associated Diagnosis Comments ECG SCAN Routine 12/16/2020 documented in this encounter Results * Scan Doc: ECG (12/16/2020) Historical Provider MD [facility] MGR SCAN EX T ORDR/RSLT documented in this encounter Visit Diagnoses Not on filedocumented in this encounter Care Teams Sorter Laundry Articles Relationship Specialty Start Date End Date Bin Bowman MD [address] [place] [address] PCP - General General Internal Medicine 04/21/1707/11 documented as of this encounter
--- OUTSIDE RECORDS SUMMARY | 2024-06-17 22:22 | XMS_ITS | Encounter Summary ---
Author Organization [facility] [place] [address] Care Team Providers Care Sheetmetal Trades Worker Name Role Phone Bin Bowman MD Primary Care Provider Reason for Visit * Reason Comments Medication Refill Encounter Details Date Type Department Care Team (Late st Contact Info) Description 10/19/2020 Refill Cardiology at [address] [address] Jeremie Patton MD [facility] [place] [address] Medication Refill Social History Tobacco Use Types [...] AM EDT Office Visit Cardiology at [address] [address] Mo Horne MD [facility] [place] [address] 09/21/2024 10:[address] [place] [address] Rachel Carrasco MD [facility] [place] [address] 09/21/2024 11:00 AM EST Office [place] [address] Rachel Carrasco MD [facility] [address] [place] [address] documented as of this encounter Visit Diagnoses Diagnosis Coronary disease Essential hypertension Unspecified essential hypertension Heart palpitations Palpitations documented in this encounter Care Teams Sheetmetal Trades Worker Relationship Specialty Start Date End Date Bin Bowman MD [address] [place] [address] PCP - General General Internal Medicine 04/21/1707/11 documented as of this encounter
--- OUTSIDE RECORDS SUMMARY | 2024-06-17 22:22 | XMS_ITS | Encounter Summary ---
Author Organization [facility] [place] [address] Care Team Providers Care Bordereau Clerk Name Role Phone Bin Bowman MD Primary Care Provider Reason for Referral * Diagnostic Test (Routine) - Closed Specialty Diagnoses / Procedures Referred By Contac t Referred To Contact Cardiology Diagnoses H/O cardiac radiofrequency ablation Procedures Mary Contreras PA [facility] [place] [address] [facility] [place] [address] Referral ID Status Reason Start Date Expiration Date V isits Requested Visits Authorized [id number] Closed Specialty Service Requested 08/01/2020 08/26/2020 1 1 Reason for Visit * Diagnostic Test (Routine) - Closed Specialty Diagnoses / Procedures Referred By Contac t Referred To Contact Cardiology Diagnoses H/O cardiac radiofrequency ablation Procedures Mary Contreras PA [facility] [place] [address] [facility] [place] [address] Referral ID Status Reason Start Date Expiration Date V isits Requested Visits Authorized [id number] Closed Specialty Service Requested 08/01/2020 08/26/2020 1 1 Encounter Details Date Type Department Care Team (Latest Contact Info) Description 08/02/2020 12:52 PM EDT - 08/02/2020 11:59 PM EDT Hospital Encounter Non-Invasive Cardiology Lab [facility] [place] [address] Fadi Escobar MD [facility] [place] [address] H/O cardiac radiofrequency ablation Discharge Disposition: Home [...] Sustained Release 24 hrIndications:Coronary artery disease involving [place] coronary artery of [place] heart without angina pectoris,Essential hypertension,Heart palpitations Take 1 tablet by mouth 2 times daily. Take with 25mg tab to equal 125mg BID 90 tablet 1 07/11/2020 11/07/2020 metoprolol succinate XL (Toprol-XL) 25 mg Tablet Sustained Release 24 hrIndications:Coronary artery disease involving [place] coronary artery of [place] heart without angina pectoris,Essential hypertension,Heart palpitations Take [...] AM EDT Office Visit Cardiology at [address] [phone] Mo Horne MD [facility] [place] [address] 09/21/2024 10:[address] [place] [place] [address] Rachel Carrasco MD [facility] [place] [address] 09/21/2024 11:00 AM EST [place] [address] Rachel Carrasco MD [facility] [place] [address] documented as of this encounter Procedures Procedure [...] detected. ____ Interpreted by Fadi Escobar MD, [facility] Fadi Escobar MD CARDIAC SERVICES ORD ERABLES documented in this encounter Visit Diagnoses Diagnosis H/O cardiac radiofrequency ablation documented in this encounter Care Teams Bordereau Clerk Relationship Specialty Start Date End Date Bin Bowman MD [address] [place] [address] PCP - General General Internal Medicine 04/21/1707/11 documented as of this encounter
--- OUTSIDE RECORDS SUMMARY | 2024-06-17 22:23 | XMS_ITS | Encounter Summary ---
Author Organization [facility] [place] [address] Care Team Providers Care Planting Material Remover Name Role Phone Bin Bowman MD Primary Care Provider [phone] Encounter Details Date Type Department Care Team (Late st Contact Info) Description 06/27/2018 External Results [address] [place] [address] Social History Tobacco Use Types [...] AM EDT Office Visit Cardiology at [address] [place] [address] Mo Horne MD [facility] [place] [address] 09/21/2024 10:[address] [place] [place] [address] Rachel Carrasco MD [facility] [place] [address] 09/21/2024 11:00 AM EST Office Visit Urology at [facility] [place] [address] Rachel Carrasco MD [facility] [place] [address] documented as of this encounter Procedures Procedure Name Priority Date/Time Associated Diagnosis Comments ECG SCAN Routine 06/27/2018 documented in this encounter Results * Scan Doc: ECG (06/27/2018) Historical Provider MEDIA MGR SCAN EX T ORDR/RSLT documented in this encounter Visit Diagnoses Not on filedocumented in this encounter Care Teams Planting Material Remover Relationship Specialty Start Date End Date Bin Bowman MD [address] [place] [address] PCP - General General Internal Medicine 04/21/1707/11 documented as of this encounter
--- OUTSIDE RECORDS SUMMARY | 2024-06-17 22:23 | XMS_ITS | Encounter Summary ---
Author Organization [facility] Address [facility] [place] [address] Care Team Providers Care Warehouse Analyst Name Role Phone Bin Bowman MD Primary Care Provider [phone] Reason for Visit * Reason Comments Follow-up Encounter Details Date Type Department Care Team (Late st Contact Info) Description 08/19/2018 11:40 AM EDT Office [place] [address] Colt Hewitt MD [facility] [place] [address] Postoperative visit Social History Tobacco Use Types [...] AM EDT Office Visit Cardiology at [address] [address] Mo Horne MD [facility] [address] 09/21/2024 10:[address] [place] [place] [address] Rachel Carrasco MD [facility] [place] [address] 09/21/2024 11:00 AM EST Office [place] [phone] Rachel Carrasco MD [facility] [place] [address] documented as of this encounter Visit Diagnoses Diagnosis Postoperative visit documented in this encounter Care Teams Warehouse Analyst Relationship Specialty Start Date End Date Bin Bowman MD [address] [address] PCP - General General Internal Medicine 04/21/1707/11 documented as of this encounter
--- OUTSIDE RECORDS SUMMARY | 2024-06-17 22:23 | XMS_ITS | Encounter Summary ---
[place] [address] Care Team Providers Care Production Cell Leader Name Role Phone Bin Bowman MD Primary Care Provider [phone] Encounter Details Date Type Department Care Team (Late Contact Info) Description 07/04/2020 [place] [phone] Jil Reis Social History Tobacco Use Types [...] test. Would like an order sent to [facility] and she willcall to get this scheduled. Gave her number to call. documented in this encounter Plan of Treatment Upcoming Encounters Date Type Department Care Team (Late st Contact Info) Description 06/23/2024 10:00 AM EDT Office Visit Cardiology at [address] [place] [address] Mo Horne MD [facility] [place] [address] 09/21/2024 10:[address] [place] [place] [address] Rachel Carrasco MD [facility] [place] [address] 09/21/2024 11:00 AM EST [place] [phone] Rachel Carrasco MD [facility] [place] [address] documented as of this encounter Visit Diagnoses Not on filedocumented in this encounter Care Teams Production Cell Leader Relationship Specialty Start Date End Date Bin Bowman MD [address] [place] [address] PCP - General General Internal Medicine 04/21/1707/11 documented as of this encounter
--- OUTSIDE RECORDS SUMMARY | 2024-06-17 22:23 | XMS_ITS | Encounter Summary ---
Author Organization [facility] [place] [address] Care Team Providers Care Risk Officer Name Role Phone Bin Bowman MD Primary Care Provider [phone] Reason for Visit * Reason Onset Date Comments Questions 06/13/2020 Encounter Details Date Type Department Care Team (Late st Contact Info) Description 06/13/2020 Telephone Cardiology at [address] [phone] Fady Lord RN Questions Social History Tobacco [...] EDT Received a call from Esmer from [facility] Cardiology re: plan for this [...] AM EDT Office Visit Cardiology at [address] [place] [address] Mo Horne MD [facility] [place] [address] 09/21/2024 10:[address] [place] [phone] Rachel Carrasco MD [facility] [place] [address] 09/21/2024 11:00 AM EST Office [place] [phone] Rachel Carrasco MD [facility] [place] [address] documented as of this encounter Visit Diagnoses Not on filedocumented in this encounter Care Teams Risk Officer Relationship Specialty Start Date End Date Bin Bowman MD [address] [place] [address] PCP - General General Internal Medicine 04/21/1707/11 documented as of this encounter
--- OUTSIDE RECORDS SUMMARY | 2024-06-17 22:23 | XMS_ITS | Encounter Summary ---
Author Organization [facility] Address [facility] [place] [address] Care Team Providers Care Nurse Staff Industrial Name Role Phone Bin Bowman MD Primary Care Provider [phone] Encounter Details Date Type Department Care Team (Latest Contact Info) Description 07/05/2020 9:47 PM EDT - 07/05/2020 11:59 PM EDT Hospital [place] [address] COVID-19 Discharge Disposition: Home Social History Tobacco [...] Sustained Release 24 hrIndications:Coronary artery disease involving platinum coronary artery of platinum heart without angina pectoris,Essential hypertension,Heart palpitations Take 1 tablet by mouth 2 times daily. 90 tablet 1 07/11/2020 07/11/2020 apixaban (Eliquis) 2.5 mg Tablet Take 5 mg by mouth 2 times daily. 12/19/2020 metoprolol succinate XL (Toprol-XL) 100 mg Tablet Sustained Release 24 hrIndications:Coronary artery disease involving platinum coronary artery of platinum heart without angina pectoris,Essential hypertension,Heart palpitations Take [...] AM EDT Office Visit Cardiology at [address] [place] [address] Mo Horne MD [facility] [place] [address] 09/21/2024 10:[address] [place] [place] [address] Rachel Carrasco MD [facility] [place] [address] 09/21/2024 11:00 AM EST Office Visit Urology at [facility] [place] [address] Rachel Carrasco MD [facility] [place] [address] documented as of this encounter Procedures Procedure Name Priority Date/Time Associated Diagnosis Comments COVID-19 PCR Routine 07/05/2020 1:02 PM EDT documented in this encounter Results * COVID-19 PCR (07/05/2020 1:02 PM EDT) SARS-CoV-2 RNA Not Detected Not Detected [facility] Comment: This result should be [...] the instructions for use provided by the [employer] and additional guidance provided by CDC and FDA. Testing is performed in the Clinical Genomics and [facility] Laboratory within the Department of Pathology and Laboratory Medicine at [facility], certified under the Clinical Laboratory Improvement [...] fact sheets at the following FDA website: https://www.fda.gov/medical-devices/fzpcmmtmd-lxdguxoohh-wrmpybt-devices/emergen -us e-authorizations#iquyh73fcj SARS-CoV-2 RNA Source [employer] Swab [facility] Nasopharyngeal swab (specimen) Other / Unknown 07/05/2020 1:02 PM EDT 07/08/2020 12:15 AM EDT Narrative Resulting Agency Comment Spec In Lab Fadi Escobar MD MOLECULAR ORDERABLES Performing Organization Address City/State/[facility] Co de Phone Number [facility] [place] [address] documented in this encounter Visit Diagnoses Diagnosis COVID-19 documented in this encounter Care Teams Nurse Staff Industrial Relationship Specialty Start Date End Date Bin Bowman MD [address] [place] [address] PCP - General General Internal Medicine 04/21/1707/11 documented as of this encounter
--- OUTSIDE RECORDS SUMMARY | 2024-06-17 22:23 | XMS_ITS | Encounter Summary ---
Author Organization [facility] [place] [address] Care Team Providers Care Manager Erp Name Role Phone Bin Bowman MD Primary Care Provider [phone] Encounter Details Date Type Department Care Team (Late Contact Info) Description 07/04/2020 [facility] [place] [phone] Makayla Mcdermott, RN COVID-19 Social History Tobacco [...] AM EDT Office Visit Cardiology at [address] [address] Mo Horne MD [facility] [place] [address] 09/21/2024 10:[address] [place] [address] Rachel Carrasco MD [facility] [place] [address] 09/21/2024 11:00 AM EST Office [place] [address] Rachel Carrasco MD [facility] [place] [address] documented as of this encounter Visit Diagnoses Diagnosis COVID-19 documented in this encounter Care Teams Manager Erp Relationship Specialty Start Date End Date Bin Bowman MD [address] [place] [address] PCP - General General Internal Medicine 04/21/1707/11 documented as of this encounter
--- OUTSIDE RECORDS SUMMARY | 2024-06-17 22:23 | XMS_ITS | Encounter Summary ---
[place] [address] Care Team Providers Care Assistant Food Service Director Name Role Phone Bin Bowman MD Primary Care Provider Encounter Details Date Type Department Care Team (Late st Contact Info) Description 06/05/2018 Telephone Cardiology at [address] [address] Adrianne, Rachana L, [facility] [place] [address] Social History Tobacco Use Types Packs/Day Years [...] encounter Miscellaneous Notes * Telephone Encounter - AdrianneGenieRachana L - 06/05/2018 8:15 PM EDT Telephone Consult Note Initial Contact Date: 06/05/2018 Referring Provider: Chavo Deleon MD Patient Location: [facility] Presenting Symptoms per OSH: Rolo Aguilar is a 47 y.o. male with past medical history significant for HTN, HLD, GERD, morbid obesity, depression, bipolar, and inferior STEMI in 07/2017 who presented to [facility] with complaints of epigastric pain and nausea with some associated shoulder and back pain. The patient has chronic epigastric pain and nausea related to gallbladder disease. He is awaiting cholecystectomy in July (once he is done with 1 year of DAPT s/p his FL). The symptoms feel similar today to his chronic pain although are slightly worse. The pain has been constant since 10:30 AM. No chest pain, no shortness of breath, no diaphoresis. This pain does not feel similar to his pain with his prior FL. His back and shoulder pain is reproducible. [...] AM EDT Office Visit Cardiology at [address] [phone] Mo Horne MD [facility] [place] [address] 09/21/2024 10:[address] [place] [address] Rachel Carrasco MD [facility] [place] [address] 09/21/2024 11:00 AM EST Office [place] [address] Rachel Carrasco MD [facility] [place] [address] documented as of this encounter Visit Diagnoses Not on filedocumented in this encounter Care Teams Assistant Food Service Director Relationship Specialty Start Date End Date Bin Bowman MD [address] [place] [address] PCP - General General Internal Medicine 04/21/1707/11 documented as of this encounter
--- OUTSIDE RECORDS SUMMARY | 2024-06-17 22:23 | XMS_ITS | Encounter Summary ---
Author Organization [facility] [place] [address] Care Team Providers Care Fabrication Machine Operator Name Role Phone Bin Bowman MD Primary Care Provider [phone] Encounter Details Date Type Department Care Team (Late st Contact Info) Description 06/22/2020 Telephone Cardiology at [address] [address] Fady Lord RN Social History Tobacco Use [...] AM EDT Office Visit Cardiology at [address] [place] [address] Mo Horne MD [facility] [place] [address] 09/21/2024 10:[address] [place] [place] [address] Rachel Carrasco MD [facility] [place] [address] 09/21/2024 11:00 AM EST [place] [phone] Rachel Carrasco MD [facility] [place] [address] documented as of this encounter Visit Diagnoses Not on filedocumented in this encounter Care Teams Fabrication Machine Operator Relationship Specialty Start Date End Date Bin Bowman MD [address] [place] [address] PCP - General General Internal Medicine 04/21/1707/11 documented as of this encounter
--- OUTSIDE RECORDS SUMMARY | 2024-06-17 22:23 | XMS_ITS | Encounter Summary ---
Author Organization [facility] [place] [address] Care Team Providers Care Client Service Manager Name Role Phone Bin Bowman MD Primary Care Provider Encounter Details Date Type Department Care Team (Late st Contact Info) Description 06/05/2018 External [place] [address] Rachana Silver [facility] [address] Social History Tobacco Use Types Packs/Day Years [...] AM EDT Office Visit Cardiology at [address] [phone] Mo Horne MD [facility] [place] [address] 09/21/2024 10:[address] [place] [place] [address] Rachel Carrasco MD [facility] [place] [address] 09/21/2024 11:00 AM EST [place] [address] Rachel Carrasco MD [facility] [place] [address] documented as of this encounter Procedures Procedure Name Priority Date/Time Associated Diagnosis Comments ECG SCAN Routine 06/05/2018 documented in this encounter Results * Scan Doc: ECG (06/05/2018) Rachana Silver DO MEDIA MGR SCAN EX T ORDR/RSLT documented in this encounter Visit Diagnoses Not on filedocumented in this encounter Care Teams Client Service Manager Relationship Specialty Start Date End Date Bin Bowman MD [address] [place] [address] PCP - General General Internal Medicine 04/21/1707/11 documented as of this encounter
--- OUTSIDE RECORDS SUMMARY | 2024-06-17 22:23 | XMS_ITS | Encounter Summary ---
Author Organization [facility] Address [facility] [place] [address] Care Team Providers Care Lab Aid Name Role Phone Bin Bowman MD Primary Care Provider Reason for Visit * Auth/Cert Specialty Diagnoses / Procedures Referred By Zeyad t Referred To Contact Diagnoses . Procedures ELECTROPHYSIOLOGY PROCEDURE Referral ID Status Reason Start Date Expiration Date Visits Re quested Visits Authorized [id number] 1 1 Encounter Details Date Type Department Care Team (Late st Contact Info) Description 07/10/2020 9:53 AM EDT Anesthesia Event [place] [address] Xander Galvez MD [facility] [place] [address] Emanuel Becerra MD [facility] [place] [address] Anesthesia Record Procedure Summary Procedure Name Responsible [...] Kim Osorio CRNA 07/10/20 1627 by Autumn Dobson, RN Incision 07/21/18; 1252; abdo men; laparoscopic punctures (specify) (Multiple trocar sites. ); 07/10/20; 1627 07/21/18 1252 by Adriana Neil RN 07/10/20 1627 by Autumn Dobson, RN Arterial Line 07/10/20; radial art aiden, left; 20 gauge; Gandevia; Sterile Prep, Sterile Gloves; no longer indicated; 07/11/20; 1045 07/10/20 0000 by Autmun Dobson RN 07/11/20 1045 by Marilu Lopez [...] 0821; median cubital vein (antecubital fossa), left; ydcp-bpz-jjityt catheter system; 20 gauge; Rivas RN; distraction, [...] 1023; metacarpal vein (top of hand), left; qndi-wda-kecurg catheter system; 18 gauge; Gandevia; no longer [...] RN LDA Cath/EP Sheath 07/10/20; 1128; 5.5 Armenian (Fr); Left; Femoral (LFV) 07/10/20 1128 by [...] Procedure Summary Date: 07/10/20 Room / Location: [facility] B-LAB ROOM 4 / [facility] EP LABS Anesthesia Start: 952 Anesthesia Stop: 1650 Procedure: ELECTROPHYSIOLOGY PROCEDURE (N/A ) Diagnosis: SVT (supraventricular tachycardia) Atrial tachycardia Wide-complex tachycardia (.) Provider: Fadi Escobar MD Responsible Provider: Xander Galvez MD Anesthesia Type: general ASA Status: 3 All Anesthesia Providers: Anesthesiologist: Emanuel Becerra MD; Xander Galvez MD VIOLIN MECHANIC: Xander Hairston CRNA Vitals Value Taken Time BP 113/64 07/10/20 1802 Temp 36.4 ??C (97.5 ??F) 07/10/20 1745 Pulse 70 07/10/20 1821 Resp 16 07/10/20 1730 SpO2 93 % 07/10/20 1821 Pain Level 3 07/10/20 1735 Vitals shown include unvalidated device data. Patient Location: PACU/[facility] Level of Consciousness: Awake and [...] EF 60%. Many ER visits to [facility] after this. ??? Heart palpitations ??? Obesity ??? Essential hypertension No past medical history on file. Past Surgical History: Procedure Laterality Date ??? PRO LAP, CHOLECYSTECTOMY/GRAPH N/A 07/21/2018 LAPAROSCOPIC CHOLECYSTECTOMY WITH CHOLANGIOGRAM (WRVU 11.47) performed by Colt Hewitt MD [facility] MAIN OR ??? PRO UNLISTED LAPAROSCOPIC PX LVR N/A 07/21/2018 LAPAROSCOPIC LIVER BIOPSY (WRVU 16.52) performed by Colt Hewitt MD at [facility] MAIN OR ??? PRO UPPER GI ENDOSCOPY, BIOPSY N/A 12/29/2017 UPPER GASTROINTESTINAL ENDOSCOPY,WITH BIOPSY SINGLE OR MULTIPLE (WRVU 2.49) performed by Yusuf Tucker MD at [facility] ENDOSCOPY ??? PRO UPPER GI ENDOSCOPY, DIAGNOSTIC N/A 12/29/2017 EGD, UPPER GI ENDOSCOPY performed by Yusuf Tucker MD at [facility] ENDOSCOPY Social History Tobacco Use ??? [...] Coronary artery disease > July 2017 at [facility]: Non-STEMI ([facility]) > [...] risks discussed with patient. Plan discussed with VIOLIN MECHANIC and attending. PAT Clinic Note documented in this encounter Plan of Treatment Upcoming Encounters Date Type Department Care Team (Late st Contact Info) Description 06/23/2024 10:00 AM EDT Office Visit Cardiology at [address] [address] Mo Horne MD [facility] [place] [address] 09/21/2024 10:[address] [place] [place] [address] Rachel Carrasco MD [facility] [place] [address] 09/21/2024 11:00 AM EST Office [place] [phone] Rachel Carrasco MD [facility] [place] [address] documented as of this encounter Visit Diagnoses [...] mg documented in this encounter Care Teams Lab Aid Relationship Specialty Start Date End Date Bin Bowman MD [address] [address] PCP - General General Internal Medicine 04/21/1707/11 documented as of this encounter
--- OUTSIDE RECORDS SUMMARY | 2024-06-17 22:23 | XMS_ITS | Encounter Summary ---
Author Organization [facility] [place] [address] Care Team Providers Care Linux Consultant Name Role Phone Bin Bowman MD Primary Care Provider [phone] Reason for Visit * Reason Onset Date Comments Follow-up 06/01/2020 Encounter Details Date Type Department Care Team (Late st Contact Info) Description 06/01/2020 Telephone Cardiology at [address] [phone] Fady Lord RN Follow-up Social History Tobacco [...] AM EDT Office Visit Cardiology at [address] [place] [address] Mo Horne MD [facility] [place] [address] 09/21/2024 10:[address] [place] [address] Rachel Carrasco MD [facility] [place] [address] 09/21/2024 11:00 AM EST Office [place] [address] Rachel Carrasco MD [facility] [place] [address] documented as of this encounter Visit Diagnoses Not on filedocumented in this encounter Care Teams Linux Consultant Relationship Specialty Start Date End Date Bin Bowman MD [address] [place] [address] PCP - General General Internal Medicine 04/21/1707/11 documented as of this encounter
--- OUTSIDE RECORDS SUMMARY | 2024-06-17 22:23 | XMS_ITS | Encounter Summary ---
Author Organization [facility] Address [facility] [place] [address] Care Team Providers Care Winch Derrick Operator Name Role Phone Bin Bowman MD Primary Care Provider [phone] Reason for Visit * Reason Comments Pain Management * Consultation (Routine) - Closed Specialty Diagnoses / Procedures Referred By Zeyad mishra Referred To Contact Pain Management Diagnoses Mononeuropathy, unspecified abdominal nerve entrapment/CT 03/13/19 Jude Dennison V, [address] [place] [address] [facility] [address] [place] [phone] Referral ID Status Reason Start Date Expiration Date Visits Re quested Visits Authorized [id number] Closed 05/04/2019 05/03/2020 1 1 Encounter Details Date Type Department Care Team (Late st Contact Info) Description 06/04/2019 8:30 AM EDT Office Visit [place] [address] [facility] [place] [address] Abdominal wall pain in right upper quadrant; [...] documented in this encounter Progress Notes * Linh Lux MD - 06/04/2019 8:30 AM EDT [facility] Initial Consultation Note DOS: 06/04/19 : 1970 Rolo Aguilar is a 48 y.o. year old male with a PMH including CO who presents to the pain clinic today at the referral of Jude Dennison PA [address] [place] [address] for consultation regarding Abdominal Pain. CC: Chief [...] to get offof plavix due to recent CO prior to lap sourav (one year ago which was not helpful in resolving his symptoms. Never any bowel symptoms but had associated nausea. Taking lansoprazole once daily in the morning and famotidine at night before bed. Was using carafate for a little while. [place] this helped. Approximately 6 weeks ago his [...] (WRVU 11.47) performed by Colt Hewitt MD [facility] MAIN OR ??? PRO UNLISTED LAPAROSCOPIC PX LVR N/A 07/21/2018 LAPAROSCOPIC LIVER BIOPSY (WRVU 16.52) performed by Colt Hewitt MD at [facility] MAIN OR ??? PRO UPPER GI ENDOSCOPY, BIOPSY N/A 12/29/2017 UPPER GASTROINTESTINAL ENDOSCOPY,WITH BIOPSY SINGLE OR MULTIPLE (WRVU 2.49) performed by Yusuf Tucker MD at [facility] ENDOSCOPY ??? PRO UPPER GI ENDOSCOPY, DIAGNOSTIC N/A 12/29/2017 EGD, UPPER GI ENDOSCOPY performed by Yusuf Tucker MD at [facility] ENDOSCOPY FAMILY HISTORY: See ORT SOCIAL HISTORY: Tobacco : Quit 8 years ago Alcohol : None Recreational drug use : Medical cannabis helpful but stopped using 4 months ago Work :[employer] Home : At home with and mom [...] affect, A&Ox3 , answers questions appropriately Neurologic: customs appraiser - grossly intact Reflexes - 2+ and [...] care. Linh Lux MD [facility] Organizer of Anesthesiology [facility] [address] [address] / [facility] CC: Jude Dennison PA [address] [place] [address] documented in this encounter Plan of Treatment Upcoming Encounters Date Type Department Care Team (Late st Contact Info) Description 06/23/2024 10:00 AM EDT Office Visit Cardiology at [address] [place] [phone] [facility] [place] [address] 09/21/2024 10:[address] Scan at [place] [phone] [facility] [place] [address] 09/21/2024 11:00 AM EST Office Visit Urology at [place] [phone] [facility] [place] [address] documented as of this encounter Visit Diagnoses Diagnosis Abdominal wall pain in right upper quadrant Abdominal pain, right upper quadrant Myofascial pain Mylagia and myositis, unspecified documented in this encounter Care Teams Winch Derrick Operator Relationship Specialty Start Date End Date Bin Bowman MD [address] [place] [address] PCP - General General Internal Medicine 04/21/1707/11 documented as of this encounter
--- OUTSIDE RECORDS SUMMARY | 2024-06-17 22:23 | XMS_ITS | Encounter Summary ---
Author Organization [facility] Address [facility] [place] [address] Care Team Providers Care Molder Helper Name Role Phone Bin Bowman MD Primary Care Provider [phone] Reason for Visit * Auth/Cert Specialty Diagnoses / Procedures Referred By Zeyad mishra Referred To Contact Diagnoses BILIARY COLIC Procedures PRO LAP, CHOLECYSTECTOMY/GRAPH PRO UNLISTED LAPAROSCOPIC PX LVR LAPAROSCOPIC CHOLECYSTECTOMY WITH CHOLANGIOGRAM (WRVU 11.47) LAPAROSCOPIC LIVER BIOPSY (WRVU 16.52) Referral ID Status Reason Start Date Expiration Date Visits Re quested Visits Authorized [id number] 1 1 Encounter Details Date Type Department Care Team (Late st Contact Info) Description 07/21/2018 12:47 PM EDT - 07/21/2018 3:56 PM EDT Surgery [place] [address] Colt Hewitt MD [facility] [place] [address] LAPAROSCOPIC CHOLECYSTECTOMY WITH CHOLANGIOGRAM (WRVU 11.47) Social [...] have any questions or concerns, please call [phone] before 5pm Friday through Friday; or [phone] after 5pm and on weekends. Diet: regular [...] 11:40 AM Colt Hewitt MD [facility] documented in this encounter Medications at [...] 2.49) performed by Yusuf Tucker MD at [facility] ENDOSCOPY ??? PRO UPPER GI ENDOSCOPY, DIAGNOSTIC N/A 12/29/2017 EGD, UPPER GI ENDOSCOPY performed by Yusuf Tucker MD at [facility] ENDOSCOPY SH: Non smoker Objective: [...] Hewitt MD - 07/21/2018 4:12 PM EDT [facility] [place] Patient Name: Rolo Aguilar : [id number] MR#: [id number] Case Date: 07/21/2018 Surgeon: Surgeon(s) and Role: * Colt Hewitt MD - Primary * Guerline Traore MD - Resident-Proof Tester * Jesse Pollack MD - Fellow Preoperative [...] AM EDT Office Visit Cardiology at [address] [phone] Mo Horne MD [facility] [place] [address] 09/21/2024 10:[address] [place] [place] [phone] Rachel Carrasco MD [facility] [place] [address] 09/21/2024 11:00 AM EST Office [place] [phone] Rachel Carrasco MD [facility] [place] [address] documented as of this encounter Procedures Procedure [...] PM EDT 07/21/2018 2:20 PM EDT Narrative [facility] - 07/21/2018 2:20 PM EDT Specimen requisition ordered. ??Separate Pathology report to follow Resulting Agency Comment Spec In Lab Colt Hewitt MD PATHOLOGY/CYTOLOGY ORDERABLES Performing Organization Address City/State/[facility] Co de Phone Number [facility] [place] [address] * Surgical Pathology Report (07/21/2018 1:39 PM EDT) Final Diagnosis [id number] ? Location: [facility]; [facility]; A The signing pathologist has (i) examined [...] Durbin MD Verified: ??07/24/2018 ?Pathologist Performed at: ??-[facility] [place], [place], [place] CLINICAL INFORMATION Specimen Submitted: A - [...] black. Sections/Processin g: Cystic duct margin and route service representative gallbladder body sections submitted. (R1) ??rm 07/24/2018 4:34 PM EDT [facility] GALLBLADDER STRUCTURE / Unknown 07/21/2018 1:39 PM EDT 07/21/2018 1:39 PM EDT GALLBLADDER STRUCTURE / Unknown 07/21/2018 1:39 PM EDT 07/21/2018 1:39 PM EDT Colt Hewitt MD PATHOLOGY/CYTOLOGY ORDERABLES [facility] [place] [address] * Specimen to Pathology (07/21/2018 1:39 PM EDT) AP Specimen 07/21/2018 1:39 PM EDT 07/21/2018 2:20 PM EDT Narrative [facility] - 07/21/2018 2:20 PM EDT Specimen requisition ordered. ??Separate Pathology report to follow Resulting Agency Comment Spec In Lab Colt Hewitt MD PATHOLOGY/CYTOLOGY ORDERABLES Performing Organization Address [facility]/ZIP Co de Phone Number [facility] [place] [address] * XR Fluoro No Rad <1Hr - OR Use (07/21/2018 1:30 PM EDT) Narrative RAD - 07/21/2018 1:42 PM EDT This order does not need a radiologist interpretation. ?? Colt Hewitt MD IMG FLUORO ORDERABL ES Performing Organization Address [facility] Co de Phone Number [place], [place] documented in this encounter Visit Diagnoses [...] Cintia Vieira RN)1448 (Given - Provider: Cintia Vieira, FLAVIA)1456 (Given - Provider: Cintia Vieira RN) iohexol [...] Routine documented in this encounter Care Teams Molder Helper Relationship Specialty Start Date End Date Bin Bowman MD [address] [place] [address] PCP - General General Internal Medicine 04/21/1707/11 documented as of this encounter
--- OUTSIDE RECORDS SUMMARY | 2024-06-17 22:23 | XMS_ITS | Encounter Summary ---
Author Organization [facility] Address [facility] [place] [address] Care Team Providers Care Pharmaceutical Scientist Name Role Phone Bin Bowman MD Primary Care Provider [phone] Encounter Details Date Type Department Care Team (Latest Contact Info) Description 06/05/2020 10:08 AM EDT - 06/05/2020 11:59 PM EDT Hospital Encounter Non-In[place] [address] Fadi Escobar MD [facility] [place] [address] Heart palpitations Discharge Disposition: Home Social History [...] Sustained Release 24 hrIndications:Coronary artery disease involving [place] coronary artery of [place] heart without angina pectoris,Essential hypertension,Heart palpitations Take [...] 10:00 AM EDT Office Visit Cardiology at [address] [place] [address] Mo Horne MD [facility] [place] [address] 09/21/2024 10:[address] [place] [place] [address] Rachel Carrasco MD [facility] [place] [address] 09/21/2024 11:00 AM EST Office Visit Urology at [facility] [place] [address] Rachel Carrasco MD [facility] [place] [address] Pending Results Name Type Priority Associated Diagnoses Date /Time Holter Monitor 48hr Cardiac Services Routine Heart palpitations 06/05/2020 10:44 AM EDT Scheduled Orders Name Type Priority Associated Diagnoses Orde r Schedule Holter Monitor 48hr Cardiac Services Routine Heart palpitations 1 Occurrences starting 06/05/2020 until 06/05/2020 documented as of this encounter Visit Diagnoses Diagnosis Heart palpitations Palpitations documented in this encounter Care Teams Pharmaceutical Scientist Relationship Specialty Start Date End Date Bin Bowman MD [address] [place] [address] PCP - General General Internal Medicine 04/21/1707/11 documented as of this encounter
--- OUTSIDE RECORDS SUMMARY | 2024-06-17 22:23 | XMS_ITS | Encounter Summary ---
Author Organization [facility] [place] [address] Care Team Providers Care Quality Control Associate Name Role Phone Bin Bowman MD Primary Care Provider Reason for Visit * Reason Onset Date Comments Medication Refill 07/11/2020 Encounter Details Date Type Department Care Team (Late st Contact Info) Description 07/11/2020 Refill Cardiology at [address] [address] Mary Daley PA [facility] [place] [address] Medication Refill Social History Tobacco Use Types [...] AM EDT Office Visit Cardiology at [address] [address] Mo Horne MD [facility] [place] [address] 09/21/2024 10:[address] [place] [place] [address] Rachel Carrasco MD [facility] [place] [address] 09/21/2024 11:00 AM EST [place] [phone] Rachel Carrasco MD [facility] [place] [address] documented as of this encounter Visit Diagnoses Diagnosis Coronary disease Essential hypertension Unspecified essential hypertension Heart palpitations Palpitations documented in this encounter Care Teams Quality Control Associate Relationship Specialty Start Date End Date Bin Bowman MD [address] [address] PCP - General General Internal Medicine 04/21/1707/11 documented as of this encounter
--- OUTSIDE RECORDS SUMMARY | 2024-06-17 22:23 | XMS_ITS | Encounter Summary ---
Author Organization [facility] Address [facility] [place] [address] Care Team Providers Care Outside Industrial Sales Representative Name Role Phone Bin Bowman MD Primary Care Provider Reason for Visit * Auth/Cert Specialty Diagnoses / Procedures Referred By Zeyad mishra Referred To Contact Diagnoses . Procedures ELECTROPHYSIOLOGY PROCEDURE Referral ID Status Reason Start Date Expiration Date Visits Re quested Visits Authorized [id number] 1 1 Encounter Details Date Type Department Care Team (Late st Contact Info) Description 07/10/2020 8:30 AM EDT - 07/10/2020 3:29 PM EDT Surgery [place] [address] Fadi Escobar MD [facility] [place] [address] ELECTROPHYSIOLOGY PROCEDURE Social History Tobacco Use Types [...] Rolo Aguilar Patient Age: 49 y.o. Language: [place] Race: White Ethnicity: Not nor Admit date: 07/10/2020 Discharge date and time: 07/11/2020 Attending Physician: Fadi Escobar MD Discharge Physician: Fadi Escobar MD Follow-up Recommendations for Providers: - s/p CTI ablation (atrial flutter ablation) - follow-up with EP in ~3 months Inpatient Provider Contact Information: Cardiac Electrophysiology - Weekends and holidays call [phone]; ask for food and beverage coordinator director organizational. Discharge Diagnoses (Hospital Problems) and Secondary Diagnoses [...] medications initiated at the [facility]. The patient should be aware and informed [...] his/her physician or the Cardiac Electrophysiology Service ([phone]). Cardiac Electrophysiology Attending This patient was reviewed with Mr. Kahn and Dr. De Anda. I discussed procedural results and findings with Mr. Aguilar, and recommended follow up in ~3 months (sooner prn) after he wears a Zio monitor and results are available. If insurance in [place] fails to cover the cost of the [...] medications initiated at the [facility]. The patient should be aware and informed [...] his/her physician or the Cardiac Electrophysiology Service ([phone]). documented in this encounter Medications at Time [...] OM1. EF 60%. Many ER visits to [facility] after this. ??? Heart [...] contact EP with any further questions (pager [phone]). SONNY Grover 07/11/2020 Pager: [phone] * Justa Rider, FLAVIA - 07/10/2020 10:29 [...] Interval History and Physical Exam: Planned Procedure [facility]ROP[facility]OLOGY [facility]ORATORIES HISTORY OF PRESENT ILLNESS: Rolo Aguilar is a 49 y.o. male with multiple symptomatic dysrhythmias recently. April 27 to the Emergency Department in [facility] with an episode of supraventricular tachycardia [...] 16.52) performed by Colt Hewitt MD at [facility] MAIN OR ??? PRO UPPER GI ENDOSCOPY, BIOPSY N/A 12/29/2017 UPPER GASTROINTESTINAL ENDOSCOPY,WITH BIOPSY SINGLE OR MULTIPLE (WRVU 2.49) performed by Yusuf Tucker MD at [facility] ENDOSCOPY ??? PRO UPPER GI ENDOSCOPY, DIAGNOSTIC N/A 12/29/2017 EGD, UPPER GI ENDOSCOPY performed by Yusuf Tucker MD at [facility] ENDOSCOPY Accessory Clinical Findings: Laboratory Data: [...] service for dysrythmnia. He is insured through [place] Medicaid with prescription coverage. Per discussion with [...] AM EDT Office Visit Cardiology at [address] [address] Mo Horne MD [facility] [place] [address] 09/21/2024 10:[address] [place] [place] [phone] Rachel Carrasco MD [facility] [address] 09/21/2024 11:00 AM EST [place] [phone] Rachel Carrasco MD [facility] [address] Scheduled Orders Name Type Priority Associated Diagnoses Orde r Schedule EKG 12 Lead ECG Routine SVT (supraventricular tachycardia) One Time for 1 Occurrences starting 07/11/2020 until 07/11/2020 documented as of this encounter Procedures Procedure [...] (Bezet) 426 ms MUSE SYSTEM Calculated P [place] 27 degrees MUSE SYSTEM Calculated R [place] 29 degrees MUSE SYSTEM Calculated T [place] 18 degrees MUSE SYSTEM INTERPRETATION Normal sinus rhythm Normal ECG When compared with ECG of 16-JUL-2017 06:45, T wave inversion less evident in Inferior leads Nonspecific T wave abnormality no longer evident in Lateral leads I personally reviewed the tracing and edited the fellows interpretation Confirmed by fellow Humza Wilson ([id number]) on 07/10/2020 11:25:10 AM Confirmed by MD Anand Stanislav ([id number]) on 07/10/2020 2:19:23 PM MUSE SYSTEM 07/10/2020 8:14 AM EDT 07/10/2020 2:19 PM EDT Fadi Escobar MD ECG ORDERABLES MUSE SYSTEM * Differential, Automated (07/10/2020 7:38 AM EDT) Neutrophil % 57.6 % [facility] Neutrophil Absolute 5.69 1.70 - 6.10 x10(3)/mcL [facility] Lymph % 31.6 % [facility] Lymphocytes Abs 3.1 0.9 - 3.2 x10(3)/[facility] Monocyte % 7.6 % [facility] Monocyte Abs 0.8 0.3 - 0.9 x10(3)/[facility] Eos % 2.2 % [facility] Eosinophils Abs 0.2 0.0 - 0.4 x10(3)/[facility] Basophil % 0.6 % [facility] Baso Absolute 0.1 0.0 - 0.1 x10(3)/[facility] Immature Gran % 0.40 % [facility] Comment: Immature granulocytes(IG's)percentage and absolute count will include metamyelocytes, myelocytes, and promyelocytes. Blood smears from CBCs yielding IG's will be scanned manually for concordance. If this scan disagrees with the automated IG or if promyelocytes are noted, a manual differential will be performed. Immature Gran Absolute 0.04 0.00 - 0.04 x10(3)/[facility] Blood specimen (specimen) 07/10/2020 7:38 AM EDT 07/10/2020 7:55 AM EDT Narrative Resulting Agency Comment Spec In Lab Fadi Escobar MD HEMATOLOGY ORDERABLE S [facility] [place] [address] * (ABNORMAL) Hemogram (07/10/2020 7:38 AM EDT) White Blood Cell 9.9(H) 4.0 - 9.5 x10(3)/ L [facility] Red Blood Cell 5.29 4.58 - 5.54 x10(6)/ L [facility] Hemoglobin 15.6 13.7 - 16.5 gm/dL [facility] Hematocrit 47.3 40.5 - 48.5 % [facility] Mean Cell Volume 89.4 82.9 - 93.1 fL [facility] Mean Cell Hemoglobin 29.5 27.5 - 32.1 pg [facility] Mean Cell Hemoglobin Concentration 33.0 32.0 - 35.7 gm/dL [facility] Platelet 208 145 - 357 x10(3)/mc L [facility] RDW Standard Deviation 41.3 36.0 - 45.0 fL [facility] RDW coefficient of variation 12.5 11.4 - 13.8 % [facility] Mean Platelet Volume 10.7 7.6 - 12.9 fL [facility] NRBC% auto 0.0 % [facility] NRBC Absolute 0.000 0.000 - 0.000 x10(3)/mc L [facility] Blood specimen (specimen) 07/10/2020 7:38 AM EDT 07/10/2020 7:55 AM EDT Narrative Resulting Agency Comment Spec In Lab Fadi Escobar MD HEMATOLOGY ORDERABLE S [facility] [place] [address] * (ABNORMAL) BMP w/fasting Glucose (07/10/2020 7:38 [...] of Diabetes Mellitus, Position Statement from the [place] [employer]. ??Diabetes Care, Volume 33, Supplement 1, Nov 2009 Blood Urea Nitrogen 13 10 - 20 mg/dL [facility] [...] mmol/L [facility] Carbon Dioxide 32(H) 22 - 31 mmol/L [facility] Anion Gap 8 5 - 15 mmol/L [facility] Calcium 10.0 8.5 - 10.5 mg/dL [facility] Est Glomerular Filtration Rate 82 >=60 mL/min/1. 73 m?? [facility] Comment: The eGFR was calculated using the CKD-EPI equation. As with all creatinine based estimates of kidney function, eGFR values calculated with the CKD-EPI equation are not accurate in patients with acute kidney failure, extremes of body mass or the acutely ill. [email or web address]/[facility]kf eGFR 95 >=60 mL/min/1. 73 m?? [facility] Comment: The eGFR was calculated using the CKD-EPI equation. As with all creatinine based estimates of kidney function, eGFR values calculated with the CKD-EPI equation are not accurate in patients with acute kidney failure, extremes of body mass or the acutely ill. [email or web address]/DHnkf Blood specimen (specimen) 07/10/2020 7:38 AM EDT 07/10/2020 7:56 AM EDT Narrative Resulting Agency Comment Spec In Lab Fadi Escobar MD CHEMISTRY ORDERABLES [facility] [place] [address] * (ABNORMAL) Prothrombin Time (07/10/2020 7:38 AM EDT) Prothrombin Time 14.0(H) 9.4 - 12.5 sec [facility] International Normalization Ratio 1.2 [facility] Comment: An INR [...] S [facility] [place] [address] documented in this encounter Visit Diagnoses Diagnosis [...] 2132 (Given - Provider: Justa Rider RN) 902 (Given - Provider: Kati Edmonds, FLAVIA) lamoTRIgine (LaMICtal) tablet 200 mg 200 mg, Oral, DAILY, First dose on Fri07/10/20 at 1930, Until Discontinued, Routine 2131 (Given - Provider: Justa Rider RN) 901 (Given - Provider: Kati Edmonds RN) lidocaine [...] 2132 (Given - Provider: Justa Rider RN) 0902 (Given - Provider: Kati Edmonds, FLAVIA) sodium chloride 0.9 % (flush) flush 5 mL 5 mL, Intravenous, 2 TIMES DAILY, First dose on Fri07/10/20 at 2100, Until Discontinued, Recovery (Recovery-Hospital Unit), Routine 2140 (Given - Provider: Justa Rider RN) 0900 (Canceled Entry - Provider: Kati Edmonds RN [...] DO NOT SPLIT, CRUSH OR OPEN, Routine 2136 (Given - Provider: Justa Rider RN) 09 (Given - Provider: Kati Edmonds RN) HYDROmorphone [...] Recovery, Routine 1655 (Given - Provider: Autumn Dobson, FLAVIA)1709 (Given - Provider: Autumn Dobson, FLAVIA)1735 (Given - Provider: Autumn Dobson RN) lidocaine [...] Routine documented in this encounter Care Teams Outside Industrial Sales Representative Relationship Specialty Start Date End Date Bin Bowman MD [address] [place] [address] PCP - General General Internal Medicine 04/21/1707/11 documented as of this encounter
--- OUTSIDE RECORDS SUMMARY | 2024-06-17 22:23 | XMS_ITS | Encounter Summary ---
Author Organization [facility] [place] [address] Care Team Providers Care Environmental Systems Coordinator Name Role Phone Bin Bowman MD Primary Care Provider Reason for Visit * Reason Comments Medication Refill Encounter Details Date Type Department Care Team (Late st Contact Info) Description 06/27/2018 Refill [place] [address] Hawk Coker DO [facility] HEMATOLOGY/[place] [address] Social History Tobacco Use Types Packs/Day Years [...] AM EDT Office Visit Cardiology at [address] [address] Mo Horne MD [facility] [address] 09/21/2024 10:[address] [place] [place] [address] Rachel Carrasco MD [facility] [place] [address] 09/21/2024 11:00 AM EST [place] [address] Rachel Carrasco MD [facility] [place] [address] documented as of this encounter Visit Diagnoses Not on filedocumented in this encounter Care Teams Environmental Systems Coordinator Relationship Specialty Start Date End Date Bin Bowman MD [address] [address] PCP - General General Internal Medicine 04/21/1707/11 documented as of this encounter
--- OUTSIDE RECORDS SUMMARY | 2024-06-17 22:23 | XMS_ITS | Encounter Summary ---
Author Organization [facility] Address [facility] [place] [address] Care Team Providers Care Worm Sorter Name Role Phone Bin Bowman MD Primary Care Provider [phone] Reason for Visit * Consultation (Routine) - Closed Specialty Diagnoses / Procedures Referred By Contact Referred To Contact Electrophysiology / Cardiology Diagnoses atrial fibrillation Procedures atrial fibrillation oJse Culver MD [address] [place] [address] [facility] [address] [place] [phone] Referral ID Status Reason Start Date Expiration Date V isits Requested Visits Authorized [id number] Closed Consult, Test & Treat 05/09/2020 05/09/2021 1 1 Encounter Details Date Type Department Care Team (Latest Contact Info) Description 05/16/2020 2:00 PM EDT TH Visit (TeleHealth) Cardiology at [address] [address] Fadi Escobar MD [facility] [address] SVT (supraventricular tachycardia); Atrial tachycardia; [...] Cardiac Electrophysiology Telephone Visit May 16, 2020 Egg Trayer: Jeremie Patton MD Primary Care Physician: Bin Bowman MD Reason for Consultation: Supraventricular tachycardia, atrial flutter/fibrillation, and wide complex tachycardia Backgound: Mr. Aguilar is a 49 year old gentleman referred by Jose Culver MD, for several recent manifestly symptomatic cardiac dysrhythmias. Mr. Aguilar had [facility] episode of supraventricular [...] Coronary artery disease > July [address] 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 Tests: Stress Imaging (March 14, 2019; [facility]): Moderate size severely intense fixed inferolateral [...] Electrocardiogram (April 27, 2020): Sinus rhythm 82/minute, VT 156 m, QRS duration 102 ms, QTc [...] AM EDT Office Visit Cardiology at [address] [address] Mo Horne MD [facility] [place] [address] 09/21/2024 10:[address] [place] [place] [phone] Rachel Carrasco MD [facility] [place] [address] 09/21/2024 11:00 AM EST [place] [address] Rachel Carrasco MD [facility] [place] [address] documented as of this encounter Procedures Procedure [...] corresponding intermittently to narrow complex tachycardia with gybjl-rb-nlr RP interval, documented sustained wide complex tachycardia [...] a cycle length of 1020 milliseconds (ms): VT: ?150 ms (P wave duration 140 ms) AH: ? 60 ms HV: ? 50 ms QRS: ?? 100 ms QT: ?410 ms 2) Atrial overdrive pacing was accomplished from the proximal coronary sinus (CS), and the atrioventricular (AV) Wenckebach block CL was observed at 330 ms. There was no pre-excitation or conduction aberrancy identified. The puhxibnf-an-WWX interval > QRS-QRS interval just prior to [...] a similar result other than for transient VT interval prolongation. A subsequent 30 mg intravenous [...] Atrial Flutter: The tip of a CARTO Ophis Vape ThermoCool SF 7.5 Fr ablation catheter (with [...] drop (while observing for changes in the VT interval and for the emergence of an [...] the catheter away resulted in almost immediate faith of 1:1 conduction, with normal manifest conduction [...] Dose: ?443 mGy Total Radiofrequency Energy Delivered: 74736 Joules Total Actual Ablation Time: ?16:54 minuts:seconds [...] tachycardia documented in this encounter Care Teams Worm Sorter Relationship Specialty Start Date End Date Bin Bowman MD [address] [place] [address] PCP - General General Internal Medicine 04/21/1707/11 documented as of this encounter
--- OUTSIDE RECORDS SUMMARY | 2024-06-17 22:23 | XMS_ITS | Encounter Summary ---
Author Organization [facility] Address [facility] [place] [address] Care Team Providers Care Cytology Laboratory Manager Name Role Phone Bin Bowman MD Primary Care Provider Encounter Details Date Type Department Care Team (Late st Contact Info) Description 05/07/2020 External [place] [phone] Social History Tobacco Use Types Packs/Day Years [...] AM EDT Office Visit Cardiology at [address] [place] [address] Mo Horne MD [facility] [place] [address] 09/21/2024 10:[address] [place] [place] [phone] Rachel Carrasco MD [facility] UROLOGY [place], [place] [address] 09/21/2024 11:00 AM EST Office Visit Urology at [facility] [place] [address] Rachel Carrasco MD [facility] [place] [address] documented as of this encounter Procedures Procedure Name Priority Date/Time Associated Diagnosis Comments ECG SCAN Routine 05/07/2020 documented in this encounter Results * Scan Doc: ECG (05/07/2020) Historical Provider MD [facility]SON MGR SCAN EX T ORDR/RSLT documented in this encounter Visit Diagnoses Not on filedocumented in this encounter Care Teams Cytology Laboratory Manager Relationship Specialty Start Date End Date Bin Bowman MD [address] [place] [address] PCP - General General Internal Medicine 04/21/1707/11 documented as of this encounter
--- OUTSIDE RECORDS SUMMARY | 2024-06-17 22:23 | XMS_ITS | Encounter Summary ---
Author Organization [facility] [place] [address] Care Team Providers Care Chief Lock Tender Operator Name Role Phone Bin Bowman MD Primary Care Provider Reason for Visit * Reason Onset Date Comments Medication Refill 05/26/2020 Encounter Details Date Type Department Care Team (Late st Contact Info) Description 05/26/2020 Refill Cardiology at [address] [address] Jeremie Patton MD [facility] [address] Medication Refill Social History Tobacco Use Types [...] AM EDT Office Visit Cardiology at [address] [address] Mo Horne MD [facility] [address] 09/21/2024 10:[address] [place] [place] [address] Rachel Carrasco MD [facility] [place] [address] 09/21/2024 11:00 AM EST [place] [phone] Rachel Carrasco MD [facility] [place] [address] documented as of this encounter Visit Diagnoses Diagnosis Coronary disease Essential hypertension Unspecified essential hypertension documented in this encounter Care Teams Chief Lock Tender Operator Relationship Specialty Start Date End Date Bin Bowman MD [address] [place] [address] PCP - General General Internal Medicine 04/21/1707/11 documented as of this encounter
--- OUTSIDE RECORDS SUMMARY | 2024-06-17 22:23 | XMS_ITS | Encounter Summary ---
Author Organization [facility] [place] [address] Care Team Providers Care Protection Analyst Name Role Phone Bin Bowman MD Primary Care Provider Reason for Visit * Auth/Cert Specialty Diagnoses / Procedures Referred By Zeyad mishra Referred To Contact Diagnoses BILIARY COLIC Procedures PRO LAP, CHOLECYSTECTOMY/GRAPH PRO UNLISTED LAPAROSCOPIC PX LVR LAPAROSCOPIC CHOLECYSTECTOMY WITH CHOLANGIOGRAM (WRVU 11.47) LAPAROSCOPIC LIVER BIOPSY (WRVU 16.52) Referral ID Status Reason Start Date Expiration Date Visits Re quested Visits Authorized [id number] 1 1 Encounter Details Date Type Department Care Team (Late st Contact Info) Description 07/21/2018 12:20 PM EDT Anesthesia Event [place] [address] Anali Smith MD [facility] [place] [address] Kim Osorio CRNA [facility] [place] [address] Anesthesia Record Procedure Summary Procedure Name Responsible Anesthesiologist Anesthesia Start Time Anesthesia Stop Time LAPAROSCOPIC CHOLECYSTECTOMY WITH CHOLANGIOGRAM (WRVU 11.47) (Abdomen) Anali Smith MD 07/21/18 1220 07/21/18 1415 Events Date Time Event Comment 07/21/2018 1220 Start 1223 AN Verify 1224 An Start Data 1228 An Induction 1230 An Intubation 1231 Anesthesia Ready 1251 Procedure Start 1311 Break/Relief In VAZQUEZDAVONTE BAL PARMJITIDT, HYDROGEN PLANT OPERATOR 1333 Break/Relief In VAZQUEZ Rodney BAL JOSE ANGEL, HYDROGEN PLANT OPERATOR 1404 Extubation/LMA Out Patient h emodynamically stable [...] 1157; median cubital vein (antecubital fossa), left; ejat-dym-ofygwe catheter system; 18 gauge; uri obrien; 07/21/18; [...] Smith MD - 07/21/2018 2:57 PM EDT [facility] Department of Anesthesiology Post-procedure Note Patient: Rolo Aguilar Procedure Summary Date Anesthesia Start Anesthesia Stop Room / Location 07/21/18 1220 1415 [facility] OR 26 / [facility] MAIN OR Procedure Diagnosis Surgeon Responsible Provider LAPAROSCOPIC CHOLECYSTECTOMY WITH CHOLANGIOGRAM (WRVU 11.47) (N/A Abdomen); LAPAROSCOPIC LIVER BIOPSY (WRVU 16.52) (N/A Abdomen) (BILIARY COLIC) Colt Hewitt MD Hartman, Gregg S, MD All Anesthesia Providers: Anesthesiologist: Anali Smith MD HYDROGEN PLANT OPERATOR: Kim Osorio CRNA Most Recent Vitals: 07/21/18 1430 BP: (!) 155/97 Pulse: Resp: 16 Temp: SpO2: 99% Pain 7 (07/21/18 1430) Patient Location: PACU/[facility] Level of Consciousness: Awake and Alert [...] 2.49) performed by Yusuf Tucker MD at [facility] ENDOSCOPY ??? PRO UPPER GI ENDOSCOPY, DIAGNOSTIC N/A 12/29/2017 EGD, UPPER GI ENDOSCOPY performed by Yusuf Tucker MD at [facility] ENDOSCOPY Social History Substance Use Topics ??? [...] consented to blood products. Plan discussed with HYDROGEN PLANT OPERATOR. PAT Staff Note documented in this encounter Plan of Treatment Upcoming Encounters Date Type Department Care Team (Late st Contact Info) Description 06/23/2024 10:00 AM EDT Office Visit Cardiology at [address] [address] Mo Horne MD [facility] [place] [address] 09/21/2024 10:[address] [place] [address] Rachel Carrasco MD [facility] [place] [address] 09/21/2024 11:00 AM EST Office [place] [phone] Rachel Carrasco MD [facility] [place] [address] documented as of this encounter Visit Diagnoses [...] g dexamethasone (DECADRON) injection PRN, Starting on Fri07/21/18 at 1228, Until Fri07/21/18 at 1415, Anesthesia Intra-op, Routine Given 07/21/2018 12:28 PM EDT 8 mg dexmedetomidine (PRECEDEX) injection PRN, Starting on Fri07/21/18 at 1231, Until Fri07/21/18 at 1415, Anesthesia Intra-op, Routine Given 07/21/2018 12:56 PM EDT 8 mcg Given 07/21/2018 12:31 PM EDT 12 mcg ePHEDrine 5 mg/mL multi-dose injection PRN, Starting on Fri07/21/18 at 1243, Until Fri07/21/18 at 1415, Anesthesia Intra-op, Routine Given 07/21/2018 1:37 PM EDT 5 mg Given 07/21/2018 12:43 PM EDT 5 mg fentaNYL 50 mcg/mL multi-dose injection PRN, Starting on Fri07/21/18 at 1228, Until Fri07/21/18 at 1415, Pain, Anesthesia Intra-op, Routine Given 07/21/2018 1:06 PM EDT 50 mcg Given 07/21/2018 12:28 PM EDT 50 mcg glycopyrrolate (ROBINUL) multi-dose injection PRN, Starting on Fri07/21/18 at 1353, [...] mg documented in this encounter Care Teams Protection Analyst Relationship Specialty Start Date End Date Bin Bowman MD [address] [place] [address] PCP - General General Internal Medicine 04/21/1707/11 documented as of this encounter
--- OUTSIDE RECORDS SUMMARY | 2024-06-17 22:23 | XMS_ITS | Encounter Summary ---
Author Organization [facility] Address [facility] [place] [address] Care Team Providers Care Tool Maintenance Worker Name Role Phone Bin Bowman MD Primary Care Provider [phone] Encounter Details Date Type Department Care Team (Late st Contact Info) Description 06/01/2020 Orders Only Cardiology at [address] [address] Fadi Escobar MD [facility] [place] [address] Heart palpitations Social History Tobacco Use Types [...] AM EDT Office Visit Cardiology at [address] [address] Mo Horne MD [facility] [place] [address] 09/21/2024 10:[address] [place] [address] Rachel Carrasco MD [facility] [place] [address] 09/21/2024 11:00 AM EST Office [place] [address] Rachel Carrasco MD [facility] [place] [address] Pending Results Name Type Priority Associated Diagnoses Date /Time Holter Monitor 48hr Cardiac Services Routine Heart palpitations 06/05/2020 10:44 AM EDT Scheduled Orders Name Type Priority Associated Diagnoses Orde r Schedule Holter Monitor 48hr Cardiac Services Routine Heart palpitations Expected: 06/01/2020 (Approximate), Expires: 06/01/2021 documented as of this encounter Visit Diagnoses Diagnosis Heart palpitations Palpitations documented in this encounter Care Teams Tool Maintenance Worker Relationship Specialty Start Date End Date Bin Bowman MD [address] [place] [address] PCP - General General Internal Medicine 04/21/1707/11 documented as of this encounter
--- OUTSIDE RECORDS SUMMARY | 2024-06-17 22:23 | XMS_ITS | Encounter Summary ---
Author Organization [facility] [place] [address] Care Team Providers Care Show Card Letterer Name Role Phone Bin Bowman MD Primary Care Provider [phone] Encounter Details Date Type Department Care Team (Late st Contact Info) Description 07/11/2020 Telephone Cardiology at [address] [address] Fady Lord RN Social History Tobacco Use [...] confirmed with Dr. Palomo Lyman' nurse at [facility] Cardiology. Pt medication list updated. documented in this encounter Plan of Treatment Upcoming Encounters Date Type Department Care Team (Late st Contact Info) Description 06/23/2024 10:00 AM EDT Office Visit Cardiology at [address] [place] [address] Mo Horne MD [facility] [place] [address] 09/21/2024 10:[address] [place] [address] Rachel Carrasco MD [facility] [place] [address] 09/21/2024 11:00 AM EST Office [place] [address] Rachel Carrasco MD [facility] [place] [address] documented as of this encounter Visit Diagnoses Not on filedocumented in this encounter Care Teams Show Card Letterer Relationship Specialty Start Date End Date Bin Bowman MD [address] [place] [address] PCP - General General Internal Medicine 04/21/1707/11 documented as of this encounter
--- OUTSIDE RECORDS SUMMARY | 2024-06-17 22:23 | XMS_ITS | Encounter Summary ---
Author Organization [facility] [place] [address] Care Team Providers Care Kitchen Lead Name Role Phone Bin Bowman MD Primary Care Provider [phone] Reason for Visit * Reason Comments Medication Refill Encounter Details Date Type Department Care Team (Late st Contact Info) Description 07/03/2018 [place] [address] Hawk Coker DO [facility] HEMATOLOGY/[place] [address] Social History Tobacco Use Types Packs/Day Years [...] AM EDT Office Visit Cardiology at [address] [address] Mo Horne MD [facility] [place] [address] 09/21/2024 10:[address] [place] [place] [address] Rachel Carrasco MD [facility] [place] [address] 09/21/2024 11:00 AM EST [place] [address] Rachel Carrasco MD [facility] [place] [address] documented as of this encounter Visit Diagnoses Not on filedocumented in this encounter Care Teams Kitchen Lead Relationship Specialty Start Date End Date Bin Bowman MD [address] [address] PCP - General General Internal Medicine 04/21/1707/11 documented as of this encounter
--- OUTSIDE RECORDS SUMMARY | 2024-06-17 22:23 | XMS_ITS | Encounter Summary ---
Author Organization [facility] [place] [address] Care Team Providers Care Clinical Safety Manager Name Role Phone Bin Bowman MD Primary Care Provider Reason for Visit * Reason Onset Date Comments Medication Refill 05/26/2020 Encounter Details Date Type Department Care Team (Late st Contact Info) Description 05/26/2020 Refill Cardiology at [address] [address] Jeremie Patton MD [facility] [place] [address] Medication Refill Social History Tobacco Use Types [...] AM EDT Office Visit Cardiology at [address] [address] Mo Horne MD [facility] [place] [address] 09/21/2024 10:[address] [place] [place] [address] Rachel Carrasco MD [facility] [place] [address] 09/21/2024 11:00 AM EST [place] [address] Rachel Carrasco MD [facility] [place] [address] documented as of this encounter Visit Diagnoses Diagnosis Coronary disease Essential hypertension Unspecified essential hypertension Heart palpitations Palpitations documented in this encounter Care Teams Clinical Safety Manager Relationship Specialty Start Date End Date Bin Bowman MD [address] [address] PCP - General General Internal Medicine 04/21/1707/11 documented as of this encounter
--- OUTSIDE RECORDS SUMMARY | 2024-06-17 22:23 | XMS_ITS | Encounter Summary ---
Author Organization [facility] Address [facility] [place] [address] Care Team Providers Care Kraft Digester Operator Name Role Phone Bin Bowman MD Primary Care Provider [phone] Encounter Details Date Type Department Care Team (Late st Contact Info) Description 06/27/2018 Telephone Cardiology at [address] [address] Joss De Anda MD [facility] [place] [address] Social History Tobacco Use Types Packs/Day Years [...] time: 1230h Referring Provider: Bubba Patient Location: [facility] Presenting Symptoms per OSH: Palpitations, fluttering [...] AM EDT Office Visit Cardiology at [address] [place] [address] Mo Horne MD [facility] [address] 09/21/2024 10:[address] [place] [address] Rachel Carrasco MD [facility] [place] [address] 09/21/2024 11:00 AM EST Office [place] [address] Rachel Carrasco MD [facility] [place] [address] documented as of this encounter Visit Diagnoses Not on filedocumented in this encounter Care Teams Kraft Digester Operator Relationship Specialty Start Date End Date Bin Bowman MD [address] [place] [address] PCP - General General Internal Medicine 04/21/1707/11 documented as of this encounter
--- OUTSIDE RECORDS SUMMARY | 2024-06-17 22:23 | XMS_ITS | Encounter Summary ---
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 Culver to assist with replacing the [...] someone do it at his office in [place]? documented in this encounter Plan of Treatment Upcoming Encounters Date Type Department Care Team (Late st Contact Info) Description 06/23/2024 10:00 AM EDT Office Visit Cardiology at [address] [place] [address] Mo Horne MD [facility] [place] [address] 09/21/2024 10:[address] [place] [place] [address] Rachel Carrasco MD [facility] [place] [address] 09/21/2024 11:00 AM EST [place] [address] Rachel Carrasco MD [facility] [place] [address] documented as of this encounter Visit Diagnoses Not on filedocumented in this encounter Care Teams Propulsion Generator Repairer Relationship Specialty Start Date End Date Bin Bowman MD [address] [place] [address] PCP - General General Internal Medicine 04/21/1707/11 documented as of this encounter
--- OUTSIDE RECORDS SUMMARY | 2024-06-17 22:23 | XMS_ITS | Encounter Summary ---
Author Organization [facility] Address [facility] [place] [address] Care Team Providers Care Strings Teacher Name Role Phone Bin Bowman MD Primary Care Provider Encounter Details Date Type Department Care Team (Late st Contact Info) Description 06/22/2020 Orders Only Cardiology at [address] [address] Fadi Escobar MD [facility] [place] [address] Heart palpitations Social History Tobacco Use Types [...] AM EDT Office Visit Cardiology at [address] [address] Mo Horne MD [facility] [place] [address] 09/21/2024 10:[address] [place] [place] [address] Rachel Carrasco MD [facility] [place] [address] 09/21/2024 11:00 AM EST [place] [address] Rachel Carrasco MD [facility] [place] [address] documented as of this encounter Visit Diagnoses Diagnosis Heart palpitations Palpitations documented in this encounter Care Teams Strings Teacher Relationship Specialty Start Date End Date Bin Bowman MD [address] [place] [address] PCP - General General Internal Medicine 04/21/1707/11 documented as of this encounter
--- OUTSIDE RECORDS SUMMARY | 2024-06-17 22:23 | XMS_ITS | Encounter Summary ---
Author Organization [facility] [place] [address] Care Team Providers Care Roofing Contractor Name Role Phone Bin Bowman MD Primary Care Provider Encounter Details Date Type Department Care Team (Late st Contact Info) Description 05/19/2020 Telephone Cardiology at [address] [phone] Lennie Garcia, RN Social History Tobacco Use [...] pt regarding Zio & insurance coverage Has [place] Medicaid but notified pt [employer] offers pt assistance program. Pt contacted [employer] who notified that Zio would be no cost to him. Spoke w/ [facility] Billing dept who reports that 's billing portion may be roughly $400 out of pocket. Pt & will be calling [place] medicaid & the billing department next week to determine how they would like to move forward. Dr. Escobar OK'd 48 Hr Holter monitor if they choose to not move forward with Zio documented in this encounter Plan of Treatment Upcoming Encounters Date Type Department Care Team (Late st Contact Info) Description 06/23/2024 10:00 AM EDT Office Visit Cardiology at [address] [place] [address] Mo Horne MD [facility] [place] [address] 09/21/2024 10:[address] [place] [place] [address] Rachel Carrasco MD [facility] [place] [address] 09/21/2024 11:00 AM EST [place] [address] Rachel Carrasco MD [facility] [place] [address] documented as of this encounter Visit Diagnoses Not on filedocumented in this encounter Care Teams Roofing Contractor Relationship Specialty Start Date End Date Bin Bowman MD [address] [place] [address] PCP - General General Internal Medicine 04/21/1707/11 documented as of this encounter
--- OUTSIDE RECORDS SUMMARY | 2024-06-17 22:23 | XMS_ITS | Encounter Summary ---
Author Organization [facility] Address [facility] [place] [address] Care Team Providers Care Extractor Tender Raw Stock Name Role Phone Bin Bowman MD Primary Care Provider Reason for Visit * Auth/Cert Specialty Diagnoses / Procedures Referred By Zeyad mishra Referred To Contact Diagnoses BILIARY COLIC Procedures PRO LAP, CHOLECYSTECTOMY/GRAPH PRO UNLISTED LAPAROSCOPIC PX LVR LAPAROSCOPIC CHOLECYSTECTOMY WITH CHOLANGIOGRAM (WRVU 11.47) LAPAROSCOPIC LIVER BIOPSY (WRVU 16.52) Referral ID Status Reason Start Date Expiration Date Visits Re quested Visits Authorized [id number] 1 1 Encounter Details Date Type Department Care Team (Latest Contact Info) Description 07/21/2018 11:16 AM EDT - 07/21/2018 4:12 PM EDT Hospital Encounter [place] [address] Colt Hewitt MD [facility] [place] [address] Discharge Disposition: Home Social History Tobacco Use [...] have any questions or concerns, please call [phone] before 5pm Friday through Friday; or [phone] after 5pm and on weekends. Diet: regular [...] 11:40 AM Colt Hewitt MD [facility] documented in this encounter Medications at [...] 2.49) performed by Yusuf Tucker MD at [facility] ENDOSCOPY ??? PRO UPPER GI ENDOSCOPY, DIAGNOSTIC N/A 12/29/2017 EGD, UPPER GI ENDOSCOPY performed by Yusuf Tucker MD at [facility] END[facility] SH: Non smoker Objective: Most Recent [...] Hewitt MD - 07/21/2018 4:12 PM EDT [facility] Operative Note Patient Name: Rolo Aguilar : [id number] MR#: [id number] Case Date: 07/21/2018 Surgeon: Surgeon(s) and Role: * Colt Hewitt MD - Primary * Guerline Traore MD - Resident-Almond Cutting Machine Tender * Jesse Pollack MD - Fellow Preoperative [...] AM EDT Office Visit Cardiology at [address] [address] Mo Horne MD [facility] [place] [address] 09/21/2024 10:[address] [place] [phone] Rachel Carrasco MD [facility] [place] [address] 09/21/2024 11:00 AM EST [place] [phone] Rachel Carrasco MD [facility] [place] [place] [address] documented as of this encounter Procedures Procedure [...] PM EDT 07/21/2018 2:20 PM EDT Narrative [facility] - 07/21/2018 2:20 PM EDT Specimen requisition ordered. ??Separate Pathology report to follow Resulting Agency Comment Spec In Lab Colt Hewitt MD PATHOLOGY/CYTOLOGY ORDERABLES Performing Organization Address City/State/[facility] Co de Phone Number [facility] [place] [address] * Surgical Pathology Report (07/21/2018 1:39 PM EDT) Final Diagnosis [id number] ? Location: [facility]; A The signing pathologist has (i) examined [...] Durbin MD Verified: ??07/24/2018 ?Pathologist Performed at: ??-[facility] Dept. of Pathology, [place], [place] CLINICAL INFORMATION Specimen Submitted: A - [...] black. Sections/Processin g: Cystic duct margin and mortician supplies sales representative gallbladder body sections submitted. (R1) ??rm 07/24/2018 4:34 PM EDT [facility] GALLBLADDER STRUCTURE / Unknown 07/21/2018 1:39 PM EDT 07/21/2018 1:39 PM EDT GALLBLADDER STRUCTURE / Unknown 07/21/2018 1:39 PM EDT 07/21/2018 1:39 PM EDT Colt Hewitt MD PATHOLOGY/CYTOLOGY ORDERABLES [facility] [place] [place] [address] * Specimen to Pathology (07/21/2018 1:39 PM EDT) AP Specimen 07/21/2018 1:39 PM EDT 07/21/2018 2:20 PM EDT Narrative [facility] - 07/21/2018 2:20 PM EDT Specimen requisition ordered. ??Separate Pathology report to follow Resulting Agency Comment Spec In Lab Colt Hewitt MD PATHOLOGY/CYTOLOGY ORDERABLES Performing Organization Address [facility]/ZIP Co de Phone Number [facility] [place] [address] * XR Fluoro No Rad <1Hr - OR Use (07/21/2018 1:30 PM EDT) Narrative RAD - 07/21/2018 1:42 PM EDT This order does not need a radiologist interpretation. ?? Colt Hewitt MD IMG FLUORO ORDERABL ES Performing Organization Address [facility] Co de Phone Number [place], [place] documented in this encounter Visit Diagnoses [...] Vieira RN)1448 (Given - Provider: Cintia Vieira, RN)1456 (Given - Provider: Cintia Vieira, FLAVIA) iohexol (OMNIPAQUE) 300 mg/mL solution (CANCELED) ONCE PRN, Starting on Fri07/21/18 at 1320, Until Fri07/21/18 at 1819, Intra-Operative (Intra-Procedure), Routine 1320 (Given - Provid er: Colt Hewitt MD) ondansetron (ZOFRAN-ODT) oral disintegrating tablet 4 mg 4 mg, Oral, EVERY 8 HOURS PRN, Starting on Fri07/21/18 at 1429, Until Fri07/21/18 at 1819, Nausea, Routine documented in this encounter Care Teams Extractor Tender Raw Stock Relationship Specialty Start Date End Date Bin Bowman MD [address] [place] [id number] PCP - General General Internal Medicine 04/21/1707/11 documented as of this encounter
--- OUTSIDE RECORDS SUMMARY | 2024-06-17 22:23 | XMS_ITS | Encounter Summary ---
Author Organization [facility] Address [facility] [place] [address] Care Team Providers Care Package Checker Name Role Phone Bin Bowman MD Primary Care Provider Encounter Details Date Type Department Care Team (Late st Contact Info) Description 07/29/2019 9:00 AM EDT Office Visit Cardiology at [address] [address] Jeremie Patton MD [facility] [place] [address] Coronary disease Social History Tobacco Use Types [...] original note were not included. CARDIOVASCULAR MEDICINE [place] [address] Subjective Identification Rolo Aguilar is a 48 y.o. patient of Bin Bowman MD with the following cardiovascular issues: 1. Coronary disease--- STEMI in Jul 2017 with PCI of OM1. Other vessels ok. EF 60%. Previously followed by Dr. Montes at [facility]. Frequent ER visits initially post [place]. Last nuc stress test at [facility] in March 2019 showing scar 2. Palpitations--- investigations showing PVCs. 3. Hypertension 4. Hyperlipidemia Comorbidities include hx of cholelithiasis, GERD, elevated BMI, depression, bipolar illness. Lives in [place], [place]. 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 Present Illness Last contact with [facility] cardiology was phone call in Jun 2018 with slight troponin elevation. He is here to establish care. He recently saw Dr. Patel at [facility] and they did not click. He formerly has been followed by Dr. Montes who has retired from [facility]. We reviewed his past medical history which is documented above. Most recently, he was in the emergency room at [facility] in June with palpitations. They [...] He hada nuclear stress test done at [facility] in which apparently showed no concerning abnormalities [...] Abdomen: Nondistended. Soft. Nontender. Extremities: No edema RESIDENTIAL CARPENTER: Normal mentation. Psych: Appropriate affect. Labs Lab [...] Will request nuc stress test result from [facility]. 2. Palpitations: Improved with increased dose of metoprolol. Follow up 1 year. Jeremie Patton MD [facility] Lexiscan report received from [facility] from March. Showed large fixed inferolateral defect. No ischemia. EF 50%. cc: Bin Bowman MD [address] / [place] [address] documented in this encounter Plan of Treatment Upcoming Encounters Date Type Department Care Team (Late st Contact Info) Description 06/23/2024 10:00 AM EDT Office Visit Cardiology at [address] [place] [address] Mo Horne MD [facility] [place] [address] 09/21/2024 10:[address] Scan [place] [facility] [phone] Rachel Carrasco MD [facility] [place] [address] 09/21/2024 11:00 AM EST Office [place] [address] Rachel Carrasco MD [facility] [address] documented as of this encounter Visit Diagnoses Diagnosis Coronary disease documented in this encounter Care Teams Package Checker Relationship Specialty Start Date End Date Bin Bowman MD [address] [place] [address] PCP - General General Internal Medicine 04/21/1707/11 documented as of this encounter
--- OUTSIDE RECORDS SUMMARY | 2024-06-17 22:23 | XMS_ITS | Encounter Summary ---
Author Organization [facility] Address [facility] [place] [address] Care Team Providers Care Non Licensed Nuclear Plant Operator Name Role Phone Bin Bowman MD Primary Care Provider [phone] Reason for Visit * Auth/Cert Specialty Diagnoses / Procedures Referred By Zeyad mishra Referred To Contact Diagnoses . Procedures ELECTROPHYSIOLOGY PROCEDURE Referral ID Status Reason Start Date Expiration Date Visits Re quested Visits Authorized [id number] 1 1 Encounter Details Date Type Department Care Team (Latest Contact Info) Description 07/10/2020 7:22 AM EDT - 07/11/2020 11:35 AM EDT Hospital Encounter Intermediate [place] [address] Fadi Escobar MD [facility] [place] [address] SVT (supraventricular tachycardia); Coronary disease; Essential hypertension; [...] Rolo Aguilar Patient Age: 49 y.o. Language: Romanian Race: White Ethnicity: Not nor Admit date: 07/10/2020 Discharge date and time: 07/11/2020 Attending Physician: Fadi Escobar MD Discharge Physician: Fadi Escobar MD Follow-up Recommendations for Providers: - s/p CTI ablation (atrial flutter ablation) - follow-up with EP in ~3 months Inpatient Provider Contact Information: Cardiac Electrophysiology - Weekends and holidays call [phone]; ask for liability claims representative director semiconductor. Discharge Diagnoses (Hospital Problems) and Secondary Diagnoses [...] of any new medications initiated at the [facility]. The patient should be aware [...] his/her physician or the Cardiac Electrophysiology Service ([phone]). Cardiac Electrophysiology Attending This patient was reviewed with Mr. Kahn and Dr. De Anda. I discussed procedural results and findings with Mr. Aguilar, and recommended follow up in ~3 months (sooner prn) after he wears a Zio monitor and results are available. If insurance in [place] fails to cover the cost of the [...] of any new medications initiated at the [facility]. The patient should be aware [...] his/her physician or the Cardiac Electrophysiology Service ([phone]). documented in this encounter Medications at Time [...] contact EP with any further questions (pager [phone]). SONNY Grover 07/11/2020 Pager: [phone] * Justa Rider, FLAVIA - 07/10/2020 10:29 [...] Interval History and Physical Exam: Planned Procedure [facility] CARDIAC ELECTROPHYSIOLOGY LABORATORIES HISTORY OF PRESENT ILLNESS: Rolo Aguilar is a 49 y.o. male with multiple symptomatic dysrhythmias recently. April 27 to the Emergency Department in [facility] with an episode of supraventricular tachycardia (SVT) [...] (WRVU 11.47) performed by Colt Hewitt MD [facility] MAIN OR ??? PRO UNLISTED LAPAROSCOPIC PX LVR N/A 07/21/2018 LAPAROSCOPIC LIVER BIOPSY (WRVU 16.52) performed by Colt Hewitt MD at [facility] MAIN OR ??? PRO UPPER GI ENDOSCOPY, BIOPSY N/A 12/29/2017 UPPER GASTROINTESTINAL ENDOSCOPY,WITH BIOPSY SINGLE OR MULTIPLE (WRVU 2.49) performed by Yusuf Tucker MD at [facility] ENDOSCOPY ??? PRO UPPER GI ENDOSCOPY, DIAGNOSTIC N/A 12/29/2017 EGD, UPPER GI ENDOSCOPY performed by Yusuf Tucker MD at [facility] ENDOSCOPY Accessory Clinical Findings: Laboratory Data: [...] service for dysrythmnia. He is insured through [place] Medicaid with prescription coverage. Per discussion with [...] AM EDT Office Visit Cardiology at [address] [address] Mo Horne MD [facility] [place] [address] 09/21/2024 10:[address] [place] [place] [phone] Rachel Carrasco MD [facility] [place] [address] 09/21/2024 11:00 AM EST [place] [phone] Rachel Carrasco MD [facility] [place] [address] Scheduled Orders Name Type Priority Associated Diagnoses [...] (Bezet) 426 ms MUSE SYSTEM Calculated P [place] 27 degrees MUSE SYSTEM Calculated R [place] 29 degrees MUSE SYSTEM Calculated T [place] 18 degrees MUSE SYSTEM INTERPRETATION Normal sinus rhythm Normal ECG When compared with ECG of 16-JUL-2017 06:45, T wave inversion less evident in Inferior leads Nonspecific T wave abnormality no longer evident in Lateral leads I personally reviewed the tracing and edited the fellows interpretation Confirmed by fellow Humza Wilson ([id number]) on 07/10/2020 11:25:10 AM Confirmed by MD Cheng, Jose ([id number]) on 07/10/2020 2:19:23 PM MUSE SYSTEM 07/10/2020 8:14 AM EDT 07/10/2020 2:19 PM EDT Fadi Escobar MD ECG ORDERABLES MUSE SYSTEM * Differential, Automated (07/10/2020 7:38 AM EDT) Neutrophil % 57.6 % [facility] Neutrophil Absolute 5.69 1.70 - 6.10 x10(3)/[facility] Lymph % 31.6 % [facility] Lymphocytes Abs 3.1 0.9 - 3.2 x10(3)/[facility] Monocyte % 7.6 % [facility] Monocyte Abs 0.8 0.3 - 0.9 x10(3)/[facility] Eos % 2.2 % [facility] Eosinophils Abs 0.2 0.0 - 0.4 x10(3)/[facility]ORATORY Basophil % 0.6 % [facility] Baso Absolute 0.1 0.0 - 0.1 x10(3)/[facility] LABORATORY Immature Gran % 0.40 % [facility] Comment: Immature granulocytes(IG's)percentage and absolute count will include metamyelocytes, myelocytes, and promyelocytes. Blood smears from CBCs yielding IG's will be scanned manually for concordance. If this scan disagrees with the automated IG or if promyelocytes are noted, a manual differential will be performed. Immature Gran Absolute 0.04 0.00 - 0.04 x10(3)/[facility] LABORATORY Blood specimen (specimen) 07/10/2020 7:38 AM EDT 07/10/2020 7:55 AM EDT Narrative Resulting Agency Comment Spec In Lab Fadi Escobar MD HEMATOLOGY ORDERABLE S Performing Organization Address City/State/[facility] [[email or web address]] Co de Phone Number [facility] [place] [address] * (ABNORMAL) Hemogram (07/10/2020 7:38 AM EDT) White Blood Cell 9.9(H) 4.0 - 9.5 x10(3)/[facility] LABORATORY Red Blood Cell 5.29 4.58 - 5.54 x10(6)/[facility]ORY Hemoglobin 15.6 13.7 - 16.5 gm/dL [facility] Hematocrit 47.3 40.5 - 48.5 % [facility] Mean Cell Volume 89.4 82.9 - 93.1 fL [facility] Mean Cell Hemoglobin 29.5 27.5 - 32.1 pg [facility] Mean Cell Hemoglobin Concentration 33.0 32.0 - 35.7 gm/dL [facility] Platelet 208 145 - 357 x10(3)/mc L [facility] RDW Standard Deviation 41.3 36.0 - 45.0 [facility]ORY RDW coefficient of variation 12.5 11.4 - 13.8 % [facility] Mean Platelet Volume 10.7 7.6 - 12.9 [facility]ATORY NRBC% auto 0.0 % [facility] NRBC Absolute 0.000 0.000 - 0.000 x10(3)/mc L [facility] Blood specimen (specimen) 07/10/2020 7:38 AM EDT 07/10/2020 7:55 AM EDT Narrative Resulting Agency Comment Spec In Lab Fadi Escobar MD HEMATOLOGY ORDERABLE S Performing Organization Address City/State/[facility] [[email or web address]] Co de Phone Number [facility] [place] [address] * (ABNORMAL) BMP w/fasting Glucose (07/10/2020 7:38 AM EDT) Glucose Fasting 113(H) 65 - 99 mg/dL [facility] Comment: ?Fasting* Glucose Interpretive Criteria [...] of Diabetes Mellitus, Position Statement from the [place] [employer]. ??Diabetes Care, Volume 33, Supplement 1, Nov 2009 Blood Urea Nitrogen 13 10 - 20 mg/dL [facility] Creatinine 1.05 0.80 - 1.50 mg/dL [facility] Sodium 140 135 - 145 mmol/L [facility] Potassium 4.7 3.5 - 5.0 mmol/L [facility] Comment: Please note: ??Patients with WBC >100,000 may have falsely elevated Potassium levels. ??For accurate Potassium quantification in these patients send serum separator tube (gold top) for subsequent determinations. ??Contact the Clinical Chemistry Laboratory if there are any questions. Chloride 100 98 - 107 mmol/L [facility] Carbon Dioxide 32(H) 22 - 31 mmol/L [facility] Anion Gap 8 5 - 15 mmol/L [facility] Calcium 10.0 8.5 - 10.5 mg/dL [facility] Est Glomerular Filtration Rate 82 >=60 mL/min/1. 73 m?? [facility] Comment: The eGFR was calculated using the CKD-EPI equation. As with all creatinine based estimates of kidney function, eGFR values calculated with the CKD-EPI equation are not accurate in patients with acute kidney failure, extremes of body mass or the acutely ill. http://[employer]/[facility] eGFR 95 >=60 mL/min/1. 73 m?? [facility] Comment: The eGFR was calculated using the CKD-EPI equation. As with all creatinine based estimates of kidney function, eGFR values calculated with the CKD-EPI equation are not accurate in patients with acute kidney failure, extremes of body mass or the acutely ill. http://[employer]/[facility]nkf Blood specimen (specimen) 07/10/2020 7:38 AM EDT 07/10/2020 7:56 AM EDT Narrative Resulting Agency Comment Spec In Lab Fadi Escobar MD CHEMISTRY ORDERABLES [facility] [place] [address] * (ABNORMAL) Prothrombin Time (07/10/2020 7:38 AM EDT) Prothrombin Time 14.0(H) 9.4 - 12.5 sec [facility] International Normalization Ratio 1.2 [facility] Comment: An INR <2.0 [...] MD HEMATOLOGY ORDERABLE S Performing Organization Address [facility] [[email or web address]] Co de Phone Number [facility] [place] [address] documented in this encounter Visit Diagnoses Diagnosis [...] Rider RN) 0900 (Given - Provider: Kati Edmonds, FLAVIA) aspirin EC tablet 81 mg 81 [...] 2100, Until Discontinued, Recovery (Recovery-Hospital Unit), Routine 214 (Given - Provider: Justa Rider RN) 0900 (Canceled Entry - Provider: Kati Edmonds RN - Reason: Contraindicated) Continuous Medication Order 07/09/2020 07/10/2020 07/11/2020 lactated ringers infusion (CANCELED) 1,000 mL, at 100 mL/hr, Intravenous, CONTINUOUS, Starting on Fri07/10/20 at 0815, Until Fri07/10/20 at 1821, Day of Surgery (Day of Procedure) 0823 (New Bag - Provider: iKnga Hathaway RN) lactated ringers infusion (CANCELED) 1,000 [...] Dobson, FLAVIA)1709 (Given - Provider: Autumn Dobson, RN)1735 (Given - Provider: Autumn Dobson RN) [...] Routine documented in this encounter Care Teams Non Licensed Nuclear Plant Operator Relationship Specialty Start Date End Date Bin Bowman MD [address] [place] [address] PCP - General General Internal Medicine 04/21/1707/11 documented as of this encounter
--- OUTSIDE RECORDS SUMMARY | 2024-06-17 22:23 | XMS_ITS | Encounter Summary ---
Author Organization [facility] [place] [address] Care Team Providers Care Carbon Cleaner Name Role Phone Bin Bowman MD Primary Care Provider [phone] Reason for Visit * Reason Onset Date Comments Questions 07/14/2020 Encounter Details Date Type Department Care Team (Late st Contact Info) Description 07/14/2020 Telephone Cardiology at [address] [phone] Fady Lord RN Questions Social History Tobacco [...] AM EDT Office Visit Cardiology at [address] [place] [address] Mo Horne MD [facility] [address] 09/21/2024 10:[address] [place] [place] [phone] Rachel Carrasco MD [facility] [place] [address] 09/21/2024 11:00 AM EST [place] [phone] Rachel Carrasco MD [facility] [place] [address] documented as of this encounter Visit Diagnoses Not on filedocumented in this encounter Care Teams Carbon Cleaner Relationship Specialty Start Date End Date Bin Bowman MD [address] [place] [address] PCP - General General Internal Medicine 04/21/1707/11 documented as of this encounter
--- OUTSIDE RECORDS SUMMARY | 2024-06-17 22:23 | XMS_ITS | Encounter Summary ---
Author Organization [facility] [place] [address] Care Team Providers Care Barbering Instructor Name Role Phone Bin Bowman MD Primary Care Provider [phone] Reason for Visit * Reason Comments Medication Refill Encounter Details Date Type Department Care Team (Late st Contact Info) Description 08/03/2018 Refill [place] [address] Breonna Ambrocio, SCHOOL CHILDCARE ATTENDANT [address] [place] [address] Gastroesophageal reflux disease, esophagitis presence not specified [...] AM EDT Office Visit Cardiology at [address] [phone] Mo Horne MD [facility] [place] [address] 09/21/2024 10:[address] [place] [address] Rachel Carrasco MD [facility] [address] 09/21/2024 11:00 AM EST Office [place] [phone] Rachel Carrasco MD [facility] [address] documented as of this encounter Visit Diagnoses Diagnosis Gastroesophageal reflux disease, esophagitis presence not specified documented in this encounter Care Teams Barbering Instructor Relationship Specialty Start Date End Date Bin Bowman MD [address] [address] PCP - General General Internal Medicine 04/21/1707/11 documented as of this encounter
--- OUTSIDE RECORDS SUMMARY | 2024-06-17 22:23 | XMS_ITS | Encounter Summary ---
Author Organization [facility] [place] [address] Care Team Providers Care Supervisor Shipfitters Name Role Phone Bin Bowman MD Primary Care Provider [phone] Encounter Details Date Type Department Care Team (Late st Contact Info) Description 07/22/2018 Telephone [place] [phone] Rachana Wild, RN Social History Tobacco Use [...] AM EDT Office Visit Cardiology at [address] [address] Mo Horne MD [facility] [place] [address] 09/21/2024 10:[address] [place] [place] [address] Rachel Carrasco MD [facility] [place] [address] 09/21/2024 11:00 AM EST [place] [address] Rachel Carrasco MD [facility] [place] [address] documented as of this encounter Visit Diagnoses Not on filedocumented in this encounter Care Teams Supervisor Shipfitters Relationship Specialty Start Date End Date Bin Bowman MD [address] [place] [address] PCP - General General Internal Medicine 04/21/1707/11 documented as of this encounter
--- OUTSIDE RECORDS SUMMARY | 2024-06-17 22:23 | XMS_ITS | Encounter Summary ---
Author Organization [facility] [place] [address] Care Team Providers Care Painter And Decorator Name Role Phone Bin Bowman MD Primary Care Provider [phone] Encounter Details Date Type Department Care Team (Late st Contact Info) Description 05/07/2020 Telephone Cardiology at [address] [address] Paul Asher [facility] [place] [address] Social History Tobacco Use Types Packs/Day Years [...] or consultation Requesting physician: Dr. Coello Location: [facility] Indication for transfer request: AF [...] of an tiarrythmic plan. Paul Asher DO Aerospace Project Manager, PGY-4 05/07/2020 documented in this encounter Plan of Treatment Upcoming Encounters Date Type Department Care Team (Late st Contact Info) Description 06/23/2024 10:00 AM EDT Office Visit Cardiology at [address] [place] [address] Mo Horne MD [facility] [address] 09/21/2024 10:[address] [place] [place] [address] Rachel Carrasco MD [facility] [place] [address] 09/21/2024 11:00 AM EST [place] [address] Rachel Carrasco MD [facility] [place] [address] documented as of this encounter Visit Diagnoses Not on filedocumented in this encounter Care Teams Painter And Decorator Relationship Specialty Start Date End Date Bin Bowman MD [address] [place] [address] PCP - General General Internal Medicine 04/21/1707/11 documented as of this encounter
--- OUTSIDE RECORDS SUMMARY | 2024-06-17 22:23 | XMS_ITS | Encounter Summary ---
Author Organization [facility] Address [facility] [place] [address] Care Team Providers Care Stenographer Print Shop Name Role Phone Bin Bowman MD Primary Care Provider Encounter Details Date Type Department Care Team (Late st Contact Info) Description 03/25/2019 4:00 PM EDT Office [place] [address] Breonna Ambrocio, DIVISION MERCHANDISE MANAGER [address] [place] [address] Bloating; Lower abdominal pain; Gastroesophageal reflux disease, [...] 2. Stool studies at your convenience. Please picking machine operator helper the supplies from [employer] and send me a message when you [...] Ambrocio APRN - 03/25/2019 4:00 PM EDT Concrete Wall Grinder Operator: Breonna Ambrocio APRN PCP: Bin Bowman [...] gas. No blood or mucus in stool. Fentress type #4-5. Denies abdominal cramping and fecal urgency. Denies constipation. Anxiety has improved since starting mindfulness mediation classes. No longer taking geodon. Has changed his diet since his [place] last year. Eating much healthier and fewer [...] Was using carafate for a little while. [place] this helped. Had an EGD in September 2016. Was told everything is normal, although patient states he feels he would like another EGD done by a under ground miner and not a general surgeon. Denies dysphagia, odynophagia, globus. Denies regurgitation, nausea, vomiting. Decreased appetite. Early satiety. Post-prandial bloating frequently. Denies chronic NSAID use. No anemia. Abdominal pain related to heartburn and bloating. Denies diarrhea and constipation. No cramping or urgency. No blood or mucus in stool. No anal or rectal pain. Will get chills in the order caller or late at night. 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 [...] provided 3. KUB to be done at [facility] 4. Once I get the stool study results, I will treat you with antibiotics 5. I will send a message with further recommendations pending results of testing. Patient agrees with the above plan. I did my best to answer their questions. Signed, Breonna Ambrocio APRN 03/26/19 8:01 AM Section of Gastroenterology & Hepatology [facility] ?? documented in this encounter Plan of Treatment Upcoming Encounters Date Type Department Care Team (Late st Contact Info) Description 06/23/2024 10:00 AM EDT Office Visit Cardiology at [address] [address] [facility] [address] 09/21/2024 10:[address] [place] [place] [address] [facility] [address] 09/21/2024 11:00 AM EST [place] [address] [facility] [place] [address] documented as of this encounter Visit Diagnoses Diagnosis Bloating Flatulence, eructation, and gas pain Lower abdominal pain Abdominal pain, other specified site Gastroesophageal reflux disease, esophagitis presence not specified documented in this encounter Care Teams Stenographer Print Shop Relationship Specialty Start Date End Date Bin Bowman MD [address] [place] [address] PCP - General General Internal Medicine 04/21/1707/11 documented as of this encounter
--- OUTSIDE RECORDS SUMMARY | 2024-06-17 22:24 | XMS_ITS | Encounter Summary ---
Author Organization [facility] [place] [address] Care Team Providers Care Optical Glass Inspector Name Role Phone Bin Bowman MD Primary Care Provider [phone] Reason for Visit * Surgical (Routine) - Specialty Diagnoses / Procedures Referred By Zeyad mishra Referred To Contact Gastroenterology Diagnoses Gastroesophageal reflux disease, esophagitis presence not specified GERD Procedures Farmer Capsule pH Test Farmer Breonna Ambrocio, MATTRESS FILLING MACHINE TENDER [address] [place] [address] [facility] [address] [place] [address] Referral ID Status Reason Start Date Expiration Date V isits Requested Visits Authorized [id number] Consult, Test & Treat 10/07/2017 10/07/2018 1 1 Encounter Details Date Type Department Care Team (Latest Contact Info) Description 12/29/2017 10:00 AM EST Procedure [place] [address] Gastroesophageal reflux disease, esophagitis presence not specified [...] of Farmer procedure and use of the nub card tender. documented in this encounter Plan of Treatment Upcoming Encounters Date Type Department Care Team (Late st Contact Info) Description 06/23/2024 10:00 AM EDT Office Visit Cardiology at [address] [address] Mo Horne MD [facility] [place] [address] 09/21/2024 10:[address] [place] [place] [address] Rachel Carrasco MD [facility] [place] [address] 09/21/2024 11:00 AM EST [place] [address] Rachel Carrasco MD [facility] [place] [address] Scheduled Orders Name Type Priority Associated Diagnoses Orde r Schedule Farmer Capsule pH Test Procedures Routine Gastroesophageal reflux disease, esophagitis presence not specified Ordered: 10/07/2017 documented as of this encounter Visit Diagnoses Diagnosis Gastroesophageal reflux disease, esophagitis presence not specified documented in this encounter Care Teams Optical Glass Inspector Relationship Specialty Start Date End Date Bin Bowman MD [address] [place] [address] PCP - General General Internal Medicine 04/21/1707/11 documented as of this encounter
--- OUTSIDE RECORDS SUMMARY | 2024-06-17 22:24 | XMS_ITS | Encounter Summary ---
Author Organization [facility] Address [facility] [place] [address] Care Team Providers Care Asphalt Roller Person Name Role Phone Bin Bowman MD Primary Care Provider Encounter Details Date Type Department Care Team (Late st Contact Info) Description 07/18/2017 [place] [address] Nargis Santillan MD [facility] [place] [address] Social History Tobacco Use Types Packs/Day Years [...] Referring Provider: Dr. Merry Osuna Patient Location: [facility] ED Presenting Symptoms per OSH: Fire [...] AM EDT Office Visit Cardiology at [address] [place] [phone] Mo Horne MD [facility] [place] [address] 09/21/2024 10:[address] [place] [address] Rachel Carrasco MD [facility] [place] [address] 09/21/2024 11:00 AM EST Office [place] [address] Rachel Carrasco MD [facility] [place] [address] documented as of this encounter Visit Diagnoses Not on filedocumented in this encounter Care Teams Asphalt Roller Person Relationship Specialty Start Date End Date Bin Bowman MD [address] [place] [address] PCP - General General Internal Medicine 04/21/1707/11 documented as of this encounter
--- OUTSIDE RECORDS SUMMARY | 2024-06-17 22:24 | XMS_ITS | Encounter Summary ---
Author Organization [facility] [place] [address] Care Team Providers Care Beet Topper Name Role Phone Bin Bowman MD Primary Care Provider Reason for Visit * Reason Comments Medication Refill Encounter Details Date Type Department Care Team (Late st Contact Info) Description 11/01/2017 Ref[place] [address] Hawk Coker DO [facility] HEMATOLOGY/[place] [address] Social History Tobacco Use Types Packs/Day Years [...] AM EDT Office Visit Cardiology at [address] [address] Mo Horne MD [facility] [place] [address] 09/21/2024 10:[address] [place] [place] [address] Rachel Carrasco MD [facility] [place] [address] 09/21/2024 11:00 AM EST [place] [address] Rachel Carrasco MD [facility] [place] [address] documented as of this encounter Visit Diagnoses Not on filedocumented in this encounter Care Teams Beet Topper Relationship Specialty Start Date End Date Bin Bowman MD [address] [address] PCP - General General Internal Medicine 04/21/1707/11 documented as of this encounter
--- OUTSIDE RECORDS SUMMARY | 2024-06-17 22:24 | XMS_ITS | Encounter Summary ---
Author Organization [facility] [place] [address] Care Team Providers Care Demand Generation Manager Name Role Phone Bin Bowman MD Primary Care Provider Reason for Visit * Reason Comments Medication Refill Encounter Details Date Type Department Care Team (Late st Contact Info) Description 12/02/2017 [place] [address] Hawk Coker DO [facility] HEMATOLOGY/[place] [address] Social History Tobacco Use Types Packs/Day Years [...] AM EDT Office Visit Cardiology at [address] [address] Mo Horne MD [facility] [place] [address] 09/21/2024 10:[address] [place] [place] [address] Rachel Carrasco MD [facility] [place] [address] 09/21/2024 11:00 AM EST [place] [address] Rachel Carrasco MD [facility] [place] [address] documented as of this encounter Visit Diagnoses Not on filedocumented in this encounter Care Teams Demand Generation Manager Relationship Specialty Start Date End Date Bin Bowman MD [address] [address] PCP - General General Internal Medicine 04/21/1707/11 documented as of this encounter
--- OUTSIDE RECORDS SUMMARY | 2024-06-17 22:24 | XMS_ITS | Encounter Summary ---
Author Organization [facility] [place] [address] Care Team Providers Care Well Point Pumping Supervisor Name Role Phone Bin Bowman MD Primary Care Provider [phone] Encounter Details Date Type Department Care Team (Late st Contact Info) Description 12/04/2017 Telephone [place] [address] Dimple Wolf, RN Social History Tobacco Use [...] 10:04 AM EST Leslie calls from the [facility] pharmacy in [place], [place] stating, patient asked me to call the office. He was seen in the ED and prescribed Esomeprazole, which is not covered by his [place] Medicaid. Returned call to above caller to [...] AM EDT Office Visit Cardiology at [address] [place] [address] Mo Honre MD [facility] [place] [address] 09/21/2024 10:[address] [place] [address] Rachel Carrasco MD [facility] [address] 09/21/2024 11:00 AM EST Office [place] [address] Rachel Carrasco MD [facility] [place] [address] documented as of this encounter Visit Diagnoses Not on filedocumented in this encounter Care Teams Well Point Pumping Supervisor Relationship Specialty Start Date End Date Bin Bowman MD [address] [place] [address] PCP - General General Internal Medicine 04/21/1707/11 documented as of this encounter
--- OUTSIDE RECORDS SUMMARY | 2024-06-17 22:24 | XMS_ITS | Encounter Summary ---
Author Organization [facility] Address [facility] [place] [address] Care Team Providers Care Analytics Intern Name Role Phone Bin Bowman MD Primary Care Provider [phone] Encounter Details Date Type Department Care Team (Late st Contact Info) Description 12/29/2017 10:00 AM EST - 12/29/2017 10:30 AM EST [place] [address] Yusuf Tucker MD [facility] [place] [address] EGD, UPPER GI ENDOSCOPY (WRVU 2.09) Social [...] Other Instructions Be sure to carry your lump receiver within 3 feet at all times . [...] better as expected. Friday-Friday Same Day Endo [phone] Otherwise contact [phone] and ask to speak to the regulatory compliance specialist linux consultant Denise Wolf RN [phone] if any problems with lump receiver Follow-up care is a garcia part of [...] the day after the test, use an xwlz-hpx-vddekle spray to numb your throat. Follow-up care [...] more? Visit our health information library at [email or web address]. You can also view health information on [employer], your personal patient account. Log in or sign uptoday. Enter J454 in the search box to learn more about Upper GI Endoscopy: What to Expect at Home. Current as of: March 21, 2017 Content Version: 11.4 ?? [id number] [employer]. Care instructions adapted under license by [facility]. If you have questions about a medical condition or this instruction, always ask your healthcare professional. [employer] disclaims any warranty or liability for your [...] by: Yusuf Tucker MD Department of Gastroenterology [facility] 12/29/2017 documented in this encounter Plan of Treatment Upcoming Encounters Date Type Department Care Team (Late st Contact Info) Description 06/23/2024 10:00 AM EDT Office Visit Cardiology at [address] [address] Mo Horne MD [facility] [place] [address] 09/21/2024 10:[address] [place] [place] [address] Rachel Carrasco MD [facility] [place] [address] 09/21/2024 11:00 AM EST [place] [address] Rachel Carrasco MD [facility] [place] [address] documented as of this encounter Procedures Procedure [...] Surgical Pathology Report (12/29/2017 11:27 AM EST) Final Diagnosis [id number] ? Location: 4T; EA10; A The signing pathologist has (i) examined [...] Durbin MD Verified: ??01/01/2018 ?Pathologist Performed at: ??-[facility] [place], [place], [place] CLINICAL INFORMATION Specimen Submitted: A - [...] Sections/Proces sing: (T1) ??ejr 01/01/2018 2:42 PM [facility] GI Biopsy 12/29/2017 11:2 7 AM EST 12/29/2017 11:27 AM EST GI Biopsy 12/29/2017 11:2 7 AM EST 12/29/2017 11:27 AM EST GI Biopsy 12/29/2017 11:2 7 AM EST 12/29/2017 11:27 AM EST GI Biopsy 12/29/2017 11:2 7 AM EST 12/29/2017 11:27 AM EST Yusuf Tucker MD PATHOLOGY/CYTOLOGY O RDMARIBEL [facility] [place] [address] * Specimen to Pathology (12/29/2017 11:27 AM EST) AP Specimen 12/29/2017 11:2 7 AM EST 12/29/2017 1:17 PM EST Narrative [facility] - 12/29/2017 1:17 PM EST Specimen requisition ordered. ??Separate Pathology report to follow Resulting Agency Comment Spec In Lab Yusuf Tucker MD PATHOLOGY/CYTOLOGY O RDERABLES [facility] [place] [address] * Specimen to Pathology (12/29/2017 11:27 AM EST) AP Specimen 12/29/2017 11:2 7 AM EST 12/29/2017 1:17 PM EST Narrative [facility] - 12/29/2017 1:17 PM EST Specimen requisition ordered. ??Separate Pathology report to follow Resulting Agency Comment Spec In Lab Yusuf Tucker MD PATHOLOGY/[place] [address] * Specimen to Pathology (12/29/2017 11:27 AM EST) AP Specimen 12/29/2017 11:2 7 AM EST 12/29/2017 1:17 PM EST Narrative [facility] - 12/29/2017 1:17 PM EST Specimen requisition ordered. ??Separate Pathology report to follow Resulting Agency Comment Spec In Lab Yusuf Tucker MD PATHOLOGY/CYTOLOGY O [place] Performing Organization Address [facility] [place] [place] [address] * Specimen to Pathology (12/29/2017 11:27 AM EST) AP Specimen 12/29/2017 11:2 7 AM EST 12/29/2017 1:17 PM EST Narrative [facility] - 12/29/2017 1:17 PM EST Specimen requisition ordered. ??Separate Pathology report to follow Resulting Agency Comment Spec In Lab Yusuf Tucker MD PATHOLOGY/CYTOLOGY O [place] Performing Organization Address [facility] [place] [address] * UPPER GI ENDOSCOPY (12/29/2017 11:00 AM EST) UPPER GI ENDOSCOPY [facility] Endoscopy Procedure Date: 12/29/2017 11:00 AM ? Patient Name: Rolo Aguilar ? Date of : 1970 ? Age: 47 ? Order #: [id number] ? Instrument Name: [id number] ? Procedure: ? Upper GI endoscopy Indications: ? Heartburn, bloating Providers: ? Yusuf Tucker MD, Funmi Andre ? Miko Gibbons, Assistant Manager Trainee Referring MD: ?Bin Bowman MD Medicines: ? Monitored Anesthesia [...] personally performed the entire procedure. ? Dr. Yusuf Tucker Yusuf Tucker MD 12/29/2017 11:34:44 AM Number [...] CRNA) documented in this encounter Care Teams Analytics Intern Relationship Specialty Start Date End Date Bin Bowman MD [address] [place] [address] PCP - General General Internal Medicine 04/21/1707/11 documented as of this encounter
--- OUTSIDE RECORDS SUMMARY | 2024-06-17 22:24 | XMS_ITS | Encounter Summary ---
Author Organization [facility] Address [facility] [place] [address] Care Team Providers Care Student Assistance Counselor Name Role Phone Bin Bowman MD Primary Care Provider [phone] Encounter Details Date Type Department Care Team (Latest Contact Info) Description 02/16/2018 - 02/16/2018 11:59 PM EDT Hospital Encounter [place] [address] Colt Hewitt MD [facility] [place] [address] Discharge Disposition: Home Social History Tobacco Use [...] AM EDT Office Visit Cardiology at [address] [place] [address] Mo Horne MD [facility] [place] [address] 09/21/2024 10:[address] [place] [address] Rachel Carrasco MD [facility] [place] [address] 09/21/2024 11:00 AM EST Office [place] [address] Rachel Carrasco MD [facility] [place] [address] documented as of this encounter Procedures Procedure Name Priority Date/Time Associated Diagnosis Comments FILM LIBRARY STORAGE ONLY NUCLEAR MEDICINE Routine 02/16/2018 12:00 AM EDT documented in this encounter Results * Film Library- Storage Only nuclear medicine (02/16/2018 12:00 AM EDT) Narrative [facility] - 02/23/2018 2:58 PM EDT This exam is for storage only and is auto-finalizing. Colt Hewitt MD IMG FILM LIBRARY OR DERABLES [place], [place] documented in this encounter Visit Diagnoses Not on filedocumented in this encounter Care Teams Student Assistance Counselor Relationship Specialty Start Date End Date Bin Bowman MD [address] [place] [address] PCP - General General Internal Medicine 04/21/1707/11 documented as of this encounter
--- OUTSIDE RECORDS SUMMARY | 2024-06-17 22:24 | XMS_ITS | Encounter Summary ---
[facility] Address [facility] [place] [address] Care Team Providers Care It Associate Name Role Phone Bin Bowman MD Primary Care Provider [phone] Reason for Visit * Consultation (Routine) - Closed Specialty Diagnoses / Procedures Referred By Zeyad mishra Referred To Contact General Surgery Diagnoses Upper abdominal pain Breonna Ambrocio, VISCOSITY WORKER [address] [address] Colt Hewitt MD [facility] [place] [place] [address] Referral ID Status Reason Start Date Expiration Date V isits Requested Visits Authorized [id number] Closed Consult, Test & Treat 02/20/2018 02/20/2019 1 1 Encounter Details Date Type Department Care Team (Late st Contact Info) Description 03/18/2018 8:00 AM EDT Office [place] [address] Colt Hewitt MD [facility] [place] [address] Biliary colic Social History Tobacco Use Types [...] had a past history significant for a OK with cardiac stents and is currently on [...] has lost significant weight during this timeframe [id number] pounds. However he still remains morbidly obese with a BMI of 51. I spent 40 minutes with patient today along with his significant other entire time in rzfh-wy-hary conversation regarding pathophysiology of gallstones as well [...] inflammation. His is going to contact his link trainer mechanic and review timing of surgery to see [...] AM EDT Office Visit Cardiology at [address] [place] [address] Mo Horne MD [facility] [place] [address] 09/21/2024 10:[address] [place] [place] [address] Rachel Carrasco MD [facility] [place] [address] 09/21/2024 11:00 AM EST [place] [address] Rachel Carrasco MD [facility] [place] [address] documented as of this encounter Procedures Procedure Name Priority Date/Time Associated Diagnosis Comments AMB REFERRAL TO GENERAL SURGERY Routine 03/18/2018 9:00 AM EDT Upper abdominal pain documented in this encounter Visit Diagnoses Diagnosis Biliary colic Calculus of gallbladder without mention of cholecystitis or obstruction documented in this encounter Care Teams It Associate Relationship Specialty Start Date End Date Bin Bowman MD [address] [place] [address] PCP - General General Internal Medicine 04/21/1707/11 documented as of this encounter
--- OUTSIDE RECORDS SUMMARY | 2024-06-17 22:24 | XMS_ITS | Encounter Summary ---
Author Organization [facility] [place] [address] Care Team Providers Care Core Sucker Name Role Phone Bin Bowman MD Primary Care Provider Encounter Details Date Type Department Care Team (Late Contact Info) Description 02/05/2018 Orders Only [place] [address] Breonna Ambrocio, EMBEDDED SYSTEMS DEVELOPER [address] [place] [address] Gastroesophageal reflux disease, esophagitis presence not specified; [...] AM EDT Office Visit Cardiology at [address] [address] Mo Horne MD [facility] [place] [address] 09/21/2024 10:[address] [place] [address] Rachel Carrasco MD [facility] [place] [address] 09/21/2024 11:00 AM EST Office [place] [address] Rachel Carrasco MD [facility] [place] [address] documented as of this encounter Visit Diagnoses Diagnosis Gastroesophageal reflux disease, esophagitis presence not specified Epigastric pain Abdominal pain, epigastric documented in this encounter Care Teams Core Sucker Relationship Specialty Start Date End Date Bin Bowman MD [address] [address] PCP - General General Internal Medicine 04/21/1707/11 documented as of this encounter
--- OUTSIDE RECORDS SUMMARY | 2024-06-17 22:24 | XMS_ITS | Encounter Summary ---
[place] [address] Care Team Providers Care Funeral Director/Embalmer Name Role Phone Bin Bowman MD Primary Care Provider [phone] Reason for Referral * Consultation (Routine) - Closed Specialty Diagnoses / Procedures Referred By Zeyad mishra Referred To Contact Gastroenterology Diagnoses Elevated LFTs Breonna Ambrocio APRN [address] [place] [address] [facility] [address] [place] [phone] Referral ID Status Reason Start Date Expiration Date V isits Requested Visits Authorized [id number] Closed Consult, Test & Treat 10/07/2017 10/07/2018 1 1 * Surgical (Routine) - Specialty Diagnoses / Procedures Referred By Zeyad mishra Referred To Contact Gastroenterology Diagnoses Gastroesophageal reflux disease, esophagitis presence not specified GERD Procedures Farmer Capsule pH Test Farmer Breonna Ambrocio APRN [address] [place] [address] [facility] [address] [place] [id number] Referral ID Status Reason Start Date Expiration Date V isits Requested Visits Authorized [id number] Consult, Test & Treat 10/07/2017 10/07/2018 1 1 Reason for Visit * Reason Comments Follow-up Encounter Details Date Type Department Care Team (Late st Contact Info) Description 10/07/2017 10:00 AM EST Office Visit [place] [address] rBeonna Ambrocio, FACILITIES ENGINEERING MANAGER [address] [place] [address] Dysphagia, unspecified type; Gastroesophageal reflux disease, esophagitis [...] Ambrocio APRN - 10/07/2017 10:00 AM EST Underwriting Account Representative: Breonna Ambrocio APRN PCP: Bin Bowman MD [...] this 31 minute visit were spent in [id number] discussion and counseling the patientas detailed per [...] Was using carafate for a little while. Buda this helped. Had an EGD in September 2016. Was told everything is normal, although patient states he feels he would like another EGD done by a animal husbandry manager and not a general surgeon. Denies dysphagia, odynophagia, globus. Denies regurgitation, nausea, vomiting. Decreased appetite. Early satiety. Post-prandial bloating frequently. Denies chronic NSAID use. No anemia. Abdominal pain related to heartburn and bloating. Denies diarrhea and constipation. No cramping or urgency. No blood or mucus in stool. No anal or rectal pain. Will get chills in the book sewing machine operator or late at night. 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 Has [...] 10:53 AM Section of Gastroenterology & Hepatology [facility] ?? documented in this encounter Miscellaneous Notes * Addendum Note - Sindy Lester - 10/07/2017 11:21 AM ESTAddended by: SINDY LESTER on: 10/07/2017 11:21 AM Modules accepted: Orders documented in this encounter Plan of Treatment Upcoming Encounters Date Type Department Care Team (Late st Contact Info) Description 06/23/2024 10:00 AM EDT Office Visit Cardiology at [address] [address] Mo Horne MD [facility] [place] [address] 09/21/2024 10:[address] [place] [address] Rachel Carrasco MD [facility] [place] [address] 09/21/2024 11:00 AM EST Office [place] [address] Rachel Carrasco MD [facility] [place] [address] Scheduled Orders Name Type Priority Associated Diagnoses Orde r Schedule UPPER GI ENDOSCOPY Procedures Routine Dysphagia, unspecified type Gastroesophageal reflux disease, esophagitis presence not specified Bloating Diarrhea, unspecified type Ordered: 10/07/2017 Farmer Capsule pH Test Procedures Routine Gastroesophageal reflux disease, esophagitis presence not specified Ordered: 10/07/2017 Scheduled Referrals Name Type Priority Associated Diagnoses [...] * Differential, Automated (10/07/2017 11:27 AM EST) Neutrophil % 65.4 % [facility] Neutrophil Absolute 5.68 1.70 - 6.10 x10(3)/[facility] Lymph % 26.3 % [facility] Lymphocytes Abs 2.3 0.9 - 3.2 x10(3)/[facility] Monocyte % 6.3 % [facility] Monocyte Abs 0.6 0.3 - 0.9 x10(3)/[facility] Eos % 1.1 % [facility] Eosinophils Abs 0.1 0.0 - 0.4 x10(3)/[facility] Basophil % 0.6 % [facility] Baso Absolute 0.0 0.0 - 0.1 x10(3)/[facility] Immature Gran % 0.30 % [facility] Comment: Immature granulocytes(IG's)percentage and absolute count will include metamyelocytes, myelocytes, and promyelocytes. Blood smears from CBCs yielding IG's will be scanned manually for concordance. If this scan disagrees with the automated IG or if promyelocytes are noted, a manual differential will be performed. Immature Gran Absolute 0.03 0.00 - 0.04 x10(3)/[facility] Blood specimen (specimen) 10/07/2017 11:27 AM EST 10/07/2017 11:42 AM EST Narrative Resulting Agency Comment Spec In Lab Breonna Ambrocio FACILITIES ENGINEERING MANAGER HEMATOLOGY ORDER BELEN Performing Organization Address City/[facility]/ZIP Co de Phone Number [facility] [place] [address] * (ABNORMAL) Hemogram (10/07/2017 11:27 AM EST) [facility] White Blood Cell 8.7 4.0 - 9.5 x10(3)/mc L [facility] Red Blood Cell 5.38 4.58 - 5.54 x10(6)/mc L [facility] Hemoglobin 15.2 13.7 - 16.5 gm/dL [facility] Hematocrit 47.1 40.5 - 48.5 % [facility] Mean Cell Volume 87.5 82.9 - 93.1 fL [facility] Mean Cell Hemoglobin 28.3 27.5 - 32.1 pg [facility] Mean Cell Hemoglobin Concentration 32.3 32.0 - 35.7 gm/dL [facility] Platelet 217 145 - 357 x10(3)/mc L [facility] RDW Standard Deviation 45.0 36.0 - 45.0 [facility] RDW coefficient of variation 14.1(H) 11.4 - 13.8 % [facility] Mean Platelet Volume 10.3 7.6 - 12.9 fL [facility] NRBC% auto 0.0 % [facility] NRBC Absolute 0.000 0.000 - 0.000 x10(3)/ L [facility] Blood specimen (specimen) 10/07/2017 11:27 AM EST 10/07/2017 11:42 AM EST Narrative Resulting Agency Comment Spec In Lab Breonna Ambrocio FACILITIES ENGINEERING MANAGER HEMATOLOGY ORDER BELEN [facility] [place] [address] * IgA (10/07/2017 11:27 AM EST) Pathologist [facility] IgA 264 70 - 400 mg/dL [facility] Blood specimen (specimen) 10/07/2017 11:27 AM EST 10/07/2017 11:41 AM EST Narrative Resulting Agency Comment Spec In Lab Breonna Ambrocio FACILITIES ENGINEERING MANAGER CHEMISTRY ORDERA BLES Performing Organization Address [facility]/ZIP Co de Phone Number [facility] [place] [address] * Tissue transglutaminase, IgA (10/07/2017 11:27 AM EST) TTG IgA Ab 0.4 0.1 - 10.0 u/ml [facility] Comment: Negative = <7 U/mL Equivocal = 7-10 U/mL Positive = >10 U/mL Blood specimen (specimen) 10/07/2017 11:27 AM EST 10/08/2017 9:01 AM EST Narrative Resulting Agency Comment Spec In Lab Breonna Liarturolance FACILITIES ENGINEERING MANAGER IMMUNOLOGY ORDER BELEN Performing Organization Address [facility] Co de Phone Number [facility] [place] [address] * Lipase (10/07/2017 11:27 AM EST) Pathologist [facility] Lipase 28 0 - 60 unit/L [facility] Blood specimen (specimen) 10/07/2017 11:27 AM EST 10/07/2017 11:41 AM EST Narrative Resulting Agency Comment Spec In Lab Breonna Ambrocio FACILITIES ENGINEERING MANAGER CHEMISTRY ORDERA BLES Performing Organization Address [facility]/ZIP Co de Phone Number [facility] [address] documented in this encounter Visit Diagnoses Diagnosis Dysphagia, unspecified type Gastroesophageal reflux disease, esophagitis presence not specified Bloating Flatulence, eructation, and gas pain Diarrhea, unspecified type Elevated LFTs Other abnormal blood chemistry documented in this encounter Care Teams Funeral Director/Embalmer Relationship Specialty Start Date End Date Bin Bowman MD [address] [address] PCP - General General Internal Medicine 04/21/1707/11 documented as of this encounter
--- OUTSIDE RECORDS SUMMARY | 2024-06-17 22:24 | XMS_ITS | Encounter Summary ---
Author Organization [facility] Address [facility] [place] [address] Care Team Providers Care Cut Roll Machine Operator Name Role Phone Bin Bowman MD Primary Care Provider [phone] Encounter Details Date Type Department Care Team (Latest Contact Info) Description 12/29/2017 8:49 AM EST - 12/29/2017 12:32 PM EST Hospital [place] [address] Yusuf Tucker MD [facility] [place] [address] Discharge Disposition: Home Social History Tobacco Use [...] Other Instructions Be sure to carry your delivery table feeder within 3 feet at all times . [...] better as expected. Friday-Friday Same Day Endo [phone] Otherwise contact [phone] and ask to speak to the neck pinner arch cushion skiving machine operator Denise Wolf RN [phone] if any problems with delivery table feeder Follow-up care is a garcia part of [...] the day after the test, use an herz-okv-tlsolrf spray to numb your throat. Follow-up care [...] more? Visit our health information library at [email or web address]. You can also view health information on [employer], your personal patient account. Log in or sign uptoday. Enter J454 in the search box to learn more about Upper GI Endoscopy: What to Expect at Home. Current as of: March 21, 2017 Content Version: 11.4 ?? [id number] [employer]. Care instructions adapted under license by [facility]. If you have questions about a medical condition or this instruction, always ask your healthcare professional. [employer] disclaims any warranty or liability for your [...] by: Yusuf Tucker MD Department of Gastroenterology [facility] 12/29/2017 documented in this encounter Plan of Treatment Upcoming Encounters Date Type Department Care Team (Late st Contact Info) Description 06/23/2024 10:00 AM EDT Office Visit Cardiology at [address] [address] Mo Horne MD [facility] [place] [address] 09/21/2024 10:[address] [place] [place] [address] Rachel Carrasco MD [facility] [place] [place] [address] 09/21/2024 11:00 AM EST [place] [address] Rachel Carrasco MD [facility] [place] [address] documented as of this encounter Procedures Procedure [...] Report (12/29/2017 11:27 AM EST) Final Diagnosis [id number] ? Location: 4T; EA10; A The signing [...] Durbin MD Verified: ??01/01/2018 ?Pathologist Performed at: ??-[facility] Dept. of Pathology, [place], [place] CLINICAL INFORMATION Specimen Submitted: A - [...] Sections/Proces sing: (T1) ??ejr 01/01/2018 2:42 PM [facility] GI Biopsy 12/29/2017 11:2 7 AM EST 12/29/2017 11:27 AM EST GI Biopsy 12/29/2017 11:2 7 AM EST 12/29/2017 11:27 AM EST GI Biopsy 12/29/2017 11:2 7 AM EST 12/29/2017 11:27 AM EST GI Biopsy 12/29/2017 11:2 7 AM EST 12/29/2017 11:27 AM EST Yusuf Tucker MD PATHOLOGY/CYTOLOGY [place] [facility] [place] [address] * Specimen to Pathology (12/29/2017 11:27 AM EST) AP Specimen 12/29/2017 11:2 7 AM EST 12/29/2017 1:17 PM EST Narrative [facility] - 12/29/2017 1:17 PM EST Specimen requisition ordered. ??Separate Pathology report to follow Resulting Agency Comment Spec In Lab Yusuf Tucker MD PATHOLOGY/CYTOLOGY [place] [facility] [place] [address] * Specimen to Pathology (12/29/2017 11:27 AM EST) AP Specimen 12/29/2017 11:2 7 AM EST 12/29/2017 1:17 PM EST Narrative [facility] - 12/29/2017 1:17 PM EST Specimen requisition ordered. ??Separate Pathology report to follow Resulting Agency Comment Spec In Lab Yusuf Tucker MD PATHOLOGY/[place] [address] * Specimen to Pathology (12/29/2017 11:27 AM EST) AP Specimen 12/29/2017 11:2 7 AM EST 12/29/2017 1:17 PM EST Narrative [facility] - 12/29/2017 1:17 PM EST Specimen requisition ordered. ??Separate Pathology report to follow Resulting Agency Comment Spec In Lab Yusuf Tucker MD PATHOLOGY/CYTOLOGY O [place] Performing Organization Address [facility] [place] [address] * Specimen to Pathology (12/29/2017 11:27 AM EST) AP Specimen 12/29/2017 11:2 7 AM EST 12/29/2017 1:17 PM EST Narrative [facility] - 12/29/2017 1:17 PM EST Specimen requisition ordered. ??Separate Pathology report to follow Resulting Agency Comment Spec In Lab Yusuf Tucker MD PATHOLOGY/CYTOLOGY O [place] Performing Organization Address [facility] [place] [address] * UPPER GI ENDOSCOPY (12/29/2017 11:00 AM EST) UPPER GI ENDOSCOPY [facility] Endoscopy Procedure Date: 12/29/2017 11:00 AM ? Patient Name: Rolo Aguilar ? Date of : 1970 ? Age: 47 ? Order #: [id number] ? Instrument Name: [id number] ? Procedure: ? Upper GI endoscopy Indications: ? Heartburn, bloating Providers: ? Yusuf Tucker MD, Funmi Andre ? Miko Gibbons, Scientist Referring MD: ?Bin Bowman MD Medicines: ? [...] CRNA) documented in this encounter Care Teams Cut Roll Machine Operator Relationship Specialty Start Date End Date Bin Bowman MD [address] [place] [address] PCP - General General Internal Medicine 04/21/1707/11 documented as of this encounter
--- OUTSIDE RECORDS SUMMARY | 2024-06-17 22:24 | XMS_ITS | Encounter Summary ---
Author Organization [facility] [place] [address] Care Team Providers Care Funeral Greeter Name Role Phone Bin Bowman MD Primary Care Provider [phone] Encounter Details Date Type Department Care Team (Late st Contact Info) Description 12/29/2017 11:11 AM EST Anesthesia [place] [address] Nicole Hardin [facility] [place] [address] Anesthesia Record Procedure Summary Procedure Name Responsible [...] Hardin DO - 12/29/2017 5:17 PM EST [facility] [place] Department of Anesthesiology Post-procedure Note Patient: Rolo Aguilar Procedure Summary Date Anesthesia Start Anesthesia Stop Room / Location 12/29/[address] [facility] ENDO 4 / [facility] ENDOSCOPY Procedure Diagnosis Surgeon Responsible Provider EGD, UPPER GI ENDOSCOPY (N/A Trunk); UPPER GASTROINTESTINAL ENDOSCOPY,WITH BIOPSY SINGLE OR MULTIPLE (WRVU 2.49) (N/A ) Bloating; Gastroesophageal reflux disease, esophagitis presence not specified; Dysphagia, unspecified type; Diarrhea, unspecified type (?GERD, PUD, ?Gastritis, stricture; OJEDA placement; (consult)) Yusuf Tucker MD Joshi, [place], DO All Anesthesia Providers: Anesthesiologist: Nicole Hardin DO MUSEUM GUIDE: Annabella Lorenzo CRNA Most Recent Vitals: 12/29/17 [...] week) and has lost 70 lbs since [place]. No further symptoms of chest pressure since [place]. Follow up Echo in 11/2017- resolved WMA according to patient. Patient nervous because he woke up during last EGD. Rarely snores since losing weight. denies that him holding his breath during sleep. NPO confirmed Region - Other Informed Consent: Anesthetic plan and risks discussed with patient and spouse. Plan discussed with MUSEUM GUIDE and attending. PAT Staff Note documented in this encounter Plan of Treatment Upcoming Encounters Date Type Department Care Team (Late st Contact Info) Description 06/23/2024 10:00 AM EDT Office Visit Cardiology at [address] [address] Mo Horne MD [facility] [place] [address] 09/21/2024 10:[address] [place] [place] [address] Rachel Carrasco MD [facility] [place] [address] 09/21/2024 11:00 AM EST [place] [address] Rachel Carrasco MD [facility] [place] [address] documented as of this encounter Visit Diagnoses [...] mL/hr documented in this encounter Care Teams Funeral Greeter Relationship Specialty Start Date End Date Bin Bowman MD [address] [place] [address] PCP - General General Internal Medicine 04/21/1707/11 documented as of this encounter
--- OUTSIDE RECORDS SUMMARY | 2024-06-17 22:24 | XMS_ITS | Encounter Summary ---
Author Organization [facility] [place] [address] Care Team Providers Care Commercial Crabber Name Role Phone Severo Bowman MD Primary Care Provider Reason for Referral * Consultation (Routine) - Specialty Diagnoses / Procedures Referred By Zeyad mishra Referred To Contact Cardiac Rehabilitation Diagnoses ST elevation myocardial infarction (STEMI), unspecified artery Ky Amato MD [facility] [address] Cardiac Rehab, [facility] [address] [address] Referral ID Status Reason Start Date Expiration Date V isits Requested Visits Authorized [id number] Consult, Test & Treat 07/16/2017 01/12/2018 36 36 Reason for Visit * Auth/Cert Specialty Diagnoses / Procedures Referred By Zeyad mishra Referred To Contact Diagnoses STEMI (ST elevation myocardial infarction) STEMI STEMI Procedures CARDIAC CATHETERIZATION Referral ID Status Reason Start Date Expiration Date Visits Re quested Visits Authorized [id number] 1 1 Encounter Details Date Type Department Care Team (Latest Contact Info) Description 07/13/2017 12:24 PM EDT - 07/16/2017 11:51 AM EDT Hospital Encounter Inter[place] [address] Ky Amato MD [facility] [place] [address] Neftali White MD [facility] [place] [address] ST elevation myocardial infarction (STEMI), unspecified artery [...] Rolo Aguilar Patient Age: 46 y.o. Language: Lithuanian Race: White Ethnicity: Not nor Admit date: 07/13/2017 Discharge date and time: 07/16/2017 Attending Physician: Ky Amato MD Discharge Physician: Hawk Coker DO (Resident) ID: Mr. Aguilar is a 46yo w/ pMHx Of HTN, HLD, GERD, morbid obesity, depression, bipolar, who presents as transfer from [facility] for chest pain and inferior STEMI. [...] medications as appropriate - Cardiac rehab in [facility] Discharge Diagnoses (Hospital Problems) and Secondary [...] depression, bipolar, who presents as transfer from [facility] for chest pain and inferior STEMI. [...] called the ambulance, who transported him to [facility], where he was loaded plavix, started on heparin gtt, and tNK was already loaded with ASA at home). He also received 1L of NS for BP in the 90/50s. It took an 1 to 1.[address] [facility]. ?? 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 ?? Patient denies recent illnesses, diarrhea, constipation, coughs, sick contacts Hospital Course: Rolo Aguilar was admitted to the Medicine Service on 07/13/2017 in stable condition. The following issues were addressed during this admission and he was discharged on 07/16/2017 ACS On admission to [facility], the patient was taken emergently to the cook house laborer. Prior to discharge he had aCXR showing mild pulmonary edema. This was from acute diastolic heart failure. His cath showed one vessel coronary artery disease of the LCX, he received EMMY to his proximal OM1 lesion. On transfer to the [facility], the patient was chest pain free [...] was initially held in the setting ofacute [place]. This was discussed at length with the [...] ventricular segmental wall motion abnormalities present at [facility] inferolateral wall, as coded in the [...] appointments: During 8am-5pm Friday through Friday call [phone] to speak with a nurse in the cardiology clinic All other times call [phone] and ask to speak to the saturator metal control worker. Activity level: - No heavy lifting (more [...] 3:00 PM [facility] 4T [facility] 09/19/2017 9:30 AM Breonna Ambrocio APRN [facility] Cardiology Follow-up: Dr. Montes -- August 01, 1:30PM PCP Follow-up: JONATAN Hay -- July 28, 11:00AM -- [phone] Your Inpatient Doctor(s) at [facility]: Ky Amato MD - Attending physician Hawk Coker DO - Resident physician Maryuri Sanchez MD - Revolving Field Assembler physician Your Primary Care Provider: Severo Bowman MD [address] / [place] [address] For questions regarding issues relating to your hospitalization on the Hospital Medicine Service, please contact your inpatient physician through the [facility] Salesforce Administrator [phone]. Issues after hours and on weekends will be handled by the Hospitalist staff on-call. General Instructions None Future Appointments and Orders Future Appointments Provider Department Dept Phone 09/10/2017 3:00 PM [facility] G[facility]ology at [place] [phone] 09/19/2017 9:30 AM Breonna Ambrocio APRN [facility]enterology at [place] [phone] Future Orders Complete By Expires Referral to Cardiac Rehab [[id number] Custom] As directed Process Instructions: If no progress note charted, please enter Clinical details in comments. Scheduling Instructions: Questions: My question or request is: STEMI. Cardiac rehab at [facility] Provider Contact Information: Severo Bowman MD [address] / [place] [address] Discharge References/Attachments: Discharge References/Attachments None documented in [...] appointments: During 8am-5pm Friday through Friday call [phone] to speak with a nurse in the cardiology clinic All other times call [phone] and ask to speak to the saturator metal control worker. Activity level: - No heavy lifting (more [...] 9:30 AM Breonna Ambrocio APRN Leb [facility] Cardiology Follow-up: Dr. Montes -- August 01, 1:30PM PCP Follow-up: JONATAN Hay -- July 28, 11:00AM -- [phone] Your Inpatient Doctor(s) at [facility]: Ky Amato MD - Attending physician Hawk Coker DO - Resident physician Maryuri Sanchez MD - Revolving Field Assembler physician Your Primary Care Provider: Severo Bowman MD [address] / [place] [address] For questions regarding issues relating to your hospitalization on the Hospital Medicine Service, please contact your inpatient physician through the [facility] Salesforce Administrator [phone]. Issues after hours and on weekends will [...] by cardiac rehab. Twyla Chaudhary, PT Pager [phone] * Ky Amato MD - 07/15/2017 6:26 [...] an inferoposterior ST elevation myocardial infarction to [facility]. He was treated with thrombolytic [...] OM1 and hemodynamically stable. Received tNK at [facility] prior to transfer. Hemodynamically stable so [...] MD PGY1 Internal Medicine Cardiology S1 Pager [phone] Attending Addendum: The patient was seen and examined in conjunction with the resident on rounds. My history, physical exam findings, assessment, and plan are reflected in that note. Lab and relevant imaging data was reviewed and the plan was communicated with the patient and available family. Doing well and approaching d/c. Advance GDT for CAD meds. Ky Amato MD, [facility] Attending Sheet Rock Nailer Pager [phone] * Veena Marx - 07/13/2017 7:15 PM [...] PCP: Severo Bowman MD PCP phone #: [phone] ID/Chief Complaint: 46yo male History of Present Illness: Mr. Aguilar is a 46yo w/ pMHx Of HTN, HLD, GERD, morbid obesity, depression, bipolar, who presents as transfer from [facility] for chest pain and inferior STEMI. [...] called the ambulance, who transported him to [facility], where he was loaded plavix, started on heparin gtt, and tNK was already loaded with ASA at home). He also received 1L of NS for BP in the 90/50s. It took an 1 to 1.[address] [facility]. In cook house laborer, LM was normal, RCA was normal, LAD [...] use Living Situation: Lives with mother in [place], [place]. Sees Dr. Bowman ([facility]), Sindhu Diana ([facility]). In good relationship with . 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 Invalid input(s): [id number] Heme: No results for input(s): LDH, HAPTOGLOBIN, [...] OM1 and hemodynamically stable. Received tNK at [facility] prior to transfer. #Inferior STEMI s/p [...] MD PGY1 Internal Medicine Cardiology S1 Pager [phone] Attending Addendum: The patient was seen and [...] an inferoposterior ST elevation myocardial infarction to [facility]. He was treated with thrombolytic drugs and transferred for immediate catheterization. In the Director Of Rotc, radial access was difficult due to a [...] 3 day hospital course. 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 He quit smoking 3 years ago. Recently, he made changes in his diet and began walking 3 miles every day. He has lost 40 lbs and is motivated to continueto lose weight and exercise. Reviewed home exercise program with him. He is very interested in participating in cardiac rehab. Participation to an outpatient cardiac rehabilitation program at [facility] was discussed. Patient agrees to a [...] spouse and MIL, single family home, 4 [address] w/rails, lives in basement [address] [facility] [address] Social & Family Supports/Community Resources: Autumn Extended Emergency Contact Information Primary Emergency Contact: Autumn Aguilar Address: [address] [place] [address] [facility] Mobile Relation: Spouse Secondary Emergency Contact: Whitney Piedra Address: [address] [place] [address] [facility] Relation: Sibling Behavioral Health History: History depression, anxiety, and bipolar Substance Use/Abuse: Quit smoking 3 years ago, rare alcohol use, denies illicit drug use Other Pertinent/Service Specific Information: None Health/Prescription Coverage: Payor: [place] / Plan: [place] PRIMARY CARE PLUS / Product Type: *No Product type* / Secondary Insurance: None Prescription Coverage: see above Preferred Pharmacy: [id number] - [place], [place] - [address] [facility] [address] Other: None Primary Care Provider: Severo Bowman MD [phone] Patient/Caregiver Goals of Treatment: Safe dc plan [...] planning. NEGRITA Smith, MS, BSN, RN, Pager [phone] Office of Care Management * Plan of [...] OUTCOME EVALUATION NOTE: OUTCOME SUMMARY: Transferred from [facility], A&Ox4, denies pain or SOB. Right [...] Office Visit Cardiology at [address] [id number] Mo Horne MD [facility] [place] [address] 09/21/2024 10:[address] Scan at [place] [id number] Rachel Carrasco MD [facility] [place] [address] 09/21/2024 11:00 AM EST [place] [address] Rachel Carrasco MD [facility] [place] [address] Scheduled Referrals Name Type Priority Associated Diagnoses [...] 07/16/2017 5:16 AM EDT BASIC METABOLIC PANEL Routine 07/16/2017 5:16 AM EDT ECHO COMPLETE [...] 07/15/2017 4:37 AM EDT BASIC METABOLIC PANEL Routine 07/15/2017 4:37 AM EDT EKG 12-LEAD Routine 07/14/2017 8:[address] elevation myocardial infarction (STEMI), unspecified artery POCT GLUCOSE Routine 07/14/2017 8:07 AM EDT HEMOGRAM Routine 07/14/2017 3:20 AM EDT DIFFERENTIAL, AUTOMATED Routine 07/14/20 17 3:20 AM EDT CARDIAC ENZYMES ([facility]) Routine 07/14/2017 3:20 AM EDT CBC (WITH DIFF) Routine 07/14/2017 3:20 AM EDT TSH Routine 07/14/2017 3:20 AM EDT MAGNESIUM Routine 07/14/2017 3:20 AM EDT HEMOGLOBIN A1C Routine 07/14/2017 3:20 AM EDT LIPID PANEL (REFLEX DIRECT LDL) Routine 07/14/2017 3:20 AM EDT BASIC METABOLIC PANEL Routine 07/14/2017 3:20 AM EDT MACHINE WASHER SCAN 07/14/2017 12:00 AM EDT CARDIAC ENZYMES ([facility]) Routine 07/13/2017 9:10 PM EDT XR CHEST ONE VIEW Routine 07/13/2017 7:5 5 PM EDT POCT GLUCOSE Routine 07/13/2017 7:30 PM EDT EKG 12-LEAD Routine 07/13/2017 3:[address] elevation myocardial infarction (STEMI), unspecified artery POCT GLUCOSE Routine 07/13/2017 3:01 PM EDT HEMOGRAM STAT 07/13/2017 3:00 PM EDT DIFFERENTIAL, AUTOMATED STAT 07/13/20 17 3:00 PM EDT CARDIAC ENZYMES ([facility]) STAT 07/13/2017 3:00 PM EDT APTT Routine 07/13/2017 3:00 PM EDT PROTHROMBIN TIME Routine 07/13/2017 3:00 PM EDT CBC (WITH DIFF) STAT 07/13/2017 3:00 PM EDT COMPREHENSIVE METABOLIC PANEL STAT 07/13/2017 3:00 PM EDT CARDIAC CATHETERIZATION Routine 07/13/20 17 2:[address] elevation myocardial infarction (STEMI), unspecified artery documented in this encounter Results * EKG 12 Lead (07/16/2017 6:45 AM EDT) [facility] Ventricular rate 72 BPM MUSE SYSTEM Atrial Rate 72 BPM MUSE SYSTEM P-R Interval 150 ms MUSE SYSTEM QRS Duration 96 ms MUSE SYSTEM Q-T Interval 374 ms MUSE SYSTEM QTC Calculated (Bezet) 409 ms MUSE SYSTEM Calculated P [place] 30 degrees MUSE SYSTEM Calculated R [place] 21 degrees MUSE SYSTEM Calculated T [place] 14 degrees MUSE SYSTEM INTERPRETATION Normal sinus rhythm 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 Lymphocytes Abs 2.5 0.9 - 3.2 x10(3)/[facility] LABORATORY Monocyte % 7.7 % [facility] Monocyte Abs 0.7 0.3 - 0.9 x10(3)/[facility] LABORATORY Eos % 1.2 % [facility] Eosinophils Abs 0.1 0.0 - 0.4 x10(3)/[facility] LABORATORY Basophil % 0.5 % [facility] Baso Absolute 0.0 0.0 - 0.1 x10(3)/[facility] LABORATORY Immature Gran % 0.50 % [facility] Comment: Immature granulocytes(IG's)percentage and absolute count will include metamyelocytes, myelocytes, and promyelocytes. Blood smears from CBCs yielding IG's will be scanned manually for concordance. If this scan disagrees with the automated IG or if promyelocytes are noted, a manual differential will be performed. Immature Gran Absolute 0.04 0.00 - 0.04 x10(3)/[facility] LABORAT[facility] Blood specimen (specimen) 07/16/2017 5:16 AM EDT 07/16/2017 5:31 AM EDT Narrative Resulting Agency Comment Spec In Lab Ky Amato MD HEMATOLOGY ORDERABLE S [facility] [place] [address] * (ABNORMAL) Hemogram (07/16/2017 5:16 AM EDT) White Blood Cell 8.6 4.0 - 9.5 x10(3)/ L [facility] Red Blood Cell 3.94(L) 4.58 - 5.54 x10(6)/ L [facility] Hemoglobin 11.6(L) 13.7 - 16.5 gm/dL [facility] Hematocrit 34.5(L) 40.5 - 48.5 % [facility] Mean Cell Volume 87.6 82.9 - 93.1 fL [facility] Mean Cell Hemoglobin 29.4 27.5 - 32.1 pg [facility] Mean Cell Hemoglobin Concentration 33.6 32.0 - 35.7 gm/dL [facility] Platelet 128(L) 145 - 357 x10(3)/[facility] LABORATORY RDW Standard Deviation 43.5 36.0 - 45.0 [facility] LABORATORY RDW coefficient of variation 13.5 11.4 - 13.8 % [facility] Mean Platelet Volume 10.0 7.6 - 12.9 [facility] LABORATORY NRBC% auto 0.0 % [facility] NRBC Absolute 0.000 0.000 - 0.000 x10(3)/[facility] LABORATORY Blood specimen (specimen) 07/16/2017 5:16 AM EDT 07/16/2017 5:31 AM EDT Narrative Resulting Agency Comment Spec In Lab Ky Amato MD HEMATOLOGY ORDERABLE S [facility] [place] [address] * Magnesium (07/16/2017 5:16 AM EDT) Magnesium 0.82 0.69 - 1.07 mmol/L [facility] Blood specimen (specimen) 07/16/2017 5:16 AM EDT 07/16/2017 5:31 AM EDT Narrative Resulting Agency Comment Spec In Lab Ky Amato MD CHEMISTRY ORDERABLES [facility] [place] [address] * Basic Metabolic Panel (non-fasting) (07/16/2017 5:16 AM EDT) Glucose 107 65 - 199 mg/dL [facility] Comment:Diabetes: >=200 mg/d L plus symptoms Blood Urea Nitrogen 11 10 - 20 mg/dL [facility] Creatinine 1.05 0.80 - 1.50 mg/dL [facility] Comment: Please note that the pediatric reference intervals supplied above were not validated at [facility]. Results from pediatric patients should be interpreted in conjunction to the patient's age, height and muscle mass. Sodium 139 135 - 145 mmol/L [facility] Potassium 4.0 3.5 - 5.0 mmol/L [facility] Comment: Please note: ??Patients with WBC >100,000 may have falsely elevated Potassium levels. ??For accurate Potassium quantification in these patients send serum separator tube (gold top) for subsequent determinations. ??Contact the Clinical Chemistry Laboratory if there are any questions. Chloride 101 98 - 107 mmol/L [facility] Carbon Dioxide 26 22 - 31 mmol/L [facility] Anion Gap 12 5 - 15 mmol/L [facility] Calcium 9.0 8.5 - 10.5 mg/dL [facility] Est Glomerular Filtration Rate >60 >=60 [facility] Comment: This estimated GFR (eGFR) [...] the following links into your internet browser. [email or web address] Blood specimen (specimen) 07/16/2017 5:16 AM EDT 07/16/2017 5:31 AM EDT Narrative Resulting Agency Comment Spec In Lab Ky Amato MD CHEMISTRY ORDERABLES Performing Organization Address City/State/[facility] Co ct Phone Number [facility] [place] [address] * ECHO COMPLETE (07/15/2017 11:23 AM EDT) EF 60 HEARTLAB SYSTEM Anatomical Region Laterality Modality Other 07/15/2017 Narrative 07/15/2017 1:08 PM EDT Procedure: ?Transthoracic Echocardiogram Patient: ?JEFF SHERWOOD M ?(Age): 1970(46y) Med Rec#: ? [id number] ?Sex: ?M ? Site Loc: ? [facility] ?Ht / Wt: ??168(cm)/173(kg) Pt. Loc: ?Echo Lab ?BSA: ?2.64 Study Date: ?? 07/15/2017 ?Pt. Type: Inpatient Tape: ? Referring: SEVERO GREEN R Referring: Ky Amato Reading: Dao Perez ([id number]) Secondary Connector Armature: Gabriel Silva ALISHA Diagnosis: *ICD-10-PCS ST elevation (STEMI) myocardial infarction of unspecified site (I21.3) BP: ? 100/60 SUMMARY: 1. The left ventricular chamber size is normal. ??There is normal global left ventricular systolic function. ??The quantitative left ventricular ejection fraction by biplane Malik's method is 60%. ??There are left ventricular segmental wall motion abnormalities present at [facility] inferolateral wall, as coded in the [...] E-wave Vmax ?0.9 ?m/sec ? MV deceleration [id number] ?msec ? MV A-wave Vmax ?0.5 ?m/sec [...] ? Mid-Inferior ?Normal ? Mid-Inferoseptal ?Normal ? [place]-Septal ? Normal ? [place]-Anterior ? Normal ? [place]-Lateral ?Normal ? [place]-Inferior ? Normal ? [place]-Tip ?Normal ? This report has been electronically signed by: Dao Perez MD ? 07/15/2017 13:08:41 Images reviewed and interpretation verified [facility] Cardiac Ultrasound Laboratory Procedure Note Dao Perez MD - 07/15/2017 Procedure: Transthoracic Echocardiogram Patient: JEFF Rodney (Age): 1970(46y) Med Rec#: [id number] Sex: M Site Loc: [facility] Ht / Wt: 168(cm)/173(kg) Pt. Loc: Echo Lab BSA: 2.64 Study Date: 07/15/2017 Pt. Type: Inpatient Tape: Referring: SEVERO GREEN R Referring: Ky Amato Reading: Dao Perez ([id number]) Secondary Connector Armature: Gabriel Silva [facility] Diagnosis: *ICD-10-PCS ST elevation (STEMI) myocardial infarction of unspecified site (I21.3) BP: 100/60 SUMMARY: 1. The left ventricular chamber size is normal. There is normal global left ventricular systolic function. The quantitative left ventricular ejection fraction by biplane Malik's method is 60%. There are left ventricular segmental wall motion abnormalities present at [facility] inferolateral wall, as coded in the [...] MV E-wave Vmax 0.9 m/sec MV deceleration [id number] msec MV A-wave Vmax 0.5 m/sec MV [...] Normal Mid-Posterolateral Akinetic Mid-Inferior Normal Mid-Inferoseptal Normal [place]-Septal Normal [place]-Anterior Normal [place]-Lateral Normal [place]-Inferior Normal [place]-Tip Normal This report has been electronically signed by: Dao Perez MD 07/15/2017 13:08:41 Images reviewed and interpretation verified [facility] Cardiac Ultrasound Laboratory Ky Amato MD ECHO ORDERABLES * EKG 12 Lead (07/15/2017 7:31 AM EDT) Ventricular rate 81 BPM MUSE SYSTEM Atrial Rate 81 BPM MUSE SYSTEM P-R Interval 134 ms MUSE SYSTEM QRS Duration 94 ms MUSE SYSTEM Q-T Interval 354 ms MUSE SYSTEM QTC Calculated (Bezet) 411 ms MUSE SYSTEM Calculated P [place] 36 degrees MUSE SYSTEM Calculated R [place] 36 degrees MUSE SYSTEM Calculated T [place] 45 degrees MUSE SYSTEM INTERPRETATION Normal sinus rhythm Normal ECG When compared with ECG of 14-JUL-2017 08:54, (unconfirmed) Criteria for Inferior-posterio r infarct are no longer Present I personally reviewed the tracing and edited the fellows interpretation Confirmed by fellow MD Linda, Jerri Rodney ([id number]) on 07/15/2017 11:45:01 AM Confirmed by MEÑO, ??KY PANDEY ([id number]) on 07/15/2017 12:47:33 PM MUSE SYSTEM 07/15/2017 7:31 AM EDT 07/15/2017 12:47 PM EDT Ky Amato MD ECG ORDERABLES MUSE SYSTEM * (ABNORMAL) Differential, Automated (07/15/2017 4:37 AM EDT) Pathologist [facility] Neutrophil % 65.1 % [facility] Neutrophil Absolute 6.19(H) 1.70 - 6.10 x10(3)/mc L [facility] Lymph % 23.2 % [facility] Lymphocytes Abs 2.2 0.9 - 3.2 x10(3)/mc L [facility] Monocyte % 9.7 % [facility] Monocyte Abs 0.9 0.3 - 0.9 x10(3)/mc L [facility] Eos % 1.3 % [facility] Eosinophils Abs 0.1 0.0 - 0.4 x10(3)/mc L [facility] Basophil % 0.3 % [facility] Baso Absolute 0.0 0.0 - 0.1 x10(3)/mc L [facility] Immature Gran % 0.40 % [facility] Comment: Immature granulocytes(IG's)percentage and absolute count will include metamyelocytes, myelocytes, and promyelocytes. Blood smears from CBCs yielding IG's will be scanned manually for concordance. If this scan disagrees with the automated IG or if promyelocytes are noted, a manual differential will be performed. Immature Gran Absolute 0.04 0.00 - 0.04 x10(3)/ L [facility] Blood specimen (specimen) 07/15/2017 4:37 AM EDT 07/15/2017 4:46 AM EDT Narrative Resulting Agency Comment Spec In Lab Ky Amato MD HEMATOLOGY ORDERABLE S [facility] [place] [address] * (ABNORMAL) Hemogram (07/15/2017 4:37 AM EDT) White Blood Cell 9.5 4.0 - 9.5 x10(3)/ L [facility] Red Blood Cell 4.24(L) 4.58 - 5.54 x10(6)/[facility] LABORATORY Hemoglobin 12.3(L) 13.7 - 16.5 gm/dL [facility] Hematocrit 36.5(L) 40.5 - 48.5 % [facility] Mean Cell Volume 86.1 82.9 - 93.1 fL [facility] Mean Cell Hemoglobin 29.0 27.5 - 32.1 pg [facility] Mean Cell Hemoglobin Concentration 33.7 32.0 - 35.7 gm/dL [facility] Platelet 145 145 - 357 x10(3)/ L [facility] RDW Standard Deviation 42.3 36.0 - 45.0 [facility] LAB[facility]ORY RDW coefficient of variation 13.5 11.4 - 13.8 % [facility] Mean Platelet Volume 10.2 7.6 - 12.9 [facility]ORATORY NRBC% auto 0.0 % [facility] NRBC Absolute 0.000 0.000 - 0.000 x10(3)/mc L [facility] Blood specimen (specimen) 07/15/2017 4:37 AM EDT 07/15/2017 4:46 AM EDT Narrative Resulting Agency Comment Spec In Lab Ky Amato MD HEMATOLOGY ORDERABLE S Performing Organization Address [facility]/ZIP Co de Phone Number [facility] [place] [address] * Magnesium (07/15/2017 4:37 AM EDT) Magnesium 0.96 0.69 - 1.07 mmol/L [facility] Blood specimen (specimen) 07/15/2017 4:37 AM EDT 07/15/2017 4:46 AM EDT Narrative Resulting Agency Comment Spec In Lab Ky Amato MD CHEMISTRY ORDERABLES Performing Organization Address [facility] Co de Phone Number [facility] [place] [address] * Basic Metabolic Panel (non-fasting) (07/15/2017 4:37 AM EDT) Glucose 114 65 - 199 mg/dL [facility] Comment:Diabetes: >=200 mg/d L plus symptoms Blood Urea Nitrogen 10 10 - 20 mg/dL [facility] Creatinine 0.88 0.80 - 1.50 mg/dL [facility] Comment: Please note that the pediatric reference intervals supplied above were not validated at [facility]. Results from pediatric patients should be interpreted in conjunction to the patient's age, height and muscle mass. Sodium 137 135 - 145 mmol/L [facility] Potassium 4.1 3.5 - 5.0 mmol/L [facility] Comment: Please note: ??Patients with WBC >100,000 may have falsely elevated Potassium levels. ??For accurate Potassium quantification in these patients send serum separator tube (gold top) for subsequent determinations. ??Contact the Clinical Chemistry Laboratory if there are any questions. Chloride 100 98 - 107 mmol/L [facility] Carbon Dioxide 25 22 - 31 mmol/L [facility] Anion Gap 12 5 - 15 mmol/L [facility] Calcium 8.9 8.5 - 10.5 mg/dL [facility] Est Glomerular Filtration Rate >60 >=60 [facility] Comment: This estimated GFR (eGFR) [...] the following links into your internet browser. [email or web address] Blood specimen (specimen) 07/15/2017 4:37 AM EDT 07/15/2017 4:46 AM EDT Narrative Resulting Agency Comment Spec In Lab Ky Amato MD CHEMISTRY ORDERABLES [facility] [place] [address] * EKG 12 Lead (07/14/2017 8:54 AM EDT) Ventricular rate 84 BPM MUSE SYSTEM Atrial Rate 84 BPM MUSE SYSTEM P-R Interval 148 ms MUSE SYSTEM QRS Duration 96 ms MUSE SYSTEM Q-T Interval 366 ms MUSE SYSTEM QTC Calculated (Bezet) 432 ms MUSE SYSTEM Calculated P Clayton 40 degrees MUSE SYSTEM Calculated R Clayton 36 degrees MUSE SYSTEM Calculated T Clayton 62 degrees MUSE SYSTEM INTERPRETATION Normal sinus rhythm Low voltage QRS Inferior-po sterior infarct (cited on or before 13-JUL-2017 ) Abnormal ECG When compared with ECG of 13-JUL-2017 15:02, (unconfirme d) Serial changes of evolving Inferior-po sterior infarct Present Confirmed by MD Alecia, Ruperto Moya ([id number]) on 07/15/2017 12:53:12 PM MUSE SYSTEM 07/14/2017 8:54 AM EDT 07/15/2017 12:53 PM EDT Ky Amato MD ECG ORDERABLES MUSE SYSTEM * POCT Glucose (07/14/2017 8:07 AM EDT) Glucose, POC 122 65 - 199 mg/dL [facility] Comment: Supplemental ranges: <140 mg/dL before meals <180 mg/dL all other times of the day Blood specimen (specimen) 07/14/2017 8:07 AM EDT 07/14/2017 8:07 AM EDT Ky Amato MD POINT OF CARE TEST O RDERABLES Performing Organization Address [facility] Co de Phone Number [facility] [place] [address] * (ABNORMAL) Cardiac Enzymes (07/14/2017 3:20 AM EDT) Troponin-T 5.83(H) 0.00 - 0.00 ng/mL [facility] Comment: result rechecked-[facility] The 99th percentile for Troponin T is less than 0.01 ng/mL, any detectable cTnT concentration using this assay should be considered elevated. According to the third universal definition of myocardial infarction the following criteria with a clinical presentation consistent with acute myocardial ischemia meets the diagnosis for a myocardial infarction ([place]). Detection of a rise and/or fall of cTnT, with at least one value greater than the 99th percentile (> or = 0.01) and with at least one of the following ?? Symptoms of ischemia ?? New or presumed new significant [place]-wkfyvzn-I wave (ST-T) changes or new left bundle [...] additional sample may be indicated. Reference: Third Ecru Definition of Myocardial Infarction. Journal of the [place] 2012;60:1581-98 Creatine Kinase 2,165(H) 0 - 200 unit/L [facility] Blood specimen (specimen) Venous Draw / Unknown 07/14/2017 3:20 AM EDT 07/14/2017 3:33 AM EDT Narrative Resulting Agency Comment Spec In Lab Ky Amato MD CHEMISTRY ORDERABLES [facility] [place] [address] * (ABNORMAL) Differential, Automated (07/14/2017 3:20 AM EDT) Neutrophil % 81.8 % [facility] Neutrophil Absolute 9.44(H) 1.70 - 6.10 x10(3)/mc L [facility] Lymph % 11.2 % [facility] Lymphocytes Abs 1.3 0.9 - 3.2 x10(3)/mc L [facility] Monocyte % 6.2 % [facility] Monocyte Abs 0.7 0.3 - 0.9 x10(3)/mc L [facility] Eos % 0.1 % [facility] Eosinophils Abs 0.0 0.0 - 0.4 x10(3)/mc L [facility] Basophil % 0.3 % [facility] Baso Absolute 0.0 0.0 - 0.1 x10(3)/mc L [facility] Immature Gran % 0.40 % [facility] Comment: Immature granulocytes(IG's)percentage and absolute count will include metamyelocytes, myelocytes, and promyelocytes. Blood smears from CBCs yielding IG's will be scanned manually for concordance. If this scan disagrees with the automated IG or if promyelocytes are noted, a manual differential will be performed. Immature Gran Absolute 0.05(H) 0.00 - 0.04 x10(3)/mc L [facility] Blood specimen (specimen) 07/14/2017 3:20 AM EDT 07/14/2017 3:33 AM EDT Narrative Resulting Agency Comment Spec In Lab Ky Amato MD HEMATOLOGY ORDERABLE S [facility] [place] [address] * (ABNORMAL) Hemogram (07/14/2017 3:20 AM EDT) White Blood Cell 11.5(H) 4.0 - 9.5 x10(3)/[facility] Red Blood Cell 4.56(L) 4.58 - 5.54 x10(6)/[facility] Hemoglobin 13.5(L) 13.7 - 16.5 gm/dL [facility] Hematocrit 38.8(L) 40.5 - 48.5 % [facility] Mean Cell Volume 85.1 82.9 - 93.1 fL [facility] Mean Cell Hemoglobin 29.6 27.5 - 32.1 pg [facility] Mean Cell Hemoglobin Concentration 34.8 32.0 - 35.7 gm/dL [facility] Platelet 197 145 - 357 x10(3)/[facility] RDW Standard Deviation 42.0 36.0 - 45.0 [facility] RDW coefficient of variation 13.6 11.4 - 13.8 % [facility] Mean Platelet Volume 10.4 7.6 - 12.9 [facility]ORY NRBC% auto 0.0 % [facility] NRBC Absolute 0.000 0.000 - 0.000 x10(3)/[facility] Blood specimen (specimen) 07/14/2017 3:20 AM EDT 07/14/2017 3:33 AM EDT Narrative Resulting Agency Comment Spec In Lab Ky Amato MD HEMATOLOGY ORDERABLE S Performing Organization Address City/[facility]/ZIP Co de Phone Number [facility] [place] [address] * Magnesium (07/14/2017 3:20 AM EDT) [facility] Magnesium 0.70 0.69 - 1.07 mmol/L [facility] Blood specimen (specimen) 07/14/2017 3:20 AM EDT 07/14/2017 3:33 AM EDT Narrative Resulting Agency Comment Spec In Lab Ky Amato MD CHEMISTRY ORDERABLES Performing Organization Address [facility] Co de Phone Number [facility] [place] [address] * (ABNORMAL) Basic Metabolic Panel (non-fasting) (07/14/2017 3:20 AM EDT) [facility] Glucose 129 65 - 199 mg/dL [facility] Comment:Diabetes: >=200 mg/d L plus symptoms Blood Urea Nitrogen 11 10 - 20 mg/dL [facility] Creatinine 0.79(L) 0.80 - 1.50 mg/dL [facility] Comment: Please note that the pediatric reference intervals supplied above were not validated at [facility]. Results from pediatric patients should be interpreted in conjunction to the patient's age, height and muscle mass. Sodium 139 135 - 145 mmol/L [facility] Potassium 4.3 3.5 - 5.0 mmol/L [facility] Comment: Please note: ??Patients with WBC >100,000 may have falsely elevated Potassium levels. ??For accurate Potassium quantification in these patients send serum separator tube (gold top) for subsequent determinations. ??Contact the Clinical Chemistry Laboratory if there are any questions. Chloride 103 98 - 107 mmol/L [facility] Carbon Dioxide 22 22 - 31 mmol/L [facility] Anion Gap 14 5 - 15 mmol/L [facility] Calcium 8.6 8.5 - 10.5 mg/dL [facility] Est Glomerular Filtration Rate >60 >=60 [facility] Comment: This estimated GFR (eGFR) [...] the following links into your internet browser. [email or web address] Blood specimen (specimen) 07/14/2017 3:20 AM EDT 07/14/2017 3:33 AM EDT Narrative Resulting Agency Comment Spec In Lab Ky Amato MD CHEMISTRY ORDERABLES Performing Organization Address [facility] Co de Phone Number [facility] [place] [address] * TSH (07/14/2017 3:20 AM EDT) Thyroid Stimulating Hormone 1.55 0.27 - 4.20 mlU/ML [facility] Blood specimen (specimen) 07/14/2017 3:20 AM EDT 07/14/2017 3:33 AM EDT Narrative Resulting Agency Comment Spec In Lab Ky Amato MD CHEMISTRY ORDERABLES Performing Organization Address [facility] Co de Phone Number [facility] [place] [address] * (ABNORMAL) Lipid Panel (07/14/2017 3:20 AM EDT) Cholesterol, Total 121 <=239 mg/dL [facility] Triglyceride 72 <=199 mg/dL [facility] HDL Cholesterol 37(L) >=40 mg/dL [facility] LDL Cholesterol 70 <=190 mg/dL [facility] Cholesterol/HDL Ratio 3.3 ratio [facility] Lipid Interpretation See Note [facility] Comment: Lipid management should be guided by a patient? s ASCVD risk, goals and preferences. ACC/AHA Guidelines recommend high intensity statin if clinical ASCVD or LDL greater than or equal to 190 mg/dL. [email or web address] Adults aged 40-75 with LDL 70-189 mg/dL should have their 10 year ASCVD risk estimated with the ACC/AHA ASCVD risk ophthalmic medical technologist http://tools.acc.org/QFDWX-Bjry-Wpbohofyv/ Statin should be discussed if risk greater [...] In Lab Ky Amato MD CHEMISTRY ORDERABLES [facility] [place] [address] * Hemoglobin A1c (07/14/2017 3:20 AM EDT) Hemoglobin A1c 5.1 4.3 - 5.6 % [facility] Comment: Reference Range: 4.3 [...] Mellitus, Diabetes Care 2013; 36: Suppl. 1, M94-31 Estimated Average Glucose 100 mg/dL [facility] Comment: eAG equivalents for HbA1c [...] into estimated average glucose values. ??Diabetes Care 2008:31(8):2936-3722. Blood specimen (specimen) 07/14/2017 3:20 AM EDT 07/14/2017 3:33 AM EDT Narrative Resulting Agency Comment Spec In Lab Ky Amato MD CHEMISTRY ORDERABLES Performing Organization Address City/State/[facility] Co de Phone Number [facility] [place] [address] * SCAN DOC: MACHINE WASHER (07/14/2017 12:00 AM EDT) Anatomical Region Laterality Modality Other Narrative 07/14/2017 12:00 AM EDT Ordered by an unspecified provider. Scanning Provider MEDIA MGR SCAN EXT O RDR/RSLT * (ABNORMAL) Cardiac Enzymes (07/13/2017 9:10 PM EDT) Troponin-T 7.00(H) 0.00 - 0.00 ng/mL [facility] Comment: Result rechecked. The 99th percentile for Troponin T is less than 0.01 ng/mL, any detectable cTnT concentration using this assay should be considered elevated. According to the third universal definition of myocardial infarction the following criteria with a clinical presentation consistent with acute myocardial ischemia meets the diagnosis for a myocardial infarction ([place]). Detection of a rise and/or fall of cTnT, with at least one value greater than the 99th percentile (> or = 0.01) and with at least one of the following ?? Symptoms of ischemia ?? New or presumed new significant OI-sovbigx-Z wave (ST-T) changes or new left bundle [...] additional sample may be indicated. Reference: Third Ecru Definition of Myocardial Infarction. Journal of the [employer] 2012;60:1581-98 Creatine Kinase 2,820(H) 0 - 200 unit/L [facility] Blood specimen (specimen) 07/13/2017 9:10 PM EDT 07/13/2017 9:14 PM EDT Narrative Resulting Agency Comment Spec In Lab Ky Amato MD CHEMISTRY ORDERABLES [facility] [place] [address] * XR Chest PA or AP 1 [...] * POCT Glucose (07/13/2017 7:30 PM EDT) Glucose, POC 110 65 - 199 mg/dL [facility] Comment: Supplemental ranges: <140 mg/dL before meals <180 mg/dL all other times of the day Blood specimen (specimen) 07/13/2017 7:30 PM EDT 07/13/2017 7:30 PM EDT Ky Amato MD POINT OF CARE TEST O RDERABLES [facility] [place] [address] * EKG 12 Lead (07/13/2017 3:02 PM EDT) Ventricular rate 76 BPM MUSE SYSTEM Atrial Rate 76 BPM MUSE SYSTEM P-R Interval 158 ms MUSE SYSTEM QRS Duration 92 ms MUSE SYSTEM Q-T Interval 378 ms MUSE SYSTEM QTC Calculated (Bezet) 425 ms MUSE SYSTEM Calculated P Clayton 39 degrees MUSE SYSTEM Calculated R Clayton 51 degrees MUSE SYSTEM Calculated T Clayton 68 degrees MUSE SYSTEM INTERPRETATION Normal sinus rhythm Inferior-poste rior infarct , possibly acute * ACUTE [place] ?? Consider right ventricular involvement in acute inferior infarct Abnormal ECG No previous ECGs available Confirmed by MD Alecia, Ruperto oMya ([id number]) on 07/15/2017 12:53:01 PM MUSE SYSTEM 07/13/2017 3:02 PM EDT 07/15/2017 12:53 PM EDT Ky Amato MD ECG ORDERABLES Performing Organization Address City/[facility]/ZIP Co de Phone Number MUSE SYSTEM * POCT Glucose (07/13/2017 3:01 PM EDT) [facility] Glucose, POC 113 65 - 199 mg/dL [facility] Comment: Supplemental ranges: <140 mg/dL before meals <180 mg/dL all other times of the day Blood specimen (specimen) 07/13/2017 3:01 PM EDT 07/13/2017 3:01 PM EDT Ky Amato MD POINT OF CARE TEST O RDERABLES Performing Organization Address City/[facility] Co de Phone Number [facility] [place] [address] * (ABNORMAL) Differential, Automated (07/13/2017 3:00 PM EDT) [facility] Neutrophil % 80.0 % [facility] Neutrophil Absolute 8.14(H) 1.70 - 6.10 x10(3)/mc L [facility] Lymph % 14.4 % [facility] Lymphocytes Abs 1.5 0.9 - 3.2 x10(3)/mc L [facility] Monocyte % 4.8 % [facility] Monocyte Abs 0.5 0.3 - 0.9 x10(3)/mc L [facility] Eos % 0.1 % [facility] Eosinophils Abs 0.0 0.0 - 0.4 x10(3)/mc L [facility] Basophil % 0.3 % [facility] Baso Absolute 0.0 0.0 - 0.1 x10(3)/mc L [facility] Immature Gran % 0.40 % [facility] Comment: Immature granulocytes(IG's)percentage and absolute count will include metamyelocytes, myelocytes, and promyelocytes. Blood smears from CBCs yielding IG's will be scanned manually for concordance. If this scan disagrees with the automated IG or if promyelocytes are noted, a manual differential will be performed. Immature Gran Absolute 0.04 0.00 - 0.04 x10(3)/[facility] Blood specimen (specimen) 07/13/2017 3:00 PM EDT 07/13/2017 3:18 PM EDT Narrative Resulting Agency Comment Spec In Lab Ky Amato MD HEMATOLOGY ORDERABLE S [facility] [place] [address] * (ABNORMAL) Hemogram (07/13/2017 3:00 PM EDT) White Blood Cell 10.2(H) 4.0 - 9.5 x10(3)/[facility] Red Blood Cell 4.60 4.58 - 5.54 x10(6)/[facility] Hemoglobin 13.4(L) 13.7 - 16.5 gm/dL [facility] Hematocrit 39.8(L) 40.5 - 48.5 % [facility] Mean Cell Volume 86.5 82.9 - 93.1 fL [facility] Mean Cell Hemoglobin 29.1 27.5 - 32.1 pg [facility] Mean Cell Hemoglobin Concentration 33.7 32.0 - 35.7 gm/dL [facility] Platelet 193 145 - 357 x10(3)/[facility] RDW Standard Deviation 41.3 36.0 - 45.0 fL [facility] RDW coefficient of variation 13.4 11.4 - 13.8 % [facility] Mean Platelet Volume 9.9 7.6 - 12.9 fL [facility] NRBC% auto 0.0 % [facility] NRBC Absolute 0.000 0.000 - 0.000 x10(3)/mc L [facility] Blood specimen (specimen) 07/13/2017 3:00 PM EDT 07/13/2017 3:18 PM EDT Narrative Resulting Agency Comment Spec In Lab Ky Amato MD HEMATOLOGY ORDERABLE S Performing Organization Address [facility] Co de Phone Number [facility] [place] [address] * (ABNORMAL) APTT (07/13/2017 3:00 PM EDT) Partial Thromboplastin Time 138(Criti torey) 25 - 35 sec [facility] Comment: Called by: ALEXIA, Read back by: Germaine Núñez/CV, Date/Time:07/13/17 15:39. The recommended therapeutic range for full dose, unfractionated heparin at [facility] is 80 ? 114 seconds. The use of the anti-Xa (heparin) level rather than the PTT is recommended for monitoring anticoagulation intensity in critically ill patients receiving unfractionated heparin by continuous IV infusion. Blood specimen (specimen) 07/13/2017 3:00 PM EDT 07/13/2017 3:18 PM EDT Narrative Resulting Agency Comment Spec In Lab Ky Amato MD HEMATOLOGY ORDERABLE S Performing Organization Address [facility] Co de Phone Number [facility] [place] [address] * (ABNORMAL) Prothrombin Time (07/13/2017 3:00 PM EDT) Prothrombin Time 16.0(H) 12.0 - 15.0 sec [facility] Comment: An INR [...] may be appropriate depending on clinical circumstances. International Normalization Ratio 1.2(H) 0.9 - 1.1 [facility] Blood specimen (specimen) 07/13/2017 3:00 PM EDT 07/13/2017 3:18 PM EDT Narrative Resulting Agency Comment Spec In Lab Ky Amato MD HEMATOLOGY ORDERABLE S [facility] [place] [address] * (ABNORMAL) Cardiac Enzymes (07/13/2017 3:00 PM EDT) Troponin-T 4.96(H) 0.00 - 0.00 ng/mL [facility] Comment: The 99th percentile for Troponin T is less than 0.01 ng/mL, any detectable cTnT concentration using this assay should be considered elevated. According to the third universal definition of myocardial infarction the following criteria with a clinical presentation consistent with acute myocardial ischemia meets the diagnosis for a myocardial infarction ([place]). Detection of a rise and/or fall of cTnT, with at least one value greater than the 99th percentile (> or = 0.01) and with at least one of the following ?? Symptoms of ischemia ?? New or presumed new significant XB-pmkkdox-X wave (ST-T) changes or new left bundle [...] additional sample may be indicated. Reference: Third Ecru Definition of Myocardial Infarction. Journal of the [place] 2012;60:1581-98 Creatine Kinase 2,712(H) 0 - 200 unit/L [facility] Blood specimen (specimen) 07/13/2017 3:00 PM EDT 07/13/2017 3:18 PM EDT Narrative Resulting Agency Comment Spec In Lab Ky Amato MD CHEMISTRY ORDERABLES [facility] [place] [address] * (ABNORMAL) Comprehensive metabolic panel (non-fasting) (07/13/2017 3:00 PM EDT) Glucose 119 65 - 199 mg/dL [facility] Comment:Diabetes: >=200 mg/d L plus symptoms Blood Urea Nitrogen 11 10 - 20 mg/dL [facility] Creatinine 1.01 0.80 - 1.50 mg/dL [facility] Comment: Please note that the pediatric reference intervals supplied above were not validated at [facility]. Results from pediatric patients should be interpreted in conjunction to the patient's age, height and muscle mass. Sodium 139 135 - 145 mmol/L [facility] Potassium 4.4 3.5 - 5.0 mmol/L [facility] Comment: Please note: ??Patients with WBC >100,000 may have falsely elevated Potassium levels. ??For accurate Potassium quantification in these patients send serum separator tube (gold top) for subsequent determinations. ??Contact the Clinical Chemistry Laboratory if there are any questions. Chloride 103 98 - 107 mmol/L [facility] Carbon Dioxide 24 22 - 31 mmol/L [facility] Anion Gap 12 5 - 15 mmol/L [facility] Calcium 8.4(L) 8.5 - 10.5 mg/dL [facility] Protein, Total 6.0(L) 6.1 - 8.0 gm/dL [facility] Albumin 3.0(L) 3.2 - 5.2 gm/dL [facility] Aspartate Aminotransferase 193(H) 0 - 39 unit/L [facility] Alanine Aminotransferase 35 0 - 55 unit/L [facility] Alkaline Phosphatase 44 40 - 120 unit/L [facility] Bilirubin, Total 0.6 0.2 - 1.3 mg/dL [facility] Est Glomerular Filtration Rate >60 >=60 [facility] Comment: This estimated GFR (eGFR) [...] the following links into your internet browser. [email or web address] Blood specimen (specimen) 07/13/2017 3:00 PM EDT 07/13/2017 3:18 PM EDT Narrative Resulting Agency Comment Spec In Lab Ky Amato MD CHEMISTRY ORDERABLES [facility] [place] [address] * CARDIAC CATHETERIZATION (07/13/2017 2:29 PM EDT) Anatomical Region Laterality Modality Other Narrative 07/13/2017 2:53 PM EDT ?[facility] ? Cardiac Catheterization/Intervention Report ? Patient Name: Rolo Aguilar ? Procedure Date: 07/13/2017 ? A #: [id number] ? Primary Physician: Neftali White V ? Case #: [id number] ? File Name: [id number] ? Catheterization Order Number: [id number] ? [facility] ?Director Of [facility] ? Final Report [place], [place] ? Patient Name: ? Rolo M Jeff ? ID#: ?[id number] ? : ?1970 ? Procedure Date: ? [...] at Catheterization: ?The patient presented with: ST-Elevation [place] (STEMI) or equivalent (w/i 7 ?days). [employer] angina class was IV. 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 ?Recommend continuing clopidogrel 75 mg PO daily [...] Procedure Note Neftali White MD - 10/23/2017 [facility] Cardiac Catheterization/Intervention Report Patient Name: Rolo Aguilar Procedure Date: 07/13/2017 A #: [id number] Primary Physician: Neftali White V Case #: [id number] File Name: [id number] Catheterization Order Number: [id number] [facility] FinalReport [place], [place] Patient Name: Rolo Aguilar ID#:[id number] :1970 Procedure Date: July 13, 2017 Case [...] at Catheterization: The patient presented with: ST-Elevation [place] (STEMI) or equivalent(w/i 7 days). [employer] angina class was IV. 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 Recommend continuing clopidogrel 75 mg PO daily [...] 500 mg, Oral, ONCE, 1 dose, On 07/13/17 at 2215, Routine Given 07/13/2017 10:14 PM [...] infusion 50 mL/hr, Intravenous, CONTINUOUS, Starting on [place] 07/13/17 at 1515, Until [place] 07/13/17 at 2014, Recovery (Recovery-Hospital Unit) Rate/Dose Change [...] on Fri07/13/17 at 1815, Until Discontinued, Routine 1708 (Given - Provider: Cherelle Loaiza RN) 1644 (Given - Provider: Mavis Gamboa RN) clonazePAM (KlonoPIN) tablet 1 mg 1 mg, Oral, 2 TIMES DAILY, First dose on Fri07/13/17 at 2100, Until Discontinued, Routine 0906 (Given [...] 09 (Given - Provider: Rachana Macias RN) 08 (Given - Provider: Mavis Gamboa RN) 0833 (Given - Provider: Mavis Gamboa RN) heparin (Porcine) subcutaneous injection 5,000 Units 5,000 Units, Subcutaneous, EVERY 8 HOURS SCHEDULED, First dose on Fri07/14/17 at 0600, Until Discontinued, Routine 0610 (Given - Provider: Maria G Carrasco RN)1510 (Given - Provider: Cherelle Loaiza RN)203 (Given - Provider: Db Monsalve)2200 (Not Given - Provider: Db Monsalve - Reason: Contraindicated - Comment: given earlier per patient request) 0543 (Given - Provider: Db Monsalve)1431 (Given - Provider: Mavis Gamboa RN)2034 (Given [...] (Given - Provider: Maria G Carrasco RN) meTOPROLOL tartrate (LOPRESSOR) tablet 25 mg 25 mg, Oral, EVERY 12 HOURS SCHEDULED (2 times per day), First dose on 07/13/17 at 2100, Until Discontinued, Routine 905 (Given - Provider: Rachana Macias, RN)2024 (Given - Provider: Db Monsalve) 08 (Given - Provider: Mavis Gamboa, FLAVIA)2025 (Given - Provider: Thor Bobo, FLAVIA) 0834 (Given - Provider: Mavis Gamboa, FLAVIA) pantoprazole (PROTONIX) tablet 40 mg 40 mg, Oral, DAILY, First dose on 07/13/17 at 1630, Until Discontinued, DO NOT CRUSH OR OPEN 0804 (Given - Provider: Rachana Macias RN) 08 (Given - Provider: Mavis Gamboa, FLAVIA) 0834 (Given - Provider: Mavis Gamboa, FLAVIA) ziprasidone (GEODON) capsule 20 mg 20 mg, [...] PRN, Starting on 07/13/17 at 1450, Until 07/16/17 at 1352, Chest pain, May repeat every 5 minutes for a total of three doses. Notify provider if chest pain not relieved with nitroglycerin. Do not administer nitroglycerin if the patinet has received or taken phosphodiesterase (PDE-5) inhibitors such as sildenafil, tadalafil or vardenafil within the last 24 to 72 hours., Routine documented in this encounter Care Teams Commercial Crabber Relationship Specialty Start Date End Date Severo Bowman MD [address] [place] [address] PCP - General General Internal Medicine 04/21/1707/11 documented as of this encounter
--- OUTSIDE RECORDS SUMMARY | 2024-06-17 22:24 | XMS_ITS | Encounter Summary ---
Author Organization [facility] [place] [address] Care Team Providers Care Home Care Nurse Name Role Phone Bin Bowman MD Primary Care Provider Reason for Visit * Reason Comments GI Problem Encounter Details Date Type Department Care Team (Latest Contact Info) Description 01/20/2018 12:00 PM EDT Office Visit [place] [address] Breonna Ambrocio, WEB MARKETING MANAGER [address] [place] [address] Gastroesophageal reflux disease without esophagitis; Dyspepsia; Dysphagia, [...] Ambrocio APRN - 01/20/2018 12:00 PM EDT Fine Arts Packer: Breonna Ambrocio APRN PCP: Bin Bowman MD [...] this 31 minute visit were spent in [id number] discussion and counseling the patientas detailed per [...] Was using carafate for a little while. [place] this helped. Had an EGD in September 2016. Was told everything is normal, although patient states he feels he would like another EGD done by a registered representative and not a general surgeon. Denies dysphagia, odynophagia, globus. Denies regurgitation, nausea, vomiting. Decreased appetite. Early satiety. Post-prandial bloating frequently. Denies chronic NSAID use. No anemia. Abdominal pain related to heartburn and bloating. Denies diarrhea and constipation. No cramping or urgency. No blood or mucus in stool. No anal or rectal pain. Will get chills in the packager or late at night. 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 [...] 1:27 PM Section of Gastroenterology & Hepatology [facility] ?? documented in this encounter Plan of Treatment Upcoming Encounters Date Type Department Care Team (Late st Contact Info) Description 06/23/2024 10:00 AM EDT Office Visit Cardiology at [address] [place] [address] Mo Horne MD [facility] [place] [address] 09/21/2024 10:[address] [place] [address] Rachel Carrasco MD [facility] [place] [address] 09/21/2024 11:00 AM EST Office [place] [address] Rachel Carrasco MD [facility] [place] [address] documented as of this encounter Visit Diagnoses Diagnosis Gastroesophageal reflux disease without esophagitis Esophageal reflux Dyspepsia Dyspepsia and other specified disorders of function of stomach Dysphagia, unspecified type Bloating Flatulence, eructation, and gas pain documented in this encounter Care Teams Home Care Nurse Relationship Specialty Start Date End Date Bin Bowman MD [address] [address] PCP - General General Internal Medicine 04/21/1707/11 documented as of this encounter
--- OUTSIDE RECORDS SUMMARY | 2024-06-17 22:24 | XMS_ITS | Encounter Summary ---
Author Organization [facility] [place] [address] Care Team Providers Care Laundry Routeman Name Role Phone Bin Bowman MD Primary Care Provider Reason for Visit * Reason Comments Medication Refill Encounter Details Date Type Department Care Team (Late st Contact Info) Description 12/03/2017 Refill [place] [address] Hawk Coker DO [facility] HEMATOLOGY/[place] [address] Social History Tobacco Use Types Packs/Day Years [...] AM EDT Office Visit Cardiology at [address] [address] Mo Horne MD [facility] [place] [address] 09/21/2024 10:[address] [place] [place] [address] Rachel Carrasco MD [facility] [place] [address] 09/21/2024 11:00 AM EST [place] [address] Rachel Carrasco MD [facility] [place] [address] documented as of this encounter Visit Diagnoses Not on filedocumented in this encounter Care Teams Laundry Routeman Relationship Specialty Start Date End Date Bin Bowman MD [address] [address] PCP - General General Internal Medicine 04/21/1707/11 documented as of this encounter
--- OUTSIDE RECORDS SUMMARY | 2024-06-17 22:24 | XMS_ITS | Encounter Summary ---
Author Organization [facility] Address [facility] [place] [address] Care Team Providers Care Produce Production Team Member Name Role Phone Bin Bowman MD Primary Care Provider Encounter Details Date Type Department Care Team (Late st Contact Info) Description 01/23/2018 External [place] [address] Franci Brooks, RN Social History [...] AM EDT Office Visit Cardiology at [address] [place] [address] Mo Horne MD [facility] [place] [address] 09/21/2024 10:[address] [place] [place] [address] Rachel Carrasco MD [facility] [place] [address] 09/21/2024 11:00 AM EST [place] [address] Rachel Carrasco MD [facility] [place] [address] documented as of this encounter Procedures Procedure Name Priority Date/Time Associated Diagnosis Comments EXTERNAL LAB CBC CMP THYROID RESULTS PANEL Routine 01/23/2018 documented in this encounter Results * CBC / CMP / Thyroid External Results (01/23/2018) Sodium 138 Potassium 4.2 Chloride 99 Carbon Dioxide 28 Blood Urea Nitrogen 11 Creatinine 0.9 Calcium 9.2 Protein, Total 7.5 Albumin 4.2 Bilirubin, Total 0.6 Bilirubin, Direct 0.2 Alkaline Phosphatase 65 Aspartate Aminotransferase 20 Alanine Aminotransferase 35 Gamma Glutamyl Transferase 28 01/23/2018 Historical Provider EXTERNAL LAB SCOOTER YOUNGBLOOD documented in this encounter Visit Diagnoses Not on filedocumented in this encounter Care Teams Produce Production Team Member Relationship Specialty Start Date End Date Bin Bowman MD [address] [place] [address] PCP - General General Internal Medicine 04/21/1707/11 documented as of this encounter
--- OUTSIDE RECORDS SUMMARY | 2024-06-17 22:24 | XMS_ITS | Encounter Summary ---
Author Organization [facility] Address [facility] [place] [address] Care Team Providers Care Maintenance Helper Name Role Phone Bin Bowman MD Primary Care Provider Reason for Referral * Consultation (Routine) - Closed Specialty Diagnoses / Procedures Referred By Zeyad mishra Referred To Contact General Surgery Diagnoses Upper abdominal pain Breonna Ambrocio APRN [address] [place] [address] Colt Hewitt MD [facility] [place] [address] Referral ID Status Reason Start Date Expiration Date V isits Requested Visits Authorized [id number] Closed Consult, Test & Treat 02/20/2018 02/20/2019 1 1 Encounter Details Date Type Department Care Team (Late st Contact Info) Description 02/20/2018 Orders [place] [address] Breonna Ambrocio APRN [address] [place] [address] Upper abdominal pain Social History Tobacco Use [...] AM EDT Office Visit Cardiology at [address] [place] [address] Mo Horne MD [facility] [place] [address] 09/21/2024 10:[address] [place] [address] Rachel Carrasco MD [facility] [place] [address] 09/21/2024 11:00 AM EST Office [place] [address] Rachel Carrasco MD [facility] [place] [address] documented as of this encounter Procedures Procedure Name Priority Date/Time Associated Diagnosis Comments AMB REFERRAL TO GENERAL SURGERY Routine 03/18/2018 9:00 AM EDT Upper abdominal pain documented in this encounter Results * Referral to General Surgery (03/18/2018 9:00 AM EDT) Breonna Ambrocio TERMINAL CARMAN OUTPATIENT REFER RAL ORDERABLES documented in this encounter Visit Diagnoses Diagnosis Upper abdominal pain Abdominal pain, other specified site documented in this encounter Care Teams Maintenance Helper Relationship Specialty Start Date End Date Bin Bowman MD [address] [place] [address] PCP - General General Internal Medicine 04/21/1707/11 documented as of this encounter
--- OUTSIDE RECORDS SUMMARY | 2024-06-17 22:24 | XMS_ITS | Encounter Summary ---
Author Organization [facility] Address [facility] [place] [address] Care Team Providers Care Freight Booker Name Role Phone Bin Bowman MD Primary Care Provider Encounter Details Date Type Department Care Team (Latest Contact Info) Description 01/01/2018 4:00 PM EST Tech [place] [address] Ivonne Willis MD [facility] [place] [address] Gastroesophageal reflux disease, esophagitis presence not specified [...] Willis MD - 01/01/2018 4:00 PM EST ZIVVD-WSGBG-YBKQ WIRELESS pH CAPSULE STUDY AFTER UPPER ENDOSCOPY Rolo Aguilar [address] [place] [address] : 1970 STUDY DATE: 12/29/2017 PROVIDER: Ivonne Willis MD ([id number]) INDICATION GERD Note that this study was [...] 14.72) Day One Calculated DeMeester Score: 0.5 Qacdt-Jcmkk-Wwps (Total) Fraction of Time with pH Less Than 4%: 0.1 Pujmi-Lpvpq-Faew DeMeester Score (Total): 0.5 Day One Symptoms Association Probability (SAP) for Heartburn: 80.1 Chest pain: 0 Day Two SAP for Heartburn: 0 Regurgitation: 0 Jadjm-Vjyhv-Dvkf SAP for Heartburn: N/A Chest pain: 0 [...] Section of Gastroenterology and Hepatology [facility] [place] [address] V: [phone] F: [phone] CC/EC: PCP documented in this encounter Plan of Treatment Upcoming Encounters Date Type Department Care Team (Late st Contact Info) Description 06/23/2024 10:00 AM EDT Office Visit Cardiology at [address] [address] Mo Horne MD [facility] [place] [address] 09/21/2024 10:[address] [place] [place] [address] Rachel Carrasco MD [facility] [place] [address] 09/21/2024 11:00 AM EST [place] [address] Rachel Carrasco MD [facility] [place] [address] documented as of this encounter Visit Diagnoses Diagnosis Gastroesophageal reflux disease, esophagitis presence not specified documented in this encounter Care Teams Freight Booker Relationship Specialty Start Date End Date Bin Bowman MD [address] [place] [address] PCP - General General Internal Medicine 04/21/1707/11 documented as of this encounter
--- OUTSIDE RECORDS SUMMARY | 2024-06-17 22:24 | XMS_ITS | Encounter Summary ---
Author Organization [facility] [place] [address] Care Team Providers Care Digital Marketing Assistant Name Role Phone Bin Bowman MD Primary Care Provider Encounter Details Date Type Department Care Team (Late st Contact Info) Description 03/06/2018 Orders [place] [address] Breonna Ambrocio, NET MOBILE DEVELOPER [address] [place] [address] Social History Tobacco Use Types Packs/Day Years [...] AM EDT Office Visit Cardiology at [address] [address] Mo Horne MD [facility] [place] [address] 09/21/2024 10:[address] [place] [place] [address] Rachel Carrasco MD [facility] [place] [address] 09/21/2024 11:00 AM EST [place] [address] Rachel Carrasco MD [facility] [place] [address] documented as of this encounter Visit Diagnoses Not on filedocumented in this encounter Care Teams Digital Marketing Assistant Relationship Specialty Start Date End Date Bin Bowman MD [address] [place] [address] PCP - General General Internal Medicine 04/21/1707/11 documented as of this encounter
--- OUTSIDE RECORDS SUMMARY | 2024-06-17 22:24 | XMS_ITS | Encounter Summary ---
Author Organization [facility] [place] [address] Care Team Providers Care Hydraulic Pile Hammer Operator Name Role Phone Bin Bowman MD Primary Care Provider Encounter Details Date Type Department Care Team (Late st Contact Info) Description 03/06/2018 Telephone [place] [address] Dimple Wolf, RN Social History Tobacco Use [...] AM EDT Office Visit Cardiology at [address] [address] Mo Horne MD [facility] [place] [address] 09/21/2024 10:[address] [place] [address] Rachel Carrasco MD [facility] [place] [address] 09/21/2024 11:00 AM EST [place] [address] Rachel Carrasco MD [facility] [place] [address] documented as of this encounter Visit Diagnoses Not on filedocumented in this encounter Care Teams Hydraulic Pile Hammer Operator Relationship Specialty Start Date End Date Bin Bowman MD [address] [place] [address] PCP - General General Internal Medicine 04/21/1707/11 documented as of this encounter
--- OUTSIDE RECORDS SUMMARY | 2024-06-17 22:24 | XMS_ITS | Encounter Summary ---
Author Organization [facility] [place] [address] Care Team Providers Care Dual Rate Dealer Name Role Phone Bin Bowman MD Primary Care Provider [phone] Reason for Visit * Reason Comments Medication Refill Encounter Details Date Type Department Care Team (Late st Contact Info) Description 12/30/2017 Ref[place] [address] Hawk Coker DO [facility] HEMATOLOGY/[place] [address] Social History Tobacco Use Types Packs/Day Years [...] AM EDT Office Visit Cardiology at [address] [address] Mo Horne MD [facility] [place] [address] 09/21/2024 10:[address] [place] [place] [address] Rachel Carrasco MD [facility] [place] [address] 09/21/2024 11:00 AM EST [place] [address] Rachel Carrasco MD [facility] [place] [address] documented as of this encounter Visit Diagnoses Not on filedocumented in this encounter Care Teams Dual Rate Dealer Relationship Specialty Start Date End Date Bin Bowman MD [address] [address] PCP - General General Internal Medicine 04/21/1707/11 documented as of this encounter
--- OUTSIDE RECORDS SUMMARY | 2024-06-17 22:24 | XMS_ITS | Encounter Summary ---
Author Organization [facility] Address [facility] [place] [address] Care Team Providers Care Granulating Blender Name Role Phone Bin Bowman MD Primary Care Provider [phone] Encounter Details Date Type Department Care Team (Late st Contact Info) Description 07/16/2017 [place] [address] Abhi Melendez MD [facility] [place] [address] Social History Tobacco Use Types Packs/Day Years [...] AM EDT Office Visit Cardiology at [address] [place] [address] Mo Horne MD [facility] [address] 09/21/2024 10:[address] [place] [address] Rachel Carrasco MD [facility] [place] [address] 09/21/2024 11:00 AM EST Office [place] [address] Rachel Carrasco MD [facility] [place] [address] documented as of this encounter Visit Diagnoses Not on filedocumented in this encounter Care Teams Granulating Blender Relationship Specialty Start Date End Date Bin Bowman MD [address] [place] [address] PCP - General General Internal Medicine 04/21/1707/11 documented as of this encounter
--- OUTSIDE RECORDS SUMMARY | 2024-06-17 22:24 | XMS_ITS | Encounter Summary ---
Author Organization [facility] [place] [address] Care Team Providers Care Battery Starter Name Role Phone Bin Bowman MD Primary Care Provider [phone] Reason for Visit * Reason Comments Medication Refill Encounter Details Date Type Department Care Team (Late st Contact Info) Description 12/31/2017 [place] [address] Hawk Coker DO [facility] HEMATOLOGY/[place] [address] Social History Tobacco Use Types Packs/Day Years [...] AM EDT Office Visit Cardiology at [address] [address] Mo Horne MD [facility] [place] [address] 09/21/2024 10:[address] [place] [place] [address] Rachel Carrasco MD [facility] [place] [address] 09/21/2024 11:00 AM EST [place] [address] Rachel Carrasco MD [facility] [place] [place] [address] documented as of this encounter Visit Diagnoses Not on filedocumented in this encounter Care Teams Battery Starter Relationship Specialty Start Date End Date Bin Bowman MD [address] [address] PCP - General General Internal Medicine 04/21/1707/11 documented as of this encounter
--- OUTSIDE RECORDS SUMMARY | 2024-06-17 22:24 | XMS_ITS | Encounter Summary ---
Author Organization [facility]ly [facility] [place] [address] Care Team Providers Care Superintendent Pipelines Name Role Phone Bin Bowman MD Primary Care Provider Reason for Visit * Reason Comments GI Problem * Consultation (Routine) - Closed Specialty Diagnoses / Procedures Referred By Zeyad mishra Referred To Contact Gastroenterology Diagnoses Elevated LFTs Breonna Ambrocio, BABAK [address] [place] [address] [facility] [place] [address] [address] Referral ID Status Reason Start Date Expiration Date V isits Requested Visits Authorized [id number] Closed Consult, Test & Treat 10/07/2017 10/07/2018 1 1 Encounter Details Date Type Department Care Team (Late st Contact Info) Description 01/20/2018 10:30 AM EDT Office [place] [address] Rachel Farrar APRN [facility] [place] [address] Nausea without vomiting; Elevated liver [...] HEPATOLOGY NEW PATIENT CONSULTATION Rolo Aguilar 1970 SAFETY INTERN: RACHEL FARRAR APRN PCP: Bin Bowman MD [...] ??? 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 PHYSICAL EXAM Vitals: 01/20/18 1028 [...] Farrar APRN Section of Gastroenterology [place] [address] Copy: Bin Bowman MD [address] [facility] [address] 35 minutes of this 38 minute visit in face to face discussion regarding disease, prognosis and treatment documented in this encounter Plan of Treatment Upcoming Encounters Date Type Department Care Team (Late st Contact Info) Description 06/23/2024 10:00 AM EDT Office Visit Cardiology at [address] [place] [address] Mo Horne MD [facility] [place] [address] 09/21/2024 10:[address] [place] [place] [address] Rachel Carrasco MD [facility] [address] 09/21/2024 11:00 AM EST [place] [address] Rahcel Carrasco MD [facility] [place] [address] documented as of this encounter Visit Diagnoses Diagnosis Nausea without vomiting Elevated liver enzymes Nonspecific elevation of levels of transaminase or lactic acid dehydrogenase (LDH) documented in this encounter Care Teams Superintendent Pipelines Relationship Specialty Start Date End Date Bin Bowman MD [address] [place] [address] PCP - General General Internal Medicine 04/21/1707/11 documented as of this encounter
--- OUTSIDE RECORDS SUMMARY | 2024-06-17 22:24 | XMS_ITS | Encounter Summary ---
Author Organization [facility] [place] [address] Care Team Providers Care Fudge Candy Maker Name Role Phone Bin Bowman MD Primary Care Provider [phone] Reason for Visit * Reason Onset Date Comments Prior Authorization 02/03/2018 Encounter Details Date Type Department Care Team (Late st Contact Info) Description 02/03/2018 [place] [address] Aydin Lugo RNelectrical systems designer Social History Tobacco Use Types Packs/Day Years [...] encounter Miscellaneous Notes * Telephone Encounter - Gabrilea Blanco CMA - 02/04/2018 7:39 AM EDT Approved for the Nexium 40 mg Tracking number: [id number] Start: until 02/02/2019 * Telephone Encounter - Aydin Lugo RN - 02/03/2018 9:25 AM EDT Prior Authorization Medication: esomeprazole Dosage: 40 mg Frequency & Route: PO BID Insurance & Phone #: [place] Medicaid ID #: [id number] Trialed (dosage, frequency): pantoprazole 40 mg BID, famotidine 20 mg BID, lansoprazole, esomeprazole 40 mg daily 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, nutcracker esophagus Notes: Submitted via covermymeds 02/02 pending documented in this encounter Plan of Treatment Upcoming Encounters Date Type Department Care Team (Late st Contact Info) Description 06/23/2024 10:00 AM EDT Office Visit Cardiology at [address] [place] [address] Mo Horne MD [facility] [place] [address] 09/21/2024 10:[address] [place] [place] [phone] Rachel Carrasco MD [facility] [place] [address] 09/21/2024 11:00 AM EST [place] [address] Rachel Carrasco MD [facility] [place] [address] documented as of this encounter Visit Diagnoses Not on filedocumented in this encounter Care Teams Fudge Candy Maker Relationship Specialty Start Date End Date Bin Bowman MD [address] [place] [address] PCP - General General Internal Medicine 04/21/1707/11 documented as of this encounter
--- OUTSIDE RECORDS SUMMARY | 2024-06-17 22:24 | XMS_ITS | Encounter Summary ---
Author Organization [facility] [place] [address] Care Team Providers Care Seaman Officer Name Role Phone Bin Bowman MD Primary Care Provider Encounter Details Date Type Department Care Team (Late Contact Info) Description 12/04/2017 Orders Only [place] [address] Breonna Ambrocio, OUTPATIENT PHLEBOTOMIST [address] [place] [address] Gastroesophageal reflux disease, esophagitis presence not specified; [...] AM EDT Office Visit Cardiology at [address] [address] Mo Horne MD [facility] [place] [address] 09/21/2024 10:[address] [place] [address] Rachel Carrasco MD [facility] [place] [address] 09/21/2024 11:00 AM EST Office [place] [phone] Rachel Carrasco MD [facility] [place] [address] documented as of this encounter Visit Diagnoses Diagnosis Gastroesophageal reflux disease, esophagitis presence not specified Dyspepsia Dyspepsia and other specified disorders of function of stomach documented in this encounter Care Teams Seaman Officer Relationship Specialty Start Date End Date Bin Bowman MD [address] [place] [address] PCP - General General Internal Medicine 04/21/1707/11 documented as of this encounter
--- OUTSIDE RECORDS SUMMARY | 2024-06-17 22:24 | XMS_ITS | Encounter Summary ---
[facility] [place] [address] Care Team Providers Care Post Graduate Intern Name Role Phone Bin Bowman MD Primary Care Provider [phone] Reason for Visit * Reason Onset Date Comments Nausea 01/16/2018 Encounter Details Date Type Department Care Team (Late st Contact Info) Description 01/16/2018 Telephone [place] [phone] Aydin Lugo RN Nausea Social History Tobacco [...] 01/16/2018 4:03 PM EST Per Breonna Ambrocio, PLATFORM MATERIAL HANDLER MANAGER: I did send in a small script [...] AM EDT Office Visit Cardiology at [address] [place] [phone] Mo Horne MD [facility] [place] [address] 09/21/2024 10:[address] [place] [address] Rachel Carrasco MD [facility] [place] [address] 09/21/2024 11:00 AM EST Office [place] [address] Rachel Carrasco MD [facility] [place] [address] documented as of this encounter Visit Diagnoses Not on filedocumented in this encounter Care Teams Post Graduate Intern Relationship Specialty Start Date End Date Bin Bowman MD [address] [place] [address] PCP - General General Internal Medicine 04/21/1707/11 documented as of this encounter
--- OUTSIDE RECORDS SUMMARY | 2024-06-17 22:24 | XMS_ITS | Encounter Summary ---
Author Organization [facility] [place] [address] Care Team Providers Care Quality Control Technician Name Role Phone Bin Bowman MD Primary Care Provider Encounter Details Date Type Department Care Team (Late st Contact Info) Description 01/16/2018 Orders [place] [address] Breonna Ambrocio, CALL CENTER MANAGER [address] [place] [address] Social History Tobacco Use Types Packs/Day Years [...] AM EDT Office Visit Cardiology at [address] [address] Mo Horne MD [facility] [place] [address] 09/21/2024 10:[address] [place] [address] Rachel Carrasco MD [facility] [place] [place] [address] 09/21/2024 11:00 AM EST Office [place] [address] Rachel Carrasco MD [facility] [place] [place] [address] documented as of this encounter Visit Diagnoses Not on filedocumented in this encounter Care Teams Quality Control Technician Relationship Specialty Start Date End Date Bin Bowman MD [address] [place] [address] PCP - General General Internal Medicine 04/21/1707/11 documented as of this encounter
--- OUTSIDE RECORDS SUMMARY | 2024-06-17 22:25 | XMS_ITS | Encounter Summary ---
Author Organization [facility] Address [facility] [place] [address] Care Team Providers Care Artificial Snow Making Machine Operator Name Role Phone Bin Bowman MD Primary Care Provider [phone] Encounter Details Date Type Department Care Team (Late st Contact Info) Description 07/13/2017 External [place] [phone] Andi Sibley MD [facility] [place] [address] Social History Tobacco Use Types Packs/Day Years [...] AM EDT Office Visit Cardiology at [address] [place] [phone] Mo Horne MD [facility] [place] [address] 09/21/2024 10:[address] [place] [place] [phone] Rachel Carrasco MD [facility] [place] [address] 09/21/2024 11:00 AM EST Office Visit Urology at [facility] [place] [address] Rachel Carrasco MD [facility] [place] [address] documented as of this encounter Procedures Procedure Name Priority Date/Time Associated Diagnosis Comments ECG SCAN Routine 07/13/2017 ECG SCAN Routine 07/13/2017 documented in this encounter Results * Scan Doc: ECG (07/13/2017) Andi Grijalva MD MEDIA MGR SCAN EXT ORDR/RSLT * Scan Doc: ECG (07/13/2017) Andi Grijalva MD MEDIA MGR SCAN EXT ORDR/RSLT documented in this encounter Visit Diagnoses Not on filedocumented in this encounter Care Teams Artificial Snow Making Machine Operator Relationship Specialty Start Date End Date Bin Bowman MD [address] [place] [address] PCP - General General Internal Medicine 04/21/1707/11 documented as of this encounter
--- OUTSIDE RECORDS SUMMARY | 2024-06-17 22:25 | XMS_ITS | Encounter Summary ---
Author Organization [facility] Address [facility] [place] [address] Care Team Providers Care Ground Support Agent Name Role Phone Bin Bowman MD Primary Care Provider Encounter Details Date Type Department Care Team (Late st Contact Info) Description 07/13/2017 Orders Only Cardiology at [address] [phone] Andi Sibley MD [facility] [place] [address] Social History Tobacco Use Types Packs/Day Years [...] AM EDT Office Visit Cardiology at [address] [place] [phone] Mo Horne MD [facility] [place] [address] 09/21/2024 10:[address] [place] [phone] Rachel Carrasco MD [facility] [place] [address] 09/21/2024 11:00 AM EST Office Visit Urology at [facility] [address] Rachel Carrasco MD [facility] [place] [place] [address] Scheduled Orders Name Type Priority Associated Diagnoses Order Schedule Cardiac Catheterization Cardiac Cath Routine One Time for 1 Occurrences starting 07/13/2017 until 07/13/2017 documented as of this encounter Visit Diagnoses Not on filedocumented in this encounter Care Teams Ground Support Agent Relationship Specialty Start Date End Date Bin Bowman MD [address] [place] [address] PCP - General General Internal Medicine 04/21/1707/11 documented as of this encounter
--- OUTSIDE RECORDS SUMMARY | 2024-06-17 22:25 | XMS_ITS | Encounter Summary ---
Author Organization [facility] [place] [address] Care Team Providers Care Water Valve Repairer Name Role Phone Bin Bowman MD Primary Care Provider Reason for Visit * Reason Comments GI Problem * Consultation (Routine) - Closed Specialty Diagnoses / Procedures Referred By Zeyad mishra Referred To Contact Gastroenterology Diagnoses GERD (gastroesophageal reflux disease) GERD, dyspepsia, intermittent LUQ pain for several months. Procedures Consultation - D requests copy of consultation note Bin Bowman MD [address] [place] [address] [facility] [place] [address] [address] Referral ID Status Reason Start Date Expiration Date V isits Requested Visits Authorized [id number] Closed Connection Center Consult, Test & Treat PCP Updated and/or Approved 04/22/2017 04/22/2018 1 1 Encounter Details Date Type Department Care Team (Latest Contact Info) Description 05/23/2017 12:00 PM EDT Office Visit [place] [address] Breonna Ambrocio, GROVE SUPERINTENDENT [address] [place] [address] Gastroesophageal reflux disease, esophagitis presence [...] Ambrocio APRN - 05/23/2017 12:00 PM EDT Cnc Router Operator: Breonna Ambrocio APRN PCP: Bin Bowman MD Requesting Provider: Bin Bowman MD Reason for Consultation This is a 46 y.o. male with a history significant for GERD, depression, anxiety, and bipolar disorder. I am seeing him as a new patient today in consult for refractory GERD symptoms. Time Spent With Patient 55 minutes of this 62 minute visit were spent in [id number] discussion and counseling the patientas detailed per [...] Was using carafate for a little while. [place] this helped. Had an EGD in September 2016. Was told everything is normal, although patient states he feels he would like another EGD done by a marine transport professionals and not a general surgeon. Denies dysphagia, odynophagia, globus. Denies regurgitation, nausea, vomiting. Decreased appetite. Early satiety. Post-prandial bloating frequently. Denies chronic NSAID use. No anemia. Abdominal pain related to heartburn and bloating. Denies diarrhea and constipation. No cramping or urgency. No blood or mucus in stool. No anal or rectal pain. Will get chills in the early childhood or late at night. 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 Has [...] 2:12 PM Section of Gastroenterology & Hepatology [facility] ?? documented in this encounter Plan of Treatment Upcoming Encounters Date Type Department Care Team (Late st Contact Info) Description 06/23/2024 10:00 AM EDT Office Visit Cardiology at [address] [address] Mo Horne MD [facility] [place] [address] 09/21/2024 10:[address] [place] [place] [address] Rachel Carrasco MD [facility] [place] [place] [address] 09/21/2024 11:00 AM EST Office [place] [phone] Rachel Carrasco MD [facility] [place] [place] [address] documented as of this encounter Visit Diagnoses Diagnosis Gastroesophageal reflux disease, esophagitis presence not specified Pyrosis Heartburn Epigastric pain Abdominal pain, epigastric Lower abdominal pain Abdominal pain, other specified site documented in this encounter Care Teams Water Valve Repairer Relationship Specialty Start Date End Date Bin Bowman MD [address] [address] PCP - General General Internal Medicine 04/21/1707/11 documented as of this encounter
--- OUTSIDE RECORDS SUMMARY | 2024-06-17 22:25 | XMS_ITS | Encounter Summary ---
Author Organization [facility] [place] [address] Care Team Providers Care Strategic Consultant Name Role Phone Severo Bowman MD Primary Care Provider Reason for Visit * Auth/Cert Specialty Diagnoses / Procedures Referred By Zeyad mishra Referred To Contact Diagnoses STEMI (ST elevation myocardial infarction) STEMI STEMI Procedures CARDIAC CATHETERIZATION Referral ID Status Reason Start Date Expiration Date Visits Re quested Visits Authorized [id number] 1 1 Encounter Details Date Type Department Care Team (Late st Contact Info) Description 07/13/2017 10:54 AM EDT - 07/13/2017 12:36 PM EDT [place] [address] Neftali White MD [facility] [place] [address] CARDIAC CATHETERIZATION Social History Tobacco Use Types [...] Rolo Aguilar Patient Age: 46 y.o. Language: Wolof Race: White Ethnicity: Not nor Admit date: 07/13/2017 Discharge date and time: 07/16/2017 Attending Physician: Ky Amato MD Discharge Physician: Hawk Coker DO (Resident) ID: Mr. Aguilar is a 46yo w/ pMHx Of HTN, HLD, GERD, morbid obesity, depression, bipolar, who presents as transfer from [facility] for chest pain and inferior STEMI. Follow-up Recommendations for Providers: - Would recommend checking BMP in 1-2 weeks as patient has been started on YANDEL inhibitor - Patient was restarted on his Ziprasidone as an inpatient, would recommend a repeat EKG to assess QTc in next few weeks - Please follow-up patient's blood pressure and titrate medications as appropriate - Cardiac rehab in [facility] Discharge Diagnoses (Hospital Problems) and Secondary Diagnoses [...] depression, bipolar, who presents as transfer from [facility] for chest pain and inferior STEMI. Patient [...] called the ambulance, who transported him to [facility], where he was loaded plavix, started on heparin gtt, and tNK was already loaded with ASA at home). He also received 1L of NS for BP in the 90/50s. It took an 1 to 1.5 hr to get to [facility]. ?? In micro lab analyst, LM was normal, RCA was normal, LAD was normal, LCD 85% long segmental stenosis of ELEANOR.S/p EMMY in OM1. ?? Patient denies recent illnesses, diarrhea, constipation, coughs, sick contacts Hospital Course: Rolo Aguilar was admitted to the Medicine Service on 07/13/2017 in stable condition. The following issues were addressed during this admission and he was discharged on 07/16/2017 ACS On admission to [facility], the patient was taken emergently to the micro lab analyst. Prior to discharge he had aCXR showing mild pulmonary edema. This was from acute diastolic heart failure. His cath showed one vessel coronary artery disease of the LCX, he received EMMY to his proximal OM1 lesion. On transfer to the [facility], the patient was chest pain free [...] was initially held in the setting ofacute [place]. This was discussed at length with the [...] ventricular segmental wall motion abnormalities present at [facility] inferolateral wall, as coded in [...] appointments: During 8am-5pm Friday through Friday call [phone] to speak with a nurse in the cardiology clinic All other times call [phone] and ask to speak to the landscaping specialist adoption social worker. Activity level: - No heavy lifting [...] 3:00 PM MOTILITY LAB [facility] 4T [facility] 09/19/2017 9:30 AM Breonna Ambrocio, GLOBAL LOGISTICS MANAGER [facility] ECHO CLIN Cardiology Follow-up: Dr. Montes -- August 01, 1:30PM PCP Follow-up: JONATAN Hay -- July 28, 11:00AM -- [phone] Your Inpatient Doctor(s) at [facility]: Ky Amato MD - Attending physician Hawk Coker DO - Resident physician Maryuri Sanchez MD - Adjutant General physician Your Primary Care Provider: Severo Bowman MD [address] / [place] [address] For questions regarding issues relating to your hospitalization on the Hospital Medicine Service, please contact your inpatient physician through the [facility] Field Cane Scaler Helper [phone]. Issues after hours and on weekends will be handled by the Hospitalist staff on-call. General Instructions None Future Appointments and Orders Future Appointments Provider Department Dept Phone 09/10/2017 3:00 PM MOTILITY LAB [facility] [place] [phone] 09/19/2017 9:30 AM Breonna Ambrocio APRN [facility] [place] [phone] Future Orders Complete By Expires Referral to Cardiac Rehab [[id number] Custom] As directed Process Instructions: If no progress note charted, please enter Clinical details in comments. Scheduling Instructions: Questions: My question or request is: STEMI. Cardiac rehab at [facility] Provider Contact Information: Severo Bowman MD [address] / [place] [address] Discharge References/Attachments: Discharge References/Attachments None documented in [...] appointments: During 8am-5pm Friday through Friday call [phone] to speak with a nurse in the cardiology clinic All other times call [phone] and ask to speak to the landscaping specialist adoption social worker. Activity level: - No heavy lifting [...] [facility] 09/19/2017 9:30 AM Breonna Ambrocio, GLOBAL LOGISTICS MANAGER [facility] E[facility] Cardiology Follow-up: Dr. Montes -- August 01, 1:30PM PCP Follow-up: JONATAN Hay -- July 28, 11:00AM -- [phone] Your Inpatient Doctor(s) at [facility]: Ky Amato MD - Attending physician aHwk Coker DO - Resident physician Maryuri Sanchez MD - Adjutant General physician Your Primary Care Provider: Severo Bowman MD [address] / [place] [address] For questions regarding issues relating to your hospitalization on the Hospital Medicine Service, please contact your inpatient physician through the [facility] Field Cane Scaler Helper [phone]. Issues after hours and on weekends will [...] by cardiac rehab. Twyla Chaudhary, PT Pager [phone] * Ky Amato MD - 07/15/2017 6:26 [...] an inferoposterior ST elevation myocardial infarction to [facility]. He was treated with thrombolytic drugs [...] OM1 and hemodynamically stable. Received tNK at [facility] prior to transfer. Hemodynamically stable so [...] MD PGY1 Internal Medicine Cardiology S1 Pager [phone] Attending Addendum: The patient was seen and examined in conjunction with the resident on rounds. My history, physical exam findings, assessment, and plan are reflected in that note. Lab and relevant imaging data was reviewed and the plan was communicated with the patient and available family. Doing well and approaching d/c. Advance GDT for CAD meds. Ky Amato MD, [facility] Attending [employer]istrar [employer] Pager [phone] * Veena Marx - 07/13/2017 7:15 PM [...] S1 Team Responsible Attending: MD PCP: Severo Bwoman MD PCP phone #: [phone] ID/Chief Complaint: 46yo male History of Present Illness: Mr. Aguilar is a 46yo w/ pMHx Of HTN, HLD, GERD, morbid obesity, depression, bipolar, who presents as transfer from [facility] for chest pain and inferior STEMI. Patient [...] called the ambulance, who transported him to [facility], where he was loaded plavix, started on heparin gtt, and tNK was already loaded with ASA at home). He also received 1L of NS for BP in the 90/50s. It took an 1 to 1.5 hr to get to [facility]. In micro lab analyst, LM was normal, RCA was normal, LAD [...] use Living Situation: Lives with mother in [place], [place]. Sees Dr. Bowman ([facility]), Sindhu Diana ([facility]). In good relationship with . 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 Invalid input(s): [id number] Heme: No results for input(s): LDH, HAPTOGLOBIN, [...] OM1 and hemodynamically stable. Received tNK at [facility] prior to transfer. #Inferior STEMI s/p [...] MD PGY1 Internal Medicine Cardiology S1 Pager [phone] Attending Addendum: The patient was seen and [...] an inferoposterior ST elevation myocardial infarction to [facility]. He was treated with thrombolytic drugs and transferred for immediate catheterization. In the [facility], radial access was difficult due to a [...] 3 day hospital course. 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 He quit smoking 3 years ago. Recently, he made changes in his diet and began walking 3 miles every day. He has lost 40 lbs and is motivated to continueto lose weight and exercise. Reviewed home exercise program with him. He is very interested in participating in cardiac rehab. Participation to an outpatient cardiac rehabilitation program at [facility] was discussed. Patient agrees to a referral [...] lives in basement [address] [place] [address] Social & Family Supports/Community Resources: Autumn Extended Emergency Contact Information Primary Emergency Contact: Autumn Aguilar Address: [address] [place] [address] [place] Relation: Spouse Secondary Emergency Contact: Lorenza Piedraann Address: [address] [place] [address] [facility] [place] Relation: Sibling Behavioral Health History: History depression, anxiety, and bipolar Substance Use/Abuse: Quit smoking 3 years ago, rare alcohol use, denies illicit drug use Other Pertinent/Service Specific Information: None Health/Prescription Coverage: Payor: [place] / Plan: [place] PRIMARY CARE PLUS / Product Type: *No Product type* / Secondary Insurance: None Prescription Coverage: see above Preferred Pharmacy: [id number] - [place], [place] - [address] [place] [address] Other: None Primary Care Provider: Severo Bowman MD [phone] Patient/Caregiver Goals of Treatment: Safe dc plan [...] planning. NEGRITA Smith, MS, BSN, RN, Pager [phone] Office of Care Management * Plan of [...] OUTCOME EVALUATION NOTE: OUTCOME SUMMARY: Transferred from [facility], A&Ox4, denies pain or SOB. Right [...] AM EDT Office Visit Cardiology at [address] [address] Mo Horne MD [facility] [place] [address] 09/21/2024 10:[address] [place] [place] [phone] Rachel Carrasco MD [facility] [place] [address] 09/21/2024 11:00 AM EST Office Visit Urology at [place] [phone] Rachel Carrasco MD [facility] [place] [address] Scheduled Referrals Name Type Priority Associated Diagnoses [...] METABOLIC PANEL Routine 07/14/2017 3:20 AM EDT TAPE EDGE MACHINE OPERATOR SCAN 07/14/2017 12:00 AM EDT CARDIAC ENZYMES ([facility]) Routine 07/13/2017 9:10 PM EDT XR CHEST ONE VIEW Routine 07/13/2017 7:5 5 PM EDT POCT GLUCOSE Routine 07/13/2017 7:30 PM EDT EKG 12-LEAD Routine 07/13/2017 3:[address] elevation myocardial infarction (STEMI), unspecified artery POCT GLUCOSE Routine 07/13/2017 3:01 PM EDT HEMOGRAM STAT 07/13/2017 3:00 PM EDT DIFFERENTIAL, AUTOMATED STAT 07/13/20 3:00 PM EDT CARDIAC ENZYMES ([facility]) STAT 07/13/2017 3:00 PM EDT APTT Routine 07/13/2017 3:00 PM EDT PROTHROMBIN TIME Routine 07/13/2017 3:00 PM EDT CBC (WITH DIFF) STAT 07/13/2017 3:00 PM EDT COMPREHENSIVE METABOLIC PANEL STAT 07/13/2017 3:00 PM EDT CARDIAC CATHETERIZATION Routine 07/13/20 17 2:[address] elevation myocardial infarction (STEMI), unspecified artery documented in this encounter Results * EKG 12 Lead (07/16/2017 6:45 AM EDT) Pathologist [facility] Ventricular rate 72 BPM MUSE SYSTEM Atrial Rate 72 BPM MUSE SYSTEM P-R Interval 150 ms MUSE SYSTEM QRS Duration 96 ms MUSE SYSTEM Q-T Interval 374 ms MUSE SYSTEM QTC Calculated (Bezet) 409 ms MUSE SYSTEM Calculated P [place] 30 degrees MUSE SYSTEM Calculated R [place] 21 degrees MUSE SYSTEM Calculated [place] 14 degrees MUSE SYSTEM INTERPRETATION Normal sinus rhythm Inferior-converting operator ior infarct , age undetermined Abnormal ECG When compared with ECG of 15-JUL-2017 07:31, Inferior-converting operator ior infarct is now Present Inverted T waves have replaced nonspecific T wave abnormality in Inferior leads Confirmed by MD Jennie, Severiano ([id number]) on 07/16/2017 5:00:13 PM MUSE SYSTEM 07/16/2017 6:45 AM EDT 07/16/2017 5:00 PM EDT Ky Amato MD ECG ORDERABLES MUSE SYSTEM * Differential, Automated (07/16/2017 5:16 AM EDT) Pathologist [facility] Neutrophil % 61.5 % [facility] Neutrophil Absolute 5.29 1.70 - 6.10 x10(3)/[facility] LABOR[facility] Lymph % 28.6 % [facility] Lymphocytes Abs 2.5 0.9 - 3.2 x10(3)/[facility] Monocyte % 7.7 % [facility] Monocyte Abs 0.7 0.3 - 0.9 x10(3)/[facility]OR[facility] Eos % 1.2 % [facility] Eosinophils Abs 0.1 0.0 - 0.4 x10(3)/[facility] Basophil % 0.5 % [facility] Baso Absolute 0.0 0.0 - 0.1 x10(3)/[facility] Immature Gran % 0.50 % [facility] Comment: Immature granulocytes(IG's)percentage and absolute count will include metamyelocytes, myelocytes, and promyelocytes. Blood smears from CBCs yielding IG's will be scanned manually for concordance. If this scan disagrees with the automated IG or if promyelocytes are noted, a manual differential will be performed. Immature Gran Absolute 0.04 0.00 - 0.04 x10(3)/[facility] Blood specimen (specimen) 07/16/2017 5:16 AM EDT 07/16/2017 5:31 AM EDT Narrative Resulting Agency Comment Spec In Lab Ky Amato MD HEMATOLOGY ORDERABLE S [facility] [place] [address] * (ABNORMAL) Hemogram (07/16/2017 5:16 AM EDT) White Blood Cell 8.6 4.0 - 9.5 x10(3)/mc L [facility] Red Blood Cell 3.94(L) 4.58 - 5.54 x10(6)/mc L [facility] Hemoglobin 11.6(L) 13.7 - 16.5 gm/dL [facility] Hematocrit 34.5(L) 40.5 - 48.5 % [facility] Mean Cell Volume 87.6 82.9 - 93.1 fL [facility] Mean Cell Hemoglobin 29.4 27.5 - 32.1 pg [facility] Mean Cell Hemoglobin Concentration 33.6 32.0 - 35.7 gm/dL [facility] Platelet 128(L) 145 - 357 x10(3)/ L [facility] RDW Standard Deviation 43.5 36.0 - 45.0 [facility] LAB[facility]AT[facility] RDW coefficient of variation 13.5 11.4 - 13.8 % [facility] Mean Platelet Volume 10.0 7.6 - 12.9 fL [facility] NRBC% auto 0.0 % [facility] NRBC Absolute 0.000 0.000 - 0.000 x10(3)/mc L [facility] Blood specimen (specimen) 07/16/2017 5:16 AM EDT 07/16/2017 5:31 AM EDT Narrative Resulting Agency Comment Spec In Lab Ky Amato MD HEMATOLOGY ORDERABLE S Performing Organization Address [facility]/ZIP Co de Phone Number [facility] [place] [address] * Magnesium (07/16/2017 5:16 AM EDT) Pathologist [facility] Magnesium 0.82 0.69 - 1.07 mmol/L [facility] Blood specimen (specimen) 07/16/2017 5:16 AM EDT 07/16/2017 5:31 AM EDT Narrative Resulting Agency Comment Spec In Lab Ky Amato MD CHEMISTRY ORDERABLES Performing Organization Address [facility]/ZIP Co de Phone Number [facility] [place] [address] * Basic Metabolic Panel (non-fasting) (07/16/2017 5:16 AM EDT) Glucose 107 65 - 199 mg/dL [facility] Comment:Diabetes: >=200 mg/d L plus symptoms Blood Urea Nitrogen 11 10 - 20 mg/dL [facility] Creatinine 1.05 0.80 - 1.50 mg/dL [facility] Comment: Please note that the pediatric reference intervals supplied above were not validated at [facility]. Results from pediatric patients should be interpreted in conjunction to the patient's age, height and muscle mass. Sodium 139 135 - 145 mmol/L [facility] Potassium 4.0 3.5 - 5.0 mmol/L [facility] Comment: Please note: ??Patients with WBC >100,000 may have falsely elevated Potassium levels. ??For accurate Potassium quantification in these patients send serum separator tube (gold top) for subsequent determinations. ??Contact the Clinical Chemistry Laboratory if there are any questions. Chloride 101 98 - 107 mmol/L [facility] Carbon Dioxide 26 22 - 31 mmol/L [facility] Anion Gap 12 5 - 15 mmol/L [facility] Calcium 9.0 8.5 - 10.5 mg/dL [facility] Est Glomerular Filtration Rate >60 >=60 [facility] Comment: This estimated GFR [...] the following links into your internet browser. [email or web address] Blood specimen (specimen) 07/16/2017 5:16 AM EDT 07/16/2017 5:31 AM EDT Narrative Resulting Agency Comment Spec In Lab Ky Amato MD CHEMISTRY ORDERABLES [facility] [place] [address] * ECHO COMPLETE (07/15/2017 11:23 AM EDT) EF 60 HEARTLAB SYSTEM Anatomical Region Laterality Modality Other 07/15/2017 Narrative 07/15/2017 1:08 PM EDT Procedure: ?Transthoracic Echocardiogram Patient: ?JEFF Rodney ?(Age): 1970(46y) Med Rec#: ? [id number] ?Sex: ?M ? Site Loc: ? [facility] ?Ht / Wt: ??168(cm)/173(kg) Pt. Loc: ?Echo Lab ?BSA: ?2.64 Study Date: ?? 07/15/2017 ?Pt. Type: Inpatient Tape: ? Referring: SEVERO GREEN R Referring: Ky Amato Reading: Dao Perez ([id number]) Research Worker Kitchen: Gabriel Silva [facility] Diagnosis: *ICD-10-PCS ST elevation (STEMI) myocardial infarction of unspecified site (I21.3) BP: ? 100/60 SUMMARY: 1. The left ventricular chamber size is normal. ??There is normal global left ventricular systolic function. ??The quantitative left ventricular ejection fraction by biplane Malik's method is 60%. ??There are left ventricular segmental wall motion abnormalities present at [facility] inferolateral wall, as coded in [...] E-wave Vmax ?0.9 ?m/sec ? MV deceleration [id number] ?msec ? MV A-wave Vmax ?0.5 ?m/sec [...] ? Mid-Inferior ?Normal ? Mid-Inferoseptal ?Normal ? [place]-Septal ? Normal ? [place]-Anterior ? Normal ? [place]-Lateral ?Normal ? [place]-Inferior ? Normal ? [place]-Tip ?Normal ? This report has been electronically signed by: Dao Perez MD ? 07/15/2017 13:08:41 Images reviewed and interpretation verified [facility] Cardiac Ultrasound Laboratory Procedure Note Dao Perez MD - 07/15/2017 Procedure: Transthoracic Echocardiogram Patient: JEFF Rodney (Age): 1970(46y) Med Rec#: [id number] Sex: M Site Loc: [facility] Ht / Wt: 168(cm)/173(kg) Pt. Loc: Echo Lab BSA: 2.64 Study Date: 07/15/2017 Pt. Type: Inpatient Tape: Referring: SEVERO GREEN R Referring: Ky Amato Reading: Dao Perez ([id number]) Research Worker Kitchen: Gabriel Silva ALISHA Diagnosis: *ICD-10-PCS ST elevation (STEMI) myocardial infarction of unspecified site (I21.3) BP: 100/60 SUMMARY: 1. The left ventricular chamber size is normal. There is normal global left ventricular systolic function. The quantitative left ventricular ejection fraction by biplane Malik's method is 60%. There are left ventricular segmental wall motion abnormalities present at [facility] inferolateral wall, as coded in [...] MV E-wave Vmax 0.9 m/sec MV deceleration [id number] msec MV A-wave Vmax 0.5 m/sec MV [...] Normal Mid-Posterolateral Akinetic Mid-Inferior Normal Mid-Inferoseptal Normal [place]-Septal Normal [place]-Anterior Normal [place]-Lateral Normal [place]-Inferior Normal [place]-Tip Normal This report has been electronically signed by: Dao Perez MD 07/15/2017 13:08:41 Images reviewed and interpretation verified [facility] Cardiac Ultrasound Laboratory Ky Amato MD ECHO ORDERABLES * EKG 12 Lead (07/15/2017 7:31 AM EDT) Ventricular rate 81 BPM MUSE SYSTEM Atrial Rate 81 BPM MUSE SYSTEM P-R Interval 134 ms MUSE SYSTEM QRS Duration 94 ms MUSE SYSTEM Q-T Interval 354 ms MUSE SYSTEM QTC Calculated (Bezet) 411 ms MUSE SYSTEM Calculated [place] 36 degrees MUSE SYSTEM Calculated [place] 36 degrees MUSE SYSTEM Calculated [place] 45 degrees MUSE SYSTEM INTERPRETATION Normal sinus rhythm Normal ECG When compared with ECG of 14-JUL-2017 08:54, (unconfirmed) Criteria for Inferior-posterio r infarct are no longer Present I personally reviewed the tracing and edited the fellows interpretation Confirmed by fellow MD Linda, Jerri Rodney ([id number]) on 07/15/2017 11:45:01 AM Confirmed by MEÑO, ??KY PANDEY ([id number]) on 07/15/2017 12:47:33 PM MUSE SYSTEM 07/15/2017 7:31 AM EDT 07/15/2017 12:47 PM EDT Ky Amato MD ECG ORDERABLES MUSE SYSTEM * (ABNORMAL) Differential, Automated (07/15/2017 4:37 AM EDT) Neutrophil % 65.1 % [facility] Neutrophil Absolute 6.19(H) 1.70 - 6.10 x10(3)/ L [facility] Lymph % 23.2 % [facility] Lymphocytes Abs 2.2 0.9 - 3.2 x10(3)/ L [facility] Monocyte % 9.7 % [facility] Monocyte Abs 0.9 0.3 - 0.9 x10(3)/[facility] LABORATORY Eos % 1.3 % [facility] Eosinophils Abs 0.1 0.0 - 0.4 x10(3)/[facility] LABORATORY Basophil % 0.3 % [facility] Baso Absolute 0.0 0.0 - 0.1 x10(3)/ L [facility] Immature Gran % 0.40 % [facility] Comment: Immature granulocytes(IG's)percentage and absolute count will include metamyelocytes, myelocytes, and promyelocytes. Blood smears from CBCs yielding IG's will be scanned manually for concordance. If this scan disagrees with the automated IG or if promyelocytes are noted, a manual differential will be performed. Immature Gran Absolute 0.04 0.00 - 0.04 x10(3)/ L [facility] Blood specimen (specimen) 07/15/2017 4:37 AM EDT 07/15/2017 4:46 AM EDT Narrative Resulting Agency Comment Spec In Lab Ky Amato MD HEMATOLOGY ORDERABLE S Performing Organization Address City/[facility]/ZIP Co de Phone Number [facility] [place] [address] * (ABNORMAL) Hemogram (07/15/2017 4:37 AM EDT) White Blood Cell 9.5 4.0 - 9.5 x10(3)/ L [facility] Red Blood Cell 4.24(L) 4.58 - 5.54 x10(6)/mc L [facility] Hemoglobin 12.3(L) 13.7 - 16.5 gm/dL [facility] Hematocrit 36.5(L) 40.5 - 48.5 % [facility] Mean Cell Volume 86.1 82.9 - 93.1 fL [facility] Mean Cell Hemoglobin 29.0 27.5 - 32.1 pg [facility] Mean Cell Hemoglobin Concentration 33.7 32.0 - 35.7 gm/dL [facility] Platelet 145 145 - 357 x10(3)/[facility] LABORATORY RDW Standard Deviation 42.3 36.0 - 45.0 [facility] LABORATORY RDW coefficient of variation 13.5 11.4 - 13.8 % [facility] LABORATORY Mean Platelet Volume 10.2 7.6 - 12.9 [facility] LABORATORY NRBC% auto 0.0 % [facility] LABORATORY NRBC Absolute 0.000 0.000 - 0.000 x10(3)/[facility] LABORATORY Blood specimen (specimen) 07/15/2017 4:37 AM EDT 07/15/2017 4:46 AM EDT Narrative Resulting Agency Comment Spec In Lab Ky Amato MD HEMATOLOGY ORDERABLE S [facility] [place] [address] * Magnesium (07/15/2017 4:37 AM EDT) Magnesium 0.96 0.69 - 1.07 mmol/L [facility] Blood specimen (specimen) 07/15/2017 4:37 AM EDT 07/15/2017 4:46 AM EDT Narrative Resulting Agency Comment Spec In Lab Ky Amato MD CHEMISTRY ORDERABLES [facility] [place] [address] * Basic Metabolic Panel (non-fasting) (07/15/2017 4:37 AM EDT) Glucose 114 65 - 199 mg/dL [facility] Comment:Diabetes: >=200 mg/d L plus symptoms Blood Urea Nitrogen 10 10 - 20 mg/dL [facility] Creatinine 0.88 0.80 - 1.50 mg/dL [facility] Comment: Please note that the pediatric reference intervals supplied above were not validated at [facility]. Results from pediatric patients should be interpreted in conjunction to the patient's age, height and muscle mass. Sodium 137 135 - 145 mmol/L [facility] Potassium 4.1 3.5 - 5.0 mmol/L [facility] Comment: Please note: ??Patients with WBC >100,000 may have falsely elevated Potassium levels. ??For accurate Potassium quantification in these patients send serum separator tube (gold top) for subsequent determinations. ??Contact the Clinical Chemistry Laboratory if there are any questions. Chloride 100 98 - 107 mmol/L [facility] Carbon Dioxide 25 22 - 31 mmol/L [facility] Anion Gap 12 5 - 15 mmol/L [facility] Calcium 8.9 8.5 - 10.5 mg/dL [facility] Est Glomerular Filtration Rate >60 >=60 [facility] Comment: This estimated GFR [...] the following links into your internet browser. [email or web address] Blood specimen (specimen) 07/15/2017 4:37 AM EDT 07/15/2017 4:46 AM EDT Narrative Resulting Agency Comment Spec In Lab Ky Amato MD CHEMISTRY ORDERABLES Performing Organization Address [facility] Co de Phone Number [facility] [place] [address] * EKG 12 Lead (07/14/2017 8:54 AM EDT) Ventricular rate 84 BPM MUSE SYSTEM Atrial Rate 84 BPM MUSE SYSTEM P-R Interval 148 ms MUSE SYSTEM QRS Duration 96 ms MUSE SYSTEM Q-T Interval 366 ms MUSE SYSTEM QTC Calculated (Bezet) 432 ms MUSE SYSTEM Calculated P [place] 40 degrees MUSE SYSTEM Calculated R [place] 36 degrees MUSE SYSTEM Calculated [place] 62 degrees MUSE SYSTEM INTERPRETATION Normal sinus rhythm Low voltage QRS Inferior-po sterior infarct (cited on or before 13-JUL-2017 ) Abnormal ECG When compared with ECG of 13-JUL-2017 15:02, (unconfirme d) Serial changes of evolving Inferior-po sterior infarct Present Confirmed by MD Alecia, Ruperto Moya ([id number]) on 07/15/2017 12:53:12 PM MUSE SYSTEM 07/14/2017 8:54 AM EDT 07/15/2017 12:53 PM EDT Ky Amato MD ECG ORDERABLES Performing Organization Address [facility] Co de Phone Number MUSE SYSTEM * POCT Glucose (07/14/2017 8:07 AM EDT) Glucose, POC 122 65 - 199 mg/dL [facility] Comment: Supplemental ranges: <140 mg/dL before meals <180 mg/dL all other times of the day Blood specimen (specimen) 07/14/2017 8:07 AM EDT 07/14/2017 8:07 AM EDT Ky Amato MD POINT OF CARE TEST O RDERABLES Performing Organization Address [facility]/ZIP Co de Phone Number [facility] [place] [address] * (ABNORMAL) Cardiac Enzymes (07/14/2017 3:20 AM EDT) [facility] Troponin-T 5.83(H) 0.00 - 0.00 ng/mL [facility] Comment: result rechecked-[facility] The 99th percentile for Troponin T is less than 0.01 ng/mL, any detectable cTnT concentration using this assay should be considered elevated. According to the third universal definition of myocardial infarction the following criteria with a clinical presentation consistent with acute myocardial ischemia meets the diagnosis for a myocardial infarction ([place]). Detection of a rise and/or fall of cTnT, with at least one value greater than the 99th percentile (> or = 0.01) and with at least one of the following ?? Symptoms of ischemia ?? New or presumed new significant [place]-mwqtkyo-R wave (ST-T) changes or new left bundle [...] additional sample may be indicated. Reference: Third Marion Definition of Myocardial Infarction. Journal of the [place] College [employer]iology 2012;60:1581-98 Creatine Kinase 2,165(H) 0 - 200 unit/L [facility] Blood specimen (specimen) Venous Draw / Unknown 07/14/2017 3:20 AM EDT 07/14/2017 3:33 AM EDT Narrative Resulting Agency Comment Spec In Lab Ky Amato MD CHEMISTRY ORDERABLES [facility] [place] [address] * (ABNORMAL) Differential, Automated (07/14/2017 3:20 AM EDT) [facility] Neutrophil % 81.8 % [facility] Neutrophil Absolute 9.44(H) 1.70 - 6.10 x10(3)/[facility] LABORATORY Lymph % 11.2 % [facility] Lymphocytes Abs 1.3 0.9 - 3.2 x10(3)/[facility] LABORATORY Monocyte % 6.2 % [facility] Monocyte Abs 0.7 0.3 - 0.9 x10(3)/[facility] LABORATORY Eos % 0.1 % [facility] Eosinophils Abs 0.0 0.0 - 0.4 x10(3)/[facility] LABORATORY Basophil % 0.3 % [facility] Baso Absolute 0.0 0.0 - 0.1 x10(3)/[facility] LABORATORY Immature Gran % 0.40 % [facility] Comment: Immature granulocytes(IG's)percentage and absolute count will include metamyelocytes, myelocytes, and promyelocytes. Blood smears from CBCs yielding IG's will be scanned manually for concordance. If this scan disagrees with the automated IG or if promyelocytes are noted, a manual differential will be performed. Immature Gran Absolute 0.05(H) 0.00 - 0.04 x10(3)/[facility] LABORATORY Blood specimen (specimen) 07/14/2017 3:20 AM EDT 07/14/2017 3:33 AM EDT Narrative Resulting Agency Comment Spec In Lab Ky Amato MD HEMATOLOGY ORDERABLE S [facility] [place] [address] * (ABNORMAL) Hemogram (07/14/2017 3:20 AM EDT) White Blood Cell 11.5(H) 4.0 - 9.5 x10(3)/[facility] LABORATORY Red Blood Cell 4.56(L) 4.58 - 5.54 x10(6)/[facility] LABORATORY Hemoglobin 13.5(L) 13.7 - 16.5 gm/dL [facility] Hematocrit 38.8(L) 40.5 - 48.5 % [facility] Mean Cell Volume 85.1 82.9 - 93.1 fL [facility] Mean Cell Hemoglobin 29.6 27.5 - 32.1 pg [facility] Mean Cell Hemoglobin Concentration 34.8 32.0 - 35.7 gm/dL [facility] Platelet 197 145 - 357 x10(3)/mc L [facility] RDW Standard Deviation 42.0 36.0 - 45.0 [facility] LABORATORY RDW coefficient of variation 13.6 11.4 - 13.8 % [facility] Mean Platelet Volume 10.4 7.6 - 12.9 [facility] LABORATORY NRBC% auto 0.0 % [facility] NRBC Absolute 0.000 0.000 - 0.000 x10(3)/mc L [facility] Blood specimen (specimen) 07/14/2017 3:20 AM EDT 07/14/2017 3:33 AM EDT Narrative Resulting Agency Comment Spec In Lab Ky Amato MD HEMATOLOGY ORDERABLE S Performing Organization Address [facility] Co de Phone Number [facility] [place] [address] * Magnesium (07/14/2017 3:20 AM EDT) Magnesium 0.70 0.69 - 1.07 mmol/L [facility] Blood specimen (specimen) 07/14/2017 3:20 AM EDT 07/14/2017 3:33 AM EDT Narrative Resulting Agency Comment Spec In Lab Ky Amato MD CHEMISTRY ORDERABLES Performing Organization Address [facility] Co de Phone Number [facility] [place] [address] * (ABNORMAL) Basic Metabolic Panel (non-fasting) (07/14/2017 3:20 AM EDT) Glucose 129 65 - 199 mg/dL [facility] Comment:Diabetes: >=200 mg/d L plus symptoms Blood Urea Nitrogen 11 10 - 20 mg/dL [facility] Creatinine 0.79(L) 0.80 - 1.50 mg/dL [facility] Comment: Please note that the pediatric reference intervals supplied above were not validated at [facility]. Results from pediatric patients should be interpreted in conjunction to the patient's age, height and muscle mass. Sodium 139 135 - 145 mmol/L [facility] Potassium 4.3 3.5 - 5.0 mmol/L [facility] Comment: Please note: ??Patients with WBC >100,000 may have falsely elevated Potassium levels. ??For accurate Potassium quantification in these patients send serum separator tube (gold top) for subsequent determinations. ??Contact the Clinical Chemistry Laboratory if there are any questions. Chloride 103 98 - 107 mmol/L [facility] Carbon Dioxide 22 22 - 31 mmol/L [facility] Anion Gap 14 5 - 15 mmol/L [facility] Calcium 8.6 8.5 - 10.5 mg/dL [facility] Est Glomerular Filtration Rate >60 >=60 [facility] Comment: This estimated GFR [...] the following links into your internet browser. [email or web address] Blood specimen (specimen) 07/14/2017 3:20 AM EDT 07/14/2017 3:33 AM EDT Narrative Resulting Agency Comment Spec In Lab Ky Amato MD CHEMISTRY ORDERABLES [facility] [place] [address] * TSH (07/14/2017 3:20 AM EDT) Thyroid Stimulating Hormone 1.55 0.27 - 4.20 mlU/ML [facility] Blood specimen (specimen) 07/14/2017 3:20 AM EDT 07/14/2017 3:33 AM EDT Narrative Resulting Agency Comment Spec In Lab Ky Amato MD CHEMISTRY ORDERABLES Performing Organization Address City/[facility]/ZIP Co de Phone Number [facility] [place] [address] * (ABNORMAL) Lipid Panel (07/14/2017 3:20 AM EDT) Cholesterol, Total 121 <=239 mg/dL [facility] Triglyceride 72 <=199 mg/dL [facility] HDL Cholesterol 37(L) >=40 mg/dL [facility] LDL Cholesterol 70 <=190 mg/dL [facility] Cholesterol/HDL Ratio 3.3 ratio [facility] Lipid Interpretation See Note [facility] Comment: Lipid management should be guided by a patient? s ASCVD risk, goals and preferences. ACC/AHA Guidelines recommend high intensity statin if clinical ASCVD or LDL greater than or equal to 190 mg/dL. [email or web address] Adults aged 40-75 with LDL 70-189 mg/dL should have their 10 year ASCVD risk estimated with the ACC/AHA ASCVD risk auto body estimator http://tools.acc.org/SUFKD-Ispp-Nvjieosvh/ Statin should be discussed if risk greater [...] In Lab Ky Amato MD CHEMISTRY ORDERABLES [facility] [place] [address] * Hemoglobin A1c (07/14/2017 3:20 AM EDT) Hemoglobin A1c 5.1 4.3 - 5.6 % [facility] Comment: Reference Range: 4.3 [...] Mellitus, Diabetes Care 2013; 36: Suppl. 1, S67-34 Estimated Average Glucose 100 mg/dL [facility] Comment: eAG equivalents for [...] into estimated average glucose values. ??Diabetes Care 2008:31(8):2638-2204. Blood specimen (specimen) 07/14/2017 3:20 AM EDT 07/14/2017 3:33 AM EDT Narrative Resulting Agency Comment Spec In Lab Ky Amato MD CHEMISTRY ORDERABLES [facility] [place] [address] * SCAN DOC: TAPE EDGE MACHINE OPERATOR (07/14/2017 12:00 AM EDT) Anatomical Region Laterality Modality Other Narrative 07/14/2017 12:00 AM EDT Ordered by an unspecified provider. Scanning Provider MEDIA MGR SCAN EXT O RDR/RSLT * (ABNORMAL) Cardiac Enzymes (07/13/2017 9:10 PM EDT) Troponin-T 7.00(H) 0.00 - 0.00 ng/mL [facility] Comment: Result rechecked. The 99th percentile for Troponin T is less than 0.01 ng/mL, any detectable cTnT concentration using this assay should be considered elevated. According to the third universal definition of myocardial infarction the following criteria with a clinical presentation consistent with acute myocardial ischemia meets the diagnosis for a myocardial infarction ([place]). Detection of a rise and/or fall of cTnT, with at least one value greater than the 99th percentile (> or = 0.01) and with at least one of the following ?? Symptoms of ischemia ?? New or presumed new significant LC-hdncyjx-L wave (ST-T) changes or new left bundle [...] additional sample may be indicated. Reference: Third Marion Definition of Myocardial Infarction. Journal of the [place] College of Cardiology 2012;60:1581-98 Creatine Kinase 2,820(H) 0 - 200 unit/L [facility] Blood specimen (specimen) 07/13/2017 9:10 PM EDT 07/13/2017 9:14 PM EDT Narrative Resulting Agency Comment Spec In Lab Ky Amato MD CHEMISTRY ORDERABLES [facility] [place] [address] * XR Chest PA or AP 1 [...] Glucose, POC 110 65 - 199 mg/dL [facility] Comment: Supplemental ranges: <140 mg/dL before meals <180 mg/dL all other times of the day Blood specimen (specimen) 07/13/2017 7:30 PM EDT 07/13/2017 7:30 PM EDT Ky Amato MD POINT OF CARE TEST O RDERABLES Performing Organization Address [facility] Co de Phone Number [facility] [place] [address] * EKG 12 Lead (07/13/2017 3:02 PM EDT) Ventricular rate 76 BPM MUSE SYSTEM Atrial Rate 76 BPM MUSE SYSTEM P-R Interval 158 ms MUSE SYSTEM QRS Duration 92 ms MUSE SYSTEM Q-T Interval 378 ms MUSE SYSTEM QTC Calculated (Bezet) 425 ms MUSE SYSTEM Calculated [place] 39 degrees MUSE SYSTEM Calculated [place] 51 degrees MUSE SYSTEM Calculated [place] 68 degrees MUSE SYSTEM INTERPRETATION Normal sinus rhythm Inferior-poste rior infarct , possibly acute * ACUTE [place] ?? Consider right ventricular involvement in acute inferior infarct Abnormal ECG No previous ECGs available Confirmed by MD Alecia, Ruperto Moya ([id number]) on 07/15/2017 12:53:01 PM MUSE SYSTEM 07/13/2017 3:02 PM EDT 07/15/2017 12:53 PM EDT Ky Amato MD ECG ORDERABLES Performing Organization Address [facility] Co de Phone Number MUSE SYSTEM * POCT Glucose (07/13/2017 3:01 PM EDT) Glucose, POC 113 65 - 199 mg/dL [facility] Comment: Supplemental ranges: <140 mg/dL before meals <180 mg/dL all other times of the day Blood specimen (specimen) 07/13/2017 3:01 PM EDT 07/13/2017 3:01 PM EDT Ky Amato MD POINT OF CARE TEST O RDERABLES Performing Organization Address City/[facility]/[place] [address] * (ABNORMAL) Differential, Automated (07/13/2017 3:00 PM EDT) Neutrophil % 80.0 % [facility] Neutrophil Absolute 8.14(H) 1.70 - 6.10 x10(3)/mc L [facility] Lymph % 14.4 % [facility] Lymphocytes Abs 1.5 0.9 - 3.2 x10(3)/ L [facility] Monocyte % 4.8 % [facility] Monocyte Abs 0.5 0.3 - 0.9 x10(3)/mc L [facility] Eos % 0.1 % [facility] Eosinophils Abs 0.0 0.0 - 0.4 x10(3)/mc L [facility] Basophil % 0.3 % [facility] Baso Absolute 0.0 0.0 - 0.1 x10(3)/mc L [facility] Immature Gran % 0.40 % [facility] Comment: Immature granulocytes(IG's)percentage and absolute count will include metamyelocytes, myelocytes, and promyelocytes. Blood smears from CBCs yielding IG's will be scanned manually for concordance. If this scan disagrees with the automated IG or if promyelocytes are noted, a manual differential will be performed. Immature Gran Absolute 0.04 0.00 - 0.04 x10(3)/mc L [facility] Blood specimen (specimen) 07/13/2017 3:00 PM EDT 07/13/2017 3:18 PM EDT Narrative Resulting Agency Comment Spec In Lab Ky Amato MD HEMATOLOGY ORDERABLE S Performing Organization Address City/[facility]/[place] [address] * (ABNORMAL) Hemogram (07/13/2017 3:00 PM EDT) White Blood Cell 10.2(H) 4.0 - 9.5 x10(3)/[facility] LABORATORY Red Blood Cell 4.60 4.58 - 5.54 x10(6)/[facility] LABORATORY Hemoglobin 13.4(L) 13.7 - 16.5 gm/dL [facility] Hematocrit 39.8(L) 40.5 - 48.5 % [facility] Mean Cell Volume 86.5 82.9 - 93.1 fL [facility] Mean Cell Hemoglobin 29.1 27.5 - 32.1 pg [facility] Mean Cell Hemoglobin Concentration 33.7 32.0 - 35.7 gm/dL [facility] Platelet 193 145 - 357 x10(3)/[facility] LABORATORY RDW Standard Deviation 41.3 36.0 - 45.0 [facility] LABORATORY RDW coefficient of variation 13.4 11.4 - 13.8 % [facility] Mean Platelet Volume 9.9 7.6 - 12.9 [facility] LABORATORY NRBC% auto 0.0 % [facility] NRBC Absolute 0.000 0.000 - 0.000 x10(3)/[facility] LABORATORY Blood specimen (specimen) 07/13/2017 3:00 PM EDT 07/13/2017 3:18 PM EDT Narrative Resulting Agency Comment Spec In Lab Ky Amato MD HEMATOLOGY ORDERABLE S [facility] [place] [address] * (ABNORMAL) APTT (07/13/2017 3:00 PM EDT) Partial Thromboplastin Time 138(Criti torey) 25 - 35 sec [facility] Comment: Called by: ALEXIA, Read back by: Germaine Núñez/CV, Date/Time:07/13/17 15:39. The recommended therapeutic range for full dose, unfractionated heparin at [facility] is 80 ? 114 seconds. The use of the anti-Xa (heparin) level rather than the PTT is recommended for monitoring anticoagulation intensity in critically ill patients receiving unfractionated heparin by continuous IV infusion. Blood specimen (specimen) 07/13/2017 3:00 PM EDT 07/13/2017 3:18 PM EDT Narrative Resulting Agency Comment Spec In Lab Ky Amato MD HEMATOLOGY ORDERABLE S Performing Organization Address [facility] Co de Phone Number [facility] [place] [address] * (ABNORMAL) Prothrombin Time (07/13/2017 3:00 PM EDT) Prothrombin Time 16.0(H) 12.0 - 15.0 sec [facility] Comment: An INR <2.0 [...] International Normalization Ratio 1.2(H) 0.9 - 1.1 [facility] Blood specimen (specimen) 07/13/2017 3:00 PM EDT 07/13/2017 3:18 PM EDT Narrative Resulting Agency Comment Spec In Lab Ky Amato MD HEMATOLOGY ORDERABLE S Performing Organization Address City/[facility]/ZIP Co de Phone Number [facility] [place] [address] * (ABNORMAL) Cardiac Enzymes (07/13/2017 3:00 PM EDT) Troponin-T 4.96(H) 0.00 - 0.00 ng/mL [facility] Comment: The 99th percentile for Troponin T is less than 0.01 ng/mL, any detectable cTnT concentration using this assay should be considered elevated. According to the third universal definition of myocardial infarction the following criteria with a clinical presentation consistent with acute myocardial ischemia meets the diagnosis for a myocardial infarction ([place]). Detection of a rise and/or fall of cTnT, with at least one value greater than the 99th percentile (> or = 0.01) and with at least one of the following ?? Symptoms of ischemia ?? New or presumed new significant CI-rodstih-V wave (ST-T) changes or new left bundle [...] additional sample may be indicated. Reference: Third Marion Definition of Myocardial Infarction. Journal of the [place] College of Cardiology 2012;60:1581-98 Creatine Kinase 2,712(H) 0 - 200 unit/L [facility] Blood specimen (specimen) 07/13/2017 3:00 PM EDT 07/13/2017 3:18 PM EDT Narrative Resulting Agency Comment Spec In Lab Ky Amato MD CHEMISTRY ORDERABLES [facility] [place] [address] * (ABNORMAL) Comprehensive metabolic panel (non-fasting) (07/13/2017 3:00 PM EDT) Glucose 119 65 - 199 mg/dL [facility] Comment:Diabetes: >=200 mg/d L plus symptoms Blood Urea Nitrogen 11 10 - 20 mg/dL [facility] Creatinine 1.01 0.80 - 1.50 mg/dL [facility] Comment: Please note that the pediatric reference intervals supplied above were not validated at [facility]. Results from pediatric patients should be interpreted in conjunction to the patient's age, height and muscle mass. Sodium 139 135 - 145 mmol/L [facility] Potassium 4.4 3.5 - 5.0 mmol/L [facility] Comment: Please note: ??Patients with WBC >100,000 may have falsely elevated Potassium levels. ??For accurate Potassium quantification in these patients send serum separator tube (gold top) for subsequent determinations. ??Contact the Clinical Chemistry Laboratory if there are any questions. Chloride 103 98 - 107 mmol/L [facility] Carbon Dioxide 24 22 - 31 mmol/L [facility] Anion Gap 12 5 - 15 mmol/L [facility] Calcium 8.4(L) 8.5 - 10.5 mg/dL [facility] Protein, Total 6.0(L) 6.1 - 8.0 gm/dL [facility] Albumin 3.0(L) 3.2 - 5.2 gm/dL [facility] Aspartate Aminotransferase 193(H) 0 - 39 unit/L [facility] Alanine Aminotransferase 35 0 - 55 unit/L [facility] Alkaline Phosphatase 44 40 - 120 unit/L [facility] Bilirubin, Total 0.6 0.2 - 1.3 mg/dL [facility] Est Glomerular Filtration Rate >60 >=60 [facility] Comment: This estimated GFR [...] the following links into your internet browser. [email or web address] Blood specimen (specimen) 07/13/2017 3:00 PM EDT 07/13/2017 3:18 PM EDT Narrative Resulting Agency Comment Spec In Lab Ky Amato MD CHEMISTRY ORDERABLES [facility] [place] [address] * CARDIAC CATHETERIZATION (07/13/2017 2:29 PM EDT) Anatomical Region Laterality Modality Other Narrative 07/13/2017 2:53 PM EDT ?[facility] ? Cardiac Catheterization/Intervention Report ? Patient Name: Jeff, Rolo M ? Procedure Date: 07/13/2017 ? A #: [id number] ? Primary Physician: Neftali White V ? Case #: [id number] ? File Name: [id number] ? Catheterization Order Number: [id number] ? [facility] ? Final Report [place], [place] ? Patient Name: ? Rolo Aguilar ? ID#: ?[id number] ? : ?1970 ? Procedure Date: ? July 13, 2017 ?Case #: ? [id number] ? Room: ? 5 ? Case Physician: ? Neftali White M.D. ? Start: ?12:30 ?Fellow: ? Raghavendra Hurd M.D. ? Admission: ??07/13/2017 ? Discharge: ??07/16/2017 ? Referring Physician: ??Severo Primeau, M.D. ? Procedures: ?* Coronary Angiography ?* [...] at Catheterization: ?The patient presented with: ST-Elevation IL (STEMI) or equivalent (w/i 7 ?days). [place] [employer] angina class was IV. This [...] dose administered prior to arrival in the micro lab analyst. ?Recommend continuing clopidogrel 75 mg PO daily [...] stent insertion-coronary and access site angiography. ? Neftail White M.D. ? Electronically Signed by: Neftali White M.D. ? Report Finalized: 07/13/2017 ??14:45 ? Report Last Ammended: 10/23/2017 ??13:36 ? Procedure Note Neftali White V, - 10/23/2017 [facility] Cardiac Catheterization/Intervention Report Patient Name: Rolo Aguilar Procedure Date: 07/13/2017 A #: [id number] Primary Physician: Neftali White V Case #: [id number] File Name: [id number] Catheterization Order Number: [id number] [facility] FinalReport [place], [place] Patient Name: Rolo Aguilar ID#:[id number] :1970 Procedure Date: July 13, 2017 Case [...] at Catheterization: The patient presented with: ST-Elevation IL (STEMI) or equivalent(w/i 7 days). [place] [employer] angina class was IV. Thispatient [...] priority for the procedure was Emergent. [facility] indication for the procedure was STEMI (Stable [...] Dual Antiplatelet (DAPT) Recommendations: Drug eluting stent (EMYM) inserted. P2Y12 Loading dose administered prior to arrival in the micro lab analyst. Recommend continuing clopidogrel 75 mg PO daily [...] injection ONCE PRN, Starting on Fri07/13/17 at 1252, Until Fri07/13/17 at 1342, Intra-Operative (Intra-Procedure), Routine Given 07/13/2017 12:52 PM EDT 25 mcg fentaNYL 50 mcg/mL multi-dose injection ONCE PRN, Starting on 07/13/17 at 1410, Until Fri07/13/17 at 1412, Cath (Intra-Procedure), Routine Given 07/13/2017 2:10 PM EDT 25 mcg fentaNYL 50 mcg/mL multi-dose injection ONCE PRN, Starting on 07/13/17 at 1415, Until Fri07/13/17 at 1427, Cath [...] Db Monsalve) 0820 (Given - Provider: Mavis Gamoba RN)202 (Given - Provider: Thor Bobo RN) 0833 (Given - Provider: Mavis Gamboa RN) clopidogrel (PLAVIX) tablet 75 mg 75 mg, Oral, DAILY, First dose on Fri07/14/17 at 0900, Until Discontinued, Recovery (Recovery-Hospital Unit), Routine 0906 (Given - Provider: Rachana Macias RN) 08 [...] patient request) 0543 (Given - Provider: Db Monslave)1431 (Given - Provider: Mavis Gamboa RN)2034 (Given - Provider: Thor Bobo RN)2200 (Canceled Entry - Provider: Thor Bobo RN [...] on Fri07/14/17 at 0900, Until Discontinued, Routine 09 (Given - Provider: [...] on Fri07/13/17 at 2100, Until Discontinued, Routine 09 (Given - Provider: Rachana Macias RN)2024 (Given - Provider: Db Monsalve) 08 (Given - Provider: Mavis Gamboa RN)2025 (Given - Provider: Thor Bobo RN) 0834 (Given - Provider: Mavis Gamboa RN) pantoprazole (PROTONIX) tablet 40 mg 40 mg, Oral, DAILY, First dose on 07/13/17 at 1630, Until Discontinued, DO NOT CRUSH OR OPEN 0804 (Given - Provider: Rachana Macias RN) 0822 (Given - Provider: Mavis Gamboa RN) 0834 [...] Routine documented in this encounter Care Teams Strategic Consultant Relationship Specialty Start Date End Date Severo Bowman MD [address] [place] [id number] PCP - General General Internal Medicine 04/21/1707/11 documented as of this encounter
--- OUTSIDE RECORDS SUMMARY | 2024-06-17 22:25 | XMS_ITS | Encounter Summary ---
Author Organization [facility] Address [facility] [place] [address] Care Team Providers Care College Recruiter Name Role Phone Bin Bowman MD Primary Care Provider [phone] Encounter Details Date Type Department Care Team (Late st Contact Info) Description 07/13/2017 Telephone Cardiology at [address] [address] Andi Sibley MD [facility] [place] [address] Social History Tobacco Use Types Packs/Day Years [...] Referring Provider: Dr Mir Alcantar Patient Location: [facility] Presenting Symptoms per OSH: Woke up at [...] under Dr Amato. Will first go to culture media laboratory assistant unless lab is busy with another patient. Andi Sibley MD 9:18 AM July 13, 2017 Cleaning Laborer Pager # [phone] documented in this encounter Plan of Treatment Upcoming Encounters Date Type Department Care Team (Late st Contact Info) Description 06/23/2024 10:00 AM EDT Office Visit Cardiology at [address] [place] [address] Mo Horne MD [facility] [place] [address] 09/21/2024 10:[address] [place] [phone] Rachel Carrasco MD [facility] [address] 09/21/2024 11:00 AM EST [place] [phone] Rachel Carrasco MD [facility] [place] [address] documented as of this encounter Visit Diagnoses Not on filedocumented in this encounter Care Teams College Recruiter Relationship Specialty Start Date End Date Bin Bowman MD [address] [address] PCP - General General Internal Medicine 04/21/1707/11 documented as of this encounter
== END 2024-06-17 22:09 | disposition home or self-care (01) ==
LOC: NCHCN 22:08
PROVIDERS: PCP Internal Medicine; Visit Provider Physician Assistant
DX: R30.0 Dysuria (principal); N39.0 Urinary tract infection, site not specified; B96.1 Klebsiella pneumoniae [K. pneumoniae] as the cause of diseases classified elsewhere
CPT/HCPCS: 87077; 87086; 87186

== ENCOUNTER 2024-07-21 11:22 | Outpatient (REF) | payer MEDICAID, SELFPAY ==
--- OUTSIDE RECORDS SUMMARY | 2024-07-21 11:24 | XMS_ITS | Clinical Summary ---
Author Organization [facility] Address [facility] [place] [address] Care Team Providers Care Mill Oiler Name Role Phone Amira Hooks Primary Care Provider [phone] Allergies Active Allergy Reactions Criticality Noted Date [...] Active ipratropium (ATROVENT) 21 mcg (0.03 %) Hiram, Non-Aerosol INSTILL 2 SPRAYS VIA NOSTRILS AT [...] mouth daily. 90 tablet 3 06/09/2024 Active Active Problems Problem Noted Date Diagnosed Date Intestinal metaplasia of gastric mucosa 06/07/20 Abdominal bloating 06/07/2024 Chronic constipation 06/07/2024 Screening for colon cancer 06/07/2024 Small intestinal bacterial overgrowth (SIBO) Gastroesophageal reflux disease 11/28/2023 Obstructive sleep apnea syndrome 09/18/2022 Dyspepsia 09/18/2022 Atrial flutter 02/14/2021 Bipolar disorder 01/03/2021 SVT (supraventricular tachycardia) 12/21/2020 Overview (12/21/2020): Added automatically from request for surgery [id number] PAF (paroxysmal atrial fibrillation) 12/21/2020 Overview (01/02/2021): Added automatically from request for surgery [id number] Flutter-fibrillation 2020 Atrial fibrillation 11/28/2020 H/O cardiac radiofrequency ablation 07/10/2020 Coronary disease 07/29/2019 Overview (07/29/2019): ?? 2017: STEMI. PCI of OM1. EF 60%. Many ER visits to [facility] after this. Heart palpitations 07/29/2019 Obesity 07/29/2019 Essential hypertension 07/29/2019 Encounters Date Type Department Care Team Description 07/01/2024 [place] [phone] Sally Damico RN 06/23/2024 10:00 AM EDT Office Visit Cardiology at [address] [phone] Mo Horne MD S/P ablation of atrial fibrillation 06/23/2024 Travel 06/18/2024 [place] [phone] Michelle Reed RN 06/17/2024 Travel 06/15/2024 1:30 PM EDT Clinical [place] [phone] Nephrolithiasis 06/15/2024 Travel 06/11/2024 5:41 PM EDT - 06/11/2024 6:36 PM EDT Surgery [place] [address] Rachel Carrasco MD CYSTO, REMOVAL OF STENT, FOREIGN BODY OR CALCULUS, SIMPLE (WRVU 2.81) 06/11/2024 5:27 PM EDT Anesthesia [place] [address] Larissa Rollins MD Morley, Benjamin D, MD 06/11/2024 4:14 PM EDT - 06/11/2024 7:41 PM EDT Hospital Encounter Same Day Program at [place] [address] Rachel Carrasco MD Discharge Disposition: Home 06/11/2024 Orders Only Urology [place] [address] Abelino Lazar MD Nephrolithiasis 06/09/2024 Refill Gastroenterology at [place] [address] Joan Castro MD Chronic constipation 06/07/2024 2:00 PM EDT Office Visit Gastroenterology at [place] [address] Joan Castro MD Screening for colon cancer; Chronic constipation; Abdominal bloating; Intestinal metaplasia of gastric mucosa; Dyspepsia; Heartburn 06/07/2024 Travel 06/07/2024 Refill Gastroenterology at [place] [address] Joan Castro MD Chronic constipation 06/04/2024 [place] [address] Jose Juan Anton MD 06/04/2024 [place] [address] Michelle Reed RN 06/04/2024 Telephone Urology at [place] [phone] Xenia Mcrae, FLAVIA 06/02/2024 Telephone Urology [place] [phone] Shai Mckeon PA 06/01/2024 Travel 05/24/2024 7:39 AM EDT Anesthesia Event Main Operating Room [place] [phone] Ursula Nolan MD Bloom, Charlotte E, DO 05/24/2024 7:30 AM EDT - 05/24/2024 9:45 AM EDT Surgery [place] [address] Rachel Carrasco MD CYSTOURETEROSCOPY,DIAG NOSTIC,W/ LITHOTRIPSY INC. INSERTION OF INDWELLING URETERAL STENT (WRVU 8) 05/24/2024 6:15 AM EDT - 05/24/2024 11:03 AM EDT Hospital Encounter Same Day Program at [place] [address] Rachel Carrasco MD Nephrolithiasis Discharge Disposition: Home 05/21/2024 Telephone Urology at [place] [address] Michelle Reed RN 05/21/2024 Telephone Urology at [place] [phone] Jose Juan Anton MD 05/17/2024 Telephone Urology at [place] [phone] Xenia Mcrae, RN 05/14/2024 Telephone Urology at [place] [phone] Arron Sparks MD 05/03/2024 Orders Only Urology [place] [phone] Abelino Lazar MD 04/27/2024 Orders [place] [address] Nathen Yanez MD 04/27/2024 [place] [phone] Michelle Reed RN from Last 3 Months Family History Medical History Relation Comments Coronary Artery Disease Brother Diabetes Brother Hypertension Brother Coronary Artery Disease Father Hypertension Father Coronary Artery Disease Sister Relation Status Comments Brother Father Mother Alive Sister Social History Tobacco Use Types Packs/Day Years Used Date Smoking Tobacco: Former Cigarettes 1.5 15 1 2009 Smokeless Tobacco: Former Chew Quit: 2013 Tobacco Cessation:Counseling Given: Not Answered Alcohol Use Standard Drinks/Week Comments No 0 (1 standard drink = 0.6 oz pur e alcohol) [facility] Inpatient Questions Answer Date Recorded [...] Sign Reading Time Taken Comments Blood Pressure 148/80 06/23/2024 10:14 AM EDT Pulse 75 06/23/2024 10:14 AM EDT per ecg Temperature 36.8 ??C (98.2 ??F) 06/11/2024 7:15 PM ED T Respiratory Rate 16 06/11/2024 7:15 PM EDT Oxygen Saturation 95% 06/11/2024 7:15 PM EDT Inhaled Oxygen Concentration - - Weight 210.5 kg (464 lb) 06/23/2024 10:14 AM EDT stated Height 167.6 cm (5' 6) 06/23/2024 10:14 AM EDT Body Mass Index 74.89 06/23/2024 10:14 AM EDT Plan of Treatment Upcoming Encounters Date Type Department Care Team (Late st Contact Info) Description 09/21/2024 10:[address] [place] [phone] Rachel Carrasco MD [facility] [place] [address] 09/21/2024 11:00 AM EST Office [place] [phone] Rachel Carrasco MD [facility] [place] [address] Health Maintenance Due Date Last Done Comments CT Colonography 1969 Colonoscopy 1969 Colorectal Cancer Screening 1969 FIT DNA 1969 FIT 1970 Sigmoidoscopy (10 year) with FIT yearly 1969 Sigmoidoscopy 1970 HIV screen 1987 Hepatitis C Screening 1987 Hepatitis B vaccine (0-59 yrs) (1) 1988 Tdap adult 1988 Tetanus vaccine 1988 Zoster vaccine (1 of 2) 2019 Covid-19 Vaccine ( - 2022-2 4 season) 2024 Influenza (Flu) vaccine (1 o f 1 - Influenza standard series) 07/11/2024 Diabetes Screening (HgbA1C o r Glucose) 01/04/2027 01/04/2024, 04/06/2023, 12/26/2021, Additional history exists Medical Devices Implanted Type Area Vegetable Farm Worker Device Identifier Shelf Expiration Date Model / Serial / Lot Stent Ureteral [id number] Dbl Pgtl Soft Ptfe Tria ([id number]) - [id number] Implanted:Qty : 1 on 04/09/2024 by Rachel Carrasco MD at [facility] IMPLANTS Right: [employer] 10/16/2026 [id number] / / [id number] Stent Ureteral [id number] Dbl Pgtl Firm Ptfe Tria ([id number]) - [id number] Implanted:Qty : 1 on 05/24/2024 by Rachel Carrasco MD at [facility] IMPLANTS Right: [employer] 10/16/2026 [id number] 40 / / [id number] Procedures Procedure Name Priority Date/Time Associated Diagnosis Comments EKG 12-LEAD Routine 06/23/2024 10:23 AM EDT Cystoscopy, Remv Calculus, Simple (15691) 06/11/2024 5:26 PM EDT NEPHROLITHIASIS XR FLUORO NO RAD <1HR - OR USE Routine 05/24/2024 9:46 AM EDT SPECIMEN TO PATHOLOGY Routine 05/24/2024 9:23 AM EDT KIDNEY STONE ANALYSIS Routine 05/24/2024 9:23 AM EDT MODIFIER HOLMIUM LASER Yes 05/24/2024 7:38 AM EDT Nephrolithiasis Cysto/Ureteroscopy W/Lithotripsy Inc Indwelling Stent Insertion (02598) Yes 05/24/2024 7:38 AM EDT Nephrolithiasis POCT GLUCOSE Routine 05/24/2024 6:44 AM EDT CYSTOURETEROSCOPY,DI AGNOSTIC,W/ LITHOTRIPSY INC. INSERTT Routine 05/24/2024 6:16 AM EDT Nephrolithiasis IMPLANTABLE DEVICES SCAN 05/24/2024 12:00 AM EDT LAB SCAN 05/20/2024 12:00 AM EDT BASIC METABOLIC PANEL STAT 01/04/2024 12:38 PM EST from Last 3 Months or Most Recently Relevant to Health Maintenance Results * EKG 12 Lead (06/23/2024 10:23 AM EDT) Ventricular rate 75 BPM MUSE SYSTEM Atrial Rate 80 BPM MUSE SYSTEM QRS Duration 92 ms MUSE SYSTEM Q-T Interval 404 ms MUSE SYSTEM QTC Calculated (Bezet) 451 ms MUSE SYSTEM Calculated R [place] 41 degrees MUSE SYSTEM Calculated T [place] 30 degrees MUSE SYSTEM INTERPRETATION Normal sinus rhythm Abnormal ECG When compared with ECG of 18-JUN-2023 13:49, No significant change was found Confirmed by MD De Anda Daniel ([id number]) on 07/05/2024 8:23:42 AM MUSE SYSTEM 06/23/2024 10:2 3 AM EDT 07/05/2024 8:23 AM EDT Unknown ECG ORDERABLES MUSE SYSTEM * XR Fluoro No Rad <1Hr - [...] and its performance characteristics ?determined by [facility] in a manner consistent with CLIA ?requirements. This test has not been cleared or approved by ?the U.S. Food and Drug Administration. ?Test Performed by: ?[facility] ?[address] [place] [address] ?Supervisor Refining: Pippa Traore Ph.D.; CLIA# [id number] [facility] Calculus Other / Unknown 05/24/2024 9 :23 AM EDT 05/24/2024 3:58 PM EDT Narrative Resulting Agency Comment Spec In Lab Rachel Carrasco MD LAB SEND OUT ORDERAB LES Performing Organization Address [facility] Co de Phone Number [facility] [place] [phone] * Specimen to Pathology (05/24/2024 9:23 AM EDT) AP Specimen 05/24/2024 9:23 AM EDT 05/24/2024 9:23 AM EDT Narrative [facility] - 05/24/2024 9:23 AM EDT Specimen requisition ordered. ??Separate Pathology report to follow Rachel Carrasco MD PATHOLOGY/CYTOLOGY O RDERABLES Performing Organization Address [facility] Co de Phone Number [facility] [place] [address] * POCT Glucose (05/24/2024 6:44 AM EDT) Glucose, POC 116 65 - 199 mg/dL [facility] Comment: Supplemental ranges: <140 mg/dL before meals <180 mg/dL all other times of the day Blood 05/24/2024 6:44 AM EDT 05/24/2024 6:44 AM EDT Rachel Carrasco MD POINT OF CARE TEST O RDERABLES [facility] [place] [address] * Scan Doc: Implantable Devices (05/24/2024 12:00 [...] EST) Glucose 119 65 - 199 mg/dL [facility] Comment:Diabetes: >=200 mg/d L plus symptoms Blood Urea Nitrogen 10 10 - 20 mg/dL [facility] Creatinine 0.82 0.80 - 1.50 mg/dL [facility] Sodium 142 135 - 145 mmol/L [facility] Potassium 4.4 3.5 - 5.0 mmol/L [facility] Comment: Please note: ??Patients with WBC >100,000 may have falsely elevated Potassium levels. ??For accurate Potassium quantification in these patients send serum separator tube (gold top) for subsequent determinations. ??Contact the Clinical Chemistry Laboratory if there are any questions. Chloride 105 98 - 107 mmol/L [facility] Carbon Dioxide 26 22 - 31 mmol/L [facility] Anion Gap 11 5 - 15 mmol/L [facility] Calcium 9.7 8.5 - 10.5 mg/dL [facility] Est Glomerular Filtration Rate 104 >=60 mL/min/1. 73 m?? [facility] Comment: This patient's estimated GFR [...] Pieter Rios III, MD CHEMISTRY ORDERABL ES [facility] [place] [address] from Last 3 Months or Most Recently Relevant to Health Maintenance Advance Directives Documents on File Type Date Recorded Patient Claim Manager Expl anation Personal Claim Manager 06/17/2024 2:17 PM montrell jeff * Attempt Cardiopulmonary Resuscitation - Inpatient (Latest [...] Status decision made by: Patient Care Teams Mill Oiler Relationship Specialty Start Date End Date Amira Hooks PA [address] [address] PCP - General Family Medicine 07/25/22
--- OUTSIDE RECORDS SUMMARY | 2024-07-21 11:24 | XMS_ITS | Encounter Summary ---
Author Organization [facility] Address [address] [place] [address] Care Team Providers Care Transformer Molder Name Role Phone Unavailable Primary Care Provider Unavailabl e Encounter Details Date Type Department Care Team (Late st Contact Info) Description 12/16/2020 Lab Requisition [facility] Pathology & Laboratory Medicine - [facility] [address] [place] [address] Outr Resulting Lab, Provider Social History Tobacco [...] Priority Date/Time Associated Diagnosis Comments ZZCOVID-19 TEST [facility] PCR Today 12/16/2020 1:30 EST COVID-19 TESTING Routine 12/16/2020 1:30 EST documented in this encounter Results * COVID-19 TEST [facility] LAB PCR (12/16/2020 1:30 EST) Swab ENTIRE NASOPHARYNX / Unknown 12/16/2020 1:30 EST 12/16/2020 22:23 EST Provider Outr Resulting Lab MICROBIOLOGY - GENERAL ORDERABLES [facility] [address] [place] [address] * COVID-19 TESTING (12/16/2020 1:30 EST) COVID-19 rt-PCR Result Negative Negative 12/18/2020 16:18 EST [facility] Comment: This test has not [...] developed and its performance characteristics determined by [facility]. It has not been cleared or [...] defined by the FDA Performed on the [employer] 7 Flex RT-PCR System. Performing Lab [facility] 12/18/2020 16:18 EST [facility] Swab 12/16/2020 1:30 EST 12/16/2020 22:23 EST Provider Outr Resulting Lab MICROBIOLOGY - GENERAL ORDERABLES [facility] [address] [place] [address] documented in this encounter Visit Diagnoses Not on filedocumented in this encounter
--- OUTSIDE RECORDS SUMMARY | 2024-07-21 11:24 | XMS_ITS | Continuity of Care Document ---
Author Organization [facility] Address [address] [place] [address] Care Team Providers Care Blanker Press Operator Name Role Phone [facility] Encounter [facility]CT[facility]_[place] Date(s): 07/06/24 - 07/06/[address] [address] Discharge Disposition: Home or Self Care Attending Physician: Gisela Carrillo MD Admitting Physician: Gisela Carrillo MD Referring Physician: Gisela Carrillo MD Allergies, Adverse Reactions, Alerts Substance Criticality Severity Reaction Reaction Severity Status adenosine 1 High criticality Severe Rapid heart beat Active gabapentin Unable to assess criticality Unknown Active buPROPion Unable to assess criticality Unknown Active Zoloft High criticality Severe Chest pain Ac tive 1PT had an adverse reaction HR went [...] BID, # 180 tab, 4 Refill(s), Pharmacy: [id number], 168, cm, 11/17/22 13:46:00 EST, Height/Length Dosing, 210, kg, 11/17/22 13:46:00 EST, Weight Dosing Start Date: 06/24/23 Stop Date: 09/16/24 Status: Ordered Motegrity 0 Refill(s) Start Date: 03/16/24 Status: Ordered neomycin 500 mg =, BID, 0 Refill(s) Start Date: 04/03/24 Status: Ordered Potassium Chloride (Yer-Iitt-Ewd 10) 10 mEq oral tablet, extended release 4 tabs, Oral, Daily, # 360 tab, 3 Refill(s), Pharmacy: [id number], 167.64, cm, 10/06/23 12:44:00 EST, Height, 204.12, kg, 10/06/23 12:54:00 EST, Weight Dosing Start Date: 10/31/23 Status: Ordered torsemide 40 mg oral tablet 40 mg = 1 tab, Oral, Daily, # 90 tab, 4 Refill(s), Pharmacy: [id number], 167.64, cm, 09/30/23 13:19:00 EST, Height, 206.6, kg, 09/30/23 13:30:00 EST, Weight Dosing Start Date: 09/30/23 Status: Ordered Trulicity Pen 3 mg/0.5 mL subcutaneous solution 3 mg = 0.5 mL, Subcutaneous, every week, rotate injection sites, # 2 mL, 0 Refill(s) Start Date: 09/30/23 Status: Ordered Problem List Condition Confirmation Course Effective Dates Status H ealth Status Informant Antimicrobial resistant bacteria 1 Confirmed 06/21/24 Active Atrial fibrillation Confirmed 11/28/20 Active Coronary arteriosclerosis Confirmed 11/28/20 Active Epigastric pain Confirmed Active Hypertensive disorder Confirmed 11/28/20 Active Nocturnal dyspnea Confirmed 08/11/20 Active Obstructive sleep apnea syndrome 2 Confirmed Active Supraventricular tachycardia Confirmed 11/28/20 Active 1Problem added by Rule (LH_IC_MDRO_CEPHR) following Urine Culture from Urine collected on 19-JUN-2024 12:15:00 EDT tested positive for CEPHR. 2CPAP 7-3 cm Roxanna/Adapt Procedures Procedure Date Related Diagnosis Body Site Status Cardiac ablation using fluor oscopy guidance 1 01/10/21 Completed Cardiac catheterization 2 01/10/21 Completed Tonsillectomy Completed Social History Social History Type Response Tobacco Former tobacco user Tobacco Use:. Sex Male Sex Representation Male (finding) Patient Care team information Care Team Personnel Name: Bin Boyce MD Position: No Access Member Role: Informed Provider Address: [address] Care Team Related Persons Name: MASON GRAY Insurance Providers Guarantor name: KAELA GRAY Health Plan Information #: 1 Payer: Employers Member Number: [id number] Policy Number: NA Health Plan Information #: 2 Payer: Employers Member Number: [id number] Policy Number: NA Health Plan Information #: 3 Payer: [employer] [place] [employer] Member Number: NA Policy Number: NA
--- OUTSIDE RECORDS SUMMARY | 2024-07-21 11:24 | XMS_ITS | Encounter Summary ---
Author Organization [facility] Address [address] [place] [address] Care Team Providers Care Glaucoma Specialist Name Role Phone Unavailable Primary Care Provider Unavailabl e Encounter Details Date Type Department Care Team (Late st Contact Info) Description 05/07/2020 Lab Requisition [facility] Pathology & Laboratory Medicine - [facility] [address] [place] [address] Outr Resulting Lab, Provider Social History Tobacco [...] Outr Resulting Lab MICROBIOLOGY - GENERAL ORDERABLES [facility] [address] [place] [address] * COVID-19 TESTING (05/07/2020 5:10 EDT) COVID-19 rt-PCR Result Negative Negative 05/07/2020 20:19 EDT [facility] Comment: This test has [...] history, and epidemiological information. Performed on the [employer] Fusion instrument Performing Lab [facility] Lab 05/07/2020 20:19 EDT [facility] Swab 05/07/2020 5:10 EDT 05/07/2020 16:11 EDT Provider Outr Resulting Lab MICROBIOLOGY - GENERAL ORDERABLES [facility] [address] [place] [address] documented in this encounter Visit Diagnoses Not on filedocumented in this encounter
--- OUTSIDE RECORDS SUMMARY | 2024-07-21 11:24 | XMS_ITS | Referral Summary ---
Author Organization [facility] Address [address] [place] [address] Care Team Providers Care Fbi Field Agent Name Role Phone Unavailable Primary Care Provider [...]
--- OUTSIDE RECORDS SUMMARY | 2024-07-21 11:24 | XMS_ITS | Encounter Summary ---
Author Organization [facility] Address [address] [place] [address] Care Team Providers Care Insurance Risk Surveyor Name Role Phone Unavailable Primary Care Provider Unavailabl e Encounter Details Date Type Department Care Team (Late st Contact Info) Description 12/14/2020 Lab Requisition [facility] Pathology & Laboratory Medicine - [place] [address] [place] [address] Outr Resulting Lab, Provider Social History Tobacco [...] Priority Date/Time Associated Diagnosis Comments ZZCOVID-19 TEST [facility] PCR Today 12/14/2020 7:52 EST COVID-19 TESTING Routine 12/14/2020 7:52 EST documented in this encounter Results * COVID-19 TEST [facility] PCR (12/14/2020 7:52 EST) Swab ENTIRE NASOPHARYNX / Unknown 12/14/2020 7:52 EST 12/14/2020 17:47 EST Provider Outr Resulting Lab MICROBIOLOGY - GENERAL ORDERABLES [facility] [address] [place] [address] * COVID-19 TESTING (12/14/2020 7:52 EST) COVID-19 rt-PCR Result Negative Negative 12/15/2020 15:23 EST [facility] Comment: This test has [...] developed and its performance characteristics determined by [facility]. It has not been cleared or [...] defined by the FDA Performed on the CoAxiao 7 Flex RT-PCR System. Performing Lab [facility] 12/15/2020 15:23 EST [facility] Swab 12/14/2020 7:52 EST 12/14/2020 17:47 EST Provider Outr Resulting Lab MICROBIOLOGY - GENERAL ORDERABLES [facility] [address] [place] [address] documented in this encounter Visit Diagnoses Not on filedocumented in this encounter
--- OUTSIDE RECORDS SUMMARY | 2024-07-21 11:24 | XMS_ITS | Encounter Summary ---
Author Organization [facility] [place] [address] Care Team Providers Care Environmental Laboratory Technician Name Role Phone Amira Hooks Primary Care Provider Encounter Details Date Type Department Care Team (Latest Contact Info) Description 06/23/2024 Travel Social History Tobacco Use Types Packs/Day Years Used Date Smoking Tobacco: Former Cigarettes 1.5 15 1 - 2009 Smokeless Tobacco: Former Chew Quit: 2013 Alcohol Use Standard Drinks/Week Comments No 0 (1 standard drink = 0.6 oz pur e alcohol) [facility] Inpatient Questions Answer Date Recorded Does Anyone [...] 10:[address] [place] [address] Rachel Carrasco MD [facility] [place] [address] 09/21/2024 11:00 AM EST Office [place] [address] Rachel Carrasco MD [facility] [place] [address] documented as of this encounter Visit Diagnoses Not on filedocumented in this encounter Care Teams Environmental Laboratory Technician Relationship Specialty Start Date End Date Amira Hooks PA [address] [place] [id number] PCP - General Family Medicine 07/25/22 documented as of this encounter
--- OUTSIDE RECORDS SUMMARY | 2024-07-21 11:24 | XMS_ITS | Encounter Summary ---
[place] [address] Care Team Providers Care Recruiting Administrator Name Role Phone Amira Hooks Primary Care Provider Encounter Details Date Type Department Care Team (Late st Contact Info) Description 07/01/2024 Telephone [place] [id number] Sally Damico RN Social History Tobacco Use Types Packs/Day [...] 10:[address] [place] [address] [facility] [place] [address] 09/21/2024 11:00 AM EST Office Visit [place] [address] [facility] [place] [address] documented as of this encounter Visit Diagnoses Not on filedocumented in this encounter Care Teams Recruiting Administrator Relationship Specialty Start Date End Date Amira Hooks PA [address] [place] [id number] PCP - General Family Medicine 07/25/22 documented as of this encounter
--- OUTSIDE RECORDS SUMMARY | 2024-07-21 11:24 | XMS_ITS | Continuity of Care Document ---
Author Organization [facility] Address [address] [place] [address] Care Team Providers Care Vehicle Dismantler Name Role Phone Primeau IPHCBin Primary Care Physician Encounter [facility] [id number] Date(s): 06/19/24 - 06/19/[address] [address] Encounter Diagnosis Dysuria(Discharge Diagnosis) - 06/19/24 Fever(Discharge Diagnosis) - 06/19/24 Discharge Disposition: Home or Self Care Attending Physician: Esther Hodgson MD Admitting Physician: Esther Hodgson MD Allergies, Adverse Reactions, Alerts Substance Reaction Severity Status adenosine 1 Rapid heart beat Severe Active gabapentin Unknown Active buPROPion Unknown Active Zoloft Chest pain Severe Active 1PT had an adverse reaction HR went up to 250%27s Assessment and Plan Extracted from: Title:ED Provider Note Author:Nadir Hodgson MD Date:06/19/24 Assessment/Plan 1.??Dysuria??R30.0 ??Urine is sent??for culture. ??Patient is already on Bactrim??DS??from [facility].?? Patient will try Pyridium.?? If patient worsens will return to the emergency department. Ordered: Discharge Patient, 06/19/24 14:56:00 EDT, Home Independently, Constant Indicator ?? 2.??Fever??R50.9 ??I do not know that fever is from his urinary tract infection question if this is perhaps??from some other viral illness.?? Urine??has been sent??for a culture. ??Patient will continue on his Bactrim if he worsens will return to the emergency department or see primary care provider. Ordered: Discharge Patient, 06/19/24 14:56:00 EDT, Home Independently, Constant Indicator ?? Patient Education Dysuria Follow Up With When Contact Information Follow up with primary care provider Within 1 to 2 weeks Additional Instructions: Future Appointments Diagnostic Tests Pending * Urine Culture 06/19/24 Future Scheduled Tests Laboratory* Basic Metabolic Panel [...] BID, # 180 tab, 4 Refill(s), Pharmacy: [id number], 168, cm, 11/17/22 13:46:00 EST, Height/Length Dosing, 210, kg, 11/17/22 13:46:00 EST, Weight Dosing Start Date: 06/24/23 Stop Date: 09/16/24 Status: Ordered Motegrity 0 Refill(s) Start Date: 03/16/24 Status: Ordered neomycin 500 mg =, BID, 0 Refill(s) Start Date: 04/03/24 Status: Ordered Potassium Chloride (Yvk-Orrs-Sqg 10) 10 mEq oral tablet, extended release 4 tabs, Oral, Daily, # 360 tab, 3 Refill(s), Pharmacy: [id number], 167.64, cm, 10/06/23 12:44:00 EST, Height, 204.12, kg, 10/06/23 12:54:00 EST, Weight Dosing Start Date: 10/31/23 Status: Ordered torsemide 40 mg oral tablet 40 mg = 1 tab, Oral, Daily, # 90 tab, 4 Refill(s), Pharmacy: [id number], 167.64, cm, 09/30/23 13:19:00 [...] tachycardia Confirmed 11/28/20 Active 1CPAP 7-3 cm [place]/[facility] Procedures Procedure Date Related Diagnosis Body Site Status Cardiac ablation using fluor oscopy guidance 1 01/10/21 Completed Cardiac catheterization 2 01/10/21 Completed Tonsillectomy Completed Results Laboratory List Name Date Urinalysis Microscopic 06/19/24 Urinalysis with Micro if Indicated and C ulture if Indicated 06/19/24 Most recent to oldest [Reference Range]: 1 UA Color Yellow (06/19/24 12:15 PM) UA WBC [0-3] 10-25 *ABN* (06/19/24 12:15 PM) UA Urobilinogen Positive *NA* (06/19/24 12:15 PM) UA Bili [Negative] Negative *NA* (06/19/24 12:15 PM) UA Ketones Negative *NA* (06/19/24 12:15 PM) UA RBC [0-2] 3-5 (06/19/24 12:15 PM) UA Leuk Est 1+ *ABN* (06/19/24 12:15 PM) UA Nitrite Negative *NA* (06/19/24 12:15 PM) UA Glucose [Negative] Negative *NA* (06/19/24 12:15 PM) UA Bacteria Few /HPF *ABN* (06/19/24 12:15 PM) UA Protein Negative (06/19/24 12:15 PM) UA Blood Trace *ABN* (06/19/24 12:15 PM) UA Mucous None Seen /HPF (06/19/24 12:15 PM) UA Spec Grav 1.020 *NA* (06/19/24 12:15 PM) UA Squam Epithelial [None Seen] Moderate *ABN* (06/19/24 12:15 PM) UA pH 7.0 *NA* (06/19/24 12:15 PM) UA Appear Hazy *ABN* (06/19/24 12:15 PM) UA Culture Ind?. Indicated (06/19/24 12:15 PM) Vital Signs Most recent to oldest [Reference Range]: 1 Temperature Temporal Artery [36-38 Deg C ] 37 Deg C (06/19/24 12:07 PM) Peripheral Pulse Rate [60-100 bpm] 105 b pm *HI* (06/19/24 12:07 PM) Respiratory Rate [12-24 br/min] 16 br/mi n (06/19/24 12:07 PM) Blood Pressure [90-140/60-90 mmHg] 153/8 9mmHg *HI* (06/19/24 12:07 PM) Mean Arterial Pressure, Cuff [65-140 mmH g] 110 mmHg (06/19/24 12:07 PM) Weight Estimated 202.30 kg (06/19/24 12:07 PM) Body Mass Index Estimated 71.98 kg/m2 (06/19/24 12:07 PM) Height/Length Estimated 167.64 cm (06/19/24 12:07 PM) Social History Social History Type Response Tobacco Former tobacco user Tobacco Use:. Sex Male Hospital Discharge Instructions Patient Education 06/19/2024 13:56:37 Dysuria Dysuria Dysuria is pain or discomfort during urination. The pain or discomfort may be felt in the part of the body that drains urine from the bladder (urethra) or in the surrounding tissue of the genitals. The pain may also be felt in the groin area, lower abdomen, or lower back. You may have to urinate frequently or have the sudden feeling that you have to urinate (urgency). Dysuria can affect anyone, but it is more common in females. Dysuria can be caused by many different things, including: ??? Urinary tract infection. ??? Kidney stones or bladder stones. ??? Certain STIs (sexually transmitted infections), such as chlamydia. ??? Dehydration. ??? Inflammation of the tissues of the vagina. ??? Use of certain medicines. ??? Use of certain soaps or scented products that cause irritation. Follow these instructions at home: Medicines ??? Take aanf-dio-fekgizl and prescription medicines only as told by your health care provider. ??? If you were prescribed an antibiotic medicine, take it as told by your health care provider. Donot stop taking the antibiotic even if you start to feel better. Eating and drinking ??? Drink enough fluid to keep your urine pale yellow. ??? Avoid caffeinated beverages, tea, and alcohol. These beverages can irritate the bladder and make dysuria worse. In males, alcohol may irritate the prostate. General instructions ??? Watch your condition for any changes. ??? Urinate often. Avoid holding urine for long periods of time. ??? If you are female, you should wipe from front to back after urinating or having a bowel movement. Use each piece of toilet paper only once. ??? Empty your bladder after sex. ??? Keep all follow-up visits. This is important. ??? If you had any tests done to find the cause of dysuria, it is up to you to get your test results. Ask your health care provider, or the department that is doing the test, when your results will be ready. Contact a health care provider if: ??? You have a fever. ??? You develop pain in your back or sides. ??? You have nausea or vomiting. ??? You have blood in your urine. ??? You are not urinating as often as you usually do. Get help right away if: ??? Your pain is severe and not relieved with medicines. ??? You cannot eat or drink without vomiting. ??? You are confused. ??? You have a rapid heartbeat while resting. ??? You have shaking or chills. ??? You feel extremely weak. Summary ??? Dysuria is pain or discomfort while urinating. Many different conditions can lead to dysuria. ??? If you have dysuria, you may have to urinate frequently or have the sudden feeling that you have to urinate (urgency). ??? Watch your condition for any changes. Keep all follow-up visits. ??? Make sure that you urinate often and drink enough fluid to keep your urine pale yellow. This information is not intended to replace advice given to you by your health care provider. Make sure you discuss any questions you have with your health care provider. Document Revised: 06/08/2021 Document Reviewed: 06/08/2021 [employer] Patient Education ?? 2022 [employer]. Follow Up Care 06/19/2024 11:22:45 With:Follow up with primary care provider Address: When:1 to 2 weeks Physician Emergency department Note * Esther Hodgson MD: PERFORM Event Display: ED Note Physician Authored Date: [id number] KAELA GRAY :1970 Age:53 years Sex:Male Visit Date:06/19/2024 Primary Care Physician: Gracie [facility], Bin Moe MD Basic Information Time Seen: Esther Hodgson MD / 06/19/2024 13:56 Chief Complaint Pt c/o fever today. ??Recently being treated for a UTI History Of Present Illness: Patient reports he was seen??at [facility]??on ??he has had??continued symptoms and??has felt like he had a fever today??that was??prior to arrival.?? Patient has had a lot urologically going on with a stent and stone removal done at [facility].?? Patient does not have any??ear nose or throat pain??positive slight??headache??no cough shortness of breath??no nausea no vomiting no diarrhea no??new extremity??edema??patient is here with his . Review of Systems: see hpi for ros Physical Exam Vitals & Measurements T:??37?C ??(Temporal Artery)?? HR:??105??(Peripheral)?? RR:??16?? BP:??153/89?? SpO2:??96%?? HT:??167.64??cm?? WT:??202.30??kg??(Estimated)?? BMI:??71.98?? O2 Therapy:??Room air?? General: Alert and oriented, well nourished,?No??acute distress Eye: PER,?Normal??conjunctiva, No scleral icterus HENT: Normocephalic?Normal?? hearing?? Respiratory:??Respiration??no distress??no increased work of breathing Chest: wall excursion wnl no abnormal movements no obvious deformities Back: No flank area tenderness Abdomen no significant abdominal tenderness??no rebound Musculoskeletal:?Normal?? range of motion and strength,?No??tenderness,?No??swelling Skin: Skin is warm, dry and pink,?No??rashes,?No??lesions Neurologic: Awake, alert and oriented X4 Psychiatric: Cooperative, appropriate mood and affect Medical Decision Making: For MDM please see under assessment and plan Procedure No Qualifying Data Assessment/Plan 1.??Dysuria??R30.0 ??Urine is sent??for culture. ??Patient is already on Bactrim??DS??from [facility].?? Patient will try Pyridium.?? If patient worsens will return to the emergency department. Ordered: Discharge Patient, 06/19/24 14:56:00 EDT, Home Independently, Constant Indicator ?? 2.??Fever??R50.9 ??I do not know that fever is from his urinary tract infection question if this is perhaps??from some other viral illness.?? Urine??has been sent??for a culture. ??Patient will continue on his Bactrim if he worsens will return to the emergency department or see primary care provider. Ordered: Discharge Patient, 06/19/24 14:56:00 EDT, Home Independently, Constant Indicator ?? Patient Education Dysuria Follow Up With When Contact Information Follow up with primary care provider Within 1 to 2 weeks Additional Instructions: Medication Reconciliation Unchanged apixaban (Eliquis [...] day for 90 Days. Refills: 4. ?? [id number] Milligrams 2 times a day. ?? potassium chloride (Potassium Chloride (Vsz-Bttr-Kjn 10) 10 mEq oral tablet, extended release)4 [...] Never Tobacco Former tobacco user Tobacco Use:. Family History Diabetes mellitus: Brother. Hyperlipidemia: Father and Brother. Hypertensive disorder: Father and Brother. Myocardial infarction: Father and Brother. Lab Results UA Macroscopic?? LATEST RESULTS?? HISTORICAL RESULTS?? UA Color?? 06/19/24 12:15?? Yellow?? 04/17/24?? Pale Yellow?? UA Appear?? 06/19/24 12:15?? Hazy Abnormal?? 04/17/24?? Hazy Abnormal?? UA Glucose?? 06/19/24 12:15?? Negative?? 04/17/24?? Negative?? UA Bili?? 06/19/24 12:15?? Negative?? 04/17/24?? Negative?? UA Ketones?? 06/19/24 12:15?? Negative?? 04/17/24?? Negative?? UA Spec Grav?? 06/19/24 12:15?? 1.020?? 04/17/24?? 1.020?? UA Blood?? 06/19/24 12:15?? Trace Abnormal?? 04/17/24?? 3+ Abnormal?? UA pH?? 06/19/24 12:15?? 7.0?? 04/17/24?? 6.5?? UA Protein?? 06/19/24 12:15?? Negative?? 04/17/24?? Trace Abnormal?? UA Urobilinogen?? 06/19/24 12:15?? Positive?? 04/17/24?? Normal?? UA Nitrite?? 06/19/24 12:15?? Negative?? 04/17/24?? Negative?? UA Leuk Est?? 06/19/24 12:15?? 1+ Abnormal?? 04/17/24?? 1+ Abnormal?? UA Culture Ind?.?? 06/19/24 12:15?? Indicated?? 04/17/24?? Indicated? UA Microscopic?? LATEST RESULTS?? HISTORICAL RESULTS?? UA WBC?? 06/19/24 12:15?? 10-25 Abnormal?? 04/17/24?? 3-5 Abnormal?? UA RBC?? 06/19/24 12:15?? 3-5?? 04/17/24?? 50-100?? UA Squam Epithelial?? 06/19/24 12:15?? Moderate Abnormal?? 04/17/24?? Few Abnormal?? UA Mucous?? 06/19/24 12:15?? None Seen?? 04/17/24?? Rare Abnormal?? UA Bacteria?? 06/19/24 12:15?? Few Abnormal?? 04/17/24?? Rare? Electronically Signed on 06/19/2024 15:00 EDT Esther Hodgson MD Emergency department Discharge instructions * Esther Hodgson MD: PERFORM Event Display: ED Discharge Information Authored Date: [id number] KAELA GRAY :1970 Age:53 years Sex:Male Visit Date:06/19/2024 Primary Care Physician: Bin Boyce MD Discharge Instructions We would like to thank you for allowing us to assist you with your healthcare needs. The following includes patient education materials and information regarding your injury/illness. Diagnosis from Today's Visit Dysuria Fever Discharge Vitals Temperature??(Temporal Artery) 98.6 ??F (37 ??C) Heart Rate??(Peripheral) 105 Respiratory Rate?? 16 Blood Pressure?? 153/89?? SpO2?? 96% Height?? 66.00 in (167.64 cm) Weight??(Estimated) 446.07 lb (202.30 kg) BMI?? 71.98 Allergies Zoloft??(Chest pain) adenosine??(Rapid heart beat) buPROPion gabapentin What to Do Next Instructions from Your Care Team Take Pyridium, Azo??(phenazopyridine)??up to 200 mg 3 times a day as needed??for??burning with urination. ??Continue your Bactrim??(trimethoprim/sulfamethoxazole).?? If you worsen return to the emerge ncy department or see primary care provider You Need to Schedule the Following Appointments Follow Up with??Follow up with primary care provider When:??Within 1 to 2 weeks Upcoming Scheduled Appointments Friday 10:15 AM EST ?? With: Bernarda Aguilar WHEAT FARMER Where: [facility] [address] [place] [address] [place] [address] Status: Confirmed You were treated today [...] a day Unchanged potassium chloride (Potassium Chloride (Frh-Utrc-Skp 10) 10 mEq oral tablet, extended release) 4 tabs Oral (given by mouth) Every day Atrial fibrillation Unchanged prucalopride (Motegrity) Unchanged torsemide (torsemide 40 mg oral tablet) 1 tab Oral (given by mouth) Every day Atrial fibrillation Education Materials Dysuria Dysuria is pain or discomfort during urination. The pain or discomfort may be felt in the part of the body that drains urine from the bladder (urethra) or in the surrounding tissue of the genitals. The pain may also be felt in the groin area, lower abdomen, or lower back. You may have to urinate frequently or have the sudden feeling that you have to urinate (urgency). Dysuria can affect anyone, but it is more common in females. Dysuria can be caused by many different things, including: ? Urinary tract infection. ? Kidney stones or bladder stones. ? Certain STIs (sexually transmitted infections), such as chlamydia. ? Dehydration. ? Inflammation of the tissues of the vagina. ? Use of certain medicines. ? Use of certain soaps or scented products that cause irritation. Follow these instructions at home: Medicines ? Take ydit-zgc-frldqmw and prescription medicines only as told by your health care provider. ? If you were prescribed an antibiotic medicine, take it as told by your health care provider. Do notstop taking the antibiotic even if you start to feel better. Eating and drinking ? Drink enough fluid to keep your urine pale yellow. ? Avoid caffeinated beverages, tea, and alcohol. These beverages can irritate the bladder and make dysuria worse. In males, alcohol may irritate the prostate. General instructions ? Watch your condition for any changes. ? Urinate often. Avoid holding urine for long periods of time. ? If you are female, you should wipe from front to back after urinating or having a bowel movement. Use each piece of toilet paper only once. ? Empty your bladder after sex. ? Keep all follow-up visits. This is important. ? If you had any tests done to find the cause of dysuria, it is up to you to get your test results. Ask your health care provider, or the department that is doing the test, when your results will be ready. Contact a health care provider if: ? You have a fever. ? You develop pain in your back or sides. ? You have nausea or vomiting. ? You have blood in your urine. ? You are not urinating as often as you usually do. Get help right away if: ? Your pain is severe and not relieved with medicines. ? You cannot eat or drink without vomiting. ? You are confused. ? You have a rapid heartbeat while resting. ? You have shaking or chills. ? You feel extremely weak. Summary ? Dysuria is pain or discomfort while urinating. Many different conditions can lead to dysuria. ? If you have dysuria, you may have to urinate frequently or have the sudden feeling that you have tourinate (urgency). ? Watch your condition for any changes. Keep all follow-up visits. ? Make sure that you urinate often and drink enough fluid to keep your urine pale yellow. This information is not intended to replace advice given to you by your health care provider. Make sure you discuss any questions you have with your health care provider. Document Revised: 06/08/2021 Document Reviewed: 06/08/2021 [employer] Patient Education ?? 2022 [employer]. Tests Performed Lab Test Name Test Result Date/Time UA Color YELLOW. 06/19/2024 12:15 EDT UA Appear Hazy- Clinitek 06/19/2024 12:15 EDT UA Glucose NEGATIVE 06/19/2024 12:15 EDT UA Bili NEGATIVE 06/19/2024 12:15 EDT UA Ketones NEGATIVE 06/19/2024 12:15 EDT UA Spec Grav 1.020 06/19/2024 12:15 EDT UA Blood TRACE. 06/19/2024 12:15 EDT UA pH 7.0 06/19/2024 12:15 EDT UA Protein NEGATIVE 06/19/2024 12:15 EDT UA Urobilinogen 2.0 Uro 06/19/2024 12:15 EDT UA Nitrite NEGATIVE 06/19/2024 12:15 EDT UA Leuk Est 1+ 06/19/2024 12:15 EDT UA Culture Ind?. Indicated 06/19/2024 12:15 EDT UA WBC 10-25 06/19/2024 12:15 EDT UA RBC 3-5 06/19/2024 12:15 EDT UA Squam Epithelial Moderate 06/19/2024 12:15 EDT UA Mucous None Seen 06/19/2024 12:15 EDT UA Bacteria Few 06/19/2024 12:15 EDT Patient/Log Processor Operator Signature Patient Name:KAELA GRAY I have received this information and my questions have been answered. Patient/Log Processor Operator Name: Patient/Log Processor Operator Signature: Relationship to Patient: Witness Name/Signature: Date: Electronically Signed on: 06/19/2024 14:57 EDTSigned by:BRIDGET Patient Care team information Care Team Personnel Name: Bin Boyce MD Position: No Access Member Role: Informed Provider Address: Address: [facility] [address] [place] [address]- Care Team Related Persons Name: MASON GRAY Address: Home [address] [facility], [phone]
--- OUTSIDE RECORDS SUMMARY | 2024-07-21 11:24 | XMS_ITS | Encounter Summary ---
Author Organization [facility] Address [address] [place] [address] Care Team Providers Care Entry Level Name Role Phone Unavailable Primary Care Provider Unavailabl e Encounter Details Date Type Department Care Team (Late st Contact Info) Description 04/16/2021 Lab Requisition [facility] Pathology & Laboratory Medicine - [facility] [address] [place] [address] Outr Resulting Lab, Provider Social History Tobacco [...] Outr Resulting Lab MICROBIOLOGY - GENERAL ORDERABLES [facility] [address] [place] [address] * COVID-19 TESTING (04/16/2021 11:00 EDT) COVID-19 rt-PCR Result Negative Negative 04/17/2021 1:26 EDT [facility] Comment: This test has [...] history, and epidemiological information. Performed on the Eduquiaher Fusion instrument Performing Lab [place] [facility] Lab 04/17/2021 1:26 EDT [facility] Swab 04/16/2021 11:0 0 EDT 04/16/2021 20:37 EDT Provider Outr Resulting Lab MICROBIOLOGY - GENERAL ORDERABLES [facility] [address] [place] [address] documented in this encounter Visit Diagnoses Not on filedocumented in this encounter
--- OUTSIDE RECORDS SUMMARY | 2024-07-21 11:24 | XMS_ITS | Clinical Summary ---
Author Organization [facility] Address [address] [place] [address] Care Team Providers Care Wood Crew Supervisor Name Role Phone Unavailable Primary Care Provider [...]
--- OUTSIDE RECORDS SUMMARY | 2024-07-21 11:25 | XMS_ITS | Encounter Summary ---
[place] [address] Care Team Providers Care Builder Operator Name Role Phone Amira Hooks Primary Care Provider Reason for Visit * Auth/Cert (Routine) Specialty Diagnoses / Procedures Referred By Zeyad mishra Referred To Contact Diagnoses Nephrolithiasis right ureteral stone Procedures PRO CYSTO/URETEROSCOPY W/LITHOTRIPSY INC INDWELLING STENT INSERTION CYSTOURETEROSCOPY,DIAGNOSTI C,W/ LITHOTRIPSY INC. INSERTION OF INDWELLING URETERAL STENT (WRVU 8) MODIFIER HOLMIUM LASER Rachel Carrasco MD [facility] [place] [address] [facility] Referral ID Status Reason Start Date Expiration Date Visits Re quested Visits Authorized [id number] 1 1 Encounter Details Date Type Department Care Team (Late st Contact Info) Description 05/24/2024 7:30 AM EDT - 05/24/2024 9:45 AM EDT [place] [phone] Rachel Carrasco MD [facility] [place] [address] CYSTOURETEROSCOPY,DIAG NOSTIC,W/ LITHOTRIPSY INC. INSERTION OF INDWELLING [...] blood clots The number for questions is [phone] before 5 PM weekdays and [phone] after 5 PM and weekends if questions [...] stent removal in 1 week. Please call [phone] if you do not hear from the [...] Center 06/07/2024 2:00 PM Joan Castro MD [facility] GASTRO [facility] 06/23/2024 10:00 AM Mo Hrone MD [facility] documented in this encounter Medications [...] 03/26/2024 ipratropium (ATROVENT) 21 mcg (0.03 %) [place], Non-Aerosol INSTILL 2 SPRAYS VIA NOSTRILS AT [...] 2.82) performed by Rachel Carrasco MD at [facility] MAIN OR PRO LAP, CHOLECYSTECTOMY/GRAPH N/A 07/21/2018 LAPAROSCOPIC CHOLECYSTECTOMY WITH CHOLANGIOGRAM (WRVU 11.47) performed by Colt Hewitt MD [facility] MAIN OR PRO UNLISTED LAPAROSCOPIC PX LVR N/A 07/21/2018 LAPAROSCOPIC LIVER BIOPSY (WRVU 16.52) performed by Colt Hewitt MD at [facility] MAIN OR PRO UPPER GI ENDOSCOPY, BIOPSY N/A 12/29/2017 UPPER GASTROINTESTINAL ENDOSCOPY,WITH BIOPSY SINGLE OR MULTIPLE (WRVU 2.49) performed by Yusuf Tucker MD at [facility] ENDOSCOPY PRO UPPER GI ENDOSCOPY, BIOPSY N/A 03/08/2024 EGD WITH BIOPSY (WRVU 2.39) performed by Radu Silveira MD at [facility] ENDOSCOPY PRO UPPER GI ENDOSCOPY, DIAGNOSTIC N/A 12/29/2017 EGD, UPPER GI ENDOSCOPY performed by Yusuf Tucker MD at [facility] ENDOSCOPY TONSILLECTOMY ALLERGIES Allergies Allergen [...] 3 ipratropium (ATROVENT) 21 mcg (0.03 %) [place], Non-Aerosol INSTILL 2 SPRAYS VIA NOSTRILS AT [...] Operative Note Patient Name: Rolo Aguilar : [id number] MR#: [id number] Case Date: 05/24/2024 Surgeon: Surgeons and Role: [...] Carrasco MD - 05/24/2024 8:28 AM EDT [facility] Operative Note Patient Name: Rolo Aguilar : [id number] MR#: [id number] Case Date: 05/24/2024 Surgeon: Surgeons and Role: [...] open procedures, cardiopulmonary failure, DVT, PE, Stroke, SC, and other anesthetic risks. With an understanding [...] 10:[address] [place] [place] [address] Rachel Carrasco MD [facility] [place] [address] 09/21/2024 11:00 AM EST Office Visit Urology at [facility] [place] [address] Rachel Carrasco MD [facility] [place] [address] documented as of this encounter Procedures Procedure Name Priority Date/Time Associated Diagnosis Comments XR FLUORO NO RAD <1HR - OR USE Routine 05/24/2024 9:46 AM EDT KIDNEY STONE ANALYSIS Routine 05/24/2024 9:23 AM EDT SPECIMEN TO PATHOLOGY Routine 05/24/2024 9:23 AM EDT MODIFIER HOLMIUM LASER Yes 05/24/2024 7:38 AM EDT Nephrolithiasis Cysto/Ureteroscopy W/Lithotripsy Inc Indwelling Stent Insertion (43534) Yes 05/24/2024 7:38 AM EDT Nephrolithiasis POCT [...] developed and its performance characteristics ?determined by [facility] in a manner consistent with CLIA ?requirements. This test has not been cleared or approved by ?the U.S. Food and Drug Administration. ?Test Performed by: ?[facility] ?[address] [place] [address] ?Water Truck Driver: Pippa Traore Ph.D.; CLIA# [id number] [facility] Calculus Other / Unknown 05/24/2024 9 :23 AM EDT 05/24/2024 3:58 PM EDT Narrative Resulting Agency Comment Spec In Lab Rachel Carrasco MD LAB SEND OUT ORDERAB LES Performing Organization Address [facility]/ZIP Co de Phone Number [facility] [place] [address] * Specimen to Pathology (05/24/2024 9:23 AM EDT) AP Specimen 05/24/2024 9:23 AM EDT 05/24/2024 9:23 AM EDT Narrative [facility] - 05/24/2024 9:23 AM EDT Specimen requisition ordered. ??Separate Pathology report to follow Rachel Carrasco MD PATHOLOGY/CYTOLOGY O RDERABLES Performing Organization Address [facility] Co de Phone Number [facility] [place] [address] * POCT Glucose (05/24/2024 6:44 AM EDT) Glucose, POC 116 65 - 199 mg/dL [facility] Comment: Supplemental ranges: <140 mg/dL before meals <180 mg/dL all other times of the day Blood 05/24/2024 6:44 AM EDT 05/24/2024 6:44 AM EDT Rachel Carrasco MD POINT OF CARE TEST O ORIANA Performing Organization Address [facility] Co de Phone Number [facility] [place] [address] * Scan Doc: Implantable Devices (05/24/2024 12:00 [...] (Due) documented in this encounter Care Teams Builder Operator Relationship Specialty Start Date End Date Amira Hooks PA [address] [place] [address] PCP - General Family Medicine 07/25/22 documented as of this encounter
--- OUTSIDE RECORDS SUMMARY | 2024-07-21 11:25 | XMS_ITS | Encounter Summary ---
Author Organization [facility] [place] [address] Care Team Providers Care Interior Mechanic Name Role Phone Amira Hooks Primary Care Provider Reason for Visit * Auth/Cert (Routine) Specialty Diagnoses / Procedures Referred By Zeyad mishra Referred To Contact Diagnoses Nephrolithiasis NEPHROLITHIASIS Procedures PRO CYSTOSCOPY, REMV CALCULUS, SIMPLE CYSTO, REMOVAL OF STENT, FOREIGN BODY OR CALCULUS, SIMPLE (WRVU 2.81) Rachel Carrasco MD [facility] [place] [address] [place] Referral ID Status Reason Start Date Expiration Date Visits Re quested Visits Authorized [id number] 1 1 Encounter Details Date Type Department Care Team (Late st Contact Info) Description 06/11/2024 5:41 PM EDT - 06/11/2024 6:36 PM EDT Surgery [place] [phone] Rachel Carrasco MD [facility] [place] [address] CYSTO, REMOVAL OF STENT, FOREIGN BODY OR [...] stops draining please call our office at [phone] before 5PM or [phone] after hours. Call Doctor for: Please call if you have copious blood in your urine, severe back or side pain, pain not controlled by pain medications, persistent nausea and vomiting, or for any fevers greater edhy330.3 F. The number for questions is [phone] before 5 PM weekdays and [phone] after 5 PM and weekends. Pain Medication: You may use ibuprofen (motrin, advil) or acetaminophen (tylenol) if you are experiencing pain. Follow-up: - Void trial for catheter removal on 06/15 has been requested, please call if you do not hear regarding this appointment documented in this encounter Medications at Time of Discharge Medication Sig Dispensed Refills Start Date End Date prucalopride (Motegrity) 2 mg tabletIndications:Chron ic constipation [...] 03/26/2024 ipratropium (ATROVENT) 21 mcg (0.03 %) K[place], Non-Aerosol INSTILL 2 SPRAYS VIA NOSTRILS AT [...] to 3 days. 9 tablet 06/11/2024 06/14/2024 phenazopyridine (Pyridium) 200 mg tablet Take 1 tablet by mouth 3 times daily as needed for Pain. 9 tablet 06/11/2024 06/23/2024 documented as of this encounter H&P Notes [...] 8) performed by Rachel Carrasco MD at [facility] MAIN OR PRO CYSTOSCOPY, INSERT URETERAL STENT Right 04/09/2024 CYSTO, STENT PLACEMENT (WRVU 2.82) performed by Rachel Carrasco MD at [facility] MAIN OR PRO LAP, CHOLECYSTECTOMY/GRAPH N/A 07/21/2018 LAPAROSCOPIC CHOLECYSTECTOMY WITH CHOLANGIOGRAM (WRVU 11.47) performed by Colt Hewitt MD [facility] MAIN OR PRO UNLISTED LAPAROSCOPIC PX LVR N/A 07/21/2018 LAPAROSCOPIC LIVER BIOPSY (WRVU 16.52) performed by Colt Hewitt MD at [facility] MAIN OR PRO UPPER GI ENDOSCOPY, BIOPSY N/A 12/29/2017 UPPER GASTROINTESTINAL ENDOSCOPY,WITH BIOPSY SINGLE OR MULTIPLE (WRVU 2.49) performed by Yusuf Tucker MD at [facility] ENDOSCOPY PRO UPPER GI ENDOSCOPY, BIOPSY N/A 03/08/2024 EGD WITH BIOPSY (WRVU 2.39) performed by Radu Silveira MD at [facility] ENDOSCOPY PRO UPPER GI ENDOSCOPY, DIAGNOSTIC N/A 12/29/2017 EGD, UPPER GI ENDOSCOPY performed by Yusuf Tucker MD at [facility] ENDOSCOPY TONSILLECTOMY Allergies: Allergies Allergen Reactions Adenosine [...] Carrasco MD - 06/11/2024 5:52 PM EDT [facility] Operative Note Patient Name: Rolo Aguilar : [id number] MR#: [id number] Case Date: 06/11/2024 Surgeon: Surgeons and Role: [...] 10:[address] [place] [place] [address] Rachel Carrasco MD [facility] [place] [address] 09/21/2024 11:00 AM EST Office Visit Urology at [place] [address] Rachel Carrasco MD [facility] [place] [address] documented as of this encounter Procedures Procedure Name Priority Date/Time Associated Diagnosis Comments Cystoscopy, Remv Calculus, Simple ([id number]) 06/11/2024 5:26 PM EDT NEPHROLITHIASIS documented in [...] mL Mini-Bag Plus (COMPLETED) 2 g, Intravenous, ASTROBIOLOGIST TO O.R., 1 dose, On Fri06/11/24 at [...] Routine documented in this encounter Care Teams Interior Mechanic Relationship Specialty Start Date End Date Amira Hooks PA [address] [place] [address] PCP - General Family Medicine 07/25/22 documented as of this encounter
--- OUTSIDE RECORDS SUMMARY | 2024-07-21 11:25 | XMS_ITS | Encounter Summary ---
Author Organization [facility] [address] Care Team Providers Care Product Design Specialist Name Role Phone Amira Hooks Primary Care Provider [phone] Encounter Details Date Type Department Care Team (Latest Contact Info) Description 04/09/2024 2:11 PM EDT - 04/09/2024 11:59 PM EDT Hospital Encounter XRay at [address] [place] [address] Rachel Carrasco MD [facility] [place] [address] Discharge Disposition: Home Social History Tobacco Use [...] 03/26/2024 ipratropium (ATROVENT) 21 mcg (0.03 %) [place], Non-Aerosol INSTILL 2 SPRAYS VIA NOSTRILS AT [...] 10:[address] [place] [place] [address] Rachel Carrasco MD [facility] [place] [address] 09/21/2024 11:00 AM EST [place] [address] Rachel Carrasco MD [facility] [place] [address] documented as of this encounter Procedures Procedure [...] filedocumented in this encounter Care Teams Product Design Specialist Relationship Specialty Start Date End Date Amira Hooks PA [address] [place] [address] PCP - General Family Medicine 07/25/22 documented as of this encounter
--- OUTSIDE RECORDS SUMMARY | 2024-07-21 11:25 | XMS_ITS | Encounter Summary ---
[place] [address] Care Team Providers Care Director Dental Services Name Role Phone Amira Hooks Primary Care Provider Encounter Details Date Type Department Care Team (Late st Contact Info) Description 04/14/2024 [place] [phone] Xenia Mcrae RN Social History Tobacco Use Types Packs/Day Years Used Date Smoking Tobacco: Former Cigarettes 1.5 15 1 - 2009 Smokeless Tobacco: Former Chew Quit: 2013 Alcohol Use Standard Drinks/Week Comments No 0 (1 standard drink = 0.6 oz pur e alcohol) [facility] Inpatient Questions Answer Date Recorded [...] - 04/14/2024 2:07 PM EDT Copied from [facility] #[id number]. Topic: Specialty Dept CRMs - Triage >> [...] AM [place] [address] Rachel Carrasco MD [facility] [place] [address] 09/21/2024 11:00 AM EST Office [place] [address] Rachel Carrasco MD [facility] [address] documented as of this encounter Visit Diagnoses Not on filedocumented in this encounter Care Teams Director Dental Services Relationship Specialty Start Date End Date Amira Hooks PA [address] [place] [address] PCP - General Family Medicine 07/25/22 documented as of this encounter
--- OUTSIDE RECORDS SUMMARY | 2024-07-21 11:25 | XMS_ITS | Encounter Summary ---
Author Organization [facility] [place] [address] Care Team Providers Care Senior Dot Net Developer Name Role Phone Amira Hooks Primary [...] 10:[address] [place] [address] Rachel Carrasco MD [facility] [place] [address] 09/21/2024 11:00 AM EST Office [place] [address] Rachel Carrasco MD [facility] [place] [address] documented as of this encounter Visit Diagnoses Not on filedocumented in this encounter Care Teams Senior Dot Net Developer Relationship Specialty Start Date End Date Amira Hooks PA [address] [place] [address] PCP - General Family Medicine 07/25/22 documented as of this encounter
--- OUTSIDE RECORDS SUMMARY | 2024-07-21 11:25 | XMS_ITS | Encounter Summary ---
Author Organization [facility] [place] [address] Care Team Providers Care Marine Equipment Design Engineer Name Role Phone Amira Hooks Primary Care Provider Encounter Details Date Type Department Care Team (Late st Contact Info) Description 05/21/2024 [place] [address] Jose Juan Anton MD [facility] [place] [address] Social History Tobacco Use Types Packs/Day Years [...] 10:[address] [place] [address] Rachel Carrasco MD [facility] [place] [address] 09/21/2024 11:00 AM EST Office [place] [address] Rachel Carrasco MD [facility] [place] [address] documented as of this encounter Visit Diagnoses Not on filedocumented in this encounter Care Teams Marine Equipment Design Engineer Relationship Specialty Start Date End Date Amira Hooks PA [address] [place] [address] PCP - General Family Medicine 07/25/22 documented as of this encounter
--- OUTSIDE RECORDS SUMMARY | 2024-07-21 11:25 | XMS_ITS | Encounter Summary ---
Author Organization [facility] [place] [address] Care Team Providers Care Secondary School Teacher Librarian Name Role Phone Amira Hooks Primary Care Provider [phone] Encounter Details Date Type Department Care Team (Late st Contact Info) Description 04/27/2024 [place] [address] Nathen Yanez MD [facility] [place] [address] Social History Tobacco Use Types Packs/Day Years [...] 10:[address] [place] [place] [address] Rachel Carrasco MD [facility] [place] [address] 09/21/2024 11:00 AM [place] [address] Rachel Carrasco MD [facility] [place] [address] documented as of this encounter Visit Diagnoses Not on filedocumented in this encounter Care Teams Secondary School Teacher Librarian Relationship Specialty Start Date End Date Amira Hooks PA [address] [place] [address] PCP - General Family Medicine 07/25/22 documented as of this encounter
--- OUTSIDE RECORDS SUMMARY | 2024-07-21 11:25 | XMS_ITS | Encounter Summary ---
Author Organization [facility] [place] [address] Care Team Providers Care Systems Test Engineer Name Role Phone Amira Hooks Primary Care Provider Reason for Visit * Reason Comments Atrial Fibrillation S/p ablation Encounter Details Date Type Department Care Team (Late st Contact Info) Description 06/23/2024 10:00 AM EDT Office Visit Cardiology at [address] [address] Mo Horne MD [facility] [place] [address] S/P ablation of atrial fibrillation Social History [...] 06/23/2024 10:14 AM EDT per ecg Temperature - - Respiratory Rate - - Oxygen Saturation - - Inhaled Oxygen Concentration - - Weight 210.5 kg (464 lb) 06/23/2024 10:14 AM EDT stated Height 167.6 cm (5' 6) 06/23/2024 10:14 AM EDT Body Mass Index 74.89 06/23/2024 10:14 AM EDT documented in this encounter Progress Notes * Mo Horne MD - 06/23/2024 10:00 AM EDT Images from the original note were not included. Clinical Cardiac Electrophysiology Follow Up Patient ID Rolo Aguilar [id number] Rolo Aguilar is following up in EP clinic Chief Complaint Paroxysmal atrial arrhythmias History This is a 53 y.o. male following up/being seen in clinic for paroxysmal atrial arrhythmias. He was previously seen and followed by Dr. Escobar, and we first met in September of 2022, our last visit was in Jun 2023. From that visit '.. Initially, he underwent [...] wears an Apple Watch - no arrhythmias....' At his last visit, the recommendation was for continued vigilance Since his last visit He has had a few episodes of fluttering over the last few months - these last a few seconds. He has been doing very little physical activity - recently had a mechanical fall and twisted his leg. No lightheadedness, dizziness or syncope. No chest pain. No heart failure symptoms (no edema, PND, orthopnea) Weight stable/going up/going down LVEF: Echo - LVEF 65% 2020 Ambulatory monitor: Zio 2021, no significant arrhythmias, non sustained SVT observed AAD: None Anticoagulation: apixaban Currently on bactrim - for UTI after urological procedure. Problem List Patient Active Problem List Diagnosis Intestinal metaplasia of gastric mucosa Abdominal bloating Chronic constipation Screening for colon cancer Small intestinal bacterial overgrowth (SIBO) Gastroesophageal reflux disease Obstructive sleep apnea syndrome Dyspepsia Atrial flutter Bipolar disorder SVT (supraventricular tachycardia) Added automatically from request for surgery [id number] PAF (paroxysmal atrial fibrillation) Added automatically from request for surgery [id number] Flutter-fibrillation Atrial fibrillation H/O cardiac radiofrequency ablation Coronary disease 2017: STEMI. PCI of OM1. EF 60%. Many ER visits to [facility] after this. Heart palpitations Obesity Essential hypertension Review of Systems Review of Systems Constitutional: Positive for weight loss. Cardiovascular: Positive for palpitations. Meds Current Outpatient Medications Medication Sig Dispense Refill prucalopride (Motegrity) 2 mg tablet Take 1 tablet by mouth daily. 90 tablet 3 tamsulosin (Flomax) 0.4 mg capsule Take 1 capsule by mouth daily. 90 tablet 3 sucralfate (Carafate) 1 gram tablet Take 1 tablet by mouth 4 times daily. If needed for upper abdominal discomfort and burning. Administer on an empty stomach. Take at least 2 hours before and 2 hours after other medications to prevent problems with absorption. 120 tablet [address] capsule Take 60 mg by mouth daily. apixaban (Eliquis) 5 mg Tablet Take 1 tablet by mouth 2 times daily. 180 tablet 1 atorvastatin (Lipitor) 20 mg Tablet Take 1 tablet by mouth every evening. 90 tablet 0 metoprolol succinate XL (Toprol XL) 50 mg Tablet Sustained Release 24 hr Take 1 tablet by mouth 2 times daily. 180 tablet 3 lamoTRIgine (LaMICtal) 100 mg Tablet Take 1 [...] mouth every 4 hours. 15 tablet 0 ipratropium (ATROVENT) 21 mcg (0.03 %) [place], Non-Aerosol INSTILL 2 SPRAYS VIA NOSTRILS AT BEDTIME potassium chloride ER (Klor-Con, K-Tab) 10 mEq ER tablet Take 4 tablets by mouth Daily at Noon. loratadine (Claritin) 10 mg Tablet Take 10 mg by mouth daily as needed. metoclopramide (Reglan) 5 mg tablet Take 5 mg by mouth 3 times daily as needed. furosemide (Lasix) 20 mg Tablet Take 1 tablet by mouth daily. 30 tablet 0 No current facility-administered medications for this visit. Social History Social History Socioeconomic History Marital status: Spouse name: None Number of children: None Years of education: None Highest education level: None Occupational History None Tobacco Use Smoking status: Former Current packs/day: 0.00 Average packs/day: 1.5 packs/day for 15.0 years (22.5 ttl pk-yrs) Types: Cigarettes Start date: 1994 Quit date: 2009 Years since quittin.6 Smokeless tobacco: Former Types: Chew Quit date: 2013 Vaping Use Vaping status: Former Substance and Sexual Activity Alcohol use: No Drug use: Not Currently Types: Benzodiazapines , Opioids Comment: oxycodone for back pain Sexual activity: Never Other Topics Concern None Social History Narrative None Social Determinants of Health Financial Resource Strain: Not on file Food Insecurity: Not on file Transportation Needs: Not on file Physical Activity: Not on file Intimate Partner Violence: Patient Unable To Answer (06/11/2024) DH IPV Inpatient Questions Prevent Contact with [...] for the past 24 hrs: Pulse BP 06/23/24 1014 75 148/80 Physical Exam Constitutional: Comments: Body mass index is 74.89 kg/m??. HENT: Nose: No congestion. Eyes: Conjunctiva/sclera: Conjunctivae normal. Cardiovascular: Rate and Rhythm: Normal rate. Pulses: Normal pulses. Pulmonary: Effort: Pulmonary effort is normal. Skin: General: Skin is warm. Neurological: General: No focal deficit present. Mental Status: He is alert. ECG: sinus rhythm 75 bpm, AR 180ms, QRS 100ms, QT 400ms Praful Aguilar [...] arrhythmias. For now, we recommend continued vigilance. No routine follow up planned - he knows to contact us for questions/concerns. As at prior visits, we recommend lifestyle modification, weight control, exercise, hydration etc Recommendations / Plan A) No changes to medications B) Encouraged to continue with weight loss C) Contingency for anti-arrhythmic medication usage D) Follow up PRN - he will be vigilant for arrhythmias, has an [employer] Watch MO HORNE MD Cardiac Electrophysiology [facility] [place] 20 minutes of this minute encounter were [...] AM EST [place] [address] Rachel Carrasco MD [facility] [place] [address] 09/21/2024 11:00 AM EST Office [place] [address] Rachel Carrasco MD [facility] [place] [address] documented as of this encounter Visit Diagnoses Diagnosis S/P ablation of atrial fibrillation Other postprocedural status documented in this encounter Care Teams Systems Test Engineer Relationship Specialty Start Date End Date Amira Hooks PA [address] [address] PCP - General Family Medicine 07/25/22 documented as of this encounter
--- OUTSIDE RECORDS SUMMARY | 2024-07-21 11:25 | XMS_ITS | Encounter Summary ---
[place] [address] Care Team Providers Care Environmental Compliance Inspector Name Role Phone Amira Hooks Primary Care Provider [phone] Reason for Visit * Auth/Cert (Routine) Specialty Diagnoses / Procedures Referred By Zeyad mishra Referred To Contact Diagnoses Nephrolithiasis right ureteral stone Procedures PRO CYSTO/URETEROSCOPY W/LITHOTRIPSY INC INDWELLING STENT INSERTION CYSTOURETEROSCOPY,DIAGNOSTI C,W/ LITHOTRIPSY INC. INSERTION OF INDWELLING URETERAL STENT (WRVU 8) MODIFIER HOLMIUM LASER Rachel Carrasco MD [facility] [place] [address] [facility] Referral ID Status Reason Start Date Expiration Date Visits Re quested Visits Authorized [id number] 1 1 Encounter Details Date Type Department Care Team (Latest Contact Info) Description 05/24/2024 6:15 AM EDT - 05/24/2024 11:03 AM EDT Hospital Encounter [place] [phone] Rachel Carrasco MD [facility] [place] [place] [address] Nephrolithiasis Discharge Disposition: Home Social History Tobacco [...] blood clots The number for questions is [phone] before 5 PM weekdays and [phone] after 5 PM and weekends if questions [...] stent removal in 1 week. Please call [phone] if you do not hear from the [...] Center 06/07/2024 2:00 PM Joan Castro MD [facility] GASTRO [facility] 06/23/2024 10:00 AM Mo Horne MD [facility] documented in this encounter Medications at Time [...] 03/26/2024 ipratropium (ATROVENT) 21 mcg (0.03 %) [place], Non-Aerosol INSTILL 2 SPRAYS VIA NOSTRILS AT [...] performed by Rachel Carrasco MD at [facility] MAIN OR PRO LAP, CHOLECYSTECTOMY/GRAPH N/A 07/21/2018 LAPAROSCOPIC CHOLECYSTECTOMY WITH CHOLANGIOGRAM (WRVU 11.47) performed by Colt Hewitt MD [facility] MAIN OR PRO UNLISTED LAPAROSCOPIC PX LVR N/A 07/21/2018 LAPAROSCOPIC LIVER BIOPSY (WRVU 16.52) performed by Colt Hewitt MD at [facility] MAIN OR PRO UPPER GI ENDOSCOPY, BIOPSY N/A 12/29/2017 UPPER GASTROINTESTINAL ENDOSCOPY,WITH BIOPSY SINGLE OR MULTIPLE (WRVU 2.49) performed by Yusuf Tucker MD at [facility] ENDOSCOPY PRO UPPER GI ENDOSCOPY, BIOPSY N/A 03/08/2024 EGD WITH BIOPSY (WRVU 2.39) performed by Radu Silveira MD at [facility] ENDOSCOPY PRO UPPER GI ENDOSCOPY, DIAGNOSTIC N/A 12/29/2017 EGD, UPPER GI ENDOSCOPY performed by Yusuf Tucker MD at [facility] ENDOSCOPY TONSILLECTOMY ALLERGIES Allergies Allergen Reactions Adenosine [...] 3 ipratropium (ATROVENT) 21 mcg (0.03 %) [place], Non-Aerosol INSTILL 2 SPRAYS VIA NOSTRILS AT [...] Operative Note Patient Name: Rolo Aguilar : [id number] MR#: [id number] Case Date: 05/24/2024 Surgeon: Surgeons and Role: [...] Carrasco MD - 05/24/2024 8:28 AM EDT [facility] Operative Note Patient Name: Rolo Aguilar : [id number] MR#: [id number] Case Date: 05/24/2024 Surgeon: Surgeons and Role: [...] open procedures, cardiopulmonary failure, DVT, PE, Stroke, [place], and other anesthetic risks. With an understanding [...] AM EST App[place]ment [place] [address] Rachel Carrasco MD [facility] [address] 09/21/2024 11:00 AM EST Office Visit Urology at [facility] [place] [address] Rachel Carrasco MD [facility] [place] [address] documented as of this encounter Procedures Procedure Name Priority Date/Time Associated Diagnosis Comments XR FLUORO NO RAD <1HR - OR USE Routine 05/24/2024 9:46 AM EDT KIDNEY STONE ANALYSIS Routine 05/24/2024 9:23 AM EDT SPECIMEN TO PATHOLOGY Routine 05/24/2024 9:23 AM EDT MODIFIER HOLMIUM LASER Yes 05/24/2024 7:38 AM EDT Nephrolithiasis Cysto/Ureteroscopy W/Lithotripsy Inc Indwelling Stent Insertion ([id number]) Yes 05/24/2024 7:38 AM EDT Nephrolithiasis POCT [...] and its performance characteristics ?determined by [facility] in a manner consistent with CLIA ?requirements. This test has not been cleared or approved by ?the U.S. Food and Drug Administration. ?Test Performed by: ?[facility] ?[address] [place] [address] ?Code Machine Operator: Pippa Traore Ph.D.; CLIA# [id number] [facility] Calculus Other / Unknown 05/24/2024 9 :23 AM EDT 05/24/2024 3:58 PM EDT Narrative Resulting Agency Comment Spec In Lab Rachel Carrasco MD LAB SEND OUT ORDERAB LES Performing Organization Address [facility] Co de Phone Number [facility] [place] [address] * Specimen to Pathology (05/24/2024 9:23 AM EDT) AP Specimen 05/24/2024 9:23 AM EDT 05/24/2024 9:23 AM EDT Narrative [facility] - 05/24/2024 9:23 AM EDT Specimen requisition ordered. ??Separate Pathology report to follow Rachel Carrasco MD PATHOLOGY/CYTOLOGY O RDERABLES Performing Organization Address [facility] Phone Number [facility] [place] [address] * POCT Glucose (05/24/2024 6:44 AM EDT) Glucose, POC 116 65 - 199 mg/dL [facility] Comment: Supplemental ranges: <140 mg/dL before meals <180 mg/dL all other times of the day Blood 05/24/2024 6:44 AM EDT 05/24/2024 6:44 AM EDT Rachel Carrasco MD POINT OF CARE TEST O RDERABLES Performing Organization Address [facility] de Phone Number [facility] [place] [address] * Scan Doc: Implantable Devices (05/24/2024 12:00 [...] (Due) documented in this encounter Care Teams Environmental Compliance Inspector Relationship Specialty Start Date End Date Amira Hooks PA [address] [place] [address] PCP - General Family Medicine 07/25/22 documented as of this encounter
--- OUTSIDE RECORDS SUMMARY | 2024-07-21 11:25 | XMS_ITS | Encounter Summary ---
[place] [address] Care Team Providers Care Full Time Staff Interpreter Name Role Phone Amira Hooks Primary Care Provider [phone] Reason for Referral * Diagnostic Test (Routine) - Authorized Specialty Diagnoses / Procedures Referred By Zeyad mishra Referred To Contact Radiology Diagnoses Nephrolithiasis Procedures CT Abdomen & Pelvis wo Contrast Abelino Lazar MD [facility] [place] [address] [facility] [place] [address] Referral ID Status Reason Start Date Expiration Date Visits Requested Visits Authorized [id number] Authorized Specialty Service Requested 06/11/2024 12/12/2025 1 1 Encounter Details Date Type Department Care Team (Late st Contact Info) Description 06/11/2024 [place] [address] Abelino Lazar MD [facility] [place] [address] Nephrolithiasis Social History Tobacco Use [...] 10:[address] [place] [address] Rachel Carrasco MD [facility] [place] [address] 09/21/2024 11:00 AM EST Office [place] [address] Rachel Carrasco MD [facility] [place] [address] Scheduled Orders Name Type Priority Associated Diagnoses Orde r Schedule CT Abdomen & Pelvis wo Contrast Imaging Routine Nephrolithiasis Expected: 09/11/2024, Expires: 03/13/2025 documented as of this encounter Visit Diagnoses Diagnosis Nephrolithiasis Calculus of kidney documented in this encounter Care Teams Full Time Staff Interpreter Relationship Specialty Start Date End Date Amira Hooks PA [address] [address] PCP - General Family Medicine 07/25/22 documented as of this encounter
--- OUTSIDE RECORDS SUMMARY | 2024-07-21 11:25 | XMS_ITS | Encounter Summary ---
[place] [address] Care Team Providers Care Foot Piece Assembler Name Role Phone Amira Hooks Primary Care Provider [phone] Encounter Details Date Type Department Care Team (Late st Contact Info) Description 04/09/2024 [place] [phone] Carlos Redd MD [facility] [place] [address] Social History Tobacco Use Types Packs/Day Years [...] however would not likely be able to pick up and delivery driver until tomorrow. Patient does have 2 oxycodone left over from last emergency department visit (10 mg tablets). Discussed that he can try taking 1 of these every 4 hours for pain. The patient and his are opting to go to [facility] emergency department for pain control overnight. We are available if any questions or concerns. documented in this encounter Plan of Treatment Upcoming Encounters Date Type Department Care Team (Late st Contact Info) Description 09/21/2024 10:[address] [place] [address] Rachel Carrasco MD [facility] [place] [address] 09/21/2024 11:00 AM EST [place] [address] Rachel Carrasco MD [facility] [place] [address] documented as of this encounter Visit Diagnoses Not on filedocumented in this encounter Care Teams Foot Piece Assembler Relationship Specialty Start Date End Date Amira Hooks PA [address] [address] PCP - General Family Medicine 07/25/22 documented as of this encounter
--- OUTSIDE RECORDS SUMMARY | 2024-07-21 11:25 | XMS_ITS | Encounter Summary ---
Author Organization [facility] [place] [address] Care Team Providers Care Market Researcher Name Role Phone Amira Hooks Primary Care Provider Reason for Visit * Reason Onset Date Comments Medication Refill 06/09/2024 Encounter Details Date Type Department Care Team (Late st Contact Info) Description 06/09/2024 [place]ill [place] [address] Joan Castro MD [facility] [place] [address] Chronic constipation Social History Tobacco Use Types Packs/Day Years Used Date Smoking Tobacco: Former Cigarettes 1.5 15 1 - 2009 Smokeless Tobacco: Former Chew Quit: 2013 Alcohol Use Standard Drinks/Week Comments No 0 (1 standard drink = 0.6 oz pur e alcohol) [facility] Inpatient Questions Answer Date Recorded Does Anyone [...] 10:[address] [place] [address] Rachel Carrasco MD [facility] [place] [address] 09/21/2024 11:00 AM EST [place] [address] Rachel Carrasco MD [facility] [place] [address] documented as of this encounter Visit Diagnoses Diagnosis Chronic constipation Unspecified constipation documented in this encounter Care Teams Market Researcher Relationship Specialty Start Date End Date Amira Hooks PA [address] [address] PCP - General Family Medicine 07/25/22 documented as of this encounter
--- OUTSIDE RECORDS SUMMARY | 2024-07-21 11:25 | XMS_ITS | Encounter Summary ---
[place] [address] Care Team Providers Care Analysis Manager Name Role Phone Amira Hooks Primary Care Provider Reason for Visit * Auth/Cert (Routine) Specialty Diagnoses / Procedures Referred By Zeyad mishra Referred To Contact Diagnoses Nephrolithiasis right ureteral stone Procedures PRO CYSTO/URETEROSCOPY W/LITHOTRIPSY INC INDWELLING STENT INSERTION CYSTOURETEROSCOPY,DIAGNOSTI C,W/ LITHOTRIPSY INC. INSERTION OF INDWELLING URETERAL STENT (WRVU 8) MODIFIER HOLMIUM LASER Rachel Carrasco MD [facility] [place] [address] [facility] Referral ID Status Reason Start Date Expiration Date Visits Re quested Visits Authorized [id number] 1 1 Encounter Details Date Type Department Care Team (Late st Contact Info) Description 05/24/2024 7:39 AM EDT Anesthesia Event [place] [phone] Ursula Nolan MD [facility] [place] [address] Swetha Zhou DO [facility] [place] [address] Anesthesia Record Procedure Summary Procedure Name Responsible Anesthesiologist Anesthesia Start Time Anesthesia Stop Time CYSTOURETEROSCOPY,RBADLEY LYNNW/ LITHOTRIPSY INC. INSERTION OF INDWELLING URETERAL STENT [...] Type Details Placement Removal PIV 05/24/24; 0651; misz-xaq-evymhe catheter system; 20 gauge; median cubital vein (antecubital fossa), right; no longer indicated, removed per policy/procedure, catheter/device intact; 05/24/24; 1100 05/24/24 0651 by Gerald Narajno RN 05/24/24 1100 by Edwige Giang, FLAVIA [...] 05/24/24 0828 by Ivonne Fuentes RN 06/11/24 175 by Aileen Thapa RN documented in this [...] Procedure Summary Date: 05/24/24 Room / Location: [facility] OR [address] [place] [address] MAIN OR Anesthesia Start: 738 Anesthesia Stop: 949 Procedures: CYSTOURETEROSCOPY,DIAGNOSTIC,W/ LITHOTRIPSY INC. INSERTION OF INDWELLING URETERAL STENT (WRVU 8) (Right: Ureter) MODIFIER HOLMIUM LASER (Ureter) Diagnosis: Nephrolithiasis (right ureteral stone) Surgeons: Rachel Carrasco MD Responsible Provider: Ursula Nolan MD Anesthesia Type: general ASA Status: 3 All Anesthesia Providers: Anesthesiologist: Ursula Nolan MD Pinion Staker: Swetha Zhou, DO Vitals Value Taken Time BP 123/69 05/24/24 1015 Temp 35.9 ??C (96.6 ??F) 05/24/24 0944 Pulse 78 05/24/24 1030 Resp 21 05/24/24 1030 SpO2 96 % 05/24/24 1030 Pain Level 0 05/24/24 1000 Patient Location: PACU/SDP Level of Consciousness: Awake [...] 2.82) performed by Rachel Carrasco MD at [facility] MAIN OR PRO LAP, CHOLECYSTECTOMY/GRAPH N/A 07/21/2018 LAPAROSCOPIC CHOLECYSTECTOMY WITH CHOLANGIOGRAM (WRVU 11.47) performed by Colt Hewitt MD [facility] MAIN OR PRO UNLISTED LAPAROSCOPIC PX LVR N/A 07/21/2018 LAPAROSCOPIC LIVER BIOPSY (WRVU 16.52) performed by Colt Hewitt MD at [facility] MAIN OR PRO UPPER GI ENDOSCOPY, BIOPSY N/A 12/29/2017 UPPER GASTROINTESTINAL ENDOSCOPY,WITH BIOPSY SINGLE OR MULTIPLE (WRVU 2.49) performed by Yusuf Tucker MD at [facility] ENDOSCOPY PRO UPPER GI ENDOSCOPY, BIOPSY N/A 03/08/2024 EGD WITH BIOPSY (WRVU 2.39) performed by Radu Silveira MD at [facility] ENDOSCOPY PRO UPPER GI ENDOSCOPY, DIAGNOSTIC N/A 12/29/2017 EGD, UPPER GI ENDOSCOPY performed by Yusuf Tucker MD at [facility] ENDOSCOPY TONSILLECTOMY Social History Tobacco [...] 10:[address] [place] [address] Rachel Carrasco MD [facility] [place] [address] 09/21/2024 11:00 AM EST Office Visit Urology at [facility] [place] [phone] Rachel Carrasco MD [facility] [place] [address] documented as of this encounter Visit Diagnoses [...] mg documented in this encounter Care Teams Analysis Manager Relationship Specialty Start Date End Date Amira Hooks PA [address] [address] PCP - General Family Medicine 07/25/22 documented as of this encounter
--- OUTSIDE RECORDS SUMMARY | 2024-07-21 11:25 | XMS_ITS | Encounter Summary ---
Author Organization [facility] [address] Care Team Providers Care Furniture Polisher Name Role Phone Amira Hooks Primary Care Provider Encounter Details Date Type Department Care Team (Latest Contact Info) Description 06/17/2024 Travel Social History Tobacco Use Types Packs/Day Years Used Date Smoking Tobacco: Former Cigarettes 1.5 15 1 - 2009 Smokeless Tobacco: Former Chew Quit: 2013 Alcohol Use Standard Drinks/Week Comments No 0 (1 standard drink = 0.6 oz pur e alcohol) [facility] Inpatient Questions Answer Date Recorded Does Anyone [...] 10:[address] [place] [place] [address] Rachel Carrasco MD [facility] [place] [address] 09/21/2024 11:00 AM EST [place] [address] Rachel Carrasco MD [facility] [place] [address] documented as of this encounter Visit Diagnoses Not on filedocumented in this encounter Care Teams Furniture Polisher Relationship Specialty Start Date End Date Amira Hooks PA [address] [place] [address] PCP - General Family Medicine 07/25/22 documented as of this encounter
--- OUTSIDE RECORDS SUMMARY | 2024-07-21 11:25 | XMS_ITS | Encounter Summary ---
Author Organization [facility] [place] [address] Care Team Providers Care Envelope Addresser Name Role Phone Amira Hooks Primary Care Provider Reason for Visit * Auth/Cert (Routine) Specialty Diagnoses / Procedures Referred By Zeyad mishra Referred To Contact Diagnoses Nephrolithiasis NEPHROLITHIASIS Procedures PRO CYSTOSCOPY, REMV CALCULUS, SIMPLE CYSTO, REMOVAL OF STENT, FOREIGN BODY OR CALCULUS, SIMPLE (WRVU 2.81) Rachel Carrasco MD [facility] [place] [address] [facility] [place] Referral ID Status Reason Start Date Expiration Date Visits Re quested Visits Authorized [id number] 1 1 Encounter Details Date Type Department Care Team (Late st Contact Info) Description 06/11/2024 5:27 PM EDT Anesthesia Event [place] [address] Larissa Rollins MD [facility] [place] [address] Jude Jenkins MD [facility] [place] [address] Anesthesia Record Procedure Summary Procedure Name Responsible Anesthesiologist Anesthesia Start Time Anesthesia Stop Time CYSTO, REMOVAL OF STENT, FOREIGN BODY OR CALCULUS, SIMPLE (WRVU 2.81) (Right: Ureter) Larissa Rollins MD 06/11/24 1727 06/11/24 1821 Events Date Time Event Comment 06/11/2024 1656 1727 AN Verify 1727 Start 1727 An Start Data 1738 An Induction 1740 An Intubation 1742 Anesthesia Ready 1812 Extubation/LMA Out 181 an stop data 182 [...] 1937 06/11/24 163 by Zeus Norris RN 06/11/241936 by Christina Longoria RN ETT Mask Ventilation: No t Attempted [...] Procedure Summary Date: 06/11/24 Room / Location: [facility] OR [address] [place] [address] MAIN OR Anesthesia Start: 1726 Anesthesia Stop: 1820 Procedure: CYSTO, REMOVAL OF STENT, FOREIGN BODY OR CALCULUS, SIMPLE (WRVU 2.81) (Right: Ureter) Diagnosis: (NEPHROLITHIASIS) Surgeons: Rachel Carrasco MD Responsible Provider: Larissa Rollins MD Anesthesia Type: general ASA Status: 3 All Anesthesia Providers: Anesthesiologist: Ursula Nolan MD; Larissa Rollins MD AUTOMOBILE MECHANIC: Álvaro Henry CRNA Vitals Value Taken Time BP 150/78 06/11/24 1845 Temp 36.1 ??C (97 ??F) 06/11/24 1815 Pulse Resp 16 06/11/24 1815 SpO2 95 % 06/11/24 1856 Pain Level 0 06/11/24 1830 Vitals shown include unfiled device data. Patient Location: PACU/MTP Level of Consciousness: Conscious but Sleepy Pain [...] 8) performed by Rachel Carrasco MD at [facility] MAIN OR ??? PRO CYSTOSCOPY, INSERT URETERAL STENT Right 04/09/2024 CYSTO, STENT PLACEMENT (WRVU 2.82) performed by Rachel Carrasco MD at [facility] OR ??? PRO LAP, CHOLECYSTECTOMY/GRAPH N/A 07/21/2018 LAPAROSCOPIC CHOLECYSTECTOMY WITH CHOLANGIOGRAM (WRVU 11.47) performed by Colt Hewitt MD [facility] OR ??? PRO UNLISTED LAPAROSCOPIC PX LVR N/A 07/21/2018 LAPAROSCOPIC LIVER BIOPSY (WRVU 16.52) performed by Colt Hewitt MD at [facility] MAIN OR ??? PRO UPPER GI ENDOSCOPY, BIOPSY N/A 12/29/2017 UPPER GASTROINTESTINAL ENDOSCOPY,WITH BIOPSY SINGLE OR MULTIPLE (WRVU 2.49) performed by Yusuf Tucker MD at [facility] ENDOSCOPY ??? PRO UPPER GI ENDOSCOPY, BIOPSY N/A 03/08/2024 EGD WITH BIOPSY (WRVU 2.39) performed by Radu Silveira MD at [facility] ENDOSCOPY ??? PRO UPPER GI ENDOSCOPY, DIAGNOSTIC N/A 12/29/2017 EGD, UPPER GI ENDOSCOPY performed by Yusuf Tucker MD at [facility] ENDOSCOPY ??? TONSILLECTOMY Social History Tobacco Use ??? Smoking status: Former Current packs/day: 0.00 Average packs/day: 1.5 packs/day for 15.0 years (22.5 ttl pk-yrs) Types: Cigarettes Start date: 1994 Quit date: 2010 Years since quittin.5 ??? Smokeless tobacco: Former [...] 10:[address] [place] [place] [address] Rachel Carrasco MD [facility] [place] [address] 09/21/2024 11:00 AM EST [place] [address] Rachel Carrasco MD [facility] [place] [address] documented as of this encounter Visit Diagnoses Not on filedocumented in this encounter Administered Medications Inactive Administered Medications - up to 3 most recent administrations Medication Order MAR Action Action Date Dose Rate Site ceFAZolin (Ancef) 2 g vial attach to sodium chloride 0.9% 100 mL Mini-Bag Plus 2 g, Intravenous, REVENUE COLLECTOR TO O.R., 1 dose, On Fri06/11/24 at [...] mg documented in this encounter Care Teams Envelope Addresser Relationship Specialty Start Date End Date Amira Hooks PA [address] [place] [address] PCP - General Family Medicine 07/25/22 documented as of this encounter
--- OUTSIDE RECORDS SUMMARY | 2024-07-21 11:25 | XMS_ITS | Encounter Summary ---
Author Organization [facility] [place] [address] Care Team Providers Care Drywall Worker Name Role Phone Amira Hooks Primary Care Provider [phone] Encounter Details Date Type Department Care Team [...] 10:[address] [place] [place] [address] Rachel Carrasco MD [facility] [place] [address] 09/21/2024 11:00 AM EST [place] [address] Rachel Carrasco MD [facility] [place] [address] documented as of this encounter Visit Diagnoses Not on filedocumented in this encounter Care Teams Drywall Worker Relationship Specialty Start Date End Date Amira Hooks PA [address] [place] [address] PCP - General Family Medicine 07/25/22 documented as of this encounter
--- OUTSIDE RECORDS SUMMARY | 2024-07-21 11:25 | XMS_ITS | Encounter Summary ---
Author Organization [facility] [place] [address] Care Team Providers Care Spike Machine Heater Name Role Phone Amira Hooks Primary Care Provider Reason for Visit * Reason Onset Date Comments Medication Refill 06/07/2024 Encounter Details Date Type Department Care Team (Late st Contact Info) Description 06/07/2024 Ref[place] [address] Joan Castro MD [facility] [place] [address] Chronic constipation Social History Tobacco Use Types [...] 10:[address] [place] [place] [address] Rachel Carrasco MD [facility] [place] [address] 09/21/2024 11:00 AM EST [place] [address] Rachel Carrasco MD [facility] [address] documented as of this encounter Visit Diagnoses Diagnosis Chronic constipation Unspecified constipation documented in this encounter Care Teams Spike Machine Heater Relationship Specialty Start Date End Date Amira Hooks PA [address] [address] PCP - General Family Medicine 07/25/22 documented as of this encounter
--- OUTSIDE RECORDS SUMMARY | 2024-07-21 11:25 | XMS_ITS | Encounter Summary ---
[place] [address] Care Team Providers Care Guard Lieutenant Name Role Phone Amira Hooks Primary Care Provider [phone] Reason for Visit * Auth/Cert (Routine) Specialty Diagnoses / Procedures Referred By Zeyad mishra Referred To Contact Diagnoses LEFT URETERAL STONE/HEMATURIA WORK UP Procedures PRO CYSTOURETHROSCOPY PRO PLMT URTRL STENT PRQ PRE-EXISTING NFROS TRACT PRO CYSTO/URETERO/PYELOSCOPY W/LITHOTRIPSY CYSTO, CYSTOURETHROSCOPY, DIAGNOSTIC (WRVU 1.53) PLCMNT URETERAL STENT, PERC, IMG GUIDANCE; EXISTING NEPH TRACT (WRVU 3.96) CYSTOURETEROSCOPY, LITHOTRIPSY (WRVU 7.5) MODIFIER HOLMIUM LASER Rachel Carrasco MD [facility] [place] [address] [facility] Referral ID Status Reason Start Date Expiration Date Visits Re quested Visits Authorized [id number] 1 1 Encounter Details Date Type Department Care Team (Late st Contact Info) Description 04/09/2024 11:48 AM EDT - 04/09/2024 2:11 PM EDT Surgery [place] [address] Rachel Carrasco MD [facility] [place] [address] CYSTO, STENT PLACEMENT (WRVU 2.82) Social History [...] to urinate please call our office at [phone] before 5PM or [phone] after hours. Call Doctor for: Please call if you have copious blood in your urine, severe back or side pain, pain not controlled by pain medications, persistent nausea and vomiting, or for any fevers greater [id number] F. The number for questions is [phone] before 5 PM weekdays and [phone] after 5 PM and weekends. Pain Medication: [...] 03/26/2024 ipratropium (ATROVENT) 21 mcg (0.03 %) [place], Non-Aerosol INSTILL 2 SPRAYS VIA NOSTRILS AT [...] performed by Colt Hewitt MD [facility] MAIN OR PRO UNLISTED LAPAROSCOPIC PX LVR N/A 07/21/2018 LAPAROSCOPIC LIVER BIOPSY (WRVU 16.52) performed by Colt Hewitt MD at [facility] MAIN OR PRO UPPER GI ENDOSCOPY, BIOPSY N/A 12/29/2017 UPPER GASTROINTESTINAL ENDOSCOPY,WITH BIOPSY SINGLE OR MULTIPLE (WRVU 2.49) performed by Yusuf Tucker MD at [facility] ENDOSCOPY PRO UPPER GI ENDOSCOPY, BIOPSY N/A 03/08/2024 EGD WITH BIOPSY (WRVU 2.39) performed by Radu Silveira MD at [facility] ENDOSCOPY PRO UPPER GI ENDOSCOPY, DIAGNOSTIC N/A 12/29/2017 EGD, UPPER GI ENDOSCOPY performed by Yusuf Tucker MD at [facility] ENDOSCOPY TONSILLECTOMY Allergies: Allergies Allergen Reactions Adenosine [...] Carrasco MD - 04/09/2024 11:54 AM EDT [facility] [place] Patient Name: Rolo Aguilar : [id number] MR#: [id number] Case Date: 04/09/2024 Surgeon: Surgeons and Role: [...] 10:[address] [place] [place] [address] Rachel Carrasco MD [facility] [place] [address] 09/21/2024 11:00 AM EST [place] [address] Rachel Carrasco MD [facility] [place] [address] documented as of this encounter Procedures Procedure Name Priority Date/Time Associated Diagnosis Comments XR FLUORO NO RAD <1HR - OR USE Routine 04/09/2024 2:12 PM EDT Cystoscopy, Insert Ureteral Stent (24432) Yes 04/09/2024 11:16 AM EDT LEFT URETERAL [...] CHEMISTRY ORDERABLES [facility] [place] [address] * Scan Doc: Implantable Devices (04/09/2024 12:00 [...] needed.) documented in this encounter Care Teams Guard Lieutenant Relationship Specialty Start Date End Date Amira Hooks PA [address] [address] PCP - General Family Medicine 07/25/22 documented as of this encounter
--- OUTSIDE RECORDS SUMMARY | 2024-07-21 11:25 | XMS_ITS | Encounter Summary ---
Author Organization [facility] [place] [address] Care Team Providers Care Perfusionist Name Role Phone Amira Hooks Primary Care Provider Encounter Details Date Type Department Care Team (Late st Contact Info) Description 05/14/2024 [place] [address] Arron Sparks MD [facility] [place] [address] Social History Tobacco Use Types Packs/Day Years [...] 10:[address] [place] [place] [address] Rachel Carrasco MD [facility] [place] [address] 09/21/2024 11:00 AM EST [place] [address] Rachel Carrasco MD [facility] [place] [address] documented as of this encounter Visit Diagnoses Not on filedocumented in this encounter Care Teams Perfusionist Relationship Specialty Start Date End Date Amira Hooks PA [address] [place] [address] PCP - General Family Medicine 07/25/22 documented as of this encounter
--- OUTSIDE RECORDS SUMMARY | 2024-07-21 11:25 | XMS_ITS | Encounter Summary ---
Author Organization [facility] [place] [address] Care Team Providers Care Silver Chaser Name Role Phone Amira Hooks Primary Care Provider Encounter Details Date Type Department Care Team (Late st Contact Info) Description 06/04/2024 [place] [address] Jose Juan Anton MD [facility] [place] [address] Social History Tobacco Use Types Packs/Day Years [...] Notes * Telephone Encounter - Jose Juan Atnon MD - 06/04/2024 2:36 PM EDT Urology [...] 10:[address] [place] [place] [address] Rachel Carrasco MD [facility] [place] [address] 09/21/2024 11:00 AM EST [place] [address] Rachel Crarasco MD [facility] [place] [address] documented as of this encounter Visit Diagnoses Not on filedocumented in this encounter Care Teams Silver Chaser Relationship Specialty Start Date End Date Amira Hooks PA [address] [place] [address] PCP - General Family Medicine 07/25/22 documented as of this encounter
--- OUTSIDE RECORDS SUMMARY | 2024-07-21 11:25 | XMS_ITS | Encounter Summary ---
[place] [address] Care Team Providers Care Color Matcher Name Role Phone Amira Hooks Primary Care Provider Encounter Details Date Type Department Care Team (Late st Contact Info) Description 05/21/2024 Telephone [place] [address] Michelle Reed, RN Social History Tobacco Use [...] 05/21/2024 12:34 PM EDT Copied from [facility] #[id number]. Topic: Specialty Dept CRMs - Generic Call [...] 10:[address] [place] [address] Rachel Carrasco MD [facility] [place] [address] 09/21/2024 11:00 AM EST Office [place] [address] Rachel Carrasco MD [facility] [place] [address] documented as of this encounter Visit Diagnoses Not on filedocumented in this encounter Care Teams Color Matcher Relationship Specialty Start Date End Date Amira Hooks PA [address] [place] [address] PCP - General Family Medicine 07/25/22 documented as of this encounter
--- OUTSIDE RECORDS SUMMARY | 2024-07-21 11:25 | XMS_ITS | Encounter Summary ---
[place] [address] Care Team Providers Care Duct Layer Helper Name Role Phone Amira Hooks Primary Care Provider Encounter Details Date Type Department Care Team (Late st Contact Info) Description 04/12/2024 Telephone [place] [address] Xenia Mcrae, RN Social History Tobacco Use [...] - 04/12/2024 2:19 PM EDT Copied from [facility] #[id number]. Topic: Specialty Dept CRMs - Triage >> [...] 10:[address] [place] [address] Rachel Carrasco MD [facility] [place] [address] 09/21/2024 11:00 AM EST Office [place] [address] Rachel Carrasco MD [facility] DR [place] [address] documented as of this encounter Visit Diagnoses Not on filedocumented in this encounter Care Teams Duct Layer Helper Relationship Specialty Start Date End Date Amira Hooks PA [address] [place] [address] PCP - General Family Medicine 07/25/22 documented as of this encounter
--- OUTSIDE RECORDS SUMMARY | 2024-07-21 11:25 | XMS_ITS | Encounter Summary ---
Author Organization [facility] [place] [address] Care Team Providers Care Machine Coil Assembler Name Role Phone Amira Hooks Primary Care Provider [phone] Encounter Details Date Type Department Care Team (Late st Contact Info) Description 05/03/2024 Orders [place] [address] Abelino Lazar MD [facility] [place] [address] Social History Tobacco Use Types Packs/Day Years [...] 10:[address] [place] [place] [address] Rachel Carrasco MD [facility] [place] [address] 09/21/2024 11:00 AM EST [place] [address] Rachel Carrasco MD [facility] [place] [address] documented as of this encounter Visit Diagnoses Not on filedocumented in this encounter Care Teams Machine Coil Assembler Relationship Specialty Start Date End Date Amira Hooks PA [address] [place] [address] PCP - General Family Medicine 07/25/22 documented as of this encounter
--- OUTSIDE RECORDS SUMMARY | 2024-07-21 11:25 | XMS_ITS | Encounter Summary ---
[place] [address] Care Team Providers Care Airline Lounge Receptionist Name Role Phone Amira Hooks Primary Care Provider [phone] Encounter Details Date Type Department Care Team (Late st Contact Info) Description 05/17/2024 [place] [address] Xenia Mcrae, RN Social History Tobacco Use Types Packs/Day Years Used Date Smoking Tobacco: Former Cigarettes 1.5 15 1 - 2009 Smokeless Tobacco: Former Chew Quit: 2013 Alcohol Use Standard Drinks/Week Comments No 0 (1 standard drink = 0.6 oz pur e alcohol) [facility] Inpatient Questions Answer Date Recorded [...] - 05/17/2024 1:34 PM EDT Copied from [facility] #[id number]. Topic: Specialty Dept CRMs - Generic Call >> May 17, 2024 1:20 PM Maria Rodriguez wrote: Specialist: Rachel Carrasco MD Relationship (if other than patient-full name): Keily from [facility] Reason for Call: Keily states patient is at lab to have Urine culture Clean Catch Urine but ordershave not been received. Please fax orders to [phone] or call Keily at [phone]. documented in this encounter Plan of Treatment Upcoming Encounters Date Type Department Care Team (Late st Contact Info) Description 09/21/2024 10:[address] [place] [place] [address] Rachel Carrasco MD [facility] [place] [address] 09/21/2024 11:00 AM EST [place] [address] Rachel Carrasco MD [facility] [place] [address] documented as of this encounter Visit Diagnoses Not on filedocumented in this encounter Care Teams Airline Lounge Receptionist Relationship Specialty Start Date End Date Amira Hooks PA [address] [place] [address] PCP - General Family Medicine 07/25/22 documented as of this encounter
--- OUTSIDE RECORDS SUMMARY | 2024-07-21 11:25 | XMS_ITS | Encounter Summary ---
[place] [address] Care Team Providers Care Structural Worker Name Role Phone Amira Hooks Primary Care Provider [phone] Encounter Details Date Type Department Care Team (Late st Contact Info) Description 04/27/2024 [place] [address] Michelle Reed, RN Social History Tobacco Use [...] - 04/27/2024 3:10 PM EDT Copied from [facility] #[id number]. Topic: Specialty Dept CRMs - Triage >> [...] 10:[address] [place] [place] [address] Rachel Carrasco MD [facility] [address] 09/21/2024 11:00 AM EST [place] [address] Rachel Carrasco MD [facility] [address] documented as of this encounter Visit Diagnoses Not on filedocumented in this encounter Care Teams Structural Worker Relationship Specialty Start Date End Date Amira Hooks PA [address] [place] [address] PCP - General Family Medicine 07/25/22 documented as of this encounter
--- OUTSIDE RECORDS SUMMARY | 2024-07-21 11:25 | XMS_ITS | Encounter Summary ---
Author Organization [facility] [place] [address] Care Team Providers Care Mutuel Machine Operator Name Role Phone Amira Hooks Primary Care Provider Encounter Details Date Type Department Care Team (Late st Contact Info) Description 04/09/2024 [place] [address] Abelino Lazar MD [facility] [place] [address] Nephrolithiasis Social History Tobacco Use Types Packs/Day [...] 10:[address] [place] [place] [address] Rachel Carrasco MD [facility] [place] [address] 09/21/2024 11:00 AM EST [place] [address] Rachel Carrasco MD [facility] [place] [address] documented as of this encounter Visit Diagnoses Diagnosis Nephrolithiasis Calculus of kidney documented in this encounter Care Teams Mutuel Machine Operator Relationship Specialty Start Date End Date Amira Hooks PA [address] [address] PCP - General Family Medicine 07/25/22 documented as of this encounter
--- OUTSIDE RECORDS SUMMARY | 2024-07-21 11:25 | XMS_ITS | Encounter Summary ---
[place] [address] Care Team Providers Care General Assembler Installer Name Role Phone Amira Hooks Primary Care Provider [phone] Encounter Details Date Type Department Care Team (Late st Contact Info) Description 04/09/2024 [place] [address] Xenia Mcrae RN Social History Tobacco Use Types Packs/Day Years Used Date Smoking Tobacco: Former Cigarettes 1.5 15 1 - 2009 Smokeless Tobacco: Former Chew Quit: 2013 Alcohol Use Standard Drinks/Week Comments No 0 (1 standard drink = 0.6 oz pur e alcohol) [facility] Inpatient Questions Answer Date Recorded [...] - 04/09/2024 3:23 PM EDT Copied from [facility] #[id number]. Topic: Specialty Dept CRMs - Triage >> [...] 10:[address] [place] [place] [address] Rachel Carrasco MD [facility] [place] [address] 09/21/2024 11:00 AM EST [place] [address] Rachel Carrasco MD [facility] [place] [address] documented as of this encounter Visit Diagnoses Not on filedocumented in this encounter Care Teams General Assembler Installer Relationship Specialty Start Date End Date Amira Hooks PA [address] [place] [address] PCP - General Family Medicine 07/25/22 documented as of this encounter
--- OUTSIDE RECORDS SUMMARY | 2024-07-21 11:25 | XMS_ITS | Encounter Summary ---
[place] [address] Care Team Providers Care Accounting Professor Name Role Phone Amira Hooks Primary Care Provider Encounter Details Date Type Department Care Team (Late st Contact Info) Description 06/04/2024 [place] [address] Michelle Reed, RN Social History Tobacco Use Types Packs/Day Years Used Date Smoking Tobacco: Former Cigarettes 1.5 15 1 - 2009 Smokeless Tobacco: Former Chew Quit: 2013 Alcohol Use Standard Drinks/Week Comments No 0 (1 standard drink = 0.6 oz pur e alcohol) [facility] Inpatient Questions Answer Date Recorded Does [...] RN - 06/04/2024 1:47 PM EDT S/p 05/24/24 URS/LL right Stent removal 06/11/24 * Telephone Encounter - Michelle Reed RN - 06/04/2024 1:43 PM EDT Copied from [facility] #[id number]. Topic: Specialty Dept CRMs - Generic Call [...] 10:[address] [place] [address] Rachel Carrasco MD [facility] [place] [address] 09/21/2024 11:00 AM [place] [address] Rachel Carrasco MD [facility] [place] [address] documented as of this encounter Visit Diagnoses Not on filedocumented in this encounter Care Teams Accounting Professor Relationship Specialty Start Date End Date Amira Hooks PA [address] [place] [address] PCP - General Family Medicine 07/25/22 documented as of this encounter
--- OUTSIDE RECORDS SUMMARY | 2024-07-21 11:25 | XMS_ITS | Encounter Summary ---
Author Organization [facility] [place] [address] Care Team Providers Care Tie Puller Name Role Phone Amira Hooks Primary Care Provider [phone] Reason for Visit * Auth/Cert (Routine) Specialty Diagnoses / Procedures Referred By Zeyad mishra Referred To Contact Diagnoses Nephrolithiasis NEPHROLITHIASIS Procedures PRO CYSTOSCOPY, REMV CALCULUS, SIMPLE CYSTO, REMOVAL OF STENT, FOREIGN BODY OR CALCULUS, SIMPLE (WRVU 2.81) Rachel Carrasco MD [facility] [place] [address] [facility] Referral ID Status Reason Start Date Expiration Date Visits Re quested Visits Authorized [id number] 1 1 Encounter Details Date Type Department Care Team (Latest Contact Info) Description 06/11/2024 4:14 PM EDT - 06/11/2024 7:41 PM EDT Hospital En[place] [address] Rachel Carrasco MD [facility] [place] [address] Discharge Disposition: Home Social History Tobacco Use [...] stops draining please call our office at [phone] before 5PM or [phone] after hours. Call Doctor for: Please call if you have copious blood in your urine, severe back or side pain, pain not controlled by pain medications, persistent nausea and vomiting, or for any fevers greater buip453.3 F. The number for questions is [phone] before 5 PM weekdays and [phone] after 5 PM and weekends. Pain Medication: [...] 03/26/2024 ipratropium (ATROVENT) 21 mcg (0.03 %) [place], Non-Aerosol INSTILL 2 SPRAYS VIA NOSTRILS AT [...] 8) performed by Rachel Carrasco MD at [facility] MAIN OR PRO CYSTOSCOPY, INSERT URETERAL STENT Right 04/09/2024 CYSTO, STENT PLACEMENT (WRVU 2.82) performed by Rachel Carrasco MD at [facility] MAIN OR PRO LAP, CHOLECYSTECTOMY/GRAPH N/A 07/21/2018 LAPAROSCOPIC CHOLECYSTECTOMY WITH CHOLANGIOGRAM (WRVU 11.47) performed by Colt [place] MD [facility] MAIN OR PRO UNLISTED LAPAROSCOPIC PX LVR N/A 07/21/2018 LAPAROSCOPIC LIVER BIOPSY (WRVU 16.52) performed by Colt [place] MD at [facility] MAIN OR PRO UPPER GI ENDOSCOPY, BIOPSY N/A 12/29/2017 UPPER GASTROINTESTINAL ENDOSCOPY,WITH BIOPSY SINGLE OR MULTIPLE (WRVU 2.49) performed by Yusuf Tucker MD at [facility] ENDOSCOPY PRO UPPER GI ENDOSCOPY, BIOPSY N/A 03/08/2024 EGD WITH BIOPSY (WRVU 2.39) performed by Radu Silveira MD at [facility] ENDOSCOPY PRO UPPER GI ENDOSCOPY, DIAGNOSTIC N/A 12/29/2017 EGD, UPPER GI ENDOSCOPY performed by Yusuf [place] MD at [facility] ENDOSCOPY TONSILLECTOMY Allergies: Allergies Allergen [...] Carrasco MD - 06/11/2024 5:52 PM EDT [facility] Operative Note Patient Name: Rolo Aguilar : [id number] MR#: [id number] Case Date: 06/11/2024 Surgeon: Surgeons and Role: [...] 10:[address] [place] [place] [address] Rachel Carrasco MD [facility] [place] [address] 09/21/2024 11:00 AM EST [place] [address] Rachel Carrasco MD [facility] [place] [address] documented as of this encounter Procedures Procedure Name Priority Date/Time Associated Diagnosis Comments Cystoscopy, Remv Calculus, Simple (54425) 06/11/2024 5:26 PM EDT NEPHROLITHIASIS documented in [...] mL Mini-Bag Plus (COMPLETED) 2 g, Intravenous, RN DIABETES EDUCATOR TO O.R., 1 dose, On Fri06/11/24 at 1700, Administer over 30 Minutes, Day of Surgery (Day of Procedure), Indication for (Active or Suspected): Prophylaxis 1744 (New Bag - Prov ider: Arturo Max, REDUCING SALON ATTENDANT) PRN Medication Order 06/09/2024 06/10/2024 06/11/2024 [id number] [...] Routine documented in this encounter Care Teams Tie Puller Relationship Specialty Start Date End Date Amira Hooks PA [address] [place] [address] PCP - General Family Medicine 07/25/22 documented as of this encounter
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
--- OUTSIDE RECORDS SUMMARY | 2024-07-21 11:25 | XMS_ITS | Encounter Summary ---
[place] [address] Care Team Providers Care Oil Field Operator Name Role Phone Amira Hooks Primary Care Provider Encounter Details Date Type Department Care Team (Late st Contact Info) Description 06/15/2024 1:30 PM EDT Clinical [place] [address] Nephrolithiasis Social History Tobacco Use Types Packs/Day [...] as of this encounter Progress Notes * Sally Damico RN - 06/15/2024 1:30 PM EDT Patient presents today for a voiding trial and catheter removal s/p bladder stone. Procedure: 250 ml normal saline instilled via lobato catheter. Balloon deflated. Lobato gently removed. Patient voided 300 ml's. Patient passed void trial. Follow up with Dr Carrasco in 3 months Sally Damico, RN documented in this encounter Plan of Treatment Upcoming Encounters Date Type Department Care Team (Late st Contact Info) Description 09/21/2024 10:[address] [place] [place] [address] Rachel Carrasco MD [facility] [place] [address] 09/21/2024 11:00 AM EST [place] [address] Rachel Carrasco MD [facility] [place] [address] documented as of this encounter Visit Diagnoses Diagnosis Nephrolithiasis Calculus of kidney documented in this encounter Care Teams Oil Field Operator Relationship Specialty Start Date End Date Amira Hooks PA [address] [place] [address] PCP - General Family Medicine 07/25/22 documented as of this encounter
--- OUTSIDE RECORDS SUMMARY | 2024-07-21 11:25 | XMS_ITS | Encounter Summary ---
[place] [address] Care Team Providers Care Digital Marketing Intern Name Role Phone Amira Hooks Primary Care Provider Encounter Details Date Type Department Care Team (Late st Contact Info) Description 06/18/2024 Telephone [place] [phone] Michelle Reed, RN Social History Tobacco Use [...] Telephone Encounter - Michelle Reed RN - 06/18/2024 3:48 PM EDT Copied from [facility] #[id number]. Topic: Specialty Dept CRMs - Triage >> Jun 18, 2024 2:17 PM Rayo Bhagat wrote: Triage Message Specialist: Danilo Relationship (if other than patient-full name): Autumn, spouse Symptom: fever Has patient experienced symptom before If patient has experienced symptom before, when was the last time this occurred Is patient currently having symptom yes When did symptom begin a few days ago Additional Comments: Patient's spouse called in, stated that the patient currently has a fever and has been prescribed anti biotics. Autumn stated she wanted to speak with a nurse to know if this is normal. documented in this encounter Plan of Treatment Upcoming Encounters Date Type Department Care Team (Late st Contact Info) Description 09/21/2024 10:[address] [place] [address] Rachel Carrasco MD [facility] [place] [address] 09/21/2024 11:00 AM EST Office [place] [address] Rachel Carrasco MD [facility] [place] [address] documented as of this encounter Visit Diagnoses Not on filedocumented in this encounter Care Teams Digital Marketing Intern Relationship Specialty Start Date End Date Amira Hooks PA [address] [place] [address] PCP - General Family Medicine 07/25/22 documented as of this encounter
--- OUTSIDE RECORDS SUMMARY | 2024-07-21 11:25 | XMS_ITS | Encounter Summary ---
Author Organization [facility] [place] [place] [address] Care Team Providers Care Allergist/Immunologist Physician Name Role Phone Amira Hooks Primary Care Provider Encounter Details Date Type Department Care Team (Late st Contact Info) Description 06/02/2024 Telephone [place] [phone] Shai Mckeon PA [facility] [place] [address] Social History Tobacco Use Types Packs/Day Years [...] picture of pink tinged yellow urine through [facility] which he was anxious about. Continues [...] 10:[address] [place] [place] [address] Rachel Carrasco MD [facility] [place] [address] 09/21/2024 11:00 AM EST [place] [address] Rachel Carrasco MD [facility] [place] [address] documented as of this encounter Visit Diagnoses Not on filedocumented in this encounter Care Teams Allergist/Immunologist Physician Relationship Specialty Start Date End Date Amira Hooks PA [address] [place] [address] PCP - General Family Medicine 07/25/22 documented as of this encounter
--- OUTSIDE RECORDS SUMMARY | 2024-07-21 11:25 | XMS_ITS | Encounter Summary ---
Author Organization [facility] [place] [address] Care Team Providers Care City Letter Carrier Name Role Phone Amira Hooks Primary Care Provider Encounter Details Date Type Department Care Team (Late st Contact Info) Description 04/10/2024 [place] [phone] Carlos Redd MD [facility] [place] [address] Social History Tobacco Use Types Packs/Day Years [...] Patient calling back, went to ED in [facility] overnight for pain control - [...] [place] [address] Rachel Carrasco MD [facility] [place] [address] 09/21/2024 11:00 AM EST Office [place] [address] Rachel Carrasco MD [facility] [place] [address] documented as of this encounter Visit Diagnoses Not on filedocumented in this encounter Care Teams City Letter Carrier Relationship Specialty Start Date End Date Amira Hooks PA [address] [place] [address] PCP - General Family Medicine 07/25/22 documented as of this encounter
--- OUTSIDE RECORDS SUMMARY | 2024-07-21 11:25 | XMS_ITS | Encounter Summary ---
[place] [address] Care Team Providers Care Data Officer Name Role Phone Amira Hooks Primary Care Provider [phone] Encounter Details Date Type Department Care Team (Late st Contact Info) Description 06/04/2024 [place] [phone] Xenia Mcrae RN Social History Tobacco Use [...] 10:[address] [place] [place] [address] Rachel Carrasco MD [facility] [place] [address] 09/21/2024 11:00 AM EST [place] [address] Rachel Carrasco MD [facility] [place] [address] documented as of this encounter Visit Diagnoses Not on filedocumented in this encounter Care Teams Data Officer Relationship Specialty Start Date End Date Amira Hooks PA [address] [place] [address] PCP - General Family Medicine 07/25/22 documented as of this encounter
--- OUTSIDE RECORDS SUMMARY | 2024-07-21 11:25 | XMS_ITS | Encounter Summary ---
Author Organization [facility] [place] [address] Care Team Providers Care Stunner And Shackler Name Role Phone Amira Hooks Primary Care Provider [phone] Encounter Details Date Type Department Care Team (Latest Contact Info) Description 06/15/2024 Travel Social History Tobacco Use Types Packs/Day Years Used Date Smoking Tobacco: Former Cigarettes 1.5 15 1 - 2009 Smokeless Tobacco: Former Chew Quit: 2013 Alcohol Use Standard Drinks/Week Comments No 0 (1 standard drink = 0.6 oz pur e alcohol) [facility] Inpatient Questions Answer Date Recorded Does [...] 10:[address] [place] [place] [address] Rachel Carrasco MD [facility] [place] [address] 09/21/2024 11:00 AM EST [place] [address] Rachel Carrasco MD [facility] [place] [address] documented as of this encounter Visit Diagnoses Not on filedocumented in this encounter Care Teams Stunner And Shackler Relationship Specialty Start Date End Date Amira Hooks PA [address] [place] [address] PCP - General Family Medicine 07/25/22 documented as of this encounter
--- OUTSIDE RECORDS SUMMARY | 2024-07-21 11:26 | XMS_ITS | Encounter Summary ---
Author Organization [facility] [place] [address] Care Team Providers Care Edi Programmer Name Role Phone Amira Hooks Primary Care Provider [phone] Encounter Details Date Type Department Care Team (Late st Contact Info) Description 03/24/2024 [place] [address] Rachel Carrasco MD [facility] [place] [address] Social History Tobacco Use Types Packs/Day Years Used Date Smoking Tobacco: Former Cigarettes 1.5 15 1 - 2009 Smokeless Tobacco: Former Chew Quit: 2013 Alcohol Use Standard Drinks/Week Comments No 0 (1 standard drink = 0.6 oz pur e alcohol) [facility] Inpatient Questions Answer Date Recorded [...] 10:[address] [place] [place] [address] Rachel Carrasco MD [facility] [place] [address] 09/21/2024 11:00 AM EST [place] [address] Rachel Carrasco MD [facility] [place] [address] documented as of this encounter Visit Diagnoses Not on filedocumented in this encounter Care Teams Edi Programmer Relationship Specialty Start Date End Date Amira Hooks PA [address] [place] [address] PCP - General Family Medicine 07/25/22 documented as of this encounter
--- OUTSIDE RECORDS SUMMARY | 2024-07-21 11:26 | XMS_ITS | Encounter Summary ---
[place] [address] Care Team Providers Care Director Graphics Name Role Phone Amira Hooks Primary Care Provider Reason for Referral * Diagnostic Test (Routine) - Closed Specialty Diagnoses / Procedures Referred By Contac t Referred To Contact Radiology Diagnoses Nephrolithiasis Procedures CT Urogram Abelino Lazar MD [facility] [place] [address] [facility] [place] [address] Referral ID Status Reason Start Date Expiration Date V isits Requested Visits Authorized [id number] Closed Specialty Service Requested 02/17/2024 08/18/2025 1 1 Reason for Visit * Diagnostic Test (Routine) - Closed Specialty Diagnoses / Procedures Referred By Contestuardo t Referred To Contact Radiology Diagnoses Nephrolithiasis Procedures CT Urogram Abelino Lazar MD [facility] [place] [address] [facility] [place] [address] Referral ID Status Reason Start Date Expiration Date V isits Requested Visits Authorized [id number] Closed Specialty Service Requested 02/17/2024 08/18/2025 1 1 Encounter Details Date Type Department Care Team (Latest Contact Info) Description 02/26/2024 3:53 PM EDT - 02/26/2024 11:59 PM EDT Hospital Encounter CT Scan at [facility] [place] [place] [address] Rachel Carrasco MD [facility] [place] [address] Nephrolithiasis Discharge Disposition: Home Social History Tobacco [...] 03/26/2024 ipratropium (ATROVENT) 21 mcg (0.03 %) [place], Non-Aerosol INSTILL 2 SPRAYS VIA NOSTRILS AT [...] 10:[address] [place] [place] [address] Rachel Carrasco MD [facility] [place] [address] 09/21/2024 11:00 AM EST [place] [address] Rachel Carrasco MD [facility] [place] [address] documented as of this encounter Procedures Procedure Name Priority Date/Time Associated Diagnosis Comments CT SCAN UROLOGY Routine 02/26/2024 5:00 PM EDT Nephrolithiasis documented in this encounter Results * CT Urogram (02/26/2024 5:00 PM EDT) WORKSTATION ID [id number] [facility] Anatomical Region Laterality Modality Abdomen, Pelvis Computed [...] who have questions please contact the health senior care assistant that requested your imaging first. ? Electronically signed by: JERRI PORTILLO MD, [facility] ([phone]), at 02/27/2024 3:25 PM Narrative 02/27/2024 3:25 [...] patients who have questions please contactthe health senior care assistant that requested your imaging first. Electronically signed by: JERRI PORTILLO MD, [facility]([phone]), at 02/27/2024 3:25 PM Rachel Carrasco MD IMG CT ORDERABLES documented [...] mLs documented in this encounter Care Teams Director Graphics Relationship Specialty Start Date End Date Amira Hooks PA [address] [address] PCP - General Family Medicine 07/25/22 documented as of this encounter
--- OUTSIDE RECORDS SUMMARY | 2024-07-21 11:26 | XMS_ITS | Encounter Summary ---
Author Organization [facility] [place] [address] Care Team Providers Care Occupational Therapy Supervisor Name Role Phone Amira Hooks Primary [...] MD [facility] [place] [address] [facility] Referral ID Status Reason Start Date Expiration Date Visits Re quested Visits Authorized [id number] 1 1 Encounter Details Date Type Department Care Team (Late st Contact Info) Description 04/09/2024 11:16 AM EDT Anesthesia [place] [address] Amarjit Beth MD [facility] ANESTHESIOLOGY [place] [address] Marii Nieves CRNA [facility] DR ANESTHESIOLOGY [place] [address] Anesthesia Record Procedure Summary Procedure [...] Type Details Placement Removal PIV 04/09/24; 1057; lhoa-vbj-ahugya catheter system; 20 gauge; median vein (underside of arm), left; Anatomical Landmarks; US Not Used; Liz ALEJANDRO; distraction; 04/09/24; 1347 04/09/24 1057 by Alis Bunch RN 04/09/24 1347 by Ashley Taylor, RN ETT Mask Ventilation: Ea sy (1); [...] Procedure Summary Date: 04/09/24 Room / Location: [facility] OR [address] [place] [address] MAIN OR Anesthesia Start: 1116 Anesthesia Stop: 1253 Procedure: CYSTO, STENT PLACEMENT (WRVU 2.82) (Right: Ureter) Diagnosis: (LEFT URETERAL STONE/HEMATURIA WORK UP) Surgeons: Rachel Carrasco MD Responsible Provider: Amarjit Beth MD Anesthesia Type: general ASA Status: 3 All Anesthesia Providers: Anesthesiologist: Amarjit Beth MD RN ER: Marii Nieves CRNA Vitals Value Taken Time BP 121/56 04/09/24 1300 Temp 36.9 ??C (98.4 ??F) 04/09/24 1252 Pulse Resp 16 04/09/24 1252 SpO2 96 % 04/09/24 1306 Pain Level 0 04/09/24 1252 Vitals shown include unfiled device data. Patient Location: PACU/[facility] Level of Consciousness: Awake and [...] (WRVU 11.47) performed by Colt [place] MD [facility] MAIN OR ??? PRO UNLISTED LAPAROSCOPIC PX LVR N/A 07/21/2018 LAPAROSCOPIC LIVER BIOPSY (WRVU 16.52) performed by Colt [place] MD at [facility] MAIN OR ??? PRO UPPER GI ENDOSCOPY, BIOPSY N/A 12/29/2017 UPPER GASTROINTESTINAL ENDOSCOPY,WITH BIOPSY SINGLE OR MULTIPLE (WRVU 2.49) performed by Yusuf Tucker MD at [facility] ENDOSCOPY ??? PRO UPPER GI ENDOSCOPY, BIOPSY N/A 03/08/2024 EGD WITH BIOPSY (WRVU 2.39) performed by Radu Silveira MD at [facility] ENDOSCOPY ??? PRO UPPER GI ENDOSCOPY, DIAGNOSTIC N/A 12/29/2017 EGD, UPPER GI ENDOSCOPY performed by Yusuf [place] MD at [facility] ENDOSCOPY ??? TONSILLECTOMY Social History Tobacco Use ??? Smoking status: Former Current packs/day: 0.00 Average packs/day: 1.5 packs/day for 15.0 years (22.5 ttl pk-yrs) Types: Cigarettes Start date: 1994 Quit date: 2010 Years since quittin.4 ??? Smokeless tobacco: Former [...] risks discussed with patient. Plan discussed with RN ER. Anesthesia Screening documented in this encounter Plan of Treatment Upcoming Encounters Date Type Department Care Team (Late st Contact Info) Description 09/21/2024 10:[address] [place] [address] Rachel Carrasco MD [facility] [place] [address] 09/21/2024 11:00 AM EST [place] [address] Rachel Carrasco MD [facility] [place] [address] documented as of this encounter Visit Diagnoses [...] mg documented in this encounter Care Teams Occupational Therapy Supervisor Relationship Specialty Start Date End Date Amira Hooks PA [address] [place] [address] PCP - General Family Medicine 07/25/22 documented as of this encounter
--- OUTSIDE RECORDS SUMMARY | 2024-07-21 11:26 | XMS_ITS | Encounter Summary ---
Author Organization Formerly [facility] [place] [address] Care Team Providers Care Research Methodologist Name Role Phone Amira Hooks Primary Care [...] 10:[address] Scan at [facility] [place] [address] Rachel Carrasco MD [facility] [place] [address] 09/21/2024 11:00 AM EST [place] [address] Rachel Carrasco MD [facility] [place] [address] documented as of this encounter Visit Diagnoses Not on filedocumented in this encounter Care Teams Research Methodologist Relationship Specialty Start Date End Date Amira Hooks PA [address] [place] [address] PCP - General Family Medicine 07/25/22 documented as of this encounter
--- OUTSIDE RECORDS SUMMARY | 2024-07-21 11:26 | XMS_ITS | Encounter Summary ---
[place] [address] Care Team Providers Care Fruit Or Nut Farmer Name Role Phone Amira Hooks Primary Care Provider Reason for Referral * Consultation (Routine) - Authorized Specialty Diagnoses / Procedures Referred By Zeyad t Referred To Contact Urology Diagnoses Hematuria, unspecified type Amira Hooks PA [address] [place] [address], [place] [address] [facility] [place] [address] Referral ID Status Reason Start Date Expiration Date Visits Requested Visits Authorized [id number] Authorized Consult, Test & Treat PCP Updated and/or Approved 2023 12/16/2024 6 6 Encounter Details Date Type Department Care Team (Latest Contact Info) Description 12/23/2023 Transcribe Orders eD Incoming Referrals [phone] Amira Hooks PA [address] [place] [address], [place] [address] Hematuria, unspecified type Social History Tobacco Use [...] 10:[address] [place] [place] [address] Rachel Carrasco MD [facility] [place] [address] 09/21/2024 11:00 AM EST [place] [address] Rachel Carrasco MD [facility] [place] [address] Scheduled Referrals Name Type Priority Associated Diagnoses Orde r Schedule Referral to Urology Outpatient Referral Routine Hematuria, unspecified type Ordered: 12/23/2023 documented as of this encounter Visit Diagnoses Diagnosis Hematuria, unspecified type documented in this encounter Care Teams Fruit Or Nut Farmer Relationship Specialty Start Date End Date Amira Hooks PA [address] [place] [address] PCP - General Family Medicine 07/25/22 documented as of this encounter
--- OUTSIDE RECORDS SUMMARY | 2024-07-21 11:26 | XMS_ITS | Encounter Summary ---
Author Organization [facility] [address] Care Team Providers Care Avionics Supervisor Name Role Phone Amira Hooks Primary Care Provider [phone] Encounter Details Date Type Department Care Team [...] 10:[address] Scan at [facility] [place] [address] Rachel Carrasco MD [facility] [place] [address] 09/21/2024 11:00 AM EST [place] [address] Rachel Carrasco MD [facility] [place] [address] documented as of this encounter Visit Diagnoses Not on filedocumented in this encounter Care Teams Avionics Supervisor Relationship Specialty Start Date End Date Amira Hooks PA [address] [place] [address] PCP - General Family Medicine 07/25/22 documented as of this encounter
--- OUTSIDE RECORDS SUMMARY | 2024-07-21 11:26 | XMS_ITS | Encounter Summary ---
Author Organization [facility] Address [facility] [place] [address] Care Team Providers Care Senior Physical Therapist Name Role Phone Amira Hooks Primary Care Provider [phone] Encounter Details Date Type Department Care Team (Latest Contact Info) Description 01/16/2024 8:49 AM EST - 01/16/2024 9:57 PM EST Hospital En[place] [address] Joan Castro MD [facility] [place] [address] Discharge Disposition: Home Social History Tobacco Use [...] 03/26/2024 ipratropium (ATROVENT) 21 mcg (0.03 %) [place], Non-Aerosol INSTILL 2 SPRAYS VIA NOSTRILS AT [...] 10:[address] [place] [address] Rachel Carrasco MD [facility] [place] [address] 09/21/2024 11:00 AM EST [place] [address] Rachel Carrasco MD [facility] [place] [address] documented as of this encounter Procedures Procedure Name Priority Date/Time Associated Diagnosis Comments Colonoscopy, Diagnostic (82885) Dyspepsia Screening for colon cancer Upper GI Endoscopy, Diagnostic (03517) Dyspepsia Screening for colon cancer documented in this encounter Visit Diagnoses Not on filedocumented in this encounter Care Teams Senior Physical Therapist Relationship Specialty Start Date End Date Amira Hooks PA [address] [address] PCP - General Family Medicine 07/25/22 documented as of this encounter
--- OUTSIDE RECORDS SUMMARY | 2024-07-21 11:26 | XMS_ITS | Encounter Summary ---
[place] [address] Care Team Providers Care Brake Lining Curer Name Role Phone Amira Hooks Primary Care Provider [phone] Reason for Referral * Diagnostic Test (Routine) - Closed Specialty Diagnoses / Procedures Referred By Contac t Referred To Contact Radiology Diagnoses Nephrolithiasis Procedures CT Urogram Abelino Lazar MD [facility] [place] [address] [facility] [place] [address] Referral ID Status Reason Start Date Expiration Date V isits Requested Visits Authorized [id number] Closed Specialty Service Requested 02/17/2024 08/18/2025 1 1 Reason for Visit * Consultation (Routine) - Authorized Specialty Diagnoses / Procedures Referred By Contestuardo t Referred To Contact Urology Diagnoses Hematuria, unspecified type Amira Hooks PA [address] [place] [address] [facility] [place] [address] Referral ID Status Reason Start Date Expiration Date Visits Requested Visits Authorized [id number] Authorized Consult, Test & Treat PCP Updated and/or Approved 2023 12/16/2024 6 6 Encounter Details Date Type Department Care Team (Late st Contact Info) Description 02/17/2024 3:20 PM EDT [place] [address] Rachel Carrasco MD [facility] [place] [address] Nephrolithiasis; Hematuria, unspecified type Social History Tobacco [...] 10:[address] [place] [address] Rachel Carrasco MD [facility] [place] [address] 09/21/2024 11:00 AM EST [place] [address] Rachel Carrasco MD [facility] [place] [address] Scheduled Orders Name Type Priority Associated Diagnoses Orde r Schedule Urine culture Clean Catch Urine Microbiology Routine Hematuria, unspecified type Expected: 02/17/2024, Expires: 02/16/2025 documented as of this encounter Procedures Procedure Name Priority Date/Time Associated Diagnosis Comments URINE CULTURE Routine 02/17/2024 5:00 PM EDT documented in this encounter Results * CT Urogram (02/26/2024 5:00 PM EDT) WORKSTATION ID [id number] RAD Anatomical Region Laterality Modality Abdomen, Pelvis [...] who have questions please contact the health continuum of care manager that requested your imaging first. ? Narrative [...] patients who have questions please contactthe health continuum of care manager that requested your imaging first. Rachel Carrasco MD IMG CT ORDERABLES * (ABNORMAL) Urine culture (02/17/2024 5:00 PM EDT) Urine Culture 10,000-49,000 cfu/ml mixed mucosal debbie Note: Culture shows multiple bacterial species suggesting mucosal contamination. (A) [facility] Clean Catch Urine 02/17/2024 5:00 PM EDT 02/17/2024 6:39 PM EDT Narrative Resulting Agency Comment Spec In Lab Rachel Carrasco MD [facility] AL ORDERABLES [facility] [place] [address] documented in this encounter Visit Diagnoses Diagnosis Nephrolithiasis Calculus of kidney Hematuria, unspecified type Nephrolithiasis Calculus of kidney documented in this encounter Care Teams Brake Lining Curer Relationship Specialty Start Date End Date Amira Hooks PA [address] [place] [address] PCP - General Family Medicine 07/25/22 documented as of this encounter
--- OUTSIDE RECORDS SUMMARY | 2024-07-21 11:26 | XMS_ITS | Encounter Summary ---
[place] [address] Care Team Providers Care Parking Assistant Name Role Phone Amira Hooks Primary Care Provider Reason for Visit * Reason Onset Date Comments Triage 03/31/2024 Flank pain Encounter Details Date Type Department Care Team (Late st Contact Info) Description 03/31/2024 [place] [address] Joss Johnson, welding machine operator (Flank pain) Social History Tobacco Use Types Packs/Day Years Used Date Smoking Tobacco: Former Cigarettes 1.5 15 1 995 - 2009 Smokeless Tobacco: Former Chew Quit: 2013 Alcohol Use Standard Drinks/Week Comments No 0 (1 standard drink = 0.6 oz pur e alcohol) [facility] Inpatient Questions Answer Date Recorded Does [...] symptom begin 03/16. Patient was seen a [facility] on 03/16 for excruciating pain [...] said that he was told by his recreation director that he cannot take Ibuprofen because he [...] - 03/31/2024 3:37 PM EDT Copied from [facility] #[id number]. Topic: Specialty Dept CRMs - Triage >> [...] 03/16 Additional Comments: Patient was seen a [facility] on 03/16 for excruciating pain [...] 10:[address] [place] [place] [address] Rachel Carrasco MD [facility] [place] [address] 09/21/2024 11:00 AM EST [place] [address] Rachel Carrasco MD [facility] [place] [address] documented as of this encounter Visit Diagnoses Not on filedocumented in this encounter Care Teams Parking Assistant Relationship Specialty Start Date End Date Amira Hooks PA [address] [place] [address] PCP - General Family Medicine 07/25/22 documented as of this encounter
--- OUTSIDE RECORDS SUMMARY | 2024-07-21 11:26 | XMS_ITS | Encounter Summary ---
[place] [address] Care Team Providers Care Spreading Machine Operator Name Role Phone Amira Hooks Primary Care Provider Encounter Details Date Type Department Care Team (Late st Contact Info) Description 03/01/2024 [place] [address] Joss Johnson, RN Social History Tobacco Use Types Packs/Day Years Used Date Smoking Tobacco: Former Cigarettes 1.5 15 1 - 2009 Smokeless Tobacco: Former Chew Quit: 2013 Alcohol Use Standard Drinks/Week Comments No 0 (1 standard drink = 0.6 oz pur e alcohol) [facility] Inpatient Questions Answer Date Recorded Does [...] Miscellaneous Notes * Telephone Encounter - Joss Johnson RN - 03/01/2024 10:46 AM EDT Copied from [facility] #[id number]. Topic: Specialty Dept CRMs - Generic Call >> Mar 01, 2024 9:23 AM Alissa Michael wrote: Specialist: Rachel Carrasco Relationship (if other than patient-full name): self Reason for Call: Patient returning call to provider from earlier today. Patient states that he is available any time for return call. documented in this encounter Plan of Treatment Upcoming Encounters Date Type Department Care Team (Late st Contact Info) Description 09/21/2024 10:[address] [place] [address] Rachel Carrasco MD [facility] [place] [address] 09/21/2024 11:00 AM [place] [address] Rachel Carrasco MD [facility] [place] [address] documented as of this encounter Visit Diagnoses Not on filedocumented in this encounter Care Teams Spreading Machine Operator Relationship Specialty Start Date End Date Amira Hooks PA [address] [place] [address] PCP - General Family Medicine 07/25/22 documented as of this encounter
--- OUTSIDE RECORDS SUMMARY | 2024-07-21 11:26 | XMS_ITS | Encounter Summary ---
[place] [address] Care Team Providers Care Medical Microbiologist Name Role Phone Amira Hooks Primary Care Provider [phone] Encounter Details Date Type Department Care Team (Late st Contact Info) Description 03/16/2024 [place] [phone] Michelle Reed, RN Social History Tobacco Use [...] patients spouse. Patient is in ED at [facility] increased right sided flank pain and hematuria. Patients spouse says ED doctor Carlos Rehman, DO is trying to contact urology * Telephone Encounter - Michelle Reed RN - 03/16/2024 12:27 PM EDT Copied from [facility] #[id number]. Topic: Specialty Dept CRMs - Triage >> [...] 10:[address] [place] [place] [address] Rachel Carrasco MD [facility] [place] [address] 09/21/2024 11:00 AM EST [place] [address] Rachel Carrasco MD [facility] [place] [address] documented as of this encounter Visit Diagnoses Not on filedocumented in this encounter Care Teams Medical Microbiologist Relationship Specialty Start Date End Date Amira Hooks PA [address] [place] [address] PCP - General Family Medicine 07/25/22 documented as of this encounter
--- OUTSIDE RECORDS SUMMARY | 2024-07-21 11:26 | XMS_ITS | Encounter Summary ---
Author Organization [facility] [place] [address] Care Team Providers Care Worship Director Name Role Phone Amira Hooks Primary Care Provider [phone] Encounter Details Date Type Department Care Team (Late st Contact Info) Description 02/24/2024 Orders [place] [address] Joan Castro MD [facility] [place] [address] Social History Tobacco Use Types Packs/Day Years Used Date Smoking Tobacco: Former Cigarettes 1.5 15 1 995 - 2009 Smokeless Tobacco: Former Chew Quit: 2013 Alcohol Use Standard Drinks/Week Comments No 0 (1 standard drink = 0.6 oz pur e alcohol) [facility] Inpatient Questions Answer Date Recorded Does [...] 10:[address] [place] [address] Rachel Carrasco MD [facility] [place] [address] 09/21/2024 11:00 AM [place] [address] Rachel Carrasco MD [facility] [place] [address] documented as of this encounter Visit Diagnoses Not on filedocumented in this encounter Care Teams Worship Director Relationship Specialty Start Date End Date Amira Hooks PA [address] [place] [address] PCP - General Family Medicine 07/25/22 documented as of this encounter
--- OUTSIDE RECORDS SUMMARY | 2024-07-21 11:26 | XMS_ITS | Encounter Summary ---
[place] [address] Care Team Providers Care Rrt Name Role Phone Amira Hooks Primary Care Provider [phone] Reason for Visit * Reason Comments Blood In Urine Encounter Details Date Type Department Care Team (Late st Contact Info) Description 01/04/2024 11:02 AM EST - 01/04/2024 2:15 PM EST Emergency [place] [address] Hematuria, unspecified type Discharge Disposition: Home Social [...] 03/26/2024 ipratropium (ATROVENT) 21 mcg (0.03 %) [place], Non-Aerosol INSTILL 2 SPRAYS VIA NOSTRILS AT [...] to display ED Course as of 01/04/242253 Sun Jan 04, 2024 1228 Blood UA(!): Large [...] AM [place] [address] Rachel Carrasco MD [facility] [place] [address] 09/21/2024 11:00 AM EST Office [place] [address] Rachel Carrasco MD [facility] [place] [address] documented as of this encounter Procedures Procedure [...] Tube HOLD (01/04/2024 12:38 PM EST) Pathologist [facility] Gold Hold Sample in lab. [facility] Blood Venous Draw / Unknown 01/04/2024 12:38 PM EST 01/04/2024 1:09 PM EST Anthony DENNIS CHEMISTRY ORDERABLES Performing Organization Address City/State/[facility] Co de Phone Number [facility] [place] [address] * (ABNORMAL) Differential, Automated (01/04/2024 12:38 PM EST) [facility] Neutrophil % 70.6 % [facility] Neutrophil Absolute 6.06 1.70 - 6.10 x10(3)/mc L [facility] Lymph % 20.0 % [facility] Lymphocytes Abs 1.7 0.9 - 3.2 x10(3)/mc L [facility] Monocyte % 6.8 % [facility] Monocyte Abs 0.6 0.3 - 0.9 x10(3)/mc L [facility] Eos % 1.2 % [facility] Eosinophils Abs 0.1 0.0 - 0.4 x10(3)/mc L [facility] Basophil % 0.6 % [facility] Baso Absolute 0.0 0.0 - 0.1 x10(3)/mc L [facility] Immature Gran % 0.80 % [facility] Comment: Immature granulocytes(IG's)percentage and absolute count will include metamyelocytes, myelocytes, and promyelocytes. Blood smears from CBCs yielding IG's will be scanned manually for concordance. If this scan disagrees with the automated IG or if promyelocytes are noted, a manual differential will be performed. Immature Gran Absolute 0.07(H) 0.00 - 0.04 x10(3)/mc L [facility] Blood 01/04/2024 12:3 8 PM EST 01/04/2024 1:08 PM EST Narrative Resulting Agency Comment Spec In Lab Anthony DENNIS HEMATOLOGY ORDERABLE S Performing Organization Address [facility] Co de Phone Number [facility] [place] [address] * (ABNORMAL) Hemogram (01/04/2024 12:38 PM EST) White Blood Cell 8.6 4.0 - 9.5 x10(3)/mc L [facility] Red Blood Cell 5.02 4.58 - 5.54 x10(6)/mc L [facility] Hemoglobin 14.0 13.7 - 16.5 g/dL [facility] Hematocrit 43.4 40.5 - 48.5 % [facility] Mean Cell Volume 86.5 82.9 - 93.1 fL [facility] Mean Cell Hemoglobin 27.9 27.5 - 32.1 pg [facility] Mean Cell Hemoglobin Concentration 32.3 32.0 - 35.7 g/dL [facility] Platelet 214 145 - 357 x10(3)/mc L [facility] RDW Standard Deviation 44.9 36.0 - 45.0 fL [facility] RDW coefficient of variation 14.3(H) 11.4 - 13.8 % [facility] Mean Platelet Volume 10.5 7.6 - 12.9 fL [facility] NRBC% auto 0.0 % [facility] NRBC Absolute 0.000 0.000 - 0.000 x10(3)/mc L [facility] Blood 01/04/2024 12:3 8 PM EST 01/04/2024 1:08 PM EST Narrative Resulting Agency Comment Spec In Lab Anthony DENNIS HEMATOLOGY ORDERABLE S Performing Organization Address City/[facility]/ZIP Co de Phone Number [facility] [place] [address] * Basic Metabolic Panel (non-fasting) (01/04/2024 12:38 PM EST) Glucose 119 65 - 199 mg/dL [facility] Comment:Diabetes: >=200 mg/d L plus symptoms Blood Urea Nitrogen 10 10 - 20 mg/dL [facility] Creatinine 0.82 0.80 - 1.50 mg/dL [facility] Sodium 142 135 - 145 mmol/L [facility] Potassium 4.4 3.5 - 5.0 mmol/L [facility] Comment: Please note: ??Patients with WBC >100,000 may have falsely elevated Potassium levels. ??For accurate Potassium quantification in these patients send serum separator tube (gold top) for subsequent determinations. ??Contact the Clinical Chemistry Laboratory if there are any questions. Chloride 105 98 - 107 mmol/L [facility] Carbon Dioxide 26 22 - 31 mmol/L [facility] Anion Gap 11 5 - 15 mmol/L [facility] Calcium 9.7 8.5 - 10.5 mg/dL [facility] Est Glomerular Filtration Rate 104 >=60 mL/min/1. 73 m?? [facility] Comment: This patient's estimated GFR was [...] Pieter Rios III, MD CHEMISTRY ORDERABL ES [facility] [place] [address] * (ABNORMAL) Urinalysis Microscopic Exam (01/04/2024 11:28 AM EST) RBC, Urine 4(H) 0 - 3 /[facility]PF [facility] WBC, Urine <1 0 - 3 /[facility] Bacteria, Urine Rare(A) None /HPF [facility] Squamous Epithelial Cells Raw Data, Urine <1 <=4 /HPF [facility] Clean Catch Urine 01/04/2024 11:28 AM EST 01/04/2024 11:42 AM EST Narrative Resulting Agency Comment Spec In Lab Geno Walker APRN URINE ORDERABLES Performing Organization Address [facility] Co de Phone Number [facility] [place] [address] * (ABNORMAL) Urinalysis with reflex Culture (01/04/2024 11:28 AM EST) Glucose, Urine Dipstick Negative Negative mg/dL [facility] Protein, Urine Dipstick Trace(A) Negative mg/dL [facility] Bilirubin, Urine Dipstick Negative Negative mg/dL [facility] Comment: Clinical correlation required for positive Urine Bilirubin results as false positive may occur with some drugs and drug related products. If a false positive is suspected a serum total bilirubin should be considered if clinically indicated. Urobilinogen, Urine Dipstick Normal Normal mg/dL [facility] pH, Urn (dipstick) 7.0 5.0 - 8.0 [facility] Blood, Urine Dipstick Large(A) Negative mg/dL [facility] Ketone, Urine Dipstick Negative Negative mg/dL [facility] Nitrite, Urine Dipstick Negative Negative [facility] Leukocytes, Urine Dipstick Negative Negative [facility] Appearance, Urine Dipstick Clear Clear [facility] Specific [place] Urine Automated 1.004(L) 1.005 - 1.030 [facility] Color, Urine Dipstick Yellow Yellow [facility] Reflex to Culture No [facility] Clean Catch Urine 01/04/2024 11:28 AM EST 01/04/2024 11:42 AM EST Narrative Resulting Agency Comment Spec In Lab Geno Walker APRN URINE ORDERABLES [facility] [place] [address] documented in this encounter Visit Diagnoses Diagnosis Hematuria, unspecified type documented in this encounter Care Teams Rrt Relationship Specialty Start Date End Date Amira Hooks PA [address] [place] [address] PCP - General Family Medicine 07/25/22 documented as of this encounter
--- OUTSIDE RECORDS SUMMARY | 2024-07-21 11:26 | XMS_ITS | Encounter Summary ---
[place] [address] Care Team Providers Care Vessel Traffic Officer Name Role Phone Amira Hooks Primary Care Provider Encounter Details Date Type Department Care Team (Late st Contact Info) Description 02/23/2024 Telephone [place] [address] Maihn Helms Social History Tobacco Use Types Packs/Day [...] - 02/23/2024 8:41 AM EDT Rolo Aguilar [id number] Diagnosis/Indication: heartburn Please review patient chart to [...] procedure? No You must have a responsible democrat who will drive you to your procedure, stay on campus for the entire duration of your procedure, and drive you home from your procedure. Who will likely be your local company refrigerated truck driver for the procedure? *Please Verify the [...] 10:[address] [place] [address] Rachel Carrasco MD [facility] [place] [address] 09/21/2024 11:00 AM EST Office [place] [address] Rachel Carrasco MD [facility] [place] [address] documented as of this encounter Visit Diagnoses Not on filedocumented in this encounter Care Teams Vessel Traffic Officer Relationship Specialty Start Date End Date Amira Hooks [place] [address] [place] [address] PCP - General Family Medicine 07/25/22 documented as of this encounter
--- OUTSIDE RECORDS SUMMARY | 2024-07-21 11:26 | XMS_ITS | Encounter Summary ---
[place] [address] Care Team Providers Care Manager Mba Name Role Phone Amira Hooks Primary Care Provider Encounter Details Date Type Department Care Team (Late Contact Info) Description 04/02/2024 [place] [address] Michelle Reed, RN Social History Tobacco Use Types Packs/Day Years Used Date Smoking Tobacco: Former Cigarettes 1.5 15 1 - 2009 Smokeless Tobacco: Former Chew Quit: 2013 Alcohol Use Standard Drinks/Week Comments No 0 (1 standard drink = 0.6 oz pur e alcohol) [facility] Inpatient Questions Answer Date Recorded [...] 10:[address] [place] [place] [address] Rachel Carrasco MD [facility] [place] [address] 09/21/2024 11:00 AM EST Office Visit Urology at [facility] [address] Rachle Carrasco MD [facility] [place] [address] documented as of this encounter Visit Diagnoses Not on filedocumented in this encounter Care Teams Manager Mba Relationship Specialty Start Date End Date Amira Hooks PA [address] [place] [address] PCP - General Family Medicine 07/25/22 documented as of this encounter
--- OUTSIDE RECORDS SUMMARY | 2024-07-21 11:26 | XMS_ITS | Encounter Summary ---
Author Organization [facility] [place] [address] Care Team Providers Care Sessions Clerk Name Role Phone Amira Hooks Primary Care Provider [phone] Encounter Details Date Type Department Care Team [...] 10:[address] Scan at [facility] [place] [address] Rachel Carrasco MD [facility] [place] [address] 09/21/2024 11:00 AM EST [place] [address] Rachel Carrasco MD [facility] [place] [address] documented as of this encounter Visit Diagnoses Not on filedocumented in this encounter Care Teams Sessions Clerk Relationship Specialty Start Date End Date Amira Hooks PA [address] [place] [address] PCP - General Family Medicine 07/25/22 documented as of this encounter
--- OUTSIDE RECORDS SUMMARY | 2024-07-21 11:26 | XMS_ITS | Encounter Summary ---
Author Organization [facility] [place] [address] Care Team Providers Care Galvanizer Zinc Name Role Phone Amira Hooks Primary Care [...] AM EST Appointment CT Scan at [facility] [place] [address] Rachel Carrasco MD [facility] [place] [address] 09/21/2024 11:00 AM EST [place] [address] Rachel Carrasco MD [facility] [place] [address] documented as of this encounter Visit Diagnoses Not on filedocumented in this encounter Care Teams Galvanizer Zinc Relationship Specialty Start Date End Date Amira Hooks PA [address] [place] [address] PCP - General Family Medicine 07/25/22 documented as of this encounter
--- OUTSIDE RECORDS SUMMARY | 2024-07-21 11:26 | XMS_ITS | Encounter Summary ---
[place] [address] Care Team Providers Care Coal Hauler Operator Name Role Phone Amira Hooks Primary Care Provider [phone] Encounter Details Date Type Department Care Team (Late st Contact Info) Description 04/08/2024 [place] [address] Xenia Mcrae RN Social History Tobacco Use Types Packs/Day Years Used Date Smoking Tobacco: Former Cigarettes 1.5 15 1 - 2009 Smokeless Tobacco: Former Chew Quit: 2013 Alcohol Use Standard Drinks/Week Comments No 0 (1 standard drink = 0.6 oz pur e alcohol) [facility] Inpatient Questions Answer Date Recorded Does Anyone [...] - 04/08/2024 2:46 PM EDT Copied from [facility] #[id number]. Topic: Specialty Dept CRMs - Medication Issues [...] 10:[address] [place] [place] [address] Rachel Carrasco MD [facility] [place] [address] 09/21/2024 11:00 AM EST [place] [address] Rachel Carrasco MD [facility] [place] [address] documented as of this encounter Visit Diagnoses Not on filedocumented in this encounter Care Teams Coal Hauler Operator Relationship Specialty Start Date End Date Amira Hooks PA [address] [place] [address] PCP - General Family Medicine 07/25/22 documented as of this encounter
--- OUTSIDE RECORDS SUMMARY | 2024-07-21 11:26 | XMS_ITS | Encounter Summary ---
Author Organization [facility] [place] [address] Care Team Providers Care Superintendent Horticulture Name Role Phone Amira Hooks Primary Care [...] 10:[address] Scan at [facility] [place] [address] Rachel Carrasco MD [facility] [place] [address] 09/21/2024 11:00 AM EST [place] [address] Rachel Carrasco MD [facility] [place] [address] documented as of this encounter Visit Diagnoses Not on filedocumented in this encounter Care Teams Superintendent Horticulture Relationship Specialty Start Date End Date Amira Hooks PA [address] [place] [address] PCP - General Family Medicine 07/25/22 documented as of this encounter
--- OUTSIDE RECORDS SUMMARY | 2024-07-21 11:26 | XMS_ITS | Encounter Summary ---
Author Organization [facility] [place] [address] Care Team Providers Care Detective Precinct Name Role Phone Amira Hooks Primary Care Provider [phone] Encounter Details Date Type Department Care Team [...] 10:[address] Scan at [facility] [place] [address] Rachel Carrasco MD [facility] [place] [address] 09/21/2024 11:00 AM EST Office [place] [address] Rachel Carrasco MD [facility] [place] [address] documented as of this encounter Visit Diagnoses Not on filedocumented in this encounter Care Teams Detective Precinct Relationship Specialty Start Date End Date Amira Hooks PA [address] [place] [address] PCP - General Family Medicine 07/25/22 documented as of this encounter
--- OUTSIDE RECORDS SUMMARY | 2024-07-21 11:26 | XMS_ITS | Encounter Summary ---
Author Organization [facility] Address [facility] [place] [address] Care Team Providers Care Trade Manager Name Role Phone Amira Hooks Primary Care Provider Encounter Details Date Type Department Care Team (Latest Contact Info) Description 03/08/2024 10:02 AM EDT - 03/08/2024 11:27 AM EDT Hospital En[place] [address] Radu Silveira MD [facility] [place] [address] Discharge Disposition: Home Social History Tobacco Use [...] the day after the procedure, use an mefu-odc-tyejivo spray to numb your throat. Sucking on [...] occurs, please contact your Doctor. Please call [phone] before 8pm Mon-Fri with problems, questions or concerns. If you call after 8pm or on weekends, call the Hospital at [phone] and ask to speak to the Teacher Visually Impaired check writer salesperson and the tag press operator will contact that person for you. [...] any problems. Where can you learn more? [facility] View your After Visit Summary and more online at [email or web address] If you would like to provide [...] cost to you. Content Version: 12.2 ?? [id number] Skype. Care instructions adapted under license by [facility]. If you have questions about a medical condition or this instruction, always ask your healthcare professional. [employer] disclaims any warranty or liability for your [...] 03/26/2024 ipratropium (ATROVENT) 21 mcg (0.03 %) [facility], Non-Aerosol INSTILL 2 SPRAYS VIA NOSTRILS AT [...] Operative Note Patient Name: Rolo Aguilar : [id number] MR#: [id number] Case Date: 03/08/2024 Surgeon: Surgeon(s) and Role: * Radu Silveira MD - Primary Procedure(s): EGD WITH BIOPSY (WRVU 2.39) Please see Provation report for details. documented in this encounter Plan of Treatment Upcoming Encounters Date Type Department Care Team (Late st Contact Info) Description 09/21/2024 10:[address] [place] [place] [address] Rachel Carrasco MD [facility] [address] 09/21/2024 11:00 AM EST [place] [address] Rachel Carrasco MD [facility] [place] [address] documented as of this encounter Procedures Procedure Name Priority Date/Time Associated Diagnosis Comments SPECIMEN TO PATHOLOGY Routine 03/08/2024 10:54 AM EDT SPECIMEN TO PATHOLOGY Routine 03/08/2024 10:54 AM EDT SPECIMEN TO PATHOLOGY Routine 03/08/2024 10:54 AM EDT SURGICAL PATHOLOGY REPORT Routine 03/08/2024 10:49 AM EDT Upper Gi Endoscopy, Biopsy ([id number]) 03/08/2024 10:38 AM EDT Dyspepsia Screening for colon cancer documented in this encounter Results * Specimen to Pathology (03/08/2024 10:54 AM EDT) AP Specimen 03/08/2024 10:5 4 AM EDT 03/08/2024 10:54 AM EDT Narrative [facility] - 03/08/2024 10:54 AM EDT Specimen requisition ordered. ??Separate Pathology report to follow Radu Silveira MD PATHOLOGY/CYTOLOGY [place] Performing Organization Address [facility] [place] [address] * Specimen to Pathology (03/08/2024 10:54 AM EDT) AP Specimen 03/08/2024 10:5 4 AM EDT 03/08/2024 10:54 AM EDT Narrative [facility] - 03/08/2024 10:54 AM EDT Specimen requisition ordered. ??Separate Pathology report to follow Radu Silveira MD PATHOLOGY/CYTOLOGY [place] Performing Organization Address [facility] [place] [address] * Specimen to Pathology (03/08/2024 10:54 AM EDT) AP Specimen 03/08/2024 10:5 4 AM EDT 03/08/2024 10:54 AM EDT Narrative [facility] - 03/08/2024 10:54 AM EDT Specimen requisition ordered. ??Separate Pathology report to follow Radu Silveira MD PATHOLOGY/CYTOLOGY [place] Performing Organization Address [facility] [place] [address] * Surgical Pathology Report (03/08/2024 10:49 AM EDT) Final Diagnosis ? Location: 4T; EA11; A The signing [...] Tyson Verified: ??03/19/2024 15:53 ??Pathologist Performed at: ??-[facility] [place], [place] [address] Tree Deadener: Rosendo Hawkins MD, FCAP, ??CLIA Certificate: [id number] SPECIMEN(S) SUBMITTED A - duodenal biopsies, biopsy [...] labeled C1. ??sdy 03/19/2024 3:53 PM EDT [facility] GI Biopsy 03/08/2024 10:4 9 AM EDT 03/08/2024 10:49 AM EDT GI Biopsy 03/08/2024 10:4 9 AM EDT 03/08/2024 10:49 AM EDT GI Biopsy 03/08/2024 10:4 9 AM EDT 03/08/2024 10:49 AM EDT Radu Silveira MD PATHOLOGY/CYTOLOGY [address] [facility] [place] [place] [address] documented in this encounter Visit Diagnoses Not [...] CRNA) documented in this encounter Care Teams Trade Manager Relationship Specialty Start Date End Date Amira Hooks PA [address] [place] [address] PCP - General Family Medicine 07/25/22 documented as of this encounter
--- OUTSIDE RECORDS SUMMARY | 2024-07-21 11:26 | XMS_ITS | Encounter Summary ---
Author Organization [facility] [place] [address] Care Team Providers Care Photographic Supervisor Name Role Phone Amira Hooks Primary Care Provider Encounter Details Date Type Department Care Team (Late st Contact Info) Description 01/16/2024 12:02 PM EST Anesthesia Event [place] [address] Jesse Ellis MD [facility] [place] [address] Willie Gonzalez CRNA [facility] [place] [address] Anesthesia Record Procedure Summary Procedure Name Responsible [...] Hewitt MD [facility] MAIN OR ??? PRO UNLISTED LAPAROSCOPIC PX LVR N/A 07/21/2018 LAPAROSCOPIC LIVER BIOPSY (WRVU 16.52) performed by Colt Hewitt MD at [facility] MAIN OR ??? PRO UPPER GI ENDOSCOPY, BIOPSY N/A 12/29/2017 UPPER GASTROINTESTINAL ENDOSCOPY,WITH BIOPSY SINGLE OR MULTIPLE (WRVU 2.49) performed by Yusuf Tucker MD at [facility] ENDOSCOPY ??? PRO UPPER GI ENDOSCOPY, DIAGNOSTIC N/A 12/29/2017 EGD, UPPER GI ENDOSCOPY performed by Yusuf Tucker MD at [facility] ENDOSCOPY ??? TONSILLECTOMY Social History [...] risks discussed with patient. Plan discussed with BIZTALK SOFTWARE DEVELOPER and attending. Anesthesia Screening documented in this encounter Plan of Treatment Upcoming Encounters Date Type Department Care Team (Late st Contact Info) Description 09/21/2024 10:[address] [place] [address] Rachel Carrasco MD [facility] [place] [address] 09/21/2024 11:00 AM EST Office [place] [address] Rachel Carrasco MD [facility] [place] [address] documented as of this encounter Visit Diagnoses Not on filedocumented in this encounter Care Teams Photographic Supervisor Relationship Specialty Start Date End Date Amira Hooks PA [address] [address] PCP - General Family Medicine 07/25/22 documented as of this encounter
--- OUTSIDE RECORDS SUMMARY | 2024-07-21 11:26 | XMS_ITS | Encounter Summary ---
[place] [address] Care Team Providers Care Radiotelegraph Operator Name Role Phone mAira Hooks Primary Care Provider [phone] Encounter Details Date Type Department Care Team (Late st Contact Info) Description 03/31/2024 Telephone [place] [address] Joss Johnson, RN Social History Tobacco Use Types Packs/Day Years Used Date Smoking Tobacco: Former Cigarettes 1.5 15 1 - 2009 Smokeless Tobacco: Former Chew Quit: 2013 Alcohol Use Standard Drinks/Week Comments No 0 (1 standard drink = 0.6 oz pur e alcohol) [facility] Inpatient Questions Answer Date Recorded Does [...] Encounter - Joss Johnson RN - 03/31/2024 3:36 PM EDT Copied from CRM #[id number]. Topic: Specialty Dept CRMs - Triage >> [...] 03/16 Additional Comments: Patient was seen a [facility] on 03/16 for excruciating pain [...] 10:[address] [place] [address] Rachel Carrasco MD [facility] [place] [address] 09/21/2024 11:00 AM EST Office [place] [address] Rachel Carrasco MD [facility] [place] [address] documented as of this encounter Visit Diagnoses Not on filedocumented in this encounter Care Teams Radiotelegraph Operator Relationship Specialty Start Date End Date Amira Hooks PA [address] [place] [address] PCP - General Family Medicine 07/25/22 documented as of this encounter
--- OUTSIDE RECORDS SUMMARY | 2024-07-21 11:26 | XMS_ITS | Encounter Summary ---
Author Organization [facility] [place] [address] Care Team Providers Care Senior Benefits Specialist Name Role Phone Amira Hooks Primary [...] 10:[address] Scan at [facility] [place] [address] Rachel Carrasco MD [facility] [place] [address] 09/21/2024 11:00 AM EST [place] [address] Rachel Carrasco MD [facility] [place] [address] documented as of this encounter Visit Diagnoses Not on filedocumented in this encounter Care Teams Senior Benefits Specialist Relationship Specialty Start Date End Date Amira Hooks PA [address] [place] [address] PCP - General Family Medicine 07/25/22 documented as of this encounter
--- OUTSIDE RECORDS SUMMARY | 2024-07-21 11:26 | XMS_ITS | Encounter Summary ---
[place] [address] Care Team Providers Care Marine Cargo Specialist Name Role Phone Amira Hooks Primary Care Provider Encounter Details Date Type Department Care Team (Late st Contact Info) Description 03/05/2024 Telephone [place] [address] Salima Pereira Social History Tobacco Use Types [...] 10:[address] [place] [place] [address] Rachel Carrasco MD [facility] [place] [address] 09/21/2024 11:00 AM EST [place] [address] Rachel Carrasco MD [facility] [place] [address] documented as of this encounter Visit Diagnoses Not on filedocumented in this encounter Care Teams Marine Cargo Specialist Relationship Specialty Start Date End Date Amira Hooks PA [address] [place] [address] PCP - General Family Medicine 07/25/22 documented as of this encounter
--- OUTSIDE RECORDS SUMMARY | 2024-07-21 11:26 | XMS_ITS | Encounter Summary ---
Author Organization [facility] [place] [address] Care Team Providers Care Check Scaler Name Role Phone Amira Hooks Primary Care Provider Encounter Details Date Type Department Care Team (Late st Contact Info) Description 03/01/2024 [place] [address] Rachel Carrasco MD [facility] [place] [address] Social History Tobacco Use Types Packs/Day Years [...] 10:[address] [place] [address] Rachel Carrasco MD [facility] [place] [address] 09/21/2024 11:00 AM EST Office [place] [address] Rachel Carrasco MD [facility] [place] [address] documented as of this encounter Visit Diagnoses Not on filedocumented in this encounter Care Teams Check Scaler Relationship Specialty Start Date End Date Amira Hooks PA [address] [address] PCP - General Family Medicine 07/25/22 documented as of this encounter
--- OUTSIDE RECORDS SUMMARY | 2024-07-21 11:26 | XMS_ITS | Encounter Summary ---
[place] [address] Care Team Providers Care Resort Keeper Name Role Phone Amira Hooks Primary Care Provider Reason for Referral * Diagnostic Test (Routine) - Closed Specialty Diagnoses / Procedures Referred By Contac t Referred To Contact Radiology Diagnoses Hematuria, unspecified type Procedures CT Abdomen & Pelvis wo Contrast Amira Hooks PA [address] [place] [address] [facility] [place] [address] Referral ID Status Reason Start Date Expiration Date V isits Requested Visits Authorized [id number] Closed Specialty Service Requested 12/22/2023 06/21/2025 1 1 Reason for Visit * Diagnostic Test (Routine) - Closed Specialty Diagnoses / Procedures Referred By Contac t Referred To Contact Radiology Diagnoses Hematuria, unspecified type Procedures CT Abdomen & Pelvis wo Contrast Amira Hooks PA [address] [place] [address] [facility] [place] [address] Referral ID Status Reason Start Date Expiration Date V isits Requested Visits Authorized [id number] Closed Specialty Service Requested 12/22/2023 06/21/2025 1 1 Encounter Details Date Type Department Care Team (Latest Contact Info) Description 12/24/2023 2:20 PM EST - 12/24/2023 11:59 PM EST Hospital Encounter CT Scan [place] [facility] [place] [address] Amira Hooks PA [address] [place] [address] Hematuria, unspecified type Discharge Disposition: Home Social [...] 03/26/2024 ipratropium (ATROVENT) 21 mcg (0.03 %) [facility], Non-Aerosol INSTILL 2 SPRAYS VIA NOSTRILS AT [...] 10:[address] [place] [address] Rachel Carrasco MD [facility] [place] [address] 09/21/2024 11:00 AM EST Office [place] [address] Rachel Carrasco MD [facility] [place] [address] documented as of this encounter Procedures Procedure [...] who have questions please contact the health healthcare economics manager that requested your imaging first. ? [...] further reduced by body habitus and decreased ynrrbp-wp-uuwkj ratio. Lower chest: Trace bilateral pleural effusions. [...] inflammation. Abdominal wall: Partially excluded from the yjxwr-lp-tarl due to body habitus. No appreciable abdominal [...] further reduced by body habitus and decreased wxwpvu-vl-duhbu ratio. Lower chest: Trace bilateral pleural effusions. [...] inflammation. Abdominal wall: Partially excluded from the ajhqd-nn-fvqb due to bodyhabitus. No appreciable abdominal wall [...] patients who have questions please contactthe health healthcare economics manager that requested your imaging first. Amira DENNIS IMG CT ORDERABLES documented in this encounter Visit Diagnoses Diagnosis Hematuria, unspecified type documented in this encounter Care Teams Resort Keeper Relationship Specialty Start Date End Date Amira Hooks PA [address] [place] [address] PCP - General Family Medicine 07/25/22 documented as of this encounter
--- OUTSIDE RECORDS SUMMARY | 2024-07-21 11:26 | XMS_ITS | Encounter Summary ---
Author Organization [facility] Address [facility] [place] [address] Care Team Providers Care Manager Financial Services Name Role Phone Amira Hooks Primary Care Provider Encounter Details Date Type Department Care Team (Late st Contact Info) Description 03/08/2024 10:35 AM EDT Anesthesia [place] [address] Luis Manuel Moncada MD [facility] DR [place] [address] Anesthesia Record Procedure Summary Procedure Name Responsible [...] Procedure Summary Date: 03/08/24 Room / Location: [facility] ENDO 5 / [facility] ENDOSCOPY Anesthesia Start: 1035 Anesthesia Stop: [...] Anesthesia Providers: Anesthesiologist: Luis Manuel Moncada MD ASSISTANT PLANT CONTROLLER: Ava Morris CRNA Vitals Value Taken Time BP 103/49 03/08/24 1110 Temp Pulse Resp 14 03/08/24 1110 SpO2 98 % 03/08/24 1120 Pain Level 0 03/08/24 1110 Vitals shown include unfiled device data. Patient Location: PACU/SCP Level of Consciousness: Awake and Alert Pain [...] y.o. male. Procedure(s): EGD, [facility] Patient Active Problem List Diagnosis Date [...] Colt Hewitt MD [facility] MAIN OR ??? PRO UNLISTED LAPAROSCOPIC PX LVR N/A 07/21/2018 LAPAROSCOPIC LIVER BIOPSY (WRVU 16.52) performed by Colt Hewitt MD at [facility] MAIN OR ??? PRO UPPER GI ENDOSCOPY, BIOPSY N/A 12/29/2017 UPPER GASTROINTESTINAL ENDOSCOPY,WITH BIOPSY SINGLE OR MULTIPLE (WRVU 2.49) performed by Yusuf Tucker MD at [facility] ENDOSCOPY ??? PRO UPPER GI ENDOSCOPY, DIAGNOSTIC N/A 12/29/2017 EGD, UPPER GI ENDOSCOPY performed by Yusuf Tucker MD at [facility] ENDOSCOPY ??? TONSILLECTOMY Social History [...] BMI: IBW: Last edited 03/08/24 1011 by RH Airway Assessment: Mallampati: II TM distance: >3 [...] risks discussed with patient. Plan discussed with ASSISTANT PLANT CONTROLLER. Anesthesia Screening documented in this encounter Plan of Treatment Upcoming Encounters Date Type Department Care Team (Late st Contact Info) Description 09/21/2024 10:[address] [place] [phone] Rachel Carrasco MD [facility] [place] [address] 09/21/2024 11:00 AM EST [place] [phone] Rachel Carrasco MD [facility] [place] [address] documented as of this encounter Visit Diagnoses [...] mg documented in this encounter Care Teams Manager Financial Services Relationship Specialty Start Date End Date Amira Hooks PA [address] [address] PCP - General Family Medicine 07/25/22 documented as of this encounter
--- OUTSIDE RECORDS SUMMARY | 2024-07-21 11:26 | XMS_ITS | Encounter Summary ---
[place] [address] Care Team Providers Care Film Crew Member Name Role Phone Amira Hooks Primary Care Provider [phone] Reason for Visit * Auth/Cert (Routine) Specialty Diagnoses / Procedures Referred By Zeyad mishra Referred To Contact Diagnoses LEFT URETERAL STONE/HEMATURIA WORK UP Procedures PRO CYSTOURETHROSCOPY PRO PLMT URTRL STENT PRQ PRE-EXISTING NFROS TRACT PRO CYSTO/URETERO/PYELOSCOPY W/LITHOTRIPSY CYSTO, CYSTOURETHROSCOPY, DIAGNOSTIC (WRVU 1.53) PLCMNT URETERAL STENT, PERC, IMG GUIDANCE; EXISTING NEPH TRACT (WRVU 3.96) CYSTOURETEROSCOPY, LITHOTRIPSY (WRVU 7.5) MODIFIER HOLMIUM LASER Rachel Carrasco MD [facility] [place] [address] [facility] Referral ID Status Reason Start Date Expiration Date Visits Re quested Visits Authorized [id number] 1 1 Encounter Details Date Type Department Care Team (Latest Contact Info) Description 04/09/2024 10:00 AM EDT - 04/09/2024 1:48 PM EDT Hospital Encounter [place] [address] Rachel Carrasco MD [facility] [place] [address] Hematuria, unspecified type Discharge Disposition: Home Social [...] to urinate please call our office at [phone] before 5PM or [phone] after hours. Call Doctor for: Please call if you have copious blood in your urine, severe back or side pain, pain not controlled by pain medications, persistent nausea and vomiting, or for any fevers greater [id number] F. The number for questions is [phone] before 5 PM weekdays and [phone] after 5 PM and weekends. Pain Medication: [...] 03/26/2024 ipratropium (ATROVENT) 21 mcg (0.03 %) [place], Non-Aerosol INSTILL 2 SPRAYS VIA NOSTRILS AT [...] [facility] MAIN OR PRO UNLISTED LAPAROSCOPIC PX LVR N/A 07/21/2018 LAPAROSCOPIC LIVER BIOPSY (WRVU 16.52) performed by Colt Hewitt MD at [facility] MAIN OR PRO UPPER GI ENDOSCOPY, BIOPSY N/A 12/29/2017 UPPER GASTROINTESTINAL ENDOSCOPY,WITH BIOPSY SINGLE OR MULTIPLE (WRVU 2.49) performed by Yusuf Tucker MD at [facility] ENDOSCOPY PRO UPPER GI ENDOSCOPY, BIOPSY N/A 03/08/2024 EGD WITH BIOPSY (WRVU 2.39) performed by Radu Silveira MD at [facility] ENDOSCOPY PRO UPPER GI ENDOSCOPY, DIAGNOSTIC N/A 12/29/2017 EGD, UPPER GI ENDOSCOPY performed by Yusuf Tucker MD at [facility] ENDOSCOPY TONSILLECTOMY Allergies: Allergies Allergen Reactions [...] Carrasco MD - 04/09/2024 11:54 AM EDT [facility] [place] Patient Name: Rolo Aguilar : [id number] MR#: [id number] Case Date: 04/09/2024 Surgeon: Surgeons and Role: [...] 10:[address] [place] [address] Rachel Carrasco MD [facility] [place] [address] 09/21/2024 11:00 AM EST [place] [phone] Rachel Carrasco MD [facility] [place] [address] documented as of this encounter Procedures Procedure Name Priority Date/Time Associated Diagnosis Comments XR FLUORO NO RAD <1HR - OR USE Routine 04/09/2024 2:12 PM EDT Cystoscopy, Insert Ureteral Stent (28785) Yes 04/09/2024 11:16 AM EDT LEFT URETERAL [...] MD CHEMISTRY ORDERABLES [facility] [place] [address] * Scan Doc: Implantable Devices (04/09/2024 12:00 [...] needed.) documented in this encounter Care Teams Film Crew Member Relationship Specialty Start Date End Date Amira Hooks PA [address] [place] [address] PCP - General Family Medicine 07/25/22 documented as of this encounter
--- OUTSIDE RECORDS SUMMARY | 2024-07-21 11:26 | XMS_ITS | Encounter Summary ---
[place] [address] Care Team Providers Care Instrument Installer Name Role Phone Amira Hooks Primary Care Provider Reason for Visit * Diagnostic Test (Routine) - Closed Specialty Diagnoses / Procedures Referred By Zeyad mishra Referred To Contact Gastroenterology Diagnoses Dyspepsia Abdominal bloating HBT - laculose - bloating Procedures Breath Hydrogen Test Joan Castro MD [facility] [place] [address] [facility] [place] [address] [place] [address] Referral ID Status Reason Start Date Expiration Date V isits Requested Visits Authorized [id number] Closed Consult, Test & Treat 11/26/2023 11/25/2024 1 1 Encounter Details Date Type Department Care Team (Latest Contact Info) Description 02/14/2024 10:00 AM EDT Procedure visit Gastroenterology at [place] [phone] Dyspepsia; Abdominal bloating Social History Tobacco Use [...] Breath Testing in Gastrointestinal Disorders: The [place] Consensus (Am J Gastroenterol 2017; 112(5):775-84. Apositive breath test is defined as a rise in hydrogen production >20 ppm compared to baseline within 90 minutes. Methane-positive is defined by at least 10 ppm production of methane. Signed, Davon Lay APRN Gastroenterology and Hepatology [place] [id number] P: [phone] F: [phone] Copy: SONNY Espinoza documented in this encounter Plan of Treatment Upcoming Encounters Date Type Department Care Team (Late st Contact Info) Description 09/21/2024 10:[address] [place] [place] [address] Rachel Carrasco MD [facility] [place] [address] 09/21/2024 11:00 AM EST [place] [address] Rachel Carrasco MD [facility] [place] [address] documented as of this encounter Visit Diagnoses Diagnosis Dyspepsia Dyspepsia and other specified disorders of function of stomach Abdominal bloating Flatulence, eructation, and gas pain documented in this encounter Care Teams Instrument Installer Relationship Specialty Start Date End Date Amira Hooks PA [address] [address] PCP - General Family Medicine 07/25/22 documented as of this encounter
--- OUTSIDE RECORDS SUMMARY | 2024-07-21 11:26 | XMS_ITS | Encounter Summary ---
[place] [address] Care Team Providers Care Waiter/Waitress Formal Name Role Phone Amira Hooks Primary Care Provider [phone] Encounter Details Date Type Department Care Team (Late st Contact Info) Description 04/01/2024 [place] [phone] Michelle Reed, RN Social History Tobacco Use [...] with no answer. Left message on personal Quosismail to advise patient to hold Eliquis 48 hours prior to procedure on 04/09 Will also send message to patient through [facility] * Telephone Encounter - Michelle Reed RN [...] RN Sent: 04/01/2024 7:06 AM EDT To: [facility] [place] Subject: dos 04/09 Good morning, In checking the chart we found no pre-op instructions for Eliquis. Please contact the patient directly with instructions if necessary. Thank you, Gabriel ALEJANDRO PCC documented in this encounter Plan of Treatment Upcoming Encounters Date Type Department Care Team (Late st Contact Info) Description 09/21/2024 10:[address] [place] [address] Rachel Carrasco MD [facility] [place] [address] 09/21/2024 11:00 AM EST Office [place] [address] Rachel Carrasco MD [facility] [place] [address] documented as of this encounter Visit Diagnoses Not on filedocumented in this encounter Care Teams Waiter/Waitress Formal Relationship Specialty Start Date End Date Amira Hooks PA [address] [place] [address] PCP - General Family Medicine 07/25/22 documented as of this encounter
--- OUTSIDE RECORDS SUMMARY | 2024-07-21 11:26 | XMS_ITS | Encounter Summary ---
Author Organization [facility] [place] [address] Care Team Providers Care Lace Paper Machine Operator Name Role Phone Amira Hooks Primary Care Provider Encounter Details Date Type Department Care Team (Late st Contact Info) Description 02/18/2024 [place] [address] Rachel Carrasco MD [facility] [place] [address] Hematuria, unspecified type Social History Tobacco Use [...] AM [place] [address] Rachel Carrasco MD [facility] [place] [address] 09/21/2024 11:00 AM EST [place] [address] Rachel Carrasco MD [facility] [place] [address] documented as of this encounter Results * [...] Carrasco MD CHEMISTRY ORDERABLES [facility] [place] [address] documented in this encounter Visit Diagnoses Diagnosis Hematuria, unspecified type documented in this encounter Care Teams Lace Paper Machine Operator Relationship Specialty Start Date End Date Amira Hooks PA [address] [place] [address] PCP - General Family Medicine 07/25/22 documented as of this encounter
--- OUTSIDE RECORDS SUMMARY | 2024-07-21 11:26 | XMS_ITS | Encounter Summary ---
Author Organization [facility] [place] [address] Care Team Providers Care Supervisor Last Model Department Name Role Phone Amira Hooks Primary Care Provider Encounter Details Date Type Department Care Team (Late st Contact Info) Description 03/08/2024 11:00 AM EDT - 03/08/2024 11:30 AM EDT [place] [address] Radu Silveira MD [facility] [place] [address] EGD WITH BIOPSY (WRVU 2.39) Social History Tobacco Use Types Packs/Day Years Used Date Smoking Tobacco: Former Cigarettes 1.5 15 1 5 - 2009 Smokeless Tobacco: Former Chew Quit: 2013 Tobacco Cessation:Counseling Given: Not Answered Alcohol Use Standard Drinks/Week Comments No 0 (1 standard drink = 0.6 oz pur e alcohol) FOR[facility]LY [facility], [facility] Inpatient Questions Answer Date Recorded Does Anyone [...] the day after the procedure, use an zdgl-dxz-lpiizll spray to numb your throat. Sucking on [...] occurs, please contact your Doctor. Please call [phone] before 8pm Mon-Fri with problems, questions or concerns. If you call after 8pm or on weekends, call the Hospital at [phone] and ask to speak to the Sieve Repairer environmental planning engineer and the timber incisor operator will contact that person for you. When should you call for help? Call [phone] anytime you think you may need emergency [...] any problems. Where can you learn more? [facility] View your After Visit Summary and more online at [email or web address] If you would like to provide feedback [...] cost to you. Content Version: 12.2 ?? [id number] [employer]. Care instructions adapted under license by [facility]. If you have questions about a medical condition or this instruction, always ask your healthcare professional. [employer] disclaims any warranty or liability for your [...] 03/26/2024 ipratropium (ATROVENT) 21 mcg (0.03 %) [place], Non-Aerosol INSTILL 2 SPRAYS VIA NOSTRILS AT [...] Operative Note Patient Name: Rolo Aguilar : [id number] MR#: [id number] Case Date: 03/08/2024 Surgeon: Surgeon(s) and Role: * Radu Silveira MD - Primary Procedure(s): EGD WITH BIOPSY (WRVU 2.39) Please see Provation report for details. documented in this encounter Plan of Treatment Upcoming Encounters Date Type Department Care Team (Late st Contact Info) Description 09/21/2024 10:[address] [place] [address] Rachel Carrasco MD [facility] [place] [address] 09/21/2024 11:00 AM [place] [address] Rachel Carrasco MD [facility] [place] [address] documented as of this encounter Procedures Procedure Name Priority Date/Time Associated Diagnosis Comments SPECIMEN TO PATHOLOGY Routine 03/08/2024 10:54 AM EDT SPECIMEN TO PATHOLOGY Routine 03/08/2024 10:54 AM EDT SPECIMEN TO PATHOLOGY Routine 03/08/2024 10:54 AM EDT SURGICAL PATHOLOGY REPORT Routine 03/08/2024 10:49 AM EDT Upper Gi Endoscopy, Biopsy ([id number]) 03/08/2024 10:38 AM EDT Dyspepsia Screening for colon cancer documented in this encounter Results * Specimen to Pathology (03/08/2024 10:54 AM EDT) AP Specimen 03/08/2024 10:5 4 AM EDT 03/08/2024 10:54 AM EDT Narrative [facility] - 03/08/2024 10:54 AM EDT Specimen requisition ordered. ??Separate Pathology report to follow Radu Silveira MD PATHOLOGY/CYTOLOGY O [place] Performing Organization Address [facility] [place] [address] * Specimen to Pathology (03/08/2024 10:54 AM EDT) AP Specimen 03/08/2024 10:5 4 AM EDT 03/08/2024 10:54 AM EDT Narrative [facility] - 03/08/2024 10:54 AM EDT Specimen requisition ordered. ??Separate Pathology report to follow Radu Silveira MD PATHOLOGY/CYTOLOGY [place] Performing Organization Address [facility] [place] [address] * Specimen to Pathology (03/08/2024 10:54 AM EDT) AP Specimen 03/08/2024 10:5 4 AM EDT 03/08/2024 10:54 AM EDT formerly [facility] - 03/08/2024 10:54 AM EDT Specimen requisition ordered. ??Separate Pathology report to follow Radu Silveira MD PATHOLOGY/CYTOLOGY [place] Performing Organization Address [facility] [place] [address] * Surgical Pathology Report (03/08/2024 10:49 AM EDT) Final Diagnosis 60 ? Location: 4T; EA11; A The [...] Tyson Verified: ??03/19/2024 15:53 ??Pathologist Performed at: ??-[facility] Dept. of Pathology, [place] [address] Drug Department Worker: oRsendo Hawkins MD, FCAP, ??CLIA Certificate: [id number] SPECIMEN(S) SUBMITTED A - duodenal biopsies, biopsy [...] labeled C1. ??sdy 03/19/2024 3:53 PM EDT [facility] GI Biopsy 03/08/2024 10:4 9 AM EDT 03/08/2024 10:49 AM EDT GI Biopsy 03/08/2024 10:4 9 AM EDT 03/08/2024 10:49 AM EDT GI Biopsy 03/08/2024 10:4 9 AM EDT 03/08/2024 10:49 AM EDT Radu Silveira MD PATHOLOGY/CYTOLOGY [address] [facility] [place] [address] documented in this encounter Visit Diagnoses Diagnosis [...] CRNA) documented in this encounter Care Teams Supervisor Last Model Department Relationship Specialty Start Date End Date Amira Hooks PA [address] [place] [address] PCP - General Family Medicine 07/25/22 documented as of this encounter
--- OUTSIDE RECORDS SUMMARY | 2024-07-21 11:27 | XMS_ITS | Encounter Summary ---
Author Organization [facility] [place] [address] Care Team Providers Care Money Room Teller Name Role Phone Amira Hooks Primary Care Provider Encounter Details Date Type Department Care Team (Late st Contact Info) Description 03/14/2023 Telephone Psychiatry [place] [phone] Joana Mabry, PhD [facility] [place] [address] Social History Tobacco Use Types Packs/Day Years [...] 10:[address] [place] [place] [phone] Rachel Carrasco MD [facility] [place] [address] 09/21/2024 11:00 AM EST [place] [address] Rachel Carrasco MD [facility] [place] [address] documented as of this encounter Visit Diagnoses Not on filedocumented in this encounter Care Teams Money Room Teller Relationship Specialty Start Date End Date Amira Hooks PA [address] [place] [address] PCP - General Family Medicine 07/25/22 documented as of this encounter
--- OUTSIDE RECORDS SUMMARY | 2024-07-21 11:27 | XMS_ITS | Encounter Summary ---
Author Organization [facility] [place] [address] Care Team Providers Care Director Of Consulting Services Name Role Phone Amira Hooks Primary Care Provider Reason for Referral * Psychiatric (Routine) - Closed Specialty Diagnoses / Procedures Referred By Contestuardo t Referred To Contact Psychiatry Diagnoses Bipolar affective disorder, remission status unspecified Panic disorder Depression with anxiety Coty Barr APRN [address] [place] [address] Bin Hughes, PhD [facility] [place] [address] Referral ID Status Reason Start Date Expiration Date V isits Requested Visits Authorized [id number] Closed Consult, Test & Treat PCP Updated and/or Approved 07/25/2022 07/25/2023 6 6 Encounter Details Date Type Department Care Team (Latest Contact Info) Description 07/25/2022 Transcribe Orders eDH Incoming Referrals [phone] Coty Barr APRN [address] [place], [place] [address] Bipolar affective disorder, remission status unspecified; Panic [...] 10:[address] [place] [place] [address] Rachel Carrasco MD [facility] [place] [address] 09/21/2024 11:00 AM EST [place] [address] Rachel Carrasco MD [facility] [place] [address] Scheduled Referrals Name Type Priority Associated Diagnoses Order Schedule Referral to Psychiatry Outpatient Referral Routine Bipolar affective disorder, remission status unspecified Panic disorder Depression with anxiety Ordered: 07/25/2022 documented as of this encounter Visit Diagnoses Diagnosis Bipolar affective disorder, remission status unspecified Panic disorder Panic disorder without agoraphobia Depression with anxiety Dysthymic disorder documented in this encounter Care Teams Director Of Consulting Services Relationship Specialty Start Date End Date Amira Hooks PA [address] [place] [address] PCP - General Family Medicine 07/25/22 documented as of this encounter
--- OUTSIDE RECORDS SUMMARY | 2024-07-21 11:27 | XMS_ITS | Encounter Summary ---
Author Organization [facility] [place] [address] Care Team Providers Care Doughnut Dough Mixer Name Role Phone Amira Hooks Primary Care Provider [phone] Encounter Details Date Type Department Care Team (Late st Contact Info) Description 04/09/2023 10:00 AM EDT Office Visit Psychiatry [place] [address] Joana Mabry, PhD [facility] [address] [place] [address] Post-traumatic stress disorder, unspecified Social History Tobacco [...] EDT INDIVIDUAL THERAPY PROGRESS NOTE CPT CODES 51203, 29574, 98415 LOCATION: Office SESSION DURATION: 45 minutes ATTENDEES: [...] emergencies, call [phone] from anywhere in the [facility]. State specific information for [place] and [place] crisis services are as follows and should be used to access local resources: [facility] Crises Services [facility] Crisis Line text or call Visit www.Convertigo for further information [place] Call your local community crisis line at: [place]: [facility] [phone] [place]: [facility] Services [phone] [place]: [facility] [phone] [place]: [facility] [phone] [place]: [facility] [phone] [place]ндрей [place]: [facility] Counseling and Support [phone] [place]: [facility] Health [phone] on weekdays 8AM-4:30PM and [phone] on nights and weekends [place]: [facility] [place]: [facility] [phone] [place]: [facility] [phone] [place]: [facility] Services, [place]: HCRS [place]: HCRS or Text [place] to [phone] For further information for [place] residents: [email or web address]/services/emergency-services/qhv-jtk-lnas National Suicide Prevention Hotline: For patients cared for in the Department of Psychiatry, you can reach your mental health clinician at [phone]. Joana Mabry, PhD documented in this encounter Plan of Treatment Upcoming Encounters Date Type Department Care Team (Late st Contact Info) Description 09/21/2024 10:[address] [place] [place] [address] Rachel Carrasco MD [facility] [place] [address] 09/21/2024 11:00 AM EST Office Visit Urology at [place] [phone] Rachel Carrasco MD [facility] [place] [address] documented as of this encounter Visit Diagnoses Diagnosis Post-traumatic stress disorder, unspecified documented in this encounter Care Teams Doughnut Dough Mixer Relationship Specialty Start Date End Date Amira Hooks PA [address] [place] [address] PCP - General Family Medicine 07/25/22 documented as of this encounter
--- OUTSIDE RECORDS SUMMARY | 2024-07-21 11:27 | XMS_ITS | Encounter Summary ---
Author Organization [facility] [place] [address] Care Team Providers Care Deal Architect Name Role Phone Bin Bowman MD Primary Care Provider Reason for Visit * Reason Comments Medication Refill Encounter Details Date Type Department Care Team (Late st Contact Info) Description 06/05/2022 Refill Cardiology at [address] [phone] Fadi Escobar MD [facility] [place] [address] Medication Refill Social History Tobacco Use Types [...] 10:[address] [place] [place] [phone] Rachel Carrasco MD [facility] [place] [address] 09/21/2024 11:00 AM EST [place] [address] Rachel Carrasco MD [facility] [place] [address] documented as of this encounter Visit Diagnoses Diagnosis Essential hypertension Unspecified essential hypertension documented in this encounter Care Teams Deal Architect Relationship Specialty Start Date End Date Bin Bowman MD [address] [place] [address] PCP - General General Internal Medicine 04/21/1707/11 documented as of this encounter
--- OUTSIDE RECORDS SUMMARY | 2024-07-21 11:27 | XMS_ITS | Encounter Summary ---
Author Organization Formerly [facility] [address] Care Team Providers Care Material Lister Name Role Phone Amira Hooks Primary Care [...] 10:[address] Scan at [facility] [place] [address] Rachel Carrasco MD [facility] [place] [address] 09/21/2024 11:00 AM EST Office [place] [address] Rachel Carrasco MD [facility] [place] [address] documented as of this encounter Visit Diagnoses Not on filedocumented in this encounter Care Teams Material Lister Relationship Specialty Start Date End Date Amira Hooks PA [address] [place] [address] PCP - General Family Medicine 07/25/22 documented as of this encounter
--- OUTSIDE RECORDS SUMMARY | 2024-07-21 11:27 | XMS_ITS | Encounter Summary ---
[place] [address] Care Team Providers Care Communication Specialist Name Role Phone Amira Hooks Primary Care Provider Reason for Referral * Consultation (Routine) - Closed Specialty Diagnoses / Procedures Referred By Zeyad t Referred To Contact Gastroenterology Diagnoses Constipation, unspecified constipation type Gastroesophageal reflux disease, unspecified whether esophagitis present motility- constipation (former magalys pt ) Amira Hooks PA [address] [place] [address] [facility] [address] Referral ID Status Reason Start Date Expiration Date V isits Requested Visits Authorized [id number] Closed Consult, Test & Treat PCP Updated and/or Approved 04/20/2023 04/19/2024 6 6 Encounter Details Date Type Department Care Team (Latest Contact Info) Description 04/20/2023 Transcribe Orders eDH Incoming Referrals [phone] Amira Hooks PA [address] [place] [address] Constipation, unspecified constipation type; Gastroesophageal reflux disease, [...] 10:[address] [place] [place] [address] Rachel Carrasco MD [facility] [place] [address] 09/21/2024 11:00 AM EST [place] [address] Rachel Carrasco MD [facility] [place] [address] Scheduled Referrals Name Type Priority Associated Diagnoses Order Schedule Referral to Gastroenterology Outpatient Referral Routine Constipation, unspecified constipation type Gastroesophageal reflux disease, unspecified whether esophagitis present Ordered: 04/20/2023 documented as of this encounter Visit Diagnoses Diagnosis Constipation, unspecified constipation type Gastroesophageal reflux disease, unspecified whether esophagitis present documented in this encounter Care Teams Communication Specialist Relationship Specialty Start Date End Date Amira Hooks PA [address] [place] [address] PCP - General Family Medicine 07/25/22 documented as of this encounter
--- OUTSIDE RECORDS SUMMARY | 2024-07-21 11:27 | XMS_ITS | Encounter Summary ---
Author Organization [facility] [place] [address] Care Team Providers Care Bulk Sealer Operator Name Role Phone Amira Hooks Primary Care Provider Encounter Details Date Type Department Care Team (Late st Contact Info) Description 12/23/2022 Telephone Psychiatry [place] [phone] Joana Mabry, PhD [facility] [place] [address] Social History Tobacco Use Types Packs/Day Years [...] 10:[address] [place] [place] [phone] Rachel Carrasco MD [facility] [place] [address] 09/21/2024 11:00 AM EST [place] [address] Rachel Carrasco MD [facility] [place] [address] documented as of this encounter Visit Diagnoses Not on filedocumented in this encounter Care Teams Bulk Sealer Operator Relationship Specialty Start Date End Date Amira Hooks PA [address] [place] [address] PCP - General Family Medicine 07/25/22 documented as of this encounter
--- OUTSIDE RECORDS SUMMARY | 2024-07-21 11:27 | XMS_ITS | Encounter Summary ---
Author Organization [facility] Address [facility] [place] [address] Care Team Providers Care Merchandise Deliverer Name Role Phone Amira Hooks Primary Care Provider [phone] Reason for Visit * Consultation (Routine) - Closed Specialty Diagnoses / Procedures Referred By Zeyad t Referred To Contact Weight and Wellness Diagnoses Class 3 severe obesity with body mass index (BMI) greater than or equal to 70 in adult, unspecified obesity type, unspecified whether serious comorbidity present Fadi Escobar MD [facility] [place] [address] [facility] [address] [place] [address] Referral ID Status Reason Start Date Expiration Date V isits Requested Visits Authorized [id number] Closed Consult, Test & Treat 12/27/2021 12/27/2022 1 1 Encounter Details Date Type Department Care Team (Late st Contact Info) Description 08/07/2022 10:00 AM EDT TH Visit (TeleHealth) Weight and Wellness at [facility] [address] [place] [address] Linh Carrillo MD [facility] DR MADELYN [place] [address] PATIENT NOT SEEN Social History Tobacco Use [...] 10:[address] [place] [address] Rachel Carrasco MD [facility] [place] [address] 09/21/2024 11:00 AM EST Office [place] [address] Rachel Carrasco MD [facility] [place] [address] Scheduled Referrals Name Type Priority Associated Diagnoses Orde r Schedule Referral to [facility] Center Outpatient Referral Routine Class 3 severe obesity with body mass index (BMI) greater than or equal to 70 in adult, unspecified obesity type, unspecified whether serious comorbidity present Ordered: 12/27/2021 documented as of this encounter Visit Diagnoses Diagnosis PATIENT NOT SEEN documented in this encounter Care Teams Merchandise Deliverer Relationship Specialty Start Date End Date Amira Hooks PA [address] [place] [address] PCP - General Family Medicine 07/25/22 documented as of this encounter
--- OUTSIDE RECORDS SUMMARY | 2024-07-21 11:27 | XMS_ITS | Encounter Summary ---
[place] [address] Care Team Providers Care Fire Engine Operator Name Role Phone Amira Hooks Primary Care Provider Reason for Referral * Diagnostic Test (Routine) - Closed Specialty Diagnoses / Procedures Referred By Zeyad mishra Referred To Contact Gastroenterology Diagnoses Dyspepsia Abdominal bloating HBT - laculose - bloating Procedures Breath Hydrogen Test Josh Castro MD [facility] [place] [address] [place] [address] Referral ID Status Reason Start Date Expiration Date V isits Requested Visits Authorized [id number] Closed Consult, Test & Treat 11/26/2023 11/25/2024 1 1 Reason for Visit * Consultation (Routine) - Closed Specialty Diagnoses / Procedures Referred By Zeyad mishra Referred To Contact Gastroenterology Diagnoses Constipation, unspecified constipation type Gastroesophageal reflux disease, unspecified whether esophagitis present motility- constipation (former breonna pt ) Amira Hooks PA [address] [place] [address] [facility] [place] [address] Referral ID Status Reason Start Date Expiration Date V isits Requested Visits Authorized [id number] Closed Consult, Test & Treat PCP Updated and/or Approved 04/20/2023 04/19/2024 6 6 Encounter Details Date Type Department Care Team (Late st Contact Info) Description 11/26/2023 4:00 PM EST Office Visit [place] [address] Josh Castro MD [facility] [place] [address] Dyspepsia; Screening for colon cancer; Abdominal bloating; [...] Castro MD - 11/26/2023 4:00 PM EST [facility] Section of Gastroenterology and Hepatology New Patient Visit PCP: SONNY Gambino Referring provider: SONNY Gambino [address] [place] [address] HPI: This is a 52 y.o. male with hx of Afib s/p ablation on Eliquis, STEMI, s/p CCY, bipolar d/o, PTSD (medical trauma) who is kindly referred by SONNY Gambino [address] [place] [address] for evaluation of abd pain and constipation. Previously seen by Breonna Ambrocio, see her notes. 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 - [place] Former smoker Mom with [...] 11.47) performed by Colt Hewitt MD [facility] MAIN OR PRO UNLISTED LAPAROSCOPIC PX LVR N/A 07/21/2018 LAPAROSCOPIC LIVER BIOPSY (WRVU 16.52) performed by Colt Hewitt MD at [facility] MAIN OR PRO UPPER GI ENDOSCOPY, BIOPSY N/A 12/29/2017 UPPER GASTROINTESTINAL ENDOSCOPY,WITH BIOPSY SINGLE OR MULTIPLE (WRVU 2.49) performed by Yusuf Tucker MD at [facility] ENDOSCOPY PRO UPPER GI ENDOSCOPY, DIAGNOSTIC N/A 12/29/2017 EGD, UPPER GI ENDOSCOPY performed by Yusuf Tucker MD at [facility] ENDOSCOPY TONSILLECTOMY Social History Socioeconomic History [...] Castro MD Section of Gastroenterology and Hepatology [facility] [address] * Josh Castro MD - 11/26/2023 4:00 [...] Breath Testing in Gastrointestinal Disorders: The [place] Consensus (Am J Gastroenterol 2017; 112(5):775-84. Apositive breath test is defined as a rise in hydrogen production >20 ppm compared to baseline within 90 minutes. Methane-positive is defined by at least 10 ppm production of methane. Signed, Davon Lay APRN [place]enter[place] [address] P: [phone] F: [phone] Copy: SONNY Espinoza documented in this encounter Miscellaneous Notes * Addendum Note - Josh Castro MD - 11/26/2023 4:00 PM ESTAddended by: JOSH CASTRO on: 03/26/2024 06:48 AM Modules accepted: Orders documented in this encounter Plan of Treatment Upcoming Encounters Date Type Department Care Team (Late st Contact Info) Description 09/21/2024 10:[address] [place] [address] Rachel Carrasco MD [facility] [place] [address] 09/21/2024 11:00 AM EST Office [place] [address] Rachel Carrasco MD [facility] [place] [address] Scheduled Orders Name Type Priority Associated Diagnoses [...] (SIBO) documented in this encounter Care Teams Fire Engine Operator Relationship Specialty Start Date End Date Amira Hooks PA [address] [place] [address] PCP - General Family Medicine 07/25/22 documented as of this encounter
--- OUTSIDE RECORDS SUMMARY | 2024-07-21 11:27 | XMS_ITS | Encounter Summary ---
Author Organization [facility] [place] [address] Care Team Providers Care Plain Goods Hemmer Name Role Phone Amira Hooks Primary Care Provider [phone] Encounter Details Date Type Department Care Team [...] 10:[address] Scan at [facility] [place] [address] Rachel Carrasco MD [facility] [place] [address] 09/21/2024 11:00 AM EST [place] [address] Rachel Carrasco MD [facility] [place] [address] documented as of this encounter Visit Diagnoses Not on filedocumented in this encounter Care Teams Plain Goods Hemmer Relationship Specialty Start Date End Date Amira Hooks PA [address] [place] [address] PCP - General Family Medicine 07/25/22 documented as of this encounter
--- OUTSIDE RECORDS SUMMARY | 2024-07-21 11:27 | XMS_ITS | Encounter Summary ---
Author Organization [facility] [place] [address] Care Team Providers Care Heliarc Welder Name Role Phone Amira Hooks Primary Care [...] 10:[address] [place] [address] Rachel Carrasco MD [facility] [place] [place] [address] 09/21/2024 11:00 AM EST Office [place] [address] Rachel Carrasco MD [facility] [place] [address] documented as of this encounter Visit Diagnoses Not on filedocumented in this encounter Care Teams Heliarc Welder Relationship Specialty Start Date End Date Amira Hooks PA [address] [address] PCP - General Family Medicine 07/25/22 documented as of this encounter
--- OUTSIDE RECORDS SUMMARY | 2024-07-21 11:27 | XMS_ITS | Encounter Summary ---
Author Organization [facility] [place] [address] Care Team Providers Care Coach Cleaner Name Role Phone Amira Hooks Primary [...] 10:[address] [place] [address] Rachel Carrasco MD [facility] [place] [address] 09/21/2024 11:00 AM EST Office [place] [phone] Rachel Carrasco MD [facility] [place] [address] documented as of this encounter Visit Diagnoses Not on filedocumented in this encounter Care Teams Coach Cleaner Relationship Specialty Start Date End Date Amira Hooks PA [address] [address] PCP - General Family Medicine 07/25/22 documented as of this encounter
--- OUTSIDE RECORDS SUMMARY | 2024-07-21 11:27 | XMS_ITS | Encounter Summary ---
[place] [address] Care Team Providers Care Economic Development Specialist Name Role Phone Amira Hooks Primary Care Provider [phone] Encounter Details Date Type Department Care Team (Late st Contact Info) Description 12/24/2022 Telephone Psychiatry [place] [address] Twyla Mayfield Social History Tobacco Use Types [...] 10:[address] [place] [address] Rachel Carrasco MD [facility] [place] [address] 09/21/2024 11:00 AM EST [place] [address] Rachel Carrasco MD [facility] [place] [address] documented as of this encounter Visit Diagnoses Not on filedocumented in this encounter Care Teams Economic Development Specialist Relationship Specialty Start Date End Date Amira Hooks PA [address] [address] PCP - General Family Medicine 07/25/22 documented as of this encounter
--- OUTSIDE RECORDS SUMMARY | 2024-07-21 11:27 | XMS_ITS | Encounter Summary ---
Author Organization [facility] [place] [address] Care Team Providers Care Vortex Operator Name Role Phone Amira Hooks Primary Care Provider [phone] Reason for Visit * Reason Comments Atrial Fibrillation Encounter Details Date Type Department Care Team (Late st Contact Info) Description 04/06/2023 10:19 PM EDT - 04/07/2023 12:25 AM EDT [place] [address] Darnell Ferguson MD [facility] [place] [address] Racing heart beat Discharge Disposition: Home Social [...] PM EDT You were seen in the [facility] emergency department. Your work-up here was [...] half since his ablation. He called his Vessel Captain, and it was recommended he take an [...] as per HPI Vitals: ED Triage Vitals [04/06/232211] BP: 134/85 Heart Rate: (!) 109 Resp: [...] of 04/07/23 0353 Sun April 06, 2023 1437 Patient decline IV fluids and Mg repletion [...] follow- up plan. Faina Shipley MD Resident 04/07/230 Associated attestation - Darnell Ferguson MD - [...] the resident note unless noted otherwise. * aMhogany Butterfield RN - 04/06/2023 11:43 PM EDT [...] 10:[address] [place] [address] Rachel Carrasco MD [facility] [place] [address] 09/21/2024 11:00 AM EST Office [place] [address] Rachel Carrasco MD [facility] [place] [address] documented as of this encounter Procedures Procedure [...] PM EDT) Blue Hold Sample in lab. [facility] Blood Venous Draw / Unknown 04/06/2023 10:30 PM EDT 04/06/2023 10:47 PM EDT Faina Grijalva MD [place] [address] * (ABNORMAL) Differential, Automated (04/06/2023 10:30 PM EDT) Neutrophil % 71.5 % [facility] Neutrophil Absolute 6.97(H) 1.70 - 6.10 x10(3)/mc L [facility] Lymph % 19.3 % [facility] Lymphocytes Abs 1.9 0.9 - 3.2 x10(3)/mc L [facility] Monocyte % 7.4 % [facility] Monocyte Abs 0.7 0.3 - 0.9 x10(3)/mc L [facility] Eos % 0.9 % [facility] Eosinophils Abs 0.1 0.0 - 0.4 x10(3)/mc L [facility] Basophil % 0.5 % [facility] Baso Absolute 0.0 0.0 - 0.1 x10(3)/mc L [facility] Immature Gran % 0.40 % [facility] Comment: Immature granulocytes(IG's)percentage and absolute count will include metamyelocytes, myelocytes, and promyelocytes. Blood smears from CBCs yielding IG's will be scanned manually for concordance. If this scan disagrees with the automated IG or if promyelocytes are noted, a manual differential will be performed. Immature Gran Absolute 0.04 0.00 - 0.04 x10(3)/mc L [facility] Blood 04/06/2023 10:3 0 PM EDT 04/06/2023 10:46 PM EDT Narrative Resulting Agency Comment Spec In Lab Faina Grijalva MD HEMATOLOGY ORDERAB LES Performing Organization Address City/[facility]/ZIP Co de Phone Number [facility] [place] [address] * (ABNORMAL) Hemogram (04/06/2023 10:30 PM EDT) White Blood Cell 9.8(H) 4.0 - 9.5 x10(3)/mc L [facility] Red Blood Cell 5.07 4.58 - 5.54 x10(6)/mc L [facility] Hemoglobin 14.3 13.7 - 16.5 g/dL [facility] Hematocrit 43.4 40.5 - 48.5 % [facility] Mean Cell Volume 85.6 82.9 - 93.1 fL [facility] Mean Cell Hemoglobin 28.2 27.5 - 32.1 pg [facility] Mean Cell Hemoglobin Concentration 32.9 32.0 - 35.7 g/dL [facility] Platelet 241 145 - 357 x10(3)/mc L [facility] RDW Standard Deviation 45.2(H) 36.0 - 45.0 fL [facility] RDW coefficient of variation 14.6(H) 11.4 - 13.8 % [facility] Mean Platelet Volume 9.9 7.6 - 12.9 fL [facility] NRBC% auto 0.0 % [facility] NRBC Absolute 0.000 0.000 - 0.000 x10(3)/ L [facility] Blood 04/06/2023 10:3 0 PM EDT 04/06/2023 10:46 PM EDT Narrative Resulting Agency Comment Spec In Lab Faina Grijalva MD HEMATOLOGY ORDERAB LES Performing Organization Address City/State/[facility] Co de Phone Number [facility] [place] [address] * TSH Lares (04/06/2023 10:30 PM EDT) Thyroid Stimulating Hormone 2.28 0.27 - 4.20 mcIU/mL [facility] Comment: Reference Interval (mcIU/mL): Females: ??First Trimester: 0.23-3.88 ??Second Trimester: 0.22-3.90 ??Third Trimester: 0.44-4.66 Blood 04/06/2023 10:3 0 PM EDT 04/06/2023 10:46 PM EDT Narrative Resulting Agency Comment Spec In Lab Darnell Ferguson MD CHEMISTRY ORDERABLES Performing Organization Address [facility] Co de Phone Number [facility] [place] [address] * Magnesium (04/06/2023 10:30 PM EDT) Magnesium 0.82 0.69 - 1.07 mmol/L [facility] Blood 04/06/2023 10:3 0 PM EDT 04/06/2023 10:46 PM EDT Narrative Resulting Agency Comment Spec In Lab Darnell Ferguson MD CHEMISTRY ORDERABLES Performing Organization Address [facility] de Phone Number [facility] [place] [address] * (ABNORMAL) Basic Metabolic Panel (non-fasting) (04/06/2023 10:30 PM EDT) Glucose 104 65 - 199 mg/dL [facility] Comment:Diabetes: >=200 mg/d L plus symptoms Blood Urea Nitrogen 7(L) 10 - 20 mg/dL [facility] Creatinine 0.92 0.80 - 1.50 mg/dL [facility] Sodium 143 135 - 145 mmol/L [facility] Potassium 3.6 3.5 - 5.0 mmol/L [facility] Comment: Please note: ??Patients with WBC >100,000 may have falsely elevated Potassium levels. ??For accurate Potassium quantification in these patients send serum separator tube (gold top) for subsequent determinations. ??Contact the Clinical Chemistry Laboratory if there are any questions. Chloride 106 98 - 107 mmol/L [facility] Carbon Dioxide 26 22 - 31 mmol/L [facility] Anion Gap 11 5 - 15 mmol/L [facility] Calcium 9.6 8.5 - 10.5 mg/dL [facility] Est Glomerular Filtration Rate 99 >=60 mL/min/1. 73 m?? [facility] Comment: This patient's estimated GFR [...] In Lab Darnell Ferguson MD CHEMISTRY ORDERABLES [facility] [place] [address] * EKG 12 Lead (04/06/2023 10:24 PM EDT) Ventricular rate 107 BPM MUSE SYSTEM Atrial Rate 107 BPM MUSE SYSTEM P-R Interval 160 ms MUSE SYSTEM QRS Duration 94 ms MUSE SYSTEM Q-T Interval 360 ms MUSE SYSTEM QTC Calculated (Bezet) 480 ms MUSE SYSTEM Calculated P [place] 26 degrees MUSE SYSTEM Calculated R [place] 55 degrees MUSE SYSTEM Calculated T [place] 41 degrees MUSE SYSTEM INTERPRETATION Sinus tachycardia Nonspecific ST abnormality Abnormal ECG When compared with ECG of 18-SEP-2022 09:30, Vent. rate has increased BY ??[address] now depressed in Anterior leads QT has lengthened Confirmed by MD Alecia, Ruperto Moya ([id number]) on 04/09/2023 4:15:28 PM MUSE SYSTEM 04/06/2023 10:2 4 PM EDT 04/09/2023 4:15 PM EDT Darnell Ferguson MD ECG ORDERABLES MUSE SYSTEM documented in this encounter Visit Diagnoses Diagnosis Racing heart beat Tachycardia, unspecified documented in this encounter Care Teams Vortex Operator Relationship Specialty Start Date End Date Amira Hooks PA [address] [place] [id number] PCP - General Family Medicine 07/25/22 documented as of this encounter
--- OUTSIDE RECORDS SUMMARY | 2024-07-21 11:27 | XMS_ITS | Encounter Summary ---
Author Organization [facility] [place] [address] Care Team Providers Care Grassland Conservationist Name Role Phone Amira Hooks Primary Care Provider Reason for Visit * Reason Comments Atrial Fibrillation Encounter Details Date Type Department Care Team (Late st Contact Info) Description 12/18/2022 3:00 PM EST Office Visit Cardiology at [address] [address] Mo Horne MD [facility] [place] [address] Paroxysmal atrial fibrillation Social History Tobacco Use [...] Follow Up Patient ID Rolo Aguilar 1970 [id number] Rolo Aguilar is following up in EP [...] tachycardia) Added automatically from request for surgery [id number] ??? PAF (paroxysmal atrial fibrillation) Added automatically from request for surgery [id number] ??? Flutter-fibrillation ??? H/O cardiac radiofrequency ablation ??? Coronary disease ?? 2017: STEMI. PCI of OM1. EF 60%. Many ER visits to [facility] after this. ??? Heart palpitations ??? [...] deficit present. Mental Status: He is alert. Praful Rolo Aguilar is seen in the EP [...] 6 months MO HORNE MD Cardiac Electrophysiology [facility] [place] 35 minutes of this 45 minute encounter [...] 10:[address] [place] [place] [address] Rachel Carrasco MD [facility] [place] [address] 09/21/2024 11:00 AM EST [place] [address] Rachel Carrasco MD [facility] [place] [address] documented as of this encounter Visit Diagnoses Diagnosis Paroxysmal atrial fibrillation Atrial fibrillation documented in this encounter Care Teams Grassland Conservationist Relationship Specialty Start Date End Date Amira Hooks PA [address] [place] [address] PCP - General Family Medicine 07/25/22 documented as of this encounter
--- OUTSIDE RECORDS SUMMARY | 2024-07-21 11:27 | XMS_ITS | Encounter Summary ---
Author Organization [facility] Address [facility] [place] [address] Care Team Providers Care Insulation Machine Operator Name Role Phone Amira Hooks Primary Care Provider [phone] Encounter Details Date Type Department Care Team (Late st Contact Info) Description 04/18/2023 Telephone Psychiatry and [place] [address] Joana Mabry, PhD [facility] [place] [address] Social History Tobacco Use Types Packs/Day Years Used Date Smoking Tobacco: Former Cigarettes 1.5 15 1 5 - 2009 Smokeless Tobacco: Former Chew Quit: 2013 Alcohol Use Standard Drinks/Week Comments No 0 (1 standard drink = 0.6 oz pur e alcohol) [facility] Inpatient Questions Answer Date Recorded Does Anyone [...] 10:[address] [place] [address] Rachel Carrasco MD [facility] [place] [address] 09/21/2024 11:00 AM EST Office [place] [address] Rachel Carrasco MD [facility] [place] [address] documented as of this encounter Visit Diagnoses Not on filedocumented in this encounter Care Teams Insulation Machine Operator Relationship Specialty Start Date End Date Amira Hooks PA [address] [place] [address] PCP - General Family Medicine 07/25/22 documented as of this encounter
--- OUTSIDE RECORDS SUMMARY | 2024-07-21 11:27 | XMS_ITS | Encounter Summary ---
Author Organization [facility] [place] [address] Care Team Providers Care Sales And Marketing Specialist Name Role Phone Bin Bowman MD Primary Care Provider [phone] Encounter Details Date Type Department Care Team (Late st Contact Info) Description 03/22/2022 [place] [phone] Joss Painter MD [facility] [place] [address] Social History Tobacco Use Types Packs/Day Years [...] [place] [phone] Rachel Carrasco MD [facility] [place] [address] 09/21/2024 11:00 AM EST Office [place] [address] Rachel Carrasco MD [facility] [place] [address] documented as of this encounter Visit Diagnoses Not on filedocumented in this encounter Care Teams Sales And Marketing Specialist Relationship Specialty Start Date End Date Bin Bowman MD [address] [place] [address] PCP - General General Internal Medicine 04/21/1707/11 documented as of this encounter
--- OUTSIDE RECORDS SUMMARY | 2024-07-21 11:27 | XMS_ITS | Encounter Summary ---
Author Organization [facility] [place] [address] Care Team Providers Care Drapery Counselor Name Role Phone Amira Hooks Primary Care [...] 10:[address] Scan at [facility] [place] [address] Rachel Carrasco MD [facility] [place] [address] 09/21/2024 11:00 AM EST Office [place] [address] Rachel Carrasco MD [facility] [place] [address] documented as of this encounter Visit Diagnoses Not on filedocumented in this encounter Care Teams Drapery Counselor Relationship Specialty Start Date End Date Amira Hooks PA [address] [place] [address] PCP - General Family Medicine 07/25/22 documented as of this encounter
--- OUTSIDE RECORDS SUMMARY | 2024-07-21 11:27 | XMS_ITS | Encounter Summary ---
Author Organization [facility] Address [facility] [place] [address] Care Team Providers Care Dinkey Locomotive Operator Name Role Phone Bin Bowman MD Primary Care Provider Reason for Visit * Reason Onset Date Comments Medication Refill 04/24/2022 Encounter Details Date Type Department Care Team (Late st Contact Info) Description 04/24/2022 Refill Cardiology at [address] [address] Jag Lopez PA [facility] [place] [address] Medication Refill Social History Tobacco Use Types [...] 10:[address] [place] [address] Rachel Carrasco MD [facility] [place] [address] 09/21/2024 11:00 AM EST Office [place] [address] Rachel Carrasco MD [facility] [place] [address] documented as of this encounter Visit Diagnoses Diagnosis Atrial flutter, unspecified type- Primary documented in this encounter Care Teams Dinkey Locomotive Operator Relationship Specialty Start Date End Date Bin Bowman MD [address] [place] [address] PCP - General General Internal Medicine 04/21/1707/11 documented as of this encounter
--- OUTSIDE RECORDS SUMMARY | 2024-07-21 11:27 | XMS_ITS | Encounter Summary ---
Author Organization [facility] [place] [address] Care Team Providers Care Seam Press Operator Name Role Phone Bin Bowman MD Primary Care Provider Reason for Visit * Reason Onset Date Comments Medication Change/management 04/24/2022 Danielle liset Encounter Details Date Type Department Care Team (Late st Contact Info) Description 04/24/2022 Telephone Cardiology at [address] [phone] Fadi Escobar MD [facility] [place] [address] Medication Change/management (Eliquis) Social History Tobacco Use [...] 10:[address] [place] [place] [address] Rachel Carrasco MD [facility] [place] [address] 09/21/2024 11:00 AM EST [place] [address] Rachel Carrasco MD [facility] [address] documented as of this encounter Visit Diagnoses Not on filedocumented in this encounter Care Teams Seam Press Operator Relationship Specialty Start Date End Date Bin Bowman MD [address] [place] [address] PCP - General General Internal Medicine 04/21/1707/11 documented as of this encounter
--- OUTSIDE RECORDS SUMMARY | 2024-07-21 11:27 | XMS_ITS | Encounter Summary ---
Author Organization [facility] [place] [address] Care Team Providers Care Chief Minister Name Role Phone Bin Bowman MD Primary Care Provider [phone] Reason for Referral * Consultation (Routine) - Closed Specialty Diagnoses / Procedures Referred By Zeyad mishra Referred To Contact Weight and Wellness Diagnoses Class 3 severe obesity with body mass index (BMI) greater than or equal to 70 in adult, unspecified obesity type, unspecified whether serious comorbidity present Fadi Escobar MD [facility] [place] [place] [address] [facility] [address] [place] [address] Referral ID Status Reason Start Date Expiration Date V isits Requested Visits Authorized [id number] Closed Consult, Test & Treat 12/27/2021 12/27/2022 1 1 Encounter Details Date Type Department Care Team (Late st Contact Info) Description 12/10/2021 Orders Only Cardiology at [address] [address] Fadi Escobar MD [facility] [place] [address] Class 3 severe obesity with body mass [...] EST [place] [address] Rachel Carrasco MD [facility] [place] [address] 09/21/2024 11:00 AM EST [place] [address] Racehl Carrasco MD [facility] [place] [address] Scheduled Referrals Name Type Priority Associated Diagnoses [...] present documented in this encounter Care Teams Chief Minister Relationship Specialty Start Date End Date Bin Bowman MD [address] [place] [address] PCP - General General Internal Medicine 04/21/1707/11 documented as of this encounter
--- OUTSIDE RECORDS SUMMARY | 2024-07-21 11:27 | XMS_ITS | Encounter Summary ---
Author Organization [facility] [place] [address] Care Team Providers Care Chemist Food Name Role Phone Amira Hooks Primary Care Provider Reason for Visit * Reason Comments Atrial Fibrillation S/P Ablation Encounter Details Date Type Department Care Team (Late st Contact Info) Description 06/18/2023 1:40 PM EDT Office Visit Cardiology at [address] [address] Mo Horne MD [facility] [place] [address] S/P ablation of atrial fibrillation Social History [...] Follow Up Patient ID Rolo Aguilar 1970 [id number] Rolo Aguilar is following up in EP [...] tachycardia) Added automatically from request for surgery [id number] PAF (paroxysmal atrial fibrillation) Added automatically from request for surgery [id number] Flutter-fibrillation H/O cardiac radiofrequency ablation Coronary disease 2017: STEMI. PCI of OM1. EF 60%. [facility] ER visits to [facility] after this. Heart palpitations Obesity Essential [...] is alert. ECG: sinus rhythm 68 bpm, IL 180ms, QRS 100ms, QT 400ms Praful Aguilar [...] 12 months MO HORNE MD Cardiac Electrophysiology [facility] [place] 20 minutes of this minute encounter were [...] 10:[address] [place] [address] Rachel Carrasco MD [facility] [place] [address] 09/21/2024 11:00 AM EST Office [place] [address] Rachel Carrasco MD [facility] [place] [address] documented as of this encounter Visit Diagnoses Diagnosis S/P ablation of atrial fibrillation Other postprocedural status documented in this encounter Care Teams Chemist Food Relationship Specialty Start Date End Date Amira Hooks PA [address] [place] [address] PCP - General Family Medicine 07/25/22 documented as of this encounter
--- OUTSIDE RECORDS SUMMARY | 2024-07-21 11:27 | XMS_ITS | Encounter Summary ---
Author [place] [address] Care Team Providers Care Gore Maker Name Role Phone Bin Bowman MD Primary Care Provider Reason for Referral * Diagnostic Test (Routine) - Closed Specialty Diagnoses / Procedures Referred By Contac t Referred To Contact Cardiology Diagnoses PAF (paroxysmal atrial fibrillation) Procedures Ziopatch 48 Hrs-15 Days Fadi Escobar MD [facility] [place] [address] [facility] [place] [address] Referral ID Status Reason Start Date Expiration Date V isits Requested Visits Authorized [id number] Closed Specialty Service Requested 12/27/2021 12/27/2022 1 1 Reason for Visit * Diagnostic Test (Routine) - Closed Specialty Diagnoses / Procedures Referred By Contac t Referred To Contact Cardiology Diagnoses PAF (paroxysmal atrial fibrillation) Procedures Ziopatch 48 Hrs-15 Days Fadi Escobar MD [facility] [place] [address] [facility] [place] [address] Referral ID Status Reason Start Date Expiration Date V isits Requested Visits Authorized [id number] Closed Specialty Service Requested 12/27/2021 12/27/2022 1 1 Encounter Details Date Type Department Care Team (Latest Contact Info) Description 07/02/2022 8:14 AM EDT - 07/02/2022 11:59 PM EDT Hospital Encounter Non-Invasive [place] [address] Fadi Escobar MD [facility] [place] [address] PAF (paroxysmal atrial fibrillation) Discharge Disposition: Home [...] 10:[address] [place] [place] [address] Rachel Carrasco MD [facility] [place] [address] 09/21/2024 11:00 AM EST [place] [address] Rachel Carrasco MD [facility] [place] [address] documented as of this encounter Procedures Procedure Name Priority Date/Time Associated Diagnosis Comments ZIOPATCH 48 HRS-15 DAYS Routine 07/02/2022 8:16 AM EDT PAF (paroxysmal atrial fibrillation) documented in this encounter Results * Ziopatch 48 Hrs-15 Days (07/02/2022 8:16 AM EDT) Anatomical Region Laterality Modality Other Narrative 07/26/2022 5:16 PM EDT [facility] ? Zio Patch? Ambulatory Cardiac Event Monitor [...] block. Fadi Escobar MD [facility] documented in this encounter Visit Diagnoses Diagnosis PAF (paroxysmal atrial fibrillation) Atrial fibrillation documented in this encounter Care Teams Gore Maker Relationship Specialty Start Date End Date Bin Bowman MD [address] [place] [address] PCP - General General Internal Medicine 04/21/1707/11 documented as of this encounter
--- OUTSIDE RECORDS SUMMARY | 2024-07-21 11:27 | XMS_ITS | Encounter Summary ---
Author Organization [facility] [address] Care Team Providers Care Repairer Switchgear Name Role Phone Amira Hooks Primary Care [...] 10:[address] [place] [place] [address] Rachel Carrasco MD [facility] [place] [address] 09/21/2024 11:00 AM EST [place] [address] Rachel Carrasco MD [facility] [place] [address] documented as of this encounter Visit Diagnoses Not on filedocumented in this encounter Care Teams Repairer Switchgear Relationship Specialty Start Date End Date Amira Hooks PA [address] [address] PCP - General Family Medicine 07/25/22 documented as of this encounter
--- OUTSIDE RECORDS SUMMARY | 2024-07-21 11:27 | XMS_ITS | Encounter Summary ---
Author Organization [facility] [place] [address] Care Team Providers Care Adjunct Physical Education Instructor Name Role Phone Amira Hooks Primary [...] 10:[address] [place] [address] Rachel Carrasco MD [facility] [place] [address] 09/21/2024 11:00 AM EST [place] [address] Rachel Carrasco MD [facility] [place] [address] documented as of this encounter Visit Diagnoses Not on filedocumented in this encounter Care Teams Adjunct Physical Education Instructor Relationship Specialty Start Date End Date Amira Hooks PA [address] [address] PCP - General Family Medicine 07/25/22 documented as of this encounter
--- OUTSIDE RECORDS SUMMARY | 2024-07-21 11:27 | XMS_ITS | Encounter Summary ---
[place] [address] Care Team Providers Care Well Logging Captain Name Role Phone Amira Hooks Primary Care Provider Reason for Referral * Consultation (Routine) - Closed Specialty Diagnoses / Procedures Referred By Zeyad mishra Referred To Contact General Surgery Diagnoses Morbid obesity Blood glucose elevated Hypertension, unspecified type Other sleep apnea Amira Hooks PA [address] [place] [address] [facility] Gen Surgery [address] [place] [phone] Referral ID Status Reason Start Date Expiration Date V isits Requested Visits Authorized [id number] Closed Consult, Test & Treat PCP Updated and/or Approved 12/09/2022 12/09/2023 6 6 Encounter Details Date Type Department Care Team (Latest Contact Info) Description 12/09/2022 Transcribe Orders eDH Incoming Referrals [phone] Amira Hooks PA [address] [place] [address] Morbid obesity; Blood glucose elevated; Hypertension, unspecified [...] [place] [address] Rachel Carrasco MD [facility] [place] [address] 09/21/2024 11:00 AM EST [place] [address] Rachel Carrasco MD [facility] [place] [address] Scheduled Referrals Name Type Priority Associated Diagnoses Orde r Schedule Referral to Bariatric Surgery Program Outpatient Referral Routine Morbid obesity Blood glucose elevated Hypertension, unspecified type Other sleep apnea Ordered: 12/09/2022 documented as of this encounter Visit Diagnoses Diagnosis Morbid obesity Blood glucose elevated Other abnormal glucose Hypertension, unspecified type Other sleep apnea documented in this encounter Care Teams Well Logging Captain Relationship Specialty Start Date End Date Amira Hooks PA [address] [place] [address] PCP - General Family Medicine 07/25/22 documented as of this encounter
--- OUTSIDE RECORDS SUMMARY | 2024-07-21 11:27 | XMS_ITS | Encounter Summary ---
[place] [address] Care Team Providers Care Eradicator Name Role Phone Amira Hooks Primary Care Provider Encounter Details Date Type Department Care Team (Late st Contact Info) Description 08/06/2022 Telephone Weight and Wellness at [address] [phone] Daysi Greene, COMPOUNDING AND FINISHING SUPERVISOR Social History Tobacco Use Types Packs/Day Years [...] Notes * Telephone Encounter - Daysi Greene COMPOUNDING AND FINISHING SUPERVISOR - 08/06/2022 1:32 PM EDT [facility] Licensed Master Social Worker Pre-telemedicine Visit Phone Note Rolo Aguilar 1970 [] Patient was not reached Patient was reached and the following information was reviewed/obtained per protocol: [x] Confirmed patient name and date of [x] Confirmed ZOOM downloaded and functioning [] ZOOM appointment link sent if no MyDH [x] Phone number to be reached is: [phone] REVIEW: [x] Review of patient medications completed Have you started on any NEW medications? [] No [] Yes: [x] Confirmed preferred pharmacy: [facility] home delivery Reminders Your provider might ask you what you ate the day prior to the visit Please weigh yourself before the appointment Pedi: Both parent and child need to be present for the visit documented in this encounter Plan of Treatment Upcoming Encounters Date Type Department Care Team (Late st Contact Info) Description 09/21/2024 10:[address] [place] [place] [address] Rachel Carrasco MD [facility] [place] [address] 09/21/2024 11:00 AM EST [place] [address] Rachel Carrasco MD [facility] [place] [address] documented as of this encounter Visit Diagnoses Not on filedocumented in this encounter Care Teams Eradicator Relationship Specialty Start Date End Date Amira Hooks PA [address] [place] [address] PCP - General Family Medicine 07/25/22 documented as of this encounter
--- OUTSIDE RECORDS SUMMARY | 2024-07-21 11:27 | XMS_ITS | Encounter Summary ---
Author Organization [facility] [place] [address] Care Team Providers Care Rug Washer Name Role Phone Bin Bowman MD Primary Care Provider Reason for Visit * Reason Onset Date Comments Medication Refill 04/06/2022 Encounter Details Date Type Department Care Team (Late st Contact Info) Description 04/06/2022 Refill Cardiology at [address] [phone] Fadi Escobar MD [facility] [place] [address] Medication Refill Social History Tobacco Use Types [...] 10:[address] [place] [place] [address] Rachel Carrasco MD [facility] [place] [address] 09/21/2024 11:00 AM EST [place] [address] Rachel Carrasco MD [facility] [place] [address] documented as of this encounter Visit Diagnoses Not on filedocumented in this encounter Care Teams Rug Washer Relationship Specialty Start Date End Date Bin Bowman MD [address] [place] [address] PCP - General General Internal Medicine 04/21/1707/11 documented as of this encounter
--- OUTSIDE RECORDS SUMMARY | 2024-07-21 11:27 | XMS_ITS | Encounter Summary ---
Author Organization [facility] [place] [address] Care Team Providers Care Glue Mill Operator Name Role Phone Amira Hooks Primary Care Provider [phone] Encounter Details Date Type Department Care Team [...] 10:[address] [place] [address] Rachel Carrasco MD [facility] [place] [address] 09/21/2024 11:00 AM EST Office [place] [address] Rachel Carrasco MD [facility] [place] [address] documented as of this encounter Visit Diagnoses Not on filedocumented in this encounter Care Teams Glue Mill Operator Relationship Specialty Start Date End Date Amira Hooks PA [address] [address] PCP - General Family Medicine 07/25/22 documented as of this encounter
--- OUTSIDE RECORDS SUMMARY | 2024-07-21 11:27 | XMS_ITS | Encounter Summary ---
Author Organization [facility] Address [facility] [place] [address] Care Team Providers Care Manager Billing Name Role Phone Bin Bowman MD Primary Care Provider Encounter Details Date Type Department Care Team (Late st Contact Info) Description 06/24/2022 10:00 AM EDT Office Visit Cardiology at [address] [address] Fadi Escobar MD [facility] [place] [address] PAF (paroxysmal atrial fibrillation) Social History Tobacco [...] 06/24/2022 10:00 AM EDT Cardiac Electrophysiology Clinic?? [place] Office?? June 24, 2022 (last visit December 05, 2021) ? Gear Design Engineer:??Jose Culver MD (has since moved to a new practice elsewhere). Primary Care:??Bin Bowman MD ?? Reason for Visit:??Follow up ?? Backgound: ??Jeff??is a 51??year old gentleman who has had multiple??symptomatic episodes of paroxysmal atrial??tachycardia +/- ??fibrillation (AF), with numerous trips to the local emergency room in [facility] for some of those symptomatic episodes.? [...] reduced to 200 mg daily as of zpelb-cl-ftk June. He reported early on??having felt a total of??3-4 episodes of brief tachycardia,??the??longest was??of which was??<5 minutes??duration; the associated symptoms were??not severe??as they otherwise previously had been when he had episodes pre-ablation, and he has required no further trips to his local emergency department since then (about which both he and his ??remain??pleased). ?? He was able to go back to work doing [employer], and he otherwise offered no arrhythmia complaints. [...] ??2) ??Coronary artery disease >?July 2017 at [facility]: Non-STEMI (EMMY of [...] mg daily, and other noncardiac medications)? 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 Stress??[facility]??Moderate size severely intense fixed inferolateraldefect. LVEF 50%. [...] inferior infarction. Electrocardiogram??(April 27, 2020):??Sinus rhythm 82/minute, [place] 156 m, QRS duration 102 ms, QTc 416ms, old inferior infarction. Chest Radiograph??(July 18, 2021): No indication of amiodarone toxicity. Blood Tests??(July 19, 2021; [place], [place]): Heaptic enzymes normal (albumin and calcium slight low), TSH mildly elevated at 4.22 uIU/L (upper limit normal range 3.74) ?? Assessment:??Subsequent to his January 2021 mapping and ablation procedure and initial post-proceduretreatment with amiodarone, Mr. Aguilar largely had been doing well with respect to his rhythm status, even on a very low dose of amiodarone; this was discontinued in December 2021 after had his eyes examined (specialty examination in [facility], no records available at this time [...] transitioning away from clinical practice by this marily (he also recently lost Dr. Culver, who [...] [facility] (he is from [place], [place]) - possibly could he have Zio moniotr results by then to review in Cardiac Electrophysiology that day? 3) Follow up discussed (per our discussion, he knows of Dr. Horne - follow up in [place], [place], would be closer to his home. ____ documented in this encounter Plan of Treatment Upcoming Encounters Date Type Department Care Team (Late st Contact Info) Description 09/21/2024 10:[address] [place] [phone] Rachel Carrasco MD [facility] [place] [address] 09/21/2024 11:00 AM EST [place] [address] Rachel Carrasco MD [facility] [place] [address] documented as of this encounter Procedures Procedure [...] (Bezet) 412 ms MUSE SYSTEM Calculated P [place] 29 degrees MUSE SYSTEM Calculated R [place] 41 degrees MUSE SYSTEM Calculated T [place] 27 degrees MUSE SYSTEM INTERPRETATION Normal sinus rhythm Normal ECG When compared with ECG of 25-JUL-2021 08:34, Premature atrial complexes are no longer Present Confirmed by MD Cheng, Jose ([id number]) on 06/24/2022 11:29:45 AM MUSE SYSTEM 06/24/2022 9:44 AM EDT 06/24/2022 11:29 AM EDT Fadi Escobar MD ECG ORDERABLES MUSE SYSTEM documented in this encounter Visit Diagnoses Diagnosis PAF (paroxysmal atrial fibrillation) Atrial fibrillation documented in this encounter Care Teams Manager Billing Relationship Specialty Start Date End Date Bin Bowman MD [address] [place] [address] PCP - General General Internal Medicine 04/21/1707/11 documented as of this encounter
--- OUTSIDE RECORDS SUMMARY | 2024-07-21 11:27 | XMS_ITS | Encounter Summary ---
Author Organization [facility] [place] [address] Care Team Providers Care Media Sales Consultant Name Role Phone Amira Hooks Primary Care Provider [phone] Encounter Details Date Type Department Care Team (Latest Contact Info) Description 03/26/2023 10:00 AM EDT TH Visit (TeleHealth) Psychiatry [place] [address] Joana Mabry, PhD [facility] [place] [address] Post-traumatic stress disorder, unspecified Social History Tobacco [...] EDT INDIVIDUAL THERAPY PROGRESS NOTE CPT CODES 98361, 11686, 55160 LOCATION: Office SESSION DURATION: 45 minutes (50 [...] emergencies, call 988 from anywhere in the [facility]. State specific information for [place] and [place] crisis services are as follows and should be used to access local resources: [facility] Mental Health Crises Services [facility] Crisis Line text or call Visit www.RealOps for further information [place] Call your local [facility] crisis line at: [place]: Counseling Service [facility] [phone] [place]: [facility] [phone] [place]: [facility] [phone] [place]: [facility] [phone] [place]: [facility] [phone] [facility]: [facility] Counseling and Support [phone] [place]: [facility] Mental Health [phone] on weekdays 8AM-4:30PM and [phone] on nights and weekends [place]: Rashida Sparrow [facility] [place]: [facility] [phone] [place]: Formerly named [facility] Services [phone] [place]: [facility] Services, [place]: HCRS [place]: HCRS or Text [place] to [phone] For further information for [place] residents: https://mentalhealth.[place].gov/services/emergency-services/ppz-vmz-uuyq National Suicide Prevention Hotline: For patients cared for in the Department of Psychiatry, you can reach your mental health clinician at [phone]. Joana Mabry, PhD documented in this encounter Plan of Treatment Upcoming Encounters Date Type Department Care Team (Late st Contact Info) Description 09/21/2024 10:[address] [place] [address] Rachel Carrasco MD [facility] [place] [address] 09/21/2024 11:00 AM EST Office [place] [address] Rachel Carrasco MD [facility] [place] [address] documented as of this encounter Visit Diagnoses Diagnosis Post-traumatic stress disorder, unspecified documented in this encounter Care Teams Media Sales Consultant Relationship Specialty Start Date End Date Amira Hooks PA [address] [address] PCP - General Family Medicine 07/25/22 documented as of this encounter
--- OUTSIDE RECORDS SUMMARY | 2024-07-21 11:27 | XMS_ITS | Encounter Summary ---
[place] [address] Care Team Providers Care Project Engineer Name Role Phone Amira Hooks Primary Care Provider Reason for Visit * Consultation (Routine) - Closed Specialty Diagnoses / Procedures Referred By Zeyad mishra Referred To Contact General Surgery Diagnoses Morbid obesity Blood glucose elevated Hypertension, unspecified type Other sleep apnea Amira Hooks PA [address] [place] [address] [facility] [address] [place] [address] Referral ID Status Reason Start Date Expiration Date V isits Requested Visits Authorized [id number] Closed Consult, Test & Treat PCP Updated and/or Approved 12/09/2022 12/09/2023 6 6 Encounter Details Date Type Department Care Team (Late st Contact Info) Description 12/30/2022 4:00 PM EST Notes [place] [address] Social History Tobacco Use Types [...] as of this encounter Progress Notes * Peyton Wolf - 12/30/2022 4:00 PM EST PATIENT ATTENDED THE [facility] INTRO TO BARIATRIC ON 12/30/2022 FOR [facility] documented in this encounter Plan of Treatment Upcoming Encounters Date Type Department Care Team (Late st Contact Info) Description 09/21/2024 10:[address] [place] [place] [address] Rachel Carrasco MD [facility] [place] [address] 09/21/2024 11:00 AM EST [place] [address] Rachel Carrasco MD [facility] [place] [address] Scheduled Referrals Name Type Priority Associated Diagnoses Orde r Schedule Referral to Bariatric Surgery Program Outpatient Referral Routine Morbid obesity Blood glucose elevated Hypertension, unspecified type Other sleep apnea Ordered: 12/09/2022 documented as of this encounter Visit Diagnoses Not on filedocumented in this encounter Care Teams Project Engineer Relationship Specialty Start Date End Date Amira Hooks PA [address] [address] PCP - General Family Medicine 07/25/22 documented as of this encounter
--- OUTSIDE RECORDS SUMMARY | 2024-07-21 11:27 | XMS_ITS | Encounter Summary ---
Author Organization [facility] [place] [address] Care Team Providers Care Cloth Sponger Name Role Phone Amira Hooks Primary Care Provider Reason for Visit * Psychiatric (Routine) - Closed Specialty Diagnoses / Procedures Referred By Zeyad t Referred To Contact Psychiatry Diagnoses Bipolar affective disorder, remission status unspecified Panic disorder Depression with anxiety Coty Barr APRN [address] [place] [address] Bin Hughes, PhD [facility] [place] [address] Referral ID Status Reason Start Date Expiration Date V isits Requested Visits Authorized [id number] Closed Consult, Test & Treat PCP Updated and/or Approved 07/25/2022 07/25/2023 6 6 Encounter Details Date Type Department Care Team (Late st Contact Info) Description 12/16/2022 1:00 PM EST Office Visit Psychiatry [place] [address] Joana Mabry, PhD [facility] [place] [address] Post-traumatic stress disorder, unspecified Social History Tobacco [...] 1:00 PM EST DIAGNOSTIC INTERVIEW CPT Code 33414 Referral Source: Coty Barr APRN Location: Office [...] History: 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 He reported attendingschool until his senior year of high school and reports that his favorite subjects in school were generally creative/artistically focused classes. Family and Peer Relationships: Mr. Aguilar reported having a supportive spouse. Service: Denied Advent Background: Mr. Aguilar reported that he considers himself spiritual, but not yarsanism. Medical history: Past Medical History: Diagnosis Date [...] rate and normal rhythm Language: fluent in estonian Mood: euthymic Affect: mood-congruent Thought Process: linear [...] the time Pain impact Not at all [place] calm Most of the time Lot of energy Some of the time [place] downhearted Some of the time Social Impact [...] / alert Yes Numb / detached No [place] guilty or blamed yourself or others No [...] treatment in the Anxiety Disorders Service at [facility]. Does the clinician agree with the recommendation: Yes (see initial plan, above) Does the patient agree with the recommendation: Yes (see initial plan, above) Patient Instruction/Education Provided: Verbal Patient understands the plan? Yes We discussed that I am available via [employer], but that I do not check this daily, and should not be used in case of emergency. We have reviewed crisis numbers to call in case of emergency. We discussed limits to confidentiality, which include breaking confidentiality in the case of concern for imminent danger to self, someone else (including child and elder abuse) or if records are subpoenaed by a land planner. We also discussed that notes can be read by other clinicians and staff involved in the patient's care. For mental health emergencies, Call 988 from anywhere in the [facility]. State specific information for [place] and [place] crisis services are as follows and should be used to access local resources: [facility] Mental Health Crises Services [facility] Crisis Line text or call Visit www.imgix for further information [place] Call your local community crisis line at: [place]: Counseling Service [facility] [phone] [place]: [facility] [phone] [place]: [facility] [phone] [place]: [facility] [phone] [place]: [facility] [phone] [place] and [place]: [facility] Counseling and Support [phone] [place]: [facility] Health [phone] on weekdays 8AM-4:30PM and [phone] on nights and weekends [place]: [facility] [place]: [facility] [phone] [place]: [facility] Services [phone] [place]: [facility] Services, [place]: HCRS [place]: HCRS or Text [place] to [phone] For further information for [place] residents: https://mentalhealth.[place].[facility]/services/emergency-services/gvb-jnp-okyw National Suicide Prevention Hotline: For patients cared for in the Department of Psychiatry, you can reach your mental health clinician at [phone]. Joana Mabry, PhD documented in this encounter Plan of Treatment Upcoming Encounters Date Type Department Care Team (Late st Contact Info) Description 09/21/2024 10:[address] [place] [place] [phone] Rachel Carrasco MD [facility] [place] [place] [address] 09/21/2024 11:00 AM EST [place] [address] Rachel Carrasco MD [facility] [place] [address] Scheduled Referrals Name Type Priority Associated Diagnoses Order Schedule Referral to Psychiatry Outpatient Referral Routine Bipolar affective disorder, remission status unspecified Panic disorder Depression with anxiety Ordered: 07/25/2022 documented as of this encounter Visit Diagnoses Diagnosis Post-traumatic stress disorder, unspecified documented in this encounter Care Teams Cloth Sponger Relationship Specialty Start Date End Date Amira Hooks PA [address] [address] PCP - General Family Medicine 07/25/22 documented as of this encounter
--- OUTSIDE RECORDS SUMMARY | 2024-07-21 11:27 | XMS_ITS | Encounter Summary ---
Author Organization [facility] [place] [address] Care Team Providers Care Service Writer Name Role Phone Bin Bowman MD Primary Care Provider Reason for Visit * Reason Onset Date Comments Medication Refill 04/06/2022 Encounter Details Date Type Department Care Team (Late st Contact Info) Description 04/06/2022 Refill Cardiology at [address] [phone] Stephany Cardenas MD [facility] [place] [address] Medication Refill Social History Tobacco Use Types [...] 10:[address] [place] [place] [address] Rachel Carrasco MD [facility] [place] [address] 09/21/2024 11:00 AM EST [place] [address] Rachel Carrasco MD [facility] [place] [address] documented as of this encounter Visit Diagnoses Not on filedocumented in this encounter Care Teams Service Writer Relationship Specialty Start Date End Date Bin Bowman MD [address] [place] [address] PCP - General General Internal Medicine 04/21/1707/11 documented as of this encounter
--- OUTSIDE RECORDS SUMMARY | 2024-07-21 11:27 | XMS_ITS | Encounter Summary ---
Author Organization [facility] [place] [address] Care Team Providers Care Supervisor Phosphorus Processing Name Role Phone Amira Hooks Primary [...] 10:[address] Scan at [facility] [place] [address] Rachel Carrasco MD [facility] [place] [address] 09/21/2024 11:00 AM EST [place] [address] Rachel Carrasco MD [facility] [place] [address] documented as of this encounter Visit Diagnoses Not on filedocumented in this encounter Care Teams Supervisor Phosphorus Processing Relationship Specialty Start Date End Date Amira Hooks PA [address] [place] [address] PCP - General Family Medicine 07/25/22 documented as of this encounter
--- OUTSIDE RECORDS SUMMARY | 2024-07-21 11:27 | XMS_ITS | Encounter Summary ---
[place] [address] Care Team Providers Care Tobacco Stripping Machine Operator Name Role Phone Amira Hooks Primary Care Provider Encounter Details Date Type Department Care Team (Late st Contact Info) Description 01/16/2023 Telephone Psychiatry [place] [address] Lori Dean Social History Tobacco Use Types [...] 10:[address] [place] [place] [address] Rachel Carrasco MD [facility] [place] [address] 09/21/2024 11:00 AM EST Office Visit Urology at [facility] [place] [address] Rachel Carrasco MD [facility] [place] [address] documented as of this encounter Visit Diagnoses Not on filedocumented in this encounter Care Teams Tobacco Stripping Machine Operator Relationship Specialty Start Date End Date Amira Hooks PA [address] [place] [address] PCP - General Family Medicine 07/25/22 documented as of this encounter
--- OUTSIDE RECORDS SUMMARY | 2024-07-21 11:27 | XMS_ITS | Encounter Summary ---
Author Organization [facility] [place] [address] Care Team Providers Care Ball Maker Name Role Phone Amira Hooks Primary [...] Scan at [facility] [place] [address] Rachel Carrasco MD [facility] [place] [address] 09/21/2024 11:00 AM EST Office [place] [address] Rachel Carrasco MD [facility] [place] [address] documented as of this encounter Visit Diagnoses Not on filedocumented in this encounter Care Teams Ball Maker Relationship Specialty Start Date End Date Amira Hooks PA [address] [place] [address] PCP - General Family Medicine 07/25/22 documented as of this encounter
--- OUTSIDE RECORDS SUMMARY | 2024-07-21 11:27 | XMS_ITS | Encounter Summary ---
Author Organization [facility] [place] [address] Care Team Providers Care Chemical Technician Name Role Phone Amira Hooks Primary Care Provider [phone] Encounter Details Date Type Department Care Team (Late st Contact Info) Description 08/07/2022 External Results Weight and Wellness at [address] [phone] Ariella Hansen, RN Social History Tobacco Use [...] 10:[address] [place] [address] Rachel Carrasco MD [facility] [place] [address] 09/21/2024 11:00 AM EST [place] [address] Rachel Carrasco MD [facility] [place] [address] documented as of this encounter Procedures Procedure Name Priority Date/Time Associated Diagnosis Comments [facility] EXTERNAL LABS 2 Routine 12/26/2021 documented in this encounter Results * [facility] Labs 2 - External (12/26/2021) Hemoglobin A1c 5.3 Blood Urea Nitrogen 14 Creatinine 1.2 Aspartate Aminotransferase 25 Alanine Aminotransferase 44 Thyroid Stimulating Hormone 2.74 12/26/2021 Historical Provider EXTERNAL LAB [facility] documented in this encounter Visit Diagnoses Not on filedocumented in this encounter Care Teams Chemical Technician Relationship Specialty Start Date End Date Amira Hooks PA [address] [place] [address] PCP - General Family Medicine 07/25/22 documented as of this encounter
--- OUTSIDE RECORDS SUMMARY | 2024-07-21 11:27 | XMS_ITS | Encounter Summary ---
Author Organization [facility] [place] [address] Care Team Providers Care Cloud Engagement Partner Name Role Phone Bin Bowman MD Primary Care Provider Reason for Visit * Reason Comments Medication Refill Encounter Details Date Type Department Care Team (Late st Contact Info) Description 03/20/2022 Refill Cardiology at [address] [phone] Jag Lopez PA [facility] [place] [address] Medication Refill Social History Tobacco Use Types [...] 10:[address] [place] [address] Rachel Carrasco MD [facility] [place] [address] 09/21/2024 11:00 AM EST [place] [address] Rachel Carrasco MD [facility] [place] [address] documented as of this encounter Visit Diagnoses Diagnosis Atrial arrhythmia Cardiac dysrhythmia, unspecified documented in this encounter Care Teams Cloud Engagement Partner Relationship Specialty Start Date End Date Bin Bowman MD [address] [place] [address] PCP - General General Internal Medicine 04/21/1707/11 documented as of this encounter
--- OUTSIDE RECORDS SUMMARY | 2024-07-21 11:27 | XMS_ITS | Encounter Summary ---
[place] [address] Care Team Providers Care Complaint Evaluation Officer Name Role Phone Amira Hooks Primary Care Provider Encounter Details Date Type Department Care Team (Late st Contact Info) Description 01/07/2023 Telephone Psychiatry [place] [address] Lori Dean Social History Tobacco Use Types [...] 10:[address] [place] [address] Rachel Carrasco MD [facility] [place] [address] 09/21/2024 11:00 AM EST Office Visit Urology at [facility] [place] [address] Rachel Carrasco MD [facility] [place] [address] documented as of this encounter Visit Diagnoses Not on filedocumented in this encounter Care Teams Complaint Evaluation Officer Relationship Specialty Start Date End Date Amira Hooks PA [address] [place] [address] PCP - General Family Medicine 07/25/22 documented as of this encounter
--- OUTSIDE RECORDS SUMMARY | 2024-07-21 11:27 | XMS_ITS | Encounter Summary ---
Author Organization [facility] [place] [address] Care Team Providers Care Dehydrator Name Role Phone Amira Hooks Primary Care Provider [phone] Reason for Visit * Reason Comments Tachycardia SVT Encounter Details Date Type Department Care Team (Late st Contact Info) Description 09/18/2022 9:00 AM EST Office Visit Cardiology at [address] [address] Mo Horne MD [facility] [place] [address] S/P ablation of atrial fibrillation Social History [...] time For any questions, call my office: [phone] To access your health care information, go to the web at: [email or web address] (you will need to register) For educational materials: [email or web address] Mo BARTON.[facility], Clinical Cardiac Electrophysiology, [facility], For more information about heart rhythm issues, go to [email or web address] - the Heart Rhythm Society's patient resource center [facility] To access your health care information, go to the web at: [email or web address] [email or web address] (you will need to register) Heart-Healthy Lifestyle [...] more? Visit our health information library at [email or web address] You can also view health information on CompassMed, your personal patient account. Log in or sign uptoday. * Attachments The following attachments cannot be sent through Care Everywhere. * Rhythm-Control Medicines: General Info (Eritrean) documented in this encounter Progress Notes * Mo Horne MD - 09/18/2022 9:00 AM EST Images from the original note were not included. Clinical Cardiac Electrophysiology Follow Up Patient ID Rolo Aguilar [id number] Rolo Aguilar is following up in EP [...] tachycardia) Added automatically from request for surgery [id number] ??? PAF (paroxysmal atrial fibrillation) Added automatically from request for surgery [id number] ??? Flutter-fibrillation ??? H/O cardiac radiofrequency ablation ??? Coronary disease ?? 2017: STEMI. PCI of OM1. EF 60%. Many ER visits to [facility] after this. ??? Heart palpitations [...] reviewed the ECG: sinus rhythm, 61 bpm, CA 180 ms, QRS 100 ms, QT 420 [...] 6 months MO HORNE MD Cardiac Electrophysiology [facility] [place] 35 minutes of this 45 minute encounter [...] 10:[address] [place] [address] Rachel Carrasco MD [facility] [place] [address] 09/21/2024 11:00 AM EST [place] [address] Rachel Carrasco MD [facility] [place] [address] documented as of this encounter Visit Diagnoses Diagnosis S/P ablation of atrial fibrillation Other postprocedural status documented in this encounter Care Teams Dehydrator Relationship Specialty Start Date End Date Amira Hooks PA [address] [place] [address] PCP - General Family Medicine 07/25/22 documented as of this encounter
--- OUTSIDE RECORDS SUMMARY | 2024-07-21 11:27 | XMS_ITS | Encounter Summary ---
Author Organization [facility]ly [facility] Address [facility] [place] [address] Care Team Providers Care Assistant Sales Director Name Role Phone Bin Bowman MD Primary Care Provider Reason for Visit * Reason Comments Medication Refill Encounter Details Date Type Department Care Team (Late st Contact Info) Description 03/20/2022 Refill Cardiology at [address] [address] Jag Lopez PA [facility] [place] [address] Medication Refill Social History Tobacco Use Types [...] BY MOUTH TWICE A DAY Anahy Paulino collection systems consultant Clinic at [place] [address] documented in this encounter Plan of Treatment Upcoming Encounters Date Type Department Care Team (Late st Contact Info) Description 09/21/2024 10:[address] Scan at [place] [address] Rachel Carrasco MD [facility] [address] 09/21/2024 11:00 AM EST Office Visit Urology at [place] [address] Rachel Carrasco MD [facility] [place] [address] documented as of this encounter Visit Diagnoses Diagnosis Atrial arrhythmia Cardiac dysrhythmia, unspecified documented in this encounter Care Teams Assistant Sales Director Relationship Specialty Start Date End Date Bin Bowamn MD [address] [place] [address] PCP - General General Internal Medicine 04/21/1707/11 documented as of this encounter
--- OUTSIDE RECORDS SUMMARY | 2024-07-21 11:27 | XMS_ITS | Encounter Summary ---
Author Organization [facility] [place] [address] Care Team Providers Care Respiratory Care Faculty Name Role Phone Bin Bowman MD Primary Care Provider Reason for Visit * Reason Onset Date Comments Medication Refill 03/22/2022 Encounter Details Date Type Department Care Team (Late st Contact Info) Description 03/22/2022 Refill Cardiology at [address] [phone] Fadi Escobar MD [facility] [place] [address] Medication Refill Social History Tobacco Use Types [...] 10:[address] [place] [place] [address] Rachel Carrasco MD [facility] [place] [address] 09/21/2024 11:00 AM EST [place] [address] Rachel Carrasco MD [facility] [place] [address] documented as of this encounter Visit Diagnoses Diagnosis Atrial arrhythmia Cardiac dysrhythmia, unspecified documented in this encounter Care Teams Respiratory Care Faculty Relationship Specialty Start Date End Date Bin Bowman MD [address] [place] [address] PCP - General General Internal Medicine 04/21/1707/11 documented as of this encounter
--- OUTSIDE RECORDS SUMMARY | 2024-07-21 11:27 | XMS_ITS | Encounter Summary ---
Author Organization [facility] [place] [address] Care Team Providers Care Executive Kitchen Manager Name Role Phone Amira Hooks Primary Care Provider Encounter Details Date Type Department Care Team (Late st Contact Info) Description 03/14/2023 10:00 AM EDT Office Visit Psychiatry [place] [address] Joana Mabry, PhD [facility] [place] [address] Post-traumatic stress disorder, unspecified Social History Tobacco [...] EDT INDIVIDUAL THERAPY PROGRESS NOTE CPT CODES 78652, 81510, 14366 LOCATION: Office SESSION DURATION: 36 minutes ATTENDEES: [...] emergencies, call [phone] from anywhere in the [facility]. State specific information for [place] and [place] crisis services are as follows and should be used to access local resources: Former[facility] Mental Health Crises Services [facility] Crisis Line text or call Visit www.Beebrite for further information [place] Call your local community crisis line at: [place]: Counseling Service of [facility] [phone] [place]: [facility] Services [phone] [place]: [facility] [phone] [place]: [facility] [phone] [place]: [facility] [phone] [place]: [facility] Counseling and Support [phone] [place]: [facility] Mental Health [phone] on weekdays 8AM-4:30PM and [phone] on nights and weekends [place]: Rashida [facility] [place]: [facility] [phone] [place]: [facility] Services [phone] [place]: [facility] Services, [place]: HCRS [place]: HCRS or Text [place] to [phone] For further information for [place] residents: [email or web address]/services/emergency-services/ciw-mmf-aafm National Suicide Prevention Hotline: For patients cared for in the Department of Psychiatry, you can reach your mental health clinician at [phone]. Joana Mabry, PhD documented in this encounter Plan of Treatment Upcoming Encounters Date Type Department Care Team (Late st Contact Info) Description 09/21/2024 10:[address] [place] [place] [phone] Rachel Carrasco MD [facility] [place] [address] 09/21/2024 11:00 AM EST [place] [phone] Rachle Carrasco MD [facility] [place] [address] documented as of this encounter Visit Diagnoses Diagnosis Post-traumatic stress disorder, unspecified documented in this encounter Care Teams Executive Kitchen Manager Relationship Specialty Start Date End Date Amira Hooks PA [address] [place] [address] PCP - General Family Medicine 07/25/22 documented as of this encounter
--- OUTSIDE RECORDS SUMMARY | 2024-07-21 11:27 | XMS_ITS | Encounter Summary ---
Author Organization [facility] [place] [address] Care Team Providers Care Heavy Cleaner Name Role Phone Amira Hooks Primary [...] 10:[address] [place] [phone] Rachel Carrasco MD [facility] [place] [address] 09/21/2024 11:00 AM EST [place] [phone] Rachel Carrasco MD [facility] [place] [address] documented as of this encounter Visit Diagnoses Not on filedocumented in this encounter Care Teams Heavy Cleaner Relationship Specialty Start Date End Date Amira Hooks PA [address] [address] PCP - General Family Medicine 07/25/22 documented as of this encounter
--- OUTSIDE RECORDS SUMMARY | 2024-07-21 11:27 | XMS_ITS | Encounter Summary ---
[place] [address] Care Team Providers Care Neck Skewer Name Role Phone Amira Hooks Primary Care Provider Encounter Details Date Type Department Care Team (Late st Contact Info) Description 12/08/2023 Telephone [place] [address] Violet Perrin Social History Tobacco Use Types Packs/Day Years Used Date Smoking Tobacco: Former Cigarettes 1.5 15 1 - 2009 Smokeless Tobacco: Former Chew Quit: 2013 Alcohol Use Standard Drinks/Week Comments No 0 (1 standard drink = 0.6 oz pur e alcohol) [facility] Inpatient Questions Answer Date Recorded Does [...] - 12/08/2023 8:41 AM EST Rolo Aguilar [id number] Diagnosis/Indication: Endoscopy (worsening GERD and dyspepsia despite [...] your procedure. Who will likely be your sales route driver for the procedure? *Please Verify the [...] 10:[address] [place] [place] [address] Rachel Carrasco MD [facility] [address] 09/21/2024 11:00 AM EST [place] [address] Rachel Carrasco MD [facility] [place] [address] documented as of this encounter Visit Diagnoses Not on filedocumented in this encounter Care Teams Neck Skewer Relationship Specialty Start Date End Date Amira Hooks PA [address] [address] PCP - General Family Medicine 07/25/22 documented as of this encounter
--- OUTSIDE RECORDS SUMMARY | 2024-07-21 11:27 | XMS_ITS | Encounter Summary ---
Author Organization [facility] [place] [address] Care Team Providers Care Blind Slat Stapling Machine Operator Name Role Phone Amira Hooks [...] [place] [address] Rachel Carrasco MD [facility] [place] [address] 09/21/2024 11:00 AM EST [place] [phone] Rachel Carrasco MD [facility] [place] [address] documented as of this encounter Visit Diagnoses Not on filedocumented in this encounter Care Teams Blind Slat Stapling Machine Operator Relationship Specialty Start Date End Date Amira Hooks PA [address] [address] PCP - General Family Medicine 07/25/22 documented as of this encounter
--- OUTSIDE RECORDS SUMMARY | 2024-07-21 11:28 | XMS_ITS | Encounter Summary ---
[place] [address] Care Team Providers Care Inspection Manager Name Role Phone Bin Bowman MD Primary Care Provider Encounter Details Date Type Department Care Team (Late st Contact Info) Description 03/19/2021 Telephone Cardiology at [address] [phone] Jami Gurrola Social History Tobacco Use Types [...] 10:[address] [place] [address] Rachel Carrasco MD [facility] [place] [address] 09/21/2024 11:00 AM EST Office [place] [phone] Rachel Carrasco MD [facility] [place] [address] documented as of this encounter Visit Diagnoses Not on filedocumented in this encounter Care Teams Inspection Manager Relationship Specialty Start Date End Date Bin Bowman MD [address] [place] [address] PCP - General General Internal Medicine 04/21/1707/11 documented as of this encounter
--- OUTSIDE RECORDS SUMMARY | 2024-07-21 11:28 | XMS_ITS | Encounter Summary ---
[place] [address] Care Team Providers Care Leather Scrubber Name Role Phone Bin Bowman MD Primary Care Provider Reason for Visit * Reason Onset Date Comments Diarrhea 02/27/2021 Encounter Details Date Type Department Care Team (Late st Contact Info) Description 02/27/2021 Telephone Cardiology at [address] [phone] Lennie Garcia RN Diarrhea Social History Tobacco [...] 10:[address] [place] [address] Rachel Carrasco MD [facility] [place] [address] 09/21/2024 11:00 AM EST Office [place] [address] Rachel Carrasco MD [facility] [place] [address] documented as of this encounter Visit Diagnoses Not on filedocumented in this encounter Care Teams Leather Scrubber Relationship Specialty Start Date End Date Bin Bowman MD [address] [place] [address] PCP - General General Internal Medicine 04/21/1707/11 documented as of this encounter
--- OUTSIDE RECORDS SUMMARY | 2024-07-21 11:28 | XMS_ITS | Encounter Summary ---
Author Organization [facility] [place] [address] Care Team Providers Care Junior Graphic Designer Name Role Phone Bin Bowman MD Primary Care Provider [phone] Encounter Details Date Type Department Care Team (Late st Contact Info) Description 02/12/2021 [place] [phone] Donal Bennett MD [facility] [place] [address] Social History Tobacco Use Types Packs/Day Years [...] not included. Consult for AF with RVR. [facility]. Hx 50 year old male well known to the EP service history of atrial flutter s/p CTI ablation in July 2020, atrial fibrillation s/p PVI and posterior LA wall isolation on 01/10/21(c/b tamponade), anticoagulated with Eliquis, ASCVD (s/p NSTEMI, EMMY to OM1 in 07/2017), HTN, sleep apnea, RICARDO, and obesity presented to [place] with symptomatic AF with RVR. Rates initially [...] amiodarone, he will undergo DCCV in the [place] ED. Likely discharge home after without medication changes. I will inform EP team to discuss long termplan for atrial fibrillation. Donal Bennett MD Cat Tender. documented in this encounter Plan of Treatment Upcoming Encounters Date Type Department Care Team (Late st Contact Info) Description 09/21/2024 10:[address] [place] [address] Rachel Carrasco MD [facility] [place] [place] [address] 09/21/2024 11:00 AM EST Office [place] [address] Rachel Carrasco MD [facility] [place] [place] [address] documented as of this encounter Visit Diagnoses Not on filedocumented in this encounter Care Teams Junior Graphic Designer Relationship Specialty Start Date End Date Bin Bowman MD [address] [place] [address] PCP - General General Internal Medicine 04/21/1707/11 documented as of this encounter
--- OUTSIDE RECORDS SUMMARY | 2024-07-21 11:28 | XMS_ITS | Encounter Summary ---
Author Organization [facility] [place] [address] Care Team Providers Care Oral Surgery Assistant Name Role Phone Bin Bowman MD Primary Care Provider Encounter Details Date Type Department Care Team (Late st Contact Info) Description 03/14/2021 Refill Cardiology at [address] [phone] Fadi Escobar MD [facility] [place] [address] Social History Tobacco Use Types Packs/Day Years [...] 10:[address] [place] [phone] Rachel Carrasco MD [facility] [place] [address] 09/21/2024 11:00 AM EST [place] [address] Rachel Carrasco MD [facility] [place] [address] documented as of this encounter Visit Diagnoses Diagnosis Flutter-fibrillation Other premature beats documented in this encounter Care Teams Oral Surgery Assistant Relationship Specialty Start Date End Date Bin Bowman MD [address] [place] [address] PCP - General General Internal Medicine 04/21/1707/11 documented as of this encounter
--- OUTSIDE RECORDS SUMMARY | 2024-07-21 11:28 | XMS_ITS | Encounter Summary ---
[place] [address] Care Team Providers Care Laster Hand Name Role Phone Bin Bowman MD Primary Care Provider Reason for Visit * Reason Onset Date Comments Questions 05/31/2021 Encounter Details Date Type Department Care Team (Late st Contact Info) Description 05/31/2021 Telephone Cardiology at [address] [phone] Lennie Garcia, RN Questions Social History Tobacco [...] and this is not intended villa a mcfp therapeutic plan) Pt is scheduled for f/u [...] 10:[address] [place] [place] [address] Rachel Carrasco MD [facility] [place] [address] 09/21/2024 11:00 AM EST [place] [phone] Rachel Carrasco MD [facility] [place] [address] documented as of this encounter Visit Diagnoses Not on filedocumented in this encounter Care Teams Laster Hand Relationship Specialty Start Date End Date Bin Bowman MD [address] [place] [address] PCP - General General Internal Medicine 04/21/1707/11 documented as of this encounter
--- OUTSIDE RECORDS SUMMARY | 2024-07-21 11:28 | XMS_ITS | Encounter Summary ---
Author Organization [facility] [place] [address] Care Team Providers Care Director Of Research And Development Name Role Phone Bin Bowman MD Primary Care Provider Encounter Details Date Type Department Care Team (Late st Contact Info) Description 11/27/2021 Orders Only Cardiology at [address] [phone] Fadi Escobar MD [facility] [place] [address] On amiodarone therapy (Primary Dx); SVT (supraventricular [...] 10:[address] [place] [address] Rachel Carrasco MD [facility] [place] [address] 09/21/2024 11:00 AM EST Office [place] [address] Rachel Carrasco MD [facility] [place] [place] [address] documented as of this encounter Visit Diagnoses Diagnosis On amiodarone therapy- Primary SVT (supraventricular tachycardia) Other specified cardiac dysrhythmias Atrial fibrillation with rapid ventricular response Atrial fibrillation documented in this encounter Care Teams Director Of Research And Development Relationship Specialty Start Date End Date Bin Bowman MD [address] [place] [address] PCP - General General Internal Medicine 04/21/1707/11 documented as of this encounter
--- OUTSIDE RECORDS SUMMARY | 2024-07-21 11:28 | XMS_ITS | Encounter Summary ---
Author Organization [facility] [place] [address] Care Team Providers Care Bobbin Painter Name Role Phone Bin Bowman MD Primary Care Provider [phone] Reason for Visit * Reason Comments Medication Refill Eliquis Encounter Details Date Type Department Care Team (Late st Contact Info) Description 07/07/2021 Refill Cardiology at [address] [address] Juan Antonio Mathew PA [facility] [place] [address] Medication Refill (Eliquis) Social History Tobacco Use [...] 10:[address] [place] [place] [phone] Rachel Carrasco MD [facility] [place] [address] 09/21/2024 11:00 AM EST [place] [address] Rachel Carrasco MD [facility] [address] documented as of this encounter Visit Diagnoses Diagnosis Atrial arrhythmia Cardiac dysrhythmia, unspecified documented in this encounter Care Teams Bobbin Painter Relationship Specialty Start Date End Date Bin Bowman MD [address] [place] [address] PCP - General General Internal Medicine 04/21/1707/11 documented as of this encounter
--- OUTSIDE RECORDS SUMMARY | 2024-07-21 11:28 | XMS_ITS | Encounter Summary ---
[place] [address] Care Team Providers Care Master At Arms Name Role Phone Bin Bowman MD Primary Care Provider Encounter Details Date Type Department Care Team (Late st Contact Info) Description 04/23/2021 Telephone Cardiology at [address] [phone] Ivonne Nicole, RN Social History Tobacco Use [...] 10:[address] [place] [place] [address] Rachel Carrasco MD [facility] [place] [address] 09/21/2024 11:00 AM EST [place] [address] Rachel Carrasco MD [facility] [place] [address] documented as of this encounter Visit Diagnoses Not on filedocumented in this encounter Care Teams Master At Arms Relationship Specialty Start Date End Date Bin Bowman MD [address] [place] [address] PCP - General General Internal Medicine 04/21/1707/11 documented as of this encounter
--- OUTSIDE RECORDS SUMMARY | 2024-07-21 11:28 | XMS_ITS | Encounter Summary ---
[place] [address] Care Team Providers Care Semi Conductor Assembler Name Role Phone Bin Bowman MD Primary Care Provider Reason for Referral * Diagnostic Test (Routine) - Closed Specialty Diagnoses / Procedures Referred By Contac t Referred To Contact Cardiology Diagnoses PAF (paroxysmal atrial fibrillation) SVT (supraventricular tachycardia) Atrial flutter, unspecified type Procedures Ziopatch 48 Hrs-15 Days Fadi Escobar MD [facility] [place] [address] [facility] [place] [address] Referral ID Status Reason Start Date Expiration Date V isits Requested Visits Authorized [id number] Closed Specialty Service Requested 09/20/2021 12/21/2021 1 1 Reason for Visit * Diagnostic Test (Routine) - Closed Specialty Diagnoses / Procedures Referred By Contac t Referred To Contact Cardiology Diagnoses PAF (paroxysmal atrial fibrillation) SVT (supraventricular tachycardia) Atrial flutter, unspecified type Procedures Ziopatch 48 Hrs-15 Days Fadi Escobar MD [facility] [address] [facility] [place] [address] Referral ID Status Reason Start Date Expiration Date V isits Requested Visits Authorized [id number] Closed Specialty Service Requested 09/20/2021 12/21/2021 1 1 Encounter Details Date Type Department Care Team (Latest Contact Info) Description 09/20/2021 6:58 AM EST - 09/20/2021 11:59 PM EST Hospital Encounter Non-[place] [phone] Fadi Escobar MD [facility] CARDIOLOGY [place] [id number] PAF (paroxysmal atrial fibrillation); SVT (supraventricular tachycardia); [...] 10:[address] [place] [place] [address] Rachel Carrasco MD [facility] [place] [address] 09/21/2024 11:00 AM EST [place] [phone] Rachel Carrasco MD [facility] [place] [address] documented as of this encounter Procedures Procedure Name Priority Date/Time Associated Diagnosis Comments ZIOPATCH 48 HRS-15 DAYS Routine 09/20/2021 7:00 AM EST PAF (paroxysmal atrial fibrillation) SVT (supraventricular tachycardia) Atrial flutter, unspecified type documented in this encounter Results * Ziopatch 48 Hrs-15 Days (09/20/2021 7:00 AM EST) Anatomical Region Laterality Modality Other Narrative 10/24/2021 8:50 AM EST [facility] ? Zio Patch? Ambulatory Cardiac Event Monitor [...] type documented in this encounter Care Teams Semi Conductor Assembler Relationship Specialty Start Date End Date Bin Bowman MD [address] [address] PCP - General General Internal Medicine 04/21/1707/11 documented as of this encounter
--- OUTSIDE RECORDS SUMMARY | 2024-07-21 11:28 | XMS_ITS | Encounter Summary ---
Author Organization [facility] Address [facility] [place] [address] Care Team Providers Care Ict Business Development Manager Name Role Phone Bin Bowman MD Primary Care Provider Reason for Visit * Reason Comments Medication Refill Encounter Details Date Type Department Care Team (Late st Contact Info) Description 04/27/2021 Refill Cardiology at [address] [address] Juan Antonio Mathew, PA [facility] [place] [address] Medication Refill Social History Tobacco Use Types [...] AM EDT Received prescription refill request for [facility], [address] Refill request for 30 days with 1 refills Reviewed Epic record and last office note from Dr. Escobar dated 03/19/21 Recommendations: 1) Please see comments about Victoza above 2) Discontinue colchicine 3) Amiodarone 400 mg daily (to be reduced at a later date to 200 mg daily, and this is not intendedto be a local intermodal truck driver therapeutic plan)... monitoring for early signs of amiodarone toxicty remains important: > Renal/hepatic profile and TSH to be obtained in ~2-3 months > Annual ophthalmologic exam > Chest radiograph towards end of year (last image was February 14) > Some of this possibly can be obtained closer to home ([place], [place]) 4) Continue apixaban anticoagulation 5) Follow up ~July, sooner as needed - reconsider reduction amiodarone Refill prepped and forwarded to Provider for authorization FLAVIA Gary documented in this encounter Plan of Treatment Upcoming Encounters Date Type Department Care Team (Late st Contact Info) Description 09/21/2024 10:[address] [place] [place] [address] Rachel Carrasco MD [facility] [place] [address] 09/21/2024 11:00 AM EST [place] [address] Rachel Carrasco MD [facility] [place] [address] documented as of this encounter Visit Diagnoses Diagnosis Atrial arrhythmia Cardiac dysrhythmia, unspecified documented in this encounter Care Teams Ict Business Development Manager Relationship Specialty Start Date End Date Bin Bowman MD [address] [place] [address] PCP - General General Internal Medicine 04/21/1707/11 documented as of this encounter
--- OUTSIDE RECORDS SUMMARY | 2024-07-21 11:28 | XMS_ITS | Encounter Summary ---
Author Organization [facility] [place] [address] Care Team Providers Care Visitor Use Assistant Name Role Phone Bin Bowman MD Primary Care Provider [phone] Reason for Visit * Reason Onset Date Comments Outside Provider Call 02/12/2021 Encounter Details Date Type Department Care Team (Late st Contact Info) Description 02/12/2021 Telephone Cardiology at [address] [phone] Fadi Escobar MD [facility] [place] [address] Outside Provider Call Social History Tobacco Use [...] Dr. Escobar, Please call Dr. Culver at [facility] as soon as available. [phone] Thank you Shruthi * Telephone Encounter - [facility] Jami Mcgregor - 02/12/2021 11:[address] Culver office called again. They stated it was urgent to consult with Dr. Escobar on this pt. Heis in the ED at [facility] and has been cardioverted once already today. Please call him at [phone] documented in this encounter Plan of Treatment Upcoming Encounters Date Type Department Care Team (Late st Contact Info) Description 09/21/2024 10:[address] [place] [place] [phone] Rachel Carrasco MD [facility] [place] [address] 09/21/2024 11:00 AM EST [place] [address] Rachel Carrasco MD [facility] [place] [address] documented as of this encounter Visit Diagnoses Not on filedocumented in this encounter Care Teams Visitor Use Assistant Relationship Specialty Start Date End Date Bin Bowman MD [address] [place] [address] PCP - General General Internal Medicine 04/21/1707/11 documented as of this encounter
--- OUTSIDE RECORDS SUMMARY | 2024-07-21 11:28 | XMS_ITS | Encounter Summary ---
Author Organization [facility] [place] [address] Care Team Providers Care Housing Grant Analyst Name Role Phone Bin Bowman MD Primary Care Provider Reason for Visit * Reason Onset Date Comments Medication Refill 03/15/2021 Encounter Details Date Type Department Care Team (Late st Contact Info) Description 03/15/2021 Refill Cardiology at [address] [phone] Mary Daley, SONNY [facility] [place] [address] Medication Refill Social History Tobacco Use Types [...] 10:[address] [place] [phone] Rachel Carrasco MD [facility] [place] [address] 09/21/2024 11:00 AM EST Office [place] [address] Rachel Carrasco MD [facility] [place] [address] documented as of this encounter Visit Diagnoses Not on filedocumented in this encounter Care Teams Housing Grant Analyst Relationship Specialty Start Date End Date Bin Bowman MD [address] [place] [address] PCP - General General Internal Medicine 04/21/1707/11 documented as of this encounter
--- OUTSIDE RECORDS SUMMARY | 2024-07-21 11:28 | XMS_ITS | Encounter Summary ---
Author Organization [facility] Address [facility] [place] [address] Care Team Providers Care Green Chain Worker Name Role Phone Bin Bowman MD Primary Care Provider Encounter Details Date Type Department Care Team (Late st Contact Info) Description 12/05/2021 10:40 AM EST Office Visit Cardiology at [address] [address] Fadi Escobar MD [facility] [place] [address] Atrial arrhythmia Social History Tobacco Use Types [...] 12/05/2021 10:40 AM EST Cardiac Electrophysiology Clinic [facility] 2021 (last visit July 25, 2021) ?? Marketing Sales Consultant: Jose Culver MD Primary Care: Bin Bowman MD ?? Reason for Visit: Follow up Backgound: Mr. Aguilar is a 50 year old gentleman who has had multiple symptomatic episodes of paroxysmal atrial tachycardia +/- fibrillation (AF), with numerous trips to the local emergency room in [facility] for some of those symptomatic episodes. ?? [...] reduced to 200 mg daily as of kasdh-rs-asp June. He reported early on having felt [...] 2) Coronary artery disease >?July 2017 at [facility]: Non-STEMI (EMMY of OM1) >?LVEF 55-60% >?Aspirin, statin, beta hleen 3) Hypertension 4) Dyslipidemia 5) Obesity 6) [...] 20 mg daily, ...) ?? 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 Stress??[facility]??Moderate size severely intense fixed inferolateraldefect. LVEF [...] inferior infarction. Electrocardiogram??(April 27, 2020):??Sinus rhythm 82/minute, NE 156 m, QRS duration 102 ms, QTc 416ms, old inferior infarction. Chest Radiograph (July 18, 2021): No indication of amiodarone toxicity. Blood Tests (July 19, 2021; [place], [place]): Heaptic enzymes normal (albumin and calcium slight [...] Appointment [place] [address] Rachel Carrasco MD [facility] [place] [address] 09/21/2024 11:00 AM EST Office [place] [address] Rachel Carrasco MD [facility] [place] [address] documented as of this encounter Visit Diagnoses Diagnosis Atrial arrhythmia Cardiac dysrhythmia, unspecified documented in this encounter Care Teams Green Chain Worker Relationship Specialty Start Date End Date Bin Bowman MD [address] [place] [address] PCP - General General Internal Medicine 04/21/1707/11 documented as of this encounter
--- OUTSIDE RECORDS SUMMARY | 2024-07-21 11:28 | XMS_ITS | Encounter Summary ---
[place] [address] Care Team Providers Care Data Architect Name Role Phone Bin Bowman MD Primary Care Provider Reason for Visit * Reason Onset Date Comments Follow-up 02/21/2021 Encounter Details Date Type Department Care Team (Late st Contact Info) Description 02/21/2021 Telephone Cardiology at [address] [phone] Lennie Garcia, RN Follow-up Social History Tobacco [...] BP is low 100's/60's Discussed w/ Dr. Luz who states that pt should decrease metoprolol [...] 10:[address] [place] [place] [address] Rachel Carrasco MD [facility] [place] [address] 09/21/2024 11:00 AM EST [place] [address] Rachel Carrasco MD [facility] [place] [address] documented as of this encounter Visit Diagnoses Not on filedocumented in this encounter Care Teams Data Architect Relationship Specialty Start Date End Date Bin Bowman MD [address] [place] [address] PCP - General General Internal Medicine 04/21/1707/11 documented as of this encounter
--- OUTSIDE RECORDS SUMMARY | 2024-07-21 11:28 | XMS_ITS | Encounter Summary ---
[place] [address] Care Team Providers Care Fill Manager Name Role Phone Bin Bowman MD Primary Care Provider [phone] Reason for Visit * Reason Onset Date Comments Prior Authorization 03/08/2021 colchicine Encounter Details Date Type Department Care Team (Late st Contact Info) Description 03/08/2021 Telephone Cardiology at [address] [phone] Fady Lord RNflexboard operator (colchicine) Social History Tobacco Use Types Packs/Day [...] Medication Prior Authorization for [place] [address] Patient: Rolo Aguilar Patient : 1970 Insurance [...] Date: 03/14/21 End Date: 03/14/22 Case/Reference #: [id number] documented in this encounter Plan of Treatment Upcoming Encounters Date Type Department Care Team (Late st Contact Info) Description 09/21/2024 10:[address] [place] [address] Rachel Carrasco MD [facility] [place] [address] 09/21/2024 11:00 AM EST [place] [address] Rachel Carrasco MD [facility] [place] [address] documented as of this encounter Visit Diagnoses Not on filedocumented in this encounter Care Teams Fill Manager Relationship Specialty Start Date End Date Bin Bowman MD [address] [place] [address] PCP - General General Internal Medicine 04/21/1707/11 documented as of this encounter
--- OUTSIDE RECORDS SUMMARY | 2024-07-21 11:28 | XMS_ITS | Encounter Summary ---
Author Organization [facility] [place] [address] Care Team Providers Care Painter Chassis Name Role Phone Bin Bowman MD Primary Care Provider [phone] Reason for Visit * Reason Comments Tachycardia Shortness of Breath * Auth/Cert Specialty Diagnoses / Procedures Referred By Contestuardo t Referred To Contact Diagnoses Atrial flutter Procedures EMERGENCY IPI Referral ID Status Reason Start Date Expiration Date Visits Re quested Visits Authorized [id number] 1 1 Encounter Details Date Type Department Care Team (Latest Contact Info) Description 02/14/2021 1:46 PM EDT - 02/17/2021 3:55 PM EDT Hospital Encounter [place] [phone] Aileen Francis DO [facility] [place] [address] Nathen Figueroa MD [facility] [place] [address] Nilsa Goldstein MD [facility] [address] Ivy Hurd MD [facility] [place] [address] Atrial flutter (Primary Dx); PAF (paroxysmal atrial fibrillation) Discharge Disposition: Home Social History Tobacco Use Types Packs/Day Years Used Date Smoking Tobacco: Former Cigarettes 1.5 15 1 2013 Smokeless Tobacco: Former Chew Alcohol Use [...] Rolo Aguilar Patient Age: 50 y.o. Language: Tamazight Race: White Ethnicity: Not nor Admit date: 02/14/2021 Discharge date and time: 02/17/21 Attending Physician: Nilsa Goldstein MD Discharge Physician: Fadi Escobar MD Follow-up Recommendations for Providers: Mr. Aguilar presented to [facility] ED on 02/14/21 in atrial fibrillation with RVR. He was then admitted for evaluation and management of symptomatic atrial fibrillation. He is being discharged in sinus rhythm on amiodarone 400 mg bid, which will decrease to 400 mg QD in one week. Mr Aguilar is anticoagulated on Apixaban 5 mg BID. Inpatient Provider Contact Information: Cardiac Electrophysiology - Weekends and holidays call [phone]; ask for legal receptionist telecommunications officer. Discharge Diagnoses (Hospital Problems) and Secondary Diagnoses [...] 3:20 PM Fadi Escobar MD Cardiology at [facility] Arrive at: Web Editor Area [phone] Cardiac Electrophysiology Attending This patient was seen and evaluated during the morning of February 17; I also called to check on himApril , and to reiterate the medication plans (reduce amiodarone from 400 mg twice daily to 400mg daily as of February 24; he remain on metoprolol succinate [...] I answered ll of their questions, and dwayne anticipate that he can go home this [...] Note: Added automatically from request for surgery [id number] ??? PAF (paroxysmal atrial fibrillation) Overview Note: Added automatically from request for surgery [id number] ??? Flutter-fibrillation ??? H/O cardiac radiofrequency ablation ??? Coronary disease Overview Note: ?? 2017: STEMI. PCI of OM1. EF 60%. Many ER visits to [facility] after this. ??? Heart palpitations ??? [...] requiring pressor support in setting of acute iyzqa-kk-ngblysnl pericardial effusion for which a pericardiocentesis was [...] he was scheduled for an outpatientDCCV at [facility] later this month. Given his progressive and intolerable symptoms, Mr. Aguilar presented to [facility] ED on 02/14/21 in atrial fibrillation with [...] - Likely SR at 70bpm with short NM of 106ms, QRS duration 100ms, QT 440ms, [...] assess symptoms /rates with exertion. His primary programmer numerical control assumes the EP service tomorrow and will discuss future management (AAD vs. Repeat ablation vs. uqku-noq-uczium strategy). Plan: 1. Continue amiodarone 400mg po BID 2. Continue anticoagulation with Eliquis 3. Continue beta-helen as tolerated 4. Encourage ambulation today I appreciate the opportunity to be involved with Mr. Aguilar's care. Please do not hesitate to contact EP with any further questions (pager [phone]). SONNY Grover 02/16/2021 Pager: [phone] Addendum Converted to sinus rhythm overnight. He [...] OM1. EF 60%. Many ER visits to [facility] after this. ??? Heart palpitations ??? [...] dry. Multiple tattoos Lab Comments: Recent Labs 02/15/21 0105 02/14/21 1413 WBC 9.7* 11.8* HGB 13.4* 14.0 HCT 42.0 43.2 PLATELET 353 375* No results for input(s): INR in the last 168 hours. Recent Labs 02/15/21 0105 02/14/21 1413 NA 143 138 K 4.0 3.9 [...] with rapid ventricular rates; most recently to [facility], where he believes that he [...] recurrent hospitalizations/ED visits/ DCCV. He presented to [facility] ED today with symptomatic tachycardia/plapitations. Pt reports was in usual state of health till 2 AM on 02/12/2021 while watching TV had a recurrence ofpalpitations with dyspnea, dizziness as well as diaphoresis. He checked his heart rate and it was in the 170s. Called EMS and landed at [facility] 40 minutes away. Thereby he got [...] platelets 375 K Sodium 138, potassium 3.9, BUN/model builder 13/1.09 Troponin<0.01, TSH 2.77 Covid PCR undetectable Meds received: Adenosine 6 mg IV once for narrow complex tachycardia in the ED showed underlying a flutter. Lopressor 5 mg IV once slowed ventricular response. Fentanyl 50 MCG IV once. After consultation with the ED it was decided 20 patient to EP service with initiation of amiodarone. Personal social history: with stepchildren. 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 Past smoker 1.5 [...] performed by Colt Hewitt MD [facility] MAIN OR ??? PRO UNLISTED LAPAROSCOPIC PX LVR N/A 07/21/2018 LAPAROSCOPIC LIVER BIOPSY (WRVU 16.52) performed by Colt Hewitt MD at [facility] MAIN OR ??? PRO UPPER GI ENDOSCOPY, BIOPSY N/A 12/29/2017 UPPER GASTROINTESTINAL ENDOSCOPY,WITH BIOPSY SINGLE OR MULTIPLE (WRVU 2.49) performed by Yusuf Tucker MD at [facility] ENDOSCOPY ??? PRO UPPER GI ENDOSCOPY, DIAGNOSTIC N/A 12/29/2017 EGD, UPPER GI ENDOSCOPY performed by Yusuf Tucker MD at [facility] ENDOSCOPY ??? TONSILLECTOMY Significant Family History: Family [...] Gatherings with Friends and Family: ??? Attends Confucianism Services: ??? Active Member of Clubs or [...] visualized the following studies: TTE 01/22/21 from [facility] No pericardial effusion. EF 60-65%. Large [...] Troponin-T <0.01 0.00 - 0.00 ng/mL TSH Pepin Result Value Ref Range TSH 2.77 0.27 [...] Escobar here. He recently was cardioverted at [facility] 2 days ago which transiently converted [...] and cardioversion. I did speak with the programmer numerical control on-call given the complexity of patient's presentations and he did recommend starting with low- dose adenosine 6 mg to determine if this is SVT versus atrial flutter witha buried flutter wave. Patient did report that he received adenosine once which caused a tachyarrhythmia however the on-call lecture product scientist did review records and did inform you [...] He was cardioverted 2 days ago at [facility] and then went right back into afib. He is feeling short of breath and a little dizzy. He contacted his EP doctor here (melisa) and was told to come to the ED. He had an ablation on January 10. COVID-19 Screening: Symptoms [] Fever [] Cough [x] SOB [] None Exposure [] Recent travel outside [place] [] Contact with known or suspected positive [...] Component Value Date COVID19 Not Detected 07/05/2020 [id number] Not Detected 02/14/2021 Past medical History: Past [...] spouse would be surrogate decision maker per [place] surrogate decision making law. (Only good for 90 days) Any patient receiving care at [facility] must abide by [place] law. The hierarchy for surrogate decision making [...] (i) The agent with financial power of litigation attorney associate or a conservator appointed in accordance with RSA 464-A. (j) The guardian of the patient???s estate. Current Coping/Education/Information Needs: Confirms that providers have been good about communicating information to them and denies current questions. Current Functional Ability: Independent Functional Status Prior to Admission: Independent Home Environment: Patient lives with spouse in a house. Current DME: none Home Address Confirmed as: [address] [place] [address] Social & Family Supports: Extended Emergency Contact Information Primary Emergency Contact: Autumn Aguilar Address: [address] [facility] [place] [address] [facility] Mobile Relation: Spouse Secondary Emergency Contact: Whitney Piedra Address: [address] [place] [address] [facility] Relation: Sibling Primary Care Provided by: self [...] Insurance: N/A Prescription Coverage: Yes Preferred Pharmacy: [facility] [address] [place] [address] - [address] [facility] [address] [facility] [address] [facility] [address] Primary Care Provider: Bin Bowman MD [phone] Patient/Caregiver Goals of Treatment: DC home Potential [...] of care planning. Chanell Fatima, RN, MSN, department assistant Office of Care Management Pager: [phone] Work * ED Triage - Deepika To RN - 02/14/2021 1:15 PM EDT HPI (Adult) Stated Reason for Visit: I was cardioverted 2 days ago at [facility] and went back into tachycardia after 15 minutes. I have been 120-180 heart rate since. History Obtained From: patient Pt. Referred to come here by cardiology for persistent tachycardia. Pt. Has hx pericarditis. documented in this encounter Plan of Treatment Upcoming Encounters Date Type Department Care Team (Late st Contact Info) Description 09/21/2024 10:[address] [place] [place] [address] Rachel Carrasco MD [facility] [place] [address] 09/21/2024 11:00 AM EST [place] [address] Rachel Carrasco MD [facility] [place] [address] Scheduled Orders Name Type Priority Associated Diagnoses [...] 10: 10 PM EDT RAPID COVID-19 PCR ([facility]) STAT 02/14/2021 6:43 PM EDT HC THYROID [...] 1:14 PM EDT Cardioversion Elective Arrhythmia External (85921) atrial flutter documented in this encounter Results * Electrolytes panel (02/17/2021 6:00 AM EDT) Sodium 138 135 - 145 mmol/L [facility] Potassium 3.6 3.5 - 5.0 mmol/L [facility] Comment: Please note: ??Patients with WBC >100,000 may have falsely elevated Potassium levels. ??For accurate Potassium quantification in these patients send serum separator tube (gold top) for subsequent determinations. ??Contact the Clinical Chemistry Laboratory if there are any questions. Chloride 102 98 - 107 mmol/L [facility] Carbon Dioxide 26 22 - 31 mmol/L [facility] Anion Gap 10 5 - 15 mmol/L [facility] Blood specimen (specimen) 02/17/2021 6:00 AM EDT 02/17/2021 6:13 AM EDT Narrative Resulting Agency Comment Spec In Lab Brooks Reyna MD CHEMISTRY ORDER BELEN Performing Organization Address City/[facility]/ZIP Co de Phone Number [facility] [place] [address] * EKG 12 Lead (02/16/2021 7:45 AM EDT) Ventricular rate 70 BPM MUSE SYSTEM Atrial Rate 70 BPM MUSE SYSTEM P-R Interval 106 ms MUSE SYSTEM QRS Duration 100 ms MUSE SYSTEM Q-T Interval 440 ms MUSE SYSTEM QTC Calculated (Bezet) 475 ms MUSE SYSTEM Calculated P [place] 55 degrees MUSE SYSTEM Calculated R [place] 33 degrees MUSE SYSTEM Calculated T [place] 21 degrees MUSE SYSTEM INTERPRETATION Sinus rhythm Inferior infarct , age undetermined Nonspecific T wave abnormality Abnormal ECG When compared with ECG of 14-FEB-2021 13:14, Sinus rhythm has replaced Atrial flutter Confirmed by MD Corby, Roberto Carlos Lopez ([id number]) on 02/16/2021 3:30:41 PM MUSE SYSTEM 02/16/2021 7:45 AM EDT 02/16/2021 3:30 PM EDT Brooks Reyna MD ECG ORDERABLES Performing Organization Address City/[facility]/ZIP Co de Phone Number MUSE SYSTEM * Lavender Tube HOLD (02/16/2021 4:00 AM EDT) Lavender Hold Sample in lab. [facility] Blood specimen (specimen) Venous Draw / Unknown 02/16/2021 4:00 AM EDT 02/16/2021 4:24 AM EDT Brooks Reyna MD HEMATOLOGY ORDE RABLES [facility] [place] [address] * Electrolytes panel (02/16/2021 4:00 AM EDT) Pathologist [facility] Sodium 141 135 - 145 mmol/L [facility] Potassium 3.7 3.5 - 5.0 mmol/L [facility] Comment: Please note: ??Patients with WBC >100,000 may have falsely elevated Potassium levels. ??For accurate Potassium quantification in these patients send serum separator tube (gold top) for subsequent determinations. ??Contact the Clinical Chemistry Laboratory if there are any questions. Chloride 104 98 - 107 mmol/L [facility] Carbon Dioxide 26 22 - 31 mmol/L [facility] Anion Gap 11 5 - 15 mmol/L [facility] Blood specimen (specimen) 02/16/2021 4:00 AM EDT 02/16/2021 4:23 AM EDT Narrative Resulting Agency Comment Spec In Lab Brooks Reyna MD CHEMISTRY ORDER BELEN [facility] [place] [address] * Troponin (02/15/2021 7:17 AM EDT) [facility] Troponin-T <0.01 0.00 - 0.00 ng/mL [facility] Comment: The 99th percentile for Troponin T is less than 0.01 ng/mL, any detectable cTnT concentration using this assay should be considered elevated. According to the third universal definition of myocardial infarction the following criteria with a clinical presentation consistent with acute myocardial ischemia meets the diagnosis for a myocardial infarction ([place]). Detection of a rise and/or fall of cTnT, with at least one value greater than the 99th percentile (> or = 0.01) and with at least one of the following ?? Symptoms of ischemia ?? New or presumed new significant RA-mrgqxla-M wave (ST-T) changes or new left bundle [...] additional sample may be indicated. Reference: Third [place] Definition of Myocardial Infarction. Journal of the [place] College [employer] 2012;60:1581-98 Blood specimen (specimen) 02/15/2021 7:17 AM EDT 02/15/2021 7:49 AM EDT Narrative Resulting Agency Comment Spec In Lab Brooks Reyna MD CHEMISTRY ORDER BELEN [facility] [place] [address] * (ABNORMAL) Heparin (unfractionated) Level (02/15/2021 7:17 AM EDT) UF Heparin 1.49(Crit ical) IU/mL [facility] Comment: Critical Result called by [...] Lab Brooks Reyna MD HEMATOLOGY SCOOTER YOUNGBLOOD [facility] [place] [address] * Differential, Automated (02/15/2021 1:05 AM EDT) Neutrophil % 59.6 % [facility] Neutrophil Absolute 5.76 1.70 - 6.10 x10(3)/[facility]ORAT[facility] Lymph % 32.9 % [facility] Lymphocytes Abs 3.2 0.9 - 3.2 x10(3)/[facility]ORATORY Monocyte % 5.8 % [facility] Monocyte Abs 0.6 0.3 - 0.9 x10(3)/[facility]ORATORY Eos % 1.0 % [facility] Eosinophils Abs 0.1 0.0 - 0.4 x10(3)/[facility]ORATORY Basophil % 0.3 % [facility] Baso Absolute 0.0 0.0 - 0.1 x10(3)/[facility] LABORATORY Immature Gran % 0.40 % [facility] Comment: Immature granulocytes(IG's)percentage and absolute count will include metamyelocytes, myelocytes, and promyelocytes. Blood smears from CBCs yielding IG's will be scanned manually for concordance. If this scan disagrees with the automated IG or if promyelocytes are noted, a manual differential will be performed. Immature Gran Absolute 0.04 0.00 - 0.04 x10(3)/[facility]ATORY Blood specimen (specimen) 02/15/2021 1:05 AM EDT 02/15/2021 1:21 AM EDT Narrative Resulting Agency Comment Spec In Lab Brooks Reyna MD HEMATOLOGY SCOOTER YOUNGBLOOD [facility] [place] [address] * (ABNORMAL) Hemogram (02/15/2021 1:05 AM EDT) White Blood Cell 9.7(H) 4.0 - 9.5 x10(3)/mc L [facility] Red Blood Cell 5.16 4.58 - 5.54 x10(6)/mc L [facility] Hemoglobin 13.4(L) 13.7 - 16.5 gm/dL [facility] Hematocrit 42.0 40.5 - 48.5 % [facility] Mean Cell Volume 81.4(L) 82.9 - 93.1 fL [facility] Mean Cell Hemoglobin 26.0(L) 27.5 - 32.1 pg [facility] Mean Cell Hemoglobin Concentration 31.9(L) 32.0 - 35.7 gm/dL [facility] Platelet 353 145 - 357 x10(3)/mc L [facility] RDW Standard Deviation 41.5 36.0 - 45.0 [facility]AT[facility] RDW coefficient of variation 14.0(H) 11.4 - 13.8 % [facility] Mean Platelet Volume 9.9 7.6 - 12.9 [facility]ORATORY NRBC% auto 0.0 % [facility] NRBC Absolute 0.000 0.000 - 0.000 x10(3)/ L [facility] Blood specimen (specimen) 02/15/2021 1:05 AM EDT 02/15/2021 1:21 AM EDT Narrative Resulting Agency Comment Spec In Lab Brooks Reyna MD HEMATOLOGY ORDLuis YOUNGBLOOD Performing Organization Address City/[facility]/ZIP Co de Phone Number [facility] [place] [address] * (ABNORMAL) Heparin (unfractionated) Level (02/15/2021 1:05 AM EDT) UF Heparin 1.92(Crit ical) IU/mL [facility] Comment: Critical Result called by [...] MD HEMATOLOGY SCOOTER YOUNGBLOOD Performing Organization Address City/State/[facility] Co de Phone Number [facility] [place] [address] * Magnesium (02/15/2021 1:05 AM EDT) Pathologist [facility] Magnesium 0.81 0.69 - 1.07 mmol/L [facility] Blood specimen (specimen) 02/15/2021 1:05 AM EDT 02/15/2021 1:21 AM EDT Narrative Resulting Agency Comment Spec In Lab Brooks Reyna MD CHEMISTRY ORDER BELEN [facility] [place] [address] * Basic Metabolic Panel (non-fasting) (02/15/2021 1:05 AM EDT) Glucose 137 65 - 199 mg/dL [facility] Comment:Diabetes: >=200 mg/d L plus symptoms Blood Urea Nitrogen 13 10 - 20 mg/dL [facility] Creatinine 1.08 0.80 - 1.50 mg/dL [facility] Sodium 143 135 - 145 mmol/L [facility] Potassium 4.0 3.5 - 5.0 mmol/L [facility] Comment: Please note: ??Patients with WBC >100,000 may have falsely elevated Potassium levels. ??For accurate Potassium quantification in these patients send serum separator tube (gold top) for subsequent determinations. ??Contact the Clinical Chemistry Laboratory if there are any questions. Chloride 104 98 - 107 mmol/L [facility] Carbon Dioxide 27 22 - 31 mmol/L [facility] Anion Gap 12 5 - 15 mmol/L [facility] Calcium 9.5 8.5 - 10.5 mg/dL [facility] Est Glomerular Filtration Rate 79 >=60 mL/min/1. 73 m?? [facility] Comment: This patient? s estimated [...] MD CHEMISTRY ORDER BELEN Performing Organization Address City/[facility]/ZIP Co de Phone Number [facility] [place] [address] * Gold Tube HOLD (02/14/2021 11:16 PM EDT) Gold Hold Sample in lab. [facility] Blood specimen (specimen) Venous Draw / Unknown 02/14/2021 11:16 PM EDT 02/14/2021 11:21 PM EDT Brooks Reyna MD CHEMISTRY ORDER BELEN Performing Organization Address [facility] Co de Phone Number [facility] [place] [address] * Troponin (02/14/2021 11:16 PM EDT) [facility] Troponin-T <0.01 0.00 - 0.00 ng/mL [facility] Comment: The 99th percentile for Troponin T is less than 0.01 ng/mL, any detectable cTnT concentration using this assay should be considered elevated. According to the third universal definition of myocardial infarction the following criteria with a clinical presentation consistent with acute myocardial ischemia meets the diagnosis for a myocardial infarction ([place]). Detection of a rise and/or fall of cTnT, with at least one value greater than the 99th percentile (> or = 0.01) and with at least one of the following ?? Symptoms of ischemia ?? New or presumed new significant XI-ztoioki-B wave (ST-T) changes or new left bundle [...] additional sample may be indicated. Reference: Third [place] Definition of Myocardial Infarction. Journal of the [place] College [employer]iology 2012;60:1581-98 Blood specimen (specimen) 02/14/2021 11:16 PM EDT 02/14/2021 11:20 PM EDT Narrative Resulting Agency Comment Spec In Lab Brooks Reyna MD CHEMISTRY ORDER BELEN Performing Organization Address [facility] Co de Phone Number [facility] [place] [address] * (ABNORMAL) pro-Brain Natriuretic Peptide (02/14/2021 11:16 PM EDT) NT-proBNP 966(H) <=124 pg/mL [facility] Blood specimen (specimen) 02/14/2021 11:16 PM EDT 02/14/2021 11:20 PM EDT Narrative Resulting Agency Comment Spec In Lab Brooks Reyna MD CHEMISTRY ORDER BELEN Performing Organization Address [facility] Co de Phone Number [facility] [place] [address] * XR Chest One View (02/14/2021 10:10 [...] who have questions please contact the health post acute care nurse practitioner that requested your imaging first. ? Electronically signed by: Tali Chapa MD, [facility] ([phone]), at 02/14/2021 10:28 PM Narrative 02/14/2021 10:28 [...] patients who have questions please contactthe health post acute care nurse practitioner that requested your imaging first. Brooks Reyna MD IMG DX ORDERABL ES * COVID-19 PCR (02/14/2021 6:43 PM EDT) SARS-CoV-2 RNA (Rapid) Not Detected Not Detected [facility] Comment: This result should be [...] on the instructions for use provided by [employer] and additional guidance provided by CDC and FDA. Testing is performed in the Clinical Genomics [facility] Laboratory within the Department of Pathology and Laboratory Medicine at [facility], certified under the Clinical Laboratory Improvement [...] fact sheets at the following FDA website: https://www.fda.gov/medical-devices/maicmmaongk-dlmwkxo-4455-ocrgt-24-iiamvzgsr- use-a ahopaelgwiluw-tmpljmc-jxzhlml/vnlbf-sfcejvalust-jydm SARS-CoV-2 Source [employer] Swab MA R[facility] Nasopharyngeal swab (specimen) 02/14/2021 6:43 PM EDT 02/14/2021 7:12 PM EDT Comment:Symptoms->Surveillan ce Narrative Resulting Agency Comment Spec In Lab Nathen Figueroa MD MICROBIOLOGY - NERAL ORDERABLES Performing Organization Address [facility]/ZIP Co de Phone Number [facility] [address] * Blue Tube HOLD (02/14/2021 2:13 PM EDT) Blue Hold Sample in lab. [facility] Blood specimen (specimen) Venous Draw / Unknown 02/14/2021 2:13 PM EDT 02/14/2021 2:30 PM EDT Juanito DENNIS HEMATOLOGY ORDERABLE S Performing Organization Address [facility]/ZIP Co de Phone Number [facility] [place] [address] * (ABNORMAL) Differential, Automated (02/14/2021 2:13 PM EDT) Neutrophil % 67.6 % [facility] Neutrophil Absolute 7.95(H) 1.70 - 6.10 x10(3)/mc L [facility] Lymph % 23.4 % [facility] Lymphocytes Abs 2.8 0.9 - 3.2 x10(3)/mc L [facility] Monocyte % 7.6 % [facility] Monocyte Abs 0.9 0.3 - 0.9 x10(3)/[facility] Eos % 0.6 % [facility] Eosinophils Abs 0.1 0.0 - 0.4 x10(3)/[facility] Basophil % 0.4 % [facility] Baso Absolute 0.0 0.0 - 0.1 x10(3)/[facility] Immature Gran % 0.40 % [facility] Comment: Immature granulocytes(IG's)percentage and absolute count will include metamyelocytes, myelocytes, and promyelocytes. Blood smears from CBCs yielding IG's will be scanned manually for concordance. If this scan disagrees with the automated IG or if promyelocytes are noted, a manual differential will be performed. Immature Gran Absolute 0.05(H) 0.00 - 0.04 x10(3)/[facility] Blood specimen (specimen) 02/14/2021 2:13 PM EDT 02/14/2021 2:30 PM EDT Narrative Resulting Agency Comment Spec In Lab Juanito DENNIS HEMATOLOGY ORDERABLE S [facility] [place] [address] * (ABNORMAL) Hemogram (02/14/2021 2:13 PM EDT) White Blood Cell 11.8(H) 4.0 - 9.5 x10(3)/[facility] Red Blood Cell 5.27 4.58 - 5.54 x10(6)/[facility] Hemoglobin 14.0 13.7 - 16.5 gm/dL [facility] Hematocrit 43.2 40.5 - 48.5 % [facility] Mean Cell Volume 82.0(L) 82.9 - 93.1 fL [facility] Mean Cell Hemoglobin 26.6(L) 27.5 - 32.1 pg [facility] Mean Cell Hemoglobin Concentration 32.4 32.0 - 35.7 gm/dL [facility] Platelet 375(H) 145 - 357 x10(3)/mc L [facility] RDW Standard Deviation 41.3 36.0 - 45.0 fL [facility] RDW coefficient of variation 13.9(H) 11.4 - 13.8 % [facility] Mean Platelet Volume 10.5 7.6 - 12.9 fL [facility] NRBC% auto 0.0 % [facility] NRBC Absolute 0.000 0.000 - 0.000 x10(3)/mc L [facility] Blood specimen (specimen) 02/14/2021 2:13 PM EDT 02/14/2021 2:30 PM EDT Narrative Resulting Agency Comment Spec In Lab Juanito DENNIS HEMATOLOGY ORDERABLE S [facility] [place] [address] * TSH Pepin (02/14/2021 2:13 PM EDT) Pathologist [facility] Thyroid Stimulating Hormone 2.77 0.27 - 4.20 mcIU/mL [facility] Blood specimen (specimen) 02/14/2021 2:13 PM EDT 02/14/2021 2:30 PM EDT Narrative Resulting Agency Comment Spec In Lab Rolo Wynn MD CHEMISTRY ORDERABLE S [facility] [place] [address] * Troponin (02/14/2021 2:13 PM EDT) Pathologist [facility] Troponin-T <0.01 0.00 - 0.00 ng/mL [facility] Comment: The 99th percentile for Troponin T is less than 0.01 ng/mL, any detectable cTnT concentration using this assay should be considered elevated. According to the third universal definition of myocardial infarction the following criteria with a clinical presentation consistent with acute myocardial ischemia meets the diagnosis for a myocardial infarction ([place]). Detection of a rise and/or fall of cTnT, with at least one value greater than the 99th percentile (> or = 0.01) and with at least one of the following ?? Symptoms of ischemia ?? New or presumed new significant MN-[id number]-M wave (ST-T) changes or new left bundle [...] additional sample may be indicated. Reference: Third [place] Definition of Myocardial Infarction. Journal of the [place] [employer] 2012;60:1581-98 Blood specimen (specimen) 02/14/2021 2:13 PM EDT 02/14/2021 2:30 PM EDT Narrative Resulting Agency Comment Spec In Lab Rolo Wynn MD CHEMISTRY ORDERABLE S [facility] [place] [address] * Basic Metabolic Panel (non-fasting) (02/14/2021 2:13 PM EDT) Glucose 109 65 - 199 mg/dL [facility] Comment:Diabetes: >=200 mg/d L plus symptoms Blood Urea Nitrogen 13 10 - 20 mg/dL [facility] Creatinine 1.09 0.80 - 1.50 mg/dL [facility] Sodium 138 135 - 145 mmol/L [facility] Potassium 3.9 3.5 - 5.0 mmol/L [facility] Comment: Please note: ??Patients with WBC >100,000 may have falsely elevated Potassium levels. ??For accurate Potassium quantification in these patients send serum separator tube (gold top) for subsequent determinations. ??Contact the Clinical Chemistry Laboratory if there are any questions. Chloride 101 98 - 107 mmol/L [facility] Carbon Dioxide 25 22 - 31 mmol/L [facility] Anion Gap 12 5 - 15 mmol/L [facility] Calcium 9.8 8.5 - 10.5 mg/dL [facility] Est Glomerular Filtration Rate 78 >=60 mL/min/1. 73 m?? [facility] Comment: This patient? s estimated [...] Lab Rolo Wynn MD CHEMISTRY ORDERABLE S [facility] [place] [address] * EKG 12 Lead (02/14/2021 1:14 PM EDT) Ventricular rate 129 BPM MUSE SYSTEM Atrial Rate 258 BPM MUSE SYSTEM QRS Duration 100 ms MUSE SYSTEM Q-T Interval 370 ms MUSE SYSTEM QTC Calculated (Bezet) 542 ms MUSE SYSTEM Calculated R [place] 68 degrees MUSE SYSTEM Calculated T [place] 69 degrees MUSE SYSTEM INTERPRETATION Atrial flutter with 2:1 A-V conduction Nonspecific ST and T wave abnormality Abnormal ECG When compared with ECG of 05-FEB-2021 14:45, Atrial flutter has replaced Sinus rhythm Vent. rate has increased BY ??65 BPM Confirmed by MD De Anda Daniel ([id number]) on 02/15/2021 4:27:28 PM MUSE SYSTEM 02/14/2021 [...] on Fri02/15/21 at 1700, Until Discontinued, Routine Given 02/16/2021 [...] on Fri02/15/21 at 0200, Until Discontinued, Routine Given 02/16/2021 [...] Rachana Almonte RN)2128 (Given - Provider: Franco Kerns, RN) 0914 (Given - Provider: Autumn Cotter, FLAVIA - Comment: qtc 0.43) apixaban (Eliquis) tablet 5 mg 5 mg, Oral, 2 TIMES DAILY, First dose on Candi 02/15/21 at 1200, Until Discontinued, Anticoagulant, Routine, Restricted anticoagulant, choose the most appropriate response: Approved indication of non-valvular atrial fibrillation 1321 (Given - Provider: Luis Alberto Palafox RN)2126 (Given - Provider: Valentin North RN) 08 (Given - Provider: Rachana Almonte, FLAVIA)2128 (Given - Provider: Franco Kerns RN) 0915 (Given - Provider: Autumn Cotter RN) aspirin EC tablet 81 mg 81 mg, Oral, DAILY, First dose on Candi 02/15/21 at 0900, Until Discontinued, Routine 0850 (Given - Provider: Luis Alberto Palafox RN) 0817 (Given - Provider: Rachana Almonte RN) 0914 (Given - Provider: Autumn Cotter, FLAVIA) atorvastatin (Lipitor) tablet 20 mg 20 mg, Oral, EVERY EVENING, First dose on Candi 02/15/21 at 1700, Until Discontinued, Routine 1614 (Given [...] other day) 0818 (Given - Provider: Rachana Almonte RN) furosemide (Lasix) tablet 20 mg 20 mg, Oral, DAILY, First dose on Candi 02/15/21 at 0900, Until Discontinued, Routine 0850 (Given - Provider: Luis Alberto Palafox RN) 0817 (Given - Provider: Rachana Almonte RN) 0915 (Given - Provider: Autumn Cotter, FLAVIA) lamoTRIgine (LaMICtal) tablet 100 mg 100 mg, Oral, NIGHTLY, First dose (after last modification) on Fri02/15/21 at 0200, Until Discontinued, Routine 0117 (Given - Provider: Lashawn Foley RN)2123 (Given - Provider: Valentin North RN) 2129 (Given - Provider: Franco Kerns RN) [...] on Fri02/16/21 at 2100, Until Discontinued, Routine 2128 (Given - Provider: Franco Kerns RN) 0915 (Given - Provider: Autumn Cotter, FLAVIA) metoprolol tartrate (Lopressor) tablet 50 mg (CANCELED) 50 mg, Oral, EVERY 8 HOURS SCHEDULED, First dose on Fri02/15/21 at 0600, Until Discontinued, Hold for HR <60 or SBP<100, Routine 0521 (Given - Provider: Lashawn Foley, FLAVIA)1321 (Given - Provider: Luis Alberto Palafox, FLAVIA) metoprolol tartrate (Lopressor) tablet 75 mg (COMPLETED) 75 mg, Oral, EVERY 8 HOURS SCHEDULED, 1 dose, First dose (after last modification) on Fri02/15/21 at 2200, Hold for HR <60 or SBP<100, Routine 2125 (Given - Provider: Valentin North RN) pantoprazole EC (Protonix) tablet 40 mg 40 mg, Oral, DAILY, First dose on Fri02/15/21 at 0900, Until Discontinued, DO NOT CRUSH OR OPEN, Routine 0849 (Given - Provider: Luis Alberto Palafox, FLAVIA) 0818 (Given - Provider: Rachana Almonte, FLAVIA) 0915 (Given - Provider: Autumn Cotter, FLAVIA) sodium chloride 0.9 % (flush) flush 5 mL 5 mL, Intravenous, 2 TIMES DAILY, First dose on Fri02/14/21 at 2159, Until Discontinued, Routine 0851 (Given - Provider: Luis Alberto Palafox, FLAVIA)2126 (Given - Provider: Valentin North, FLAVIA) 0822 (Given - Provider: Rachana Almonte, FLAVIA)2132 (Given - Provider: Franco Kerns, FLAVIA) 0900 (Not Given - Provider: Autumn Cotter, FLAVIA - Reason: Contraindicated) sodium chloride 0.9 % (flush) flush 5 mL 5 mL, Intravenous, 2 TIMES DAILY, First dose on Fri02/16/21 at 1145, Until Discontinued, Routine 1145 (Not Given - Provider: Rachana Almonte, FLAVIA - Reason: Contraindicated)213 (Given - Provider: Franco Kerns, FLAVIA) 0916 (Given - Provider: Autumn Cotter, FLAVIA) Continuous Medication Order 02/15/2021 02/16/2021 02/17/2021 AMIOdarone (Cordarone) (1.8 mg/mL) in dextrose 5% 200 mL infusion (CANCELED)(Linked Group 2) 0.5-1 mg/min (16.8361-33.7588 mL/hr, rounded to 16.7-33.3 mL/hr), Intravenous, CONTINUOUS, [...] (New Bag - Provider: Luis Alberto Palafox, RN)1918 (New Bag - Provider: Luis Alberto Palafox, FLAVIA) 0807 (Stopped - Provider: Rachana Almonte RN) heparin (porcine) 50 units/mL in dextrose 5% [...] Routine 08 (Given - Provider: Luis Alberto Palafox RN) clonazePAM (KlonoPIN) tablet 1 mg 1 mg, Oral, 2 TIMES DAILY PRN, Starting on Fri02/14/21 at 2355, Until 02/17/21 at 1755, Anxiety, DO NOT SPLIT, CRUSH OR OPEN, Routine 116 (Given - Provider: Lashawn Foley RN)2124 (Given [...] Diarrhea, Do not exceed 16 mg/day., Routine 0937 (Given - Provider: Rachana Almonte RN) nitroGLYcerin [...] PROTOCOL, Starting on Fri02/14/21 at 2353, Until Candi 02/15/21 at 1052, Per Protocol, START ADJUSTMENT SCHEDULE [...] Routine documented in this encounter Care Teams Painter Chassis Relationship Specialty Start Date End Date Bin Bowman MD [address] [place] [id number] PCP - General General Internal Medicine 04/21/1707/11 documented as of this encounter
--- OUTSIDE RECORDS SUMMARY | 2024-07-21 11:28 | XMS_ITS | Encounter Summary ---
Author Organization [facility] [place] [address] Care Team Providers Care Leaflet Or Newspaper Deliverer Name Role Phone Bin Bowman MD Primary Care Provider Reason for Visit * Reason Comments Medication Refill Encounter Details Date Type Department Care Team (Late st Contact Info) Description 08/02/2021 Refill Cardiology at [address] [phone] Fadi Escobar MD [facility] [place] [address] Medication Refill Social History Tobacco Use Types [...] 10:[address] [place] [phone] Rachel Carrasco MD [facility] [place] [address] 09/21/2024 11:00 AM EST [place] [address] Rachel Carrasco MD [facility] [place] [address] documented as of this encounter Visit Diagnoses Diagnosis Flutter-fibrillation Other premature beats documented in this encounter Care Teams Leaflet Or Newspaper Deliverer Relationship Specialty Start Date End Date Bin Bowman MD [address] [place] [id number] PCP - General General Internal Medicine 04/21/1707/11 documented as of this encounter
--- OUTSIDE RECORDS SUMMARY | 2024-07-21 11:28 | XMS_ITS | Encounter Summary ---
Author Organization [facility] [place] [address] Care Team Providers Care Property Portfolio Officer Name Role Phone Bin Bowman MD Primary Care Provider Reason for Visit * Reason Onset Date Comments Medication Refill 02/12/2021 Encounter Details Date Type Department Care Team (Late st Contact Info) Description 02/12/2021 Refill Cardiology at [address] [phone] Mary Daley PA [facility] [place] [address] Medication Refill Social History Tobacco Use Types [...] 10:[address] [place] [place] [phone] Rachel Carrasco MD [facility] [place] [address] 09/21/2024 11:00 AM EST [place] [address] Rachel Carrasco MD [facility] [place] [address] documented as of this encounter Visit Diagnoses Not on filedocumented in this encounter Care Teams Property Portfolio Officer Relationship Specialty Start Date End Date Bin Bowman MD [address] [place] [phone] PCP - General General Internal Medicine 04/21/1707/11 documented as of this encounter
--- OUTSIDE RECORDS SUMMARY | 2024-07-21 11:28 | XMS_ITS | Encounter Summary ---
[place] [address] Care Team Providers Care Finished Stock Inspector Name Role Phone Bin Bowman MD Primary Care Provider [phone] Reason for Visit * Reason Onset Date Comments Follow-up 02/13/2021 Encounter Details Date Type Department Care Team (Late st Contact Info) Description 02/13/2021 Telephone Cardiology at [address] [phone] Lennie Garcia, RN Follow-up Social History Tobacco [...] Encounter - Lennie Garcia RN - 02/13/2021 3:36 PM EDTSummary: F/u Call TC to pt's Autumn r/t POC & f/u s/p ED visit at [facility] yesterday (02/12/21) Discussed situation with Dr. [...] will be made of sooner appt than 5/10 f/u with Dr. Escobar as well as potentially wearing heart monitor (Zio) Will await Dr. Escobar's determination & will contact pt once advisement provided. documented in this encounter Plan of Treatment Upcoming Encounters Date Type Department Care Team (Late st Contact Info) Description 09/21/2024 10:[address] [place] [place] [address] Rachel Carrasco MD [facility] [address] 09/21/2024 11:00 AM EST [place] [address] Rachel Carrasco MD [facility] [address] documented as of this encounter Visit Diagnoses Not on filedocumented in this encounter Care Teams Finished Stock Inspector Relationship Specialty Start Date End Date Bin Bowman MD [address] [place] [phone] PCP - General General Internal Medicine 04/21/1707/11 documented as of this encounter
--- OUTSIDE RECORDS SUMMARY | 2024-07-21 11:28 | XMS_ITS | Encounter Summary ---
[place] [address] Care Team Providers Care Cycle Counter Name Role Phone Bin Bowman MD Primary Care Provider Reason for Referral * Diagnostic Test (Routine) - Closed Specialty Diagnoses / Procedures Referred By Contac t Referred To Contact Cardiology Diagnoses PAF (paroxysmal atrial fibrillation) SVT (supraventricular tachycardia) Atrial flutter, unspecified type Procedures Ziopatch 48 Hrs-15 Days Fadi Escobar MD [facility] [place] [address] [facility] [place] [address] Referral ID Status Reason Start Date Expiration Date V isits Requested Visits Authorized [id number] Closed Specialty Service Requested 09/20/2021 12/21/2021 1 1 Encounter Details Date Type Department Care Team (Late st Contact Info) Description 08/29/2021 Orders Only Cardiology at [address] [phone] Fadi Escobar MD [facility] [place] [address] PAF (paroxysmal atrial fibrillation); SVT (supraventricular tachycardia); [...] 10:[address] [place] [place] [address] Rachel Carrasco MD [facility] [place] [address] 09/21/2024 11:00 AM EST [place] [address] Rachel Carrasco MD [facility] [place] [address] documented as of this encounter Results * Ziopatch 48 Hrs-15 Days (09/20/2021 7:00 AM EST) Anatomical Region Laterality Modality Other Narrative 10/24/2021 8:50 AM EST [facility] ? Zio Patch? Ambulatory Cardiac Event [...] type documented in this encounter Care Teams Cycle Counter Relationship Specialty Start Date End Date Bin Bowman MD [address] [place] [id number] PCP - General General Internal Medicine 04/21/1707/11 documented as of this encounter
--- OUTSIDE RECORDS SUMMARY | 2024-07-21 11:28 | XMS_ITS | Encounter Summary ---
Author Organization [place] [address] Care Team Providers Care Reach Lift Truck Driver Name Role Phone Bin Bowman MD Primary Care Provider Encounter Details Date Type Department Care Team (Late st Contact Info) Description 02/16/2021 10:35 AM EDT Anesthesia Event [place] [address] Ariella Shetty MD [facility] [place] [address] Ariella Shetty MD [facility] [place] [address] Anesthesia Record Procedure Summary Procedure Name Responsible [...] OR Notes * Anesthesia Preprocedure Evaluation - Diogenes Ariella Coronadoronnie Rodney - 02/15/2021 8:17 PM EDT Pre-Anesthesia Evaluation for: Rolo Aguilar a 50 y.o. male. Procedure(s): CARDIOVERSION-ELECTIVE (WRVU 2.25) Patient Active Problem List Diagnosis ??? Atrial flutter ??? Bipolar disorder ??? SVT (supraventricular tachycardia) Added automatically from request for surgery [id number] ??? PAF (paroxysmal atrial fibrillation) Added automatically from request for surgery [id number] ??? Flutter-fibrillation ??? H/O cardiac radiofrequency ablation ??? Coronary disease ?? 2017: STEMI. PCI of OM1. EF 60%. [facility] after this. ??? Heart palpitations ??? [...] Hewitt MD [facility] MAIN OR ??? PRO UNLISTED LAPAROSCOPIC PX LVR N/A 07/21/2018 LAPAROSCOPIC LIVER BIOPSY (WRVU 16.52) performed by Colt Hewitt MD at [facility] MAIN OR ??? PRO UPPER GI ENDOSCOPY, BIOPSY N/A 12/29/2017 UPPER GASTROINTESTINAL ENDOSCOPY,WITH BIOPSY SINGLE OR MULTIPLE (WRVU 2.49) performed by Yusuf Tucker MD at [facility] ENDOSCOPY ??? PRO UPPER GI ENDOSCOPY, DIAGNOSTIC N/A 12/29/2017 EGD, UPPER GI ENDOSCOPY performed by Yusuf Tucker MD at [facility] ENDOSCOPY ??? TONSILLECTOMY Social History Tobacco [...] on CPAP, HTN, CAD s/p stenting in 2016, GERD, anxiety, A flutter s/p 2 ablations [...] 10:[address] [place] [phone] Rachel Carrasco MD [facility] [place] [address] 09/21/2024 11:00 AM EST Office Visit Urology at [facility] [place] [phone] Rachel Carrasco MD [facility] [place] [address] documented as of this encounter Visit Diagnoses Not on filedocumented in this encounter Care Teams Reach Lift Truck Driver Relationship Specialty Start Date End Date Bin Bowman MD [address] [place] [id number] PCP - General General Internal Medicine 04/21/1707/11 documented as of this encounter
--- OUTSIDE RECORDS SUMMARY | 2024-07-21 11:28 | XMS_ITS | Encounter Summary ---
Author Organization [facility] [place] [address] Care Team Providers Care Resistance Brazer Name Role Phone Bin Bowman MD Primary Care Provider Encounter Details Date Type Department Care Team (Late st Contact Info) Description 06/01/2021 Orders Only Cardiology at [address] [phone] Fadi Escobar MD [facility] [place] [address] On amiodarone therapy Social History Tobacco Use [...] 10:[address] [place] [place] [phone] Rachel Carrasco MD [facility] [place] [address] 09/21/2024 11:00 AM EST [place] [phone] Rachel Carrasco MD [facility] [place] [address] documented as of this encounter Results * EKG 12 Lead (07/25/2021 8:34 AM EDT) Ventricular rate 62 BPM MUSE SYSTEM Atrial Rate 62 BPM MUSE SYSTEM P-R Interval 136 ms MUSE SYSTEM QRS Duration 100 ms MUSE SYSTEM Q-T Interval 448 ms MUSE SYSTEM QTC Calculated (Bezet) 454 ms MUSE SYSTEM Calculated P [place] 34 degrees MUSE SYSTEM Calculated R [place] 65 degrees MUSE SYSTEM Calculated T [place] 43 degrees MUSE SYSTEM INTERPRETATION Sinus rhythm [...] therapy documented in this encounter Care Teams Resistance Brazer Relationship Specialty Start Date End Date Bin Bowman MD [address] [place] [id number] PCP - General General Internal Medicine 04/21/1707/11 documented as of this encounter
--- OUTSIDE RECORDS SUMMARY | 2024-07-21 11:28 | XMS_ITS | Encounter Summary ---
Author Organization [facility] [address] Care Team Providers Care Home Health Aide Name Role Phone Bin Bowman MD Primary Care Provider Encounter Details Date Type Department Care Team (Late st Contact Info) Description 02/12/2021 External [place] [phone] Social History Tobacco Use Types Packs/Day Years [...] 10:[address] [place] [place] [phone] Rachel Carrasco MD [facility] [place] [address] 09/21/2024 11:00 AM EST [place] [address] Rachel Carrasco MD [facility] [place] [address] documented as of this encounter Procedures Procedure [...] on filedocumented in this encounter Care Teams Home Health Aide Relationship Specialty Start Date End Date Bin Bowman MD [address] [place] [phone] PCP - General General Internal Medicine 04/21/1707/11 documented as of this encounter
--- OUTSIDE RECORDS SUMMARY | 2024-07-21 11:28 | XMS_ITS | Encounter Summary ---
Author Organization [facility] [place] [address] Care Team Providers Care [employer] Name Role Phone Bin Bowman MD Primary Care Provider [phone] Encounter Details Date Type Department Care Team (Late st Contact Info) Description 02/14/2021 Telephone Cardiology at [address] [phone] Fadi Escobar MD [facility] [place] [address] Social History Tobacco Use Types Packs/Day Years [...] 10:[address] [place] [place] [phone] Rachel Carrasco MD [facility] [place] [address] 09/21/2024 11:00 AM EST [place] [address] Rachel Carrasco MD [facility] [place] [address] documented as of this encounter Visit Diagnoses Not on filedocumented in this encounter Care Teams [employer] Relationship Specialty Start Date End Date Bin Bowman MD [address] [place] [address] PCP - General General Internal Medicine 04/21/1707/11 documented as of this encounter
--- OUTSIDE RECORDS SUMMARY | 2024-07-21 11:28 | XMS_ITS | Encounter Summary ---
Author Organization [facility] [place] [address] Care Team Providers Care Solutions Delivery Consultant Name Role Phone Bin Bowman MD Primary Care Provider Reason for Referral * Diagnostic Test (Routine) - Closed Specialty Diagnoses / Procedures Referred By Contestuardo t Referred To Contact Cardiology Diagnoses PAF (paroxysmal atrial fibrillation) Procedures Ziopatch 48 Hrs-15 Days Fadi Escobar MD [facility] [place] [address] [facility] [place] [address] Referral ID Status Reason Start Date Expiration Date V isits Requested Visits Authorized [id number] Closed Specialty Service Requested 12/27/2021 12/27/2022 1 1 Encounter Details Date Type Department Care Team (Late st Contact Info) Description 12/10/2021 Orders Only Cardiology at [address] [address] Fadi Escobar MD [facility] [place] [address] PAF (paroxysmal atrial fibrillation) Social History Tobacco [...] 10:[address] [place] [address] Rachel Carrasco MD [facility] [place] [address] 09/21/2024 11:00 AM EST Office [place] [address] Rachel Carrasco MD [facility] [place] [address] documented as of this encounter Results * Ziopatch 48 Hrs-15 Days (07/02/2022 8:16 AM EDT) Anatomical Region Laterality Modality Other Narrative 07/26/2022 5:16 PM EDT [facility] ? Zio Patch? Ambulatory Cardiac Event [...] (Bezet) 412 ms MUSE SYSTEM Calculated P Coleman 29 degrees MUSE SYSTEM Calculated R Coleman 41 degrees MUSE SYSTEM Calculated T Coleman 27 degrees MUSE SYSTEM INTERPRETATION Normal sinus rhythm Normal ECG When compared with ECG of 25-JUL-2021 08:34, Premature atrial complexes are no longer Present Confirmed by MD Cheng, Jose ([id number]) on 06/24/2022 11:29:45 AM MUSE SYSTEM 06/24/2022 9:44 AM EDT 06/24/2022 11:29 AM EDT Fadi Escobar MD ECG ORDERABLES MUSE SYSTEM documented in this encounter Visit Diagnoses Diagnosis PAF (paroxysmal atrial fibrillation) Atrial fibrillation PAF (paroxysmal atrial fibrillation) Atrial fibrillation documented in this encounter Care Teams Solutions Delivery Consultant Relationship Specialty Start Date End Date Bin Bowman MD [address] [place] [address] PCP - General General Internal Medicine 04/21/1707/11 documented as of this encounter
--- OUTSIDE RECORDS SUMMARY | 2024-07-21 11:28 | XMS_ITS | Encounter Summary ---
Author Organization [facility] [place] [address] Care Team Providers Care Project Control Analyst Name Role Phone Bin Bowman MD Primary Care Provider [phone] Encounter Details Date Type Department Care Team (Late st Contact Info) Description 03/19/2021 3:20 PM EDT Office Visit Cardiology at [address] [address] Fadi Escobar MD [facility] [place] [address] Atrial arrhythmia; Atrial fibrillation with rapid ventricular [...] 03/19/2021 3:20 PM EDT Card[facility] Elect[facility] [place] Office March 19, 2021 [employer] Maintenance Worker: Jose Culver MD Primary Care: Bin Bowman MD Reason for Visit: S/p mapping and ablation of atrial fibrillation complicated by cardiac tamponade Backgound: 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 Per my recollection, after initial an [id number] cc of drainage, there was a trivial [...] follow up visit, having recently worn a Zio monitor. He reports having done much better [...] Coronary artery disease > [place] [facility] Non-STEMI (EMMY of OM1) > LVEF 55-60% [...] EC 40 mg daily ?? 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 Neurological: Grossly intact. Tests: Aptureo Monitor (February 22, 2021; analyzed 11 days [...] (on amiodarone therapy, s/p ablation 3months ago). Aptureo Monitor (August 02, 2020; analyzed 13 days [...] of ectopy were detected. Stress??Imaging??(March 14, 2019; [facility]):??Moderate size severely intense fixed inferolateraldefect. LVEF [...] inferior infarction. Electrocardiogram??(April 27, 2020):??Sinus rhythm 82/minute, SD 156 m, QRS duration 102 ms, QTc [...] and this is not intendedto be a intermission coordinator therapeutic plan)... monitoring for early signs of amiodarone toxicty remains important: > Renal/hepatic profile and TSH to be obtained in ~2-3 months > Annual ophthalmologic exam > Chest radiograph towards end of year (last image was February 14) > Some of this possibly can be obtained closer to home ([place], [place]) 4) Continue apixaban anticoagulation 5) Follow up ~July, sooner as needed - reconsider reduction amiodarone documented in this encounter Plan of Treatment Upcoming Encounters Date Type Department Care Team (Late st Contact Info) Description 09/21/2024 10:[address] [place] [address] Rachel Carrasco MD [facility] [place] [address] 09/21/2024 11:00 AM EST [place] [phone] Rachel Carrasco MD [facility] [place] [address] documented as of this encounter Visit Diagnoses Diagnosis Atrial arrhythmia Cardiac dysrhythmia, unspecified Atrial fibrillation with rapid ventricular response Atrial fibrillation documented in this encounter Care Teams Project Control Analyst Relationship Specialty Start Date End Date Bin Bowman MD [address] [address] PCP - General General Internal Medicine 04/21/1707/11 documented as of this encounter
--- OUTSIDE RECORDS SUMMARY | 2024-07-21 11:28 | XMS_ITS | Encounter Summary ---
Author Organization [facility] Address [facility] [place] [address] Care Team Providers Care Truck Trailer Mechanic Name Role Phone Bin Bowman MD Primary Care Provider Encounter Details Date Type Department Care Team (Late st Contact Info) Description 07/25/2021 8:20 AM EDT Office Visit Cardiology at [address] [address] Fadi Escobar MD [facility] [place] [address] On amiodarone therapy; Atrial arrhythmia Social History [...] 07/25/2021 8:20 AM EDT Cardiac Electrophysiology Clinic [place] Office July 25, 2021 Nut Sifter: Jose Culver MD Primary Care: Bin Bowman MD Reason for Visit: Follow up Backgound: Mr. Aguilar is a 50 year old gentleman who has had multiple symptomatic episodes of paroxysmal atrial tachycardia +/- fibrillation (AF), with numerous trips to the local emergency room in [facility] for some of those symptomatic episodes. He [...] reduced to 200 mg daily as of aarmx-sv-nki June. 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 Stress??Imaging??(March 14, 2019; [facility]):??Moderate size severely intense fixed inferolateraldefect. LVEF [...] inferior infarction. Electrocardiogram??(April 27, 2020):??Sinus rhythm 82/minute, CA 156 m, QRS duration 102 ms, QTc 416ms, old inferior infarction. Chest Radiograph (July 18, 2021): No indication of amiodarone toxicity. Blood Tests (July 19, 2021; [place], [place]): Heaptic enzymes normal (albumin and calcium [...] 10:[address] [place] [place] [address] Rachel Carrasco MD [facility] [place] [address] 09/21/2024 11:00 AM EST [place] [address] Rachel Carrasco MD [facility] [place] [address] documented as of this encounter Procedures Procedure [...] (Bezet) 454 ms MUSE SYSTEM Calculated P [place] 34 degrees MUSE SYSTEM Calculated R [place] 65 degrees MUSE SYSTEM Calculated T [place] 43 degrees MUSE SYSTEM INTERPRETATION Sinus rhythm [...] unspecified documented in this encounter Care Teams Truck Trailer Mechanic Relationship Specialty Start Date End Date Bin Bowman MD [address] [place] [address] PCP - General General Internal Medicine 04/21/1707/11 documented as of this encounter
--- OUTSIDE RECORDS SUMMARY | 2024-07-21 11:28 | XMS_ITS | Encounter Summary ---
Author Organization [facility] [place] [address] Care Team Providers Care Forest Logistics Manager Name Role Phone Bin Bowman MD Primary Care Provider Reason for Visit * Reason Onset Date Comments Medication Refill 05/31/2021 Encounter Details Date Type Department Care Team (Late st Contact Info) Description 05/31/2021 Refill [place] [address] Harini Jansen MD [facility] GENERAL [place] [address] Social History Tobacco Use Types Packs/Day Years [...] 10:[address] [place] [phone] Rachel Carrasco MD [facility] [place] [address] 09/21/2024 11:00 AM EST Office [place] [address] Rachel Carrasco MD [facility] [place] [address] documented as of this encounter Visit Diagnoses Not on filedocumented in this encounter Care Teams Forest Logistics Manager Relationship Specialty Start Date End Date Bin Bowman MD [address] [place] [address] PCP - General General Internal Medicine 04/21/1707/11 documented as of this encounter
--- OUTSIDE RECORDS SUMMARY | 2024-07-21 11:28 | XMS_ITS | Encounter Summary ---
Author Organization [facility] [place] [address] Care Team Providers Care Beef Grader Name Role Phone Bin Bowman MD Primary Care Provider Encounter Details Date Type Department Care Team (Late st Contact Info) Description 04/05/2021 Orders Only Cardiology at [address] [phone] Fadi Escobar MD [facility] [place] [address] On amiodarone therapy Social History Tobacco Use [...] 10:[address] [place] [phone] Rachel Carrasco MD [facility] [place] [address] 09/21/2024 11:00 AM EST [place] [address] Rachel Carrasco MD [facility] [place] [address] documented as of this encounter Visit Diagnoses Diagnosis On amiodarone therapy documented in this encounter Care Teams Beef Grader Relationship Specialty Start Date End Date Bin Bowman MD [address] [place] [address] PCP - General General Internal Medicine 04/21/1707/11 documented as of this encounter
--- OUTSIDE RECORDS SUMMARY | 2024-07-21 11:28 | XMS_ITS | Encounter Summary ---
Author Organization [facility] [place] [address] Care Team Providers Care Continuous Vulcanizing Machine Operator Name Role Phone Bin Bowman MD Primary Care Provider [phone] Reason for Visit * Reason Onset Date Comments Medication Refill 05/08/2021 Lipitor Encounter Details Date Type Department Care Team (Late st Contact Info) Description 05/08/2021 Refill Cardiology at [address] [phone] Mary Daley PA [facility] [place] [address] Medication Refill (Lipitor) Social History Tobacco Use [...] 10:[address] [place] [place] [address] Rachel Carrasco MD [facility] [place] [address] 09/21/2024 11:00 AM EST Office Visit Urology at [facility] [place] [address] Rachel Carrasco MD [facility] [place] [address] documented as of this encounter Visit Diagnoses Diagnosis Hyperlipidemia, unspecified hyperlipidemia type documented in this encounter Care Teams Continuous Vulcanizing Machine Operator Relationship Specialty Start Date End Date Bin Bowman MD [address] [place] [address] PCP - General General Internal Medicine 04/21/1707/11 documented as of this encounter
--- OUTSIDE RECORDS SUMMARY | 2024-07-21 11:28 | XMS_ITS | Encounter Summary ---
Author Organization [facility] Address [facility] [place] [address] Care Team Providers Care Wind Tunnel Mechanic Name Role Phone Bin Bowman MD Primary Care Provider Reason for Visit * Reason Comments Medication Refill Encounter Details Date Type Department Care Team (Late st Contact Info) Description 08/02/2021 Refill Cardiology at [address] [address] Mary Daley, SONNY [facility] [place] [address] Medication Refill Social History Tobacco Use Types [...] Miscellaneous Notes * Telephone Encounter - Anahy Paulino, RN - 08/02/2021 11:19 AM EDT YULISA: 07/25/[address] Escobar, note incomplete at this time. Ref. Range 2020 03:11 Chol, Total Latest Units: mg/dL 89 HDL Latest Units: mg/dL 35 Chol/HDL Ratio Latest Units: ratio 2.5 Triglycerides Latest Units: mg/dL 75 LDL Cholesterol Latest Units: mg/dL 39 Next f/u visit scheduled for: not scheduled yet Anahy Paulino [facility] [place] [phone] documented in this encounter Plan of Treatment Upcoming Encounters Date Type Department Care Team (Late st Contact Info) Description 09/21/2024 10:[address] Scan at [place] [address] Rachel Carrasco MD [facility] [place] [address] 09/21/2024 11:00 AM EST Office Visit Urology at [place] [address] Rachel Carrasco MD [facility] [place] [address] documented as of this encounter Visit Diagnoses Diagnosis Hyperlipidemia, unspecified hyperlipidemia type documented in this encounter Care Teams Wind Tunnel Mechanic Relationship Specialty Start Date End Date Bin Bowman MD [address] [place] [address] PCP - General General Internal Medicine 04/21/1707/11 documented as of this encounter
--- OUTSIDE RECORDS SUMMARY | 2024-07-21 11:28 | XMS_ITS | Encounter Summary ---
[place] [address] Care Team Providers Care Youth Pastor Name Role Phone Bin Bowman MD Primary Care Provider Reason for Referral * Diagnostic Test (Routine) - Closed Specialty Diagnoses / Procedures Referred By Contac t Referred To Contact Cardiology Diagnoses PAF (paroxysmal atrial fibrillation) Procedures Ziopatch 48 Hrs-15 Days Fadi Escobar MD [facility] [place] [address] [facility] [place] [address] Referral ID Status Reason Start Date Expiration Date V isits Requested Visits Authorized [id number] Closed Specialty Service Requested 02/19/2021 04/21/2021 1 1 Reason for Visit * Diagnostic Test (Routine) - Closed Specialty Diagnoses / Procedures Referred By Contac t Referred To Contact Cardiology Diagnoses PAF (paroxysmal atrial fibrillation) Procedures Ziopatch 48 Hrs-15 Days Fadi Escobar MD [facility] [place] [address] [facility] [place] [address] Referral ID Status Reason Start Date Expiration Date V isits Requested Visits Authorized [id number] Closed Specialty Service Requested 02/19/2021 04/21/2021 1 1 Encounter Details Date Type Department Care Team (Latest Contact Info) Description 02/19/2021 11:23 AM EDT - 02/19/2021 11:59 PM EDT Hospital Encounter Non-[place] [phone] Fadi Escobar MD [facility] [place] [address] PAF (paroxysmal atrial fibrillation) Discharge Disposition: Home [...] 10:[address] [place] [address] Rachel Carrasco MD [facility] [place] [address] 09/21/2024 11:00 AM EST [place] [phone] Rcahel Carrasco MD [facility] [place] [address] documented as of this encounter Procedures Procedure Name Priority Date/Time Associated Diagnosis Comments ZIOPATCH 48 HRS-15 DAYS Routine 02/19/2021 11:27 AM EDT PAF (paroxysmal atrial fibrillation) documented in this encounter Results * Ziopatch 48 Hrs-15 Days (02/19/2021 11:27 AM EDT) Anatomical Region Laterality Modality Other Narrative 03/21/2021 11:24 AM EDT [facility] ? Zio Patch Ambulatory Cardiac Event Monitor [...] fibrillation documented in this encounter Care Teams Youth Pastor Relationship Specialty Start Date End Date Bin Bowman MD [address] [place] [address] PCP - General General Internal Medicine 04/21/1707/11 documented as of this encounter
--- OUTSIDE RECORDS SUMMARY | 2024-07-21 11:28 | XMS_ITS | Encounter Summary ---
Author Organization [facility] Address [facility] [place] [address] Care Team Providers Care Haul Truck Driver Name Role Phone Bin Bowman MD Primary Care Provider Encounter Details Date Type Department Care Team (Late st Contact Info) Description 02/14/2021 Telephone Cardiology at [address] [address] Mahogany Hong PA [facility] [place] [address] Social History Tobacco Use Types Packs/Day Years [...] PM Referring Provider: Dr. Horne Patient Location: [facility] BED # 19 Past Medical History: Atrial Arrhythmias Presenting Symptoms per OSH: 50 Y O M from [place], who has a history of Atrial Arrhythmias was driven to the ER by his wifebecause he was feeling poorly. He was recently treated with amio and metop and [facility] and flipped back out and is [...] 10:[address] [place] [address] Rachel Carrasco MD [facility] [place] [address] 09/21/2024 11:00 AM EST [place] [address] Rachel Carrasco MD [facility] [place] [address] documented as of this encounter Visit Diagnoses Not on filedocumented in this encounter Care Teams Haul Truck Driver Relationship Specialty Start Date End Date Bin Bowman MD [address] [place] [address] PCP - General General Internal Medicine 04/21/1707/11 documented as of this encounter
--- OUTSIDE RECORDS SUMMARY | 2024-07-21 11:28 | XMS_ITS | Encounter Summary ---
[place] [address] Care Team Providers Care Shipping And Receiving Weigher Name Role Phone Bin Bowman MD Primary Care Provider [phone] Reason for Visit * Reason Onset Date Comments Follow-up 02/14/2021 Encounter Details Date Type Department Care Team (Late st Contact Info) Description 02/14/2021 Telephone Cardiology at [address] [phone] Lennie Garcia, RN Follow-up Social History Tobacco [...] discussion from yesterday (02/13) r/t to recent [facility] admission d/t AF. As a result amiodarone [...] recommended pt (if relatively stable) come to [facility] ED. Autumn & Bib were agreeable to this & Autumn will drive Bib to [facility] ED. documented in this encounter Plan of Treatment Upcoming Encounters Date Type Department Care Team (Late st Contact Info) Description 09/21/2024 10:[address] [place] [place] [address] Rachel Carrasco MD [facility] [place] [address] 09/21/2024 11:00 AM EST [place] [address] Rachel Carrasco MD [facility] [place] [address] documented as of this encounter Visit Diagnoses Not on filedocumented in this encounter Care Teams Shipping And Receiving Weigher Relationship Specialty Start Date End Date Bin Bowman MD [address] [place] [address] PCP - General General Internal Medicine 04/21/1707/11 documented as of this encounter
--- OUTSIDE RECORDS SUMMARY | 2024-07-21 11:28 | XMS_ITS | Encounter Summary ---
Author Organization [facility] Address [facility] [place] [address] Care Team Providers Care Advertising Writer Name Role Phone Bin Bowman MD Primary Care Provider [phone] Reason for Visit * Reason Comments Medication Refill Encounter Details Date Type Department Care Team (Late st Contact Info) Description 11/06/2021 Refill Cardiology at [address] [address] Fdai Escobar MD [facility] [address] Medication Refill Social History Tobacco Use Types [...] reduced to 200 mg daily as of qwoje-ix-hvf June. He reports having felt a total [...] prn F/U appt 12/05/2021 Dunia Canales DNP track welder Clinic at [place] [address] documented in this encounter Plan of Treatment Upcoming Encounters Date Type Department Care Team (Late st Contact Info) Description 09/21/2024 10:[address] [place] [place] [address] Rachel Carrasco MD [facility] [place] [address] 09/21/2024 11:00 AM EST Office Visit Urology at [place] [address] Rachel Carrasco MD [facility] [place] [address] documented as of this encounter Visit Diagnoses Diagnosis Atrial arrhythmia Cardiac dysrhythmia, unspecified documented in this encounter Care Teams Advertising Writer Relationship Specialty Start Date End Date Bin Bowman MD [address] [place] [address] PCP - General General Internal Medicine 04/21/1707/11 documented as of this encounter
--- OUTSIDE RECORDS SUMMARY | 2024-07-21 11:28 | XMS_ITS | Encounter Summary ---
Author Organization [facility] [place] [address] Care Team Providers Care Cobol Application Developer Name Role Phone Bin Bowman MD Primary Care Provider [phone] Reason for Visit * Reason Onset Date Comments Medication Refill 02/13/2021 Encounter Details Date Type Department Care Team (Late st Contact Info) Description 02/13/2021 Refill Cardiology at [address] [address] Fadi Escobar MD [facility] [place] [address] Medication Refill Social History Tobacco Use Types [...] composition of the generic amiodarone She contacted [facility] who can dispense brand name Pacerone if script is sent in. Sent script in to pharmacy, Autumn knows to contact us if they are in need of anything Will discuss POC w/ Dr. Escoabr documented in this encounter Plan of Treatment Upcoming Encounters Date Type Department Care Team (Late st Contact Info) Description 09/21/2024 10:[address] [place] [address] Rachel Carrasco MD [facility] [place] [address] 09/21/2024 11:00 AM EST Office [place] [address] Rachel Carrasco MD [facility] [place] [address] documented as of this encounter Visit Diagnoses Diagnosis Flutter-fibrillation Other premature beats documented in this encounter Care Teams Cobol Application Developer Relationship Specialty Start Date End Date Bin Bowman MD [address] [place] [address] PCP - General General Internal Medicine 04/21/1707/11 documented as of this encounter
--- OUTSIDE RECORDS SUMMARY | 2024-07-21 11:29 | XMS_ITS | Encounter Summary ---
[facility] Organization [facility] [place] [address] Care Team Providers Care Advertising Manager Name Role Phone Bin Bowman MD Primary Care Provider [phone] Reason for Visit * - Closed Specialty Diagnoses / Procedures Referred By Zeyad mishra Referred To Contact Procedures Film Library- Storage Only DX Chest Bin Bowman MD [address] [place] [address] Referral ID Status Reason Start Date Expiration Date Visits Re quested Visits Authorized [id number] Closed 01/31/2021 01/31/2022 1 1 Encounter Details Date Type Department Care Team (Late st Contact Info) Description 01/31/2021 1:50 PM EDT Ancillary Procedure [place] [address] Bin Bowman MD [address] [place] [address] Social History Tobacco Use Types Packs/Day Years [...] 10:[address] [place] [place] [phone] Rachel Carrasco MD [facility] [place] [address] 09/21/2024 11:00 AM EST [place] [phone] Rachel Carrasco MD [facility] [address] [address] documented as of this encounter Procedures Procedure Name Priority Date/Time Associated Diagnosis Comments FILM LIBRARY STORAGE ONLY DX CHEST Routine 01/31/2021 1:46 PM EDT documented in this encounter Results * Film Library- Storage Only DX Chest (01/31/2021 1:46 PM EDT) Narrative [facility] [place] - 01/31/2021 1:46 PM EDT This exam is auto-finalizing. It's purpose is for storage only. Bin Bowman MD IMG FILM LIBRARY ORD ERABLES [place], [place] documented in this encounter Visit Diagnoses Not on filedocumented in this encounter Care Teams Advertising Manager Relationship Specialty Start Date End Date Bin Bowman MD [address] [place] [id number] PCP - General General Internal Medicine 04/21/1707/11 documented as of this encounter
--- OUTSIDE RECORDS SUMMARY | 2024-07-21 11:29 | XMS_ITS | Encounter Summary ---
[place] [address] Care Team Providers Care Account Support Rep Name Role Phone Bin Bowman MD Primary Care Provider [phone] Reason for Visit * Reason Onset Date Comments Follow-up 02/02/2021 Encounter Details Date Type Department Care Team (Late st Contact Info) Description 02/02/2021 Telephone Cardiology at [address] [phone] Lennie Garcia, RN Follow-up Social History Tobacco [...] f/u CXR & echo from 01/31 at [facility] with Dr. Culver CXR from 01/31 [...] longer has chest discomfort) & will see JessicaDaley on 02/05 in f/u Per Dr. Escobar - recommended amiodarone 400 mg QD x 30 days then STOP. Autumn verbalized understanding & was agreeable to POC documented in this encounter Plan of Treatment Upcoming Encounters Date Type Department Care Team (Late st Contact Info) Description 09/21/2024 10:[address] [place] [place] [address] Rachel Carrasco MD [facility] [place] [place] [address] 09/21/2024 11:00 AM EST [place] [address] Rachel Carrasco MD [facility] [place] [address] documented as of this encounter Visit Diagnoses Not on filedocumented in this encounter Care Teams Account Support Rep Relationship Specialty Start Date End Date Bin Bowman MD [address] [place] [id number] PCP - General General Internal Medicine 04/21/1707/11 documented as of this encounter
--- OUTSIDE RECORDS SUMMARY | 2024-07-21 11:29 | XMS_ITS | Encounter Summary ---
Author Organization [facility] [place] [address] Care Team Providers Care Typesetting Machine Tender Name Role Phone Bin Bowman MD Primary Care Provider Encounter Details Date Type Department Care Team (Late st Contact Info) Description 01/23/2021 Orders Only Cardiology at [address] [phone] Chica Rm, RN PAF (paroxysmal [...] 10:[address] [place] [place] [address] Rachel Carrasco MD [facility] [place] [address] 09/21/2024 11:00 AM EST [place] [address] Rachel Carrasco MD [facility] [place] [address] documented as of this encounter Results * EKG 12 Lead (02/05/2021 2:45 PM EDT) Ventricular rate 64 BPM MUSE SYSTEM Atrial Rate 64 BPM MUSE SYSTEM P-R Interval 164 ms MUSE SYSTEM QRS Duration 100 ms MUSE SYSTEM Q-T Interval 418 ms MUSE SYSTEM QTC Calculated (Bezet) 431 ms MUSE SYSTEM Calculated P [place] 21 degrees MUSE SYSTEM Calculated R [place] 41 degrees MUSE SYSTEM Calculated T [place] 12 degrees MUSE SYSTEM INTERPRETATION Normal sinus [...] fibrillation documented in this encounter Care Teams Typesetting Machine Tender Relationship Specialty Start Date End Date Bin Bowman MD [address] [place] [id number] PCP - General General Internal Medicine 04/21/1707/11 documented as of this encounter
--- OUTSIDE RECORDS SUMMARY | 2024-07-21 11:29 | XMS_ITS | Encounter Summary ---
Author Organization [facility] [place] [address] Care Team Providers Care Revenue Agent Name Role Phone Bin Bowman MD Primary Care Provider Reason for Visit * Reason Onset Date Comments Medication Refill 02/02/2021 Encounter Details Date Type Department Care Team (Late st Contact Info) Description 02/02/2021 Refill Cardiology at [address] [phone] Fadi Escobar MD [facility] [place] [address] Medication Refill Social History Tobacco Use Types [...] 10:[address] [place] [place] [phone] Rachel Carrasco MD [facility] [place] [address] 09/21/2024 11:00 AM EST [place] [address] Rachel Carrasco MD [facility] [place] [address] documented as of this encounter Visit Diagnoses Diagnosis Flutter-fibrillation Other premature beats documented in this encounter Care Teams Revenue Agent Relationship Specialty Start Date End Date Bin Bowman MD [address] [place] [id number] PCP - General General Internal Medicine 04/21/1707/11 documented as of this encounter
--- OUTSIDE RECORDS SUMMARY | 2024-07-21 11:29 | XMS_ITS | Encounter Summary ---
[place] [address] Care Team Providers Care Global Account Director Name Role Phone Bin Bowman MD Primary Care Provider [phone] Reason for Visit * Reason Onset Date Comments Follow-up 01/16/2021 Encounter Details Date Type Department Care Team (Late st Contact Info) Description 01/16/2021 Telephone Cardiology at [address] [phone] Lennie Garcia, RN Follow-up Social History Tobacco [...] they do not want to travel to [facility] for echocardiogram 3) they have a retail equipment associate at their local hospital andwould like to have echo and follow up there. Pt's expresses that pt wishes to have testing done at Dr. Culver office at [facility] Cardiology Called Dr. Culver office, spoke w/ Yulia, RN who will convey message to Dr. Culver & who will set up testing (limited echo & CMP, LFT, Mag labs) Pt has f/u appt with EP on 02/05 and f/u with [facility] Cards on 02/[address] Wilkerson's note to [facility] Cardiology at [phone] documented in this encounter Plan of Treatment Upcoming Encounters Date Type Department Care Team (Late st Contact Info) Description 09/21/2024 10:[address] [place] [place] [address] Rachel Carrasco MD [facility] [place] [address] 09/21/2024 11:00 AM EST [place] [address] Rachel Carrasco MD [facility] [place] [address] documented as of this encounter Visit Diagnoses Not on filedocumented in this encounter Care Teams Global Account Director Relationship Specialty Start Date End Date Bin Bowman MD [address] [place] [id number] PCP - General General Internal Medicine 04/21/1707/11 documented as of this encounter
--- OUTSIDE RECORDS SUMMARY | 2024-07-21 11:29 | XMS_ITS | Encounter Summary ---
[place] [address] Care Team Providers Care Jacquard Loom Weaver Name Role Phone Bin Bowman MD Primary Care Provider [phone] Reason for Visit * Reason Onset Date Comments Post Procedure Call 01/17/2021 Encounter Details Date Type Department Care Team (Late st Contact Info) Description 01/17/2021 Telephone Cardiology at [address] [phone] Lennie Garcia, RN Post Procedure Call Social [...] to be done w/ Dr. Culver @ [facility] (01/22) 2) F/u w/ Mary Daley on 02/05 3) [facility] in early/mid February 4) F/u w/ Dr. Escobar in early March documented in this encounter Plan of Treatment Upcoming Encounters Date Type Department Care Team (Late st Contact Info) Description 09/21/2024 10:[address] [place] [address] Rachel Carrasco MD [facility] [place] [address] 09/21/2024 11:00 AM EST Office [place] [phone] Rachel Carrasco MD [facility] [place] [address] documented as of this encounter Visit Diagnoses Not on filedocumented in this encounter Care Teams Jacquard Loom Weaver Relationship Specialty Start Date End Date Bin Bowman MD [address] [place] [address] PCP - General General Internal Medicine 04/21/1707/11 documented as of this encounter
--- OUTSIDE RECORDS SUMMARY | 2024-07-21 11:29 | XMS_ITS | Encounter Summary ---
Author Organization [facility] [place] [address] Care Team Providers Care [employer] Supervisor Name Role Phone Bin Bowman MD Primary Care Provider Reason for Visit * Auth/Cert Specialty Diagnoses / Procedures Referred By Zeyad mishra Referred To Contact Diagnoses SVT (supraventricular tachycardia) [I47.1], PAF (paroxysmal atrial fibrillation) [I48.0] Procedures ELECTROPHYSIOLOGY PROCEDURE TRANSESOPHAGEAL ECHO DURING CATH/EP PROCEDURE Referral ID Status Reason Start Date Expiration Date Visits Re quested Visits Authorized [id number] 1 1 Encounter Details Date Type Department Care Team (Latest Contact Info) Description 01/10/2021 9:22 AM EST - 01/13/2021 3:37 PM [facility] Hospital Encounter [place] [phone] Fadi Escobar MD [facility] [place] [address] Rayo Bianchi MD [facility] [place] [address] Judy Tijerina MD [facility] [place] [address] Jose Anand MD [facility] [place] [address] SVT (supraventricular tachycardia); SVT (supraventricular tachycardia); PAF [...] 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 He was awakened from anesthesia, extubated [...] MV E-wave Vmax 0.94 m/sec MV deceleration rdyl859.49 msec MV A-wave Vmax 0.66 m/sec MV [...] Normal Mid-Posterolateral Normal Mid-Inferior Normal Mid-Inferoseptal Normal Glenwood-Septal Normal [place]-Anterior Normal [place]-Lateral Normal [place]-Inferior Normal [place]-Tip Normal TTE 01/12/21 1. A trivial pericardial [...] MV E-wave Vmax 0.52 m/sec MV deceleration prqi923.21 msec MV A-wave Vmax 0.41 m/sec MV [...] Normal Mid-Posterolateral Normal Mid-Inferior Normal Mid-Inferoseptal Normal [place]-Septal Normal [place]-Anterior Normal [place]-Lateral Normal [place]-Inferior Normal [place]-Tip Normal Pericardiocentesis 01/11/21 Conclusions: * Successful placement [...] 4:20 PM Jayne Rogel APRN Cardiology at [facility] Arrive at: [facility] [phone] 02/05/2021 2:15 PM Mary Daley PA Cardiology at [facility] Arrive at: [facility] [phone] General Instructions DISCHARGE INSTRUCTIONS FOLLOWING YOUR ABLATION [...] of any new medications [facility] at [facility]. The patient should be aware and [...] or the Cardiac Electrophysiology Service Triage Nurse ([phone], option 3). Patient Instructions Patient Instructions on [...] Center 01/17/2021 4:20 PM Jayne Rogel APRN [facility] CARD 4A [facility] 02/05/2021 2:15 PM Mary Daley PA [facility] CARD 4A [facility] PCP: Bin Bowman MD @ [phone] Rn Diabetes Educator: Will be assigned at the next cardiology appt Your Inpatient Medical Team at [facility] Name(s) of your inpatient provider(s): Jose Anand MD- Attending physician Thor Wills MD- Lump Inspector Harini Jansen MD-Resident Physician Chavo Dominguez MD- Visual Supervisor Physician Call your doctor if: Chest pain, shortness of breath, pain or swelling in legs occurs. If you have non-emergent questions between now and the time of your follow up appointments: During 8am-5pm Friday through Friday call [phone] to speak with a nurse in the cardiology clinic All other times call [phone] and ask to speak to the practicing dermatologist tombstone setter. For questions regarding this document or issues relating to this hospitalization on the Medical Service, please contact your inpatient physician through the [facility] Premium Auditor . Issues afterhours and on weekends will be handled by the Rn Diabetes Educator staff on-call. documented in this encounter Discharge [...] of any new medications [facility]. The patient should be aware and [...] or the Cardiac Electrophysiology Service Triage Nurse ([phone], option 3). * Patient Instructions* Harini Jansen [...] Center 01/17/2021 4:20 PM Jayne Rogel APRN [facility] CARD 4A [facility] 02/05/2021 2:15 PM Mary Daley PA [facility] 4A [facility] PCP: Bin Bowman MD @ [phone] Rn Diabetes Educator: Will be assigned at the next cardiology appt Your Inpatient Medical Team at [facility] Name(s) of your inpatient provider(s): Jose Anand MD- Attending physician Thor Wills MD- Lump Inspector Harini Jansen MD-Resident Physician Chavo Dominguez MD- Visual Supervisor Physician Call your doctor if: Chest pain, shortness of breath, pain or swelling in legs occurs. If you have non-emergent questions between now and the time of your follow up appointments: During 8am-5pm Friday through Friday call [phone] to speak with a nurse in the cardiology clinic All other times call [phone] and ask to speak to the practicing dermatologist tombstone setter. documented in this encounter Medications at Time [...] Physical Therapy: 20 NAYAN GUERRERO, PT Pager: [phone] Physical Therapy Inpatient Rehabilitation Department * Tess [...] IVs and tele removed. Pt brought to [facility] in wheelchair by staff with belongings. * [...] Jose Anand MD, MPH, RPVI, [facility] Pager [phone] Cardiovascular Technical Operations Vice PresidentPolice Patrol Officerquality [place] [address] * Mahogany Ferreira OT - 01/13/2021 12:16 PM EST Occupational Therapy Note 01/13/21 1214 OT Time and Intention Document Type contact Total Minutes, Occupational Therapy 0 Comment, Session Not Performed Order received. Chart reviewed. Spoke with both RN and PT. No acute OT needs. Pt mobilizing independently/supervised, and managing own ADLs. Will sign off. Mahogany Ferreira, OTR Pager [phone] * Nilsa Goldstein MD - 01/13/2021 10:45 AM EST Inpatient Cardiology Progress Note Patient Name: Rolo Aguilar Responsible Attending: Jose Anand MD EP Attending: Nilsa Goldstein MD Reason for continued hospitalization: Evaluation and management of pericardial effusion post ablation Active Problems: Active Hospital Problems Diagnosis ??? SVT (supraventricular tachycardia) Added automatically from request for surgery [id number] ??? PAF (paroxysmal atrial fibrillation) Added automatically from request for surgery [id number] ??? H/O cardiac radiofrequency ablation Resolved Hospital [...] HR: SR 70-100 with intermittent SVT/ atrial [id number] bpm. Meds: Scheduled Meds: ??? metoprolol tartrate [...] 1 month after Zio. Maria M Hercules, MATH AND SCIENCES DEPARTMENT CHAIR 01/13/2021 Pager: [phone] Addendum Stable, overall condition appears to have [...] Note: Added automatically from request for surgery [id number] ??? Bipolar disorder ??? PAF (paroxysmal atrial fibrillation) Overview Note: Added automatically from request for surgery [id number] ??? Flutter-fibrillation ??? H/O cardiac radiofrequency ablation ??? Coronary disease Overview Note: ?? 2017: STEMI. PCI of OM1. EF 60%. Many ER visits to [facility] after this. ??? Heart palpitations ??? [...] EKG - sinus rhythm rate 96 bpm. AK 154ms, QRS 94ms, QT 354 ms, QTc [...] Dr. Escobar for results. Maria M Hercules, MATH AND SCIENCES DEPARTMENT CHAIR 01/12/2021 Pager: [phone] Cardiac Electrophysiology Attending This patient was seen [...] 16.52) performed by Colt Hewitt MD at [facility] MAIN OR ??? PRO UPPER GI ENDOSCOPY, BIOPSY N/A 12/29/2017 UPPER GASTROINTESTINAL ENDOSCOPY,WITH BIOPSY SINGLE OR MULTIPLE (WRVU 2.49) performed by Yusuf Tucker MD at [facility] ENDOSCOPY ??? PRO UPPER GI ENDOSCOPY, DIAGNOSTIC N/A 12/29/2017 EGD, UPPER GI ENDOSCOPY performed by Yusuf Tucker MD at [facility] ENDOSCOPY ??? TONSILLECTOMY Active Non-Hospital Problems Diagnosis ??? Bipolar disorder ??? Flutter-fibrillation ??? Coronary disease ??? Heart palpitations ??? Obesity ??? Essential hypertension Social History: Pt resides with and mother in a house with 5 stairs to enter with L sided railing. Pt has a flt to basement where he resides with L sided railing. 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 Precautions/Special Considerations: Fall risk, lobato,chest [...] mobility recommendations discussed with nursing. Assessment: Rolo Aguilar was seen today for [...] Physical Therapy: 40 Macey Alarcon, PT Pager: [phone] Physical Therapy Inpatient Rehabilitation Department * Mark Anthony Barrera, OT - 01/12/2021 10:30 AM EST OT Contact note 01/12/21 1030 OT Time and Intention Document Type contact Total Minutes, Occupational Therapy 0 Comment, Session Not Performed Checked on pt this morning. RN reported he was in too much pain. Returned later and he was receiving an echo. Unable to return later. Will continue to follow. Mark Anthony Barrera OTR/L Pager: [phone] * Jose Anand MD - 01/12/2021 7:00 [...] Dr. Dominguez. Jose Anand MD, MPH, RPVI, [facility] Pager [phone] Cardiovascular Technical Operations Vice PresidentPolice Patrol Officerquality [place] [address] * Nayan William RN - 01/12/2021 6:15 AM EST Loss of arterial line overnight. notified. Line d/c'd by mikki Joyce held by this board writer. Non-invasive BP remains WNL. Pain and [...] that he had been found to havea zzlgg-yl-glhaakbq size pericardial effusion on echocardiogram during the [...] examined this patient and discussed with the biomedical engineering internship, resident, fellow. I have personally reviewed the echocardiogram (initial and repeat) and discussed with Fadi Escobar from EP. While no clear evidence of tamponade, we will tap and leave drain in for fluid. Hold anticoagulation fornow. Judy Tijerina MD, Robinson, [facility] Cardiology Attending ID: Rolo Aguilar is a [...] room. 01/11/2021: 0220: Verbal [facility] nurseJami. Plans for transport per protocol on monitor withnurse assist. 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 He was awakened from anesthesia, extubated [...] wall motion abnormalities present at [facility] inferolateral wall, as coded in the [...] tachycardia) Added automatically from request for surgery [id number] ??? Bipolar disorder ??? PAF (paroxysmal atrial fibrillation) Added automatically from request for surgery [id number] ??? Flutter-fibrillation ??? H/O cardiac radiofrequency ablation ??? Coronary disease ?? 2017: STEMI. PCI of OM1. EF 60%. Many ER visits to [facility] after this. ??? Heart palpitations ??? [...] Chemistry: Recent Labs 01/10/21215412/19/20 0502 12/18/20 0403 12/17/20 0311 07/10/20 0738 NA 138 138 137 141 140 K 4.3 4.2 3.9 3.6 4.7 CL 107 104 105 106 100 CO2 18* 27 25 25 32* BUN 15 -- -- 9* 13 CREATININE 0.89 -- -- 0.92 1.05 GLUCOSE 171 -- -- 110 -- Recent Labs 01/10/21215412/17/2031007/10/20 0738 CALCIUM 8.1* 9.1 10.0 MAGNESIUM 0.63* 0.84 -- PHOS -- 3.0 -- LFT's: Recent Labs 01/10/21215412/17/20 0311 BILITOT 0.5 0.5 BILIDIR 0.2 0.2 [...] PLAN: Admit to Cardiology, M1S1 Team Pager #[phone] #Post-Procedural Hypotension #Atrial Flutter s/p ablation #Hx [...] Diet - Code Status: Full - Dispo: [facility] Ernie Thrasher MD Internal Medicine PGY-2 I have seen and examined this patient and discussed with the biomedical engineering internship, resident, fellow. Judy Tijerina MD, Robinson, [facility] Cardiology Attending * Fadi Escobar MD - 01/10/2021 10:24 AM EST Interval History and Physical Exam: Planned Procedure [facility] CARDIAC ELECTROPHYSIOLOGY LABORATORIES HISTORY OF PRESENT ILLNESS: Rolo Aguilar is a 50 y.o. man old gentleman referred by??Jose Culver MD, for several recent manifestly symptomatic cardiac dysrhythmias. Mr. Aguilar had presented on April 27 to the Emergency Department in [facility] with [...] 16.52) performed by Colt Hewitt MD at [facility] MAIN OR ??? PRO UPPER GI ENDOSCOPY, BIOPSY N/A 12/29/2017 UPPER GASTROINTESTINAL ENDOSCOPY,WITH BIOPSY SINGLE OR MULTIPLE (WRVU 2.49) performed by Yusuf Tucker MD at [facility] ENDOSCOPY ??? PRO UPPER GI ENDOSCOPY, DIAGNOSTIC N/A 12/29/2017 EGD, UPPER GI ENDOSCOPY performed by Yusuf Tucker MD at [facility] ENDOSCOPY ??? TONSILLECTOMY Accessory Clinical Findings: [...] (PM before & AM of procedure) George Barr MD 01/10/21 10:24 AM Cardiac Electrophysiology Attending [...] Procedure Note: Patient Name: Rolo Aguilar : [id number] MR#: [id number] Case Date: 01/11/2021 Premium Auditor: Surgeon(s) and Role: * Erich Amato MD - Primary * Rachana Silver DO - Fellow Preoperative diagnosis: Pericardial drain placement Postoperative diagnosis: * Pre-tamponade * Procedure(s) performed: Pericardiocentesis Pericardial drain placement Access: Apical chest wall, just below the left breast; six arabic pigtail. A time-out was conducted prior to [...] spouse would be surrogate decision maker per [place] surrogate decision making law. (Only good for 90 days) Any patient receiving care at [facility] must abide by [place] law. The hierarchy for surrogate decision making [...] (i) The agent with financial power of prosecuting attorney or a conservator appointed in accordance with RSA 464-A. (j) The guardian of the patient???s estate. Current Functional Ability: Current Functional Status: Independent Functional Status Prior to Admission: Prior Functional Status: Independent Home Environment: People in Home: spouse. Living Arrangements: house. Current DME: None DME Needed at DC: None Home Address Listed as: [address] [place] [address] Social & Family Supports: Extended Emergency Contact Information Primary Emergency Contact: Autumn Aguilar Address: [address] [place] [address] [facility] Mobile Relation: Spouse Secondary Emergency Contact: Whitney Piedra Address: [address] [place] [address] [facility] Relation: Sibling Community Resources [...] N/A Prescription Coverage: yes Preferred Pharmacy: [id number] - [place], [place] - [address] [facility] [address] [facility] - [place], [place] - [address] [facility] [address] [facility] [address] [place] [place] [address] [facility] [address] [facility] [address] [id number] [place] [address] [facility] [address] [facility] [address] [facility] [address] [address] Primary Care Provider: Bin Bowman MD [phone] Patient/Caregiver Goals of Treatment: CO home Potential Needs for Transition of Care: [...] of care planning. Chanell Fatima, RN, MSN, java j2ee software engineer Office of Care Management Pager: [phone] Work * Brief Op Note - Fadi Escobar MD - 01/10/2021 7:27 PM EST Brief Operative Note Patient Name: Rolo Aguilar : [id number] MR#: [id number] Case Date: 01/10/2021 Surgeon: Surgeon(s) and Role: [...] were issues with initial functionality of the AutoVirtisiton system, the EP-4 stimulator, and the lateral [...] rate of 2500 units/hour. The short 8 Citizen [place] sheaths in the right femoral vein were [...] of 1110 milliseconds (ms) were as follows: AK: 180 ms (P wave duration 140 ms) QRS: 100 ms QT: 480 ms 2) Atrial overdrive pacing was accomplished from the proximal-most bipole in the coronary sinus (CS), and the atrioventricular (AV) Wenckebach block CL was observed at 410 ms. There was no pre-excitation or conduction aberrancy identified. 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 Left Atrial Anatomy and Mapping: A [employer] (Former[employer]) ThermoParkyaol SF 8 Fr ablation catheter with bidirectional [...] the [place] a [place] [address] Joules during minutes:seconds of actual ablation time, [...] (and/or limitations of familiarity) with the recently installedClIndependent Bank mapping system. Mitral Annular Flutter Induction, Mapping, [...] Dose: 681 mGy Total Radiofrequency Energy Delivered: 172637 Joules Total Actual Ablation Time: 50:31 m:s [...] revealed that he had developed a s wgvo-at-uedjkfph effusion with restricted filling (though not overt right atrial collapse). A pericardiocentesis subsequently was performed with a 300 cc of bloody fluid removed (please see separte report by Erich Amato MD), and the blood pressure reverted to baseline values; a 6 Citizen [place] pericardial drain was placed, but there was no significant fluid reaccumulation. documented in this encounter Plan of Treatment Upcoming Encounters Date Type Department Care Team (Late st Contact Info) Description 09/21/2024 10:[address] [place] [address] Rachel Carrasco MD [facility] [place] [address] 09/21/2024 11:00 AM EST [place] [address] Rachel Carrasco MD [facility] [place] [address] Pending Results Name Type Priority Associated Diagnoses [...] SHERWOOD M ?(Age): 1970(50y) Med Rec#: ? [id number] ?Sex: ?M ? Site Loc: ? [facility] ?Ht / Wt: ??168(cm)/198(kg) Pt. Loc: ?Adult Floor ? BSA: ?2.79 Study Date: ?? 01/13/2021 ?Pt. Type: Inpatient Tape: ? Referring: Jose Anand ??([id number]) Reading: Joss De Anda ([id number]) Solar Installation Crew Supervisor: Shahriar Juan RDCS, [place] Diagnosis: *Pericardial effusion [...] Vmax ?0.94 ? m/sec ? MV deceleration zmxt871.49 ? msec ? MV A-wave Vmax ?0.66 [...] ? Mid-Inferior ?Normal ? Mid-Inferoseptal ?Normal ? [place]-Septal ? Normal ? [place]-Anterior ? Normal ? [place]-Lateral ?Normal ? [place]-Inferior ? Normal ? [place]-Tip ?Normal ? This report has been electronically signed by: Joss De Anda MD ? 01/13/2021 11:37:34 Images reviewed and interpretation verified [facility] Cardiac Ultrasound Laboratory Procedure Note Joss De Anda MD - 01/13/2021 Procedure: Transthoracic Echocardiogram Patient: ISAAC Rodney (Age): 1970(50y) Med Rec#: [id number] Sex: M Site Loc: [facility] Ht / Wt: 168(cm)/198(kg) Pt. Loc: Adult Floor BSA: 2.79 Study Date: 01/13/2021 Pt. Type: Inpatient Tape: Referring: Jose Anand ([id number]) Reading: Joss De Anda ([id number]) Solar Installation Crew Supervisor: Shahriar Juan RDCS, [place] Diagnosis: *Pericardial effusion [...] MV E-wave Vmax 0.94 m/sec MV deceleration qcyo016.49 msec MV A-wave Vmax 0.66 m/sec MV [...] Normal Mid-Posterolateral Normal Mid-Inferior Normal Mid-Inferoseptal Normal [place]-Septal Normal [place]-Anterior Normal [place]-Lateral Normal [place]-Inferior Normal [place]-Tip Normal This report has been electronically signed by: Joss De Anda MD 01/13/2021 11:37:34 Images reviewed and interpretation verified [facility] Cardiac Ultrasound Laboratory Jose Anand MD ECHO ORDERABLES * EKG 12 Lead (01/13/2021 8:06 AM EST) Ventricular rate 141 BPM MUSE SYSTEM Atrial Rate 141 BPM MUSE SYSTEM P-R Interval 146 ms MUSE SYSTEM QRS Duration 94 ms MUSE SYSTEM Q-T Interval 266 ms MUSE SYSTEM QTC Calculated (Bezet) 407 ms MUSE SYSTEM Calculated P [place] 55 degrees MUSE SYSTEM Calculated R [place] 28 degrees MUSE SYSTEM Calculated T [place] 54 degrees MUSE SYSTEM INTERPRETATION Sinus tachycardia Low voltage QRS Possible Inferior infarct (cited on or before 13-JAN-2021) Abnormal ECG When compared with ECG of 12-JAN-2021 00:07, Diffuse ST-elevations have resolved, and there are now diffuse TWI, consistent with resolving pericarditis Confirmed by MD De Anda Daniel ([id number]) on 01/13/2021 12:29:23 PM MUSE SYSTEM 01/13/2021 8:06 AM EST 01/13/2021 12:29 PM EST Jose Anand MD ECG ORDERABLES MUSE SYSTEM * (ABNORMAL) Differential, Automated (01/13/2021 5:30 AM EST) Neutrophil % 71.0 % [facility] Neutrophil Absolute 8.18(H) 1.70 - 6.10 x10(3)/[facility] LAB[facility] Lymph % 16.6 % [facility] Lymphocytes Abs 1.9 0.9 - 3.2 x10(3)/[facility] LABOR[facility]ORY Monocyte % 10.7 % [facility] Monocyte Abs 1.2(H) 0.3 - 0.9 x10(3)/[facility] LABORATORY Eos % 0.5 % [facility] Eosinophils Abs 0.1 0.0 - 0.4 x10(3)/[facility] LABORATORY Basophil % 0.3 % [facility] Baso Absolute 0.0 0.0 - 0.1 x10(3)/[facility] LABORATORY Immature Gran % 0.90 % [facility] Comment: Immature granulocytes(IG's)percentage and absolute count will include metamyelocytes, myelocytes, and promyelocytes. Blood smears from CBCs yielding IG's will be scanned manually for concordance. If this scan disagrees with the automated IG or if promyelocytes are noted, a manual differential will be performed. Immature Gran Absolute 0.10(H) 0.00 - 0.04 x10(3)/[facility] LABOR[facility] Blood specimen (specimen) 01/13/2021 5:30 AM EST 01/13/2021 5:44 AM EST Narrative Resulting Agency Comment Spec In Lab Harini Jansen MD HEMATOLOGY ORDERABLE S [facility] [place] [address] * (ABNORMAL) Hemogram (01/13/2021 5:30 AM EST) White Blood Cell 11.5(H) 4.0 - 9.5 x10(3)/mc L [facility] Red Blood Cell 4.11(L) 4.58 - 5.54 x10(6)/ L [facility] Hemoglobin 11.4(L) 13.7 - 16.5 gm/dL [facility] Hematocrit 35.1(L) 40.5 - 48.5 % [facility] Mean Cell Volume 85.4 82.9 - 93.1 fL [facility] Mean Cell Hemoglobin 27.7 27.5 - 32.1 pg [facility] Mean Cell Hemoglobin Concentration 32.5 32.0 - 35.7 gm/dL [facility] Platelet 122(L) 145 - 357 x10(3)/[facility] LABORATORY RDW Standard Deviation 44.7 36.0 - 45.0 [facility] LABORATORY RDW coefficient of variation 14.6(H) 11.4 - 13.8 % [facility] Mean Platelet Volume 10.6 7.6 - 12.9 [facility] LABORATORY NRBC% auto 0.0 % [facility] NRBC Absolute 0.000 0.000 - 0.000 x10(3)/[facility] LABORATORY Blood specimen (specimen) 01/13/2021 5:30 AM EST 01/13/2021 5:44 AM EST Narrative Resulting Agency Comment Spec In Lab Harini Jansen MD HEMATOLOGY ORDERABLE S [facility] [place] [address] * Magnesium (01/13/2021 5:30 AM EST) Magnesium 0.92 0.69 - 1.07 mmol/L [facility] Blood specimen (specimen) 01/13/2021 5:30 AM EST 01/13/2021 5:45 AM EST Narrative Resulting Agency Comment Spec In Lab Jose Anand MD CHEMISTRY ORDERABLES [facility] [place] [address] * (ABNORMAL) BMP w/fasting Glucose (01/13/2021 5:30 AM EST) Glucose Fasting 92 65 - 99 mg/dL [facility] Comment: ?Fasting* Glucose Interpretive [...] of Diabetes Mellitus, Position Statement from the [place] [employer]. ??Diabetes Care, Volume 33, Supplement 1, Nov 2009 Blood Urea Nitrogen 14 10 - 20 mg/dL [facility] Creatinine 0.83 0.80 - 1.50 mg/dL [facility] [facility] Sodium 135 135 - 145 mmol/L [facility] Potassium 3.8 3.5 - 5.0 mmol/L [facility] Comment: result rechecked- Please note: ??Patients with WBC >100,000 may have falsely elevated Potassium levels. ??For accurate Potassium quantification in these patients send serum separator tube (gold top) for subsequent determinations. ??Contact the Clinical Chemistry Laboratory if there are any questions. Chloride 103 98 - 107 mmol/L [facility] Carbon Dioxide 22 22 - 31 mmol/L [facility] Anion Gap 10 5 - 15 mmol/L [facility] Calcium 8.2(L) 8.5 - 10.5 mg/dL [facility] Est Glomerular Filtration Rate 102 >=60 mL/min/1. 73 m?? [facility] Comment: This patient? s [...] Tijerina MD CHEMISTRY ORDERABLES Performing Organization Address City/State/[facility] Co de Phone Number [facility] [place] [address] * ECHO LMTD W/O CONTRAST W LMTD SPEC DOPP (01/12/2021 11:08 AM EST) EF 70 HEARTLAB SYSTEM Anatomical Region Laterality Modality Other 01/12/2021 Narrative 01/12/2021 11:42 AM EST Procedure: ?Transthoracic Echocardiogram Patient: ?ISAAC Rodney ?(Age): 1970(50y) Med Rec#: ? [id number] ?Sex: ?M ? [place] Loc: ? [facility] [place] ?Ht / Wt: ??168(cm)/198(kg) Pt. Loc: ?Adult Floor ? BSA: ?2.79 Study Date: ?? 01/12/2021 ?Pt. Type: Inpatient Tape: ? Referring: Thor Wills ([id number]) Referring: Judy Tijerina Reading: Roxana Mesa ([id number]) [employer] Supervisor: Willie Dugan [facility] [employer] Install[employer] Supervisor 2: Suzy Randolph Diagnosis: *Pericardial effusion (noninflammatory) [...] ? Mid-Inferior ?Normal ? Mid-Inferoseptal ?Normal ? [place]-Septal ? Normal ? [place]-Anterior ? Normal ? [place]-Lateral ?Normal ? [place]-Inferior ? Normal ? [place]-Tip ?Normal ? This report has been electronically signed by: Roxana Mesa MD ? 01/12/2021 11:42:18 Images reviewed and interpretation verified [facility] Cardiac Ultrasound Laboratory Procedure Note Roxana Mesa MD - 01/12/2021 Procedure: Transthoracic Echocardiogram Patient: ISAAC Rodney (Age): 1970(50y) Med Rec#: [id number] Sex: M [place] Loc: [facility] [place] Ht / Wt: 168(cm)/198(kg) Pt. Loc: Adult Floor BSA: 2.79 Study Date: 01/12/2021 Pt. Type: Inpatient Tape: Referring: Thor Wills ([id number]) Referring: Judy Tijerina Reading: Roxana Mesa ([id number]) [employer] Supervisor: Willie Dugan, [facility] [employer] Install[employer] Supervisor 2: Suzy Randolph Diagnosis: *Pericardial effusion (noninflammatory) [...] Normal Mid-Posterolateral Normal Mid-Inferior Normal Mid-Inferoseptal Normal [place]-Septal Normal [place]-Anterior Normal [place]-Lateral Normal [place]-Inferior Normal [place]-Tip Normal This report has been electronically signed by: Roxana Mesa MD 01/12/2021 11:42:18 Images reviewed and interpretation verified [facility] Cardiac Ultrasound Laboratory Judy Tijerina MD ECHO ORDERABLES * Scan, Peripheral Blood (01/12/2021 8:19 AM EST) Plat estimate Normal [facility] RBC Morphology Abnormal [facility] Ovalocytes 1-5 /HPF [facility] [place] Cells 1-5 /HPF [facility] Vacuolated Neut Present [facility] Blood specimen (specimen) 01/12/2021 8:19 AM EST 01/12/2021 8:36 AM EST Narrative Resulting Agency Comment Spec In Lab Harini Jansen MD HEMATOLOGY ORDERABLE S [facility] [place] [address] * (ABNORMAL) Differential, Automated (01/12/2021 8:19 AM EST) Neutrophil % 71.6 % [facility] Neutrophil Absolute 13.82(H) 1.70 - 6.10 x10(3)/mc L [facility] Lymph % 7.9 % [facility] Lymphocytes Abs 1.5 0.9 - 3.2 x10(3)/ L [facility] Monocyte % 8.4 % [facility] Monocyte Abs 1.6(H) 0.3 - 0.9 x10(3)/mc L [facility] Eos % 11.3 % [facility] Eosinophils Abs 2.2(H) 0.0 - 0.4 x10(3)/mc L [facility] Basophil % 0.2 % [facility] Baso Absolute 0.0 0.0 - 0.1 x10(3)/mc L [facility] Immature Gran % 0.60 % [facility] Comment: Immature granulocytes(IG's)percentage and absolute count will include metamyelocytes, myelocytes, and promyelocytes. Blood smears from CBCs yielding IG's will be scanned manually for concordance. If this scan disagrees with the automated IG or if promyelocytes are noted, a manual differential will be performed. Immature Gran Absolute 0.12(H) 0.00 - 0.04 x10(3)/mc L [facility] Blood specimen (specimen) 01/12/2021 8:19 AM EST 01/12/2021 8:36 AM EST Narrative Resulting Agency Comment Spec In Lab Harini Jansen MD HEMATOLOGY ORDERABLE S [facility] [place] [address] * (ABNORMAL) Hemogram (01/12/2021 8:19 AM EST) White Blood Cell 19.3(H) 4.0 - 9.5 x10(3)/mc L [facility] Red Blood Cell 4.48(L) 4.58 - 5.54 x10(6)/mc L [facility] Hemoglobin 12.5(L) 13.7 - 16.5 gm/dL [facility] Hematocrit 38.9(L) 40.5 - 48.5 % [facility] Mean Cell Volume 86.8 82.9 - 93.1 [facility] Mean Cell Hemoglobin 27.9 27.5 - 32.1 pg [facility] Mean Cell Hemoglobin Concentration 32.1 32.0 - 35.7 gm/dL [facility] Platelet 179 145 - 357 x10(3)/mc L [facility] RDW Standard Deviation 46.8(H) 36.0 - 45.0 [facility] RDW coefficient of variation 14.8(H) 11.4 - 13.8 % [facility] Mean Platelet Volume 9.9 7.6 - 12.9 [facility] NRBC% auto 0.0 % [facility] NRBC Absolute 0.000 0.000 - 0.000 x10(3)/ L [facility] Blood specimen (specimen) 01/12/2021 8:19 AM EST 01/12/2021 8:36 AM EST Narrative Resulting Agency Comment Spec In Lab Harini Jansen MD HEMATOLOGY ORDERABLE S [facility] [place] [address] * Magnesium (01/12/2021 3:55 AM EST) Magnesium 0.95 0.69 - 1.07 mmol/L [facility] Comment:result rechecked-peg Blood specimen (specimen) Venous Draw / Unknown 01/12/2021 3:55 AM EST 01/12/2021 4:03 AM EST Narrative Resulting Agency Comment Spec In Lab Harini Jansen MD CHEMISTRY ORDERABLES [facility] [place] [address] * (ABNORMAL) BMP w/fasting Glucose (01/12/2021 3:55 AM EST) Glucose Fasting 126(H) 65 - 99 mg/dL [facility] Comment: ?Fasting* Glucose Interpretive [...] of Diabetes Mellitus, Position Statement from the [place] [employer]. ??Diabetes Care, Volume 33, Supplement 1, Nov 2009 Blood Urea Nitrogen 18 10 - 20 mg/dL [facility] Creatinine 0.91 0.80 - 1.50 mg/dL [facility] Sodium 135 135 - 145 mmol/L [facility] Potassium 5.0 3.5 - 5.0 mmol/L [facility] Comment: Please note: ??Patients with WBC >100,000 may have falsely elevated Potassium levels. ??For accurate Potassium quantification in these patients send serum separator tube (gold top) for subsequent determinations. ??Contact the Clinical Chemistry Laboratory if there are any questions. Chloride 104 98 - 107 mmol/L [facility] Carbon Dioxide 22 22 - 31 mmol/L [facility] Anion Gap 9 5 - 15 mmol/L [facility] Calcium 8.2(L) 8.5 - 10.5 mg/dL [facility] Est Glomerular Filtration Rate 97 >=60 mL/min/1. 73 m?? [facility] Comment: This patient? s [...] In Lab Judy Tijerina MD CHEMISTRY ORDERABLES [facility] [place] [address] * EKG 12 Lead (01/12/2021 12:07 AM EST) Ventricular rate 96 BPM MUSE SYSTEM Atrial Rate 96 BPM MUSE SYSTEM P-R Interval 154 ms MUSE SYSTEM QRS Duration 94 ms MUSE SYSTEM Q-T Interval 354 ms MUSE SYSTEM QTC Calculated (Bezet) 447 ms MUSE SYSTEM Calculated P [place] 44 degrees MUSE SYSTEM Calculated R [place] 16 degrees MUSE SYSTEM Calculated T [place] 23 degrees MUSE SYSTEM INTERPRETATION Normal sinus rhythm Diffuse ST elevation, consider early repolarization, pericarditis, or injury Abnormal ECG When compared with ECG of 11-JAN-2021 06:29, Acute pericarditis is suspected. I personally reviewed the tracing and edited the fellows interpretation Confirmed by fellow Fernandez Higuera ([id number]) on 01/12/2021 9:35:13 AM Confirmed by Vini Chanel ([id number]) on 01/12/2021 5:29:51 PM MUSE SYSTEM 01/12/2021 12:0 7 AM EST 01/12/2021 5:29 PM EST Judy Tijerina MD ECG ORDERABLES MUSE SYSTEM * CARDIAC CATHETERIZATION (01/11/2021 2:33 PM EST) Anatomical Region Laterality Modality Other Narrative 01/11/2021 2:49 PM EST ?[facility] ? Cardiac Catheterization/Intervention Report ? Patient Name: Rolo Aguilar ? Procedure Date: 01/11/2021 ? A #: [id number] ? Primary Physician: Erich Amato ? Case #: [id number] ? File Name: [id number] ? Catheterization Order Number: [id number] ? [facility] ? Final Report [place], [place] ? Patient Name: ? Rolo Aguilar ? ID#: ?[id number] ? : ?1970 ? Procedure Date: ? [...] was designated as ASA Class IV. The CSHA clinical ?frailty scale is 6: Moderately Frail. [...] pericardiocentesis and ?transthoracic echo . ? Erich Amato, M.D. ? Electronically Signed by: Erich Amato, M.D. ? Report Finalized: 01/11/2021 ??14:44 ? Procedure Note Erich Amato MD - 01/11/2021 [facility] Cardiac Catheterization/Intervention Report Patient Name: Rolo Aguilar Procedure Date: 01/11/2021 A #: [id number] Primary Physician: Erich Amato Case #: [id number] File Name: [id number] Catheterization Order Number: [id number] [facility] FinalReport [place], [place] Patient Name: Rolo Aguilar ID#:[id number] :1970 Procedure Date: January 11, 2021 Case [...] * Lactate, whole blood, send to lab ([facility] [place]) (01/11/2021 1:10 PM EST) [facility] Signature Lactate WB 2.1 0.5 - 2.2 mmol/L [facility] Blood specimen (specimen) 01/11/2021 1:10 PM EST 01/11/2021 1:25 PM EST Narrative Resulting Agency Comment Spec In Lab Judy Tijerina MD CHEMISTRY ORDERABLES [facility] [place] [address] * ECHO COMPLETE W CONTRAST (01/11/2021 10:21 AM EST) EF 63 HEARTLAB SYSTEM Anatomical Region Laterality Modality Other 01/11/2021 Narrative 01/11/2021 11:10 AM EST Procedure: ?Transthoracic Echocardiogram Patient: ?ISAAC Rodney ?(Age): 1970(50y) Med Rec#: ? [id number] ?Sex: ?M ? [place] Loc: ? [facility] [place] ?Ht / Wt: ??167(cm)/185(kg) Pt. Loc: ?Adult Floor ? BSA: ?2.7 Study Date: ?? 01/11/2021 ?Pt. Type: Inpatient Tape: ? Referring: Rayo Bianchi ([id number]) Reading: Khurram Barillas ([id number]) [employer] Supervisor: Viola Moore [employer] Supervisor 2: Humza Wilson ([id number]) Interpreting Fellow: Humza Wilson ([id number]) Diagnosis: *Supraventricular tachycardia (I47.1) *1 vial Optison [...] Vmax ?0.52 ? m/sec ? MV deceleration kuvp078.21 ? msec ? MV A-wave Vmax ?0.41 [...] ? Mid-Inferior ?Normal ? Mid-Inferoseptal ?Normal ? [place]-Septal ? Normal ? [place]-Anterior ? Normal ? [place]-Lateral ?Normal ? [place]-Inferior ? Normal ? [place]-Tip ?Normal ? This report has been electronically signed by: Khurram Barillas MD ? 01/11/2021 11:04:46 Images reviewed and interpretation verified [facility] Cardiac Ultrasound Laboratory Procedure Note Khurram Barillas MD - 01/11/2021 Procedure: Transthoracic Echocardiogram Patient: ISAAC Rodney (Age): 1970(50y) Med Rec#: [id number] Sex: M [place] Loc: [facility] [place] Ht / Wt: 167(cm)/185(kg) Pt. Loc: Adult Floor BSA: 2.7 Study Date: 01/11/2021 Pt. Type: Inpatient Tape: Referring: Rayo Bianchi ([id number]) Reading: Khurram Barillas ([id number]) [employer] Supervisor: Viola Moore [employer] Supervisor 2: Humza Wilson ([id number]) Interpreting Fellow: Humza Wilson ([id number]) Diagnosis: *Supraventricular tachycardia (I47.1) *1 vial Optison [...] MV E-wave Vmax 0.52 m/sec MV deceleration quzm237.21 msec MV A-wave Vmax 0.41 m/sec MV [...] Normal Mid-Posterolateral Normal Mid-Inferior Normal Mid-Inferoseptal Normal [place]-Septal Normal [place]-Anterior Normal [place]-Lateral Normal [place]-Inferior Normal [place]-Tip Normal This report has been electronically signed by: Khurram Barillas MD 01/11/2021 11:04:46 Images reviewed and interpretation verified [facility] Cardiac Ultrasound Laboratory Rayo M Arias MD ECHO ORDERABLES * XR Chest One View (01/11/2021 10:18 AM EST) Anatomical Region Laterality Modality Chest N/A Digital Radiogra phy Impressions 01/11/2021 10:36 AM EST Hypoinflation with bibasilar atelectasis Thank you for letting us participate in the care of this patient. For questions regarding this report, please contact the number below. ? Electronically signed by: Tashia Hairston MD, [facility] ([phone]), at 01/11/2021 10:36 AM Narrative 01/11/2021 10:36 [...] number below. Electronically signed by: [facility]irston [facility]([phone]), at 01/11/2021 10:36 AM Rayo Bianchi MD IMG DX ORDERABLES * POCT Glucose (01/11/2021 7:45 AM EST) [facility] Glucose, POC 136 65 - 199 mg/dL [facility] Comment: Supplemental ranges: <140 mg/dL before meals <180 mg/dL all other times of the day Blood specimen (specimen) 01/11/2021 7:45 AM EST 01/11/2021 7:45 AM EST Judy Tijerina MD POINT OF CARE TEST O RDERABLES Performing Organization Address City/State/[facility] Co de Phone Number [facility] [place] [address] * (ABNORMAL) Differential, Automated (01/11/2021 7:40 AM EST) [facility] Neutrophil % 85.3 % [facility] Neutrophil Absolute 11.24(H) 1.70 - 6.10 x10(3)/mc L [facility] Lymph % 8.5 % [facility] Lymphocytes Abs 1.1 0.9 - 3.2 x10(3)/mc L [facility] Monocyte % 5.5 % [facility] Monocyte Abs 0.7 0.3 - 0.9 x10(3)/mc L [facility] Eos % 0.0 % [facility] Eosinophils Abs 0.0 0.0 - 0.4 x10(3)/mc L [facility] Basophil % 0.1 % [facility] Baso Absolute 0.0 0.0 - 0.1 x10(3)/mc L [facility] Immature Gran % 0.60 % [facility] Comment: Immature granulocytes(IG's)percentage and absolute count will include metamyelocytes, myelocytes, and promyelocytes. Blood smears from CBCs yielding IG's will be scanned manually for concordance. If this scan disagrees with the automated IG or if promyelocytes are noted, a manual differential will be performed. Immature Gran Absolute 0.08(H) 0.00 - 0.04 x10(3)/ L [facility] Blood specimen (specimen) 01/11/2021 7:40 AM EST 01/11/2021 7:58 AM EST Narrative Resulting Agency Comment Spec In Lab Harini Jansen MD HEMATOLOGY ORDERABLE S [facility] [place] [address] * (ABNORMAL) Hemogram (01/11/2021 7:40 AM EST) White Blood Cell 13.2(H) 4.0 - 9.5 x10(3)/ L [facility] Red Blood Cell 4.87 4.58 - 5.54 x10(6)/[facility] Hemoglobin 13.7 13.7 - 16.5 gm/dL [facility] Hematocrit 42.2 40.5 - 48.5 % [facility] Mean Cell Volume 86.7 82.9 - 93.1 fL [facility] Mean Cell Hemoglobin 28.1 27.5 - 32.1 pg [facility] Mean Cell Hemoglobin Concentration 32.5 32.0 - 35.7 gm/dL [facility] Platelet 224 145 - 357 x10(3)/ L [facility] RDW Standard Deviation 45.8(H) 36.0 - 45.0 [facility] RDW coefficient of variation 14.3(H) 11.4 - 13.8 % [facility] Mean Platelet Volume 10.7 7.6 - 12.9 [facility] NRBC% auto 0.0 % [facility] NRBC Absolute 0.000 0.000 - 0.000 x10(3)/ L [facility] Blood specimen (specimen) 01/11/2021 7:40 AM EST 01/11/2021 7:58 AM EST Narrative Resulting Agency Comment Spec In Lab Harini Jansen MD HEMATOLOGY ORDERABLE S [facility] [place] [address] * (ABNORMAL) BMP w/fasting Glucose (01/11/2021 7:40 AM EST) Glucose Fasting 155(H) 65 - 99 mg/dL [facility] Comment: ?Fasting* Glucose Interpretive [...] of Diabetes Mellitus, Position Statement from the [place] [employer]. ??Diabetes Care, Volume 33, Supplement 1, Nov 2009 Blood Urea Nitrogen 15 10 - 20 mg/dL [facility] Creatinine 0.86 0.80 - 1.50 mg/dL [facility] Sodium 134(L) 135 - 145 mmol/L [facility] Potassium 4.9 3.5 - 5.0 mmol/L [facility] Comment: Please note: ??Patients with WBC >100,000 may have falsely elevated Potassium levels. ??For accurate Potassium quantification in these patients send serum separator tube (gold top) for subsequent determinations. ??Contact the Clinical Chemistry Laboratory if there are any questions. Chloride 104 98 - 107 mmol/L [facility] Carbon Dioxide 19(L) 22 - 31 mmol/L [facility] Anion Gap 11 5 - 15 mmol/L [facility] Calcium 8.1(L) 8.5 - 10.5 mg/dL [facility] Est Glomerular Filtration Rate 100 >=60 mL/min/1. 73 m?? [facility] Comment: This patient? s [...] [facility]/ZIP Co de Phone Number [facility] [place] [address] * (ABNORMAL) Lactate, whole blood, send to lab ([facility] [place]) (01/11/2021 7:40 AM EST) Lactate WB 2.7(H) 0.5 - 2.2 mmol/L [facility] Blood specimen (specimen) 01/11/2021 7:40 AM EST 01/11/2021 8:00 AM EST Narrative Resulting Agency Comment Spec In Lab Judy Tijerina MD CHEMISTRY ORDERABLES [facility] [place] [address] * (ABNORMAL) Hepatic Function Panel (01/11/2021 6:40 AM EST) Protein, Total 5.9(L) 6.1 - 8.0 gm/dL [facility] Albumin 3.3 3.2 - 5.2 gm/dL [facility] Aspartate Aminotransferase 47(H) 0 - 39 unit/L [facility] Alanine Aminotransferase 40 0 - 55 unit/L [facility] Alkaline Phosphatase 47 40 - 130 unit/L [facility] Bilirubin, Total 0.4 0.2 - 1.3 mg/dL [facility] Bilirubin, Direct 0.1 0.0 - 0.3 mg/dL [facility] Blood specimen (specimen) Venous Draw / Unknown 01/11/2021 6:40 AM EST 01/11/2021 6:48 AM EST Narrative Resulting Agency Comment Spec In Lab Harini Jansen MD CHEMISTRY ORDERABLES Performing Organization Address City/State/[facility] Co de Phone Number [facility] [place] [address] * (ABNORMAL) Troponin (01/11/2021 6:40 AM EST) Troponin-T 1.06(H) 0.00 - 0.00 ng/mL [facility] Comment: The 99th percentile for Troponin T is less than 0.01 ng/mL, any detectable cTnT concentration using this assay should be considered elevated. According to the third universal definition of myocardial infarction the following criteria with a clinical presentation consistent with acute myocardial ischemia meets the diagnosis for a myocardial infarction (ND). Detection of a rise and/or fall of cTnT, with at least one value greater than the 99th percentile (> or = 0.01) and with at least one of the following ?? Symptoms of ischemia ?? New or presumed new significant TM-bnylxod-Z wave (ST-T) changes or new left bundle [...] additional sample may be indicated. Reference: Third [place] Arc Definition of Myocardial Infarction. Journal of the [place] College [employer] 2012;60:1581-98 Blood specimen (specimen) 01/11/2021 6:40 AM EST 01/11/2021 6:47 AM EST Narrative Resulting Agency Comment Spec In Lab Rayo Bianchi MD CHEMISTRY ORDERABLES Performing Organization Address City/[facility]/ZIP Co de Phone Number [facility] [place] [address] * EKG 12 Lead (01/11/2021 6:29 AM EST) Ventricular rate 101 BPM MUSE SYSTEM Atrial Rate 101 BPM MUSE SYSTEM P-R Interval 150 ms MUSE SYSTEM QRS Duration 88 ms MUSE SYSTEM Q-T Interval 360 ms MUSE SYSTEM QTC Calculated (Bezet) 466 ms MUSE SYSTEM Calculated P [place] 46 degrees MUSE SYSTEM Calculated R [place] 47 degrees MUSE SYSTEM Calculated T [place] 29 degrees MUSE SYSTEM INTERPRETATION Sinus tachycardia Low voltage QRS Borderline ECG When compared with ECG of 11-JAN-2021 01:59, (unconfirmed) No significant change was found Confirmed by MD Alecia, Ruperto Moya ([id number]) on 01/11/2021 5:10:03 PM MUSE SYSTEM 01/11/2021 6:29 AM EST 01/11/2021 5:10 PM EST Rayo Bianchi MD ECG ORDERABLES Performing Organization Address City/[facility]/ZIP Co de Phone Number MUSE SYSTEM * Blood culture (01/11/2021 4:51 AM EST) Blood Culture No growth at 5 days. [facility] Blood specimen (specimen) STRUCTURE OF RIGHT HAND / Unknown 01/11/2021 4:51 AM EST 01/11/2021 6:43 AM EST Comment:SET 2 Narrative Resulting Agency Comment Spec In Lab Fadi Escobar MD MICROBIOLOGY - BLOOD ORDERABLES [facility] [place] [address] * Blood culture (01/11/2021 4:30 AM EST) Blood Culture No growth at 5 days. [facility] Blood specimen (specimen) STRUCTURE OF RIGHT HAND / Unknown 01/11/2021 4:30 AM EST 01/11/2021 6:44 AM EST Narrative Resulting Agency Comment Spec In Lab Fadi Escobar MD MICROBIOLOGY - BLOOD ORDERABLES [facility] [place] [address] * XR Chest One View (01/11/2021 2:13 [...] signed by: Chavo Bartlett DO, [facility]([phone]), at 01/11/2021 7:50 AM Rayo Bianchi MD IMG DX ORDERABLES * (ABNORMAL) Lactate, whole blood, send to lab ([facility] [place]) (01/11/2021 2:05 AM EST) Lactate WB 3.5(H) 0.5 - 2.2 mmol/L [facility] Blood specimen (specimen) Venous Draw / Unknown 01/11/2021 2:05 AM EST 01/11/2021 2:14 AM EST Narrative Resulting Agency Comment Spec In Lab Ernie Thrasher MD CHEMISTRY ORDER BELEN Performing Organization Address [facility] Co de Phone Number [facility] [place] [address] * EKG 12 Lead (01/11/2021 1:59 AM EST) Ventricular rate 96 BPM MUSE SYSTEM Atrial Rate 96 BPM MUSE SYSTEM P-R Interval 148 ms MUSE SYSTEM QRS Duration 84 ms MUSE SYSTEM Q-T Interval 366 ms MUSE SYSTEM QTC Calculated (Bezet) 462 ms MUSE SYSTEM Calculated P [place] 52 degrees MUSE SYSTEM Calculated R [place] 60 degrees MUSE SYSTEM Calculated T [place] 19 degrees MUSE SYSTEM INTERPRETATION Normal sinus rhythm Baseline artifact Normal ECG When compared with ECG of 17-DEC-2020 02:40, Sinus rhythm has replaced Atrial fibrillation I personally reviewed the tracing and edited the fellows interpretation Confirmed by fellow Fernandez Higuera ([id number]) on 01/11/2021 10:24:41 AM Confirmed by Vini Chanel ([id number]) on 01/12/2021 5:28:31 PM MUSE SYSTEM 01/11/2021 1:59 AM EST 01/12/2021 5:28 PM EST Rayo Bianchi MD ECG ORDERABLES Performing Organization Address [facility] Co de Phone Number MUSE SYSTEM * (ABNORMAL) Differential, Automated (01/10/2021 9:55 PM EST) Neutrophil % 88.7 % [facility] Neutrophil Absolute 14.29(H) 1.70 - 6.10 x10(3)/mc L [facility] Lymph % 8.9 % [facility] Lymphocytes Abs 1.4 0.9 - 3.2 x10(3)/mc L [facility] Monocyte % 1.4 % [facility] Monocyte Abs 0.2(L) 0.3 - 0.9 x10(3)/ L [facility] Eos % 0.1 % [facility] Eosinophils Abs 0.0 0.0 - 0.4 x10(3)/[facility] Basophil % 0.3 % [facility] Baso Absolute 0.0 0.0 - 0.1 x10(3)/[facility] Immature Gran % 0.60 % [facility] Comment: Immature granulocytes(IG's)percentage and absolute count will include metamyelocytes, myelocytes, and promyelocytes. Blood smears from CBCs yielding IG's will be scanned manually for concordance. If this scan disagrees with the automated IG or if promyelocytes are noted, a manual differential will be performed. Immature Gran Absolute 0.09(H) 0.00 - 0.04 x10(3)/[facility] Blood specimen (specimen) 01/10/2021 9:55 PM EST 01/10/2021 10:01 PM EST Narrative Resulting Agency Comment Spec In Lab Ernie Thrasher MD HEMATOLOGY SCOOTER YOUNGBLOOD [facility] [place] [address] * (ABNORMAL) Hemogram (01/10/2021 9:55 PM EST) White Blood Cell 16.1(H) 4.0 - 9.5 x10(3)/ L [facility] Red Blood Cell 4.79 4.58 - 5.54 x10(6)/ L [facility] Hemoglobin 13.5(L) 13.7 - 16.5 gm/dL [facility] Hematocrit 41.1 40.5 - 48.5 % [facility] Mean Cell Volume 85.8 82.9 - 93.1 fL [facility] Mean Cell Hemoglobin 28.2 27.5 - 32.1 pg [facility] Mean Cell Hemoglobin Concentration 32.8 32.0 - 35.7 gm/dL [facility] Platelet 253 145 - 357 x10(3)/mc L [facility] RDW Standard Deviation 44.0 36.0 - 45.0 [facility] RDW coefficient of variation 14.2(H) 11.4 - 13.8 % [facility] Mean Platelet Volume 10.3 7.6 - 12.9 [facility] NRBC% auto 0.0 % [facility] NRBC Absolute 0.000 0.000 - 0.000 x10(3)/mc L [facility] Blood specimen (specimen) 01/10/2021 9:55 PM EST 01/10/2021 10:01 PM EST Narrative Resulting Agency Comment Spec In Lab Ernie Thrasher MD HEMATOLOGY SCOOTER YOUNGBLOOD Performing Organization Address [facility]/ZIP Co de Phone Number [facility] [place] [address] * (ABNORMAL) APTT (01/10/2021 9:55 PM EST) Partial Thromboplastin Time 66(H) 25 - 37 sec [facility] Comment: The PTT is NOT appropriate for heparin monitoring. Use the Anti-Xa level for heparin monitoring (HEP UFH) or LMWH monitoring (HEP LMW). A PTT less than 37 seconds generally indicates adequate hemostasis. Blood specimen (specimen) 01/10/2021 9:55 PM EST 01/10/2021 10:01 PM EST Narrative Resulting Agency Comment Spec In Lab Fadi Escobar MD HEMATOLOGY ORDERABLE S Performing Organization Address [facility]/ZIP Co de Phone Number [facility] [place] [address] * (ABNORMAL) Prothrombin Time (01/10/2021 9:55 PM EST) Prothrombin Time 15.6(H) 9.4 - 12.5 sec [facility] International Normalization Ratio 1.4 [facility] Comment: An INR <2.0 [...] MD HEMATOLOGY ORDERABLE S Performing Organization Address [facility] Co de Phone Number [facility] [place] [address] * (ABNORMAL) Hepatic Function Panel (01/10/2021 9:55 PM EST) Pathologist [facility] Protein, Total 6.1 6.1 - 8.0 gm/dL [facility] Albumin 3.3 3.2 - 5.2 gm/dL [facility] Aspartate Aminotransferase 46(H) 0 - 39 unit/L [facility] Alanine Aminotransferase 40 0 - 55 unit/L [facility] Alkaline Phosphatase 51 40 - 130 unit/L [facility] Bilirubin, Total 0.5 0.2 - 1.3 mg/dL [facility] Bilirubin, Direct 0.2 0.0 - 0.3 mg/dL [facility] Blood specimen (specimen) 01/10/2021 9:55 PM EST 01/10/2021 10:01 PM EST Narrative Resulting Agency Comment Spec In Lab Fadi Escobar MD CHEMISTRY ORDERABLES Performing Organization Address [facility] Co de Phone Number [facility] [place] [address] * (ABNORMAL) Magnesium (01/10/2021 9:55 PM EST) Magnesium 0.63(L) 0.69 - 1.07 mmol/L [facility] Blood specimen (specimen) 01/10/2021 9:55 PM EST 01/10/2021 10:01 PM EST Narrative Resulting Agency Comment Spec In Lab Fadi Escobar MD CHEMISTRY ORDERABLES [facility] [place] [address] * (ABNORMAL) Basic Metabolic Panel (non-fasting) (01/10/2021 9:55 PM EST) Glucose 171 65 - 199 mg/dL [facility] Comment:Diabetes: >=200 mg/d L plus symptoms Blood Urea Nitrogen 15 10 - 20 mg/dL [facility] Creatinine 0.89 0.80 - 1.50 mg/dL [facility] Sodium 138 135 - 145 mmol/L [facility] Potassium 4.3 3.5 - 5.0 mmol/L [facility] Comment: Please note: ??Patients with WBC >100,000 may have falsely elevated Potassium levels. ??For accurate Potassium quantification in these patients send serum separator tube (gold top) for subsequent determinations. ??Contact the Clinical Chemistry Laboratory if there are any questions. Chloride 107 98 - 107 mmol/L [facility] Carbon Dioxide 18(L) 22 - 31 mmol/L [facility] Anion Gap 13 5 - 15 mmol/L [facility] Calcium 8.1(L) 8.5 - 10.5 mg/dL [facility] Est Glomerular Filtration Rate 99 >=60 mL/min/1. 73 m?? [facility] Comment: This patient? s [...] In Lab Fadi Escobar MD CHEMISTRY ORDERABLES [facility] [place] [address] * ELECTROPHYSIOLOGY PROCEDURE (01/10/2021 6:28 PM EST) Anatomical Region Laterality Modality Other Narrative 01/22/2021 8:24 AM EDT Cardiac Electrophysiology Please refer to the operative note filed under the inpatient tab following the completion of this procedure. Fadi Escobar MD EP PROCEDURE ORDERAB LES * (ABNORMAL) Point of Care Blood Gas Historical (01/10/2021 4:20 PM EST) pH, POC 7.41 7.35 - 7.45 [facility] pCO2, POC 40 35 - 45 mmHg [facility] pO2, POC 149(H) 85 - 104 mmHg [facility] Base Excess, POC 0.0 -3.0 - 3.0 mmol/L [facility] Bicarbonate, POC 24.8 20.0 - 26.0 mmol/L [facility] Sodium, POC 139 135 - 145 mmol/L [facility] POC Potassium 3.9 3.5 - 5.0 mmol/L [facility] POC Hematocrit 42.0 40.0 - 51.0 % [facility] POC Calc Hgb 14.3 13.7 - 17.5 gm/dL [facility] Comment:The calculation of h emoglobin from hematocrit assumes a normal MCHC. POC Bgas Loc CC LAB [facility] Blood specimen (specimen) 01/10/2021 4:20 PM EST 01/11/2021 9:00 AM EST Jose Anand MD CHEMISTRY ORDERABLES [facility] [place] [address] * COVID-19 PCR (01/10/2021 12:32 PM EST) SARS-CoV-2 RNA (Rapid) Not Detected Not Detected [facility] Comment: This result should [...] using the Simplexa COVID-19 Direct Assay by [employer] as authorized by the FDA issued Emergency [...] Department of Pathology and Laboratory Medicine at [facility], certified under the Clinical Laboratory [...] fact sheets at the following FDA website: https://www.fda.gov/medical-devices/wiqjvuhfrbx-shforxb-6607-ipcjg-71-ntekxppwd- use-a bqjzsyiqavejr-ryhfwxi-xnosefg/naylo-qxqmtotjbti-vubp SARS-CoV-2 Source BUSINESS INTELLIGENCE ADMINISTRATOR Swab [facility] Nasopharyngeal swab (specimen) 01/10/2021 12:32 PM EST 01/10/2021 1:22 PM EST Comment:Symptoms->Surveillan ce Narrative Resulting Agency Comment Spec In Lab Fadi Escobar MD MICROBIOLOGY - GENER AL ORDERABLES [facility] [place] [phone] documented in this encounter Visit Diagnoses Diagnosis [...] 01/11/21 at 0030, Administer over 120 Minutes New [...] William, FLAVIA) 0620 (Given - Provider: Nayan William RN)1117 (Given - Provider: Tess Santiago RN) AMIOdarone (Cordarone; Pacerone) tablet 400 mg 400 mg, Oral, DAILY, First dose (after last modification) on Fri01/11/21 at 0900, Until Discontinued, Routine 0828 (Given - Provider: Tess Santiago RN)1341 (MAR [...] (after last modification) on Candi 01/11/21 at 2100, Until Discontinued, Routine 2105 (Given - Provider: Nayan William RN) 0840 (Given - Provider: Tess Santiago RN)1437 (Given - Provider: Tess Santiago RN)2059 (Given - Provider: Nayan William, FLAVIA) 0824 (Given - Provider: Tess Santiago RN)1449 (Given - Provider: Tess Santiago RN) atorvastatin (Lipitor) tablet 20 mg 20 mg, Oral, EVERY EVENING, First dose on Fri01/10/21 at 2345, Until Discontinued, Routine 0035 (Given - Provider: Citlali Flores RN)1341 (JAN Hold - Provider: Admin Adt - Reason: Transfer to a Procedural area)1446 (JAN Unhold - Provider: Admin Adt)1641 (Given - Provider: Gina Carmichael, RN) 1722 (Given - Provider: Tess Santiago [...] Routine 2106 (Given - Provider: Nayan William, FLAVIA) 0600 (Not Given - Provider: Nayan William, FLAVAI - Reason: See comment - Comment: hold [...] Tess Santiago RN)1038 (Stopped - Provider: Gina aCrmichael, FLAVIA) metoprolol tartrate (Lopressor) tablet 12.5 mg 12.5 mg, Oral, EVERY 6 HOURS SCHEDULED, First dose (after last modification) on 01/13/21 at 1800, Until Discontinued, Routine metoprolol tartrate (Lopressor) tablet 25 mg (CANCELED) 25 mg, Oral, EVERY 6 HOURS SCHEDULED, First dose on 01/13/21 at 0930, Until Discontinued, Routine 0911 (Given - Provider: Tess Santaigo RN) morphine (2 mg/mL) injection 1 mg [...] Gina Carmichael, FLAVIA)1222 (Restarted - Provider: Gina Carmichael RN)1341 (JAN [...] William RN)0400 (Rate/Dose Verify - Provider: Nayan William, FLAVIA)0600 (Rate/Dose Verify - Provider: Nayan William RN)1235 (New Bag - Provider: Tess Santiago RN)1500 (Rate/Dose Verify - Provider: Allia R Brown, RN)1534 (Rate/Dose Verify - Provider: Tess Santiago [...] William, FLAVIA) 0322 (Given - Provider: Nayan William RN) atropine (0.1 mg/mL) injection 1 mg 1 mg, Intravenous, Administer over 4 Hours, EVERY 5 MIN PRN, 2 doses, Starting on Candi 01/11/21 at 1946, Until 01/13/21 at 1737, Other, vasovagal episode, Call interventional , Cath (Recovery-Hospital Unit), Routine clonazePAM (KlonoPIN) tablet [...] William, FLAVIA)0521 (Given - Provider: Nayan William, FLAVIA)1014 (Given - Provider: Tess Santiago RN)210 (Given - Provider: Nayan William, FLAVIA) lidocaine (Xylocaine) 1% (10 mg/mL) injection 3 mg 3 mg (0.3 mL), Subcutaneous, ONCE PRN, 1 dose, Starting on Fri01/10/21 at 2123, Until 01/13/21 at 1737, for discomfort with PIV insertion, Recovery (Recovery-Hospital Unit), Routine lidocaine (Xylocaine) 1% (10 mg/mL) injection (CANCELED) ONCE PRN, Starting on Candi 3 at 1401, Until Candi 3 at 1433, [...] injection (CANCELED) ONCE PRN, Starting on Candi 3 at 1401, Until Candi 3 at 1433, [...] last 24 to 72 hours., Routine 1341 (MAR Hold - Provider: Admin [...] provided on this medication record., Routine 1341 ([facility] Hold - Provider: Admin Adt - Reason: [...] patch documented in this encounter Care Teams [employer] T[employer] Supervisor Relationship Specialty Start Date End Date Bin Bowman MD [address] [place] [id number] PCP - General General Internal Medicine 04/21/1707/11 documented as of this encounter
--- OUTSIDE RECORDS SUMMARY | 2024-07-21 11:29 | XMS_ITS | Encounter Summary ---
[place] [address] Care Team Providers Care Management Associate Name Role Phone Bin Bowman MD Primary Care Provider [phone] Reason for Visit * Reason Onset Date Comments Follow-up 01/31/2021 Encounter Details Date Type Department Care Team (Late st Contact Info) Description 01/31/2021 Telephone Cardiology at [address] [phone] Lennie Garcia, RN Follow-up Social History Tobacco [...] She will keep us updated & Rolo gasca for a f/u on 02/05 with Mary Daley documented in this encounter Plan of Treatment Upcoming Encounters Date Type Department Care Team (Late st Contact Info) Description 09/21/2024 10:[address] [place] [address] [facility] [place] [address] 09/21/2024 11:00 AM EST Office [place] [phone] Rachel Carrasco MD [facility] [place] [address] documented as of this encounter Visit Diagnoses Not on filedocumented in this encounter Care Teams Management Associate Relationship Specialty Start Date End Date Bin Bowman MD [address] [place] [id number] PCP - General General Internal Medicine 04/21/1707/11 documented as of this encounter
--- OUTSIDE RECORDS SUMMARY | 2024-07-21 11:29 | XMS_ITS | Encounter Summary ---
Author Organization [facility] [place] [address] Care Team Providers Care Music Video Producer Name Role Phone Bin Bowman MD Primary Care Provider Encounter Details Date Type Department Care Team (Latest Contact Info) Description 02/05/2021 1:30 PM EDT Laboratory Appointment Lab [address] [place] [phone] Essential hypertension; High risk medication [...] 10:[address] [place] [phone] Rachel Carrasco MD [facility] [place] [address] 09/21/2024 11:00 AM EST Office Visit Urology at [facility] [place] [address] Rachel Carrasco MD [facility] [place] [address] documented as of this encounter Procedures Procedure [...] 2:04 PM EDT) Neutrophil % 46.8 % [facility] Neutrophil Absolute 3.24 1.70 - 6.10 x10(3)/[facility] Lymph % 39.8 % [facility] Lymphocytes Abs 2.8 0.9 - 3.2 x10(3)/[facility] Monocyte % 8.7 % [facility] Monocyte Abs 0.6 0.3 - 0.9 x10(3)/[facility] Eos % 3.6 % [facility] Eosinophils Abs 0.2 0.0 - 0.4 x10(3)/[facility] Basophil % 0.7 % [facility] Baso Absolute 0.0 0.0 - 0.1 x10(3)/[facility] Immature Gran % 0.40 % [facility] Comment: Immature granulocytes(IG's)percentage and absolute count will include metamyelocytes, myelocytes, and promyelocytes. Blood smears from CBCs yielding IG's will be scanned manually for concordance. If this scan disagrees with the automated IG or if promyelocytes are noted, a manual differential will be performed. Immature Gran Absolute 0.03 0.00 - 0.04 x10(3)/[facility] Blood specimen (specimen) 02/05/2021 2:04 PM EDT 02/05/2021 2:15 PM EDT Narrative Resulting Agency Comment Spec In Lab Fadi Escobar MD HEMATOLOGY ORDERABLE S [facility] [place] [address] * (ABNORMAL) Hemogram (02/05/2021 2:04 PM EDT) White Blood Cell 6.9 4.0 - 9.5 x10(3)/[facility] Red Blood Cell 4.85 4.58 - 5.54 x10(6)/[facility] Hemoglobin 13.0(L) 13.7 - 16.5 gm/dL [facility] Hematocrit 40.7 40.5 - 48.5 % [facility] Mean Cell Volume 83.9 82.9 - 93.1 [facility] Mean Cell Hemoglobin 26.8(L) 27.5 - 32.1 pg [facility] Mean Cell Hemoglobin Concentration 31.9(L) 32.0 - 35.7 gm/dL [facility] Platelet 293 145 - 357 x10(3)/[facility] RDW Standard Deviation 41.8 36.0 - 45.0 [facility] RDW coefficient of variation 13.5 11.4 - 13.8 % [facility] Mean Platelet Volume 9.8 7.6 - 12.9 [facility] NRBC% auto 0.0 % [facility] NRBC Absolute 0.000 0.000 - 0.000 x10(3)/mc L [facility] Blood specimen (specimen) 02/05/2021 2:04 PM EDT 02/05/2021 2:15 PM EDT Narrative Resulting Agency Comment Spec In Lab Fadi Escobar MD HEMATOLOGY ORDERABLE S [facility] [place] [address] * (ABNORMAL) Basic Metabolic Panel (non-fasting) (02/05/2021 2:04 PM EDT) Glucose 115 65 - 199 mg/dL [facility] Comment:Diabetes: >=200 mg/d L plus symptoms Blood Urea Nitrogen 8(L) 10 - 20 mg/dL [facility] Creatinine 0.98 0.80 - 1.50 mg/dL [facility] Sodium 141 135 - 145 mmol/L [facility] Potassium 3.9 3.5 - 5.0 mmol/L [facility] Comment: Please note: ??Patients with WBC >100,000 may have falsely elevated Potassium levels. ??For accurate Potassium quantification in these patients send serum separator tube (gold top) for subsequent determinations. ??Contact the Clinical Chemistry Laboratory if there are any questions. Chloride 103 98 - 107 mmol/L [facility] Carbon Dioxide 28 22 - 31 mmol/L [facility] Anion Gap 10 5 - 15 mmol/L [facility] Calcium 9.6 8.5 - 10.5 mg/dL [facility] Est Glomerular Filtration Rate 89 >=60 mL/min/1. 73 m?? [facility] [...] Escobar MD CHEMISTRY ORDERABLES Performing Organization Address City/State/[facility] Co de Phone Number [facility] [place] [address] documented in this encounter Visit Diagnoses Diagnosis Essential hypertension Unspecified essential hypertension High risk medication use Encounter for long-term (current) use of other medications SVT (supraventricular tachycardia) Other specified cardiac dysrhythmias documented in this encounter Care Teams Music Video Producer Relationship Specialty Start Date End Date Bin Bowman MD [address] [place] [phone] PCP - General General Internal Medicine 04/21/1707/11 documented as of this encounter
--- OUTSIDE RECORDS SUMMARY | 2024-07-21 11:29 | XMS_ITS | Encounter Summary ---
Author Organization [facility] [place] [address] Care Team Providers Care Ambulatory Services Representative Name Role Phone Bin Bowman MD Primary Care Provider [phone] Reason for Referral * Diagnostic Test (Routine) - Closed Specialty Diagnoses / Procedures Referred By Contestuardo t Referred To Contact Cardiology Diagnoses PAF (paroxysmal atrial fibrillation) Procedures Ziopatch 48 Hrs-15 Days Fadi Escobar MD [facility] [place] [address] [facility] [place] [address] Referral ID Status Reason Start Date Expiration Date V isits Requested Visits Authorized [id number] Closed Specialty Service Requested 02/19/2021 04/21/2021 1 1 Encounter Details Date Type Department Care Team (Late st Contact Info) Description 01/17/2021 Orders Only Cardiology at [address] [phone] Fadi Escobar MD [facility] [place] [address] PAF (paroxysmal atrial fibrillation) Social History Tobacco [...] [place] [phone] Rachel Carrasco MD [facility] [place] [address] 09/21/2024 11:00 AM EST [place] [phone] Rachel Carrasco MD [facility] [place] [address] documented as of this encounter Results * Ziopatch 48 Hrs-15 Days (02/19/2021 11:27 AM EDT) Anatomical Region Laterality Modality Other Narrative 03/21/2021 11:24 AM EDT [facility] ? Zio Patch Ambulatory Cardiac Event [...] fibrillation documented in this encounter Care Teams Ambulatory Services Representative Relationship Specialty Start Date End Date Bin Bowman MD [address] [place] [id number] PCP - General General Internal Medicine 04/21/1707/11 documented as of this encounter
--- OUTSIDE RECORDS SUMMARY | 2024-07-21 11:29 | XMS_ITS | Encounter Summary ---
[place] [address] Care Team Providers Care Crop Pest Control Specialist Name Role Phone Bin Bowman MD Primary Care Provider Encounter Details Date Type Department Care Team (Late st Contact Info) Description 01/23/2021 Telephone Cardiology at [address] [phone] Anahy Paulino, RN Social History Tobacco Use [...] Telephone Encounter - Anahy Paulino, RN - 01/23/2021 3:28 PM EDT VM left from [facility] at [facility] Cardiology. She reports that the patient [...] receipt of echo results and that this typewriter assembly and parts inspector will report the findings to Dr. Escobar. Note emailed to Dr. Escobar for review. Anahy Paulino motor express clerk Clinic at [place] [address] documented in this encounter Plan of Treatment Upcoming Encounters Date Type Department Care Team (Late st Contact Info) Description 09/21/2024 10:[address] Scan at [place] [address] Rachel Carrasco MD [facility] [place] [address] 09/21/2024 11:00 AM EST Office Visit Urology at [place] [address] Rachel Carrasco MD [facility] [place] [address] documented as of this encounter Visit Diagnoses Not on filedocumented in this encounter Care Teams Crop Pest Control Specialist Relationship Specialty Start Date End Date Bin Bowman MD [address] [place] [phone] PCP - General General Internal Medicine 04/21/1707/11 documented as of this encounter
--- OUTSIDE RECORDS SUMMARY | 2024-07-21 11:29 | XMS_ITS | Encounter Summary ---
[place] [address] Care Team Providers Care Putty Worker Name Role Phone Bin Bowman MD Primary Care Provider [phone] Reason for Visit * Auth/Cert Specialty Diagnoses / Procedures Referred By Zeyad mishra Referred To Contact Diagnoses SVT (supraventricular tachycardia) [I47.1], PAF (paroxysmal atrial fibrillation) [I48.0] Procedures ELECTROPHYSIOLOGY PROCEDURE TRANSESOPHAGEAL ECHO DURING CATH/EP PROCEDURE Referral ID Status Reason Start Date Expiration Date Visits Re quested Visits Authorized [id number] 1 1 Encounter Details Date Type Department Care Team (Latest Contact Info) Description 01/13/2021 8:10 AM EST - 01/13/2021 11:59 PM EST Hospital Encounter Non-[place] [phone] Discharge Disposition: Home Social History Tobacco Use [...] 10:[address] [place] [address] Rachel Carrasco MD [facility] [place] [place] [address] 09/21/2024 11:00 AM EST [place] [address] Rachel Carrasco MD [facility] [place] [place] [address] documented as of this encounter Procedures Procedure Name Priority Date/Time Associated Diagnosis Comments ECHO COMPLETE Routine 01/13/2021 11:03 AM EST Pericardial effusion documented in this encounter Results * ECHO COMPLETE (01/13/2021 11:03 AM EST) Anatomical Region Laterality Modality Other 01/13/2021 Narrative 01/13/2021 11:38 AM EST Procedure: ?Transthoracic Echocardiogram Patient: ?ISAAC SHERWOOD M ?(Age): 1970(50y) Med Rec#: ? [id number] ?Sex: ?M ? Site Loc: ? [facility] ?Ht / Wt: ??168(cm)/198(kg) Pt. Loc: ?Adult Floor ? BSA: ?2.79 Study Date: ?? 01/13/2021 ?Pt. Type: Inpatient Tape: ? Referring: Jose Anand ??([id number]) Reading: Joss De Anda ([id number]) Footwear Factory Worker: Shahriar Juan RDCS, FASE Diagnosis: *Pericardial effusion [...] Vmax ?0.94 ? m/sec ? MV deceleration pnnr106.49 ? msec ? MV A-wave Vmax ?0.66 [...] ? Mid-Inferior ?Normal ? Mid-Inferoseptal ?Normal ? [place]-Septal ? Normal ? [place]-Anterior ? Normal ? [place]-Lateral ?Normal ? [place]-Inferior ? Normal ? [place]-Tip ?Normal ? This report has been electronically signed by: Joss De Anda MD ? 01/13/2021 11:37:34 Images reviewed and interpretation verified [facility] Cardiac Ultrasound Laboratory Procedure Note Joss De Anda MD - 01/13/2021 Procedure: Transthoracic Echocardiogram Patient: ISAAC Rodney (Age): 1970(50y) Med Rec#: [id number] Sex: M Site Loc: [facility] Ht / Wt: 168(cm)/198(kg) Pt. Loc: Adult Floor BSA: 2.79 Study Date: 01/13/2021 Pt. Type: Inpatient Tape: Referring: Jose Anand ([id number]) Reading: Joss De Anda ([id number]) Footwear Factory Worker: Shahriar Juan RDCS, [place] Diagnosis: *Pericardial effusion [...] MV E-wave Vmax 0.94 m/sec MV deceleration urch518.49 msec MV A-wave Vmax 0.66 m/sec MV [...] Normal Mid-Posterolateral Normal Mid-Inferior Normal Mid-Inferoseptal Normal [place]-Septal Normal [place]-Anterior Normal [place]-Lateral Normal [place]-Inferior Normal [place]-Tip Normal This report has been electronically signed by: Joss De Anad MD 01/13/2021 11:37:34 Images reviewed and interpretation verified [facility] Cardiac Ultrasound Laboratory Jose Anand MD ECHO ORDERABLES documented in this encounter Visit Diagnoses Not on filedocumented in this encounter Care Teams Putty Worker Relationship Specialty Start Date End Date Bin Bowman MD [address] [place] [id number] PCP - General General Internal Medicine 04/21/1707/11 documented as of this encounter
--- OUTSIDE RECORDS SUMMARY | 2024-07-21 11:29 | XMS_ITS | Encounter Summary ---
Author Organization [facility] [place] [address] Care Team Providers Care Valet Attendant Name Role Phone Bin Bowman MD Primary Care Provider [phone] Reason for Visit * - Closed Specialty Diagnoses / Procedures Referred By Zeyad mishra Referred To Contact Procedures Film Library- Storage Only DX Chest Bin Bowman MD [address] [place] [address] Referral ID Status Reason Start Date Expiration Date Visits Re quested Visits Authorized [id number] Closed 01/23/2021 01/23/2022 1 1 Encounter Details Date Type Department Care Team (Late st Contact Info) Description 01/23/2021 4:20 PM EDT Ancillary [place] [address] Bin Bowman MD [address] [place] [address] Social History Tobacco Use Types Packs/Day Years [...] AM [place] [address] Rachel Carrasco MD [facility] [place] [address] 09/21/2024 11:00 AM EST Office [place] [phone] Rachel Carrasco MD [facility] [place] [address] documented as of this encounter Procedures Procedure Name Priority Date/Time Associated Diagnosis Comments FILM LIBRARY STORAGE ONLY DX CHEST Routine 01/23/2021 4:17 PM EDT documented in this encounter Results * Film Library- Storage Only DX Chest (01/23/2021 4:17 PM EDT) Narrative [facility] - 01/23/2021 4:17 PM EDT This exam is auto-finalizing. It's purpose is for storage only. Bin Bowman MD IMG FILM LIBRARY ORD ERABLES [place], [place] documented in this encounter Visit Diagnoses Not on filedocumented in this encounter Care Teams Valet Attendant Relationship Specialty Start Date End Date Bin Bowman MD [address] [place] [address] PCP - General General Internal Medicine 04/21/1707/11 documented as of this encounter
--- OUTSIDE RECORDS SUMMARY | 2024-07-21 11:29 | XMS_ITS | Encounter Summary ---
Author Organization [facility] [place] [address] Care Team Providers Care Global Risk Management Director Name Role Phone Bin Bowman MD Primary Care Provider Encounter Details Date Type Department Care Team (Late st Contact Info) Description 01/23/2021 External Results [place] [address] None None Social History Tobacco [...] 10:[address] [place] [place] [address] Rachel Carrasco MD [facility] [place] [address] 09/21/2024 11:00 AM EST [place] [address] Rachel Carrasco MD [facility] [address] documented as of this encounter Procedures Procedure Name Priority Date/Time Associated Diagnosis Comments ECHO SCAN (SCAN) Routine 01/22/2021 documented in this encounter Results * Scan Doc: Echo (01/22/2021) Anatomical Region Laterality Modality Cardiac Other None MEDIA MGR SCAN EXT O RDR/RSLT documented in this encounter Visit Diagnoses Not on filedocumented in this encounter Care Teams Global Risk Management Director Relationship Specialty Start Date End Date Bin Bowman MD [address] [place] [address] PCP - General General Internal Medicine 04/21/1707/11 documented as of this encounter
--- OUTSIDE RECORDS SUMMARY | 2024-07-21 11:29 | XMS_ITS | Encounter Summary ---
Author Organization [facility] Address [facility] [place] [address] Care Team Providers Care Dietary Tech Name Role Phone Bin Bowman MD Primary Care Provider [phone] Encounter Details Date Type Department Care Team (Late st Contact Info) Description 01/15/2021 4:00 PM EST Office Visit Cardiology at [address] [place] [address] Judy Tijerina MD [facility] [place] [address] Flutter-fibrillation; SVT (supraventricular tachycardia); Coronary disease; Essential [...] 266 QTC Calculated (Bezet) 407 Calculated P [place] 55 Calculated R [place] 28 Calculated T [place] 54 INTERPRETATION Sinus tachycardia Low voltage QRS Possible Inferior infarct , age undetermined Abnormal ECG EKG 12 Lead Result Value Ventricular rate 141 Atrial Rate 141 P-R Interval 146 QRS Duration 94 Q-T Interval 266 QTC Calculated (Bezet) 407 Calculated P [place] 55 Calculated R [place] 28 Calculated T [place] 54 INTERPRETATION Sinus tachycardia Low voltage QRS Possible Inferior infarct (cited on or before 13-JAN-2021) Abnormal ECG When compared with ECG of 12-JAN-2021 00:07, Diffuse ST-elevations have resolved, and there are now diffuse TWI, consistent with resolving pericarditis Confirmed by MD De Anda Daniel ([id number]) on 01/13/2021 12:29:23 PM Assessment and Plan: [...] they do not want to travel to [facility] for echocardiogram 3) they have a docking pilot at their local hospital and would like to have echo and follow up there. I have given them copy of today's EKG and discharge summary and asked that they have all records (including this note) sent to their docking pilot, Dr. Culver. They have follow up with the Electrophysiology team here and agreed to keep these appointments. This appointment was 50 minutes long and > 50% of the time was spent counseling, and coordination of care. Time spent for this clinic appointment on the date of service includes: 1) [id number] counseling as noted above 2) reviewing past medical records, cardiac testing, results of laboratory testing 3) coordinating care with other physicians and allied health care providers Judy Tijerina MD, Robinson, FACC, FNLA Attending [facility] Preventive Cardiology Lipid [facility] Advanced Hypertension [facility] documented in this encounter Plan of Treatment Upcoming Encounters Date Type Department Care Team (Late st Contact Info) Description 09/21/2024 10:[address] [place] [address] Rachel Carrasco MD [facility] [place] [address] 09/21/2024 11:00 AM EST [place] [address] Rachel Carrasco MD [facility] [place] [address] documented as of this encounter Procedures Procedure [...] (Bezet) 432 ms MUSE SYSTEM Calculated P [place] 10 degrees MUSE SYSTEM Calculated R [place] 32 degrees MUSE SYSTEM Calculated T [place] 36 degrees MUSE SYSTEM INTERPRETATION Normal sinus [...] hypertension documented in this encounter Care Teams Dietary Tech Relationship Specialty Start Date End Date Bin Bowman MD [address] [place] [address] PCP - General General Internal Medicine 04/21/1707/11 documented as of this encounter
--- OUTSIDE RECORDS SUMMARY | 2024-07-21 11:29 | XMS_ITS | Encounter Summary ---
Author Organization [facility] [place] Address [facility] [place] [address] Care Team Providers Care Beekeeper Name Role Phone Bin Bowman MD Primary Care Provider [phone] Encounter Details Date Type Department Care Team (Late st Contact Info) Description 02/05/2021 2:15 PM EDT Office Visit Cardiology at [address] [address] Mary Daley PA [facility] [place] [address] PAF (paroxysmal atrial fibrillation) Social History Tobacco [...] requiring pressor support in setting of acute [id number]-kiwsnmkl pericardial effusion for which a pericardiocentesis was [...] Note: Added automatically from request for surgery [id number] ??? PAF (paroxysmal atrial fibrillation) Overview Note: Added automatically from request for surgery [id number] ??? Flutter-fibrillation ??? H/O cardiac radiofrequency ablation ??? Coronary disease Overview Note: ?? 2017: STEMI. PCI of OM1. EF 60%. Many ER visits to [facility] after this. ??? Heart palpitations ??? Obesity [...] in office today shows SR at 64bpm, OH of 164ms, QRS of 100ms, QT 418ms, QTc is 431ms. Inferior Q waves. Assessment and Plan: 50 y.o. male male with a history of atrial flutter s/p CTI ablation in July 2020, atrial fibrillation s/p PVI and posterior LA wall isolation on 01/10/21 complicated by pericardial effusion and subsequent pleural effusions, anticoagulated with Eliquis, ASCVD (s/p NSTEMI, EMYM to OM1 in 07/2017), HTN, sleep apnea, [...] He is experiencing some diarrhea with colchicine, eyqjglqnjfiovayi-qpalq-hwn dosing if diarrhea continues. Communicated Dr. Escobar's [...] contact EP with any further questions (pager [phone]). SONNY Grover 4:04 PM 02/05/21 documented in this encounter Plan of Treatment Upcoming Encounters Date Type Department Care Team (Late st Contact Info) Description 09/21/2024 10:[address] [place] [place] [address] Rachel Carrasco MD [facility] [place] [address] 09/21/2024 11:00 AM EST [place] [address] Rachel Carrasco MD [facility] [place] [place] [address] documented as of this encounter Procedures Procedure [...] (Bezet) 431 ms MUSE SYSTEM Calculated P Check 21 degrees MUSE SYSTEM Calculated R Check 41 degrees MUSE SYSTEM Calculated T Check 12 degrees MUSE SYSTEM INTERPRETATION Normal sinus [...] fibrillation documented in this encounter Care Teams Beekeeper Relationship Specialty Start Date End Date Bin Bowman MD [address] [place] [id number] PCP - General General Internal Medicine 04/21/1707/11 documented as of this encounter
--- OUTSIDE RECORDS SUMMARY | 2024-07-21 11:29 | XMS_ITS | Encounter Summary ---
[place] [address] Care Team Providers Care Broadcaster Name Role Phone Bin Bowman MD Primary Care Provider [phone] Encounter Details Date Type Department Care Team (Late st Contact Info) Description 01/24/2021 Telephone Cardiology at [address] [phone] Lennie Garcia, RN Social History Tobacco Use [...] Telephone Encounter - Lennie Garcia, RN - 01/24/2021 3:28 PM EDT TC to pt & as f/u to results of echo & CXR (new bilat pleural effusions) per [facility] (+) SOB w/ exertion, rattles w/ use [...] 10:[address] [place] [place] [address] Rachel Carrasco MD [facility] [place] [address] 09/21/2024 11:00 AM EST [place] [address] Rachel Carrasco MD [facility] [place] [address] documented as of this encounter Results * (ABNORMAL) Basic Metabolic Panel (non-fasting) (02/05/2021 2:04 PM EDT) [facility] Signature Glucose 115 65 - 199 mg/dL [facility] Comment:Diabetes: >=200 mg/d L plus symptoms Blood Urea Nitrogen 8(L) 10 - 20 mg/dL [facility] Creatinine 0.98 0.80 - 1.50 mg/dL [facility] Sodium 141 135 - 145 mmol/L [facility] [...] questions. Chloride 103 98 - 107 mmol/L [facility] Carbon Dioxide 28 22 - 31 mmol/L [facility] Anion Gap 10 5 - 15 mmol/L [facility] Calcium 9.6 8.5 - 10.5 mg/dL [facility] Est Glomerular Filtration Rate 89 >=60 mL/min/1. 73 m?? [facility] [...] MD CHEMISTRY ORDERABLES [facility] [place] [address] documented in this encounter Visit Diagnoses Diagnosis Essential hypertension Unspecified essential hypertension High risk medication use Encounter for long-term (current) use of other medications documented in this encounter Care Teams Broadcaster Relationship Specialty Start Date End Date Bin Bowman MD [address] [place] [address] PCP - General General Internal Medicine 04/21/1707/11 documented as of this encounter
--- OUTSIDE RECORDS SUMMARY | 2024-07-21 11:30 | XMS_ITS | Encounter Summary ---
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 Understands that they will need road train driver on day of discharge Notified pt that Shanks catheter may be placed on day of procedure depending on type & duration of case. documented in this encounter Plan of Treatment Upcoming Encounters Date Type Department Care Team (Late st Contact Info) Description 09/21/2024 10:[address] [place] [address] Rachel Carrasco MD [facility] [place] [address] 09/21/2024 11:00 AM EST Office [place] [address] Rachel Carrasco MD [facility] [place] [address] documented as of this encounter Visit Diagnoses Not on filedocumented in this encounter Care Teams System Planning Engineer Relationship Specialty Start Date End Date Bin Bowman MD [address] [place] [id number] PCP - General General Internal Medicine 04/21/1707/11 documented as of this encounter
--- OUTSIDE RECORDS SUMMARY | 2024-07-21 11:30 | XMS_ITS | Encounter Summary ---
Author Organization [facility] [place] [address] Care Team Providers Care Summer Nanny Name Role Phone Bin Bowman MD Primary Care Provider [phone] Reason for Visit * Auth/Cert Specialty Diagnoses / Procedures Referred By Zeyad mishra Referred To Contact Diagnoses SVT (supraventricular tachycardia) [I47.1], PAF (paroxysmal atrial fibrillation) [I48.0] Procedures ELECTROPHYSIOLOGY PROCEDURE TRANSESOPHAGEAL ECHO DURING CATH/EP PROCEDURE Referral ID Status Reason Start Date Expiration Date Visits Re quested Visits Authorized [id number] 1 1 Encounter Details Date Type Department Care Team (Late st Contact Info) Description 01/10/2021 10:30 AM EST - 01/10/2021 5:25 PM EST Surgery [place] [address] Fadi Escobar MD [facility] [place] [address] ELECTROPHYSIOLOGY PROCEDURE Social History Tobacco Use Types [...] a total of 1.6 LR in the laboratory technician. He was awakened from anesthesia, [...] 0.5 BILIDIR 0.1 0.2 Recent Labs 01/10/21 215 INR 1.4 Lab Results Component Value Date [...] MV E-wave Vmax 0.94 m/sec MV deceleration [id number] msec MV A-wave Vmax 0.66 m/sec MV [...] Normal Mid-Posterolateral Normal Mid-Inferior Normal Mid-Inferoseptal Normal Chunky-Septal Normal Chunky-Anterior Normal Chunky-Lateral Normal Chunky-Inferior Normal Chunky-Tip Normal TTE 01/12/21 1. A trivial pericardial [...] MV E-wave Vmax 0.52 m/sec MV deceleration [id number] msec MV A-wave Vmax 0.41 m/sec MV [...] Normal Mid-Posterolateral Normal Mid-Inferior Normal Mid-Inferoseptal Normal Chunky-Septal Normal Chunky-Anterior Normal Chunky-Lateral Normal Chunky-Inferior Normal Chunky-Tip Normal Pericardiocentesis 01/11/21 Conclusions: * Successful placement [...] 4:20 PM Jayne Rogel APRN Cardiology at [facility] Arrive at: Drum Drier Operator Area [phone] 02/05/2021 2:15 PM Mary Daley PA Cardiology at [facility] Arrive at: Drum Drier Operator Area [phone] General Instructions DISCHARGE INSTRUCTIONS FOLLOWING YOUR ABLATION [...] of any new medications initiated at the [facility]. The patient should be aware and informed [...] or the Cardiac Electrophysiology Service Triage Nurse ([phone], option 3). Patient Instructions Patient Instructions on [...] Center 01/17/2021 4:20 PM Jayne Rogel APRN [facility] CARD 4A [facility] 02/05/2021 2:15 PM Mary Daley PA [facility] 4A [facility] PCP: Bin Bowman MD @ [phone] Company Manager: Will be assigned at the next cardiology appt Your Inpatient Medical Team at [facility] Name(s) of your inpatient provider(s): Jose Anand MD- Attending physician Thor Wills MD- Tool Or Die Drawing Checker Harini Jansen MD-Resident Physician Chavo Dominguez MD- Warehouse Processor Physician Call your doctor if: Chest pain, shortness of breath, pain or swelling in legs occurs. If you have non-emergent questions between now and the time of your follow up appointments: During 8am-5pm Friday through Friday call [phone] to speak with a nurse in the cardiology clinic All other times call [phone] and ask to speak to the assembler molded frames regional education coordinator. For questions regarding this document or issues relating to this hospitalization on the Medical Service, please contact your inpatient physician through the [facility] Angular Developer . Issues afterhours and on weekends will be handled by the Company Manager staff on-call. documented in this encounter Discharge Instructions * Discharge Instructions* Maria M Hercules, DIRECTOR OF MARKETING OPERATIONS - 01/12/2021 4:04 PM EST DISCHARGE INSTRUCTIONS [...] of any new medications initiated at the [facility]. The patient should be aware and informed [...] or the Cardiac Electrophysiology Service Triage Nurse ([phone], option 3). * Patient Instructions* Harini Jansen [...] Center 01/17/2021 4:20 PM Jayne Rogel APRN [facility] CARD 4A [facility] 02/05/2021 2:15 PM Mary Daley PA [facility] CARD 4A [facility] PCP: Bin Bowman MD @ [phone] Company Manager: Will be assigned at the next cardiology appt Your Inpatient Medical Team at [facility] Name(s) of your inpatient provider(s): Jose Anand MD- Attending physician Thor Wills MD- Tool Or Die Drawing Checker Harini Jansen MD-Resident Physician Chavo Dominguez MD- Warehouse Processor Physician Call your doctor if: Chest pain, shortness of breath, pain or swelling in legs occurs. If you have non-emergent questions between now and the time of your follow up appointments: During 8am-5pm Friday through Friday call [phone] to speak with a nurse in the cardiology clinic All other times call [phone] and ask to speak to the assembler molded frames regional education coordinator. documented in this encounter Medications at Time [...] Physical Therapy: 20 NAYAN GUERRERO, PT Pager: [phone] Physical Therapy Inpatient Rehabilitation Department * Tess [...] and tele removed. Pt brought to [facility] in wheelchair by staff with [...] Dr. Jansen. Jose Anand MD, MPH, VI, [facility] Pager [phone] Cardiovascular Monorail OperatorLocks[place] [address] * Mahogany Ferreira OT - 01/13/2021 12:16 PM EST Occupational Therapy Note 01/13/21 1214 OT Time and Intention Document Type contact Total Minutes, Occupational Therapy 0 Comment, Session Not Performed Order received. Chart reviewed. Spoke with both RN and PT. No acute OT needs. Pt mobilizing independently/supervised, and managing own ADLs. Will sign off. Mahogany Ferreira OTR Pager [phone] * Nilsa Goldstein MD - 01/13/2021 10:45 AM EST Inpatient Cardiology Progress Note Patient Name: Rolo Aguilar Responsible Attending: Jose Anand MD EP Attending: Nilsa Goldstein MD Reason for continued hospitalization: Evaluation and management of pericardial effusion post ablation Active Problems: Active Hospital Problems Diagnosis ??? SVT (supraventricular tachycardia) Added automatically from request for surgery [id number] ??? PAF (paroxysmal atrial fibrillation) Added automatically from request for surgery [id number] ??? H/O cardiac radiofrequency ablation Resolved Hospital [...] HR: SR 70-100 with intermittent SVT/ atrial [id number] bpm. Meds: Scheduled Meds: ??? metoprolol tartrate [...] 1 month after Zio. Maria M Hercules, DIRECTOR OF MARKETING OPERATIONS 01/13/2021 Pager: [phone] Addendum Stable, overall condition appears to have [...] Note: Added automatically from request for surgery [id number] ??? Bipolar disorder ??? PAF (paroxysmal atrial fibrillation) Overview Note: Added automatically from request for surgery [id number] ??? Flutter-fibrillation ??? H/O cardiac radiofrequency ablation [...] EKG - sinus rhythm rate 96 bpm. HI 154ms, QRS 94ms, QT 354 ms, QTc [...] Dr. Escobar for results. Maria M Hercules, DIRECTOR OF MARKETING OPERATIONS 01/12/2021 Pager: [phone] Cardiac Electrophysiology Attending This patient was seen [...] performed by Colt Hewitt MD [facility] MAIN OR ??? PRO UNLISTED LAPAROSCOPIC PX LVR N/A 07/21/2018 LAPAROSCOPIC LIVER BIOPSY (WRVU 16.52) performed by Colt Hewitt MD at [facility] MAIN OR ??? PRO UPPER GI ENDOSCOPY, BIOPSY N/A 12/29/2017 UPPER GASTROINTESTINAL ENDOSCOPY,WITH BIOPSY SINGLE OR MULTIPLE (WRVU 2.49) performed by Yusuf Tucker MD at [facility] ENDOSCOPY ??? PRO UPPER GI ENDOSCOPY, DIAGNOSTIC N/A 12/29/2017 EGD, UPPER GI ENDOSCOPY performed by Yusuf Tucker MD at [facility] ENDOSCOPY ??? TONSILLECTOMY Active Non-Hospital Problems Diagnosis ??? Bipolar disorder ??? Flutter-fibrillation ??? Coronary disease ??? Heart palpitations ??? Obesity ??? Essential hypertension Social History: Pt resides with and mother in a house with 5 stairs to enter with L sided railing. Pt has a flt to basement where he resides with L sided railing. 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 Precautions/Special Considerations: Fall risk, lobato,chest tube,PIV,significant [...] Physical Therapy: 40 Macey Alarcon, PT Pager: [phone] Physical Therapy Inpatient Rehabilitation Department * Mark [...] Will continue to follow. CARMELO Souza/L Pager: [phone] * Jose Anand MD - 01/12/2021 7:00 [...] 3.2 oz) Labs Recent Labs 01/11/21 0740 01/10/212154 WBC 13.2* 16.1* HGB 13.7 13.5* HCT [...] Dr. Dominguez. Jose Anand MD, MPH, RPVI, [facility] Pager [phone] Cardiovascular Monorail OperatorLocks[place] [address] * Nayan William RN - 01/12/2021 6:15 AM EST Loss of arterial line overnight. MD notified. Line d/c'd by FLAVIA Gregory, pressure held by this conventional mortgage underwriter. Non-invasive BP remains WNL. Pain and [...] that he had been found to havea tvbai-gz-ycsskubw size pericardial effusion on echocardiogram during the [...] this patient and discussed with the internal control manager, resident, fellow. I have personally reviewed the echocardiogram (initial and repeat) and discussed with Fadi Escobar from EP. While no clear evidence of tamponade, we will tap and leave drain in for fluid. Hold anticoagulation fornow. Judy Tijerina MD, Robinson, [facility] Cardiology Attending ID: Rolo Aguilar [...] room. 01/11/2021: 0220: Verbal report called to [facility] nurseJami. Plans for transport per protocol on monitor withnurse assist. documented in this encounter H&P Notes * Judy Tijerina MD - 01/10/2021 9:24 PM EST Cardiology Admission History and Physical Patient Name: Rolo Aguilar Service: S1 Team Responsible Attending: Rayo Bianchi MD PCP: Bin Bowman MD PCP phone #: [phone] ID/Chief Complaint: Rolo Aguilar is a 50 [...] a total of 1.6 LR in the laboratory technician. He was awakened from anesthesia, [...] ventricular segmental wall motion abnormalities present at [facility] inferolateral wall, as coded in the [...] tachycardia) Added automatically from request for surgery [id number] ??? Bipolar disorder ??? PAF (paroxysmal atrial fibrillation) Added automatically from request for surgery [id number] ??? Flutter-fibrillation ??? H/O cardiac radiofrequency ablation [...] PLAN: Admit to Cardiology, M1S1 Team Pager #[phone] #Post-Procedural Hypotension #Atrial Flutter s/p ablation #Hx [...] this patient and discussed with the internal control manager, resident, fellow. Judy Tijerina MD, Robinson, [facility] Cardiology Attending * Fadi Escobar MD - 01/10/2021 10:24 AM EST Interval History and Physical Exam: Planned Procedure [facility] CARDIAC ELECTROPHYSIOLOGY LABORATORIES HISTORY OF PRESENT ILLNESS: [...] performed by Colt Hewitt MD [facility] MAIN OR ??? PRO UNLISTED LAPAROSCOPIC PX LVR N/A 07/21/2018 LAPAROSCOPIC LIVER BIOPSY (WRVU 16.52) performed by Colt Hewitt MD at [facility] MAIN OR ??? PRO UPPER GI ENDOSCOPY, BIOPSY N/A 12/29/2017 UPPER GASTROINTESTINAL ENDOSCOPY,WITH BIOPSY SINGLE OR MULTIPLE (WRVU 2.49) performed by Yusuf Tucker MD at [facility] ENDOSCOPY ??? PRO UPPER GI ENDOSCOPY, DIAGNOSTIC N/A 12/29/2017 EGD, UPPER GI ENDOSCOPY performed by Yusuf Tucker MD at [facility] ENDOSCOPY ??? TONSILLECTOMY Accessory Clinical Findings: [...] Procedure Note: Patient Name: Rolo Aguilar : [id number] MR#: [id number] Case Date: 01/11/2021 Angular Developer: Surgeon(s) and Role: * Erich Amato MD - Primary * Rachana Silver DO - Fellow Preoperative diagnosis: Pericardial drain placement Postoperative diagnosis: * Pre-tamponade * Procedure(s) performed: Pericardiocentesis Pericardial drain placement Access: Apical chest wall, just below the left breast; six occitan pigtail. A time-out was conducted prior to [...] 90 days) Any patient receiving care at [facility] must abide by [place] law. The hierarchy [...] (i) The agent with financial power of clerk carrier or a conservator appointed in accordance with RSA 464-A. (j) The guardian of the patient???s estate. Current Functional Ability: Current Functional Status: Independent Functional Status Prior to Admission: Prior Functional Status: Independent Home Environment: People in Home: spouse. Living Arrangements: house. Current DME: None DME Needed at DC: None Home Address Listed as: [address] [place] [address] Social & Family Supports: Extended Emergency Contact Information Primary Emergency Contact: Autumn Aguilar Address: [address] [place] [id number] [place] [address] Mobile Relation: Spouse Secondary Emergency Contact: TadeoWhitney Address: [address] [place] [address] [facility] Relation: Sibling Community Resources being [...] Insurance: N/A Prescription Coverage: yes Preferred Pharmacy: [facility]/pharmacy #[id number] - [place] - [address] [place] [address] [facility] [place] [address] [facility] [phone] [id number] - [place] [address] [facility] [place] [address] [id number] - [place] [address] [facility] [address] [place] [address] [place] [phone] Primary Care Provider: Bin Bowman MD [phone] Patient/Caregiver Goals of Treatment: DC home Potential [...] of care planning. Chanell Fatima RN, MSN, gin pole operator Office of Care Management Pager: [phone] Work * Brief Op Note - Fadi Escobar MD - 01/10/2021 7:27 PM EST Brief Operative Note Patient Name: Rolo Aguilar : [id number] MR#: [id number] Case Date: 01/10/2021 Surgeon: Surgeon(s) and Role: [...] were issues with initial functionality of the Beacon Power data Better Beanisiton system, the EP-4 stimulator, and the lateral [employer] fluoroscopic camera. Reconfigurations, engaging with technical support, [...] rate of 2500 units/hour. The short 8 Botswanan sheaths in the right femoral vein were [...] of 1110 milliseconds (ms) were as follows: HI: 180 ms (P wave duration 140 ms) QRS: 100 ms QT: 480 ms 2) Atrial overdrive pacing was accomplished from the proximal-most bipole in the coronary sinus (CS), and the atrioventricular (AV) Wenckebach block CL was observed at 410 ms. There was no pre-excitation or conduction aberrancy identified. 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 Left Atrial Anatomy and Mapping: A TeeBeeDee ThermoCool SF 8 Fr ablation catheter with [...] the targeted delivery [place] a [place] 6[address]24 Joules during minutes:seconds of actual ablation time, [...] (and/or limitations of familiarity) with the recently installedClStealth Social Networking Grid mapping system. Mitral Annular Flutter Induction, Mapping, [...] Dose: 681 mGy Total Radiofrequency Energy Delivered: [id number] Joules Total Actual Ablation Time: 50:31 m:s [...] revealed that he had developed a s qkvs-hk-rpzkpqfd effusion with restricted filling (though not overt right atrial collapse). A pericardiocentesis subsequently was performed with a 300 cc of bloody fluid removed (please see separte report by Erich Amato MD), and the blood pressure reverted to baseline values; a 6 Botswanan pericardial drain was placed, but there was no significant fluid reaccumulation. documented in this encounter Plan of Treatment Upcoming Encounters Date Type Department Care Team (Late st Contact Info) Description 09/21/2024 10:[address] [place] [address] Rachel Carrasco MD [facility] [place] [address] 09/21/2024 11:00 AM EST [place] [phone] Rachel Carrasco MD [facility] [place] [address] Pending Results Name Type Priority Associated Diagnoses [...] ?ISAAC Rodney ?(Age): 1970(50y) Med Rec#: ? [id number] ?Sex: ?M ? Site Loc: ? [facility] ?Ht / Wt: ??168(cm)/198(kg) Pt. Loc: ?Adult Floor ? BSA: ?2.79 Study Date: ?? 01/13/2021 ?Pt. Type: Inpatient Tape: ? Referring: Jose Anand ??([id number]) Reading: Joss De Anda ([id number]) Wind Tunnel Engineer: Shahriar Juan RDCS, FASE Diagnosis: *Pericardial effusion [...] Vmax ?0.94 ? m/sec ? MV deceleration omuh168.49 ? msec ? MV A-wave Vmax ?0.66 [...] ? Mid-Inferior ?Normal ? Mid-Inferoseptal ?Normal ? Chunky-Septal ? Normal ? Chunky-Anterior ? Normal ? Chunky-Lateral ?Normal ? Chunky-Inferior ? Normal ? Chunky-Tip ?Normal ? This report has been electronically signed by: Joss De Anda MD ? 01/13/2021 11:37:34 Images reviewed and interpretation verified [facility] Cardiac Ultrasound Laboratory Procedure Note Joss De Anda MD - 01/13/2021 Procedure: Transthoracic Echocardiogram Patient: ISAAC Rodney (Age): 1970(50y) Med Rec#: [id number] Sex: M Site Loc: [facility] Ht / Wt: 168(cm)/198(kg) Pt. Loc: Adult Floor BSA: 2.79 Study Date: 01/13/2021 Pt. Type: Inpatient Tape: Referring: Jose Anand ([id number]) Reading: Joss De Anda ([id number]) Wind Tunnel Engineer: Shahriar Juan RDCS, FASE Diagnosis: *Pericardial effusion [...] MV E-wave Vmax 0.94 m/sec MV deceleration ixty715.49 msec MV A-wave Vmax 0.66 m/sec MV [...] Normal Mid-Posterolateral Normal Mid-Inferior Normal Mid-Inferoseptal Normal Chunky-Septal Normal Chunky-Anterior Normal Chunky-Lateral Normal Chunky-Inferior Normal Chunky-Tip Normal This report has been electronically signed by: Joss De Anda MD 01/13/2021 11:37:34 Images reviewed and interpretation verified [facility] Cardiac Ultrasound Laboratory Jose Anand MD ECHO ORDERABLES * EKG 12 Lead (01/13/2021 8:06 AM EST) Ventricular rate 141 BPM MUSE SYSTEM Atrial Rate 141 BPM MUSE SYSTEM P-R Interval 146 ms MUSE SYSTEM QRS Duration 94 ms MUSE SYSTEM Q-T Interval 266 ms MUSE SYSTEM QTC Calculated (Bezet) 407 ms MUSE SYSTEM Calculated P [place] 55 degrees MUSE SYSTEM Calculated R [place] 28 degrees MUSE SYSTEM Calculated T [place] 54 degrees MUSE SYSTEM INTERPRETATION Sinus tachycardia Low voltage QRS Possible Inferior infarct (cited on or before 13-JAN-2021) Abnormal ECG When compared with ECG of 12-JAN-2021 00:07, Diffuse ST-elevations have resolved, and there are now diffuse TWI, consistent with resolving pericarditis Confirmed by MD Neetu, Joss ([id number]) on 01/13/2021 12:29:23 PM MUSE SYSTEM 01/13/2021 8:06 AM EST 01/13/2021 12:29 PM EST Jose Anand MD ECG ORDERABLES MUSE SYSTEM * (ABNORMAL) Differential, Automated (01/13/2021 5:30 AM EST) Pathologist [facility] Neutrophil % 71.0 % [facility] Neutrophil Absolute 8.18(H) 1.70 - 6.10 x10(3)/mc L [facility] Lymph % 16.6 % [facility] Lymphocytes Abs 1.9 0.9 - 3.2 x10(3)/mc L [facility] Monocyte % 10.7 % [facility] Monocyte Abs 1.2(H) 0.3 - 0.9 x10(3)/mc L [facility] Eos % 0.5 % [facility] Eosinophils Abs 0.1 0.0 - 0.4 x10(3)/[facility] Basophil % 0.3 % [facility] Baso Absolute 0.0 0.0 - 0.1 x10(3)/[facility] Immature Gran % 0.90 % [facility] Comment: Immature granulocytes(IG's)percentage and absolute count will include metamyelocytes, myelocytes, and promyelocytes. Blood smears from CBCs yielding IG's will be scanned manually for concordance. If this scan disagrees with the automated IG or if promyelocytes are noted, a manual differential will be performed. Immature Gran Absolute 0.10(H) 0.00 - 0.04 x10(3)/[facility] Blood specimen (specimen) 01/13/2021 5:30 AM EST 01/13/2021 5:44 AM EST Narrative Resulting Agency Comment Spec In Lab Harini Jansen MD HEMATOLOGY ORDERABLE S [facility] [place] [address] * (ABNORMAL) Hemogram (01/13/2021 5:30 AM EST) White Blood Cell 11.5(H) 4.0 - 9.5 x10(3)/[facility] LABORATORY Red Blood Cell 4.11(L) 4.58 - 5.54 x10(6)/ L [facility] Hemoglobin 11.4(L) 13.7 - 16.5 gm/dL [facility] Hematocrit 35.1(L) 40.5 - 48.5 % [facility] Mean Cell Volume 85.4 82.9 - 93.1 fL [facility] Mean Cell Hemoglobin 27.7 27.5 - 32.1 pg [facility] Mean Cell Hemoglobin Concentration 32.5 32.0 - 35.7 gm/dL [facility] Platelet 122(L) 145 - 357 x10(3)/mc L [facility] RDW Standard Deviation 44.7 36.0 - 45.0 fL [facility] RDW coefficient of variation 14.6(H) 11.4 - 13.8 % [facility] Mean Platelet Volume 10.6 7.6 - 12.9 fL [facility] NRBC% auto 0.0 % [facility] NRBC Absolute 0.000 0.000 - 0.000 x10(3)/mc L [facility] Blood specimen (specimen) 01/13/2021 5:30 AM EST 01/13/2021 5:44 AM EST Narrative Resulting Agency Comment Spec In Lab Harini Jansen MD HEMATOLOGY ORDERABLE S Performing Organization Address [facility]/ZIP Co de Phone Number [facility] [place] [address] * Magnesium (01/13/2021 5:30 AM EST) Magnesium 0.92 0.69 - 1.07 mmol/L [facility] Blood specimen (specimen) 01/13/2021 5:30 AM EST 01/13/2021 5:45 AM EST Narrative Resulting Agency Comment Spec In Lab Jose Anand MD CHEMISTRY ORDERABLES Performing Organization Address [facility] Co de Phone Number [facility] [place] [address] * (ABNORMAL) BMP w/fasting Glucose (01/13/2021 5:30 AM EST) Glucose Fasting 92 65 - 99 mg/dL [facility] Comment: ?Fasting* Glucose Interpretive Criteria [...] of Diabetes Mellitus, Position Statement from the [place] Diabetes Association. ??Diabetes Care, Volume 33, Supplement 1, Nov 2009 Blood Urea Nitrogen 14 10 - 20 mg/dL [facility] Creatinine 0.83 0.80 - 1.50 mg/dL [facility] Sodium 135 135 - 145 mmol/L [facility] Potassium 3.8 3.5 - 5.0 mmol/L [facility] Comment: result rechecked- Please note: ??Patients with WBC >100,000 may have falsely elevated Potassium levels. ??For accurate Potassium quantification in these patients send serum separator tube (gold top) for subsequent determinations. ??Contact the Clinical Chemistry Laboratory if there are any questions. Chloride 103 98 - 107 mmol/L [facility] Carbon Dioxide 22 22 - 31 mmol/L [facility] Anion Gap 10 5 - 15 mmol/L [facility] Calcium 8.2(L) 8.5 - 10.5 mg/dL [facility] Est Glomerular Filtration Rate 102 >=60 mL/min/1. 73 m?? [facility] Comment: This patient? s estimated [...] Lab Judy Tijerina MD CHEMISTRY ORDERABLES [facility] [place] [address] * ECHO LMTD W/O CONTRAST W LMTD SPEC DOPP (01/12/2021 11:08 AM EST) EF 70 [facility] SYSTEM Anatomical Region Laterality Modality Other 01/12/2021 Narrative 01/12/2021 11:42 AM EST Procedure: ?Transthoracic Echocardiogram Patient: ?ISAAC Rodney ?(Age): 1970(50y) Med Rec#: ? [id number] ?Sex: ?M ? [place] Loc: ? [facility] ?Ht / Wt: ??168(cm)/198(kg) Pt. Loc: ?Adult Floor ? BSA: ?2.79 Study Date: ?? 01/12/2021 ?Pt. Type: Inpatient Tape: ? Referring: Thor Wills ([id number]) Referring: Judy Tijerina Reading: Roxana Mesa ([id number]) Wind Tunnel Engineer: Willie Dugan [facility] Wind Tunnel Engineer 2: Suzy Randolph Diagnosis: *Pericardial effusion (noninflammatory) [...] ? Mid-Inferior ?Normal ? Mid-Inferoseptal ?Normal ? Chunky-Septal ? Normal ? Chunky-Anterior ? Normal ? Chunky-Lateral ?Normal ? Chunky-Inferior ? Normal ? Chunky-Tip ?Normal ? This report has been electronically signed by: Roxana Mesa MD ? 01/12/2021 11:42:18 Images reviewed and interpretation verified [facility] Cardiac Ultrasound Laboratory Procedure Note Roxana Mesa MD - 01/12/2021 Procedure: Transthoracic Echocardiogram Patient: ISAAC Rodney (Age): 1970(50y) Med Rec#: [id number] Sex: M Site Loc: [facility] Ht / Wt: 168(cm)/198(kg) Pt. Loc: Adult Floor BSA: 2.79 Study Date: 01/12/2021 Pt. Type: Inpatient Tape: Referring: Thor Wills ([id number]) Referring: Judy Tijerina Reading: Roxana Mesa ([id number]) Wind Tunnel Engineer: Willie Dugan [facility] Wind Tunnel Engineer 2: Suzy Randolph Diagnosis: *Pericardial effusion (noninflammatory) [...] Normal Mid-Posterolateral Normal Mid-Inferior Normal Mid-Inferoseptal Normal Chunky-Septal Normal Chunky-Anterior Normal Chunky-Lateral Normal Chunky-Inferior Normal Chunky-Tip Normal This report has been electronically signed by: Roxana Mesa MD 01/12/2021 11:42:18 Images reviewed and interpretation verified [facility] Cardiac Ultrasound Laboratory Judy Tijerina MD ECHO ORDERABLES * Scan, Peripheral Blood (01/12/2021 8:19 AM EST) Pathologist [facility] Plat estimate Normal [facility] RBC Morphology Abnormal [facility] Ovalocytes 1-5 /HPF [facility] [place] Cells 1-5 /HPF [facility] Vacuolated Neut Present [facility] Blood specimen (specimen) 01/12/2021 8:19 AM EST 01/12/2021 8:36 AM EST Narrative Resulting Agency Comment Spec In Lab Harini Jansen MD HEMATOLOGY ORDERABLE S [facility] [place] [place] [address] * (ABNORMAL) Differential, Automated (01/12/2021 8:19 AM EST) Pathologist [facility] Neutrophil % 71.6 % [facility] Neutrophil Absolute 13.82(H) 1.70 - 6.10 x10(3)/mc L [facility] Lymph % 7.9 % [facility] Lymphocytes Abs 1.5 0.9 - 3.2 x10(3)/mc L [facility] Monocyte % 8.4 % [facility] Monocyte Abs 1.6(H) 0.3 - 0.9 x10(3)/ L [facility] Eos % 11.3 % [facility] Eosinophils Abs 2.2(H) 0.0 - 0.4 x10(3)/ L [facility] Basophil % 0.2 % [facility] Baso Absolute 0.0 0.0 - 0.1 x10(3)/ L [facility] Immature Gran % 0.60 % [facility] Comment: Immature granulocytes(IG's)percentage and absolute count will include metamyelocytes, myelocytes, and promyelocytes. Blood smears from CBCs yielding IG's will be scanned manually for concordance. If this scan disagrees with the automated IG or if promyelocytes are noted, a manual differential will be performed. Immature Gran Absolute 0.12(H) 0.00 - 0.04 x10(3)/ L [facility] Blood specimen (specimen) 01/12/2021 8:19 AM EST 01/12/2021 8:36 AM EST Narrative Resulting Agency Comment Spec In Lab Harini Jansen MD HEMATOLOGY ORDERABLE S [facility] [place] [place] [address] * (ABNORMAL) Hemogram (01/12/2021 8:19 AM EST) White Blood Cell 19.3(H) 4.0 - 9.5 x10(3)/ L [facility] Red Blood Cell 4.48(L) 4.58 - 5.54 x10(6)/mc L [facility] Hemoglobin 12.5(L) 13.7 - 16.5 gm/dL [facility] Hematocrit 38.9(L) 40.5 - 48.5 % [facility] Mean Cell Volume 86.8 82.9 - 93.1 fL [facility] Mean Cell Hemoglobin 27.9 27.5 - 32.1 pg [facility] Mean Cell Hemoglobin Concentration 32.1 32.0 - 35.7 gm/dL [facility] Platelet 179 145 - 357 x10(3)/mc L [facility] RDW Standard Deviation 46.8(H) 36.0 - 45.0 [facility] RDW coefficient of variation 14.8(H) 11.4 - 13.8 % [facility] Mean Platelet Volume 9.9 7.6 - 12.9 fL [facility] NRBC% auto 0.0 % [facility] NRBC Absolute 0.000 0.000 - 0.000 x10(3)/mc L [facility] Blood specimen (specimen) 01/12/2021 8:19 AM EST 01/12/2021 8:36 AM EST Narrative Resulting Agency Comment Spec In Lab Harini Jansen MD HEMATOLOGY ORDERABLE S [facility] [place] [place] [address] * Magnesium (01/12/2021 3:55 AM EST) Magnesium 0.95 0.69 - 1.07 mmol/L [facility] Comment:result rechecked-peg Blood specimen (specimen) Venous Draw / Unknown 01/12/2021 3:55 AM EST 01/12/2021 4:03 AM EST Narrative Resulting Agency Comment Spec In Lab Harini Jansen MD CHEMISTRY ORDERABLES [facility] [place] [place] [address] * (ABNORMAL) BMP w/fasting Glucose (01/12/2021 3:55 AM EST) Glucose Fasting 126(H) 65 - 99 mg/dL [facility] Comment: ?Fasting* Glucose Interpretive Criteria [...] of Diabetes Mellitus, Position Statement from the [employer] Diabetes Association. ??Diabetes Care, Volume 33, Supplement 1, Nov 2009 Blood Urea Nitrogen 18 10 - 20 mg/dL [facility] Creatinine 0.91 0.80 - 1.50 mg/dL [facility] Sodium 135 135 - 145 mmol/L [facility] Potassium 5.0 3.5 - 5.0 mmol/L [facility] Comment: Please note: ??Patients with WBC >100,000 may have falsely elevated Potassium levels. ??For accurate Potassium quantification in these patients send serum separator tube (gold top) for subsequent determinations. ??Contact the Clinical Chemistry Laboratory if there are any questions. Chloride 104 98 - 107 mmol/L [facility] Carbon Dioxide 22 22 - 31 mmol/L [facility] Anion Gap 9 5 - 15 mmol/L [facility] Calcium 8.2(L) 8.5 - 10.5 mg/dL [facility] Est Glomerular Filtration Rate 97 >=60 mL/min/1. 73 m?? [facility] Comment: This patient? s estimated [...] Tijerina MD CHEMISTRY ORDERABLES Performing Organization Address City/[facility] Co de Phone Number [facility] [place] [address] * EKG 12 Lead (01/12/2021 12:07 AM EST) Ventricular rate 96 BPM MUSE SYSTEM Atrial Rate 96 BPM MUSE SYSTEM P-R Interval 154 ms MUSE SYSTEM QRS Duration 94 ms MUSE SYSTEM Q-T Interval 354 ms MUSE SYSTEM QTC Calculated (Bezet) 447 ms MUSE SYSTEM Calculated P [place] 44 degrees MUSE SYSTEM Calculated R [place] 16 degrees MUSE SYSTEM Calculated T [place] 23 degrees MUSE SYSTEM INTERPRETATION Normal sinus rhythm Diffuse ST elevation, consider early repolarization, pericarditis, or injury Abnormal ECG When compared with ECG of 11-JAN-2021 06:29, Acute pericarditis is suspected. I personally reviewed the tracing and edited the fellows interpretation Confirmed by fellow Fernandez Higuera ([id number]) on 01/12/2021 9:35:13 AM Confirmed by Vini Chanel ([id number]) on 01/12/2021 5:29:51 PM MUSE SYSTEM 01/12/2021 12:0 7 AM EST 01/12/2021 5:29 PM EST Judy Tijerina MD ECG ORDERABLES Performing Organization Address City/[facility]/ZIP Co de Phone Number MUSE SYSTEM * CARDIAC CATHETERIZATION (01/11/2021 2:33 PM EST) Anatomical Region Laterality Modality Other Narrative 01/11/2021 2:49 PM EST ?[facility] ? Cardiac Catheterization/Intervention Report ? Patient Name: Isaac, Rolo M ? Procedure Date: 01/11/2021 ? A #: [id number] ? Primary Physician: Genesis, Erich T ? Case #: [id number] ? File Name: [id number] ? Catheterization Order Number: [id number] ? [facility] ? Final Report [place], [place] ? Patient Name: ? Rolo Aguilar ? ID#: ?[id number] ? : ?1970 ? Procedure Date: ? [...] was designated as ASA Class IV. The [facility] clinical ?frailty scale is 6: Moderately [...] Procedure Note Erich Amato MD - 01/11/2021 [facility] Cardiac Catheterization/Intervention Report Patient Name: IsaacRolo Procedure Date: 01/11/2021 A #: [id number] Primary Physician: Erich Amato Case #: [id number] File Name: [id number] Catheterization Order Number: [id number] [facility] FinalReport [place], [place] Patient Name: Rolo Aguilar ID#:[id number] :1970 Procedure Date: January 11, 2021 Case [...] * Lactate, whole blood, send to lab ([facility] (01/11/2021 1:10 PM EST) Pathologist [facility] Lactate WB 2.1 0.5 - 2.2 mmol/L [facility] Blood specimen (specimen) 01/11/2021 1:10 PM EST 01/11/2021 1:25 PM EST Narrative Resulting Agency Comment Spec In Lab Judy Tijerina MD CHEMISTRY ORDERABLES [facility] [place] [place] [address] * ECHO COMPLETE W CONTRAST (01/11/2021 10:21 AM EST) EF 63 HEARTLAB SYSTEM Anatomical Region Laterality Modality Other 01/11/2021 Narrative 01/11/2021 11:10 AM EST Procedure: ?Transthoracic Echocardiogram Patient: ?ISAAC Rodney ?(Age): 1970(50y) Med Rec#: ? [id number] ?Sex: ?M ? Site Loc: ? [facility] ?Ht / Wt: ??167(cm)/185(kg) Pt. Loc: ?Adult Floor ? BSA: ?2.7 Study Date: ?? 01/11/2021 ?Pt. Type: Inpatient Tape: ? Referring: Rayo Bianchi ([id number]) Reading: Khurram Barillas ([id number]) Wind Tunnel Engineer: Viola Moore Wind Tunnel Engineer 2: Humza Wilson ([id number]) Interpreting Fellow: Humza Wilson ([id number]) Diagnosis: *Supraventricular tachycardia (I47.1) *1 vial Optison [...] Vmax ?0.52 ? m/sec ? MV deceleration [id number] ? msec ? MV A-wave Vmax ?0.41 [...] ? Mid-Inferior ?Normal ? Mid-Inferoseptal ?Normal ? Chunky-Septal ? Normal ? Chunky-Anterior ? Normal ? Chunky-Lateral ?Normal ? Chunky-Inferior ? Normal ? Chunky-Tip ?Normal ? This report has been electronically signed by: Khurram Barillas MD ? 01/11/2021 11:04:46 Images reviewed and interpretation verified [facility] Cardiac Ultrasound Laboratory Procedure Note Khurram Barillas MD - 01/11/2021 Procedure: Transthoracic Echocardiogram Patient: ISAAC Rodney (Age): 1970(50y) Med Rec#: [id number] Sex: M Site Loc: [facility] Ht / Wt: 167(cm)/185(kg) Pt. Loc: Adult Floor BSA: 2.7 Study Date: 01/11/2021 Pt. Type: Inpatient Tape: Referring: Rayo Bianchi ([id number]) Reading: Khurram Barillas ([id number]) Wind Tunnel Engineer: Viola Moore Wind Tunnel Engineer 2: Humza Wilson ([id number]) Interpreting Fellow: Humza Wilson ([id number]) Diagnosis: *Supraventricular tachycardia (I47.1) *1 vial Optison [...] MV E-wave Vmax 0.52 m/sec MV deceleration [id number] msec MV A-wave Vmax 0.41 m/sec MV [...] Normal Mid-Posterolateral Normal Mid-Inferior Normal Mid-Inferoseptal Normal Chunky-Septal Normal Chunky-Anterior Normal Chunky-Lateral Normal Chunky-Inferior Normal Chunky-Tip Normal This report has been electronically signed by: Khurram Barillas MD 01/11/2021 11:04:46 Images reviewed and interpretation verified [facility] Cardiac Ultrasound Laboratory Rayo Bianchi MD ECHO [...] * POCT Glucose (01/11/2021 7:45 AM EST) Glucose, POC 136 65 - 199 mg/dL [facility] Comment: Supplemental ranges: <140 mg/dL before meals <180 mg/dL all other times of the day Blood specimen (specimen) 01/11/2021 7:45 AM EST 01/11/2021 7:45 AM EST Judy Tijerina MD POINT OF CARE TEST O RDERABLES [facility] [place] [address] * (ABNORMAL) Differential, Automated (01/11/2021 7:40 AM EST) Neutrophil % 85.3 % [facility] Neutrophil Absolute 11.24(H) 1.70 - 6.10 x10(3)/mc L [facility] Lymph % 8.5 % [facility] Lymphocytes Abs 1.1 0.9 - 3.2 x10(3)/ L [facility] Monocyte % 5.5 % [facility] Monocyte Abs 0.7 0.3 - 0.9 x10(3)/[facility] Eos % 0.0 % [facility] Eosinophils Abs 0.0 0.0 - 0.4 x10(3)/[facility] Basophil % 0.1 % [facility] Baso Absolute 0.0 0.0 - 0.1 x10(3)/[facility] Immature Gran % 0.60 % [facility] Comment: Immature granulocytes(IG's)percentage and absolute count will include metamyelocytes, myelocytes, and promyelocytes. Blood smears from CBCs yielding IG's will be scanned manually for concordance. If this scan disagrees with the automated IG or if promyelocytes are noted, a manual differential will be performed. Immature Gran Absolute 0.08(H) 0.00 - 0.04 x10(3)/mc L [facility] Blood specimen (specimen) 01/11/2021 7:40 AM EST 01/11/2021 7:58 AM EST Narrative Resulting Agency Comment Spec In Lab Harini Jansen MD HEMATOLOGY ORDERABLE S Performing Organization Address City/[facility]/ZIP Co de Phone Number [facility] [place] [place] [address] * (ABNORMAL) Hemogram (01/11/2021 7:40 AM EST) White Blood Cell 13.2(H) 4.0 - 9.5 x10(3)/ L [facility] Red Blood Cell 4.87 4.58 - 5.54 x10(6)/mc L [facility] Hemoglobin 13.7 13.7 - 16.5 gm/dL [facility] Hematocrit 42.2 40.5 - 48.5 % [facility] Mean Cell Volume 86.7 82.9 - 93.1 fL [facility] Mean Cell Hemoglobin 28.1 27.5 - 32.1 pg [facility] Mean Cell Hemoglobin Concentration 32.5 32.0 - 35.7 gm/dL [facility] Platelet 224 145 - 357 x10(3)/[facility] RDW Standard Deviation 45.8(H) 36.0 - 45.0 [facility] RDW coefficient of variation 14.3(H) 11.4 - 13.8 % [facility] Mean Platelet Volume 10.7 7.6 - 12.9 fL [facility] NRBC% auto 0.0 % [facility] NRBC Absolute 0.000 0.000 - 0.000 x10(3)/[facility] Blood specimen (specimen) 01/11/2021 7:40 AM EST 01/11/2021 7:58 AM EST Narrative Resulting Agency Comment Spec In Lab Harini Jansen MD HEMATOLOGY ORDERABLE S [facility] [place] [place] [address] * (ABNORMAL) BMP w/fasting Glucose (01/11/2021 7:40 AM EST) Glucose Fasting 155(H) 65 - 99 mg/dL [facility] Comment: ?Fasting* Glucose Interpretive Criteria [...] of Diabetes Mellitus, Position Statement from the [place] Diabetes [employer]. ??Diabetes Care, Volume 33, Supplement 1, Nov 2009 Blood Urea Nitrogen 15 10 - 20 mg/dL [facility] Creatinine 0.86 0.80 - 1.50 mg/dL [facility] Sodium 134(L) 135 - 145 mmol/L [facility] Potassium 4.9 3.5 - 5.0 mmol/L [facility] Comment: Please note: ??Patients with WBC >100,000 may have falsely elevated Potassium levels. ??For accurate Potassium quantification in these patients send serum separator tube (gold top) for subsequent determinations. ??Contact the Clinical Chemistry Laboratory if there are any questions. Chloride 104 98 - 107 mmol/L [facility] Carbon Dioxide 19(L) 22 - 31 mmol/L [facility] Anion Gap 11 5 - 15 mmol/L [facility] Calcium 8.1(L) 8.5 - 10.5 mg/dL [facility] Est Glomerular Filtration Rate 100 >=60 mL/min/1. 73 m?? [facility] Comment: This patient? s estimated [...] Tijerina MD CHEMISTRY ORDERABLES Performing Organization Address [facility] Co de Phone Number [facility] [address] * (ABNORMAL) Lactate, whole blood, send to lab ([facility]) (01/11/2021 7:40 AM EST) Pathologist [facility] Lactate WB 2.7(H) 0.5 - 2.2 mmol/L [facility] Blood specimen (specimen) 01/11/2021 7:40 AM EST 01/11/2021 8:00 AM EST Narrative Resulting Agency Comment Spec In Lab Judy Tijerina MD CHEMISTRY ORDERABLES Performing Organization Address [facility] Co de Phone Number [facility] [address] * (ABNORMAL) Hepatic Function Panel (01/11/2021 6:40 AM EST) Protein, Total 5.9(L) 6.1 - 8.0 gm/dL [facility] Albumin 3.3 3.2 - 5.2 gm/dL [facility] Aspartate Aminotransferase 47(H) 0 - 39 unit/L [facility] Alanine Aminotransferase 40 0 - 55 unit/L [facility] Alkaline Phosphatase 47 40 - 130 unit/L [facility] Bilirubin, Total 0.4 0.2 - 1.3 mg/dL [facility] Bilirubin, Direct 0.1 0.0 - 0.3 mg/dL [facility] Blood specimen (specimen) Venous Draw / Unknown 01/11/2021 6:40 AM EST 01/11/2021 6:48 AM EST Narrative Resulting Agency Comment Spec In Lab Harini Jansen MD CHEMISTRY ORDERABLES Performing Organization Address [facility] Co de Phone Number [facility] [place] [address] * (ABNORMAL) Troponin (01/11/2021 6:40 AM EST) [facility] Troponin-T 1.06(H) 0.00 - 0.00 ng/mL [facility] Comment: The 99th percentile for [...] ischemia ?? New or presumed new significant BN-uvlygap-K wave (ST-T) changes or new left bundle [...] additional sample may be indicated. Reference: Third [place] Definition of Myocardial Infarction. Journal of the [employer] College of Cardiology 2012;60:1581-98 Blood specimen (specimen) 01/11/2021 6:40 AM EST 01/11/2021 6:47 AM EST Narrative Resulting Agency Comment Spec In Lab Rayo Bianchi MD CHEMISTRY ORDERABLES Performing Organization Address [facility] Co de Phone Number [facility] [place] [address] * EKG 12 Lead (01/11/2021 6:29 AM EST) Pathologist [facility] Ventricular rate 101 BPM MUSE SYSTEM Atrial Rate 101 BPM MUSE SYSTEM P-R Interval 150 ms MUSE SYSTEM QRS Duration 88 ms MUSE SYSTEM Q-T Interval 360 ms MUSE SYSTEM QTC Calculated (Bezet) 466 ms MUSE SYSTEM Calculated P [place] 46 degrees MUSE SYSTEM Calculated R [place] 47 degrees MUSE SYSTEM Calculated T [place] 29 degrees MUSE SYSTEM INTERPRETATION Sinus tachycardia Low voltage QRS Borderline ECG When compared with ECG of 11-JAN-2021 01:59, (unconfirmed) No significant change was found Confirmed by MD Alecia, Ruperto Moya ([id number]) on 01/11/2021 5:10:03 PM MUSE SYSTEM 01/11/2021 6:29 AM EST 01/11/2021 5:10 PM EST Rayo Bianchi MD ECG ORDERABLES Performing Organization Address [facility] Co de Phone Number MUSE SYSTEM * Blood culture (01/11/2021 4:51 AM EST) Blood Culture No growth at 5 days. [facility] Blood specimen (specimen) STRUCTURE OF RIGHT HAND / Unknown 01/11/2021 4:51 AM EST 01/11/2021 6:43 AM EST Comment:SET 2 Narrative Resulting Agency Comment Spec In Lab Fadi Escobar MD MICROBIOLOGY - BLOOD ORDERABLES Performing Organization Address [facility] de Phone Number [facility] [place] [address] * Blood culture (01/11/2021 4:30 AM EST) Blood Culture No growth at 5 days. [facility] Blood specimen (specimen) STRUCTURE OF RIGHT HAND / Unknown 01/11/2021 4:30 AM EST 01/11/2021 6:44 AM EST Narrative Resulting Agency Comment Spec In Lab Fadi Escobar MD MICROBIOLOGY - BLOOD ORDERABLES Performing Organization Address [facility] Co de Phone Number [facility] [place] [address] * XR Chest One View (01/11/2021 2:13 [...] (ABNORMAL) Lactate, whole blood, send to lab ([facility]) (01/11/2021 2:05 AM EST) [facility] Lactate WB 3.5(H) 0.5 - 2.2 mmol/L [facility] Blood specimen (specimen) Venous Draw / Unknown 01/11/2021 2:05 AM EST 01/11/2021 2:14 AM EST Narrative Resulting Agency Comment Spec In Lab Ernie Thrasher MD CHEMISTRY ORDER BELEN [facility] [place] [address] * EKG 12 Lead (01/11/2021 1:59 AM EST) [facility] Ventricular rate 96 BPM MUSE SYSTEM Atrial Rate 96 BPM MUSE SYSTEM P-R Interval 148 ms MUSE SYSTEM QRS Duration 84 ms MUSE SYSTEM Q-T Interval 366 ms MUSE SYSTEM QTC Calculated (Bezet) 462 ms MUSE SYSTEM Calculated P [place] 52 degrees MUSE SYSTEM Calculated R [place] 60 degrees MUSE SYSTEM Calculated T [place] 19 degrees MUSE SYSTEM INTERPRETATION Normal sinus rhythm Baseline artifact Normal ECG When compared with ECG of 17-DEC-2020 02:40, Sinus rhythm has replaced Atrial fibrillation I personally reviewed the tracing and edited the fellows interpretation Confirmed by fellow Fernandez Higuera ([id number]) on 01/11/2021 10:24:41 AM Confirmed by Vini Chanel ([id number]) on 01/12/2021 5:28:31 PM MUSE SYSTEM 01/11/2021 1:59 AM EST 01/12/2021 5:28 PM EST Rayo Bianchi MD ECG ORDERABLES MUSE SYSTEM * (ABNORMAL) Differential, Automated (01/10/2021 9:55 PM EST) Neutrophil % 88.7 % [facility] LABORATORY Neutrophil Absolute 14.29(H) 1.70 - 6.10 x10(3)/mc L [facility] Lymph % 8.9 % [facility] Lymphocytes Abs 1.4 0.9 - 3.2 x10(3)/mc L [facility] Monocyte % 1.4 % [facility] Monocyte Abs 0.2(L) 0.3 - 0.9 x10(3)/mc L [facility] Eos % 0.1 % [facility] Eosinophils Abs 0.0 0.0 - 0.4 x10(3)/mc L [facility] Basophil % 0.3 % [facility] Baso Absolute 0.0 0.0 - 0.1 x10(3)/mc L [facility] Immature Gran % 0.60 % [facility] Comment: Immature granulocytes(IG's)percentage and absolute count will include metamyelocytes, myelocytes, and promyelocytes. Blood smears from CBCs yielding IG's will be scanned manually for concordance. If this scan disagrees with the automated IG or if promyelocytes are noted, a manual differential will be performed. Immature Gran Absolute 0.09(H) 0.00 - 0.04 x10(3)/mc L [facility] Blood specimen (specimen) 01/10/2021 9:55 PM EST 01/10/2021 10:01 PM EST Narrative Resulting Agency Comment Spec In Lab Ernie Thrasher MD HEMATOLOGY SCOOTER YOUNGBLOOD [facility] [place] [place] [address] * (ABNORMAL) Hemogram (01/10/2021 9:55 PM EST) White Blood Cell 16.1(H) 4.0 - 9.5 x10(3)/mc L [facility] Red Blood Cell 4.79 4.58 - 5.54 x10(6)/mc L [facility] Hemoglobin 13.5(L) 13.7 - 16.5 gm/dL [facility] Hematocrit 41.1 40.5 - 48.5 % [facility] Mean Cell Volume 85.8 82.9 - 93.1 [facility] Mean Cell Hemoglobin 28.2 27.5 - 32.1 pg [facility] Mean Cell Hemoglobin Concentration 32.8 32.0 - 35.7 gm/dL [facility] Platelet 253 145 - 357 x10(3)/mc L [facility] RDW Standard Deviation 44.0 36.0 - 45.0 [facility] RDW coefficient of variation 14.2(H) 11.4 - 13.8 % [facility] Mean Platelet Volume 10.3 7.6 - 12.9 [facility] NRBC% auto 0.0 % [facility] NRBC Absolute 0.000 0.000 - 0.000 x10(3)/mc L [facility] Blood specimen (specimen) 01/10/2021 9:55 PM EST 01/10/2021 10:01 PM EST Narrative Resulting Agency Comment Spec In Lab Ernie Thrasher MD HEMATOLOGY SCOOTER YOUNGBLOOD Performing Organization Address [facility] Co de Phone Number [facility] [place] [address] * (ABNORMAL) APTT (01/10/2021 9:55 PM EST) Partial Thromboplastin Time 66(H) 25 - 37 sec [facility] Comment: The PTT is NOT appropriate for heparin monitoring. Use the Anti-Xa level for heparin monitoring (HEP UFH) or LMWH monitoring (HEP LMW). A PTT less than 37 seconds generally indicates adequate hemostasis. Blood specimen (specimen) 01/10/2021 9:55 PM EST 01/10/2021 10:01 PM EST Narrative Resulting Agency Comment Spec In Lab Fadi Escobar MD HEMATOLOGY ORDERABLE S Performing Organization Address [facility] de Phone Number [facility] [place] [place] [address] * (ABNORMAL) Prothrombin Time (01/10/2021 9:55 PM EST) Prothrombin Time 15.6(H) 9.4 - 12.5 sec [facility] International Normalization Ratio 1.4 [facility] Comment: An INR <2.0 indicates [...] HEMATOLOGY ORDERABLE S Performing Organization Address [facility] Co de Phone Number [facility] [place] [address] * (ABNORMAL) Hepatic Function Panel (01/10/2021 9:55 PM EST) [facility] Protein, Total 6.1 6.1 - 8.0 gm/dL [facility] Albumin 3.3 3.2 - 5.2 gm/dL [facility] Aspartate Aminotransferase 46(H) 0 - 39 unit/L [facility] Alanine Aminotransferase 40 0 - 55 unit/L [facility] Alkaline Phosphatase 51 40 - 130 unit/L [facility] Bilirubin, Total 0.5 0.2 - 1.3 mg/dL [facility] Bilirubin, Direct 0.2 0.0 - 0.3 mg/dL [facility] Blood specimen (specimen) 01/10/2021 9:55 PM EST 01/10/2021 10:01 PM EST Narrative Resulting Agency Comment Spec In Lab Fadi Escobar MD CHEMISTRY ORDERABLES Performing Organization Address [facility] de Phone Number [facility] [place] [place] [address] * (ABNORMAL) Magnesium (01/10/2021 9:55 PM EST) [facility] Magnesium 0.63(L) 0.69 - 1.07 mmol/L [facility] Blood specimen (specimen) 01/10/2021 9:55 PM EST 01/10/2021 10:01 PM EST Narrative Resulting Agency Comment Spec In Lab Fadi Escobar MD CHEMISTRY ORDERABLES Performing Organization Address [facility] Co de Phone Number [facility] [place] [address] * (ABNORMAL) Basic Metabolic Panel (non-fasting) (01/10/2021 9:55 PM EST) Glucose 171 65 - 199 mg/dL [facility] Comment:Diabetes: >=200 mg/d L plus symptoms Blood Urea Nitrogen 15 10 - 20 mg/dL [facility] Creatinine 0.89 0.80 - 1.50 mg/dL [facility] Sodium 138 135 - 145 mmol/L [facility] Potassium 4.3 3.5 - 5.0 mmol/L [facility] Comment: Please note: ??Patients with WBC >100,000 may have falsely elevated Potassium levels. ??For accurate Potassium quantification in these patients send serum separator tube (gold top) for subsequent determinations. ??Contact the Clinical Chemistry Laboratory if there are any questions. Chloride 107 98 - 107 mmol/L [facility] Carbon Dioxide 18(L) 22 - 31 mmol/L [facility] Anion Gap 13 5 - 15 mmol/L [facility] Calcium 8.1(L) 8.5 - 10.5 mg/dL [facility] Est Glomerular Filtration Rate 99 >=60 mL/min/1. 73 m?? [facility] Comment: This patient? s estimated [...] In Lab Fadi Escobar MD CHEMISTRY ORDERABLES [facility] [place] [address] * ELECTROPHYSIOLOGY PROCEDURE (01/10/2021 6:28 PM EST) Anatomical Region Laterality Modality Other Narrative 01/22/2021 8:24 AM EDT Cardiac Electrophysiology Please refer to the operative note filed under the inpatient tab following the completion of this procedure. Fadi Escobar MD EP PROCEDURE ORDERAB LES * (ABNORMAL) Point of Care Blood Gas Historical (01/10/2021 4:20 PM EST) Pathologist [facility] pH, POC 7.41 7.35 - 7.45 [facility] pCO2, POC 40 35 - 45 mmHg [facility] pO2, POC 149(H) 85 - 104 mmHg [facility] Base Excess, POC 0.0 -3.0 - 3.0 mmol/L [facility] Bicarbonate, POC 24.8 20.0 - 26.0 mmol/L [facility] Sodium, POC 139 135 - 145 mmol/L [facility] POC Potassium 3.9 3.5 - 5.0 mmol/L [facility] POC Hematocrit 42.0 40.0 - 51.0 % [facility] POC Calc Hgb 14.3 13.7 - 17.5 gm/dL [facility] Comment:The calculation of h emoglobin from hematocrit assumes a normal MCHC. POC Bgas Loc CC LAB [facility] Blood specimen (specimen) 01/10/2021 4:20 PM EST 01/11/2021 9:00 AM EST Jose Anand MD CHEMISTRY ORDERABLES [facility] [place] [place] [address] * COVID-19 PCR (01/10/2021 12:32 PM EST) Pathologist [facility] SARS-CoV-2 RNA (Rapid) Not Detected Not Detected [facility] Comment: This result should be [...] using the Simplexa COVID-19 Direct Assay by W-21 as authorized by the FDA issued Emergency [...] Department of Pathology and Laboratory Medicine at [facility], certified under the Clinical Laboratory Improvement Amendments [...] fact sheets at the following FDA website: https://www.fda.gov/medical-devices/vdgvtynyssh-gvndynj-1068-zimdu-77-sztknkafp- use-a umdeofffvilzb-yqvgiov-yvicenj/taexe-jxazvfbmmqk-vghs SARS-CoV-2 Source INTERACTIVE MEDIA DIRECTOR Swab MA RY [facility] Nasopharyngeal swab (specimen) 01/10/2021 12:32 PM EST 01/10/2021 1:22 PM EST Comment:Symptoms->Surveillan ce Narrative Resulting Agency Comment Spec In Lab Fadi Escobar MD MICROBIOLOGY - GENER AL ORDERABLES [facility] [place] [place] [address] documented in this encounter Visit Diagnoses Diagnosis [...] Candi 01/11/21 at 2100, Until Discontinued, Routine Given 01/13/2021 [...] most appropriate response: Continuation of ongoing therapy 2099 (Given - Provider: Nayan William RN) 08 (Given - Provider: Tess Santiago RN) aspirin [...] Santiago RN)1437 (Given - Provider: Tess Santiago RN)205 (Given - Provider: Nayan William RN) 0824 [...] FLAVIA) 0600 (Not Given - Provider: Nayan William RN - Reason: See comment - Comment: hold per )1438 (Given - Provider: Tess Santiago RN) ketorolac [...] Provider: Admin Adt)210 (Given - Provider: Nayan William RN) 0840 [...] Procedural area)1446 (JAN Unhold - Provider: Admin Adt)2113 (Given - Provider: Nayan William RN) 0900 [...] Hanna Claros RN - Comment: MD pope)1341 (MAR Hold - Provider: Admin Adt - [...] ordered pain medications are indicated. , Routine 0827 (Given - Provider: Tess Santiago RN) acetaminophen [...] - Reason: Transfer to a Procedural area)1446 ([facility] Unhold - Provider: Admin Adt)1516 (Given - Provider: Gina Carmichael, FLAVIA)2105 (Given - Provider: Nayan William, FLAVIA) 0322 [...] - Reason: Transfer to a Procedural area)1446 ([facility] Unhold - Provider: Admin Adt)2107 (Given - [...] Starting on Candi 01/11/21 at 1727, Until 01/12/21 at 0004, Pain, Routine 1749 (Given - Provider: Tess Santiago, RN)2214 (Given - Provider: Nayan William, RN) HYDROmorphone (Dilaudid) (1 mg/mL) injection syringe 0.4 mg 0.4 mg, Intravenous, EVERY 2 HOURS PRN, Starting on 01/12/21 at 0022, Until 01/13/21 at 1737, Pain, Routine 0100 (Given - Provider: Nayan William, RN)0323 (Given - Provider: Nayan William, RN)0521 (Given - Provider: Nayan William, RN)1014 (Given - Provider: Tess Santiago, FLAVIA)2102 (Given - Provider: Nayan William, FLAVIA) lidocaine [...] mg/day., Routine 1341 (Given - Provider: Tess Santiago, FLAVIA) midazolam (pf) (Versed) (1 mg/mL) injection [...] Routine 1401 (Given - Provider: Jonathon Jimenez, RN)1416 (Given - Provider: Jonathon Jimenez, FLAVIA)1421 (Given [...] area)1446 (MAR Unhold - Provider: Admin Adt) Linked Groups [...] patch documented in this encounter Care Teams Summer Nanny Relationship Specialty Start Date End Date Bin Bowman MD [address] [place] [id number] PCP - General General Internal Medicine 04/21/1707/11 documented as of this encounter
--- OUTSIDE RECORDS SUMMARY | 2024-07-21 11:30 | XMS_ITS | Encounter Summary ---
Author Organization [employer] [facility] Address [facility] [place] [address] Care Team Providers Care Product Safety Lead Name Role Phone Bin Bowman MD Primary Care Provider Encounter Details Date Type Department Care Team (Late st Contact Info) Description 01/03/2021 Telephone Cardiology at [address] [phone] Obdulio Dominique MD [facility] [place] [address] Social History Tobacco Use Types Packs/Day Years [...] patient to abalation - [place] [facility] The above recommendations are based on my conversation with the referring provider. I have not personally interviewed or examined this patient. Obdulio Dominique MD documented in this encounter Plan of Treatment Upcoming Encounters Date Type Department Care Team (Late st Contact Info) Description 09/21/2024 10:[address] [place] [address] Rachel Carrasco MD [facility] [place] [address] 09/21/2024 11:00 AM EST Office [place] [address] Rachel Carrasco MD [facility] [place] [address] documented as of this encounter Visit Diagnoses Not on filedocumented in this encounter Care Teams Product Safety Lead Relationship Specialty Start Date End Date Bin Bowman MD [address] [place] [id number] PCP - General General Internal Medicine 04/21/1707/11 documented as of this encounter
--- OUTSIDE RECORDS SUMMARY | 2024-07-21 11:30 | XMS_ITS | Encounter Summary ---
[place] [address] Care Team Providers Care Airfield Manager Name Role Phone Bin Bowman MD Primary Care Provider [phone] Encounter Details Date Type Department Care Team (Late st Contact Info) Description 12/21/2020 [place] [phone] Cynthia Wild Social History Tobacco Use Types [...] patient. Ordering provider: Dr. Escobar Testing Facility: [facility] Date of Testin/6 Time of Testing: TBD Symptoms: No Is this the first test for Covid 19 No, Dec, Neg, [facility] If no, please list date of previous test, result, and type of test (Molecular, Antigen, Antibody orunknown): Resides in [facility] [place] care setting No Employee or Household Member of Employee No Healthcare Worker No documented in this encounter Plan of Treatment Upcoming Encounters Date Type Department Care Team (Late st Contact Info) Description 09/21/2024 10:[address] [place] [phone] Rachel Carrasco MD [facility] [place] [address] 09/21/2024 11:00 AM EST Office Visit Urology at [place] [phone] Rachel Carrasco MD [facility] [place] [address] documented as of this encounter Visit Diagnoses Diagnosis COVID-19 ruled out documented in this encounter Care Teams Airfield Manager Relationship Specialty Start Date End Date Bin Bowman MD [address] [place] [id number] PCP - General General Internal Medicine 04/21/1707/11 documented as of this encounter
--- OUTSIDE RECORDS SUMMARY | 2024-07-21 11:30 | XMS_ITS | Encounter Summary ---
Author Organization [facility] [place] [address] Care Team Providers Care Display Maker Name Role Phone Bin Bowman MD Primary Care Provider Encounter Details Date Type Department Care Team (Late st Contact Info) Description 01/02/2021 External Results [place] [phone] Social History Tobacco Use Types Packs/Day Years [...] 10:[address] [place] [phone] Rachel Carrasco MD [facility] [place] [address] 09/21/2024 11:00 AM EST [place] [phone] Rachel Carrasco MD [facility] [place] [address] documented as of this encounter Procedures Procedure Name Priority Date/Time Associated Diagnosis Comments ECG SCAN Routine 01/02/2021 documented in this encounter Results * Scan Doc: ECG (01/02/2021) Historical Provider MD WILL[facility]SON MGR SCAN EX T ORDR/RSLT documented in this encounter Visit Diagnoses Not on filedocumented in this encounter Care Teams Display Maker Relationship Specialty Start Date End Date Bin Bowman MD [address] [place] [id number] PCP - General General Internal Medicine 04/21/1707/11 documented as of this encounter
--- OUTSIDE RECORDS SUMMARY | 2024-07-21 11:30 | XMS_ITS | Encounter Summary ---
Author Organization [facility] [place] [address] Care Team Providers Care Bagman/Woman Name Role Phone Bin Bowman MD Primary Care Provider Encounter Details Date Type Department Care Team (Late st Contact Info) Description 01/02/2021 Orders Only Cardiology at [address] [phone] Fadi Escobar MD [facility] [place] [address] Flutter-fibrillation Social History Tobacco Use Types Packs/Day [...] 10:[address] [place] [phone] Rachel Carrasco MD [facility] [place] [address] 09/21/2024 11:00 AM EST Office Visit Urology at [facility] [place] [address] Rachel Carrasco MD [facility] [place] [address] documented as of this encounter Procedures Procedure Name Priority Date/Time Associated Diagnosis Comments ECHOCARDIOGRAM TRANSTHORACIC Routine 01/11/2021 documented in this encounter Results * Echo Transthoracic (Complete) (01/11/2021) Anatomical Region Laterality Modality Other 01/11/2021 Narrative 01/11/2021 8:39 AM EST Amended Report Procedure: ?Transthoracic Echocardiogram Patient: ?Jeff Seth ?(Age): 1970(50y) Med Rec#: ? [id number] ?Sex: ? Site Loc: ? Ht / Wt: ??(cm)/ (kg) ? Pt. Loc: ? Study Date: ?? 01/11/2021 ?Pt. Type: Tape: ? Reading: Khurram Barillas ([id number]) Goat Farmer: LUDY Coating Line Worker: Chintan Gallegos ([id number]) Interpreting Fellow: Chintan Gallegos ([id number]) Diagnosis: SUMMARY: 1. Limited on-call echocardiogram performed [...] 01/11/2021 10:02:13 Images reviewed and interpretation verified [facility] Procedure Note Khurram Barillas MD - 01/11/2021 Amended Report Procedure: Transthoracic Echocardiogram Patient: Jeff MOTT(Age): 1970(50y) [facility] Rec#: [id number] Sex: Site Loc: Ht / Wt: (cm)/ (kg) Pt. Loc: Study Date: 01/11/2021 Pt. Type: Tape: Reading: Khurram Barillas ([id number]) Goat Farmer: [employer] Coating Line Worker: Chintan Gallegos ([id number]) Interpreting Fellow: Chintan Gallegos ([id number]) Diagnosis: SUMMARY: 1. Limited on-call echocardiogram performed [...] 01/11/2021 10:02:13 Images reviewed and interpretation verified [facility] Unknown ECHO ORDERABLES documented in this encounter Visit Diagnoses Diagnosis Flutter-fibrillation Other premature beats documented in this encounter Care Teams Bagman/Woman Relationship Specialty Start Date End Date Bin Bowman MD [address] [address] PCP - General General Internal Medicine 04/21/1707/11 documented as of this encounter
--- OUTSIDE RECORDS SUMMARY | 2024-07-21 11:30 | XMS_ITS | Encounter Summary ---
Author Organization [facility] Address [facility] [place] [address] Care Team Providers Care Small Appliance Assembly Supervisor Name Role Phone Bin Bowman MD Primary Care Provider Encounter Details Date Type Department Care Team (Late st Contact Info) Description 01/02/2021 Telephone Cardiology at [address] [phone] Obdulio Dominique MD [facility] [place] [address] Social History Tobacco Use Types Packs/Day Years [...] to try amiodarone gtt and transfer to [facility]. The above recommendations are based on my conversation with the referring provider. I have not personally interviewed or examined this patient. Obdulio Dominique MD documented in this encounter Plan of Treatment Upcoming Encounters Date Type Department Care Team (Late st Contact Info) Description 09/21/2024 10:[address] [place] [address] Rachel Carrasco MD [facility] [place] [address] 09/21/2024 11:00 AM EST [place] [address] Rachel Carrasco MD [facility] [place] [address] documented as of this encounter Visit Diagnoses Not on filedocumented in this encounter Care Teams Small Appliance Assembly Supervisor Relationship Specialty Start Date End Date Bin Bowman MD [address] [place] [id number] PCP - General General Internal Medicine 04/21/1707/11 documented as of this encounter
--- OUTSIDE RECORDS SUMMARY | 2024-07-21 11:30 | XMS_ITS | Encounter Summary ---
[place] [address] Care Team Providers Care Chemical Test Engineer Name Role Phone Bin Bowman MD Primary Care Provider Reason for Visit * Auth/Cert Specialty Diagnoses / Procedures Referred By Zeyad mishra Referred To Contact Diagnoses SVT (supraventricular tachycardia) [I47.1], PAF (paroxysmal atrial fibrillation) [I48.0] Procedures ELECTROPHYSIOLOGY PROCEDURE TRANSESOPHAGEAL ECHO DURING CATH/EP PROCEDURE Referral ID Status Reason Start Date Expiration Date Visits Re quested Visits Authorized [id number] 1 1 Encounter Details Date Type Department Care Team (Late st Contact Info) Description 01/10/2021 11:10 AM EST Anesthesia Event [place] [address] Zena Calero MD [facility] [place] [address] Anesthesia Record Procedure Summary Procedure Name Responsible [...] CRNA 1746 AN Defib CV @ 200J 1906 Extubation/LMA Out 1908 an stop data 1919 [...] neck; LDA not present upon assessment; 02/15/21; 22107/10/20 0000 by Autumn Dobson RN 02/15/21 221 by Valentin North RN (RETIRED) Peripheral IV Line - Single Lumen 01/10/21; 1055; cephalic vein (lateral side of arm), right; pfgq-rdy-uhhdxo catheter system; 20 gauge, 1 in length; [...] 190501/10/21 1123 by Palomo Brown CRNA 01/10/21 190 by Jesse Garcia CRNA (RETIRED) Peripheral IV Line - Single Lumen 01/10/21; 1134; metacarpal vein (top of hand), left; sdxs-whj-wmdtbj catheter system; 16 gauge; 0; removed per patient; 01/11/21; 1223 01/10/21 1134 by Palomo Brown CRNA 01/11/21 1223 by Miriam Chong RN Arterial Line 01/10/21; 1143; radi al artery; 20 gauge; Kevin; Sterile Prep, Sterile Gloves; catheter not patent; 01/11/21; 2330 01/10/21 1143 by Palomo Brown DATA SYSTEMS ANALYST 01/11/21 2330 by Twyla William RN Urethral [...] LNA LDA Cath/EP Sheath 01/10/21; 1320; 8.5 Kazakh (Fr); Right; Femoral 01/10/21 1320 by Breonna Alcaraz RN 01/10/21 1846 by Breonna Alcaraz RN LDA Cath/EP Sheath 01/10/21; 1325; 8.5 Kazakh (Fr); Right; Femoral 01/10/21 1325 by Breonna [...] EST Department of Anesthesiology Post-procedure Note Patient: oRlo Aguilar Procedure Summary Date: 01/10/21 Room / Location: EP B-LAB ROOM 4 / [facility] EP LABS Anesthesia Start: 111 Anesthesia Stop: 1920 Procedures: ELECTROPHYSIOLOGY PROCEDURE (N/A ) TRANSESOPHAGEAL ECHO DURING CATH/EP PROCEDURE (N/A ) Diagnosis: SVT (supraventricular tachycardia) PAF (paroxysmal atrial fibrillation) (SVT (supraventricular tachycardia) [I47.1], PAF (paroxysmal atrial fibrillation) [I48.0]) Providers: Fadi Escobar MD; Jose Anand MD Responsible Provider: Zena Calero MD Anesthesia Type: general ASA Status: 4 All Anesthesia Providers: Anesthesiologist: Boom Pace MD; Zena Calero MD DATA SYSTEMS ANALYST: Jesse Garcia CRNA; Palomo Brown CRNA Vitals Value Taken Time BP 110/67 01/10/211999 Temp 36.3 ??C (97.3 ??F) 01/10/21 194 Pulse 97 01/10/212009 Resp 19 01/10/212009 SpO2 97 % 01/10/212009 Pain Level 0 01/10/21 1915 Vitals shown include unvalidated device data. Patient Location: PACU/[facility] Level of Consciousness: Awake and [...] tachycardia) Added automatically from request for surgery [id number] ??? Bipolar disorder ??? PAF (paroxysmal atrial fibrillation) Added automatically from request for surgery [id number] ??? Flutter-fibrillation ??? H/O cardiac radiofrequency ablation ??? Coronary disease ?? 2017: STEMI. PCI of OM1. EF 60%. Many ER visits to [facility] after this. ??? Heart palpitations ??? Obesity [...] 16.52) performed by Colt Hewitt MD at [facility] MAIN OR ??? PRO UPPER GI ENDOSCOPY, BIOPSY N/A 12/29/2017 UPPER GASTROINTESTINAL ENDOSCOPY,WITH BIOPSY SINGLE OR MULTIPLE (WRVU 2.49) performed by Yusuf Tucker MD at [facility] ENDOSCOPY ??? PRO UPPER GI ENDOSCOPY, DIAGNOSTIC N/A 12/29/2017 EGD, UPPER GI ENDOSCOPY performed by Yusuf Tucker MD at [facility] ENDOSCOPY ??? TONSILLECTOMY Social History [...] consented to blood products. Plan discussed with DATA SYSTEMS ANALYST. PAT Clinic Note documented in this encounter Plan of Treatment Upcoming Encounters Date Type Department Care Team (Late st Contact Info) Description 09/21/2024 10:[address] [place] [address] Rachel Carrasco MD [facility] [place] [address] 09/21/2024 11:00 AM EST [place] [id number] Rachel Carrasco MD [facility] [place] [address] documented as of this encounter Visit Diagnoses [...] on Fri01/10/21 at 1838, Until Fri01/10/21 at 1928, Anesthesia Intra-op, Routine Given 01/10/2021 6:38 PM [...] on Fri01/10/21 at 1128, Until Fri01/10/21 at 1928, Anesthesia Intra-op, Routine Given 01/10/2021 12:28 PM EST 30 mg Given 01/10/2021 11:28 AM EST 70 mg succinylcholine (Anectine;Quelicin) (20 mg/mL) injection Intravenous, PRN, Starting on Fri01/10/21 at 1121, Until Fri01/10/21 at 1928, Anesthesia Intra-op, Routine Given 01/10/2021 11:21 AM EST 200 mg sugammadex (Bridion) 100 mg/mL injection Intravenous, PRN, Starting on Fri01/10/21 at 1900, Until Fri01/10/21 at 1928, Anesthesia Intra-op, Routine Given 01/10/2021 7:00 PM EST 400 mg documented in this encounter Care Teams Chemical Test Engineer Relationship Specialty Start Date End Date Bin Bowman MD [address] [place] [id number] PCP - General General Internal Medicine 04/21/1707/11 documented as of this encounter
--- OUTSIDE RECORDS SUMMARY | 2024-07-21 11:30 | XMS_ITS | Encounter Summary ---
Author Organization [facility] Address [facility] [place] [address] Care Team Providers Care Delivery Specialist Name Role Phone Bin Bowman MD Primary Care Provider [phone] Encounter Details Date Type Department Care Team (Late st Contact Info) Description 01/02/2021 Telephone Cardiology at [address] [address] Obdulio Dominique MD [facility] [place] [address] Social History Tobacco Use Types Packs/Day Years [...] can start amiodarone gtt and transfer to [facility] for EP evaluation, may need to attempt another cardioversion The above recommendations are based on my conversation with the referring provider. I have not personally interviewed or examined this patient. Obdulio Dominique MD documented in this encounter Plan of Treatment Upcoming Encounters Date Type Department Care Team (Late st Contact Info) Description 09/21/2024 10:[address] [place] [address] Rachel Carrasco MD [facility] [place] [address] 09/21/2024 11:00 AM EST [place] [address] Rachel Carrasco MD [facility] [place] [address] documented as of this encounter Visit Diagnoses Not on filedocumented in this encounter Care Teams Delivery Specialist Relationship Specialty Start Date End Date Bin Bowman MD [address] [place] [phone] PCP - General General Internal Medicine 04/21/1707/11 documented as of this encounter
--- OUTSIDE RECORDS SUMMARY | 2024-07-21 11:30 | XMS_ITS | Encounter Summary ---
Author Organization [facility] Address [facility] [place] [address] Care Team Providers Care Level Glass Forming Machine Operator Name Role Phone Bin Bowman MD Primary Care Provider Encounter Details Date Type Department Care Team (Late st Contact Info) Description 01/02/2021 Telephone Cardiology at [address] [address] Obdulio Dominique MD [facility] [place] [address] Social History Tobacco Use Types Packs/Day Years [...] PM EST Cardiology Telephone Note 01/02/2021 Rolo Rashaun Aguilar is a 50 y.o. male with a history of SVT s/p ablation (07/10/2020), paroxysmal AF (on apixaban),??ASCVD (s/p NSTEMI, EMMY to OM1 in 07/2017), HTN, sleep apnea, RICARDO who was recently hospitalized from [facility] for AFlutter w/ RVR who called [...] patient to have his drive him to [facility] for ECG to identify arrhythmia if that is the underlying issue. From there, further treatment can be performed. Obdulio Dominique MD documented in this encounter Plan of Treatment Upcoming Encounters Date Type Department Care Team (Late st Contact Info) Description 09/21/2024 10:[address] [place] [place] [address] Rachel Carrasco MD [facility] [place] [address] 09/21/2024 11:00 AM EST [place] [address] Rachel Carrasco MD [facility] [place] [address] documented as of this encounter Visit Diagnoses Not on filedocumented in this encounter Care Teams Level Glass Forming Machine Operator Relationship Specialty Start Date End Date Bin Bowman MD [address] [place] [id number] PCP - General General Internal Medicine 04/21/1707/11 documented as of this encounter
--- OUTSIDE RECORDS SUMMARY | 2024-07-21 11:30 | XMS_ITS | Encounter Summary ---
Author Organization [facility] [place] [address] Care Team Providers Care Medical Technician Assistant Name Role Phone Bin Bowman MD Primary Care Provider [phone] Reason for Visit * Auth/Cert Specialty Diagnoses / Procedures Referred By Zeyad mishra Referred To Contact Diagnoses SVT (supraventricular tachycardia) [I47.1], PAF (paroxysmal atrial fibrillation) [I48.0] Procedures ELECTROPHYSIOLOGY PROCEDURE TRANSESOPHAGEAL ECHO DURING CATH/EP PROCEDURE Referral ID Status Reason Start Date Expiration Date Visits Re quested Visits Authorized [id number] 1 1 Encounter Details Date Type Department Care Team (Late st Contact Info) Description 01/11/2021 2:18 PM EST - 01/11/2021 3:18 PM EST [place] [id number] Erich Amato MD [facility] [place] [place] [address] CARDIAC CATHETERIZATION Social History Tobacco Use Types [...] a total of 1.6 LR in the quality control lab tech. He was awakened from anesthesia, extubated and [...] MV E-wave Vmax 0.94 m/sec MV deceleration sccu919.49 msec MV A-wave Vmax 0.66 m/sec MV [...] Normal Mid-Posterolateral Normal Mid-Inferior Normal Mid-Inferoseptal Normal [place]-Septal Normal [place]-Anterior Normal [place]-Lateral Normal [place]-Inferior Normal [place]-Tip Normal TTE 01/12/21 1. A trivial pericardial [...] MV E-wave Vmax 0.52 m/sec MV deceleration regv773.21 msec MV A-wave Vmax 0.41 m/sec MV [...] Normal Mid-Posterolateral Normal Mid-Inferior Normal Mid-Inferoseptal Normal [place]-Septal Normal [place]-Anterior Normal [place]-Lateral Normal [place]-Inferior Normal [place]-Tip Normal Pericardiocentesis 01/11/21 Conclusions: * Successful placement [...] 4:20 PM Jayne Rogel APRN Cardiology at [facility] Arrive at: [facility] Area [phone] 02/05/2021 2:15 PM Mary Daley PA Cardiology at [facility] Arrive at: [facility] [phone] General Instructions DISCHARGE INSTRUCTIONS FOLLOWING YOUR ABLATION [...] [facility]. The patient should be aware and [...] or the Cardiac Electrophysiology Service Triage Nurse ([phone], option 3). Patient Instructions Patient Instructions on [...] Center 01/17/2021 4:20 PM Jayne Rogel APRN [facility] CARD 4A [facility] 02/05/2021 2:15 PM Mary Daley PA [facility] CARD 4A [facility] PCP: Bin Bowman MD @ [phone] General Ophthalmologist: Will be assigned at the next cardiology appt Your Inpatient Medical Team at [facility] Name(s) of your inpatient provider(s): Jose Anand MD- Attending physician Thor Wills MD- Clinical Data Analyst Harini Jansen MD-Resident Physician Chavo Dominguez MD- Crotch Breaker Physician Call your doctor if: Chest pain, shortness of breath, pain or swelling in legs occurs. If you have non-emergent questions between now and the time of your follow up appointments: During 8am-5pm Friday through Friday call [phone] to speak with a nurse in the cardiology clinic All other times call [phone] and ask to speak to the systematic theology professor registration rep. For questions regarding this document or issues relating to this hospitalization on the Medical Service, please contact your inpatient physician through the [facility] Trimmer Machine . Issues afterhours and on weekends will be handled by the General Ophthalmologist staff on-call. documented in this encounter Discharge Instructions * Discharge Instructions* Delisa Maria M Andie, BABAK - 01/12/2021 4:04 PM EST DISCHARGE [...] or the Cardiac Electrophysiology Service Triage Nurse ([phone], option 3). * Patient Instructions* Harini Jansen [...] Center 01/17/2021 4:20 PM Jayne Rogel APRN [facility] CARD 4A [facility] 02/05/2021 2:15 PM Mary Daley PA [facility] CARD 4A [facility] PCP: Bin Bowman MD @ [phone] General Ophthalmologist: Will be assigned at the next cardiology appt Your Inpatient Medical Team at [facility] Name(s) of your inpatient provider(s): Jose Anand MD- Attending physician Thor Wills MD- Clinical Data Analyst Harini Jansen MD-Resident Physician Chavo Dominguez MD- Crotch Breaker Physician Call your doctor if: Chest pain, shortness of breath, pain or swelling in legs occurs. If you have non-emergent questions between now and the time of your follow up appointments: During 8am-5pm Friday through Friday call [phone] to speak with a nurse in the cardiology clinic All other times call [phone] and ask to speak to the systematic theology professor registration rep. documented in this encounter Medications at Time [...] Physical Therapy: 20 NAYAN GUERRERO PT Pager: [phone] Physical Therapy Inpatient Rehabilitation Department * Tess [...] IVs and tele removed. Pt brought to [facility] in wheelchair by staff with belongings. * [...] Dr. Jansen. Jose Anand MD, MPH, RPVI, [facility] Pager [phone] Cardiovascular Practice RepresentativeWhat Job Titles Meanmachine [place] [address] * Mahogany Ferreira OT - 01/13/2021 12:16 PM EST Occupational Therapy Note 01/13/21 1214 OT Time and Intention Document Type contact Total Minutes, Occupational Therapy 0 Comment, Session Not Performed Order received. Chart reviewed. Spoke with both RN and PT. No acute OT needs. Pt mobilizing independently/supervised, and managing own ADLs. Will sign off. Mahogany Ferreira OTR Pager [phone] * Nilsa Goldstein MD - 01/13/2021 10:45 AM EST Inpatient Cardiology Progress Note Patient Name: Rolo Aguilar Responsible Attending: Jose Anand MD EP Attending: Nilsa Goldstein MD Reason for continued hospitalization: Evaluation and management of pericardial effusion post ablation Active Problems: Active Hospital Problems Diagnosis ??? SVT (supraventricular tachycardia) Added automatically from request for surgery [id number] ??? PAF (paroxysmal atrial fibrillation) Added automatically from request for surgery [id number] ??? H/O cardiac radiofrequency ablation Resolved Hospital [...] HR: SR 70-100 with intermittent SVT/ atrial omjaqavybet639-394 bpm. Meds: Scheduled Meds: ??? metoprolol tartrate [...] 42.2 PLATELET 122* 179 224 Recent Labs 01/10/215 INR 1.4 Recent Labs 01/13/2152901/12/21 0355 01/11/21 [...] 1 month after Zio. Maria M Hercules, POLITICAL RESEARCHER 01/13/2021 Pager: [phone] Addendum Stable, overall condition appears to have [...] Note: Added automatically from request for surgery [id number] ??? Bipolar disorder ??? PAF (paroxysmal atrial fibrillation) Overview Note: Added automatically from request for surgery [id number] ??? Flutter-fibrillation ??? H/O cardiac radiofrequency ablation ??? Coronary disease Overview Note: ?? 2017: STEMI. PCI of OM1. EF 60%. Many ER visits to [facility] after this. ??? Heart [...] EKG - sinus rhythm rate 96 bpm. OK 154ms, QRS 94ms, QT 354 ms, QTc [...] with Dr. Escobar for results. Maria M Andie Delisa, POLITICAL RESEARCHER 01/12/2021 Pager: [phone] Cardiac Electrophysiology Attending This patient was seen [...] (WRVU 11.47) performed by Colt Hewitt MD [facility] MAIN OR ??? PRO UNLISTED LAPAROSCOPIC PX LVR N/A 07/21/2018 LAPAROSCOPIC LIVER BIOPSY (WRVU 16.52) performed by Colt Hewitt MD at [facility] MAIN OR ??? PRO UPPER GI ENDOSCOPY, BIOPSY N/A 12/29/2017 UPPER GASTROINTESTINAL ENDOSCOPY,WITH BIOPSY SINGLE OR MULTIPLE (WRVU 2.49) performed by Yusuf Tucker MD at [facility] ENDOSCOPY ??? PRO UPPER GI ENDOSCOPY, DIAGNOSTIC N/A 12/29/2017 EGD, UPPER GI ENDOSCOPY performed by Yusuf Tucker MD at [facility] ENDOSCOPY ??? TONSILLECTOMY Active Non-Hospital Problems Diagnosis ??? Bipolar disorder ??? Flutter-fibrillation ??? Coronary disease ??? Heart palpitations ??? Obesity ??? Essential hypertension Social History: Pt resides with and mother in a house with 5 stairs to enter with L sided railing. Pt has a flt to basement where he resides with L sided railing. 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 Precautions/Special Considerations: Fall risk, lobato,chest tube,PIV,significant [...] Physical Therapy: 40 Macey Alarcon, PT Pager: [phone] Physical Therapy Inpatient Rehabilitation Department * Mark [...] return later. Will continue to follow. CARMELO Souza/Andie Pager: [phone] * Jose Anand MD - 01/12/2021 7:00 [...] 253 Recent Labs 01/12/21 0355 01/11/21 0740 01/10/215 NA 135 134* 138 K 5.0 4.9 4.3 CL 104 104 107 CO2 22 19* 18* BUN 18 15 15 CREATININE 0.91 0.86 0.89 Recent Labs 01/11/21 0640 01/10/21 215 AST 47* 46* ALT 40 40 ALKPHOS [...] Dr. Dominguez. Jose Anand MD, MPH, RPVI, [facility] Pager [phone] Cardiovascular Practice RepresentativeWhat Job Titles Meanmachine [place] [address] * Nayan William RN - 01/12/2021 6:15 AM EST Loss of arterial line overnight. MD notified. Line d/c'd by FLAVIA Gregory, pressure held by this mortgage loan underwriter. Non-invasive BP remains WNL. Pain [...] that he had been found to havea xizge-jm-gcxjivws size pericardial effusion on echocardiogram during the [...] examined this patient and discussed with the automotive internet sales consultant, resident, fellow. I have personally reviewed the echocardiogram (initial and repeat) and discussed with Fadi Escobar from EP. While no clear evidence of tamponade, we will tap and leave drain in for fluid. Hold anticoagulation fornow. Judy Tijerina MD, Robinson, [facility] Cardiology Attending ID: Rolo Aguilar is a [...] Flores RN - 01/10/2021 7:13 PM EST 3: Rolo Aguilar arrives from EP on bed [...] room. 01/11/2021: 0220: [facility] Plans for transport per protocol on monitor withnurse assist. documented in this encounter H&P Notes * Judy Tijerina MD - 01/10/2021 9:24 PM EST Cardiology Admission History and Physical Patient Name: Rolo Aguilar Service: S1 Team Responsible Attending: Rayo Bianchi MD PCP: Bin Bowman MD PCP phone #: [phone] ID/Chief Complaint: Rolo Aguilar is a 50 [...] a total of 1.6 LR in the quality control lab tech. He was awakened from anesthesia, extubated and [...] ventricular segmental wall motion abnormalities present at [facility] inferolateral wall, as coded in the [...] tachycardia) Added automatically from request for surgery [id number] ??? Bipolar disorder ??? PAF (paroxysmal atrial fibrillation) Added automatically from request for surgery [id number] ??? Flutter-fibrillation ??? H/O cardiac radiofrequency ablation ??? Coronary disease ?? 2017: STEMI. PCI of OM1. EF 60%. Many ER visits to [facility] after this. ??? Heart [...] PLAN: Admit to Cardiology, M1S1 Team Pager #[phone] #Post-Procedural Hypotension #Atrial Flutter s/p ablation #Hx [...] examined this patient and discussed with the automotive internet sales consultant, resident, fellow. Judy Tijerina MD, Robinson, FACC Cardiology Attending * Fadi Escobar MD - 01/10/2021 10:24 AM EST Interval History and Physical Exam: Planned Procedure [facility] CARDIAC ELECTROPHYSIOLOGY LABORATORIES HISTORY OF PRESENT ILLNESS: [...] service was called from pt's Autumn regarding Rloo's recent/frequent hospitalizations for his atrial arrhythmias PM [...] (WRVU 11.47) performed by Colt Hewitt MD [facility] MAIN OR ??? PRO UNLISTED LAPAROSCOPIC PX LVR N/A 07/21/2018 LAPAROSCOPIC LIVER BIOPSY (WRVU 16.52) performed by Colt Hewitt MD at [facility] MAIN OR ??? PRO UPPER GI ENDOSCOPY, BIOPSY N/A 12/29/2017 UPPER GASTROINTESTINAL ENDOSCOPY,WITH BIOPSY SINGLE OR MULTIPLE (WRVU 2.49) performed by Yusuf Tucker MD at [facility] ENDOSCOPY ??? PRO UPPER GI ENDOSCOPY, DIAGNOSTIC N/A 12/29/2017 EGD, UPPER GI ENDOSCOPY performed by Yusuf Tucker MD at [facility] ENDOSCOPY ??? TONSILLECTOMY Accessory Clinical Findings: [...] Procedure Note: Patient Name: Rolo Aguilar : [id number] MR#: [id number] Case Date: 01/11/2021 Trimmer Machine: Surgeon(s) and Role: * Erich Amato MD - Primary * Rachana Silver DO - Fellow Preoperative diagnosis: Pericardial drain placement Postoperative diagnosis: * Pre-tamponade * Procedure(s) performed: Pericardiocentesis Pericardial drain placement Access: Apical chest wall, just below the left breast; six honduran pigtail. A time-out was conducted prior to [...] spouse would be surrogate decision maker per [place] law. (Only good for 90 days) Any patient receiving care at [facility] must abide by [place] law. The hierarchy for surrogate decision making [...] (i) The agent with financial power of contract attorney or a conservator appointed in accordance with RSA 464-A. (j) The guardian of the patient???s estate. Current Functional Ability: Current Functional Status: Independent Functional Status Prior to Admission: Prior Functional Status: Independent Home Environment: People in Home: spouse. Living Arrangements: house. Current DME: None DME Needed at DC: None Home Address Listed as: [address] [place] [id number] Social & Family Supports: Extended Emergency Contact Information Primary Emergency Contact: Autumn Aguilar Address: [address] [place] [id number] [place] [address] Mobile Relation: Spouse Secondary Emergency Contact: Whitney Piedra Address: [address] [address] [facility] Relation: Sibling Community Resources being provided currently: [...] Insurance: N/A Prescription Coverage: yes Preferred Pharmacy: [facility]/pharmacy #[id number] - [place] - [address] [place] [address] [facility] - [place] [address] [facility] [phone] [facility] - [place], [place] [address] [place] [address] [id number] - [place] [address] [facility] [address] [facility] [address] [place] [place] [phone] Primary Care Provider: Bin Bowman MD [phone] Patient/Caregiver Goals of Treatment: DC home Potential [...] of care planning. Chanell Fatima, RN, MSN, settlement technician Office of Care Management Pager: [phone] Work * Brief Op Note - Fadi Escobar MD - 01/10/2021 7:27 PM EST Brief Operative Note Patient Name: Rolo Aguilar : [id number] MR#: [id number] Case Date: 01/10/2021 Surgeon: Surgeon(s) and Role: [...] were issues with initial functionality of the Youtego data Venturocketisiton system, the EP-4 stimulator, and the lateral Moneythink fluoroscopic camera. Reconfigurations, engaging with technical support, [...] rate of 2500 units/hour. The short 8 Bruneian sheaths in the right femoral vein were [...] of 1110 milliseconds (ms) were as follows: OK: 180 ms (P wave duration 140 ms) QRS: 100 ms QT: 480 ms 2) Atrial overdrive pacing was accomplished from the proximal-most bipole in the coronary sinus (CS), and the atrioventricular (AV) Wenckebach block CL was observed at 410 ms. There was no pre-excitation or conduction aberrancy identified. 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 Left Atrial Anatomy and Mapping: A my6sense ThermoCool SF 8 Fr ablation catheter with [...] the targeted [place] a [place] 6[address] Joules during minutes:seconds of actual ablation time, [...] (and/or limitations of familiarity) with the recently installedClCanary mapping system. Mitral Annular Flutter Induction, Mapping, [...] Dose: 681 mGy Total Radiofrequency Energy Delivered: 186232 Joules Total Actual Ablation Time: 50:31 m:s [...] revealed that he had developed a s yqdk-uh-kxahgimd effusion with restricted filling (though not overt right atrial collapse). A pericardiocentesis subsequently was performed with a 300 cc of bloody fluid removed (please see separte report by Erich Amato MD), and the blood pressure reverted to baseline values; a 6 Bruneian pericardial drain was placed, but there was no significant fluid reaccumulation. documented in this encounter Plan of Treatment Upcoming Encounters Date Type Department Care Team (Late st Contact Info) Description 09/21/2024 10:[address] [place] [address] Rachel Carrasco MD [facility] [place] [address] 09/21/2024 11:00 AM EST Office [place] [address] Rachel Carrasco MD [facility] [place] [address] Pending Results Name Type Priority Associated Diagnoses [...] ?ISAAC Rodney ?(Age): 1970(50y) Med Rec#: ? [id number] ?Sex: ?M ? Site Loc: ? [facility] ?Ht / Wt: ??168(cm)/198(kg) Pt. Loc: ?Adult Floor ? BSA: ?2.79 Study Date: ?? 01/13/2021 ?Pt. Type: Inpatient Tape: ? Referring: Jose Anand ??([id number]) Reading: Joss De Anda ([id number]) Celery Tier: Shahriar Juan RDCS, FASE Diagnosis: *Pericardial effusion [...] Vmax ?0.94 ? m/sec ? MV deceleration xftc495.49 ? msec ? MV A-wave Vmax ?0.66 [...] ? Mid-Inferior ?Normal ? Mid-Inferoseptal ?Normal ? [place]-Septal ? Normal ? [place]-Anterior ? Normal ? [place]-Lateral ?Normal ? [place]-Inferior ? Normal ? [place]-Tip ?Normal ? This report has been electronically signed by: Joss De Anda MD ? 01/13/2021 11:37:34 Images reviewed and interpretation verified [facility] Cardiac Ultrasound Laboratory Procedure Note Joss De Anda MD - 01/13/2021 Procedure: Transthoracic Echocardiogram Patient: ISAAC Rodney (Age): 1970(50y) Med Rec#: [id number] Sex: M Site Loc: [facility] Ht / Wt: 168(cm)/198(kg) Pt. Loc: Adult Floor BSA: 2.79 Study Date: 01/13/2021 Pt. Type: Inpatient Tape: Referring: Jose Anand ([id number]) Reading: Joss De Anda ([id number]) Celery Tier: Shahriar Juan RDCS, FASE Diagnosis: *Pericardial effusion [...] MV E-wave Vmax 0.94 m/sec MV deceleration aqgz743.49 msec MV A-wave Vmax 0.66 m/sec MV [...] Normal Mid-Posterolateral Normal Mid-Inferior Normal Mid-Inferoseptal Normal [place]-Septal Normal [place]-Anterior Normal [place]-Lateral Normal [place]-Inferior Normal [place]-Tip Normal This report has been electronically signed by: Joss De Anda MD 01/13/2021 11:37:34 Images reviewed and interpretation verified [facility] Cardiac Ultrasound Laboratory Jose Anand MD ECHO ORDERABLES * EKG 12 Lead (01/13/2021 8:06 AM EST) Pathologist [facility] Ventricular rate 141 BPM MUSE SYSTEM Atrial Rate 141 BPM MUSE SYSTEM P-R Interval 146 ms MUSE SYSTEM QRS Duration 94 ms MUSE SYSTEM Q-T Interval 266 ms MUSE SYSTEM QTC Calculated (Bezet) 407 ms MUSE SYSTEM Calculated P Everton 55 degrees MUSE SYSTEM Calculated R Everton 28 degrees MUSE SYSTEM Calculated T Everton 54 degrees MUSE SYSTEM INTERPRETATION Sinus tachycardia Low voltage QRS Possible Inferior infarct (cited on or before 13-JAN-2021) Abnormal ECG When compared with ECG of 12-JAN-2021 00:07, Diffuse ST-elevations have resolved, and there are now diffuse TWI, consistent with resolving pericarditis Confirmed by MD De Anda Daniel ([id number]) on 01/13/2021 12:29:23 PM MUSE SYSTEM 01/13/2021 8:06 AM EST 01/13/2021 12:29 PM EST Jose Anand MD ECG ORDERABLES MUSE SYSTEM * (ABNORMAL) Differential, Automated (01/13/2021 5:30 AM EST) Pathologist [facility] Neutrophil % 71.0 % [facility] Neutrophil Absolute 8.18(H) 1.70 - 6.10 x10(3)/mc L [facility] Lymph % 16.6 % [facility] Lymphocytes Abs 1.9 0.9 - 3.2 x10(3)/mc L [facility] Monocyte % 10.7 % [facility] Monocyte Abs 1.2(H) 0.3 - 0.9 x10(3)/mc L [facility] Eos % 0.5 % [facility] Eosinophils Abs 0.1 0.0 - 0.4 x10(3)/[facility] Basophil % 0.3 % [facility] Baso Absolute 0.0 0.0 - 0.1 x10(3)/[facility] LABORATORY Immature Gran % 0.90 % [facility] Comment: Immature granulocytes(IG's)percentage and absolute count will include metamyelocytes, myelocytes, and promyelocytes. Blood smears from CBCs yielding IG's will be scanned manually for concordance. If this scan disagrees with the automated IG or if promyelocytes are noted, a manual differential will be performed. Immature Gran Absolute 0.10(H) 0.00 - 0.04 x10(3)/[facility] LABORATORY Blood specimen (specimen) 01/13/2021 5:30 AM EST 01/13/2021 5:44 AM EST Narrative Resulting Agency Comment Spec In Lab Harini Jansen MD HEMATOLOGY ORDERABLE S [facility] [place] [address] * (ABNORMAL) Hemogram (01/13/2021 5:30 AM EST) White Blood Cell 11.5(H) 4.0 - 9.5 x10(3)/[facility] LABORATORY Red Blood Cell 4.11(L) 4.58 - 5.54 x10(6)/ L [facility] Hemoglobin 11.4(L) 13.7 - 16.5 gm/dL [facility] Hematocrit 35.1(L) 40.5 - 48.5 % [facility] Mean Cell Volume 85.4 82.9 - 93.1 fL [facility] Mean Cell Hemoglobin 27.7 27.5 - 32.1 pg [facility] Mean Cell Hemoglobin Concentration 32.5 32.0 - 35.7 gm/dL [facility] Platelet 122(L) 145 - 357 x10(3)/mc L [facility] RDW Standard Deviation 44.7 36.0 - 45.0 fL [facility] RDW coefficient of variation 14.6(H) 11.4 - 13.8 % [facility] Mean Platelet Volume 10.6 7.6 - 12.9 fL [facility] NRBC% auto 0.0 % [facility] NRBC Absolute 0.000 0.000 - 0.000 x10(3)/mc L [facility] Blood specimen (specimen) 01/13/2021 5:30 AM EST 01/13/2021 5:44 AM EST Narrative Resulting Agency Comment Spec In Lab Harini Jansen MD HEMATOLOGY ORDERABLE S Performing Organization Address [facility] Co de Phone Number [facility] [place] [address] * Magnesium (01/13/2021 5:30 AM EST) Magnesium 0.92 0.69 - 1.07 mmol/L [facility] Blood specimen (specimen) 01/13/2021 5:30 AM EST 01/13/2021 5:45 AM EST Narrative Resulting Agency Comment Spec In Lab Jose Anand MD CHEMISTRY ORDERABLES Performing Organization Address [facility] Co de Phone Number [facility] [place] [address] * (ABNORMAL) BMP w/fasting Glucose (01/13/2021 5:30 AM EST) Glucose Fasting 92 65 - 99 mg/dL [facility] Comment: ?Fasting* Glucose Interpretive [...] of Diabetes Mellitus, Position Statement from the [place] [employer]. ??Diabetes Care, Volume 33, Supplement 1, Nov 2009 Blood Urea Nitrogen 14 10 - 20 mg/dL [facility] Creatinine 0.83 0.80 - 1.50 mg/dL [facility] Sodium 135 135 - 145 mmol/L [facility] Potassium 3.8 3.5 - 5.0 mmol/L [facility] Comment: result rechecked- Please note: ??Patients with WBC >100,000 may have falsely elevated Potassium levels. ??For accurate Potassium quantification in these patients send serum separator tube (gold top) for subsequent determinations. ??Contact the Clinical Chemistry Laboratory if there are any questions. Chloride 103 98 - 107 mmol/L [facility] Carbon Dioxide 22 22 - 31 mmol/L [facility] Anion Gap 10 5 - 15 mmol/L [facility] Calcium 8.2(L) 8.5 - 10.5 mg/dL [facility] Est Glomerular Filtration Rate 102 >=60 mL/min/1. 73 m?? [facility] Comment: This patient? s [...] Lab Judy Tijerina MD CHEMISTRY ORDERABLES [facility] [place] [address] * ECHO LMTD W/O CONTRAST W LMTD SPEC DOPP (01/12/2021 11:08 AM EST) EF 70 HEARTLAB SYSTEM Anatomical Region Laterality Modality Other 01/12/2021 Narrative 01/12/2021 11:42 AM EST Procedure: ?Transthoracic Echocardiogram Patient: ?ISAAC Rodney ?(Age): 1970(50y) Med Rec#: ? [id number] ?Sex: ?M ? [place] ? [facility] [place]Ht / Wt: ??168(cm)/198(kg) Pt. Loc: ?Adult Floor ? BSA: ?2.79 Study Date: ?? 01/12/2021 ?Pt. Type: Inpatient Tape: ? Referring: Thor Wills ([id number]) Referring: Judy Tijerina Reading: Roxana Mesa ([id number]) Celery Tier: Willie Dugan [facility] Celery Tier 2: Suzy Randolph Diagnosis: *Pericardial effusion (noninflammatory) [...] ? Mid-Inferior ?Normal ? Mid-Inferoseptal ?Normal ? [place]-Septal ? Normal ? [place]-Anterior ? Normal ? [place]-Lateral ?Normal ? [place]-Inferior ? Normal ? [place]-Tip ?Normal ? This report has been electronically signed by: Roxana Mesa MD ? 01/12/2021 11:42:18 Images reviewed and interpretation verified [facility] Cardiac Ultrasound Laboratory Procedure Note Roxana Mesa MD - 01/12/2021 Procedure: Transthoracic Echocardiogram Patient: ISAAC Rodney (Age): 1970(50y) Med Rec#: [id number] Sex: M [place] Loc: [facility] Ht / Wt: 168(cm)/198(kg) Pt. Loc: Adult Floor BSA: 2.79 Study Date: 01/12/2021 Pt. Type: Inpatient Tape: Referring: Thor Wills ([id number]) Referring: Judy Tijerina Reading: Roxana Mesa ([id number]) Celery Tier: Willie Dugan [facility] Celery Tier 2: Suzy Randolph Diagnosis: *Pericardial effusion (noninflammatory) [...] Normal Mid-Posterolateral Normal Mid-Inferior Normal Mid-Inferoseptal Normal [place]-Septal Normal [place]-Anterior Normal [place]-Lateral Normal [place]-Inferior Normal [place]-Tip Normal This report has been electronically signed by: Roxana Mesa MD 01/12/2021 11:42:18 Images reviewed and interpretation verified [facility] Cardiac Ultrasound Laboratory Judy Tijerina MD ECHO ORDERABLES * Scan, Peripheral Blood (01/12/2021 8:19 AM EST) Pathologist [facility] Plat estimate Normal [facility] RBC Morphology Abnormal [facility] Ovalocytes 1-5 /HPF [facility] Claritza Cells 1-5 /HPF [facility] Vacuolated Neut Present [facility] Blood specimen (specimen) 01/12/2021 8:19 AM EST 01/12/2021 8:36 AM EST Narrative Resulting Agency Comment Spec In Lab Harini Jansen MD HEMATOLOGY ORDERABLE S [facility] [place] [address] * (ABNORMAL) Differential, Automated (01/12/2021 8:19 AM EST) Pathologist [facility] Neutrophil % 71.6 % [facility] Neutrophil Absolute 13.82(H) 1.70 - 6.10 x10(3)/mc L [facility] Lymph % 7.9 % [facility] Lymphocytes Abs 1.5 0.9 - 3.2 x10(3)/mc L [facility] Monocyte % 8.4 % [facility] Monocyte Abs 1.6(H) 0.3 - 0.9 x10(3)/mc L [facility] Eos % 11.3 % [facility] Eosinophils Abs 2.2(H) 0.0 - 0.4 x10(3)/ L [facility] Basophil % 0.2 % [facility] Baso Absolute 0.0 0.0 - 0.1 x10(3)/ L [facility] Immature Gran % 0.60 % [facility] Comment: Immature granulocytes(IG's)percentage and absolute count will include metamyelocytes, myelocytes, and promyelocytes. Blood smears from CBCs yielding IG's will be scanned manually for concordance. If this scan disagrees with the automated IG or if promyelocytes are noted, a manual differential will be performed. Immature Gran Absolute 0.12(H) 0.00 - 0.04 x10(3)/mc L [facility] Blood specimen (specimen) 01/12/2021 8:19 AM EST 01/12/2021 8:36 AM EST Narrative Resulting Agency Comment Spec In Lab Harini Jansen MD HEMATOLOGY ORDERABLE S [facility] [place] [address] * (ABNORMAL) Hemogram (01/12/2021 8:19 AM EST) White Blood Cell 19.3(H) 4.0 - 9.5 x10(3)/mc L [facility] Red Blood Cell 4.48(L) 4.58 - 5.54 x10(6)/mc L [facility] Hemoglobin 12.5(L) 13.7 - 16.5 gm/dL [facility] Hematocrit 38.9(L) 40.5 - 48.5 % [facility] Mean Cell Volume 86.8 82.9 - 93.1 fL [facility] Mean Cell Hemoglobin 27.9 27.5 - 32.1 pg [facility] Mean Cell Hemoglobin Concentration 32.1 32.0 - 35.7 gm/dL [facility] Platelet 179 145 - 357 x10(3)/mc L [facility] RDW Standard Deviation 46.8(H) 36.0 - 45.0 fL [facility] RDW coefficient of variation 14.8(H) 11.4 - 13.8 % [facility] Mean Platelet Volume 9.9 7.6 - 12.9 fL [facility] NRBC% auto 0.0 % [facility] NRBC Absolute 0.000 0.000 - 0.000 x10(3)/mc L [facility] Blood specimen (specimen) 01/12/2021 8:19 AM EST 01/12/2021 8:36 AM EST Narrative Resulting Agency Comment Spec In Lab Harini Jansen MD HEMATOLOGY ORDERABLE S [facility] [place] [address] * Magnesium (01/12/2021 3:55 AM EST) Magnesium 0.95 0.69 - 1.07 mmol/L [facility] Comment:result rechecked-peg Blood specimen (specimen) Venous Draw / Unknown 01/12/2021 3:55 AM EST 01/12/2021 4:03 AM EST Narrative Resulting Agency Comment Spec In Lab Harini Jansen MD CHEMISTRY ORDERABLES [facility] [place] [address] * (ABNORMAL) BMP w/fasting Glucose (01/12/2021 3:55 AM EST) [facility] Signature Glucose Fasting 126(H) 65 - 99 mg/dL [facility] Comment: ?Fasting* Glucose Interpretive [...] of Diabetes Mellitus, Position Statement from the [place] [employer]. ??Diabetes Care, Volume 33, Supplement 1, Nov 2009 Blood Urea Nitrogen 18 10 - 20 mg/dL [facility] Creatinine 0.91 0.80 - 1.50 mg/dL [facility] Sodium 135 135 - 145 mmol/L [facility] Potassium 5.0 3.5 - 5.0 mmol/L [facility] Comment: Please note: ??Patients with WBC >100,000 may have falsely elevated Potassium levels. ??For accurate Potassium quantification in these patients send serum separator tube (gold top) for subsequent determinations. ??Contact the Clinical Chemistry Laboratory if there are any questions. Chloride 104 98 - 107 mmol/L [facility] Carbon Dioxide 22 22 - 31 mmol/L [facility] Anion Gap 9 5 - 15 mmol/L [facility] Calcium 8.2(L) 8.5 - 10.5 mg/dL [facility] Est Glomerular Filtration Rate 97 >=60 mL/min/1. 73 m?? [facility] Comment: This patient? s [...] MD CHEMISTRY ORDERABLES Performing Organization Address City/[facility]/ZIP Co de Phone Number [facility] [place] [address] * EKG 12 Lead (01/12/2021 12:07 AM EST) Ventricular rate 96 BPM MUSE SYSTEM Atrial Rate 96 BPM MUSE SYSTEM P-R Interval 154 ms MUSE SYSTEM QRS Duration 94 ms MUSE SYSTEM Q-T Interval 354 ms MUSE SYSTEM QTC Calculated (Bezet) 447 ms MUSE SYSTEM Calculated P Everton 44 degrees MUSE SYSTEM Calculated R Ever[place] 16 degrees MUSE SYSTEM Calculated T Ever[place] 23 degrees MUSE SYSTEM INTERPRETATION Normal sinus rhythm Diffuse ST elevation, consider early repolarization, pericarditis, or injury Abnormal ECG When compared with ECG of 11-JAN-2021 06:29, Acute pericarditis is suspected. I personally reviewed the tracing and edited the fellows interpretation Confirmed by fellow Fernandez Higuera ([id number]) on 01/12/2021 9:35:13 AM Confirmed by Vini Chanel ([id number]) on 01/12/2021 5:29:51 PM MUSE SYSTEM 01/12/2021 12:0 7 AM EST 01/12/2021 5:29 PM EST Judy Tijerina MD ECG ORDERABLES Performing Organization Address City/[facility]/ZIP Co de Phone Number MUSE SYSTEM * CARDIAC CATHETERIZATION (01/11/2021 2:33 PM EST) Anatomical Region Laterality Modality Other Narrative 01/11/2021 2:49 PM EST ?[facility] ? Cardiac Catheterization/Intervention Report ? Patient Name: Isaac, Rolo M ? Procedure Date: 01/11/2021 ? A #: [id number] ? Primary Physician: Genesis, Erich T ? Case #: [id number] ? File Name: [id number] ? Catheterization Order Number: [id number] ? [facility] ? Final Report [place], [place] ? Patient Name: ? Rolo Aguilar ? ID#: ?[id number] ? : ?1970 ? Procedure Date: ? January 11, 2021 ?Case #: ? [id number] ? Room: ? 5 ? Case Physician: ? Erich Amato M.D. ?Start: ?14:10 ?Fellow: ? Rachana Silver, SuniO. ?Admission: ??01/10/2021 ? Procedures: ?* Pericardiocentesis ?* [...] present for the entire procedure. ?Dr. Erich Amtao M.D. was present during the moderate sedation ?intraservice time as documented by the sedation nurse. ??Case time = 00:13. ?Dr. Erich Amato M.D. performed the pericardiocentesis and ?transthoracic echo . ? Erich Amato M.D. ? Electronically Signed by: Erich Amato M.D. ? Report Finalized: 01/11/2021 ??14:44 ? Procedure Note Erich Amato MD - 01/11/2021 [facility] Cardiac Catheterization/Intervention Report Patient Name: IsaacRolo Procedure Date: 01/11/2021 A #: [id number] Primary Physician: Erich Amato Case #: [id number] File Name: [id number] Catheterization Order Number: [id number] [facility] FinalReport [place], [place] Patient Name: Rolo Aguilar ID#:[id number] :1970 Procedure Date: January 11, 2021 Case [...] * Lactate, whole blood, send to lab [place] (01/11/2021 1:10 PM EST) Pathologist [facility] Lactate WB 2.1 0.5 - 2.2 mmol/L [facility] Blood specimen (specimen) 01/11/2021 1:10 PM EST 01/11/2021 1:25 PM EST Narrative Resulting Agency Comment Spec In Lab Judy Tijerina MD CHEMISTRY ORDERABLES [facility] [place] [address] * ECHO COMPLETE W CONTRAST (01/11/2021 10:21 AM EST) EF 63 HEARTLAB SYSTEM Anatomical Region Laterality Modality Other 01/11/2021 Narrative 01/11/2021 11:10 AM EST Procedure: ?Transthoracic Echocardiogram Patient: ?ISAAC Rodney ?(Age): 1970(50y) Med Rec#: ? [id number] ?Sex: ?M ? Site Loc: ? [facility] ?Ht / Wt: ??167(cm)/185(kg) Pt. Loc: ?Adult Floor ? BSA: ?2.7 Study Date: ?? 01/11/2021 ?Pt. Type: Inpatient Tape: ? Referring: Rayo Bianchi ([id number]) Reading: Khurram Barillas ([id number]) Celery Tier: Viola Moore Celery Tier 2: Humza Wilson ([id number]) Interpreting Fellow: Humza Wilson ([id number]) Diagnosis: *Supraventricular tachycardia (I47.1) *1 vial Optison [...] Vmax ?0.52 ? m/sec ? MV deceleration ahad729.21 ? msec ? MV A-wave Vmax ?0.41 [...] ? Mid-Inferior ?Normal ? Mid-Inferoseptal ?Normal ? [place]-Septal ? Normal ? [place]-Anterior ? Normal ? [place]-Lateral ?Normal ? [place]-Inferior ? Normal ? [place]-Tip ?Normal ? This report has been electronically signed by: Khurram Barillas MD ? 01/11/2021 11:04:46 Images reviewed and interpretation verified [facility] Cardiac Ultrasound Laboratory Procedure Note Khurram Barillas MD - 01/11/2021 Procedure: Transthoracic Echocardiogram Patient: ISAAC Rodney (Age): 1970(50y) Med Rec#: [id number] Sex: M [place] Loc: [facility] Ht / Wt: 167(cm)/185(kg) Pt. Loc: Adult Floor BSA: 2.7 Study Date: 01/11/2021 Pt. Type: Inpatient Tape: Referring: Rayo Bianchi ([id number]) Reading: Khurram Barillas ([id number]) Celery Tier: Viola Moore Celery Tier 2: Humza Wilson ([id number]) Interpreting Fellow: Humza Wilson ([id number]) Diagnosis: *Supraventricular tachycardia (I47.1) *1 vial Optison [...] MV E-wave Vmax 0.52 m/sec MV deceleration [id number] msec MV A-wave Vmax 0.41 m/sec MV [...] Normal Mid-Posterolateral Normal Mid-Inferior Normal Mid-Inferoseptal Normal [place]-Septal Normal [place]-Anterior Normal [place]-Lateral Normal [place]-Inferior Normal [place]-Tip Normal This report has been electronically signed by: Khurram Barillas MD 01/11/2021 11:04:46 Images reviewed and interpretation verified [facility] Cardiac Ultrasound Laboratory Rayo Bianchi MD ECHO [...] * POCT Glucose (01/11/2021 7:45 AM EST) Pathologist [facility] Glucose, POC 136 65 - 199 mg/dL [facility] Comment: Supplemental ranges: <140 mg/dL before meals <180 mg/dL all other times of the day Blood specimen (specimen) 01/11/2021 7:45 AM EST 01/11/2021 7:45 AM EST Judy Tijerina MD POINT [place] [address] * (ABNORMAL) Differential, Automated (01/11/2021 7:40 AM EST) Neutrophil % 85.3 % [facility] Neutrophil Absolute 11.24(H) 1.70 - 6.10 x10(3)/ L [facility] Lymph % 8.5 % [facility] Lymphocytes Abs 1.1 0.9 - 3.2 x10(3)/[facility] Monocyte % 5.5 % [facility] Monocyte Abs 0.7 0.3 - 0.9 x10(3)/[facility] Eos % 0.0 % [facility] Eosinophils Abs 0.0 0.0 - 0.4 x10(3)/[facility] Basophil % 0.1 % [facility] Baso Absolute 0.0 0.0 - 0.1 x10(3)/[facility] Immature Gran % 0.60 % [facility] Comment: Immature granulocytes(IG's)percentage and absolute count will include metamyelocytes, myelocytes, and promyelocytes. Blood smears from CBCs yielding IG's will be scanned manually for concordance. If this scan disagrees with the automated IG or if promyelocytes are noted, a manual differential will be performed. Immature Gran Absolute 0.08(H) 0.00 - 0.04 x10(3)/ L [facility] Blood specimen (specimen) 01/11/2021 7:40 AM EST 01/11/2021 7:58 AM EST Narrative Resulting Agency Comment Spec In Lab Harini Jansen MD [place] [address] * (ABNORMAL) Hemogram (01/11/2021 7:40 AM EST) White Blood Cell 13.2(H) 4.0 - 9.5 x10(3)/[facility] Red Blood Cell 4.87 4.58 - 5.54 x10(6)/[facility] Hemoglobin 13.7 13.7 - 16.5 gm/dL [facility] Hematocrit 42.2 40.5 - 48.5 % [facility] Mean Cell Volume 86.7 82.9 - 93.1 [facility] Mean Cell Hemoglobin 28.1 27.5 - 32.1 pg [facility] Mean Cell Hemoglobin Concentration 32.5 32.0 - 35.7 gm/dL [facility] Platelet 224 145 - 357 x10(3)/[facility] RDW Standard Deviation 45.8(H) 36.0 - 45.0 [facility] RDW coefficient of variation 14.3(H) 11.4 - 13.8 % [facility] Mean Platelet Volume 10.7 7.6 - 12.9 [facility] NRBC% auto 0.0 % [facility] NRBC Absolute 0.000 0.000 - 0.000 x10(3)/[facility] Blood specimen (specimen) 01/11/2021 7:40 AM EST 01/11/2021 7:58 AM EST Narrative Resulting Agency Comment Spec In Lab Harini Jansen MD HEMATOLOGY ORDERABLE S [facility] [place] [address] * (ABNORMAL) BMP w/fasting Glucose (01/11/2021 7:40 AM EST) Glucose Fasting 155(H) 65 - 99 mg/dL [facility] Comment: ?Fasting* Glucose Interpretive [...] of Diabetes Mellitus, Position Statement from the [place] [employer]. ??Diabetes Care, Volume 33, Supplement 1, Nov 2009 Blood Urea Nitrogen 15 10 - 20 mg/dL [facility] Creatinine 0.86 0.80 - 1.50 mg/dL [facility] Sodium 134(L) 135 - 145 mmol/L [facility] Potassium 4.9 3.5 - 5.0 mmol/L [facility] Comment: Please note: ??Patients with WBC >100,000 may have falsely elevated Potassium levels. ??For accurate Potassium quantification in these patients send serum separator tube (gold top) for subsequent determinations. ??Contact the Clinical Chemistry Laboratory if there are any questions. Chloride 104 98 - 107 mmol/L [facility] Carbon Dioxide 19(L) 22 - 31 mmol/L [facility] Anion Gap 11 5 - 15 mmol/L [facility] Calcium 8.1(L) 8.5 - 10.5 mg/dL [facility] Est Glomerular Filtration Rate 100 >=60 mL/min/1. 73 m?? [facility] Comment: This patient? s [...] Tijerina MD CHEMISTRY ORDERABLES Performing Organization Address [facility]/ZIP Co de Phone Number [facility] [place] [address] * (ABNORMAL) Lactate, whole blood, send to lab ([facility] (01/11/2021 7:40 AM EST) [facility] Lactate WB 2.7(H) 0.5 - 2.2 mmol/L [facility] Blood specimen (specimen) 01/11/2021 7:40 AM EST 01/11/2021 8:00 AM EST Narrative Resulting Agency Comment Spec In Lab Judy Tijerina MD CHEMISTRY ORDERABLES Performing Organization Address [facility] Co de Phone Number [facility] [place] [address] * (ABNORMAL) Hepatic Function Panel (01/11/2021 6:40 AM EST) Protein, Total 5.9(L) 6.1 - 8.0 gm/dL [facility] Albumin 3.3 3.2 - 5.2 gm/dL [facility] Aspartate Aminotransferase 47(H) 0 - 39 unit/L [facility] Alanine Aminotransferase 40 0 - 55 unit/L [facility] Alkaline Phosphatase 47 40 - 130 unit/L [facility] Bilirubin, Total 0.4 0.2 - 1.3 mg/dL [facility] Bilirubin, Direct 0.1 0.0 - 0.3 mg/dL [facility] Blood specimen (specimen) Venous Draw / Unknown 01/11/2021 6:40 AM EST 01/11/2021 6:48 AM EST Narrative Resulting Agency Comment Spec In Lab Harini Jansen MD CHEMISTRY ORDERABLES Performing Organization Address [facility] Co de Phone Number [facility] [place] [address] * (ABNORMAL) Troponin (01/11/2021 6:40 AM EST) [facility] Troponin-T 1.06(H) 0.00 - 0.00 ng/mL [facility] [...] ischemia ?? New or presumed new significant BB-[id number]-N wave (ST-T) changes or new left bundle [...] additional sample may be indicated. Reference: Third [place] Definition of Myocardial Infarction. Journal of the [place] [employer] 2012;60:1581-98 Blood specimen (specimen) 01/11/2021 6:40 AM EST 01/11/2021 6:47 AM EST Narrative Resulting Agency Comment Spec In Lab Rayo Bianchi MD CHEMISTRY ORDERABLES Performing Organization Address [facility] Co de Phone Number [facility] [place] [address] * EKG 12 Lead (01/11/2021 6:29 AM EST) Ventricular rate 101 BPM MUSE SYSTEM Atrial Rate 101 BPM MUSE SYSTEM P-R Interval 150 ms MUSE SYSTEM QRS Duration 88 ms MUSE SYSTEM Q-T Interval 360 ms MUSE SYSTEM QTC Calculated (Bezet) 466 ms MUSE SYSTEM Calculated P Ever[place] 46 degrees MUSE SYSTEM Calculated R [place] 47 degrees MUSE SYSTEM Calculated T [place] 29 degrees MUSE SYSTEM INTERPRETATION Sinus tachycardia Low voltage QRS Borderline ECG When compared with ECG of 11-JAN-2021 01:59, (unconfirmed) No significant change was found Confirmed by MD Alecia, Ruperto Moya ([id number]) on 01/11/2021 5:10:03 PM MUSE SYSTEM 01/11/2021 6:29 AM EST 01/11/2021 5:10 PM EST Rayo Biancih MD ECG ORDERABLES Performing Organization Address City/[facility] Co de Phone Number MUSE SYSTEM * Blood culture (01/11/2021 4:51 AM EST) Blood Culture No growth at 5 days. [facility] Blood specimen (specimen) STRUCTURE OF RIGHT HAND / Unknown 01/11/2021 4:51 AM EST 01/11/2021 6:43 AM EST Comment:SET 2 Narrative Resulting Agency Comment Spec In Lab Fadi Escobar MD MICROBIOLOGY - BLOOD ORDERABLES Performing Organization Address [facility] Co de Phone Number [facility] [place] [address] * Blood culture (01/11/2021 4:30 AM EST) Blood Culture No growth at 5 days. [facility] Blood specimen (specimen) STRUCTURE OF RIGHT HAND / Unknown 01/11/2021 4:30 AM EST 01/11/2021 6:44 AM EST Narrative Resulting Agency Comment Spec In Lab Fadi Escobar MD MICROBIOLOGY - BLOOD ORDERABLES Performing Organization Address [facility] Co de Phone Number [facility] [place] [address] * XR Chest One View (01/11/2021 2:13 [...] (ABNORMAL) Lactate, whole blood, send to lab ([facility] (01/11/2021 2:05 AM EST) [facility] Lactate WB 3.5(H) 0.5 - 2.2 mmol/L [facility] Blood specimen (specimen) Venous Draw / Unknown 01/11/2021 2:05 AM EST 01/11/2021 2:14 AM EST Narrative Resulting Agency Comment Spec In Lab Ernie Thrasher MD CHEMISTRY ORDER BELEN [facility] [place] [address] * EKG 12 Lead (01/11/2021 1:59 AM EST) Pathologist [facility] Ventricular rate 96 BPM MUSE SYSTEM Atrial Rate 96 BPM MUSE SYSTEM P-R Interval 148 ms MUSE SYSTEM QRS Duration 84 ms MUSE SYSTEM Q-T Interval 366 ms MUSE SYSTEM QTC Calculated (Bezet) 462 ms MUSE SYSTEM Calculated P Ever[place] 52 degrees MUSE SYSTEM Calculated R [place] 60 degrees MUSE SYSTEM Calculated T Ever[place] 19 degrees MUSE SYSTEM INTERPRETATION Normal sinus rhythm Baseline artifact Normal ECG When compared with ECG of 17-DEC-2020 02:40, Sinus rhythm has replaced Atrial fibrillation I personally reviewed the tracing and edited the fellows interpretation Confirmed by fellow Fernandez Higuera ([id number]) on 01/11/2021 10:24:41 AM Confirmed by Vini Chanel ([id number]) on 01/12/2021 5:28:31 PM MUSE SYSTEM 01/11/2021 1:59 AM EST 01/12/2021 5:28 PM EST Rayo Bianchi MD ECG ORDERABLES MUSE SYSTEM * (ABNORMAL) Differential, Automated (01/10/2021 9:55 PM EST) Neutrophil % 88.7 % [facility] Neutrophil Absolute 14.29(H) 1.70 - 6.10 x10(3)/mc L [facility] Lymph % 8.9 % [facility] Lymphocytes Abs 1.4 0.9 - 3.2 x10(3)/mc L [facility] Monocyte % 1.4 % [facility] Monocyte Abs 0.2(L) 0.3 - 0.9 x10(3)/mc L [facility] Eos % 0.1 % [facility] Eosinophils Abs 0.0 0.0 - 0.4 x10(3)/mc L [facility] Basophil % 0.3 % [facility] Baso Absolute 0.0 0.0 - 0.1 x10(3)/mc L [facility] Immature Gran % 0.60 % [facility] Comment: Immature granulocytes(IG's)percentage and absolute count will include metamyelocytes, myelocytes, and promyelocytes. Blood smears from CBCs yielding IG's will be scanned manually for concordance. If this scan disagrees with the automated IG or if promyelocytes are noted, a manual differential will be performed. Immature Gran Absolute 0.09(H) 0.00 - 0.04 x10(3)/mc L [facility] Blood specimen (specimen) 01/10/2021 9:55 PM EST 01/10/2021 10:01 PM EST Narrative Resulting Agency Comment Spec In Lab Ernie Thrasher MD HEMATOLOGY ORDE RYLIE [facility] [place] [address] * (ABNORMAL) Hemogram (01/10/2021 9:55 PM EST) White Blood Cell 16.1(H) 4.0 - 9.5 x10(3)/ L [facility] Red Blood Cell 4.79 4.58 - 5.54 x10(6)/mc L [facility] Hemoglobin 13.5(L) 13.7 - 16.5 gm/dL [facility] Hematocrit 41.1 40.5 - 48.5 % [facility] Mean Cell Volume 85.8 82.9 - 93.1 fL [facility] Mean Cell Hemoglobin 28.2 27.5 - 32.1 pg [facility] Mean Cell Hemoglobin Concentration 32.8 32.0 - 35.7 gm/dL [facility] Platelet 253 145 - 357 x10(3)/mc L [facility] RDW Standard Deviation 44.0 36.0 - 45.0 [facility] RDW coefficient of variation 14.2(H) 11.4 - 13.8 % [facility] Mean Platelet Volume 10.3 7.6 - 12.9 [facility] NRBC% auto 0.0 % [facility] NRBC Absolute 0.000 0.000 - 0.000 x10(3)/mc L [facility] Blood specimen (specimen) 01/10/2021 9:55 PM EST 01/10/2021 10:01 PM EST Narrative Resulting Agency Comment Spec In Lab Ernie Thrasher MD HEMATOLOGY SCOOTER YOUNGBLOOD Performing Organization Address [facility] Co de Phone Number [facility] [place] [address] * (ABNORMAL) APTT (01/10/2021 9:55 PM EST) Partial Thromboplastin Time 66(H) 25 - 37 sec [facility] Comment: The PTT is NOT appropriate for heparin monitoring. Use the Anti-Xa level for heparin monitoring (HEP UFH) or LMWH monitoring (HEP LMW). A PTT less than 37 seconds generally indicates adequate hemostasis. Blood specimen (specimen) 01/10/2021 9:55 PM EST 01/10/2021 10:01 PM EST Narrative Resulting Agency Comment Spec In Lab Fadi Escobar MD HEMATOLOGY ORDERABLE S Performing Organization Address [facility] de Phone Number [facility] [place] [address] * (ABNORMAL) Prothrombin Time (01/10/2021 9:55 PM EST) Prothrombin Time 15.6(H) 9.4 - 12.5 sec [facility] International Normalization Ratio 1.4 [facility] Comment: An INR [...] Address [facility] Co de Phone Number [facility] [place] [address] * (ABNORMAL) Hepatic Function Panel (01/10/2021 9:55 PM EST) [facility] Protein, Total 6.1 6.1 - 8.0 gm/dL [facility] Albumin 3.3 3.2 - 5.2 gm/dL [facility] Aspartate Aminotransferase 46(H) 0 - 39 unit/L [facility] Alanine Aminotransferase 40 0 - 55 unit/L [facility] Alkaline Phosphatase 51 40 - 130 unit/L [facility] Bilirubin, Total 0.5 0.2 - 1.3 mg/dL [facility] Bilirubin, Direct 0.2 0.0 - 0.3 mg/dL [facility] Blood specimen (specimen) 01/10/2021 9:55 PM EST 01/10/2021 10:01 PM EST Narrative Resulting Agency Comment Spec In Lab Fadi Escobar MD CHEMISTRY ORDERABLES Performing Organization Address [facility] de Phone Number [facility] [place] [address] * (ABNORMAL) Magnesium (01/10/2021 9:55 PM EST) [facility] Magnesium 0.63(L) 0.69 - 1.07 mmol/L [facility] Blood specimen (specimen) 01/10/2021 9:55 PM EST 01/10/2021 10:01 PM EST Narrative Resulting Agency Comment Spec In Lab Fadi Escobar MD CHEMISTRY ORDERABLES Performing Organization Address [facility] Co de Phone Number [facility] [place] [address] * (ABNORMAL) Basic Metabolic Panel (non-fasting) (01/10/2021 9:55 PM EST) [facility] Glucose 171 65 - 199 mg/dL [facility] Comment:Diabetes: >=200 mg/d L plus symptoms Blood Urea Nitrogen 15 10 - 20 mg/dL [facility] Creatinine 0.89 0.80 - 1.50 mg/dL [facility] Sodium 138 135 - 145 mmol/L [facility] Potassium 4.3 3.5 - 5.0 mmol/L [facility] Comment: Please note: ??Patients with WBC >100,000 may have falsely elevated Potassium levels. ??For accurate Potassium quantification in these patients send serum separator tube (gold top) for subsequent determinations. ??Contact the Clinical Chemistry Laboratory if there are any questions. Chloride 107 98 - 107 mmol/L [facility] Carbon Dioxide 18(L) 22 - 31 mmol/L [facility] Anion Gap 13 5 - 15 mmol/L [facility] Calcium 8.1(L) 8.5 - 10.5 mg/dL [facility] Est Glomerular Filtration Rate 99 >=60 mL/min/1. 73 m?? [facility] Comment: This patient? s [...] In Lab Fadi Escobar MD CHEMISTRY ORDERABLES [facility] [place] [address] * ELECTROPHYSIOLOGY PROCEDURE (01/10/2021 6:28 PM EST) [...] Ill pH, POC 7.41 7.35 - 7.45 [facility] pCO2, POC 40 35 - 45 mmHg [facility] pO2, POC 149(H) 85 - 104 mmHg [facility] Base Excess, POC 0.0 -3.0 - 3.0 mmol/L [facility] Bicarbonate, POC 24.8 20.0 - 26.0 mmol/L [facility] Sodium, POC 139 135 - 145 mmol/L [facility] POC Potassium 3.9 3.5 - 5.0 mmol/L [facility] POC Hematocrit 42.0 40.0 - 51.0 % [facility] POC Calc Hgb 14.3 13.7 - 17.5 gm/dL [facility] Comment:The calculation of h emoglobin from hematocrit assumes a normal MCHC. POC Bgas Loc CC LAB [facility] Blood specimen (specimen) 01/10/2021 4:20 PM EST 01/11/2021 9:00 AM EST Jose Anand MD CHEMISTRY ORDERABLES [facility] [place] [address] * COVID-19 PCR (01/10/2021 12:32 PM EST) Pathologist [facility] SARS-CoV-2 RNA (Rapid) Not Detected Not Detected [facility] Comment: This result should [...] using the Simplexa COVID-19 Direct Assay by [employer] as authorized by the FDA issued Emergency [...] Department of Pathology and Laboratory Medicine at [facility], certified under the Clinical Laboratory Improvement Amendments [...] fact sheets at the following FDA website: https://www.fda.gov/medical-devices/yakimrupgbm-nhjrvit-7692-gpwoj-53-ifuhzbxjo- use-a cocycudxfefbu-dqilxte-katdfmp/ckmri-xjohpavpmyb-lrmh SARS-CoV-2 Source [employer] Swab KD [facility] Nasopharyngeal swab (specimen) 01/10/2021 12:32 PM EST 01/10/2021 1:22 PM EST Comment:Symptoms->Surveillan ce Narrative Resulting Agency Comment Spec In Lab Fadi Escobar MD MICROBIOLOGY - GENER AL ORDERABLES [facility] [place] [address] documented in this encounter Visit Diagnoses Not [...] PRN, Starting on 01/13/21 at 1244, Until Fri01/13/21 at 1737, Diarrhea, [...] Discontinued, Routine 2105 (Given - Provider: Nayan William, FLAVIA) 0840 (Given - Provider: Tess Santiago RN)1437 [...] OR OPEN, Routine 1033 (Given - Provider: eTss Santiago RN) heparin (porcine) (5,000 units/1 mL) [...] Hanna Claros RN)0351 (Rate/Dose Change - Provider: Hnana Claros RN)0415 (Rate/Dose Change - Provider: Hanna [...] Gina Carmichael RN)1222 (Restarted - Provider: Gina Carmichael, RN)1341 (JAN Hold - Provider: Admin Adt [...] Nayan William RN) 0322 (Given - Provider: Nayna William RN) atropine (0.1 mg/mL) injection 1 [...] Admin Adt)2107 (Given - Provider: Nayan William, RN) 0848 (Given - Provider: Tess Santiago, RN) fentaNYL (pf) (50 mcg/mL) multi-dose injection (CANCELED) ONCE PRN, Starting on Candi 01/11/21 at 1412, Until Candi 01/11/21 at 1433, Intra-Operative (Intra-Procedure), Routine 1412 (Given - Provider: Jonathon Jimenez, RN)1416 (Given - Provider: Jonathon Jimenez RN)1420 (Given - Provider: Elle Sherman RN) HYDROmorphone (Dilaudid) (1 mg/mL) injection syringe 0.4 mg (CANCELED) 0.4 mg, Intravenous, EVERY 4 HOURS PRN, Starting on Candi 01/11/21 at 1727, Until Fri01/12/21 at 0004, Pain, Routine 1749 (Given - Provider: Tess Santiago, FLAVIA)2214 (Given - Provider: Nayan William, FLAVIA) HYDROmorphone (Dilaudid) (1 mg/mL) injection syringe 0.4 mg 0.4 mg, Intravenous, EVERY 2 HOURS PRN, Starting on 01/12/21 at 0022, Until 01/13/21 at 1737, Pain, Routine 0100 (Given - Provider: Nayan William, FLAVIA)0323 (Given - Provider: Nayan William, RN)0521 (Given - Provider: Nayan William, RN)1014 (Given - Provider: Tess Santiago, RN)2102 (Given - Provider: Nayan William, FLAVIA) lidocaine (Xylocaine) 1% (10 mg/mL) injection 3 mg 3 mg (0.3 mL), Subcutaneous, ONCE PRN, 1 dose, Starting on 01/10/21 at 2123, Until 01/13/21 at 1737, for discomfort with PIV insertion, Recovery (Recovery-Hospital Unit), Routine lidocaine (Xylocaine) 1% (10 mg/mL) injection (CANCELED) ONCE PRN, Starting on Candi 3 at 1401, Until Candi 321 at 1433, Cath (Intra-Procedure), Routine 1401 (Given - Provider: Rachana Silver, DO - Comment: Left lateral chest wall) loperamide (Imodium A-D) capsule 4 mg 4 mg, Oral, 4 TIMES DAILY PRN, Starting on 01/13/21 at 1244, Until Sat 3 at 1737, Diarrhea, Do not exceed 16 mg/day., Routine 1341 (Given - Provider: Tess Santiago RN) midazolam (pf) (Versed) (1 mg/mL) injection 1 mg 1 mg, Intravenous, Administer over 4 Hours, EVERY 1 HOUR PRN, 2 doses, Starting on Candi 3 at 1946, Until 01/13/21 at 1737, For sheath removal, May repeat once while in Cath Recovery Unit., Cath (Recovery-Hospital Unit), Routine midazolam (pf) (Versed) (1 mg/mL) multi-dose injection (CANCELED) ONCE PRN, Starting on Candi 3 at 1401, Until Candi 3 at 1433, Cath (Intra-Procedure), Routine 1401 (Given - Provider: Jonathon Jimenez RN)1416 (Given - Provider: Jonathon Jimenez RN)1421 (Given - Provider: Jonathon Jimenez, FLAVIA) nitroGLYcerin (Nitrostat) disintegrating tablet 0.4 mg [...] patch documented in this encounter Care Teams Medical Technician Assistant Relationship Specialty Start Date End Date Bin Bowman MD [address] [place] [phone] PCP - General General Internal Medicine 04/21/1707/11 documented as of this encounter
--- OUTSIDE RECORDS SUMMARY | 2024-07-21 11:30 | XMS_ITS | Encounter Summary ---
[place] [address] Care Team Providers Care Machine Sprayer Name Role Phone Bin Bowman MD Primary Care Provider [phone] Reason for Visit * Reason Onset Date Comments Follow-up 01/04/2021 Encounter Details Date Type Department Care Team (Late st Contact Info) Description 01/04/2021 Telephone Cardiology at [address] [phone] Lennie Garcia, RN Follow-up Social History Tobacco [...] Was able to get confirmation by EP chemistry laboratory technicianlaboratory technologist & Dr. Escobar to move forward with [...] 10:[address] [place] [address] Rachel Carrasco MD [facility] [address] 09/21/2024 11:00 AM EST Office [place] [address] Rachel Carrasco MD [facility] [place] [address] documented as of this encounter Visit Diagnoses Not on filedocumented in this encounter Care Teams Machine Sprayer Relationship Specialty Start Date End Date Bin Bowman MD [address] [place] [id number] PCP - General General Internal Medicine 04/21/1707/11 documented as of this encounter
--- OUTSIDE RECORDS SUMMARY | 2024-07-21 11:30 | XMS_ITS | Encounter Summary ---
[place] [address] Care Team Providers Care Core Winding Operator Name Role Phone Bin Bowman MD Primary Care Provider Reason for Visit * Auth/Cert Specialty Diagnoses / Procedures Referred By Zeyad mishra Referred To Contact Diagnoses SVT (supraventricular tachycardia) [I47.1], PAF (paroxysmal atrial fibrillation) [I48.0] Procedures ELECTROPHYSIOLOGY PROCEDURE TRANSESOPHAGEAL ECHO DURING CATH/EP PROCEDURE Referral ID Status Reason Start Date Expiration Date Visits Re quested Visits Authorized [id number] 1 1 Encounter Details Date Type Department Care Team (Latest Contact Info) Description 01/11/2021 5:20 AM EST - 01/11/2021 11:59 PM EST Hospital Encounter Non-[place] [phone] Discharge Disposition: Home Social History Tobacco Use [...] 10:[address] [place] [place] [address] [facility] [place] [address] 09/21/2024 11:00 AM EST [place] [phone] [facility] [place] [address] documented as of this encounter Procedures Procedure [...] on Candi 3 at 1021, Until Candi 3 at 1021, for enhancement of sub-optimal echo images, Echo Lab (Intra-Procedure), Routine Given 01/11/2021 10:21 AM EST 0.5 mLs documented in this encounter Care Teams Core Winding Operator Relationship Specialty Start Date End Date Bin Bowman MD [address] [place] [id number] PCP - General General Internal Medicine 04/21/1707/11 documented as of this encounter
--- OUTSIDE RECORDS SUMMARY | 2024-07-21 11:31 | XMS_ITS | Encounter Summary ---
Author [facility] [place] [address] Care Team Providers Care Cellular Biologist Name Role Phone Bin Bowman MD Primary Care Provider [phone] Encounter Details Date Type Department Care Team (Late st Contact Info) Description 12/15/2020 [place] [address] Joss Painter MD [facility] [place] [address] Social History Tobacco Use Types Packs/Day Years [...] above) ??3)?Coronary artery disease >?July 2017 at [facility]: Non-STEMI (EMMY of OM1) >?LVEF [...] daily. He is symptomatic with palpitations. VS: [id number] ?? All covid questions: negative?? Tested yesterday [...] 10:[address] [place] [phone] Rachel Carrasco MD [facility] [address] 09/21/2024 11:00 AM EST [place] [phone] Rachel Carrasco MD [facility] [address] documented as of this encounter Visit Diagnoses Not on filedocumented in this encounter Care Teams Cellular Biologist Relationship Specialty Start Date End Date Bin Bowman MD [address] [place] [address] PCP - General General Internal Medicine 04/21/1707/11 documented as of this encounter
--- OUTSIDE RECORDS SUMMARY | 2024-07-21 11:31 | XMS_ITS | Encounter Summary ---
Author Organization [facility] [place] [address] Care Team Providers Care Aircraft Engine Cylinder Mechanic Name Role Phone Bin Bowman MD Primary Care Provider Reason for Visit * Reason Onset Date Comments Medication Refill 07/11/2020 Encounter Details Date Type Department Care Team (Late st Contact Info) Description 07/11/2020 Refill Cardiology at [address] [phone] Mary Daley PA [facility] [place] [address] Medication Refill Social History Tobacco Use Types [...] 10:[address] [place] [phone] Rachel Carrasco MD [facility] [place] [address] 09/21/2024 11:00 AM EST Office [place] [address] Rachel Carrasco MD [facility] [place] [address] documented as of this encounter Visit Diagnoses Diagnosis Coronary disease Essential hypertension Unspecified essential hypertension Heart palpitations Palpitations documented in this encounter Care Teams Aircraft Engine Cylinder Mechanic Relationship Specialty Start Date End Date Bin Bowman MD [address] [place] [id number] PCP - General General Internal Medicine 04/21/1707/11 documented as of this encounter
--- OUTSIDE RECORDS SUMMARY | 2024-07-21 11:31 | XMS_ITS | Encounter Summary ---
Author Organization [facility] [place] [address] Care Team Providers Care Fruit Loader Machine Operator Name Role Phone Bin Bowman MD Primary Care Provider Encounter Details Date Type Department Care Team (Late st Contact Info) Description 12/16/2020 External Results [facility] [place] [phone] Social History Tobacco Use Types Packs/Day Years [...] 10:[address] [place] [phone] Rachel Carrasco MD [facility] [place] [address] 09/21/2024 11:00 AM EST Office [place] [phone] Rachel Carrasco MD [facility] [place] [address] documented as of this encounter Procedures Procedure Name Priority Date/Time Associated Diagnosis Comments ECG SCAN Routine 12/16/2020 documented in this encounter Results * Scan Doc: ECG (12/16/2020) Historical Provider MD [facility] MGR SCAN EX T ORDR/RSLT documented in this encounter Visit Diagnoses Not on filedocumented in this encounter Care Teams Fruit Loader Machine Operator Relationship Specialty Start Date End Date Bin Bowman MD [address] [place] [phone] PCP - General General Internal Medicine 04/21/1707/11 documented as of this encounter
--- OUTSIDE RECORDS SUMMARY | 2024-07-21 11:31 | XMS_ITS | Encounter Summary ---
Author Organization [facility] [place] [address] Care Team Providers Care Search Optimization Analyst Name Role Phone Bin Bowmna MD Primary Care Provider Reason for Visit * Auth/Cert Specialty Diagnoses / Procedures Referred By Zeyad mishra Referred To Contact Diagnoses . Procedures ELECTROPHYSIOLOGY PROCEDURE Referral ID Status Reason Start Date Expiration Date Visits Re quested Visits Authorized [id number] 1 1 Encounter Details Date Type Department Care Team (Late st Contact Info) Description 07/10/2020 8:30 AM EDT - 07/10/2020 3:29 PM EDT Surgery [place] [address] Fadi Escobar MD [facility] [place] [address] ELECTROPHYSIOLOGY PROCEDURE Social History Tobacco Use Types [...] Rolo Aguilar Patient Age: 49 y.o. Language: Citizen Of [place] Race: White Ethnicity: Not nor Admit date: 07/10/2020 Discharge date and time: 07/11/2020 Attending Physician: Fadi Escobar MD Discharge Physician: Fadi Escobar MD Follow-up Recommendations for Providers: - s/p CTI ablation (atrial flutter ablation) - follow-up with EP in ~3 months Inpatient Provider Contact Information: Cardiac Electrophysiology - Weekends and holidays call [phone]; ask for alteration specialist neuropsychology medical consultant. Discharge Diagnoses (Hospital Problems) and Secondary Diagnoses [...] his/her physician or the Cardiac Electrophysiology Service ([phone]). Cardiac Electrophysiology Attending This patient was reviewed with Mr. Kahn and Dr. De Anda. I discussed procedural results and findings with Mr. Aguilar, and recommended follow up in ~3 months (sooner prn) after he wears a Zio monitor and results are available. If insurance in [place] fails to cover the cost of the [...] his/her physician or the Cardiac Electrophysiology Service ([phone]). documented in this encounter Medications at Time [...] OM1. EF 60%. Many ER visits to [facility] after this. ??? Heart palpitations [...] contact EP with any further questions (pager [phone]). SONNY Grover 07/11/2020 Pager: [phone] * Justa Rider RN - 07/10/2020 10:29 PM EDT 21:30 Pt [...] Interval History and Physical Exam: Planned Procedure [facility] CARDI[facility] ELECTROPHYSIOLOGY LABORATORIES HISTORY OF PRESENT ILLNESS: Rolo Aguilar is a 49 y.o. male with multiple symptomatic dysrhythmias recently. April 27 to the Emergency Department in [facility] with an episode of supraventricular tachycardia (SVT) [...] 11.47) performed by Colt Hewitt MD [facility] MAIN OR ??? PRO UNLISTED LAPAROSCOPIC PX LVR N/A 07/21/2018 LAPAROSCOPIC LIVER BIOPSY (WRVU 16.52) performed by Colt Hewitt MD at [facility] MAIN OR ??? PRO UPPER GI ENDOSCOPY, BIOPSY N/A 12/29/2017 UPPER GASTROINTESTINAL ENDOSCOPY,WITH BIOPSY SINGLE OR MULTIPLE (WRVU 2.49) performed by Yusuf Tucker MD at [facility] ENDOSCOPY ??? PRO UPPER GI ENDOSCOPY, DIAGNOSTIC N/A 12/29/2017 EGD, UPPER GI ENDOSCOPY performed by Yusuf Tucker MD at [facility] ENDOSCOPY Accessory Clinical Findings: Laboratory [...] service for dysrythmnia. He is insured through [place] Medicaid with prescription coverage. Per discussion with [...] 10:[address] [place] [address] Rachel Carrasco MD [facility] [place] [address] 09/21/2024 11:00 AM EST [place] [address] Rachel Carrasco MD [facility] [address] Scheduled Orders Name Type Priority Associated Diagnoses [...] (Bezet) 426 ms MUSE SYSTEM Calculated P [place] 27 degrees MUSE SYSTEM Calculated R [place] 29 degrees MUSE SYSTEM Calculated T [place] 18 degrees MUSE SYSTEM INTERPRETATION Normal sinus rhythm Normal ECG When compared with ECG of 16-JUL-2017 06:45, T wave inversion less evident in Inferior leads Nonspecific T wave abnormality no longer evident in Lateral leads I personally reviewed the tracing and edited the fellows interpretation Confirmed by fellow Humza Wilson ([id number]) on 07/10/2020 11:25:10 AM Confirmed by MD Cheng, Jose ([id number]) on 07/10/2020 2:19:23 PM MUSE SYSTEM 07/10/2020 8:14 AM EDT 07/10/2020 2:19 PM EDT Fadi Escobar MD ECG ORDERABLES MUSE SYSTEM * Differential, Automated (07/10/2020 7:38 AM EDT) Pathologist [facility] Neutrophil % 57.6 % [facility] Neutrophil Absolute 5.69 1.70 - 6.10 x10(3)/[facility] LABORATORY Lymph % 31.6 % [facility] Lymphocytes Abs 3.1 0.9 - 3.2 x10(3)/[facility] LABORATORY Monocyte % 7.6 % [facility] Monocyte Abs 0.8 0.3 - 0.9 x10(3)/[facility] LABORATORY Eos % 2.2 % [facility] Eosinophils Abs 0.2 0.0 - 0.4 x10(3)/[facility] LABORATORY Basophil % 0.6 % [facility] Baso Absolute 0.1 0.0 - 0.1 x10(3)/[facility] LABORATORY Immature Gran % 0.40 % [facility] Comment: Immature granulocytes(IG's)percentage and absolute count will include metamyelocytes, myelocytes, and promyelocytes. Blood smears from CBCs yielding IG's will be scanned manually for concordance. If this scan disagrees with the automated IG or if promyelocytes are noted, a manual differential will be performed. Immature Gran Absolute 0.04 0.00 - 0.04 x10(3)/[facility] LABORATORY Blood specimen (specimen) 07/10/2020 7:38 AM EDT 07/10/2020 7:55 AM EDT Narrative Resulting Agency Comment Spec In Lab Fadi Escobar MD HEMATOLOGY ORDERABLE S [facility] [place] [address] * (ABNORMAL) Hemogram (07/10/2020 7:38 AM EDT) White Blood Cell 9.9(H) 4.0 - 9.5 x10(3)/mc L [facility] Red Blood Cell 5.29 4.58 - 5.54 x10(6)/mc L [facility] Hemoglobin 15.6 13.7 - 16.5 gm/dL [facility] Hematocrit 47.3 40.5 - 48.5 % [facility] Mean Cell Volume 89.4 82.9 - 93.1 fL [facility] Mean Cell Hemoglobin 29.5 27.5 - 32.1 pg [facility] Mean Cell Hemoglobin Concentration 33.0 32.0 - 35.7 gm/dL [facility] Platelet 208 145 - 357 x10(3)/ L [facility] RDW Standard Deviation 41.3 36.0 - 45.0 fL [facility] RDW coefficient of variation 12.5 11.4 - 13.8 % [facility] Mean Platelet Volume 10.7 7.6 - 12.9 fL [facility] NRBC% auto 0.0 % [facility] NRBC Absolute 0.000 0.000 - 0.000 x10(3)/mc L [facility] Blood specimen (specimen) 07/10/2020 7:38 AM EDT 07/10/2020 7:55 AM EDT Narrative Resulting Agency Comment Spec In Lab Fadi Escobar MD HEMATOLOGY ORDERABLE S Performing Organization Address City/State/[facility] Co de Phone Number [facility] [place] [address] * (ABNORMAL) BMP w/fasting Glucose (07/10/2020 7:38 AM EDT) Glucose Fasting 113(H) 65 - 99 mg/dL [facility] [...] of Diabetes Mellitus, Position Statement from the [place] [employer]. ??Diabetes Care, Volume 33, Supplement 1, Nov 2009 Blood Urea Nitrogen 13 10 - 20 mg/dL [facility] Creatinine 1.05 0.80 - 1.50 mg/dL [facility] Sodium 140 135 - 145 mmol/L [facility] Potassium 4.7 3.5 - 5.0 mmol/L [facility] Comment: Please note: ??Patients with WBC >100,000 may have falsely elevated Potassium levels. ??For accurate Potassium quantification in these patients send serum separator tube (gold top) for subsequent determinations. ??Contact the Clinical Chemistry Laboratory if there are any questions. Chloride 100 98 - 107 mmol/L [facility] Carbon Dioxide 32(H) 22 - 31 mmol/L [facility] Anion Gap 8 5 - 15 mmol/L [facility] Calcium 10.0 8.5 - 10.5 mg/dL [facility] Est Glomerular Filtration Rate 82 >=60 mL/min/1. 73 m?? [facility] Comment: The eGFR was calculated using the CKD-EPI equation. As with all creatinine based estimates of kidney function, eGFR values calculated with the CKD-EPI equation are not accurate in patients with acute kidney failure, extremes of body mass or the acutely ill. http://Auto Mute/[facility] eGFR 95 >=60 mL/min/1. 73 m?? [facility] Comment: The eGFR was calculated using the CKD-EPI equation. As with all creatinine based estimates of kidney function, eGFR values calculated with the CKD-EPI equation are not accurate in patients with acute kidney failure, extremes of body mass or the acutely ill. http://[employer]/[facility] Blood specimen (specimen) 07/10/2020 7:38 AM EDT 07/10/2020 7:56 AM EDT Narrative Resulting Agency Comment Spec In Lab Fadi Escobar MD CHEMISTRY ORDERABLES [facility] [place] [address] * (ABNORMAL) Prothrombin Time (07/10/2020 7:38 AM EDT) Prothrombin Time 14.0(H) 9.4 - 12.5 sec [facility] International Normalization Ratio 1.2 [facility] Comment: An INR [...] Lab Fadi Escobar MD HEMATOLOGY ORDERABLE S [facility] [place] [address] documented in this encounter Visit Diagnoses Diagnosis [...] 2132 (Given - Provider: Justa Rider RN) 0903 (Given - Provider: Kati Edmonds RN) lamoTRIgine [...] 2139 (Given - Provider: Justa Rider RN) 0900 (Canceled Entry - Provider: Kati Edmonds, FLAVIA - Reason: Contraindicated) Continuous Medication Order 07/09/2020 [...] DO NOT SPLIT, CRUSH OR OPEN, Routine 213 (Given - Provider: Justa Rider RN) 0906 (Given - Provider: Kati Edmonds, FLAVIA) HYDROmorphone (DILAUDID) injection 0.4-0.6 mg (CANCELED) 0.4-0.6 [...] Day of Surgery (Day of Procedure), Routine 08 (Given - Provider: Kinga Hathaway RN) lidocaine [...] Routine documented in this encounter Care Teams Search Optimization Analyst Relationship Specialty Start Date End Date Bin Bowman MD [address] [place] [phone] PCP - General General Internal Medicine 04/21/1707/11 documented as of this encounter
--- OUTSIDE RECORDS SUMMARY | 2024-07-21 11:31 | XMS_ITS | Encounter Summary ---
[place] [address] Care Team Providers Care Provider Relations Advocate Name Role Phone Bin Bowman MD Primary Care Provider Encounter Details Date Type Department Care Team (Late st Contact Info) Description 12/14/2020 Telephone Cardiology at [address] [phone] Teri Bates Social History Tobacco Use Types [...] Call from Esmer @ Dr. Culver office, [facility]. Pt seen in the ED again last night. Started on Joe zhu. Esmer will be faxing updated ED records to us this morning. Would like to move up pt's mapping and ablation date sooner than 01/16/21. LVM for Jose Hogue, RN @ [id number]. Pt has clinic appt with SONNY Hammond on 12/18/20. Teri Teague Electrophysiology Scheduling [id number] option 2 documented in this encounter Plan of Treatment Upcoming Encounters Date Type Department Care Team (Late st Contact Info) Description 09/21/2024 10:[address] [place] [place] [address] Rachel Carrasco MD [facility] [place] [address] 09/21/2024 11:00 AM [place] [phone] Rachel Carrasco MD [facility] [place] [address] documented as of this encounter Visit Diagnoses Not on filedocumented in this encounter Care Teams Provider Relations Advocate Relationship Specialty Start Date End Date Bin Bowman MD [address] [place] [address] PCP - General General Internal Medicine 04/21/1707/11 documented as of this encounter
--- OUTSIDE RECORDS SUMMARY | 2024-07-21 11:31 | XMS_ITS | Encounter Summary ---
Author Organization [facility] [place] [address] Care Team Providers Care Hand Bindery Assembly Worker Name Role Phone Bin Bowman MD Primary Care Provider [phone] Reason for Visit * Reason Onset Date Comments Medication Refill 11/07/2020 Metoprolol Encounter Details Date Type Department Care Team (Late st Contact Info) Description 11/07/2020 Refill Cardiology at [address] [phone] Mary Daley PA [facility] [place] [address] Medication Refill (Metoprolol) Social History Tobacco Use [...] 10:[address] [place] [phone] Rachel Carrasco MD [facility] [place] [address] 09/21/2024 11:00 AM EST Office [place] [address] Rachel Carrasco MD [facility] [place] [address] documented as of this encounter Visit Diagnoses Diagnosis Coronary disease Essential hypertension Unspecified essential hypertension Heart palpitations Palpitations documented in this encounter Care Teams Hand Bindery Assembly Worker Relationship Specialty Start Date End Date Bin Bowman MD [address] [place] [address] PCP - General General Internal Medicine 04/21/1707/11 documented as of this encounter
--- OUTSIDE RECORDS SUMMARY | 2024-07-21 11:31 | XMS_ITS | Encounter Summary ---
Author Organization [facility] [place] [address] Care Team Providers Care Christmas Tree Farm Worker Name Role Phone Bin Bowman MD Primary Care Provider Reason for Visit * Reason Comments Medication Refill Encounter Details Date Type Department Care Team (Late st Contact Info) Description 10/19/2020 Refill Cardiology at [address] [phone] Jeremie Patton MD [facility] [place] [address] Medication Refill Social History Tobacco Use Types [...] 10:[address] [place] [address] Rachel Carrasco MD [facility] UROLOGY [place], [place] [phone] 09/21/2024 11:00 AM EST [place] [address] Rachel Carrasco MD [facility] [place] [address] documented as of this encounter Visit Diagnoses Diagnosis Coronary disease Essential hypertension Unspecified essential hypertension Heart palpitations Palpitations documented in this encounter Care Teams Christmas Tree Farm Worker Relationship Specialty Start Date End Date Bin Bowman MD [address] [place] [address] PCP - General General Internal Medicine 04/21/1707/11 documented as of this encounter
--- OUTSIDE RECORDS SUMMARY | 2024-07-21 11:31 | XMS_ITS | Encounter Summary ---
[place] [address] Care Team Providers Care Web Retailer Name Role Phone Bin Bowman MD Primary Care Provider [phone] Encounter Details Date Type Department Care Team (Late st Contact Info) Description 12/05/2020 Telephone Cardiology at [address] [phone] Ivonne Nicole, RN Social History Tobacco Use [...] Plan to RTC in 1 year with ZIO. No plan for repeat EP study in notes at this time. Advised Mr Aguilar stay on Metoprolol 125mg, BID, per MD orders for now, unless this is changed, by his doctor. The patient indicates understanding of these issues and agrees with the plan. documented in this encounter Plan of Treatment Upcoming Encounters Date Type Department Care Team (Late st Contact Info) Description 09/21/2024 10:[address] [place] [place] [address] Rachel Carrasco MD [facility] [place] [address] 09/21/2024 11:00 AM EST [place] [phone] Rachel Carrasco MD [facility] [place] [address] documented as of this encounter Visit Diagnoses Not on filedocumented in this encounter Care Teams Web Retailer Relationship Specialty Start Date End Date Bin Bowman MD [address] [place] [address] PCP - General General Internal Medicine 04/21/1707/11 documented as of this encounter
--- OUTSIDE RECORDS SUMMARY | 2024-07-21 11:31 | XMS_ITS | Encounter Summary ---
Author Organization [facility] [place] [address] Care Team Providers Care Account Clerk Name Role Phone Bin Bowman MD Primary Care Provider Encounter Details Date Type Department Care Team (Late st Contact Info) Description 12/06/2020 Orders Only Cardiology at [address] [phone] Fadi Escobar MD [facility] [address] SVT (supraventricular tachycardia) Social History Tobacco Use [...] 10:[address] [place] [place] [phone] Rachel Carrasco MD [facility] [place] [address] 09/21/2024 11:00 AM EST [place] [address] Rachel Carrasco MD [facility] [place] [address] documented as of this encounter Visit Diagnoses Diagnosis SVT (supraventricular tachycardia) Other specified cardiac dysrhythmias documented in this encounter Care Teams Account Clerk Relationship Specialty Start Date End Date Bin Bowman MD [address] [place] [address] PCP - General General Internal Medicine 04/21/1707/11 documented as of this encounter
--- OUTSIDE RECORDS SUMMARY | 2024-07-21 11:31 | XMS_ITS | Encounter Summary ---
[place] [address] Care Team Providers Care Lithographic Plate Maker Name Role Phone Bin Bowman MD Primary Care Provider [phone] Encounter Details Date Type Department Care Team (Late st Contact Info) Description 12/16/2020 Telephone Cardiology at [address] [phone] Paul Asher [facility] [address] Social History Tobacco Use Types Packs/Day Years [...] final recs to EP. Siddhartha Asher DO Pipe Roller; PGY-5 12/16/2020 documented in this encounter Plan of Treatment Upcoming Encounters Date Type Department Care Team (Late st Contact Info) Description 09/21/2024 10:[address] [place] [place] [address] Rachel Carrasco MD [facility] [place] [address] 09/21/2024 11:00 AM EST [place] [address] Rachel Carrasco MD [facility] [place] [address] documented as of this encounter Visit Diagnoses Not on filedocumented in this encounter Care Teams Lithographic Plate Maker Relationship Specialty Start Date End Date Bin Bowman MD [address] [place] [id number] PCP - General General Internal Medicine 04/21/1707/11 documented as of this encounter
--- OUTSIDE RECORDS SUMMARY | 2024-07-21 11:31 | XMS_ITS | Encounter Summary ---
Author Organization [facility] [place] [address] Care Team Providers Care Management Information Systems Director Name Role Phone Bin Bowman MD Primary Care Provider Encounter Details Date Type Department Care Team (Late st Contact Info) Description 12/14/2020 Telephone Cardiology at [address] [phone] Obdulio Dominique MD [facility] [place] [address] Social History Tobacco Use Types Packs/Day Years [...] AM [place] [phone] Rachel Carrasco MD [facility] [place] [address] 09/21/2024 11:00 AM EST [place] [address] Rachel Carrasco MD [facility] [place] [address] documented as of this encounter Visit Diagnoses Not on filedocumented in this encounter Care Teams Management Information Systems Director Relationship Specialty Start Date End Date Bin Bowman MD [address] [place] [address] PCP - General General Internal Medicine 04/21/1707/11 documented as of this encounter
--- OUTSIDE RECORDS SUMMARY | 2024-07-21 11:31 | XMS_ITS | Encounter Summary ---
Author Organization [facility] [place] [address] Care Team Providers Care Manager Forms Name Role Phone Bin Bowman MD Primary Care Provider Encounter Details Date Type Department Care Team (Latest Contact Info) Description 09/06/2020 2:00 PM EDT Office Visit Cardiology at [address] [phone] Fadi Escobar MD [facility] [place] [address] H/O cardiac radiofrequency ablation; Coronary disease; Essential [...] Cardenas MD - 09/06/2020 2:00 PM EDT [facility]LECTROPHYSIOLOGY CLINIC REFERRING PROVIDER: Bin Bowman Md [address] [place] [address] PRIMARY CARE PROVIDER: Bin Bowman MD [address] [place] [address] * Fadi Escobar MD - 09/06/2020 2:00 PM EDT Cardiac Electrophysiology [facility] September 06, 2020 (previous telehealth visit May 16, 2020) Drilling And Production Superintendent: Jeremie Patton MD; Jose Culver MD Primary Care Physician: Bin Bowman MD ?? Reason for Visit: Follow up s/p radiofrequency ablation Backgound: Mr. Aguilar is a nice 49 year old gentleman referred by Jose Culver MD, for severalrecent manifestly symptomatic cardiac dysrhythmias. Mr. Aguilar had [facility] with an episode of supraventricular tachycardia (SVT) [...] Coronary artery disease > July 2017 at [facility]: Non-STEMI (EMMY of OM1) > LVEF 55-60% [...] mg sublingual as directed ?? 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 Neurological: Grossly intact. Tests: WePopp Monitor (August 02, 2020; analyzed 13 days [...] detected. Stress Imaging (March 14, 2019; [facility]): Moderate size severely intense fixed inferolateral [...] Electrocardiogram (April 27, 2020): Sinus rhythm 82/minute, [place] 156 m, QRS duration [...] 10:[address] [place] [place] [address] Rachel Carrasco MD [facility] [place] [address] 09/21/2024 11:00 AM EST [place] [phone] Rachel Carrasco MD [facility] [place] [address] documented as of this encounter Procedures Procedure [...] (Bezet) 405 ms MUSE SYSTEM Calculated P [place] 20 degrees MUSE SYSTEM Calculated R [place] 32 degrees MUSE SYSTEM Calculated T [place] 24 degrees MUSE SYSTEM INTERPRETATION Sinus rhythm [...] unspecified documented in this encounter Care Teams Manager Forms Relationship Specialty Start Date End Date Bin Bowman MD [address] [place] [address] PCP - General General Internal Medicine 04/21/1707/11 documented as of this encounter
--- OUTSIDE RECORDS SUMMARY | 2024-07-21 11:31 | XMS_ITS | Encounter Summary ---
[place] [address] Care Team Providers Care Forest Patrolman Name Role Phone Bin Bowman MD Primary Care Provider [phone] Encounter Details Date Type Department Care Team (Late st Contact Info) Description 08/01/2020 Telephone Cardiology at [address] [phone] Fady Lord RN Social History Tobacco Use [...] if pts Medicaid [place] was active then [employer] bills directly to Medicaid, if inactive then the cost is the responsibility of the pt. This information was relayed to the pt and his . If responsible for cost pt would pay $395. This information was confirmed with [employer]. Pt will be in clinictomorrow for Zio patch placement. documented in this encounter Plan of Treatment Upcoming Encounters Date Type Department Care Team (Late st Contact Info) Description 09/21/2024 10:[address] [place] [phone] Rachel Carrasco MD [facility] [place] [address] 09/21/2024 11:00 AM EST Office [place] [phone] Rachel Carrasco MD [facility] [place] [address] documented as of this encounter Visit Diagnoses Not on filedocumented in this encounter Care Teams Forest Patrolman Relationship Specialty Start Date End Date Bin Bowman MD [address] [place] [id number] PCP - General General Internal Medicine 04/21/1707/11 documented as of this encounter
--- OUTSIDE RECORDS SUMMARY | 2024-07-21 11:31 | XMS_ITS | Encounter Summary ---
Author Organization [facility] [place] [address] Care Team Providers Care Inside Sales Associate Name Role Phone Bin Bowman MD Primary Care Provider Encounter Details Date Type Department Care Team (Late st Contact Info) Description 12/16/2020 [place] [address] Humza Wilson MD [facility] [place] [address] Social History Tobacco Use Types Packs/Day Years [...] PM Referring provider: Dr. Ocampo Patient location: [facility] Past medical history: Past Medical History: ??1) ??Supraventricular tachycardia (see above) ??2) ??Atrial tachycardia/fibrillation (see above) ??3)?Coronary artery disease >?July 2017 at [facility] [place]: Non-STEMI (EMMY of [...] 10:[address] [place] [address] Rachel Carrasco MD [facility] [place] [address] 09/21/2024 11:00 AM EST [place] [phone] Rachel Carrasco MD [facility] [place] [address] documented as of this encounter Visit Diagnoses Not on filedocumented in this encounter Care Teams Inside Sales Associate Relationship Specialty Start Date End Date Bin Bowman MD [address] [place] [address] PCP - General General Internal Medicine 04/21/1707/11 documented as of this encounter
--- OUTSIDE RECORDS SUMMARY | 2024-07-21 11:31 | XMS_ITS | Encounter Summary ---
Author Organization [facility] Address [facility] [place] [address] Care Team Providers Care Photographer News Name Role Phone Bin Bowman MD Primary Care Provider [phone] Reason for Visit * Auth/Cert Specialty Diagnoses / Procedures Referred By Zeyad t Referred To Contact Diagnoses . Procedures ELECTROPHYSIOLOGY PROCEDURE Referral ID Status Reason Start Date Expiration Date Visits Re quested Visits Authorized [id number] 1 1 Encounter Details Date Type Department Care Team (Late st Contact Info) Description 07/10/2020 9:53 AM EDT Anesthesia Event [place]rophys[place] [address] Xander Galvez MD [facility] [place] [address] Emanuel Becerra MD [facility] [place] [address] Anesthesia Record Procedure Summary Procedure Name Responsible [...] indicated; 07/11/20; 1045 07/10/20 0000 by Autumn Dobson, FLAVIA 07/11/20 1045 by Marilu Lopez LPN Incision 07/10/20; groin; LDA not present upon assessment; 02/15/21; 2211 07/10/20 0000 by Autumn Dobson RN 02/15/21 221 by Valentin North RN Incision 07/10/20; groin; LDA not present upon assessment; 02/15/21; 221007/10/20 0000 by Autumn Dobson RN 02/15/21 221 by Valentin North RN Incision 07/10/20; neck; LDA not present upon assessment; 02/15/21; 221107/10/20 0000 by Autumn Dobson RN 02/15/21 221 by Valentin North RN (RETIRED) Peripheral IV Line - Single Lumen 07/10/20; 0821; median cubital vein (antecubital fossa), left; jyfi-gls-eiutdi catheter system; 20 gauge; Rivas RN; distraction, [...] 1023; metacarpal vein (top of hand), left; porv-cqi-zbesre catheter system; 18 gauge; [place]; no longer [...] Becker RN 07/11/20 0005 by Gricelda Hernandez Cath/EP Sheath 07/10/20; 1121; 8 Fr ench [...] RN LDA Cath/EP Sheath 07/10/20; 1128; 5.5 Bengali (Fr); Left; Femoral (LFV) 07/10/20 1128 by [...] Procedure Summary Date: 07/10/20 Room / Location: [facility] B-LAB ROOM 4 / [facility] EP LABS Anesthesia Start: 952 Anesthesia Stop: 1650 Procedure: ELECTROPHYSIOLOGY PROCEDURE (N/A ) Diagnosis: SVT (supraventricular tachycardia) Atrial tachycardia Wide-complex tachycardia (.) Provider: Fadi Escobar MD Responsible Provider: Xander Galvez MD Anesthesia Type: general ASA Status: 3 All Anesthesia Providers: Anesthesiologist: Emanuel Becerra MD; Xander Galvez MD IMMIGRATION ASSOCIATE: Xander Hairston CRNA Vitals Value Taken Time BP 113/64 07/10/20 1802 Temp 36.4 ??C (97.5 ??F) 07/10/20 1745 Pulse 70 07/10/20 1821 Resp 16 07/10/20 1730 SpO2 93 % 07/10/20 1821 Pain Level 3 07/10/20 1735 Vitals shown include unvalidated device data. Patient Location: PACU/[facility] Level of Consciousness: Awake and [...] EF 60%. Many ER visits to [facility] after this. ??? Heart palpitations ??? Obesity ??? Essential hypertension No past medical history on file. Past Surgical History: Procedure Laterality Date ??? PRO LAP, CHOLECYSTECTOMY/GRAPH N/A 07/21/2018 LAPAROSCOPIC CHOLECYSTECTOMY WITH CHOLANGIOGRAM (WRVU 11.47) performed by Laycock, Colt S, MD [facility] MAIN OR ??? PRO UNLISTED LAPAROSCOPIC PX LVR N/A 07/21/2018 LAPAROSCOPIC LIVER BIOPSY (WRVU 16.52) performed by Colt Hewitt MD at [facility] MAIN OR ??? PRO UPPER GI ENDOSCOPY, BIOPSY N/A 12/29/2017 UPPER GASTROINTESTINAL ENDOSCOPY,WITH BIOPSY SINGLE OR MULTIPLE (WRVU 2.49) performed by Yusuf Tucker MD at [facility] ENDOSCOPY ??? PRO UPPER GI ENDOSCOPY, DIAGNOSTIC N/A 12/29/2017 EGD, UPPER GI ENDOSCOPY performed by Yusuf Tucker MD at [facility] ENDOSCOPY Social History Tobacco Use ??? [...] Coronary artery disease > July 2017 at [facility]: Non-STEMI (EMMY of OM1) > LVEF 55-60% [...] risks discussed with patient. Plan discussed with IMMIGRATION ASSOCIATE and attending. PAT Clinic Note documented in this encounter Plan of Treatment Upcoming Encounters Date Type Department Care Team (Late st Contact Info) Description 09/21/2024 10:[address] [place] [address] Rachel Carrasco MD [facility] [address] 09/21/2024 11:00 AM EST Office [place] [phone] Rachel Carrasco MD [facility] [place] [address] documented as of this encounter Visit Diagnoses [...] mg documented in this encounter Care Teams Photographer News Relationship Specialty Start Date End Date Bin Bowman MD [address] [address] PCP - General General Internal Medicine 04/21/1707/11 documented as of this encounter
--- OUTSIDE RECORDS SUMMARY | 2024-07-21 11:31 | XMS_ITS | Encounter Summary ---
Author Organization [facility] [place] [address] Care Team Providers Care Lead Technologist In Cytogenetics Name Role Phone Bin Bowman MD Primary Care Provider Reason for Visit * Auth/Cert Specialty Diagnoses / Procedures Referred By Zeyad t Referred To Contact Diagnoses Flutter-fibrillation Afib w/ RVR Procedures EMERGENCY IPI Referral ID Status Reason Start Date Expiration Date Visits Re quested Visits Authorized [id number] 1 1 Encounter Details Date Type Department Care Team (Latest Contact Info) Description 2020 1:31 AM EST - 12/19/2020 1:47 PM EST Hospital Encounter [place] [address] Khurram Barillas MD [facility] [place] [address] Fadi Escobar MD [facility] [place] [address] Coronary disease; Flutter-fibrillatio n Discharge Disposition: Home [...] Rolo Aguilar Patient Age: 50 y.o. Language: Somali Race: White Ethnicity: Not nor Admit date: [...] script with lower dose [facility]). ?? Metoprolol succinate 50 mg [...] in touch with the office, please call [phone]. Inpatient Provider Contact Information: Cardiac Electrophysiology - [...] sleep apnea, RICARDO who was transferred from [facility] due to recurrent A flutter with RVR. Hospital Course: Patient was started at OSH on Amiodarone which was continued inpatient at [facility]. He was loaded on about 4 grams via IV before transitioning to Amiodarone 400 mg BID. 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 IV Amiodarone was stopped [...] script with lower dose will be [facility]). ?? Metoprolol succinate 50 mg [...] in touch with the office, please call [phone]. Important Things to Remember While On Amiodarone [...] checked by your primary health provider or traffic control technician if they are agreeable or by the [facility] Electrophysiology group. Amiodarone is a peculiar [...] sunscreen. Estefanía Page, et al. Heart Rhythm 2007;4:5325-7687 Heart Rhythm Society Amiodarone Monitoring Recommendations Lab [...] depressants meds o Claritin (loratadine) o Zocor >=40mg (simvastatin) o Zantac (ranitidine) - Keep a [...] think there has been an overdose, call ([place] [facility]), your local poison control center [...] doctor or pharmacist. Information was adapted from [employer]???s ???Amiodarone: Patient drug information?? http://www.Lumi[employer]/contents/heuclqqwbl-vuvvtdb-qibu-information?source=surjit _result&search=patient+information+amiodarone&selectedTitle=1~150 Discharge References/Attachments EPS (Electrophysiology Study) and Catheter Ablation: Pre-op (Somali) documented in this encounter Discharge Instructions * [...] depressants meds o Claritin (loratadine) o Zocor >=40mg (simvastatin) o Zantac (ranitidine) - Keep a [...] think there has been an overdose, call ([place] [facility]), your local poison control center [...] doctor or pharmacist. Information was adapted from [employer]???s ???Amiodarone: Patient drug information?? http://www.[employer]umi[employer]/contents/tvlbwgtlha-xaepdlo-vfyl-information?source=surjit ch_result&search=patient+information+amiodarone&selectedTitle=1~150 * Patient Instructions* Juan Antonio Mathew PA - 12/19/2020 8:38 AM EST DISCHARGE INSTRUCTIONS 1. Medications as listed above. ?? Amiodarone 400 mg tablet: Take 1 tablet by mouth three times daily x 5 days, then one tablet daily x 7 days, then 200 mg (1/2 tablet) daily thereafter (a new script with lower dose will be sent [facility] long-term). ?? Metoprolol succinate 50 mg tablet: [...] in touch with the office, please call [phone]. Important Things to Remember While On Amiodarone [...] checked by your primary health provider or traffic control technician if they are agreeable or by the [facility] Electrophysiology group. Amiodarone is a peculiar [...] the sun or using a sunscreen. Estefanía N, et al. Heart Rhythm 2007;4:0587-2528 Heart Rhythm Society Amiodarone Monitoring Recommendations Lab [...] EPS (Electrophysiology Study) and Catheter Ablation: Pre-op (Somali) documented in this encounter Medications at Time [...] Inpatient Cardiac Electrophysiology Progress Note Patient Name: Rloo Aguilar Service: EP Responsible Attending: Breonna Terrell [...] converted from AF --> SR in the underground electrician hours of 12/17. IV amiodarone was stopped [...] HCT 43.6 2020 PLATELET 172 2020 12/17/20; 0311 INR 1.5 Component Value Date NA 137 12/18/2020 K 3.9 12/18/2020 CL 105 12/18/2020 BUN 9 (L) 2020 CREATININE 0.92 2020 MAGNESIUM 0.84 2020 Assessment: - 50 y.o. male w/ hx of morbid obesity, SVT s/p ablation (07/10/2020), paroxysmal AF (on apixaban),??ASCVD (s/p NSTEMI, EMMY to OM1 in 07/2017), HTN, sleep apnea, RICARDO who was transferred from [facility] due to recurrent and difficult to [...] assessment of Mr. Kahn as detailed below. Ibb has done well overnight since switching to [...] sleep apnea, RICARDO who was transferred from [facility] due to recurrent A flutter with [...] 16.52) performed by Colt Hewitt MD at [facility] MAIN OR ??? PRO UPPER GI ENDOSCOPY, BIOPSY N/A 12/29/2017 UPPER GASTROINTESTINAL ENDOSCOPY,WITH BIOPSY SINGLE OR MULTIPLE (WRVU 2.49) performed by Yusuf Tucker MD at [facility] ENDOSCOPY ??? PRO UPPER GI ENDOSCOPY, DIAGNOSTIC N/A 12/29/2017 EGD, UPPER GI ENDOSCOPY performed by Yusuf Tucker MD at [facility] ENDOSCOPY ??? TONSILLECTOMY Significant Family [...] B/L, no calf tenderness, swelling, or erythema. Neuro/SMOOTH STUCCO RESURFACER: AAO x 3, No gross motor deficits. No sensory loss. No gait ataxia. LABS: Recent Results (from the past 24 hour(s)) COVID-19 PCR Specimen: Nasopharyngeal Swab Symptoms->Surveillance Result Value Ref Range Rapid SARS-CoV-2 RNA Not Detected Not Detected SARS-CoV-2 Source TABLE MACHINE OPERATOR Swab Basic Metabolic Panel (non-fasting) Result Value [...] sleep apnea, RICARDO who was transferred from [facility] due to recurrent and difficult to [...] past week with multiple presentations to the [facility]. He has had recurrence of atrial [...] converted from AF --> SR in the underground electrician hours. We discussed how amiodarone works and [...] care provider on file: Bin Bowman MD [phone] Advance Directive on file and Code Status: <no information>, Attempt Cardiopulmonary Resuscitation - Inpatient Patient???s Functional Status: Independent Living Situation: lives with Autumn at [address] [facility] [address] Supports:Autumn Aguilar (Spouse) Assessment: Patient with no apparent RNCM/SW needs at this time. No housing, transportation, insurance, resources concerns identified at this time. Supports in place to achieve a safe post-hospital transition. No identified barriers to accessing necessary care and/or follow-up after discharge. Plan: Patient to d/c to home when medically ready. to transport when discharged head batcher/Care Transition Manager will continue to follow patient???s progress and [...] 10:[address] [place] [address] Rachel Carrasco MD [facility] [place] [address] 09/21/2024 11:00 AM EST Office [place] [phone] Rachel Carrasco MD [facility] [address] documented as of this encounter Procedures Procedure [...] Coronary disease Flutter-fibrillati on RAPID COVID-19 PCR ([facility]D/[facility]) Routine 2020 2:15 AM EST documented in this encounter Results * Electrolytes panel (12/19/2020 5:02 AM EST) Sodium 138 135 - 145 mmol/L [facility] Potassium 4.2 3.5 - 5.0 mmol/L [facility] Comment: Please note: ??Patients with WBC >100,000 may have falsely elevated Potassium levels. ??For accurate Potassium quantification in these patients send serum separator tube (gold top) for subsequent determinations. ??Contact the Clinical Chemistry Laboratory if there are any questions. Chloride 104 98 - 107 mmol/L [facility] Carbon Dioxide 27 22 - 31 mmol/L [facility] Anion Gap 7 5 - 15 mmol/L [facility] Blood specimen (specimen) 12/19/2020 5:02 AM EST 12/19/2020 5:31 AM EST Narrative Resulting Agency Comment Spec In Lab Wes Nina MD CHEMISTRY ORDERABLES [facility] [place] [address] * Electrolytes panel (12/18/2020 4:03 AM EST) Sodium 137 135 - 145 mmol/L [facility] questions. Chloride 105 98 - 107 mmol/L [facility] Carbon Dioxide 25 22 - 31 mmol/L [facility] Anion Gap 7 5 - 15 mmol/L [facility] Blood specimen (specimen) 12/18/2020 4:03 AM EST 12/18/2020 4:24 AM EST Narrative Resulting Agency Comment Spec In Lab Wes Nina MD CHEMISTRY ORDERABLES [facility] [place] [address] * Differential, Automated (2020 3:11 AM EST) Neutrophil % 63.7 % [facility] Neutrophil Absolute 5.57 1.70 - 6.10 x10(3)/[facility] [place] [facility] Lymph % 26.8 % [facility] Lymphocytes Abs 2.4 0.9 - 3.2 x10(3)/[facility] [place] [facility] Monocyte % 6.8 % [facility] Monocyte Abs 0.6 0.3 - 0.9 x10(3)/[facility] Eos % 1.9 % [facility] Eosinophils Abs 0.2 0.0 - 0.4 x10(3)/[facility] [place] [facility] Basophil % 0.6 % [facility] Baso Absolute 0.0 0.0 - 0.1 x10(3)/[facility] Immature Gran % 0.20 % [facility] Comment: Immature granulocytes(IG's)percentage and absolute count will include metamyelocytes, myelocytes, and promyelocytes. Blood smears from CBCs yielding IG's will be scanned manually for concordance. If this scan disagrees with the automated IG or if promyelocytes are noted, a manual differential will be performed. Immature Gran Absolute 0.02 0.00 - 0.04 x10(3)/[facility] Blood specimen (specimen) 2020 3:11 AM EST 2020 3:23 AM EST Narrative Resulting Agency Comment Spec In Lab Wes Nina MD HEMATOLOGY ORDERABLE S [facility] [place] [address] * Hemogram (2020 3:11 AM EST) White Blood Cell 8.8 4.0 - 9.5 x10(3)/[facility] [place] [facility] Red Blood Cell 5.21 4.58 - 5.54 x10(6)/[facility] Hemoglobin 14.4 13.7 - 16.5 gm/dL [facility] Hematocrit 43.6 40.5 - 48.5 % [facility] Mean Cell Volume 83.7 82.9 - 93.1 fL [facility] Mean Cell Hemoglobin 27.6 27.5 - 32.1 pg [facility] Mean Cell Hemoglobin Concentration 33.0 32.0 - 35.7 gm/dL [facility] Platelet 172 145 - 357 x10(3)/[facility] [place] [facility] RDW Standard Deviation 41.3 36.0 - 45.0 fL [facility] RDW coefficient of variation 13.6 11.4 - 13.8 % [facility] Mean Platelet Volume 9.7 7.6 - 12.9 fL [facility] NRBC% auto 0.0 % [facility] NRBC Absolute 0.000 0.000 - 0.000 x10(3)/[facility] [place] [facility] Blood specimen (specimen) 2020 3:11 AM EST 2020 3:23 AM EST Narrative Resulting Agency Comment Spec In Lab Wes Nina MD HEMATOLOGY ORDERABLE S [facility] [place] [address] * Hemoglobin A1c (2020 3:11 AM EST) Hemoglobin A1c 5.2 4.3 - 5.6 % [facility] Comment: Reference Range: 4.3 - 5.6% [...] Mellitus, Diabetes Care 2013; 36: Suppl. 1, S67-06 Estimated Average Glucose 104 mg/dL [facility] Comment: eAG equivalents [...] on the ADA website. Isak TORRES, Diann Bhagat, Saskia Mcgregor, et al. ??Translating the A1C assay into estimated average glucose values. ??Diabetes Care 2008:31(8):4191-4995. Blood specimen (specimen) 2020 3:11 AM EST 2020 3:23 AM EST Narrative Resulting Agency Comment Spec In Lab Wes Nina MD CHEMISTRY ORDERABLES Performing Organization Address City/State/[facility] Co de Phone Number [facility] [place] [address] * Lipid Panel (Reflex Direct LDL) (2020 3:11 AM EST) Cholesterol, Total 89 mg/dL [facility] Comment: Lower Risk: <200 mg/dL Average Risk: 200-239 mg/dL Higher Risk: >jm=661 mg/dL Triglyceride 75 mg/dL [facility] Comment: Average Risk/Lower Risk: <150 mg/dL Borderline High Risk: 150-199 mg/dL High Risk: 200-499 mg/dL Very High Risk: >eo=205 mg/dL HDL Cholesterol 35 mg/dL [facility] Comment: Males: ?? Higher Risk: <40 mg/dL Females: ?? HIgher Risk: <50 mg/dL LDL Cholesterol 39 mg/dL [facility] Comment: Lowest Risk: <100 mg/dL Lower Risk: 100-129 mg/dL Borderline High Risk: 130-159 mg/dL High Risk: 160-189 mg/dL Very High Risk: >zl=330 mg/dL Cholesterol/HDL Ratio 2.5 ratio [facility] Lipid Interpretation See Note [facility] Comment: Lipid management should be guided by a patient? s ASCVD risk, goals and preferences. ACC/AHA Guidelines recommend high intensity statin if clinical ASCVD or LDL greater than or equal to 190 mg/dL. http://LearnUpurl.com/IIM-CQE-Hcbdplovh Adults aged 40-75 with LDL 70-189 mg/dL should have their 10 year ASCVD risk estimated with the ACC/AHA ASCVD risk estimator jewelry http://tools.acc.org/XEXHY-Mwcv-Ibdkonuwe/ Statin should be discussed if risk greater [...] Nina MD CHEMISTRY ORDERABLES Performing Organization Address [place]/[facility] Co de Phone Number [facility] [place] [address] * APTT (2020 3:11 AM EST) Partial Thromboplastin Time 36 25 - 37 sec [facility] Comment: The PTT [...] MD HEMATOLOGY ORDERABLE S Performing Organization Address [place]/[facility]/ZIP Co de Phone Number [facility] [place] [address] * (ABNORMAL) Prothrombin Time (2020 3:11 AM EST) Prothrombin Time 16.7(H) 9.4 - 12.5 sec [facility] International Normalization Ratio 1.5 [facility] Comment: [...] MD HEMATOLOGY ORDERABLE S Performing Organization Address City/[facility]/ZIP Co de Phone Number [facility] [place] [address] * Hepatic Function Panel (2020 3:11 AM EST) Pathologist [facility] Protein, Total 6.9 6.1 - 8.0 gm/dL [facility] Albumin 3.7 3.2 - 5.2 gm/dL [facility] Aspartate Aminotransferase 18 0 - 39 unit/L [facility] Alanine Aminotransferase 29 0 - 55 unit/L [facility] Alkaline Phosphatase 66 40 - 130 unit/L [facility] Bilirubin, Total 0.5 0.2 - 1.3 mg/dL [facility] Bilirubin, Direct 0.2 0.0 - 0.3 mg/dL [facility] Blood specimen (specimen) 2020 3:11 AM EST 2020 3:23 AM EST Narrative Resulting Agency Comment Spec In Lab Wes Nina MD CHEMISTRY ORDERABLES Performing Organization Address City/[facility]/ZIP Co de Phone Number [facility] [place] [address] * (ABNORMAL) pro-Brain Natriuretic Peptide (2020 3:11 AM EST) NT-proBNP 654(H) <=125 pg/mL [facility] Blood specimen (specimen) 2020 3:11 AM EST 2020 3:23 AM EST Narrative Resulting Agency Comment Spec In Lab Wes Nina MD CHEMISTRY ORDERABLES Performing Organization Address City/[facility]/ZIP Co de Phone Number [facility] [place] [address] * TSH (2020 3:11 AM EST) Thyroid Stimulating Hormone 2.75 0.27 - 4.20 mcIU/mL [facility] Blood specimen (specimen) 2020 3:11 AM EST 2020 3:23 AM EST Narrative Resulting Agency Comment Spec In Lab Wes Nina MD CHEMISTRY ORDERABLES Performing Organization Address [place]/[facility] Co de Phone Number [facility] [place] [address] * Phosphorus (2020 3:11 AM EST) Phosphorus 3.0 2.5 - 4.5 mg/dL [facility] Blood specimen (specimen) 2020 3:11 AM EST 2020 3:23 AM EST Narrative Resulting Agency Comment Spec In Lab Wes Nina MD CHEMISTRY ORDERABLES Performing Organization Address [place]/[facility] Co de Phone Number [facility] [place] [address] * Magnesium (2020 3:11 AM EST) Magnesium 0.84 0.69 - 1.07 mmol/L [facility] Blood specimen (specimen) 2020 3:11 AM EST 2020 3:23 AM EST Narrative Resulting Agency Comment Spec In Lab Wes Nina MD CHEMISTRY ORDERABLES Performing Organization Address City/[facility] Co de Phone Number [facility] [place] [address] * (ABNORMAL) Basic Metabolic Panel (non-fasting) (2020 3:11 AM EST) Glucose 110 65 - 199 mg/dL [facility] Comment:Diabetes: >=200 mg/d L plus symptoms Blood Urea Nitrogen 9(L) 10 - 20 mg/dL [facility] Creatinine 0.92 0.80 - 1.50 mg/dL [facility] Sodium 141 135 - 145 mmol/L [facility] Potassium 3.6 3.5 - 5.0 mmol/L [facility] Comment: Please note: ??Patients with WBC >100,000 may have falsely elevated Potassium levels. ??For accurate Potassium quantification in these patients send serum separator tube (gold top) for subsequent determinations. ??Contact the Clinical Chemistry Laboratory if there are any questions. Chloride 106 98 - 107 mmol/L [facility] Carbon Dioxide 25 22 - 31 mmol/L [facility] Anion Gap 10 5 - 15 mmol/L [facility] Calcium 9.1 8.5 - 10.5 mg/dL [facility] Est Glomerular Filtration Rate 96 >=60 mL/min/1. 73 m?? [facility] [...] In Lab Wes Nina MD CHEMISTRY ORDERABLES [facility] [place] [address] * EKG 12 Lead (2020 2:40 AM EST) Pathologist [facility] Ventricular rate 100 BPM MUSE SYSTEM Atrial Rate 286 BPM MUSE SYSTEM QRS Duration 96 ms MUSE SYSTEM Q-T Interval 350 ms MUSE SYSTEM QTC Calculated (Bezet) 451 ms MUSE SYSTEM Calculated R [place] 35 degrees MUSE SYSTEM Calculated T [place] 32 degrees MUSE SYSTEM INTERPRETATION Atrial fibrillation with rapid ventricular response Abnormal ECG When compared with ECG of 06-SEP-2020 14:03, Atrial fibrillation has replaced Sinus rhythm Confirmed by MD Nidhi, Breonna Lynn ([id number]) on 2020 12:49:35 PM MUSE SYSTEM 2020 2:40 AM EST 2020 12:49 PM EST Wes Nina MD ECG ORDERABLES MUSE SYSTEM * COVID-19 PCR (2020 2:15 AM EST) Pathologist [facility] SARS-CoV-2 RNA (Rapid) Not Detected Not Detected [facility] Comment: This result [...] using the Simplexa COVID-19 Direct Assay by [employer] as authorized by the FDA issued Emergency [...] Department of Pathology and Laboratory Medicine at [facility], certified under the Clinical Laboratory Improvement Amendments [...] fact sheets at the following FDA website: https://www.fda.gov/medical-devices/larnhrjcygy-fpapfll-3370-rrswx-76-efytxwcpw- use-a qrbbbivnzgizm-zduomgt-obkmoje/pcatr-ebdwbupapbj-cdcw SARS-CoV-2 Source TABLE MACHINE OPERATOR Swab [facility] Nasopharyngeal swab (specimen) 2020 2:15 AM EST 2020 3:28 AM EST Comment:Symptoms->Surveillan ce Narrative Resulting Agency Comment Spec In Lab Wes Nina MD MICROBIOLOGY - GENER AL ORDERABLES [facility] [place] [address] documented in this encounter Visit Diagnoses Diagnosis [...] mg, Oral, EVERY EVENING, First dose on Fri12/17/20 at 1700, Until Discontinued, Routine Given 12/18/2020 [...] RN) 0832 (Given - Provider: Mavis Gamboa RN)1432 (Given - Provider: Mavis Gamboa RN)2022 (Given [...] Dupe order)2099 (Not Given - Provider: Maggie Wolf, RN - Reason: Contraindicated) 0839 (Given - Provider: Mavis Gamboa, FLAVIA)2022 (Given - Provider: Maggie Wolf RN) 0835 (Given - Provider: Mavis Gamboa, RN) sodium chloride 0.9 % (flush) flush 5 mL 5 mL, Intravenous, 2 TIMES DAILY, First dose on Fri12/17/20 at 0900, Until Discontinued, Routine 0900 (Not Given - Provider: Fernandez Richardson RN - Reason: See comment - Comment: infusing)2051 (Given - Provider: Maggie Wolf, FLAVIA) 0839 (Given - Provider: Mavis Gamboa, FLAVIA)2099 (Not Given - Provider: Maggie Wolf RN [...] dosing. 0235 (New Bag - Provider: Ismael Vallejo, RN - Comment: Started at OSH on [...] OPEN, Routine 2236 (Given - Provider: Maggie Wolf RN) lidocaine (Xylocaine) 1% (10 mg/mL) injection [...] Routine documented in this encounter Care Teams Lead Technologist In Cytogenetics Relationship Specialty Start Date End Date Bin Bowman MD [address] [place] [id number] PCP - General General Internal Medicine 04/21/1707/11 documented as of this encounter
--- OUTSIDE RECORDS SUMMARY | 2024-07-21 11:31 | XMS_ITS | Encounter Summary ---
[place] [address] Care Team Providers Care Public Relations Counselor Name Role Phone Bin Bowman MD Primary Care Provider [phone] Encounter Details Date Type Department Care Team (Late st Contact Info) Description 12/19/2020 Telephone Cardiology at [address] [phone] Ivonne Nicole, RN Social History Tobacco Use [...] - 12/19/2020 3:21 PM EST TC from [facility] pharmacy to clarify Amiodarone prescription for 400mg, sent to pharmacy today. Confirmed new dosing schedule with pharmacist, even though patient has just picked up Amiodarone 200mg tablet prescription 4 days ago. documented in this encounter Plan of Treatment Upcoming Encounters Date Type Department Care Team (Late st Contact Info) Description 09/21/2024 10:[address] [place] [address] Rachel Carrasco MD [facility] [place] [address] 09/21/2024 11:00 AM EST Office [place] [address] Rachel Carrasco MD [facility] [address] documented as of this encounter Visit Diagnoses Not on filedocumented in this encounter Care Teams Public Relations Counselor Relationship Specialty Start Date End Date Bin Bowman MD [address] [place] [phone] PCP - General General Internal Medicine 04/21/1707/11 documented as of this encounter
--- OUTSIDE RECORDS SUMMARY | 2024-07-21 11:31 | XMS_ITS | Encounter Summary ---
Author Organization [facility] [place] [address] Care Team Providers Care Chair Lift Operator Name Role Phone Bin Bowman MD Primary Care Provider Encounter Details Date Type Department Care Team (Late st Contact Info) Description 12/06/2020 Orders Only Cardiology at [address] [phone] Fadi sEcobar MD [facility] [place] [address] SVT (supraventricular tachycardia) Social History Tobacco Use [...] 10:[address] [place] [place] [phone] Rachel Carrasco MD [facility] [place] [address] 09/21/2024 11:00 AM EST [place] [address] Rachel Carrasco MD [facility] [place] [address] Scheduled Orders Name Type Priority Associated Diagnoses Orde r Schedule Basic Metabolic Panel (non-fasting) Lab Routine SVT (supraventricular tachycardia) Expected: 01/16/2021 (Approximate), Expires: 12/06/2021 documented as of this encounter Visit Diagnoses Diagnosis SVT (supraventricular tachycardia) Other specified cardiac dysrhythmias documented in this encounter Care Teams Chair Lift Operator Relationship Specialty Start Date End Date Bin Bowman MD [address] [address] PCP - General General Internal Medicine 04/21/1707/11 documented as of this encounter
--- OUTSIDE RECORDS SUMMARY | 2024-07-21 11:31 | XMS_ITS | Encounter Summary ---
[place] [address] Care Team Providers Care Supply Chain Program Manager Name Role Phone Bin Bowman MD Primary Care Provider Encounter Details Date Type Department Care Team (Late st Contact Info) Description 12/21/2020 Telephone [place] [phone] Teetee Hugo Social History Tobacco Use Types [...] - 12/21/2020 9:12 AM ESTSummary: EP Procedure [employer] Checklist - 01/16 EP Procedure [employer] Patient Coordination Checklist DATE CALLED: CASTILLO HAS SENT [employer] MESSAGE TO PATIENT WHO AGREED TO DATE/TIME DATE OF PROCEDURE: 01/16 PERFORMING MD HARPER PROCEDURE TYPE: SVT ABLATION COMPANY: [employer] ANESTHESIA TYPE: GA IMAGING NEEDED: N/A DATES [...] 10:[address] [place] [address] Rachel Carrasco MD [facility] [place] [address] 09/21/2024 11:00 AM EST [place] [phone] Rachel Carrasco MD [facility] [place] [address] documented as of this encounter Visit Diagnoses Not on filedocumented in this encounter Care Teams Supply Chain Program Manager Relationship Specialty Start Date End Date Bin Bowman MD [address] [place] [address] PCP - General General Internal Medicine 04/21/1707/11 documented as of this encounter
--- OUTSIDE RECORDS SUMMARY | 2024-07-21 11:31 | XMS_ITS | Encounter Summary ---
Author Organization [facility] [place] [address] Care Team Providers Care Humanities Coordinator Name Role Phone Bin Bowman MD Primary Care Provider [phone] Reason for Referral * Diagnostic Test (Routine) - Closed Specialty Diagnoses / Procedures Referred By Contac t Referred To Contact Cardiology Diagnoses H/O cardiac radiofrequency ablation Procedures Mary Contreras PA [facility] [place] [address] [facility] [place] [address] Referral ID Status Reason Start Date Expiration Date V isits Requested Visits Authorized [id number] Closed Specialty Service Requested 08/01/2020 08/26/2020 1 1 Reason for Visit * Diagnostic Test (Routine) - Closed Specialty Diagnoses / Procedures Referred By Contac t Referred To Contact Cardiology Diagnoses H/O cardiac radiofrequency ablation Procedures Mary Contreras PA [facility] [place] [address] [facility] [place] [address] Referral ID Status Reason Start Date Expiration Date V isits Requested Visits Authorized [id number] Closed Specialty Service Requested 08/01/2020 08/26/2020 1 1 Encounter Details Date Type Department Care Team (Latest Contact Info) Description 08/02/2020 12:52 PM EDT - 08/02/2020 11:59 PM EDT Hospital Encounter Non-Invasive Cardiology Lab [facility] [place] [address] Fadi Escobar MD [facility] [place] [address] H/O cardiac radiofrequency ablation Discharge Disposition: Home [...] Sustained Release 24 hrIndications:Coronary artery disease involving man[place] coronary artery of [place] heart without angina pectoris,Essential hypertension,Heart palpitations Take 1 tablet by mouth 2 times daily. Take with 25mg tab to equal 125mg BID 90 tablet 1 07/11/2020 11/07/2020 metoprolol succinate XL (Toprol-XL) 25 mg Tablet Sustained Release 24 hrIndications:Coronary artery disease involving [place] coronary artery of [place] heart without angina pectoris,Essential hypertension,Heart palpitations Take [...] 10:[address] [place] [place] [address] Rcahel Carrasco MD [facility] [place] [address] 09/21/2024 11:00 AM EST [place] [address] Rachel Carrasco MD [facility] [place] [address] documented as of this encounter Procedures Procedure Name Priority Date/Time Associated Diagnosis Comments CAROLANNOPAGABRIEL Routine 08/02/2020 1:20 PM EDT H/O cardiac [...] detected. ____ Interpreted by Fadi Escobar MD, [facility] Fadi Escobar MD CARDIAC SERVICES ORD ERABLES documented in this encounter Visit Diagnoses Diagnosis H/O cardiac radiofrequency ablation documented in this encounter Care Teams Humanities Coordinator Relationship Specialty Start Date End Date Bin Bowman MD [address] [place] [address] PCP - General General Internal Medicine 04/21/1707/11 documented as of this encounter
--- OUTSIDE RECORDS SUMMARY | 2024-07-21 11:31 | XMS_ITS | Encounter Summary ---
Author Organization [facility] [place] [address] Care Team Providers Care Rn Telemetry Name Role Phone Bin Bowman MD Primary Care Provider Encounter Details Date Type Department Care Team (Late st Contact Info) Description 12/15/2020 Ancillary Procedure [place] [phone] Bin Bowman MD [address] [place] [address] Social History Tobacco Use Types Packs/Day Years [...] 10:[address] [place] [phone] Rachel Carrasco MD [facility] [place] [address] 09/21/2024 11:00 AM EST [place] [address] Rachel Carrasco MD [facility] [place] [address] documented as of this encounter Procedures Procedure Name Priority Date/Time Associated Diagnosis Comments FILM LIBRARY STORAGE ONLY DX CHEST Routine 12/15/2020 12:00 AM EST documented in this encounter Results * Film Library- Storage Only DX Chest (12/15/2020 12:00 AM EST) Narrative [facility] - 12/16/2020 11:42 PM EST This exam is auto-finalizing. It's purpose is for storage only. Bin Bowman MD IMG FILM LIBRARY ORD ERABLES Performing Organization Address City/State/[facility] Co de Phone Number [place], [place] documented in this encounter Visit Diagnoses Not on filedocumented in this encounter Care Teams Rn Telemetry Relationship Specialty Start Date End Date Bin Bowman MD [address] [place] [address] PCP - General General Internal Medicine 04/21/1707/11 documented as of this encounter
--- OUTSIDE RECORDS SUMMARY | 2024-07-21 11:31 | XMS_ITS | Encounter Summary ---
Author Organization [facility] [place] [address] Care Team Providers Care Insulation Helper Name Role Phone Bin Bowman MD Primary Care Provider [phone] Encounter Details Date Type Department Care Team (Late st Contact Info) Description 12/14/2020 External [place] [phone] Social History Tobacco Use Types Packs/Day Years [...] 10:[address] [place] [place] [phone] Rachel Carrasco MD [facility] [place] [address] 09/21/2024 11:00 AM EST [place] [address] Rachel Carrasco MD [facility] [address] documented as of this encounter Procedures Procedure [...] filedocumented in this encounter Care Teams Insulation Helper Relationship Specialty Start Date End Date Bin Bowman MD [address] [place] [address] PCP - General General Internal Medicine 04/21/1707/11 documented as of this encounter
--- OUTSIDE RECORDS SUMMARY | 2024-07-21 11:31 | XMS_ITS | Encounter Summary ---
[place] [address] Care Team Providers Care Top Case Assembler Name Role Phone Bin Bowman MD Primary Care Provider [phone] Encounter Details Date Type Department Care Team (Late st Contact Info) Description 07/11/2020 Telephone Cardiology at [address] [phone] Fady Lord RN Social History Tobacco Use [...] confirmed with Dr. Palomo Lyman' nurse at [facility] Cardiology. Pt medication list updated. documented in this encounter Plan of Treatment Upcoming Encounters Date Type Department Care Team (Late st Contact Info) Description 09/21/2024 10:[address] [place] [place] [address] Rachel Carrasco MD [facility] [place] [address] 09/21/2024 11:00 AM EST [place] [phone] Rachel Carrasco MD [facility] [address] documented as of this encounter Visit Diagnoses Not on filedocumented in this encounter Care Teams Top Case Assembler Relationship Specialty Start Date End Date Bin Bowman MD [address] [place] [address] PCP - General General Internal Medicine 04/21/1707/11 documented as of this encounter
--- OUTSIDE RECORDS SUMMARY | 2024-07-21 11:31 | XMS_ITS | Encounter Summary ---
[place] [address] Care Team Providers Care Desk Pen Set Assembler Name Role Phone Bin Bowman MD Primary Care Provider [phone] Reason for Visit * Reason Onset Date Comments Questions 10/30/2020 Medication adjus tment Encounter Details Date Type Department Care Team (Late st Contact Info) Description 10/30/2020 Telephone Cardiology at [address] [phone] Ivonne Nicole, RN Questions (Medication adjustment) Social [...] Mrs Aguilar, after leaving a for Mr gAuilar, to convey Dr Terrell's advice to increase [...] 10:[address] [place] [address] Rachel Carrasco MD [facility] [place] [address] 09/21/2024 11:00 AM EST Office [place] [address] Rachel Carrasco MD [facility] [place] [address] documented as of this encounter Visit Diagnoses Not on filedocumented in this encounter Care Teams Desk Pen Set Assembler Relationship Specialty Start Date End Date Bin Bowman MD [address] [place] [address] PCP - General General Internal Medicine 04/21/1707/11 documented as of this encounter
--- OUTSIDE RECORDS SUMMARY | 2024-07-21 11:31 | XMS_ITS | Encounter Summary ---
Author Organization [facility] [place] [address] Care Team Providers Care [employer] Volleyball Coach Name Role Phone Bin Bowman MD Primary Care Provider Reason for Visit * Auth/Cert Specialty Diagnoses / Procedures Referred By Zeyad mishra Referred To Contact Diagnoses . Procedures ELECTROPHYSIOLOGY PROCEDURE Referral ID Status Reason Start Date Expiration Date Visits Re quested Visits Authorized [id number] 1 1 Encounter Details Date Type Department Care Team (Latest Contact Info) Description 07/10/2020 7:22 AM EDT - 07/11/2020 11:35 AM EDT Hospital Encounter Intermediate [place] [address] Fadi Escobar MD [facility] [place] [address] SVT (supraventricular tachycardia); Coronary disease; Essential hypertension; [...] Rolo Aguilar Patient Age: 49 y.o. Language: Divehi Race: White Ethnicity: Not nor Admit date: 07/10/2020 Discharge date and time: 07/11/2020 Attending Physician: Fadi Escobar MD Discharge Physician: Fadi Escobar MD Follow-up Recommendations for Providers: - s/p CTI ablation (atrial flutter ablation) - follow-up with EP in ~3 months Inpatient Provider Contact Information: Cardiac Electrophysiology - Weekends and holidays call [phone]; ask for lvn lpn environmental lawyer. Discharge Diagnoses (Hospital Problems) and Secondary Diagnoses [...] of any new medications initiated at the [facility]. The patient should be [...] his/her physician or the Cardiac Electrophysiology Service ([phone]). Cardiac Electrophysiology Attending This patient was reviewed with Mr. Kahn and Dr. De Anda. I discussed procedural results and findings with Mr. Aguilar, and recommended follow up in ~3 months (sooner prn) after he wears a Zio monitor and results are available. If insurance in [place] fails to cover the cost of the [...] of any new medications initiated at the [facility]. The patient should be [...] his/her physician or the Cardiac Electrophysiology Service ([phone]). documented in this encounter Medications at Time [...] OM1. EF 60%. Many ER visits to [facility] after this. ??? Heart palpitations ??? Obesity [...] contact EP with any further questions (pager [phone]). SONNY Grover 07/11/2020 Pager: [phone] * Justa Rider RN - 07/10/2020 10:29 [...] History and Physical Exam: Planned Procedure [facility] CARDIAC ELECTROPHYSIOLOGY LABORATORIES HISTORY OF PRESENT ILLNESS: Rolo Aguilar is a 49 y.o. male with multiple symptomatic dysrhythmias recently. April 27 to the Emergency Department in [facility] with an episode of supraventricular [...] performed by Colt Hewitt MD [facility] MAIN OR ??? PRO UNLISTED LAPAROSCOPIC PX LVR N/A 07/21/2018 LAPAROSCOPIC LIVER BIOPSY (WRVU 16.52) performed by Colt Hewitt MD at [facility] MAIN OR ??? PRO UPPER GI ENDOSCOPY, BIOPSY N/A 12/29/2017 UPPER GASTROINTESTINAL ENDOSCOPY,WITH BIOPSY SINGLE OR MULTIPLE (WRVU 2.49) performed by Yusuf Tucker MD at [facility] ENDOSCOPY ??? PRO UPPER GI ENDOSCOPY, DIAGNOSTIC N/A 12/29/2017 EGD, UPPER GI ENDOSCOPY performed by Yusuf Tucker MD at [facility] ENDOSCOPY Accessory Clinical Findings: Laboratory Data: Lab [...] service for dysrythmnia. He is insured through [place] Medicaid with prescription coverage. Per discussion with RN, he was independent and had no needs on discharge. * Plan of Care - Justa Rider RN - 07/11/2020 3:43 AM EDT OUTCOME [...] 10:[address] [place] [address] Rachel Carrasco MD [facility] [place] [address] 09/21/2024 11:00 AM EST Office [place] [address] Rachel Carrasco MD [facility] [place] [address] Scheduled Orders Name Type Priority Associated Diagnoses [...] (Bezet) 426 ms MUSE SYSTEM Calculated P Mitchell 27 degrees MUSE SYSTEM Calculated R Mitchell 29 degrees MUSE SYSTEM Calculated T Mitchell 18 degrees MUSE SYSTEM INTERPRETATION Normal sinus rhythm Normal ECG When compared with ECG of 16-JUL-2017 06:45, T wave inversion less evident in Inferior leads Nonspecific T wave abnormality no longer evident in Lateral leads I personally reviewed the tracing and edited the fellows interpretation Confirmed by fellow Humza Wilson ([id number]) on 07/10/2020 11:25:10 AM Confirmed by MD Cheng, Jose ([id number]) on 07/10/2020 2:19:23 PM MUSE SYSTEM 07/10/2020 8:14 AM EDT 07/10/2020 2:19 PM EDT Fadi Escobar MD ECG ORDERABLES MUSE SYSTEM * Differential, Automated (07/10/2020 7:38 AM EDT) Neutrophil % 57.6 % [facility] Neutrophil Absolute 5.69 1.70 - 6.10 x10(3)/[facility] LABORATORY Lymph % 31.6 % [facility] Lymphocytes Abs 3.1 0.9 - 3.2 x10(3)/[facility] LABORATORY Monocyte % 7.6 % [facility] Monocyte Abs 0.8 0.3 - 0.9 x10(3)/[facility] LABORATORY Eos % 2.2 % [facility] Eosinophils Abs 0.2 0.0 - 0.4 x10(3)/[facility] LABORATORY Basophil % 0.6 % [facility] Baso Absolute 0.1 0.0 - 0.1 x10(3)/[facility] LABORATORY Immature Gran % 0.40 % [facility] Comment: Immature granulocytes(IG's)percentage and absolute count will include metamyelocytes, myelocytes, and promyelocytes. Blood smears from CBCs yielding IG's will be scanned manually for concordance. If this scan disagrees with the automated IG or if promyelocytes are noted, a manual differential will be performed. Immature Gran Absolute 0.04 0.00 - 0.04 x10(3)/[facility] LABORATORY Blood specimen (specimen) 07/10/2020 7:38 AM EDT 07/10/2020 7:55 AM EDT Narrative Resulting Agency Comment Spec In Lab Fadi Escobar MD HEMATOLOGY ORDERABLE S Performing Organization Address City/State/[facility] Co de Phone Number [facility] [place] [address] * (ABNORMAL) Hemogram (07/10/2020 7:38 AM EDT) White Blood Cell 9.9(H) 4.0 - 9.5 x10(3)/mc L [facility] Red Blood Cell 5.29 4.58 - 5.54 x10(6)/mc L [facility] Hemoglobin 15.6 13.7 - 16.5 gm/dL [facility] Hematocrit 47.3 40.5 - 48.5 % [facility] Mean Cell Volume 89.4 82.9 - 93.1 fL [facility] Mean Cell Hemoglobin 29.5 27.5 - 32.1 pg [facility] Mean Cell Hemoglobin Concentration 33.0 32.0 - 35.7 gm/dL [facility] Platelet 208 145 - 357 x10(3)/mc L [facility] RDW Standard Deviation 41.3 36.0 - 45.0 fL [facility] RDW coefficient of variation 12.5 11.4 - 13.8 % [facility] Mean Platelet Volume 10.7 7.6 - 12.9 fL [facility] NRBC% auto 0.0 % [facility] NRBC Absolute 0.000 0.000 - 0.000 x10(3)/mc L [facility] Blood specimen (specimen) 07/10/2020 7:38 AM EDT 07/10/2020 7:55 AM EDT Narrative Resulting Agency Comment Spec In Lab Fadi Escobar MD HEMATOLOGY ORDERABLE S Performing Organization Address City/State/[facility] Co de Phone Number [facility] [place] [address] * (ABNORMAL) BMP w/fasting Glucose (07/10/2020 7:38 AM EDT) Glucose Fasting 113(H) 65 - 99 mg/dL [facility] [...] of Diabetes Mellitus, Position Statement from the [place] [employer]. ??Diabetes Care, Volume 33, Supplement 1, Nov 2009 Blood Urea Nitrogen 13 10 - 20 mg/dL [facility] Creatinine 1.05 0.80 - 1.50 mg/dL [facility] Sodium 140 135 - 145 mmol/L [facility] Potassium 4.7 3.5 - 5.0 mmol/L [facility] Comment: Please note: ??Patients with WBC >100,000 may have falsely elevated Potassium levels. ??For accurate Potassium quantification in these patients send serum separator tube (gold top) for subsequent determinations. ??Contact the Clinical Chemistry Laboratory if there are any questions. Chloride 100 98 - 107 mmol/L [facility] Carbon Dioxide 32(H) 22 - 31 mmol/L [facility] Anion Gap 8 5 - 15 mmol/L [facility] Calcium 10.0 8.5 - 10.5 mg/dL [facility] Est Glomerular Filtration Rate 82 >=60 mL/min/1. 73 m?? [facility] Comment: The eGFR was calculated using the CKD-EPI equation. As with all creatinine based estimates of kidney function, eGFR values calculated with the CKD-EPI equation are not accurate in patients with acute kidney failure, extremes of body mass or the acutely ill. http://Digiscend/DHnkf eGFR 95 >=60 mL/min/1. 73 m?? [facility] Comment: The eGFR was calculated using the CKD-EPI equation. As with all creatinine based estimates of kidney function, eGFR values calculated with the CKD-EPI equation are not accurate in patients with acute kidney failure, extremes of body mass or the acutely ill. http://Digiscend/DHnkf Blood specimen (specimen) 07/10/2020 7:38 AM EDT 07/10/2020 7:56 AM EDT Narrative Resulting Agency Comment Spec In Lab Fadi Escobar MD CHEMISTRY ORDERABLES [facility] [place] [address] * (ABNORMAL) Prothrombin Time (07/10/2020 7:38 AM EDT) Prothrombin Time 14.0(H) 9.4 - 12.5 sec [facility] International Normalization Ratio 1.2 [facility] Comment: An INR [...] S [facility] [place] [address] documented in this encounter Visit Diagnoses Diagnosis [...] Rider RN) 902 (Given - Provider: Kati Edmonds RN) lamoTRIgine [...] Rider RN) 09 (Given - Provider: Kati Edmonds, FLAVIA) HYDROmorphone [...] Routine documented in this encounter Care Teams [employer] Volleyball Coach Relationship Specialty Start Date End Date Bin Bowman MD [address] [place] [address] PCP - General General Internal Medicine 04/21/1707/11 documented as of this encounter
--- OUTSIDE RECORDS SUMMARY | 2024-07-21 11:31 | XMS_ITS | Encounter Summary ---
Author Organization [facility] Address [facility] [place] [address] Care Team Providers Care Taker Off Drying Kiln Name Role Phone Bin Bowman MD Primary Care Provider Encounter Details Date Type Department Care Team (Late st Contact Info) Description 12/14/2020 Telephone Cardiology at [address] [address] Obdulio Dominique MD [facility] [place] [address] Social History Tobacco Use Types Packs/Day Years [...] 10:[address] [place] [place] [address] Rachel Carrasco MD [facility] [place] [address] 09/21/2024 11:00 AM EST Office [place] [phone] Rachel Carrasco MD [facility] [place] [address] documented as of this encounter Visit Diagnoses Not on filedocumented in this encounter Care Teams Taker Off Drying Kiln Relationship Specialty Start Date End Date Bin Bowman MD [address] [place] [address] PCP - General General Internal Medicine 04/21/1707/11 documented as of this encounter
--- OUTSIDE RECORDS SUMMARY | 2024-07-21 11:31 | XMS_ITS | Encounter Summary ---
Author Organization [facility] [place] [address] Care Team Providers Care Nicker Name Role Phone Bin Bowman MD Primary Care Provider Encounter Details Date Type Department Care Team (Late st Contact Info) Description 12/16/2020 11:40 PM EST Ancillary Procedure [place] [phone] Bin Bowman MD [address] [place] [address] Social History Tobacco Use Types Packs/Day Years [...] 10:[address] [place] [address] Rachel Carrasco MD [facility] [place], [place] [id number] 09/21/2024 11:00 AM EST Office [place] [address] Rachel Carrasco MD [facility] [place] [address] documented as of this encounter Procedures Procedure Name Priority Date/Time Associated Diagnosis Comments FILM LIBRARY STORAGE ONLY DX CHEST Routine 12/16/2020 11:37 PM EST documented in this encounter Results * Film Library- Storage Only DX Chest (12/16/2020 11:37 PM EST) Narrative [facility] - 12/16/2020 11:37 PM EST This exam is auto-finalizing. It's purpose is for storage only. Bin Bowman MD IMG FILM LIBRARY ORD ERABLES Performing Organization Address City/State/[facility] Co de Phone Number [place], [place] documented in this encounter Visit Diagnoses Not on filedocumented in this encounter Care Teams Nicker Relationship Specialty Start Date End Date Bin Bowman MD [address] [place] [address] PCP - General General Internal Medicine 04/21/1707/11 documented as of this encounter
--- OUTSIDE RECORDS SUMMARY | 2024-07-21 11:31 | XMS_ITS | Encounter Summary ---
[place] [address] Care Team Providers Care Process Analyst Name Role Phone Bin Bowman MD Primary Care Provider Encounter Details Date Type Department Care Team (Late st Contact Info) Description 12/06/2020 Telephone Cardiology at [address] [phone] Jami Gurrola Social History Tobacco Use Types [...] EST [place]ment [place] [address] Rachel Carrasco MD [facility] [place] [address] 09/21/2024 11:00 AM EST Office [place] [address] Rachel Carrasco MD [facility] [place] [address] documented as of this encounter Visit Diagnoses Not on filedocumented in this encounter Care Teams Process Analyst Relationship Specialty Start Date End Date Bin Bowman MD [address] [place] [address] PCP - General General Internal Medicine 04/21/1707/11 documented as of this encounter
--- OUTSIDE RECORDS SUMMARY | 2024-07-21 11:31 | XMS_ITS | Encounter Summary ---
Author Organization [facility] [place] [address] Care Team Providers Care Machine Design Checker Name Role Phone Bin Bowman MD Primary Care Provider Reason for Referral * Diagnostic Test (Routine) - Closed Specialty Diagnoses / Procedures Referred By Zeyad mishra Referred To Contact Cardiology Diagnoses H/O cardiac radiofrequency ablation Procedures Mary Contreras PA [facility] [address] [facility] [place] [address] Referral ID Status Reason Start Date Expiration Date V isits Requested Visits Authorized [id number] Closed Specialty Service Requested 08/01/2020 08/26/2020 1 1 Encounter Details Date Type Department Care Team (Late st Contact Info) Description 07/18/2020 Orders Only Cardiology at [address] [phone] Mary Daley PA [facility] [address] H/O cardiac radiofrequency ablation Social [...] 10:[address] [place] [place] [phone] Rachel Carrasco MD [facility] [place] [address] 09/21/2024 11:00 AM [place] [phone] Rachel Carrasco MD [facility] [place] [address] documented as of this encounter Results * [...] detected. ____ Interpreted by Fadi Escobar MD, [facility] Fadi Escobar MD CARDIAC SERVICES ORD ERABLES documented in this encounter Visit Diagnoses Diagnosis H/O cardiac radiofrequency ablation H/O cardiac radiofrequency ablation documented in this encounter Care Teams Machine Design Checker Relationship Specialty Start Date End Date Bin Bowman MD [address] [place] [address] PCP - General General Internal Medicine 04/21/1707/11 documented as of this encounter
--- OUTSIDE RECORDS SUMMARY | 2024-07-21 11:31 | XMS_ITS | Encounter Summary ---
[place] [address] Care Team Providers Care Revenue Tax Specialist Name Role Phone Bin Bowman MD Primary Care Provider [phone] Reason for Visit * Reason Onset Date Comments Questions 07/14/2020 Encounter Details Date Type Department Care Team (Late st Contact Info) Description 07/14/2020 Telephone Cardiology at [address] [phone] Fady Lord RN Questions Social History Tobacco [...] AM [place] [address] Rachel Carrasco MD [facility] [place] [address] 09/21/2024 11:00 AM EST Office [place] [address] Rachel Carrasco MD [facility] [place] [address] documented as of this encounter Visit Diagnoses Not on filedocumented in this encounter Care Teams Revenue Tax Specialist Relationship Specialty Start Date End Date Bin Bowman MD [address] [place] [address] PCP - General General Internal Medicine 04/21/1707/11 documented as of this encounter
--- OUTSIDE RECORDS SUMMARY | 2024-07-21 11:31 | XMS_ITS | Encounter Summary ---
Author Organization [facility] [place] [address] Care Team Providers Care Curbing Stonecutter Name Role Phone Bin Bowman MD Primary Care Provider Encounter Details Date Type Department Care Team (Late st Contact Info) Description 12/15/2020 External Results [place] [phone] Social History Tobacco Use Types Packs/Day Years [...] 10:[address] [place] [phone] Rachel Carrasco MD [facility] [place] [address] 09/21/2024 11:00 AM EST Office [place] [phone] Rachel Carrasco MD [facility] [place] [address] documented as of this encounter Procedures Procedure Name Priority Date/Time Associated Diagnosis Comments ECG SCAN Routine 12/15/2020 documented in this encounter Results * Scan Doc: ECG (12/15/2020) Historical Provider MD [facility] MGR SCAN EX T ORDR/RSLT documented in this encounter Visit Diagnoses Not on filedocumented in this encounter Care Teams Curbing Stonecutter Relationship Specialty Start Date End Date Bin Bowman MD [address] [place] [address] PCP - General General Internal Medicine 04/21/1707/11 documented as of this encounter
--- OUTSIDE RECORDS SUMMARY | 2024-07-21 11:32 | XMS_ITS | Encounter Summary ---
[place] [address] Care Team Providers Care French Instructor Name Role Phone Bin Bowman MD Primary Care Provider [phone] Reason for Visit * Reason Onset Date Comments Nausea 01/16/2018 Encounter Details Date Type Department Care Team (Late st Contact Info) Description 01/16/2018 Telephone [place] [phone] Aydin Lugo RN Nausea Social History Tobacco [...] - 01/16/2018 4:03 PM EST Per Breonna Ambrocio APRN: I did send in a small script [...] 10:[address] [place] [phone] Rachel Carrasco MD [facility] [place] [address] 09/21/2024 11:00 AM EST Office [place] [phone] Rachel Carrasco MD [facility] [place] [address] documented as of this encounter Visit Diagnoses Not on filedocumented in this encounter Care Teams French Instructor Relationship Specialty Start Date End Date Bin Bowman MD [address] [place] [address] PCP - General General Internal Medicine 04/21/1707/11 documented as of this encounter
--- OUTSIDE RECORDS SUMMARY | 2024-07-21 11:32 | XMS_ITS | Encounter Summary ---
[place] [address] Care Team Providers Care Grizzly Worker Name Role Phone Bin Bowman MD Primary Care Provider Encounter Details Date Type Department Care Team (Late st Contact Info) Description 05/07/2020 Telephone Cardiology at [address] [address] Paul Asher DO [facility] [place] [address] Social History Tobacco Use Types Packs/Day Years [...] or consultation Requesting physician: Dr. Coello Location: [place] Indication for transfer request: AF Pertinent clinical [...] of an tiarrythmic plan. Paul Asher DO Chairman & Ceo, PGY-4 05/07/2020 documented in this encounter Plan of Treatment Upcoming Encounters Date Type Department Care Team (Late st Contact Info) Description 09/21/2024 10:[address] [place] [place] [address] Rachel Carrasco MD [facility] [place] [address] 09/21/2024 11:00 AM EST [place] [address] Rachel Carrasco MD [facility] [place] [address] documented as of this encounter Visit Diagnoses Not on filedocumented in this encounter Care Teams Grizzly Worker Relationship Specialty Start Date End Date Bin Bowman MD [address] [place] [address] PCP - General General Internal Medicine 04/21/1707/11 documented as of this encounter
--- OUTSIDE RECORDS SUMMARY | 2024-07-21 11:32 | XMS_ITS | Encounter Summary ---
[place] [address] Care Team Providers Care Banbury Operator Name Role Phone Bin Bowman MD Primary Care Provider [phone] Reason for Visit * Reason Onset Date Comments Prior Authorization 02/03/2018 Encounter Details Date Type Department Care Team (Late st Contact Info) Description 02/03/2018 Telephone [place] [phone] Aydin Lugo RNbusiness analyst project manager Social History Tobacco Use Types Packs/Day Years [...] for the Nexium 40 mg Tracking number: [id number] Start: until 02/02/2019 * Telephone Encounter - Aydin Lugo RN - 02/03/2018 9:25 AM EDT Prior Authorization Medication: esomeprazole Dosage: 40 mg Frequency & Route: PO BID Insurance & Phone #: [place] ID #: [id number] Trialed (dosage, frequency): pantoprazole 40 mg BID, famotidine 20 mg BID, lansoprazole, esomeprazole 40 mg daily 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, nutcracker esophagus Notes: Submitted via covermymeds 02/02 pending documented in this encounter Plan of Treatment Upcoming Encounters Date Type Department Care Team (Late st Contact Info) Description 09/21/2024 10:[address] [place] [address] Rachel Carrasco MD [facility] [place] [address] 09/21/2024 11:00 AM EST [place] [address] Rachel Carrasco MD [facility] [place] [address] documented as of this encounter Visit Diagnoses Not on filedocumented in this encounter Care Teams Banbury Operator Relationship Specialty Start Date End Date Bin Bowman MD [address] [place] [address] PCP - General General Internal Medicine 04/21/1707/11 documented as of this encounter
--- OUTSIDE RECORDS SUMMARY | 2024-07-21 11:32 | XMS_ITS | Encounter Summary ---
[place] [address] Care Team Providers Care Mailroom Courier Name Role Phone Bin Bowman MD Primary Care Provider Encounter Details Date Type Department Care Team (Late st Contact Info) Description 06/05/2018 Telephone Cardiology at [address] [address] Rachana Silver, [facility] [place] [address] Social History Tobacco Use Types Packs/Day Years [...] Miscellaneous Notes * Telephone Encounter - Rachana Silver - 06/05/2018 8:15 PM EDT Telephone Consult Note Initial Contact Date: 06/05/2018 Referring Provider: Chavo Deleon MD Patient Location: [facility] Presenting Symptoms per OSH: Rolo Aguilar is a 47 y.o. male with past medical history significant for HTN, HLD, GERD, morbid obesity, depression, bipolar, and inferior STEMI in 07/2017 who presented to [facility] with complaints of epigastric pain and nausea with some associated shoulder and back pain. The patient has chronic epigastric pain and nausea related to gallbladder disease. He is awaiting cholecystectomy in July (once he is done with 1 year of DAPT s/p his NH). The symptoms feel similar today to his chronic pain although are slightly worse. The pain has been constant since 10:30 AM. No chest pain, no shortness of breath, no diaphoresis. This pain does not feel similar to his pain with his prior NH. His back and shoulder pain is reproducible. [...] 10:[address] [place] [address] Rachel Carrasco MD [facility] [place] [address] 09/21/2024 11:00 AM EST Office [place] [phone] Rachel Carrasco MD [facility] [place] [address] documented as of this encounter Visit Diagnoses Not on filedocumented in this encounter Care Teams Mailroom Courier Relationship Specialty Start Date End Date Bin Bowman MD [address] [place] [address] PCP - General General Internal Medicine 04/21/1707/11 documented as of this encounter
--- OUTSIDE RECORDS SUMMARY | 2024-07-21 11:32 | XMS_ITS | Encounter Summary ---
Author Organization [facility] Address [facility] [place] [address] Care Team Providers Care Configuration Engineer Name Role Phone Bin Bowman MD Primary Care Provider [phone] Reason for Visit * Consultation (Routine) - Closed Specialty Diagnoses / Procedures Referred By Contact Referred To Contact Electrophysiology / Cardiology Diagnoses atrial fibrillation Procedures atrial fibrillation Jose Culver MD [address] [place] [address] [facility] [address] [place] [phone] Referral ID Status Reason Start Date Expiration Date V isits Requested Visits Authorized [id number] Closed Consult, Test & Treat 05/09/2020 05/09/2021 1 1 Encounter Details Date Type Department Care Team (Latest Contact Info) Description 05/16/2020 2:00 PM EDT TH Visit (TeleHealth) Cardiology at [address] [address] Fadi Escobar MD [facility] [place] [address] SVT (supraventricular tachycardia); Atrial tachycardia; [...] Cardiac Electrophysiology Telephone Visit May 16, 2020 Human Resources Admin: Jeremie Patton MD Primary Care Physician: Bin Bowman MD Reason for Consultation: Supraventricular tachycardia, atrial flutter/fibrillation, and wide complex tachycardia Backgound: Mr. Aguilar is a 49 year old gentleman referred by Jose Culver MD, for several recent manifestly symptomatic cardiac dysrhythmias. Mr. 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 Tests: Stress Imaging (March 14, 2019; [facility]): Moderate size severely intense fixed inferolateral defect. [...] Electrocardiogram (April 27, 2020): Sinus rhythm 82/minute, TN 156 m, QRS duration 102 ms, QTc [...] 10:[address] [place] [place] [address] Rachel Carrasco MD [facility] [place] [address] 09/21/2024 11:00 AM EST [place] [address] Rachel Carrasco MD [facility] [place] [address] documented as of this encounter Procedures Procedure [...] corresponding intermittently to narrow complex tachycardia with ebrxc-rc-hoi RP interval, documented sustained wide complex tachycardia [...] a cycle length of 1020 milliseconds (ms): TN: ?150 ms (P wave duration 140 ms) AH: ? 60 ms HV: ? 50 ms QRS: ?? 100 ms QT: ?410 ms 2) Atrial overdrive pacing was accomplished from the proximal coronary sinus (CS), and the atrioventricular (AV) Wenckebach block CL was observed at 330 ms. There was no pre-excitation or conduction aberrancy identified. The purnwpcb-wh-SNM interval > QRS-QRS interval just prior to [...] a similar result other than for transient TN interval prolongation. A subsequent 30 mg intravenous [...] drop (while observing for changes in the TN interval and for the emergence of an [...] the catheter away resulted in almost immediate jain of 1:1 conduction, with normal manifest conduction [...] Dose: ?443 mGy Total Radiofrequency Energy Delivered: 79596 Joules Total Actual Ablation Time: ?16:54 minuts:seconds [...] tachycardia documented in this encounter Care Teams Configuration Engineer Relationship Specialty Start Date End Date Bin Bowman MD [address] [place] [address] PCP - General General Internal Medicine 04/21/1707/11 documented as of this encounter
--- OUTSIDE RECORDS SUMMARY | 2024-07-21 11:32 | XMS_ITS | Encounter Summary ---
Author Organization [facility] [place] [address] Care Team Providers Care Training And Development Professional Name Role Phone Bin Bowman MD Primary Care Provider Reason for Visit * Reason Comments Medication Refill Encounter Details Date Type Department Care Team (Late st Contact Info) Description 06/27/2018 Refill [place] [phone] Hawk Coker DO [facility] HEMATOLOGY/[place] [address] Social History Tobacco Use Types Packs/Day Years [...] [place] [phone] Rachel Carrasco MD [facility] [place] [address] 09/21/2024 11:00 AM EST Office [place] [address] Rachel Carrasco MD [facility] [place] [address] documented as of this encounter Visit Diagnoses Not on filedocumented in this encounter Care Teams Training And Development Professional Relationship Specialty Start Date End Date Bin Bowman MD [address] [place] [address] PCP - General General Internal Medicine 04/21/1707/11 documented as of this encounter
--- OUTSIDE RECORDS SUMMARY | 2024-07-21 11:32 | XMS_ITS | Encounter Summary ---
Author Organization [facility] [place] [address] Care Team Providers Care Administrative Resources Associate Name Role Phone Bin Bowman MD Primary Care Provider Encounter Details Date Type Department Care Team (Latest Contact Info) Description 06/05/2020 10:08 AM EDT - 06/05/2020 11:59 PM EDT Hospital Encounter [place] [address] Fadi Escobar MD [facility] [place] [address] Heart palpitations Discharge Disposition: Home Social History [...] Sustained Release 24 hrIndications:Coronary artery disease involving wales coronary artery of wales heart without angina pectoris,Essential hypertension,Heart palpitations Take [...] 10:[address] [place] [place] [address] Rachel Carrasco MD [facility] [place] [address] 09/21/2024 11:00 AM EST [place] [phone] Rachel Carrasco MD [facility] [place] [address] Pending Results Name Type Priority Associated Diagnoses Date /Time Holter Monitor 48hr Cardiac Services Routine Heart palpitations 06/05/2020 10:44 AM EDT Scheduled Orders Name Type Priority Associated Diagnoses Orde r Schedule Holter Monitor 48hr Cardiac Services Routine Heart palpitations 1 Occurrences starting 06/05/2020 until 06/05/2020 documented as of this encounter Visit Diagnoses Diagnosis Heart palpitations Palpitations documented in this encounter Care Teams Administrative Resources Associate Relationship Specialty Start Date End Date Bin Bowman MD [address] [place] [address] PCP - General General Internal Medicine 04/21/1707/11 documented as of this encounter
--- OUTSIDE RECORDS SUMMARY | 2024-07-21 11:32 | XMS_ITS | Encounter Summary ---
Author Organization [facility] [place] [address] Care Team Providers Care Wildlife Ecology Professor Name Role Phone Bin Bowman MD Primary Care Provider Encounter Details Date Type Department Care Team (Latest Contact Info) Description 02/16/2018 - 02/16/2018 11:59 PM EDT Hospital Encounter [place] [address] Colt Hewitt MD [facility] [place] [address] Discharge Disposition: Home Social History Tobacco Use [...] 10:[address] [place] [address] Rachel Carrasco MD [facility] [place] [address] 09/21/2024 11:00 AM EST Office [place] [address] Rachel Carrasco MD [facility] [place] [address] documented as of this encounter Procedures Procedure Name Priority Date/Time Associated Diagnosis Comments FILM LIBRARY STORAGE ONLY NUCLEAR MEDICINE Routine 02/16/2018 12:00 AM EDT documented in this encounter Results * Film Library- Storage Only nuclear medicine (02/16/2018 12:00 AM EDT) Narrative [facility] - 02/23/2018 2:58 PM EDT This exam is for storage only and is auto-finalizing. Colt Hewitt MD IMG FILM LIBRARY OR DERABLES Performing Organization Address City/State/[facility] Co de Phone Number [place], [place] documented in this encounter Visit Diagnoses Not on filedocumented in this encounter Care Teams Wildlife Ecology Professor Relationship Specialty Start Date End Date Bin Bowman MD [address] [place] [address] PCP - General General Internal Medicine 04/21/1707/11 documented as of this encounter
--- OUTSIDE RECORDS SUMMARY | 2024-07-21 11:32 | XMS_ITS | Encounter Summary ---
Author Organization [facility] [place] [address] Care Team Providers Care Test Eng Name Role Phone Bin Bowman MD Primary Care Provider Encounter Details Date Type Department Care Team (Late st Contact Info) Description 03/25/2019 4:00 PM EDT Office [place] [address] Breonna Ambrocio, [facility] [address] [place] [address] Bloating; Lower abdominal pain; Gastroesophageal reflux disease, [...] 2. Stool studies at your convenience. Please tack picker the supplies from [place] and send me a message when you [...] Ambrocio APRN - 03/25/2019 4:00 PM EDT Anthropologist Physical: Breonna Ambrocio APRN PCP: Bin Bowman MD [...] gas. No blood or mucus in stool. Ralston type #4-5. Denies abdominal cramping and fecal urgency. Denies constipation. Anxiety has improved since starting mindfulness mediation classes. No longer taking geodon. Has changed his diet since his [place] last year. Eating much healthier and fewer [...] Was using carafate for a little while. [place] this helped. Had an EGD in September 2016. Was told everything is normal, although patient states he feels he would like another EGD done by a warper fixer and not a general surgeon. Denies dysphagia, odynophagia, globus. Denies regurgitation, nausea, vomiting. Decreased appetite. Early satiety. Post-prandial bloating frequently. Denies chronic NSAID use. No anemia. Abdominal pain related to heartburn and bloating. Denies diarrhea and constipation. No cramping or urgency. No blood or mucus in stool. No anal or rectal pain. Will get chills in the sql manager or late at night. 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 Has [...] provided 3. KUB to be done at [facility] 4. Once I get the stool study results, I will treat you with antibiotics 5. I will send a message with further recommendations pending results of testing. Patient agrees with the above plan. I did my best to answer their questions. Signed, Breonna Ambrocio APRN 03/26/19 8:01 AM Section of Gastroenterology & Hepatology [facility] ?? documented in this encounter Plan of Treatment Upcoming Encounters Date Type Department Care Team (Late st Contact Info) Description 09/21/2024 10:[address] [place] [address] Rachel Carrasco MD [facility] [place] [address] 09/21/2024 11:00 AM EST [place] [address] Rachel Carrasco MD [facility] [place] [address] documented as of this encounter Visit Diagnoses Diagnosis Bloating Flatulence, eructation, and gas pain Lower abdominal pain Abdominal pain, other specified site Gastroesophageal reflux disease, esophagitis presence not specified documented in this encounter Care Teams Test Eng Relationship Specialty Start Date End Date Bin Bowman MD [address] [address] PCP - General General Internal Medicine 04/21/1707/11 documented as of this encounter
--- OUTSIDE RECORDS SUMMARY | 2024-07-21 11:32 | XMS_ITS | Encounter Summary ---
Author Organization [facility] [place] [address] Care Team Providers Care Research Manager Name [...] Expiration Date Visits Re quested Visits Authorized [id number] 1 1 Encounter Details Date Type Department Care Team (Latest Contact Info) Description 07/21/2018 11:16 AM EDT - 07/21/2018 4:12 PM EDT Hospital En[place] [phone] Colt Hewitt MD [facility] [place] [address] Discharge Disposition: Home Social History Tobacco Use [...] have any questions or concerns, please call [phone] before 5pm Friday through Friday; or [phone] after 5pm and on weekends. Diet: regular [...] 11:40 AM Colt Hewitt MD [facility] documented in this encounter Medications at [...] 2.49) performed by Yusuf Tucker MD at [facility] ENDOSCOPY ??? PRO UPPER GI ENDOSCOPY, DIAGNOSTIC N/A 12/29/2017 EGD, UPPER GI ENDOSCOPY performed by Yusuf Tucker MD at [facility] END[facility] SH: Non smoker Objective: Most Recent [...] Hewitt MD - 07/21/2018 4:12 PM EDT [facility] Operative Note Patient Name: Rolo Aguilar : [id number] MR#: [id number] Case Date: 07/21/2018 Surgeon: Surgeon(s) and Role: * Colt Hewitt MD - Primary * Guerline Traore MD - Resident-Elementary Math Tutor * Jesse Pollack MD - Fellow Preoperative [...] 10:[address] [place] [address] Rachel Carrasco MD [facility] [place] [address] 09/21/2024 11:00 AM [place] [address] Rachel Carrasco MD [facility] [place] [address] documented as of this encounter Procedures Procedure [...] PM EDT 07/21/2018 2:20 PM EDT Narrative [facility] - 07/21/2018 2:20 PM EDT Specimen requisition ordered. ??Separate Pathology report to follow Resulting Agency Comment Spec In Lab Clot Hewitt MD PATHOLOGY/CYTOLOGY ORDERABLES [facility] [place] [address] * Surgical Pathology Report (07/21/2018 1:39 PM EDT) Final Diagnosis [id number] ? Location: [facility]; [facility]; The signing pathologist has (i) examined the [...] Durbin MD Verified: ??07/24/2018 ?Pathologist Performed at: ??-[facility] Dept. of Pathology, [place], [place] CLINICAL INFORMATION Specimen Submitted: A [...] black. Sections/Processin g: Cystic duct margin and veterans service representative gallbladder body sections submitted. (R1) ??rm 07/24/2018 4:34 PM EDT [facility] GALLBLADDER STRUCTURE / Unknown 07/21/2018 1:39 PM EDT 07/21/2018 1:39 PM EDT GALLBLADDER STRUCTURE / Unknown 07/21/2018 1:39 PM EDT 07/21/2018 1:39 PM EDT Colt Hewitt MD PATHOLOGY/CYTOLOGY ORDERABLES [facility] [place] [address] * Specimen to Pathology (07/21/2018 1:39 PM EDT) AP Specimen 07/21/2018 1:39 PM EDT 07/21/2018 2:20 PM EDT Narrative [facility] - 07/21/2018 2:20 PM EDT Specimen requisition ordered. ??Separate Pathology report to follow Resulting Agency Comment Spec In Lab Colt Hewitt MD PATHOLOGY/CYTOLOGY ORDERABLES [facility] [place] [address] * XR Fluoro No Rad <1Hr - OR Use (07/21/2018 1:30 PM EDT) Narrative RAD - 07/21/2018 1:42 PM EDT This order does not need a radiologist interpretation. ?? Colt Hewitt MD IMG FLUORO ORDERABL ES Performing Organization Address [facility] Co de Phone Number [place], [place] documented in this encounter Visit Diagnoses [...] 1445, Routine 1445 (Given - Provid er: Cinita Vieira RN) Continuous Medication Order 07/19/2018 07/20/2018 [...] Routine documented in this encounter Care Teams Research Manager Relationship Specialty Start Date End Date Bin Bowman MD [address] [place] [address] PCP - General General Internal Medicine 04/21/1707/11 documented as of this encounter
--- OUTSIDE RECORDS SUMMARY | 2024-07-21 11:32 | XMS_ITS | Encounter Summary ---
Author Organization [facility] [place] [address] Care Team Providers Care Mathematical Engineer Name Role Phone Bin Bowman MD Primary Care Provider Reason for Visit * Reason Onset Date Comments Medication Refill 05/26/2020 Encounter Details Date Type Department Care Team (Late st Contact Info) Description 05/26/2020 Refill Cardiology at [address] [phone] Jeremie Patton MD [facility] [place] [address] Medication Refill Social History Tobacco Use Types [...] 10:[address] [place] [phone] Rachel Carrasco MD [facility] UROLOGY [place], [place] [address] 09/21/2024 11:00 AM EST Office [place] [address] Rachel Carrasco MD [facility] [place] [address] documented as of this encounter Visit Diagnoses Diagnosis Coronary disease Essential hypertension Unspecified essential hypertension Heart palpitations Palpitations documented in this encounter Care Teams Mathematical Engineer Relationship Specialty Start Date End Date Bin Bowman MD [address] [place] [address] PCP - General General Internal Medicine 04/21/1707/11 documented as of this encounter
--- OUTSIDE RECORDS SUMMARY | 2024-07-21 11:32 | XMS_ITS | Encounter Summary ---
[place] [address] Care Team Providers Care Operating Manager Name Role Phone Bin Bowman MD Primary Care Provider Encounter Details Date Type Department Care Team (Late st Contact Info) Description 06/22/2020 Telephone Cardiology at [address] [phone] Fady Lord RN Social History Tobacco Use [...] 10:[address] [place] [address] Rachel Carrasco MD [facility] [place] [address] 09/21/2024 11:00 AM EST Office [place] [phone] Rachel Carrasco MD [facility] [place] [address] documented as of this encounter Visit Diagnoses Not on filedocumented in this encounter Care Teams Operating Manager Relationship Specialty Start Date End Date Bin Bowman MD [address] [place] [address] PCP - General General Internal Medicine 04/21/1707/11 documented as of this encounter
--- OUTSIDE RECORDS SUMMARY | 2024-07-21 11:32 | XMS_ITS | Encounter Summary ---
[place] [address] Care Team Providers Care Inspector Machine Parts Name Role Phone Bin Bowman MD Primary Care Provider Encounter Details Date Type Department Care Team (Late st Contact Info) Description 07/22/2018 Telephone [place] [phone] Rachana Wild, RN Social History Tobacco Use [...] scanned into the pt's chart from Dr. Montse. I let the pt's know that while [...] 10:[address] [place] [place] [address] Rachel Carrasco MD [facility] [place] [address] 09/21/2024 11:00 AM EST [place] [address] Rachel Carrasco MD [facility] [place] [address] documented as of this encounter Visit Diagnoses Not on filedocumented in this encounter Care Teams Inspector Machine Parts Relationship Specialty Start Date End Date Bin Bowman MD [address] [address] PCP - General General Internal Medicine 04/21/1707/11 documented as of this encounter
--- OUTSIDE RECORDS SUMMARY | 2024-07-21 11:32 | XMS_ITS | Encounter Summary ---
[place] [address] Care Team Providers Care Field Service Rep Name Role Phone Bin Bowman MD Primary Care Provider Encounter Details Date Type Department Care Team (Late st Contact Info) Description 06/07/2020 Telephone Cardiology at [address] [phone] Fady Lord RN Social History Tobacco Use [...] going to reach out to his general commercial manager Dr. Culver to assist with replacing the [...] someone do it at his office in [place]? documented in this encounter Plan of Treatment Upcoming Encounters Date Type Department Care Team (Late st Contact Info) Description 09/21/2024 10:[address] [place] [address] Rachel Carrasco MD [facility] [place] [address] 09/21/2024 11:00 AM EST Office [place] [address] Rachel Carrasco MD [facility] [place] [address] documented as of this encounter Visit Diagnoses Not on filedocumented in this encounter Care Teams Field Service Rep Relationship Specialty Start Date End Date Bin Bowman MD [address] [place] [address] PCP - General General Internal Medicine 04/21/1707/11 documented as of this encounter
--- OUTSIDE RECORDS SUMMARY | 2024-07-21 11:32 | XMS_ITS | Encounter Summary ---
Author Organization [facility] [place] [address] Care Team Providers Care Freight Clerk Name Role Phone Bin Bowman MD Primary Care Provider [phone] Encounter Details Date Type Department Care Team (Late st Contact Info) Description 06/05/2018 External [place] [address] Rachana Silver DO [facility] [place] [address] Social History Tobacco Use Types Packs/Day Years [...] 10:[address] [place] [phone] Rachel Carrasco MD [facility] [place] [address] 09/21/2024 11:00 AM EST [place] [address] Rachel Carrasco MD [facility] [place] [address] documented as of this encounter Procedures Procedure Name Priority Date/Time Associated Diagnosis Comments ECG SCAN Routine 06/05/2018 documented in this encounter Results * Scan Doc: ECG (06/05/2018) Rachana Silver DO MEDIA MGR SCAN EX T ORDR/RSLT documented in this encounter Visit Diagnoses Not on filedocumented in this encounter Care Teams Freight Clerk Relationship Specialty Start Date End Date Bin Bowman MD [address] [place] [address] PCP - General General Internal Medicine 04/21/1707/11 documented as of this encounter
--- OUTSIDE RECORDS SUMMARY | 2024-07-21 11:32 | XMS_ITS | Encounter Summary ---
Author Organization [facility] [place] [address] Care Team Providers Care Jack Frame Tender Name Role Phone Bin Bowman MD Primary Care Provider Encounter Details Date Type Department Care Team (Late st Contact Info) Description 02/05/2018 Orders [place] [phone] Breonna Ambrocio, RESEARCH AND DEVELOPMENT ENGINEER [address] [place] [address] Gastroesophageal reflux disease, esophagitis presence not specified; [...] 10:[address] [place] [place] [address] Rachel Carrasco MD [facility] [address] 09/21/2024 11:00 AM EST [place] [address] Rachel Carrasco MD [facility] [place] [address] documented as of this encounter Visit Diagnoses Diagnosis Gastroesophageal reflux disease, esophagitis presence not specified Epigastric pain Abdominal pain, epigastric documented in this encounter Care Teams Jack Frame Tender Relationship Specialty Start Date End Date Bin Bowman MD [address] [place] [address] PCP - General General Internal Medicine 04/21/1707/11 documented as of this encounter
--- OUTSIDE RECORDS SUMMARY | 2024-07-21 11:32 | XMS_ITS | Encounter Summary ---
Author Organization [facility] [place] [address] Care Team Providers Care Explosives Engineer Name Role Phone Bin Bowman MD Primary Care Provider Reason for Visit * Auth/Cert Specialty Diagnoses / Procedures Referred By Zeyad mishra Referred To Contact Diagnoses BILIARY COLIC Procedures PRO LAP, CHOLECYSTECTOMY/GRAPH PRO UNLISTED LAPAROSCOPIC PX LVR LAPAROSCOPIC CHOLECYSTECTOMY WITH CHOLANGIOGRAM (WRVU 11.47) LAPAROSCOPIC LIVER BIOPSY (WRVU 16.52) Referral ID Status Reason Start Date Expiration Date Visits Re quested Visits Authorized [id number] 1 1 Encounter Details Date Type Department Care Team (Late st Contact Info) Description 07/21/2018 12:20 PM EDT Anesthesia Event [place] [address] Anali Smith MD [facility] [place] [place] [address] Kim Osorio CRNA [facility] [place] [address] Anesthesia Record Procedure Summary Procedure Name Responsible Anesthesiologist Anesthesia Start Time Anesthesia Stop Time LAPAROSCOPIC CHOLECYSTECTOMY WITH CHOLANGIOGRAM (WRVU 11.47) (Abdomen) Anali Smith MD 07/21/18 1220 07/21/18 1415 Events Date Time Event Comment 07/21/2018 1220 Start 1223 AN Verify 1224 An Start Data 1228 An Induction 1230 An Intubation 1231 Anesthesia Ready 1251 Procedure Start 1311 Break/Relief In VAZQUEZ [facility], BIODIESEL DIVISION MANAGER 1333 Break/Relief In VAZQUEZ BAL JOSE ANGEL, BIODIESEL DIVISION MANAGER 1404 Extubation/LMA Out Patient h emodynamically stable with adequate tidal volumes and RR. SXNd and extubated awake to FM. Transferred to recovery on Fm and FIO2. Report to RN. VSPalomo. 1404 an stop data 1415 Recovery or [...] 1157; median cubital vein (antecubital fossa), left; ocna-dcf-rqhxyj catheter system; 18 gauge; uri obrien; 07/21/18; [...] 07/10/20; 1627 07/21/18 1230 by Kim Osorio BIODIESEL DIVISION MANAGER 07/10/20 1627 by Autumn Dobson RN Incision 07/21/18; 1252; abdomen; laparoscopic punctures (specify) (Multiple trocar sites. ); 07/10/20; 1627 07/21/18 1252 by Adriana Neil RN 07/10/20 1627 by Autumn Dobson, RN documented in this encounter Social History [...] MD - 07/21/2018 2:57 PM EDT [facility] Department of Anesthesiology Post-procedure Note Patient: Rolo Aguilar Procedure Summary Date Anesthesia Start Anesthesia Stop Room / Location 07/21/18 1220 1415 [facility] OR 26 / MH MAIN OR Procedure Diagnosis Surgeon Responsible Provider LAPAROSCOPIC CHOLECYSTECTOMY WITH CHOLANGIOGRAM (WRVU 11.47) (N/A Abdomen); LAPAROSCOPIC LIVER BIOPSY (WRVU 16.52) (N/A Abdomen) (BILIARY COLIC) Colt Hewitt MD Hartman, Gregg S, MD All Anesthesia Providers: Anesthesiologist: Anali Smith MD BIODIESEL DIVISION MANAGER: Kim Osorio CRNA Most Recent Vitals: 07/21/18 1430 BP: (!) 155/97 Pulse: Resp: 16 Temp: SpO2: 99% Pain 7 (07/21/18 1430) Patient Location: PACU/SD Level of Consciousness: Awake and Alert Pain [...] by Yusuf Tucker MD at [facility] ENDOSCOPY ??? PRO UPPER GI ENDOSCOPY, DIAGNOSTIC N/A 12/29/2017 EGD, UPPER GI ENDOSCOPY performed by Yusuf Tucker MD at [facility] Social History Substance Use Topics ??? [...] consented to blood products. Plan discussed with BIODIESEL DIVISION MANAGER. PAT Staff Note documented in this encounter Plan of Treatment Upcoming Encounters Date Type Department Care Team (Late st Contact Info) Description 09/21/2024 10:[address] [place] [address] Rachel Carrasco MD [facility] [place] [place] [address] 09/21/2024 11:00 AM EST Office [place] [address] Rachel Carrasco MD [facility] [place] [place] [address] documented as of this encounter Visit Diagnoses [...] mg documented in this encounter Care Teams Explosives Engineer Relationship Specialty Start Date End Date Bin Bowman MD [address] [place] [address] PCP - General General Internal Medicine 04/21/1707/11 documented as of this encounter
--- OUTSIDE RECORDS SUMMARY | 2024-07-21 11:32 | XMS_ITS | Encounter Summary ---
[place] [address] Care Team Providers Care Horticultural Agent Name Role Phone Bin Bowman MD Primary Care Provider Reason for Visit * Reason Comments GI Problem * Consultation (Routine) - Closed Specialty Diagnoses / Procedures Referred By Zeyad mishra Referred To Contact Gastroenterology Diagnoses Elevated LFTs Breonna Ambrocio, B[facility] [address] [place] [address] [facility] Gastro [address] [place] [address] Referral ID Status Reason Start Date Expiration Date V isits Requested Visits Authorized [id number] Closed Consult, Test & Treat 10/07/2017 10/07/2018 1 1 Encounter Details Date Type Department Care Team (Late st Contact Info) Description 01/20/2018 10:30 AM EDT Office [place] [address] Rachel Farrar APRN [facility] [place] [address] Nausea without vomiting; Elevated liver [...] HEPATOLOGY NEW PATIENT CONSULTATION Rolo Aguilar 1970 [employer] LATHER: RACHEL FARRAR APRN PCP: Bin Bowman MD [...] ??? 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 PHYSICAL EXAM Vitals: 01/20/18 1028 [...] Farrar APRN Section of Gastroenterology [place] [address] Copy: Bin Bowman MD [address] / [facility] [address] 35 minutes of this 38 minute visit in face to face discussion regarding disease, prognosis and treatment documented in this encounter Plan of Treatment Upcoming Encounters Date Type Department Care Team (Late st Contact Info) Description 09/21/2024 10:[address] [place] [place] [phone] Rachel Carrasco MD [facility] [place] [address] 09/21/2024 11:00 AM EST [place] [phone] Rachel Carrasco MD [facility] [place] [place] [address] documented as of this encounter Visit Diagnoses Diagnosis Nausea without vomiting Elevated liver enzymes Nonspecific elevation of levels of transaminase or lactic acid dehydrogenase (LDH) documented in this encounter Care Teams Horticultural Agent Relationship Specialty Start Date End Date Bin Bowman MD [address] [address] PCP - General General Internal Medicine 04/21/1707/11 documented as of this encounter
--- OUTSIDE RECORDS SUMMARY | 2024-07-21 11:32 | XMS_ITS | Encounter Summary ---
Author Organization [facility] [place] [address] Care Team Providers Care In Store Marketing Associate Name Role Phone Bin Bowman MD Primary Care Provider [phone] Reason for Visit * Reason Onset Date Comments Medication Refill 05/26/2020 Encounter Details Date Type Department Care Team (Late st Contact Info) Description 05/26/2020 Refill Cardiology at [address] [phone] Jeremie Patton MD [facility] [place] [address] Medication Refill Social History Tobacco Use Types [...] 10:[address] [place] [place] [phone] Rachel Carrasco MD [facility] UROLOGY [place], [place] [address] 09/21/2024 11:00 AM EST [place] [address] Rachel Carrasco MD [facility] [address] documented as of this encounter Visit Diagnoses Diagnosis Coronary disease Essential hypertension Unspecified essential hypertension documented in this encounter Care Teams In Store Marketing Associate Relationship Specialty Start Date End Date Bin Bowman MD [address] [place] [address] PCP - General General Internal Medicine 04/21/1707/11 documented as of this encounter
--- OUTSIDE RECORDS SUMMARY | 2024-07-21 11:32 | XMS_ITS | Encounter Summary ---
[place] [address] Care Team Providers Care Silviculture Forester Name Role Phone Bin Bowman MD Primary Care Provider Encounter Details Date Type Department Care Team (Late st Contact Info) Description 05/19/2020 Telephone Cardiology at [address] [phone] Lennie Garcia, RN Social History Tobacco Use [...] pt regarding Zio & insurance coverage Has [place] Medicaid but notified pt [facility] offers pt assistance program. Pt contacted Meghna who notified that Zio would be no cost to him. Spoke w/ [facility] Billing dept who reports that 's billing portion may be roughly $400 out of pocket. Pt & will be calling [place] medicaid & the billing department next week to determine how they would like to move forward. Dr. Escobar OK'd 48 Hr Holter monitor if they choose to not move forward with Zio documented in this encounter Plan of Treatment Upcoming Encounters Date Type Department Care Team (Late st Contact Info) Description 09/21/2024 10:[address] [place] [place] [address] Rachel Carrasco MD [facility] [place] [address] 09/21/2024 11:00 AM [place] [phone] Rachel Carrasco MD [facility] [place] [address] documented as of this encounter Visit Diagnoses Not on filedocumented in this encounter Care Teams Silviculture Forester Relationship Specialty Start Date End Date Bin Bowman MD [address] [place] [address] PCP - General General Internal Medicine 04/21/1707/11 documented as of this encounter
--- OUTSIDE RECORDS SUMMARY | 2024-07-21 11:32 | XMS_ITS | Encounter Summary ---
Author Organization [facility] [place] [address] Care Team Providers Care Heavy Forger Name Role Phone Bin Bowman MD Primary Care Provider Encounter Details Date Type Department Care Team (Late st Contact Info) Description 01/16/2018 Orders [place] [phone] Breonna Ambrocio, DENTAL AMALGAM PROCESSOR [address] [place] [address] Social History Tobacco Use Types Packs/Day Years [...] [place] [phone] Rachel Carrasco MD [facility] [place] [address] 09/21/2024 11:00 AM EST Office [place] [address] Rachel Carrasco MD [facility] [place] [address] documented as of this encounter Visit Diagnoses Not on filedocumented in this encounter Care Teams Heavy Forger Relationship Specialty Start Date End Date Bin Bowman MD [address] [address] PCP - General General Internal Medicine 04/21/1707/11 documented as of this encounter
--- OUTSIDE RECORDS SUMMARY | 2024-07-21 11:32 | XMS_ITS | Encounter Summary ---
[place] [address] Care Team Providers Care Numerical Control Router Operator Name Role Phone Bin Bowman MD Primary Care Provider [phone] Reason for Visit * Reason Onset Date Comments Follow-up 06/01/2020 Encounter Details Date Type Department Care Team (Late st Contact Info) Description 06/01/2020 Telephone Cardiology at [address] [phone] Fady Lord RN Follow-up Social History Tobacco [...] 10:[address] [place] [place] [address] Rachel Carrasco MD [facility] [place] [address] 09/21/2024 11:00 AM EST Office [place] [phone] Rachel Carrasco MD [facility] [place] [address] documented as of this encounter Visit Diagnoses Not on filedocumented in this encounter Care Teams Numerical Control Router Operator Relationship Specialty Start Date End Date Bin Bowman MD [address] [place] [address] PCP - General General Internal Medicine 04/21/1707/11 documented as of this encounter
--- OUTSIDE RECORDS SUMMARY | 2024-07-21 11:32 | XMS_ITS | Encounter Summary ---
[place] [address] Care Team Providers Care Sail Finisher Hand Name Role Phone Bin Bowman MD Primary Care Provider Encounter Details Date Type Department Care Team (Late st Contact Info) Description 03/06/2018 Telephone [place] [phone] Dimple Wolf, RN Social History Tobacco Use [...] Notes * Telephone Encounter - Dimple Wolf, FLAVIA - 03/06/2018 1:06 PM EDT Returned call [...] 10:[address] [place] [place] [address] Rachel Carrasco MD [facility] [place] [address] 09/21/2024 11:00 AM EST [place] [address] Rachel Carrasco MD [facility] [place] [address] documented as of this encounter Visit Diagnoses Not on filedocumented in this encounter Care Teams Sail Finisher Hand Relationship Specialty Start Date End Date Bin Bowman MD [address] [place] [address] PCP - General General Internal Medicine 04/21/1707/11 documented as of this encounter
--- OUTSIDE RECORDS SUMMARY | 2024-07-21 11:32 | XMS_ITS | Encounter Summary ---
Author Organization [facility] [place] [address] Care Team Providers Care Deputy Grand Jury Name Role Phone Bin Bowman MD Primary Care Provider [phone] Encounter Details Date Type Department Care Team (Late st Contact Info) Description 06/22/2020 Orders Only Cardiology at [address] [phone] Fadi Escobar MD [facility] [place] [address] Heart palpitations Social History Tobacco Use Types [...] AM EST [place] [phone] Rachel Carrasco MD [facility] [address] 09/21/2024 11:00 AM EST Office [place] [address] Rachel Carrasco MD [facility] [place] [address] documented as of this encounter Visit Diagnoses Diagnosis Heart palpitations Palpitations documented in this encounter Care Teams Deputy Grand Jury Relationship Specialty Start Date End Date Bin Bowman MD [address] [place] [address] PCP - General General Internal Medicine 04/21/1707/11 documented as of this encounter
--- OUTSIDE RECORDS SUMMARY | 2024-07-21 11:32 | XMS_ITS | Encounter Summary ---
Author Organization [facility] [place] [address] Care Team Providers Care Video System Repairer Name Role Phone Bin Bowman MD Primary Care Provider Reason for Visit * Reason Comments Pain Management * Consultation (Routine) - Closed Specialty Diagnoses / Procedures Referred By Contac t Referred To Contact Pain Management Diagnoses Mononeuropathy, unspecified abdominal nerve entrapment/CT 03/13/19 Jude Dennison V, [address] [place] [address] [facility] [address] [place] [phone] Referral ID Status Reason Start Date Expiration Date Visits Re quested Visits Authorized [id number] Closed 05/04/2019 05/03/2020 1 1 Encounter Details Date Type Department Care Team (Late st Contact Info) Description 06/04/2019 8:30 AM EDT Office Visit [facility] [place] [address] Linh Lux MD [facility] [place] [address] Abdominal wall pain in right upper quadrant; [...] Lux MD - 06/04/2019 8:30 AM EDT [facility] Initial Consultation Note DOS: 06/04/19 : 1970 Rolo Aguilar is a 48 y.o. year old male with a PMH including MO who presents to the pain clinic today at the referral of Jude Dennison PA [address] [place] [address] for consultation regarding Abdominal Pain. CC: Chief [...] to get offof plavix due to recent MO prior to lap sourav (one year ago which was not helpful in resolving his symptoms. Never any bowel symptoms but had associated nausea. Taking lansoprazole once daily in the morning and famotidine at night before bed. Was using carafate for a little while. Davis this helped. Approximately 6 weeks ago his [...] 16.52) performed by Colt Hewitt MD at [facility] MAIN OR ??? PRO UPPER GI ENDOSCOPY, BIOPSY N/A 12/29/2017 UPPER GASTROINTESTINAL ENDOSCOPY,WITH BIOPSY SINGLE OR MULTIPLE (WRVU 2.49) performed by Yusuf Tucker MD at [facility] ENDOSCOPY ??? PRO UPPER GI ENDOSCOPY, DIAGNOSTIC N/A 12/29/2017 EGD, UPPER GI ENDOSCOPY performed by Yusuf Tucker MD at [facility] ENDOSCOPY FAMILY HISTORY: See ORT SOCIAL HISTORY: Tobacco : Quit 8 years ago Alcohol : None Recreational drug use : Medical cannabis helpful but stopped using 4 months ago Work :[employer] Home : At home with and mom [...] affect, A&Ox3 , answers questions appropriately Neurologic: assembler 1st shift - grossly intact Reflexes - 2+ and [...] care. Linh Lux MD [facility] Laundry Worker of Anesthesiology [facility] [address] [address] / [facility] CC: Jude Dennison PA [address] [place] [address] documented in this encounter Plan of Treatment Upcoming Encounters Date Type Department Care Team (Late st Contact Info) Description 09/21/2024 10:[address] Scan at [place] [phone] Rachel Carrasco MD [facility] [place] [address] 09/21/2024 11:00 AM EST Office Visit Urology at [place] [phone] Rachel Carrasco MD [facility] [place] [address] documented as of this encounter Visit Diagnoses Diagnosis Abdominal wall pain in right upper quadrant Abdominal pain, right upper quadrant Myofascial pain Mylagia and myositis, unspecified documented in this encounter Care Teams Video System Repairer Relationship Specialty Start Date End Date Bin Bowman MD [address] [place] [address] PCP - General General Internal Medicine 04/21/1707/11 documented as of this encounter
--- OUTSIDE RECORDS SUMMARY | 2024-07-21 11:32 | XMS_ITS | Encounter Summary ---
Author Organization [facility] [place] [address] Care Team Providers Care Energy Scheduler Name Role Phone Bin Bowman MD Primary Care Provider [phone] Encounter Details Date Type Department Care Team (Late st Contact Info) Description 06/01/2020 Orders Only Cardiology at [address] [phone] Fadi Escobar MD [facility] [place] [address] Heart palpitations Social History Tobacco Use Types [...] 10:[address] [place] [place] [phone] Rachel Carrasco MD [facility] [place] [address] 09/21/2024 11:00 AM EST Office Visit Urology at [facility] [place] [address] Rachel Carrasco MD [facility] [place] [address] Pending Results Name Type Priority Associated Diagnoses Date /Time Holter Monitor 48hr Cardiac Services Routine Heart palpitations 06/05/2020 10:44 AM EDT Scheduled Orders Name Type Priority Associated Diagnoses Orde r Schedule Holter Monitor 48hr Cardiac Services Routine Heart palpitations Expected: 06/01/2020 (Approximate), Expires: 06/01/2021 documented as of this encounter Visit Diagnoses Diagnosis Heart palpitations Palpitations documented in this encounter Care Teams Energy Scheduler Relationship Specialty Start Date End Date Bin Bowman MD [address] [place] [address] PCP - General General Internal Medicine 04/21/1707/11 documented as of this encounter
--- OUTSIDE RECORDS SUMMARY | 2024-07-21 11:32 | XMS_ITS | Encounter Summary ---
Author Organization [facility] [place] [address] Care Team Providers Care Rubber Trimmer Name Role Phone Bin Bowman MD Primary Care Provider [phone] Reason for Visit * Reason Comments Follow-up Encounter Details Date Type Department Care Team (Late st Contact Info) Description 08/19/2018 11:40 AM EDT Office [place] [address] Colt Hewitt MD [facility] [place] [address] Postoperative visit Social History Tobacco Use Types [...] 10:[address] [place] [place] [address] Rachel Carrasco MD [facility] [place] [address] 09/21/2024 11:00 AM EST Office [place] [address] Rachel Carrasco MD [facility] [place] [address] documented as of this encounter Visit Diagnoses Diagnosis Postoperative visit documented in this encounter Care Teams Rubber Trimmer Relationship Specialty Start Date End Date Bin Bowman MD [address] [place] [address] PCP - General General Internal Medicine 04/21/1707/11 documented as of this encounter
--- OUTSIDE RECORDS SUMMARY | 2024-07-21 11:32 | XMS_ITS | Encounter Summary ---
Author Organization [facility] [place] [address] Care Team Providers Care Product Development Actuary Name Role Phone Bin Bowman MD Primary Care Provider Encounter Details Date Type Department Care Team (Late st Contact Info) Description 06/27/2018 External Results [address] [place] [phone] Social History Tobacco Use Types Packs/Day Years [...] 10:[address] [place] [phone] Rachel Carrasco MD [facility] [place] [address] 09/21/2024 11:00 AM EST Office [place] [phone] Rachel Carrasco MD [facility] [place] [address] documented as of this encounter Procedures Procedure Name Priority Date/Time Associated Diagnosis Comments ECG SCAN Routine 06/27/2018 documented in this encounter Results * Scan Doc: ECG (06/27/2018) Historical Provider MD [facility] MGR SCAN EX T ORDR/RSLT documented in this encounter Visit Diagnoses Not on filedocumented in this encounter Care Teams Product Development Actuary Relationship Specialty Start Date End Date Bin Bowman MD [address] [place] [address] PCP - General General Internal Medicine 04/21/1707/11 documented as of this encounter
--- OUTSIDE RECORDS SUMMARY | 2024-07-21 11:32 | XMS_ITS | Encounter Summary ---
Author Organization [facility] [place] [address] Care Team Providers Care Cad Draftsman Name Role Phone Bin Bowman MD Primary Care Provider Reason for Visit * Consultation (Routine) - Closed Specialty Diagnoses / Procedures Referred By Zeyad mishra Referred To Contact General Surgery Diagnoses Upper abdominal pain Breonna Ambrocio, SYSTEM ANALYST [address] [place] [address] Colt Hewitt MD [facility] [place] [address] Referral ID Status Reason Start Date Expiration Date V isits Requested Visits Authorized [id number] Closed Consult, Test & Treat 02/20/2018 02/20/2019 1 1 Encounter Details Date Type Department Care Team (Late st Contact Info) Description 03/18/2018 8:00 AM EDT Office Visit General [place] [phone] Colt Hewitt MD [facility] [place] [address] Biliary colic Social History Tobacco Use Types [...] had a past history significant for a [place] with cardiac stents and is currently on [...] has lost significant weight during this timeframe [id number] pounds. However he still remains morbidly obese with a BMI of 51. I spent 40 minutes with patient today along with his significant other entire time in [id number] conversation regarding pathophysiology of gallstones as well [...] inflammation. His is going to contact his claims manager and review timing of surgery to see [...] AM EST Appointment [place] [address] Rachel Carrasco MD [facility] [place] [address] 09/21/2024 11:00 AM EST Office Visit [place] [phone] Rachel Carrasco MD [facility] [place] [address] documented as of this encounter Procedures Procedure Name Priority Date/Time Associated Diagnosis Comments AMB REFERRAL TO GENERAL SURGERY Routine 03/18/2018 9:00 AM EDT Upper abdominal pain documented in this encounter Visit Diagnoses Diagnosis Biliary colic Calculus of gallbladder without mention of cholecystitis or obstruction documented in this encounter Care Teams Cad Draftsman Relationship Specialty Start Date End Date Bin Bowman MD [address] [address] PCP - General General Internal Medicine 04/21/1707/11 documented as of this encounter
--- OUTSIDE RECORDS SUMMARY | 2024-07-21 11:32 | XMS_ITS | Encounter Summary ---
Author Organization [facility] [place] [address] Care Team Providers Care Wheat Grower Name Role Phone Bin Bowman MD Primary Care Provider Encounter Details Date Type Department Care Team (Late st Contact Info) Description 07/04/2020 [facility] [place] [address] Makayla Mcdermott, RN COVID-19 Social [...] [place] [address] Rachel Carrasco MD [facility] [place] [address] 09/21/2024 11:00 AM EST [place] [address] Rachel Carrasco MD [facility] [place] [address] documented as of this encounter Visit Diagnoses Diagnosis COVID-19 documented in this encounter Care Teams Wheat Grower Relationship Specialty Start Date End Date Bin Bowman MD [address] [place] [address] PCP - General General Internal Medicine 04/21/1707/11 documented as of this encounter
--- OUTSIDE RECORDS SUMMARY | 2024-07-21 11:32 | XMS_ITS | Encounter Summary ---
[place] [address] Care Team Providers Care Sports Photographer Name Role Phone Bin Bowman MD Primary Care Provider Encounter Details Date Type Department Care Team (Latest Contact Info) Description 07/05/2020 9:47 PM EDT - 07/05/2020 11:59 PM EDT Hospital [place] [phone] COVID-19 Discharge Disposition: Home Social History Tobacco [...] Sustained Release 24 hrIndications:Coronary artery disease involving habematolel coronary artery of habematolel heart without angina pectoris,Essential hypertension,Heart palpitations Take 1 tablet by mouth 2 times daily. 90 tablet 1 07/11/2020 07/11/2020 apixaban (Eliquis) 2.5 mg Tablet Take 5 mg by mouth 2 times daily. 12/19/2020 metoprolol succinate XL (Toprol-XL) 100 mg Tablet Sustained Release 24 hrIndications:Coronary artery disease involving habematolel coronary artery of habematolel heart without angina pectoris,Essential hypertension,Heart palpitations Take [...] 10:[address] [place] [place] [phone] Rachel Carrasco MD [facility] [place] [address] 09/21/2024 11:00 AM EST [place] [phone] Rachel Carrasco MD [facility] [place] [address] documented as of this encounter Procedures Procedure Name Priority Date/Time Associated Diagnosis Comments COVID-19 PCR Routine 07/05/2020 1:02 PM EDT documented in this encounter Results * COVID-19 PCR (07/05/2020 1:02 PM EDT) SARS-CoV-2 RNA Not Detected Not Detected [facility] Comment: This result should [...] the instructions for use provided by the [email or web address] and additional guidance provided by CDC and FDA. Testing is performed in the Clinical Genomics and Advanced Technology Laboratory within the Department of Pathology and Laboratory Medicine at [facility], certified under the Clinical Laboratory Improvement Amendments [...] fact sheets at the following FDA website: https://www.fda.gov/medical-devices/jiwzpxnhl-ytfajvhwcy-dkurqip-devices/emergen -us e-authorizations#iumbs58syt SARS-CoV-2 RNA Source FREIGHT TALLIER Swab [facility] Nasopharyngeal swab (specimen) Other / Unknown 07/05/2020 1:02 PM EDT 07/08/2020 12:15 AM EDT Narrative Resulting Agency Comment Spec In Lab Fadi Escobar MD MOLECULAR ORDERABLES [facility] [place] [place] [address] documented in this encounter Visit Diagnoses Diagnosis COVID-19 documented in this encounter Care Teams Sports Photographer Relationship Specialty Start Date End Date Bin Bowman MD [address] [address] PCP - General General Internal Medicine 04/21/1707/11 documented as of this encounter
--- OUTSIDE RECORDS SUMMARY | 2024-07-21 11:32 | XMS_ITS | Encounter Summary ---
Author Organization [facility] Address [facility] [place] [address] Care Team Providers Care Sales Broker Name Role Phone Bin Bowman MD Primary Care Provider Encounter Details Date Type Department Care Team (Late st Contact Info) Description 06/27/2018 Telephone Cardiology at [address] [phone] Joss De Anda MD [facility] [place] [address] Social History Tobacco Use Types Packs/Day Years [...] time: 1230h Referring Provider: Bubba Patient Location: [facility] Presenting Symptoms per OSH: Palpitations, fluttering x [...] 10:[address] [place] [place] [address] Rachel Carrasco MD [facility] [place] [address] 09/21/2024 11:00 AM EST [place] [address] Rachel Carrasco MD [facility] [place] [address] documented as of this encounter Visit Diagnoses Not on filedocumented in this encounter Care Teams Sales Broker Relationship Specialty Start Date End Date Bin Bowman MD [address] [place] [address] PCP - General General Internal Medicine 04/21/1707/11 documented as of this encounter
--- OUTSIDE RECORDS SUMMARY | 2024-07-21 11:32 | XMS_ITS | Encounter Summary ---
Author Organization [facility] [place] [address] Care Team Providers Care End Polisher Name Role Phone Bin Bowman MD Primary Care Provider [phone] Encounter Details Date Type Department Care Team (Late st Contact Info) Description 03/06/2018 Orders [place] [phone] Breonna Ambrocio, ENVELOPE MAKER [address] [place] [address] Social History Tobacco Use Types Packs/Day Years [...] 10:[address] [place] [phone] Rachel Carrasco MD [facility] [place] [address] 09/21/2024 11:00 AM EST Office [place] [address] Rachel Carrasco MD [facility] [place] [address] documented as of this encounter Visit Diagnoses Not on filedocumented in this encounter Care Teams End Polisher Relationship Specialty Start Date End Date Bin Bowman MD [address] [address] PCP - General General Internal Medicine 04/21/1707/11 documented as of this encounter
--- OUTSIDE RECORDS SUMMARY | 2024-07-21 11:32 | XMS_ITS | Encounter Summary ---
Author Organization Formerly [facility] [place] [address] Care Team Providers Care Hammer Smith Name Role Phone Bin Bowman MD Primary Care Provider Reason for Visit * Reason Comments Medication Refill Encounter Details Date Type Department Care Team (Late st Contact Info) Description 07/03/2018 [place] [phone] Hawk Coker DO [facility] HEMATOLOGY/[place] [address] Social History Tobacco Use Types Packs/Day Years [...] 10:[address] [place] [place] [phone] Rachel Carrasco MD [facility] [place] [address] 09/21/2024 11:00 AM EST [place] [address] Rachel Carrasco MD [facility] [place] [address] documented as of this encounter Visit Diagnoses Not on filedocumented in this encounter Care Teams Hammer Smith Relationship Specialty Start Date End Date Bin Bowman MD [address] [place] [address] PCP - General General Internal Medicine 04/21/1707/11 documented as of this encounter
--- OUTSIDE RECORDS SUMMARY | 2024-07-21 11:32 | XMS_ITS | Encounter Summary ---
[place] [address] Care Team Providers Care Field Return Repairer Name Role Phone Bin Bowman MD Primary Care Provider Encounter Details Date Type Department Care Team (Late Contact Info) Description 07/04/2020 [place] [address] Jil Reis Social History Tobacco Use Types [...] test. Would like an order sent to [facility] and she willcall to get this scheduled. Gave her number to call. documented in this encounter Plan of Treatment Upcoming Encounters Date Type Department Care Team (Late st Contact Info) Description 09/21/2024 10:[address] [place] [place] [address] Rachel Carrasco MD [facility] [place] [address] 09/21/2024 11:00 AM [place] [address] Rachel Carrasco MD [facility] [place] [address] documented as of this encounter Visit Diagnoses Not on filedocumented in this encounter Care Teams Field Return Repairer Relationship Specialty Start Date End Date Bin Bowman MD [address] [place] [address] PCP - General General Internal Medicine 04/21/1707/11 documented as of this encounter
--- OUTSIDE RECORDS SUMMARY | 2024-07-21 11:32 | XMS_ITS | Encounter Summary ---
Author Organization [facility] [place] [address] Care Team Providers Care Automotive Machinist Apprentice Name Role Phone Bin Bowman MD Primary Care Provider [phone] Encounter Details Date Type Department Care Team (Late st Contact Info) Description 01/23/2018 External [place] [address] Franci Brooks, RN Social History [...] 10:[address] [place] [place] [address] Rachel Carrasco MD [facility] [place] [address] 09/21/2024 11:00 AM EST [place] [address] Rachel Carrasco MD [facility] [place] [address] documented as of this encounter Procedures Procedure [...] Gamma Glutamyl Transferase 28 01/23/2018 Historical Provider MD [facility] documented in this encounter Visit Diagnoses Not on filedocumented in this encounter Care Teams Automotive Machinist Apprentice Relationship Specialty Start Date End Date Bin Bowman MD [address] [place] [address] PCP - General General Internal Medicine 04/21/1707/11 documented as of this encounter
--- OUTSIDE RECORDS SUMMARY | 2024-07-21 11:32 | XMS_ITS | Encounter Summary ---
Author Organization [facility] [place] [address] Care Team Providers Care Powderman Name Role Phone Bin Bowman MD Primary Care Provider Reason for Referral * Consultation (Routine) - Closed Specialty Diagnoses / Procedures Referred By Zeyad mishra Referred To Contact General Surgery Diagnoses Upper abdominal pain rBeonna Ambrocio MOLD FINISHER [address] [address] Colt Hewitt MD [facility] [place] [address] Referral ID Status Reason Start Date Expiration Date V isits Requested Visits Authorized [id number] Closed Consult, Test & Treat 02/20/2018 02/20/2019 1 1 Encounter Details Date Type Department Care Team (Late st Contact Info) Description 02/20/2018 Orders [place] [address] Breonna Ambrocio APRN [address] [place] [address] Upper abdominal pain Social History Tobacco Use [...] 10:[address] [place] [address] Rachel Carrasco MD [facility] [place] [address] 09/21/2024 11:00 AM [place] [address] Rachel Carrasco MD [facility] [place] [address] documented as of this encounter Procedures Procedure Name Priority Date/Time Associated Diagnosis Comments AMB REFERRAL TO GENERAL SURGERY Routine 03/18/2018 9:00 AM EDT Upper abdominal pain documented in this encounter Results * Referral to General Surgery (03/18/2018 9:00 AM EDT) Breonna Ambrocio APRN OUTPATIENT REFER RAL ORDERABLES documented in this encounter Visit Diagnoses Diagnosis Upper abdominal pain Abdominal pain, other specified site documented in this encounter Care Teams Powderman Relationship Specialty Start Date End Date Bin Bowman MD [address] [place] [address] PCP - General General Internal Medicine 04/21/1707/11 documented as of this encounter
--- OUTSIDE RECORDS SUMMARY | 2024-07-21 11:32 | XMS_ITS | Encounter Summary ---
Author Organization [facility] [place] [facility] [place] [address] Care Team Providers Care Prepper Name Role Phone Bin Bowman MD Primary Care Provider [phone] Reason for Visit * Reason Comments Medication Refill Encounter Details Date Type Department Care Team (Late st Contact Info) Description 08/03/2018 Ref[place] [address] Breonna Ambrocio, POLYTECHNIC TEACHER [address] [place] [address] Gastroesophageal reflux disease, esophagitis presence not specified [...] 10:[address] [place] [place] [address] [facility] [place] [address] 09/21/2024 11:00 AM [place] [address] [facility] [place] [address] documented as of this encounter Visit Diagnoses Diagnosis Gastroesophageal reflux disease, esophagitis presence not specified documented in this encounter Care Teams Prepper Relationship Specialty Start Date End Date Bin Bowman MD [address] [place] [address] PCP - General General Internal Medicine 04/21/1707/11 documented as of this encounter
--- OUTSIDE RECORDS SUMMARY | 2024-07-21 11:32 | XMS_ITS | Encounter Summary ---
Author Organization [facility] [place] [address] Care Team Providers Care Candlemaker Name Role Phone Bin Bowman MD Primary Care Provider Reason for Visit * Auth/Cert Specialty Diagnoses / Procedures Referred By Zeyad mishra Referred To Contact Diagnoses BILIARY COLIC Procedures PRO LAP, CHOLECYSTECTOMY/GRAPH PRO UNLISTED LAPAROSCOPIC PX LVR LAPAROSCOPIC CHOLECYSTECTOMY WITH CHOLANGIOGRAM (WRVU 11.47) LAPAROSCOPIC LIVER BIOPSY (WRVU 16.52) Referral ID Status Reason Start Date Expiration Date Visits Re quested Visits Authorized [id number] 1 1 Encounter Details Date Type Department Care Team (Late st Contact Info) Description 07/21/2018 12:47 PM EDT - 07/21/2018 3:56 PM EDT Surgery [place] [address] Colt Hewitt MD [facility] [place] [address] LAPAROSCOPIC CHOLECYSTECTOMY WITH CHOLANGIOGRAM (WRVU 11.47) Social [...] have any questions or concerns, please call [phone] before 5pm Friday through Friday; or [phone] after 5pm and on weekends. Diet: regular [...] 11:40 AM Colt Hewitt MD [facility] documented in this encounter Medications at [...] by Yusuf Tucker MD at [facility] ENDOSCOPY ??? PRO UPPER GI ENDOSCOPY, DIAGNOSTIC N/A 12/29/2017 EGD, UPPER GI ENDOSCOPY performed by Yusuf Tucker MD at [facility] ENDOSCOPY SH: Non smoker Objective: Most [...] Hewitt MD - 07/21/2018 4:12 PM EDT [facility] [place] Patient Name: Rolo Aguilar : [id number] MR#: [id number] Case Date: 07/21/2018 Surgeon: Surgeon(s) and Role: * Colt Hewitt MD - Primary * Guerline Traore MD - Resident-Mobile Therapist * Jesse Pollack MD - Fellow Preoperative [...] 10:[address] [place] [place] [address] Rachel Carrasco MD [facility] [place] [address] 09/21/2024 11:00 AM EST [place] [address] Rachel Carrasco MD [facility] [place] [address] documented as of this encounter Procedures Procedure [...] PM EDT 07/21/2018 2:20 PM EDT Narrative [facility] - 07/21/2018 2:20 PM EDT Specimen requisition ordered. ??Separate Pathology report to follow Resulting Agency Comment Spec In Lab Colt Hewitt MD PATHOLOGY/CYTOLOGY ORDERABLES [facility] [place] [address] * Surgical Pathology Report (07/21/2018 1:39 PM EDT) Final Diagnosis [id number] ? Location: [facility]; [facility]; The signing pathologist has (i) examined the [...] Durbin MD Verified: ??07/24/2018 ?Pathologist Performed at: ??-[facility] [place], [place], [place] CLINICAL INFORMATION Specimen Submitted: A [...] black. Sections/Processin g: Cystic duct margin and guest service representative gallbladder body sections submitted. (R1) ??rm 07/24/2018 4:34 PM EDT [facility] GALLBLADDER STRUCTURE / Unknown 07/21/2018 1:39 PM EDT 07/21/2018 1:39 PM EDT GALLBLADDER STRUCTURE / Unknown 07/21/2018 1:39 PM EDT 07/21/2018 1:39 PM EDT Colt Hewitt MD PATHOLOGY/CYTOLOGY ORDERABLES [facility] [place] [address] * Specimen to Pathology (07/21/2018 1:39 PM EDT) AP Specimen 07/21/2018 1:39 PM EDT 07/21/2018 2:20 PM EDT Narrative [facility] - 07/21/2018 2:20 PM EDT Specimen requisition ordered. ??Separate Pathology report to follow Resulting Agency Comment Spec In Lab Colt Hewitt MD PATHOLOGY/CYTOLOGY ORDERABLES Performing Organization Address City/[facility]/ZIP Co de Phone Number [facility] [place] [address] * XR Fluoro No Rad <1Hr - OR Use (07/21/2018 1:30 PM EDT) Narrative RAD - 07/21/2018 1:42 PM EDT This order does not need a radiologist interpretation. ?? Colt Hewitt MD IMG FLUORO ORDERABL ES Performing Organization Address [facility] Co de Phone Number [place], [place] documented in this encounter Visit Diagnoses [...] Routine documented in this encounter Care Teams Candlemaker Relationship Specialty Start Date End Date Bin Bowman MD [address] [place] [address] PCP - General General Internal Medicine 04/21/1707/11 documented as of this encounter
--- OUTSIDE RECORDS SUMMARY | 2024-07-21 11:32 | XMS_ITS | Encounter Summary ---
Author Organization [facility] [place] [address] Care Team Providers Care Cereal Supervisor Name Role Phone Bin Bowman MD Primary Care Provider [phone] Reason for Visit * Reason Comments GI Problem Encounter Details Date Type Department Care Team (Latest Contact Info) Description 01/20/2018 12:00 PM EDT Office Visit [place] [address] Breonna Ambrocio, JOURNEYMAN MILLWRIGHT [address] [place] [address] Gastroesophageal reflux disease without esophagitis; Dyspepsia; Dysphagia, [...] Ambrocio APRN - 01/20/2018 12:00 PM EDT Cart Driver: Breonna Ambrocio APRN PCP: Bin Bowman MD [...] this 31 minute visit were spent in [id number] discussion and counseling the patientas detailed per [...] Was using carafate for a little while. [place] this helped. Had an EGD in September 2016. Was told everything is normal, although patient states he feels he would like another EGD done by a gas substation operator and not a general surgeon. Denies dysphagia, odynophagia, globus. Denies regurgitation, nausea, vomiting. Decreased appetite. Early satiety. Post-prandial bloating frequently. Denies chronic NSAID use. No anemia. Abdominal pain related to heartburn and bloating. Denies diarrhea and constipation. No cramping or urgency. No blood or mucus in stool. No anal or rectal pain. Will get chills in the paid search marketing analyst or late at night. 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 [...] 1:27 PM Section of Gastroenterology & Hepatology [facility] ?? documented in this encounter Plan of Treatment Upcoming Encounters Date Type Department Care Team (Late st Contact Info) Description 09/21/2024 10:[address] [place] [address] Rachel Carrasco MD [facility] [place] [address] 09/21/2024 11:00 AM EST Office [place] [address] Rachel Carrasco MD [facility] [place] [address] documented as of this encounter Visit Diagnoses Diagnosis Gastroesophageal reflux disease without esophagitis Esophageal reflux Dyspepsia Dyspepsia and other specified disorders of function of stomach Dysphagia, unspecified type Bloating Flatulence, eructation, and gas pain documented in this encounter Care Teams Cereal Supervisor Relationship Specialty Start Date End Date Bin Bowman MD [address] [address] PCP - General General Internal Medicine 04/21/1707/11 documented as of this encounter
--- OUTSIDE RECORDS SUMMARY | 2024-07-21 11:32 | XMS_ITS | Encounter Summary ---
Author Organization Formerly [facility] [place] [address] Care Team Providers Care Weapons Engineer Name Role Phone Bin Bowman MD Primary Care Provider Encounter Details Date Type Department Care Team (Late st Contact Info) Description 05/07/2020 External Results [place] [address] Social History Tobacco Use Types Packs/Day Years [...] 10:[address] [place] [place] [address] Rachel Carrasco MD [facility] [place] [address] 09/21/2024 11:00 AM EST [place] [address] Rachel Carrasco MD [facility] [place] [place] [address] documented as of this encounter Procedures Procedure Name Priority Date/Time Associated Diagnosis Comments ECG SCAN Routine 05/07/2020 documented in this encounter Results * Scan Doc: ECG (05/07/2020) Historical Provider MD [facility] MGR SCAN EX T ORDR/RSLT documented in this encounter Visit Diagnoses Not on filedocumented in this encounter Care Teams Weapons Engineer Relationship Specialty Start Date End Date Bin Bowman MD [address] [place] [address] PCP - General General Internal Medicine 04/21/1707/11 documented as of this encounter
--- OUTSIDE RECORDS SUMMARY | 2024-07-21 11:32 | XMS_ITS | Encounter Summary ---
Author Organization [facility] Address [facility] [place] [address] Care Team Providers Care Jewelry Casting Model Maker Apprentice Name Role Phone Bin Bowman MD Primary Care Provider [phone] Encounter Details Date Type Department Care Team (Late st Contact Info) Description 07/29/2019 9:00 AM EDT Office Visit Cardiology at [address] [address] Jeremie Patton MD [facility] [place] [address] Coronary disease Social History Tobacco Use Types [...] original note were not included. CARDIOVASCULAR MEDICINE [facility] [address] Subjective Identification Rolo Aguilar is a 48 y.o. patient of Bin Bowman MD with the following cardiovascular issues: 1. Coronary disease--- STEMI in Jul 2017 with PCI of OM1. Other vessels ok. EF 60%. Previously followed by Dr. Montes at [facility]. Frequent ER visits initially post [place]. Last nuc stress test at [facility] in March 2019 showing scar 2. Palpitations--- investigations showing PVCs. 3. Hypertension 4. Hyperlipidemia Comorbidities include hx of cholelithiasis, GERD, elevated BMI, depression, bipolar illness. Lives in [place], [place]. 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 Present Illness Last contact with [facility] cardiology was phone call in Jun 2018 with slight troponin elevation. He is here to establish care. He recently saw Dr. Patel at [facility] and they did not click. He formerly has been followed by Dr. Montes who has retired from . We reviewed his past medical history which is documented above. Most recently, he was in the emergency room at in June with palpitations. They seem to [...] He hada nuclear stress test done at [facility] in which apparently showed no concerning [...] Abdomen: Nondistended. Soft. Nontender. Extremities: No edema NUTRITION CLUB AMBASSADOR: Normal mentation. Psych: Appropriate affect. Labs Lab [...] Will request nuc stress test result from [facility]. 2. Palpitations: Improved with increased dose of metoprolol. Follow up 1 year. Jeremie Patton MD [facility] Lexiscan report received from [facility] from March. Showed large fixed inferolateral defect. No ischemia. EF 50%. cc: Bin Bowman MD [address] / [place] [address] documented in this encounter Plan of Treatment Upcoming Encounters Date Type Department Care Team (Late st Contact Info) Description 09/21/2024 10:[address] [place] [place] [address] Rachel Carrasco MD [facility] [place] [address] 09/21/2024 11:00 AM EST [place] [address] Rachel Carrasco MD [facility] [place] [address] documented as of this encounter Visit Diagnoses Diagnosis Coronary disease documented in this encounter Care Teams Jewelry Casting Model Maker Apprentice Relationship Specialty Start Date End Date Bin Bowman MD [address] [place] [address] PCP - General General Internal Medicine 04/21/1707/11 documented as of this encounter
--- OUTSIDE RECORDS SUMMARY | 2024-07-21 11:32 | XMS_ITS | Encounter Summary ---
[place] [address] Care Team Providers Care Haulage Engine Operator Name Role Phone Bin Bowman MD Primary Care Provider [phone] Reason for Visit * Reason Onset Date Comments Questions 06/13/2020 Encounter Details Date Type Department Care Team (Late st Contact Info) Description 06/13/2020 Telephone Cardiology at [address] [phone] Fady Lord RN Questions Social History Tobacco [...] EDT Received a call from Esmer from [facility] Cardiology re: plan for this patient. He [...] up [address] b[address] in the ED. Dr. uClver increased metoprolol to 125 mg daily. Today [...] EST [place] [address] Rachel Carrasco MD [facility] [place] [address] 09/21/2024 11:00 AM [place] [address] Rachel Carrasco MD [facility] [place] [address] documented as of this encounter Visit Diagnoses Not on filedocumented in this encounter Care Teams Haulage Engine Operator Relationship Specialty Start Date End Date Bin Bowman MD [address] [place] [address] PCP - General General Internal Medicine 04/21/1707/11 documented as of this encounter
--- OUTSIDE RECORDS SUMMARY | 2024-07-21 11:33 | XMS_ITS | Encounter Summary ---
Author Organization [facility] [place] [address] Care Team Providers Care Fruit Farmworker Name Role Phone Bin Bowman MD Primary Care Provider [phone] Encounter Details Date Type Department Care Team (Latest Contact Info) Description 12/29/2017 8:49 AM EST - 12/29/2017 12:32 PM EST Hospital [place] [address] Yusuf Tucker MD [facility] [place] [address] Discharge Disposition: Home Social History Tobacco Use [...] Other Instructions Be sure to carry your hands and dial inspector within 3 feet at all times . [...] better as expected. Friday-Friday Same Day Endo [phone] 7a-8p Otherwise contact [phone] and ask to speak to the form setter helper software controls engineer Denise Wolf RN [phone] if any problems with hands and dial inspector Follow-up care is a garcia part of [...] the day after the test, use an cqjp-jlq-kugqomm spray to numb your throat. Follow-up care is a garcia part of your treatment and safety. Be sure to make and go to all appointments, and call your doctor if you are having problems. It's also a good idea to know your test resultsand keep a list of the medicines you take. When should you call for help? Call [phone] anytime you think you may need emergency [...] Where can you learn more? Visit our [employer] information library at [email or web address]. You can also view health information on [employer], your personal patient account. Log in or sign uptoday. Enter J454 in the search box to learn more about Upper GI Endoscopy: What to Expect at Home. Current as of: March 21, 2017 Content Version: 11.4 ?? [id number] [employer]. Care instructions adapted under license by [facility]. If you have questions about a medical condition or this instruction, always ask your healthcare professional. [employer] disclaims any warranty or liability for your [...] by: Yusuf Tucker MD Department of Gastroenterology [facility] 12/29/2017 documented in this encounter Plan of Treatment Upcoming Encounters Date Type Department Care Team (Late st Contact Info) Description 09/21/2024 10:[address] [place] [address] Rachel Carrasco MD [facility] [place] [address] 09/21/2024 11:00 AM EST Office Visit Urology at [facility] [address] Rachel Carrasco MD [facility] [place] [address] documented as of this encounter Procedures Procedure [...] Report (12/29/2017 11:27 AM EST) Final Diagnosis [id number] ? Location: 4; [facility]; A The signing pathologist has (i) [...] Durbin MD Verified: ??01/01/2018 ?Pathologist Performed at: ??-[facility]. [facility]ology, [place], [place] CLINICAL INFORMATION Specimen Submitted: A - [...] sing: (T1) ??ejr 01/01/2018 2:[address] [facility] GI Biopsy 12/29/2017 11:2 7 AM EST 12/29/2017 11:27 AM EST GI Biopsy 12/29/2017 11:2 7 AM EST 12/29/2017 11:27 AM EST GI Biopsy 12/29/2017 11:2 7 AM EST 12/29/2017 11:27 AM EST GI Biopsy 12/29/2017 11:2 7 AM EST 12/29/2017 11:27 AM EST Yusuf Tucker MD PATHOLOGY/CYTOLOGY O RDERABLES Performing Organization Address City/[facility]/[place] [address] * Specimen to Pathology (12/29/2017 11:27 AM EST) AP Specimen 12/29/2017 11:2 7 AM EST 12/29/2017 1:[address] [facility] - 12/29/2017 1:17 PM EST Specimen requisition ordered. ??Separate Pathology report to follow Resulting Agency Comment Spec In Lab Yusuf Tucker MD PATHOLOGY/CYTOLOGY O RDERAPREET Performing Organization Address [facility]/[place] [address] * Specimen to Pathology (12/29/2017 11:27 AM EST) AP Specimen 12/29/2017 11:2 7 AM EST 12/29/2017 1:[address] [facility] - 12/29/2017 1:17 PM EST Specimen requisition ordered. ??Separate Pathology report to follow Resulting Agency Comment Spec In Lab Yusuf Tucker MD PATHOLOGY/CYTOLOGY O RDERABLES Performing Organization Address City/[facility]/[place] [address] * Specimen to Pathology (12/29/2017 11:27 AM EST) AP Specimen 12/29/2017 11:2 7 AM EST 12/29/2017 1:[address] [facility] - 12/29/2017 1:17 PM EST Specimen requisition ordered. ??Separate Pathology report to follow Resulting Agency Comment Spec In Lab Yusuf Tucker MD PATHOLOGY/CYTOLOGY O RDERABLES [place] [address] * Specimen to Pathology (12/29/2017 11:27 AM EST) AP Specimen 12/29/2017 11:2 7 AM EST 12/29/2017 1:[address] [facility] - 12/29/2017 1:17 PM EST Specimen requisition ordered. ??Separate Pathology report to follow Resulting Agency Comment Spec In Lab Yusuf Tucker MD PATHOLOGY/CYTOLOGY O RDERAPREET [facility] [place] [address] * UPPER GI ENDOSCOPY (12/29/2017 11:00 AM EST) UPPER GI ENDOSCOPY [facility] Endoscopy Procedure Date: 12/29/2017 11:00 AM ? Patient Name: Rolo Aguilar ? Date of : 1970 ? Age: 47 ? Order #: [id number] ? Instrument Name: [id number] ? Procedure: ? Upper GI endoscopy Indications: ? Heartburn, bloating Providers: ? Yusuf Tucker MD, Funmi Andre ? Miko Gibbons, Vp Of Marketing Referring MD: ?Bin Bowman MD Medicines: ? [...] CRNA) documented in this encounter Care Teams Fruit Farmworker Relationship Specialty Start Date End Date Bin Bowman MD [address] [place] [phone] PCP - General General Internal Medicine 04/21/1707/11 documented as of this encounter
--- OUTSIDE RECORDS SUMMARY | 2024-07-21 11:33 | XMS_ITS | Encounter Summary ---
Author Organization [facility] [place] [address] Care Team Providers Care V/Stol Landing Signal Officer Name Role Phone Bin Bowman MD Primary Care Provider Encounter Details Date Type Department Care Team (Late st Contact Info) Description 12/04/2017 Orders Only [place] [phone] Breonna Ambrocio, [employer] [address] [place] [address] Gastroesophageal reflux disease, esophagitis presence not specified; [...] 10:[address] [place] [phone] Rachel Carrasco MD [facility] [address] 09/21/2024 11:00 AM EST Office [place] [address] Rachel Carrasco MD [facility] [place] [address] documented as of this encounter Visit Diagnoses Diagnosis Gastroesophageal reflux disease, esophagitis presence not specified Dyspepsia Dyspepsia and other specified disorders of function of stomach documented in this encounter Care Teams V/Stol Landing Signal Officer Relationship Specialty Start Date End Date Bin Bowman MD [address] [place] [id number] PCP - General General Internal Medicine 04/21/1707/11 documented as of this encounter
--- OUTSIDE RECORDS SUMMARY | 2024-07-21 11:33 | XMS_ITS | Encounter Summary ---
Author Organization [facility] [place] [address] Care Team Providers Care Humanities Coordinator Name Role Phone Bin Bowman MD Primary Care Provider [phone] Encounter Details Date Type Department Care Team (Late st Contact Info) Description 12/29/2017 10:00 AM EST - 12/29/2017 10:30 AM EST [place] [address] Yusuf Tucker MD [facility] [place] [address] EGD, UPPER GI ENDOSCOPY (WRVU 2.09) Social [...] Other Instructions Be sure to carry your ripening room attendant within 3 feet at all times . [...] better as expected. Friday-Friday Same Day Endo [phone] 7a-8p Otherwise contact [phone] and ask to speak to the radiator specialist harpooner Denise Wolf RN [phone] if any problems with ripening room attendant Follow-up care is a garcia part of [...] the day after the test, use an bcqj-pot-bnpwmkj spray to numb your throat. Follow-up care is a garcia part of your treatment and safety. Be sure to make and go to all appointments, and call your doctor if you are having problems. It's also a good idea to know your test resultsand keep a list of the medicines you take. When should you call for help? Call [phone] anytime you think you may need emergency [...] Where can you learn more? Visit our [employer] information library at [email or web address]. You can also view health information on [employer], your personal patient account. Log in or sign uptoday. Enter J454 in the search box to learn more about Upper GI Endoscopy: What to Expect at Home. Current as of: March 21, 2017 Content Version: 11.4 ?? [id number] [employer]. Care instructions adapted under license by [facility]. If you have questions about a medical condition or this instruction, always ask your healthcare professional. [employer] disclaims any warranty or liability for your [...] by: Yusuf Tucker MD Department of Gastroenterology [facility] 12/29/2017 documented in this encounter Plan of Treatment Upcoming Encounters Date Type Department Care Team (Late st Contact Info) Description 09/21/2024 10:[address] [place] [place] [address] Rachel Carrasco MD [facility] [place] [address] 09/21/2024 11:00 AM EST Office Visit Urology at [facility] [place] [address] Rachel Carrasco MD [facility] [place] [place] [address] documented as of this encounter Procedures Procedure [...] Report (12/29/2017 11:27 AM EST) Final Diagnosis [id number] ? Location: 4T; EA10; A The signing [...] Durbin MD Verified: ??01/01/2018 ?Pathologist Performed at: ??-[facility] Dept. of Pathology, [place], [place] CLINICAL INFORMATION Specimen Submitted: A - [...] sing: (T1) ??ejr 01/01/2018 2:42 PM EST [facility] GI Biopsy 12/29/2017 11:2 7 AM EST 12/29/2017 11:27 AM EST GI Biopsy 12/29/2017 11:2 7 AM EST 12/29/2017 11:27 AM EST GI Biopsy 12/29/2017 11:2 7 AM EST 12/29/2017 11:27 AM EST GI Biopsy 12/29/2017 11:2 7 AM EST 12/29/2017 11:27 AM EST Yusuf Tucker MD PATHOLOGY/[place] [address] * Specimen to Pathology (12/29/2017 11:27 AM EST) AP Specimen 12/29/2017 11:2 7 AM EST 12/29/2017 1:17 PM EST Narrative [facility] - 12/29/2017 1:17 PM EST Specimen requisition ordered. ??Separate Pathology report to follow Resulting Agency Comment Spec In Lab Yusuf Tucker MD PATHOLOGY/CYTOLOGY O [place] Performing Organization Address City/[facility]/[place] [address] * Specimen to Pathology (12/29/2017 11:27 AM EST) AP Specimen 12/29/2017 11:2 7 AM EST 12/29/2017 1:17 PM EST Narrative [facility] - 12/29/2017 1:17 PM EST Specimen requisition ordered. ??Separate Pathology report to follow Resulting Agency Comment Spec In Lab Yusuf Tucker MD PATHOLOGY/CYTOLOGY O [place] Performing Organization Address City/[facility]/ZIP Co de Phone Number [facility] [place] [address] * Specimen to Pathology (12/29/2017 11:27 AM EST) AP Specimen 12/29/2017 11:2 7 AM EST 12/29/2017 1:17 PM EST Narrative [facility] - 12/29/2017 1:17 PM EST Specimen requisition ordered. ??Separate Pathology report to follow Resulting Agency Comment Spec In Lab Yusuf Tucker MD PATHOLOGY/CYTOLOGY O [place] [facility] [place] [address] * Specimen to Pathology (12/29/2017 11:27 AM EST) AP Specimen 12/29/2017 11:2 7 AM EST 12/29/2017 1:17 PM EST Narrative [facility] - 12/29/2017 1:17 PM EST Specimen requisition ordered. ??Separate Pathology report to follow Resulting Agency Comment Spec In Lab Yusuf Tucker MD PATHOLOGY/[place] [address] * UPPER GI ENDOSCOPY (12/29/2017 11:00 AM EST) UPPER GI ENDOSCOPY [facility] Endoscopy Procedure Date: 12/29/2017 11:00 AM ? Patient Name: Rolo Aguilar ? Date of : 1970 ? Age: 47 ? Order #: [id number] ? Instrument Name: [id number] ? Procedure: ? Upper GI endoscopy Indications: ? Heartburn, bloating Providers: ? Yusuf Tucker MD, Funmi Andre ? Miko Gibbons, Director Digital Catalogue Referring MD: ?Bin Bowman MD Medicines: ? [...] CRNA) documented in this encounter Care Teams Humanities Coordinator Relationship Specialty Start Date End Date Bin Bowman MD [address] [place] [id number] PCP - General General Internal Medicine 04/21/1707/11 documented as of this encounter
--- OUTSIDE RECORDS SUMMARY | 2024-07-21 11:33 | XMS_ITS | Encounter Summary ---
[place] [address] Care Team Providers Care Forensic Dna Analyst Name Role Phone Severo Bowman MD Primary Care Provider Reason for Referral * Consultation (Routine) - Specialty Diagnoses / Procedures Referred By Zeyad mishra Referred To Contact Cardiac Rehabilitation Diagnoses ST elevation myocardial infarction (STEMI), unspecified artery Ky Amato MD [facility] [place] [address] Cardiac Rehab, [facility] [address] [place] [address] Referral ID Status Reason Start Date Expiration Date V isits Requested Visits Authorized [id number] Consult, Test & Treat 07/16/2017 01/12/2018 36 36 Reason for Visit * Auth/Cert Specialty Diagnoses / Procedures Referred By Zeyad mishra Referred To Contact Diagnoses STEMI (ST elevation myocardial infarction) STEMI STEMI Procedures CARDIAC CATHETERIZATION Referral ID Status Reason Start Date Expiration Date Visits Re quested Visits Authorized [id number] 1 1 Encounter Details Date Type Department Care Team (Latest Contact Info) Description 07/13/2017 12:24 PM EDT - 07/16/2017 11:51 AM EDT Hospital Encounter Intermediate [place] [id number] Ky Amato MD [facility] [place] [address] Neftali White MD [facility] [place] [address] ST elevation myocardial infarction (STEMI), unspecified artery [...] Rolo Aguilar Patient Age: 46 y.o. Language: Mozambican Race: White Ethnicity: Not nor Admit date: 07/13/2017 Discharge date and time: 07/16/2017 Attending Physician: Ky Amato MD Discharge Physician: Hawk Coker DO (Resident) ID: Mr. Aguilar is a 46yo w/ pMHx Of HTN, HLD, GERD, morbid obesity, depression, bipolar, who presents as transfer from [facility] for chest pain and inferior [...] medications as appropriate - Cardiac rehab in [facility] Discharge Diagnoses (Hospital Problems) and Secondary [...] depression, bipolar, who presents as transfer from [facility] for chest pain and inferior [...] called the ambulance, who transported him to [facility], where he was loaded plavix, started on heparin gtt, and tNK was already loaded with ASA at home). He also received 1L of NS for BP in the 90/50s. It took an 1 to 1.5 hr to get to [facility]. ?? In laboratory cureman, LM was normal, RCA was normal, LAD was normal, LCD 85% long segmental stenosis of ELEANOR.S/p EMMY in OM1. ?? Patient denies recent illnesses, diarrhea, constipation, coughs, sick contacts Hospital Course: Rolo Aguilar was admitted to the Medicine Service on 07/13/2017 in stable condition. The following issues were addressed during this admission and he was discharged on 07/16/2017 ACS On admission to [facility], the patient was taken emergently to the laboratory cureman. Prior to discharge he had aCXR showing mild pulmonary edema. This was from acute diastolic heart failure. His cath showed one vessel coronary artery disease of the LCX, he received EMMY to his proximal OM1 lesion. On transfer to the [facility], the patient was chest pain free [...] was initially held in the setting ofacute [place]. This was discussed at length with the [...] 38.8* PLATELET 128* 145 197 Recent Labs 07/16/1751507/15/177 07/14/17 0320 NA 139 137 139 K [...] ventricular segmental wall motion abnormalities present at [facility] inferolateral wall, as coded in the [...] appointments: During 8am-5pm Friday through Friday call [phone] to speak with a nurse in the cardiology clinic All other times call [phone] and ask to speak to the ocean export coordinator land acquisition specialist. Activity level: - No heavy lifting (more [...] 3:00 PM MOTILITY LAB [facility] 4T [facility] 09/19/2017 9:30 AM Breonna Ambrocio APRN [facility] Cardiology Follow-up: Dr. Montes -- August 01, 1:30PM PCP Follow-up: JONATAN Hay -- July 28, 11:00AM -- [phone] Your Inpatient Doctor(s) at [facility]: Ky Amato MD - Attending physician Hawk Coker DO - Resident physician Maryuri Sanchez MD - Casework Specialist physician Your Primary Care Provider: Severo Bowman MD [address] / [place] [address] For questions regarding issues relating to your hospitalization on the Hospital Medicine Service, please contact your inpatient physician through the [facility] Christmas Tree Grader [phone]. Issues after hours and on weekends will be handled by the Hospitalist staff on-call. General Instructions None Future Appointments and Orders Future Appointments Provider Department Dept Phone 09/10/2017 3:00 PM [facility] [place] [phone] 09/19/2017 9:30 AM Breonna Ambrocio APRN [facility] [place] [phone] Future Orders Complete By Expires Referral to Cardiac Rehab [[id number] Custom] As directed Process Instructions: If no progress note charted, please enter Clinical details in comments. Scheduling Instructions: Questions: My question or request is: STEMI. Cardiac rehab at [facility] Provider Contact Information: Severo Bowman MD [address] / [place] [address] Discharge References/Attachments: Discharge References/Attachments None documented in [...] appointments: During 8am-5pm Friday through Friday call [phone] to speak with a nurse in the cardiology clinic All other times call [phone] and ask to speak to the ocean export coordinator land acquisition specialist. Activity level: - No heavy lifting (more [...] 9:30 AM Breonna Ambrocio APRN [facility] Cardiology Follow-up: Dr. Montes -- August 01, 1:30PM PCP Follow-up: JONATAN Hay -- July 28, 11:00AM -- [phone] Your Inpatient Doctor(s) at [facility]: Ky Amato MD - Attending physician Hawk Coker DO - Resident physician Maryuri Sanchez MD - Casework Specialist physician Your Primary Care Provider: Severo Bowman MD [address] / [place] [address] For questions regarding issues relating to your hospitalization on the Hospital Medicine Service, please contact your inpatient physician through the [facility] Christmas Tree Grader [phone]. Issues after hours and on weekends will [...] by cardiac rehab. Twyla Chaudhary, PT Pager [phone] * Ky Amato MD - 07/15/2017 6:26 [...] an inferoposterior ST elevation myocardial infarction to [facility]. He was treated with thrombolytic [...] OM1 and hemodynamically stable. Received tNK at [facility] prior to transfer. Hemodynamically stable so far, [...] MD PGY1 Internal Medicine Cardiology S1 Pager [phone] Attending Addendum: The patient was seen and examined in conjunction with the resident on rounds. My history, physical exam findings, assessment, and plan are reflected in that note. Lab and relevant imaging data was reviewed and the plan was communicated with the patient and available family. Doing well and approaching d/c. Advance GDT for CAD meds. Ky Amato MD, [facility] Attending Seat Trimmer Pager [phone] * Veena Marx - 07/13/2017 7:15 PM [...] c/d/i, no tenderness to palpation. Abd: No [place]'s sign. Ext: LE warm with 2+ DP [...] PCP: Severo Bowman MD PCP phone #: [phone] ID/Chief Complaint: 46yo male History of Present Illness: Mr. Aguilar is a 46yo w/ pMHx Of HTN, HLD, GERD, morbid obesity, depression, bipolar, who presents as transfer from [facility] for chest pain and inferior [...] called the ambulance, who transported him to [facility], where he was loaded plavix, started on heparin gtt, and tNK was already loaded with ASA at home). He also received 1L of NS for BP in the 90/50s. It took an 1 to 1.5 hr to get to [facility]. In laboratory cureman, LM was normal, RCA was normal, LAD [...] use Living Situation: Lives with mother in [place], [place]. Sees Dr. Bowman ([facility]), Sindhu Diana ([facility]). In good relationship with . 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 Invalid input(s): [id number] Heme: No results for input(s): LDH, HAPTOGLOBIN, [...] OM1 and hemodynamically stable. Received tNK at [facility] prior to transfer. #Inferior STEMI s/p EMMY [...] MD PGY1 Internal Medicine Cardiology S1 Pager [phone] Attending Addendum: The patient was seen and [...] an inferoposterior ST elevation myocardial infarction to [facility]. He was treated with thrombolytic drugs and transferred for immediate catheterization. In the Retort Kiln Burner, radial access was difficult due to a [...] 3 day hospital course. Ky Amato MD, [facility] Attending Seat Trimmer Pager [phone] documented in this encounter Miscellaneous Notes * [...] of CP/SOB. Ambulating around unit w/o complications. anibal given tonight. Confirmed with Jah PANDEY. remained at bedside. NSR/SA on tele. Rare PVC's. HR 60-95. 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 He quit smoking 3 years ago. Recently, he made changes in his diet and began walking 3 miles every day. He has lost 40 lbs and is motivated to continueto lose weight and exercise. Reviewed home exercise program with him. He is very interested in participating in cardiac rehab. Participation to an outpatient cardiac rehabilitation program at [facility] was discussed. Patient agrees to [...] HARMEET w/rails, lives in basement [address] [place] [address] Social & Family Supports/Community Resources: Autumn Extended Emergency Contact Information Primary Emergency Contact: Autumn Aguilar Address: [address] [place] [address] [facility] Mobile Relation: Spouse Secondary Emergency Contact: Whitney Piedra Address: [address] [place] [address] [facility] Relation: Sibling Behavioral Health History: History depression, anxiety, and bipolar Substance Use/Abuse: Quit smoking 3 years ago, rare alcohol use, denies illicit drug use Other Pertinent/Service Specific Information: None Health/Prescription Coverage: Payor: [place] / Plan: [place] PRIMARY CARE PLUS / Product Type: *No Product type* / Secondary Insurance: None Prescription Coverage: see above Preferred Pharmacy: [id number] - [place], [place] - [address] [facility] [address] Other: None Primary Care Provider: Severo Bowman MD [phone] Patient/Caregiver Goals of Treatment: Safe dc plan [...] planning. NEGRITA Smith, MS, BSN, RN, Pager [phone] Office of Care Management * Plan of [...] Review Outcome: Ongoing (Interventions Implemented as Appropriate) 07/15/17140 Coping/Psychosocial Plan Of Care Reviewed With patient;spouse [...] Implemented as Appropriate) 07/14/17 2300 07/15/17 0141 Restraint Interventions Safety Promotion/Fall Prevention -- fall [...] OUTCOME EVALUATION NOTE: OUTCOME SUMMARY: Transferred from [facility], A&Ox4, denies pain or SOB. Right [...] (reference Cardiac Cath/Percutaneous Coronary Intervention (Adult) CPG). 07/14/17 175 Cardiac Cath/Percutaneous Coronary Intervention Problems Assessed (Cardiac Catheterization) all Problems Present (Cardiac Catheterization) none documented in this encounter Plan of Treatment Upcoming Encounters Date Type Department Care Team (Late st Contact Info) Description 09/21/2024 10:[address] [place] [place] [address] Rachel Carrasco MD [facility] [place] [address] 09/21/2024 11:00 AM EST Office Visit Urology at [facility] [place] [address] Rachel Carrasco MD [facility] [place] [address] Scheduled Referrals Name Type Priority Associated Diagnoses [...] 07/14/20 17 3:20 AM EDT CARDIAC ENZYMES ([facility]) Routine 07/14/2017 3:20 AM EDT CBC (WITH DIFF) Routine 07/14/2017 3:20 AM EDT TSH Routine 07/14/2017 3:20 AM EDT MAGNESIUM Routine 07/14/2017 3:20 AM EDT HEMOGLOBIN A1C Routine 07/14/2017 3:20 AM EDT LIPID PANEL (REFLEX DIRECT LDL) Routine 07/14/2017 3:20 AM EDT BASIC METABOLIC PANEL Routine 07/14/2017 3:20 AM EDT ON AIR DIRECTOR SCAN 07/14/2017 12:00 AM EDT CARDIAC ENZYMES ([facility]) Routine 07/13/2017 9:10 PM EDT XR CHEST ONE VIEW Routine 07/13/2017 7:5 5 PM EDT POCT GLUCOSE Routine 07/13/2017 7:30 PM EDT EKG 12-LEAD Routine 07/13/2017 3:[address] elevation myocardial infarction (STEMI), unspecified artery POCT GLUCOSE Routine 07/13/2017 3:01 PM EDT HEMOGRAM STAT 07/13/2017 3:00 PM EDT DIFFERENTIAL, AUTOMATED STAT 07/13/20 3:00 PM EDT CARDIAC ENZYMES ([facility]) STAT [...] (Bezet) 409 ms MUSE SYSTEM Calculated P [place] 30 degrees MUSE SYSTEM Calculated R [place] 21 degrees MUSE SYSTEM Calculated T [place] 14 degrees MUSE SYSTEM INTERPRETATION Normal sinus rhythm Inferior-bilingual medical receptionist ior infarct , age undetermined Abnormal ECG When compared with ECG of 15-JUL-2017 07:31, Inferior-bilingual medical receptionist ior infarct is now Present Inverted T waves have replaced nonspecific T wave abnormality in Inferior leads Confirmed by MD Jennie, Severiano ([id number]) on 07/16/2017 5:00:13 PM MUSE SYSTEM 07/16/2017 6:45 AM EDT 07/16/2017 5:00 PM EDT Ky Amato MD ECG ORDERABLES MUSE SYSTEM * Differential, Automated (07/16/2017 5:16 AM EDT) Pathologist [facility] Neutrophil % 61.5 % [facility] Neutrophil Absolute 5.29 1.70 - 6.10 x10(3)/[facility] LABORATORY Lymph % 28.6 % [facility] Lymphocytes Abs 2.5 0.9 - 3.2 x10(3)/[facility] LABORATORY Monocyte % 7.7 % [facility] Monocyte Abs 0.7 0.3 - 0.9 x10(3)/[facility] LABORATORY Eos % 1.2 % [facility] Eosinophils Abs 0.1 0.0 - 0.4 x10(3)/[facility] LABORATORY Basophil % 0.5 % [facility] Baso Absolute 0.0 0.0 - 0.1 x10(3)/[facility] LABORATORY Immature Gran % 0.50 % [facility] Comment: Immature granulocytes(IG's)percentage and absolute count will include metamyelocytes, myelocytes, and promyelocytes. Blood smears from CBCs yielding IG's will be scanned manually for concordance. If this scan disagrees with the automated IG or if promyelocytes are noted, a manual differential will be performed. Immature Gran Absolute 0.04 0.00 - 0.04 x10(3)/[facility] LABORATORY Blood specimen (specimen) 07/16/2017 5:16 AM EDT 07/16/2017 5:31 AM EDT Narrative Resulting Agency Comment Spec In Lab Ky Amato MD HEMATOLOGY ORDERABLE S [facility] [place] [address] * (ABNORMAL) Hemogram (07/16/2017 5:16 AM EDT) Pathologist [facility] White Blood Cell 8.6 4.0 - 9.5 x10(3)/mc L [facility] Red Blood Cell 3.94(L) 4.58 - 5.54 x10(6)/mc L [facility] Hemoglobin 11.6(L) 13.7 - 16.5 gm/dL [facility] Hematocrit 34.5(L) 40.5 - 48.5 % [facility] Mean Cell Volume 87.6 82.9 - 93.1 fL [facility] Mean Cell Hemoglobin 29.4 27.5 - 32.1 pg [facility] Mean Cell Hemoglobin Concentration 33.6 32.0 - 35.7 gm/dL [facility] Platelet 128(L) 145 - 357 x10(3)/mc L [facility] RDW Standard Deviation 43.5 36.0 - 45.0 fL [facility] RDW coefficient of variation 13.5 11.4 - 13.8 % [facility] Mean Platelet Volume 10.0 7.6 - 12.9 fL [facility] NRBC% auto 0.0 % [facility] NRBC Absolute 0.000 0.000 - 0.000 x10(3)/mc L [facility] Blood specimen (specimen) 07/16/2017 5:16 AM EDT 07/16/2017 5:31 AM EDT Narrative Resulting Agency Comment Spec In Lab Ky Amato MD HEMATOLOGY ORDERABLE S Performing Organization Address City/[facility] [place] [address] * Magnesium (07/16/2017 5:16 AM EDT) Magnesium 0.82 0.69 - 1.07 mmol/L [facility] Blood specimen (specimen) 07/16/2017 5:16 AM EDT 07/16/2017 5:31 AM EDT Narrative Resulting Agency Comment Spec In Lab Ky Amato MD CHEMISTRY ORDERABLES Performing Organization Address City/[facility] Co de Phone Number [facility] [place] [address] * Basic Metabolic Panel (non-fasting) (07/16/2017 5:16 AM EDT) Glucose 107 65 - 199 mg/dL [facility] Comment:Diabetes: >=200 mg/d L plus symptoms Blood Urea Nitrogen 11 10 - 20 mg/dL [facility] Creatinine 1.05 0.80 - 1.50 mg/dL [facility] Comment: Please note that the pediatric reference intervals supplied above were not validated at [facility]. Results from pediatric patients should be interpreted in conjunction to the patient's age, height and muscle mass. Sodium 139 135 - 145 mmol/L [facility] Potassium 4.0 3.5 - 5.0 mmol/L [facility] Comment: Please note: ??Patients with WBC >100,000 may have falsely elevated Potassium levels. ??For accurate Potassium quantification in these patients send serum separator tube (gold top) for subsequent determinations. ??Contact the Clinical Chemistry Laboratory if there are any questions. Chloride 101 98 - 107 mmol/L [facility] Carbon Dioxide 26 22 - 31 mmol/L [facility] Anion Gap 12 5 - 15 mmol/L [facility] Calcium 9.0 8.5 - 10.5 mg/dL [facility] Est Glomerular Filtration Rate >60 >=60 [...] the following links into your internet browser. [email or web address] [email or web address] Blood specimen (specimen) 07/16/2017 5:16 AM EDT 07/16/2017 5:31 AM EDT Narrative Resulting Agency Comment Spec In Lab Ky Amato MD CHEMISTRY ORDERABLES [facility] [place] [address] * ECHO COMPLETE (07/15/2017 11:23 AM EDT) EF 60 HEARTLAB SYSTEM Anatomical Region Laterality Modality Other 07/15/2017 Narrative 07/15/2017 1:08 PM EDT Procedure: ?Transthoracic Echocardiogram Patient: ?ISAAC SHERWOOD M ?(Age): 1970(46y) Med Rec#: ? [id number] ?Sex: ?M ? Site Loc: ? [facility] ?Ht / Wt: ??168(cm)/173(kg) Pt. Loc: ?Echo Lab ?BSA: ?2.64 Study Date: ?? 07/15/2017 ?Pt. Type: Inpatient Tape: ? Referring: SEVERO GREEN R Referring: Ky Amato Reading: Dao Perez ([id number]) Adzing And Boring Machine Helper: Gabriel Silva [facility] Diagnosis: *ICD-10-PCS ST elevation (STEMI) myocardial infarction of unspecified site (I21.3) BP: ? 100/60 SUMMARY: 1. The left ventricular chamber size is normal. ??There is normal global left ventricular systolic function. ??The quantitative left ventricular ejection fraction by biplane Malik's method is 60%. ??There are left ventricular segmental wall motion abnormalities present at [facility] inferolateral wall, as coded in the [...] E-wave Vmax ?0.9 ?m/sec ? MV deceleration [id number] ?msec ? MV A-wave Vmax ?0.5 ?m/sec [...] Mid-Inferior ?Normal ? Mid-Inferoseptal ?Normal ? [place]-Septal ? Normal ? [place]-Anterior ? Normal ? [place]-Lateral ?Normal ? [place]-Inferior ? Normal ? [place]-Tip ?Normal ? This report has been electronically signed by: Dao Perez MD ? 07/15/2017 13:08:41 Images reviewed and interpretation verified [facility] Cardiac Ultrasound Laboratory Procedure Note Dao Perez MD - 07/15/2017 Procedure: Transthoracic Echocardiogram Patient: ISAAC Rodney (Age): 1970(46y) Med Rec#: [id number] Sex: M Site Loc: [facility] Ht / Wt: 168(cm)/173(kg) Pt. Loc: Echo Lab BSA: 2.64 Study Date: 07/15/2017 Pt. Type: Inpatient Tape: Referring: SEVERO GREEN R Referring: Ky Amato Reading: Dao Perez ([id number]) Adzing And Boring Machine Helper: Gabriel Silva [facility] Diagnosis: *ICD-10-PCS ST elevation (STEMI) myocardial infarction of unspecified site (I21.3) BP: 100/60 SUMMARY: 1. The left ventricular chamber size is normal. There is normal global left ventricular systolic function. The quantitative left ventricular ejection fraction by biplane Malik's method is 60%. There are left ventricular segmental wall motion abnormalities present at [facility] inferolateral wall, as coded in the [...] MV E-wave Vmax 0.9 m/sec MV deceleration [id number] msec MV A-wave Vmax 0.5 m/sec MV [...] Normal Mid-Posterolateral Akinetic Mid-Inferior Normal Mid-Inferoseptal Normal [place]-Septal Normal [place]-Anterior Normal [place]-Lateral Normal [place]-Inferior Normal [place]-Tip Normal This report has been electronically signed by: Dao Perez MD 07/15/2017 13:08:41 Images reviewed and interpretation verified [facility] Cardiac Ultrasound Laboratory Ky Amato MD ECHO ORDERABLES * EKG 12 Lead (07/15/2017 7:31 AM EDT) Ventricular rate 81 BPM MUSE SYSTEM Atrial Rate 81 BPM MUSE SYSTEM P-R Interval 134 ms MUSE SYSTEM QRS Duration 94 ms MUSE SYSTEM Q-T Interval 354 ms MUSE SYSTEM QTC Calculated (Bezet) 411 ms MUSE SYSTEM Calculated P [place] 36 degrees MUSE SYSTEM Calculated R [place] 36 degrees MUSE SYSTEM Calculated T [place] 45 degrees MUSE SYSTEM INTERPRETATION Normal sinus rhythm Normal ECG When compared with ECG of 14-JUL-2017 08:54, (unconfirmed) Criteria for Inferior-posterio r infarct are no longer Present I personally reviewed the tracing and edited the fellows interpretation Confirmed by fellow MD Linda, Jerri Rodney ([id number]) on 07/15/2017 11:45:01 AM Confirmed by MEÑO, ??KY PANDEY ([id number]) on 07/15/2017 12:47:33 PM MUSE SYSTEM 07/15/2017 7:31 AM EDT 07/15/2017 12:47 PM EDT Ky Amato MD ECG ORDERABLES MUSE SYSTEM * (ABNORMAL) Differential, Automated (07/15/2017 4:37 AM EDT) Neutrophil % 65.1 % [facility] Neutrophil Absolute 6.19(H) 1.70 - 6.10 x10(3)/mc L [facility] Lymph % 23.2 % [facility] Lymphocytes Abs 2.2 0.9 - 3.2 x10(3)/mc L [facility] Monocyte % 9.7 % [facility] Monocyte Abs 0.9 0.3 - 0.9 x10(3)/mc L [facility] Eos % 1.3 % [facility] Eosinophils Abs 0.1 0.0 - 0.4 x10(3)/mc L [facility] Basophil % 0.3 % [facility] Baso Absolute 0.0 0.0 - 0.1 x10(3)/mc L [facility] Immature Gran % 0.40 % [facility] Comment: Immature granulocytes(IG's)percentage and absolute count will include metamyelocytes, myelocytes, and promyelocytes. Blood smears from CBCs yielding IG's will be scanned manually for concordance. If this scan disagrees with the automated IG or if promyelocytes are noted, a manual differential will be performed. Immature Gran Absolute 0.04 0.00 - 0.04 x10(3)/mc L [facility] Blood specimen (specimen) 07/15/2017 4:37 AM EDT 07/15/2017 4:46 AM EDT Narrative Resulting Agency Comment Spec In Lab Ky Amato MD HEMATOLOGY ORDERABLE S [facility] [facility] [place] [address] * (ABNORMAL) Hemogram (07/15/2017 4:37 AM EDT) White Blood Cell 9.5 4.0 - 9.5 x10(3)/[facility] LABORATORY Red Blood Cell 4.24(L) 4.58 - 5.54 x10(6)/[facility] LABORATORY Hemoglobin 12.3(L) 13.7 - 16.5 gm/dL [facility] Hematocrit 36.5(L) 40.5 - 48.5 % [facility] Mean Cell Volume 86.1 82.9 - 93.1 [facility] LABORATORY Mean Cell Hemoglobin 29.0 27.5 - 32.1 pg [facility] Mean Cell Hemoglobin Concentration 33.7 32.0 - 35.7 gm/dL [facility] Platelet 145 145 - 357 x10(3)/[facility] LABORATORY RDW Standard Deviation 42.3 36.0 - 45.0 [facility] LABORATORY RDW coefficient of variation 13.5 11.4 - 13.8 % [facility] Mean Platelet Volume 10.2 7.6 - 12.9 [facility] LABORATORY NRBC% auto 0.0 % [facility] NRBC Absolute 0.000 0.000 - 0.000 x10(3)/ L [facility] Blood specimen (specimen) 07/15/2017 4:37 AM EDT 07/15/2017 4:46 AM EDT Narrative Resulting Agency Comment Spec In Lab Ky Amato MD HEMATOLOGY ORDERABLE S Performing Organization Address City/[facility]/ZIP Co de Phone Number [facility] [place] [address] * Magnesium (07/15/2017 4:37 AM EDT) [facility] Magnesium 0.96 0.69 - 1.07 mmol/L [facility] Blood specimen (specimen) 07/15/2017 4:37 AM EDT 07/15/2017 4:46 AM EDT Narrative Resulting Agency Comment Spec In Lab Ky Amato MD CHEMISTRY ORDERABLES Performing Organization Address [facility] Co de Phone Number [facility] [place] [address] * Basic Metabolic Panel (non-fasting) (07/15/2017 4:37 AM EDT) [facility] Glucose 114 65 - 199 mg/dL [facility] Comment:Diabetes: >=200 mg/d L plus symptoms Blood Urea Nitrogen 10 10 - 20 mg/dL [facility] Creatinine 0.88 0.80 - 1.50 mg/dL [facility] Comment: Please note that the pediatric reference intervals supplied above were not validated at [facility]. Results from pediatric patients should be interpreted in conjunction to the patient's age, height and muscle mass. Sodium 137 135 - 145 mmol/L [facility] Potassium 4.1 3.5 - 5.0 mmol/L [facility] Comment: Please note: ??Patients with WBC >100,000 may have falsely elevated Potassium levels. ??For accurate Potassium quantification in these patients send serum separator tube (gold top) for subsequent determinations. ??Contact the Clinical Chemistry Laboratory if there are any questions. Chloride 100 98 - 107 mmol/L [facility] Carbon Dioxide 25 22 - 31 mmol/L [facility] Anion Gap 12 5 - 15 mmol/L [facility] Calcium 8.9 8.5 - 10.5 mg/dL [facility] Est Glomerular Filtration Rate >60 >=60 [...] the following links into your internet browser. [email or web address] [email or web address] Blood specimen (specimen) 07/15/2017 4:37 AM EDT 07/15/2017 4:46 AM EDT Narrative Resulting Agency Comment Spec In Lab Ky Amato MD CHEMISTRY ORDERABLES Performing Organization Address [facility] Co de Phone Number [facility] [place] [address] * EKG 12 Lead (07/14/2017 8:54 AM EDT) Ventricular rate 84 BPM MUSE SYSTEM Atrial Rate 84 BPM MUSE SYSTEM P-R Interval 148 ms MUSE SYSTEM QRS Duration 96 ms MUSE SYSTEM Q-T Interval 366 ms MUSE SYSTEM QTC Calculated (Bezet) 432 ms MUSE SYSTEM Calculated P [place] 40 degrees MUSE SYSTEM Calculated R [place] 36 degrees MUSE SYSTEM Calculated T [place] 62 degrees MUSE SYSTEM INTERPRETATION Normal sinus rhythm Low voltage QRS Inferior-po sterior infarct (cited on or before 13-JUL-2017 ) Abnormal ECG When compared with ECG of 13-JUL-2017 15:02, (unconfirme d) Serial changes of evolving Inferior-po sterior infarct Present Confirmed by MD Alecia, Ruperto Moya ([id number]) on 07/15/2017 12:53:12 PM MUSE SYSTEM 07/14/2017 8:54 AM EDT 07/15/2017 12:53 PM EDT Ky Amato MD ECG ORDERABLES Performing Organization Address [facility] Co de Phone Number MUSE SYSTEM * POCT Glucose (07/14/2017 8:07 AM EDT) Glucose, POC 122 65 - 199 mg/dL [facility] Comment: Supplemental ranges: <140 mg/dL before meals <180 mg/dL all other times of the day Blood specimen (specimen) 07/14/2017 8:07 AM EDT 07/14/2017 8:07 AM EDT Ky Amato MD POINT OF CARE TEST O RDERABLES [facility] [place] [address] * (ABNORMAL) Cardiac Enzymes (07/14/2017 3:20 AM EDT) Troponin-T 5.83(H) 0.00 - 0.00 ng/mL [facility] Comment: result rechecked-[facility] The 99th percentile for Troponin T is less than 0.01 ng/mL, any detectable cTnT concentration using this assay should be considered elevated. According to the third universal definition of myocardial infarction the following criteria with a clinical presentation consistent with acute myocardial ischemia meets the diagnosis for a myocardial infarction ([place]). Detection of a rise and/or fall of cTnT, with at least one value greater than the 99th percentile (> or = 0.01) and with at least one of the following ?? Symptoms of ischemia ?? New or presumed new significant CU-bogjkdv-V wave (ST-T) changes or new left bundle [...] additional sample may be indicated. Reference: Third [place] Definition of Myocardial Infarction. Journal of the [employer] 2012;60:1581-98 Creatine Kinase 2,165(H) 0 - 200 unit/L [facility] Blood specimen (specimen) Venous Draw / Unknown 07/14/2017 3:20 AM EDT 07/14/2017 3:33 AM EDT Narrative Resulting Agency Comment Spec In Lab Ky Amato MD CHEMISTRY ORDERABLES [facility] [place] [address] * (ABNORMAL) Differential, Automated (07/14/2017 3:20 AM EDT) Neutrophil % 81.8 % [facility] Neutrophil Absolute 9.44(H) 1.70 - 6.10 x10(3)/mc L [facility] Lymph % 11.2 % [facility] Lymphocytes Abs 1.3 0.9 - 3.2 x10(3)/ L [facility] Monocyte % 6.2 % [facility] Monocyte Abs 0.7 0.3 - 0.9 x10(3)/[facility] LABORATORY Eos % 0.1 % [facility] Eosinophils Abs 0.0 0.0 - 0.4 x10(3)/[facility] LABORATORY Basophil % 0.3 % [facility] Baso Absolute 0.0 0.0 - 0.1 x10(3)/mc L [facility] Immature Gran % 0.40 % [facility] Comment: Immature granulocytes(IG's)percentage and absolute count will include metamyelocytes, myelocytes, and promyelocytes. Blood smears from CBCs yielding IG's will be scanned manually for concordance. If this scan disagrees with the automated IG or if promyelocytes are noted, a manual differential will be performed. Immature Gran Absolute 0.05(H) 0.00 - 0.04 x10(3)/mc L [facility] Blood specimen (specimen) 07/14/2017 3:20 AM EDT 07/14/2017 3:33 AM EDT Narrative Resulting Agency Comment Spec In Lab Ky Amato MD HEMATOLOGY ORDERABLE S [facility] [place] [address] * (ABNORMAL) Hemogram (07/14/2017 3:20 AM EDT) White Blood Cell 11.5(H) 4.0 - 9.5 x10(3)/mc L [facility] Red Blood Cell 4.56(L) 4.58 - 5.54 x10(6)/mc L [facility] Hemoglobin 13.5(L) 13.7 - 16.5 gm/dL [facility] Hematocrit 38.8(L) 40.5 - 48.5 % [facility] Mean Cell Volume 85.1 82.9 - 93.1 fL [facility] Mean Cell Hemoglobin 29.6 27.5 - 32.1 pg [facility] Mean Cell Hemoglobin Concentration 34.8 32.0 - 35.7 gm/dL [facility] Platelet 197 145 - 357 x10(3)/mc L [facility] RDW Standard Deviation 42.0 36.0 - 45.0 [facility] LABORATORY RDW coefficient of variation 13.6 11.4 - 13.8 % [facility] Mean Platelet Volume 10.4 7.6 - 12.9 [facility] LABORATORY NRBC% auto 0.0 % [facility] NRBC Absolute 0.000 0.000 - 0.000 x10(3)/mc L [facility] Blood specimen (specimen) 07/14/2017 3:20 AM EDT 07/14/2017 3:33 AM EDT Narrative Resulting Agency Comment Spec In Lab Ky Amato MD HEMATOLOGY ORDERABLE S [facility] [place] [address] * Magnesium (07/14/2017 3:20 AM EDT) Magnesium 0.70 0.69 - 1.07 mmol/L [facility] Blood specimen (specimen) 07/14/2017 3:20 AM EDT 07/14/2017 3:33 AM EDT Narrative Resulting Agency Comment Spec In Lab Ky Amato MD CHEMISTRY ORDERABLES [facility] [place] [address] * (ABNORMAL) Basic Metabolic Panel (non-fasting) (07/14/2017 3:20 AM EDT) Glucose 129 65 - 199 mg/dL [facility] Comment:Diabetes: >=200 mg/d L plus symptoms Blood Urea Nitrogen 11 10 - 20 mg/dL [facility] Creatinine 0.79(L) 0.80 - 1.50 mg/dL [facility] Comment: Please note that the pediatric reference intervals supplied above were not validated at [facility]. Results from pediatric patients should be interpreted in conjunction to the patient's age, height and muscle mass. Sodium 139 135 - 145 mmol/L [facility] Potassium 4.3 3.5 - 5.0 mmol/L [facility] Comment: Please note: ??Patients with WBC >100,000 may have falsely elevated Potassium levels. ??For accurate Potassium quantification in these patients send serum separator tube (gold top) for subsequent determinations. ??Contact the Clinical Chemistry Laboratory if there are any questions. Chloride 103 98 - 107 mmol/L [facility] Carbon Dioxide 22 22 - 31 mmol/L [facility] Anion Gap 14 5 - 15 mmol/L [facility] Calcium 8.6 8.5 - 10.5 mg/dL [facility] Est Glomerular Filtration Rate >60 >=60 [...] the following links into your internet browser. [email or web address] [email or web address] Blood specimen (specimen) 07/14/2017 3:20 AM EDT 07/14/2017 3:33 AM EDT Narrative Resulting Agency Comment Spec In Lab Ky Amato MD CHEMISTRY ORDERABLES Performing Organization Address [facility] Co de Phone Number [facility] [place] [address] * TSH (07/14/2017 3:20 AM EDT) Thyroid Stimulating Hormone 1.55 0.27 - 4.20 mlU/ML [facility] Blood specimen (specimen) 07/14/2017 3:20 AM EDT 07/14/2017 3:33 AM EDT Narrative Resulting Agency Comment Spec In Lab Ky Amato MD CHEMISTRY ORDERABLES Performing Organization Address [facility] Co de Phone Number [facility] [place] [address] * (ABNORMAL) Lipid Panel (07/14/2017 3:20 AM EDT) Cholesterol, Total 121 <=239 mg/dL [facility] Triglyceride 72 <=199 mg/dL [facility] HDL Cholesterol 37(L) >=40 mg/dL [facility] LDL Cholesterol 70 <=190 mg/dL [facility] Cholesterol/HDL Ratio 3.3 ratio [facility] Lipid Interpretation See Note [facility] Comment: Lipid management should be guided by a patient? s ASCVD risk, goals and preferences. ACC/AHA Guidelines recommend high intensity statin if clinical ASCVD or LDL greater than or equal to 190 mg/dL. http://[employer]/GOT-MTO-Frfdzbwqf Adults aged 40-75 with LDL 70-189 mg/dL should have their 10 year ASCVD risk estimated with the ACC/AHA ASCVD risk cvir tech http://tools.acc.org/AESLF-Owsv-Lyjsbqcfr/ Statin should be discussed if risk greater [...] In Lab Ky Amato MD CHEMISTRY ORDERABLES [facility] [place] [address] * Hemoglobin A1c (07/14/2017 3:20 AM EDT) Hemoglobin A1c 5.1 4.3 - 5.6 % [facility] Comment: Reference Range: [...] Mellitus, Diabetes Care 2013; 36: Suppl. 1, G31-24 Estimated Average Glucose 100 mg/dL [facility] [...] into estimated average glucose values. ??Diabetes Care 2008:31(8):7509-5856. Blood specimen (specimen) 07/14/2017 3:20 AM EDT 07/14/2017 3:33 AM EDT Narrative Resulting Agency Comment Spec In Lab Ky Amato MD CHEMISTRY ORDERABLES [facility] [place] [address] * SCAN DOC: ON AIR DIRECTOR (07/14/2017 12:00 AM EDT) Anatomical Region Laterality Modality Other Narrative 07/14/2017 12:00 AM EDT Ordered by an unspecified provider. Scanning Provider MEDIA MGR SCAN EXT O RDR/RSLT * (ABNORMAL) Cardiac Enzymes (07/13/2017 9:10 PM EDT) Troponin-T 7.00(H) 0.00 - 0.00 ng/mL [facility] Comment: Result rechecked. The 99th percentile for Troponin T is less than 0.01 ng/mL, any detectable cTnT concentration using this assay should be considered elevated. According to the third universal definition of myocardial infarction the following criteria with a clinical presentation consistent with acute myocardial ischemia meets the diagnosis for a myocardial infarction ([place]). Detection of a rise and/or fall of cTnT, with at least one value greater than the 99th percentile (> or = 0.01) and with at least one of the following ?? Symptoms of ischemia ?? New or presumed new significant CY-mrwfmjy-J wave (ST-T) changes or new left bundle [...] additional sample may be indicated. Reference: Third [place] Definition of Myocardial Infarction. Journal of the [place] College of Cardiology 2012;60:1581-98 Creatine Kinase 2,820(H) 0 - 200 unit/L [facility] Blood specimen (specimen) 07/13/2017 9:10 PM EDT 07/13/2017 9:14 PM EDT Narrative Resulting Agency Comment Spec In Lab Ky Amato MD CHEMISTRY ORDERABLES [facility] [place] [address] * XR Chest PA or AP 1 [...] * POCT Glucose (07/13/2017 7:30 PM EDT) [facility] Glucose, POC 110 65 - 199 mg/dL [facility] Comment: Supplemental ranges: <140 mg/dL before meals <180 mg/dL all other times of the day Blood specimen (specimen) 07/13/2017 7:30 PM EDT 07/13/2017 7:30 PM EDT Ky Amato MD POINT OF CARE TEST O RDERABLES [facility] [place] [address] * EKG 12 Lead (07/13/2017 3:02 PM EDT) Ventricular rate 76 BPM MUSE SYSTEM Atrial Rate 76 BPM MUSE SYSTEM P-R Interval 158 ms MUSE SYSTEM QRS Duration 92 ms MUSE SYSTEM Q-T Interval 378 ms MUSE SYSTEM QTC Calculated (Bezet) 425 ms MUSE SYSTEM Calculated P [place] 39 degrees MUSE SYSTEM Calculated R [place] 51 degrees MUSE SYSTEM Calculated T [place] 68 degrees MUSE SYSTEM INTERPRETATION Normal sinus rhythm Inferior-poste rior infarct , possibly acute * ACUTE GA ?? Consider right ventricular involvement in acute inferior infarct Abnormal ECG No previous ECGs available Confirmed by MD Alston Gregory A. ([id number]) on 07/15/2017 12:53:01 PM MUSE SYSTEM 07/13/2017 3:02 PM EDT 07/15/2017 12:53 PM EDT Ky Amato MD ECG ORDERABLES MUSE SYSTEM * POCT Glucose (07/13/2017 3:01 PM EDT) Glucose, POC 113 65 - 199 mg/dL [facility] Comment: Supplemental ranges: <140 mg/dL before meals <180 mg/dL all other times of the day Blood specimen (specimen) 07/13/2017 3:01 PM EDT 07/13/2017 3:01 PM EDT Ky Amato MD POINT OF CARE TEST O RDERABLES Performing Organization Address City/[facility]/ZIP Co de Phone Number [facility] [place] [address] * (ABNORMAL) Differential, Automated (07/13/2017 3:00 PM EDT) Pathologist [facility] Neutrophil % 80.0 % [facility] Neutrophil Absolute 8.14(H) 1.70 - 6.10 x10(3)/mc L [facility] Lymph % 14.4 % [facility] Lymphocytes Abs 1.5 0.9 - 3.2 x10(3)/mc L [facility] Monocyte % 4.8 % [facility] Monocyte Abs 0.5 0.3 - 0.9 x10(3)/mc L [facility] Eos % 0.1 % [facility] Eosinophils Abs 0.0 0.0 - 0.4 x10(3)/mc L [facility] Basophil % 0.3 % [facility] Baso Absolute 0.0 0.0 - 0.1 x10(3)/mc L [facility] Immature Gran % 0.40 % [facility] Comment: Immature granulocytes(IG's)percentage and absolute count will include metamyelocytes, myelocytes, and promyelocytes. Blood smears from CBCs yielding IG's will be scanned manually for concordance. If this scan disagrees with the automated IG or if promyelocytes are noted, a manual differential will be performed. Immature Gran Absolute 0.04 0.00 - 0.04 x10(3)/ L [facility] Blood specimen (specimen) 07/13/2017 3:00 PM EDT 07/13/2017 3:18 PM EDT Narrative Resulting Agency Comment Spec In Lab Ky Amato MD HEMATOLOGY ORDERABLE S [facility] [place] [address] * (ABNORMAL) Hemogram (07/13/2017 3:00 PM EDT) White Blood Cell 10.2(H) 4.0 - 9.5 x10(3)/[facility] LABORATORY Red Blood Cell 4.60 4.58 - 5.54 x10(6)/[facility] LABORATORY Hemoglobin 13.4(L) 13.7 - 16.5 gm/dL [facility] Hematocrit 39.8(L) 40.5 - 48.5 % [facility] Mean Cell Volume 86.5 82.9 - 93.1 [facility] Mean Cell Hemoglobin 29.1 27.5 - 32.1 pg [facility] Mean Cell Hemoglobin Concentration 33.7 32.0 - 35.7 gm/dL [facility] Platelet 193 145 - 357 x10(3)/[facility] LABORATORY RDW Standard Deviation 41.3 36.0 - 45.0 [facility] LABORATORY RDW coefficient of variation 13.4 11.4 - 13.8 % [facility] Mean Platelet Volume 9.9 7.6 - 12.9 [facility]ATORY NRBC% auto 0.0 % [facility] NRBC Absolute 0.000 0.000 - 0.000 x10(3)/ L [facility] Blood specimen (specimen) 07/13/2017 3:00 PM EDT 07/13/2017 3:18 PM EDT Narrative Resulting Agency Comment Spec In Lab Ky Amato MD HEMATOLOGY ORDERABLE S Performing Organization Address [facility] Co de Phone Number [facility] [place] [address] * (ABNORMAL) APTT (07/13/2017 3:00 PM EDT) Partial Thromboplastin Time 138(Criti torey) 25 - 35 sec [facility] Comment: Called by: [facility], Read back by: Germaine Núñez/NINO, Date/Time:07/13/17 15:39. The recommended therapeutic range for full dose, unfractionated heparin at [facility] is 80 ? 114 seconds. The use of the anti-Xa (heparin) level rather than the PTT is recommended for monitoring anticoagulation intensity in critically ill patients receiving unfractionated heparin by continuous IV infusion. Blood specimen (specimen) 07/13/2017 3:00 PM EDT 07/13/2017 3:18 PM EDT Narrative Resulting Agency Comment Spec In Lab Ky Amato MD HEMATOLOGY ORDERABLE S Performing Organization Address [facility] Co de Phone Number [facility] [place] [address] * (ABNORMAL) Prothrombin Time (07/13/2017 3:00 PM EDT) Prothrombin Time 16.0(H) 12.0 - 15.0 sec [facility] Comment: An INR [...] International Normalization Ratio 1.2(H) 0.9 - 1.1 [facility] Blood specimen (specimen) 07/13/2017 3:00 PM EDT 07/13/2017 3:18 PM EDT Narrative Resulting Agency Comment Spec In Lab Ky Amato MD HEMATOLOGY ORDERABLE S Performing Organization Address [facility]/ZIP Co de Phone Number [facility] [place] [address] * (ABNORMAL) Cardiac Enzymes (07/13/2017 3:00 PM EDT) Troponin-T 4.96(H) 0.00 - 0.00 ng/mL [facility] Comment: The 99th percentile for Troponin T is less than 0.01 ng/mL, any detectable cTnT concentration using this assay should be considered elevated. According to the third universal definition of myocardial infarction the following criteria with a clinical presentation consistent with acute myocardial ischemia meets the diagnosis for a myocardial infarction ([place]). Detection of a rise and/or fall of cTnT, with at least one value greater than the 99th percentile (> or = 0.01) and with at least one of the following ?? Symptoms of ischemia ?? New or presumed new significant OD-yzmcpmm-W wave (ST-T) changes or new left bundle [...] additional sample may be indicated. Reference: Third [place] Definition of Myocardial Infarction. Journal of the [place] College [employer]iology 2012;60:1581-98 Creatine Kinase 2,712(H) 0 - 200 unit/L [facility] Blood specimen (specimen) 07/13/2017 3:00 PM EDT 07/13/2017 3:18 PM EDT Narrative Resulting Agency Comment Spec In Lab Ky Amato MD CHEMISTRY ORDERABLES Performing Organization Address [facility]/ZIP Co de Phone Number [facility] [place] [address] * (ABNORMAL) Comprehensive metabolic panel (non-fasting) (07/13/2017 3:00 PM EDT) Glucose 119 65 - 199 mg/dL [facility] Comment:Diabetes: >=200 mg/d L plus symptoms Blood Urea Nitrogen 11 10 - 20 mg/dL [facility] Creatinine 1.01 0.80 - 1.50 mg/dL [facility] Comment: Please note that the pediatric reference intervals supplied above were not validated at [facility]. Results from pediatric patients should be interpreted in conjunction to the patient's age, height and muscle mass. Sodium 139 135 - 145 mmol/L [facility] Potassium 4.4 3.5 - 5.0 mmol/L [facility] Comment: Please note: ??Patients with WBC >100,000 may have falsely elevated Potassium levels. ??For accurate Potassium quantification in these patients send serum separator tube (gold top) for subsequent determinations. ??Contact the Clinical Chemistry Laboratory if there are any questions. Chloride 103 98 - 107 mmol/L [facility] Carbon Dioxide 24 22 - 31 mmol/L [facility] Anion Gap 12 5 - 15 mmol/L [facility] Calcium 8.4(L) 8.5 - 10.5 mg/dL [facility] Protein, Total 6.0(L) 6.1 - 8.0 gm/dL [facility] Albumin 3.0(L) 3.2 - 5.2 gm/dL [facility] Aspartate Aminotransferase 193(H) 0 - 39 unit/L [facility] Alanine Aminotransferase 35 0 - 55 unit/L [facility] [facility] Alkaline Phosphatase 44 40 - 120 unit/L [facility] Bilirubin, Total 0.6 0.2 - 1.3 mg/dL [facility] Est Glomerular Filtration Rate >60 >=60 [facility] Comment: This estimated GFR (eGFR) value [...] the following links into your internet browser. [email or web address]/DHnkdep [email or web address]/DHMCnkf Blood specimen (specimen) 07/13/2017 3:00 PM EDT 07/13/2017 3:18 PM EDT Narrative Resulting Agency Comment Spec In Lab Ky Amato MD CHEMISTRY ORDERABLES Performing Organization Address [facility]/State/[facility] Co de Phone Number [facility] [place] [address] * CARDIAC CATHETERIZATION (07/13/2017 2:29 PM EDT) Anatomical Region Laterality Modality Other Narrative 07/13/2017 2:53 PM EDT ?[facility] ? Cardiac Catheterization/Intervention Report ? Patient Name: Rolo Aguilar ? Procedure Date: 07/13/2017 ? A #: [id number] ? Primary Physician: Hwite, Neftali V ? Case #: [id number] ? File Name: [id number] ? Catheterization Order Number: [id number] ? [facility] ? Final Report [place], [place] ? Patient Name: ? Rolo Aguilar ? ID#: ?[id number] ? : ?1970 ? Procedure Date: ? July 13, 2017 ?Case #: ? [id number] ? Room: ? 5 ? Case Physician: ? Neftali Rudi White, M.D. ? Start: ?12:30 ?Fellow: ? Raghavendra [...] at Catheterization: ?The patient presented with: ST-Elevation GA (STEMI) or equivalent (w/i 7 ?days). [employer] angina class was IV. This [...] dose administered prior to arrival in the laboratory cureman. ?Recommend continuing clopidogrel 75 mg PO daily [...] Procedure Note Neftali White MD - 10/23/2017 [facility] Cardiac Catheterization/Intervention Report Patient Name: Rolo Aguilar Procedure Date: 07/13/2017 A #: [id number] Primary Physician: Neftali White V Case #: [id number] File Name: [id number] Catheterization Order Number: [id number] [facility] FinalReport [place], [place] Patient Name: Rolo Aguilar ID#:[id number] :1970 Procedure Date: July 13, 2017 Case [...] at Catheterization: The patient presented with: ST-Elevation GA (STEMI) or equivalent(w/i 7 days). [employer] angina class was IV. Thispatient [...] priority for the procedure was Emergent. [facility] procedure was STEMI (Stable [...] dose administered prior to arrival in the laboratory cureman. Recommend continuing clopidogrel 75 mg PO daily [...] Neftali White M.D. Electronically Signed by: Neftali hWite M.D. Report Finalized: 07/13/2017 14:45 Report Last [...] Days, EVERY 4 HOURS PRN, Starting on 07/13/17 at 1450, Until 07/14/17 at 0832, Pain, May repeat in 30-60 [...] infusion 50 mL/hr, Intravenous, CONTINUOUS, Starting on 07/13/17 at 1515, Until 07/13/17 at 2014, Recovery (Recovery-Hospital Unit) Rate/Dose [...] Routine 0906 (Given - Provider: Rachana Macias RN)202 (Given - Provider: Db Monsalve) 0820 (Given [...] Db Monsalve)1431 (Given - Provider: Mavis Gamboa RN)203 (Given - Provider: Thor Bobo RN)2200 (Canceled [...] on Fri07/14/17 at 0900, Until Discontinued, Routine 909 (Given - Provider: Rachana Macias RN) 08 [...] on Fri07/13/17 at 2100, Until Discontinued, Routine 905 (Given - Provider: Rachana Macias RN)2024 (Given [...] Routine documented in this encounter Care Teams Forensic Dna Analyst Relationship Specialty Start Date End Date Severo Bowman MD [address] [place] [phone] PCP - General General Internal Medicine 04/21/1707/11 documented as of this encounter
--- OUTSIDE RECORDS SUMMARY | 2024-07-21 11:33 | XMS_ITS | Encounter Summary ---
[place] [address] Care Team Providers Care Pipe Production Worker Name Role Phone Bin Bowman MD Primary Care Provider Reason for Referral * Consultation (Routine) - Closed Specialty Diagnoses / Procedures Referred By Zeyad mishra Referred To Contact Gastroenterology Diagnoses Elevated LFTs Breonna Ambrocio APRN [address] [place] [address] [facility] [address] [place] [phone] Referral ID Status Reason Start Date Expiration Date V isits Requested Visits Authorized [id number] Closed Consult, Test & Treat 10/07/2017 10/07/2018 1 1 * Surgical (Routine) - Specialty Diagnoses / Procedures Referred By Zeyad mishra Referred To Contact Gastroenterology Diagnoses Gastroesophageal reflux disease, esophagitis presence not specified GERD Procedures Farmer Capsule pH Test Farmer Breonna Ambrocio APRN [address] [place] [address] [facility] [address] [place] [id number] Referral ID Status Reason Start Date Expiration Date V isits Requested Visits Authorized [id number] Consult, Test & Treat 10/07/2017 10/07/2018 1 1 Reason for Visit * Reason Comments Follow-up Encounter Details Date Type Department Care Team (Late st Contact Info) Description 10/07/2017 10:00 AM EST Office Visit [place] [address] Breonna Ambrocio, PLASTERER JOURNEYMAN [address] [place] [address] Dysphagia, unspecified type; Gastroesophageal reflux disease, esophagitis [...] Ambrocio APRN - 10/07/2017 10:00 AM EST Burn Out Scarfing Operator: Breonna Ambrocio APRN PCP: Bin Bowman [...] this 31 minute visit were spent in uclm-co-ykzl discussion and counseling the patientas detailed per [...] Was using carafate for a little while. Ruth this helped. Had an EGD in September 2016. Was told everything is normal, although patient states he feels he would like another EGD done by a senior planning analyst and not a general surgeon. Denies dysphagia, odynophagia, globus. Denies regurgitation, nausea, vomiting. Decreased appetite. Early satiety. Post-prandial bloating frequently. Denies chronic NSAID use. No anemia. Abdominal pain related to heartburn and bloating. Denies diarrhea and constipation. No cramping or urgency. No blood or mucus in stool. No anal or rectal pain. 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 [...] 10:53 AM Section of Gastroenterology & Hepatology [facility] ?? documented in this encounter Miscellaneous Notes * Addendum Note - Sindy Lester - 10/07/2017 11:21 AM ESTAddended by: SINDY LESTER on: 10/07/2017 11:21 AM Modules accepted: Orders documented in this encounter Plan of Treatment Upcoming Encounters Date Type Department Care Team (Late st Contact Info) Description 09/21/2024 10:[address] [place] [address] Rachel Carrasco MD [facility] [place] [address] 09/21/2024 11:00 AM EST [place] [address] Rachel Carrasco MD [facility] [place] [address] Scheduled Orders Name Type Priority Associated Diagnoses [...] * Differential, Automated (10/07/2017 11:27 AM EST) Pathologist [facility] Neutrophil % 65.4 % [facility] Neutrophil Absolute 5.68 1.70 - 6.10 x10(3)/[facility] Lymph % 26.3 % [facility] Lymphocytes Abs 2.3 0.9 - 3.2 x10(3)/[facility] Monocyte % 6.3 % [facility] Monocyte Abs 0.6 0.3 - 0.9 x10(3)/[facility] Eos % 1.1 % [facility] Eosinophils Abs 0.1 0.0 - 0.4 x10(3)/[facility] Basophil % 0.6 % [facility] Baso Absolute 0.0 0.0 - 0.1 x10(3)/[facility] Immature Gran % 0.30 % [facility] Comment: Immature granulocytes(IG's)percentage and absolute count will include metamyelocytes, myelocytes, and promyelocytes. Blood smears from CBCs yielding IG's will be scanned manually for concordance. If this scan disagrees with the automated IG or if promyelocytes are noted, a manual differential will be performed. Immature Gran Absolute 0.03 0.00 - 0.04 x10(3)/[facility] Blood specimen (specimen) 10/07/2017 11:27 AM EST 10/07/2017 11:42 AM EST Narrative Resulting Agency Comment Spec In Lab Breonna Ambrocio PLASTERER JOURNEYMAN HEMATOLOGY ORDER BELEN [facility] [place] [address] * (ABNORMAL) Hemogram (10/07/2017 11:27 AM EST) Pathologist [facility] White Blood Cell 8.7 4.0 - 9.5 x10(3)/[facility] Red Blood Cell 5.38 4.58 - 5.54 x10(6)/[facility] Hemoglobin 15.2 13.7 - 16.5 gm/dL [facility] Hematocrit 47.1 40.5 - 48.5 % [facility] Mean Cell Volume 87.5 82.9 - 93.1 fL [facility] Mean Cell Hemoglobin 28.3 27.5 - 32.1 pg [facility] Mean Cell Hemoglobin Concentration 32.3 32.0 - 35.7 gm/dL [facility] Platelet 217 145 - 357 x10(3)/[facility] RDW Standard Deviation 45.0 36.0 - [address] [facility] RDW coefficient of variation 14.1(H) 11.4 - 13.8 % [facility] Mean Platelet Volume 10.3 7.6 - 12.9 [facility] NRBC% auto 0.0 % [facility] NRBC Absolute 0.000 0.000 - 0.000 x10(3)/[facility] Blood specimen (specimen) 10/07/2017 11:27 AM EST 10/07/2017 11:42 AM EST Narrative Resulting Agency Comment Spec In Lab Breonna Ambrocio PLASTERER JOURNEYMAN HEMATOLOGY ORDER BELEN [facility] [place] [address] * IgA (10/07/2017 11:27 AM EST) Pathologist [facility] IgA 264 70 - 400 mg/dL [facility] Blood specimen (specimen) 10/07/2017 11:27 AM EST 10/07/2017 11:41 AM EST Narrative Resulting Agency Comment Spec In Lab Breonna Ambrocio PLASTERER JOURNEYMAN CHEMISTRY ORDERA BLES Performing Organization Address [facility] Co de Phone Number [facility] [place] [address] * Tissue transglutaminase, IgA (10/07/2017 11:27 AM EST) TTG IgA Ab 0.4 0.1 - 10.0 u/ml [facility] Comment: Negative = <7 U/mL Equivocal = 7-10 U/mL Positive = >10 U/mL Blood specimen (specimen) 10/07/2017 11:27 AM EST 10/08/2017 9:01 AM EST Narrative Resulting Agency Comment Spec In Lab Breonna Ambrocio PLASTERER JOURNEYMAN IMMUNOLOGY ORDER BELEN Performing Organization Address [facility] Co de Phone Number [facility] [place] [address] * Lipase (10/07/2017 11:27 AM EST) Pathologist [facility] Lipase 28 0 - 60 unit/L [facility] Blood specimen (specimen) 10/07/2017 11:27 AM EST 10/07/2017 11:41 AM EST Narrative Resulting Agency Comment Spec In Lab Breonna Ambrocio PLASTERER JOURNEYMAN CHEMISTRY ORDERA BLES Performing Organization Address [facility] Co de Phone Number [facility] [place] [address] documented in this encounter Visit Diagnoses Diagnosis Dysphagia, unspecified type Gastroesophageal reflux disease, esophagitis presence not specified Bloating Flatulence, eructation, and gas pain Diarrhea, unspecified type Elevated LFTs Other abnormal blood chemistry documented in this encounter Care Teams Pipe Production Worker Relationship Specialty Start Date End Date Bin Bowman MD [address] [address] PCP - General General Internal Medicine 04/21/1707/11 documented as of this encounter
--- OUTSIDE RECORDS SUMMARY | 2024-07-21 11:33 | XMS_ITS | Encounter Summary ---
Author Organization [facility] Address [facility] [place] [address] Care Team Providers Care Excellence Specialist Name Role Phone Bin Bowman MD Primary Care Provider [phone] Encounter Details Date Type Department Care Team (Latest Contact Info) Description 01/01/2018 4:00 PM EST Tech [place] [address] Ivonne Willis MD [facility] [place] [address] Gastroesophageal reflux disease, esophagitis presence not specified [...] Willis MD - 01/01/2018 4:00 PM EST DCVNG-GSHID-CQBN WIRELESS pH CAPSULE STUDY AFTER UPPER ENDOSCOPY Rolo Aguilar [address] [place] [address] : 1970 STUDY DATE: 12/29/2017 PROVIDER: Ivonne Willis MD ([id number]) INDICATION GERD Note that this study was [...] 14.72) Day One Calculated DeMeester Score: 0.5 Jxwxo-Gdibb-Nhjw (Total) Fraction of Time with pH Less Than 4%: 0.1 Fuijq-Jgewj-Bibf DeMeester Score (Total): 0.5 Day One Symptoms Association Probability (SAP) for Heartburn: 80.1 Chest pain: 0 Day Two SAP for Heartburn: 0 Regurgitation: 0 Qwcfz-Bbtcq-Alig SAP for Heartburn: N/A Chest pain: 0 [...] Willis MD Section of Gastroenterology and Hepatology [facility] [place] [address] V: [phone] F: [phone] CC/EC: PCP documented in this encounter Plan of Treatment Upcoming Encounters Date Type Department Care Team (Late st Contact Info) Description 09/21/2024 10:[address] [place] [address] Rachel Carrasco MD [facility] [place] [address] 09/21/2024 11:00 AM EST [place] [address] Rachel Carrasco MD [facility] [place] [address] documented as of this encounter Visit Diagnoses Diagnosis Gastroesophageal reflux disease, esophagitis presence not specified documented in this encounter Care Teams Excellence Specialist Relationship Specialty Start Date End Date Bin Bowman MD [address] [place] [id number] PCP - General General Internal Medicine 04/21/1707/11 documented as of this encounter
--- OUTSIDE RECORDS SUMMARY | 2024-07-21 11:33 | XMS_ITS | Encounter Summary ---
Author Organization [facility] [place] [address] Care Team Providers Care Taker Off Drying Kiln Name Role Phone Bin Bowman MD Primary Care Provider [phone] Reason for Visit * Reason Comments Medication Refill Encounter Details Date Type Department Care Team (Late st Contact Info) Description 12/31/2017 [place] [address]1000 Hawk Coker DO [facility] HEMATOLOGY/[place] [address] Social History Tobacco Use Types Packs/Day Years [...] 10:[address] [place] [address] Rachel Carrasco MD [facility] [place] [address] 09/21/2024 11:00 AM EST [place] [address] Rachel Carrasco MD [facility] [place] [address] documented as of this encounter Visit Diagnoses Not on filedocumented in this encounter Care Teams Taker Off Drying Kiln Relationship Specialty Start Date End Date Bin Bowman MD [address] [place] [address] PCP - General General Internal Medicine 04/21/1707/11 documented as of this encounter
--- OUTSIDE RECORDS SUMMARY | 2024-07-21 11:33 | XMS_ITS | Encounter Summary ---
Author Organization [facility] [place] [address] Care Team Providers Care Recovery Unit Operator Name Role Phone Bin Bowman MD Primary Care Provider Encounter Details Date Type Department Care Team (Late st Contact Info) Description 07/18/2017 [place] [address] Nargis Santillan MD [facility] CRITICAL [place] [address] Social History Tobacco Use Types Packs/Day Years [...] Referring Provider: Dr. Merry Osuna Patient Location: [facility] ED Presenting Symptoms per OSH: Fire [...] 10:[address] [place] [place] [address] Rachel Carrasco MD [facility] [place] [address] 09/21/2024 11:00 AM EST [place] [address] Rachel Carrasco MD [facility] [place] [address] documented as of this encounter Visit Diagnoses Not on filedocumented in this encounter Care Teams Recovery Unit Operator Relationship Specialty Start Date End Date Bin Bowman MD [address] [place] [phone] PCP - General General Internal Medicine 04/21/1707/11 documented as of this encounter
--- OUTSIDE RECORDS SUMMARY | 2024-07-21 11:33 | XMS_ITS | Encounter Summary ---
Author Organization [facility] [place] [address] Care Team Providers Care Opal Polisher Name Role Phone Bin Bowman MD Primary Care Provider Reason for Visit * Reason Comments Medication Refill Encounter Details Date Type Department Care Team (Late st Contact Info) Description 11/01/2017 [place] [phone] Hawk Coker DO [facility] HEMATOLOGY/[place] [address] Social History Tobacco Use Types Packs/Day Years [...] 10:[address] [place] [place] [address] Rachel Carrasco MD [facility] [place] [address] 09/21/2024 11:00 AM EST [place] [address] Rachel Carrasco MD [facility] [place] [address] documented as of this encounter Visit Diagnoses Not on filedocumented in this encounter Care Teams Opal Polisher Relationship Specialty Start Date End Date Bin Bowman MD [address] [place] [phone] PCP - General General Internal Medicine 04/21/1707/11 documented as of this encounter
--- OUTSIDE RECORDS SUMMARY | 2024-07-21 11:33 | XMS_ITS | Encounter Summary ---
Author Organization [facility] [place] [address] Care Team Providers Care Sanitizer Name Role Phone Bin Bowman MD Primary Care Provider [phone] Reason for Visit * Reason Comments Medication Refill Encounter Details Date Type Department Care Team (Late st Contact Info) Description 12/02/2017 [place] [phone] Hawk Coker DO [facility] HEMATOLOGY/[place] [address] Social History Tobacco Use Types Packs/Day Years [...] 10:[address] [place] [place] [phone] Rachel Carrasco MD [facility] [place] [address] 09/21/2024 11:00 AM EST [place] [address] Rachel Carrasco MD [facility] [place] [address] documented as of this encounter Visit Diagnoses Not on filedocumented in this encounter Care Teams Sanitizer Relationship Specialty Start Date End Date Bin Bowman MD [address] [place] [address] PCP - General General Internal Medicine 04/21/1707/11 documented as of this encounter
--- OUTSIDE RECORDS SUMMARY | 2024-07-21 11:33 | XMS_ITS | Encounter Summary ---
[place] [address] Care Team Providers Care Manager Payer Name Role Phone Bin Bowman MD Primary Care Provider Reason for Visit * Surgical (Routine) - Specialty Diagnoses / Procedures Referred By Zeyad mishra Referred To Contact Gastroenterology Diagnoses Gastroesophageal reflux disease, esophagitis presence not specified GERD Procedures Farmer Capsule pH Test Farmer Breonna Ambrocio, COLOR BUFFER [address] [place] [address] [facility] [address] [place] [address] Referral ID Status Reason Start Date Expiration Date V isits Requested Visits Authorized [id number] Consult, Test & Treat 10/07/2017 10/07/2018 1 1 Encounter Details Date Type Department Care Team (Latest Contact Info) Description 12/29/2017 10:00 AM EST Procedure [place] [address] Gastroesophageal reflux disease, esophagitis presence not specified [...] of Farmer procedure and use of the data analysis assistant. documented in this encounter Plan of Treatment Upcoming Encounters Date Type Department Care Team (Late st Contact Info) Description 09/21/2024 10:[address] [place] [address] Rachel Carrasco MD [facility] [place] [address] 09/21/2024 11:00 AM EST Office [place] [address] Rachel Carrasco MD [facility] [place] [address] Scheduled Orders Name Type Priority Associated Diagnoses Orde r Schedule Farmer Capsule pH Test Procedures Routine Gastroesophageal reflux disease, esophagitis presence not specified Ordered: 10/07/2017 documented as of this encounter Visit Diagnoses Diagnosis Gastroesophageal reflux disease, esophagitis presence not specified documented in this encounter Care Teams Manager Payer Relationship Specialty Start Date End Date Bin Bowman MD [address] [place] [address] PCP - General General Internal Medicine 04/21/1707/11 documented as of this encounter
--- OUTSIDE RECORDS SUMMARY | 2024-07-21 11:33 | XMS_ITS | Encounter Summary ---
Author Organization [facility] [place] [address] Care Team Providers Care Rug Inspector Name Role Phone Bin Bowman MD Primary Care Provider [phone] Encounter Details Date Type Department Care Team (Late st Contact Info) Description 12/29/2017 11:11 AM EST Anesthesia [place] [address] Nicole Hardin DO [facility] [place] [address] Anesthesia Record Procedure Summary Procedure Name Responsible [...] Hardin DO - 12/29/2017 5:17 PM EST [facility] Department of Anesthesiology Post-procedure Note Patient: Rolo Aguilar Procedure Summary Date Anesthesia Start Anesthesia Stop Room / Location 12/29/17 1111 1135 [facility] ENDO 4 / [facility] ENDOSCOPY Procedure Diagnosis Surgeon Responsible Provider EGD, UPPER GI ENDOSCOPY (N/A Trunk); UPPER GASTROINTESTINAL ENDOSCOPY,WITH BIOPSY SINGLE OR MULTIPLE (WRVU 2.49) (N/A ) Bloating; Gastroesophageal reflux disease, esophagitis presence not specified; Dysphagia, unspecified type; Diarrhea, unspecified type (?GERD, PUD, ?Gastritis, stricture; OJEDA placement; (consult)) Yusuf Tucker MD Joshi, [place], DO All Anesthesia Providers: Anesthesiologist: Nicole Hardin DO PROBATION COUNSELOR: Annabella Lorenzo CRNA Most Recent Vitals: 12/29/17 [...] week) and has lost 70 lbs since WI. No further symptoms of chest pressure since WI. Follow up Echo in 11/2017- resolved WMA according to patient. Patient nervous because he woke up during last EGD. Rarely snores since losing weight. denies that him holding his breath during sleep. NPO confirmed Region - Other Informed Consent: Anesthetic plan and risks discussed with patient and spouse. Plan discussed with PROBATION COUNSELOR and attending. PAT Staff Note documented in this encounter Plan of Treatment Upcoming Encounters Date Type Department Care Team (Late st Contact Info) Description 09/21/2024 10:[address] [place] [place] [address] Rachel Carrasco MD [facility] [place] [address] 09/21/2024 11:00 AM EST [place] [phone] Rachel Carrasco MD [facility] [place] [address] documented as of this encounter Visit Diagnoses [...] mL/hr documented in this encounter Care Teams Rug Inspector Relationship Specialty Start Date End Date Bin Bowman MD [address] [place] [id number] PCP - General General Internal Medicine 04/21/1707/11 documented as of this encounter
--- OUTSIDE RECORDS SUMMARY | 2024-07-21 11:33 | XMS_ITS | Encounter Summary ---
Author Organization [facility] [place] [address] Care Team Providers Care Material Worker Name Role Phone Bin Bowman MD Primary Care Provider Reason for Visit * Reason Comments Medication Refill Encounter Details Date Type Department Care Team (Late st Contact Info) Description 12/03/2017 Refill [place] [phone] Hawk Coker DO [facility] HEMATOLOGY/[place] [address] Social History Tobacco Use Types Packs/Day Years [...] 10:[address] [place] [phone] Rachel Carrasco MD [facility] [place] [address] 09/21/2024 11:00 AM EST Office [place] [address] Rachel Carrasco MD [facility] [address] documented as of this encounter Visit Diagnoses Not on filedocumented in this encounter Care Teams Material Worker Relationship Specialty Start Date End Date Bin Bowman MD [address] [place] [id number] PCP - General General Internal Medicine 04/21/1707/11 documented as of this encounter
--- OUTSIDE RECORDS SUMMARY | 2024-07-21 11:33 | XMS_ITS | Encounter Summary ---
[place] [address] Care Team Providers Care [employer] Spacelift Name Role Phone Bin Bowman MD Primary Care Provider Encounter Details Date Type Department Care Team (Late st Contact Info) Description 12/04/2017 Telephone [place] [phone] Dimple Wolf, RN Social History Tobacco Use [...] 10:04 AM EST Leslie calls from the [facility] pharmacy in [place], [place] stating, patient asked me to call the office. He was seen in the ED and prescribed Esomeprazole, which is not covered by his [place] Medicaid. Returned call to above caller to [...] AM EST [place]ment [place] [phone] Rachel Carrasco MD [facility] [place] [address] 09/21/2024 11:00 AM EST Office [place] [phone] Rachel Carrasco MD [facility] [place] [address] documented as of this encounter Visit Diagnoses Not on filedocumented in this encounter Care Teams [employer] Spacelift Relationship Specialty Start Date End Date Bin Bowman MD [address] [place] [id number] PCP - General General Internal Medicine 04/21/1707/11 documented as of this encounter
--- OUTSIDE RECORDS SUMMARY | 2024-07-21 11:33 | XMS_ITS | Encounter Summary ---
Author [facility] [place] [address] Care Team Providers Care Mulling Machine Operator Name Role Phone Bin Bowman MD Primary Care Provider [phone] Encounter Details Date Type Department Care Team (Late st Contact Info) Description 07/16/2017 [place]phone [place] [address] Abhi Melendez MD [facility] [place] [address] Social History Tobacco Use Types Packs/Day Years [...] 10:[address] [place] [place] [address] [facility] [place] [address] 09/21/2024 11:00 AM EST [place] [address] [facility] [place] [address] documented as of this encounter Visit Diagnoses Not on filedocumented in this encounter Care Teams Mulling Machine Operator Relationship Specialty Start Date End Date Bin Bowman MD [address] [place] [id number] PCP - General General Internal Medicine 04/21/1707/11 documented as of this encounter
--- OUTSIDE RECORDS SUMMARY | 2024-07-21 11:33 | XMS_ITS | Encounter Summary ---
Author Organization [facility] [place] [address] Care Team Providers Care Corporate Representative Name Role Phone Bin Bowman MD Primary Care Provider Reason for Visit * Reason Comments Medication Refill Encounter Details Date Type Department Care Team (Late st Contact Info) Description 12/30/2017 Refill [place] [phone] Hawk Coker DO [facility] HEMATOLOGY/[place] [address] Social History Tobacco Use Types Packs/Day Years [...] 10:[address] [place] [place] [phone] Rachel Carrasco MD [facility] [place] [address] 09/21/2024 11:00 AM EST [place] [address] Rachel Crarasco MD [facility] [place] [address] documented as of this encounter Visit Diagnoses Not on filedocumented in this encounter Care Teams Corporate Representative Relationship Specialty Start Date End Date Bin Bowman MD [address] [place] [id number] PCP - General General Internal Medicine 04/21/1707/11 documented as of this encounter
--- OUTSIDE RECORDS SUMMARY | 2024-07-21 11:34 | XMS_ITS | Encounter Summary ---
Author Organization [facility] [place] [address] Care Team Providers Care Dredge Boat Engineer Name Role Phone Severo Bowman MD Primary Care Provider Reason for Visit * Auth/Cert Specialty Diagnoses / Procedures Referred By Zeyad mishra Referred To Contact Diagnoses STEMI (ST elevation myocardial infarction) STEMI STEMI Procedures CARDIAC CATHETERIZATION Referral ID Status Reason Start Date Expiration Date Visits Re quested Visits Authorized [id number] 1 1 Encounter Details Date Type Department Care Team (Late st Contact Info) Description 07/13/2017 10:54 AM EDT - 07/13/2017 12:36 PM EDT [place] [address] Neftali White MD [facility] [place] [address] CARDIAC CATHETERIZATION Social History Tobacco Use Types [...] Rolo Aguilar Patient Age: 46 y.o. Language: Yakut Race: White Ethnicity: Not nor Admit date: 07/13/2017 Discharge date and time: 07/16/2017 Attending Physician: Ky Amato MD Discharge Physician: Hawk Coker DO (Resident) ID: Mr. Aguilar is a 46yo w/ pMHx Of HTN, HLD, GERD, morbid obesity, depression, bipolar, who presents as transfer from [facility] for chest pain and inferior [...] medications as appropriate - Cardiac rehab in [facility] Discharge Diagnoses (Hospital Problems) and Secondary [...] depression, bipolar, who presents as transfer from [facility] for chest pain and inferior [...] called the ambulance, who transported him to [facility], where he was loaded plavix, started on heparin gtt, and tNK was already loaded with ASA at home). He also received 1L of NS for BP in the 90/50s. It took an 1 to 1.5 hr to get to [facility]. ?? In director of cardiac cath lab, LM was normal, RCA was normal, LAD was normal, LCD 85% long segmental stenosis of ELEANOR.S/p EMMY in OM1. ?? Patient denies recent illnesses, diarrhea, constipation, coughs, sick contacts Hospital Course: Rolo Aguilar was admitted to the Medicine Service on 07/13/2017 in stable condition. The following issues were addressed during this admission and he was discharged on 07/16/2017 ACS On admission to [facility], the patient was taken emergently to the director of cardiac cath lab. Prior to discharge he had aCXR showing mild pulmonary edema. This was from acute diastolic heart failure. His cath showed one vessel coronary artery disease of the LCX, he received EMMY to his proximal OM1 lesion. On transfer to the [facility], the patient was chest pain free and [...] was initially held in the setting ofacute CO. This was discussed at length with the [...] ventricular segmental wall motion abnormalities present at [facility] inferolateral wall, as coded in the [...] appointments: During 8am-5pm Friday through Friday call [phone] to speak with a nurse in the cardiology clinic All other times call [phone] and ask to speak to the beck operator personnel security specialist. Activity level: - No heavy lifting [...] [facility] 09/19/2017 9:30 AM Breonna Ambrocio, B[facility] [place] [facility] Cardiology Follow-up: Dr. Montes -- August 01, 1:30PM PCP Follow-up: JONATAN Hay -- July 28, 11:00AM -- [phone] Your Inpatient Doctor(s) at [facility]: Ky Amato MD - Attending physician Hawk Coker DO - Resident physician Maryuri Sanchez MD - Hotel Manager physician Your Primary Care Provider: Severo Bowman MD [address] / [place] [address] For questions regarding issues relating to your hospitalization on the Hospital Medicine Service, please contact your inpatient physician through the [facility] Bi Tester [phone]. Issues after hours and on weekends will be handled by the Hospitalist staff on-call. General Instructions None Future Appointments and Orders Future Appointments Provider Department Dept Phone 09/10/2017 3:00 PM [facility] [phone] 09/19/2017 9:30 AM Breonna Ambrocio APRN [facility] [place] [phone] Future Orders Complete By Expires Referral to Cardiac Rehab [[id number] Custom] As directed Process Instructions: If no progress note charted, please enter Clinical details in comments. Scheduling Instructions: Questions: My question or request is: STEMI. Cardiac rehab at [facility] Provider Contact Information: Severo Bowman MD [address] / [place] [address] Discharge References/Attachments: Discharge References/Attachments None documented in [...] appointments: During 8am-5pm Friday through Friday call [phone] to speak with a nurse in the cardiology clinic All other times call [phone] and ask to speak to the beck operator personnel security specialist. Activity level: - No heavy lifting [...] 3:00 PM [facility] 09/19/2017 9:30 AM Breonna Ambrocio APRN [facility] Cardiology Follow-up: Dr. Montes -- August 01, 1:30PM PCP Follow-up: JONATAN Hay -- July 28, 11:00AM -- [phone] Your Inpatient Doctor(s) at [facility]: Ky Amato MD - Attending physician Hawk Coker DO - Resident physician Maryuri Sacnhez MD - Hotel Manager physician Your Primary Care Provider: Severo Bowman MD [address] / [place] [address] For questions regarding issues relating to your hospitalization on the Hospital Medicine Service, please contact your inpatient physician through the [facility] Bi Tester [phone]. Issues after hours and on weekends will [...] by cardiac rehab. Twyla Chaudhary, PT Pager [phone] * Ky Amato MD - 07/15/2017 6:26 [...] an inferoposterior ST elevation myocardial infarction to [facility]. He was treated with thrombolytic drugs [...] lesions, no petechiae Labs: Recent Labs 07/15/17 04307/14/17 0320 07/13/17 1500 WBC 9.5 11.5* 10.2* [...] OM1 and hemodynamically stable. Received tNK at [facility] prior to transfer. Hemodynamically stable so [...] MD PGY1 Internal Medicine Cardiology S1 Pager [phone] Attending Addendum: The patient was seen and examined in conjunction with the resident on rounds. My history, physical exam findings, assessment, and plan are reflected in that note. Lab and relevant imaging data was reviewed and the plan was communicated with the patient and available family. Doing well and approaching d/c. Advance GDT for CAD meds. Ky Amato MD, [facility] Attending Over Short And Damage Clerk Pager [phone] * Veena Marx - 07/13/2017 7:15 PM [...] c/d/i, no tenderness to palpation. Abd: No Haywood's sign. Ext: LE warm with 2+ DP [...] PCP: Severo Bowman MD PCP phone #: [phone] ID/Chief Complaint: 46yo male History of Present Illness: Mr. Aguilar is a 46yo w/ pMHx Of HTN, HLD, GERD, morbid obesity, depression, bipolar, who presents as transfer from [facility] for chest pain and inferior [...] called the ambulance, who transported him to [facility], where he was loaded plavix, started on heparin gtt, and tNK was already loaded with ASA at home). He also received 1L of NS for BP in the 90/50s. It took an 1 to 1.5 hr to get to [facility]. In director of cardiac cath lab, LM was normal, RCA was normal, LAD [...] use Living Situation: Lives with mother in [place], [place]. Sees Dr. Bowman ([facility]), Sindhu Diana ([facility]). In good relationship with . 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 Invalid input(s): SLEBICHUSRN0P Heme: No results for input(s): LDH, HAPTOGLOBIN, [...] acute inferior STEMI, now s/p cath in 1 and hemodynamically stable. Received tNK at [facility] prior to transfer. #Inferior STEMI s/p [...] Status: full - Dispo: pending transfer to [facility] Maryuri Sanchez MD PGY1 Internal Medicine Cardiology S1 Pager [phone] Attending Addendum: The patient was seen and [...] an inferoposterior ST elevation myocardial infarction to [facility]. He was treated with thrombolytic drugs and transferred for immediate catheterization. In the Cmm Inspector, radial access was difficult due to a [...] 3 day hospital course. 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 He quit smoking 3 years ago. Recently, he made changes in his diet and began walking 3 miles every day. He has lost 40 lbs and is motivated to continueto lose weight and exercise. Reviewed home exercise program with him. He is very interested in participating in cardiac rehab. Participation to an outpatient cardiac rehabilitation program at [facility] was discussed. Patient agrees to [...] w/rails, lives in basement [address] [facility] [address] Social & Family Supports/Community Resources: Autumn Extended Emergency Contact Information Primary Emergency Contact: Autumn Aguilar Address: [address] [place] [address] [place] Relation: Spouse Secondary Emergency Contact: Whitney Piedra Address: [address] [place] [address] [place] Relation: Sibling Behavioral Health History: History depression, anxiety, and bipolar Substance Use/Abuse: Quit smoking 3 years ago, rare alcohol use, denies illicit drug use Other Pertinent/Service Specific Information: None Health/Prescription Coverage: Payor: [place]ICAID [place] / Plan: [place]ICA[place] PRIMARY CARE PLUS / Product Type: *No Product type* / Secondary Insurance: None Prescription Coverage: see above Preferred Pharmacy: [id number] - [place], [place] - [address] [place] [address] Other: None Primary Care Provider: Severo Bowman MD [phone] Patient/Caregiver Goals of Treatment: Safe dc plan [...] planning. NEGRITA Smith, MS, BSN, RN, Pager [phone] Office of Care Management * Plan of [...] OUTCOME EVALUATION NOTE: OUTCOME SUMMARY: Transferred from [facility], A&Ox4, denies pain or SOB. Right radial [...] 10:[address] [place] [address] Rachel Carrasco MD [facility] [place] [address] 09/21/2024 11:00 AM EST [place] [address] Rachel Carrasco MD [facility] [place] [address] Scheduled Referrals Name Type Priority Associated Diagnoses [...] METABOLIC PANEL Routine 07/14/2017 3:20 AM EDT GUEST SERVICE MANAGER SCAN 07/14/2017 12:00 AM EDT CARDIAC ENZYMES ([facility]) Routine 07/13/2017 9:10 PM EDT XR CHEST ONE VIEW Routine 07/13/2017 7:5 5 PM EDT POCT GLUCOSE Routine 07/13/2017 7:30 PM EDT EKG 12-LEAD Routine 07/13/2017 3:[address] elevation myocardial infarction (STEMI), unspecified artery POCT GLUCOSE Routine 07/13/2017 3:01 PM EDT HEMOGRAM STAT 07/13/2017 3:00 PM EDT DIFFERENTIAL, AUTOMATED STAT 07/13/20 3:00 PM EDT CARDIAC ENZYMES ([facility]) STAT 07/13/2017 3:00 PM EDT APTT Routine [...] (Bezet) 409 ms MUSE SYSTEM Calculated P Mecca 30 degrees MUSE SYSTEM Calculated R Mecca 21 degrees MUSE SYSTEM Calculated T Mecca 14 degrees MUSE SYSTEM INTERPRETATION Normal sinus rhythm Inferior-body hanger ior infarct , age undetermined Abnormal ECG When compared with ECG of 15-JUL-2017 07:31, Inferior-body hanger ior infarct is now Present Inverted T waves have replaced nonspecific T wave abnormality in Inferior leads Confirmed by MD Jennie, Severiano ([id number]) on 07/16/2017 5:00:13 PM MUSE SYSTEM 07/16/2017 6:45 AM EDT 07/16/2017 5:00 PM EDT Ky Amato MD ECG ORDERABLES MUSE SYSTEM * Differential, Automated (07/16/2017 5:16 AM EDT) Pathologist [facility] Neutrophil % 61.5 % [facility] Neutrophil Absolute 5.29 1.70 - 6.10 x10(3)/[facility] LABORATORY Lymph % 28.6 % [facility] Lymphocytes Abs 2.5 0.9 - 3.2 x10(3)/[facility] LABORATORY Monocyte % 7.7 % [facility] Monocyte Abs 0.7 0.3 - 0.9 x10(3)/[facility] LABORATORY Eos % 1.2 % [facility] Eosinophils Abs 0.1 0.0 - 0.4 x10(3)/[facility] LABORATORY Basophil % 0.5 % [facility] Baso Absolute 0.0 0.0 - 0.1 x10(3)/[facility] LABORATORY Immature Gran % 0.50 % [facility] Comment: Immature granulocytes(IG's)percentage and absolute count will include metamyelocytes, myelocytes, and promyelocytes. Blood smears from CBCs yielding IG's will be scanned manually for concordance. If this scan disagrees with the automated IG or if promyelocytes are noted, a manual differential will be performed. Immature Gran Absolute 0.04 0.00 - 0.04 x10(3)/mcL [facility] Blood specimen (specimen) 07/16/2017 5:16 AM EDT 07/16/2017 5:31 AM EDT Narrative Resulting Agency Comment Spec In Lab Ky Amato MD HEMATOLOGY ORDERABLE S [facility] [place] [address] * (ABNORMAL) Hemogram (07/16/2017 5:16 AM EDT) White Blood Cell 8.6 4.0 - 9.5 x10(3)/mc L [facility] Red Blood Cell 3.94(L) 4.58 - 5.54 x10(6)/mc L [facility] Hemoglobin 11.6(L) 13.7 - 16.5 gm/dL [facility] Hematocrit 34.5(L) 40.5 - 48.5 % [facility] Mean Cell Volume 87.6 82.9 - 93.1 fL [facility] Mean Cell Hemoglobin 29.4 27.5 - 32.1 pg [facility] Mean Cell Hemoglobin Concentration 33.6 32.0 - 35.7 gm/dL [facility] Platelet 128(L) 145 - 357 x10(3)/mc L [facility] RDW Standard Deviation 43.5 36.0 - 45.0 fL [facility] RDW coefficient of variation 13.5 11.4 - 13.8 % [facility] Mean Platelet Volume 10.0 7.6 - 12.9 fL [facility] NRBC% auto 0.0 % [facility] NRBC Absolute 0.000 0.000 - 0.000 x10(3)/mc L [facility] Blood specimen (specimen) 07/16/2017 5:16 AM EDT 07/16/2017 5:31 AM EDT Narrative Resulting Agency Comment Spec In Lab Ky Amato MD HEMATOLOGY ORDERABLE S Performing Organization Address City/[facility]/ZIP Co de Phone Number [facility] [place] [address] * Magnesium (07/16/2017 5:16 AM EDT) [facility] Magnesium 0.82 0.69 - 1.07 mmol/L [facility] Blood specimen (specimen) 07/16/2017 5:16 AM EDT 07/16/2017 5:31 AM EDT Narrative Resulting Agency Comment Spec In Lab Ky Amato MD CHEMISTRY ORDERABLES Performing Organization Address City/[facility]/ZIP Co de Phone Number [facility] [place] [address] * Basic Metabolic Panel (non-fasting) (07/16/2017 5:16 AM EDT) [facility] Glucose 107 65 - 199 mg/dL [facility] Comment:Diabetes: >=200 mg/d L plus symptoms Blood Urea Nitrogen 11 10 - 20 mg/dL [facility] Creatinine 1.05 0.80 - 1.50 mg/dL [facility] Comment: Please note that the pediatric reference intervals supplied above were not validated at [facility]. Results from pediatric patients should be interpreted in conjunction to the patient's age, height and muscle mass. Sodium 139 135 - 145 mmol/L [facility] Potassium 4.0 3.5 - 5.0 mmol/L [facility] Comment: Please note: ??Patients with WBC >100,000 may have falsely elevated Potassium levels. ??For accurate Potassium quantification in these patients send serum separator tube (gold top) for subsequent determinations. ??Contact the Clinical Chemistry Laboratory if there are any questions. Chloride 101 98 - 107 mmol/L [facility] Carbon Dioxide 26 22 - 31 mmol/L [facility] Anion Gap 12 5 - 15 mmol/L [facility] Calcium 9.0 8.5 - 10.5 mg/dL [facility] [...] the following links into your internet browser. [email or web address] [email or web address]/[facility] Blood specimen (specimen) 07/16/2017 5:16 AM EDT 07/16/2017 5:31 AM EDT Narrative Resulting Agency Comment Spec In Lab Ky Amato MD CHEMISTRY ORDERABLES [facility] [place] [address] * ECHO COMPLETE (07/15/2017 11:23 AM EDT) EF 60 HEARTLAB SYSTEM Anatomical Region Laterality Modality Other 07/15/2017 Narrative 07/15/2017 1:08 PM EDT Procedure: ?Transthoracic Echocardiogram Patient: ?JEFF SHERWOOD M ?(Age): 1970(46y) Med Rec#: ? [id number] ?Sex: ?M ? Site Loc: ? [facility] ?Ht / Wt: ??168(cm)/173(kg) Pt. Loc: ?Echo Lab ?BSA: ?2.64 Study Date: ?? 07/15/2017 ?Pt. Type: Inpatient Tape: ? Referring: SEVERO GREEN R Referring: Ky Amato Reading: Dao Perez ([id number]) Business Support Specialist: Gabriel Silva RDCS Diagnosis: *ICD-10-PCS ST elevation (STEMI) myocardial infarction of unspecified site (I21.3) BP: ? 100/60 SUMMARY: 1. The left ventricular chamber size is normal. ??There is normal global left ventricular systolic function. ??The quantitative left ventricular ejection fraction by biplane Malik's method is 60%. ??There are left ventricular segmental wall motion abnormalities present at [facility] inferolateral wall, as coded in the [...] E-wave Vmax ?0.9 ?m/sec ? MV deceleration [id number] ?msec ? MV A-wave Vmax ?0.5 ?m/sec [...] ? Mid-Inferior ?Normal ? Mid-Inferoseptal ?Normal ? [place]-Septal ? Normal ? [place]-Anterior ? Normal ? [place]-Lateral ?Normal ? [place]-Inferior ? Normal ? [place]-Tip ?Normal ? This report has been electronically signed by: Dao Perez MD ? 07/15/2017 13:08:41 Images reviewed and interpretation verified [facility] Cardiac Ultrasound Laboratory Procedure Note Dao Perez MD - 07/15/2017 Procedure: Transthoracic Echocardiogram Patient: JEFF Rodney (Age): 1970(46y) Med Rec#: [id number] Sex: M Site Loc: [facility] Ht / Wt: 168(cm)/173(kg) Pt. Loc: Echo Lab BSA: 2.64 Study Date: 07/15/2017 Pt. Type: Inpatient Tape: Referring: SEVERO GREEN R Referring: Ky Amato Reading: Dao Perez ([id number]) Business Support Specialist: Gabriel Silva ALISHA Diagnosis: *ICD-10-PCS ST elevation (STEMI) myocardial infarction of unspecified site (I21.3) BP: 100/60 SUMMARY: 1. The left ventricular chamber size is normal. There is normal global left ventricular systolic function. The quantitative left ventricular ejection fraction by biplane Malik's method is 60%. There are left ventricular segmental wall motion abnormalities present at [facility] inferolateral wall, as coded in the [...] MV E-wave Vmax 0.9 m/sec MV deceleration [id number] msec MV A-wave Vmax 0.5 m/sec MV [...] Normal Mid-Posterolateral Akinetic Mid-Inferior Normal Mid-Inferoseptal Normal [place]-Septal Normal [place]-Anterior Normal [place]-Lateral Normal [place]-Inferior Normal [place]-Tip Normal This report has been electronically signed by: Dao Perez MD 07/15/2017 13:08:41 Images reviewed and interpretation verified [facility] Ky Amato MD ECHO ORDERABLES * EKG 12 Lead (07/15/2017 7:31 AM EDT) Ventricular rate 81 BPM MUSE SYSTEM Atrial Rate 81 BPM MUSE SYSTEM P-R Interval 134 ms MUSE SYSTEM QRS Duration 94 ms MUSE SYSTEM Q-T Interval 354 ms MUSE SYSTEM QTC Calculated (Bezet) 411 ms MUSE SYSTEM Calculated P Mecca 36 degrees MUSE SYSTEM Calculated R Mecca 36 degrees MUSE SYSTEM Calculated T Mecca 45 degrees MUSE SYSTEM INTERPRETATION Normal sinus rhythm Normal ECG When compared with ECG of 14-JUL-2017 08:54, (unconfirmed) Criteria for Inferior-posterio r infarct are no longer Present I personally reviewed the tracing and edited the fellows interpretation Confirmed by fellow MD Linda, Jerri Rodney ([id number]) on 07/15/2017 11:45:01 AM Confirmed by MEÑO, ??KY PANDEY ([id number]) on 07/15/2017 12:47:33 PM MUSE SYSTEM 07/15/2017 7:31 AM EDT 07/15/2017 12:47 PM EDT Ky Amato MD ECG ORDERABLES MUSE SYSTEM * (ABNORMAL) Differential, Automated (07/15/2017 4:37 AM EDT) Neutrophil % 65.1 % [facility] Neutrophil Absolute 6.19(H) 1.70 - 6.10 x10(3)/[facility] LABORATORY Lymph % 23.2 % [facility] Lymphocytes Abs 2.2 0.9 - 3.2 x10(3)/[facility] LABORATORY Monocyte % 9.7 % [facility] Monocyte Abs 0.9 0.3 - 0.9 x10(3)/[facility] LABORATORY Eos % 1.3 % [facility] Eosinophils Abs 0.1 0.0 - 0.4 x10(3)/[facility] LABORATORY Basophil % 0.3 % [facility] Baso Absolute 0.0 0.0 - 0.1 x10(3)/[facility] LABORATORY Immature Gran % 0.40 % [facility] Comment: Immature granulocytes(IG's)percentage and absolute count will include metamyelocytes, myelocytes, and promyelocytes. Blood smears from CBCs yielding IG's will be scanned manually for concordance. If this scan disagrees with the automated IG or if promyelocytes are noted, a manual differential will be performed. Immature Gran Absolute 0.04 0.00 - 0.04 x10(3)/[facility] LABOR[facility]ORY Blood specimen (specimen) 07/15/2017 4:37 AM EDT 07/15/2017 4:46 AM EDT Narrative Resulting Agency Comment Spec In Lab Ky Amato MD HEMATOLOGY ORDERABLE S [facility] [place] [address] * (ABNORMAL) Hemogram (07/15/2017 4:37 AM EDT) White Blood Cell 9.5 4.0 - 9.5 x10(3)/[facility] LABOR[facility] Red Blood Cell 4.24(L) 4.58 - 5.54 x10(6)/[facility] Hemoglobin 12.3(L) 13.7 - 16.5 gm/dL [facility] Hematocrit 36.5(L) 40.5 - 48.5 % [facility] Mean Cell Volume 86.1 82.9 - 93.1 fL [facility] Mean Cell Hemoglobin 29.0 27.5 - 32.1 pg [facility] Mean Cell Hemoglobin Concentration 33.7 32.0 - 35.7 gm/dL [facility] Platelet 145 145 - 357 x10(3)/mc L [facility] RDW Standard Deviation 42.3 36.0 - 45.0 [facility]ORY RDW coefficient of variation 13.5 11.4 - 13.8 % [facility] Mean Platelet Volume 10.2 7.6 - 12.9 fL [facility] NRBC% auto 0.0 % [facility] NRBC Absolute 0.000 0.000 - 0.000 x10(3)/mc L [facility] Blood specimen (specimen) 07/15/2017 4:37 AM EDT 07/15/2017 4:46 AM EDT Narrative Resulting Agency Comment Spec In Lab Ky Amato MD HEMATOLOGY ORDERABLE S Performing Organization Address City/[facility] Co de Phone Number [facility] [place] [place] [address] * Magnesium (07/15/2017 4:37 AM EDT) Magnesium 0.96 0.69 - 1.07 mmol/L [facility] Blood specimen (specimen) 07/15/2017 4:37 AM EDT 07/15/2017 4:46 AM EDT Narrative Resulting Agency Comment Spec In Lab Ky Amato MD CHEMISTRY ORDERABLES Performing Organization Address City/[facility]/ZIP Co de Phone Number [facility] [place] [address] * Basic Metabolic Panel (non-fasting) (07/15/2017 4:37 AM EDT) Glucose 114 65 - 199 mg/dL [facility] Comment:Diabetes: >=200 mg/d L plus symptoms Blood Urea Nitrogen 10 10 - 20 mg/dL [facility] Creatinine 0.88 0.80 - 1.50 mg/dL [facility] Comment: Please note that the pediatric reference intervals supplied above were not validated at [facility] Results from pediatric patients should be interpreted in conjunction to the patient's age, height and muscle mass. Sodium 137 135 - 145 mmol/L [facility] Potassium 4.1 3.5 - 5.0 mmol/L [facility] Anion Gap 12 5 - 15 mmol/L [facility] Calcium 8.9 8.5 - 10.5 mg/dL [facility] [...] the following links into your internet browser. [email or web address] Blood specimen (specimen) 07/15/2017 4:37 AM EDT 07/15/2017 4:46 AM EDT Narrative Resulting Agency Comment Spec In Lab Ky Amato MD CHEMISTRY ORDERABLES Performing Organization Address [facility]/ZIP Co de Phone Number [facility] [place] [place] [address] * EKG 12 Lead (07/14/2017 8:54 AM EDT) Pathologist [facility] Ventricular rate 84 BPM MUSE SYSTEM Atrial Rate 84 BPM MUSE SYSTEM P-R Interval 148 ms MUSE SYSTEM QRS Duration 96 ms MUSE SYSTEM Q-T Interval 366 ms MUSE SYSTEM QTC Calculated (Bezet) 432 ms MUSE SYSTEM Calculated P [place] 40 degrees MUSE SYSTEM Calculated R [place] 36 degrees MUSE SYSTEM Calculated T [place] 62 degrees MUSE SYSTEM INTERPRETATION Normal sinus rhythm Low voltage QRS Inferior-po sterior infarct (cited on or before 13-JUL-2017 ) Abnormal ECG When compared with ECG of 13-JUL-2017 15:02, (unconfirme d) Serial changes of evolving Inferior-po sterior infarct Present Confirmed by MD Alecia, Ruperto Moya ([id number]) on 07/15/2017 12:53:12 PM MUSE SYSTEM 07/14/2017 8:54 AM EDT 07/15/2017 12:53 PM EDT Ky Amato MD ECG ORDERABLES Performing Organization Address [facility] Co de Phone Number MUSE SYSTEM * POCT Glucose (07/14/2017 8:07 AM EDT) [facility] Glucose, POC 122 65 - 199 mg/dL [facility] Comment: Supplemental ranges: <140 mg/dL before meals <180 mg/dL all other times of the day Blood specimen (specimen) 07/14/2017 8:07 AM EDT 07/14/2017 8:07 AM EDT Ky Amato MD POINT OF CARE TEST O RDERABLES Performing Organization Address [facility] Co de Phone Number [facility] [place] [place] [address] * (ABNORMAL) Cardiac Enzymes (07/14/2017 3:20 AM EDT) [facility] Troponin-T 5.83(H) 0.00 - 0.00 ng/mL [facility] Comment: result rechecked-[facility] The 99th percentile for Troponin T is less than 0.01 ng/mL, any detectable cTnT concentration using this assay should be considered elevated. According to the third universal definition of myocardial infarction the following criteria with a clinical presentation consistent with acute myocardial ischemia meets the diagnosis for a myocardial infarction (CO). Detection of a rise and/or fall of cTnT, with at least one value greater than the 99th percentile (> or = 0.01) and with at least one of the following ?? Symptoms of ischemia ?? New or presumed new significant ZM-xhrejyr-O wave (ST-T) changes or new left bundle [...] additional sample may be indicated. Reference: Third [place] Definition of Myocardial Infarction. Journal of the [place] College [employer] 2012;60:1581-98 Creatine Kinase 2,165(H) 0 - 200 unit/L [facility] Blood specimen (specimen) Venous Draw / Unknown 07/14/2017 3:20 AM EDT 07/14/2017 3:33 AM EDT Narrative Resulting Agency Comment Spec In Lab Ky Amato MD CHEMISTRY ORDERABLES [facility] [place] [address] * (ABNORMAL) Differential, Automated (07/14/2017 3:20 AM EDT) Neutrophil % 81.8 % [facility] Neutrophil Absolute 9.44(H) 1.70 - 6.10 x10(3)/mc L [facility] Lymph % 11.2 % [facility] Lymphocytes Abs 1.3 0.9 - 3.2 x10(3)/mc L [facility] Monocyte % 6.2 % [facility] Monocyte Abs 0.7 0.3 - 0.9 x10(3)/[facility] Eos % 0.1 % [facility] Eosinophils Abs 0.0 0.0 - 0.4 x10(3)/[facility] Basophil % 0.3 % [facility] Baso Absolute 0.0 0.0 - 0.1 x10(3)/[facility] Immature Gran % 0.40 % [facility] Comment: Immature granulocytes(IG's)percentage and absolute count will include metamyelocytes, myelocytes, and promyelocytes. Blood smears from CBCs yielding IG's will be scanned manually for concordance. If this scan disagrees with the automated IG or if promyelocytes are noted, a manual differential will be performed. Immature Gran Absolute 0.05(H) 0.00 - 0.04 x10(3)/[facility] Blood specimen (specimen) 07/14/2017 3:20 AM EDT 07/14/2017 3:33 AM EDT Narrative Resulting Agency Comment Spec In Lab Ky Amato MD HEMATOLOGY ORDERABLE S [facility] [place] [address] * (ABNORMAL) Hemogram (07/14/2017 3:20 AM EDT) White Blood Cell 11.5(H) 4.0 - 9.5 x10(3)/[facility] Red Blood Cell 4.56(L) 4.58 - 5.54 x10(6)/[facility] Hemoglobin 13.5(L) 13.7 - 16.5 gm/dL [facility] Hematocrit 38.8(L) 40.5 - 48.5 % [facility] Mean Cell Volume 85.1 82.9 - 93.1 fL [facility] Mean Cell Hemoglobin 29.6 27.5 - 32.1 pg [facility] Mean Cell Hemoglobin Concentration 34.8 32.0 - 35.7 gm/dL [facility] Platelet 197 145 - 357 x10(3)/mc L [facility] RDW Standard Deviation 42.0 36.0 - 45.0 fL [facility] RDW coefficient of variation 13.6 11.4 - 13.8 % [facility] Mean Platelet Volume 10.4 7.6 - 12.9 fL [facility] NRBC% auto 0.0 % [facility] NRBC Absolute 0.000 0.000 - 0.000 x10(3)/mc L [facility] Blood specimen (specimen) 07/14/2017 3:20 AM EDT 07/14/2017 3:33 AM EDT Narrative Resulting Agency Comment Spec In Lab Ky Amato MD HEMATOLOGY ORDERABLE S Performing Organization Address City/[facility]/ZIP Co de Phone Number [facility] [place] [address] * Magnesium (07/14/2017 3:20 AM EDT) Magnesium 0.70 0.69 - 1.07 mmol/L [facility] Blood specimen (specimen) 07/14/2017 3:20 AM EDT 07/14/2017 3:33 AM EDT Narrative Resulting Agency Comment Spec In Lab Ky Amato MD CHEMISTRY ORDERABLES Performing Organization Address City/[facility]/ZIP Co de Phone Number [facility] [place] [address] * (ABNORMAL) Basic Metabolic Panel (non-fasting) (07/14/2017 3:20 AM EDT) Glucose 129 65 - 199 mg/dL [facility] Comment:Diabetes: >=200 mg/d L plus symptoms Blood Urea Nitrogen 11 10 - 20 mg/dL [facility] Creatinine 0.79(L) 0.80 - 1.50 mg/dL [facility] Comment: Please note that the pediatric reference intervals supplied above were not validated at [facility] Results from pediatric patients should be interpreted in conjunction to the patient's age, height and muscle mass. Sodium 139 135 - 145 mmol/L [facility] Potassium 4.3 3.5 - 5.0 mmol/L [facility] Comment: Please note: ??Patients with WBC >100,000 may have falsely elevated Potassium levels. ??For accurate Potassium quantification in these patients send serum separator tube (gold top) for subsequent determinations. ??Contact the Clinical Chemistry Laboratory if there are any questions. Chloride 103 98 - 107 mmol/L [facility] Carbon Dioxide 22 22 - 31 mmol/L [facility] Anion Gap 14 5 - 15 mmol/L [facility] Calcium 8.6 8.5 - 10.5 mg/dL [facility] [...] the following links into your internet browser. [email or web address] Blood specimen (specimen) 07/14/2017 3:20 AM EDT 07/14/2017 3:33 AM EDT Narrative Resulting Agency Comment Spec In Lab Ky Amato MD CHEMISTRY ORDERABLES [facility] [place] [address] * TSH (07/14/2017 3:20 AM EDT) Thyroid Stimulating Hormone 1.55 0.27 - 4.20 mlU/ML [facility] Blood specimen (specimen) 07/14/2017 3:20 AM EDT 07/14/2017 3:33 AM EDT Narrative Resulting Agency Comment Spec In Lab Ky Amato MD CHEMISTRY ORDERABLES [facility] [place] [address] * (ABNORMAL) Lipid Panel (07/14/2017 3:20 AM EDT) Cholesterol, Total 121 <=239 mg/dL [facility] Triglyceride 72 <=199 mg/dL [facility] HDL Cholesterol 37(L) >=40 mg/dL [facility] LDL Cholesterol 70 <=190 mg/dL [facility] Cholesterol/HDL Ratio 3.3 ratio [facility] Lipid Interpretation See Note [facility] Comment: Lipid management should be guided by a patient? s ASCVD risk, goals and preferences. ACC/AHA Guidelines recommend high intensity statin if clinical ASCVD or LDL greater than or equal to 190 mg/dL. http://School [email or web address]/PJN-WUC-Ngmletusj Adults aged 40-75 with LDL 70-189 mg/dL should have their 10 year ASCVD risk estimated with the ACC/AHA ASCVD risk capacitor pack press operator http://tools.acc.org/LIIPB-Uovq-Bcsbxjcww/ Statin should be discussed if risk greater [...] In Lab Ky Amato MD CHEMISTRY ORDERABLES [facility] [place] [address] * Hemoglobin A1c (07/14/2017 3:20 AM EDT) Hemoglobin A1c 5.1 4.3 - 5.6 % [facility] [...] Mellitus, Diabetes Care 2013; 36: Suppl. 1, G67-18 Estimated Average Glucose 100 mg/dL [facility] [...] into estimated average glucose values. ??Diabetes Care 2008:31(8):5121-6818. Blood specimen (specimen) 07/14/2017 3:20 AM EDT 07/14/2017 3:33 AM EDT Narrative Resulting Agency Comment Spec In Lab Ky Amato MD CHEMISTRY ORDERABLES [facility] [place] [address] * SCAN DOC: GUEST SERVICE MANAGER (07/14/2017 12:00 AM EDT) Anatomical Region Laterality Modality Other Narrative 07/14/2017 12:00 AM EDT Ordered by an unspecified provider. Scanning Provider MEDIA MGR SCAN EXT O RDR/RSLT * (ABNORMAL) Cardiac Enzymes (07/13/2017 9:10 PM EDT) Troponin-T 7.00(H) 0.00 - 0.00 ng/mL [facility] Comment: Result rechecked. The 99th percentile for Troponin T is less than 0.01 ng/mL, any detectable cTnT concentration using this assay should be considered elevated. According to the third universal definition of myocardial infarction the following criteria with a clinical presentation consistent with acute myocardial ischemia meets the diagnosis for a myocardial infarction (CO). Detection of a rise and/or fall of cTnT, with at least one value greater than the 99th percentile (> or = 0.01) and with at least one of the following ?? Symptoms of ischemia ?? New or presumed new significant LH-katxaml-K wave (ST-T) changes or new left bundle [...] additional sample may be indicated. Reference: Third [place] Definition of Myocardial Infarction. Journal of the [place] College of Cardiology 2012;60:1581-98 Creatine Kinase 2,820(H) 0 - 200 unit/L [facility] Blood specimen (specimen) 07/13/2017 9:10 PM EDT 07/13/2017 9:14 PM EDT Narrative Resulting Agency Comment Spec In Lab Ky Amato MD CHEMISTRY ORDERABLES [facility] [place] [address] * XR Chest PA or AP 1 [...] fracture or focal bone lesion. Procedure Note Mlilie Lanza MD - 07/13/2017 EXAMINATION: XR CHEST [...] Glucose, POC 110 65 - 199 mg/dL [facility] Comment: Supplemental ranges: <140 mg/dL before meals <180 mg/dL all other times of the day Blood specimen (specimen) 07/13/2017 7:30 PM EDT 07/13/2017 7:30 PM EDT Ky Amato MD POINT OF CARE TEST O RDERABLES Performing Organization Address [facility] Co de Phone Number [facility] [place] [address] * EKG 12 Lead (07/13/2017 3:02 PM EDT) Ventricular rate 76 BPM MUSE SYSTEM Atrial Rate 76 BPM MUSE SYSTEM P-R Interval 158 ms MUSE SYSTEM QRS Duration 92 ms MUSE SYSTEM Q-T Interval 378 ms MUSE SYSTEM QTC Calculated (Bezet) 425 ms MUSE SYSTEM Calculated P [place] 39 degrees MUSE SYSTEM Calculated R [place] 51 degrees MUSE SYSTEM Calculated T [place] 68 degrees MUSE SYSTEM INTERPRETATION Normal sinus rhythm Inferior-poste rior infarct , possibly acute * ACUTE CO ?? Consider right ventricular involvement in acute inferior infarct Abnormal ECG No previous ECGs available Confirmed by MD Alecia, Ruperto Moya ([id number]) on 07/15/2017 12:53:01 PM MUSE SYSTEM 07/13/2017 3:02 PM EDT 07/15/2017 12:53 PM EDT Ky Amato MD ECG ORDERABLES Performing Organization Address [facility] Phone Number MUSE SYSTEM * POCT Glucose (07/13/2017 3:01 PM EDT) Glucose, POC 113 65 - 199 mg/dL [facility] Comment: Supplemental ranges: <140 mg/dL before meals <180 mg/dL all other times of the day Blood specimen (specimen) 07/13/2017 3:01 PM EDT 07/13/2017 3:01 PM EDT Ky Amato MD POINT OF CARE TEST O RDERABLES Performing Organization Address [facility] Co de Phone Number [facility] [place] [address] * (ABNORMAL) Differential, Automated (07/13/2017 3:00 PM EDT) Neutrophil % 80.0 % [facility] Neutrophil Absolute 8.14(H) 1.70 - 6.10 x10(3)/[facility] Lymph % 14.4 % [facility] Lymphocytes Abs 1.5 0.9 - 3.2 x10(3)/[facility] Monocyte % 4.8 % [facility] Monocyte Abs 0.5 0.3 - 0.9 x10(3)/[facility] Eos % 0.1 % [facility] Eosinophils Abs 0.0 0.0 - 0.4 x10(3)/[facility] Basophil % 0.3 % [facility] Baso Absolute 0.0 0.0 - 0.1 x10(3)/[facility] Immature Gran % 0.40 % [facility] Comment: Immature granulocytes(IG's)percentage and absolute count will include metamyelocytes, myelocytes, and promyelocytes. Blood smears from CBCs yielding IG's will be scanned manually for concordance. If this scan disagrees with the automated IG or if promyelocytes are noted, a manual differential will be performed. Immature Gran Absolute 0.04 0.00 - 0.04 x10(3)/[facility] Blood specimen (specimen) 07/13/2017 3:00 PM EDT 07/13/2017 3:18 PM EDT Narrative Resulting Agency Comment Spec In Lab Ky Amato MD HEMATOLOGY ORDERABLE S [facility] [place] [address] * (ABNORMAL) Hemogram (07/13/2017 3:00 PM EDT) White Blood Cell 10.2(H) 4.0 - 9.5 x10(3)/[facility] Red Blood Cell 4.60 4.58 - 5.54 x10(6)/mc L [facility] Hemoglobin 13.4(L) 13.7 - 16.5 gm/dL [facility] Hematocrit 39.8(L) 40.5 - 48.5 % [facility] Mean Cell Volume 86.5 82.9 - 93.1 fL [facility] Mean Cell Hemoglobin 29.1 27.5 - 32.1 pg [facility] Mean Cell Hemoglobin Concentration 33.7 32.0 - 35.7 gm/dL [facility] Platelet 193 145 - 357 x10(3)/mc L [facility] RDW Standard Deviation 41.3 36.0 - 45.0 fL [facility] RDW coefficient of variation 13.4 11.4 - 13.8 % [facility] Mean Platelet Volume 9.9 7.6 - 12.9 fL [facility] NRBC% auto 0.0 % [facility] NRBC Absolute 0.000 0.000 - 0.000 x10(3)/mc L [facility] Blood specimen (specimen) 07/13/2017 3:00 PM EDT 07/13/2017 3:18 PM EDT Narrative Resulting Agency Comment Spec In Lab Ky Amato MD HEMATOLOGY ORDERABLE S Performing Organization Address City/State/[facility] Co de Phone Number [facility] [place] [address] * (ABNORMAL) APTT (07/13/2017 3:00 PM EDT) [facility] Signature Partial Thromboplastin Time 138(Criti torey) 25 - 35 sec [facility] Comment: Called by: ALEXIA, Read back by: Germaine Núñez/CVADELINE, Date/Time:07/13/17 15:39. The recommended therapeutic range for full dose, unfractionated heparin at [facility] is 80 ? 114 seconds. The use of the anti-Xa (heparin) level rather than the PTT is recommended for monitoring anticoagulation intensity in critically ill patients receiving unfractionated heparin by continuous IV infusion. Blood specimen (specimen) 07/13/2017 3:00 PM EDT 07/13/2017 3:18 PM EDT Narrative Resulting Agency Comment Spec In Lab Ky Amato MD HEMATOLOGY ORDERABLE S Performing Organization Address [facility] de Phone Number [facility] [place] [address] * (ABNORMAL) Prothrombin Time (07/13/2017 3:00 PM EDT) Prothrombin Time 16.0(H) 12.0 - 15.0 sec [facility] [...] International Normalization Ratio 1.2(H) 0.9 - 1.1 [facility] Blood specimen (specimen) 07/13/2017 3:00 PM EDT 07/13/2017 3:18 PM EDT Narrative Resulting Agency Comment Spec In Lab Ky Amato MD HEMATOLOGY ORDERABLE S Performing Organization Address [facility] de Phone Number [facility] [place] [address] * (ABNORMAL) Cardiac Enzymes (07/13/2017 3:00 PM EDT) Troponin-T 4.96(H) 0.00 - 0.00 ng/mL [facility] Comment: The 99th percentile for Troponin T is less than 0.01 ng/mL, any detectable cTnT concentration using this assay should be considered elevated. According to the third universal definition of myocardial infarction the following criteria with a clinical presentation consistent with acute myocardial ischemia meets the diagnosis for a myocardial infarction (CO). Detection of a rise and/or fall of cTnT, with at least one value greater than the 99th percentile (> or = 0.01) and with at least one of the following ?? Symptoms of ischemia ?? New or presumed new significant DW-dakcewr-R wave (ST-T) changes or new left bundle [...] additional sample may be indicated. Reference: Third [place] Definition of Myocardial Infarction. Journal of the [place] College of [employer]iology 2012;60:1581-98 Creatine Kinase 2,712(H) 0 - 200 unit/L [facility] Blood specimen (specimen) 07/13/2017 3:00 PM EDT 07/13/2017 3:18 PM EDT Narrative Resulting Agency Comment Spec In Lab Ky Amato MD CHEMISTRY ORDERABLES [facility] [place] [address] * (ABNORMAL) Comprehensive metabolic panel (non-fasting) (07/13/2017 3:00 PM EDT) Glucose 119 65 - 199 mg/dL [facility] Comment:Diabetes: >=200 mg/d L plus symptoms Blood Urea Nitrogen 11 10 - 20 mg/dL [facility] Creatinine 1.01 0.80 - 1.50 mg/dL [facility] Comment: Please note that the pediatric reference intervals supplied above were not validated at [facility]. Results from pediatric patients should be interpreted in conjunction to the patient's age, height and muscle mass. Sodium 139 135 - 145 mmol/L [facility] Potassium 4.4 3.5 - 5.0 mmol/L [facility] Comment: Please note: ??Patients with WBC >100,000 may have falsely elevated Potassium levels. ??For accurate Potassium quantification in these patients send serum separator tube (gold top) for subsequent determinations. ??Contact the Clinical Chemistry Laboratory if there are any questions. Chloride 103 98 - 107 mmol/L [facility] Carbon Dioxide 24 22 - 31 mmol/L [facility] Anion Gap 12 5 - 15 mmol/L [facility] Calcium 8.4(L) 8.5 - 10.5 mg/dL [facility] Protein, Total 6.0(L) 6.1 - 8.0 gm/dL [facility] Albumin 3.0(L) 3.2 - 5.2 gm/dL [facility] Aspartate Aminotransferase 193(H) 0 - 39 unit/L [facility] Alanine Aminotransferase 35 0 - 55 unit/L [facility] Alkaline Phosphatase 44 40 - 120 unit/L [facility] Bilirubin, Total 0.6 0.2 - 1.3 mg/dL [facility] Est Glomerular Filtration Rate >60 >=60 [facility] Comment: This estimated [...] the following links into your internet browser. [email or web address] [email or web address] Blood specimen (specimen) 07/13/2017 3:00 PM EDT 07/13/2017 3:18 PM EDT Narrative Resulting Agency Comment Spec In Lab Ky Amato MD CHEMISTRY ORDERABLES [facility] [place] [address] * CARDIAC CATHETERIZATION (07/13/2017 2:29 PM EDT) Anatomical Region Laterality Modality Other Narrative 07/13/2017 2:53 PM EDT ?[facility] ? Cardiac Catheterization/Intervention Report ? Patient Name: Rolo Aguilar ? Procedure Date: 07/13/2017 ? A #: [id number] ? Primary Physician: White, Neftali V ? Case #: [id number] ? File Name: [id number] ? Catheterization Order Number: [id number] ? [facility] ? Final Report [place], [place] ? Patient Name: ? Rolo Rodney Jeff ? ID#: ?[id number] ? : ?1970 ? Procedure Date: ? [...] at Catheterization: ?The patient presented with: ST-Elevation CO (STEMI) or equivalent (w/i 7 ?days). [employer] angina class was IV. This [...] dose administered prior to arrival in the director of cardiac cath lab. ?Recommend continuing clopidogrel 75 mg PO daily [...] Procedure Note Neftali White MD - 10/23/2017 [facility] Cardiac Catheterization/Intervention Report Patient Name: Rolo Aguilar Procedure Date: 07/13/2017 A #: [id number] Primary Physician: Neftali White V Case #: [id number] File Name: [id number] Catheterization Order Number: [id number] [facility] FinalReport [place], [place] Patient Name: Rolo Aguilar ID#:[id number] :[id number] Procedure Date: July 13, 2017 Case [...] at Catheterization: The patient presented with: ST-Elevation CO (STEMI) or equivalent(w/i 7 days). [employer] angina class was IV. Thispatient [...] priority for the procedure was Emergent. The [facility] indication for the procedure was STEMI (Stable [...] dose administered prior to arrival in the director of cardiac cath lab. Recommend continuing clopidogrel 75 mg PO daily [...] PRN, Starting on 07/13/17 at 1252, Until 07/13/17 at 1342, Intra-Operative (Intra-Procedure), Routine Given 07/13/2017 12:52 PM EDT 25 mcg fentaNYL 50 mcg/mL multi-dose injection ONCE PRN, Starting on 07/13/17 at 1410, Until 07/13/17 at 1412, Cath (Intra-Procedure), Routine Given 07/13/2017 2:10 PM EDT 25 mcg fentaNYL 50 mcg/mL multi-dose injection ONCE PRN, Starting on 07/13/17 at 1415, Until 07/13/17 at 1427, Cath (Intra-Procedure), Routine Given 07/13/2017 2:15 PM EDT 25 mcg heparin (porcine) injection ONCE PRN, Starting on 07/13/17 at 1352, Until 07/13/17 at 1412, Cath (Intra-Procedure), Routine Given 07/13/2017 [...] 350 mg/mL solution ONCE PRN, Starting on 07/13/17 at 1412, Until Fri07/13/17 at 1412, Cath [...] mg/mL multi-dose injection ONCE PRN, Starting on Fri07/13/17 at 1253, Until Fri07/13/17 at 1342, Cath (Intra-Procedure), Routine Given 07/13/2017 [...] 08 (Given - Provider: Mavis Gamboa RN) 0832 [...] Monsalve) 0820 (Given - Provider: Mavis Gamboa RN)2025 (Given [...] Cherelle Loaiza RN)2032 (Given - Provider: Db Monsalve)2200 (Not Given [...] 08 (Given - Provider: Mavis Gamboa RN) 08 (Given - Provider: Mavis Gamboa RN) LORazepam [...] Macias RN)2024 (Given - Provider: Db Monsalve) 818 (Given - Provider: Mavis Gamboa RN)2025 (Given - Provider: Thor Bobo, FLAVIA) 0834 (Given - Provider: Mavis Gamboa [...] Routine documented in this encounter Care Teams Dredge Boat Engineer Relationship Specialty Start Date End Date Severo Bowman MD [address] [place] [id number] PCP - General General Internal Medicine 04/21/1707/11 documented as of this encounter
--- OUTSIDE RECORDS SUMMARY | 2024-07-21 11:34 | XMS_ITS | Encounter Summary ---
Author Organization [facility] [place] [address] Care Team Providers Care Ton Container Filler Name Role Phone Bin Bowman MD Primary Care Provider Encounter Details Date Type Department Care Team (Late st Contact Info) Description 07/13/2017 Telephone Cardiology at [address] [phone] Andi Sibley MD [facility] [address] Social History Tobacco Use Types Packs/Day Years [...] Referring Provider: Dr Mir Alcantar Patient Location: [facility] Presenting Symptoms per OSH: Woke up [...] under Dr Amato. Will first go to mine laborer unless lab is busy with another patient. Andi Sibley MD 9:18 AM July 13, 2017 Senior Care Assistant Pager # [phone] documented in this encounter Plan of Treatment Upcoming Encounters Date Type Department Care Team (Late st Contact Info) Description 09/21/2024 10:[address] [place] [address] Rachel Carrasco MD [facility] [place] [address] 09/21/2024 11:00 AM EST Office [place] [address] Rachel Carrasco MD [facility] [place] [address] documented as of this encounter Visit Diagnoses Not on filedocumented in this encounter Care Teams Ton Container Filler Relationship Specialty Start Date End Date Bin Bowman MD [address] [place] [id number] PCP - General General Internal Medicine 04/21/1707/11 documented as of this encounter
--- OUTSIDE RECORDS SUMMARY | 2024-07-21 11:34 | XMS_ITS | Encounter Summary ---
[place] [address] Care Team Providers Care Power Crane Operator Name Role Phone Bin Bowman MD Primary Care Provider Reason for Visit * Reason Comments GI Problem * Consultation (Routine) - Closed Specialty Diagnoses / Procedures Referred By Contac t Referred To Contact Gastroenterology Diagnoses GERD (gastroesophageal reflux disease) GERD, dyspepsia, intermittent LUQ pain for several months. Procedures Consultation - D requests copy of consultation note Bin Bowman MD [address] [place] [address] [facility] [address] [place] [address] Referral ID Status Reason Start Date Expiration Date V isits Requested Visits Authorized [id number] Closed Connection Center Consult, Test & Treat PCP Updated and/or Approved 04/22/2017 04/22/2018 1 1 Encounter Details Date Type Department Care Team (Latest Contact Info) Description 05/23/2017 12:00 PM EDT Office [place] [address] Breonna Ambrocio, HOUSE OFFICER [address] [place] [address] Gastroesophageal reflux disease, esophagitis presence [...] Ambrocio APRN - 05/23/2017 12:00 PM EDT Camp Maintenance Supervisor: Breonna Ambrocio APRN PCP: Bin Bowman MD Requesting Provider: Bin Bowman MD Reason for Consultation This is a 46 y.o. male with a history significant for GERD, depression, anxiety, and bipolar disorder. I am seeing him as a new patient today in consult for refractory GERD symptoms. Time Spent With Patient 55 minutes of this 62 minute visit were spent in [id number] discussion and counseling the patientas detailed per [...] Was using carafate for a little while. Lovell this helped. Had an EGD in September 2016. Was told everything is normal, although patient states he feels he would like another EGD done by a building construction supervisor and not a general surgeon. Denies dysphagia, odynophagia, globus. Denies regurgitation, nausea, vomiting. Decreased appetite. Early satiety. Post-prandial bloating frequently. Denies chronic NSAID use. No anemia. Abdominal pain related to heartburn and bloating. Denies diarrhea and constipation. No cramping or urgency. No blood or mucus in stool. No anal or rectal pain. Will get chills in the dinking machine operator or late at night. 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 [...] Labs: Labs unremarkable. Available in Scan Doc. b 17 Impression/Recommendations This is a very nice [...] 2:12 PM Section of Gastroenterology & Hepatology [facility] ?? documented in this encounter Plan of Treatment Upcoming Encounters Date Type Department Care Team (Late st Contact Info) Description 09/21/2024 10:[address] [place] [place] [address] Rachel Carrasco MD [facility] [place] [address] 09/21/2024 11:00 AM EST [place] [address] Rachel Carrasco MD [facility] [address] documented as of this encounter Visit Diagnoses Diagnosis Gastroesophageal reflux disease, esophagitis presence not specified Pyrosis Heartburn Epigastric pain Abdominal pain, epigastric Lower abdominal pain Abdominal pain, other specified site documented in this encounter Care Teams Power Crane Operator Relationship Specialty Start Date End Date Bin Bowman MD [address] [place] [phone] PCP - General General Internal Medicine 04/21/1707/11 documented as of this encounter
--- OUTSIDE RECORDS SUMMARY | 2024-07-21 11:34 | XMS_ITS | Encounter Summary ---
Author Organization [facility] [place] [address] Care Team Providers Care Desktop Publishing Operator Name Role Phone Bin Bowman MD Primary Care Provider [phone] Encounter Details Date Type Department Care Team (Late st Contact Info) Description 07/13/2017 Orders Only Cardiology at [address] [phone] Andi Sibley MD [facility] [place] [address] Social History Tobacco Use Types Packs/Day Years [...] 10:[address] [place] [place] [phone] Rachel Carrasco MD [facility] [place] [address] 09/21/2024 11:00 AM EST [place] [phone] Rachel Carrasco MD [facility] [place] [address] Scheduled Orders Name Type Priority Associated Diagnoses Order Schedule Cardiac Catheterization Cardiac Cath Routine One Time for 1 Occurrences starting 07/13/2017 until 07/13/2017 documented as of this encounter Visit Diagnoses Not on filedocumented in this encounter Care Teams Desktop Publishing Operator Relationship Specialty Start Date End Date Bin Bowman MD [address] [place] [id number] PCP - General General Internal Medicine 04/21/1707/11 documented as of this encounter
--- OUTSIDE RECORDS SUMMARY | 2024-07-21 11:34 | XMS_ITS | Encounter Summary ---
Author Organization [facility] [place] [address] Care Team Providers Care Sales Agent Food Vending Service Name Role Phone Bin Bowman MD Primary Care Provider Encounter Details Date Type Department Care Team (Late st Contact Info) Description 07/13/2017 External [place] [phone] Andi Sibley MD [facility] [place] [address] Social History Tobacco Use Types Packs/Day Years [...] 10:[address] [place] [phone] Rachel Carrasco MD [facility] [place] [address] 09/21/2024 11:00 AM EST [place] [address] Rachel Carrasco MD [facility] [place] [address] documented as of this encounter Procedures Procedure [...] filedocumented in this encounter Care Teams Sales Agent Food Vending Service Relationship Specialty Start Date End Date Bin Bowman MD [address] [place] [phone] PCP - General General Internal Medicine 04/21/1707/11 documented as of this encounter
[2024-07-21 20:00] LABS: Hemoglobin A1C 5.6 % (<5.7)
[2024-07-21 20:12] LABS: ALT 54 U/L (16-63); AST 45 U/L (15-37); Albumin 3.3 g/dL (3.4-5.0); Alkaline Phosphatase 65 U/L (46-116); Anion Gap 8.5 mmol/L (3-11); BUN 9 mg/dL (7-18); Bilirubin, Total 0.63 mg/dL (0.2-1.0); CO2 28.5 mmol/L (21.0-32.0); Calcium 9.5 mg/dL (8.5-10.1); Calculated LDL 62 mg/dL (<100); Chloride 103 mmol/L (98-107); Cholesterol 127 mg/dL (<200); Estimated GFR 89.44 (mL/min/1.73m2); Glucose 112 mg/dL (74-106); HDL Cholesterol 40 mg/dL (40-60); Sodium 140 mmol/L (136-145); Total Protein 7.5 g/dL (6.4-8.2); Triglyceride 127 mg/dL (<150)
[2024-07-22 18:40] LABS: PSA, Screening 0.2 ng/mL (<=3.5)
[2024-07-22 19:23] LABS: Hepatitis C Ab w Rflx HCV PCR Negative (Negative)
[2024-07-22 19:41] LABS: HIV-1/2 Ag & Ab Screen Negative (Negative)
== END 2024-07-21 11:23 | disposition home or self-care (01) ==
LOC: NCHCN 11:22
PROVIDERS: PCP Internal Medicine; Visit Provider Physician Assistant
DX: I10 Essential (primary) hypertension (principal); R73.09 Other abnormal glucose; E66.8 Other obesity; Z12.5 Encounter for screening for malignant neoplasm of prostate; Z11.59 Encounter for screening for other viral diseases; Z11.4 Encounter for screening for human immunodeficiency virus [HIV]
CPT/HCPCS: 80053; 80061; 84153; 86803; 87389; 83036

== ENCOUNTER 2025-01-14 14:53 | Outpatient (REF) | payer MEDICAID, SELFPAY ==
[2025-01-14 19:36] LABS: Creatinine,Urine 24.91 mg/dL
[2025-01-14 19:37] LABS: Creatinine,24hr Ur 0.65 g/24hr (0.95-2.49); Total Volume 2600 ml
[2025-01-16 09:32] LABS: Calcium Urine 6.2 mg/dL (See Note); Calcium Urine 24 hr 161 mg/24hr (100-300); Timed Urine Volume 2600 mL
[2025-01-16 09:35] LABS: Timed Urine Volume 2600 mL; Uric Acid Urine 10.2 mg/dL (See Note); Uric Acid Urine 24hr 265 mg/24hrs (250-750)
[2025-01-18 12:15] LABS: Oxalate, U 0.13 mmol/24 h (0.11-0.46); Oxalate, U 11.4 mg/24 h (9.7 - 40.5); Urine Volume 2600 mL
== END 2025-01-14 14:54 | disposition home or self-care (01) ==
LOC: NCHCN 14:53
PROVIDERS: PCP Internal Medicine; Visit Provider Internal Medicine
DX: N20.9 Urinary calculus, unspecified (principal); B96.1 Klebsiella pneumoniae [K. pneumoniae] as the cause of diseases classified elsewhere
CPT/HCPCS: 81050; 82340; 82570; 83945; 84560

== ENCOUNTER 2025-07-29 10:32 | Outpatient (REF) | payer MEDICAID, SELFPAY ==
[2025-07-29 19:18] LABS: Abs Immature Grans 0.04 10^3/uL (0.0-0.06); HCT 44.5 % (40.0-50.0); HGB 14.4 g/dL (13.5-17.5); Immature Grans % 0.5 %; MCH 27.9 pg (27.0-33.0); MCHC 32.4 % (32.0-36.0); MCV 86 fL (80-95); MPV 10.6 fL (8.0-11.0); Platelet Count 194 10^3/uL (130-400); RBC 5.17 10^6/uL (4.36-5.78); RDW 14.7 % (11.8-14.1); RDW-SD 46.7 fL; WBC 8.28 10^3/uL (4.4-10.8)
[2025-07-29 19:32] LABS: ALT 49 U/L (16-63); AST 30 U/L (15-37); Albumin 3.3 g/dL (3.4-5.0); Alkaline Phosphatase 62 U/L (46-116); Anion Gap 6.3 mmol/L (3-11); BUN 7 mg/dL (7-18); Bilirubin, Total 0.5 mg/dL (0.2-1.0); CO2 30.7 mmol/L (21.0-32.0); Calcium 9.6 mg/dL (8.5-10.1); Calculated LDL 57 mg/dL (<100); Chloride 103 mmol/L (98-107); Cholesterol 122 mg/dL (<200); Estimated GFR 88.88 (mL/min/1.73m2); Glucose 122 mg/dL (74-106); HDL Cholesterol 40 mg/dL (>or=40); Potassium 4.6 mmol/L (3.5-5.1); Sodium 140 mmol/L (136-145); Total Protein 7.6 g/dL (6.4-8.2); Triglyceride 129 mg/dL (<150)
== END 2025-07-29 10:33 | disposition home or self-care (01) ==
LOC: NCHCN 10:32
PROVIDERS: PCP Internal Medicine; Visit Provider Physician Assistant
DX: I21.3 ST elevation (STEMI) myocardial infarction of unspecified site (principal); K76.0 Fatty (change of) liver, not elsewhere classified
CPT/HCPCS: 80053; 80061; 85025